=== PATIENT | female | born 1940 | race Caucasian/White ===

== ENCOUNTER → 2017-04-27 | Outpatient (CLI) | payer MEDICARE ==
[~2017-04-27] MED LIST: ASPI-983 PO; BIOT10TA PO; CETI10CA PO; FLEC100T PO; HYDR25TA4 PO; IPRA3AMP INH; LEVO75TA6 PO; LOSA50TA36 PO; METO-351 PO; METO-352 PO; METO-370 PO; MULT-1029 PO; NEBU-113 MC; POTA10TA10 PO; POTA10TA36 PO; RUTI1TAB PO; [UNRECOGNIZED DRUG - OTHER] PO
--- NOTE | 2017-04-28 19:23 | Diagnostic Imaging Report ---
Bilateral screening mammogram 2D views with tomosynthesis. The current study was also evaluated with a Computer Aided Detection (CAD) system. INDICATION: Screening. No current complaints stated on the questionnaire. COMPARISON: 01/17/16. FINDINGS: The breasts are composed of heterogeneously dense parenchyma which may decrease mammographic sensitivity. Scattered benign-appearing calcifications are seen. Allowing for technique and positional differences, no suspicious change is seen. IMPRESSION: Dense breasts with no definite change. ACR BI-RADS Category 2: Benign findings. Result letter will be mailed to the patient. Note: At least 10% of breast cancer is not imaged by mammography. Dictated on workstation # [id number]
== END ==
LOC: RAD 12:53
PROVIDERS: ATTEND Family Medicine
DX: Z12.31 Encounter for screening mammogram for malignant neoplasm of breast (principal)
CPT/HCPCS: 77067

== ENCOUNTER → 2017-08-19 | Outpatient (CLI) | payer MEDICARE ==
--- NOTE | 2017-08-19 09:52 | Diagnostic Imaging Report ---
Procedure: DEXA scan. Indication: Screening for osteoporosis. Comparison: This study does compare to the prior exam of 08/22/2015. The bone density of the hips and spine was measured. The T score for the spine is -2.3. On the prior exam the T score is -1.6. On the prior study, the T score for each hip was -1.1. On this exam, the T score for the left hip is -1.6 and for the right hip -1.7. Impression: There has been a decrease in the bone mineral density of the hips and spine. The T score values remain within the range of osteopenia but there is severe osteopenia of the spine. Dictated by: Dictated on workstation # [id number]
== END ==
LOC: RAD 08:48
PROVIDERS: ATTEND Family Medicine
DX: M85.89 Other specified disorders of bone density and structure, multiple sites (principal)
CPT/HCPCS: 77080

== ENCOUNTER → 2017-08-30 | Outpatient (CLI) | payer MEDICARE ==
--- NOTE | 2017-08-30 17:45 | Diagnostic Imaging Report ---
INDICATION: Bilateral shoulder pain and cervicalgia. AP, lateral, and odontoid views of the cervical spine are obtained. FINDINGS: There is mild diffuse narrowing of the cervical disc spaces with diffuse sclerosis about lumbar facet joints, most pronounced in the lower half of the cervical spine. No fracture is identified. Prevertebral soft tissues are unremarkable. IMPRESSION: Mild diffuse cervical degenerative disc disease and mid to lower degenerative facet arthropathy. No acute abnormality is identified. Dictated by: Dictated on workstation # [id number]
== END ==
LOC: RAD 15:24
PROVIDERS: ATTEND Family Medicine
DX: M50.30 Other cervical disc degeneration, unspecified cervical region (principal); M46.82 Other specified inflammatory spondylopathies, cervical region
CPT/HCPCS: 72040

== ENCOUNTER → 2018-09-22 | Outpatient (CLI) | payer MEDICARE ==
[~2018-09-22] MED LIST changes: -IPRA3AMP INH; +IPRA3AMP31 INH; -LOSA50TA36 PO; +LOSA50TA63 PO
--- NOTE | 2018-09-22 18:56 | Diagnostic Imaging Report ---
INDICATION: Cough. FINDINGS: Heart size is normal. There is some air trapping compatible with COPD. There is some interstitial scarring in both lung bases. There is no pleural effusion or pneumothorax. Mediastinum is unremarkable. IMPRESSION: COPD with some interstitial scarring in the lung bases. Dictated by: Dictated on workstation # [id number]
== END ==
LOC: RAD 12:23
PROVIDERS: ATTEND Family Medicine
DX: J44.9 Chronic obstructive pulmonary disease, unspecified (principal)
CPT/HCPCS: 71046

== ENCOUNTER → 2019-04-03 | Outpatient (CLI) | payer MEDICARE ==
--- NOTE | 2019-04-03 12:25 | Diagnostic Imaging Report ---
INDICATION: Routine screening. COMPARISON: Comparison is made with prior mammograms from 04/27/2017 and 01/17/2016. TECHNIQUE: 2-D and 3-D bilateral screening mammography was performed. The current study was also evaluated with a Computer Aided Detection (CAD) system. 3-D tomosynthesis was also performed and reviewed. FINDINGS: Both breasts remain heterogeneously dense, limiting the sensitivity of mammography. There is a density in the outer aspect of the left breast CC view, posterior depth, which appears more prominent than prior imaging. Additional views are recommended. This may be at the nipple line on the MLO view at posterior depth. Additional views are recommended. No other mass or suspicious microcalcifications are seen. Axillae are unremarkable. IMPRESSION: Left breast density. Additional views are recommended for further evaluation. ACR BI-RADS Category 0: Incomplete. (Needs additional imaging evaluation). Result letter will be mailed to the patient. Note: At least 10% of breast cancer is not imaged by mammography. Dictated by: Dictated on workstation # [id number]
== END ==
LOC: RAD 10:51
PROVIDERS: ATTEND Family Medicine
DX: Z12.31 Encounter for screening mammogram for malignant neoplasm of breast (principal); R92.8 Other abnormal and inconclusive findings on diagnostic imaging of breast
CPT/HCPCS: 77067

== ENCOUNTER → 2019-04-07 | Outpatient (CLI) | payer MEDICARE ==
[~2019-04-07] MED LIST changes: -METO-370 PO; +METO50TA7 PO
--- NOTE | 2019-04-07 16:20 | Diagnostic Imaging Report ---
INDICATION: Left breast density. Patient presented for additional views. COMPARISON: Correlation is made with recent screening study from 04/03/2019. EXAMINATION: 2D and 3D unilateral left diagnostic mammography was performed including spot compression CC and ML as well as conventional 90 degree lateral views. FINDINGS: There is a persistent circumscribed density in the posterior left breast at the nipple line on the ML view and slightly laterally located on the CC view. This is approximately 5 cm from the nipple. This may represent a small cyst. No suspicious calcifications are seen. IMPRESSION: Persistent 5 mm circumscribed density in the outer left breast, 5 cm from the nipple. Further evaluation with ultrasound is recommended and will be performed today. ACR BI-RADS Category 0: Incomplete. (Needs additional imaging evaluation). Result letter will be mailed to the patient. Note: At least 10% of breast cancer is not imaged by mammography. Dictated by: Dictated on workstation # [id number]
--- NOTE | 2019-04-07 16:56 | Diagnostic Imaging Report ---
INDICATION: Left breast density. COMPARISON: Correlation is made with the diagnostic mammogram earlier the same day and screening mammogram from 04/03/2019. EXAMINATION: Sonographic interrogation of the 3 o'clock location of the left breast was performed. FINDINGS: There is a simple cyst at the 3 o'clock location, 3 cm from the nipple. This measures 6 mm x 6 mm x 2 mm. This correlates in size and location of the density noted mammographically. No solid masses are seen. IMPRESSION: Simple cyst at the 3 o'clock location of the left breast, corresponding to the mammographic density. Patient may return to routine annual screening mammography. ACR BI-RADS Category 2: Benign findings. Result letter will be mailed to the patient. Note: At least 10% of breast cancer is not imaged by mammography. Dictated by: Dictated on workstation # [id number]
== END ==
LOC: RAD 14:02
PROVIDERS: ATTEND Family Medicine
DX: N60.02 Solitary cyst of left breast (principal); R92.2 Inconclusive mammogram
CPT/HCPCS: 76642

== ENCOUNTER 2019-05-03 10:50 | Outpatient (RCR) | payer MEDICARE ==
[~2019-05-03 10:50] MED LIST changes: +METO-370 PO; -METO50TA7 PO
== END 2019-05-31 | disposition home or self-care (01) ==
LOC: CR3 10:50
PROVIDERS: ATTEND Family Medicine
DX: Z29.8 Encounter for other specified prophylactic measures (principal)

== ENCOUNTER → 2019-07-13 | Outpatient (CLI) | payer MEDICARE ==
[~2019-07-13] MED LIST changes: -METO-370 PO; +METO50TA7 PO
--- NOTE | 2019-07-13 15:25 | Diagnostic Imaging Report ---
INDICATION: Lower back pain. Radiculopathy. COMPARISON: None FINDINGS: Frontal and lateral radiographic views of the chest were obtained and show exaggeration of lordotic curvature of the lumbar spine. There is no significant anterolisthesis or retrolisthesis. There is no evidence of jumped facets. Vertebral body heights are maintained. There is no evidence of acute fracture. There are mild multilevel degenerative changes consistent with intervertebral disc height loss as well as multilevel facet arthropathy and mild levoscoliotic deformity epicentered at L2. No unexpected radiopaque foreign bodies are seen. IMPRESSION: 1. Multilevel degenerative changes of the lumbar spine as above. 2. No acute fracture or dislocation. Dictated by: Dictated on workstation # [id number]
== END ==
LOC: RAD 14:48
PROVIDERS: ATTEND Family Medicine
DX: M47.26 Other spondylosis with radiculopathy, lumbar region (principal)
CPT/HCPCS: 72100

== ENCOUNTER 2019-08-17 13:00 | Outpatient (RCR) | payer MEDICARE | END 2019-10-17 | disposition home or self-care (01) | PROVIDERS: ATTEND Family Medicine | DX: M54.16 Radiculopathy, lumbar region (principal) ==

== ENCOUNTER → 2019-10-10 | Outpatient (CLI) | payer MEDICARE ==
--- NOTE | 2019-10-10 13:14 | Diagnostic Imaging Report ---
PROCEDURE: US left lower extremity venous. TECHNIQUE: Multiple real-time grayscale images were obtained over the left lower extremity in various projections. Additional duplex Doppler and color Doppler images were also obtained. INDICATION: Leg pain and swelling. There are no prior studies available for comparison. FINDINGS: There is generally good blood flow and compressibility at all levels. There is no sign of a deep venous thrombosis. During the course of the exam, an elongate 3.9 x 1.2 x 1.0 cm anechoic area was identified in the popliteal fossa. Most likely this is a Brown's cyst. IMPRESSION: 1. There is no evidence for deep venous thrombosis. 2. There is a roughly 4 cm Brown's cyst. Dictated by: Dictated on workstation # [id number]
== END ==
LOC: RAD 11:58
PROVIDERS: ATTEND Family Medicine
DX: R22.42 Localized swelling, mass and lump, left lower limb (principal); M79.605 Pain in left leg; M79.89 Other specified soft tissue disorders; M71.22 Synovial cyst of popliteal space [Baker], left knee

== ENCOUNTER → 2019-11-23 | Outpatient (CLI) | payer MEDICARE ==
[2019-11-23 14:08] LABS: BASOPHILS # (AUTO) 0.1 10^3/uL (0.0-0.1); BASOPHILS % (AUTO) 1 % (0-10); EOSINOPHILS # (AUTO) 0.3 10^3/uL (0.0-0.3); EOSINOPHILS % (AUTO) 4 % (0-10); HEMATOCRIT 38 % (35-52); HEMOGLOBIN 12.7 G/DL (11.5-16.0); LYMPHOCYTES % (AUTO) 28 % (12-44); MEAN CORPUSCULAR HEMOGLOBIN 31 PG (25-34); MEAN CORPUSCULAR HGB CONC 34 G/DL (32-36); MEAN CORPUSCULAR VOLUME 92 FL (80-99); MEAN PLATELET VOLUME 8.7 FL (7.4-10.4); MONOCYTES # (AUTO) 0.4 X 10^3 (0.0-1.0); MONOCYTES % (AUTO) 5 % (0-12); NEUTROPHILS # (AUTO) 4.4 X 10^3 (1.8-7.8); NEUTROPHILS % (AUTO) 62 % (42-75); PLATELET COUNT 286 10^3/uL (130-400); RED CELL DISTRIBUTION WIDTH 12.6 % (10.0-14.5); WHITE BLOOD COUNT 7.1 10^3/uL (4.3-11.0)
[2019-11-23 14:29] LABS: ALANINE AMINOTRANSFERASE 16 U/L (0-55); ALBUMIN 4.1 GM/DL (3.2-4.5); ALKALINE PHOSPHATASE 93 U/L (40-136); BILIRUBIN,TOTAL 0.6 MG/DL (0.1-1.0); BUN/CREATININE RATIO 20; CALCIUM 9.2 MG/DL (8.5-10.1); CARBON DIOXIDE 28 MMOL/L (21-32); CHLORIDE 103 MMOL/L (98-107); CREATININE SERUM 0.79 MG/DL (0.60-1.30); GFR ESTIMATED > 60; GLUCOSE 104 MG/DL (70-105); POTASSIUM 3.7 MMOL/L (3.6-5.0); SODIUM 139 MMOL/L (135-145); TOTAL PROTEIN 7.2 GM/DL (6.4-8.2)
--- NOTE | 2019-11-23 17:15 | Diagnostic Imaging Report ---
INDICATION: Shortness of breath. EXAMINATION: PA and lateral chest. FINDINGS: Heart size and pulmonary vascularity are normal. There is 1.3 cm nodular opacity in the right lower lung. There are no infiltrates, effusions or pneumothoraces. IMPRESSION: Pulmonary nodule in right lower lung was not apparent on previous study from 09/22/2018. Dictated by: Dictated on workstation # [id number]
== END ==
LOC: RAD 13:47
PROVIDERS: ATTEND Family Medicine
DX: R91.1 Solitary pulmonary nodule (principal); R06.02 Shortness of breath; R53.83 Other fatigue
CPT/HCPCS: 36415; 71046; 80053; 83880; 85025

== ENCOUNTER → 2019-11-27 | Outpatient (CLI) | payer MEDICARE | LOC: CARD 15:35 | PROVIDERS: ATTEND Nurse Practitioner Family | DX: I49.9 Cardiac arrhythmia, unspecified (principal); R00.0 Tachycardia, unspecified ==

== ENCOUNTER → 2019-11-30 | Outpatient (CLI) | payer MEDICARE ==
[~2019-11-30] MED LIST changes: +AMLO5TAB9 PO; +CARB10DR2 OU; +CARB15DR3 OU; +CETI10TA21 PO; +FURO40TA4 PO; +HOLD METFORMIN - RECEIVED CONTRAST 20 ML VIAL IV SCH; +IOHEXOL 350 MG/ML 100 ML (OMNIPAQUE 350) VIAL IV ONE; +LEVO75TA PO; +MAGN400T8 PO; +POTA-51 PO; +TEMA15CA PO
--- NOTE | 2019-11-30 09:22 | Diagnostic Imaging Report ---
CT CHEST W TECHNIQUE: Multiple contiguous axial images were obtained through the chest with the use of intravenous contrast. All CT scans use one or more of the following dose optimizing techniques: automated exposure control, MA and/or KvP adjustment based on a patient size and exam type, or iterative reconstruction. INDICATION: Abnormal chest x-ray with right lung nodule. Shortness of breath. COMPARISON: Two-view chest of 11/23/2019 FINDINGS: Lungs and airway: No endoluminal nodule within the trachea. Biapical subpleural scarring is present. Moderate centrilobular emphysema is seen. No pulmonary mass or consolidation. There is an irregular nodular linear focus in the right upper lobe along the lateral aspect of the trachea (image 21, series 4). No right middle or lower lobe pulmonary nodule to correspond to the radiographic abnormality indicating this was due to summation shadow of normal pulmonary vasculature. Pleura: Small bilateral pleural effusions. No pneumothorax. Heart and mediastinum: No supraclavicular or axillary lymphadenopathy. No mediastinal, hilar or juxtaphrenic lymphadenopathy. Esophagus is unremarkable. Normal caliber thoracic aorta. Upper abdomen: No acute abnormality in the upper abdomen. Atherosclerotic calcifications in the aorta. Musculoskeletal: No concerning lytic or blastic skeletal lesions. IMPRESSION: 1. There is no right basilar pulmonary nodule to correspond to the radiographic abnormality. This was due to summation shadow of normal pulmonary vasculature. 2. However, there is a mixed linear and nodular focus in the medial aspect of the right upper lobe that is highly likely due to an area of atelectasis and/or scarring. CT chest without contrast in 3 months to assess stability and exclude the possibility of neoplasm. 3. Trace bilateral pleural effusions. 4. Moderate emphysema. Dictated by: Dictated on workstation # [id number]
== END ==
LOC: RAD 08:14
PROVIDERS: ATTEND Nurse Practitioner Family
DX: J43.9 Emphysema, unspecified (principal); J90 Pleural effusion, not elsewhere classified; R91.1 Solitary pulmonary nodule
CPT/HCPCS: 71260

== ENCOUNTER 2019-12-03 20:49 | Inpatient (IN) | payer MEDICARE ==
[~2019-12-03] VITALS: Ht 160 cm; Wt 60.7 kg
[~2019-12-03 20:49] MED LIST changes: -AMLO5TAB9 PO; -CARB10DR2 OU; -CARB15DR3 OU; -CETI10TA21 PO; -FURO40TA4 PO; -HOLD METFORMIN - RECEIVED CONTRAST 20 ML VIAL IV SCH; -IOHEXOL 350 MG/ML 100 ML (OMNIPAQUE 350) VIAL IV ONE; -LEVO75TA PO; -MAGN400T8 PO; -POTA-51 PO; -TEMA15CA PO
[2019-12-03] MEDS ORDERED: dilTIAZem DRIP PRE-MIX 125 ML IV SCH (21:00)
[2019-12-03] MEDS ORDERED: ASPIRIN 81 MG CHEW (CHILDREN'S ASA) PO ONE (21:00)
[2019-12-03] MEDS ORDERED: ENOXAPARIN 80 MG/0.8 ML (LOVENOX) SYR SC ONE (21:00)
[2019-12-03] MEDS ORDERED: NS IV 1000 ML 1,000 ML IV SCH (21:08)
[2019-12-03 21:22] LABS: BASOPHILS # (AUTO) 0.1 10^3/uL (0.0-0.1); BASOPHILS % (AUTO) 1 % (0-10); EOSINOPHILS # (AUTO) 0.1 10^3/uL (0.0-0.3); EOSINOPHILS % (AUTO) 1 % (0-10); HEMATOCRIT 41 % (35-52); HEMOGLOBIN 13.7 G/DL (11.5-16.0); LYMPHOCYTES # (AUTO) 1.3 X 10^3 (1.0-4.0); LYMPHOCYTES % (AUTO) 14 % (12-44); MEAN CORPUSCULAR HEMOGLOBIN 30 PG (25-34); MEAN CORPUSCULAR HGB CONC 33 G/DL (32-36); MEAN CORPUSCULAR VOLUME 91 FL (80-99); MEAN PLATELET VOLUME 9.3 FL (7.4-10.4); MONOCYTES # (AUTO) 0.4 X 10^3 (0.0-1.0); MONOCYTES % (AUTO) 5 % (0-12); NEUTROPHILS # (AUTO) 7.5 X 10^3 (1.8-7.8); NEUTROPHILS % (AUTO) 81 % (42-75); PLATELET COUNT 262 10^3/uL (130-400); WHITE BLOOD COUNT 9.2 10^3/uL (4.3-11.0)
[2019-12-03 21:26] LABS: ALBUMIN 4.3 GM/DL (3.2-4.5); CHLORIDE 100 MMOL/L (98-107); POTASSIUM 3.8 MMOL/L (3.6-5.0); PROTHROMBIN TIME PATIENT 13.6 SEC (12.2-14.7); SODIUM 137 MMOL/L (135-145)
[2019-12-03 21:27] LABS: CALCIUM 9.4 MG/DL (8.5-10.1)
[2019-12-03 21:29] LABS: GLUCOSE 152 MG/DL (70-105); TOTAL PROTEIN 7.7 GM/DL (6.4-8.2)
[2019-12-03 21:30] LABS: CARBON DIOXIDE 20 MMOL/L (21-32)
[2019-12-03 21:31] LABS: BILIRUBIN,TOTAL 0.8 MG/DL (0.1-1.0)
[2019-12-03 21:32] LABS: ALKALINE PHOSPHATASE 116 U/L (40-136); CREATININE SERUM 0.95 MG/DL (0.60-1.30); GFR ESTIMATED 57
[2019-12-03 21:33] LABS: BUN/CREATININE RATIO 21
[2019-12-03 21:35] LABS: ALANINE AMINOTRANSFERASE 39 U/L (0-55)
[2019-12-03 21:36] LABS: CREATINE KINASE 99 U/L (29-168); MAGNESIUM 2.2 MG/DL (1.6-2.4)
--- NOTE | 2019-12-03 21:40 | Diagnostic Imaging Report ---
EXAMINATION: Chest 1 view. HISTORY: Chest pain. COMPARISON: 11/23/2019. FINDINGS: There are small bilateral pleural effusions with overlying atelectasis. There is increased septal line thickening, likely representing pulmonary edema. Heart is enlarged. No pneumothorax. IMPRESSION: Small bilateral pleural effusions with overlying atelectasis and increased septal line thickening likely representing mild pulmonary edema. Dictated by: Dictated on workstation # [id number]
[2019-12-03 21:43] LABS: CREATINE KINASE MB 3.7 NG/ML (<6.6)
--- NOTE | 2019-12-03 21:43 | ED Cardiac General ---
History of Present Illness General Chief Complaint: Cardiac/General Problems Stated Complaint: AFIB/SOB Source: patient History of Present Illness Date Seen by Provider: Dec 03, 2019 Time Seen by Provider: 20:51 Initial Comments PT ARRIVES VIA POV FROM HOME PT STATES "I'M IN A FIB" STATES HER HEART RATE AT HOME HAS BEEN UP TO 120 HAS BEEN HAVING SYMPTOMS FOR SEVERAL WEEKS--ELEVATED HEART RATE PT HAS HISTORY OF ATRIAL FIBRILLATION, AND WAS FOLLOWED BY DR. RICARDO AT [place] PT HAD BEEN PRESCRIBED AN UNKNOWN MEDICATION FOR IT IN THE PAST, BUT STATES SHE HAD BEEN IN RHYTHM FOR QUITE SOME TIME, AND A YEAR AGO SHE HAD A HOLTER MONITOR A YEAR AGO, AND WAS NORMAL, AND MEDICATIONS WERE STOPPED. HAS NOT BEEN ON A BLOOD THINNER, PER PT. HAS NOT SEEN A RECOVERY ADVOCATE IN OVER A YEAR PT HAS HAD OUTPATIENT TESTS RECENTLY FOR THIS HAD ULTRASOUND OF LEG 10/10/19 AND WAS FOUND TO HAVE NO DVT, BUT A PETERSEN'S CYST 11/27/19 HAD AN OUTPATIENT EKG, WHICH SHOWED ATRIAL FIBRILLATION WITH RATE OF 108 11/30/[address] OF CHEST FO RLL LUNG NODULE NOTED ON OUTPATIENT CXR ON 11/23/[address] GROSSMAN SPOKE WITH DR. RICARDO, AND WAS STARTED ON FLECANIDE ON Wednesday12/01/19 STATES THIS MORNING SHE HAD AN EPISODE OF ELEVATED HEART RATE THAT LASTED AN HOUR, THEN GOT BETTER SYMPTOMS RETURNED AROUND 1830 TONIGHT, SO CAME HERE WAS SITTING AT THE TIME WHEN SYMPTOMS BEGAN C/O SHORTNESS OF BREATH NO INCREASE IN CHRONIC LEG SWELLING--WEARS COMPRESSION STOCKINGS/KNEE HIGH NO DIZZINESS OR SYNCOPE NO CHEST PAIN NO FEVER OR COUGH OR RECENT ILLNESS NO KNOWN EXPOSURE TO COVID-19 OR SICK CONTACTS PCP: DR. GROSSMAN RECOVERY ADVOCATE: DR. RICARDO AT [place] Allergies and Home Medications Allergies Coded Allergies: adhesive tape (Unverified Allergy, Unknown, 11/27/15) amoxicillin (Unverified Allergy, Unknown, 11/27/15) codeine (Unverified Allergy, Unknown, 11/27/15) Home Medications Amlodipine Besylate 5 Mg Tablet, 5 MG PO HS, (Reported) Aspirin 81 Mg Tablet.dr, 81 MG PO HS, (Reported) Carboxymethylcellulos/Glycerin 10 Ml Drops.gel, 1-2 DROPS OU TID, (Reported) Carboxymethylcellulose Sodium 15 Ml Drp.lq.gel, 1-2 DROPS OU BID, (Reported) Cetirizine HCl 10 Mg Tablet, 10 MG PO DAILY, (Reported) Flecainide Acetate 100 Mg Tablet, 100 MG PO BID, (Reported) Furosemide 40 Mg Tablet, 40 MG PO Q48H, (Reported) Levothyroxine Sodium 75 Mcg Tablet, 75 MCG PO DAILY, (Reported) Magnesium Oxide 400 Mg Tablet, 400 MG PO Q48H, (Reported) Potassium Chloride 20 Meq Tablet.er, 20 MEQ PO TWICE DAILY Q 48H, (Reported) TAKES 1 TAB TWICE DAILY EVERY 48 HOURS Temazepam 15 Mg Capsule, 15 MG PO HS, (Reported) Patient Home Medication List Home Medication List Reviewed: Yes Review of Systems Review of Systems Constitutional: no symptoms reported; No chills, No diaphoresis, No dizziness, No fever EENTM: No Symptoms Reported Respiratory: See HPI, Shortness of Air Cardiovascular: See HPI; Denies Chest Pain; Irregular Heart Rate, Palpitations Gastrointestinal: No Symptoms Reported Genitourinary: No Symptoms Reported Musculoskeletal: no symptoms reported Skin: no symptoms reported Psychiatric/Neurological: No Symptoms Reported Endocrine: No Symptoms Reported Hematologic/Lymphatic: No Symptoms Reported Past Wtkrijp-Kxdxsd-Irfsci Hx Past Med/Social Hx: Reviewed and Corrections made Patient Social History Alcohol Use: Denies Use Recreational Drug Use: No Smoking Status: Former Smoker Former Smoker, Quit: Nov 26, 1984 Recent Foreign Travel: No Contact w/Someone Who Travel: No Past Medical History Respiratory: Yes Pneumonia Currently Using CPAP: No Currently Using BIPAP: No Cardiac: Yes Atrial Fibrillation Neurological: No Reproductive Disorders: No Genitourinary: Yes Kidney Infection, Bladder Infection Gastrointestinal: No Musculoskeletal: No Endocrine: Yes Hypothyroidsim HEENT: Yes Cataract Loss of Vision: Bilateral Hearing Impairment: Hard of Hearing Cancer: No Psychosocial: Yes Sleep Difficulties, Anxiety Integumentary: No Adverse Reaction/Blood Tranf: No Family Medical History Asthma Colon cancer Deafness or hearing loss Diabetes mellitus Hypertension Neoplasm Thyroid disease Physical Exam Vital Signs Vital Signs - First Documented 12/03/19 12/03/19 20:53 20:55 Temp 36.4 Pulse 174 Resp 22 B/P (MAP) 116/96 (103) O2 Delivery Room Air O2 Flow Rate 2.00 Capillary Refill : Height, Weight, BMI Height: 5'3.50" Weight: 157lbs. 0.9oz. [id number]; 27.9 BMI Method: General Appearance: No Apparent Distress, WD/WN, Anxious Neck: Normal Inspection; No Carotid Bruit, No JVD Respiratory: Normal Breath Sounds, No Accessory Muscle Use, No Respiratory Distress Cardiovascular: No JVD, No Murmur, Normal Peripheral Pulses, Irregularly Irregular, Tachycardia Gastrointestinal: Non Tender, Soft Extremity: Normal Capillary Refill, Normal Range of Motion, Non Tender, No Calf Tenderness, Pedal Edema (TRACE BILATERALLY) Neurologic/Psychiatric: Alert, Oriented x3, No Motor/Sensory Deficits, smeller II- XII Norm as Tested, Other (ANXIOUS, TALKS NON-STOP AT LENGTH IN FULL SENTENCES. ) Skin: Normal Color, Warm/Dry; No Diaphoresis Progress/Results/Core Measures Results/Orders Lab Results Laboratory Tests Test 12/03/19 21:05 Range/Units White Blood Count 9.2 4.3-11.0 10^3/uL Red Blood Count 4.50 4.35-5.85 10^6/uL Hemoglobin 13.7 11.5-16.0 G/DL Hematocrit 41 35-52 % Mean Corpuscular Volume 91 80-99 FL Mean Corpuscular Hemoglobin 30 25-34 PG Mean Corpuscular Hemoglobin Concent 33 32-36 G/DL Red Cell Distribution Width 13.0 10.0-14.5 % Platelet Count 262 130-400 10^3/uL Mean Platelet Volume 9.3 7.4-10.4 FL Neutrophils (%) (Auto) 81 H 42-75 % Lymphocytes (%) (Auto) 14 12-44 % Monocytes (%) (Auto) 5 0-12 % Eosinophils (%) (Auto) 1 0-10 % Basophils (%) (Auto) 1 0-10 % Neutrophils # (Auto) 7.5 1.8-7.8 X 10^3 Lymphocytes # (Auto) 1.3 1.0-4.0 X 10^3 Monocytes # (Auto) 0.4 0.0-1.0 X 10^3 Eosinophils # (Auto) 0.1 0.0-0.3 10^3/uL Basophils # (Auto) 0.1 0.0-0.1 10^3/uL Prothrombin Time 13.6 12.2-14.7 SEC INR Comment 1.0 0.8-1.4 Activated Partial Thromboplast Time 28 24-35 SEC Sodium Level 137 135-145 MMOL/L Potassium Level 3.8 3.6-5.0 MMOL/L Chloride Level 100 98-107 MMOL/L Carbon Dioxide Level 20 L 21-32 MMOL/L Anion Gap 17 H 5-14 MMOL/L Blood Urea Nitrogen 20 H 7-18 MG/DL Creatinine 0.95 0.60-1.30 MG/DL Estimat Glomerular Filtration Rate 57 BUN/Creatinine Ratio 21 Glucose Level 152 H 70-105 MG/DL Calcium Level 9.4 8.5-10.1 MG/DL Corrected Calcium 9.2 8.5-10.1 MG/DL Magnesium Level 2.2 1.6-2.4 MG/DL Total Bilirubin 0.8 0.1-1.0 MG/DL Aspartate Amino Transf (AST/SGOT) 43 H 5-34 U/L Alanine Aminotransferase (ALT/SGPT) 39 0-55 U/L Alkaline Phosphatase 116 40-136 U/L Total Creatine Kinase 99 29-168 U/L Creatine Kinase MB 3.7 <6.6 NG/ML Troponin I < 0.028 <0.028 NG/ML B-Type Natriuretic Peptide 465.6 H <100.0 PG/ML Total Protein 7.7 6.4-8.2 GM/DL Albumin 4.3 3.2-4.5 GM/DL TSH [place] Testing 3.05 0.35-4.94 UIU/ML My Orders Orders - HODA WAGNER DO Ed Iv/Invasive Line Start (12/03/19 20:52) Ekg Tracing (12/03/19 20:52) O2 (12/03/19 20:52) Monitor-Rhythm Ecg Trace Only (12/03/19 20:52) BNP (12/03/19 20:52) Cbc With Automated Diff (12/03/19 20:52) Comprehensive Metabolic Panel (12/03/19 20:52) Creatine Kinase (12/03/19 20:52) Creatine Kinase Mb (12/03/19 20:52) Magnesium (12/03/19 20:52) Protime With Inr (12/03/19 20:52) Partial Thromboplastin Time (12/03/19 20:52) Thyroid Analyzer (12/03/19 20:52) Troponin I (12/03/19 20:52) Chest 1 View, Ap/Pa Only (12/03/19 20:52) Aspirin Chewable Tablet (Baby Aspirin Ch (12/03/19 21:00) Enoxaparin Injection (Lovenox Injection) (12/03/19 21:00) Diltiazem Injection (Cardizem Injection) (12/03/19 21:00) Diltiazem Drip Pre-Mix (Cardizem Drip Pr (12/03/19 21:00) Ed Iv/Invasive Line Start (12/03/19 21:08) Ns Iv 1000 Ml (Sodium Chloride 0.9%) (12/03/19 21:08) Ekg Tracing (12/03/19 21:31) Furosemide Injection (Lasix Injection) (12/03/19 22:15) Catheter(Urinary) Insert & Ass 03,15 (12/03/19 22:01) Digoxin Injection (Lanoxin Injection) (12/03/19 22:15) Amiodarone Injection (Cordarone Injectio (12/03/19 22:15) Medications Given in ED Vital Signs/I&O 12/03/19 12/03/19 20:53 20:55 Temp 36.4 Pulse 174 Resp 22 B/P (MAP) 116/96 (103) O2 Delivery Room Air Nasal Cannula O2 Flow Rate 2.00 Progress Progress Note : Progress Note GIVEN ASPIRIN AND LOVENOX GAVE CARDIZEM BOLUS AND DRIP, FOLLOWED BY A DOSE OF DIGOXIN GAVE AMIODARONE BOLUS AND DRIP NO DETERIORATION IN PT'S CONDITION DURING ER STAY AT TIME OF ADMIT, HEART RATE IN 80'S, BUT STILL IN ATRIAL FIBRILLATION. BP 130'S/80'S, O2 SATS IN MID 90'S Initial ECG Impression Date: Dec 03, 2019 Initial ECG Impression Time: 21:04 Initial ECG Rate: 143 Initial ECG Rhythm: A Fib/Flutter (WIDE COMPLEX TACHYCARDIA) EKG : EKG Time: 21:17 Rate: 105 (105) Rhythm: A Fib/Flutter (LBBB) ECG Impression: Atrial Fibrillation w/RVR Comment EKG #3--AT 2304, RATE 79. ATRIAL FIB/FLUTTER, LBBB--UNCHANGED Diagnostic Imaging Comments CXR--PER RADIOLOGIST REPORT AT 2142 MPRESSION: Small bilateral pleural effusions with overlying atelectasis and increased septal line thickening likely representing mild pulmonary edema. Reviewed: Reviewed by Me Departure Communication (Admissions) 2206--SPOKE WITH DR. CARLSON, RECOVERY ADVOCATE AIRCRAFT DETAIL DRAFTSPERSON. ADVISES TO START AMIODARONE, WILL DO ECHO IN AM, AND WILL DO CARDIOVERSION IF STILL IN A FIB TOMORROW. 2209--SPOKE WITH DR. Eric CHANEL, COVERING FOR DR. GROSSMAN. ACCEPTS PT FOR ADMIT. Impression Primary Impression: Paroxysmal atrial fibrillation with RVR Additional Impression: CHF (congestive heart failure) Disposition: ADMITTED INPATIENT Condition: Improved Admissions Decision to Admit Reason: Admit from ER (General) Decision to Admit/Date: Dec 03, 2019 Time/Decision to Admit Time: 22:00 Departure-Patient Inst. Referrals: GENA GROSSMAN DO (PCP/Family) Primary Care Physician HODA WAGNER DO Dec 03, 2019 21:42
[2019-12-03 21:56] LABS: TSH (THYROID ANALYZER) 3.05 UIU/ML (0.35-4.94)
[2019-12-03] MEDS ORDERED: AMIODARONE FOR BOLUS 150 MG in D5W 100 ML IVPB 100 ML IV ONE (22:15)
[2019-12-03] MEDS ORDERED: AMIODARONE INJECTION 450 MG in D5W IV SOLUTION (EXCEL) 250 ML IV SCH (22:15)
[2019-12-03] MEDS ORDERED: DIGOXIN 0.25 MG/ML (LANOXIN) 2 ML AMP IV ONE (22:15)
[2019-12-03] MEDS ORDERED: FUROSEMIDE 40 MG/4 ML INJ (LASIX) IVP ONE (22:15)
[2019-12-04] VITALS (28 sets, daily range): BP systolic 113–145; BP diastolic 65–94
[2019-12-04] MEDS ORDERED: ALPRAZolam 0.25 MG (XANAX) TAB PO ONE (01:30)
[2019-12-04] MEDS: NS IV 1000 ML 1,000 ML IV SCH (02:04)
--- NOTE | 2019-12-04 02:04 | NUR ---
0.9% SODIUM CHLORIDE NOT ADMINISTERED DUE TO PT GETTING AMIODARONE AND CARDIZEM INFUSION AT THIS TIME. MEDICATIONS KEEPING LINE OPEN AND PT RECEIVED LASIX DUE TO EXCESS FLUID.
[2019-12-04 03:42] LABS: BASOPHILS % (AUTO) 0 % (0-10); EOSINOPHILS % (AUTO) 0 % (0-10); HEMATOCRIT 38 % (35-52); HEMOGLOBIN 12.7 G/DL (11.5-16.0); LYMPHOCYTES # (AUTO) 0.6 X 10^3 (1.0-4.0); LYMPHOCYTES % (AUTO) 5 % (12-44); MEAN CORPUSCULAR HEMOGLOBIN 31 PG (25-34); MEAN CORPUSCULAR HGB CONC 33 G/DL (32-36); MEAN CORPUSCULAR VOLUME 93 FL (80-99); MEAN PLATELET VOLUME 9.3 FL (7.4-10.4); MONOCYTES # (AUTO) 0.5 X 10^3 (0.0-1.0); MONOCYTES % (AUTO) 4 % (0-12); NEUTROPHILS # (AUTO) 10.4 X 10^3 (1.8-7.8); NEUTROPHILS % (AUTO) 90 % (42-75); PLATELET COUNT 245 10^3/uL (130-400); WHITE BLOOD COUNT 11.5 10^3/uL (4.3-11.0)
[2019-12-04 03:57] LABS: ALBUMIN 3.9 GM/DL (3.2-4.5); CHLORIDE 102 MMOL/L (98-107); POTASSIUM 3.9 MMOL/L (3.6-5.0)
[2019-12-04 03:58] LABS: SODIUM 136 MMOL/L (135-145)
[2019-12-04 03:59] LABS: CALCIUM 8.4 MG/DL (8.5-10.1)
[2019-12-04 04:00] LABS: GLUCOSE 193 MG/DL (70-105); TOTAL PROTEIN 7.1 GM/DL (6.4-8.2)
[2019-12-04 04:01] LABS: CARBON DIOXIDE 19 MMOL/L (21-32)
[2019-12-04 04:02] LABS: BILIRUBIN,TOTAL 0.9 MG/DL (0.1-1.0)
[2019-12-04 04:03] LABS: ALKALINE PHOSPHATASE 108 U/L (40-136); PHOSPHORUS 5.1 MG/DL (2.3-4.7)
[2019-12-04 04:04] LABS: CREATININE SERUM 0.98 MG/DL (0.60-1.30); GFR ESTIMATED 55
[2019-12-04 04:05] LABS: BUN/CREATININE RATIO 20
[2019-12-04 04:06] LABS: ALANINE AMINOTRANSFERASE 38 U/L (0-55)
[2019-12-04] MEDS: AMIODARONE 450 MG/250 ML D5W EXCEL IV SCH ×4 (06:39→20:10)
--- NOTE | 2019-12-04 07:29 | Diagnostic Imaging Report ---
EXAMINATION: Chest 1 view HISTORY: Atrial fibrillation. Heart failure. COMPARISON: Chest radiograph on 12/03/2019. FINDINGS: Stable cardiomegaly with continued central pulmonary vascular congestion and interstitial edema. Bilateral small pleural effusions are again seen, slightly increased on the left. No pneumothorax. No acute osseous abnormalities. IMPRESSION: 1. Continued cardiomegaly with central pulmonary vascular congestion and interstitial edema. 2. Small increase in the left pleural effusion with stable right pleural effusion. Dictated by: Dictated on workstation # [id number]
[2019-12-04] MEDS: ASPIRIN E.C. 81 MG (ECOTRIN) TAB PO SCH (07:52)
[2019-12-04] MEDS ORDERED: ENOXAPARIN 80 MG/0.8 ML (LOVENOX) SYR SC SCH (09:00)
[2019-12-04] MEDS ORDERED: FUROSEMIDE 40 MG/4 ML INJ (LASIX) IVP NR (13:00)
[2019-12-04 13:49] LABS: BILIRUBIN,URINE NEGATIVE (NEGATIVE); CLARITY,URINE SL CLOUDY; COLOR,URINE YELLOW; GLUCOSE, URINE (UA) NEGATIVE (NEGATIVE); KETONES,URINE NEGATIVE (NEGATIVE); LEUKOCYTE ESTERASE ,URINE TRACE (NEGATIVE); NITRITE,URINE NEGATIVE (NEGATIVE); PROTEIN,URINE NEGATIVE (NEGATIVE)
[2019-12-04] MEDS ORDERED: POTA-51 PO (13:51)
[2019-12-04] MEDS ORDERED: LEVO75TA PO (13:51)
[2019-12-04] MEDS ORDERED: CARB15DR3 OU (13:51)
[2019-12-04] MEDS ORDERED: ASPI-983 PO (13:51)
[2019-12-04] MEDS ORDERED: CETI10TA21 PO (13:51)
[2019-12-04] MEDS ORDERED: CARB10DR2 OU (13:51)
[2019-12-04] MEDS ORDERED: MAGN400T8 PO (13:51)
[2019-12-04] MEDS ORDERED: FURO40TA4 PO (13:51)
[2019-12-04] MEDS ORDERED: FLEC100T PO (13:51)
[2019-12-04] MEDS ORDERED: TEMA15CA PO (13:51)
[2019-12-04] MEDS ORDERED: AMLO5TAB9 PO (13:51)
--- NOTE | 2019-12-04 13:53 | NUR ---
SPOKE WITH THE PT (SHE HAD A MED LIST & I PUT A COPY IN HER CHART) AND WENT THRU THE EXT MED HISTORY TO COMPLETE THE MED REC AMLODIPINE 5MG: ON THE EXT MED HISTORY IT SHOWS 1 TAB BID HOWEVER THE PT SAID HE DR RECENTLY CHANGED THAT AND SHE IS ONLY TAKING 1 TAB HS FUROSEMIDE 40MG: THE EXT MED HISTORY SHOWS 1 TAB DAILY BUT SHE WAS TOLD BY HER DR TO DECREASE THE FREQUENCY AND JUST TAKE IT EVERY OTHER DAY. POTASSIUM 20MEQ: DIRECTIONS PER THE EXT MED HISTORY SHOW 1 TAB BID HOWEVER WHEN THE DIRECTIONS CHANGED ON THE FUROSEMIDE 40MG THE PT ALSO WENT DOWN TO TAKE 1 TAB BID EVERY OTHER DAY MAGNESIUM 400MG: DIRECTIONS ON THE EXT MED HISTORY SHOW TAB DAILY, THE PT SAID IT WAS VERY DIFFICULT TO SPLIT THE TAB IN HALF SO HER PCP TOLD HER TO JUST TAKE EVERY OTHER DAY OTC MEDS: ZYRTEC ASPIRIN 81 REFRESH LIQUIGEL REFRESH OPTIVE
[2019-12-04 14:07] LABS: BACTERIA,URINE FEW /HPF; RBC,URINE 25-50 /HPF
--- NOTE | 2019-12-04 17:39 | Consultation-Cardiology ---
HPI-Cardiology Cardiology Consultation: Date of Consultation 12/04/19 Date of Admission Attending Physician Devonte Packer MD Admitting Physician Cony Poole DO Consulting Physician Ban GARNICA MD HPI: Time Seen by a Provider: 16:00 Chief Complaint: Atrial fibrillation, shortness of breath This is a 79-year-old lady with history of paroxysmal atrial fibrillation. She follows Dr. Noble in [place]. She denies any other cardiac complaints. She smoked in the remote past but quit long time back. Family history is negative. She presented with shortness of breath and was found to be in atrial fibrillation with rapid ventricular rate. She was started on Cardizem infusion. She was also given Lovenox. She denies any chest pain, syncope, near-syncope. Review of Systems-Cardiology Review of Systems Constitutional: As described under HPI; No As described under HPI, No no symptoms reported, No chills, No fever, No lightheadedness Eyes: No As described under HPI, No no symptoms reported, No blindness, No blurred vision, No contact lenses, No drainage, No decreased acuity, No foreign body sensation, No pain, No vision change Ears/Nose/Throat: No As described under HPI, No no symptoms reported, No chronic hearing loss, No ear discharge, No ear pain, No nasal drainage, No ulcerations Respiratory: No no symptoms reported; As described under HPI; No As described under HPI, No cough, No orthopnea; shortness of breath; No SOB with excertion Cardiovascular: No no symptoms reported; As described under HPI; No As described under HPI, No chest pain, No edema, No irregular heart rate, No li ghtheadedness; palpitations Gastrointestinal: No no symptoms reported, No As described under HPI, No abdom en distended, No abdominal pain, No blood streaked bowels, No constipation, No diarrhea, No nausea, No vomiting, No stool coloration changes Genitourinary: No As described under HPI, No burning, No dysuria, No discharge, No frequency, No flank pain, No hematuria, No urgency : Yes : No Skin: No rash, No skin related problems, No ulcerations Psychiatric/Neurological: No anxiety, No depression, No seizure, No focal weakness, No syncope Hematologic: No bleeding abnormalities SKA-Nabkzx-Zbbnig Hx Patient Social History Alcohol Use: Past History Recreational Drug Use: No Smoking Status: Former Smoker Recent Foreign Travel: No Recent Infectious Disease Expo: No Hospitalization with Isolation: Denies Past Medical History PMH As described under Assessment. Family Medical History Family History: Asthma Colon cancer Deafness or hearing loss Diabetes mellitus Hypertension Neoplasm Thyroid disease Allergies and Home Medications Allergies Coded Allergies: adhesive tape (Unverified Allergy, Unknown, 11/27/15) amoxicillin (Unverified Allergy, Unknown, 11/27/15) codeine (Unverified Allergy, Unknown, 11/27/15) Home Medications Amlodipine Besylate 5 Mg Tablet, 5 MG PO HS, (Reported) Aspirin 81 Mg Tablet.dr, 81 MG PO HS, (Reported) Carboxymethylcellulos/Glycerin 10 Ml Drops.gel, 1-2 DROPS OU TID, (Reported) Carboxymethylcellulose Sodium 15 Ml Drp.lq.gel, 1-2 DROPS OU BID, (Reported) Cetirizine HCl 10 Mg Tablet, 10 MG PO DAILY, (Reported) Flecainide Acetate 100 Mg Tablet, 100 MG PO BID, (Reported) Furosemide 40 Mg Tablet, 40 MG PO Q48H, (Reported) Levothyroxine Sodium 75 Mcg Tablet, 75 MCG PO DAILY, (Reported) Magnesium Oxide 400 Mg Tablet, 400 MG PO Q48H, (Reported) Potassium Chloride 20 Meq Tablet.er, 20 MEQ PO TWICE DAILY Q 48H, (Reported) TAKES 1 TAB TWICE DAILY EVERY 48 HOURS Temazepam 15 Mg Capsule, 15 MG PO HS, (Reported) Patient Home Medication List Home Medication List Reviewed: Yes Physical Exam-Cardiology Physical Exam Vital Signs/I&O 12/04/19 12/04/19 12/04/19 12/04/19 06:00 06:39 07:00 07:48 Pulse 80 77 64 Resp 21 14 B/P (MAP) 136/75 (95) 118/72 (87) Pulse Ox 95 100 98 O2 Delivery Nasal Cannula Nasal Cannula Nasal Cannula O2 Flow Rate 5.00 5.00 4.00 12/04/19 12/04/19 12/04/19 12/04/19 07:51 08:00 08:00 08:29 Temp 36.8 Pulse 83 Resp 25 B/P (MAP) 133/77 (95) Pulse Ox 97 O2 Delivery Nasal Cannula Nasal Cannula Nasal Cannula O2 Flow Rate 4.00 4.00 3.00 12/04/19 12/04/19 12/04/19 6/29/20 09:00 09:42 10:00 11:00 Pulse 71 82 84 Resp 15 40 26 B/P (MAP) 120/67 (84) 124/71 (88) 141/75 (97) Pulse Ox 98 95 92 O2 Delivery Nasal Cannula Nasal Cannula Nasal Cannula Nasal Cannula O2 Flow Rate 3.00 2.00 2.00 2.00 12/04/19 12/04/19 12/04/19 12/04/19 11:01 12:00 12:00 12:00 Temp 36.8 Pulse 76 Resp 27 B/P (MAP) 137/69 (91) Pulse Ox 93 98 O2 Delivery Nasal Cannula Nasal Cannula Nasal Cannula O2 Flow Rate 3.00 2.00 3.00 12/04/19 12/04/19 12/04/19 12/04/19 12:38 13:00 14:00 15:00 Pulse 75 80 78 80 Resp 24 28 34 B/P (MAP) 145/70 (95) 136/91 (106) 140/79 (99) Pulse Ox 93 95 90 O2 Delivery Nasal Cannula Nasal Cannula Nasal Cannula O2 Flow Rate 2.00 2.00 2.00 12/04/19 12/04/19 15:51 16:00 Temp 36.4 Pulse Ox 98 O2 Delivery Nasal Cannula O2 Flow Rate 2.00 12/04/19 00:00 Intake Total 1103 ml Balance 1103 ml Capillary Refill : Less Than 3 Seconds Constitutional: appears stated age, AAO x 3; No apparent distress; well- developed, well-nourished HEENT: PERRL; No discharge; hearing is well preserved, oral hygience is good; No ulceration, No xanthelasmas are seen Neck: No carotid bruit; carotid pulses are 2 + bilaterally Respiratory: chest is bilaterally symmetric, lungs clear to auscultation Cardiovascular: irregularly irregular, S1 and S2; No diastolic murmur, No systolic murmur Gastrointestinal: soft, audible bowel sounds; No spleenomegaly Rectal: deferred Extremities: normal range of motion, non-tender, normal inspection; No clubbing, No cyanosis; no lower extremity edema bilateral; No significant edema Neurologic/Psychiatric: no motor/sensory deficits, alert, normal mood/affect, oriented x 3, power is 5/5 both on sides Skin: normal color, warm/dry; No rash, No ulcerations Data Review Labs Laboratory Tests 12/03/19 21:05: White Blood Count 9.2, Red Blood Count 4.50, Hemoglobin 13.7, Hematocrit 41, Mean Corpuscular Volume 91, Mean Corpuscular Hemoglobin 30, Mean Corpuscular He moglobin Concent 33, Red Cell Distribution Width 13.0, Platelet Count 262, Mean Platelet Volume 9.3, Neutrophils (%) (Auto) 81H, Lymphocytes (%) (Auto) 14, Monocytes (%) (Auto) 5, Eosinophils (%) (Auto) 1, Basophils (%) (Auto) 1, Neutr ophils # (Auto) 7.5, Lymphocytes # (Auto) 1.3, Monocytes # (Auto) 0.4, Eosinophils # (Auto) 0.1, Basophils # (Auto) 0.1, Prothrombin Time 13.6, INR Comment 1.0, Activated Partial Thromboplast Time 28, Sodium Level 137, Potassium Level 3.8, Chloride Level 100, Carbon Dioxide Level 20L, Anion Gap 17H, Blood Urea Nitrogen 20H, Creatinine 0.95, Estimat Glomerular Filtration Rate 57, BUN/Creatinine Ratio 21, Glucose Level 152H, Calcium Level 9.4, Corrected Calcium 9.2, Magnesium Level 2.2, Total Bilirubin 0.8, Aspartate Amino Transf (AST/SGOT) 43H, Alanine Aminotransferase (ALT/SGPT) 39, Alkaline Phosphatase 116, Total Creatine Kinase 99, Creatine Kinase MB 3.7, Troponin I < 0.028, B- Type Natriuretic Peptide 465.6H, Total Protein 7.7, Albumin 4.3, TSH [place] Testing 3.05 12/04/19 03:30: White Blood Count 11.5H, Red Blood Count 4.11L, Hemoglobin 12.7, Hematocrit 38, Mean Corpuscular Volume 93, Mean Corpuscular Hemoglobin 31, Mean Corpuscular Hemoglobin Concent 33, Red Cell Distribution Width 13.0, Platelet Count 245, Mean Platelet Volume 9.3, Neutrophils (%) (Auto) 90H, Lymphocytes (%) (Auto) 5L, Monocytes (%) (Auto) 4, Eosinophils (%) (Auto) 0, Basophils (%) (Auto) 0, Neut rophils # (Auto) 10.4H, Lymphocytes # (Auto) 0.6L, Monocytes # (Auto) 0.5, Eosinophils # (Auto) 0.0, Basophils # (Auto) 0.0, Sodium Level 136, Potassium Level 3.9, Chloride Level 102, Carbon Dioxide Level 19L, Anion Gap 15H, Blood Urea Nitrogen 20H, Creatinine 0.98, Estimat Glomerular Filtration Rate 55, BUN/Creatinine Ratio 20, Glucose Level 193H, Calcium Level 8.4L, Corrected Calcium 8.5, Magnesium Level 2.0, Total Bilirubin 0.9, Aspartate Amino Transf (AST/SGOT) 36H, Alanine Aminotransferase (ALT/SGPT) 38, Alkaline Phosphatase 108, Troponin I < 0.028, B-Type Natriuretic Peptide 547.5H, Total Protein 7.1, Albumin 3.9, Phosphorus Level 5.1H 12/04/19 13:00: Urine Color YELLOW, Urine Clarity SL CLOUDY, Urine pH 6.0, Urine Specific [place] 1.025H, Urine Protein NEGATIVE, Urine Glucose (UA) NEGATIVE, Urine Ketones NEGATIVE, Urine Nitrite NEGATIVE, Urine Bilirubin NEGATIVE, Urine Urobilinogen 0.2, Urine Leukocyte Esterase TRACEH, Urine RBC (Auto) 3+H, Urine RBC 25-50H, Urine WBC 5-10H, Urine Squamous Epithelial Cells NONE, Urine Crystals NONE, Urine Bacteria FEWH, Urine Casts NONE, Urine Mucus NEGATIVE, Urine Culture Indicated YES ECG Impression ECG Initial ECG Impression: Atrial Fibrillation A/P-Cardiology Assessment/Admission Diagnosis Atrial fibrillation with rapid ventricular rate, Hypertension Plan Continue IV Cardizem. Change Lovenox to Eliquis 5 mg twice a day. CHADSVASC score of 4 due to age over 75, female gender, hypertension. Therefore oral anticoagulation is superior to aspirin alone. I also discussed at length with the patient and recommended transesophageal echocardiogram assisted cardioversion tomorrow morning. I discussed the risk of esophageal damage of 1/500 and risk of stroke of 1 percent. Patient understands the risk and would like to proceed with transesophageal echocardiogram assisted cardioversion. Continue amlodipine for blood pressure control. We'll also recommend an echocardiogram. Thank you for your consultation. Please call me if you have any questions. Danilo Garnica MD, FACP, FACC, FSCAI, FHRS, CCDS Interventional Cardiology Cardiac Electrophysiology Vascular Medicine and Endovascular Interventions Clinical Quality Measures DVT/VTE Risk/Contraindication: RFS Level Per Nursing on Admit: 4+=Very High Ban GARNICA MD Dec 04, 2019 17:39
--- NOTE | 2019-12-04 18:59 | History & Physical ---
History of Present Illness History of Present Illness Reason for visit/HPI This is a 79 year old female with a history of paroxysmal atrial fibrillation about 4 years ago. She converted back to a normal sinus rhythm with antiarrhythmics but did not tolerate them so she was weaned off of them and has had no further atrial fibrillation episodes until the past week. She was started on fleicanide by her channel worker in [place] and was to follow up with him in 1 week. However, she presented to the emergency room with worsening shortness of air. She was found to be in atrial fibrillation with a rapid ventricular response. She was also in diastolic congestive heart failure with an elevated BNP. She was given IV lasix and started on lovenox and a cardizem drip and admitted to the ICU for cardiology consult. Date of Admission Dec 03, 2019 at 22:10 Date Seen by a Provider: Dec 04, 2019 Time Seen by a Provider: 12:45 I consulted on this patient on 12/04/19 18:53 Attending Physician Devonte Packer MD Admitting Physician Gena Grossman DO Consult Allergies and Home Medications Allergies Coded Allergies: adhesive tape (Unverified Allergy, Unknown, 11/27/15) amoxicillin (Unverified Allergy, Unknown, 11/27/15) codeine (Unverified Allergy, Unknown, 11/27/15) Home Medications Amlodipine Besylate 5 Mg Tablet, 5 MG PO HS, (Reported) Aspirin 81 Mg Tablet.dr, 81 MG PO HS, (Reported) Carboxymethylcellulos/Glycerin 10 Ml Drops.gel, 1-2 DROPS OU TID, (Reported) Carboxymethylcellulose Sodium 15 Ml Drp.lq.gel, 1-2 DROPS OU BID, (Reported) Cetirizine HCl 10 Mg Tablet, 10 MG PO DAILY, (Reported) Flecainide Acetate 100 Mg Tablet, 100 MG PO BID, (Reported) Furosemide 40 Mg Tablet, 40 MG PO Q48H, (Reported) Levothyroxine Sodium 75 Mcg Tablet, 75 MCG PO DAILY, (Reported) Magnesium Oxide 400 Mg Tablet, 400 MG PO Q48H, (Reported) Potassium Chloride 20 Meq Tablet.er, 20 MEQ PO TWICE DAILY Q 48H, (Reported) TAKES 1 TAB TWICE DAILY EVERY 48 HOURS Temazepam 15 Mg Capsule, 15 MG PO HS, (Reported) Patient Home Medication List Home Medication List Reviewed: Yes Past Zamicki-Iggpbd-Vmjfky Hx Past Med/Social Hx: Reviewed Nursing Past Med/Soc Hx Patient Social History Marrital Status: Alcohol Use: Past History Recreational Drug Use: No Smoking Status: Former Smoker Former Smoker, Quit: Nov 26, 1984 Recent Foreign Travel: No Contact w/other who traveled: No Recent Hopitalizations: No Recent Infectious Disease Expo: No Seasonal Allergies Seasonal Allergies: No Past Medical History Currently Using CPAP: No Currently Using BIPAP: No Cardiac: Chronic Edema/Swelling, Hypertension Reproductive: No Genitourinary: Kidney Infection Musculoskeletal: Scoliosis Endocrine: Hypothyroidsim HEENT: Cataract Loss of Vision: Bilateral Hearing Impairment: Hard of Hearing Psychosocial: Sleep Difficulties History of Blood Disorders: No Adverse Reaction to Blood Drake: No Family History Asthma Colon cancer Deafness or hearing loss Diabetes mellitus Hypertension Neoplasm Thyroid disease Review of Systems Constitutional: malaise, weakness EENTM: No see HPI, No no symptoms reported, No ear discharge, No hearing loss, No ear pain, No blurred vision, No double vision, No eye pain, No tearing, No vision loss, No dental problems, No hoarseness, No mouth pain, No mouth swelling, No epistaxis, No nose congestion, No nose pain, No throat pain, No throat swelling, No other Respiratory: dyspnea on exertion, short of breath Cardiovascular: edema, palpitations Gastrointestinal: loss of appetite Musculoskeletal: muscle weakness Skin: No no symptoms reported, No see HPI, No change in color, No change in hair/nails, No dryness, No hx of skin cancer, No lesions, No lumps, No pruritus, No rash, No other Psychiatric/Neurological: Anxiety, Tremors, Weakness Physical Exam Vital Signs Vital Signs - First Documented 12/03/19 12/03/19 12/04/19 20:53 20:55 00:52 Temp 36.4 Pulse 174 Resp 22 B/P (MAP) 116/96 (103) Pulse Ox 92 O2 Delivery Room Air O2 Flow Rate 2.00 Capillary Refill : Less Than 3 Seconds Height, Weight, BMI Height: 5'3.50" Weight: 157lbs. 0.9oz. [id number]; 24.80 BMI Method: General Appearance: Mild Distress HEENT: Normal ENT Inspection Neck: Supple Respiratory: Decreased Breath Sounds, Respiratory Distress Cardiovascular: Gallop/S4, Irregularly Irregular Gastrointestinal: Normal Bowel Sounds, Non Tender, Soft Rectal: Deferred Back: No CVA Tenderness Extremity: Non Tender, No Calf Tenderness, No Pedal Edema Neurologic/Psychiatric: Alert, Oriented x3 Skin: Warm/Dry Comments Laboratory Tests 12/03/19 21:05: White Blood Count 9.2, Red Blood Count 4.50, Hemoglobin 13.7, Hematocrit 41, Mean Corpuscular Volume 91, Mean Corpuscular Hemoglobin 30, Mean Corpuscular Hemoglobin Concent 33, Red Cell Distribution Width 13.0, Platelet Count 262, Mean Platelet Volume 9.3, Neutrophils (%) (Auto) 81H, Lymphocytes (%) (Auto) 14, Monocytes (%) (Auto) 5, Eosinophils (%) (Auto) 1, Basophils (%) (Auto) 1, Neutrophils # (Auto) 7.5, Lymphocytes # (Auto) 1.3, Monocytes # (Auto) 0.4, Eosinophils # (Auto) 0.1, Basophils # (Auto) 0.1, Prothrombin Time 13.6, INR Comment 1.0, Activated Partial Thromboplast Time 28, Sodium Level 137, Potassium Level 3.8, Chloride Level 100, Carbon Dioxide Level 20L, Anion Gap 17H, Blood Urea Nitrogen 20H, Creatinine 0.95, Estimat Glomerular Filtration Rate 57, BUN/Creatinine Ratio 21, Glucose Level 152H, Calcium Level 9.4, Corrected Calcium 9.2, Magnesium Level 2.2, Total Bilirubin 0.8, Aspartate Amino Transf (AST/SGOT) 43H, Alanine Aminotransferase (ALT/SGPT) 39, Alkaline Phosphatase 116, Total Creatine Kinase 99, Creatine Kinase MB 3.7, Troponin I < 0.028, B- Type Natriuretic Peptide 465.6H, Total Protein 7.7, Albumin 4.3, TSH [place] Testing 3.05 12/04/19 03:30: White Blood Count 11.5H, Red Blood Count 4.11L, Hemoglobin 12.7, Hematocrit 38, Mean Corpuscular Volume 93, Mean Corpuscular Hemoglobin 31, Mean Corpuscular Hemoglobin Concent 33, Red Cell Distribution Width 13.0, Platelet Count 245, Mean Platelet Volume 9.3, Neutrophils (%) (Auto) 90H, Lymphocytes (%) (Auto) 5L, Monocytes (%) (Auto) 4, Eosinophils (%) (Auto) 0, Basophils (%) (Auto) 0, Neutrophils # (Auto) 10.4H, Lymphocytes # (Auto) 0.6L, Monocytes # (Auto) 0.5, Eosinophils # (Auto) 0.0, Basophils # (Auto) 0.0, Sodium Level 136, Potassium Level 3.9, Chloride Level 102, Carbon Dioxide Level 19L, Anion Gap 15H, Blood Urea Nitrogen 20H, Creatinine 0.98, Estimat Glomerular Filtration Rate 55, BUN/Creatinine Ratio 20, Glucose Level 193H, Calcium Level 8.4L, Corrected Calcium 8.5, Magnesium Level 2.0, Total Bilirubin 0.9, Aspartate Amino Transf (AST/SGOT) 36H, Alanine Aminotransferase (ALT/SGPT) 38, Alkaline Phosphatase 108, Troponin I < 0.028, B-Type Natriuretic Peptide 547.5H, Total Protein 7.1, Albumin 3.9, Phosphorus Level 5.1H 12/04/19 13:00: Urine Color YELLOW, Urine Clarity SL CLOUDY, Urine pH 6.0, Urine Specific [place] 1.025H, Urine Protein NEGATIVE, Urine Glucose (UA) NEGATIVE, Urine Ketones NEGATIVE, Urine Nitrite NEGATIVE, Urine Bilirubin NEGATIVE, Urine Urobilinogen 0.2, Urine Leukocyte Esterase TRACEH, Urine RBC (Auto) 3+H, Urine RBC 25-50H, Urine WBC 5-10H, Urine Squamous Epithelial Cells NONE, Urine Crystals NONE, Urine Bacteria FEWH, Urine Casts NONE, Urine Mucus NEGATIVE, Urine Culture Indicated YES Assessment/Plan Assessment and Plan 1. Atrial Fibrillation with RVR--on Cardizem drip and loaded with amiodarone, starte on lovenox, cardiology consulted 2. Acute Diastolic CHF--given IV lasix in ER, repeat now x1 3. Hypertension--will resume oral meds once weaned from Cardizem drip 4. Hypothryoidism--update lab 5. Anxiety--xanax prn Admission Diagnosis Admission Status: Inpatient Order (span 2 midnights) Reason for Inpatient Admission: Will need IV cardizem and anticoagulation and monitoring in ICU for at least 48 hrs Clinical Quality Measures DVT/VTE Risk/Contraindication: RFS Level Per Nursing on Admit: 4+=Very High GENA GROSSMAN DO Dec 04, 2019 18:59
[2019-12-04] MEDS: APIXABAN 5 MG (ELIQUIS) TABLET PO SCH (20:09)
[2019-12-05] VITALS (24 sets, daily range): BP systolic 109–163; BP diastolic 63–104
[2019-12-05] MEDS: NS IV 1000 ML 1,000 ML IV SCH (02:31)
[2019-12-05 03:59] LABS: BASOPHILS % (AUTO) 0 % (0-10); EOSINOPHILS % (AUTO) 0 % (0-10); HEMATOCRIT 37 % (35-52); HEMOGLOBIN 12.3 G/DL (11.5-16.0); LYMPHOCYTES # (AUTO) 1.3 X 10^3 (1.0-4.0); LYMPHOCYTES % (AUTO) 12 % (12-44); MEAN CORPUSCULAR HEMOGLOBIN 30 PG (25-34); MEAN CORPUSCULAR HGB CONC 33 G/DL (32-36); MEAN CORPUSCULAR VOLUME 91 FL (80-99); MEAN PLATELET VOLUME 9.7 FL (7.4-10.4); MONOCYTES # (AUTO) 0.7 X 10^3 (0.0-1.0); MONOCYTES % (AUTO) 6 % (0-12); NEUTROPHILS # (AUTO) 8.3 X 10^3 (1.8-7.8); NEUTROPHILS % (AUTO) 81 % (42-75); PLATELET COUNT 222 10^3/uL (130-400); RED CELL DISTRIBUTION WIDTH 12.6 % (10.0-14.5); WHITE BLOOD COUNT 10.3 10^3/uL (4.3-11.0)
[2019-12-05 04:10] LABS: CHLORIDE 97 MMOL/L (98-107); SODIUM 135 MMOL/L (135-145)
[2019-12-05 04:12] LABS: CALCIUM 8.7 MG/DL (8.5-10.1); GLUCOSE 97 MG/DL (70-105)
[2019-12-05 04:14] LABS: CARBON DIOXIDE 25 MMOL/L (21-32)
[2019-12-05 04:16] LABS: CREATININE SERUM 0.72 MG/DL (0.60-1.30); GFR ESTIMATED > 60; PHOSPHORUS 2.6 MG/DL (2.3-4.7)
[2019-12-05 04:17] LABS: BUN/CREATININE RATIO 19
[2019-12-05 04:18] LABS: MAGNESIUM 1.9 MG/DL (1.6-2.4)
--- NOTE | 2019-12-05 05:17 | Diagnostic Imaging Report ---
Indication: Atrial fibrillation Portable chest 3:29 AM Heart size and pulmonary vascularity are within normal limits. There is slight increased density in the right lung base that could be some infiltrate or atelectasis. Left lung is clear. There is no effusion or pneumothorax. IMPRESSION: Questionable right basilar infiltrate. Follow-up recommended. Dictated by: Dictated on workstation # [id number]
[2019-12-05] MEDS ORDERED: proPOfol 200 MG/20 ML (DIPRIVAN) VIAL IV ONE (08:05)
[2019-12-05] MEDS ORDERED: LIDOCAINE 2% VISCOUS 15 ML UDC ONE (08:05)
[2019-12-05] MEDS ORDERED: MIDAZOLAM 2 MG/2 ML (VERSED) VIAL ONE (08:05)
[2019-12-05] MEDS ORDERED: NS IV 500 ML 500 ML ONE (08:05)
[2019-12-05] MEDS ORDERED: NS IV 1000 ML 1,000 ML IV ONE (08:27)
[2019-12-05] MEDS ORDERED: LIDOCAINE 2% VISCOUS 15 ML UDC PO ONE (08:30)
--- NOTE | 2019-12-05 09:15 | Cardioversion ---
Cardioversion PROCEDURE PHYSICIAN: Danilo Garnica MD DATE OF PROCEDURE: 12/05/19 DIRECT EXTERNAL ELECTRICAL CARDIOVERSION: Indications: Atrial Fibrillation Preoperative diagnoses: Atrial Fibrillation Postoperative diagnosis: Sinus rhythm, Successful Electrical Cardioversion History: 79-year-old lady with atrial fibrillation with rapid ventricular rate. Anesthesia: By Anesthesia services Complications: None Specimen: None Contrast: 0 Flouroscopy: none Procedure Details: The patient was brought the laborer tin can after informed consent was taken, all the risks and complications were explained including the risk of stroke. Electrical cardioversion was carried out with anesthesia support with propofol. 200 joules of synchronized shock was delivered through external patches which promptly restored sinus rhythm. The patient tolerated the procedure well. Conclusions: 1.Successful Cardioversion. 2.Continue oral anticoagulation and rate controlling agent. Danilo Garnica MD, [facility] Cardiac Electrophysiology Ban GARNICA MD Dec 05, 2019 09:15
--- NOTE | 2019-12-05 09:15 | Cardiology Progress Note ---
Cardiology SOAP Progress Note Subjective: Continues to be in atrial fibrillation. Objective: I&O/Vital Signs 12/05/19 12/05/19 12/05/19 12/05/19 05:00 06:00 06:38 07:00 Pulse 80 73 74 66 Resp 19 22 12 B/P (MAP) 135/69 (91) 139/72 (94) 135/65 (88) Pulse Ox 95 94 97 O2 Delivery Nasal Cannula Nasal Cannula Nasal Cannula O2 Flow Rate 2.00 2.00 2.00 12/05/19 12/05/19 12/05/19 12/05/19 07:50 08:00 08:00 09:00 Temp 37.1 Pulse 80 93 Resp 20 18 B/P (MAP) 155/67 (96) 109/63 (78) Pulse Ox 96 96 O2 Delivery Nasal Cannula Nasal Cannula Nasal Cannula O2 Flow Rate 2.00 2.00 2.00 12/05/19 12/05/19 12/05/19 12/05/19 10:00 11:00 11:47 12:00 Pulse 71 74 74 Resp 21 19 19 B/P (MAP) 148/72 (97) 156/97 (116) 156/97 (116) Pulse Ox 95 94 94 O2 Delivery Nasal Cannula Nasal Cannula Nasal Cannula Nasal Cannula O2 Flow Rate 2.00 2.00 2.00 2.00 12/05/19 12/05/19 12/05/19 12/05/19 12:00 12:00 13:00 13:00 Temp 36.7 Pulse 70 70 Resp 18 B/P (MAP) 136/64 (88) Pulse Ox 97 O2 Delivery Nasal Cannula Nasal Cannula O2 Flow Rate 2.00 2.00 12/05/19 12/05/19 12/05/19 12/05/19 14:00 15:00 16:00 16:00 Temp 36.4 Pulse 67 70 76 Resp 18 17 22 B/P (MAP) 141/77 (98) 152/76 (101) 162/89 (113) Pulse Ox 93 95 94 O2 Delivery Nasal Cannula Nasal Cannula Nasal Cannula O2 Flow Rate 2.00 2.00 2.00 12/05/19 16:15 Pulse Ox 93 O2 Delivery Nasal Cannula O2 Flow Rate 2.00 12/05/19 00:00 Intake Total 734 ml Output Total 2475 ml Balance -1741 ml Weight (Pounds): 157 Weight (Ounces): 0.9 Weight (Calculated Kilograms): [id number] Constitutional: appears stated age, AAO x 3; No apparent distress; well- developed, well-nourished Respiratory: chest is bilaterally symmetric, lungs clear to auscultation Cardiovascular: irregularly irregular, S1 and S2; No diastolic murmur, No systolic murmur Gastrointestional: soft, audible bowel sounds; No spleenomegaly Extremities: normal range of motion, non-tender, normal inspection; No cl ubbing, No cyanosis; no lower extremity edema bilateral; No significant edema Neurologic/Psychiatric: no motor/sensory deficits, alert, normal mood/affect, oriented x 3, power is 5/5 both on sides Skin: normal color, warm/dry; No rash, No ulcerations Results/Procedures: Labs Laboratory Tests 12/05/19 03:02: White Blood Count 10.3, Red Blood Count 4.04L, Hemoglobin 12.3, Hematocrit 37, Mean Corpuscular Volume 91, Mean Corpuscular Hemoglobin 30, Mean Corpuscular Hemoglobin Concent 33, Red Cell Distribution Width 12.6, Platelet Count 222, Mean Platelet Volume 9.7, Neutrophils (%) (Auto) 81H, Lymphocytes (%) (Auto) 12, Monocytes (%) (Auto) 6, Eosinophils (%) (Auto) 0, Basophils (%) (Auto) 0, Neutrophils # (Auto) 8.3H, Lymphocytes # (Auto) 1.3, Monocytes # (Auto) 0.7, Eosinophils # (Auto) 0.0, Basophils # (Auto) 0.0, Sodium Level 135, Potassium Level 3.0L, Chloride Level 97L, Carbon Dioxide Level 25, Anion Gap 13, Blood Urea Nitrogen 14, Creatinine 0.72, Estimat Glomerular Filtration Rate > 60, BUN/Creatinine Ratio 19, Glucose Level 97, Calcium Level 8.7, Phosphorus Level 2.6, Magnesium Level 1.9 Microbiology 12/04/19 Urine Culture - Final, Complete NO GROWTH 12/04/19 MRSA Screen - Final, Complete MRSA not isolated A/P: Assessment/Dx: Atrial fibrillation with rapid ventricular rate, Hypertension Plan: Continue IV Cardizem. Change Lovenox to Eliquis 5 mg twice a day. CHADSVASC score of 4 due to age over 75, female gender, hypertension. Therefore oral anticoagulation is superior to aspirin alone. I also discussed at length with the patient and recommended transesophageal echocardiogram assisted cardioversion tomorrow morning. I discussed the risk of esophageal damage of 1/500 and risk of stroke of 1 percent. Patient understands the risk and would like to proceed with transesophageal echocardiogram assisted cardioversion. Continue amlodipine for blood pressure control. We'll also recommend an echocardiogram. Thank you for your consultation. Please call me if you have any questions. Danilo Garnica MD, FACP, FACC, FSCAI, FHRS, CCDS Interventional Cardiology Cardiac Electrophysiology Vascular Medicine and Endovascular Interventions Ban GARNICA MD Dec 05, 2019 09:15
--- NOTE | 2019-12-05 09:22 | Anesthesia-General Post-Op ---
MAC Patient Condition Mental Status/LOC: Same as Preop Cardiovascular: Satisfactory Nausea/Vomiting: Absent Respiratory: Satisfactory Pain: Controlled Complications: Absent Post Op Complications Complications None Follow Up Care/Instructions Patient Instructions None needed. Anesthesiology Discharge Order Discharge Order Patient is doing well, no complaints, stable vital signs, no apparent adverse anesthesia problems. No complications reported per nursing. ANGÉLICA CAREY CRNA Dec 05, 2019 09:22
--- NOTE | 2019-12-05 09:30 | NUR ---
TIMELINE 08 - ANESTHESIA AT BEDSIDE. CONSENT SIGNED. 0834- SIGNAL REPAIRER AT BESIDE. LIDOCAINE GIVEN. 0858- DR CARLSON AT BEDSIDE. ANESTHESIA ADMINISTERED MEDICATION. TIANNA STARTED. 908- SHOCK DELIVERED. PT IN SR. 14- EKG OBTAINED TO CONFIRM NSR. EKG PLACED ON CHART. 919- DR CARLSON GAVE VERBAL ORDERS FOR ORAL AMIO AND CARDIZEM. DC IV DRIPS 2 HOURS AFTER ADMINISTERING MEDICATIONS. THIS NURSE AT BEDSIDE TO MONITOR PT. Addendum: 12/05/19 at 1829 by GET FOFANA RN TIMELINE 0820 - ANESTHESIA AT BEDSIDE. CONSENT SIGNED. 0834- SIGNAL REPAIRER AT BESIDE. LIDOCAINE GIVEN. 857- DR CARLSON AT BEDSIDE. ANESTHESIA ADMINISTERED MEDICATION. TIANNA STARTED. 908- SHOCK DELIVERED AT [address] CARLSON. PT IN SR. 0914- EKG OBTAINED TO CONFIRM NSR. EKG PLACED ON CHART. 919- DR CARLSON GAVE VERBAL ORDERS FOR ORAL AMIO AND CARDIZEM. DC IV DRIPS 2 HOURS AFTER ADMINISTERING MEDICATIONS. THIS NURSE AT BEDSIDE TO MONITOR PT. THIS NURSE WASTE 9ML OF PROPOFOL WITH DALE STAPLETON.
[2019-12-05] MEDS: AMIODARONE 200 MG (CORDARONE) TAB PO SCH (10:10)
[2019-12-05] MEDS: dilTIAZem120 MG (CARDIZEM CD) CAP PO SCH (10:10)
[2019-12-05] MEDS: ASPIRIN E.C. 81 MG (ECOTRIN) TAB PO SCH (10:10)
[2019-12-05] MEDS: APIXABAN 5 MG (ELIQUIS) TABLET PO SCH ×2 (10:10→21:21)
--- NOTE | 2019-12-05 10:55 | NUR ---
Pastoral care visit.
[2019-12-05] MEDS: KCL 20 MEQ TAB (K-DUR) PO SCH ×3 (12:21→16:59)
--- NOTE | 2019-12-05 16:58 | Progress Note ---
Subjective Date Seen by a Provider: Dec 05, 2019 Time Seen by a Provider: 12:30 Subjective/Events-last exam Fwup Atrial Fibrillation with RVR, Acute Diastolic Congestive Heart Failure, Hypetension. Had cardioversion this morning. Not as short of air. Objective Exam Vital Signs Date Time Temp Pulse Resp B/P (MAP) Pulse Ox O2 Delivery O2 Flow Rate FiO2 12/05/19 16:15 93 Nasal Cannula 2.00 12/05/19 16:00 36.4 12/05/19 16:00 76 22 162/89 (113) 94 Nasal Cannula 2.00 12/05/19 15:00 70 17 152/76 (101) 95 Nasal Cannula 2.00 12/05/19 14:00 67 18 141/77 (98) 93 Nasal Cannula 2.00 12/05/19 13:00 70 12/05/19 13:00 70 18 136/64 (88) 97 Nasal Cannula 2.00 12/05/19 12:00 Nasal Cannula 2.00 12/05/19 12:00 36.7 12/05/19 12:00 74 19 156/97 (116) 94 Nasal Cannula 2.00 12/05/19 11:47 Nasal Cannula 2.00 12/05/19 11:00 74 19 156/97 (116) 94 Nasal Cannula 2.00 12/05/19 10:00 71 21 148/72 (97) 95 Nasal Cannula 2.00 12/05/19 09:00 93 18 109/63 (78) 96 Nasal Cannula 2.00 12/05/19 08:00 37.1 12/05/19 08:00 80 20 155/67 (96) 96 Nasal Cannula 2.00 12/05/19 07:50 Nasal Cannula 2.00 12/05/19 07:00 66 12 135/65 (88) 97 Nasal Cannula 2.00 12/05/19 06:38 74 12/05/19 06:00 73 22 139/72 (94) 94 Nasal Cannula 2.00 12/05/19 05:00 80 19 135/69 (91) 95 Nasal Cannula 2.00 12/05/19 04:00 74 13 124/71 (88) 96 Nasal Cannula 2.00 12/05/19 04:00 Nasal Cannula 2.00 12/05/19 03:17 36.8 12/05/19 03:00 82 17 133/84 (100) 95 Nasal Cannula 2.00 12/05/19 02:00 74 12 148/104 (119) 97 Nasal Cannula 2.00 12/05/19 01:00 65 12/05/19 01:00 65 14 116/78 (91) 96 Nasal Cannula 2.00 12/05/19 00:00 81 21 146/102 (117) 96 Nasal Cannula 2.00 12/05/19 00:00 Nasal Cannula 2.00 12/04/19 23:39 36.5 12/04/19 23:00 73 14 113/81 (92) 97 Nasal Cannula 2.00 12/04/19 22:00 92 29 113/73 (86) 95 Nasal Cannula 2.00 12/04/19 21:00 78 15 126/67 (86) 98 Nasal Cannula 2.00 12/04/19 20:00 78 17 139/82 (101) 95 Nasal Cannula 2.00 12/04/19 20:00 Nasal Cannula 2.00 12/04/19 19:39 37.2 12/04/19 19:00 87 12/04/19 19:00 87 17 121/72 (88) 95 Nasal Cannula 2.00 12/04/19 18:00 85 27 122/67 (85) 89 Nasal Cannula 2.00 12/04/19 17:00 84 22 141/79 (99) 96 Nasal Cannula 2.00 I & O 12/05/19 07:00 Intake Total 759 ml Output Total 3025 ml Balance -2266 ml Capillary Refill : Less Than 3 Seconds General Appearance: Mild Distress Neck: Supple Respiratory: Lungs Clear Cardiovascular: Regular Rate, Rhythm, Systolic Murmur, Gallop/S4 Gastrointestinal: normal bowel sounds, non tender, soft Extremity: Non Tender, No Calf Tenderness, No Pedal Edema Neurologic/Psychiatric: Alert, Oriented x3 Skin: Warm/Dry Results Lab Laboratory Tests 12/05/19 03:02: White Blood Count 10.3, Red Blood Count 4.04L, Hemoglobin 12.3, Hematocrit 37, Mean Corpuscular Volume 91, Mean Corpuscular Hemoglobin 30, Mean Corpuscular Hemoglobin Concent 33, Red Cell Distribution Width 12.6, Platelet Count 222, Mean Platelet Volume 9.7, Neutrophils (%) (Auto) 81H, Lymphocytes (%) (Auto) 12, Monocytes (%) (Auto) 6, Eosinophils (%) (Auto) 0, Basophils (%) (Auto) 0, Neutrophils # (Auto) 8.3H, Lymphocytes # (Auto) 1.3, Monocytes # (Auto) 0.7, Eosinophils # (Auto) 0.0, Basophils # (Auto) 0.0, Sodium Level 135, Potassium Level 3.0L, Chloride Level 97L, Carbon Dioxide Level 25, Anion Gap 13, Blood Urea Nitrogen 14, Creatinine 0.72, Estimat Glomerular Filtration Rate > 60, BUN/Creatinine Ratio 19, Glucose Level 97, Calcium Level 8.7, Phosphorus Level 2.6, Magnesium Level 1.9 Microbiology 12/04/19 Urine Culture - Final, Complete NO GROWTH 12/04/19 MRSA Screen - Final, Complete MRSA not isolated Assessment/Plan Assessment/Plan Assess & Plan/Chief Complaint 1. Atrial Fibrillation with RVR--S/P Cardioversion this morning--back in NSR 2. Hypertension--stable 3. Acute Diastolic CHF--dyspnea much improved 4. Hypokalemia--on K replacement protocol 5. Weakness--may need to consider rehab if qualifies for strengthening--will start PT/OT tomorrow Clinical Quality Measures Admission Status Admission Dx 1. Atrial Fibrillation with RVR--on Cardizem drip and loaded with amiodarone, starte on lovenox, cardiology consulted 2. Acute Diastolic CHF--given IV lasix in ER, repeat now x1 3. Hypertension--will resume oral meds once weaned from Cardizem drip 4. Hypothryoidism--update lab 5. Anxiety--xanax prn DVT/VTE Risk/Contraindication: RFS Level Per Nursing on Admit: 4+=Very High GENA GROSSMAN DO Dec 05, 2019 16:58
[2019-12-05] MEDS ORDERED: ALPRAZolam 0.25 MG (XANAX) TAB PO ONE (22:45)
--- NOTE | 2019-12-05 23:00 | NUR ---
2300-SPOKE TO EICU DR. FUENTES AND INFORMED HER THAT PTS HAVING A HARD TIME BREATHING. PT USING ACCESSORY MUSCLES, LUNGS WHEEZY, RESPIRATIONS IN THE 30's AND PT VERY ANXIOUS. INFORMED DR THAT XANAX WAS ALREADY GIVEN BUT I VOICED MY CONCERN THAT I DIDNT THINK IT WAS ALL ANXIETY. 2313-ORDERS PLACED FOR BREATHING TX. RT AT BEDSIDE TO GIVE TREATMENT. 2345-PT RESTING COMFORTABLY AT THIS TIME. PT STATES "I FEEL MUCH BETTER". WILL CONTINUE TO MONITOR.
[2019-12-05] MEDS ORDERED: RT-ALBUTEROL/IPRATROPIUM 3 ML (DUONEB) VIAL INH ONE (23:15)
[2019-12-06] VITALS (19 sets, daily range): BP systolic 109–165; BP diastolic 61–91
[2019-12-06 03:57] LABS: BASOPHILS % (AUTO) 0 % (0-10); EOSINOPHILS % (AUTO) 0 % (0-10); HEMATOCRIT 42 % (35-52); HEMOGLOBIN 13.7 G/DL (11.5-16.0); LYMPHOCYTES # (AUTO) 0.8 X 10^3 (1.0-4.0); LYMPHOCYTES % (AUTO) 7 % (12-44); MEAN CORPUSCULAR HEMOGLOBIN 30 PG (25-34); MEAN CORPUSCULAR HGB CONC 33 G/DL (32-36); MEAN CORPUSCULAR VOLUME 91 FL (80-99); MEAN PLATELET VOLUME 9.6 FL (7.4-10.4); MONOCYTES # (AUTO) 0.5 X 10^3 (0.0-1.0); MONOCYTES % (AUTO) 5 % (0-12); NEUTROPHILS # (AUTO) 9.8 X 10^3 (1.8-7.8); NEUTROPHILS % (AUTO) 88 % (42-75); PLATELET COUNT 229 10^3/uL (130-400); RED CELL DISTRIBUTION WIDTH 13.1 % (10.0-14.5); WHITE BLOOD COUNT 11.2 10^3/uL (4.3-11.0)
[2019-12-06 04:08] LABS: CHLORIDE 100 MMOL/L (98-107); POTASSIUM 5.1 MMOL/L (3.6-5.0); SODIUM 134 MMOL/L (135-145)
[2019-12-06 04:09] LABS: CALCIUM 9.5 MG/DL (8.5-10.1)
[2019-12-06 04:10] LABS: GLUCOSE 98 MG/DL (70-105)
[2019-12-06 04:11] LABS: CARBON DIOXIDE 23 MMOL/L (21-32)
[2019-12-06 04:13] LABS: PHOSPHORUS 2.3 MG/DL (2.3-4.7)
[2019-12-06 04:14] LABS: CREATININE SERUM 0.77 MG/DL (0.60-1.30); GFR ESTIMATED > 60
[2019-12-06 04:15] LABS: BUN/CREATININE RATIO 22
[2019-12-06 04:17] LABS: MAGNESIUM 2.4 MG/DL (1.6-2.4)
[2019-12-06] MEDS: MAGNESIUM 1 GM/100 ML IVPB 100 ML IV SCH (06:59)
[2019-12-06] MEDS: KCL 20 MEQ TAB (K-DUR) PO SCH (06:59)
[2019-12-06] MEDS: POTASSIUM CL 10MEQ/50ML IVPB 50 ML IV SCH (06:59)
--- NOTE | 2019-12-06 08:06 | Diagnostic Imaging Report ---
INDICATION: Atrial fibrillation Upright portable chest shows heart size and vascularity to be within normal limits. There is mild prominence of the interstitium. There is appearance of developing infiltrate in the right lower lobe with slightly more opacification compared to the 12/05/2019 study. There are minimal effusions. IMPRESSION: Increasing right lower lobe infiltrate since the prior exam. Recommend continued follow-up. Dictated by: Dictated on workstation # [id number]
[2019-12-06] MEDS: dilTIAZem120 MG (CARDIZEM CD) CAP PO SCH (08:23)
[2019-12-06] MEDS: APIXABAN 5 MG (ELIQUIS) TABLET PO SCH ×2 (08:23→20:51)
[2019-12-06] MEDS: AMIODARONE 200 MG (CORDARONE) TAB PO SCH (08:23)
[2019-12-06] MEDS: ASPIRIN E.C. 81 MG (ECOTRIN) TAB PO SCH (08:23)
--- NOTE | 2019-12-06 12:49 | Cardiology Progress Note ---
Cardiology SOAP Progress Note Subjective: No cardiac complaints this morning. Some shortness of breath last night. Objective: I&O/Vital Signs 12/06/19 12/06/19 12/06/19 12/06/19 01:00 01:00 02:00 03:00 Pulse 60 60 70 71 Resp 12 14 25 B/P (MAP) 109/62 (78) 150/76 (100) 137/85 (102) Pulse Ox 99 98 100 O2 Delivery Nasal Cannula Nasal Cannula Nasal Cannula O2 Flow Rate 4.00 4.00 4.00 12/06/19 12/06/19 12/06/19 12/06/19 03:52 03:56 04:00 05:00 Temp 36.9 Pulse 82 74 Resp 22 16 B/P (MAP) 165/83 (110) 138/91 (107) Pulse Ox 96 100 O2 Delivery Nasal Cannula Nasal Cannula Nasal Cannula O2 Flow Rate 4.00 4.00 4.00 12/06/19 12/06/19 12/06/19 12/06/19 06:00 07:00 07:11 08:00 Temp 37.0 Pulse 69 80 75 Resp 11 15 26 B/P (MAP) 149/86 (107) 147/78 (101) 122/65 (84) Pulse Ox 98 99 89 O2 Delivery Nasal Cannula Nasal Cannula Nasal Cannula Nasal Cannula O2 Flow Rate 4.00 4.00 4.00 4.00 12/06/19 12/06/19 12/06/19 12/06/19 08:00 09:00 11:00 11:04 Pulse 66 Resp 17 B/P (MAP) 124/70 (88) Pulse Ox 100 99 O2 Delivery Nasal Cannula Nasal Cannula Nasal Cannula Nasal Cannula O2 Flow Rate 4.00 4.00 3.00 4.00 12/06/19 11:18 Temp 37.1 12/06/19 00:00 Intake Total 1100 ml Output Total 400 ml Balance 700 ml Weight (Pounds): 157 Weight (Ounces): 0.9 Weight (Calculated Kilograms): 71.881296 Constitutional: appears stated age, AAO x 3; No apparent distress; well- developed, well-nourished Respiratory: chest is bilaterally symmetric, lungs clear to auscultation Cardiovascular: regular rate-rhythm, S1 and S2; No diastolic murmur, No systolic murmur Gastrointestional: soft, audible bowel sounds; No spleenomegaly Extremities: normal range of motion, non-tender, normal inspection; No clubbing, No cyanosis; no lower extremity edema bilateral; No significant edema Neurologic/Psychiatric: no motor/sensory deficits, alert, normal mood/affect, oriented x 3, power is 5/5 both on sides Skin: normal color, warm/dry; No rash, No ulcerations Results/Procedures: Labs Laboratory Tests 12/05/19 21:35: Potassium Level 5.0 12/06/19 03:19: Potassium Level 5.1H, White Blood Count 11.2H, Red Blood Count 4.56, Hemoglobin 13.7, Hematocrit 42, Mean Corpuscular Volume 91, Mean Corpuscular Hemoglobin 30, Mean Corpuscular Hemoglobin Concent 33, Red Cell Distribution Width 13.1, Platelet Count 229, Mean Platelet Volume 9.6, Neutrophils (%) (Auto) 88H, Lymphocytes (%) (Auto) 7L, Monocytes (%) (Auto) 5, Eosinophils (%) (Auto) 0, Basophils (%) (Auto) 0, Neutrophils # (Auto) 9.8H, Lymphocytes # (Auto) 0.8L, Monocytes # (Auto) 0.5, Eosinophils # (Auto) 0.0, Basophils # (Auto) 0.0, Sodium Level 134L, Chloride Level 100, Carbon Dioxide Level 23, Anion Gap 11, Blood Urea Nitrogen 17, Creatinine 0.77, Estimat Glomerular Filtration Rate > 60, BUN/Creatinine Ratio 22, Glucose Level 98, Calcium Level 9.5, Phosphorus Level 2.3, Magnesium Level 2.4 Microbiology 12/04/19 Urine Culture - Final, Complete NO GROWTH 12/04/19 MRSA Screen - Final, Complete MRSA not isolated A/P: Assessment/Dx: Atrial fibrillation with rapid ventricular rate, Hypertension Plan: Persistent atrial fibrillation: Status post successful transesophageal echocardiogram assisted cardioversion. Cardizem and Eliquis 5 mg twice a day. CHADSVASC score of 4 due to age over 75, female gender, hypertension. Therefore oral anticoagulation is superior to aspirin alone. Continue amlodipine for blood pressure control. Patient will like to switch cardiologists. I'm happy to see her as an outpatient in 2-3 weeks. Thank you for your consultation. Please call me if you have any questions. Danilo Garnica MD, FACP, FACC, FSCAI, FHRS, CCDS Interventional Cardiology Cardiac Electrophysiology Vascular Medicine and Endovascular Interventions Ban GARNICA MD Dec 06, 2019 12:49
--- NOTE | 2019-12-06 13:57 | Physical Therapy Evaluation ---
PT Evaluation-General Medical Diagnosis Admission Date Dec 03, 2019 at 22:10 Medical Diagnosis: AFib RVR Onset Date: Dec 03, 2019 Therapy Diagnosis Therapy Diagnosis: weakness Height/Weight Height (Feet): 5 Height (Inches): 3.50 Weight (Pounds): 157 Weight (Ounces): 0.9 Precautions Precautions/Isolations: Fall Prevention, Standard Precautions Weight Bear Status Right Lower Extremity: Right Full Weight Bearing Left Lower Extremity: Left Full Weight Bearing Referral Reason for Referral: Evaluation/Treatment Medical History Pertinent Medical History: Atrial Fib, HTN Current History Pt admitted from ED, due to increasing SOA following weaning from antiarrhythmic medications. Reviewed History: Yes Social History Home: Single Level Current Living Status: Alone Entry Into Home: Stairs With Railing (a few stairs into house from garage ) Prior Prior Level of Function SCALE: Activities may be completed with or without assistive devices. 3-[place] completes the activity by him/herself with no assistance from a helper. 5-Set-up or Clean-up Assistance-helper sets up or cleans up; patient completes activity. Savage assists only prior to or following the activity. 4-Supervision or Touching Assistance-helper provides verbal cues and/or touching/steadying and/or contact guard assistance as patient completes activity. Assistance may be provided throughout the activity or intermittently. 3-Partial/Moderate Assistance-helper does LESS THAN HALF the effort. Savage lifts, holds or supports trunk or limbs, but provides less than half the effort. 2-Substantial/Maximal Assistance-helper does MORE THAN HALF the effort. Savage lifts or holds trunk or limbs and provides more than half the effort. 9-Hgvdjiksh-ipvtqj does ALL the effort. Patient does none of the effort to complete the activity. Or, the assistance of 2 or more helpers is required for the patient to complete the activity. If activity was not attempted, code reason: 7-Patient Refused. 9-Not Applicable-not attempted and the patient did not perform the activity before the current illness, exacerbation or injury. 10-Not Attempted due to Environmental Limitations-(lack of equipment, weather restraints, etc.). 88-Not Attempted due to Medical Conditions or Safety Concerns. Bed Mobility: 6 Transfers (B,C,W/C): 6 Gait: 6 Stairs: 6 Indoor Mobility (Ambulation): Independent Stairs: Independent Pt lives home alone and was previously independent with everything, Pt denies use of assistive device for ambulation PT Evaluation-Current Subjective Pt presents sitting EOB upon arrival to room, agreeable to work with therapy at this time. Pt has no complaints of pain Pt/Family Goals return home Objective Patient Orientation: Person, Place, Time, Situation ROM/Strength ROM Lower Extremities grossly WFL Strength Lower Extremities grossly 3/5 with functional mobility Integumentary/Posture Integumentary refer to nursing notes Neuromuscular (Tone, Coordination, Reflexes) grossly WFL Sensory Sensation Right Lower Extremit: Intact Sensation Left Lower Extremity: Intact Transfers Sit to Lying (QC): 5 Sit to Stand (QC): 4 Toilet Transfer (QC): 3 (Need assistance to stand from low toilet in ICU room) Pt with SBA for sit to stand from EOB. When standing from low ICU toilet, pt requires mod A to achieve standing position. Gait Does the Patient Walk?: Yes Mode of Locomotion: Walk Anticipated Mode of Locomotion: Walk Walk 10 feet (QC): 4 Distance: 5' x2 Gait Assistive Device: FWW Comments/Gait Description Pt able to initiate steps without LOB for short distances, but becomes anxious about being SOA when anticipating ambulating longer distances. Pt became teary and states that she is "just pooped" after not being able to sleep and would like to return to bed to rest. Balance Sitting Static: Normal Sitting Dynamic: Normal Standing Static: Normal Assessment/Needs Pt is a 79 year old female with limitations in strength, activity tolerance and anxiety which impact her functional mobility. Pt would benefit from skilled PT to address above mentioned limitations to ensure safety upon return to her home, where she lives alone. Rehab Potential: Good PT Usp Goals Limousine Rental Clerk Goals PT Limousine Rental Clerk Goals Time Frame: Dec 20, 2019 Sit to Stand (QC): 6 Chair/Xkj-sk-Rkepi Xfer(QC): 6 Does the Patient Walk: Yes Walk 10 feet (QC): 6 Walk 50ft with 2 Turns (QC): 6 Walk 150 ft (QC): 6 4 Steps (QC): 6 PT Plan Problem List Problem List: Activity Tolerance, Functional Strength, Safety, Balance, Gait, Transfer Treatment/Plan Treatment Plan: Continue Plan of Care Treatment Plan: Bed Mobility, Education, Functional Activity Samy, Functional Strength, Gait, Safety, Therapeutic Exercise, Transfers Treatment Duration: Dec 20, 2019 Frequency: 5 times per week Estimated Hrs Per Day: .25 hour per day Patient and/or Family Agrees t: Yes Safety Risks/Education Patient Education: Gait Training Teaching Recipient: Patient Teaching Methods: Discussion Response to Teaching: Reinforcement Needed Discharge Recommendations Target Placement Pt would benefit from ARU to return to PLOF in order to return home alone, safely. Time/GCodes Time In: 1340 Time Out: 1355 Total Billed Treatment 1 visit 1 EVmodC x 15 min SAMUEL POST PT Dec 06, 2019 13:57
--- NOTE | 2019-12-06 14:40 | NUR ---
"RD ASSESSMENT PMHx: HTN; scoliosis; hypothyroidism PT INTERACTION: Pt was awake and pleasant during nutrition assessment. Pt states current appetite is poor and has been this way since admission. Note avg PO intake of 58% of meals, per chart review. Pt states following a low-fat/low-Na diet at home, and has no issues with chewing/swallowing food. Pt states no recent issues with nausea or vomiting. Pt states some recent issues with constipation. Note last BM was 12/04, and pt not currently on bowel regimen per chart review. Pt states recent 4-5# wt gain, but unsure of timeframe. Note unable to determine recent wt hx, per chart review. ABNORMAL NUTRITION-RELATED LAB VALUES LOW: Na 134; HIGH: K 5.1 Est. kcal needs: 0208-4545 kcal | 25-30 kcal/kg Est. Pro needs: 50-63 g Pro | 0.8-1.0 g Pro/kg PES STATEMENT: Inadequate oral intake (NI-2.1) related to loss of appetite | constipation as evidenced by pt interview | avg PO intake 58% of meals INTERVENTION: Continue with current diet order of Heart Healthy diet. Pt may benefit from nutrition supplementation if PO intake declines. Will continue to follow and reassess as pt needs, intake, and status change. MONITOR/EVALUATE: PO Intake; Plan of Care; Hydration Status; Weight Status; Lab Values Jeanine Batista, MS, RD, LD"
--- NOTE | 2019-12-06 14:53 | NUR ---
PATIENT DID NOT QUALIFY FOR HOME O2 AT THIS TIME. PATIENT UNABLE TO PERFORM WALK TEST AT THIS TIME. O2 SATURATION WITHOUT O2 SITTING WAS 96% Addendum: 12/06/19 at 1455 by OPHELIA KIM RT Amended: Links added.
--- NOTE | 2019-12-06 15:26 | NUR ---
IRF Evaluation Determination: Accepted Chart review complete and findings discussed with Dr. Benjamin - patient accepted. Will meet with patient to discuss details related to rehabilitation program. CM/SS notified. Thank you for this referral.
--- NOTE | 2019-12-06 16:15 | NUR ---
REPORT CALLED TO REMY STAPLETON ON FOURTH FLOOR. PT TAKEN DOWN VIA WHEELCHAIR WITH ALL BELONGINGS.
--- NOTE | 2019-12-06 16:30 | NUR ---
this RN took over patient care at this. patient alert and orientated. sitting in recliner in room. verbalizes no addition needs at this time
[2019-12-07 00:45] VITALS: BP 147/74
[2019-12-07 04:02] VITALS: BP 132/70
[2019-12-07 05:53] LABS: BASOPHILS % (AUTO) 0 % (0-10); EOSINOPHILS # (AUTO) 0.2 10^3/uL (0.0-0.3); EOSINOPHILS % (AUTO) 2 % (0-10); HEMATOCRIT 40 % (35-52); HEMOGLOBIN 13.1 G/DL (11.5-16.0); LYMPHOCYTES # (AUTO) 1.1 X 10^3 (1.0-4.0); LYMPHOCYTES % (AUTO) 11 % (12-44); MEAN CORPUSCULAR HEMOGLOBIN 30 PG (25-34); MEAN CORPUSCULAR HGB CONC 33 G/DL (32-36); MEAN CORPUSCULAR VOLUME 91 FL (80-99); MEAN PLATELET VOLUME 9.4 FL (7.4-10.4); MONOCYTES # (AUTO) 0.7 X 10^3 (0.0-1.0); MONOCYTES % (AUTO) 7 % (0-12); NEUTROPHILS % (AUTO) 80 % (42-75); PLATELET COUNT 231 10^3/uL (130-400); RED CELL DISTRIBUTION WIDTH 13.3 % (10.0-14.5)
[2019-12-07 06:13] LABS: BUN/CREATININE RATIO 21; CALCIUM 8.7 MG/DL (8.5-10.1); CARBON DIOXIDE 22 MMOL/L (21-32); CHLORIDE 103 MMOL/L (98-107); CREATININE SERUM 0.75 MG/DL (0.60-1.30); GFR ESTIMATED > 60; GLUCOSE 92 MG/DL (70-105); PHOSPHORUS 2.4 MG/DL (2.3-4.7); POTASSIUM 4.1 MMOL/L (3.6-5.0); SODIUM 137 MMOL/L (135-145)
[2019-12-07] MEDS: MAGNESIUM 1 GM/100 ML IVPB 100 ML IV SCH (06:19)
[2019-12-07] MEDS: POTASSIUM CL 10MEQ/50ML IVPB 50 ML IV SCH (06:19)
[2019-12-07] MEDS: KCL 20 MEQ TAB (K-DUR) PO SCH (06:19)
[2019-12-07 08:00] VITALS: BP 118/71
[2019-12-07] MEDS: AMIODARONE 200 MG (CORDARONE) TAB PO SCH (09:13)
[2019-12-07] MEDS: APIXABAN 5 MG (ELIQUIS) TABLET PO SCH (09:13)
[2019-12-07] MEDS: ASPIRIN E.C. 81 MG (ECOTRIN) TAB PO SCH (09:13)
[2019-12-07] MEDS: dilTIAZem120 MG (CARDIZEM CD) CAP PO SCH (09:13)
--- NOTE | 2019-12-07 10:30 | Cardiology Progress Note ---
Cardiology SOAP Progress Note Subjective: No cardiac complaints. Denies shortness of breath, palpitations or chest pain. Objective: I&O/Vital Signs 12/07/19 12/07/19 12/07/19 12/07/19 00:45 01:00 04:02 07:00 Temp 37.2 36.6 Pulse 81 80 82 62 Resp 20 20 B/P (MAP) 147/74 (98) 132/70 (90) Pulse Ox 92 91 O2 Delivery Room Air Room Air 12/07/19 12/07/19 08:00 09:00 Temp 36.6 Pulse 77 Resp 20 B/P (MAP) 118/71 (87) Pulse Ox 93 93 O2 Delivery Room Air Room Air O2 Flow Rate 4.00 12/07/19 00:00 Intake Total 865 ml Output Total 200 ml Balance 665 ml Weight (Pounds): 157 Weight (Ounces): 0.9 Weight (Calculated Kilograms): 71.428854 Constitutional: appears stated age, AAO x 3; No apparent distress; well- developed, well-nourished Respiratory: chest is bilaterally symmetric, lungs clear to auscultation Cardiovascular: regular rate-rhythm, S1 and S2; No diastolic murmur, No systoli c murmur Gastrointestional: soft, audible bowel sounds; No spleenomegaly Extremities: normal range of motion, non-tender, normal inspection; No clubbing, No cyanosis; no lower extremity edema bilateral; No significant edema Neurologic/Psychiatric: no motor/sensory deficits, alert, normal mood/affect, oriented x 3, power is 5/5 both on sides Skin: normal color, warm/dry; No rash, No ulcerations Results/Procedures: Labs Laboratory Tests 12/07/19 05:35: White Blood Count 10.0, Red Blood Count 4.32L, Hemoglobin 13.1, Hematocrit 40, Mean Corpuscular Volume 91, Mean Corpuscular Hemoglobin 30, Mean Corpuscular Hemoglobin Concent 33, Red Cell Distribution Width 13.3, Platelet Count 231, Mean Platelet Volume 9.4, Neutrophils (%) (Auto) 80H, Lymphocytes (%) (Auto) 11L , Monocytes (%) (Auto) 7, Eosinophils (%) (Auto) 2, Basophils (%) (Auto) 0, Neutrophils # (Auto) 8.0H, Lymphocytes # (Auto) 1.1, Monocytes # (Auto) 0.7, Eosinophils # (Auto) 0.2, Basophils # (Auto) 0.0, Sodium Level 137, Potassium Level 4.1, Chloride Level 103, Carbon Dioxide Level 22, Anion Gap 12, Blood Urea Nitrogen 16, Creatinine 0.75, Estimat Glomerular Filtration Rate > 60, BUN/Creatinine Ratio 21, Glucose Level 92, Calcium Level 8.7, Phosphorus Level 2.4, Magnesium Level 2.0 Microbiology 12/04/19 Urine Culture - Final, Complete NO GROWTH 12/04/19 MRSA Screen - Final, Complete MRSA not isolated A/P: Assessment/Dx: Atrial fibrillation with rapid ventricular rate, Hypertension, Moderate to severe mitral regurgitation. Plan: Persistent atrial fibrillation: Status post successful transesophageal echocardiogram assisted cardioversion. Cardizem and Eliquis 5 mg twice a day. CHADSVASC score of 4 due to age over 75, female gender, hypertension. Therefore oral anticoagulation is superior to aspirin alone. Continue amlodipine for blood pressure control. Moderate to severe mitral regurgitation on transesophageal echocardiogram. Mild to moderate enlargement of the left atrium. However patient does not have significant shortness of breath. Therefore we will follow clinically. Patient will like to switch cardiologists. I'm happy to see her as an outpatient in 2-3 weeks. Thank you for your consultation. Please call me if you have any questions. Danilo Garnica MD, FACP, FACC, FSCAI, FHRS, CCDS Interventional Cardiology Cardiac Electrophysiology Vascular Medicine and Endovascular Interventions Ban GARNICA MD Dec 07, 2019 10:30
--- NOTE | 2019-12-07 10:50 | Progress Note ---
Subjective Date Seen by a Provider: Dec 06, 2019 Time Seen by a Provider: 12:30 Subjective/Events-last exam Fwup Atrial Fibrillation with RVR, Acute Diastolic Congestive Heart Failure, Hypetension. Still in NSR but very weak. Objective Exam Vital Signs Date Time Temp Pulse Resp B/P (MAP) Pulse Ox O2 Delivery O2 Flow Rate FiO2 12/07/19 09:00 93 Room Air 4.00 12/07/19 08:00 36.6 77 20 118/71 (87) 93 Room Air 12/07/19 07:00 62 12/07/19 04:02 36.6 82 20 132/70 (90) 91 Room Air 12/07/19 01:00 80 12/07/19 00:45 37.2 81 20 147/74 (98) 92 Room Air 12/06/19 20:01 37.4 78 18 122/65 (84) 95 Room Air 12/06/19 20:00 Nasal Cannula 4.00 12/06/19 19:00 88 12/06/19 16:40 37.0 83 18 150/68 (95) 91 Room Air 12/06/19 16:00 37.2 12/06/19 16:00 70 15 127/72 (90) 94 Room Air 12/06/19 16:00 96 Room Air 12/06/19 15:00 70 17 150/79 (102) 92 Room Air 12/06/19 14:52 96 0.00 12/06/19 14:00 70 20 130/65 (86) 95 Room Air 12/06/19 13:46 Room Air 12/06/19 13:13 75 12/06/19 13:00 74 19 125/61 (82) 91 Nasal Cannula 3.00 12/06/19 12:00 81 19 141/70 (93) 94 Nasal Cannula 3.00 12/06/19 12:00 95 Nasal Cannula 3.00 12/06/19 11:18 37.1 12/06/19 11:04 Nasal Cannula 4.00 12/06/19 11:00 68 10 148/76 (100) 99 Nasal Cannula 3.00 12/06/19 11:00 99 Nasal Cannula 3.00 I & O 12/07/19 07:00 Intake Total 1515 ml Output Total 450 ml Balance 1065 ml Capillary Refill : Less Than 3 Seconds General Appearance: Mild Distress Neck: Supple Respiratory: Lungs Clear Cardiovascular: Regular Rate, Rhythm, Systolic Murmur Gastrointestinal: normal bowel sounds, non tender, soft Extremity: Non Tender, No Calf Tenderness, No Pedal Edema Skin: Warm/Dry Results Lab Laboratory Tests 12/07/19 05:35: White Blood Count 10.0, Red Blood Count 4.32L, Hemoglobin 13.1, Hematocrit 40, Mean Corpuscular Volume 91, Mean Corpuscular Hemoglobin 30, Mean Corpuscular Hemoglobin Concent 33, Red Cell Distribution Width 13.3, Platelet Count 231, Mean Platelet Volume 9.4, Neutrophils (%) (Auto) 80H, Lymphocytes (%) (Auto) 11L , Monocytes (%) (Auto) 7, Eosinophils (%) (Auto) 2, Basophils (%) (Auto) 0, Neutrophils # (Auto) 8.0H, Lymphocytes # (Auto) 1.1, Monocytes # (Auto) 0.7, Eosinophils # (Auto) 0.2, Basophils # (Auto) 0.0, Sodium Level 137, Potassium Level 4.1, Chloride Level 103, Carbon Dioxide Level 22, Anion Gap 12, Blood Urea Nitrogen 16, Creatinine 0.75, Estimat Glomerular Filtration Rate > 60, BUN/Creatinine Ratio 21, Glucose Level 92, Calcium Level 8.7, Phosphorus Level 2.4, Magnesium Level 2.0 Microbiology 12/04/19 Urine Culture - Final, Complete NO GROWTH 12/04/19 MRSA Screen - Final, Complete MRSA not isolated Assessment/Plan Assessment/Plan Assess & Plan/Chief Complaint 1. Atrial Fibrillation with RVR--S/P Cardioversion--still in NSR 2. Hypertension--stable 3. Acute Diastolic CHF--dyspnea much improved 4. Hypokalemia--on K replacement protocol 5. Weakness--PT and see if needs/qualifies for rehab Clinical Quality Measures Admission Status Admission Dx 1. Atrial Fibrillation with RVR--on Cardizem drip and loaded with amiodarone, starte on lovenox, cardiology consulted 2. Acute Diastolic CHF--given IV lasix in ER, repeat now x1 3. Hypertension--will resume oral meds once weaned from Cardizem drip 4. Hypothryoidism--update lab 5. Anxiety--xanax prn DVT/VTE Risk/Contraindication: RFS Level Per Nursing on Admit: 4+=Very High GENA GROSSMAN DO Dec 07, 2019 10:50
[2019-12-07] MEDS ORDERED: AMIO200T4 PO (10:54)
[2019-12-07] MEDS ORDERED: POTA20TA8 PO (10:54)
[2019-12-07] MEDS ORDERED: APIX5TAB PO (10:54)
[2019-12-07] MEDS ORDERED: DILT-27 PO (10:54)
--- NOTE | 2019-12-07 11:07 | Discharge Summary ---
Discharge Summary Hospital Course Hospital Course Date of Admission: Dec 03, 2019 at 22:10 Admission Diagnosis : Family Physician/Provider: Cony Poole DO Date of Discharge: 12/07/19 Discharge Diagnosis: [ ] Hospital Course: This is a 79 year old female admitted to the ICU on a cardizem drip for atrial fibrillation with RVR. She was also given loaded with amiodarone as well as lovenox and cardiology was consulted. She underwent a TIANNA with cardioversion by Dr. Garnica on 12/05/19 and converted back to a NSR. She remained in a NSR the following day but was very weak so PT was ordered as well as a rehab evaluation. She was also treated for acute diastolic congestive heart failure with lasix and her shortness of air was much improved on discharge. She has been converted to eliquis as well as oral cardizem and amiodarone. Her blood pressure is stable. She will be transferred to the rehab unit for further strengthening as well as monitoring of response to new medications. Labs and Pending Lab Test: Laboratory Tests 12/07/19 05:35: White Blood Count 10.0, Red Blood Count 4.32L, Hemoglobin 13.1, Hematocrit 40, Mean Corpuscular Volume 91, Mean Corpuscular Hemoglobin 30, Mean Corpuscular Hemoglobin Concent 33, Red Cell Distribution Width 13.3, Platelet Count 231, Mean Platelet Volume 9.4, Neutrophils (%) (Auto) 80H, Lymphocytes (%) (Auto) 11L , Monocytes (%) (Auto) 7, Eosinophils (%) (Auto) 2, Basophils (%) (Auto) 0, Neutrophils # (Auto) 8.0H, Lymphocytes # (Auto) 1.1, Monocytes # (Auto) 0.7, Eosinophils # (Auto) 0.2, Basophils # (Auto) 0.0, Sodium Level 137, Potassium Level 4.1, Chloride Level 103, Carbon Dioxide Level 22, Anion Gap 12, Blood Urea Nitrogen 16, Creatinine 0.75, Estimat Glomerular Filtration Rate > 60, BUN/Creatinine Ratio 21, Glucose Level 92, Calcium Level 8.7, Phosphorus Level 2.4, Magnesium Level 2.0 Microbiology 12/04/19 Urine Culture - Final, Complete NO GROWTH 12/04/19 MRSA Screen - Final, Complete MRSA not isolated Home Meds Active Klor-Con M20 (Potassium Chloride) 20 Meq Tab.er.prt 40 Meq PO DAILY@0600 Diltiazem 24Hr ER (Diltiazem HCl) 120 Mg Cap.er.24h 120 Mg PO DAILY Amiodarone HCl 200 Mg Tablet 200 Mg PO DAILY Eliquis (Apixaban) 5 Mg Tablet 5 Mg PO BID Reported Refresh Optive Gel Eye Drops (Carboxymethylcellulos/Glycerin) 10 Ml Drops.gel 1- 2 Drops OU TID Refresh Liquigel (Carboxymethylcellulose Sodium) 15 Ml Drp.lq.gel 1-2 Drops OU BID Aspirin EC (Aspirin) 81 Mg Tablet.dr 81 Mg PO HS Zyrtec (Cetirizine HCl) 10 Mg Tablet 10 Mg PO DAILY Amlodipine Besylate 5 Mg Tablet 5 Mg PO HS Potassium Chloride 20 Meq Tablet.er 20 Meq PO TWICE DAILY Q 48H TAKES 1 TAB TWICE DAILY EVERY 48 HOURS Synthroid (Levothyroxine Sodium) 75 Mcg Tablet 75 Mcg PO DAILY Magnesium Oxide 400 Mg Tablet 400 Mg PO Q48H Temazepam 15 Mg Capsule 15 Mg PO HS Furosemide 40 Mg Tablet 40 Mg PO Q48H Flecainide Acetate 100 Mg Tablet 100 Mg PO BID Assessment/Pt Instructions 1. Atrial Fibrillation with RVR--S/P Cardioversion 2. Hypertension 3. Acute Diastolic Congestive Heart Failure 4. Hypokalemia 5. Hypothyroidism 6. Weakness Discharge Instructions Discharge Diet: Cardiac Diet Activity as Tolerated: Yes Consultations Dr. Garnica Discharge Physical Examination Vital Signs Vital Signs Date Time Temp Pulse Resp B/P (MAP) Pulse Ox O2 Delivery O2 Flow Rate FiO2 12/07/19 09:00 93 Room Air 4.00 12/07/19 08:00 36.6 77 20 118/71 (87) General Appearance: Mild Distress Respiratory: Lungs Clear Cardiovascular: Regular Rate, Rhythm, Systolic Murmur Gastrointestinal: Normal Bowel Sounds, Non Tender, Soft Extremity: Non Tender, No Calf Tenderness, No Pedal Edema Skin: Warm/Dry Neurologic/Psychiatric: Alert, Oriented x3 Allergies: Coded Allergies: adhesive tape (Unverified Allergy, Unknown, 11/27/15) amoxicillin (Unverified Allergy, Unknown, 11/27/15) codeine (Unverified Allergy, Unknown, 11/27/15) Discharge Summary Date of Admission Dec 03, 2019 at 22:10 Date of Discharge Discharge Date: Dec 07, 2019 Clinical Quality Measures DVT/VTE Risk/Contraindication: RFS Level Per Nursing on Admit: 4+=Very High CONY POOLE DO Dec 07, 2019 11:07
[2019-12-07 11:13] VITALS: BP 118/71
== END 2019-12-07 11:20 | DRG 308 ==
LOC: EDUNIT# 20:49 → ER 20:50 → ICU 22:10 → 4TH 12-06 16:31
PROVIDERS: ADMIT Family Medicine; ATTEND Family Medicine
PROC: 5A2204Z Restoration of Cardiac Rhythm, Single (ICD-10-PCS; principal; 2019-12-05)
DX: I48.0 Paroxysmal atrial fibrillation (principal); I50.31 Acute diastolic (congestive) heart failure; I11.0 Hypertensive heart disease with heart failure; E03.9 Hypothyroidism, unspecified; E87.6 Hypokalemia; F41.9 Anxiety disorder, unspecified; G47.9 Sleep disorder, unspecified; I34.0 Nonrheumatic mitral (valve) insufficiency; R63.0 Anorexia; M62.81 Muscle weakness (generalized); Z87.891 Personal history of nicotine dependence; Z88.1 Allergy status to other antibiotic agents; Z88.5 Allergy status to narcotic agent; Z79.2 Long term (current) use of antibiotics
CPT/HCPCS: 36415; 71045; 80048; 80053; 81000; 82550; 82553; 83036; 83735; 83880; 84100; 84132; 84443; 84484; 85025; 85610; 85730; 87081; 87088; 93005; 93041; 93306; 93312; 93320; 93325; 94640; 96365; 96366; 96367; 96368; 96372; 96375

== ENCOUNTER 2019-12-14 08:05 | Day surgery (SDC) | payer MEDICARE ==
[~2019-12-14 08:05] MED LIST changes: +AMIO200T4 PO; +AMLO5TAB9 PO; +APIX5TAB PO; +CARB10DR2 OU; +CARB15DR3 OU; +CETI10TA21 PO; +DILT-27 PO; +FURO40TA4 PO; +LEVO75TA PO; +MAGN400T8 PO; +POTA-51 PO; +POTA20TA8 PO; +TEMA15CA PO
[2019-12-14] MEDS ORDERED: NS IV 1000 ML 1,000 ML ONE (13:16)
[2019-12-14] MEDS ORDERED: MIDAZOLAM 5 MG/5 ML (VERSED) VIAL ONE (13:18)
[2019-12-14] MEDS ORDERED: proPOfol 200 MG/20 ML (DIPRIVAN) VIAL IV ONE (13:18)
[2019-12-14] MEDS ORDERED: fentaNYL INJECTION 100 MCG/2 ML AMP ONE (13:19)
[2019-12-14 13:27] VITALS: BP 142/84
[2019-12-14 13:34] VITALS: BP 122/64
[2019-12-14 13:37] VITALS: BP 128/63
--- NOTE | 2019-12-14 13:37 | Anesthesia-General Post-Op ---
MAC Patient Condition Mental Status/LOC: Same as Preop Cardiovascular: Satisfactory Nausea/Vomiting: Absent Respiratory: Satisfactory Pain: Controlled Complications: Absent Post Op Complications Complications None Follow Up Care/Instructions Patient Instructions None needed. Anesthesiology Discharge Order Discharge Order Patient is doing well, no complaints, stable vital signs, no apparent adverse anesthesia problems. GUS FRAGOSO DO Dec 14, 2019 13:37
[2019-12-14 13:54] VITALS: BP 148/90
[2019-12-14] MEDS ORDERED: NS IV 1000 ML 1,000 ML IV SCH (14:00)
[2019-12-18] MEDS ORDERED: AMIO200T4 PO (12:30)
[2019-12-18] MEDS ORDERED: DILT-27 PO (12:30)
[2019-12-18] MEDS ORDERED: FURO20TA4 PO (12:30)
[2019-12-18] MEDS ORDERED: APIX5TAB PO (12:30)
[2019-12-18] MEDS ORDERED: LEVO75TA PO (12:30)
== END 2019-12-14 14:10 ==
LOC: CATH 08:05
PROVIDERS: ATTEND Internal Medicine Interventional Cardiology
DX: I48.19 Other persistent atrial fibrillation (principal)
CPT/HCPCS: 92960; 93005

== ENCOUNTER 2020-01-15 11:41 | Outpatient (RCR) | payer MEDICARE ==
[~2020-01-15 11:41] MED LIST changes: -AMIO200T4 PO; +AMIO200T6 PO; +AMLO-250 PO; -AMLO5TAB9 PO; +ASPI-1238 PO; -ASPI-983 PO; -CETI10TA21 PO; +CETI10TA49 PO; +FURO20TA4 PO
== END 2020-04-14 | disposition home or self-care (01) ==
LOC: CARD 11:41
PROVIDERS: ATTEND Internal Medicine Interventional Cardiology
DX: I48.19 Other persistent atrial fibrillation (principal)

== ENCOUNTER 2020-03-01 11:30 | Day surgery (SDC) | payer MEDICARE ==
[~2020-03-01] VITALS: Ht 161 cm; Wt 58.0 kg
[2020-03-01 10:46] VITALS: BP 158/79
[~2020-03-01 11:30] MED LIST changes: +AMIO200T4 PO; -AMIO200T6 PO; -AMLO-250 PO; +AMLO5TAB9 PO; +LIDOCAINE 1% INJ 20 ML 20 ML VIAL INJ ONE; +LIDOCAINE 1% INJ 20 ML 20 ML VIAL ONE
[2020-03-01 12:03] VITALS: BP 158/79
--- NOTE | 2020-03-01 14:57 | Implantation of Loop Monitor ---
Implant of Loop Monitior PROCEDURE PHYSICIAN: Danilo Garnica MD IMPLANTATION OF LOOP MONITOR REPORT DATE OF PROCEDURE: 03/01/20 PERFORMING PHYSICIAN: Dr. Nolan Garnica. INDICATION: Long-term surveillance of atrial fibrillation PREOP DIAGNOSIS: Long-term surveillance of atrial fibrillation POSTOP DIAGNOSIS: Atrial fibrillation, s/p implantation of loop recorder. PROCEDURE DETAILS: The patient is a 80 female with history of persistent atrial fibrillation re quiring long-term surveillance. Therefore implantable loop recorder was discussed and agreed with the patient. Informed consent was taken. All risks and complications were discussed at length. The patient was draped and prepped in the usual sterile fashion. Local anesthesia was lidocaine, which was given in the substernal area close to the 4th intercostal space. Loop monitor was i mplanted according to the protocol. Steri-Strips were placed at the end of the procedure. There were no complications and the patient tolerated the procedure well. ANESTHESIA: Local anesthesia with lidocaine. COMPLICATIONS: None CONTRAST/FLUOROSCOPY: None CONCLUSION: 1. Successful implantation of loop monitor for long-term surveillance of atrial fibrillation. 2. No complication and the patient tolerated the procedure well. Danilo Garnica MD, [facility] Cardiac Electrophysiology Ban GARNICA MD Mar 01, 2020 14:57
== END 2020-03-01 12:05 ==
LOC: CATH 11:30
PROVIDERS: ATTEND Internal Medicine Interventional Cardiology
DX: I48.19 Other persistent atrial fibrillation (principal); I10 Essential (primary) hypertension; I34.0 Nonrheumatic mitral (valve) insufficiency; Z79.01 Long term (current) use of anticoagulants; Z79.899 Other long term (current) drug therapy; Z88.1 Allergy status to other antibiotic agents; Z88.5 Allergy status to narcotic agent; Z91.048 Other nonmedicinal substance allergy status; Z87.891 Personal history of nicotine dependence; Z83.3 Family history of diabetes mellitus; Z80.9 Family history of malignant neoplasm, unspecified
CPT/HCPCS: 33285; C1764

== ENCOUNTER → 2020-03-20 | Outpatient (CLI) | payer MEDICARE ==
[~2020-03-20] MED LIST changes: -LIDOCAINE 1% INJ 20 ML 20 ML VIAL INJ ONE; -LIDOCAINE 1% INJ 20 ML 20 ML VIAL ONE
--- NOTE | 2020-03-22 08:22 | NUR ---
Notified patient of positive COVID results. She was on the phone to the Dr office as well.
== END ==
LOC: LABNPT 07:14
PROVIDERS: ATTEND Family Medicine
DX: U07.1 COVID-19 (principal); J06.9 Acute upper respiratory infection, unspecified
CPT/HCPCS: 87635

== ENCOUNTER → 2020-04-08 | Outpatient (CLI) | payer MEDICARE ==
[~2020-04-08] MED LIST changes: -AMIO200T4 PO; +AMIO200T6 PO; +AMLO-250 PO; -AMLO5TAB9 PO
--- NOTE | 2020-04-09 12:14 | Diagnostic Imaging Report ---
INDICATION: Routine screening. COMPARISON: 04/03/2019 and 04/27/2017. TECHNIQUE: 2D and 3D bilateral screening mammography was performed with CAD. FINDINGS: Scattered fibroglandular densities are identified bilaterally. A circumscribed density in the retroareolar left breast is noted. This is best seen on the CC view. The previously noted cyst in the more posterior and outer left breast has resolved. No additional mass is identified. No suspicious microcalcifications are seen. A cardiac monitoring device overlies the medial left breast. The axillae are unremarkable. IMPRESSION: There is a circumscribed density in the retroareolar left breast slightly lateral to the nipple line. Further evaluation of this area with ultrasound is recommended. ACR BI-RADS Category 0: Incomplete. (Needs additional imaging evaluation). Result letter will be mailed to the patient. Note: At least 10% of breast cancer is not imaged by mammography. Dictated by: Dictated on workstation # [id number]
== END ==
LOC: RAD 14:59
PROVIDERS: ATTEND Family Medicine
DX: Z12.31 Encounter for screening mammogram for malignant neoplasm of breast (principal); U07.1 COVID-19; R91.1 Solitary pulmonary nodule
CPT/HCPCS: 71250; 77063; 77067

== ENCOUNTER → 2020-04-18 | Outpatient (CLI) | payer MEDICARE ==
--- NOTE | 2020-04-18 17:13 | Diagnostic Imaging Report ---
INDICATION: Left breast density. CORRELATION is made with screening mammogram from 04/08/2020. Interrogation of the retroareolar left breast was performed. There is a tiny cyst at the 3:30 location of the left breast 3 cm from the nipple measuring approximately 3 mm in diameter. It is uncertain if this represents the density noted mammographically. No other sonographic abnormalities are detected. IMPRESSION: BI-RADS 0 Tiny cyst retroareolar and slightly lateral left breast which may account for the mammographic density. Even so, a diagnostic mammography of the left breast including spot compression and rolled CC views is recommended for further evaluation. ACR BI-RADS Category 0: Incomplete. (Needs additional imaging evaluation). Result letter will be mailed to the patient. Note: At least 10% of breast cancer is not imaged by mammography. Dictated by: Dictated on workstation # [id number]
--- NOTE | 2020-04-19 10:08 | Diagnostic Imaging Report ---
INDICATION: Left breast density. Patient presents for additional views. CORRELATION is made with recent screening study from 04/08/2020. Unilateral left 2-D and 3-D diagnostic mammography was performed with CAD. This included spot compression CC and ML views as well as conventional 90 degree lateral views. Additional views show persistent slightly nodular density in the outer right breast retroareolar region. This likely accounts for the cysts noted on ultrasound. No other abnormalities are seen. IMPRESSION: BI-RADS Category 2 Probable cyst in the outer retroareolar left breast. Patient may return to routine annual screening mammography. ACR BI-RADS Category 2: Benign findings. Result letter will be mailed to the patient. Note: At least 10% of breast cancer is not imaged by mammography. Dictated by: Dictated on workstation # [id number]
== END ==
LOC: RAD 13:45
PROVIDERS: ATTEND Nurse Practitioner Family
DX: R92.2 Inconclusive mammogram (principal); U07.1 COVID-19
CPT/HCPCS: 76642; 77065; G0279

== ENCOUNTER 2020-06-22 13:19 | Emergency (ER) | payer MEDICARE ==
[~2020-06-22] VITALS: Ht 160 cm; Wt 65.0 kg
--- NOTE | 2020-06-22 14:09 | ED General ---
General Stated Complaint: HX CHF/ELEV BP/"FEELS CRAPPY" History of Present Illness Date Seen by Provider: Jun 22, 2020 Time Seen by Provider: 13:50 Initial Comments 80-year-old female presents for generalized discomforts. She has no specific complaint. Symptoms have been present for approximately 3 days. She did eat denies having a fever, shortness of air, chest pain, nausea or vomiting. She has no specific complaints of pain. She states her appetite has been less than normal. She was evaluated at urgent care yesterday. She did note her blood pressure to be slightly elevated this morning. She has a history of A. fib and is on Eliquis. She had COVID-19 in March and recovered with no chronic complaints. She had a COVID test 2 weeks ago, drive through, that was negative. Severity: Mild Associated Systoms: No Chest Pain, No Cough, No Diaphoresis, No Fever/Chills, No Headaches; Loss of Appetite, Malaise; No Nausea/Vomiting, No Shortness of Air, No Syncope, No Weakness Allergies and Home Medications Allergies Coded Allergies: adhesive tape (Unverified Allergy, Unknown, 11/27/15) amoxicillin (Unverified Allergy, Unknown, 11/27/15) codeine (Unverified Allergy, Unknown, 11/27/15) Home Medications Amiodarone HCl 200 Mg Tablet, 200 MG PO DAILY Prescribed by: GENA GROSSMAN on 12/07/19 1054 Amiodarone HCl 200 Mg Tablet, 200 MG PO DAILY Prescribed by: GENA GROSSMAN on 12/18/19 1230 Apixaban 5 Mg Tablet, 5 MG PO BID Prescribed by: GENA GROSSMAN on 12/07/19 1054 Apixaban 5 Mg Tablet, 5 MG PO BID Prescribed by: GENA GROSSMAN on 12/18/19 1230 Aspirin 81 Mg Tablet.dr, 81 MG PO HS, (Reported) Carboxymethylcellulos/Glycerin 10 Ml Drops.gel, 1-2 DROPS OU TID, (Reported) Carboxymethylcellulose Sodium 15 Ml Drp.lq.gel, 1-2 DROPS OU BID, (Reported) Cetirizine HCl 10 Mg Tablet, 10 MG PO DAILY, (Reported) Diltiazem HCl 120 Mg Cap.er.24h, 120 MG PO DAILY Prescribed by: GENA GROSSMAN on 12/07/19 1054 Diltiazem HCl 120 Mg Cap.er.24h, 120 MG PO DAILY Prescribed by: GENA GROSSMAN on 12/18/19 1230 Furosemide 20 Mg Tablet, 20 MG PO DAILY Can take 1/2 tablet of furosemide 40mg daily Prescribed by: GENA GROSSMAN on 12/18/19 1230 Levothyroxine Sodium 75 Mcg Tablet, 75 MCG PO DAILY, (Reported) Levothyroxine Sodium 75 Mcg Tablet, 75 MCG PO DAILY@0630 Prescribed by: GENA GROSSMAN on 12/18/19 1230 Potassium Chloride 20 Meq Tab.er.prt, 40 MEQ PO DAILY@0600 Prescribed by: GENA GROSSMAN on 12/07/19 1054 Patient Home Medication List Home Medication List Reviewed: Yes Review of Systems Review of Systems Constitutional: no symptoms reported, see HPI EENTM: see HPI, no symptoms reported Respiratory: no symptoms reported, see HPI; No cough, No dyspnea on exertion, No short of breath Cardiovascular: no symptoms reported, see HPI Gastrointestinal: see HPI; No abdominal pain, No constipation, No diarrhea; loss of appetite; No nausea, No vomiting Genitourinary: no symptoms reported, see HPI Musculoskeletal: no symptoms reported, see HPI; No back pain, No joint pain, No muscle pain, No muscle stiffness, No muscle cramps All Other Systems Reviewed Negative Unless Noted: Yes Past Exwwwzf-Lupqde-Scdisf Hx Past Med/Social Hx: Reviewed Nursing Past Med/Soc Hx Patient Social History Former Smoker, Quit: Nov 26, 1984 Recent Hopitalizations: No Immunizations Up To Date Tetanus Booster (TDap): Unknown Date of Pneumonia Vaccine: Jan 13, 2016 Seasonal Allergies Seasonal Allergies: No Past Medical History Surgeries: Yes (BASAL CELL CA REMOVED, SX FOR ENDOMETRIOSIS) Respiratory: Yes Pneumonia, COPD Currently Using CPAP: No Currently Using BIPAP: No Cardiac: Yes Atrial Fibrillation, Chronic Edema/Swelling, Hypertension Neurological: No Reproductive Disorders: No Genitourinary: Yes Kidney Infection, Bladder Infection Gastrointestinal: No Musculoskeletal: No Scoliosis Endocrine: Yes Hypothyroidsim HEENT: Yes (CATARACTS REMOVED) Cataract Loss of Vision: Bilateral Hearing Impairment: Hard of Hearing Cancer: No Psychosocial: Yes Sleep Difficulties, Anxiety Integumentary: No Blood Disorders: No Adverse Reaction/Blood Tranf: No Family Medical History Asthma Colon cancer Deafness or hearing loss Diabetes mellitus Hypertension Neoplasm Thyroid disease Physical Exam Vital Signs Vital Signs - First Documented 06/22/20 13:45 Temp 36.0 Pulse 82 Resp 16 B/P (MAP) 167/79 (108) Pulse Ox 97 Capillary Refill : Height, Weight, BMI Height: 5'3.50" Weight: 157lbs. 0.9oz. 71.085159cz; 22.37 BMI Method: General Appearance: No Apparent Distress, WD/WN Eyes: Bilateral Eye Normal Inspection, Bilateral Eye PERRL, Bilateral Eye Abnormal EOM HEENT: PERRL/EOMI, TMs Normal, Normal ENT Inspection, Pharynx Normal Neck: Full Range of Motion, Normal Inspection, Non Tender, Supple Respiratory: Chest Non Tender, Lungs Clear, Normal Breath Sounds, No Accessory Muscle Use Cardiovascular: Regular Rate, Rhythm, No Edema, No Murmur, Normal Peripheral Pulses Gastrointestinal: Normal Bowel Sounds, Non Tender, Soft Back: Normal Inspection, No CVA Tenderness, No Vertebral Tenderness Extremity: Normal Capillary Refill, Normal Inspection, Normal Range of Motion, No Pedal Edema Neurologic/Psychiatric: Alert, Oriented x3, No Motor/Sensory Deficits, Normal Mood/Affect Skin: Normal Color, Warm/Dry Progress/Results/Core Measures Suspected Sepsis SIRS Temperature: Pulse: Respiratory Rate: Laboratory Tests 06/22/20 14:07: White Blood Count 6.8 Blood Pressure / Mean: Laboratory Tests 06/22/20 14:07: Creatinine 0.89, Platelet Count 193, Total Bilirubin 0.9 Results/Orders Lab Results Laboratory Tests Test 06/22/20 14:07 06/22/20 15:40 Range/Units White Blood Count 6.8 4.3-11.0 10^3/uL Red Blood Count 4.15 3.80-5.11 10^6/uL Hemoglobin 12.8 11.5-16.0 g/dL Hematocrit 39 35-52 % Mean Corpuscular Volume 93 80-99 fL Mean Corpuscular Hemoglobin 31 25-34 pg Mean Corpuscular Hemoglobin Concent 33 32-36 g/dL Red Cell Distribution Width 12.1 10.0-14.5 % Platelet Count 193 130-400 10^3/uL Mean Platelet Volume 9.3 9.0-12.2 fL Immature Granulocyte % (Auto) 0 % Neutrophils (%) (Auto) 75 42-75 % Lymphocytes (%) (Auto) 19 12-44 % Monocytes (%) (Auto) 5 0-12 % Eosinophils (%) (Auto) 1 0-10 % Basophils (%) (Auto) 1 0-10 % Neutrophils # (Auto) 5.1 1.8-7.8 10^3/uL Lymphocytes # (Auto) 1.3 1.0-4.0 10^3/uL Monocytes # (Auto) 0.3 0.0-1.0 10^3/uL Eosinophils # (Auto) 0.1 0.0-0.3 10^3/uL Basophils # (Auto) 0.1 0.0-0.1 10^3/uL Immature Granulocyte # (Auto) 0.0 0.0-0.1 10^3/uL Sodium Level 140 135-145 MMOL/L Potassium Level 3.9 3.6-5.0 MMOL/L Chloride Level 106 98-107 MMOL/L Carbon Dioxide Level 24 21-32 MMOL/L Anion Gap 10 5-14 MMOL/L Blood Urea Nitrogen 19 H 7-18 MG/DL Creatinine 0.89 0.60-1.30 MG/DL Estimat Glomerular Filtration Rate > 60 BUN/Creatinine Ratio 21 Glucose Level 97 70-105 MG/DL Calcium Level 9.2 8.5-10.1 MG/DL Corrected Calcium 9.1 8.5-10.1 MG/DL Total Bilirubin 0.9 0.1-1.0 MG/DL Aspartate Amino Transf (AST/SGOT) 19 5-34 U/L Alanine Aminotransferase (ALT/SGPT) 13 0-55 U/L Alkaline Phosphatase 72 40-136 U/L Total Protein 7.3 6.4-8.2 GM/DL Albumin 4.1 3.2-4.5 GM/DL Urine Color YELLOW Urine Clarity CLEAR Urine pH 7.0 5-9 Urine Specific [place] <=1.005 1.016-1.022 Urine Protein NEGATIVE NEGATIVE Urine Glucose (UA) NEGATIVE NEGATIVE Urine Ketones NEGATIVE NEGATIVE Urine Nitrite NEGATIVE NEGATIVE Urine Bilirubin NEGATIVE NEGATIVE Urine Urobilinogen 0.2 < = 1.0 MG/DL Urine Leukocyte Esterase NEGATIVE NEGATIVE Urine RBC (Auto) NEGATIVE NEGATIVE Urine RBC NONE /HPF Urine WBC NONE /HPF Urine Squamous Epithelial Cells NONE /HPF Urine Crystals NONE /LPF Urine Bacteria NEGATIVE /HPF Urine Casts NONE /LPF Urine Mucus NEGATIVE /LPF Urine Culture Indicated NO Micro Results Microbiology 06/22/20 Influenza Types A,B Antigen (EVELIA) - Final, Complete My Orders Orders - JANNET TAVAREZ Cbc With Automated Diff (06/22/20 13:45) Comprehensive Metabolic Panel (06/22/20 13:45) Ua Culture If Indicated (06/22/20 13:45) Influenza A And B Antigens (06/22/20 13:45) Vital Signs/I&O 06/22/20 13:45 Temp 36.0 Pulse 82 Resp 16 B/P (MAP) 167/79 (108) Pulse Ox 97 Capillary Refill : Progress Note : Time: 13:50 Progress Note Patient seen and evaluated sinus rhythm per telemetry. Will obtain labs including influenza and reevaluate. 1445 patient went to bathroom to , urine did not get collected. Will obtain another urine sample when patient able to provide. 1530 urine obtained. Patient drinking water no complaints. Blood pressure 150/76. [address] Grossman about patient, recommended increasing her Cardizem to BID, until follow up. Discharge instructions and return precautions reviewed with the patient. Departure Impression Primary Impression: Hypertension Qualified Codes: I10 - Essential (primary) hypertension Disposition: 01 HOME, SELF-CARE Condition: Improved Departure-Patient Inst. Decision time for Depature: 16:00 Referrals: GENA GROSSMAN DO (PCP/Family) Primary Care Physician Patient Instructions: General (DC) Add. Discharge Instructions: Take 1 Cardizem in the morning and 1 in the evening, until you follow up with Dr. Grossman. Increase water intake, 16 oz every 2 hours while awake. Eat small, frequent meals. Call for follow-up appointment early next week with Dr. Grossman. Return to the emergency department for shortness of air, chest pain, fever greater than 101 degrees, or new concerns. Copy Copies To 1: GENA GROSSMAN AMY ARNP Jun 22, 2020 14:09
[2020-06-22 14:18] LABS: BASOPHILS # (AUTO) 0.1 10^3/uL (0.0-0.1); BASOPHILS % (AUTO) 1 % (0-10); EOSINOPHILS # (AUTO) 0.1 10^3/uL (0.0-0.3); EOSINOPHILS % (AUTO) 1 % (0-10); HEMATOCRIT 39 % (35-52); HEMOGLOBIN 12.8 g/dL (11.5-16.0); LYMPHOCYTES # (AUTO) 1.3 10^3/uL (1.0-4.0); LYMPHOCYTES % (AUTO) 19 % (12-44); MEAN CORPUSCULAR HEMOGLOBIN 31 pg (25-34); MEAN CORPUSCULAR HGB CONC 33 g/dL (32-36); MEAN CORPUSCULAR VOLUME 93 fL (80-99); MEAN PLATELET VOLUME 9.3 fL (9.0-12.2); MONOCYTES # (AUTO) 0.3 10^3/uL (0.0-1.0); MONOCYTES % (AUTO) 5 % (0-12); NEUTROPHILS # (AUTO) 5.1 10^3/uL (1.8-7.8); NEUTROPHILS % (AUTO) 75 % (42-75); PLATELET COUNT 193 10^3/uL (130-400); WHITE BLOOD COUNT 6.8 10^3/uL (4.3-11.0)
[2020-06-22 14:30] LABS: ALBUMIN 4.1 GM/DL (3.2-4.5); CHLORIDE 106 MMOL/L (98-107); POTASSIUM 3.9 MMOL/L (3.6-5.0); SODIUM 140 MMOL/L (135-145)
[2020-06-22 14:31] LABS: CALCIUM 9.2 MG/DL (8.5-10.1)
[2020-06-22 14:33] LABS: GLUCOSE 97 MG/DL (70-105); TOTAL PROTEIN 7.3 GM/DL (6.4-8.2)
[2020-06-22 14:34] LABS: BILIRUBIN,TOTAL 0.9 MG/DL (0.1-1.0); CARBON DIOXIDE 24 MMOL/L (21-32)
[2020-06-22 14:36] LABS: ALKALINE PHOSPHATASE 72 U/L (40-136); CREATININE SERUM 0.89 MG/DL (0.60-1.30); GFR ESTIMATED > 60
[2020-06-22 14:37] LABS: BUN/CREATININE RATIO 21
[2020-06-22 14:39] LABS: ALANINE AMINOTRANSFERASE 13 U/L (0-55)
[2020-06-22 15:46] LABS: BILIRUBIN,URINE NEGATIVE (NEGATIVE); CLARITY,URINE CLEAR; COLOR,URINE YELLOW; GLUCOSE, URINE (UA) NEGATIVE (NEGATIVE); KETONES,URINE NEGATIVE (NEGATIVE); LEUKOCYTE ESTERASE ,URINE NEGATIVE (NEGATIVE); NITRITE,URINE NEGATIVE (NEGATIVE); PROTEIN,URINE NEGATIVE (NEGATIVE)
[2020-06-22 15:56] LABS: BACTERIA,URINE NEGATIVE /HPF
[2020-06-22 16:25] VITALS: BP 158/75
== END 2020-06-22 16:25 | disposition home or self-care (01) ==
LOC: EDUNIT# 13:19 → ER 13:21
DX: I10 Essential (primary) hypertension (principal); E03.9 Hypothyroidism, unspecified; I48.91 Unspecified atrial fibrillation; Z87.891 Personal history of nicotine dependence; Z80.0 Family history of malignant neoplasm of digestive organs; Z83.3 Family history of diabetes mellitus; Z82.49 Family history of ischemic heart disease and other diseases of the circulatory system; Z88.5 Allergy status to narcotic agent; Z88.1 Allergy status to other antibiotic agents; Z79.890 Hormone replacement therapy; Z79.82 Long term (current) use of aspirin; Z79.01 Long term (current) use of anticoagulants
CPT/HCPCS: 36415; 80053; 81000; 85025; 87804

== ENCOUNTER → 2020-09-02 | Outpatient (CLI) | payer MEDICARE | LOC: CARD 13:30 | PROVIDERS: ATTEND Internal Medicine Cardiovascular Disease | DX: I08.0 Rheumatic disorders of both mitral and aortic valves (principal) | CPT/HCPCS: 93306 ==

== ENCOUNTER → 2020-09-24 | Outpatient (CLI) | payer MEDICARE ==
[~2020-09-24] VITALS: Ht 160 cm; Wt 59.0 kg
[~2020-09-24] MED LIST changes: +REGADENOSON 0.4 MG/5 ML SYR (LEXISCAN) IV ONE
[2020-09-24] MEDS: CATHETER FLUSH 10 ML SYR IV PRN ×2 (07:49→09:20)
[2020-09-24 09:19] VITALS: BP 167/76
--- NOTE | 2020-09-25 13:29 | STRESS TEST ---
DATE OF SERVICE: 09/24/2020 RESTING AND POST REGADENOSON TECHNETIUM-99M TETROFOSMIN SPECT CT IMAGING ORDERING PHYSICIAN: Dr. Lopez. PRIMARY PHYSICIAN: Dr. Poole. CLINICAL DIAGNOSIS: Fatigue. Baseline images were carried out after injection of 10.98 mCi of technetium-99m Tetrofosmin. This was followed by 0.4 mg regadenoson and 30.6 mCi of technetium-99m Tetrofosmin for stress imaging. The electrocardiogram showed sinus rhythm with left bundle-branch block at baseline. It did not change significantly with the regadenoson infusion. The patient tolerated the procedure well. Review of images at rest and following stress does not indicate any significant perfusion defects consistent with significant myocardial ischemia or infarction. Gated images show normal global left ventricular systolic function with normal regional wall motion. Left ventricular ejection fraction is calculated to be 57%. Left ventricular end diastolic volume is 69 mL. TID is absent (1). CONCLUSIONS: 1. No evidence of any significant myocardial ischemia or infarction on this study. 2. Normal regional wall motion. 3. Normal global left ventricular systolic function with a calculated ejection fraction of 57%. Job ID: [id number] DocumentID: [id number] Dictated Date: 09/25/2020 08:47:42 Customer Service Sales Associate Date: 09/25/2020 13:28:15 Dictated By: TINA LOPEZ MD, MA, FACP, FACC,
== END ==
LOC: CARD 08:30
PROVIDERS: ATTEND Internal Medicine Cardiovascular Disease
DX: R53.83 Other fatigue (principal)
CPT/HCPCS: 78452; 93017; A9502

== ENCOUNTER → 2020-12-13 | Outpatient (RCR) | payer MEDICARE ==
[~2020-12-13] MED LIST changes: -REGADENOSON 0.4 MG/5 ML SYR (LEXISCAN) IV ONE
== END | disposition home or self-care (01) ==
LOC: CR3 11-13 08:00
PROVIDERS: ATTEND Family Medicine
DX: Z29.8 Encounter for other specified prophylactic measures (principal)

== ENCOUNTER 2021-01-10 14:37 | Outpatient (RCR) | payer MEDICARE | END 2021-01-15 | disposition home or self-care (01) | LOC: CR3 14:37 | PROVIDERS: ATTEND Family Medicine | DX: Z29.8 Encounter for other specified prophylactic measures (principal) ==

== ENCOUNTER 2021-02-07 13:53 | Outpatient (RCR) | payer MEDICARE | END 2021-02-16 | disposition home or self-care (01) | LOC: CR3 13:53 | PROVIDERS: ATTEND Family Medicine | DX: Z02.89 Encounter for other administrative examinations (principal) ==

== ENCOUNTER → 2021-02-11 | Outpatient (CLI) | payer MEDICARE | LOC: LABNPT 06:54 | PROVIDERS: ATTEND Otolaryngology Otolaryngology/Facial Plastic Surgery | DX: G47.33 Obstructive sleep apnea (adult) (pediatric) (principal); Z20.822 Contact with and (suspected) exposure to COVID-19 | CPT/HCPCS: 87635 ==

== ENCOUNTER 2021-02-13 20:55 | Outpatient (CLI) | payer MEDICARE | END 2021-02-14 07:09 | disposition home or self-care (01) | LOC: SLEEP 20:55 | PROVIDERS: ATTEND Otolaryngology Otolaryngology/Facial Plastic Surgery | DX: G47.9 Sleep disorder, unspecified (principal); G47.33 Obstructive sleep apnea (adult) (pediatric) | CPT/HCPCS: 95810 ==

== ENCOUNTER → 2021-02-20 | Outpatient (CLI) | payer MEDICARE ==
--- NOTE | 2021-02-20 15:15 | Diagnostic Imaging Report ---
PROCEDURE: US Thyroid. TECHNIQUE: Multiple real-time grayscale images were obtained of the thyroid in various projections. INDICATION: Palpable lump right neck. FINDINGS: The right lobe of the thyroid measures 3.6 x 1.1 x 0.8 cm and the left lobe measures 3.8 x 1.0 x 0.5 cm. Both lobes of the thyroid gland are heterogeneous. No discrete thyroid mass is detected. The area of lump in the right neck does correspond to a right neck lymph node measuring approximately 1.8 x 0.7 x 1.0 cm. There is a significant carotid plaquing instantly noted as well at the carotid bifurcation. There appear to be elevated velocities present in the right carotid system. IMPRESSION: 1. Heterogeneous thyroid but no discrete thyroid mass is detected. 2. Slightly prominent lymph node in the right neck corresponding to patient's palpable abnormality. 3. Significant carotid plaquing on the right at the bifurcation with elevated velocities in the proximal right ICA. Dedicated carotid Doppler would be recommended for further evaluation. No other mass is seen. Dictated by: Dictated on workstation # [id number]
== END ==
LOC: RAD 13:52
PROVIDERS: ATTEND Family Medicine
DX: I65.21 Occlusion and stenosis of right carotid artery (principal); R22.1 Localized swelling, mass and lump, neck
CPT/HCPCS: 76536

== ENCOUNTER → 2021-03-04 | Outpatient (CLI) | payer MEDICARE ==
--- NOTE | 2021-03-04 14:58 | Diagnostic Imaging Report ---
PROCEDURE: US carotid duplex, bilateral. TECHNIQUE: Multiple Real-time grayscale images were obtained over the carotid arteries in various projections, bilaterally. Additional spectral analysis and color Doppler duplex images were also obtained. INDICATION: Coronary artery disease. FINDINGS: There is significant plaque in the right carotid system at the bifurcation extending into the proximal internal and external carotid arteries. The right ICA velocity reaches 247 cm/s. There is high-grade stenosis of the proximal right ECA reaching 492 cm/s. Velocities in the left carotid system are unremarkable. Both vertebral arteries show antegrade flow. IMPRESSION: Moderate bilateral carotid plaque, greatest on the right. Velocity measurements in the right internal carotid artery are consistent with greater than 69% diameter stenosis. Parameters based on the consensus panel Mendoza-Scale and Doppler ultrasound criteria published April 2003, Radiology, Volume 229. DOPPLER (peak systolic velocity M/S Right Left CCA .80 1.4 ICA Proximal 2.5 1.1 ICA Mid 2.5 .92 ICA Distal 1.4 1.4 RATIO 3.1 1.0 ECA 4.9 1.1 VERT .73 .48 Dictated by: Dictated on workstation # [id number]
--- NOTE | 2021-03-04 18:29 | Diagnostic Imaging Report ---
INDICATION: Postmenopausal state COMPARISON: 08/19/2017 FINDINGS: AP Spine L1-L4: [BMD (g/cm2): 0.897] [T-Score: -2.5] [Z-Score: -0.6] [BMD Previous: 0.920] [BMD % Change: -2.5] LT Hip Neck: [BMD (g/cm2): 0.730] [T-Score: -2.2] [Z-Score: 0.0] LT Hip Total: [BMD (g/cm2):0.779] [T-Score:-1.8] [Z-Score: 0.3] [BMD Previous: 0.803] [BMD % Change: -3.0] RT Hip Neck: [BMD (g/cm2):0.730] [T-Score:-2.2] [Z-Score:0.0] RT Hip Total: [BMD (g/cm2):0.756] [T-score:-2.0] [Z-Score:0.1] [BMD Previous:0.789] [BMD % Change:-4.2] *Indicates significant change from prior examination based on 95% confidence level. World Health Organization criteria for BMD interpretation classify patients as Normal (T-score at or above -1.0), Osteopenic (T-score between -1.0 and -2.5) or Osteoporotic (T-score at or below -2.5). LIMITATIONS AND MODIFICATION: None. FRACTURE RISK (FRAX SCORE): The ten year probability of (%): Major Osteoporotic Fracture: [24.3] Hip Fracture: [7.5] IMPRESSION: 1. Osteoporosis. 2. No significant change in bone mineral density since prior examination. 3. See below National Osteoporosis Foundation guidelines on when to potentially initiate pharmacologic therapy. Based on the National Osteoporosis Foundation Guidelines, pharmacologic treatment should be initiated in any of the following, unless clinical conditions suggest otherwise: * Any patient with prior fragility fracture of the hip or vertebrae. A spine fracture indicates 5X risk for subsequent spine fracture and 2X risk for subsequent hip fracture. * Osteoporosis (T-score <-2.5). * Postmenopausal women and men age 50 and older with low bone mass/osteopenia (T-score between -1.0 and -2.5) by DXA and 10-year major osteoporotic fracture greater than 20% or a 10-year probability of hip fracture greater than 3%. These fracture risks are supplied above in the FRAX score, if applicable. * Clinician judgement and/or patient preferences may indicate treatment for people with 10-year fracture probabilities above or below these levels. Dictated by: Dictated on workstation # [id number]
== END ==
LOC: RAD 13:15
PROVIDERS: ATTEND Family Medicine
DX: M81.0 Age-related osteoporosis without current pathological fracture (principal); I65.23 Occlusion and stenosis of bilateral carotid arteries; Z78.0 Asymptomatic menopausal state
CPT/HCPCS: 77080; 93880

== ENCOUNTER → 2021-03-13 | Outpatient (CLI) | payer MEDICARE ==
[~2021-03-13] MED LIST changes: +CATHETER FLUSH 10 ML SYR IV PRN; +HOLD METFORMIN - RECEIVED CONTRAST 20 ML VIAL IV SCH; +IOHEXOL 350 MG/ML 100 ML (OMNIPAQUE 350) VIAL IV ONE; +NS 100 ML (IVPB) BAG IV ONE
[2021-03-13 08:41] LABS: CALCIUM 9.3 MG/DL (8.5-10.1); CREATININE SERUM 0.84 MG/DL (0.60-1.30); POTASSIUM 4.1 MMOL/L (3.6-5.0)
--- NOTE | 2021-03-13 10:51 | Diagnostic Imaging Report ---
REASON FOR EXAM: Stenosis of the carotid arteries. COMPARISON: 03/04/2021. TECHNIQUE: Contrast-enhanced thin section helical images were obtained from the mediastinum to the sella with the bolus of contrast timed for the optimal opacification of the arterial structures of the neck per departmental CTA protocol. Postprocessing and retro-reconstruction with coronal and sagittal reformatted images of the angiographic views of the vessels were obtained and were reviewed. 3D reformatted images were generated on a separate workstation and were reviewed. FINDINGS: The aortic arch and origin of the great vessels was not included on this exam. Both common carotid arteries are normal in course and caliber. There is calcified atherosclerotic plaque in the carotid bulbs and proximal internal carotid arteries. There is stenosis of approximately 80% in the proximal right ICA. Less than 50% stenosis is seen in the left ICA. The vertebral bodies are visualized to the skull base. No evidence of dissection. The external carotid arteries are visualized and have an unremarkable appearance. The vertebral arteries are codominant. The origin of the right vertebral artery is seen and is unremarkable. The origin of the left vertebral artery is seen and is unremarkable. There is no focal stenosis seen within the neck. There is no dissection. The vertebral arteries are well visualized to up to the level of the basilar artery. The osseous structures of the cervical spine are unremarkable. Included views through the lung apices demonstrate no focal consolidation. Included views through the intracranial structures demonstrate no acute abnormalities. IMPRESSION: 1. Approximately 80% stenosis in the proximal right ICA secondary to atherosclerotic plaque. 2. No significant stenosis is seen in the left carotid system. 3. No stenosis or dissection in the bilateral vertebral arteries. Dictated by: Dictated on workstation # [id number]
== END ==
LOC: RAD 08:45
PROVIDERS: ATTEND Internal Medicine Cardiovascular Disease
DX: I65.23 Occlusion and stenosis of bilateral carotid arteries (principal); I10 Essential (primary) hypertension
CPT/HCPCS: 36415; 70498; 80048

== ENCOUNTER → 2021-03-19 | Outpatient (RCR) | payer MEDICARE ==
[~2021-03-19] MED LIST changes: -CATHETER FLUSH 10 ML SYR IV PRN; -HOLD METFORMIN - RECEIVED CONTRAST 20 ML VIAL IV SCH; -IOHEXOL 350 MG/ML 100 ML (OMNIPAQUE 350) VIAL IV ONE; -NS 100 ML (IVPB) BAG IV ONE
== END | disposition home or self-care (01) ==
LOC: CR3 02-17 13:29
PROVIDERS: ATTEND Family Medicine
DX: Z29.8 Encounter for other specified prophylactic measures (principal)

== ENCOUNTER 2021-04-18 13:04 | Outpatient (RCR) | payer MEDICARE ==
[~2021-04-18 13:04] MED LIST changes: -MAGN400T8 PO; +MGX400T PO
== END 2021-04-20 | disposition home or self-care (01) ==
LOC: CR3 13:04
PROVIDERS: ATTEND Family Medicine
DX: Z29.8 Encounter for other specified prophylactic measures (principal)

== ENCOUNTER 2021-05-16 13:12 | Outpatient (RCR) | payer MEDICARE ==
[~2021-05-16 13:12] MED LIST changes: -AMIO200T6 PO; +AMIO200T65 PO; +POTA-169 PO; -POTA10TA36 PO; +POTA10TA37 PO; -POTA20TA8 PO
== END 2021-05-21 | disposition home or self-care (01) ==
LOC: CR3 13:12
PROVIDERS: ATTEND Family Medicine
DX: Z29.8 Encounter for other specified prophylactic measures (principal)

== ENCOUNTER 2021-05-23 13:28 | Outpatient (RCR) | payer MEDICARE ==
[2021-05-28] MEDS ORDERED: CYAN500T8 PO (10:31)
[2021-05-28] MEDS ORDERED: MENT118G TP (10:31)
[2021-05-28] MEDS ORDERED: CETI10TA17 PO (10:31)
[2021-05-28] MEDS ORDERED: DOXA1TAB2 PO (10:31)
[2021-05-28] MEDS ORDERED: APIX5TAB PO (10:31)
[2021-05-28] MEDS ORDERED: SODI0.5GEL NS (10:31)
[2021-05-28] MEDS ORDERED: CHOL100048 PO ×2 (10:31)
[2021-05-28] MEDS ORDERED: CARB1DRO36 OU (10:31)
[2021-05-28] MEDS ORDERED: SIMV20TA26 PO (10:31)
[2021-05-28] MEDS ORDERED: ACET325T38 PO (10:31)
[2021-05-28] MEDS ORDERED: DILT240T10 PO (10:31)
[2021-05-28] MEDS ORDERED: ASPI-1238 PO (10:31)
[2021-05-28] MEDS ORDERED: FLUT9.9S NSEACH (10:31)
[2021-05-28] MEDS ORDERED: MAGIC MOUTHWASH (10:31)
[2021-05-28] MEDS ORDERED: LEVO88TA54 PO (10:31)
[2021-05-28] MEDS ORDERED: MAGN400T39 PO (10:31)
[2021-05-28] MEDS ORDERED: CARB15DR3 OU (10:31)
[2021-05-28] MEDS ORDERED: LACT1CAP39 PO (10:31)
[2021-05-28] MEDS ORDERED: DOCU100T2 PO (10:31)
== END 2021-06-06 | disposition home or self-care (01) ==
PROVIDERS: ATTEND Family Medicine
DX: M50.10 Cervical disc disorder with radiculopathy, unspecified cervical region (principal)

== ENCOUNTER 2021-05-28 10:02 | Inpatient (IN) | payer MEDICARE ==
[~2021-05-28] VITALS: Ht 160 cm; Wt 63.3 kg
[2021-05-28] MEDS ORDERED: MAGN400T39 PO (10:31)
[2021-05-28] MEDS ORDERED: SODI0.5GEL NS (10:31)
[2021-05-28] MEDS ORDERED: APIX5TAB PO (10:31)
[2021-05-28] MEDS ORDERED: DILT240T10 PO (10:31)
[2021-05-28] MEDS ORDERED: CYAN500T8 PO (10:31)
[2021-05-28] MEDS ORDERED: DOCU100T2 PO (10:31)
[2021-05-28] MEDS ORDERED: CARB1DRO36 OU (10:31)
[2021-05-28] MEDS ORDERED: SIMV20TA26 PO (10:31)
[2021-05-28] MEDS ORDERED: MENT118G TP (10:31)
[2021-05-28] MEDS ORDERED: CETI10TA17 PO (10:31)
[2021-05-28] MEDS ORDERED: FLUT9.9S NSEACH (10:31)
[2021-05-28] MEDS ORDERED: ASPI-1238 PO (10:31)
[2021-05-28] MEDS ORDERED: ACET325T38 PO (10:31)
[2021-05-28] MEDS ORDERED: LEVO88TA54 PO (10:31)
[2021-05-28] MEDS ORDERED: MAGIC MOUTHWASH (10:31)
[2021-05-28] MEDS ORDERED: CHOL100048 PO ×2 (10:31)
[2021-05-28] MEDS ORDERED: DOXA1TAB2 PO (10:31)
[2021-05-28] MEDS ORDERED: LACT1CAP39 PO (10:31)
[2021-05-28] MEDS ORDERED: CARB15DR3 OU (10:31)
[2021-05-28] MEDS ORDERED: BISACODYL 10 MG SUPP (DULCOLAX) PR PRN (12:45)
[2021-05-28] MEDS ORDERED: CALCIUM CARBONATE 500 MG (TUMS) TAB.CHEW PO PRN (12:45)
[2021-05-28] MEDS ORDERED: ONDANSETRON 4 MG (ZOFRAN) ORAL DISSOLVE TAB PO PRN (12:45)
[2021-05-28] MEDS ORDERED: LOPERAMIDE 2 MG (IMODIUM) TABLET PO PRN (12:45)
[2021-05-28] MEDS ORDERED: FLEET ENEMA ADULT 1 EA BTL PR PRN (12:45)
[2021-05-28] MEDS ORDERED: ALPRAZolam 0.25 MG (XANAX) TAB PO PRN (12:45)
[2021-05-28] MEDS ORDERED: diphenhydrAMINE 25 MG TAB (BENADRYL) PO PRN (12:45)
[2021-05-28] MEDS ORDERED: MELATONIN 3 MG TABLET PO PRN (12:45)
[2021-05-28] MEDS ORDERED: ACETAMINOPHEN 325 MG TABLET PO PRN (12:45)
[2021-05-28] MEDS ORDERED: LACTULOSE SYRUP 10GM/15ML (ENULOSE) 30ML UDC PO PRN (12:45)
--- NOTE | 2021-05-28 14:08 | Physical Therapy Evaluation ---
PT Evaluation-General Medical Diagnosis Admission Date May 28, 2021 at 13:24 Medical Diagnosis: s/p R carotid endarterectomy Onset Date: May 26, 2021 Therapy Diagnosis Therapy Diagnosis: impaired mobility, strength, endurance Height/Weight Height (Feet): 5 Height (Inches): 3.50 Weight (Pounds): 157 Weight (Ounces): 0.9 Weight Bear Status 10# lifting restriction and no squatting Referral Physician: Melina Benjamin DO Reason for Referral: Evaluation/Treatment Medical History Pertinent Medical History: Atrial Fib, HTN Additional Medical History chronic hip and back pain, hypothyroidism Reviewed History: Yes Social History Home: Single Level Current Living Status: Alone Entry Into Home: Stairs With Railing PT Steps Into Home: 3 Prior Prior Level of Function SCALE: Activities may be completed with or without assistive devices. 9-Zffqxwdvbr-qpjpxtf completes the activity by him/herself with no assistance from a helper. 5-Set-up or Clean-up Assistance-helper sets up or cleans up; patient completes activity. [place] assists only prior to or following the activity. 4-Supervision or Touching Assistance-helper provides verbal cues and/or touching/steadying and/or contact guard assistance as patient completes activity. Assistance may be provided throughout the activity or intermittently. 3-Partial/Moderate Assistance-helper does LESS THAN HALF the effort. [place] lifts, holds or supports trunk or limbs, but provides less than half the effort. 2-Substantial/Maximal Assistance-helper does MORE THAN HALF the effort. [place] lifts or holds trunk or limbs and provides more than half the effort. 7-Ykkwprfnj-wnibfv does ALL the effort. Patient does none of the effort to complete the activity. Or, the assistance of 2 or more helpers is required for the patient to complete the activity. If activity was not attempted, code reason: 7-Patient Refused. 9-Not Applicable-not attempted and the patient did not perform the activity before the current illness, exacerbation or injury. 10-Not Attempted due to Environmental Limitations-(lack of equipment, weather restraints, etc.). 88-Not Attempted due to Medical Conditions or Safety Concerns. Bed Mobility: 6 Transfers (B,C,W/C): 6 Gait: 6 Stairs: 6 Indoor Mobility (Ambulation): Independent Stairs: Independent PT Evaluation-Current Subjective Patient has 1-2/10 sciatica pain bilaterally, agrees to PT. Will be co-treating with OT for part of tx due to poor patient mobility, strength, endurance, severe pain with activity, coordinate UE and LE with activity, safety and reduce risk of falls. Pt/Family Goals to be independent at home Objective Patient Orientation: Person, Place, Situation ROM/Strength ROM Lower Extremities WNL Strength Lower Extremities LLE (hip flexion 3/5, knee flexion 4/5, knee extension 4/5, dorsiflexion 4+/5), RLE (hip flexion 3/5, knee flexion 4/5, knee extension 4/5, dorsiflexion 4+/5) Sensory Hearing: Functional Sensation Right Lower Extremit: Intact Sensation Left Lower Extremity: Intact Sensation Lower Extremities patient does complain of some tingling in her toes Transfers Roll Left & Right (QC): 6 Sit to Lying (QC): 4 Lying to Sitting/Side of Bed(Q: 4 Sit to Stand (QC): 4 Chair/Lkd-kf-Ucacr Xfer(QC): 4 Toilet Transfer (QC): 4 Car Transfer (QC): 4 Patient performs rolling with independence, supine <-> sit SBA, sit <-> stand and transfers CGA, car transfer CGA. Patient needs occasional cues for hand placement and positioning. Gait Does the Patient Walk?: Yes Mode of Locomotion: Walk Anticipated Mode of Locomotion: Walk Walk 10 feet (QC): 4 Walk 50 ft with 2 Turns(QC): 4 Walk 150 ft (QC): 4 Walking 10ft/uneven surface-QC: 4 Distance: 100', 150' Gait Assistive Device: FWW Comments/Gait Description Patient can ambulate 150' with a rolling walker with CGA (including 50' with at least 2 turns of 90 degrees and 10' over an uneven surface). Patient ambulates slowly, has a bit of a wandering path but no LOB. Wheelchair Training Wheel 50 ft with 2 turns (QC): 9 Wheel 150 ft (QC): 9 Stairs #of Steps: 4 1 Step (curb) (QC): 4 4 Steps (QC): 4 12 Steps (QC): 88 Patient can go up and down 4 steps using 1 handrail with CGA, cues for foot placement Balance Sitting Static: Normal Sitting Dynamic: Normal Standing Static: Good Standing Dynamic: Good Picking up an Object (QC): 4 Treatment PT performed bed mobility and transfers, ambulation, stair training, positioning and safety during bathing and dressing, OT performed bathing and dressing and UE positioning and safety during activity. Assessment/Needs Patient in room post tx, a MACHINE III COREMAKER will take over for PT at this time. Patient has impaired mobility, strength, endurance. Ambulates and transfers with CGA Rehab Potential: Fair PT Short Term Goals Short Term Goals Time Frame: Jun 04, 2021 Roll Left & Right: 6 Sit to lyin Lying to sitting on side of be: 6 Sit to stand: 4 (SBA) Chair/fpp-xn-lgcpr transfer: 4 (SBA) Walk 10 feet: 4 (SBA) Walk 50 feet with two turns: 4 (SBA) Walk 150 feet: 4 (SBA) 1 step (curb): 4 (SBA) 4 steps: 4 (SBA) PT Fdc Goals Fdc Goals PT Fdc Goals Time Frame: Jun 18, 2021 Roll Left & Right (QC): 6 Sit to Lying (QC): 6 Lying-Sitting on Side/Bed(QC): 6 Sit to Stand (QC): 6 Chair/Tgu-ck-Gegli Xfer(QC): 6 Toilet Transfer (QC): 6 Car Transfer (QC): 6 Does the Patient Walk: Yes Walk 10 feet (QC): 6 Walk 50ft with 2 Turns (QC): 6 Walk 150 ft (QC): 6 Walking 10ft on Uneven Surface: 6 1 Step (curb) (QC): 4 (SBA) 4 Steps (QC): 4 (SBA) 12 Steps (QC): 4 (SBA) Picking up an Object (QC): 6 Wheel 50 feet with 2 turns (QC: 9 Wheel 150 feet: 9 PT Plan Problem List Problem List: Activity Tolerance, Functional Strength, Safety, Balance, Gait, Transfer, Bed Mobility, ROM Treatment/Plan Treatment Plan: Continue Plan of Care Treatment Plan: Bed Mobility, Education, Functional Activity Samy, Functional Strength, Group Therapy, Gait, Safety, Therapeutic Exercise, Transfers Treatment Duration: Jun 18, 2021 Frequency: At least 5 of 7 days/Wk (IRF) Estimated Hrs Per Day: 1.5 hours per day Patient and/or Family Agrees t: Yes Safety Risks/Education Patient Education: Gait Training, Transfer Techniques, Steps, Correct P ositioning, Safety Issues Teaching Recipient: Patient Teaching Methods: Demonstration, Discussion Response to Teaching: Reinforcement Needed Discharge Recommendations Plan Patient will perform bed mobility and transfer training, balance and endurance training, functional strengthening, stair training, gait training, and education, to improve functional mobility and independence at home. Therapy Discharge Recommendati: Scheduled Assistance, Home & Family, Post Acute PT Time/GCodes Time In: 1325 Time Out: 1430 Total Billed Treatment Time: 55 Total Billed Treatment 1 visit EVM 10' FA 45' PT eval from [id number], OT eval from [id number], co-treat from [id number] BALA VINES PT May 28, 2021 14:08
--- NOTE | 2021-05-28 14:38 | Occupational Therapy Eval ---
OT Evaluation-General/PLF Medical Diagnosis Admission Date May 28, 2021 at 13:24 Medical Diagnosis: s/p R carotid endarterectomy Onset Date: May 26, 2021 Therapy Diagnosis Therapy Diagnosis: decreased ADL Status Height/Weight Height (Feet): 5 Height (Inches): 3.50 Weight (Pounds): 157 Weight (Ounces): 0.9 Precautions Comments No lifting >10lb and no squatting for 2 weeks. Referral Physician: Melina Benjamin DO Referral Reason: Evaluation/Treatment Medical History Pertinent Medical History: Atrial Fib, HTN Additional Medical History chronic hip and back pain, hypothyroidism Current History s/p R CEA 05/26/21. Social History Home: Single Level Current Living Status: Alone Entry Into Home: Stairs With Railing Steps Into Home: 3 ADL-Prior Level of Function SCALE: Activities may be completed with or without assistive devices. 5-Xbztrnvlgs-mrgrxet completes the activity by him/herself with no assistance from a helper. 5-Set-up or Clean-up Assistance-helper sets up or cleans up; patient completes activity. [place] assists only prior to or following the activity. 4-Supervision or Touching Assistance-helper provides verbal cues and/or touching/steadying and/or contact guard assistance as patient completes activity. Assistance may be provided throughout the activity or intermittently. 3-Partial/Moderate Assistance-helper does LESS THAN HALF the effort. [place] lifts, holds or supports trunk or limbs, but provides less than half the effort. 2-Substantial/Maximal Assistance-helper does MORE THAN HALF the effort. [place] lifts or holds trunk or limbs and provides more than half the effort. 6-Vdmxmejxn-iumhde does ALL the effort. Patient does none of the effort to complete the activity. Or, the assistance of 2 or more helpers is required for the patient to complete the activity. If activity was not attempted, code reason: 7-Patient Refused. 9-Not Applicable-not attempted and the patient did not perform the activity before the current illness, exacerbation or injury. 10-Not Attempted due to Environmental Limitations-(lack of equipment, weather restraints, etc.). 88-Not Attempted due to Medical Conditions or Safety Concerns. ADL PLOF Comments Pt reports IND with ADLs and functional mobility at PLOF. No AE/AD. Self Care: Independent Functional Cognition: Independent DME/Equipment: Bath Chair, Grab Bars, Shower DME/Equipment Comments owns walker. OT Current Status Subjective Pt reports 1-2/10 pain in hips and discomfort at incision site. Mental Status/Objective Patient Orientation: Person, Place, Situation Current Glasses/Contacts: Yes Hearing Aids: No Dentures/Partials: No Hand Dominance: Left Upper Extremity ROM WFL Upper Extremity Coordination WFL Upper Extremity Sensation WFL Upper Extremity Strength grossly 3/5, not formally tested due to lifting restrictions. ADL-Treatment Eating (QC): 6 (IND per pt report.) Oral Hygiene (QC): 4 (SBA standing at sink.) Shower/Bathe Self (QC): 4 (SBA, pt able to wash/dry all parts.) Upper Body Dressing (QC): 5 (set up assist.) Lower Body Dressing (QC): 3 (min A. Pt able to thread RLE, assist LLE. SBA in stand for pant hike.) On/Off Footwear (QC): 5 (set up assist. Pt able to doff socks/shoes and don slip on shoes.) Toileting Hygiene (QC): 4 (per clincial judgment, SBA with task.) Other Treatments OT evaluation complete. OT/PT cotreat due to skill of 2 clinicians required which a industrial rehabilitation consultant could not perform in order to coordinate UE/LEs, decrease fall risk and due to pt's limitations in strength, activity tolerance, mobility/transfers. OT focused on UE placement, ADLs, cues for sequencing and safety, PT focused on LE placement, gross overall movement, and transfers /mobility. Pt completed functional transfers in/out car simulation, uneven surface, steps, bed mobility, and functional mobility using FWW, please refer to PT evaluation for QC scores associated with mobility/transfers. Pt used FWW to transfer to her room. Pt stood at sink to complete oral care, then transferred to shower to complete showering and dressing. Pt transferred to recliner, education provided on how recliner in her room works in order to position to comfort. Post tx, pt in recliner, call light in reach and all needs met. With transfers/mobility, pt required cues to keep walker close by. Education OT Patient Education: Correct positioning, Energy conservation, Modified ADL techniques, Progress toward Goal/Update tx plan, Purpose of tx/functional activities, Rehab process, Safety issues, Transfer techniques Teaching Recipient: Patient Teaching Methods: Discussion Response to Teaching: Verbalize Understanding OT Short Term Goals Short Term Goals Time Frame: Jun 04, 2021 Shower/bathe self: 5 Lower body dressin Putting on/taking off footwear: 5 OT Perianesthesia Manager Goals Perianesthesia Manager Goals Time Frame: Jun 20, 2021 Eating (QC): 6 Oral Hygiene (QC): 6 Toileting Hygiene (QC): 6 Shower/Bathe Self (QC): 6 Upper Body Dressing (QC): 6 Lower Body Dressing (QC): 6 On/Off Footwear (QC): 6 Additional Goals: 1-Demonstrate ADL Tasks, 2-Verbalize Understanding, 3- ImproveStrength/Samy 1=Demonstrate adherence to instructed precautions during ADL tasks. 2=Patient will verbalize/demonstrate understanding of assistive devices/modifications for ADL. 3=Patient will improve strength/tolerance for activity to enable patient to perform ADL's. OT Education/Plan Problem List/Assessment Assessment: Decreased Activ Tolerance, Decreased UE Strength, Impaired Funct Balance, Impaired I ADL's, Impaired Self-Care Skills Discharge Recommendations Plan/Recommendations: Continue POC Treatment Plan/Plan of Care Patient would benefit from OT for education, treatment and training to promote independence in ADL's, mobility, safety and/or upper extremity function for ADL's. Plan of Care: ADL Retraining, Functional Mobility, Group Exercise/Act as Ind, UE Funct Exercise/Act Treatment Duration: Jun 20, 2021 Frequency: At least 5 of 7 days/Wk (IRF) Estimated Hrs Per Day: 1.5 hours per day Agreement: Yes Rehab Potential: Fair Time/GCodes Start Time: 13:35 Stop Time: 14:50 Total Time Billed (hr/min): 75 Billed Treatment Time [id number] OT eval (10'), [id number] OT/PT cotreat (65') 1, EVM (10'), FA 2 (30'), ADL 2 (35') BERTRAM SCHULTZ OT May 28, 2021 14:38
[2021-05-28 14:54] VITALS: BP 134/61
--- NOTE | 2021-05-28 15:06 | Physical Therapy Daily Note ---
PT Daily Note-Current Subjective This pt. well known to this HALFTONE OPERATOR from previous admits and community. Pt. somewhat confused about relationship of many community members etc. Pt. agrees to LE ther ex but c/o bilat "sciatica" Pain Numeric Pain Scale: 5-Moderate Pain Location: Left (bilat) Location Body Site: Hip Pain Description: Ache Mental Status Patient Orientation: Person, Place, Time, Situation Transfers SCALE: Activities may be completed with or without assistive devices. 1-Rekxmdevlv-zrmelzo completes the activity by him/herself with no assistance from a helper. 5-Set-up or Clean-up Assistance-helper sets up or cleans up; patient completes activity. [place] assists only prior to or following the activity. 4-Supervision or Touching Assistance-helper provides verbal cues and/or to uching/steadying and/or contact guard assistance as patient completes activity. Assistance may be provided throughout the activity or intermittently. 3-Partial/Moderate Assistance-helper does LESS THAN HALF the effort. [place] lifts, holds or supports trunk or limbs, but provides less than half the effort. 2-Substantial/Maximal Assistance-helper does MORE THAN HALF the effort. [place] lifts or holds trunk or limbs and provides more than half the effort. 7-Qoyvqfbgh-qtnnox does ALL the effort. Patient does none of the effort to complete the activity. Or, the assistance of 2 or more helpers is required for the patient to complete the activity. If activity was not attempted, code reason: 7-Patient Refused. 9-Not Applicable-not attempted and the patient did not perform the activity before the current illness, exacerbation or injury. 10-Not Attempted due to Environmental Limitations-(lack of equipment, weather restraints, etc.). 88-Not Attempted due to Medical Conditions or Safety Concerns. observed pts sit to stand and stand to sit at CGA to Mod I Exercises Supine Ex: Ankle pumps, Quad Set, Glut sets, Knee to chest, Short Arc Quads, Straight leg raise (assisted), Hip abd/add Supine Reps: 12 Seated Therapy Exercises: Ankle pumps, Long arc quads Seated Reps: 12 Treatments pt. was oriented to meal ordering , call zeng and other ammenities, PT OT co Rx for coordination of functional activity. Pt. was also oriented to use of recliner details. warm blanket given needs met Assessment Current Status: Good Progress PT Short Term Goals Short Term Goals Time Frame: Jun 04, 2021 Roll Left & Right: 6 Sit to lyin Lying to sitting on side of be: 6 Sit to stand: 4 (SBA) Chair/cqf-yb-liyjr transfer: 4 (SBA) Walk 10 feet: 4 (SBA) Walk 50 feet with two turns: 4 (SBA) Walk 150 feet: 4 (SBA) 1 step (curb): 4 (SBA) 4 steps: 4 (SBA) PT Correction Goals Correction Goals PT Insurance Account Specialist Goals Time Frame: Jun 18, 2021 Roll Left & Right (QC): 6 Sit to Lying (QC): 6 Lying-Sitting on Side/Bed(QC): 6 Sit to Stand (QC): 6 Chair/Ryu-mn-Leaqq Xfer(QC): 6 Toilet Transfer (QC): 6 Car Transfer (QC): 6 Does the Patient Walk: Yes Walk 10 feet (QC): 6 Walk 50ft with 2 Turns (QC): 6 Walk 150 ft (QC): 6 Walking 10ft on Uneven Surface: 6 1 Step (curb) (QC): 4 (SBA) 4 Steps (QC): 4 (SBA) 12 Steps (QC): 4 (SBA) Picking up an Object (QC): 6 Wheel 50 feet with 2 turns (QC: 9 Wheel 150 feet: 9 PT Plan Treatment/Plan Treatment Plan: Continue Plan of Care Treatment Plan: Bed Mobility, Education, Functional Activity Samy, Functional Strength, Group Therapy, Gait, Safety, Therapeutic Exercise, Transfers Treatment Duration: Jun 18, 2021 Frequency: At least 5 of 7 days/Wk (IRF) Estimated Hrs Per Day: 1.5 hours per day Patient and/or Family Agrees t: Yes Safety Risks/Education Patient Education: Correct Positioning, Safety Issues Teaching Recipient: Patient Teaching Methods: Demonstration, Discussion Response to Teaching: Verbalize Understanding, Return Demonstration, Reinforcement Needed Time/GCodes Time In: 1430 Time Out: 1450 Total Billed Treatment Time: 20 Total Billed Treatment 1,EX20m DARION SANTIAGO HALFTONE OPERATOR May 28, 2021 15:06
--- NOTE | 2021-05-28 15:32 | ST Cognitive Linguistic Eval ---
Speech Evaluation-General Medical Diagnosis s/p R carotid endarterectomy Onset Date: May 26, 2021 Therapy Diagnosis Therapy Diagnosis: Cognitive-communication Referral Referring Physician: Dr. Benjamin Medical History Pertinent Medical History: Atrial Fib, HTN Reviewed History: Yes Social History Current Living Status: Alone Speech PLF-Current Status Prior Level of Function Patient lives home alone where she was very active and independent. Subjective Patient was pleasant and cooperative with the cognitive assessment. Language Eval: Auditory Comprehends Simple Yes/No Ques: Functional Indent/Objects Multiple Nunez: Functional Ident/Pics in Multiple Nunez: Functional Follows 1-Step Commands: Functional Follows Complex Directions: Functional Follows General Conversations: Functional Language Eval: Verbal Language Completes Spontaneous Greeting: Functional Produces Auto, Serial Info: Functional Imitates Simple Words/Phrases: Functional Word Finding: Functional Requests Basic Needs: Functional States Basic Personal Info: Functional Expresses Complex Ideas: Functional Objective Cognitive Domain Attention: WNL Memory: WNL Problem Solving: Functional Executive Functions: WNL Visuospatial Skills: WNL Composite Severity Rating: WNL Clock Drawing Severity Rating: WNL Objective Formal/Standardized Tests [facility] Mental Status ([facility]) Results 28/30, within normal range of function Oral Motor/Speech Production Within Normal Limits Impression Patient is a pleasant 81 y/o female who was admitted to the ARU s/p carotid surgery. Patient was given the UMS with a score of 28/30 obtained. The score is within the normal range of function and does not indicate the need for further ST at this time. Speech Patient Assess Expression of Ideas/Wants: Expression (4) Understanding Verbal Content: Understands (4) Brief Interview-Mental Status: Yes Repetition of Three Words: Three (3) Temporal Orientation: Year: Correct (3) Temporal Orientation: Month: Accurate within 5 days(2) Temporal Orientation: Day: Correct (1) Recall : Wear to say "Sock": Yes, no cue required (2) Recall : Color: Yes, no cue required (2) Recall : Bed: Yes,after cueing (1) Memory/Recall Ability: Current season, Location of own room, Staff names and faces, That he or she is in a hsp/hsp unit Speech-Plan Patient/Family Goals Patient/Family Goals: Patient plans on returning to her home where she lives alone. She has many friends who will support her as needed. Treatment Plan Speech Therapy Treatment Plan: Discontinue ST Treatment Duration: May 28, 2021 Frequency: 1 time per week Estimated Hrs Per Day: .5 hour per day Rehab Potential: Fair Barriers to Learning: No cognitive deficits noted Pt/Family Agrees to Plan: Yes Safety Risks/Education Teaching Recipient: Patient, Significant Other Response to Teaching: Verbalize Understanding Education Topics Provided: Safety within her room, communication of wants/needs Time Speech Therapy Time In: 14:50 Speech Therapy Time Out: 15:20 Total Billed Time: 30 Billed Treatment Time 1, YURIY BARFIELD [address] ST May 28, 2021 15:32
--- NOTE | 2021-05-28 16:19 | PM&R Post Admission Assessment ---
PM&R HP Date of Visit: May 28, 2021 Time of Visit: 16:30 History of Present Illness CC: Recovery from AFIB with RVR and right carotid endarterectomy HPI: This is an 81[address] Gomez who was in inpatient rehab December of 2019 who has a past medical history of AFIB with RVR recently s/p cardioversion and underwent a right carotid endarterectomy, POD# [address] Estes. She has a history of HTN, AFIB, chronic hip and back pain, hypothyroidism and frail status but she previously was independent without assistive device and her goal is to return back home alone. Past Uighoyx-Qnlfbu-Gdggny Hx Past Med/Social Hx: Reviewed Nursing Past Med/Soc Hx, Reviewed and Corrections made Patient Social History Marrital Status: single Employed/Student: retired Alcohol Use: Denies Use Smoking Status: Never a Smoker Former Smoker, Quit: Nov 26, 1984 Recent Hopitalizations: No Immunizations Up To Date Tetanus Booster (TDap): Unknown Date of Pneumonia Vaccine: Jan 13, 2016 Date of Influenza Vaccine: May 28, 2021 Seasonal Allergies Seasonal Allergies: No Past Medical History Surgeries: Vascular Surgery (Right carotid endarterectomy) Currently Using CPAP: No Currently Using BIPAP: No Cardiac: Atrial Fibrillation, Chronic Edema/Swelling, Hypertension Reproductive: No Genitourinary: Kidney Infection, Bladder Infection Musculoskeletal: Scoliosis Endocrine: Hypothyroidsim HEENT: Cataract Loss of Vision: Bilateral Hearing Impairment: Hard of Hearing Psychosocial: Sleep Difficulties, Anxiety History of Blood Disorders: No Adverse Reaction to Blood Drake: No Family History Asthma Colon cancer Deafness or hearing loss Diabetes mellitus Hypertension Neoplasm Thyroid disease Prior Level of Function Bed Mobility: 6 Transfers: 6 Gait: 6 Stairs: 6 Indoor Mobility (Ambulation): Independent Stairs: Independent Self Care: Independent Functional Cognition: Independent Occupation: retired. Current Level of Fuctioning Roll Left to Right: 6 Sit to Lyin Lying to Sitting/Side of Bed: 4 Sit to Stand: 4 Chair/Hrr-ab-Kojik Xfer: 4 Car Transfer: 4 Does the Patient Walk: Yes Mode of Locomotion: Walk Anticipated Mode of Locomotion: Walk Walk 10 feet: 4 Walk 50 ft with 2 Turns: 4 Walk 150 ft: 4 Walking 10ft on uneven surface: 4 Gait Assistive Device: FWW Wheel 50 ft with 2 turns: 9 Wheel 150 ft: 9 #of Steps: 4 1 Step (curb): 4 4 Steps: 4 12 Steps: 88 Picking up an Object: 4 Eatin Oral Hygiene: 4 Shower/Bathe Self: 4 Upper Body Dressin Lower Body Dressin On/Off Footwear: 5 Toileting Hygiene: 4 PM&R Allergy/Meds/Data Review Allergies Coded Allergies: codeine (Unverified Allergy, Mild, Vomiting, 05/28/21) adhesive tape (Unverified Allergy, Unknown, 11/27/15) amoxicillin (Unverified Allergy, Unknown, 11/27/15) Home Medications Scheduled Apixaban (Eliquis), 5 MG PO BID, (Reported) Aspirin (Aspirin EC), 81 MG PO HS, (Reported) Carboxymethyl/Gly/Poly80/Pf (Refresh Optive Abdiaziz-3 Drops), 1 DROP OU TID, (Reported) Carboxymethylcellulose Sodium (Refresh Liquigel), 1 DROP OU BID, (Reported) Cetirizine HCl (Cetirizine HCl), 10 MG PO DAILY, (Reported) Cholecalciferol (Vitamin D3) (Vitamin D3), 25 MCG PO HS, (Reported) Cholecalciferol (Vitamin D3) (Vitamin D3), 50 MCG PO DAILY, (Reported) Cyanocobalamin (Vitamin B-12) (Vitamin B-12), 500 MCG PO DAILY, (Reported) Diltiazem HCl (Diltiazem ER), 240 MG PO DAILY, (Reported) Docusate Sodium (Docusate Sodium), 100 MG PO HS, (Reported) Doxazosin Mesylate (Doxazosin Mesylate), 1 MG PO BID, (Reported) Lactobacillus Rhamnosus GG (Culturelle), 1 EACH PO HS, (Reported) Levothyroxine Sodium (Levothyroxine Sodium), 88 MCG PO DAILY, (Reported) Magnesium Oxide (Magnesium), 400 MG PO Q48H, (Reported) Simvastatin (Simvastatin), 20 MG PO HS, (Reported) Scheduled PRN Acetaminophen (Tylenol), 325 MG PO Q6H PRN for PAIN-MILD (1-4), (Reported) Fluticasone Propionate (Flonase Allergy Relief), 2 SPRAY NSEACH HS PRN for ALLERGY SYMPTOMS, (Reported) Menthol (Biofreeze), 1 APPLIC TP TID PRN for ARTHRITIS, (Reported) Sodium Chloride/Aloe Vera ([place] Saline Nasal Gel), 1 APPLIC NS BID PRN for ALLERGY SYMPTOMS, (Reported) [Magic Mouthwash], 15 ML QID PRN for MOUTH PAIN, (Reported) Discontinued Medications Amiodarone HCl (Amiodarone HCl), 200 MG PO DAILY Discontinued Reason: No Longer Taking Amiodarone HCl (Amiodarone HCl), 200 MG PO DAILY Discontinued Reason: No Longer Taking Apixaban (Eliquis), 5 MG PO BID Discontinued Reason: No Longer Taking Apixaban (Eliquis), 5 MG PO BID Discontinued Reason: Duplicate Order Aspirin (Aspirin EC), 81 MG PO HS, (Reported) Discontinued Reason: No Longer Taking Carboxymethylcellulos/Glycerin (Refresh Optive Gel Eye Drops), 1-2 DROPS OU TID, (Reported) Discontinued Reason: No Longer Taking Carboxymethylcellulose Sodium (Refresh Liquigel), 1-2 DROPS OU BID, (Reported) Discontinued Reason: No Longer Taking Cetirizine HCl (Zyrtec), 10 MG PO DAILY, (Reported) Discontinued Reason: No Longer Taking Diltiazem HCl (Diltiazem 24Hr ER), 120 MG PO DAILY Discontinued Reason: Duplicate Order Diltiazem HCl (Diltiazem 24Hr ER), 120 MG PO DAILY Discontinued Reason: Duplicate Order Furosemide (Furosemide), 20 MG PO DAILY Discontinued Reason: No Longer Taking Levothyroxine Sodium (Synthroid), 75 MCG PO DAILY, (Reported) Discontinued Reason: No Longer Taking Levothyroxine Sodium (Synthroid), 75 MCG PO DAILY@0630 Discontinued Reason: No Longer Taking Potassium Chloride (Klor-Con M20), 40 MEQ PO DAILY@0600 Discontinued Reason: No Longer Taking Current Medications Current Medications Reviewed Review of Systems Constitutional: see HPI, weakness EENTM: no symptoms reported Respiratory: dyspnea on exertion Cardiovascular: no symptoms reported Gastrointestinal: no symptoms reported Genitourinary: no symptoms reported Musculoskeletal: back pain, joint pain Skin: no symptoms reported Psychiatric/Neurological: Anxiety All Other Systems Reviewed Negative Unless Noted: Yes Physical Exam Physical Exam Vital Signs Vital Signs - First Documented 05/28/21 14:54 Temp 37.8 Pulse 80 Resp 16 B/P (MAP) 134/61 (85) Pulse Ox 95 O2 Delivery Room Air Capillary Refill : Height, Weight, BMI Height: 5'3.50" Weight: 157lbs. 0.9oz. [id number]; 25.15 BMI Method: General Appearance: No Apparent Distress, WD/WN, Anxious, Chronically ill Eyes: Bilateral Eye Normal Inspection, Bilateral Eye PERRL HEENT: PERRL/EOMI, Normal ENT Inspection, Pharynx Normal Neck: Full Range of Motion, Normal Inspection, Non Tender, Supple, Carotid Bruit Respiratory: Chest Non Tender, Lungs Clear, Normal Breath Sounds, No Accessory Muscle Use, No Respiratory Distress Cardiovascular: Regular Rate, Rhythm, No Edema, No Gallop, No JVD, No Murmur, Normal Peripheral Pulses Gastrointestinal: Normal Bowel Sounds, No Organomegaly, No Pulsatile Mass, Non Tender, Soft Back: Normal Inspection, No CVA Tenderness, No Vertebral Tenderness Extremity: Normal Capillary Refill, Normal Inspection, Normal Range of Motion, Non Tender, No Calf Tenderness, No Pedal Edema Neurologic/Psychiatric: Alert, Oriented x3, No Motor/Sensory Deficits, Normal Mood/Affect Skin: Normal Color, Warm/Dry, Other (Right carotid endarterectomy incision line) Lymphatic: No Adenopathy PM&R Medical Assessment & Plan REHAB/MEDICAL ASSESSMENT AND PLAN: REHAB IMPAIRMENT GROUP: Debility ETIOLOGIC DIAGNOSIS: Debility The comorbidities that impact the patients function and/or functional outcome by: Impulsive, fall risk, advanced age, nocturnal hypoxia, atrial fibrillation REHAB PLAN: The patient is being admitted to our comprehensive inpatient rehabilitation facility and can tolerate the intensity of service consisting of at least: 180 minutes of therapy a day, 5 out of 7 days a week Rehab treatment will consist of: PT and OT will focus on regaining function with the use of assistive devices in order to return home to independent living The patient/family has a good understanding of our discharge process and will benefit from an interdisciplinary inpatient rehabilitation program. The patient has potential to make improvement and is in need of at least two of the f ollowing multidisciplinary therapies including but not limited to physical, occupational, speech, and prosthetics and orthotics. Additionally the patient will need services from respiratory, nutritional services, wound care, psychology, etc. (Customize this to each patient). Given the patients complex condition and risk of further medical complications, rehabilitation services ca nnot be safely or effectively provided at a lower level of care such as a assisted facility. BARRIERS TO DISCHARGE: Advanced age and lives alone ESTIMATED LOS: 7 days DISPOSITION: Home RELEVANT CHANGES SINCE PREADMISSION SCREENING: I have compared the patients medical and functional status at the time of the preadmission screening and there are: No changes PROGNOSIS: Good REHABILITATION GOALS: 1. PT and OT will focus on regaining function with the use of assistive devices in order to return home to independent living All the above goals were reviewed with the patient and he/she is in agreement. By signing this document, I acknowledge that I have personally performed a full physical examination on this patient within 24 hours of admission to this inpatient rehabilitation facility and have determined the patient to be able to tolerate the above course of treatment at an intensive level for a reasonable period of time. I will be completing a detailed individualized Plan of Care for this patient by day #4 of the patients stay based upon the Preadmission Screen, the Post-Admission Evaluation, and the therapy evaluations. Admission Dx/Comorbidities: (1) History of right-sided carotid endarterectomy ICD Codes: Z98.890 - Other specified postprocedural states (2) Debility ICD Codes: R53.81 - Other malaise (3) Atrial fibrillation status post cardioversion ICD Codes: I48.91 - Unspecified atrial fibrillation (4) Hypertension Status: Acute ICD Codes: I10 - Essential (primary) hypertension Assessment/Plan Assessment and Plan Assess & Plan/Chief Complaint Assessment: Debility with weakness Right carotid endarterectomy AF w/RVR s/p cardioversion CHF diastolic type BCC hx Hypoxia uses oxygen at night chronically Fall risk Impulsive and high risk for falls Plan: Home meds Cardiology consult Inpatient rehab protocol ELVA BEAUCHAMP DO May 28, 2021 16:19
[2021-05-28] MEDS ORDERED: SOD CHL GEL 0.5 OZ (AYR SALINE NASAL GEL) TUBE NS PRN (16:30)
[2021-05-28] MEDS ORDERED: NON-FORMULARY MEDICATION 1 EA EA (Magnesium Oxide (Magnesium) 400 MG) PO SCH (16:30)
[2021-05-28] MEDS ORDERED: MAGIC MOUTHWASH PRN (16:30)
[2021-05-28] MEDS ORDERED: NON-FORMULARY MEDICATION 1 EA EA (Menthol (Biofreeze) 1 APPLIC) TP PRN (16:30)
[2021-05-28] MEDS ORDERED: NON-FORMULARY MEDICATION 1 EA EA (Fluticasone Propionate (Flonase Allergy Relief) 2 SPRAY) NSEACH PRN (16:30)
[2021-05-28] MEDS ORDERED: [UNRECOGNIZED DRUG - OTHER] PO PRN ×3 (16:45)
[2021-05-28] MEDS ORDERED: NYSTATIN PO PRN ×3 (16:45)
[2021-05-28] MEDS ORDERED: FLUTICASONE NASAL SPRAY (FLONASE) 16 GM BTL NS PRN (16:45)
[2021-05-28] MEDS ORDERED: DIPHENHYDRAMINE PO PRN ×3 (16:45)
[2021-05-28 19:50] VITALS: BP 134/64
[2021-05-28] MEDS ORDERED: GLY OU SCH (21:00)
[2021-05-28] MEDS ORDERED: [UNRECOGNIZED DRUG - OTHER] OU SCH (21:00)
[2021-05-28] MEDS ORDERED: CARBOXYMETHYLCELLULOSE SODIUM OU SCH (21:00)
[2021-05-28] MEDS ORDERED: NON-FORMULARY MEDICATION 1 EA EA (Cholecalciferol (Vitamin D3) (Vitamin D3) 25 MCG) PO SCH (21:00)
[2021-05-28] MEDS ORDERED: POLY80 OU SCH (21:00)
[2021-05-28] MEDS ORDERED: NON-FORMULARY MEDICATION 1 EA EA (Docusate Sodium 100 MG) PO SCH (21:00)
[2021-05-28] MEDS ORDERED: SIMvastatin 20 MG (ZOCOR) TAB PO SCH (21:00)
[2021-05-28] MEDS ORDERED: DOCUSATE SODIUM 100 MG (COLACE) CAP PO SCH (21:00)
[2021-05-28] MEDS ORDERED: NON-FORMULARY MEDICATION 1 EA EA (Lactobacillus Rhamnosus GG (Culturelle) 1 EACH) PO SCH (21:00)
[2021-05-28] MEDS ORDERED: CARBOXYMETHYL OU SCH (21:00)
[2021-05-28] MEDS: ASPIRIN E.C. 81 MG (ECOTRIN) TAB PO SCH (21:10)
[2021-05-28] MEDS: AtorvaSTATin TABLET 10 MG TABLET PO SCH (21:10)
[2021-05-28] MEDS: DOCUSATE SODIUM 100 MG (COLACE) CAP PO SCH (21:11)
[2021-05-28] MEDS: doxAzosin 1 MG (CARDURA) TAB PO SCH (21:11)
[2021-05-28] MEDS: LACTOBACILLUS ACIDOPHILUS (PROBIOTIC) CAPSULE PO SCH (21:11)
[2021-05-28] MEDS: VITAMIN D3 25 MCG (1,000 UNITS) TABLET PO SCH (21:11)
[2021-05-28] MEDS: ARTIFICAL TEARS 0.4 ML UNIT DOSE (REFRESH PLUS) OU SCH (21:11)
[2021-05-28] MEDS: APIXABAN 5 MG (ELIQUIS) TABLET PO SCH (21:12)
[2021-05-28] MEDS: HYDROcodone/APAP 5 MG/325 MG (LORTAB) TAB PO PRN (21:12)
[2021-05-28] MEDS: polyethylene glycoL POWDER 17 GM (MIRALAX) PACK PO SCH (21:23)
[2021-05-28] MEDS: SENNA W/DOCUSATE (SENOKOT S) TABLET PO SCH (21:23)
[2021-05-29] MEDS: HYDROcodone/APAP 5 MG/325 MG (LORTAB) TAB PO PRN ×3 (01:06→22:33)
--- NOTE | 2021-05-29 06:31 | PM&R Progress Note ---
Subjective HPI/CC On Admission Date Seen by Provider: May 29, 2021 Time Seen by Provider: 11:30 Subjective/Events-last exam 05/29/2021: Pt doing okay Had some nausea, received Zofran Biofreeze will be from her home supply Cough is noted but lungs are clear Cardiology will be consulted Review of Systems General: Fatigue, Malaise Neurological: Weakness Objective Exam Vital Signs Vital Signs Date Time Temp Pulse Resp B/P (MAP) Pulse Ox O2 Delivery O2 Flow Rate FiO2 05/29/21 21:00 91 Room Air 05/29/21 20:38 37.6 64 18 141/64 (89) 05/29/21 08:11 2.00 Capillary Refill : General Appearance: No Apparent Distress, WD/WN, Anxious, Chronically ill HEENT: PERRL/EOMI, Normal ENT Inspection, Pharynx Normal Neck: Full Range of Motion, Normal Inspection, Non Tender, Supple, Carotid Bruit Respiratory: Chest Non Tender, Lungs Clear, Normal Breath Sounds, No Accessory Muscle Use, No Respiratory Distress Cardiovascular: Regular Rate, Rhythm, No Edema, No Gallop, No JVD, No Murmur, Normal Peripheral Pulses Gastrointestinal: Normal Bowel Sounds, No Organomegaly, No Pulsatile Mass, Non Tender, Soft Back: Normal Inspection, No CVA Tenderness, No Vertebral Tenderness Extremity: Normal Capillary Refill, Normal Inspection, Normal Range of Motion, Non Tender, No Calf Tenderness, No Pedal Edema Neurologic/Psychiatric: Alert, Oriented x3, No Motor/Sensory Deficits, Normal Mood/Affect Skin: Normal Color, Warm/Dry, Other (Right carotid endarterectomy incision line) Lymphatic: No Adenopathy Results/Procedures Lab Laboratory Tests 05/29/21 05:27 Patient resulted labs reviewed. FIM Transfers Therapy Code Descriptions/Definitions Functional [place] Measure: 0=Not Assessed/NA 4=Minimal Assistance 1=Total Assistance 5=Supervision or Setup 2=Maximal Assistance 6=Modified [place] 3=Moderate Assistance 7=Complete IndependenceSCALE: Activities may be completed with or without assistive devices. 4-Bwkcmiayyf-fmlbdcf completes the activity by him/herself with no assistance from a helper. 5-Set-up or Clean-up Assistance-helper sets up or cleans up; patient completes activity. Mobile assists only prior to or following the activity. 4-Supervision or Touching Assistance-helper provides verbal cues and/or touching/steadying and/or contact guard assistance as patient completes activity. Assistance may be provided throughout the activity or intermittently. 3-Partial/Moderate Assistance-helper does LESS THAN HALF the effort. Mobile lifts, holds or supports trunk or limbs, but provides less than half the effort. 2-Substantial/Maximal Assistance-helper does MORE THAN HALF the effort. Mobile lifts or holds trunk or limbs and provides more than half the effort. 1-Rfivfhjmq-fgoolp does ALL the effort. Patient does none of the effort to complete the activity. Or, the assistance of 2 or more helpers is required for the patient to complete the activity. If activity was not attempted, code reason: 7-Patient Refused. 9-Not Applicable-not attempted and the patient did not perform the activity before the current illness, exacerbation or injury. 10-Not Attempted due to Environmental Limitations-(lack of equipment, weather restraints, etc.). 88-Not Attempted due to Medical Conditions or Safety Concerns. Roll Left to Right (QC): 6 Sit to Lying (QC): 4 Sit to Stand (QC): 4 Chair/Diu-cj-Entjg Xfer(QC): 4 Car Transfer (QC): 4 Gait Training Does the Patient Walk?: Yes Walk 10 feet (QC): 4 Walk 50 ft with 2 Turns(QC): 4 Walk 150 ft (QC): 4 Walking 10ft/uneven surface-QC: 4 Gait Assistive Device: FWW Wheelchair Training Wheel 50 ft with 2 turns (QC): 9 Wheel 150 ft (QC): 9 Stair Training #of Steps: 4 1 Step (curb) (QC): 4 4 Steps (QC): 4 12 Steps (QC): 88 Balance Picking up an Object (QC): 4 ADL-Treatment Eating (QC): 6 Oral Hygiene (QC): 4 Shower/Bathe Self (QC): 4 Upper Body Dressing (QC): 5 Lower Body Dressing (QC): 3 On/Off Footwear (QC): 5 Toileting Hygiene (QC): 4 Assessment/Plan Assessment and Plan Assess & Plan/Chief Complaint Assessment: Debility with weakness Right carotid endarterectomy AF w/RVR s/p cardioversion CHF diastolic type BCC hx Hypoxia uses oxygen at night chronically Fall risk Impulsive and high risk for falls Plan: Home meds Cardiology consult Inpatient rehab protocol 05/29/2021: Nausea treatment Rehab protocol (1) History of right-sided carotid endarterectomy (2) Debility (3) Atrial fibrillation status post cardioversion (4) Hypertension Status: Acute ELVA BEAUCHAMP DO May 29, 2021 06:31
--- NOTE | 2021-05-29 06:32 | Individualized Plan of Care ---
Individualized Plan of Care Rehab Nursing IPOC Order Admission Date May 28, 2021 at 13:24 Current Orders Orders Admission Order(Inpt,Obs,Sdc) (05/28/21 12:32) Vital Signs: Per Unit Policy ( 08,16,00 (05/28/21 12:32) Vasyl Saavedra (05/28/21 12:32) Sequential Compression Device (05/28/21 12:32) Steward/Stewardess Smoke Room-Inpt Rehab Con (05/28/21 12:32) Rehab Nursing Orders-Ipoc (05/28/21 12:32) Physical Therapy Rehab Orders (05/28/21 12:32) Occupational Therapy Rehab Ord (05/28/21 12:32) Speech Therapy Rehab Orders (05/28/21 12:32) Cbc With Automated Diff (05/29/21 06:00) Comprehensive Metabolic Panel (05/29/21 06:00) Precautions (Aru) (05/28/21 12:32) Weekly Weight WEEK (05/28/21 12:32) Rehab-Intensity Of Therapy (05/28/21 12:32) Initiate Admission Nursing Pro .admission (05/28/21 12:32) Alprazolam Tablet (Xanax Tablet) (05/28/21 12:45) Calcium Carbonate Chew Tablet (Antacid C (05/28/21 12:45) Diphenhydramine Tablet (Benadryl Tablet) (05/28/21 12:45) Docusate Sodium Capsule (Colace Capsule) (05/28/21 21:00) Docusate Sodium Capsule (Colace Capsule) (05/28/21 12:45) Bisacodyl Suppository (Dulcolax Supposit (05/28/21 12:45) Lactulose Oral Solution (Enulose Oral So (05/28/21 12:45) Na Phos/Na Biphos Enema (Fleet Enema Harshal (05/28/21 12:45) Loperamide Tablet (Imodium Tablet) (05/28/21 12:45) Melatonin Tablet (Melatonin Tablet) (05/28/21 12:45) Polyethylene Glycol Powder Pkt (Miralax (05/28/21 21:00) Ondansetron Oral Dissolve Tab (Zofran (05/28/21 12:45) Senna S Tablet (Senokot S Tablet) (05/28/21 21:00) Acetaminophen Tablet/Caplet (Tylenol T (05/28/21 12:45) Initiate Admission Nursing Pro .admission (05/28/21 12:32) Patient Visit (05/28/21 ) Exercise Therap, Ea 15 Min (05/28/21 ) Patient Visit (05/28/21 ) Speech Sound Lang Comp (05/28/21 ) Treat. Speech/Lang/Voice (05/28/21 ) Apixaban Tablet (Eliquis Tablet) (05/28/21 21:00) Aspirin Enteric Coated Tablet (Ecotrin T (05/28/21 21:00) Doxazosin Tablet (Cardura Tablet) (05/28/21 21:00) Levothyroxine Tablet (Synthroid Tablet) (05/29/21 06:30) Simvastatin Tablet (Zocor Tablet) (05/28/21 21:00) Sodium Chloride Nasal Gel ([place] Nasal Gel (05/28/21 16:30) (Nf) Carboxymethyl/Gly/Poly80/Pf (Refres (05/28/21 21:00) (Nf) Carboxymethylcellulose Sodium (Refr (05/28/21 21:00) (Nf) Cetirizine Hcl (05/29/21 09:00) (Nf) Cholecalciferol (Vitamin D3) (Vitam (05/28/21 21:00) (Nf) Cholecalciferol (Vitamin D3) (Vitam (05/29/21 09:00) (Nf) Cyanocobalamin (Vitamin B-12) (Bela (05/29/21 09:00) (Nf) Diltiazem Hcl (Diltiazem Er) (05/29/21 09:00) (Nf) Docusate Sodium (05/28/21 21:00) (Nf) Fluticasone Propionate (Flonase All (05/28/21 16:30) (Nf) Lactobacillus Rhamnosus Gg (Culture (05/28/21 21:00) (Nf) Magnesium Oxide (Magnesium) (05/28/21 16:30) (Nf) [Magic Mouthwash] (05/28/21 16:30) Docusate Sodium Capsule (Colace Capsule) (05/28/21 21:00) Diltiazem Cd 24 Hr Capsule (Cardizem Cd (05/29/21 09:00) Atorvastatin Tablet (Lipitor Tablet) (05/28/21 21:00) Cholecalciferol Capsule/Tablet (Vitamin (05/28/21 21:00) Cholecalciferol Capsule/Tablet (Vitamin (05/29/21 09:00) Loratadine Tablet (Claritin Tablet) (05/29/21 09:00) Lactobacillus Acidophilus Cap (Acidophil (05/28/21 21:00) Cyanocobalamin Tablet (Vitamin B-12 Tabl (05/29/21 07:00) Carboxymethylcell Ophth Soln (Refresh Pl (05/28/21 21:00) Magnesium Oxide Tablet (Mag Ox Tablet) (05/29/21 08:00) Heart Healthy (05/28/21 Dinner) Nystatin Susp For Compounding (Mycostati (05/28/21 16:45) Fluticasone Nasal [place] (Flonase Nasal S (05/28/21 16:45) Tramadol Tablet (Ultram Tablet) (05/28/21 17:00) Hydrocodone/Apap 5/325 Tablet (Lortab 5 (05/28/21 17:00) Patient May Use Own Med,Single (Patient (05/29/21 09:00) Patient's Own Med(Rx Use Only) (Patient' (05/29/21 09:15) Patient Visit (05/29/21 ) Functional Activities, Ea 15 (05/29/21 ) Gait Training, Ea 15 Min (05/29/21 ) Exercise Therap, Ea 15 Min (05/29/21 ) Consult Cardiology (05/29/21 12:13) Gabapentin Capsule/Tablet (Neurontin Cap (05/29/21 21:00) Potassium Chloride (Tablet) (K Dur Table (05/30/21 07:00) Furosemide Tablet (Lasix Tablet) (05/30/21 07:00) Rehab Nursing Orders: Ongoing Assess. of Cognitive Status, Ongoing Assess. of Function Status, Bladder Management, Bladder Scan, Bladder Training, Bowel Management, Bowel Training, Disease Management & Educaiton, DVT Prophylaxis, Fall Prevention, Fluid/Electrolyte/Nutrition Mgmt, Infection Prevention, Medication Management & Education, Management of Risks & Complications, Management of Skin Intergrity, Nutrition Management, Pain Management, Patient/Family Support, Safety Management, Wound Management Intensity of Therapy to be met Patient to be seen: Min.3h per day/5 of 7d PT IPOC Problem List: Activity Tolerance, Functional Strength, Safety, Balance, Gait, Transfer, Bed Mobility, ROM Treatment Plan: Continue Plan of Care Bed Mobility, Education, Functional Activity Samy, Functional Strength, Group Therapy, Gait, Safety, Therapeutic Exercise, Transfers Treatment Duration: Jun 18, 2021 Frequency: At least 5 of 7 days/Wk (IRF) Estimated Hrs Per Day: 1.5 hours per day OT IPOC Problems: Decreased Activ Tolerance, Decreased UE Strength, Impaired Funct Balance, Impaired I ADL's, Impaired Self-Care Skills OT Treatment, Training and Edu: Yes Plan of Care: ADL Retraining, Functional Mobility, Group Exercise/Act as Ind, UE Funct Exercise/Act Treatment Duration: Jun 20, 2021 Frequency: At least 5 of 7 days/Wk (IRF) Estimated Hrs Per Day: 1.[address] IPOC Speech Therapy Treatment Plan: Discontinue ST Treatment Duration: May 28, 2021 Frequency: 1 time per week Estimated Hrs Per Day: .5 hour per day Steward/Stewardess Smoke Room/Case Mgmt Steward/Stewardess Smoke Room/Case Managemen: Discharge Planning Dietitian/Motor Vehicle Inspector Dietitian/Motor Vehicle Inspector to monitor nutritional status and make changes and/or recommendations as needed and work with speech pathology on dietary upgrades as the occur. Physician IPOC Medical Issues being managed closely and that require the 24 hour availability of a physician: Reason A. fib with RVR status post cardioversion and right-sided carotid endarterectomy will place patient at risk for increased falls and will work on impulsivity with the use of assistive devices in order to return back home to independent living. Medical Issues: Bowel/Bladder Function, DVT Prophylaxis, Falls Precautions, Fluid/Electrolyte/Nutrition Balance, Infection Protection, Pain Management, Wound Care Brief Synthesis of Preadmission Screen, Post-Admission Evaluation, and Therapy Evaluations: PT and OT will focus on regaining function with use of assistive device in order to decrease risk for falls and work on impulsivity Medical Prognosis: Good Anticipated Length of Stay: 6 days ELVA BEAUCHAMP DO May 29, 2021 06:32
[2021-05-29 06:36] LABS: BASOPHILS % (AUTO) 0 % (0-10); EOSINOPHILS # (AUTO) 0.2 10^3/uL (0.0-0.3); EOSINOPHILS % (AUTO) 2 % (0-10); HEMATOCRIT 35 % (35-52); HEMOGLOBIN 11.5 g/dL (11.5-16.0); LYMPHOCYTES # (AUTO) 0.9 10^3/uL (1.0-4.0); LYMPHOCYTES % (AUTO) 12 % (12-44); MEAN CORPUSCULAR HEMOGLOBIN 32 pg (25-34); MEAN CORPUSCULAR HGB CONC 33 g/dL (32-36); MEAN CORPUSCULAR VOLUME 95 fL (80-99); MEAN PLATELET VOLUME 9.8 fL (9.0-12.2); MONOCYTES # (AUTO) 0.6 10^3/uL (0.0-1.0); MONOCYTES % (AUTO) 8 % (0-12); NEUTROPHILS # (AUTO) 6.2 10^3/uL (1.8-7.8); NEUTROPHILS % (AUTO) 78 % (42-75); PLATELET COUNT 168 10^3/uL (130-400); WHITE BLOOD COUNT 7.9 10^3/uL (4.3-11.0)
[2021-05-29] MEDS: LEVOTHYROXINE 88 MCG (LEVOTHORID) TAB PO SCH (06:38)
[2021-05-29] MEDS: CYANOCOBALAMIN 1,000 MCG (VITAMIN B-12) TABLET PO SCH (06:39)
[2021-05-29 07:02] LABS: ALBUMIN 3.8 GM/DL (3.2-4.5); BILIRUBIN,TOTAL 0.8 MG/DL (0.1-1.0); CALCIUM 8.8 MG/DL (8.5-10.1); CREATININE SERUM 0.68 MG/DL (0.60-1.30); POTASSIUM 3.8 MMOL/L (3.6-5.0); TOTAL PROTEIN 6.8 GM/DL (6.4-8.2)
[2021-05-29 08:11] VITALS: BP 159/73
[2021-05-29] MEDS ORDERED: NON-FORMULARY MEDICATION 1 EA EA (Cholecalciferol (Vitamin D3) (Vitamin D3) 50 MCG) PO SCH (09:00)
[2021-05-29] MEDS ORDERED: NON-FORMULARY MEDICATION 1 EA EA (Diltiazem HCl (Diltiazem ER) 240 MG) PO SCH (09:00)
[2021-05-29] MEDS: SENNA W/DOCUSATE (SENOKOT S) TABLET PO SCH ×2 (09:00→20:44)
[2021-05-29] MEDS: ARTIFICAL TEARS 0.4 ML UNIT DOSE (REFRESH PLUS) OU SCH ×3 (09:00→20:43)
[2021-05-29] MEDS ORDERED: NON-FORMULARY MEDICATION 1 EA EA (Cetirizine HCl 10 MG) PO SCH (09:00)
[2021-05-29] MEDS ORDERED: NON-FORMULARY MEDICATION 1 EA EA (Cyanocobalamin (Vitamin B-12) (Vitamin B-12) 500 MCG) PO SCH (09:00)
--- NOTE | 2021-05-29 09:07 | Occupational Ther Daily Note ---
OT Current Status-Daily Note Subjective Pt supine in bed. Pt agreeable to OT tx. Pt states being nauseous pre OT treatment. Mental Status/Objective Patient Orientation: Person, Place, Situation ADL-Treatment Therapy Code Descriptions/Definitions Functional [place] Measure: 0=Not Assessed/NA 4=Minimal Assistance 1=Total Assistance 5=Supervision or Setup 2=Maximal Assistance 6=Modified [place] 3=Moderate Assistance 7=Complete IndependenceSCALE: Activities may be completed with or without assistive devices. 8-Wwfjbxwfco-bqdydnn completes the activity by him/herself with no assistance from a helper. 5-Set-up or Clean-up Assistance-helper sets up or cleans up; patient completes activity. [place] assists only prior to or following the activity. 4-Supervision or Touching Assistance-helper provides verbal cues and/or touching/steadying and/or contact guard assistance as patient completes activity. Assistance may be provided throughout the activity or intermittently. 3-Partial/Moderate Assistance-helper does LESS THAN HALF the effort. [place] lifts, holds or supports trunk or limbs, but provides less than half the effort. 2-Substantial/Maximal Assistance-helper does MORE THAN HALF the effort. [place] lifts or holds trunk or limbs and provides more than half the effort. 8-Ntihqjtfl-goelnh does ALL the effort. Patient does none of the effort to complete the activity. Or, the assistance of 2 or more helpers is required for the patient to complete the activity. If activity was not attempted, code reason: 7-Patient Refused. 9-Not Applicable-not attempted and the patient did not perform the activity before the current illness, exacerbation or injury. 10-Not Attempted due to Environmental Limitations-(lack of equipment, weather restraints, etc.). 88-Not Attempted due to Medical Conditions or Safety Concerns. On/Off Footwear: 5 Other Treatment Pt supine in bed, transitioned to sitting EOB, donned footwear. Pt walks with FWW to therapy gym, SBA. Pt completed arm bike exercises BUE, 10 watt (light resistance), 11 mins, no rest breaks. OT/PT cotreat due to skill of 2 clinicians required which a rehabilitation worker could not perform in order to coordinate UE/LEs, decrease fall risk and due to pt's limitations in strength, activity tolerance, mobility/transfers. OT focused on UE placement, ADLs, cues for sequencing and safety, PT focused on LE placement, gross overall movement, and transfers/mobility. Pt transitioned from therapy gym to kitchen area using FWW, CGA. Pt worked on functional kitchen task, locating different rush bags in upper/lower cabinets x 2, using BUE, retort firer for lower cabinets and FWW, SBA, mod rest breaks needed. Once patient located beanbags, pt turned around and tossed beanbags into target area using LUE. Pt transitioned from kitchen area to room using FWW, SBA. Pt left with PT, all needs met. Education OT Patient Education: Correct positioning, Energy conservation, Modified ADL techniques, Progress toward Goal/Update tx plan, Rehab process Teaching Recipient: Patient Teaching Methods: Demonstration, Discussion Response to Teaching: Verbalize Understanding, Return Demonstration OT Short Term Goals Short Term Goals Time Frame: Jun 04, 2021 Shower/bathe self: 5 Lower body dressin Putting on/taking off footwear: 5 OT Territory Sales Manager Goals Territory Sales Manager Goals Time Frame: Jun 20, 2021 Eating (QC): 6 Oral Hygiene (QC): 6 Toileting Hygiene (QC): 6 Shower/Bathe Self (QC): 6 Upper Body Dressing (QC): 6 Lower Body Dressing (QC): 6 On/Off Footwear (QC): 6 Additional Goals: 1-Demonstrate ADL Tasks, 2-Verbalize Understanding, 3- ImproveStrength/Samy 1=Demonstrate adherence to instructed precautions during ADL tasks. 2=Patient will verbalize/demonstrate understanding of assistive devices/modifications for ADL. 3=Patient will improve strength/tolerance for activity to enable patient to perform ADL's. OT Education/Plan Problem List/Assessment Assessment: Decreased Activ Tolerance, Decreased UE Strength, Impaired Funct Balance, Impaired I ADL's, Impaired Self-Care Skills Discharge Recommendations Plan/Recommendations: Continue POC Treatment Plan/Plan of Care Patient would benefit from OT for education, treatment and training to promote independence in ADL's, mobility, safety and/or upper extremity function for ADL's. Plan of Care: ADL Retraining, Functional Mobility, Group Exercise/Act as Ind, UE Funct Exercise/Act Treatment Duration: Jun 20, 2021 Frequency: At least 5 of 7 days/Wk (IRF) Estimated Hrs Per Day: 1.5 hours per day Agreement: Yes Rehab Potential: Fair Time/GCodes Start Time: 08:45 Stop Time: 10:15 Total Time Billed (hr/min): 90 Billed Treatment Time OT tx x30', Cotreat x60' 1, EX (15), FA 5 (75') BERTRAM SCHULTZ OT May 29, 2021 09:07
[2021-05-29] MEDS ORDERED: BIOFREEZE TP PRN (09:15)
[2021-05-29] MEDS: LORATADINE (CLARITIN) 10 MG TAB PO SCH (10:25)
[2021-05-29] MEDS: VITAMIN D3 25 MCG (1,000 UNITS) TABLET PO SCH ×2 (10:25→20:44)
[2021-05-29] MEDS: APIXABAN 5 MG (ELIQUIS) TABLET PO SCH ×2 (10:25→20:44)
[2021-05-29] MEDS: doxAzosin 1 MG (CARDURA) TAB PO SCH ×2 (10:25→20:44)
[2021-05-29] MEDS: MAGNESIUM OXIDE (MAG-OX)400 MG TAB PO SCH (10:57)
[2021-05-29] MEDS: polyethylene glycoL POWDER 17 GM (MIRALAX) PACK PO SCH ×2 (10:58→20:45)
--- NOTE | 2021-05-29 11:05 | Physical Therapy Daily Note ---
PT Daily Note-Current Subjective Pt agreeable. Pt c/o nausea this am. Pt able to participate after anti-nausea med administered per nursing. Pt c/o (B) sciatica acting up, current pain level 210. Mental Status Patient Orientation: Person, Place, Situation Transfers SCALE: Activities may be completed with or without assistive devices. 3-Njnzpizonn-njgeyyd completes the activity by him/herself with no assistance from a helper. 5-Set-up or Clean-up Assistance-helper sets up or cleans up; patient completes activity. [place] assists only prior to or following the activity. 4-Supervision or Touching Assistance-helper provides verbal cues and/or touching/steadying and/or contact guard assistance as patient completes activity. Assistance may be provided throughout the activity or intermittently. 3-Partial/Moderate Assistance-helper does LESS THAN HALF the effort. [place] lifts, holds or supports trunk or limbs, but provides less than half the effort. 2-Substantial/Maximal Assistance-helper does MORE THAN HALF the effort. [place] lifts or holds trunk or limbs and provides more than half the effort. 3-Rswklhzfe-fblfcj does ALL the effort. Patient does none of the effort to complete the activity. Or, the assistance of 2 or more helpers is required for the patient to complete the activity. If activity was not attempted, code reason: 7-Patient Refused. 9-Not Applicable-not attempted and the patient did not perform the activity before the current illness, exacerbation or injury. 10-Not Attempted due to Environmental Limitations-(lack of equipment, weather restraints, etc.). 88-Not Attempted due to Medical Conditions or Safety Concerns. All transfers mod (I),pt lifting her legs into bed with hands. Weight Bearing 10# lifting restriction and no squatting Gait Training Gait Assistive Device: FWW Pt amb with FWW 1 x 125ft, 1 x 50ft CGA Treatments OT/PT cotreat due to skill of 2 clinicians required which a rehabilitation therapy aide could not perform in order to coordinate UE/LEs, decrease fall risk and due to pt's limitations in strength, activity tolerance, mobility/transfers. OT focused on UE placement, ADLs, cues for sequencing and safety, PT focused on LE placement, gross overall movement, and transfers/mobility. Pt transitioned from therapy gym to kitchen area using FWW, CGA. Pt worked on functional kitchen task, locating different rush bags in upper/lower cabinets x 2, using BUE, component technician for lower cabinets and FWW, SBA, mod rest breaks needed. Once patient located beanbags, pt turned around and tossed beanbags into target area using LUE. Pt transitioned from kitchen area to room using FWW, SBA. Pt performed LE ther ex: AP, LAQ x 20-30 each in sitting. PROM to (B) LE all planes, neural glides (B) LE, long leg distraction with IR/ER. Pt performed LTR 2 x 20 reps in supine. Pt positioned in supine with LE elevated on pillows and call light in reach post therapy. Assessment Current Status: Good Progress Pt endurance limited and requires rest breaks. Pt [place] well. Pt steady balance throuhhout the treatment. Pt back to bed with call light and all needs met. PT Short Term Goals Short Term Goals Time Frame: Jun 04, 2021 Roll Left & Right: 6 Sit to lyin Lying to sitting on side of be: 6 Sit to stand: 4 (SBA) Chair/vad-yk-jcmnh transfer: 4 (SBA) Walk 10 feet: 4 (SBA) Walk 50 feet with two turns: 4 (SBA) Walk 150 feet: 4 (SBA) 1 step (curb): 4 (SBA) 4 steps: 4 (SBA) PT Behavioral Health Specialist Goals Shelter Goals PT Shelter Goals Time Frame: Jun 18, 2021 Roll Left & Right (QC): 6 Sit to Lying (QC): 6 Lying-Sitting on Side/Bed(QC): 6 Sit to Stand (QC): 6 Chair/Fay-um-Jofxt Xfer(QC): 6 Toilet Transfer (QC): 6 Car Transfer (QC): 6 Does the Patient Walk: Yes Walk 10 feet (QC): 6 Walk 50ft with 2 Turns (QC): 6 Walk 150 ft (QC): 6 Walking 10ft on Uneven Surface: 6 1 Step (curb) (QC): 4 (SBA) 4 Steps (QC): 4 (SBA) 12 Steps (QC): 4 (SBA) Picking up an Object (QC): 6 Wheel 50 feet with 2 turns (QC: 9 Wheel 150 feet: 9 PT Plan Treatment/Plan Treatment Plan: Continue Plan of Care Treatment Plan: Bed Mobility, Education, Functional Activity Samy, Functional Strength, Group Therapy, Gait, Safety, Therapeutic Exercise, Transfers Treatment Duration: Jun 18, 2021 Frequency: At least 5 of 7 days/Wk (IRF) Estimated Hrs Per Day: 1.5 hours per day Patient and/or Family Agrees t: Yes Time/GCodes Time In: 915 Time Out: 1050 Total Billed Treatment Time: 95 Total Billed Treatment 1, Gait x 15', FA x 45', EX x 35' REGINE CRISTOBAL CPTA May 29, 2021 11:05
[2021-05-29] MEDS: PATIENT MAY USE OWN MED,SINGLE MED PO SCH (15:09)
--- NOTE | 2021-05-29 18:11 | Consultation-Cardiology ---
HPI-Cardiology Cardiology Consultation: Date of Consultation 05/29/2021 Date of Admission 05/28/2021 Attending Physician Melina Benjamin DO Admitting Physician Gena Poole DO Consulting Physician JAIRON MORRISSEY JR, MD HPI: Time Seen by a Provider: 18:06 Chief Complaint: Reason for consultation: Chronic heart failure with preserved ejection fraction I had the pleasure of seeing Tanna on the inpatient rehabilitation unit at [facility] in [place], [place] this afternoon. She normally follows with one of my partners. She has a history of paroxysmal atrial fibrillation, chronic heart failure with preserved ejection fraction, mitral regurgitation, pulmonary hypertension, carotid atherosclerosis, and hypertension among other issues. Earlier this week she was admitted to [facility] for elective right carotid endarterectomy. The surgery was uneventful. She was then transferred to our inpatient rehabilitation unit. While she was at the outside hospital, she developed bilateral lower extremity edema. As such, a cardiology consultation was requested. When I saw the patient this afternoon, she had just put on her compression stockings. She tells me that she took Lasix in the past but would frequently develop dehydration so the diuretic was discontinued. She has had a slight, nonproductive cough ever since the carotid endarterectomy earlier in the week. She denies chest discomfort, dyspnea, paroxysmal nocturnal dyspnea, insomnia, palpitations, lightheadedness, or syncope. Certain portions of this document may have been dictated utilizing voice recognition technology. Inherent to this technology, typographical and grammatical errors may exist. As much as I am diligent to identify and correct these mistakes, some errors may remain in the document. Review of Systems-Cardiology Review of Systems Other comments Review of 10 organ systems is as per the history of present illness, otherwise negative. All Other Systems Reviewed Negative Unless Noted: Yes CSL-Tsfuxz-Maqsaw Hx Patient Social History Marrital Status: single Employed/Student: retired Smoking Status: Never a Smoker Have you traveled recently?: No Alcohol Use?: No Pt feels they are or have been: No Immunizations Up To Date Tetanus Booster (TDap): Unknown Date of Pneumonia Vaccine: Jan 13, 2016 Date of Influenza Vaccine: May 28, 2021 Past Medical History PMH As described under Assessment. Family Medical History Family History: Asthma Colon cancer Deafness or hearing loss Diabetes mellitus Hypertension Neoplasm Thyroid disease Allergies and Home Medications Allergies Coded Allergies: codeine (Unverified Allergy, Mild, Vomiting, 05/28/21) adhesive tape (Unverified Allergy, Unknown, 11/27/15) amoxicillin (Unverified Allergy, Unknown, 11/27/15) Patient Home Medication List Home Medication List Reviewed: Yes Acetaminophen (Tylenol) 325 Mg Tablet, 325 MG PO Q6H PRN for PAIN-MILD (1-4), (Reported) Entered as Reported by: BROOKLYNN MAURICE on 05/28/211030 Last Action: Held Apixaban (Eliquis) 5 Mg Tablet, 5 MG PO BID, (Reported) Entered as Reported by: BROOKLYNN MAURICE on 05/28/211030 Last Action: Continued Aspirin (Aspirin EC) 81 Mg Tablet.dr, 81 MG PO HS, (Reported) Entered as Reported by: BROOKLYNN MAURICE on 05/28/211030 Last Action: Continued Carboxymethyl/Gly/Poly80/Pf (Refresh Optive Abdiaziz-3 Drops) 1 Each Droperette, 1 DROP OU TID, (Reported) Entered as Reported by: BROOKLYNN MAURICE on 05/28/211030 Last Action: Converted Carboxymethylcellulose Sodium (Refresh Liquigel) 15 Ml Drp.lq.gel, 1 DROP OU BID, (Reported) Entered as Reported by: BROOKLYNN MAURICE on 05/28/211030 Last Action: Converted Cetirizine HCl (Cetirizine HCl) 10 Mg Tablet, 10 MG PO DAILY, (Reported) Entered as Reported by: BROOKLYNN MAURICE on 05/28/211030 Last Action: Converted Cholecalciferol (Vitamin D3) (Vitamin D3) 25 Mcg Capsule, 25 MCG PO HS, (Reported) Entered as Reported by: BROOKLYNN MAURICE on 05/28/211030 Last Action: Converted Cholecalciferol (Vitamin D3) (Vitamin D3) 25 Mcg Capsule, 50 MCG PO DAILY, (Reported) Entered as Reported by: BROOKLYNN MAURICE on 05/28/211030 Last Action: Converted Cyanocobalamin (Vitamin B-12) (Vitamin B-12) 500 Mcg Tablet, 500 MCG PO DAILY, (Reported) Entered as Reported by: BROOKLYNN MAURICE on 05/28/211030 Last Action: Converted Diltiazem HCl (Diltiazem ER) 240 Mg Tab.er.24h, 240 MG PO DAILY, (Reported) Entered as Reported by: BROOKLYNN MAURICE on 05/28/211030 Last Action: Converted Docusate Sodium (Docusate Sodium) 100 Mg Tablet, 100 MG PO HS, (Reported) Entered as Reported by: BROOKLYNN MAURICE on 05/28/211030 Last Action: Converted Doxazosin Mesylate (Doxazosin Mesylate) 1 Mg Tablet, 1 MG PO BID, (Reported) Entered as Reported by: BROOKLYNN MAURICE on 05/28/211030 Last Action: Continued Fluticasone Propionate (Flonase Allergy Relief) 9.9 Ml Garretson.susp, 2 SPRAY NSEACH HS PRN for ALLERGY SYMPTOMS, (Reported) Entered as Reported by: BROOKLYNN MAURICE on 05/28/211030 Last Action: Converted Lactobacillus Rhamnosus GG (Culturelle) 1 Each Capsule, 1 EACH PO HS, (Reported) Entered as Reported by: BROOKLYNN MAURICE on 05/28/211030 Last Action: Converted Levothyroxine Sodium (Levothyroxine Sodium) 88 Mcg Tablet, 88 MCG PO DAILY, (Reported) Entered as Reported by: BROOKLYNN MAURICE on 05/28/211030 Last Action: Continued Magnesium Oxide (Magnesium) 400 Mg Tablet, 400 MG PO Q48H, (Reported) Entered as Reported by: BROOKLYNN MAURICE on 05/28/211030 Last Action: Converted Menthol (Biofreeze) 118 Ml Gel..ml., 1 APPLIC TP TID PRN for ARTHRITIS, (Reported) Entered as Reported by: BROOKLYNN MAURICE on 05/28/211030 Last Action: Converted Simvastatin (Simvastatin) 20 Mg Tablet, 20 MG PO HS, (Reported) Entered as Reported by: BROOKLYNN MAURICE on 05/28/211030 Last Action: Continued Sodium Chloride/Aloe Vera ([place] Saline Nasal Gel) 14.1 Gm Gel..gram., 1 APPLIC NS BID PRN for ALLERGY SYMPTOMS, (Reported) Entered as Reported by: BROOKLYNN MAURICE on 05/28/211030 Last Action: Continued [Magic Mouthwash] LIQUID, 15 ML QID PRN for MOUTH PAIN, (Reported) Entered as Reported by: BROOKLYNN MAURICE on 12/22/21 1031 Last Action: Converted Discontinued Medications Amiodarone HCl (Amiodarone HCl) 200 Mg Tablet, 200 MG PO DAILY Discontinued Reason: No Longer Taking Prescribed by: GENA POOLE on 12/07/19 105 Last Action: Discontinued Amiodarone HCl (Amiodarone HCl) 200 Mg Tablet, 200 MG PO DAILY Discontinued Reason: No Longer Taking Prescribed by: GENA POOLE on 12/18/19 1230 Last Action: Discontinued Apixaban (Eliquis) 5 Mg Tablet, 5 MG PO BID Discontinued Reason: No Longer Taking Prescribed by: GENA POOLE on 12/07/19 105 Last Action: Discontinued Apixaban (Eliquis) 5 Mg Tablet, 5 MG PO BID Discontinued Reason: Duplicate Order Prescribed by: GNEA POOLE on 12/18/19 1230 Last Action: Discontinued Aspirin (Aspirin EC) 81 Mg Tablet.dr, 81 MG PO HS, (Reported) Discontinued Reason: No Longer Taking Entered as Reported by: BROOKLYNN MAURICE on 12/04/19 1351 Last Action: Discontinued Carboxymethylcellulos/Glycerin (Refresh Optive Gel Eye Drops) 10 Ml Drops.gel, 1-2 DROPS OU TID, (Reported) Discontinued Reason: No Longer Taking Entered as Reported by: BROOKLYNN MAURICE on 12/04/19 1351 Last Action: Discontinued Carboxymethylcellulose Sodium (Refresh Liquigel) 15 Ml Drp.lq.gel, 1-2 DROPS OU BID, (Reported) Discontinued Reason: No Longer Taking Entered as Reported by: BROOKLYNN MAURICE on 12/04/19 1351 Last Action: Discontinued Cetirizine HCl (Zyrtec) 10 Mg Tablet, 10 MG PO DAILY, (Reported) Discontinued Reason: No Longer Taking Entered as Reported by: BROOKLYNN MAURICE on 12/04/19 1351 Last Action: Discontinued Diltiazem HCl (Diltiazem 24Hr ER) 120 Mg Cap.er.24h, 120 MG PO DAILY Discontinued Reason: Duplicate Order Prescribed by: GENA POOLE on 12/07/19 105 Last Action: Discontinued Diltiazem HCl (Diltiazem 24Hr ER) 120 Mg Cap.er.24h, 120 MG PO DAILY Discontinued Reason: Duplicate Order Prescribed by: GENA POOLE on 12/18/19 1230 Last Action: Discontinued Furosemide (Furosemide) 20 Mg Tablet, 20 MG PO DAILY Discontinued Reason: No Longer Taking Prescribed by: GENA POOLE on 12/18/19 1230 Last Action: Discontinued Levothyroxine Sodium (Synthroid) 75 Mcg Tablet, 75 MCG PO DAILY, (Reported) Discontinued Reason: No Longer Taking Entered as Reported by: BROOKLYNN MAURICE on 12/04/19 1351 Last Action: Discontinued Levothyroxine Sodium (Synthroid) 75 Mcg Tablet, 75 MCG PO DAILY@0630 Discontinued Reason: No Longer Taking Prescribed by: GENA POOLE on 12/18/19 1230 Last Action: Discontinued Potassium Chloride (Klor-Con M20) 20 Meq Tab.er.prt, 40 MEQ PO DAILY@0600 Discontinued Reason: No Longer Taking Prescribed by: GENA POOLE on 12/07/19 1054 Last Action: Discontinued Exam Vital Signs Vital Signs Date Time Temp Pulse Resp B/P (MAP) Pulse Ox O2 Delivery O2 Flow Rate FiO2 05/29/21 11:48 Room Air 05/29/21 08:11 36.0 86 18 159/73 (101) 97 2.00 Physical Exam General: Alert. No acute distress. Well nourished and appears stated age. Eye: Extraocular movements are intact. Conjunctivae are clear. There are no xanthelasma. HENT: Normocephalic. Atraumatic. Carotid pulsations 2/2 without bruits. Neck: Jugular venous pressure does not appear elevated. No thyromegaly appreciated. Respiratory: Lungs are clear to auscultation. Respirations are non-labored. Breath sounds are equal. Symmetrical chest wall expansion. Cardiovascular: Normal rate. Regular rhythm. 2/6 systolic ejection murmur. No gallop. Point of maximal impulse is not appear displaced. Good pulses equal in all extremities. 1+ bilateral pretibial edema with compression stockings in place. Gastrointestinal: Soft. Normal bowel sounds. Skin: Skin turgor is normal. There is no pallor. Right carotid endarterectomy site appears to be healing well. Musculoskeletal: No kyphosis or scoliosis appreciated. Neurologic: Alert and oriented to person, place, time. Cranial nerves 3-12 appear grossly intact. The patient has good motor tone strength in the upper and lower extremities bilaterally. Psychiatric: Cooperative. Appropriate mood & affect. Labs Laboratory Tests Test 05/29/21 05:27 Range/Units White Blood Count 7.9 4.3-11.0 10^3/uL Red Blood Count 3.62 L 3.80-5.11 10^6/uL Hemoglobin 11.5 11.5-16.0 g/dL Hematocrit 35 35-52 % Mean Corpuscular Volume 95 80-99 fL Mean Corpuscular Hemoglobin 32 25-34 pg Mean Corpuscular Hemoglobin Concent 33 32-36 g/dL Red Cell Distribution Width 12.2 10.0-14.5 % Platelet Count 168 130-400 10^3/uL Mean Platelet Volume 9.8 9.0-12.2 fL Immature Granulocyte % (Auto) 0 % Neutrophils (%) (Auto) 78 H 42-75 % Lymphocytes (%) (Auto) 12 12-44 % Monocytes (%) (Auto) 8 0-12 % Eosinophils (%) (Auto) 2 0-10 % Basophils (%) (Auto) 0 0-10 % Neutrophils # (Auto) 6.2 1.8-7.8 10^3/uL Lymphocytes # (Auto) 0.9 L 1.0-4.0 10^3/uL Monocytes # (Auto) 0.6 0.0-1.0 10^3/uL Eosinophils # (Auto) 0.2 0.0-0.3 10^3/uL Basophils # (Auto) 0.0 0.0-0.1 10^3/uL Immature Granulocyte # (Auto) 0.0 0.0-0.1 10^3/uL Sodium Level 136 135-145 MMOL/L Potassium Level 3.8 3.6-5.0 MMOL/L Chloride Level 103 98-107 MMOL/L Carbon Dioxide Level 21 21-32 MMOL/L Anion Gap 12 5-14 MMOL/L Blood Urea Nitrogen 13 7-18 MG/DL Creatinine 0.68 0.60-1.30 MG/DL Estimat Glomerular Filtration Rate 83 BUN/Creatinine Ratio 19 Glucose Level 90 70-105 MG/DL Calcium Level 8.8 8.5-10.1 MG/DL Corrected Calcium 9.0 8.5-10.1 MG/DL Total Bilirubin 0.8 0.1-1.0 MG/DL Aspartate Amino Transf (AST/SGOT) 46 H 5-34 U/L Alanine Aminotransferase (ALT/SGPT) 26 0-55 U/L Alkaline Phosphatase 59 40-136 U/L Total Protein 6.8 6.4-8.2 GM/DL Albumin 3.8 3.2-4.5 GM/DL Diagnosis/Problems Diagnosis/Problems (1) Chronic heart failure with preserved ejection fraction (HFpEF) Assessment & Plan: I suspect she has some lower extremity edema related to intravenous fluids given perioperatively at the outside facility. Have asked her to wear her compression stockings for the evening and them off tomorrow. If she still has edema tomorrow morning, I will give her a dose of intravenous Lasix. It was late in the day when I saw her so I will decided to hold off on giving her intravenous Lasix in the evening or this might keep her up for several hours urinating. (2) Paroxysmal atrial fibrillation Assessment & Plan: She seems to have been remaining in sinus rhythm as an outpatient. She is on apixaban for stroke prophylaxis. (3) Atherosclerosis of both carotid arteries Assessment & Plan: She is now status post right carotid endarterectomy. The site is healing well. (4) Mitral regurgitation Assessment & Plan: Her most recent echocardiogram from August 2020 only shows m ild mitral regurgitation. (5) Pulmonary hypertension Assessment & Plan: This is been mild in the past and is probably related to her advanced age and chronic heart failure. (6) Primary hypertension Assessment & Plan: Blood pressure is reasonably well controlled on the present combination of medications. These should be continued. (7) Mixed hyperlipidemia Assessment & Plan: Continue statin medication. JAIRON MORRISSEY JR, MD May 29, 2021 18:11
--- NOTE | 2021-05-29 18:30 | Consultation ---
History of Present Illness History of Present Illness Patient Consulted On(neo/time) 05/29/21 18:24 Date Seen by Provider: May 29, 2021 Time Seen by Provider: 18:24 History of Present Illness This is an 81 year old female with a history of hypertension and atrial fibrillation with RVR and Hypertension. She is S/P right carotid endarterectomy by Dr. Adams. She has been transferred to [facility] for acute inpatient rehab. She is currently sitting up in bed eating. She reports a poor appetite. She states her main pain is neuropathy in her legs. She also reports edema postoperatively. Allergies and Home Medications Allergies Coded Allergies: codeine (Unverified Allergy, Mild, Vomiting, 05/28/21) adhesive tape (Unverified Allergy, Unknown, 11/27/15) amoxicillin (Unverified Allergy, Unknown, 11/27/15) Patient Home Medication List Home Medication List Reviewed: Yes Acetaminophen (Tylenol) 325 Mg Tablet, 325 MG PO Q6H PRN for PAIN-MILD (1-4), (Reported) Entered as Reported by: BROOKLYNN MAURICE on 05/28/211030 Last Action: Held Apixaban (Eliquis) 5 Mg Tablet, 5 MG PO BID, (Reported) Entered as Reported by: BROOKLYNN MAURICE on 05/28/211030 Last Action: Continued Aspirin (Aspirin EC) 81 Mg Tablet.dr, 81 MG PO HS, (Reported) Entered as Reported by: BROOKLYNN MAURICE on 05/28/211030 Last Action: Continued Carboxymethyl/Gly/Poly80/Pf (Refresh Optive Abdiaziz-3 Drops) 1 Each Droperette, 1 DROP OU TID, (Reported) Entered as Reported by: BROOKLYNN MAURICE on 05/28/211030 Last Action: Converted Carboxymethylcellulose Sodium (Refresh Liquigel) 15 Ml Drp.lq.gel, 1 DROP OU BID, (Reported) Entered as Reported by: BROOKLYNN MAURICE on 05/28/211030 Last Action: Converted Cetirizine HCl (Cetirizine HCl) 10 Mg Tablet, 10 MG PO DAILY, (Reported) Entered as Reported by: BROOKLYNN MAURICE on 05/28/211030 Last Action: Converted Cholecalciferol (Vitamin D3) (Vitamin D3) 25 Mcg Capsule, 25 MCG PO HS, (Reported) Entered as Reported by: BROOKLYNN MAURICE on 05/28/211030 Last Action: Converted Cholecalciferol (Vitamin D3) (Vitamin D3) 25 Mcg Capsule, 50 MCG PO DAILY, ( Reported) Entered as Reported by: BROOKLYNN MAURICE on 05/28/211030 Last Action: Converted Cyanocobalamin (Vitamin B-12) (Vitamin B-12) 500 Mcg Tablet, 500 MCG PO DAILY, (Reported) Entered as Reported by: BROOKLYNN MAURICE on 05/28/211030 Last Action: Converted Diltiazem HCl (Diltiazem ER) 240 Mg Tab.er.24h, 240 MG PO DAILY, (Reported) Entered as Reported by: BROOKLYNN MAURICE on 05/28/211030 Last Action: Converted Docusate Sodium (Docusate Sodium) 100 Mg Tablet, 100 MG PO HS, (Reported) Entered as Reported by: BROOKLYNN MAURICE on 05/28/211030 Last Action: Converted Doxazosin Mesylate (Doxazosin Mesylate) 1 Mg Tablet, 1 MG PO BID, (Reported) Entered as Reported by: BROOKLYNN MAURICE on 05/28/211030 Last Action: Continued Fluticasone Propionate (Flonase Allergy Relief) 9.9 Ml [place].susp, 2 SPRAY NSEACH HS PRN for ALLERGY SYMPTOMS, (Reported) Entered as Reported by: BROOKLYNN MAURICE on 05/28/211030 Last Action: Converted Lactobacillus Rhamnosus GG (Culturelle) 1 Each Capsule, 1 EACH PO HS, (Reported) Entered as Reported by: BROOKLYNN MAURICE on 05/28/211030 Last Action: Converted Levothyroxine Sodium (Levothyroxine Sodium) 88 Mcg Tablet, 88 MCG PO DAILY, (Reported) Entered as Reported by: BROOKLYNN MAURICE on 05/28/211030 Last Action: Continued Magnesium Oxide (Magnesium) 400 Mg Tablet, 400 MG PO Q48H, (Reported) Entered as Reported by: BROOKLYNN MAURICE on 05/28/211030 Last Action: Converted Menthol (Biofreeze) 118 Ml Gel..ml., 1 APPLIC TP TID PRN for ARTHRITIS, (Reported) Entered as Reported by: BROOKLYNN MAURICE on 05/28/211030 Last Action: Converted Simvastatin (Simvastatin) 20 Mg Tablet, 20 MG PO HS, (Reported) Entered as Reported by: BROOKLYNN MAURICE on 05/28/21 1031 Last Action: Continued Sodium Chloride/Aloe Vera ([place] Saline Nasal Gel) 14.1 Gm Gel..gram., 1 APPLIC NS BID PRN for ALLERGY SYMPTOMS, (Reported) Entered as Reported by: BROOKLYNN MAURICE on 05/28/21 1031 Last Action: Continued [Magic Mouthwash] LIQUID, 15 ML QID PRN for MOUTH PAIN, (Reported) Entered as Reported by: BROOKLYNN MAURICE on 05/28/21 103 Last Action: Converted Discontinued Medications Amiodarone HCl (Amiodarone HCl) 200 Mg Tablet, 200 MG PO DAILY Discontinued Reason: No Longer Taking Prescribed by: GENA GROSSMAN on 12/07/19 1054 Last Action: Discontinued Amiodarone HCl (Amiodarone HCl) 200 Mg Tablet, 200 MG PO DAILY Discontinued Reason: No Longer Taking Prescribed by: GENA GROSSMAN on 12/18/19 1230 Last Action: Discontinued Apixaban (Eliquis) 5 Mg Tablet, 5 MG PO BID Discontinued Reason: No Longer Taking Prescribed by: GENA GROSSMAN on 12/07/19 1054 Last Action: Discontinued Apixaban (Eliquis) 5 Mg Tablet, 5 MG PO BID Discontinued Reason: Duplicate Order Prescribed by: GENA GROSMSAN on 12/18/19 1230 Last Action: Discontinued Aspirin (Aspirin EC) 81 Mg Tablet.dr, 81 MG PO HS, (Reported) Discontinued Reason: No Longer Taking Entered as Reported by: BROOKLYNN MAURICE on 12/04/19 1351 Last Action: Discontinued Carboxymethylcellulos/Glycerin (Refresh Optive Gel Eye Drops) 10 Ml Drops.gel, 1-2 DROPS OU TID, (Reported) Discontinued Reason: No Longer Taking Entered as Reported by: BROOKLYNN MAURICE on 12/04/19 135 Last Action: Discontinued Carboxymethylcellulose Sodium (Refresh Liquigel) 15 Ml Drp.lq.gel, 1-2 DROPS OU BID, (Reported) Discontinued Reason: No Longer Taking Entered as Reported by: BROOKLYNN MAURICE on 12/04/19 1351 Last Action: Discontinued Cetirizine HCl (Zyrtec) 10 Mg Tablet, 10 MG PO DAILY, (Reported) Discontinued Reason: No Longer Taking Entered as Reported by: BROOKLYNN MAURICE on 12/04/19 1351 Last Action: Discontinued Diltiazem HCl (Diltiazem 24Hr ER) 120 Mg Cap.er.24h, 120 MG PO DAILY Discontinued Reason: Duplicate Order Prescribed by: GENA GROSSMAN on 12/07/19 1054 Last Action: Discontinued Diltiazem HCl (Diltiazem 24Hr ER) 120 Mg Cap.er.24h, 120 MG PO DAILY Discontinued Reason: Duplicate Order Prescribed by: GENA GROSSMAN on 12/18/19 1230 Last Action: Discontinued Furosemide (Furosemide) 20 Mg Tablet, 20 MG PO DAILY Discontinued Reason: No Longer Taking Prescribed by: GENA GROSSMAN on 12/18/19 1230 Last Action: Discontinued Levothyroxine Sodium (Synthroid) 75 Mcg Tablet, 75 MCG PO DAILY, (Reported) Discontinued Reason: No Longer Taking Entered as Reported by: BROOKLYNN MAURICE on 12/04/19 1351 Last Action: Discontinued Levothyroxine Sodium (Synthroid) 75 Mcg Tablet, 75 MCG PO DAILY@0630 Discontinued Reason: No Longer Taking Prescribed by: GENA GROSSMAN on 12/18/19 1230 Last Action: Discontinued Potassium Chloride (Klor-Con M20) 20 Meq Tab.er.prt, 40 MEQ PO DAILY@0600 Discontinued Reason: No Longer Taking Prescribed by: GENA GROSSMAN on 12/07/19 1054 Last Action: Discontinued Past Iieewbn-Hcdsri-Mifwqa Hx Patient Social History Marrital Status: single, Employed/Student: retired Tobacco Use?: No Smoking Status: Never a Smoker Substance use?: No Alcohol Use?: No Pt feels they are or have been: No Immunizations Up To Date Date of Influenza Vaccine: May 28, 2021 First/Initial COVID19 Vaccinat: 06/29/20 Second COVID19 Vaccination Neo: 08/01/20 Tetanus Booster (TDap): Unknown Hepatitis A: No Hepatitis B: No Date of Pneumonia Vaccine: Jan 13, 2016 Seasonal Allergies Seasonal Allergies: No Current Status status: No status: No Advance Directives: Yes Communicates: Verbally Primary Language: Portuguese Preferred Spoken Language: Portuguese Is interpretation needed?: No Past Medical History Surgeries: Vascular Surgery (Right carotid endarterectomy) Pneumonia, COPD Currently Using CPAP: No Currently Using BIPAP: No Atrial Fibrillation, Chronic Edema/Swelling, Hypertension Kidney Infection, Bladder Infection Scoliosis Hypothyroidsim Cataract Loss of Vision: Bilateral Hearing Impairment: Hard of Hearing Sleep Difficulties, Anxiety Blood Disorders: No Adverse Reaction/Blood Tranf: No Family Medical History Asthma Colon cancer Deafness or hearing loss Diabetes mellitus Hypertension Neoplasm Thyroid disease Review of Systems Review of Systems General: Appetite HEENT: No Head Aches, No Visual Changes, No Eye Pain, No Ear Pain, No Dysphasia, No Sinus Congestion, No Post Nasal Drip, No Sore Throat, No Other Pulmonary: Cough Gastrointestinal: Nausea Genitourinary: No Dysuria, No Frequency, No Incontinence, No Hematuria, No Retention, No Other Musculoskeletal: leg pain Neurological: Weakness All Other Systems Reviewed All Other Systems Reviewed: Yes Physical Exam Vital Signs Vital Signs - First Documented 05/28/21 05/29/21 14:54 07:28 Temp 37.8 Pulse 80 Resp 16 B/P (MAP) 134/61 (85) Pulse Ox 95 O2 Delivery Room Air O2 Flow Rate 2.00 Capillary Refill : Height, Weight, BMI Height: 5'3.50" Weight: 157lbs. 0.9oz. [id number]; 25.15 BMI Method: General Appearance: No Apparent Distress HEENT: Other (MM dry) Neck: Supple, Other (right lateral neck with swellinb but wound edges well approximated and healing well) Respiratory: Lungs Clear, Decreased Breath Sounds (bases) Cardiovascular: Regular Rate, Rhythm, Systolic Murmur, Gallop/S4 Gastrointestinal: Normal Bowel Sounds, Non Tender, Soft Rectal: Deferred Back: No CVA Tenderness Extremity: Non Tender, No Calf Tenderness, Pedal Edema Neurologic/Psychiatric: Alert, Oriented x3 Skin: Warm/Dry, Other (right neck wound as above--healing well with no oozing or surrounding erythema) Comments Laboratory Tests 05/29/21 05:27: White Blood Count 7.9, Red Blood Count 3.62L, Hemoglobin 11.5, Hematocrit 35, Mean Corpuscular Volume 95, Mean Corpuscular Hemoglobin 32, Mean Corpuscular Hemoglobin Concent 33, Red Cell Distribution Width 12.2, Platelet Count 168, Mean Platelet Volume 9.8, Immature Granulocyte % (Auto) 0, Neutrophils (%) (Auto) 78H, Lymphocytes (%) (Auto) 12, Monocytes (%) (Auto) 8, Eosinophils (%) (Auto) 2, Basophils (%) (Auto) 0, Neutrophils # (Auto) 6.2, Lymphocytes # (Auto) 0.9L, Monocytes # (Auto) 0.6, Eosinophils # (Auto) 0.2, Basophils # (Auto) 0.0, Immature Granulocyte # (Auto) 0.0, Sodium Level 136, Potassium Level 3.8, Chloride Level 103, Carbon Dioxide Level 21, Anion Gap 12, Blood Urea Nitrogen 13, Creatinine 0.68, Estimat Glomerular Filtration Rate 83, BUN/Creatinine Ratio 19, Glucose Level 90, Calcium Level 8.8, Corrected Calcium 9.0, Total Bilirubin 0.8, Aspartate Amino Transf (AST/SGOT) 46H, Alanine Aminotransferase (ALT/SGPT) 26, Alkaline Phosphatase 59, Total Protein 6.8, Albumin 3.8 Assessment/Plan Assessment/Plan Admission Dx 1. Right Carotid Artery Stenosis--S/P right carotid endarterectomy--wound healing well 2. History of Atrial Fibrillation with RVR--back on eliquis and cardizem, appears amiodarone has been discontinued on transfer, cardiology consulted 3. Hypertension--on cardizem and doxazosin 4. Post-op Edema--will given lasix and potassium in AM, continue compression hose 5. Bilateral Leg Neuropathy--add low dose gabapentin 6. Hypothyroidism--back on home thyroid dose I will follow along medically GENA GROSSMAN DO May 29, 2021 18:29
[2021-05-29 20:38] VITALS: BP 141/64
[2021-05-29] MEDS: GABAPENTIN 100 MG (NEURONTIN) CAP PO SCH (20:43)
[2021-05-29] MEDS: DOCUSATE SODIUM 100 MG (COLACE) CAP PO SCH (20:44)
[2021-05-29] MEDS: LACTOBACILLUS ACIDOPHILUS (PROBIOTIC) CAPSULE PO SCH (20:44)
[2021-05-29] MEDS: ASPIRIN E.C. 81 MG (ECOTRIN) TAB PO SCH (20:44)
[2021-05-29] MEDS: AtorvaSTATin TABLET 10 MG TABLET PO SCH (20:44)
[2021-05-30] MEDS: HYDROcodone/APAP 5 MG/325 MG (LORTAB) TAB PO PRN ×4 (03:18→20:46)
--- NOTE | 2021-05-30 06:10 | PM&R Progress Note ---
Subjective HPI/CC On Admission Date Seen by Provider: May 30, 2021 Time Seen by Provider: 12:15 Subjective/Events-last exam 05/30/2021: Patient short of breath Oxygen maintained Fully Covid vaccinated with booster including flu Checked labs completed septic work-up and chest x-ray all were negative 05/29/2021: Pt doing okay Had some nausea, received Zofran Biofreeze will be from her home supply Cough is noted but lungs are clear Cardiology will be consulted Review of Systems General: Fatigue, Malaise Pulmonary: Dyspnea, Cough Focused Exam Lactate Level 05/30/21 12:50: Lactic Acid Level 0.67 Lactic Acid Level Laboratory Tests Test 05/30/21 12:50 Lactic Acid Level 0.67 MMOL/L (0.50-2.00) Objective Exam Vital Signs Vital Signs Date Time Temp Pulse Resp B/P (MAP) Pulse Ox O2 Delivery O2 Flow Rate FiO2 05/30/21 10:26 37.4 05/30/21 08:22 Room Air 05/30/21 07:25 86 18 164/70 (101) 97 2.00 Capillary Refill : General Appearance: No Apparent Distress, WD/WN, Anxious, Chronically ill HEENT: PERRL/EOMI, Normal ENT Inspection, Pharynx Normal Neck: Full Range of Motion, Normal Inspection, Non Tender, Supple, Carotid Bruit Respiratory: Chest Non Tender, Lungs Clear, Normal Breath Sounds, No Accessory Muscle Use, No Respiratory Distress Cardiovascular: Regular Rate, Rhythm, No Edema, No Gallop, No JVD, No Murmur, Normal Peripheral Pulses Gastrointestinal: Normal Bowel Sounds, No Organomegaly, No Pulsatile Mass, Non Tender, Soft Rectal: Deferred Back: Normal Inspection, No CVA Tenderness, No Vertebral Tenderness Extremity: Normal Capillary Refill, Normal Inspection, Normal Range of Motion, Non Tender, No Calf Tenderness, No Pedal Edema Neurologic/Psychiatric: Alert, Oriented x3, No Motor/Sensory Deficits, Normal Mood/Affect Skin: Normal Color, Warm/Dry, Other (Right carotid endarterectomy incision line) Lymphatic: No Adenopathy Results/Procedures Lab Laboratory Tests 05/30/21 12:50 Patient resulted labs reviewed. FIM Transfers Therapy Code Descriptions/Definitions Functional [place] Measure: 0=Not Assessed/NA 4=Minimal Assistance 1=Total Assistance 5=Supervision or Setup 2=Maximal Assistance 6=Modified [place] 3=Moderate Assistance 7=Complete IndependenceSCALE: Activities may be completed with or without assistive devices. 6-Unzbpxfryc-wkqxkrf completes the activity by him/herself with no assistance from a helper. 5-Set-up or Clean-up Assistance-helper sets up or cleans up; patient completes activity. [place] assists only prior to or following the activity. 4-Supervision or Touching Assistance-helper provides verbal cues and/or touching/steadying and/or contact guard assistance as patient completes activity. Assistance may be provided throughout the activity or intermittently. 3-Partial/Moderate Assistance-helper does LESS THAN HALF the effort. [place] lifts, holds or supports trunk or limbs, but provides less than half the effort. 2-Substantial/Maximal Assistance-helper does MORE THAN HALF the effort. [place] lifts or holds trunk or limbs and provides more than half the effort. 5-Btzbqaalq-wziicx does ALL the effort. Patient does none of the effort to complete the activity. Or, the assistance of 2 or more helpers is required for the patient to complete the activity. If activity was not attempted, code reason: 7-Patient Refused. 9-Not Applicable-not attempted and the patient did not perform the activity before the current illness, exacerbation or injury. 10-Not Attempted due to Environmental Limitations-(lack of equipment, weather restraints, etc.). 88-Not Attempted due to Medical Conditions or Safety Concerns. Roll Left to Right (QC): 6 Sit to Lying (QC): 4 Sit to Stand (QC): 4 Chair/Ltl-yq-Gfgqp Xfer(QC): 4 Car Transfer (QC): 4 Gait Training Does the Patient Walk?: Yes Walk 10 feet (QC): 4 Walk 50 ft with 2 Turns(QC): 4 Walk 150 ft (QC): 4 Walking 10ft/uneven surface-QC: 4 Gait Assistive Device: FWW Wheelchair Training Wheel 50 ft with 2 turns (QC): 9 Wheel 150 ft (QC): 9 Stair Training #of Steps: 4 1 Step (curb) (QC): 4 4 Steps (QC): 4 12 Steps (QC): 88 Balance Picking up an Object (QC): 4 ADL-Treatment Eating (QC): 6 Oral Hygiene (QC): 4 Shower/Bathe Self (QC): 4 Upper Body Dressing (QC): 5 Lower Body Dressing (QC): 3 On/Off Footwear (QC): 5 Toileting Hygiene (QC): 4 Assessment/Plan Assessment and Plan Assess & Plan/Chief Complaint Assessment: Debility with weakness Right carotid endarterectomy AF w/RVR s/p cardioversion CHF diastolic type BCC hx Hypoxia uses oxygen at night chronically Fall risk Impulsive and high risk for falls Plan: Home meds Cardiology consult Inpatient rehab protocol 05/29/2021: Nausea treatment Rehab protocol 05/30/2021: Oxygen supplementation Septic work-up (1) Chronic heart failure with preserved ejection fraction (HFpEF) Assessment & Plan: I suspect she has some lower extremity edema related to intravenous fluids given perioperatively at the outside facility. Have asked her to wear her compression stockings for the evening and them off tomorrow. If she still has edema tomorrow morning, I will give her a dose of intravenous Lasix. It was late in the day when I saw her so I will decided to hold off on giving her intravenous Lasix in the evening or this might keep her up for several hours urinating. (2) Paroxysmal atrial fibrillation Assessment & Plan: She seems to have been remaining in sinus rhythm as an outpatient. She is on apixaban for stroke prophylaxis. (3) Atherosclerosis of both carotid arteries Assessment & Plan: She is now status post right carotid endarterectomy. The site is healing well. (4) Mitral regurgitation Assessment & Plan: Her most recent echocardiogram from August 2020 only shows mild mitral regurgitation. (5) Pulmonary hypertension Assessment & Plan: This is been mild in the past and is probably related to her advanced age and chronic heart failure. (6) Primary hypertension Assessment & Plan: Blood pressure is reasonably well controlled on the present combination of medications. These should be continued. (7) Mixed hyperlipidemia Assessment & Plan: Continue statin medication. ELVA BEAUCHAMP DO May 30, 2021 06:10
[2021-05-30] MEDS: LEVOTHYROXINE 88 MCG (LEVOTHORID) TAB PO SCH (06:56)
[2021-05-30] MEDS: CYANOCOBALAMIN 1,000 MCG (VITAMIN B-12) TABLET PO SCH (06:56)
[2021-05-30] MEDS ORDERED: FUROSEMIDE 40 MG (LASIX) TAB PO ONE (07:00)
[2021-05-30] MEDS ORDERED: FUROSEMIDE 40 MG/4 ML INJ (LASIX) IVP ONE (07:00)
[2021-05-30] MEDS ORDERED: KCL 20 MEQ TAB (K-DUR) PO ONE (07:00)
[2021-05-30] MEDS: LORATADINE (CLARITIN) 10 MG TAB PO SCH (07:18)
[2021-05-30] MEDS: APIXABAN 5 MG (ELIQUIS) TABLET PO SCH ×2 (07:18→20:45)
[2021-05-30] MEDS: doxAzosin 1 MG (CARDURA) TAB PO SCH ×2 (07:18→20:47)
[2021-05-30] MEDS: polyethylene glycoL POWDER 17 GM (MIRALAX) PACK PO SCH ×2 (07:18→20:49)
[2021-05-30] MEDS: SENNA W/DOCUSATE (SENOKOT S) TABLET PO SCH ×2 (07:19→20:45)
[2021-05-30] MEDS: ARTIFICAL TEARS 0.4 ML UNIT DOSE (REFRESH PLUS) OU SCH ×3 (07:19→20:45)
[2021-05-30] MEDS: VITAMIN D3 25 MCG (1,000 UNITS) TABLET PO SCH ×2 (07:19→20:47)
[2021-05-30 07:25] VITALS: BP 164/70
--- NOTE | 2021-05-30 08:36 | Cardiology Progress Note ---
Progress Note-Cardiology Events since last exam Date Seen by Provider: May 30, 2021 Time Seen by Provider: 08:31 Events since last exam I am seeing her due to heart failure. She remains on the inpatient rehabilitation unit. She was up early this morning working with physical therapy. This morning she feels somewhat short of breath. Her peripheral edema is about the same as yesterday. She did receive 1 dose of intravenous furosemide this morning. She denies chest discomfort, palpitations, or syncope. Certain portions of this document may have been dictated utilizing voice recognition technology. Inherent to this technology, typographical and grammatical errors may exist. As much as I am diligent to identify and correct these mistakes, some errors may remain in the document. Vitals Last set of Vitals Signs Vital Signs 05/30/21 05/30/21 07:25 08:22 Temp 37.2 Pulse 86 Resp 18 B/P (MAP) 164/70 (101) Pulse Ox 97 O2 Delivery Room Air O2 Flow Rate 2.00 Exam Vital Signs Vital Signs Date Time Temp Pulse Resp B/P (MAP) Pulse Ox O2 Delivery O2 Flow Rate FiO2 05/30/21 08:22 Room Air 05/30/21 07:25 37.2 86 18 164/70 (101) 97 2.00 Physical Exam General: Alert. No acute distress. Eye: No xanthelasma. HENT: Normocephalic. Neck: Jugular venous pressure does not appear elevated. Respiratory: Lungs are clear to auscultation. Respirations are non-labored. Breath sounds are equal. Symmetrical chest wall expansion. Cardiovascular: Normal rate. Regular rhythm. 2/6 systolic ejection murmur. No gallop. 1+ bilateral pretibial edema. Gastrointestinal: Soft. Normal bowel sounds. Skin: Warm. Dry. Neurologic: Alert and oriented to person, place, time. Cranial nerves 3-11 grossly intact. Psychiatric: Cooperative. Appropriate mood & affect. Diagnosis/Problems Diagnosis/Problems (1) Chronic heart failure with preserved ejection fraction (HFpEF) Assessment & Plan: I suspect she has some lower extremity edema related to intravenous fluids given perioperatively at the outside facility. She has now received 1 dose of intravenous Lasix. She is having some exertional dyspnea this morning during physical therapy. She is probably about class II-III at this point in time. We will reassess tomorrow to see if she needs any further diuretic. She was not taking diuretic at home because she has a tendency to develop dehydration. She should continue with compression stockings during the day. If she is still short of breath tomorrow, I may consider chest x-ray at that time. (2) Paroxysmal atrial fibrillation Assessment & Plan: She has been maintaining sinus rhythm as an outpatient on no antiarrhythmic drug. We will continue diltiazem for rate control in the event she has recurrent atrial fibrillation and apixaban for stroke prophylaxis. (3) Atherosclerosis of both carotid arteries Assessment & Plan: She is now status post right carotid endarterectomy. The site is healing well. She is on aspirin and statin medication. We may want to discontinue the aspirin in 1 month since she takes apixaban for the atrial fibrillation. This will help reduce the risk of hemorrhagic side effects in an octogenarian. (4) Primary hypertension Assessment & Plan: Blood pressure has been intermittently elevated in the past 24 hours. If this persists, we may need to make some adjustment to her antihypertensive medication. (5) Mitral regurgitation Assessment & Plan: Her most recent echocardiogram from August 2020 only shows mild mitral regurgitation. (6) Pulmonary hypertension Assessment & Plan: This is been mild in the past and is probably related to her advanced age and chronic heart failure. (7) Mixed hyperlipidemia Assessment & Plan: Continue statin medication. JAIRON MORRISSEY JR, MD May 30, 2021 08:36
--- NOTE | 2021-05-30 09:08 | Physical Therapy Daily Note ---
PT Daily Note-Current Subjective Pt. agrees to Rx. States she still doesnt feel well. Pt. has O2 on stating she usually wear it at night at home. Pt requests to have it off for PT and daytime. O2 sats checked at rest at EOB on rm air at 99%. Pain Numeric Pain Scale: 5-Moderate Pain Location: Left (and right ) Location Body Site: Hip Pain Description: Heavy Appearance edema noted bilat ankles and feet and proximal into hips and thighs, audible wheezy cough with activity Mental Status Attachments: Oxygen (2L) pt. confused with sequence of events and answers questions in scattered way, not reliable for accurate info Transfers SCALE: Activities may be completed with or without assistive devices. 7-Cbastcolgk-wqtecgn completes the activity by him/herself with no assistance from a helper. 5-Set-up or Clean-up Assistance-helper sets up or cleans up; patient completes activity. [place] assists only prior to or following the activity. 4-Supervision or Touching Assistance-helper provides verbal cues and/or touching/steadying and/or contact guard assistance as patient completes activity. Assistance may be provided throughout the activity or intermittently. 3-Partial/Moderate Assistance-helper does LESS THAN HALF the effort. [place] lifts, holds or supports trunk or limbs, but provides less than half the effort. 2-Substantial/Maximal Assistance-helper does MORE THAN HALF the effort. [place] lifts or holds trunk or limbs and provides more than half the effort. 7-Mvsaukuwa-gducbb does ALL the effort. Patient does none of the effort to complete the activity. Or, the assistance of 2 or more helpers is required for the patient to complete the activity. If activity was not attempted, code reason: 7-Patient Refused. 9-Not Applicable-not attempted and the patient did not perform the activity before the current illness, exacerbation or injury. 10-Not Attempted due to Environmental Limitations-(lack of equipment, weather restraints, etc.). 88-Not Attempted due to Medical Conditions or Safety Concerns. Roll Left & Right (QC): 6 Sit to Lying (QC): 6 Lying to Sitting/Side of Bed(Q: 6 Sit to Stand (QC): 5 Chair/Gdf-ht-Pgvxl Xfer(QC): 5 Weight Bearing 10# lifting restriction and no squatting Gait Training Does the Patient Walk?: Yes Walk 10 feet (QC): 4 Walk 50 ft with 2 Turns(QC): 4 Walk 150 ft (QC): 4 Gait Persons Needed: 1 Gait Assistive Device: FWW gait 160 ft to gym initially without O2 with min c/o from pat except for fatigue, but O2 sats check revealed 78% climbig back up slowly, O2 donned at 2L with quick increase to 98%, HR 78bpm. on walk back to room with O2 on sats stayed >90% Exercises Supine Ex: Ankle pumps, Quad Set, Rolling, Glut sets, Heel Slides, Straight leg raise, Hip abd/add Supine Reps: 12 NuStep Minutes: 8 NuStep Workload: 1 Treatments pt. c/o being very all over but aline in upper traps and bilat hips , while on Nustep pt was given massage to upper traps x 5 min. pt not tolerant of hamstring gentle stretches in supine, and poor tolerance of active SLR, pt. c/o fatigue throughout Rx Assessment Current Status: Fair Progress nursing consulted regarding all findings, as pt. c/o thirst, no sense of taste or smell , fatigue and apparently increasing edema PT Short Term Goals Short Term Goals Time Frame: Jun 04, 2021 Roll Left & Right: 6 Sit to lyin Lying to sitting on side of be: 6 Sit to stand: 4 (SBA) Chair/ezw-vh-dzvah transfer: 4 (SBA) Walk 10 feet: 4 (SBA) Walk 50 feet with two turns: 4 (SBA) Walk 150 feet: 4 (SBA) 1 step (curb): 4 (SBA) 4 steps: 4 (SBA) PT Handbell Choir Director Goals Handbell Choir Director Goals PT Handbell Choir Director Goals Time Frame: Jun 18, 2021 Roll Left & Right (QC): 6 Sit to Lying (QC): 6 Lying-Sitting on Side/Bed(QC): 6 Sit to Stand (QC): 6 Chair/Rcv-wh-Yecme Xfer(QC): 6 Toilet Transfer (QC): 6 Car Transfer (QC): 6 Does the Patient Walk: Yes Walk 10 feet (QC): 6 Walk 50ft with 2 Turns (QC): 6 Walk 150 ft (QC): 6 Walking 10ft on Uneven Surface: 6 1 Step (curb) (QC): 4 (SBA) 4 Steps (QC): 4 (SBA) 12 Steps (QC): 4 (SBA) Picking up an Object (QC): 6 Wheel 50 feet with 2 turns (QC: 9 Wheel 150 feet: 9 PT Plan Treatment/Plan Treatment Plan: Continue Plan of Care Treatment Plan: Bed Mobility, Education, Functional Activity Samy, Functional Strength, Group Therapy, Gait, Safety, Therapeutic Exercise, Transfers Treatment Duration: Jun 18, 2021 Frequency: At least 5 of 7 days/Wk (IRF) Estimated Hrs Per Day: 1.5 hours per day Patient and/or Family Agrees t: Yes Safety Risks/Education Patient Education: Gait Training, Transfer Techniques, Correct Positioning, Disease Process, Safety Issues Teaching Recipient: Patient Teaching Methods: Demonstration, Discussion Response to Teaching: Verbalize Understanding, Return Demonstration, Reinforcement Needed Time/GCodes Time In: 800 Time Out: 900 Total Billed Treatment Time: 60 Total Billed Treatment 1,GT15m,EX20m,FA25m DARION SANTIAGO ASSISTANT GROCERY May 30, 2021 09:08
--- NOTE | 2021-05-30 10:16 | Occupational Ther Daily Note ---
OT Current Status-Daily Note Subjective Pt up in recliner, agreeable to OT Tx but feels "Off" today. Mental Status/Objective Patient Orientation: Person, Place, Situation ADL-Treatment Therapy Code Descriptions/Definitions Functional [place] Measure: 0=Not Assessed/NA 4=Minimal Assistance 1=Total Assistance 5=Supervision or Setup 2=Maximal Assistance 6=Modified [place] 3=Moderate Assistance 7=Complete IndependenceSCALE: Activities may be completed with or without assistive devices. 1-Goirbzhsgf-oshtftr completes the activity by him/herself with no assistance from a helper. 5-Set-up or Clean-up Assistance-helper sets up or cleans up; patient completes activity. [place] assists only prior to or following the activity. 4-Supervision or Touching Assistance-helper provides verbal cues and/or touching/steadying and/or contact guard assistance as patient completes activity. Assistance may be provided throughout the activity or intermittently. 3-Partial/Moderate Assistance-helper does LESS THAN HALF the effort. [place] lifts, holds or supports trunk or limbs, but provides less than half the effort. 2-Substantial/Maximal Assistance-helper does MORE THAN HALF the effort. [place] lifts or holds trunk or limbs and provides more than half the effort. 9-Yxjrgtfgm-lkbmck does ALL the effort. Patient does none of the effort to comp lete the activity. Or, the assistance of 2 or more helpers is required for the patient to complete the activity. If activity was not attempted, code reason: 7-Patient Refused. 9-Not Applicable-not attempted and the patient did not perform the activity before the current illness, exacerbation or injury. 10-Not Attempted due to Environmental Limitations-(lack of equipment, weather restraints, etc.). 88-Not Attempted due to Medical Conditions or Safety Concerns. Eating (QC): 6 (IND with breakfast per pt report.) Shower/Bathe Self (QC): 4 (SBA in standing. Pt able to wash/dry all parts.) Upper Body Dressing (QC): 5 (set up assist.) Lower Body Dressing (QC): 4 (SBA with donning LE clothing.) On/Off Footwear: 3 (Min A. Pt able to doff socks and shoes. Assist to don compression socks, pt able to slip on shoes.) Toileting Hygiene (QC): 4 (SBA, pt able to manage clothing and perform hygiene. ) Toilet Transfer (QC): 4 (SBA on/off toilet.) Other Treatment Pt seated in recliner, agreeable to OT Tx. Pt used FWW to closet to gather clothes. Pt states she feels too tired to take a full shower, agreeable to sponge bath. Pt doffed clothes at recliner, states need to use toilet, transferred to toilet using FWW, SBA. Pt completed toileting, then transferred to [place] to complete sponge bath. Pt took frequent rest breaks during ADLs. Pt used FWW to transfer to recliner. In order to increase BUE Strength and activity tolerance, pt completed the following BUE exercises: 2x10 shoulder flexion, front punch, elbow flexion/extension, wrist flexion/extension and finger flexion/extension. Post tx, pt up in recliner, call light in reach and all needs met. Education OT Patient Education: Correct positioning, Energy conservation, Exercise program, Modified ADL techniques, Progress toward Goal/Update tx plan, Purpose of tx/functional activities, Rehab process, Safety issues, Transfer techniques Teaching Recipient: Patient Teaching Methods: Discussion Response to Teaching: Verbalize Understanding OT Short Term Goals Short Term Goals Time Frame: Jun 04, 2021 Shower/bathe self: 5 Lower body dressin Putting on/taking off footwear: 5 OT Copy Reader Goals Copy Reader Goals Time Frame: Jun 20, 2021 Eating (QC): 6 Oral Hygiene (QC): 6 Toileting Hygiene (QC): 6 Shower/Bathe Self (QC): 6 Upper Body Dressing (QC): 6 Lower Body Dressing (QC): 6 On/Off Footwear (QC): 6 Additional Goals: 1-Demonstrate ADL Tasks, 2-Verbalize Understanding, 3-ImproveStrength/Samy 1=Demonstrate adherence to instructed precautions during ADL tasks. 2=Patient will verbalize/demonstrate understanding of assistive devices/modifications for ADL. 3=Patient will improve strength/tolerance for activity to enable patient to perform ADL's. OT Education/Plan Problem List/Assessment Assessment: Decreased Activ Tolerance, Decreased UE Strength, Impaired Funct Balance, Impaired I ADL's, Impaired Self-Care Skills, Restricted Funct UE ROM Discharge Recommendations Plan/Recommendations: Continue POC Treatment Plan/Plan of Care Patient would benefit from OT for education, treatment and training to promote independence in ADL's, mobility, safety and/or upper extremity function for ADL's. Plan of Care: ADL Retraining, Functional Mobility, Group Exercise/Act as Ind, UE Funct Exercise/Act Treatment Duration: Jun 20, 2021 Frequency: At least 5 of 7 days/Wk (IRF) Estimated Hrs Per Day: 1.5 hours per day Agreement: Yes Rehab Potential: Fair Time/GCodes Start Time: 09:00 Stop Time: 10:30 Total Time Billed (hr/min): 90 Billed Treatment Time 1, ADL 5 (75'), EX (15') BERTRAM SCHULTZ OT May 30, 2021 10:16
--- NOTE | 2021-05-30 11:41 | Physical Therapy Daily Note ---
PT Daily Note-Current Subjective Pt. agrees to Rx but is very very fatigued , requests rest breaks Pain Numeric Pain Scale: 6 Location: Left (and right hip) Location Body Site: Hip Pain Description: Ache Mental Status Attachments: Oxygen Transfers SCALE: Activities may be completed with or without assistive devices. 1-Eyegewkcey-bkggyxj completes the activity by him/herself with no assistance from a helper. 5-Set-up or Clean-up Assistance-helper sets up or cleans up; patient completes activity. [place] assists only prior to or following the activity. 4-Supervision or Touching Assistance-helper provides verbal cues and/or touching/steadying and/or contact guard assistance as patient completes activity. Assistance may be provided throughout the activity or intermittently. 3-Partial/Moderate Assistance-helper does LESS THAN HALF the effort. [place] lifts, holds or supports trunk or limbs, but provides less than half the effort. 2-Substantial/Maximal Assistance-helper does MORE THAN HALF the effort. [place] lifts or holds trunk or limbs and provides more than half the effort. 1-Ohgnkpefs-qmqmal does ALL the effort. Patient does none of the effort to complete the activity. Or, the assistance of 2 or more helpers is required for the patient to complete the activity. If activity was not attempted, code reason: 7-Patient Refused. 9-Not Applicable-not attempted and the patient did not perform the activity befo re the current illness, exacerbation or injury. 10-Not Attempted due to Environmental Limitations-(lack of equipment, weather re straints, etc.). 88-Not Attempted due to Medical Conditions or Safety Concerns. sit to stand CGA x 1 Weight Bearing 10# lifting restriction and no squatting Exercises Supine Ex: Ankle pumps, Quad Set, Glut sets, Heel Slides, Short Arc Quads, Straight leg raise (assisted), Hip abd/add Supine Reps: 15 Treatments very slow with rest breaks Assessment Current Status: Fair Progress, Refused Treatment audible wheezing and coughing, O2 sats > 90% on 2 L at rest PT Short Term Goals Short Term Goals Time Frame: Jun 04, 2021 Roll Left & Right: 6 Sit to lyin Lying to sitting on side of be: 6 Sit to stand: 4 (SBA) Chair/tvj-qp-woatk transfer: 4 (SBA) Walk 10 feet: 4 (SBA) Walk 50 feet with two turns: 4 (SBA) Walk 150 feet: 4 (SBA) 1 step (curb): 4 (SBA) 4 steps: 4 (SBA) PT Registered Land Surveyor Goals Registered Land Surveyor Goals PT Registered Land Surveyor Goals Time Frame: Jun 18, 2021 Roll Left & Right (QC): 6 Sit to Lying (QC): 6 Lying-Sitting on Side/Bed(QC): 6 Sit to Stand (QC): 6 Chair/Nek-ji-Btzyl Xfer(QC): 6 Toilet Transfer (QC): 6 Car Transfer (QC): 6 Does the Patient Walk: Yes Walk 10 feet (QC): 6 Walk 50ft with 2 Turns (QC): 6 Walk 150 ft (QC): 6 Walking 10ft on Uneven Surface: 6 1 Step (curb) (QC): 4 (SBA) 4 Steps (QC): 4 (SBA) 12 Steps (QC): 4 (SBA) Picking up an Object (QC): 6 Wheel 50 feet with 2 turns (QC: 9 Wheel 150 feet: 9 PT Plan Treatment/Plan Treatment Plan: Continue Plan of Care Treatment Plan: Bed Mobility, Education, Functional Activity Samy, Functional Strength, Group Therapy, Gait, Safety, Therapeutic Exercise, Transfers Treatment Duration: Jun 18, 2021 Frequency: At least 5 of 7 days/Wk (IRF) Estimated Hrs Per Day: 1.5 hours per day Patient and/or Family Agrees t: Yes Safety Risks/Education Patient Education: Correct Positioning Response to Teaching: Reinforcement Needed Time/GCodes Time In: 1030 Time Out: 1100 Total Billed Treatment Time: 30 Total Billed Treatment 1,EX30m DARION SANTIAGO SPRUE CUTTING PRESS OPERATOR May 30, 2021 11:41
[2021-05-30 13:03] LABS: BASOPHILS % (AUTO) 1 % (0-10); EOSINOPHILS # (AUTO) 0.1 10^3/uL (0.0-0.3); EOSINOPHILS % (AUTO) 2 % (0-10); HEMATOCRIT 34 % (35-52); HEMOGLOBIN 11.3 g/dL (11.5-16.0); LYMPHOCYTES # (AUTO) 0.6 10^3/uL (1.0-4.0); LYMPHOCYTES % (AUTO) 8 % (12-44); MEAN CORPUSCULAR HEMOGLOBIN 32 pg (25-34); MEAN CORPUSCULAR HGB CONC 33 g/dL (32-36); MEAN CORPUSCULAR VOLUME 94 fL (80-99); MONOCYTES # (AUTO) 0.6 10^3/uL (0.0-1.0); MONOCYTES % (AUTO) 9 % (0-12); NEUTROPHILS # (AUTO) 5.3 10^3/uL (1.8-7.8); NEUTROPHILS % (AUTO) 80 % (42-75); PLATELET COUNT 170 10^3/uL (130-400); WHITE BLOOD COUNT 6.6 10^3/uL (4.3-11.0)
[2021-05-30 13:11] LABS: ALBUMIN 3.7 GM/DL (3.2-4.5); POTASSIUM 3.7 MMOL/L (3.6-5.0)
[2021-05-30 13:13] LABS: CALCIUM 8.7 MG/DL (8.5-10.1)
[2021-05-30 13:14] LABS: TOTAL PROTEIN 6.5 GM/DL (6.4-8.2)
[2021-05-30 13:16] LABS: BILIRUBIN,TOTAL 0.8 MG/DL (0.1-1.0)
[2021-05-30 13:17] LABS: CREATININE SERUM 0.68 MG/DL (0.60-1.30)
--- NOTE | 2021-05-30 14:24 | Diagnostic Imaging Report ---
INDICATION: Cough. COMPARISON: 12/06/2019. FINDINGS: Single view of the chest demonstrates cardiac enlargement with central vascular congestion. There is bibasilar atelectasis with small effusions. There is no pneumothorax or obvious focal infiltrate. Osseous structures are normal. IMPRESSION: Cardiac enlargement with central vascular congestion and small effusions. Dictated by: Dictated on workstation # [id number]
[2021-05-30 20:00] VITALS: BP 141/64
[2021-05-30] MEDS: GABAPENTIN 100 MG (NEURONTIN) CAP PO SCH (20:45)
[2021-05-30] MEDS: DOCUSATE SODIUM 100 MG (COLACE) CAP PO SCH (20:45)
[2021-05-30] MEDS: AtorvaSTATin TABLET 10 MG TABLET PO SCH (20:45)
[2021-05-30] MEDS: LACTOBACILLUS ACIDOPHILUS (PROBIOTIC) CAPSULE PO SCH (20:45)
[2021-05-30] MEDS: ASPIRIN E.C. 81 MG (ECOTRIN) TAB PO SCH (20:45)
[2021-05-30] MEDS: PATIENT MAY USE OWN MED,SINGLE MED PO SCH (22:24)
[2021-05-31] MEDS: HYDROcodone/APAP 5 MG/325 MG (LORTAB) TAB PO PRN ×4 (00:53→22:10)
--- NOTE | 2021-05-31 06:10 | PM&R Progress Note ---
Subjective HPI/CC On Admission Date Seen by Provider: May 31, 2021 Time Seen by Provider: 10:00 Subjective/Events-last exam 05/31/2021: Patient doing a lot better today Very frail status Cough is productive now Bacterial bronchitis will be initiating antibiotic 05/30/2021: Patient short of breath Oxygen maintained Fully Covid vaccinated with booster including flu Checked labs completed septic work-up and chest x-ray all were negative 05/29/2021: Pt doing okay Had some nausea, received Zofran Biofreeze will be from her home supply Cough is noted but lungs are clear Cardiology will be consulted Review of Systems General: Fatigue, Malaise Pulmonary: Dyspnea, Cough Focused Exam Lactate Level 05/30/21 12:50: Lactic Acid Level 0.67 Objective Exam Vital Signs Vital Signs Date Time Temp Pulse Resp B/P (MAP) Pulse Ox O2 Delivery O2 Flow Rate FiO2 05/31/21 09:04 Nasal Cannula 2.00 05/31/21 08:33 37.1 81 20 141/65 (90) 97 Capillary Refill : General Appearance: No Apparent Distress, WD/WN, Anxious, Chronically ill HEENT: PERRL/EOMI, Normal ENT Inspection, Pharynx Normal Neck: Full Range of Motion, Normal Inspection, Non Tender, Supple, Carotid Bruit Respiratory: Chest Non Tender, Lungs Clear, Normal Breath Sounds, No Accessory Muscle Use, No Respiratory Distress Cardiovascular: Regular Rate, Rhythm, No Edema, No Gallop, No JVD, No Murmur, Normal Peripheral Pulses Gastrointestinal: Normal Bowel Sounds, No Organomegaly, No Pulsatile Mass, Non Tender, Soft Rectal: Deferred Back: Normal Inspection, No CVA Tenderness, No Vertebral Tenderness Extremity: Normal Capillary Refill, Normal Inspection, Normal Range of Motion, Non Tender, No Calf Tenderness, No Pedal Edema Neurologic/Psychiatric: Alert, Oriented x3, No Motor/Sensory Deficits, Normal Mood/Affect Skin: Normal Color, Warm/Dry, Other (Right carotid endarterectomy incision line) Lymphatic: No Adenopathy Results/Procedures Lab Patient resulted labs reviewed. FIM Transfers Therapy Code Descriptions/Definitions Functional [place] Measure: 0=Not Assessed/NA 4=Minimal Assistance 1=Total Assistance 5=Supervision or Setup 2=Maximal Assistance 6=Modified [place] 3=Moderate Assistance 7=Complete IndependenceSCALE: Activities may be completed with or without assistive devices. 6-Qpzzmloidv-nurnwnh completes the activity by him/herself with no assistance from a helper. 5-Set-up or Clean-up Assistance-helper sets up or cleans up; patient completes activity. [place] assists only prior to or following the activity. 4-Supervision or Touching Assistance-helper provides verbal cues and/or touching/steadying and/or contact guard assistance as patient completes activity. Assistance may be provided throughout the activity or intermittently. 3-Partial/Moderate Assistance-helper does LESS THAN HALF the effort. [place] lifts, holds or supports trunk or limbs, but provides less than half the effort. 2-Substantial/Maximal Assistance-helper does MORE THAN HALF the effort. [place] lifts or holds trunk or limbs and provides more than half the effort. 6-Uwfdgsmsu-gtjpcy does ALL the effort. Patient does none of the effort to complete the activity. Or, the assistance of 2 or more helpers is required for the patient to complete the activity. If activity was not attempted, code reason: 7-Patient Refused. 9-Not Applicable-not attempted and the patient did not perform the activity before the current illness, exacerbation or injury. 10-Not Attempted due to Environmental Limitations-(lack of equipment, weather restraints, etc.). 88-Not Attempted due to Medical Conditions or Safety Concerns. Roll Left to Right (QC): 6 Sit to Lying (QC): 6 Sit to Stand (QC): 5 Chair/Gpc-gr-Scmab Xfer(QC): 5 Car Transfer (QC): 4 Gait Training Does the Patient Walk?: Yes Walk 10 feet (QC): 4 Walk 50 ft with 2 Turns(QC): 4 Walk 150 ft (QC): 4 Walking 10ft/uneven surface-QC: 4 Gait Persons Needed: 1 Gait Assistive Device: FWW Wheelchair Training Wheel 50 ft with 2 turns (QC): 9 Wheel 150 ft (QC): 9 Stair Training #of Steps: 4 1 Step (curb) (QC): 4 4 Steps (QC): 4 12 Steps (QC): 88 Balance Picking up an Object (QC): 4 ADL-Treatment Eating (QC): 6 (IND with breakfast per pt report.) Oral Hygiene (QC): 4 Shower/Bathe Self (QC): 4 (SBA in standing. Pt able to wash/dry all parts.) Upper Body Dressing (QC): 5 (set up assist.) Lower Body Dressing (QC): 4 (SBA with donning LE clothing.) On/Off Footwear (QC): 3 (Min A. Pt able to doff socks and shoes. Assist to don compression socks, pt able to slip on shoes.) Toileting Hygiene (QC): 4 (SBA, pt able to manage clothing and perform hygiene. ) Toilet Transfer (QC): 4 (SBA on/off toilet.) Assessment/Plan Assessment and Plan Assess & Plan/Chief Complaint Assessment: Debility with weakness Right carotid endarterectomy AF w/RVR s/p cardioversion CHF diastolic type BCC hx Hypoxia uses oxygen at night chronically Fall risk Impulsive and high risk for falls Acute bacterial bronchitis initiate antibiotic on 05/31/2021 Plan: Home meds Cardiology consult Inpatient rehab protocol 05/29/2021: Nausea treatment Rehab protocol 05/30/2021: Oxygen supplementation Septic work-up 05/31/2021: Antibiotic for bacterial bronchitis (1) Chronic heart failure with preserved ejection fraction (HFpEF) Assessment & Plan: I suspect she has some lower extremity edema related to intravenous fluids given perioperatively at the outside facility. She has now received 1 dose of intravenous Lasix. She is having some exertional dyspnea this morning during physical therapy. She is probably about class II-III at this point in time. We will reassess tomorrow to see if she needs any further diuretic. She was not taking diuretic at home because she has a tendency to develop dehydration. She should continue with compression stockings during the day. If she is still short of breath tomorrow, I may consider chest x-ray at that time. (2) Paroxysmal atrial fibrillation Assessment & Plan: She has been maintaining sinus rhythm as an outpatient on no antiarrhythmic drug. We will continue diltiazem for rate control in the event she has recurrent atrial fibrillation and apixaban for stroke prophylaxis. (3) Atherosclerosis of both carotid arteries Assessment & Plan: She is now status post right carotid endarterectomy. The site is healing well. She is on aspirin and statin medication. We may want to discontinue the aspirin in 1 month since she takes apixaban for the atrial fibrillation. This will help reduce the risk of hemorrhagic side effects in an octogenarian. (4) Primary hypertension Assessment & Plan: Blood pressure has been intermittently elevated in the past 24 hours. If this persists, we may need to make some adjustment to her antihypertensive medication. (5) Mitral regurgitation Assessment & Plan: Her most recent echocardiogram from August 2020 only shows mild mitral regurgitation. (6) Pulmonary hypertension Assessment & Plan: This is been mild in the past and is probably related to her advanced age and chronic heart failure. (7) Mixed hyperlipidemia Assessment & Plan: Continue statin medication. ELVA BEAUCHAMP DO May 31, 2021 06:10
[2021-05-31] MEDS: CYANOCOBALAMIN 1,000 MCG (VITAMIN B-12) TABLET PO SCH (06:27)
[2021-05-31] MEDS: LEVOTHYROXINE 88 MCG (LEVOTHORID) TAB PO SCH (06:27)
[2021-05-31 08:33] VITALS: BP 141/65
[2021-05-31] MEDS: APIXABAN 5 MG (ELIQUIS) TABLET PO SCH ×2 (08:34→21:01)
[2021-05-31] MEDS: LORATADINE (CLARITIN) 10 MG TAB PO SCH (08:34)
[2021-05-31] MEDS: doxAzosin 1 MG (CARDURA) TAB PO SCH ×2 (08:34→21:00)
[2021-05-31] MEDS: VITAMIN D3 25 MCG (1,000 UNITS) TABLET PO SCH ×2 (08:35→21:00)
[2021-05-31] MEDS: ARTIFICAL TEARS 0.4 ML UNIT DOSE (REFRESH PLUS) OU SCH ×3 (08:35→21:01)
[2021-05-31] MEDS: SENNA W/DOCUSATE (SENOKOT S) TABLET PO SCH ×2 (08:38→21:00)
[2021-05-31] MEDS: DOCUSATE SODIUM 100 MG (COLACE) CAP PO PRN (08:38)
[2021-05-31] MEDS: MAGNESIUM OXIDE (MAG-OX)400 MG TAB PO SCH (08:38)
[2021-05-31] MEDS: polyethylene glycoL POWDER 17 GM (MIRALAX) PACK PO SCH ×2 (08:38→21:09)
[2021-05-31] MEDS: CEFDINIR 300 MG (OMNICEF) CAP PO SCH ×2 (11:19→21:00)
--- NOTE | 2021-05-31 11:35 | Cardiology Progress Note ---
Progress Note-Cardiology Events since last exam Date Seen by Provider: May 31, 2021 Time Seen by Provider: 11:35 Events since last exam I am following her due to heart failure. Her breathing is better today. Her peripheral edema is about the same. She denies chest pain, palpitations, or syncope. Certain portions of this document may have been dictated utilizing voice recognition technology. Inherent to this technology, typographical and grammatical errors may exist. As much as I am diligent to identify and correct these mistakes, some errors may remain in the document. Vitals Last set of Vitals Signs Vital Signs 05/31/21 05/31/21 08:33 09:04 Temp 37.1 Pulse 81 Resp 20 B/P (MAP) 141/65 (90) Pulse Ox 97 O2 Delivery Nasal Cannula O2 Flow Rate 2.00 Labs Labs Laboratory Tests 05/30/21 12:50 Exam Vital Signs Vital Signs Date Time Temp Pulse Resp B/P (MAP) Pulse Ox O2 Delivery O2 Flow Rate FiO2 05/31/21 09:04 Nasal Cannula 2.00 05/31/21 08:33 37.1 81 20 141/65 (90) 97 Physical Exam General: Alert. No acute distress. Eye: No xanthelasma. HENT: Normocephalic. Neck: Jugular venous pressure does not appear elevated. Respiratory: Lungs are clear to auscultation. Respirations are non-labored. Breath sounds are equal. Symmetrical chest wall expansion. Cardiovascular: Normal rate. Regular rhythm. 2/6 systolic ejection murmur. No gallop. 1+ bilateral pretibial edema. Gastrointestinal: Soft. Normal bowel sounds. Skin: Warm. Dry. Neurologic: Alert and oriented to person, place, time. Cranial nerves 3-11 grossly intact. Psychiatric: Cooperative. Appropriate mood & affect. Labs Laboratory Tests Test 05/30/21 12:50 Range/Units White Blood Count 6.6 4.3-11.0 10^3/uL Red Blood Count 3.58 L 3.80-5.11 10^6/uL Hemoglobin 11.3 L 11.5-16.0 g/dL Hematocrit 34 L 35-52 % Mean Corpuscular Volume 94 80-99 fL Mean Corpuscular Hemoglobin 32 25-34 pg Mean Corpuscular Hemoglobin Concent 33 32-36 g/dL Red Cell Distribution Width 11.9 10.0-14.5 % Platelet Count 170 130-400 10^3/uL Mean Platelet Volume 9.0 9.0-12.2 fL Immature Granulocyte % (Auto) 1 % Neutrophils (%) (Auto) 80 H 42-75 % Lymphocytes (%) (Auto) 8 L 12-44 % Monocytes (%) (Auto) 9 0-12 % Eosinophils (%) (Auto) 2 0-10 % Basophils (%) (Auto) 1 0-10 % Neutrophils # (Auto) 5.3 1.8-7.8 10^3/uL Lymphocytes # (Auto) 0.6 L 1.0-4.0 10^3/uL Monocytes # (Auto) 0.6 0.0-1.0 10^3/uL Eosinophils # (Auto) 0.1 0.0-0.3 10^3/uL Basophils # (Auto) 0.0 0.0-0.1 10^3/uL Immature Granulocyte # (Auto) 0.0 0.0-0.1 10^3/uL Sodium Level 133 L 135-145 MMOL/L Potassium Level 3.7 3.6-5.0 MMOL/L Chloride Level 98 98-107 MMOL/L Carbon Dioxide Level 24 21-32 MMOL/L Anion Gap 11 5-14 MMOL/L Blood Urea Nitrogen 10 7-18 MG/DL Creatinine 0.68 0.60-1.30 MG/DL Estimat Glomerular Filtration Rate 83 BUN/Creatinine Ratio 15 Glucose Level 113 H 70-105 MG/DL Lactic Acid Level 0.67 0.50-2.00 MMOL/L Calcium Level 8.7 8.5-10.1 MG/DL Corrected Calcium 8.9 8.5-10.1 MG/DL Total Bilirubin 0.8 0.1-1.0 MG/DL Aspartate Amino Transf (AST/SGOT) 32 5-34 U/L Alanine Aminotransferase (ALT/SGPT) 22 0-55 U/L Alkaline Phosphatase 59 40-136 U/L B-Type Natriuretic Peptide 122.0 H <100.0 PG/ML Total Protein 6.5 6.4-8.2 GM/DL Albumin 3.7 3.2-4.5 GM/DL Procalcitonin 0.03 <0.10 NG/ML Diagnosis/Problems Diagnosis/Problems (1) Chronic heart failure with preserved ejection fraction (HFpEF) Assessment & Plan: I suspect she has some lower extremity edema related to intravenous fluids given perioperatively at the outside facility. She has received intravenous Lasix. Her shortness of breath is improved today. She is probably about class II-III at this point in time. She was not taking diuretic at home because she has a tendency to develop dehydration. She should continue with compression stockings during the day. Since her breathing is improved today, I will hold off on a follow-up chest x-ray. (2) Paroxysmal atrial fibrillation Assessment & Plan: She has been maintaining sinus rhythm as an outpatient on no antiarrhythmic drug. We will continue diltiazem for rate control in the event she has recurrent atrial fibrillation and apixaban for stroke prophylaxis. (3) Primary hypertension Assessment & Plan: Blood pressures have improved since admission. They are still mildly elevated at times. However, this is in the setting of recent surgery and perhaps some degree of volume overload. I will hold off on adjusting her antihypertensive medication for the time being. (4) Mixed hyperlipidemia Assessment & Plan: Continue statin medication. (5) Atherosclerosis of both carotid arteries Assessment & Plan: She is now status post right carotid endarterectomy. The site is healing well. She is on aspirin and statin medication. We may want to discontinue the aspirin in 1 month since she takes apixaban for the atrial fibrillation. This will help reduce the risk of hemorrhagic side effects in an octogenarian. (6) Mitral regurgitation Assessment & Plan: Her most recent echocardiogram from August 2020 only shows mild mitral regurgitation. (7) Pulmonary hypertension Assessment & Plan: This is been mild in the past and is probably related to her advanced age and chronic heart failure. JAIRON MORRISSEY JR, MD May 31, 2021 11:35
[2021-05-31] MEDS: RT-ALBUTEROL/IPRATROPIUM 3 ML (DUONEB) VIAL INH SCH ×3 (14:32→20:49)
[2021-05-31 20:00] VITALS: BP 161/70
[2021-05-31] MEDS: ASPIRIN E.C. 81 MG (ECOTRIN) TAB PO SCH (21:00)
[2021-05-31] MEDS: GABAPENTIN 100 MG (NEURONTIN) CAP PO SCH (21:00)
[2021-05-31] MEDS: LACTOBACILLUS ACIDOPHILUS (PROBIOTIC) CAPSULE PO SCH (21:00)
[2021-05-31] MEDS: DOCUSATE SODIUM 100 MG (COLACE) CAP PO SCH (21:00)
[2021-05-31] MEDS: AtorvaSTATin TABLET 10 MG TABLET PO SCH (21:01)
[2021-06-01] MEDS ORDERED: guaiFENesin/DM (ROBITUSSIN DM) 10 ML UDC PO PRN (00:15)
[2021-06-01] MEDS: BENZONATATE 100 MG (TESSALON) CAPSULE PO SCH ×4 (01:11→21:41)
--- NOTE | 2021-06-01 07:04 | PM&R Progress Note ---
Subjective HPI/CC On Admission Date Seen by Provider: Jun 01, 2021 Time Seen by Provider: 12:45 Subjective/Events-last exam 06/01/2021: Patient doing better today Bronchitis treatment tolerated We will give 1 dose of Solu-Medrol in 80mg IM since she does not have IV access Cough is improved 05/31/2021: Patient doing a lot better today Very frail status Cough is productive now Bacterial bronchitis will be initiating antibiotic 05/30/2021: Patient short of breath Oxygen maintained Fully Covid vaccinated with booster including flu Checked labs completed septic work-up and chest x-ray all were negative 05/29/2021: Pt doing okay Had some nausea, received Zofran Biofreeze will be from her home supply Cough is noted but lungs are clear Cardiology will be consulted Review of Systems General: Fatigue, Malaise Pulmonary: Dyspnea, Cough Focused Exam Lactate Level 05/30/21 12:50: Lactic Acid Level 0.67 Objective Exam Vital Signs Vital Signs Date Time Temp Pulse Resp B/P (MAP) Pulse Ox O2 Delivery O2 Flow Rate FiO2 06/01/21 21:22 93 Nasal Cannula 2.00 06/01/21 20:00 36.5 77 18 139/63 (88) Capillary Refill : General Appearance: No Apparent Distress, WD/WN, Anxious, Chronically ill HEENT: PERRL/EOMI, Normal ENT Inspection, Pharynx Normal Neck: Full Range of Motion, Normal Inspection, Non Tender, Supple, Carotid Bruit Respiratory: Chest Non Tender, Lungs Clear, Normal Breath Sounds, No Accessory Muscle Use, No Respiratory Distress Cardiovascular: Regular Rate, Rhythm, No Edema, No Gallop, No JVD, No Murmur, Normal Peripheral Pulses Gastrointestinal: Normal Bowel Sounds, No Organomegaly, No Pulsatile Mass, Non Tender, Soft Rectal: Deferred Back: Normal Inspection, No CVA Tenderness, No Vertebral Tenderness Extremity: Normal Capillary Refill, Normal Inspection, Normal Range of Motion, Non Tender, No Calf Tenderness, No Pedal Edema Neurologic/Psychiatric: Alert, Oriented x3, No Motor/Sensory Deficits, Normal Mood/Affect Skin: Normal Color, Warm/Dry, Other (Right carotid endarterectomy incision line) Lymphatic: No Adenopathy Results/Procedures Lab Patient resulted labs reviewed. FIM Transfers Therapy Code Descriptions/Definitions Functional [place] Measure: 0=Not Assessed/NA 4=Minimal Assistance 1=Total Assistance 5=Supervision or Setup 2=Maximal Assistance 6=Modified [place] 3=Moderate Assistance 7=Complete IndependenceSCALE: Activities may be completed with or without assistive devices. 9-Qwhwnjiilu-ehfcqqf completes the activity by him/herself with no assistance from a helper. 5-Set-up or Clean-up Assistance-helper sets up or cleans up; patient completes activity. [place] assists only prior to or following the activity. 4-Supervision or Touching Assistance-helper provides verbal cues and/or touching/steadying and/or contact guard assistance as patient completes activity. Assistance may be provided throughout the activity or intermittently. 3-Partial/Moderate Assistance-helper does LESS THAN HALF the effort. [place] lifts, holds or supports trunk or limbs, but provides less than half the effort. 2-Substantial/Maximal Assistance-helper does MORE THAN HALF the effort. [place] lifts or holds trunk or limbs and provides more than half the effort. 7-Gltcorami-mlxjcr does ALL the effort. Patient does none of the effort to co mplete the activity. Or, the assistance of 2 or more helpers is required for the patient to complete the activity. If activity was not attempted, code reason: 7-Patient Refused. 9-Not Applicable-not attempted and the patient did not perform the activity before the current illness, exacerbation or injury. 10-Not Attempted due to Environmental Limitations-(lack of equipment, weather restraints, etc.). 88-Not Attempted due to Medical Conditions or Safety Concerns. Roll Left to Right (QC): 6 Sit to Lying (QC): 6 Sit to Stand (QC): 5 Chair/Xbd-eg-Nwlqu Xfer(QC): 5 Car Transfer (QC): 4 Gait Training Does the Patient Walk?: Yes Walk 10 feet (QC): 4 Walk 50 ft with 2 Turns(QC): 4 Walk 150 ft (QC): 4 Walking 10ft/uneven surface-QC: 4 Gait Persons Needed: 1 Gait Assistive Device: FWW Wheelchair Training Wheel 50 ft with 2 turns (QC): 9 Wheel 150 ft (QC): 9 Stair Training #of Steps: 4 1 Step (curb) (QC): 4 4 Steps (QC): 4 12 Steps (QC): 88 Balance Picking up an Object (QC): 4 ADL-Treatment Eating (QC): 6 (IND with breakfast per pt report.) Oral Hygiene (QC): 4 Shower/Bathe Self (QC): 4 (SBA in standing. Pt able to wash/dry all parts.) Upper Body Dressing (QC): 5 (set up assist.) Lower Body Dressing (QC): 4 (SBA with donning LE clothing.) On/Off Footwear (QC): 3 (Min A. Pt able to doff socks and shoes. Assist to don compression socks, pt able to slip on shoes.) Toileting Hygiene (QC): 4 (SBA, pt able to manage clothing and perform hygiene. ) Toilet Transfer (QC): 4 (SBA on/off toilet.) Assessment/Plan Assessment and Plan Assess & Plan/Chief Complaint Assessment: Debility with weakness Right carotid endarterectomy AF w/RVR s/p cardioversion CHF diastolic type BCC hx Hypoxia uses oxygen at night chronically Fall risk Impulsive and high risk for falls Acute bacterial bronchitis initiate antibiotic on 05/31/2021 Plan: Home meds Cardiology consult Inpatient rehab protocol 05/29/2021: Nausea treatment Rehab protocol 05/30/2021: Oxygen supplementation Septic work-up 05/31/2021: Antibiotic for bacterial bronchitis 06/01/2021: Supportive care Diuresis Bronchitis treatment (1) Chronic heart failure with preserved ejection fraction (HFpEF) Assessment & Plan: I suspect she has some lower extremity edema related to intravenous fluids given perioperatively at the outside facility. She has received intravenous Lasix. Her shortness of breath is improved today. She is probably about class II-III at this point in time. She was not taking diuretic at home because she has a tendency to develop dehydration. She should continue with compression stockings during the day. Since her breathing is improved today, I will hold off on a follow-up chest x-ray. (2) Paroxysmal atrial fibrillation Assessment & Plan: She has been maintaining sinus rhythm as an outpatient on no antiarrhythmic drug. We will continue diltiazem for rate control in the event she has recurrent atrial fibrillation and apixaban for stroke prophylaxis. (3) Primary hypertension Assessment & Plan: Blood pressures have improved since admission. They are still mildly elevated at times. However, this is in the setting of recent surgery and perhaps some degree of volume overload. I will hold off on adjusting her antihypertensive medication for the time being. (4) Mixed hyperlipidemia Assessment & Plan: Continue statin medication. (5) Atherosclerosis of both carotid arteries Assessment & Plan: She is now status post right carotid endarterectomy. The site is healing well. She is on aspirin and statin medication. We may want to discontinue the aspirin in 1 month since she takes apixaban for the atrial fibrillation. This will help reduce the risk of hemorrhagic side effects in an octogenarian. (6) Mitral regurgitation Assessment & Plan: Her most recent echocardiogram from August 2020 only shows mild mitral regurgitation. (7) Pulmonary hypertension Assessment & Plan: This is been mild in the past and is probably related to her advanced age and chronic heart failure. ELVA BEAUCHAMP DO Jun 01, 2021 07:04
[2021-06-01 07:30] VITALS: BP 169/79
[2021-06-01] MEDS: RT-ALBUTEROL/IPRATROPIUM 3 ML (DUONEB) VIAL INH SCH ×3 (07:47→21:21)
[2021-06-01] MEDS: APIXABAN 5 MG (ELIQUIS) TABLET PO SCH ×2 (08:06→21:42)
[2021-06-01] MEDS: polyethylene glycoL POWDER 17 GM (MIRALAX) PACK PO SCH ×2 (08:06→21:47)
[2021-06-01] MEDS: HYDROcodone/APAP 5 MG/325 MG (LORTAB) TAB PO PRN ×3 (08:07→21:45)
[2021-06-01] MEDS: doxAzosin 1 MG (CARDURA) TAB PO SCH ×2 (08:07→21:41)
[2021-06-01] MEDS: CYANOCOBALAMIN 1,000 MCG (VITAMIN B-12) TABLET PO SCH (08:07)
[2021-06-01] MEDS: SENNA W/DOCUSATE (SENOKOT S) TABLET PO SCH ×2 (08:07→21:41)
[2021-06-01] MEDS: VITAMIN D3 25 MCG (1,000 UNITS) TABLET PO SCH ×2 (08:07→21:41)
[2021-06-01] MEDS: LORATADINE (CLARITIN) 10 MG TAB PO SCH (08:07)
[2021-06-01] MEDS: CEFDINIR 300 MG (OMNICEF) CAP PO SCH ×2 (08:07→21:41)
[2021-06-01] MEDS: LEVOTHYROXINE 88 MCG (LEVOTHORID) TAB PO SCH (08:07)
[2021-06-01] MEDS: ARTIFICAL TEARS 0.4 ML UNIT DOSE (REFRESH PLUS) OU SCH ×3 (08:08→21:42)
--- NOTE | 2021-06-01 08:41 | Cardiology Progress Note ---
Progress Note-Cardiology Events since last exam Date Seen by Provider: Jun 01, 2021 Time Seen by Provider: 08:37 Events since last exam I am following her due to heart failure and paroxysmal atrial fibrillation. Overnight she had a cough productive of whitish sputum. She denies shortness of breath. Her ankle edema is better than when she was admitted but not completely resolved. She denies chest discomfort, palpitations, or syncope. Certain portions of this document may have been dictated utilizing voice recognition technology. Inherent to this technology, typographical and grammatical errors may exist. As much as I am diligent to identify and correct these mistakes, some errors may remain in the document. Vitals Last set of Vitals Signs Vital Signs 06/01/21 06/01/21 07:30 07:47 Temp 37.4 Pulse 87 Resp 16 B/P (MAP) 169/79 (109) Pulse Ox 93 O2 Delivery Nasal Cannula O2 Flow Rate 2.00 Exam Vital Signs Vital Signs Date Time Temp Pulse Resp B/P (MAP) Pulse Ox O2 Delivery O2 Flow Rate FiO2 06/01/21 07:47 93 Nasal Cannula 2.00 06/01/21 07:30 37.4 87 16 169/79 (109) Physical Exam General: Alert. No acute distress. Eye: No xanthelasma. HENT: Normocephalic. Neck: Jugular venous pressure does not appear elevated. Respiratory: Lungs are clear to auscultation. Respirations are non-labored. Breath sounds are equal. Symmetrical chest wall expansion. Cardiovascular: Normal rate. Regular rhythm. 2/6 systolic ejection murmur. No gallop. 1+ bilateral pretibial edema with compression stockings in place. Gastrointestinal: Soft. Normal bowel sounds. Skin: Warm. Dry. Neurologic: Alert and oriented to person, place, time. Cranial nerves 3-11 grossly intact. Psychiatric: Cooperative. Appropriate mood & affect. Diagnosis/Problems Diagnosis/Problems (1) Chronic heart failure with preserved ejection fraction (HFpEF) Assessment & Plan: I suspect she has some lower extremity edema related to intravenous fluids given perioperatively at the outside facility. She has received a couple of doses of intravenous Lasix. Unclear whether or not her cough could be a sign of heart failure. She is probably about class II-III at this point in time. She was not taking diuretic at home because she has a tendency to develop dehydration. She should continue with compression stockings during the day. Given the cough, I will obtain a chest x-ray this morning. I have also ordered incentive spirometry. (2) Paroxysmal atrial fibrillation Assessment & Plan: She has been maintaining sinus rhythm as an outpatient on no antiarrhythmic drug. We will continue diltiazem for rate control in the event she has recurrent atrial fibrillation and apixaban for stroke prophylaxis. (3) Primary hypertension Assessment & Plan: Blood pressures had improved since admission but are again elevated over the past 24-48 hours. I will increase her dose of diltiazem from 240 mg daily to 300 mg daily. (4) Mixed hyperlipidemia Assessment & Plan: Continue statin medication. (5) Atherosclerosis of both carotid arteries Assessment & Plan: She is now status post right carotid endarterectomy. The site is healing well. She is on aspirin and statin medication. We may want to discontinue the aspirin in 1 month since she takes apixaban for the atrial fibrillation. This will help reduce the risk of hemorrhagic side effects in an octogenarian. (6) Mitral regurgitation Assessment & Plan: Her most recent echocardiogram from August 2020 only shows mild mitral regurgitation. (7) Pulmonary hypertension Assessment & Plan: This is been mild in the past and is probably related to her advanced age and chronic heart failure. JAIRON MORRISSEY JR, MD Jun 01, 2021 08:41
--- NOTE | 2021-06-01 09:48 | Diagnostic Imaging Report ---
Indication: Cough Compared with study of 05/30/2021 Findings: Air trapping and COPD as a chronic finding present. Heart size stable. Some prominence of interstitial lung markings as a chronic finding noted however interstitial opacities in the bases have progressed. Impression: Some progressive basilar interstitial disease, air trapping and COPD otherwise stable and chronic. Dictated by: Dictated on workstation # [id number]
[2021-06-01] MEDS ORDERED: FUROSEMIDE 40 MG/4 ML INJ (LASIX) IVP NR (10:30)
[2021-06-01] MEDS ORDERED: methylPREDNISolone 40 MG/ML (Solu-MEDROL) VIAL IM NR (13:30)
[2021-06-01] MEDS: FUROSEMIDE 40 MG (LASIX) TAB PO SCH (13:32)
[2021-06-01 20:00] VITALS: BP 139/63
[2021-06-01] MEDS: GABAPENTIN 100 MG (NEURONTIN) CAP PO SCH (21:41)
[2021-06-01] MEDS: LACTOBACILLUS ACIDOPHILUS (PROBIOTIC) CAPSULE PO SCH (21:41)
[2021-06-01] MEDS: AtorvaSTATin TABLET 10 MG TABLET PO SCH (21:41)
[2021-06-01] MEDS: ASPIRIN E.C. 81 MG (ECOTRIN) TAB PO SCH (21:41)
[2021-06-01] MEDS: DOCUSATE SODIUM 100 MG (COLACE) CAP PO SCH (21:41)
[2021-06-02 06:39] LABS: BASOPHILS % (AUTO) 0 % (0-10); EOSINOPHILS % (AUTO) 0 % (0-10); HEMATOCRIT 35 % (35-52); HEMOGLOBIN 12.1 g/dL (11.5-16.0); LYMPHOCYTES # (AUTO) 0.4 10^3/uL (1.0-4.0); LYMPHOCYTES % (AUTO) 11 % (12-44); MEAN CORPUSCULAR HEMOGLOBIN 32 pg (25-34); MEAN CORPUSCULAR HGB CONC 34 g/dL (32-36); MEAN CORPUSCULAR VOLUME 93 fL (80-99); MEAN PLATELET VOLUME 9.1 fL (9.0-12.2); MONOCYTES # (AUTO) 0.1 10^3/uL (0.0-1.0); MONOCYTES % (AUTO) 3 % (0-12); NEUTROPHILS # (AUTO) 2.7 10^3/uL (1.8-7.8); NEUTROPHILS % (AUTO) 86 % (42-75); PLATELET COUNT 199 10^3/uL (130-400); WHITE BLOOD COUNT 3.2 10^3/uL (4.3-11.0)
[2021-06-02 06:44] LABS: ALBUMIN 3.7 GM/DL (3.2-4.5); BILIRUBIN,TOTAL 0.5 MG/DL (0.1-1.0); CALCIUM 9.1 MG/DL (8.5-10.1); CREATININE SERUM 0.7 MG/DL (0.60-1.30); POTASSIUM 3.6 MMOL/L (3.6-5.0); TOTAL PROTEIN 6.6 GM/DL (6.4-8.2)
[2021-06-02] MEDS: RT-ALBUTEROL/IPRATROPIUM 3 ML (DUONEB) VIAL INH SCH ×3 (06:45→20:39)
[2021-06-02 07:08] VITALS: BP 152/70
[2021-06-02] MEDS: LEVOTHYROXINE 88 MCG (LEVOTHORID) TAB PO SCH (07:45)
[2021-06-02] MEDS: CYANOCOBALAMIN 1,000 MCG (VITAMIN B-12) TABLET PO SCH (07:45)
[2021-06-02] MEDS: APIXABAN 5 MG (ELIQUIS) TABLET PO SCH ×2 (08:28→21:30)
[2021-06-02] MEDS: polyethylene glycoL POWDER 17 GM (MIRALAX) PACK PO SCH ×2 (08:28→21:40)
[2021-06-02] MEDS: doxAzosin 1 MG (CARDURA) TAB PO SCH ×2 (08:28→21:29)
[2021-06-02] MEDS: CEFDINIR 300 MG (OMNICEF) CAP PO SCH ×2 (08:28→21:29)
[2021-06-02] MEDS: BENZONATATE 100 MG (TESSALON) CAPSULE PO SCH ×3 (08:28→21:30)
[2021-06-02] MEDS: VITAMIN D3 25 MCG (1,000 UNITS) TABLET PO SCH ×2 (08:28→21:30)
[2021-06-02] MEDS: ARTIFICAL TEARS 0.4 ML UNIT DOSE (REFRESH PLUS) OU SCH ×3 (08:28→21:29)
[2021-06-02] MEDS: FUROSEMIDE 40 MG (LASIX) TAB PO SCH (08:29)
[2021-06-02] MEDS: LORATADINE (CLARITIN) 10 MG TAB PO SCH (08:29)
[2021-06-02] MEDS: SENNA W/DOCUSATE (SENOKOT S) TABLET PO SCH ×2 (08:29→21:40)
[2021-06-02] MEDS ORDERED: FUROSEMIDE 40 MG/4 ML INJ (LASIX) IVP SCH (09:00)
--- NOTE | 2021-06-02 09:04 | Physical Therapy Daily Note ---
PT Daily Note-Current Subjective Pt. up in recliner states " Oh no , already"? Pt. agrees to Rx with encouragement . Wants to get several things done before she leaves the room and requests many rest breaks . requests toileting for BM, LE dressing, hands and face washing and electric toothbrushing, nurse here with meds, sputum sample, etc. Pt. agrees to LE exercises in sitting position during some of these activities. Pt. 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 No c/o pain but does c/o she is thirsty and tired of coughing and gets fatigued so easily Pain Location: No Pain Reported Mental Status Patient Orientation: Person Attachments: Oxygen (2L) Transfers SCALE: Activities may be completed with or without assistive devices. 7-Czuttrdazl-eiiocme completes the activity by him/herself with no assistance from a helper. 5-Set-up or Clean-up Assistance-helper sets up or cleans up; patient completes activity. [place] assists only prior to or following the activity. 4-Supervision or Touching Assistance-helper provides verbal cues and/or touching/steadying and/or contact guard assistance as patient completes activity. Assistance may be provided throughout the activity or intermittently. 3-Partial/Moderate Assistance-helper does LESS THAN HALF the effort. [place] lifts, holds or supports trunk or limbs, but provides less than half the effort. 2-Substantial/Maximal Assistance-helper does MORE THAN HALF the effort. [place] lifts or holds trunk or limbs and provides more than half the effort. 9-Qvfyytkgd-dfzccq does ALL the effort. Patient does none of the effort to complete the activity. Or, the assistance of 2 or more helpers is required for the patient to complete the activity. If activity was not attempted, code reason: 7-Patient Refused. 9-Not Applicable-not attempted and the patient did not perform the activity before the current illness, exacerbation or injury. 10-Not Attempted due to Environmental Limitations-(lack of equipment, weather restraints, etc.). 88-Not Attempted due to Medical Conditions or Safety Concerns. Sit to Stand (QC): 6 Chair/Krl-mg-Ntorr Xfer(QC): 6 Toilet Transfer (QC): 6 Weight Bearing 10# lifting restriction and no squatting Gait Training Does the Patient Walk?: Yes Walk 10 feet (QC): 5 Walk 50 ft with 2 Turns(QC): 5 Walk 150 ft (QC): 5 Gait Persons Needed: 1 Gait Assistive Device: FWW needs assist for portable o2 only Exercises Seated Therapy Exercises: Ankle pumps, Sit to stand, Chair press-ups, Hip flexion, Hip abd/add Seated Reps: 15 NuStep Minutes: 10 NuStep Workload: 1 Treatments leg presses on Nustep x 15 Assessment Current Status: Good Progress frequent rest breaks but improved endurance noted over last Wed. Frequent coughing PT Short Term Goals Short Term Goals Time Frame: Jun 04, 2021 Roll Left & Right: 6 Sit to lyin Lying to sitting on side of be: 6 Sit to stand: 4 (SBA) Chair/azt-xh-qkhpq transfer: 4 (SBA) Walk 10 feet: 4 (SBA) Walk 50 feet with two turns: 4 (SBA) Walk 150 feet: 4 (SBA) 1 step (curb): 4 (SBA) 4 steps: 4 (SBA) PT Waiter/Waitress [place] Goals Waiter/Waitress [place] Goals PT Waiter/Waitress [place] Goals Time Frame: Jun 18, 2021 Roll Left & Right (QC): 6 Sit to Lying (QC): 6 Lying-Sitting on Side/Bed(QC): 6 Sit to Stand (QC): 6 Chair/Tzi-qc-Tpcke Xfer(QC): 6 Toilet Transfer (QC): 6 Car Transfer (QC): 6 Does the Patient Walk: Yes Walk 10 feet (QC): 6 Walk 50ft with 2 Turns (QC): 6 Walk 150 ft (QC): 6 Walking 10ft on Uneven Surface: 6 1 Step (curb) (QC): 4 (SBA) 4 Steps (QC): 4 (SBA) 12 Steps (QC): 4 (SBA) Picking up an Object (QC): 6 Wheel 50 feet with 2 turns (QC: 9 Wheel 150 feet: 9 PT Plan Treatment/Plan Treatment Plan: Continue Plan of Care Treatment Plan: Bed Mobility, Education, Functional Activity Samy, Functional Strength, Group Therapy, Gait, Safety, Therapeutic Exercise, Transfers Treatment Duration: Jun 18, 2021 Frequency: At least 5 of 7 days/Wk (IRF) Estimated Hrs Per Day: 1.5 hours per day Patient and/or Family Agrees t: Yes Safety Risks/Education Patient Education: Gait Training, Transfer Techniques, Correct Positioning, Disease Process, Safety Issues Teaching Recipient: Patient, Primary Caregiver Teaching Methods: Discussion Response to Teaching: Verbalize Understanding, Return Demonstration discussed that 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
[2021-06-02] MEDS: MAGNESIUM OXIDE (MAG-OX)400 MG TAB PO SCH ×2 (09:53→14:01)
--- NOTE | 2021-06-02 10:29 | Occupational Ther Daily Note ---
OT Current Status-Daily Note Subjective Pt alert, sitting at recliner when OT entered. Pt reported feeling tired but no pain. Pt agreed to therapy. Mental Status/Objective Patient Orientation: Person, Place, Time, Situation ADL-Treatment Pt agreed to complete shower. Pt sit-stand from recliner to FWW with supervision. Pt ambulated to bathroom using FWW with SBA and transferred to toilet. Pt completed toilet hygine with CGA due to poor dynamic balance. Pt transferred to shower bench. Pt doffed UB and LB dressing and jayna hose at shower bench. Pt was able to cleanse/dry all body parts with supervision for safety.Pt required increased time to complete shower due to requiring frequent resting breaks. Pt required shower bench, grab bars, and hand held shower head to complete shower. After set up, pt donned UB and LB dressing. Pt required assist to done jayna hose. Pt requested to cleanse face with warm wash cloth. After supplies gathered, pt washed face while sitting in chair at bathroom. Pt sit- stand from chair to FWW and ambulated to room. Pt transferred recliner. After session, pt sitting in recliner. All needs met and call light in reach. Therapy Code Descriptions/Definitions Functional [place] Measure: 0=Not Assessed/NA 4=Minimal Assistance 1=Total Assistance 5=Supervision or Setup 2=Maximal Assistance 6=Modified [place] 3=Moderate Assistance 7=Complete IndependenceSCALE: Activities may be completed with or without assistive devices. 3-Tjkfkpbzux-fplmwio completes the activity by him/herself with no assistance from a helper. 5-Set-up or Clean-up Assistance-helper sets up or cleans up; patient completes activity. [place] assists only prior to or following the activity. 4-Supervision or Touching Assistance-helper provides verbal cues and/or touching/steadying and/or contact guard assistance as patient completes activi ty. Assistance may be provided throughout the activity or intermittently. 3-Partial/Moderate Assistance-helper does LESS THAN HALF the effort. [place] lifts, holds or supports trunk or limbs, but provides less than half the effort. 2-Substantial/Maximal Assistance-helper does MORE THAN HALF the effort. [place] lifts or holds trunk or limbs and provides more than half the effort. 8-Dhkhmbeob-ningse does ALL the effort. Patient does none of the effort to complete the activity. Or, the assistance of 2 or more helpers is required for the patient to complete the activity. If activity was not attempted, code reason: 7-Patient Refused. 9-Not Applicable-not attempted and the patient did not perform the activity before the current illness, exacerbation or injury. 10-Not Attempted due to Environmental Limitations-(lack of equipment, weather restraints, etc.). 88-Not Attempted due to Medical Conditions or Safety Concerns. Education OT Patient Education: Correct positioning, Progress toward Goal/Update tx plan, Safety issues, Transfer techniques Teaching Recipient: Patient, Family Teaching Methods: Demonstration, Discussion Response to Teaching: Verbalize Understanding, Return Demonstration OT Short Term Goals Short Term Goals Time Frame: Jun 04, 2021 Shower/bathe self: 5 Lower body dressin Putting on/taking off footwear: 5 OT [place] Member Goals Tribal Council Member Goals Time Frame: Jun 20, 2021 Eating (QC): 6 Oral Hygiene (QC): 6 Toileting Hygiene (QC): 6 Shower/Bathe Self (QC): 6 Upper Body Dressing (QC): 6 Lower Body Dressing (QC): 6 On/Off Footwear (QC): 6 Additional Goals: 1-Demonstrate ADL Tasks, 2-Verbalize Understanding, 3- ImproveStrength/Samy 1=Demonstrate adherence to instructed precautions during ADL tasks. 2=Patient will verbalize/demonstrate understanding of assistive devices/modifications for ADL. 3=Patient will improve strength/tolerance for activity to enable patient to perform ADL's. OT Education/Plan Problem List/Assessment Assessment: Decreased Activ Tolerance, Impaired I ADL's, Impaired Self-Care Skills Discharge Recommendations Plan/Recommendations: Continue POC Treatment Plan/Plan of Care Patient would benefit from OT for education, treatment and training to promote independence in ADL's, mobility, safety and/or upper extremity function for ADL's. Plan of Care: ADL Retraining, Functional Mobility, Group Exercise/Act as Ind, UE Funct Exercise/Act Treatment Duration: Jun 20, 2021 Frequency: At least 5 of 7 days/Wk (IRF) Estimated Hrs Per Day: 1.5 hours per day Agreement: Yes Rehab Potential: Fair Time/GCodes Start Time: 09:30 Stop Time: 10:30 Total Time Billed (hr/min): 60 Billed Treatment Time 1 visit- ADL 4 (60 mins) LEXUS HERNÁNDEZ Jun 02, 2021 10:29
--- NOTE | 2021-06-02 10:36 | PM&R Progress Note ---
Subjective HPI/CC On Admission Date Seen by Provider: Jun 02, 2021 Time Seen by Provider: 11:00 Subjective/Events-last exam 06/02/2021: Pt working with PT Covid and flu swabs negative Cefdinir mainanted Steroids will be initiated after midline placed We will add cough suppressant 06/01/2021: Patient doing better today Bronchitis treatment tolerated We will give 1 dose of Solu-Medrol in 80mg IM since she does not have IV access Cough is improved 05/31/2021: Patient doing a lot better today Very frail status Cough is productive now Bacterial bronchitis will be initiating antibiotic 05/30/2021: Patient short of breath Oxygen maintained Fully Covid vaccinated with booster including flu Checked labs completed septic work-up and chest x-ray all were negative 05/29/2021: Pt doing okay Had some nausea, received Zofran Biofreeze will be from her home supply Cough is noted but lungs are clear Cardiology will be consulted Review of Systems General: Fatigue, Malaise Pulmonary: Dyspnea, Cough Focused Exam Lactate Level 06/02/21 07:36: Lactic Acid Level 1.50 Lactic Acid Level Objective Exam Vital Signs Vital Signs Date Time Temp Pulse Resp B/P (MAP) Pulse Ox O2 Delivery O2 Flow Rate FiO2 06/03/21 00:29 37.0 06/02/21 21:42 Nasal Cannula 2.00 06/02/21 20:39 98 06/02/21 20:05 93 18 146/69 (94) Capillary Refill : General Appearance: No Apparent Distress, WD/WN, Anxious, Chronically ill HEENT: PERRL/EOMI, Normal ENT Inspection, Pharynx Normal Neck: Full Range of Motion, Normal Inspection, Non Tender, Supple, Carotid B ruit Respiratory: Chest Non Tender, Lungs Clear, Normal Breath Sounds, No Accessory Muscle Use, No Respiratory Distress Cardiovascular: Regular Rate, Rhythm, No Edema, No Gallop, No JVD, No Murmur, Normal Peripheral Pulses Gastrointestinal: Normal Bowel Sounds, No Organomegaly, No Pulsatile Mass, Non Tender, Soft Rectal: Deferred Back: Normal Inspection, No CVA Tenderness, No Vertebral Tenderness Extremity: Normal Capillary Refill, Normal Inspection, Normal Range of Motion, Non Tender, No Calf Tenderness, No Pedal Edema Neurologic/Psychiatric: Alert, Oriented x3, No Motor/Sensory Deficits, Normal Mood/Affect Skin: Normal Color, Warm/Dry, Other (Right carotid endarterectomy incision line) Lymphatic: No Adenopathy Results/Procedures Lab Laboratory Tests 06/02/21 06:00 06/02/21 06:08 Patient resulted labs reviewed. FIM Transfers Therapy Code Descriptions/Definitions Functional [place] Measure: 0=Not Assessed/NA 4=Minimal Assistance 1=Total Assistance 5=Supervision or Setup 2=Maximal Assistance 6=Modified [place] 3=Moderate Assistance 7=Complete IndependenceSCALE: Activities may be completed with or without assistive devices. 0-Trlhfsrbjf-aqglfub completes the activity by him/herself with no assistance from a helper. 5-Set-up or Clean-up Assistance-helper sets up or cleans up; patient completes activity. [place] assists only prior to or following the activity. 4-Supervision or Touching Assistance-helper provides verbal cues and/or touching/steadying and/or contact guard assistance as patient completes a ctivity. Assistance may be provided throughout the activity or intermittently. 3-Partial/Moderate Assistance-helper does LESS THAN HALF the effort. [place] lifts, holds or supports trunk or limbs, but provides less than half the effort. 2-Substantial/Maximal Assistance-helper does MORE THAN HALF the effort. [place] lifts or holds trunk or limbs and provides more than half the effort. 0-Hpitoewmt-gchrtt does ALL the effort. Patient does none of the effort to complete the activity. Or, the assistance of 2 or more helpers is required for the patient to complete the activity. If activity was not attempted, code reason: 7-Patient Refused. 9-Not Applicable-not attempted and the patient did not perform the activity before the current illness, exacerbation or injury. 10-Not Attempted due to Environmental Limitations-(lack of equipment, weather restraints, etc.). 88-Not Attempted due to Medical Conditions or Safety Concerns. Roll Left to Right (QC): 6 Sit to Lying (QC): 6 Sit to Stand (QC): 6 Chair/Nsi-sb-Gwjuf Xfer(QC): 6 Car Transfer (QC): 4 Gait Training Does the Patient Walk?: Yes Walk 10 feet (QC): 5 Walk 50 ft with 2 Turns(QC): 5 Walk 150 ft (QC): 5 Walking 10ft/uneven surface-QC: 4 Gait Persons Needed: 1 Gait Assistive Device: FWW Wheelchair Training Wheel 50 ft with 2 turns (QC): 9 Wheel 150 ft (QC): 9 Stair Training #of Steps: 4 1 Step (curb) (QC): 4 4 Steps (QC): 4 12 Steps (QC): 88 Balance Picking up an Object (QC): 4 ADL-Treatment Eating (QC): 6 (IND with breakfast per pt report.) Oral Hygiene (QC): 4 Shower/Bathe Self (QC): 4 (SBA in standing. Pt able to wash/dry all parts.) Upper Body Dressing (QC): 5 (set up assist.) Lower Body Dressing (QC): 4 (SBA with donning LE clothing.) On/Off Footwear (QC): 3 (Min A. Pt able to doff socks and shoes. Assist to don compression socks, pt able to slip on shoes.) Toileting Hygiene (QC): 4 (SBA, pt able to manage clothing and perform hygiene. ) Toilet Transfer (QC): 4 (SBA on/off toilet.) Assessment/Plan Assessment and Plan Assess & Plan/Chief Complaint Assessment: Debility with weakness Right carotid endarterectomy AF w/RVR s/p cardioversion CHF diastolic type BCC hx Hypoxia uses oxygen at night chronically Fall risk Impulsive and high risk for falls Acute bacterial bronchitis initiate antibiotic on 05/31/2021 Plan: Home meds Cardiology consult Inpatient rehab protocol 05/29/2021: Nausea treatment Rehab protocol 05/30/2021: Oxygen supplementation Septic work-up 05/31/2021: Antibiotic for bacterial bronchitis 06/01/2021: Supportive care Diuresis Bronchitis treatment 06/02/2021: Supportive care IV steroids (1) Chronic heart failure with preserved ejection fraction (HFpEF) Assessment & Plan: I suspect she has some lower extremity edema related to intr avenous fluids given perioperatively at the outside facility. She has received a couple of doses of intravenous Lasix. Unclear whether or not her cough could be a sign of heart failure. She is probably about class II-III at this point in time. She was not taking diuretic at home because she has a tendency to develop dehydration. She should continue with compression stockings during the day. Given the cough, I will obtain a chest x-ray this morning. I have also ordered incentive spirometry. (2) Paroxysmal atrial fibrillation Assessment & Plan: She has been maintaining sinus rhythm as an outpatient on no antiarrhythmic drug. We will continue diltiazem for rate control in the event she has recurrent atrial fibrillation and apixaban for stroke prophylaxis. (3) Primary hypertension Assessment & Plan: Blood pressures had improved since admission but are again elevated over the past 24-48 hours. I will increase her dose of diltiazem from 240 mg daily to 300 mg daily. (4) Mixed hyperlipidemia Assessment & Plan: Continue statin medication. (5) Atherosclerosis of both carotid arteries Assessment & Plan: She is now status post right carotid endarterectomy. The site is healing well. She is on aspirin and statin medication. We may want to discontinue the aspirin in 1 month since she takes apixaban for the atrial fibrillation. This will help reduce the risk of hemorrhagic side effects in an octogenarian. (6) Mitral regurgitation Assessment & Plan: Her most recent echocardiogram from August 2020 only shows mild mitral regurgitation. (7) Pulmonary hypertension Assessment & Plan: This is been mild in the past and is probably related to her advanced age and chronic heart failure. ELVA BEAUCHAMP DO Jun 02, 2021 10:36
--- NOTE | 2021-06-02 10:54 | Physical Therapy Daily Note ---
PT Daily Note-Current Subjective Pt. agrees to Rx, still coughing frequently. Pain Location: No Pain Reported Appearance edema B LEs conts Mental Status Attachments: Oxygen Transfers SCALE: Activities may be completed with or without assistive devices. 2-Qmxavmmtht-ssvwvgt completes the activity by him/herself with no assistance from a helper. 5-Set-up or Clean-up Assistance-helper sets up or cleans up; patient completes activity. [place] assists only prior to or following the activity. 4-Supervision or Touching Assistance-helper provides verbal cues and/or touching/steadying and/or contact guard assistance as patient completes activity. Assistance may be provided throughout the activity or intermittently. 3-Partial/Moderate Assistance-helper does LESS THAN HALF the effort. [place] lifts, holds or supports trunk or limbs, but provides less than half the effort. 2-Substantial/Maximal Assistance-helper does MORE THAN HALF the effort. [place] lifts or holds trunk or limbs and provides more than half the effort. 2-[place]-ptfqeb does ALL the effort. Patient does none of the effort to complete the activity. Or, the assistance of 2 or more helpers is required for the patient to complete the activity. If activity was not attempted, code reason: 7-Patient Refused. 9-Not Applicable-not attempted and the patient did not perform the activity before the current illness, exacerbation or injury. 10-Not Attempted due to Environmental Limitations-(lack of equipment, weather restraints, etc.). 88-Not Attempted due to Medical Conditions or Safety Concerns. sit to stand indep to SBA Weight Bearing 10# lifting restriction and no squatting Exercises Supine Ex: Bridging (x5), Ankle pumps, Quad Set, Glut sets, Heel Slides, Short Arc Quads, Scooting (up in chiar), Straight leg raise, Hip abd/add Supine Reps: 15 Seated Therapy Exercises: Sit to stand, Long arc quads Seated Reps: 10 Assessment Current Status: Good Progress conts coughing frequently PT Short Term Goals Short Term Goals Time Frame: Jun 04, 2021 Roll Left & Right: 6 Sit to lyin Lying to sitting on side of be: 6 Sit to stand: 4 (SBA) Chair/nli-xo-ctnze transfer: 4 (SBA) Walk 10 feet: 4 (SBA) Walk 50 feet with two turns: 4 (SBA) Walk 150 feet: 4 (SBA) 1 step (curb): 4 (SBA) 4 steps: 4 (SBA) PT Kick Press Setter Goals Alf Goals PT Alf Goals Time Frame: Jun 18, 2021 Roll Left & Right (QC): 6 Sit to Lying (QC): 6 Lying-Sitting on Side/Bed(QC): 6 Sit to Stand (QC): 6 Chair/Qas-jr-Wkrke Xfer(QC): 6 Toilet Transfer (QC): 6 Car Transfer (QC): 6 Does the Patient Walk: Yes Walk 10 feet (QC): 6 Walk 50ft with 2 Turns (QC): 6 Walk 150 ft (QC): 6 Walking 10ft on Uneven Surface: 6 1 Step (curb) (QC): 4 (SBA) 4 Steps (QC): 4 (SBA) 12 Steps (QC): 4 (SBA) Picking up an Object (QC): 6 Wheel 50 feet with 2 turns (QC: 9 Wheel 150 feet: 9 PT Plan Treatment/Plan Treatment Plan: Continue Plan of Care Treatment Plan: Bed Mobility, Education, Functional Activity Samy, Functional Strength, Group Therapy, Gait, Safety, Therapeutic Exercise, Transfers Treatment Duration: Jun 18, 2021 Frequency: At least 5 of 7 days/Wk (IRF) Estimated Hrs Per Day: 1.5 hours per day Patient and/or Family Agrees t: Yes Safety Risks/Education Patient Education: Transfer Techniques, Correct Positioning, Disease Process, Safety Issues Teaching Recipient: Patient Teaching Methods: Demonstration, Discussion Response to Teaching: Verbalize Understanding, Return Demonstration, Reinforcement Needed Time/GCodes Time In: 1030 Time Out: 1045 Total Billed Treatment Time: 15 Total Billed Treatment 1,EX15m DARION SANTIAGO CLOTH PICKER Jun 02, 2021 10:54
--- NOTE | 2021-06-02 11:31 | Occupational Ther Daily Note ---
OT Current Status-Daily Note Subjective Pt sitting in recliner when OT entered. Pt agreed to therapy. No c/o pain reported. Mental Status/Objective Patient Orientation: Person, Place, Time, Situation ADL-Treatment Therapy Code Descriptions/Definitions Functional [place] Measure: 0=Not Assessed/NA 4=Minimal Assistance 1=Total Assistance 5=Supervision or Setup 2=Maximal Assistance 6=Modified [place] 3=Moderate Assistance 7=Complete IndependenceSCALE: Activities may be completed with or without assistive devices. 2-Mywmvzmref-hbynqep completes the activity by him/herself with no assistance from a helper. 5-Set-up or Clean-up Assistance-helper sets up or cleans up; patient completes activity. [place] assists only prior to or following the activity. 4-Supervision or Touching Assistance-helper provides verbal cues and/or hallie jay/steadying and/or contact guard assistance as patient completes activity. Assistance may be provided throughout the activity or intermittently. 3-Partial/Moderate Assistance-helper does LESS THAN HALF the effort. [place] lifts, holds or supports trunk or limbs, but provides less than half the effort. 2-Substantial/Maximal Assistance-helper does MORE THAN HALF the effort. [place] lifts or holds trunk or limbs and provides more than half the effort. 8-Ihghrqgaj-rzbbnu does ALL the effort. Patient does none of the effort to complete the activity. Or, the assistance of 2 or more helpers is required for the patient to complete the activity. If activity was not attempted, code reason: 7-Patient Refused. 9-Not Applicable-not attempted and the patient did not perform the activity before the current illness, exacerbation or injury. 10-Not Attempted due to Environmental Limitations-(lack of equipment, weather restraints, etc.). 88-Not Attempted due to Medical Conditions or Safety Concerns. Other Treatment Skilled instruction required of green theraband exerices for correct completion. Pt completed x2 sets of 10 reps of BUE green theraband exercises in all planes to increase BUE strength for improved independence with ADLs. Pt tolerated exercises well. Verbal cues and physical demonstration provided for each exercises for proper technique. Pt required resting break in between set due to increase fatigue. Pt required verbal cues to stay on task due to pt talking about family. After session, pt sitting in recliner. All needs met and call light in reach. Education OT Patient Education: Correct positioning, Energy conservation, Exercise program, Home exercise program Teaching Recipient: Patient Teaching Methods: Demonstration, Handout, Discussion Response to Teaching: Verbalize Understanding, Return Demonstration OT Short Term Goals Short Term Goals Time Frame: Jun 04, 2021 Shower/bathe self: 5 Lower body dressin Putting on/taking off footwear: 5 OT Care Home Goals Care Home Goals Time Frame: Jun 20, 2021 Eating (QC): 6 Oral Hygiene (QC): 6 Toileting Hygiene (QC): 6 Shower/Bathe Self (QC): 6 Upper Body Dressing (QC): 6 Lower Body Dressing (QC): 6 On/Off Footwear (QC): 6 Additional Goals: 1-Demonstrate ADL Tasks, 2-Verbalize Understanding, 3- ImproveStrength/Samy 1=Demonstrate adherence to instructed precautions during ADL tasks. 2=Patient will verbalize/demonstrate understanding of assistive devices/modifications for ADL. 3=Patient will improve strength/tolerance for activity to enable patient to perform ADL's. OT Education/Plan Problem List/Assessment Assessment: Decreased Activ Tolerance, Decreased UE Strength, Impaired I ADL's, Impaired Self-Care Skills Discharge Recommendations Plan/Recommendations: Continue POC Treatment Plan/Plan of Care Patient would benefit from OT for education, treatment and training to promote independence in ADL's, mobility, safety and/or upper extremity function for ADL's. Plan of Care: ADL Retraining, Functional Mobility, Group Exercise/Act as Ind, UE Funct Exercise/Act Treatment Duration: Jun 20, 2021 Frequency: At least 5 of 7 days/Wk (IRF) Estimated Hrs Per Day: 1.5 hours per day Agreement: Yes Rehab Potential: Fair Time/GCodes Start Time: 11:00 Stop Time: 11:30 Total Time Billed (hr/min): 30 Billed Treatment Time 1 visit- EX 2 (30 mins) LEXUS HERNÁNDEZ Jun 02, 2021 11:31
--- NOTE | 2021-06-02 12:13 | Podiatry Progress Note ---
Standard Progress Note Progress Notes/Assess & Plan Date Seen by a Provider: Jun 02, 2021 Time Seen by a Provider: 12:12 Progress/Assessment & Plan Consultation dictated. Foot care given. Follow up as needed. Final Diagnosis Onychomycosis, Edema, Neuropathy MARLENY VALENTINE DPM Jun 02, 2021 12:13
--- NOTE | 2021-06-02 12:54 | Progress Note ---
Subjective Date Seen by a Provider: Jun 02, 2021 Time Seen by a Provider: 12:50 Subjective/Events-last exam Fwup right carotid endarterectomy, HTN, atrial fibrillation, edema, sci atica/neuropathy. C/O cough. Focused Exam Lactate Level 06/02/21 07:36: Lactic Acid Level 1.50 Objective Exam Vital Signs Date Time Temp Pulse Resp B/P (MAP) Pulse Ox O2 Delivery O2 Flow Rate FiO2 06/02/21 09:04 Nasal Cannula 2.00 06/02/21 07:08 37.0 100 20 152/70 (97) 94 Nasal Cannula 2.00 06/02/21 06:45 93 Nasal Cannula 2.00 06/01/21 21:22 93 Nasal Cannula 2.00 06/01/21 21:00 Nasal Cannula 2.00 06/01/21 20:00 36.5 77 18 139/63 (88) 95 Nasal Cannula 2.00 I & O 06/02/21 07:00 Intake Total 1775 ml Output Total 2000 ml Balance -225 ml Capillary Refill : General Appearance: No Apparent Distress Neck: Supple Respiratory: Decreased Breath Sounds Cardiovascular: Regular Rate, Rhythm, Systolic Murmur Gastrointestinal: normal bowel sounds, non tender, soft Extremity: Non Tender, No Calf Tenderness, Pedal Edema Neurologic/Psychiatric: Alert, Oriented x3 Skin: Warm/Dry Results Lab Laboratory Tests 06/02/21 06:00: Sodium Level 137, Potassium Level 3.6, Chloride Level 95L, Carbon Dioxide Level 31, Anion Gap 11, Blood Urea Nitrogen 9, Creatinine 0.70, Estimat Glomerular Filtration Rate 80, BUN/Creatinine Ratio 13, Glucose Level 140H, Calcium Level 9.1, Corrected Calcium 9.3, Total Bilirubin 0.5, Aspartate Amino Transf ( AST/SGOT) 20, Alanine Aminotransferase (ALT/SGPT) 18, Alkaline Phosphatase 66, Total Protein 6.6, Albumin 3.7 06/02/21 06:06: B-Type Natriuretic Peptide 153.6H 06/02/21 06:08: White Blood Count 3.2L, Red Blood Count 3.80, Hemoglobin 12.1, Hematocrit 35, Mean Corpuscular Volume 93, Mean Corpuscular Hemoglobin 32, Mean Corpuscular Hemoglobin Concent 34, Red Cell Distribution Width 11.9, Platelet Count 199, Mean Platelet Volume 9.1, Immature Granulocyte % (Auto) 0, Neutrophils (%) (Auto) 86H, Lymphocytes (%) (Auto) 11L, Monocytes (%) (Auto) 3, Eosinophils (%) (Auto) 0, Basophils (%) (Auto) 0, Neutrophils # (Auto) 2.7, Lymphocytes # (Auto) 0.4L, Monocytes # (Auto) 0.1, Eosinophils # (Auto) 0.0, Basophils # (Auto) 0.0, Immature Granulocyte # (Auto) 0.0, Procalcitonin 0.03 06/02/21 07:36: Lactic Acid Level 1.50 06/02/21 09:10: Influenza Type A (RT-PCR) Not Detected, Influenza Type B (RT-PCR) Not Detected, SARS-CoV-2 RNA (RT-PCR) Not Detected Assessment/Plan Assessment/Plan Assess & Plan/Chief Complaint 1. S/P right carotid endarterectomy--healing well 2. Hypertension--stable 3. Neuropathy/Sciatica--increase gabapentin to 200mg po q HS 4. Bibasilar Atelectesis--encouraged IS use hourly while awake 5. Edema--on lasix daily 6. Hx of Atrial Fibrillation--on eliquis and cardizem 7. Weakness--doing well with PT/OT Clinical Quality Measures Admission Status Admission Dx 1. Right Carotid Artery Stenosis--S/P right carotid endarterectomy--wound healing well 2. History of Atrial Fibrillation with RVR--back on eliquis and cardizem, appears amiodarone has been discontinued on transfer, cardiology consulted 3. Hypertension--on cardizem and doxazosin 4. Post-op Edema--will given lasix and potassium in AM, continue compression hose 5. Bilateral Leg Neuropathy--add low dose gabapentin 6. Hypothyroidism--back on home thyroid dose I will follow along medically GENA GROSSMAN DO Jun 02, 2021 12:54
[2021-06-02] MEDS: methylPREDNISolone 40 MG/ML (Solu-MEDROL) VIAL IV SCH ×2 (14:01→21:29)
--- NOTE | 2021-06-02 14:43 | CONSULTATION REPORT ---
DATE OF SERVICE: 06/02/2021 REASON FOR CONSULTATION: Foot care. HISTORY OF PRESENT ILLNESS: This 81-year-old female underwent an endarterectomy for carotid on the right side in [place] few days ago. She ended up with some pneumonia and then subsequently retained hospitalization and she is now currently going through rehabilitation here at [facility]. PAST MEDICAL HISTORY: The patient has a past medical history, which includes hypertension, AFib, chronic hip and back pain, hypothyroidism, frail status. Also includes kidney infection, bladder infection, scoliosis, sleep deficiency, anxiety. She has a family history of diabetes, thyroid disease, neoplasm, colon cancer. PHYSICAL EXAMINATION: LOWER EXTREMITY: The patient has 2/4 dorsalis pedis pulse, 1/4 posterior tibial pulse bilaterally. Cap refill time is less than 3 seconds. Pitting edema is noted bilateral foot. NEUROLOGIC: The patient has intact protective sensation with 10 gram monofilament wire examination bilaterally. Diminished vibratory sensation to the forefoot bilaterally. She also has diminished deep tendon reflexes to the Achilles tendon bilaterally. DERMATOLOGIC: The patient has thick yellow dystrophic toenail with subungual debris R 1, 3, 4, 5 and L 1, 2, 3, 5 digits. No open lesions are identified bilaterally. She does have some dry scaly skin to the inferior aspect of the foot. Hyperkeratotic lesions are identified to the plantar aspect of the first, second and fifth metatarsal heads bilaterally as well as the medial aspect of the left hallux. She has 4/5 muscle strength to the four major quadrants of the foot. ASSESSMENT: 1. Edema. 2. Onychomycosis. 3. Peripheral neuropathy. 4. Corns and calluses. 5. Hammer digit syndrome. PLAN: Very treatment options were discussed with the patient today. We discussed generalized foot care and appropriate shoe fit. I recommend extra depth shoes to avoid the toes hitting the end of the toe box. Her toenails were debrided today manually mechanically. Betadine applied, this included R 1, 3, 4, 5 and L 1 2, 3, 5 digits. Her hyperkeratotic lesions were debrided in the same location as described above. Betadine applied. The patient is welcome to follow up in my office upon discharge. Job ID: [id number] DocumentID: [id number] Dictated Date: 06/02/2021 12:18:28 Oyster Harvester Date: 06/02/2021 14:42:31 Dictated By: ZAYDA RAJAN
[2021-06-02 20:05] VITALS: BP 146/69
[2021-06-02] MEDS: AtorvaSTATin TABLET 10 MG TABLET PO SCH (21:29)
[2021-06-02] MEDS: ASPIRIN E.C. 81 MG (ECOTRIN) TAB PO SCH (21:29)
[2021-06-02] MEDS: GABAPENTIN 100 MG (NEURONTIN) CAP PO SCH (21:29)
[2021-06-02] MEDS: LACTOBACILLUS ACIDOPHILUS (PROBIOTIC) CAPSULE PO SCH (21:30)
[2021-06-02] MEDS: HYDROcodone/APAP 5 MG/325 MG (LORTAB) TAB PO PRN (21:30)
[2021-06-02] MEDS: DOCUSATE SODIUM 100 MG (COLACE) CAP PO SCH (21:40)
--- NOTE | 2021-06-03 05:59 | PM&R Progress Note ---
Subjective HPI/CC On Admission Date Seen by Provider: Jun 03, 2021 Time Seen by Provider: 09:00 Subjective/Events-last exam 06/03/2021: Pt doing a lot better Coughing a bit Not sleeping too well due to steroids Bowels moved after MiraLax Coarse breath sounds on the lung but much improved 06/02/2021: Pt working with PT Covid and flu swabs negative Cefdinir maintained Steroids will be initiated after midline placed We will add cough suppressant 06/01/2021: Patient doing better today Bronchitis treatment tolerated We will give 1 dose of Solu-Medrol in 80mg IM since she does not have IV access Cough is improved 05/31/2021: Patient doing a lot better today Very frail status Cough is productive now Bacterial bronchitis will be initiating antibiotic 05/30/2021: Patient short of breath Oxygen maintained Fully Covid vaccinated with booster including flu Checked labs completed septic work-up and chest x-ray all were negative 05/29/2021: Pt doing okay Had some nausea, received Zofran Biofreeze will be from her home supply Cough is noted but lungs are clear Cardiology will be consulted Review of Systems General: Fatigue, Malaise Pulmonary: Cough Focused Exam Lactate Level 06/02/21 07:36: Lactic Acid Level 1.50 Objective Exam Vital Signs Vital Signs Date Time Temp Pulse Resp B/P (MAP) Pulse Ox O2 Delivery O2 Flow Rate FiO2 06/03/21 21:26 95 Nasal Cannula 2.00 06/03/21 20:00 37.2 83 20 141/73 (95) Capillary Refill : General Appearance: No Apparent Distress, WD/WN, Anxious, Chronically ill HEENT: PERRL/EOMI, Normal ENT Inspection, Pharynx Normal Neck: Full Range of Motion, Normal Inspection, Non Tender, Supple, Carotid Bruit Respiratory: Chest Non Tender, Normal Breath Sounds, No Accessory Muscle Use, No Respiratory Distress, Crackles Cardiovascular: Regular Rate, Rhythm, No Edema, No Gallop, No JVD, No Murmur, Normal Peripheral Pulses Gastrointestinal: Normal Bowel Sounds, No Organomegaly, No Pulsatile Mass, Non Tender, Soft Rectal: Deferred Back: Normal Inspection, No CVA Tenderness, No Vertebral Tenderness Extremity: Normal Capillary Refill, Normal Inspection, Normal Range of Motion, Non Tender, No Calf Tenderness, No Pedal Edema Neurologic/Psychiatric: Alert, Oriented x3, No Motor/Sensory Deficits, Normal Mood/Affect Skin: Normal Color, Warm/Dry, Other (Right carotid endarterectomy incision line) Lymphatic: No Adenopathy Results/Procedures Lab Laboratory Tests 06/03/21 10:30 Patient resulted labs reviewed. FIM Transfers Therapy Code Descriptions/Definitions Functional [place] Measure: 0=Not Assessed/NA 4=Minimal Assistance 1=Total Assistance 5=Supervision or Setup 2=Maximal Assistance 6=Modified [place] 3=Moderate Assistance 7=Complete IndependenceSCALE: Activities may be completed with or without assistive devices. 4-Ctowonlxok-zzqhzds completes the activity by him/herself with no assistance from a helper. 5-Set-up or Clean-up Assistance-helper sets up or cleans up; patient completes activity. [place] assists only prior to or following the activity. 4-Supervision or Touching Assistance-helper provides verbal cues and/or touching/steadying and/or contact guard assistance as patient completes activity. Assistance may be provided throughout the activity or intermittently. 3-Partial/Moderate Assistance-helper does LESS THAN HALF the effort. [place] lifts, holds or supports trunk or limbs, but provides less than half the effort. 2-Substantial/Maximal Assistance-helper does MORE THAN HALF the effort. [place] lifts or holds trunk or limbs and provides more than half the effort. 9-Ihexbfirl-dnxukb does ALL the effort. Patient does none of the effort to complete the activity. Or, the assistance of 2 or more helpers is required for the patient to complete the activity. If activity was not attempted, code reason: 7-Patient Refused. 9-Not Applicable-not attempted and the patient did not perform the activity before the current illness, exacerbation or injury. 10-Not Attempted due to Environmental Limitations-(lack of equipment, weather restraints, etc.). 88-Not Attempted due to Medical Conditions or Safety Concerns. Roll Left to Right (QC): 6 Sit to Lying (QC): 6 Sit to Stand (QC): 6 Chair/Uri-gt-Skwnm Xfer(QC): 6 Car Transfer (QC): 4 Gait Training Does the Patient Walk?: Yes Walk 10 feet (QC): 5 Walk 50 ft with 2 Turns(QC): 5 Walk 150 ft (QC): 5 Walking 10ft/uneven surface-QC: 4 Gait Persons Needed: 1 Gait Assistive Device: FWW Wheelchair Training Wheel 50 ft with 2 turns (QC): 9 Wheel 150 ft (QC): 9 Stair Training #of Steps: 4 1 Step (curb) (QC): 4 4 Steps (QC): 4 12 Steps (QC): 88 Balance Picking up an Object (QC): 4 ADL-Treatment Eating (QC): 6 (IND with breakfast per pt report.) Oral Hygiene (QC): 4 Shower/Bathe Self (QC): 4 (SBA in standing. Pt able to wash/dry all parts.) Upper Body Dressing (QC): 5 (set up assist.) Lower Body Dressing (QC): 4 (SBA with donning LE clothing.) On/Off Footwear (QC): 3 (Min A. Pt able to doff socks and shoes. Assist to don compression socks, pt able to slip on shoes.) Toileting Hygiene (QC): 4 (SBA, pt able to manage clothing and perform hygiene. ) Toilet Transfer (QC): 4 (SBA on/off toilet.) Assessment/Plan Assessment and Plan Assess & Plan/Chief Complaint Assessment: Debility with weakness Right carotid endarterectomy AF w/RVR s/p cardioversion CHF diastolic type BCC hx Hypoxia uses oxygen at night chronically Fall risk Impulsive and high risk for falls Acute bacterial bronchitis initiate antibiotic on 05/31/2021 Acute exacerbation of COPD placed on steroids on 06/01/2021 Plan: Home meds Cardiology consult Inpatient rehab protocol 05/29/2021: Nausea treatment Rehab protocol 05/30/2021: Oxygen supplementation Septic work-up 05/31/2021: Antibiotic for bacterial bronchitis 06/01/2021: Supportive care Diuresis Bronchitis treatment 06/02/2021: Supportive care IV steroids 06/03/2021: IV steroids Antibiotic (1) Chronic heart failure with preserved ejection fraction (HFpEF) Assessment & Plan: I suspect she has some lower extremity edema related to intravenous fluids given perioperatively at the outside facility. She has received a couple of doses of intravenous Lasix. Unclear whether or not her cough could be a sign of heart failure. She is probably about class II-III at this point in time. She was not taking diuretic at home because she has a tendency to develop dehydration. She should continue with compression stockings during the day. Given the cough, I will obtain a chest x-ray this morning. I have also ordered incentive spirometry. (2) Paroxysmal atrial fibrillation Assessment & Plan: She has been maintaining sinus rhythm as an outpatient on no antiarrhythmic drug. We will continue diltiazem for rate control in the event she has recurrent atrial fibrillation and apixaban for stroke prophylaxis. (3) Primary hypertension Assessment & Plan: Blood pressures had improved since admission but are again elevated over the past 24-48 hours. I will increase her dose of diltiazem from 240 mg daily to 300 mg daily. (4) Mixed hyperlipidemia Assessment & Plan: Continue statin medication. (5) Atherosclerosis of both carotid arteries Assessment & Plan: She is now status post right carotid endarterectomy. The site is healing well. She is on aspirin and statin medication. We may want to discontinue the aspirin in 1 month since she takes apixaban for the atrial fibrillation. This will help reduce the risk of hemorrhagic side effects in an octogenarian. (6) Mitral regurgitation Assessment & Plan: Her most recent echocardiogram from August 2020 only shows mild mitral regurgitation. (7) Pulmonary hypertension Assessment & Plan: This is been mild in the past and is probably related to her advanced age and chronic heart failure. ELVA BEAUCHAMP DO Jun 03, 2021 05:59
[2021-06-03] MEDS: LEVOTHYROXINE 88 MCG (LEVOTHORID) TAB PO SCH (06:22)
[2021-06-03] MEDS: CYANOCOBALAMIN 1,000 MCG (VITAMIN B-12) TABLET PO SCH (06:22)
[2021-06-03] MEDS: HYDROcodone/APAP 5 MG/325 MG (LORTAB) TAB PO PRN ×2 (06:23→21:41)
[2021-06-03] MEDS: RT-ALBUTEROL/IPRATROPIUM 3 ML (DUONEB) VIAL INH SCH ×3 (07:30→21:26)
[2021-06-03 07:33] VITALS: BP 146/69
[2021-06-03] MEDS: doxAzosin 1 MG (CARDURA) TAB PO SCH ×2 (08:00→21:40)
[2021-06-03] MEDS: BENZONATATE 100 MG (TESSALON) CAPSULE PO SCH ×3 (08:00→21:41)
[2021-06-03] MEDS: VITAMIN D3 25 MCG (1,000 UNITS) TABLET PO SCH ×2 (08:00→21:40)
[2021-06-03] MEDS: SENNA W/DOCUSATE (SENOKOT S) TABLET PO SCH ×2 (08:00→21:40)
[2021-06-03] MEDS: ARTIFICAL TEARS 0.4 ML UNIT DOSE (REFRESH PLUS) OU SCH ×3 (08:00→21:42)
[2021-06-03] MEDS: FUROSEMIDE 40 MG (LASIX) TAB PO SCH (08:00)
[2021-06-03] MEDS: CEFDINIR 300 MG (OMNICEF) CAP PO SCH ×2 (08:00→21:40)
[2021-06-03] MEDS: APIXABAN 5 MG (ELIQUIS) TABLET PO SCH ×2 (08:01→21:41)
[2021-06-03] MEDS: LORATADINE (CLARITIN) 10 MG TAB PO SCH (08:01)
[2021-06-03] MEDS: methylPREDNISolone 40 MG/ML (Solu-MEDROL) VIAL IV SCH ×2 (08:03→21:42)
--- NOTE | 2021-06-03 09:00 | Physical Therapy Daily Note ---
PT Daily Note-Current Subjective Pt. sitting EOB eating breakfast, c/o she has not slept, likely b/c of steroids she thinks. Pt. loves to visit and share and this AGRICULTURAL TECHNICAL OFFICER has great difficulty interrupting her to begin therapies. Pt. needs "scooted along" Pain Location: Left Location Body Site: Thigh Pain Description: Burning Comment: pt. believes she has sciatica Mental Status Patient Orientation: Normal For Age Attachments: Oxygen (2L) Transfers SCALE: Activities may be completed with or without assistive devices. 0-Rojlvgfjas-mlmewnd completes the activity by him/herself with no assistance from a helper. 5-Set-up or Clean-up Assistance-helper sets up or cleans up; patient completes activity. [place] assists only prior to or following the activity. 4-Supervision or Touching Assistance-helper provides verbal cues and/or touching/steadying and/or contact guard assistance as patient completes activity. Assistance may be provided throughout the activity or intermittently. 3-Partial/Moderate Assistance-helper does LESS THAN HALF the effort. [place] lifts, holds or supports trunk or limbs, but provides less than half the effort. 2-Substantial/Maximal Assistance-helper does MORE THAN HALF the effort. [place] lifts or holds trunk or limbs and provides more than half the effort. 3-Qtdzeqjnv-fjilld does ALL the effort. Patient does none of the effort to complete the activity. Or, the assistance of 2 or more helpers is required for the patient to complete the activity. If activity was not attempted, code reason: 7-Patient Refused. 9-Not Applicable-not attempted and the patient did not perform the activity before the current illness, exacerbation or injury. 10-Not Attempted due to Environmental Limitations-(lack of equipment, weather restraints, etc.). 88-Not Attempted due to Medical Conditions or Safety Concerns. Roll Left & Right (QC): 6 Sit to Lying (QC): 6 Lying to Sitting/Side of Bed(Q: 6 Sit to Stand (QC): 6 Chair/Qyx-it-Nbuep Xfer(QC): 6 Toilet Transfer (QC): 6 Car Transfer (QC): 6 Weight Bearing 10# lifting restriction and no squatting Gait Training Does the Patient Walk?: Yes Walk 10 feet (QC): 5 Walk 50 ft with 2 Turns(QC): 5 Walk 150 ft (QC): 5 Gait Persons Needed: 1 Gait Assistive Device: FWW 350ft x 2 200ft x 2 FWW SBA, assist for O2 only. Pt. was trialed for gait without FWW at rail in cannon , has good balance but feels more fatigued and unsteady. Stair Training Stair Training: Handrails/: 1 handrail #of Steps: 4 4 Steps (QC): 4 Stairs: Pattern: Reciprocal pt. has 4 stairs at home and simulated her situation Balance Picking up an Object (QC): 5 Exercises Supine Ex: Ankle pumps, Rolling, Glut sets, Heel Slides, Knee to chest, Short Arc Quads, Scooting, Straight leg raise, Hip abd/add Supine Reps: 15 Seated Therapy Exercises: Ankle pumps, Sit to stand, Long arc quads Seated Reps: 15 NuStep Minutes: 10 NuStep Workload: 4 Treatments instructed pt. in bilat piriformis stretches 3 x 20 sec ea. No comment from pt. regarding whether this was relieving etc. Assessment Current Status: Good Progress O2 sats > 90% with all activity PT Short Term Goals Short Term Goals Time Frame: Jun 04, 2021 Roll Left & Right: 6 Sit to lyin Lying to sitting on side of be: 6 Sit to stand: 4 (SBA) Chair/ufn-mi-plwhn transfer: 4 (SBA) Walk 10 feet: 4 (SBA) Walk 50 feet with two turns: 4 (SBA) Walk 150 feet: 4 (SBA) 1 step (curb): 4 (SBA) 4 steps: 4 (SBA) PT Senior Living Goals Senior Living Goals PT White Mixing Operator Goals Time Frame: Jun 18, 2021 Roll Left & Right (QC): 6 Sit to Lying (QC): 6 Lying-Sitting on Side/Bed(QC): 6 Sit to Stand (QC): 6 Chair/Ljs-wz-Quczd Xfer(QC): 6 Toilet Transfer (QC): 6 Car Transfer (QC): 6 Does the Patient Walk: Yes Walk 10 feet (QC): 6 Walk 50ft with 2 Turns (QC): 6 Walk 150 ft (QC): 6 Walking 10ft on Uneven Surface: 6 1 Step (curb) (QC): 4 (SBA) 4 Steps (QC): 4 (SBA) 12 Steps (QC): 4 (SBA) Picking up an Object (QC): 6 Wheel 50 feet with 2 turns (QC: 9 Wheel 150 feet: 9 PT Plan Treatment/Plan Treatment Plan: Continue Plan of Care Treatment Plan: Bed Mobility, Education, Functional Activity Samy, Functional Strength, Group Therapy, Gait, Safety, Therapeutic Exercise, Transfers Treatment Duration: Jun 18, 2021 Frequency: At least 5 of 7 days/Wk (IRF) Estimated Hrs Per Day: 1.5 hours per day Patient and/or Family Agrees t: Yes Safety Risks/Education Patient Education: Gait Training, Transfer Techniques, Steps, Correct Positioning, Disease Process, Safety Issues Teaching Recipient: Patient Teaching Methods: Demonstration, Discussion Response to Teaching: Verbalize Understanding, Return Demonstration, Reinforcement Needed Time/GCodes Time In: 745 Time Out: 900 Total Billed Treatment Time: 75 Total Billed Treatment 1,FA35m,GT15m,EX25 DARION SANTIAGO AGRICULTURAL TECHNICAL OFFICER Jun 03, 2021 09:00
[2021-06-03] MEDS: polyethylene glycoL POWDER 17 GM (MIRALAX) PACK PO SCH ×2 (09:04→22:20)
--- NOTE | 2021-06-03 10:00 | Diagnostic Imaging Report ---
EXAMINATION: PA and lateral chest at 9:35 AM. INDICATION: Shortness of breath. FINDINGS: The heart size is stable when compared to the prior exam of 06/01/2021. The prominent interstitial densities in both lungs seen previously are not quite as striking on this study. There may still be an element of mild pulmonary congestion present. The atelectasis/infiltrate and fluid involving the lung bases seen previously has diminished slightly. The mediastinum is not widened. The osseous structures are intact. The loop recorder device is again noted. IMPRESSION: The appearance of the chest has improved somewhat since the prior exam as there does seem to be less pulmonary congestion and both lung bases are slightly better aerated. A followup study would be recommended for continued evaluation. Dictated by: Dictated on workstation # [id number]
[2021-06-03 11:02] LABS: CREATININE SERUM 0.85 MG/DL (0.60-1.30); POTASSIUM 3.3 MMOL/L (3.6-5.0)
--- NOTE | 2021-06-03 11:04 | Occupational Ther Daily Note ---
OT Current Status-Daily Note Subjective Pt alert, sitting in recliner when OT entered. Pt agreed to therapy. No c/o pain reported. Mental Status/Objective Patient Orientation: Person, Place, Time, Situation ADL-Treatment Pt declined shower or sponge bath at this time. Pt requested to complete g rooming task of washing face and brushing hair. Pt sit-stand from recliner to FWW with SBA. Pt ambulated to bathroom sink using FWW with SBA. Pt participated in washing of face and brushing hair while standing at sink with SBA. Therapy Code Descriptions/Definitions Functional Brick Measure: 0=Not Assessed/NA 4=Minimal Assistance 1=Total Assistance 5=Supervision or Setup 2=Maximal Assistance 6=Modified Brick 3=Moderate Assistance 7=Complete IndependenceSCALE: Activities may be completed with or without assistive devices. 6-Vngpniuoic-wbugmat completes the activity by him/herself with no assistance from a helper. 5-Set-up or Clean-up Assistance-helper sets up or cleans up; patient completes activity. [place] assists only prior to or following the activity. 4-Supervision or Touching Assistance-helper provides verbal cues and/or touching/steadying and/or contact guard assistance as patient completes activity. Assistance may be provided throughout the activity or intermittently. 3-Partial/Moderate Assistance-helper does LESS THAN HALF the effort. [place] lifts, holds or supports trunk or limbs, but provides less than half the effort. 2-Substantial/Maximal Assistance-helper does MORE THAN HALF the effort. [place] lifts or holds trunk or limbs and provides more than half the effort. 5-Ierndssce-hcsyfa does ALL the effort. Patient does none of the effort to complete the activity. Or, the assistance of 2 or more helpers is required for the patient to complete the activity. If activity was not attempted, code reason: 7-Patient Refused. 9-Not Applicable-not attempted and the patient did not perform the activity before the current illness, exacerbation or injury. 10-Not Attempted due to Environmental Limitations-(lack of equipment, weather restraints, etc.). 88-Not Attempted due to Medical Conditions or Safety Concerns. Other Treatment Pt participated in functional mobility task from room to therapy gym using FWW with SBA. Pt completed dynamic standing task of reaching outside MIRIAM to grasp pegs with 1lb weight around each wrist to increase independence and safety with ADLs and IADLs. Pt tolerated task well, required multiple resting break due to fatigue and decreased standing tolerance. Skilled instruction required of 2lb BUE exercises for proper technique. Pt completed x2 sets of 10 reps of BUE shoulder flexion, chest press, elbow flexion, shoulder abduction, and external rotation. Pt demonstrated good technique, required physical demonstration and verbal cues. Pt required resting break due to low activity tolerance. Pt ambulated to [facility] [employer] using FWW with SBA. Pt participated in functional IADL task of locating cones throughout kitchen drawers and [facility] [employer] to improve safety awareness once at home. Pt ambulated back to room using FWW with SBA. Pt transferred to recliner. After session, pt sitting in recliner. Call light in reach and all needs met. Education OT Patient Education: Energy conservation, Exercise program, Home exercise program, Progress toward Goal/Update tx plan, Purpose of tx/functional activities, Safety issues Teaching Recipient: Patient Teaching Methods: Demonstration, Discussion Response to Teaching: Verbalize Understanding, Return Demonstration OT Short Term Goals Short Term Goals Time Frame: Jun 04, 2021 Shower/bathe self: 5 Lower body dressin Putting on/taking off footwear: 5 OT [facility] Goals Gas Usage Meter Clerk Goals Time Frame: Jun 20, 2021 Eating (QC): 6 Oral Hygiene (QC): 6 Toileting Hygiene (QC): 6 Shower/Bathe Self (QC): 6 Upper Body Dressing (QC): 6 Lower Body Dressing (QC): 6 On/Off Footwear (QC): 6 Additional Goals: 1-Demonstrate ADL Tasks, 2-Verbalize Understanding, 3- ImproveStrength/Samy 1=Demonstrate adherence to instructed precautions during ADL tasks. 2=Patient will verbalize/demonstrate understanding of assistive devices/modifications for ADL. 3=Patient will improve strength/tolerance for activity to enable patient to perform ADL's. OT Education/Plan Problem List/Assessment Assessment: Decreased Activ Tolerance, Decreased UE Strength, Impaired I ADL's, Impaired Self-Care Skills Discharge Recommendations Plan/Recommendations: Continue POC Treatment Plan/Plan of Care Patient would benefit from OT for education, treatment and training to promote independence in ADL's, mobility, safety and/or upper extremity function for ADL's. Plan of Care: ADL Retraining, Functional Mobility, Group Exercise/Act as Ind, UE Funct Exercise/Act Treatment Duration: Jun 20, 2021 Frequency: At least 5 of 7 days/Wk (IRF) Estimated Hrs Per Day: 1.5 hours per day Agreement: Yes Rehab Potential: Fair Time/GCodes Start Time: 09:30 Stop Time: 11:00 Total Time Billed (hr/min): 90 Billed Treatment Time 1 visit - ADL 1 ( 8 mins) FA 3 (47 mins) EX 2 (35 mins) LEXUS HERNÁNDEZ Jun 03, 2021 11:04
--- NOTE | 2021-06-03 11:51 | Physical Therapy Daily Note ---
PT Daily Note-Current Subjective Pt. up in recliner. Agrees to Rx. States she feels she is finally making some progress. "If I could just get up and around here by myself" This BEAVER TRAPPER reminds pt. that she is still dependent on O2 and using extended O2 tubing adds a safety complication to her function. Pt. understood. Pt. also comments that she feels so much more freedom in her LEs during exercise Pain Location: No Pain Reported Mental Status Patient Orientation: Normal For Age Attachments: Oxygen (2L) Transfers SCALE: Activities may be completed with or without assistive devices. 0-Cqgkpsgapv-ldxtgpt completes the activity by him/herself with no assistance from a helper. 5-Set-up or Clean-up Assistance-helper sets up or cleans up; patient completes activity. [place] assists only prior to or following the activity. 4-Supervision or Touching Assistance-helper provides verbal cues and/or touching/steadying and/or contact guard assistance as patient completes activity. Assistance may be provided throughout the activity or intermittently. 3-Partial/Moderate Assistance-helper does LESS THAN HALF the effort. [place] lifts, holds or supports trunk or limbs, but provides less than half the effort. 2-Substantial/Maximal Assistance-helper does MORE THAN HALF the effort. [place] lifts or holds trunk or limbs and provides more than half the effort. 4-Bnmqwdznw-jgddnq does ALL the effort. Patient does none of the effort to complete the activity. Or, the assistance of 2 or more helpers is required for the patient to complete the activity. If activity was not attempted, code reason: 7-Patient Refused. 9-Not Applicable-not attempted and the patient did not perform the activity before the current illness, exacerbation or injury. 10-Not Attempted due to Environmental Limitations-(lack of equipment, weather restraints, etc.). 88-Not Attempted due to Medical Conditions or Safety Concerns. all TRFs Mod I Weight Bearing 10# lifting restriction and no squatting Gait Training Does the Patient Walk?: Yes Gait Assistive Device: FWW 200ft x 2 no LOB, SBA only as well as assist for O2 and no c/o SOB or fatigue. Exercises Seated Therapy Exercises: Ankle pumps, Sit to stand, Long arc quads, Hip flexion, Hip abd/add Seated Reps: 20 Assessment Current Status: Good Progress PT Short Term Goals Short Term Goals Time Frame: Jun 04, 2021 Roll Left & Right: 6 Sit to lyin Lying to sitting on side of be: 6 Sit to stand: 4 (SBA) Chair/irb-la-ncgxg transfer: 4 (SBA) Walk 10 feet: 4 (SBA) Walk 50 feet with two turns: 4 (SBA) Walk 150 feet: 4 (SBA) 1 step (curb): 4 (SBA) 4 steps: 4 (SBA) PT Intermediate Goals Intermediate Goals PT Multi Line Claims Adjuster Goals Time Frame: Jun 18, 2021 Roll Left & Right (QC): 6 Sit to Lying (QC): 6 Lying-Sitting on Side/Bed(QC): 6 Sit to Stand (QC): 6 Chair/Fgq-pm-Xkxrd Xfer(QC): 6 Toilet Transfer (QC): 6 Car Transfer (QC): 6 Does the Patient Walk: Yes Walk 10 feet (QC): 6 Walk 50ft with 2 Turns (QC): 6 Walk 150 ft (QC): 6 Walking 10ft on Uneven Surface: 6 1 Step (curb) (QC): 4 (SBA) 4 Steps (QC): 4 (SBA) 12 Steps (QC): 4 (SBA) Picking up an Object (QC): 6 Wheel 50 feet with 2 turns (QC: 9 Wheel 150 feet: 9 PT Plan Treatment/Plan Treatment Plan: Continue Plan of Care Treatment Plan: Bed Mobility, Education, Functional Activity Samy, Functional Strength, Group Therapy, Gait, Safety, Therapeutic Exercise, Transfers Treatment Duration: Jun 18, 2021 Frequency: At least 5 of 7 days/Wk (IRF) Estimated Hrs Per Day: 1.5 hours per day Patient and/or Family Agrees t: Yes Safety Risks/Education Patient Education: Gait Training, Transfer Techniques, Safety Issues Teaching Recipient: Patient Response to Teaching: Reinforcement Needed Time/GCodes Time In: 1135 Time Out: 1155 Total Billed Treatment Time: 20 Total Billed Treatment 1,GT20m DARION SANTIAGO BEAVER TRAPPER Jun 03, 2021 11:51
[2021-06-03] MEDS ORDERED: KCL 8 MEQ (MICRO K) TABLET PO ONE (12:30)
--- NOTE | 2021-06-03 12:30 | Progress Note ---
Subjective Date Seen by a Provider: Jun 03, 2021 Time Seen by a Provider: 12:28 Subjective/Events-last exam Fwup right carotid endarterectomy, HTN, atrial fibrillation, edema, sci atica/neuropathy, atelectesis/cough. More energy today. Cough not as bad. Pain in legs improving as well. Focused Exam Lactate Level 06/02/21 07:36: Lactic Acid Level 1.50 Objective Exam Vital Signs Date Time Temp Pulse Resp B/P (MAP) Pulse Ox O2 Delivery O2 Flow Rate FiO2 06/03/21 09:39 Nasal Cannula 2.00 06/03/21 07:33 36.8 79 16 146/69 (94) 97 Nasal Cannula 2.00 06/03/21 07:30 95 Nasal Cannula 2.00 06/03/21 00:29 37.0 06/02/21 21:42 Nasal Cannula 2.00 06/02/21 20:39 98 Nasal Cannula 2.00 06/02/21 20:05 37.4 93 18 146/69 (94) 94 Nasal Cannula 2.00 06/02/21 15:17 94 Nasal Cannula 2.00 I & O 06/03/21 07:00 Intake Total 2250 ml Output Total 2150 ml Balance 100 ml Capillary Refill : General Appearance: No Apparent Distress Neck: Supple Respiratory: Decreased Breath Sounds Cardiovascular: Regular Rate, Rhythm, Systolic Murmur Gastrointestinal: normal bowel sounds, non tender, soft Extremity: Non Tender, No Calf Tenderness, No Pedal Edema Neurologic/Psychiatric: Alert, Oriented x3 Skin: Warm/Dry Results Lab Laboratory Tests 06/03/21 10:30: Sodium Level 136, Potassium Level 3.3L, Chloride Level 94L, Carbon Dioxide Level 29, Anion Gap 13, Blood Urea Nitrogen 17, Creatinine 0.85, Estimat Glomerular Filtration Rate 64, BUN/Creatinine Ratio 20, Glucose Level 142H, Calcium Level 9.0 Assessment/Plan Assessment/Plan Assess & Plan/Chief Complaint 1. S/P right carotid endarterectomy--healing well 2. Hypertension--stable 3. Neuropathy/Sciatica--on gabapentin 4. Bibasilar Atelectesis/Cough--encouraged IS use hourly while awake, steroids started 5. Edema--on lasix daily 6. Hx of Atrial Fibrillation--on eliquis and cardizem 7. Weakness--doing well with PT/OT 8. Hypokalemia--start oral potassium replacement Clinical Quality Measures Admission Status Admission Dx 1. Right Carotid Artery Stenosis--S/P right carotid endarterectomy--wound healing well 2. History of Atrial Fibrillation with RVR--back on eliquis and cardizem, appears amiodarone has been discontinued on transfer, cardiology consulted 3. Hypertension--on cardizem and doxazosin 4. Post-op Edema--will given lasix and potassium in AM, continue compression hose 5. Bilateral Leg Neuropathy--add low dose gabapentin 6. Hypothyroidism--back on home thyroid dose I will follow along medically GENA GROSSMAN DO Jun 03, 2021 12:30
--- NOTE | 2021-06-03 19:46 | Cardiology Progress Note ---
Progress Note-Cardiology Events since last exam Date Seen by Provider: Jun 03, 2021 Time Seen by Provider: 19:42 Events since last exam I am following her due to heart failure and paroxysmal atrial fibrillation. She remains in the inpatient rehab unit. Her peripheral edema persists. She denies dyspnea. She denies chest discomfort, palpitations, or syncope. Certain portions of this document may have been dictated utilizing voice recognition technology. Inherent to this technology, typographical and gra mmatical errors may exist. As much as I am diligent to identify and correct these mistakes, some errors may remain in the document. Vitals Last set of Vitals Signs Vital Signs 06/03/21 06/03/21 07:33 09:39 Temp 36.8 Pulse 79 Resp 16 B/P (MAP) 146/69 (94) Pulse Ox 97 O2 Delivery Nasal Cannula O2 Flow Rate 2.00 Labs Labs Laboratory Tests 06/03/21 10:30 Exam Vital Signs Vital Signs Date Time Temp Pulse Resp B/P (MAP) Pulse Ox O2 Delivery O2 Flow Rate FiO2 06/03/21 09:39 Nasal Cannula 2.00 06/03/21 07:33 36.8 79 16 146/69 (94) 97 Physical Exam General: Alert. No acute distress. Eye: No xanthelasma. HENT: Normocephalic. Neck: Jugular venous pressure does not appear elevated. Respiratory: Lungs are clear to auscultation. Respirations are non-labored. Breath sounds are equal. Symmetrical chest wall expansion. Cardiovascular: Normal rate. Regular rhythm. No murmur. No gallop. 1+ bilateral pretibial edema with compression stockings in place. Gastrointestinal: Soft. Normal bowel sounds. Skin: Warm. Dry. Neurologic: Alert and oriented to person, place, time. Cranial nerves 3-11 grossly intact. Psychiatric: Cooperative. Appropriate mood & affect. Labs Laboratory Tests Test 06/03/21 10:30 Range/Units Sodium Level 136 135-145 MMOL/L Potassium Level 3.3 L 3.6-5.0 MMOL/L Chloride Level 94 L 98-107 MMOL/L Carbon Dioxide Level 29 21-32 MMOL/L Anion Gap 13 5-14 MMOL/L Blood Urea Nitrogen 17 7-18 MG/DL Creatinine 0.85 0.60-1.30 MG/DL Estimat Glomerular Filtration Rate 64 BUN/Creatinine Ratio 20 Glucose Level 142 H 70-105 MG/DL Calcium Level 9.0 8.5-10.1 MG/DL Diagnosis/Problems Diagnosis/Problems (1) Chronic heart failure with preserved ejection fraction (HFpEF) Assessment & Plan: Her peripheral edema is chronic and persists here in the hospital. I would just recommend that she continue to use compression stockings and take low-dose oral diuretic. (2) Paroxysmal atrial fibrillation Assessment & Plan: She has been maintaining sinus rhythm as an outpatient on no antiarrhythmic drug. We will continue diltiazem for rate control in the event she has recurrent atrial fibrillation and apixaban for stroke prophylaxis. (3) Primary hypertension Assessment & Plan: Blood pressures had improved since admission but then became elevated. I previously increase the dose of diltiazem from 240 mg to 300 mg daily. Her blood pressures are still intermittently elevated. If this persists, we may need to make additional adjustments to her antihypertensive medication. (4) Mixed hyperlipidemia Assessment & Plan: Continue statin medication. (5) Atherosclerosis of both carotid arteries Assessment & Plan: She is now status post right carotid endarterectomy. The site is healing well. She is on aspirin and statin medication. We may want to discontinue the aspirin in 1 month since she takes apixaban for the atrial fibrillation. This will help reduce the risk of hemorrhagic side effects in an octogenarian. (6) Mitral regurgitation Assessment & Plan: Her most recent echocardiogram from August 2020 only shows m ild mitral regurgitation. (7) Pulmonary hypertension Assessment & Plan: This is been mild in the past and is probably related to her advanced age and chronic heart failure. JAIRON MORRISSEY JR, MD Jun 03, 2021 19:45
[2021-06-03 20:00] VITALS: BP 141/73
[2021-06-03] MEDS: LACTOBACILLUS ACIDOPHILUS (PROBIOTIC) CAPSULE PO SCH (21:40)
[2021-06-03] MEDS: GABAPENTIN 100 MG (NEURONTIN) CAP PO SCH (21:40)
[2021-06-03] MEDS: ASPIRIN E.C. 81 MG (ECOTRIN) TAB PO SCH (21:40)
[2021-06-03] MEDS: AtorvaSTATin TABLET 10 MG TABLET PO SCH (21:41)
[2021-06-03] MEDS: DOCUSATE SODIUM 100 MG (COLACE) CAP PO SCH (21:41)
--- NOTE | 2021-06-04 06:46 | PM&R Progress Note ---
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 causes the Robitussin to burn Discharge planned for but she is very hesitant and does not feel like she is ready to go Home O2 evaluation will be initiated 06/03/2021: Pt doing a lot better Coughing a bit Not sleeping too well due to steroids Bowels moved after MiraLax Coarse breath sounds on the lung but much improved 06/02/2021: Pt working with PT Covid and flu swabs negative Cefdinir maintained Steroids will be initiated after midline placed We will add cough suppressant 06/01/2021: Patient doing better today Bronchitis treatment tolerated We will give 1 dose of Solu-Medrol in 80mg IM since she does not have IV access Cough is improved 05/31/2021: Patient doing a lot better today Very frail status Cough is productive now Bacterial bronchitis will be initiating antibiotic 05/30/2021: Patient short of breath Oxygen maintained Fully Covid vaccinated with booster including flu Checked labs completed septic work-up and chest x-ray all were negative 05/29/2021: Pt doing okay Had some nausea, received Zofran Biofreeze will be from her home supply Cough is noted but lungs are clear Cardiology will be consulted Review of Systems General: Fatigue, Malaise Pulmonary: Dyspnea, Cough Focused Exam Lactate Level 06/02/21 07:36: Lactic Acid Level 1.50 Objective Exam Vital Signs Vital Signs Date Time Temp Pulse Resp B/P (MAP) Pulse Ox O2 Delivery O2 Flow Rate FiO2 06/04/21 21:30 Nasal Cannula 2.00 06/04/21 21:12 94 06/04/21 20:48 36.8 86 18 162/72 (102) Capillary Refill : General Appearance: No Apparent Distress, WD/WN, Anxious, Chronically ill HEENT: PERRL/EOMI, Normal ENT Inspection, Pharynx Normal Neck: Full Range of Motion, Normal Inspection, Non Tender, Supple, Carotid Bruit Respiratory: Chest Non Tender, Lungs Clear, Normal Breath Sounds, No Accessory Muscle Use, No Respiratory Distress Cardiovascular: Regular Rate, Rhythm, No Edema, No Gallop, No JVD, No Murmur, Normal Peripheral Pulses Gastrointestinal: Normal Bowel Sounds, No Organomegaly, No Pulsatile Mass, Non Tender, Soft Rectal: Deferred Back: Normal Inspection, No CVA Tenderness, No Vertebral Tenderness Extremity: Normal Capillary Refill, Normal Inspection, Normal Range of Motion, Non Tender, No Calf Tenderness, No Pedal Edema Neurologic/Psychiatric: Alert, Oriented x3, No Motor/Sensory Deficits, Normal Mood/Affect Skin: Normal Color, Warm/Dry, Other (Right carotid endarterectomy incision line) Lymphatic: No Adenopathy Results/Procedures Lab Patient resulted labs reviewed. FIM Transfers Therapy Code Descriptions/Definitions Functional [place] Measure: 0=Not Assessed/NA 4=Minimal Assistance 1=Total Assistance 5=Supervision or Setup 2=Maximal Assistance 6=Modified [place] 3=Moderate Assistance 7=Complete IndependenceSCALE: Activities may be completed with or without assistive devices. 4-Koznfctxtj-kscmxxu completes the activity by him/herself with no assistance from a helper. 5-Set-up or Clean-up Assistance-helper sets up or cleans up; patient completes activity. [place] assists only prior to or following the activity. 4-Supervision or Touching Assistance-helper provides verbal cues and/or touching/steadying and/or contact guard assistance as patient completes activity. Assistance may be provided throughout the activity or intermittently. 3-Partial/Moderate Assistance-helper does LESS THAN HALF the effort. [place] lifts, holds or supports trunk or limbs, but provides less than half the effort. 2-Substantial/Maximal Assistance-helper does MORE THAN HALF the effort. [place] lifts or holds trunk or limbs and provides more than half the effort. 7-Foukhqtcr-jnkbuk does ALL the effort. Patient does none of the effort to comp lete the activity. Or, the assistance of 2 or more helpers is required for the patient to complete the activity. If activity was not attempted, code reason: 7-Patient Refused. 9-Not Applicable-not attempted and the patient did not perform the activity before the current illness, exacerbation or injury. 10-Not Attempted due to Environmental Limitations-(lack of equipment, weather restraints, etc.). 88-Not Attempted due to Medical Conditions or Safety Concerns. Roll Left to Right (QC): 6 Sit to Lying (QC): 6 Sit to Stand (QC): 6 Chair/Wof-tk-Sfiqa Xfer(QC): 6 Car Transfer (QC): 6 Gait Training Does the Patient Walk?: Yes Walk 10 feet (QC): 5 Walk 50 ft with 2 Turns(QC): 5 Walk 150 ft (QC): 5 Walking 10ft/uneven surface-QC: 4 Gait Persons Needed: 1 Gait Assistive Device: FWW Wheelchair Training Wheel 50 ft with 2 turns (QC): 9 Wheel 150 ft (QC): 9 Stair Training Stair Training: Handrails/: 1 handrail #of Steps: 4 1 Step (curb) (QC): 4 4 Steps (QC): 4 12 Steps (QC): 88 Stairs: Pattern: Reciprocal Balance Picking up an Object (QC): 5 ADL-Treatment Eating (QC): 6 (IND with breakfast per pt report.) Oral Hygiene (QC): 4 Shower/Bathe Self (QC): 4 (SBA in standing. Pt able to wash/dry all parts.) Upper Body Dressing (QC): 5 (set up assist.) Lower Body Dressing (QC): 4 (SBA with donning LE clothing.) On/Off Footwear (QC): 3 (Min A. Pt able to doff socks and shoes. Assist to don compression socks, pt able to slip on shoes.) Toileting Hygiene (QC): 4 (SBA, pt able to manage clothing and perform hygiene. ) Toilet Transfer (QC): 4 (SBA on/off toilet.) Assessment/Plan Assessment and Plan Assess & Plan/Chief Complaint Assessment: Debility with weakness Right carotid endarterectomy AF w/RVR s/p cardioversion CHF diastolic type BCC hx Hypoxia uses oxygen at night chronically Fall risk Impulsive and high risk for falls Acute bacterial bronchitis initiate antibiotic on 05/31/2021 Acute exacerbation of COPD placed on steroids on 06/01/2021 Plan: Home meds Cardiology consult Inpatient rehab protocol 05/29/2021: Nausea treatment Rehab protocol 05/30/2021: Oxygen supplementation Septic work-up 05/31/2021: Antibiotic for bacterial bronchitis 06/01/2021: Supportive care Diuresis Bronchitis treatment 06/02/2021: Supportive care IV steroids 06/03/2021: IV steroids Antibiotic 06/04/2021: Patient resistant of discharge tomorrow Wean O2 (1) Chronic heart failure with preserved ejection fraction (HFpEF) Assessment & Plan: Her peripheral edema is chronic and persists here in the hospital. I would just recommend that she continue to use compression stockings and take low-dose oral diuretic. (2) Paroxysmal atrial fibrillation Assessment & Plan: She has been maintaining sinus rhythm as an outpatient on no antiarrhythmic drug. We will continue diltiazem for rate control in the event she has recurrent atrial fibrillation and apixaban for stroke prophylaxis. (3) Primary hypertension Assessment & Plan: Blood pressures had improved since admission but then became elevated. I previously increase the dose of diltiazem from 240 mg to 300 mg daily. Her blood pressures are still intermittently elevated. If this persists, we may need to make additional adjustments to her antihypertensive medication. (4) Mixed hyperlipidemia Assessment & Plan: Continue statin medication. (5) Atherosclerosis of both carotid arteries Assessment & Plan: She is now status post right carotid endarterectomy. The site is healing well. She is on aspirin and statin medication. We may want to discontinue the aspirin in 1 month since she takes apixaban for the atrial fibrillation. This will help reduce the risk of hemorrhagic side effects in an octogenarian. (6) Mitral regurgitation Assessment & Plan: Her most recent echocardiogram from August 2020 only shows mild mitral regurgitation. (7) Pulmonary hypertension Assessment & Plan: This is been mild in the past and is probably related to her advanced age and chronic heart failure. ELVA BEAUCHAMP DO Jun 04, 2021 06:46
[2021-06-04] MEDS: KCL 8 MEQ (MICRO K) TABLET PO SCH (07:18)
[2021-06-04] MEDS: LEVOTHYROXINE 88 MCG (LEVOTHORID) TAB PO SCH (07:18)
[2021-06-04] MEDS: CYANOCOBALAMIN 1,000 MCG (VITAMIN B-12) TABLET PO SCH (07:18)
[2021-06-04] MEDS: BENZONATATE 100 MG (TESSALON) CAPSULE PO SCH ×3 (07:53→20:22)
[2021-06-04] MEDS: VITAMIN D3 25 MCG (1,000 UNITS) TABLET PO SCH ×2 (07:53→20:22)
[2021-06-04] MEDS: doxAzosin 1 MG (CARDURA) TAB PO SCH ×2 (07:53→20:21)
[2021-06-04] MEDS: CEFDINIR 300 MG (OMNICEF) CAP PO SCH ×2 (07:53→20:22)
[2021-06-04 07:54] VITALS: BP 157/70
[2021-06-04] MEDS: LORATADINE (CLARITIN) 10 MG TAB PO SCH (07:54)
[2021-06-04] MEDS: APIXABAN 5 MG (ELIQUIS) TABLET PO SCH ×2 (07:54→20:22)
[2021-06-04] MEDS: ARTIFICAL TEARS 0.4 ML UNIT DOSE (REFRESH PLUS) OU SCH ×3 (07:54→20:24)
[2021-06-04] MEDS: methylPREDNISolone 40 MG/ML (Solu-MEDROL) VIAL IV SCH ×2 (07:54→20:23)
[2021-06-04] MEDS: FUROSEMIDE 40 MG (LASIX) TAB PO SCH (07:54)
[2021-06-04] MEDS: HYDROcodone/APAP 5 MG/325 MG (LORTAB) TAB PO PRN (07:57)
[2021-06-04] MEDS: MAGNESIUM OXIDE (MAG-OX)400 MG TAB PO SCH (07:57)
[2021-06-04] MEDS: polyethylene glycoL POWDER 17 GM (MIRALAX) PACK PO SCH ×2 (08:08→19:24)
[2021-06-04] MEDS: SENNA W/DOCUSATE (SENOKOT S) TABLET PO SCH ×2 (08:09→19:24)
[2021-06-04] MEDS: RT-ALBUTEROL/IPRATROPIUM 3 ML (DUONEB) VIAL INH SCH ×3 (09:03→21:09)
--- NOTE | 2021-06-04 09:05 | Physical Therapy Daily Note ---
PT Daily Note-Current Subjective Pt. agrees to Rx. Slept a little better. Hopes to have a BM today. Pt is concerned about her incision and feels the O2 cannula may be causing some issues and irritation to it. Nursing was called to take a look at this . Pain Numeric Pain Scale: 3 Location: Right Location Body Site: Neck (incision) Pain Description: Acute Mental Status Patient Orientation: Normal For Age Attachments: Oxygen (2L) Transfers SCALE: Activities may be completed with or without assistive devices. 8-Xcxnhiheol-lisunck completes the activity by him/herself with no assistance from a helper. 5-Set-up or Clean-up Assistance-helper sets up or cleans up; patient completes activity. [place] assists only prior to or following the activity. 4-Supervision or Touching Assistance-helper provides verbal cues and/or touching/steadying and/or contact guard assistance as patient completes acti vity. Assistance may be provided throughout the activity or intermittently. 3-Partial/Moderate Assistance-helper does LESS THAN HALF the effort. [place] lifts, holds or supports trunk or limbs, but provides less than half the effort. 2-Substantial/Maximal Assistance-helper does MORE THAN HALF the effort. [place] lifts or holds trunk or limbs and provides more than half the effort. 8-Hqlihhequ-fpawug does ALL the effort. Patient does none of the effort to complete the activity. Or, the assistance of 2 or more helpers is required for the patient to complete the activity. If activity was not attempted, code reason: 7-Patient Refused. 9-Not Applicable-not attempted and the patient did not perform the activity before the current illness, exacerbation or injury. 10-Not Attempted due to Environmental Limitations-(lack of equipment, weather restraints, etc.). 88-Not Attempted due to Medical Conditions or Safety Concerns. Roll Left & Right (QC): 6 Sit to Lying (QC): 6 Lying to Sitting/Side of Bed(Q: 6 Sit to Stand (QC): 6 Chair/Lzv-rf-Yjcft Xfer(QC): 6 Toilet Transfer (QC): 6 Weight Bearing 10# lifting restriction and no squatting Gait Training Does the Patient Walk?: Yes Walk 10 feet (QC): 5 Walk 50 ft with 2 Turns(QC): 5 Walk 150 ft (QC): 5 Gait Persons Needed: 1 (for o2 only) Gait Assistive Device: FWW [id number], O2 sats 90% and HR101 after walking this dist Exercises Supine Ex: Ankle pumps, Quad Set, Glut sets, Heel Slides Supine Reps: 20 Seated Therapy Exercises: Ankle pumps, Sit to stand, Long arc quads, Hip fle xion, Hip abd/add Seated Reps: 15 NuStep Minutes: 8 NuStep Workload: 5 Treatments toileted for BM and managed ell indep, O2 cannula moved to back where it does not touch neck or incision, pt. able to ta compression knee highs indep in recliner with feet raised Assessment Current Status: Good Progress cough still conts , sats drop with activity but not below 90% this date PT Short Term Goals Short Term Goals Time Frame: Jun 04, 2021 Roll Left & Right: 6 Sit to lyin Lying to sitting on side of be: 6 Sit to stand: 4 (SBA) Chair/rzs-vo-nicwp transfer: 4 (SBA) Walk 10 feet: 4 (SBA) Walk 50 feet with two turns: 4 (SBA) Walk 150 feet: 4 (SBA) 1 step (curb): 4 (SBA) 4 steps: 4 (SBA) PT Nursing Home Goals [employer] Goals PT Nursing Home Goals Time Frame: Jun 18, 2021 Roll Left & Right (QC): 6 Sit to Lying (QC): 6 Lying-Sitting on Side/Bed(QC): 6 Sit to Stand (QC): 6 Chair/Mpe-nh-Ctjah Xfer(QC): 6 Toilet Transfer (QC): 6 Car Transfer (QC): 6 Does the Patient Walk: Yes Walk 10 feet (QC): 6 Walk 50ft with 2 Turns (QC): 6 Walk 150 ft (QC): 6 Walking 10ft on Uneven Surface: 6 1 Step (curb) (QC): 4 (SBA) 4 Steps (QC): 4 (SBA) 12 Steps (QC): 4 (SBA) Picking up an Object (QC): 6 Wheel 50 feet with 2 turns (QC: 9 Wheel 150 feet: 9 PT Plan Treatment/Plan Treatment Plan: Continue Plan of Care Treatment Plan: Bed Mobility, Education, Functional Activity Samy, Functional Strength, Group Therapy, Gait, Safety, Therapeutic Exercise, Transfers Treatment Duration: Jun 18, 2021 Frequency: At least 5 of 7 days/Wk (IRF) Estimated Hrs Per Day: 1.5 hours per day Patient and/or Family Agrees t: Yes Safety Risks/Education Patient Education: Gait Training, Transfer Techniques, Correct Positioning, Safety Issues Time/GCodes Time In: 800 Time Out: 900 Total Billed Treatment Time: 60 Total Billed Treatment 1,GT20m,FA15m,EX25m DARION SANTIAGO CNMT Jun 04, 2021 09:05
--- NOTE | 2021-06-04 10:11 | Occupational Ther Daily Note ---
OT Current Status-Daily Note Subjective Pt in recliner. Pt agreeable to OT tx. Mental Status/Objective Patient Orientation: Person, Place, Situation Attachments: IV ADL-Treatment Therapy Code Descriptions/Definitions Functional [place] Measure: 0=Not Assessed/NA 4=Minimal Assistance 1=Total Assistance 5=Supervision or Setup 2=Maximal Assistance 6=Modified [place] 3=Moderate Assistance 7=Complete IndependenceSCALE: Activities may be completed with or without assistive devices. 5-Lqhmjtqvvc-qomddzo completes the activity by him/herself with no assistance from a helper. 5-Set-up or Clean-up Assistance-helper sets up or cleans up; patient completes activity. [place] assists only prior to or following the activity. 4-Supervision or Touching Assistance-helper provides verbal cues and/or touching/steadying and/or contact guard assistance as patient completes activity. Assistance may be provided throughout the activity or intermittently. 3-Partial/Moderate Assistance-helper does LESS THAN HALF the effort. [place] lifts, holds or supports trunk or limbs, but provides less than half the effort. 2-Substantial/Maximal Assistance-helper does MORE THAN HALF the effort. [place] lifts or holds trunk or limbs and provides more than half the effort. 6-Wtnserobq-mqhzfc does ALL the effort. Patient does none of the effort to complete the activity. Or, the assistance of 2 or more helpers is required for the patient to complete the activity. If activity was not attempted, code reason: 7-Patient Refused. 9-Not Applicable-not attempted and the patient did not perform the activity before the current illness, exacerbation or injury. 10-Not Attempted due to Environmental Limitations-(lack of equipment, weather restraints, etc.). 88-Not Attempted due to Medical Conditions or Safety Concerns. Eating (QC): 6 Oral Hygiene (QC): 6 Bathing Location: L Arm, R Arm, L Upper Leg, R Upper Leg, L Lower Leg (including foot), R Lower Leg (including foot), Chest, Abdomen, Buttocks, Perineal Area Shower/Bathe Self (QC): 5 (Set up before. Clean up after.) Upper Body Dressing (QC): 6 Lower Body Dressing (QC): 6 On/Off Footwear: 6 Toileting Hygiene (QC): 6 (Per clincial judgment.) Other Treatment Pt in recliner. Pt transitioned to bathroom chair with FWW SBA. Pt doffed shirt, pants, socks and shoes independently. Pt completed showering independently. Pt transitioned back to bathroom chair, FWW, SBA, to don shirt, pants, socks and shoes independently. Pt transitioned to therapy gym with FWW, SBA. Pt completed arm bike with low resistance for 15 mins to work on BUE strengthening. Pt removed beads from moderate resistance theraputty in order to increase fine motor strength. Pt used FWW to return to her room, transferring to recliner. Post tx, pt up in recliner, call light in reach and all needs met. Education OT Patient Education: Correct positioning, Energy conservation, Exercise program, Progress toward Goal/Update tx plan, Purpose of tx/functional activities, Rehab process Teaching Recipient: Patient Teaching Methods: Discussion Response to Teaching: Verbalize Understanding OT Short Term Goals Short Term Goals Time Frame: Jun 04, 2021 Shower/bathe self: 5 Lower body dressin Putting on/taking off footwear: 5 OT Usp Goals Usp Goals Time Frame: Jun 20, 2021 Eating (QC): 6 Oral Hygiene (QC): 6 Toileting Hygiene (QC): 6 Shower/Bathe Self (QC): 6 Upper Body Dressing (QC): 6 Lower Body Dressing (QC): 6 On/Off Footwear (QC): 6 Additional Goals: 1-Demonstrate ADL Tasks, 2-Verbalize Understanding, 3- ImproveStrength/Samy 1=Demonstrate adherence to instructed precautions during ADL tasks. 2=Patient will verbalize/demonstrate understanding of assistive devices/modifications for ADL. 3=Patient will improve strength/tolerance for activity to enable patient to perform ADL's. OT Education/Plan Problem List/Assessment Assessment: Decreased Activ Tolerance, Decreased UE Strength, Impaired Funct Balance, Impaired Self-Care Skills Discharge Recommendations Plan/Recommendations: Continue POC Treatment Plan/Plan of Care Patient would benefit from OT for education, treatment and training to promote independence in ADL's, mobility, safety and/or upper extremity function for ADL's. Plan of Care: ADL Retraining, Functional Mobility, Group Exercise/Act as Ind, UE Funct Exercise/Act Treatment Duration: Jun 20, 2021 Frequency: At least 5 of 7 days/Wk (IRF) Estimated Hrs Per Day: 1.5 hours per day Agreement: Yes Rehab Potential: Fair Time/GCodes Start Time: 09:00 Stop Time: 10:30 Total Time Billed (hr/min): 90 Billed Treatment Time 1, ADL 4 (60), EX (15), FA (15) BERTRAM SCHULTZ OT Jun 04, 2021 10:10
[2021-06-04] MEDS: guaiFENesin (MUCINEX) 600 MG TAB PO SCH ×2 (10:22→20:22)
--- NOTE | 2021-06-04 15:08 | Physical Therapy Daily Note ---
PT Daily Note-Current Subjective Pt reports she is ready for a walk. Reports no leg pain at present. Transfers SCALE: Activities may be completed with or without assistive devices. 9-Zpxxxvoldu-jvdzkrj completes the activity by him/herself with no assistance from a helper. 5-Set-up or Clean-up Assistance-helper sets up or cleans up; patient completes activity. [place] assists only prior to or following the activity. 4-Supervision or Touching Assistance-helper provides verbal cues and/or touching/steadying and/or contact guard assistance as patient completes ac tivity. Assistance may be provided throughout the activity or intermittently. 3-Partial/Moderate Assistance-helper does LESS THAN HALF the effort. [place] lifts, holds or supports trunk or limbs, but provides less than half the effort. 2-Substantial/Maximal Assistance-helper does MORE THAN HALF the effort. [place] lifts or holds trunk or limbs and provides more than half the effort. 2-Iiggdbezi-nysjzr does ALL the effort. Patient does none of the effort to complete the activity. Or, the assistance of 2 or more helpers is required for the patient to complete the activity. If activity was not attempted, code reason: 7-Patient Refused. 9-Not Applicable-not attempted and the patient did not perform the activity before the current illness, exacerbation or injury. 10-Not Attempted due to Environmental Limitations-(lack of equipment, weather restraints, etc.). 88-Not Attempted due to Medical Conditions or Safety Concerns. Sit to Stand (QC): 6 Chair/Tpe-ea-Ntoel Xfer(QC): 6 Weight Bearing 10# lifting restriction and no squatting Gait Training Gait Assistive Device: FWW Ambulate 200ft with FWW and supervision, Ambulate 600ft FWW and supervision all with supplemental oxygen at 2 L/min Exercises Standin way Ex=Flex, Abd, Ext Standing Reps: 10 NuStep Minutes: 10 Assessment Progressing with gait stability and endurance. She will benefit from continued PT to address balance and mobility. PT Short Term Goals Short Term Goals Time Frame: Jun 04, 2021 Roll Left & Right: 6 Sit to lyin Lying to sitting on side of be: 6 Sit to stand: 4 (SBA) Chair/kts-op-ixdxy transfer: 4 (SBA) Walk 10 feet: 4 (SBA) Walk 50 feet with two turns: 4 (SBA) Walk 150 feet: 4 (SBA) 1 step (curb): 4 (SBA) 4 steps: 4 (SBA) PT Senior Care Goals Senior Care Goals PT Senior Care Goals Time Frame: Jun 18, 2021 Roll Left & Right (QC): 6 Sit to Lying (QC): 6 Lying-Sitting on Side/Bed(QC): 6 Sit to Stand (QC): 6 Chair/Aqa-mh-Yxlqr Xfer(QC): 6 Toilet Transfer (QC): 6 Car Transfer (QC): 6 Does the Patient Walk: Yes Walk 10 feet (QC): 6 Walk 50ft with 2 Turns (QC): 6 Walk 150 ft (QC): 6 Walking 10ft on Uneven Surface: 6 1 Step (curb) (QC): 4 (SBA) 4 Steps (QC): 4 (SBA) 12 Steps (QC): 4 (SBA) Picking up an Object (QC): 6 Wheel 50 feet with 2 turns (QC: 9 Wheel 150 feet: 9 PT Plan Treatment/Plan Treatment Plan: Continue Plan of Care Treatment Plan: Bed Mobility, Education, Functional Activity Samy, Functional Strength, Group Therapy, Gait, Safety, Therapeutic Exercise, Transfers Treatment Duration: Jun 18, 2021 Frequency: At least 5 of 7 days/Wk (IRF) Estimated Hrs Per Day: 1.5 hours per day Patient and/or Family Agrees t: Yes Time/GCodes Time In: 1230 Time Out: 1300 Total Billed Treatment Time: 30 Total Billed Treatment visit, gait 15 min, ex 15 min BASIA LIMA PT Jun 04, 2021 15:08
[2021-06-04] MEDS: DOCUSATE SODIUM 100 MG (COLACE) CAP PO SCH (19:24)
[2021-06-04] MEDS: LACTOBACILLUS ACIDOPHILUS (PROBIOTIC) CAPSULE PO SCH (20:21)
[2021-06-04] MEDS: AtorvaSTATin TABLET 10 MG TABLET PO SCH (20:22)
[2021-06-04] MEDS: GABAPENTIN 100 MG (NEURONTIN) CAP PO SCH (20:22)
[2021-06-04] MEDS: ASPIRIN E.C. 81 MG (ECOTRIN) TAB PO SCH (20:22)
[2021-06-04 20:48] VITALS: BP 162/72
[2021-06-05] MEDS: CYANOCOBALAMIN 1,000 MCG (VITAMIN B-12) TABLET PO SCH (06:40)
[2021-06-05] MEDS: CATHETER FLUSH 10 ML SYR IV SCH ×3 (06:40→20:22)
[2021-06-05] MEDS: LEVOTHYROXINE 88 MCG (LEVOTHORID) TAB PO SCH (06:40)
[2021-06-05] MEDS: KCL 8 MEQ (MICRO K) TABLET PO SCH (06:42)
[2021-06-05 07:41] VITALS: BP 175/74
[2021-06-05] MEDS: doxAzosin 1 MG (CARDURA) TAB PO SCH ×2 (08:42→20:19)
[2021-06-05] MEDS: guaiFENesin (MUCINEX) 600 MG TAB PO SCH ×2 (08:42→20:19)
[2021-06-05] MEDS: CEFDINIR 300 MG (OMNICEF) CAP PO SCH (08:42)
[2021-06-05] MEDS: LORATADINE (CLARITIN) 10 MG TAB PO SCH (08:43)
[2021-06-05] MEDS: FUROSEMIDE 40 MG (LASIX) TAB PO SCH (08:43)
[2021-06-05] MEDS: ARTIFICAL TEARS 0.4 ML UNIT DOSE (REFRESH PLUS) OU SCH ×3 (08:43→20:21)
[2021-06-05] MEDS: BENZONATATE 100 MG (TESSALON) CAPSULE PO SCH ×3 (08:43→20:21)
[2021-06-05] MEDS: VITAMIN D3 25 MCG (1,000 UNITS) TABLET PO SCH ×2 (08:43→20:21)
[2021-06-05] MEDS: APIXABAN 5 MG (ELIQUIS) TABLET PO SCH ×2 (08:43→20:21)
[2021-06-05] MEDS: methylPREDNISolone 40 MG/ML (Solu-MEDROL) VIAL IV SCH ×2 (08:43→20:21)
[2021-06-05] MEDS: polyethylene glycoL POWDER 17 GM (MIRALAX) PACK PO SCH ×2 (08:55→19:54)
[2021-06-05] MEDS: SENNA W/DOCUSATE (SENOKOT S) TABLET PO SCH ×2 (08:55→19:54)
--- NOTE | 2021-06-05 10:21 | PM&R Progress Note ---
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 causes the Robitussin to burn Discharge planned for but she is very hesitant and does not feel like she is ready to go Home O2 evaluation will be initiated 06/03/2021: Pt doing a lot better Coughing a bit Not sleeping too well due to steroids Bowels moved after MiraLax Coarse breath sounds on the lung but much improved 06/02/2021: Pt working with PT Covid and flu swabs negative Cefdinir maintained Steroids will be initiated after midline placed We will add cough suppressant 06/01/2021: Patient doing better today Bronchitis treatment tolerated We will give 1 dose of Solu-Medrol in 80mg IM since she does not have IV access Cough is improved 05/31/2021: Patient doing a lot better today Very frail status Cough is productive now Bacterial bronchitis will be initiating antibiotic 05/30/2021: Patient short of breath Oxygen maintained Fully Covid vaccinated with booster including flu Checked labs completed septic work-up and chest x-ray all were negative 05/29/2021: Pt doing okay Had some nausea, received Zofran Biofreeze will be from her home supply Cough is noted but lungs are clear Cardiology will be consulted Review of Systems General: Fatigue, Malaise Pulmonary: Dyspnea Objective Exam Vital Signs Vital Signs Date Time Temp Pulse Resp B/P (MAP) Pulse Ox O2 Delivery O2 Flow Rate FiO2 06/05/21 21:06 95 Nasal Cannula 2.00 06/05/21 19:52 37.0 85 16 142/63 (89) Capillary Refill : General Appearance: No Apparent Distress, WD/WN, Anxious, Chronically ill HEENT: PERRL/EOMI, Normal ENT Inspection, Pharynx Normal Neck: Full Range of Motion, Normal Inspection, Non Tender, Supple, Carotid Bruit Respiratory: Chest Non Tender, Lungs Clear, Normal Breath Sounds, No Accessory Muscle Use, No Respiratory Distress Cardiovascular: Regular Rate, Rhythm, No Edema, No Gallop, No JVD, No Murmur, Normal Peripheral Pulses Gastrointestinal: Normal Bowel Sounds, No Organomegaly, No Pulsatile Mass, Non Tender, Soft Rectal: Deferred Back: Normal Inspection, No CVA Tenderness, No Vertebral Tenderness Extremity: Normal Capillary Refill, Normal Inspection, Normal Range of Motion, Non Tender, No Calf Tenderness, No Pedal Edema Neurologic/Psychiatric: Alert, Oriented x3, No Motor/Sensory Deficits, Normal Mood/Affect Skin: Normal Color, Warm/Dry, Other (Right carotid endarterectomy incision line) Lymphatic: No Adenopathy Results/Procedures Lab Patient resulted labs reviewed. FIM Transfers Therapy Code Descriptions/Definitions Functional [place] Measure: 0=Not Assessed/NA 4=Minimal Assistance 1=Total Assistance 5=Supervision or Setup 2=Maximal Assistance 6=Modified [place] 3=Moderate Assistance 7=Complete IndependenceSCALE: Activities may be completed with or without assistive devices. 4-Kavpfepgdc-lzuzhop completes the activity by him/herself with no assistance from a helper. 5-Set-up or Clean-up Assistance-helper sets up or cleans up; patient completes activity. [place] assists only prior to or following the activity. 4-Supervision or Touching Assistance-helper provides verbal cues and/or touching/steadying and/or contact guard assistance as patient completes activity. Assistance may be provided throughout the activity or intermittently. 3-Partial/Moderate Assistance-helper does LESS THAN HALF the effort. [place] lifts, holds or supports trunk or limbs, but provides less than half the effort. 2-Substantial/Maximal Assistance-helper does MORE THAN HALF the effort. [place] lifts or holds trunk or limbs and provides more than half the effort. 2-Flczxwcfk-igmjly does ALL the effort. Patient does none of the effort to complete the activity. Or, the assistance of 2 or more helpers is required for the patient to complete the activity. If activity was not attempted, code reason: 7-Patient Refused. 9-Not Applicable-not attempted and the patient did not perform the activity before the current illness, exacerbation or injury. 10-Not Attempted due to Environmental Limitations-(lack of equipment, weather restraints, etc.). 88-Not Attempted due to Medical Conditions or Safety Concerns. Roll Left to Right (QC): 6 Sit to Lying (QC): 6 Sit to Stand (QC): 6 Chair/Oat-ak-Usyjz Xfer(QC): 6 Car Transfer (QC): 6 Gait Training Does the Patient Walk?: Yes Walk 10 feet (QC): 5 Walk 50 ft with 2 Turns(QC): 5 Walk 150 ft (QC): 5 Walking 10ft/uneven surface-QC: 4 Gait Persons Needed: 1 (for o2 only) Gait Assistive Device: FWW Wheelchair Training Wheel 50 ft with 2 turns (QC): 9 Wheel 150 ft (QC): 9 Stair Training Stair Training: Handrails/: 1 handrail #of Steps: 4 1 Step (curb) (QC): 4 4 Steps (QC): 4 12 Steps (QC): 88 Stairs: Pattern: Reciprocal Balance Picking up an Object (QC): 5 ADL-Treatment Eating (QC): 6 Oral Hygiene (QC): 6 Bathing Location: L Arm, R Arm, L Upper Leg, R Upper Leg, L Lower Leg (including foot), R Lower Leg (including foot), Chest, Abdomen, Buttocks, Perineal Area Shower/Bathe Self (QC): 5 (Set up before. Clean up after.) Upper Body Dressing (QC): 6 Lower Body Dressing (QC): 6 On/Off Footwear (QC): 6 Toileting Hygiene (QC): 6 (Per clincial judgment.) Toilet Transfer (QC): 4 (SBA on/off toilet.) Assessment/Plan Assessment and Plan Assess & Plan/Chief Complaint Assessment: Debility with weakness Right carotid endarterectomy AF w/RVR s/p cardioversion CHF diastolic type BCC hx Hypoxia uses oxygen at night chronically now she is on continuous Fall risk Impulsive and high risk for falls Acute bacterial bronchitis initiate antibiotic on 05/31/2021 Acute exacerbation of COPD placed on steroids on 06/01/2021 Plan: Home meds Cardiology consult Inpatient rehab protocol 05/29/2021: Nausea treatment Rehab protocol 05/30/2021: Oxygen supplementation Septic work-up 05/31/2021: Antibiotic for bacterial bronchitis 06/01/2021: Supportive care Diuresis Bronchitis treatment 06/02/2021: Supportive care IV steroids 06/03/2021: IV steroids Antibiotic 06/04/2021: Patient resistant of discharge tomorrow Wean O2 06/05/2021: Moved to independent room Try to build confidence Oxygen wean (1) Chronic heart failure with preserved ejection fraction (HFpEF) Assessment & Plan: Her peripheral edema is chronic and persists here in the hospital. I would just recommend that she continue to use compression stockings and take low-dose oral diuretic. (2) Paroxysmal atrial fibrillation Assessment & Plan: She has been maintaining sinus rhythm as an outpatient on no antiarrhythmic drug. We will continue diltiazem for rate control in the event she has recurrent atrial fibrillation and apixaban for stroke prophylaxis. (3) Primary hypertension Assessment & Plan: Blood pressures had improved since admission but then became elevated. I previously increase the dose of diltiazem from 240 mg to 300 mg daily. Her blood pressures are still intermittently elevated. If this persists, we may need to make additional adjustments to her antihypertensive medication. (4) Mixed hyperlipidemia Assessment & Plan: Continue statin medication. (5) Atherosclerosis of both carotid arteries Assessment & Plan: She is now status post right carotid endarterectomy. The site is healing well. She is on aspirin and statin medication. We may want to discontinue the aspirin in 1 month since she takes apixaban for the atrial fibrillation. This will help reduce the risk of hemorrhagic side effects in an octogenarian. (6) Mitral regurgitation Assessment & Plan: Her most recent echocardiogram from August 2020 only shows mild mitral regurgitation. (7) Pulmonary hypertension Assessment & Plan: This is been mild in the past and is probably related to her advanced age and chronic heart failure. ELVA BEAUCHAMP DO Jun 05, 2021 10:21
[2021-06-05] MEDS: RT-ALBUTEROL/IPRATROPIUM 3 ML (DUONEB) VIAL INH SCH ×3 (10:48→21:06)
--- NOTE | 2021-06-05 11:20 | Physical Therapy Daily Note ---
PT Daily Note-Current Subjective Patient in recliner pre tx, agrees to PT, has no complaints of pain. Appearance Patient in recliner post tx with nurse call, phone, tray, all needs met. Mental Status Patient Orientation: Person, Place, Situation Attachments: Oxygen Transfers SCALE: Activities may be completed with or without assistive devices. 2-Uirikhrtic-txumuga completes the activity by him/herself with no assistance from a helper. 5-Set-up or Clean-up Assistance-helper sets up or cleans up; patient completes activity. [place] assists only prior to or following the activity. 4-Supervision or Touching Assistance-helper provides verbal cues and/or touching/steadying and/or contact guard assistance as patient completes activity. Assistance may be provided throughout the activity or intermittently. 3-Partial/Moderate Assistance-helper does LESS THAN HALF the effort. [place] lifts, holds or supports trunk or limbs, but provides less than half the effort. 2-Substantial/Maximal Assistance-helper does MORE THAN HALF the effort. [place] lifts or holds trunk or limbs and provides more than half the effort. 4-Xmjkrlphe-uwmucs does ALL the effort. Patient does none of the effort to complete the activity. Or, the assistance of 2 or more helpers is required for the patient to complete the activity. If activity was not attempted, code reason: 7-Patient Refused. 9-Not Applicable-not attempted and the patient did not perform the activity before the current illness, exacerbation or injury. 10-Not Attempted due to Environmental Limitations-(lack of equipment, weather restraints, etc.). 88-Not Attempted due to Medical Conditions or Safety Concerns. Roll Left & Right (QC): 6 Sit to Lying (QC): 6 Lying to Sitting/Side of Bed(Q: 6 Sit to Stand (QC): 6 Chair/Umr-xa-Bdhxf Xfer(QC): 5 Toilet Transfer (QC): 5 Car Transfer (QC): 5 Weight Bearing 10# lifting restriction and no squatting Gait Training Distance: 400', 120' Walk 10 feet (QC): 5 Walk 50 ft with 2 Turns(QC): 5 Walk 150 ft (QC): 5 Walking 10ft/uneven surface-QC: 5 Gait Assistive Device: FWW Wheelchair Training Wheel 50 ft with 2 turns (QC): 9 Wheel 150 ft (QC): 9 Stair Training Stair Training: Handrails/: 1 handrail #of Steps: 12 1 Step (curb) (QC): 4 4 Steps (QC): 4 12 Steps (QC): 4 Stairs: Pattern: Reciprocal Balance Picking up an Object (QC): 5 Exercises NuStep Minutes: 15 NuStep Workload: 4 Assessment Current Status: Fair Progress Patient needs frequent rest breaks due to fatigue and SOB. She would be independent with all mobility but she often loses track of her O2 line. PT Short Term Goals Short Term Goals Time Frame: Jun 04, 2021 Roll Left & Right: 6 Sit to lyin Lying to sitting on side of be: 6 Sit to stand: 4 (SBA) Chair/vlf-nu-yrzgr transfer: 4 (SBA) Walk 10 feet: 4 (SBA) Walk 50 feet with two turns: 4 (SBA) Walk 150 feet: 4 (SBA) 1 step (curb): 4 (SBA) 4 steps: 4 (SBA) PT Prisoner Classification Interviewer Goals Prisoner Classification Interviewer Goals PT Prisoner Classification Interviewer Goals Time Frame: Jun 18, 2021 Roll Left & Right (QC): 6 Sit to Lying (QC): 6 Lying-Sitting on Side/Bed(QC): 6 Sit to Stand (QC): 6 Chair/Tsl-wl-Nvoyv Xfer(QC): 6 Toilet Transfer (QC): 6 Car Transfer (QC): 6 Does the Patient Walk: Yes Walk 10 feet (QC): 6 Walk 50ft with 2 Turns (QC): 6 Walk 150 ft (QC): 6 Walking 10ft on Uneven Surface: 6 1 Step (curb) (QC): 4 (SBA) 4 Steps (QC): 4 (SBA) 12 Steps (QC): 4 (SBA) Picking up an Object (QC): 6 Wheel 50 feet with 2 turns (QC: 9 Wheel 150 feet: 9 PT Plan Problem List Problem List: Activity Tolerance, Functional Strength, Safety, Balance, Gait, Transfer, Bed Mobility, ROM Treatment/Plan Treatment Plan: Continue Plan of Care Treatment Plan: Bed Mobility, Education, Functional Activity Samy, Functional Strength, Group Therapy, Gait, Safety, Therapeutic Exercise, Transfers Treatment Duration: Jun 18, 2021 Frequency: At least 5 of 7 days/Wk (IRF) Estimated Hrs Per Day: 1.5 hours per day Patient and/or Family Agrees t: Yes Safety Risks/Education Patient Education: Gait Training, Transfer Techniques, Steps, Correct Positioning, Safety Issues Teaching Recipient: Patient Teaching Methods: Demonstration, Discussion Response to Teaching: Reinforcement Needed Time/GCodes Time In: 1000 Time Out: 1100 Total Billed Treatment Time: 60 Total Billed Treatment 1 visit EX 15' FA 45' BALA VINES PT Jun 05, 2021 11:20
--- NOTE | 2021-06-05 12:01 | Occupational Ther Daily Note ---
OT Current Status-Daily Note Subjective Pt in recliner. Pt agreeable to OT tx. Pt states she still isn't comfortable going home yet because she doesn't think she can take care of herself independently. OT provided encouragement to pt and educated her on how well she was doing with OT. Mental Status/Objective Patient Orientation: Person, Place, Time, Situation Attachments: Oxygen ADL-Treatment Therapy Code Descriptions/Definitions Functional [place] Measure: 0=Not Assessed/NA 4=Minimal Assistance 1=Total Assistance 5=Supervision or Setup 2=Maximal Assistance 6=Modified [place] 3=Moderate Assistance 7=Complete IndependenceSCALE: Activities may be completed with or without assistive devices. 7-Asowpdbpoc-nsycddn completes the activity by him/herself with no assistance from a helper. 5-Set-up or Clean-up Assistance-helper sets up or cleans up; patient completes activity. [place] assists only prior to or following the activity. 4-Supervision or Touching Assistance-helper provides verbal cues and/or touching/steadying and/or contact guard assistance as patient completes activity. Assistance may be provided throughout the activity or intermittently. 3-Partial/Moderate Assistance-helper does LESS THAN HALF the effort. [place] lifts, holds or supports trunk or limbs, but provides less than half the effort. 2-Substantial/Maximal Assistance-helper does MORE THAN HALF the effort. [place] lifts or holds trunk or limbs and provides more than half the effort. 7-Djioojnzi-nxvaua does ALL the effort. Patient does none of the effort to complete the activity. Or, the assistance of 2 or more helpers is required for the patient to complete the activity. If activity was not attempted, code reason: 7-Patient Refused. 9-Not Applicable-not attempted and the patient did not perform the activity before the current illness, exacerbation or injury. 10-Not Attempted due to Environmental Limitations-(lack of equipment, weather restraints, etc.). 88-Not Attempted due to Medical Conditions or Safety Concerns. Other Treatment Pt in recliner. Pt transitioned to therapy gym with CHERRIE HOOPER. Pt completed arm bike, 10 flores, 20 mins, 2 rest breaks. Pt transitioned to new room, CHERRIE HOOPER. Pt organized some of her belongings in room, she needed mod rest breaks between task in room, CHERRIE HOOPER. Pt answered a phone call and needed assistance to hang up the phone. During room management task, pt able to manage O2 tubing without cues. Pt transitioned to recliner, oxygen on, call light in reach, all needs met. Education OT Patient Education: Correct positioning, Energy conservation, Modified ADL techniques, Progress toward Goal/Update tx plan, Purpose of tx/functional activities, Rehab process Teaching Recipient: Patient Teaching Methods: Discussion Response to Teaching: Verbalize Understanding, Reinforcement Needed OT Short Term Goals Short Term Goals Time Frame: Jun 04, 2021 Shower/bathe self: 5 Lower body dressin Putting on/taking off footwear: 5 OT Penitentiary Goals Penitentiary Goals Time Frame: Jun 20, 2021 Eating (QC): 6 Oral Hygiene (QC): 6 Toileting Hygiene (QC): 6 Shower/Bathe Self (QC): 6 Upper Body Dressing (QC): 6 Lower Body Dressing (QC): 6 On/Off Footwear (QC): 6 Additional Goals: 1-Demonstrate ADL Tasks, 2-Verbalize Understanding, 3- ImproveStrength/Samy 1=Demonstrate adherence to instructed precautions during ADL tasks. 2=Patient will verbalize/demonstrate understanding of assistive d evices/modifications for ADL. 3=Patient will improve strength/tolerance for activity to enable patient to perform ADL's. OT Education/Plan Problem List/Assessment Assessment: Decreased Activ Tolerance, Decreased UE Strength, Impaired Funct Balance Discharge Recommendations Plan/Recommendations: Continue POC Treatment Plan/Plan of Care Patient would benefit from OT for education, treatment and training to promote independence in ADL's, mobility, safety and/or upper extremity function for ADL's. Plan of Care: ADL Retraining, Functional Mobility, Group Exercise/Act as Ind, UE Funct Exercise/Act Treatment Duration: Jun 20, 2021 Frequency: At least 5 of 7 days/Wk (IRF) Estimated Hrs Per Day: 1.5 hours per day Agreement: Yes Rehab Potential: Fair Time/GCodes Start Time: 11:00 Stop Time: 12:00 Total Time Billed (hr/min): 60 Billed Treatment Time 1, Ex (20), FA 3 (40) BERTRAM SCHULTZ OT Jun 05, 2021 12:01
[2021-06-05] MEDS: HYDROcodone/APAP 5 MG/325 MG (LORTAB) TAB PO PRN (13:11)
--- NOTE | 2021-06-05 13:28 | Physical Therapy Daily Note ---
PT Daily Note-Current Subjective Patient in recliner pre tx, agrees to PT, has no complaints of pain. Appearance Patient in recliner post tx with nurse call, phone, tray, all needs met. Mental Status Patient Orientation: Person, Place, Situation Attachments: Oxygen Transfers SCALE: Activities may be completed with or without assistive devices. 1-Esoshbcflv-mhwfwxk completes the activity by him/herself with no assistance from a helper. 5-Set-up or Clean-up Assistance-helper sets up or cleans up; patient completes activity. [place] assists only prior to or following the activity. 4-Supervision or Touching Assistance-helper provides verbal cues and/or touching/steadying and/or contact guard assistance as patient completes activity. Assistance may be provided throughout the activity or intermittently. 3-Partial/Moderate Assistance-helper does LESS THAN HALF the effort. [place] lifts, holds or supports trunk or limbs, but provides less than half the effort. 2-Substantial/Maximal Assistance-helper does MORE THAN HALF the effort. [place] lifts or holds trunk or limbs and provides more than half the effort. 9-Lzbzswmlg-wbwenj does ALL the effort. Patient does none of the effort to complete the activity. Or, the assistance of 2 or more helpers is required for the patient to complete the activity. If activity was not attempted, code reason: 7-Patient Refused. 9-Not Applicable-not attempted and the patient did not perform the activity before the current illness, exacerbation or injury. 10-Not Attempted due to Environmental Limitations-(lack of equipment, weather restraints, etc.). 88-Not Attempted due to Medical Conditions or Safety Concerns. Sit to Stand (QC): 6 Chair/Yrz-mh-Ifbiy Xfer(QC): 5 Weight Bearing 10# lifting restriction and no squatting Gait Training Distance: 400'x2 Walk 10 feet (QC): 5 Walk 50 ft with 2 Turns(QC): 5 Walk 150 ft (QC): 5 Gait Assistive Device: FWW slow but steady ambulation Treatments transfers, ambulation Assessment Current Status: Fair Progress improving endurance but needs a significant rest break after ambulation, needs help keeping track of her O2 line PT Short Term Goals Short Term Goals Time Frame: Jun 04, 2021 Roll Left & Right: 6 Sit to lyin Lying to sitting on side of be: 6 Sit to stand: 4 (SBA) Chair/kmn-ha-ooukx transfer: 4 (SBA) Walk 10 feet: 4 (SBA) Walk 50 feet with two turns: 4 (SBA) Walk 150 feet: 4 (SBA) 1 step (curb): 4 (SBA) 4 steps: 4 (SBA) PT Installation Engineer Goals Halfway Goals PT Installation Engineer Goals Time Frame: Jun 18, 2021 Roll Left & Right (QC): 6 Sit to Lying (QC): 6 Lying-Sitting on Side/Bed(QC): 6 Sit to Stand (QC): 6 Chair/Xqj-wc-Wuiqq Xfer(QC): 6 Toilet Transfer (QC): 6 Car Transfer (QC): 6 Does the Patient Walk: Yes Walk 10 feet (QC): 6 Walk 50ft with 2 Turns (QC): 6 Walk 150 ft (QC): 6 Walking 10ft on Uneven Surface: 6 1 Step (curb) (QC): 4 (SBA) 4 Steps (QC): 4 (SBA) 12 Steps (QC): 4 (SBA) Picking up an Object (QC): 6 Wheel 50 feet with 2 turns (QC: 9 Wheel 150 feet: 9 PT Plan Problem List Problem List: Activity Tolerance, Functional Strength, Safety, Balance, Gait, Transfer Treatment/Plan Treatment Plan: Continue Plan of Care Treatment Plan: Bed Mobility, Education, Functional Activity Samy, Functional Strength, Group Therapy, Gait, Safety, Therapeutic Exercise, Transfers Treatment Duration: Jun 18, 2021 Frequency: At least 5 of 7 days/Wk (IRF) Estimated Hrs Per Day: 1.5 hours per day Patient and/or Family Agrees t: Yes Safety Risks/Education Patient Education: Gait Training, Transfer Techniques, Correct Positioning, Safety Issues Teaching Recipient: Patient Teaching Methods: Demonstration, Discussion Response to Teaching: Reinforcement Needed Time/GCodes Time In: 1300 Time Out: 1330 Total Billed Treatment Time: 30 Total Billed Treatment 1 visit GT 30' BALA VINES PT Jun 05, 2021 13:28
--- NOTE | 2021-06-05 14:15 | Occupational Ther Daily Note ---
OT Current Status-Daily Note Subjective Pt in recliner. Pt agreeable to OT tx. Mental Status/Objective Patient Orientation: Person, Place, Time, Situation Attachments: Oxygen ADL-Treatment Therapy Code Descriptions/Definitions Functional [place] Measure: 0=Not Assessed/NA 4=Minimal Assistance 1=Total Assistance 5=Supervision or Setup 2=Maximal Assistance 6=Modified [place] 3=Moderate Assistance 7=Complete IndependenceSCALE: Activities may be completed with or without assistive devices. 8-Tqdgnyunml-utleoan completes the activity by him/herself with no assistance from a helper. 5-Set-up or Clean-up Assistance-helper sets up or cleans up; patient completes activity. [place] assists only prior to or following the activity. 4-Supervision or Touching Assistance-helper provides verbal cues and/or touchi ng/steadying and/or contact guard assistance as patient completes activity. Assistance may be provided throughout the activity or intermittently. 3-Partial/Moderate Assistance-helper does LESS THAN HALF the effort. [place] lifts, holds or supports trunk or limbs, but provides less than half the effort. 2-Substantial/Maximal Assistance-helper does MORE THAN HALF the effort. [place] lifts or holds trunk or limbs and provides more than half the effort. 9-Xfplzfcix-szspim does ALL the effort. Patient does none of the effort to complete the activity. Or, the assistance of 2 or more helpers is required for the patient to complete the activity. If activity was not attempted, code reason: 7-Patient Refused. 9-Not Applicable-not attempted and the patient did not perform the activity before the current illness, exacerbation or injury. 10-Not Attempted due to Environmental Limitations-(lack of equipment, weather restraints, etc.). 88-Not Attempted due to Medical Conditions or Safety Concerns. Toileting Hygiene (QC): 6 Other Treatment Pt in recliner. Pt completed 10 reps BUE with the heavy theraband of the following: shoulder external rotation, shoulder abduction, shoulder horizontal abduction, elbow flexion, elbow extension. Pt completed 10 reps AROM BUE of the following: front punches, wrist flexion/extension and finger flexion/extension. Pt transitioned with FWW, SBA to put a few personal items away in her cabinet. Pt transitioned to bathroom, FWW, SBA, completed toileting and transitioned back to recliner. Pt needed min verbal cues for what direction to turn while holding onto her oxygen tubing. Education provided on gathering the oxygen tubing while heading back towards her chair, and releasing the tubing as she goes on her way away from recliner, she verbalized understanding. Pt in recliner, call light in reach, all needs met. Education OT Patient Education: Correct positioning, Energy conservation, Exercise program, Home exercise program, Progress toward Goal/Update tx plan, Purpose of tx/functional activities, Rehab process Teaching Recipient: Patient Teaching Methods: Demonstration, Discussion Response to Teaching: Verbalize Understanding, Return Demonstration OT Short Term Goals Short Term Goals Time Frame: Jun 04, 2021 Shower/bathe self: 5 Lower body dressin Putting on/taking off footwear: 5 OT [employer] L[employer] Goals [employer] L[employer]arian Goals Time Frame: Jun 20, 2021 Eating (QC): 6 Oral Hygiene (QC): 6 Toileting Hygiene (QC): 6 Shower/Bathe Self (QC): 6 Upper Body Dressing (QC): 6 Lower Body Dressing (QC): 6 On/Off Footwear (QC): 6 Additional Goals: 1-Demonstrate ADL Tasks, 2-Verbalize Understanding, 3- ImproveStrength/Samy 1=Demonstrate adherence to instructed precautions during ADL tasks. 2=Patient will verbalize/demonstrate understanding of assistive devices/modifications for ADL. 3=Patient will improve strength/tolerance for activity to enable patient to perform ADL's. OT Education/Plan Problem List/Assessment Assessment: Decreased Activ Tolerance, Decreased UE Strength Discharge Recommendations Plan/Recommendations: Continue POC Treatment Plan/Plan of Care Patient would benefit from OT for education, treatment and training to promote independence in ADL's, mobility, safety and/or upper extremity function for ADL's. Plan of Care: ADL Retraining, Functional Mobility, Group Exercise/Act as Ind, UE Funct Exercise/Act Treatment Duration: Jun 20, 2021 Frequency: At least 5 of 7 days/Wk (IRF) Estimated Hrs Per Day: 1.5 hours per day Agreement: Yes Rehab Potential: Fair Time/GCodes Start Time: 13:30 Stop Time: 14:05 Total Time Billed (hr/min): 35 Billed Treatment Time 1, EX (20), ADL (15) BERTRAM SCHULTZ OT Jun 05, 2021 14:15
[2021-06-05] MEDS ORDERED: LOSARTAN 25 MG (COZAAR) TAB PO ONE (17:00)
--- NOTE | 2021-06-05 17:08 | Cardiology Progress Note ---
Progress Note-Cardiology Events since last exam Date Seen by Provider: Jun 05, 2021 Time Seen by Provider: 17:04 Events since last exam I am following her due to paroxysmal atrial fibrillation and heart failure. She was moved to a transitional room in the inpatient rehabilitation facility today. Her peripheral edema is about the same. She still has a dry cough but denies dyspnea. She denies chest pain, palpitations, or syncope. Certain portions of this document may have been dictated utilizing voice recognition technology. Inherent to this technology, typographical and grammatical errors may exist. As much as I am diligent to identify and correct these mistakes, some errors may remain in the document. Vitals Last set of Vitals Signs Vital Signs 06/05/21 06/05/21 07:41 09:00 Temp 36.8 Pulse 90 Resp 20 B/P (MAP) 175/74 (107) Pulse Ox 92 O2 Delivery Nasal Cannula O2 Flow Rate 2.00 Exam Vital Signs Vital Signs Date Time Temp Pulse Resp B/P (MAP) Pulse Ox O2 Delivery O2 Flow Rate FiO2 06/05/21 09:00 Nasal Cannula 2.00 06/05/21 07:41 36.8 90 20 175/74 (107) 92 Physical Exam General: Alert. No acute distress. Eye: No xanthelasma. HENT: Normocephalic. Neck: Jugular venous pressure does not appear elevated. Respiratory: Lungs are clear to auscultation. Respirations are non-labored. Breath sounds are equal. Symmetrical chest wall expansion. Cardiovascular: Normal rate. Regular rhythm. No murmur. No gallop. 1+ bilateral pretibial edema. Gastrointestinal: Soft. Normal bowel sounds. Skin: Warm. Dry. Neurologic: Alert and oriented to person, place, time. Cranial nerves 3-11 grossly intact. Psychiatric: Cooperative. Appropriate mood & affect. Diagnosis/Problems Diagnosis/Problems (1) Primary hypertension Assessment & Plan: Blood pressures continue to be intermittently elevated. I previously increased the dose of diltiazem from 240 mg to 300 mg daily. I will start her on losartan and obtain a follow-up metabolic panel in the morning. (2) Chronic heart failure with preserved ejection fraction (HFpEF) Assessment & Plan: Her peripheral edema is chronic and persists here in the hospital. I would just recommend that she continue to use compression stockings and take low-dose oral diuretic. She may also be having some pulmonary congestion related to heart failure. I have ordered a follow-up chest x-ray for tomorrow. (3) Paroxysmal atrial fibrillation Assessment & Plan: She has been maintaining sinus rhythm as an outpatient on no antiarrhythmic drug. We will continue diltiazem for rate control in the event she has recurrent atrial fibrillation and apixaban for stroke prophylaxis. (4) Mixed hyperlipidemia Assessment & Plan: Continue statin medication. (5) Atherosclerosis of both carotid arteries Assessment & Plan: She is now status post right carotid endarterectomy. The site is healing well. She is on aspirin and statin medication. We may want to discontinue the aspirin in 1 month since she takes apixaban for the atrial fibrillation. This will help reduce the risk of hemorrhagic side effects in an octogenarian. (6) Mitral regurgitation Assessment & Plan: Her most recent echocardiogram from August 2020 only shows mild mitral regurgitation. (7) Pulmonary hypertension Assessment & Plan: This is been mild in the past and is probably related to her advanced age and chronic heart failure. JAIRON MORRISSEY JR, MD Jun 05, 2021 17:08
--- NOTE | 2021-06-05 18:33 | Progress Note ---
Subjective Date Seen by a Provider: Jun 05, 2021 Time Seen by a Provider: 12:30 Subjective/Events-last exam Fwup right carotid endarterectomy, HTN, atrial fibrillation, edema, sci atica/neuropathy, atelectesis/cough. Still with cough. Objective Exam Vital Signs Date Time Temp Pulse Resp B/P (MAP) Pulse Ox O2 Delivery O2 Flow Rate FiO2 06/05/21 09:00 Nasal Cannula 2.00 06/05/21 07:41 36.8 90 20 175/74 (107) 92 Nasal Cannula 2.00 06/04/21 21:30 Nasal Cannula 2.00 06/04/21 21:12 94 Nasal Cannula 2.00 06/04/21 20:48 36.8 86 18 162/72 (102) 92 Nasal Cannula 2.00 Capillary Refill : General Appearance: No Apparent Distress Neck: Supple Respiratory: Lungs Clear, Decreased Breath Sounds (bases) Cardiovascular: Regular Rate, Rhythm, Systolic Murmur Gastrointestinal: normal bowel sounds, non tender, soft Extremity: Non Tender, No Calf Tenderness, No Pedal Edema Neurologic/Psychiatric: Alert, Oriented x3 Results Lab Microbiology 06/02/21 Gram Stain - Final, Complete 06/02/21 Sputum Culture - Final, Complete Usual upper respiratory arti 06/02/21 Blood Culture - Preliminary, Resulted No growth Assessment/Plan Assessment/Plan Assess & Plan/Chief Complaint 1. S/P right carotid endarterectomy--healing well 2. Hypertension--stable 3. Neuropathy/Sciatica--on gabapentin 4. Bibasilar Atelectesis/Cough--encouraged IS use hourly while awake, steroids started 5. Edema--on lasix daily 6. Hx of Atrial Fibrillation--on eliquis and cardizem 7. Weakness--doing well with PT/OT 8. Hypokalemia--start oral potassium replacement Clinical Quality Measures Admission Status Admission Dx 1. Right Carotid Artery Stenosis--S/P right carotid endarterectomy--wound he aling well 2. History of Atrial Fibrillation with RVR--back on eliquis and cardizem, appears amiodarone has been discontinued on transfer, cardiology consulted 3. Hypertension--on cardizem and doxazosin 4. Post-op Edema--will given lasix and potassium in AM, continue compression hose 5. Bilateral Leg Neuropathy--add low dose gabapentin 6. Hypothyroidism--back on home thyroid dose I will follow along medically GENA GROSSMAN DO Jun 05, 2021 18:33
[2021-06-05 19:52] VITALS: BP 142/63
[2021-06-05] MEDS: DOCUSATE SODIUM 100 MG (COLACE) CAP PO SCH (19:54)
[2021-06-05] MEDS: AtorvaSTATin TABLET 10 MG TABLET PO SCH (20:19)
[2021-06-05] MEDS: LACTOBACILLUS ACIDOPHILUS (PROBIOTIC) CAPSULE PO SCH (20:21)
[2021-06-05] MEDS: GABAPENTIN 100 MG (NEURONTIN) CAP PO SCH (20:21)
[2021-06-05] MEDS: ASPIRIN E.C. 81 MG (ECOTRIN) TAB PO SCH (20:21)
[2021-06-06] MEDS: HYDROcodone/APAP 5 MG/325 MG (LORTAB) TAB PO PRN (04:00)
[2021-06-06 06:07] LABS: POTASSIUM 3.5 MMOL/L (3.6-5.0)
[2021-06-06 06:08] LABS: CALCIUM 8.1 MG/DL (8.5-10.1)
[2021-06-06 06:12] LABS: CREATININE SERUM 0.75 MG/DL (0.60-1.30)
[2021-06-06] MEDS: LEVOTHYROXINE 88 MCG (LEVOTHORID) TAB PO SCH (06:18)
[2021-06-06] MEDS: CYANOCOBALAMIN 1,000 MCG (VITAMIN B-12) TABLET PO SCH (06:18)
[2021-06-06] MEDS: KCL 8 MEQ (MICRO K) TABLET PO SCH ×2 (06:18→17:25)
[2021-06-06] MEDS: CATHETER FLUSH 10 ML SYR IV SCH ×3 (06:19→20:30)
[2021-06-06 07:15] VITALS: BP 143/65
[2021-06-06] MEDS: LOSARTAN 25 MG (COZAAR) TAB PO SCH (09:04)
[2021-06-06] MEDS: doxAzosin 1 MG (CARDURA) TAB PO SCH ×2 (09:04→20:31)
[2021-06-06] MEDS: APIXABAN 5 MG (ELIQUIS) TABLET PO SCH ×2 (09:04→20:29)
[2021-06-06] MEDS: methylPREDNISolone 40 MG/ML (Solu-MEDROL) VIAL IV SCH (09:04)
[2021-06-06] MEDS: SENNA W/DOCUSATE (SENOKOT S) TABLET PO SCH ×2 (09:04→19:33)
[2021-06-06] MEDS: guaiFENesin (MUCINEX) 600 MG TAB PO SCH ×2 (09:04→20:31)
[2021-06-06] MEDS: BENZONATATE 100 MG (TESSALON) CAPSULE PO SCH ×3 (09:04→20:29)
[2021-06-06] MEDS: VITAMIN D3 25 MCG (1,000 UNITS) TABLET PO SCH ×2 (09:04→20:30)
[2021-06-06] MEDS: FUROSEMIDE 40 MG (LASIX) TAB PO SCH (09:05)
[2021-06-06] MEDS: LORATADINE (CLARITIN) 10 MG TAB PO SCH (09:08)
[2021-06-06] MEDS: polyethylene glycoL POWDER 17 GM (MIRALAX) PACK PO SCH ×2 (09:17→19:33)
[2021-06-06] MEDS: ARTIFICAL TEARS 0.4 ML UNIT DOSE (REFRESH PLUS) OU SCH ×3 (09:17→20:30)
[2021-06-06] MEDS: MAGNESIUM OXIDE (MAG-OX)400 MG TAB PO SCH (09:20)
--- NOTE | 2021-06-06 09:30 | Diagnostic Imaging Report ---
INDICATION: Shortness of breath EXAM: PA and lateral chest FINDINGS: There is a loop recorder projecting over the left lower chest. Heart size and pulmonary vascularity are normal. The lungs are clear. There are no effusions or pneumothoraces. IMPRESSION: No acute abnormalities are seen in the chest. Dictated by: Dictated on workstation # [id number]
[2021-06-06] MEDS: RT-ALBUTEROL/IPRATROPIUM 3 ML (DUONEB) VIAL INH SCH ×2 (09:59→21:09)
--- NOTE | 2021-06-06 10:05 | Physical Therapy Daily Note ---
PT Daily Note-Current Subjective Pt agrees to Rx. Expresses that she has been very upset b/c she feels she will asked to DC to home before she is ready. Pt. states she does not feel she can afford home care assistance for cleaning, laundry, shopping etc. This CHARGING MANIPULATOR explained that her gait is stable and her need for O2 is steady and lessening which is good news and that we need to practice use of O2 tubing in her room to promote indep to manage this at home in case this would be needed. Pt hopes she will be off O2 before DC Pain Location: No Pain Reported Mental Status Patient Orientation: Normal For Age Attachments: Oxygen (1L) Transfers SCALE: Activities may be completed with or without assistive devices. 4-Cdlzhhqlig-gmjbeuh completes the activity by him/herself with no assistance from a helper. 5-Set-up or Clean-up Assistance-helper sets up or cleans up; patient completes activity. [place] assists only prior to or following the activity. 4-Supervision or Touching Assistance-helper provides verbal cues and/or touching/steadying and/or contact guard assistance as patient completes activ ity. Assistance may be provided throughout the activity or intermittently. 3-Partial/Moderate Assistance-helper does LESS THAN HALF the effort. [place] lifts, holds or supports trunk or limbs, but provides less than half the effort. 2-Substantial/Maximal Assistance-helper does MORE THAN HALF the effort. [place] lifts or holds trunk or limbs and provides more than half the effort. 3-Iwsoyqmao-ulxmkv does ALL the effort. Patient does none of the effort to complete the activity. Or, the assistance of 2 or more helpers is required for the patient to complete the activity. If activity was not attempted, code reason: 7-Patient Refused. 9-Not Applicable-not attempted and the patient did not perform the activity before the current illness, exacerbation or injury. 10-Not Attempted due to Environmental Limitations-(lack of equipment, weather restraints, etc.). 88-Not Attempted due to Medical Conditions or Safety Concerns. Roll Left & Right (QC): 6 Sit to Lying (QC): 6 Lying to Sitting/Side of Bed(Q: 6 Sit to Stand (QC): 6 Chair/Ukd-de-Ueffq Xfer(QC): 6 Toilet Transfer (QC): 6 Weight Bearing 10# lifting restriction and no squatting Gait Training Does the Patient Walk?: Yes Walk 10 feet (QC): 6 Walk 50 ft with 2 Turns(QC): 6 Walk 150 ft (QC): 6 Gait Persons Needed: 0 Gait Assistive Device: FWW much emphasis on gait with many turns while safely managing O2 tubing . Exercises Seated Therapy Exercises: Ankle pumps, Sit to stand, Long arc quads, Hip flexion Seated Reps: 15 Treatments gait about room and just outside room with pt. managing her O2 with instruction for safety. O2 sats steady > 95% each check on 1L, HR 110 Assessment Current Status: Good Progress pt. has anxiety about returning home. PT Short Term Goals Short Term Goals Time Frame: Jun 04, 2021 Roll Left & Right: 6 Sit to lyin Lying to sitting on side of be: 6 Sit to stand: 4 (SBA) Chair/rsm-yn-viuhz transfer: 4 (SBA) Walk 10 feet: 4 (SBA) Walk 50 feet with two turns: 4 (SBA) Walk 150 feet: 4 (SBA) 1 step (curb): 4 (SBA) 4 steps: 4 (SBA) PT Telemetry Registered Nurse Goals Detention Goals PT Telemetry Registered Nurse Goals Time Frame: Jun 18, 2021 Roll Left & Right (QC): 6 Sit to Lying (QC): 6 Lying-Sitting on Side/Bed(QC): 6 Sit to Stand (QC): 6 Chair/Vrn-df-Xfwoq Xfer(QC): 6 Toilet Transfer (QC): 6 Car Transfer (QC): 6 Does the Patient Walk: Yes Walk 10 feet (QC): 6 Walk 50ft with 2 Turns (QC): 6 Walk 150 ft (QC): 6 Walking 10ft on Uneven Surface: 6 1 Step (curb) (QC): 4 (SBA) 4 Steps (QC): 4 (SBA) 12 Steps (QC): 4 (SBA) Picking up an Object (QC): 6 Wheel 50 feet with 2 turns (QC: 9 Wheel 150 feet: 9 PT Plan Treatment/Plan Treatment Plan: Continue Plan of Care Treatment Plan: Bed Mobility, Education, Functional Activity Samy, Functional Strength, Group Therapy, Gait, Safety, Therapeutic Exercise, Transfers Treatment Duration: Jun 18, 2021 Frequency: At least 5 of 7 days/Wk (IRF) Estimated Hrs Per Day: 1.5 hours per day Patient and/or Family Agrees t: Yes Safety Risks/Education Patient Education: Gait Training, Transfer Techniques, Correct Positioning, Disease Process, Safety Issues Teaching Recipient: Patient Teaching Methods: Demonstration, Discussion Response to Teaching: Verbalize Understanding, Return Demonstration, Reinforcement Needed Time/GCodes Time In: 900 Time Out: 1000 Total Billed Treatment Time: 60 Total Billed Treatment 1,GT35m,FA25m DARION SANTIAGO CHARGING MANIPULATOR Jun 06, 2021 10:05
--- NOTE | 2021-06-06 10:27 | PM&R Progress Note ---
Subjective HPI/CC On Admission Date Seen by Provider: Jun 06, 2021 Time Seen by Provider: 12:30 Subjective/Events-last exam 06/06/2021: Patient feels better Weaning down from continuous oxygen No major issues Lungs are still wheezy but improved Conferred with her PCP Dr. 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 causes the Robitussin to burn Discharge planned for but she is very hesitant and does not feel like she is ready to go Home O2 evaluation will be initiated 06/03/2021: Pt doing a lot better Coughing a bit Not sleeping too well due to steroids Bowels moved after MiraLax Coarse breath sounds on the lung but much improved 06/02/2021: Pt working with PT Covid and flu swabs negative Cefdinir maintained Steroids will be initiated after midline placed We will add cough suppressant 06/01/2021: Patient doing better today Bronchitis treatment tolerated We will give 1 dose of Solu-Medrol in 80mg IM since she does not have IV access Cough is improved 05/31/2021: Patient doing a lot better today Very frail status Cough is productive now Bacterial bronchitis will be initiating antibiotic 05/30/2021: Patient short of breath Oxygen maintained Fully Covid vaccinated with booster including flu Checked labs completed septic work-up and chest x-ray all were negative 05/29/2021: Pt doing okay Had some nausea, received Zofran Biofreeze will be from her home supply Cough is noted but lungs are clear Cardiology will be consulted Review of Systems General: Fatigue, Malaise Pulmonary: Dyspnea, Cough Objective Exam Vital Signs Vital Signs Date Time Temp Pulse Resp B/P (MAP) Pulse Ox O2 Delivery O2 Flow Rate FiO2 06/06/21 09:59 95 Nasal Cannula 2.00 06/06/21 07:15 36.6 81 18 143/65 (91) Capillary Refill : General Appearance: No Apparent Distress, WD/WN, Anxious, Chronically ill HEENT: PERRL/EOMI, Normal ENT Inspection, Pharynx Normal Neck: Full Range of Motion, Normal Inspection, Non Tender, Supple, Carotid Bruit Respiratory: Chest Non Tender, Lungs Clear, Normal Breath Sounds, No Accessory Muscle Use, No Respiratory Distress Cardiovascular: Regular Rate, Rhythm, No Edema, No Gallop, No JVD, No Murmur, Normal Peripheral Pulses Gastrointestinal: Normal Bowel Sounds, No Organomegaly, No Pulsatile Mass, Non Tender, Soft Rectal: Deferred Back: Normal Inspection, No CVA Tenderness, No Vertebral Tenderness Extremity: Normal Capillary Refill, Normal Inspection, Normal Range of Motion, Non Tender, No Calf Tenderness, No Pedal Edema Neurologic/Psychiatric: Alert, Oriented x3, No Motor/Sensory Deficits, Normal Mood/Affect Skin: Normal Color, Warm/Dry, Other (Right carotid endarterectomy incision line) Lymphatic: No Adenopathy Results/Procedures Lab Laboratory Tests 06/06/21 05:45 Patient resulted labs reviewed. FIM Transfers Therapy Code Descriptions/Definitions Functional [place] Measure: 0=Not Assessed/NA 4=Minimal Assistance 1=Total Assistance 5=Supervision or Setup 2=Maximal Assistance 6=Modified [place] 3=Moderate Assistance 7=Complete IndependenceSCALE: Activities may be completed with or without assistive devices. 2-Ylezkwchqn-bbmqxxe completes the activity by him/herself with no assistance from a helper. 5-Set-up or Clean-up Assistance-helper sets up or cleans up; patient completes activity. [place] assists only prior to or following the activity. 4-Supervision or Touching Assistance-helper provides verbal cues and/or touching/steadying and/or contact guard assistance as patient completes activity. Assistance may be provided throughout the activity or intermittently. 3-Partial/Moderate Assistance-helper does LESS THAN HALF the effort. [place] lifts, holds or supports trunk or limbs, but provides less than half the effort. 2-Substantial/Maximal Assistance-helper does MORE THAN HALF the effort. [place] lifts or holds trunk or limbs and provides more than half the effort. 7-Cuwdnwpgk-ptvpre does ALL the effort. Patient does none of the effort to co mplete the activity. Or, the assistance of 2 or more helpers is required for the patient to complete the activity. If activity was not attempted, code reason: 7-Patient Refused. 9-Not Applicable-not attempted and the patient did not perform the activity before the current illness, exacerbation or injury. 10-Not Attempted due to Environmental Limitations-(lack of equipment, weather restraints, etc.). 88-Not Attempted due to Medical Conditions or Safety Concerns. Roll Left to Right (QC): 6 Sit to Lying (QC): 6 Sit to Stand (QC): 6 Chair/Amc-yb-Ezfyj Xfer(QC): 6 Car Transfer (QC): 5 Gait Training Does the Patient Walk?: Yes Distance: 400'x2 Walk 10 feet (QC): 6 Walk 50 ft with 2 Turns(QC): 6 Walk 150 ft (QC): 6 Walking 10ft/uneven surface-QC: 5 Gait Persons Needed: 0 Gait Assistive Device: FWW Wheelchair Training Wheel 50 ft with 2 turns (QC): 9 Wheel 150 ft (QC): 9 Stair Training Stair Training: Handrails/: 1 handrail #of Steps: 12 1 Step (curb) (QC): 4 4 Steps (QC): 4 12 Steps (QC): 4 Stairs: Pattern: Reciprocal Balance Picking up an Object (QC): 5 ADL-Treatment Eating (QC): 6 Oral Hygiene (QC): 6 Bathing Location: L Arm, R Arm, L Upper Leg, R Upper Leg, L Lower Leg (including foot), R Lower Leg (including foot), Chest, Abdomen, Buttocks, Perineal Area Shower/Bathe Self (QC): 5 (Set up before. Clean up after.) Upper Body Dressing (QC): 6 Lower Body Dressing (QC): 6 On/Off Footwear (QC): 6 Toileting Hygiene (QC): 6 Toilet Transfer (QC): 4 (SBA on/off toilet.) Assessment/Plan Assessment and Plan Assess & Plan/Chief Complaint Assessment: Debility with weakness Right carotid endarterectomy AF w/RVR s/p cardioversion CHF diastolic type BCC hx Hypoxia uses oxygen at night chronically now she is on continuous Fall risk Impulsive and high risk for falls Acute bacterial bronchitis initiate antibiotic on 05/31/2021 Acute exacerbation of COPD placed on steroids on 06/01/2021 Plan: Home meds Cardiology consult Inpatient rehab protocol 05/29/2021: Nausea treatment Rehab protocol 05/30/2021: Oxygen supplementation Septic work-up 05/31/2021: Antibiotic for bacterial bronchitis 06/01/2021: Supportive care Diuresis Bronchitis treatment 06/02/2021: Supportive care IV steroids 06/03/2021: IV steroids Antibiotic 06/04/2021: Patient resistant of discharge tomorrow Wean O2 06/05/2021: Moved to independent room Try to build confidence Oxygen wean 06/06/2021: Supportive care Wean oxygen Degree steroids (1) Primary hypertension Assessment & Plan: Blood pressures continue to be intermittently elevated. I previously increased the dose of diltiazem from 240 mg to 300 mg daily. I will start her on losartan and obtain a follow-up metabolic panel in the morning. (2) Chronic heart failure with preserved ejection fraction (HFpEF) Assessment & Plan: Her peripheral edema is chronic and persists here in the hospital. I would just recommend that she continue to use compression stockings and take low-dose oral diuretic. She may also be having some pulmonary congestion related to heart failure. I have ordered a follow-up chest x-ray for tomorrow. (3) Paroxysmal atrial fibrillation Assessment & Plan: She has been maintaining sinus rhythm as an outpatient on no antiarrhythmic drug. We will continue diltiazem for rate control in the event she has recurrent atrial fibrillation and apixaban for stroke prophylaxis. (4) Mixed hyperlipidemia Assessment & Plan: Continue statin medication. (5) Atherosclerosis of both carotid arteries Assessment & Plan: She is now status post right carotid endarterectomy. The site is healing well. She is on aspirin and statin medication. We may want to discontinue the aspirin in 1 month since she takes apixaban for the atrial fibrillation. This will help reduce the risk of hemorrhagic side effects in an octogenarian. (6) Mitral regurgitation Assessment & Plan: Her most recent echocardiogram from August 2020 only shows mild mitral regurgitation. (7) Pulmonary hypertension Assessment & Plan: This is been mild in the past and is probably related to her advanced age and chronic heart failure. ELVA BEAUCHAMP DO Jun 06, 2021 10:27
--- NOTE | 2021-06-06 11:31 | Occupational Ther Daily Note ---
OT Current Status-Daily Note Subjective Pt in recliner. Pt agreeable to OT tx. Mental Status/Objective Patient Orientation: Person, Place, Time, Situation Attachments: Oxygen ADL-Treatment Therapy Code Descriptions/Definitions Functional [place] Measure: 0=Not Assessed/NA 4=Minimal Assistance 1=Total Assistance 5=Supervision or Setup 2=Maximal Assistance 6=Modified [place] 3=Moderate Assistance 7=Complete IndependenceSCALE: Activities may be completed with or without assistive devices. 7-Szudyhsvdu-jklvwkb completes the activity by him/herself with no assistance from a helper. 5-Set-up or Clean-up Assistance-helper sets up or cleans up; patient completes activity. [place] assists only prior to or following the activity. 4-Supervision or Touching Assistance-helper provides verbal cues and/or touchi ng/steadying and/or contact guard assistance as patient completes activity. Assistance may be provided throughout the activity or intermittently. 3-Partial/Moderate Assistance-helper does LESS THAN HALF the effort. [place] lifts, holds or supports trunk or limbs, but provides less than half the effort. 2-Substantial/Maximal Assistance-helper does MORE THAN HALF the effort. [place] lifts or holds trunk or limbs and provides more than half the effort. 8-Yvafwmmhu-pubthr does ALL the effort. Patient does none of the effort to complete the activity. Or, the assistance of 2 or more helpers is required for the patient to complete the activity. If activity was not attempted, code reason: 7-Patient Refused. 9-Not Applicable-not attempted and the patient did not perform the activity before the current illness, exacerbation or injury. 10-Not Attempted due to Environmental Limitations-(lack of equipment, weather restraints, etc.). 88-Not Attempted due to Medical Conditions or Safety Concerns. Bathing Location: L Arm, R Arm, L Upper Leg, R Upper Leg, L Lower Leg (including foot), R Lower Leg (including foot), Chest, Abdomen, Buttocks, Perineal Area Shower/Bathe Self (QC): 5 Upper Body Dressing (QC): 6 Lower Body Dressing (QC): 6 On/Off Footwear: 6 Toileting Hygiene (QC): 6 Toilet Transfer (QC): 6 Other Treatment Pt in recliner. Pt needed assistance to dial the cafeteria phone number. Pt transitioned from recliner to closet, FWW, SBA, grabbed clothing, transitioned to bathroom. Pt completed toileting independently, transitioned to SC, FWW, SBA. Pt doffed shirt, pants and shoes independently, completed showering and donned shirt, pants, socks and shoes independently. Pt transitioned to sink, FWW, SBA to comb hair, transitioned back to recliner to don socks independently. Pt transitioned to the kitchen cabinets, FWW, SBA, found rush bags hidden in the cabinets x2, tossed them in a basket to work on carrying her oxygen tubing while completing a functional activity, min verbal cues for safety with FWW and tubing. Pt transitioned back to recliner in room, call light in reach, all needs met. Education OT Patient Education: Correct positioning, Energy conservation, Modified ADL techniques, Progress toward Goal/Update tx plan, Purpose of tx/functional activities, Rehab process Teaching Recipient: Patient Teaching Methods: Discussion Response to Teaching: Verbalize Understanding, Reinforcement Needed (Pt needed verbal cues to turn walker as she was turning her body to complete a task. ) OT Short Term Goals Short Term Goals Time Frame: Jun 04, 2021 Shower/bathe self: 5 Lower body dressin Putting on/taking off footwear: 5 OT Fdc Goals Fdc Goals Time Frame: Jun 20, 2021 Eating (QC): 6 Oral Hygiene (QC): 6 Toileting Hygiene (QC): 6 Shower/Bathe Self (QC): 6 Upper Body Dressing (QC): 6 Lower Body Dressing (QC): 6 On/Off Footwear (QC): 6 Additional Goals: 1-Demonstrate ADL Tasks, 2-Verbalize Understanding, 3-ImproveStrength/Samy 1=Demonstrate adherence to instructed precautions during ADL tasks. 2=Patient will verbalize/demonstrate understanding of assistive devices/modifications for ADL. 3=Patient will improve strength/tolerance for activity to enable patient to perform ADL's. OT Education/Plan Problem List/Assessment Assessment: Decreased Activ Tolerance, Decreased UE Strength, Impaired Coordination Discharge Recommendations Plan/Recommendations: Continue POC Treatment Plan/Plan of Care Patient would benefit from OT for education, treatment and training to promote independence in ADL's, mobility, safety and/or upper extremity function for ADL's. Plan of Care: ADL Retraining, Functional Mobility, Group Exercise/Act as Ind, UE Funct Exercise/Act Treatment Duration: Jun 20, 2021 Frequency: At least 5 of 7 days/Wk (IRF) Estimated Hrs Per Day: 1.5 hours per day Agreement: Yes Rehab Potential: Fair Time/GCodes Start Time: 10:00 Stop Time: 11:30 Total Time Billed (hr/min): 90 Billed Treatment Time 1, ADL 4 (60). FA 2 (30) BERTRAM SCHULTZ OT Jun 06, 2021 11:31
--- NOTE | 2021-06-06 12:08 | Physical Therapy Daily Note ---
PT Daily Note-Current Subjective Pt. agrees to Rx. Feels she is getting better at being up a nd around with extended O2 tubing . No c/o pain or SOB Pain Location: No Pain Reported Mental Status Patient Orientation: Normal For Age Attachments: Oxygen (1L) Transfers SCALE: Activities may be completed with or without assistive devices. 6-Dnxillnbjs-faylidq completes the activity by him/herself with no assistance from a helper. 5-Set-up or Clean-up Assistance-helper sets up or cleans up; patient completes activity. [place] assists only prior to or following the activity. 4-Supervision or Touching Assistance-helper provides verbal cues and/or touching/steadying and/or contact guard assistance as patient completes a ctivity. Assistance may be provided throughout the activity or intermittently. 3-Partial/Moderate Assistance-helper does LESS THAN HALF the effort. [place] lifts, holds or supports trunk or limbs, but provides less than half the effort. 2-Substantial/Maximal Assistance-helper does MORE THAN HALF the effort. [place] lifts or holds trunk or limbs and provides more than half the effort. 5-Vxlrjdaga-sjweby does ALL the effort. Patient does none of the effort to complete the activity. Or, the assistance of 2 or more helpers is required for the patient to complete the activity. If activity was not attempted, code reason: 7-Patient Refused. 9-Not Applicable-not attempted and the patient did not perform the activity before the current illness, exacerbation or injury. 10-Not Attempted due to Environmental Limitations-(lack of equipment, weather restraints, etc.). 88-Not Attempted due to Medical Conditions or Safety Concerns. all TRFs mod I Weight Bearing 10# lifting restriction and no squatting Gait Training Gait Assistive Device: FWW 175ft x 2 Mod I , assist only for port O2 Exercises NuStep Minutes: 11 NuStep Workload: 3 Treatments pt. talking during all 11 mins of Nustep exercise, no c/o SOA Assessment Current Status: Good Progress hoping pt. feels more confident about gait with extended O2 tubing. O2 sats steady > 95% , no noted issues while observing pts gait with extended O2 tubing PT Short Term Goals Short Term Goals Time Frame: Jun 04, 2021 Roll Left & Right: 6 Sit to lyin Lying to sitting on side of be: 6 Sit to stand: 4 (SBA) Chair/bva-xp-lpyiv transfer: 4 (SBA) Walk 10 feet: 4 (SBA) Walk 50 feet with two turns: 4 (SBA) Walk 150 feet: 4 (SBA) 1 step (curb): 4 (SBA) 4 steps: 4 (SBA) PT Sales Expert Goals Sales Expert Goals PT Sales Expert Goals Time Frame: Jun 18, 2021 Roll Left & Right (QC): 6 Sit to Lying (QC): 6 Lying-Sitting on Side/Bed(QC): 6 Sit to Stand (QC): 6 Chair/Tjq-pl-Gfkfu Xfer(QC): 6 Toilet Transfer (QC): 6 Car Transfer (QC): 6 Does the Patient Walk: Yes Walk 10 feet (QC): 6 Walk 50ft with 2 Turns (QC): 6 Walk 150 ft (QC): 6 Walking 10ft on Uneven Surface: 6 1 Step (curb) (QC): 4 (SBA) 4 Steps (QC): 4 (SBA) 12 Steps (QC): 4 (SBA) Picking up an Object (QC): 6 Wheel 50 feet with 2 turns (QC: 9 Wheel 150 feet: 9 PT Plan Treatment/Plan Treatment Plan: Continue Plan of Care Treatment Plan: Bed Mobility, Education, Functional Activity Samy, Functional Strength, Group Therapy, Gait, Safety, Therapeutic Exercise, Transfers Treatment Duration: Jun 18, 2021 Frequency: At least 5 of 7 days/Wk (IRF) Estimated Hrs Per Day: 1.5 hours per day Patient and/or Family Agrees t: Yes Safety Risks/Education Patient Education: Gait Training, Transfer Techniques, Correct Positioning, Safety Issues Teaching Recipient: Patient Teaching Methods: Demonstration, Discussion Response to Teaching: Verbalize Understanding, Return Demonstration, Reinforcement Needed Time/GCodes Time In: 1130 Time Out: 1200 Total Billed Treatment Time: 30 Total Billed Treatment 1,GT15m,EX15m DARION SANTIAGO ASSISTANT HEALTH EDUCATOR Jun 06, 2021 12:08
--- NOTE | 2021-06-06 12:30 | Progress Note ---
Subjective Date Seen by a Provider: Jun 06, 2021 Time Seen by a Provider: 12:26 Subjective/Events-last exam Fwup right carotid endarterectomy, HTN, atrial fibrillation, edema, sci atica/neuropathy, atelectesis/cough. Down to 1L on oxygen. Still not sleeping well but is from cough. Legs still swelling. Objective Exam Vital Signs Date Time Temp Pulse Resp B/P (MAP) Pulse Ox O2 Delivery O2 Flow Rate FiO2 06/06/21 09:59 95 Nasal Cannula 2.00 06/06/21 09:00 Nasal Cannula 1.00 06/06/21 07:15 36.6 81 18 143/65 (91) 93 Nasal Cannula 2.00 06/05/21 21:06 95 Nasal Cannula 2.00 06/05/21 20:51 Nasal Cannula 1.00 06/05/21 19:52 37.0 85 16 142/63 (89) 92 Capillary Refill : General Appearance: No Apparent Distress Neck: Supple Respiratory: Rhonci (bases but better aeration in bases today) Cardiovascular: Regular Rate, Rhythm, Systolic Murmur Gastrointestinal: normal bowel sounds, non tender, soft Extremity: No Calf Tenderness, Pedal Edema Neurologic/Psychiatric: Alert, Oriented x3 Results Lab Laboratory Tests 06/06/21 05:45: Sodium Level 135, Potassium Level 3.5L, Chloride Level 95L, Carbon Dioxide Level 32, Anion Gap 8, Blood Urea Nitrogen 21H, Creatinine 0.75, Estimat Glomerular Filtration Rate 74, BUN/Creatinine Ratio 28, Glucose Level 142H, Calcium Level 8.1L Microbiology 06/02/21 Gram Stain - Final, Complete 06/02/21 Sputum Culture - Final, Complete Usual upper respiratory arti 06/02/21 Blood Culture - Preliminary, Resulted No growth Assessment/Plan Assessment/Plan Assess & Plan/Chief Complaint 1. S/P right carotid endarterectomy--healing well 2. Hypertension--stable 3. Neuropathy/Sciatica--on gabapentin 4. Bibasilar Atelectesis/Cough--down to 1L NC, CXR negative 5. Edema--on lasix daily 6. Hx of Atrial Fibrillation--on eliquis and cardizem 7. Weakness--doing well with PT/OT 8. Hypokalemia--increase oral potassium replacement Clinical Quality Measures Admission Status Admission Dx 1. Right Carotid Artery Stenosis--S/P right carotid endarterectomy--wound healing well 2. History of Atrial Fibrillation with RVR--back on eliquis and cardizem, appears amiodarone has been discontinued on transfer, cardiology consulted 3. Hypertension--on cardizem and doxazosin 4. Post-op Edema--will given lasix and potassium in AM, continue compression hose 5. Bilateral Leg Neuropathy--add low dose gabapentin 6. Hypothyroidism--back on home thyroid dose I will follow along medically GENA GROSSMAN DO Jun 06, 2021 12:30
--- NOTE | 2021-06-06 15:31 | Cardiology Progress Note ---
Progress Note-Cardiology Events since last exam Date Seen by Provider: Jun 06, 2021 Time Seen by Provider: 15:30 Events since last exam I am following her for heart failure. Her peripheral edema persists. She tries to keep her legs up as much as possible during the day and is wearing compression stockings. She does not recall ever having this amount of edema in the past prior to her recent right carotid endarterectomy. She denies chest pain, dyspnea, palpitations, or syncope. Vitals Last set of Vitals Signs Vital Signs 06/06/21 06/06/21 07:15 09:59 Temp 36.6 Pulse 81 Resp 18 B/P (MAP) 143/65 (91) Pulse Ox 95 O2 Delivery Nasal Cannula O2 Flow Rate 2.00 Labs Labs Laboratory Tests 06/06/21 05:45 Exam Vital Signs Vital Signs Date Time Temp Pulse Resp B/P (MAP) Pulse Ox O2 Delivery O2 Flow Rate FiO2 06/06/21 09:59 95 Nasal Cannula 2.00 06/06/21 07:15 36.6 81 18 143/65 (91) Physical Exam General: Alert. No acute distress. Eye: No xanthelasma. HENT: Normocephalic. Neck: Jugular venous pressure does not appear elevated. Respiratory: Lungs are clear to auscultation. Respirations are non-labored. Breath sounds are equal. Symmetrical chest wall expansion. Cardiovascular: Normal rate. Regular rhythm. No murmur. No gallop. 1+ bilateral pretibial edema. Gastrointestinal: Soft. Normal bowel sounds. Skin: Warm. Dry. Neurologic: Alert and oriented to person, place, time. Cranial nerves 3-11 grossly intact. Psychiatric: Cooperative. Appropriate mood & affect. Labs Laboratory Tests Test 06/06/21 05:45 Range/Units Sodium Level 135 135-145 MMOL/L Potassium Level 3.5 L 3.6-5.0 MMOL/L Chloride Level 95 L 98-107 MMOL/L Carbon Dioxide Level 32 21-32 MMOL/L Anion Gap 8 5-14 MMOL/L Blood Urea Nitrogen 21 H 7-18 MG/DL Creatinine 0.75 0.60-1.30 MG/DL Estimat Glomerular Filtration Rate 74 BUN/Creatinine Ratio 28 Glucose Level 142 H 70-105 MG/DL Calcium Level 8.1 L 8.5-10.1 MG/DL Diagnosis/Problems Diagnosis/Problems (1) Chronic heart failure with preserved ejection fraction (HFpEF) Assessment & Plan: Her peripheral edema is chronic and persists here in the hospital. I would just recommend that she continue to use compression stockings and take low-dose oral diuretic. Her chest x-ray from today was clear. I offered to give her a dose of intravenous Lasix tomorrow but she would like to hold off. (2) Paroxysmal atrial fibrillation Assessment & Plan: She has been maintaining sinus rhythm as an outpatient on no antiarrhythmic drug. We will continue diltiazem for rate control in the event she has recurrent atrial fibrillation and apixaban for stroke prophylaxis. (3) Primary hypertension Assessment & Plan: Blood pressures continue to be intermittently elevated but better. I previously increased the dose of diltiazem from 240 mg to 300 mg daily. I then started her on losartan. (4) Mixed hyperlipidemia Assessment & Plan: Continue statin medication. (5) Atherosclerosis of both carotid arteries Assessment & Plan: She is now status post right carotid endarterectomy. The site is healing well. She is on aspirin and statin medication. We may want to discontinue the aspirin in 1 month since she takes apixaban for the atrial fibrillation. This will help reduce the risk of hemorrhagic side effects in an octogenarian. (6) Mitral regurgitation Assessment & Plan: Her most recent echocardiogram from August 2020 only shows mild mitral regurgitation. (7) Pulmonary hypertension Assessment & Plan: This is been mild in the past and is probably related to her advanced age and chronic heart failure. JAIRON MORRISSEY JR, MD Jun 06, 2021 15:31
[2021-06-06] MEDS: DOCUSATE SODIUM 100 MG (COLACE) CAP PO SCH (19:32)
[2021-06-06 19:48] VITALS: BP 121/56
[2021-06-06] MEDS: LACTOBACILLUS ACIDOPHILUS (PROBIOTIC) CAPSULE PO SCH (20:29)
[2021-06-06] MEDS: GABAPENTIN 100 MG (NEURONTIN) CAP PO SCH (20:29)
[2021-06-06] MEDS: AtorvaSTATin TABLET 10 MG TABLET PO SCH (20:29)
[2021-06-06] MEDS: ASPIRIN E.C. 81 MG (ECOTRIN) TAB PO SCH (20:30)
--- NOTE | 2021-06-07 05:50 | PM&R Progress Note ---
Subjective HPI/CC On Admission Date Seen by Provider: Jun 07, 2021 Time Seen by Provider: 12:15 Subjective/Events-last exam 06/07/2021: Patient feels pretty good Lungs improved Lasix will be given for Dr. Knutson Abdominal hernia after cough was noted we will consult Dr. Carroll 06/06/2021: Patient feels better Weaning down from continuous oxygen No major issues Lungs are still wheezy but improved Conferred with her PCP Dr. 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 causes the Robitussin to burn Discharge planned for but she is very hesitant and does not feel like she is ready to go Home O2 evaluation will be initiated 06/03/2021: Pt doing a lot better Coughing a bit Not sleeping too well due to steroids Bowels moved after MiraLax Coarse breath sounds on the lung but much improved 06/02/2021: Pt working with PT Covid and flu swabs negative Cefdinir maintained Steroids will be initiated after midline placed We will add cough suppressant 06/01/2021: Patient doing better today Bronchitis treatment tolerated We will give 1 dose of Solu-Medrol in 80mg IM since she does not have IV access Cough is improved 05/31/2021: Patient doing a lot better today Very frail status Cough is productive now Bacterial bronchitis will be initiating antibiotic 05/30/2021: Patient short of breath Oxygen maintained Fully Covid vaccinated with booster including flu Checked labs completed septic work-up and chest x-ray all were negative 05/29/2021: Pt doing okay Had some nausea, received Zofran Biofreeze will be from her home supply Cough is noted but lungs are clear Cardiology will be consulted Review of Systems Pulmonary: Dyspnea, Cough Gastrointestinal: Abdominal Pain Objective Exam Vital Signs Vital Signs Date Time Temp Pulse Resp B/P (MAP) Pulse Ox O2 Delivery O2 Flow Rate FiO2 06/07/21 15:46 95 Nasal Cannula 1.00 06/07/21 07:57 36.1 80 20 134/63 (86) Capillary Refill : General Appearance: No Apparent Distress, WD/WN, Anxious, Chronically ill HEENT: PERRL/EOMI, Normal ENT Inspection, Pharynx Normal Neck: Full Range of Motion, Normal Inspection, Non Tender, Supple, Carotid Bruit Respiratory: Chest Non Tender, Lungs Clear, Normal Breath Sounds, No Accessory Muscle Use, No Respiratory Distress Cardiovascular: Regular Rate, Rhythm, No Edema, No Gallop, No JVD, No Murmur, Normal Peripheral Pulses Gastrointestinal: Normal Bowel Sounds, No Organomegaly, No Pulsatile Mass, Sof t, Other (hernia) Rectal: Deferred Back: Normal Inspection, No CVA Tenderness, No Vertebral Tenderness Extremity: Normal Capillary Refill, Normal Inspection, Normal Range of Motion, Non Tender, No Calf Tenderness, No Pedal Edema Neurologic/Psychiatric: Alert, Oriented x3, No Motor/Sensory Deficits, Normal Mood/Affect Skin: Normal Color, Warm/Dry, Other (Right carotid endarterectomy incision line) Lymphatic: No Adenopathy Results/Procedures Lab Patient resulted labs reviewed. FIM Transfers Therapy Code Descriptions/Definitions Functional [place] Measure: 0=Not Assessed/NA 4=Minimal Assistance 1=Total Assistance 5=Supervision or Setup 2=Maximal Assistance 6=Modified [place] 3=Moderate Assistance 7=Complete IndependenceSCALE: Activities may be completed with or without assistive devices. 4-Fgvpjrwejc-gxfalht completes the activity by him/herself with no assistance from a helper. 5-Set-up or Clean-up Assistance-helper sets up or cleans up; patient completes activity. [place] assists only prior to or following the activity. 4-Supervision or Touching Assistance-helper provides verbal cues and/or touching/steadying and/or contact guard assistance as patient completes activity. Assistance may be provided throughout the activity or intermittently. 3-Partial/Moderate Assistance-helper does LESS THAN HALF the effort. [place] lifts, holds or supports trunk or limbs, but provides less than half the effort. 2-Substantial/Maximal Assistance-helper does MORE THAN HALF the effort. [place] lifts or holds trunk or limbs and provides more than half the effort. 8-Nwnrmdxaz-flgypt does ALL the effort. Patient does none of the effort to complete the activity. Or, the assistance of 2 or more helpers is required for the patient to complete the activity. If activity was not attempted, code reason: 7-Patient Refused. 9-Not Applicable-not attempted and the patient did not perform the activity before the current illness, exacerbation or injury. 10-Not Attempted due to Environmental Limitations-(lack of equipment, weather restraints, etc.). 88-Not Attempted due to Medical Conditions or Safety Concerns. Roll Left to Right (QC): 6 Sit to Lying (QC): 6 Sit to Stand (QC): 6 Chair/Ybg-yt-Xeokd Xfer(QC): 6 Car Transfer (QC): 5 Gait Training Does the Patient Walk?: Yes Distance: 400'x2 Walk 10 feet (QC): 6 Walk 50 ft with 2 Turns(QC): 6 Walk 150 ft (QC): 6 Walking 10ft/uneven surface-QC: 5 Gait Persons Needed: 0 Gait Assistive Device: FWW Wheelchair Training Wheel 50 ft with 2 turns (QC): 9 Wheel 150 ft (QC): 9 Stair Training Stair Training: Handrails/: 1 handrail #of Steps: 12 1 Step (curb) (QC): 4 4 Steps (QC): 4 12 Steps (QC): 4 Stairs: Pattern: Reciprocal Balance Picking up an Object (QC): 5 ADL-Treatment Eating (QC): 6 Oral Hygiene (QC): 6 Bathing Location: L Arm, R Arm, L Upper Leg, R Upper Leg, L Lower Leg (including foot), R Lower Leg (including foot), Chest, Abdomen, Buttocks, Perineal Area Shower/Bathe Self (QC): 5 Upper Body Dressing (QC): 6 Lower Body Dressing (QC): 6 On/Off Footwear (QC): 6 Toileting Hygiene (QC): 6 Toilet Transfer (QC): 6 Assessment/Plan Assessment and Plan Assess & Plan/Chief Complaint Assessment: Debility with weakness Right carotid endarterectomy AF w/RVR s/p cardioversion CHF diastolic type BCC hx Hypoxia uses oxygen at night chronically now she is on continuous Fall risk Impulsive and high risk for falls Acute bacterial bronchitis initiate antibiotic on 05/31/2021 Acute exacerbation of COPD placed on steroids on 06/01/2021 Plan: Home meds Cardiology consult Inpatient rehab protocol 05/29/2021: Nausea treatment Rehab protocol 05/30/2021: Oxygen supplementation Septic work-up 05/31/2021: Antibiotic for bacterial bronchitis 06/01/2021: Supportive care Diuresis Bronchitis treatment 06/02/2021: Supportive care IV steroids 06/03/2021: IV steroids Antibiotic 06/04/2021: Patient resistant of discharge tomorrow Wean O2 06/05/2021: Moved to independent room Try to build confidence Oxygen wean 06/06/2021: Supportive care Wean oxygen Degree steroids 06/07/2021: Dr. Carroll consult for abdominal hernia cough Lasix per Dr. Knutson (1) Chronic heart failure with preserved ejection fraction (HFpEF) Assessment & Plan: Her peripheral edema is chronic and persists here in the hospital. I would just recommend that she continue to use compression stockings and take low-dose oral diuretic. Her chest x-ray from today was clear. I offered to give her a dose of intravenous Lasix tomorrow but she would like to hold off. (2) Paroxysmal atrial fibrillation Assessment & Plan: She has been maintaining sinus rhythm as an outpatient on no antiarrhythmic drug. We will continue diltiazem for rate control in the event she has recurrent atrial fibrillation and apixaban for stroke prophylaxis. (3) Primary hypertension Assessment & Plan: Blood pressures continue to be intermittently elevated but better. I previously increased the dose of diltiazem from 240 mg to 300 mg daily. I then started her on losartan. (4) Mixed hyperlipidemia Assessment & Plan: Continue statin medication. (5) Atherosclerosis of both carotid arteries Assessment & Plan: She is now status post right carotid endarterectomy. The site is healing well. She is on aspirin and statin medication. We may want to discontinue the aspirin in 1 month since she takes apixaban for the atrial fib rillation. This will help reduce the risk of hemorrhagic side effects in an octogenarian. (6) Mitral regurgitation Assessment & Plan: Her most recent echocardiogram from August 2020 only shows mild mitral regurgitation. (7) Pulmonary hypertension Assessment & Plan: This is been mild in the past and is probably related to her advanced age and chronic heart failure. ELVA BEAUCHAMP DO Jun 07, 2021 05:50
[2021-06-07] MEDS: CATHETER FLUSH 10 ML SYR IV SCH ×3 (05:53→21:04)
[2021-06-07] MEDS: CYANOCOBALAMIN 1,000 MCG (VITAMIN B-12) TABLET PO SCH (05:53)
[2021-06-07] MEDS: methylPREDNISolone 40 MG/ML (Solu-MEDROL) VIAL IV SCH (05:53)
[2021-06-07] MEDS: LEVOTHYROXINE 88 MCG (LEVOTHORID) TAB PO SCH (05:53)
[2021-06-07 07:57] VITALS: BP 134/63
[2021-06-07] MEDS: BENZONATATE 100 MG (TESSALON) CAPSULE PO SCH ×3 (08:18→21:02)
[2021-06-07] MEDS: LORATADINE (CLARITIN) 10 MG TAB PO SCH (08:18)
[2021-06-07] MEDS: APIXABAN 5 MG (ELIQUIS) TABLET PO SCH ×2 (08:18→21:01)
[2021-06-07] MEDS: FUROSEMIDE 40 MG (LASIX) TAB PO SCH (08:18)
[2021-06-07] MEDS: guaiFENesin (MUCINEX) 600 MG TAB PO SCH ×2 (08:18→21:02)
[2021-06-07] MEDS: LOSARTAN 25 MG (COZAAR) TAB PO SCH (08:18)
[2021-06-07] MEDS: KCL 8 MEQ (MICRO K) TABLET PO SCH ×2 (08:18→17:14)
[2021-06-07] MEDS: doxAzosin 1 MG (CARDURA) TAB PO SCH ×2 (08:18→21:02)
[2021-06-07] MEDS: VITAMIN D3 25 MCG (1,000 UNITS) TABLET PO SCH ×2 (08:18→21:01)
[2021-06-07] MEDS: SENNA W/DOCUSATE (SENOKOT S) TABLET PO SCH ×2 (08:21→19:36)
[2021-06-07] MEDS: polyethylene glycoL POWDER 17 GM (MIRALAX) PACK PO SCH ×2 (08:21→19:36)
[2021-06-07] MEDS: ARTIFICAL TEARS 0.4 ML UNIT DOSE (REFRESH PLUS) OU SCH ×3 (08:21→21:00)
[2021-06-07] MEDS: RT-ALBUTEROL/IPRATROPIUM 3 ML (DUONEB) VIAL INH SCH ×3 (09:44→20:31)
--- NOTE | 2021-06-07 10:23 | Physical Therapy Daily Note ---
PT Daily Note-Current Subjective Pts first words " well you know I have a hernia now" "from all the coughing". Pt. c/o pain and some edema and hard area in left lower quadrant pointing there. "and Im not leaving until this is addressed". Agrees to gait and exercise. Reviewed use of extended O2 tubing for gait etc. Pain Numeric Pain Scale: 5-Moderate Pain Location: Left Location Body Site: Abdomen Pain Description: Pressure Mental Status Patient Orientation: Normal For Age Attachments: Oxygen (1L) Transfers SCALE: Activities may be completed with or without assistive devices. 1-Apflljouzv-nmyebyr completes the activity by him/herself with no assistance from a helper. 5-Set-up or Clean-up Assistance-helper sets up or cleans up; patient completes activity. [place] assists only prior to or following the activity. 4-Supervision or Touching Assistance-helper provides verbal cues and/or touching /steadying and/or contact guard assistance as patient completes activity. Assistance may be provided throughout the activity or intermittently. 3-Partial/Moderate Assistance-helper does LESS THAN HALF the effort. [place] lifts, holds or supports trunk or limbs, but provides less than half the effort. 2-Substantial/Maximal Assistance-helper does MORE THAN HALF the effort. [place] lifts or holds trunk or limbs and provides more than half the effort. 9-Bbjyyyulu-kylvjd does ALL the effort. Patient does none of the effort to complete the activity. Or, the assistance of 2 or more helpers is required for the patient to complete the activity. If activity was not attempted, code reason: 7-Patient Refused. 9-Not Applicable-not attempted and the patient did not perform the activity before the current illness, exacerbation or injury. 10-Not Attempted due to Environmental Limitations-(lack of equipment, weather restraints, etc.). 88-Not Attempted due to Medical Conditions or Safety Concerns. all TRFs mod I Weight Bearing 10# lifting restriction and no squatting Gait Training Does the Patient Walk?: Yes Gait Assistive Device: FWW up ad angeline in room with extended O2 tubing with no issues, gait for Rx 200 ft plus no LOB Exercises NuStep Minutes: 10 NuStep Workload: 2 Assessment Current Status: Good Progress PT Short Term Goals Short Term Goals Time Frame: Jun 04, 2021 Roll Left & Right: 6 Sit to lyin Lying to sitting on side of be: 6 Sit to stand: 4 (SBA) Chair/jyx-qa-ohkqd transfer: 4 (SBA) Walk 10 feet: 4 (SBA) Walk 50 feet with two turns: 4 (SBA) Walk 150 feet: 4 (SBA) 1 step (curb): 4 (SBA) 4 steps: 4 (SBA) PT Shelter Goals Reimbursement Analyst Goals PT Reimbursement Analyst Goals Time Frame: Jun 18, 2021 Roll Left & Right (QC): 6 Sit to Lying (QC): 6 Lying-Sitting on Side/Bed(QC): 6 Sit to Stand (QC): 6 Chair/Pes-ky-Pwuxv Xfer(QC): 6 Toilet Transfer (QC): 6 Car Transfer (QC): 6 Does the Patient Walk: Yes Walk 10 feet (QC): 6 Walk 50ft with 2 Turns (QC): 6 Walk 150 ft (QC): 6 Walking 10ft on Uneven Surface: 6 1 Step (curb) (QC): 4 (SBA) 4 Steps (QC): 4 (SBA) 12 Steps (QC): 4 (SBA) Picking up an Object (QC): 6 Wheel 50 feet with 2 turns (QC: 9 Wheel 150 feet: 9 PT Plan Treatment/Plan Treatment Plan: Continue Plan of Care Treatment Plan: Bed Mobility, Education, Functional Activity Samy, Functional Strength, Group Therapy, Gait, Safety, Therapeutic Exercise, Transfers Treatment Duration: Jun 18, 2021 Frequency: At least 5 of 7 days/Wk (IRF) Estimated Hrs Per Day: 1.5 hours per day Patient and/or Family Agrees t: Yes Safety Risks/Education Patient Education: Gait Training, Correct Positioning, Safety Issues Time/GCodes Time In: 900 Time Out: 935 Total Billed Treatment Time: 35 Total Billed Treatment 1,GT15,EX20 DARION SANTIAGO [employer]BILE PARAMEDICAL EXAMINER Jun 07, 2021 10:23
[2021-06-07] MEDS ORDERED: FUROSEMIDE 40 MG/4 ML INJ (LASIX) IVP ONE (10:45)
--- NOTE | 2021-06-07 10:48 | Cardiology Progress Note ---
Progress Note-Cardiology Events since last exam Date Seen by Provider: Jun 07, 2021 Time Seen by Provider: 10:44 Events since last exam I am following her due to heart failure and history of atrial fibrillation. She has a persistent dry cough. At times, this makes her feel short of breath. Yes terday she raised a very small amount of sputum. She has persistent bilateral lower extremity edema. She denies chest discomfort, palpitations, or syncope. Certain portions of this document may have been dictated utilizing voice recognition technology. Inherent to this technology, typographical and grammatical errors may exist. As much as I am diligent to identify and correct these mistakes, some errors may remain in the document. Vitals Last set of Vitals Signs Vital Signs 06/07/21 06/07/21 07:57 09:44 Temp 36.1 Pulse 80 Resp 20 B/P (MAP) 134/63 (86) Pulse Ox 98 O2 Delivery Nasal Cannula O2 Flow Rate 1.00 Exam Vital Signs Vital Signs Date Time Temp Pulse Resp B/P (MAP) Pulse Ox O2 Delivery O2 Flow Rate FiO2 06/07/21 09:44 98 Nasal Cannula 1.00 06/07/21 07:57 36.1 80 20 134/63 (86) Physical Exam General: Alert. No acute distress. Eye: No xanthelasma. HENT: Normocephalic. Neck: Jugular venous pressure does not appear elevated. Respiratory: Lungs are clear to auscultation. Respirations are non-labored. Breath sounds are equal. Symmetrical chest wall expansion. Cardiovascular: Normal rate. Regular rhythm. No murmur. No gallop. 1-2+ bilateral pretibial edema. Gastrointestinal: Soft. Normal bowel sounds. Skin: Warm. Dry. Neurologic: Alert and oriented to person, place, time. Cranial nerves 3-11 grossly intact. Psychiatric: Cooperative. Appropriate mood & affect. Diagnosis/Problems Diagnosis/Problems (1) Chronic heart failure with preserved ejection fraction (HFpEF) Assessment & Plan: Her peripheral edema is chronic and persists here in the hospital. I would just recommend that she continue to use compression stockings and take low-dose oral diuretic. Her chest x-ray from 06/06 was clear. Given her persistent cough and peripheral edema, I will give her another dose of IV Lasix today. Follow-up BMP in the morning. (2) Paroxysmal atrial fibrillation Assessment & Plan: She has been maintaining sinus rhythm as an outpatient on no antiarrhythmic drug. We will continue diltiazem for rate control in the event she has recurrent atrial fibrillation and apixaban for stroke prophylaxis. (3) Primary hypertension Assessment & Plan: Blood pressures have been intermittently elevated but continue to improve since increasing diltiazem and starting losartan. (4) Mixed hyperlipidemia Assessment & Plan: Continue statin medication. (5) Atherosclerosis of both carotid arteries Assessment & Plan: She is now status post right carotid endarterectomy. The site is healing well. She is on aspirin and statin medication. We may want to discontinue the aspirin in 1 month since she takes apixaban for the atrial fibrillation. This will help reduce the risk of hemorrhagic side effects in an octogenarian. (6) Mitral regurgitation Assessment & Plan: Her most recent echocardiogram from August 2020 only shows mild mitral regurgitation. (7) Pulmonary hypertension Assessment & Plan: This is been mild in the past and is probably related to her advanced age and chronic heart failure. JAIRON MORRISSEY JR, MD Jun 07, 2021 10:48
[2021-06-07] MEDS: DOCUSATE SODIUM 100 MG (COLACE) CAP PO SCH (19:36)
[2021-06-07 19:54] VITALS: BP 98/63
[2021-06-07] MEDS: LACTOBACILLUS ACIDOPHILUS (PROBIOTIC) CAPSULE PO SCH (21:01)
[2021-06-07] MEDS: ASPIRIN E.C. 81 MG (ECOTRIN) TAB PO SCH (21:02)
[2021-06-07] MEDS: GABAPENTIN 100 MG (NEURONTIN) CAP PO SCH (21:02)
[2021-06-07] MEDS: AtorvaSTATin TABLET 10 MG TABLET PO SCH (21:04)
[2021-06-08] MEDS: methylPREDNISolone 40 MG/ML (Solu-MEDROL) VIAL IV SCH (06:31)
[2021-06-08] MEDS: CATHETER FLUSH 10 ML SYR IV SCH ×3 (06:31→21:08)
[2021-06-08] MEDS: LEVOTHYROXINE 88 MCG (LEVOTHORID) TAB PO SCH (06:32)
[2021-06-08] MEDS: CYANOCOBALAMIN 1,000 MCG (VITAMIN B-12) TABLET PO SCH ×2 (06:32→09:49)
[2021-06-08 07:09] LABS: POTASSIUM 3.3 MMOL/L (3.6-5.0)
[2021-06-08 07:10] LABS: CALCIUM 8.2 MG/DL (8.5-10.1)
[2021-06-08 07:14] LABS: CREATININE SERUM 0.78 MG/DL (0.60-1.30)
[2021-06-08 07:16] VITALS: BP 120/57
--- NOTE | 2021-06-08 07:25 | PM&R Progress Note ---
Subjective HPI/CC On Admission Date Seen by Provider: Jun 08, 2021 Time Seen by Provider: 12:30 Subjective/Events-last exam 06/08/21: Patient doing well Ad angeline now Weaning O2 Abdominal hernia discussed Cough is better 06/07/2021: Patient feels pretty good Lungs improved Lasix will be given for Dr. Knutson Abdominal hernia after cough was noted we will consult Dr. Carroll 06/06/2021: Patient feels better Weaning down from continuous oxygen No major issues Lungs are still wheezy but improved Conferred with her PCP Dr. 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 causes the Robitussin to burn Discharge planned for but she is very hesitant and does not feel like she is ready to go Home O2 evaluation will be initiated 06/03/2021: Pt doing a lot better Coughing a bit Not sleeping too well due to steroids Bowels moved after MiraLax Coarse breath sounds on the lung but much improved 06/02/2021: Pt working with PT Covid and flu swabs negative Cefdinir maintained Steroids will be initiated after midline placed We will add cough suppressant 06/01/2021: Patient doing better today Bronchitis treatment tolerated We will give 1 dose of Solu-Medrol in 80mg IM since she does not have IV access Cough is improved 05/31/2021: Patient doing a lot better today Very frail status Cough is productive now Bacterial bronchitis will be initiating antibiotic 05/30/2021: Patient short of breath Oxygen maintained Fully Covid vaccinated with booster including flu Checked labs completed septic work-up and chest x-ray all were negative 05/29/2021: Pt doing okay Had some nausea, received Zofran Biofreeze will be from her home supply Cough is noted but lungs are clear Cardiology will be consulted Review of Systems General: Fatigue, Malaise Pulmonary: Dyspnea, Cough Objective Exam Vital Signs Vital Signs Date Time Temp Pulse Resp B/P (MAP) Pulse Ox O2 Delivery O2 Flow Rate FiO2 06/08/21 20:22 37.2 87 20 117/60 (79 92 Room Air 06/08/21 19:39 1.00 Capillary Refill : General Appearance: No Apparent Distress, WD/WN, Anxious, Chronically ill HEENT: PERRL/EOMI, Normal ENT Inspection, Pharynx Normal Neck: Full Range of Motion, Normal Inspection, Non Tender, Supple, Carotid Bruit Respiratory: Chest Non Tender, Normal Breath Sounds, No Accessory Muscle Use, No Respiratory Distress, Crackles Cardiovascular: Regular Rate, Rhythm, No Edema, No Gallop, No JVD, No Murmur, Normal Peripheral Pulses Gastrointestinal: Normal Bowel Sounds, No Organomegaly, No Pulsatile Mass, Soft, Other (hernia) Rectal: Deferred Back: Normal Inspection, No CVA Tenderness, No Vertebral Tenderness Extremity: Normal Capillary Refill, Normal Inspection, Normal Range of Motion, Non Tender, No Calf Tenderness, No Pedal Edema Neurologic/Psychiatric: Alert, Oriented x3, No Motor/Sensory Deficits, Normal Mood/Affect Skin: Normal Color, Warm/Dry, Other (Right carotid endarterectomy incision line) Lymphatic: No Adenopathy Results/Procedures Lab Laboratory Tests 06/08/21 06:45 Patient resulted labs reviewed. FIM Transfers Therapy Code Descriptions/Definitions Functional [place] Measure: 0=Not Assessed/NA 4=Minimal Assistance 1=Total Assistance 5=Supervision or Setup 2=Maximal Assistance 6=Modified [place] 3=Moderate Assistance 7=Complete IndependenceSCALE: Activities may be completed with or without assistive devices. 2-Ualaifkhfy-nzbyznu completes the activity by him/herself with no assistance from a helper. 5-Set-up or Clean-up Assistance-helper sets up or cleans up; patient completes activity. [place] assists only prior to or following the activity. 4-Supervision or Touching Assistance-helper provides verbal cues and/or touc rebecca/steadying and/or contact guard assistance as patient completes activity. Assistance may be provided throughout the activity or intermittently. 3-Partial/Moderate Assistance-helper does LESS THAN HALF the effort. [place] lifts, holds or supports trunk or limbs, but provides less than half the effort. 2-Substantial/Maximal Assistance-helper does MORE THAN HALF the effort. [place] lifts or holds trunk or limbs and provides more than half the effort. 9-Jrrxoddfd-mcrblo does ALL the effort. Patient does none of the effort to complete the activity. Or, the assistance of 2 or more helpers is required for the patient to complete the activity. If activity was not attempted, code reason: 7-Patient Refused. 9-Not Applicable-not attempted and the patient did not perform the activity be fore the current illness, exacerbation or injury. 10-Not Attempted due to Environmental Limitations-(lack of equipment, weather restraints, etc.). 88-Not Attempted due to Medical Conditions or Safety Concerns. Roll Left to Right (QC): 6 Sit to Lying (QC): 6 Sit to Stand (QC): 6 Chair/Gpx-ty-Psbcz Xfer(QC): 6 Car Transfer (QC): 5 Gait Training Does the Patient Walk?: Yes Distance: 400'x2 Walk 10 feet (QC): 6 Walk 50 ft with 2 Turns(QC): 6 Walk 150 ft (QC): 6 Walking 10ft/uneven surface-QC: 5 Gait Persons Needed: 0 Gait Assistive Device: FWW Wheelchair Training Wheel 50 ft with 2 turns (QC): 9 Wheel 150 ft (QC): 9 Stair Training Stair Training: Handrails/: 1 handrail #of Steps: 12 1 Step (curb) (QC): 4 4 Steps (QC): 4 12 Steps (QC): 4 Stairs: Pattern: Reciprocal Balance Picking up an Object (QC): 5 ADL-Treatment Eating (QC): 6 Oral Hygiene (QC): 6 Bathing Location: L Arm, R Arm, L Upper Leg, R Upper Leg, L Lower Leg (including foot), R Lower Leg (including foot), Chest, Abdomen, Buttocks, Perineal Area Shower/Bathe Self (QC): 5 Upper Body Dressing (QC): 6 Lower Body Dressing (QC): 6 On/Off Footwear (QC): 6 Toileting Hygiene (QC): 6 Toilet Transfer (QC): 6 Assessment/Plan Assessment and Plan Assess & Plan/Chief Complaint Assessment: Debility with weakness Right carotid endarterectomy AF w/RVR s/p cardioversion CHF diastolic type BCC hx Hypoxia uses oxygen at night chronically now she is on continuous Fall risk Impulsive and high risk for falls Acute bacterial bronchitis initiate antibiotic on 05/31/2021 Acute exacerbation of COPD placed on steroids on 06/01/2021 Plan: Home meds Cardiology consult Inpatient rehab protocol 05/29/2021: Nausea treatment Rehab protocol 05/30/2021: Oxygen supplementation Septic work-up 05/31/2021: Antibiotic for bacterial bronchitis 06/01/2021: Supportive care Diuresis Bronchitis treatment 06/02/2021: Supportive care IV steroids 06/03/2021: IV steroids Antibiotic 06/04/2021: Patient resistant of discharge tomorrow Wean O2 06/05/2021: Moved to independent room Try to build confidence Oxygen wean 06/06/2021: Supportive care Wean oxygen Degree steroids 06/07/2021: Dr. Carroll consult for abdominal hernia cough Lasix per Dr. Knutson 06/08/21: Monitor cough O2 wean (1) Chronic heart failure with preserved ejection fraction (HFpEF) Assessment & Plan: Her peripheral edema is chronic and persists here in the hospital. I would just recommend that she continue to use compression stockings and take low-dose oral diuretic. Her chest x-ray from 06/06 was clear. Given her persistent cough and peripheral edema, I will give her another dose of IV Lasix today. Follow-up BMP in the morning. (2) Paroxysmal atrial fibrillation Assessment & Plan: She has been maintaining sinus rhythm as an outpatient on no antiarrhythmic drug. We will continue diltiazem for rate control in the event she has recurrent atrial fibrillation and apixaban for stroke prophylaxis. (3) Primary hypertension Assessment & Plan: Blood pressures have been intermittently elevated but continue to improve since increasing diltiazem and starting losartan. (4) Mixed hyperlipidemia Assessment & Plan: Continue statin medication. (5) Atherosclerosis of both carotid arteries Assessment & Plan: She is now status post right carotid endarterectomy. The s ite is healing well. She is on aspirin and statin medication. We may want to discontinue the aspirin in 1 month since she takes apixaban for the atrial fibrillation. This will help reduce the risk of hemorrhagic side effects in an octogenarian. (6) Mitral regurgitation Assessment & Plan: Her most recent echocardiogram from August 2020 only shows mild mitral regurgitation. (7) Pulmonary hypertension Assessment & Plan: This is been mild in the past and is probably related to her advanced age and chronic heart failure. ELVA BEAUCHAMP DO Jun 08, 2021 07:25
[2021-06-08] MEDS: RT-ALBUTEROL/IPRATROPIUM 3 ML (DUONEB) VIAL INH SCH ×3 (07:56→19:39)
[2021-06-08] MEDS: LORATADINE (CLARITIN) 10 MG TAB PO SCH (09:49)
[2021-06-08] MEDS: BENZONATATE 100 MG (TESSALON) CAPSULE PO SCH ×3 (09:49→21:06)
[2021-06-08] MEDS: VITAMIN D3 25 MCG (1,000 UNITS) TABLET PO SCH ×2 (09:49→21:06)
[2021-06-08] MEDS: LOSARTAN 25 MG (COZAAR) TAB PO SCH (09:49)
[2021-06-08] MEDS: APIXABAN 5 MG (ELIQUIS) TABLET PO SCH ×2 (09:49→21:05)
[2021-06-08] MEDS: FUROSEMIDE 40 MG (LASIX) TAB PO SCH (09:49)
[2021-06-08] MEDS: guaiFENesin (MUCINEX) 600 MG TAB PO SCH ×2 (09:49→21:06)
[2021-06-08] MEDS: KCL 8 MEQ (MICRO K) TABLET PO SCH ×2 (09:50→17:49)
[2021-06-08] MEDS: ARTIFICAL TEARS 0.4 ML UNIT DOSE (REFRESH PLUS) OU SCH ×3 (09:52→21:07)
[2021-06-08] MEDS: polyethylene glycoL POWDER 17 GM (MIRALAX) PACK PO SCH ×2 (09:53→19:15)
[2021-06-08] MEDS: SENNA W/DOCUSATE (SENOKOT S) TABLET PO SCH ×4 (09:53→19:15)
[2021-06-08] MEDS: doxAzosin 1 MG (CARDURA) TAB PO SCH ×2 (09:54→21:06)
[2021-06-08] MEDS: MAGNESIUM OXIDE (MAG-OX)400 MG TAB PO SCH (09:57)
[2021-06-08] MEDS: DOCUSATE SODIUM 100 MG (COLACE) CAP PO PRN (10:15)
--- NOTE | 2021-06-08 10:46 | Consultation - Surgery ---
YARA CALLAWAY MED STUDENT 06/08/21 1046: History of Present Illness History of Present Illness Patient Consulted On(shavonne/time) 06/08/21 10:40 Date Seen by Provider: Jun 08, 2021 Time Seen by Provider: 10:00 History of Present Illness Mrs. Mendoza is a 81yo female in inpatient rehab that has been consulted due to abdominal hernia. She has a recent surgery to clean out her R carotid. She was in rehab coughing pretty hard sometime this week when she felt a sudden shooting and intense pain in her abdomen. She states that it is gotten worse sense. Now there is quite a big bulge in the middle of her lower abdomen that is pretty tender. The mass is firm and non reducible. Coughing makes the pain a lot worse. There is also some pain on the underside of the hernia but she is unsure if that was there before. She is eating and drinking without nausea or vomiting. LBM was a couple of days ago. She is on stool softeners. LBM was a couple of days ago. States she is unsure if she is passing gas or not. She has not had a hernia before. She has a bit of an extensive surgical history including D/C, Endometriosis, Complete hysterectomy (took appendix with this surgery), bladder lift, and her carotid surgery. Allergies and Home Medications Allergies Coded Allergies: codeine (Unverified Allergy, Mild, Vomiting, 05/28/21) adhesive tape (Unverified Allergy, Unknown, 11/27/15) amoxicillin (Unverified Allergy, Unknown, 11/27/15) Patient Home Medication List ALPRAZolam (Xanax Tablet) 0.25 Mg Tab, 0.25 MG PO Q8H PRN for ANXIETY Prescribed by: ELVA BEAUCHAMP on 06/10/21 1002 Acetaminophen (Tylenol) 325 Mg Tablet, 325 MG PO Q6H PRN for PAIN-MILD (1-4), (Reported) Entered as Reported by: BROOKLYNN MAURICE on 05/28/21 1031 Last Action: Held Apixaban (Eliquis) 5 Mg Tablet, 5 MG PO BID, (Reported) Entered as Reported by: BROOKLYNN MAURICE on 05/28/21 1031 Last Action: Continued Aspirin (Aspirin EC) 81 Mg Tablet.dr, 81 MG PO HS, (Reported) Entered as Reported by: BROOKLYNN MAURICE on 05/28/211030 Last Action: Continued Benzonatate (Tessalon Perles) 100 Mg Capsule, 200 MG PO TID Prescribed by: ELVA BEAUCHAMP on 06/10/211000 Carboxymethyl/Gly/Poly80/Pf (Refresh Optive Abdiaziz-3 Drops) 1 Each Droperette, 1 DROP OU TID, (Reported) Entered as Reported by: BROOKLYNN MAURICE on 05/28/211030 Last Action: Converted Carboxymethylcellulose Sodium (Refresh Liquigel) 15 Ml Drp.lq.gel, 1 DROP OU BID, (Reported) Entered as Reported by: BROOKLYNN MAURICE on 05/28/211030 Last Action: Converted Cetirizine HCl (Cetirizine HCl) 10 Mg Tablet, 10 MG PO DAILY, (Reported) Entered as Reported by: BROOKLYNN MAURICE on 05/28/211030 Last Action: Converted Cholecalciferol (Vitamin D3) (Vitamin D3) 25 Mcg Capsule, 25 MCG PO HS, (Reported) Entered as Reported by: BROOKLYNN MAURICE on 05/28/211030 Last Action: Converted Cholecalciferol (Vitamin D3) (Vitamin D3) 25 Mcg Capsule, 50 MCG PO DAILY, (Reported) Entered as Reported by: BROOKLYNN MAURICE on 05/28/211030 Last Action: Converted Cyanocobalamin (Vitamin B-12) (Vitamin B-12) 500 Mcg Tablet, 500 MCG PO DAILY, (Reported) Entered as Reported by: BROOKLYNN MAURICE on 05/28/211030 Last Action: Converted Diltiazem HCl (Diltiazem ER) 240 Mg Tab.er.24h, 240 MG PO DAILY, (Reported) Entered as Reported by: BROOKLYNN MAURICE on 05/28/211030 Last Action: Converted Diltiazem HCl (Diltiazem 24Hr ER) 300 Mg Cap.er.24h, 300 MG PO DAILY@0900 Prescribed by: ELVA BEAUCHAMP on 06/10/211000 Docusate Sodium (Docusate Sodium) 100 Mg Tablet, 100 MG PO HS, (Reported) Entered as Reported by: BROOKLYNN MAURICE on 05/28/211030 Last Action: Converted Doxazosin Mesylate (Doxazosin Mesylate) 1 Mg Tablet, 1 MG PO BID, (Reported) Entered as Reported by: BROOKLYNN MAURICE on 05/28/211030 Last Action: Continued Fluticasone Propionate (Flonase Allergy Relief) 9.9 Ml Toutle.susp, 2 SPRAY NSEACH HS PRN for ALLERGY SYMPTOMS, (Reported) Entered as Reported by: BROOKLYNN MAURICE on 05/28/211030 Last Action: Converted Fluticasone/Salmeterol (Fluticasone-Salmeterol 113-14) 1 Each Aer.pow.ba, 0 EACH IH DAILY@0800 Prescribed by: ELVA BEAUCHAMP on 06/10/21 1001 Furosemide (Furosemide) 40 Mg Tablet, 40 MG PO DAILY Prescribed by: ELVA BEAUCHAMP on 06/10/21 100 Gabapentin (Gabapentin) 100 Mg Capsule, 200 MG PO HS Prescribed by: ELVA BEAUCHAMP on 06/10/21 100 Guaifenesin (Mucinex) 600 Mg Tab.er.12h, 600 MG PO BID Prescribed by: ELVA BEAUCHAMP on 06/10/21 100 Lactobacillus Rhamnosus GG (Culturelle) 1 Each Capsule, 1 EACH PO HS, (Reported) Entered as Reported by: BROOKLYNN MAURICE on 05/28/211030 Last Action: Converted Levothyroxine Sodium (Levothyroxine Sodium) 88 Mcg Tablet, 88 MCG PO DAILY, (Reported) Entered as Reported by: BROOKLYNN MAURICE on 05/28/211030 Last Action: Continued Losartan Potassium (Losartan Potassium) 25 Mg Tablet, 25 MG PO DAILY Prescribed by: ELVA BEAUCHAMP on 06/10/21 100 Magnesium Oxide (Magnesium) 400 Mg Tablet, 400 MG PO Q48H, (Reported) Entered as Reported by: BROOKLYNN MAURICE on 05/28/211030 Last Action: Converted Menthol (Biofreeze) 118 Ml Gel..ml., 1 APPLIC TP TID PRN for ARTHRITIS, (Reported) Entered as Reported by: BROOKLYNN MAURICE on 05/28/211030 Last Action: Converted Potassium Chloride (Potassium Chloride) 8 Meq Capsule.er, 16 MEQ PO BID WITH MEALS Prescribed by: ELVA BEAUCHAMP on 06/10/21 1001 Prednisone (Prednisone) 20 Mg Tab, 20 MG PO DAILY@0700 Prescribed by: ELVA BEAUCHAMP on 06/10/21 1001 Simvastatin (Simvastatin) 20 Mg Tablet, 20 MG PO HS, (Reported) Entered as Reported by: BROOKLYNN MAURICE on 05/28/21 1031 Last Action: Continued Sodium Chloride/Aloe Vera ([place] Saline Nasal Gel) 14.1 Gm Gel..gram., 1 APPLIC NS BID PRN for ALLERGY SYMPTOMS, (Reported) Entered as Reported by: BROOKLYNN MAURICE on 05/28/21 1031 Last Action: Continued Tramadol HCl (Tramadol HCl) 50 Mg Tablet, 50 MG PO TID PRN for PAIN-MODERATE (5- 7) Prescribed by: ELVA BEAUCHAMP on 06/10/21 1002 [Magic Mouthwash] LIQUID, 15 ML QID PRN for MOUTH PAIN, (Reported) Entered as Reported by: BROOKLYNN MAURICE on 05/28/21 1031 Last Action: Converted Past [id number]-[id number] Hx Patient Social History Smoking Status: Never a Smoker Former Smoker, Quit: Nov 26, 1984 Recent Hopitalizations: No Alcohol Use?: No Have you traveled recently?: No Immunizations Up To Date Tetanus Booster (TDap): Unknown Date of Pneumonia Vaccine: Jan 13, 2016 Date of Influenza Vaccine: May 28, 2021 Seasonal Allergies Seasonal Allergies: No Surgeries History of Surgeries: Yes (BASAL CELL CA REMOVED, SX FOR ENDOMETRIOSIS) Surgeries: Appendectomy, Bladder Surgery, Hysterectomy, Vascular Surgery (Right carotid endarterectomy) Respiratory History of Respiratory Disorde: Yes Respiratory Disorders: Pneumonia, COPD Cardiovascular History of Cardiac Disorders: Yes Cardiac Disorders: Atrial Fibrillation, Chronic Edema/Swelling, Hypertension Neurological History of Neurological Disord: No Reproductive System Hx Reproductive Disorders: No Genitourinary History of Genitourinary Disor: Yes Genitourinary Disorders: Kidney Infection, Bladder Infection Gastrointestinal History of Gastrointestinal Di: No Musculoskeletal History of Musculoskeletal Dis: No Musculoskeletal Disorders: Scoliosis Endocrine History of Endocrine Disorders: Yes Endocrine Disorders: Hypothyroidsim HEENT History of HEENT Disorders: Yes (CATARACTS REMOVED) HEENT Disorders: Cataract Loss of Vision: Bilateral Hearing Impairment: Hard of Hearing Cancer History of Cancer: No Psychosocial History of Psychiatric Problem: Yes Behavioral Health Disorders: Sleep Difficulties, Anxiety Integumentary History of Skin or Integumenta: No Blood Transfusions History of Blood Disorders: No Adverse Reaction to a Blood Tr: No Family Medical History Significant Family History: Cancer (Breast cancer ) Family Medial History: Asthma Colon cancer Deafness or hearing loss Diabetes mellitus Hypertension Neoplasm Thyroid disease Review of Systems-General Constitutional: No chills, No dizziness, No fever EENTM: No vision loss, No throat pain Respiratory: cough; No hemoptysis, No phlegm, No short of breath Cardiovascular: No chest pain; edema; No palpitations Gastrointestinal: abdominal pain (Lower and in midline, especially with coughinge), constipation; No diarrhea, No dysphagia, No hematemesis, No melena, No nausea, No vomiting; other (Bulging hernia in middle lower abdomen) Genitourinary: No dysuria, No frequency, No hematuria Musculoskeletal: other (Denies Leg and foot pain) Skin: No lesions, No rash; other (bruising on lower abdomen) Psychiatric/Neurological: Denies Headache Physical Exam-General Problems Physical Exam Vital Signs Vital Signs - First Documented 06/02/21 06/02/21 06:45 07:08 Temp 37.0 Pulse 100 Resp 20 B/P (MAP) 152/70 (97) Pulse Ox 93 O2 Delivery Nasal Cannula O2 Flow Rate 2.00 Capillary Refill : General Appearance: WD/WN, no apparent distress Eyes: Bilateral Eye PERRL, Bilateral Eye EOMI HEENT: pharynx normal Respiratory: lungs clear, normal breath sounds, no respiratory distress, no accessory muscle use Cardiovascular: regular rate, rhythm; No no edema; no murmur Peripheral Pulses: 2+ Radial Pulses (R), 2+ Radial Pulses (L) Gastrointestinal: normal bowel sounds, tenderness, hernia, other (Bulging hernia located in the middle lower abdomen. It is not reducable and is a bit tender to palpation. Hurts a lot when coughing. There is some bruising noted at the underside of the hernia. ) Rectal: deferred Extremities: normal range of motion, non-tender, no calf tenderness, swelling Neurologic/Psychiatric: alert, normal mood/affect, oriented x 3 Skin: normal color, warm/dry Data Review Labs Laboratory Tests 06/08/21 06:45: Sodium Level 140, Potassium Level 3.3L, Chloride Level 98, Carbon Dioxide Level 32, Anion Gap 10, Blood Urea Nitrogen 26H, Creatinine 0.78, Estimat Glomerular Filtration Rate 71, BUN/Creatinine Ratio 33, Glucose Level 102, Calcium Level 8.2L Microbiology 12/27/21 Gram Stain - Final, Complete 06/02/21 Sputum Culture - Final, Complete Usual upper respiratory arti 06/02/21 Blood Culture - Final, Complete Staph, 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 Could have been a defect from one of these or a slow progressing problem. Probably will need to get abdominal Ct to see exactly what has moved into the hernia. She states she is still eating and drinking okay. Has not had a bowel movement and unsure if passing gas. Should give some stool softeners and make sure her bowels are still able to function. Monitor for signs of extreme pain or ceasing of bowel function, will be a surgical emergency if bowel becomes strangulated. At this time might want to hold off surgery if she can tolerate due to actively recovering from a vascular surgery. I think the hernia is too big to be repaired laproscopically and would likely need a more extensive procedure. K replacement for hypokalemia. She is on Lasix for her LE edema GRETA SPANGLER DO 06/10/21 1115: History of Present Illness History of Present Illness Date Seen by Provider: Jun 10, 2021 Time Seen by Provider: 09:42 History of Present Illness Surgery asked to see pt regarding abdominal distention/mass, r/o hernia. When I spoke to pt she denied that the area was bigger or firmer. Pain was minimal now. This all started after a long episode of coughing. Durring the coughing she felt a sudden shooting pain. Today there is a large hematoma covering the entire lower abdomen. She is tolerating diet with normal BMs. Pt was seen by my student on Wednesday, unfortunately I forgot to see her until today (06/10/21). Allergies and Home Medications Allergies Coded Allergies: codeine (Unverified Allergy, Mild, Vomiting, 05/28/21) adhesive tape (Unverified Allergy, Unknown, 11/27/15) amoxicillin (Unverified Allergy, Unknown, 11/27/15) Patient Home Medication List Home Medication List Reviewed: Yes ALPRAZolam (Xanax Tablet) 0.25 Mg Tab, 0.25 MG PO Q8H PRN for ANXIETY Prescribed by: ELVA BEAUCHAMP on 06/10/21 1002 Acetaminophen (Tylenol) 325 Mg Tablet, 325 MG PO Q6H PRN for PAIN-MILD (1-4), (Reported) Entered as Reported by: BROOKLYNN MAURICE on 05/28/211030 Last Action: Held Apixaban (Eliquis) 5 Mg Tablet, 5 MG PO BID, (Reported) Entered as Reported by: BROOKLYNN MAURICE on 05/28/211030 Last Action: Continued Aspirin (Aspirin EC) 81 Mg Tablet.dr, 81 MG PO HS, (Reported) Entered as Reported by: BROOKLYNN MAURICE on 05/28/211030 Last Action: Continued Benzonatate (Tessalon Perles) 100 Mg Capsule, 200 MG PO TID Prescribed by: ELVA BEAUCHAMP on 06/10/21 1001 Carboxymethyl/Gly/Poly80/Pf (Refresh Optive Abdiaziz-3 Drops) 1 Each Droperette, 1 DROP OU TID, (Reported) Entered as Reported by: BROOKLYNN MAURICE on 05/28/211030 Last Action: Converted Carboxymethylcellulose Sodium (Refresh Liquigel) 15 Ml Drp.lq.gel, 1 DROP OU BID, (Reported) Entered as Reported by: BROOKLYNN MAURICE on 05/28/211030 Last Action: Converted Cetirizine HCl (Cetirizine HCl) 10 Mg Tablet, 10 MG PO DAILY, (Reported) Entered as Reported by: BROOKLYNN MAURICE on 05/28/211030 Last Action: Converted Cholecalciferol (Vitamin D3) (Vitamin D3) 25 Mcg Capsule, 25 MCG PO HS, (Reported) Entered as Reported by: BROOKLYNN MAURICE on 05/28/211030 Last Action: Converted Cholecalciferol (Vitamin D3) (Vitamin D3) 25 Mcg Capsule, 50 MCG PO DAILY, (Reported) Entered as Reported by: BROOKLYNN MAURICE on 05/28/211030 Last Action: Converted Cyanocobalamin (Vitamin B-12) (Vitamin B-12) 500 Mcg Tablet, 500 MCG PO DAILY, (Reported) Entered as Reported by: BROOKLYNN MAURICE on 05/28/211030 Last Action: Converted Diltiazem HCl (Diltiazem ER) 240 Mg Tab.er.24h, 240 MG PO DAILY, (Reported) Entered as Reported by: BROOKLYNN MAURICE on 05/28/21 103 Last Action: Converted Diltiazem HCl (Diltiazem 24Hr ER) 300 Mg Cap.er.24h, 300 MG PO DAILY@0900 Prescribed by: ELVA BEAUCHAMP on 06/10/21 1001 Docusate Sodium (Docusate Sodium) 100 Mg Tablet, 100 MG PO HS, (Reported) Entered as Reported by: BROOKLYNN MAURICE on 05/28/21 103 Last Action: Converted Doxazosin Mesylate (Doxazosin Mesylate) 1 Mg Tablet, 1 MG PO BID, (Reported) Entered as Reported by: BROOKLYNN MAURICE on 05/28/211030 Last Action: Continued Fluticasone Propionate (Flonase Allergy Relief) 9.9 Ml Toutle.susp, 2 SPRAY NSEACH HS PRN for ALLERGY SYMPTOMS, (Reported) Entered as Reported by: BROOKLYNN MAURICE on 05/28/211030 Last Action: Converted Fluticasone/Salmeterol (Fluticasone-Salmeterol 113-14) 1 Each Aer.pow.ba, 0 EACH IH DAILY@0800 Prescribed by: ELVA BEAUCHAMP on 06/10/21 1001 Furosemide (Furosemide) 40 Mg Tablet, 40 MG PO DAILY Prescribed by: ELVA BEAUCHAMP on 06/10/21 1001 Gabapentin (Gabapentin) 100 Mg Capsule, 200 MG PO HS Prescribed by: ELVA BEAUCHAMP on 06/10/21 1001 Guaifenesin (Mucinex) 600 Mg Tab.er.12h, 600 MG PO BID Prescribed by: ELVA BEAUCHAMP on 06/10/21 1001 Lactobacillus Rhamnosus GG (Culturelle) 1 Each Capsule, 1 EACH PO HS, (Reported) Entered as Reported by: BROOKLYNN MAURICE on 05/28/21 103 Last Action: Converted Levothyroxine Sodium (Levothyroxine Sodium) 88 Mcg Tablet, 88 MCG PO DAILY, (Reported) Entered as Reported by: BROOKLYNN MAURICE on 05/28/211030 Last Action: Continued Losartan Potassium (Losartan Potassium) 25 Mg Tablet, 25 MG PO DAILY Prescribed by: ELVA BEAUCHAMP on 06/10/21 1001 Magnesium Oxide (Magnesium) 400 Mg Tablet, 400 MG PO Q48H, (Reported) Entered as Reported by: BROOKLYNN MAURICE on 05/28/21 1031 Last Action: Converted Menthol (Biofreeze) 118 Ml Gel..ml., 1 APPLIC TP TID PRN for ARTHRITIS, (Reported) Entered as Reported by: BROOKLYNN MAURICE on 05/28/21 1031 Last Action: Converted Potassium Chloride (Potassium Chloride) 8 Meq Capsule.er, 16 MEQ PO BID WITH MEALS Prescribed by: ELVA BEAUCHAMP on 06/10/21 1001 Prednisone (Prednisone) 20 Mg Tab, 20 MG PO DAILY@0700 Prescribed by: ELVA BEAUCHAMP on 06/10/21 1001 Simvastatin (Simvastatin) 20 Mg Tablet, 20 MG PO HS, (Reported) Entered as Reported by: BROOKLYNN MAURICE on 05/28/21 103 Last Action: Continued Sodium Chloride/Aloe Vera ([place] Saline Nasal Gel) 14.1 Gm Gel..gram., 1 APPLIC NS BID PRN for ALLERGY SYMPTOMS, (Reported) Entered as Reported by: BROOKLYNN MAURICE on 05/28/21 103 Last Action: Continued Tramadol HCl (Tramadol HCl) 50 Mg Tablet, 50 MG PO TID PRN for PAIN-MODERATE (5- 7) Prescribed by: ELVA BEAUCHAMP on 06/10/21 1002 [Magic Mouthwash] LIQUID, 15 ML QID PRN for MOUTH PAIN, (Reported) Entered as Reported by: BROOKLYNN MAURICE on 05/28/21 103 Last Action: Converted Past Rjokmeu-Mqelcb-Xkkxox Hx Patient Social History Smoking Status: Former Smoker Alcohol Use?: No Surgeries History of Surgeries: Yes Surgeries: Appendectomy, Bladder Surgery, Hysterectomy, Vascular Surgery (Right carotid endarterectomy) Respiratory History of Respiratory Disorde: Yes Respiratory Disorders: Pneumonia, COPD Cardiovascular History of Cardiac Disorders: Yes Cardiac Disorders: Atrial Fibrillation, Hypertension, Peripheral Vascular Neurological History of Neurological Disord: No Genitourinary History of Genitourinary Disor: Yes Genitourinary Disorders: Bladder Infection Gastrointestinal History of Gastrointestinal Di: No Musculoskeletal History of Musculoskeletal Dis: Yes Musculoskeletal Disorders: Arthritis, Scoliosis Endocrine History of Endocrine Disorders: Yes Endocrine Disorders: Hypothyroidsim HEENT History of HEENT Disorders: No Cancer History of Cancer: No Psychosocial History of Psychiatric Problem: No Family Medical History Significant Family History: Cancer (Breast cancer ) Family Medial History: Asthma Colon cancer Deafness or hearing loss Diabetes mellitus Hypertension Neoplasm Thyroid disease Review of Systems-General Constitutional: No chills, No dizziness, No fever EENTM: No vision loss, No throat pain Respiratory: cough; No hemoptysis, No phlegm, No short of breath Cardiovascular: No chest pain; edema, Hx of Intervention, palpitations Gastrointestinal: abdominal pain (Lower and in midline, especially with coughinge), constipation; No diarrhea, No dysphagia, No hematemesis Genitourinary: No dysuria, No frequency, No hematuria Musculoskeletal: joint pain, joint swelling, other (Denies Leg and foot pain) Skin: No lesions, No rash; other (bruising on lower abdomen) Psychiatric/Neurological: Denies Anxiety, Denies Depressed, Denies Headache Physical Exam-General Problems Physical Exam General Appearance: WD/WN, no apparent distress Eyes: Bilateral Eye PERRL, Bilateral Eye EOMI HEENT: pharynx normal; No scleral icterus (R), No scleral icterus (L) Neck: non-tender, supple Respiratory: lungs clear, normal breath sounds, no respiratory distress, no accessory muscle use Cardiovascular: regular rate, rhythm, no murmur Gastrointestinal: normal bowel sounds, tenderness, other (Bulging located in the middle lower abdomen, with very large hematoma. I don't think this is a hernia; it is not reducable and is a bit tender to palpation. Hurts a lot when coughing. ) Rectal: deferred Extremities: normal range of motion, non-tender, no calf tenderness, swelling Neurologic/Psychiatric: alert, normal mood/affect, oriented x 3 Skin: normal color, warm/dry Assessment/Plan Assessment/Plan Assessment/Plan Abdominal wall hematoma hx of abdomal surgeries S/P right carotid endarterectomy--healing well Hypokalemia LE edema Pt most likely just burst a blood vessel while coughing and developed a large hematoma. It is not spreading and appears to have stopped on its own. Pt has minimal abdominal pain (basically gettting better) if it worsens or does not go down she may benefit from an abdominal CT to see exactly what is going on with abdominal wall. She states she is still eating and drinking okay. Pt is being sent home today and can f/u in my office if anything changes. Supervisory-Addendum Brief Verification & Attestation Participated in pt care: history, MDM, physical Personally performed: exam, history, MDM, supervision of care Care discussed with: Medical Student Procedures: n/a Verification and Attestation of Medical Student E/M Service A medical student performed and documented this service. I then reviewed and ve rified all information documented by the medical student and made modifications to such information, when appropriate. I personally performed a physical exam, medical decision making and then discussed any differences between the notes and made revisions as necessary to create one note. Greta Spangler , 06/10/21 , 11:20 YARA CALLAWAY MED STUDENT Jun 08, 2021 10:46 GRETA SPANGLER DO Jun 10, 2021 11:15
--- NOTE | 2021-06-08 12:52 | Cardiology Progress Note ---
Progress Note-Cardiology Events since last exam Date Seen by Provider: Jun 08, 2021 Time Seen by Provider: 12:51 Events since last exam I am following her due to heart failure. She was sitting up in a chair eating lunch. Yesterday I gave her a dose of intravenous Lasix and her peripheral edema is unchanged. She still has a fair amount of dyspnea on exertion. She denies chest discomfort, palpitations, or syncope. Certain portions of this document may have been dictated utilizing voice recognition technology. Inherent to this technology, typographical and grammatical errors may exist. As much as I am diligent to identify and correct these mistakes, some errors may remain in the document. Vitals Last set of Vitals Signs Vital Signs 06/08/21 06/08/21 06/08/21 07:16 08:00 09:00 Temp 36.8 Pulse 83 Resp 18 B/P (MAP) 120/57 (78) Pulse Ox 88 O2 Delivery Nasal Cannula O2 Flow Rate 1.00 Labs Labs Laboratory Tests 06/08/21 06:45 Exam Vital Signs Vital Signs Date Time Temp Pulse Resp B/P (MAP) Pulse Ox O2 Delivery O2 Flow Rate FiO2 06/08/21 09:00 Nasal Cannula 1.00 06/08/21 08:00 88 06/08/21 07:16 36.8 83 18 120/57 (78) Physical Exam General: Alert. No acute distress. Eye: No xanthelasma. HENT: Normocephalic. Neck: Jugular venous pressure does not appear elevated. Respiratory: Lungs are clear to auscultation. Respirations are non-labored. Breath sounds are equal. Symmetrical chest wall expansion. Cardiovascular: Normal rate. Regular rhythm. 2/6 systolic ejection murmur. No gallop. 1-2+ bilateral pretibial edema. Gastrointestinal: Soft. Normal bowel sounds. Skin: Warm. Dry. Neurologic: Alert and oriented to person, place, time. Cranial nerves 3-11 grossly intact. Psychiatric: Cooperative. Appropriate mood & affect. Labs Laboratory Tests Test 06/08/21 06:45 Range/Units Sodium Level 140 135-145 MMOL/L Potassium Level 3.3 L 3.6-5.0 MMOL/L Chloride Level 98 98-107 MMOL/L Carbon Dioxide Level 32 21-32 MMOL/L Anion Gap 10 5-14 MMOL/L Blood Urea Nitrogen 26 H 7-18 MG/DL Creatinine 0.78 0.60-1.30 MG/DL Estimat Glomerular Filtration Rate 71 BUN/Creatinine Ratio 33 Glucose Level 102 70-105 MG/DL Calcium Level 8.2 L 8.5-10.1 MG/DL Diagnosis/Problems Diagnosis/Problems (1) Chronic heart failure with preserved ejection fraction (HFpEF) Assessment & Plan: Her peripheral edema is chronic and persists here in the hospital. I would just recommend that she continue to use compression stockings and take low-dose oral diuretic. She had no change with another dose of IV Lasix on 06/07. Continue oral Lasix. (2) Paroxysmal atrial fibrillation Assessment & Plan: She has been maintaining sinus rhythm as an outpatient on no antiarrhythmic drug. We will continue diltiazem for rate control in the event she has recurrent atrial fibrillation and apixaban for stroke prophylaxis. (3) Primary hypertension Assessment & Plan: Blood pressures have been intermittently elevated but continue to improve since increasing diltiazem and starting losartan. (4) Mixed hyperlipidemia Assessment & Plan: Continue statin medication. (5) Atherosclerosis of both carotid arteries Assessment & Plan: She is now status post right carotid endarterectomy. The site is healing well. She is on aspirin and statin medication. We may want to discontinue the aspirin in 1 month since she takes apixaban for the atrial fibrillation. This will help reduce the risk of hemorrhagic side effects in an octogenarian. (6) Mitral regurgitation Assessment & Plan: Her most recent echocardiogram from August 2020 only shows mild mitral regurgitation. (7) Pulmonary hypertension Assessment & Plan: This is been mild in the past and is probably related to her advanced age and chronic heart failure. JAIRON MORRISSEY JR, MD Jun 08, 2021 12:52
[2021-06-08] MEDS: DOCUSATE SODIUM 100 MG (COLACE) CAP PO SCH (19:15)
[2021-06-08 20:22] VITALS: BP 117/60
[2021-06-08] MEDS: LACTOBACILLUS ACIDOPHILUS (PROBIOTIC) CAPSULE PO SCH (21:05)
[2021-06-08] MEDS: GABAPENTIN 100 MG (NEURONTIN) CAP PO SCH (21:06)
[2021-06-08] MEDS: ASPIRIN E.C. 81 MG (ECOTRIN) TAB PO SCH (21:06)
[2021-06-08] MEDS: AtorvaSTATin TABLET 10 MG TABLET PO SCH (21:06)
[2021-06-09 04:56] LABS: BASOPHILS % (AUTO) 0 % (0-10); EOSINOPHILS % (AUTO) 0 % (0-10); HEMATOCRIT 29 % (35-52); HEMOGLOBIN 9.6 g/dL (11.5-16.0); LYMPHOCYTES # (AUTO) 0.9 10^3/uL (1.0-4.0); LYMPHOCYTES % (AUTO) 5 % (12-44); MEAN CORPUSCULAR HEMOGLOBIN 31 pg (25-34); MEAN CORPUSCULAR HGB CONC 33 g/dL (32-36); MEAN CORPUSCULAR VOLUME 94 fL (80-99); MEAN PLATELET VOLUME 8.8 fL (9.0-12.2); MONOCYTES # (AUTO) 1.1 10^3/uL (0.0-1.0); MONOCYTES % (AUTO) 6 % (0-12); NEUTROPHILS # (AUTO) 16.3 10^3/uL (1.8-7.8); NEUTROPHILS % (AUTO) 88 % (42-75); PLATELET COUNT 305 10^3/uL (130-400); WHITE BLOOD COUNT 18.5 10^3/uL (4.3-11.0)
[2021-06-09 05:10] LABS: ALBUMIN 3.1 GM/DL (3.2-4.5); POTASSIUM 3.8 MMOL/L (3.6-5.0)
[2021-06-09 05:12] LABS: CALCIUM 8.3 MG/DL (8.5-10.1)
[2021-06-09 05:13] LABS: TOTAL PROTEIN 5.6 GM/DL (6.4-8.2)
[2021-06-09 05:14] LABS: BILIRUBIN,TOTAL 0.8 MG/DL (0.1-1.0)
[2021-06-09 05:16] LABS: CREATININE SERUM 0.83 MG/DL (0.60-1.30)
[2021-06-09 05:58] LABS: BURR CELLS SLIGHT; ELLIPT/OVALOCYTES SLIGHT; LYMPHOCYTES % (MANUAL) 3 %; MONOCYTES % (MANUAL) 3 %; NEUTROPHILS % (MANUAL) 94 %
[2021-06-09] MEDS: methylPREDNISolone 40 MG/ML (Solu-MEDROL) VIAL IV SCH (06:08)
[2021-06-09] MEDS: LEVOTHYROXINE 88 MCG (LEVOTHORID) TAB PO SCH (06:08)
[2021-06-09] MEDS: CYANOCOBALAMIN 1,000 MCG (VITAMIN B-12) TABLET PO SCH (06:08)
[2021-06-09] MEDS: CATHETER FLUSH 10 ML SYR IV SCH ×3 (06:08→21:38)
[2021-06-09 08:00] VITALS: BP 128/61
[2021-06-09] MEDS: guaiFENesin (MUCINEX) 600 MG TAB PO SCH ×2 (08:13→21:34)
[2021-06-09] MEDS: KCL 8 MEQ (MICRO K) TABLET PO SCH ×2 (08:13→17:50)
[2021-06-09] MEDS: FUROSEMIDE 40 MG (LASIX) TAB PO SCH (08:13)
[2021-06-09] MEDS: SENNA W/DOCUSATE (SENOKOT S) TABLET PO SCH ×2 (08:14→21:34)
[2021-06-09] MEDS: polyethylene glycoL POWDER 17 GM (MIRALAX) PACK PO SCH ×2 (08:14→21:37)
[2021-06-09] MEDS: BENZONATATE 100 MG (TESSALON) CAPSULE PO SCH ×3 (08:14→21:33)
[2021-06-09] MEDS: LORATADINE (CLARITIN) 10 MG TAB PO SCH (08:14)
[2021-06-09] MEDS: VITAMIN D3 25 MCG (1,000 UNITS) TABLET PO SCH ×2 (08:14→21:34)
[2021-06-09] MEDS: APIXABAN 5 MG (ELIQUIS) TABLET PO SCH ×2 (08:14→21:34)
[2021-06-09] MEDS: doxAzosin 1 MG (CARDURA) TAB PO SCH ×2 (08:14→21:33)
[2021-06-09] MEDS: ARTIFICAL TEARS 0.4 ML UNIT DOSE (REFRESH PLUS) OU SCH ×3 (08:14→21:35)
[2021-06-09] MEDS: LOSARTAN 25 MG (COZAAR) TAB PO SCH (08:14)
[2021-06-09] MEDS: RT-ALBUTEROL/IPRATROPIUM 3 ML (DUONEB) VIAL INH SCH ×3 (08:32→21:12)
--- NOTE | 2021-06-09 09:26 | Progress Note ---
Subjective Date Seen by a Provider: Jun 09, 2021 Time Seen by a Provider: 09:24 Subjective/Events-last exam Fwup right carotid endarterectomy, HTN, atrial fibrillation, edema, scia cipriano/neuropathy, atelectesis/cough. Still on oxygen. Still with cough. Objective Exam Vital Signs Date Time Temp Pulse Resp B/P (MAP) Pulse Ox O2 Delivery O2 Flow Rate FiO2 06/09/21 08:34 95 Nasal Cannula 1.00 06/09/21 08:00 36.2 72 16 128/61 (83) 93 Nasal Cannula 1.00 06/08/21 21:38 92 Room Air 1.00 06/08/21 20:22 37.2 87 20 117/60 (79) 92 Room Air 06/08/21 19:39 94 Nasal Cannula 1.00 Capillary Refill : General Appearance: No Apparent Distress Respiratory: Crackles, Decreased Breath Sounds Cardiovascular: Regular Rate, Rhythm, Systolic Murmur Gastrointestinal: normal bowel sounds, non tender, soft Extremity: Non Tender, No Calf Tenderness, Pedal Edema Neurologic/Psychiatric: Alert, Oriented x3 Results Lab Laboratory Tests 06/09/21 04:45: White Blood Count 18.5H, Red Blood Count 3.09L, Hemoglobin 9.6#L, Hematocrit 29L , Mean Corpuscular Volume 94, Mean Corpuscular Hemoglobin 31, Mean Corpuscular Hemoglobin Concent 33, Red Cell Distribution Width 12.9, Platelet Count 305, Mean Platelet Volume 8.8L, Immature Granulocyte % (Auto) 1, Neutrophils (%) (Auto) 88H, Lymphocytes (%) (Auto) 5L, Monocytes (%) (Auto) 6, Eosinophils (%) (Auto) 0, Basophils (%) (Auto) 0, Neutrophils # (Auto) 16.3H, Lymphocytes # (Auto) 0.9L, Monocytes # (Auto) 1.1H, Eosinophils # (Auto) 0.0, Basophils # (Auto) 0.0, Immature Granulocyte # (Auto) 0.2H, Neutrophils % (Manual) 94, Lymphocytes % (Manual) 3, Monocytes % (Manual) 3, [place] Cells SLIGHT, Elliptocytes SLIGHT, Sodium Level 136, Potassium Level 3.8, Chloride Level 96L, Carbon Dioxide Level 31, Anion Gap 9, Blood Urea Nitrogen 31H, Creatinine 0.83, Estimat Glomerular Filtration Rate 66, BUN/Creatinine Ratio 37, Glucose Level 112H, Calcium Level 8.3L, Corrected Calcium 9.0, Total Bilirubin 0.8, Aspartate Amino Transf (AST/SGOT) 22, Alanine Aminotransferase (ALT/SGPT) 27, Alkaline Phosphatase 52, Total Protein 5.6L, Albumin 3.1L Microbiology 06/02/21 Gram Stain - Final, Complete 06/02/21 Sputum Culture - Final, Complete Usual upper respiratory arti 06/02/21 Blood Culture - Final, Complete Staph, Coag Neg ([employer]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 S/P right carotid endarterectomy--healing well 2. Hypertension--stable 3. Neuropathy/Sciatica--on gabapentin 4. Bibasilar Atelectesis/Cough--down to 1L NC--will attempt weaning during day today 5. Edema--on lasix daily 6. Hx of Atrial Fibrillation--on eliquis and cardizem 7. Weakness--doing well with PT/OT 8. Hypokalemia--oral K dose increased 9. Leukocytosis--may be from solumedrol but will recheck UA and repeat CXR Clinical Quality Measures Admission Status Admission Dx 1. Right Carotid Artery Stenosis--S/P right carotid endarterectomy--wound healing well 2. History of Atrial Fibrillation with RVR--back on eliquis and cardizem, appears amiodarone has been discontinued on transfer, cardiology consulted 3. Hypertension--on cardizem and doxazosin 4. Post-op Edema--will given lasix and potassium in AM, continue compression hose 5. Bilateral Leg Neuropathy--add low dose gabapentin 6. Hypothyroidism--back on home thyroid dose I will follow along medically GENA GROSSMAN DO Jun 09, 2021 09:26
--- NOTE | 2021-06-09 09:51 | PM&R Progress Note ---
Subjective HPI/CC On Admission Date Seen by Provider: Jun 09, 2021 Time Seen by Provider: 10:00 Subjective/Events-last exam 06/09/21: Pt really anxious about going home. Pt really needs assisted living, but pt says she can't afford it. Weaning O2 Elevated WBC due to steroids of 18,000 Checked meds and labs 06/08/21: Patient doing well Ad angeline now Weaning O2 Abdominal hernia discussed Cough is better 06/07/2021: Patient feels pretty good Lungs improved Lasix will be given for Dr. Knutson Abdominal hernia after cough was noted we will consult Dr. Carroll 06/06/2021: Patient feels better Weaning down from continuous oxygen No major issues Lungs are still wheezy but improved Conferred with her PCP Dr. 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 causes the Robitussin to burn Discharge planned for but she is very hesitant and does not feel like she is ready to go Home O2 evaluation will be initiated 06/03/2021: Pt doing a lot better Coughing a bit Not sleeping too well due to steroids Bowels moved after MiraLax Coarse breath sounds on the lung but much improved 06/02/2021: Pt working with PT Covid and flu swabs negative Cefdinir maintained Steroids will be initiated after midline placed We will add cough suppressant 06/01/2021: Patient doing better today Bronchitis treatment tolerated We will give 1 dose of Solu-Medrol in 80mg IM since she does not have IV access Cough is improved 05/31/2021: Patient doing a lot better today Very frail status Cough is productive now Bacterial bronchitis will be initiating antibiotic 05/30/2021: Patient short of breath Oxygen maintained Fully Covid vaccinated with booster including flu Checked labs completed septic work-up and chest x-ray all were negative 05/29/2021: Pt doing okay Had some nausea, received Zofran Biofreeze will be from her home supply Cough is noted but lungs are clear Cardiology will be consulted Review of Systems General: Fatigue, Malaise Pulmonary: Dyspnea Objective Exam Vital Signs Vital Signs Date Time Temp Pulse Resp B/P (MAP) Pulse Ox O2 Delivery O2 Flow Rate FiO2 06/09/21 21:37 96 Room Air 06/09/21 20:00 36.8 74 18 116/58 (77) 06/09/21 14:10 0.00 Capillary Refill : General Appearance: No Apparent Distress, Anxious, Chronically ill HEENT: PERRL/EOMI, Normal ENT Inspection, Pharynx Normal Neck: Full Range of Motion, Normal Inspection, Non Tender, Supple, Carotid Bruit Respiratory: No Accessory Muscle Use, No Respiratory Distress, Crackles, Decreased Breath Sounds Cardiovascular: Regular Rate, Rhythm, Normal Peripheral Pulses, Systolic Murmur Gastrointestinal: Normal Bowel Sounds, No Organomegaly, No Pulsatile Mass, Soft, Other (hernia) Rectal: Deferred Back: Normal Inspection, No CVA Tenderness, No Vertebral Tenderness Extremity: Non Tender, No Calf Tenderness, Pedal Edema Neurologic/Psychiatric: Alert, Oriented x3, No Motor/Sensory Deficits, Normal Mood/Affect, fiberglasser II-XII Norm as Tested Skin: Normal Color, Warm/Dry, Other (Right carotid endarterectomy incision line) Lymphatic: No Adenopathy Results/Procedures Lab Patient resulted labs reviewed. FIM Transfers Therapy Code Descriptions/Definitions Functional [place] Measure: 0=Not Assessed/NA 4=Minimal Assistance 1=Total Assistance 5=Supervision or Setup 2=Maximal Assistance 6=Modified [place] 3=Moderate Assistance 7=Complete IndependenceSCALE: Activities may be completed with or without assistive devices. 3-Qalmgwatoo-zkwuorf completes the activity by him/herself with no assistance from a helper. 5-Set-up or Clean-up Assistance-helper sets up or cleans up; patient completes activity. [place] assists only prior to or following the activity. 4-Supervision or Touching Assistance-helper provides verbal cues and/or touching/steadying and/or contact guard assistance as patient completes activity. Assistance may be provided throughout the activity or intermittently. 3-Partial/Moderate Assistance-helper does LESS THAN HALF the effort. [place] lifts, holds or supports trunk or limbs, but provides less than half the effort. 2-Substantial/Maximal Assistance-helper does MORE THAN HALF the effort. [place] lifts or holds trunk or limbs and provides more than half the effort. 1-Cmyxfrldr-mtfkeq does ALL the effort. Patient does none of the effort to complete the activity. Or, the assistance of 2 or more helpers is required for the patient to complete the activity. If activity was not attempted, code reason: 7-Patient Refused. 9-Not Applicable-not attempted and the patient did not perform the activity before the current illness, exacerbation or injury. 10-Not Attempted due to Environmental Limitations-(lack of equipment, weather restraints, etc.). 88-Not Attempted due to Medical Conditions or Safety Concerns. Roll Left to Right (QC): 6 Sit to Lying (QC): 6 Sit to Stand (QC): 6 Chair/Pvv-pn-Izlzr Xfer(QC): 6 Car Transfer (QC): 5 Gait Training Does the Patient Walk?: Yes Distance: 400'x2 Walk 10 feet (QC): 6 Walk 50 ft with 2 Turns(QC): 6 Walk 150 ft (QC): 6 Walking 10ft/uneven surface-QC: 5 Gait Persons Needed: 0 Gait Assistive Device: FWW Wheelchair Training Wheel 50 ft with 2 turns (QC): 9 Wheel 150 ft (QC): 9 Stair Training Stair Training: Handrails/: 1 handrail #of Steps: 12 1 Step (curb) (QC): 4 4 Steps (QC): 4 12 Steps (QC): 4 Stairs: Pattern: Reciprocal Balance Picking up an Object (QC): 5 ADL-Treatment Eating (QC): 6 Oral Hygiene (QC): 6 Bathing Location: L Arm, R Arm, L Upper Leg, R Upper Leg, L Lower Leg (including foot), R Lower Leg (including foot), Chest, Abdomen, Buttocks, Perineal Area Shower/Bathe Self (QC): 5 Upper Body Dressing (QC): 6 Lower Body Dressing (QC): 6 On/Off Footwear (QC): 6 Toileting Hygiene (QC): 6 Toilet Transfer (QC): 6 Assessment/Plan Assessment and Plan Assess & Plan/Chief Complaint Assessment: Debility with weakness Right carotid endarterectomy AF w/RVR s/p cardioversion CHF diastolic type BCC hx Hypoxia uses oxygen at night chronically now she is on continuous Fall risk Impulsive and high risk for falls Acute bacterial bronchitis initiate antibiotic on 05/31/2021 Acute exacerbation of COPD placed on steroids on 06/01/2021 Plan: Home meds Cardiology consult Inpatient rehab protocol 05/29/2021: Nausea treatment Rehab protocol 05/30/2021: Oxygen supplementation Septic work-up 05/31/2021: Antibiotic for bacterial bronchitis 06/01/2021: Supportive care Diuresis Bronchitis treatment 06/02/2021: Supportive care IV steroids 06/03/2021: IV steroids Antibiotic 06/04/2021: Patient resistant of discharge tomorrow Wean O2 06/05/2021: Moved to independent room Try to build confidence Oxygen wean 06/06/2021: Supportive care Wean oxygen Degree steroids 06/07/2021: Dr. Carroll consult for abdominal hernia cough Lasix per Dr. Knutson 06/08/21: Monitor cough O2 wean 06/09/21: Wean O2 DC home (1) Chronic heart failure with preserved ejection fraction (HFpEF) Assessment & Plan: Her peripheral edema is chronic and persists here in the hospital. I would just recommend that she continue to use compression stockings and take low-dose oral diuretic. She had no change with another dose of IV Lasix on 06/07. Continue oral Lasix. (2) Paroxysmal atrial fibrillation Assessment & Plan: She has been maintaining sinus rhythm as an outpatient on no antiarrhythmic drug. We will continue diltiazem for rate control in the event she has recurrent atrial fibrillation and apixaban for stroke prophylaxis. (3) Primary hypertension Assessment & Plan: Blood pressures have been intermittently elevated but continue to improve since increasing diltiazem and starting losartan. (4) Mixed hyperlipidemia Assessment & Plan: Continue statin medication. (5) Atherosclerosis of both carotid arteries Assessment & Plan: She is now status post right carotid endarterectomy. The site is healing well. She is on aspirin and statin medication. We may want to discontinue the aspirin in 1 month since she takes apixaban for the atrial fibrillation. This will help reduce the risk of hemorrhagic side effects in an octogenarian. (6) Mitral regurgitation Assessment & Plan: Her most recent echocardiogram from August 2020 only shows mild mitral regurgitation. (7) Pulmonary hypertension Assessment & Plan: This is been mild in the past and is probably related to her advanced age and chronic heart failure. ELVA BEAUCHAMP DO Jun 09, 2021 09:51
--- NOTE | 2021-06-09 10:03 | Physical Therapy Daily Note ---
PT Daily Note-Current Subjective Pt. up in recliner. Dr Poole enters for visit. Pt. on 1 L O2 with sats 98%. requests trial of activity monitoring O2 to titrate off O2. Pt. continues with much anxiety expressing that no one will be there to help her get groceries etc. SW notified of pts concerns Pain Location: No Pain Reported Mental Status Patient Orientation: Person, Place, Situation Attachments: Oxygen (titrated off during Rx) Transfers SCALE: Activities may be completed with or without assistive devices. 6-Wjmixscxzs-oglrffx completes the activity by him/herself with no assistance from a helper. 5-Set-up or Clean-up Assistance-helper sets up or cleans up; patient completes activity. [place] assists only prior to or following the activity. 4-Supervision or Touching Assistance-helper provides verbal cues and/or touching/steadying and/or contact guard assistance as patient completes activity. Assistance may be provided throughout the activity or intermittently. 3-Partial/Moderate Assistance-helper does LESS THAN HALF the effort. [place] lifts, holds or supports trunk or limbs, but provides less than half the effort. 2-Substantial/Maximal Assistance-helper does MORE THAN HALF the effort. [place] lifts or holds trunk or limbs and provides more than half the effort. 0-Rkofoneue-sbaucu does ALL the effort. Patient does none of the effort to complete the activity. Or, the assistance of 2 or more helpers is required for the patient to complete the activity. If activity was not attempted, code reason: 7-Patient Refused. 9-Not Applicable-not attempted and the patient did not perform the activity before the current illness, exacerbation or injury. 10-Not Attempted due to Environmental Limitations-(lack of equipment, weather restraints, etc.). 88-Not Attempted due to Medical Conditions or Safety Concerns. Roll Left & Right (QC): 6 Sit to Lying (QC): 6 Lying to Sitting/Side of Bed(Q: 6 Sit to Stand (QC): 6 Chair/Vda-br-Zpvjb Xfer(QC): 6 Toilet Transfer (QC): 6 Car Transfer (QC): 6 Weight Bearing 10# lifting restriction and no squatting Gait Training Does the Patient Walk?: Yes Walk 10 feet (QC): 6 Walk 50 ft with 2 Turns(QC): 6 Walk 150 ft (QC): 6 Walking 10ft/uneven surface-QC: 6 Gait Persons Needed: 0 Gait Assistive Device: FWW pt. ambulates longer dist using FWW, short dist in room to bthr and back without AD. all with good balance etc Stair Training Stair Training: Handrails/: 1 handrail #of Steps: 12 1 Step (curb) (QC): 6 4 Steps (QC): 6 12 Steps (QC): 6 Stairs: Pattern: Reciprocal Balance Picking up an Object (QC): 6 Special Test Comments pts O2 was monitored at 1L with activity titrating down to 0L O2 with activity with sats steady >90%. pt. in chair no O2 sats 97% after rx. Exercises Seated Therapy Exercises: Ankle pumps, Sit to stand, Long arc quads, Hip flexion, Hip abd/add Seated Reps: 12 NuStep Minutes: 8 NuStep Workload: 3 Treatments QCs completed, gait, TRFs, etc, successfully titrated off o2 at this time Assessment Current Status: Good Progress meets goals, pt. very anxious and concerned about DC PT Short Term Goals Short Term Goals Time Frame: Jun 04, 2021 Roll Left & Right: 6 Sit to lyin Lying to sitting on side of be: 6 Sit to stand: 4 (SBA) Chair/wwz-tn-dwitl transfer: 4 (SBA) Walk 10 feet: 4 (SBA) Walk 50 feet with two turns: 4 (SBA) Walk 150 feet: 4 (SBA) 1 step (curb): 4 (SBA) 4 steps: 4 (SBA) PT Editor Publications Goals Editor Publications Goals PT Editor Publications Goals Time Frame: Jun 18, 2021 Roll Left & Right (QC): 6 Sit to Lying (QC): 6 Lying-Sitting on Side/Bed(QC): 6 Sit to Stand (QC): 6 Chair/Dpe-ya-Rwdlm Xfer(QC): 6 Toilet Transfer (QC): 6 Car Transfer (QC): 6 Does the Patient Walk: Yes Walk 10 feet (QC): 6 Walk 50ft with 2 Turns (QC): 6 Walk 150 ft (QC): 6 Walking 10ft on Uneven Surface: 6 1 Step (curb) (QC): 4 (SBA) 4 Steps (QC): 4 (SBA) 12 Steps (QC): 4 (SBA) Picking up an Object (QC): 6 Wheel 50 feet with 2 turns (QC: 9 Wheel 150 feet: 9 PT Plan Treatment/Plan Treatment Plan: Continue Plan of Care Treatment Plan: Bed Mobility, Education, Functional Activity Samy, Functional Strength, Group Therapy, Gait, Safety, Therapeutic Exercise, Transfers Treatment Duration: Jun 18, 2021 Frequency: At least 5 of 7 days/Wk (IRF) Estimated Hrs Per Day: 1.5 hours per day Patient and/or Family Agrees t: Yes Safety Risks/Education Patient Education: Gait Training, Transfer Techniques, Steps, Correct Positioning, Disease Process, Safety Issues Teaching Recipient: Patient Teaching Methods: Demonstration, Discussion Response to Teaching: Verbalize Understanding, Return Demonstration, Reinforcement Needed Time/GCodes Time In: 900 Time Out: 1000 Total Billed Treatment Time: 60 Total Billed Treatment 1,FA35m,GT15m,EX10m DARION SANTIAGO [employer] OPERATOR Jun 09, 2021 10:03
--- NOTE | 2021-06-09 11:25 | Occupational Ther Daily Note ---
OT Current Status-Daily Note Subjective Pt in recliner. Pt agreeable to OT tx. Mental Status/Objective Patient Orientation: Person, Place, Time, Situation Attachments: IV ADL-Treatment Therapy Code Descriptions/Definitions Functional [place] Measure: 0=Not Assessed/NA 4=Minimal Assistance 1=Total Assistance 5=Supervision or Setup 2=Maximal Assistance 6=Modified [place] 3=Moderate Assistance 7=Complete IndependenceSCALE: Activities may be completed with or without assistive devices. 9-Dpnearjeqy-ivfqcsz completes the activity by him/herself with no assistance from a helper. 5-Set-up or Clean-up Assistance-helper sets up or cleans up; patient completes activity. [place] assists only prior to or following the activity. 4-Supervision or Touching Assistance-helper provides verbal cues and/or touching/steadying and/or contact guard assistance as patient completes activity. Assistance may be provided throughout the activity or intermittently. 3-Partial/Moderate Assistance-helper does LESS THAN HALF the effort. [place] lifts, holds or supports trunk or limbs, but provides less than half the effort. 2-Substantial/Maximal Assistance-helper does MORE THAN HALF the effort. [place] lifts or holds trunk or limbs and provides more than half the effort. 3-Drjzxndme-kcgkag does ALL the effort. Patient does none of the effort to complete the activity. Or, the assistance of 2 or more helpers is required for the patient to complete the activity. If activity was not attempted, code reason: 7-Patient Refused. 9-Not Applicable-not attempted and the patient did not perform the activity before the current illness, exacerbation or injury. 10-Not Attempted due to Environmental Limitations-(lack of equipment, weather restraints, etc.). 88-Not Attempted due to Medical Conditions or Safety Concerns. Eating (QC): 6 Oral Hygiene (QC): 6 Bathing Location: L Arm, R Arm, L Upper Leg, R Upper Leg, L Lower Leg (including foot), R Lower Leg (including foot), Chest, Abdomen, Buttocks, Perineal Area Shower/Bathe Self (QC): 6 Upper Body Dressing (QC): 6 Lower Body Dressing (QC): 6 On/Off Footwear: 6 Toileting Hygiene (QC): 6 Toilet Transfer (QC): 6 Other Treatment Pt in recliner. Pt transitioned to table in room to grab clothing, FWW. Pt mcleod sitioned to bathroom, FWW, completed toileting, transitioned to SC, doffed shirt, pants, underwear and shoes independently. Pt completed showering, donned shirt, underwear and pants, transitioned to sink to brush her hair, transitioned back to recliner to don socks, FWW. Pts O2 saturation after taking a shower was 91-92% and after donning socks was 95%. Pt in recliner, call light in reach and all needs met. Education OT Patient Education: Correct positioning, Energy conservation, Modified ADL techniques, Progress toward Goal/Update tx plan, Purpose of tx/functional activities, Rehab process Teaching Recipient: Patient Teaching Methods: Discussion Response to Teaching: Verbalize Understanding OT Short Term Goals Short Term Goals Time Frame: Jun 04, 2021 Shower/bathe self: 5 Lower body dressin Putting on/taking off footwear: 5 OT Fpc Goals Pony Ride Attendant Goals Time Frame: Jun 20, 2021 Eating (QC): 6 (met) Oral Hygiene (QC): 6 (met) Toileting Hygiene (QC): 6 (met) Shower/Bathe Self (QC): 6 (met) Upper Body Dressing (QC): 6 (met) Lower Body Dressing (QC): 6 (met) On/Off Footwear (QC): 6 (met) Additional Goals: 1-Demonstrate ADL Tasks, 2-Verbalize Understanding, 3- ImproveStrength/Samy 1=Demonstrate adherence to instructed precautions during ADL tasks. 2=Patient will verbalize/demonstrate understanding of assistive devices/modifications for ADL. 3=Patient will improve strength/tolerance for activity to enable patient to perform ADL's. OT Education/Plan Problem List/Assessment Assessment: Decreased Activ Tolerance, Decreased UE Strength, Impaired Funct Balance Discharge Recommendations Plan/Recommendations: Continue POC Treatment Plan/Plan of Care Patient would benefit from OT for education, treatment and training to promote independence in ADL's, mobility, safety and/or upper extremity function for ADL's. Plan of Care: ADL Retraining, Functional Mobility, Group Exercise/Act as Ind, UE Funct Exercise/Act Treatment Duration: Jun 20, 2021 Frequency: At least 5 of 7 days/Wk (IRF) Estimated Hrs Per Day: 1.5 hours per day Agreement: Yes Rehab Potential: Fair Time/GCodes Start Time: 10:15 Stop Time: 11:15 Total Time Billed (hr/min): 60 Billed Treatment Time 1, ADL 4 (60) BERTRAM SCHULTZ OT Jun 09, 2021 11:25
--- NOTE | 2021-06-09 11:41 | Diagnostic Imaging Report ---
INDICATION: Lower respiratory infection PA and lateral chest There is mild kyphosis of the thoracic spine. There is a loop recorder projecting over left lower chest. Heart size and pulmonary vascularity are normal. Lungs are clear. There are no effusions or pneumothoraces. IMPRESSION: No acute abnormalities in the chest. Dictated by: Dictated on workstation # [id number]
--- NOTE | 2021-06-09 13:34 | Physical Therapy Daily Note ---
PT Daily Note-Current Subjective Pt. agrees to Rx, still feeling well, comments again on what she believes is a hernia acquired from coughing so much Pain Location: No Pain Reported Mental Status Patient Orientation: Normal For Age Transfers SCALE: Activities may be completed with or without assistive devices. 5-Uttyxzsklb-fcygefr completes the activity by him/herself with no assistance from a helper. 5-Set-up or Clean-up Assistance-helper sets up or cleans up; patient completes activity. [place] assists only prior to or following the activity. 4-Supervision or Touching Assistance-helper provides verbal cues and/or touching/steadying and/or contact guard assistance as patient completes activity. Assistance may be provided throughout the activity or intermittently. 3-Partial/Moderate Assistance-helper does LESS THAN HALF the effort. [place] lifts, holds or supports trunk or limbs, but provides less than half the effort. 2-Substantial/Maximal Assistance-helper does MORE THAN HALF the effort. [place] lifts or holds trunk or limbs and provides more than half the effort. 9-Qrttvassy-ylvabx does ALL the effort. Patient does none of the effort to complete the activity. Or, the assistance of 2 or more helpers is required for the patient to complete the activity. If activity was not attempted, code reason: 7-Patient Refused. 9-Not Applicable-not attempted and the patient did not perform the activity before the current illness, exacerbation or injury. 10-Not Attempted due to Environmental Limitations-(lack of equipment, weather restraints, etc.). 88-Not Attempted due to Medical Conditions or Safety Concerns. all Mod I Weight Bearing 10# lifting restriction and no squatting Gait Training Does the Patient Walk?: Yes Gait Assistive Device: FWW 200ft, 100x2, FWW rests to check O2 sats... steady > 90% each trial Exercises Seated Therapy Exercises: Ankle pumps, Sit to stand, Long arc quads, Hip flexion, Hip abd/add Seated Reps: 15 Assessment Current Status: Good Progress O2 sats on room air for all activity >90% consistently today PT Short Term Goals Short Term Goals Time Frame: Jun 04, 2021 Roll Left & Right: 6 Sit to lyin Lying to sitting on side of be: 6 Sit to stand: 4 (SBA) Chair/xqf-af-wbbmx transfer: 4 (SBA) Walk 10 feet: 4 (SBA) Walk 50 feet with two turns: 4 (SBA) Walk 150 feet: 4 (SBA) 1 step (curb): 4 (SBA) 4 steps: 4 (SBA) PT Nursing Home Goals Nursing Home Goals PT Nursing Home Goals Time Frame: Jun 18, 2021 Roll Left & Right (QC): 6 Sit to Lying (QC): 6 Lying-Sitting on Side/Bed(QC): 6 Sit to Stand (QC): 6 Chair/Pur-xg-Cjinv Xfer(QC): 6 Toilet Transfer (QC): 6 Car Transfer (QC): 6 Does the Patient Walk: Yes Walk 10 feet (QC): 6 Walk 50ft with 2 Turns (QC): 6 Walk 150 ft (QC): 6 Walking 10ft on Uneven Surface: 6 1 Step (curb) (QC): 4 (SBA) 4 Steps (QC): 4 (SBA) 12 Steps (QC): 4 (SBA) Picking up an Object (QC): 6 Wheel 50 feet with 2 turns (QC: 9 Wheel 150 feet: 9 PT Plan Treatment/Plan Treatment Plan: Continue Plan of Care Treatment Plan: Bed Mobility, Education, Functional Activity Samy, Functional Strength, Group Therapy, Gait, Safety, Therapeutic Exercise, Transfers Treatment Duration: Jun 18, 2021 Frequency: At least 5 of 7 days/Wk (IRF) Estimated Hrs Per Day: 1.5 hours per day Patient and/or Family Agrees t: Yes Safety Risks/Education Patient Education: Gait Training, Reviewed Precautions, Correct Positioning, Disease Process, Safety Issues Time/GCodes Time In: 1300 Time Out: 1330 Total Billed Treatment Time: 30 Total Billed Treatment 1,GT30m DARION SANTIAGO THEATER SET PRODUCTION DESIGNER Jun 09, 2021 13:34
--- NOTE | 2021-06-09 14:06 | Occupational Ther Daily Note ---
OT Current Status-Daily Note Subjective Pt in recliner. Pt agreeable to OT tx. Mental Status/Objective Patient Orientation: Person, Place, Time, Situation Attachments: IV ADL-Treatment Therapy Code Descriptions/Definitions Functional [place] Measure: 0=Not Assessed/NA 4=Minimal Assistance 1=Total Assistance 5=Supervision or Setup 2=Maximal Assistance 6=Modified [place] 3=Moderate Assistance 7=Complete IndependenceSCALE: Activities may be completed with or without assistive devices. 1-Tsrojehpuo-zmatyfn completes the activity by him/herself with no assistance from a helper. 5-Set-up or Clean-up Assistance-helper sets up or cleans up; patient completes activity. [place] assists only prior to or following the activity. 4-Supervision or Touching Assistance-helper provides verbal cues and/or touching/steadying and/or contact guard assistance as patient completes activity. Assistance may be provided throughout the activity or intermittently. 3-Partial/Moderate Assistance-helper does LESS THAN HALF the effort. [place] lifts, holds or supports trunk or limbs, but provides less than half the effort. 2-Substantial/Maximal Assistance-helper does MORE THAN HALF the effort. [place] lifts or holds trunk or limbs and provides more than half the effort. 0-Wmroxzmrp-gjymdt does ALL the effort. Patient does none of the effort to complete the activity. Or, the assistance of 2 or more helpers is required for the patient to complete the activity. If activity was not attempted, code reason: 7-Patient Refused. 9-Not Applicable-not attempted and the patient did not perform the activity before the current illness, exacerbation or injury. 10-Not Attempted due to Environmental Limitations-(lack of equipment, weather restraints, etc.). 88-Not Attempted due to Medical Conditions or Safety Concerns. Other Treatment Pt in recliner. Pt transitioned to therapy gym, FWW. Pt completed arm bike,15 watt, 10 minutes, no rest breaks, to work on BUE strengthening. Pt tossed rings onto targets while standing x3 rounds, using BUE. On last round of ring toss, Pt completed task without UE support in order to increase dynamic standing balance, no LOB noted. Pt transitioned back to [facility], FWW. Pt in recliner, call light in reach and all needs met. Education OT Patient Education: Energy conservation, Exercise program, Progress toward Goal/Update tx plan, Purpose of tx/functional activities, Rehab process Teaching Recipient: Patient Teaching Methods: Demonstration, Discussion Response to Teaching: Verbalize Understanding, Return Demonstration OT Short Term Goals Short Term Goals Time Frame: Jun 04, 2021 Shower/bathe self: 5 Lower body dressin Putting on/taking off footwear: 5 OT Law Professor Goals Fpc Goals Time Frame: Jun 20, 2021 Eating (QC): 6 (met) Oral Hygiene (QC): 6 (met) Toileting Hygiene (QC): 6 (met) Shower/Bathe Self (QC): 6 (met) Upper Body Dressing (QC): 6 (met) Lower Body Dressing (QC): 6 (met) On/Off Footwear (QC): 6 (met) Additional Goals: 1-Demonstrate ADL Tasks, 2-Verbalize Understanding, 3-Improve Strength/Samy 1=Demonstrate adherence to instructed precautions during ADL tasks. 2=Patient will verbalize/demonstrate understanding of assistive devices/modifications for ADL. 3=Patient will improve strength/tolerance for activity to enable patient to pe rform ADL's. OT Education/Plan Problem List/Assessment Assessment: Decreased Activ Tolerance, Decreased UE Strength Discharge Recommendations Plan/Recommendations: Continue POC Treatment Plan/Plan of Care Patient would benefit from OT for education, treatment and training to promote independence in ADL's, mobility, safety and/or upper extremity function for ADL's. Plan of Care: ADL Retraining, Functional Mobility, Group Exercise/Act as Ind, UE Funct Exercise/Act Treatment Duration: Jun 20, 2021 Frequency: At least 5 of 7 days/Wk (IRF) Estimated Hrs Per Day: 1.5 hours per day Agreement: Yes Rehab Potential: Fair Time/GCodes Start Time: 13:30 Stop Time: 14:00 Total Time Billed (hr/min): 30 Billed Treatment Time 1, EX (10), FA (20) BERTRAM SCHULTZ OT Jun 09, 2021 14:06
[2021-06-09] MEDS: RT--FLUTICASONE/SALMETEROL 113-14 (AIRDUO RespiCLICK) IH SCH (14:13)
[2021-06-09 17:42] LABS: BILIRUBIN,URINE NEGATIVE (NEGATIVE); CLARITY,URINE CLEAR; COLOR,URINE YELLOW; GLUCOSE, URINE (UA) NEGATIVE (NEGATIVE); KETONES,URINE NEGATIVE (NEGATIVE); LEUKOCYTE ESTERASE ,URINE NEGATIVE (NEGATIVE); NITRITE,URINE NEGATIVE (NEGATIVE); PH,URINE 6.5 (5-9); PROTEIN,URINE NEGATIVE (NEGATIVE)
[2021-06-09 17:49] LABS: BACTERIA,URINE NEGATIVE /HPF; SQUAMOUS EPITHELIAL CELL,UR RARE /HPF; WBC,URINE RARE /HPF
[2021-06-09 20:00] VITALS: BP 116/58
[2021-06-09] MEDS: LACTOBACILLUS ACIDOPHILUS (PROBIOTIC) CAPSULE PO SCH (21:33)
[2021-06-09] MEDS: ASPIRIN E.C. 81 MG (ECOTRIN) TAB PO SCH (21:33)
[2021-06-09] MEDS: GABAPENTIN 100 MG (NEURONTIN) CAP PO SCH (21:34)
[2021-06-09] MEDS: DOCUSATE SODIUM 100 MG (COLACE) CAP PO SCH (21:34)
[2021-06-09] MEDS: AtorvaSTATin TABLET 10 MG TABLET PO SCH (21:34)
--- NOTE | 2021-06-10 06:14 | PM&R Progress Note ---
Subjective HPI/CC On Admission Date Seen by Provider: Jun 10, 2021 Subjective/Events-last exam 06/09/21: Pt really anxious about going home. Pt really needs assisted living, but pt says she can't afford it. Weaning O2 Elevated WBC due to steroids of 18,000 Checked meds and labs 06/08/21: Patient doing well Ad angeline now Weaning O2 Abdominal hernia discussed Cough is better 06/07/2021: Patient feels pretty good Lungs improved Lasix will be given for Dr. Knutson Abdominal hernia after cough was noted we will consult Dr. Carroll 06/06/2021: Patient feels better Weaning down from continuous oxygen No major issues Lungs are still wheezy but improved Conferred with her PCP Dr. 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 causes the Robitussin to burn Discharge planned for but she is very hesitant and does not feel like she is ready to go Home O2 evaluation will be initiated 06/03/2021: Pt doing a lot better Coughing a bit Not sleeping too well due to steroids Bowels moved after MiraLax Coarse breath sounds on the lung but much improved 06/02/2021: Pt working with PT Covid and flu swabs negative Cefdinir maintained Steroids will be initiated after midline placed We will add cough suppressant 06/01/2021: Patient doing better today Bronchitis treatment tolerated We will give 1 dose of Solu-Medrol in 80mg IM since she does not have IV access Cough is improved 05/31/2021: Patient doing a lot better today Very frail status Cough is productive now Bacterial bronchitis will be initiating antibiotic 05/30/2021: Patient short of breath Oxygen maintained Fully Covid vaccinated with booster including flu Checked labs completed septic work-up and chest x-ray all were negative 05/29/2021: Pt doing okay Had some nausea, received Zofran Biofreeze will be from her home supply Cough is noted but lungs are clear Cardiology will be consulted Objective Exam Vital Signs Vital Signs Date Time Temp Pulse Resp B/P (MAP) Pulse Ox O2 Delivery O2 Flow Rate FiO2 06/10/21 07:42 36.6 77 20 124/60 (81) 93 Room Air 06/10/21 07:02 0.00 Capillary Refill : General Appearance: No Apparent Distress, Anxious, Chronically ill HEENT: PERRL/EOMI, Normal ENT Inspection, Pharynx Normal Neck: Full Range of Motion, Normal Inspection, Non Tender, Supple, Carotid Bruit Respiratory: No Accessory Muscle Use, No Respiratory Distress, Crackles, Decreased Breath Sounds Cardiovascular: Regular Rate, Rhythm, Normal Peripheral Pulses, Systolic Murmur Gastrointestinal: Normal Bowel Sounds, No Organomegaly, No Pulsatile Mass, Soft, Other (hernia) Rectal: Deferred Back: Normal Inspection, No CVA Tenderness, No Vertebral Tenderness Extremity: Non Tender, No Calf Tenderness, Pedal Edema Neurologic/Psychiatric: Alert, Oriented x3, No Motor/Sensory Deficits, Normal Mood/Affect, supervisor shearing II-XII Norm as Tested Skin: Normal Color, Warm/Dry, Other (Right carotid endarterectomy incision line) Lymphatic: No Adenopathy Results/Procedures Lab Patient resulted labs reviewed. FIM Transfers Therapy Code Descriptions/Definitions Functional [place] Measure: 0=Not Assessed/NA 4=Minimal Assistance 1=Total Assistance 5=Supervision or Setup 2=Maximal Assistance 6=Modified [place] 3=Moderate Assistance 7=Complete IndependenceSCALE: Activities may be completed with or without assistive devices. 5-Zzlwefzzja-hpsjxbz completes the activity by him/herself with no assistance from a helper. 5-Set-up or Clean-up Assistance-helper sets up or cleans up; patient completes activity. [place] assists only prior to or following the activity. 4-Supervision or Touching Assistance-helper provides verbal cues and/or touching/steadying and/or contact guard assistance as patient completes activity. Assistance may be provided throughout the activity or intermittently. 3-Partial/Moderate Assistance-helper does LESS THAN HALF the effort. [place] lifts, holds or supports trunk or limbs, but provides less than half the effort. 2-Substantial/Maximal Assistance-helper does MORE THAN HALF the effort. [place] lifts or holds trunk or limbs and provides more than half the effort. 5-Cigdazuet-ysgsqg does ALL the effort. Patient does none of the effort to complete the activity. Or, the assistance of 2 or more helpers is required for the patient to complete the activity. If activity was not attempted, code reason: 7-Patient Refused. 9-Not Applicable-not attempted and the patient did not perform the activity before the current illness, exacerbation or injury. 10-Not Attempted due to Environmental Limitations-(lack of equipment, weather restraints, etc.). 88-Not Attempted due to Medical Conditions or Safety Concerns. Roll Left to Right (QC): 6 Sit to Lying (QC): 6 Sit to Stand (QC): 6 Chair/Xwb-qq-Pphdg Xfer(QC): 6 Car Transfer (QC): 6 Gait Training Does the Patient Walk?: Yes Distance: 400'x2 Walk 10 feet (QC): 6 Walk 50 ft with 2 Turns(QC): 6 Walk 150 ft (QC): 6 Walking 10ft/uneven surface-QC: 6 Gait Persons Needed: 0 Gait Assistive Device: FWW Wheelchair Training Wheel 50 ft with 2 turns (QC): 9 Wheel 150 ft (QC): 9 Stair Training Stair Training: Handrails/: 1 handrail #of Steps: 12 1 Step (curb) (QC): 6 4 Steps (QC): 6 12 Steps (QC): 6 Stairs: Pattern: Reciprocal Balance Picking up an Object (QC): 6 ADL-Treatment Eating (QC): 6 Oral Hygiene (QC): 6 Bathing Location: L Arm, R Arm, L Upper Leg, R Upper Leg, L Lower Leg (including foot), R Lower Leg (including foot), Chest, Abdomen, Buttocks, Perineal Area Shower/Bathe Self (QC): 6 Upper Body Dressing (QC): 6 Lower Body Dressing (QC): 6 On/Off Footwear (QC): 6 Toileting Hygiene (QC): 6 Toilet Transfer (QC): 6 Assessment/Plan Assessment and Plan Assess & Plan/Chief Complaint Assessment: Debility with weakness Right carotid endarterectomy AF w/RVR s/p cardioversion CHF diastolic type BCC hx Hypoxia uses oxygen at night chronically now she is on continuous Fall risk Impulsive and high risk for falls Acute bacterial bronchitis initiate antibiotic on 05/31/2021 Acute exacerbation of COPD placed on steroids on 06/01/2021 Plan: Home meds Cardiology consult Inpatient rehab protocol 05/29/2021: Nausea treatment Rehab protocol 05/30/2021: Oxygen supplementation Septic work-up 05/31/2021: Antibiotic for bacterial bronchitis 06/01/2021: Supportive care Diuresis Bronchitis treatment 06/02/2021: Supportive care IV steroids 06/03/2021: IV steroids Antibiotic 06/04/2021: Patient resistant of discharge tomorrow Wean O2 06/05/2021: Moved to independent room Try to build confidence Oxygen wean 06/06/2021: Supportive care Wean oxygen Degree steroids 06/07/2021: Dr. Carroll consult for abdominal hernia cough Lasix per Dr. Knutson 06/08/21: Monitor cough O2 wean 06/09/21: Wean O2 DC home (1) Chronic heart failure with preserved ejection fraction (HFpEF) Assessment & Plan: Her peripheral edema is chronic and persists here in the hospital. I would just recommend that she continue to use compression stockings and take low-dose oral diuretic. She had no change with another dose of IV Lasix on 06/07. Continue oral Lasix. (2) Paroxysmal atrial fibrillation Assessment & Plan: She has been maintaining sinus rhythm as an outpatient on no antiarrhythmic drug. We will continue diltiazem for rate control in the event she has recurrent atrial fibrillation and apixaban for stroke prophylaxis. (3) Primary hypertension Assessment & Plan: Blood pressures have been intermittently elevated but continue to improve since increasing diltiazem and starting losartan. (4) Mixed hyperlipidemia Assessment & Plan: Continue statin medication. (5) Atherosclerosis of both carotid arteries Assessment & Plan: She is now status post right carotid endarterectomy. The site is healing well. She is on aspirin and statin medication. We may want to discontinue the aspirin in 1 month since she takes apixaban for the atrial fibrillation. This will help reduce the risk of hemorrhagic side effects in an octogenarian. (6) Mitral regurgitation Assessment & Plan: Her most recent echocardiogram from August 2020 only shows mild mitral regurgitation. (7) Pulmonary hypertension Assessment & Plan: This is been mild in the past and is probably related to her advanced age and chronic heart failure. ELVA BEAUCHAMP DO Jun 10, 2021 06:14
[2021-06-10] MEDS: CYANOCOBALAMIN 1,000 MCG (VITAMIN B-12) TABLET PO SCH (06:33)
[2021-06-10] MEDS: LEVOTHYROXINE 88 MCG (LEVOTHORID) TAB PO SCH (06:33)
[2021-06-10] MEDS: CATHETER FLUSH 10 ML SYR IV SCH (06:36)
[2021-06-10] MEDS ORDERED: predniSONE 20 MG TAB PO SCH (07:00)
[2021-06-10] MEDS: RT-ALBUTEROL/IPRATROPIUM 3 ML (DUONEB) VIAL INH SCH (07:02)
[2021-06-10] MEDS: RT--FLUTICASONE/SALMETEROL 113-14 (AIRDUO RespiCLICK) IH SCH (07:04)
[2021-06-10 07:42] VITALS: BP 124/60
--- NOTE | 2021-06-10 09:04 | Physical Therapy Daily Note ---
PT Daily Note-Current Subjective Pt sitting in recliner upon arrival. Pt agrees to PT and reports feeling as though she has turned a corner for the better yesterday. Pain Location: No Pain Reported Mental Status Patient Orientation: Person, Place, Time, Situation Transfers SCALE: Activities may be completed with or without assistive devices. 1-Ruqffnrxhm-mkvuwus completes the activity by him/herself with no assistance from a helper. 5-Set-up or Clean-up Assistance-helper sets up or cleans up; patient completes activity. Marianna assists only prior to or following the activity. 4-Supervision or Touching Assistance-helper provides verbal cues and/or touching/steadying and/or contact guard assistance as patient completes activity. Assistance may be provided throughout the activity or intermittently. 3-Partial/Moderate Assistance-helper does LESS THAN HALF the effort. Marianna lifts, holds or supports trunk or limbs, but provides less than half the effort. 2-Substantial/Maximal Assistance-helper does MORE THAN HALF the effort. Marianna lifts or holds trunk or limbs and provides more than half the effort. 3-Zdhimyxoy-bwhiln does ALL the effort. Patient does none of the effort to complete the activity. Or, the assistance of 2 or more helpers is required for the patient to complete the activity. If activity was not attempted, code reason: 7-Patient Refused. 9-Not Applicable-not attempted and the patient did not perform the activity before the current illness, exacerbation or injury. 10-Not Attempted due to Environmental Limitations-(lack of equipment, weather restraints, etc.). 88-Not Attempted due to Medical Conditions or Safety Concerns. Sit to Stand (QC): 6 Toilet Transfer (QC): 6 Weight Bearing Full Weight Bearing Full Weight Bearing 10# lifting restriction and no squatting Gait Training Does the Patient Walk?: Yes Distance: 500', 250' Walk 10 feet (QC): 6 Walk 50 ft with 2 Turns(QC): 6 Walk 150 ft (QC): 6 Gait Assistive Device: FWW Attempted w/ & w/o FWW, PT encouraged pt to slow shai down for improved control Treatments Pt transfers from sit to stand and amb. to BR. After finishing, pt is able to complete pericare. Pt amb. in hallway, taking RB as needed. Pt again amb. before returning to room to rest in recliner. ESTHETIC DERMATOLOGIST issues and reviews written H EP for Supine & Seated Ex. Pt has all needs met at end of tx, call light in hand. Assessment Current Status: Good Progress Pt is nervous about medical concerns but pt is able to perform transfers as well as amb. well. PT suggests FWW for extended amb. & at night but working toward weaning off FWW. PT advises slowing down shai for better control. PT Short Term Goals Short Term Goals Time Frame: Jun 04, 2021 Roll Left & Right: 6 Sit to lyin Lying to sitting on side of be: 6 Sit to stand: 4 (SBA) Chair/rgy-sn-yqvzt transfer: 4 (SBA) Walk 10 feet: 4 (SBA) Walk 50 feet with two turns: 4 (SBA) Walk 150 feet: 4 (SBA) 1 step (curb): 4 (SBA) 4 steps: 4 (SBA) PT Prison Goals Prison Goals PT Prison Goals Time Frame: Jun 18, 2021 Roll Left & Right (QC): 6 Sit to Lying (QC): 6 Lying-Sitting on Side/Bed(QC): 6 Sit to Stand (QC): 6 Chair/Yqe-iu-Nhwra Xfer(QC): 6 Toilet Transfer (QC): 6 Car Transfer (QC): 6 Does the Patient Walk: Yes Walk 10 feet (QC): 6 Walk 50ft with 2 Turns (QC): 6 Walk 150 ft (QC): 6 Walking 10ft on Uneven Surface: 6 1 Step (curb) (QC): 4 (SBA) 4 Steps (QC): 4 (SBA) 12 Steps (QC): 4 (SBA) Picking up an Object (QC): 6 Wheel 50 feet with 2 turns (QC: 9 Wheel 150 feet: 9 PT Plan Treatment/Plan Treatment Plan: Continue Plan of Care Treatment Plan: Bed Mobility, Education, Functional Activity Samy, Functional Strength, Group Therapy, Gait, Safety, Therapeutic Exercise, Transfers Treatment Duration: Jun 18, 2021 Frequency: At least 5 of 7 days/Wk (IRF) Estimated Hrs Per Day: 1.5 hours per day Patient and/or Family Agrees t: Yes Safety Risks/Education Patient Education: Gait Training, Issued Written HEP, Correct Positioning, Safety Issues Teaching Recipient: Patient Teaching Methods: Discussion Response to Teaching: Verbalize Understanding Time/GCodes Time In: 800 Time Out: 900 Total Billed Treatment Time: 60 Total Billed Treatment 1, FA (15m), EX (15m) & GT x2 (30m) GET GAN ESTHETIC DERMATOLOGIST Jun 10, 2021 09:04
[2021-06-10] MEDS: FUROSEMIDE 40 MG (LASIX) TAB PO SCH (09:11)
[2021-06-10] MEDS: LOSARTAN 25 MG (COZAAR) TAB PO SCH (09:11)
[2021-06-10] MEDS: VITAMIN D3 25 MCG (1,000 UNITS) TABLET PO SCH (09:11)
[2021-06-10] MEDS: BENZONATATE 100 MG (TESSALON) CAPSULE PO SCH ×2 (09:11→13:07)
[2021-06-10] MEDS: LORATADINE (CLARITIN) 10 MG TAB PO SCH (09:12)
[2021-06-10] MEDS: APIXABAN 5 MG (ELIQUIS) TABLET PO SCH (09:12)
[2021-06-10] MEDS: KCL 8 MEQ (MICRO K) TABLET PO SCH (09:12)
[2021-06-10] MEDS: doxAzosin 1 MG (CARDURA) TAB PO SCH (09:12)
[2021-06-10] MEDS: guaiFENesin (MUCINEX) 600 MG TAB PO SCH (09:12)
[2021-06-10] MEDS: polyethylene glycoL POWDER 17 GM (MIRALAX) PACK PO SCH (09:15)
[2021-06-10] MEDS: ARTIFICAL TEARS 0.4 ML UNIT DOSE (REFRESH PLUS) OU SCH (09:16)
[2021-06-10] MEDS: MAGNESIUM OXIDE (MAG-OX)400 MG TAB PO SCH (09:24)
[2021-06-10] MEDS ORDERED: DILT300C52 PO (10:01)
[2021-06-10] MEDS ORDERED: LOSA25TA41 PO (10:01)
[2021-06-10] MEDS ORDERED: FURO40TA4 PO (10:01)
[2021-06-10] MEDS ORDERED: ALPR.25T PO (10:01)
[2021-06-10] MEDS ORDERED: PRD20T PO (10:01)
[2021-06-10] MEDS ORDERED: POTA8CAP20 PO (10:01)
[2021-06-10] MEDS ORDERED: BENZ100C18 PO (10:01)
[2021-06-10] MEDS ORDERED: TRM50T PO (10:01)
[2021-06-10] MEDS ORDERED: FLUT1AER4 IH (10:01)
[2021-06-10] MEDS ORDERED: GABA-486 PO (10:01)
[2021-06-10] MEDS ORDERED: GUAI600T43 PO (10:01)
--- NOTE | 2021-06-10 10:02 | D/C HH Face to Face Order ---
D/C Face to Face Orders Reconcile Patient Problems Problems Reviewed?: Yes Instructions for Patient Via [facility], Patient Instructions/FollowUp: PCP 1 week Physician to follow Patient: Cassidy Discharge Diet for Home: No Restrictions Patient Problems: Debility COPD Patient Data-Allergies,Ht & Wt Patient Allergies: Coded Allergies: codeine (Unverified Allergy, Mild, Vomiting, 05/28/21) adhesive tape (Unverified Allergy, Unknown, 11/27/15) amoxicillin (Unverified Allergy, Unknown, 11/27/15) Height (Feet): 5 Height (Inches): 3.50 Weight (Pounds): 157 Weight (Ounces): 0.9 Home Health Need/Face to Face Date of Face to Face: Jun 10, 2021 Clinical Findings: Generalized weakness and fatigue, Instability, Muscle weakness, Shortness of breath, Unsteady gait I have seen Pt stys-we-zfnr: Yes Discharged To: Home Diagnosis/Conditions: Debility Patient is Homebound due to: Fred fall risk due to instabilty, Muscle weakness, Shortness of breath/distress Homebound Status Due to the above stated illness, injury or surgical procedure (medical condition or diagnosis) and associated clinical findings, the patient is homebound because of his/her inability to leave home except with aid of a supportive device and/or person AND leaving the home requires a considerable and taxing effort or is medically contraindicated. Pt req the following assistanc: Walker Home Health Nursing Orders Home Health Services Order: Nursing Services, Area Supervisor-Evaluate & Treat, Physical Therapy-Evaluate & Treat Home Health Infusion Therapy Line Start Date: Jun 02, 2021 Certify Stmt I certify that this patient is under my care and that I, a nurse practitioner or a physician; a assistant center manager working with me, had a face to face encounter that - meets the physician face to face encounter requirements with this patient as ELVA Thomas DO Jun 10, 2021 10:02
--- NOTE | 2021-06-10 10:03 | Discharge Summary ---
Diagnosis/Chief Complaint Date of Admission May 28, 2021 at 13:24 Date of Discharge Discharge Date: Jun 10, 2021 Discharge Diagnosis Assessment: Debility with weakness Right carotid endarterectomy AF w/RVR s/p cardioversion CHF diastolic type BCC hx Hypoxia uses oxygen at night chronically now she is on continuous Fall risk Impulsive and high risk for falls Acute bacterial bronchitis initiate antibiotic on 05/31/2021 Acute exacerbation of COPD placed on steroids on 06/01/2021 Plan: Home meds Cardiology consult Inpatient rehab protocol 05/29/2021: Nausea treatment Rehab protocol 05/30/2021: Oxygen supplementation Septic work-up 05/31/2021: Antibiotic for bacterial bronchitis 06/01/2021: Supportive care Diuresis Bronchitis treatment 06/02/2021: Supportive care IV steroids 06/03/2021: IV steroids Antibiotic 06/04/2021: Patient resistant of discharge tomorrow Wean O2 06/05/2021: Moved to independent room Try to build confidence Oxygen wean 06/06/2021: Supportive care Wean oxygen Degree steroids 06/07/2021: Dr. Carroll consult for abdominal hernia cough Lasix per Dr. Knutson 06/08/21: Monitor cough O2 wean 06/09/21: Wean O2 DC home (1) Chronic heart failure with preserved ejection fraction (HFpEF) Assessment & Plan: Her peripheral edema is chronic and persists here in the hospital. I would just recommend that she continue to use compression stockings and take low-dose oral diuretic. She had no change with another dose of IV Lasix on 06/07. Continue oral Lasix. (2) Paroxysmal atrial fibrillation Assessment & Plan: She has been maintaining sinus rhythm as an outpatient on no antiarrhythmic drug. We will continue diltiazem for rate control in the event she has recurrent atrial fibrillation and apixaban for stroke prophylaxis. (3) Primary hypertension Assessment & Plan: Blood pressures have been intermittently elevated but continue to improve since increasing diltiazem and starting losartan. (4) Mixed hyperlipidemia Assessment & Plan: Continue statin medication. (5) Atherosclerosis of both carotid arteries Assessment & Plan: She is now status post right carotid endarterectomy. The site is healing well. She is on aspirin and statin medication. We may want to discontinue the aspirin in 1 month since she takes apixaban for the atrial fibrillation. This will help reduce the risk of hemorrhagic side effects in an octogenarian. (6) Mitral regurgitation Assessment & Plan: Her most recent echocardiogram from August 2020 only shows mild mitral regurgitation. (7) Pulmonary hypertension Assessment & Plan: This is been mild in the past and is probably related to her advanced age and chronic heart failure. ELVA BEAUCHAMP DO Discharge Summary Discharge Physical Examination Allergies: Coded Allergies: codeine (Unverified Allergy, Mild, Vomiting, 05/28/21) adhesive tape (Unverified Allergy, Unknown, 11/27/15) amoxicillin (Unverified Allergy, Unknown, 11/27/15) Vitals & I&Os Vital Signs Date Time Temp Pulse Resp B/P (MAP) Pulse Ox O2 Delivery O2 Flow Rate FiO2 06/10/21 14:00 36.7 72 20 128/68 96 Room Air 06/10/21 07:02 0.00 General Appearance: Alert, Oriented X3, Cooperative Respiratory: Clear to Auscultation Cardiovascular: Regular Rate Psych/Mental Status: Mental Status NL Hospital Course Was the Problem List Reviewed?: Yes Lengthy hospital course for 14 days after admitted from [place] Status: post right carotid endarterectomy Pt did have an episode of early pneumonia, bacterial bronchitis with exacerbation of COPD requiring a lot of oxygen more than home dose at night. She did require additional IV Lasix per cardiology and an adjustment of her medications per Dr. Knutson. Overall pt was ready for discharge PCP was supportive. Pt did wean off oxygen during the day and will have close follow-up with PCP and patient liaison. Labs (last 24 hrs) Laboratory Tests 05/28/21 13:24: Lab Scanned Report Referred Lab Report 05/29/21 05:27: White Blood Count 7.9, Red Blood Count 3.62L, Hemoglobin 11.5, Hematocrit 35, Mean Corpuscular Volume 95, Mean Corpuscular Hemoglobin 32, Mean Corpuscular Hemoglobin Concent 33, Red Cell Distribution Width 12.2, Platelet Count 168, Mean Platelet Volume 9.8, Immature Granulocyte % (Auto) 0, Neutrophils (%) (Auto) 78H, Lymphocytes (%) (Auto) 12, Monocytes (%) (Auto) 8, Eosinophils (%) (Auto) 2, Basophils (%) (Auto) 0, Neutrophils # (Auto) 6.2, Lymphocytes # (Auto) 0.9L, Monocytes # (Auto) 0.6, Eosinophils # (Auto) 0.2, Basophils # (Auto) 0.0, Immature Granulocyte # (Auto) 0.0, Sodium Level 136, Potassium Level 3.8, Chloride Level 103, Carbon Dioxide Level 21, Anion Gap 12, Blood Urea Nitrogen 13, Creatinine 0.68, Estimat Glomerular Filtration Rate 83, BUN/Creatinine Ratio 19, Glucose Level 90, Calcium Level 8.8, Corrected Calcium 9.0, Total Bilirubin 0.8, Aspartate Amino Transf (AST/SGOT) 46H, Alanine Aminotransferase (ALT/SGPT) 26, Alkaline Phosphatase 59, Total Protein 6.8, Albumin 3.8 05/30/21 12:50: White Blood Count 6.6, Red Blood Count 3.58L, Hemoglobin 11.3L, Hematocrit 34L, Mean Corpuscular Volume 94, Mean Corpuscular Hemoglobin 32, Mean Corpuscular Hemoglobin Concent 33, Red Cell Distribution Width 11.9, Platelet Count 170, Me an Platelet Volume 9.0, Immature Granulocyte % (Auto) 1, Neutrophils (%) (Auto) 80H, Lymphocytes (%) (Auto) 8L, Monocytes (%) (Auto) 9, Eosinophils (%) (Auto) 2, Basophils (%) (Auto) 1, Neutrophils # (Auto) 5.3, Lymphocytes # (Auto) 0.6L, Monocytes # (Auto) 0.6, Eosinophils # (Auto) 0.1, Basophils # (Auto) 0.0, Immature Granulocyte # (Auto) 0.0, Sodium Level 133L, Potassium Level 3.7, Chloride Level 98, Carbon Dioxide Level 24, Anion Gap 11, Blood Urea Nitrogen 10, Creatinine 0.68, Estimat Glomerular Filtration Rate 83, BUN/Creatinine Ratio 15, Glucose Level 113H, Calcium Level 8.7, Corrected Calcium 8.9, Total Bilirubin 0.8, Aspartate Amino Transf (AST/SGOT) 32, Alanine Aminotransferase (ALT/SGPT) 22, Alkaline Phosphatase 59, Total Protein 6.5, Albumin 3.7, Lactic Acid Level 0.67, B-Type Natriuretic Peptide 122.0H, Procalcitonin 0.03 06/02/21 06:00: Sodium Level 137, Potassium Level 3.6, Chloride Level 95L, Carbon Dioxide Level 31, Anion Gap 11, Blood Urea Nitrogen 9, Creatinine 0.70, Estimat Glomerular Filtration Rate 80, BUN/Creatinine Ratio 13, Glucose Level 140H, Calcium Level 9.1, Corrected Calcium 9.3, Total Bilirubin 0.5, Aspartate Amino Transf (AST/SGOT) 20, Alanine Aminotransferase (ALT/SGPT) 18, Alkaline Phosphatase 66, Total Protein 6.6, Albumin 3.7 06/02/21 06:06: B-Type Natriuretic Peptide 153.6H 06/02/21 06:08: White Blood Count 3.2L, Red Blood Count 3.80, Hemoglobin 12.1, Hematocrit 35, Mean Corpuscular Volume 93, Mean Corpuscular Hemoglobin 32, Mean Corpuscular Hemoglobin Concent 34, Red Cell Distribution Width 11.9, Platelet Count 199, Mean Platelet Volume 9.1, Immature Granulocyte % (Auto) 0, Neutrophils (%) (Auto) 86H, Lymphocytes (%) (Auto) 11L, Monocytes (%) (Auto) 3, Eosinophils (%) (Auto) 0, Basophils (%) (Auto) 0, Neutrophils # (Auto) 2.7, Lymphocytes # (Auto) 0.4L, Monocytes # (Auto) 0.1, Eosinophils # (Auto) 0.0, Basophils # (Auto) 0.0, Immature Granulocyte # (Auto) 0.0, Procalcitonin 0.03 06/02/21 07:36: Lactic Acid Level 1.50 06/02/21 09:10: Influenza Type A (RT-PCR) Not Detected, Influenza Type B (RT-PCR) Not Detected, SARS-CoV-2 RNA (RT-PCR) Not Detected 06/03/21 10:30: Sodium Level 136, Potassium Level 3.3L, Chloride Level 94L, Carbon Dioxide Level 29, Anion Gap 13, Blood Urea Nitrogen 17, Creatinine 0.85, Estimat Glomerular Filtration Rate 64, BUN/Creatinine Ratio 20, Glucose Level 142H, Calcium Level 9.0 06/06/21 05:45: Sodium Level 135, Potassium Level 3.5L, Chloride Level 95L, Carbon Dioxide Level 32, Anion Gap 8, Blood Urea Nitrogen 21H, Creatinine 0.75, Estimat Glomerular Filtration Rate 74, BUN/Creatinine Ratio 28, Glucose Level 142H, Calcium Level 8.1L 06/08/21 06:45: Sodium Level 140, Potassium Level 3.3L, Chloride Level 98, Carbon Dioxide Level 32, Anion Gap 10, Blood Urea Nitrogen 26H, Creatinine 0.78, Estimat Glomerular Filtration Rate 71, BUN/Creatinine Ratio 33, Glucose Level 102, Calcium Level 8.2L 06/09/21 04:45: Sodium Level 136, Potassium Level 3.8, Chloride Level 96L, Carbon Dioxide Level 31, Anion Gap 9, Blood Urea Nitrogen 31H, Creatinine 0.83, Estimat Glomerular Filtration Rate 66, BUN/Creatinine Ratio 37, Glucose Level 112H, Calcium Level 8.3L, White Blood Count 18.5H, Red Blood Count 3.09L, Hemoglobin 9.6#L, Hematocrit 29L, Mean Corpuscular Volume 94, Mean Corpuscular Hemoglobin 31, Mean Corpuscular Hemoglobin Concent 33, Red Cell Distribution Width 12.9, Platelet Count 305, Mean Platelet Volume 8.8L, Immature Granulocyte % (Auto) 1, Neutrophils (%) (Auto) 88H, Lymphocytes (%) (Auto) 5L, Monocytes (%) (Auto) 6, Eosinophils (%) (Auto) 0, Basophils (%) (Auto) 0, Neutrophils # (Auto) 16.3H, Lymphocytes # (Auto) 0.9L, Monocytes # (Auto) 1.1H, Eosinophils # (Auto) 0.0, Basophils # (Auto) 0.0, Immature Granulocyte # (Auto) 0.2H, Neutrophils % (Manual) 94, Lymphocytes % (Manual) 3, Monocytes % (Manual) 3, [place] Cells SLIGHT, Elliptocytes SLIGHT, Corrected Calcium 9.0, Total Bilirubin 0.8, Aspartate Amino Transf (AST/SGOT) 22, Alanine Aminotransferase (ALT/SGPT) 27, Alkaline Phosphatase 52, Total Protein 5.6L, Albumin 3.1L 06/09/21 17:30: Urine Color YELLOW, Urine Clarity CLEAR, Urine pH 6.5, Urine Specific [place] 1.010L, Urine Protein NEGATIVE, Urine Glucose (UA) NEGATIVE, Urine Ketones NEGATIVE, Urine Nitrite NEGATIVE, Urine Bilirubin NEGATIVE, Urine Urobilinogen 0.2, Urine Leukocyte Esterase NEGATIVE, Urine RBC (Auto) NEGATIVE, Urine RBC NONE, Urine WBC RARE, Urine Squamous Epithelial Cells RARE, Urine Crystals NONE, Urine Bacteria NEGATIVE, Urine Casts NONE, Urine Mucus NEGATIVE, Urine Culture Indicated NO Microbiology 06/02/21 Gram Stain - Final, Complete 06/02/21 Sputum Culture - Final, Complete Usual upper respiratory arti 06/02/21 Blood Culture - Final, Complete Staph, Coag Neg (SIDE SEAM ENVELOPE MACHINE OPERATOR) Pending Labs Microbiology Date/Time Source Procedure Growth Status 06/02/21 17:45 Sputum Expectorated Gram Stain - Final Complete 06/02/21 17:45 Sputum Culture - Final Usual upper respiratory arti Complete 06/02/21 07:40 Peripheral Rt Forearm Blood Culture - Final Staph, Coag Neg (SIDE SEAM ENVELOPE MACHINE OPERATOR) Complete 06/02/21 07:36 Peripheral Left Wrist Blood Culture - Final No growth Complete Laboratory Tests 05/28/21 13:24: Lab Scanned Report Referred Lab Report 05/29/21 05:27: White Blood Count 7.9, Red Blood Count 3.62, Hemoglobin 11.5, Hematocrit 35, Mean Corpuscular Volume 95, Mean Corpuscular Hemoglobin 32, Mean Corpuscular Hemoglobin Concent 33, Red Cell Distribution Width 12.2, Platelet Count 168, Mean Platelet Volume 9.8, Immature Granulocyte % (Auto) 0, Neutrophils (%) (Auto) 78, Lymphocytes (%) (Auto) 12, Monocytes (%) (Auto) 8, Eosinophils (%) (Auto) 2, Basophils (%) (Auto) 0, Neutrophils # (Auto) 6.2, Lymphocytes # (Auto) 0.9, Monocytes # (Auto) 0.6, Eosinophils # (Auto) 0.2, Basophils # (Auto) 0.0, Immature Granulocyte # (Auto) 0.0, Sodium Level 136, Potassium Level 3.8, Chloride Level 103, Carbon Dioxide Level 21, Anion Gap 12, Blood Urea Nitrogen 13, Creatinine 0.68, Estimat Glomerular Filtration Rate 83, BUN/Creatinine Ratio 19, Glucose Level 90, Calcium Level 8.8, Corrected Calcium 9.0, Total Bilirubin 0.8, Aspartate Amino Transf (AST/SGOT) 46, Alanine Aminotransferase (ALT/SGPT) 26, Alkaline Phosphatase 59, Total Protein 6.8, Albumin 3.8 05/30/21 12:50: White Blood Count 6.6, Red Blood Count 3.58, Hemoglobin 11.3, Hematocrit 34, Mean Corpuscular Volume 94, Mean Corpuscular Hemoglobin 32, Mean Corpuscular Hemoglobin Concent 33, Red Cell Distribution Width 11.9, Platelet Count 170, Mean Platelet Volume 9.0, Immature Granulocyte % (Auto) 1, Neutrophils (%) (Auto) 80, Lymphocytes (%) (Auto) 8, Monocytes (%) (Auto) 9, Eosinophils (%) (Auto) 2, Basophils (%) (Auto) 1, Neutrophils # (Auto) 5.3, Lymphocytes # (Auto) 0.6, Monocytes # (Auto) 0.6, Eosinophils # (Auto) 0.1, Basophils # (Auto) 0.0, Immature Granulocyte # (Auto) 0.0, Sodium Level 133, Potassium Level 3.7, Chloride Level 98, Carbon Dioxide Level 24, Anion Gap 11, Blood Urea Nitrogen 10, Creatinine 0.68, Estimat Glomerular Filtration Rate 83, BUN/Creatinine Ratio 15, Glucose Level 113, Calcium Level 8.7, Corrected Calcium 8.9, Total Bilirubin 0.8, Aspartate Amino Transf (AST/SGOT) 32, Alanine Aminotransferase (ALT/SGPT) 22, Alkaline Phosphatase 59, Total Protein 6.5, Albumin 3.7, Lactic Acid Level 0.67, B-Type Natriuretic Peptide 122.0, Procalcitonin 0.03 06/02/21 06:00: Sodium Level 137, Potassium Level 3.6, Chloride Level 95, Carbon Dioxide Level 31, Anion Gap 11, Blood Urea Nitrogen 9, Creatinine 0.70, Estimat Glomerular Filtration Rate 80, BUN/Creatinine Ratio 13, Glucose Level 140, Calcium Level 9.1, Corrected Calcium 9.3, Total Bilirubin 0.5, Aspartate Amino Transf (AST/SGOT) 20, Alanine Aminotransferase (ALT/SGPT) 18, Alkaline Phosphatase 66, Total Protein 6.6, Albumin 3.7 06/02/21 06:06: B-Type Natriuretic Peptide 153.6 06/02/21 06:08: White Blood Count 3.2, Red Blood Count 3.80, Hemoglobin 12.1, Hematocrit 35, Mean Corpuscular Volume 93, Mean Corpuscular Hemoglobin 32, Mean Corpuscular Hemoglobin Concent 34, Red Cell Distribution Width 11.9, Platelet Count 199, Mean Platelet Volume 9.1, Immature Granulocyte % (Auto) 0, Neutrophils (%) (Auto) 86, Lymphocytes (%) (Auto) 11, Monocytes (%) (Auto) 3, Eosinophils (%) (Auto) 0, Basophils (%) (Auto) 0, Neutrophils # (Auto) 2.7, Lymphocytes # (Auto) 0.4, Monocytes # (Auto) 0.1, Eosinophils # (Auto) 0.0, Basophils # (Auto) 0.0, Immature Granulocyte # (Auto) 0.0, Procalcitonin 0.03 06/02/21 07:36: Lactic Acid Level 1.50 06/02/21 09:10: Influenza Type A (RT-PCR) Not Detected, Influenza Type B (RT-PCR) Not Detected, SARS-CoV-2 RNA (RT-PCR) Not Detected 06/03/21 10:30: Sodium Level 136, Potassium Level 3.3, Chloride Level 94, Carbon Dioxide Level 29, Anion Gap 13, Blood Urea Nitrogen 17, Creatinine 0.85, Estimat Glomerular Filtration Rate 64, BUN/Creatinine Ratio 20, Glucose Level 142, Calcium Level 9.0 06/06/21 05:45: Sodium Level 135, Potassium Level 3.5, Chloride Level 95, Carbon Dioxide Level 32, Anion Gap 8, Blood Urea Nitrogen 21, Creatinine 0.75, Estimat Glomerular Filtration Rate 74, BUN/Creatinine Ratio 28, Glucose Level 142, Calcium Level 8.1 06/08/21 06:45: Sodium Level 140, Potassium Level 3.3, Chloride Level 98, Carbon Dioxide Level 32, Anion Gap 10, Blood Urea Nitrogen 26, Creatinine 0.78, Estimat Glomerular Filtration Rate 71, BUN/Creatinine Ratio 33, Glucose Level 102, Calcium Level 8.2 06/09/21 04:45: Sodium Level 136, Potassium Level 3.8, Chloride Level 96, Carbon Dioxide Level 31, Anion Gap 9, Blood Urea Nitrogen 31, Creatinine 0.83, Estimat Glomerular Filtration Rate 66, BUN/Creatinine Ratio 37, Glucose Level 112, Calcium Level 8.3, White Blood Count 18.5, Red Blood Count 3.09, Hemoglobin 9.6, Hematocrit 29, Mean Corpuscular Volume 94, Mean Corpuscular Hemoglobin 31, Mean Corpuscular Hemoglobin Concent 33, Red Cell Distribution Width 12.9, Platelet Count 305, Mean Platelet Volume 8.8, Immature Granulocyte % (Auto) 1, Neutrophils (%) (Auto) 88, Lymphocytes (%) (Auto) 5, Monocytes (%) (Auto) 6, Eosinophils (%) (Auto) 0, Basophils (%) (Auto) 0, Neutrophils # (Auto) 16.3, Lymphocytes # (Auto) 0.9, Monocytes # (Auto) 1.1, Eosinophils # (Auto) 0.0, Basophils # (Auto) 0.0, Immature Granulocyte # (Auto) 0.2, Neutrophils % (Manual) 94, Lymphocytes % (Manual) 3, Monocytes % (Manual) 3, [place] Cells SLIGHT, Elliptocytes SLIGHT, Corrected Calcium 9.0, Total Bilirubin 0.8, Aspartate Amino Transf (AST/SGOT) 22, Alanine Aminotransferase (ALT/SGPT) 27, Alkaline Phosphatase 52, Total Protein 5.6, Albumin 3.1 06/09/21 17:30: Urine Color YELLOW, Urine Clarity CLEAR, Urine pH 6.5, Urine Specific [place] 1.010, Urine Protein NEGATIVE, Urine Glucose (UA) NEGATIVE, Urine Ketones NEGATIVE, Urine Nitrite NEGATIVE, Urine Bilirubin NEGATIVE, Urine Urobilinogen 0.2, Urine Leukocyte Esterase NEGATIVE, Urine RBC (Auto) NEGATIVE, Urine RBC NONE, Urine WBC RARE, Urine Squamous Epithelial Cells RARE, Urine Crystals NONE, Urine Bacteria NEGATIVE, Urine Casts NONE, Urine Mucus NEGATIVE, Urine Culture Indicated NO Discharge Home Medications: Active Scripts Active Prednisone 20 Mg Tab 20 Mg PO DAILY@0700 Mucinex (Guaifenesin) 600 Mg Tab.er.12h 600 Mg PO BID Fluticasone-Salmeterol 113-14 (Fluticasone/Salmeterol) 1 Each Aer.pow.ba 0 Each IH DAILY@0800 Tessalon Perles (Benzonatate) 100 Mg Capsule 200 Mg PO TID Furosemide 40 Mg Tablet 40 Mg PO DAILY Potassium Chloride 8 Meq Capsule.er 16 Meq PO BID WITH MEALS Xanax Tablet (Alprazolam) 0.25 Mg Tab 0.25 Mg PO Q8H PRN Gabapentin 100 Mg Capsule 200 Mg PO HS Tramadol HCl 50 Mg Tablet 50 Mg PO TID PRN Losartan Potassium 25 Mg Tablet 25 Mg PO DAILY Diltiazem 24Hr ER (Diltiazem HCl) 300 Mg Cap.er.24h 300 Mg PO DAILY@0900 Reported Flonase Allergy Relief (Fluticasone Propionate) 9.9 Ml [place].susp 2 [place] NSEACH HS PRN Refresh Optive Abdiaziz-3 Drops (Carboxymethyl/Gly/Poly80/Pf) 1 Each [place]pe[place] 1 Drop OU TID Culturelle (Lactobacillus Rhamnosus GG) 1 Each Capsule 1 Each PO HS Aspirin EC (Aspirin) 81 Mg Tablet.dr 81 Mg PO HS Refresh Liquigel (Carboxymethylcellulose Sodium) 15 Ml Drp.lq.gel 1 Drop OU BID Simvastatin 20 Mg Tablet 20 Mg PO HS Doxazosin Mesylate 1 Mg Tablet 1 Mg PO BID [Magic Mouthwash] Liquid 15 Ml QID PRN LIDOCAINE,NYSTATIN AND DIPHENHYDRAMINE Vitamin B-12 (Cyanocobalamin (Vitamin B-12)) 500 Mcg Tablet 500 Mcg PO DAILY Biofreeze (Menthol) 118 Ml Gel..ml. 1 Applic TP TID PRN Tylenol (Acetaminophen) 325 Mg Tablet 325 Mg PO Q6H PRN Vitamin D3 (Cholecalciferol (Vitamin D3)) 25 Mcg Capsule 50 Mcg PO DAILY TAKES 2 (25MCG) CAPS Vitamin D3 (Cholecalciferol (Vitamin D3)) 25 Mcg Capsule 25 Mcg PO HS Cetirizine HCl 10 Mg Tablet 10 Mg PO DAILY Docusate Sodium 100 Mg Tablet 100 Mg PO HS Levothyroxine Sodium 88 Mcg Tablet 88 Mcg PO DAILY [place] Saline Nasal Gel (Sodium Chloride/Aloe Vera) 14.1 Gm Gel..gram. 1 Applic NS BID PRN Eliquis (Apixaban) 5 Mg Tablet 5 Mg PO BID Magnesium (Magnesium Oxide) 400 Mg Tablet 400 Mg PO Q48H Instructions to patient/family Please see electronic discharge instructions given to patient. Diagnosis/Problems Diagnosis/Problems (1) History of right-sided carotid endarterectomy (2) Debility (3) Atrial fibrillation status post cardioversion (4) Hypertension Status: Acute ELVA BEAUCHAMP DO Jun 10, 2021 10:03
[2021-06-10] MEDS: SENNA W/DOCUSATE (SENOKOT S) TABLET PO SCH (10:05)
--- NOTE | 2021-06-10 13:09 | Therapy Team Discharge Summary ---
Therapy Discharge Summary Discharge Recommendations Date of Discharge Occupational Therapy Pt admitted to ARU s/p R carotid endartectomy. At PLOF, pt was independent with all ADLs and functional mobility, no AD. Upon initial evaluation, pt was independent with eating, SBA oral care and showering, set up upper body dressing and footwear, min A LE dressing and SBA toileting. OT Tx focused on increasing safety and independence with ADLs and functional mobility, and increasing BUE strength and activity tolerance. At discharge, pt was independent with all ADLs, meeting all LTGs. No AE/DME recommendations at this time. Pt to discharge from facility, d/c from OT. Decreased Activ Tolerance, Decreased UE Strength PT Mattress Specialist Goals Group Home Goals PT Group Home Goals Time Frame: Jun 18, 2021 Roll Left to Right (QC): 6 Sit to Lying (QC): 6 Lying-Sitting on Side/Bed(QC): 6 Sit to Stand (QC): 6 Chair/Vyv-vw-Vgdpz Xfer(QC): 6 Car Transfer (QC): 6 Does the Patient Walk: Yes Walk 10 feet (QC): 6 Walk 10ft-Uneven Surface(QC): 6 Walk 50ft with 2 Turns (QC): 6 Walk 150 ft (QC): 6 Wheel 50 feet with 2 turns (QC: 9 1 Step (curb) (QC): 4 (SBA) 4 Steps (QC): 4 (SBA) 12 Steps (QC): 4 (SBA) Picking up an Object (QC): 6 OT Mattress Specialist Goals Group Home Goals Time Frame: Jun 20, 2021 Eating (QC): 6 (met) Oral Hygiene (QC): 6 (met) Shower/Bathe Self (QC): 6 (met) Upper Body Dressing (QC): 6 (met) Lower Body Dressing (QC): 6 (met) On/Off Footwear (QC): 6 (met) Toileting Hygiene (QC): 6 (met) Toilet/Commode Transfer (QC): 6 Additional Goals: 1-Demonstrate ADL Tasks, 2-Verbalize Understanding, 3-Improve Strength/Samy 1=Demonstrate adherence to instructed precautions during ADL tasks. 2=Patient will verbalize/demonstrate understanding of assistive devices/modifications for ADL. 3=Patient will improve strength/tolerance for activity to enable patient to pe rform ADL's. BERTRAM SCHULTZ OT Jun 10, 2021 13:09
--- NOTE | 2021-06-10 13:58 | Therapy Team Discharge Summary ---
Therapy Discharge Summary Discharge Recommendations Date of Discharge Physical Therapy Patient came to rehab s/p R carotid endarterectomy. Upon evaluation patient performed rolling with independence, supine <-> sit SBA, sit <-> stand and transfers CGA, car transfer CGA, ambulated 150' with a rolling walker with CGA (including 50' with at least 2 turns of 90 degrees and 10' over an uneven surface), went up and down 4 steps using 1 handrail with CGA, can picked up an object from the floor with CGA. Patient has been performing bed mobility and transfer training, balance and endurance training, functional strengthening, stair training, gait training, and education. Patient has made good progress and has met all of her mineral economist goals. Now, patient performs bed mobility and transfers with independence, car transfer independent, ambulates at least 150' with a rolling walker with independence (including 50' with at least 2 turns of 90 degrees and 10' over an uneven surface), can go up and down 12 steps using 1 handrail with independence, and can crop picker an object from the floor with independence. Patient is being discharged from this facility today and will be discharged from PT at this time. Occupational Therapy Decreased Activ Tolerance, Decreased UE Strength PT Shelter Goals Standpipe Tender Goals PT Standpipe Tender Goals Time Frame: Jun 18, 2021 Roll Left to Right (QC): 6 Sit to Lying (QC): 6 Lying-Sitting on Side/Bed(QC): 6 Sit to Stand (QC): 6 Chair/Efs-ql-Otawt Xfer(QC): 6 Car Transfer (QC): 6 Does the Patient Walk: Yes Walk 10 feet (QC): 6 Walk 10ft-Uneven Surface(QC): 6 Walk 50ft with 2 Turns (QC): 6 Walk 150 ft (QC): 6 Wheel 50 feet with 2 turns (QC: 9 1 Step (curb) (QC): 4 (SBA) 4 Steps (QC): 4 (SBA) 12 Steps (QC): 4 (SBA) Picking up an Object (QC): 6 OT Standpipe Tender Goals Shelter Goals Time Frame: Jun 20, 2021 Eating (QC): 6 (met) Oral Hygiene (QC): 6 (met) Shower/Bathe Self (QC): 6 (met) Upper Body Dressing (QC): 6 (met) Lower Body Dressing (QC): 6 (met) On/Off Footwear (QC): 6 (met) Toileting Hygiene (QC): 6 (met) Toilet/Commode Transfer (QC): 6 Additional Goals: 1-Demonstrate ADL Tasks, 2-Verbalize Understanding, 3- ImproveStrength/Samy 1=Demonstrate adherence to instructed precautions during ADL tasks. 2=Patient will verbalize/demonstrate understanding of assistive devices/modifications for ADL. 3=Patient will improve strength/tolerance for activity to enable patient to perform ADL's. BALA VINES PT Jun 10, 2021 13:58
[2021-06-10 14:00] VITALS: BP 128/68
--- NOTE | 2021-06-10 17:17 | Progress Note ---
Subjective Date Seen by a Provider: Jun 10, 2021 Time Seen by a Provider: 12:55 Subjective/Events-last exam Fwup right carotid endarterectomy, HTN, atrial fibrillation, edema, scia cipriano/neuropathy, atelectesis/cough. Off oxygen during day since yesterday. Getting ready to be discharged to home. Objective Exam Vital Signs Date Time Temp Pulse Resp B/P (MAP) Pulse Ox O2 Delivery O2 Flow Rate FiO2 06/10/21 08:48 Room Air 06/10/21 07:42 36.6 77 20 124/60 (81) 93 Room Air 06/10/21 07:02 90 Room Air 0.00 06/09/21 21:37 96 Room Air 06/09/21 21:12 95 Room Air 06/09/21 20:00 36.8 74 18 116/58 (77) 96 Room Air Capillary Refill : General Appearance: No Apparent Distress Neck: Supple Respiratory: Lungs Clear Cardiovascular: Regular Rate, Rhythm Gastrointestinal: normal bowel sounds, non tender, soft Extremity: Non Tender, No Calf Tenderness Neurologic/Psychiatric: Alert, Oriented x3 Skin: Other (right neck wound healing well) Results Lab Laboratory Tests 06/09/21 17:30: Urine Color YELLOW, Urine Clarity CLEAR, Urine pH 6.5, Urine Specific [place] 1.010L, Urine Protein NEGATIVE, Urine Glucose (UA) NEGATIVE, Urine Ketones NE GATIVE, Urine Nitrite NEGATIVE, Urine Bilirubin NEGATIVE, Urine Urobilinogen 0.2, Urine Leukocyte Esterase NEGATIVE, Urine RBC (Auto) NEGATIVE, Urine RBC NONE, Urine WBC RARE, Urine Squamous Epithelial Cells RARE, Urine Crystals NONE, Urine Bacteria NEGATIVE, Urine Casts NONE, Urine Mucus NEGATIVE, Urine Culture Indicated NO Microbiology 06/02/21 Gram Stain - Final, Complete 06/02/21 Sputum Culture - Final, Complete Usual upper respiratory arti 06/02/21 Blood Culture - Final, Complete Staph, Coag Neg (CLIENT CONSULTANT) Assessment/Plan Assessment/Plan Assess & Plan/Chief Complaint 1. S/P right carotid endarterectomy--healing well 2. Hypertension--stable 3. Neuropathy/Sciatica--on gabapentin 4. Bibasilar Atelectesis/Cough--home with IS and acapella and oxygen q HS per her routine oxygen use 5. Edema--on lasix daily 6. Hx of Atrial Fibrillation--on eliquis and cardizem 7. Weakness--doing well with PT/OT, DC to home with HH 8. Hypokalemia--replaced 9. Leukocytosis--likely from solumedrol due to normal UA and repeat CXR Fwup with me in 1 week Clinical Quality Measures Admission Status Admission Dx 1. Right Carotid Artery Stenosis--S/P right carotid endarterectomy--wound healing well 2. History of Atrial Fibrillation with RVR--back on eliquis and cardizem, appears amiodarone has been discontinued on transfer, cardiology consulted 3. Hypertension--on cardizem and doxazosin 4. Post-op Edema--will given lasix and potassium in AM, continue compression hose 5. Bilateral Leg Neuropathy--add low dose gabapentin 6. Hypothyroidism--back on home thyroid dose I will follow along medically GENA GROSSMAN DO Jun 10, 2021 17:17
== END 2021-06-10 14:00 | disposition home health service (06) | DRG 948 ==
PROVIDERS: ADMIT Internal Medicine; ATTEND Internal Medicine
DX: R53.81 Other malaise (principal); I50.32 Chronic diastolic (congestive) heart failure; J98.11 Atelectasis; J44.1 Chronic obstructive pulmonary disease with (acute) exacerbation; J44.0 Chronic obstructive pulmonary disease with (acute) lower respiratory infection; I11.0 Hypertensive heart disease with heart failure; I48.0 Paroxysmal atrial fibrillation; E03.9 Hypothyroidism, unspecified; R09.02 Hypoxemia; R53.1 Weakness; I34.0 Nonrheumatic mitral (valve) insufficiency; I27.20 Pulmonary hypertension, unspecified; E78.2 Mixed hyperlipidemia; G62.9 Polyneuropathy, unspecified; J20.9 Acute bronchitis, unspecified; B35.1 Tinea unguium; H25.9 Unspecified age-related cataract; H54.7 Unspecified visual loss; M54.30 Sciatica, unspecified side; M41.9 Scoliosis, unspecified; M54.9 Dorsalgia, unspecified; M25.559 Pain in unspecified hip; L84 Corns and callosities; M20.40 Other hammer toe(s) (acquired), unspecified foot; E87.6 Hypokalemia; L43.3 Subacute (active) lichen planus; I65.22 Occlusion and stenosis of left carotid artery; R60.0 Localized edema; H91.90 Unspecified hearing loss, unspecified ear; S30.1XXA Contusion of abdominal wall, initial encounter; X50.0XXA Overexertion from strenuous movement or load, initial encounter; Z99.81 Dependence on supplemental oxygen; Z98.890 Other specified postprocedural states; Z79.01 Long term (current) use of anticoagulants; Z79.82 Long term (current) use of aspirin; Z79.899 Other long term (current) drug therapy; Z85.828 Personal history of other malignant neoplasm of skin; Z20.822 Contact with and (suspected) exposure to COVID-19; Z79.890 Hormone replacement therapy; Z87.891 Personal history of nicotine dependence; Z80.3 Family history of malignant neoplasm of breast
CPT/HCPCS: 36410; 36415; 71045; 71046; 76937; 80048; 80053; 81000; 83605; 83880; 84145; 85007; 85025; 85027; 87040; 87070; 87205; 87636; 94640; 94760; 94761

== ENCOUNTER → 2021-09-02 | Outpatient (CLI) | payer MEDICARE ==
[~2021-09-02] MED LIST changes: +ACET325T38 PO; +ALPR.25T PO; +BENZ100C18 PO; +CARB1DRO36 OU; +CETI10TA17 PO; +CHOL100048 PO; +CYAN500T8 PO; +DILT240T10 PO; +DILT300C52 PO; +DOCU100T2 PO; +DOXA1TAB2 PO; +FLUT1AER4 IH; +FLUT9.9S NSEACH; +GABA-486 PO; +GUAI600T43 PO; +LACT1CAP39 PO; +LEVO88TA54 PO; +LOSA25TA41 PO; +MAGIC MOUTHWASH; +MAGN400T39 PO; +MENT118G TP; +POTA8CAP20 PO; +PRD20T PO; +SIMV20TA26 PO; +SODI0.5GEL NS; +TRM50T PO
--- NOTE | 2021-09-02 13:20 | Diagnostic Imaging Report ---
INDICATION: Routine screening. COMPARISON: 04/08/2020 and 04/03/2019. TECHNIQUE: 2D and 3D bilateral screening mammography was performed with CAD. FINDINGS: Both breasts are heterogeneously dense, limiting the sensitivity of mammography. A cardiac loop recorder overlies the lower inner soft tissues of the left breast. Benign parenchymal and vascular calcifications are noted bilaterally. No dominant mass or malignant-appearing microcalcifications are seen. The axillae are unremarkable. IMPRESSION: No mammographic features suspicious for malignancy are identified. ACR BI-RADS Category 2: Benign findings. Result letter will be mailed to the patient. Note: At least 10% of breast cancer is not imaged by mammography. Dictated by: Dictated on workstation # [id number]
== END ==
LOC: RAD 13:45
PROVIDERS: ATTEND Family Medicine
DX: Z12.31 Encounter for screening mammogram for malignant neoplasm of breast (principal)
CPT/HCPCS: 77063; 77067

== ENCOUNTER → 2021-12-03 | Outpatient (CLI) | payer MEDICARE ==
[~2021-12-03] MED LIST changes: +RT-ALBUTEROL SULF 2.5 MG/3 ML PRE-MIX VIAL INH ONE
== END ==
LOC: RT 13:00
PROVIDERS: ATTEND Family Medicine
DX: J44.9 Chronic obstructive pulmonary disease, unspecified (principal)
CPT/HCPCS: 94060; 94726; 94729

== ENCOUNTER → 2022-01-27 | Outpatient (CLI) | payer MEDICARE ==
[~2022-01-27] MED LIST changes: -RT-ALBUTEROL SULF 2.5 MG/3 ML PRE-MIX VIAL INH ONE
--- NOTE | 2022-01-27 18:57 | Diagnostic Imaging Report ---
INDICATION: Productive cough EXAM: PA and lateral chest. FINDINGS: There is a loop recorder projecting over the left lower chest. Heart size and pulmonary vascularity are normal. There are no infiltrates, effusions or pneumothoraces. IMPRESSION: No acute abnormalities in the chest. Dictated by: Dictated on workstation # [id number]
== END ==
LOC: RAD 16:05
PROVIDERS: ATTEND Family Medicine
DX: R05.9 Cough, unspecified (principal)
CPT/HCPCS: 71046

== ENCOUNTER 2022-02-18 14:58 | Emergency (ER) | payer MEDICARE ==
[~2022-02-18] VITALS: Ht 160 cm; Wt 63.3 kg
[~2022-02-18 14:58] MED LIST changes: +POTA-177 PO; -POTA10TA37 PO
--- NOTE | 2022-02-18 15:16 | ED Fall/Injury ---
General Stated Complaint: FALL - LEFT SHOULDER PAIN Source: patient Exam Limitations: no limitations History of Present Illness Date Seen by Provider: Feb 18, 2022 Time Seen by Provider: 14:53 Initial Comments Patient to the ER by private conveyance from home with chief complaint she had a fall yesterday off of her steps up on her left side and is having pain in her left foot on plantar flexion as well as in her left shoulder anteriorly and her left ribs started hurting last night. She took a couple tablets of Tylenol 325 mg which helped her pain. She is on Eliquis switching over to Xarelto. She denies striking her head nor loss of consciousness. Allergies and Home Medications Allergies Coded Allergies: codeine (Unverified Allergy, Mild, Vomiting, 02/18/22) adhesive tape (Unverified Allergy, Unknown, 02/18/22) amoxicillin (Unverified Allergy, Unknown, 02/18/22) Patient Home Medication List Home Medication List Reviewed: Yes ALPRAZolam (Xanax Tablet) 0.25 Mg Tab, 0.25 MG PO Q8H PRN for ANXIETY Prescribed by: ELVA BEAUCHAMP on 06/10/21 1002 Acetaminophen (Tylenol) 325 Mg Tablet, 325 MG PO Q6H PRN for PAIN-MILD (1-4), (Reported) Entered as Reported by: BROOKLYNN MAURICE on 05/28/21 1031 Apixaban (Eliquis) 5 Mg Tablet, 5 MG PO BID, (Reported) Entered as Reported by: BROOKLYNN MAURICE on 05/28/21 1031 Aspirin (Aspirin EC) 81 Mg Tablet.dr, 81 MG PO HS, (Reported) Entered as Reported by: BROOKLYNN MAURICE on 05/28/21 1031 Benzonatate (Tessalon Perles) 100 Mg Capsule, 200 MG PO TID Prescribed by: ELVA BEAUCHAMP on 06/10/21 1001 Carboxymethyl/Gly/Poly80/Pf (Refresh Optive Abdiaziz-3 Drops) 1 Each Droperette, 1 DROP OU TID, (Reported) Entered as Reported by: BROOKLYNN MAURICE on 05/28/21 1031 Carboxymethylcellulose Sodium (Refresh Liquigel) 15 Ml Drp.lq.gel, 1 DROP OU BID, (Reported) Entered as Reported by: BROOKLYNN MAURICE on 05/28/21 1031 Cetirizine HCl (Cetirizine HCl) 10 Mg Tablet, 10 MG PO DAILY, (Reported) Entered as Reported by: BROOKLYNN MAURICE on 05/28/21 1031 Cholecalciferol (Vitamin D3) (Vitamin D3) 25 Mcg Capsule, 25 MCG PO HS, (Reported) Entered as Reported by: BROOKLYNN MAURICE on 05/28/21 1031 Cholecalciferol (Vitamin D3) (Vitamin D3) 25 Mcg Capsule, 50 MCG PO DAILY, (Reported) Entered as Reported by: BROOKLYNN MAURICE on 05/28/21 1031 Cyanocobalamin (Vitamin B-12) (Vitamin B-12) 500 Mcg Tablet, 500 MCG PO DAILY, (Reported) Entered as Reported by: BROOKLYNN MAURICE on 05/28/21 1031 Diltiazem HCl (Diltiazem 24Hr ER) 300 Mg Cap.er.24h, 300 MG PO DAILY@0900 Prescribed by: ELVA BEAUCHAMP on 06/10/21 100 Docusate Sodium (Docusate Sodium) 100 Mg Tablet, 100 MG PO HS, (Reported) Entered as Reported by: BROOKLYNN MAURICE on 05/28/21 1031 Doxazosin Mesylate (Doxazosin Mesylate) 1 Mg Tablet, 1 MG PO BID, (Reported) Entered as Reported by: BROOKLYNN MAURICE on 05/28/21 1031 Fluticasone Propionate (Flonase Allergy Relief) 9.9 Ml [place].susp, 2 SPRAY NSEACH HS PRN for ALLERGY SYMPTOMS, (Reported) Entered as Reported by: BROOKLYNN MAURICE on 05/28/21 1031 Fluticasone/Salmeterol (Fluticasone-Salmeterol 113-14) 1 Each Aer.pow.ba, 0 EACH IH DAILY@0800 Prescribed by: ELVA BEAUCHAMP on 06/10/21 1001 Furosemide (Furosemide) 40 Mg Tablet, 40 MG PO DAILY Prescribed by: ELVA BEAUCHAMP on 06/10/21 1001 Gabapentin (Gabapentin) 100 Mg Capsule, 200 MG PO HS Prescribed by: ELVA BEAUCHAMP on 06/10/21 1001 Guaifenesin (Mucinex) 600 Mg Tab.er.12h, 600 MG PO BID Prescribed by: ELVA BEAUCHAMP on 06/10/21 1001 Lactobacillus Rhamnosus GG (Culturelle) 1 Each Capsule, 1 EACH PO HS, (Reported) Entered as Reported by: BROOKLYNN MAURICE on 05/28/21 1031 Levothyroxine Sodium (Levothyroxine Sodium) 88 Mcg Tablet, 88 MCG PO DAILY, (Reported) Entered as Reported by: BROOKLYNN MAURICE on 05/28/21 1031 Losartan Potassium (Losartan Potassium) 25 Mg Tablet, 25 MG PO DAILY Prescribed by: ELVA BEAUCHAMP on 06/10/21 1001 Magnesium Oxide (Magnesium) 400 Mg Tablet, 400 MG PO Q48H, (Reported) Entered as Reported by: BROOKLYNN MAURICE on 05/28/21 1031 Menthol (Biofreeze) 118 Ml Gel..ml., 1 APPLIC TP TID PRN for ARTHRITIS, (Reported) Entered as Reported by: BROOKLYNN MAURICE on 05/28/21 1031 Potassium Chloride (Potassium Chloride) 8 Meq Capsule.er, 16 MEQ PO BID WITH MEALS Prescribed by: ELVA BEAUCHAMP on 06/10/21 1001 Prednisone (Prednisone) 20 Mg Tab, 20 MG PO DAILY@0700 Prescribed by: ELVA BEAUCHAMP on 06/10/21 1001 Simvastatin (Simvastatin) 20 Mg Tablet, 20 MG PO HS, (Reported) Entered as Reported by: BROOKLYNN MAURICE on 05/28/21 1031 Sodium Chloride/Aloe Vera ([place] Saline Nasal Gel) 14.1 Gm Gel..gram., 1 APPLIC NS BID PRN for ALLERGY SYMPTOMS, (Reported) Entered as Reported by: BROOKLYNN MAURICE on 05/28/21 1031 Tramadol HCl (Tramadol HCl) 50 Mg Tablet, 50 MG PO TID PRN for PAIN-MODERATE (5- 7) Prescribed by: ELVA BEAUCHAMP on 06/10/21 1002 [Magic Mouthwash] LIQUID, 15 ML QID PRN for MOUTH PAIN, (Reported) Entered as Reported by: BROOKLYNN MAURICE on 05/28/21 1031 Review of Systems Review of Systems Constitutional: No chills, No fever Eyes: Denies Drainage, Denies Pain Ears, Nose, Mouth, Throat: denies nose pain Respiratory: No cough, No short of breath Cardiovascular: No edema, No syncope Gastrointestinal: No abdominal pain, No constipation, No nausea Genitourinary: No discharge, No dysuria Musculoskeletal: see HPI; No back pain; joint pain All Other Systems Reviewed Negative Unless Noted: Yes Past Jyvhbjb-Mhjino-Yahlhz Hx Patient Social History Tobacco Use?: No Use of E-Cig and/or Vaping dev: No Immunizations Up To Date Tetanus Booster (TDap): Unknown First/Initial COVID19 Vaccinat: 06/29/20 Second COVID19 Vaccination Neo: 08/01/20 Seasonal Allergies Seasonal Allergies: No Past Medical History Surgeries: Yes (BASAL CELL CA REMOVED, SX FOR ENDOMETRIOSIS) Vascular Surgery Respiratory: Yes Pneumonia, COPD Currently Using CPAP: No Currently Using BIPAP: No Cardiac: Yes Atrial Fibrillation, Chronic Edema/Swelling, Hypertension Neurological: No Reproductive Disorders: No Genitourinary: Yes Kidney Infection, Bladder Infection Gastrointestinal: No Musculoskeletal: No Scoliosis Endocrine: Yes Hypothyroidsim HEENT: Yes (CATARACTS REMOVED) Cataract Loss of Vision: Bilateral Hearing Impairment: Hard of Hearing Cancer: No Psychosocial: Yes Sleep Difficulties, Anxiety Integumentary: No Blood Disorders: No Adverse Reaction/Blood Tranf: No Family Medical History Asthma Colon cancer Deafness or hearing loss Diabetes mellitus Hypertension Neoplasm Thyroid disease Physical Exam Vital Signs Vital Signs - First Documented 02/18/22 15:00 Temp 36.7 Pulse 66 Resp 18 B/P (MAP) 176/67 (103) Pulse Ox 98 O2 Delivery Room Air Capillary Refill : Height, Weight, BMI Height: 5'3.50" Weight: 157lbs. 0.9oz. 71.504278gc; 25.15 BMI Method: General Appearance: WD/WN, no apparent distress HEENT: PERRL/EOMI, TMs normal (No hemotympanum or scott sign), pharynx normal, other (Atraumatic head) Neck: non-tender, full range of motion, supple, normal inspection Cardiovascular: normal peripheral pulses, regular rate, rhythm Respiratory: no respiratory distress, no accessory muscle use Back: normal inspection, no vertebral tenderness Extremities: other (Lacks some degree of extension and abduction of the left shoulder. Tenderness to palpation over the insertion point of the middle of the deltoid on the humerus. No hematoma on the left upper extremity. There is a hematoma on the right forearm. The left foot metatarsals are mildly tender to palpation and reproducible pain on dorsiflexion of the left foot) Neurologic/Psychiatric: alert, normal mood/affect, oriented x 3 Skin: normal color, warm/dry Little Coma Score Best Eye Response: (4) Open Spontaneously Best Verbal Response: (5) Oriented Best Motor Response: (6) Obeys Commands Little Total: 15 Progress/Results/Core Measures Results/Orders My Orders Orders - LUANN HARDY Ct Head/Cervical Spine Wo (02/18/22 15:10) Ribs, Left 2-3 Views (02/18/22 15:10) Shoulder, Left, 3 Views (02/18/22 15:10) Foot, Left, 3 Views (02/18/22 15:10) Vital Signs/I&O 02/18/22 02/18/22 15:00 15:00 Temp 36.7 36.7 Pulse 66 66 Resp 18 18 B/P (MAP) 176/67 (103) 176/67 (103) Pulse Ox 98 98 O2 Delivery Room Air Progress Progress Note : Time: 15:14 Progress Note Plain films of the left foot, left shoulder and left ribs where she is tender. We will get a CT of her head and neck since she is on blood thinners. Diagnostic Imaging Diagonstic Imaging: Xray Plain Films/CT/US/NM/MRI: chest (left ribs) Comments [facility] [place] NAME: LATRICE LOZANO [facility] REC#: [id number] PT STATUS: REG ER : 1940 PHYSICIAN: LUANN HARDY MD ADMIT DATE: 02/18/22/ER Draft Date of Exam:02/18/22 RIBS, LEFT 2-3 VIEWS RIBS, LEFT 2-3 VIEWS INDICATION: Left-sided rib pain COMPARISON: Two-view chest from 01/27/2022 TECHNIQUE: 2 views of left ribs FINDINGS: No left-sided pneumothorax or pleural effusion. Left lung is clear. Calcifications of the costicartilage are noted. No acute fracture in the left ribs. IMPRESSION: No left-sided rib fracture. Dictated on workstation # [id number] Dict: 02/18/22 1537 Trans: 02/18/22 1539 [facility] [id number] Interpreted by: DEON LUTHER MD Electronically signed by: Reviewed: Reviewed by Mi Diagonstic Imaging: Xray Plain Films/CT/US/NM/MRI: other (Left shoulder) Comments [facility] [place] NAME: LATRICE LOZANO [facility] REC#: [id number] PT STATUS: REG ER : 1940 PHYSICIAN: LUANN HARDY MD ADMIT DATE: 02/18/22/ER Signed Date of Exam:02/18/22 SHOULDER, LEFT, 3 VIEWS CLINICAL HISTORY: Fall. Left shoulder pain. COMPARISON: None. TECHNIQUE: 3 views of the left shoulder. FINDINGS: There is no acute fracture or dislocation of the left shoulder. Alignment is anatomic. Degenerative changes are seen in the left shoulder with marginal osteophytes and joint space narrowing. No focal osseous lesions. The included left chest is clear. IMPRESSION: 1. No acute fracture or dislocation in the left shoulder. Dictated by: Dictated on workstation # [id number] Dict: 02/18/22 1538 Trans: 02/18/22 1540 [facility] [id number] Interpreted by: LUCERO DORADO DO Electronically signed by: LUCERO DORADO DO 02/18/22 1540 Reviewed: Reviewed by Mi Diagonstic Imaging: Xray Plain Films/CT/US/NM/MRI: other (Left foot) Comments [facility] [place] NAME: LATRICE LOZANO [facility] REC#: [id number] PT STATUS: REG ER : 1940 PHYSICIAN: LUANN HARDY MD ADMIT DATE: 02/18/22/ER Signed Date of Exam:02/18/22 FOOT, LEFT, 3 VIEWS CLINICAL HISTORY: Fall. Left foot pain. COMPARISON: None. TECHNIQUE: 3 views of the left foot. FINDINGS: There is no acute fracture or dislocation of the left foot. Alignment is anatomic. The imaged joint spaces are preserved. No focal osseous lesion. Soft tissue edema seen along the dorsum of the left foot. IMPRESSION: 1. No acute fracture or dislocation of the left foot. Dictated by: Dictated on workstation # [id number] Dict: 02/18/22 1539 Trans: 02/18/22 1543 [facility] [id number] Interpreted by: LUCERO DORADO DO Electronically signed by: LUCERO DORADO DO 02/18/22 1543 Reviewed: Reviewed by Me Diagonstic Imaging: CT Plain Films/CT/US/NM/MRI: c-spine, head Comments [facility] [place] NAME: LATRICE LOZANO [facility] REC#: [id number] PT STATUS: REG ER : 1940 PHYSICIAN: LUANN HARDY MD ADMIT DATE: 02/18/22/ER Draft Date of Exam:02/18/22 CT HEAD/CERVICAL SPINE WO PROCEDURE: CT head and CT cervical spine without contrast. TECHNIQUE: Multiple contiguous axial images were obtained through the brain and cervical spine without the use of intravenous contrast. Sagittal and coronal reformations through the cervical spine were then performed. Auto Exposure Controls were utilized during the CT exam to meet ALARA standards for radiation dose reduction. INDICATION: Fall, injury CT HEAD: There is no intracranial hemorrhage. There is no abnormal extra-axial fluid collection. There is cerebral cortical atrophy and chronic-appearing periventricular white matter disease as well as intracranial atherosclerotic vascular calcifications. There is no skull fracture. There is no pneumocephalus. There is no hemo-sinus. No evidence for elevated intracerebral pressures. The orbital contents appeared unremarkable. CERVICAL SPINE: Compared with the prior CT angiogram neck 03/13/2021. Cervical alignment and vertebral statures stable and unremarkable. No fracture or paraspinal hemorrhage. No facet joint dislocation, degenerative changes to the discs, endplates and facets throughout the cervical spine are chronic without high-grade canal stenosis. Central skull base intact. There are carotid atherosclerotic vascular calcifications. Thoracic inlet shows some mild biapical pleural-parenchymal scarring and there may be some retained secretions within the mildly distended visualized esophagus. IMPRESSION: Head shows chronic senescent changes with atrophy and white matter disease but no fracture or hemorrhage. The cervical spine shows chronic degenerative changes without fracture or traumatic malalignment or substantial stenosis. Dictated on workstation # [id number] Dict: 02/18/22 1528 Trans: 02/18/22 1535 [facility] [id number] Interpreted by: DELANO RICARDO Electronically signed by: Reviewed: Reviewed by Me Departure Impression Primary Impression: Fall Qualified Codes: W19.XXXA - Unspecified fall, initial encounter Additional Impressions: Contusion of rib on left side Qualified Codes: S20.212A - Contusion of left front wall of thorax, initial encounter Left foot pain Left shoulder pain Qualified Codes: M25.512 - Pain in left shoulder Disposition: 01 HOME, SELF-CARE Condition: Stable Departure-Patient Inst. Decision time for Depature: 16:04 Referrals: GENA GROSSMAN DO (PCP/Family) Primary Care Physician Patient Instructions: Foot Sprain ED, Bruised Rib (DC) Add. Discharge Instructions: Tylenol 1000 mg every 8 hours as needed for pain. Topical creams such as icy hot, Biofreeze, Aspercreme etc. as necessary for pain. Heating pads applied to your ribs, shoulder and foot as necessary for pain. If you have swelling in your foot and elevated above the level of your heart. Call physical therapy at [phone] to set up an evaluation if you not seeing some improvement by next week. You may also follow-up with your primary care doctor to help manage your symptoms. LUANN HARDY Feb 18, 2022 15:16
--- NOTE | 2022-02-18 15:35 | Diagnostic Imaging Report ---
PROCEDURE: CT head and CT cervical spine without contrast. TECHNIQUE: Multiple contiguous axial images were obtained through the brain and cervical spine without the use of intravenous contrast. Sagittal and coronal reformations through the cervical spine were then performed. Auto Exposure Controls were utilized during the CT exam to meet ALARA standards for radiation dose reduction. INDICATION: Fall, injury CT HEAD: There is no intracranial hemorrhage. There is no abnormal extra-axial fluid collection. There is cerebral cortical atrophy and chronic-appearing periventricular white matter disease as well as intracranial atherosclerotic vascular calcifications. There is no skull fracture. There is no pneumocephalus. There is no hemo-sinus. No evidence for elevated intracerebral pressures. The orbital contents appeared unremarkable. CERVICAL SPINE: Compared with the prior CT angiogram neck 03/13/2021. Cervical alignment and vertebral statures stable and unremarkable. No fracture or paraspinal hemorrhage. No facet joint dislocation, degenerative changes to the discs, endplates and facets throughout the cervical spine are chronic without high-grade canal stenosis. Central skull base intact. There are carotid atherosclerotic vascular calcifications. Thoracic inlet shows some mild biapical pleural-parenchymal scarring and there may be some retained secretions within the mildly distended visualized esophagus. IMPRESSION: Head shows chronic senescent changes with atrophy and white matter disease but no fracture or hemorrhage. The cervical spine shows chronic degenerative changes without fracture or traumatic malalignment or substantial stenosis. Dictated by: Dictated on workstation # [id number]
--- NOTE | 2022-02-18 15:40 | Diagnostic Imaging Report ---
RIBS, LEFT 2-3 VIEWS INDICATION: Left-sided rib pain COMPARISON: Two-view chest from 01/27/2022 TECHNIQUE: 2 views of left ribs FINDINGS: No left-sided pneumothorax or pleural effusion. Left lung is clear. Calcifications of the costicartilage are noted. No acute fracture in the left ribs. IMPRESSION: No left-sided rib fracture. Dictated by: Dictated on workstation # [id number]
--- NOTE | 2022-02-18 15:40 | Diagnostic Imaging Report ---
CLINICAL HISTORY: Fall. Left shoulder pain. COMPARISON: None. TECHNIQUE: 3 views of the left shoulder. FINDINGS: There is no acute fracture or dislocation of the left shoulder. Alignment is anatomic. Degenerative changes are seen in the left shoulder with marginal osteophytes and joint space narrowing. No focal osseous lesions. The included left chest is clear. IMPRESSION: 1. No acute fracture or dislocation in the left shoulder. Dictated by: Dictated on workstation # [id number]
--- NOTE | 2022-02-18 15:41 | Diagnostic Imaging Report ---
CLINICAL HISTORY: Fall. Left foot pain. COMPARISON: None. TECHNIQUE: 3 views of the left foot. FINDINGS: There is no acute fracture or dislocation of the left foot. Alignment is anatomic. The imaged joint spaces are preserved. No focal osseous lesion. Soft tissue edema seen along the dorsum of the left foot. IMPRESSION: 1. No acute fracture or dislocation of the left foot. Dictated by: Dictated on workstation # [id number]
[2022-02-18 16:34] VITALS: BP 161/74
== END 2022-02-18 16:45 | disposition home or self-care (01) ==
LOC: EDUNIT# 14:58 → ER 14:58
DX: S20.20XA Contusion of thorax, unspecified, initial encounter (principal); S50.11XA Contusion of right forearm, initial encounter; M25.512 Pain in left shoulder; M79.672 Pain in left foot; I48.91 Unspecified atrial fibrillation; W10.9XXA Fall (on) (from) unspecified stairs and steps, initial encounter; Z79.01 Long term (current) use of anticoagulants
CPT/HCPCS: 70450; 71100; 72125; 73030; 73630

== ENCOUNTER → 2022-05-06 | Outpatient (RCR) | payer MEDICARE | END | disposition still patient (30) | PROVIDERS: ATTEND Family Medicine | DX: R26.81 Unsteadiness on feet (principal) ==

== ENCOUNTER 2022-05-26 13:22 | Outpatient (RCR) | payer MEDICARE | END 2022-05-29 10:25 | disposition home or self-care (01) | PROVIDERS: ATTEND Family Medicine | DX: R26.81 Unsteadiness on feet (principal) ==

== ENCOUNTER → 2022-08-25 | Outpatient (CLI) | payer MEDICARE ==
--- NOTE | 2022-08-25 16:37 | Diagnostic Imaging Report ---
INDICATION: Neck pain. COMPARISON: None FINDINGS: Frontal, lateral, and open-mouth radiographic views of the cervical spine were obtained. AP static alignment shows exaggeration of lordotic curvature. There is no significant anteroretrolisthesis. There is no evidence of jumped facets. Cervical spine seen on the C7-T1 level on the lateral view. Open-mouth view shows normal C1-C2 alignment. The dens is suboptimally visualized. Vertebral body heights are maintained. There is no acute fracture. Mild to moderate multilevel degenerative changes are noted. IMPRESSION: 1. No acute fracture or dislocation of the cervical spine. Dictated by: Dictated on workstation # [id number]
== END ==
LOC: RAD 14:09
PROVIDERS: ATTEND Family Medicine
DX: M54.2 Cervicalgia (principal)
CPT/HCPCS: 72040

== ENCOUNTER → 2022-09-22 | Outpatient (CLI) | payer MEDICARE ==
[~2022-09-22] VITALS: Ht 160 cm; Wt 61.0 kg
[~2022-09-22] MED LIST changes: +REGADENOSON 0.4 MG/5 ML SYR (LEXISCAN) IV ONE
[2022-09-22] MEDS: CATHETER FLUSH 10 ML SYR IVP PRN ×2 (08:13→09:16)
[2022-09-22 09:15] VITALS: BP 169/100
--- NOTE | 2022-09-24 12:10 | STRESS TEST ---
DATE OF SERVICE: 09/22/2022 RESTING AND POST REGADENOSON TECHNETIUM-99M TETROFOSMIN SPECT CT IMAGING ORDERING PHYSICIAN: Tonya Menendez APRN PRIMARY PHYSICIAN: Dr. Poole. CLINICAL DIAGNOSIS: Chest discomfort. Baseline images were carried out after injection of 10.79 mCi of technetium-99m tetrofosmin. This was followed by 0.4 mg regadenoson and 31.5 mCi of technetium-99m tetrofosmin for stress imaging. The electrocardiogram showed sinus rhythm with left bundle branch block. The electrocardiogram did not change significantly with the regadenoson infusion. The patient tolerated the procedure well. Review of images at rest and following stress does not indicate any significant perfusion defects consistent with myocardial ischemia or infarction. Gated images show normal global left ventricular systolic function with normal regional wall motion. Left ventricular ejection fraction is calculated to be 56%. CONCLUSIONS: 1. No evidence of any significant myocardial ischemia or infarction on this study. 2. Normal regional wall motion. 3. Normal global systolic function with a calculated ejection fraction of 56%. Job ID: [id number] DocumentID: [id number] Dictated Date: 09/24/2022 08:23:24 Manager Culinary Date: 09/24/2022 11:45:00 Dictated By: TINA BERG MD; MIRANDA; FACP; FACC;
== END ==
LOC: CARD 07:51
PROVIDERS: ATTEND Nurse Practitioner Family
DX: R07.89 Other chest pain (principal)
CPT/HCPCS: 78452; 93017; A9502

== ENCOUNTER 2022-10-27 14:49 | Outpatient (RCR) | payer MEDICARE ==
[~2022-10-27 14:49] MED LIST changes: +POTA-330 PO; -POTA-51 PO; -REGADENOSON 0.4 MG/5 ML SYR (LEXISCAN) IV ONE
[2022-11-09] MEDS ORDERED: DILT-27 PO (14:07)
== END 2022-11-04 | disposition home or self-care (01) ==
PROVIDERS: ATTEND Nurse Practitioner Family
DX: M54.2 Cervicalgia (principal); M54.50 Low back pain, unspecified; R53.1 Weakness; M25.511 Pain in right shoulder; M25.512 Pain in left shoulder

== ENCOUNTER 2022-11-08 17:32 | Observation (INO) | payer MEDICARE ==
[~2022-11-08] VITALS: Ht 60.1 cm; Wt 160.0 kg
[2022-11-08] VITALS (9 sets, daily range): BP systolic 115–160; BP diastolic 79–117
[2022-11-08 18:28] LABS: BASOPHILS # (AUTO) 0.1 10^3/uL (0.0-0.1); BASOPHILS % (AUTO) 2 % (0-10); EOSINOPHILS # (AUTO) 0.1 10^3/uL (0.0-0.3); EOSINOPHILS % (AUTO) 2 % (0-10); HEMATOCRIT 44 % (35-52); HEMOGLOBIN 14.8 g/dL (11.5-16.0); LYMPHOCYTES # (AUTO) 1.2 10^3/uL (1.0-4.0); LYMPHOCYTES % (AUTO) 17 % (12-44); MEAN CORPUSCULAR HEMOGLOBIN 32 pg (25-34); MEAN CORPUSCULAR HGB CONC 34 g/dL (32-36); MEAN CORPUSCULAR VOLUME 93 fL (80-99); MONOCYTES # (AUTO) 0.4 10^3/uL (0.0-1.0); MONOCYTES % (AUTO) 6 % (0-12); NEUTROPHILS # (AUTO) 5.1 10^3/uL (1.8-7.8); NEUTROPHILS % (AUTO) 74 % (42-75); PLATELET COUNT 379 10^3/uL (130-400)
[2022-11-08 18:30] LABS: ALBUMIN 4.3 GM/DL (3.2-4.5); CHLORIDE 97 MMOL/L (98-107); POTASSIUM 3.9 MMOL/L (3.6-5.0); SODIUM 134 MMOL/L (135-145)
[2022-11-08 18:32] LABS: CALCIUM 10.2 MG/DL (8.5-10.1)
[2022-11-08 18:33] LABS: GLUCOSE 156 MG/DL (70-105)
[2022-11-08 18:34] LABS: CARBON DIOXIDE 25 MMOL/L (21-32)
[2022-11-08 18:35] LABS: BILIRUBIN,TOTAL 0.9 MG/DL (0.1-1.0)
[2022-11-08 18:36] LABS: ALKALINE PHOSPHATASE 91 U/L (40-136); CREATININE SERUM 0.99 MG/DL (0.60-1.30); GFR ESTIMATED 57
[2022-11-08 18:37] LABS: BUN/CREATININE RATIO 15
[2022-11-08 18:39] LABS: ALANINE AMINOTRANSFERASE 19 U/L (0-55)
--- NOTE | 2022-11-08 18:52 | ED General ---
General Chief Complaint: Cardiac/General Problems Stated Complaint: WEAKNESS Nursing Triage Note: PT ARRIVED PER EMS, PT CO OF FEELING OF NARROWING VISION. STATES WAS IN A-FIB. FEELING A LITTLE BETTER. PT STATES HAD RECENT FALL. Source of Information: Patient Exam Limitations: No Limitations History of Present Illness Date Seen by Provider: Nov 08, 2022 Time Seen by Provider: 18:15 Initial Comments 82 yo F with h/o intermittent afib, on eliquis presents for near syncope. She was sitting at her table and had a tunneling of vision and felt as though she would pass out. 1 week ago she had a similar episode in her shower and had a fall, causing bruising to her left leg and chest wall. She was evaluated by her PCP and it was though that she may have gone into and out of afib causing her symptoms. She has not missed any doses of medication. Denies other recent illness or changes in meds. She feels normal now. Does state she doesnt usually know when she goes into afib. No CP or SOB and symptoms were very brief. Other systems reviewed and negative except per HPI. Allergies and Home Medications Allergies Coded Allergies: codeine (Unverified Allergy, Mild, Vomiting, 02/18/22) adhesive tape (Unverified Allergy, Unknown, 02/18/22) amoxicillin (Unverified Allergy, Unknown, 02/18/22) Patient Home Medication List Home Medication List Reviewed: Yes ALPRAZolam (Xanax Tablet) 0.25 Mg Tab, 0.25 MG PO Q8H PRN for ANXIETY Prescribed by: ELVA BEAUCHAMP on 06/10/21 1002 Acetaminophen (Tylenol) 325 Mg Tablet, 325 MG PO Q6H PRN for PAIN-MILD (1-4), (Reported) Entered as Reported by: BROOKLYNN MAURICE on 05/28/21 1031 Apixaban (Eliquis) 5 Mg Tablet, 5 MG PO BID, (Reported) Entered as Reported by: BROOKLYNN MAURICE on 05/28/21 1031 Aspirin (Aspirin EC) 81 Mg Tablet.dr, 81 MG PO HS, (Reported) Entered as Reported by: BROOKLYNN MAURICE on 05/28/21 1031 Benzonatate (Tessalon Perles) 100 Mg Capsule, 200 MG PO TID Prescribed by: ELVA BEAUCHAMP on 1/4/22 1001 Carboxymethyl/Gly/Poly80/Pf (Refresh Optive Abdiaziz-3 Drops) 1 Each Droperette, 1 DROP OU TID, (Reported) Entered as Reported by: BROOKLYNN MAURICE on 05/28/21 103 Carboxymethylcellulose Sodium (Refresh Liquigel) 15 Ml Drp.lq.gel, 1 DROP OU BID, (Reported) Entered as Reported by: BROOKLYNN MAURICE on 05/28/21 103 Cetirizine HCl (Cetirizine HCl) 10 Mg Tablet, 10 MG PO DAILY, (Reported) Entered as Reported by: BROOKLYNN MAURICE on 05/28/21 103 Cholecalciferol (Vitamin D3) (Vitamin D3) 25 Mcg Capsule, 25 MCG PO HS, (Reported) Entered as Reported by: BROOKLYNN MAURICE on 05/28/21 103 Cholecalciferol (Vitamin D3) (Vitamin D3) 25 Mcg Capsule, 50 MCG PO DAILY, (Reported) Entered as Reported by: BROOKLYNN MAURICE on 05/28/21 103 Cyanocobalamin (Vitamin B-12) (Vitamin B-12) 500 Mcg Tablet, 500 MCG PO DAILY, (Reported) Entered as Reported by: BROOKLYNN MAURICE on 05/28/21 103 Diltiazem HCl (Diltiazem 24Hr ER) 300 Mg Cap.er.24h, 300 MG PO DAILY@0900 Prescribed by: ELVA BEAUCHAMP on 06/10/21 100 Docusate Sodium (Docusate Sodium) 100 Mg Tablet, 100 MG PO HS, (Reported) Entered as Reported by: BROOKLYNN MAURICE on 05/28/21 103 Fluticasone Propionate (Flonase Allergy Relief) 9.9 Ml [place].susp, 2 SPRAY NSEACH HS PRN for ALLERGY SYMPTOMS, (Reported) Entered as Reported by: BROOKLYNN MAURICE on 05/28/21 1031 Fluticasone/Salmeterol (Fluticasone-Salmeterol 113-14) 1 Each Aer.pow.ba, 0 EACH IH DAILY@0800 Prescribed by: ELVA BEAUCHAMP on 06/10/21 1001 Gabapentin (Gabapentin) 100 Mg Capsule, 200 MG PO HS Prescribed by: ELVA BEAUCHAMP on 06/10/21 1001 Guaifenesin (Mucinex) 600 Mg Tab.er.12h, 600 MG PO BID Prescribed by: ELVA BEAUCHAMP on 06/10/21 1001 Levothyroxine Sodium (Levothyroxine Sodium) 88 Mcg Tablet, 88 MCG PO DAILY, (Reported) Entered as Reported by: BROOKLYNN MAURICE on 05/28/21 1031 Losartan Potassium (Losartan Potassium) 25 Mg Tablet, 25 MG PO DAILY Prescribed by: ELVA BEAUCHAMP on 06/10/21 1001 Menthol (Biofreeze) 118 Ml Gel..ml., 1 APPLIC TP TID PRN for ARTHRITIS, (Reported) Entered as Reported by: BROOKLYNN MAURICE on 05/28/21 1031 Sodium Chloride/Aloe Vera ([place] Saline Nasal Gel) 14.1 Gm Gel..gram., 1 APPLIC NS BID PRN for ALLERGY SYMPTOMS, (Reported) Entered as Reported by: BROOKLYNN MAURICE on 05/28/21 1031 Discontinued Medications Doxazosin Mesylate (Doxazosin Mesylate) 1 Mg Tablet, 1 MG PO BID, (Reported) Discontinued Reason: No Longer Taking Entered as Reported by: BROOKLYNN MAURICE on 05/28/21 1031 Last Action: Discontinued Furosemide (Furosemide) 40 Mg Tablet, 40 MG PO DAILY Discontinued Reason: No Longer Taking Prescribed by: ELVA BEAUCHAMP on 06/10/21 100 Last Action: Discontinued Lactobacillus Rhamnosus GG (Culturelle) 1 Each Capsule, 1 EACH PO HS, (Reported) Discontinued Reason: No Longer Taking Entered as Reported by: BROOKLYNN MAURICE on 05/28/21 1031 Last Action: Discontinued Magnesium Oxide (Magnesium) 400 Mg Tablet, 400 MG PO Q48H, (Reported) Discontinued Reason: No Longer Taking Entered as Reported by: BROOKLYNN MAURICE on 05/28/21 1031 Last Action: Discontinued Potassium Chloride (Potassium Chloride) 8 Meq Capsule.er, 16 MEQ PO BID WITH MEALS Discontinued Reason: No Longer Taking Prescribed by: ELVA BEAUCHAMP on 06/10/21 1001 Last Action: Discontinued Prednisone (Prednisone) 20 Mg Tab, 20 MG PO DAILY@0700 Discontinued Reason: No Longer Taking Prescribed by: ELVA BEAUCHAMP on 06/10/21 1001 Last Action: Discontinued Tramadol HCl (Tramadol HCl) 50 Mg Tablet, 50 MG PO TID PRN for PAIN-MODERATE (5- 7) Discontinued Reason: No Longer Taking Prescribed by: ELVA BEAUCHAMP on 06/10/21 1002 Last Action: Discontinued [Magic Mouthwash] LIQUID, 15 ML QID PRN for MOUTH PAIN, (Reported) Discontinued Reason: No Longer Taking Entered as Reported by: BROOKLYNN MAURICE on 05/28/21 1031 Last Action: Discontinued Review of Systems Review of Systems Constitutional: see HPI Past Oamgnvv-Chgaoh-Igzwax Hx Patient Social History Tobacco Use?: No Substance use?: No Alcohol Use?: No Pt feels they are or have been: No Immunizations Up To Date Tetanus Booster (TDap): Unknown First/Initial COVID19 Vaccinat: 07/04/20 Second COVID19 Vaccination Neo: 07/25/20 Third COVID19 Vaccination Date: 04/04/21 Seasonal Allergies Seasonal Allergies: No Past Medical History Surgery/Hospitalization HX: AFIB, CHF, HYPOTHYROID, SCOLIOSIS, LYMPHENGITIS, COPD, DEGENERITIVE DISK DISEASE, OSTEOPEROSIS, MITRAL VALVE LEAK. SLEEPS WITH 1 LITER OF O2 AT NIGHT, BEGAN NEBULIZER AT HOME ON 02/04/22. Surgeries: Yes (BASAL CELL CA REMOVED, SX FOR ENDOMETRIOSIS) Vascular Surgery Respiratory: Yes Pneumonia, COPD Currently Using CPAP: No Currently Using BIPAP: No Cardiac: Yes Atrial Fibrillation, Chronic Edema/Swelling, Hypertension Neurological: No Reproductive Disorders: No Genitourinary: Yes Kidney Infection, Bladder Infection Gastrointestinal: No Musculoskeletal: No Scoliosis Endocrine: Yes Hypothyroidsim HEENT: Yes (CATARACTS REMOVED) Cataract Loss of Vision: Bilateral Hearing Impairment: Hard of Hearing Cancer: No Psychosocial: Yes Sleep Difficulties, Anxiety Integumentary: No Blood Disorders: No Adverse Reaction/Blood Tranf: No Family Medical History Asthma Colon cancer Deafness or hearing loss Diabetes mellitus Hypertension Neoplasm Thyroid disease Physical Exam Vital Signs Vital Signs - First Documented 11/08/22 17:35 Temp 36.3 Pulse 94 Resp 18 B/P (MAP) 138/75 (96) Pulse Ox 98 Capillary Refill : Less Than 3 Seconds Height, Weight, BMI Height: 5'3.50" Weight: 157lbs. 0.9oz. 71.549090cc; 23.00 BMI Method: General Appearance: No Apparent Distress, WD/WN HEENT: Normal ENT Inspection, Pharynx Normal Neck: Full Range of Motion, Normal Inspection, Non Tender, Supple Respiratory: Chest Non Tender, Lungs Clear, Normal Breath Sounds, No Accessory Muscle Use, No Respiratory Distress Cardiovascular: No Murmur, Normal Peripheral Pulses, Irregularly Irregular Gastrointestinal: Normal Bowel Sounds, No Organomegaly, No Pulsatile Mass, Non Tender, Soft Extremity: Normal Capillary Refill, Normal Inspection, Normal Range of Motion, Non Tender, No Calf Tenderness, No Pedal Edema Neurologic/Psychiatric: Alert, Oriented x3, No Motor/Sensory Deficits, 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 II- 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 Norm as Tested Skin: Normal Color, Warm/Dry Progress/Results/Core Measures Suspected Sepsis SIRS Temperature: Pulse: 94 Respiratory Rate: 18 Laboratory Tests 11/08/22 17:55: White Blood Count 7.0 Blood Pressure 138 /75 Mean: 96 Laboratory Tests 11/08/22 17:55: Creatinine 0.99, Platelet Count 379, Total Bilirubin 0.9 Results/Orders Lab Results Laboratory Tests Test 11/08/22 17:55 Range/Units White Blood Count 7.0 4.3-11.0 10^3/uL Red Blood Count 4.67 3.80-5.11 10^6/uL Hemoglobin 14.8 11.5-16.0 g/dL Hematocrit 44 35-52 % Mean Corpuscular Volume 93 80-99 fL Mean Corpuscular Hemoglobin 32 25-34 pg Mean Corpuscular Hemoglobin Concent 34 32-36 g/dL Red Cell Distribution Width 12.3 10.0-14.5 % Platelet Count 379 130-400 10^3/uL Mean Platelet Volume 9.0 9.0-12.2 fL Immature Granulocyte % (Auto) 0 % Neutrophils (%) (Auto) 74 42-75 % Lymphocytes (%) (Auto) 17 12-44 % Monocytes (%) (Auto) 6 0-12 % Eosinophils (%) (Auto) 2 0-10 % Basophils (%) (Auto) 2 0-10 % Neutrophils # (Auto) 5.1 1.8-7.8 10^3/uL Lymphocytes # (Auto) 1.2 1.0-4.0 10^3/uL Monocytes # (Auto) 0.4 0.0-1.0 10^3/uL Eosinophils # (Auto) 0.1 0.0-0.3 10^3/uL Basophils # (Auto) 0.1 0.0-0.1 10^3/uL Immature Granulocyte # (Auto) 0.0 0.0-0.1 10^3/uL Sodium Level 134 L 135-145 MMOL/L Potassium Level 3.9 3.6-5.0 MMOL/L Chloride Level 97 L 98-107 MMOL/L Carbon Dioxide Level 25 21-32 MMOL/L Anion Gap 12 5-14 MMOL/L Blood Urea Nitrogen 15 7-18 MG/DL Creatinine 0.99 0.60-1.30 MG/DL Estimat Glomerular Filtration Rate 57 BUN/Creatinine Ratio 15 Glucose Level 156 H 70-105 MG/DL Calcium Level 10.2 H 8.5-10.1 MG/DL Corrected Calcium 10.0 8.5-10.1 MG/DL Magnesium Level 2.0 1.6-2.4 MG/DL Total Bilirubin 0.9 0.1-1.0 MG/DL Aspartate Amino Transf (AST/SGOT) 20 5-34 U/L Alanine Aminotransferase (ALT/SGPT) 19 0-55 U/L Alkaline Phosphatase 91 40-136 U/L Troponin I < 0.028 <0.028 NG/ML Total Protein 8.0 6.4-8.2 GM/DL Albumin 4.3 3.2-4.5 GM/DL My Orders Orders - TONAREGINA DO Troponin I [place] (11/08/22 18:22) Magnesium (11/08/22 18:22) Cbc With Automated Diff (11/08/22 18:22) Comprehensive Metabolic Panel (11/08/22 18:22) Chest 1 View, Ap/Pa Only (11/08/22 18:23) Ekg Tracing (11/08/22 18:23) Diltiazem Injection (Cardizem Injection) (11/08/22 18:30) Ed Admission (Communication) (11/08/22 19:27) Medications Given in ED Current Medications Medications Dose Ordered Sig/Elida Route Start Time Stop Time Status Last Admin Dose Admin Diltiazem HCl 10 mg ONCE ONCE IVP 11/08/22 18:30 11/08/22 18:31 DC 11/08/22 18:47 10 MG Vital Signs/I&O 11/08/22 11/08/22 11/08/22 17:35 18:47 19:58 Temp 36.3 36.3 Pulse 94 94 96 Resp 18 16 B/P (MAP) 138/75 (96) 138/75 154/99 Pulse Ox 98 95 Capillary Refill : Less Than 3 Seconds Blood Pressure Mean: 96 Departure Communication (Admissions) Patient is hemodynamically stable. She had near syncopal episode today. She does have a loop recorder and this was interrogated. She did have some pauses and is in atrial fibrillation. Seems to be relatively well rate controlled. I spoke with Dr. Pierce given her pauses a week ago when she had symptoms and again today we will go ahead and admit her for further evaluation and treatment recommendations. The patient is comfortable agreeable current plan of care. She is been normotensive since arrival. No indication of sepsis, cardiogenic shock. Impression Primary Impression: Near syncope Additional Impression: Atrial fibrillation Disposition: ADMITTED INPATIENT Condition: Stable Departure-Patient Inst. Referrals: GENA GROSSMAN DO (PCP) Primary Care Physician REGINA CARBONE DO Nov 08, 2022 18:52
--- NOTE | 2022-11-08 19:08 | Diagnostic Imaging Report ---
EXAMINATION: Chest radiograph, portable AP view. DATE: 11/08/2022 7:04 PM INDICATION: 82-year-old female, syncope, weakness. COMPARISON: May 30, 2021. FINDINGS: Heart size and mediastinal contours are unchanged. There is no identified pneumothorax. There is no identified large pleural effusion. There is no identified interval focal airspace consolidation. There are somewhat coarse interstitial opacities likely reflecting chronic lung changes. IMPRESSION: 1. Chronic lung changes without evidence of an interval acute cardiopulmonary abnormality. Dictated by: Dictated on workstation # [id number]
[2022-11-08] MEDS ORDERED: MILK OF MAGNESIA 400 MG/5 ML 30 ML UDC PO PRN (20:45)
[2022-11-08] MEDS ORDERED: LACTULOSE SYRUP 10GM/15ML (ENULOSE) 30ML UDC PO PRN (20:45)
[2022-11-08] MEDS ORDERED: MELATONIN 3 MG TABLET PO PRN (20:45)
[2022-11-08] MEDS ORDERED: HYDROmorphone 2 MG/ML VIAL (DILAUDID) IV PRN (20:45)
[2022-11-08] MEDS ORDERED: ACETAMINOPHEN 325 MG TABLET PO PRN (20:45)
[2022-11-08] MEDS ORDERED: ONDANSETRON 4 MG/2 ML (SDV) Z0FRAN IV PRN (20:45)
[2022-11-08] MEDS ORDERED: BISACODYL 10 MG SUPP (DULCOLAX) PR PRN (20:45)
[2022-11-08] MEDS ORDERED: polyethylene glycoL POWDER 17 GM (MIRALAX) PACK PO PRN (20:45)
[2022-11-08] MEDS ORDERED: ALPRAZolam 0.25 MG (XANAX) TAB PO PRN (20:45)
[2022-11-08] MEDS ORDERED: CALCIUM CARBONATE 500 MG (TUMS) TAB.CHEW PO PRN (20:45)
[2022-11-08] MEDS ORDERED: ANTACID SUSP 30 ML UDC (MYLANTA) PO PRN (20:45)
[2022-11-08] MEDS ORDERED: diphenhydrAMINE 50 MG/ML INJ (BENADRYL) IVP PRN (20:45)
[2022-11-08] MEDS ORDERED: NS IV 1000 ML 1,000 ML IV SCH (20:45)
[2022-11-08] MEDS ORDERED: diphenhydrAMINE 25 MG TAB (BENADRYL) PO PRN (20:45)
[2022-11-08] MEDS ORDERED: ONDANSETRON 4 MG (ZOFRAN) ORAL DISSOLVE TAB PO PRN (20:45)
[2022-11-08] MEDS ORDERED: NS IV 1000 ML 1,000 ML ONE (20:53)
[2022-11-08] MEDS: DOCUSATE SODIUM 100 MG (COLACE) CAP PO SCH (20:57)
[2022-11-08] MEDS: SENNOSIDES 8.6 MG (SENOKOT) TAB PO SCH (20:57)
[2022-11-08] MEDS: APIXABAN 5 MG (ELIQUIS) TABLET PO SCH (20:58)
[2022-11-08] MEDS ORDERED: RT-ALBUTEROL/IPRATROPIUM 3 ML (DUONEB) VIAL INH PRN (21:15)
[2022-11-08] MEDS: inSUlin ASPART (NovoLOG) 1 UNIT/0.01 ML (CHARGE PER UNIT) SC SCH (21:21)
[2022-11-09] VITALS: BP 172/99
[2022-11-09 04:30] LABS: BASOPHILS # (AUTO) 0.1 10^3/uL (0.0-0.1); BASOPHILS % (AUTO) 1 % (0-10); EOSINOPHILS # (AUTO) 0.2 10^3/uL (0.0-0.3); EOSINOPHILS % (AUTO) 2 % (0-10); HEMATOCRIT 36 % (35-52); HEMOGLOBIN 12.4 g/dL (11.5-16.0); LYMPHOCYTES # (AUTO) 1.8 10^3/uL (1.0-4.0); LYMPHOCYTES % (AUTO) 22 % (12-44); MEAN CORPUSCULAR HEMOGLOBIN 32 pg (25-34); MEAN CORPUSCULAR HGB CONC 34 g/dL (32-36); MEAN CORPUSCULAR VOLUME 92 fL (80-99); MEAN PLATELET VOLUME 8.7 fL (9.0-12.2); MONOCYTES # (AUTO) 0.7 10^3/uL (0.0-1.0); MONOCYTES % (AUTO) 8 % (0-12); NEUTROPHILS # (AUTO) 5.6 10^3/uL (1.8-7.8); NEUTROPHILS % (AUTO) 67 % (42-75); PLATELET COUNT 306 10^3/uL (130-400); WHITE BLOOD COUNT 8.4 10^3/uL (4.3-11.0)
[2022-11-09 04:45] LABS: ALBUMIN 3.5 GM/DL (3.2-4.5); POTASSIUM 3.7 MMOL/L (3.6-5.0)
[2022-11-09 04:46] LABS: CALCIUM 8.8 MG/DL (8.5-10.1)
[2022-11-09 04:47] LABS: TOTAL PROTEIN 6.2 GM/DL (6.4-8.2)
[2022-11-09 04:49] LABS: BILIRUBIN,TOTAL 0.8 MG/DL (0.1-1.0)
[2022-11-09 04:51] LABS: CREATININE SERUM 0.72 MG/DL (0.60-1.30)
[2022-11-09] MEDS: inSUlin ASPART (NovoLOG) 1 UNIT/0.01 ML (CHARGE PER UNIT) SC SCH (05:27)
[2022-11-09 05:35] VITALS: BP 150/93
[2022-11-09 07:42] VITALS: BP 154/82
--- NOTE | 2022-11-09 07:58 | Consultation-Cardiology ---
HPI-Cardiology Cardiology Consultation: Date of Consultation 11/09/22 Date of Admission 11-08-22 Attending Physician Cony Poole DO Admitting Physician Admitting Physician: Melina Beauchamp DO Attending Physician: Melina Beauchamp DO Consulting Physician Roxy Lopez MD [id number] Hx Patient Social History Alcohol Use?: No Pt feels they are or have been: No Immunizations Up To Date Tetanus Booster (TDap): Unknown Date of Pneumonia Vaccine: Jan 13, 2016 Date of Influenza Vaccine: May 28, 2021 Past Medical History PMH As described under Assessment. Family Medical History Family History: Asthma Colon cancer Deafness or hearing loss Diabetes mellitus Hypertension Neoplasm Thyroid disease Allergies and Home Medications Allergies Coded Allergies: codeine (Unverified Allergy, Mild, Vomiting, 02/18/22) adhesive tape (Unverified Allergy, Unknown, 02/18/22) amoxicillin (Unverified Allergy, Unknown, 02/18/22) Patient Home Medication List Acetaminophen (Tylenol) 325 Mg Tablet, 325 MG PO Q6H PRN for PAIN-MILD (1-4), (Reported) Entered as Reported by: BROOKLYNN MAURICE on 05/28/211030 Last Action: Reviewed Aspirin (Aspirin EC) 81 Mg Tablet.dr, 81 MG PO HS, (Reported) Entered as Reported by: BROOKLYNN MAURICE on 05/28/211030 Last Action: Reviewed Atorvastatin Calcium (Atorvastatin Calcium) 20 Mg Tablet, 20 MG PO HS, (Reported) Entered as Reported by: BROOKLYNN MAURICE on 11/09/221038 Last Action: Reviewed Bifidobacterium Infantis (Align) 10.5 Mg (10 Million Cell) Tab.chew, 10.5 MG PO HS, (Reported) Entered as Reported by: BROOKLYNN MAURICE on 11/09/221038 Last Action: Reviewed Cholecalciferol (Vitamin D3) (Vitamin D3) 25 Mcg (1000 Unit) Capsule, 25 MCG PO 1800, (Reported) Entered as Reported by: BROOKLYNN MAURICE on 05/28/211030 Last Action: Reviewed Cholecalciferol (Vitamin D3) (Vitamin D3) 50 Mcg (2000 Unit) Capsule, 50 MCG PO DAILY, (Reported) Entered as Reported by: BROOKLYNN MAURICE on 11/09/221038 Last Action: Reviewed Cyanocobalamin (Vitamin B-12) (Vitamin B-12) 500 Mcg Tablet, 500 MCG PO DAILY, (Reported) Entered as Reported by: BROOKLYNN MAURICE on 05/28/21 103 Last Action: Reviewed Diltiazem HCl (Diltiazem 24Hr ER) 120 Mg Cap.er.24h, 120 MG PO DAILY Prescribed by: MELINA BEAUCHAMP on 11/09/22 1407 Fexofenadine HCl (Janette Allergy) 180 Mg Tablet, 180 MG PO DAILY, (Reported) Entered as Reported by: BROOKLYNN MAURICE on 11/09/221038 Last Action: Reviewed Hydralazine HCl (Hydralazine HCl) 10 Mg Tablet, 10 MG PO BID Prescribed by: BRITTANEY PERRIN on 11/09/22 1535 Levothyroxine Sodium (Synthroid) 75 Mcg Tablet, 75 MCG PO MO,WE,FR, (Reported) Entered as Reported by: BROOKLYNN MAURICE on 11/09/221038 Last Action: Reviewed Levothyroxine Sodium (Synthroid) 88 Mcg Tablet, 88 MCG PO CHAVEZ,TU,TH,SA, (Reported) Entered as Reported by: BROOKLYNN MAURICE on 11/09/221038 Last Action: Reviewed Losartan Potassium (Losartan Potassium) 50 Mg Tablet, 50 MG PO BID, (Reported) Entered as Reported by: BROOKLYNN MAURICE on 11/09/221038 Last Action: Reviewed Rivaroxaban (Xarelto Tablet) 15 Mg Tablet, 15 MG PO 1800 W/MEAL, (Reported) Entered as Reported by: BROOKLYNN MAURICE on 11/09/221038 Last Action: Reviewed Sertraline HCl (Sertraline HCl) 25 Mg Tablet, 12.5 MG PO HS, (Reported) Entered as Reported by: BROOKLYNN MAURICE on 11/09/221038 Last Action: Reviewed Discontinued Medications Carboxymethyl/Gly/Poly80/Pf (Refresh Optive Abdiaziz-3 Drops) 1 Each [place], 1 DROP OU TID, (Reported) Discontinued Reason: No Longer Taking Entered as Reported by: BROOKLYNN MAURICE on 05/28/21 103 Last Action: Discontinued Carboxymethylcellulose Sodium (Refresh Liquigel) 15 Ml Drp.lq.gel, 1 DROP OU BID, (Reported) Discontinued Reason: No Longer Taking Entered as Reported by: BROOKLYNN MAURICE on 05/28/21 1031 Last Action: Discontinued Cetirizine HCl (Cetirizine HCl) 10 Mg Tablet, 10 MG PO DAILY, (Reported) Discontinued Reason: No Longer Taking Entered as Reported by: BROOKLYNN MAURICE on 05/28/21 103 Last Action: Discontinued Cholecalciferol (Vitamin D3) (Vitamin D3) 25 Mcg Capsule, 25 MCG PO HS, (Reported) Discontinued Reason: Prescription changed Entered as Reported by: BROOKLYNN MAURICE on 05/28/21 1031 Diltiazem HCl (Diltiazem 24Hr ER) 300 Mg Cap.er.24h, 300 MG PO DAILY@0900 Discontinued Reason: No Longer Taking Prescribed by: MELINA BEAUCHAMP on 06/10/211000 Last Action: Discontinued Docusate Sodium (Docusate Sodium) 100 Mg Tablet, 100 MG PO HS, (Reported) Discontinued Reason: No Longer Taking Entered as Reported by: BROOKLYNN MAURICE on 05/28/21 103 Last Action: Discontinued Doxazosin Mesylate (Doxazosin Mesylate) 1 Mg Tablet, 1 MG PO BID, (Reported) Discontinued Reason: No Longer Taking Entered as Reported by: BROOKLYNN MAURICE on 05/28/21 103 Last Action: Discontinued Fluticasone Propionate (Flonase Allergy Relief) 9.9 Ml [place].susp, 2 SPRAY NSEACH HS PRN for ALLERGY SYMPTOMS, (Reported) Discontinued Reason: No Longer Taking Entered as Reported by: BROOKLYNN MAURICE on 05/28/21 1031 Last Action: Discontinued Fluticasone/Salmeterol (Fluticasone-Salmeterol 113-14) 1 Each Aer.pow.ba, 0 EACH IH DAILY@0800 Discontinued Reason: No Longer Taking Prescribed by: MELINA BEAUCHAMP on 06/10/211000 Last Action: Discontinued Furosemide (Furosemide) 40 Mg Tablet, 40 MG PO DAILY Discontinued Reason: No Longer Taking Prescribed by: MELINA BEAUCHAMP on 06/10/211000 Last Action: Discontinued Gabapentin (Gabapentin) 100 Mg Capsule, 200 MG PO HS Discontinued Reason: No Longer Taking Prescribed by: MELINA BEAUCHAMP on 06/10/211000 Last Action: Discontinued Guaifenesin (Mucinex) 600 Mg Tab.er.12h, 600 MG PO BID Discontinued Reason: No Longer Taking Prescribed by: MELINA BEAUCHAMP on 06/10/211000 Last Action: Discontinued Lactobacillus Rhamnosus GG (Culturelle) 1 Each Capsule, 1 EACH PO HS, (Reported) Discontinued Reason: No Longer Taking Entered as Reported by: BROOKLYNN MAURICE on 05/28/21 103 Last Action: Discontinued Levothyroxine Sodium (Levothyroxine Sodium) 88 Mcg Tablet, 88 MCG PO DAILY, (Reported) Discontinued Reason: No Longer Taking Entered as Reported by: BROOKLYNN MAURICE on 05/28/21 103 Last Action: Discontinued Losartan Potassium (Losartan Potassium) 25 Mg Tablet, 25 MG PO DAILY Discontinued Reason: No Longer Taking Prescribed by: MELINA BEAUCHAMP on 06/10/211000 Last Action: Discontinued Magnesium Oxide (Magnesium) 400 Mg Tablet, 400 MG PO Q48H, (Reported) Discontinued Reason: No Longer Taking Entered as Reported by: BROOKLYNN MAURICE on 05/28/21 103 Last Action: Discontinued Menthol (Biofreeze) 118 Ml Gel..ml., 1 APPLIC TP TID PRN for ARTHRITIS, (Reported) Discontinued Reason: No Longer Taking Entered as Reported by: BROOKLYNN MAURICE on 05/28/21 103 Last Action: Discontinued Potassium Chloride (Potassium Chloride) 8 Meq Capsule.er, 16 MEQ PO BID WITH MEALS Discontinued Reason: No Longer Taking Prescribed by: MELINA BEAUCHAMP on 06/10/211000 Last Action: Discontinued Prednisone (Prednisone) 20 Mg Tab, 20 MG PO DAILY@0700 Discontinued Reason: No Longer Taking Prescribed by: MELINA BEAUCHAMP on 06/10/211000 Last Action: Discontinued Sodium Chloride/Aloe Vera ([place] Saline Nasal Gel) 14.1 Gm Gel..gram., 1 APPLIC NS BID PRN for ALLERGY SYMPTOMS, (Reported) Discontinued Reason: No Longer Taking Entered as Reported by: BROOKLYNN MAURICE on 05/28/21 103 Last Action: Discontinued Tramadol HCl (Tramadol HCl) 50 Mg Tablet, 50 MG PO TID PRN for PAIN-MODERATE (5- 7) Discontinued Reason: No Longer Taking Prescribed by: MELINA BEAUCHAMP on 06/10/21 1002 Last Action: Discontinued [Magic Mouthwash] LIQUID, 15 ML QID PRN for MOUTH PAIN, (Reported) Discontinued Reason: No Longer Taking Entered as Reported by: BROOKLYNN MAURICE on 05/28/21 1031 Last Action: Discontinued Physical Exam-Cardiology Physical Exam Vital Signs/I&O 11/10/22 00:00 Intake Total 240 ml Balance 240 ml Capillary Refill : Less Than 3 Seconds Data Review Labs Laboratory Tests 11/09/22 10:36: Glucometer 153H Radiology NAME: LATRICE LOZANO [facility] REC#: [id number] PT STATUS: REG ER : 1940 PHYSICIAN: REGINA CARBONE DO ADMIT DATE: 11/08/22/ER Signed Date of Exam:11/08/22 CHEST 1 VIEW, AP/PA ONLY EXAMINATION: Chest radiograph, portable AP view. DATE: 11/08/2022 7:04 PM INDICATION: 82-year-old female, syncope, weakness. COMPARISON: May 30, 2021. FINDINGS: Heart size and mediastinal contours are unchanged. There is no identified pneumothorax. There is no identified large pleural effusion. There is no identified interval focal airspace consolidation. There are somewhat coarse interstitial opacities likely reflecting chronic lung changes. IMPRESSION: 1. Chronic lung changes without evidence of an interval acute cardiopulmonary abnormality. Dictated by: Dictated on workstation # [id number] Dict: 11/08/221904 Trans: 11/08/221943 CVB [id number] Interpreted by: MICHAELLE FISHER MD Electronically signed by: MICHAELLE FISHER MD 11/08/221943 A/P-Cardiology Assessment/Admission Diagnosis Non-specific, bilateral shoulder discomfort - MPI of 09-22-2022 showed no evidence of ischemia or infarction. No regional wall motion abnormality. MPI 56% Gen malaise - undetermined etiology MPI of 09-24-20 showed no evidence of ischemia or infarction. LVEF 57% SSS and PAF: - s/p unsuccessful cardioversion on 12-04-[address] Garnica - s/p successful cardioversion on 12-14-[address] Garnica - Event monitor for a month which was completed on 02/13/[address] Garnica which did not show any Afib - S/P ILR implant 03-01-[address] Garnica - continuing intermittent PAF with RVR on ILR - OAC with Xarelto - this is being followed by Dr. 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 Garnica showed LVEF 55-65%. LA mildly dilated. Mod to severe MR. PASP 40-45 mmHg - Echocardiogram of 09-02-20 showed LVEF 55-60%. Grade 1 diastolic dysfunction. Mild MR. AoV sclerosis with mild regurg. PASP 40-45 mmHg COPD with nocturnal hypoxemia : - managed by her PCP Tobacco use: - quit smoking when she was in her 40's Mild pulmonary hypertension: - PASP 40-45 mmHg per echo of 09-02-20 - sleep studies by Dr. Brown on 02-14-21 did not indicate sleep apnea - a-fib see n during the test Chronic, bilateral leg swelling, likely related to venous insuff Chronic scoliosis and degenerative cervical spinal disease (chronically stiff neck and shoulders) - managed by her pcp BRITTANEY PERRIN Nov 09, 2022 07:58
[2022-11-09] MEDS: DOCUSATE SODIUM 100 MG (COLACE) CAP PO SCH (08:30)
[2022-11-09] MEDS: APIXABAN 5 MG (ELIQUIS) TABLET PO SCH (08:30)
[2022-11-09] MEDS: SENNOSIDES 8.6 MG (SENOKOT) TAB PO SCH (08:31)
[2022-11-09] MEDS ORDERED: dilTIAZem120 MG (CARDIZEM CD) CAP PO SCH (09:00)
--- NOTE | 2022-11-09 09:28 | History & Physical ---
History of Present Illness HPI/Chief Complaint Chief complaint: Cardiac pauses on loop recorder with syncopal episodes and severe left leg pain from fall and hematoma on anticoagulation This is an 82-year-old female who presented to the ER with weakness and syncopal episode the second in almost 2 weeks with loop recorder interrogated revealing cardiac pauses who was admitted to the ICU and closely monitored with cardiology evaluation. Apparently she had fallen on her left leg and being on anticoagulation she sustained a major hematoma and really cannot walk on the leg. The decision was made for telemetry monitoring and send down to inpatient rehab for further evaluation due to cardiac arrhythmia may very well need a pacemaker and defined as a congestive heart failure episode. Source: patient, RN/MD, old records Exam Limitations: no limitations Date Seen 11/09/22 Time Seen by a Provider: 09:00 Attending Physician Cony Poole DO PCP Admitting Physician: Melina Benjamin DO Attending Physician: Melina Benjamin DO Referring Physician Date of Admission Nov 08, 2022 at 20:07 Home Medications & Allergies Home Medications Reviewed patient Home Medication Reconciliation performed by pharmacy medication reconciliations automated equipment engineer technician and/or nursing. Patients Allergies have been reviewed. Allergies Allergies Coded Allergies codeine (Unverified Allergy, Mild, Vomiting, 02/18/22) adhesive tape (Unverified Allergy, Unknown, 02/18/22) amoxicillin (Unverified Allergy, Unknown, 02/18/22) Past Dbshbdr-Nqjwww-Camgld Hx Past Med/Social Hx: Reviewed Nursing Past Med/Soc Hx, Reviewed and Corrections made Patient Social History Marrital Status: single Employed/Student: retired Alcohol Use: Denies Use Smoking Status: Never a Smoker Former Smoker, Quit: Nov 26, 1984 Recent Hopitalizations: No Immunizations Up To Date Tetanus Booster (TDap): Unknown Date of Pneumonia Vaccine: Jan 13, 2016 Date of Influenza Vaccine: May 28, 2021 Seasonal Allergies Seasonal Allergies: No Past Medical History Surgeries: Vascular Surgery Currently Using CPAP: No Currently Using BIPAP: No Cardiac: Atrial Fibrillation, Chronic Edema/Swelling, Hypertension Reproductive: No Genitourinary: Kidney Infection, Bladder Infection Musculoskeletal: Scoliosis Endocrine: Hypothyroidsim HEENT: Cataract Loss of Vision: Bilateral Hearing Impairment: Hard of Hearing Psychosocial: Sleep Difficulties, Anxiety History of Blood Disorders: No Adverse Reaction to Blood Drake: No Family History Asthma Colon cancer Deafness or hearing loss Diabetes mellitus Hypertension Neoplasm Thyroid disease Review of Systems Constitutional: see HPI, dizziness, malaise, weakness EENTM: no symptoms reported Respiratory: no symptoms reported Cardiovascular: no symptoms reported Gastrointestinal: no symptoms reported Genitourinary: no symptoms reported Musculoskeletal: back pain, joint pain, neck pain Skin: no symptoms reported Psychiatric/Neurological: Anxiety, Depressed All Other Systems Reviewed Negative Unless Noted: Yes Physical Exam Physical Exam Vital Signs Vital Signs - First Documented 11/08/22 11/08/22 11/09/22 17:35 20:27 07:54 Temp 36.3 Pulse 94 Resp 18 B/P (MAP) 138/75 (96) Pulse Ox 98 O2 Delivery Room Air O2 Flow Rate 0.00 Capillary Refill : Less Than 3 Seconds Height, Weight, BMI Height: 5'3.50" Weight: 157lbs. 0.9oz. 71.854411kg; 442.96 BMI Method: General Appearance: No Apparent Distress, WD/WN, Chronically ill HEENT: Normal ENT Inspection, Pharynx Normal Neck: Full Range of Motion, Normal Inspection, Non Tender, Supple Respiratory: Chest Non Tender, Lungs Clear, Normal Breath Sounds, No Accessory Muscle Use, No Respiratory Distress Cardiovascular: No Murmur, Normal Peripheral Pulses, Irregularly Irregular Gastrointestinal: Normal Bowel Sounds, No Organomegaly, No Pulsatile Mass, Non Tender, Soft Extremity: Normal Capillary Refill, Normal Inspection, Normal Range of Motion, Non Tender, No Calf Tenderness, No Pedal Edema Neurologic/Psychiatric: Alert, Oriented x3, No Motor/Sensory Deficits, strategy analyst II- XII Norm as Tested Skin: Normal Color, Warm/Dry Results Results/Procedures Labs Laboratory Tests 11/08/22 17:55 11/09/22 04:02 Patient resulted labs reviewed. Assessment/Plan Admission Diagnosis Assessment: Syncopal episode with cardiac pauses on loop recorder Nonvolume overload congestive heart failure defined by cardiac arrhythmia Falls Left leg pain from hematoma from fall on anticoagulation Hypertension History of UTIs Plan: Moved to inpatient rehab Aggressive rehab with PT and OT indicated Appreciate cardiology Telemetry Admission Status: Observation MELINA BENJAMIN DO Nov 09, 2022 09:28
[2022-11-09] MEDS ORDERED: MTP100TCR PO (10:39)
[2022-11-09] MEDS ORDERED: LEVO75TA PO (10:39)
[2022-11-09] MEDS ORDERED: CHOL20002 PO (10:39)
[2022-11-09] MEDS ORDERED: FEXO180T84 PO (10:39)
[2022-11-09] MEDS ORDERED: BIFI10.5 PO (10:39)
[2022-11-09] MEDS ORDERED: LEVO88TA2 PO (10:39)
[2022-11-09] MEDS ORDERED: LOSA50TA63 PO (10:39)
[2022-11-09] MEDS ORDERED: RIVA15TA2 PO (10:39)
[2022-11-09] MEDS ORDERED: ATOR20TA66 PO (10:39)
[2022-11-09] MEDS ORDERED: SERT-412 PO (10:39)
[2022-11-09] MEDS ORDERED: HYDR-3922 PO ×2 (10:39→15:35)
--- NOTE | 2022-11-09 11:41 | Diagnostic Imaging Report ---
PROCEDURE: CT head without contrast. TECHNIQUE: Multiple contiguous axial images were obtained through the brain without the use of intravenous contrast. Auto Exposure Controls were utilized during the CT exam to meet ALARA standards for radiation dose reduction. INDICATION: Anticoagulated patient sustained fall. Compared with exam 02/18/2022. FINDINGS: Chronic atrophy and periventricular white matter disease stable from prior. Intracranial atherosclerotic vascular calcifications stable and chronic. There is no hemorrhage and no abnormal extra-axial fluid collection. No calvarial fracture deformity. No pneumocephalus. No hemo-sinus. IMPRESSION: Stable chronic senescent findings with no hemorrhage, fracture or other acute abnormalities. Dictated by: Dictated on workstation # [id number]
[2022-11-09 12:00] VITALS: BP 134/64
--- NOTE | 2022-11-09 12:00 | Physical Therapy Evaluation ---
PT Evaluation-General Medical Diagnosis Admission Date Nov 08, 2022 at 20:07 Medical Diagnosis: near syncope/paroxymal A-fib Onset Date: Nov 08, 2022 Therapy Diagnosis Therapy Diagnosis: debility/weakness Height/Weight Height (Feet): 5 Height (Inches): 3.50 Weight (Pounds): 157 Weight (Ounces): 0.9 Precautions Precautions/Isolations: Fall Prevention, Standard Precautions Referral Physician: Cassidy Reason for Referral: Evaluation/Treatment Medical History Pertinent Medical History: Atrial Fib, COPD, Heart Failure, HTN, Hypothroidism Additional Medical History scoliosis Current History EMS to home secondary to "tunnel" vision Reviewed History: Yes Social History Home: Single Level Current Living Status: Alone Entry Into Home: Stairs With Railing PT Steps Into Home: 3 Prior Prior Level of Function SCALE: Activities may be completed with or without assistive devices. 4-Rdkffgviie-eakdbke completes the activity by him/herself with no assistance from a helper. 5-Set-up or Clean-up Assistance-helper sets up or cleans up; patient completes activity. [place] assists only prior to or following the activity. 4-Supervision or Touching Assistance-helper provides verbal cues and/or touching/steadying and/or contact guard assistance as patient completes activity. Assistance may be provided throughout the activity or intermittently. 3-Partial/Moderate Assistance-helper does LESS THAN HALF the effort. [place] lifts, holds or supports trunk or limbs, but provides less than half the effort. 2-Substantial/Maximal Assistance-helper does MORE THAN HALF the effort. [place] lifts or holds trunk or limbs and provides more than half the effort. 7-Mnwzodurv-iikhsl does ALL the effort. Patient does none of the effort to complete the activity. Or, the assistance of 2 or more helpers is required for the patient to complete the activity. If activity was not attempted, code reason: 7-Patient Refused. 9-Not Applicable-not attempted and the patient did not perform the activity before the current illness, exacerbation or injury. 10-Not Attempted due to Environmental Limitations-(lack of equipment, weather restraints, etc.). 88-Not Attempted due to Medical Conditions or Safety Concerns. Bed Mobility: 6 Transfers (B,C,W/C): 6 Gait: 6 Stairs: 6 Indoor Mobility (Ambulation): Independent Stairs: Independent Prior Devices Use: None PT Evaluation-Current Subjective Patient agrees to PT. She report she is feeling "shaky". Pain Numeric Pain Scale: 5-Moderate Pain Location: Left Location Body Site: Knee Pain Description: Acute Comment: from a recent fall ~ 1 week ago Objective Patient Orientation: Normal For Age ROM/Strength ROM Lower Extremities bilateral LE WFL Strength Lower Extremities 3+/5 grossly bilateral LE all planes Integumentary/Posture Integumentary refer to nursing notes Bowel Incontinence: No Bladder Incontinence: No Posture scoliosis/kyphotic Neuromuscular (Tone, Coordination, Reflexes) noted "shaky" with all mobility Sensory Vision: Wears Glasses Hearing: Functional Sensation Right Lower Extremit: Impaired Sensation Left Lower Extremity: Impaired Transfers Lying to Sitting/Side of Bed(Q: 4 Sit to Stand (QC): 4 Chair/Ivr-zj-Qjxcj Xfer(QC): 4 CGA for safety Gait Mode of Locomotion: Walk Anticipated Mode of Locomotion: Walk Walk 10 feet (QC): 3 Walk 50 ft with 2 Turns(QC): 3 Walk 150 ft (QC): 3 Distance: 150' x 2 Gait Assistive Device: FWW Comments/Gait Description slow, slightly unsteady/multiple standing recovery periods due to diminished functional endurance Stairs #of Steps: 4 1 Step (curb) (QC): 3 4 Steps (QC): 3 12 Steps (QC): 88 Balance Sitting Static: Normal Sitting Dynamic: Normal Standing Static: Fair Standing Dynamic: Fair Assessment/Needs Patient will benefit from skilled PT to address functional strength and mobility to improve current LOF. Patient displays diminished functional endurance with all mobility and is requiring to utilize AD for safety. Rehab Potential: Fair PT Longterm Goals High Raw Sugar Boiler Goals PT Longterm Goals Time Frame: Nov 28, 2022 Roll Left & Right (QC): 6 Sit to Lying (QC): 6 Lying-Sitting on Side/Bed(QC): 6 Sit to Stand (QC): 6 Chair/Hqx-ky-Ghrcf Xfer(QC): 6 Toilet Transfer (QC): 6 Walk 10 feet (QC): 6 Walk 50ft with 2 Turns (QC): 6 Walk 150 ft (QC): 6 1 Step (curb) (QC): 6 4 Steps (QC): 6 PT Plan Problem List Problem List: Activity Tolerance, Functional Strength, Safety, Balance, Gait, Transfer, Bed Mobility Treatment/Plan Treatment Plan: Continue Plan of Care Treatment Plan: Bed Mobility, Education, Functional Activity Samy, Functional Strength, Gait, Safety, Therapeutic Exercise, Transfers Treatment Duration: Nov 28, 2022 Frequency: 6 times per week Estimated Hrs Per Day: .25 hour per day Patient and/or Family Agrees t: Yes Time Time In: 1130 Time Out: 1145 DATE: Nov 09, 2022 Total Billed Treatment Time: 15 [facility] JEWELL PT Nov 09, 2022 12:00
--- NOTE | 2022-11-09 13:35 | Discharge Summary ---
Diagnosis/Chief Complaint Date of Admission Nov 08, 2022 at 20:07 Date of Discharge Discharge Date: Nov 09, 2022 Discharge Diagnosis Cardiac syncope Atrial fibrillation May need pacemaker Hypertension Fall Discharge Summary Discharge Physical Examination Allergies: Coded Allergies: codeine (Unverified Allergy, Mild, Vomiting, 02/18/22) adhesive tape (Unverified Allergy, Unknown, 02/18/22) amoxicillin (Unverified Allergy, Unknown, 02/18/22) Vitals & I&Os Vital Signs Date Time Temp Pulse Resp B/P (MAP) Pulse Ox O2 Delivery O2 Flow Rate FiO2 11/09/22 16:12 36.6 61 18 134/64 96 Room Air 0.00 Hospital Course Was the Problem List Reviewed?: Yes See HPI of H&P Labs (last 24 hrs) Laboratory Tests 11/08/22 17:55: White Blood Count 7.0, Red Blood Count 4.67, Hemoglobin 14.8, Hematocrit 44, Mean Corpuscular Volume 93, Mean Corpuscular Hemoglobin 32, Mean Corpuscular Hemoglobin Concent 34, Red Cell Distribution Width 12.3, Platelet Count 379, Mean Platelet Volume 9.0, Immature Granulocyte % (Auto) 0, Neutrophils (%) (Auto) 74, Lymphocytes (%) (Auto) 17, Monocytes (%) (Auto) 6, Eosinophils (%) (Auto) 2, Basophils (%) (Auto) 2, Neutrophils # (Auto) 5.1, Lymphocytes # (Auto) 1.2, Monocytes # (Auto) 0.4, Eosinophils # (Auto) 0.1, Basophils # (Auto) 0.1, Immature Granulocyte # (Auto) 0.0, Sodium Level 134L, Potassium Level 3.9, Chloride Level 97L, Carbon Dioxide Level 25, Anion Gap 12, Blood Urea Nitrogen 15, Creatinine 0.99, Estimat Glomerular Filtration Rate 57, BUN/Creatinine Ratio 15, Glucose Level 156H, Calcium Level 10.2H, Corrected Calcium 10.0, Magnesium Level 2.0, Total Bilirubin 0.9, Aspartate Amino Transf (AST/SGOT) 20, Alanine Aminotransferase (ALT/SGPT) 19, Alkaline Phosphatase 91, Troponin I < 0.028, Total Protein 8.0, Albumin 4.3 11/08/22 21:06: Glucometer 103 11/09/22 04:02: White Blood Count 8.4, Red Blood Count 3.93, Hemoglobin 12.4, Hematocrit 36, Mean Corpuscular Volume 92, Mean Corpuscular Hemoglobin 32, Mean Corpuscular Hemoglobin Concent 34, Red Cell Distribution Width 12.2, Platelet Count 306, Mean Platelet Volume 8.7L, Immature Granulocyte % (Auto) 0, Neutrophils (%) (Auto) 67, Lymphocytes (%) (Auto) 22, Monocytes (%) (Auto) 8, Eosinophils (%) (Auto) 2, Basophils (%) (Auto) 1, Neutrophils # (Auto) 5.6, Lymphocytes # (Auto) 1.8, Monocytes # (Auto) 0.7, Eosinophils # (Auto) 0.2, Basophils # (Auto) 0.1, Immature Granulocyte # (Auto) 0.0, Sodium Level 133L, Potassium Level 3.7, Chloride Level 101, Carbon Dioxide Level 22, Anion Gap 10, Blood Urea Nitrogen 12, Creatinine 0.72, Estimat Glomerular Filtration Rate 83, BUN/Creatinine Ratio 17, Glucose Level 93, Calcium Level 8.8, Corrected Calcium 9.2, Total Bilirubin 0.8, Aspartate Amino Transf (AST/SGOT) 16, Alanine Aminotransferase (ALT/SGPT) 15, Alkaline Phosphatase 72, Total Protein 6.2L, Albumin 3.5 11/09/22 10:36: Glucometer 153H Pending Labs Laboratory Tests 11/08/22 17:55: White Blood Count 7.0, Red Blood Count 4.67, Hemoglobin 14.8, Hematocrit 44, Mean Corpuscular Volume 93, Mean Corpuscular Hemoglobin 32, Mean Corpuscular Hemoglobin Concent 34, Red Cell Distribution Width 12.3, Platelet Count 379, Mean Platelet Volume 9.0, Immature Granulocyte % (Auto) 0, Neutrophils (%) (Auto) 74, Lymphocytes (%) (Auto) 17, Monocytes (%) (Auto) 6, Eosinophils (%) (Auto) 2, Basophils (%) (Auto) 2, Neutrophils # (Auto) 5.1, Lymphocytes # (Auto) 1.2, Monocytes # (Auto) 0.4, Eosinophils # (Auto) 0.1, Basophils # (Auto) 0.1, Immature Granulocyte # (Auto) 0.0, Sodium Level 134, Potassium Level 3.9, Chloride Level 97, Carbon Dioxide Level 25, Anion Gap 12, Blood Urea Nitrogen 15, Creatinine 0.99, Estimat Glomerular Filtration Rate 57, BUN/Creatinine Ratio 15, Glucose Level 156, Calcium Level 10.2, Corrected Calcium 10.0, Magnesium Level 2.0, Total Bilirubin 0.9, Aspartate Amino Transf (AST/SGOT) 20, Alanine Aminotransferase (ALT/SGPT) 19, Alkaline Phosphatase 91, Troponin I < 0.028, Total Protein 8.0, Albumin 4.3 11/08/22 21:06: Glucometer 103 11/09/22 04:02: White Blood Count 8.4, Red Blood Count 3.93, Hemoglobin 12.4, Hematocrit 36, Mean Corpuscular Volume 92, Mean Corpuscular Hemoglobin 32, Mean Corpuscular Hemoglobin Concent 34, Red Cell Distribution Width 12.2, Platelet Count 306, Mean Platelet Volume 8.7, Immature Granulocyte % (Auto) 0, Neutrophils (%) (Auto) 67, Lymphocytes (%) (Auto) 22, Monocytes (%) (Auto) 8, Eosinophils (%) (Auto) 2, Basophils (%) (Auto) 1, Neutrophils # (Auto) 5.6, Lymphocytes # (Auto) 1.8, Monocytes # (Auto) 0.7, Eosinophils # (Auto) 0.2, Basophils # (Auto) 0.1, Immature Granulocyte # (Auto) 0.0, Sodium Level 133, Potassium Level 3.7, Chloride Level 101, Carbon Dioxide Level 22, Anion Gap 10, Blood Urea Nitrogen 12, Creatinine 0.72, Estimat Glomerular Filtration Rate 83, BUN/Creatinine Ratio 17, Glucose Level 93, Calcium Level 8.8, Corrected Calcium 9.2, Total Bilirubin 0.8, Aspartate Amino Transf (AST/SGOT) 16, Alanine Aminotransferase (ALT/SGPT) 15, Alkaline Phosphatase 72, Total Protein 6.2, Albumin 3.5 11/09/22 10:36: Glucometer 153 Discharge Home Medications: Active Scripts Active Hydralazine HCl 10 Mg Tablet 10 Mg PO BID Only take twice a day for systolic blood pressure greater than 190 mmHg Diltiazem 24Hr ER (Diltiazem HCl) 120 Mg Cap.er.24h 120 Mg PO DAILY 30 Days Reported Janette Allergy (Fexofenadine HCl) 180 Mg Tablet 180 Mg PO DAILY Align (Bifidobacterium Infantis) 10.5 Mg (10 Million Cell) Tab.chew 10.5 Mg PO HS Xarelto Tablet (Rivaroxaban) 15 Mg Tablet 15 Mg PO 1800 W/MEAL Synthroid (Levothyroxine Sodium) 88 Mcg Tablet 88 Mcg PO CHAVEZ,,, Losartan Potassium 50 Mg Tablet 50 Mg PO BID Sertraline HCl 25 Mg Tablet 12.5 Mg PO HS TAKES OF A 25MG TAB Synthroid (Levothyroxine Sodium) 75 Mcg Tablet 75 Mcg PO MO,,FR Atorvastatin Calcium 20 Mg Tablet 20 Mg PO HS Vitamin D3 (Cholecalciferol (Vitamin D3)) 50 Mcg (2000 Unit) Capsule 50 Mcg PO DAILY Aspirin EC (Aspirin) 81 Mg Tablet.dr 81 Mg PO HS Vitamin B-12 (Cyanocobalamin (Vitamin B-12)) 500 Mcg Tablet 500 Mcg PO DAILY Tylenol (Acetaminophen) 325 Mg Tablet 325 Mg PO Q6H PRN Vitamin D3 (Cholecalciferol (Vitamin D3)) 25 Mcg (1000 Unit) Capsule 25 Mcg PO 1800 Instructions to patient/family Please see electronic discharge instructions given to patient. ELVA BEAUCHAMP DO Nov 09, 2022 13:35
[2022-11-09] MEDS ORDERED: DILT-27 PO (14:07)
--- NOTE | 2022-11-09 15:13 | Occ Therapy Progress Note ---
Therapy Progress Note ACUTE OT order received, Patient discharged from acute care hospital stay and admitting to ARU . Acute OT evaluation not performed FELICIANO JOHNSON OT Nov 09, 2022 15:13
--- NOTE | 2022-11-09 15:55 | Diagnostic Imaging Report ---
PROCEDURE: US carotid duplex bilateral. TECHNIQUE: Multiple Real-time grayscale images were obtained over the carotid arteries in various projections, bilaterally. Additional spectral analysis and color Doppler duplex images were also obtained. INDICATION: Coronary artery disease, history of right-sided endarterectomy. COMPARISON: 03/04/2021. FINDINGS: Color images demonstrate scattered mild to moderate atherosclerotic plaque throughout the bilateral common carotid arteries, carotid bulbs, and internal and external carotid arteries. On the right, there is elevated velocity at 104 cm/s with an ICA/CCA ratio of 1.92. This suggests an approximately 50% narrowing. On the left, the maximum velocity is 123 cm/s with an ICA/CCA ratio of 1.15. This does suggest a less than 50% narrowing. Bilateral external carotid arteries are patent. The vertebral arteries demonstrate antegrade directional flow. There is noted arrhythmia throughout this examination. IMPRESSION: 1. Moderate atherosclerotic plaque in the bilateral carotid arteries, right greater than left. On the right, there is suggestion of an approximately 50% narrowing of the right internal carotid artery. On the left, there is slightly less than 50% narrowing. 2. There is note made of cardiac arrhythmia throughout the examination. Parameters based on the consensus panel Mendoza-Scale and Doppler ultrasound criteria published April 2003, Radiology, Volume 229. DOPPLER (peak systolic velocity M/S Right Left CCA 0.54 1.07 ICA Proximal 1.04 1.23 ICA Mid 0.93 0.93 ICA Distal 0.83 0.74 RATIO 1.92 1.15 ECA 1.16 0.67 VERT 0.41 0.46 Dictated by: Dictated on workstation # [id number]
[2022-11-09 16:12] VITALS: BP 134/64
--- NOTE | 2022-11-09 18:50 | Consultation-Cardiology ---
HPI-Cardiology Cardiology Consultation: Date of Consultation 11/09/22 Time Seen by a Provider: 09:00 Date of Admission Attending Physician Cony Poole DO Admitting Physician Admitting Physician: Elva Beauchamp DO Attending Physician: Elva Beauchamp DO Consulting Physician TINA BERG MD, MA, FACP, FACC, [facility] [place], CCDS Physician requesting consult: Dr Beauchamp HPI: Chief Complaint: Near-syncope 82 yo woman who reports two near-syncopal episodes in the last 1-2 weeks. One occurred in the shower while upright that led to a fall after which she saw her pcp Dr Poole and was not found to have any grievous injury. The other occurred while seated in a chair on 11/09/22. Each was associated with a feeling dizziness and narrowing of vision. The episode yesterday lasted about an hour or so. States a nurse friend of hers took her bp during yesterday's episode and found it to be around 80 systolic. Does not report cp or palp or vitaliy syncope. Denies n/v/d. Notes marked variations in bp at home. Monitors bp closely at home and frequently finds it to be high but has some low readings, too (as noted above). Review of Systems-Cardiology Review of Systems Constitutional: malaise; No weight loss, No weight gain Eyes: vision change (during near-syncope episode (some tunneling of the vision)) Ears/Nose/Throat: chronic hearing loss; No ear discharge, No nasal drainage, No recent hearing loss Respiratory: As described under HPI Cardiovascular: As described under HPI Gastrointestinal: No diarrhea, No vomiting Genitourinary: No dysuria, No hematuria, No urine frequency changes Musculoskeletal: back pain (chronic) Skin: No rash, No ulcerations Psychiatric/Neurological: No seizure, No focal weakness, No syncope Hematologic: No bleeding abnormalities UEZ-Yiwocf-Puiini Hx Patient Social History Alcohol Use?: No Pt feels they are or have been: No Immunizations Up To Date Tetanus Booster (TDap): Unknown Date of Pneumonia Vaccine: Jan 13, 2016 Date of Influenza Vaccine: May 28, 2021 Past Medical History PMH As described under Assessment. Family Medical History Family History: Asthma Colon cancer Deafness or hearing loss Diabetes mellitus Hypertension Neoplasm Thyroid disease Allergies and Home Medications Allergies Coded Allergies: codeine (Unverified Allergy, Mild, Vomiting, 02/18/22) adhesive tape (Unverified Allergy, Unknown, 02/18/22) amoxicillin (Unverified Allergy, Unknown, 02/18/22) Patient Home Medication List Home Medication List Reviewed: Yes Acetaminophen (Tylenol) 325 Mg Tablet, 325 MG PO Q6H PRN for PAIN-MILD (1-4), (Reported) Entered as Reported by: BROOKLYNN MAURICE on 05/28/21 1031 Last Action: Reviewed Aspirin (Aspirin EC) 81 Mg Tablet.dr, 81 MG PO HS, (Reported) Entered as Reported by: BROOKLYNN MAURICE on 05/28/21 103 Last Action: Reviewed Atorvastatin Calcium (Atorvastatin Calcium) 20 Mg Tablet, 20 MG PO HS, (Reported) Entered as Reported by: BROOKLYNN MAURICE on 11/09/22 103 Last Action: Reviewed Bifidobacterium Infantis (Align) 10.5 Mg (10 Million Cell) Tab.chew, 10.5 MG PO HS, (Reported) Entered as Reported by: BROOKLYNN MAURICE on 11/09/22 103 Last Action: Reviewed Cholecalciferol (Vitamin D3) (Vitamin D3) 25 Mcg (1000 Unit) Capsule, 25 MCG PO 1800, (Reported) Entered as Reported by: BROOKLYNN MAURICE on 05/28/21 103 Last Action: Reviewed Cholecalciferol (Vitamin D3) (Vitamin D3) 50 Mcg (2000 Unit) Capsule, 50 MCG PO DAILY, (Reported) Entered as Reported by: BROOKLYNN MAURICE on 11/09/22 103 Last Action: Reviewed Cyanocobalamin (Vitamin B-12) (Vitamin B-12) 500 Mcg Tablet, 500 MCG PO DAILY, (Reported) Entered as Reported by: BROOKLYNN MAURICE on 05/28/21 103 Last Action: Reviewed Diltiazem HCl (Diltiazem 24Hr ER) 120 Mg Cap.er.24h, 120 MG PO DAILY Prescribed by: DEAN BROUSSARD on 11/09/22 1407 Fexofenadine HCl (Janette Allergy) 180 Mg Tablet, 180 MG PO DAILY, (Reported) Entered as Reported by: BROOKLYNN MAURICE on 11/09/22 1039 Last Action: Reviewed Hydralazine HCl (Hydralazine HCl) 10 Mg Tablet, 10 MG PO BID Prescribed by: BRITTANEY PERRIN on 11/09/22 1535 Levothyroxine Sodium (Synthroid) 75 Mcg Tablet, 75 MCG PO MO,WE,FR, (Reported) Entered as Reported by: BROOKLYNN MAURICE on 11/09/221038 Last Action: Reviewed Levothyroxine Sodium (Synthroid) 88 Mcg Tablet, 88 MCG PO CHAVEZ,TU,TH,SA, (Reported) Entered as Reported by: BROOKLYNN MAURICE on 11/09/221038 Last Action: Reviewed Losartan Potassium (Losartan Potassium) 50 Mg Tablet, 50 MG PO BID, (Reported) Entered as Reported by: BROOKLYNN MAURICE on 11/09/221038 Last Action: Reviewed Rivaroxaban (Xarelto Tablet) 15 Mg Tablet, 15 MG PO 1800 W/MEAL, (Reported) Entered as Reported by: BROOKLYNN MAURICE on 11/09/221038 Last Action: Reviewed Sertraline HCl (Sertraline HCl) 25 Mg Tablet, 12.5 MG PO HS, (Reported) Entered as Reported by: BROOKLYNN MAURICE on 11/09/221038 Last Action: Reviewed Discontinued Medications Carboxymethyl/Gly/Poly80/Pf (Refresh Optive Abdiaziz-3 Drops) 1 Each Droperette, 1 DROP OU TID, (Reported) Discontinued Reason: No Longer Taking Entered as Reported by: BROOKLYNN MAURICE on 05/28/211030 Last Action: Discontinued Carboxymethylcellulose Sodium (Refresh Liquigel) 15 Ml Drp.lq.gel, 1 DROP OU BID, (Reported) Discontinued Reason: No Longer Taking Entered as Reported by: BROOKLYNN MAURICE on 05/28/21 103 Last Action: Discontinued Cetirizine HCl (Cetirizine HCl) 10 Mg Tablet, 10 MG PO DAILY, (Reported) Discontinued Reason: No Longer Taking Entered as Reported by: BROOKLYNN MAURICE on 05/28/21 103 Last Action: Discontinued Cholecalciferol (Vitamin D3) (Vitamin D3) 25 Mcg Capsule, 25 MCG PO HS, (Reported) Discontinued Reason: Prescription changed Entered as Reported by: BROOKLYNN MAURICE on 05/28/21 103 Diltiazem HCl (Diltiazem 24Hr ER) 300 Mg Cap.er.24h, 300 MG PO DAILY@0900 Discontinued Reason: No Longer Taking Prescribed by: ELVA BEAUCHAMP on 1/4/22 1001 Last Action: Discontinued Docusate Sodium (Docusate Sodium) 100 Mg Tablet, 100 MG PO HS, (Reported) Discontinued Reason: No Longer Taking Entered as Reported by: BROOKLYNN MAURICE on 05/28/211030 Last Action: Discontinued Doxazosin Mesylate (Doxazosin Mesylate) 1 Mg Tablet, 1 MG PO BID, (Reported) Discontinued Reason: No Longer Taking Entered as Reported by: BROOKLYNN MAURICE on 05/28/211030 Last Action: Discontinued Fluticasone Propionate (Flonase Allergy Relief) 9.9 Ml [place].susp, 2 SPRAY NSEACH HS PRN for ALLERGY SYMPTOMS, (Reported) Discontinued Reason: No Longer Taking Entered as Reported by: BROOKLYNN MAURICE on 05/28/211030 Last Action: Discontinued Fluticasone/Salmeterol (Fluticasone-Salmeterol 113-14) 1 Each Aer.pow.ba, 0 EACH IH DAILY@0800 Discontinued Reason: No Longer Taking Prescribed by: ELVA BEAUCHAMP on 06/10/211000 Last Action: Discontinued Furosemide (Furosemide) 40 Mg Tablet, 40 MG PO DAILY Discontinued Reason: No Longer Taking Prescribed by: ELVA BEAUCHAMP on 06/10/211000 Last Action: Discontinued Gabapentin (Gabapentin) 100 Mg Capsule, 200 MG PO HS Discontinued Reason: No Longer Taking Prescribed by: ELVA BEAUCHAMP on 06/10/211000 Last Action: Discontinued Guaifenesin (Mucinex) 600 Mg Tab.er.12h, 600 MG PO BID Discontinued Reason: No Longer Taking Prescribed by: ELVA BEAUCHAMP on 06/10/211000 Last Action: Discontinued Lactobacillus Rhamnosus GG (Culturelle) 1 Each Capsule, 1 EACH PO HS, (Reported) Discontinued Reason: No Longer Taking Entered as Reported by: BROOKLYNN MAURICE on 05/28/211030 Last Action: Discontinued Levothyroxine Sodium (Levothyroxine Sodium) 88 Mcg Tablet, 88 MCG PO DAILY, (Reported) Discontinued Reason: No Longer Taking Entered as Reported by: BROOKLYNN MAURICE on 05/28/211030 Last Action: Discontinued Losartan Potassium (Losartan Potassium) 25 Mg Tablet, 25 MG PO DAILY Discontinued Reason: No Longer Taking Prescribed by: ELVA BEAUCHAMP on 06/10/211000 Last Action: Discontinued Magnesium Oxide (Magnesium) 400 Mg Tablet, 400 MG PO Q48H, (Reported) Discontinued Reason: No Longer Taking Entered as Reported by: BROOKLYNN MAURICE on 05/28/21 1031 Last Action: Discontinued Menthol (Biofreeze) 118 Ml Gel..ml., 1 APPLIC TP TID PRN for ARTHRITIS, (Reported) Discontinued Reason: No Longer Taking Entered as Reported by: BROOKLYNN MAURICE on 05/28/21 1031 Last Action: Discontinued Potassium Chloride (Potassium Chloride) 8 Meq Capsule.er, 16 MEQ PO BID WITH MEALS Discontinued Reason: No Longer Taking Prescribed by: ELVA BEAUCHAMP on 06/10/21 1001 Last Action: Discontinued Prednisone (Prednisone) 20 Mg Tab, 20 MG PO DAILY@0700 Discontinued Reason: No Longer Taking Prescribed by: ELVA BEAUCHAMP on 06/10/21 1001 Last Action: Discontinued Sodium Chloride/Aloe Vera ([place] Saline Nasal Gel) 14.1 Gm Gel..gram., 1 APPLIC NS BID PRN for ALLERGY SYMPTOMS, (Reported) Discontinued Reason: No Longer Taking Entered as Reported by: BROOKLYNN MAURICE on 05/28/21 1031 Last Action: Discontinued Tramadol HCl (Tramadol HCl) 50 Mg Tablet, 50 MG PO TID PRN for PAIN-MODERATE (5- 7) Discontinued Reason: No Longer Taking Prescribed by: ELVA BEAUCHAMP on 06/10/21 1002 Last Action: Discontinued [Magic Mouthwash] LIQUID, 15 ML QID PRN for MOUTH PAIN, (Reported) Discontinued Reason: No Longer Taking Entered as Reported by: BROOKLYNN MAURICE on 05/28/21 1031 Last Action: Discontinued Physical Exam-Cardiology Physical Exam Vital Signs/I&O 11/09/22 11/09/22 11/09/22 11/09/22 07:00 07:42 07:54 08:00 Temp 36.5 Pulse 81 75 Resp 16 B/P (MAP) 154/82 (106) Pulse Ox 96 94 96 O2 Delivery Room Air Room Air Room Air O2 Flow Rate 0.00 11/09/22 11/09/22 11/09/22 11/09/22 12:00 12:52 13:44 16:12 Temp 36.6 36.6 Pulse 82 61 61 Resp 18 18 B/P (MAP) 134/64 (87) 134/64 Pulse Ox 98 96 96 O2 Delivery Room Air Room Air Room Air O2 Flow Rate 0.00 11/09/22 00:00 Intake Total 50 ml Output Total 0 ml Balance 50 ml Capillary Refill : Less Than 3 Seconds Constitutional: AAO x 3, well-developed, well-nourished HEENT: EOMI, hearing is well preserved; No xanthelasmas are seen Neck: non-tender, carotid pulses are 2 + bilaterally, with good upstrokes Respiratory: No accessory muscle use; chest expansion is symmetric, chest is bilaterally symmetric, other (fair to good bilateral air entry) Cardiovascular: irregularly irregular, S1 and S2, systolic murmur (soft MARK at card base) Gastrointestinal: No tender; soft; No guarding, No rebound; audible bowel sounds Extremities: No clubbing, No cyanosis, No significant edema Neurologic/Psychiatric: oriented x 3, other (moves all limbs equally) Skin: No rash on exposed areas, No ulcerations on exposed areas Data Review Labs Laboratory Tests 11/08/22 21:06: Glucometer 103 11/09/22 04:02: White Blood Count 8.4, Red Blood Count 3.93, Hemoglobin 12.4, Hematocrit 36, Mean Corpuscular Volume 92, Mean Corpuscular Hemoglobin 32, Mean Corpuscular Hemoglobin Concent 34, Red Cell Distribution Width 12.2, Platelet Count 306, Mean Platelet Volume 8.7L, Immature Granulocyte % (Auto) 0, Neutrophils (%) (Auto) 67, Lymphocytes (%) (Auto) 22, Monocytes (%) (Auto) 8, Eosinophils (%) ( Auto) 2, Basophils (%) (Auto) 1, Neutrophils # (Auto) 5.6, Lymphocytes # (Auto) 1.8, Monocytes # (Auto) 0.7, Eosinophils # (Auto) 0.2, Basophils # (Auto) 0.1, Immature Granulocyte # (Auto) 0.0, Sodium Level 133L, Potassium Level 3.7, Chloride Level 101, Carbon Dioxide Level 22, Anion Gap 10, Blood Urea Nitrogen 12, Creatinine 0.72, Estimat Glomerular Filtration Rate 83, BUN/Creatinine Ratio 17, Glucose Level 93, Calcium Level 8.8, Corrected Calcium 9.2, Total Bilirubin 0.8, Aspartate Amino Transf (AST/SGOT) 16, Alanine Aminotransferase (ALT/SGPT) 15, Alkaline Phosphatase 72, Total Protein 6.2L, Albumin 3.5 11/09/22 10:36: Glucometer 153H Laboratory Tests 11/08/22 17:55 11/09/22 04:02 A/P-Cardiology Assessment/Admission Diagnosis Near-syncope - likely due to low bp. SBP 80 mmHg documented during episode of 11/08/22 Markedly labile hypertension Non-specific, bilateral shoulder discomfort - MPI of 09-22-2022 showed no evidence of ischemia or infarction. No regional wall motion abnormality. MPI 56% Chronic gen malaise and weakness of undetermined etiology SSS and PAF: - s/p unsuccessful cardioversion on 12-04-[address] Garnica - s/p successful cardioversion on 12-14-[address] Garnica - Event monitor for a month which was completed on 02/13/[address] Garnica which did not show any Afib - S/P ILR implant 03-01-[address] Garnica - continuing intermittent PAF with RVR on ILR - OAC with Xarelto - this is being followed by Dr. 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 Garnica showed LVEF 55-65%. LA mildly dilated. Mod to severe MR. PASP 40-45 mmHg - Echocardiogram of 09-02-20 showed LVEF 55-60%. Grade 1 diastolic dysfunction. Mild MR. AoV sclerosis with mild regurg. PASP 40-45 mmHg COPD with nocturnal hypoxemia : - managed by her PCP Tobacco use: - quit smoking when she was in her 40's Mild pulmonary hypertension: - PASP 40-45 mmHg per echo of 09-02-20 - sleep studies by Dr. Brown on 02-14-21 did not indicate sleep apnea - a-fib seen during the test Chronic, bilateral leg swelling, likely related to venous insuff Chronic scoliosis and degenerative cervical spinal disease (chronically stiff neck and shoulders) - managed by her pcp Discussion and Recomendations * Complex management due to episodic occurrence of high and low blood pressure. In such situation, our recommendation is to try and avoid hypotension even if it means leaving bp elevated on the average * We recommend reduction in dose of hydralazine and to use prn only if SBP > 190 * We reviewed her ILR records. She is seen to have a 4 second pause on 10-27-22, but she did not have any symptoms then. During her symptomatic episodes she has not demonstrated bradycardia. Continue to monitor TINA BERG MD FACP FAC CCDS Nov 09, 2022 18:50
[2022-11-10] MEDS ORDERED: MTP100TCR PO (08:35)
== END 2022-11-09 14:49 ==
LOC: EDUNIT# 17:32 → ER 17:33 → UNDOADMOB 20:07 → ICU 20:07 → 4TH 11-09 11:15 → ICU 11-09 11:15 → UNDODISOB 11-09 14:49
PROVIDERS: ADMIT Internal Medicine; ATTEND Internal Medicine
DX: R55 Syncope and collapse (principal); S80.12XA Contusion of left lower leg, initial encounter; I48.91 Unspecified atrial fibrillation; I10 Essential (primary) hypertension; I49.5 Sick sinus syndrome; I48.0 Paroxysmal atrial fibrillation; I65.23 Occlusion and stenosis of bilateral carotid arteries; I34.0 Nonrheumatic mitral (valve) insufficiency; I50.9 Heart failure, unspecified; I49.9 Cardiac arrhythmia, unspecified; R53.81 Other malaise; R53.1 Weakness; E03.9 Hypothyroidism, unspecified; J44.9 Chronic obstructive pulmonary disease, unspecified; R09.02 Hypoxemia; R22.43 Localized swelling, mass and lump, lower limb, bilateral; M41.52 Other secondary scoliosis, cervical region; W18.2XXA Fall in (into) shower or empty bathtub, initial encounter; Z79.01 Long term (current) use of anticoagulants; Z79.890 Hormone replacement therapy; Z87.891 Personal history of nicotine dependence; Z87.440 Personal history of urinary (tract) infections
CPT/HCPCS: 70450; 71045; 80053 ×2; 82947 ×2; 83735; 84484; 85025 ×2; 93005; 93041; 93880; 97162; 99284; G0378 ×2; 36415

== ENCOUNTER 2022-11-09 13:19 | Inpatient (IN) | payer MEDICARE ==
[~2022-11-09] VITALS: Ht 161.3 cm; Wt 62.0 kg
[~2022-11-09 13:19] MED LIST changes: +ATOR20TA66 PO; +BIFI10.5 PO; +CHOL20002 PO; +FEXO180T84 PO; +HYDR-3922 PO; +LEVO88TA2 PO; +MTP100TCR PO; +RIVA15TA2 PO; +SERT-412 PO
[2022-11-09] MEDS ORDERED: DILT-27 PO (14:07)
--- NOTE | 2022-11-09 15:21 | Occupational Therapy Eval ---
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 Transfer to MOU 11/09/22 Social History Home: Single Level Current Living Status: Alone Entry Into Home: Stairs With Railing Steps Into Home: 4 ADL-Prior Level of Function SCALE: Activities may be completed with or without assistive devices. 9-Tewfjezfvc-zrlksrk completes the activity by him/herself with no assistance from a helper. 5-Set-up or Clean-up Assistance-helper sets up or cleans up; patient completes activity. [place] assists only prior to or following the activity. 4-Supervision or Touching Assistance-helper provides verbal cues and/or touching/steadying and/or contact guard assistance as patient completes activity. Assistance may be provided throughout the activity or intermittently. 3-Partial/Moderate Assistance-helper does LESS THAN HALF the effort. [place] lifts, holds or supports trunk or limbs, but provides less than half the effort. 2-Substantial/Maximal Assistance-helper does MORE THAN HALF the effort. [place] lifts or holds trunk or limbs and provides more than half the effort. 7-Wsouvqaxf-ogtjev does ALL the effort. Patient does none of the effort to complete the activity. Or, the assistance of 2 or more helpers is required for the patient to complete the activity. If activity was not attempted, code reason: 7-Patient Refused. 9-Not Applicable-not attempted and the patient did not perform the activity bef ore the current illness, exacerbation or injury. 10-Not Attempted due to Environmental Limitations-(lack of equipment, weather r estraints, etc.). 88-Not Attempted due to Medical Conditions or Safety Concerns. ADL PLOF Comments Pt reports IND with ADLs and functional mobility at [facility], using SPC for the last ~1 week. Pt has a walk in shower, GBs, and built in shower chair. Self Care: Independent Functional Cognition: Independent DME/Equipment: Bath Chair, Grab Bars, Shower DME/Equipment Comments Pt owns SPC, FWW, and BSC OT Current Status Subjective Pt agreeable to OT evaluation. No pain reported. Mental Status/Objective Patient Orientation: Person, Place, Time, Situation Current Glasses/Contacts: Yes Hearing Aids: Yes (does not have with her.) Dentures/Partials: No Hand Dominance: Left Upper Extremity ROM WFL, BUE shoulder flexion to approx 150 degrees Upper Extremity Coordination WFL Upper Extremity Sensation WFL Upper Extremity Strength grossly 3+/5 ADL-Treatment Eating (QC): 6 Oral Hygiene (QC): 4 (CGA) Shower/Bathe Self (QC): 4 (CGA) Upper Body Dressing (QC): 4 (CGA in stand) Lower Body Dressing (QC): 4 (CGA in stand) On/Off Footwear (QC): 4 (SBA) Toileting Hygiene (QC): 4 (CGA) Other Treatments OT evaluation complete. OT/PT cotreat due to skill of 2 clinicians required which a vocational rehabilitation counselor could not perform in order to coordinate UE/LEs, decrease f all risk, and due to pt's limitations in strength, activity tolerance, and mobility. Pt completed functional mobility/transfers including bed mobility, toilet transfer, functional mobility using FWW, stairs, car transfer. Pt returned to her room, completed toileting, showering, dressing, and grooming tasks as outlined above. CGA using FWW to transfer to bed, SBA sit to supine. Post tx, pt in bed, call light in reach and all needs met. SBA rolling, SBA sit to/from supine, CGA sit to/from stand, CGA bed to/from chair, CGA toilet transfer, CGA car transfer, CGA mobility using FWW (150') Education OT Patient Education: Correct positioning, Energy conservation, Modified ADL techniques, Progress toward Goal/Update tx plan, Purpose of tx/functional activities, Rehab process Teaching Recipient: Patient Teaching Methods: Discussion Response to Teaching: Verbalize Understanding BIMS CAM BIMS Expression of Ideas and Wants: Without Difficulty Understanding Verbal Content: Usually Understands (Slight SLEETMUTE, no hearing aides present) Brief Interview/Mental Status: Yes IRF DEMETRIS BIMS: IRF DEMETRIS BIMS Response (Comments) Value Repitition of Three Words Three 3 Recalls Socks Yes, No Cue Required 2 Recalls Blue Yes, No Cue Required 2 Recalls Bed No, Could Not Recall 0 Year Correct 3 Month Accurate Within 5 Days 2 Day Correct 1 Total 13 Should Staff Asses. Mental [address] No CAM Mental Status Change/Baseline: 0 Inattention: 0 Disorganized thinkin Altered level of consciousness: 0 OT Short Term Goals Short Term Goals Time Frame: Nov 18, 2022 Shower/bathe self: 5 Upper body dressin Lower body dressin Putting on/taking off footwear: 5 OT Mcc Goals Mcc Goals Time Frame: Nov 27, 2022 Eating (QC): 6 Oral Hygiene (QC): 6 Toileting Hygiene (QC): 6 Shower/Bathe Self (QC): 6 Upper Body Dressing (QC): 6 Lower Body Dressing (QC): 6 On/Off Footwear (QC): 6 Additional Goals: 1-Demonstrate ADL Tasks, 2-Verbalize Understanding, 3-ImproveStrength/Samy 1=Demonstrate adherence to instructed precautions during ADL tasks. 2=Patient will verbalize/demonstrate understanding of assistive devices/modifications for ADL. 3=Patient will improve strength/tolerance for activity to enable patient to perform ADL's. OT Education/Plan Problem List/Assessment Assessment: Decreased Activ Tolerance, Decreased UE Strength, Impaired Funct Balance, Impaired I ADL's, Impaired Self-Care Skills Discharge Recommendations Plan/Recommendations: Continue POC Treatment Plan/Plan of Care Patient would benefit from OT for education, treatment and training to promote independence in ADL's, mobility, safety and/or upper extremity function for ADL's. Plan of Care: ADL Retraining, Functional Mobility, Group Exercise/Act as Ind, UE Funct Exercise/Act Treatment Duration: Nov 27, 2022 Frequency: At least 5 of 7 days/Wk (IRF) Estimated Hrs Per Day: 1.5 hours per day Agreement: Yes Rehab Potential: Good Time Start Time: 14:45 (2425-5910 OT evaluation) Stop Time: 16:30 ([id number] [place]) DATE: Nov 09, 2022 Total Time Billed (hr/min): 90 Billed Treatment Time 6824-3763 OT evaluation, 6787-7258 PT evaluation (not billed), 9220-3172 [place] 1, EVL (15'), FA 2 (30'), ADL 3 (45') BERTRAM SCHULTZ OT Nov 09, 2022 15:21
--- OUTSIDE RECORDS SUMMARY | 2022-11-09 15:25 | XMS REPORT | Encounter Summary ---
Author Author [facility] Organization [facility] Address Unknown Phone Unavailable Care Team Providers Care Information Technology Teacher Name Role Phone Cony Poole MD PCP Encounter Details Care Team Description Date Type Department Discharge Disposition: Home or Self Care 09/18/2022 Hospital Cardiovascular [facility] cine 7:59 AM Encounter Remote Device Check CDT - [phone] 09/18/2022 11:59 PM CDT Social History Date Tobacco Use Types Packs/Day Years Used Quit: 1982 Smoking Tobacco: Former Cigarettes Smokeless Tobacco: Never Comments Alcohol Use Standard Drinks/Week Never 0 (1 standard drink = 0.6 o z pure alcohol) Date Recorded Alcohol Use Answer Alcohol Use No Male: 9+ ounces (15+ Standard Drinks) per week Not o n file Threshold Female: 4.8+ ounces (8+ Standard Drinks) per week 0 Threshold Date Recorded Sex and Gender Information Value 06/19/2022 10:19 AM PHYSICAL SECURITY SPECIALIST Sex Assigned at Female 06/19/2022 10:19 AM PHYSICAL SECURITY SPECIALIST Gender Identity Female 06/19/2022 10:19 AM PHYSICAL SECURITY SPECIALIST Sexual Orientation Straight documented as of this encounter Medications at Time of Discharge Start Date End Date Medication Sig Dispensed Refills albuterol sulfate (PROAIR Inhale 2 0 HFA) 90 mcg/actuation HFA puffs by aerosol inhaler mouth into the lungs every 4 hours as needed for Wheezing or Shortness of Breath. Shake well before use. aspirin EC 81 mg tablet Take 81 mg by 0 mouth daily. Take with food. atorvastatin (LIPITOR) 20 Take 20 mg by 0 mg tablet mouth daily. budesonide (PULMICORT) Inhale 0.25 0 0.25 mg/2 mL nebulizer mg solution solution by nebulizer as directed twice daily. carboxymethylcellulos/gly Place into 0 cerin (REFRESH OPTIVE OP) or around eye(s) twice daily. cetirizine (ZYRTEC) 10 mg Take 10 mg by 0 tablet mouth every morning. CHOLEcalciferoL (vitamin Take by 0 D3) (VITAMIN D3) 1,000 mouth. 2000 units tablet units qam and 1000 units in the evening. cyanocobalamin (vitamin Take 500 mcg 0 B-12) 500 mcg tablet by mouth daily. formoterol fumarate Inhale 20 mcg 0 (PERFOROMIST) 20 mcg/2 mL solution by nebulizer vial nebulizer as directed twice daily. 07/30/2022 hydrALAZINE (APRESOLINE) Take one 180 tablet 1 10 mg tablet tablet by mouth twice daily. levothyroxine (SYNTHROID) Take 88 mcg 0 88 mcg tablet by mouth daily 30 minutes before breakfast. losartan (COZAAR) 50 mg Take 50 mg by 0 tablet mouth twice daily. metoprolol succinate XL Take 100 mg 0 (TOPROL XL) 100 mg by mouth extended release tablet daily. rivaroxaban (XARELTO) 15 Take 15 mg by 0 mg tablet mouth daily. Take with food. documented as of this encounter Discharge Disposition Code Departure Means Destination Disposition Home Home or Self Care documented in this encounter Plan of Treatment Not on filedocumented as of this encounter Procedures Comments Procedure Name Priority Date/Time Associated Diag nosis DEVICE EVALUATION - Routine 09/18/2022 Status pos t placement of REMOTE ILR CHARGES 7:59 AM CDT implantable loop r ecorder documented in this encounter Results * DEVICE EVALUATION - REMOTE ILR CHARGES (09/18/2022 7:59 AM CDT) Pathologist Signature Component Value Ref Test Method Analysis Performed A t Range Time Generator [employer] MURJ System Safety Manager Generator Model # LNQ11 MURJ Generator Serial # [id number] MURJ Generator Implnat [id number] MURJ Date On Anticoagulation yes MURJ Device Type ILR MURJ Modality Anatomical Region Laterality MAC CV Heart Rhythm Anatomical Location / Laterality Collection Method / Volume Rolando ection Time Received Time Specimen (Source) 09/17/2022 6:43 PM CDT Narrative 10/19/2022 10:28 AM CDT Title: Remote Check * Diagnostic device interrogation reviewed by technical staff * Alerts or Events: 0 * Battery: , * Programmed parameters reviewed * Presenting rhythm reviewed * Heart Rate Histograms reviewed Additional Notes: reviewing location remote Reji Miller MD HEART RHYTHM MANAGEMENT ORD ERABLES documented in this encounter Visit Diagnoses Not on filedocumented in this encounter Care Teams Start Date End Date Information Technology Teacher Relationship Specialty 05/15/22 Cony Poloe MD PCP - General Family Medicine [address] [place] [id number] documented as of this encounter
--- OUTSIDE RECORDS SUMMARY | 2022-11-09 15:25 | XMS REPORT | Encounter Summary ---
Author Author [facility] Organization [facility] Address Unknown Phone Unavailable Care Team Providers Care Microsoft Developer Name Role Phone Cony Poole MD PCP Reason for Visit * Reason Onset Date Comments Follow-up Phone Call 11/09/2022 Encounter Details Care Team Description Date Type Department Mckenna Kulkarni RN Follow-up Phone Call 11/09/2022 Telephone Cardiology: [facility] [address] [place] [address] Social History Date Tobacco Use Types Packs/Day [...] and Gender Information Value 06/19/2022 10:19 AM CLOTH MERCERIZER OPERATOR Sex Assigned at Female 06/19/2022 10:19 AM CLOTH MERCERIZER OPERATOR Gender Identity Female 06/19/2022 10:19 AM CLOTH MERCERIZER OPERATOR Sexual Orientation Straight documented as of this encounter Miscellaneous Notes * Telephone Encounter - Adriana Fajardo BSN - 11/09/2022 3:07 PM CDT ILR reports faxed at this time. * Telephone Encounter - Mckenna Kulkarni RN - 11/09/2022 9:05 AM CDT Called Richard at Dr. Smith office, pt is hospitalized for syncopal episode in [place], [place] and they would like a copy of the device transmission reports faxed to them at [phone].The reports have not yet uploaded to chart, I have reach ed out to the device team for assistance. * Telephone Encounter - Mckenna Kulkarni RN - 11/09/2022 9:05 AM CDT Richard from Dr. Smith office called wanting to speak to MPE Nurse about [place] P atient. Please call her @ [phone] * Telephone Encounter - Mckenna Kulkarni RN - 11/09/2022 9:04 AM CDT ----- Message from Mckenna Kulkarni RN sent at 11/06/2022 12:46 PM CDT ----- Regarding: FW: MPE LINQ ----- Message ----- From: Adriana Fajardo BSN Sent: 11/06/2022 9:00 AM CDT To: [facility] Nurse Ep Team C Subject: FW: MPE LINQ PDF? ----- Message ----- From: Kaila Stock Sent: 11/05/2022 8:20 AM CDT To: [facility] Nurse Ep Team C Subject: MPE LINQ 3.5 second pause- see PDF documented in this encounter Plan of Treatment Not on filedocumented as of this encounter Visit Diagnoses Not on filedocumented in this encounter Care Teams Start Date End Date Microsoft Developer Relationship Specialty 05/15/22 Cony Poole MD PCP - General Family [facility] [address] [place] [id number] documented as of this encounter
--- OUTSIDE RECORDS SUMMARY | 2022-11-09 15:25 | XMS REPORT | Clinical Summary ---
Author Author [facility] Organization [facility] Address Unknown Phone Unavailable Care Team Providers Care Composition Instructor Name Role Phone Cony Poole MD PCP Source Comments Some departments are not documenting in the electronic medical record. If you d o not see the information that you expected, contact Release of Information in [facility] [employer] Information Management department at [phone] for further assistan ce in locating additional records.[facility] Allergies Comments Active Allergy Reactions Criticality Noted Date burning Amlodipine REDNESS, Medium 07/30/2022 EDEMA Cephalexin DIARRHEA Low 06/08/2022 Clindamycin DIARRHEA Low 06/08/2022 Codeine VOMITING Low 06/08/2022 Medications End Date Status Medication Sig Dispensed Refills Start Date Active albuterol sulfate (PROAIR Inhale 2 0 HFA) 90 mcg/actuation HFA puffs by aerosol inhaler mouth into the lungs every 4 hours as needed for Wheezing or Shortness of Breath. Shake well before use. Active aspirin EC 81 mg tablet Take 81 mg by 0 mouth daily. Take with food. Active atorvastatin (LIPITOR) 20 Take 20 mg by 0 mg tablet mouth daily. Active budesonide (PULMICORT) Inhale 0.25 0 0.25 mg/2 mL nebulizer mg solution solution by nebulizer as directed twice daily. Active losartan (COZAAR) 50 mg Take 50 mg by 0 tablet mouth twice daily. Active metoprolol succinate XL Take 100 mg 0 (TOPROL XL) 100 mg by mouth extended release tablet daily. Active formoterol fumarate Inhale 20 mcg 0 (PERFOROMIST) 20 mcg/2 mL solution by nebulizer vial nebulizer as directed twice daily. Active carboxymethylcellulos/gly Place into 0 cerin (REFRESH OPTIVE OP) or around eye(s) twice daily. Active levothyroxine (SYNTHROID) Take 88 mcg 0 88 mcg tablet by mouth daily 30 minutes before breakfast. Active cyanocobalamin (vitamin Take 500 mcg 0 B-12) 500 mcg tablet by mouth daily. Active CHOLEcalciferoL (vitamin Take by 0 D3) (VITAMIN D3) 1,000 mouth. 2000 units tablet units qam and 1000 units in the evening. Active rivaroxaban (XARELTO) 15 Take 15 mg by 0 mg tablet mouth daily. Take with food. Active cetirizine (ZYRTEC) 10 mg Take 10 mg by 0 tablet mouth every morning. Active hydrALAZINE (APRESOLINE) Take one 180 tablet 1 0 10 mg tablet tablet by 3 mouth twice daily. Active Problems Problem Noted Date Diagnosed Date Malaise 06/08/2022 Overview: Per OV note on 04/27/[address] Roxy Lopez ([facility]) Postural dizziness 06/08/2022 Overview: Per OV note on 04/27/[address] Roxy Lopez ([facility]) SSS (sick sinus syndrome) 06/08/2022 Overview: Per OV note on 04/27/[address] Roxy Lopez ([facility]) PAF (paroxysmal atrial fibrillation) 06/08/2022 Overview: Per OV note on 04/27/[address] Roxy Lopez ([facility]) 01/15/2020 - EVM: ([facility]) SR, ST. Low burden of ecto py. No arrhythmias. 09/02/2020 - ECHO: ([facility]) LV cavity is normal. LV wa ll thickness is normal. LV systolic function is normal . EF ~ 55-60%. There were no regional wall motion abno rmalities identified. Doppler parameters are consistent with abnormal LV relaxation (grade 1 diastolic dysfuncti on). LA is mildly dilated. Mild MVR. AV thickening, con sistent with sclerosis. Mild AVR. PASP is in the r bry of 40-45 mmHg. 09/24/2020 - Regadenoson MPI: ([facility] [facility]) No evidence of any significa nt myocardial ischemia or infarction on this study. Normal regional wall motion. Normal global LV systolic func tion with EF of 57%. 02/14/2021 - Sleep Study: ( A diagnost ic sleep study was performed. The patient did not exhibit CONSTANZA during this study. She had mild primary snoring. She had periodic leg movements which caused 9 cortical arous als/hour. Status post placement of implantable loop recorder 0 06/08/2022 Overview: Per OV note on 04/27/[address] Roxy Lopez ([facility]) Hypothyroid 06/08/2022 Overview: Per OV note on 04/27/[address] Roxy Lopez ([facility]) Primary hypertension 06/08/2022 Overview: Per OV note on 04/27/[address] Roxy Lopez ([facility]) Carotid artery disease 06/08/2022 Overview: Per OV note on 04/27/[address] Roxy Lopez ([facility]) 03/04/2021 - Carotid Artery Duplex: ([facility]) Moderate bilateral carotid plaque, greatest on the right. Velocity measur ements in the right internal carotid artery are consistent with greater than 69% diameter stenosis. 03/13/2021 - CTA of Neck: ([facility]) Approximately 80% stenosis in the proximal right ICA secondary to atherosclerotic plaque . No significant stenosis is seen in the left carotid sy stem. No stenosis or dissection in the bilateral vertebral a rteries. 09/10/2021 - Carotid Artery Duplex: ([facility]) Mild bilateral car otid arterial plaque without evidence of hemodynamic signifi cance. COPD (chronic obstructive pulmonary disease) 023 Overview: Per OV note on 04/27/[address] Roxy Lopez ([facility]) Localized swelling of both lower legs 06/08/2022 Overview: Per OV note on 04/27/[address] Roxy Lopez ([facility]) Encounters Care Team Description Date Type Department Mckenna Kulkarni, PIETER Follow-up Phone Call 11/09/2022 Telephone Cardiology: [facility] [address] [place] [address] Discharge Disposition: Home or Self Care 10/20/2022 [facility] cine 3:37 PM Encounter Remote Device Check CDT - [phone] 10/20/2022 11:59 PM CDT Discharge Disposition: Home or Self Care 09/18/2022 [facility] 7:59 AM Encounter Remote Device Check CDT - [phone] 09/18/2022 11:59 PM CDT Discharge Disposition: Home or Self Care 08/21/2022 [facility] cine 12:05 PM Encounter Remote Device Check CDT - [phone] 08/21/2022 11:59 PM CDT Paola Bartlett Records Request ( Dr. Lopez ) 08/13/2022 Documentation Cardiology: [facility] [address] [place] [address] Tamia Paul, PIETER 08/13/2022 Telephone Cardiology: [facility] [address] [place] [phone] from Last 3 Months Surgical History Surgery Date Site/Laterality Comments ELECTROCARDIOGRAM CARDIOVERSION RHYTHM DEVICE PLACEMENT DOPPLER ECHOCARDIOGRAPHY EVENT MONITOR CARDIOVASCULAR STRESS TEST Medical History Medical History Date Comments Malaise 06/08/2022 Postural dizziness 06/08/2022 SSS (sick sinus syndrome) (HCC) 06/08/2022 PAF (paroxysmal atrial fibrillation) 06/08/2022 (HCC) Status post placement of implantable 06/08/2022 loop recorder Hypothyroid 06/08/2022 Primary hypertension 06/08/2022 Carotid artery disease (HCC) 06/08/2022 COPD (chronic obstructive pulmonary 06/08/2022 disease) (HCC) Localized swelling of both lower legs 06/08/2022 Social History Date Tobacco Use Types Packs/Day Years Used Quit: 1982 Smoking Tobacco: Former Cigarettes Smokeless Tobacco: Never Tobacco Cessation: Counseling Given: No Comments Alcohol Use Standard Drinks/Week Never 0 (1 standard drink = 0.6 o z pure alcohol) Date Recorded Alcohol Use Answer Alcohol Use No Male: 9+ ounces (15+ Standard Drinks) per week Not o n file Threshold Female: 4.8+ ounces (8+ Standard Drinks) per week 0 Threshold Date Recorded Sex and Gender Information Value 06/19/2022 10:19 AM DISASSEMBLER PRODUCT Sex Assigned at Female 06/19/2022 10:19 AM DISASSEMBLER PRODUCT Gender Identity Female 06/19/2022 10:19 AM DISASSEMBLER PRODUCT Sexual Orientation Straight Obstetrics History Last Filed Vital Signs Reading Time Taken Comments Vital Sign 181/86 06/19/2022 1:39 PM DISASSEMBLER PRODUCT Blood Pressure 68 06/19/2022 1:39 PM DISASSEMBLER PRODUCT Pulse 36.3 C (97.3 F) 06/19/2022 1:39 PM DISASSEMBLER PRODUCT Temperature 18 06/19/2022 1:39 PM DISASSEMBLER PRODUCT Respiratory Rate 96% 06/19/2022 1:39 PM DISASSEMBLER PRODUCT Oxygen Saturation - - Inhaled Oxygen Concentration 60.2 kg (132 lb 12.8 oz) 06/19/2022 1:39 PM DISASSEMBLER PRODUCT Weight 160 cm (5' 3") 06/19/2022 1:39 PM DISASSEMBLER PRODUCT Height 23.52 06/19/2022 1:39 PM DISASSEMBLER PRODUCT Body Mass Index Plan of Treatment Health Maintenance Due Date Last Done Comments MEDICARE ANNUAL WELLNESS 1940 VISIT PNEUMOCOCCAL VACCINE 65+ 01/28/1946 YRS (1 - PCV) DTAP/TDAP VACCINES (1 - 01/28/1958 Tdap) PHYSICAL (COMPREHENSIVE) 01/28/1958 EXAM SHINGLES RECOMBINANT 01/28/1990 VACCINE (1 of 2) OSTEOPOROSIS 01/28/2005 SCREENING/MONITORING ADVANCED CARE PLANNING 06/07/2022 DISCUSSION AND DOCUMENTATION DEPRESSION SCREENING 06/07/2022 INFLUENZA VACCINE Completed 03/04/2022, 02/27/2021, 02/24/2020, Additional history exists COVID-19 VACCINE Completed 03/20/2022, 09/26/2021, 04/04/2021, Additional history exists Procedures Comments Procedure Name Priority Date/Time Associated Diag nosis DEVICE EVALUATION - Routine 09/18/2022 Status pos t placement of REMOTE ILR CHARGES 7:59 AM CDT implantable loop r ecorder DEVICE EVALUATION - Routine 08/18/2022 Status pos t placement of REMOTE ILR CHARGES 12:08 PM CDT implantable loop r ecorder from Last 3 Months Results * DEVICE EVALUATION - REMOTE ILR CHARGES (09/18/2022 7:59 AM CDT) Pathologist Signature Component Value Ref Test Method Analysis Performed A t Range Time Generator [employer] MURJ Transplant Nurse Practitioner Generator Model # LNQ11 MURJ Generator Serial # [id number] MURJ Generator Implnat [id number] MURJ Date On Anticoagulation yes MURJ Device [...] Miller MD HEART RHYTHM MANAGEMENT ORD ERABLES * DEVICE EVALUATION - REMOTE ILR CHARGES (08/18/2022 12:08 PM CDT) Pathologist Signature Component Value Ref Test Method Analysis Performed A t Range Time Generator [employer] MURJ Transplant Nurse Practitioner Generator Model # LNQ11 MURJ Generator Serial # [id number] MURJ Generator Implnat [id number] MURJ Date On Anticoagulation yes MURJ Device Type ILR MURJ Modality Anatomical Region Laterality MAC CV Heart Rhythm Anatomical Location / Laterality Collection Method / Volume Rolando ection Time Received Time Specimen (Source) 08/17/2022 6:37 PM CDT Narrative 10/19/2022 10:01 AM CDT Title: Remote Check * Diagnostic device interrogation reviewed by technical staff * Alerts or Events: 0 * Battery: , * Programmed parameters reviewed * Presenting rhythm reviewed * Heart Rate Histograms reviewed Additional Notes: reviewing location remote Reji Miller MD HEART RHYTHM MANAGEMENT ORD ERABLES from Last 3 Months Insurance Type Payer Benefit Subscriber ID Effective Phone Address Plan / Dates Group Medicare MEDICARE MEDICARE [id number] 2005-P [phone] [address] [place] [address] Medicare BCBS [place] BCBS [id number] 2021-P [phone] [id number] [place] [phone] Care Teams Start Date End Date Composition Instructor Relationship Specialty 05/15/22 Cony Poole MD PCP - General Family Medicine [address] [place] [id number]
--- OUTSIDE RECORDS SUMMARY | 2022-11-09 15:25 | XMS REPORT | Encounter Summary ---
Author Author [facility] Organization [facility] Address Unknown Phone Unavailable Care Team Providers Care Hair Baler Name Role Phone Cony Poole MD PCP Encounter Details Care Team Description Date Type Department Discharge Disposition: Home or Self Care 10/20/2022 Hospital Cardi[facility] cine 3:37 PM Encounter Remote Device Check CDT - [phone] 10/20/2022 11:59 PM CDT Social History Date Tobacco [...] and Gender Information Value 06/19/2022 10:19 AM HANDER IN Sex Assigned at Female 06/19/2022 10:19 AM HANDER IN Gender Identity Female 06/19/2022 10:19 AM HANDER IN Sexual Orientation Straight documented as of this [...] documented in this encounter Plan of Treatment Date/Time Name Type Priority Associated Diag noses 10/19/2022 3:37 PM CDT DEVICE EVALUATION - Device Check Routine Status pos t placement of REMOTE ILR Remote implantable loop re keith documented as of this encounter Visit Diagnoses Not on filedocumented in this encounter Care Teams Start Date End Date Hair Baler Relationship Specialty 05/15/22 Cony Poole MD PCP - General Family [address] [id number] documented as of this encounter
--- OUTSIDE RECORDS SUMMARY | 2022-11-09 15:26 | XMS REPORT | CCD ---
Author Author Tanna Poole D.O. Organization [facility] Address [address] [place] [phone] Phone Care Team Providers Care Data Collection Interviewer Name Role Phone Cony Poole D.O., PP Unavailable CCM Unavailable Summary Purpose Interface Exchange Insurance Providers Payer name Policy type / Coverage type Covered constitution party ID Effective Begin Date Effective End Date WPS MEDICARE PART B [place] Medicare Part B [id number] Unknown [facility] Medicare Part B [id number] Un known Family history Sister Diagnosis Age At Onset Breast cancer Unknown Mother Diagnosis Age At Onset Breast cancer Unknown Lumbar (intervertebral) disk disorders Unknown Sister Diagnosis Age At Onset Breast cancer Unknown Father Diagnosis Age At Onset Cerebrovascular disease Unknown Diabetes mellitus Type 2 Unknown Lung Cancer Unknown Social History Social History Element Codes Description Effective Dates Marital status Unknown 06/27/2015 Number of children Unknown 1 06/27/2015 Employment Unknown Retired 06/27/[address]: 0840228 Former smoker quit 1986 06/27/[address]: 824297844 Never drinks alcohol 2015 Has the patient ever used illegal drugs? Unknown Has nev er used illegal drugs 06/27/2015 Allergies, Adverse Reactions, Alerts Substance Reaction Codes Entered Date Inactivated Date Status * NO KNOWN FOOD ALLERGIES Unknown 06/27/2015 No Inactiv e Date Active CODEINE Unknown 06/27/2015 No Inactive Date Active PENICILLINS Unknown 06/27/2015 No Inactive Date Active Tape reaction Unknown 06/27/2015 No Inactive Date Active Problems Condition Codes Effective Dates Condition Status Insomnia ICD-10: G47.00 ICD-9: 780.52 10/01/2022 Active Other malaise and fatigue ICD-10: R53.81 ICD-9: 780.79 10/01/2022 Active 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 ICD-9: 309.89 04/28/2021 Active Cervicalgia ICD-10: M54.2 ICD-9: 723.1 2020 Active Hypothyroidism, unspecified ICD-10: E03.9 ICD-9: 244.9 05/19/2016 Active Labile hypertension ICD-10: R09.89 ICD-9: 401.9 08/25/2022 Active Paroxysmal atrial fibrillation ICD-10: I48.0 ICD-9: 427.31 05/19/2016 Active Chronic atrial fibrillation ICD-10: I48.20 ICD-9: 427.31 05/25/2022 Active COPD (chronic obstructive pulmonary disease) ICD-10: J 44.9 ICD-9: 496 10/28/2021 Active Dyspnea on exertion ICD-10: R06.09 ICD-9: 786.09 08/11/2022 Active Essential hypertension ICD-10: I10 ICD-9: 401.9 06/02/2016 Active Atrial fibrillation ICD-10: I48.91 ICD-9: 427.31 11/27/2019 Active Bradycardia ICD-10: R00.1 ICD-9: 427.89 07/28/2022 Active Edema ICD-10: R60.9 ICD-9: 782.3 12/04/2015 Active URI (upper respiratory infection) ICD-10: J06.9 ICD-9: 465.9 05/25/2016 Active Allergic rhinitis ICD-10: J30.9 ICD-9: 477.9 09/23/2021 Active Unsteady gait ICD-10: R26.81 ICD-9: 781.2 03/19/2022 Active COPD exacerbation ICD-10: J44.1 ICD-9: 491.21 2022 Active Contact with and (suspected) exposure to other viral c ommunicable diseases ICD- 10: Z20.828 ICD-9: V01.79 01/27/2022 Active COPD with acute lower respiratory infection ICD-10: J4 4.0 ICD-9: 496 01/27/2022 Active Dyspnea ICD-10: R06.00 ICD-9: 786.09 08/21/2021 Active Mixed hyperlipidemia ICD-10: E78.2 ICD-9: 272.2 09/23/2021 Active Stasis dermatitis ICD-10: I87.2 ICD-9: 454.1 02/22/2020 Active History of right-sided carotid endarterectomy ICD-10: Z98.890 ICD-9: V45.89 06/19/2021 Active Reactive airway disease ICD-10: J45.909 ICD-9: 493.90 06/19/2021 Active Sciatica ICD-10: M54.30 ICD-9: 724.3 06/19/2021 Active Urinary tract infection ICD-10: N39.0 ICD-9: 599.0 09/14/2018 Active Edema leg ICD-10: R60.0 ICD-9: 782.3 01/12/2016 Active 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 ICD-9: 433.10 05/08/2021 Active Cervical radiculopathy ICD-10: M54.12 ICD-9: 723.4 04/28/2021 Active Other fatigue ICD-10: R53.83 ICD-9: 780.79 08/25/2016 Active Vitamin B12 deficiency anemia, unspecified ICD-10: D51 .9 ICD-9: 281.1 09/30/2016 Active Encounter for immunization ICD-10: Z23 ICD-9: V03.89 02/27/2021 Active Lymphadenopathy of right cervical region ICD-10: R59.0 ICD-9: 785.6 02/06/2021 Active Osteopenia ICD-10: M85.80 ICD-9: 733.90 02/06/2021 Active Skin lesion of right leg ICD-10: L98.9 ICD-9: 709.9 12/20/2020 Active Nontraumatic blister of skin ICD-10: R23.8 ICD-9: 709.8 12/11/2020 Active Nocturia ICD-10: R35.1 ICD-9: 788.43 02/16/2019 Active Actinic keratoses ICD-10: L57.0 ICD-9: 702.0 09/05/2020 Active Inflamed seborrheic keratosis ICD-10: L82.0 ICD-9: 702.11 09/05/2020 Active Weakness ICD-10: R53.1 ICD-9: 780.79 11/24/2015 Active Right upper lobe pulmonary nodule ICD-10: R91.1 ICD-9: 793.11 11/27/2019 Active Muscle spasm ICD-10: M62.838 ICD-9: 728.85 08/25/2019 Active Right wrist pain ICD-10: M25.531 ICD-9: 719.43 01/22/2020 Active CHF (congestive heart failure) ICD-10: I50.9 ICD-9: 428.0 11/27/2019 Active Hypotension ICD-10: I95.9 ICD-9: 458.9 12/16/2016 Active Left leg swelling ICD-10: M79.89 ICD-9: 729.81 10/10/2019 Active Low back pain ICD-10: M54.5 ICD-9: 724.2 07/13/2019 Active Sciatica of left side ICD-10: M54.32 ICD-9: 724.3 07/13/2019 Active Pneumonia due to infectious organism ICD-10: J18.9 ICD-9: 486 05/17/2019 Active Acute pharyngitis ICD-10: J02.9 ICD-9: 462 05/08/2019 Active Altered taste ICD-10: R43.2 ICD-9: 781.1 05/08/2019 Active Stomatitis and mucositis with change of taste ICD-10: K12.1 ICD-9: 528.00 04/10/2019 Active Hematuria ICD-10: R31.9 ICD-9: 599.70 11/26/2015 Active Oral mucositis (ulcerative), unspecified ICD-10: K12.30 019 Active FLU VACCINE ICD-10: Z23 ICD-9: V04.81 03/18/2016 Active Impacted cerumen, right ear ICD-10: H61.21 ICD-9: 380.4 03/18/2018 Active Other specified hearing loss, right ear ICD-10: H91.8X 1 ICD-9: 389.8 12/14/2018 Active Allergic rhinitis due to pollen ICD-10: J30.1 ICD-9: 477.9 09/26/2018 Active Cough ICD-10: R05 ICD-9: 786.2 06/02/2016 Active Dermatitis, unspecified ICD-10: L30.9 ICD-9: 692.9 09/26/2018 Active Slow transit constipation ICD-10: K59.01 ICD-9: 564.01 09/26/2018 Active Acute bronchitis, unspecified ICD-10: J20.9 ICD-9: 466.0 09/22/2018 Active Other specified respiratory disorders ICD-10: J98.8 ICD-9: 519.8 09/23/2018 Active Fever, unspecified ICD-10: R50.9 ICD-9: 780.60 05/25/2016 Active Dysuria ICD-10: R30.0 ICD-9: 788.1 09/05/2018 Active Personal history of urinary (tract) infections ICD-10: Z87.440 ICD-9: V13.02 09/05/2018 Active Tachycardia, unspecified ICD-10: R00.0 ICD-9: 785.0 10/06/2015 Active Chronic fatigue, unspecified ICD-10: R53.82 ICD-9: 780.79 09/08/2018 Active Hypokalemia ICD-10: E87.6 ICD-9: 276.8 08/23/2018 Active Pain in unspecified joint ICD-10: M25.50 ICD-9: 719.40 11/24/2015 Active Vitamin D deficiency, unspecified ICD-10: E55.9 ICD-9: 268.9 10/01/2016 Active Atopic dermatitis, unspecified ICD-10: L20.9 ICD-9: 691.8 02/16/2018 Active Pressure ulcer of right heel, stage 1 ICD-10: L89.611 ICD-9: 707.07 01/26/2018 Active Other seborrheic keratosis ICD-10: L82.1 ICD-9: 702.19 11/04/2017 Active Achilles tendinitis, right leg ICD-10: M76.61 ICD-9: 726.71 10/20/2017 Active Other specified disorders of bone density and structur e, multiple sites ICD-10: M85.89 ICD-9: 733.99 08/13/2017 Active Encounter for screening mammogram for malignant neopla sm of breast ICD-10: Z12.31 ICD-9: V76.12 03/30/2017 Active Hypo-osmolality and hyponatremia ICD-10: E87.1 ICD-9: 276.1 12/11/2015 Active Hypotension due to drugs ICD-10: I95.2 ICD-9: 458.8 10/27/2016 Active Lymphangitis ICD-10: I89.1 ICD-9: 457.2 10/08/2016 Active Other symptoms and signs involving the genitourinary s ystem ICD-10: R39.89 ICD-9: 791.9 10/26/2016 Active Cellulitis of left lower limb ICD-10: L03.116 ICD-9: 682.6 10/05/2016 Active Venous insufficiency (chronic) (peripheral) ICD-10: I8 7.2 ICD-9: 459.81 05/19/2016 Active Hypertension Unknown 09/30/2016 Active Muscle weakness (generalized) ICD-10: M62.81 ICD-9: 728.87 08/19/2016 Active Primary insomnia ICD-10: F51.01 ICD-9: 780.52 05/19/2016 Active Pain in right ankle and joints of right foot ICD-10: M 25.571 ICD-9: 719.47 03/18/2016 Active PNEUMOCOCCAL VACCINE ICD-10: Z23 ICD-9: V03.82 01/12/2016 Active Dizziness and giddiness ICD-10: R42 ICD-9: 780.4 10/20/2015 Active Palpitations ICD-10: R00.2 ICD-9: 785.1 10/06/2015 Active Family history of malignant neoplasm of breast ICD-10: Z80.3 ICD-9: V16.3 06/26/2015 Active Medications Medication Codes Instructions Start Date Stop Date Status Fill Instructions Synthroid 88 mcg tablet RxNorm: 011386 TAKE 1 TABLET BY MOUTH ONCE DAILY WEDNESDAY-Wednesday10/23/2022 01/20/2023 Active atorvastatin 20 mg tablet RxNorm: 002631 Take 1 Tablet(s) Oral QD 0 10/16/2022 04/13/2023 Active Patient requests 90 days s upply hydralazine 10 mg tablet RxNorm: 649423 Take 1 Tablet(s) Oral t wo times a day 10/15/2022 04/12/2023 Active sertraline 25 mg tablet RxNorm: 534742 1/2 Tablet(s) Oral QPM r eplaces effexor 10/05/2022 01/02/2023 Active Synthroid 75 mcg tablet RxNorm: 656884 TAKE 1 TABLET BY MOUTH WEDNESDAY, WEDNESDAY, Wednesday10/05/2022 03/21/2023 Active sertraline 25 mg tablet RxNorm: 845132 1/2 Tablet(s) Oral QPM r eplaces effexor 10/05/2022 10/05/2022 Inactive Effexor XR 37.5 mg capsule,extended release RxNorm: 059939 Take 1 Capsule(s) Oral QPM for mood 10/01/2022 10/04/2022 Inactive losartan 50 mg tablet RxNorm: 393103 Take 1 Tablet(s) Oral two times a day 09/16/2022 03/14/2023 Active Synthroid 75 mcg tablet RxNorm: 684891 Take 1 Tablet(s) Oral MWF 11/25/2022 Active Synthroid 88 mcg tablet RxNorm: 861362 Take 1 Tablet(s) Oral QD Tu, Th, Sa, [place] 08/28/2022 11/25/2022 Active Synthroid 88 mcg tablet RxNorm: 190078 Take 1 Tablet(s) Oral QD Tu, Th, Sa, [place] 08/25/2022 08/25/2022 Inactive Synthroid 75 mcg tablet RxNorm: 331881 Take 1 Tablet(s) Oral MWF 08/25/2022 Inactive Synthroid 75 mcg tablet RxNorm: 650376 Take 1 Tablet(s) Oral MWF 08/24/2022 Inactive hydralazine 10 mg tablet RxNorm: 584978 Take 1 Tablet(s) Oral t wo times a day 07/28/2022 07/28/2022 Inactive metoprolol succinate ER 100 mg tablet,extended release 24 hr RxNorm: 692109 Take 1 Tablet(s) Oral QPM 07/28/2022 07/28/2022 Inactive Synthroid 88 mcg tablet RxNorm: 476341 Take 1 Tablet(s) Oral QD Wednesday-Wednesday07/28/2022 08/24/2022 Inactive Synthroid 75 mcg tablet RxNorm: 595036 Take 1 Tablet(s) Oral QA M Sat/Sun 07/28/2022 08/24/2022 Inactive losartan 50 mg tablet RxNorm: 132931 1 Tablet(s) Oral two times a day 07/28/2022 07/28/2022 Inactive Zithromax Z-Topher 250 mg tablet RxNorm: 267860 Take 2 Tab let(s) Oral QD x1 dose then 1 daily 07/14/2022 07/18/2022 Inactive losartan 50 mg tablet RxNorm: 383539 TAKE ONE TABLET BY MOUTH DAILY 07/14/2022 07/27/2022 Inactive Synthroid 88 mcg tablet RxNorm: 036972 Take 1 Tablet(s) Oral QD Wednesday-Wednesday06/23/2022 07/27/2022 Inactive Synthroid 75 mcg tablet RxNorm: 005119 Take 1 Tablet(s) Oral QA M Sat/Sun 06/23/2022 07/27/2022 Inactive Xarelto 15 mg tablet RxNorm: 8548617 Take 1 Tablet(s) Oral QD 06/0906/09/2022 Inactive metoprolol succinate ER 100 mg tablet,extended release 24 hr RxNorm: 036133 Take 1 Tablet(s) Oral QD 06/09/2022 06/09/2022 Inactive atorvastatin 20 mg tablet RxNorm: 588660 Take 1 Tablet(s) Oral QD 0 06/09/2022 06/09/2022 Inactive budesonide 0.5 mg/2 mL suspension for nebulization RxNorm: 3 75585 USE 1 VIAL IN NEBULIZER TWICE DAILY (RINSE MOUTH AFTER EACH TREATMENT) 05/29/2022 No Stop Date Active Perforomist 20 mcg/2 mL solution for nebulization RxNorm: 12 72864 USE 1 VIAL IN NEBULIZER TWICE DAILY (MORNING AND EVENING) 05/29/2022 No Stop Date Acti ve Perforomist 20 mcg/2 mL solution for nebulization RxNorm: 12 59775 USE 1 VIAL IN NEBULIZER TWICE DAILY - morning and evening 05/26/2022 05/26/2022 Inac tive Perforomist 20 mcg/2 mL solution for nebulization RxNorm: 12 84449 USE 1 VIAL IN NEBULIZER TWICE DAILY - morning and evening 05/26/2022 05/26/2022 Inac tive budesonide 0.5 mg/2 mL suspension for nebulization RxNorm: 3 84530 USE 1 VIAL IN NEBULIZER TWICE DAILY - rinse mouth after treatment 05/26/2022 05/26/20 Inactive albuterol sulfate 2.5 mg/3 mL (0.083 %) solution for n ebulization RxNorm: 110277 USE 1 VIAL IN NEBULIZER DAILY - for rescue 05/26/2022 05/26/2022 Inactive budesonide 0.5 mg/2 mL suspension for nebulization RxNorm: 3 73320 USE 1 VIAL IN NEBULIZER TWICE DAILY - rinse mouth after treatment 05/26/2022 05/26/20 Inactive budesonide 0.5 mg/2 mL suspension for nebulization RxNorm: 3 33776 USE 1 VIAL IN NEBULIZER TWICE DAILY - rinse mouth after treatment 05/26/2022 05/26/20 Inactive losartan 50 mg tablet RxNorm: 294839 Take 1 Tablet(s) Oral two times a day 05/25/2022 05/25/2022 Inactive Synthroid 88 mcg tablet RxNorm: 970939 Take 1 Tablet(s) Oral QD 03/202206/22/2022 Inactive Astepro Allergy 205.5 mcg (0.15 %) nasal spray RxNorm: 02300 84 Take 1 [place] Nasal two times a day in each nostril 03/19/2022 No Stop Date Active Perforomist 20 mcg/2 mL solution for nebulization RxNorm: 12 01742 USE 1 VIAL IN NEBULIZER TWICE DAILY - morning and evening 02/17/2022 02/17/2022 Inac tive Xarelto 15 mg tablet RxNorm: 5225418 Take 1 Tablet(s) Oral QD 02/1706/09/2022 Inactive budesonide 0.5 mg/2 mL suspension for nebulization RxNorm: 3 28453 USE 1 VIAL IN NEBULIZER TWICE DAILY - rinse mouth after treatment 02/05/2022 02/06/20 Inactive Perforomist 20 mcg/2 mL solution for nebulization RxNorm: 12 77337 USE 1 VIAL IN NEBULIZER TWICE DAILY - morning and evening 02/05/2022 02/05/2022 Inac tive albuterol sulfate 2.5 mg/3 mL (0.083 %) solution for n ebulization RxNorm: 003744 USE 1 VIAL IN NEBULIZER DAILY - for rescue 02/05/2022 02/05/2022 Inactive ipratropium bromide 0.02 % solution for inhalation RxNorm: 8 37247 USE 1 VIAL IN NEBULIZER EVERY 4 HOURS - and as needed 02/05/2022 02/16/2022 Inactive albuterol sulfate HFA 90 mcg/actuation aerosol inhaler RxNor m: 4793022 Take 2 Puff(s) Inhalation Q4H as needed as needed 01/27/2022 No Stop Date Activ e Synthroid 88 mcg tablet RxNorm: 495429 Take 1 Tablet(s) Oral QD 01/26/2022 Inactive BRAND NAME ONLY losartan 50 mg tablet RxNorm: 253716 TAKE ONE TABLET BY MOUTH DAILY , REPLACES 25MG DOSE 01/15/2022 07/13/2022 Inactive Symbicort 160 mcg-4.5 mcg/actuation HFA aerosol inhaler RxNo rm: 6926806 2 Puff(s) Inhalation two times a day 10/30/2021 11/28/2021 Inactive Symbicort 160 mcg-4.5 mcg/actuation HFA aerosol inhaler RxNo rm: 7779745 2 Puff(s) Inhalation two times a day 10/30/2021 10/30/2021 Inactive Synthroid 88 mcg tablet RxNorm: 479663 Take 1 Tablet(s) Oral QD 10/29/2021 Inactive Breo Ellipta 200 mcg-25 mcg/dose powder for inhalation RxNor m: 0106514 Inhale 1 Puff(s) Inhalation QD 10/29/2021 10/29/2021 Inactive Breo Ellipta 200 mcg-25 mcg/dose powder for inhalation RxNor m: 8892487 Inhale 1 Puff(s) Inhalation QD 10/29/2021 10/29/2021 Inactive replaces a dvair Synthroid 88 mcg tablet RxNorm: 301972 Take 1 Tablet(s) Oral QD 10/28/2021 Inactive BRAND NAME ONLY fluticasone 113 mcg-salmeterol 14 mcg/actuation breath activated powdr RxNorm: 5973953 Inhale 1 Puff(s) Inhalation QAM 10/28/2021 10/28/2021 Inactive Flonase Allergy Relief 50 mcg/actuation nasal spray,suspensi on RxNorm: 5432201 2 [place] Nasal every night at bedtime 10/28/2021 10/12/2022 Inactive losartan 50 mg tablet RxNorm: 258546 1 Tablet(s) Oral QD replac es 25mg dose 10/20/2021 10/20/2021 Inactive metoprolol succinate ER 100 mg tablet,extended release 24 hr RxNorm: 234122 1 Tablet(s) Oral QD 09/23/2021 06/09/2022 Inactive potassium chloride ER 8 mEq capsule,extended release RxNorm: 150769 Take 1 Capsule(s) Oral QOD with lasix 09/15/2021 03/18/2022 Inactive Synthroid 88 mcg tablet RxNorm: 551970 Take 1 Tablet(s) Oral QD 12/202110/27/2021 Inactive BRAND NAME ONLY potassium chloride ER 8 mEq capsule,extended release RxNorm: 814505 1 Capsule(s) Oral QOD with lasix 09/11/2021 09/11/2021 Inactive metoprolol succinate ER 100 mg tablet,extended release 24 hr RxNorm: 787293 Take 1/2 Tablet(s) Oral QD 08/21/2021 09/22/2021 Inactive Synthroid 88 mcg tablet RxNorm: 273930 Take 1 Tablet(s) Oral QD 07/23/2021 Inactive BRAND NAME ONLY clindamycin HCl 300 mg capsule RxNorm: 502925 Take 1 Ca psule(s) Oral three times a day 07/03/2021 07/09/2021 Inactive clindamycin HCl 300 mg capsule RxNorm: 062526 Take 1 Ca psule(s) Oral three times a day 07/03/2021 07/03/2021 Inactive Synthroid 88 mcg tablet RxNorm: 787171 Take 1 Tablet(s) Oral QD 07/03/2021 Inactive BRAND NAME ONLY0 potassium chloride ER 8 mEq capsule,extended release RxNorm: 711554 1 Capsule(s) Oral QOD with lasix 06/26/2021 09/11/2021 Inactive potassium chloride ER 8 mEq tablet,extended release RxNorm: 872707 Take 2 Tablet(s) Oral two times a day 06/23/2021 06/25/2021 Inactive atorvastatin 20 mg tablet RxNorm: 695581 Take 1 Tablet(s) Oral QD 0 06/19/2021 06/09/2022 Inactive diltiazem CD 300 mg capsule,extended release 24 hr RxNorm: 8 49578 Take 1 Capsule(s) Oral QAM 06/19/2021 08/20/2021 Inactive potassium chloride ER 8 mEq tablet,extended release RxNorm: 362593 Take 2 Tablet(s) Oral two times a day 06/19/2021 06/23/2021 Inactive fluticasone 113 mcg-salmeterol 14 mcg/actuation breath activated powdr RxNorm: 9387461 Inhale 1 Puff(s) Inhalation QAM 06/19/2021 10/27/2021 Inactive furosemide 40 mg tablet RxNorm: 319613 Take 1 Tablet(s) Oral QAM 03/18/2022 Inactive alprazolam 0.25 mg tablet RxNorm: 881516 Take 1 Tablet(s) Oral Q8H as needed 06/19/2021 07/29/2021 Inactive gabapentin 100 mg capsule RxNorm: 730617 Take 2 Capsule (s) Oral every night at bedtime 06/19/2021 07/29/2021 Inactive losartan 25 mg tablet RxNorm: 046407 Take 1 Tablet(s) Oral QD 06/1910/20/2021 Inactive tramadol 50 mg tablet RxNorm: 275622 Take 1 Tablet(s) O ral three times a day as needed 06/19/2021 10/27/2021 Inactive Tylenol Arthritis Pain 650 mg tablet,extended release RxNorm : 9854739 Take 1 Tablet(s) Oral four times a day 05/05/2021 03/18/2022 Inactive Synthroid 88 mcg tablet RxNorm: 544128 Take 1 Tablet(s) Oral QD 04/30/2021 Inactive BRAND NAME ONLY0 Synthroid 88 mcg tablet RxNorm: 288967 1 Tablet(s) Oral QD 04/29/20 21 04/29/2021 Inactive Synthroid 88 mcg tablet RxNorm: 226722 1 Tablet(s) Oral QD 04/29/20 21 04/29/2021 Inactive magnesium oxide 400 mg (241.3 mg magnesium) tablet RxNorm: 1 13792 1 Tablet(s) Oral every night at bedtime 04/03/2021 No Stop Date Active Vitamin B12 1000mcg Tablet RxNorm: Take 1/2 Tablet(s) Oral QD 04/03/2021 No Stop Date Active aspirin 81 mg capsule RxNorm: 040579 1 Capsule(s) Oral QD No Stop Date Active doxazosin 1 mg tablet RxNorm: 595588 1 Tablet(s) Oral QPM 03/19/2021 04/02/2021 Inactive Cartia XT 240 mg capsule,extended release RxNorm: 516719 Take 1 Capsule(s) Oral QD 02/06/2021 06/18/2021 Inactive fluticasone propionate 50 mcg/actuation nasal spray,suspensi on RxNorm: 4244667 SHAKE LIQUID AND USE 2 SPRAYS IN EACH NOSTRIL EVERY NIGHT AT BEDTIME 12/19/2020 01/17/2021 Inactive diltiazem 120 mg tablet RxNorm: 560202 1 Tablet(s) Oral QD 12/12/1902/05/2021 Inactive Flonase Allergy Relief 50 mcg/actuation nasal spray,suspensi on RxNorm: 8773354 2 [place] Nasal every night at bedtime 11/21/2020 11/21/2020 Inactive diltiazem 120 mg tablet RxNorm: 277782 Take 1 Tablet(s) Oral tw o times a day 11/11/2020 12/10/2020 Inactive oxybutynin chloride 5 mg tablet RxNorm: 315760 Take 1 T ablet(s) Oral every night at bedtime for overactive bladder 11/11/2020 11/11/2020 Inactive oxybutynin chloride 5 mg tablet RxNorm: 557680 Take 1 T ablet(s) Oral every night at bedtime for overactive bladder 11/11/2020 11/11/2020 Inactive oxybutynin chloride 5 mg tablet RxNorm: 171388 TAKE 1 T ABLET BY MOUTH EVERY NIGHT AT BEDTIME FOR OVERACTIVE BLADDER 11/11/2020 02/05/2021 Inactive Patient requests 90 days supply MagOx 400 mg (241.3 mg magnesium) tablet RxNorm: 146867 TAKE 1 TABLET BY MOUTH EVERY OTHER DAY 10/28/2020 02/05/2021 Inactive Synthroid 75 mcg tablet RxNorm: 924008 TAKE 1 TABLET BY MOUTH EVERY DAY DIRECTED 09/06/2020 04/29/2021 Inactive diltiazem CD 120 mg capsule,extended release 24 hr RxNorm: 8 68894 1 Tablet(s) Oral QD 09/05/2020 11/10/2020 Inactive Synthroid 75 mcg tablet RxNorm: 417507 TAKE 1 TABLET BY MOUTH EVERY DAY DIRECTED 09/03/2020 09/05/2020 Inactive Synthroid 75 mcg tablet RxNorm: 672141 TAKE 1 TABLET BY MOUTH EVERY DAY DIRECTED 09/03/2020 09/02/2020 Inactive MagOx 400 mg (241.3 mg magnesium) tablet RxNorm: 375586 1 Table t(s) Oral QOD 07/30/2020 11/10/2020 Inactive MagOx 400 mg (241.3 mg magnesium) tablet RxNorm: 512104 1 Table t(s) Oral QOD 07/29/2020 07/29/2020 Inactive diltiazem CD 120 mg capsule,extended release 24 hr RxNorm: 8 66833 1 Tablet(s) Oral two times a day 07/29/2020 09/04/2020 Inactive diltiazem CD 120 mg capsule,extended release 24 hr RxNorm: 8 49359 1 Tablet(s) Oral two times a day 07/04/2020 07/03/2020 Inactive diltiazem CD 120 mg capsule,extended release 24 hr RxNorm: 8 15890 1 Tablet(s) Oral two times a day 07/04/2020 07/28/2020 Inactive Eliquis 5 mg tablet RxNorm: 7866789 TAKE 1 TABLET BY MOUTH TWICE DAILY 06/10/2020 02/16/2022 Inactive diltiazem CD 120 mg capsule,extended release 24 hr RxNorm: 8 06442 TAKE 1 CAPSULE BY MOUTH DAILY 06/10/2020 06/09/2020 Inactive Eliquis 5 mg tablet RxNorm: 3569935 TAKE 1 TABLET BY MOUTH TWICE DAILY 06/10/2020 06/09/2020 Inactive diltiazem CD 120 mg capsule,extended release 24 hr RxNorm: 8 55731 TAKE 1 CAPSULE BY MOUTH DAILY 06/10/2020 07/03/2020 Inactive Synthroid 75 mcg tablet RxNorm: 997798 TAKE 1 TABLET BY MOUTH EVERY DAY DIRECTED 06/10/2020 09/02/2020 Inactive Flonase Allergy Relief 50 mcg/actuation nasal spray,suspensi on RxNorm: 0844526 2 [place] Nasal every night at bedtime 04/26/2020 04/26/2020 Inactive Vitamin D3 25 mcg (1,000 unit) capsule RxNorm: 341870 3 Capsule (s) Oral QD 04/22/2020 No Stop Date Active MagOx 400 mg (241.3 mg magnesium) tablet RxNorm: 033789 1 Table t(s) Oral QOD 04/22/2020 04/21/2020 Inactive MagOx 400 mg (241.3 mg magnesium) tablet RxNorm: 831202 1 Table t(s) Oral QOD 04/22/2020 07/21/2020 Inactive prednisone 10 mg tablet RxNorm: 841753 1 Tablet(s) Oral two norma es a day 03/22/2020 03/27/2020 Inactive Eliquis 5 mg tablet RxNorm: 7255504 TAKE 1 TABLET BY MOUTH TWICE DAILY 03/15/2020 06/09/2020 Inactive Synthroid 75 mcg tablet RxNorm: 899519 TAKE 1 TABLET BY MOUTH EVERY DAY DIRECTED 03/15/2020 06/09/2020 Inactive furosemide 20 mg tablet RxNorm: 222963 1 Tablet(s) Oral QAM as needed 03/14/2020 06/20/2020 Inactive diltiazem CD 120 mg capsule,extended release 24 hr RxNorm: 8 24945 TAKE 1 CAPSULE BY MOUTH DAILY 03/14/2020 06/09/2020 Inactive amiodarone 200 mg tablet RxNorm: 333565 TAKE 1 TABLET BY MOUTH SIMON Y 03/14/2020 06/23/2020 Inactive potassium chloride ER 20 mEq tablet,extended release RxNorm: 920567 1 Tablet(s) Oral two times a day as needed 02/29/2020 06/20/2020 Inactive furosemide 20 mg tablet RxNorm: 587753 1 Tablet(s) Oral QAM as needed 02/29/2020 03/13/2020 Inactive Macrobid 100 mg capsule RxNorm: 237456 1 Capsule(s) Oral two ti mes a day 02/15/2020 02/18/2020 Inactive Macrobid 100 mg capsule RxNorm: 761114 1 Capsule(s) Oral two ti mes a day 02/15/2020 02/14/2020 Inactive magnesium oxide 400 mg (241.3 mg magnesium) tablet RxNorm: 1 90680 TAKE 1/2 TABLET BY MOUTH EVERY DAY 01/30/2020 02/21/2020 Inactive Flonase Allergy Relief 50 mcg/actuation nasal spray,suspensi on RxNorm: 9873376 2 [place] Nasal every night at bedtime 01/22/2020 04/25/2020 Inactive furosemide 20 mg tablet RxNorm: 675270 1 Tablet(s) Oral QOD 020 02/12/2020 Inactive potassium chloride ER 20 mEq tablet,extended release RxNorm: 017509 1 Tablet(s) Oral two times a day 01/04/2020 02/12/2020 Inactive potassium chloride ER 20 mEq tablet,extended release RxNorm: 786907 TAKE 1 TABLET BY MOUTH TWICE DAILY 01/03/2020 01/03/2020 Inactive diltiazem CD 120 mg capsule,extended release 24 hr RxNorm: 8 10995 1 Capsule(s) Oral QD 12/26/2019 03/13/2020 Inactive Colace 100 mg capsule RxNorm: 8804828 2 Capsule(s) Oral QD 12/26/19 20 03/18/2022 Inactive Flonase Allergy Relief 50 mcg/actuation nasal spray,suspensi on RxNorm: 5700849 2 SPRAY NASAL QHS 12/26/2019 12/28/2019 Inactive amiodarone 200 mg tablet RxNorm: 856612 1 Tablet(s) Oral QD 020 01/21/2020 Inactive Eliquis 5 mg tablet RxNorm: 3866931 1 Tablet(s) Oral two times a da y 12/26/2019 03/14/2020 Inactive potassium chloride ER 20 mEq tablet,extended release RxNorm: 194687 2 Tablet(s) Oral QD with furosemide 12/20/2019 01/21/2020 Inactive furosemide 20 mg tablet RxNorm: 381302 1 Tablet(s) Oral QAM 020 01/18/2020 Inactive Synthroid 75 mcg tablet RxNorm: 759975 1 Tablet(s) Oral QD 12/18/19 20 02/16/2020 Inactive potassium chloride ER 20 mEq tablet,extended release RxNorm: 182779 2 Tablet(s) Oral QOD with furosemide 11/29/2019 12/19/2019 Inactive furosemide 40 mg tablet RxNorm: 088320 1 Tablet(s) Oral QOD 020 12/19/2019 Inactive amlodipine 5 mg tablet RxNorm: 676911 1 Tablet(s) Oral every ni ght at bedtime 11/27/2019 12/18/2019 Inactive Lasix 40 mg tablet RxNorm: 491474 1 Tablet(s) Oral QAM 11/23/2019 Inactive potassium chloride ER 20 mEq tablet,extended release RxNorm: 19800612 TAKE 1 TABLET BY MOUTH TWICE DAILY 1 Tablet(s) Oral QD 11/23/2019 02/12/2020 Inactive Lasix 40 mg tablet RxNorm: 919143 1 Tablet(s) Oral QAM 11/23/2019 Inactive potassium chloride ER 20 mEq tablet,extended release RxNorm: 967010 TAKE 1 TABLET BY MOUTH TWICE DAILY 1 Tablet(s) Oral QD 11/23/2019 11/22/2019 Inactive cefdinir 300 mg capsule RxNorm: 417686 1 Capsule(s) Oral two ti mes a day 11/09/2019 11/16/2019 Inactive temazepam 15 mg capsule RxNorm: 835729 TAKE 1 CAPSULE B Y MOUTH EVERY NIGHT AT BEDTIME 11/06/2019 12/18/2019 Inactive magnesium oxide 400 mg (241.3 mg magnesium) tablet RxNorm: 1 35784 TAKE 1/2 TABLET BY MOUTH EVERY DAY 11/03/2019 2020 Inactive Synthroid 75 mcg tablet RxNorm: 040053 TAKE 1 TABLET BY MOUTH E 10/16/2019 12/17/2019 Inactive potassium chloride ER 20 mEq tablet,extended release RxNorm: 500463 TAKE 1 TABLET BY MOUTH TWICE DAILY 10/02/2019 11/28/2019 Inactive baclofen 10 mg tablet RxNorm: 733199 1/2-1 Tablet(s) Or al QPM as needed for muscle spasm 09/21/2019 01/21/2020 Inactive hydrochlorothiazide 25 mg tablet RxNorm: 402336 TAKE 1 TABLET BY MOUTH EVERY MORNING 09/21/2019 11/26/2019 Inactive amlodipine 5 mg tablet RxNorm: 130480 TAKE 1 TABLET BY MOUTH TW ICE DAILY 09/06/2019 11/27/2019 Inactive magnesium oxide 400 mg (241.3 mg magnesium) tablet RxNorm: 1 96239 TAKE 1/2 TABLET BY MOUTH EVERY DAY 09/06/2019 11/02/2019 Inactive temazepam 15 mg capsule RxNorm: 165337 TAKE 1 CAPSULE B Y MOUTH EVERY DAY AT BEDTIME 09/04/2019 11/05/2019 Inactive baclofen 10 mg tablet RxNorm: 073237 1/2-1 Tablet(s) Or al QPM as needed for muscle spasm 08/25/2019 09/20/2019 Inactive Synthroid 75 mcg tablet RxNorm: 939680 TAKE 1 TABLET BY MOUTH E 08/17/2019 10/15/2019 Inactive Cytomel 5 mcg tablet RxNorm: 139142 TAKE 1 TABLET BY MOUTH EVERY DA Y 08/13/2019 01/21/2020 Inactive potassium chloride ER 20 mEq tablet,extended release RxNorm: 980614 TAKE 1 TABLET BY MOUTH TWICE DAILY 07/06/2019 10/01/2019 Inactive Synthroid 75 mcg tablet RxNorm: 677633 1 Tablet(s) Oral QD Recheck labs in 2 months 06/21/2019 08/16/2019 Inactive Recheck labs in 2 months Synthroid 75 mcg tablet RxNorm: 764493 1 Tablet(s) Oral QD Recheck labs in 2 months 06/21/2019 06/20/2019 Inactive Recheck labs in 2 months amlodipine 5 mg tablet RxNorm: 940234 TAKE 1 TABLET BY MOUTH TW ICE DAILY 06/11/2019 09/05/2019 Inactive Diflucan 100 mg tablet RxNorm: 756920 1 Tablet(s) Oral QD 05/29/2019 06/04/2019 Inactive Zithromax Z-Topher 250 mg tablet RxNorm: 502770 Tablet(s) Oral as directed 05/29/2019 05/28/2019 Inactive Zithromax Z-Topher 250 mg tablet RxNorm: 582635 Tablet(s) Oral as directed 05/29/2019 05/29/2019 Inactive Diflucan 100 mg tablet RxNorm: 949418 1 Tablet(s) Oral QD 05/29/2019 05/28/2019 Inactive cefdinir 300 mg capsule RxNorm: 506251 1 Capsule(s) Oral two ti mes a day 05/19/2019 05/22/2019 Inactive Synthroid 50 mcg tablet RxNorm: 936881 1 TABLET(S) PO QD 05/18/2019 0 06/20/2019 Inactive lab draw in 2 months to recheck thyroid temazepam 15 mg capsule RxNorm: 029151 TAKE 1 CAPSULE B Y MOUTH EVERY DAY AT BEDTIME 05/18/2019 07/16/2019 Inactive Cytomel 5 mcg tablet RxNorm: 251286 1 Tablet(s) Oral QD 05/18/2019 Inactive cefdinir 300 mg capsule RxNorm: 058449 1 Capsule(s) Oral two ti mes a day 05/18/2019 05/18/2019 Inactive magnesium oxide 400 mg (241.3 mg magnesium) tablet RxNorm: 1 51751 1/2 TABLET(S) PO QD 05/10/2019 05/10/2019 Inactive temazepam 15 mg capsule RxNorm: 456184 TAKE 1 CAPSULE B Y MOUTH EVERY DAY AT BEDTIME 05/09/2019 05/16/2019 Inactive magnesium oxide 400 mg (241.3 mg magnesium) tablet RxNorm: 1 38319 1/2 TABLET(S) PO QD 05/02/2019 05/09/2019 Inactive nystatin 100,000 unit/mL oral suspension RxNorm: 637376 5 Milliliter(s) Oral four times a day 04/24/2019 05/07/2019 Inactive cephalexin 500 mg capsule RxNorm: 283680 1 Capsule(s) Oral thre e times a day 04/21/2019 04/27/2019 Inactive cephalexin 500 mg capsule RxNorm: 567818 1 Capsule(s) Oral thre e times a day 04/21/2019 04/20/2019 Inactive potassium chloride ER 20 mEq tablet,extended release RxNorm: 998343 1 Tablet(s) Oral two times a day 04/10/2019 07/05/2019 Inactive Patient r equests 90 days supplyPatient requests 90 days supply nystatin 100,000 unit/mL oral suspension RxNorm: 661740 5 Milliliter(s) Oral four times a day 04/10/2019 04/23/2019 Inactive Diflucan 100 mg tablet RxNorm: 191648 1 Tablet(s) Oral QD 04/10/2019 04/17/2019 Inactive temazepam 15 mg capsule RxNorm: 752945 TAKE 1 CAPSULE B Y MOUTH EVERY DAY AT BEDTIME 04/04/2019 05/03/2019 Inactive Synthroid 50 mcg tablet RxNorm: 674387 1 TABLET(S) PO QD 04/04/2019 1 07/18/2018 Inactive lab draw in 2 months to recheck thyroid magnesium oxide 400 mg (241.3 mg magnesium) tablet RxNorm: 1 85632 1 Tablet(s) Oral QOD 04/04/2019 02/21/2020 Inactive hydrochlorothiazide 25 mg tablet RxNorm: 066350 1 Tablet(s) Oral QA M 03/28/2019 09/20/2019 Inactive amlodipine 5 mg tablet RxNorm: 849836 1 TABLET(S) PO BID 03/15/2019 0 06/12/2019 Inactive magnesium oxide 400 mg (241.3 mg magnesium) tablet RxNorm: 1 75722 1/2 TABLET(S) PO QD 03/06/2019 04/03/2019 Inactive Cytomel 5 mcg tablet RxNorm: 125056 1 Tablet(s) PO QD 02/20/201902/05 Inactive Cytomel 5 mcg tablet RxNorm: 295623 1 Tablet(s) PO QD 02/20/201905/07 Inactive amlodipine 5 mg tablet RxNorm: 200307 1 Tablet(s) PO BID 02/16/2019 0 02/15/2019 Inactive amlodipine 5 mg tablet RxNorm: 373772 1 Tablet(s) PO BID 02/16/2019 1 07/17/2018 Inactive amlodipine 5 mg tablet RxNorm: 870472 1 Tablet(s) PO BID 02/16/2019 0 02/16/2019 Inactive Synthroid 50 mcg tablet RxNorm: 837291 1 TABLET(S) PO QD 02/13/2019 1 Inactive Synthroid 50 mcg tablet RxNorm: 665851 1 TABLET(S) PO QD 01/16/2019 0 02/12/2019 Inactive magnesium oxide 400 mg (241.3 mg magnesium) tablet RxNorm: 1 10823 1/2 Tablet(s) PO QD 01/11/2019 03/05/2019 Inactive temazepam 15 mg capsule RxNorm: 911511 1 Capsule(s) PO QHS 01/04/20 19 04/03/2019 Inactive cefdinir 300 mg capsule RxNorm: 080071 1 Capsule(s) PO BID 12/22/19 19 12/20/2018 Inactive cefdinir 300 mg capsule RxNorm: 888411 1 Capsule(s) PO BID 12/22/19 19 12/24/2018 Inactive hydrochlorothiazide 25 mg tablet RxNorm: 289225 1 Tablet(s) PO QAM 12/19/2018 03/27/2019 Inactive magnesium oxide 400 mg (241.3 mg magnesium) tablet RxNorm: 1 68663 1/2 Tablet(s) PO QD 12/15/2018 01/11/2019 Inactive magnesium oxide 400 mg (241.3 mg magnesium) tablet RxNorm: 1 28120 1/2 Tablet(s) PO QD 12/15/2018 12/14/2018 Inactive Flonase Allergy Relief 50 mcg/actuation nasal spray,suspensi on RxNorm: 1337135 2 [place] NASAL QHS 11/09/2018 12/11/2018 Inactive temazepam 15 mg capsule RxNorm: 078137 1 Capsule(s) PO QHS 11/08/19 19 01/02/2019 Inactive Synthroid 50 mcg tablet RxNorm: 188781 1 Tablet(s) PO QD 10/21/2018 0 01/15/2019 Inactive potassium chloride ER 20 mEq tablet,extended release RxNorm: 662256 Tablet(s) 1 TABLET(S) PO BID 10/19/2018 04/09/2019 Inactive Patient reque sts 90 days supplyPatient requests 90 days supply Flonase Allergy Relief 50 mcg/actuation nasal spray,suspensi on RxNorm: 7894834 2 [place] NASAL QHS 10/14/2018 12/11/2018 Inactive Patient reques ts 90 days supply Flonase Allergy Relief 50 mcg/actuation nasal spray,suspensi on RxNorm: 1698779 2 [place] NASAL QHS 10/13/2018 10/13/2018 Inactive temazepam 15 mg capsule RxNorm: 928142 1 Capsule(s) PO QHS 10/06/19 19 11/06/2018 Inactive Synthroid 50 mcg tablet RxNorm: 977373 1 Tablet(s) PO QD 10/05/2018 0 10/20/2018 Inactive promethazine 6.25 mg/5 mL oral syrup RxNorm: 919263 5 M illiliter(s) PO Q6H as needed for cough 09/30/2018 12/11/2018 Inactive promethazine-DM 6.25 mg-15 mg/5 mL oral syrup RxNorm: 154843 5 PO Q6H as needed for cough 09/30/2018 12/11/2018 Inactive prednisone 10 mg tablet RxNorm: 920211 1 Tablet(s) PO QD 09/27/2018 0 09/26/2018 Inactive prednisone 10 mg tablet RxNorm: 714661 1 Tablet(s) PO QD 09/27/2018 0 10/03/2018 Inactive cefdinir 300 mg capsule RxNorm: 579053 1 Capsule(s) PO BID 09/24/1909/29/2018 Inactive Macrobid 100 mg capsule RxNorm: 820563 1 Capsule(s) PO BID 09/21/1909/25/2018 Inactive potassium chloride ER 20 mEq tablet,extended release RxNorm: 833701 1 TABLET(S) PO BID 09/14/2018 10/13/2018 Inactive Patient reques ts 90 days supplyPatient requests 90 days supply potassium chloride ER 20 mEq tablet,extended release RxNorm: 104518 1 Tablet(s) PO BID 09/12/2018 09/13/2018 Inactive Patient reques ts 90 days supply Macrobid 100 mg capsule RxNorm: 507789 1 Capsule(s) PO BID 09/06/1909/11/2018 Inactive potassium chloride ER 20 mEq tablet,extended release RxNorm: 194085 1 TABLET(S) PO QD 1 TABLET(S) PO QD 08/26/2018 09/11/2018 Inactive Patien t requests 90 days supply potassium chloride ER 20 mEq tablet,extended release RxNorm: 529335 1 Tablet(s) PO QD 1 TABLET(S) PO QD 08/26/2018 08/25/2018 Inactive potassium chloride ER 20 mEq tablet,extended release RxNorm: 168256 1 TABLET(S) PO QD 08/25/2018 08/25/2018 Inactive Synthroid 50 mcg tablet RxNorm: 167464 1 TABLET(S) PO QD DAW1 08/2309/04/2018 Inactive potassium chloride ER 20 mEq tablet,extended release RxNorm: 014600 1 Tablet(s) PO QD 07/28/2018 08/24/2018 Inactive potassium chloride ER 20 mEq tablet,extended release RxNorm: 966916 1 Tablet(s) PO QD 07/28/2018 07/27/2018 Inactive hydrochlorothiazide 25 mg tablet RxNorm: 746365 1 Tablet(s) PO QAM 06/27/2018 12/18/2018 Inactive Synthroid 50 mcg tablet RxNorm: 742864 1 Tablet(s) PO QD 06/2708/22/2018 Inactive Synthroid 50 mcg tablet RxNorm: 421666 1 TABLET(S) PO QD 06/1306/26/2018 Inactive Synthroid 75 mcg tablet RxNorm: 472218 1 TABLET(S) PO QD 06/13/2018 0 09/04/2018 Inactive BRAND ONLY mupirocin 2 % topical ointment RxNorm: 943362 1 Applica tion TOP BID to affected area as needed 05/03/2018 09/14/2018 Inactive hydrochlorothiazide 25 mg tablet RxNorm: 005320 1 TABLET(S) PO QD 1 07/02/2017 06/26/2018 Inactive Synthroid 50 mcg tablet RxNorm: 526814 1 Tablet(s) PO QD 04/1506/12/2018 Inactive Synthroid 50 mcg tablet RxNorm: 920622 1 Tablet(s) PO QD 04/1504/14/2018 Inactive Synthroid 75 mcg tablet RxNorm: 537407 1 Tablet(s) PO QD 03/15/2018 1 06/14/2017 Inactive BRAND ONLY temazepam 15 mg capsule RxNorm: 689800 1 Capsule(s) PO QHS 03/15/20 18 06/12/2018 Inactive Synthroid 75 mcg tablet RxNorm: 241560 1 Tablet(s) PO QD 01/27/2018 1 Inactive BRAND ONLY Synthroid 75 mcg tablet RxNorm: 590721 1 Tablet(s) PO QD (6 day s per week) 01/17/2018 01/26/2018 Inactive BRAND ONLY Duexis 800 mg-26.6 mg tablet RxNorm: 5272565 1/2 Tablet(s) PO BID 0 10/20/2017 10/22/2017 Inactive Synthroid 75 mcg tablet RxNorm: 981608 1 Tablet(s) PO QD 09/17/2017 1 Inactive BRAND ONLY hydrochlorothiazide 25 mg tablet RxNorm: 724930 1 TABLET(S) PO QD 0 08/30/2017 05/01/2018 Inactive hydrochlorothiazide 25 mg tablet RxNorm: 925151 1 Tablet(s) PO QAM 06/03/2017 09/14/2018 Inactive hydrochlorothiazide 12.5 mg tablet RxNorm: 638975 1 Tablet(s) PO QA M 05/25/2017 06/02/2017 Inactive Synthroid 75 mcg tablet RxNorm: 059056 1 Tablet(s) PO QD 05/14/2017 0 09/17/2017 Inactive BRAND ONLY Restoril 15 mg capsule RxNorm: 811541 TAKE 1 CAPSULE BY MOUTH EVERY NIGHT AT BEDTIME NEEDED 03/05/2017 04/02/2017 Inactive Synthroid 75 mcg tablet RxNorm: 056661 1 Tablet(s) PO QD 01/18/2017 1 07/15/2016 Inactive BRAND ONLY Synthroid 50 mcg tablet RxNorm: 083083 1 Tablet(s) PO QD 01/13/2017 0 01/17/2017 Inactive tizanidine 2 mg tablet RxNorm: 629315 1 Tablet(s) PO QHS for spasm 01/04/2017 03/21/2017 Inactive tizanidine 2 mg tablet RxNorm: 469268 1 Tablet(s) PO QHS for spasm 12/17/2016 01/04/2017 Inactive hydrochlorothiazide 25 mg tablet RxNorm: 469069 1 Tablet(s) PO QD 0 12/04/2016 01/03/2017 Inactive Synthroid 50 mcg tablet RxNorm: 737741 1 Tablet(s) PO QD as directe d 11/18/2016 01/13/2017 Inactive Synthroid 75 mcg tablet RxNorm: 918007 1 Tablet(s) PO QD as directe d 11/18/2016 01/10/2017 Inactive Restoril 15 mg capsule RxNorm: 331677 1 Capsule(s) PO QHS as ne eded for sleep 11/16/2016 03/05/2017 Inactive losartan 50 mg tablet RxNorm: 595701 1 Tablet(s) PO BID 10/19/2016 Inactive prednisone 20 mg tablet RxNorm: 144868 1 Tablet(s) PO QD 10/08/2016 0 10/07/2016 Inactive clindamycin 300 mg capsule RxNorm: 463615 1 Capsule(s) PO TID 10/0810/17/2016 Inactive prednisone 20 mg tablet RxNorm: 206849 1 Tablet(s) PO QD 10/08/2016 0 10/12/2016 Inactive clindamycin 300 mg capsule RxNorm: 667133 1 Capsule(s) PO TID 10/0810/07/2016 Inactive cephalexin 500 mg capsule RxNorm: 119709 1 Capsule(s) PO TID 201610/07/2016 Inactive levothyroxine 75 mcg tablet RxNorm: 820469 TAKE 1 TABLET BY TONE EVERY DAY 10/02/2016 10/04/2016 Inactive levothyroxine 75 mcg tablet RxNorm: 685623 1 Tablet(s) PO QD 201610/04/2016 Inactive Restoril 15 mg capsule RxNorm: 495909 1 Capsule(s) PO QHS 08/23/2016 11/15/2016 Inactive levothyroxine 75 mcg tablet RxNorm: 775773 1 Tablet(s) PO QD 201608/19/2016 Inactive levothyroxine 75 mcg tablet RxNorm: 016887 1 Tablet(s) PO QD 201609/09/2016 Inactive levothyroxine 50 mcg capsule RxNorm: 431171 1 Capsule(s) PO QD 06/201608/19/2016 Inactive hydrochlorothiazide 25 mg tablet RxNorm: 685174 1 Tablet(s) PO QD 0 06/23/2016 12/03/2016 Inactive amoxicillin 500 mg tablet RxNorm: 960320 1 Tablet(s) PO TID 016 06/03/2016 Inactive doxycycline hyclate 100 mg capsule RxNorm: 5649476 1 Capsule(s) PO BID 06/03/2016 06/12/2016 Inactive doxycycline hyclate 100 mg capsule RxNorm: 6017170 1 Capsule(s) PO BID 06/03/2016 06/02/2016 Inactive levothyroxine 75 mcg tablet RxNorm: 712358 1 Tablet(s) PO QD 201505/19/2016 Inactive losartan 50 mg tablet RxNorm: 645793 1 TABLET(S) PO BID 04/07/2016 Inactive metoprolol succinate ER 50 mg tablet,extended release 24 hr RxNorm: 001285 1 TABLET(S) PO QHS AND 1/2 TAB IN THE AM--REPLACES 25MG DOSE 04/03/2016 07/27/2016 Inactive Restoril 15 mg capsule RxNorm: 698351 1 Capsule(s) PO QHS as ne eded for sleep 02/24/2016 05/23/2016 Inactive hydrochlorothiazide 12.5 mg tablet RxNorm: 273037 1 Tab let(s) PO QD replaces 25mg dose 01/13/2016 06/22/2016 Inactive metoprolol succinate ER 50 mg tablet,extended release 24 hr RxNorm: 831196 1 Tablet(s) PO QHS and 1/2 tab in the AM--replaces 25mg dose 10/17/2015 04/02/2016 Inactive amlodipine 2.5 mg tablet RxNorm: 803533 1 Tablet(s) PO QHS 10/08/19 16 10/07/2015 Inactive amlodipine 2.5 mg tablet RxNorm: 265681 1 Tablet(s) PO QHS 10/08/19 16 10/16/2015 Inactive losartan 50 mg tablet RxNorm: 510941 1 TABLET(S) PO BID 09/23/2015 Inactive Medrol (Topher) 4 mg tablets in a dose pack RxNorm: 932624 Take as directed 09/03/2015 10/07/2015 Inactive Lasix 40 mg tablet RxNorm: 862499 1 TABLET(S) PO QD PRN FOR SWELLIN G 08/27/2015 12/04/2015 Inactive Lasix 40 mg tablet RxNorm: 504612 1 Tablet(s) PO QD prn for swellin g 08/01/2015 08/26/2015 Inactive losartan 50 mg tablet RxNorm: 622673 1 Tablet(s) PO BID 06/27/2015 Inactive Zyrtec 10 mg tablet RxNorm: 6547473 1 Tablet(s) PO QD 12/05/2015 Active magnesium oxide 400 mg (241.3 mg magnesium) tablet RxNorm: 21947 1 oral 05/25/2022 Active levothyroxine 50 mcg capsule RxNorm: 518644 1 Capsule(s) PO QD 0206/201607/07/2016 Inactive sotalol 80 mg tablet RxNorm: 5555432 1/2 Tablet(s) PO BID 09/05/2018 09/04/2018 Inactive melatonin 1 mg tablet RxNorm: 897410 1 Tablet(s) PO QHS as need ed for sleep 12/05/2015 12/04/2015 Inactive levothyroxine 75 mcg tablet RxNorm: 857988 1 Tablet(s) PO 6 day s a week 07/08/2016 07/07/2016 Inactive Vitamin D3 1,000 unit tablet RxNorm: 736754 1 Tablet(s) PO QD 12/0412/04/2015 Inactive sotalol 80 mg tablet RxNorm: 3178234 1 Tablet(s) PO BID 08/30/2017 Inactive Synthroid 75 mcg tablet RxNorm: 293360 2 Tablet(s) PO M, W, F 09/1509/14/2018 Inactive tizanidine 2 mg tablet RxNorm: 290931 1 Tablet(s) PO QHS for spasm 12/17/2016 12/16/2016 Inactive Nasacort AQ 55 mcg nasal spray aerosol RxNorm: 1031192 [place] ANNELIESE AL as needed 12/12/2018 12/11/2018 Inactive fluocinonide 0.05 % topical gel RxNorm: 505774 TOP as needed on gum s 07/28/2016 07/27/2016 Inactive Flonase Allergy Relief 50 mcg/actuation nasal spray,suspensi on RxNorm: 8545512 2 [place] NASAL QHS 10/13/2018 10/12/2018 Inactive Synthroid 50 mcg tablet RxNorm: 270716 1 Tablet(s) PO Tu, Thur, Sat, Sun 09/20/2018 09/19/2018 Inactive Osteo Bi-Flex (5-Loxin) 1,500 mg-400 unit-100 mg tablet RxNo rm: 1 Tablet(s) PO QD 12/05/2015 12/04/2015 Inactive hydrochlorothiazide 25 mg tablet RxNorm: 541159 1/2 Tablet(s) PO QA M 01/13/2016 01/12/2016 Inactive metoprolol succinate ER 25 mg tablet,extended release 24 hr RxNorm: 748743 1 Tablet(s) PO QD 10/17/2015 10/16/2015 Inactive promethazine-DM 6.25 mg-15 mg/5 mL oral syrup RxNorm: 582465 5 PO Q6H as needed for cough 09/30/2018 09/29/2018 Inactive Synthroid 50 mcg tablet RxNorm: 102149 1 Tablet(s) PO QD 10/05/2018 0 10/04/2018 Inactive mupirocin 2 % topical ointment RxNorm: 288513 1 Applica tion TOP BID to affected area as needed 05/03/2018 05/02/2018 Inactive hydrochlorothiazide 25 mg tablet RxNorm: 493913 1 Tablet(s) PO QOD 01/13/2016 01/12/2016 Inactive Vitamin D3 1000 units Capsule RxNorm: 1 Capsule(s) PO QD 9 12/11/2018 Inactive levothyroxine 75 mcg tablet RxNorm: 016977 1 Tablet(s) PO QD 201505/07/2016 Inactive potassium chloride ER 10 mEq capsule,extended release RxNorm : 755283 1 Capsule(s) PO QD 12/05/2015 12/04/2015 Inactive aspirin 81 mg tablet RxNorm: 366661 1 Tablet(s) PO QHS 01/22/2020 Inactive Claritin 10 mg tablet RxNorm: 018976 1 Tablet(s) PO QD 12/05/2015 Inactive Vitamin B12 1000mcg Tablet RxNorm: 1/2 Tablet(s) PO QD 12/12/2018 12/11/2018 Inactive temazepam 15 mg capsule RxNorm: 362608 1 Capsule(s) PO QHS 03/15/20 18 03/14/2018 Inactive hydrochlorothiazide 25 mg tablet RxNorm: 674882 1 Tablet(s) PO QAM 12/05/2015 12/04/2015 Inactive sotalol 80 mg tablet RxNorm: 6872700 1/2 Tablet(s) PO QD 09/22/2018 0 09/21/2018 Inactive mupirocin 2 % topical ointment RxNorm: 559785 TOP as needed 017 08/24/2016 Inactive hydrochlorothiazide 25 mg tablet RxNorm: 863070 1/2 Tablet(s) PO QA M 05/25/2017 05/24/2017 Inactive amlodipine 10 mg tablet RxNorm: 095052 1 Tablet(s) PO QD 02/16/2019 0 02/15/2019 Inactive Citracal + D Slow Release 600 mg calcium-500 unit tablet,ext .release RxNorm: 2 Tablet(s) PO QD 02/16/2019 02/15/2019 Inactive triamcinolone acetonide 0.1 % topical cream RxNorm: 8513220 TOP as needed 12/12/2018 12/11/2018 Inactive Restoril 15 mg capsule RxNorm: 991250 1 Capsule(s) PO QHS 02/24/2016 02/23/2016 Inactive hydrochlorothiazide 25 mg tablet RxNorm: 946926 1/2 Tablet(s) PO QO D 01/13/2016 01/12/2016 Inactive promethazine 6.25 mg/5 mL oral syrup RxNorm: 006536 5 M illiliter(s) PO Q6H as needed for cough 09/30/2018 09/29/2018 Inactive Centrum Silver Women 8 mg iron-400 mcg-300 mcg tablet RxNorm : 1 Tablet(s) PO QD 08/30/2017 08/29/2017 Inactive losartan 50 mg tablet RxNorm: 760948 1 Tablet(s) PO QHS 01/04/2017 Inactive levothyroxine 75 mcg tablet RxNorm: 075932 1 Tablet(s) PO 6 day s a week 10/05/2016 10/04/2016 Inactive losartan 50 mg tablet RxNorm: 106230 2 Tablet(s) PO QD 06/27/2015 Inactive Culturelle 10 billion cell capsule RxNorm: 045562 1-2 Capsule(s ) PO QD 05/10/2019 05/09/2019 Inactive Culturelle 10 billion cell capsule RxNorm: 278188 1 Capsule(s) PO Q D 08/30/2017 08/29/2017 Inactive Synthroid 75 mcg tablet RxNorm: 029785 1 Tablet(s) PO MWF 01/18/2017 01/17/2017 Inactive Medication Administered No Medication Administered data Immunizations Vaccine Codes Dose Date Status Influenza CVX: 135 0.5 02/27/2021 Complete Influenza CVX: 135 0.5 03/02/2019 Complete Influenza CVX: 135 0.5 03/02/2019 Complete Influenza CVX: 135 0.5 03/03/2018 Complete Influenza CVX: 135 0.5 03/08/2017 Complete Influenza CVX: 135 0.5 03/19/2016 Complete Pneumococcal CVX: 133 0.5 ml 01/13/2016 Complete Results Observation Observation Code Item Item Code Result Date [facility] Location COMPLETE BLOOD COUNT [id number] WBC 6.5 10e9/L 09/27/19 19 Unknown COMPLETE BLOOD COUNT [id number] RBC 4.22 10e12/L 2018 Unknown COMPLETE BLOOD COUNT [id number] HEMOGLOBIN 13.3 g/dL 09/27/19 19 Unknown COMPLETE BLOOD COUNT [id number] HEMATOCRIT 38.7 % 09/27/19 19 Unknown COMPLETE BLOOD COUNT [id number] MCV 91.7 fL 9 Unknown COMPLETE BLOOD COUNT [id number] MCH 31.5 pg 9 Unknown COMPLETE BLOOD COUNT [id number] MCHC 34.4 g/dL 9 Unknown COMPLETE BLOOD COUNT [id number] PLATELET COUNT 326 10e9/L Unknown COMPLETE BLOOD COUNT [id number] Mean Plt Volume 8.9 fL Unknown COMPLETE BLOOD COUNT [id number] Neut Auto 69.0 % 9 Unknown COMPLETE BLOOD COUNT [id number] Lymph Auto 16.5 % 09/27/19 19 Unknown COMPLETE BLOOD COUNT [id number] [place] Auto 8.3 % 9 Unknown COMPLETE BLOOD COUNT [id number] Eos Auto 5.9 % 9 Unknown COMPLETE BLOOD COUNT [id number] RDW 12.2 % 9 Unknown COMPLETE BLOOD COUNT [id number] Baso Auto 0.3 % 9 Unknown COMPLETE BLOOD COUNT [id number] Neutrophil Abs 4.48 10e9/L Unknown COMPLETE BLOOD COUNT [id number] Lymphocyte Abs 1.07 10e9/L Unknown COMPLETE BLOOD COUNT [id number] Monocyte Abs 0.54 10e9/L 09/06 Unknown COMPLETE BLOOD COUNT [id number] Eosinophil Abs 0.38 10e9/L Unknown COMPLETE BLOOD COUNT [id number] RDW-SD 39.8 fL 9 Unknown COMPLETE BLOOD COUNT [id number] Basophil Abs 0.02 10e9/L 09/06 Unknown GFR CALC [id number] GFR Afr Amr >60 mL/min 12/12/2015 Unknow n GFR CALC [id number] GFR Non Afr Amr >60 mL/min 12/12/2015 [place] [address] Glucose 100 mg/dL 12/11 [place] [address] CREATININE 0.78 mg/dL 12/2015 [place] [address] BUN 14 mg/dL 12/11 [place] [address] SODIUM 132 mmol/L 12/2015 [place] [address] POTASSIUM 3.6 mmol/L 12/2015 [place] [address] CHLORIDE 97 mmol/L 12/11 [place] [address] Bicarbonate 28 mmol/L 12/2015 [place] [address] AGAP 7 mmol/L 12/11 [place] [address] CALCIUM 9.3 mg/dL 12/11 [place] [address] Glucose 92 mg/dL 12/04 [place] [address] CREATININE 0.76 mg/dL [place] [address] BUN 8 mg/dL 12/04 [place] [address] SODIUM 133 mmol/L 11/07 [place] [address] POTASSIUM 4.1 mmol/L 11/07 [place] [address] CHLORIDE 97 mmol/L 12/04 [place] [address] Bicarbonate 27 mmol/L [place] [address] AGAP 9 mmol/L 12/04 [place] [address] CALCIUM 9.8 mg/dL 12/04 Unknown GFR CALC [id number] GFR Afr Amr >60 mL/min 12/05/2015 Unknow n COMPREHENSIVE METABOLIC 87456 AST 36 U/L 2015 Unknown COMPREHENSIVE METABOLIC 74875 ALT 41 U/L 2015 Unknown COMPREHENSIVE METABOLIC 95101 BUN 11 mg/dL 2015 Unknown COMPREHENSIVE METABOLIC 04476 ALBUMIN 4.2 g/dL 2015 Unknown COMPREHENSIVE METABOLIC 58260 CHLORIDE 93 mmol/L 2015 Unknown COMPREHENSIVE METABOLIC 44576 Bili Total 1.0 mg/dL 11/24 Unknown COMPREHENSIVE METABOLIC 55293 ALK PHOS 79 U/L 2015 Unknown COMPREHENSIVE METABOLIC 58453 SODIUM 128 mmol/L 11/24 Unknown COMPREHENSIVE METABOLIC 94486 CREATININE 0.65 mg/dL 11/06 Unknown COMPREHENSIVE METABOLIC 35053 CALCIUM 9.4 mg/dL 2015 Unknown COMPREHENSIVE METABOLIC 88862 POTASSIUM 3.7 mmol/L 11/24 Unknown COMPREHENSIVE METABOLIC 93531 Total Protein 6.9 g/dL Unknown COMPREHENSIVE METABOLIC 77861 Glucose 101 mg/dL 2015 Unknown COMPREHENSIVE METABOLIC 49012 Bicarbonate 27 mmol/L 11/06 Unknown COMPREHENSIVE METABOLIC 35539 AGAP 8 mmol/L 2015 Unknown THYROID STIMULATING HORMONE 22383 TSH 2.983 uIU/mL 11/25/2015 Unknown COMPLETE BLOOD COUNT [id number] WBC 9.0 10e9/L 11/25/19 16 Unknown COMPLETE BLOOD COUNT [id number] RBC 3.98 10e12/L 2015 Unknown COMPLETE BLOOD COUNT [id number] HEMOGLOBIN 12.8 g/dL 11/25/19 16 Unknown COMPLETE BLOOD COUNT [id number] HEMATOCRIT 36.1 % 11/25/19 16 Unknown COMPLETE BLOOD COUNT [id number] MCV 90.7 fL 6 Unknown COMPLETE BLOOD COUNT [id number] MCH 32.2 pg 6 Unknown COMPLETE BLOOD COUNT [id number] MCHC 35.5 g/dL 6 Unknown COMPLETE BLOOD COUNT [id number] PLATELET COUNT 291 10e9/L Unknown COMPLETE BLOOD COUNT [id number] Mean Plt Volume 8.8 fL Unknown COMPLETE BLOOD COUNT [id number] Neut Auto 72.2 % 6 Unknown COMPLETE BLOOD COUNT [id number] Lymph Auto 19.4 % 11/25/19 16 Unknown COMPLETE BLOOD COUNT [id number] Kendall Auto 7.4 % 6 Unknown COMPLETE BLOOD COUNT [id number] RDW 11.8 % 6 Unknown COMPLETE BLOOD COUNT [id number] Eos Auto 0.7 % 6 Unknown COMPLETE BLOOD COUNT [id number] Baso Auto 0.3 % 6 Unknown COMPLETE BLOOD COUNT [id number] Neutrophil Abs 6.50 10e9/L Unknown COMPLETE BLOOD COUNT [id number] Lymphoctye Abs 1.75 10e9/L Unknown COMPLETE BLOOD COUNT [id number] Monocyte Abs 0.67 10e9/L 11/06 Unknown COMPLETE BLOOD COUNT [id number] Eosinophil Abs 0.06 10e9/L Unknown COMPLETE BLOOD COUNT [id number] RDW-SD 38.1 fL 6 Unknown COMPLETE BLOOD COUNT [id number] Basophil Abs 0.03 10e9/L 11/06 Unknown GFR CALC [id number] GFR Afr Amr >60 mL/min 11/25/2015 Unknow n GFR CALC [id number] GFR Non Afr Amr >60 mL/min 11/25/2015 Un known Procedures Procedure Codes Date SARSCOV CORONAVIRUS AG IA CPT-4: 13630 01/27/2022 CEFTRIAXONE SODIUM INJECTION CPT-4: J0696 01/27/2022 THER/PROPH/DIAG INJ SC/IM CPT-4: 66457 01/27/2022 URINALYSIS NONAUTO W/O SCOPE CPT-4: 21303 05/12/2021 RML URINE CULTURE/ COLONY COUNT CPT-4: 61848 05/12/20 21 FLU VACC PRSV FREE INC ANTIG 65 AND OLDER CPT-4: 49307 02/27/2021 ADMIN INFLUENZA VIRUS VAC CPT-4: G0008 02/27/2021 FLU VACC PRSV FREE INC ANTIG 65 AND OLDER CPT-4: 16195 02/27/2021 RML URINE CULTURE/ COLONY COUNT CPT-4: 22344 11/12/19 21 URINALYSIS NONAUTO W/O SCOPE CPT-4: 54737 11/11/2020 DESTRUCT PREMALG LESION (Cryosurgery) CPT-4: 92456 RML URINE CULTURE/ COLONY COUNT CPT-4: 52418 02/20/20 20 URINALYSIS NONAUTO W/O SCOPE CPT-4: 26289 02/13/2020 RML URINE CULTURE/ COLONY COUNT CPT-4: 51383 02/13/20 20 CEFTRIAXONE SODIUM INJECTION CPT-4: J0696 02/13/2020 THER/PROPH/DIAG INJ SC/IM CPT-4: 78631 02/13/2020 URINALYSIS NONAUTO W/O SCOPE CPT-4: 54930 11/09/2019 RML URINE CULTURE/ COLONY COUNT CPT-4: 89773 11/09/19 20 CEFTRIAXONE SODIUM INJECTION CPT-4: J0696 05/18/2019 THER/PROPH/DIAG INJ SC/IM CPT-4: 00789 05/18/2019 CEFTRIAXONE SODIUM INJECTION CPT-4: J0696 05/17/2019 THER/PROPH/DIAG INJ SC/IM CPT-4: 08853 05/17/2019 RML URINE CULTURE/ COLONY COUNT CPT-4: 00866 05/08/20 19 THROAT CULTURE CPT-4: 33233 05/08/2019 URINALYSIS NONAUTO W/O SCOPE CPT-4: 72130 04/21/2019 RML URINE CULTURE/ COLONY COUNT CPT-4: 41734 04/21/20 19 CEFTRIAXONE SODIUM INJECTION CPT-4: J0696 04/21/2019 THER/PROPH/DIAG INJ SC/IM CPT-4: 35318 04/21/2019 FLU VACC PRSV FREE INC ANTIG 65 AND OLDER CPT-4: 22086 03/02/2019 FLU VACC PRSV FREE INC ANTIG 65 AND OLDER CPT-4: 25700 03/02/2019 ADMIN INFLUENZA VIRUS VAC CPT-4: G0008 03/02/2019 URINALYSIS NONAUTO W/O SCOPE CPT-4: 84552 02/16/2019 Removal impacted cerumen using irrigation/lavage, unilateral CPT-4: 51403 12/14/2018 UA W/MICR CPT-4: 98715 10/05/2018 ROUTINE VENIPUNCTURE CPT-4: 32854 09/26/2018 RML COMPLETE CBC W/AUTO DIFF WBC CPT-4: 90459 019 CEFTRIAXONE SODIUM INJECTION CPT-4: J0696 09/22/2018 THER/PROPH/DIAG INJ SC/IM CPT-4: 94828 09/22/2018 INFLUENZA ASSAY W/OPTIC CPT-4: 01573 09/22/2018 URINALYSIS NONAUTO W/O SCOPE CPT-4: 51254 09/20/2018 CEFTRIAXONE SODIUM INJECTION CPT-4: J0696 09/20/2018 THER/PROPH/DIAG INJ SC/IM CPT-4: 84828 09/20/2018 RML URINE CULTURE/ COLONY COUNT CPT-4: 88795 09/21/19 19 RML URINE CULTURE/ COLONY COUNT CPT-4: 78749 09/15/19 19 URINALYSIS NONAUTO W/O SCOPE CPT-4: 17229 09/05/2018 RML URINE CULTURE/ COLONY COUNT CPT-4: 51794 09/06/19 19 URINALYSIS NONAUTO W/O SCOPE CPT-4: 91347 04/20/2018 RML URINE CULTURE/ COLONY COUNT CPT-4: 59526 04/20/20 18 CERUM REMOVAL CPT-4: 16972 03/18/2018 FLU VACC PRSV FREE INC ANTIG 65 AND OLDER CPT-4: 12867 03/03/2018 ADMIN INFLUENZA VIRUS VAC CPT-4: G0008 03/03/2018 PRESCRIP TRANSMIT VIA ERX SY CPT-4: G8553 05/25/2017 FLU VACC PRSV FREE INC ANTIG 65 AND OLDER CPT-4: 49540 03/08/2017 ADMIN INFLUENZA VIRUS VAC CPT-4: G0008 03/08/2017 PRESCRIP TRANSMIT VIA ERX SY CPT-4: G8553 01/18/2017 PRESCRIP TRANSMIT VIA ERX SY CPT-4: G8553 11/18/2016 RML URINE CULTURE/ COLONY COUNT CPT-4: 16401 10/27/19 17 URINALYSIS NONAUTO W/O SCOPE CPT-4: 10096 10/26/2016 PRESCRIP TRANSMIT VIA ERX SY CPT-4: G8553 10/08/2016 PRESCRIP TRANSMIT VIA ERX SY CPT-4: G8553 10/05/2016 PRESCRIP TRANSMIT VIA ERX SY CPT-4: G8553 06/23/2016 PRESCRIP TRANSMIT VIA ERX SY CPT-4: G8553 06/03/2016 INFLUENZA ASSAY W/OPTIC CPT-4: 46854 05/26/2016 FLU VACC PRSV FREE INC ANTIG 65 AND OLDER CPT-4: 32269 03/19/2016 ADMIN INFLUENZA VIRUS VAC CPT-4: G0008 03/19/2016 PNEUMOCOCCAL VACC 13 CARLIE IM CPT-4: 03362 01/13/2016 ADMIN PNEUMOCOCCAL VACCINE CPT-4: G0009 01/13/2016 PRESCRIP TRANSMIT VIA ERX SY CPT-4: G8553 01/13/2016 URINALYSIS NONAUTO W/O SCOPE CPT-4: 10991 11/27/2015 RML URINE CULTURE/ COLONY COUNT CPT-4: 59094 11/27/19 16 PRESCRIP TRANSMIT VIA ERX SY CPT-4: G8553 10/17/2015 PRESCRIP TRANSMIT VIA ERX SY CPT-4: G8553 09/03/2015 PRESCRIP TRANSMIT VIA ERX SY CPT-4: G8553 08/01/2015 CUR TOBACCO NON-USER CPT-4: G8457 06/27/2015 PRESCRIP TRANSMIT VIA ERX SY CPT-4: G8553 06/27/2015 Vital Signs Date Vital 10/01/2022 Blood Pressure 1: 128/78 Code: 8480-6 Heart Rate 1: 71 bpm Respiratory Rate: 20 bpm SpO2: 98% Temperature: 36.6 (C) / 97.9 (F) We ight: 141 lbs Code: 62393-1 08/25/2022 Blood Pressure 1: 124/78 Code: 8480-6 Heart Rate 1: 75 bpm Respiratory Rate: 20 bpm SpO2: 98% Temperature: 36.4 (C) / 97.5 (F) We ight: 134 lbs Code: 87183-5 08/11/2022 Blood Pressure 1: 136/74 Code: 8480-6 Heart Rate 1: 69 bpm Respiratory Rate: 18 bpm SpO2: 97% Temperature: 36.7 (C) / 98.0 (F) We ight: 134 lbs Code: 35473-6 07/28/2022 Blood Pressure 1: 126/74 Code: 8480-6 Heart Rate 1: 74 bpm Respiratory Rate: 20 bpm SpO2: 97% Temperature: 36.4 (C) / 97.5 (F) We ight: 135 lbs Code: 59671-1 07/14/2022 Blood Pressure 1: 130/76 Code: 8480-6 Heart Rate 1: 51 bpm SpO2: 100% Temperature: 36.3 (C) / 97.3 (F) Weight: 130 lbs Code : 78654-2 06/23/2022 Blood Pressure 1: 140/80 Code: 8480-6 Heart Rate 1: 58 bpm Respiratory Rate: 20 bpm SpO2: 98% Temperature: 36.3 (C) / 97.3 (F) We ight: 135 lbs Code: 38374-9 05/25/2022 Blood Pressure 1: 161/82 Code: 8480-6 BMI: 24.3 Code: 42196-9 Heart Rate 1: 72 bpm Height: 5'3" Code: 8302-2 SpO2: 97% Temperature: 3 6.3 (C) / 97.3 (F) Weight: 137 lbs Code: 68006-6 03/19/2022 Blood Pressure 1: 140/82 Code: 8480-6 BMI: 23.2 Code: 89242-7 Heart Rate 1: 56 bpm Height: 5'3" Code: 8302-2 SpO2: 92% Temperature: 3 6.8 (C) / 98.2 (F) Weight: 131 lbs Code: 55931-7 02/16/2022 Blood Pressure 1: 154/82 Code: 8480-6 BMI: 23.6 Code: 33882-9 Heart Rate 1: 64 bpm Height: 5'3" Code: 8302-2 Respiratory Rate: 20 bpm SpO2: 96% Temperature: 36.8 (C) / 98.3 (F) Weight: 133 lbs Code: 83531-6 2022 Blood Pressure 1: 140/74 Code: 8480-6 BMI: 22.5 Code: 29084-4 Heart Rate 1: 54 bpm Height: 5'3" Code: 8302-2 Respiratory Rate: 18 bpm SpO2: 96% Temperature: 36.8 (C) / 98.2 (F) Weight: 127 lbs Code: 63449-4 01/27/2022 Blood Pressure 1: 144/80 Code: 8480-6 Heart Rate 1: 84 bpm Respiratory Rate: 22 bpm SpO2: 96% Temperature: 36.7 (C) / 98.0 (F) We ight: 134 lbs Code: 59125-8 10/28/2021 Blood Pressure 1: 152/82 Code: 8480-6 BMI: 22.8 Code: 16512-7 Heart Rate 1: 68 bpm Height: 5'4" Code: 8302-2 Respiratory Rate: 20 bpm SpO2: 98% Temperature: 36.8 (C) / 98.2 (F) Weight: 133 lbs Code: 10363-4 09/23/2021 Blood Pressure 1: 154/78 Code: 8480-6 Heart Rate 1: 66 bpm Respiratory Rate: 18 bpm SpO2: 97% Temperature: 36.2 (C) / 97.1 (F) We ight: 130 lbs Code: 23646-7 08/21/2021 Blood Pressure 1: 166/78 Code: 8480-6 Heart Rate 1: 76 bpm Respiratory Rate: 20 bpm SpO2: 98% Temperature: 36.5 (C) / 97.7 (F) We ight: 134 lbs Code: 70225-3 07/30/2021 Blood Pressure 1: 146/68 Code: 8480-6 Heart Rate 1: 76 bpm Respiratory Rate: 20 bpm SpO2: 98% Temperature: 36.7 (C) / 98.1 (F) We ight: 135 lbs Code: 97945-6 06/19/2021 Blood Pressure 1: 96/50 Code: 8480-6 Heart Rate 1: 72 bpm Respiratory Rate: 20 bpm SpO2: 97% Temperature: 36.8 (C) / 98.3 (F) Weight: 132 lbs Code: 39995-8 05/08/2021 Blood Pressure 1: 132/74 Code: 8480-6 Heart Rate 1: 72 bpm Respiratory Rate: 20 bpm SpO2: 99% Temperature: 36.8 (C) / 98.2 (F) We ight: 132 lbs Code: 01102-5 04/28/2021 Blood Pressure 1: 132/62 Code: 8480-6 Heart Rate 1: 88 bpm Respiratory Rate: 20 bpm SpO2: 98% Temperature: 36.6 (C) / 97.9 (F) We ight: 141 lbs Code: 04274-4 03/19/2021 Blood Pressure 1: 140/67 Code: 8480-6 Heart Rate 1: 71 bpm Respiratory Rate: 15 bpm SpO2: 99% Temperature: 36.3 (C) / 97.3 (F) We ight: 142 lbs Code: 27707-5 02/06/2021 Blood Pressure 1: 152/74 Code: 8480-6 Heart Rate 1: 80 bpm Respiratory Rate: 20 bpm SpO2: 96% Temperature: 36.7 (C) / 98.0 (F) We ight: 138 lbs Code: 01441-9 12/20/2020 Blood Pressure 1: 112/63 Code: 8480-6 Heart Rate 1: 80 bpm Respiratory Rate: 16 bpm SpO2: 99% Temperature: 36.4 (C) / 97.6 (F) We ight: 136 lbs Code: 61574-8 12/11/2020 Blood Pressure 1: 123/64 Code: 8480-6 BMI: 23.5 Code: 39102-6 Heart Rate 1: 68 bpm Height: 5'4" Code: 8302-2 Respiratory Rate: 15 bpm SpO2: 98% Temperature: 36.2 (C) / 97.2 (F) Weight: 137 lbs Code: 97266-7 11/11/2020 Blood Pressure 1: 154/82 Code: 8480-6 Heart Rate 1: 76 bpm SpO2: 99% Temperature: 36.9 (C) / 98.5 (F) Weight: 136 lbs Code: 76657-4 09/05/2020 Blood Pressure 1: 150/66 Code: 8480-6 Heart Rate 1: 80 bpm Respiratory Rate: 20 bpm SpO2: 99% Temperature: 37.0 (C) / 98.6 (F) We ight: 132 lbs Code: 48945-4 07/29/2020 Blood Pressure 1: 152/72 Code: 8480-6 Heart Rate 1: 84 bpm Respiratory Rate: 20 bpm SpO2: 97% Temperature: 36.8 (C) / 98.2 (F) We ight: 133 lbs Code: 86576-5 06/24/2020 Blood Pressure 1: 112/68 Code: 8480-6 Heart Rate 1: 72 bpm Respiratory Rate: 20 bpm SpO2: 98% Temperature: 36.8 (C) / 98.2 (F) We ight: 130 lbs Code: 44156-7 06/21/2020 Blood Pressure 1: 129/78 Code: 8480-6 He art Rate 1: 81 bpm 02/29/2020 Blood Pressure 1: 136/70 Code: 8480-6 Heart Rate 1: 76 bpm Respiratory Rate: 20 bpm SpO2: 98% Temperature: 36.4 (C) / 97.5 (F) We ight: 130 lbs Code: 23663-3 02/22/2020 Blood Pressure 1: 142/67 Code: 8480-6 Heart Rate 1: 64 bpm Respiratory Rate: 16 bpm SpO2: 98% Temperature: 36.5 (C) / 97.7 (F) We ight: 128 lbs Code: 67311-0 02/13/2020 Blood Pressure 1: 124/80 Code: 8480-6 Heart Rate 1: 61 bpm Respiratory Rate: 15 bpm SpO2: 97% Temperature: 36.2 (C) / 97.1 (F) We ight: Code: 37110-5 2020 Blood Pressure 1: 124/60 Code: 8480-6 Heart Rate 1: 92 bpm Respiratory Rate: 20 bpm SpO2: 97% Temperature: 36.4 (C) / 97.5 (F) We ight: 129 lbs Code: 39768-7 01/22/2020 Blood Pressure 1: 134/54 Code: 8480-6 Heart Rate 1: 72 bpm Respiratory Rate: 20 bpm SpO2: 97% Temperature: 37.1 (C) / 98.7 (F) We ight: 128 lbs Code: 22285-5 12/26/2019 Blood Pressure 1: 124/74 Code: 8480-6 Heart Rate 1: 64 bpm Respiratory Rate: 20 bpm SpO2: 98% Temperature: 37.0 (C) / 98.6 (F) We ight: 126 lbs Code: 17954-7 11/27/2019 Blood Pressure 1: 134/73 Code: 8480-6 Heart Rate 1: 116 bpm Respiratory Rate: 17 bpm SpO2: 97% Temperature: 36.7 (C) / 98.0 (F) We ight: 134 lbs Code: 28539-0 11/09/2019 Blood Pressure 1: 126/68 Code: 8480-6 Heart Rate 1: 92 bpm Respiratory Rate: 20 bpm SpO2: 97% Temperature: 37.2 (C) / 98.9 (F) We ight: 135 lbs Code: 33812-4 10/10/2019 Blood Pressure 1: 117/65 Code: 8480-6 Heart Rate 1: 66 bpm Respiratory Rate: 16 bpm SpO2: 99% Temperature: 36.7 (C) / 98.0 (F) We ight: 130 lbs Code: 73839-4 07/13/2019 Blood Pressure 1: 144/70 Code: 8480-6 BMI: 23.0 Code: 58659-5 Heart Rate 1: 92 bpm Height: 5'4" Code: 8302-2 Respiratory Rate: 20 bpm SpO2: 98% Temperature: 36.8 (C) / 98.2 (F) Weight: 133 lbs Code: 53454-4 05/18/2019 Blood Pressure 1: 122/60 Code: 8480-6 Heart Rate 1: 92 bpm Respiratory Rate: 20 bpm SpO2: 97% Temperature: 37.0 (C) / 98.6 (F) 05/17/2019 Blood Pressure 1: 122/74 Code: 8480-6 Heart Rate 1: 84 bpm Respiratory Rate: 20 bpm SpO2: 98% Temperature: 37.2 (C) / 99.0 (F) We ight: 130 lbs Code: 54731-1 04/24/2019 Blood Pressure 1: 124/64 Code: 8480-6 Heart Rate 1: 93 bpm SpO2: 99% Temperature: 36.8 (C) / 98.3 (F) Weight: 134 lbs Code: 68614-9 04/10/2019 Blood Pressure 1: 128/68 Code: 8480-6 Heart Rate 1: 73 bpm SpO2: 99% Temperature: 37.2 (C) / 98.9 (F) Weight: 134 lbs Code: 82361-9 02/16/2019 Blood Pressure 1: 128/64 Code: 8480-6 Heart Rate 1: 72 bpm Respiratory Rate: 20 bpm SpO2: 97% Temperature: 36.8 (C) / 98.2 (F) We ight: 129 lbs Code: 31226-0 12/20/2018 Blood Pressure 1: 152/70 Code: 8480-6 Heart Rate 1: 87 bpm Respiratory Rate: 20 bpm SpO2: 98% Temperature: 36.9 (C) / 98.5 (F) We ight: 127 lbs Code: 09034-8 12/14/2018 Blood Pressure 1: 122/68 Code: 8480-6 Heart Rate 1: 80 bpm Respiratory Rate: 18 bpm SpO2: 96% Temperature: 36.8 (C) / 98.2 (F) 12/12/2018 Blood Pressure 1: 140/68 Code: 8480-6 Heart Rate 1: 75 bpm Respiratory Rate: 18 bpm SpO2: 97% Temperature: 36.2 (C) / 97.1 (F) We ight: 127 lbs Code: 87976-2 10/19/2018 Blood Pressure 1: 126/64 Code: 8480-6 Heart Rate 1: 88 bpm Respiratory Rate: 20 bpm SpO2: 96% Temperature: 37.1 (C) / 98.8 (F) We ight: 123 lbs Code: 18540-8 10/13/2018 Blood Pressure 1: 132/62 Code: 8480-6 He art Rate 1: 86 bpm 10/05/2018 Blood Pressure 1: 114/58 Code: 8480-6 Heart Rate 1: 72 bpm SpO2: 98% Temperature: 36.9 (C) / 98.5 (F) Weight: 120 lbs Code: 81676-7 09/28/2018 Blood Pressure 1: 126/64 Code: 8480-6 Heart Rate 1: 76 bpm Respiratory Rate: 20 bpm SpO2: 97% Temperature: 37.2 (C) / 98.9 (F) 09/26/2018 Blood Pressure 1: 132/66 Code: 8480-6 Heart Rate 1: 79 bpm Respiratory Rate: 20 bpm SpO2: 97% Temperature: 37.1 (C) / 98.7 (F) We ight: 119 lbs Code: 04723-9 09/23/2018 Blood Pressure 1: 112/64 Code: 8480-6 Heart Rate 1: 85 bpm Respiratory Rate: 20 bpm SpO2: 95% Temperature: 36.9 (C) / 98.5 (F) We ight: 119 lbs 8 oz Code: 29465-1 09/22/2018 Blood Pressure 1: 116/58 Code: 8480-6 Heart Rate 1: 88 bpm Respiratory Rate: 20 bpm SpO2: 96% Temperature: 37.9 (C) / 100. 2 (F) 09/20/2018 Blood Pressure 1: 136/70 Code: 8480-6 Heart Rate 1: 109 bpm Respiratory Rate: 20 bpm SpO2: 98% Temperature: 37.0 (C) / 98.6 (F) We ight: 122 lbs Code: 17003-9 09/15/2018 Blood Pressure 1: 134/62 Code: 8480-6 Heart Rate 1: 68 bpm Respiratory Rate: 20 bpm SpO2: 97% Temperature: 36.8 (C) / 98.2 (F) We ight: 124 lbs Code: 28347-1 09/08/2018 Blood Pressure 1: 132/62 Code: 8480-6 Heart Rate 1: 83 bpm Respiratory Rate: 18 bpm SpO2: 94% Temperature: 36.9 (C) / 98.4 (F) We ight: 123 lbs Code: 05809-7 09/05/2018 Blood Pressure 1: 142/68 Code: 8480-6 Heart Rate 1: 70 bpm Respiratory Rate: 18 bpm SpO2: 98% Temperature: 37.0 (C) / 98.6 (F) We ight: 123 lbs Code: 15818-5 03/18/2018 Blood Pressure 1: 132/62 Code: 8480-6 Heart Rate 1: 71 bpm Respiratory Rate: 18 bpm SpO2: 95% Temperature: 36.7 (C) / 98.1 (F) We ight: 126 lbs Code: 58189-2 03/03/2018 Blood Pressure 1: 148/60 Code: 8480-6 BMI: 22.5 Code: 47787-7 Heart Rate 1: 72 bpm Height: 5'4" Code: 8302-2 Respiratory Rate: 20 bpm SpO2: 96% Temperature: 36.9 (C) / 98.4 (F) Weight: 130 lbs Code: 68930-2 02/16/2018 Blood Pressure 1: 154/70 Code: 8480-6 BMI: 21.8 Code: 65828-8 Heart Rate 1: 72 bpm Height: 5'4" Code: 8302-2 Respiratory Rate: 20 bpm SpO2: 97% Temperature: 36.9 (C) / 98.5 (F) Weight: 126 lbs Code: 35462-7 01/26/2018 Blood Pressure 1: 126/78 Code: 8480-6 BMI: 21.8 Code: 67362-3 Heart Rate 1: 80 bpm Height: 5'4" Code: 8302-2 Respiratory Rate: 20 bpm SpO2: 97% Temperature: 36.6 (C) / 97.8 (F) Weight: 126 lbs Code: 50377-4 11/30/2017 Blood Pressure 1: 168/78 Code: 8480-6 BMI: 22.1 Code: 52180-4 Heart Rate 1: 64 bpm Height: 5'4" Code: 8302-2 Respiratory Rate: 20 bpm SpO2: 96% Temperature: 37.0 (C) / 98.6 (F) Weight: 128 lbs Code: 11382-5 10/20/2017 Blood Pressure 1: 146/70 Code: 8480-6 BMI: 22.1 Code: 73890-2 Heart Rate 1: 72 bpm Height: 5'4" Code: 8302-2 Respiratory Rate: 20 bpm SpO2: 97% Temperature: 36.7 (C) / 98.1 (F) Weight: 128 lbs Code: 97548-5 08/30/2017 Blood Pressure 1: 134/68 Code: 8480-6 BMI: 22.5 Code: 84584-7 Heart Rate 1: 72 bpm Height: 5'4" Code: 8302-2 Respiratory Rate: 20 bpm Temperatu re: 36.9 (C) / 98.4 (F) Weight: 130 lbs Code: 93088-9 05/25/2017 Blood Pressure 1: 144/60 Code: 8480-6 BMI: 22.3 Code: 54840-7 Heart Rate 1: 64 bpm Height: 5'4" Code: 8302-2 Respiratory Rate: 20 bpm SpO2: 95% Temperature: 36.8 (C) / 98.2 (F) Weight: 129 lbs Code: 81798-5 03/22/2017 Blood Pressure 1: 124/70 Code: 8480-6 BMI: 21.4 Code: 16022-6 Heart Rate 1: 64 bpm Height: 5'4" Code: 8302-2 Respiratory Rate: 20 bpm Temperatu re: 36.9 (C) / 98.4 (F) Weight: 124 lbs Code: 96916-0 03/08/2017 Blood Pressure 1: 142/78 Code: 8480-6 He art Rate 1: 64 bpm 01/18/2017 Blood Pressure 1: 136/64 Code: 8480-6 BMI: 21.9 Code: 46992-1 Heart Rate 1: 68 bpm Height: 5'4" Code: 8302-2 Respiratory Rate: 20 bpm SpO2: 96% Temperature: 36.8 (C) / 98.2 (F) Weight: 127 lbs Code: 22997-0 01/11/2017 Blood Pressure 1: 142/60 Code: 8480-6 Heart Rate 1: 60 bpm SpO2: 96% 01/04/2017 Blood Pressure 1: 148/70 Code: 8480-6 He art Rate 1: 68 bpm 12/28/2016 Blood Pressure 1: 132/64 Code: 8480-6 BMI: 21.4 Code: 20359-5 Heart Rate 1: 68 bpm Height: 5'4" Code: 8302-2 SpO2: 98% Weight: 124 lb s Code: 05060-8 12/24/2016 Blood Pressure 1: 138/62 Code: 8480-6 He art Rate 1: 74 bpm 12/16/2016 Blood Pressure 1: 124/64 Code: 8480-6 BMI: 21.4 Code: 31746-9 Heart Rate 1: 66 bpm Height: 5'4" Code: 8302-2 Respiratory Rate: 20 bpm SpO2: 97% Temperature: 36.8 (C) / 98.2 (F) Weight: 124 lbs Code: 37918-7 11/18/2016 Blood Pressure 1: 156/64 Code: 8480-6 BMI: 22.3 Code: 46232-1 Heart Rate 1: 64 bpm Height: 5'4" Code: 8302-2 Respiratory Rate: 20 bpm SpO2: 98% Temperature: 36.6 (C) / 97.8 (F) Weight: 129 lbs Code: 77937-2 11/04/2016 Blood Pressure 1: 112/48 Code: 8480-6 BMI: 21.6 Code: 42429-0 Heart Rate 1: 70 bpm Height: 5'4" Code: 8302-2 Respiratory Rate: 22 bpm SpO2: 98% Temperature: 36.4 (C) / 97.6 (F) Weight: 125 lbs Code: 48270-0 10/27/2016 Blood Pressure 1: 118/54 Code: 8480-6 BMI: 21.8 Code: 27805-5 Heart Rate 1: 64 bpm Height: 5'4" Code: 8302-2 Respiratory Rate: 20 bpm SpO2: 97% Temperature: 36.9 (C) / 98.4 (F) Weight: 126 lbs Code: 93015-5 10/13/2016 Blood Pressure 1: 138/82 Code: 8480-6 Heart Rate 1: 66 bpm Height: Code: 8302-2 Respiratory Rate: 20 bpm SpO2: 97% Temperature: 36 .6 (C) / 97.9 (F) Weight: Code: 22101-7 10/08/2016 Blood Pressure 1: 124/56 Code: 8480-6 BMI: 22.8 Code: 33797-8 Heart Rate 1: 76 bpm Height: 5'4" Code: 8302-2 Respiratory Rate: 20 bpm SpO2: 96% Temperature: 36.8 (C) / 98.3 (F) Weight: 132 lbs Code: 12642-8 10/05/2016 Blood Pressure 1: 126/58 Code: 8480-6 BMI: 22.6 Code: 76517-4 Heart Rate 1: 60 bpm Height: 5'4" Code: 8302-2 Respiratory Rate: 20 bpm Temperatu re: 36.7 (C) / 98.1 (F) Weight: 131 lbs Code: 46535-2 08/25/2016 Blood Pressure 1: 130/64 Code: 8480-6 Heart Rate 1: 60 bpm Respiratory Rate: 20 bpm SpO2: 96% Temperature: 37.0 (C) / 98.6 (F) We ight: 136 lbs Code: 03244-5 07/28/2016 Blood Pressure 1: 104/78 Code: 8480-6 BMI: 23.5 Code: 28412-1 Heart Rate 1: 82 bpm Height: 5'4" Code: 8302-2 Respiratory Rate: 24 bpm SpO2: 98% Temperature: 36.8 (C) / 98.2 (F) Weight: 136 lbs Code: 88367-6 06/25/2016 Blood Pressure 1: 152/66 Code: 8480-6 He art Rate 1: 60 bpm 06/23/2016 Blood Pressure 1: 198/102 Code: 8480-6 Heart Rat e 1: 62 bpm Respiratory Rate: 20 bpm SpO2: 95% Temperature: 36.6 (C) / 97.9 (F) We ight: 137 lbs Code: 94619-6 06/03/2016 Blood Pressure 1: 154/86 Code: 8480-6 BMI: 23.4 Code: 17673-8 Heart Rate 1: 56 bpm Height: 5'6" Code: 8302-2 Respiratory Rate: 20 bpm SpO2: 96% Temperature: 36.7 (C) / 98.1 (F) Weight: 143 lbs Code: 27781-0 05/26/2016 Blood Pressure 1: 124/68 Code: 8480-6 BMI: 23.6 Code: 39061-1 Heart Rate 1: 76 bpm Height: 5'6" Code: 8302-2 Respiratory Rate: 20 bpm SpO2: 96% Temperature: 36.2 (C) / 97.2 (F) Weight: 144 lbs Code: 12370-1 05/20/2016 Blood Pressure 1: 156/58 Code: 8480-6 BMI: 24.5 Code: 76220-1 Heart Rate 1: 64 bpm Height: 5'4" Code: 8302-2 Respiratory Rate: 20 bpm Temperatu re: 36.9 (C) / 98.4 (F) Weight: 142 lbs Code: 68606-6 03/19/2016 Blood Pressure 1: 144/74 Code: 8480-6 BMI: 25.9 Code: 84492-1 Heart Rate 1: 76 bpm Height: 5'4" Code: 8302-2 Respiratory Rate: 20 bpm Temperatu re: 36.8 (C) / 98.2 (F) Weight: 150 lbs Code: 59724-2 01/13/2016 Blood Pressure 1: 152/72 Code: 8480-6 BMI: 26.8 Code: 17779-4 Heart Rate 1: 64 bpm Height: 5'4" Code: 8302-2 Respiratory Rate: 20 bpm Temperatu re: 36.7 (C) / 98.1 (F) Weight: 155 lbs Code: 05095-9 12/12/2015 Blood Pressure 1: 128/68 Code: 8480-6 BMI: 26.3 Code: 05476-4 Heart Rate 1: 64 bpm Height: 5'4" Code: 8302-2 Respiratory Rate: 20 bpm Temperatu re: 36.8 (C) / 98.3 (F) Weight: 152 lbs Code: 79752-0 12/05/2015 Blood Pressure 1: 174/88 Code: 8480-6 BMI: 26.8 Code: 01029-9 Heart Rate 1: 68 bpm Height: 5'4" Code: 8302-2 Respiratory Rate: 20 bpm Temperatu re: 36.8 (C) / 98.2 (F) Weight: 155 lbs Code: 97357-3 11/27/2015 Blood Pressure 1: 188/82 Code: 8480-6 He art Rate 1: 70 bpm 10/21/2015 Blood Pressure 1: 148/80 Code: 8480-6 BMI: 27.5 Code: 68598-2 Heart Rate 1: 64 bpm Height: 5'4" Code: 8302-2 Respiratory Rate: 20 bpm Temperatu re: 36.7 (C) / 98.1 (F) Weight: 159 lbs Code: 61387-7 10/17/2015 Blood Pressure 1: 140/74 Code: 8480-6 BMI: 27.5 Code: 36980-4 Heart Rate 1: 80 bpm Height: 5'4" Code: 8302-2 Respiratory Rate: 20 bpm Temperatu re: 36.8 (C) / 98.2 (F) Weight: 159 lbs Code: 66240-1 10/07/2015 Blood Pressure 1: 174/80 Code: 8480-6 BMI: 27.5 Code: 70094-5 Heart Rate 1: 82 bpm Height: 5'4" Code: 8302-2 Respiratory Rate: 20 bpm SpO2: 97% Temperature: 36.7 (C) / 98.0 (F) Weight: 159 lbs Code: 31461-2 09/03/2015 Blood Pressure 1: 146/68 Code: 8480-6 BMI: 27.3 Code: 57790-0 Heart Rate 1: 82 bpm Height: 5'4" Code: 8302-2 Respiratory Rate: 20 bpm SpO2: 97% Temperature: 36.6 (C) / 97.9 (F) Weight: 158 lbs Code: 17453-7 08/01/2015 Blood Pressure 1: 144/78 Code: 8480-6 BMI: 26.9 Code: 89003-3 Heart Rate 1: 64 bpm Height: 5'3" Code: 8302-2 Respiratory Rate: 20 bpm Temperatu re: 36.6 (C) / 97.9 (F) Weight: 154 lbs Code: 13011-6 06/27/2015 Blood Pressure 1: 152/76 Code: 8480-6 BMI: 26.7 Code: 81308-4 Heart Rate 1: 80 bpm Height: 5'3" Code: 8302-2 Respiratory Rate: 20 bpm Temperatu re: 36.7 (C) / 98.1 (F) Weight: 153 lbs Code: 21208-2 Functional Status No Functional Status data Reason For Visit Reason For Visit Effective Dates Notes muscle weakness 10/01/2022 since surgery last y ear has not gotten her strenght - stress 10/01/2022 skin lesion 10/01/2022 right side to back o f head -doesnt know how long its been there shoulder pain 10/01/2022 both shoulders and s h[place] blades and neck - has order for PT but has no strength and has other appts insomnia 10/01/2022 high blood pressure 08/25/2022 states she didnt get the results she wanted from dr lopez - list of bp and current list of medications are on counter and verified by patient - dr lopez did not change any from list neck pain 08/25/2022 follow up 08/11/2022 2 week , patient has papers and notes to discuss with doctor. hypothyroid 08/11/2022 high blood pressure 08/11/2022 arrhythmia 08/11/2022 hypothyroid 07/28/2022 high blood pressure 07/28/2022 stopped the amlodipi ne due to leg swelling - stopped this morning- cough 07/14/2022 started wednesday with congestion some sinus pressure runny nose- no fevers or headaches or sore throat- was exposed to a friend who had the flu last covid and flu test negative high blood pressure 06/23/2022 pt states she is hav ing to watch her heart rate and keeps a log of her BPs/ dr emert added amlodipine 2.5 mg tabes on 06/23/22 arrhythmia 06/23/2022 high blood pressure 05/25/2022 arrhythmia 05/25/2022 follow up 03/19/2022 BP, COPD high blood pressure 03/19/2022 shortness of breath 03/19/2022 follow up 02/16/2022 COPD 02/16/2022 dyspnea 02/16/2022 high blood pressure 02/16/2022 shortness of breath 2022 COPD w/exac 2022 nasal discharge 01/27/2022 cough 01/27/2022Wednesday, productive postnasal drip 01/27/2022 follow up 10/28/2021 high blood pressure 10/28/2021 skin cancer 10/28/2021 follow up 09/23/2021 high blood pressure 09/23/2021 Medication Monitoring 09/23/2021 follow up 08/21/2021 arrhythmia 08/21/2021 high blood pressure 08/21/2021 edema 08/21/2021 follow up 07/30/2021 high blood pressure 07/30/2021 arrhythmia 07/30/2021 follow up 06/19/2021 high blood pressure 06/19/2021 Medication Monitoring 06/19/2021 hyperlipidemia 06/19/2021 arrhythmia 06/19/2021 follow up 05/12/2021 repeat UA with C&S edema 05/08/2021 back pain 04/28/2021 shoulder pain 04/28/2021 high blood pressure 04/28/2021 fatigue 03/19/2021 shortness of breath 03/19/2021 edema 02/06/2021 high blood pressure 02/06/2021 skin lesion 12/20/2020 skin lesion 12/11/2020 frequent urination 11/11/2020 skin lesion 09/05/2020 high blood pressure 07/29/2020 follow up 06/24/2020 high blood pressure 06/24/2020 dizziness 06/24/2020 ~generic 06/21/2020 sinus congestion 03/19/2020 sinus pain 03/19/2020 fatigue 03/19/2020 follow up 02/29/2020 high blood pressure 02/29/2020 edema 02/29/2020 arrhythmia 02/29/2020 color change 02/22/2020 cellulitis 02/22/2020 painful urination 02/13/2020 neck pain 02/13/2020 patient has c/o of r ecurrent neck discomfort and stiffness. neck pain 2020 follow up 01/22/2020 high blood pressure 01/22/2020 arrhythmia 01/22/2020 edema 01/22/2020 follow up 12/26/2019 arrhythmia 12/26/2019 edema 12/26/2019 otalgia 12/26/2019 shortness of breath 11/27/2019 painful urination 11/09/2019 pain, limb 11/09/2019 knee pain 10/10/2019 left knee swelling 10/10/2019 spasms/spasticity 08/25/2019 back pain 07/13/2019 spasms/spasticity 07/13/2019 follow up 05/18/2019 pneumonia 05/18/2019 cough 05/18/2019 cough 05/17/2019 chest congestion 05/17/2019 follow up 05/08/2019 repeat urine C&S fro m UTI sore throat 05/08/2019 taste change 05/08/2019 follow up 04/24/2019 taste change 04/24/2019 oral lesion 04/24/2019 blood in urine 04/24/2019 lab draw 04/21/2019 taste change 04/10/2019 injection(s) 03/02/2019 flu shot fatigue 02/16/2019 hypothyroid 02/16/2019 high blood pressure 02/16/2019 blood pressure check 01/24/2019 chills 12/20/2018 hot then cold cough 12/20/2018 otalgia 12/14/2018 follow up 12/12/2018 A-Fib fatigue 12/12/2018 arrhythmia 12/12/2018 follow up 10/19/2018 high blood pressure 10/19/2018 cough 10/19/2018 sinus congestion 10/19/2018 blood pressure check 10/13/2018 follow up 10/05/2018 cough 10/05/2018 sinus congestion 10/05/2018 high blood pressure 10/05/2018 taste change 10/05/2018 nasal discharge 10/05/2018 follow up 09/28/2018 cough 09/28/2018 sinus congestion 09/28/2018 Patient has had two doses of prednisone follow up 09/26/2018 constipation 09/26/2018 took one stool softn er yesterday cough 09/26/2018 nasal discharge 09/26/2018 follow up 09/23/2018 cough 09/23/2018 chest congestion 09/23/2018 dyspnea 09/23/2018 follow up 09/22/2018 arrhythmia 09/22/2018 Patients resting hea rt rate at home has been in 70's fever 09/22/2018 painful urination 09/22/2018 cough 09/22/2018 blood in urine 09/20/2018 painful urination 09/20/2018 sore throat 09/20/2018 ~generic 09/20/2018 increased heart rate . frequent urination 09/20/2018 follow up 09/15/2018 arrhythmia 09/15/2018 fatigue 09/15/2018 hypothyroid 09/15/2018 follow up 09/14/2018 Repeat urine C&S fatigue 09/08/2018 muscle weakness 09/08/2018 painful urination 09/05/2018 frequent urination 09/05/2018 lab draw 04/20/2018 here to give a UA pe r Dr. Poole's request blood pressure check 04/13/2018 tinnitus 03/18/2018 ear keeps popping follow up 03/03/2018 high blood pressure 03/03/2018 hypothyroid 03/03/2018 edema 03/03/2018 skin lesion 02/16/2018 erythema 01/26/2018 fatigue 01/26/2018 follow up 11/30/2017 high blood pressure 11/30/2017 edema 11/30/2017 Medication Monitoring 11/30/2017 Patient having dif ficult time cutting sotalol in 1/2 due to size and shape. fatigue 11/30/2017 skin lesion 11/04/2017 edema 10/20/2017 achilles tendinitis 10/20/2017 follow up 08/30/2017 high blood pressure 08/30/2017 edema 08/30/2017 joint complaint 08/30/2017 follow up 05/25/2017 high blood pressure 05/25/2017 edema 05/25/2017 fatigue 05/25/2017 follow up 03/22/2017 high blood pressure 03/22/2017 hypothyroid 03/22/2017 edema 03/22/2017 injection(s) 03/08/2017 Flu Vaccine blood pressure check 03/08/2017 follow up 01/18/2017 high blood pressure 01/18/2017 edema 01/18/2017 blood pressure check 01/11/2017 blood pressure check 01/04/2017 blood pressure check 12/28/2016 blood pressure check 12/24/2016 back pain 12/16/2016 Patient states "pull ed a muscle" while in the kitchen approximately 1 week ago and spasms started soon after. Patient applying heat and performing low back exercises. fatigue 12/16/2016 low blood pressure 12/16/2016 follow up 11/18/2016 edema 11/18/2016 high blood pressure 11/18/2016 follow up 11/04/2016 1 week low blood pressure 11/04/2016 Medication induced erythema 11/04/2016 Venous Insufficiency hair loss 11/04/2016 follow up 10/27/2016 cellulitis 10/27/2016 low blood pressure 10/27/2016 muscle weakness 10/27/2016 color change 10/26/2016 blood pressure check 10/26/2016 c/o low blood press ure at home follow up 10/13/2016 cellulitis 10/13/2016 Patient currently on Clindamycin and Prednisone follow up 10/08/2016 cellulitis 10/08/2016 high blood pressure 10/05/2016 edema 10/05/2016 hypothyroid 10/05/2016 follow up 08/25/2016 high blood pressure 08/25/2016 edema 08/25/2016 follow up 07/28/2016 fatigue 07/28/2016 cough 07/28/2016 low blood pressure 07/28/2016 shoulder pain 07/28/2016 ~generic 07/28/2016 patient states has h ad very cold extremities sometimes causing paresthesia. Fingers often white in color blood pressure check 06/25/2016 fatigue 06/23/2016 high blood pressure 06/23/2016 near-syncope/dizziness 06/23/2016 cough 06/03/2016 muscle weakness 06/03/2016 high blood pressure 06/03/2016 nasal discharge 05/26/2016 sinus congestion 05/26/2016 fever 05/26/2016 otalgia 05/26/2016 sore throat 05/26/2016 postnasal drip 05/26/2016 cough 05/26/2016 high blood pressure 05/20/2016 Patient wants to dis cuss BP parameters for exercise arrhythmia 05/20/2016 erythema 05/20/2016 edema 05/20/2016 Discuss lifting flui d restriction and upcoming traveling in car insomnia 05/20/2016 dizziness 05/20/2016 lymph node enlargement/mass 05/20/2016 foot pain 03/19/2016 edema 03/19/2016 follow up 01/13/2016 1mo fwup high blood pressure 01/13/2016 arrhythmia 01/13/2016 edema 01/13/2016 follow up 12/12/2015 edema 12/12/2015 high blood pressure 12/12/2015 follow up 12/05/2015 [facility] fwup high blood pressure 12/05/2015 arrhythmia 12/05/2015 dyspnea 12/05/2015 muscle weakness 12/05/2015 dyskinesia or tremor 11/27/2015 blood pressure check 11/27/2015 hyponatremia 11/27/2015 fatigue 11/27/2015 muscle weakness 11/27/2015 high blood pressure 10/21/2015 edema 10/21/2015 dizziness 10/21/2015 follow up 10/17/2015 high blood pressure 10/17/2015 arrhythmia 10/17/2015 dizziness 10/07/2015 hypertension 10/07/2015 cough 09/03/2015 nasal discharge 09/03/2015 nasal allergies 09/03/2015 postnasal drip 09/03/2015 sinus congestion 09/03/2015 follow up 08/01/2015 high blood pressure 08/01/2015 ~generic 06/27/2015 New Patient---establ ishing visit hypertension 06/27/2015 hypothyroid 06/27/2015 diarrhea 06/27/2015 chills 06/27/2015 diaphoresis 06/27/2015 Encounters Encounter Performer Location Location Address Codes Date ([id number]) OFFICE/OUTPATIENT VISIT EST Diagnosis: Insomnia[ICD10: G47.00] Diagnosis: Other malaise and fatigue[ICD10: R53.81] Diagnosis: 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] Cony POOLE DO [facility] [address] [place] [address] CPT- 4: 27106 10/01/2022 ([id number]) OFFICE/OUTPATIENT VISIT EST Diagnosis: Cervicalgia[ICD10: M54.2] Diagnosis: Labile hypertension[ICD10: R09.89] Diagnosis: Paroxysmal atrial fibrillation[ICD10: I48.0] Diagnosis: Hypothyroidism, unspecified[ICD10: E03.9] Cony POOLE [address] [address] CPT- 4: 02182 08/25/2022 ([id number]) OFFICE/OUTPATIENT VISIT EST Diagnosis: Dyspnea on exertion[ICD10: R06.09] Diagnosis: Chronic atrial fibrillation[ICD10: I48.20] Diagnosis: Essential hypertension[ICD10: I10] Diagnosis: COPD (chronic obstructive pulmonary disease)[ICD10: J44.9] Cony POOLE [address] [address] CPT-4: 56571 08/11/2022 ([id number]) OFFICE/OUTPATIENT VISIT EST Diagnosis: Essential (primary) hypertension[ICD10: I10] Diagnosis: Edema[ICD10: R60.9] Diagnosis: Bradycardia[ICD10: R00.1] Diagnosis: Atrial fibrillation[ICD10: I48.91] Cony OCONNELL DEVIN Jeanine POOEL [address] [address] CPT-4: 61133 07/28/2022 ([id number]) OFFICE/OUTPATIENT VISIT EST Diagnosis: URI (upper respiratory infection)[ICD10: J06.9] Diagnosis: Chronic airway obstruction, not elsewhere classified[ICD10: J44.9] Cony POOLE [address] [address] CPT-4: 42627 07/14/2022 ([id number]) OFFICE/OUTPATIENT VISIT EST Diagnosis: Atrial fibrillation[ICD10: I48.91] Diagnosis: Essential (primary) hypertension[ICD10: I10] Diagnosis: Hypothyroidism[ICD10: E03.9] Conydella POOLE DO [employer] [address] [place] [address] CPT-4: 26225 06/23/2022 ([id number]) OFFICE/OUTPATIENT VISIT EST Diagnosis: Essential (primary) hypertension[ICD10: I10] Diagnosis: Chronic atrial fibrillation[ICD10: I48.20] Diagnosis: Chronic airway obstruction, not elsewhere classified[ICD10: J44.9] Diagnosis: Hypothyroidism[ICD10: E03.9] Cony POOLE DO [address] [address] CPT-4: 27646 05/25/2022 ([id number]) OFFICE/OUTPATIENT VISIT EST Diagnosis: COPD (chronic obstructive pulmonary disease)[ICD10: J44.9] Diagnosis: Essential hypertension[ICD10: I10] Diagnosis: Hypothyroidism[ICD10: E03.9] Diagnosis: Allergic rhinitis[ICD10: J30.9] Diagnosis: Unsteady gait[ICD10: R26.81] Cony POOLE DO [address] [address] CPT-4: 79807 03/19/2022 ([id number]) OFFICE/OUTPATIENT VISIT EST Diagnosis: COPD exacerbation[ICD10: J44.1] Diagnosis: COPD (chronic obstructive pulmonary disease)[ICD10: J44.9] Cony POOLE DO [address] [address] CPT-4: 74413 02/16/2022 ([id number]) OFFICE/OUTPATIENT VISIT EST Diagnosis: COPD exacerbation[ICD10: J44.1] Cony POOLE DO [address] [address] CPT-4: 51739 2022 ([id number]) OFFICE/OUTPATIENT VISIT EST Diagnosis: Contact with and (suspected) exposure to other viral communicable diseases[ICD10: Z20.828] Diagnosis: COPD with acute lower respiratory infection[ICD10: J44.0] Keeley Johnson CONY S. ORENDER [address] [address] CPT-4: 97480 01/27/2022 ([id number]) OFFICE/OUTPATIENT VISIT EST Diagnosis: Essential (primary) hypertension[ICD10: I10] Diagnosis: Hypothyroidism, unspecified[ICD10: E03.9] Diagnosis: Chronic obstructive pulmonary disease, unspecified[ICD10: J44.9] Cony STEVENSLINE Jeanine POOLE [address] [address] CPT-4: 08408 10/28/2021 ([id number]) OFFICE/OUTPATIENT VISIT EST Diagnosis: Essential (primary) hypertension[ICD10: I10] Diagnosis: Atrial fibrillation[ICD10: I48.91] Diagnosis: Edema[ICD10: R60.9] Diagnosis: Mixed hyperlipidemia[ICD10: E78.2] Diagnosis: Hypothyroidism[ICD10: E03.9] Diagnosis: Dyspnea[ICD10: R06.00] Diagnosis: Allergic rhinitis, unspecified[ICD10: J30.9] Cony POOLE [address] [address] CPT- 4: 09275 09/23/2021 ([id number]) OFFICE/OUTPATIENT VISIT EST Diagnosis: Essential (primary) hypertension[ICD10: I10] Diagnosis: Edema[ICD10: R60.9] Diagnosis: Stasis dermatitis[ICD10: I87.2] Diagnosis: Dyspnea[ICD10: R06.00] Cony Colbylea CONY AbigailMelina LISA Albarran [address] [address] CPT-4: 90142 08/21/2021 ([id number]) OFFICE/OUTPATIENT VISIT EST Diagnosis: Essential (primary) hypertension[ICD10: I10] Diagnosis: Atrial fibrillation[ICD10: I48.91] Diagnosis: Edema[ICD10: R60.9] Conyjeannette Bowmanbonygloria STEVENSCONY AbigailMelina VIRGILIO [address] [address] CPT-4: 27560 07/30/19 ([id number]) OFFICE/OUTPATIENT VISIT EST Diagnosis: Essential hypertension[ICD10: I10] Diagnosis: 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] Diagnosis: Reactive airway disease[ICD10: J45.909] Diagnosis: Sciatica[ICD10: M54.30] Cony Virgilio CASTRO [address] [address] CPT-4: 18917 06/19/2021 ([id number]) NURSE/OUTPATIENT VISIT EST Diagnosis: Urinary tract infection[ICD10: N39.0] Cony HOWELLMARY MILA POOLE DO [address] [address] CPT-4: 72945 05/12/2021 ([id number]) OFFICE/OUTPATIENT VISIT EST Diagnosis: Edema leg[ICD10: R60.0] Diagnosis: Recurrent UTI[ICD10: N39.0] 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] Cony Bowmanbonygloria HayesMelina VIRGILIO [address] [address] CPT-4: 77620 05/08/2021 ([id number]) OFFICE/OUTPATIENT VISIT EST Diagnosis: Cervical radiculopathy[ICD10: M54.12] Diagnosis: 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] Cony Colbylea CONY HayesMelina VIRGILIO [address] [address] CPT- 4: 89706 04/28/2021 ([id number]) OFFICE/OUTPATIENT VISIT EST Diagnosis: Other fatigue[ICD10: R53.83] Diagnosis: Hypothyroidism[ICD10: E03.9] Diagnosis: Vitamin B12 deficiency anemia, unspecified[ICD10: D51.9] Keeley Johnson CONY HayesMelina VIRGILIO [address] [address] CPT-4: 14884 03/19/2021 ([id number]) NURSE/OUTPATIENT VISIT EST Diagnosis: Encounter for immunization[ICD10: Z23] Cony MOLINA AbigailMelina GRADYER DO [employer] [address] [place] [address] CPT-4: 64341 02/27/2021 ([id number]) OFFICE/OUTPATIENT VISIT EST Diagnosis: Atrial fibrillation[ICD10: I48.91] Diagnosis: Essential (primary) hypertension[ICD10: I10] Diagnosis: Hypothyroidism[ICD10: E03.9] Diagnosis: Lymphadenopathy of right cervical region[ICD10: R59.0] Diagnosis: Osteopenia[ICD10: M85.80] Cony AVERY Jeanine BOWMAN NDEDeion [address] [address] CPT-4: 49236 02/06/2021 ([id number]) OFFICE/OUTPATIENT VISIT EST Diagnosis: Skin lesion of right leg[ICD10: L98.9] Keeley HOWELLQ JESSE GRADYER [employer] [address] [place] [address] CPT-4: 46169 12/20/2020 ([id number]) OFFICE/OUTPATIENT VISIT EST Diagnosis: Nontraumatic blister of skin[ICD10: R23.8] Keeley Florezkingmaria c GRADYER [employer] [address] [place] [address] CPT- 4: 13847 12/11/2020 ([id number]) OFFICE/OUTPATIENT VISIT EST Diagnosis: Nocturia[ICD10: R35.1] Diagnosis: Essential hypertension[ICD10: I10] Cony BELTRAN Jeanine BOWMANNDER DO [address] [address] CPT-4: 35582 11/11/2020 ([id number]) OFFICE/OUTPATIENT VISIT EST Diagnosis: Essential hypertension[ICD10: I10] Diagnosis: Paroxysmal atrial fibrillation[ICD10: I48.0] Diagnosis: Hypothyroidism[ICD10: E03.9] Cony AVERY AbigailMelina COLBYNDER DO [employer] [address] [place] [address] CPT-4: 23984 07/29/2020 ([id number]) OFFICE/OUTPATIENT VISIT EST Diagnosis: Dizziness and giddiness[ICD10: R42] Diagnosis: Essential hypertension[ICD10: I10] Conydella BELTRAN Jeanine POOLE DO [facility] [address] [place] [address] CPT-4: 58109 06/24/2020 ([id number]) OFFICE/OUTPATIENT VISIT EST Diagnosis: Weakness[ICD10: R53.1] Apoorva POOLE DO [address] [address] CPT-4: 65825 06/21/19 ([id number]) OFFICE/OUTPATIENT VISIT EST Diagnosis: URI (upper respiratory infection)[ICD10: J06.9] Apoorva Rueda [facility] [address] [place] [address] CPT-4: 06347 03/19/2020 ([id number]) OFFICE/OUTPATIENT VISIT EST Diagnosis: Essential (primary) hypertension[ICD10: I10] Diagnosis: Atrial fibrillation status post cardioversion[ICD10: I48.91] Diagnosis: Right upper lobe pulmonary nodule[ICD10: R91.1] Cony Bowmanbonygloria STEVENSCONY AbigailMelina COLBYNDER DO [address] [address] CPT- 4: 49588 02/29/2020 ([id number]) OFFICE/OUTPATIENT VISIT EST Diagnosis: Stasis dermatitis[ICD10: I87.2] Apoorva STEVENSLINE AbigailMelina VIRGILIO DO [address] [address] CPT-4: 72638 02/22/2020 ([id number]) NURSE/OUTPATIENT VISIT EST Diagnosis: Urinary tract infection, site not specified[ICD10: N39.0] Cony Bowmanbonygloria STEVENSCONY AbigailMelina COLBYNDGLORIA DO [address] [address] CPT-4: 34503 02/20/2020 ([id number]) OFFICE/OUTPATIENT VISIT EST Diagnosis: Urinary tract infection[ICD10: N39.0] Apoorva HOWELLMARY MILA AbigailMelina MIGUEL AER DO [address] [address] CPT-4: 31900 02/13/2020 ([id number]) OFFICE/OUTPATIENT VISIT EST Diagnosis: Neck pain[ICD10: M54.2] Diagnosis: Muscle spasm[ICD10: M62.838] Cony AVERY AbigailMelina ORENDER DO [address] [address] CPT-4: 03617 2020 ([id number]) OFFICE/OUTPATIENT VISIT EST Diagnosis: Atrial fibrillation[ICD10: I48.91] Diagnosis: Essential hypertension[ICD10: I10] Diagnosis: Right wrist pain[ICD10: M25.531] Cony AVERY AbigailMelina COLBYNDER [address] [address] CPT-4: 95593 01/22/2020 ([id number]) OFFICE/OUTPATIENT VISIT EST Diagnosis: Paroxysmal atrial fibrillation[ICD10: I48.0] Diagnosis: Essential hypertension[ICD10: I10] Cony BELTRAN SMelina ORENDER DO [address] [address] CPT-4: 65104 12/26/2019 ([id number]) OFFICE/OUTPATIENT VISIT EST Diagnosis: Lung nodule[ICD10: R91.1] Diagnosis: CHF (congestive heart failure)[ICD10: I50.9] Diagnosis: Atrial fibrillation[ICD10: I48.91] Apoorva Rueda ANISH BELTRAN S. ORENDER DO [address] [address] CPT-4: 62800 11/27/2019 ([id number]) OFFICE/OUTPATIENT VISIT EST Diagnosis: Urinary tract infection[ICD10: N39.0] Diagnosis: Hypotension[ICD10: I95.9] Cony Solorzano ORE NDER DO [address] [address] CPT-4: 13094 11/09/2019 ([id number]) OFFICE/OUTPATIENT VISIT EST Diagnosis: Left leg swelling[ICD10: M79.89] Cony Solorzano ORENDER DO [address] [address] CPT-4: 16043 10/10/2019 ([id number]) OFFICE/OUTPATIENT VISIT EST Diagnosis: Muscle spasm[ICD10: M62.838] Cony POOLE DO [address] [address] CPT-4: 92167 08/25/2019 ([id number]) OFFICE/OUTPATIENT VISIT EST Diagnosis: Low back pain[ICD10: M54.5] Diagnosis: Sciatica of left side[ICD10: M54.32] Cony GRADYER DO [address] [address] CPT-4: 91930 07/13/2019 ([id number]) OFFICE/OUTPATIENT VISIT EST Diagnosis: Pneumonia due to infectious organism[ICD10: J18.9] Cony POOLE DO [address] [address] CPT- 4: 00808 05/18/2019 ([id number]) OFFICE/OUTPATIENT VISIT EST Diagnosis: Pneumonia due to infectious organism[ICD10: J18.9] Cony POOLE DO [address] [address] CPT- 4: 22034 05/17/2019 ([id number]) NURSE/OUTPATIENT VISIT EST Diagnosis: Urinary tract infection[ICD10: N39.0] Cony POOLE DO [address] [address] CPT-4: 34783 05/08/2019 ([id number]) NURSE/OUTPATIENT VISIT EST Diagnosis: Acute pharyngitis[ICD10: J02.9] Diagnosis: Altered taste[ICD10: R43.2] Cony Solorzano O RENDER DO [address] [address] CPT-4: 39461 05/08/2019 ([id number]) OFFICE/OUTPATIENT VISIT EST Diagnosis: Urinary tract infection, site not specified[ICD10: N39.0] Diagnosis: Stomatitis and mucositis with change of taste[ICD10: K12.1] Cony POOLE DO [address] [address] CPT-4: 70848 04/24/2019 ([id number]) NURSE/OUTPATIENT VISIT EST Diagnosis: Hematuria[ICD10: R31.9] Cony CASTRO DO [address] [address] CPT-4: 50735 04/21/2019 ([id number]) OFFICE/OUTPATIENT VISIT EST Diagnosis: Oral mucositis (ulcerative), unspecified[ICD10: K12.30] Diagnosis: Stomatitis and mucositis with change of taste[ICD10: K12.1] Cony POOLE DO [address] [address] CPT-4: 44212 04/10/2019 ([id number]) NURSE/OUTPATIENT VISIT EST Diagnosis: FLU VACCINE[ICD10: Z23] Cony CASTRO DO [address] [address] CPT-4: 77793 03/02/2019 ([id number]) OFFICE/OUTPATIENT VISIT EST Diagnosis: Essential (primary) hypertension[ICD10: I10] Diagnosis: Other fatigue[ICD10: R53.83] Diagnosis: Hypothyroidism, unspecified[ICD10: E03.9] Diagnosis: Nocturia[ICD10: R35.1] Cony GONZALEZ R DO [address] [address] CPT-4: 70999 02/16/2019 ([id number]) NURSE/OUTPATIENT VISIT EST Diagnosis: Essential (primary) hypertension[ICD10: I10] Cony POOLE DO [address] [address] CPT- 4: 68422 01/24/2019 ([id number]) OFFICE/OUTPATIENT VISIT EST Diagnosis: Acute upper respiratory infection, unspecified[ICD10: J06.9] Apoorva Mohit CONY S. ORENDER DO [address] [address] CPT-4: 75305 12/20/2018 ([id number]) OFFICE/OUTPATIENT VISIT EST Diagnosis: Paroxysmal atrial fibrillation[ICD10: I48.0] Diagnosis: Other fatigue[ICD10: R53.83] Diagnosis: Essential (primary) hypertension[ICD10: I10] Diagnosis: Hypothyroidism, unspecified[ICD10: E03.9] Cony POOLE DO [address] [address] CPT- 4: 93294 12/12/2018 ([id number]) OFFICE/OUTPATIENT VISIT EST Diagnosis: Essential (primary) hypertension[ICD10: I10] Diagnosis: Allergic rhinitis due to pollen[ICD10: J30.1] Cony POOLE DO [address] [address] CPT- 4: 11485 10/19/2018 ([id number]) OFFICE/OUTPATIENT VISIT EST Diagnosis: Allergic rhinitis due to pollen[ICD10: J30.1] Diagnosis: Essential (primary) hypertension[ICD10: I10] Cony POOLE DO [address] [address] CPT- 4: 65469 10/05/2018 ([id number]) OFFICE/OUTPATIENT VISIT EST Diagnosis: Allergic rhinitis due to pollen[ICD10: J30.1] Diagnosis: Other fatigue[ICD10: R53.83] Diagnosis: Hematuria, unspecified[ICD10: R31.9] Cony POOLE DO [address] [address] CPT-4: 10059 09/28/2018 ([id number]) OFFICE/OUTPATIENT VISIT EST Diagnosis: Allergic rhinitis due to pollen[ICD10: J30.1] Diagnosis: Cough[ICD10: R05] Diagnosis: Dermatitis, unspecified[ICD10: L30.9] Diagnosis: Slow transit constipation[ICD10: K59.01] Cony POOLE DO [address] [address] CPT- 4: 54241 09/26/2018 ([id number]) OFFICE/OUTPATIENT VISIT EST Diagnosis: Acute bronchitis, unspecified[ICD10: J20.9] Diagnosis: Other specified respiratory disorders[ICD10: J98.8] Merry POOLE DO [address] [address] CPT- 4: 10023 09/23/2018 ([id number]) OFFICE/OUTPATIENT VISIT EST Diagnosis: Acute bronchitis, unspecified[ICD10: J20.9] Diagnosis: Fever, unspecified[ICD10: R50.9] Cony POOLE DO [address] [address] CPT-4: 51183 09/22/2018 ([id number]) OFFICE/OUTPATIENT VISIT EST Diagnosis: Tachycardia, unspecified[ICD10: R00.0] Diagnosis: Dysuria[ICD10: R30.0] Diagnosis: Personal history of urinary (tract) infections[ICD10: Z87.440] Merry POOLE DO [address] [address] CPT-4: 34707 09/20/2018 ([id number]) OFFICE/OUTPATIENT VISIT EST Diagnosis: Other fatigue[ICD10: R53.83] Diagnosis: Hypothyroidism, unspecified[ICD10: E03.9] Cony POOLE DO [address] [address] CPT- 4: 37628 09/15/2018 ([id number]) NURSE/OUTPATIENT VISIT EST Diagnosis: Urinary tract infection, site not specified[ICD10: N39.0] Cony POOLE DO [address] [address] CPT-4: 49041 09/14/2018 ([id number]) OFFICE/OUTPATIENT VISIT EST Diagnosis: Chronic fatigue, unspecified[ICD10: R53.82] Diagnosis: Essential (primary) hypertension[ICD10: I10] Diagnosis: Hypothyroidism, unspecified[ICD10: E03.9] Diagnosis: Paroxysmal atrial fibrillation[ICD10: I48.0] Cony POOLE DO [address] [address] CPT- 4: 76625 09/08/2018 ([id number]) OFFICE/OUTPATIENT VISIT EST Diagnosis: Dysuria[ICD10: R30.0] Diagnosis: Personal history of urinary (tract) infections[ICD10: Z87.440] Merry POOLE DO [address] [address] CPT-4: 21969 09/05/2018 ([id number]) NURSE/OUTPATIENT VISIT EST Diagnosis: Essential (primary) hypertension[ICD10: I10] Diagnosis: Edema, unspecified[ICD10: R60.9] Cony POOLE DO [address] [address] CPT-4: 51295 04/20/2018 ([id number]) OFFICE/OUTPATIENT VISIT EST Diagnosis: FLU VACCINE[ICD10: Z23] Diagnosis: Hypothyroidism, unspecified[ICD10: E03.9] Diagnosis: Essential (primary) hypertension[ICD10: I10] Diagnosis: Localized edema[ICD10: R60.0] Cony POOLE DO [address] [address] CPT-4: 49800 03/03/2018 ([id number]) OFFICE/OUTPATIENT VISIT EST Diagnosis: Atopic dermatitis, unspecified[ICD10: L20.9] Apoorva POOLE DO [address] [address] CPT- 4: 65994 02/16/2018 ([id number]) OFFICE/OUTPATIENT VISIT EST Diagnosis: Pressure ulcer of right heel, stage 1[ICD10: L89.611] Diagnosis: Other fatigue[ICD10: R53.83] Apoorva POOLE DO [address] [place] [address] CPT-4: 05809 01/26/2018 OFFICE/OUTPATIENT VISIT EST Diagnosis: Hypothyroidism, unspecified[ICD10: E03.9] Diagnosis: Essential (primary) hypertension[ICD10: I10] Diagnosis: Localized edema[ICD10: R60.0] Diagnosis: Other fatigue[ICD10: R53.83] Cony POOLE [address] [address] CPT-4: 04207 11/30/2017 ([id number]) OFFICE/OUTPATIENT VISIT EST Diagnosis: Other seborrheic keratosis[ICD10: L82.1] Cony POOLE [address] [address] CPT- 4: 65439 11/04/2017 ([id number]) OFFICE/OUTPATIENT VISIT EST Diagnosis: Achilles tendinitis, right leg[ICD10: M76.61] Apoorva POOLE [address] [address] CPT- 4: 40952 10/20/2017 ([id number]) OFFICE/OUTPATIENT VISIT EST Diagnosis: Essential (primary) hypertension[ICD10: I10] Diagnosis: Hypothyroidism, unspecified[ICD10: E03.9] Diagnosis: Weakness[ICD10: R53.1] Cony Albarran [address] [address] CPT-4: 60683 08/30/2017 ([id number]) OFFICE/OUTPATIENT VISIT EST Diagnosis: Hypothyroidism, unspecified[ICD10: E03.9] Diagnosis: Essential (primary) hypertension[ICD10: I10] Diagnosis: Paroxysmal atrial fibrillation[ICD10: I48.0] Cony POOLE [address] [address] CPT- 4: 69871 05/25/2017 ([id number]) OFFICE/OUTPATIENT VISIT EST Diagnosis: Essential (primary) hypertension[ICD10: I10] Diagnosis: Hypothyroidism, unspecified[ICD10: E03.9] Cony POOLE DO [employer] [address] [place] [address] CPT- 4: 00524 03/22/2017 ([id number]) OFFICE/OUTPATIENT VISIT EST Diagnosis: FLU VACCINE[ICD10: Z23] Cony CASTRO DO [address] [address] CPT-4: 74010 03/08/2017 ([id number]) OFFICE/OUTPATIENT VISIT EST Diagnosis: Essential (primary) hypertension[ICD10: I10] Diagnosis: Hypothyroidism, unspecified[ICD10: E03.9] Cony POOLE DO [address] [address] CPT- 4: 87300 01/18/2017 ([id number]) OFFICE/OUTPATIENT VISIT EST Diagnosis: Essential (primary) hypertension[ICD10: I10] Diagnosis: Localized edema[ICD10: R60.0] Diagnosis: Hypotension, unspecified[ICD10: I95.9] Cony POOLE DO [address] [address] CPT-4: 62783 12/16/2016 ([id number]) OFFICE/OUTPATIENT VISIT EST Diagnosis: Hypothyroidism, unspecified[ICD10: E03.9] Diagnosis: Essential (primary) hypertension[ICD10: I10] Cony POOLE DO [address] [address] CPT- 4: 08071 11/18/2016 ([id number]) OFFICE/OUTPATIENT VISIT EST Diagnosis: Hypotension due to drugs[ICD10: I95.2] Diagnosis: Lymphangitis[ICD10: I89.1] Diagnosis: Hypothyroidism, unspecified[ICD10: E03.9] Cony POOLE DO [employer] [address] [place] [address] CPT- 4: 55111 11/04/2016 ([id number]) OFFICE/OUTPATIENT VISIT EST Diagnosis: Hypotension due to drugs[ICD10: I95.2] Diagnosis: Other fatigue[ICD10: R53.83] Cony POOLE DO [address] [address] CPT-4: 25826 10/27/2016 ([id number]) OFFICE/OUTPATIENT VISIT EST Diagnosis: Other symptoms and signs involving the genitourinary system[ICD10: R39.89] Cony POOLE DO [address] [address] CPT-4: 17403 10/26/2016 OFFICE/OUTPATIENT VISIT EST Diagnosis: Venous insufficiency (chronic) (peripheral)[ICD10: I87.2] Diagnosis: Lymphangitis[ICD10: I89.1] Diagnosis: Cellulitis of left lower limb[ICD10: L03.116] Cony POOLE DO [address] [address] CPT- 4: 64524 10/13/2016 OFFICE/OUTPATIENT VISIT EST Diagnosis: Cellulitis of left lower limb[ICD10: L03.116] Diagnosis: Lymphangitis[ICD10: I89.1] Cony MOCTEZUMA [address] [address] CPT-4: 57999 10/08/2016 ([id number]) OFFICE/OUTPATIENT VISIT EST Diagnosis: Hypothyroidism, unspecified[ICD10: E03.9] Diagnosis: Essential (primary) hypertension[ICD10: I10] Diagnosis: Other fatigue[ICD10: R53.83] Diagnosis: Cellulitis of left lower limb[ICD10: L03.116] Cony POOLE DO [address] [address] CPT- 4: 26349 10/05/2016 ([id number]) OFFICE/OUTPATIENT VISIT EST Diagnosis: Essential (primary) hypertension[ICD10: I10] Diagnosis: Localized edema[ICD10: R60.0] Diagnosis: Other fatigue[ICD10: R53.83] Cony POOLE [address] [address] CPT-4: 19045 08/25/2016 ([id number]) OFFICE/OUTPATIENT VISIT EST Diagnosis: Essential (primary) hypertension[ICD10: I10] Diagnosis: Hypothyroidism, unspecified[ICD10: E03.9] Diagnosis: Weakness[ICD10: R53.1] Cony Miguel Agloria CONY Jeanine Albarran [address] [address] CPT-4: 94970 07/28/2016 ([id number]) OFFICE/OUTPATIENT VISIT EST Diagnosis: Essential (primary) hypertension[ICD10: I10] Merle POOLE [address] [address] CPT- 4: 83984 06/23/2016 ([id number]) OFFICE/OUTPATIENT VISIT EST Diagnosis: Cough[ICD10: R05] Diagnosis: Essential (primary) hypertension[ICD10: I10] Merle POOLE [address] [address] CPT- 4: 90219 06/03/2016 ([id number]) OFFICE/OUTPATIENT VISIT EST Diagnosis: Acute upper respiratory infection, unspecified[ICD10: J06.9] Diagnosis: Fever, unspecified[ICD10: R50.9] Merle POOLE [address] [address] CPT-4: 71615 05/26/2016 ([id number]) OFFICE/OUTPATIENT VISIT EST Diagnosis: Essential (primary) hypertension[ICD10: I10] Diagnosis: Paroxysmal atrial fibrillation[ICD10: I48.0] Diagnosis: Venous insufficiency (chronic) (peripheral)[ICD10: I87.2] Diagnosis: Primary insomnia[ICD10: F51.01] Diagnosis: Hypothyroidism, unspecified[ICD10: E03.9] Cony Gradygloria CONY Jeanine POOLE [address] [address] CPT- 4: 17943 05/20/2016 ([id number]) OFFICE/OUTPATIENT VISIT EST Diagnosis: Pain in right ankle and joints of right foot[ICD10: M25.571] Diagnosis: Venous insufficiency (chronic) (peripheral)[ICD10: I87.2] Diagnosis: FLU VACCINE[ICD10: Z23] Cony CASTRO [address] [address] CPT-4: 05090 03/19/2016 ([id number]) OFFICE/OUTPATIENT VISIT EST Diagnosis: Essential (primary) hypertension[ICD10: I10] Diagnosis: Localized edema[ICD10: R60.0] Diagnosis: Paroxysmal atrial fibrillation[ICD10: I48.0] Diagnosis: PNEUMOCOCCAL VACCINE[ICD10: Z23] Cony POOLE DO [address] [address] CPT-4: 18760 01/13/2016 ([id number]) OFFICE/OUTPATIENT VISIT EST Diagnosis: Hypo-osmolality and hyponatremia[ICD10: E87.1] Diagnosis: Essential (primary) hypertension[ICD10: I10] Diagnosis: Paroxysmal atrial fibrillation[ICD10: I48.0] Cony POOLE DO [address] [address] CPT- 4: 82156 12/12/2015 ([id number]) OFFICE/OUTPATIENT VISIT EST Diagnosis: Essential (primary) hypertension[ICD10: I10] Diagnosis: Edema, unspecified[ICD10: R60.9] Diagnosis: Hypo-osmolality and hyponatremia[ICD10: E87.1] Cony POOLE DO [address] [address] CPT- 4: 57491 12/05/2015 ([id number]) OFFICE/OUTPATIENT VISIT EST Diagnosis: Hypo-osmolality and hyponatremia[ICD10: E87.1] Diagnosis: Hematuria, unspecified[ICD10: R31.9] Cony POOLE [address] [address] CPT-4: 68047 11/27/2015 ([id number]) OFFICE/OUTPATIENT VISIT EST Diagnosis: Essential (primary) hypertension[ICD10: I10] Diagnosis: Edema, unspecified[ICD10: R60.9] Diagnosis: Dizziness and giddiness[ICD10: R42] Merle HOWELLANNE Solorzano VIRGILIO [employer] [address] [place] [address] CPT-4: 14766 10/21/2015 ([id number]) OFFICE/OUTPATIENT VISIT EST Diagnosis: Essential (primary) hypertension[ICD10: I10] Diagnosis: Localized edema[ICD10: R60.0] Diagnosis: Paroxysmal atrial fibrillation[ICD10: I48.0] Cony Solorzano COLBYBONYER [employer] [address] [place] [address] CPT- 4: 70719 10/17/2015 ([id number]) OFFICE/OUTPATIENT VISIT EST Diagnosis: Essential (primary) hypertension[ICD10: I10] Diagnosis: Tachycardia, unspecified[ICD10: R00.0] Diagnosis: Hypothyroidism, unspecified[ICD10: E03.9] Diagnosis: Palpitations[ICD10: R00.2] Merle Hernandez CONY Solorzano ERIC RHIANNA [employer] [address] [place] [address] CPT-4: 21080 10/07/2015 ([id number]) OFFICE/OUTPATIENT VISIT EST Diagnosis: Acute upper respiratory infection, unspecified[ICD10: J06.9] Merle Hernandez CONY Solorzano COLBYNDER [employer] [address] [place] [address] CPT-4: 25877 09/03/2015 ([id number]) OFFICE/OUTPATIENT VISIT EST Diagnosis: Essential (primary) hypertension[ICD10: I10] Cony Solorzano COLBYNDER [employer] [address] [place] [address] CPT- 4: 79944 08/01/2015 OFFICE/OUTPATIENT VISIT NEW Diagnosis: Essential (primary) hypertension[ICD10: I10] Diagnosis: Hypothyroidism, unspecified[ICD10: E03.9] Diagnosis: Family history of malignant neoplasm of breast[ICD10: Z80.3] Cony Solorzano COLBYNDER [employer] [address] [place] [address] CPT-4: 44100 06/27/2015 Plan of Care Planned Activity Notes Codes Status Date Visit Diagnosis Plan: Stress and adjustment reaction D iscussion: Trial of effexor XR 37.5mg po q HS Fwup 1month ICD-9 : 309.89 ICD-10 : F43.29 10/01/2022 Appointment: Cony Poole WPtel: [address] [place], [place] [phone] ACUTE ILLNESS 10/01/2022 Visit Diagnosis Plan: Hypothyroidism, unspecified Disc ussion: Increase Synthroid to 88mcg M, W, F and continue 75mcg all other days and repeat TSH and Free T4 in 2mos ICD-9 : 244.9 ICD-10 : E03.9 08/25/2022 Visit Diagnosis Plan: Paroxysmal atrial fibrillation D iscussion: Rate controlled ICD-9 : 427.31 ICD-10 : I48.0 08/25/2022 Visit Diagnosis Plan: Cervicalgia Discussion: Proceed with cervical spine x-ray and then will look at PT Fwup after PT complete ICD-9 : 723.1 ICD-10 : M54.2 08/25/2022 Visit Diagnosis Plan: Labile hypertension Discussion: Keep meds same ICD-9 : 401.9 ICD-10 : R09.89 08/25/2022 Appointment: Cony Poole WPtel: [address] [place], [place] [phone] FOLLOW UP 08/25/2022 Care Plan: X-RAY EXAM NECK SPINE 4/5VWS LOINC : 84975-5 Pending 08/25/2022 Visit Diagnosis Plan: Chronic atrial fibrillation Disc ussion: Sees Dr. Lopez at end of month ICD-9 : 427.31 ICD-10 : I48.20 08/11/2022 Visit Diagnosis Plan: Dyspnea on exertion Discussion: Discussed could be a fib episodes ICD-9 : 786.09 ICD-10 : R06.09 08/11/2022 Visit Diagnosis Plan: Essential hypertension Discussio n: Continue hydralazine at current dose and monitor home BP readings ICD-9 : 401.9 ICD-10 : I10 08/11/2022 Visit Diagnosis Plan: COPD (chronic obstructive pulmon frank disease) Discussion: Decrease budesonide to once daily ICD-9 : 496 ICD-10 : J44.9 08/11/2022 Appointment: Cony Poole WPtel: [phone] [phone] FOLLOW UP 08/11/2022 Appointment: Cony Poole WPtel: [phone] [phone] US RESCHEDULED 08/11/2022 Visit Diagnosis Plan: Edema Discussion: Patient stoppe d amlodopine this morning ICD-9 : 782.3 ICD-10 : R60.9 07/28/2022 Visit Diagnosis Plan: Atrial fibrillation Discussion: Following with Dr. Miller Sees Dr. Lopez next month ICD-9 : 427.31 ICD-10 : I48.91 07/28/2022 Visit Diagnosis Plan: Essential (primary) hypertension Discussion: Stop amlodopine Add Hydralazine 10mg po BID Fwup 2 weeks Continue metoprolol and losartan ICD-9 : 401.9 ICD-10 : I10 07/28/2022 Visit Diagnosis Plan: Bradycardia Discussion: Will mon itor pulse with DC of amlodopine ICD-9 : 427.89 ICD-10 : R00.1 07/28/2022 Appointment: Cony Poole WPtel: [phone] [phone] US FOLLOW UP 07/28/2022 Patient Education: hydralazine- [employer] C[employer]on [id number] Completed 07/28/2022 Patient Education: losartan- [employer] Coupon [id number] Completed 07/28/2022 Visit Diagnosis Plan: URI (upper respiratory infection ) Discussion: Influenza A and B and Covid negative Z-pack Continue budesonide and perforomist and add albuterol at least TID Notify if worsening ICD-9 : 465.9 ICD-10 : J06.9 07/14/2022 Appointment: Cony Poole WPtel: [address] [place], [place] [phone] ACUTE ILLNESS 07/14/2022 Visit Diagnosis Plan: Hypothyroidism Discussion: Ferrer reji syntrhoid to 88mcg M-F and 75mcg on Wed and Wednesday and recheck thyroid in 3mos ICD-9 : 244.9 ICD-10 : E03.9 06/23/2022 Visit Diagnosis Plan: Atrial fibrillation Discussion: Has seen Dr. Miller and added low dose amlodopine No ablation indicated at this pointe ICD-9 : 427.31 ICD-10 : I48.91 06/23/2022 Visit Diagnosis Plan: Essential (primary) hypertension Discussion: Add amlodopine should help BP Follow Up: 1 months ICD-9 : 401.9 ICD-10 : I10 06/23/2022 Appointment: Cony Poole WPtel: [address] [place], [place] [address] FOLLOW UP 06/23/2022 Visit Diagnosis Plan: Hypothyroidism Discussion: Updat e labs and fwup in 1month ICD-9 : 244.9 ICD-10 : E03.9 05/25/2022 Visit Diagnosis Plan: Chronic airway obstruction, not elsewhere classified Discussion: Stable on SVNs ICD-9 : 496 ICD-10 : J44.9 05/25/2022 Visit Diagnosis Plan: Chronic atrial fibrillation Disc ussion: Going to see Dr. Miller ICD-9 : 427.31 ICD-10 : I48.20 05/25/2022 Visit Diagnosis Plan: Essential (primary) hypertension Discussion: Increase losartan to 50mg po BID Fwup in June as scheduled ICD-9 : 401.9 ICD-10 : I10 05/25/2022 Appointment: Cony Pooletel: [address] [place], [place] [phone] ACUTE ILLNESS 05/25/2022 Patient Education: losartan- [employer] Coupon [id number] [email or web address] Completed 05/25/2022 Visit Diagnosis Plan: Essential hypertension Discussio n: Stable ICD-9 : 401.9 ICD-10 : I10 03/19/2022 Visit Diagnosis Plan: Unsteady gait Discussion: Start PT ICD-9 : 781.2 ICD-10 : R26.81 03/19/2022 Visit Diagnosis Plan: Allergic rhinitis Discussion: Ad d astepro in place of flonase ICD-9 : 477.9 ICD-10 : J30.9 03/19/2022 Visit Diagnosis Plan: COPD (chronic obstructive pulmon frank disease) Discussion: Stable on budesonide/performomist ICD-9 : 496 ICD-10 : J44.9 03/19/2022 Visit Diagnosis Plan: Hypothyroidism Discussion: Stabl reji ICD-9 : 244.9 ICD-10 : E03.9 03/19/2022 Appointment: Cony Poole WPtel: [phone] US FOLLOW UP 03/19/2022 Visit Diagnosis Plan: COPD exacerbation Discussion: Co ntinue budesonide/performomist and use albuterol prn as rescue Go for COVID booster Flu shot in March Fwup 1month ICD-9 : 491.21 ICD-10 : J44.1 02/16/2022 Appointment: Cony Poole WPtel: [phone] US FOLLOW UP 02/16/2022 Visit Diagnosis Plan: COPD exacerbation Discussion: Co ntinue breztri 2p BID and albuterol prn Will switch to Nebulizer with Budesonide 0.5mg BID and Perforomist 20mcg BID with duoneb q4hrs prn Fwup 2 weeks unless worsening ICD-9 : 491.21 ICD-10 : J44.1 2022 Appointment: Cony Poole WPtel: [phone] US FOLLOW UP 2022 Visit Diagnosis Plan: COPD with acute lower respirator y infection Discussion: Rapid covid negative CXR today Rocephin 1 gm IM Sample of richard given Albuterol inhaler q4 hrs prn Already has fwup appt and states tomorrow is her birthday, so she does not want to come in tomorrow if at all possible- will call and let us know how she is doing tomorrow morning and will review CXR tomorrow and fwup if needed ICD-9 : 496 ICD-10 : J44.0 01/27/2022 Appointment: Keeley Johnson WPtel: [phone] [phone] ACUTE ILLNESS 01/27/2022 Patient Education: Patient Medication Summary Completed 01/27/2022 Referral: Soy Rodriguez WPtel: [facility] [address] [place], [place] [address] 09/30 - for office Completed 10/29/2021 Visit Diagnosis Plan: Essential (primary) hypertension Discussion: Stable ICD-9 : 401.9 ICD-10 : I10 10/28/2021 Visit Diagnosis Plan: Chronic obstructive pulmonary di sease, unspecified Discussion: Stable on Advair ICD-9 : 496 ICD-10 : J44.9 10/28/2021 Visit Diagnosis Plan: Hypothyroidism, unspecified Disc ussion: Labs discussed Continue current dose and repeat labs in 3mos and fwup ICD-9 : 244.9 ICD-10 : E03.9 10/28/2021 Appointment: Cony Poole WPtel: [phone] [phone] FOLLOW UP 10/28/2021 Visit Diagnosis Plan: Edema Discussion: Only using las ix with potassium if weight increases ICD-9 : 782.3 ICD-10 : R60.9 09/23/2021 Visit Diagnosis Plan: Atrial fibrillation Discussion: Going to change eliquis due to insurance coverage per cardiology--likely to xarelto ICD-9 : 427.31 ICD-10 : I48.91 09/23/2021 Visit Diagnosis Plan: Essential (primary) hypertension Discussion: Increase losartan to 50mg po q AM Keep metoprolol ER at 100mg po q HS Monitor home BP and pulse Follow Up: 1 months ICD-9 : 401.9 ICD-10 : I10 09/23/2021 Visit Diagnosis Plan: Hypothyroidism Discussion: Updat e thyroid labs in 1 month ICD-9 : 244.9 ICD-10 : E03.9 09/23/2021 Visit Diagnosis Plan: Mixed hyperlipidemia Discussion: LIpids due in January ICD-9 : 272.2 ICD-10 : E78.2 09/23/2021 Visit Diagnosis Plan: Dyspnea Discussion: Referral to speech therapy for shallow breathing ICD-9 : 786.09 ICD-10 : R06.00 09/23/2021 Appointment: Cony Poole WPtel: [address] [place], [place] [phone] US FOLLOW UP 09/23/2021 Appointment: Cony Poole WPtel: [address] [place], [place] [phone] US CANCELED 09/08/2021 Visit Diagnosis Plan: Essential (primary) hypertension Discussion: Increase metoprolol back to 100mg daily Follow Up: 1 months ICD-9 : 401.9 ICD-10 : I10 08/21/2021 Visit Diagnosis Plan: Dyspnea Discussion: Restart Adva ir ICD-9 : 786.09 ICD-10 : R06.00 08/21/2021 Visit Diagnosis Plan: Edema Discussion: Go back to las ix every other day ICD-9 : 782.3 ICD-10 : R60.9 08/21/2021 Visit Diagnosis Plan: Stasis dermatitis Discussion: Sh ould improve with decreased swelling Can continue to use Gold Gilliam ICD-9 : 454.1 ICD-10 : I87.2 08/21/2021 Appointment: Cony Poole WPtel: [address] [place], [place] [phone] US FOLLOW UP 08/21/2021 Appointment: Keeley Johnson WPtel: [phone] [phone] US CANCELED 08/12/2021 Visit Diagnosis Plan: Essential (primary) hypertension Discussion: Stable ICD-9 : 401.9 ICD-10 : I10 07/30/2021 Visit Diagnosis Plan: Atrial fibrillation Discussion: On cardizem and eliquis and rate controlled and asympotomatic Sees Dr Lopez in 2 weeks ICD-9 : 427.31 ICD-10 : I48.91 07/30/2021 Appointment: Cony Poole WPtel: [address] [place], [place] [phone] US FOLLOW UP 07/30/2021 Appointment: Cony Poole WPtel: [address] [place], [place] [phone] due to weather CANCELED 07/24/2021 Visit Diagnosis Plan: History of right-sided carotid e ndarterectomy Discussion: Healing well ICD-9 : V45.89 ICD-10 : Z98.890 06/19/2021 Visit Diagnosis Plan: Essential hypertension Discussio n: Monitor BP until fwup with cardiology Follow Up: 1 months ICD-9 : 401.9 ICD-10 : I10 06/19/2021 Visit Diagnosis Plan: Sciatica Discussion: Decrease ga bapentin to 100mg po q HS for 1 week then stop ICD-9 : 724.3 ICD-10 : M54.30 06/19/2021 Visit Diagnosis Plan: Reactive airway disease Discussi on: Continue advair ICD-9 : 493.90 ICD-10 : J45.909 06/19/2021 Appointment: Cony Poloe WPtel: [address] [place], [place] [phone] US FOLLOW UP 06/19/2021 Appointment: Cony Poole WPtel: [address] [place], [place] [phone] US seen 05/08/21 at 1 pm by doctor as appt opened up CANCELED 05/14/2021 Appointment: Cony Poole WPtel: [address] [place], [place] [phone] US UA 05/12/2021 Visit Diagnosis Plan: Recurrent UTI Discussion: Will c luisk UA ICD-9 : 599.0 ICD-10 : N39.0 05/08/2021 Visit Diagnosis Plan: Right-sided carotid artery obstr uction Discussion: Surgery is tentatively scheduled on May 26 ICD-9 : 433.10 ICD-10 : I65.21 05/08/2021 Visit Diagnosis Plan: Edema leg Discussion: Wearing co mpression stockings Discussed likely from increased dose of cardizem ICD-9 : 782.3 ICD-10 : R60.0 05/08/2021 Appointment: Cony Poole WPtel: [address] [place] [address] ACUTE ILLNESS 05/08/2021 Visit Diagnosis Plan: Cervical radiculopathy Discussio n: Start PT ICD-9 : 723.4 ICD-10 : M54.12 04/28/2021 Visit Diagnosis Plan: Stress and adjustment reaction D iscussion: Stress Reducers Discussed Discussion: Stress Reducers Discussed meds ICD-9 : 309.89 ICD-10 : F43.29 04/28/2021 Appointment: Cony Poole WPtel: [address] [place], [place] [address] ACUTE ILLNESS 04/28/2021 Appointment: Cony Poole WPtel: [address] [place], [place] [address] RESCHEDULED 03/25/2021 Visit Diagnosis Plan: Other fatigue Discussion: Will r echeck thyroid labs as previously scheduled, B12, and ferritin level per Dr. Brown- discussed could be causing fatigue. Will f/u after labs or sooner for worsening/concerns. ICD-9 : 780.79 ICD-10 : R53.83 03/19/2021 Appointment: Keeley Johnson WPtel: [phone] [phone] ACUTE ILLNESS 03/19/2021 Patient Education: Patient Medication Summary Completed 03/19/2021 Appointment: Cony Poole WPtel: [phone] [phone] US INJECTION 02/27/2021 Visit Diagnosis Plan: Essential (primary) hypertension Discussion: BP up and down ICD-9 : 401.9 ICD-10 : I10 02/06/2021 Visit Diagnosis Plan: Hypothyroidism Discussion: Lab d iscussed Decrease levothyroxine to 75mcg 6 days a week and repeat thyroid lab in 2mos ICD-9 : 244.9 ICD-10 : E03.9 02/06/2021 Visit Diagnosis Plan: Osteopenia Discussion: Check bon e density ICD-9 : 733.90 ICD-10 : M85.80 02/06/2021 Visit Diagnosis Plan: Lymphadenopathy of right cervica l region Discussion: Check US of thyroid and neck ICD-9 : 785.6 ICD-10 : R59.0 02/06/2021 Visit Diagnosis Plan: Atrial fibrillation Discussion: Saw Cardiology last month--no med changes--repeat ICD-9 : 427.31 ICD-10 : I48.91 02/06/2021 Appointment: Cony Poole WPtel: [phone] [phone] ACUTE ILLNESS 02/06/2021 Care Plan: US EXAM OF HEAD AND NECK LOIN C : 55126-2 Pending 02/06/2021 Care Plan: DXA BONE DENSITY AXIAL LOINC : 70162-4 Pending 02/06/2021 Appointment: Keeley Johnson WPtel: [phone] [phone] US CANCELED 12/24/2020 Visit Diagnosis Plan: Skin lesion of right leg Discuss ion: Appears to be healing- is smaller, no s/s of infection. Will f/u if does not improve or worsens. ICD-9 : 709.9 ICD-10 : L98.9 12/20/2020 Appointment: Keeley Johnson [facility]Ptel[facility] [phone] [id number] [facility] 12/20/2020 Patient Education: Patient Medication Summary Completed 12/20/2020 Visit Diagnosis Plan: Nontraumatic blister of skin Dis cussion: Small isolated lesion, no s/s of infection. Bandaid and neosporin applied. 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 F/U for worsening/concerns or if more lesions appear. ICD-9 : 709.8 ICD-10 : R23.8 12/11/2020 Appointment: Keeley Johnson WPtel: [address] ACUTE ILLNESS 12/11/2020 Patient Education: Patient Medication Summary Completed 12/11/2020 Visit Diagnosis Plan: Essential hypertension Discussio n: Dr. Lopez increased Cardizem dose ICD-9 : 401.9 ICD-10 : I10 11/11/2020 Visit Diagnosis Plan: Nocturia Discussion: Will check urine first and if normal will do trial of overactive bladder medication--did discuss worsening dry mouth/constipation as side effect ICD-9 : 788.43 ICD-10 : R35.1 11/11/2020 Appointment: Cony Poole WPtel: [address] [place] [address] ACUTE ILLNESS 11/11/2020 Appointment: Cony Poole WPtel: [address] [place], [place] [address] US CANCELED 11/11/2020 Visit Diagnosis Plan: Inflamed seborrheic keratosis Di scussion: Cryotherapy as above ICD-9 : 702.11 ICD-10 : L82.0 09/05/2020 Appointment: Cony Poole WPtel: [address] [place] [address] ACUTE ILLNESS 09/05/2020 Visit Diagnosis Plan: Essential hypertension Discussio n: Stable ICD-9 : 401.9 ICD-10 : I10 07/29/2020 Visit Diagnosis Plan: Paroxysmal atrial fibrillation D iscussion: On eliquis ICD-9 : 427.31 ICD-10 : I48.0 07/29/2020 Visit Diagnosis Plan: Hypothyroidism Discussion: Lab d iscussed Will recheck lab in 2mos ICD-9 : 244.9 ICD-10 : E03.9 07/29/2020 Appointment: Cony Poole WPtel: [phone] [phone] FOLLOW UP 07/29/2020 Visit Diagnosis Plan: Dizziness and giddiness Discussi on: Continue increased dose of Cardizem ER 120mg po BID and monitor BP/pulse Has LINQ device in place Discussed Dee EKG Follow Up: 1 months ICD-9 : 780.4 ICD-10 : R42 06/24/2020 Appointment: Cony Poole WPtel: [phone] [phone] [facility] Follow Up 06/24/2020 Visit Diagnosis Plan: Weakness Discussion: telephone v isit completed. patient unable to pinpoint her symptoms. discussed with patient that she needs labs and urine. i informed patient that i can send order to [facility] but results will be unknown until wednesday due to the weekend. patient would rather know today what's going on. i informed patient that due to the timing of her appointment, i am unsure of what is going on since her vitals are stable and no definitive symptoms. patient reports heart rate is regular and not in afib. instructed patient to go to urgent care then so they can draw labs and do urine sample. to ED with new or worsening symptoms. ICD-9 : 780.79 ICD-10 : R53.1 06/21/2020 Appointment: Apoorva Rueda [address] [employer] [id number] TELEMEDICINE 06/21/2020 Visit Diagnosis Plan: URI (upper respiratory infection ) Discussion: phone visit was completed today. covid order to be sent to for patient to have done tomorrow am. instructed to push fluids and call office with any new or worsening symptoms. to ED with worsening issues. remain quarantine until results are completed. ICD-9 : 465.9 ICD-10 : J06.9 03/19/2020 Appointment: Apoorva Rueda [address] [employer] [address] TELEMEDICINE 03/19/2020 Visit Diagnosis Plan: Atrial fibrillation status post cardioversion Discussion: Going to get LINQ device ICD-9 : 427.31 ICD-10 : I48.91 02/29/2020 Visit Diagnosis Plan: Right upper lobe pulmonary nodul e Discussion: CT of chest ICD-9 : 793.11 ICD-10 : R91.1 02/29/2020 Visit Diagnosis Plan: Essential (primary) hypertension Discussion: Stable Had flu shot ICD-9 : 401.9 ICD-10 : I10 02/29/2020 Appointment: Cony Poole WPtel: [address] [place], [place] [phone] FOLLOW UP 02/29/2020 Care Plan: CT THORAX W/O DYE LOINC : 473 66-0 Pending 02/29/2020 Care Plan: MAMMOGRAM SCREENING LOINC : 2 6347-5 Pending 02/29/2020 Visit Diagnosis Plan: Stasis dermatitis Discussion: in structed to start using triamcinolone bid for a week and keep legs elevated when seated and compression hose. has routine follow up next week so will re-assess at that time. call office prior with new or worsening symptoms. ICD-9 : 454.1 ICD-10 : I87.2 02/22/2020 Appointment: Apoorva Rueda [address] [place] [address] ACUTE ILLNESS 02/22/2020 Appointment: Cony Poole WPtel: [address] [place], [place] [phone] 02/20/2020 Visit Diagnosis Plan: Urinary tract infection Discussi on: based on patient's age and length of illness, clinical s/s, will give 1 gm rocephin in office. urine sent for culture. push fluids and call office with new or worsening symptoms. ICD-9 : 599.0 ICD-10 : N39.0 02/13/2020 Appointment: Apoorva Rueda [address] [place] [address] ACUTE ILLNESS 02/13/2020 Visit Diagnosis Plan: Neck pain Discussion: Daily stre tches Moist heat Topical muscle rub Can use baclofen 1/2 tab during day and full tab at night ICD-9 : 723.1 ICD-10 : M54.2 2020 Appointment: Cony Poole WPtel: [address] [place], [place] [phone] ACUTE ILLNESS 2020 Visit Diagnosis Plan: Atrial fibrillation Discussion: Wearing holter monitor for 30 days ICD-9 : 427.31 ICD-10 : I48.91 01/22/2020 Visit Diagnosis Plan: Essential hypertension Discussio n: Stable ICD-9 : 401.9 ICD-10 : I10 01/22/2020 Visit Diagnosis Plan: Right wrist pain Discussion: JEREMY E and will need x-ray if ongoing or worsening ICD-9 : 719.43 ICD-10 : M25.531 01/22/2020 Appointment: Cony Poole WPtel: [address] [place], [place] [phone] US FOLLOW UP 01/22/2020 Visit Diagnosis Plan: Paroxysmal atrial fibrillation D iscussion: Stable with new meds Follow Up: 1 months ICD-9 : 427.31 ICD-10 : I48.0 12/26/2019 Visit Diagnosis Plan: Essential hypertension Discussio n: Stable ICD-9 : 401.9 ICD-10 : I10 12/26/2019 Appointment: Cony Poole WPtel: [address] [place], [place] [phone] Hospital Follow Up 12/26/2019 Appointment: Cony Poole WPtel: [address] [place], [place] [phone] US CANCELED 12/25/2019 Visit Diagnosis Plan: Lung nodule Discussion: incident al finding seen on xray. since this is a new finding, will order ct of chest. notified patient. ICD-9 : 793.11 ICD-10 : R91.1 11/27/2019 Visit Diagnosis Plan: Atrial fibrillation Discussion: ekg ordered due to arrythmia heard on exam. instructed patient to go to ED with any chest pain or worsening dyspnea. ICD-9 : 427.31 ICD-10 : I48.91 11/27/2019 Visit Diagnosis Plan: CHF (congestive heart failure) D iscussion: patient feels slight improvement today and feels the lasix just kicked in because she has urinated a lot today and didn't much over the weekend. continue with lasix and potassium daily. instructed patient to call dr. chow for follow up with him. will send recent labs to dr. chow. instructed to call us with new or worsening symptoms. ICD-9 : 428.0 ICD-10 : I50.9 11/27/2019 Appointment: Apoorva Rueda [address] [place], [place] [address] FOLLOW UP 11/27/2019 Visit Diagnosis Plan: Hypotension Discussion: Decrease amlodopine to once daily Monitor home BP/pulse and report readings in 2 weeks ICD-9 : 458.9 ICD-10 : I95.9 11/09/2019 Visit Diagnosis Plan: Urinary tract infection Discussi on: Cefdinir Culture urine ICD-9 : 599.0 ICD-10 : N39.0 11/09/2019 Appointment: Apoorva Rueda [address] [phone] CANCELED 11/09/2019 Appointment: Cony Poole WPtel: [address] [address] ACUTE ILLNESS 11/09/2019 Patient Education: cefdinir- [employer] Coupon [id number] https://www.WoraPay.Bookioo/samplemd/resources/getResource/61/eq1wee41-542v-7995-g6 Completed 11/09/2019 Visit Diagnosis Plan: Left leg swelling Discussion: St at LLE doppler now ICD-9 : 729.81 ICD-10 : M79.89 10/10/2019 Appointment: Cony Poole WPtel: [address] [phone] ACUTE ILLNESS 10/10/2019 Visit Diagnosis Plan: Muscle spasm Discussion: Can use tylenol 325mg po TID Topical muscle rub Baclofen 10mg 1/2-1 po q HS for spasm but hold temazepam while taking Notify if worsening or persists Stretches/Moist Heat ICD-9 : 728.85 ICD-10 : M62.838 08/25/2019 Appointment: Cony Poole WPtel: [address] [place], [place] [phone] TELEMEDICINE 08/25/2019 Patient Education: baclofen- [employer] Coupon [id number] https://www.Cerephex/sampleVoddler/resources/getResource/61/muqk6824-58yi-2wn1-7k Completed 08/25/2019 Visit Diagnosis Plan: Low back pain Discussion: Check L/S spine x-rays ICD-9 : 724.2 ICD-10 : M54.5 07/13/2019 Visit Diagnosis Plan: Sciatica of left side Discussion : Will likely start with PT pending x-ray results ICD-9 : 724.3 ICD-10 : M54.32 07/13/2019 Appointment: Cony Poole WPtel: [address] [place], [place] [address] ACUTE ILLNESS 07/13/2019 Care Plan: X-RAY EXAM L-S SPINE 2/3 VWS LOINC : 83265-5 Pending 07/13/2019 Visit Diagnosis Plan: Pneumonia due to infectious orga nism Discussion: Repeat rocephin 1gm IM today Start cefdinir tomorrow To ER this weekend if worsens ICD-9 : 486 ICD-10 : J18.9 05/18/2019 Appointment: Cony Poole WPtel: [address] [place], [place] [address] FOLLOW UP 05/18/2019 Patient Education: cefdinir- [employer] Coupon [id number] https://www.Cerephex/WoraPay/resources/getResource/61/2i32j85t-77s3-81q2-u4 Completed 05/18/2019 Patient Education: temazepam- [employer] Coupon [id number] https://www.Cerephex/WoraPay/resources/getResource/61/ki9s92io-7541-8ly1-8w Completed 05/18/2019 Patient Education: Synthroid- [employer] Coupon [id number] https://www.Cerephex/samplemd/resources/getResource/61/79443him-fr58-5z52-45 Completed 05/18/2019 Patient Education: Cytomel- [employer] Coupon [id number] https://www.Cerephex/WoraPay/resources/getResource/61/ba17nb08-168q-048p-z1 Completed 05/18/2019 Visit Diagnosis Plan: Pneumonia due to infectious orga nism Discussion: Rocnidia 1gm IM now Recheck tomorrow ICD-9 : 486 ICD-10 : J18.9 05/17/2019 Appointment: Cony Poole WPtel: [address] [place], [place] [address] FOLLOW UP 05/17/2019 Appointment: Cony Poole WPtel: [address] [place] [address] 05/10/19 1630---see note in chart related to throat culture (km) CANCELED 05/10/2019 Appointment: Cony Poole WPtel: [address] [place], [place] [address] [facility] 05/08/2019 Appointment: Cony Poole WPtel: [address] [place] [address] NURSE SERVICES 05/08/2019 Visit Diagnosis Plan: Stomatitis and mucositis with ch bry of taste Discussion: 2 more weeks of nystatin then sees Dr. Brown on May 22 for biopsy lesion ICD-9 : 528.00 ICD-10 : K12.1 04/24/2019 Visit Diagnosis Plan: Urinary tract infection, site no t specified Discussion: Finish abx then reculture urine ICD-9 : 599.0 ICD-10 : N39.0 04/24/2019 Appointment: Cony Poole WPtel: [address] [place], [place] [phone] FOLLOW UP 04/24/2019 Patient Education: nystatin- [employer] Coupon [id number] https://www.Cerephex/sampleVoddler/resources/getResource/61/z252743f-p994-4w0e-p0 Completed 04/24/2019 Appointment: Cony Poole WPtel: [address] [place] [address] US UA 04/21/2019 Visit Diagnosis Plan: Stomatitis and mucositis with ch bry of taste Discussion: Diflucan and nystatin susp Discussed oral biopsy ICD-9 : 528.00 ICD-10 : K12.1 04/10/2019 Appointment: Cony Poole WPtel: [address] [place], [place] [phone] ACUTE ILLNESS 04/10/2019 Patient Education: nystatin- [employer] Coupon [id number] https://www.Cerephex/WoraPay/resources/getResource/61/5ltlnn80-11v5-0958-cj Completed 04/10/2019 Appointment: Cony Poole WPtel: [address] [place] [address] US INJECTION 03/02/2019 Patient Education: INFLUENZA VACCINE CDC Completed 03/02/2019 Visit Diagnosis Plan: Other fatigue Discussion: Check TSH, Free T4, CBC, CMP ICD-9 : 780.79 ICD-10 : R53.83 02/16/2019 Visit Diagnosis Plan: Essential (primary) hypertension Discussion: Split amlodopine to 5mg po BID Continue HCTZ in AM Just finished and turned in 30 day holter monitor ICD-9 : 401.9 ICD-10 : I10 02/16/2019 Visit Diagnosis Plan: Hypothyroidism, unspecified Disc ussion: Update TSH, Free T4 ICD-9 : 244.9 ICD-10 : E03.9 02/16/2019 Visit Diagnosis Plan: Nocturia Discussion: Check UA ICD-9 : 788.43 ICD-10 : R35.1 02/16/2019 Appointment: Cony Poole WPtel: [address] [phone] ACUTE ILLNESS 02/16/2019 Appointment: Cony Poole WPtel: [address] [place], [place] [phone] NO SHOW - FORGIVEN 02/15/2019 Appointment: Cony Poole WPtel: [address] [place], [place] [phone] [place] BP CHECK 01/24/2019 Visit Diagnosis Plan: Acute upper respiratory infectio n, unspecified Discussion: cefdinir bid for 7 days. instructed to continue with allergy medications daily. call or rtc with new or worsening symptoms. ICD-9 : 465.9 ICD-10 : J06.9 12/20/2018 Appointment: Apoorva Rueda [address] [place] [address] ACUTE ILLNESS 12/20/2018 Visit Diagnosis Plan: Impacted cerumen, right ear Disc ussion: ear canal cleaned out with lavage. patient tolerated well and had immediate relief of hearing loss. no issues voiced. ICD-9 : 380.4 ICD-10 : H61.21 12/14/2018 Appointment: Apoorva Rueda [address] [place] [address] ACUTE ILLNESS 12/14/2018 Visit Diagnosis Plan: Essential (primary) hypertension Discussion: Stable ICD-9 : 401.9 ICD-10 : I10 12/12/2018 Visit Diagnosis Plan: Hypothyroidism, unspecified Disc ussion: Check TSH, Free T4 ICD-9 : 244.9 ICD-10 : E03.9 12/12/2018 Visit Diagnosis Plan: Paroxysmal atrial fibrillation D iscussion: Once again discussed 30 day event monitor/ILP or low dose blood thinner Has not been able to tolerate antiarrhythmics ICD-9 : 427.31 ICD-10 : I48.0 12/12/2018 Appointment: Cony Poole WPtel: [facility]0 [phone] FOLLOW UP 12/12/2018 Visit Diagnosis Plan: Essential (primary) hypertension Discussion: Stable Patient sees cardiology next week--has been off sotalol since 09/15/18 and BP and pulse have been stable ICD-9 : 401.9 ICD-10 : I10 10/19/2018 Appointment: Cony Pooletel: [address] [place], [place] [phone] FOLLOW UP 10/19/2018 Appointment: Cony Poole WPtel: [address] [place] [address] BP CHECK 10/13/2018 Visit Diagnosis Plan: Allergic rhinitis due to pollen Discussion: Continue zyrtec ICD-9 : 477.9 ICD-10 : J30.1 10/05/2018 Visit Diagnosis Plan: Essential (primary) hypertension Discussion: Stable Recheck 2 weeks ICD-9 : 401.9 ICD-10 : I10 10/05/2018 Appointment: Cony Poole WPtel: [address] [place] [address] FOLLOW UP 10/05/2018 Patient Education: Synthroid- [employer]imize[employer] Coupon [id number] https://www.Cerephex/WoraPay/resources/getResource/61/lfk59146-x726-3822-04 Completed 10/05/2018 Visit Diagnosis Plan: Allergic rhinitis due to pollen Discussion: Continue zyrtec Finish prednisone ICD-9 : 477.9 ICD-10 : J30.1 09/28/2018 Visit Diagnosis Plan: Hematuria, unspecified Discussio n: Recheck UA with microscopy in 1 week then fwup ICD-9 : 599.70 ICD-10 : R31.9 09/28/2018 Appointment: Cony Pooletel: [address] [place], [place] [phone] [place] FOLLOW UP 09/28/2018 Visit Diagnosis Plan: Allergic rhinitis due to pollen Discussion: Check CBC now May do low dose prednisone pending lab Recheck 2 days ICD-9 : 477.9 ICD-10 : J30.1 09/26/2018 Visit Diagnosis Plan: Slow transit constipation Discus jaelyn: Glycerin Suppository prn Miralax samples given today to use one daily ICD-9 : 564.01 ICD-10 : K59.01 09/26/2018 Appointment: Cony Poole WPtel: [facility]4 [phone] FOLLOW UP 09/26/2018 Visit Diagnosis Plan: Other specified respiratory diso rders Discussion: CXR shows hyperinflation consistent with COPD. ICD-9 : 519.8 ICD-10 : J98.8 09/23/2018 Visit Diagnosis Plan: Acute bronchitis, unspecified Di scussion: Cefdinir 300 mg BID x 7 days. Start today. FU early next week. Go to ED or Urgent care with worsening symptoms over the weekend. Patient states understanding. ICD-9 : 466.0 ICD-10 : J20.9 09/23/2018 Appointment: Merry Diaz [facility] [address] FOLLOW UP 09/23/2018 Patient Education: cefdinir- [employer]imizeRX Coupon [id number] https://www.Cerephex/samplemd/resources/getResource/61/4ag8t0br-5965-6p56-j3 Completed 09/23/2018 Visit Diagnosis Plan: Acute bronchitis, unspecified Di scussion: Rocephin today Go for CXR Flu negative Recheck tomorrow ICD-9 : 466.0 ICD-10 : J20.9 09/22/2018 Appointment: Cony Poole WPtel: [facility]8 [phone] US FOLLOW UP 09/22/2018 Visit Diagnosis Plan: Tachycardia, unspecified Discuss ion: Patient in regular rhythm. Advise to keep follow-up with doctor this . Tachycardia may be exacerbated due to UTI. ICD-9 : 785.0 ICD-10 : R00.0 09/20/2018 Visit Diagnosis Plan: Dysuria Discussion: Reocephin 1 gram administered in clinic based off UA. Tolerated injection well. Will culture urine. Patient to start Macrobid tmrw. Push fluids and rest. ICD-9 : 788.1 ICD-10 : R30.0 09/20/2018 Appointment: Merry Diaz [address] [place], [place] [phone] ACUTE ILLNESS 09/20/2018 Visit Diagnosis Plan: Other fatigue Discussion: Hold s otalol Add B12 500mcg daily as B12 in low normal range Fwup 1 week ICD-9 : 780.79 ICD-10 : R53.83 09/15/2018 Visit Diagnosis Plan: Hypothyroidism, unspecified Disc ussion: Decrease Synthroid to 50mcg daily ICD-9 : 244.9 ICD-10 : E03.9 09/15/2018 Appointment: Cony Poole WPtel: [address] [place], [place] [address] FOLLOW UP 09/15/2018 Appointment: Cony Poole WPtel: [address] [place] [address] UA 09/14/2018 Visit Diagnosis Plan: Chronic fatigue, unspecified Dis cussion: I think her sotalol may be a big factor so will start with updated lab and if it is normal then will hold sotalol and fwup in 1 week ICD-9 : 780.79 ICD-10 : R53.82 09/08/2018 Appointment: Cony Poole WPtel: [address] [place] [address] ACUTE ILLNESS 09/08/2018 Visit Diagnosis Plan: Dysuria Discussion: UA- positive for leuks, hematuria, nitrates. Will start patient on Macrobid and culture urine. Will call patient with results of culture. RTC with worsening symptoms, including fever, increased pain, abdominal pain. Patient states understanding. ICD-9 : 788.1 ICD-10 : R30.0 09/05/2018 Appointment: Merry Diaz [address] [place], [place] [phone] ACUTE ILLNESS 09/05/2018 Care Plan: RML ASSAY THYROID STIM HORMONE Pending 05/26/2018 Care Plan: RML ASSAY OF FREE THYROXINE Pe nding 05/26/2018 Appointment: Cony Poole WPtel: [address] [place], [place] [phone] UA 04/20/2018 Appointment: Cony Poole WPtel: [address] [phone] BP CHECK 04/13/2018 Visit Diagnosis Plan: Impacted cerumen, right ear Disc ussion: cerumen removed with irrigation and lavage. patient tolerated well and had immediate relief. ICD-9 : 380.4 ICD-10 : H61.21 03/18/2018 Appointment: Apoorva Rueda [address] [place] [address] ACUTE ILLNESS 03/18/2018 Patient Education: Patient Medication Summary Completed 03/18/2018 Visit Diagnosis Plan: Localized edema Discussion: Cont inue Compression Stockings and watch Na intake Follow Up: 3 months ICD-9 : 782.3 ICD-10 : R60.0 03/03/2018 Visit Diagnosis Plan: Hypothyroidism, unspecified Disc ussion: Lab discussed Stable ICD-9 : 244.9 ICD-10 : E03.9 03/03/2018 Visit Diagnosis Plan: Essential (primary) hypertension Discussion: Stable ICD-9 : 401.9 ICD-10 : I10 03/03/2018 Appointment: Cony Poole WPtel: [facility]8 [phone] FOLLOW UP 03/03/2018 Patient Education: Patient Medication Summary Completed 03/03/2018 Visit Diagnosis Plan: Atopic dermatitis, unspecified D iscussion: instructed to apply triamcinolone bid for 2 weeks, until follow up. follow with your normal lotion and cover with compression hose. if worsening or no improvement, call clinic. ICD-9 : 691.8 ICD-10 : L20.9 02/16/2018 Appointment: Apoorva Rueda [address] [place] [address] ACUTE ILLNESS 02/16/2018 Patient Education: Patient Medication Summary Completed 02/16/2018 Visit Diagnosis Plan: Other fatigue Discussion: order for mag lab for updated thryoid labs. instructed patient to go today. ICD-9 : 780.79 ICD-10 : R53.83 01/26/2018 Visit Diagnosis Plan: Pressure ulcer of right heel, st age 1 Discussion: instructed patient to purchase heel covers to prevent worsening sore to ankle. educated patient to remove shoes when at home or not outside to prevent worsening issues as well. call or rtc with concerns. ICD-9 : 707.07 ICD-10 : L89.611 01/26/2018 Appointment: Apoorva Rueda [address] [place] [address] ACUTE ILLNESS 01/26/2018 Patient Education: Patient Medication Summary Completed 01/26/2018 Visit Diagnosis Plan: Other fatigue Discussion: Trial of Whole Root Ginseng 1000mg daily ICD-9 : 780.79 ICD-10 : R53.83 11/30/2017 Visit Diagnosis Plan: Localized edema Discussion: Disc ussed low dose lasix and potassium trial but patient has not tolerated diuretics in the past ICD-9 : 782.3 ICD-10 : R60.0 11/30/2017 Visit Diagnosis Plan: Hypothyroidism, unspecified Disc ussion: Lab discussed Decrease Synthroid to 75mcg 6 days a week and recheck lab in 3mos ICD-9 : 244.9 ICD-10 : E03.9 11/30/2017 Visit Diagnosis Plan: Essential (primary) hypertension Discussion: Stable ICD-9 : 401.9 ICD-10 : I10 11/30/2017 Appointment: Cony Poole WPtel: [address] [place] [phone] FOLLOW UP 11/30/2017 Patient Education: Patient Medication Summary Completed 11/30/2017 Visit Diagnosis Plan: Other seborrheic keratosis Discu ssion: Monitor ICD-9 : 702.19 ICD-10 : L82.1 11/04/2017 Appointment: Cony Poole WPtel: [facility]8 [phone] US Consult 11/04/2017 Patient Education: Patient Medication Summary Completed 11/04/2017 Visit Diagnosis Plan: Achilles tendinitis, right leg D iscussion: educated patient on RICE and the importance of performing all these activities. 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 instructed patient ok to wear over jayna hose and to wear during day and take off at night. duexis samples given to patient with instructions to cut in half and take bid for 3 days. elevate leg as much as poss ible and if no improvement by wednesday, call office and may require xray. otherwise, discussed with patient that tendon became inflamed from trauma and time will heal it. ICD-9 : 726.71 ICD-10 : M76.61 10/20/2017 Appointment: Apoorva Rueda [address] [facility] ACUTE ILLNESS 10/20/2017 Patient Education: Patient Medication Summary Completed 10/20/2017 Visit Diagnosis Plan: Essential (primary) hypertension Discussion: Stable ICD-9 : 401.9 ICD-10 : I10 08/30/2017 Visit Diagnosis Plan: Weakness Discussion: Check Cervi gerri spine x-ray due to primarily being in upper arms ICD-9 : 780.79 ICD-10 : R53.1 08/30/2017 Appointment: Cony Poole WPtel: [address] [phone] FOLLOW UP 08/30/2017 Patient Education: Patient Medication Summary Completed 08/30/2017 Care Plan: X-RAY EXAM NECK SPINE 4/5VWS LOINC : 03194-9 Pending 08/30/2017 Patient Education: Patient Medication Summary Completed 08/13/2017 Care Plan: DXA BONE DENSITY AXIAL LOINC : 38532-4 Pending 08/13/2017 Patient Education: Patient Medication Summary Completed 07/01/2017 Care Plan: RML COMPREHEN METABOLIC PANEL LOINC : 28612-9 Pending 07/01/2017 Care Plan: RML ASSAY THYROID STIM HORMONE Pending 07/01/2017 Care Plan: RML ASSAY OF FREE THYROXINE Pe nding 07/01/2017 Care Plan: RML LIPID PANEL LOINC : 63314 -1 Pending 07/01/2017 Care Plan: CBC Pending 07/01/2017 Care Plan: RML RBC SED RATE AUTOMATED Pen ding 07/01/2017 Visit Diagnosis Plan: Essential (primary) hypertension Discussion: Stable with current meds Sees Cardiology in June ICD-9 : 401.9 ICD-10 : I10 05/25/2017 Visit Diagnosis Plan: Hypothyroidism, unspecified Disc ussion: Continue current dose and recheck in 3mos Follow Up: 3 months ICD-9 : 244.9 ICD-10 : E03.9 05/25/2017 Appointment: Cony Poole WPtel: [address] [place], [place] [phone] US FOLLOW UP 05/25/2017 Patient Education: Patient Medication Summary Completed 05/25/2017 Patient Education: Patient Medication Summary Completed 03/30/2017 Care Plan: MAMMOGRAM SCREENING LOINC : 2 6347-5 Pending 03/30/2017 Visit Diagnosis Plan: Hypothyroidism, unspecified Disc ussion: Continue current thyroid dose and hold MV as has biotin in it and will check levels in 2mos ICD-9 : 244.9 ICD-10 : E03.9 03/22/2017 Visit Diagnosis Plan: Essential (primary) hypertension Discussion: Continue current meds Monitor BP ICD-9 : 401.9 ICD-10 : I10 03/22/2017 Appointment: Cony Poole WPtel: [address] [place], [place] [phone] [place] FOLLOW UP 03/22/2017 Patient Education: Patient Medication Summary Completed 03/22/2017 Patient Education: Patient Medication Summary Completed 03/17/2017 Care Plan: RML ASSAY THYROID STIM HORMONE Pending 03/17/2017 Care Plan: RML ASSAY OF FREE THYROXINE Pe nding 03/17/2017 Care Plan: METABOLIC PANEL TOTAL CA LOIN C : 06308-7 Pending 03/17/2017 Appointment: Cony Poole WPtel: [address] [place], [place] [phone] [place] INJECTION 03/08/2017 Patient Education: Patient Medication Summary Completed 03/08/2017 Visit Diagnosis Plan: Hypothyroidism, unspecified Disc ussion: Increase synthroid to 75mcg daily and recheck 2mos Follow Up: 2 months ICD-9 : 244.9 ICD-10 : E03.9 01/18/2017 Visit Diagnosis Plan: Essential (primary) hypertension Discussion: Stable with current meds ICD-9 : 401.9 ICD-10 : I10 01/18/2017 Appointment: Cony Poole WPtel: [address] [place], [place] [phone] 8/10lm~sl FOLLOW UP 01/18/2017 Patient Education: Patient Medication Summary Completed 01/18/2017 Appointment: Cony Poole WPtel: [address] [place], [place] [phone] BP CHECK 01/11/2017 Patient Education: Patient Medication Summary Completed 01/11/2017 Patient Education: Patient Medication Summary Completed 01/11/2017 Care Plan: RML ASSAY THYROID STIM HORMONE Pending 01/11/2017 Care Plan: RML ASSAY OF FREE THYROXINE Pe nding 01/11/2017 Appointment: Cony Poole WPtel: [address] [place], [place] [address] BP CHECK 01/04/2017 Patient Education: Patient Medication Summary Completed 01/04/2017 Appointment: Cony Poole WPtel: [address] [place], [place] [address] BP CHECK 12/28/2016 Patient Education: Patient Medication Summary Completed 12/28/2016 Appointment: Cony Poole WPtel: [address] [place] [address] BP CHECK 12/24/2016 Patient Education: Patient Medication Summary Completed 12/24/2016 Visit Diagnosis Plan: Hypotension, unspecified Discuss ion: Tashi fuentes Decrease HCTZ to 12.5mg q AM BP check in 1 week ICD-9 : 458.9 ICD-10 : I95.9 12/16/2016 Visit Diagnosis Plan: Localized edema Discussion: Decr ease HCTZ to 12.5mg q AM ICD-9 : 782.3 ICD-10 : R60.0 12/16/2016 Appointment: Cony Poole WPtel: [address] [place], [place] [phone] ACUTE ILLNESS 12/16/2016 Patient Education: Patient Medication Summary Completed 12/16/2016 Visit Diagnosis Plan: Essential (primary) hypertension Discussion: Continue current meds and monitor BP Follow Up: 2 months ICD-9 : 401.9 ICD-10 : I10 11/18/2016 Visit Diagnosis Plan: Hypothyroidism, unspecified Disc ussion: Increased synthroid to 75mct M, W, F and continue synthroid to 50mcg all other days Check TSH and free T4 in 2mos ICD-9 : 244.9 ICD-10 : E03.9 11/18/2016 Appointment: Cony Pooletel: [address] [place], [place] [phone] [place] 11/17 lm ~sl 11/18 confirmed~sl FOLLOW UP Patient Education: Patient Medication Summary Completed 11/18/2016 Visit Diagnosis Plan: Lymphangitis Discussion: No evid ence of cellulitis at this time so will continue JAYNA hose and monitor ICD-9 : 457.2 ICD-10 : I89.1 11/04/2016 Visit Diagnosis Plan: Hypotension due to drugs Discuss ion: Will keep BP meds at current dose and monitor BP ICD-9 : 458.8 ICD-10 : I95.2 11/04/2016 Visit Diagnosis Plan: Hypothyroidism, unspecified Disc ussion: Continue brand Synthroid at 50mcg daily and check TSH, Free T4 in 2 weeks then fwup ICD-9 : 244.9 ICD-10 : E03.9 11/04/2016 Appointment: Cony Poole WPtel: [address] [place], [place] [phone] [place] 11/03 confirmed `sl FOLLOW UP 11/04/2016 Patient Education: Patient Medication Summary Completed 11/04/2016 Visit Diagnosis Plan: Hypotension due to drugs Discuss ion: Hydrate Hold Losartan tonight then decrease to 50mg q HS BP check in 1 week ICD-9 : 458.8 ICD-10 : I95.2 10/27/2016 Appointment: Cony Poole WPtel: [phone] 10/26 Confirmed~sl FOLLOW UP 10/27/2016 Patient Education: Patient Medication Summary Completed 10/27/2016 Appointment: Cony Poole WPtel: [phone] [phone] [facility] 10/26/2016 Patient Education: Patient Medication Summary Completed 10/26/2016 Visit Diagnosis Plan: Cellulitis of left lower limb Di scussion: Finish Clindamycin Follow Up: 2 weeks ICD-9 : 682.6 ICD-10 : L03.116 10/13/2016 Appointment: Cony Poole WPtel: [facility]5 [phone] 10/12 lm-sp WORK IN 10/13/2016 Patient Education: Patient Medication Summary Completed 10/13/2016 Visit Diagnosis Plan: Cellulitis of left lower limb Di scussion: Change keflex to clindamycin Add prednisone Continue compression socks and elevate ICD-9 : 682.6 ICD-10 : L03.116 10/08/2016 Appointment: Cony Poole WPtel: [facility]5 [phone] 10/07 lm~sl 10/08 confirmed`sl FOLLOW UP 10/08 Patient Education: Patient Medication Summary Completed 10/08/2016 Visit Diagnosis Plan: Hypothyroidism, unspecified Disc ussion: Change to brand synthroid 50mcg daily with no other meds or food for 4hrs Check TSH and free T4 in 6weeks ICD-9 : 244.9 ICD-10 : E03.9 10/05/2016 Visit Diagnosis Plan: Cellulitis of left lower limb Di scussion: Cephalexin for 10 days Recheck leg in 3 days unless worsening ICD-9 : 682.6 ICD-10 : L03.116 10/05/2016 Appointment: Cony Poole WPtel: [facility]5 [phone] 10/01 confirmed `sl FOLLOW UP 10/05/2016 Patient Education: Patient Medication Summary Completed 10/05/2016 Patient Education: Patient Medication Summary Completed 10/01/2016 Care Plan: VITAMIN D TOTAL (25 HYDROXY) P ending 10/01/2016 Patient Education: Patient Medication Summary Completed 09/30/2016 Care Plan: RML ASSAY THYROID STIM HORMONE Pending 09/30/2016 Care Plan: RML ASSAY OF FREE THYROXINE Pe nding 09/30/2016 Care Plan: RML VITAMIN B-12 Pending 09/30/2016 Care Plan: METABOLIC PANEL TOTAL CA LOIN C : 85108-1 Pending 09/30/2016 Visit Diagnosis Plan: Other fatigue Discussion: Contin ue increased dose synthroid Recheck TSH and T4 in 6 wks from dose change May return to exercise but go slow Follow Up: 6 weeks ICD-9 : 780.79 ICD-10 : R53.83 08/25/2016 Visit Diagnosis Plan: Localized edema Discussion: Wear compression stockings ICD-9 : 782.3 ICD-10 : R60.0 08/25/2016 Visit Diagnosis Plan: Essential (primary) hypertension Discussion: Continue amlodipine as prescribed by cardiology, continue taking in AM Continue Losartan and HCTZ ICD-9 : 401.9 ICD-10 : I10 08/25/2016 Appointment: Cony Poole WPtel: [phone] [place] 08/24 confirmed~sl FOLLOW UP 08/25/2016 Patient Education: Patient Medication Summary Completed 08/25/2016 Appointment: Cony Poole WPtel: [phone] [place] 07/30 rescheduled~sl RESCHEDULED 08/19/2016 Patient Education: Patient Medication Summary Completed 08/19/2016 Care Plan: RML COMPREHEN METABOLIC PANEL LOINC : 92727-0 Pending 08/19/2016 Care Plan: CBC Pending 08/19/2016 Patient Education: Patient Medication Summary Completed 08/03/2016 Care Plan: RML ASSAY OF FREE THYROXINE Pe nding 08/03/2016 Care Plan: RML ASSAY THYROID STIM HORMONE Pending 08/03/2016 Care Plan: RML VITAMIN B-12 Pending 08/03/2016 Care Plan: VITAMIN D TOTAL (25 HYDROXY) P ending 08/03/2016 Visit Diagnosis Plan: Hypothyroidism, unspecified Disc ussion: Continue levothyroxine at current lower dose and recheck TSH/Free T4 in 1month ICD-9 : 244.9 ICD-10 : E03.9 07/28/2016 Visit Diagnosis Plan: Weakness Discussion: Increase ac tivity Follow Up: 1 months ICD-9 : 780.79 ICD-10 : R53.1 07/28/2016 Visit Diagnosis Plan: Essential (primary) hypertension Discussion: Continue current meds and monitor BP--if BP continues low then will consider lowerning amlodopine ICD-9 : 401.9 ICD-10 : I10 07/28/2016 Appointment: Cony Poole WPtel: [phone] [phone] 07/27 confirmed~sl ACUTE ILLNESS 07/28/2016 Patient Education: Patient Medication Summary Completed 07/28/2016 Patient Education: Patient Medication Summary Completed 07/06/2016 Care Plan: RML ASSAY THYROID STIM HORMONE Pending 07/06/2016 Care Plan: RML ASSAY OF FREE THYROXINE Pe nding 07/06/2016 Appointment: Cony Poole WPtel: [phone] [phone] BP CHECK 06/25/2016 Patient Education: Patient Medication Summary Completed 06/25/2016 Patient Education: Patient Medication Summary Completed 06/25/2016 Care Plan: CBC Pending 06/25/2016 Care Plan: URINALYSIS AUTO W/O [place] : 78694-2 Pending 06/25/2016 Visit Diagnosis Plan: Essential (primary) hypertension Discussion: Discussed with Dr Poole Increase HCTZ as above Check CMP in 1-2 weeks Patient to call Dr Noble for follow up with him, 1-2 weeks and management of her HTN ICD-9 : 401.9 ICD-10 : I10 06/23/2016 Appointment: [facility] [facility] [facility] 06/23/2016 Patient Education: Patient Medication Summary Completed 06/23/2016 Visit Plan: Exam is unremarkable Will tr eat for her lingering respiratory infection symptoms since this could be the cause of her newly uncontrolled HTN (PCN listed as an allergy - patient assures me amoxicillin is all she ever really takes when an antibiotic is needed and she tolerates it without issue) Close monitoring of BP at home If BP not improving, needs to notify Dr Noble for further instructions If cough and fatigue not improving, notify our clinic for further orders Dr Poole aware of plan and agrees 06/03/2016 Appointment: Merle Hernandez [address] [facility] [facility] 06/03/2016 Patient Education: Patient Medication Summary Completed 06/03/2016 Visit Plan: Exam is fairly benign Flu ra n since her symptoms had such a sudden onset - results negative Likely viral URI Supportive care reviewed Monitor closely Follow up PRN 05/26/2016 Appointment: Merle Hernandez [phone] [id number] ACUTE ILLNESS 05/26/2016 Patient Education: Patient Medication Summary Completed 05/26/2016 Visit Plan: Continue current meds and mo nitor BP Continue temazepam at current dose--discussed risks but patient feels much better since getting good rest Check CBC, CMP, TSH, Free T4 05/20/2016 Appointment: Cony Poole WPtel: [address] [place], [place] [phone] 05/19 confirmed~sl FOLLOW UP 05/20/2016 Patient Education: Patient Medication Summary Completed 05/20/2016 Appointment: Cony Poole WPtel: [facility]5 [phone] CANCELED 04/07/2016 Visit Plan: Check right ankle x-ray Disc ussed may need veins in right ankle worked on if swelling/pain persist 03/19/2016 Appointment: Cony Poole WPtel: [address] [place], [place] [phone] ACUTE ILLNESS 03/19/2016 Patient Education: Patient Medication Summary Completed 03/19/2016 Visit Plan: Increase HCTZ to 12.5mg po e very day Recheck Chem [address] Noble next week to discuss antiarrhythmic meds Prevnar 13 today 01/13/2016 Appointment: Cony Poole WPtel: [phone] [phone] 01/08 confirmed-sp FOLLOW UP 01/13/2016 Patient Education: Patient Medication Summary Completed 01/13/2016 Visit Plan: Continue current meds and mo nitor BP Check Chem 7 12/12/2015 Appointment: Cony Poole WPtel: [phone] [phone] 7/6confirmed sl FOLLOW UP 12/12/2015 Patient Education: Patient Medication Summary Completed 12/12/2015 Appointment: Cony Poole WPtel: [address] [place], [place] [phone] RESCHEDULED 12/10/2015 Visit Plan: Add Restoril 15mg q HS--stuart ent used in hospital with no complications Add back low dose HCTZ at 12.5mg every other day Monitor BP Can hold on nebulizer treatments Check Chem 7 now and recheck 1week 12/05/2015 Appointment: Cony Poole WPtel: [facility]9 [phone] 12/02 confirmed~sl ER Follow UP 12/05/2015 Patient Education: Patient Medication Summary Completed 12/05/2015 Appointment: Cony Poole WPtel: [address] [place], [place] [phone] WORK IN 11/28/2015 Visit Plan: Due to patient's symptoms an d high blood pressure I consulted Outpatient orders written for 1L IV fluids with 1G Rocephin and Zofran for nausea. Patient sent to hospital and followup in am. 11/27/2015 Appointment: Cony Poole WPtel: [facility]4 [phone] UA 11/27/2015 Patient Education: Patient Medication Summary Completed 11/27/2015 Appointment: Cony Pooletel: [facility]6 [phone] LAB 11/25/2015 Patient Education: Patient Medication Summary Completed 11/25/2015 Care Plan: RML COMPREHEN METABOLIC PANEL LOINC : 30836-3 Pending 11/25/2015 Care Plan: RML ASSAY THYROID STIM HORMONE Pending 11/25/2015 Care Plan: CBC RML Pending 11/25/2015 Visit Plan: Review of BP log the last se veral days, is good. BP has been at goal. Would like her to try compression stockings, OTC strength. 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 Keep BP log and follow up PRN 10/21/2015 Appointment: Merle Hernandez [address] [place], [place] [phone] ACUTE ILLNESS 10/21/2015 Patient Education: Patient Medication Summary Completed 10/21/2015 Visit Plan: Stop amlodopine Increase met oprolol to to 50mg q HS and 25mg in AM Switch cozaar to 100mg daily as the insurance does not want to pay for 50mg BID dosing Low Na diet and elevate legs See Cardiology 10/17/2015 Appointment: Cony Poole WPtel: [address] [place], [place] [phone] onfirm~sl FOLLOW UP 10/17/2015 Patient Education: Patient Medication Summary Completed 10/17/2015 Visit Plan: Pt to bring in home BP/HR lo g for review Orders given for CBC, CMP, TSH, MG and 48 holter for further evaluation 10/07/2015 Appointment: Merle Hernandez [address] [place], [place] [id number] ACUTE ILLNESS 10/07/2015 Patient Education: Patient Medication Summary Completed 10/07/2015 Visit Plan: Cold vs Allergies Continue z yrtec and nasacort Add steroid pack as above Add plain mucinex, nasal rinses, vicks, humidifier, etc Call if not improving or if worsening - will likely add zpak 09/03/2015 Appointment: Merle Hernandez [address] [place], [place] [id number] ACUTE ILLNESS 09/03/2015 Patient Education: Patient Medication Summary Completed 09/03/2015 Visit Plan: BP values reviewed Change me toprolol to 12.5mg po BID BP values in 1month 08/01/2015 Appointment: Cony Poole WPtel: [phone] [phone] 07/31 confirmed-SP FOLLOW UP 08/01/2015 Patient Education: Patient Medication Summary Completed 08/01/2015 Visit Plan: Had lab in the fall--shanelle smith copy and plan on repeat lab 6mos from last lab then fwup after that Continue current meds Mammogram up-to-date 06/27/2015 Appointment: Cony Poole WPtel: [phone] [phone] 06/26/15 appt confirmed cn NEW PATIENT 06/27 Patient Education: Patient Medication Summary Completed 06/27/2015 Referral: Donald Noble WPtel: [facility] [address] [id number] [place] Referral Initiated Instructions Comment Date . Exam is unremarkable Will treat for her lingering respiratory infection symptoms since this could be the cause of her newly uncontrolled HTN (PCN listed as an allergy - patient assures me amoxicillin is all she ever really takes when an antibiotic is needed and she tolerates it without issue) Close monitoring of BP at home If BP not improving, needs to notify Dr Noble for further instructions If cough and fatigue not improving, notify our clinic for further orders Dr Poole aware of plan and agrees 06/03/2016 . Exam is fairly benign Flu ran since her symptoms had such a sudden onset - results negative Likely viral URI Supportive care reviewed Monitor closely Follow up PRN 05/26/2016 . Continue current meds and monitor BP Continue temazepam at current dose--discussed risks but patient feels much better since getting good rest Check CBC, CMP, TSH, Free T4 05/20/2016 . Check right ankle x-ray Discussed may need veins in right ankle worked on if swelling/pain persist 03/19/2016 . Increase HCTZ to 12.5mg po every day Recheck Chem [address] Noble next week to discuss antiarrhythmic meds Prevnar 13 today 01/13/2016 . Continue current meds and monitor BP Check Chem 7 12/12/2015 . Add Restoril 15mg q HS--patient used i n hospital with no complications Add back low dose HCTZ at 12.5mg every other day Monitor BP Can hold on nebulizer treatments Check Chem 7 now and recheck 1week 12/05/2015 . Due to patient's symptoms and high blo od pressure I consulted Outpatient orders written for 1L IV fluids with 1G Rocephin and Zofran for nausea. Patient sent to hospital and followup in am. 11/27/2015 . Review of BP log the last several days , is good. BP has been at goal. Would like her to try compression stockings, OTC strength. 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 Keep BP log and follow up PRN 10/21/2015 . Stop amlodopine Increase metoprolol to to 50mg q HS and 25mg in AM Switch cozaar to 100mg daily as the insurance does not want to pay for 50mg BID dosing Low Na diet and elevate legs See Cardiology 10/17/2015 . Pt to bring in home BP/HR log for revi ew Orders given for CBC, CMP, TSH, MG and 48 holter for further evaluation 10/07/2015 . Cold vs Allergies Continue zyrtec and nasacort Add steroid pack as above Add plain mucinex, nasal rinses, vicks, humidifier, etc Call if not improving or if worsening - will likely add zpak 09/03/2015 . BP values reviewed Change metoprolol to 12.5mg po BID BP values in 1month 08/01/2015 . Had lab in the fall--shanelle obtain copy a nd plan on repeat lab 6mos from last lab then fwup after that Continue current meds Mammogram up-to-date 06/27/2015 Medical Equipment No Medical Equipment data Health Concerns Section Health Concerns data not found Goals Section Goals data not found Interventions Section Interventions data not found Health Status Evaluations/Outcomes Section Health Status Evaluations/Outcomes data not found Advance Directives No Advance Directive data
--- OUTSIDE RECORDS SUMMARY | 2022-11-09 15:26 | XMS REPORT | CCD ---
Author Author Tanna Poole D.O. Organization [facility] Address [address] [place] [id number] Phone Care Team Providers Care Enrollment Counselor Name Role Phone Cony Poole D.O., PP Unavailable CCM Unavailable Summary Purpose Interface Exchange Insurance Providers Payer name Policy type / Coverage type Covered republican ID Effective Begin Date Effective End Date WPS MEDICARE PART B [place] Medicare Part B [id number] Unknown [facility] Medicare Part B [id number] Un known Family history Sister Diagnosis Age [...] Unknown Retired 06/27/[address]: 7795491 Former smoker quit 1986 06/27/[address]: 069748950 Never drinks alcohol 2015 Has the patient [...] Start Date Stop Date Status Fill Instructions atorvastatin 20 mg tablet RxNorm: 512721 Take 1 Tablet(s) Oral QD 0 10/16/2022 04/13/2023 Active Patient requests 90 days s upply hydralazine 10 mg tablet RxNorm: 287380 Take 1 Tablet(s) Oral t wo times a day 10/15/2022 04/12/2023 Active sertraline 25 mg tablet RxNorm: 441585 1/2 Tablet(s) Oral QPM r eplaces effexor 10/05/2022 01/02/2023 Active Synthroid 75 mcg tablet RxNorm: 035432 TAKE 1 TABLET BY MOUTH WEDNESDAY, WEDNESDAY, Wednesday10/05/2022 03/21/2023 Active sertraline 25 mg tablet RxNorm: 979553 1/2 Tablet(s) Oral QPM r eplaces effexor 10/05/2022 10/05/2022 Inactive Effexor XR 37.5 mg capsule,extended release RxNorm: 042940 Take 1 Capsule(s) Oral QPM for mood 10/01/2022 10/04/2022 Inactive losartan 50 mg tablet RxNorm: 063699 Take 1 Tablet(s) Oral two times a day 09/16/2022 03/14/2023 Active Synthroid 75 mcg tablet RxNorm: 056119 Take 1 Tablet(s) Oral MWF 11/25/2022 Active Synthroid 88 mcg tablet RxNorm: 466320 Take 1 Tablet(s) Oral QD Tu, Th, Sa, [place] 08/28/2022 11/25/2022 Active Synthroid 88 mcg tablet RxNorm: 009693 Take 1 Tablet(s) Oral QD Tu, Th, Sa, [place] 08/25/2022 08/25/2022 Inactive Synthroid 75 mcg tablet RxNorm: 799862 Take 1 Tablet(s) Oral MWF 08/25/2022 Inactive Synthroid 75 mcg tablet RxNorm: 180630 Take 1 Tablet(s) Oral MWF 08/24/2022 Inactive hydralazine 10 mg tablet RxNorm: 790055 Take 1 Tablet(s) Oral t wo times a day 07/28/2022 07/28/2022 Inactive metoprolol succinate ER 100 mg tablet,extended release 24 hr RxNorm: 292750 Take 1 Tablet(s) Oral QPM 07/28/2022 07/28/2022 Inactive Synthroid 88 mcg tablet RxNorm: 230678 Take 1 Tablet(s) Oral QD Wednesday-Wednesday07/28/2022 08/24/2022 Inactive Synthroid 75 mcg tablet RxNorm: 671318 Take 1 Tablet(s) Oral QA M Sat/Sun 07/28/2022 08/24/2022 Inactive losartan 50 mg tablet RxNorm: 742097 1 Tablet(s) Oral two times a day 07/28/2022 07/28/2022 Inactive Zithromax Z-Topher 250 mg tablet RxNorm: 080432 Take 2 Tab let(s) Oral QD x1 dose then 1 daily 07/14/2022 07/18/2022 Inactive losartan 50 mg tablet RxNorm: 460349 TAKE ONE TABLET BY MOUTH DAILY 07/14/2022 07/27/2022 Inactive Synthroid 88 mcg tablet RxNorm: 263226 Take 1 Tablet(s) Oral QD Wednesday-Wednesday06/23/2022 07/27/2022 Inactive Synthroid 75 mcg tablet RxNorm: 986367 Take 1 Tablet(s) Oral QA M Sat/Sun 06/23/2022 07/27/2022 Inactive Xarelto 15 mg tablet RxNorm: 1890352 Take 1 Tablet(s) Oral QD 06/0906/09/2022 Inactive metoprolol succinate ER 100 mg tablet,extended release 24 hr RxNorm: 213789 Take 1 Tablet(s) Oral QD 06/09/2022 06/09/2022 Inactive atorvastatin 20 mg tablet RxNorm: 367791 Take 1 Tablet(s) Oral QD 0 06/09/2022 06/09/2022 Inactive budesonide 0.5 mg/2 mL suspension for nebulization RxNorm: 3 20379 USE 1 VIAL IN NEBULIZER TWICE DAILY (RINSE MOUTH AFTER EACH TREATMENT) 05/29/2022 No Stop Date Active Perforomist 20 mcg/2 mL solution for nebulization RxNorm: 12 95394 USE 1 VIAL IN NEBULIZER TWICE DAILY (MORNING AND EVENING) 05/29/2022 No Stop Date Acti ve Perforomist 20 mcg/2 mL solution for nebulization RxNorm: 12 68628 USE 1 VIAL IN NEBULIZER TWICE DAILY - morning and evening 05/26/2022 05/26/2022 Inac tive Perforomist 20 mcg/2 mL solution for nebulization RxNorm: 12 86580 USE 1 VIAL IN NEBULIZER TWICE DAILY - morning and evening 05/26/2022 05/26/2022 Inac tive budesonide 0.5 mg/2 mL suspension for nebulization RxNorm: 3 91313 USE 1 VIAL IN NEBULIZER TWICE DAILY - rinse mouth after treatment 05/26/2022 12/20/20 22 Inactive albuterol sulfate 2.5 mg/3 mL (0.083 %) solution for n ebulization RxNorm: 096440 USE 1 VIAL IN NEBULIZER DAILY - for rescue 05/26/2022 05/26/2022 Inactive budesonide 0.5 mg/2 mL suspension for nebulization RxNorm: 3 68229 USE 1 VIAL IN NEBULIZER TWICE DAILY - rinse mouth after treatment 05/26/2022 05/26/20 22 Inactive budesonide 0.5 mg/2 mL suspension for nebulization RxNorm: 3 11458 USE 1 VIAL IN NEBULIZER TWICE DAILY - rinse mouth after treatment 05/26/2022 05/26/20 Inactive losartan 50 mg tablet RxNorm: 811251 Take 1 Tablet(s) Oral two times a day 05/25/2022 05/25/2022 Inactive Synthroid 88 mcg tablet RxNorm: 337426 Take 1 Tablet(s) Oral QD 03/202206/22/2022 Inactive Astepro Allergy 205.5 mcg (0.15 %) nasal spray RxNorm: 19956 84 Take 1 [place] Nasal two times a day in each nostril 03/19/2022 No Stop Date Active Perforomist 20 mcg/2 mL solution for nebulization RxNorm: 12 43240 USE 1 VIAL IN NEBULIZER TWICE DAILY - morning and evening 02/17/2022 02/17/2022 Inac tive Xarelto 15 mg tablet RxNorm: 2462578 Take 1 Tablet(s) Oral QD 02/1706/09/2022 Inactive budesonide 0.5 mg/2 mL suspension for nebulization RxNorm: 3 20960 USE 1 VIAL IN NEBULIZER TWICE DAILY - rinse mouth after treatment 02/05/2022 02/06/20 22 Inactive Perforomist 20 mcg/2 mL solution for nebulization RxNorm: 12 74289 USE 1 VIAL IN NEBULIZER TWICE DAILY - morning and evening 02/05/2022 02/05/2022 Inac tive albuterol sulfate 2.5 mg/3 mL (0.083 %) solution for n ebulization RxNorm: 438982 USE 1 VIAL IN NEBULIZER DAILY - for rescue 02/05/2022 02/05/2022 Inactive ipratropium bromide 0.02 % solution for inhalation RxNorm: 8 62314 USE 1 VIAL IN NEBULIZER EVERY 4 HOURS - and as needed 02/05/2022 02/16/2022 Inactive albuterol sulfate HFA 90 mcg/actuation aerosol inhaler RxNor m: 0269708 Take 2 Puff(s) Inhalation Q4H as needed as needed 01/27/2022 No Stop Date Activ e Synthroid 88 mcg tablet RxNorm: 099414 Take 1 Tablet(s) Oral QD 01/26/2022 Inactive BRAND NAME ONLY losartan 50 mg tablet RxNorm: 524940 TAKE ONE TABLET BY MOUTH DAILY , REPLACES 25MG DOSE 01/15/2022 07/13/2022 Inactive Symbicort 160 mcg-4.5 mcg/actuation HFA aerosol inhaler RxNo rm: 0854443 2 Puff(s) Inhalation two times a day 10/30/2021 11/28/2021 Inactive Symbicort 160 mcg-4.5 mcg/actuation HFA aerosol inhaler RxNo rm: 0080982 2 Puff(s) Inhalation two times a day 10/30/2021 10/30/2021 Inactive Synthroid 88 mcg tablet RxNorm: 438860 Take 1 Tablet(s) Oral QD 10/29/2021 Inactive Breo Ellipta 200 mcg-25 mcg/dose powder for inhalation RxNor m: 6028789 Inhale 1 Puff(s) Inhalation QD 10/29/2021 10/29/2021 Inactive Breo Ellipta 200 mcg-25 mcg/dose powder for inhalation RxNor m: 6039099 Inhale 1 Puff(s) Inhalation QD 10/29/2021 10/29/2021 Inactive replaces a dvair Synthroid 88 mcg tablet RxNorm: 560739 Take 1 Tablet(s) Oral QD 10/28/2021 Inactive BRAND NAME ONLY fluticasone 113 mcg-salmeterol 14 mcg/actuation breath activated powdr RxNorm: 1284049 Inhale 1 Puff(s) Inhalation QAM 10/28/2021 10/28/2021 Inactive Flonase Allergy Relief 50 mcg/actuation nasal spray,suspensi on RxNorm: 8954453 2 [place] Nasal every night at bedtime 10/28/2021 10/12/2022 Inactive losartan 50 mg tablet RxNorm: 878519 1 Tablet(s) Oral QD replac es 25mg dose 10/20/2021 10/20/2021 Inactive metoprolol succinate ER 100 mg tablet,extended release 24 hr RxNorm: 736055 1 Tablet(s) Oral QD 09/23/2021 06/09/2022 Inactive potassium chloride ER 8 mEq capsule,extended release RxNorm: 872307 Take 1 Capsule(s) Oral QOD with lasix 09/15/2021 03/18/2022 Inactive Synthroid 88 mcg tablet RxNorm: 270937 Take 1 Tablet(s) Oral QD 12/202110/27/2021 Inactive BRAND NAME ONLY potassium chloride ER 8 mEq capsule,extended release RxNorm: 620995 1 Capsule(s) Oral QOD with lasix 09/11/2021 09/11/2021 Inactive metoprolol succinate ER 100 mg tablet,extended release 24 hr RxNorm: 850143 Take 1/2 Tablet(s) Oral QD 08/21/2021 09/22/2021 Inactive Synthroid 88 mcg tablet RxNorm: 481535 Take 1 Tablet(s) Oral QD 07/23/2021 Inactive BRAND NAME ONLY clindamycin HCl 300 mg capsule RxNorm: 860369 Take 1 Ca psule(s) Oral three times a day 07/03/2021 07/09/2021 Inactive clindamycin HCl 300 mg capsule RxNorm: 469259 Take 1 Ca psule(s) Oral three times a day 07/03/2021 07/03/2021 Inactive Synthroid 88 mcg tablet RxNorm: 617226 Take 1 Tablet(s) Oral QD 07/03/2021 Inactive BRAND NAME ONLY0 potassium chloride ER 8 mEq capsule,extended release RxNorm: 902495 1 Capsule(s) Oral QOD with lasix 06/26/2021 09/11/2021 Inactive potassium chloride ER 8 mEq tablet,extended release RxNorm: 319770 Take 2 Tablet(s) Oral two times a day 06/23/2021 06/25/2021 Inactive atorvastatin 20 mg tablet RxNorm: 674820 Take 1 Tablet(s) Oral QD 0 06/19/2021 06/09/2022 Inactive diltiazem CD 300 mg capsule,extended release 24 hr RxNorm: 8 55682 Take 1 Capsule(s) Oral QAM 06/19/2021 08/20/2021 Inactive potassium chloride ER 8 mEq tablet,extended release RxNorm: 427261 Take 2 Tablet(s) Oral two times a day 06/19/2021 06/23/2021 Inactive fluticasone 113 mcg-salmeterol 14 mcg/actuation breath activated powdr RxNorm: 1405521 Inhale 1 Puff(s) Inhalation QAM 06/19/2021 10/27/2021 Inactive furosemide 40 mg tablet RxNorm: 442280 Take 1 Tablet(s) Oral QAM 03/18/2022 Inactive alprazolam 0.25 mg tablet RxNorm: 684112 Take 1 Tablet(s) Oral Q8H as needed 06/19/2021 07/29/2021 Inactive gabapentin 100 mg capsule RxNorm: 584081 Take 2 Capsule (s) Oral every night at bedtime 06/19/2021 07/29/2021 Inactive losartan 25 mg tablet RxNorm: 101774 Take 1 Tablet(s) Oral QD 06/1910/20/2021 Inactive tramadol 50 mg tablet RxNorm: 860283 Take 1 Tablet(s) O ral three times a day as needed 06/19/2021 10/27/2021 Inactive Tylenol Arthritis Pain 650 mg tablet,extended release RxNorm : 5906489 Take 1 Tablet(s) Oral four times a day 05/05/2021 03/18/2022 Inactive Synthroid 88 mcg tablet RxNorm: 915404 Take 1 Tablet(s) Oral QD 04/30/2021 Inactive BRAND NAME ONLY0 Synthroid 88 mcg tablet RxNorm: 382643 1 Tablet(s) Oral QD 04/29/20 21 04/29/2021 Inactive Synthroid 88 mcg tablet RxNorm: 302120 1 Tablet(s) Oral QD 04/29/20 21 04/29/2021 Inactive magnesium oxide 400 mg (241.3 mg magnesium) tablet RxNorm: 1 87001 1 Tablet(s) Oral every night at bedtime 04/03/2021 No Stop Date Active Vitamin B12 1000mcg Tablet RxNorm: Take 1/2 Tablet(s) Oral QD 04/03/2021 No Stop Date Active aspirin 81 mg capsule RxNorm: 227323 1 Capsule(s) Oral QD No Stop Date Active doxazosin 1 mg tablet RxNorm: 821440 1 Tablet(s) Oral QPM 03/19/2021 04/02/2021 Inactive Cartia XT 240 mg capsule,extended release RxNorm: 262020 Take 1 Capsule(s) Oral QD 02/06/2021 06/18/2021 Inactive fluticasone propionate 50 mcg/actuation nasal spray,suspensi on RxNorm: 9309823 SHAKE LIQUID AND USE 2 SPRAYS IN EACH NOSTRIL EVERY NIGHT AT BEDTIME 12/19/2020 01/17/2021 Inactive diltiazem 120 mg tablet RxNorm: 406446 1 Tablet(s) Oral QD 12/12/1902/05/2021 Inactive Flonase Allergy Relief 50 mcg/actuation nasal spray,suspensi on RxNorm: 0679487 2 [place] Nasal every night at bedtime 11/21/2020 11/21/2020 Inactive diltiazem 120 mg tablet RxNorm: 523295 Take 1 Tablet(s) Oral tw o times a day 11/11/2020 12/10/2020 Inactive oxybutynin chloride 5 mg tablet RxNorm: 395566 Take 1 T ablet(s) Oral every night at bedtime for overactive bladder 11/11/2020 11/11/2020 Inactive oxybutynin chloride 5 mg tablet RxNorm: 283063 Take 1 T ablet(s) Oral every night at bedtime for overactive bladder 11/11/2020 11/11/2020 Inactive oxybutynin chloride 5 mg tablet RxNorm: 058416 TAKE 1 T ABLET BY MOUTH EVERY NIGHT AT BEDTIME FOR OVERACTIVE BLADDER 11/11/2020 02/05/2021 Inactive Patient requests 90 days supply MagOx 400 mg (241.3 mg magnesium) tablet RxNorm: 660971 TAKE 1 TABLET BY MOUTH EVERY OTHER DAY 10/28/2020 02/05/2021 Inactive Synthroid 75 mcg tablet RxNorm: 670407 TAKE 1 TABLET BY MOUTH EVERY DAY DIRECTED 09/06/2020 04/29/2021 Inactive diltiazem CD 120 mg capsule,extended release 24 hr RxNorm: 8 59349 1 Tablet(s) Oral QD 09/05/2020 11/10/2020 Inactive Synthroid 75 mcg tablet RxNorm: 791374 TAKE 1 TABLET BY MOUTH EVERY DAY DIRECTED 09/03/2020 09/05/2020 Inactive Synthroid 75 mcg tablet RxNorm: 843095 TAKE 1 TABLET BY MOUTH EVERY DAY DIRECTED 09/03/2020 09/02/2020 Inactive MagOx 400 mg (241.3 mg magnesium) tablet RxNorm: 976898 1 Table t(s) Oral QOD 07/30/2020 11/10/2020 Inactive MagOx 400 mg (241.3 mg magnesium) tablet RxNorm: 841691 1 Table t(s) Oral QOD 07/29/2020 07/29/2020 Inactive diltiazem CD 120 mg capsule,extended release 24 hr RxNorm: 8 24490 1 Tablet(s) Oral two times a day 07/29/2020 09/04/2020 Inactive diltiazem CD 120 mg capsule,extended release 24 hr RxNorm: 8 53481 1 Tablet(s) Oral two times a day 07/04/2020 07/03/2020 Inactive diltiazem CD 120 mg capsule,extended release 24 hr RxNorm: 8 43336 1 Tablet(s) Oral two times a day 07/04/2020 07/28/2020 Inactive Eliquis 5 mg tablet RxNorm: 7240371 TAKE 1 TABLET BY MOUTH TWICE DAILY 06/10/2020 02/16/2022 Inactive diltiazem CD 120 mg capsule,extended release 24 hr RxNorm: 8 49090 TAKE 1 CAPSULE BY MOUTH DAILY 06/10/2020 06/09/2020 Inactive Eliquis 5 mg tablet RxNorm: 5364108 TAKE 1 TABLET BY MOUTH TWICE DAILY 06/10/2020 06/09/2020 Inactive diltiazem CD 120 mg capsule,extended release 24 hr RxNorm: 8 16926 TAKE 1 CAPSULE BY MOUTH DAILY 06/10/2020 07/03/2020 Inactive Synthroid 75 mcg tablet RxNorm: 477128 TAKE 1 TABLET BY MOUTH EVERY DAY DIRECTED 06/10/2020 09/02/2020 Inactive Flonase Allergy Relief 50 mcg/actuation nasal spray,suspensi on RxNorm: 5764911 2 [place] Nasal every night at bedtime 04/26/2020 04/26/2020 Inactive Vitamin D3 25 mcg (1,000 unit) capsule RxNorm: 567389 3 Capsule (s) Oral QD 04/22/2020 No Stop Date Active MagOx 400 mg (241.3 mg magnesium) tablet RxNorm: 000304 1 Table t(s) Oral QOD 04/22/2020 04/21/2020 Inactive MagOx 400 mg (241.3 mg magnesium) tablet RxNorm: 715690 1 Table t(s) Oral QOD 04/22/2020 07/21/2020 Inactive prednisone 10 mg tablet RxNorm: 926706 1 Tablet(s) Oral two norma es a day 03/22/2020 03/27/2020 Inactive Eliquis 5 mg tablet RxNorm: 7003390 TAKE 1 TABLET BY MOUTH TWICE DAILY 03/15/2020 06/09/2020 Inactive Synthroid 75 mcg tablet RxNorm: 942495 TAKE 1 TABLET BY MOUTH EVERY DAY DIRECTED 03/15/2020 06/09/2020 Inactive furosemide 20 mg tablet RxNorm: 178018 1 Tablet(s) Oral QAM as needed 03/14/2020 06/20/2020 Inactive diltiazem CD 120 mg capsule,extended release 24 hr RxNorm: 8 61933 TAKE 1 CAPSULE BY MOUTH DAILY 03/14/2020 06/09/2020 Inactive amiodarone 200 mg tablet RxNorm: 678755 TAKE 1 TABLET BY MOUTH SIMON Y 03/14/2020 06/23/2020 Inactive potassium chloride ER 20 mEq tablet,extended release RxNorm: 443089 1 Tablet(s) Oral two times a day as needed 02/29/2020 06/20/2020 Inactive furosemide 20 mg tablet RxNorm: 016540 1 Tablet(s) Oral QAM as needed 02/29/2020 03/13/2020 Inactive Macrobid 100 mg capsule RxNorm: 063010 1 Capsule(s) Oral two ti mes a day 02/15/2020 02/18/2020 Inactive Macrobid 100 mg capsule RxNorm: 984481 1 Capsule(s) Oral two ti mes a day 02/15/2020 02/14/2020 Inactive magnesium oxide 400 mg (241.3 mg magnesium) tablet RxNorm: 1 73381 TAKE 1/2 TABLET BY MOUTH EVERY DAY 01/30/2020 02/21/2020 Inactive Flonase Allergy Relief 50 mcg/actuation nasal spray,suspensi on RxNorm: 5453778 2 [place] Nasal every night at bedtime 01/22/2020 04/25/2020 Inactive furosemide 20 mg tablet RxNorm: 376231 1 Tablet(s) Oral QOD 020 02/12/2020 Inactive potassium chloride ER 20 mEq tablet,extended release RxNorm: 479576 1 Tablet(s) Oral two times a day 01/04/2020 02/12/2020 Inactive potassium chloride ER 20 mEq tablet,extended release RxNorm: 530794 TAKE 1 TABLET BY MOUTH TWICE DAILY 01/03/2020 01/03/2020 Inactive diltiazem CD 120 mg capsule,extended release 24 hr RxNorm: 8 71209 1 Capsule(s) Oral QD 12/26/2019 03/13/2020 Inactive Colace 100 mg capsule RxNorm: 2600619 2 Capsule(s) Oral QD 12/26/19 20 03/18/2022 Inactive Flonase Allergy Relief 50 mcg/actuation nasal spray,suspensi on RxNorm: 1469165 2 SPRAY NASAL QHS 12/26/2019 12/28/2019 Inactive amiodarone 200 mg tablet RxNorm: 396725 1 Tablet(s) Oral QD 020 01/21/2020 Inactive Eliquis 5 mg tablet RxNorm: 0484051 1 Tablet(s) Oral two times a da y 12/26/2019 03/14/2020 Inactive potassium chloride ER 20 mEq tablet,extended release RxNorm: 047170 2 Tablet(s) Oral QD with furosemide 12/20/2019 01/21/2020 Inactive furosemide 20 mg tablet RxNorm: 702174 1 Tablet(s) Oral QAM 020 01/18/2020 Inactive Synthroid 75 mcg tablet RxNorm: 628454 1 Tablet(s) Oral QD 12/18/19 20 02/16/2020 Inactive potassium chloride ER 20 mEq tablet,extended release RxNorm: 817399 2 Tablet(s) Oral QOD with furosemide 11/29/2019 12/19/2019 Inactive furosemide 40 mg tablet RxNorm: 164395 1 Tablet(s) Oral QOD 020 12/19/2019 Inactive amlodipine 5 mg tablet RxNorm: 441400 1 Tablet(s) Oral every ni ght at bedtime 11/27/2019 12/18/2019 Inactive Lasix 40 mg tablet RxNorm: 446314 1 Tablet(s) Oral QAM 11/23/2019 Inactive potassium chloride ER 20 mEq tablet,extended release RxNorm: 19800612 TAKE 1 TABLET BY MOUTH TWICE DAILY 1 Tablet(s) Oral QD 11/23/2019 02/12/2020 Inactive Lasix 40 mg tablet RxNorm: 1 Tablet(s) Oral QAM 11/23/2019 Inactive potassium chloride ER 20 mEq tablet,extended release RxNorm: 19800612 TAKE 1 TABLET BY MOUTH TWICE DAILY 1 Tablet(s) Oral QD 11/23/2019 11/22/2019 Inactive cefdinir 300 mg capsule RxNorm: 263977 1 Capsule(s) Oral two ti mes a day 11/09/2019 11/16/2019 Inactive temazepam 15 mg capsule RxNorm: 932644 TAKE 1 CAPSULE B Y MOUTH EVERY NIGHT AT BEDTIME 11/06/2019 12/18/2019 Inactive magnesium oxide 400 mg (241.3 mg magnesium) tablet RxNorm: 1 58643 TAKE 1/2 TABLET BY MOUTH EVERY DAY 11/03/2019 2020 Inactive Synthroid 75 mcg tablet RxNorm: 912594 TAKE 1 TABLET BY MOUTH E 10/16/2019 12/17/2019 Inactive potassium chloride ER 20 mEq tablet,extended release RxNorm: 067158 TAKE 1 TABLET BY MOUTH TWICE DAILY 10/02/2019 11/28/2019 Inactive baclofen 10 mg tablet RxNorm: 930507 1/2-1 Tablet(s) Or al QPM as needed for muscle spasm 09/21/2019 01/21/2020 Inactive hydrochlorothiazide 25 mg tablet RxNorm: 556009 TAKE 1 TABLET BY MOUTH EVERY MORNING 09/21/2019 11/26/2019 Inactive amlodipine 5 mg tablet RxNorm: 410471 TAKE 1 TABLET BY MOUTH TW ICE DAILY 09/06/2019 11/27/2019 Inactive magnesium oxide 400 mg (241.3 mg magnesium) tablet RxNorm: 1 69441 TAKE 1/2 TABLET BY MOUTH EVERY DAY 09/06/2019 11/02/2019 Inactive temazepam 15 mg capsule RxNorm: 662267 TAKE 1 CAPSULE B Y MOUTH EVERY DAY AT BEDTIME 09/04/2019 11/05/2019 Inactive baclofen 10 mg tablet RxNorm: 184224 1/2-1 Tablet(s) Or al QPM as needed for muscle spasm 08/25/2019 09/20/2019 Inactive Synthroid 75 mcg tablet RxNorm: 059546 TAKE 1 TABLET BY MOUTH E 08/17/2019 10/15/2019 Inactive Cytomel 5 mcg tablet RxNorm: 859615 TAKE 1 TABLET BY MOUTH EVERY DA Y 08/13/2019 01/21/2020 Inactive potassium chloride ER 20 mEq tablet,extended release RxNorm: 776018 TAKE 1 TABLET BY MOUTH TWICE DAILY 07/06/2019 10/01/2019 Inactive Synthroid 75 mcg tablet RxNorm: 039308 1 Tablet(s) Oral QD Recheck labs in 2 months 06/21/2019 08/16/2019 Inactive Recheck labs in 2 months Synthroid 75 mcg tablet RxNorm: 553687 1 Tablet(s) Oral QD Recheck labs in 2 months 06/21/2019 06/20/2019 Inactive Recheck labs in 2 months amlodipine 5 mg tablet RxNorm: 905430 TAKE 1 TABLET BY MOUTH TW ICE DAILY 06/11/2019 09/05/2019 Inactive Diflucan 100 mg tablet RxNorm: 046598 1 Tablet(s) Oral QD 05/29/2019 06/04/2019 Inactive Zithromax Z-Topher 250 mg tablet RxNorm: 956037 Tablet(s) Oral as directed 05/29/2019 05/28/2019 Inactive Zithromax Z-Topher 250 mg tablet RxNorm: 874140 Tablet(s) Oral as directed 05/29/2019 05/29/2019 Inactive Diflucan 100 mg tablet RxNorm: 953049 1 Tablet(s) Oral QD 05/29/2019 05/28/2019 Inactive cefdinir 300 mg capsule RxNorm: 385902 1 Capsule(s) Oral two ti mes a day 05/19/2019 05/22/2019 Inactive Synthroid 50 mcg tablet RxNorm: 333279 1 TABLET(S) PO QD 05/18/2019 0 06/20/2019 Inactive lab draw in 2 months to recheck thyroid temazepam 15 mg capsule RxNorm: 449901 TAKE 1 CAPSULE B Y MOUTH EVERY DAY AT BEDTIME 05/18/2019 07/16/2019 Inactive Cytomel 5 mcg tablet RxNorm: 791696 1 Tablet(s) Oral QD 05/18/2019 Inactive cefdinir 300 mg capsule RxNorm: 079430 1 Capsule(s) Oral two ti mes a day 05/18/2019 05/18/2019 Inactive magnesium oxide 400 mg (241.3 mg magnesium) tablet RxNorm: 1 31897 1/2 TABLET(S) PO QD 05/10/2019 05/10/2019 Inactive temazepam 15 mg capsule RxNorm: 690748 TAKE 1 CAPSULE B Y MOUTH EVERY DAY AT BEDTIME 05/09/2019 05/16/2019 Inactive magnesium oxide 400 mg (241.3 mg magnesium) tablet RxNorm: 1 25344 1/2 TABLET(S) PO QD 05/02/2019 05/09/2019 Inactive nystatin 100,000 unit/mL oral suspension RxNorm: 500322 5 Milliliter(s) Oral four times a day 04/24/2019 05/07/2019 Inactive cephalexin 500 mg capsule RxNorm: 558295 1 Capsule(s) Oral thre e times a day 04/21/2019 04/27/2019 Inactive cephalexin 500 mg capsule RxNorm: 262591 1 Capsule(s) Oral thre e times a day 04/21/2019 04/20/2019 Inactive potassium chloride ER 20 mEq tablet,extended release RxNorm: 504090 1 Tablet(s) Oral two times a day 04/10/2019 07/05/2019 Inactive Patient r equests 90 days supplyPatient requests 90 days supply nystatin 100,000 unit/mL oral suspension RxNorm: 605664 5 Milliliter(s) Oral four times a day 04/10/2019 04/23/2019 Inactive Diflucan 100 mg tablet RxNorm: 864050 1 Tablet(s) Oral QD 04/10/2019 04/17/2019 Inactive temazepam 15 mg capsule RxNorm: 611201 TAKE 1 CAPSULE B Y MOUTH EVERY DAY AT BEDTIME 04/04/2019 05/03/2019 Inactive Synthroid 50 mcg tablet RxNorm: 916779 1 TABLET(S) PO QD 04/04/2019 1 07/18/2018 Inactive lab draw in 2 months to recheck thyroid magnesium oxide 400 mg (241.3 mg magnesium) tablet RxNorm: 1 37397 1 Tablet(s) Oral QOD 04/04/2019 02/21/2020 Inactive hydrochlorothiazide 25 mg tablet RxNorm: 230550 1 Tablet(s) Oral QA M 03/28/2019 09/20/2019 Inactive amlodipine 5 mg tablet RxNorm: 723569 1 TABLET(S) PO BID 03/15/2019 0 06/12/2019 Inactive magnesium oxide 400 mg (241.3 mg magnesium) tablet RxNorm: 1 65086 1/2 TABLET(S) PO QD 03/06/2019 04/03/2019 Inactive Cytomel 5 mcg tablet RxNorm: 377272 1 Tablet(s) PO QD 02/20/201902/05 Inactive Cytomel 5 mcg tablet RxNorm: 662980 1 Tablet(s) PO QD 02/20/201905/07 Inactive amlodipine 5 mg tablet RxNorm: 004005 1 Tablet(s) PO BID 02/16/2019 0 02/15/2019 Inactive amlodipine 5 mg tablet RxNorm: 876487 1 Tablet(s) PO BID 02/16/2019 1 07/17/2018 Inactive amlodipine 5 mg tablet RxNorm: 753110 1 Tablet(s) PO BID 02/16/2019 0 02/16/2019 Inactive Synthroid 50 mcg tablet RxNorm: 925832 1 TABLET(S) PO QD 02/13/2019 1 Inactive Synthroid 50 mcg tablet RxNorm: 750889 1 TABLET(S) PO QD 01/16/2019 0 02/12/2019 Inactive magnesium oxide 400 mg (241.3 mg magnesium) tablet RxNorm: 1 14093 1/2 Tablet(s) PO QD 01/11/2019 03/05/2019 Inactive temazepam 15 mg capsule RxNorm: 543840 1 Capsule(s) PO QHS 01/04/20 19 04/03/2019 Inactive cefdinir 300 mg capsule RxNorm: 452343 1 Capsule(s) PO BID 12/22/19 19 12/20/2018 Inactive cefdinir 300 mg capsule RxNorm: 151496 1 Capsule(s) PO BID 12/22/19 19 12/24/2018 Inactive hydrochlorothiazide 25 mg tablet RxNorm: 078057 1 Tablet(s) PO QAM 12/19/2018 03/27/2019 Inactive magnesium oxide 400 mg (241.3 mg magnesium) tablet RxNorm: 1 57923 1/2 Tablet(s) PO QD 12/15/2018 01/11/2019 Inactive magnesium oxide 400 mg (241.3 mg magnesium) tablet RxNorm: 1 26643 1/2 Tablet(s) PO QD 12/15/2018 12/14/2018 Inactive Flonase Allergy Relief 50 mcg/actuation nasal spray,suspensi on RxNorm: 6327849 2 SPRAY NASAL QHS 11/09/2018 12/11/2018 Inactive temazepam 15 mg capsule RxNorm: 332012 1 Capsule(s) PO QHS 11/08/1901/02/2019 Inactive Synthroid 50 mcg tablet RxNorm: 520495 1 Tablet(s) PO QD 10/21/2018 0 01/15/2019 Inactive potassium chloride ER 20 mEq tablet,extended release RxNorm: 750672 Tablet(s) 1 TABLET(S) PO BID 10/19/2018 04/09/2019 Inactive Patient reque sts 90 days supplyPatient requests 90 days supply Flonase Allergy Relief 50 mcg/actuation nasal spray,suspensi on RxNorm: 8688509 2 SPRAY NASAL QHS 10/14/2018 12/11/2018 Inactive Patient reques ts 90 days supply Flonase Allergy Relief 50 mcg/actuation nasal spray,suspensi on RxNorm: 0986254 2 [place] NASAL QHS 10/13/2018 10/13/2018 Inactive temazepam 15 mg capsule RxNorm: 325823 1 Capsule(s) PO QHS 10/06/19 19 11/06/2018 Inactive Synthroid 50 mcg tablet RxNorm: 428016 1 Tablet(s) PO QD 10/05/2018 0 10/20/2018 Inactive promethazine 6.25 mg/5 mL oral syrup RxNorm: 092514 5 M illiliter(s) PO Q6H as needed for cough 09/30/2018 12/11/2018 Inactive promethazine-DM 6.25 mg-15 mg/5 mL oral syrup RxNorm: 705953 5 PO Q6H as needed for cough 09/30/2018 12/11/2018 Inactive prednisone 10 mg tablet RxNorm: 696805 1 Tablet(s) PO QD 09/27/2018 0 09/26/2018 Inactive prednisone 10 mg tablet RxNorm: 777767 1 Tablet(s) PO QD 09/27/2018 0 10/03/2018 Inactive cefdinir 300 mg capsule RxNorm: 630524 1 Capsule(s) PO BID 09/24/19 19 09/29/2018 Inactive Macrobid 100 mg capsule RxNorm: 528516 1 Capsule(s) PO BID 09/21/1909/25/2018 Inactive potassium chloride ER 20 mEq tablet,extended release RxNorm: 292188 1 TABLET(S) PO BID 09/14/2018 10/13/2018 Inactive Patient reques ts 90 days supplyPatient requests 90 days supply potassium chloride ER 20 mEq tablet,extended release RxNorm: 282016 1 Tablet(s) PO BID 09/12/2018 09/13/2018 Inactive Patient reques ts 90 days supply Macrobid 100 mg capsule RxNorm: 002816 1 Capsule(s) PO BID 09/06/1909/11/2018 Inactive potassium chloride ER 20 mEq tablet,extended release RxNorm: 261953 1 TABLET(S) PO QD 1 TABLET(S) PO QD 08/26/2018 09/11/2018 Inactive Patien t requests 90 days supply potassium chloride ER 20 mEq tablet,extended release RxNorm: 518056 1 Tablet(s) PO QD 1 TABLET(S) PO QD 08/26/2018 08/25/2018 Inactive potassium chloride ER 20 mEq tablet,extended release RxNorm: 382637 1 TABLET(S) PO QD 08/25/2018 08/25/2018 Inactive Synthroid 50 mcg tablet RxNorm: 845680 1 TABLET(S) PO QD DAW1 08/2309/04/2018 Inactive potassium chloride ER 20 mEq tablet,extended release RxNorm: 272156 1 Tablet(s) PO QD 07/28/2018 08/24/2018 Inactive potassium chloride ER 20 mEq tablet,extended release RxNorm: 511766 1 Tablet(s) PO QD 07/28/2018 07/27/2018 Inactive hydrochlorothiazide 25 mg tablet RxNorm: 182889 1 Tablet(s) PO QAM 06/27/2018 12/18/2018 Inactive Synthroid 50 mcg tablet RxNorm: 150580 1 Tablet(s) PO QD DAW1 06/2708/22/2018 Inactive Synthroid 50 mcg tablet RxNorm: 571473 1 TABLET(S) PO QD DAW06/1306/26/2018 Inactive Synthroid 75 mcg tablet RxNorm: 984457 1 TABLET(S) PO QD 06/13/2018 0 09/04/2018 Inactive BRAND ONLY mupirocin 2 % topical ointment RxNorm: 404283 1 Applica tion TOP BID to affected area as needed 05/03/2018 09/14/2018 Inactive hydrochlorothiazide 25 mg tablet RxNorm: 969068 1 TABLET(S) PO QD 1 07/02/2017 06/26/2018 Inactive Synthroid 50 mcg tablet RxNorm: 835550 1 Tablet(s) PO QD DAW04/1506/12/2018 Inactive Synthroid 50 mcg tablet RxNorm: 592487 1 Tablet(s) PO QD DAW04/1504/14/2018 Inactive Synthroid 75 mcg tablet RxNorm: 414169 1 Tablet(s) PO QD 03/15/2018 1 06/14/2017 Inactive BRAND ONLY temazepam 15 mg capsule RxNorm: 227684 1 Capsule(s) PO QHS 03/15/20 18 06/12/2018 Inactive Synthroid 75 mcg tablet RxNorm: 773049 1 Tablet(s) PO QD 01/27/2018 1 Inactive BRAND ONLY Synthroid 75 mcg tablet RxNorm: 684565 1 Tablet(s) PO QD (6 day s per week) 01/17/2018 01/26/2018 Inactive BRAND ONLY Duexis 800 mg-26.6 mg tablet RxNorm: 0434786 1/2 Tablet(s) PO BID 0 10/20/2017 10/22/2017 Inactive Synthroid 75 mcg tablet RxNorm: 399062 1 Tablet(s) PO QD 09/17/2017 1 Inactive BRAND ONLY hydrochlorothiazide 25 mg tablet RxNorm: 978023 1 TABLET(S) PO QD 0 08/30/2017 05/01/2018 Inactive hydrochlorothiazide 25 mg tablet RxNorm: 505570 1 Tablet(s) PO QAM 06/03/2017 09/14/2018 Inactive hydrochlorothiazide 12.5 mg tablet RxNorm: 046466 1 Tablet(s) PO QA M 05/25/2017 06/02/2017 Inactive Synthroid 75 mcg tablet RxNorm: 507155 1 Tablet(s) PO QD 05/14/2017 0 09/17/2017 Inactive BRAND ONLY Restoril 15 mg capsule RxNorm: 806089 TAKE 1 CAPSULE BY MOUTH EVERY NIGHT AT BEDTIME NEEDED 03/05/2017 04/02/2017 Inactive Synthroid 75 mcg tablet RxNorm: 808550 1 Tablet(s) PO QD 01/18/2017 1 07/15/2016 Inactive BRAND ONLY Synthroid 50 mcg tablet RxNorm: 977485 1 Tablet(s) PO QD 01/13/2017 0 01/17/2017 Inactive tizanidine 2 mg tablet RxNorm: 386200 1 Tablet(s) PO QHS for spasm 01/04/2017 03/21/2017 Inactive tizanidine 2 mg tablet RxNorm: 116199 1 Tablet(s) PO QHS for spasm 12/17/2016 01/04/2017 Inactive hydrochlorothiazide 25 mg tablet RxNorm: 383259 1 Tablet(s) PO QD 0 12/04/2016 01/03/2017 Inactive Synthroid 50 mcg tablet RxNorm: 798502 1 Tablet(s) PO QD as directe d 11/18/2016 01/13/2017 Inactive Synthroid 75 mcg tablet RxNorm: 567995 1 Tablet(s) PO QD as directe d 11/18/2016 01/10/2017 Inactive Restoril 15 mg capsule RxNorm: 383375 1 Capsule(s) PO QHS as ne eded for sleep 11/16/2016 03/05/2017 Inactive losartan 50 mg tablet RxNorm: 890345 1 Tablet(s) PO BID 10/19/2016 Inactive prednisone 20 mg tablet RxNorm: 626339 1 Tablet(s) PO QD 10/08/2016 0 10/07/2016 Inactive clindamycin 300 mg capsule RxNorm: 613239 1 Capsule(s) PO TID 10/0810/17/2016 Inactive prednisone 20 mg tablet RxNorm: 094555 1 Tablet(s) PO QD 10/08/2016 0 10/12/2016 Inactive clindamycin 300 mg capsule RxNorm: 261493 1 Capsule(s) PO TID 10/0810/07/2016 Inactive cephalexin 500 mg capsule RxNorm: 192545 1 Capsule(s) PO TID 201610/07/2016 Inactive levothyroxine 75 mcg tablet RxNorm: 771766 TAKE 1 TABLET BY TONE EVERY DAY 10/02/2016 10/04/2016 Inactive levothyroxine 75 mcg tablet RxNorm: 542628 1 Tablet(s) PO QD 201610/04/2016 Inactive Restoril 15 mg capsule RxNorm: 125582 1 Capsule(s) PO QHS 08/23/2016 11/15/2016 Inactive levothyroxine 75 mcg tablet RxNorm: 074551 1 Tablet(s) PO QD 201608/19/2016 Inactive levothyroxine 75 mcg tablet RxNorm: 638797 1 Tablet(s) PO QD 201609/09/2016 Inactive levothyroxine 50 mcg capsule RxNorm: 399127 1 Capsule(s) PO QD 06/201608/19/2016 Inactive hydrochlorothiazide 25 mg tablet RxNorm: 722501 1 Tablet(s) PO QD 0 06/23/2016 12/03/2016 Inactive amoxicillin 500 mg tablet RxNorm: 886078 1 Tablet(s) PO TID 016 06/03/2016 Inactive doxycycline hyclate 100 mg capsule RxNorm: 1317254 1 Capsule(s) PO BID 06/03/2016 06/12/2016 Inactive doxycycline hyclate 100 mg capsule RxNorm: 0068510 1 Capsule(s) PO BID 06/03/2016 06/02/2016 Inactive levothyroxine 75 mcg tablet RxNorm: 563021 1 Tablet(s) PO QD 201505/19/2016 Inactive losartan 50 mg tablet RxNorm: 048306 1 TABLET(S) PO BID 04/07/2016 Inactive metoprolol succinate ER 50 mg tablet,extended release 24 hr RxNorm: 375096 1 TABLET(S) PO QHS AND 1/2 TAB IN THE AM--REPLACES 25MG DOSE 04/03/2016 07/27/2016 Inactive Restoril 15 mg capsule RxNorm: 846507 1 Capsule(s) PO QHS as ne eded for sleep 02/24/2016 05/23/2016 Inactive hydrochlorothiazide 12.5 mg tablet RxNorm: 253894 1 Tab let(s) PO QD replaces 25mg dose 01/13/2016 06/22/2016 Inactive metoprolol succinate ER 50 mg tablet,extended release 24 hr RxNorm: 271175 1 Tablet(s) PO QHS and 1/2 tab in the AM--replaces 25mg dose 10/17/2015 04/02/2016 Inactive amlodipine 2.5 mg tablet RxNorm: 644319 1 Tablet(s) PO QHS 10/08/19 16 10/07/2015 Inactive amlodipine 2.5 mg tablet RxNorm: 415194 1 Tablet(s) PO QHS 10/08/19 16 10/16/2015 Inactive losartan 50 mg tablet RxNorm: 815940 1 TABLET(S) PO BID 09/23/2015 Inactive Medrol (Topher) 4 mg tablets in a dose pack RxNorm: 419109 Take as directed 09/03/2015 10/07/2015 Inactive Lasix 40 mg tablet RxNorm: 630386 1 TABLET(S) PO QD PRN FOR SWELLIN G 08/27/2015 12/04/2015 Inactive Lasix 40 mg tablet RxNorm: 604598 1 Tablet(s) PO QD prn for swellin g 08/01/2015 08/26/2015 Inactive losartan 50 mg tablet RxNorm: 180893 1 Tablet(s) PO BID 06/27/2015 Inactive Zyrtec 10 mg tablet RxNorm: 0053513 1 Tablet(s) PO QD 12/05/2015 Active magnesium oxide 400 mg (241.3 mg magnesium) tablet RxNorm: 60226 1 oral 05/25/2022 Active levothyroxine 50 mcg capsule RxNorm: 343439 1 Capsule(s) PO QD 06/201607/07/2016 Inactive sotalol 80 mg tablet RxNorm: 6221921 1/2 Tablet(s) PO BID 09/05/2018 09/04/2018 Inactive melatonin 1 mg tablet RxNorm: 594218 1 Tablet(s) PO QHS as need ed for sleep 12/05/2015 12/04/2015 Inactive levothyroxine 75 mcg tablet RxNorm: 970377 1 Tablet(s) PO 6 day s a week 07/08/2016 07/07/2016 Inactive Vitamin D3 1,000 unit tablet RxNorm: 524557 1 Tablet(s) PO QD 12/0412/04/2015 Inactive sotalol 80 mg tablet RxNorm: 7093113 1 Tablet(s) PO BID 08/30/2017 Inactive Synthroid 75 mcg tablet RxNorm: 811676 2 Tablet(s) PO M, W, F 09/1509/14/2018 Inactive tizanidine 2 mg tablet RxNorm: 765330 1 Tablet(s) PO QHS for spasm 12/17/2016 12/16/2016 Inactive Nasacort AQ 55 mcg nasal spray aerosol RxNorm: 1610025 [place] ANNELIESE AL as needed 12/12/2018 12/11/2018 Inactive fluocinonide 0.05 % topical gel RxNorm: 560842 TOP as needed on gum s 07/28/2016 07/27/2016 Inactive Flonase Allergy Relief 50 mcg/actuation nasal spray,suspensi on RxNorm: 2462600 2 [place] NASAL QHS 10/13/2018 10/12/2018 Inactive Synthroid 50 mcg tablet RxNorm: 901753 1 Tablet(s) PO Tu, Thur, Sat, Sun 09/20/2018 09/19/2018 Inactive Osteo Bi-Flex (5-Loxin) 1,500 mg-400 unit-100 mg tablet RxNo rm: 1 Tablet(s) PO QD 12/05/2015 12/04/2015 Inactive hydrochlorothiazide 25 mg tablet RxNorm: 141404 1/2 Tablet(s) PO QA M 01/13/2016 01/12/2016 Inactive metoprolol succinate ER 25 mg tablet,extended release 24 hr RxNorm: 026013 1 Tablet(s) PO QD 10/17/2015 10/16/2015 Inactive promethazine-DM 6.25 mg-15 mg/5 mL oral syrup RxNorm: 044143 5 PO Q6H as needed for cough 09/30/2018 09/29/2018 Inactive Synthroid 50 mcg tablet RxNorm: 334575 1 Tablet(s) PO QD 10/05/2018 0 10/04/2018 Inactive mupirocin 2 % topical ointment RxNorm: 975205 1 Applica tion TOP BID to affected area as needed 05/03/2018 05/02/2018 Inactive hydrochlorothiazide 25 mg tablet RxNorm: 404772 1 Tablet(s) PO QOD 01/13/2016 01/12/2016 Inactive Vitamin D3 1000 units Capsule RxNorm: 1 Capsule(s) PO QD 9 12/11/2018 Inactive levothyroxine 75 mcg tablet RxNorm: 405517 1 Tablet(s) PO QD 201505/07/2016 Inactive potassium chloride ER 10 mEq capsule,extended release RxNorm : 638783 1 Capsule(s) PO QD 12/05/2015 12/04/2015 Inactive aspirin 81 mg tablet RxNorm: 079146 1 Tablet(s) PO QHS 01/22/2020 Inactive Claritin 10 mg tablet RxNorm: 094283 1 Tablet(s) PO QD 12/05/2015 Inactive Vitamin B12 1000mcg Tablet RxNorm: 1/2 Tablet(s) PO QD 12/12/2018 12/11/2018 Inactive temazepam 15 mg capsule RxNorm: 661701 1 Capsule(s) PO QHS 03/15/20 18 03/14/2018 Inactive hydrochlorothiazide 25 mg tablet RxNorm: 033536 1 Tablet(s) PO QAM 12/05/2015 12/04/2015 Inactive sotalol 80 mg tablet RxNorm: 2369339 1/2 Tablet(s) PO QD 09/22/2018 0 09/21/2018 Inactive mupirocin 2 % topical ointment RxNorm: 458027 TOP as needed 017 08/24/2016 Inactive hydrochlorothiazide 25 mg tablet RxNorm: 198106 1/2 Tablet(s) PO QA M 05/25/2017 05/24/2017 Inactive amlodipine 10 mg tablet RxNorm: 089251 1 Tablet(s) PO QD 02/16/2019 0 02/15/2019 Inactive Citracal + D Slow Release 600 mg calcium-500 unit tablet,ext .release RxNorm: 2 Tablet(s) PO QD 02/16/2019 02/15/2019 Inactive triamcinolone acetonide 0.1 % topical cream RxNorm: 0405751 TOP as needed 12/12/2018 12/11/2018 Inactive Restoril 15 mg capsule RxNorm: 169289 1 Capsule(s) PO QHS 02/24/2016 02/23/2016 Inactive hydrochlorothiazide 25 mg tablet RxNorm: 233580 1/2 Tablet(s) PO QO D 01/13/2016 01/12/2016 Inactive promethazine 6.25 mg/5 mL oral syrup RxNorm: 062980 5 M illiliter(s) PO Q6H as needed for cough 09/30/2018 09/29/2018 Inactive Centrum Silver Women 8 mg iron-400 mcg-300 mcg tablet RxNorm : 1 Tablet(s) PO QD 08/30/2017 08/29/2017 Inactive losartan 50 mg tablet RxNorm: 951685 1 Tablet(s) PO QHS 01/04/2017 Inactive levothyroxine 75 mcg tablet RxNorm: 965713 1 Tablet(s) PO 6 day s a week 10/05/2016 10/04/2016 Inactive losartan 50 mg tablet RxNorm: 488019 2 Tablet(s) PO QD 06/27/2015 Inactive Culturelle 10 billion cell capsule RxNorm: 215631 1-2 Capsule(s ) PO QD 05/10/2019 05/09/2019 Inactive Culturelle 10 billion cell capsule RxNorm: 030245 1 Capsule(s) PO Q D 08/30/2017 08/29/2017 Inactive Synthroid 75 mcg tablet RxNorm: 929933 1 Tablet(s) PO MWF 01/18/2017 01/17/2017 Inactive [...] Code Item Item Code Result Date S vice Location COMPLETE BLOOD COUNT [id number] WBC 6.5 10e9/L 09/27/19 19 Unknown COMPLETE BLOOD COUNT [id number] RBC 4.22 10e12/L 2018 Unknown COMPLETE BLOOD COUNT [id number] HEMOGLOBIN 13.3 g/dL 09/27/19 19 Unknown COMPLETE BLOOD COUNT [id number] HEMATOCRIT 38.7 % 09/27/19 19 Unknown COMPLETE BLOOD COUNT [id number] MCV 91.7 fL 9 Unknown COMPLETE BLOOD COUNT [id number] MCH 31.5 pg 9 Unknown COMPLETE BLOOD COUNT [id number] MCHC 34.4 g/dL 9 Unknown COMPLETE BLOOD COUNT [id number] PLATELET COUNT 326 10e9/L Unknown COMPLETE BLOOD COUNT [id number] Mean Plt Volume 8.9 fL Unknown COMPLETE BLOOD COUNT 2530505 Neut Auto 69.0 % 9 Unknown COMPLETE BLOOD COUNT 0304563 Lymph Auto 16.5 % 09/27/19 19 Unknown COMPLETE BLOOD COUNT 3556049 [place] Auto 8.3 % 9 Unknown COMPLETE BLOOD COUNT 7106751 RDW 12.2 % 9 Unknown COMPLETE BLOOD COUNT 2154602 Eos Auto 5.9 % 9 Unknown COMPLETE BLOOD COUNT 7344367 Baso Auto 0.3 % 9 Unknown COMPLETE BLOOD COUNT [id number] Neutrophil Abs 4.48 10e9/L Unknown COMPLETE BLOOD COUNT 4102409 Lymphocyte Abs 1.07 10e9/L Unknown COMPLETE BLOOD COUNT [id number] Monocyte Abs 0.54 10e9/L 09/06 Unknown COMPLETE BLOOD COUNT [id number] Eosinophil Abs 0.38 10e9/L Unknown COMPLETE BLOOD COUNT [id number] RDW-SD 39.8 fL 9 Unknown COMPLETE BLOOD COUNT [id number] Basophil Abs 0.02 10e9/L 09/06 Unknown GFR CALC 6623344 GFR Non Afr Amr >60 mL/min 12/12/2015 Un known GFR CALC [id number] GFR Afr Amr >60 mL/min 12/12/2015 [place] [address] Glucose 100 mg/dL 12/11 [place] [address] CREATININE 0.78 mg/dL 12/2015 [place] [address] BUN 14 mg/dL 12/11 [place] [address] SODIUM 132 mmol/L 12/2015 [place] [address] POTASSIUM 3.6 mmol/L 12/2015 [place] [address] CHLORIDE 97 mmol/L 12/11 [place] [address] Bicarbonate 28 mmol/L 12/2015 [place] [address] AGAP 7 mmol/L 12/11 [place] [address] CALCIUM 9.3 mg/dL 12/11 [place] [address] Glucose 92 mg/dL 12/04 [place] [address] CREATININE 0.76 mg/dL [place] [address] BUN 8 mg/dL 12/04 [place] [address] SODIUM 133 mmol/L 11/07 [place] [address] POTASSIUM 4.1 mmol/L 11/07 [place] [address] CHLORIDE 97 mmol/L 12/04 [place] [address] Bicarbonate 27 mmol/L [place] [address] AGAP 9 mmol/L 12/04 [place] [address] CALCIUM 9.8 mg/dL 12/04 Unknown GFR CALC [id number] GFR Afr Amr >60 mL/min 12/05/2015 Unknow n COMPREHENSIVE METABOLIC 11950 AST 36 U/L 2015 Unknown COMPREHENSIVE METABOLIC 04985 ALT 41 U/L 2015 Unknown COMPREHENSIVE METABOLIC 78382 BUN 11 mg/dL 2015 Unknown COMPREHENSIVE METABOLIC 02354 ALBUMIN 4.2 g/dL 2015 Unknown COMPREHENSIVE METABOLIC 07342 CHLORIDE 93 mmol/L 2015 Unknown COMPREHENSIVE METABOLIC 11834 Bili Total 1.0 mg/dL 11/24 Unknown COMPREHENSIVE METABOLIC 00863 ALK PHOS 79 U/L 2015 Unknown COMPREHENSIVE METABOLIC 61118 SODIUM 128 mmol/L 11/24 Unknown COMPREHENSIVE METABOLIC 18441 CREATININE 0.65 mg/dL 11/06 Unknown COMPREHENSIVE METABOLIC 93196 CALCIUM 9.4 mg/dL 2015 Unknown COMPREHENSIVE METABOLIC 47448 POTASSIUM 3.7 mmol/L 11/24 Unknown COMPREHENSIVE METABOLIC 75655 Total Protein 6.9 g/dL Unknown COMPREHENSIVE METABOLIC 10993 Glucose 101 mg/dL 2015 Unknown COMPREHENSIVE METABOLIC 77412 Bicarbonate 27 mmol/L 11/06 Unknown COMPREHENSIVE METABOLIC 12862 AGAP 8 mmol/L 2015 Unknown THYROID STIMULATING HORMONE 39254 TSH 2.983 uIU/mL 11/25/2015 Unknown COMPLETE BLOOD COUNT [id number] WBC 9.0 10e9/L 11/25/19 16 Unknown COMPLETE BLOOD COUNT [id number] RBC 3.98 10e12/L 2015 Unknown COMPLETE BLOOD COUNT [id number] HEMOGLOBIN 12.8 g/dL 11/25/19 16 Unknown COMPLETE BLOOD COUNT [id number] HEMATOCRIT 36.1 % 11/25/19 16 Unknown COMPLETE BLOOD COUNT 3086466 MCV 90.7 fL 6 Unknown COMPLETE BLOOD COUNT 7497639 MCH 32.2 pg 6 Unknown COMPLETE BLOOD COUNT 8006478 MCHC 35.5 g/dL 6 Unknown COMPLETE BLOOD COUNT 1843066 PLATELET COUNT 291 10e9/L Unknown COMPLETE BLOOD COUNT 0511505 Mean Plt Volume 8.8 fL Unknown COMPLETE BLOOD COUNT 3968867 Neut Auto 72.2 % 6 Unknown COMPLETE BLOOD COUNT 8643842 Lymph Auto 19.4 % 11/25/19 16 Unknown COMPLETE BLOOD COUNT 4839356 [place] Auto 7.4 % 6 Unknown COMPLETE BLOOD COUNT 6597474 Eos Auto 0.7 % 6 Unknown COMPLETE BLOOD COUNT 8402157 RDW 11.8 % 6 Unknown COMPLETE BLOOD COUNT 3557393 Baso Auto 0.3 % 6 Unknown COMPLETE BLOOD COUNT [id number] Neutrophil Abs 6.50 10e9/L Unknown COMPLETE BLOOD COUNT 3901579 Lymphoctye Abs 1.75 10e9/L Unknown COMPLETE BLOOD COUNT [id number] Monocyte Abs 0.67 10e9/L 11/06 Unknown COMPLETE BLOOD COUNT 2805014 Eosinophil Abs 0.06 10e9/L Unknown COMPLETE BLOOD COUNT 1695456 RDW-SD 38.1 fL 6 Unknown COMPLETE BLOOD COUNT [id number] Basophil Abs 0.03 10e9/L 11/06 Unknown GFR CALC [id number] GFR Non Afr Amr >60 mL/min 11/25/2015 Un known GFR CALC 9698520 GFR Afr Amr >60 mL/min 11/25/2015 Unknow n Procedures Procedure Codes Date SARSCOV CORONAVIRUS AG [place] CPT-4: 51686 01/27/2022 CEFTRIAXONE SODIUM INJECTION CPT-4: J0696 01/27/2022 THER/PROPH/DIAG INJ SC/IM CPT-4: 90153 01/27/2022 URINALYSIS NONAUTO W/O SCOPE CPT-4: 10754 05/12/2021 RML URINE CULTURE/ COLONY COUNT CPT-4: 40313 05/12/20 21 FLU VACC PRSV FREE INC ANTIG 65 AND OLDER CPT-4: 37886 02/27/2021 ADMIN INFLUENZA VIRUS VAC CPT-4: G0008 02/27/2021 FLU VACC PRSV FREE INC ANTIG 65 AND OLDER CPT-4: 71883 02/27/2021 RML URINE CULTURE/ COLONY COUNT CPT-4: 45978 11/12/19 21 URINALYSIS NONAUTO W/O SCOPE CPT-4: 41737 11/11/2020 DESTRUCT PREMALG LESION (Cryosurgery) CPT-4: 42489 RML URINE CULTURE/ COLONY COUNT CPT-4: 91826 02/20/20 20 URINALYSIS NONAUTO W/O SCOPE CPT-4: 79172 02/13/2020 RML URINE CULTURE/ COLONY COUNT CPT-4: 89497 02/13/20 20 CEFTRIAXONE SODIUM INJECTION CPT-4: J0696 02/13/2020 THER/PROPH/DIAG INJ SC/IM CPT-4: 32351 02/13/2020 URINALYSIS NONAUTO W/O SCOPE CPT-4: 14047 11/09/2019 RML URINE CULTURE/ COLONY COUNT CPT-4: 80227 11/09/19 20 CEFTRIAXONE SODIUM INJECTION CPT-4: J0696 05/18/2019 THER/PROPH/DIAG INJ SC/IM CPT-4: 72022 05/18/2019 CEFTRIAXONE SODIUM INJECTION CPT-4: J0696 05/17/2019 THER/PROPH/DIAG INJ SC/IM CPT-4: 42150 05/17/2019 RML URINE CULTURE/ COLONY COUNT CPT-4: 41280 05/08/20 19 THROAT CULTURE CPT-4: 47063 05/08/2019 URINALYSIS NONAUTO W/O SCOPE CPT-4: 73446 04/21/2019 RML URINE CULTURE/ COLONY COUNT CPT-4: 83955 04/21/20 19 CEFTRIAXONE SODIUM INJECTION CPT-4: J0696 04/21/2019 THER/PROPH/DIAG INJ SC/IM CPT-4: 66428 04/21/2019 FLU VACC PRSV FREE INC ANTIG 65 AND OLDER CPT-4: 92795 03/02/2019 FLU VACC PRSV FREE INC ANTIG 65 AND OLDER CPT-4: 65405 03/02/2019 ADMIN INFLUENZA VIRUS VAC CPT-4: G0008 03/02/2019 URINALYSIS NONAUTO W/O SCOPE CPT-4: 51311 02/16/2019 Removal impacted cerumen using irrigation/lavage, unilateral CPT-4: 87560 12/14/2018 UA W/MICR CPT-4: 04078 10/05/2018 ROUTINE VENIPUNCTURE CPT-4: 70899 09/26/2018 RML COMPLETE CBC W/AUTO DIFF WBC CPT-4: 32161 019 CEFTRIAXONE SODIUM INJECTION CPT-4: J0696 09/22/2018 THER/PROPH/DIAG INJ SC/IM CPT-4: 13832 09/22/2018 INFLUENZA ASSAY W/OPTIC CPT-4: 97272 09/22/2018 URINALYSIS NONAUTO W/O SCOPE CPT-4: 52635 09/20/2018 CEFTRIAXONE SODIUM INJECTION CPT-4: J0696 09/20/2018 THER/PROPH/DIAG INJ SC/IM CPT-4: 84113 09/20/2018 RML URINE CULTURE/ COLONY COUNT CPT-4: 68791 09/21/19 19 RML URINE CULTURE/ COLONY COUNT CPT-4: 24972 09/15/19 19 URINALYSIS NONAUTO W/O SCOPE CPT-4: 04806 09/05/2018 RML URINE CULTURE/ COLONY COUNT CPT-4: 46656 09/06/19 19 URINALYSIS NONAUTO W/O SCOPE CPT-4: 20718 04/20/2018 RML URINE CULTURE/ COLONY COUNT CPT-4: 55454 04/20/20 18 CERUM REMOVAL CPT-4: 71150 03/18/2018 FLU VACC PRSV FREE INC ANTIG 65 AND OLDER CPT-4: 87092 03/03/2018 ADMIN INFLUENZA VIRUS VAC CPT-4: G0008 03/03/2018 PRESCRIP TRANSMIT VIA ERX SY CPT-4: G8553 05/25/2017 FLU VACC PRSV FREE INC ANTIG 65 AND OLDER CPT-4: 56009 03/08/2017 ADMIN INFLUENZA VIRUS VAC CPT-4: G0008 03/08/2017 PRESCRIP TRANSMIT VIA ERX SY CPT-4: G8553 01/18/2017 PRESCRIP TRANSMIT VIA ERX SY CPT-4: G8553 11/18/2016 RML URINE CULTURE/ COLONY COUNT CPT-4: 17002 10/27/19 17 URINALYSIS NONAUTO W/O SCOPE CPT-4: 05218 10/26/2016 PRESCRIP TRANSMIT VIA ERX SY CPT-4: G8553 10/08/2016 PRESCRIP TRANSMIT VIA ERX SY CPT-4: G8553 10/05/2016 PRESCRIP TRANSMIT VIA ERX SY CPT-4: G8553 06/23/2016 PRESCRIP TRANSMIT VIA ERX SY CPT-4: G8553 06/03/2016 INFLUENZA ASSAY W/OPTIC CPT-4: 40733 05/26/2016 FLU VACC PRSV FREE INC ANTIG 65 AND OLDER CPT-4: 35721 03/19/2016 ADMIN INFLUENZA VIRUS VAC CPT-4: G0008 03/19/2016 PNEUMOCOCCAL VACC 13 CARLIE IM CPT-4: 55803 01/13/2016 ADMIN PNEUMOCOCCAL VACCINE CPT-4: G0009 01/13/2016 PRESCRIP TRANSMIT VIA ERX SY CPT-4: G8553 01/13/2016 URINALYSIS NONAUTO W/O SCOPE CPT-4: 49504 11/27/2015 RML URINE CULTURE/ COLONY COUNT CPT-4: 24644 11/27/19 16 PRESCRIP TRANSMIT VIA ERX SY [...] 97.9 (F) We ight: 141 lbs Code: 24014-8 08/25/2022 Blood Pressure 1: 124/78 Code: 8480-6 Heart Rate 1: 75 bpm Respiratory Rate: 20 bpm SpO2: 98% Temperature: 36.4 (C) / 97.5 (F) We ight: 134 lbs Code: 58836-6 08/11/2022 Blood Pressure 1: 136/74 Code: 8480-6 Heart Rate 1: 69 bpm Respiratory Rate: 18 bpm SpO2: 97% Temperature: 36.7 (C) / 98.0 (F) We ight: 134 lbs Code: 28049-7 07/28/2022 Blood Pressure 1: 126/74 Code: 8480-6 Heart Rate 1: 74 bpm Respiratory Rate: 20 bpm SpO2: 97% Temperature: 36.4 (C) / 97.5 (F) We ight: 135 lbs Code: 64663-0 07/14/2022 Blood Pressure 1: 130/76 Code: 8480-6 Heart Rate 1: 51 bpm SpO2: 100% Temperature: 36.3 (C) / 97.3 (F) Weight: 130 lbs Code : 22943-0 06/23/2022 Blood Pressure 1: 140/80 Code: 8480-6 Heart Rate 1: 58 bpm Respiratory Rate: 20 bpm SpO2: 98% Temperature: 36.3 (C) / 97.3 (F) We ight: 135 lbs Code: 99941-4 05/25/2022 Blood Pressure 1: 161/82 Code: 8480-6 BMI: 24.3 Code: 58190-5 Heart Rate 1: 72 bpm Height: 5'3" Code: 8302-2 SpO2: 97% Temperature: 3 6.3 (C) / 97.3 (F) Weight: 137 lbs Code: 46474-1 03/19/2022 Blood Pressure 1: 140/82 Code: 8480-6 BMI: 23.2 Code: 71402-1 Heart Rate 1: 56 bpm Height: 5'3" Code: 8302-2 SpO2: 92% Temperature: 3 6.8 (C) / 98.2 (F) Weight: 131 lbs Code: 76024-6 02/16/2022 Blood Pressure 1: 154/82 Code: 8480-6 BMI: 23.6 Code: 19765-5 Heart Rate 1: 64 bpm Height: 5'3" Code: 8302-2 Respiratory Rate: 20 bpm SpO2: 96% Temperature: 36.8 (C) / 98.3 (F) Weight: 133 lbs Code: 53983-5 2022 Blood Pressure 1: 140/74 Code: 8480-6 BMI: 22.5 Code: 74217-0 Heart Rate 1: 54 bpm Height: 5'3" Code: 8302-2 Respiratory Rate: 18 bpm SpO2: 96% Temperature: 36.8 (C) / 98.2 (F) Weight: 127 lbs Code: 30824-8 01/27/2022 Blood Pressure 1: 144/80 Code: 8480-6 Heart Rate 1: 84 bpm Respiratory Rate: 22 bpm SpO2: 96% Temperature: 36.7 (C) / 98.0 (F) We ight: 134 lbs Code: 75160-6 10/28/2021 Blood Pressure 1: 152/82 Code: 8480-6 BMI: 22.8 Code: 49483-6 Heart Rate 1: 68 bpm Height: 5'4" Code: 8302-2 Respiratory Rate: 20 bpm SpO2: 98% Temperature: 36.8 (C) / 98.2 (F) Weight: 133 lbs Code: 04546-4 09/23/2021 Blood Pressure 1: 154/78 Code: 8480-6 Heart Rate 1: 66 bpm Respiratory Rate: 18 bpm SpO2: 97% Temperature: 36.2 (C) / 97.1 (F) We ight: 130 lbs Code: 01466-0 08/21/2021 Blood Pressure 1: 166/78 Code: 8480-6 Heart Rate 1: 76 bpm Respiratory Rate: 20 bpm SpO2: 98% Temperature: 36.5 (C) / 97.7 (F) We ight: 134 lbs Code: 88481-3 07/30/2021 Blood Pressure 1: 146/68 Code: 8480-6 Heart Rate 1: 76 bpm Respiratory Rate: 20 bpm SpO2: 98% Temperature: 36.7 (C) / 98.1 (F) We ight: 135 lbs Code: 53312-0 06/19/2021 Blood Pressure 1: 96/50 Code: 8480-6 Heart Rate 1: 72 bpm Respiratory Rate: 20 bpm SpO2: 97% Temperature: 36.8 (C) / 98.3 (F) Weight: 132 lbs Code: 36816-3 05/08/2021 Blood Pressure 1: 132/74 Code: 8480-6 Heart Rate 1: 72 bpm Respiratory Rate: 20 bpm SpO2: 99% Temperature: 36.8 (C) / 98.2 (F) We ight: 132 lbs Code: 44331-8 04/28/2021 Blood Pressure 1: 132/62 Code: 8480-6 Heart Rate 1: 88 bpm Respiratory Rate: 20 bpm SpO2: 98% Temperature: 36.6 (C) / 97.9 (F) We ight: 141 lbs Code: 75057-5 03/19/2021 Blood Pressure 1: 140/67 Code: 8480-6 Heart Rate 1: 71 bpm Respiratory Rate: 15 bpm SpO2: 99% Temperature: 36.3 (C) / 97.3 (F) We ight: 142 lbs Code: 78588-3 02/06/2021 Blood Pressure 1: 152/74 Code: 8480-6 Heart Rate 1: 80 bpm Respiratory Rate: 20 bpm SpO2: 96% Temperature: 36.7 (C) / 98.0 (F) We ight: 138 lbs Code: 51578-9 12/20/2020 Blood Pressure 1: 112/63 Code: 8480-6 Heart Rate 1: 80 bpm Respiratory Rate: 16 bpm SpO2: 99% Temperature: 36.4 (C) / 97.6 (F) We ight: 136 lbs Code: 65120-3 12/11/2020 Blood Pressure 1: 123/64 Code: 8480-6 BMI: 23.5 Code: 90306-4 Heart Rate 1: 68 bpm Height: 5'4" Code: 8302-2 Respiratory Rate: 15 bpm SpO2: 98% Temperature: 36.2 (C) / 97.2 (F) Weight: 137 lbs Code: 24773-7 11/11/2020 Blood Pressure 1: 154/82 Code: 8480-6 Heart Rate 1: 76 bpm SpO2: 99% Temperature: 36.9 (C) / 98.5 (F) Weight: 136 lbs Code: 18825-1 09/05/2020 Blood Pressure 1: 150/66 Code: 8480-6 Heart Rate 1: 80 bpm Respiratory Rate: 20 bpm SpO2: 99% Temperature: 37.0 (C) / 98.6 (F) We ight: 132 lbs Code: 18591-5 07/29/2020 Blood Pressure 1: 152/72 Code: 8480-6 Heart Rate 1: 84 bpm Respiratory Rate: 20 bpm SpO2: 97% Temperature: 36.8 (C) / 98.2 (F) We ight: 133 lbs Code: 47473-4 06/24/2020 Blood Pressure 1: 112/68 Code: 8480-6 Heart Rate 1: 72 bpm Respiratory Rate: 20 bpm SpO2: 98% Temperature: 36.8 (C) / 98.2 (F) We ight: 130 lbs Code: 26570-4 06/21/2020 Blood Pressure 1: 129/78 Code: 8480-6 He art Rate 1: 81 bpm 02/29/2020 Blood Pressure 1: 136/70 Code: 8480-6 Heart Rate 1: 76 bpm Respiratory Rate: 20 bpm SpO2: 98% Temperature: 36.4 (C) / 97.5 (F) We ight: 130 lbs Code: 69278-8 02/22/2020 Blood Pressure 1: 142/67 Code: 8480-6 Heart Rate 1: 64 bpm Respiratory Rate: 16 bpm SpO2: 98% Temperature: 36.5 (C) / 97.7 (F) We ight: 128 lbs Code: 77278-6 02/13/2020 Blood Pressure 1: 124/80 Code: 8480-6 Heart Rate 1: 61 bpm Respiratory Rate: 15 bpm SpO2: 97% Temperature: 36.2 (C) / 97.1 (F) We ight: Code: 46041-1 2020 Blood Pressure 1: 124/60 Code: 8480-6 Heart Rate 1: 92 bpm Respiratory Rate: 20 bpm SpO2: 97% Temperature: 36.4 (C) / 97.5 (F) We ight: 129 lbs Code: 50489-0 01/22/2020 Blood Pressure 1: 134/54 Code: 8480-6 Heart Rate 1: 72 bpm Respiratory Rate: 20 bpm SpO2: 97% Temperature: 37.1 (C) / 98.7 (F) We ight: 128 lbs Code: 04353-5 12/26/2019 Blood Pressure 1: 124/74 Code: 8480-6 Heart Rate 1: 64 bpm Respiratory Rate: 20 bpm SpO2: 98% Temperature: 37.0 (C) / 98.6 (F) We ight: 126 lbs Code: 63033-7 11/27/2019 Blood Pressure 1: 134/73 Code: 8480-6 Heart Rate 1: 116 bpm Respiratory Rate: 17 bpm SpO2: 97% Temperature: 36.7 (C) / 98.0 (F) We ight: 134 lbs Code: 60551-1 11/09/2019 Blood Pressure 1: 126/68 Code: 8480-6 Heart Rate 1: 92 bpm Respiratory Rate: 20 bpm SpO2: 97% Temperature: 37.2 (C) / 98.9 (F) We ight: 135 lbs Code: 25751-0 10/10/2019 Blood Pressure 1: 117/65 Code: 8480-6 Heart Rate 1: 66 bpm Respiratory Rate: 16 bpm SpO2: 99% Temperature: 36.7 (C) / 98.0 (F) We ight: 130 lbs Code: 77868-1 07/13/2019 Blood Pressure 1: 144/70 Code: 8480-6 BMI: 23.0 Code: 60466-2 Heart Rate 1: 92 bpm Height: 5'4" Code: 8302-2 Respiratory Rate: 20 bpm SpO2: 98% Temperature: 36.8 (C) / 98.2 (F) Weight: 133 lbs Code: 38825-1 05/18/2019 Blood Pressure 1: 122/60 Code: 8480-6 Heart Rate 1: 92 bpm Respiratory Rate: 20 bpm SpO2: 97% Temperature: 37.0 (C) / 98.6 (F) 05/17/2019 Blood Pressure 1: 122/74 Code: 8480-6 Heart Rate 1: 84 bpm Respiratory Rate: 20 bpm SpO2: 98% Temperature: 37.2 (C) / 99.0 (F) We ight: 130 lbs Code: 85944-3 04/24/2019 Blood Pressure 1: 124/64 Code: 8480-6 Heart Rate 1: 93 bpm SpO2: 99% Temperature: 36.8 (C) / 98.3 (F) Weight: 134 lbs Code: 61062-1 04/10/2019 Blood Pressure 1: 128/68 Code: 8480-6 Heart Rate 1: 73 bpm SpO2: 99% Temperature: 37.2 (C) / 98.9 (F) Weight: 134 lbs Code: 32778-4 02/16/2019 Blood Pressure 1: 128/64 Code: 8480-6 Heart Rate 1: 72 bpm Respiratory Rate: 20 bpm SpO2: 97% Temperature: 36.8 (C) / 98.2 (F) We ight: 129 lbs Code: 78921-8 12/20/2018 Blood Pressure 1: 152/70 Code: 8480-6 Heart Rate 1: 87 bpm Respiratory Rate: 20 bpm SpO2: 98% Temperature: 36.9 (C) / 98.5 (F) We ight: 127 lbs Code: 86187-6 12/14/2018 Blood Pressure 1: 122/68 Code: 8480-6 Heart Rate 1: 80 bpm Respiratory Rate: 18 bpm SpO2: 96% Temperature: 36.8 (C) / 98.2 (F) 12/12/2018 Blood Pressure 1: 140/68 Code: 8480-6 Heart Rate 1: 75 bpm Respiratory Rate: 18 bpm SpO2: 97% Temperature: 36.2 (C) / 97.1 (F) We ight: 127 lbs Code: 88564-9 10/19/2018 Blood Pressure 1: 126/64 Code: 8480-6 Heart Rate 1: 88 bpm Respiratory Rate: 20 bpm SpO2: 96% Temperature: 37.1 (C) / 98.8 (F) We ight: 123 lbs Code: 73348-8 10/13/2018 Blood Pressure 1: 132/62 Code: 8480-6 He art Rate 1: 86 bpm 10/05/2018 Blood Pressure 1: 114/58 Code: 8480-6 Heart Rate 1: 72 bpm SpO2: 98% Temperature: 36.9 (C) / 98.5 (F) Weight: 120 lbs Code: 98091-2 09/28/2018 Blood Pressure 1: 126/64 Code: 8480-6 Heart Rate 1: 76 bpm Respiratory Rate: 20 bpm SpO2: 97% Temperature: 37.2 (C) / 98.9 (F) 09/26/2018 Blood Pressure 1: 132/66 Code: 8480-6 Heart Rate 1: 79 bpm Respiratory Rate: 20 bpm SpO2: 97% Temperature: 37.1 (C) / 98.7 (F) We ight: 119 lbs Code: 89639-9 09/23/2018 Blood Pressure 1: 112/64 Code: 8480-6 Heart Rate 1: 85 bpm Respiratory Rate: 20 bpm SpO2: 95% Temperature: 36.9 (C) / 98.5 (F) We ight: 119 lbs 8 oz Code: 40027-1 09/22/2018 Blood Pressure 1: 116/58 Code: 8480-6 Heart Rate 1: 88 bpm Respiratory Rate: 20 bpm SpO2: 96% Temperature: 37.9 (C) / 100. 2 (F) 09/20/2018 Blood Pressure 1: 136/70 Code: 8480-6 Heart Rate 1: 109 bpm Respiratory Rate: 20 bpm SpO2: 98% Temperature: 37.0 (C) / 98.6 (F) We ight: 122 lbs Code: 62279-4 09/15/2018 Blood Pressure 1: 134/62 Code: 8480-6 Heart Rate 1: 68 bpm Respiratory Rate: 20 bpm SpO2: 97% Temperature: 36.8 (C) / 98.2 (F) We ight: 124 lbs Code: 26116-6 09/08/2018 Blood Pressure 1: 132/62 Code: 8480-6 Heart Rate 1: 83 bpm Respiratory Rate: 18 bpm SpO2: 94% Temperature: 36.9 (C) / 98.4 (F) We ight: 123 lbs Code: 61418-0 09/05/2018 Blood Pressure 1: 142/68 Code: 8480-6 Heart Rate 1: 70 bpm Respiratory Rate: 18 bpm SpO2: 98% Temperature: 37.0 (C) / 98.6 (F) We ight: 123 lbs Code: 37425-5 03/18/2018 Blood Pressure 1: 132/62 Code: 8480-6 Heart Rate 1: 71 bpm Respiratory Rate: 18 bpm SpO2: 95% Temperature: 36.7 (C) / 98.1 (F) We ight: 126 lbs Code: 34742-6 03/03/2018 Blood Pressure 1: 148/60 Code: 8480-6 BMI: 22.5 Code: 85726-5 Heart Rate 1: 72 bpm Height: 5'4" Code: 8302-2 Respiratory Rate: 20 bpm SpO2: 96% Temperature: 36.9 (C) / 98.4 (F) Weight: 130 lbs Code: 30743-5 02/16/2018 Blood Pressure 1: 154/70 Code: 8480-6 BMI: 21.8 Code: 60504-3 Heart Rate 1: 72 bpm Height: 5'4" Code: 8302-2 Respiratory Rate: 20 bpm SpO2: 97% Temperature: 36.9 (C) / 98.5 (F) Weight: 126 lbs Code: 20482-6 01/26/2018 Blood Pressure 1: 126/78 Code: 8480-6 BMI: 21.8 Code: 45830-5 Heart Rate 1: 80 bpm Height: 5'4" Code: 8302-2 Respiratory Rate: 20 bpm SpO2: 97% Temperature: 36.6 (C) / 97.8 (F) Weight: 126 lbs Code: 19964-6 11/30/2017 Blood Pressure 1: 168/78 Code: 8480-6 BMI: 22.1 Code: 20223-0 Heart Rate 1: 64 bpm Height: 5'4" Code: 8302-2 Respiratory Rate: 20 bpm SpO2: 96% Temperature: 37.0 (C) / 98.6 (F) Weight: 128 lbs Code: 26989-0 10/20/2017 Blood Pressure 1: 146/70 Code: 8480-6 BMI: 22.1 Code: 69951-9 Heart Rate 1: 72 bpm Height: 5'4" Code: 8302-2 Respiratory Rate: 20 bpm SpO2: 97% Temperature: 36.7 (C) / 98.1 (F) Weight: 128 lbs Code: 54669-4 08/30/2017 Blood Pressure 1: 134/68 Code: 8480-6 BMI: 22.5 Code: 17039-5 Heart Rate 1: 72 bpm Height: 5'4" Code: 8302-2 Respiratory Rate: 20 bpm Temperatu re: 36.9 (C) / 98.4 (F) Weight: 130 lbs Code: 94751-8 05/25/2017 Blood Pressure 1: 144/60 Code: 8480-6 BMI: 22.3 Code: 35546-3 Heart Rate 1: 64 bpm Height: 5'4" Code: 8302-2 Respiratory Rate: 20 bpm SpO2: 95% Temperature: 36.8 (C) / 98.2 (F) Weight: 129 lbs Code: 38028-2 03/22/2017 Blood Pressure 1: 124/70 Code: 8480-6 BMI: 21.4 Code: 13933-3 Heart Rate 1: 64 bpm Height: 5'4" Code: 8302-2 Respiratory Rate: 20 bpm Temperatu re: 36.9 (C) / 98.4 (F) Weight: 124 lbs Code: 83162-8 03/08/2017 Blood Pressure 1: 142/78 Code: 8480-6 He art Rate 1: 64 bpm 01/18/2017 Blood Pressure 1: 136/64 Code: 8480-6 BMI: 21.9 Code: 80498-1 Heart Rate 1: 68 bpm Height: 5'4" Code: 8302-2 Respiratory Rate: 20 bpm SpO2: 96% Temperature: 36.8 (C) / 98.2 (F) Weight: 127 lbs Code: 31591-7 01/11/2017 Blood Pressure 1: 142/60 Code: 8480-6 Heart Rate 1: 60 bpm SpO2: 96% 01/04/2017 Blood Pressure 1: 148/70 Code: 8480-6 He art Rate 1: 68 bpm 12/28/2016 Blood Pressure 1: 132/64 Code: 8480-6 BMI: 21.4 Code: 32727-5 Heart Rate 1: 68 bpm Height: 5'4" Code: 8302-2 SpO2: 98% Weight: 124 lb s Code: 15765-2 12/24/2016 Blood Pressure 1: 138/62 Code: 8480-6 He art Rate 1: 74 bpm 12/16/2016 Blood Pressure 1: 124/64 Code: 8480-6 BMI: 21.4 Code: 88414-9 Heart Rate 1: 66 bpm Height: 5'4" Code: 8302-2 Respiratory Rate: 20 bpm SpO2: 97% Temperature: 36.8 (C) / 98.2 (F) Weight: 124 lbs Code: 09734-6 11/18/2016 Blood Pressure 1: 156/64 Code: 8480-6 BMI: 22.3 Code: 33000-9 Heart Rate 1: 64 bpm Height: 5'4" Code: 8302-2 Respiratory Rate: 20 bpm SpO2: 98% Temperature: 36.6 (C) / 97.8 (F) Weight: 129 lbs Code: 40355-3 11/04/2016 Blood Pressure 1: 112/48 Code: 8480-6 BMI: 21.6 Code: 18577-8 Heart Rate 1: 70 bpm Height: 5'4" Code: 8302-2 Respiratory Rate: 22 bpm SpO2: 98% Temperature: 36.4 (C) / 97.6 (F) Weight: 125 lbs Code: 69329-0 10/27/2016 Blood Pressure 1: 118/54 Code: 8480-6 BMI: 21.8 Code: 78633-7 Heart Rate 1: 64 bpm Height: 5'4" Code: 8302-2 Respiratory Rate: 20 bpm SpO2: 97% Temperature: 36.9 (C) / 98.4 (F) Weight: 126 lbs Code: 67637-6 10/13/2016 Blood Pressure 1: 138/82 Code: 8480-6 Heart Rate 1: 66 bpm Height: Code: 8302-2 Respiratory Rate: 20 bpm SpO2: 97% Temperature: 36 .6 (C) / 97.9 (F) Weight: Code: 59013-2 10/08/2016 Blood Pressure 1: 124/56 Code: 8480-6 BMI: 22.8 Code: 33239-5 Heart Rate 1: 76 bpm Height: 5'4" Code: 8302-2 Respiratory Rate: 20 bpm SpO2: 96% Temperature: 36.8 (C) / 98.3 (F) Weight: 132 lbs Code: 96508-2 10/05/2016 Blood Pressure 1: 126/58 Code: 8480-6 BMI: 22.6 Code: 05342-3 Heart Rate 1: 60 bpm Height: 5'4" Code: 8302-2 Respiratory Rate: 20 bpm Temperatu re: 36.7 (C) / 98.1 (F) Weight: 131 lbs Code: 93237-5 08/25/2016 Blood Pressure 1: 130/64 Code: 8480-6 Heart Rate 1: 60 bpm Respiratory Rate: 20 bpm SpO2: 96% Temperature: 37.0 (C) / 98.6 (F) We ight: 136 lbs Code: 14732-3 07/28/2016 Blood Pressure 1: 104/78 Code: 8480-6 BMI: 23.5 Code: 80361-1 Heart Rate 1: 82 bpm Height: 5'4" Code: 8302-2 Respiratory Rate: 24 bpm SpO2: 98% Temperature: 36.8 (C) / 98.2 (F) Weight: 136 lbs Code: 35482-7 06/25/2016 Blood Pressure 1: 152/66 Code: 8480-6 He art Rate 1: 60 bpm 06/23/2016 Blood Pressure 1: 198/102 Code: 8480-6 Heart Rat e 1: 62 bpm Respiratory Rate: 20 bpm SpO2: 95% Temperature: 36.6 (C) / 97.9 (F) We ight: 137 lbs Code: 72618-2 06/03/2016 Blood Pressure 1: 154/86 Code: 8480-6 BMI: 23.4 Code: 29239-7 Heart Rate 1: 56 bpm Height: 5'6" Code: 8302-2 Respiratory Rate: 20 bpm SpO2: 96% Temperature: 36.7 (C) / 98.1 (F) Weight: 143 lbs Code: 38230-3 05/26/2016 Blood Pressure 1: 124/68 Code: 8480-6 BMI: 23.6 Code: 70261-1 Heart Rate 1: 76 bpm Height: 5'6" Code: 8302-2 Respiratory Rate: 20 bpm SpO2: 96% Temperature: 36.2 (C) / 97.2 (F) Weight: 144 lbs Code: 92065-9 05/20/2016 Blood Pressure 1: 156/58 Code: 8480-6 BMI: 24.5 Code: 90982-0 Heart Rate 1: 64 bpm Height: 5'4" Code: 8302-2 Respiratory Rate: 20 bpm Temperatu re: 36.9 (C) / 98.4 (F) Weight: 142 lbs Code: 92218-4 03/19/2016 Blood Pressure 1: 144/74 Code: 8480-6 BMI: 25.9 Code: 10236-9 Heart Rate 1: 76 bpm Height: 5'4" Code: 8302-2 Respiratory Rate: 20 bpm Temperatu re: 36.8 (C) / 98.2 (F) Weight: 150 lbs Code: 10146-2 01/13/2016 Blood Pressure 1: 152/72 Code: 8480-6 BMI: 26.8 Code: 58625-1 Heart Rate 1: 64 bpm Height: 5'4" Code: 8302-2 Respiratory Rate: 20 bpm Temperatu re: 36.7 (C) / 98.1 (F) Weight: 155 lbs Code: 78953-7 12/12/2015 Blood Pressure 1: 128/68 Code: 8480-6 BMI: 26.3 Code: 92568-0 Heart Rate 1: 64 bpm Height: 5'4" Code: 8302-2 Respiratory Rate: 20 bpm Temperatu re: 36.8 (C) / 98.3 (F) Weight: 152 lbs Code: 97829-5 12/05/2015 Blood Pressure 1: 174/88 Code: 8480-6 BMI: 26.8 Code: 19648-2 Heart Rate 1: 68 bpm Height: 5'4" Code: 8302-2 Respiratory Rate: 20 bpm Temperatu re: 36.8 (C) / 98.2 (F) Weight: 155 lbs Code: 31438-3 11/27/2015 Blood Pressure 1: 188/82 Code: 8480-6 He art Rate 1: 70 bpm 10/21/2015 Blood Pressure 1: 148/80 Code: 8480-6 BMI: 27.5 Code: 32576-1 Heart Rate 1: 64 bpm Height: 5'4" Code: 8302-2 Respiratory Rate: 20 bpm Temperatu re: 36.7 (C) / 98.1 (F) Weight: 159 lbs Code: 53767-3 10/17/2015 Blood Pressure 1: 140/74 Code: 8480-6 BMI: 27.5 Code: 34594-9 Heart Rate 1: 80 bpm Height: 5'4" Code: 8302-2 Respiratory Rate: 20 bpm Temperatu re: 36.8 (C) / 98.2 (F) Weight: 159 lbs Code: 19064-9 10/07/2015 Blood Pressure 1: 174/80 Code: 8480-6 BMI: 27.5 Code: 02879-0 Heart Rate 1: 82 bpm Height: 5'4" Code: 8302-2 Respiratory Rate: 20 bpm SpO2: 97% Temperature: 36.7 (C) / 98.0 (F) Weight: 159 lbs Code: 04755-8 09/03/2015 Blood Pressure 1: 146/68 Code: 8480-6 BMI: 27.3 Code: 57126-9 Heart Rate 1: 82 bpm Height: 5'4" Code: 8302-2 Respiratory Rate: 20 bpm SpO2: 97% Temperature: 36.6 (C) / 97.9 (F) Weight: 158 lbs Code: 53188-6 08/01/2015 Blood Pressure 1: 144/78 Code: 8480-6 BMI: 26.9 Code: 23736-1 Heart Rate 1: 64 bpm Height: 5'3" Code: 8302-2 Respiratory Rate: 20 bpm Temperatu re: 36.6 (C) / 97.9 (F) Weight: 154 lbs Code: 43329-3 06/27/2015 Blood Pressure 1: 152/76 Code: 8480-6 BMI: 26.7 Code: 54164-9 Heart Rate 1: 80 bpm Height: 5'3" Code: 8302-2 Respiratory Rate: 20 bpm Temperatu re: 36.7 (C) / 98.1 (F) Weight: 153 lbs Code: 94691-1 Functional Status No Functional Status data Reason [...] high blood pressure 12/12/2015 follow up 12/05/2015 Hospital fwup high blood pressure 12/05/2015 arrhythmia 12/05/2015 [...] Encounter Performer Location Location Address Codes Date ([id number]) OFFICE/OUTPATIENT VISIT EST Diagnosis: Insomnia[ICD10: G47.00] Diagnosis: Other malaise and fatigue[ICD10: R53.81] Diagnosis: 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] Cony POOLE [facility] [address] [place] [address] CPT- 4: 57519 10/01/2022 ([id number]) OFFICE/OUTPATIENT VISIT EST Diagnosis: Cervicalgia[ICD10: M54.2] Diagnosis: Labile hypertension[ICD10: R09.89] Diagnosis: Paroxysmal atrial fibrillation[ICD10: I48.0] Diagnosis: Hypothyroidism, unspecified[ICD10: E03.9] Cony POOLE [address] [address] CPT- 4: 72724 08/25/2022 ([id number]) OFFICE/OUTPATIENT VISIT EST Diagnosis: Dyspnea on exertion[ICD10: R06.09] Diagnosis: Chronic atrial fibrillation[ICD10: I48.20] Diagnosis: Essential hypertension[ICD10: I10] Diagnosis: COPD (chronic obstructive pulmonary disease)[ICD10: J44.9] Cony POOLE [address] [address] CPT-4: 10568 08/11/2022 ([id number]) OFFICE/OUTPATIENT VISIT EST Diagnosis: Essential (primary) hypertension[ICD10: I10] Diagnosis: Edema[ICD10: R60.9] Diagnosis: Bradycardia[ICD10: R00.1] Diagnosis: Atrial fibrillation[ICD10: I48.91] Cony POOLE [address] [address] CPT-4: 61160 07/28/2022 ([id number]) OFFICE/OUTPATIENT VISIT EST Diagnosis: URI (upper respiratory infection)[ICD10: J06.9] Diagnosis: Chronic airway obstruction, not elsewhere classified[ICD10: J44.9] Cony POOLE DO [address] [address] CPT-4: 23565 07/14/2022 ([id number]) OFFICE/OUTPATIENT VISIT EST Diagnosis: Atrial fibrillation[ICD10: I48.91] Diagnosis: Essential (primary) hypertension[ICD10: I10] Diagnosis: Hypothyroidism[ICD10: E03.9] Cony POOLE [address] [address] CPT-4: 40394 06/23/2022 ([id number]) OFFICE/OUTPATIENT VISIT EST Diagnosis: Essential (primary) hypertension[ICD10: I10] Diagnosis: Chronic atrial fibrillation[ICD10: I48.20] Diagnosis: Chronic airway obstruction, not elsewhere classified[ICD10: J44.9] Diagnosis: Hypothyroidism[ICD10: E03.9] Cony POOLE DO [address] [address] CPT-4: 97720 05/25/2022 ([id number]) OFFICE/OUTPATIENT VISIT EST Diagnosis: COPD (chronic obstructive pulmonary disease)[ICD10: J44.9] Diagnosis: Essential hypertension[ICD10: I10] Diagnosis: Hypothyroidism[ICD10: E03.9] Diagnosis: Allergic rhinitis[ICD10: J30.9] Diagnosis: Unsteady gait[ICD10: R26.81] Cony POOLE [address] [address] CPT-4: 29415 03/19/2022 ([id number]) OFFICE/OUTPATIENT VISIT EST Diagnosis: COPD exacerbation[ICD10: J44.1] Diagnosis: COPD (chronic obstructive pulmonary disease)[ICD10: J44.9] Cony POOLE DO [address] [address] CPT-4: 40094 02/16/2022 ([id number]) OFFICE/OUTPATIENT VISIT EST Diagnosis: COPD exacerbation[ICD10: J44.1] Cony POOLE DO [address] [address] CPT-4: 68619 2022 ([id number]) OFFICE/OUTPATIENT VISIT EST Diagnosis: Contact with and (suspected) exposure to other viral communicable diseases[ICD10: Z20.828] Diagnosis: COPD with acute lower respiratory infection[ICD10: J44.0] Keeley Johnson CONY POOLE [address] [address] CPT-4: 62021 01/27/2022 ([id number]) OFFICE/OUTPATIENT VISIT EST Diagnosis: Essential (primary) hypertension[ICD10: I10] Diagnosis: Hypothyroidism, unspecified[ICD10: E03.9] Diagnosis: Chronic obstructive pulmonary disease, unspecified[ICD10: J44.9] Cony POOLE [address] [address] CPT-4: 33068 10/28/2021 ([id number]) OFFICE/OUTPATIENT VISIT EST Diagnosis: Essential (primary) hypertension[ICD10: I10] Diagnosis: Atrial fibrillation[ICD10: I48.91] Diagnosis: Edema[ICD10: R60.9] Diagnosis: Mixed hyperlipidemia[ICD10: E78.2] Diagnosis: Hypothyroidism[ICD10: E03.9] Diagnosis: Dyspnea[ICD10: R06.00] Diagnosis: Allergic rhinitis, unspecified[ICD10: J30.9] Cony POOLE [address] [address] CPT- 4: 60297 09/23/2021 ([id number]) OFFICE/OUTPATIENT VISIT EST Diagnosis: Essential (primary) hypertension[ICD10: I10] Diagnosis: Edema[ICD10: R60.9] Diagnosis: Stasis dermatitis[ICD10: I87.2] Diagnosis: Dyspnea[ICD10: R06.00] Cony Albarran [address] [address] CPT-4: 43191 08/21/2021 ([id number]) OFFICE/OUTPATIENT VISIT EST Diagnosis: Essential (primary) hypertension[ICD10: I10] Diagnosis: Atrial fibrillation[ICD10: I48.91] Diagnosis: Edema[ICD10: R60.9] Cony POOLE [address] [address] CPT-4: 98374 07/30/19 ([id number]) OFFICE/OUTPATIENT VISIT EST Diagnosis: Essential hypertension[ICD10: I10] Diagnosis: 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] Diagnosis: Reactive airway disease[ICD10: J45.909] Diagnosis: Sciatica[ICD10: M54.30] Cony CASTRO DO [address] [address] CPT-4: 88090 06/19/2021 ([id number]) NURSE/OUTPATIENT VISIT EST Diagnosis: Urinary tract infection[ICD10: N39.0] Cony POOLE DO [address] [address] CPT-4: 01987 05/12/2021 ([id number]) OFFICE/OUTPATIENT VISIT EST Diagnosis: Edema leg[ICD10: R60.0] Diagnosis: Recurrent UTI[ICD10: N39.0] 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] Cony POOLE DO [address] [address] CPT-4: 20811 05/08/2021 ([id number]) OFFICE/OUTPATIENT VISIT EST Diagnosis: Cervical radiculopathy[ICD10: M54.12] Diagnosis: 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] Cony POOLE DO [address] [address] CPT- 4: 21955 04/28/2021 ([id number]) OFFICE/OUTPATIENT VISIT EST Diagnosis: Other fatigue[ICD10: R53.83] Diagnosis: Hypothyroidism[ICD10: E03.9] Diagnosis: Vitamin B12 deficiency anemia, unspecified[ICD10: D51.9] Keeley Johnson CONY POOLE DO [address] [address] CPT-4: 75016 03/19/2021 ([id number]) NURSE/OUTPATIENT VISIT EST Diagnosis: Encounter for immunization[ICD10: Z23] Cony Virgilio POOLE [address] [address] CPT-4: 65416 02/27/2021 ([id number]) OFFICE/OUTPATIENT VISIT EST Diagnosis: Atrial fibrillation[ICD10: I48.91] Diagnosis: Essential (primary) hypertension[ICD10: I10] Diagnosis: Hypothyroidism[ICD10: E03.9] Diagnosis: Lymphadenopathy of right cervical region[ICD10: R59.0] Diagnosis: Osteopenia[ICD10: M85.80] Cony AVERY Abigail. ORE NDER DO [address] [address] CPT-4: 41928 02/06/2021 ([id number]) OFFICE/OUTPATIENT VISIT EST Diagnosis: Skin lesion of right leg[ICD10: L98.9] Keeley Florezkingmaria c SherwoodMILA SMelina ORENDER DO [address] [address] CPT-4: 65151 12/20/2020 ([id number]) OFFICE/OUTPATIENT VISIT EST Diagnosis: Nontraumatic blister of skin[ICD10: R23.8] Keeley Florezgail HOWELLQUELINE SMelina ORENDER DO [address] [address] CPT- 4: 04993 12/11/2020 ([id number]) OFFICE/OUTPATIENT VISIT EST Diagnosis: Nocturia[ICD10: R35.1] Diagnosis: Essential hypertension[ICD10: I10] Cony BELTRAN S. ORENDER DO [address] [address] CPT-4: 80540 11/11/2020 ([id number]) OFFICE/OUTPATIENT VISIT EST Diagnosis: Essential hypertension[ICD10: I10] Diagnosis: Paroxysmal atrial fibrillation[ICD10: I48.0] Diagnosis: Hypothyroidism[ICD10: E03.9] Cony AVERY SMelina ORENDER DO [address] [address] CPT-4: 54028 07/29/2020 ([id number]) OFFICE/OUTPATIENT VISIT EST Diagnosis: Dizziness and giddiness[ICD10: R42] Diagnosis: Essential hypertension[ICD10: I10] Cony [facility] [address] [place] [address] CPT-4: 72414 06/24/2020 ([id number]) OFFICE/OUTPATIENT VISIT EST Diagnosis: Weakness[ICD10: R53.1] Apoorva POOLE DO [facility] [address] [place] [address] CPT-4: 70198 06/21/19 ([id number]) OFFICE/OUTPATIENT VISIT EST Diagnosis: URI (upper respiratory infection)[ICD10: J06.9] Apoorva Rueda [facility] [address] [place] [address] CPT-4: 75002 03/19/2020 ([id number]) OFFICE/OUTPATIENT VISIT EST Diagnosis: Essential (primary) hypertension[ICD10: I10] Diagnosis: Atrial fibrillation status post cardioversion[ICD10: I48.91] Diagnosis: Right upper lobe pulmonary nodule[ICD10: R91.1] Cony POOLE DO [address] [address] CPT- 4: 71206 02/29/2020 ([id number]) OFFICE/OUTPATIENT VISIT EST Diagnosis: Stasis dermatitis[ICD10: I87.2] Apoorva POOLE DO [address] [address] CPT-4: 82995 02/22/2020 ([id number]) NURSE/OUTPATIENT VISIT EST Diagnosis: Urinary tract infection, site not specified[ICD10: N39.0] Cony POOLE DO [facility] [address] [place] [phone] CPT-4: 01316 02/20/2020 ([id number]) OFFICE/OUTPATIENT VISIT EST Diagnosis: Urinary tract infection[ICD10: N39.0] Apoorva POOLE DO [address] [address] CPT-4: 25262 02/13/2020 ([id number]) OFFICE/OUTPATIENT VISIT EST Diagnosis: Neck pain[ICD10: M54.2] Diagnosis: Muscle spasm[ICD10: M62.838] Cony STEVENSLINE Jeanine ORENDER DO [facility] [address] [place] [phone] CPT-4: 61850 2020 ([id number]) OFFICE/OUTPATIENT VISIT EST Diagnosis: Atrial fibrillation[ICD10: I48.91] Diagnosis: Essential hypertension[ICD10: I10] Diagnosis: Right wrist pain[ICD10: M25.531] Cony STEVENSLINE SMelina ORENDER DO [facility] [address] [place] [phone] CPT-4: 09044 01/22/2020 ([id number]) OFFICE/OUTPATIENT VISIT EST Diagnosis: Paroxysmal atrial fibrillation[ICD10: I48.0] Diagnosis: Essential hypertension[ICD10: I10] Cony Colbylea OCONNELL DEVIN SMelina ORENDER DO [address] [address] CPT-4: 43115 12/26/2019 ([id number]) OFFICE/OUTPATIENT VISIT EST Diagnosis: Lung nodule[ICD10: R91.1] Diagnosis: CHF (congestive heart failure)[ICD10: I50.9] Diagnosis: Atrial fibrillation[ICD10: I48.91] Apoorva BELTRAN S. ORENDER DO [address] [address] CPT-4: 02438 11/27/2019 ([id number]) OFFICE/OUTPATIENT VISIT EST Diagnosis: Urinary tract infection[ICD10: N39.0] Diagnosis: Hypotension[ICD10: I95.9] Conydella HOWELLQUELINE Jeanine ORE NDER DO [address] [address] CPT-4: 66237 11/09/2019 ([id number]) OFFICE/OUTPATIENT VISIT EST Diagnosis: Left leg swelling[ICD10: M79.89] Cony Colbylea HOWELLCONY Jeanine ORENDER DO [facility] [address] [place] [phone] CPT-4: 57875 10/10/2019 ([id number]) OFFICE/OUTPATIENT VISIT EST Diagnosis: Muscle spasm[ICD10: M62.838] Cony BOWMANNDER DO [address] [address] CPT-4: 99099 08/25/2019 ([id number]) OFFICE/OUTPATIENT VISIT EST Diagnosis: Low back pain[ICD10: M54.5] Diagnosis: Sciatica of left side[ICD10: M54.32] Cony Solorzano ORENDER DO [address] [address] CPT-4: 25962 07/13/2019 ([id number]) OFFICE/OUTPATIENT VISIT EST Diagnosis: Pneumonia due to infectious organism[ICD10: J18.9] Cony BOWMANNDER DO [address] [address] CPT- 4: 03313 05/18/2019 ([id number]) OFFICE/OUTPATIENT VISIT EST Diagnosis: Pneumonia due to infectious organism[ICD10: J18.9] Cony AVERY SMelina ORENDER DO [address] [address] CPT- 4: [address] 05/17/2019 ([id number]) NURSE/OUTPATIENT VISIT EST Diagnosis: Urinary tract infection[ICD10: N39.0] Cony BOWMANNDER DO [address] [address] CPT-4: 42549 05/08/2019 ([id number]) NURSE/OUTPATIENT VISIT EST Diagnosis: Acute pharyngitis[ICD10: J02.9] Diagnosis: Altered taste[ICD10: R43.2] Cony AVERY S. O RENDER DO [address] [address] CPT-4: 72037 05/08/2019 ([id number]) OFFICE/OUTPATIENT VISIT EST Diagnosis: Urinary tract infection, site not specified[ICD10: N39.0] Diagnosis: Stomatitis and mucositis with change of taste[ICD10: K12.1] Cony AVERY S. ORENDER [address] [address] CPT-4: 18054 04/24/2019 ([id number]) NURSE/OUTPATIENT VISIT EST Diagnosis: Hematuria[ICD10: R31.9] Cony CASTRO [address] [address] CPT-4: 48826 04/21/2019 ([id number]) OFFICE/OUTPATIENT VISIT EST Diagnosis: Oral mucositis (ulcerative), unspecified[ICD10: K12.30] Diagnosis: Stomatitis and mucositis with change of taste[ICD10: K12.1] Cony POOLE [address] [address] CPT-4: 70503 04/10/2019 ([id number]) NURSE/OUTPATIENT VISIT EST Diagnosis: FLU VACCINE[ICD10: Z23] Cony GRADY [address] [address] CPT-4: 84369 03/02/2019 ([id number]) OFFICE/OUTPATIENT VISIT EST Diagnosis: Essential (primary) hypertension[ICD10: I10] Diagnosis: Other fatigue[ICD10: R53.83] Diagnosis: Hypothyroidism, unspecified[ICD10: E03.9] Diagnosis: Nocturia[ICD10: R35.1] Cony Albarran DO [address] [address] CPT-4: 26705 02/16/2019 ([id number]) NURSE/OUTPATIENT VISIT EST Diagnosis: Essential (primary) hypertension[ICD10: I10] Cony POOLE [address] [address] CPT- 4: 77564 01/24/2019 ([id number]) OFFICE/OUTPATIENT VISIT EST Diagnosis: Acute upper respiratory infection, unspecified[ICD10: J06.9] Apoorva POOLE [address] [address] CPT-4: 55252 12/20/2018 ([id number]) OFFICE/OUTPATIENT VISIT EST Diagnosis: Paroxysmal atrial fibrillation[ICD10: I48.0] Diagnosis: Other fatigue[ICD10: R53.83] Diagnosis: Essential (primary) hypertension[ICD10: I10] Diagnosis: Hypothyroidism, unspecified[ICD10: E03.9] Cony POOLE DO [address] [address] CPT- 4: 39102 12/12/2018 ([id number]) OFFICE/OUTPATIENT VISIT EST Diagnosis: Essential (primary) hypertension[ICD10: I10] Diagnosis: Allergic rhinitis due to pollen[ICD10: J30.1] Cony POOLE DO [address] [address] CPT- 4: 33754 10/19/2018 ([id number]) OFFICE/OUTPATIENT VISIT EST Diagnosis: Allergic rhinitis due to pollen[ICD10: J30.1] Diagnosis: Essential (primary) hypertension[ICD10: I10] Cony POOLE DO [address] [address] CPT- 4: 17832 10/05/2018 ([id number]) OFFICE/OUTPATIENT VISIT EST Diagnosis: Allergic rhinitis due to pollen[ICD10: J30.1] Diagnosis: Other fatigue[ICD10: R53.83] Diagnosis: Hematuria, unspecified[ICD10: R31.9] Cony POOLE DO [address] [address] CPT-4: 89686 09/28/2018 ([id number]) OFFICE/OUTPATIENT VISIT EST Diagnosis: Allergic rhinitis due to pollen[ICD10: J30.1] Diagnosis: Cough[ICD10: R05] Diagnosis: Dermatitis, unspecified[ICD10: L30.9] Diagnosis: Slow transit constipation[ICD10: K59.01] Cony POOLE DO [address] [address] CPT- 4: 42610 09/26/2018 ([id number]) OFFICE/OUTPATIENT VISIT EST Diagnosis: Acute bronchitis, unspecified[ICD10: J20.9] Diagnosis: Other specified respiratory disorders[ICD10: J98.8] Merry POOLE DO [address] [address] CPT- 4: 84676 09/23/2018 ([id number]) OFFICE/OUTPATIENT VISIT EST Diagnosis: Acute bronchitis, unspecified[ICD10: J20.9] Diagnosis: Fever, unspecified[ICD10: R50.9] Cony POOLE DO [address] [address] CPT-4: 49812 09/22/2018 ([id number]) OFFICE/OUTPATIENT VISIT EST Diagnosis: Tachycardia, unspecified[ICD10: R00.0] Diagnosis: Dysuria[ICD10: R30.0] Diagnosis: Personal history of urinary (tract) infections[ICD10: Z87.440] Merry POOLE DO [address] [address] CPT-4: 21945 09/20/2018 ([id number]) OFFICE/OUTPATIENT VISIT EST Diagnosis: Other fatigue[ICD10: R53.83] Diagnosis: Hypothyroidism, unspecified[ICD10: E03.9] Cony POOLE DO [address] [address] CPT- 4: 56868 09/15/2018 ([id number]) NURSE/OUTPATIENT VISIT EST Diagnosis: Urinary tract infection, site not specified[ICD10: N39.0] Cony POOLE DO [address] [address] CPT-4: 98264 09/14/2018 ([id number]) OFFICE/OUTPATIENT VISIT EST Diagnosis: Chronic fatigue, unspecified[ICD10: R53.82] Diagnosis: Essential (primary) hypertension[ICD10: I10] Diagnosis: Hypothyroidism, unspecified[ICD10: E03.9] Diagnosis: Paroxysmal atrial fibrillation[ICD10: I48.0] Cony POOLE DO [address] [address] CPT- 4: 94096 09/08/2018 ([id number]) OFFICE/OUTPATIENT VISIT EST Diagnosis: Dysuria[ICD10: R30.0] Diagnosis: Personal history of urinary (tract) infections[ICD10: Z87.440] Merry POOLE DO [address] [address] CPT-4: 84033 09/05/2018 ([id number]) NURSE/OUTPATIENT VISIT EST Diagnosis: Essential (primary) hypertension[ICD10: I10] Diagnosis: Edema, unspecified[ICD10: R60.9] Cony POOLE DO [address] [address] CPT-4: 25362 04/20/2018 ([id number]) OFFICE/OUTPATIENT VISIT EST Diagnosis: FLU VACCINE[ICD10: Z23] Diagnosis: Hypothyroidism, unspecified[ICD10: E03.9] Diagnosis: Essential (primary) hypertension[ICD10: I10] Diagnosis: Localized edema[ICD10: R60.0] Cony POOLE DO [address] [address] CPT-4: 88324 03/03/2018 ([id number]) OFFICE/OUTPATIENT VISIT EST Diagnosis: Atopic dermatitis, unspecified[ICD10: L20.9] Apoorva POOLE DO [address] [address] CPT- 4: 77042 02/16/2018 ([id number]) OFFICE/OUTPATIENT VISIT EST Diagnosis: Pressure ulcer of right heel, stage 1[ICD10: L89.611] Diagnosis: Other fatigue[ICD10: R53.83] Apoorva POOLE DO [address] [address] CPT-4: 57730 01/26/2018 OFFICE/OUTPATIENT VISIT EST Diagnosis: Hypothyroidism, unspecified[ICD10: E03.9] Diagnosis: Essential (primary) hypertension[ICD10: I10] Diagnosis: Localized edema[ICD10: R60.0] Diagnosis: Other fatigue[ICD10: R53.83] Cony POOLE DO [address] [address] CPT-4: 54539 11/30/2017 ([id number]) OFFICE/OUTPATIENT VISIT EST Diagnosis: Other seborrheic keratosis[ICD10: L82.1] Cony POOLE DO [address] [address] CPT- 4: 99857 11/04/2017 ([id number]) OFFICE/OUTPATIENT VISIT EST Diagnosis: Achilles tendinitis, right leg[ICD10: M76.61] Apoorva POOLE [address] [address] CPT- 4: 96406 10/20/2017 ([id number]) OFFICE/OUTPATIENT VISIT EST Diagnosis: Essential (primary) hypertension[ICD10: I10] Diagnosis: Hypothyroidism, unspecified[ICD10: E03.9] Diagnosis: Weakness[ICD10: R53.1] Cony Albarran [address] [address] CPT-4: 75021 08/30/2017 ([id number]) OFFICE/OUTPATIENT VISIT EST Diagnosis: Hypothyroidism, unspecified[ICD10: E03.9] Diagnosis: Essential (primary) hypertension[ICD10: I10] Diagnosis: Paroxysmal atrial fibrillation[ICD10: I48.0] Cony POOLE [address] [address] CPT- 4: 45649 05/25/2017 ([id number]) OFFICE/OUTPATIENT VISIT EST Diagnosis: Essential (primary) hypertension[ICD10: I10] Diagnosis: Hypothyroidism, unspecified[ICD10: E03.9] Cony POOLE [address] [address] CPT- 4: 57832 03/22/2017 ([id number]) OFFICE/OUTPATIENT VISIT EST Diagnosis: FLU VACCINE[ICD10: Z23] Cony CASTRO DO [address] [address] CPT-4: 76862 03/08/2017 ([id number]) OFFICE/OUTPATIENT VISIT EST Diagnosis: Essential (primary) hypertension[ICD10: I10] Diagnosis: Hypothyroidism, unspecified[ICD10: E03.9] Cony POOLE DO [address] [address] CPT- 4: 27343 01/18/2017 ([id number]) OFFICE/OUTPATIENT VISIT EST Diagnosis: Essential (primary) hypertension[ICD10: I10] Diagnosis: Localized edema[ICD10: R60.0] Diagnosis: Hypotension, unspecified[ICD10: I95.9] Cony POOLE DO [address] [address] CPT-4: 62004 12/16/2016 ([id number]) OFFICE/OUTPATIENT VISIT EST Diagnosis: Hypothyroidism, unspecified[ICD10: E03.9] Diagnosis: Essential (primary) hypertension[ICD10: I10] Cony POOLE DO [employer] [address] [place] [address] CPT- 4: 83329 11/18/2016 ([id number]) OFFICE/OUTPATIENT VISIT EST Diagnosis: Hypotension due to drugs[ICD10: I95.2] Diagnosis: Lymphangitis[ICD10: I89.1] Diagnosis: Hypothyroidism, unspecified[ICD10: E03.9] Cony POOLE DO [employer] [address] [place] [address] CPT- 4: 97957 11/04/2016 ([id number]) OFFICE/OUTPATIENT VISIT EST Diagnosis: Hypotension due to drugs[ICD10: I95.2] Diagnosis: Other fatigue[ICD10: R53.83] Cony POOLE DO [address] [address] CPT-4: 60045 10/27/2016 ([id number]) OFFICE/OUTPATIENT VISIT EST Diagnosis: Other symptoms and signs involving the genitourinary system[ICD10: R39.89] Cony POOLE DO [address] [address] CPT-4: 57261 10/26/2016 OFFICE/OUTPATIENT VISIT EST Diagnosis: Venous insufficiency (chronic) (peripheral)[ICD10: I87.2] Diagnosis: Lymphangitis[ICD10: I89.1] Diagnosis: Cellulitis of left lower limb[ICD10: L03.116] Cony POOLE DO [address] [address] CPT- 4: 79433 10/13/2016 OFFICE/OUTPATIENT VISIT EST Diagnosis: Cellulitis of left lower limb[ICD10: L03.116] Diagnosis: Lymphangitis[ICD10: I89.1] Cony MOCTEZUMA [address] [address] CPT-4: 04247 10/08/2016 ([id number]) OFFICE/OUTPATIENT VISIT EST Diagnosis: Hypothyroidism, unspecified[ICD10: E03.9] Diagnosis: Essential (primary) hypertension[ICD10: I10] Diagnosis: Other fatigue[ICD10: R53.83] Diagnosis: Cellulitis of left lower limb[ICD10: L03.116] Cony POOLE DO [address] [address] CPT- 4: 21882 10/05/2016 ([id number]) OFFICE/OUTPATIENT VISIT EST Diagnosis: Essential (primary) hypertension[ICD10: I10] Diagnosis: Localized edema[ICD10: R60.0] Diagnosis: Other fatigue[ICD10: R53.83] Cony POOLE DO [address] [address] CPT-4: 64385 08/25/2016 ([id number]) OFFICE/OUTPATIENT VISIT EST Diagnosis: Essential (primary) hypertension[ICD10: I10] Diagnosis: Hypothyroidism, unspecified[ICD10: E03.9] Diagnosis: Weakness[ICD10: R53.1] Cony Albarran [address] [address] CPT-4: 74109 07/28/2016 ([id number]) OFFICE/OUTPATIENT VISIT EST Diagnosis: Essential (primary) hypertension[ICD10: I10] Merle POOLE [address] [address] CPT- 4: 36001 06/23/2016 ([id number]) OFFICE/OUTPATIENT VISIT EST Diagnosis: Cough[ICD10: R05] Diagnosis: Essential (primary) hypertension[ICD10: I10] Merle POOLE [address] [address] CPT- 4: 37707 06/03/2016 ([id number]) OFFICE/OUTPATIENT VISIT EST Diagnosis: Acute upper respiratory infection, unspecified[ICD10: J06.9] Diagnosis: Fever, unspecified[ICD10: R50.9] Merle POOLE [address] [address] CPT-4: 54519 05/26/2016 ([id number]) OFFICE/OUTPATIENT VISIT EST Diagnosis: Essential (primary) hypertension[ICD10: I10] Diagnosis: Paroxysmal atrial fibrillation[ICD10: I48.0] Diagnosis: Venous insufficiency (chronic) (peripheral)[ICD10: I87.2] Diagnosis: Primary insomnia[ICD10: F51.01] Diagnosis: Hypothyroidism, unspecified[ICD10: E03.9] Cony Bowmanlea CONY Jeanine OPOLE [address] [address] CPT- 4: 99337 05/20/2016 ([id number]) OFFICE/OUTPATIENT VISIT EST Diagnosis: Pain in right ankle and joints of right foot[ICD10: M25.571] Diagnosis: Venous insufficiency (chronic) (peripheral)[ICD10: I87.2] Diagnosis: FLU VACCINE[ICD10: Z23] Cony CASTRO [address] [address] CPT-4: 29218 03/19/2016 ([id number]) OFFICE/OUTPATIENT VISIT EST Diagnosis: Essential (primary) hypertension[ICD10: I10] Diagnosis: Localized edema[ICD10: R60.0] Diagnosis: Paroxysmal atrial fibrillation[ICD10: I48.0] Diagnosis: PNEUMOCOCCAL VACCINE[ICD10: Z23] Cony POOLE DO [address] [address] CPT-4: 22871 01/13/2016 ([id number]) OFFICE/OUTPATIENT VISIT EST Diagnosis: Hypo-osmolality and hyponatremia[ICD10: E87.1] Diagnosis: Essential (primary) hypertension[ICD10: I10] Diagnosis: Paroxysmal atrial fibrillation[ICD10: I48.0] Cony POOLE [address] [address] CPT- 4: 04853 12/12/2015 ([id number]) OFFICE/OUTPATIENT VISIT EST Diagnosis: Essential (primary) hypertension[ICD10: I10] Diagnosis: Edema, unspecified[ICD10: R60.9] Diagnosis: Hypo-osmolality and hyponatremia[ICD10: E87.1] Cony POOLE DO [address] [address] CPT- 4: 84489 12/05/2015 ([id number]) OFFICE/OUTPATIENT VISIT EST Diagnosis: Hypo-osmolality and hyponatremia[ICD10: E87.1] Diagnosis: Hematuria, unspecified[ICD10: R31.9] Cony POOLE [address] [address] CPT-4: 17956 11/27/2015 ([id number]) OFFICE/OUTPATIENT VISIT EST Diagnosis: Essential (primary) hypertension[ICD10: I10] Diagnosis: Edema, unspecified[ICD10: R60.9] Diagnosis: Dizziness and giddiness[ICD10: R42] Merle STEVENSDelano PETROS POOLE [address] [address] CPT-4: 55587 10/21/2015 ([id number]) OFFICE/OUTPATIENT VISIT EST Diagnosis: Essential (primary) hypertension[ICD10: I10] Diagnosis: Localized edema[ICD10: R60.0] Diagnosis: Paroxysmal atrial fibrillation[ICD10: I48.0] Cony AVERY AbigailMelina VIRGILIO [address] [address] CPT- 4: 86440 10/17/2015 ([id number]) OFFICE/OUTPATIENT VISIT EST Diagnosis: Essential (primary) hypertension[ICD10: I10] Diagnosis: Tachycardia, unspecified[ICD10: R00.0] Diagnosis: Hypothyroidism, unspecified[ICD10: E03.9] Diagnosis: Palpitations[ICD10: R00.2] Merle Hernandez CONY Jeanine WINSTON[address] [address] CPT-4: 66469 10/07/2015 ([id number]) OFFICE/OUTPATIENT VISIT EST Diagnosis: Acute upper respiratory infection, unspecified[ICD10: J06.9] Merle Hernandez CONY AbigailMelina VIRGILIO [address] [address] CPT-4: 02663 09/03/2015 ([id number]) OFFICE/OUTPATIENT VISIT EST Diagnosis: Essential (primary) hypertension[ICD10: I10] Cony AVERY AbigailMelina VIRGILIO [address] [address] CPT- 4: 34567 08/01/2015 OFFICE/OUTPATIENT VISIT NEW Diagnosis: Essential (primary) hypertension[ICD10: I10] Diagnosis: Hypothyroidism, unspecified[ICD10: E03.9] Diagnosis: Family history of malignant neoplasm of breast[ICD10: Z80.3] Cony AVERY AbigailMelina VIRGILIO DO [address] [address] CPT-4: 59885 06/27/2015 Plan of Care Planned Activity Notes Codes Status Date Visit Diagnosis Plan: Stress and adjustment reaction D iscussion: Trial of effexor XR 37.5mg po q HS Fwup 1month ICD-9 : 309.89 ICD-10 : F43.29 10/01/2022 Appointment: Cony Poole WPtel: [phone] [phone] ACUTE ILLNESS 10/01/2022 Visit Diagnosis Plan: Hypothyroidism, [...] : R09.89 08/25/2022 Appointment: Cony Poole WPtel: [address] [place], [place] [phone] FOLLOW UP 08/25/2022 Care Plan: X-RAY EXAM NECK SPINE 4/5VWS LOINC : 74697-0 Pending 08/25/2022 Visit Diagnosis Plan: Chronic atrial [...] : J44.9 08/11/2022 Appointment: Cony Poole WPtel: [address] [place], [place] [phone] FOLLOW UP 08/11/2022 Appointment: Cony Poole WPtel: [address] [place], [place] [phone] US RESCHEDULED 08/11/2022 Visit Diagnosis Plan: Edema [...] : R00.1 07/28/2022 Appointment: Cony Poole WPtel: [address] [place], [place] [phone] FOLLOW UP 07/28/2022 Patient Education: hydralazine- [employer] Coupon [id number] Completed 07/28/2022 Patient Education: losartan- [employer] Coupon [id number] Completed 07/28/2022 Visit Diagnosis Plan: URI (upper respiratory infection ) Discussion: Influenza A and B and Covid negative Z-pack Continue budesonide and perforomist and add albuterol at least TID Notify if worsening ICD-9 : 465.9 ICD-10 : J06.9 07/14/2022 Appointment: Cony Poole WPtel: [address] [place], [place] [phone] [place] [address] ACUTE ILLNESS 07/14/2022 Visit Diagnosis Plan: Hypothyroidism Discussion: Ferrer e syntrhoid to 88mcg M-F and 75mcg on [...] : I10 06/23/2022 Appointment: Cony Poole WPtel: [phone] [phone] FOLLOW UP 06/23/2022 Visit Diagnosis Plan: Hypothyroidism [...] 401.9 ICD-10 : I10 05/25/2022 Appointment: Cony Poole WPtel: [phone] [phone] ACUTE ILLNESS 05/25/2022 Patient Education: losartan- [employer] Coupon [id number] [email or web address] Completed 05/25/2022 Visit Diagnosis Plan: Essential hypertension [...] 03/19/2022 Visit Diagnosis Plan: Hypothyroidism Discussion: Stabl e ICD-9 : 244.9 ICD-10 : E03.9 03/19/2022 Appointment: Cony Poole WPtel: [phone] [phone] US FOLLOW UP 03/19/2022 Visit Diagnosis Plan: COPD exacerbation Discussion: Co ntinue budesonide/performomist and use albuterol prn as rescue Go for COVID booster Flu shot in March Fwup 1month ICD-9 : 491.21 ICD-10 : J44.1 02/16/2022 Appointment: Cony Poole WPtel: [phone] [phone] US FOLLOW UP 02/16/2022 Visit Diagnosis Plan: COPD exacerbation Discussion: Co ntinue breztri 2p BID and albuterol prn Will switch to Nebulizer with Budesonide 0.5mg BID and Perforomist 20mcg BID with duoneb q4hrs prn Fwup 2 weeks unless worsening ICD-9 : 491.21 ICD-10 : J44.1 2022 Appointment: Cony Poole WPtel: [phone] [phone] US FOLLOW UP 2022 Visit Diagnosis Plan: COPD with acute lower respirator y infection Discussion: Rapid covid negative CXR today Rocephin 1 gm IM Sample of breztri given Albuterol inhaler q4 hrs prn Already has fwup appt and states tomorrow is her birthday, so she does not want to come in tomorrow if at all possible- will call and let us know how she is doing tomorrow morning and will review CXR tomorrow and fwup if needed ICD-9 : 496 ICD-10 : J44.0 01/27/2022 Appointment: NicoradhaKeeley lombardi WPtel: [phone] [phone] ACUTE ILLNESS 01/27/2022 Patient Education: Patient Medication Summary Completed 01/27/2022 Referral: Soy Rodriguez WPtel: [facility] [address] [place] [address] [address] [id number] 09/30 - for office Completed 10/29/2021 Visit [...] E03.9 10/28/2021 Appointment: Cony Poole WPtel: [phone] [phone] FOLLOW UP 10/28/2021 Visit Diagnosis Plan: [...] : R06.00 09/23/2021 Appointment: Cony Poole WPtel: [phone] [phone] US FOLLOW UP 09/23/2021 Appointment: Cony Poole WPtel: [phone] [phone] US CANCELED 09/08/2021 Visit Diagnosis Plan: Essential [...] : I87.2 08/21/2021 Appointment: Cony Poole WPtel: [phone] [phone] US FOLLOW UP 08/21/2021 Appointment: Keeley Johnson WPtel: [phone] [id number] US CANCELED 08/12/2021 Visit Diagnosis Plan: Essential (primary) hypertension Discussion: Stable ICD-9 : 401.9 ICD-10 : I10 07/30/2021 Visit Diagnosis Plan: Atrial fibrillation Discussion: On cardizem and eliquis and rate controlled and asympotomatic Sees Dr Lopez in 2 weeks ICD-9 : 427.31 ICD-10 : I48.91 07/30/2021 Appointment: Cony Poole WPtel: [address] [place], [place] [phone] FOLLOW UP 07/30/2021 Appointment: Cony Poole WPtel: [address] [place], [place] [phone] due to weather CANCELED 07/24/2021 Visit Diagnosis [...] 493.90 ICD-10 : J45.909 06/19/2021 Appointment: Cony Poole WPtel: [address] [place], [place] [phone] FOLLOW UP 06/19/2021 Appointment: Cony Poole WPtel: [address] [place], [place] [phone] US seen 05/08/21 at 1 pm by doctor as appt opened up CANCELED 05/14/2021 Appointment: Cony Poole WPtel: [address] [place], [place] [phone] UA 05/12/2021 Visit Diagnosis Plan: Recurrent UTI Discussion: Corey chavez UA ICD-9 : 599.0 ICD-10 : N39.0 05/08/2021 Visit Diagnosis Plan: Right-sided carotid artery obstr uction Discussion: Surgery is tentatively scheduled on May 26 ICD-9 : 433.10 ICD-10 : I65.21 05/08/2021 Visit Diagnosis Plan: Edema leg Discussion: Wearing co mpression stockings Discussed likely from increased dose of cardizem ICD-9 : 782.3 ICD-10 : R60.0 05/08/2021 Appointment: Cony Poole WPtel: [address] [place], [place] [phone] ACUTE ILLNESS 05/08/2021 Visit Diagnosis Plan: Cervical radiculopathy Discussio n: Start PT ICD-9 : 723.4 ICD-10 : M54.12 04/28/2021 Visit Diagnosis Plan: Stress and adjustment reaction D iscussion: Stress Reducers Discussed Discussion: Stress Reducers Discussed meds ICD-9 : 309.89 ICD-10 : F43.29 04/28/2021 Appointment: Cony Poole WPtel: [address] [place], [place] [phone] ACUTE ILLNESS 04/28/2021 Appointment: Cony Poole WPtel: [address] [place], [place] [phone] US RESCHEDULED 03/25/2021 Visit Diagnosis Plan: Other fatigue Discussion: Will r echeck thyroid labs as previously scheduled, B12, and ferritin level per Dr. Brown- discussed could be causing fatigue. Will f/u after labs or sooner for worsening/concerns. ICD-9 : 780.79 ICD-10 : R53.83 03/19/2021 Appointment: Keeley Johnson WPtel: [phone] [phone] ACUTE ILLNESS 03/19/2021 Patient Education: Patient Medication Summary Completed 03/19/2021 Appointment: Cony Poole WPtel: [address] [place], [place] [phone] US INJECTION 02/27/2021 Visit Diagnosis Plan: Essential [...] I48.91 02/06/2021 Appointment: Cony Poole WPtel: [phone] [phone] ACUTE ILLNESS 02/06/2021 Care Plan: US EXAM OF HEAD AND NECK LOIN C : 29744-6 Pending 02/06/2021 Care Plan: DXA BONE DENSITY AXIAL LOINC : 63803-3 Pending 02/06/2021 Appointment: Keeley Johnson WPtel: [phone] [phone] US CANCELED 12/24/2020 Visit Diagnosis Plan: Skin lesion of right leg Discuss ion: Appears to be healing- is smaller, no s/s of infection. Will f/u if does not improve or worsens. ICD-9 : 709.9 ICD-10 : L98.9 12/20/2020 Appointment: Keeley Johnson WPtel: [phone] [id number] OFFICE SURGERY 12/20/2020 Patient Education: Patient Medication Summary Completed 12/20/2020 Visit Diagnosis Plan: Nontraumatic blister of skin Dis cussion: Small isolated lesion, no s/s of infection. Bandaid and neosporin applied. 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 F/U for worsening/concerns or if more lesions appear. ICD-9 : 709.8 ICD-10 : R23.8 12/11/2020 Appointment: Keeley Johnson WPtel: [phone] ACUTE ILLNESS 12/11/2020 Patient Education: Patient [...] : R35.1 11/11/2020 Appointment: Cony Poole WPtel: [address] [place], [place] [address] ACUTE ILLNESS 11/11/2020 Appointment: Cony Poole WPtel: [address] [place], [place] [address] CANCELED 11/11/2020 Visit Diagnosis Plan: Inflamed seborrheic keratosis Di scussion: Cryotherapy as above ICD-9 : 702.11 ICD-10 : L82.0 09/05/2020 Appointment: Cony Poole WPtel: [address] [place], [place] [address] ACUTE ILLNESS 09/05/2020 Visit Diagnosis Plan: Essential hypertension Discussio n: Stable ICD-9 : 401.9 ICD-10 : I10 07/29/2020 Visit Diagnosis Plan: Paroxysmal atrial fibrillation D iscussion: On eliquis ICD-9 : 427.31 ICD-10 : I48.0 07/29/2020 Visit Diagnosis Plan: Hypothyroidism Discussion: Lab d iscussed Will recheck lab in 2mos ICD-9 : 244.9 ICD-10 : E03.9 07/29/2020 Appointment: Cony Poole WPtel: [phone] [phone] FOLLOW UP 07/29/2020 Visit Diagnosis Plan: Dizziness and giddiness Discussi on: Continue increased dose of Cardizem ER 120mg po BID and monitor BP/pulse Has LINQ device in place Discussed Kardia EKG Follow Up: 1 months ICD-9 : 780.4 ICD-10 : R42 06/24/2020 Appointment: Cony Poole WPtel: [phone] [phone] [facility] Follow Up 06/24/2020 Visit Diagnosis Plan: Weakness Discussion: telephone v isit completed. patient unable to pinpoint her symptoms. discussed with patient that she needs labs and urine. i informed patient that i can send order to [facility] but results will be unknown until [...] : R53.1 06/21/2020 Appointment: Apoorva Rueda [address] [employer] [place] [id number] TELEMEDICINE 06/21/2020 Visit Diagnosis Plan: URI (upper [...] : J06.9 03/19/2020 Appointment: Apoorva Rueda [address] [employer] [id number] TELEMEDICINE 03/19/2020 Visit Diagnosis Plan: Atrial fibrillation [...] : I10 02/29/2020 Appointment: Cony Poole WPtel: [address] [place] [address] FOLLOW UP 02/29/2020 Care Plan: CT THORAX [...] ICD-10 : I87.2 02/22/2020 Appointment: Apoorva Rueda [address] [place] [address] ACUTE ILLNESS 02/22/2020 Appointment: Cony Poole WPtel: [address] [place], [place] [address] 02/20/2020 Visit Diagnosis Plan: Urinary tract infection Discussi on: based on patient's age and length of illness, clinical s/s, will give 1 gm rocephin in office. urine sent for culture. push fluids and call office with new or worsening symptoms. ICD-9 : 599.0 ICD-10 : N39.0 02/13/2020 Appointment: Apoorva Rueda [address] [place] [address] ACUTE ILLNESS 02/13/2020 Visit Diagnosis Plan: Neck pain Discussion: Daily stre tches Moist heat Topical muscle rub Can use baclofen 1/2 tab during day and full tab at night ICD-9 : 723.1 ICD-10 : M54.2 2020 Appointment: Cony Poole WPtel: [address] [place] [phone] ACUTE ILLNESS 2020 Visit Diagnosis Plan: Atrial [...] : M25.531 01/22/2020 Appointment: Cony Poole WPtel: [address] [place], [place] [phone] FOLLOW UP 01/22/2020 Visit Diagnosis Plan: Paroxysmal atrial fibrillation D iscussion: Stable with new meds Follow Up: 1 months ICD-9 : 427.31 ICD-10 : I48.0 12/26/2019 Visit Diagnosis Plan: Essential hypertension Discussio n: Stable ICD-9 : 401.9 ICD-10 : I10 12/26/2019 Appointment: Cony Poole WPtel: [address] [place], [place] [phone] Hospital Follow Up 12/26/2019 Appointment: Cony Poole WPtel: [address] [place], [place] [phone] US CANCELED 12/25/2019 Visit Diagnosis Plan: Lung [...] ICD-10 : I50.9 11/27/2019 Appointment: Apoorva Rueda [address] [place], [place] [phone] US FOLLOW UP 11/27/2019 Visit Diagnosis Plan: Hypotension Discussion: Decrease amlodopine to once daily Monitor home BP/pulse and report readings in 2 weeks ICD-9 : 458.9 ICD-10 : I95.9 11/09/2019 Visit Diagnosis Plan: Urinary tract infection Discussi on: Cefdinir Culture urine ICD-9 : 599.0 ICD-10 : N39.0 11/09/2019 Appointment: Apoorva Rueda [address] [place], [place] [phone] CANCELED 11/09/2019 Appointment: Cony Poole WPtel: [address] [place], [place] [phone] ACUTE ILLNESS 11/09/2019 Patient Education: cefdinir- OptimizeRX Coupon [id number] https://www.[facility].[employer]/samplemd/resources/getResource/61/tn1vox80-349p-4366-m4 Completed 11/09/2019 Visit Diagnosis Plan: Left leg swelling Discussion: St at LLE doppler now ICD-9 : 729.81 ICD-10 : M79.89 10/10/2019 Appointment: Cony Poole WPtel: [address] [place], [place] [phone] ACUTE ILLNESS 10/10/2019 Visit Diagnosis Plan: Muscle spasm Discussion: Can use tylenol 325mg po TID Topical muscle rub Baclofen 10mg 1/2-1 po q HS for spasm but hold temazepam while taking Notify if worsening or persists Stretches/Moist Heat ICD-9 : 728.85 ICD-10 : M62.838 08/25/2019 Appointment: Cony Poole WPtel: [address] [place], [place] [phone] TELEMEDICINE 08/25/2019 Patient Education: baclofen- [employer]imize[employer] Coupon [id number] https://www.[employer]ocality/[facility]/resources/getResource/61/scqb1835-19iz-3xe0-7t Completed 08/25/2019 Visit Diagnosis Plan: Low back pain Discussion: Check L/S spine x-rays ICD-9 : 724.2 ICD-10 : M54.5 07/13/2019 Visit Diagnosis Plan: Sciatica of left side Discussion : Will likely start with PT pending x-ray results ICD-9 : 724.3 ICD-10 : M54.32 07/13/2019 Appointment: Cony Poole WPtel: [address] [place], [place] [phone] ACUTE ILLNESS 07/13/2019 Care Plan: X-RAY EXAM L-S SPINE 2/3 VWS LOINC : 77317-1 Pending 07/13/2019 Visit Diagnosis Plan: Pneumonia due to infectious orga nism Discussion: Repeat rocephin 1gm IM today Start cefdinir tomorrow To ER this weekend if worsens ICD-9 : 486 ICD-10 : J18.9 05/18/2019 Appointment: Cony Poole WPtel: [facility]9 [phone] FOLLOW UP 05/18/2019 Patient Education: cefdinir- [employer] Coupon [id number] https://www.relocality/[facility]/resources/getResource/61/3c11b89s-92j5-02m9-b8 Completed 05/18/2019 Patient Education: temazepam- [employer]imize[employer] Coupon [id number] 05 https://www.relocality/[facility]/resources/getResource/61/ip4d98ay-4714-2zz2-0y Completed 05/18/2019 Patient Education: Synthroid- Optimize[employer] Coupon [id number] 60 https://www.relocality/[facility]/resources/getResource/61/07952aon-qr08-0n79-02 Completed 05/18/2019 Patient Education: Cytomel- OptimizeRX Coupon [id number] https://www.relocality/sampleCollegeMapper/resources/getResource/61/kq77mz77-686g-697v-v5 Completed 05/18/2019 Visit Diagnosis Plan: Pneumonia due to infectious orga nism Discussion: Rocephin 1gm IM now Recheck tomorrow ICD-9 : 486 ICD-10 : J18.9 05/17/2019 Appointment: Cony Poole WPtel: [address] [place], [place] [phone] FOLLOW UP 05/17/2019 Appointment: Cony Poole WPtel: [address] [place], [place] [phone] 05/10/19 1630---see note in chart related to throat culture (km) CANCELED 05/10/2019 Appointment: Cony Poole WPtel: [address] [place], [place] [phone] [facility] 05/08/2019 Appointment: Cony Poole WPtel: [address] [place], [place] [phone] NURSE SERVICES 05/08/2019 Visit Diagnosis Plan: Stomatitis [...] : N39.0 04/24/2019 Appointment: Cony Poole WPtel: [address] [place], [place] [phone] FOLLOW UP 04/24/2019 Patient Education: nystatin- Opt[employer] Coupon [id number] https://www.relocality/samplemd/resources/getResource/61/n238505u-a145-1n7s-o7 Completed 04/24/2019 Appointment: Cony Poole WPtel: [address] [place], [place] [phone] UA 04/21/2019 Visit Diagnosis Plan: Stomatitis and mucositis with ch bry of taste Discussion: Diflucan and nystatin susp Discussed oral biopsy ICD-9 : 528.00 ICD-10 : K12.1 04/10/2019 Appointment: Cony Poole WPtel: [address] [place], [place] [phone] ACUTE ILLNESS 04/10/2019 Patient Education: nystatin- OptimizeRX Coupon [id number] 9 https://www.relocality/[facility]/resources/getResource/61/8kcwlk90-25r2-2710-wn Completed 04/10/2019 Appointment: Cony Poole WPtel: [address] [place], [place] [phone] US INJECTION 03/02/2019 Patient Education: INFLUENZA VACCINE [...] : R35.1 02/16/2019 Appointment: Cony Poole WPtel: [address] [place], [place] [phone] ACUTE ILLNESS 02/16/2019 Appointment: Cony Poole WPtel: [phone] [phone] NO SHOW - FORGIVEN 02/15/2019 Appointment: Cony Poole WPtel: [phone] [phone] US BP CHECK 01/24/2019 Visit Diagnosis Plan: Acute upper respiratory infectio n, unspecified Discussion: cefdinir bid for 7 days. instructed to continue with allergy medications daily. call or rtc with new or worsening symptoms. ICD-9 : 465.9 ICD-10 : J06.9 12/20/2018 Appointment: Apoorva Rueda [address] [place] [address] ACUTE ILLNESS 12/20/2018 Visit Diagnosis Plan: Impacted cerumen, right ear Disc ussion: ear canal cleaned out with lavage. patient tolerated well and had immediate relief of hearing loss. no issues voiced. ICD-9 : 380.4 ICD-10 : H61.21 12/14/2018 Appointment: Apoorva Rueda [address] [place] [address] ACUTE ILLNESS 12/14/2018 Visit Diagnosis Plan: Essential [...] : I48.0 12/12/2018 Appointment: Cony Poole WPtel: [phone] [phone] FOLLOW UP 12/12/2018 Visit Diagnosis Plan: Essential (primary) hypertension Discussion: Stable Patient sees cardiology next week--has been off sotalol since 09/15/18 and BP and pulse have been stable ICD-9 : 401.9 ICD-10 : I10 10/19/2018 Appointment: Cony Poole WPtel: [address] [place], [place] [phone] FOLLOW UP 10/19/2018 Appointment: Cony Poole WPtel: [phone] [phone] US BP CHECK 10/13/2018 Visit Diagnosis Plan: Allergic rhinitis due to pollen Discussion: Continue zyrtec ICD-9 : 477.9 ICD-10 : J30.1 10/05/2018 Visit Diagnosis Plan: Essential (primary) hypertension Discussion: Stable Recheck 2 weeks ICD-9 : 401.9 ICD-10 : I10 10/05/2018 Appointment: Cony Poole WPtel: [facility]6 [phone] FOLLOW UP 10/05/2018 Patient Education: Synthroid- OptimizeRX Coupon [id number] https://www.relocality/[facility]/resources/getResource/61/mao01754-j952-3787-71 Completed 10/05/2018 Visit Diagnosis Plan: Allergic rhinitis due to pollen Discussion: Continue zyrtec Finish prednisone ICD-9 : 477.9 ICD-10 : J30.1 09/28/2018 Visit Diagnosis Plan: Hematuria, unspecified Discussio n: Recheck UA with microscopy in 1 week then fwup ICD-9 : 599.70 ICD-10 : R31.9 09/28/2018 Appointment: Cony Poole WPtel: [facility]7 [phone] US FOLLOW UP 09/28/2018 Visit Diagnosis Plan: Allergic rhinitis due to pollen Discussion: Check CBC now May do low dose prednisone pending lab Recheck 2 days ICD-9 : 477.9 ICD-10 : J30.1 09/26/2018 Visit Diagnosis Plan: Slow transit constipation Discus jaelyn: Glycerin Suppository prn Miralax samples given today to use one daily ICD-9 : 564.01 ICD-10 : K59.01 09/26/2018 Appointment: Cony Poole WPtel: [phone] [phone] FOLLOW UP 09/26/2018 Visit Diagnosis Plan: [...] ICD-10 : J20.9 09/23/2018 Appointment: Merry Diaz [facility] [employer] [address] FOLLOW UP 09/23/2018 Patient Education: cefdinir- OptimizeRX Coupon [id number] https://www.relocality/[facility]/resources/getResource/61/2wb0x6vp-6132-3g13-f8 Completed 09/23/2018 Visit Diagnosis Plan: Acute bronchitis, unspecified Di scussion: Rocephin today Go for CXR Flu negative Recheck tomorrow ICD-9 : 466.0 ICD-10 : J20.9 09/22/2018 Appointment: Cony Poole WPtel: [facility]0 [phone] FOLLOW UP 09/22/2018 Visit Diagnosis Plan: Tachycardia, [...] ICD-10 : R30.0 09/20/2018 Appointment: Merry Diaz [facility] [employer] [address] ACUTE ILLNESS 09/20/2018 Visit Diagnosis Plan: Other fatigue Discussion: Hold s otalol Add B12 500mcg daily as B12 in low normal range Fwup 1 week ICD-9 : 780.79 ICD-10 : R53.83 09/15/2018 Visit Diagnosis Plan: Hypothyroidism, unspecified Disc ussion: Decrease Synthroid to 50mcg daily ICD-9 : 244.9 ICD-10 : E03.9 09/15/2018 Appointment: Cony Poole WPtel: [address] [place], [place] [phone] FOLLOW UP 09/15/2018 Appointment: Cony Poole WPtel: [address] [place], [place] [address] UA 09/14/2018 Visit Diagnosis Plan: Chronic fatigue, unspecified Dis cussion: I think her sotalol may be a big factor so will start with updated lab and if it is normal then will hold sotalol and fwup in 1 week ICD-9 : 780.79 ICD-10 : R53.82 09/08/2018 Appointment: Cony Poole WPtel: [address] [place], [place] [address] ACUTE ILLNESS 09/08/2018 Visit Diagnosis Plan: Dysuria Discussion: UA- positive for leuks, hematuria, nitrates. Will start patient on Macrobid and culture urine. Will call patient with results of culture. RTC with worsening symptoms, including fever, increased pain, abdominal pain. Patient states understanding. ICD-9 : 788.1 ICD-10 : R30.0 09/05/2018 Appointment: Merry Diaz [facility] [facility]66[facility] ACUTE ILLNESS 09/05/2018 Care Plan: RML ASSAY THYROID STIM HORMONE Pending 05/26/2018 Care Plan: RML ASSAY OF FREE THYROXINE Pe nding 05/26/2018 Appointment: Cony Poole WPtel: [address] [place], [place] [phone] UA 04/20/2018 Appointment: Con[facility] Poole WPtel: [phone] [phone] BP CHECK 04/13/2018 Visit Diagnosis Plan: Impacted cerumen, right ear Disc ussion: cerumen removed with irrigation and lavage. patient tolerated well and had immediate relief. ICD-9 : 380.4 ICD-10 : H61.21 03/18/2018 Appointment: Apoorva Rueda [address] ACUTE ILLNESS 03/18/2018 Patient Education: Patient Medication [...] : I10 03/03/2018 Appointment: Cony Poole WPtel: [phone] [phone] FOLLOW UP 03/03/2018 Patient Education: Patient Medication Summary Completed 03/03/2018 Visit Diagnosis Plan: Atopic dermatitis, unspecified D iscussion: instructed to apply triamcinolone bid for 2 weeks, until follow up. follow with your normal lotion and cover with compression hose. if worsening or no improvement, call clinic. ICD-9 : 691.8 ICD-10 : L20.9 02/16/2018 Appointment: Apoorva Rueda 504 [facility] ACUTE ILLNESS 02/16/2018 Patient Education: Patient Medication [...] ICD-10 : L89.611 01/26/2018 Appointment: Apoorva Rueda [address] [place] [address] ACUTE ILLNESS 01/26/2018 Patient Education: Patient Medication [...] : I10 11/30/2017 Appointment: Cony Poole WPtel: [facility]4 [address] FOLLOW UP 11/30/2017 Patient Education: Patient Medication Summary Completed 11/30/2017 Visit Diagnosis Plan: Other seborrheic keratosis Discu ssion: Monitor ICD-9 : 702.19 ICD-10 : L82.1 11/04/2017 Appointment: Cony Poole WPtel: [facility]1 [place] [phone] [place] Consult 11/04/2017 Patient Education: Patient Medication Summary Completed 11/04/2017 Visit Diagnosis Plan: Achilles tendinitis, right leg D iscussion: educated patient on RICE and the importance of performing all these activities. 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 instructed patient ok to wear over jennifer hose and to wear during day and [...] : M76.61 10/20/2017 Appointment: Apoorva Rueda 504 [facility] ACUTE ILLNESS 10/20/2017 Patient Education: Patient Medication Summary Completed 10/20/2017 Visit Diagnosis Plan: Essential (primary) hypertension Discussion: Stable ICD-9 : 401.9 ICD-10 : I10 08/30/2017 Visit Diagnosis Plan: Weakness Discussion: Check Cervi gerri spine x-ray due to primarily being in upper arms ICD-9 : 780.79 ICD-10 : R53.1 08/30/2017 Appointment: Cony Poole WPtel: [phone] [phone] FOLLOW UP 08/30/2017 Patient Education: Patient Medication Summary Completed 08/30/2017 Care Plan: X-RAY EXAM NECK SPINE 4/5VWS LOINC : 04662-4 Pending 08/30/2017 Patient Education: Patient Medication Summary Completed 08/13/2017 Care Plan: DXA BONE DENSITY AXIAL LOINC : 59413-9 Pending 08/13/2017 Patient Education: Patient Medication Summary Completed 07/01/2017 Care Plan: RML COMPREHEN METABOLIC PANEL LOINC : 11371-4 Pending 07/01/2017 Care Plan: RML ASSAY THYROID STIM HORMONE Pending 07/01/2017 Care Plan: RML ASSAY OF FREE THYROXINE Pe nding 07/01/2017 Care Plan: RML LIPID PANEL LOINC : 98917 -1 Pending 07/01/2017 Care Plan: CBC Pending [...] : E03.9 05/25/2017 Appointment: Cony Poole WPtel: [phone] [phone] [place] FOLLOW UP 05/25/2017 Patient Education: Patient [...] : I10 03/22/2017 Appointment: Cony Poole WPtel: [phone] [phone] US FOLLOW UP 03/22/2017 Patient Education: Patient Medication Summary Completed 03/22/2017 Patient Education: Patient Medication Summary Completed 03/17/2017 Care Plan: RML ASSAY THYROID STIM HORMONE Pending 03/17/2017 Care Plan: RML ASSAY OF FREE THYROXINE Pe nding 03/17/2017 Care Plan: METABOLIC PANEL TOTAL CA LOIN C : 01579-9 Pending 03/17/2017 Appointment: Cony Poole WPtel: [phone] [phone] US INJECTION 03/08/2017 Patient Education: Patient Medication Summary Completed 03/08/2017 Visit Diagnosis Plan: Hypothyroidism, unspecified Disc ussion: Increase synthroid to 75mcg daily and recheck 2mos Follow Up: 2 months ICD-9 : 244.9 ICD-10 : E03.9 01/18/2017 Visit Diagnosis Plan: Essential (primary) hypertension Discussion: Stable with current meds ICD-9 : 401.9 ICD-10 : I10 01/18/2017 Appointment: Cony Poole WPtel: [phone] [phone] US 8/10lm~sl FOLLOW UP 01/18/2017 Patient Education: Patient Medication Summary Completed 01/18/2017 Appointment: Cony Poole WPtel: [address] [place], [place] [phone] BP CHECK 01/11/2017 Patient Education: Patient Medication Summary Completed 01/11/2017 Patient Education: Patient Medication Summary Completed 01/11/2017 Care Plan: RML ASSAY THYROID STIM HORMONE Pending 01/11/2017 Care Plan: RML ASSAY OF FREE THYROXINE Pe nding 01/11/2017 Appointment: Cony Poole WPtel: [address] [place], [place] [phone] BP CHECK 01/04/2017 Patient Education: Patient Medication Summary Completed 01/04/2017 Appointment: Cony Poole WPtel: [address] [place], [place] [phone] BP CHECK 12/28/2016 Patient Education: Patient Medication Summary Completed 12/28/2016 Appointment: Cony Poole WPtel: [address] [place], [place] [phone] BP CHECK 12/24/2016 Patient Education: Patient Medication Summary Completed 12/24/2016 Visit Diagnosis Plan: Hypotension, unspecified Discuss ion: Hold carter fuentes Decrease HCTZ to 12.5mg q AM BP check in 1 week ICD-9 : 458.9 ICD-10 : I95.9 12/16/2016 Visit Diagnosis Plan: Localized edema Discussion: Decr ease HCTZ to 12.5mg q AM ICD-9 : 782.3 ICD-10 : R60.0 12/16/2016 Appointment: Cony Poole WPtel: [address] [place], [place] [phone] ACUTE ILLNESS 12/16/2016 Patient Education: Patient Medication [...] 244.9 ICD-10 : E03.9 11/18/2016 Appointment: Cony Poole WPtel: [phone] [phone] 11/17 lm ~sl 11/18 confirmed~sl FOLLOW UP Patient Education: Patient Medication Summary Completed 11/18/2016 Visit Diagnosis Plan: Lymphangitis Discussion: No evid ence of cellulitis at this time so will continue JENNIFER hose and monitor ICD-9 : 457.2 ICD-10 [...] : E03.9 11/04/2016 Appointment: Cony Poole WPtel: [address] [place], [place] [phone] 11/03 confirmed `sl FOLLOW UP 11/04/2016 Patient Education: Patient Medication Summary Completed 11/04/2016 Visit Diagnosis Plan: Hypotension due to drugs Discuss ion: Hydrate Hold Losartan tonight then decrease to 50mg q HS BP check in 1 week ICD-9 : 458.8 ICD-10 : I95.2 10/27/2016 Appointment: Cony Poole WPtel: [facility]9 [phone] 10/26 Confirmed~sl FOLLOW UP 10/27/2016 Patient Education: Patient Medication Summary Completed 10/27/2016 Appointment: Cony Poole WPtel: [phone] [facility] 10/26/2016 Patient Education: Patient Medication Summary Completed 10/26/2016 Visit Diagnosis Plan: Cellulitis of left lower limb Di scussion: Finish Clindamycin Follow Up: 2 weeks ICD-9 : 682.6 ICD-10 : L03.116 10/13/2016 Appointment: Cony Poole WPtel: [phone] [phone] 08 lm-sp WORK IN 10/13/2016 Patient Education: Patient Medication Summary Completed 10/13/2016 Visit Diagnosis Plan: Cellulitis of left lower limb Di scussion: Change keflex to clindamycin Add prednisone Continue compression socks and elevate ICD-9 : 682.6 ICD-10 : L03.116 10/08/2016 Appointment: Cony Poole WPtel: [phone] [phone] US 10/07 lm~sl 10/08 confirmed`sl FOLLOW UP 10/08 [...] : L03.116 10/05/2016 Appointment: Cony Poole WPtel: [phone] [phone] US 10/01 confirmed `sl FOLLOW UP 10/05/2016 Patient [...] METABOLIC PANEL TOTAL CA LOIN C : 43098-5 Pending 09/30/2016 Visit Diagnosis Plan: Other fatigue [...] : I10 08/25/2016 Appointment: Cony Poole WPtel: [phone] [phone] [place] 08/24 confirmed~sl FOLLOW UP 08/25/2016 Patient Education: Patient Medication Summary Completed 08/25/2016 Appointment: Cony Poole WPtel: [phone] [phone] US 07/30 rescheduled~sl RESCHEDULED 08/19/2016 Patient Education: Patient Medication Summary Completed 08/19/2016 Care Plan: RML COMPREHEN METABOLIC PANEL LOINC : 19748-1 Pending 08/19/2016 Care Plan: CBC Pending 08/19/2016 [...] : I10 07/28/2016 Appointment: Cony Poole WPtel: [phone] [phone] 07/27 confirmed~ ACUTE ILLNESS 07/28/2016 Patient Education: Patient Medication Summary Completed 07/28/2016 Patient Education: Patient Medication Summary Completed 07/06/2016 Care Plan: RML ASSAY THYROID STIM HORMONE Pending 07/06/2016 Care Plan: RML ASSAY OF FREE THYROXINE Pe nding 07/06/2016 Appointment: Cony Poole WPtel: [phone] [phone] BP CHECK 06/25/2016 Patient Education: Patient Medication Summary Completed 06/25/2016 Patient Education: Patient Medication Summary Completed 06/25/2016 Care Plan: CBC Pending 06/25/2016 Care Plan: URINALYSIS [place] : [address]-1 Pending 06/25/2016 Visit Diagnosis Plan: Essential (primary) hypertension Discussion: Discussed with Dr Poole Increase HCTZ as above Check CMP in 1-2 weeks Patient to call Dr Noble for follow up with him, 1-2 weeks and management of her HTN ICD-9 : 401.9 ICD-10 : I10 06/23/2016 Appointment: Merle Hernandez [address] [place], [place] [phone] ACUTE ILLNESS 06/23/2016 Patient Education: Patient Medication [...] plan and agrees 06/03/2016 Appointment: Merle Hernandez [address] [place], [place] [phone] ACUTE ILLNESS 06/03/2016 Patient Education: Patient Medication Summary Completed 06/03/2016 Visit Plan: Exam is fairly benign Flu ra n since her symptoms had such a sudden onset - results negative Likely viral URI Supportive care reviewed Monitor closely Follow up PRN 05/26/2016 Appointment: Merle Hernandez [phone] [facility] ACUTE ILLNESS 05/26/2016 Patient Education: Patient Medication Summary Completed 05/26/2016 Visit Plan: Continue current meds and mo nitor BP Continue temazepam at current dose--discussed risks but patient feels much better since getting good rest Check CBC, CMP, TSH, Free T4 05/20/2016 Appointment: Cony Poole WPtel: [address] [place], [place] [phone] 05/19 confirmed~sl FOLLOW UP 05/20/2016 Patient Education: Patient Medication Summary Completed 05/20/2016 Appointment: Cony Poole WPtel: [address] [place], [place] [phone] CANCELED 04/07/2016 Visit Plan: Check right ankle x-ray Disc ussed may need veins in right ankle worked on if swelling/pain persist 03/19/2016 Appointment: Cony Poole WPtel: [address] [place], [place] [phone] ACUTE ILLNESS 03/19/2016 Patient Education: Patient Medication Summary Completed 03/19/2016 Visit Plan: Increase HCTZ to 12.5mg po e very day Recheck Chem [address] Noble next week to discuss antiarrhythmic meds Prevnar 13 today 01/13/2016 Appointment: Cony Poole WPtel: [address] [place], [place] [phone] 01/08 confirmed-sp FOLLOW UP 01/13/2016 Patient Education: Patient Medication Summary Completed 01/13/2016 Visit Plan: Continue current meds and mo nitor BP Check Chem 7 12/12/2015 Appointment: Cony Poole WPtel: [phone] [phone] US 7/6confirmed sl FOLLOW UP 12/12/2015 Patient Education: Patient Medication Summary Completed 12/12/2015 Appointment: Cony Poole WPtel: [phone] US RESCHEDULED 12/10/2015 Visit Plan: Add Restoril 15mg q HS--stuart ent used in hospital with no complications Add back low dose HCTZ at 12.5mg every other day Monitor BP Can hold on nebulizer treatments Check Chem 7 now and recheck 1week 12/05/2015 Appointment: Cony Poole WPtel: [phone] 12/02 confirmed~sl ER Follow UP 12/05/2015 Patient Education: Patient Medication Summary Completed 12/05/2015 Appointment: Cony Poole WPtel: [address] [place], [place] [phone] WORK IN 11/28/2015 Visit Plan: Due to patient's symptoms an d high blood pressure I consulted Outpatient orders written for 1L IV fluids with 1G Rocephin and Zofran for nausea. Patient sent to hospital and followup in am. 11/27/2015 Appointment: Cony Poole WPtel: [address] [place], [place] [phone] UA 11/27/2015 Patient Education: Patient Medication Summary Completed 11/27/2015 Appointment: Cony Poole WPtel: [phone] LAB 11/25/2015 Patient Education: Patient Medication Summary Completed 11/25/2015 Care Plan: RML COMPREHEN METABOLIC PANEL LOINC : 99523-3 Pending 11/25/2015 Care Plan: RML ASSAY THYROID [...] potassium depletion Get with us rita on scan coordinator she would like to see Keep BP log and follow up PRN 10/21/2015 Appointment: Merle Hernandez [address] [place], [place] [phone] ACUTE ILLNESS 10/21/2015 Patient Education: Patient Medication Summary Completed 10/21/2015 Visit Plan: Stop amlodopine Increase met oprolol to to 50mg q HS and 25mg in AM Switch cozaar to 100mg daily as the insurance does not want to pay for 50mg BID dosing Low Na diet and elevate legs See Cardiology 10/17/2015 Appointment: Cony Poole WPtel: [phone] [phone] onfirm~sl FOLLOW UP 10/17/2015 Patient Education: Patient Medication Summary Completed 10/17/2015 Visit Plan: Pt to bring in home BP/HR lo g for review Orders given for CBC, CMP, TSH, MG and 48 holter for further evaluation 10/07/2015 Appointment: Merle Hernandez [address] [place], [place] [id number] ACUTE ILLNESS 10/07/2015 Patient Education: Patient Medication Summary Completed 10/07/2015 Visit Plan: Cold vs Allergies Continue z yrtec and nasacort Add steroid pack as above Add plain mucinex, nasal rinses, vicks, humidifier, etc Call if not improving or if worsening - will likely add zpak 09/03/2015 Appointment: Merle Hernandez [address] [place], [place] [id number] ACUTE ILLNESS 09/03/2015 Patient Education: Patient Medication Summary Completed 09/03/2015 Visit Plan: BP values reviewed Change me toprolol to 12.5mg po BID BP values in 1month 08/01/2015 Appointment: Cony Poole WPtel: [phone] [id number] 07/31 confirmed-SP FOLLOW UP 08/01/2015 Patient Education: Patient Medication Summary Completed 08/01/2015 Visit Plan: Had lab in the fall--shanelle smith copy and plan on repeat lab 6mos from last lab then fwup after that Continue current meds Mammogram up-to-date 06/27/2015 Appointment: Cony Poole WPtel: [phone] [id number] 06/26/15 appt confirmed cn NEW PATIENT 06/27 Patient Education: Patient Medication Summary Completed 06/27/2015 Referral: Donald Noble WPtel: [facility] [address] [id number] US Referral Initiated Instructions Comment Date . [...] Add Restoril 15mg q HS--patient used i [facility] with no complications Add back low dose [...] potassium depletion Get with us rita on scan coordinator she would like to see Keep BP [...]
--- OUTSIDE RECORDS SUMMARY | 2022-11-09 15:27 | XMS REPORT | CCD ---
Author Author Tanna Poole D.O. Organization [facility] Address [address] [place] [phone] Phone Care Team Providers Care [employer]ator Name Role Phone Cony Poole D.O. PP Unavailable CCM Unavailable Summary Purpose Interface Exchange Insurance Providers Payer name Policy type / Coverage type Covered democrat ID Effective Begin Date Effective End Date WPS MEDICARE PART B [place] Medicare Part B [id number] 2017 Unknown [facility] Medicare Part B [id number] Un known Family history Sister Diagnosis Age [...] Unknown Retired 06/27/[address]: 1037404 Former smoker quit 1986 06/27/[address]: 185499355 Never drinks alcohol 2015 Has the patient [...] Start Date Stop Date Status Fill Instructions sertraline 25 mg tablet RxNorm: 416545 1/2 Tablet(s) Oral QPM r eplaces effexor 10/05/2022 01/02/2023 Active sertraline 25 mg tablet RxNorm: 304038 1/2 Tablet(s) Oral QPM r eplaces effexor 10/05/2022 10/05/2022 Inactive Synthroid 75 mcg tablet RxNorm: 854557 TAKE 1 TABLET BY MOUTH WEDNESDAY, WEDNESDAY, Wednesday10/05/2022 03/21/2023 Active Effexor XR 37.5 mg capsule,extended release RxNorm: 520078 Take 1 Capsule(s) Oral QPM for mood 10/01/2022 10/04/2022 Inactive losartan 50 mg tablet RxNorm: 374453 Take 1 Tablet(s) Oral two times a day 09/16/2022 03/14/2023 Active Synthroid 75 mcg tablet RxNorm: 340412 Take 1 Tablet(s) Oral MWF 11/25/2022 Active Synthroid 88 mcg tablet RxNorm: 365464 Take 1 Tablet(s) Oral QD Tu, Th, Sa, [place] 08/28/2022 11/25/2022 Active Synthroid 88 mcg tablet RxNorm: 770996 Take 1 Tablet(s) Oral QD Tu, Th, Sa, [place] 08/25/2022 08/25/2022 Inactive Synthroid 75 mcg tablet RxNorm: 260251 Take 1 Tablet(s) Oral MWF 08/25/2022 Inactive Synthroid 75 mcg tablet RxNorm: 884805 Take 1 Tablet(s) Oral [facility] 08/24/2022 Inactive hydralazine 10 mg tablet RxNorm: 680550 Take 1 Tablet(s) Oral t wo times a day 07/28/2022 10/25/2022 Active metoprolol succinate ER 100 mg tablet,extended release 24 hr RxNorm: 332467 Take 1 Tablet(s) Oral QPM 07/28/2022 07/28/2022 Inactive Synthroid 88 mcg tablet RxNorm: 053685 Take 1 Tablet(s) Oral QD Wednesday-Wednesday07/28/2022 08/24/2022 Inactive Synthroid 75 mcg tablet RxNorm: 205775 Take 1 Tablet(s) Oral QA M Sat/Sun 07/28/2022 08/24/2022 Inactive losartan 50 mg tablet RxNorm: 445854 1 Tablet(s) Oral two times a day 07/28/2022 07/28/2022 Inactive Zithromax Z-Topher 250 mg tablet RxNorm: 284938 Take 2 Tab let(s) Oral QD x1 dose then 1 daily 07/14/2022 07/18/2022 Inactive losartan 50 mg tablet RxNorm: 116104 TAKE ONE TABLET BY MOUTH DAILY 07/14/2022 07/27/2022 Inactive Synthroid 88 mcg tablet RxNorm: 986830 Take 1 Tablet(s) Oral QD Wednesday-Wednesday06/23/2022 07/27/2022 Inactive Synthroid 75 mcg tablet RxNorm: 925851 Take 1 Tablet(s) Oral QA M Sat/Sun 06/23/2022 07/27/2022 Inactive Xarelto 15 mg tablet RxNorm: 8827421 Take 1 Tablet(s) Oral QD 06/0906/09/2022 Inactive atorvastatin 20 mg tablet RxNorm: 443015 Take 1 Tablet(s) Oral QD 0 06/09/2022 06/09/2022 Inactive metoprolol succinate ER 100 mg tablet,extended release 24 hr RxNorm: 786409 Take 1 Tablet(s) Oral QD 06/09/2022 06/09/2022 Inactive budesonide 0.5 mg/2 mL suspension for nebulization RxNorm: 3 00658 USE 1 VIAL IN NEBULIZER TWICE DAILY (RINSE MOUTH AFTER EACH TREATMENT) 05/29/2022 No Stop Date Active Perforomist 20 mcg/2 mL solution for nebulization RxNorm: 12 13355 USE 1 VIAL IN NEBULIZER TWICE DAILY (MORNING AND EVENING) 05/29/2022 No Stop Date Acti ve Perforomist 20 mcg/2 mL solution for nebulization RxNorm: 12 43721 USE 1 VIAL IN NEBULIZER TWICE DAILY - morning and evening 05/26/2022 05/26/2022 Inac tive Perforomist 20 mcg/2 mL solution for nebulization RxNorm: 12 58646 USE 1 VIAL IN NEBULIZER TWICE DAILY - morning and evening 05/26/2022 05/26/2022 Inac tive budesonide 0.5 mg/2 mL suspension for nebulization RxNorm: 3 57191 USE 1 VIAL IN NEBULIZER TWICE DAILY - rinse mouth after treatment 05/26/2022 05/26/20 Inactive albuterol sulfate 2.5 mg/3 mL (0.083 %) solution for n ebulization RxNorm: 459239 USE 1 VIAL IN NEBULIZER DAILY - for rescue 05/26/2022 05/26/2022 Inactive budesonide 0.5 mg/2 mL suspension for nebulization RxNorm: 3 42081 USE 1 VIAL IN NEBULIZER TWICE DAILY - rinse mouth after treatment 05/26/2022 05/26/20 22 Inactive budesonide 0.5 mg/2 mL suspension for nebulization RxNorm: 3 22178 USE 1 VIAL IN NEBULIZER TWICE DAILY - rinse mouth after treatment 05/26/2022 05/26/20 22 Inactive losartan 50 mg tablet RxNorm: 751734 Take 1 Tablet(s) Oral two times a day 05/25/2022 05/25/2022 Inactive Synthroid 88 mcg tablet RxNorm: 972177 Take 1 Tablet(s) Oral QD 03/202206/22/2022 Inactive Astepro Allergy 205.5 mcg (0.15 %) nasal spray RxNorm: 14870 84 Take 1 Drasco Nasal two times a day in each nostril 03/19/2022 No Stop Date Active Perforomist 20 mcg/2 mL solution for nebulization RxNorm: 12 45246 USE 1 VIAL IN NEBULIZER TWICE DAILY - morning and evening 02/17/2022 02/17/2022 Inac tive Xarelto 15 mg tablet RxNorm: 3444225 Take 1 Tablet(s) Oral QD 02/1706/09/2022 Inactive budesonide 0.5 mg/2 mL suspension for nebulization RxNorm: 3 27506 USE 1 VIAL IN NEBULIZER TWICE DAILY - rinse mouth after treatment 02/05/2022 02/06/20 22 Inactive Perforomist 20 mcg/2 mL solution for nebulization RxNorm: 12 99994 USE 1 VIAL IN NEBULIZER TWICE DAILY - morning and evening 02/05/2022 02/05/2022 Inac tive albuterol sulfate 2.5 mg/3 mL (0.083 %) solution for n ebulization RxNorm: 732602 USE 1 VIAL IN NEBULIZER DAILY - for rescue 02/05/2022 02/05/2022 Inactive ipratropium bromide 0.02 % solution for inhalation RxNorm: 8 81413 USE 1 VIAL IN NEBULIZER EVERY 4 HOURS - and as needed 02/05/2022 02/16/2022 Inactive albuterol sulfate HFA 90 mcg/actuation aerosol inhaler RxNor m: 1016230 Take 2 Puff(s) Inhalation Q4H as needed as needed 01/27/2022 No Stop Date Activ e Synthroid 88 mcg tablet RxNorm: 672826 Take 1 Tablet(s) Oral QD 01/26/2022 Inactive BRAND NAME ONLY losartan 50 mg tablet RxNorm: 960785 TAKE ONE TABLET BY MOUTH DAILY , REPLACES 25MG DOSE 01/15/2022 07/13/2022 Inactive Symbicort 160 mcg-4.5 mcg/actuation HFA aerosol inhaler RxNo rm: 1914788 2 Puff(s) Inhalation two times a day 10/30/2021 11/28/2021 Inactive Symbicort 160 mcg-4.5 mcg/actuation HFA aerosol inhaler RxNo rm: 0733769 2 Puff(s) Inhalation two times a day 10/30/2021 10/30/2021 Inactive Synthroid 88 mcg tablet RxNorm: 688223 Take 1 Tablet(s) Oral QD 10/29/2021 Inactive Breo Ellipta 200 mcg-25 mcg/dose powder for inhalation RxNor m: 1572109 Inhale 1 Puff(s) Inhalation QD 10/29/2021 10/29/2021 Inactive Breo Ellipta 200 mcg-25 mcg/dose powder for inhalation RxNor m: 5064859 Inhale 1 Puff(s) Inhalation QD 10/29/2021 10/29/2021 Inactive replaces a dvair Flonase Allergy Relief 50 mcg/actuation nasal spray,suspensi on RxNorm: 8381716 2 Drasco Nasal every night at bedtime 10/28/2021 10/28/2021 Inactive Synthroid 88 mcg tablet RxNorm: 133215 Take 1 Tablet(s) Oral QD 10/28/2021 Inactive BRAND NAME ONLY fluticasone 113 mcg-salmeterol 14 mcg/actuation breath activated powdr RxNorm: 7899824 Inhale 1 Puff(s) Inhalation QAM 10/28/2021 10/28/2021 Inactive losartan 50 mg tablet RxNorm: 010866 1 Tablet(s) Oral QD replac es 25mg dose 10/20/2021 10/20/2021 Inactive metoprolol succinate ER 100 mg tablet,extended release 24 hr RxNorm: 168370 1 Tablet(s) Oral QD 09/23/2021 06/09/2022 Inactive potassium chloride ER 8 mEq capsule,extended release RxNorm: 430660 Take 1 Capsule(s) Oral QOD with lasix 09/15/2021 03/18/2022 Inactive Synthroid 88 mcg tablet RxNorm: 946989 Take 1 Tablet(s) Oral QD 12/202110/27/2021 Inactive BRAND NAME ONLY potassium chloride ER 8 mEq capsule,extended release RxNorm: 475952 1 Capsule(s) Oral QOD with lasix 09/11/2021 09/11/2021 Inactive metoprolol succinate ER 100 mg tablet,extended release 24 hr RxNorm: 538179 Take 1/2 Tablet(s) Oral QD 08/21/2021 09/22/2021 Inactive Synthroid 88 mcg tablet RxNorm: 472198 Take 1 Tablet(s) Oral QD 07/23/2021 Inactive BRAND NAME ONLY clindamycin HCl 300 mg capsule RxNorm: 060878 Take 1 Ca psule(s) Oral three times a day 07/03/2021 07/09/2021 Inactive clindamycin HCl 300 mg capsule RxNorm: 332841 Take 1 Ca psule(s) Oral three times a day 07/03/2021 07/03/2021 Inactive Synthroid 88 mcg tablet RxNorm: 441008 Take 1 Tablet(s) Oral QD 07/03/2021 Inactive BRAND NAME ONLY0 potassium chloride ER 8 mEq capsule,extended release RxNorm: 937876 1 Capsule(s) Oral QOD with lasix 06/26/2021 09/11/2021 Inactive potassium chloride ER 8 mEq tablet,extended release RxNorm: 427836 Take 2 Tablet(s) Oral two times a day 06/23/2021 06/25/2021 Inactive atorvastatin 20 mg tablet RxNorm: 836096 Take 1 Tablet(s) Oral QD 0 06/19/2021 06/09/2022 Inactive diltiazem CD 300 mg capsule,extended release 24 hr RxNorm: 8 38171 Take 1 Capsule(s) Oral QAM 06/19/2021 08/20/2021 Inactive potassium chloride ER 8 mEq tablet,extended release RxNorm: 053582 Take 2 Tablet(s) Oral two times a day 06/19/2021 06/23/2021 Inactive fluticasone 113 mcg-salmeterol 14 mcg/actuation breath activated powdr RxNorm: 7109632 Inhale 1 Puff(s) Inhalation QAM 06/19/2021 10/27/2021 Inactive furosemide 40 mg tablet RxNorm: 772731 Take 1 Tablet(s) Oral QAM 03/18/2022 Inactive alprazolam 0.25 mg tablet RxNorm: 538206 Take 1 Tablet(s) Oral Q8H as needed 06/19/2021 07/29/2021 Inactive gabapentin 100 mg capsule RxNorm: 445898 Take 2 Capsule (s) Oral every night at bedtime 06/19/2021 07/29/2021 Inactive losartan 25 mg tablet RxNorm: 284584 Take 1 Tablet(s) Oral QD 06/1910/20/2021 Inactive tramadol 50 mg tablet RxNorm: 346285 Take 1 Tablet(s) O ral three times a day as needed 06/19/2021 10/27/2021 Inactive Tylenol Arthritis Pain 650 mg tablet,extended release RxNorm : 7165002 Take 1 Tablet(s) Oral four times a day 05/05/2021 03/18/2022 Inactive Synthroid 88 mcg tablet RxNorm: 928284 Take 1 Tablet(s) Oral QD 04/30/2021 Inactive BRAND NAME ONLY0 Synthroid 88 mcg tablet RxNorm: 531661 1 Tablet(s) Oral QD 04/29/20 21 04/29/2021 Inactive Synthroid 88 mcg tablet RxNorm: 574767 1 Tablet(s) Oral QD 04/29/20 21 04/29/2021 Inactive magnesium oxide 400 mg (241.3 mg magnesium) tablet RxNorm: 1 24165 1 Tablet(s) Oral every night at bedtime 04/03/2021 No Stop Date Active Vitamin B12 1000mcg Tablet RxNorm: Take 1/2 Tablet(s) Oral QD 04/03/2021 No Stop Date Active aspirin 81 mg capsule RxNorm: 332870 1 Capsule(s) Oral QD No Stop Date Active doxazosin 1 mg tablet RxNorm: 229088 1 Tablet(s) Oral QPM 03/19/2021 04/02/2021 Inactive Cartia XT 240 mg capsule,extended release RxNorm: 056248 Take 1 Capsule(s) Oral QD 02/06/2021 06/18/2021 Inactive fluticasone propionate 50 mcg/actuation nasal spray,suspensi on RxNorm: 4273331 SHAKE LIQUID AND USE 2 SPRAYS IN EACH NOSTRIL EVERY NIGHT AT BEDTIME 12/19/2020 01/17/2021 Inactive diltiazem 120 mg tablet RxNorm: 708682 1 Tablet(s) Oral QD 12/12/1902/05/2021 Inactive Flonase Allergy Relief 50 mcg/actuation nasal spray,suspensi on RxNorm: 4065358 2 Drasco Nasal every night at bedtime 11/21/2020 11/21/2020 Inactive diltiazem 120 mg tablet RxNorm: 925969 Take 1 Tablet(s) Oral tw o times a day 11/11/2020 12/10/2020 Inactive oxybutynin chloride 5 mg tablet RxNorm: 755804 Take 1 T ablet(s) Oral every night at bedtime for overactive bladder 11/11/2020 11/11/2020 Inactive oxybutynin chloride 5 mg tablet RxNorm: 548576 Take 1 T ablet(s) Oral every night at bedtime for overactive bladder 11/11/2020 11/11/2020 Inactive oxybutynin chloride 5 mg tablet RxNorm: 519726 TAKE 1 T ABLET BY MOUTH EVERY NIGHT AT BEDTIME FOR OVERACTIVE BLADDER 11/11/2020 02/05/2021 Inactive Patient requests 90 days supply MagOx 400 mg (241.3 mg magnesium) tablet RxNorm: 066806 TAKE 1 TABLET BY MOUTH EVERY OTHER DAY 10/28/2020 02/05/2021 Inactive Synthroid 75 mcg tablet RxNorm: 611930 TAKE 1 TABLET BY MOUTH EVERY DAY DIRECTED 09/06/2020 04/29/2021 Inactive diltiazem CD 120 mg capsule,extended release 24 hr RxNorm: 8 38951 1 Tablet(s) Oral QD 09/05/2020 11/10/2020 Inactive Synthroid 75 mcg tablet RxNorm: 571893 TAKE 1 TABLET BY MOUTH EVERY DAY DIRECTED 09/03/2020 09/05/2020 Inactive Synthroid 75 mcg tablet RxNorm: 489844 TAKE 1 TABLET BY MOUTH EVERY DAY DIRECTED 09/03/2020 09/02/2020 Inactive MagOx 400 mg (241.3 mg magnesium) tablet RxNorm: 094581 1 Table t(s) Oral QOD 07/30/2020 11/10/2020 Inactive MagOx 400 mg (241.3 mg magnesium) tablet RxNorm: 428737 1 Table t(s) Oral QOD 07/29/2020 07/29/2020 Inactive diltiazem CD 120 mg capsule,extended release 24 hr RxNorm: 8 84815 1 Tablet(s) Oral two times a day 07/29/2020 09/04/2020 Inactive diltiazem CD 120 mg capsule,extended release 24 hr RxNorm: 8 67496 1 Tablet(s) Oral two times a day 07/04/2020 07/03/2020 Inactive diltiazem CD 120 mg capsule,extended release 24 hr RxNorm: 8 97043 1 Tablet(s) Oral two times a day 07/04/2020 07/28/2020 Inactive Eliquis 5 mg tablet RxNorm: 0131149 TAKE 1 TABLET BY MOUTH TWICE DAILY 06/10/2020 02/16/2022 Inactive diltiazem CD 120 mg capsule,extended release 24 hr RxNorm: 8 17503 TAKE 1 CAPSULE BY MOUTH DAILY 06/10/2020 06/09/2020 Inactive Eliquis 5 mg tablet RxNorm: 9779947 TAKE 1 TABLET BY MOUTH TWICE DAILY 06/10/2020 06/09/2020 Inactive diltiazem CD 120 mg capsule,extended release 24 hr RxNorm: 8 82237 TAKE 1 CAPSULE BY MOUTH DAILY 06/10/2020 07/03/2020 Inactive Synthroid 75 mcg tablet RxNorm: 588564 TAKE 1 TABLET BY MOUTH EVERY DAY DIRECTED 06/10/2020 09/02/2020 Inactive Flonase Allergy Relief 50 mcg/actuation nasal spray,suspensi on RxNorm: 7471965 2 Drasco Nasal every night at bedtime 04/26/2020 04/26/2020 Inactive Vitamin D3 25 mcg (1,000 unit) capsule RxNorm: 262705 3 Capsule (s) Oral QD 04/22/2020 No Stop Date Active MagOx 400 mg (241.3 mg magnesium) tablet RxNorm: 170289 1 Table t(s) Oral QOD 04/22/2020 04/21/2020 Inactive MagOx 400 mg (241.3 mg magnesium) tablet RxNorm: 906835 1 Table t(s) Oral QOD 04/22/2020 07/21/2020 Inactive prednisone 10 mg tablet RxNorm: 644439 1 Tablet(s) Oral two norma es a day 03/22/2020 03/27/2020 Inactive Eliquis 5 mg tablet RxNorm: 8778052 TAKE 1 TABLET BY MOUTH TWICE DAILY 03/15/2020 06/09/2020 Inactive Synthroid 75 mcg tablet RxNorm: 977560 TAKE 1 TABLET BY MOUTH EVERY DAY DIRECTED 03/15/2020 06/09/2020 Inactive furosemide 20 mg tablet RxNorm: 634003 1 Tablet(s) Oral QAM as needed 03/14/2020 06/20/2020 Inactive diltiazem CD 120 mg capsule,extended release 24 hr RxNorm: 8 10752 TAKE 1 CAPSULE BY MOUTH DAILY 03/14/2020 06/09/2020 Inactive amiodarone 200 mg tablet RxNorm: 624783 TAKE 1 TABLET BY MOUTH SIMON Y 03/14/2020 06/23/2020 Inactive potassium chloride ER 20 mEq tablet,extended release RxNorm: 306398 1 Tablet(s) Oral two times a day as needed 02/29/2020 06/20/2020 Inactive furosemide 20 mg tablet RxNorm: 890210 1 Tablet(s) Oral QAM as needed 02/29/2020 03/13/2020 Inactive Macrobid 100 mg capsule RxNorm: 552366 1 Capsule(s) Oral two ti mes a day 02/15/2020 02/18/2020 Inactive Macrobid 100 mg capsule RxNorm: 251364 1 Capsule(s) Oral two ti mes a day 02/15/2020 02/14/2020 Inactive magnesium oxide 400 mg (241.3 mg magnesium) tablet RxNorm: 1 49486 TAKE 1/2 TABLET BY MOUTH EVERY DAY 01/30/2020 02/21/2020 Inactive Flonase Allergy Relief 50 mcg/actuation nasal spray,suspensi on RxNorm: 2780654 2 Drasco Nasal every night at bedtime 01/22/2020 04/25/2020 Inactive furosemide 20 mg tablet RxNorm: 014162 1 Tablet(s) Oral QOD 020 02/12/2020 Inactive potassium chloride ER 20 mEq tablet,extended release RxNorm: 836794 1 Tablet(s) Oral two times a day 01/04/2020 02/12/2020 Inactive potassium chloride ER 20 mEq tablet,extended release RxNorm: 311693 TAKE 1 TABLET BY MOUTH TWICE DAILY 01/03/2020 01/03/2020 Inactive diltiazem CD 120 mg capsule,extended release 24 hr RxNorm: 8 87666 1 Capsule(s) Oral QD 12/26/2019 03/13/2020 Inactive Colace 100 mg capsule RxNorm: 2189222 2 Capsule(s) Oral QD 12/26/1903/18/2022 Inactive Flonase Allergy Relief 50 mcg/actuation nasal spray,suspensi on RxNorm: 8338592 2 SPRAY NASAL QHS 12/26/2019 12/28/2019 Inactive amiodarone 200 mg tablet RxNorm: 145188 1 Tablet(s) Oral QD 020 01/21/2020 Inactive Eliquis 5 mg tablet RxNorm: 6606138 1 Tablet(s) Oral two times a da y 12/26/2019 03/14/2020 Inactive potassium chloride ER 20 mEq tablet,extended release RxNorm: 251965 2 Tablet(s) Oral QD with furosemide 12/20/2019 01/21/2020 Inactive furosemide 20 mg tablet RxNorm: 365325 1 Tablet(s) Oral QAM 020 01/18/2020 Inactive Synthroid 75 mcg tablet RxNorm: 920765 1 Tablet(s) Oral QD 12/18/19 20 02/16/2020 Inactive potassium chloride ER 20 mEq tablet,extended release RxNorm: 365683 2 Tablet(s) Oral QOD with furosemide 11/29/2019 12/19/2019 Inactive furosemide 40 mg tablet RxNorm: 986852 1 Tablet(s) Oral QOD 020 12/19/2019 Inactive amlodipine 5 mg tablet RxNorm: 216528 1 Tablet(s) Oral every ni ght at bedtime 11/27/2019 12/18/2019 Inactive Lasix 40 mg tablet RxNorm: 866892 1 Tablet(s) Oral QAM 11/23/2019 Inactive potassium chloride ER 20 mEq tablet,extended release RxNorm: 19800612 TAKE 1 TABLET BY MOUTH TWICE DAILY 1 Tablet(s) Oral QD 11/23/2019 02/12/2020 Inactive Lasix 40 mg tablet RxNorm: 887914 1 Tablet(s) Oral QAM 11/23/2019 Inactive potassium chloride ER 20 mEq tablet,extended release RxNorm: 19800612 TAKE 1 TABLET BY MOUTH TWICE DAILY 1 Tablet(s) Oral QD 11/23/2019 11/22/2019 Inactive cefdinir 300 mg capsule RxNorm: 647279 1 Capsule(s) Oral two ti mes a day 11/09/2019 11/16/2019 Inactive temazepam 15 mg capsule RxNorm: 205444 TAKE 1 CAPSULE B Y MOUTH EVERY NIGHT AT BEDTIME 11/06/2019 12/18/2019 Inactive magnesium oxide 400 mg (241.3 mg magnesium) tablet RxNorm: 1 74196 TAKE 1/2 TABLET BY MOUTH EVERY DAY 11/03/2019 2020 Inactive Synthroid 75 mcg tablet RxNorm: 520931 TAKE 1 TABLET BY MOUTH E 10/16/2019 12/17/2019 Inactive potassium chloride ER 20 mEq tablet,extended release RxNorm: 356125 TAKE 1 TABLET BY MOUTH TWICE DAILY 10/02/2019 11/28/2019 Inactive baclofen 10 mg tablet RxNorm: 088452 1/2-1 Tablet(s) Or al QPM as needed for muscle spasm 09/21/2019 01/21/2020 Inactive hydrochlorothiazide 25 mg tablet RxNorm: 380560 TAKE 1 TABLET BY MOUTH EVERY MORNING 09/21/2019 11/26/2019 Inactive amlodipine 5 mg tablet RxNorm: 969184 TAKE 1 TABLET BY MOUTH TW ICE DAILY 09/06/2019 11/27/2019 Inactive magnesium oxide 400 mg (241.3 mg magnesium) tablet RxNorm: 1 71698 TAKE 1/2 TABLET BY MOUTH EVERY DAY 09/06/2019 11/02/2019 Inactive temazepam 15 mg capsule RxNorm: 886989 TAKE 1 CAPSULE B Y MOUTH EVERY DAY AT BEDTIME 09/04/2019 11/05/2019 Inactive baclofen 10 mg tablet RxNorm: 301222 1/2-1 Tablet(s) Or al QPM as needed for muscle spasm 08/25/2019 09/20/2019 Inactive Synthroid 75 mcg tablet RxNorm: 766032 TAKE 1 TABLET BY MOUTH E 08/17/2019 10/15/2019 Inactive Cytomel 5 mcg tablet RxNorm: 527443 TAKE 1 TABLET BY MOUTH EVERY DA Y 08/13/2019 01/21/2020 Inactive potassium chloride ER 20 mEq tablet,extended release RxNorm: 838555 TAKE 1 TABLET BY MOUTH TWICE DAILY 07/06/2019 10/01/2019 Inactive Synthroid 75 mcg tablet RxNorm: 463606 1 Tablet(s) Oral QD Recheck labs in 2 months 06/21/2019 08/16/2019 Inactive Recheck labs in 2 months Synthroid 75 mcg tablet RxNorm: 500455 1 Tablet(s) Oral QD Recheck labs in 2 months 06/21/2019 06/20/2019 Inactive Recheck labs in 2 months amlodipine 5 mg tablet RxNorm: 899256 TAKE 1 TABLET BY MOUTH TW ICE DAILY 06/11/2019 09/05/2019 Inactive Diflucan 100 mg tablet RxNorm: 990372 1 Tablet(s) Oral QD 05/29/2019 06/04/2019 Inactive Zithromax Z-Topher 250 mg tablet RxNorm: 267174 Tablet(s) Oral as directed 05/29/2019 05/28/2019 Inactive Zithromax Z-Topher 250 mg tablet RxNorm: 417944 Tablet(s) Oral as directed 05/29/2019 05/29/2019 Inactive Diflucan 100 mg tablet RxNorm: 674375 1 Tablet(s) Oral QD 05/29/2019 05/28/2019 Inactive cefdinir 300 mg capsule RxNorm: 601361 1 Capsule(s) Oral two ti mes a day 05/19/2019 05/22/2019 Inactive Synthroid 50 mcg tablet RxNorm: 826621 1 TABLET(S) PO QD 05/18/2019 0 06/20/2019 Inactive lab draw in 2 months to recheck thyroid temazepam 15 mg capsule RxNorm: 003146 TAKE 1 CAPSULE B Y MOUTH EVERY DAY AT BEDTIME 05/18/2019 07/16/2019 Inactive Cytomel 5 mcg tablet RxNorm: 284138 1 Tablet(s) Oral QD 05/18/2019 Inactive cefdinir 300 mg capsule RxNorm: 266206 1 Capsule(s) Oral two ti mes a day 05/18/2019 05/18/2019 Inactive magnesium oxide 400 mg (241.3 mg magnesium) tablet RxNorm: 1 80249 1/2 TABLET(S) PO QD 05/10/2019 05/10/2019 Inactive temazepam 15 mg capsule RxNorm: 355897 TAKE 1 CAPSULE B Y MOUTH EVERY DAY AT BEDTIME 05/09/2019 05/16/2019 Inactive magnesium oxide 400 mg (241.3 mg magnesium) tablet RxNorm: 1 79772 1/2 TABLET(S) PO QD 05/02/2019 05/09/2019 Inactive nystatin 100,000 unit/mL oral suspension RxNorm: 507174 5 Milliliter(s) Oral four times a day 04/24/2019 05/07/2019 Inactive cephalexin 500 mg capsule RxNorm: 180770 1 Capsule(s) Oral thre e times a day 04/21/2019 04/27/2019 Inactive cephalexin 500 mg capsule RxNorm: 157128 1 Capsule(s) Oral thre e times a day 04/21/2019 04/20/2019 Inactive potassium chloride ER 20 mEq tablet,extended release RxNorm: 069330 1 Tablet(s) Oral two times a day 04/10/2019 07/05/2019 Inactive Patient r equests 90 days supplyPatient requests 90 days supply nystatin 100,000 unit/mL oral suspension RxNorm: 394288 5 Milliliter(s) Oral four times a day 04/10/2019 04/23/2019 Inactive Diflucan 100 mg tablet RxNorm: 328284 1 Tablet(s) Oral QD 04/10/2019 04/17/2019 Inactive temazepam 15 mg capsule RxNorm: 394360 TAKE 1 CAPSULE B Y MOUTH EVERY DAY AT BEDTIME 04/04/2019 05/03/2019 Inactive Synthroid 50 mcg tablet RxNorm: 166871 1 TABLET(S) PO QD 04/04/2019 1 07/18/2018 Inactive lab draw in 2 months to recheck thyroid magnesium oxide 400 mg (241.3 mg magnesium) tablet RxNorm: 1 29213 1 Tablet(s) Oral QOD 04/04/2019 02/21/2020 Inactive hydrochlorothiazide 25 mg tablet RxNorm: 287474 1 Tablet(s) Oral QA M 03/28/2019 09/20/2019 Inactive amlodipine 5 mg tablet RxNorm: 157770 1 TABLET(S) PO BID 03/15/2019 0 06/12/2019 Inactive magnesium oxide 400 mg (241.3 mg magnesium) tablet RxNorm: 1 91755 1/2 TABLET(S) PO QD 03/06/2019 04/03/2019 Inactive Cytomel 5 mcg tablet RxNorm: 474079 1 Tablet(s) PO QD 02/20/201902/05 Inactive Cytomel 5 mcg tablet RxNorm: 900105 1 Tablet(s) PO QD 02/20/201905/07 Inactive amlodipine 5 mg tablet RxNorm: 355873 1 Tablet(s) PO BID 02/16/2019 0 02/15/2019 Inactive amlodipine 5 mg tablet RxNorm: 185333 1 Tablet(s) PO BID 02/16/2019 1 07/17/2018 Inactive amlodipine 5 mg tablet RxNorm: 059896 1 Tablet(s) PO BID 02/16/2019 0 02/16/2019 Inactive Synthroid 50 mcg tablet RxNorm: 155476 1 TABLET(S) PO QD 02/13/2019 1 Inactive Synthroid 50 mcg tablet RxNorm: 740803 1 TABLET(S) PO QD 01/16/2019 0 02/12/2019 Inactive magnesium oxide 400 mg (241.3 mg magnesium) tablet RxNorm: 1 61339 1/2 Tablet(s) PO QD 01/11/2019 03/05/2019 Inactive temazepam 15 mg capsule RxNorm: 119747 1 Capsule(s) PO QHS 01/04/20 19 04/03/2019 Inactive cefdinir 300 mg capsule RxNorm: 356942 1 Capsule(s) PO BID 12/22/19 19 12/20/2018 Inactive cefdinir 300 mg capsule RxNorm: 872417 1 Capsule(s) PO BID 12/22/19 19 12/24/2018 Inactive hydrochlorothiazide 25 mg tablet RxNorm: 759636 1 Tablet(s) PO QAM 12/19/2018 03/27/2019 Inactive magnesium oxide 400 mg (241.3 mg magnesium) tablet RxNorm: 1 58438 1/2 Tablet(s) PO QD 12/15/2018 01/11/2019 Inactive magnesium oxide 400 mg (241.3 mg magnesium) tablet RxNorm: 1 64848 1/2 Tablet(s) PO QD 12/15/2018 12/14/2018 Inactive Flonase Allergy Relief 50 mcg/actuation nasal spray,suspensi on RxNorm: 4663912 2 SPRAY NASAL QHS 11/09/2018 12/11/2018 Inactive temazepam 15 mg capsule RxNorm: 653952 1 Capsule(s) PO QHS 11/08/19 19 01/02/2019 Inactive Synthroid 50 mcg tablet RxNorm: 713454 1 Tablet(s) PO QD 10/21/2018 0 01/15/2019 Inactive potassium chloride ER 20 mEq tablet,extended release RxNorm: 732467 Tablet(s) 1 TABLET(S) PO BID 10/19/2018 04/09/2019 Inactive Patient reque sts 90 days supplyPatient requests 90 days supply Flonase Allergy Relief 50 mcg/actuation nasal spray,suspensi on RxNorm: 6120174 2 SPRAY NASAL QHS 10/14/2018 12/11/2018 Inactive Patient reques ts 90 days supply Flonase Allergy Relief 50 mcg/actuation nasal spray,suspensi on RxNorm: 7492988 2 Drasco NASAL QHS 10/13/2018 10/13/2018 Inactive temazepam 15 mg capsule RxNorm: 510041 1 Capsule(s) PO QHS 10/06/19 19 11/06/2018 Inactive Synthroid 50 mcg tablet RxNorm: 756082 1 Tablet(s) PO QD 10/05/2018 0 10/20/2018 Inactive promethazine 6.25 mg/5 mL oral syrup RxNorm: 013354 5 M illiliter(s) PO Q6H as needed for cough 09/30/2018 12/11/2018 Inactive promethazine-DM 6.25 mg-15 mg/5 mL oral syrup RxNorm: 445821 5 PO Q6H as needed for cough 09/30/2018 12/11/2018 Inactive prednisone 10 mg tablet RxNorm: 784919 1 Tablet(s) PO QD 09/27/2018 0 09/26/2018 Inactive prednisone 10 mg tablet RxNorm: 489504 1 Tablet(s) PO QD 09/27/2018 0 10/03/2018 Inactive cefdinir 300 mg capsule RxNorm: 495436 1 Capsule(s) PO BID 09/24/1909/29/2018 Inactive Macrobid 100 mg capsule RxNorm: 295524 1 Capsule(s) PO BID 09/21/1909/25/2018 Inactive potassium chloride ER 20 mEq tablet,extended release RxNorm: 902296 1 TABLET(S) PO BID 09/14/2018 10/13/2018 Inactive Patient reques ts 90 days supplyPatient requests 90 days supply potassium chloride ER 20 mEq tablet,extended release RxNorm: 881684 1 Tablet(s) PO BID 09/12/2018 09/13/2018 Inactive Patient reques ts 90 days supply Macrobid 100 mg capsule RxNorm: 699435 1 Capsule(s) PO BID 09/06/1909/11/2018 Inactive potassium chloride ER 20 mEq tablet,extended release RxNorm: 577962 1 TABLET(S) PO QD 1 TABLET(S) PO QD 08/26/2018 09/11/2018 Inactive Patien t requests 90 days supply potassium chloride ER 20 mEq tablet,extended release RxNorm: 151771 1 Tablet(s) PO QD 1 TABLET(S) PO QD 08/26/2018 08/25/2018 Inactive potassium chloride ER 20 mEq tablet,extended release RxNorm: 616163 1 TABLET(S) PO QD 08/25/2018 08/25/2018 Inactive Synthroid 50 mcg tablet RxNorm: 869340 1 TABLET(S) PO QD DAW08/2309/04/2018 Inactive potassium chloride ER 20 mEq tablet,extended release RxNorm: 286909 1 Tablet(s) PO QD 07/28/2018 08/24/2018 Inactive potassium chloride ER 20 mEq tablet,extended release RxNorm: 829176 1 Tablet(s) PO QD 07/28/2018 07/27/2018 Inactive hydrochlorothiazide 25 mg tablet RxNorm: 689785 1 Tablet(s) PO QAM 06/27/2018 12/18/2018 Inactive Synthroid 50 mcg tablet RxNorm: 255501 1 Tablet(s) PO QD DAW1 06/2708/22/2018 Inactive Synthroid 50 mcg tablet RxNorm: 204939 1 TABLET(S) PO QD DAW1 06/1306/26/2018 Inactive Synthroid 75 mcg tablet RxNorm: 123136 1 TABLET(S) PO QD 06/13/2018 0 09/04/2018 Inactive BRAND ONLY mupirocin 2 % topical ointment RxNorm: 898977 1 Applica tion TOP BID to affected area as needed 05/03/2018 09/14/2018 Inactive hydrochlorothiazide 25 mg tablet RxNorm: 813592 1 TABLET(S) PO QD 1 07/02/2017 06/26/2018 Inactive Synthroid 50 mcg tablet RxNorm: 564315 1 Tablet(s) PO QD DAW1 04/1506/12/2018 Inactive Synthroid 50 mcg tablet RxNorm: 607667 1 Tablet(s) PO QD DAW04/1504/14/2018 Inactive Synthroid 75 mcg tablet RxNorm: 967594 1 Tablet(s) PO QD 03/15/2018 1 06/14/2017 Inactive BRAND ONLY temazepam 15 mg capsule RxNorm: 598525 1 Capsule(s) PO QHS 03/15/20 18 06/12/2018 Inactive Synthroid 75 mcg tablet RxNorm: 035193 1 Tablet(s) PO QD 01/27/2018 1 Inactive BRAND ONLY Synthroid 75 mcg tablet RxNorm: 810378 1 Tablet(s) PO QD (6 day s per week) 01/17/2018 01/26/2018 Inactive BRAND ONLY Duexis 800 mg-26.6 mg tablet RxNorm: 2923771 1/2 Tablet(s) PO BID 0 10/20/2017 10/22/2017 Inactive Synthroid 75 mcg tablet RxNorm: 450616 1 Tablet(s) PO QD 09/17/2017 1 Inactive BRAND ONLY hydrochlorothiazide 25 mg tablet RxNorm: 291625 1 TABLET(S) PO QD 0 08/30/2017 05/01/2018 Inactive hydrochlorothiazide 25 mg tablet RxNorm: 469552 1 Tablet(s) PO QAM 06/03/2017 09/14/2018 Inactive hydrochlorothiazide 12.5 mg tablet RxNorm: 195346 1 Tablet(s) PO QA M 05/25/2017 06/02/2017 Inactive Synthroid 75 mcg tablet RxNorm: 942579 1 Tablet(s) PO QD 05/14/2017 0 09/17/2017 Inactive BRAND ONLY Restoril 15 mg capsule RxNorm: 835053 TAKE 1 CAPSULE BY MOUTH EVERY NIGHT AT BEDTIME NEEDED 03/05/2017 04/02/2017 Inactive Synthroid 75 mcg tablet RxNorm: 594847 1 Tablet(s) PO QD 01/18/2017 1 07/15/2016 Inactive BRAND ONLY Synthroid 50 mcg tablet RxNorm: 786214 1 Tablet(s) PO QD 01/13/2017 0 01/17/2017 Inactive tizanidine 2 mg tablet RxNorm: 275673 1 Tablet(s) PO QHS for spasm 01/04/2017 03/21/2017 Inactive tizanidine 2 mg tablet RxNorm: 732495 1 Tablet(s) PO QHS for spasm 12/17/2016 01/04/2017 Inactive hydrochlorothiazide 25 mg tablet RxNorm: 162992 1 Tablet(s) PO QD 0 12/04/2016 01/03/2017 Inactive Synthroid 50 mcg tablet RxNorm: 978406 1 Tablet(s) PO QD as directe d 11/18/2016 01/13/2017 Inactive Synthroid 75 mcg tablet RxNorm: 619936 1 Tablet(s) PO QD as directe d 11/18/2016 01/10/2017 Inactive Restoril 15 mg capsule RxNorm: 415581 1 Capsule(s) PO QHS as ne eded for sleep 11/16/2016 03/05/2017 Inactive losartan 50 mg tablet RxNorm: 645522 1 Tablet(s) PO BID 10/19/2016 Inactive prednisone 20 mg tablet RxNorm: 913335 1 Tablet(s) PO QD 10/08/2016 0 10/07/2016 Inactive clindamycin 300 mg capsule RxNorm: 443494 1 Capsule(s) PO TID 10/0810/17/2016 Inactive prednisone 20 mg tablet RxNorm: 179576 1 Tablet(s) PO QD 10/08/2016 0 10/12/2016 Inactive clindamycin 300 mg capsule RxNorm: 975575 1 Capsule(s) PO TID 10/0810/07/2016 Inactive cephalexin 500 mg capsule RxNorm: 485294 1 Capsule(s) PO TID 201610/07/2016 Inactive levothyroxine 75 mcg tablet RxNorm: 662821 TAKE 1 TABLET BY TONE TH EVERY DAY 10/02/2016 10/04/2016 Inactive levothyroxine 75 mcg tablet RxNorm: 485844 1 Tablet(s) PO QD 201610/04/2016 Inactive Restoril 15 mg capsule RxNorm: 248556 1 Capsule(s) PO QHS 08/23/2016 11/15/2016 Inactive levothyroxine 75 mcg tablet RxNorm: 232181 1 Tablet(s) PO QD 201608/19/2016 Inactive levothyroxine 75 mcg tablet RxNorm: 018678 1 Tablet(s) PO QD 201609/09/2016 Inactive levothyroxine 50 mcg capsule RxNorm: 089116 1 Capsule(s) PO QD 06/201608/19/2016 Inactive hydrochlorothiazide 25 mg tablet RxNorm: 631825 1 Tablet(s) PO QD 0 06/23/2016 12/03/2016 Inactive amoxicillin 500 mg tablet RxNorm: 929289 1 Tablet(s) PO TID 016 06/03/2016 Inactive doxycycline hyclate 100 mg capsule RxNorm: 6189068 1 Capsule(s) PO BID 06/03/2016 06/12/2016 Inactive doxycycline hyclate 100 mg capsule RxNorm: 6781005 1 Capsule(s) PO BID 06/03/2016 06/02/2016 Inactive levothyroxine 75 mcg tablet RxNorm: 213441 1 Tablet(s) PO QD 201505/19/2016 Inactive losartan 50 mg tablet RxNorm: 803813 1 TABLET(S) PO BID 04/07/2016 Inactive metoprolol succinate ER 50 mg tablet,extended release 24 hr RxNorm: 473720 1 TABLET(S) PO QHS AND 1/2 TAB IN THE AM--REPLACES 25MG DOSE 04/03/2016 07/27/2016 Inactive Restoril 15 mg capsule RxNorm: 159247 1 Capsule(s) PO QHS as ne eded for sleep 02/24/2016 05/23/2016 Inactive hydrochlorothiazide 12.5 mg tablet RxNorm: 113320 1 Tab let(s) PO QD replaces 25mg dose 01/13/2016 06/22/2016 Inactive metoprolol succinate ER 50 mg tablet,extended release 24 hr RxNorm: 984140 1 Tablet(s) PO QHS and 1/2 tab in the AM--replaces 25mg dose 10/17/2015 04/02/2016 Inactive amlodipine 2.5 mg tablet RxNorm: 476888 1 Tablet(s) PO QHS 10/08/19 16 10/07/2015 Inactive amlodipine 2.5 mg tablet RxNorm: 420769 1 Tablet(s) PO QHS 10/08/19 16 10/16/2015 Inactive losartan 50 mg tablet RxNorm: 687190 1 TABLET(S) PO BID 09/23/2015 Inactive Medrol (Topher) 4 mg tablets in a dose pack RxNorm: 882021 Take as directed 09/03/2015 10/07/2015 Inactive Lasix 40 mg tablet RxNorm: 456504 1 TABLET(S) PO QD PRN FOR SWELLIN G 08/27/2015 12/04/2015 Inactive Lasix 40 mg tablet RxNorm: 921191 1 Tablet(s) PO QD prn for swellin g 08/01/2015 08/26/2015 Inactive losartan 50 mg tablet RxNorm: 596863 1 Tablet(s) PO BID 06/27/2015 Inactive Zyrtec 10 mg tablet RxNorm: 9665848 1 Tablet(s) PO QD 12/05/2015 Active magnesium oxide 400 mg (241.3 mg magnesium) tablet RxNorm: 60725 1 oral 05/25/2022 Active levothyroxine 50 mcg capsule RxNorm: 220887 1 Capsule(s) PO QD 06/201607/07/2016 Inactive sotalol 80 mg tablet RxNorm: 8237303 1/2 Tablet(s) PO BID 09/05/2018 09/04/2018 Inactive melatonin 1 mg tablet RxNorm: 991722 1 Tablet(s) PO QHS as need ed for sleep 12/05/2015 12/04/2015 Inactive levothyroxine 75 mcg tablet RxNorm: 956867 1 Tablet(s) PO 6 day s a week 07/08/2016 07/07/2016 Inactive Vitamin D3 1,000 unit tablet RxNorm: 182680 1 Tablet(s) PO QD 12/0412/04/2015 Inactive sotalol 80 mg tablet RxNorm: 5475564 1 Tablet(s) PO BID 08/30/2017 Inactive Synthroid 75 mcg tablet RxNorm: 592367 2 Tablet(s) PO M, W, F 09/1509/14/2018 Inactive tizanidine 2 mg tablet RxNorm: 373115 1 Tablet(s) PO QHS for spasm 12/17/2016 12/16/2016 Inactive Nasacort AQ 55 mcg nasal spray aerosol RxNorm: 4885883 [place] ANNELIESE AL as needed 12/12/2018 12/11/2018 Inactive fluocinonide 0.05 % topical gel RxNorm: 584195 TOP as needed on gum s 07/28/2016 07/27/2016 Inactive Flonase Allergy Relief 50 mcg/actuation nasal spray,suspensi on RxNorm: 8056982 2 [place] NASAL QHS 10/13/2018 10/12/2018 Inactive Synthroid 50 mcg tablet RxNorm: 956272 1 Tablet(s) PO Tu, Thur, Sat, Sun 09/20/2018 09/19/2018 Inactive Osteo Bi-Flex (5-Loxin) 1,500 mg-400 unit-100 mg tablet RxNo rm: 1 Tablet(s) PO QD 12/05/2015 12/04/2015 Inactive hydrochlorothiazide 25 mg tablet RxNorm: 627362 1/2 Tablet(s) PO QA M 01/13/2016 01/12/2016 Inactive metoprolol succinate ER 25 mg tablet,extended release 24 hr RxNorm: 689907 1 Tablet(s) PO QD 10/17/2015 10/16/2015 Inactive promethazine-DM 6.25 mg-15 mg/5 mL oral syrup RxNorm: 961476 5 PO Q6H as needed for cough 09/30/2018 09/29/2018 Inactive Synthroid 50 mcg tablet RxNorm: 729254 1 Tablet(s) PO QD 10/05/2018 0 10/04/2018 Inactive mupirocin 2 % topical ointment RxNorm: 462561 1 Applica tion TOP BID to affected area as needed 05/03/2018 05/02/2018 Inactive hydrochlorothiazide 25 mg tablet RxNorm: 227468 1 Tablet(s) PO QOD 01/13/2016 01/12/2016 Inactive Vitamin D3 1000 units Capsule RxNorm: 1 Capsule(s) PO QD 9 12/11/2018 Inactive levothyroxine 75 mcg tablet RxNorm: 600237 1 Tablet(s) PO QD 201505/07/2016 Inactive potassium chloride ER 10 mEq capsule,extended release RxNorm : 636778 1 Capsule(s) PO QD 12/05/2015 12/04/2015 Inactive aspirin 81 mg tablet RxNorm: 537775 1 Tablet(s) PO QHS 01/22/2020 Inactive Claritin 10 mg tablet RxNorm: 147679 1 Tablet(s) PO QD 12/05/2015 Inactive Vitamin B12 1000mcg Tablet RxNorm: 1/2 Tablet(s) PO QD 12/12/2018 12/11/2018 Inactive temazepam 15 mg capsule RxNorm: 283914 1 Capsule(s) PO QHS 03/15/20 18 03/14/2018 Inactive hydrochlorothiazide 25 mg tablet RxNorm: 294817 1 Tablet(s) PO QAM 12/05/2015 12/04/2015 Inactive sotalol 80 mg tablet RxNorm: 7926831 1/2 Tablet(s) PO QD 09/22/2018 0 09/21/2018 Inactive mupirocin 2 % topical ointment RxNorm: 570185 TOP as needed 017 08/24/2016 Inactive hydrochlorothiazide 25 mg tablet RxNorm: 013376 1/2 Tablet(s) PO QA M 05/25/2017 05/24/2017 Inactive amlodipine 10 mg tablet RxNorm: 636976 1 Tablet(s) PO QD 02/16/2019 0 02/15/2019 Inactive Citracal + D Slow Release 600 mg calcium-500 unit tablet,ext .release RxNorm: 2 Tablet(s) PO QD 02/16/2019 02/15/2019 Inactive triamcinolone acetonide 0.1 % topical cream RxNorm: 5230708 TOP as needed 12/12/2018 12/11/2018 Inactive Restoril 15 mg capsule RxNorm: 042607 1 Capsule(s) PO QHS 02/24/2016 02/23/2016 Inactive hydrochlorothiazide 25 mg tablet RxNorm: 848787 1/2 Tablet(s) PO QO D 01/13/2016 01/12/2016 Inactive promethazine 6.25 mg/5 mL oral syrup RxNorm: 323806 5 M illiliter(s) PO Q6H as needed for cough 09/30/2018 09/29/2018 Inactive Centrum Silver Women 8 mg iron-400 mcg-300 mcg tablet RxNorm : 1 Tablet(s) PO QD 08/30/2017 08/29/2017 Inactive losartan 50 mg tablet RxNorm: 737336 1 Tablet(s) PO QHS 01/04/2017 Inactive levothyroxine 75 mcg tablet RxNorm: 206795 1 Tablet(s) PO 6 day s a week 10/05/2016 10/04/2016 Inactive losartan 50 mg tablet RxNorm: 898050 2 Tablet(s) PO QD 06/27/2015 Inactive Culturelle 10 billion cell capsule RxNorm: 227431 1-2 Capsule(s ) PO QD 05/10/2019 05/09/2019 Inactive Culturelle 10 billion cell capsule RxNorm: 149300 1 Capsule(s) PO Q D 08/30/2017 08/29/2017 Inactive Synthroid 75 mcg tablet RxNorm: 592356 1 Tablet(s) PO MWF 01/18/2017 01/17/2017 Inactive [...] Code Item Item Code Result Date S ervice Location COMPLETE BLOOD COUNT [id number] WBC 6.5 10e9/L 09/27/19 Unknown COMPLETE BLOOD COUNT [id number] RBC 4.22 10e12/L 2018 Unknown COMPLETE BLOOD COUNT [id number] HEMOGLOBIN 13.3 g/dL 09/27/19 19 Unknown COMPLETE BLOOD COUNT [id number] HEMATOCRIT 38.7 % 09/27/19 19 Unknown COMPLETE BLOOD COUNT [id number] MCV 91.7 fL 9 Unknown COMPLETE BLOOD COUNT [id number] MCH 31.5 pg 9 Unknown COMPLETE BLOOD COUNT [id number] MCHC 34.4 g/dL 9 Unknown COMPLETE BLOOD COUNT [id number] PLATELET COUNT 326 10e9/L Unknown COMPLETE BLOOD COUNT [id number] Mean Plt Volume 8.9 fL Unknown COMPLETE BLOOD COUNT 5414017 Neut Auto 69.0 % 9 Unknown COMPLETE BLOOD COUNT [id number] Lymph Auto 16.5 % 09/27/19 19 Unknown COMPLETE BLOOD COUNT [id number] [place] Auto 8.3 % 9 Unknown COMPLETE BLOOD COUNT [id number] RDW 12.2 % 9 Unknown COMPLETE BLOOD COUNT 6560794 Eos Auto 5.9 % 9 Unknown COMPLETE BLOOD COUNT 3299859 Baso Auto 0.3 % 9 Unknown COMPLETE BLOOD COUNT 7868601 Neutrophil Abs 4.48 10e9/L Unknown COMPLETE BLOOD COUNT [id number] Lymphocyte Abs 1.07 10e9/L Unknown COMPLETE BLOOD COUNT [id number] Monocyte Abs 0.54 10e9/L 09/06 Unknown COMPLETE BLOOD COUNT [id number] Eosinophil Abs 0.38 10e9/L Unknown COMPLETE BLOOD COUNT [id number] RDW-SD 39.8 fL 9 Unknown COMPLETE BLOOD COUNT [id number] Basophil Abs 0.02 10e9/L 09/06 Unknown GFR CALC 5616511 GFR Non Afr Amr >60 mL/min 12/12/2015 Un known GFR CALC [id number] GFR Afr Amr >60 mL/min 12/12/2015 [place] [address] Glucose 100 mg/dL 12/11 [place] [address] CREATININE 0.78 mg/dL 12/2015 [place] [address] BUN 14 mg/dL 12/11 [place] [address] SODIUM 132 mmol/L 12/2015 [place] [address] POTASSIUM 3.6 mmol/L 12/2015 [place] [address] CHLORIDE 97 mmol/L 12/11 [place] [address] Bicarbonate 28 mmol/L 12/2015 [place] [address] AGAP 7 mmol/L 12/11 [place] [address] CALCIUM 9.3 mg/dL 12/11 [place] [address] Glucose 92 mg/dL 12/04 [place] [address] CREATININE 0.76 mg/dL [place] [address] BUN 8 mg/dL 12/04 [place] [address] SODIUM 133 mmol/L 11/07 [place] [address] POTASSIUM 4.1 mmol/L 11/07 [place] [address] CHLORIDE 97 mmol/L 12/04 [place] [address] Bicarbonate 27 mmol/L [place] [address] AGAP 9 mmol/L 12/04 [place] [address] CALCIUM 9.8 mg/dL 12/04 Unknown GFR CALC [id number] GFR Afr Amr >60 mL/min 12/05/2015 Unknow n COMPREHENSIVE METABOLIC 09968 AST 36 U/L 2015 Unknown COMPREHENSIVE METABOLIC 90390 ALT 41 U/L 2015 Unknown COMPREHENSIVE METABOLIC 14534 BUN 11 mg/dL 2015 Unknown COMPREHENSIVE METABOLIC 24331 ALBUMIN 4.2 g/dL 2015 Unknown COMPREHENSIVE METABOLIC 03140 CHLORIDE 93 mmol/L 2015 Unknown COMPREHENSIVE METABOLIC 05180 Bili Total 1.0 mg/dL 11/24 Unknown COMPREHENSIVE METABOLIC 68560 ALK PHOS 79 U/L 2015 Unknown COMPREHENSIVE METABOLIC 79708 SODIUM 128 mmol/L 11/24 Unknown COMPREHENSIVE METABOLIC 42556 CREATININE 0.65 mg/dL 11/06 Unknown COMPREHENSIVE METABOLIC 63004 CALCIUM 9.4 mg/dL 2015 Unknown COMPREHENSIVE METABOLIC 89375 POTASSIUM 3.7 mmol/L 11/24 Unknown COMPREHENSIVE METABOLIC 82424 Total Protein 6.9 g/dL Unknown COMPREHENSIVE METABOLIC 85344 Glucose 101 mg/dL 2015 Unknown COMPREHENSIVE METABOLIC 58028 Bicarbonate 27 mmol/L 11/06 Unknown COMPREHENSIVE METABOLIC 66343 AGAP 8 mmol/L 2015 Unknown THYROID STIMULATING HORMONE 47451 TSH 2.983 uIU/mL 11/25/2015 Unknown COMPLETE BLOOD COUNT [id number] WBC 9.0 10e9/L 11/25/19 16 Unknown COMPLETE BLOOD COUNT [id number] RBC 3.98 10e12/L 2015 Unknown COMPLETE BLOOD COUNT 1739196 HEMOGLOBIN 12.8 g/dL 11/25/19 16 Unknown COMPLETE BLOOD COUNT 6113369 HEMATOCRIT 36.1 % 11/25/19 16 Unknown COMPLETE BLOOD COUNT 7505815 MCV 90.7 fL 6 Unknown COMPLETE BLOOD COUNT 0531115 MCH 32.2 pg 6 Unknown COMPLETE BLOOD COUNT 6733067 MCHC 35.5 g/dL 6 Unknown COMPLETE BLOOD COUNT 5198201 PLATELET COUNT 291 10e9/L Unknown COMPLETE BLOOD COUNT 3502489 Mean Plt Volume 8.8 fL Unknown COMPLETE BLOOD COUNT 5792028 Neut Auto 72.2 % 6 Unknown COMPLETE BLOOD COUNT 3978077 Lymph Auto 19.4 % 11/25/19 16 Unknown COMPLETE BLOOD COUNT 3511804 [place] Auto 7.4 % 6 Unknown COMPLETE BLOOD COUNT 8777673 RDW 11.8 % 6 Unknown COMPLETE BLOOD COUNT 5105847 Eos Auto 0.7 % 6 Unknown COMPLETE BLOOD COUNT 2169243 Baso Auto 0.3 % 6 Unknown COMPLETE BLOOD COUNT 6067307 Neutrophil Abs 6.50 10e9/L Unknown COMPLETE BLOOD COUNT 5610144 Lymphoctye Abs 1.75 10e9/L Unknown COMPLETE BLOOD COUNT 3672546 Monocyte Abs 0.67 10e9/L 11/06 Unknown COMPLETE BLOOD COUNT 8267913 Eosinophil Abs 0.06 10e9/L Unknown COMPLETE BLOOD COUNT 8061900 RDW-SD 38.1 fL 6 Unknown COMPLETE BLOOD COUNT [id number] Basophil Abs 0.03 10e9/L 11/06 Unknown GFR CALC 2066702 GFR Non Afr Amr >60 mL/min 11/25/2015 Un known GFR CALC 5697786 GFR Afr Amr >60 mL/min 11/25/2015 Unknow n Procedures Procedure Codes Date SARSCOV CORONAVIRUS AG IA CPT-4: 95643 01/27/2022 CEFTRIAXONE SODIUM INJECTION CPT-4: J0696 01/27/2022 THER/PROPH/DIAG INJ SC/IM CPT-4: 58838 01/27/2022 URINALYSIS NONAUTO W/O SCOPE CPT-4: 46703 05/12/2021 RML URINE CULTURE/ COLONY COUNT CPT-4: 93832 05/12/20 21 FLU VACC PRSV FREE INC ANTIG 65 AND OLDER CPT-4: 62798 02/27/2021 ADMIN INFLUENZA VIRUS VAC CPT-4: G0008 02/27/2021 FLU VACC PRSV FREE INC ANTIG 65 AND OLDER CPT-4: 88422 02/27/2021 RML URINE CULTURE/ COLONY COUNT CPT-4: 87075 11/12/19 21 URINALYSIS NONAUTO W/O SCOPE CPT-4: 87335 11/11/2020 DESTRUCT PREMALG LESION (Cryosurgery) CPT-4: 17631 RML URINE CULTURE/ COLONY COUNT CPT-4: 15152 02/20/20 20 URINALYSIS NONAUTO W/O SCOPE CPT-4: 89202 02/13/2020 RML URINE CULTURE/ COLONY COUNT CPT-4: 82647 02/13/20 20 CEFTRIAXONE SODIUM INJECTION CPT-4: J0696 02/13/2020 THER/PROPH/DIAG INJ SC/IM CPT-4: 41332 02/13/2020 URINALYSIS NONAUTO W/O SCOPE CPT-4: 91974 11/09/2019 RML URINE CULTURE/ COLONY COUNT CPT-4: 47180 11/09/19 20 CEFTRIAXONE SODIUM INJECTION CPT-4: J0696 05/18/2019 THER/PROPH/DIAG INJ SC/IM CPT-4: 79336 05/18/2019 CEFTRIAXONE SODIUM INJECTION CPT-4: J0696 05/17/2019 THER/PROPH/DIAG INJ SC/IM CPT-4: 61068 05/17/2019 RML URINE CULTURE/ COLONY COUNT CPT-4: 50559 05/08/20 19 THROAT CULTURE CPT-4: 02202 05/08/2019 URINALYSIS NONAUTO W/O SCOPE CPT-4: 02242 04/21/2019 RML URINE CULTURE/ COLONY COUNT CPT-4: 58653 04/21/20 19 CEFTRIAXONE SODIUM INJECTION CPT-4: J0696 04/21/2019 THER/PROPH/DIAG INJ SC/IM CPT-4: 11832 04/21/2019 FLU VACC PRSV FREE INC ANTIG 65 AND OLDER CPT-4: 36866 03/02/2019 FLU VACC PRSV FREE INC ANTIG 65 AND OLDER CPT-4: 73403 03/02/2019 ADMIN INFLUENZA VIRUS VAC CPT-4: G0008 03/02/2019 URINALYSIS NONAUTO W/O SCOPE CPT-4: 94682 02/16/2019 Removal impacted cerumen using irrigation/lavage, unilateral CPT-4: 79530 12/14/2018 UA W/MICR CPT-4: 87043 10/05/2018 ROUTINE VENIPUNCTURE CPT-4: 55393 09/26/2018 RML COMPLETE CBC W/AUTO DIFF WBC CPT-4: 55955 019 CEFTRIAXONE SODIUM INJECTION CPT-4: J0696 09/22/2018 THER/PROPH/DIAG INJ SC/IM CPT-4: 01854 09/22/2018 INFLUENZA ASSAY W/OPTIC CPT-4: 43186 09/22/2018 URINALYSIS NONAUTO W/O SCOPE CPT-4: 66925 09/20/2018 CEFTRIAXONE SODIUM INJECTION CPT-4: J0696 09/20/2018 THER/PROPH/DIAG INJ SC/IM CPT-4: 86192 09/20/2018 RML URINE CULTURE/ COLONY COUNT CPT-4: 77485 09/21/19 19 RML URINE CULTURE/ COLONY COUNT CPT-4: 17321 09/15/19 19 URINALYSIS NONAUTO W/O SCOPE CPT-4: 81168 09/05/2018 RML URINE CULTURE/ COLONY COUNT CPT-4: 84753 09/06/19 19 URINALYSIS NONAUTO W/O SCOPE CPT-4: 88717 04/20/2018 RML URINE CULTURE/ COLONY COUNT CPT-4: 19194 04/20/20 18 CERUM REMOVAL CPT-4: 70849 03/18/2018 FLU VACC PRSV FREE INC ANTIG 65 AND OLDER CPT-4: 52937 03/03/2018 ADMIN INFLUENZA VIRUS VAC CPT-4: G0008 03/03/2018 PRESCRIP TRANSMIT VIA ERX SY CPT-4: G8553 05/25/2017 FLU VACC PRSV FREE INC ANTIG 65 AND OLDER CPT-4: 69832 03/08/2017 ADMIN INFLUENZA VIRUS VAC CPT-4: G0008 03/08/2017 PRESCRIP TRANSMIT VIA ERX SY CPT-4: G8553 01/18/2017 PRESCRIP TRANSMIT VIA ERX SY CPT-4: G8553 11/18/2016 RML URINE CULTURE/ COLONY COUNT CPT-4: 79882 10/27/19 17 URINALYSIS NONAUTO W/O SCOPE CPT-4: 72513 10/26/2016 PRESCRIP TRANSMIT VIA ERX SY CPT-4: G8553 10/08/2016 PRESCRIP TRANSMIT VIA ERX SY CPT-4: G8553 10/05/2016 PRESCRIP TRANSMIT VIA ERX SY CPT-4: G8553 06/23/2016 PRESCRIP TRANSMIT VIA ERX SY CPT-4: G8553 06/03/2016 INFLUENZA ASSAY W/OPTIC CPT-4: 98769 05/26/2016 FLU VACC PRSV FREE INC ANTIG 65 AND OLDER CPT-4: 46173 03/19/2016 ADMIN INFLUENZA VIRUS VAC CPT-4: G0008 03/19/2016 PNEUMOCOCCAL VACC 13 CARLIE IM CPT-4: 15640 01/13/2016 ADMIN PNEUMOCOCCAL VACCINE CPT-4: G0009 01/13/2016 PRESCRIP TRANSMIT VIA ERX SY CPT-4: G8553 01/13/2016 URINALYSIS NONAUTO W/O SCOPE CPT-4: 97057 11/27/2015 RML URINE CULTURE/ COLONY COUNT CPT-4: 69790 11/27/19 16 PRESCRIP TRANSMIT VIA ERX SY [...] 97.9 (F) We ight: 141 lbs Code: 65201-3 08/25/2022 Blood Pressure 1: 124/78 Code: 8480-6 Heart Rate 1: 75 bpm Respiratory Rate: 20 bpm SpO2: 98% Temperature: 36.4 (C) / 97.5 (F) We ight: 134 lbs Code: 11144-4 08/11/2022 Blood Pressure 1: 136/74 Code: 8480-6 Heart Rate 1: 69 bpm Respiratory Rate: 18 bpm SpO2: 97% Temperature: 36.7 (C) / 98.0 (F) We ight: 134 lbs Code: 85056-5 07/28/2022 Blood Pressure 1: 126/74 Code: 8480-6 Heart Rate 1: 74 bpm Respiratory Rate: 20 bpm SpO2: 97% Temperature: 36.4 (C) / 97.5 (F) We ight: 135 lbs Code: 36095-8 07/14/2022 Blood Pressure 1: 130/76 Code: 8480-6 Heart Rate 1: 51 bpm SpO2: 100% Temperature: 36.3 (C) / 97.3 (F) Weight: 130 lbs Code : 58053-6 06/23/2022 Blood Pressure 1: 140/80 Code: 8480-6 Heart Rate 1: 58 bpm Respiratory Rate: 20 bpm SpO2: 98% Temperature: 36.3 (C) / 97.3 (F) We ight: 135 lbs Code: 39651-2 05/25/2022 Blood Pressure 1: 161/82 Code: 8480-6 BMI: 24.3 Code: 02755-7 Heart Rate 1: 72 bpm Height: 5'3" Code: 8302-2 SpO2: 97% Temperature: 3 6.3 (C) / 97.3 (F) Weight: 137 lbs Code: 66428-3 03/19/2022 Blood Pressure 1: 140/82 Code: 8480-6 BMI: 23.2 Code: 20268-3 Heart Rate 1: 56 bpm Height: 5'3" Code: 8302-2 SpO2: 92% Temperature: 3 6.8 (C) / 98.2 (F) Weight: 131 lbs Code: 17006-8 02/16/2022 Blood Pressure 1: 154/82 Code: 8480-6 BMI: 23.6 Code: 11022-1 Heart Rate 1: 64 bpm Height: 5'3" Code: 8302-2 Respiratory Rate: 20 bpm SpO2: 96% Temperature: 36.8 (C) / 98.3 (F) Weight: 133 lbs Code: 53023-9 2022 Blood Pressure 1: 140/74 Code: 8480-6 BMI: 22.5 Code: 37755-4 Heart Rate 1: 54 bpm Height: 5'3" Code: 8302-2 Respiratory Rate: 18 bpm SpO2: 96% Temperature: 36.8 (C) / 98.2 (F) Weight: 127 lbs Code: 33473-3 01/27/2022 Blood Pressure 1: 144/80 Code: 8480-6 Heart Rate 1: 84 bpm Respiratory Rate: 22 bpm SpO2: 96% Temperature: 36.7 (C) / 98.0 (F) We ight: 134 lbs Code: 75388-7 10/28/2021 Blood Pressure 1: 152/82 Code: 8480-6 BMI: 22.8 Code: 23926-4 Heart Rate 1: 68 bpm Height: 5'4" Code: 8302-2 Respiratory Rate: 20 bpm SpO2: 98% Temperature: 36.8 (C) / 98.2 (F) Weight: 133 lbs Code: 94792-9 09/23/2021 Blood Pressure 1: 154/78 Code: 8480-6 Heart Rate 1: 66 bpm Respiratory Rate: 18 bpm SpO2: 97% Temperature: 36.2 (C) / 97.1 (F) We ight: 130 lbs Code: 20175-3 08/21/2021 Blood Pressure 1: 166/78 Code: 8480-6 Heart Rate 1: 76 bpm Respiratory Rate: 20 bpm SpO2: 98% Temperature: 36.5 (C) / 97.7 (F) We ight: 134 lbs Code: 79464-2 07/30/2021 Blood Pressure 1: 146/68 Code: 8480-6 Heart Rate 1: 76 bpm Respiratory Rate: 20 bpm SpO2: 98% Temperature: 36.7 (C) / 98.1 (F) We ight: 135 lbs Code: 97149-8 06/19/2021 Blood Pressure 1: 96/50 Code: 8480-6 Heart Rate 1: 72 bpm Respiratory Rate: 20 bpm SpO2: 97% Temperature: 36.8 (C) / 98.3 (F) Weight: 132 lbs Code: 48847-2 05/08/2021 Blood Pressure 1: 132/74 Code: 8480-6 Heart Rate 1: 72 bpm Respiratory Rate: 20 bpm SpO2: 99% Temperature: 36.8 (C) / 98.2 (F) We ight: 132 lbs Code: 14397-1 04/28/2021 Blood Pressure 1: 132/62 Code: 8480-6 Heart Rate 1: 88 bpm Respiratory Rate: 20 bpm SpO2: 98% Temperature: 36.6 (C) / 97.9 (F) We ight: 141 lbs Code: 13194-5 03/19/2021 Blood Pressure 1: 140/67 Code: 8480-6 Heart Rate 1: 71 bpm Respiratory Rate: 15 bpm SpO2: 99% Temperature: 36.3 (C) / 97.3 (F) We ight: 142 lbs Code: 50739-8 02/06/2021 Blood Pressure 1: 152/74 Code: 8480-6 Heart Rate 1: 80 bpm Respiratory Rate: 20 bpm SpO2: 96% Temperature: 36.7 (C) / 98.0 (F) We ight: 138 lbs Code: 52406-1 12/20/2020 Blood Pressure 1: 112/63 Code: 8480-6 Heart Rate 1: 80 bpm Respiratory Rate: 16 bpm SpO2: 99% Temperature: 36.4 (C) / 97.6 (F) We ight: 136 lbs Code: 50442-9 12/11/2020 Blood Pressure 1: 123/64 Code: 8480-6 BMI: 23.5 Code: 33816-0 Heart Rate 1: 68 bpm Height: 5'4" Code: 8302-2 Respiratory Rate: 15 bpm SpO2: 98% Temperature: 36.2 (C) / 97.2 (F) Weight: 137 lbs Code: 73925-8 11/11/2020 Blood Pressure 1: 154/82 Code: 8480-6 Heart Rate 1: 76 bpm SpO2: 99% Temperature: 36.9 (C) / 98.5 (F) Weight: 136 lbs Code: 88345-9 09/05/2020 Blood Pressure 1: 150/66 Code: 8480-6 Heart Rate 1: 80 bpm Respiratory Rate: 20 bpm SpO2: 99% Temperature: 37.0 (C) / 98.6 (F) We ight: 132 lbs Code: 81157-7 07/29/2020 Blood Pressure 1: 152/72 Code: 8480-6 Heart Rate 1: 84 bpm Respiratory Rate: 20 bpm SpO2: 97% Temperature: 36.8 (C) / 98.2 (F) We ight: 133 lbs Code: 12126-2 06/24/2020 Blood Pressure 1: 112/68 Code: 8480-6 Heart Rate 1: 72 bpm Respiratory Rate: 20 bpm SpO2: 98% Temperature: 36.8 (C) / 98.2 (F) We ight: 130 lbs Code: 37813-7 06/21/2020 Blood Pressure 1: 129/78 Code: 8480-6 He art Rate 1: 81 bpm 02/29/2020 Blood Pressure 1: 136/70 Code: 8480-6 Heart Rate 1: 76 bpm Respiratory Rate: 20 bpm SpO2: 98% Temperature: 36.4 (C) / 97.5 (F) We ight: 130 lbs Code: 27184-7 02/22/2020 Blood Pressure 1: 142/67 Code: 8480-6 Heart Rate 1: 64 bpm Respiratory Rate: 16 bpm SpO2: 98% Temperature: 36.5 (C) / 97.7 (F) We ight: 128 lbs Code: 47818-6 02/13/2020 Blood Pressure 1: 124/80 Code: 8480-6 Heart Rate 1: 61 bpm Respiratory Rate: 15 bpm SpO2: 97% Temperature: 36.2 (C) / 97.1 (F) We ight: Code: 04124-9 2020 Blood Pressure 1: 124/60 Code: 8480-6 Heart Rate 1: 92 bpm Respiratory Rate: 20 bpm SpO2: 97% Temperature: 36.4 (C) / 97.5 (F) We ight: 129 lbs Code: 62725-5 01/22/2020 Blood Pressure 1: 134/54 Code: 8480-6 Heart Rate 1: 72 bpm Respiratory Rate: 20 bpm SpO2: 97% Temperature: 37.1 (C) / 98.7 (F) We ight: 128 lbs Code: 21637-0 12/26/2019 Blood Pressure 1: 124/74 Code: 8480-6 Heart Rate 1: 64 bpm Respiratory Rate: 20 bpm SpO2: 98% Temperature: 37.0 (C) / 98.6 (F) We ight: 126 lbs Code: 57701-0 11/27/2019 Blood Pressure 1: 134/73 Code: 8480-6 Heart Rate 1: 116 bpm Respiratory Rate: 17 bpm SpO2: 97% Temperature: 36.7 (C) / 98.0 (F) We ight: 134 lbs Code: 05689-5 11/09/2019 Blood Pressure 1: 126/68 Code: 8480-6 Heart Rate 1: 92 bpm Respiratory Rate: 20 bpm SpO2: 97% Temperature: 37.2 (C) / 98.9 (F) We ight: 135 lbs Code: 25822-1 10/10/2019 Blood Pressure 1: 117/65 Code: 8480-6 Heart Rate 1: 66 bpm Respiratory Rate: 16 bpm SpO2: 99% Temperature: 36.7 (C) / 98.0 (F) We ight: 130 lbs Code: 53639-6 07/13/2019 Blood Pressure 1: 144/70 Code: 8480-6 BMI: 23.0 Code: 32578-1 Heart Rate 1: 92 bpm Height: 5'4" Code: 8302-2 Respiratory Rate: 20 bpm SpO2: 98% Temperature: 36.8 (C) / 98.2 (F) Weight: 133 lbs Code: 52501-0 05/18/2019 Blood Pressure 1: 122/60 Code: 8480-6 Heart Rate 1: 92 bpm Respiratory Rate: 20 bpm SpO2: 97% Temperature: 37.0 (C) / 98.6 (F) 05/17/2019 Blood Pressure 1: 122/74 Code: 8480-6 Heart Rate 1: 84 bpm Respiratory Rate: 20 bpm SpO2: 98% Temperature: 37.2 (C) / 99.0 (F) We ight: 130 lbs Code: 36342-4 04/24/2019 Blood Pressure 1: 124/64 Code: 8480-6 Heart Rate 1: 93 bpm SpO2: 99% Temperature: 36.8 (C) / 98.3 (F) Weight: 134 lbs Code: 46944-3 04/10/2019 Blood Pressure 1: 128/68 Code: 8480-6 Heart Rate 1: 73 bpm SpO2: 99% Temperature: 37.2 (C) / 98.9 (F) Weight: 134 lbs Code: 33257-7 02/16/2019 Blood Pressure 1: 128/64 Code: 8480-6 Heart Rate 1: 72 bpm Respiratory Rate: 20 bpm SpO2: 97% Temperature: 36.8 (C) / 98.2 (F) We ight: 129 lbs Code: 47842-2 12/20/2018 Blood Pressure 1: 152/70 Code: 8480-6 Heart Rate 1: 87 bpm Respiratory Rate: 20 bpm SpO2: 98% Temperature: 36.9 (C) / 98.5 (F) We ight: 127 lbs Code: 76126-0 12/14/2018 Blood Pressure 1: 122/68 Code: 8480-6 Heart Rate 1: 80 bpm Respiratory Rate: 18 bpm SpO2: 96% Temperature: 36.8 (C) / 98.2 (F) 12/12/2018 Blood Pressure 1: 140/68 Code: 8480-6 Heart Rate 1: 75 bpm Respiratory Rate: 18 bpm SpO2: 97% Temperature: 36.2 (C) / 97.1 (F) We ight: 127 lbs Code: 92398-6 10/19/2018 Blood Pressure 1: 126/64 Code: 8480-6 Heart Rate 1: 88 bpm Respiratory Rate: 20 bpm SpO2: 96% Temperature: 37.1 (C) / 98.8 (F) We ight: 123 lbs Code: 77325-9 10/13/2018 Blood Pressure 1: 132/62 Code: 8480-6 He art Rate 1: 86 bpm 10/05/2018 Blood Pressure 1: 114/58 Code: 8480-6 Heart Rate 1: 72 bpm SpO2: 98% Temperature: 36.9 (C) / 98.5 (F) Weight: 120 lbs Code: 32119-3 09/28/2018 Blood Pressure 1: 126/64 Code: 8480-6 Heart Rate 1: 76 bpm Respiratory Rate: 20 bpm SpO2: 97% Temperature: 37.2 (C) / 98.9 (F) 09/26/2018 Blood Pressure 1: 132/66 Code: 8480-6 Heart Rate 1: 79 bpm Respiratory Rate: 20 bpm SpO2: 97% Temperature: 37.1 (C) / 98.7 (F) We ight: 119 lbs Code: 41200-8 09/23/2018 Blood Pressure 1: 112/64 Code: 8480-6 Heart Rate 1: 85 bpm Respiratory Rate: 20 bpm SpO2: 95% Temperature: 36.9 (C) / 98.5 (F) We ight: 119 lbs 8 oz Code: 09474-4 09/22/2018 Blood Pressure 1: 116/58 Code: 8480-6 Heart Rate 1: 88 bpm Respiratory Rate: 20 bpm SpO2: 96% Temperature: 37.9 (C) / 100. 2 (F) 09/20/2018 Blood Pressure 1: 136/70 Code: 8480-6 Heart Rate 1: 109 bpm Respiratory Rate: 20 bpm SpO2: 98% Temperature: 37.0 (C) / 98.6 (F) We ight: 122 lbs Code: 46270-6 09/15/2018 Blood Pressure 1: 134/62 Code: 8480-6 Heart Rate 1: 68 bpm Respiratory Rate: 20 bpm SpO2: 97% Temperature: 36.8 (C) / 98.2 (F) We ight: 124 lbs Code: 37755-7 09/08/2018 Blood Pressure 1: 132/62 Code: 8480-6 Heart Rate 1: 83 bpm Respiratory Rate: 18 bpm SpO2: 94% Temperature: 36.9 (C) / 98.4 (F) We ight: 123 lbs Code: 85566-9 09/05/2018 Blood Pressure 1: 142/68 Code: 8480-6 Heart Rate 1: 70 bpm Respiratory Rate: 18 bpm SpO2: 98% Temperature: 37.0 (C) / 98.6 (F) We ight: 123 lbs Code: 76762-3 03/18/2018 Blood Pressure 1: 132/62 Code: 8480-6 Heart Rate 1: 71 bpm Respiratory Rate: 18 bpm SpO2: 95% Temperature: 36.7 (C) / 98.1 (F) We ight: 126 lbs Code: 25897-5 03/03/2018 Blood Pressure 1: 148/60 Code: 8480-6 BMI: 22.5 Code: 29080-5 Heart Rate 1: 72 bpm Height: 5'4" Code: 8302-2 Respiratory Rate: 20 bpm SpO2: 96% Temperature: 36.9 (C) / 98.4 (F) Weight: 130 lbs Code: 61431-2 02/16/2018 Blood Pressure 1: 154/70 Code: 8480-6 BMI: 21.8 Code: 25267-5 Heart Rate 1: 72 bpm Height: 5'4" Code: 8302-2 Respiratory Rate: 20 bpm SpO2: 97% Temperature: 36.9 (C) / 98.5 (F) Weight: 126 lbs Code: 90735-3 01/26/2018 Blood Pressure 1: 126/78 Code: 8480-6 BMI: 21.8 Code: 34038-7 Heart Rate 1: 80 bpm Height: 5'4" Code: 8302-2 Respiratory Rate: 20 bpm SpO2: 97% Temperature: 36.6 (C) / 97.8 (F) Weight: 126 lbs Code: 95113-0 11/30/2017 Blood Pressure 1: 168/78 Code: 8480-6 BMI: 22.1 Code: 17129-2 Heart Rate 1: 64 bpm Height: 5'4" Code: 8302-2 Respiratory Rate: 20 bpm SpO2: 96% Temperature: 37.0 (C) / 98.6 (F) Weight: 128 lbs Code: 77754-2 10/20/2017 Blood Pressure 1: 146/70 Code: 8480-6 BMI: 22.1 Code: 06707-8 Heart Rate 1: 72 bpm Height: 5'4" Code: 8302-2 Respiratory Rate: 20 bpm SpO2: 97% Temperature: 36.7 (C) / 98.1 (F) Weight: 128 lbs Code: 74783-7 08/30/2017 Blood Pressure 1: 134/68 Code: 8480-6 BMI: 22.5 Code: 81228-7 Heart Rate 1: 72 bpm Height: 5'4" Code: 8302-2 Respiratory Rate: 20 bpm Temperatu re: 36.9 (C) / 98.4 (F) Weight: 130 lbs Code: 90952-8 05/25/2017 Blood Pressure 1: 144/60 Code: 8480-6 BMI: 22.3 Code: 80002-8 Heart Rate 1: 64 bpm Height: 5'4" Code: 8302-2 Respiratory Rate: 20 bpm SpO2: 95% Temperature: 36.8 (C) / 98.2 (F) Weight: 129 lbs Code: 06486-1 03/22/2017 Blood Pressure 1: 124/70 Code: 8480-6 BMI: 21.4 Code: 69744-1 Heart Rate 1: 64 bpm Height: 5'4" Code: 8302-2 Respiratory Rate: 20 bpm Temperatu re: 36.9 (C) / 98.4 (F) Weight: 124 lbs Code: 98593-2 03/08/2017 Blood Pressure 1: 142/78 Code: 8480-6 He art Rate 1: 64 bpm 01/18/2017 Blood Pressure 1: 136/64 Code: 8480-6 BMI: 21.9 Code: 50072-9 Heart Rate 1: 68 bpm Height: 5'4" Code: 8302-2 Respiratory Rate: 20 bpm SpO2: 96% Temperature: 36.8 (C) / 98.2 (F) Weight: 127 lbs Code: 25159-4 01/11/2017 Blood Pressure 1: 142/60 Code: 8480-6 Heart Rate 1: 60 bpm SpO2: 96% 01/04/2017 Blood Pressure 1: 148/70 Code: 8480-6 He art Rate 1: 68 bpm 12/28/2016 Blood Pressure 1: 132/64 Code: 8480-6 BMI: 21.4 Code: 23110-3 Heart Rate 1: 68 bpm Height: 5'4" Code: 8302-2 SpO2: 98% Weight: 124 lb s Code: 40186-6 12/24/2016 Blood Pressure 1: 138/62 Code: 8480-6 He art Rate 1: 74 bpm 12/16/2016 Blood Pressure 1: 124/64 Code: 8480-6 BMI: 21.4 Code: 35902-7 Heart Rate 1: 66 bpm Height: 5'4" Code: 8302-2 Respiratory Rate: 20 bpm SpO2: 97% Temperature: 36.8 (C) / 98.2 (F) Weight: 124 lbs Code: 74713-7 11/18/2016 Blood Pressure 1: 156/64 Code: 8480-6 BMI: 22.3 Code: 21654-2 Heart Rate 1: 64 bpm Height: 5'4" Code: 8302-2 Respiratory Rate: 20 bpm SpO2: 98% Temperature: 36.6 (C) / 97.8 (F) Weight: 129 lbs Code: 29050-9 11/04/2016 Blood Pressure 1: 112/48 Code: 8480-6 BMI: 21.6 Code: 56530-3 Heart Rate 1: 70 bpm Height: 5'4" Code: 8302-2 Respiratory Rate: 22 bpm SpO2: 98% Temperature: 36.4 (C) / 97.6 (F) Weight: 125 lbs Code: 27731-0 10/27/2016 Blood Pressure 1: 118/54 Code: 8480-6 BMI: 21.8 Code: 05064-8 Heart Rate 1: 64 bpm Height: 5'4" Code: 8302-2 Respiratory Rate: 20 bpm SpO2: 97% Temperature: 36.9 (C) / 98.4 (F) Weight: 126 lbs Code: 99894-9 10/13/2016 Blood Pressure 1: 138/82 Code: 8480-6 Heart Rate 1: 66 bpm Height: Code: 8302-2 Respiratory Rate: 20 bpm SpO2: 97% Temperature: 36 .6 (C) / 97.9 (F) Weight: Code: 34052-7 10/08/2016 Blood Pressure 1: 124/56 Code: 8480-6 BMI: 22.8 Code: 35352-7 Heart Rate 1: 76 bpm Height: 5'4" Code: 8302-2 Respiratory Rate: 20 bpm SpO2: 96% Temperature: 36.8 (C) / 98.3 (F) Weight: 132 lbs Code: 95488-0 10/05/2016 Blood Pressure 1: 126/58 Code: 8480-6 BMI: 22.6 Code: 09481-5 Heart Rate 1: 60 bpm Height: 5'4" Code: 8302-2 Respiratory Rate: 20 bpm Temperatu re: 36.7 (C) / 98.1 (F) Weight: 131 lbs Code: 69000-3 08/25/2016 Blood Pressure 1: 130/64 Code: 8480-6 Heart Rate 1: 60 bpm Respiratory Rate: 20 bpm SpO2: 96% Temperature: 37.0 (C) / 98.6 (F) We ight: 136 lbs Code: 78768-5 07/28/2016 Blood Pressure 1: 104/78 Code: 8480-6 BMI: 23.5 Code: 19322-0 Heart Rate 1: 82 bpm Height: 5'4" Code: 8302-2 Respiratory Rate: 24 bpm SpO2: 98% Temperature: 36.8 (C) / 98.2 (F) Weight: 136 lbs Code: 32109-7 06/25/2016 Blood Pressure 1: 152/66 Code: 8480-6 He art Rate 1: 60 bpm 06/23/2016 Blood Pressure 1: 198/102 Code: 8480-6 Heart Rat e 1: 62 bpm Respiratory Rate: 20 bpm SpO2: 95% Temperature: 36.6 (C) / 97.9 (F) We ight: 137 lbs Code: 80047-3 06/03/2016 Blood Pressure 1: 154/86 Code: 8480-6 BMI: 23.4 Code: 07396-1 Heart Rate 1: 56 bpm Height: 5'6" Code: 8302-2 Respiratory Rate: 20 bpm SpO2: 96% Temperature: 36.7 (C) / 98.1 (F) Weight: 143 lbs Code: 98934-3 05/26/2016 Blood Pressure 1: 124/68 Code: 8480-6 BMI: 23.6 Code: 62899-2 Heart Rate 1: 76 bpm Height: 5'6" Code: 8302-2 Respiratory Rate: 20 bpm SpO2: 96% Temperature: 36.2 (C) / 97.2 (F) Weight: 144 lbs Code: 24246-9 05/20/2016 Blood Pressure 1: 156/58 Code: 8480-6 BMI: 24.5 Code: 44075-1 Heart Rate 1: 64 bpm Height: 5'4" Code: 8302-2 Respiratory Rate: 20 bpm Temperatu re: 36.9 (C) / 98.4 (F) Weight: 142 lbs Code: 27166-5 03/19/2016 Blood Pressure 1: 144/74 Code: 8480-6 BMI: 25.9 Code: 23814-6 Heart Rate 1: 76 bpm Height: 5'4" Code: 8302-2 Respiratory Rate: 20 bpm Temperatu re: 36.8 (C) / 98.2 (F) Weight: 150 lbs Code: 44417-7 01/13/2016 Blood Pressure 1: 152/72 Code: 8480-6 BMI: 26.8 Code: 36852-5 Heart Rate 1: 64 bpm Height: 5'4" Code: 8302-2 Respiratory Rate: 20 bpm Temperatu re: 36.7 (C) / 98.1 (F) Weight: 155 lbs Code: 33517-4 12/12/2015 Blood Pressure 1: 128/68 Code: 8480-6 BMI: 26.3 Code: 77443-0 Heart Rate 1: 64 bpm Height: 5'4" Code: 8302-2 Respiratory Rate: 20 bpm Temperatu re: 36.8 (C) / 98.3 (F) Weight: 152 lbs Code: 44987-3 12/05/2015 Blood Pressure 1: 174/88 Code: 8480-6 BMI: 26.8 Code: 99458-9 Heart Rate 1: 68 bpm Height: 5'4" Code: 8302-2 Respiratory Rate: 20 bpm Temperatu re: 36.8 (C) / 98.2 (F) Weight: 155 lbs Code: 56951-9 11/27/2015 Blood Pressure 1: 188/82 Code: 8480-6 He art Rate 1: 70 bpm 10/21/2015 Blood Pressure 1: 148/80 Code: 8480-6 BMI: 27.5 Code: 18167-5 Heart Rate 1: 64 bpm Height: 5'4" Code: 8302-2 Respiratory Rate: 20 bpm Temperatu re: 36.7 (C) / 98.1 (F) Weight: 159 lbs Code: 45774-5 10/17/2015 Blood Pressure 1: 140/74 Code: 8480-6 BMI: 27.5 Code: 26624-0 Heart Rate 1: 80 bpm Height: 5'4" Code: 8302-2 Respiratory Rate: 20 bpm Temperatu re: 36.8 (C) / 98.2 (F) Weight: 159 lbs Code: 54171-8 10/07/2015 Blood Pressure 1: 174/80 Code: 8480-6 BMI: 27.5 Code: 45544-0 Heart Rate 1: 82 bpm Height: 5'4" Code: 8302-2 Respiratory Rate: 20 bpm SpO2: 97% Temperature: 36.7 (C) / 98.0 (F) Weight: 159 lbs Code: 92204-1 09/03/2015 Blood Pressure 1: 146/68 Code: 8480-6 BMI: 27.3 Code: 47822-7 Heart Rate 1: 82 bpm Height: 5'4" Code: 8302-2 Respiratory Rate: 20 bpm SpO2: 97% Temperature: 36.6 (C) / 97.9 (F) Weight: 158 lbs Code: 62587-6 08/01/2015 Blood Pressure 1: 144/78 Code: 8480-6 BMI: 26.9 Code: 93474-7 Heart Rate 1: 64 bpm Height: 5'3" Code: 8302-2 Respiratory Rate: 20 bpm Temperatu re: 36.6 (C) / 97.9 (F) Weight: 154 lbs Code: 12512-1 06/27/2015 Blood Pressure 1: 152/76 Code: 8480-6 BMI: 26.7 Code: 54179-2 Heart Rate 1: 80 bpm Height: 5'3" Code: 8302-2 Respiratory Rate: 20 bpm Temperatu re: 36.7 (C) / 98.1 (F) Weight: 153 lbs Code: 40598-7 Functional Status No Functional Status data Reason [...] pain 03/19/2016 edema 03/19/2016 follow up 01/13/[address] [place] [address] high blood pressure 01/13/2016 arrhythmia 01/13/2016 edema 01/13/2016 follow up 12/12/2015 edema 12/12/2015 high blood pressure 12/12/2015 follow up 12/05/2015 [facility] high blood pressure 12/05/2015 arrhythmia 12/05/2015 dyspnea [...] Encounter Performer Location Location Address Codes Date ([id number]) OFFICE/OUTPATIENT VISIT EST Diagnosis: Insomnia[ICD10: G47.00] Diagnosis: Other malaise and fatigue[ICD10: R53.81] Diagnosis: 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] Cony POOLE [employer] [facility] [employer] [address] [place] [phone] CPT- 4: 38896 10/01/2022 ([id number]) OFFICE/OUTPATIENT VISIT EST Diagnosis: Cervicalgia[ICD10: M54.2] Diagnosis: Labile hypertension[ICD10: R09.89] Diagnosis: Paroxysmal atrial fibrillation[ICD10: I48.0] Diagnosis: Hypothyroidism, unspecified[ICD10: E03.9] Cony POOLE DO [facility] [address] [place] [phone] CPT- 4: 39560 08/25/2022 ([id number]) OFFICE/OUTPATIENT VISIT EST Diagnosis: Dyspnea on exertion[ICD10: R06.09] Diagnosis: Chronic atrial fibrillation[ICD10: I48.20] Diagnosis: Essential hypertension[ICD10: I10] Diagnosis: COPD (chronic obstructive pulmonary disease)[ICD10: J44.9] Cony POOLE DO [address] [address] CPT-4: 51015 08/11/2022 ([id number]) OFFICE/OUTPATIENT VISIT EST Diagnosis: Essential (primary) hypertension[ICD10: I10] Diagnosis: Edema[ICD10: R60.9] Diagnosis: Bradycardia[ICD10: R00.1] Diagnosis: Atrial fibrillation[ICD10: I48.91] Cony Colbybonyrhianna OCONNELL DEVIN Jeanine POOLE DO [address] [address] CPT-4: 30607 07/28/2022 ([id number]) OFFICE/OUTPATIENT VISIT EST Diagnosis: URI (upper respiratory infection)[ICD10: J06.9] Diagnosis: Chronic airway obstruction, not elsewhere classified[ICD10: J44.9] Cony POOLE DO [address] [address] CPT-4: 24595 07/14/2022 ([id number]) OFFICE/OUTPATIENT VISIT EST Diagnosis: Atrial fibrillation[ICD10: I48.91] Diagnosis: Essential (primary) hypertension[ICD10: I10] Diagnosis: Hypothyroidism[ICD10: E03.9] Cony POOLE DO [address] [address] CPT-4: 59337 06/23/2022 ([id number]) OFFICE/OUTPATIENT VISIT EST Diagnosis: Essential (primary) hypertension[ICD10: I10] Diagnosis: Chronic atrial fibrillation[ICD10: I48.20] Diagnosis: Chronic airway obstruction, not elsewhere classified[ICD10: J44.9] Diagnosis: Hypothyroidism[ICD10: E03.9] Cony Bowmanrayna CONY POOLE DO [address] [address] CPT-4: 75030 05/25/2022 ([id number]) OFFICE/OUTPATIENT VISIT EST Diagnosis: COPD (chronic obstructive pulmonary disease)[ICD10: J44.9] Diagnosis: Essential hypertension[ICD10: I10] Diagnosis: Hypothyroidism[ICD10: E03.9] Diagnosis: Allergic rhinitis[ICD10: J30.9] Diagnosis: Unsteady gait[ICD10: R26.81] Cony POOLE [address] [address] CPT-4: 05429 03/19/2022 ([id number]) OFFICE/OUTPATIENT VISIT EST Diagnosis: COPD exacerbation[ICD10: J44.1] Diagnosis: COPD (chronic obstructive pulmonary disease)[ICD10: J44.9] Cony POOLE [address] [address] CPT-4: 50866 02/16/2022 ([id number]) OFFICE/OUTPATIENT VISIT EST Diagnosis: COPD exacerbation[ICD10: J44.1] Cony POOLE DO [address] [address] CPT-4: 24936 2022 ([id number]) OFFICE/OUTPATIENT VISIT EST Diagnosis: Contact with and (suspected) exposure to other viral communicable diseases[ICD10: Z20.828] Diagnosis: COPD with acute lower respiratory infection[ICD10: J44.0] Keeley Alex CONY POOLE [address] [address] CPT-4: 22203 01/27/2022 ([id number]) OFFICE/OUTPATIENT VISIT EST Diagnosis: Essential (primary) hypertension[ICD10: I10] Diagnosis: Hypothyroidism, unspecified[ICD10: E03.9] Diagnosis: Chronic obstructive pulmonary disease, unspecified[ICD10: J44.9] Cony POOLE [address] [address] CPT-4: 00357 10/28/2021 ([id number]) OFFICE/OUTPATIENT VISIT EST Diagnosis: Essential (primary) hypertension[ICD10: I10] Diagnosis: Atrial fibrillation[ICD10: I48.91] Diagnosis: Edema[ICD10: R60.9] Diagnosis: Mixed hyperlipidemia[ICD10: E78.2] Diagnosis: Hypothyroidism[ICD10: E03.9] Diagnosis: Dyspnea[ICD10: R06.00] Diagnosis: Allergic rhinitis, unspecified[ICD10: J30.9] Cony POOLE [facility] [address] [place] [address] CPT- 4: 00495 09/23/2021 ([id number]) OFFICE/OUTPATIENT VISIT EST Diagnosis: Essential (primary) hypertension[ICD10: I10] Diagnosis: Edema[ICD10: R60.9] Diagnosis: Stasis dermatitis[ICD10: I87.2] Diagnosis: Dyspnea[ICD10: R06.00] Cony Albarran DO [facility] [address] [place] [address] CPT-4: 69134 08/21/2021 ([id number]) OFFICE/OUTPATIENT VISIT EST Diagnosis: Essential (primary) hypertension[ICD10: I10] Diagnosis: Atrial fibrillation[ICD10: I48.91] Diagnosis: Edema[ICD10: R60.9] Cony POOLE DO [facility] [address] [place] [address] CPT-4: 88817 07/30/19 ([id number]) OFFICE/OUTPATIENT VISIT EST Diagnosis: Essential hypertension[ICD10: I10] Diagnosis: 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] Diagnosis: Reactive airway disease[ICD10: J45.909] Diagnosis: Sciatica[ICD10: M54.30] Cony CASTRO DO [facility] [address] [place] [address] CPT-4: 78496 06/19/2021 ([id number]) NURSE/OUTPATIENT VISIT EST Diagnosis: Urinary tract infection[ICD10: N39.0] Cony POOLE [address] [address] CPT-4: 83553 05/12/2021 ([id number]) OFFICE/OUTPATIENT VISIT EST Diagnosis: Edema leg[ICD10: R60.0] Diagnosis: Recurrent UTI[ICD10: N39.0] 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] Cony POOLE DO [address] [address] CPT-4: 15726 05/08/2021 ([id number]) OFFICE/OUTPATIENT VISIT EST Diagnosis: Cervical radiculopathy[ICD10: M54.12] Diagnosis: 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] Cony Gradyrhianna CONY POOLE DO [address] [address] CPT- 4: 06706 04/28/2021 ([id number]) OFFICE/OUTPATIENT VISIT EST Diagnosis: Other fatigue[ICD10: R53.83] Diagnosis: Hypothyroidism[ICD10: E03.9] Diagnosis: Vitamin B12 deficiency anemia, unspecified[ICD10: D51.9] Keeley POOLE DO [address] [address] CPT-4: 63310 03/19/2021 ([id number]) NURSE/OUTPATIENT VISIT EST Diagnosis: Encounter for immunization[ICD10: Z23] Cony Colbyrayna QUINCY JESSE POOLE DO [address] [address] CPT-4: 08053 02/27/2021 ([id number]) OFFICE/OUTPATIENT VISIT EST Diagnosis: Atrial fibrillation[ICD10: I48.91] Diagnosis: Essential (primary) hypertension[ICD10: I10] Diagnosis: Hypothyroidism[ICD10: E03.9] Diagnosis: Lymphadenopathy of right cervical region[ICD10: R59.0] Diagnosis: Osteopenia[ICD10: M85.80] Cony AVERY Jeanine ORE NDER DO [address] [address] CPT-4: 61880 02/06/2021 ([id number]) OFFICE/OUTPATIENT VISIT EST Diagnosis: Skin lesion of right leg[ICD10: L98.9] Keeley Solorzano ORENDER DO [address] [address] CPT-4: 87187 12/20/2020 ([id number]) OFFICE/OUTPATIENT VISIT EST Diagnosis: Nontraumatic blister of skin[ICD10: R23.8] Keeley Solorzano ORENDER DO [address] [address] CPT- 4: 05842 12/11/2020 ([id number]) OFFICE/OUTPATIENT VISIT EST Diagnosis: Nocturia[ICD10: R35.1] Diagnosis: Essential hypertension[ICD10: I10] Cony BELTRAN S. ORENDER DO [address] [address] CPT-4: 79501 11/11/2020 ([id number]) OFFICE/OUTPATIENT VISIT EST Diagnosis: Essential hypertension[ICD10: I10] Diagnosis: Paroxysmal atrial fibrillation[ICD10: I48.0] Diagnosis: Hypothyroidism[ICD10: E03.9] Cony AVERY AbigailMelina COLBYNDER DO [address] [address] CPT-4: 59509 07/29/2020 ([id number]) OFFICE/OUTPATIENT VISIT EST Diagnosis: Dizziness and giddiness[ICD10: R42] Diagnosis: Essential hypertension[ICD10: I10] Cony BELTRAN S. ORENDER DO [address] [address] CPT-4: 36516 06/24/2020 ([id number]) OFFICE/OUTPATIENT VISIT EST Diagnosis: Weakness[ICD10: R53.1] Apoorva Mohit AVERY AbigailMelina COLBYNDER DO [address] [address] CPT-4: 15647 06/21/19 21 ([id number]) OFFICE/OUTPATIENT VISIT EST Diagnosis: URI (upper respiratory infection)[ICD10: J06.9] Apoorva Rueda [facility] [address] [place] [address] CPT-4: 24698 03/19/2020 ([id number]) OFFICE/OUTPATIENT VISIT EST Diagnosis: Essential (primary) hypertension[ICD10: I10] Diagnosis: Atrial fibrillation status post cardioversion[ICD10: I48.91] Diagnosis: Right upper lobe pulmonary nodule[ICD10: R91.1] Cony POOLE [address] [address] CPT- 4: 20471 02/29/2020 ([id number]) OFFICE/OUTPATIENT VISIT EST Diagnosis: Stasis dermatitis[ICD10: I87.2] Apoorva POOLE [address] [address] CPT-4: 43457 02/22/2020 ([id number]) NURSE/OUTPATIENT VISIT EST Diagnosis: Urinary tract infection, site not specified[ICD10: N39.0] Cony POOLE [address] [address] CPT-4: 24646 02/20/2020 ([id number]) OFFICE/OUTPATIENT VISIT EST Diagnosis: Urinary tract infection[ICD10: N39.0] Apoorva POOLE [address] [address] CPT-4: 83280 02/13/2020 ([id number]) OFFICE/OUTPATIENT VISIT EST Diagnosis: Neck pain[ICD10: M54.2] Diagnosis: Muscle spasm[ICD10: M62.838] Cony POOLE DO [address] [address] CPT-4: 29544 2020 ([id number]) OFFICE/OUTPATIENT VISIT EST Diagnosis: Atrial fibrillation[ICD10: I48.91] Diagnosis: Essential hypertension[ICD10: I10] Diagnosis: Right wrist pain[ICD10: M25.531] Conyjeannette Poole CONY Jeanine POOLE DO [address] [address] CPT-4: 82081 01/22/2020 ([id number]) OFFICE/OUTPATIENT VISIT EST Diagnosis: Paroxysmal atrial fibrillation[ICD10: I48.0] Diagnosis: Essential hypertension[ICD10: I10] Conyjeanntete Poole ANISH POOLE DO [address] [address] CPT-4: 85135 12/26/2019 ([id number]) OFFICE/OUTPATIENT VISIT EST Diagnosis: Lung nodule[ICD10: R91.1] Diagnosis: CHF (congestive heart failure)[ICD10: I50.9] Diagnosis: Atrial fibrillation[ICD10: I48.91] Apoorva Rueda DANTESHA POOLE DO [address] [address] CPT-4: 17326 11/27/2019 ([id number]) OFFICE/OUTPATIENT VISIT EST Diagnosis: Urinary tract infection[ICD10: N39.0] Diagnosis: Hypotension[ICD10: I95.9] Cony Colbyrayna CONY Jeanine WAY DO [address] [address] CPT-4: 07810 11/09/2019 ([id number]) OFFICE/OUTPATIENT VISIT EST Diagnosis: Left leg swelling[ICD10: M79.89] Cony Colbyrayna HOWELLCONY Jeanine POOLE DO [address] [address] CPT-4: 97625 10/10/2019 ([id number]) OFFICE/OUTPATIENT VISIT EST Diagnosis: Muscle spasm[ICD10: M62.838] Cony AVERY AbigailMelina NGOC PORTER [address] [address] CPT-4: 11104 08/25/2019 ([id number]) OFFICE/OUTPATIENT VISIT EST Diagnosis: Low back pain[ICD10: M54.5] Diagnosis: Sciatica of left side[ICD10: M54.32] [facility] [address] [place] [address] CPT-4: 11847 07/13/2019 ([id number]) OFFICE/OUTPATIENT VISIT EST Diagnosis: Pneumonia due to infectious organism[ICD10: J18.9] Cony POOLE DO [address] [address] CPT- 4: 13504 05/18/2019 ([id number]) OFFICE/OUTPATIENT VISIT EST Diagnosis: Pneumonia due to infectious organism[ICD10: J18.9] Cony POOLE DO [address] [address] CPT- 4: 85282 05/17/2019 ([id number]) NURSE/OUTPATIENT VISIT EST Diagnosis: Urinary tract infection[ICD10: N39.0] Cony BOWMANNDER DO [address] [address] CPT-4: 82017 05/08/2019 ([id number]) NURSE/OUTPATIENT VISIT EST Diagnosis: Acute pharyngitis[ICD10: J02.9] Diagnosis: Altered taste[ICD10: R43.2] Cony CONDON DO [address] [address] CPT-4: 99852 05/08/2019 ([id number]) OFFICE/OUTPATIENT VISIT EST Diagnosis: Urinary tract infection, site not specified[ICD10: N39.0] Diagnosis: Stomatitis and mucositis with change of taste[ICD10: K12.1] [facility] [address] [place] [address] CPT-4: 54224 04/24/2019 ([id number]) NURSE/OUTPATIENT VISIT EST Diagnosis: Hematuria[ICD10: R31.9] Cony BOWMANND ER DO [address] [address] CPT-4: 90285 04/21/2019 ([id number]) OFFICE/OUTPATIENT VISIT EST Diagnosis: Oral mucositis (ulcerative), unspecified[ICD10: K12.30] Diagnosis: Stomatitis and mucositis with change of taste[ICD10: K12.1] Cony POOLE DO [address] [address] CPT-4: 33063 04/10/2019 ([id number]) NURSE/OUTPATIENT VISIT EST Diagnosis: FLU VACCINE[ICD10: Z23] Cony CASTRO DO [address] [address] CPT-4: 93015 03/02/2019 ([id number]) OFFICE/OUTPATIENT VISIT EST Diagnosis: Essential (primary) hypertension[ICD10: I10] Diagnosis: Other fatigue[ICD10: R53.83] Diagnosis: Hypothyroidism, unspecified[ICD10: E03.9] Diagnosis: Nocturia[ICD10: R35.1] Cony Albarran DO [address] [address] CPT-4: 51797 02/16/2019 ([id number]) NURSE/OUTPATIENT VISIT EST Diagnosis: Essential (primary) hypertension[ICD10: I10] Cony POOLE DO [address] [address] CPT- 4: 48236 01/24/2019 ([id number]) OFFICE/OUTPATIENT VISIT EST Diagnosis: Acute upper respiratory infection, unspecified[ICD10: J06.9] Apoorva POOLE DO [address] [address] CPT-4: 46389 12/20/2018 ([id number]) OFFICE/OUTPATIENT VISIT EST Diagnosis: Paroxysmal atrial fibrillation[ICD10: I48.0] Diagnosis: Other fatigue[ICD10: R53.83] Diagnosis: Essential (primary) hypertension[ICD10: I10] Diagnosis: Hypothyroidism, unspecified[ICD10: E03.9] Cony POOLE DO [address] [address] CPT- 4: 61987 12/12/2018 ([id number]) OFFICE/OUTPATIENT VISIT EST Diagnosis: Essential (primary) hypertension[ICD10: I10] Diagnosis: Allergic rhinitis due to pollen[ICD10: J30.1] Cony POOLE DO [address] [address] CPT- 4: 66868 10/19/2018 ([id number]) OFFICE/OUTPATIENT VISIT EST Diagnosis: Allergic rhinitis due to pollen[ICD10: J30.1] Diagnosis: Essential (primary) hypertension[ICD10: I10] Cony POOLE DO [address] [address] CPT- 4: 10074 10/05/2018 ([id number]) OFFICE/OUTPATIENT VISIT EST Diagnosis: Allergic rhinitis due to pollen[ICD10: J30.1] Diagnosis: Other fatigue[ICD10: R53.83] Diagnosis: Hematuria, unspecified[ICD10: R31.9] Cony POOLE DO [address] [address] CPT-4: 74244 09/28/2018 ([id number]) OFFICE/OUTPATIENT VISIT EST Diagnosis: Allergic rhinitis due to pollen[ICD10: J30.1] Diagnosis: Cough[ICD10: R05] Diagnosis: Dermatitis, unspecified[ICD10: L30.9] Diagnosis: Slow transit constipation[ICD10: K59.01] Cony POOLE DO [address] [address] CPT- 4: 86195 09/26/2018 ([id number]) OFFICE/OUTPATIENT VISIT EST Diagnosis: Acute bronchitis, unspecified[ICD10: J20.9] Diagnosis: Other specified respiratory disorders[ICD10: J98.8] Merry Diaz CONY POOLE DO [address] [address] CPT- 4: 01259 09/23/2018 ([id number]) OFFICE/OUTPATIENT VISIT EST Diagnosis: Acute bronchitis, unspecified[ICD10: J20.9] Diagnosis: Fever, unspecified[ICD10: R50.9] Cony POOLE DO [address] [address] CPT-4: 32583 09/22/2018 ([id number]) OFFICE/OUTPATIENT VISIT EST Diagnosis: Tachycardia, unspecified[ICD10: R00.0] Diagnosis: Dysuria[ICD10: R30.0] Diagnosis: Personal history of urinary (tract) infections[ICD10: Z87.440] Merry Emily POOLE DO [address] [address] CPT-4: 56819 09/20/2018 ([id number]) OFFICE/OUTPATIENT VISIT EST Diagnosis: Other fatigue[ICD10: R53.83] Diagnosis: Hypothyroidism, unspecified[ICD10: E03.9] Cony POOLE DO [address] [address] CPT- 4: 98229 09/15/2018 ([id number]) NURSE/OUTPATIENT VISIT EST Diagnosis: Urinary tract infection, site not specified[ICD10: N39.0] Cony POOLE DO [address] [address] CPT-4: 11950 09/14/2018 ([id number]) OFFICE/OUTPATIENT VISIT EST Diagnosis: Chronic fatigue, unspecified[ICD10: R53.82] Diagnosis: Essential (primary) hypertension[ICD10: I10] Diagnosis: Hypothyroidism, unspecified[ICD10: E03.9] Diagnosis: Paroxysmal atrial fibrillation[ICD10: I48.0] Cony POOLE DO [address] [address] CPT- 4: 62064 09/08/2018 ([id number]) OFFICE/OUTPATIENT VISIT EST Diagnosis: Dysuria[ICD10: R30.0] Diagnosis: Personal history of urinary (tract) infections[ICD10: Z87.440] Merry POOLE DO [address] [address] CPT-4: 93913 09/05/2018 ([id number]) NURSE/OUTPATIENT VISIT EST Diagnosis: Essential (primary) hypertension[ICD10: I10] Diagnosis: Edema, unspecified[ICD10: R60.9] Cony POOLE DO [address] [address] CPT-4: 18336 04/20/2018 ([id number]) OFFICE/OUTPATIENT VISIT EST Diagnosis: FLU VACCINE[ICD10: Z23] Diagnosis: Hypothyroidism, unspecified[ICD10: E03.9] Diagnosis: Essential (primary) hypertension[ICD10: I10] Diagnosis: Localized edema[ICD10: R60.0] Cony POOLE DO [address] [address] CPT-4: 07525 03/03/2018 ([id number]) OFFICE/OUTPATIENT VISIT EST Diagnosis: Atopic dermatitis, unspecified[ICD10: L20.9] Apoorva POOLE DO [address] [address] CPT- 4: 22406 02/16/2018 ([id number]) OFFICE/OUTPATIENT VISIT EST Diagnosis: Pressure ulcer of right heel, stage 1[ICD10: L89.611] Diagnosis: Other fatigue[ICD10: R53.83] Apoorva POOLE DO [address] [address] CPT-4: 02728 01/26/2018 OFFICE/OUTPATIENT VISIT EST Diagnosis: Hypothyroidism, unspecified[ICD10: E03.9] Diagnosis: Essential (primary) hypertension[ICD10: I10] Diagnosis: Localized edema[ICD10: R60.0] Diagnosis: Other fatigue[ICD10: R53.83] Cony POOLE DO [address] [address] CPT-4: 04117 11/30/2017 ([id number]) OFFICE/OUTPATIENT VISIT EST Diagnosis: Other seborrheic keratosis[ICD10: L82.1] Cony POOLE DO [address] [address] CPT- 4: 35153 11/04/2017 ([id number]) OFFICE/OUTPATIENT VISIT EST Diagnosis: Achilles tendinitis, right leg[ICD10: M76.61] Apoorva POOLE DO [address] [address] CPT- 4: 73886 10/20/2017 ([id number]) OFFICE/OUTPATIENT VISIT EST Diagnosis: Essential (primary) hypertension[ICD10: I10] Diagnosis: Hypothyroidism, unspecified[ICD10: E03.9] Diagnosis: Weakness[ICD10: R53.1] Cony Albarran [address] [address] CPT-4: 81737 08/30/2017 ([id number]) OFFICE/OUTPATIENT VISIT EST Diagnosis: Hypothyroidism, unspecified[ICD10: E03.9] Diagnosis: Essential (primary) hypertension[ICD10: I10] Diagnosis: Paroxysmal atrial fibrillation[ICD10: I48.0] Cony POOLE [address] [address] CPT- 4: 15090 05/25/2017 ([id number]) OFFICE/OUTPATIENT VISIT EST Diagnosis: Essential (primary) hypertension[ICD10: I10] Diagnosis: Hypothyroidism, unspecified[ICD10: E03.9] Cony POOLE [address] [address] CPT- 4: 07285 03/22/2017 ([id number]) OFFICE/OUTPATIENT VISIT EST Diagnosis: FLU VACCINE[ICD10: Z23] Cony CASTRO [address] [address] CPT-4: 00538 03/08/2017 ([id number]) OFFICE/OUTPATIENT VISIT EST Diagnosis: Essential (primary) hypertension[ICD10: I10] Diagnosis: Hypothyroidism, unspecified[ICD10: E03.9] Cony POOLE DO [address] [address] CPT- 4: 81369 01/18/2017 ([id number]) OFFICE/OUTPATIENT VISIT EST Diagnosis: Essential (primary) hypertension[ICD10: I10] Diagnosis: Localized edema[ICD10: R60.0] Diagnosis: Hypotension, unspecified[ICD10: I95.9] Cony POOLE DO [address] [address] CPT-4: 16970 12/16/2016 ([id number]) OFFICE/OUTPATIENT VISIT EST Diagnosis: Hypothyroidism, unspecified[ICD10: E03.9] Diagnosis: Essential (primary) hypertension[ICD10: I10] Cony POOLE DO [address] [address] CPT- 4: 28284 11/18/2016 ([id number]) OFFICE/OUTPATIENT VISIT EST Diagnosis: Hypotension due to drugs[ICD10: I95.2] Diagnosis: Lymphangitis[ICD10: I89.1] Diagnosis: Hypothyroidism, unspecified[ICD10: E03.9] Cony POOLE DO [address] [address] CPT- 4: 65648 11/04/2016 ([id number]) OFFICE/OUTPATIENT VISIT EST Diagnosis: Hypotension due to drugs[ICD10: I95.2] Diagnosis: Other fatigue[ICD10: R53.83] Cony POOLE DO [employer] [address] [place] [address] CPT-4: 71545 10/27/2016 ([id number]) OFFICE/OUTPATIENT VISIT EST Diagnosis: Other symptoms and signs involving the genitourinary system[ICD10: R39.89] Cony POOLE DO [address] [address] CPT-4: 53696 10/26/2016 OFFICE/OUTPATIENT VISIT EST Diagnosis: Venous insufficiency (chronic) (peripheral)[ICD10: I87.2] Diagnosis: Lymphangitis[ICD10: I89.1] Diagnosis: Cellulitis of left lower limb[ICD10: L03.116] Cony Bowmanrayna AVERY AbigailMelina NGOC DO [address] [address] CPT- 4: 99621 10/13/2016 OFFICE/OUTPATIENT VISIT EST Diagnosis: Cellulitis of left lower limb[ICD10: L03.116] Diagnosis: Lymphangitis[ICD10: I89.1] Cony Solorzano ERIC RHIANNA [address] [address] CPT-4: 73906 10/08/2016 ([id number]) OFFICE/OUTPATIENT VISIT EST Diagnosis: Hypothyroidism, unspecified[ICD10: E03.9] Diagnosis: Essential (primary) hypertension[ICD10: I10] Diagnosis: Other fatigue[ICD10: R53.83] Diagnosis: Cellulitis of left lower limb[ICD10: L03.116] Cony Solorzano COLBYRAYNA [address] [address] CPT- 4: 72212 10/05/2016 ([id number]) OFFICE/OUTPATIENT VISIT EST Diagnosis: Essential (primary) hypertension[ICD10: I10] Diagnosis: Localized edema[ICD10: R60.0] Diagnosis: Other fatigue[ICD10: R53.83] Cony Colbyrayna Solorzano NGOC DO [address] [address] CPT-4: 73247 08/25/2016 ([id number]) OFFICE/OUTPATIENT VISIT EST Diagnosis: Essential (primary) hypertension[ICD10: I10] Diagnosis: Hypothyroidism, unspecified[ICD10: E03.9] Diagnosis: Weakness[ICD10: R53.1] Cony Albarran DO [address] [address] CPT-4: 09345 07/28/2016 ([id number]) OFFICE/OUTPATIENT VISIT EST Diagnosis: Essential (primary) hypertension[ICD10: I10] Merle POOLE [address] [address] CPT- 4: 32692 06/23/2016 ([id number]) OFFICE/OUTPATIENT VISIT EST Diagnosis: Cough[ICD10: R05] Diagnosis: Essential (primary) hypertension[ICD10: I10] Merle POOLE [address] [address] CPT- 4: 73631 06/03/2016 ([id number]) OFFICE/OUTPATIENT VISIT EST Diagnosis: Acute upper respiratory infection, unspecified[ICD10: J06.9] Diagnosis: Fever, unspecified[ICD10: R50.9] Merle GRADY[address] [address] CPT-4: 51822 05/26/2016 ([id number]) OFFICE/OUTPATIENT VISIT EST Diagnosis: Essential (primary) hypertension[ICD10: I10] Diagnosis: Paroxysmal atrial fibrillation[ICD10: I48.0] Diagnosis: Venous insufficiency (chronic) (peripheral)[ICD10: I87.2] Diagnosis: Primary insomnia[ICD10: F51.01] Diagnosis: Hypothyroidism, unspecified[ICD10: E03.9] Cony GRADY[address] [address] CPT- 4: 90975 05/20/2016 ([id number]) OFFICE/OUTPATIENT VISIT EST Diagnosis: Pain in right ankle and joints of right foot[ICD10: M25.571] Diagnosis: Venous insufficiency (chronic) (peripheral)[ICD10: I87.2] Diagnosis: FLU VACCINE[ICD10: Z23] Cony GRADY [address] [address] CPT-4: 82353 03/19/2016 ([id number]) OFFICE/OUTPATIENT VISIT EST Diagnosis: Essential (primary) hypertension[ICD10: I10] Diagnosis: Localized edema[ICD10: R60.0] Diagnosis: Paroxysmal atrial fibrillation[ICD10: I48.0] Diagnosis: PNEUMOCOCCAL VACCINE[ICD10: Z23] Cony POOLE [address] [address] CPT-4: 57339 01/13/2016 ([id number]) OFFICE/OUTPATIENT VISIT EST Diagnosis: Hypo-osmolality and hyponatremia[ICD10: E87.1] Diagnosis: Essential (primary) hypertension[ICD10: I10] Diagnosis: Paroxysmal atrial fibrillation[ICD10: I48.0] Cony POOLE [address] [address] CPT- 4: 53106 12/12/2015 ([id number]) OFFICE/OUTPATIENT VISIT EST Diagnosis: Essential (primary) hypertension[ICD10: I10] Diagnosis: Edema, unspecified[ICD10: R60.9] Diagnosis: Hypo-osmolality and hyponatremia[ICD10: E87.1] Cony POOLE [address] [address] CPT- 4: 81136 12/05/2015 ([id number]) OFFICE/OUTPATIENT VISIT EST Diagnosis: Hypo-osmolality and hyponatremia[ICD10: E87.1] Diagnosis: Hematuria, unspecified[ICD10: R31.9] Cony POOLE [address] [address] CPT-4: 19958 11/27/2015 ([id number]) OFFICE/OUTPATIENT VISIT EST Diagnosis: Essential (primary) hypertension[ICD10: I10] Diagnosis: Edema, unspecified[ICD10: R60.9] Diagnosis: Dizziness and giddiness[ICD10: R42] Merle RAMON PETROS POOLE [address] [address] CPT-4: 99427 10/21/2015 ([id number]) OFFICE/OUTPATIENT VISIT EST Diagnosis: Essential (primary) hypertension[ICD10: I10] Diagnosis: Localized edema[ICD10: R60.0] Diagnosis: Paroxysmal atrial fibrillation[ICD10: I48.0] Cony AVERY AbigailMelina NGOC [address] [address] CPT- 4: 82724 10/17/2015 ([id number]) OFFICE/OUTPATIENT VISIT EST Diagnosis: Essential (primary) hypertension[ICD10: I10] Diagnosis: Tachycardia, unspecified[ICD10: R00.0] Diagnosis: Hypothyroidism, unspecified[ICD10: E03.9] Diagnosis: Palpitations[ICD10: R00.2] Merle Hernandez CONY Solorzano ERIC RHIANNA [address] [address] CPT-4: 16513 10/07/2015 ([id number]) OFFICE/OUTPATIENT VISIT EST Diagnosis: Acute upper respiratory infection, unspecified[ICD10: J06.9] Merle Hernandez CONY Solorzano NGOC [address] [address] CPT-4: 79198 09/03/2015 ([id number]) OFFICE/OUTPATIENT VISIT EST Diagnosis: Essential (primary) hypertension[ICD10: I10] Cony Solorzano NGOC [address] [address] CPT- 4: 72121 08/01/2015 OFFICE/OUTPATIENT VISIT NEW Diagnosis: Essential (primary) hypertension[ICD10: I10] Diagnosis: Hypothyroidism, unspecified[ICD10: E03.9] Diagnosis: Family history of malignant neoplasm of breast[ICD10: Z80.3] Cony AVERY AbigailMelina NGOC [address] [address] CPT-4: 17972 06/27/2015 Plan of Care Planned Activity Notes Codes Status Date Visit Diagnosis Plan: Stress and adjustment reaction D iscussion: Trial of effexor XR 37.5mg po q HS Fwup 1month ICD-9 : 309.89 ICD-10 : F43.29 10/01/2022 Appointment: Cony Poole WPtel: [phone] [facility] [place] [facility] [place] 10/01/2022 Visit Diagnosis Plan: Hypothyroidism, [...] : R09.89 08/25/2022 Appointment: Cony Poole WPtel: [facility] [place] FOLLOW UP 08/25/2022 Care Plan: X-RAY EXAM NECK SPINE 4/5VWS LOINC : 37510-4 Pending 08/25/2022 Visit Diagnosis Plan: Chronic atrial [...] : J44.9 08/11/2022 Appointment: Cony Poole WPtel: [facility] [place] [place] FOLLOW UP 08/11/2022 Appointment: Cony Poole WPtel: [facility] [place] [facility] [place] RESCHEDULED 08/11/2022 Visit Diagnosis Plan: Edema [...] : R00.1 07/28/2022 Appointment: Cony Poole WPtel: [facility]8 [phone] FOLLOW UP 07/28/2022 Patient Education: hydralazine- [employer] Coupon [id number] Completed 07/28/2022 Patient Education: losartan- [employer] Coupon [id number] Completed 07/28/2022 Visit Diagnosis Plan: URI (upper respiratory infection ) Discussion: Influenza A and B and Covid negative Z-pack Continue budesonide and perforomist and add albuterol at least TID Notify if worsening ICD-9 : 465.9 ICD-10 : J06.9 07/14/2022 Appointment: Cony Poole WPtel: [facility] [place] [facility] AC[place] ILLNESS 07/14/2022 Visit Diagnosis Plan: Hypothyroidism Discussion: Nabil mendoza syntrhoid to 88mcg M-F and 75mcg on [...] : I10 06/23/2022 Appointment: Cony Poole WPtel: [facility]0 [place] [phone] FOLLOW UP 06/23/2022 Visit Diagnosis Plan: Hypothyroidism [...] : I10 05/25/2022 Appointment: Cony Poole WPtel: [facility]3 [place] [phone] ACUTE ILLNESS 05/25/2022 Patient Education: losartan- [employer] Coupon [id number] [email or web address]/[email or web address] Completed 05/25/2022 Visit Diagnosis Plan: Essential hypertension [...] E03.9 03/19/2022 Appointment: Cony Poole WPtel: [phone] [phone] US FOLLOW UP 03/19/2022 Visit Diagnosis Plan: COPD exacerbation Discussion: Co ntinue budesonide/performomist and use albuterol prn as rescue Go for COVID booster Flu shot in March Fwup 1month ICD-9 : 491.21 ICD-10 : J44.1 02/16/2022 Appointment: Cony Poole WPtel: [phone] [facility] [place] [facility] [place] FOLLOW UP 02/16/2022 Visit Diagnosis Plan: COPD exacerbation Discussion: Co ntinue breztri 2p BID and albuterol prn Will switch to Nebulizer with Budesonide 0.5mg BID and Perforomist 20mcg BID with duoneb q4hrs prn Fwup 2 weeks unless worsening ICD-9 : 491.21 ICD-10 : J44.1 2022 Appointment: Cony Poole WPtel: [phone] [facility] [place] [facility] [place] FOLLOW UP 2022 Visit Diagnosis Plan: [...] 01/27/2022 Appointment: Keeley Johnson WPtel: [phone] [phone] ACUTE ILLNESS 01/27/2022 Patient Education: Patient Medication Summary Completed 01/27/2022 Referral: Soy Rodriguez WPtel: [facility] [address] [place] [address] [address] [id number] 09/30 - for office Completed 10/29/2021 Visit [...] E03.9 10/28/2021 Appointment: Cony Poole WPtel: [phone] [id number] FOLLOW UP 10/28/2021 Visit Diagnosis Plan: Edema [...] : R06.00 09/23/2021 Appointment: Cony Poole WPtel: [address] [place] [address] US FOLLOW UP 09/23/2021 Appointment: Cony Poole WPtel: [address] [place], [place] [phone] US CANCELED 09/08/2021 Visit Diagnosis Plan: Essential [...] : I87.2 08/21/2021 Appointment: Cony Poole WPtel: [address] [place], [place] [phone] US FOLLOW UP 08/21/2021 Appointment: Keeley Johnson WPtel: [phone] [phone] US CANCELED 08/12/2021 Visit Diagnosis Plan: Essential (primary) hypertension Discussion: Stable ICD-9 : 401.9 ICD-10 : I10 07/30/2021 Visit Diagnosis Plan: Atrial fibrillation Discussion: On cardizem and eliquis and rate controlled and asympotomatic Sees Dr Lopez in 2 weeks ICD-9 : 427.31 ICD-10 : I48.91 07/30/2021 Appointment: Cony Poole WPtel: [address] [place], [place] [phone] US FOLLOW UP 07/30/2021 Appointment: Cony Poole WPtel: [address] [place], [place] [phone] due to weather CANCELED 07/24/2021 Visit Diagnosis [...] : J45.909 06/19/2021 Appointment: Cony Poole WPtel: [address] [place], [place] [phone] FOLLOW UP 06/19/2021 Appointment: Cony Poole WPtel: [address] [place], [place] [phone] US seen 05/08/21 at 1 pm by doctor as appt opened up CANCELED 05/14/2021 Appointment: Cony Poole WPtel: [address] [place], [place] [phone] UA 05/12/2021 Visit Diagnosis Plan: Recurrent UTI Discussion: Will c heck UA ICD-9 : 599.0 ICD-10 : N39.0 05/08/2021 Visit Diagnosis Plan: Right-sided carotid artery obstr uction Discussion: Surgery is tentatively scheduled on May 26 ICD-9 : 433.10 ICD-10 : I65.21 05/08/2021 Visit Diagnosis Plan: Edema leg Discussion: Wearing co mpression stockings Discussed likely from increased dose of cardizem ICD-9 : 782.3 ICD-10 : R60.0 05/08/2021 Appointment: Cony Poole WPtel: [address] [place], [place] [phone] ACUTE ILLNESS 05/08/2021 Visit Diagnosis Plan: Cervical radiculopathy Discussio n: Start PT ICD-9 : 723.4 ICD-10 : M54.12 04/28/2021 Visit Diagnosis Plan: Stress and adjustment reaction D iscussion: Stress Reducers Discussed Discussion: Stress Reducers Discussed meds ICD-9 : 309.89 ICD-10 : F43.29 04/28/2021 Appointment: Cony Poole WPtel: [address] [place], [place] [phone] ACUTE ILLNESS 04/28/2021 Appointment: Cony Poole WPtel: [address] [place], [place] [phone] RESCHEDULED 03/25/2021 Visit Diagnosis Plan: Other fatigue Discussion: Will r echeck thyroid labs as previously scheduled, B12, and ferritin level per Dr. Brown- discussed could be causing fatigue. Will f/u after labs or sooner for worsening/concerns. ICD-9 : 780.79 ICD-10 : R53.83 03/19/2021 Appointment: Keeley Johnson WPtel: [facility]5 [phone] ACUTE ILLNESS 03/19/2021 Patient Education: Patient Medication Summary Completed 03/19/2021 Appointment: Cony Poole WPtel: [address] [place], [place] [phone] US INJECTION 02/27/2021 Visit Diagnosis Plan: Essential [...] I48.91 02/06/2021 Appointment: Cony Poole WPtel: [phone] [facility] AC[place] ILLNESS 02/06/2021 Care Plan: US EXAM OF HEAD AND NECK LOIN C : 85167-7 Pending 02/06/2021 Care Plan: DXA BONE DENSITY AXIAL LOINC : 42896-4 Pending 02/06/2021 Appointment: Keeley Johnson WPtel: [phone] [id number] US CANCELED 12/24/2020 Visit Diagnosis Plan: Skin lesion of right leg Discuss ion: Appears to be healing- is smaller, no s/s of infection. Will f/u if does not improve or worsens. ICD-9 : 709.9 ICD-10 : L98.9 12/20/2020 Appointment: Keeley Johnson WPtel: [phone] [id number] OFFICE SURGERY 12/20/2020 Patient Education: Patient Medication Summary Completed 12/20/2020 Visit Diagnosis Plan: Nontraumatic blister of skin Dis cussion: Small isolated lesion, no s/s of infection. Bandaid and neosporin applied. 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 F/U for worsening/concerns or if more lesions appear. ICD-9 : 709.8 ICD-10 : R23.8 12/11/2020 Appointment: Keeley Johnson WPtel: [phone] [phone] ACUTE ILLNESS 12/11/2020 Patient Education: Patient Medication [...] : R35.1 11/11/2020 Appointment: Cony Poole WPtel: [address] [place] [address] ACUTE ILLNESS 11/11/2020 Appointment: Cony Poole WPtel: [address] [place], [place] [phone] CANCELED 11/11/2020 Visit Diagnosis Plan: Inflamed seborrheic keratosis Di scussion: Cryotherapy as above ICD-9 : 702.11 ICD-10 : L82.0 09/05/2020 Appointment: Cony Poole WPtel: [address] [place], [place] [phone] ACUTE ILLNESS 09/05/2020 Visit Diagnosis Plan: Essential hypertension Discussio n: Stable ICD-9 : 401.9 ICD-10 : I10 07/29/2020 Visit Diagnosis Plan: Paroxysmal atrial fibrillation D iscussion: On eliquis ICD-9 : 427.31 ICD-10 : I48.0 07/29/2020 Visit Diagnosis Plan: Hypothyroidism Discussion: Lab d iscussed Will recheck lab in 2mos ICD-9 : 244.9 ICD-10 : E03.9 07/29/2020 Appointment: Cony Poole WPtel: [address] [place], [place] [phone] US FOLLOW UP 07/29/2020 Visit Diagnosis Plan: Dizziness and giddiness Discussi on: Continue increased dose of Cardizem ER 120mg po BID and monitor BP/pulse Has LINQ device in place Discussed Dee EKG Follow Up: 1 months ICD-9 : 780.4 ICD-10 : R42 06/24/2020 Appointment: Cony Poole WPtel: [phone] [id number] Hospital Follow Up 06/24/2020 Visit Diagnosis Plan: Weakness [...] : R53.1 06/21/2020 Appointment: Apoorva Rueda [address] [facility] 06/21/2020 Visit Diagnosis Plan: URI (upper [...] : J06.9 03/19/2020 Appointment: Apoorva Rueda 504 [facility] TELEMEDICINE 03/19/2020 Visit Diagnosis Plan: Atrial fibrillation [...] : I10 02/29/2020 Appointment: Cony Poole WPtel: [address] [place], [place] [phone] FOLLOW UP 02/29/2020 Care Plan: CT THORAX [...] ICD-10 : I87.2 02/22/2020 Appointment: Apoorva Rueda [address] [place] [address] ACUTE ILLNESS 02/22/2020 Appointment: Cony Poole WPtel: [address] [place], [place] [phone] 02/20/2020 Visit Diagnosis Plan: Urinary tract infection Discussi on: based on patient's age and length of illness, clinical s/s, will give 1 gm rocephin in office. urine sent for culture. push fluids and call office with new or worsening symptoms. ICD-9 : 599.0 ICD-10 : N39.0 02/13/2020 Appointment: Apoorva Rueda [address] [place] [address] ACUTE ILLNESS 02/13/2020 Visit Diagnosis Plan: Neck pain Discussion: Daily stre tches Moist heat Topical muscle rub Can use baclofen 1/2 tab during day and full tab at night ICD-9 : 723.1 ICD-10 : M54.2 2020 Appointment: Cony Poole WPtel: [address] [address] [place], [place] [address] ACUTE ILLNESS 2020 Visit Diagnosis Plan: Atrial [...] : M25.531 01/22/2020 Appointment: Cony Poole WPtel: [address] [phone] US FOLLOW UP 01/22/2020 Visit Diagnosis Plan: Paroxysmal atrial fibrillation D iscussion: Stable with new meds Follow Up: 1 months ICD-9 : 427.31 ICD-10 : I48.0 12/26/2019 Visit Diagnosis Plan: Essential hypertension Discussio n: Stable ICD-9 : 401.9 ICD-10 : I10 12/26/2019 Appointment: Cony Poole WPtel: [address] [phone] Hospital Follow Up 12/26/2019 Appointment: Cony Poole WPtel: [address] [phone] US CANCELED 12/25/2019 Visit Diagnosis Plan: Lung [...] ICD-10 : I50.9 11/27/2019 Appointment: Apoorva Rueda [address] [place], [place] [phone] US FOLLOW UP 11/27/2019 Visit Diagnosis Plan: Hypotension Discussion: Decrease amlodopine to once daily Monitor home BP/pulse and report readings in 2 weeks ICD-9 : 458.9 ICD-10 : I95.9 11/09/2019 Visit Diagnosis Plan: Urinary tract infection Discussi on: Cefdinir Culture urine ICD-9 : 599.0 ICD-10 : N39.0 11/09/2019 Appointment: Apoorva Rueda Damaris [address] [place], [place] [phone] [place] CANCELED 11/09/2019 Appointment: Cony Poole WPtel: [address] [place] [address] ACUTE ILLNESS 11/09/2019 Patient Education: cefdinir- [employer] C[employer]on [id number] https://www.[employer].com/[employer]/resources/getResource/61/[email or web address]-j0 Completed 11/09/2019 Visit Diagnosis Plan: Left leg swelling Discussion: St at LLE doppler now ICD-9 : 729.81 ICD-10 : M79.89 10/10/2019 Appointment: Cony Poole WPtel: [address] [place] [address] ACUTE ILLNESS 10/10/2019 Visit Diagnosis Plan: Muscle spasm Discussion: Can use tylenol 325mg po TID Topical muscle rub Baclofen 10mg 1/2-1 po q HS for spasm but hold temazepam while taking Notify if worsening or persists Stretches/Moist Heat ICD-9 : 728.85 ICD-10 : M62.838 08/25/2019 Appointment: Cony Poole WPtel: [address] [place], [place] [phone] TELEMEDICINE 08/25/2019 Patient Education: baclofen- [employer] C[employer]on [id number] https://www.[employer].com/[employer]/resources/getResource/61/ftmh3931-02rs-6bo5-4r Completed 08/25/2019 Visit Diagnosis Plan: Low back pain Discussion: Check L/S spine x-rays ICD-9 : 724.2 ICD-10 : M54.5 07/13/2019 Visit Diagnosis Plan: Sciatica of left side Discussion : Will likely start with PT pending x-ray results ICD-9 : 724.3 ICD-10 : M54.32 07/13/2019 Appointment: Cony Poole WPtel: [facility] ACUTE ILLNESS 07/13/2019 Care Plan: X-RAY EXAM L-S SPINE 2/3 VWS LOINC : 55408-4 Pending 07/13/2019 Visit Diagnosis Plan: Pneumonia due to infectious orga nism Discussion: Repeat rocephin 1gm IM today Start cefdinir tomorrow To ER this weekend if worsens ICD-9 : 486 ICD-10 : J18.9 05/18/2019 Appointment: Cony Poole WPtel: [address] [facility] FOLLOW UP 05/18/2019 Patient Education: cefdinir- [employer] Coupon [id number] https://www.[employer].com/[employer]/resources/getResource/61/4y08w29s-66h2-90w9-s4 Completed 05/18/2019 Patient Education: temazepam- [employer] Coupon [id number] https://www.[employer].com/[employer]/resources/getResource/61/tu3x31xv-7993-6ai9-9b Completed 05/18/2019 Patient Education: Synthroid- [employer] Coupon [id number] https://www.[employer].com/[employer]/resources/getResource/61/50891xlb-dk39-3u45-46 Completed 05/18/2019 Patient Education: Cytomel- [employer] Coupon [id number] https://www.[employer].com/[employer]/resources/getResource/61/vs31is73-682f-185w-x5 Completed 05/18/2019 Visit Diagnosis Plan: Pneumonia due to infectious orga nism Discussion: Rocephin 1gm IM now Recheck tomorrow ICD-9 : 486 ICD-10 : J18.9 05/17/2019 Appointment: Coyn Poole WPtel: [address] [place], [place] [phone] FOLLOW UP 05/17/2019 Appointment: Cony Poole WPtel: [address] [place] [phone] 05/10/19 1630---see note in chart related to throat culture (km) CANCELED 05/10/2019 Appointment: Cony Poole WPtel: [address] [place], [place] [phone] UA 05/08/2019 Appointment: Cony Poole WPtel: [address] [place] [phone] NURSE SERVICES 05/08/2019 Visit Diagnosis Plan: Stomatitis [...] : N39.0 04/24/2019 Appointment: Cony Poole WPtel: [address] [place], [place] [phone] FOLLOW UP 04/24/2019 Patient Education: nystatin- [employer] Coupon [id number] https://www.[employer]/resources/getResource/61/x737927p-u707-5x2p-d7 Completed 04/24/2019 Appointment: Cony Poole WPtel: [address] [place], [place] [phone] UA 04/21/2019 Visit Diagnosis Plan: Stomatitis and mucositis with ch bry of taste Discussion: Diflucan and nystatin susp Discussed oral biopsy ICD-9 : 528.00 ICD-10 : K12.1 04/10/2019 Appointment: Cony Poole WPtel: [address] [place], [place] [phone] ACUTE ILLNESS 04/10/2019 Patient Education: nystatin- [employer] Coupon [id number] https://www.[employer].com/[employer]/resources/getResource/61/4svoso45-45v6-8421-za Completed 04/10/2019 Appointment: Cony Poole WPtel: [address] [place], [place] [phone] US INJECTION 03/02/2019 Patient Education: INFLUENZA VACCINE [...] : R35.1 02/16/2019 Appointment: Cony Poole WPtel: [address] [place], [place] [phone] ACUTE ILLNESS 02/16/2019 Appointment: Cony Poole WPtel: [address] [place], [place] [phone] NO SHOW - FORGIVEN 02/15/2019 Appointment: Cony Poole WPtel: [address] [place], [place] [phone] BP CHECK 01/24/2019 Visit Diagnosis Plan: Acute upper respiratory infectio n, unspecified Discussion: cefdinir bid for 7 days. instructed to continue with allergy medications daily. call or rtc with new or worsening symptoms. ICD-9 : 465.9 ICD-10 : J06.9 12/20/2018 Appointment: Apoorva Rueda [address] [place] [address] ACUTE ILLNESS 12/20/2018 Visit Diagnosis Plan: Impacted cerumen, right ear Disc ussion: ear canal cleaned out with lavage. patient tolerated well and had immediate relief of hearing loss. no issues voiced. ICD-9 : 380.4 ICD-10 : H61.21 12/14/2018 Appointment: Apoorva Rueda [address] [place] [address] ACUTE ILLNESS 12/14/2018 Visit Diagnosis Plan: Essential [...] : I48.0 12/12/2018 Appointment: Cony Poole WPtel: [address] [place], [place] [phone] FOLLOW UP 12/12/2018 Visit Diagnosis Plan: Essential (primary) hypertension Discussion: Stable Patient sees cardiology next week--has been off sotalol since 09/15/18 and BP and pulse have been stable ICD-9 : 401.9 ICD-10 : I10 10/19/2018 Appointment: Cony Poole WPtel: [address] [place], [place] [phone] FOLLOW UP 10/19/2018 Appointment: Cony Poole WPtel: [address] [place] [phone] US BP CHECK 10/13/2018 Visit Diagnosis Plan: Allergic rhinitis due to pollen Discussion: Continue zyrtec ICD-9 : 477.9 ICD-10 : J30.1 10/05/2018 Visit Diagnosis Plan: Essential (primary) hypertension Discussion: Stable Recheck 2 weeks ICD-9 : 401.9 ICD-10 : I10 10/05/2018 Appointment: Cony Poole WPtel: [address] [place], [place] [address] FOLLOW UP 10/05/2018 Patient Education: Synthroid- [employer] Coupon [id number] https://www.[employer].com/[employer]/resources/getResource/61/czo07977-q403-1123-54 Completed 10/05/2018 Visit Diagnosis Plan: Allergic rhinitis due to pollen Discussion: Continue zyrtec Finish prednisone ICD-9 : 477.9 ICD-10 : J30.1 09/28/2018 Visit Diagnosis Plan: Hematuria, unspecified Discussio n: Recheck UA with microscopy in 1 week then fwup ICD-9 : 599.70 ICD-10 : R31.9 09/28/2018 Appointment: Cony Poole WPtel: [address] [place], [place] [address] FOLLOW UP 09/28/2018 Visit Diagnosis Plan: Allergic rhinitis due to pollen Discussion: Check CBC now May do low dose prednisone pending lab Recheck 2 days ICD-9 : 477.9 ICD-10 : J30.1 09/26/2018 Visit Diagnosis Plan: Slow transit constipation Discus jaelyn: Glycerin Suppository prn Miralax samples given today to use one daily ICD-9 : 564.01 ICD-10 : K59.01 09/26/2018 Appointment: Cony Poole WPtel: [address] [place], [place] [phone] FOLLOW UP 09/26/2018 Visit Diagnosis Plan: Other [...] ICD-10 : J20.9 09/23/2018 Appointment: Merry Diaz [facility] [employer] [id number] FOLLOW UP 09/23/2018 Patient Education: cefdinir- [employer] Coupon [id number] https://www.[employer].com/[employer]/resources/getResource/61/6vy1w0mx-[email or web address]-e7 Completed 09/23/2018 Visit Diagnosis Plan: Acute bronchitis, unspecified Di scussion: Rocephin today Go for CXR Flu negative Recheck tomorrow ICD-9 : 466.0 ICD-10 : J20.9 09/22/2018 Appointment: Cony Poole WPtel: [address] [phone] FOLLOW UP 09/22/2018 Visit Diagnosis Plan: [...] ICD-10 : R30.0 09/20/2018 Appointment: Merry Diaz [facility] [employer] [id number] ACUTE ILLNESS 09/20/2018 Visit Diagnosis Plan: Other fatigue Discussion: Hold s otalol Add B12 500mcg daily as B12 in low normal range Fwup 1 week ICD-9 : 780.79 ICD-10 : R53.83 09/15/2018 Visit Diagnosis Plan: Hypothyroidism, unspecified Disc ussion: Decrease Synthroid to 50mcg daily ICD-9 : 244.9 ICD-10 : E03.9 09/15/2018 Appointment: Cony Poole WPtel: [address] [place], [place] [phone] FOLLOW UP 09/15/2018 Appointment: Cony Poole WPtel: [address] [place], [place] [phone] [place] UA 09/14/2018 Visit Diagnosis Plan: Chronic fatigue, unspecified Dis cussion: I think her sotalol may be a big factor so will start with updated lab and if it is normal then will hold sotalol and fwup in 1 week ICD-9 : 780.79 ICD-10 : R53.82 09/08/2018 Appointment: Cony Poole WPtel: [address] [place], [place] [phone] ACUTE ILLNESS 09/08/2018 Visit Diagnosis Plan: Dysuria Discussion: UA- positive for leuks, hematuria, nitrates. Will start patient on Macrobid and culture urine. Will call patient with results of culture. RTC with worsening symptoms, including fever, increased pain, abdominal pain. Patient states understanding. ICD-9 : 788.1 ICD-10 : R30.0 09/05/2018 Appointment: Merry Diaz [address] [place] [address] ACUTE ILLNESS 09/05/2018 Care Plan: RML ASSAY THYROID STIM HORMONE Pending 05/26/2018 Care Plan: RML ASSAY OF FREE THYROXINE Pe nding 05/26/2018 Appointment: Cony Poole WPtel: [address] [place], [place] [phone] UA 04/20/2018 Appointment: Cony Poole WPtel: [address] [place], [place] [phone] BP CHECK 04/13/2018 Visit Diagnosis Plan: Impacted cerumen, right ear Disc ussion: cerumen removed with irrigation and lavage. patient tolerated well and had immediate relief. ICD-9 : 380.4 ICD-10 : H61.21 03/18/2018 Appointment: Apoorva Rueda 504 [facility] ACUTE ILLNESS 03/18/2018 Patient Education: Patient Medication [...] I10 03/03/2018 Appointment: Cony Poole WPtel: [phone] [facility] [id number] FOLLOW UP 03/03/2018 Patient Education: Patient Medication Summary Completed 03/03/2018 Visit Diagnosis Plan: Atopic dermatitis, unspecified D iscussion: instructed to apply triamcinolone bid for 2 weeks, until follow up. follow with your normal lotion and cover with compression hose. if worsening or no improvement, call clinic. ICD-9 : 691.8 ICD-10 : L20.9 02/16/2018 Appointment: Apoorva Rueda [address] [place], [place] [phone] ACUTE ILLNESS 02/16/2018 Patient Education: Patient Medication [...] ICD-10 : L89.611 01/26/2018 Appointment: Apoorva Rueda 504 [facility] ACUTE ILLNESS 01/26/2018 Patient Education: Patient Medication [...] : I10 11/30/2017 Appointment: Cony Poole WPtel: [address] [place], [place] [phone] FOLLOW UP 11/30/2017 Patient Education: Patient Medication Summary Completed 11/30/2017 Visit Diagnosis Plan: Other seborrheic keratosis Discu ssion: Monitor ICD-9 : 702.19 ICD-10 : L82.1 11/04/2017 Appointment: Cony Poole WPtel: [facility]2 [address] [place] Consult 11/04/2017 Patient Education: Patient Medication Summary Completed 11/04/2017 Visit Diagnosis Plan: Achilles tendinitis, right leg D iscussion: educated patient on RICE and the importance of performing all these activities. 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 to assist [...] ICD-10 : M76.61 10/20/2017 Appointment: Apoorva Rueda [address] [place] [address] ACUTE ILLNESS 10/20/2017 Patient Education: Patient Medication Summary Completed 10/20/2017 Visit Diagnosis Plan: Essential (primary) hypertension Discussion: Stable ICD-9 : 401.9 ICD-10 : I10 08/30/2017 Visit Diagnosis Plan: Weakness Discussion: Check Cervi gerri spine x-ray due to primarily being in upper arms ICD-9 : 780.79 ICD-10 : R53.1 08/30/2017 Appointment: Cony Poole WPtel: [address] [phone] FOLLOW UP 08/30/2017 Patient Education: Patient Medication Summary Completed 08/30/2017 Care Plan: X-RAY EXAM NECK SPINE 4/5VWS LOINC : 16412-4 Pending 08/30/2017 Patient Education: Patient Medication Summary Completed 08/13/2017 Care Plan: DXA BONE DENSITY AXIAL LOINC : 14747-1 Pending 08/13/2017 Patient Education: Patient Medication Summary Completed 07/01/2017 Care Plan: RML COMPREHEN METABOLIC PANEL LOINC : 37415-6 Pending 07/01/2017 Care Plan: RML ASSAY THYROID STIM HORMONE Pending 07/01/2017 Care Plan: RML ASSAY OF FREE THYROXINE Pe nding 07/01/2017 Care Plan: RML LIPID PANEL LOINC : 74322 -1 Pending 07/01/2017 Care Plan: CBC Pending [...] E03.9 05/25/2017 Appointment: Cony Poole WPtel: [phone] [phone] FOLLOW UP 05/25/2017 Patient Education: Patient Medication [...] : I10 03/22/2017 Appointment: Cony Poole WPtel: [address] [place], [place] [phone] FOLLOW UP 03/22/2017 Patient Education: Patient Medication Summary Completed 03/22/2017 Patient Education: Patient Medication Summary Completed 03/17/2017 Care Plan: RML ASSAY THYROID STIM HORMONE Pending 03/17/2017 Care Plan: RML ASSAY OF FREE THYROXINE Pe nding 03/17/2017 Care Plan: METABOLIC PANEL TOTAL CA LOIN C : 23710-1 Pending 03/17/2017 Appointment: Cony Poole WPtel: [address] [place], [place] [phone] US INJECTION 03/08/2017 Patient Education: Patient Medication Summary Completed 03/08/2017 Visit Diagnosis Plan: Hypothyroidism, unspecified Disc ussion: Increase synthroid to 75mcg daily and recheck 2mos Follow Up: 2 months ICD-9 : 244.9 ICD-10 : E03.9 01/18/2017 Visit Diagnosis Plan: Essential (primary) hypertension Discussion: Stable with current meds ICD-9 : 401.9 ICD-10 : I10 01/18/2017 Appointment: Cony Poole WPtel: [facility]6 [phone] [place] 01/14lm~sl FOLLOW UP 01/18/2017 Patient Education: Patient Medication Summary Completed 01/18/2017 Appointment: Cony Poole WPtel: [facility]4 [phone] BP CHECK 01/11/2017 Patient Education: Patient Medication Summary Completed 01/11/2017 Patient Education: Patient Medication Summary Completed 01/11/2017 Care Plan: RML ASSAY THYROID STIM HORMONE Pending 01/11/2017 Care Plan: RML ASSAY OF FREE THYROXINE Pe nding 01/11/2017 Appointment: Cony Poole WPtel: [address] [place], [place] [phone] BP CHECK 01/04/2017 Patient Education: Patient Medication Summary Completed 01/04/2017 Appointment: Cony Poole WPtel: [address] [place], [place] [address] BP CHECK 12/28/2016 Patient Education: Patient Medication Summary Completed 12/28/2016 Appointment: Cony Poole WPtel: [address] [place], [place] [address] BP CHECK 12/24/2016 Patient Education: Patient Medication Summary Completed 12/24/2016 Visit Diagnosis Plan: Hypotension, unspecified Discuss ion: Hold carter fuentes Decrease HCTZ to 12.5mg q AM BP check in 1 week ICD-9 : 458.9 ICD-10 : I95.9 12/16/2016 Visit Diagnosis Plan: Localized edema Discussion: Decr ease HCTZ to 12.5mg q AM ICD-9 : 782.3 ICD-10 : R60.0 12/16/2016 Appointment: Cony Poole WPtel: [address] [place], [place] [address] ACUTE ILLNESS 12/16/2016 Patient Education: Patient Medication [...] : E03.9 11/18/2016 Appointment: Cony Poole WPtel: [address] [place], [place] [phone] 11/17 lm ~sl 11/18 confirmed~sl FOLLOW UP [...] : E03.9 11/04/2016 Appointment: Cony Poole WPtel: [address] [place], [place] [phone] 11/03 confirmed `sl FOLLOW UP 11/04/2016 Patient Education: Patient Medication Summary Completed 11/04/2016 Visit Diagnosis Plan: Hypotension due to drugs Discuss ion: Hydrate Hold Losartan tonight then decrease to 50mg q HS BP check in 1 week ICD-9 : 458.8 ICD-10 : I95.2 10/27/2016 Appointment: Cony Poole WPtel: [address] [place] [phone] 10/26 Confirmed~sl FOLLOW UP 10/27/2016 Patient Education: Patient Medication Summary Completed 10/27/2016 Appointment: Cony Poole WPtel: [address] [place] [phone] [facility] 10/26/2016 Patient Education: Patient Medication Summary Completed 10/26/2016 Visit Diagnosis Plan: Cellulitis of left lower limb Di scussion: Finish Clindamycin Follow Up: 2 weeks ICD-9 : 682.6 ICD-10 : L03.116 10/13/2016 Appointment: Cony Poole WPtel: [address] [place] [phone] 10/12 lm-sp WORK IN 10/13/2016 Patient Education: Patient Medication Summary Completed 10/13/2016 Visit Diagnosis Plan: Cellulitis of left lower limb Di scussion: Change keflex to clindamycin Add prednisone Continue compression socks and elevate ICD-9 : 682.6 ICD-10 : L03.116 10/08/2016 Appointment: Cony Poole WPtel: [address] [phone] 10/07 lm~sl 10/08 confirmed`sl FOLLOW UP 10/08 [...] : L03.116 10/05/2016 Appointment: Cony Poole WPtel: [facility]8 [phone] 10/01 confirmed `sl FOLLOW UP 10/05/2016 Patient [...] METABOLIC PANEL TOTAL CA LOIN C : 35067-5 Pending 09/30/2016 Visit Diagnosis Plan: Other fatigue [...] I10 08/25/2016 Appointment: Cony Poole WPtel: [phone] [phone] 08/24 confirmed~sl FOLLOW UP 08/25/2016 Patient Education: Patient Medication Summary Completed 08/25/2016 Appointment: Cony Poole WPtel: [address] [phone] 07/30 rescheduled~sl RESCHEDULED 08/19/2016 Patient Education: Patient Medication Summary Completed 08/19/2016 Care Plan: RML COMPREHEN METABOLIC PANEL LOINC : 68456-6 Pending 08/19/2016 Care Plan: CBC Pending 08/19/2016 [...] I10 07/28/2016 Appointment: Cony Poole WPtel: [phone] [phone] 07/27 confirmed~sl ACUTE ILLNESS 07/28/2016 Patient Education: Patient Medication Summary Completed 07/28/2016 Patient Education: Patient Medication Summary Completed 07/06/2016 Care Plan: RML ASSAY THYROID STIM HORMONE Pending 07/06/2016 Care Plan: RML ASSAY OF FREE THYROXINE Pe nding 07/06/2016 Appointment: Cony Poole WPtel: [phone] [phone] BP CHECK 06/25/2016 Patient Education: Patient Medication Summary Completed 06/25/2016 Patient Education: Patient Medication Summary Completed 06/25/2016 Care Plan: CBC Pending 06/25/2016 Care Plan: URINALYSIS [place] W/[place] : [address]63[address]-2 Pending 06/25/2016 Visit Diagnosis Plan: Essential (primary) hypertension Discussion: Discussed with Dr Poole Increase HCTZ as above Check CMP in 1-2 weeks Patient to call Dr Noble for follow up with him, 1-2 weeks and management of her HTN ICD-9 : 401.9 ICD-10 : I10 06/23/2016 Appointment: Merle Hernandez 2305 [facility] ACUTE ILLNESS 06/23/2016 Patient Education: Patient Medication [...] notify our clinic for further orders Dr Pooel aware of plan and agrees 06/03/2016 Appointment: Merle Hernandez [facility] [place]LL[place] 06/03/2016 Patient Education: Patient Medication Summary Completed 06/03/2016 Visit Plan: Exam is fairly benign Flu ra n since her symptoms had such a sudden onset - results negative Likely viral URI Supportive care reviewed Monitor closely Follow up PRN 05/26/2016 Appointment: Merle Hernandez Chad5 [facility] ACUTE ILLNESS 05/26/2016 Patient Education: Patient Medication Summary Completed 05/26/2016 Visit Plan: Continue current meds and mo nitor BP Continue temazepam at current dose--discussed risks but patient feels much better since getting good rest Check CBC, CMP, TSH, Free T4 05/20/2016 Appointment: Cony Poole WPtel: [address] [place], [place] [phone] 05/19 confirmed~sl FOLLOW UP 05/20/2016 Patient Education: Patient Medication Summary Completed 05/20/2016 Appointment: Cony Poole WPtel: [address] [place], [place] [phone] CANCELED 04/07/2016 Visit Plan: Check right ankle x-ray Disc ussed may need veins in right ankle worked on if swelling/pain persist 03/19/2016 Appointment: Cony Poole WPtel: [address] [place], [place] [phone] ACUTE ILLNESS 03/19/2016 Patient Education: Patient Medication Summary Completed 03/19/2016 Visit Plan: Increase HCTZ to 12.5mg po e very day Recheck Chem [address] Noble next week to discuss antiarrhythmic meds Prevnar 13 today 01/13/2016 Appointment: Cony Poole WPtel: [address] [place], [place] [phone] 01/08 confirmed-sp FOLLOW UP 01/13/2016 Patient Education: Patient Medication Summary Completed 01/13/2016 Visit Plan: Continue current meds and mo nitor BP Check Chem 7 12/12/2015 Appointment: Cony Poole WPtel: [address] [place], [place] [phone] /onfirmed sl FOLLOW UP 12/12/2015 Patient Education: Patient Medication Summary Completed 12/12/2015 Appointment: Cony Poole WPtel: [address] [place], [place] [phone] RESCHEDULED 12/10/2015 Visit Plan: Add Restoril 15mg q HS--stuart ent used in hospital with no complications Add back low dose HCTZ at 12.5mg every other day Monitor BP Can hold on nebulizer treatments Check Chem 7 now and recheck 1week 12/05/2015 Appointment: Cony Poole WPtel: [phone] [facility] 12/02 confirmed~sl ER Follow UP 12/05/2015 Patient Education: Patient Medication Summary Completed 12/05/2015 Appointment: Cony Poole WPtel: [phone] [phone] WORK IN 11/28/2015 Visit Plan: Due to patient's symptoms an d high blood pressure I consulted . Outpatient orders written for 1L IV fluids with 1G Rocephin and Zofran for nausea. Patient sent to hospital and followup in am. 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 Keep BP log and follow up PRN 10/21/2015 Appointment: Merle Hernandez [address] [place], [place] [id number] ACUTE ILLNESS 10/21/2015 Patient Education: Patient Medication Summary Completed 10/21/2015 Visit Plan: Stop amlodopine Increase met oprolol to to 50mg q HS and 25mg in AM Switch cozaar to 100mg daily as the insurance does not want to pay for 50mg BID dosing Low Na diet and elevate legs See Cardiology 10/17/2015 Appointment: Cony Poole WPtel: [address] [place], [place] [phone] onfirm~sl FOLLOW UP 10/17/2015 Patient Education: Patient Medication Summary Completed 10/17/2015 Visit Plan: Pt to bring in home BP/HR lo g for review Orders given for CBC, CMP, TSH, MG and 48 holter for further evaluation 10/07/2015 Appointment: Merle Hernandez [address] [place] [address] ACUTE ILLNESS 10/07/2015 Patient Education: Patient Medication Summary Completed 10/07/2015 Visit Plan: Cold vs Allergies Continue z yrtec and nasacort Add steroid pack as above Add plain mucinex, nasal rinses, vicks, humidifier, etc Call if not improving or if worsening - will likely add zpak 09/03/2015 Appointment: Merle Hernandez [address] [place] [address] ACUTE ILLNESS 09/03/2015 Patient Education: Patient Medication Summary Completed 09/03/2015 Visit Plan: BP values reviewed Change me toprolol to 12.5mg po BID BP values in 1month 08/01/2015 Appointment: Cony Poole WPtel: [phone] [phone] 07/31 confirmed-SP FOLLOW UP 08/01/2015 Patient Education: Patient Medication Summary Completed 08/01/2015 Visit Plan: Had lab in the fall--shanelle jennifer ain copy and plan on repeat lab 6mos from last lab then fwup after that Continue current meds Mammogram up-to-date 06/27/2015 Appointment: Cony Poole WPtel: [phone] [phone] 06/26/15 appt confirmed cn NEW PATIENT 06/27 Patient Education: Patient Medication Summary Completed 06/27/2015 Referral: Donald Noble WPtel: [facility] [address] [id number] US Referral Initiated Instructions Comment Date . 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
--- OUTSIDE RECORDS SUMMARY | 2022-11-09 15:27 | XMS REPORT | CCD ---
Author Author Tanna Poole D.O. Organization [facility] Address [address] [place] [phone] Phone Care Team Providers Care Civil Manager Name Role Phone Cony Poole D.O., PP Unavailable CCM Unavailable Summary Purpose Interface Exchange Insurance Providers Payer name Policy type / Coverage type Covered alliance party ID Effective Begin Date Effective End Date WPS MEDICARE PART B [place] Medicare Part B [id number] Unknown [facility] Medicare Part B [id number] Un known Family history Sister Diagnosis Age [...] Unknown Retired 06/27/[address]: 6894833 Former smoker quit 1986 06/27/[address]: 184548600 Never drinks alcohol 2015 Has the patient [...] Start Date Stop Date Status Fill Instructions hydralazine 10 mg tablet RxNorm: 524037 Take 1 Tablet(s) Oral t wo times a day 10/15/2022 04/12/2023 Active sertraline 25 mg tablet RxNorm: 262515 1/2 Tablet(s) Oral QPM r eplaces effexor 10/05/2022 01/02/2023 Active Synthroid 75 mcg tablet RxNorm: 233183 TAKE 1 TABLET BY MOUTH WEDNESDAY, WEDNESDAY, Wednesday10/05/2022 03/21/2023 Active sertraline 25 mg tablet RxNorm: 627336 1/2 Tablet(s) Oral QPM r eplaces effexor 10/05/2022 10/05/2022 Inactive Effexor XR 37.5 mg capsule,extended release RxNorm: 469520 Take 1 Capsule(s) Oral QPM for mood 10/01/2022 10/04/2022 Inactive losartan 50 mg tablet RxNorm: 544352 Take 1 Tablet(s) Oral two times a day 09/16/2022 03/14/2023 Active Synthroid 75 mcg tablet RxNorm: 264671 Take 1 Tablet(s) Oral MWF 11/25/2022 Active Synthroid 88 mcg tablet RxNorm: 837119 Take 1 Tablet(s) Oral QD Tu, Th, Sa, [place] 08/28/2022 11/25/2022 Active Synthroid 88 mcg tablet RxNorm: 799761 Take 1 Tablet(s) Oral QD Tu, Th, Sa, [place] 08/25/2022 08/25/2022 Inactive Synthroid 75 mcg tablet RxNorm: 232715 Take 1 Tablet(s) Oral MWF 08/25/2022 Inactive Synthroid 75 mcg tablet RxNorm: 577725 Take 1 Tablet(s) Oral MWF 08/24/2022 Inactive hydralazine 10 mg tablet RxNorm: 954476 Take 1 Tablet(s) Oral t wo times a day 07/28/2022 07/28/2022 Inactive metoprolol succinate ER 100 mg tablet,extended release 24 hr RxNorm: 061064 Take 1 Tablet(s) Oral QPM 07/28/2022 07/28/2022 Inactive Synthroid 88 mcg tablet RxNorm: 462716 Take 1 Tablet(s) Oral QD Wednesday-Wednesday07/28/2022 08/24/2022 Inactive Synthroid 75 mcg tablet RxNorm: 809926 Take 1 Tablet(s) Oral QA M Sat/Sun 07/28/2022 08/24/2022 Inactive losartan 50 mg tablet RxNorm: 234840 1 Tablet(s) Oral two times a day 07/28/2022 07/28/2022 Inactive Zithromax Z-Topher 250 mg tablet RxNorm: 271882 Take 2 Tab let(s) Oral QD x1 dose then 1 daily 07/14/2022 07/18/2022 Inactive losartan 50 mg tablet RxNorm: 988371 TAKE ONE TABLET BY MOUTH DAILY 07/14/2022 07/27/2022 Inactive Synthroid 88 mcg tablet RxNorm: 896706 Take 1 Tablet(s) Oral QD Wednesday-Wednesday06/23/2022 07/27/2022 Inactive Synthroid 75 mcg tablet RxNorm: 477889 Take 1 Tablet(s) Oral QA M Sat/Sun 06/23/2022 07/27/2022 Inactive Xarelto 15 mg tablet RxNorm: 0920121 Take 1 Tablet(s) Oral QD 06/0906/09/2022 Inactive atorvastatin 20 mg tablet RxNorm: 780979 Take 1 Tablet(s) Oral QD 0 06/09/2022 06/09/2022 Inactive metoprolol succinate ER 100 mg tablet,extended release 24 hr RxNorm: 591324 Take 1 Tablet(s) Oral QD 06/09/2022 06/09/2022 Inactive budesonide 0.5 mg/2 mL suspension for nebulization RxNorm: 3 36418 USE 1 VIAL IN NEBULIZER TWICE DAILY (RINSE MOUTH AFTER EACH TREATMENT) 05/29/2022 No Stop Date Active Perforomist 20 mcg/2 mL solution for nebulization RxNorm: 12 40100 USE 1 VIAL IN NEBULIZER TWICE DAILY (MORNING AND EVENING) 05/29/2022 No Stop Date Acti ve Perforomist 20 mcg/2 mL solution for nebulization RxNorm: 12 77581 USE 1 VIAL IN NEBULIZER TWICE DAILY - morning and evening 05/26/2022 05/26/2022 Inac tive Perforomist 20 mcg/2 mL solution for nebulization RxNorm: 12 48277 USE 1 VIAL IN NEBULIZER TWICE DAILY - morning and evening 05/26/2022 05/26/2022 Inac tive budesonide 0.5 mg/2 mL suspension for nebulization RxNorm: 3 74933 USE 1 VIAL IN NEBULIZER TWICE DAILY - rinse mouth after treatment 05/26/2022 05/26/20 Inactive albuterol sulfate 2.5 mg/3 mL (0.083 %) solution for n ebulization RxNorm: 775783 USE 1 VIAL IN NEBULIZER DAILY - for rescue 05/26/2022 05/26/2022 Inactive budesonide 0.5 mg/2 mL suspension for nebulization RxNorm: 3 72589 USE 1 VIAL IN NEBULIZER TWICE DAILY - rinse mouth after treatment 05/26/2022 05/26/20 22 Inactive budesonide 0.5 mg/2 mL suspension for nebulization RxNorm: 3 00748 USE 1 VIAL IN NEBULIZER TWICE DAILY - rinse mouth after treatment 05/26/2022 05/26/20 Inactive losartan 50 mg tablet RxNorm: 441526 Take 1 Tablet(s) Oral two times a day 05/25/2022 05/25/2022 Inactive Synthroid 88 mcg tablet RxNorm: 987669 Take 1 Tablet(s) Oral QD 03/202206/22/2022 Inactive Astepro Allergy 205.5 mcg (0.15 %) nasal spray RxNorm: 57685 84 Take 1 [place] Nasal two times a day in each nostril 03/19/2022 No Stop Date Active Perforomist 20 mcg/2 mL solution for nebulization RxNorm: 12 45273 USE 1 VIAL IN NEBULIZER TWICE DAILY - morning and evening 02/17/2022 02/17/2022 Inac tive Xarelto 15 mg tablet RxNorm: 3780660 Take 1 Tablet(s) Oral QD 02/1706/09/2022 Inactive budesonide 0.5 mg/2 mL suspension for nebulization RxNorm: 3 58460 USE 1 VIAL IN NEBULIZER TWICE DAILY - rinse mouth after treatment 02/05/2022 02/06/20 22 Inactive Perforomist 20 mcg/2 mL solution for nebulization RxNorm: 12 45310 USE 1 VIAL IN NEBULIZER TWICE DAILY - morning and evening 02/05/2022 02/05/2022 Inac tive albuterol sulfate 2.5 mg/3 mL (0.083 %) solution for n ebulization RxNorm: 267427 USE 1 VIAL IN NEBULIZER DAILY - for rescue 02/05/2022 02/05/2022 Inactive ipratropium bromide 0.02 % solution for inhalation RxNorm: 8 66570 USE 1 VIAL IN NEBULIZER EVERY 4 HOURS - and as needed 02/05/2022 02/16/2022 Inactive albuterol sulfate HFA 90 mcg/actuation aerosol inhaler RxNor m: 8826372 Take 2 Puff(s) Inhalation Q4H as needed as needed 01/27/2022 No Stop Date Activ e Synthroid 88 mcg tablet RxNorm: 415299 Take 1 Tablet(s) Oral QD 01/26/2022 Inactive BRAND NAME ONLY losartan 50 mg tablet RxNorm: 806606 TAKE ONE TABLET BY MOUTH DAILY , REPLACES 25MG DOSE 01/15/2022 07/13/2022 Inactive Symbicort 160 mcg-4.5 mcg/actuation HFA aerosol inhaler RxNo rm: 2094801 2 Puff(s) Inhalation two times a day 10/30/2021 11/28/2021 Inactive Symbicort 160 mcg-4.5 mcg/actuation HFA aerosol inhaler RxNo rm: 8720548 2 Puff(s) Inhalation two times a day 10/30/2021 10/30/2021 Inactive Synthroid 88 mcg tablet RxNorm: 512058 Take 1 Tablet(s) Oral QD 10/29/2021 Inactive Breo Ellipta 200 mcg-25 mcg/dose powder for inhalation RxNor m: 7713378 Inhale 1 Puff(s) Inhalation QD 10/29/2021 10/29/2021 Inactive Breo Ellipta 200 mcg-25 mcg/dose powder for inhalation RxNor m: 2370119 Inhale 1 Puff(s) Inhalation QD 10/29/2021 10/29/2021 Inactive replaces a dvair Synthroid 88 mcg tablet RxNorm: 587020 Take 1 Tablet(s) Oral QD 10/28/2021 Inactive BRAND NAME ONLY fluticasone 113 mcg-salmeterol 14 mcg/actuation breath activated powdr RxNorm: 6022652 Inhale 1 Puff(s) Inhalation QAM 10/28/2021 10/28/2021 Inactive Flonase Allergy Relief 50 mcg/actuation nasal spray,suspensi on RxNorm: 1077893 2 [place] Nasal every night at bedtime 10/28/2021 10/12/2022 Inactive losartan 50 mg tablet RxNorm: 822467 1 Tablet(s) Oral QD replac es 25mg dose 10/20/2021 10/20/2021 Inactive metoprolol succinate ER 100 mg tablet,extended release 24 hr RxNorm: 842069 1 Tablet(s) Oral QD 09/23/2021 06/09/2022 Inactive potassium chloride ER 8 mEq capsule,extended release RxNorm: 248114 Take 1 Capsule(s) Oral QOD with lasix 09/15/2021 03/18/2022 Inactive Synthroid 88 mcg tablet RxNorm: 929669 Take 1 Tablet(s) Oral QD 12/202110/27/2021 Inactive BRAND NAME ONLY potassium chloride ER 8 mEq capsule,extended release RxNorm: 388633 1 Capsule(s) Oral QOD with lasix 09/11/2021 09/11/2021 Inactive metoprolol succinate ER 100 mg tablet,extended release 24 hr RxNorm: 373932 Take 1/2 Tablet(s) Oral QD 08/21/2021 09/22/2021 Inactive Synthroid 88 mcg tablet RxNorm: 195698 Take 1 Tablet(s) Oral QD 07/23/2021 Inactive BRAND NAME ONLY clindamycin HCl 300 mg capsule RxNorm: 477160 Take 1 Ca psule(s) Oral three times a day 07/03/2021 07/09/2021 Inactive clindamycin HCl 300 mg capsule RxNorm: 523519 Take 1 Ca psule(s) Oral three times a day 07/03/2021 07/03/2021 Inactive Synthroid 88 mcg tablet RxNorm: 259208 Take 1 Tablet(s) Oral QD 07/03/2021 Inactive BRAND NAME ONLY0 potassium chloride ER 8 mEq capsule,extended release RxNorm: 135780 1 Capsule(s) Oral QOD with lasix 06/26/2021 09/11/2021 Inactive potassium chloride ER 8 mEq tablet,extended release RxNorm: 123187 Take 2 Tablet(s) Oral two times a day 06/23/2021 06/25/2021 Inactive atorvastatin 20 mg tablet RxNorm: 447108 Take 1 Tablet(s) Oral QD 0 06/19/2021 06/09/2022 Inactive diltiazem CD 300 mg capsule,extended release 24 hr RxNorm: 8 23598 Take 1 Capsule(s) Oral QAM 06/19/2021 08/20/2021 Inactive potassium chloride ER 8 mEq tablet,extended release RxNorm: 551924 Take 2 Tablet(s) Oral two times a day 06/19/2021 06/23/2021 Inactive fluticasone 113 mcg-salmeterol 14 mcg/actuation breath activated powdr RxNorm: 3264765 Inhale 1 Puff(s) Inhalation QAM 06/19/2021 10/27/2021 Inactive furosemide 40 mg tablet RxNorm: 021340 Take 1 Tablet(s) Oral QAM 03/18/2022 Inactive alprazolam 0.25 mg tablet RxNorm: 723657 Take 1 Tablet(s) Oral Q8H as needed 06/19/2021 07/29/2021 Inactive gabapentin 100 mg capsule RxNorm: 014312 Take 2 Capsule (s) Oral every night at bedtime 06/19/2021 07/29/2021 Inactive losartan 25 mg tablet RxNorm: 345690 Take 1 Tablet(s) Oral QD 06/1910/20/2021 Inactive tramadol 50 mg tablet RxNorm: 691381 Take 1 Tablet(s) O ral three times a day as needed 06/19/2021 10/27/2021 Inactive Tylenol Arthritis Pain 650 mg tablet,extended release RxNorm : 0278123 Take 1 Tablet(s) Oral four times a day 05/05/2021 03/18/2022 Inactive Synthroid 88 mcg tablet RxNorm: 614486 Take 1 Tablet(s) Oral QD 04/30/2021 Inactive BRAND NAME ONLY0 Synthroid 88 mcg tablet RxNorm: 283543 1 Tablet(s) Oral QD 04/29/20 21 04/29/2021 Inactive Synthroid 88 mcg tablet RxNorm: 209407 1 Tablet(s) Oral QD 04/29/20 21 04/29/2021 Inactive magnesium oxide 400 mg (241.3 mg magnesium) tablet RxNorm: 1 96943 1 Tablet(s) Oral every night at bedtime 04/03/2021 No Stop Date Active Vitamin B12 1000mcg Tablet RxNorm: Take 1/2 Tablet(s) Oral QD 04/03/2021 No Stop Date Active aspirin 81 mg capsule RxNorm: 172535 1 Capsule(s) Oral QD No Stop Date Active doxazosin 1 mg tablet RxNorm: 708548 1 Tablet(s) Oral QPM 03/19/2021 04/02/2021 Inactive Cartia XT 240 mg capsule,extended release RxNorm: 975593 Take 1 Capsule(s) Oral QD 02/06/2021 06/18/2021 Inactive fluticasone propionate 50 mcg/actuation nasal spray,suspensi on RxNorm: 0684068 SHAKE LIQUID AND USE 2 SPRAYS IN EACH NOSTRIL EVERY NIGHT AT BEDTIME 12/19/2020 01/17/2021 Inactive diltiazem 120 mg tablet RxNorm: 067080 1 Tablet(s) Oral QD 12/12/1902/05/2021 Inactive Flonase Allergy Relief 50 mcg/actuation nasal spray,suspensi on RxNorm: 7854150 2 [place] Nasal every night at bedtime 11/21/2020 11/21/2020 Inactive diltiazem 120 mg tablet RxNorm: 016040 Take 1 Tablet(s) Oral tw o times a day 11/11/2020 12/10/2020 Inactive oxybutynin chloride 5 mg tablet RxNorm: 732287 Take 1 T ablet(s) Oral every night at bedtime for overactive bladder 11/11/2020 11/11/2020 Inactive oxybutynin chloride 5 mg tablet RxNorm: 200028 Take 1 T ablet(s) Oral every night at bedtime for overactive bladder 11/11/2020 11/11/2020 Inactive oxybutynin chloride 5 mg tablet RxNorm: 703067 TAKE 1 T ABLET BY MOUTH EVERY NIGHT AT BEDTIME FOR OVERACTIVE BLADDER 11/11/2020 02/05/2021 Inactive Patient requests 90 days supply MagOx 400 mg (241.3 mg magnesium) tablet RxNorm: 251869 TAKE 1 TABLET BY MOUTH EVERY OTHER DAY 10/28/2020 02/05/2021 Inactive Synthroid 75 mcg tablet RxNorm: 820014 TAKE 1 TABLET BY MOUTH EVERY DAY DIRECTED 09/06/2020 04/29/2021 Inactive diltiazem CD 120 mg capsule,extended release 24 hr RxNorm: 8 19331 1 Tablet(s) Oral QD 09/05/2020 11/10/2020 Inactive Synthroid 75 mcg tablet RxNorm: 314575 TAKE 1 TABLET BY MOUTH EVERY DAY DIRECTED 09/03/2020 09/05/2020 Inactive Synthroid 75 mcg tablet RxNorm: 736008 TAKE 1 TABLET BY MOUTH EVERY DAY DIRECTED 09/03/2020 09/02/2020 Inactive MagOx 400 mg (241.3 mg magnesium) tablet RxNorm: 993817 1 Table t(s) Oral QOD 07/30/2020 11/10/2020 Inactive MagOx 400 mg (241.3 mg magnesium) tablet RxNorm: 237090 1 Table t(s) Oral QOD 07/29/2020 07/29/2020 Inactive diltiazem CD 120 mg capsule,extended release 24 hr RxNorm: 8 13296 1 Tablet(s) Oral two times a day 07/29/2020 09/04/2020 Inactive diltiazem CD 120 mg capsule,extended release 24 hr RxNorm: 8 37798 1 Tablet(s) Oral two times a day 07/04/2020 07/03/2020 Inactive diltiazem CD 120 mg capsule,extended release 24 hr RxNorm: 8 82890 1 Tablet(s) Oral two times a day 07/04/2020 07/28/2020 Inactive Eliquis 5 mg tablet RxNorm: 3665189 TAKE 1 TABLET BY MOUTH TWICE DAILY 06/10/2020 02/16/2022 Inactive diltiazem CD 120 mg capsule,extended release 24 hr RxNorm: 8 61012 TAKE 1 CAPSULE BY MOUTH DAILY 06/10/2020 06/09/2020 Inactive Eliquis 5 mg tablet RxNorm: 5918255 TAKE 1 TABLET BY MOUTH TWICE DAILY 06/10/2020 06/09/2020 Inactive diltiazem CD 120 mg capsule,extended release 24 hr RxNorm: 8 77349 TAKE 1 CAPSULE BY MOUTH DAILY 06/10/2020 07/03/2020 Inactive Synthroid 75 mcg tablet RxNorm: 556580 TAKE 1 TABLET BY MOUTH EVERY DAY DIRECTED 06/10/2020 09/02/2020 Inactive Flonase Allergy Relief 50 mcg/actuation nasal spray,suspensi on RxNorm: 7078974 2 [place] Nasal every night at bedtime 04/26/2020 04/26/2020 Inactive Vitamin D3 25 mcg (1,000 unit) capsule RxNorm: 835304 3 Capsule (s) Oral QD 04/22/2020 No Stop Date Active MagOx 400 mg (241.3 mg magnesium) tablet RxNorm: 023712 1 Table t(s) Oral QOD 04/22/2020 04/21/2020 Inactive MagOx 400 mg (241.3 mg magnesium) tablet RxNorm: 567457 1 Table t(s) Oral QOD 04/22/2020 07/21/2020 Inactive prednisone 10 mg tablet RxNorm: 537599 1 Tablet(s) Oral two norma es a day 03/22/2020 03/27/2020 Inactive Eliquis 5 mg tablet RxNorm: 8192335 TAKE 1 TABLET BY MOUTH TWICE DAILY 03/15/2020 06/09/2020 Inactive Synthroid 75 mcg tablet RxNorm: 608302 TAKE 1 TABLET BY MOUTH EVERY DAY DIRECTED 03/15/2020 06/09/2020 Inactive furosemide 20 mg tablet RxNorm: 448605 1 Tablet(s) Oral QAM as needed 03/14/2020 06/20/2020 Inactive diltiazem CD 120 mg capsule,extended release 24 hr RxNorm: 8 03378 TAKE 1 CAPSULE BY MOUTH DAILY 03/14/2020 06/09/2020 Inactive amiodarone 200 mg tablet RxNorm: 502797 TAKE 1 TABLET BY MOUTH SIMON Y 03/14/2020 06/23/2020 Inactive potassium chloride ER 20 mEq tablet,extended release RxNorm: 520202 1 Tablet(s) Oral two times a day as needed 02/29/2020 06/20/2020 Inactive furosemide 20 mg tablet RxNorm: 851002 1 Tablet(s) Oral QAM as needed 02/29/2020 03/13/2020 Inactive Macrobid 100 mg capsule RxNorm: 492399 1 Capsule(s) Oral two ti mes a day 02/15/2020 02/18/2020 Inactive Macrobid 100 mg capsule RxNorm: 067540 1 Capsule(s) Oral two ti mes a day 02/15/2020 02/14/2020 Inactive magnesium oxide 400 mg (241.3 mg magnesium) tablet RxNorm: 1 29451 TAKE 1/2 TABLET BY MOUTH EVERY DAY 01/30/2020 02/21/2020 Inactive Flonase Allergy Relief 50 mcg/actuation nasal spray,suspensi on RxNorm: 5442972 2 [place] Nasal every night at bedtime 01/22/2020 04/25/2020 Inactive furosemide 20 mg tablet RxNorm: 737880 1 Tablet(s) Oral QOD 020 02/12/2020 Inactive potassium chloride ER 20 mEq tablet,extended release RxNorm: 247290 1 Tablet(s) Oral two times a day 01/04/2020 02/12/2020 Inactive potassium chloride ER 20 mEq tablet,extended release RxNorm: 454327 TAKE 1 TABLET BY MOUTH TWICE DAILY 01/03/2020 01/03/2020 Inactive diltiazem CD 120 mg capsule,extended release 24 hr RxNorm: 8 23740 1 Capsule(s) Oral QD 12/26/2019 03/13/2020 Inactive Colace 100 mg capsule RxNorm: 2587398 2 Capsule(s) Oral QD 12/26/1903/18/2022 Inactive Flonase Allergy Relief 50 mcg/actuation nasal spray,suspensi on RxNorm: 2013100 2 [place] NASAL QHS 12/26/2019 12/28/2019 Inactive amiodarone 200 mg tablet RxNorm: 963714 1 Tablet(s) Oral QD 020 01/21/2020 Inactive Eliquis 5 mg tablet RxNorm: 5844571 1 Tablet(s) Oral two times a da y 12/26/2019 03/14/2020 Inactive potassium chloride ER 20 mEq tablet,extended release RxNorm: 558949 2 Tablet(s) Oral QD with furosemide 12/20/2019 01/21/2020 Inactive furosemide 20 mg tablet RxNorm: 277698 1 Tablet(s) Oral QAM 020 01/18/2020 Inactive Synthroid 75 mcg tablet RxNorm: 456580 1 Tablet(s) Oral QD 12/18/19 20 02/16/2020 Inactive potassium chloride ER 20 mEq tablet,extended release RxNorm: 737532 2 Tablet(s) Oral QOD with furosemide 11/29/2019 12/19/2019 Inactive furosemide 40 mg tablet RxNorm: 259606 1 Tablet(s) Oral QOD 020 12/19/2019 Inactive amlodipine 5 mg tablet RxNorm: 086023 1 Tablet(s) Oral every ni ght at bedtime 11/27/2019 12/18/2019 Inactive Lasix 40 mg tablet RxNorm: 842535 1 Tablet(s) Oral QAM 11/23/2019 Inactive potassium [...] 11/22/2019 Inactive cefdinir 300 mg capsule RxNorm: 259350 1 Capsule(s) Oral two ti mes a day 11/09/2019 11/16/2019 Inactive temazepam 15 mg capsule RxNorm: 176684 TAKE 1 CAPSULE B Y MOUTH EVERY NIGHT AT BEDTIME 11/06/2019 12/18/2019 Inactive magnesium oxide 400 mg (241.3 mg magnesium) tablet RxNorm: 1 01362 TAKE 1/2 TABLET BY MOUTH EVERY DAY 11/03/2019 2020 Inactive Synthroid 75 mcg tablet RxNorm: 441303 TAKE 1 TABLET BY MOUTH E 10/16/2019 12/17/2019 Inactive potassium chloride ER 20 mEq tablet,extended release RxNorm: 814767 TAKE 1 TABLET BY MOUTH TWICE DAILY 10/02/2019 11/28/2019 Inactive baclofen 10 mg tablet RxNorm: 589166 1/2-1 Tablet(s) Or al QPM as needed for muscle spasm 09/21/2019 01/21/2020 Inactive hydrochlorothiazide 25 mg tablet RxNorm: 099449 TAKE 1 TABLET BY MOUTH EVERY MORNING 09/21/2019 11/26/2019 Inactive amlodipine 5 mg tablet RxNorm: 540005 TAKE 1 TABLET BY MOUTH TW ICE DAILY 09/06/2019 11/27/2019 Inactive magnesium oxide 400 mg (241.3 mg magnesium) tablet RxNorm: 1 34448 TAKE 1/2 TABLET BY MOUTH EVERY DAY 09/06/2019 11/02/2019 Inactive temazepam 15 mg capsule RxNorm: 591225 TAKE 1 CAPSULE B Y MOUTH EVERY DAY AT BEDTIME 09/04/2019 11/05/2019 Inactive baclofen 10 mg tablet RxNorm: 424031 1/2-1 Tablet(s) Or al QPM as needed for muscle spasm 08/25/2019 09/20/2019 Inactive Synthroid 75 mcg tablet RxNorm: 199845 TAKE 1 TABLET BY MOUTH E 08/17/2019 10/15/2019 Inactive Cytomel 5 mcg tablet RxNorm: 855015 TAKE 1 TABLET BY MOUTH EVERY DA Y 08/13/2019 01/21/2020 Inactive potassium chloride ER 20 mEq tablet,extended release RxNorm: 857270 TAKE 1 TABLET BY MOUTH TWICE DAILY 07/06/2019 10/01/2019 Inactive Synthroid 75 mcg tablet RxNorm: 755487 1 Tablet(s) Oral QD Recheck labs in 2 months 06/21/2019 08/16/2019 Inactive Recheck labs in 2 months Synthroid 75 mcg tablet RxNorm: 264289 1 Tablet(s) Oral QD Recheck labs in 2 months 06/21/2019 06/20/2019 Inactive Recheck labs in 2 months amlodipine 5 mg tablet RxNorm: 806265 TAKE 1 TABLET BY MOUTH TW ICE DAILY 06/11/2019 09/05/2019 Inactive Diflucan 100 mg tablet RxNorm: 014224 1 Tablet(s) Oral QD 05/29/2019 06/04/2019 Inactive Zithromax Z-Topher 250 mg tablet RxNorm: 545637 Tablet(s) Oral as directed 05/29/2019 05/28/2019 Inactive Zithromax Z-Topher 250 mg tablet RxNorm: 204203 Tablet(s) Oral as directed 05/29/2019 05/29/2019 Inactive Diflucan 100 mg tablet RxNorm: 840556 1 Tablet(s) Oral QD 05/29/2019 05/28/2019 Inactive cefdinir 300 mg capsule RxNorm: 527393 1 Capsule(s) Oral two ti mes a day 05/19/2019 05/22/2019 Inactive Synthroid 50 mcg tablet RxNorm: 376692 1 TABLET(S) PO QD 05/18/2019 0 06/20/2019 Inactive lab draw in 2 months to recheck thyroid temazepam 15 mg capsule RxNorm: 717055 TAKE 1 CAPSULE B Y MOUTH EVERY DAY AT BEDTIME 05/18/2019 07/16/2019 Inactive Cytomel 5 mcg tablet RxNorm: 416534 1 Tablet(s) Oral QD 05/18/2019 Inactive cefdinir 300 mg capsule RxNorm: 536141 1 Capsule(s) Oral two ti mes a day 05/18/2019 05/18/2019 Inactive magnesium oxide 400 mg (241.3 mg magnesium) tablet RxNorm: 1 56839 1/2 TABLET(S) PO QD 05/10/2019 05/10/2019 Inactive temazepam 15 mg capsule RxNorm: 839283 TAKE 1 CAPSULE B Y MOUTH EVERY DAY AT BEDTIME 05/09/2019 05/16/2019 Inactive magnesium oxide 400 mg (241.3 mg magnesium) tablet RxNorm: 1 85532 1/2 TABLET(S) PO QD 05/02/2019 05/09/2019 Inactive nystatin 100,000 unit/mL oral suspension RxNorm: 557850 5 Milliliter(s) Oral four times a day 04/24/2019 05/07/2019 Inactive cephalexin 500 mg capsule RxNorm: 981793 1 Capsule(s) Oral thre e times a day 04/21/2019 04/27/2019 Inactive cephalexin 500 mg capsule RxNorm: 238412 1 Capsule(s) Oral thre e times a day 04/21/2019 04/20/2019 Inactive potassium chloride ER 20 mEq tablet,extended release RxNorm: 880271 1 Tablet(s) Oral two times a day 04/10/2019 07/05/2019 Inactive Patient r equests 90 days supplyPatient requests 90 days supply nystatin 100,000 unit/mL oral suspension RxNorm: 829668 5 Milliliter(s) Oral four times a day 04/10/2019 04/23/2019 Inactive Diflucan 100 mg tablet RxNorm: 253556 1 Tablet(s) Oral QD 04/10/2019 04/17/2019 Inactive temazepam 15 mg capsule RxNorm: 173844 TAKE 1 CAPSULE B Y MOUTH EVERY DAY AT BEDTIME 04/04/2019 05/03/2019 Inactive Synthroid 50 mcg tablet RxNorm: 357453 1 TABLET(S) PO QD 04/04/2019 1 07/18/2018 Inactive lab draw in 2 months to recheck thyroid magnesium oxide 400 mg (241.3 mg magnesium) tablet RxNorm: 1 86423 1 Tablet(s) Oral QOD 04/04/2019 02/21/2020 Inactive hydrochlorothiazide 25 mg tablet RxNorm: 398977 1 Tablet(s) Oral QA M 03/28/2019 09/20/2019 Inactive amlodipine 5 mg tablet RxNorm: 235131 1 TABLET(S) PO BID 03/15/2019 0 06/12/2019 Inactive magnesium oxide 400 mg (241.3 mg magnesium) tablet RxNorm: 1 41010 1/2 TABLET(S) PO QD 03/06/2019 04/03/2019 Inactive Cytomel 5 mcg tablet RxNorm: 675596 1 Tablet(s) PO QD 02/20/201902/05 Inactive Cytomel 5 mcg tablet RxNorm: 038743 1 Tablet(s) PO QD 02/20/201905/07 Inactive amlodipine 5 mg tablet RxNorm: 536457 1 Tablet(s) PO BID 02/16/2019 0 02/15/2019 Inactive amlodipine 5 mg tablet RxNorm: 965485 1 Tablet(s) PO BID 02/16/2019 1 07/17/2018 Inactive amlodipine 5 mg tablet RxNorm: 114246 1 Tablet(s) PO BID 02/16/2019 0 02/16/2019 Inactive Synthroid 50 mcg tablet RxNorm: 026079 1 TABLET(S) PO QD 02/13/2019 1 Inactive Synthroid 50 mcg tablet RxNorm: 863721 1 TABLET(S) PO QD 01/16/2019 0 02/12/2019 Inactive magnesium oxide 400 mg (241.3 mg magnesium) tablet RxNorm: 1 85762 1/2 Tablet(s) PO QD 01/11/2019 03/05/2019 Inactive temazepam 15 mg capsule RxNorm: 401709 1 Capsule(s) PO QHS 01/04/20 19 04/03/2019 Inactive cefdinir 300 mg capsule RxNorm: 873155 1 Capsule(s) PO BID 12/22/19 19 12/20/2018 Inactive cefdinir 300 mg capsule RxNorm: 722415 1 Capsule(s) PO BID 12/22/19 19 12/24/2018 Inactive hydrochlorothiazide 25 mg tablet RxNorm: 294290 1 Tablet(s) PO QAM 12/19/2018 03/27/2019 Inactive magnesium oxide 400 mg (241.3 mg magnesium) tablet RxNorm: 1 69763 1/2 Tablet(s) PO QD 12/15/2018 01/11/2019 Inactive magnesium oxide 400 mg (241.3 mg magnesium) tablet RxNorm: 1 55110 1/2 Tablet(s) PO QD 12/15/2018 12/14/2018 Inactive Flonase Allergy Relief 50 mcg/actuation nasal spray,suspensi on RxNorm: 0113265 2 SPRAY NASAL QHS 11/09/2018 12/11/2018 Inactive temazepam 15 mg capsule RxNorm: 117303 1 Capsule(s) PO QHS 11/08/19 19 01/02/2019 Inactive Synthroid 50 mcg tablet RxNorm: 831251 1 Tablet(s) PO QD 10/21/2018 0 01/15/2019 Inactive potassium chloride ER 20 mEq tablet,extended release RxNorm: 145738 Tablet(s) 1 TABLET(S) PO BID 10/19/2018 04/09/2019 Inactive Patient reque sts 90 days supplyPatient requests 90 days supply Flonase Allergy Relief 50 mcg/actuation nasal spray,suspensi on RxNorm: 4192760 2 SPRAY NASAL QHS 10/14/2018 12/11/2018 Inactive Patient reques ts 90 days supply Flonase Allergy Relief 50 mcg/actuation nasal spray,suspensi on RxNorm: 8129508 2 [place] NASAL QHS 10/13/2018 10/13/2018 Inactive temazepam 15 mg capsule RxNorm: 475187 1 Capsule(s) PO QHS 10/06/19 19 11/06/2018 Inactive Synthroid 50 mcg tablet RxNorm: 348941 1 Tablet(s) PO QD 10/05/2018 0 10/20/2018 Inactive promethazine 6.25 mg/5 mL oral syrup RxNorm: 279863 5 M illiliter(s) PO Q6H as needed for cough 09/30/2018 12/11/2018 Inactive promethazine-DM 6.25 mg-15 mg/5 mL oral syrup RxNorm: 617093 5 PO Q6H as needed for cough 09/30/2018 12/11/2018 Inactive prednisone 10 mg tablet RxNorm: 772645 1 Tablet(s) PO QD 09/27/2018 0 09/26/2018 Inactive prednisone 10 mg tablet RxNorm: 742532 1 Tablet(s) PO QD 09/27/2018 0 10/03/2018 Inactive cefdinir 300 mg capsule RxNorm: 624744 1 Capsule(s) PO BID 09/24/19 19 09/29/2018 Inactive Macrobid 100 mg capsule RxNorm: 554760 1 Capsule(s) PO BID 09/21/1909/25/2018 Inactive potassium chloride ER 20 mEq tablet,extended release RxNorm: 482526 1 TABLET(S) PO BID 09/14/2018 10/13/2018 Inactive Patient reques ts 90 days supplyPatient requests 90 days supply potassium chloride ER 20 mEq tablet,extended release RxNorm: 737783 1 Tablet(s) PO BID 09/12/2018 09/13/2018 Inactive Patient reques ts 90 days supply Macrobid 100 mg capsule RxNorm: 168534 1 Capsule(s) PO BID 09/06/1909/11/2018 Inactive potassium chloride ER 20 mEq tablet,extended release RxNorm: 452559 1 TABLET(S) PO QD 1 TABLET(S) PO QD 08/26/2018 09/11/2018 Inactive Patien t requests 90 days supply potassium chloride ER 20 mEq tablet,extended release RxNorm: 222955 1 Tablet(s) PO QD 1 TABLET(S) PO QD 08/26/2018 08/25/2018 Inactive potassium chloride ER 20 mEq tablet,extended release RxNorm: 539988 1 TABLET(S) PO QD 08/25/2018 08/25/2018 Inactive Synthroid 50 mcg tablet RxNorm: 839624 1 TABLET(S) PO QD DAW1 08/2309/04/2018 Inactive potassium chloride ER 20 mEq tablet,extended release RxNorm: 866461 1 Tablet(s) PO QD 07/28/2018 08/24/2018 Inactive potassium chloride ER 20 mEq tablet,extended release RxNorm: 532301 1 Tablet(s) PO QD 07/28/2018 07/27/2018 Inactive hydrochlorothiazide 25 mg tablet RxNorm: 989800 1 Tablet(s) PO QAM 06/27/2018 12/18/2018 Inactive Synthroid 50 mcg tablet RxNorm: 977231 1 Tablet(s) PO QD 06/2708/22/2018 Inactive Synthroid 50 mcg tablet RxNorm: 396396 1 TABLET(S) PO QD 06/1306/26/2018 Inactive Synthroid 75 mcg tablet RxNorm: 237663 1 TABLET(S) PO QD 06/13/2018 0 09/04/2018 Inactive BRAND ONLY mupirocin 2 % topical ointment RxNorm: 637606 1 Applica tion TOP BID to affected area as needed 05/03/2018 09/14/2018 Inactive hydrochlorothiazide 25 mg tablet RxNorm: 527787 1 TABLET(S) PO QD 1 07/02/2017 06/26/2018 Inactive Synthroid 50 mcg tablet RxNorm: 469861 1 Tablet(s) PO QD 04/1506/12/2018 Inactive Synthroid 50 mcg tablet RxNorm: 636210 1 Tablet(s) PO QD 04/1504/14/2018 Inactive Synthroid 75 mcg tablet RxNorm: 445814 1 Tablet(s) PO QD 03/15/2018 1 06/14/2017 Inactive BRAND ONLY temazepam 15 mg capsule RxNorm: 137758 1 Capsule(s) PO QHS 03/15/20 18 06/12/2018 Inactive Synthroid 75 mcg tablet RxNorm: 851257 1 Tablet(s) PO QD 01/27/2018 1 Inactive BRAND ONLY Synthroid 75 mcg tablet RxNorm: 644919 1 Tablet(s) PO QD (6 day s per week) 01/17/2018 01/26/2018 Inactive BRAND ONLY Duexis 800 mg-26.6 mg tablet RxNorm: 7828730 1/2 Tablet(s) PO BID 0 10/20/2017 10/22/2017 Inactive Synthroid 75 mcg tablet RxNorm: 407987 1 Tablet(s) PO QD 09/17/2017 1 Inactive BRAND ONLY hydrochlorothiazide 25 mg tablet RxNorm: 637369 1 TABLET(S) PO QD 0 08/30/2017 05/01/2018 Inactive hydrochlorothiazide 25 mg tablet RxNorm: 066504 1 Tablet(s) PO QAM 06/03/2017 09/14/2018 Inactive hydrochlorothiazide 12.5 mg tablet RxNorm: 791747 1 Tablet(s) PO QA M 05/25/2017 06/02/2017 Inactive Synthroid 75 mcg tablet RxNorm: 210388 1 Tablet(s) PO QD 05/14/2017 0 09/17/2017 Inactive BRAND ONLY Restoril 15 mg capsule RxNorm: 466831 TAKE 1 CAPSULE BY MOUTH EVERY NIGHT AT BEDTIME NEEDED 03/05/2017 04/02/2017 Inactive Synthroid 75 mcg tablet RxNorm: 318855 1 Tablet(s) PO QD 01/18/2017 1 07/15/2016 Inactive BRAND ONLY Synthroid 50 mcg tablet RxNorm: 573326 1 Tablet(s) PO QD 01/13/2017 0 01/17/2017 Inactive tizanidine 2 mg tablet RxNorm: 093268 1 Tablet(s) PO QHS for spasm 01/04/2017 03/21/2017 Inactive tizanidine 2 mg tablet RxNorm: 676830 1 Tablet(s) PO QHS for spasm 12/17/2016 01/04/2017 Inactive hydrochlorothiazide 25 mg tablet RxNorm: 396646 1 Tablet(s) PO QD 0 12/04/2016 01/03/2017 Inactive Synthroid 50 mcg tablet RxNorm: 950061 1 Tablet(s) PO QD as directe d 11/18/2016 01/13/2017 Inactive Synthroid 75 mcg tablet RxNorm: 434184 1 Tablet(s) PO QD as directe d 11/18/2016 01/10/2017 Inactive Restoril 15 mg capsule RxNorm: 618787 1 Capsule(s) PO QHS as ne eded for sleep 11/16/2016 03/05/2017 Inactive losartan 50 mg tablet RxNorm: 475959 1 Tablet(s) PO BID 10/19/2016 Inactive prednisone 20 mg tablet RxNorm: 538667 1 Tablet(s) PO QD 10/08/2016 0 10/07/2016 Inactive clindamycin 300 mg capsule RxNorm: 775538 1 Capsule(s) PO TID 10/0810/17/2016 Inactive prednisone 20 mg tablet RxNorm: 400474 1 Tablet(s) PO QD 10/08/2016 0 10/12/2016 Inactive clindamycin 300 mg capsule RxNorm: 284821 1 Capsule(s) PO TID 10/0810/07/2016 Inactive cephalexin 500 mg capsule RxNorm: 972026 1 Capsule(s) PO TID 201610/07/2016 Inactive levothyroxine 75 mcg tablet RxNorm: 737039 TAKE 1 TABLET BY TONE TH EVERY DAY 10/02/2016 10/04/2016 Inactive levothyroxine 75 mcg tablet RxNorm: 692766 1 Tablet(s) PO QD 201610/04/2016 Inactive Restoril 15 mg capsule RxNorm: 836682 1 Capsule(s) PO QHS 08/23/2016 11/15/2016 Inactive levothyroxine 75 mcg tablet RxNorm: 848793 1 Tablet(s) PO QD 201608/19/2016 Inactive levothyroxine 75 mcg tablet RxNorm: 002753 1 Tablet(s) PO QD 201609/09/2016 Inactive levothyroxine 50 mcg capsule RxNorm: 733496 1 Capsule(s) PO QD 06/201608/19/2016 Inactive hydrochlorothiazide 25 mg tablet RxNorm: 120506 1 Tablet(s) PO QD 0 06/23/2016 12/03/2016 Inactive amoxicillin 500 mg tablet RxNorm: 342646 1 Tablet(s) PO TID 016 06/03/2016 Inactive doxycycline hyclate 100 mg capsule RxNorm: 7987296 1 Capsule(s) PO BID 06/03/2016 06/12/2016 Inactive doxycycline hyclate 100 mg capsule RxNorm: 4483018 1 Capsule(s) PO BID 06/03/2016 06/02/2016 Inactive levothyroxine 75 mcg tablet RxNorm: 288236 1 Tablet(s) PO QD 201505/19/2016 Inactive losartan 50 mg tablet RxNorm: 637844 1 TABLET(S) PO BID 04/07/2016 Inactive metoprolol succinate ER 50 mg tablet,extended release 24 hr RxNorm: 524145 1 TABLET(S) PO QHS AND 1/2 TAB IN THE AM--REPLACES 25MG DOSE 04/03/2016 07/27/2016 Inactive Restoril 15 mg capsule RxNorm: 687430 1 Capsule(s) PO QHS as ne eded for sleep 02/24/2016 05/23/2016 Inactive hydrochlorothiazide 12.5 mg tablet RxNorm: 082468 1 Tab let(s) PO QD replaces 25mg dose 01/13/2016 06/22/2016 Inactive metoprolol succinate ER 50 mg tablet,extended release 24 hr RxNorm: 428123 1 Tablet(s) PO QHS and 1/2 tab in the AM--replaces 25mg dose 10/17/2015 04/02/2016 Inactive amlodipine 2.5 mg tablet RxNorm: 876466 1 Tablet(s) PO QHS 10/08/19 16 10/07/2015 Inactive amlodipine 2.5 mg tablet RxNorm: 838481 1 Tablet(s) PO QHS 10/08/19 16 10/16/2015 Inactive losartan 50 mg tablet RxNorm: 133491 1 TABLET(S) PO BID 09/23/2015 Inactive Medrol (Topher) 4 mg tablets in a dose pack RxNorm: 823427 Take as directed 09/03/2015 10/07/2015 Inactive Lasix 40 mg tablet RxNorm: 292522 1 TABLET(S) PO QD PRN FOR SWELLIN G 08/27/2015 12/04/2015 Inactive Lasix 40 mg tablet RxNorm: 082755 1 Tablet(s) PO QD prn for swellin g 08/01/2015 08/26/2015 Inactive losartan 50 mg tablet RxNorm: 069724 1 Tablet(s) PO BID 06/27/2015 Inactive Zyrtec 10 mg tablet RxNorm: 0325176 1 Tablet(s) PO QD 12/05/2015 Active magnesium oxide 400 mg (241.3 mg magnesium) tablet RxNorm: 64694 1 oral 05/25/2022 Active levothyroxine 50 mcg capsule RxNorm: 987534 1 Capsule(s) PO QD 06/201607/07/2016 Inactive sotalol 80 mg tablet RxNorm: 9522415 1/2 Tablet(s) PO BID 09/05/2018 09/04/2018 Inactive melatonin 1 mg tablet RxNorm: 334728 1 Tablet(s) PO QHS as need ed for sleep 12/05/2015 12/04/2015 Inactive levothyroxine 75 mcg tablet RxNorm: 592380 1 Tablet(s) PO 6 day s a week 07/08/2016 07/07/2016 Inactive Vitamin D3 1,000 unit tablet RxNorm: 850187 1 Tablet(s) PO QD 12/0412/04/2015 Inactive sotalol 80 mg tablet RxNorm: 5215139 1 Tablet(s) PO BID 08/30/2017 Inactive Synthroid 75 mcg tablet RxNorm: 032500 2 Tablet(s) PO M, W, F 09/1509/14/2018 Inactive tizanidine 2 mg tablet RxNorm: 417439 1 Tablet(s) PO QHS for spasm 12/17/2016 12/16/2016 Inactive Nasacort AQ 55 mcg nasal spray aerosol RxNorm: 2193759 [place] as needed 12/12/2018 12/11/2018 Inactive fluocinonide 0.05 % topical gel RxNorm: 514767 TOP as needed on gum s 07/28/2016 07/27/2016 Inactive Flonase Allergy Relief 50 mcg/actuation nasal spray,suspensi on RxNorm: 4743629 2 [place] NASAL QHS 10/13/2018 10/12/2018 Inactive Synthroid 50 mcg tablet RxNorm: 390903 1 Tablet(s) PO Tu, Thur, Sat, Sun 09/20/2018 09/19/2018 Inactive Osteo Bi-Flex (5-Loxin) 1,500 mg-400 unit-100 mg tablet RxNo rm: 1 Tablet(s) PO QD 12/05/2015 12/04/2015 Inactive hydrochlorothiazide 25 mg tablet RxNorm: 220723 1/2 Tablet(s) PO QA M 01/13/2016 01/12/2016 Inactive metoprolol succinate ER 25 mg tablet,extended release 24 hr RxNorm: 780544 1 Tablet(s) PO QD 10/17/2015 10/16/2015 Inactive promethazine-DM 6.25 mg-15 mg/5 mL oral syrup RxNorm: 700097 5 PO Q6H as needed for cough 09/30/2018 09/29/2018 Inactive Synthroid 50 mcg tablet RxNorm: 048129 1 Tablet(s) PO QD 10/05/2018 0 10/04/2018 Inactive mupirocin 2 % topical ointment RxNorm: 383746 1 Applica tion TOP BID to affected area as needed 05/03/2018 05/02/2018 Inactive hydrochlorothiazide 25 mg tablet RxNorm: 944639 1 Tablet(s) PO QOD 01/13/2016 01/12/2016 Inactive Vitamin D3 1000 units Capsule RxNorm: 1 Capsule(s) PO QD 9 12/11/2018 Inactive levothyroxine 75 mcg tablet RxNorm: 002848 1 Tablet(s) PO QD 201505/07/2016 Inactive potassium chloride ER 10 mEq capsule,extended release RxNorm : 713171 1 Capsule(s) PO QD 12/05/2015 12/04/2015 Inactive aspirin 81 mg tablet RxNorm: 439934 1 Tablet(s) PO QHS 01/22/2020 Inactive Claritin 10 mg tablet RxNorm: 443220 1 Tablet(s) PO QD 12/05/2015 Inactive Vitamin B12 1000mcg Tablet RxNorm: 1/2 Tablet(s) PO QD 12/12/2018 12/11/2018 Inactive temazepam 15 mg capsule RxNorm: 703778 1 Capsule(s) PO QHS 03/15/20 18 03/14/2018 Inactive hydrochlorothiazide 25 mg tablet RxNorm: 860929 1 Tablet(s) PO QAM 12/05/2015 12/04/2015 Inactive sotalol 80 mg tablet RxNorm: 0606444 1/2 Tablet(s) PO QD 09/22/2018 0 09/21/2018 Inactive mupirocin 2 % topical ointment RxNorm: 887734 TOP as needed 017 08/24/2016 Inactive hydrochlorothiazide 25 mg tablet RxNorm: 752941 1/2 Tablet(s) PO QA M 05/25/2017 05/24/2017 Inactive amlodipine 10 mg tablet RxNorm: 340541 1 Tablet(s) PO QD 02/16/2019 0 02/15/2019 Inactive Citracal + D Slow Release 600 mg calcium-500 unit tablet,ext .release RxNorm: 2 Tablet(s) PO QD 02/16/2019 02/15/2019 Inactive triamcinolone acetonide 0.1 % topical cream RxNorm: 7454187 TOP as needed 12/12/2018 12/11/2018 Inactive Restoril 15 mg capsule RxNorm: 060067 1 Capsule(s) PO QHS 02/24/2016 02/23/2016 Inactive hydrochlorothiazide 25 mg tablet RxNorm: 142379 1/2 Tablet(s) PO QO D 01/13/2016 01/12/2016 Inactive promethazine 6.25 mg/5 mL oral syrup RxNorm: 397783 5 M illiliter(s) PO Q6H as needed for cough 09/30/2018 09/29/2018 Inactive Centrum Silver Women 8 mg iron-400 mcg-300 mcg tablet RxNorm : 1 Tablet(s) PO QD 08/30/2017 08/29/2017 Inactive losartan 50 mg tablet RxNorm: 597627 1 Tablet(s) PO QHS 01/04/2017 Inactive levothyroxine 75 mcg tablet RxNorm: 359327 1 Tablet(s) PO 6 day s a week 10/05/2016 10/04/2016 Inactive losartan 50 mg tablet RxNorm: 104058 2 Tablet(s) PO QD 06/27/2015 Inactive Culturelle 10 billion cell capsule RxNorm: 353957 1-2 Capsule(s ) PO QD 05/10/2019 05/09/2019 Inactive Culturelle 10 billion cell capsule RxNorm: 766500 1 Capsule(s) PO Q D 08/30/2017 08/29/2017 Inactive Synthroid 75 mcg tablet RxNorm: 079261 1 Tablet(s) PO MWF 01/18/2017 01/17/2017 Inactive [...] Date S ervice Location COMPLETE BLOOD COUNT [id number] WBC 6.5 10e9/L 09/27/19 19 Unknown COMPLETE BLOOD COUNT [id number] RBC 4.22 10e12/L 2018 Unknown COMPLETE BLOOD COUNT [id number] HEMOGLOBIN 13.3 g/dL 09/27/19 19 Unknown COMPLETE BLOOD COUNT 1079395 HEMATOCRIT 38.7 % 09/27/19 19 Unknown COMPLETE BLOOD COUNT 1678220 MCV 91.7 fL 9 Unknown COMPLETE BLOOD COUNT [id number] MCH 31.5 pg 9 Unknown COMPLETE BLOOD COUNT 1760529 MCHC 34.4 g/dL 9 Unknown COMPLETE BLOOD COUNT [id number] PLATELET COUNT 326 10e9/L Unknown COMPLETE BLOOD COUNT 8764475 Mean Plt Volume 8.9 fL Unknown COMPLETE BLOOD COUNT 8363447 Neut Auto 69.0 % 9 Unknown COMPLETE BLOOD COUNT 6794615 Lymph Auto 16.5 % 09/27/19 19 Unknown COMPLETE BLOOD COUNT 9657597 Dupage Auto 8.3 % 9 Unknown COMPLETE BLOOD COUNT 8836768 RDW 12.2 % 9 Unknown COMPLETE BLOOD COUNT [id number] Eos Auto 5.9 % 9 Unknown COMPLETE BLOOD COUNT 9516069 Baso Auto 0.3 % 9 Unknown COMPLETE BLOOD COUNT [id number] Neutrophil Abs 4.48 10e9/L Unknown COMPLETE BLOOD COUNT 8484061 Lymphocyte Abs 1.07 10e9/L Unknown COMPLETE BLOOD COUNT [id number] Monocyte Abs 0.54 10e9/L 09/06 Unknown COMPLETE BLOOD COUNT [id number] Eosinophil Abs 0.38 10e9/L Unknown COMPLETE BLOOD COUNT 6245392 RDW-SD 39.8 fL 9 Unknown COMPLETE BLOOD COUNT [id number] Basophil Abs 0.02 10e9/L 09/06 Unknown GFR CALC [id number] GFR Afr Amr >60 mL/min 12/12/2015 Unknow n GFR CALC [id number] GFR Non Afr Amr >60 mL/min 12/12/2015 [place] [address] Glucose 100 mg/dL 12/11 [place] [address] CREATININE 0.78 mg/dL 12/2015 [place] [address] BUN 14 mg/dL 12/11 [place] [address] SODIUM 132 mmol/L 12/2015 [place] [address] POTASSIUM 3.6 mmol/L 12/2015 [place] [address] CHLORIDE 97 mmol/L 12/11 [place] [address] Bicarbonate 28 mmol/L 12/2015 [place] [address] AGAP 7 mmol/L 12/11 [place] [address] CALCIUM 9.3 mg/dL 12/11 [place] [address] Glucose 92 mg/dL 12/04 [place] [address] CREATININE 0.76 mg/dL [place] [address] BUN 8 mg/dL 12/04 [place] [address] SODIUM 133 mmol/L 11/07 [place] [address] POTASSIUM 4.1 mmol/L 11/07 [place] [address] CHLORIDE 97 mmol/L 12/04 [place] [address] Bicarbonate 27 mmol/L [place] [address] AGAP 9 mmol/L 12/04 [place] [address] CALCIUM 9.8 mg/dL 12/04 Unknown GFR CALC [id number] GFR Afr Amr >60 mL/min 12/05/2015 Unknow n COMPREHENSIVE METABOLIC 33554 AST 36 U/L 2015 Unknown COMPREHENSIVE METABOLIC 88170 ALT 41 U/L 2015 Unknown COMPREHENSIVE METABOLIC 45839 BUN 11 mg/dL 2015 Unknown COMPREHENSIVE METABOLIC 58820 ALBUMIN 4.2 g/dL 2015 Unknown COMPREHENSIVE METABOLIC 55330 CHLORIDE 93 mmol/L 2015 Unknown COMPREHENSIVE METABOLIC 05320 Bili Total 1.0 mg/dL 11/24 Unknown COMPREHENSIVE METABOLIC 22660 ALK PHOS 79 U/L 2015 Unknown COMPREHENSIVE METABOLIC 77951 SODIUM 128 mmol/L 11/24 Unknown COMPREHENSIVE METABOLIC 89198 CREATININE 0.65 mg/dL 11/06 Unknown COMPREHENSIVE METABOLIC 62779 CALCIUM 9.4 mg/dL 2015 Unknown COMPREHENSIVE METABOLIC 93105 POTASSIUM 3.7 mmol/L 11/24 Unknown COMPREHENSIVE METABOLIC 19593 Total Protein 6.9 g/dL Unknown COMPREHENSIVE METABOLIC 38135 Glucose 101 mg/dL 2015 Unknown COMPREHENSIVE METABOLIC 72121 Bicarbonate 27 mmol/L 11/06 Unknown COMPREHENSIVE METABOLIC 13898 AGAP 8 mmol/L 2015 Unknown THYROID STIMULATING HORMONE 21588 TSH 2.983 uIU/mL 11/25/2015 Unknown COMPLETE BLOOD COUNT [id number] WBC 9.0 10e9/L 11/25/19 16 Unknown COMPLETE BLOOD COUNT [id number] RBC 3.98 10e12/L 2015 Unknown COMPLETE BLOOD COUNT 9101708 HEMOGLOBIN 12.8 g/dL 11/25/19 16 Unknown COMPLETE BLOOD COUNT 4334797 HEMATOCRIT 36.1 % 11/25/19 16 Unknown COMPLETE BLOOD COUNT 1036117 MCV 90.7 fL 6 Unknown COMPLETE BLOOD COUNT 7497849 MCH 32.2 pg 6 Unknown COMPLETE BLOOD COUNT 7482975 MCHC 35.5 g/dL 6 Unknown COMPLETE BLOOD COUNT 3779596 PLATELET COUNT 291 10e9/L Unknown COMPLETE BLOOD COUNT 5182237 Mean Plt Volume 8.8 fL Unknown COMPLETE BLOOD COUNT 5050279 Neut Auto 72.2 % 6 Unknown COMPLETE BLOOD COUNT 6657412 Lymph Auto 19.4 % 11/25/19 16 Unknown COMPLETE BLOOD COUNT 9911372 Dupage Auto 7.4 % 6 Unknown COMPLETE BLOOD COUNT 6962405 RDW 11.8 % 6 Unknown COMPLETE BLOOD COUNT 1121156 Eos Auto 0.7 % 6 Unknown COMPLETE BLOOD COUNT 3100057 Baso Auto 0.3 % 6 Unknown COMPLETE BLOOD COUNT 4509207 Neutrophil Abs 6.50 10e9/L Unknown COMPLETE BLOOD COUNT 2856017 Lymphoctye Abs 1.75 10e9/L Unknown COMPLETE BLOOD COUNT 8335496 Monocyte Abs 0.67 10e9/L 11/06 Unknown COMPLETE BLOOD COUNT 8521435 Eosinophil Abs 0.06 10e9/L Unknown COMPLETE BLOOD COUNT 5410353 RDW-SD 38.1 fL 6 Unknown COMPLETE BLOOD COUNT 2455741 Basophil Abs 0.03 10e9/L 11/06 Unknown GFR CALC 8020696 GFR Non Afr Amr >60 mL/min 11/25/2015 Un known GFR CALC 2125653 GFR Afr Amr >60 mL/min 11/25/2015 Unknow n Procedures Procedure Codes Date SARSCOV CORONAVIRUS AG IA CPT-4: 15480 01/27/2022 CEFTRIAXONE SODIUM INJECTION CPT-4: J0696 01/27/2022 THER/PROPH/DIAG INJ SC/IM CPT-4: 73549 01/27/2022 URINALYSIS NONAUTO W/O SCOPE CPT-4: 15095 05/12/2021 RML URINE CULTURE/ COLONY COUNT CPT-4: 69414 05/12/20 21 FLU VACC PRSV FREE INC ANTIG 65 AND OLDER CPT-4: 11208 02/27/2021 ADMIN INFLUENZA VIRUS VAC CPT-4: G0008 02/27/2021 FLU VACC PRSV FREE INC ANTIG 65 AND OLDER CPT-4: 23241 02/27/2021 RML URINE CULTURE/ COLONY COUNT CPT-4: 82243 11/12/19 21 URINALYSIS NONAUTO W/O SCOPE CPT-4: 80151 11/11/2020 DESTRUCT PREMALG LESION (Cryosurgery) CPT-4: 68945 RML URINE CULTURE/ COLONY COUNT CPT-4: 09729 02/20/20 20 URINALYSIS NONAUTO W/O SCOPE CPT-4: 27802 02/13/2020 RML URINE CULTURE/ COLONY COUNT CPT-4: 37352 02/13/20 20 CEFTRIAXONE SODIUM INJECTION CPT-4: J0696 02/13/2020 THER/PROPH/DIAG INJ SC/IM CPT-4: 61701 02/13/2020 URINALYSIS NONAUTO W/O SCOPE CPT-4: 66687 11/09/2019 RML URINE CULTURE/ COLONY COUNT CPT-4: 30121 11/09/19 20 CEFTRIAXONE SODIUM INJECTION CPT-4: J0696 05/18/2019 THER/PROPH/DIAG INJ SC/IM CPT-4: 20952 05/18/2019 CEFTRIAXONE SODIUM INJECTION CPT-4: J0696 05/17/2019 THER/PROPH/DIAG INJ SC/IM CPT-4: 94747 05/17/2019 RML URINE CULTURE/ COLONY COUNT CPT-4: 12091 05/08/20 19 THROAT CULTURE CPT-4: 17650 05/08/2019 URINALYSIS NONAUTO W/O SCOPE CPT-4: 59818 04/21/2019 RML URINE CULTURE/ COLONY COUNT CPT-4: 16880 04/21/20 19 CEFTRIAXONE SODIUM INJECTION CPT-4: J0696 04/21/2019 THER/PROPH/DIAG INJ SC/IM CPT-4: 36875 04/21/2019 FLU VACC PRSV FREE INC ANTIG 65 AND OLDER CPT-4: 58901 03/02/2019 FLU VACC PRSV FREE INC ANTIG 65 AND OLDER CPT-4: 65583 03/02/2019 ADMIN INFLUENZA VIRUS VAC CPT-4: G0008 03/02/2019 URINALYSIS NONAUTO W/O SCOPE CPT-4: 11738 02/16/2019 Removal impacted cerumen using irrigation/lavage, unilateral CPT-4: 86343 12/14/2018 UA W/MICR CPT-4: 58948 10/05/2018 ROUTINE VENIPUNCTURE CPT-4: 59618 09/26/2018 RML COMPLETE CBC W/AUTO DIFF WBC CPT-4: 30071 019 CEFTRIAXONE SODIUM INJECTION CPT-4: J0696 09/22/2018 THER/PROPH/DIAG INJ SC/IM CPT-4: 34203 09/22/2018 INFLUENZA ASSAY W/OPTIC CPT-4: 47110 09/22/2018 URINALYSIS NONAUTO W/O SCOPE CPT-4: 29647 09/20/2018 CEFTRIAXONE SODIUM INJECTION CPT-4: J0696 09/20/2018 THER/PROPH/DIAG INJ SC/IM CPT-4: 14708 09/20/2018 RML URINE CULTURE/ COLONY COUNT CPT-4: 45393 09/21/19 19 RML URINE CULTURE/ COLONY COUNT CPT-4: 58134 09/15/19 19 URINALYSIS NONAUTO W/O SCOPE CPT-4: 38527 09/05/2018 RML URINE CULTURE/ COLONY COUNT CPT-4: 98356 09/06/19 19 URINALYSIS NONAUTO W/O SCOPE CPT-4: 32615 04/20/2018 RML URINE CULTURE/ COLONY COUNT CPT-4: 56497 04/20/20 18 CERUM REMOVAL CPT-4: 60108 03/18/2018 FLU VACC PRSV FREE INC ANTIG 65 AND OLDER CPT-4: 98475 03/03/2018 ADMIN INFLUENZA VIRUS VAC CPT-4: G0008 03/03/2018 PRESCRIP TRANSMIT VIA ERX SY CPT-4: G8553 05/25/2017 FLU VACC PRSV FREE INC ANTIG 65 AND OLDER CPT-4: 70270 03/08/2017 ADMIN INFLUENZA VIRUS VAC CPT-4: G0008 03/08/2017 PRESCRIP TRANSMIT VIA ERX SY CPT-4: G8553 01/18/2017 PRESCRIP TRANSMIT VIA ERX SY CPT-4: G8553 11/18/2016 RML URINE CULTURE/ COLONY COUNT CPT-4: 20500 10/27/19 17 URINALYSIS NONAUTO W/O SCOPE CPT-4: 36271 10/26/2016 PRESCRIP TRANSMIT VIA ERX SY CPT-4: G8553 10/08/2016 PRESCRIP TRANSMIT VIA ERX SY CPT-4: G8553 10/05/2016 PRESCRIP TRANSMIT VIA ERX SY CPT-4: G8553 06/23/2016 PRESCRIP TRANSMIT VIA ERX SY CPT-4: G8553 06/03/2016 INFLUENZA ASSAY W/OPTIC CPT-4: 70318 05/26/2016 FLU VACC PRSV FREE INC ANTIG 65 AND OLDER CPT-4: 00644 03/19/2016 ADMIN INFLUENZA VIRUS VAC CPT-4: G0008 03/19/2016 PNEUMOCOCCAL VACC 13 CARLIE IM CPT-4: 85423 01/13/2016 ADMIN PNEUMOCOCCAL VACCINE CPT-4: G0009 01/13/2016 PRESCRIP TRANSMIT VIA ERX SY CPT-4: G8553 01/13/2016 URINALYSIS NONAUTO W/O SCOPE CPT-4: 35745 11/27/2015 RML URINE CULTURE/ COLONY COUNT CPT-4: 81858 11/27/19 16 PRESCRIP TRANSMIT VIA ERX SY [...] 97.9 (F) We ight: 141 lbs Code: 18065-2 08/25/2022 Blood Pressure 1: 124/78 Code: 8480-6 Heart Rate 1: 75 bpm Respiratory Rate: 20 bpm SpO2: 98% Temperature: 36.4 (C) / 97.5 (F) We ight: 134 lbs Code: 75978-7 08/11/2022 Blood Pressure 1: 136/74 Code: 8480-6 Heart Rate 1: 69 bpm Respiratory Rate: 18 bpm SpO2: 97% Temperature: 36.7 (C) / 98.0 (F) We ight: 134 lbs Code: 34924-2 07/28/2022 Blood Pressure 1: 126/74 Code: 8480-6 Heart Rate 1: 74 bpm Respiratory Rate: 20 bpm SpO2: 97% Temperature: 36.4 (C) / 97.5 (F) We ight: 135 lbs Code: 09389-2 07/14/2022 Blood Pressure 1: 130/76 Code: 8480-6 Heart Rate 1: 51 bpm SpO2: 100% Temperature: 36.3 (C) / 97.3 (F) Weight: 130 lbs Code : 32884-7 06/23/2022 Blood Pressure 1: 140/80 Code: 8480-6 Heart Rate 1: 58 bpm Respiratory Rate: 20 bpm SpO2: 98% Temperature: 36.3 (C) / 97.3 (F) We ight: 135 lbs Code: 33806-4 05/25/2022 Blood Pressure 1: 161/82 Code: 8480-6 BMI: 24.3 Code: 23367-4 Heart Rate 1: 72 bpm Height: 5'3" Code: 8302-2 SpO2: 97% Temperature: 3 6.3 (C) / 97.3 (F) Weight: 137 lbs Code: 48670-7 03/19/2022 Blood Pressure 1: 140/82 Code: 8480-6 BMI: 23.2 Code: 23276-1 Heart Rate 1: 56 bpm Height: 5'3" Code: 8302-2 SpO2: 92% Temperature: 3 6.8 (C) / 98.2 (F) Weight: 131 lbs Code: 62606-8 02/16/2022 Blood Pressure 1: 154/82 Code: 8480-6 BMI: 23.6 Code: 40463-3 Heart Rate 1: 64 bpm Height: 5'3" Code: 8302-2 Respiratory Rate: 20 bpm SpO2: 96% Temperature: 36.8 (C) / 98.3 (F) Weight: 133 lbs Code: 64929-4 2022 Blood Pressure 1: 140/74 Code: 8480-6 BMI: 22.5 Code: 47197-7 Heart Rate 1: 54 bpm Height: 5'3" Code: 8302-2 Respiratory Rate: 18 bpm SpO2: 96% Temperature: 36.8 (C) / 98.2 (F) Weight: 127 lbs Code: 29248-0 01/27/2022 Blood Pressure 1: 144/80 Code: 8480-6 Heart Rate 1: 84 bpm Respiratory Rate: 22 bpm SpO2: 96% Temperature: 36.7 (C) / 98.0 (F) We ight: 134 lbs Code: 40961-3 10/28/2021 Blood Pressure 1: 152/82 Code: 8480-6 BMI: 22.8 Code: 03924-2 Heart Rate 1: 68 bpm Height: 5'4" Code: 8302-2 Respiratory Rate: 20 bpm SpO2: 98% Temperature: 36.8 (C) / 98.2 (F) Weight: 133 lbs Code: 37198-4 09/23/2021 Blood Pressure 1: 154/78 Code: 8480-6 Heart Rate 1: 66 bpm Respiratory Rate: 18 bpm SpO2: 97% Temperature: 36.2 (C) / 97.1 (F) We ight: 130 lbs Code: 03117-0 08/21/2021 Blood Pressure 1: 166/78 Code: 8480-6 Heart Rate 1: 76 bpm Respiratory Rate: 20 bpm SpO2: 98% Temperature: 36.5 (C) / 97.7 (F) We ight: 134 lbs Code: 56352-3 07/30/2021 Blood Pressure 1: 146/68 Code: 8480-6 Heart Rate 1: 76 bpm Respiratory Rate: 20 bpm SpO2: 98% Temperature: 36.7 (C) / 98.1 (F) We ight: 135 lbs Code: 86489-6 06/19/2021 Blood Pressure 1: 96/50 Code: 8480-6 Heart Rate 1: 72 bpm Respiratory Rate: 20 bpm SpO2: 97% Temperature: 36.8 (C) / 98.3 (F) Weight: 132 lbs Code: 43190-2 05/08/2021 Blood Pressure 1: 132/74 Code: 8480-6 Heart Rate 1: 72 bpm Respiratory Rate: 20 bpm SpO2: 99% Temperature: 36.8 (C) / 98.2 (F) We ight: 132 lbs Code: 26637-5 04/28/2021 Blood Pressure 1: 132/62 Code: 8480-6 Heart Rate 1: 88 bpm Respiratory Rate: 20 bpm SpO2: 98% Temperature: 36.6 (C) / 97.9 (F) We ight: 141 lbs Code: 79120-5 03/19/2021 Blood Pressure 1: 140/67 Code: 8480-6 Heart Rate 1: 71 bpm Respiratory Rate: 15 bpm SpO2: 99% Temperature: 36.3 (C) / 97.3 (F) We ight: 142 lbs Code: 24613-4 02/06/2021 Blood Pressure 1: 152/74 Code: 8480-6 Heart Rate 1: 80 bpm Respiratory Rate: 20 bpm SpO2: 96% Temperature: 36.7 (C) / 98.0 (F) We ight: 138 lbs Code: 82243-7 12/20/2020 Blood Pressure 1: 112/63 Code: 8480-6 Heart Rate 1: 80 bpm Respiratory Rate: 16 bpm SpO2: 99% Temperature: 36.4 (C) / 97.6 (F) We ight: 136 lbs Code: 77110-1 12/11/2020 Blood Pressure 1: 123/64 Code: 8480-6 BMI: 23.5 Code: 06247-9 Heart Rate 1: 68 bpm Height: 5'4" Code: 8302-2 Respiratory Rate: 15 bpm SpO2: 98% Temperature: 36.2 (C) / 97.2 (F) Weight: 137 lbs Code: 49436-6 11/11/2020 Blood Pressure 1: 154/82 Code: 8480-6 Heart Rate 1: 76 bpm SpO2: 99% Temperature: 36.9 (C) / 98.5 (F) Weight: 136 lbs Code: 22155-7 09/05/2020 Blood Pressure 1: 150/66 Code: 8480-6 Heart Rate 1: 80 bpm Respiratory Rate: 20 bpm SpO2: 99% Temperature: 37.0 (C) / 98.6 (F) We ight: 132 lbs Code: 12211-3 07/29/2020 Blood Pressure 1: 152/72 Code: 8480-6 Heart Rate 1: 84 bpm Respiratory Rate: 20 bpm SpO2: 97% Temperature: 36.8 (C) / 98.2 (F) We ight: 133 lbs Code: 58960-8 06/24/2020 Blood Pressure 1: 112/68 Code: 8480-6 Heart Rate 1: 72 bpm Respiratory Rate: 20 bpm SpO2: 98% Temperature: 36.8 (C) / 98.2 (F) We ight: 130 lbs Code: 74205-6 06/21/2020 Blood Pressure 1: 129/78 Code: 8480-6 He art Rate 1: 81 bpm 02/29/2020 Blood Pressure 1: 136/70 Code: 8480-6 Heart Rate 1: 76 bpm Respiratory Rate: 20 bpm SpO2: 98% Temperature: 36.4 (C) / 97.5 (F) We ight: 130 lbs Code: 21901-3 02/22/2020 Blood Pressure 1: 142/67 Code: 8480-6 Heart Rate 1: 64 bpm Respiratory Rate: 16 bpm SpO2: 98% Temperature: 36.5 (C) / 97.7 (F) We ight: 128 lbs Code: 65096-2 02/13/2020 Blood Pressure 1: 124/80 Code: 8480-6 Heart Rate 1: 61 bpm Respiratory Rate: 15 bpm SpO2: 97% Temperature: 36.2 (C) / 97.1 (F) We ight: Code: 54153-1 2020 Blood Pressure 1: 124/60 Code: 8480-6 Heart Rate 1: 92 bpm Respiratory Rate: 20 bpm SpO2: 97% Temperature: 36.4 (C) / 97.5 (F) We ight: 129 lbs Code: 57052-3 01/22/2020 Blood Pressure 1: 134/54 Code: 8480-6 Heart Rate 1: 72 bpm Respiratory Rate: 20 bpm SpO2: 97% Temperature: 37.1 (C) / 98.7 (F) We ight: 128 lbs Code: 95573-3 12/26/2019 Blood Pressure 1: 124/74 Code: 8480-6 Heart Rate 1: 64 bpm Respiratory Rate: 20 bpm SpO2: 98% Temperature: 37.0 (C) / 98.6 (F) We ight: 126 lbs Code: 10424-2 11/27/2019 Blood Pressure 1: 134/73 Code: 8480-6 Heart Rate 1: 116 bpm Respiratory Rate: 17 bpm SpO2: 97% Temperature: 36.7 (C) / 98.0 (F) We ight: 134 lbs Code: 62662-9 11/09/2019 Blood Pressure 1: 126/68 Code: 8480-6 Heart Rate 1: 92 bpm Respiratory Rate: 20 bpm SpO2: 97% Temperature: 37.2 (C) / 98.9 (F) We ight: 135 lbs Code: 98218-1 10/10/2019 Blood Pressure 1: 117/65 Code: 8480-6 Heart Rate 1: 66 bpm Respiratory Rate: 16 bpm SpO2: 99% Temperature: 36.7 (C) / 98.0 (F) We ight: 130 lbs Code: 02096-1 07/13/2019 Blood Pressure 1: 144/70 Code: 8480-6 BMI: 23.0 Code: 71639-8 Heart Rate 1: 92 bpm Height: 5'4" Code: 8302-2 Respiratory Rate: 20 bpm SpO2: 98% Temperature: 36.8 (C) / 98.2 (F) Weight: 133 lbs Code: 96463-7 05/18/2019 Blood Pressure 1: 122/60 Code: 8480-6 Heart Rate 1: 92 bpm Respiratory Rate: 20 bpm SpO2: 97% Temperature: 37.0 (C) / 98.6 (F) 05/17/2019 Blood Pressure 1: 122/74 Code: 8480-6 Heart Rate 1: 84 bpm Respiratory Rate: 20 bpm SpO2: 98% Temperature: 37.2 (C) / 99.0 (F) We ight: 130 lbs Code: 73309-3 04/24/2019 Blood Pressure 1: 124/64 Code: 8480-6 Heart Rate 1: 93 bpm SpO2: 99% Temperature: 36.8 (C) / 98.3 (F) Weight: 134 lbs Code: 52770-1 04/10/2019 Blood Pressure 1: 128/68 Code: 8480-6 Heart Rate 1: 73 bpm SpO2: 99% Temperature: 37.2 (C) / 98.9 (F) Weight: 134 lbs Code: 37899-1 02/16/2019 Blood Pressure 1: 128/64 Code: 8480-6 Heart Rate 1: 72 bpm Respiratory Rate: 20 bpm SpO2: 97% Temperature: 36.8 (C) / 98.2 (F) We ight: 129 lbs Code: 03127-1 12/20/2018 Blood Pressure 1: 152/70 Code: 8480-6 Heart Rate 1: 87 bpm Respiratory Rate: 20 bpm SpO2: 98% Temperature: 36.9 (C) / 98.5 (F) We ight: 127 lbs Code: 98177-0 12/14/2018 Blood Pressure 1: 122/68 Code: 8480-6 Heart Rate 1: 80 bpm Respiratory Rate: 18 bpm SpO2: 96% Temperature: 36.8 (C) / 98.2 (F) 12/12/2018 Blood Pressure 1: 140/68 Code: 8480-6 Heart Rate 1: 75 bpm Respiratory Rate: 18 bpm SpO2: 97% Temperature: 36.2 (C) / 97.1 (F) We ight: 127 lbs Code: 41306-4 10/19/2018 Blood Pressure 1: 126/64 Code: 8480-6 Heart Rate 1: 88 bpm Respiratory Rate: 20 bpm SpO2: 96% Temperature: 37.1 (C) / 98.8 (F) We ight: 123 lbs Code: 41365-0 10/13/2018 Blood Pressure 1: 132/62 Code: 8480-6 He art Rate 1: 86 bpm 10/05/2018 Blood Pressure 1: 114/58 Code: 8480-6 Heart Rate 1: 72 bpm SpO2: 98% Temperature: 36.9 (C) / 98.5 (F) Weight: 120 lbs Code: 43251-5 09/28/2018 Blood Pressure 1: 126/64 Code: 8480-6 Heart Rate 1: 76 bpm Respiratory Rate: 20 bpm SpO2: 97% Temperature: 37.2 (C) / 98.9 (F) 09/26/2018 Blood Pressure 1: 132/66 Code: 8480-6 Heart Rate 1: 79 bpm Respiratory Rate: 20 bpm SpO2: 97% Temperature: 37.1 (C) / 98.7 (F) We ight: 119 lbs Code: 45591-3 09/23/2018 Blood Pressure 1: 112/64 Code: 8480-6 Heart Rate 1: 85 bpm Respiratory Rate: 20 bpm SpO2: 95% Temperature: 36.9 (C) / 98.5 (F) We ight: 119 lbs 8 oz Code: 18058-8 09/22/2018 Blood Pressure 1: 116/58 Code: 8480-6 Heart Rate 1: 88 bpm Respiratory Rate: 20 bpm SpO2: 96% Temperature: 37.9 (C) / 100. 2 (F) 09/20/2018 Blood Pressure 1: 136/70 Code: 8480-6 Heart Rate 1: 109 bpm Respiratory Rate: 20 bpm SpO2: 98% Temperature: 37.0 (C) / 98.6 (F) We ight: 122 lbs Code: 52964-2 09/15/2018 Blood Pressure 1: 134/62 Code: 8480-6 Heart Rate 1: 68 bpm Respiratory Rate: 20 bpm SpO2: 97% Temperature: 36.8 (C) / 98.2 (F) We ight: 124 lbs Code: 45230-5 09/08/2018 Blood Pressure 1: 132/62 Code: 8480-6 Heart Rate 1: 83 bpm Respiratory Rate: 18 bpm SpO2: 94% Temperature: 36.9 (C) / 98.4 (F) We ight: 123 lbs Code: 53419-5 09/05/2018 Blood Pressure 1: 142/68 Code: 8480-6 Heart Rate 1: 70 bpm Respiratory Rate: 18 bpm SpO2: 98% Temperature: 37.0 (C) / 98.6 (F) We ight: 123 lbs Code: 01692-7 03/18/2018 Blood Pressure 1: 132/62 Code: 8480-6 Heart Rate 1: 71 bpm Respiratory Rate: 18 bpm SpO2: 95% Temperature: 36.7 (C) / 98.1 (F) We ight: 126 lbs Code: 74493-2 03/03/2018 Blood Pressure 1: 148/60 Code: 8480-6 BMI: 22.5 Code: 70612-9 Heart Rate 1: 72 bpm Height: 5'4" Code: 8302-2 Respiratory Rate: 20 bpm SpO2: 96% Temperature: 36.9 (C) / 98.4 (F) Weight: 130 lbs Code: 52154-8 02/16/2018 Blood Pressure 1: 154/70 Code: 8480-6 BMI: 21.8 Code: 49321-1 Heart Rate 1: 72 bpm Height: 5'4" Code: 8302-2 Respiratory Rate: 20 bpm SpO2: 97% Temperature: 36.9 (C) / 98.5 (F) Weight: 126 lbs Code: 83110-0 01/26/2018 Blood Pressure 1: 126/78 Code: 8480-6 BMI: 21.8 Code: 75166-1 Heart Rate 1: 80 bpm Height: 5'4" Code: 8302-2 Respiratory Rate: 20 bpm SpO2: 97% Temperature: 36.6 (C) / 97.8 (F) Weight: 126 lbs Code: 81385-0 11/30/2017 Blood Pressure 1: 168/78 Code: 8480-6 BMI: 22.1 Code: 57036-3 Heart Rate 1: 64 bpm Height: 5'4" Code: 8302-2 Respiratory Rate: 20 bpm SpO2: 96% Temperature: 37.0 (C) / 98.6 (F) Weight: 128 lbs Code: 84846-4 10/20/2017 Blood Pressure 1: 146/70 Code: 8480-6 BMI: 22.1 Code: 28220-7 Heart Rate 1: 72 bpm Height: 5'4" Code: 8302-2 Respiratory Rate: 20 bpm SpO2: 97% Temperature: 36.7 (C) / 98.1 (F) Weight: 128 lbs Code: 75223-6 08/30/2017 Blood Pressure 1: 134/68 Code: 8480-6 BMI: 22.5 Code: 88788-5 Heart Rate 1: 72 bpm Height: 5'4" Code: 8302-2 Respiratory Rate: 20 bpm Temperatu re: 36.9 (C) / 98.4 (F) Weight: 130 lbs Code: 83599-5 05/25/2017 Blood Pressure 1: 144/60 Code: 8480-6 BMI: 22.3 Code: 57232-9 Heart Rate 1: 64 bpm Height: 5'4" Code: 8302-2 Respiratory Rate: 20 bpm SpO2: 95% Temperature: 36.8 (C) / 98.2 (F) Weight: 129 lbs Code: 45802-3 03/22/2017 Blood Pressure 1: 124/70 Code: 8480-6 BMI: 21.4 Code: 72117-9 Heart Rate 1: 64 bpm Height: 5'4" Code: 8302-2 Respiratory Rate: 20 bpm Temperatu re: 36.9 (C) / 98.4 (F) Weight: 124 lbs Code: 32109-0 03/08/2017 Blood Pressure 1: 142/78 Code: 8480-6 He art Rate 1: 64 bpm 01/18/2017 Blood Pressure 1: 136/64 Code: 8480-6 BMI: 21.9 Code: 36166-9 Heart Rate 1: 68 bpm Height: 5'4" Code: 8302-2 Respiratory Rate: 20 bpm SpO2: 96% Temperature: 36.8 (C) / 98.2 (F) Weight: 127 lbs Code: 43234-2 01/11/2017 Blood Pressure 1: 142/60 Code: 8480-6 Heart Rate 1: 60 bpm SpO2: 96% 01/04/2017 Blood Pressure 1: 148/70 Code: 8480-6 He art Rate 1: 68 bpm 12/28/2016 Blood Pressure 1: 132/64 Code: 8480-6 BMI: 21.4 Code: 18586-3 Heart Rate 1: 68 bpm Height: 5'4" Code: 8302-2 SpO2: 98% Weight: 124 lb s Code: 01696-6 12/24/2016 Blood Pressure 1: 138/62 Code: 8480-6 He art Rate 1: 74 bpm 12/16/2016 Blood Pressure 1: 124/64 Code: 8480-6 BMI: 21.4 Code: 64535-7 Heart Rate 1: 66 bpm Height: 5'4" Code: 8302-2 Respiratory Rate: 20 bpm SpO2: 97% Temperature: 36.8 (C) / 98.2 (F) Weight: 124 lbs Code: 99446-0 11/18/2016 Blood Pressure 1: 156/64 Code: 8480-6 BMI: 22.3 Code: 61153-3 Heart Rate 1: 64 bpm Height: 5'4" Code: 8302-2 Respiratory Rate: 20 bpm SpO2: 98% Temperature: 36.6 (C) / 97.8 (F) Weight: 129 lbs Code: 40325-4 11/04/2016 Blood Pressure 1: 112/48 Code: 8480-6 BMI: 21.6 Code: 57223-4 Heart Rate 1: 70 bpm Height: 5'4" Code: 8302-2 Respiratory Rate: 22 bpm SpO2: 98% Temperature: 36.4 (C) / 97.6 (F) Weight: 125 lbs Code: 07047-3 10/27/2016 Blood Pressure 1: 118/54 Code: 8480-6 BMI: 21.8 Code: 91145-9 Heart Rate 1: 64 bpm Height: 5'4" Code: 8302-2 Respiratory Rate: 20 bpm SpO2: 97% Temperature: 36.9 (C) / 98.4 (F) Weight: 126 lbs Code: 97323-2 10/13/2016 Blood Pressure 1: 138/82 Code: 8480-6 Heart Rate 1: 66 bpm Height: Code: 8302-2 Respiratory Rate: 20 bpm SpO2: 97% Temperature: 36 .6 (C) / 97.9 (F) Weight: Code: 09922-9 10/08/2016 Blood Pressure 1: 124/56 Code: 8480-6 BMI: 22.8 Code: 91329-4 Heart Rate 1: 76 bpm Height: 5'4" Code: 8302-2 Respiratory Rate: 20 bpm SpO2: 96% Temperature: 36.8 (C) / 98.3 (F) Weight: 132 lbs Code: 01737-7 10/05/2016 Blood Pressure 1: 126/58 Code: 8480-6 BMI: 22.6 Code: 38006-0 Heart Rate 1: 60 bpm Height: 5'4" Code: 8302-2 Respiratory Rate: 20 bpm Temperatu re: 36.7 (C) / 98.1 (F) Weight: 131 lbs Code: 05589-5 08/25/2016 Blood Pressure 1: 130/64 Code: 8480-6 Heart Rate 1: 60 bpm Respiratory Rate: 20 bpm SpO2: 96% Temperature: 37.0 (C) / 98.6 (F) We ight: 136 lbs Code: 88126-2 07/28/2016 Blood Pressure 1: 104/78 Code: 8480-6 BMI: 23.5 Code: 53642-9 Heart Rate 1: 82 bpm Height: 5'4" Code: 8302-2 Respiratory Rate: 24 bpm SpO2: 98% Temperature: 36.8 (C) / 98.2 (F) Weight: 136 lbs Code: 91263-7 06/25/2016 Blood Pressure 1: 152/66 Code: 8480-6 He art Rate 1: 60 bpm 06/23/2016 Blood Pressure 1: 198/102 Code: 8480-6 Heart Rat e 1: 62 bpm Respiratory Rate: 20 bpm SpO2: 95% Temperature: 36.6 (C) / 97.9 (F) We ight: 137 lbs Code: 54760-7 06/03/2016 Blood Pressure 1: 154/86 Code: 8480-6 BMI: 23.4 Code: 53003-5 Heart Rate 1: 56 bpm Height: 5'6" Code: 8302-2 Respiratory Rate: 20 bpm SpO2: 96% Temperature: 36.7 (C) / 98.1 (F) Weight: 143 lbs Code: 00957-5 05/26/2016 Blood Pressure 1: 124/68 Code: 8480-6 BMI: 23.6 Code: 57219-4 Heart Rate 1: 76 bpm Height: 5'6" Code: 8302-2 Respiratory Rate: 20 bpm SpO2: 96% Temperature: 36.2 (C) / 97.2 (F) Weight: 144 lbs Code: 60865-5 05/20/2016 Blood Pressure 1: 156/58 Code: 8480-6 BMI: 24.5 Code: 35748-2 Heart Rate 1: 64 bpm Height: 5'4" Code: 8302-2 Respiratory Rate: 20 bpm Temperatu re: 36.9 (C) / 98.4 (F) Weight: 142 lbs Code: 32150-4 03/19/2016 Blood Pressure 1: 144/74 Code: 8480-6 BMI: 25.9 Code: 07616-6 Heart Rate 1: 76 bpm Height: 5'4" Code: 8302-2 Respiratory Rate: 20 bpm Temperatu re: 36.8 (C) / 98.2 (F) Weight: 150 lbs Code: 66571-6 01/13/2016 Blood Pressure 1: 152/72 Code: 8480-6 BMI: 26.8 Code: 33245-2 Heart Rate 1: 64 bpm Height: 5'4" Code: 8302-2 Respiratory Rate: 20 bpm Temperatu re: 36.7 (C) / 98.1 (F) Weight: 155 lbs Code: 64452-9 12/12/2015 Blood Pressure 1: 128/68 Code: 8480-6 BMI: 26.3 Code: 18476-6 Heart Rate 1: 64 bpm Height: 5'4" Code: 8302-2 Respiratory Rate: 20 bpm Temperatu re: 36.8 (C) / 98.3 (F) Weight: 152 lbs Code: 53138-8 12/05/2015 Blood Pressure 1: 174/88 Code: 8480-6 BMI: 26.8 Code: 67299-2 Heart Rate 1: 68 bpm Height: 5'4" Code: 8302-2 Respiratory Rate: 20 bpm Temperatu re: 36.8 (C) / 98.2 (F) Weight: 155 lbs Code: 70201-5 11/27/2015 Blood Pressure 1: 188/82 Code: 8480-6 art Rate 1: 70 bpm 10/21/2015 Blood Pressure 1: 148/80 Code: 8480-6 BMI: 27.5 Code: 66194-7 Heart Rate 1: 64 bpm Height: 5'4" Code: 8302-2 Respiratory Rate: 20 bpm Temperatu re: 36.7 (C) / 98.1 (F) Weight: 159 lbs Code: 43137-0 10/17/2015 Blood Pressure 1: 140/74 Code: 8480-6 BMI: 27.5 Code: 25160-5 Heart Rate 1: 80 bpm Height: 5'4" Code: 8302-2 Respiratory Rate: 20 bpm Temperatu re: 36.8 (C) / 98.2 (F) Weight: 159 lbs Code: 66035-2 10/07/2015 Blood Pressure 1: 174/80 Code: 8480-6 BMI: 27.5 Code: 83894-3 Heart Rate 1: 82 bpm Height: 5'4" Code: 8302-2 Respiratory Rate: 20 bpm SpO2: 97% Temperature: 36.7 (C) / 98.0 (F) Weight: 159 lbs Code: 94894-6 09/03/2015 Blood Pressure 1: 146/68 Code: 8480-6 BMI: 27.3 Code: 99899-4 Heart Rate 1: 82 bpm Height: 5'4" Code: 8302-2 Respiratory Rate: 20 bpm SpO2: 97% Temperature: 36.6 (C) / 97.9 (F) Weight: 158 lbs Code: 20429-1 08/01/2015 Blood Pressure 1: 144/78 Code: 8480-6 BMI: 26.9 Code: 28901-0 Heart Rate 1: 64 bpm Height: 5'3" Code: 8302-2 Respiratory Rate: 20 bpm Temperatu re: 36.6 (C) / 97.9 (F) Weight: 154 lbs Code: 51667-5 06/27/2015 Blood Pressure 1: 152/76 Code: 8480-6 BMI: 26.7 Code: 71112-9 Heart Rate 1: 80 bpm Height: 5'3" Code: 8302-2 Respiratory Rate: 20 bpm Temperatu re: 36.7 (C) / 98.1 (F) Weight: 153 lbs Code: 68349-7 Functional Status No Functional Status data Reason [...] having dif ficult time cutting sotalol in 12 due to size and shape. 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] Cony POOLE [facility] [address] [place] [address] CPT- 4: 67428 10/01/2022 ([id number]) OFFICE/OUTPATIENT VISIT EST Diagnosis: Cervicalgia[ICD10: M54.2] Diagnosis: Labile hypertension[ICD10: R09.89] Diagnosis: Paroxysmal atrial fibrillation[ICD10: I48.0] Diagnosis: Hypothyroidism, unspecified[ICD10: E03.9] Cony POOLE DO [address] [address] CPT- 4: 86489 08/25/2022 ([id number]) OFFICE/OUTPATIENT VISIT EST Diagnosis: Dyspnea on exertion[ICD10: R06.09] Diagnosis: Chronic atrial fibrillation[ICD10: I48.20] Diagnosis: Essential hypertension[ICD10: I10] Diagnosis: COPD (chronic obstructive pulmonary disease)[ICD10: J44.9] Cony POOLE DO [address] [address] CPT-4: 55519 08/11/2022 ([id number]) OFFICE/OUTPATIENT VISIT EST Diagnosis: Essential (primary) hypertension[ICD10: I10] Diagnosis: Edema[ICD10: R60.9] Diagnosis: Bradycardia[ICD10: R00.1] Diagnosis: Atrial fibrillation[ICD10: I48.91] Cony POOLE [address] [address] CPT-4: 97957 07/28/2022 ([id number]) OFFICE/OUTPATIENT VISIT EST Diagnosis: URI (upper respiratory infection)[ICD10: J06.9] Diagnosis: Chronic airway obstruction, not elsewhere classified[ICD10: J44.9] Cony POOLE DO [address] [address] CPT-4: 46303 07/14/2022 ([id number]) OFFICE/OUTPATIENT VISIT EST Diagnosis: Atrial fibrillation[ICD10: I48.91] Diagnosis: Essential (primary) hypertension[ICD10: I10] Diagnosis: Hypothyroidism[ICD10: E03.9] Cony POOLE [address] [address] CPT-4: 58058 06/23/2022 ([id number]) OFFICE/OUTPATIENT VISIT EST Diagnosis: Essential (primary) hypertension[ICD10: I10] Diagnosis: Chronic atrial fibrillation[ICD10: I48.20] Diagnosis: Chronic airway obstruction, not elsewhere classified[ICD10: J44.9] Diagnosis: Hypothyroidism[ICD10: E03.9] Cony POOLE DO [address] [address] CPT-4: 47795 05/25/2022 ([id number]) OFFICE/OUTPATIENT VISIT EST Diagnosis: COPD (chronic obstructive pulmonary disease)[ICD10: J44.9] Diagnosis: Essential hypertension[ICD10: I10] Diagnosis: Hypothyroidism[ICD10: E03.9] Diagnosis: Allergic rhinitis[ICD10: J30.9] Diagnosis: Unsteady gait[ICD10: R26.81] Cony POOLE DO [address] [address] CPT-4: 37874 03/19/2022 ([id number]) OFFICE/OUTPATIENT VISIT EST Diagnosis: COPD exacerbation[ICD10: J44.1] Diagnosis: COPD (chronic obstructive pulmonary disease)[ICD10: J44.9] Cony POOLE DO [address] [address] CPT-4: 29609 02/16/2022 ([id number]) OFFICE/OUTPATIENT VISIT EST Diagnosis: COPD exacerbation[ICD10: J44.1] Cony POOLE DO [address] [address] CPT-4: 53721 2022 ([id number]) OFFICE/OUTPATIENT VISIT EST Diagnosis: Contact with and (suspected) exposure to other viral communicable diseases[ICD10: Z20.828] Diagnosis: COPD with acute lower respiratory infection[ICD10: J44.0] Keeley Johnson CONY POOLE DO [address] [address] CPT-4: 00223 01/27/2022 ([id number]) OFFICE/OUTPATIENT VISIT EST Diagnosis: Essential (primary) hypertension[ICD10: I10] Diagnosis: Hypothyroidism, unspecified[ICD10: E03.9] Diagnosis: Chronic obstructive pulmonary disease, unspecified[ICD10: J44.9] Cony STEVENSLINE Jeanine POOLE [facility] [address] [place] [phone] CPT-4: 10921 10/28/2021 ([id number]) OFFICE/OUTPATIENT VISIT EST Diagnosis: Essential (primary) hypertension[ICD10: I10] Diagnosis: Atrial fibrillation[ICD10: I48.91] Diagnosis: Edema[ICD10: R60.9] Diagnosis: Mixed hyperlipidemia[ICD10: E78.2] Diagnosis: Hypothyroidism[ICD10: E03.9] Diagnosis: Dyspnea[ICD10: R06.00] Diagnosis: Allergic rhinitis, unspecified[ICD10: J30.9] Cony Bowmanlea CONY AbigailMelina NGOC [facility] [address] [place] [address] CPT- 4: 90610 09/23/2021 ([id number]) OFFICE/OUTPATIENT VISIT EST Diagnosis: Essential (primary) hypertension[ICD10: I10] Diagnosis: Edema[ICD10: R60.9] Diagnosis: Stasis dermatitis[ICD10: I87.2] Diagnosis: Dyspnea[ICD10: R06.00] Cony AVERY AbigailMelina LISA Deion DO [address] [address] CPT-4: 71370 08/21/2021 ([id number]) OFFICE/OUTPATIENT VISIT EST Diagnosis: Essential (primary) hypertension[ICD10: I10] Diagnosis: Atrial fibrillation[ICD10: I48.91] Diagnosis: Edema[ICD10: R60.9] Conyjeannette Bowmanlea HOWELLCONY AbigailMelina NGOC [facility] [address] [place] [phone] CPT-4: 36021 07/30/19 ([id number]) OFFICE/OUTPATIENT VISIT EST Diagnosis: Essential hypertension[ICD10: I10] Diagnosis: 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] Diagnosis: Reactive airway disease[ICD10: J45.909] Diagnosis: Sciatica[ICD10: M54.30] Cony AVERY AbigailMelina MIGUEL A GLORIA [address] [address] CPT-4: 69355 06/19/2021 ([id number]) NURSE/OUTPATIENT VISIT EST Diagnosis: Urinary tract infection[ICD10: N39.0] Cony POOLE DO [address] [address] CPT-4: 22729 05/12/2021 ([id number]) OFFICE/OUTPATIENT VISIT EST Diagnosis: Edema leg[ICD10: R60.0] Diagnosis: Recurrent UTI[ICD10: N39.0] 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] Cony POOLE DO [address] [address] CPT-4: 58772 05/08/2021 ([id number]) OFFICE/OUTPATIENT VISIT EST Diagnosis: Cervical radiculopathy[ICD10: M54.12] Diagnosis: 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] Cony POOLE DO [address] [address] CPT- 4: 15873 04/28/2021 ([id number]) OFFICE/OUTPATIENT VISIT EST Diagnosis: Other fatigue[ICD10: R53.83] Diagnosis: Hypothyroidism[ICD10: E03.9] Diagnosis: Vitamin B12 deficiency anemia, unspecified[ICD10: D51.9] Keeley Johnson CONY POOLE [address] [address] CPT-4: 27355 03/19/2021 ([id number]) NURSE/OUTPATIENT VISIT EST Diagnosis: Encounter for immunization[ICD10: Z23] Cony Colbylea QUINCY POOLE [address] [address] CPT-4: 29488 02/27/2021 ([id number]) OFFICE/OUTPATIENT VISIT EST Diagnosis: Atrial fibrillation[ICD10: I48.91] Diagnosis: Essential (primary) hypertension[ICD10: I10] Diagnosis: Hypothyroidism[ICD10: E03.9] Diagnosis: Lymphadenopathy of right cervical region[ICD10: R59.0] Diagnosis: Osteopenia[ICD10: M85.80] Cony WAY [address] [address] CPT-4: 78533 02/06/2021 ([id number]) OFFICE/OUTPATIENT VISIT EST Diagnosis: Skin lesion of right leg[ICD10: L98.9] Keeley BOWMANNDER DO [address] [address] CPT-4: 32027 12/20/2020 ([id number]) OFFICE/OUTPATIENT VISIT EST Diagnosis: Nontraumatic blister of skin[ICD10: R23.8] Keeley GRADYER [address] [address] CPT- 4: 06686 12/11/2020 ([id number]) OFFICE/OUTPATIENT VISIT EST Diagnosis: Nocturia[ICD10: R35.1] Diagnosis: Essential hypertension[ICD10: I10] Cony BOWMANNDER DO [address] [address] CPT-4: 52721 11/11/2020 ([id number]) OFFICE/OUTPATIENT VISIT EST Diagnosis: Essential hypertension[ICD10: I10] Diagnosis: Paroxysmal atrial fibrillation[ICD10: I48.0] Diagnosis: Hypothyroidism[ICD10: E03.9] Cony POOLE DO [address] [address] CPT-4: 40283 07/29/2020 ([id number]) OFFICE/OUTPATIENT VISIT EST Diagnosis: Dizziness and giddiness[ICD10: R42] Diagnosis: Essential hypertension[ICD10: I10] Cony Poole ANISH DEVIN BOWMANNDER DO [address] [address] CPT-4: 31498 06/24/2020 ([id number]) OFFICE/OUTPATIENT VISIT EST Diagnosis: Weakness[ICD10: R53.1] Apoorva BOWMANNDGLORIA DO [address] [place] [address] CPT-4: 22936 06/21/19 ([id number]) OFFICE/OUTPATIENT VISIT EST Diagnosis: URI (upper respiratory infection)[ICD10: J06.9] [facility] [address] [place] [address] CPT-4: 19477 03/19/2020 ([id number]) OFFICE/OUTPATIENT VISIT EST Diagnosis: Essential (primary) hypertension[ICD10: I10] Diagnosis: Atrial fibrillation status post cardioversion[ICD10: I48.91] Diagnosis: Right upper lobe pulmonary nodule[ICD10: R91.1] Cony Solorzano ORENDER DO [facility] [address] [place] [address] CPT- 4: 62109 02/29/2020 ([id number]) OFFICE/OUTPATIENT VISIT EST Diagnosis: Stasis dermatitis[ICD10: I87.2] Apoorva BOWMANNDER DO [facility] [address] [place] [address] CPT-4: 69845 02/22/2020 ([id number]) NURSE/OUTPATIENT VISIT EST Diagnosis: Urinary tract infection, site not specified[ICD10: N39.0] Cony Solorzano ORENDER DO [facility] [address] [place] [address] CPT-4: 48845 02/20/2020 ([id number]) OFFICE/OUTPATIENT VISIT EST Diagnosis: Urinary tract infection[ICD10: N39.0] Apoorva BOWMANNDER DO [facility] [address] [place] [phone] CPT-4: 99616 02/13/2020 ([id number]) OFFICE/OUTPATIENT VISIT EST Diagnosis: Neck pain[ICD10: M54.2] Diagnosis: Muscle spasm[ICD10: M62.838] Cony Solorzano ORENDER DO [facility] [address] [place] [phone] CPT-4: 69273 2020 ([id number]) OFFICE/OUTPATIENT VISIT EST Diagnosis: Atrial fibrillation[ICD10: I48.91] Diagnosis: Essential hypertension[ICD10: I10] Diagnosis: Right wrist pain[ICD10: M25.531] Cony Solorzano ORENDER DO [facility] [address] [place] [phone] CPT-4: 30951 01/22/2020 ([id number]) OFFICE/OUTPATIENT VISIT EST Diagnosis: Paroxysmal atrial fibrillation[ICD10: I48.0] Diagnosis: Essential hypertension[ICD10: I10] Cony BELTRAN SMelina ORENDER DO [facility] [address] [place] [phone] CPT-4: 89776 12/26/2019 ([id number]) OFFICE/OUTPATIENT VISIT EST Diagnosis: Lung nodule[ICD10: R91.1] Diagnosis: CHF (congestive heart failure)[ICD10: I50.9] Diagnosis: Atrial fibrillation[ICD10: I48.91] Apoorva Rueda ANISH BELTRAN S. ORENDER DO [facility] [address] [place] [phone] CPT-4: 91204 11/27/2019 ([id number]) OFFICE/OUTPATIENT VISIT EST Diagnosis: Urinary tract infection[ICD10: N39.0] Diagnosis: Hypotension[ICD10: I95.9] Cony Solorzano ORE NDER DO [facility] [address] [place] [phone] CPT-4: 70312 11/09/2019 ([id number]) OFFICE/OUTPATIENT VISIT EST Diagnosis: Left leg swelling[ICD10: M79.89] Cony Solorzano ORENDER DO [facility] [address] [place] [phone] CPT-4: 50792 10/10/2019 ([id number]) OFFICE/OUTPATIENT VISIT EST Diagnosis: Muscle spasm[ICD10: M62.838] Cony AVERY SMelina ORENDER DO [facility] [address] [place] [phone] CPT-4: 58165 08/25/2019 ([id number]) OFFICE/OUTPATIENT VISIT EST Diagnosis: Low back pain[ICD10: M54.5] Diagnosis: Sciatica of left side[ICD10: M54.32] Cony BOWMANNDGLORIA DO [address] [phone] CPT-4: 55316 07/13/2019 ([id number]) OFFICE/OUTPATIENT VISIT EST Diagnosis: Pneumonia due to infectious organism[ICD10: J18.9] Cony GRADYER DO [address] [phone] CPT- 4: 32265 05/18/2019 ([id number]) OFFICE/OUTPATIENT VISIT EST Diagnosis: Pneumonia due to infectious organism[ICD10: J18.9] Cony BOWMANNDGLORIA DO [address] [address] CPT- 4: 60884 05/17/2019 ([id number]) NURSE/OUTPATIENT VISIT EST Diagnosis: Urinary tract infection[ICD10: N39.0] Cony GRADYER DO [address] [address] CPT-4: 69966 05/08/2019 ([id number]) NURSE/OUTPATIENT VISIT EST Diagnosis: Acute pharyngitis[ICD10: J02.9] Diagnosis: Altered taste[ICD10: R43.2] Cony Hayes. O RENDER DO [address] [address] CPT-4: 67878 05/08/2019 ([id number]) OFFICE/OUTPATIENT VISIT EST Diagnosis: Urinary tract infection, site not specified[ICD10: N39.0] Diagnosis: Stomatitis and mucositis with change of taste[ICD10: K12.1] Cony BOWMANNDER DO [address] [address] CPT-4: 44899 04/24/2019 ([id number]) NURSE/OUTPATIENT VISIT EST Diagnosis: Hematuria[ICD10: R31.9] Cony CASTRO DO [address] [address] CPT-4: 37595 04/21/2019 ([id number]) OFFICE/OUTPATIENT VISIT EST Diagnosis: Oral mucositis (ulcerative), unspecified[ICD10: K12.30] Diagnosis: Stomatitis and mucositis with change of taste[ICD10: K12.1] Cony POOLE DO [address] [address] CPT-4: 01657 04/10/2019 ([id number]) NURSE/OUTPATIENT VISIT EST Diagnosis: FLU VACCINE[ICD10: Z23] Cony CASTRO DO [address] [address] CPT-4: 14446 03/02/2019 ([id number]) OFFICE/OUTPATIENT VISIT EST Diagnosis: Essential (primary) hypertension[ICD10: I10] Diagnosis: Other fatigue[ICD10: R53.83] Diagnosis: Hypothyroidism, unspecified[ICD10: E03.9] Diagnosis: Nocturia[ICD10: R35.1] Cony Albarran DO [address] [address] CPT-4: 21470 02/16/2019 ([id number]) NURSE/OUTPATIENT VISIT EST Diagnosis: Essential (primary) hypertension[ICD10: I10] Cony POOLE DO [address] [address] CPT- 4: 63233 01/24/2019 ([id number]) OFFICE/OUTPATIENT VISIT EST Diagnosis: Acute upper respiratory infection, unspecified[ICD10: J06.9] Apoorva POOLE DO [address] [address] CPT-4: 30233 12/20/2018 ([id number]) OFFICE/OUTPATIENT VISIT EST Diagnosis: Paroxysmal atrial fibrillation[ICD10: I48.0] Diagnosis: Other fatigue[ICD10: R53.83] Diagnosis: Essential (primary) hypertension[ICD10: I10] Diagnosis: Hypothyroidism, unspecified[ICD10: E03.9] Cony POOLE [address] [address] CPT- 4: 10946 12/12/2018 ([id number]) OFFICE/OUTPATIENT VISIT EST Diagnosis: Essential (primary) hypertension[ICD10: I10] Diagnosis: Allergic rhinitis due to pollen[ICD10: J30.1] Cony POOLE DO [address] [address] CPT- 4: 56271 10/19/2018 ([id number]) OFFICE/OUTPATIENT VISIT EST Diagnosis: Allergic rhinitis due to pollen[ICD10: J30.1] Diagnosis: Essential (primary) hypertension[ICD10: I10] Cony POOLE [address] [address] CPT- 4: 68749 10/05/2018 ([id number]) OFFICE/OUTPATIENT VISIT EST Diagnosis: Allergic rhinitis due to pollen[ICD10: J30.1] Diagnosis: Other fatigue[ICD10: R53.83] Diagnosis: Hematuria, unspecified[ICD10: R31.9] Cony POOLE [address] [address] CPT-4: 45608 09/28/2018 ([id number]) OFFICE/OUTPATIENT VISIT EST Diagnosis: Allergic rhinitis due to pollen[ICD10: J30.1] Diagnosis: Cough[ICD10: R05] Diagnosis: Dermatitis, unspecified[ICD10: L30.9] Diagnosis: Slow transit constipation[ICD10: K59.01] Cony POOLE [address] [address] CPT- 4: 28561 09/26/2018 ([id number]) OFFICE/OUTPATIENT VISIT EST Diagnosis: Acute bronchitis, unspecified[ICD10: J20.9] Diagnosis: Other specified respiratory disorders[ICD10: J98.8] Merry POOLE DO [address] [address] CPT- 4: 72664 09/23/2018 ([id number]) OFFICE/OUTPATIENT VISIT EST Diagnosis: Acute bronchitis, unspecified[ICD10: J20.9] Diagnosis: Fever, unspecified[ICD10: R50.9] Coyn POOLE DO [address] [address] CPT-4: 46956 09/22/2018 ([id number]) OFFICE/OUTPATIENT VISIT EST Diagnosis: Tachycardia, unspecified[ICD10: R00.0] Diagnosis: Dysuria[ICD10: R30.0] Diagnosis: Personal history of urinary (tract) infections[ICD10: Z87.440] Merry POOLE DO [address] [address] CPT-4: 82177 09/20/2018 ([id number]) OFFICE/OUTPATIENT VISIT EST Diagnosis: Other fatigue[ICD10: R53.83] Diagnosis: Hypothyroidism, unspecified[ICD10: E03.9] Cony POOLE DO [address] [address] CPT- 4: 60071 09/15/2018 ([id number]) NURSE/OUTPATIENT VISIT EST Diagnosis: Urinary tract infection, site not specified[ICD10: N39.0] Cony POOLE DO [address] [address] CPT-4: 82185 09/14/2018 ([id number]) OFFICE/OUTPATIENT VISIT EST Diagnosis: Chronic fatigue, unspecified[ICD10: R53.82] Diagnosis: Essential (primary) hypertension[ICD10: I10] Diagnosis: Hypothyroidism, unspecified[ICD10: E03.9] Diagnosis: Paroxysmal atrial fibrillation[ICD10: I48.0] Cony POOLE DO [address] [address] CPT- 4: 51623 09/08/2018 ([id number]) OFFICE/OUTPATIENT VISIT EST Diagnosis: Dysuria[ICD10: R30.0] Diagnosis: Personal history of urinary (tract) infections[ICD10: Z87.440] Merry POOLE DO [address] [address] CPT-4: 22594 09/05/2018 ([id number]) NURSE/OUTPATIENT VISIT EST Diagnosis: Essential (primary) hypertension[ICD10: I10] Diagnosis: Edema, unspecified[ICD10: R60.9] Cony POOLE DO [address] [address] CPT-4: 71618 04/20/2018 ([id number]) OFFICE/OUTPATIENT VISIT EST Diagnosis: FLU VACCINE[ICD10: Z23] Diagnosis: Hypothyroidism, unspecified[ICD10: E03.9] Diagnosis: Essential (primary) hypertension[ICD10: I10] Diagnosis: Localized edema[ICD10: R60.0] Cony POOLE DO [address] [address] CPT-4: 94109 03/03/2018 ([id number]) OFFICE/OUTPATIENT VISIT EST Diagnosis: Atopic dermatitis, unspecified[ICD10: L20.9] Apoorva POOLE DO [address] [address] CPT- 4: 26149 02/16/2018 ([id number]) OFFICE/OUTPATIENT VISIT EST Diagnosis: Pressure ulcer of right heel, stage 1[ICD10: L89.611] Diagnosis: Other fatigue[ICD10: R53.83] Apoorva POOLE DO [address] [address] CPT-4: 91613 01/26/2018 OFFICE/OUTPATIENT VISIT EST Diagnosis: Hypothyroidism, unspecified[ICD10: E03.9] Diagnosis: Essential (primary) hypertension[ICD10: I10] Diagnosis: Localized edema[ICD10: R60.0] Diagnosis: Other fatigue[ICD10: R53.83] Cony POOLE DO [address] [address] CPT-4: 00973 11/30/2017 ([id number]) OFFICE/OUTPATIENT VISIT EST Diagnosis: Other seborrheic keratosis[ICD10: L82.1] Cony POOLE DO [address] [address] CPT- 4: 42401 11/04/2017 ([id number]) OFFICE/OUTPATIENT VISIT EST Diagnosis: Achilles tendinitis, right leg[ICD10: M76.61] Apoorva POOLE DO [address] [address] CPT- 4: 60381 10/20/2017 ([id number]) OFFICE/OUTPATIENT VISIT EST Diagnosis: Essential (primary) hypertension[ICD10: I10] Diagnosis: Hypothyroidism, unspecified[ICD10: E03.9] Diagnosis: Weakness[ICD10: R53.1] Cony Albarran DO [address] [address] CPT-4: 06444 08/30/2017 ([id number]) OFFICE/OUTPATIENT VISIT EST Diagnosis: Hypothyroidism, unspecified[ICD10: E03.9] Diagnosis: Essential (primary) hypertension[ICD10: I10] Diagnosis: Paroxysmal atrial fibrillation[ICD10: I48.0] Cony POOLE [address] [address] CPT- 4: 45526 05/25/2017 ([id number]) OFFICE/OUTPATIENT VISIT EST Diagnosis: Essential (primary) hypertension[ICD10: I10] Diagnosis: Hypothyroidism, unspecified[ICD10: E03.9] Cony POOLE DO [address] [address] CPT- 4: 92872 03/22/2017 ([id number]) OFFICE/OUTPATIENT VISIT EST Diagnosis: FLU VACCINE[ICD10: Z23] Cony CASTRO DO [address] [address] CPT-4: 91475 03/08/2017 ([id number]) OFFICE/OUTPATIENT VISIT EST Diagnosis: Essential (primary) hypertension[ICD10: I10] Diagnosis: Hypothyroidism, unspecified[ICD10: E03.9] Cony POOLE DO [address] [address] CPT- 4: 12534 01/18/2017 ([id number]) OFFICE/OUTPATIENT VISIT EST Diagnosis: Essential (primary) hypertension[ICD10: I10] Diagnosis: Localized edema[ICD10: R60.0] Diagnosis: Hypotension, unspecified[ICD10: I95.9] Cony POOLE DO [address] [address] CPT-4: 62323 12/16/2016 ([id number]) OFFICE/OUTPATIENT VISIT EST Diagnosis: Hypothyroidism, unspecified[ICD10: E03.9] Diagnosis: Essential (primary) hypertension[ICD10: I10] Cony POOLE DO [address] [address] CPT- 4: 93981 11/18/2016 ([id number]) OFFICE/OUTPATIENT VISIT EST Diagnosis: Hypotension due to drugs[ICD10: I95.2] Diagnosis: Lymphangitis[ICD10: I89.1] Diagnosis: Hypothyroidism, unspecified[ICD10: E03.9] Cony POOLE DO [address] [address] CPT- 4: 74775 11/04/2016 ([id number]) OFFICE/OUTPATIENT VISIT EST Diagnosis: Hypotension due to drugs[ICD10: I95.2] Diagnosis: Other fatigue[ICD10: R53.83] Cony POOLE DO [address] [address] CPT-4: 53269 10/27/2016 ([id number]) OFFICE/OUTPATIENT VISIT EST Diagnosis: Other symptoms and signs involving the genitourinary system[ICD10: R39.89] Cony POOLE [address] [address] CPT-4: 46244 10/26/2016 OFFICE/OUTPATIENT VISIT EST Diagnosis: Venous insufficiency (chronic) (peripheral)[ICD10: I87.2] Diagnosis: Lymphangitis[ICD10: I89.1] Diagnosis: Cellulitis of left lower limb[ICD10: L03.116] Cony POOLE [address] [address] CPT- 4: 88208 10/13/2016 OFFICE/OUTPATIENT VISIT EST Diagnosis: Cellulitis of left lower limb[ICD10: L03.116] Diagnosis: Lymphangitis[ICD10: I89.1] Cony MOCTEZUMA [address] [address] CPT-4: 41443 10/08/2016 ([id number]) OFFICE/OUTPATIENT VISIT EST Diagnosis: Hypothyroidism, unspecified[ICD10: E03.9] Diagnosis: Essential (primary) hypertension[ICD10: I10] Diagnosis: Other fatigue[ICD10: R53.83] Diagnosis: Cellulitis of left lower limb[ICD10: L03.116] Cony POOLE [address] [address] CPT- 4: 54361 10/05/2016 ([id number]) OFFICE/OUTPATIENT VISIT EST Diagnosis: Essential (primary) hypertension[ICD10: I10] Diagnosis: Localized edema[ICD10: R60.0] Diagnosis: Other fatigue[ICD10: R53.83] Cony POOLE [address] [address] CPT-4: 85256 08/25/2016 ([id number]) OFFICE/OUTPATIENT VISIT EST Diagnosis: Essential (primary) hypertension[ICD10: I10] Diagnosis: Hypothyroidism, unspecified[ICD10: E03.9] Diagnosis: Weakness[ICD10: R53.1] Cony Albarran [address] [address] CPT-4: 21654 07/28/2016 ([id number]) OFFICE/OUTPATIENT VISIT EST Diagnosis: Essential (primary) hypertension[ICD10: I10] Merle POOLE [address] [address] CPT- 4: 93901 06/23/2016 ([id number]) OFFICE/OUTPATIENT VISIT EST Diagnosis: Cough[ICD10: R05] Diagnosis: Essential (primary) hypertension[ICD10: I10] Merle POOLE [address] [address] CPT- 4: 83107 06/03/2016 ([id number]) OFFICE/OUTPATIENT VISIT EST Diagnosis: Acute upper respiratory infection, unspecified[ICD10: J06.9] Diagnosis: Fever, unspecified[ICD10: R50.9] Merle POOLE [address] [address] CPT-4: 77551 05/26/2016 ([id number]) OFFICE/OUTPATIENT VISIT EST Diagnosis: Essential (primary) hypertension[ICD10: I10] Diagnosis: Paroxysmal atrial fibrillation[ICD10: I48.0] Diagnosis: Venous insufficiency (chronic) (peripheral)[ICD10: I87.2] Diagnosis: Primary insomnia[ICD10: F51.01] Diagnosis: Hypothyroidism, unspecified[ICD10: E03.9] Cony STEVENSLINE Jeanine POOLE [address] [address] CPT- 4: 25002 05/20/2016 ([id number]) OFFICE/OUTPATIENT VISIT EST Diagnosis: Pain in right ankle and joints of right foot[ICD10: M25.571] Diagnosis: Venous insufficiency (chronic) (peripheral)[ICD10: I87.2] Diagnosis: FLU VACCINE[ICD10: Z23] Cony STEVENSLINE Jeanine CASTRO [address] [address] CPT-4: 90919 03/19/2016 ([id number]) OFFICE/OUTPATIENT VISIT EST Diagnosis: Essential (primary) hypertension[ICD10: I10] Diagnosis: Localized edema[ICD10: R60.0] Diagnosis: Paroxysmal atrial fibrillation[ICD10: I48.0] Diagnosis: PNEUMOCOCCAL VACCINE[ICD10: Z23] Cony POOLE [address] [address] CPT-4: 80974 01/13/2016 ([id number]) OFFICE/OUTPATIENT VISIT EST Diagnosis: Hypo-osmolality and hyponatremia[ICD10: E87.1] Diagnosis: Essential (primary) hypertension[ICD10: I10] Diagnosis: Paroxysmal atrial fibrillation[ICD10: I48.0] Cony POOLE [address] [address] CPT- 4: 71789 12/12/2015 ([id number]) OFFICE/OUTPATIENT VISIT EST Diagnosis: Essential (primary) hypertension[ICD10: I10] Diagnosis: Edema, unspecified[ICD10: R60.9] Diagnosis: Hypo-osmolality and hyponatremia[ICD10: E87.1] Cony POOLE [address] [address] CPT- 4: 77027 12/05/2015 ([id number]) OFFICE/OUTPATIENT VISIT EST Diagnosis: Hypo-osmolality and hyponatremia[ICD10: E87.1] Diagnosis: Hematuria, unspecified[ICD10: R31.9] Cony POOLE [address] [address] CPT-4: 74042 11/27/2015 ([id number]) OFFICE/OUTPATIENT VISIT EST Diagnosis: Essential (primary) hypertension[ICD10: I10] Diagnosis: Edema, unspecified[ICD10: R60.9] Diagnosis: Dizziness and giddiness[ICD10: R42] Merle RAMON PETROS POOLE [address] [address] CPT-4: 99620 10/21/2015 ([id number]) OFFICE/OUTPATIENT VISIT EST Diagnosis: Essential (primary) hypertension[ICD10: I10] Diagnosis: Localized edema[ICD10: R60.0] Diagnosis: Paroxysmal atrial fibrillation[ICD10: I48.0] Cony POOLE [address] [address] CPT- 4: 76830 10/17/2015 ([id number]) OFFICE/OUTPATIENT VISIT EST Diagnosis: Essential (primary) hypertension[ICD10: I10] Diagnosis: Tachycardia, unspecified[ICD10: R00.0] Diagnosis: Hypothyroidism, unspecified[ICD10: E03.9] Diagnosis: Palpitations[ICD10: R00.2] Merle MOCTEZUMA [address] [address] CPT-4: 46585 10/07/2015 ([id number]) OFFICE/OUTPATIENT VISIT EST Diagnosis: Acute upper respiratory infection, unspecified[ICD10: J06.9] Merle POOLE [address] [address] CPT-4: 03742 09/03/2015 ([id number]) OFFICE/OUTPATIENT VISIT EST Diagnosis: Essential (primary) hypertension[ICD10: I10] Cony POOLE [address] [address] CPT- 4: 35091 08/01/2015 OFFICE/OUTPATIENT VISIT NEW Diagnosis: Essential (primary) hypertension[ICD10: I10] Diagnosis: Hypothyroidism, unspecified[ICD10: E03.9] Diagnosis: Family history of malignant neoplasm of breast[ICD10: Z80.3] Cony POOLE [address] [address] CPT-4: 90552 06/27/2015 Plan of Care Planned Activity Notes Codes Status Date Visit Diagnosis Plan: Stress and adjustment reaction D iscussion: Trial of effexor XR 37.5mg po q HS Fwup 1month ICD-9 : 309.89 ICD-10 : F43.29 10/01/2022 Appointment: Cony Poole WPtel: [phone] [phone] ACUTE ILLNESS 10/01/2022 Visit Diagnosis Plan: Hypothyroidism, [...] : R09.89 08/25/2022 Appointment: Cony Poole WPtel: [phone] [phone] FOLLOW UP 08/25/2022 Care Plan: X-RAY EXAM NECK SPINE 4/5VWS LOINC : 15849-9 Pending 08/25/2022 Visit Diagnosis Plan: Chronic atrial [...] : J44.9 08/11/2022 Appointment: Cony Poole WPtel: [facility] [place] [facility] [place] [phone] FOLLOW UP 08/11/2022 Appointment: Cony Poole WPtel: [address] [place], [place] [phone] RESCHEDULED 08/11/2022 Visit Diagnosis Plan: Edema Discussion: [...] : R00.1 07/28/2022 Appointment: Cony Poole WPtel: [address] [place], [place] [phone] FOLLOW UP 07/28/2022 Patient Education: hydralazine- [employer] Coupon [id number] Completed 07/28/2022 Patient Education: losartan- [employer] Coupon [id number] Completed 07/28/2022 Visit Diagnosis Plan: URI (upper respiratory infection ) Discussion: Influenza A and B and Covid negative Z-pack Continue budesonide and perforomist and add albuterol at least TID Notify if worsening ICD-9 : 465.9 ICD-10 : J06.9 07/14/2022 Appointment: Cony Poole WPtel: [facility] [place] [facility] [place] [phone] ACUTE ILLNESS 07/14/2022 Visit Diagnosis Plan: Hypothyroidism [...] I10 06/23/2022 Appointment: Cony Poole WPtel: [phone] [phone] [place] FOLLOW UP 06/23/2022 Visit Diagnosis Plan: Hypothyroidism [...] : I10 05/25/2022 Appointment: Cony Poole WPtel: [facility] [place] [facility] [place] [phone] [facility] 05/25/2022 Patient Education: losartan- [employer] Coupon [id number] [email or web address] Completed 05/25/2022 Visit Diagnosis Plan: Essential hypertension [...] E03.9 03/19/2022 Appointment: Cony Poole WPtel: [phone] [phone] [place] FOLLOW UP 03/19/2022 Visit Diagnosis Plan: COPD exacerbation Discussion: Co ntinue budesonide/performomist and use albuterol prn as rescue Go for COVID booster Flu shot in March Fwup 1month ICD-9 : 491.21 ICD-10 : J44.1 02/16/2022 Appointment: Con[facility] Poole [facility]Ptel[facility] [phone] [phone] [place] FOLLOW UP 02/16/2022 Visit Diagnosis Plan: COPD exacerbation Discussion: Co ntinue breztri 2p BID and albuterol prn Will switch to Nebulizer with Budesonide 0.5mg BID and Perforomist 20mcg BID with duoneb q4hrs prn Fwup 2 weeks unless worsening ICD-9 : 491.21 ICD-10 : J44.1 2022 Appointment: Con[facility] Poole WPtel: [phone] [phone] [place] FOLLOW UP 2022 Visit Diagnosis Plan: [...] 01/27/2022 Appointment: Keeley Johnson WPtel: [phone] [phone] ACUTE ILLNESS 01/27/2022 Patient Education: Patient Medication Summary Completed 01/27/2022 Referral: Soy Rodriguez W[place]el: [facility] [address] [id number] [place] 09/30 - lm for office Completed 10/29/2021 Visit Diagnosis Plan: [...] : E03.9 10/28/2021 Appointment: Cony Poole WPtel: [phone] [phone] FOLLOW UP 10/28/2021 Visit Diagnosis Plan: Edema [...] R06.00 09/23/2021 Appointment: Cony Poole WPtel: [phone] [phone] [place] FOLLOW UP 09/23/2021 Appointment: Cony Poole WPtel: [phone] [phone] [place] CANCELED 09/08/2021 Visit Diagnosis Plan: Essential [...] I87.2 08/21/2021 Appointment: Cony Poole WPtel: [phone] [phone] [place] FOLLOW UP 08/21/2021 Appointment: Keeley Johnson WPtel: [phone] [phone] [place] CANCELED 08/12/2021 Visit Diagnosis Plan: Essential (primary) hypertension Discussion: Stable ICD-9 : 401.9 ICD-10 : I10 07/30/2021 Visit Diagnosis Plan: Atrial fibrillation Discussion: On cardizem and eliquis and rate controlled and asympotomatic Sees Dr Lopez in 2 weeks ICD-9 : 427.31 ICD-10 : I48.91 07/30/2021 Appointment: Cony Poole WPtel: [address] [place], [place] [phone] FOLLOW UP 07/30/2021 Appointment: Cony Poole WPtel: [address] [place], [place] [phone] [place] due to weather CANCELED 07/24/2021 Visit Diagnosis [...] : J45.909 06/19/2021 Appointment: Cony Poole WPtel: [address] [place], [place] [phone] FOLLOW UP 06/19/2021 Appointment: Cony Poole WPtel: [address] [place], [place] [phone] [place] seen 05/08/21 at 1 pm by doctor as appt opened up CANCELED 05/14/2021 Appointment: Cony Poole WPtel: [address] [place], [place] [phone] UA 05/12/2021 Visit Diagnosis Plan: Recurrent UTI [...] : R60.0 05/08/2021 Appointment: Cony Poole WPtel: [phone] [phone] ACUTE ILLNESS 05/08/2021 Visit Diagnosis Plan: Cervical radiculopathy Discussio n: Start PT ICD-9 : 723.4 ICD-10 : M54.12 04/28/2021 Visit Diagnosis Plan: Stress and adjustment reaction D iscussion: Stress Reducers Discussed Discussion: Stress Reducers Discussed meds ICD-9 : 309.89 ICD-10 : F43.29 04/28/2021 Appointment: Cony Poole WPtel: [address] [place], [place] [phone] ACUTE ILLNESS 04/28/2021 Appointment: Cony Poole WPtel: [phone] [place], [place] [phone] [place] RESCHEDULED 03/25/2021 Visit Diagnosis Plan: Other fatigue Discussion: Will r echeck thyroid labs as previously scheduled, B12, and ferritin level per Dr. Brown- discussed could be causing fatigue. Will f/u after labs or sooner for worsening/concerns. ICD-9 : 780.79 ICD-10 : R53.83 03/19/2021 Appointment: Keeley Johnson WPtel: [phone] [phone] ACUTE ILLNESS 03/19/2021 Patient Education: Patient Medication Summary Completed 03/19/2021 Appointment: Cony Poole WPtel: [phone] [place], [place] [phone] [place] INJECTION 02/27/2021 Visit Diagnosis Plan: Essential [...] I48.91 02/06/2021 Appointment: Cony Poole WPtel: [phone] [phone] ACUTE ILLNESS 02/06/2021 Care Plan: US EXAM OF HEAD AND NECK LOIN C : 68183-7 Pending 02/06/2021 Care Plan: DXA BONE DENSITY AXIAL LOINC : 73737-3 Pending 02/06/2021 Appointment: Keeley Johnson WPtel: [phone] [phone] CANCELED 12/24/2020 Visit Diagnosis Plan: Skin lesion of right leg Discuss ion: Appears to be healing- is smaller, no s/s of infection. Will f/u if does not improve or worsens. ICD-9 : 709.9 ICD-10 : L98.9 12/20/2020 Appointment: Keeley Johnosn WPtel: [phone] [phone] OFFICE SURGERY 12/20/2020 Patient Education: Patient Medication Summary Completed 12/20/2020 Visit Diagnosis Plan: Nontraumatic blister of skin Dis cussion: Small isolated lesion, no s/s of infection. Bandaid and neosporin applied. 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 F/U for worsening/concerns or if more lesions appear. ICD-9 : 709.8 ICD-10 : R23.8 12/11/2020 Appointment: Keeley Johnson WPtel: [phone] [phone] ACUTE ILLNESS 12/11/2020 Patient Education: Patient Medication [...] : R35.1 11/11/2020 Appointment: Cony Poole WPtel: [address] [place], [place] [phone] ACUTE ILLNESS 11/11/2020 Appointment: Cony Poole WPtel: [address] [place], [place] [phone] [place] CANCELED 11/11/2020 Visit Diagnosis Plan: Inflamed seborrheic keratosis Di scussion: Cryotherapy as above ICD-9 : 702.11 ICD-10 : L82.0 09/05/2020 Appointment: Cony Poole WPtel: [address] [place], [place] [phone] ACUTE ILLNESS 09/05/2020 Visit Diagnosis Plan: Essential hypertension Discussio n: Stable ICD-9 : 401.9 ICD-10 : I10 07/29/2020 Visit Diagnosis Plan: Paroxysmal atrial fibrillation D iscussion: On eliquis ICD-9 : 427.31 ICD-10 : I48.0 07/29/2020 Visit Diagnosis Plan: Hypothyroidism Discussion: Lab d iscussed Will recheck lab in 2mos ICD-9 : 244.9 ICD-10 : E03.9 07/29/2020 Appointment: Cony Poole WPtel: [address] [place], [place] [phone] [place] FOLLOW UP 07/29/2020 Visit Diagnosis Plan: Dizziness and giddiness Discussi on: Continue increased dose of Cardizem ER 120mg po BID and monitor BP/pulse Has LINQ device in place Discussed Dee EKG Follow Up: 1 months ICD-9 : 780.4 ICD-10 : R42 06/24/2020 Appointment: Cony Poole WPtel: [phone] [id number] [facility] Follow Up 06/24/2020 Visit Diagnosis Plan: [...] ICD-10 : R53.1 06/21/2020 Appointment: Apoorva Rueda [address] [place] [address] TELEMEDICINE 06/21/2020 Visit Diagnosis Plan: URI (upper [...] : J06.9 03/19/2020 Appointment: Apoorva Rueda [phone] [id number] TELEMEDICINE 03/19/2020 Visit Diagnosis Plan: Atrial fibrillation [...] : I10 02/29/2020 Appointment: Cony Poole WPtel: [phone] [place] [phone] FOLLOW UP 02/29/2020 Care Plan: CT THORAX [...] ICD-10 : I87.2 02/22/2020 Appointment: Apoorva Rueda [address] [place] [address] ACUTE ILLNESS 02/22/2020 Appointment: Cony Poole WPtel: [facility] [place] [facility] [place] [phone] 02/20/2020 Visit Diagnosis Plan: Urinary tract infection Discussi on: based on patient's age and length of illness, clinical s/s, will give 1 gm rocephin in office. urine sent for culture. push fluids and call office with new or worsening symptoms. ICD-9 : 599.0 ICD-10 : N39.0 02/13/2020 Appointment: Apoorva Rueda [address] [place], [place] [phone] ACUTE ILLNESS 02/13/2020 Visit Diagnosis Plan: Neck pain Discussion: Daily stre tches Moist heat Topical muscle rub Can use baclofen 1/2 tab during day and full tab at night ICD-9 : 723.1 ICD-10 : M54.2 2020 Appointment: Cony Poole WPtel: [phone] [phone] ACUTE ILLNESS 2020 Visit Diagnosis Plan: Atrial [...] : M25.531 01/22/2020 Appointment: Cony Poole WPtel: [address] [place], [place] [phone] [place] FOLLOW UP 01/22/2020 Visit Diagnosis Plan: Paroxysmal atrial fibrillation D iscussion: Stable with new meds Follow Up: 1 months ICD-9 : 427.31 ICD-10 : I48.0 12/26/2019 Visit Diagnosis Plan: Essential hypertension Discussio n: Stable ICD-9 : 401.9 ICD-10 : I10 12/26/2019 Appointment: Cony Poole WPtel: [address] [place], [place] [phone] Hospital Follow Up 12/26/2019 Appointment: Cony Poole WPtel: [address] [place], [place] [phone] CANCELED 12/25/2019 Visit Diagnosis Plan: Lung nodule [...] ICD-10 : I50.9 11/27/2019 Appointment: Apoorva Rueda [address] [facility] US FOLLOW UP 11/27/2019 Visit Diagnosis Plan: Hypotension Discussion: Decrease amlodopine to once daily Monitor home BP/pulse and report readings in 2 weeks ICD-9 : 458.9 ICD-10 : I95.9 11/09/2019 Visit Diagnosis Plan: Urinary tract infection Discussi on: Cefdinir Culture urine ICD-9 : 599.0 ICD-10 : N39.0 11/09/2019 Appointment: Apoorva Rueda [address] [facility] US CANCELED 11/09/2019 Appointment: Cony Poole WPtel: [address] [place], [place] [phone] ACUTE ILLNESS 11/09/2019 Patient Education: cefdinir- Opt[employer] Coupon [id number] https://www.[employer]/sampleDivvyCloud/resources/getResource/61/jl5deo28-885x-6303-v1 Completed 11/09/2019 Visit Diagnosis Plan: Left leg swelling Discussion: St at LLE doppler now ICD-9 : 729.81 ICD-10 : M79.89 10/10/2019 Appointment: Cony Poole WPtel: [address] [place], [place] [phone] ACUTE ILLNESS 10/10/2019 Visit Diagnosis Plan: Muscle spasm Discussion: Can use tylenol 325mg po TID Topical muscle rub Baclofen 10mg 1/2-1 po q HS for spasm but hold temazepam while taking Notify if worsening or persists Stretches/Moist Heat ICD-9 : 728.85 ICD-10 : M62.838 08/25/2019 Appointment: Cony Poole WPtel: [address] [phone] US TELEMEDICINE 08/25/2019 Patient Education: baclofen- [employer] Coupon [id number] https://www.[employer]/resources/getResource/61/hguw4271-99ij-3oa9-1d Completed 08/25/2019 Visit Diagnosis Plan: Low back pain Discussion: Check L/S spine x-rays ICD-9 : 724.2 ICD-10 : M54.5 07/13/2019 Visit Diagnosis Plan: Sciatica of left side Discussion : Will likely start with PT pending x-ray results ICD-9 : 724.3 ICD-10 : M54.32 07/13/2019 Appointment: [facility]el[phone] [facility] 07/13/2019 Care Plan: X-RAY EXAM L-S SPINE 2/ VWS LOINC : 15551-0 Pending 07/13/2019 Visit Diagnosis Plan: Pneumonia due to infectious orga nism Discussion: Repeat rocephin 1gm IM today Start cefdinir tomorrow To ER this weekend if worsens ICD-9 : 486 ICD-10 : J18.9 05/18/2019 Appointment: Cony Poole WPtel: [phone] [phone] FOLLOW UP 05/18/2019 Patient Education: cefdinir- [employer] Coupon [id number] https://www.[employer]/resources/getResource/61/2j61z66p-65a7-49u3-g9 Completed 05/18/2019 Patient Education: temazepam- [employer] Coupon [id number] https://www.[employer]/resources/getResource/61/hl1a91ad-0387-7nx5-7f Completed 05/18/2019 Patient Education: Synthroid- Opt[employer] Coupon [id number] https://www.[employer]/resources/getResource/61/78982qwq-ss72-4g31-63 Completed 05/18/2019 Patient Education: Cytomel- OptimizeRX Coupon [id number] https://www.[employer]/resources/getResource/61/xw78vs51-409r-869x-x9 Completed 05/18/2019 Visit Diagnosis Plan: Pneumonia due to infectious orga nism Discussion: Madai 1gm IM now Recheck tomorrow ICD-9 : 486 ICD-10 : J18.9 05/17/2019 Appointment: Cony Poole WPtel: [address] [place], [place] [phone] FOLLOW UP 05/17/2019 Appointment: Cony Poole WPtel: [address] [place], [place] [phone] 05/10/19 1630---see note in chart related to throat culture (km) CANCELED 05/10/2019 Appointment: Cony Poole WPtel: [address] [place], [place] [phone] [facility] 05/08/2019 Appointment: Cony Poole WPtel: [address] [place], [place] [phone] NURSE SERVICES 05/08/2019 Visit Diagnosis Plan: Stomatitis [...] : N39.0 04/24/2019 Appointment: Cony Poole WPtel: [address] [place], [place] [phone] FOLLOW UP 04/24/2019 Patient Education: nystatin- Opt[employer] Coupon [id number] https://www.[employer]/samplemd/resources/getResource/61/f187521g-i494-4w5q-x0 Completed 04/24/2019 Appointment: Cony Poole WPtel: [address] [place], [place] [phone] UA 04/21/2019 Visit Diagnosis Plan: Stomatitis and mucositis with ch bry of taste Discussion: Diflucan and nystatin susp Discussed oral biopsy ICD-9 : 528.00 ICD-10 : K12.1 04/10/2019 Appointment: Cony Poole WPtel: [address] [place], [place] [phone] ACUTE ILLNESS 04/10/2019 Patient Education: nystatin- OptimizeRX Coupon [id number] https://www.[employer]/sampleDivvyCloud/resources/getResource/61/9vinzl45-99a4-7998-fo Completed 04/10/2019 Appointment: Cony Poole WPtel: [address] [place], [place] [phone] US INJECTION 03/02/2019 Patient Education: INFLUENZA VACCINE [...] : R35.1 02/16/2019 Appointment: Cony Poole WPtel: [address] [place], [place] [phone] ACUTE ILLNESS 02/16/2019 Appointment: Cony Poole WPtel: [address] [place], [place] [phone] NO SHOW - FORGIVEN 02/15/2019 Appointment: Cony Poole WPtel: [phone] [phone] US BP CHECK 01/24/2019 Visit Diagnosis Plan: Acute upper respiratory infectio n, unspecified Discussion: cefdinir bid for 7 days. instructed to continue with allergy medications daily. call or rtc with new or worsening symptoms. ICD-9 : 465.9 ICD-10 : J06.9 12/20/2018 Appointment: Apoorva Rueda [address] [place] [address] ACUTE ILLNESS 12/20/2018 Visit Diagnosis Plan: Impacted cerumen, right ear Disc ussion: ear canal cleaned out with lavage. patient tolerated well and had immediate relief of hearing loss. no issues voiced. ICD-9 : 380.4 ICD-10 : H61.21 12/14/2018 Appointment: Apoorva Rueda [address] [place] [address] ACUTE ILLNESS 12/14/2018 Visit Diagnosis Plan: Essential [...] I48.0 12/12/2018 Appointment: Cony Poole WPtel: [phone] [phone] US FOLLOW UP 12/12/2018 Visit Diagnosis Plan: Essential (primary) hypertension Discussion: Stable Patient sees cardiology next week--has been off sotalol since 09/15/18 and BP and pulse have been stable ICD-9 : 401.9 ICD-10 : I10 10/19/2018 Appointment: Cony Poole WPtel: [phone] [phone] US FOLLOW UP 10/19/2018 Appointment: Cony Poole WPtel: [address] [place], [place] [phone] US BP CHECK 10/13/2018 Visit Diagnosis Plan: Allergic rhinitis due to pollen Discussion: Continue zyrtec ICD-9 : 477.9 ICD-10 : J30.1 10/05/2018 Visit Diagnosis Plan: Essential (primary) hypertension Discussion: Stable Recheck 2 weeks ICD-9 : 401.9 ICD-10 : I10 10/05/2018 Appointment: Cony Poole WPtel: [address] [place], [place] [phone] FOLLOW UP 10/05/2018 Patient Education: Synthroid- OptimizeRX Coupon [id number] https://www.[employer]/resources/getResource/61/ook27360-z697-3339-88 Completed 10/05/2018 Visit Diagnosis Plan: Allergic rhinitis due to pollen Discussion: Continue zyrtec Finish prednisone ICD-9 : 477.9 ICD-10 : J30.1 09/28/2018 Visit Diagnosis Plan: Hematuria, unspecified Discussio n: Recheck UA with microscopy in 1 week then fwup ICD-9 : 599.70 ICD-10 : R31.9 09/28/2018 Appointment: Cony Poole WPtel: [address] [place], [place] [phone] FOLLOW UP 09/28/2018 Visit Diagnosis Plan: Allergic rhinitis due to pollen Discussion: Check CBC now May do low dose prednisone pending lab Recheck 2 days ICD-9 : 477.9 ICD-10 : J30.1 09/26/2018 Visit Diagnosis Plan: Slow transit constipation Discus jaelyn: Glycerin Suppository prn Miralax samples given today to use one daily ICD-9 : 564.01 ICD-10 : K59.01 09/26/2018 Appointment: Cony Poole WPtel: [address] [place], [place] [phone] FOLLOW UP 09/26/2018 Visit Diagnosis Plan: Other [...] ICD-10 : J20.9 09/23/2018 Appointment: Merry Diaz [facility] [place] [facility] [employer] [facility] FOLLOW UP 09/23/2018 Patient Education: cefdinir- Opt[employer]RX Coupon [id number] https://www.[employer]/sampleDivvyCloud/resources/getResource/61/7km8y4vu-[email or web address]-e2 Completed 09/23/2018 Visit Diagnosis Plan: Acute bronchitis, unspecified Di scussion: Rocephin today Go for CXR Flu negative Recheck tomorrow ICD-9 : 466.0 ICD-10 : J20.9 09/22/2018 Appointment: Cony Poole WPtel: [phone] [phone] FOLLOW UP 09/22/2018 Visit Diagnosis Plan: Tachycardia, [...] ICD-10 : R30.0 09/20/2018 Appointment: Merry Diaz [facility] [place] [employer] [id number] ACUTE ILLNESS 09/20/2018 Visit Diagnosis Plan: Other fatigue Discussion: Hold s otalol Add B12 500mcg daily as B12 in low normal range Fwup 1 week ICD-9 : 780.79 ICD-10 : R53.83 09/15/2018 Visit Diagnosis Plan: Hypothyroidism, unspecified Disc ussion: Decrease Synthroid to 50mcg daily ICD-9 : 244.9 ICD-10 : E03.9 09/15/2018 Appointment: Cony Poole WPtel: [address] [place], [place] [address] FOLLOW UP 09/15/2018 Appointment: Cony Poole WPtel: [address] [place], [place] [address] UA 09/14/2018 Visit Diagnosis Plan: Chronic fatigue, unspecified Dis cussion: I think her sotalol may be a big factor so will start with updated lab and if it is normal then will hold sotalol and fwup in 1 week ICD-9 : 780.79 ICD-10 : R53.82 09/08/2018 Appointment: Cony Poole WPtel: [address] [place], [place] [address] ACUTE ILLNESS 09/08/2018 Visit Diagnosis Plan: Dysuria Discussion: UA- positive for leuks, hematuria, nitrates. Will start patient on Macrobid and culture urine. Will call patient with results of culture. RTC with worsening symptoms, including fever, increased pain, abdominal pain. Patient states understanding. ICD-9 : 788.1 ICD-10 : R30.0 09/05/2018 Appointment: Merry Diaz [facility][note 3][address] ACUTE ILLNESS 09/05/2018 Care Plan: RML ASSAY THYROID STIM HORMONE Pending 05/26/2018 Care Plan: RML ASSAY OF FREE THYROXINE Pe nding 05/26/2018 Appointment: Cony Poole WPtel: [address] [place], [place] [phone] UA 04/20/2018 Appointment: Cony Poole WPtel: [address] [place], [place] [phone] BP CHECK 04/13/2018 Visit Diagnosis Plan: Impacted cerumen, right ear Disc ussion: cerumen removed with irrigation and lavage. patient tolerated well and had immediate relief. ICD-9 : 380.4 ICD-10 : H61.21 03/18/2018 Appointment: Apoorva Rueda [address] [place], [place] [phone] ACUTE ILLNESS 03/18/2018 Patient Education: Patient Medication [...] I10 03/03/2018 Appointment: Cony Poole WPtel: [phone] [phone] FOLLOW UP 03/03/2018 Patient Education: Patient Medication Summary Completed 03/03/2018 Visit Diagnosis Plan: Atopic dermatitis, unspecified D iscussion: instructed to apply triamcinolone bid for 2 weeks, until follow up. follow with your normal lotion and cover with compression hose. if worsening or no improvement, call clinic. ICD-9 : 691.8 ICD-10 : L20.9 02/16/2018 Appointment: Apoorva Rueda [address] [place], [place] [id number] ACUTE ILLNESS 02/16/2018 Patient Education: Patient Medication [...] ICD-10 : L89.611 01/26/2018 Appointment: Apoorva Rueda [address] [place] [address] ACUTE ILLNESS 01/26/2018 Patient Education: Patient Medication [...] : I10 11/30/2017 Appointment: Cony Poole WPtel: [facility] [place] [facility] [place] [address] [place] FOLLOW UP 11/30/2017 Patient Education: Patient Medication Summary Completed 11/30/2017 Visit Diagnosis Plan: Other seborrheic keratosis Discu ssion: Monitor ICD-9 : 702.19 ICD-10 : L82.1 11/04/2017 Appointment: Cony Poole WPtel: [facility] [place] [place] [phone] [place] Consult 11/04/2017 Patient Education: Patient Medication Summary Completed 11/04/2017 Visit Diagnosis Plan: Achilles tendinitis, right leg D iscussion: educated patient on RICE and the importance of performing all these activities. 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 to assist [...] ICD-10 : M76.61 10/20/2017 Appointment: Apoorva Rueda [address] [place], [place] [phone] ACUTE ILLNESS 10/20/2017 Patient Education: Patient Medication Summary Completed 10/20/2017 Visit Diagnosis Plan: Essential (primary) hypertension Discussion: Stable ICD-9 : 401.9 ICD-10 : I10 08/30/2017 Visit Diagnosis Plan: Weakness Discussion: Check Cervi gerri spine x-ray due to primarily being in upper arms ICD-9 : 780.79 ICD-10 : R53.1 08/30/2017 Appointment: Cony Poole WPtel: [phone] [phone] FOLLOW UP 08/30/2017 Patient Education: Patient Medication Summary Completed 08/30/2017 Care Plan: X-RAY EXAM NECK SPINE 4/5VWS LOINC : 18266-1 Pending 08/30/2017 Patient Education: Patient Medication Summary Completed 08/13/2017 Care Plan: DXA BONE DENSITY AXIAL LOINC : 47103-1 Pending 08/13/2017 Patient Education: Patient Medication Summary Completed 07/01/2017 Care Plan: RML COMPREHEN METABOLIC PANEL LOINC : 10270-4 Pending 07/01/2017 Care Plan: RML ASSAY THYROID STIM HORMONE Pending 07/01/2017 Care Plan: RML ASSAY OF FREE THYROXINE Pe nding 07/01/2017 Care Plan: RML LIPID PANEL LOINC : 72870 -1 Pending 07/01/2017 Care Plan: CBC Pending [...] E03.9 05/25/2017 Appointment: Cony Poole WPtel: [phone] [facility] FOLLOW UP 05/25/2017 Patient Education: Patient Medication [...] : I10 03/22/2017 Appointment: Cony Poole WPtel: [address] [place], [place] [phone] FOLLOW UP 03/22/2017 Patient Education: Patient Medication Summary Completed 03/22/2017 Patient Education: Patient Medication Summary Completed 03/17/2017 Care Plan: RML ASSAY THYROID STIM HORMONE Pending 03/17/2017 Care Plan: RML ASSAY OF FREE THYROXINE Pe nding 03/17/2017 Care Plan: METABOLIC PANEL TOTAL CA LOIN C : 46493-4 Pending 03/17/2017 Appointment: Cony Poole WPtel: [address] [place], [place] [phone] US INJECTION 03/08/2017 Patient Education: Patient Medication Summary Completed 03/08/2017 Visit Diagnosis Plan: Hypothyroidism, unspecified Disc ussion: Increase synthroid to 75mcg daily and recheck 2mos Follow Up: 2 months ICD-9 : 244.9 ICD-10 : E03.9 01/18/2017 Visit Diagnosis Plan: Essential (primary) hypertension Discussion: Stable with current meds ICD-9 : 401.9 ICD-10 : I10 01/18/2017 Appointment: Cony Poole WPtel: [address] [place], [place] [phone] US 01/14lm~sl FOLLOW UP 01/18/2017 Patient Education: Patient Medication Summary Completed 01/18/2017 Appointment: Cony Poole WPtel: [facility] [place] [facility] [place] [facility] [facility] BP CHECK 01/11/2017 Patient Education: Patient Medication Summary Completed 01/11/2017 Patient Education: Patient Medication Summary Completed 01/11/2017 Care Plan: RML ASSAY THYROID STIM HORMONE Pending 01/11/2017 Care Plan: RML ASSAY OF FREE THYROXINE Pe nding 01/11/2017 Appointment: Cony Poole WPtel: [facility] [place] [place] [phone] BP CHECK 01/04/2017 Patient Education: Patient Medication Summary Completed 01/04/2017 Appointment: Cony Poole WPtel: [facility] [place] [place] [phone] BP CHECK 12/28/2016 Patient Education: Patient Medication Summary Completed 12/28/2016 Appointment: Cony Poole WPtel: [facility] [place] [place] [phone] BP CHECK 12/24/2016 Patient Education: Patient Medication Summary Completed 12/24/2016 Visit Diagnosis Plan: Hypotension, unspecified Discuss ion: Hold cozaar tonight Decrease HCTZ to 12.5mg q AM BP check in 1 week ICD-9 : 458.9 ICD-10 : I95.9 12/16/2016 Visit Diagnosis Plan: Localized edema Discussion: Decr ease HCTZ to 12.5mg q AM ICD-9 : 782.3 ICD-10 : R60.0 12/16/2016 Appointment: Cony Poole WPtel: [address] [place], [place] [phone] ACUTE ILLNESS 12/16/2016 Patient Education: Patient Medication [...] : E03.9 11/18/2016 Appointment: Cony Poole WPtel: [address] [place], [place] [phone] 11/17 lm ~sl 11/18 confirmed~sl FOLLOW UP [...] : E03.9 11/04/2016 Appointment: Cony Poole WPtel: [address] [place], [place] [phone] 11/03 confirmed `sl FOLLOW UP 11/04/2016 Patient Education: Patient Medication Summary Completed 11/04/2016 Visit Diagnosis Plan: Hypotension due to drugs Discuss ion: Hydrate Hold Losartan tonight then decrease to 50mg q HS BP check in 1 week ICD-9 : 458.8 ICD-10 : I95.2 10/27/2016 Appointment: Cony Poole WPtel: [address] [place], [place] [phone] 10/26 Confirmed~sl FOLLOW UP 10/27/2016 Patient Education: Patient Medication Summary Completed 10/27/2016 Appointment: Cony Poole WPtel: [address] [place], [place] [phone] [facility] 10/26/2016 Patient Education: Patient Medication Summary Completed 10/26/2016 Visit Diagnosis Plan: Cellulitis of left lower limb Di scussion: Finish Clindamycin Follow Up: 2 weeks ICD-9 : 682.6 ICD-10 : L03.116 10/13/2016 Appointment: Cony Poole WPtel: [phone] [phone] 10/12 lm-sp WORK IN 10/13/2016 Patient Education: Patient Medication Summary Completed 10/13/2016 Visit Diagnosis Plan: Cellulitis of left lower limb Di scussion: Change keflex to clindamycin Add prednisone Continue compression socks and elevate ICD-9 : 682.6 ICD-10 : L03.116 10/08/2016 Appointment: Cony Poole WPtel: [phone] [facility] [place] 10/07 lm~sl 10/08 confirmed`sl FOLLOW UP [...] : L03.116 10/05/2016 Appointment: Cony Poole WPtel: [phone] [phone] 10/01 confirmed `sl FOLLOW UP 10/05/2016 Patient [...] METABOLIC PANEL TOTAL CA LOIN C : 14233-8 Pending 09/30/2016 Visit Diagnosis Plan: Other fatigue [...] I10 08/25/2016 Appointment: Cony Poole WPtel: [phone] [facility] 08/24 confirmed~sl FOLLOW UP 08/25/2016 Patient Education: Patient Medication Summary Completed 08/25/2016 Appointment: Cony Poole WPtel: [phone] [facility] 07/30 rescheduled~sl RESCHEDULED 08/19/2016 Patient Education: Patient Medication Summary Completed 08/19/2016 Care Plan: RML COMPREHEN METABOLIC PANEL LOINC : 81897-9 Pending 08/19/2016 Care Plan: CBC Pending 08/19/2016 [...] : I10 07/28/2016 Appointment: Cony Poole WPtel: [phone] [phone] 07/27 confirmed~sl ACUTE ILLNESS 07/28/2016 Patient Education: Patient Medication Summary Completed 07/28/2016 Patient Education: Patient Medication Summary Completed 07/06/2016 Care Plan: RML ASSAY THYROID STIM HORMONE Pending 07/06/2016 Care Plan: RML ASSAY OF FREE THYROXINE Pe nding 07/06/2016 Appointment: Cony Poole WPtel: [phone] [phone] BP CHECK 06/25/2016 Patient Education: Patient Medication Summary Completed 06/25/2016 Patient Education: Patient Medication Summary Completed 06/25/2016 Care Plan: CBC Pending 06/25/2016 Care Plan: URINALYSIS AUTO W/[place] : 67910-5 Pending 06/25/2016 Visit Diagnosis Plan: Essential (primary) hypertension Discussion: Discussed with Dr Poole Increase HCTZ as above Check CMP in 1-2 weeks Patient to call Dr Noble for follow up with him, 1-2 weeks and management of her HTN ICD-9 : 401.9 ICD-10 : I10 06/23/2016 Appointment: Merle Hernandez [address] [facility] ACUTE ILLNESS 06/23/2016 Patient Education: Patient Medication [...] and agrees 06/03/2016 Appointment: Merle Hernandez [address] [facility] ACUTE ILLNESS 06/03/2016 Patient Education: Patient Medication Summary Completed 06/03/2016 Visit Plan: Exam is fairly benign Flu ra n since her symptoms had such a sudden onset - results negative Likely viral URI Supportive care reviewed Monitor closely Follow up PRN 05/26/2016 Appointment: [facility] [facility] 05/26/2016 Patient Education: Patient Medication Summary Completed 05/26/2016 Visit Plan: Continue current meds and mo nitor BP Continue temazepam at current dose--discussed risks but patient feels much better since getting good rest Check CBC, CMP, TSH, Free T4 05/20/2016 Appointment: Cony Poole WPtel: [address] [place] [address] 05/19 confirmed~sl FOLLOW UP 05/20/2016 Patient Education: Patient Medication Summary Completed 05/20/2016 Appointment: Cony Poole WPtel: [address] [place], [place] [phone] US CANCELED 04/07/2016 Visit Plan: Check right ankle x-ray Disc ussed may need veins in right ankle worked on if swelling/pain persist 03/19/2016 Appointment: Cony Poole WPtel: [address] [place], [place] [phone] ACUTE ILLNESS 03/19/2016 Patient Education: Patient Medication Summary Completed 03/19/2016 Visit Plan: Increase HCTZ to 12.5mg po e very day Recheck Chem [address] Noble next week to discuss antiarrhythmic meds Prevnar 13 today 01/13/2016 Appointment: Cony Poole WPtel: [address] [place] [phone] 01/08 confirmed-sp FOLLOW UP 01/13/2016 Patient Education: Patient Medication Summary Completed 01/13/2016 Visit Plan: Continue current meds and mo nitor BP Check Chem 7 12/12/2015 Appointment: Cony Poole WPtel: [phone] [facility] [place] /onfirmed sl FOLLOW UP 12/12/2015 Patient Education: Patient Medication Summary Completed 12/12/2015 Appointment: Cony Poole WPtel: [phone] [phone] RESCHEDULED 12/10/2015 Visit Plan: Add Restoril 15mg q HS--stuart ent used in hospital with no complications Add back low dose HCTZ at 12.5mg every other day Monitor BP Can hold on nebulizer treatments Check Chem 7 now and recheck 1week 12/05/2015 Appointment: Cony Poole WPtel: [phone] [phone] 12/02 confirmed~sl ER Follow UP 12/05/2015 Patient Education: Patient Medication Summary Completed 12/05/2015 Appointment: Cony Poole WPtel: [phone] [phone] WORK IN 11/28/2015 Visit Plan: Due to patient's symptoms an d high blood pressure I consulted Outpatient orders written for 1L IV fluids with 1G Rocephin and Zofran for nausea. Patient sent to hospital and followup in am. 11/27/2015 Appointment: Cony Poole WPtel: [phone] [phone] UA 11/27/2015 Patient Education: Patient Medication Summary Completed 11/27/2015 Appointment: Cony Poole WPtel: [phone] [phone] LAB 11/25/2015 Patient Education: Patient Medication Summary Completed 11/25/2015 Care Plan: RML COMPREHEN METABOLIC PANEL LOINC : 44049-5 Pending 11/25/2015 Care Plan: RML ASSAY THYROID [...] potassium depletion Get with us rita on [facility] specialist she would like to see Keep BP log and follow up PRN 10/21/2015 Appointment: Merle Hernandez [address] [place] [address] ACUTE ILLNESS 10/21/2015 Patient Education: Patient Medication Summary Completed 10/21/2015 Visit Plan: Stop amlodopine Increase met oprolol to to 50mg q HS and 25mg in AM Switch cozaar to 100mg daily as the insurance does not want to pay for 50mg BID dosing Low Na diet and elevate legs See Cardiology 10/17/2015 Appointment: Cony Poole WPtel: [address] [place], [place] [phone] onfirm~sl FOLLOW UP 10/17/2015 Patient Education: Patient Medication Summary Completed 10/17/2015 Visit Plan: Pt to bring in home BP/HR lo g for review Orders given for CBC, CMP, TSH, MG and 48 holter for further evaluation 10/07/2015 Appointment: Merle Hernandez [address] [place] [address] ACUTE ILLNESS 10/07/2015 Patient Education: Patient Medication Summary Completed 10/07/2015 Visit Plan: Cold vs Allergies Continue z yrtec and nasacort Add steroid pack as above Add plain mucinex, nasal rinses, vicks, humidifier, etc Call if not improving or if worsening - will likely add zpak 09/03/2015 Appointment: Merle Hernandez [address] [place] [address] ACUTE ILLNESS 09/03/2015 Patient Education: Patient Medication Summary Completed 09/03/2015 Visit Plan: BP values reviewed Change me toprolol to 12.5mg po BID BP values in 1month 08/01/2015 Appointment: Cony Poole WPtel: [phone] [phone] 07/31 confirmed-SP FOLLOW UP 08/01/2015 Patient Education: Patient Medication Summary Completed 08/01/2015 Visit Plan: Had lab in the fall--shanelle jennifer aijoanie copy and plan on repeat lab 6mos from last lab then fwup after that Continue current meds Mammogram up-to-date 06/27/2015 Appointment: Cony Poole WPtel: [id number] [id number] 06/26/15 appt confirmed cn NEW PATIENT 06/27 Patient Education: Patient Medication Summary Completed 06/27/2015 Referral: Donald Noble WPtel: [facility] [address] [id number] [place] Referral Initiated Instructions Comment Date . [...] Add Restoril 15mg q HS--patient used i hospital with no complications Add back low [...] potassium depletion Get with us rita on pcmh specialist she would like to see Keep BP [...]
--- OUTSIDE RECORDS SUMMARY | 2022-11-09 15:28 | XMS REPORT | CCD ---
Author Author Tanna Poole D.O. Organization [facility] Address [address] [place] [phone] Phone Care Team Providers Care Assistant Import Manager Name Role Phone Cony Poole D.O. PP Unavailable CCM Unavailable Summary Purpose Interface Exchange Insurance Providers Payer name Policy type / Coverage type Covered green party ID Effective Begin Date Effective End Date WPS MEDICARE PART B [place] Medicare Part B [id number] 2017 Unknown [facility] Medicare Part B [id number] Un known Family history Sister Diagnosis Age [...] Unknown Retired 06/27/[address]: 5982971 Former smoker quit 1986 06/27/[address]: 764447637 Never drinks alcohol 2015 Has the patient [...] Date Stop Date Status Fill Instructions Synthroid 75 mcg tablet RxNorm: 099989 TAKE 1 TABLET BY MOUTH WEDNESDAY, WEDNESDAY, Wednesday10/05/2022 03/21/2023 Active Effexor XR 37.5 mg capsule,extended release RxNorm: 882683 Take 1 Capsule(s) Oral QPM for mood 10/01/2022 12/29/2022 Active losartan 50 mg tablet RxNorm: 988558 Take 1 Tablet(s) Oral two times a day 09/16/2022 03/14/2023 Active Synthroid 75 mcg tablet RxNorm: 945453 Take 1 Tablet(s) Oral MWF 11/25/2022 Active Synthroid 88 mcg tablet RxNorm: 059812 Take 1 Tablet(s) Oral QD Tu, Th, Sa, [place] 08/28/2022 11/25/2022 Active Synthroid 88 mcg tablet RxNorm: 205400 Take 1 Tablet(s) Oral QD Tu, Th, Sa, [place] 08/25/2022 08/25/2022 Inactive Synthroid 75 mcg tablet RxNorm: 213541 Take 1 Tablet(s) Oral MWF 08/25/2022 Inactive Synthroid 75 mcg tablet RxNorm: 809799 Take 1 Tablet(s) Oral MWF 08/24/2022 Inactive hydralazine 10 mg tablet RxNorm: 671829 Take 1 Tablet(s) Oral t wo times a day 07/28/2022 10/25/2022 Active metoprolol succinate ER 100 mg tablet,extended release 24 hr RxNorm: 163926 Take 1 Tablet(s) Oral QPM 07/28/2022 07/28/2022 Inactive Synthroid 88 mcg tablet RxNorm: 468505 Take 1 Tablet(s) Oral QD Wednesday-Wednesday07/28/2022 08/24/2022 Inactive Synthroid 75 mcg tablet RxNorm: 960159 Take 1 Tablet(s) Oral QA M Sat/Sun 07/28/2022 08/24/2022 Inactive losartan 50 mg tablet RxNorm: 870923 1 Tablet(s) Oral two times a day 07/28/2022 07/28/2022 Inactive Zithromax Z-Topher 250 mg tablet RxNorm: 016979 Take 2 Tab let(s) Oral QD x1 dose then 1 daily 07/14/2022 07/18/2022 Inactive losartan 50 mg tablet RxNorm: 037077 TAKE ONE TABLET BY MOUTH DAILY 07/14/2022 07/27/2022 Inactive Synthroid 88 mcg tablet RxNorm: 725571 Take 1 Tablet(s) Oral QD Wednesday-Wednesday06/23/2022 07/27/2022 Inactive Synthroid 75 mcg tablet RxNorm: 809335 Take 1 Tablet(s) Oral QA M Sat/Sun 06/23/2022 07/27/2022 Inactive Xarelto 15 mg tablet RxNorm: 8476223 Take 1 Tablet(s) Oral QD 06/0906/09/2022 Inactive atorvastatin 20 mg tablet RxNorm: 827173 Take 1 Tablet(s) Oral QD 0 06/09/2022 06/09/2022 Inactive metoprolol succinate ER 100 mg tablet,extended release 24 hr RxNorm: 922061 Take 1 Tablet(s) Oral QD 06/09/2022 06/09/2022 Inactive budesonide 0.5 mg/2 mL suspension for nebulization RxNorm: 3 18380 USE 1 VIAL IN NEBULIZER TWICE DAILY (RINSE MOUTH AFTER EACH TREATMENT) 05/29/2022 No Stop Date Active Perforomist 20 mcg/2 mL solution for nebulization RxNorm: 12 02266 USE 1 VIAL IN NEBULIZER TWICE DAILY (MORNING AND EVENING) 05/29/2022 No Stop Date Acti ve Perforomist 20 mcg/2 mL solution for nebulization RxNorm: 12 73426 USE 1 VIAL IN NEBULIZER TWICE DAILY - morning and evening 05/26/2022 05/26/2022 Inac tive Perforomist 20 mcg/2 mL solution for nebulization RxNorm: 12 80559 USE 1 VIAL IN NEBULIZER TWICE DAILY - morning and evening 05/26/2022 05/26/2022 Inac tive budesonide 0.5 mg/2 mL suspension for nebulization RxNorm: 3 91141 USE 1 VIAL IN NEBULIZER TWICE DAILY - rinse mouth after treatment 05/26/2022 05/26/20 Inactive albuterol sulfate 2.5 mg/3 mL (0.083 %) solution for n ebulization RxNorm: 734549 USE 1 VIAL IN NEBULIZER DAILY - for rescue 05/26/2022 05/26/2022 Inactive budesonide 0.5 mg/2 mL suspension for nebulization RxNorm: 3 05880 USE 1 VIAL IN NEBULIZER TWICE DAILY - rinse mouth after treatment 05/26/2022 05/26/20 22 Inactive budesonide 0.5 mg/2 mL suspension for nebulization RxNorm: 3 68296 USE 1 VIAL IN NEBULIZER TWICE DAILY - rinse mouth after treatment 05/26/2022 05/26/20 Inactive losartan 50 mg tablet RxNorm: 321455 Take 1 Tablet(s) Oral two times a day 05/25/2022 05/25/2022 Inactive Synthroid 88 mcg tablet RxNorm: 624779 Take 1 Tablet(s) Oral QD 03/202206/22/2022 Inactive Astepro Allergy 205.5 mcg (0.15 %) nasal spray RxNorm: 81560 84 Take 1 [place] Nasal two times a day in each nostril 03/19/2022 No Stop Date Active Perforomist 20 mcg/2 mL solution for nebulization RxNorm: 12 04671 USE 1 VIAL IN NEBULIZER TWICE DAILY - morning and evening 02/17/2022 02/17/2022 Inac tive Xarelto 15 mg tablet RxNorm: 8207943 Take 1 Tablet(s) Oral QD 02/1706/09/2022 Inactive budesonide 0.5 mg/2 mL suspension for nebulization RxNorm: 3 36960 USE 1 VIAL IN NEBULIZER TWICE DAILY - rinse mouth after treatment 02/05/2022 02/06/20 Inactive Perforomist 20 mcg/2 mL solution for nebulization RxNorm: 12 82948 USE 1 VIAL IN NEBULIZER TWICE DAILY - morning and evening 02/05/2022 02/05/2022 Inac tive albuterol sulfate 2.5 mg/3 mL (0.083 %) solution for n ebulization RxNorm: 080349 USE 1 VIAL IN NEBULIZER DAILY - for rescue 02/05/2022 02/05/2022 Inactive ipratropium bromide 0.02 % solution for inhalation RxNorm: 8 93196 USE 1 VIAL IN NEBULIZER EVERY 4 HOURS - and as needed 02/05/2022 02/16/2022 Inactive albuterol sulfate HFA 90 mcg/actuation aerosol inhaler RxNor m: 5957321 Take 2 Puff(s) Inhalation Q4H as needed as needed 01/27/2022 No Stop Date Activ e Synthroid 88 mcg tablet RxNorm: 926496 Take 1 Tablet(s) Oral QD 01/26/2022 Inactive BRAND NAME ONLY losartan 50 mg tablet RxNorm: 977832 TAKE ONE TABLET BY MOUTH DAILY , REPLACES 25MG DOSE 01/15/2022 07/13/2022 Inactive Symbicort 160 mcg-4.5 mcg/actuation HFA aerosol inhaler RxNo rm: 2870056 2 Puff(s) Inhalation two times a day 10/30/2021 11/28/2021 Inactive Symbicort 160 mcg-4.5 mcg/actuation HFA aerosol inhaler RxNo rm: 2195821 2 Puff(s) Inhalation two times a day 10/30/2021 10/30/2021 Inactive Synthroid 88 mcg tablet RxNorm: 924604 Take 1 Tablet(s) Oral QD 10/29/2021 Inactive Breo Ellipta 200 mcg-25 mcg/dose powder for inhalation RxNor m: 3660140 Inhale 1 Puff(s) Inhalation QD 10/29/2021 10/29/2021 Inactive Breo Ellipta 200 mcg-25 mcg/dose powder for inhalation RxNor m: 9446540 Inhale 1 Puff(s) Inhalation QD 10/29/2021 10/29/2021 Inactive replaces a dvair Flonase Allergy Relief 50 mcg/actuation nasal spray,suspensi on RxNorm: 2417390 2 [place] Nasal every night at bedtime 10/28/2021 10/28/2021 Inactive Synthroid 88 mcg tablet RxNorm: 676624 Take 1 Tablet(s) Oral QD 10/28/2021 Inactive BRAND NAME ONLY fluticasone 113 mcg-salmeterol 14 mcg/actuation breath activated powdr RxNorm: 7583482 Inhale 1 Puff(s) Inhalation QAM 10/28/2021 10/28/2021 Inactive losartan 50 mg tablet RxNorm: 889014 1 Tablet(s) Oral QD replac es 25mg dose 10/20/2021 10/20/2021 Inactive metoprolol succinate ER 100 mg tablet,extended release 24 hr RxNorm: 800899 1 Tablet(s) Oral QD 09/23/2021 06/09/2022 Inactive potassium chloride ER 8 mEq capsule,extended release RxNorm: 900585 Take 1 Capsule(s) Oral QOD with lasix 09/15/2021 03/18/2022 Inactive Synthroid 88 mcg tablet RxNorm: 717902 Take 1 Tablet(s) Oral QD 12/202110/27/2021 Inactive BRAND NAME ONLY potassium chloride ER 8 mEq capsule,extended release RxNorm: 859961 1 Capsule(s) Oral QOD with lasix 09/11/2021 09/11/2021 Inactive metoprolol succinate ER 100 mg tablet,extended release 24 hr RxNorm: 979222 Take 1/2 Tablet(s) Oral QD 08/21/2021 09/22/2021 Inactive Synthroid 88 mcg tablet RxNorm: 378423 Take 1 Tablet(s) Oral QD 07/23/2021 Inactive BRAND NAME ONLY clindamycin HCl 300 mg capsule RxNorm: 407790 Take 1 Ca psule(s) Oral three times a day 07/03/2021 07/09/2021 Inactive clindamycin HCl 300 mg capsule RxNorm: 555497 Take 1 Ca psule(s) Oral three times a day 07/03/2021 07/03/2021 Inactive Synthroid 88 mcg tablet RxNorm: 968387 Take 1 Tablet(s) Oral QD 07/03/2021 Inactive BRAND NAME ONLY0 potassium chloride ER 8 mEq capsule,extended release RxNorm: 822135 1 Capsule(s) Oral QOD with lasix 06/26/2021 09/11/2021 Inactive potassium chloride ER 8 mEq tablet,extended release RxNorm: 899532 Take 2 Tablet(s) Oral two times a day 06/23/2021 06/25/2021 Inactive atorvastatin 20 mg tablet RxNorm: 800033 Take 1 Tablet(s) Oral QD 0 06/19/2021 06/09/2022 Inactive diltiazem CD 300 mg capsule,extended release 24 hr RxNorm: 8 36185 Take 1 Capsule(s) Oral QAM 06/19/2021 08/20/2021 Inactive potassium chloride ER 8 mEq tablet,extended release RxNorm: 922842 Take 2 Tablet(s) Oral two times a day 06/19/2021 06/23/2021 Inactive fluticasone 113 mcg-salmeterol 14 mcg/actuation [facility]: 5906894 Inhale 1 Puff(s) Inhalation QAM 06/19/2021 10/27/2021 Inactive furosemide 40 mg tablet RxNorm: 160609 Take 1 Tablet(s) Oral QAM 03/18/2022 Inactive alprazolam 0.25 mg tablet RxNorm: 596967 Take 1 Tablet(s) Oral Q8H as needed 06/19/2021 07/29/2021 Inactive gabapentin 100 mg capsule RxNorm: 660058 Take 2 Capsule (s) Oral every night at bedtime 06/19/2021 07/29/2021 Inactive losartan 25 mg tablet RxNorm: 589886 Take 1 Tablet(s) Oral QD 06/1910/20/2021 Inactive tramadol 50 mg tablet RxNorm: 271600 Take 1 Tablet(s) O ral three times a day as needed 06/19/2021 10/27/2021 Inactive Tylenol Arthritis Pain 650 mg tablet,extended release RxNorm : 4039867 Take 1 Tablet(s) Oral four times a day 05/05/2021 03/18/2022 Inactive Synthroid 88 mcg tablet RxNorm: 707713 Take 1 Tablet(s) Oral QD 04/30/2021 Inactive BRAND NAME ONLY0 Synthroid 88 mcg tablet RxNorm: 426109 1 Tablet(s) Oral QD 04/29/20 21 04/29/2021 Inactive Synthroid 88 mcg tablet RxNorm: 330504 1 Tablet(s) Oral QD 04/29/20 21 04/29/2021 Inactive magnesium oxide 400 mg (241.3 mg magnesium) tablet RxNorm: 1 78755 1 Tablet(s) Oral every night at bedtime 04/03/2021 No Stop Date Active Vitamin B12 1000mcg Tablet RxNorm: Take 1/2 Tablet(s) Oral QD 04/03/2021 No Stop Date Active aspirin 81 mg capsule RxNorm: 379198 1 Capsule(s) Oral QD No Stop Date Active doxazosin 1 mg tablet RxNorm: 212623 1 Tablet(s) Oral QPM 03/19/2021 04/02/2021 Inactive Cartia XT 240 mg capsule,extended release RxNorm: 926241 Take 1 Capsule(s) Oral QD 02/06/2021 06/18/2021 Inactive fluticasone propionate 50 mcg/actuation nasal spray,suspensi on RxNorm: 3407895 SHAKE LIQUID AND USE 2 SPRAYS IN EACH NOSTRIL EVERY NIGHT AT BEDTIME 12/19/2020 01/17/2021 Inactive diltiazem 120 mg tablet RxNorm: 972270 1 Tablet(s) Oral QD 12/12/1902/05/2021 Inactive Flonase Allergy Relief 50 mcg/actuation nasal spray,suspensi on RxNorm: 9524362 2 [place] Nasal every night at bedtime 11/21/2020 11/21/2020 Inactive diltiazem 120 mg tablet RxNorm: 031161 Take 1 Tablet(s) Oral tw o times a day 11/11/2020 12/10/2020 Inactive oxybutynin chloride 5 mg tablet RxNorm: 594871 Take 1 T ablet(s) Oral every night at bedtime for overactive bladder 11/11/2020 11/11/2020 Inactive oxybutynin chloride 5 mg tablet RxNorm: 150550 Take 1 T ablet(s) Oral every night at bedtime for overactive bladder 11/11/2020 11/11/2020 Inactive oxybutynin chloride 5 mg tablet RxNorm: 606036 TAKE 1 T ABLET BY MOUTH EVERY NIGHT AT BEDTIME FOR OVERACTIVE BLADDER 11/11/2020 02/05/2021 Inactive Patient requests 90 days supply MagOx 400 mg (241.3 mg magnesium) tablet RxNorm: 241702 TAKE 1 TABLET BY MOUTH EVERY OTHER DAY 10/28/2020 02/05/2021 Inactive Synthroid 75 mcg tablet RxNorm: 606308 TAKE 1 TABLET BY MOUTH EVERY DAY DIRECTED 09/06/2020 04/29/2021 Inactive diltiazem CD 120 mg capsule,extended release 24 hr RxNorm: 8 39854 1 Tablet(s) Oral QD 09/05/2020 11/10/2020 Inactive Synthroid 75 mcg tablet RxNorm: 278542 TAKE 1 TABLET BY MOUTH EVERY DAY DIRECTED 09/03/2020 09/05/2020 Inactive Synthroid 75 mcg tablet RxNorm: 193051 TAKE 1 TABLET BY MOUTH EVERY DAY DIRECTED 09/03/2020 09/02/2020 Inactive MagOx 400 mg (241.3 mg magnesium) tablet RxNorm: 836573 1 Table t(s) Oral QOD 07/30/2020 11/10/2020 Inactive MagOx 400 mg (241.3 mg magnesium) tablet RxNorm: 358741 1 Table t(s) Oral QOD 07/29/2020 07/29/2020 Inactive diltiazem CD 120 mg capsule,extended release 24 hr RxNorm: 8 66354 1 Tablet(s) Oral two times a day 07/29/2020 09/04/2020 Inactive diltiazem CD 120 mg capsule,extended release 24 hr RxNorm: 8 23129 1 Tablet(s) Oral two times a day 07/04/2020 07/03/2020 Inactive diltiazem CD 120 mg capsule,extended release 24 hr RxNorm: 8 32485 1 Tablet(s) Oral two times a day 07/04/2020 07/28/2020 Inactive Eliquis 5 mg tablet RxNorm: 3444191 TAKE 1 TABLET BY MOUTH TWICE DAILY 06/10/2020 02/16/2022 Inactive diltiazem CD 120 mg capsule,extended release 24 hr RxNorm: 8 06529 TAKE 1 CAPSULE BY MOUTH DAILY 06/10/2020 06/09/2020 Inactive Eliquis 5 mg tablet RxNorm: 5590692 TAKE 1 TABLET BY MOUTH TWICE DAILY 06/10/2020 06/09/2020 Inactive diltiazem CD 120 mg capsule,extended release 24 hr RxNorm: 8 20813 TAKE 1 CAPSULE BY MOUTH DAILY 06/10/2020 07/03/2020 Inactive Synthroid 75 mcg tablet RxNorm: 058323 TAKE 1 TABLET BY MOUTH EVERY DAY DIRECTED 06/10/2020 09/02/2020 Inactive Flonase Allergy Relief 50 mcg/actuation nasal spray,suspensi on RxNorm: 7021205 2 [place] Nasal every night at bedtime 04/26/2020 04/26/2020 Inactive Vitamin D3 25 mcg (1,000 unit) capsule RxNorm: 899052 3 Capsule (s) Oral QD 04/22/2020 No Stop Date Active MagOx 400 mg (241.3 mg magnesium) tablet RxNorm: 605036 1 Table t(s) Oral QOD 04/22/2020 04/21/2020 Inactive MagOx 400 mg (241.3 mg magnesium) tablet RxNorm: 704473 1 Table t(s) Oral QOD 04/22/2020 07/21/2020 Inactive prednisone 10 mg tablet RxNorm: 457471 1 Tablet(s) Oral two norma es a day 03/22/2020 03/27/2020 Inactive Eliquis 5 mg tablet RxNorm: 6599193 TAKE 1 TABLET BY MOUTH TWICE DAILY 03/15/2020 06/09/2020 Inactive Synthroid 75 mcg tablet RxNorm: 352156 TAKE 1 TABLET BY MOUTH EVERY DAY DIRECTED 03/15/2020 06/09/2020 Inactive furosemide 20 mg tablet RxNorm: 379953 1 Tablet(s) Oral QAM as needed 03/14/2020 06/20/2020 Inactive diltiazem CD 120 mg capsule,extended release 24 hr RxNorm: 8 94226 TAKE 1 CAPSULE BY MOUTH DAILY 03/14/2020 06/09/2020 Inactive amiodarone 200 mg tablet RxNorm: 948013 TAKE 1 TABLET BY MOUTH SIMON Y 03/14/2020 06/23/2020 Inactive potassium chloride ER 20 mEq tablet,extended release RxNorm: 293546 1 Tablet(s) Oral two times a day as needed 02/29/2020 06/20/2020 Inactive furosemide 20 mg tablet RxNorm: 215240 1 Tablet(s) Oral QAM as needed 02/29/2020 03/13/2020 Inactive Macrobid 100 mg capsule RxNorm: 269414 1 Capsule(s) Oral two ti mes a day 02/15/2020 02/18/2020 Inactive Macrobid 100 mg capsule RxNorm: 324853 1 Capsule(s) Oral two ti mes a day 02/15/2020 02/14/2020 Inactive magnesium oxide 400 mg (241.3 mg magnesium) tablet RxNorm: 1 27523 TAKE 1/2 TABLET BY MOUTH EVERY DAY 01/30/2020 02/21/2020 Inactive Flonase Allergy Relief 50 mcg/actuation nasal spray,suspensi on RxNorm: 2297483 2 [place] Nasal every night at bedtime 01/22/2020 04/25/2020 Inactive furosemide 20 mg tablet RxNorm: 121683 1 Tablet(s) Oral QOD 020 02/12/2020 Inactive potassium chloride ER 20 mEq tablet,extended release RxNorm: 871437 1 Tablet(s) Oral two times a day 01/04/202002/12/2020 Inactive potassium chloride ER 20 mEq tablet,extended release RxNorm: 663111 TAKE 1 TABLET BY MOUTH TWICE DAILY 01/03/2020 01/03/2020 Inactive diltiazem CD 120 mg capsule,extended release 24 hr RxNorm: 8 07183 1 Capsule(s) Oral QD 12/26/2019 03/13/2020 Inactive Colace 100 mg capsule RxNorm: 0236740 2 Capsule(s) Oral QD 12/26/1903/18/2022 Inactive Flonase Allergy Relief 50 mcg/actuation nasal spray,suspensi on RxNorm: 4816522 2 SPRAY NASAL QHS 12/26/2019 12/28/2019 Inactive amiodarone 200 mg tablet RxNorm: 656418 1 Tablet(s) Oral QD 01/21/2020 Inactive Eliquis 5 mg tablet RxNorm: 1253267 1 Tablet(s) Oral two times a da y 12/26/2019 03/14/2020 Inactive potassium chloride ER 20 mEq tablet,extended release RxNorm: 841514 2 Tablet(s) Oral QD with furosemide 12/20/2019 01/21/2020 Inactive furosemide 20 mg tablet RxNorm: 668358 1 Tablet(s) Oral QAM 020 01/18/2020 Inactive Synthroid 75 mcg tablet RxNorm: 517797 1 Tablet(s) Oral QD 12/18/1902/16/2020 Inactive potassium chloride ER 20 mEq tablet,extended release RxNorm: 202498 2 Tablet(s) Oral QOD with furosemide 11/29/2019 12/19/2019 Inactive furosemide 40 mg tablet RxNorm: 566279 1 Tablet(s) Oral QOD 020 12/19/2019 Inactive amlodipine 5 mg tablet RxNorm: 974155 1 Tablet(s) Oral every ni ght at bedtime 11/27/2019 12/18/2019 Inactive Lasix 40 mg tablet RxNorm: 242070 1 Tablet(s) Oral QAM 11/23/2019 Inactive potassium chloride ER 20 mEq tablet,extended release RxNorm: 637374 TAKE 1 TABLET BY MOUTH TWICE DAILY 1 Tablet(s) Oral QD 11/23/2019 02/12/2020 Inactive Lasix 40 mg tablet RxNorm: 752345 1 Tablet(s) Oral QAM 11/23/2019 Inactive potassium chloride ER 20 mEq tablet,extended release RxNorm: 025145 TAKE 1 TABLET BY MOUTH TWICE DAILY 1 Tablet(s) Oral QD 11/23/2019 11/22/2019 Inactive cefdinir 300 mg capsule RxNorm: 102955 1 Capsule(s) Oral two ti mes a day 11/09/2019 11/16/2019 Inactive temazepam 15 mg capsule RxNorm: 976478 TAKE 1 CAPSULE B Y MOUTH EVERY NIGHT AT BEDTIME 11/06/2019 12/18/2019 Inactive magnesium oxide 400 mg (241.3 mg magnesium) tablet RxNorm: 1 54619 TAKE 1/2 TABLET BY MOUTH EVERY DAY 11/03/2019 2020 Inactive Synthroid 75 mcg tablet RxNorm: 344418 TAKE 1 TABLET BY MOUTH E VERY DAY 10/16/2019 12/17/2019 Inactive potassium chloride ER 20 mEq tablet,extended release RxNorm: 514353 TAKE 1 TABLET BY MOUTH TWICE DAILY 10/02/2019 11/28/2019 Inactive baclofen 10 mg tablet RxNorm: 489499 1/2-1 Tablet(s) Or al QPM as needed for muscle spasm 09/21/2019 01/21/2020 Inactive hydrochlorothiazide 25 mg tablet RxNorm: 849986 TAKE 1 TABLET BY MOUTH EVERY MORNING 09/21/2019 11/26/2019 Inactive amlodipine 5 mg tablet RxNorm: 627695 TAKE 1 TABLET BY MOUTH TW ICE DAILY 09/06/2019 11/27/2019 Inactive magnesium oxide 400 mg (241.3 mg magnesium) tablet RxNorm: 1 49611 TAKE 1/2 TABLET BY MOUTH EVERY DAY 09/06/2019 11/02/2019 Inactive temazepam 15 mg capsule RxNorm: 134493 TAKE 1 CAPSULE B Y MOUTH EVERY DAY AT BEDTIME 09/04/2019 11/05/2019 Inactive baclofen 10 mg tablet RxNorm: 528206 1/2-1 Tablet(s) Or al QPM as needed for muscle spasm 08/25/2019 09/20/2019 Inactive Synthroid 75 mcg tablet RxNorm: 330296 TAKE 1 TABLET BY MOUTH E VERY DAY 08/17/2019 10/15/2019 Inactive Cytomel 5 mcg tablet RxNorm: 047753 TAKE 1 TABLET BY MOUTH EVERY DA Y 08/13/2019 01/21/2020 Inactive potassium chloride ER 20 mEq tablet,extended release RxNorm: 090279 TAKE 1 TABLET BY MOUTH TWICE DAILY 07/06/2019 10/01/2019 Inactive Synthroid 75 mcg tablet RxNorm: 151646 1 Tablet(s) Oral QD Recheck labs in 2 months 06/21/2019 08/16/2019 Inactive Recheck labs in 2 months Synthroid 75 mcg tablet RxNorm: 327167 1 Tablet(s) Oral QD Recheck labs in 2 months 06/21/2019 06/20/2019 Inactive Recheck labs in 2 months amlodipine 5 mg tablet RxNorm: 509648 TAKE 1 TABLET BY MOUTH TW ICE DAILY 06/11/2019 09/05/2019 Inactive Diflucan 100 mg tablet RxNorm: 440644 1 Tablet(s) Oral QD 05/29/2019 06/04/2019 Inactive Zithromax Z-Topher 250 mg tablet RxNorm: 909090 Tablet(s) Oral as directed 05/29/2019 05/28/2019 Inactive Zithromax Z-Topher 250 mg tablet RxNorm: 445578 Tablet(s) Oral as directed 05/29/2019 05/29/2019 Inactive Diflucan 100 mg tablet RxNorm: 474720 1 Tablet(s) Oral QD 05/29/2019 05/28/2019 Inactive cefdinir 300 mg capsule RxNorm: 028852 1 Capsule(s) Oral two ti mes a day 05/19/2019 05/22/2019 Inactive Synthroid 50 mcg tablet RxNorm: 021243 1 TABLET(S) PO QD 05/18/2019 0 06/20/2019 Inactive lab draw in 2 months to recheck thyroid temazepam 15 mg capsule RxNorm: 969897 TAKE 1 CAPSULE B Y MOUTH EVERY DAY AT BEDTIME 05/18/2019 07/16/2019 Inactive Cytomel 5 mcg tablet RxNorm: 201321 1 Tablet(s) Oral QD 05/18/2019 Inactive cefdinir 300 mg capsule RxNorm: 658414 1 Capsule(s) Oral two ti mes a day 05/18/2019 05/18/2019 Inactive magnesium oxide 400 mg (241.3 mg magnesium) tablet RxNorm: 1 67203 1/2 TABLET(S) PO QD 05/10/2019 05/10/2019 Inactive temazepam 15 mg capsule RxNorm: 159787 TAKE 1 CAPSULE B Y MOUTH EVERY DAY AT BEDTIME 05/09/2019 05/16/2019 Inactive magnesium oxide 400 mg (241.3 mg magnesium) tablet RxNorm: 1 22474 1/2 TABLET(S) PO QD 05/02/2019 05/09/2019 Inactive nystatin 100,000 unit/mL oral suspension RxNorm: 856706 5 Milliliter(s) Oral four times a day 04/24/2019 05/07/2019 Inactive cephalexin 500 mg capsule RxNorm: 790392 1 Capsule(s) Oral thre e times a day 04/21/2019 04/27/2019 Inactive cephalexin 500 mg capsule RxNorm: 622101 1 Capsule(s) Oral thre e times a day 04/21/2019 04/20/2019 Inactive potassium chloride ER 20 mEq tablet,extended release RxNorm: 019248 1 Tablet(s) Oral two times a day 04/10/2019 07/05/2019 Inactive Patient r equests 90 days supplyPatient requests 90 days supply nystatin 100,000 unit/mL oral suspension RxNorm: 781364 5 Milliliter(s) Oral four times a day 04/10/2019 04/23/2019 Inactive Diflucan 100 mg tablet RxNorm: 113315 1 Tablet(s) Oral QD 04/10/2019 04/17/2019 Inactive temazepam 15 mg capsule RxNorm: 037501 TAKE 1 CAPSULE B Y MOUTH EVERY DAY AT BEDTIME 04/04/2019 05/03/2019 Inactive Synthroid 50 mcg tablet RxNorm: 107046 1 TABLET(S) PO QD 04/04/2019 1 07/18/2018 Inactive lab draw in 2 months to recheck thyroid magnesium oxide 400 mg (241.3 mg magnesium) tablet RxNorm: 1 23816 1 Tablet(s) Oral QOD 04/04/2019 02/21/2020 Inactive hydrochlorothiazide 25 mg tablet RxNorm: 001827 1 Tablet(s) Oral QA M 03/28/2019 09/20/2019 Inactive amlodipine 5 mg tablet RxNorm: 271631 1 TABLET(S) PO BID 03/15/2019 0 06/12/2019 Inactive magnesium oxide 400 mg (241.3 mg magnesium) tablet RxNorm: 1 28498 1/2 TABLET(S) PO QD 03/06/2019 04/03/2019 Inactive Cytomel 5 mcg tablet RxNorm: 269678 1 Tablet(s) PO QD 02/20/201902/05 Inactive Cytomel 5 mcg tablet RxNorm: 499046 1 Tablet(s) PO QD 02/20/201905/07 Inactive amlodipine 5 mg tablet RxNorm: 648308 1 Tablet(s) PO BID 02/16/2019 0 02/15/2019 Inactive amlodipine 5 mg tablet RxNorm: 263203 1 Tablet(s) PO BID 02/16/2019 1 07/17/2018 Inactive amlodipine 5 mg tablet RxNorm: 770870 1 Tablet(s) PO BID 02/16/2019 0 02/16/2019 Inactive Synthroid 50 mcg tablet RxNorm: 452168 1 TABLET(S) PO QD 02/13/2019 1 Inactive Synthroid 50 mcg tablet RxNorm: 032044 1 TABLET(S) PO QD 01/16/2019 0 02/12/2019 Inactive magnesium oxide 400 mg (241.3 mg magnesium) tablet RxNorm: 1 02499 1/2 Tablet(s) PO QD 01/11/2019 03/05/2019 Inactive temazepam 15 mg capsule RxNorm: 705845 1 Capsule(s) PO QHS 01/04/2004/03/2019 Inactive cefdinir 300 mg capsule RxNorm: 120115 1 Capsule(s) PO BID 12/22/19 19 12/20/2018 Inactive cefdinir 300 mg capsule RxNorm: 684273 1 Capsule(s) PO BID 12/22/19 19 12/24/2018 Inactive hydrochlorothiazide 25 mg tablet RxNorm: 144217 1 Tablet(s) PO QAM 12/19/2018 03/27/2019 Inactive magnesium oxide 400 mg (241.3 mg magnesium) tablet RxNorm: 1 72311 1/2 Tablet(s) PO QD 12/15/2018 01/11/2019 Inactive magnesium oxide 400 mg (241.3 mg magnesium) tablet RxNorm: 1 40603 1/2 Tablet(s) PO QD 12/15/2018 12/14/2018 Inactive Flonase Allergy Relief 50 mcg/actuation nasal spray,suspensi on RxNorm: 4492284 2 SPRAY NASAL QHS 11/09/2018 12/11/2018 Inactive temazepam 15 mg capsule RxNorm: 173775 1 Capsule(s) PO QHS 11/08/19 19 01/02/2019 Inactive Synthroid 50 mcg tablet RxNorm: 065921 1 Tablet(s) PO QD 10/21/2018 0 01/15/2019 Inactive potassium chloride ER 20 mEq tablet,extended release RxNorm: 972567 Tablet(s) 1 TABLET(S) PO BID 10/19/2018 04/09/2019 Inactive Patient reque sts 90 days supplyPatient requests 90 days supply Flonase Allergy Relief 50 mcg/actuation nasal spray,suspensi on RxNorm: 7384201 2 SPRAY NASAL QHS 10/14/2018 12/11/2018 Inactive Patient reques ts 90 days supply Flonase Allergy Relief 50 mcg/actuation nasal spray,suspensi on RxNorm: 2731131 2 [place] NASAL QHS 10/13/2018 10/13/2018 Inactive temazepam 15 mg capsule RxNorm: 049073 1 Capsule(s) PO QHS 10/06/19 19 11/06/2018 Inactive Synthroid 50 mcg tablet RxNorm: 902623 1 Tablet(s) PO QD 10/05/2018 0 10/20/2018 Inactive promethazine 6.25 mg/5 mL oral syrup RxNorm: 811965 5 M illiliter(s) PO Q6H as needed for cough 09/30/2018 12/11/2018 Inactive promethazine-DM 6.25 mg-15 mg/5 mL oral syrup RxNorm: 876248 5 PO Q6H as needed for cough 09/30/2018 12/11/2018 Inactive prednisone 10 mg tablet RxNorm: 515409 1 Tablet(s) PO QD 09/27/2018 0 09/26/2018 Inactive prednisone 10 mg tablet RxNorm: 004893 1 Tablet(s) PO QD 09/27/2018 0 10/03/2018 Inactive cefdinir 300 mg capsule RxNorm: 577286 1 Capsule(s) PO BID 09/24/19 19 09/29/2018 Inactive Macrobid 100 mg capsule RxNorm: 764916 1 Capsule(s) PO BID 09/21/19 19 09/25/2018 Inactive potassium chloride ER 20 mEq tablet,extended release RxNorm: 761580 1 TABLET(S) PO BID 09/14/2018 10/13/2018 Inactive Patient reques ts 90 days supplyPatient requests 90 days supply potassium chloride ER 20 mEq tablet,extended release RxNorm: 617366 1 Tablet(s) PO BID 09/12/2018 09/13/2018 Inactive Patient reques ts 90 days supply Macrobid 100 mg capsule RxNorm: 754368 1 Capsule(s) PO BID 09/06/1909/11/2018 Inactive potassium chloride ER 20 mEq tablet,extended release RxNorm: 728974 1 TABLET(S) PO QD 1 TABLET(S) PO QD 08/26/2018 09/11/2018 Inactive Patien t requests 90 days supply potassium chloride ER 20 mEq tablet,extended release RxNorm: 686873 1 Tablet(s) PO QD 1 TABLET(S) PO QD 08/26/2018 08/25/2018 Inactive potassium chloride ER 20 mEq tablet,extended release RxNorm: 448744 1 TABLET(S) PO QD 08/25/2018 08/25/2018 Inactive Synthroid 50 mcg tablet RxNorm: 795566 1 TABLET(S) PO QD DAW1 08/2309/04/2018 Inactive potassium chloride ER 20 mEq tablet,extended release RxNorm: 208730 1 Tablet(s) PO QD 07/28/2018 08/24/2018 Inactive potassium chloride ER 20 mEq tablet,extended release RxNorm: 427188 1 Tablet(s) PO QD 07/28/2018 07/27/2018 Inactive hydrochlorothiazide 25 mg tablet RxNorm: 874928 1 Tablet(s) PO QAM 06/27/2018 12/18/2018 Inactive Synthroid 50 mcg tablet RxNorm: 262251 1 Tablet(s) PO QD DAW1 06/2708/22/2018 Inactive Synthroid 50 mcg tablet RxNorm: 341147 1 TABLET(S) PO QD DAW1 06/1306/26/2018 Inactive Synthroid 75 mcg tablet RxNorm: 750329 1 TABLET(S) PO QD 06/13/2018 0 09/04/2018 Inactive BRAND ONLY mupirocin 2 % topical ointment RxNorm: 991442 1 Applica tion TOP BID to affected area as needed 05/03/2018 09/14/2018 Inactive hydrochlorothiazide 25 mg tablet RxNorm: 510338 1 TABLET(S) PO QD 1 07/02/2017 06/26/2018 Inactive Synthroid 50 mcg tablet RxNorm: 071855 1 Tablet(s) PO QD DAW1 04/1506/12/2018 Inactive Synthroid 50 mcg tablet RxNorm: 203402 1 Tablet(s) PO QD DAW1 04/1504/14/2018 Inactive Synthroid 75 mcg tablet RxNorm: 477751 1 Tablet(s) PO QD 03/15/2018 1 06/14/2017 Inactive BRAND ONLY temazepam 15 mg capsule RxNorm: 705130 1 Capsule(s) PO QHS 03/15/20 18 06/12/2018 Inactive Synthroid 75 mcg tablet RxNorm: 007529 1 Tablet(s) PO QD 01/27/2018 1 Inactive BRAND ONLY Synthroid 75 mcg tablet RxNorm: 985268 1 Tablet(s) PO QD (6 day s per week) 01/17/2018 01/26/2018 Inactive BRAND ONLY Duexis 800 mg-26.6 mg tablet RxNorm: 4789347 1/2 Tablet(s) PO BID 0 10/20/2017 10/22/2017 Inactive Synthroid 75 mcg tablet RxNorm: 895735 1 Tablet(s) PO QD 09/17/2017 1 Inactive BRAND ONLY hydrochlorothiazide 25 mg tablet RxNorm: 910894 1 TABLET(S) PO QD 0 08/30/2017 05/01/2018 Inactive hydrochlorothiazide 25 mg tablet RxNorm: 165269 1 Tablet(s) PO QAM 06/03/2017 09/14/2018 Inactive hydrochlorothiazide 12.5 mg tablet RxNorm: 287609 1 Tablet(s) PO QA M 05/25/2017 06/02/2017 Inactive Synthroid 75 mcg tablet RxNorm: 068307 1 Tablet(s) PO QD 05/14/2017 0 09/17/2017 Inactive BRAND ONLY Restoril 15 mg capsule RxNorm: 023683 TAKE 1 CAPSULE BY MOUTH EVERY NIGHT AT BEDTIME NEEDED 03/05/2017 04/02/2017 Inactive Synthroid 75 mcg tablet RxNorm: 578564 1 Tablet(s) PO QD 01/18/2017 1 07/15/2016 Inactive BRAND ONLY Synthroid 50 mcg tablet RxNorm: 370583 1 Tablet(s) PO QD 01/13/2017 0 01/17/2017 Inactive tizanidine 2 mg tablet RxNorm: 764853 1 Tablet(s) PO QHS for spasm 01/04/2017 03/21/2017 Inactive tizanidine 2 mg tablet RxNorm: 869726 1 Tablet(s) PO QHS for spasm 12/17/2016 01/04/2017 Inactive hydrochlorothiazide 25 mg tablet RxNorm: 429470 1 Tablet(s) PO QD 0 12/04/2016 01/03/2017 Inactive Synthroid 50 mcg tablet RxNorm: 990220 1 Tablet(s) PO QD as directe d 11/18/2016 01/13/2017 Inactive Synthroid 75 mcg tablet RxNorm: 355067 1 Tablet(s) PO QD as directe d 11/18/2016 01/10/2017 Inactive Restoril 15 mg capsule RxNorm: 828807 1 Capsule(s) PO QHS as ne eded for sleep 11/16/2016 03/05/2017 Inactive losartan 50 mg tablet RxNorm: 943815 1 Tablet(s) PO BID 10/19/2016 Inactive prednisone 20 mg tablet RxNorm: 775190 1 Tablet(s) PO QD 10/08/2016 0 10/07/2016 Inactive clindamycin 300 mg capsule RxNorm: 925051 1 Capsule(s) PO TID 10/0810/17/2016 Inactive prednisone 20 mg tablet RxNorm: 336098 1 Tablet(s) PO QD 10/08/2016 0 10/12/2016 Inactive clindamycin 300 mg capsule RxNorm: 949112 1 Capsule(s) PO TID 10/0810/07/2016 Inactive cephalexin 500 mg capsule RxNorm: 352619 1 Capsule(s) PO TID 201610/07/2016 Inactive levothyroxine 75 mcg tablet RxNorm: 004396 TAKE 1 TABLET BY TONE TH EVERY DAY 10/02/2016 10/04/2016 Inactive levothyroxine 75 mcg tablet RxNorm: 303617 1 Tablet(s) PO QD 201610/04/2016 Inactive Restoril 15 mg capsule RxNorm: 076557 1 Capsule(s) PO QHS 08/23/2016 11/15/2016 Inactive levothyroxine 75 mcg tablet RxNorm: 543487 1 Tablet(s) PO QD 201608/19/2016 Inactive levothyroxine 75 mcg tablet RxNorm: 792331 1 Tablet(s) PO QD 201609/09/2016 Inactive levothyroxine 50 mcg capsule RxNorm: 199596 1 Capsule(s) PO QD 06/201608/19/2016 Inactive hydrochlorothiazide 25 mg tablet RxNorm: 948252 1 Tablet(s) PO QD 0 06/23/2016 12/03/2016 Inactive amoxicillin 500 mg tablet RxNorm: 374304 1 Tablet(s) PO TID 016 06/03/2016 Inactive doxycycline hyclate 100 mg capsule RxNorm: 3676895 1 Capsule(s) PO BID 06/03/2016 06/12/2016 Inactive doxycycline hyclate 100 mg capsule RxNorm: 4981681 1 Capsule(s) PO BID 06/03/2016 06/02/2016 Inactive levothyroxine 75 mcg tablet RxNorm: 297526 1 Tablet(s) PO QD 201505/19/2016 Inactive losartan 50 mg tablet RxNorm: 653979 1 TABLET(S) PO BID 04/07/2016 Inactive metoprolol succinate ER 50 mg tablet,extended release 24 hr RxNorm: 767034 1 TABLET(S) PO QHS AND 1/2 TAB IN THE AM--REPLACES 25MG DOSE 04/03/2016 07/27/2016 Inactive Restoril 15 mg capsule RxNorm: 991986 1 Capsule(s) PO QHS as ne eded for sleep 02/24/2016 05/23/2016 Inactive hydrochlorothiazide 12.5 mg tablet RxNorm: 083337 1 Tab let(s) PO QD replaces 25mg dose 01/13/2016 06/22/2016 Inactive metoprolol succinate ER 50 mg tablet,extended release 24 hr RxNorm: 081542 1 Tablet(s) PO QHS and 1/2 tab in the AM--replaces 25mg dose 10/17/2015 04/02/2016 Inactive amlodipine 2.5 mg tablet RxNorm: 245075 1 Tablet(s) PO QHS 10/08/19 16 10/07/2015 Inactive amlodipine 2.5 mg tablet RxNorm: 144073 1 Tablet(s) PO QHS 10/08/19 16 10/16/2015 Inactive losartan 50 mg tablet RxNorm: 127716 1 TABLET(S) PO BID 09/23/2015 Inactive Medrol (Topher) 4 mg tablets in a dose pack RxNorm: 659266 Take as directed 09/03/2015 10/07/2015 Inactive Lasix 40 mg tablet RxNorm: 544306 1 TABLET(S) PO QD PRN FOR SWELLIN G 08/27/2015 12/04/2015 Inactive Lasix 40 mg tablet RxNorm: 589350 1 Tablet(s) PO QD prn for swellin g 08/01/2015 08/26/2015 Inactive losartan 50 mg tablet RxNorm: 754806 1 Tablet(s) PO BID 06/27/2015 Inactive Zyrtec 10 mg tablet RxNorm: 2900935 1 Tablet(s) PO QD 12/05/2015 Active magnesium oxide 400 mg (241.3 mg magnesium) tablet RxNorm: 80882 1 oral 05/25/2022 Active levothyroxine 50 mcg capsule RxNorm: 340443 1 Capsule(s) PO QD 06/201607/07/2016 Inactive sotalol 80 mg tablet RxNorm: 5754339 1/2 Tablet(s) PO BID 09/05/2018 09/04/2018 Inactive melatonin 1 mg tablet RxNorm: 621914 1 Tablet(s) PO QHS as need ed for sleep 12/05/2015 12/04/2015 Inactive levothyroxine 75 mcg tablet RxNorm: 547582 1 Tablet(s) PO 6 day s a week 07/08/2016 07/07/2016 Inactive Vitamin D3 1,000 unit tablet RxNorm: 445865 1 Tablet(s) PO QD 12/0412/04/2015 Inactive sotalol 80 mg tablet RxNorm: 2390838 1 Tablet(s) PO BID 08/30/2017 Inactive Synthroid 75 mcg tablet RxNorm: 788792 2 Tablet(s) PO M, W, F 09/1509/14/2018 Inactive tizanidine 2 mg tablet RxNorm: 683598 1 Tablet(s) PO QHS for spasm 12/17/2016 12/16/2016 Inactive Nasacort AQ 55 mcg nasal spray aerosol RxNorm: 0222964 [place] ANNELIESE AL as needed 12/12/2018 12/11/2018 Inactive fluocinonide 0.05 % topical gel RxNorm: 754448 TOP as needed on gum s 07/28/2016 07/27/2016 Inactive Flonase Allergy Relief 50 mcg/actuation nasal spray,suspensi on RxNorm: 1848888 2 [place] NASAL QHS 10/13/2018 10/12/2018 Inactive Synthroid 50 mcg tablet RxNorm: 417980 1 Tablet(s) PO Tu, Hernandez, Sat, Sun 09/20/2018 09/19/2018 Inactive Osteo Bi-Flex (5-Loxin) 1,500 mg-400 unit-100 mg tablet RxNo rm: 1 Tablet(s) PO QD 12/05/2015 12/04/2015 Inactive hydrochlorothiazide 25 mg tablet RxNorm: 897619 1/2 Tablet(s) PO QA M 01/13/2016 01/12/2016 Inactive metoprolol succinate ER 25 mg tablet,extended release 24 hr RxNorm: 282456 1 Tablet(s) PO QD 10/17/2015 10/16/2015 Inactive promethazine-DM 6.25 mg-15 mg/5 mL oral syrup RxNorm: 932055 5 PO Q6H as needed for cough 09/30/2018 09/29/2018 Inactive Synthroid 50 mcg tablet RxNorm: 770422 1 Tablet(s) PO QD 10/05/2018 0 10/04/2018 Inactive mupirocin 2 % topical ointment RxNorm: 969496 1 Applica tion TOP BID to affected area as needed 05/03/2018 05/02/2018 Inactive hydrochlorothiazide 25 mg tablet RxNorm: 293439 1 Tablet(s) PO QOD 01/13/2016 01/12/2016 Inactive Vitamin D3 1000 units Capsule RxNorm: 1 Capsule(s) PO QD 9 12/11/2018 Inactive levothyroxine 75 mcg tablet RxNorm: 545239 1 Tablet(s) PO QD 201505/07/2016 Inactive potassium chloride ER 10 mEq capsule,extended release RxNorm : 479581 1 Capsule(s) PO QD 12/05/2015 12/04/2015 Inactive aspirin 81 mg tablet RxNorm: 831240 1 Tablet(s) PO QHS 01/22/2020 Inactive Claritin 10 mg tablet RxNorm: 665461 1 Tablet(s) PO QD 12/05/2015 Inactive Vitamin B12 1000mcg Tablet RxNorm: 1/2 Tablet(s) PO QD 12/12/2018 12/11/2018 Inactive temazepam 15 mg capsule RxNorm: 554275 1 Capsule(s) PO QHS 03/15/20 18 03/14/2018 Inactive hydrochlorothiazide 25 mg tablet RxNorm: 306594 1 Tablet(s) PO QAM 12/05/2015 12/04/2015 Inactive sotalol 80 mg tablet RxNorm: 7702615 1/2 Tablet(s) PO QD 09/22/2018 0 09/21/2018 Inactive mupirocin 2 % topical ointment RxNorm: 469823 TOP as needed 017 08/24/2016 Inactive hydrochlorothiazide 25 mg tablet RxNorm: 158656 1/2 Tablet(s) PO QA M 05/25/2017 05/24/2017 Inactive amlodipine 10 mg tablet RxNorm: 883118 1 Tablet(s) PO QD 02/16/2019 0 02/15/2019 Inactive Citracal + D Slow Release 600 mg calcium-500 unit tablet,ext .release RxNorm: 2 Tablet(s) PO QD 02/16/2019 02/15/2019 Inactive triamcinolone acetonide 0.1 % topical cream RxNorm: 5570617 TOP as needed 12/12/2018 12/11/2018 Inactive Restoril 15 mg capsule RxNorm: 860612 1 Capsule(s) PO QHS 02/24/2016 02/23/2016 Inactive hydrochlorothiazide 25 mg tablet RxNorm: 668382 1/2 Tablet(s) PO QO D 01/13/2016 01/12/2016 Inactive promethazine 6.25 mg/5 mL oral syrup RxNorm: 719594 5 M illiliter(s) PO Q6H as needed for cough 09/30/2018 09/29/2018 Inactive Centrum Silver Women 8 mg iron-400 mcg-300 mcg tablet RxNorm : 1 Tablet(s) PO QD 08/30/2017 08/29/2017 Inactive losartan 50 mg tablet RxNorm: 187467 1 Tablet(s) PO QHS 01/04/2017 Inactive levothyroxine 75 mcg tablet RxNorm: 611651 1 Tablet(s) PO 6 day s a week 10/05/2016 10/04/2016 Inactive losartan 50 mg tablet RxNorm: 034426 2 Tablet(s) PO QD 06/27/2015 Inactive Culturelle 10 billion cell capsule RxNorm: 744750 1-2 Capsule(s ) PO QD 05/10/2019 05/09/2019 Inactive Culturelle 10 billion cell capsule RxNorm: 347162 1 Capsule(s) PO Q D 08/30/2017 08/29/2017 Inactive Synthroid 75 mcg tablet RxNorm: 982016 1 Tablet(s) PO MWF 01/18/2017 01/17/2017 Inactive [...] Code Item Item Code Result Date S [facility] Location COMPLETE BLOOD COUNT [id number] WBC 6.5 10e9/L 09/27/19 19 Unknown COMPLETE BLOOD COUNT [id number] RBC 4.22 10e12/L 2018 Unknown COMPLETE BLOOD COUNT [id number] HEMOGLOBIN 13.3 g/dL 09/27/19 19 Unknown COMPLETE BLOOD COUNT [id number] HEMATOCRIT 38.7 % 09/27/19 19 Unknown COMPLETE BLOOD COUNT [id number] MCV 91.7 fL 9 Unknown COMPLETE BLOOD COUNT [id number] MCH 31.5 pg 9 Unknown COMPLETE BLOOD COUNT [id number] MCHC 34.4 g/dL 9 Unknown COMPLETE BLOOD COUNT [id number] PLATELET COUNT 326 10e9/L Unknown COMPLETE BLOOD COUNT 0764491 Mean Plt Volume 8.9 fL Unknown COMPLETE BLOOD COUNT [id number] Neut Auto 69.0 % 9 Unknown COMPLETE BLOOD COUNT 2241894 Lymph Auto 16.5 % 09/27/19 19 Unknown COMPLETE BLOOD COUNT [id number] [place] Auto 8.3 % 9 Unknown COMPLETE BLOOD COUNT [id number] Eos Auto 5.9 % 9 Unknown COMPLETE BLOOD COUNT [id number] RDW 12.2 % 9 Unknown COMPLETE BLOOD COUNT 5422990 Baso Auto 0.3 % 9 Unknown COMPLETE BLOOD COUNT [id number] Neutrophil Abs 4.48 10e9/L Unknown COMPLETE BLOOD COUNT [id number] Lymphocyte Abs 1.07 10e9/L Unknown COMPLETE BLOOD COUNT [id number] Monocyte Abs 0.54 10e9/L 09/06 Unknown COMPLETE BLOOD COUNT [id number] Eosinophil Abs 0.38 10e9/L Unknown COMPLETE BLOOD COUNT [id number] RDW-SD 39.8 fL 9 Unknown COMPLETE BLOOD COUNT [id number] Basophil Abs 0.02 10e9/L 09/06 Unknown GFR CALC 6046426 GFR Non Afr Amr >60 mL/min 12/12/2015 Un known GFR CALC [id number] GFR Afr Amr >60 mL/min 12/12/2015 [place] [address] Glucose 100 mg/dL 12/11 [place] [address] CREATININE 0.78 mg/dL 12/2015 [place] [address] BUN 14 mg/dL 12/11 [place] [address] SODIUM 132 mmol/L 12/2015 [place] [address] POTASSIUM 3.6 mmol/L 12/2015 [place] [address] CHLORIDE 97 mmol/L 12/11 [place] [address] Bicarbonate 28 mmol/L 12/2015 [place] [address] AGAP 7 mmol/L 12/11 [place] [address] CALCIUM 9.3 mg/dL 12/11 [place] [address] Glucose 92 mg/dL 12/04 [place] [address] CREATININE 0.76 mg/dL [place] [address] BUN 8 mg/dL 12/04 [place] [address] SODIUM 133 mmol/L 11/07 [place] [address] POTASSIUM 4.1 mmol/L 11/07 [place] [address] CHLORIDE 97 mmol/L 12/04 [place] [address] Bicarbonate 27 mmol/L [place] [address] AGAP 9 mmol/L 12/04 [place] [address] CALCIUM 9.8 mg/dL 12/04 Unknown GFR CALC [id number] GFR Afr Amr >60 mL/min 12/05/2015 Unknow n COMPREHENSIVE METABOLIC 65622 AST 36 U/L 2015 Unknown COMPREHENSIVE METABOLIC 26543 ALT 41 U/L 2015 Unknown COMPREHENSIVE METABOLIC 22065 BUN 11 mg/dL 2015 Unknown COMPREHENSIVE METABOLIC 74078 ALBUMIN 4.2 g/dL 2015 Unknown COMPREHENSIVE METABOLIC 11141 CHLORIDE 93 mmol/L 2015 Unknown COMPREHENSIVE METABOLIC 03715 Bili Total 1.0 mg/dL 11/24 Unknown COMPREHENSIVE METABOLIC 67441 ALK PHOS 79 U/L 2015 Unknown COMPREHENSIVE METABOLIC 63695 SODIUM 128 mmol/L 11/24 Unknown COMPREHENSIVE METABOLIC 81837 CREATININE 0.65 mg/dL 11/06 Unknown COMPREHENSIVE METABOLIC 08853 CALCIUM 9.4 mg/dL 2015 Unknown COMPREHENSIVE METABOLIC 18575 POTASSIUM 3.7 mmol/L 11/24 Unknown COMPREHENSIVE METABOLIC 98279 Total Protein 6.9 g/dL Unknown COMPREHENSIVE METABOLIC 68762 Glucose 101 mg/dL 2015 Unknown COMPREHENSIVE METABOLIC 52285 Bicarbonate 27 mmol/L 11/06 Unknown COMPREHENSIVE METABOLIC 86245 AGAP 8 mmol/L 2015 Unknown THYROID STIMULATING HORMONE 37301 TSH 2.983 uIU/mL 11/25/2015 Unknown COMPLETE BLOOD COUNT [id number] WBC 9.0 10e9/L 11/25/19 16 Unknown COMPLETE BLOOD COUNT [id number] RBC 3.98 10e12/L 2015 Unknown COMPLETE BLOOD COUNT 2732909 HEMOGLOBIN 12.8 g/dL 11/25/19 16 Unknown COMPLETE BLOOD COUNT [id number] HEMATOCRIT 36.1 % 11/25/19 16 Unknown COMPLETE BLOOD COUNT 0975240 MCV 90.7 fL 6 Unknown COMPLETE BLOOD COUNT 7806916 MCH 32.2 pg 6 Unknown COMPLETE BLOOD COUNT 5597607 MCHC 35.5 g/dL 6 Unknown COMPLETE BLOOD COUNT 8622185 PLATELET COUNT 291 10e9/L Unknown COMPLETE BLOOD COUNT 9450276 Mean Plt Volume 8.8 fL Unknown COMPLETE BLOOD COUNT 8736741 Neut Auto 72.2 % 6 Unknown COMPLETE BLOOD COUNT 9424919 Lymph Auto 19.4 % 11/25/19 16 Unknown COMPLETE BLOOD COUNT 0212212 [place] Auto 7.4 % 6 Unknown COMPLETE BLOOD COUNT 5761756 RDW 11.8 % 6 Unknown COMPLETE BLOOD COUNT 4353374 Eos Auto 0.7 % 6 Unknown COMPLETE BLOOD COUNT 7771108 Baso Auto 0.3 % 6 Unknown COMPLETE BLOOD COUNT 0904261 Neutrophil Abs 6.50 10e9/L Unknown COMPLETE BLOOD COUNT 3837014 Lymphoctye Abs 1.75 10e9/L Unknown COMPLETE BLOOD COUNT 1733897 Monocyte Abs 0.67 10e9/L 11/06 Unknown COMPLETE BLOOD COUNT 1002974 Eosinophil Abs 0.06 10e9/L Unknown COMPLETE BLOOD COUNT [id number] Basophil Abs 0.03 10e9/L 11/06 Unknown COMPLETE BLOOD COUNT 3594629 RDW-SD 38.1 fL 6 Unknown GFR CALC 8036283 GFR Afr Amr >60 mL/min 11/25/2015 Unknow n GFR CALC 2382602 GFR Non Afr Amr >60 mL/min 11/25/2015 Un known Procedures Procedure Codes Date SARSCOV CORONAVIRUS AG IA CPT-4: 34915 01/27/2022 CEFTRIAXONE SODIUM INJECTION CPT-4: J0696 01/27/2022 THER/PROPH/DIAG INJ SC/IM CPT-4: 50062 01/27/2022 URINALYSIS NONAUTO W/O SCOPE CPT-4: 93965 05/12/2021 RML URINE CULTURE/ COLONY COUNT CPT-4: 59133 05/12/20 21 FLU VACC PRSV FREE INC ANTIG 65 AND OLDER CPT-4: 54293 02/27/2021 ADMIN INFLUENZA VIRUS VAC CPT-4: G0008 02/27/2021 FLU VACC PRSV FREE INC ANTIG 65 AND OLDER CPT-4: 45654 02/27/2021 RML URINE CULTURE/ COLONY COUNT CPT-4: 27383 11/12/19 21 URINALYSIS NONAUTO W/O SCOPE CPT-4: 32029 11/11/2020 DESTRUCT PREMALG LESION (Cryosurgery) CPT-4: 72125 RML URINE CULTURE/ COLONY COUNT CPT-4: 37576 02/20/20 20 URINALYSIS NONAUTO W/O SCOPE CPT-4: 17891 02/13/2020 RML URINE CULTURE/ COLONY COUNT CPT-4: 97093 02/13/20 20 CEFTRIAXONE SODIUM INJECTION CPT-4: J0696 02/13/2020 THER/PROPH/DIAG INJ SC/IM CPT-4: 53934 02/13/2020 URINALYSIS NONAUTO W/O SCOPE CPT-4: 79654 11/09/2019 RML URINE CULTURE/ COLONY COUNT CPT-4: 59636 11/09/19 20 CEFTRIAXONE SODIUM INJECTION CPT-4: J0696 05/18/2019 THER/PROPH/DIAG INJ SC/IM CPT-4: 97035 05/18/2019 CEFTRIAXONE SODIUM INJECTION CPT-4: J0696 05/17/2019 THER/PROPH/DIAG INJ SC/IM CPT-4: 81448 05/17/2019 RML URINE CULTURE/ COLONY COUNT CPT-4: 17083 05/08/20 19 THROAT CULTURE CPT-4: 02062 05/08/2019 URINALYSIS NONAUTO W/O SCOPE CPT-4: 10798 04/21/2019 RML URINE CULTURE/ COLONY COUNT CPT-4: 53482 04/21/20 19 CEFTRIAXONE SODIUM INJECTION CPT-4: J0696 04/21/2019 THER/PROPH/DIAG INJ SC/IM CPT-4: 76804 04/21/2019 FLU VACC PRSV FREE INC ANTIG 65 AND OLDER CPT-4: 31020 03/02/2019 FLU VACC PRSV FREE INC ANTIG 65 AND OLDER CPT-4: 40083 03/02/2019 ADMIN INFLUENZA VIRUS VAC CPT-4: G0008 03/02/2019 URINALYSIS NONAUTO W/O SCOPE CPT-4: 87233 02/16/2019 Removal impacted cerumen using irrigation/lavage, unilateral CPT-4: 82617 12/14/2018 UA W/MICR CPT-4: 71262 10/05/2018 ROUTINE VENIPUNCTURE CPT-4: 46519 09/26/2018 RML COMPLETE CBC W/AUTO DIFF WBC CPT-4: 08675 019 CEFTRIAXONE SODIUM INJECTION CPT-4: J0696 09/22/2018 THER/PROPH/DIAG INJ SC/IM CPT-4: 11967 09/22/2018 INFLUENZA ASSAY W/OPTIC CPT-4: 58406 09/22/2018 URINALYSIS NONAUTO W/O SCOPE CPT-4: 25319 09/20/2018 CEFTRIAXONE SODIUM INJECTION CPT-4: J0696 09/20/2018 THER/PROPH/DIAG INJ SC/IM CPT-4: 89206 09/20/2018 RML URINE CULTURE/ COLONY COUNT CPT-4: 17938 09/21/19 19 RML URINE CULTURE/ COLONY COUNT CPT-4: 66068 09/15/19 19 URINALYSIS NONAUTO W/O SCOPE CPT-4: 04127 09/05/2018 RML URINE CULTURE/ COLONY COUNT CPT-4: 80125 09/06/19 19 URINALYSIS NONAUTO W/O SCOPE CPT-4: 73998 04/20/2018 RML URINE CULTURE/ COLONY COUNT CPT-4: 46000 04/20/20 18 CERUM REMOVAL CPT-4: 76115 03/18/2018 FLU VACC PRSV FREE INC ANTIG 65 AND OLDER CPT-4: 50076 03/03/2018 ADMIN INFLUENZA VIRUS VAC CPT-4: G0008 03/03/2018 PRESCRIP TRANSMIT VIA ERX SY CPT-4: G8553 05/25/2017 FLU VACC PRSV FREE INC ANTIG 65 AND OLDER CPT-4: 17671 03/08/2017 ADMIN INFLUENZA VIRUS VAC CPT-4: G0008 03/08/2017 PRESCRIP TRANSMIT VIA ERX SY CPT-4: G8553 01/18/2017 PRESCRIP TRANSMIT VIA ERX SY CPT-4: G8553 11/18/2016 RML URINE CULTURE/ COLONY COUNT CPT-4: 52923 10/27/19 17 URINALYSIS NONAUTO W/O SCOPE CPT-4: 41678 10/26/2016 PRESCRIP TRANSMIT VIA ERX SY CPT-4: G8553 10/08/2016 PRESCRIP TRANSMIT VIA ERX SY CPT-4: G8553 10/05/2016 PRESCRIP TRANSMIT VIA ERX SY CPT-4: G8553 06/23/2016 PRESCRIP TRANSMIT VIA ERX SY CPT-4: G8553 06/03/2016 INFLUENZA ASSAY W/OPTIC CPT-4: 67363 05/26/2016 FLU VACC PRSV FREE INC ANTIG 65 AND OLDER CPT-4: 50764 03/19/2016 ADMIN INFLUENZA VIRUS VAC CPT-4: G0008 03/19/2016 PNEUMOCOCCAL VACC 13 CARLIE IM CPT-4: 08115 01/13/2016 ADMIN PNEUMOCOCCAL VACCINE CPT-4: G0009 01/13/2016 PRESCRIP TRANSMIT VIA ERX SY CPT-4: G8553 01/13/2016 URINALYSIS NONAUTO W/O SCOPE CPT-4: 13291 11/27/2015 RML URINE CULTURE/ COLONY COUNT CPT-4: 15343 11/27/19 16 PRESCRIP TRANSMIT VIA ERX SY [...] 97.9 (F) We ight: 141 lbs Code: 08726-4 08/25/2022 Blood Pressure 1: 124/78 Code: 8480-6 Heart Rate 1: 75 bpm Respiratory Rate: 20 bpm SpO2: 98% Temperature: 36.4 (C) / 97.5 (F) We ight: 134 lbs Code: 49129-4 08/11/2022 Blood Pressure 1: 136/74 Code: 8480-6 Heart Rate 1: 69 bpm Respiratory Rate: 18 bpm SpO2: 97% Temperature: 36.7 (C) / 98.0 (F) We ight: 134 lbs Code: 21374-2 07/28/2022 Blood Pressure 1: 126/74 Code: 8480-6 Heart Rate 1: 74 bpm Respiratory Rate: 20 bpm SpO2: 97% Temperature: 36.4 (C) / 97.5 (F) We ight: 135 lbs Code: 32041-4 07/14/2022 Blood Pressure 1: 130/76 Code: 8480-6 Heart Rate 1: 51 bpm SpO2: 100% Temperature: 36.3 (C) / 97.3 (F) Weight: 130 lbs Code : 88892-1 06/23/2022 Blood Pressure 1: 140/80 Code: 8480-6 Heart Rate 1: 58 bpm Respiratory Rate: 20 bpm SpO2: 98% Temperature: 36.3 (C) / 97.3 (F) We ight: 135 lbs Code: 78049-3 05/25/2022 Blood Pressure 1: 161/82 Code: 8480-6 BMI: 24.3 Code: 81709-8 Heart Rate 1: 72 bpm Height: 5'3" Code: 8302-2 SpO2: 97% Temperature: 3 6.3 (C) / 97.3 (F) Weight: 137 lbs Code: 90701-4 03/19/2022 Blood Pressure 1: 140/82 Code: 8480-6 BMI: 23.2 Code: 78729-8 Heart Rate 1: 56 bpm Height: 5'3" Code: 8302-2 SpO2: 92% Temperature: 3 6.8 (C) / 98.2 (F) Weight: 131 lbs Code: 61473-9 02/16/2022 Blood Pressure 1: 154/82 Code: 8480-6 BMI: 23.6 Code: 48351-2 Heart Rate 1: 64 bpm Height: 5'3" Code: 8302-2 Respiratory Rate: 20 bpm SpO2: 96% Temperature: 36.8 (C) / 98.3 (F) Weight: 133 lbs Code: 98288-0 2022 Blood Pressure 1: 140/74 Code: 8480-6 BMI: 22.5 Code: 24088-8 Heart Rate 1: 54 bpm Height: 5'3" Code: 8302-2 Respiratory Rate: 18 bpm SpO2: 96% Temperature: 36.8 (C) / 98.2 (F) Weight: 127 lbs Code: 43079-6 01/27/2022 Blood Pressure 1: 144/80 Code: 8480-6 Heart Rate 1: 84 bpm Respiratory Rate: 22 bpm SpO2: 96% Temperature: 36.7 (C) / 98.0 (F) We ight: 134 lbs Code: 09287-0 10/28/2021 Blood Pressure 1: 152/82 Code: 8480-6 BMI: 22.8 Code: 96589-1 Heart Rate 1: 68 bpm Height: 5'4" Code: 8302-2 Respiratory Rate: 20 bpm SpO2: 98% Temperature: 36.8 (C) / 98.2 (F) Weight: 133 lbs Code: 61170-6 09/23/2021 Blood Pressure 1: 154/78 Code: 8480-6 Heart Rate 1: 66 bpm Respiratory Rate: 18 bpm SpO2: 97% Temperature: 36.2 (C) / 97.1 (F) We ight: 130 lbs Code: 11757-3 08/21/2021 Blood Pressure 1: 166/78 Code: 8480-6 Heart Rate 1: 76 bpm Respiratory Rate: 20 bpm SpO2: 98% Temperature: 36.5 (C) / 97.7 (F) We ight: 134 lbs Code: 64668-3 07/30/2021 Blood Pressure 1: 146/68 Code: 8480-6 Heart Rate 1: 76 bpm Respiratory Rate: 20 bpm SpO2: 98% Temperature: 36.7 (C) / 98.1 (F) We ight: 135 lbs Code: 36022-3 06/19/2021 Blood Pressure 1: 96/50 Code: 8480-6 Heart Rate 1: 72 bpm Respiratory Rate: 20 bpm SpO2: 97% Temperature: 36.8 (C) / 98.3 (F) Weight: 132 lbs Code: 17167-8 05/08/2021 Blood Pressure 1: 132/74 Code: 8480-6 Heart Rate 1: 72 bpm Respiratory Rate: 20 bpm SpO2: 99% Temperature: 36.8 (C) / 98.2 (F) We ight: 132 lbs Code: 74732-0 04/28/2021 Blood Pressure 1: 132/62 Code: 8480-6 Heart Rate 1: 88 bpm Respiratory Rate: 20 bpm SpO2: 98% Temperature: 36.6 (C) / 97.9 (F) We ight: 141 lbs Code: 23733-9 03/19/2021 Blood Pressure 1: 140/67 Code: 8480-6 Heart Rate 1: 71 bpm Respiratory Rate: 15 bpm SpO2: 99% Temperature: 36.3 (C) / 97.3 (F) We ight: 142 lbs Code: 63790-2 02/06/2021 Blood Pressure 1: 152/74 Code: 8480-6 Heart Rate 1: 80 bpm Respiratory Rate: 20 bpm SpO2: 96% Temperature: 36.7 (C) / 98.0 (F) We ight: 138 lbs Code: 96408-6 12/20/2020 Blood Pressure 1: 112/63 Code: 8480-6 Heart Rate 1: 80 bpm Respiratory Rate: 16 bpm SpO2: 99% Temperature: 36.4 (C) / 97.6 (F) We ight: 136 lbs Code: 80507-6 12/11/2020 Blood Pressure 1: 123/64 Code: 8480-6 BMI: 23.5 Code: 35433-9 Heart Rate 1: 68 bpm Height: 5'4" Code: 8302-2 Respiratory Rate: 15 bpm SpO2: 98% Temperature: 36.2 (C) / 97.2 (F) Weight: 137 lbs Code: 11173-7 11/11/2020 Blood Pressure 1: 154/82 Code: 8480-6 Heart Rate 1: 76 bpm SpO2: 99% Temperature: 36.9 (C) / 98.5 (F) Weight: 136 lbs Code: 19850-4 09/05/2020 Blood Pressure 1: 150/66 Code: 8480-6 Heart Rate 1: 80 bpm Respiratory Rate: 20 bpm SpO2: 99% Temperature: 37.0 (C) / 98.6 (F) We ight: 132 lbs Code: 45370-9 07/29/2020 Blood Pressure 1: 152/72 Code: 8480-6 Heart Rate 1: 84 bpm Respiratory Rate: 20 bpm SpO2: 97% Temperature: 36.8 (C) / 98.2 (F) We ight: 133 lbs Code: 35757-1 06/24/2020 Blood Pressure 1: 112/68 Code: 8480-6 Heart Rate 1: 72 bpm Respiratory Rate: 20 bpm SpO2: 98% Temperature: 36.8 (C) / 98.2 (F) We ight: 130 lbs Code: 08864-7 06/21/2020 Blood Pressure 1: 129/78 Code: 8480-6 He art Rate 1: 81 bpm 02/29/2020 Blood Pressure 1: 136/70 Code: 8480-6 Heart Rate 1: 76 bpm Respiratory Rate: 20 bpm SpO2: 98% Temperature: 36.4 (C) / 97.5 (F) We ight: 130 lbs Code: 26529-9 02/22/2020 Blood Pressure 1: 142/67 Code: 8480-6 Heart Rate 1: 64 bpm Respiratory Rate: 16 bpm SpO2: 98% Temperature: 36.5 (C) / 97.7 (F) We ight: 128 lbs Code: 54659-2 02/13/2020 Blood Pressure 1: 124/80 Code: 8480-6 Heart Rate 1: 61 bpm Respiratory Rate: 15 bpm SpO2: 97% Temperature: 36.2 (C) / 97.1 (F) We ight: Code: 59313-9 2020 Blood Pressure 1: 124/60 Code: 8480-6 Heart Rate 1: 92 bpm Respiratory Rate: 20 bpm SpO2: 97% Temperature: 36.4 (C) / 97.5 (F) We ight: 129 lbs Code: 32170-6 01/22/2020 Blood Pressure 1: 134/54 Code: 8480-6 Heart Rate 1: 72 bpm Respiratory Rate: 20 bpm SpO2: 97% Temperature: 37.1 (C) / 98.7 (F) We ight: 128 lbs Code: 82553-3 12/26/2019 Blood Pressure 1: 124/74 Code: 8480-6 Heart Rate 1: 64 bpm Respiratory Rate: 20 bpm SpO2: 98% Temperature: 37.0 (C) / 98.6 (F) We ight: 126 lbs Code: 29455-4 11/27/2019 Blood Pressure 1: 134/73 Code: 8480-6 Heart Rate 1: 116 bpm Respiratory Rate: 17 bpm SpO2: 97% Temperature: 36.7 (C) / 98.0 (F) We ight: 134 lbs Code: 88738-1 11/09/2019 Blood Pressure 1: 126/68 Code: 8480-6 Heart Rate 1: 92 bpm Respiratory Rate: 20 bpm SpO2: 97% Temperature: 37.2 (C) / 98.9 (F) We ight: 135 lbs Code: 46449-2 10/10/2019 Blood Pressure 1: 117/65 Code: 8480-6 Heart Rate 1: 66 bpm Respiratory Rate: 16 bpm SpO2: 99% Temperature: 36.7 (C) / 98.0 (F) We ight: 130 lbs Code: 41730-8 07/13/2019 Blood Pressure 1: 144/70 Code: 8480-6 BMI: 23.0 Code: 89264-2 Heart Rate 1: 92 bpm Height: 5'4" Code: 8302-2 Respiratory Rate: 20 bpm SpO2: 98% Temperature: 36.8 (C) / 98.2 (F) Weight: 133 lbs Code: 06886-2 05/18/2019 Blood Pressure 1: 122/60 Code: 8480-6 Heart Rate 1: 92 bpm Respiratory Rate: 20 bpm SpO2: 97% Temperature: 37.0 (C) / 98.6 (F) 05/17/2019 Blood Pressure 1: 122/74 Code: 8480-6 Heart Rate 1: 84 bpm Respiratory Rate: 20 bpm SpO2: 98% Temperature: 37.2 (C) / 99.0 (F) We ight: 130 lbs Code: 13319-2 04/24/2019 Blood Pressure 1: 124/64 Code: 8480-6 Heart Rate 1: 93 bpm SpO2: 99% Temperature: 36.8 (C) / 98.3 (F) Weight: 134 lbs Code: 20334-4 04/10/2019 Blood Pressure 1: 128/68 Code: 8480-6 Heart Rate 1: 73 bpm SpO2: 99% Temperature: 37.2 (C) / 98.9 (F) Weight: 134 lbs Code: 21647-7 02/16/2019 Blood Pressure 1: 128/64 Code: 8480-6 Heart Rate 1: 72 bpm Respiratory Rate: 20 bpm SpO2: 97% Temperature: 36.8 (C) / 98.2 (F) We ight: 129 lbs Code: 33493-1 12/20/2018 Blood Pressure 1: 152/70 Code: 8480-6 Heart Rate 1: 87 bpm Respiratory Rate: 20 bpm SpO2: 98% Temperature: 36.9 (C) / 98.5 (F) We ight: 127 lbs Code: 80258-8 12/14/2018 Blood Pressure 1: 122/68 Code: 8480-6 Heart Rate 1: 80 bpm Respiratory Rate: 18 bpm SpO2: 96% Temperature: 36.8 (C) / 98.2 (F) 12/12/2018 Blood Pressure 1: 140/68 Code: 8480-6 Heart Rate 1: 75 bpm Respiratory Rate: 18 bpm SpO2: 97% Temperature: 36.2 (C) / 97.1 (F) We ight: 127 lbs Code: 12709-6 10/19/2018 Blood Pressure 1: 126/64 Code: 8480-6 Heart Rate 1: 88 bpm Respiratory Rate: 20 bpm SpO2: 96% Temperature: 37.1 (C) / 98.8 (F) We ight: 123 lbs Code: 69346-7 10/13/2018 Blood Pressure 1: 132/62 Code: 8480-6 He art Rate 1: 86 bpm 10/05/2018 Blood Pressure 1: 114/58 Code: 8480-6 Heart Rate 1: 72 bpm SpO2: 98% Temperature: 36.9 (C) / 98.5 (F) Weight: 120 lbs Code: 57083-3 09/28/2018 Blood Pressure 1: 126/64 Code: 8480-6 Heart Rate 1: 76 bpm Respiratory Rate: 20 bpm SpO2: 97% Temperature: 37.2 (C) / 98.9 (F) 09/26/2018 Blood Pressure 1: 132/66 Code: 8480-6 Heart Rate 1: 79 bpm Respiratory Rate: 20 bpm SpO2: 97% Temperature: 37.1 (C) / 98.7 (F) We ight: 119 lbs Code: 40945-2 09/23/2018 Blood Pressure 1: 112/64 Code: 8480-6 Heart Rate 1: 85 bpm Respiratory Rate: 20 bpm SpO2: 95% Temperature: 36.9 (C) / 98.5 (F) We ight: 119 lbs 8 oz Code: 92726-3 09/22/2018 Blood Pressure 1: 116/58 Code: 8480-6 Heart Rate 1: 88 bpm Respiratory Rate: 20 bpm SpO2: 96% Temperature: 37.9 (C) / 100. 2 (F) 09/20/2018 Blood Pressure 1: 136/70 Code: 8480-6 Heart Rate 1: 109 bpm Respiratory Rate: 20 bpm SpO2: 98% Temperature: 37.0 (C) / 98.6 (F) We ight: 122 lbs Code: 50019-1 09/15/2018 Blood Pressure 1: 134/62 Code: 8480-6 Heart Rate 1: 68 bpm Respiratory Rate: 20 bpm SpO2: 97% Temperature: 36.8 (C) / 98.2 (F) We ight: 124 lbs Code: 12428-6 09/08/2018 Blood Pressure 1: 132/62 Code: 8480-6 Heart Rate 1: 83 bpm Respiratory Rate: 18 bpm SpO2: 94% Temperature: 36.9 (C) / 98.4 (F) We ight: 123 lbs Code: 68937-1 09/05/2018 Blood Pressure 1: 142/68 Code: 8480-6 Heart Rate 1: 70 bpm Respiratory Rate: 18 bpm SpO2: 98% Temperature: 37.0 (C) / 98.6 (F) We ight: 123 lbs Code: 79901-5 03/18/2018 Blood Pressure 1: 132/62 Code: 8480-6 Heart Rate 1: 71 bpm Respiratory Rate: 18 bpm SpO2: 95% Temperature: 36.7 (C) / 98.1 (F) We ight: 126 lbs Code: 49910-1 03/03/2018 Blood Pressure 1: 148/60 Code: 8480-6 BMI: 22.5 Code: 13223-7 Heart Rate 1: 72 bpm Height: 5'4" Code: 8302-2 Respiratory Rate: 20 bpm SpO2: 96% Temperature: 36.9 (C) / 98.4 (F) Weight: 130 lbs Code: 64186-2 02/16/2018 Blood Pressure 1: 154/70 Code: 8480-6 BMI: 21.8 Code: 04129-6 Heart Rate 1: 72 bpm Height: 5'4" Code: 8302-2 Respiratory Rate: 20 bpm SpO2: 97% Temperature: 36.9 (C) / 98.5 (F) Weight: 126 lbs Code: 13607-7 01/26/2018 Blood Pressure 1: 126/78 Code: 8480-6 BMI: 21.8 Code: 01830-2 Heart Rate 1: 80 bpm Height: 5'4" Code: 8302-2 Respiratory Rate: 20 bpm SpO2: 97% Temperature: 36.6 (C) / 97.8 (F) Weight: 126 lbs Code: 08337-6 11/30/2017 Blood Pressure 1: 168/78 Code: 8480-6 BMI: 22.1 Code: 45369-9 Heart Rate 1: 64 bpm Height: 5'4" Code: 8302-2 Respiratory Rate: 20 bpm SpO2: 96% Temperature: 37.0 (C) / 98.6 (F) Weight: 128 lbs Code: 98660-2 10/20/2017 Blood Pressure 1: 146/70 Code: 8480-6 BMI: 22.1 Code: 97487-2 Heart Rate 1: 72 bpm Height: 5'4" Code: 8302-2 Respiratory Rate: 20 bpm SpO2: 97% Temperature: 36.7 (C) / 98.1 (F) Weight: 128 lbs Code: 35574-2 08/30/2017 Blood Pressure 1: 134/68 Code: 8480-6 BMI: 22.5 Code: 14326-7 Heart Rate 1: 72 bpm Height: 5'4" Code: 8302-2 Respiratory Rate: 20 bpm Temperatu re: 36.9 (C) / 98.4 (F) Weight: 130 lbs Code: 24523-4 05/25/2017 Blood Pressure 1: 144/60 Code: 8480-6 BMI: 22.3 Code: 79020-1 Heart Rate 1: 64 bpm Height: 5'4" Code: 8302-2 Respiratory Rate: 20 bpm SpO2: 95% Temperature: 36.8 (C) / 98.2 (F) Weight: 129 lbs Code: 17673-0 03/22/2017 Blood Pressure 1: 124/70 Code: 8480-6 BMI: 21.4 Code: 80486-1 Heart Rate 1: 64 bpm Height: 5'4" Code: 8302-2 Respiratory Rate: 20 bpm Temperatu re: 36.9 (C) / 98.4 (F) Weight: 124 lbs Code: 93621-3 03/08/2017 Blood Pressure 1: 142/78 Code: 8480-6 He art Rate 1: 64 bpm 01/18/2017 Blood Pressure 1: 136/64 Code: 8480-6 BMI: 21.9 Code: 09911-4 Heart Rate 1: 68 bpm Height: 5'4" Code: 8302-2 Respiratory Rate: 20 bpm SpO2: 96% Temperature: 36.8 (C) / 98.2 (F) Weight: 127 lbs Code: 89129-1 01/11/2017 Blood Pressure 1: 142/60 Code: 8480-6 Heart Rate 1: 60 bpm SpO2: 96% 01/04/2017 Blood Pressure 1: 148/70 Code: 8480-6 He art Rate 1: 68 bpm 12/28/2016 Blood Pressure 1: 132/64 Code: 8480-6 BMI: 21.4 Code: 12089-3 Heart Rate 1: 68 bpm Height: 5'4" Code: 8302-2 SpO2: 98% Weight: 124 lb s Code: 80670-0 12/24/2016 Blood Pressure 1: 138/62 Code: 8480-6 He art Rate 1: 74 bpm 12/16/2016 Blood Pressure 1: 124/64 Code: 8480-6 BMI: 21.4 Code: 79125-9 Heart Rate 1: 66 bpm Height: 5'4" Code: 8302-2 Respiratory Rate: 20 bpm SpO2: 97% Temperature: 36.8 (C) / 98.2 (F) Weight: 124 lbs Code: 34600-1 11/18/2016 Blood Pressure 1: 156/64 Code: 8480-6 BMI: 22.3 Code: 18173-2 Heart Rate 1: 64 bpm Height: 5'4" Code: 8302-2 Respiratory Rate: 20 bpm SpO2: 98% Temperature: 36.6 (C) / 97.8 (F) Weight: 129 lbs Code: 61042-9 11/04/2016 Blood Pressure 1: 112/48 Code: 8480-6 BMI: 21.6 Code: 36381-7 Heart Rate 1: 70 bpm Height: 5'4" Code: 8302-2 Respiratory Rate: 22 bpm SpO2: 98% Temperature: 36.4 (C) / 97.6 (F) Weight: 125 lbs Code: 94798-7 10/27/2016 Blood Pressure 1: 118/54 Code: 8480-6 BMI: 21.8 Code: 40011-6 Heart Rate 1: 64 bpm Height: 5'4" Code: 8302-2 Respiratory Rate: 20 bpm SpO2: 97% Temperature: 36.9 (C) / 98.4 (F) Weight: 126 lbs Code: 89627-7 10/13/2016 Blood Pressure 1: 138/82 Code: 8480-6 Heart Rate 1: 66 bpm Height: Code: 8302-2 Respiratory Rate: 20 bpm SpO2: 97% Temperature: 36 .6 (C) / 97.9 (F) Weight: Code: 43456-3 10/08/2016 Blood Pressure 1: 124/56 Code: 8480-6 BMI: 22.8 Code: 30079-2 Heart Rate 1: 76 bpm Height: 5'4" Code: 8302-2 Respiratory Rate: 20 bpm SpO2: 96% Temperature: 36.8 (C) / 98.3 (F) Weight: 132 lbs Code: 80470-2 10/05/2016 Blood Pressure 1: 126/58 Code: 8480-6 BMI: 22.6 Code: 29787-9 Heart Rate 1: 60 bpm Height: 5'4" Code: 8302-2 Respiratory Rate: 20 bpm Temperatu re: 36.7 (C) / 98.1 (F) Weight: 131 lbs Code: 59344-2 08/25/2016 Blood Pressure 1: 130/64 Code: 8480-6 Heart Rate 1: 60 bpm Respiratory Rate: 20 bpm SpO2: 96% Temperature: 37.0 (C) / 98.6 (F) We ight: 136 lbs Code: 41818-6 07/28/2016 Blood Pressure 1: 104/78 Code: 8480-6 BMI: 23.5 Code: 27863-2 Heart Rate 1: 82 bpm Height: 5'4" Code: 8302-2 Respiratory Rate: 24 bpm SpO2: 98% Temperature: 36.8 (C) / 98.2 (F) Weight: 136 lbs Code: 22866-0 06/25/2016 Blood Pressure 1: 152/66 Code: 8480-6 He art Rate 1: 60 bpm 06/23/2016 Blood Pressure 1: 198/102 Code: 8480-6 Heart Rat e 1: 62 bpm Respiratory Rate: 20 bpm SpO2: 95% Temperature: 36.6 (C) / 97.9 (F) We ight: 137 lbs Code: 23529-1 06/03/2016 Blood Pressure 1: 154/86 Code: 8480-6 BMI: 23.4 Code: 13834-7 Heart Rate 1: 56 bpm Height: 5'6" Code: 8302-2 Respiratory Rate: 20 bpm SpO2: 96% Temperature: 36.7 (C) / 98.1 (F) Weight: 143 lbs Code: 62330-4 05/26/2016 Blood Pressure 1: 124/68 Code: 8480-6 BMI: 23.6 Code: 55741-4 Heart Rate 1: 76 bpm Height: 5'6" Code: 8302-2 Respiratory Rate: 20 bpm SpO2: 96% Temperature: 36.2 (C) / 97.2 (F) Weight: 144 lbs Code: 22309-4 05/20/2016 Blood Pressure 1: 156/58 Code: 8480-6 BMI: 24.5 Code: 41928-5 Heart Rate 1: 64 bpm Height: 5'4" Code: 8302-2 Respiratory Rate: 20 bpm Temperatu re: 36.9 (C) / 98.4 (F) Weight: 142 lbs Code: 42697-6 03/19/2016 Blood Pressure 1: 144/74 Code: 8480-6 BMI: 25.9 Code: 68533-1 Heart Rate 1: 76 bpm Height: 5'4" Code: 8302-2 Respiratory Rate: 20 bpm Temperatu re: 36.8 (C) / 98.2 (F) Weight: 150 lbs Code: 57164-2 01/13/2016 Blood Pressure 1: 152/72 Code: 8480-6 BMI: 26.8 Code: 20966-8 Heart Rate 1: 64 bpm Height: 5'4" Code: 8302-2 Respiratory Rate: 20 bpm Temperatu re: 36.7 (C) / 98.1 (F) Weight: 155 lbs Code: 87705-5 12/12/2015 Blood Pressure 1: 128/68 Code: 8480-6 BMI: 26.3 Code: 37129-8 Heart Rate 1: 64 bpm Height: 5'4" Code: 8302-2 Respiratory Rate: 20 bpm Temperatu re: 36.8 (C) / 98.3 (F) Weight: 152 lbs Code: 43654-4 12/05/2015 Blood Pressure 1: 174/88 Code: 8480-6 BMI: 26.8 Code: 14044-8 Heart Rate 1: 68 bpm Height: 5'4" Code: 8302-2 Respiratory Rate: 20 bpm Temperatu re: 36.8 (C) / 98.2 (F) Weight: 155 lbs Code: 75385-1 11/27/2015 Blood Pressure 1: 188/82 Code: 8480-6 He art Rate 1: 70 bpm 10/21/2015 Blood Pressure 1: 148/80 Code: 8480-6 BMI: 27.5 Code: 76706-5 Heart Rate 1: 64 bpm Height: 5'4" Code: 8302-2 Respiratory Rate: 20 bpm Temperatu re: 36.7 (C) / 98.1 (F) Weight: 159 lbs Code: 31615-6 10/17/2015 Blood Pressure 1: 140/74 Code: 8480-6 BMI: 27.5 Code: 80832-8 Heart Rate 1: 80 bpm Height: 5'4" Code: 8302-2 Respiratory Rate: 20 bpm Temperatu re: 36.8 (C) / 98.2 (F) Weight: 159 lbs Code: 32460-8 10/07/2015 Blood Pressure 1: 174/80 Code: 8480-6 BMI: 27.5 Code: 87343-0 Heart Rate 1: 82 bpm Height: 5'4" Code: 8302-2 Respiratory Rate: 20 bpm SpO2: 97% Temperature: 36.7 (C) / 98.0 (F) Weight: 159 lbs Code: 34682-1 09/03/2015 Blood Pressure 1: 146/68 Code: 8480-6 BMI: 27.3 Code: 92764-1 Heart Rate 1: 82 bpm Height: 5'4" Code: 8302-2 Respiratory Rate: 20 bpm SpO2: 97% Temperature: 36.6 (C) / 97.9 (F) Weight: 158 lbs Code: 83181-9 08/01/2015 Blood Pressure 1: 144/78 Code: 8480-6 BMI: 26.9 Code: 85389-1 Heart Rate 1: 64 bpm Height: 5'3" Code: 8302-2 Respiratory Rate: 20 bpm Temperatu re: 36.6 (C) / 97.9 (F) Weight: 154 lbs Code: 44555-6 06/27/2015 Blood Pressure 1: 152/76 Code: 8480-6 BMI: 26.7 Code: 08790-8 Heart Rate 1: 80 bpm Height: 5'3" Code: 8302-2 Respiratory Rate: 20 bpm Temperatu re: 36.7 (C) / 98.1 (F) Weight: 153 lbs Code: 03002-9 Functional Status No Functional Status data Reason [...] keeps a log of her BPs/ dr silva added amlodipine 2.5 mg tabes on 06/23/22 [...] 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] Cony POOLE [facility] [address] [place] [address] CPT- 4: 67613 10/01/2022 ([id number]) OFFICE/OUTPATIENT VISIT EST Diagnosis: Cervicalgia[ICD10: M54.2] Diagnosis: Labile hypertension[ICD10: R09.89] Diagnosis: Paroxysmal atrial fibrillation[ICD10: I48.0] Diagnosis: Hypothyroidism, unspecified[ICD10: E03.9] Cony POOLE [facility] [address] [place] [address] CPT- 4: 42928 08/25/2022 ([id number]) OFFICE/OUTPATIENT VISIT EST Diagnosis: Dyspnea on exertion[ICD10: R06.09] Diagnosis: Chronic atrial fibrillation[ICD10: I48.20] Diagnosis: Essential hypertension[ICD10: I10] Diagnosis: COPD (chronic obstructive pulmonary disease)[ICD10: J44.9] Cony POOLE [address] [address] CPT-4: 02889 08/11/2022 ([id number]) OFFICE/OUTPATIENT VISIT EST Diagnosis: Essential (primary) hypertension[ICD10: I10] Diagnosis: Edema[ICD10: R60.9] Diagnosis: Bradycardia[ICD10: R00.1] Diagnosis: Atrial fibrillation[ICD10: I48.91] Cony POOLE [address] [address] CPT-4: 63882 07/28/2022 ([id number]) OFFICE/OUTPATIENT VISIT EST Diagnosis: URI (upper respiratory infection)[ICD10: J06.9] Diagnosis: Chronic airway obstruction, not elsewhere classified[ICD10: J44.9] Cony POOLE [address] [address] CPT-4: 86122 07/14/2022 ([id number]) OFFICE/OUTPATIENT VISIT EST Diagnosis: Atrial fibrillation[ICD10: I48.91] Diagnosis: Essential (primary) hypertension[ICD10: I10] Diagnosis: Hypothyroidism[ICD10: E03.9] Cony POOLE [address] [address] CPT-4: 09769 06/23/2022 ([id number]) OFFICE/OUTPATIENT VISIT EST Diagnosis: Essential (primary) hypertension[ICD10: I10] Diagnosis: Chronic atrial fibrillation[ICD10: I48.20] Diagnosis: Chronic airway obstruction, not elsewhere classified[ICD10: J44.9] Diagnosis: Hypothyroidism[ICD10: E03.9] Cony POOLE [address] [address] CPT-4: 38486 05/25/2022 ([id number]) OFFICE/OUTPATIENT VISIT EST Diagnosis: COPD (chronic obstructive pulmonary disease)[ICD10: J44.9] Diagnosis: Essential hypertension[ICD10: I10] Diagnosis: Hypothyroidism[ICD10: E03.9] Diagnosis: Allergic rhinitis[ICD10: J30.9] Diagnosis: Unsteady gait[ICD10: R26.81] Cony POOLE DO [address] [address] CPT-4: 49509 03/19/2022 ([id number]) OFFICE/OUTPATIENT VISIT EST Diagnosis: COPD exacerbation[ICD10: J44.1] Diagnosis: COPD (chronic obstructive pulmonary disease)[ICD10: J44.9] Cony POOLE DO [address] [address] CPT-4: 50826 02/16/2022 ([id number]) OFFICE/OUTPATIENT VISIT EST Diagnosis: COPD exacerbation[ICD10: J44.1] Cony POOLE DO [address] [address] CPT-4: 00490 2022 ([id number]) OFFICE/OUTPATIENT VISIT EST Diagnosis: Contact with and (suspected) exposure to other viral communicable diseases[ICD10: Z20.828] Diagnosis: COPD with acute lower respiratory infection[ICD10: J44.0] Keeley POOLE [address] [address] CPT-4: 17351 01/27/2022 ([id number]) OFFICE/OUTPATIENT VISIT EST Diagnosis: Essential (primary) hypertension[ICD10: I10] Diagnosis: Hypothyroidism, unspecified[ICD10: E03.9] Diagnosis: Chronic obstructive pulmonary disease, unspecified[ICD10: J44.9] Cony POOLE DO [address] [address] CPT-4: 89745 10/28/2021 ([id number]) OFFICE/OUTPATIENT VISIT EST Diagnosis: Essential (primary) hypertension[ICD10: I10] Diagnosis: Atrial fibrillation[ICD10: I48.91] Diagnosis: Edema[ICD10: R60.9] Diagnosis: Mixed hyperlipidemia[ICD10: E78.2] Diagnosis: Hypothyroidism[ICD10: E03.9] Diagnosis: Dyspnea[ICD10: R06.00] Diagnosis: Allergic rhinitis, unspecified[ICD10: J30.9] Cony POOLE [employer] [address] [place] [address] CPT- 4: 52407 09/23/2021 ([id number]) OFFICE/OUTPATIENT VISIT EST Diagnosis: Essential (primary) hypertension[ICD10: I10] Diagnosis: Edema[ICD10: R60.9] Diagnosis: Stasis dermatitis[ICD10: I87.2] Diagnosis: Dyspnea[ICD10: R06.00] Cony Albarran DO [employer] [address] [place] [address] CPT-4: 27411 08/21/2021 ([id number]) OFFICE/OUTPATIENT VISIT EST Diagnosis: Essential (primary) hypertension[ICD10: I10] Diagnosis: Atrial fibrillation[ICD10: I48.91] Diagnosis: Edema[ICD10: R60.9] Cony POOLE [address] [address] CPT-4: 88166 07/30/19 ([id number]) OFFICE/OUTPATIENT VISIT EST Diagnosis: Essential hypertension[ICD10: I10] Diagnosis: 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] Diagnosis: Reactive airway disease[ICD10: J45.909] Diagnosis: Sciatica[ICD10: M54.30] Cony CASTRO [address] [address] CPT-4: 30917 06/19/2021 ([id number]) NURSE/OUTPATIENT VISIT EST Diagnosis: Urinary tract infection[ICD10: N39.0] Cony Colbylea ZARAGOZA [facility] [address] [address] CPT-4: 34856 05/12/2021 ([id number]) OFFICE/OUTPATIENT VISIT EST Diagnosis: Edema leg[ICD10: R60.0] Diagnosis: Recurrent UTI[ICD10: N39.0] 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] Cony POOLE DO [address] [address] CPT-4: 10982 05/08/2021 ([id number]) OFFICE/OUTPATIENT VISIT EST Diagnosis: Cervical radiculopathy[ICD10: M54.12] Diagnosis: 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] Cony POOLE DO [address] [address] CPT- 4: 56180 04/28/2021 ([id number]) OFFICE/OUTPATIENT VISIT EST Diagnosis: Other fatigue[ICD10: R53.83] Diagnosis: Hypothyroidism[ICD10: E03.9] Diagnosis: Vitamin B12 deficiency anemia, unspecified[ICD10: D51.9] Keeley Alex CONY POOLE [address] [address] CPT-4: 32049 03/19/2021 ([id number]) NURSE/OUTPATIENT VISIT EST Diagnosis: Encounter for immunization[ICD10: Z23] Cony POOLE [address] [address] CPT-4: 87243 02/27/2021 ([id number]) OFFICE/OUTPATIENT VISIT EST Diagnosis: Atrial fibrillation[ICD10: I48.91] Diagnosis: Essential (primary) hypertension[ICD10: I10] Diagnosis: Hypothyroidism[ICD10: E03.9] Diagnosis: Lymphadenopathy of right cervical region[ICD10: R59.0] Diagnosis: Osteopenia[ICD10: M85.80] Cony WAY [address] [address] CPT-4: 84033 02/06/2021 ([id number]) OFFICE/OUTPATIENT VISIT EST Diagnosis: Skin lesion of right leg[ICD10: L98.9] Keeley Alex [facility] [address] [place] [address] CPT-4: 91294 12/20/2020 ([id number]) OFFICE/OUTPATIENT VISIT EST Diagnosis: Nontraumatic blister of skin[ICD10: R23.8] Keeley POOLE DO [address] [address] CPT- 4: 58038 12/11/2020 ([id number]) OFFICE/OUTPATIENT VISIT EST Diagnosis: Nocturia[ICD10: R35.1] Diagnosis: Essential hypertension[ICD10: I10] Cony POOLE DO [address] [address] CPT-4: 56531 11/11/2020 ([id number]) OFFICE/OUTPATIENT VISIT EST Diagnosis: Essential hypertension[ICD10: I10] Diagnosis: Paroxysmal atrial fibrillation[ICD10: I48.0] Diagnosis: Hypothyroidism[ICD10: E03.9] Cony POOLE DO [address] [address] CPT-4: 14042 07/29/2020 ([id number]) OFFICE/OUTPATIENT VISIT EST Diagnosis: Dizziness and giddiness[ICD10: R42] Diagnosis: Essential hypertension[ICD10: I10] Conyjeannette OCONNELL DEVIN BOWMANNDER [address] [address] CPT-4: 68682 06/24/2020 ([id number]) OFFICE/OUTPATIENT VISIT EST Diagnosis: Weakness[ICD10: R53.1] Apoorva POOLE DO [facility] [address] [place] [address] CPT-4: 66560 06/21/19 ([id number]) OFFICE/OUTPATIENT VISIT EST Diagnosis: URI (upper respiratory infection)[ICD10: J06.9] Apoorva Lindaimaldi [facility] [address] [place] [address] CPT-4: 28840 03/19/2020 ([id number]) OFFICE/OUTPATIENT VISIT EST Diagnosis: Essential (primary) hypertension[ICD10: I10] Diagnosis: Atrial fibrillation status post cardioversion[ICD10: I48.91] Diagnosis: Right upper lobe pulmonary nodule[ICD10: R91.1] Cony POOLE DO [address] [address] CPT- 4: 04975 02/29/2020 ([id number]) OFFICE/OUTPATIENT VISIT EST Diagnosis: Stasis dermatitis[ICD10: I87.2] Apoorva POOLE DO [address] [address] CPT-4: 67521 02/22/2020 ([id number]) NURSE/OUTPATIENT VISIT EST Diagnosis: Urinary tract infection, site not specified[ICD10: N39.0] Cony POOLE DO [address] [address] CPT-4: 92500 02/20/2020 ([id number]) OFFICE/OUTPATIENT VISIT EST Diagnosis: Urinary tract infection[ICD10: N39.0] Apoorva POOLE DO [address] [address] CPT-4: 39237 02/13/2020 ([id number]) OFFICE/OUTPATIENT VISIT EST Diagnosis: Neck pain[ICD10: M54.2] Diagnosis: Muscle spasm[ICD10: M62.838] Cony POOLE DO [address] [address] CPT-4: 90661 2020 ([id number]) OFFICE/OUTPATIENT VISIT EST Diagnosis: Atrial fibrillation[ICD10: I48.91] Diagnosis: Essential hypertension[ICD10: I10] Diagnosis: Right wrist pain[ICD10: M25.531] Cony POOLE DO [address] [address] CPT-4: 59786 01/22/2020 ([id number]) OFFICE/OUTPATIENT VISIT EST Diagnosis: Paroxysmal atrial fibrillation[ICD10: I48.0] Diagnosis: Essential hypertension[ICD10: I10] Cony OCONNELL DEVIN S. ORENDER DO [address] [address] CPT-4: 42216 12/26/2019 ([id number]) OFFICE/OUTPATIENT VISIT EST Diagnosis: Lung nodule[ICD10: R91.1] Diagnosis: CHF (congestive heart failure)[ICD10: I50.9] Diagnosis: Atrial fibrillation[ICD10: I48.91] Apoorva Rueda DANTEGRETELYAHAIRA BELTRAN S. ORENDER DO [address] [address] CPT-4: 08670 11/27/2019 ([id number]) OFFICE/OUTPATIENT VISIT EST Diagnosis: Urinary tract infection[ICD10: N39.0] Diagnosis: Hypotension[ICD10: I95.9] Cony AVERY AbigailMelina COLBY NDER DO [address] [address] CPT-4: 17603 11/09/2019 ([id number]) OFFICE/OUTPATIENT VISIT EST Diagnosis: Left leg swelling[ICD10: M79.89] Cony AVERY AbigailMelina COLBYNDER DO [address] [address] CPT-4: 67107 10/10/2019 ([id number]) OFFICE/OUTPATIENT VISIT EST Diagnosis: Muscle spasm[ICD10: M62.838] Cony AVERY AbigailMelina ORENDER DO [address] [address] CPT-4: 11059 08/25/2019 ([id number]) OFFICE/OUTPATIENT VISIT EST Diagnosis: Low back pain[ICD10: M54.5] Diagnosis: Sciatica of left side[ICD10: M54.32] Cony CARTER AbigailMelina ORENDER DO [address] [address] CPT-4: 47827 07/13/2019 ([id number]) OFFICE/OUTPATIENT VISIT EST Diagnosis: Pneumonia due to infectious organism[ICD10: J18.9] [facility] [address] [place] [address] CPT- 4: 46932 05/18/2019 ([id number]) OFFICE/OUTPATIENT VISIT EST Diagnosis: Pneumonia due to infectious organism[ICD10: J18.9] Cony POOLE DO [address] [address] CPT- 4: 40816 05/17/2019 ([id number]) NURSE/OUTPATIENT VISIT EST Diagnosis: Urinary tract infection[ICD10: N39.0] Cony POOLE DO [address] [address] CPT-4: 17478 05/08/2019 ([id number]) NURSE/OUTPATIENT VISIT EST Diagnosis: Acute pharyngitis[ICD10: J02.9] Diagnosis: Altered taste[ICD10: R43.2] Cony CONDON DO [address] [address] CPT-4: 18987 05/08/2019 ([id number]) OFFICE/OUTPATIENT VISIT EST Diagnosis: Urinary tract infection, site not specified[ICD10: N39.0] Diagnosis: Stomatitis and mucositis with change of taste[ICD10: K12.1] Cony POOLE DO [address] [address] CPT-4: 43694 04/24/2019 ([id number]) NURSE/OUTPATIENT VISIT EST Diagnosis: Hematuria[ICD10: R31.9] Cony BOWMANND ER DO [address] [address] CPT-4: 53952 04/21/2019 ([id number]) OFFICE/OUTPATIENT VISIT EST Diagnosis: Oral mucositis (ulcerative), unspecified[ICD10: K12.30] Diagnosis: Stomatitis and mucositis with change of taste[ICD10: K12.1] Cony BOWMANNDER DO [address] [address] CPT-4: 86959 04/10/2019 ([id number]) NURSE/OUTPATIENT VISIT EST Diagnosis: FLU VACCINE[ICD10: Z23] Cony Orebonygloria CONY AbigailMelina MIGUEL A CASTRO DO [address] [address] CPT-4: 16228 03/02/2019 ([id number]) OFFICE/OUTPATIENT VISIT EST Diagnosis: Essential (primary) hypertension[ICD10: I10] Diagnosis: Other fatigue[ICD10: R53.83] Diagnosis: Hypothyroidism, unspecified[ICD10: E03.9] Diagnosis: Nocturia[ICD10: R35.1] Cony Solorzano LISA Albarran DO [address] [address] CPT-4: 17516 02/16/2019 ([id number]) NURSE/OUTPATIENT VISIT EST Diagnosis: Essential (primary) hypertension[ICD10: I10] Cony Colbylea AVERY AbigailMelina NGOC DO [address] [address] CPT- 4: 01933 01/24/2019 ([id number]) OFFICE/OUTPATIENT VISIT EST Diagnosis: Acute upper respiratory infection, unspecified[ICD10: J06.9] Apoorva Rueda CONY AbigailMelina NGOC [address] [address] CPT-4: 63118 12/20/2018 ([id number]) OFFICE/OUTPATIENT VISIT EST Diagnosis: Paroxysmal atrial fibrillation[ICD10: I48.0] Diagnosis: Other fatigue[ICD10: R53.83] Diagnosis: Essential (primary) hypertension[ICD10: I10] Diagnosis: Hypothyroidism, unspecified[ICD10: E03.9] Cony Colbylea AVERY AbigailMelina NGOC DO [address] [address] CPT- 4: 70297 12/12/2018 ([id number]) OFFICE/OUTPATIENT VISIT EST Diagnosis: Essential (primary) hypertension[ICD10: I10] Diagnosis: Allergic rhinitis due to pollen[ICD10: J30.1] Cony POOLE DO [address] [address] CPT- 4: 11597 10/19/2018 ([id number]) OFFICE/OUTPATIENT VISIT EST Diagnosis: Allergic rhinitis due to pollen[ICD10: J30.1] Diagnosis: Essential (primary) hypertension[ICD10: I10] Cony POOLE DO [address] [address] CPT- 4: 99199 10/05/2018 ([id number]) OFFICE/OUTPATIENT VISIT EST Diagnosis: Allergic rhinitis due to pollen[ICD10: J30.1] Diagnosis: Other fatigue[ICD10: R53.83] Diagnosis: Hematuria, unspecified[ICD10: R31.9] Cony POOLE DO [address] [address] CPT-4: 04860 09/28/2018 ([id number]) OFFICE/OUTPATIENT VISIT EST Diagnosis: Allergic rhinitis due to pollen[ICD10: J30.1] Diagnosis: Cough[ICD10: R05] Diagnosis: Dermatitis, unspecified[ICD10: L30.9] Diagnosis: Slow transit constipation[ICD10: K59.01] Cony POOLE DO [address] [address] CPT- 4: 02348 09/26/2018 ([id number]) OFFICE/OUTPATIENT VISIT EST Diagnosis: Acute bronchitis, unspecified[ICD10: J20.9] Diagnosis: Other specified respiratory disorders[ICD10: J98.8] Merry Beachjarek POOLE DO [address] [address] CPT- 4: 79451 09/23/2018 ([id number]) OFFICE/OUTPATIENT VISIT EST Diagnosis: Acute bronchitis, unspecified[ICD10: J20.9] Diagnosis: Fever, unspecified[ICD10: R50.9] Cony POOLE DO [address] [address] CPT-4: 75353 09/22/2018 ([id number]) OFFICE/OUTPATIENT VISIT EST Diagnosis: Tachycardia, unspecified[ICD10: R00.0] Diagnosis: Dysuria[ICD10: R30.0] Diagnosis: Personal history of urinary (tract) infections[ICD10: Z87.440] Merry POOLE DO [address] [address] CPT-4: 62520 09/20/2018 ([id number]) OFFICE/OUTPATIENT VISIT EST Diagnosis: Other fatigue[ICD10: R53.83] Diagnosis: Hypothyroidism, unspecified[ICD10: E03.9] Cony POOLE DO [address] [address] CPT- 4: 86856 09/15/2018 ([id number]) NURSE/OUTPATIENT VISIT EST Diagnosis: Urinary tract infection, site not specified[ICD10: N39.0] Cony POOLE [address] [address] CPT-4: 46207 09/14/2018 ([id number]) OFFICE/OUTPATIENT VISIT EST Diagnosis: Chronic fatigue, unspecified[ICD10: R53.82] Diagnosis: Essential (primary) hypertension[ICD10: I10] Diagnosis: Hypothyroidism, unspecified[ICD10: E03.9] Diagnosis: Paroxysmal atrial fibrillation[ICD10: I48.0] Cony POOLE DO [address] [address] CPT- 4: 93517 09/08/2018 ([id number]) OFFICE/OUTPATIENT VISIT EST Diagnosis: Dysuria[ICD10: R30.0] Diagnosis: Personal history of urinary (tract) infections[ICD10: Z87.440] Merry POOLE [address] [address] CPT-4: 99387 09/05/2018 ([id number]) NURSE/OUTPATIENT VISIT EST Diagnosis: Essential (primary) hypertension[ICD10: I10] Diagnosis: Edema, unspecified[ICD10: R60.9] Cony POOLE DO [address] [address] CPT-4: 62437 04/20/2018 ([id number]) OFFICE/OUTPATIENT VISIT EST Diagnosis: FLU VACCINE[ICD10: Z23] Diagnosis: Hypothyroidism, unspecified[ICD10: E03.9] Diagnosis: Essential (primary) hypertension[ICD10: I10] Diagnosis: Localized edema[ICD10: R60.0] Cony POOLE DO [address] [address] CPT-4: 69854 03/03/2018 ([id number]) OFFICE/OUTPATIENT VISIT EST Diagnosis: Atopic dermatitis, unspecified[ICD10: L20.9] Apoorva POOLE DO [address] [address] CPT- 4: 85132 02/16/2018 ([id number]) OFFICE/OUTPATIENT VISIT EST Diagnosis: Pressure ulcer of right heel, stage 1[ICD10: L89.611] Diagnosis: Other fatigue[ICD10: R53.83] Apoorva POOLE DO [address] [address] CPT-4: 66121 01/26/2018 OFFICE/OUTPATIENT VISIT EST Diagnosis: Hypothyroidism, unspecified[ICD10: E03.9] Diagnosis: Essential (primary) hypertension[ICD10: I10] Diagnosis: Localized edema[ICD10: R60.0] Diagnosis: Other fatigue[ICD10: R53.83] Cony POOLE DO [address] [address] CPT-4: 15312 11/30/2017 ([id number]) OFFICE/OUTPATIENT VISIT EST Diagnosis: Other seborrheic keratosis[ICD10: L82.1] Cony POOLE DO [address] [address] CPT- 4: 43943 11/04/2017 ([id number]) OFFICE/OUTPATIENT VISIT EST Diagnosis: Achilles tendinitis, right leg[ICD10: M76.61] Apoorva POOLE DO [address] [address] CPT- 4: 21015 10/20/2017 ([id number]) OFFICE/OUTPATIENT VISIT EST Diagnosis: Essential (primary) hypertension[ICD10: I10] Diagnosis: Hypothyroidism, unspecified[ICD10: E03.9] Diagnosis: Weakness[ICD10: R53.1] Cony Albarran DO [address] [address] CPT-4: 03447 08/30/2017 ([id number]) OFFICE/OUTPATIENT VISIT EST Diagnosis: Hypothyroidism, unspecified[ICD10: E03.9] Diagnosis: Essential (primary) hypertension[ICD10: I10] Diagnosis: Paroxysmal atrial fibrillation[ICD10: I48.0] Cony POOLE DO [address] [address] CPT- 4: 54968 05/25/2017 ([id number]) OFFICE/OUTPATIENT VISIT EST Diagnosis: Essential (primary) hypertension[ICD10: I10] Diagnosis: Hypothyroidism, unspecified[ICD10: E03.9] Cony POOLE DO [address] [address] CPT- 4: 91982 03/22/2017 ([id number]) OFFICE/OUTPATIENT VISIT EST Diagnosis: FLU VACCINE[ICD10: Z23] Cony CASTRO DO [address] [address] CPT-4: 72352 03/08/2017 ([id number]) OFFICE/OUTPATIENT VISIT EST Diagnosis: Essential (primary) hypertension[ICD10: I10] Diagnosis: Hypothyroidism, unspecified[ICD10: E03.9] Cony POOLE DO [employer] [address] [place] [address] CPT- 4: 30481 01/18/2017 ([id number]) OFFICE/OUTPATIENT VISIT EST Diagnosis: Essential (primary) hypertension[ICD10: I10] Diagnosis: Localized edema[ICD10: R60.0] Diagnosis: Hypotension, unspecified[ICD10: I95.9] Cony POOLE DO [employer] [address] [place] [address] CPT-4: 77633 12/16/2016 ([id number]) OFFICE/OUTPATIENT VISIT EST Diagnosis: Hypothyroidism, unspecified[ICD10: E03.9] Diagnosis: Essential (primary) hypertension[ICD10: I10] Cony POOLE DO [employer] [address] [place] [address] CPT- 4: 45831 11/18/2016 ([id number]) OFFICE/OUTPATIENT VISIT EST Diagnosis: Hypotension due to drugs[ICD10: I95.2] Diagnosis: Lymphangitis[ICD10: I89.1] Diagnosis: Hypothyroidism, unspecified[ICD10: E03.9] Cony POOLE DO [employer] [address] [place] [address] CPT- 4: 45661 11/04/2016 ([id number]) OFFICE/OUTPATIENT VISIT EST Diagnosis: Hypotension due to drugs[ICD10: I95.2] Diagnosis: Other fatigue[ICD10: R53.83] Cony POOLE DO [employer] [address] [place] [address] CPT-4: 22098 10/27/2016 ([id number]) OFFICE/OUTPATIENT VISIT EST Diagnosis: Other symptoms and signs involving the genitourinary system[ICD10: R39.89] Cony POOLE DO [employer] [address] [place] [address] CPT-4: 12835 10/26/2016 OFFICE/OUTPATIENT VISIT EST Diagnosis: Venous insufficiency (chronic) (peripheral)[ICD10: I87.2] Diagnosis: Lymphangitis[ICD10: I89.1] Diagnosis: Cellulitis of left lower limb[ICD10: L03.116] Cony BOWMANNDER DO [address] [address] CPT- 4: 19664 10/13/2016 OFFICE/OUTPATIENT VISIT EST Diagnosis: Cellulitis of left lower limb[ICD10: L03.116] Diagnosis: Lymphangitis[ICD10: I89.1] Cony MOCTEZUMA [address] [address] CPT-4: 39541 10/08/2016 ([id number]) OFFICE/OUTPATIENT VISIT EST Diagnosis: Hypothyroidism, unspecified[ICD10: E03.9] Diagnosis: Essential (primary) hypertension[ICD10: I10] Diagnosis: Other fatigue[ICD10: R53.83] Diagnosis: Cellulitis of left lower limb[ICD10: L03.116] Cony STEVENSLINE Jeanine POOLE DO [address] [address] CPT- 4: 21832 10/05/2016 ([id number]) OFFICE/OUTPATIENT VISIT EST Diagnosis: Essential (primary) hypertension[ICD10: I10] Diagnosis: Localized edema[ICD10: R60.0] Diagnosis: Other fatigue[ICD10: R53.83] Cony STEVENSLINE Jeanine POOLE DO [address] [address] CPT-4: 19474 08/25/2016 ([id number]) OFFICE/OUTPATIENT VISIT EST Diagnosis: Essential (primary) hypertension[ICD10: I10] Diagnosis: Hypothyroidism, unspecified[ICD10: E03.9] Diagnosis: Weakness[ICD10: R53.1] Cony Bowmanbonygloria STEVENSCONY Jeanine Albarran DO [address] [address] CPT-4: 49959 07/28/2016 ([id number]) OFFICE/OUTPATIENT VISIT EST Diagnosis: Essential (primary) hypertension[ICD10: I10] Merle Hernandez CONY AbigailMelina NGOC PORTER [address] [address] CPT- 4: 66338 06/23/2016 ([id number]) OFFICE/OUTPATIENT VISIT EST Diagnosis: Cough[ICD10: R05] Diagnosis: Essential (primary) hypertension[ICD10: I10] Merle POOLE [address] [address] CPT- 4: 62451 06/03/2016 ([id number]) OFFICE/OUTPATIENT VISIT EST Diagnosis: Acute upper respiratory infection, unspecified[ICD10: J06.9] Diagnosis: Fever, unspecified[ICD10: R50.9] Merle POOLE [address] [address] CPT-4: 14479 05/26/2016 ([id number]) OFFICE/OUTPATIENT VISIT EST Diagnosis: Essential (primary) hypertension[ICD10: I10] Diagnosis: Paroxysmal atrial fibrillation[ICD10: I48.0] Diagnosis: Venous insufficiency (chronic) (peripheral)[ICD10: I87.2] Diagnosis: Primary insomnia[ICD10: F51.01] Diagnosis: Hypothyroidism, unspecified[ICD10: E03.9] Cony POOLE [address] [address] CPT- 4: 45594 05/20/2016 ([id number]) OFFICE/OUTPATIENT VISIT EST Diagnosis: Pain in right ankle and joints of right foot[ICD10: M25.571] Diagnosis: Venous insufficiency (chronic) (peripheral)[ICD10: I87.2] Diagnosis: FLU VACCINE[ICD10: Z23] Cony CASTRO [address] [address] CPT-4: 99852 03/19/2016 ([id number]) OFFICE/OUTPATIENT VISIT EST Diagnosis: Essential (primary) hypertension[ICD10: I10] Diagnosis: Localized edema[ICD10: R60.0] Diagnosis: Paroxysmal atrial fibrillation[ICD10: I48.0] Diagnosis: PNEUMOCOCCAL VACCINE[ICD10: Z23] Cony POOLE [address] [address] CPT-4: 40999 01/13/2016 ([id number]) OFFICE/OUTPATIENT VISIT EST Diagnosis: Hypo-osmolality and hyponatremia[ICD10: E87.1] Diagnosis: Essential (primary) hypertension[ICD10: I10] Diagnosis: Paroxysmal atrial fibrillation[ICD10: I48.0] Cony POOLE [address] [address] CPT- 4: 57294 12/12/2015 ([id number]) OFFICE/OUTPATIENT VISIT EST Diagnosis: Essential (primary) hypertension[ICD10: I10] Diagnosis: Edema, unspecified[ICD10: R60.9] Diagnosis: Hypo-osmolality and hyponatremia[ICD10: E87.1] Cony POOLE [address] [address] CPT- 4: 14312 12/05/2015 ([id number]) OFFICE/OUTPATIENT VISIT EST Diagnosis: Hypo-osmolality and hyponatremia[ICD10: E87.1] Diagnosis: Hematuria, unspecified[ICD10: R31.9] Cony GRADY[address] [address] CPT-4: 88025 11/27/2015 ([id number]) OFFICE/OUTPATIENT VISIT EST Diagnosis: Essential (primary) hypertension[ICD10: I10] Diagnosis: Edema, unspecified[ICD10: R60.9] Diagnosis: Dizziness and giddiness[ICD10: R42] Merle Hernandez RODNEYDelano PETROS GRADY[address] [address] CPT-4: 07439 10/21/2015 ([id number]) OFFICE/OUTPATIENT VISIT EST Diagnosis: Essential (primary) hypertension[ICD10: I10] Diagnosis: Localized edema[ICD10: R60.0] Diagnosis: Paroxysmal atrial fibrillation[ICD10: I48.0] Cony GRADY[address] [address] CPT- 4: 58836 10/17/2015 ([id number]) OFFICE/OUTPATIENT VISIT EST Diagnosis: Essential (primary) hypertension[ICD10: I10] Diagnosis: Tachycardia, unspecified[ICD10: R00.0] Diagnosis: Hypothyroidism, unspecified[ICD10: E03.9] Diagnosis: Palpitations[ICD10: R00.2] Merle Hernandez CONY Solorzano ERIC RHIANNA [address] [address] CPT-4: 00877 10/07/2015 ([id number]) OFFICE/OUTPATIENT VISIT EST Diagnosis: Acute upper respiratory infection, unspecified[ICD10: J06.9] Merle Hernandez CONY Solorzano COLBYBONYGLORIA [address] [address] CPT-4: 63362 09/03/2015 ([id number]) OFFICE/OUTPATIENT VISIT EST Diagnosis: Essential (primary) hypertension[ICD10: I10] Cony Solorzano COLBYBONYGLORIA [address] [address] CPT- 4: 81702 08/01/2015 OFFICE/OUTPATIENT VISIT NEW Diagnosis: Essential (primary) hypertension[ICD10: I10] Diagnosis: Hypothyroidism, unspecified[ICD10: E03.9] Diagnosis: Family history of malignant neoplasm of breast[ICD10: Z80.3] Cony Solorzano NGOC [address] [address] CPT-4: 91178 06/27/2015 Plan of Care Planned Activity Notes Codes Status Date Visit Diagnosis Plan: Stress and adjustment reaction D iscussion: Trial of effexor XR 37.5mg po q HS Fwup 1month ICD-9 : 309.89 ICD-10 : F43.29 10/01/2022 Appointment: Cony Poole WPtel: [address] [place], [place] [phone] ACUTE ILLNESS 10/01/2022 Visit Diagnosis Plan: Hypothyroidism, [...] : R09.89 08/25/2022 Appointment: Cony Poole WPtel: [phone] US FOLLOW UP 08/25/2022 Care Plan: X-RAY EXAM NECK SPINE 4/5VWS LOINC : 60486-5 Pending 08/25/2022 Visit Diagnosis Plan: Chronic atrial [...] 496 ICD-10 : J44.9 08/11/2022 Appointment[facility]letel[facility] [phone] [phone] [facility] FOLLOW UP 08/11/2022 Appointment: Cony Poole WPtel: [phone] US RESCHEDULED 08/11/2022 Visit Diagnosis Plan: Edema Discussion: Patient stoppe d amlodopine this morning ICD-9 : 782.3 ICD-10 : R60.9 07/28/2022 Visit Diagnosis Plan: Atrial fibrillation Discussion: Following with Dr. Silva Sees Dr. Lopez next month ICD-9 : [...] R00.1 07/28/2022 Appointment: Cony Poole WPtel: [phone] [phone] FOLLOW UP 07/28/2022 Patient Education: hydralazine- [employer] Coupon [id number] Completed 07/28/2022 Patient Education: losartan- [employer] Coupon [id number] Completed 07/28/2022 Visit Diagnosis Plan: URI (upper respiratory infection ) Discussion: Influenza A and B and Covid negative Z-pack Continue budesonide and perforomist and add albuterol at least TID Notify if worsening ICD-9 : 465.9 ICD-10 : J06.9 07/14/2022 Appointment: Con[facility]ooletel[facility] [phone] [phone] [facility] 07/14/2022 Visit Diagnosis Plan: Hypothyroidism Discussion: Ferrer e syntrhoid to 88mcg M-F and 75mcg on Wed and Wednesday and recheck thyroid in 3mos ICD-9 : 244.9 ICD-10 : E03.9 06/23/2022 Visit Diagnosis Plan: Atrial fibrillation Discussion: Has seen Dr. Silva and added low dose amlodopine No ablation indicated at this pointe ICD-9 : 427.31 ICD-10 : I48.91 06/23/2022 Visit Diagnosis Plan: Essential (primary) hypertension Discussion: Add amlodopine should help BP Follow Up: 1 months ICD-9 : 401.9 ICD-10 : I10 06/23/2022 Appointment: Cony Poolel: [phone] [phone] FOLLOW UP 06/23/2022 Visit Diagnosis Plan: Hypothyroidism Discussion: Updat e labs and fwup in 1month ICD-9 : 244.9 ICD-10 : E03.9 05/25/2022 Visit Diagnosis Plan: Chronic airway obstruction, not elsewhere classified Discussion: Stable on SVNs ICD-9 : 496 ICD-10 : J44.9 05/25/2022 Visit Diagnosis Plan: Chronic atrial fibrillation Disc ussion: Going to see Dr. Silva ICD-9 : 427.31 ICD-10 : I48.20 05/25/2022 Visit Diagnosis Plan: Essential (primary) hypertension Discussion: Increase losartan to 50mg po BID Fwup in June as scheduled ICD-9 : 401.9 ICD-10 : I10 05/25/2022 Appointment: Cony Poole WPtel: [phone] ACUTE ILLNESS 05/25/2022 Patient Education: losartan- [employer] Coupon [id number] [email or web address]/samplemd/resources/[email or web address]/[email or web address]-[email or web address]-[email or web address] Completed 05/25/2022 Visit Diagnosis Plan: Essential hypertension [...] E03.9 03/19/2022 Appointment: Cony Poole WPtel: [phone] [phone] US FOLLOW UP 03/19/2022 Visit Diagnosis Plan: COPD exacerbation Discussion: Co ntinue budesonide/performomist and use albuterol prn as rescue Go for COVID booster Flu shot in March Fwup 1month ICD-9 : 491.21 ICD-10 : J44.1 02/16/2022 Appointment: Cony Poole WPtel: [phone] [phone] FOLLOW UP 02/16/2022 Visit Diagnosis Plan: COPD exacerbation Discussion: Co ntinue breztri 2p BID and albuterol prn Will switch to Nebulizer with Budesonide 0.5mg BID and Perforomist 20mcg BID with duoneb q4hrs prn Fwup 2 weeks unless worsening ICD-9 : 491.21 ICD-10 : J44.1 2022 Appointment: Cony Poole WPtel: [phone] [phone] FOLLOW UP 2022 Visit Diagnosis Plan: COPD [...] J44.0 01/27/2022 Appointment: Keeley Johnson WPtel: [phone] [phone] ACUTE ILLNESS 01/27/2022 Patient Education: Patient Medication Summary Completed 01/27/2022 Referral: Soy Rodriguez WPtel: [facility] [address] [id number] 09/30 - lm for office Completed 10/29/2021 [...] E03.9 10/28/2021 Appointment: Cony Poole WPtel: [phone] [phone] US FOLLOW UP 10/28/2021 Visit Diagnosis Plan: Edema [...] : 786.09 ICD-10 : R06.00 09/23/2021 Appointment: oCny Pooletel: [phone] [phone] US FOLLOW UP 09/23/2021 Appointment: Cony Poole WPtel: [phone] [phone] US CANCELED 09/08/2021 Visit Diagnosis Plan: [...] : I87.2 08/21/2021 Appointment: Cony Poole WPtel: [address] [place], [place] [phone] US FOLLOW UP 08/21/2021 Appointment: Keeley Johnson WPtel: [phone] [phone] US CANCELED 08/12/2021 Visit Diagnosis Plan: Essential (primary) hypertension Discussion: Stable ICD-9 : 401.9 ICD-10 : I10 07/30/2021 Visit Diagnosis Plan: Atrial fibrillation Discussion: On cardizem and eliquis and rate controlled and asympotomatic Sees Dr Lopez in 2 weeks ICD-9 : 427.31 ICD-10 : I48.91 07/30/2021 Appointment: Cony Poole WPtel: [address] [place], [place] [phone] US FOLLOW UP 07/30/2021 Appointment: Cony Poole WPtel: [address] [place], [place] [phone] US due to weather CANCELED 07/24/2021 Visit [...] : J45.909 06/19/2021 Appointment: Cony Poole WPtel: [address] [place], [place] [phone] FOLLOW UP 06/19/2021 Appointment: Cony Poole WPtel: [address] [place], [place] [phone] US seen 05/08/21 at 1 pm by doctor as appt opened up CANCELED 05/14/2021 Appointment: Cony Poole WPtel: [address] [place], [place] [phone] UA 05/12/2021 Visit Diagnosis Plan: Recurrent UTI [...] : R60.0 05/08/2021 Appointment: Cony Poole WPtel: [address] [place], [place] [phone] ACUTE ILLNESS 05/08/2021 Visit Diagnosis Plan: Cervical radiculopathy Discussio n: Start PT ICD-9 : 723.4 ICD-10 : M54.12 04/28/2021 Visit Diagnosis Plan: Stress and adjustment reaction D iscussion: Stress Reducers Discussed Discussion: Stress Reducers Discussed meds ICD-9 : 309.89 ICD-10 : F43.29 04/28/2021 Appointment: Cony Poole WPtel: [address] [place], [place] [phone] ACUTE ILLNESS 04/28/2021 Appointment: Cony Poole WPtel: [phone] [phone] US RESCHEDULED 03/25/2021 Visit Diagnosis Plan: Other fatigue Discussion: Will r echeck thyroid labs as previously scheduled, B12, and ferritin level per Dr. Brown- discussed could be causing fatigue. Will f/u after labs or sooner for worsening/concerns. ICD-9 : 780.79 ICD-10 : R53.83 03/19/2021 Appointment: Keeley Johnson WPtel: [phone] [phone] ACUTE ILLNESS 03/19/2021 Patient Education: Patient Medication Summary Completed 03/19/2021 Appointment: Cony Poole WPtel: [address] [place], [place] [phone] US INJECTION 02/27/2021 Visit Diagnosis Plan: Essential [...] I48.91 02/06/2021 Appointment: Cony Poole WPtel: [phone] [phone] ACUTE ILLNESS 02/06/2021 Care Plan: US EXAM OF HEAD AND NECK LOIN C : 90510-3 Pending 02/06/2021 Care Plan: DXA BONE DENSITY AXIAL LOINC : 46264-1 Pending 02/06/2021 Appointment: Keeley Johnson WPtel: [phone] [phone] CANCELED 12/24/2020 Visit Diagnosis Plan: Skin lesion of right leg Discuss ion: Appears to be healing- is smaller, no s/s of infection. Will f/u if does not improve or worsens. ICD-9 : 709.9 ICD-10 : L98.9 12/20/2020 Appointment: Keeley Johnson WPtel: [phone] [phone] OFFICE SURGERY 12/20/2020 Patient Education: Patient Medication [...] : 788.43 ICD-10 : R35.1 11/11/2020 Appointment: oCny Pooletel: [address] [place], [place] [phone] ACUTE ILLNESS 11/11/2020 Appointment: Cony Poole WPtel: [address] [place] [phone] CANCELED 11/11/2020 Visit Diagnosis Plan: Inflamed seborrheic keratosis Di scussion: Cryotherapy as above ICD-9 : 702.11 ICD-10 : L82.0 09/05/2020 Appointment: Cony Poole WPtel: [address] [place], [place] [phone] ACUTE ILLNESS 09/05/2020 Visit Diagnosis Plan: Essential hypertension Discussio n: Stable ICD-9 : 401.9 ICD-10 : I10 07/29/2020 Visit Diagnosis Plan: Paroxysmal atrial fibrillation D iscussion: On eliquis ICD-9 : 427.31 ICD-10 : I48.0 07/29/2020 Visit Diagnosis Plan: Hypothyroidism Discussion: Lab d iscussed Will recheck lab in 2mos ICD-9 : 244.9 ICD-10 : E03.9 07/29/2020 Appointment: Cony Poole WPtel: [address] [place], [place] [phone] US FOLLOW UP 07/29/2020 Visit Diagnosis Plan: Dizziness and giddiness Discussi on: Continue increased dose of Cardizem ER 120mg po BID and monitor BP/pulse Has LINQ device in place Discussed Kardia EKG Follow Up: 1 months ICD-9 : 780.4 ICD-10 : R42 06/24/2020 Appointment: Cony Poole WPtel: [address] [place], [place] [phone] Hospital Follow Up 06/24/2020 Visit Diagnosis Plan: [...] ICD-10 : R53.1 06/21/2020 Appointment: Apoorva Rueda [address] [place] [address] TELEMEDICINE 06/21/2020 Visit Diagnosis Plan: URI (upper respiratory infection ) Discussion: phone visit was completed today. covid order to be sent to for patient to have done tomorrow am. instructed to push fluids and call office with any new or worsening symptoms. to ED with worsening issues. remain quarantine until results are completed. ICD-9 : 465.9 ICD-10 : J06.9 03/19/2020 Appointment: Apoorva Rueda [address] [place], [place] [phone] TELEMEDICINE 03/19/2020 Visit Diagnosis Plan: Atrial fibrillation [...] I10 02/29/2020 Appointment: Con[facility] Poole [facility]Ptel[facility] [phone] [phone] FOLLOW UP 02/29/2020 Care Plan: CT THORAX [...] ICD-10 : I87.2 02/22/2020 Appointment: Apoorva Rueda [address] [place] [address] ACUTE ILLNESS 02/22/2020 Appointment: Cony Poole WPtel: [address] [place], [place] [phone] 02/20/2020 Visit Diagnosis Plan: Urinary tract infection Discussi on: based on patient's age and length of illness, clinical s/s, will give 1 gm rocephin in office. urine sent for culture. push fluids and call office with new or worsening symptoms. ICD-9 : 599.0 ICD-10 : N39.0 02/13/2020 Appointment: Apoorva Rueda [address] [place] [address] ACUTE ILLNESS 02/13/2020 Visit Diagnosis Plan: Neck pain Discussion: Daily stre tches Moist heat Topical muscle rub Can use baclofen 1/2 tab during day and full tab at night ICD-9 : 723.1 ICD-10 : M54.2 2020 Appointment: Cony Poole WPtel: [address] [place], [place] [phone] ACUTE ILLNESS 2020 Visit Diagnosis Plan: Atrial [...] : M25.531 01/22/2020 Appointment: Cony Poole WPtel: [phone] FOLLOW UP 01/22/2020 Visit Diagnosis Plan: Paroxysmal atrial fibrillation D iscussion: Stable with new meds Follow Up: 1 months ICD-9 : 427.31 ICD-10 : I48.0 12/26/2019 Visit Diagnosis Plan: Essential hypertension Discussio n: Stable ICD-9 : 401.9 ICD-10 : I10 12/26/2019 Appointment: Cony Poole WPtel: [address] [phone] [facility] Follow Up 12/26/2019 Appointment: Cony Poole WPtel: [address] [phone] CANCELED 12/25/2019 Visit Diagnosis Plan: Lung nodule [...] ICD-10 : I50.9 11/27/2019 Appointment: Apoorva Rueda [address] [place] [address] FOLLOW UP 11/27/2019 Visit Diagnosis Plan: Hypotension Discussion: Decrease amlodopine to once daily Monitor home BP/pulse and report readings in 2 weeks ICD-9 : 458.9 ICD-10 : I95.9 11/09/2019 Visit Diagnosis Plan: Urinary tract infection Discussi on: Cefdinir Culture urine ICD-9 : 599.0 ICD-10 : N39.0 11/09/2019 Appointment: Mohit Apoorva Damaris [address] [place], [place] [id number] CANCELED 11/09/2019 Appointment: Cony Poole WPtel: [address] [place], [place] [phone] ACUTE ILLNESS 11/09/2019 Patient Education: cefdinir- Optimize[employer] Coupon [id number] https://www.[employer]/samplemd/resources/getResource/61/om4bvf06-390q-4995-p4 Completed 11/09/2019 Visit Diagnosis Plan: Left leg swelling Discussion: St at LLE doppler now ICD-9 : 729.81 ICD-10 : M79.89 10/10/2019 Appointment: Cony Poole WPtel: [facility] [place] [phone] ACUTE ILLNESS 10/10/2019 Visit Diagnosis Plan: Muscle spasm Discussion: Can use tylenol 325mg po TID Topical muscle rub Baclofen 10mg 1/2-1 po q HS for spasm but hold temazepam while taking Notify if worsening or persists Stretches/Moist Heat ICD-9 : 728.85 ICD-10 : M62.838 08/25/2019 Appointment: Cony Poole WPtel: [facility] [place] [phone] TELEMEDICINE 08/25/2019 Patient Education: baclofen- Optimize[employer] Coupon [id number] https://www.[employer]/samplemd/resources/getResource/61/bkjc6607-91xb-4wy2-1t Completed 08/25/2019 Visit Diagnosis Plan: Low back pain Discussion: Check L/S spine x-rays ICD-9 : 724.2 ICD-10 : M54.5 07/13/2019 Visit Diagnosis Plan: Sciatica of left side Discussion : Will likely start with PT pending x-ray results ICD-9 : 724.3 ICD-10 : M54.32 07/13/2019 Appointment: Con[facility] Poole [facility]Ptel[facility] [phone] [phone] [facility] I[facility] 07/13/2019 Care Plan: X-RAY EXAM L-S SPINE 2/3 VWS LOINC : 16835-7 Pending 07/13/2019 Visit Diagnosis Plan: Pneumonia due to infectious orga nism Discussion: Repeat rocephin 1gm IM today Start cefdinir tomorrow To ER this weekend if worsens ICD-9 : 486 ICD-10 : J18.9 05/18/2019 Appointment: Cony Poole WPtel: [phone] [phone] [place] FOLLOW UP 05/18/2019 Patient Education: cefdinir- [employer] Coupon [id number] https://www.[employer]/resources/getResource/61/2r91u76y-38y3-37i5-v2 Completed 05/18/2019 Patient Education: temazepam- [employer] Coupon [id number] https://www.[employer]/resources/getResource/61/kd9y94un-5774-0vo5-8h Completed 05/18/2019 Patient Education: Synthroid- Optimize[employer] Coupon [id number] https://www.[employer]/resources/getResource/61/47811sbe-jd85-9o37-94 Completed 05/18/2019 Patient Education: Cytomel- Optimize[employer] Coupon [id number] https://www.[employer]/resources/getResource/61/ep24zx52-011w-885y-m2 Completed 05/18/2019 Visit Diagnosis Plan: Pneumonia due to infectious orga nism Discussion: Rocephin 1gm IM now Recheck tomorrow ICD-9 : 486 ICD-10 : J18.9 05/17/2019 Appointment: Cony Poole WPtel: [phone] [phone] [place] FOLLOW UP 05/17/2019 Appointment: Cony Poolel: [address] [place], [place] [phone] 05/10/19 1630---see note in chart related to throat culture (km) CANCELED 05/10/2019 Appointment: Cony Poole WPtel: [address] [place], [place] [phone] [facility] 05/08/2019 Appointment: Cony Poole WPtel: [address] [place], [place] [phone] NURSE SERVICES 05/08/2019 Visit Diagnosis Plan: Stomatitis [...] : N39.0 04/24/2019 Appointment: Cony Poole WPtel: [address] [place], [place] [phone] FOLLOW UP 04/24/2019 Patient Education: nystatin- Opt[employer] Coupon [id number] https://www.[employer]/samplemd/resources/getResource/61/r409905s-[email or web address]-r4 Completed 04/24/2019 Appointment: Cony Poole WPtel: [address] [place], [place] [phone] [facility] 04/21/2019 Visit Diagnosis Plan: Stomatitis and mucositis with ch bry of taste Discussion: Diflucan and nystatin susp Discussed oral biopsy ICD-9 : 528.00 ICD-10 : K12.1 04/10/2019 Appointment: Cony Poole WPtel: [address] [place], [place] [phone] ACUTE ILLNESS 04/10/2019 Patient Education: nystatin- Opt[employer] Coupon [id number] https://www.[employer]/samplemd/resources/getResource/61/8qljvz57-25a9-0160-oh Completed 04/10/2019 Appointment: Cony Poole WPtel: [address] [place], [place] [phone] [place] INJECTION 03/02/2019 Patient Education: INFLUENZA VACCINE [facility] Completed 03/02/2019 Visit Diagnosis Plan: Other fatigue [...] : R35.1 02/16/2019 Appointment: Cony Poole WPtel: [address] [place], [place] [phone] ACUTE ILLNESS 02/16/2019 Appointment: Cony Poole WPtel: [address] [place], [place] [phone] NO SHOW - FORGIVEN 02/15/2019 Appointment: Cony Poole WPtel: [address] [place] [phone] BP CHECK 01/24/2019 Visit Diagnosis Plan: Acute upper respiratory infectio n, unspecified Discussion: cefdinir bid for 7 days. instructed to continue with allergy medications daily. call or rtc with new or worsening symptoms. ICD-9 : 465.9 ICD-10 : J06.9 12/20/2018 Appointment: Mohit, Apoorva [address] ACUTE ILLNESS 12/20/2018 Visit Diagnosis Plan: Impacted cerumen, right ear Disc ussion: ear canal cleaned out with lavage. patient tolerated well and had immediate relief of hearing loss. no issues voiced. ICD-9 : 380.4 ICD-10 : H61.21 12/14/2018 Appointment: Apoorva Rueda Damaris [address] [place] [address] ACUTE ILLNESS 12/14/2018 Visit Diagnosis Plan: Essential [...] : I48.0 12/12/2018 Appointment: Cony Poole WPtel: [address] [place], [place] [phone] [place] FOLLOW UP 12/12/2018 Visit Diagnosis Plan: Essential (primary) hypertension Discussion: Stable Patient sees cardiology next week--has been off sotalol since 09/15/18 and BP and pulse have been stable ICD-9 : 401.9 ICD-10 : I10 10/19/2018 Appointment: Cony Poole WPtel: [address] [place], [place] [phone] FOLLOW UP 10/19/2018 Appointment: Cony Poole WPtel: [address] [place], [place] [phone] US BP CHECK 10/13/2018 Visit Diagnosis Plan: Allergic rhinitis due to pollen Discussion: Continue zyrtec ICD-9 : 477.9 ICD-10 : J30.1 10/05/2018 Visit Diagnosis Plan: Essential (primary) hypertension Discussion: Stable Recheck 2 weeks ICD-9 : 401.9 ICD-10 : I10 10/05/2018 Appointment: Cony Poole WPtel: [phone] [phone] FOLLOW UP 10/05/2018 Patient Education: Synthroid- OptimizeRX Coupon [id number] https://www.[employer]/resources/getResource/61/xrr06665-i945-9523-79 Completed 10/05/2018 Visit Diagnosis Plan: Allergic rhinitis due to pollen Discussion: Continue zyrtec Finish prednisone ICD-9 : 477.9 ICD-10 : J30.1 09/28/2018 Visit Diagnosis Plan: Hematuria, unspecified Discussio n: Recheck UA with microscopy in 1 week then fwup ICD-9 : 599.70 ICD-10 : R31.9 09/28/2018 Appointment: Cony Poole WPtel: [facility] [phone] US FOLLOW UP 09/28/2018 Visit Diagnosis [...] : K59.01 09/26/2018 Appointment: Cony Poole WPtel: [phone] [place] FOLLOW UP 09/26/2018 Visit Diagnosis Plan: Other [...] ICD-10 : J20.9 09/23/2018 Appointment: Merry Diaz [facility] FOLLOW UP 09/23/2018 Patient Education: cefdinir- OptimizeRX Coupon [id number] https://www.[employer]/samplemd/resources/getResource/61/7at0v7uk-2951-3u70-p9 Completed 09/23/2018 Visit Diagnosis Plan: Acute bronchitis, unspecified Di scussion: Rocephin today Go for CXR Flu negative Recheck tomorrow ICD-9 : 466.0 ICD-10 : J20.9 09/22/2018 Appointment: Cony Poole WPtel: [address] [place] [phone] US FOLLOW UP 09/22/2018 Visit Diagnosis Plan: [...] ICD-10 : R30.0 09/20/2018 Appointment: Merry Diaz [facility] Jennifer [address] ACUTE ILLNESS 09/20/2018 Visit Diagnosis Plan: Other fatigue Discussion: Tashi magaña Add B12 500mcg daily as B12 in low normal range Fwup 1 week ICD-9 : 780.79 ICD-10 : R53.83 09/15/2018 Visit Diagnosis Plan: Hypothyroidism, unspecified Disc ussion: Decrease Synthroid to 50mcg daily ICD-9 : 244.9 ICD-10 : E03.9 09/15/2018 Appointment: Cony Poole WPtel: [address] [place], [place] [phone] FOLLOW UP 09/15/2018 Appointment: Cony Poole WPtel: [address] [place], [place] [phone] UA 09/14/2018 Visit Diagnosis Plan: Chronic fatigue, unspecified Dis cussion: I think her sotalol may be a big factor so will start with updated lab and if it is normal then will hold sotalol and fwup in 1 week ICD-9 : 780.79 ICD-10 : R53.82 09/08/2018 Appointment: Cony Poole WPtel: [address] [place], [place] [phone] [place] [address] ACUTE ILLNESS 09/08/2018 Visit Diagnosis Plan: Dysuria Discussion: UA- positive for leuks, hematuria, nitrates. Will start patient on Macrobid and culture urine. Will call patient with results of culture. RTC with worsening symptoms, including fever, increased pain, abdominal pain. Patient states understanding. ICD-9 : 788.1 ICD-10 : R30.0 09/05/2018 Appointment: Merry Diaz [address] ACUTE ILLNESS 09/05/2018 Care Plan: RML ASSAY THYROID STIM HORMONE Pending 05/26/2018 Care Plan: RML ASSAY OF FREE THYROXINE Pe nding 05/26/2018 Appointment: Cony Poole WPtel: [address] [place], [place] [phone] 04/20/2018 Appointment: Cony Poole WPtel: [address] [place] [address] BP CHECK 04/13/2018 Visit Diagnosis Plan: Impacted cerumen, right ear Disc ussion: cerumen removed with irrigation and lavage. patient tolerated well and had immediate relief. ICD-9 : 380.4 ICD-10 : H61.21 03/18/2018 Appointment: Apoorva Rueda [address] ACUTE ILLNESS 03/18/2018 Patient Education: Patient [...] I10 03/03/2018 Appointment: Cony Poole WPtel: [phone] [id number] FOLLOW UP 03/03/2018 Patient Education: Patient Medication Summary Completed 03/03/2018 Visit Diagnosis Plan: Atopic dermatitis, unspecified D iscussion: instructed to apply triamcinolone bid for 2 weeks, until follow up. follow with your normal lotion and cover with compression hose. if worsening or no improvement, call clinic. ICD-9 : 691.8 ICD-10 : L20.9 02/16/2018 Appointment: Apoorva Rueda [address] [place] [address] ACUTE ILLNESS 02/16/2018 Patient Education: Patient Medication [...] ICD-10 : L89.611 01/26/2018 Appointment: Apoorva Rueda [address] [place], [place] [phone] ACUTE ILLNESS 01/26/2018 Patient Education: Patient Medication [...] 401.9 ICD-10 : I10 11/30/2017 Appointment: Cony Pooletel: [phone] [place] [phone] FOLLOW UP 11/30/2017 Patient Education: Patient Medication Summary Completed 11/30/2017 Visit Diagnosis Plan: Other seborrheic keratosis Discu ssion: Monitor ICD-9 : 702.19 ICD-10 : L82.1 11/04/2017 Appointment: Cony Pooletel: [phone] [phone] US Consult 11/04/2017 Patient Education: Patient Medication Summary Completed 11/04/2017 Visit Diagnosis Plan: Achilles tendinitis, right leg D iscussion: educated patient on RICE and the importance of performing all these activities. 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 with [...] ICD-10 : M76.61 10/20/2017 Appointment: Apoorva Rueda [address] [place], [place] [id number] ACUTE ILLNESS 10/20/2017 Patient Education: Patient Medication Summary Completed 10/20/2017 Visit Diagnosis Plan: Essential (primary) hypertension Discussion: Stable ICD-9 : 401.9 ICD-10 : I10 08/30/2017 Visit Diagnosis Plan: Weakness Discussion: Check Cervi gerri spine x-ray due to primarily being in upper arms ICD-9 : 780.79 ICD-10 : R53.1 08/30/2017 Appointment: Cony Pooletel: [phone] [phone] US FOLLOW UP 08/30/2017 Patient Education: Patient Medication Summary Completed 08/30/2017 Care Plan: X-RAY EXAM NECK SPINE 4/5VWS LOINC : 36394-4 Pending 08/30/2017 Patient Education: Patient Medication Summary Completed 08/13/2017 Care Plan: DXA BONE DENSITY AXIAL LOINC : 11735-9 Pending 08/13/2017 Patient Education: Patient Medication Summary Completed 07/01/2017 Care Plan: RML COMPREHEN METABOLIC PANEL LOINC : 15230-4 Pending 07/01/2017 Care Plan: RML ASSAY THYROID STIM HORMONE Pending 07/01/2017 Care Plan: RML ASSAY OF FREE THYROXINE Pe nding 07/01/2017 Care Plan: RML LIPID PANEL LOINC : 31558 -1 Pending 07/01/2017 Care Plan: CBC Pending [...] : E03.9 05/25/2017 Appointment: Cony Poole WPtel: [facility]6 [phone] US FOLLOW UP 05/25/2017 Patient Education: Patient [...] : I10 03/22/2017 Appointment: Cony Poole WPtel: [facility]3 [phone] FOLLOW UP 03/22/2017 Patient Education: Patient Medication Summary Completed 03/22/2017 Patient Education: Patient Medication Summary Completed 03/17/2017 Care Plan: RML ASSAY THYROID STIM HORMONE Pending 03/17/2017 Care Plan: RML ASSAY OF FREE THYROXINE Pe nding 03/17/2017 Care Plan: METABOLIC PANEL TOTAL CA LOIN C : 06591-3 Pending 03/17/2017 Appointment: Cony Poole WPtel: [address] [place], [place] [phone] US INJECTION 03/08/2017 Patient Education: Patient Medication Summary Completed 03/08/2017 Visit Diagnosis Plan: Hypothyroidism, unspecified Disc ussion: Increase synthroid to 75mcg daily and recheck 2mos Follow Up: 2 months ICD-9 : 244.9 ICD-10 : E03.9 01/18/2017 Visit Diagnosis Plan: Essential (primary) hypertension Discussion: Stable with current meds ICD-9 : 401.9 ICD-10 : I10 01/18/2017 Appointment: Cony Poole WPtel: [address] [place], [place] [phone] 8/10lm~sl FOLLOW UP 01/18/2017 Patient Education: Patient Medication Summary Completed 01/18/2017 Appointment: Cony Poole WPtel: [address] [place], [place] [phone] BP CHECK 01/11/2017 Patient Education: Patient Medication Summary Completed 01/11/2017 Patient Education: Patient Medication Summary Completed 01/11/2017 Care Plan: RML ASSAY THYROID STIM HORMONE Pending 01/11/2017 Care Plan: RML ASSAY OF FREE THYROXINE Pe nding 01/11/2017 Appointment: Cony Poole WPtel: [address] [place], [place] [phone] BP CHECK 01/04/2017 Patient Education: Patient Medication Summary Completed 01/04/2017 Appointment: Cony Poole WPtel: [phone] BP CHECK 12/28/2016 Patient Education: Patient Medication Summary Completed 12/28/2016 Appointment: Cony Poole WPtel: [phone] [phone] US BP CHECK 12/24/2016 Patient Education: Patient Medication Summary Completed 12/24/2016 Visit Diagnosis Plan: Hypotension, unspecified Discuss ion: Hold cozaar tonight Decrease HCTZ to 12.5mg q AM BP check in 1 week ICD-9 : 458.9 ICD-10 : I95.9 12/16/2016 Visit Diagnosis Plan: Localized edema Discussion: Decr ease HCTZ to 12.5mg q AM ICD-9 : 782.3 ICD-10 : R60.0 12/16/2016 Appointment: Cony Poole WPtel: [phone] ACUTE ILLNESS 12/16/2016 Patient Education: Patient Medication [...] : E03.9 11/18/2016 Appointment: Cony Poole WPtel: [facility]4 [phone] US 11/17 lm ~sl 11/18 confirmed~sl FOLLOW [...] 244.9 ICD-10 : E03.9 11/04/2016 Appointment: Cony Pooletel: [address] [place], [place] [phone] 11/03 confirmed `sl FOLLOW UP 11/04/2016 Patient Education: Patient Medication Summary Completed 11/04/2016 Visit Diagnosis Plan: Hypotension due to drugs Discuss ion: Hydrate Hold Losartan tonight then decrease to 50mg q HS BP check in 1 week ICD-9 : 458.8 ICD-10 : I95.2 10/27/2016 Appointment: Cony Pooletel: [address] [place], [place] [phone] 10/26 Confirmed~sl FOLLOW UP 10/27/2016 Patient Education: Patient Medication Summary Completed 10/27/2016 Appointment: Cony Pooletel: [address] [place], [place] [phone] [facility] 10/26/2016 Patient Education: Patient Medication Summary Completed 10/26/2016 Visit Diagnosis Plan: Cellulitis of left lower limb Di scussion: Finish Clindamycin Follow Up: 2 weeks ICD-9 : 682.6 ICD-10 : L03.116 10/13/2016 Appointment: Cony Pooletel: [address] [place], [place] [phone] 10/12 lm-sp WORK IN 10/13/2016 Patient Education: Patient Medication Summary Completed 10/13/2016 Visit Diagnosis Plan: Cellulitis of left lower limb Di scussion: Change keflex to clindamycin Add prednisone Continue compression socks and elevate ICD-9 : 682.6 ICD-10 : L03.116 10/08/2016 Appointment: Cony Poole: [phone] [phone] [place] 10/07 lm~sl 10/08 confirmed`sl FOLLOW [...] L03.116 10/05/2016 Appointment: Cony Poole WPtel: [phone] [phone] 10/01 confirmed `sl FOLLOW UP 10/05/2016 [...] METABOLIC PANEL TOTAL CA LOIN C : 54395-1 Pending 09/30/2016 Visit Diagnosis Plan: Other fatigue [...] I10 08/25/2016 Appointment: Cony Poole WPtel: [phone] [phone] 08/24 confirmed~sl FOLLOW UP 08/25/2016 Patient Education: Patient Medication Summary Completed 08/25/2016 Appointment: Cony Poole WPtel: [phone] [phone] 07/30 rescheduled~sl RESCHEDULED 08/19/2016 Patient Education: Patient Medication Summary Completed 08/19/2016 Care Plan: RML COMPREHEN METABOLIC PANEL LOINC : 06904-5 Pending 08/19/2016 Care Plan: CBC Pending 08/19/2016 [...] I10 07/28/2016 Appointment: Cony Poole WPtel: [phone] [phone] [place] 07/27 confirmed~sl ACUTE ILLNESS 07/28/2016 Patient Education: Patient Medication Summary Completed 07/28/2016 Patient Education: Patient Medication Summary Completed 07/06/2016 Care Plan: RML ASSAY THYROID STIM HORMONE Pending 07/06/2016 Care Plan: RML ASSAY OF FREE THYROXINE Pe nding 07/06/2016 Appointment: Cony Poole WPtel: [phone] [phone] BP CHECK 06/25/2016 Patient Education: Patient Medication Summary Completed 06/25/2016 Patient Education: Patient Medication Summary Completed 06/25/2016 Care Plan: CBC Pending 06/25/2016 Care Plan: URINALYSIS [place]O W/[place] : 70[address]-5 Pending 06/25/2016 Visit Diagnosis Plan: Essential (primary) hypertension Discussion: Discussed with Dr Poole Increase HCTZ as above Check CMP in 1-2 weeks Patient to call Dr Noble for follow up with him, 1-2 weeks and management of her HTN ICD-9 : 401.9 ICD-10 : I10 06/23/2016 Appointment: Merle Hernandez [address] [place] [address] ACUTE ILLNESS 06/23/2016 Patient Education: Patient Medication [...] plan and agrees 06/03/2016 Appointment: Merle Hernandez Chad5 [facility] ACUTE ILLNESS 06/03/2016 Patient Education: Patient Medication Summary Completed 06/03/2016 Visit Plan: Exam is fairly benign Flu ra n since her symptoms had such a sudden onset - results negative Likely viral URI Supportive care reviewed Monitor closely Follow up PRN 05/26/2016 Appointment: Merle Hernandez [address] [place], [place] [address] ACUTE ILLNESS 05/26/2016 Patient Education: Patient Medication Summary Completed 05/26/2016 Visit Plan: Continue current meds and mo nitor BP Continue temazepam at current dose--discussed risks but patient feels much better since getting good rest Check CBC, CMP, TSH, Free T4 05/20/2016 Appointment: Cony Poole WPtel: [address] [place], [place] [phone] 05/19 confirmed~sl FOLLOW UP 05/20/2016 Patient Education: Patient Medication Summary Completed 05/20/2016 Appointment: Cony Poole WPtel: [address] [place], [place] [phone] US CANCELED 04/07/2016 Visit Plan: Check right ankle x-ray Disc ussed may need veins in right ankle worked on if swelling/pain persist 03/19/2016 Appointment: Cony Poole WPtel: [address] [place], [place] [phone] ACUTE ILLNESS 03/19/2016 Patient Education: Patient Medication Summary Completed 03/19/2016 Visit Plan: Increase HCTZ to 12.5mg po e very day Recheck Chem [address] Noble next week to discuss antiarrhythmic meds Prevnar 13 today 01/13/2016 Appointment: Cony Poole WPtel: [address] [place], [place] [phone] 01/08 confirmed-sp FOLLOW UP 01/13/2016 Patient Education: Patient Medication Summary Completed 01/13/2016 Visit Plan: Continue current meds and mo nitor BP Check Chem 7 12/12/2015 Appointment: Cony Poole WPtel: [address] [place], [place] [phone] 7/6confirmed sl FOLLOW UP 12/12/2015 Patient Education: Patient Medication Summary Completed 12/12/2015 Appointment: Cony Poole WPtel: [address] [place], [place] [phone] US RESCHEDULED 12/10/2015 Visit Plan: Add Restoril 15mg q HS--stuart ent used in hospital with no complications Add back low dose HCTZ at 12.5mg every other day Monitor BP Can hold on nebulizer treatments Check Chem 7 now and recheck 1week 12/05/2015 Appointment: Cony Poole WPtel: [phone] [phone] 12/02 confirmed~sl ER Follow UP 12/05/2015 Patient Education: Patient Medication Summary Completed 12/05/2015 Appointment: Cony Poole WPtel: [phone] [phone] WORK IN 11/28/2015 Visit Plan: Due to patient's symptoms an d high blood pressure I consulted Outpatient orders written for 1L IV fluids with 1G Rocephin and Zofran for nausea. Patient sent to hospital and followup in am. 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 Keep BP log and follow up PRN 10/21/2015 Appointment: [facility] Hernandez [facility] [facility] [facility] 10/21/2015 Patient Education: Patient Medication Summary Completed 10/21/2015 Visit Plan: Stop amlodopine Increase met oprolol to to 50mg q HS and 25mg in AM Switch cozaar to 100mg daily as the insurance does not want to pay for 50mg BID dosing Low Na diet and elevate legs See Cardiology 10/17/2015 Appointment: Cony Poole WPtel: [address] [place], [place] [phone] onfirm~sl FOLLOW UP 10/17/2015 Patient Education: Patient Medication Summary Completed 10/17/2015 Visit Plan: Pt to bring in home BP/HR lo g for review Orders given for CBC, CMP, TSH, MG and 48 holter for further evaluation 10/07/2015 Appointment: Merle Hernandez [address] [place] [address] ACUTE ILLNESS 10/07/2015 Patient Education: Patient Medication Summary Completed 10/07/2015 Visit Plan: Cold vs Allergies Continue z yrtec and nasacort Add steroid pack as above Add plain mucinex, nasal rinses, vicks, humidifier, etc Call if not improving or if worsening - will likely add zpak 09/03/2015 Appointment: Merle Hernandez [address] [place] [address] ACUTE ILLNESS 09/03/2015 Patient Education: Patient Medication Summary Completed 09/03/2015 Visit Plan: BP values reviewed Change me toprolol to 12.5mg po BID BP values in 1month 08/01/2015 Appointment: Cony Poole WPtel: [address] [place], [place] [phone] 07/31 confirmed-SP FOLLOW UP 08/01/2015 Patient Education: Patient Medication Summary Completed 08/01/2015 Visit Plan: Had lab in the fall--shanelle obt ain copy and plan on repeat lab 6mos from last lab then fwup after that Continue current meds Mammogram up-to-date 06/27/2015 Appointment: Cony Poole WPtel: [address] [place], [place] [phone] 06/26/15 appt confirmed cn NEW PATIENT 06/27 Patient Education: Patient Medication Summary Completed 06/27/2015 Referral: Donald Noble WPtel: [facility] [address] [id number] [place] Referral Initiated Instructions Comment Date . [...] . 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
--- OUTSIDE RECORDS SUMMARY | 2022-11-09 15:28 | XMS REPORT | CCD ---
Author Author Tanna Poole D.O. 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 PP Unavailable CCM Unavailable Summary Purpose Interface Exchange Insurance Providers Payer name Policy type / Coverage type Covered alliance party ID Effective Begin Date Effective End Date WPS MEDIC[place] PART B [place] Medicare Part B [id number] 2017 Unknown Inscription [facility] Medicare Part B [id number] Un known Family history Sister Diagnosis Age [...] Unknown Retired 06/27/[address]: 0159139 Former smoker quit 1986 06/27/[address]: 676469341 Never drinks alcohol 2015 Has the patient [...] Start Date Stop Date Status Fill Instructions Effexor XR 37.5 mg capsule,extended release RxNorm: 062741 Take 1 Capsule(s) Oral QPM for mood 10/01/2022 12/29/2022 Active losartan 50 mg tablet RxNorm: 602890 Take 1 Tablet(s) Oral two times a day 09/16/2022 03/14/2023 Active Synthroid 75 mcg tablet RxNorm: 030785 Take 1 Tablet(s) Oral MWF 11/25/2022 Active Synthroid 88 mcg tablet RxNorm: 365051 Take 1 Tablet(s) Oral QD Tu, Th, Sa, [place] 08/28/2022 11/25/2022 Active Synthroid 88 mcg tablet RxNorm: 439238 Take 1 Tablet(s) Oral QD Tu, Th, Sa, [place] 08/25/2022 08/25/2022 Inactive Synthroid 75 mcg tablet RxNorm: 938733 Take 1 Tablet(s) Oral MWF 08/25/2022 Inactive Synthroid 75 mcg tablet RxNorm: 961814 Take 1 Tablet(s) Oral MWF 08/24/2022 Inactive hydralazine 10 mg tablet RxNorm: 342192 Take 1 Tablet(s) Oral t wo times a day 07/28/2022 10/25/2022 Active metoprolol succinate ER 100 mg tablet,extended release 24 hr RxNorm: 206877 Take 1 Tablet(s) Oral QPM 07/28/2022 07/28/2022 Inactive Synthroid 88 mcg tablet RxNorm: 752439 Take 1 Tablet(s) Oral QD Wednesday-Wednesday07/28/2022 08/24/2022 Inactive Synthroid 75 mcg tablet RxNorm: 029355 Take 1 Tablet(s) Oral QA M Sat/Sun 07/28/2022 08/24/2022 Inactive losartan 50 mg tablet RxNorm: 984509 1 Tablet(s) Oral two times a day 07/28/2022 07/28/2022 Inactive Zithromax Z-Topher 250 mg tablet RxNorm: 460672 Take 2 Tab let(s) Oral QD x1 dose then 1 daily 07/14/2022 07/18/2022 Inactive losartan 50 mg tablet RxNorm: 636233 TAKE ONE TABLET BY MOUTH DAILY 07/14/2022 07/27/2022 Inactive Synthroid 88 mcg tablet RxNorm: 320937 Take 1 Tablet(s) Oral QD Wednesday-Wednesday06/23/2022 07/27/2022 Inactive Synthroid 75 mcg tablet RxNorm: 400423 Take 1 Tablet(s) Oral QA M Sat/Sun 06/23/2022 07/27/2022 Inactive Xarelto 15 mg tablet RxNorm: 6152581 Take 1 Tablet(s) Oral QD 06/0906/09/2022 Inactive atorvastatin 20 mg tablet RxNorm: 139843 Take 1 Tablet(s) Oral QD 0 06/09/2022 06/09/2022 Inactive metoprolol succinate ER 100 mg tablet,extended release 24 hr RxNorm: 978247 Take 1 Tablet(s) Oral QD 06/09/2022 06/09/2022 Inactive budesonide 0.5 mg/2 mL suspension for nebulization RxNorm: 3 18000 USE 1 VIAL IN NEBULIZER TWICE DAILY (RINSE MOUTH AFTER EACH TREATMENT) 05/29/2022 No Stop Date Active Perforomist 20 mcg/2 mL solution for nebulization RxNorm: 12 78649 USE 1 VIAL IN NEBULIZER TWICE DAILY (MORNING AND EVENING) 05/29/2022 No Stop Date Acti ve Perforomist 20 mcg/2 mL solution for nebulization RxNorm: 12 96973 USE 1 VIAL IN NEBULIZER TWICE DAILY - morning and evening 05/26/2022 05/26/2022 Inac tive Perforomist 20 mcg/2 mL solution for nebulization RxNorm: 12 58097 USE 1 VIAL IN NEBULIZER TWICE DAILY - morning and evening 05/26/2022 05/26/2022 Inac tive budesonide 0.5 mg/2 mL suspension for nebulization RxNorm: 3 03918 USE 1 VIAL IN NEBULIZER TWICE DAILY - rinse mouth after treatment 05/26/2022 05/26/20 Inactive albuterol sulfate 2.5 mg/3 mL (0.083 %) solution for n ebulization RxNorm: 795090 USE 1 VIAL IN NEBULIZER DAILY - for rescue 05/26/2022 05/26/2022 Inactive budesonide 0.5 mg/2 mL suspension for nebulization RxNorm: 3 88508 USE 1 VIAL IN NEBULIZER TWICE DAILY - rinse mouth after treatment 05/26/2022 05/26/20 22 Inactive budesonide 0.5 mg/2 mL suspension for nebulization RxNorm: 3 85228 USE 1 VIAL IN NEBULIZER TWICE DAILY - rinse mouth after treatment 05/26/2022 05/26/20 22 Inactive losartan 50 mg tablet RxNorm: 965986 Take 1 Tablet(s) Oral two times a day 05/25/2022 05/25/2022 Inactive Synthroid 88 mcg tablet RxNorm: 943029 Take 1 Tablet(s) Oral QD 03/202206/22/2022 Inactive Astepro Allergy 205.5 mcg (0.15 %) nasal spray RxNorm: 00249 84 Take 1 [place] Nasal two times a day in each nostril 03/19/2022 No Stop Date Active Perforomist 20 mcg/2 mL solution for nebulization RxNorm: 12 80109 USE 1 VIAL IN NEBULIZER TWICE DAILY - morning and evening 02/17/2022 02/17/2022 Inac tive Xarelto 15 mg tablet RxNorm: 8422287 Take 1 Tablet(s) Oral QD 02/1706/09/2022 Inactive budesonide 0.5 mg/2 mL suspension for nebulization RxNorm: 3 25225 USE 1 VIAL IN NEBULIZER TWICE DAILY - rinse mouth after treatment 02/05/2022 02/06/20 Inactive Perforomist 20 mcg/2 mL solution for nebulization RxNorm: 12 72716 USE 1 VIAL IN NEBULIZER TWICE DAILY - morning and evening 02/05/2022 02/05/2022 Inac tive albuterol sulfate 2.5 mg/3 mL (0.083 %) solution for n ebulization RxNorm: 312495 USE 1 VIAL IN NEBULIZER DAILY - for rescue 02/05/2022 02/05/2022 Inactive ipratropium bromide 0.02 % solution for inhalation RxNorm: 8 96438 USE 1 VIAL IN NEBULIZER EVERY 4 HOURS - and as needed 02/05/2022 02/16/2022 Inactive albuterol sulfate HFA 90 mcg/actuation aerosol inhaler RxNor m: 9682419 Take 2 Puff(s) Inhalation Q4H as needed as needed 01/27/2022 No Stop Date Activ e Synthroid 88 mcg tablet RxNorm: 400717 Take 1 Tablet(s) Oral QD 01/26/2022 Inactive BRAND NAME ONLY losartan 50 mg tablet RxNorm: 611686 TAKE ONE TABLET BY MOUTH DAILY , REPLACES 25MG DOSE 01/15/2022 07/13/2022 Inactive Symbicort 160 mcg-4.5 mcg/actuation HFA aerosol inhaler RxNo rm: 9113345 2 Puff(s) Inhalation two times a day 10/30/2021 11/28/2021 Inactive Symbicort 160 mcg-4.5 mcg/actuation HFA aerosol inhaler RxNo rm: 7111217 2 Puff(s) Inhalation two times a day 10/30/2021 10/30/2021 Inactive Synthroid 88 mcg tablet RxNorm: 221568 Take 1 Tablet(s) Oral QD 10/29/2021 Inactive Breo Ellipta 200 mcg-25 mcg/dose powder for inhalation RxNor m: 6830724 Inhale 1 Puff(s) Inhalation QD 10/29/2021 10/29/2021 Inactive Breo Ellipta 200 mcg-25 mcg/dose powder for inhalation RxNor m: 9073304 Inhale 1 Puff(s) Inhalation QD 10/29/2021 10/29/2021 Inactive replaces a dvair Flonase Allergy Relief 50 mcg/actuation nasal spray,suspensi on RxNorm: 6360397 2 [place] Nasal every night at bedtime 10/28/2021 10/28/2021 Inactive Synthroid 88 mcg tablet RxNorm: 802909 Take 1 Tablet(s) Oral QD 10/28/2021 Inactive BRAND NAME ONLY fluticasone 113 mcg-salmeterol 14 mcg/actuation breath activated powdr RxNorm: 6989028 Inhale 1 Puff(s) Inhalation QAM 10/28/2021 10/28/2021 Inactive losartan 50 mg tablet RxNorm: 815277 1 Tablet(s) Oral QD replac es 25mg dose 10/20/2021 10/20/2021 Inactive metoprolol succinate ER 100 mg tablet,extended release 24 hr RxNorm: 051523 1 Tablet(s) Oral QD 09/23/2021 06/09/2022 Inactive potassium chloride ER 8 mEq capsule,extended release RxNorm: 878702 Take 1 Capsule(s) Oral QOD with lasix 09/15/2021 03/18/2022 Inactive Synthroid 88 mcg tablet RxNorm: 574609 Take 1 Tablet(s) Oral QD 12/202110/27/2021 Inactive BRAND NAME ONLY potassium chloride ER 8 mEq capsule,extended release RxNorm: 482078 1 Capsule(s) Oral QOD with lasix 09/11/2021 09/11/2021 Inactive metoprolol succinate ER 100 mg tablet,extended release 24 hr RxNorm: 032614 Take 1/2 Tablet(s) Oral QD 08/21/2021 09/22/2021 Inactive Synthroid 88 mcg tablet RxNorm: 342509 Take 1 Tablet(s) Oral QD 07/23/2021 Inactive BRAND NAME ONLY clindamycin HCl 300 mg capsule RxNorm: 991646 Take 1 Ca psule(s) Oral three times a day 07/03/2021 07/09/2021 Inactive clindamycin HCl 300 mg capsule RxNorm: 211548 Take 1 Ca psule(s) Oral three times a day 07/03/2021 07/03/2021 Inactive Synthroid 88 mcg tablet RxNorm: 200038 Take 1 Tablet(s) Oral QD 07/03/2021 Inactive BRAND NAME ONLY0 potassium chloride ER 8 mEq capsule,extended release RxNorm: 161708 1 Capsule(s) Oral QOD with lasix 06/26/2021 09/11/2021 Inactive potassium chloride ER 8 mEq tablet,extended release RxNorm: 695546 Take 2 Tablet(s) Oral two times a day 06/23/2021 06/25/2021 Inactive atorvastatin 20 mg tablet RxNorm: 709954 Take 1 Tablet(s) Oral QD 0 06/19/2021 06/09/2022 Inactive diltiazem CD 300 mg capsule,extended release 24 hr RxNorm: 8 97226 Take 1 Capsule(s) Oral QAM 06/19/2021 08/20/2021 Inactive potassium chloride ER 8 mEq tablet,extended release RxNorm: 286132 Take 2 Tablet(s) Oral two times a day 06/19/2021 06/23/2021 Inactive fluticasone 113 mcg-salmeterol 14 mcg/actuation breath activated powdr RxNorm: 7609968 Inhale 1 Puff(s) Inhalation QAM 06/19/2021 10/27/2021 Inactive furosemide 40 mg tablet RxNorm: 291037 Take 1 Tablet(s) Oral QAM 03/18/2022 Inactive alprazolam 0.25 mg tablet RxNorm: 775494 Take 1 Tablet(s) Oral Q8H as needed 06/19/2021 07/29/2021 Inactive gabapentin 100 mg capsule RxNorm: 480909 Take 2 Capsule (s) Oral every night at bedtime 06/19/2021 07/29/2021 Inactive losartan 25 mg tablet RxNorm: 117460 Take 1 Tablet(s) Oral QD 06/1910/20/2021 Inactive tramadol 50 mg tablet RxNorm: 935185 Take 1 Tablet(s) O ral three times a day as needed 06/19/2021 10/27/2021 Inactive Tylenol Arthritis Pain 650 mg tablet,extended release RxNorm : 7657679 Take 1 Tablet(s) Oral four times a day 05/05/2021 03/18/2022 Inactive Synthroid 88 mcg tablet RxNorm: 802614 Take 1 Tablet(s) Oral QD 04/30/2021 Inactive BRAND NAME ONLY0 Synthroid 88 mcg tablet RxNorm: 285703 1 Tablet(s) Oral QD 04/29/20 21 04/29/2021 Inactive Synthroid 88 mcg tablet RxNorm: 120240 1 Tablet(s) Oral QD 04/29/20 21 04/29/2021 Inactive magnesium oxide 400 mg (241.3 mg magnesium) tablet RxNorm: 1 59194 1 Tablet(s) Oral every night at bedtime 04/03/2021 No Stop Date Active Vitamin B12 1000mcg Tablet RxNorm: Take 1/2 Tablet(s) Oral QD 04/03/2021 No Stop Date Active aspirin 81 mg capsule RxNorm: 358900 1 Capsule(s) Oral QD No Stop Date Active doxazosin 1 mg tablet RxNorm: 165390 1 Tablet(s) Oral QPM 03/19/2021 04/02/2021 Inactive Cartia XT 240 mg capsule,extended release RxNorm: 463706 Take 1 Capsule(s) Oral QD 02/06/2021 06/18/2021 Inactive fluticasone propionate 50 mcg/actuation nasal spray,suspensi on RxNorm: 4753876 SHAKE LIQUID AND USE 2 SPRAYS IN EACH NOSTRIL EVERY NIGHT AT BEDTIME 12/19/2020 01/17/2021 Inactive diltiazem 120 mg tablet RxNorm: 185820 1 Tablet(s) Oral QD 12/12/1902/05/2021 Inactive Flonase Allergy Relief 50 mcg/actuation nasal spray,suspensi on RxNorm: 1691978 2 [place] Nasal every night at bedtime 11/21/2020 11/21/2020 Inactive diltiazem 120 mg tablet RxNorm: 249994 Take 1 Tablet(s) Oral tw o times a day 11/11/2020 12/10/2020 Inactive oxybutynin chloride 5 mg tablet RxNorm: 919369 Take 1 T ablet(s) Oral every night at bedtime for overactive bladder 11/11/2020 11/11/2020 Inactive oxybutynin chloride 5 mg tablet RxNorm: 869692 Take 1 T ablet(s) Oral every night at bedtime for overactive bladder 11/11/2020 11/11/2020 Inactive oxybutynin chloride 5 mg tablet RxNorm: 171037 TAKE 1 T ABLET BY MOUTH EVERY NIGHT AT BEDTIME FOR OVERACTIVE BLADDER 11/11/2020 02/05/2021 Inactive Patient requests 90 days supply MagOx 400 mg (241.3 mg magnesium) tablet RxNorm: 310037 TAKE 1 TABLET BY MOUTH EVERY OTHER DAY 10/28/2020 02/05/2021 Inactive Synthroid 75 mcg tablet RxNorm: 484451 TAKE 1 TABLET BY MOUTH EVERY DAY DIRECTED 09/06/2020 04/29/2021 Inactive diltiazem CD 120 mg capsule,extended release 24 hr RxNorm: 8 14106 1 Tablet(s) Oral QD 09/05/2020 11/10/2020 Inactive Synthroid 75 mcg tablet RxNorm: 821979 TAKE 1 TABLET BY MOUTH EVERY DAY DIRECTED 09/03/2020 09/05/2020 Inactive Synthroid 75 mcg tablet RxNorm: 163084 TAKE 1 TABLET BY MOUTH EVERY DAY DIRECTED 09/03/2020 09/02/2020 Inactive MagOx 400 mg (241.3 mg magnesium) tablet RxNorm: 002063 1 Table t(s) Oral QOD 07/30/2020 11/10/2020 Inactive MagOx 400 mg (241.3 mg magnesium) tablet RxNorm: 431059 1 Table t(s) Oral QOD 07/29/2020 07/29/2020 Inactive diltiazem CD 120 mg capsule,extended release 24 hr RxNorm: 8 17086 1 Tablet(s) Oral two times a day 07/29/2020 09/04/2020 Inactive diltiazem CD 120 mg capsule,extended release 24 hr RxNorm: 8 69625 1 Tablet(s) Oral two times a day 07/04/2020 07/03/2020 Inactive diltiazem CD 120 mg capsule,extended release 24 hr RxNorm: 8 58316 1 Tablet(s) Oral two times a day 07/04/2020 07/28/2020 Inactive Eliquis 5 mg tablet RxNorm: 1973129 TAKE 1 TABLET BY MOUTH TWICE DAILY 06/10/2020 02/16/2022 Inactive diltiazem CD 120 mg capsule,extended release 24 hr RxNorm: 8 82899 TAKE 1 CAPSULE BY MOUTH DAILY 06/10/2020 06/09/2020 Inactive Eliquis 5 mg tablet RxNorm: 2056561 TAKE 1 TABLET BY MOUTH TWICE DAILY 06/10/2020 06/09/2020 Inactive diltiazem CD 120 mg capsule,extended release 24 hr RxNorm: 8 12088 TAKE 1 CAPSULE BY MOUTH DAILY 06/10/2020 07/03/2020 Inactive Synthroid 75 mcg tablet RxNorm: 628679 TAKE 1 TABLET BY MOUTH EVERY DAY DIRECTED 06/10/2020 09/02/2020 Inactive Flonase Allergy Relief 50 mcg/actuation nasal spray,suspensi on RxNorm: 6332363 2 [place] Nasal every night at bedtime 04/26/2020 04/26/2020 Inactive Vitamin D3 25 mcg (1,000 unit) capsule RxNorm: 903436 3 Capsule (s) Oral QD 04/22/2020 No Stop Date Active MagOx 400 mg (241.3 mg magnesium) tablet RxNorm: 356725 1 Table t(s) Oral QOD 04/22/2020 04/21/2020 Inactive MagOx 400 mg (241.3 mg magnesium) tablet RxNorm: 091240 1 Table t(s) Oral QOD 04/22/2020 07/21/2020 Inactive prednisone 10 mg tablet RxNorm: 751073 1 Tablet(s) Oral two norma es a day 03/22/2020 03/27/2020 Inactive Eliquis 5 mg tablet RxNorm: 0404779 TAKE 1 TABLET BY MOUTH TWICE DAILY 03/15/2020 06/09/2020 Inactive Synthroid 75 mcg tablet RxNorm: 961442 TAKE 1 TABLET BY MOUTH EVERY DAY DIRECTED 03/15/2020 06/09/2020 Inactive furosemide 20 mg tablet RxNorm: 111679 1 Tablet(s) Oral QAM as needed 03/14/2020 06/20/2020 Inactive diltiazem CD 120 mg capsule,extended release 24 hr RxNorm: 8 88158 TAKE 1 CAPSULE BY MOUTH DAILY 03/14/2020 06/09/2020 Inactive amiodarone 200 mg tablet RxNorm: 102227 TAKE 1 TABLET BY MOUTH SIMON Y 03/14/2020 06/23/2020 Inactive potassium chloride ER 20 mEq tablet,extended release RxNorm: 271841 1 Tablet(s) Oral two times a day as needed 02/29/2020 06/20/2020 Inactive furosemide 20 mg tablet RxNorm: 726645 1 Tablet(s) Oral QAM as needed 02/29/2020 03/13/2020 Inactive Macrobid 100 mg capsule RxNorm: 736910 1 Capsule(s) Oral two ti mes a day 02/15/2020 02/18/2020 Inactive Macrobid 100 mg capsule RxNorm: 928633 1 Capsule(s) Oral two ti mes a day 02/15/2020 02/14/2020 Inactive magnesium oxide 400 mg (241.3 mg magnesium) tablet RxNorm: 1 49739 TAKE 1/2 TABLET BY MOUTH EVERY DAY 01/30/2020 02/21/2020 Inactive Flonase Allergy Relief 50 mcg/actuation nasal spray,suspensi on RxNorm: 0592741 2 [place] Nasal every night at bedtime 01/22/2020 04/25/2020 Inactive furosemide 20 mg tablet RxNorm: 284468 1 Tablet(s) Oral QOD 020 02/12/2020 Inactive potassium chloride ER 20 mEq tablet,extended release RxNorm: 341923 1 Tablet(s) Oral two times a day 01/04/2020 02/12/2020 Inactive potassium chloride ER 20 mEq tablet,extended release RxNorm: 085010 TAKE 1 TABLET BY MOUTH TWICE DAILY 01/03/2020 01/03/2020 Inactive diltiazem CD 120 mg capsule,extended release 24 hr RxNorm: 8 03271 1 Capsule(s) Oral QD 12/26/2019 03/13/2020 Inactive Colace 100 mg capsule RxNorm: 8477152 2 Capsule(s) Oral QD 12/26/19 20 03/18/2022 Inactive Flonase Allergy Relief 50 mcg/actuation nasal spray,suspensi on RxNorm: 0281268 2 SPRAY NASAL QHS 12/26/2019 12/28/2019 Inactive amiodarone 200 mg tablet RxNorm: 965944 1 Tablet(s) Oral QD 020 01/21/2020 Inactive Eliquis 5 mg tablet RxNorm: 9615772 1 Tablet(s) Oral two times a da y 12/26/2019 03/14/2020 Inactive potassium chloride ER 20 mEq tablet,extended release RxNorm: 291681 2 Tablet(s) Oral QD with furosemide 12/20/2019 01/21/2020 Inactive furosemide 20 mg tablet RxNorm: 567272 1 Tablet(s) Oral QAM 020 01/18/2020 Inactive Synthroid 75 mcg tablet RxNorm: 400007 1 Tablet(s) Oral QD 12/18/19 20 02/16/2020 Inactive potassium chloride ER 20 mEq tablet,extended release RxNorm: 694136 2 Tablet(s) Oral QOD with furosemide 11/29/2019 12/19/2019 Inactive furosemide 40 mg tablet RxNorm: 043091 1 Tablet(s) Oral QOD 020 12/19/2019 Inactive amlodipine 5 mg tablet RxNorm: 929494 1 Tablet(s) Oral every ni ght at bedtime 11/27/2019 12/18/2019 Inactive Lasix 40 mg tablet RxNorm: 1 [...] 11/22/2019 Inactive cefdinir 300 mg capsule RxNorm: 518593 1 Capsule(s) Oral two ti mes a day 11/09/2019 11/16/2019 Inactive temazepam 15 mg capsule RxNorm: 588491 TAKE 1 CAPSULE B Y MOUTH EVERY NIGHT AT BEDTIME 11/06/2019 12/18/2019 Inactive magnesium oxide 400 mg (241.3 mg magnesium) tablet RxNorm: 1 65638 TAKE 1/2 TABLET BY MOUTH EVERY DAY 11/03/2019 2020 Inactive Synthroid 75 mcg tablet RxNorm: 229340 TAKE 1 TABLET BY MOUTH E VERY DAY 10/16/2019 12/17/2019 Inactive potassium chloride ER 20 mEq tablet,extended release RxNorm: 839756 TAKE 1 TABLET BY MOUTH TWICE DAILY 10/02/2019 11/28/2019 Inactive baclofen 10 mg tablet RxNorm: 846642 1/2-1 Tablet(s) Or al QPM as needed for muscle spasm 09/21/2019 01/21/2020 Inactive hydrochlorothiazide 25 mg tablet RxNorm: 312566 TAKE 1 TABLET BY MOUTH EVERY MORNING 09/21/2019 11/26/2019 Inactive amlodipine 5 mg tablet RxNorm: 054360 TAKE 1 TABLET BY MOUTH TW ICE DAILY 09/06/2019 11/27/2019 Inactive magnesium oxide 400 mg (241.3 mg magnesium) tablet RxNorm: 1 09909 TAKE 1/2 TABLET BY MOUTH EVERY DAY 09/06/2019 11/02/2019 Inactive temazepam 15 mg capsule RxNorm: 081162 TAKE 1 CAPSULE B Y MOUTH EVERY DAY AT BEDTIME 09/04/2019 11/05/2019 Inactive baclofen 10 mg tablet RxNorm: 514837 1/2-1 Tablet(s) Or al QPM as needed for muscle spasm 08/25/2019 09/20/2019 Inactive Synthroid 75 mcg tablet RxNorm: 706839 TAKE 1 TABLET BY MOUTH E VERY DAY 08/17/2019 10/15/2019 Inactive Cytomel 5 mcg tablet RxNorm: 407080 TAKE 1 TABLET BY MOUTH EVERY DA Y 08/13/2019 01/21/2020 Inactive potassium chloride ER 20 mEq tablet,extended release RxNorm: 294229 TAKE 1 TABLET BY MOUTH TWICE DAILY 07/06/2019 10/01/2019 Inactive Synthroid 75 mcg tablet RxNorm: 338991 1 Tablet(s) Oral QD Recheck labs in 2 months 06/21/2019 08/16/2019 Inactive Recheck labs in 2 months Synthroid 75 mcg tablet RxNorm: 620955 1 Tablet(s) Oral QD Recheck labs in 2 months 06/21/2019 06/20/2019 Inactive Recheck labs in 2 months amlodipine 5 mg tablet RxNorm: 648647 TAKE 1 TABLET BY MOUTH TW ICE DAILY 06/11/2019 09/05/2019 Inactive Diflucan 100 mg tablet RxNorm: 825712 1 Tablet(s) Oral QD 05/29/2019 06/04/2019 Inactive Zithromax Z-Topher 250 mg tablet RxNorm: 236204 Tablet(s) Oral as directed 05/29/2019 05/28/2019 Inactive Zithromax Z-Topher 250 mg tablet RxNorm: 761383 Tablet(s) Oral as directed 05/29/2019 05/29/2019 Inactive Diflucan 100 mg tablet RxNorm: 746431 1 Tablet(s) Oral QD 05/29/2019 05/28/2019 Inactive cefdinir 300 mg capsule RxNorm: 502862 1 Capsule(s) Oral two ti mes a day 05/19/2019 05/22/2019 Inactive Synthroid 50 mcg tablet RxNorm: 429899 1 TABLET(S) PO QD 05/18/2019 0 06/20/2019 Inactive lab draw in 2 months to recheck thyroid temazepam 15 mg capsule RxNorm: 961788 TAKE 1 CAPSULE B Y MOUTH EVERY DAY AT BEDTIME 05/18/2019 07/16/2019 Inactive Cytomel 5 mcg tablet RxNorm: 141791 1 Tablet(s) Oral QD 05/18/2019 Inactive cefdinir 300 mg capsule RxNorm: 255387 1 Capsule(s) Oral two ti mes a day 05/18/2019 05/18/2019 Inactive magnesium oxide 400 mg (241.3 mg magnesium) tablet RxNorm: 1 68954 1/2 TABLET(S) PO QD 05/10/2019 05/10/2019 Inactive temazepam 15 mg capsule RxNorm: 113868 TAKE 1 CAPSULE B Y MOUTH EVERY DAY AT BEDTIME 05/09/2019 05/16/2019 Inactive magnesium oxide 400 mg (241.3 mg magnesium) tablet RxNorm: 1 17060 1/2 TABLET(S) PO QD 05/02/2019 05/09/2019 Inactive nystatin 100,000 unit/mL oral suspension RxNorm: 184812 5 Milliliter(s) Oral four times a day 04/24/2019 05/07/2019 Inactive cephalexin 500 mg capsule RxNorm: 828051 1 Capsule(s) Oral thre e times a day 04/21/2019 04/27/2019 Inactive cephalexin 500 mg capsule RxNorm: 067489 1 Capsule(s) Oral thre e times a day 04/21/2019 04/20/2019 Inactive potassium chloride ER 20 mEq tablet,extended release RxNorm: 180501 1 Tablet(s) Oral two times a day 04/10/2019 07/05/2019 Inactive Patient r equests 90 days supplyPatient requests 90 days supply nystatin 100,000 unit/mL oral suspension RxNorm: 666307 5 Milliliter(s) Oral four times a day 04/10/2019 04/23/2019 Inactive Diflucan 100 mg tablet RxNorm: 591452 1 Tablet(s) Oral QD 04/10/2019 04/17/2019 Inactive temazepam 15 mg capsule RxNorm: 789945 TAKE 1 CAPSULE B Y MOUTH EVERY DAY AT BEDTIME 04/04/2019 05/03/2019 Inactive Synthroid 50 mcg tablet RxNorm: 907628 1 TABLET(S) PO QD 04/04/2019 1 07/18/2018 Inactive lab draw in 2 months to recheck thyroid magnesium oxide 400 mg (241.3 mg magnesium) tablet RxNorm: 1 64208 1 Tablet(s) Oral QOD 04/04/2019 02/21/2020 Inactive hydrochlorothiazide 25 mg tablet RxNorm: 581890 1 Tablet(s) Oral QA M 03/28/2019 09/20/2019 Inactive amlodipine 5 mg tablet RxNorm: 213785 1 TABLET(S) PO BID 03/15/2019 0 06/12/2019 Inactive magnesium oxide 400 mg (241.3 mg magnesium) tablet RxNorm: 1 56042 1/2 TABLET(S) PO QD 03/06/2019 04/03/2019 Inactive Cytomel 5 mcg tablet RxNorm: 130790 1 Tablet(s) PO QD 02/20/201902/05 Inactive Cytomel 5 mcg tablet RxNorm: 145101 1 Tablet(s) PO QD 02/20/201905/07 Inactive amlodipine 5 mg tablet RxNorm: 276479 1 Tablet(s) PO BID 02/16/2019 0 02/15/2019 Inactive amlodipine 5 mg tablet RxNorm: 415874 1 Tablet(s) PO BID 02/16/2019 1 07/17/2018 Inactive amlodipine 5 mg tablet RxNorm: 526331 1 Tablet(s) PO BID 02/16/2019 0 02/16/2019 Inactive Synthroid 50 mcg tablet RxNorm: 072269 1 TABLET(S) PO QD 02/13/2019 1 Inactive Synthroid 50 mcg tablet RxNorm: 488130 1 TABLET(S) PO QD 01/16/2019 0 02/12/2019 Inactive magnesium oxide 400 mg (241.3 mg magnesium) tablet RxNorm: 1 58661 1/2 Tablet(s) PO QD 01/11/2019 03/05/2019 Inactive temazepam 15 mg capsule RxNorm: 173300 1 Capsule(s) PO QHS 01/04/20 19 04/03/2019 Inactive cefdinir 300 mg capsule RxNorm: 885282 1 Capsule(s) PO BID 12/22/19 19 12/20/2018 Inactive cefdinir 300 mg capsule RxNorm: 948074 1 Capsule(s) PO BID 12/22/19 19 12/24/2018 Inactive hydrochlorothiazide 25 mg tablet RxNorm: 605567 1 Tablet(s) PO QAM 12/19/2018 03/27/2019 Inactive magnesium oxide 400 mg (241.3 mg magnesium) tablet RxNorm: 1 66972 1/2 Tablet(s) PO QD 12/15/2018 01/11/2019 Inactive magnesium oxide 400 mg (241.3 mg magnesium) tablet RxNorm: 1 44875 1/2 Tablet(s) PO QD 12/15/2018 12/14/2018 Inactive Flonase Allergy Relief 50 mcg/actuation nasal spray,suspensi on RxNorm: 7549402 2 SPRAY NASAL QHS 11/09/2018 12/11/2018 Inactive temazepam 15 mg capsule RxNorm: 272104 1 Capsule(s) PO QHS 11/08/1901/02/2019 Inactive Synthroid 50 mcg tablet RxNorm: 645081 1 Tablet(s) PO QD 10/21/2018 0 01/15/2019 Inactive potassium chloride ER 20 mEq tablet,extended release RxNorm: 838793 Tablet(s) 1 TABLET(S) PO BID 10/19/2018 04/09/2019 Inactive Patient reque sts 90 days supplyPatient requests 90 days supply Flonase Allergy Relief 50 mcg/actuation nasal spray,suspensi on RxNorm: 4985356 2 SPRAY NASAL QHS 10/14/2018 12/11/2018 Inactive Patient reques ts 90 days supply Flonase Allergy Relief 50 mcg/actuation nasal spray,suspensi on RxNorm: 0343037 2 [place] NASAL QHS 10/13/2018 10/13/2018 Inactive temazepam 15 mg capsule RxNorm: 170041 1 Capsule(s) PO QHS 10/06/19 19 11/06/2018 Inactive Synthroid 50 mcg tablet RxNorm: 684498 1 Tablet(s) PO QD 10/05/2018 0 10/20/2018 Inactive promethazine 6.25 mg/5 mL oral syrup RxNorm: 969094 5 M illiliter(s) PO Q6H as needed for cough 09/30/2018 12/11/2018 Inactive promethazine-DM 6.25 mg-15 mg/5 mL oral syrup RxNorm: 293658 5 PO Q6H as needed for cough 09/30/2018 12/11/2018 Inactive prednisone 10 mg tablet RxNorm: 116797 1 Tablet(s) PO QD 09/27/2018 0 09/26/2018 Inactive prednisone 10 mg tablet RxNorm: 712782 1 Tablet(s) PO QD 09/27/2018 0 10/03/2018 Inactive cefdinir 300 mg capsule RxNorm: 673405 1 Capsule(s) PO BID 09/24/1909/29/2018 Inactive Macrobid 100 mg capsule RxNorm: 690829 1 Capsule(s) PO BID 09/21/19 19 09/25/2018 Inactive potassium chloride ER 20 mEq tablet,extended release RxNorm: 338359 1 TABLET(S) PO BID 09/14/2018 10/13/2018 Inactive Patient reques ts 90 days supplyPatient requests 90 days supply potassium chloride ER 20 mEq tablet,extended release RxNorm: 057217 1 Tablet(s) PO BID 09/12/2018 09/13/2018 Inactive Patient reques ts 90 days supply Macrobid 100 mg capsule RxNorm: 145077 1 Capsule(s) PO BID 09/06/1909/11/2018 Inactive potassium chloride ER 20 mEq tablet,extended release RxNorm: 284622 1 TABLET(S) PO QD 1 TABLET(S) PO QD 08/26/2018 09/11/2018 Inactive Patien t requests 90 days supply potassium chloride ER 20 mEq tablet,extended release RxNorm: 789013 1 Tablet(s) PO QD 1 TABLET(S) PO QD 08/26/2018 08/25/2018 Inactive potassium chloride ER 20 mEq tablet,extended release RxNorm: 559435 1 TABLET(S) PO QD 08/25/2018 08/25/2018 Inactive Synthroid 50 mcg tablet RxNorm: 168298 1 TABLET(S) PO QD 08/2309/04/2018 Inactive potassium chloride ER 20 mEq tablet,extended release RxNorm: 991222 1 Tablet(s) PO QD 07/28/2018 08/24/2018 Inactive potassium chloride ER 20 mEq tablet,extended release RxNorm: 079392 1 Tablet(s) PO QD 07/28/2018 07/27/2018 Inactive hydrochlorothiazide 25 mg tablet RxNorm: 426810 1 Tablet(s) PO QAM 06/27/2018 12/18/2018 Inactive Synthroid 50 mcg tablet RxNorm: 876772 1 Tablet(s) PO QD DAW1 06/2708/22/2018 Inactive Synthroid 50 mcg tablet RxNorm: 597497 1 TABLET(S) PO QD DAW1 06/1306/26/2018 Inactive Synthroid 75 mcg tablet RxNorm: 072211 1 TABLET(S) PO QD 06/13/2018 0 09/04/2018 Inactive BRAND ONLY mupirocin 2 % topical ointment RxNorm: 614925 1 Applica tion TOP BID to affected area as needed 05/03/2018 09/14/2018 Inactive hydrochlorothiazide 25 mg tablet RxNorm: 540016 1 TABLET(S) PO QD 1 07/02/2017 06/26/2018 Inactive Synthroid 50 mcg tablet RxNorm: 037120 1 Tablet(s) PO QD DAW1 04/1506/12/2018 Inactive Synthroid 50 mcg tablet RxNorm: 401026 1 Tablet(s) PO QD DAW1 04/1504/14/2018 Inactive Synthroid 75 mcg tablet RxNorm: 635174 1 Tablet(s) PO QD 03/15/2018 1 06/14/2017 Inactive BRAND ONLY temazepam 15 mg capsule RxNorm: 204594 1 Capsule(s) PO QHS 03/15/20 18 06/12/2018 Inactive Synthroid 75 mcg tablet RxNorm: 788455 1 Tablet(s) PO QD 01/27/2018 1 Inactive BRAND ONLY Synthroid 75 mcg tablet RxNorm: 898546 1 Tablet(s) PO QD (6 day s per week) 01/17/2018 01/26/2018 Inactive BRAND ONLY Duexis 800 mg-26.6 mg tablet RxNorm: 5775851 1/2 Tablet(s) PO BID 0 10/20/2017 10/22/2017 Inactive Synthroid 75 mcg tablet RxNorm: 156222 1 Tablet(s) PO QD 09/17/2017 1 Inactive BRAND ONLY hydrochlorothiazide 25 mg tablet RxNorm: 858585 1 TABLET(S) PO QD 0 08/30/2017 05/01/2018 Inactive hydrochlorothiazide 25 mg tablet RxNorm: 494620 1 Tablet(s) PO QAM 06/03/2017 09/14/2018 Inactive hydrochlorothiazide 12.5 mg tablet RxNorm: 100096 1 Tablet(s) PO QA M 05/25/2017 06/02/2017 Inactive Synthroid 75 mcg tablet RxNorm: 952343 1 Tablet(s) PO QD 05/14/2017 0 09/17/2017 Inactive BRAND ONLY Restoril 15 mg capsule RxNorm: 370151 TAKE 1 CAPSULE BY MOUTH EVERY NIGHT AT BEDTIME NEEDED 03/05/2017 04/02/2017 Inactive Synthroid 75 mcg tablet RxNorm: 318838 1 Tablet(s) PO QD 01/18/2017 1 07/15/2016 Inactive BRAND ONLY Synthroid 50 mcg tablet RxNorm: 662985 1 Tablet(s) PO QD 01/13/2017 0 01/17/2017 Inactive tizanidine 2 mg tablet RxNorm: 736277 1 Tablet(s) PO QHS for spasm 01/04/2017 03/21/2017 Inactive tizanidine 2 mg tablet RxNorm: 258982 1 Tablet(s) PO QHS for spasm 12/17/2016 01/04/2017 Inactive hydrochlorothiazide 25 mg tablet RxNorm: 364628 1 Tablet(s) PO QD 0 12/04/2016 01/03/2017 Inactive Synthroid 50 mcg tablet RxNorm: 760500 1 Tablet(s) PO QD as directe d 11/18/2016 01/13/2017 Inactive Synthroid 75 mcg tablet RxNorm: 362325 1 Tablet(s) PO QD as directe d 11/18/2016 01/10/2017 Inactive Restoril 15 mg capsule RxNorm: 657451 1 Capsule(s) PO QHS as ne eded for sleep 11/16/2016 03/05/2017 Inactive losartan 50 mg tablet RxNorm: 517427 1 Tablet(s) PO BID 10/19/2016 Inactive prednisone 20 mg tablet RxNorm: 690339 1 Tablet(s) PO QD 10/08/2016 0 10/07/2016 Inactive clindamycin 300 mg capsule RxNorm: 312287 1 Capsule(s) PO TID 10/0810/17/2016 Inactive prednisone 20 mg tablet RxNorm: 731828 1 Tablet(s) PO QD 10/08/2016 0 10/12/2016 Inactive clindamycin 300 mg capsule RxNorm: 098381 1 Capsule(s) PO TID 10/0810/07/2016 Inactive cephalexin 500 mg capsule RxNorm: 203095 1 Capsule(s) PO TID 201610/07/2016 Inactive levothyroxine 75 mcg tablet RxNorm: 480509 TAKE 1 TABLET BY TONE TH EVERY DAY 10/02/2016 10/04/2016 Inactive levothyroxine 75 mcg tablet RxNorm: 504850 1 Tablet(s) PO QD 201610/04/2016 Inactive Restoril 15 mg capsule RxNorm: 368655 1 Capsule(s) PO QHS 08/23/2016 11/15/2016 Inactive levothyroxine 75 mcg tablet RxNorm: 238523 1 Tablet(s) PO QD 201608/19/2016 Inactive levothyroxine 75 mcg tablet RxNorm: 718907 1 Tablet(s) PO QD 201609/09/2016 Inactive levothyroxine 50 mcg capsule RxNorm: 199350 1 Capsule(s) PO QD 0206/201608/19/2016 Inactive hydrochlorothiazide 25 mg tablet RxNorm: 658139 1 Tablet(s) PO QD 0 06/23/2016 12/03/2016 Inactive amoxicillin 500 mg tablet RxNorm: 813833 1 Tablet(s) PO TID 016 06/03/2016 Inactive doxycycline hyclate 100 mg capsule RxNorm: 1693284 1 Capsule(s) PO BID 06/03/2016 06/12/2016 Inactive doxycycline hyclate 100 mg capsule RxNorm: 7130436 1 Capsule(s) PO BID 06/03/2016 06/02/2016 Inactive levothyroxine 75 mcg tablet RxNorm: 121308 1 Tablet(s) PO QD 201505/19/2016 Inactive losartan 50 mg tablet RxNorm: 933731 1 TABLET(S) PO BID 04/07/2016 Inactive metoprolol succinate ER 50 mg tablet,extended release 24 hr RxNorm: 916004 1 TABLET(S) PO QHS AND 1/2 TAB IN THE AM--REPLACES 25MG DOSE 04/03/2016 07/27/2016 Inactive Restoril 15 mg capsule RxNorm: 149238 1 Capsule(s) PO QHS as ne eded for sleep 02/24/2016 05/23/2016 Inactive hydrochlorothiazide 12.5 mg tablet RxNorm: 097749 1 Tab let(s) PO QD replaces 25mg dose 01/13/2016 06/22/2016 Inactive metoprolol succinate ER 50 mg tablet,extended release 24 hr RxNorm: 867155 1 Tablet(s) PO QHS and 1/2 tab in the AM--replaces 25mg dose 10/17/2015 04/02/2016 Inactive amlodipine 2.5 mg tablet RxNorm: 072502 1 Tablet(s) PO QHS 10/08/19 16 10/07/2015 Inactive amlodipine 2.5 mg tablet RxNorm: 713385 1 Tablet(s) PO QHS 10/08/19 16 10/16/2015 Inactive losartan 50 mg tablet RxNorm: 903794 1 TABLET(S) PO BID 09/23/2015 Inactive Medrol (Topher) 4 mg tablets in a dose pack RxNorm: 883619 Take as directed 09/03/2015 10/07/2015 Inactive Lasix 40 mg tablet RxNorm: 099375 1 TABLET(S) PO QD PRN FOR SWELLIN G 08/27/2015 12/04/2015 Inactive Lasix 40 mg tablet RxNorm: 502166 1 Tablet(s) PO QD prn for swellin g 08/01/2015 08/26/2015 Inactive losartan 50 mg tablet RxNorm: 748391 1 Tablet(s) PO BID 06/27/2015 Inactive Zyrtec 10 mg tablet RxNorm: 2775767 1 Tablet(s) PO QD 12/05/2015 Active magnesium oxide 400 mg (241.3 mg magnesium) tablet RxNorm: 47517 1 oral 05/25/2022 Active levothyroxine 50 mcg capsule RxNorm: 786283 1 Capsule(s) PO QD 06/201607/07/2016 Inactive sotalol 80 mg tablet RxNorm: 9731909 1/2 Tablet(s) PO BID 09/05/2018 09/04/2018 Inactive melatonin 1 mg tablet RxNorm: 947803 1 Tablet(s) PO QHS as need ed for sleep 12/05/2015 12/04/2015 Inactive levothyroxine 75 mcg tablet RxNorm: 442036 1 Tablet(s) PO 6 day s a week 07/08/2016 07/07/2016 Inactive Vitamin D3 1,000 unit tablet RxNorm: 404828 1 Tablet(s) PO QD 12/0412/04/2015 Inactive sotalol 80 mg tablet RxNorm: 1532573 1 Tablet(s) PO BID 08/30/2017 Inactive Synthroid 75 mcg tablet RxNorm: 376985 2 Tablet(s) PO M, W, F 09/1509/14/2018 Inactive tizanidine 2 mg tablet RxNorm: 255667 1 Tablet(s) PO QHS for spasm 12/17/2016 12/16/2016 Inactive Nasacort AQ 55 mcg nasal spray aerosol RxNorm: 5518699 [place] ANNELIESE [place] as needed 12/12/2018 12/11/2018 Inactive fluocinonide 0.05 % topical gel RxNorm: 777829 TOP as needed on gum s 07/28/2016 07/27/2016 Inactive Flonase Allergy Relief 50 mcg/actuation nasal spray,suspensi on RxNorm: 1127443 2 [place] NASAL QHS 10/13/2018 10/12/2018 Inactive Synthroid 50 mcg tablet RxNorm: 433644 1 Tablet(s) PO Tu, Thur, Sat, Sun 09/20/2018 09/19/2018 Inactive Osteo Bi-Flex (5-Loxin) 1,500 mg-400 unit-100 mg tablet RxNo rm: 1 Tablet(s) PO QD 12/05/2015 12/04/2015 Inactive hydrochlorothiazide 25 mg tablet RxNorm: 332146 1/2 Tablet(s) PO QA M 01/13/2016 01/12/2016 Inactive metoprolol succinate ER 25 mg tablet,extended release 24 hr RxNorm: 837714 1 Tablet(s) PO QD 10/17/2015 10/16/2015 Inactive promethazine-DM 6.25 mg-15 mg/5 mL oral syrup RxNorm: 625527 5 PO Q6H as needed for cough 09/30/2018 09/29/2018 Inactive Synthroid 50 mcg tablet RxNorm: 603677 1 Tablet(s) PO QD 10/05/2018 0 10/04/2018 Inactive mupirocin 2 % topical ointment RxNorm: 003112 1 Applica tion TOP BID to affected area as needed 05/03/2018 05/02/2018 Inactive hydrochlorothiazide 25 mg tablet RxNorm: 553781 1 Tablet(s) PO QOD 01/13/2016 01/12/2016 Inactive Vitamin D3 1000 units Capsule RxNorm: 1 Capsule(s) PO QD 9 12/11/2018 Inactive levothyroxine 75 mcg tablet RxNorm: 837608 1 Tablet(s) PO QD 201505/07/2016 Inactive potassium chloride ER 10 mEq capsule,extended release RxNorm : 339461 1 Capsule(s) PO QD 12/05/2015 12/04/2015 Inactive aspirin 81 mg tablet RxNorm: 747691 1 Tablet(s) PO QHS 01/22/2020 Inactive Claritin 10 mg tablet RxNorm: 230849 1 Tablet(s) PO QD 12/05/2015 Inactive Vitamin B12 1000mcg Tablet RxNorm: 1/2 Tablet(s) PO QD 12/12/2018 12/11/2018 Inactive temazepam 15 mg capsule RxNorm: 582997 1 Capsule(s) PO QHS 03/15/20 18 03/14/2018 Inactive hydrochlorothiazide 25 mg tablet RxNorm: 979997 1 Tablet(s) PO QAM 12/05/2015 12/04/2015 Inactive sotalol 80 mg tablet RxNorm: 0099433 1/2 Tablet(s) PO QD 09/22/2018 0 09/21/2018 Inactive mupirocin 2 % topical ointment RxNorm: 385023 TOP as needed 017 08/24/2016 Inactive hydrochlorothiazide 25 mg tablet RxNorm: 243192 1/2 Tablet(s) PO QA M 05/25/2017 05/24/2017 Inactive amlodipine 10 mg tablet RxNorm: 458379 1 Tablet(s) PO QD 02/16/2019 0 02/15/2019 Inactive Citracal + D Slow Release 600 mg calcium-500 unit tablet,ext .release RxNorm: 2 Tablet(s) PO QD 02/16/2019 02/15/2019 Inactive triamcinolone acetonide 0.1 % topical cream RxNorm: 8150619 TOP as needed 12/12/2018 12/11/2018 Inactive Restoril 15 mg capsule RxNorm: 069012 1 Capsule(s) PO QHS 02/24/2016 02/23/2016 Inactive hydrochlorothiazide 25 mg tablet RxNorm: 888246 1/2 Tablet(s) PO QO D 01/13/2016 01/12/2016 Inactive promethazine 6.25 mg/5 mL oral syrup RxNorm: 282475 5 M illiliter(s) PO Q6H as needed for cough 09/30/2018 09/29/2018 Inactive Centrum Silver Women 8 mg iron-400 mcg-300 mcg tablet RxNorm : 1 Tablet(s) PO QD 08/30/2017 08/29/2017 Inactive losartan 50 mg tablet RxNorm: 518408 1 Tablet(s) PO QHS 01/04/2017 Inactive levothyroxine 75 mcg tablet RxNorm: 994605 1 Tablet(s) PO 6 day s a week 10/05/2016 10/04/2016 Inactive losartan 50 mg tablet RxNorm: 001283 2 Tablet(s) PO QD 06/27/2015 Inactive Culturelle 10 billion cell capsule RxNorm: 527758 1-2 Capsule(s ) PO QD 05/10/2019 05/09/2019 Inactive Culturelle 10 billion cell capsule RxNorm: 503733 1 Capsule(s) PO Q D 08/30/2017 08/29/2017 Inactive Synthroid 75 mcg tablet RxNorm: 891856 1 Tablet(s) PO MW 01/18/2017 01/17/2017 Inactive Medication Administered No Medication [...] Code Item Item Code Result Date S [facility] Location COMPLETE BLOOD COUNT [id number] WBC 6.5 10e9/L 09/27/19 19 Unknown COMPLETE BLOOD COUNT [id number] RBC 4.22 10e12/L 2018 Unknown COMPLETE BLOOD COUNT [id number] HEMOGLOBIN 13.3 g/dL 09/27/19 19 Unknown COMPLETE BLOOD COUNT [id number] HEMATOCRIT 38.7 % 09/27/19 19 Unknown COMPLETE BLOOD COUNT [id number] MCV 91.7 fL 9 Unknown COMPLETE BLOOD COUNT [id number] MCH 31.5 pg 9 Unknown COMPLETE BLOOD COUNT 6657756 MCHC 34.4 g/dL 9 Unknown COMPLETE BLOOD COUNT [id number] PLATELET COUNT 326 10e9/L Unknown COMPLETE BLOOD COUNT [id number] Mean Plt Volume 8.9 fL Unknown COMPLETE BLOOD COUNT 6319854 Neut Auto 69.0 % 9 Unknown COMPLETE BLOOD COUNT [id number] Lymph Auto 16.5 % 09/27/19 19 Unknown COMPLETE BLOOD COUNT 0471613 [place] Auto 8.3 % 9 Unknown COMPLETE BLOOD COUNT 5013908 RDW 12.2 % 9 Unknown COMPLETE BLOOD COUNT 8471461 Eos Auto 5.9 % 9 Unknown COMPLETE BLOOD COUNT 0358678 Baso Auto 0.3 % 9 Unknown COMPLETE BLOOD COUNT 8543178 Neutrophil Abs 4.48 10e9/L Unknown COMPLETE BLOOD COUNT 6794000 Lymphocyte Abs 1.07 10e9/L Unknown COMPLETE BLOOD COUNT [id number] Monocyte Abs 0.54 10e9/L 09/06 Unknown COMPLETE BLOOD COUNT 6619858 Eosinophil Abs 0.38 10e9/L Unknown COMPLETE BLOOD COUNT [id number] RDW-SD 39.8 fL 9 Unknown COMPLETE BLOOD COUNT [id number] Basophil Abs 0.02 10e9/L 09/06 Unknown GFR CALC 3859748 GFR Non Afr Amr >60 mL/min 12/12/2015 Un known GFR CALC 3399256 GFR Afr Amr >60 mL/min 12/12/2015 [place] [address] Glucose 100 mg/dL 12/11 [place] [address] CREATININE 0.78 mg/dL 12/2015 [place] [address] BUN 14 mg/dL 12/11 [place] [address] SODIUM 132 mmol/L 12/2015 [place] [address] POTASSIUM 3.6 mmol/L 12/2015 [place] [address] CHLORIDE 97 mmol/L 12/11 [place] [address] Bicarbonate 28 mmol/L 12/2015 [place] [address] AGAP 7 mmol/L 12/11 [place] [address] CALCIUM 9.3 mg/dL 12/11 [place] [address] Glucose 92 mg/dL 12/04 [place] [address] CREATININE 0.76 mg/dL [place] [address] BUN 8 mg/dL 12/04 [place] [address] SODIUM 133 mmol/L 11/07 [place] [address] POTASSIUM 4.1 mmol/L 11/07 [place] [address] CHLORIDE 97 mmol/L 12/04 [place] [address] Bicarbonate 27 mmol/L [place] [address] AGAP 9 mmol/L 12/04 [place] [address] CALCIUM 9.8 mg/dL 12/04 Unknown GFR CALC 6417140 GFR Afr Amr >60 mL/min 12/05/2015 Unknow n COMPREHENSIVE METABOLIC 18120 AST 36 U/L 2015 Unknown COMPREHENSIVE METABOLIC 82068 ALT 41 U/L 2015 Unknown COMPREHENSIVE METABOLIC 10797 BUN 11 mg/dL 2015 Unknown COMPREHENSIVE METABOLIC 96116 ALBUMIN 4.2 g/dL 2015 Unknown COMPREHENSIVE METABOLIC 63722 CHLORIDE 93 mmol/L 2015 Unknown COMPREHENSIVE METABOLIC 76118 Bili Total 1.0 mg/dL 11/24 Unknown COMPREHENSIVE METABOLIC 57330 ALK PHOS 79 U/L 2015 Unknown COMPREHENSIVE METABOLIC 68853 SODIUM 128 mmol/L 11/24 Unknown COMPREHENSIVE METABOLIC 29126 CREATININE 0.65 mg/dL 11/06 Unknown COMPREHENSIVE METABOLIC 95340 CALCIUM 9.4 mg/dL 2015 Unknown COMPREHENSIVE METABOLIC 25997 POTASSIUM 3.7 mmol/L 11/24 Unknown COMPREHENSIVE METABOLIC 05059 Total Protein 6.9 g/dL Unknown COMPREHENSIVE METABOLIC 81228 Glucose 101 mg/dL 2015 Unknown COMPREHENSIVE METABOLIC 39748 Bicarbonate 27 mmol/L 11/06 Unknown COMPREHENSIVE METABOLIC 28505 AGAP 8 mmol/L 2015 Unknown THYROID STIMULATING HORMONE 47307 TSH 2.983 uIU/mL 11/25/2015 Unknown COMPLETE BLOOD COUNT 3067413 WBC 9.0 10e9/L 11/25/19 16 Unknown COMPLETE BLOOD COUNT 3811614 RBC 3.98 10e12/L 2015 Unknown COMPLETE BLOOD COUNT 7674060 HEMOGLOBIN 12.8 g/dL 11/25/19 16 Unknown COMPLETE BLOOD COUNT 6217008 HEMATOCRIT 36.1 % 11/25/19 16 Unknown COMPLETE BLOOD COUNT 9795875 MCV 90.7 fL 6 Unknown COMPLETE BLOOD COUNT 4571355 MCH 32.2 pg 6 Unknown COMPLETE BLOOD COUNT 1875824 MCHC 35.5 g/dL 6 Unknown COMPLETE BLOOD COUNT 0671129 PLATELET COUNT 291 10e9/L Unknown COMPLETE BLOOD COUNT 2662570 Mean Plt Volume 8.8 fL Unknown COMPLETE BLOOD COUNT 3404389 Neut Auto 72.2 % 6 Unknown COMPLETE BLOOD COUNT 0171769 Lymph Auto 19.4 % 11/25/19 16 Unknown COMPLETE BLOOD COUNT 9043964 [place] Auto 7.4 % 6 Unknown COMPLETE BLOOD COUNT 4602966 RDW 11.8 % 6 Unknown COMPLETE BLOOD COUNT 4778477 Eos Auto 0.7 % 6 Unknown COMPLETE BLOOD COUNT 3273090 Baso Auto 0.3 % 6 Unknown COMPLETE BLOOD COUNT 5889538 Neutrophil Abs 6.50 10e9/L Unknown COMPLETE BLOOD COUNT 6526310 Lymphoctye Abs 1.75 10e9/L Unknown COMPLETE BLOOD COUNT 9035325 Monocyte Abs 0.67 10e9/L 11/06 Unknown COMPLETE BLOOD COUNT 3031523 Eosinophil Abs 0.06 10e9/L Unknown COMPLETE BLOOD COUNT 6270941 RDW-SD 38.1 fL 6 Unknown COMPLETE BLOOD COUNT 3315621 Basophil Abs 0.03 10e9/L 11/06 Unknown GFR CALC 9114408 GFR Non Afr Amr >60 mL/min 11/25/2015 Un known GFR CALC 0485878 GFR Afr Amr >60 mL/min 11/25/2015 Unknow n Procedures Procedure Codes Date SARSCOV CORONAVIRUS AG IA CPT-4: 85873 01/27/2022 CEFTRIAXONE SODIUM INJECTION CPT-4: J0696 01/27/2022 THER/PROPH/DIAG INJ SC/IM CPT-4: 55261 01/27/2022 URINALYSIS NONAUTO W/O SCOPE CPT-4: 54830 05/12/2021 RML URINE CULTURE/ COLONY COUNT CPT-4: 54098 05/12/20 FLU VACC PRSV FREE INC ANTIG 65 AND OLDER CPT-4: 13199 02/27/2021 ADMIN INFLUENZA VIRUS VAC CPT-4: G0008 02/27/2021 FLU VACC PRSV FREE INC ANTIG 65 AND OLDER CPT-4: 16853 02/27/2021 RML URINE CULTURE/ COLONY COUNT CPT-4: 31203 11/12/19 21 URINALYSIS NONAUTO W/O SCOPE CPT-4: 92453 11/11/2020 DESTRUCT PREMALG LESION (Cryosurgery) CPT-4: 61675 RML URINE CULTURE/ COLONY COUNT CPT-4: 47660 02/20/20 20 URINALYSIS NONAUTO W/O SCOPE CPT-4: 84240 02/13/2020 RML URINE CULTURE/ COLONY COUNT CPT-4: 65293 02/13/20 20 CEFTRIAXONE SODIUM INJECTION CPT-4: J0696 02/13/2020 THER/PROPH/DIAG INJ SC/IM CPT-4: 66983 02/13/2020 URINALYSIS NONAUTO W/O SCOPE CPT-4: 72406 11/09/2019 RML URINE CULTURE/ COLONY COUNT CPT-4: 88252 11/09/19 20 CEFTRIAXONE SODIUM INJECTION CPT-4: J0696 05/18/2019 THER/PROPH/DIAG INJ SC/IM CPT-4: 57786 05/18/2019 CEFTRIAXONE SODIUM INJECTION CPT-4: J0696 05/17/2019 THER/PROPH/DIAG INJ SC/IM CPT-4: 66591 05/17/2019 RML URINE CULTURE/ COLONY COUNT CPT-4: 24131 05/08/20 19 THROAT CULTURE CPT-4: 40115 05/08/2019 URINALYSIS NONAUTO W/O SCOPE CPT-4: 82178 04/21/2019 RML URINE CULTURE/ COLONY COUNT CPT-4: 03566 04/21/20 19 CEFTRIAXONE SODIUM INJECTION CPT-4: J0696 04/21/2019 THER/PROPH/DIAG INJ SC/IM CPT-4: 37417 04/21/2019 FLU VACC PRSV FREE INC ANTIG 65 AND OLDER CPT-4: 10643 03/02/2019 FLU VACC PRSV FREE INC ANTIG 65 AND OLDER CPT-4: 25232 03/02/2019 ADMIN INFLUENZA VIRUS VAC CPT-4: G0008 03/02/2019 URINALYSIS NONAUTO W/O SCOPE CPT-4: 82991 02/16/2019 Removal impacted cerumen using irrigation/lavage, unilateral CPT-4: 53394 12/14/2018 UA W/MICR CPT-4: 47977 10/05/2018 ROUTINE VENIPUNCTURE CPT-4: 23739 09/26/2018 RML COMPLETE CBC W/AUTO DIFF WBC CPT-4: 86346 019 CEFTRIAXONE SODIUM INJECTION CPT-4: J0696 09/22/2018 THER/PROPH/DIAG INJ SC/IM CPT-4: 10742 09/22/2018 INFLUENZA ASSAY W/OPTIC CPT-4: 90383 09/22/2018 URINALYSIS NONAUTO W/O SCOPE CPT-4: 54817 09/20/2018 CEFTRIAXONE SODIUM INJECTION CPT-4: J0696 09/20/2018 THER/PROPH/DIAG INJ SC/IM CPT-4: 30542 09/20/2018 RML URINE CULTURE/ COLONY COUNT CPT-4: 27696 09/21/19 19 RML URINE CULTURE/ COLONY COUNT CPT-4: 81311 09/15/19 19 URINALYSIS NONAUTO W/O SCOPE CPT-4: 34244 09/05/2018 RML URINE CULTURE/ COLONY COUNT CPT-4: 53009 09/06/19 19 URINALYSIS NONAUTO W/O SCOPE CPT-4: 49205 04/20/2018 RML URINE CULTURE/ COLONY COUNT CPT-4: 23322 04/20/20 18 CERUM REMOVAL CPT-4: 50040 03/18/2018 FLU VACC PRSV FREE INC ANTIG 65 AND OLDER CPT-4: 66571 03/03/2018 ADMIN INFLUENZA VIRUS VAC CPT-4: G0008 03/03/2018 PRESCRIP TRANSMIT VIA ERX SY CPT-4: G8553 05/25/2017 FLU VACC PRSV FREE INC ANTIG 65 AND OLDER CPT-4: 62538 03/08/2017 ADMIN INFLUENZA VIRUS VAC CPT-4: G0008 03/08/2017 PRESCRIP TRANSMIT VIA ERX SY CPT-4: G8553 01/18/2017 PRESCRIP TRANSMIT VIA ERX SY CPT-4: G8553 11/18/2016 RML URINE CULTURE/ COLONY COUNT CPT-4: 73968 10/27/19 17 URINALYSIS NONAUTO W/O SCOPE CPT-4: 28728 10/26/2016 PRESCRIP TRANSMIT VIA ERX SY CPT-4: G8553 10/08/2016 PRESCRIP TRANSMIT VIA ERX SY CPT-4: G8553 10/05/2016 PRESCRIP TRANSMIT VIA ERX SY CPT-4: G8553 06/23/2016 PRESCRIP TRANSMIT VIA ERX SY CPT-4: G8553 06/03/2016 INFLUENZA ASSAY W/OPTIC CPT-4: 26728 05/26/2016 FLU VACC PRSV FREE INC ANTIG 65 AND OLDER CPT-4: 12058 03/19/2016 ADMIN INFLUENZA VIRUS VAC CPT-4: G0008 03/19/2016 PNEUMOCOCCAL VACC 13 CARLIE IM CPT-4: 08436 01/13/2016 ADMIN PNEUMOCOCCAL VACCINE CPT-4: G0009 01/13/2016 PRESCRIP TRANSMIT VIA ERX SY CPT-4: G8553 01/13/2016 URINALYSIS NONAUTO W/O SCOPE CPT-4: 55375 11/27/2015 RML URINE CULTURE/ COLONY COUNT CPT-4: 62896 11/27/19 16 PRESCRIP TRANSMIT VIA ERX SY [...] 97.9 (F) We ight: 141 lbs Code: 37734-8 08/25/2022 Blood Pressure 1: 124/78 Code: 8480-6 Heart Rate 1: 75 bpm Respiratory Rate: 20 bpm SpO2: 98% Temperature: 36.4 (C) / 97.5 (F) We ight: 134 lbs Code: 35803-4 08/11/2022 Blood Pressure 1: 136/74 Code: 8480-6 Heart Rate 1: 69 bpm Respiratory Rate: 18 bpm SpO2: 97% Temperature: 36.7 (C) / 98.0 (F) We ight: 134 lbs Code: 43992-4 07/28/2022 Blood Pressure 1: 126/74 Code: 8480-6 Heart Rate 1: 74 bpm Respiratory Rate: 20 bpm SpO2: 97% Temperature: 36.4 (C) / 97.5 (F) We ight: 135 lbs Code: 29608-2 07/14/2022 Blood Pressure 1: 130/76 Code: 8480-6 Heart Rate 1: 51 bpm SpO2: 100% Temperature: 36.3 (C) / 97.3 (F) Weight: 130 lbs Code : 45489-2 06/23/2022 Blood Pressure 1: 140/80 Code: 8480-6 Heart Rate 1: 58 bpm Respiratory Rate: 20 bpm SpO2: 98% Temperature: 36.3 (C) / 97.3 (F) We ight: 135 lbs Code: 92359-5 05/25/2022 Blood Pressure 1: 161/82 Code: 8480-6 BMI: 24.3 Code: 45314-1 Heart Rate 1: 72 bpm Height: 5'3" Code: 8302-2 SpO2: 97% Temperature: 3 6.3 (C) / 97.3 (F) Weight: 137 lbs Code: 65526-3 03/19/2022 Blood Pressure 1: 140/82 Code: 8480-6 BMI: 23.2 Code: 44276-6 Heart Rate 1: 56 bpm Height: 5'3" Code: 8302-2 SpO2: 92% Temperature: 3 6.8 (C) / 98.2 (F) Weight: 131 lbs Code: 19138-8 02/16/2022 Blood Pressure 1: 154/82 Code: 8480-6 BMI: 23.6 Code: 28919-0 Heart Rate 1: 64 bpm Height: 5'3" Code: 8302-2 Respiratory Rate: 20 bpm SpO2: 96% Temperature: 36.8 (C) / 98.3 (F) Weight: 133 lbs Code: 65593-1 2022 Blood Pressure 1: 140/74 Code: 8480-6 BMI: 22.5 Code: 51000-7 Heart Rate 1: 54 bpm Height: 5'3" Code: 8302-2 Respiratory Rate: 18 bpm SpO2: 96% Temperature: 36.8 (C) / 98.2 (F) Weight: 127 lbs Code: 03315-0 01/27/2022 Blood Pressure 1: 144/80 Code: 8480-6 Heart Rate 1: 84 bpm Respiratory Rate: 22 bpm SpO2: 96% Temperature: 36.7 (C) / 98.0 (F) We ight: 134 lbs Code: 93153-0 10/28/2021 Blood Pressure 1: 152/82 Code: 8480-6 BMI: 22.8 Code: 68846-8 Heart Rate 1: 68 bpm Height: 5'4" Code: 8302-2 Respiratory Rate: 20 bpm SpO2: 98% Temperature: 36.8 (C) / 98.2 (F) Weight: 133 lbs Code: 03661-9 09/23/2021 Blood Pressure 1: 154/78 Code: 8480-6 Heart Rate 1: 66 bpm Respiratory Rate: 18 bpm SpO2: 97% Temperature: 36.2 (C) / 97.1 (F) We ight: 130 lbs Code: 57565-6 08/21/2021 Blood Pressure 1: 166/78 Code: 8480-6 Heart Rate 1: 76 bpm Respiratory Rate: 20 bpm SpO2: 98% Temperature: 36.5 (C) / 97.7 (F) We ight: 134 lbs Code: 45534-5 07/30/2021 Blood Pressure 1: 146/68 Code: 8480-6 Heart Rate 1: 76 bpm Respiratory Rate: 20 bpm SpO2: 98% Temperature: 36.7 (C) / 98.1 (F) We ight: 135 lbs Code: 37725-0 06/19/2021 Blood Pressure 1: 96/50 Code: 8480-6 Heart Rate 1: 72 bpm Respiratory Rate: 20 bpm SpO2: 97% Temperature: 36.8 (C) / 98.3 (F) Weight: 132 lbs Code: 14544-0 05/08/2021 Blood Pressure 1: 132/74 Code: 8480-6 Heart Rate 1: 72 bpm Respiratory Rate: 20 bpm SpO2: 99% Temperature: 36.8 (C) / 98.2 (F) We ight: 132 lbs Code: 43573-9 04/28/2021 Blood Pressure 1: 132/62 Code: 8480-6 Heart Rate 1: 88 bpm Respiratory Rate: 20 bpm SpO2: 98% Temperature: 36.6 (C) / 97.9 (F) We ight: 141 lbs Code: 36111-3 03/19/2021 Blood Pressure 1: 140/67 Code: 8480-6 Heart Rate 1: 71 bpm Respiratory Rate: 15 bpm SpO2: 99% Temperature: 36.3 (C) / 97.3 (F) We ight: 142 lbs Code: 81085-5 02/06/2021 Blood Pressure 1: 152/74 Code: 8480-6 Heart Rate 1: 80 bpm Respiratory Rate: 20 bpm SpO2: 96% Temperature: 36.7 (C) / 98.0 (F) We ight: 138 lbs Code: 71977-1 12/20/2020 Blood Pressure 1: 112/63 Code: 8480-6 Heart Rate 1: 80 bpm Respiratory Rate: 16 bpm SpO2: 99% Temperature: 36.4 (C) / 97.6 (F) We ight: 136 lbs Code: 15336-9 12/11/2020 Blood Pressure 1: 123/64 Code: 8480-6 BMI: 23.5 Code: 93618-2 Heart Rate 1: 68 bpm Height: 5'4" Code: 8302-2 Respiratory Rate: 15 bpm SpO2: 98% Temperature: 36.2 (C) / 97.2 (F) Weight: 137 lbs Code: 66220-8 11/11/2020 Blood Pressure 1: 154/82 Code: 8480-6 Heart Rate 1: 76 bpm SpO2: 99% Temperature: 36.9 (C) / 98.5 (F) Weight: 136 lbs Code: 87996-3 09/05/2020 Blood Pressure 1: 150/66 Code: 8480-6 Heart Rate 1: 80 bpm Respiratory Rate: 20 bpm SpO2: 99% Temperature: 37.0 (C) / 98.6 (F) We ight: 132 lbs Code: 69987-9 07/29/2020 Blood Pressure 1: 152/72 Code: 8480-6 Heart Rate 1: 84 bpm Respiratory Rate: 20 bpm SpO2: 97% Temperature: 36.8 (C) / 98.2 (F) We ight: 133 lbs Code: 37906-1 06/24/2020 Blood Pressure 1: 112/68 Code: 8480-6 Heart Rate 1: 72 bpm Respiratory Rate: 20 bpm SpO2: 98% Temperature: 36.8 (C) / 98.2 (F) We ight: 130 lbs Code: 39585-7 06/21/2020 Blood Pressure 1: 129/78 Code: 8480-6 He art Rate 1: 81 bpm 02/29/2020 Blood Pressure 1: 136/70 Code: 8480-6 Heart Rate 1: 76 bpm Respiratory Rate: 20 bpm SpO2: 98% Temperature: 36.4 (C) / 97.5 (F) We ight: 130 lbs Code: 91919-9 02/22/2020 Blood Pressure 1: 142/67 Code: 8480-6 Heart Rate 1: 64 bpm Respiratory Rate: 16 bpm SpO2: 98% Temperature: 36.5 (C) / 97.7 (F) We ight: 128 lbs Code: 07306-8 02/13/2020 Blood Pressure 1: 124/80 Code: 8480-6 Heart Rate 1: 61 bpm Respiratory Rate: 15 bpm SpO2: 97% Temperature: 36.2 (C) / 97.1 (F) We ight: Code: 15198-6 2020 Blood Pressure 1: 124/60 Code: 8480-6 Heart Rate 1: 92 bpm Respiratory Rate: 20 bpm SpO2: 97% Temperature: 36.4 (C) / 97.5 (F) We ight: 129 lbs Code: 29458-2 01/22/2020 Blood Pressure 1: 134/54 Code: 8480-6 Heart Rate 1: 72 bpm Respiratory Rate: 20 bpm SpO2: 97% Temperature: 37.1 (C) / 98.7 (F) We ight: 128 lbs Code: 77956-3 12/26/2019 Blood Pressure 1: 124/74 Code: 8480-6 Heart Rate 1: 64 bpm Respiratory Rate: 20 bpm SpO2: 98% Temperature: 37.0 (C) / 98.6 (F) We ight: 126 lbs Code: 25517-4 11/27/2019 Blood Pressure 1: 134/73 Code: 8480-6 Heart Rate 1: 116 bpm Respiratory Rate: 17 bpm SpO2: 97% Temperature: 36.7 (C) / 98.0 (F) We ight: 134 lbs Code: 70445-5 11/09/2019 Blood Pressure 1: 126/68 Code: 8480-6 Heart Rate 1: 92 bpm Respiratory Rate: 20 bpm SpO2: 97% Temperature: 37.2 (C) / 98.9 (F) We ight: 135 lbs Code: 15984-3 10/10/2019 Blood Pressure 1: 117/65 Code: 8480-6 Heart Rate 1: 66 bpm Respiratory Rate: 16 bpm SpO2: 99% Temperature: 36.7 (C) / 98.0 (F) We ight: 130 lbs Code: 63225-7 07/13/2019 Blood Pressure 1: 144/70 Code: 8480-6 BMI: 23.0 Code: 81633-4 Heart Rate 1: 92 bpm Height: 5'4" Code: 8302-2 Respiratory Rate: 20 bpm SpO2: 98% Temperature: 36.8 (C) / 98.2 (F) Weight: 133 lbs Code: 31047-9 05/18/2019 Blood Pressure 1: 122/60 Code: 8480-6 Heart Rate 1: 92 bpm Respiratory Rate: 20 bpm SpO2: 97% Temperature: 37.0 (C) / 98.6 (F) 05/17/2019 Blood Pressure 1: 122/74 Code: 8480-6 Heart Rate 1: 84 bpm Respiratory Rate: 20 bpm SpO2: 98% Temperature: 37.2 (C) / 99.0 (F) We ight: 130 lbs Code: 93418-2 04/24/2019 Blood Pressure 1: 124/64 Code: 8480-6 Heart Rate 1: 93 bpm SpO2: 99% Temperature: 36.8 (C) / 98.3 (F) Weight: 134 lbs Code: 63700-5 04/10/2019 Blood Pressure 1: 128/68 Code: 8480-6 Heart Rate 1: 73 bpm SpO2: 99% Temperature: 37.2 (C) / 98.9 (F) Weight: 134 lbs Code: 20798-4 02/16/2019 Blood Pressure 1: 128/64 Code: 8480-6 Heart Rate 1: 72 bpm Respiratory Rate: 20 bpm SpO2: 97% Temperature: 36.8 (C) / 98.2 (F) We ight: 129 lbs Code: 50263-2 12/20/2018 Blood Pressure 1: 152/70 Code: 8480-6 Heart Rate 1: 87 bpm Respiratory Rate: 20 bpm SpO2: 98% Temperature: 36.9 (C) / 98.5 (F) We ight: 127 lbs Code: 60110-5 12/14/2018 Blood Pressure 1: 122/68 Code: 8480-6 Heart Rate 1: 80 bpm Respiratory Rate: 18 bpm SpO2: 96% Temperature: 36.8 (C) / 98.2 (F) 12/12/2018 Blood Pressure 1: 140/68 Code: 8480-6 Heart Rate 1: 75 bpm Respiratory Rate: 18 bpm SpO2: 97% Temperature: 36.2 (C) / 97.1 (F) We ight: 127 lbs Code: 14960-2 10/19/2018 Blood Pressure 1: 126/64 Code: 8480-6 Heart Rate 1: 88 bpm Respiratory Rate: 20 bpm SpO2: 96% Temperature: 37.1 (C) / 98.8 (F) We ight: 123 lbs Code: 22189-7 10/13/2018 Blood Pressure 1: 132/62 Code: 8480-6 He art Rate 1: 86 bpm 10/05/2018 Blood Pressure 1: 114/58 Code: 8480-6 Heart Rate 1: 72 bpm SpO2: 98% Temperature: 36.9 (C) / 98.5 (F) Weight: 120 lbs Code: 89318-2 09/28/2018 Blood Pressure 1: 126/64 Code: 8480-6 Heart Rate 1: 76 bpm Respiratory Rate: 20 bpm SpO2: 97% Temperature: 37.2 (C) / 98.9 (F) 09/26/2018 Blood Pressure 1: 132/66 Code: 8480-6 Heart Rate 1: 79 bpm Respiratory Rate: 20 bpm SpO2: 97% Temperature: 37.1 (C) / 98.7 (F) We ight: 119 lbs Code: 31960-7 09/23/2018 Blood Pressure 1: 112/64 Code: 8480-6 Heart Rate 1: 85 bpm Respiratory Rate: 20 bpm SpO2: 95% Temperature: 36.9 (C) / 98.5 (F) We ight: 119 lbs 8 oz Code: 41991-7 09/22/2018 Blood Pressure 1: 116/58 Code: 8480-6 Heart Rate 1: 88 bpm Respiratory Rate: 20 bpm SpO2: 96% Temperature: 37.9 (C) / 100. 2 (F) 09/20/2018 Blood Pressure 1: 136/70 Code: 8480-6 Heart Rate 1: 109 bpm Respiratory Rate: 20 bpm SpO2: 98% Temperature: 37.0 (C) / 98.6 (F) We ight: 122 lbs Code: 14058-9 09/15/2018 Blood Pressure 1: 134/62 Code: 8480-6 Heart Rate 1: 68 bpm Respiratory Rate: 20 bpm SpO2: 97% Temperature: 36.8 (C) / 98.2 (F) We ight: 124 lbs Code: 91930-8 09/08/2018 Blood Pressure 1: 132/62 Code: 8480-6 Heart Rate 1: 83 bpm Respiratory Rate: 18 bpm SpO2: 94% Temperature: 36.9 (C) / 98.4 (F) We ight: 123 lbs Code: 59540-7 09/05/2018 Blood Pressure 1: 142/68 Code: 8480-6 Heart Rate 1: 70 bpm Respiratory Rate: 18 bpm SpO2: 98% Temperature: 37.0 (C) / 98.6 (F) We ight: 123 lbs Code: 36578-7 03/18/2018 Blood Pressure 1: 132/62 Code: 8480-6 Heart Rate 1: 71 bpm Respiratory Rate: 18 bpm SpO2: 95% Temperature: 36.7 (C) / 98.1 (F) We ight: 126 lbs Code: 48559-3 03/03/2018 Blood Pressure 1: 148/60 Code: 8480-6 BMI: 22.5 Code: 86664-4 Heart Rate 1: 72 bpm Height: 5'4" Code: 8302-2 Respiratory Rate: 20 bpm SpO2: 96% Temperature: 36.9 (C) / 98.4 (F) Weight: 130 lbs Code: 08844-9 02/16/2018 Blood Pressure 1: 154/70 Code: 8480-6 BMI: 21.8 Code: 21663-2 Heart Rate 1: 72 bpm Height: 5'4" Code: 8302-2 Respiratory Rate: 20 bpm SpO2: 97% Temperature: 36.9 (C) / 98.5 (F) Weight: 126 lbs Code: 27761-8 01/26/2018 Blood Pressure 1: 126/78 Code: 8480-6 BMI: 21.8 Code: 08235-6 Heart Rate 1: 80 bpm Height: 5'4" Code: 8302-2 Respiratory Rate: 20 bpm SpO2: 97% Temperature: 36.6 (C) / 97.8 (F) Weight: 126 lbs Code: 63797-6 11/30/2017 Blood Pressure 1: 168/78 Code: 8480-6 BMI: 22.1 Code: 14590-6 Heart Rate 1: 64 bpm Height: 5'4" Code: 8302-2 Respiratory Rate: 20 bpm SpO2: 96% Temperature: 37.0 (C) / 98.6 (F) Weight: 128 lbs Code: 77467-8 10/20/2017 Blood Pressure 1: 146/70 Code: 8480-6 BMI: 22.1 Code: 46116-4 Heart Rate 1: 72 bpm Height: 5'4" Code: 8302-2 Respiratory Rate: 20 bpm SpO2: 97% Temperature: 36.7 (C) / 98.1 (F) Weight: 128 lbs Code: 21604-8 08/30/2017 Blood Pressure 1: 134/68 Code: 8480-6 BMI: 22.5 Code: 82532-3 Heart Rate 1: 72 bpm Height: 5'4" Code: 8302-2 Respiratory Rate: 20 bpm Temperatu re: 36.9 (C) / 98.4 (F) Weight: 130 lbs Code: 60804-0 05/25/2017 Blood Pressure 1: 144/60 Code: 8480-6 BMI: 22.3 Code: 86806-0 Heart Rate 1: 64 bpm Height: 5'4" Code: 8302-2 Respiratory Rate: 20 bpm SpO2: 95% Temperature: 36.8 (C) / 98.2 (F) Weight: 129 lbs Code: 35253-8 03/22/2017 Blood Pressure 1: 124/70 Code: 8480-6 BMI: 21.4 Code: 15599-2 Heart Rate 1: 64 bpm Height: 5'4" Code: 8302-2 Respiratory Rate: 20 bpm Temperatu re: 36.9 (C) / 98.4 (F) Weight: 124 lbs Code: 77586-3 03/08/2017 Blood Pressure 1: 142/78 Code: 8480-6 He art Rate 1: 64 bpm 01/18/2017 Blood Pressure 1: 136/64 Code: 8480-6 BMI: 21.9 Code: 54050-0 Heart Rate 1: 68 bpm Height: 5'4" Code: 8302-2 Respiratory Rate: 20 bpm SpO2: 96% Temperature: 36.8 (C) / 98.2 (F) Weight: 127 lbs Code: 36076-6 01/11/2017 Blood Pressure 1: 142/60 Code: 8480-6 Heart Rate 1: 60 bpm SpO2: 96% 01/04/2017 Blood Pressure 1: 148/70 Code: 8480-6 He art Rate 1: 68 bpm 12/28/2016 Blood Pressure 1: 132/64 Code: 8480-6 BMI: 21.4 Code: 50337-5 Heart Rate 1: 68 bpm Height: 5'4" Code: 8302-2 SpO2: 98% Weight: 124 lb s Code: 16855-4 12/24/2016 Blood Pressure 1: 138/62 Code: 8480-6 He art Rate 1: 74 bpm 12/16/2016 Blood Pressure 1: 124/64 Code: 8480-6 BMI: 21.4 Code: 48673-6 Heart Rate 1: 66 bpm Height: 5'4" Code: 8302-2 Respiratory Rate: 20 bpm SpO2: 97% Temperature: 36.8 (C) / 98.2 (F) Weight: 124 lbs Code: 31555-5 11/18/2016 Blood Pressure 1: 156/64 Code: 8480-6 BMI: 22.3 Code: 27310-4 Heart Rate 1: 64 bpm Height: 5'4" Code: 8302-2 Respiratory Rate: 20 bpm SpO2: 98% Temperature: 36.6 (C) / 97.8 (F) Weight: 129 lbs Code: 11505-6 11/04/2016 Blood Pressure 1: 112/48 Code: 8480-6 BMI: 21.6 Code: 24232-8 Heart Rate 1: 70 bpm Height: 5'4" Code: 8302-2 Respiratory Rate: 22 bpm SpO2: 98% Temperature: 36.4 (C) / 97.6 (F) Weight: 125 lbs Code: 70301-4 10/27/2016 Blood Pressure 1: 118/54 Code: 8480-6 BMI: 21.8 Code: 31058-6 Heart Rate 1: 64 bpm Height: 5'4" Code: 8302-2 Respiratory Rate: 20 bpm SpO2: 97% Temperature: 36.9 (C) / 98.4 (F) Weight: 126 lbs Code: 12418-8 10/13/2016 Blood Pressure 1: 138/82 Code: 8480-6 Heart Rate 1: 66 bpm Height: Code: 8302-2 Respiratory Rate: 20 bpm SpO2: 97% Temperature: 36 .6 (C) / 97.9 (F) Weight: Code: 70160-2 10/08/2016 Blood Pressure 1: 124/56 Code: 8480-6 BMI: 22.8 Code: 34034-4 Heart Rate 1: 76 bpm Height: 5'4" Code: 8302-2 Respiratory Rate: 20 bpm SpO2: 96% Temperature: 36.8 (C) / 98.3 (F) Weight: 132 lbs Code: 70223-9 10/05/2016 Blood Pressure 1: 126/58 Code: 8480-6 BMI: 22.6 Code: 42616-1 Heart Rate 1: 60 bpm Height: 5'4" Code: 8302-2 Respiratory Rate: 20 bpm Temperatu re: 36.7 (C) / 98.1 (F) Weight: 131 lbs Code: 80663-7 08/25/2016 Blood Pressure 1: 130/64 Code: 8480-6 Heart Rate 1: 60 bpm Respiratory Rate: 20 bpm SpO2: 96% Temperature: 37.0 (C) / 98.6 (F) We ight: 136 lbs Code: 59462-4 07/28/2016 Blood Pressure 1: 104/78 Code: 8480-6 BMI: 23.5 Code: 94035-9 Heart Rate 1: 82 bpm Height: 5'4" Code: 8302-2 Respiratory Rate: 24 bpm SpO2: 98% Temperature: 36.8 (C) / 98.2 (F) Weight: 136 lbs Code: 84829-6 06/25/2016 Blood Pressure 1: 152/66 Code: 8480-6 He art Rate 1: 60 bpm 06/23/2016 Blood Pressure 1: 198/102 Code: 8480-6 Heart Rat e 1: 62 bpm Respiratory Rate: 20 bpm SpO2: 95% Temperature: 36.6 (C) / 97.9 (F) We ight: 137 lbs Code: 31081-3 06/03/2016 Blood Pressure 1: 154/86 Code: 8480-6 BMI: 23.4 Code: 57121-3 Heart Rate 1: 56 bpm Height: 5'6" Code: 8302-2 Respiratory Rate: 20 bpm SpO2: 96% Temperature: 36.7 (C) / 98.1 (F) Weight: 143 lbs Code: 56716-2 05/26/2016 Blood Pressure 1: 124/68 Code: 8480-6 BMI: 23.6 Code: 78592-7 Heart Rate 1: 76 bpm Height: 5'6" Code: 8302-2 Respiratory Rate: 20 bpm SpO2: 96% Temperature: 36.2 (C) / 97.2 (F) Weight: 144 lbs Code: 33987-0 05/20/2016 Blood Pressure 1: 156/58 Code: 8480-6 BMI: 24.5 Code: 81838-6 Heart Rate 1: 64 bpm Height: 5'4" Code: 8302-2 Respiratory Rate: 20 bpm Temperatu re: 36.9 (C) / 98.4 (F) Weight: 142 lbs Code: 01564-9 03/19/2016 Blood Pressure 1: 144/74 Code: 8480-6 BMI: 25.9 Code: 55470-0 Heart Rate 1: 76 bpm Height: 5'4" Code: 8302-2 Respiratory Rate: 20 bpm Temperatu re: 36.8 (C) / 98.2 (F) Weight: 150 lbs Code: 11010-7 01/13/2016 Blood Pressure 1: 152/72 Code: 8480-6 BMI: 26.8 Code: 97296-2 Heart Rate 1: 64 bpm Height: 5'4" Code: 8302-2 Respiratory Rate: 20 bpm Temperatu re: 36.7 (C) / 98.1 (F) Weight: 155 lbs Code: 02050-8 12/12/2015 Blood Pressure 1: 128/68 Code: 8480-6 BMI: 26.3 Code: 79934-8 Heart Rate 1: 64 bpm Height: 5'4" Code: 8302-2 Respiratory Rate: 20 bpm Temperatu re: 36.8 (C) / 98.3 (F) Weight: 152 lbs Code: 86572-4 12/05/2015 Blood Pressure 1: 174/88 Code: 8480-6 BMI: 26.8 Code: 77431-2 Heart Rate 1: 68 bpm Height: 5'4" Code: 8302-2 Respiratory Rate: 20 bpm Temperatu re: 36.8 (C) / 98.2 (F) Weight: 155 lbs Code: 18534-9 11/27/2015 Blood Pressure 1: 188/82 Code: 8480-6 He art Rate 1: 70 bpm 10/21/2015 Blood Pressure 1: 148/80 Code: 8480-6 BMI: 27.5 Code: 65255-0 Heart Rate 1: 64 bpm Height: 5'4" Code: 8302-2 Respiratory Rate: 20 bpm Temperatu re: 36.7 (C) / 98.1 (F) Weight: 159 lbs Code: 38675-7 10/17/2015 Blood Pressure 1: 140/74 Code: 8480-6 BMI: 27.5 Code: 98502-1 Heart Rate 1: 80 bpm Height: 5'4" Code: 8302-2 Respiratory Rate: 20 bpm Temperatu re: 36.8 (C) / 98.2 (F) Weight: 159 lbs Code: 54620-6 10/07/2015 Blood Pressure 1: 174/80 Code: 8480-6 BMI: 27.5 Code: 66368-0 Heart Rate 1: 82 bpm Height: 5'4" Code: 8302-2 Respiratory Rate: 20 bpm SpO2: 97% Temperature: 36.7 (C) / 98.0 (F) Weight: 159 lbs Code: 35794-2 09/03/2015 Blood Pressure 1: 146/68 Code: 8480-6 BMI: 27.3 Code: 39168-9 Heart Rate 1: 82 bpm Height: 5'4" Code: 8302-2 Respiratory Rate: 20 bpm SpO2: 97% Temperature: 36.6 (C) / 97.9 (F) Weight: 158 lbs Code: 22182-0 08/01/2015 Blood Pressure 1: 144/78 Code: 8480-6 BMI: 26.9 Code: 88959-3 Heart Rate 1: 64 bpm Height: 5'3" Code: 8302-2 Respiratory Rate: 20 bpm Temperatu re: 36.6 (C) / 97.9 (F) Weight: 154 lbs Code: 52868-6 06/27/2015 Blood Pressure 1: 152/76 Code: 8480-6 BMI: 26.7 Code: 84310-5 Heart Rate 1: 80 bpm Height: 5'3" Code: 8302-2 Respiratory Rate: 20 bpm Temperatu re: 36.7 (C) / 98.1 (F) Weight: 153 lbs Code: 58488-1 Functional Status No Functional Status data Reason [...] COPD w/exac 2022 nasal discharge 01/27/2022 cough 01/27/2022 [place], productive postnasal drip 01/27/2022 follow up 10/28/2021 [...] having dif ficult time cutting sotalol in 1 due to size and shape. 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] Cony POOLE [address] [address] CPT- 4: 31127 10/01/2022 ([id number]) OFFICE/OUTPATIENT VISIT EST Diagnosis: Cervicalgia[ICD10: M54.2] Diagnosis: Labile hypertension[ICD10: R09.89] Diagnosis: Paroxysmal atrial fibrillation[ICD10: I48.0] Diagnosis: Hypothyroidism, unspecified[ICD10: E03.9] Cony POOLE [address] [address] CPT- 4: 02374 08/25/2022 ([id number]) OFFICE/OUTPATIENT VISIT EST Diagnosis: Dyspnea on exertion[ICD10: R06.09] Diagnosis: Chronic atrial fibrillation[ICD10: I48.20] Diagnosis: Essential hypertension[ICD10: I10] Diagnosis: COPD (chronic obstructive pulmonary disease)[ICD10: J44.9] Cony POOLE [address] [address] CPT-4: 44904 08/11/2022 ([id number]) OFFICE/OUTPATIENT VISIT EST Diagnosis: Essential (primary) hypertension[ICD10: I10] Diagnosis: Edema[ICD10: R60.9] Diagnosis: Bradycardia[ICD10: R00.1] Diagnosis: Atrial fibrillation[ICD10: I48.91] Cony POOLE DO [address] [address] CPT-4: 25263 07/28/2022 ([id number]) OFFICE/OUTPATIENT VISIT EST Diagnosis: URI (upper respiratory infection)[ICD10: J06.9] Diagnosis: Chronic airway obstruction, not elsewhere classified[ICD10: J44.9] Cony POOLE DO [address] [address] CPT-4: 38398 07/14/2022 ([id number]) OFFICE/OUTPATIENT VISIT EST Diagnosis: Atrial fibrillation[ICD10: I48.91] Diagnosis: Essential (primary) hypertension[ICD10: I10] Diagnosis: Hypothyroidism[ICD10: E03.9] Cony POOLE DO [address] [address] CPT-4: 30129 06/23/2022 ([id number]) OFFICE/OUTPATIENT VISIT EST Diagnosis: Essential (primary) hypertension[ICD10: I10] Diagnosis: Chronic atrial fibrillation[ICD10: I48.20] Diagnosis: Chronic airway obstruction, not elsewhere classified[ICD10: J44.9] Diagnosis: Hypothyroidism[ICD10: E03.9] Cony POOLE DO [address] [address] CPT-4: 85663 05/25/2022 ([id number]) OFFICE/OUTPATIENT VISIT EST Diagnosis: COPD (chronic obstructive pulmonary disease)[ICD10: J44.9] Diagnosis: Essential hypertension[ICD10: I10] Diagnosis: Hypothyroidism[ICD10: E03.9] Diagnosis: Allergic rhinitis[ICD10: J30.9] Diagnosis: Unsteady gait[ICD10: R26.81] Cony POOLE DO [address] [address] CPT-4: 72345 03/19/2022 ([id number]) OFFICE/OUTPATIENT VISIT EST Diagnosis: COPD exacerbation[ICD10: J44.1] Diagnosis: COPD (chronic obstructive pulmonary disease)[ICD10: J44.9] Cony POOLE DO [address] [address] CPT-4: 35598 02/16/2022 ([id number]) OFFICE/OUTPATIENT VISIT EST Diagnosis: COPD exacerbation[ICD10: J44.1] Cony POOLE DO [address] [address] CPT-4: 57178 2022 ([id number]) OFFICE/OUTPATIENT VISIT EST Diagnosis: Contact with and (suspected) exposure to other viral communicable diseases[ICD10: Z20.828] Diagnosis: COPD with acute lower respiratory infection[ICD10: J44.0] Keeley POOLE [address] [address] CPT-4: 13557 01/27/2022 ([id number]) OFFICE/OUTPATIENT VISIT EST Diagnosis: Essential (primary) hypertension[ICD10: I10] Diagnosis: Hypothyroidism, unspecified[ICD10: E03.9] Diagnosis: Chronic obstructive pulmonary disease, unspecified[ICD10: J44.9] Cony POOLE [address] [address] CPT-4: 19267 10/28/2021 ([id number]) OFFICE/OUTPATIENT VISIT EST Diagnosis: Essential (primary) hypertension[ICD10: I10] Diagnosis: Atrial fibrillation[ICD10: I48.91] Diagnosis: Edema[ICD10: R60.9] Diagnosis: Mixed hyperlipidemia[ICD10: E78.2] Diagnosis: Hypothyroidism[ICD10: E03.9] Diagnosis: Dyspnea[ICD10: R06.00] Diagnosis: Allergic rhinitis, unspecified[ICD10: J30.9] Cony HayesMelina NGOC DO [address] [address] CPT- 4: 51459 09/23/2021 ([id number]) OFFICE/OUTPATIENT VISIT EST Diagnosis: Essential (primary) hypertension[ICD10: I10] Diagnosis: Edema[ICD10: R60.9] Diagnosis: Stasis dermatitis[ICD10: I87.2] Diagnosis: Dyspnea[ICD10: R06.00] Cony Bowmanbonygloria HayesMelina LISA Albarran DO [address] [address] CPT-4: 35689 08/21/2021 ([id number]) OFFICE/OUTPATIENT VISIT EST Diagnosis: Essential (primary) hypertension[ICD10: I10] Diagnosis: Atrial fibrillation[ICD10: I48.91] Diagnosis: Edema[ICD10: R60.9] Cony Bowmanlea CONY AbigailMelina NGOC [address] [address] CPT-4: 13999 07/30/19 ([id number]) OFFICE/OUTPATIENT VISIT EST Diagnosis: Essential hypertension[ICD10: I10] Diagnosis: 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] Diagnosis: Reactive airway disease[ICD10: J45.909] Diagnosis: Sciatica[ICD10: M54.30] Cony Colbylea CONY AbigailMelina MIGUEL A GLORIA [address] [address] CPT-4: 15362 06/19/2021 ([id number]) NURSE/OUTPATIENT VISIT EST Diagnosis: Urinary tract infection[ICD10: N39.0] Cony Bowmanlea DANTEMARY ZARAGOZA AbigailMelnia NGOC [address] [address] CPT-4: 20799 05/12/2021 ([id number]) OFFICE/OUTPATIENT VISIT EST Diagnosis: Edema leg[ICD10: R60.0] Diagnosis: Recurrent UTI[ICD10: N39.0] 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] Conyjeannette Bowmanlea CONY [facility] [address] [place] [address] CPT-4: 96358 05/08/2021 ([id number]) OFFICE/OUTPATIENT VISIT EST Diagnosis: Cervical radiculopathy[ICD10: M54.12] Diagnosis: 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] Cony POOLE DO [facility] [employer] [address] [place] [address] CPT- 4: 70731 04/28/2021 ([id number]) OFFICE/OUTPATIENT VISIT EST Diagnosis: Other fatigue[ICD10: R53.83] Diagnosis: Hypothyroidism[ICD10: E03.9] Diagnosis: Vitamin B12 deficiency anemia, unspecified[ICD10: D51.9] Keeley POOLE DO [address] [address] CPT-4: 43961 03/19/2021 ([id number]) NURSE/OUTPATIENT VISIT EST Diagnosis: Encounter for immunization[ICD10: Z23] Cony GRADYER [address] [address] CPT-4: 23786 02/27/2021 ([id number]) OFFICE/OUTPATIENT VISIT EST Diagnosis: Atrial fibrillation[ICD10: I48.91] Diagnosis: Essential (primary) hypertension[ICD10: I10] Diagnosis: Hypothyroidism[ICD10: E03.9] Diagnosis: Lymphadenopathy of right cervical region[ICD10: R59.0] Diagnosis: Osteopenia[ICD10: M85.80] Cony WAY [address] [address] CPT-4: 94805 02/06/2021 ([id number]) OFFICE/OUTPATIENT VISIT EST Diagnosis: Skin lesion of right leg[ICD10: L98.9] Keeley BOWMANNDER [facility] [employer] [address] [place] [address] CPT-4: 02793 12/20/2020 ([id number]) OFFICE/OUTPATIENT VISIT EST Diagnosis: Nontraumatic blister of skin[ICD10: R23.8] Keeley POOLE DO [address] [address] CPT- 4: 14908 12/11/2020 ([id number]) OFFICE/OUTPATIENT VISIT EST Diagnosis: Nocturia[ICD10: R35.1] Diagnosis: Essential hypertension[ICD10: I10] Conydella OCONNELL DEVIN POOLE DO [address] [address] CPT-4: 51956 11/11/2020 ([id number]) OFFICE/OUTPATIENT VISIT EST Diagnosis: Essential hypertension[ICD10: I10] Diagnosis: Paroxysmal atrial fibrillation[ICD10: I48.0] Diagnosis: Hypothyroidism[ICD10: E03.9] Cony Colbylea CONY Jeanine POOLE DO [address] [address] CPT-4: 84524 07/29/2020 ([id number]) OFFICE/OUTPATIENT VISIT EST Diagnosis: Dizziness and giddiness[ICD10: R42] Diagnosis: Essential hypertension[ICD10: I10] Conydella OCONNELL DEVIN POOLE DO [address] [address] CPT-4: 00651 06/24/2020 ([id number]) OFFICE/OUTPATIENT VISIT EST Diagnosis: Weakness[ICD10: R53.1] Apoorva POOLE [address] [address] CPT-4: 57099 06/21/19 21 ([id number]) OFFICE/OUTPATIENT VISIT EST Diagnosis: URI (upper respiratory infection)[ICD10: J06.9] Apoorva Lindaimaldi [facility] [address] [place] [address] CPT-4: 84690 03/19/2020 ([id number]) OFFICE/OUTPATIENT VISIT EST Diagnosis: Essential (primary) hypertension[ICD10: I10] Diagnosis: Atrial fibrillation status post cardioversion[ICD10: I48.91] Diagnosis: Right upper lobe pulmonary nodule[ICD10: R91.1] Cony AVERY SMelina ORENDER DO [address] [address] CPT- 4: 86751 02/29/2020 ([id number]) OFFICE/OUTPATIENT VISIT EST Diagnosis: Stasis dermatitis[ICD10: I87.2] Apoorva BOWMANNDER DO [address] [address] CPT-4: 15681 02/22/2020 ([id number]) NURSE/OUTPATIENT VISIT EST Diagnosis: Urinary tract infection, site not specified[ICD10: N39.0] Cony Solorzano ORENDER DO [address] [address] CPT-4: 80472 02/20/2020 ([id number]) OFFICE/OUTPATIENT VISIT EST Diagnosis: Urinary tract infection[ICD10: N39.0] Apoorva ZARAGOZA SMelina BOWMANNDER DO [address] [address] CPT-4: 29857 02/13/2020 ([id number]) OFFICE/OUTPATIENT VISIT EST Diagnosis: Neck pain[ICD10: M54.2] Diagnosis: Muscle spasm[ICD10: M62.838] Cony AVERY SMelina BOWMANNDER DO [address] [address] CPT-4: 23782 2020 ([id number]) OFFICE/OUTPATIENT VISIT EST Diagnosis: Atrial fibrillation[ICD10: I48.91] Diagnosis: Essential hypertension[ICD10: I10] Diagnosis: Right wrist pain[ICD10: M25.531] Cony AVERY SMelina BOWMANNDER DO [address] [address] CPT-4: 27564 01/22/2020 ([id number]) OFFICE/OUTPATIENT VISIT EST Diagnosis: Paroxysmal atrial fibrillation[ICD10: I48.0] Diagnosis: Essential hypertension[ICD10: I10] Cony Bowmanbonygloria [facility] [address] [place] [id number] CPT-4: 63376 12/26/2019 ([id number]) OFFICE/OUTPATIENT VISIT EST Diagnosis: Lung nodule[ICD10: R91.1] Diagnosis: CHF (congestive heart failure)[ICD10: I50.9] Diagnosis: Atrial fibrillation[ICD10: I48.91] Apoorva BOWMANNDER DO [address] [address] CPT-4: 93090 11/27/2019 ([id number]) OFFICE/OUTPATIENT VISIT EST Diagnosis: Urinary tract infection[ICD10: N39.0] Diagnosis: Hypotension[ICD10: I95.9] Cony BOWMAN NDER DO [address] [address] CPT-4: 95877 11/09/2019 ([id number]) OFFICE/OUTPATIENT VISIT EST Diagnosis: Left leg swelling[ICD10: M79.89] Cony Solorzano ORENDER DO [address] [address] CPT-4: 60370 10/10/2019 ([id number]) OFFICE/OUTPATIENT VISIT EST Diagnosis: Muscle spasm[ICD10: M62.838] Cony Solorzano ORENDER DO [address] [address] CPT-4: 88578 08/25/2019 ([id number]) OFFICE/OUTPATIENT VISIT EST Diagnosis: Low back pain[ICD10: M54.5] Diagnosis: Sciatica of left side[ICD10: M54.32] Cony Solorzano ORENDER DO [address] [address] CPT-4: 77785 07/13/2019 ([id number]) OFFICE/OUTPATIENT VISIT EST Diagnosis: Pneumonia due to infectious organism[ICD10: J18.9] Cony HayesMelina ORENDER DO [facility] [employer] [address] [place] [phone] CPT- 4: 01002 05/18/2019 ([id number]) OFFICE/OUTPATIENT VISIT EST Diagnosis: Pneumonia due to infectious organism[ICD10: J18.9] Cony POOLE DO [address] [address] CPT- 4: 50656 05/17/2019 ([id number]) NURSE/OUTPATIENT VISIT EST Diagnosis: Urinary tract infection[ICD10: N39.0] Cony POOLE DO [address] [address] CPT-4: 41571 05/08/2019 ([id number]) NURSE/OUTPATIENT VISIT EST Diagnosis: Acute pharyngitis[ICD10: J02.9] Diagnosis: Altered taste[ICD10: R43.2] Cony CONDON DO [address] [address] CPT-4: 62680 05/08/2019 ([id number]) OFFICE/OUTPATIENT VISIT EST Diagnosis: Urinary tract infection, site not specified[ICD10: N39.0] Diagnosis: Stomatitis and mucositis with change of taste[ICD10: K12.1] Cony POOLE DO [address] [address] CPT-4: 15797 04/24/2019 ([id number]) NURSE/OUTPATIENT VISIT EST Diagnosis: Hematuria[ICD10: R31.9] Cony CASTRO DO [address] [address] CPT-4: 59158 04/21/2019 ([id number]) OFFICE/OUTPATIENT VISIT EST Diagnosis: Oral mucositis (ulcerative), unspecified[ICD10: K12.30] Diagnosis: Stomatitis and mucositis with change of taste[ICD10: K12.1] Cony POOLE DO [address] [address] CPT-4: 67922 04/10/2019 ([id number]) NURSE/OUTPATIENT VISIT EST Diagnosis: FLU VACCINE[ICD10: Z23] [facility] [address] [place] [address] CPT-4: 72449 03/02/2019 ([id number]) OFFICE/OUTPATIENT VISIT EST Diagnosis: Essential (primary) hypertension[ICD10: I10] Diagnosis: Other fatigue[ICD10: R53.83] Diagnosis: Hypothyroidism, unspecified[ICD10: E03.9] Diagnosis: Nocturia[ICD10: R35.1] [facility]y Albarran [facility] [address] [place] [address] CPT-4: 34183 02/16/2019 ([id number]) NURSE/OUTPATIENT VISIT EST Diagnosis: Essential (primary) hypertension[ICD10: I10] Cony POOLE DO [address] [address] CPT- 4: 60256 01/24/2019 ([id number]) OFFICE/OUTPATIENT VISIT EST Diagnosis: Acute upper respiratory infection, unspecified[ICD10: J06.9] Apoorva [facility] [address] [place] [address] CPT-4: 98692 12/20/2018 ([id number]) OFFICE/OUTPATIENT VISIT EST Diagnosis: Paroxysmal atrial fibrillation[ICD10: I48.0] Diagnosis: Other fatigue[ICD10: R53.83] Diagnosis: Essential (primary) hypertension[ICD10: I10] Diagnosis: Hypothyroidism, unspecified[ICD10: E03.9] [facility] [address] [place] [address] CPT- 4: 38890 12/12/2018 ([id number]) OFFICE/OUTPATIENT VISIT EST Diagnosis: Essential (primary) hypertension[ICD10: I10] Diagnosis: Allergic rhinitis due to pollen[ICD10: J30.1] Cony P[facility] [address] [place] [address] CPT- 4: 65454 10/19/2018 ([id number]) OFFICE/OUTPATIENT VISIT EST Diagnosis: Allergic rhinitis due to pollen[ICD10: J30.1] Diagnosis: Essential (primary) hypertension[ICD10: I10] Cony POOLE [address] [address] CPT- 4: 39740 10/05/2018 ([id number]) OFFICE/OUTPATIENT VISIT EST Diagnosis: Allergic rhinitis due to pollen[ICD10: J30.1] Diagnosis: Other fatigue[ICD10: R53.83] Diagnosis: Hematuria, unspecified[ICD10: R31.9] Cony POOLE [address] [address] CPT-4: 43893 09/28/2018 ([id number]) OFFICE/OUTPATIENT VISIT EST Diagnosis: Allergic rhinitis due to pollen[ICD10: J30.1] Diagnosis: Cough[ICD10: R05] Diagnosis: Dermatitis, unspecified[ICD10: L30.9] Diagnosis: Slow transit constipation[ICD10: K59.01] Cony POOLE [address] [address] CPT- 4: 78155 09/26/2018 ([id number]) OFFICE/OUTPATIENT VISIT EST Diagnosis: Acute bronchitis, unspecified[ICD10: J20.9] Diagnosis: Other specified respiratory disorders[ICD10: J98.8] Merry Justiceyaw POOLE DO [address] [address] CPT- 4: 35360 09/23/2018 ([id number]) OFFICE/OUTPATIENT VISIT EST Diagnosis: Acute bronchitis, unspecified[ICD10: J20.9] Diagnosis: Fever, unspecified[ICD10: R50.9] Cony POOLE [address] [address] CPT-4: 93829 09/22/2018 ([id number]) OFFICE/OUTPATIENT VISIT EST Diagnosis: Tachycardia, unspecified[ICD10: R00.0] Diagnosis: Dysuria[ICD10: R30.0] Diagnosis: Personal history of urinary (tract) infections[ICD10: Z87.440] Merry POOLE DO [address] [address] CPT-4: 26773 09/20/2018 ([id number]) OFFICE/OUTPATIENT VISIT EST Diagnosis: Other fatigue[ICD10: R53.83] Diagnosis: Hypothyroidism, unspecified[ICD10: E03.9] Cony POOLE DO [address] [address] CPT- 4: 77860 09/15/2018 ([id number]) NURSE/OUTPATIENT VISIT EST Diagnosis: Urinary tract infection, site not specified[ICD10: N39.0] Cony POOLE DO [address] [address] CPT-4: 95020 09/14/2018 ([id number]) OFFICE/OUTPATIENT VISIT EST Diagnosis: Chronic fatigue, unspecified[ICD10: R53.82] Diagnosis: Essential (primary) hypertension[ICD10: I10] Diagnosis: Hypothyroidism, unspecified[ICD10: E03.9] Diagnosis: Paroxysmal atrial fibrillation[ICD10: I48.0] Cony POOLE DO [address] [address] CPT- 4: 47070 09/08/2018 ([id number]) OFFICE/OUTPATIENT VISIT EST Diagnosis: Dysuria[ICD10: R30.0] Diagnosis: Personal history of urinary (tract) infections[ICD10: Z87.440] Merry POOLE DO [address] [address] CPT-4: 71309 09/05/2018 ([id number]) NURSE/OUTPATIENT VISIT EST Diagnosis: Essential (primary) hypertension[ICD10: I10] Diagnosis: Edema, unspecified[ICD10: R60.9] Cony POOLE [address] [address] CPT-4: 74657 04/20/2018 ([id number]) OFFICE/OUTPATIENT VISIT EST Diagnosis: FLU VACCINE[ICD10: Z23] Diagnosis: Hypothyroidism, unspecified[ICD10: E03.9] Diagnosis: Essential (primary) hypertension[ICD10: I10] Diagnosis: Localized edema[ICD10: R60.0] Cony POOLE DO [address] [address] CPT-4: 92783 03/03/2018 ([id number]) OFFICE/OUTPATIENT VISIT EST Diagnosis: Atopic dermatitis, unspecified[ICD10: L20.9] Apoorva POOLE DO [address] [address] CPT- 4: 54183 02/16/2018 ([id number]) OFFICE/OUTPATIENT VISIT EST Diagnosis: Pressure ulcer of right heel, stage 1[ICD10: L89.611] Diagnosis: Other fatigue[ICD10: R53.83] Apoorva POOLE DO [address] [address] CPT-4: 86748 01/26/2018 OFFICE/OUTPATIENT VISIT EST Diagnosis: Hypothyroidism, unspecified[ICD10: E03.9] Diagnosis: Essential (primary) hypertension[ICD10: I10] Diagnosis: Localized edema[ICD10: R60.0] Diagnosis: Other fatigue[ICD10: R53.83] Cony POOLE DO [address] [address] CPT-4: 21756 11/30/2017 ([id number]) OFFICE/OUTPATIENT VISIT EST Diagnosis: Other seborrheic keratosis[ICD10: L82.1] Cony POOLE DO [address] [address] CPT- 4: 75282 11/04/2017 ([id number]) OFFICE/OUTPATIENT VISIT EST Diagnosis: Achilles tendinitis, right leg[ICD10: M76.61] Apoorva POOLE DO [address] [place] [address] CPT- 4: 76173 10/20/2017 ([id number]) OFFICE/OUTPATIENT VISIT EST Diagnosis: Essential (primary) hypertension[ICD10: I10] Diagnosis: Hypothyroidism, unspecified[ICD10: E03.9] Diagnosis: Weakness[ICD10: R53.1] Cony Albarran [address] [address] CPT-4: 99846 08/30/2017 ([id number]) OFFICE/OUTPATIENT VISIT EST Diagnosis: Hypothyroidism, unspecified[ICD10: E03.9] Diagnosis: Essential (primary) hypertension[ICD10: I10] Diagnosis: Paroxysmal atrial fibrillation[ICD10: I48.0] Cony POOLE [address] [address] CPT- 4: 86262 05/25/2017 ([id number]) OFFICE/OUTPATIENT VISIT EST Diagnosis: Essential (primary) hypertension[ICD10: I10] Diagnosis: Hypothyroidism, unspecified[ICD10: E03.9] Cony POOLE [address] [address] CPT- 4: 42681 03/22/2017 ([id number]) OFFICE/OUTPATIENT VISIT EST Diagnosis: FLU VACCINE[ICD10: Z23] Cony CASTRO [address] [address] CPT-4: 73751 03/08/2017 ([id number]) OFFICE/OUTPATIENT VISIT EST Diagnosis: Essential (primary) hypertension[ICD10: I10] Diagnosis: Hypothyroidism, unspecified[ICD10: E03.9] Cony POOLE [address] [address] CPT- 4: 33907 01/18/2017 ([id number]) OFFICE/OUTPATIENT VISIT EST Diagnosis: Essential (primary) hypertension[ICD10: I10] Diagnosis: Localized edema[ICD10: R60.0] Diagnosis: Hypotension, unspecified[ICD10: I95.9] Cony POOLE DO [address] [address] CPT-4: 28731 12/16/2016 ([id number]) OFFICE/OUTPATIENT VISIT EST Diagnosis: Hypothyroidism, unspecified[ICD10: E03.9] Diagnosis: Essential (primary) hypertension[ICD10: I10] Cony POOLE DO [address] [address] CPT- 4: 80369 11/18/2016 ([id number]) OFFICE/OUTPATIENT VISIT EST Diagnosis: Hypotension due to drugs[ICD10: I95.2] Diagnosis: Lymphangitis[ICD10: I89.1] Diagnosis: Hypothyroidism, unspecified[ICD10: E03.9] Cony POOLE DO [address] [address] CPT- 4: 92638 11/04/2016 ([id number]) OFFICE/OUTPATIENT VISIT EST Diagnosis: Hypotension due to drugs[ICD10: I95.2] Diagnosis: Other fatigue[ICD10: R53.83] Cony POOLE DO [address] [address] CPT-4: 82670 10/27/2016 ([id number]) OFFICE/OUTPATIENT VISIT EST Diagnosis: Other symptoms and signs involving the genitourinary system[ICD10: R39.89] Cony POOLE DO [address] [address] CPT-4: 00041 10/26/2016 OFFICE/OUTPATIENT VISIT EST Diagnosis: Venous insufficiency (chronic) (peripheral)[ICD10: I87.2] Diagnosis: Lymphangitis[ICD10: I89.1] Diagnosis: Cellulitis of left lower limb[ICD10: L03.116] Cony POOLE DO [address] [address] CPT- 4: 81239 10/13/2016 OFFICE/OUTPATIENT VISIT EST Diagnosis: Cellulitis of left lower limb[ICD10: L03.116] Diagnosis: Lymphangitis[ICD10: I89.1] Cony STEVENSLINE Jeanine MOCTEZUMA [address] [address] CPT-4: 58876 10/08/2016 ([id number]) OFFICE/OUTPATIENT VISIT EST Diagnosis: Hypothyroidism, unspecified[ICD10: E03.9] Diagnosis: Essential (primary) hypertension[ICD10: I10] Diagnosis: Other fatigue[ICD10: R53.83] Diagnosis: Cellulitis of left lower limb[ICD10: L03.116] Cony HOWELLQUELINE AbigailMelina NGOC [address] [address] CPT- 4: 59359 10/05/2016 ([id number]) OFFICE/OUTPATIENT VISIT EST Diagnosis: Essential (primary) hypertension[ICD10: I10] Diagnosis: Localized edema[ICD10: R60.0] Diagnosis: Other fatigue[ICD10: R53.83] Cony Poole CONY AbigailMelina NGOC [address] [address] CPT-4: 40561 08/25/2016 ([id number]) OFFICE/OUTPATIENT VISIT EST Diagnosis: Essential (primary) hypertension[ICD10: I10] Diagnosis: Hypothyroidism, unspecified[ICD10: E03.9] Diagnosis: Weakness[ICD10: R53.1] Cony Colbylea Solorzano COLBYRY Deion [address] [address] CPT-4: 66389 07/28/2016 ([id number]) OFFICE/OUTPATIENT VISIT EST Diagnosis: Essential (primary) hypertension[ICD10: I10] Merlesiria Solorzano COLBYBONYGLORIA [address] [address] CPT- 4: 73469 06/23/2016 ([id number]) OFFICE/OUTPATIENT VISIT EST Diagnosis: Cough[ICD10: R05] Diagnosis: Essential (primary) hypertension[ICD10: I10] Merle Solorzano [address] [address] CPT- 4: 81706 06/03/2016 ([id number]) OFFICE/OUTPATIENT VISIT EST Diagnosis: Acute upper respiratory infection, unspecified[ICD10: J06.9] Diagnosis: Fever, unspecified[ICD10: R50.9] Merle GRADY[address] [address] CPT-4: 29853 05/26/2016 ([id number]) OFFICE/OUTPATIENT VISIT EST Diagnosis: Essential (primary) hypertension[ICD10: I10] Diagnosis: Paroxysmal atrial fibrillation[ICD10: I48.0] Diagnosis: Venous insufficiency (chronic) (peripheral)[ICD10: I87.2] Diagnosis: Primary insomnia[ICD10: F51.01] Diagnosis: Hypothyroidism, unspecified[ICD10: E03.9] Cony GRADY[address] [address] CPT- 4: 18295 05/20/2016 ([id number]) OFFICE/OUTPATIENT VISIT EST Diagnosis: Pain in right ankle and joints of right foot[ICD10: M25.571] Diagnosis: Venous insufficiency (chronic) (peripheral)[ICD10: I87.2] Diagnosis: FLU VACCINE[ICD10: Z23] Cony GRADY [address] [address] CPT-4: 33129 03/19/2016 ([id number]) OFFICE/OUTPATIENT VISIT EST Diagnosis: Essential (primary) hypertension[ICD10: I10] Diagnosis: Localized edema[ICD10: R60.0] Diagnosis: Paroxysmal atrial fibrillation[ICD10: I48.0] Diagnosis: PNEUMOCOCCAL VACCINE[ICD10: Z23] Cony GRADY[address] [address] CPT-4: 21461 01/13/2016 ([id number]) OFFICE/OUTPATIENT VISIT EST Diagnosis: Hypo-osmolality and hyponatremia[ICD10: E87.1] Diagnosis: Essential (primary) hypertension[ICD10: I10] Diagnosis: Paroxysmal atrial fibrillation[ICD10: I48.0] Cony POOLE [address] [address] CPT- 4: 44930 12/12/2015 ([id number]) OFFICE/OUTPATIENT VISIT EST Diagnosis: Essential (primary) hypertension[ICD10: I10] Diagnosis: Edema, unspecified[ICD10: R60.9] Diagnosis: Hypo-osmolality and hyponatremia[ICD10: E87.1] Cony POOLE [address] [address] CPT- 4: 58691 12/05/2015 ([id number]) OFFICE/OUTPATIENT VISIT EST Diagnosis: Hypo-osmolality and hyponatremia[ICD10: E87.1] Diagnosis: Hematuria, unspecified[ICD10: R31.9] Cony POOLE [address] [address] CPT-4: 12599 11/27/2015 ([id number]) OFFICE/OUTPATIENT VISIT EST Diagnosis: Essential (primary) hypertension[ICD10: I10] Diagnosis: Edema, unspecified[ICD10: R60.9] Diagnosis: Dizziness and giddiness[ICD10: R42] Merle David POOLE [address] [address] CPT-4: 28457 10/21/2015 ([id number]) OFFICE/OUTPATIENT VISIT EST Diagnosis: Essential (primary) hypertension[ICD10: I10] Diagnosis: Localized edema[ICD10: R60.0] Diagnosis: Paroxysmal atrial fibrillation[ICD10: I48.0] Cony POOLE [address] [address] CPT- 4: 51433 10/17/2015 ([id number]) OFFICE/OUTPATIENT VISIT EST Diagnosis: Essential (primary) hypertension[ICD10: I10] Diagnosis: Tachycardia, unspecified[ICD10: R00.0] Diagnosis: Hypothyroidism, unspecified[ICD10: E03.9] Diagnosis: Palpitations[ICD10: R00.2] Merle MOCTEZUMA DO [address] [address] CPT-4: 16240 10/07/2015 ([id number]) OFFICE/OUTPATIENT VISIT EST Diagnosis: Acute upper respiratory infection, unspecified[ICD10: J06.9] Merle POOLE DO [address] [address] CPT-4: 98375 09/03/2015 ([id number]) OFFICE/OUTPATIENT VISIT EST Diagnosis: Essential (primary) hypertension[ICD10: I10] Cony POOLE DO [address] [address] CPT- 4: 80054 08/01/2015 OFFICE/OUTPATIENT VISIT NEW Diagnosis: Essential (primary) hypertension[ICD10: I10] Diagnosis: Hypothyroidism, unspecified[ICD10: E03.9] Diagnosis: Family history of malignant neoplasm of breast[ICD10: Z80.3] Cony POOLE DO [address] [address] CPT-4: 93567 06/27/2015 Plan of Care Planned Activity Notes Codes Status Date Visit Diagnosis Plan: Stress and adjustment reaction D iscussion: Trial of effexor XR 37.5mg po q HS Fwup 1month ICD-9 : 309.89 ICD-10 : F43.29 10/01/2022 Visit Diagnosis Plan: Hypothyroidism, unspecified Disc [...] 401.9 ICD-10 : R09.89 08/25/2022 Appointment: Cony Pooletel: [address] [place], [place] [phone] US FOLLOW UP 08/25/2022 Care Plan: X-RAY EXAM NECK SPINE 4/5VWS LOINC : 44124-1 Pending 08/25/2022 Visit Diagnosis Plan: Chronic atrial [...] ICD-10 : J44.9 08/11/2022 Appointment: Cony Pooletel: [address] [place], [place] [phone] FOLLOW UP 08/11/2022 Appointment: Cony Poole WPtel: [address] [place], [place] [phone] US RESCHEDULED 08/11/2022 Visit Diagnosis Plan: Edema [...] : R00.1 07/28/2022 Appointment: Cony Poole WPtel: [phone] FOLLOW UP 07/28/2022 Patient Education: hydralazine- [employer] Coupon [id number] Completed 07/28/2022 Patient Education: losartan- [employer] Coupon [id number] Completed 07/28/2022 Visit Diagnosis Plan: URI (upper respiratory infection ) Discussion: Influenza A and B and Covid negative Z-pack Continue budesonide and perforomist and add albuterol at least TID Notify if worsening ICD-9 : 465.9 ICD-10 : J06.9 07/14/2022 Appointment: Cony Poole WPtel: [address] [place], [place] [phone] ACUTE ILLNESS 07/14/2022 Visit Diagnosis Plan: Hypothyroidism [...] : I10 06/23/2022 Appointment: Cony Poole WPtel: [address] [place], [place] [phone] FOLLOW UP 06/23/2022 Visit Diagnosis Plan: Hypothyroidism [...] I10 05/25/2022 [facility]ointment: [facility] [phone] [phone] [facility] 05/25/2022 Patient Education: losartan- [employer] Coupon [id number] [email or web address]/resources/getResource/61/[email or web address] Completed 05/25/2022 Visit Diagnosis Plan: Essential hypertension [...] E03.9 03/19/2022 Appointment: Con[facility]el[facility] [phone] [phone] FO[facility] UP 03/19/2022 Visit Diagnosis Plan: COPD exacerbation Discussion: Co ntinue budesonide/performomist and use albuterol prn as rescue Go for COVID booster Flu shot in March Fwup 1month ICD-9 : 491.21 ICD-10 : J44.1 02/16/2022 Appointment: Cony Poole WPtel: [phone] [phone] FOLLOW UP 02/16/2022 Visit Diagnosis Plan: COPD exacerbation Discussion: Co ntinue breztri 2p BID and albuterol prn Will switch to Nebulizer with Budesonide 0.5mg BID and Perforomist 20mcg BID with duoneb q4hrs prn Fwup 2 weeks unless worsening ICD-9 : 491.21 ICD-10 : J44.1 2022 Appointment: Cony Poole WPtel: [phone] [phone] FOLLOW UP 2022 Visit Diagnosis Plan: [...] J44.0 01/27/2022 Appointment: Keeley Johnson WPtel: [phone] [phone] ACUTE ILLNESS 01/27/2022 Patient Education: Patient Medication Summary Completed 01/27/2022 Referral: Soy Rodriguez WPtel: [facility] [address] [place] [address] [address] [id number] [place] 09/30 - for office Completed 10/29/2021 Visit [...] : E03.9 10/28/2021 Appointment: Cony Poole WPtel: [address] [place], [place] [phone] US FOLLOW UP 10/28/2021 Visit Diagnosis Plan: [...] : R06.00 09/23/2021 Appointment: Cony Poole WPtel: [address] [place], [place] [phone] US FOLLOW UP 09/23/2021 Appointment: Cony Poole WPtel: [address] [place], [place] [phone] US CANCELED 09/08/2021 Visit Diagnosis Plan: Essential [...] : I87.2 08/21/2021 Appointment: Cony Poole WPtel: [address] [place], [place] [phone] US FOLLOW UP 08/21/2021 Appointment: Keeley Johnson WPtel: [phone] [phone] US CANCELED 08/12/2021 Visit Diagnosis Plan: Essential (primary) hypertension Discussion: Stable ICD-9 : 401.9 ICD-10 : I10 07/30/2021 Visit Diagnosis Plan: Atrial fibrillation Discussion: On cardizem and eliquis and rate controlled and asympotomatic Sees Dr Lopez in 2 weeks ICD-9 : 427.31 ICD-10 : I48.91 07/30/2021 Appointment: Cony Poole WPtel: [address] [place], [place] [phone] US FOLLOW UP 07/30/2021 Appointment: Cony Poole WPtel: [address] [place], [place] [phone] [place] due to weather CANCELED 07/24/2021 Visit [...] : J45.909 06/19/2021 Appointment: Cony Poole WPtel: [address] [place], [place] [phone] FOLLOW UP 06/19/2021 Appointment: Cony Poole WPtel: [address] [place], [place] [phone] US seen 05/08/21 at 1 pm by doctor as appt opened up CANCELED 05/14/2021 Appointment: Cony Poole WPtel: [address] [place], [place] [phone] UA 05/12/2021 Visit Diagnosis Plan: Recurrent UTI [...] : R60.0 05/08/2021 Appointment: Cony Poole WPtel: [address] [place], [place] [phone] ACUTE ILLNESS 05/08/2021 Visit Diagnosis Plan: Cervical radiculopathy Discussio n: Start PT ICD-9 : 723.4 ICD-10 : M54.12 04/28/2021 Visit Diagnosis Plan: Stress and adjustment reaction D iscussion: Stress Reducers Discussed Discussion: Stress Reducers Discussed meds ICD-9 : 309.89 ICD-10 : F43.29 04/28/2021 Appointment: Cony Poole WPtel: [address] [place], [place] [phone] ACUTE ILLNESS 04/28/2021 Appointment: Cony Poole WPtel: [address] [place], [place] [phone] US RESCHEDULED 03/25/2021 Visit Diagnosis Plan: Other fatigue Discussion: Will r echeck thyroid labs as previously scheduled, B12, and ferritin level per Dr. Brown- discussed could be causing fatigue. Will f/u after labs or sooner for worsening/concerns. ICD-9 : 780.79 ICD-10 : R53.83 03/19/2021 Appointment: Keeley Johnson WPtel: [phone] [phone] ACUTE ILLNESS 03/19/2021 Patient Education: Patient Medication Summary Completed 03/19/2021 Appointment: Cony Poole WPtel: [address] [place], [place] [phone] US INJECTION 02/27/2021 Visit Diagnosis Plan: Essential [...] : I48.91 02/06/2021 Appointment: Cony Poole WPtel: [address] [place], [place] [phone] ACUTE ILLNESS 02/06/2021 Care Plan: US EXAM OF HEAD AND NECK LOIN C : 54731-8 Pending 02/06/2021 Care Plan: DXA BONE DENSITY AXIAL LOINC : 12405-9 Pending 02/06/2021 Appointment: Keeley Jhonson WPtel: [phone] [phone] US CANCELED 12/24/2020 Visit Diagnosis Plan: Skin lesion of right leg Discuss ion: Appears to be healing- is smaller, no s/s of infection. Will f/u if does not improve or worsens. ICD-9 : 709.9 ICD-10 : L98.9 12/20/2020 Appointment: Keeley Johnson WPtel: [phone] [phone] OFFICE SURGERY 12/20/2020 Patient Education: Patient Medication Summary Completed 12/20/2020 Visit Diagnosis Plan: Nontraumatic blister of skin Dis cussion: Small isolated lesion, no s/s of infection. Bandaid and neosporin applied. 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 F/U for worsening/concerns or if more lesions appear. ICD-9 : 709.8 ICD-10 : R23.8 12/11/2020 Appointment: Keeley Johnson WPtel: [phone] [phone] ACUTE ILLNESS 12/11/2020 Patient Education: Patient [...] : R35.1 11/11/2020 Appointment: Cony Poole WPtel: [phone] [phone] ACUTE ILLNESS 11/11/2020 Appointment: Cony Poole WPtel: [phone] [phone] CANCELED 11/11/2020 Visit Diagnosis Plan: Inflamed seborrheic keratosis Di scussion: Cryotherapy as above ICD-9 : 702.11 ICD-10 : L82.0 09/05/2020 Appointment: Cony Poole WPtel: [phone] ACUTE ILLNESS 09/05/2020 Visit Diagnosis Plan: Essential hypertension Discussio n: Stable ICD-9 : 401.9 ICD-10 : I10 07/29/2020 Visit Diagnosis Plan: Paroxysmal atrial fibrillation D iscussion: On eliquis ICD-9 : 427.31 ICD-10 : I48.0 07/29/2020 Visit Diagnosis Plan: Hypothyroidism Discussion: Lab d iscussed Will recheck lab in 2mos ICD-9 : 244.9 ICD-10 : E03.9 07/29/2020 Appointment: Cony Poole WPtel: [address] [place], [place] [phone] FOLLOW UP 07/29/2020 Visit Diagnosis Plan: Dizziness and giddiness Discussi on: Continue increased dose of Cardizem ER 120mg po BID and monitor BP/pulse Has LINQ device in place Discussed Kardia EKG Follow Up: 1 months ICD-9 : 780.4 ICD-10 : R42 06/24/2020 Appointment: Cony Poole WPtel: [phone] Hospital Follow Up 06/24/2020 Visit Diagnosis Plan: [...] : R53.1 06/21/2020 Appointment: Apoorva Rueda [address] [facility] TELEMEDICINE 06/21/2020 Visit Diagnosis Plan: URI (upper [...] : J06.9 03/19/2020 Appointment: Apoorva Rueda [address] [facility] TELEMEDICINE 03/19/2020 Visit Diagnosis Plan: Atrial [...] I10 02/29/2020 Appointment: Cony Poole WPtel: [phone] [phone] FOLLOW UP 02/29/2020 Care Plan: CT THORAX [...] : 454.1 ICD-10 : I87.2 02/22/2020 Appointment: Mohit, Apoorva R. [address] [place], [place] [phone] ACUTE ILLNESS 02/22/2020 Appointment: Cony Poole WPtel: [address] [place], [place] [phone] 02/20/2020 Visit Diagnosis Plan: Urinary tract infection Discussi on: based on patient's age and length of illness, clinical s/s, will give 1 gm rocephin in office. urine sent for culture. push fluids and call office with new or worsening symptoms. ICD-9 : 599.0 ICD-10 : N39.0 02/13/2020 Appointment: Apoorva Rueda [address] [place], [place] [phone] ACUTE ILLNESS 02/13/2020 Visit Diagnosis Plan: Neck pain Discussion: Daily stre tches Moist heat Topical muscle rub Can use baclofen 1/2 tab during day and full tab at night ICD-9 : 723.1 ICD-10 : M54.2 2020 Appointment: Cony Poole WPtel: [address] [place], [place] [phone] ACUTE ILLNESS 2020 Visit Diagnosis Plan: Atrial [...] : M25.531 01/22/2020 Appointment: Cony Poole WPtel: [address] [place], [place] [phone] FOLLOW UP 01/22/2020 Visit Diagnosis Plan: Paroxysmal atrial fibrillation D iscussion: Stable with new meds Follow Up: 1 months ICD-9 : 427.31 ICD-10 : I48.0 12/26/2019 Visit Diagnosis Plan: Essential hypertension Discussio n: Stable ICD-9 : 401.9 ICD-10 : I10 12/26/2019 Appointment: Cony Poole WPtel: [address] [place], [place] [phone] Hospital Follow Up 12/26/2019 Appointment: Cony Poole WPtel: [address] [phone] US CANCELED 12/25/2019 Visit Diagnosis Plan: [...] ICD-10 : I50.9 11/27/2019 Appointment: Apoorva Rueda [address] [place], [place] [phone] FOLLOW UP 11/27/2019 Visit Diagnosis Plan: Hypotension Discussion: Decrease amlodopine to once daily Monitor home BP/pulse and report readings in 2 weeks ICD-9 : 458.9 ICD-10 : I95.9 11/09/2019 Visit Diagnosis Plan: Urinary tract infection Discussi on: Cefdinir Culture urine ICD-9 : 599.0 ICD-10 : N39.0 11/09/2019 Appointment: Apoorva Rueda [address] [facility] CANCELED 11/09/2019 Appointment: Cony Poole WPtel: [address] [phone] ACUTE ILLNESS 11/09/2019 Patient Education: cefdinir- [employer] Coupon [id number] [email or web address]/samplemd/resources/getResource/61/[email or web address] Completed 11/09/2019 Visit Diagnosis Plan: Left leg swelling Discussion: St at LLE doppler now ICD-9 : 729.81 ICD-10 : M79.89 10/10/2019 Appointment: Cony Poole WPtel: [address] [place] [address] ACUTE ILLNESS 10/10/2019 Visit Diagnosis Plan: Muscle spasm Discussion: Can use tylenol 325mg po TID Topical muscle rub Baclofen 10mg 1/2-1 po q HS for spasm but hold temazepam while taking Notify if worsening or persists Stretches/Moist Heat ICD-9 : 728.85 ICD-10 : M62.838 08/25/2019 Appointment: Cony Poole WPtel: [address] [place] [address] TELEMEDICINE 08/25/2019 Patient Education: baclofen- [employer] Coupon [id number] https://www.[employer]/samplemd/resources/getResource/61/[email or web address]-2pu0-1w Completed 08/25/2019 Visit Diagnosis Plan: Low back pain Discussion: Check L/S spine x-rays ICD-9 : 724.2 ICD-10 : M54.5 07/13/2019 Visit Diagnosis Plan: Sciatica of left side Discussion : Will likely start with PT pending x-ray results ICD-9 : 724.3 ICD-10 : M54.32 07/13/2019 Appointment: Cony Poole WPtel: [address] [place], [place] [address] ACUTE ILLNESS 07/13/2019 Care Plan: X-RAY EXAM L-S SPINE 2/3 VWS LOINC : 66786-8 Pending 07/13/2019 Visit Diagnosis Plan: Pneumonia due to infectious orga nism Discussion: Repeat rocephin 1gm IM today Start cefdinir tomorrow To ER this weekend if worsens ICD-9 : 486 ICD-10 : J18.9 05/18/2019 Appointment: Cony Poole WPtel: [address] [place], [place] [phone] US FOLLOW UP 05/18/2019 Patient Education: cefdinir- [employer] Coupon [id number] https://www.[employer]/resources/getResource/61/5x58f01d-18b3-99f9-q3 Completed 05/18/2019 Patient Education: temazepam- [employer] Coupon [id number] https://www.[employer]/resources/getResource/61/tu6x36vy-0634-9sc6-9g Completed 05/18/2019 Patient Education: Synthroid- [employer] Coupon [id number] https://www.[employer]/resources/getResource/61/40558bxk-po78-3r20-21 Completed 05/18/2019 Patient Education: Cytomel- [employer] Coupon [id number] https://www.[employer]/resources/getResource/61/mm18vg76-123m-292w-j9 Completed 05/18/2019 Visit Diagnosis Plan: Pneumonia due to infectious orga nism Discussion: Rocephin 1gm IM now Recheck tomorrow ICD-9 : 486 ICD-10 : J18.9 05/17/2019 Appointment: Cony Poole WPtel: [address] [place], [place] [phone] US FOLLOW UP 05/17/2019 Appointment: Cony Poole WPtel: [address] [place], [place] [phone] 05/10/19 1630---see note in chart related to throat culture (km) CANCELED 05/10/2019 Appointment: Cony Poole WPtel: [address] [place] [address] 05/08/2019 Appointment: Cony Poole WPtel: [address] [place], [place] [address] NURSE SERVICES 05/08/2019 Visit Diagnosis Plan: Stomatitis [...] : N39.0 04/24/2019 Appointment: Cony Poole WPtel: [address] [place] [address] FOLLOW UP 04/24/2019 Patient Education: nystatin- [employer] Coupon [id number] https://www.[employer]/resources/getResource/61/i075870w-[email or web address]-t1 Completed 04/24/2019 Appointment: Cony Poole WPtel: [address] [place], [place] [address] [facility] 04/21/2019 Visit Diagnosis Plan: Stomatitis and mucositis with ch bry of taste Discussion: Diflucan and nystatin susp Discussed oral biopsy ICD-9 : 528.00 ICD-10 : K12.1 04/10/2019 Appointment: Cony Poole WPtel: [address] [place], [place] [address] ACUTE ILLNESS 04/10/2019 Patient Education: nystatin- [employer] Coupon [id number] https://www.[employer]/resources/getResource/61/8kbyey25-15q2-5370-sn Completed 04/10/2019 Appointment: Cony Poole WPtel: [address] [place], [place] [phone] US INJECTION 03/02/2019 Patient Education: INFLUENZA VACCINE [...] : R35.1 02/16/2019 Appointment: Cony Poole WPtel: [address] [place] [address] ACUTE ILLNESS 02/16/2019 Appointment: Cony Poole WPtel: [address] [place], [place] [phone] NO SHOW - FORGIVEN 02/15/2019 Appointment: Cony Poole WPtel: [address] [place], [place] [address] BP CHECK 01/24/2019 Visit Diagnosis Plan: Acute upper respiratory infectio n, unspecified Discussion: cefdinir bid for 7 days. instructed to continue with allergy medications daily. call or rtc with new or worsening symptoms. ICD-9 : 465.9 ICD-10 : J06.9 12/20/2018 Appointment: Apoorva Rueda [address] [place], [place] [address]a [address] ACUTE ILLNESS 12/20/2018 Visit Diagnosis Plan: Impacted cerumen, right ear Disc ussion: ear canal cleaned out with lavage. patient tolerated well and had immediate relief of hearing loss. no issues voiced. ICD-9 : 380.4 ICD-10 : H61.21 12/14/2018 Appointment: Apoorva Rueda [address] [place], [place] [address] ACUTE ILLNESS 12/14/2018 Visit Diagnosis Plan: Essential [...] : I48.0 12/12/2018 Appointment: Cony Poole WPtel: [address] [place], [place] [address] US FOLLOW UP 12/12/2018 Visit Diagnosis Plan: Essential (primary) hypertension Discussion: Stable Patient sees cardiology next week--has been off sotalol since 09/15/18 and BP and pulse have been stable ICD-9 : 401.9 ICD-10 : I10 10/19/2018 Appointment: Cony Poole WPtel: [address] [place], [place] [phone] FOLLOW UP 10/19/2018 Appointment: Cony Poole WPtel: [address] [place] [address] US BP CHECK 10/13/2018 Visit Diagnosis Plan: Allergic rhinitis due to pollen Discussion: Continue zyrtec ICD-9 : 477.9 ICD-10 : J30.1 10/05/2018 Visit Diagnosis Plan: Essential (primary) hypertension Discussion: Stable Recheck 2 weeks ICD-9 : 401.9 ICD-10 : I10 10/05/2018 Appointment: Cony Poole WPtel: [address] [place] [address] US FOLLOW UP 10/05/2018 Patient Education: Synthroid- [employer] Coupon [id number] https://www.[employer]thinktank.net/resources/getResource/61/ish28911-l277-8843-91 Completed 10/05/2018 Visit Diagnosis Plan: Allergic rhinitis due to pollen Discussion: Continue zyrtec Finish prednisone ICD-9 : 477.9 ICD-10 : J30.1 09/28/2018 Visit Diagnosis Plan: Hematuria, unspecified Discussio n: Recheck UA with microscopy in 1 week then fwup ICD-9 : 599.70 ICD-10 : R31.9 09/28/2018 Appointment: Cony Poole WPtel: [phone] US FOLLOW UP 09/28/2018 Visit Diagnosis [...] : K59.01 09/26/2018 Appointment: Cony Poole WPtel: [facility]3 [phone] US FOLLOW UP 09/26/2018 Visit Diagnosis Plan: [...] ICD-10 : J20.9 09/23/2018 Appointment: Merry Diaz [facility] [address] FOLLOW UP 09/23/2018 Patient Education: cefdinir- [employer] Coupon [id number] https://www.[employer]/samplemd/resources/getResource/61/0qv8l9tz-[email or web address]-j5 Completed 09/23/2018 Visit Diagnosis Plan: Acute bronchitis, unspecified Di scussion: Rocephin today Go for CXR Flu negative Recheck tomorrow ICD-9 : 466.0 ICD-10 : J20.9 09/22/2018 Appointment: Cony Poole WPtel: [address] [place], [place] [phone] FOLLOW UP 09/22/2018 Visit Diagnosis Plan: Tachycardia, [...] : R30.0 09/20/2018 Appointment: Merry Diaz [facility] [employer] [address] ACUTE ILLNESS 09/20/2018 Visit Diagnosis Plan: Other fatigue Discussion: Hold s otalol Add B12 500mcg daily as B12 in low normal range Fwup 1 week ICD-9 : 780.79 ICD-10 : R53.83 09/15/2018 Visit Diagnosis Plan: Hypothyroidism, unspecified Disc ussion: Decrease Synthroid to 50mcg daily ICD-9 : 244.9 ICD-10 : E03.9 09/15/2018 Appointment: Cony Poole WPtel: [address] [place], [place] [phone] FOLLOW UP 09/15/2018 Appointment: Cony Poole WPtel: [address] [place] [phone] UA 09/14/2018 Visit Diagnosis Plan: Chronic fatigue, unspecified Dis cussion: I think her sotalol may be a big factor so will start with updated lab and if it is normal then will hold sotalol and fwup in 1 week ICD-9 : 780.79 ICD-10 : R53.82 09/08/2018 Appointment: Cony Poole WPtel: [facility] ACUTE ILLNESS 09/08/2018 Visit Diagnosis Plan: Dysuria Discussion: UA- positive for leuks, hematuria, nitrates. Will start patient on Macrobid and culture urine. Will call patient with results of culture. RTC with worsening symptoms, including fever, increased pain, abdominal pain. Patient states understanding. ICD-9 : 788.1 ICD-10 : R30.0 09/05/2018 Appointment: Merry Diaz [address] ACUTE ILLNESS 09/05/2018 Care Plan: RML ASSAY THYROID STIM HORMONE Pending 05/26/2018 Care Plan: RML ASSAY OF FREE THYROXINE Pe nding 05/26/2018 Appointment: Cony Poole WPtel: [address] [place], [place] [phone] UA 04/20/2018 Appointment: Cony Poole WPtel: [address] [place], [place] [address] BP CHECK 04/13/2018 Visit Diagnosis Plan: Impacted cerumen, right ear Disc ussion: cerumen removed with irrigation and lavage. patient tolerated well and had immediate relief. ICD-9 : 380.4 ICD-10 : H61.21 03/18/2018 Appointment: Apoorva Rueda [address] ACUTE ILLNESS 03/18/2018 Patient Education: Patient [...] Appointment: Cony Poole WPtel: [phone] [id number] FOLLOW UP 03/03/2018 Patient Education: Patient Medication Summary Completed 03/03/2018 Visit Diagnosis Plan: Atopic dermatitis, unspecified D iscussion: instructed to apply triamcinolone bid for 2 weeks, until follow up. follow with your normal lotion and cover with compression hose. if worsening or no improvement, call clinic. ICD-9 : 691.8 ICD-10 : L20.9 02/16/2018 Appointment: Apoorva Rueda [address] [place] [address] ACUTE ILLNESS 02/16/2018 Patient Education: Patient Medication [...] ICD-10 : L89.611 01/26/2018 Appointment: Apoorva Rueda [address] [place] [address] ACUTE ILLNESS 01/26/2018 Patient Education: Patient Medication [...] : I10 11/30/2017 Appointment: Cony Poole WPtel: [phone] [phone] FOLLOW UP 11/30/2017 Patient Education: Patient Medication Summary Completed 11/30/2017 Visit Diagnosis Plan: Other seborrheic keratosis Discu ssion: Monitor ICD-9 : 702.19 ICD-10 : L82.1 11/04/2017 Appointment: Cony Poole WPtel: [facility]9 [phone] US Consult 11/04/2017 Patient Education: Patient Medication Summary Completed 11/04/2017 Visit Diagnosis Plan: Achilles tendinitis, right leg D iscussion: educated patient on RICE and the importance of performing all these activities. 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 to assist [...] ICD-10 : M76.61 10/20/2017 Appointment: Apoorva Rueda [address] [place] [address] ACUTE ILLNESS 10/20/2017 Patient Education: Patient Medication Summary Completed 10/20/2017 Visit Diagnosis Plan: Essential (primary) hypertension Discussion: Stable ICD-9 : 401.9 ICD-10 : I10 08/30/2017 Visit Diagnosis Plan: Weakness Discussion: Check Cervi gerri spine x-ray due to primarily being in upper arms ICD-9 : 780.79 ICD-10 : R53.1 08/30/2017 Appointment: Cony Poole WPtel: [facility]7 [phone] FOLLOW UP 08/30/2017 Patient Education: Patient Medication Summary Completed 08/30/2017 Care Plan: X-RAY EXAM NECK SPINE 4/5VWS LOINC : 78673-1 Pending 08/30/2017 Patient Education: Patient Medication Summary Completed 08/13/2017 Care Plan: DXA BONE DENSITY AXIAL LOINC : 79176-6 Pending 08/13/2017 Patient Education: Patient Medication Summary Completed 07/01/2017 Care Plan: RML COMPREHEN METABOLIC PANEL LOINC : 37419-1 Pending 07/01/2017 Care Plan: RML ASSAY THYROID STIM HORMONE Pending 07/01/2017 Care Plan: RML ASSAY OF FREE THYROXINE Pe nding 07/01/2017 Care Plan: RML LIPID PANEL LOINC : 06957 -1 Pending 07/01/2017 Care Plan: CBC Pending [...] E03.9 05/25/2017 [facility]ment[phone] [phone] [facility] 05/25/2017 Patient Education: Patient [...] I10 03/22/2017 Appointment: [facility]Ptel[facility] [phone] [phone] [facility] FOLLOW UP 03/22/2017 Patient Education: Patient Medication Summary Completed 03/22/2017 Patient Education: Patient Medication Summary Completed 03/17/2017 Care Plan: RML ASSAY THYROID STIM HORMONE Pending 03/17/2017 Care Plan: RML ASSAY OF FREE THYROXINE Pe nding 03/17/2017 Care Plan: METABOLIC PANEL TOTAL CA LOIN C : 38339-9 Pending 03/17/2017 Appointment: Cony Poole WPtel: [address] [place], [place] [phone] US INJECTION 03/08/2017 Patient Education: Patient Medication Summary Completed 03/08/2017 Visit Diagnosis Plan: Hypothyroidism, unspecified Disc ussion: Increase synthroid to 75mcg daily and recheck 2mos Follow Up: 2 months ICD-9 : 244.9 ICD-10 : E03.9 01/18/2017 Visit Diagnosis Plan: Essential (primary) hypertension Discussion: Stable with current meds ICD-9 : 401.9 ICD-10 : I10 01/18/2017 Appointment: Cony Poole WPtel: [address] [place], [place] [phone] US 01/14lm~sl FOLLOW UP 01/18/2017 Patient Education: Patient Medication Summary Completed 01/18/2017 Appointment: Cony Poole WPtel: [address] [place], [place] [phone] BP CHECK 01/11/2017 Patient Education: Patient Medication Summary Completed 01/11/2017 Patient Education: Patient Medication Summary Completed 01/11/2017 Care Plan: RML ASSAY THYROID STIM HORMONE Pending 01/11/2017 Care Plan: RML ASSAY OF FREE THYROXINE Pe nding 01/11/2017 Appointment: Cony Poole WPtel: [address] [place], [place] [phone] US BP CHECK 01/04/2017 Patient Education: Patient Medication Summary Completed 01/04/2017 Appointment: Cony Poole WPtel: [address] [place], [place] [phone] US BP CHECK 12/28/2016 Patient Education: Patient Medication Summary Completed 12/28/2016 Appointment: Cony Poole WPtel: [address] [place], [place] [phone] BP CHECK 12/24/2016 Patient Education: Patient Medication Summary Completed 12/24/2016 Visit Diagnosis Plan: Hypotension, unspecified Discuss ion: Tashi fuentes Decrease HCTZ to 12.5mg q AM BP check in 1 week ICD-9 : 458.9 ICD-10 : I95.9 12/16/2016 Visit Diagnosis Plan: Localized edema Discussion: Decr ease HCTZ to 12.5mg q AM ICD-9 : 782.3 ICD-10 : R60.0 12/16/2016 Appointment: Cony Poole WPtel: [facility]9 [phone] ACUTE ILLNESS 12/16/2016 Patient Education: Patient [...] : E03.9 11/18/2016 Appointment: Cony Poole WPtel: [facility]9 [phone] 11/17 lm ~sl 11/18 confirmed~sl FOLLOW [...] : E03.9 11/04/2016 Appointment: Cony Poole WPtel: [address] [place], [place] [phone] 11/03 confirmed `sl FOLLOW UP 11/04/2016 Patient Education: Patient Medication Summary Completed 11/04/2016 Visit Diagnosis Plan: Hypotension due to drugs Discuss ion: Hydrate Hold Losartan tonight then decrease to 50mg q HS BP check in 1 week ICD-9 : 458.8 ICD-10 : I95.2 10/27/2016 Appointment: Cony Poole WPtel: [address] [place], [place] [phone] 10/26 Confirmed~sl FOLLOW UP 10/27/2016 Patient Education: Patient Medication Summary Completed 10/27/2016 Appointment: Cony Poole WPtel: [address] [place], [place] [phone] UA 10/26/2016 Patient Education: Patient Medication Summary Completed 10/26/2016 Visit Diagnosis Plan: Cellulitis of left lower limb Di scussion: Finish Clindamycin Follow Up: 2 weeks ICD-9 : 682.6 ICD-10 : L03.116 10/13/2016 Appointment: Cony Poole WPtel: [address] [place], [place] [phone] 10/12 lm-sp WORK IN 10/13/2016 Patient Education: Patient Medication Summary Completed 10/13/2016 Visit Diagnosis Plan: Cellulitis of left lower limb Di scussion: Change keflex to clindamycin Add prednisone Continue compression socks and elevate ICD-9 : 682.6 ICD-10 : L03.116 10/08/2016 Appointment: Cony Poole WPtel: [facility]9 [phone] 10/07 lm~sl 10/08 confirmed`sl FOLLOW UP [...] L03.116 10/05/2016 Appointment: Con[facility] Poole [facility]Ptel[phone] [phone] 10/01 confirmed `sl FOLLOW UP 10/05/2016 [...] METABOLIC PANEL TOTAL CA LOIN C : 05713-9 Pending 09/30/2016 Visit Diagnosis Plan: Other fatigue [...] I10 08/25/2016 Appointment: Con[facility] Poole [facility]Ptel[phone] [phone] 08/24 confirmed~sl FOLLOW UP 08/25/2016 Patient Education: Patient Medication Summary Completed 08/25/2016 Appointment: Cony Poole WPtel[facility] [phone] [phone] 07/30 rescheduled~sl RESCHEDULED 08/19/2016 Patient Education: Patient Medication Summary Completed 08/19/2016 Care Plan: RML COMPREHEN METABOLIC PANEL LOINC : 76278-7 Pending 08/19/2016 Care Plan: CBC Pending 08/19/2016 [...] : I10 07/28/2016 Appointment: Cony Poole WPtel: [address] [place], [place] [phone] [place] [address] 07/27 confirmed~sl ACUTE ILLNESS 07/28/2016 Patient Education: Patient Medication Summary Completed 07/28/2016 Patient Education: Patient Medication Summary Completed 07/06/2016 Care Plan: RML ASSAY THYROID STIM HORMONE Pending 07/06/2016 Care Plan: RML ASSAY OF FREE THYROXINE Pe nding 07/06/2016 Appointment: Cony Poole WPtel: [address] [place], [place] [phone] BP CHECK 06/25/2016 Patient Education: Patient Medication Summary Completed 06/25/2016 Patient Education: Patient Medication Summary Completed 06/25/2016 Care Plan: CBC Pending 06/25/2016 Care Plan: URINALYSIS [place] : 82551-1 Pending 06/25/2016 Visit Diagnosis Plan: Essential (primary) hypertension Discussion: Discussed with Dr Poole Increase HCTZ as above Check CMP in 1-2 weeks Patient to call Dr Noble for follow up with him, 1-2 weeks and management of her HTN ICD-9 : 401.9 ICD-10 : I10 06/23/2016 Appointment: Merle Hernandez [address] [place] [address] ACUTE ILLNESS 06/23/2016 Patient Education: Patient Medication [...] plan and agrees 06/03/2016 Appointment: Merle Hernandez [address] [place] [address] ACUTE ILLNESS 06/03/2016 Patient Education: Patient Medication Summary Completed 06/03/2016 Visit Plan: Exam is fairly benign Flu ra n since her symptoms had such a sudden onset - results negative Likely viral URI Supportive care reviewed Monitor closely Follow up PRN 05/26/2016 Appointment: Merle Hernandez [address] [place], [place] [phone] ACUTE ILLNESS 05/26/2016 Patient Education: Patient Medication Summary Completed 05/26/2016 Visit Plan: Continue current meds and mo nitor BP Continue temazepam at current dose--discussed risks but patient feels much better since getting good rest Check CBC, CMP, TSH, Free T4 05/20/2016 Appointment: Cony Poole WPtel: [address] [place], [place] [phone] 05/19 confirmed~sl FOLLOW UP 05/20/2016 Patient Education: Patient Medication Summary Completed 05/20/2016 Appointment: Cony Poole WPtel: [phone] US CANCELED 04/07/2016 Visit Plan: Check right ankle x-ray Disc ussed may need veins in right ankle worked on if swelling/pain persist 03/19/2016 Appointment: Cony Pooletel: [address] [place], [place] [phone] ACUTE ILLNESS 03/19/2016 Patient Education: Patient Medication Summary Completed 03/19/2016 Visit Plan: Increase HCTZ to 12.5mg po e very day Recheck Chem [address] Noble next week to discuss antiarrhythmic meds Prevnar 13 today 01/13/2016 Appointment: Cony Pooletel: [address] [place], [place] [phone] 01/08 confirmed-sp FOLLOW UP 01/13/2016 Patient Education: Patient Medication Summary Completed 01/13/2016 Visit Plan: Continue current meds and mo nitor BP Check Chem 7 12/12/2015 Appointment: Cony Poole WPtel: [address] [place], [place] [phone] /6confirmed sl FOLLOW UP 12/12/2015 Patient Education: Patient Medication Summary Completed 12/12/2015 Appointment: Cony Poole WPtel: [address] [place], [place] [phone] RESCHEDULED 12/10/2015 Visit Plan: Add Restoril 15mg q HS--stuart ent used in hospital with no complications Add back low dose HCTZ at 12.5mg every other day Monitor BP Can hold on nebulizer treatments Check Chem 7 now and recheck 1week 12/05/2015 Appointment: Cony Poole WPtel: [address] [place], [place] [phone] 12/02 confirmed~sl ER Follow UP 12/05/2015 Patient Education: Patient Medication Summary Completed 12/05/2015 Appointment: Cony Poole WPtel: [address] [place], [place] [phone] WORK IN 11/28/2015 Visit Plan: Due to patient's symptoms an d high blood pressure I consulted . Outpatient orders written for 1L IV fluids with 1G Rocephin and Zofran for nausea. Patient sent to hospital and followup in am. 11/27/2015 Appointment: Cony Poole WPtel: [phone] [phone] UA 11/27/2015 Patient Education: Patient Medication Summary Completed 11/27/2015 Appointment: Cony Poole WPtel: [phone] [phone] LAB 11/25/2015 Patient Education: Patient Medication Summary Completed 11/25/2015 Care Plan: RML COMPREHEN METABOLIC PANEL LOINC : 57150-4 Pending 11/25/2015 Care Plan: RML ASSAY THYROID [...] potassium depletion Get with us rita on rn x ray she would like to see Keep BP log and follow up PRN 10/21/2015 Appointment: [facility] [facility] 10/21/2015 Patient Education: Patient Medication Summary Completed 10/21/2015 Visit Plan: Stop amlodopine Increase met oprolol to to 50mg q HS and 25mg in AM Switch cozaar to 100mg daily as the insurance does not want to pay for 50mg BID dosing Low Na diet and elevate legs See Cardiology 10/17/2015 Appointment: Cony Poole WPtel: [phone] [phone] 5/11confirm~sl FOLLOW UP 10/17/2015 Patient Education: Patient Medication Summary Completed 10/17/2015 Visit Plan: Pt to bring in home BP/HR lo g for review Orders given for CBC, CMP, TSH, MG and 48 holter for further evaluation 10/07/2015 Appointment: Merle Hernandez [address] [place] [address] ACUTE ILLNESS 10/07/2015 Patient Education: Patient Medication Summary Completed 10/07/2015 Visit Plan: Cold vs Allergies Continue z yrtec and nasacort Add steroid pack as above Add plain mucinex, nasal rinses, vicks, humidifier, etc Call if not improving or if worsening - will likely add zpak 09/03/2015 Appointment: Merle Hernandez [address] [place], [place] [phone] ACUTE ILLNESS 09/03/2015 Patient Education: Patient Medication Summary Completed 09/03/2015 Visit Plan: BP values reviewed Change me toprolol to 12.5mg po BID BP values in 1month 08/01/2015 Appointment: Cony Poole WPtel: [address] [place], [place] [phone] 07/31 confirmed-SP FOLLOW UP 08/01/2015 Patient Education: Patient Medication Summary Completed 08/01/2015 Visit Plan: Had lab in the fall--shanelle jennifer ain copy and plan on repeat lab 6mos from last lab then fwup after that Continue current meds Mammogram up-to-date 06/27/2015 Appointment: Cony Poole WPtel: [address] [place], [place] [phone] 06/26/15 appt confirmed cn NEW PATIENT 06/27 Patient Education: Patient Medication Summary Completed 06/27/2015 Referral: Donald Noble WPtel: [facility] [address] [id number] US Referral Initiated Instructions Comment Date . [...] . Add Restoril 15mg q HS--[facility] Add back low [...] potassium depletion Get with us rita on rn x ray she would like to see Keep BP [...]
--- OUTSIDE RECORDS SUMMARY | 2022-11-09 15:29 | XMS REPORT | CCD ---
Author Author Tanna Poole D.O. Organization [facility] Address [address] [place] [phone] Phone Care Team Providers Care Second Hand Paper Machine Name Role Phone Cony Poole D.O. PP Unavailable CCM Unavailable Summary Purpose Interface Exchange Insurance Providers Payer name Policy type / Coverage type Covered constitution party ID Effective Begin Date Effective End Date WPS MEDICARE PART B [place] Part B [id number] 2017 Unknown [facility] Medicare Part B [id number] Un known Family history Sister Diagnosis Age [...] Unknown Retired 06/27/[address]: 2014865 Former smoker quit 1986 06/27/[address]: 848601238 Never drinks alcohol 2015 Has the patient [...] Effexor XR 37.5 mg capsule,extended release RxNorm: 568344 Take 1 Capsule(s) Oral QPM for mood 10/01/2022 12/29/2022 Active losartan 50 mg tablet RxNorm: 904217 Take 1 Tablet(s) Oral two times a day 09/16/2022 03/14/2023 Active Synthroid 75 mcg tablet RxNorm: 178616 Take 1 Tablet(s) Oral MWF 11/25/2022 Active Synthroid 88 mcg tablet RxNorm: 047370 Take 1 Tablet(s) Oral QD Tu, Th, Sa, [place] 08/28/2022 11/25/2022 Active Synthroid 88 mcg tablet RxNorm: 594950 Take 1 Tablet(s) Oral QD Tu, Th, Sa, [place] 08/25/2022 08/25/2022 Inactive Synthroid 75 mcg tablet RxNorm: 430681 Take 1 Tablet(s) Oral MWF 08/25/2022 Inactive Synthroid 75 mcg tablet RxNorm: 852676 Take 1 Tablet(s) Oral MWF 08/24/2022 Inactive hydralazine 10 mg tablet RxNorm: 325647 Take 1 Tablet(s) Oral t wo times a day 07/28/2022 10/25/2022 Active metoprolol succinate ER 100 mg tablet,extended release 24 hr RxNorm: 265661 Take 1 Tablet(s) Oral QPM 07/28/2022 07/28/2022 Inactive Synthroid 88 mcg tablet RxNorm: 885526 Take 1 Tablet(s) Oral QD Wednesday-Wednesday07/28/2022 08/24/2022 Inactive Synthroid 75 mcg tablet RxNorm: 150698 Take 1 Tablet(s) Oral QA M Sat/Sun 07/28/2022 08/24/2022 Inactive losartan 50 mg tablet RxNorm: 816552 1 Tablet(s) Oral two times a day 07/28/2022 07/28/2022 Inactive Zithromax Z-Topher 250 mg tablet RxNorm: 898238 Take 2 Tab let(s) Oral QD x1 dose then 1 daily 07/14/2022 07/18/2022 Inactive losartan 50 mg tablet RxNorm: 291655 TAKE ONE TABLET BY MOUTH DAILY 07/14/2022 07/27/2022 Inactive Synthroid 88 mcg tablet RxNorm: 280421 Take 1 Tablet(s) Oral QD Wednesday-Wednesday06/23/2022 07/27/2022 Inactive Synthroid 75 mcg tablet RxNorm: 949738 Take 1 Tablet(s) Oral QA M Sat/Sun 06/23/2022 07/27/2022 Inactive Xarelto 15 mg tablet RxNorm: 2645848 Take 1 Tablet(s) Oral QD 06/0906/09/2022 Inactive atorvastatin 20 mg tablet RxNorm: 771836 Take 1 Tablet(s) Oral QD 0 06/09/2022 06/09/2022 Inactive metoprolol succinate ER 100 mg tablet,extended release 24 hr RxNorm: 510376 Take 1 Tablet(s) Oral QD 06/09/2022 06/09/2022 Inactive budesonide 0.5 mg/2 mL suspension for nebulization RxNorm: 3 67883 USE 1 VIAL IN NEBULIZER TWICE DAILY (RINSE MOUTH AFTER EACH TREATMENT) 05/29/2022 No Stop Date Active Perforomist 20 mcg/2 mL solution for nebulization RxNorm: 12 27926 USE 1 VIAL IN NEBULIZER TWICE DAILY (MORNING AND EVENING) 05/29/2022 No Stop Date Acti ve Perforomist 20 mcg/2 mL solution for nebulization RxNorm: 12 59483 USE 1 VIAL IN NEBULIZER TWICE DAILY - morning and evening 05/26/2022 05/26/2022 Inac tive Perforomist 20 mcg/2 mL solution for nebulization RxNorm: 12 44458 USE 1 VIAL IN NEBULIZER TWICE DAILY - morning and evening 05/26/2022 05/26/2022 Inac tive budesonide 0.5 mg/2 mL suspension for nebulization RxNorm: 3 10454 USE 1 VIAL IN NEBULIZER TWICE DAILY - rinse mouth after treatment 05/26/2022 05/26/20 Inactive albuterol sulfate 2.5 mg/3 mL (0.083 %) solution for n ebulization RxNorm: 888539 USE 1 VIAL IN NEBULIZER DAILY - for rescue 05/26/2022 05/26/2022 Inactive budesonide 0.5 mg/2 mL suspension for nebulization RxNorm: 3 60394 USE 1 VIAL IN NEBULIZER TWICE DAILY - rinse mouth after treatment 05/26/2022 05/26/20 22 Inactive budesonide 0.5 mg/2 mL suspension for nebulization RxNorm: 3 60546 USE 1 VIAL IN NEBULIZER TWICE DAILY - rinse mouth after treatment 05/26/2022 05/26/20 22 Inactive losartan 50 mg tablet RxNorm: 057259 Take 1 Tablet(s) Oral two times a day 05/25/2022 05/25/2022 Inactive Synthroid 88 mcg tablet RxNorm: 418334 Take 1 Tablet(s) Oral QD 03/202206/22/2022 Inactive Astepro Allergy 205.5 mcg (0.15 %) nasal spray RxNorm: 36278 84 Take 1 [place] Nasal two times a day in each nostril 03/19/2022 No Stop Date Active Perforomist 20 mcg/2 mL solution for nebulization RxNorm: 12 77621 USE 1 VIAL IN NEBULIZER TWICE DAILY - morning and evening 02/17/2022 02/17/2022 Inac tive Xarelto 15 mg tablet RxNorm: 0380688 Take 1 Tablet(s) Oral QD 02/1706/09/2022 Inactive budesonide 0.5 mg/2 mL suspension for nebulization RxNorm: 3 32128 USE 1 VIAL IN NEBULIZER TWICE DAILY - rinse mouth after treatment 02/05/2022 02/06/20 Inactive Perforomist 20 mcg/2 mL solution for nebulization RxNorm: 12 63216 USE 1 VIAL IN NEBULIZER TWICE DAILY - morning and evening 02/05/2022 02/05/2022 Inac tive albuterol sulfate 2.5 mg/3 mL (0.083 %) solution for n ebulization RxNorm: 277108 USE 1 VIAL IN NEBULIZER DAILY - for rescue 02/05/2022 02/05/2022 Inactive ipratropium bromide 0.02 % solution for inhalation RxNorm: 8 87573 USE 1 VIAL IN NEBULIZER EVERY 4 HOURS - and as needed 02/05/2022 02/16/2022 Inactive albuterol sulfate HFA 90 mcg/actuation aerosol inhaler RxNor m: 3635180 Take 2 Puff(s) Inhalation Q4H as needed as needed 01/27/2022 No Stop Date Activ e Synthroid 88 mcg tablet RxNorm: 351514 Take 1 Tablet(s) Oral QD 01/26/2022 Inactive BRAND NAME ONLY losartan 50 mg tablet RxNorm: 787922 TAKE ONE TABLET BY MOUTH DAILY , REPLACES 25MG DOSE 01/15/2022 07/13/2022 Inactive Symbicort 160 mcg-4.5 mcg/actuation HFA aerosol inhaler RxNo rm: 4998043 2 Puff(s) Inhalation two times a day 10/30/2021 11/28/2021 Inactive Symbicort 160 mcg-4.5 mcg/actuation HFA aerosol inhaler RxNo rm: 2873715 2 Puff(s) Inhalation two times a day 10/30/2021 10/30/2021 Inactive Synthroid 88 mcg tablet RxNorm: 041035 Take 1 Tablet(s) Oral QD 10/29/2021 Inactive Breo Ellipta 200 mcg-25 mcg/dose powder for inhalation RxNor m: 0698698 Inhale 1 Puff(s) Inhalation QD 10/29/2021 10/29/2021 Inactive Breo Ellipta 200 mcg-25 mcg/dose powder for inhalation RxNor m: 4800215 Inhale 1 Puff(s) Inhalation QD 10/29/2021 10/29/2021 Inactive replaces a dvair Flonase Allergy Relief 50 mcg/actuation nasal spray,suspensi on RxNorm: 3592013 2 [place] Nasal every night at bedtime 10/28/2021 10/28/2021 Inactive Synthroid 88 mcg tablet RxNorm: 201477 Take 1 Tablet(s) Oral QD 10/28/2021 Inactive BRAND NAME ONLY fluticasone 113 mcg-salmeterol 14 mcg/actuation breath activated powdr RxNorm: 6982358 Inhale 1 Puff(s) Inhalation QAM 10/28/2021 10/28/2021 Inactive losartan 50 mg tablet RxNorm: 136042 1 Tablet(s) Oral QD replac es 25mg dose 10/20/2021 10/20/2021 Inactive metoprolol succinate ER 100 mg tablet,extended release 24 hr RxNorm: 169396 1 Tablet(s) Oral QD 09/23/2021 06/09/2022 Inactive potassium chloride ER 8 mEq capsule,extended release RxNorm: 064721 Take 1 Capsule(s) Oral QOD with lasix 09/15/2021 03/18/2022 Inactive Synthroid 88 mcg tablet RxNorm: 117901 Take 1 Tablet(s) Oral QD 12/202110/27/2021 Inactive BRAND NAME ONLY potassium chloride ER 8 mEq capsule,extended release RxNorm: 356416 1 Capsule(s) Oral QOD with lasix 09/11/2021 09/11/2021 Inactive metoprolol succinate ER 100 mg tablet,extended release 24 hr RxNorm: 730302 Take 1/2 Tablet(s) Oral QD 08/21/2021 09/22/2021 Inactive Synthroid 88 mcg tablet RxNorm: 005918 Take 1 Tablet(s) Oral QD 07/23/2021 Inactive BRAND NAME ONLY clindamycin HCl 300 mg capsule RxNorm: 727694 Take 1 Ca psule(s) Oral three times a day 07/03/2021 07/09/2021 Inactive clindamycin HCl 300 mg capsule RxNorm: 261173 Take 1 Ca psule(s) Oral three times a day 07/03/2021 07/03/2021 Inactive Synthroid 88 mcg tablet RxNorm: 892875 Take 1 Tablet(s) Oral QD 07/03/2021 Inactive BRAND NAME ONLY0 potassium chloride ER 8 mEq capsule,extended release RxNorm: 782814 1 Capsule(s) Oral QOD with lasix 06/26/2021 09/11/2021 Inactive potassium chloride ER 8 mEq tablet,extended release RxNorm: 529605 Take 2 Tablet(s) Oral two times a day 06/23/2021 06/25/2021 Inactive atorvastatin 20 mg tablet RxNorm: 967336 Take 1 Tablet(s) Oral QD 0 06/19/2021 06/09/2022 Inactive diltiazem CD 300 mg capsule,extended release 24 hr RxNorm: 8 80994 Take 1 Capsule(s) Oral QAM 06/19/2021 08/20/2021 Inactive potassium chloride ER 8 mEq tablet,extended release RxNorm: 460203 Take 2 Tablet(s) Oral two times a day 06/19/2021 06/23/2021 Inactive fluticasone 113 mcg-salmeterol 14 mcg/actuation breath activated powdr RxNorm: 4032387 Inhale 1 Puff(s) Inhalation QAM 06/19/2021 10/27/2021 Inactive furosemide 40 mg tablet RxNorm: 829725 Take 1 Tablet(s) Oral QAM 03/18/2022 Inactive alprazolam 0.25 mg tablet RxNorm: 795711 Take 1 Tablet(s) Oral Q8H as needed 06/19/2021 07/29/2021 Inactive gabapentin 100 mg capsule RxNorm: 597871 Take 2 Capsule (s) Oral every night at bedtime 06/19/2021 07/29/2021 Inactive losartan 25 mg tablet RxNorm: 159975 Take 1 Tablet(s) Oral QD 06/1910/20/2021 Inactive tramadol 50 mg tablet RxNorm: 883097 Take 1 Tablet(s) O ral three times a day as needed 06/19/2021 10/27/2021 Inactive Tylenol Arthritis Pain 650 mg tablet,extended release RxNorm : 1659507 Take 1 Tablet(s) Oral four times a day 05/05/2021 03/18/2022 Inactive Synthroid 88 mcg tablet RxNorm: 025714 Take 1 Tablet(s) Oral QD 04/30/2021 Inactive BRAND NAME ONLY0 Synthroid 88 mcg tablet RxNorm: 052013 1 Tablet(s) Oral QD 04/29/20 21 04/29/2021 Inactive Synthroid 88 mcg tablet RxNorm: 731338 1 Tablet(s) Oral QD 04/29/20 21 04/29/2021 Inactive magnesium oxide 400 mg (241.3 mg magnesium) tablet RxNorm: 1 13683 1 Tablet(s) Oral every night at bedtime 04/03/2021 No Stop Date Active Vitamin B12 1000mcg Tablet RxNorm: Take 1/2 Tablet(s) Oral QD 04/03/2021 No Stop Date Active aspirin 81 mg capsule RxNorm: 280185 1 Capsule(s) Oral QD No Stop Date Active doxazosin 1 mg tablet RxNorm: 796221 1 Tablet(s) Oral QPM 03/19/2021 04/02/2021 Inactive Cartia XT 240 mg capsule,extended release RxNorm: 054507 Take 1 Capsule(s) Oral QD 02/06/2021 06/18/2021 Inactive fluticasone propionate 50 mcg/actuation nasal spray,suspensi on RxNorm: 5092828 SHAKE LIQUID AND USE 2 SPRAYS IN EACH NOSTRIL EVERY NIGHT AT BEDTIME 12/19/2020 01/17/2021 Inactive diltiazem 120 mg tablet RxNorm: 825271 1 Tablet(s) Oral QD 12/12/1902/05/2021 Inactive Flonase Allergy Relief 50 mcg/actuation nasal spray,suspensi on RxNorm: 2094006 2 [place] Nasal every night at bedtime 11/21/2020 11/21/2020 Inactive diltiazem 120 mg tablet RxNorm: 028429 Take 1 Tablet(s) Oral tw o times a day 11/11/2020 12/10/2020 Inactive oxybutynin chloride 5 mg tablet RxNorm: 689811 Take 1 T ablet(s) Oral every night at bedtime for overactive bladder 11/11/2020 11/11/2020 Inactive oxybutynin chloride 5 mg tablet RxNorm: 994108 Take 1 T ablet(s) Oral every night at bedtime for overactive bladder 11/11/2020 11/11/2020 Inactive oxybutynin chloride 5 mg tablet RxNorm: 340217 TAKE 1 T ABLET BY MOUTH EVERY NIGHT AT BEDTIME FOR OVERACTIVE BLADDER 11/11/2020 02/05/2021 Inactive Patient requests 90 days supply MagOx 400 mg (241.3 mg magnesium) tablet RxNorm: 102186 TAKE 1 TABLET BY MOUTH EVERY OTHER DAY 10/28/2020 02/05/2021 Inactive Synthroid 75 mcg tablet RxNorm: 580103 TAKE 1 TABLET BY MOUTH EVERY DAY DIRECTED 09/06/2020 04/29/2021 Inactive diltiazem CD 120 mg capsule,extended release 24 hr RxNorm: 8 96166 1 Tablet(s) Oral QD 09/05/2020 11/10/2020 Inactive Synthroid 75 mcg tablet RxNorm: 589235 TAKE 1 TABLET BY MOUTH EVERY DAY DIRECTED 09/03/2020 09/05/2020 Inactive Synthroid 75 mcg tablet RxNorm: 641167 TAKE 1 TABLET BY MOUTH EVERY DAY DIRECTED 09/03/2020 09/02/2020 Inactive MagOx 400 mg (241.3 mg magnesium) tablet RxNorm: 477477 1 Table t(s) Oral QOD 07/30/2020 11/10/2020 Inactive MagOx 400 mg (241.3 mg magnesium) tablet RxNorm: 166604 1 Table t(s) Oral QOD 07/29/2020 07/29/2020 Inactive diltiazem CD 120 mg capsule,extended release 24 hr RxNorm: 8 76603 1 Tablet(s) Oral two times a day 07/29/2020 09/04/2020 Inactive diltiazem CD 120 mg capsule,extended release 24 hr RxNorm: 8 47474 1 Tablet(s) Oral two times a day 07/04/2020 07/03/2020 Inactive diltiazem CD 120 mg capsule,extended release 24 hr RxNorm: 8 97340 1 Tablet(s) Oral two times a day 07/04/2020 07/28/2020 Inactive Eliquis 5 mg tablet RxNorm: 8081077 TAKE 1 TABLET BY MOUTH TWICE DAILY 06/10/2020 02/16/2022 Inactive diltiazem CD 120 mg capsule,extended release 24 hr RxNorm: 8 72345 TAKE 1 CAPSULE BY MOUTH DAILY 06/10/2020 06/09/2020 Inactive Eliquis 5 mg tablet RxNorm: 0347571 TAKE 1 TABLET BY MOUTH TWICE DAILY 06/10/2020 06/09/2020 Inactive diltiazem CD 120 mg capsule,extended release 24 hr RxNorm: 8 19756 TAKE 1 CAPSULE BY MOUTH DAILY 06/10/2020 07/03/2020 Inactive Synthroid 75 mcg tablet RxNorm: 081590 TAKE 1 TABLET BY MOUTH EVERY DAY DIRECTED 06/10/2020 09/02/2020 Inactive Flonase Allergy Relief 50 mcg/actuation nasal spray,suspensi on RxNorm: 4356752 2 [place] Nasal every night at bedtime 04/26/2020 04/26/2020 Inactive Vitamin D3 25 mcg (1,000 unit) capsule RxNorm: 683302 3 Capsule (s) Oral QD 04/22/2020 No Stop Date Active MagOx 400 mg (241.3 mg magnesium) tablet RxNorm: 425359 1 Table t(s) Oral QOD 04/22/2020 04/21/2020 Inactive MagOx 400 mg (241.3 mg magnesium) tablet RxNorm: 389390 1 Table t(s) Oral QOD 04/22/2020 07/21/2020 Inactive prednisone 10 mg tablet RxNorm: 471978 1 Tablet(s) Oral two norma es a day 03/22/2020 03/27/2020 Inactive Eliquis 5 mg tablet RxNorm: 4083335 TAKE 1 TABLET BY MOUTH TWICE DAILY 03/15/2020 06/09/2020 Inactive Synthroid 75 mcg tablet RxNorm: 182278 TAKE 1 TABLET BY MOUTH EVERY DAY DIRECTED 03/15/2020 06/09/2020 Inactive furosemide 20 mg tablet RxNorm: 839108 1 Tablet(s) Oral QAM as needed 03/14/2020 06/20/2020 Inactive diltiazem CD 120 mg capsule,extended release 24 hr RxNorm: 8 93221 TAKE 1 CAPSULE BY MOUTH DAILY 03/14/2020 06/09/2020 Inactive amiodarone 200 mg tablet RxNorm: 206434 TAKE 1 TABLET BY MOUTH SIMON Y 03/14/2020 06/23/2020 Inactive potassium chloride ER 20 mEq tablet,extended release RxNorm: 873204 1 Tablet(s) Oral two times a day as needed 02/29/2020 06/20/2020 Inactive furosemide 20 mg tablet RxNorm: 839863 1 Tablet(s) Oral QAM as needed 02/29/2020 03/13/2020 Inactive Macrobid 100 mg capsule RxNorm: 014579 1 Capsule(s) Oral two ti mes a day 02/15/2020 02/18/2020 Inactive Macrobid 100 mg capsule RxNorm: 567222 1 Capsule(s) Oral two ti mes a day 02/15/2020 02/14/2020 Inactive magnesium oxide 400 mg (241.3 mg magnesium) tablet RxNorm: 1 42102 TAKE 1/2 TABLET BY MOUTH EVERY DAY 01/30/2020 02/21/2020 Inactive Flonase Allergy Relief 50 mcg/actuation nasal spray,suspensi on RxNorm: 7702110 2 [place] Nasal every night at bedtime 01/22/2020 04/25/2020 Inactive furosemide 20 mg tablet RxNorm: 049479 1 Tablet(s) Oral QOD 020 02/12/2020 Inactive potassium chloride ER 20 mEq tablet,extended release RxNorm: 666049 1 Tablet(s) Oral two times a day 01/04/2020 02/12/2020 Inactive potassium chloride ER 20 mEq tablet,extended release RxNorm: 831216 TAKE 1 TABLET BY MOUTH TWICE DAILY 01/03/2020 01/03/2020 Inactive diltiazem CD 120 mg capsule,extended release 24 hr RxNorm: 8 15086 1 Capsule(s) Oral QD 12/26/2019 03/13/2020 Inactive Colace 100 mg capsule RxNorm: 0408440 2 Capsule(s) Oral QD 12/26/19 20 03/18/2022 Inactive Flonase Allergy Relief 50 mcg/actuation nasal spray,suspensi on RxNorm: 8360720 2 SPRAY NASAL QHS 12/26/2019 12/28/2019 Inactive amiodarone 200 mg tablet RxNorm: 794068 1 Tablet(s) Oral QD 020 01/21/2020 Inactive Eliquis 5 mg tablet RxNorm: 6702673 1 Tablet(s) Oral two times a da y 12/26/2019 03/14/2020 Inactive potassium chloride ER 20 mEq tablet,extended release RxNorm: 381852 2 Tablet(s) Oral QD with furosemide 12/20/2019 01/21/2020 Inactive furosemide 20 mg tablet RxNorm: 260426 1 Tablet(s) Oral QAM 020 01/18/2020 Inactive Synthroid 75 mcg tablet RxNorm: 989171 1 Tablet(s) Oral QD 12/18/19 20 02/16/2020 Inactive potassium chloride ER 20 mEq tablet,extended release RxNorm: 747001 2 Tablet(s) Oral QOD with furosemide 11/29/2019 12/19/2019 Inactive furosemide 40 mg tablet RxNorm: 172445 1 Tablet(s) Oral QOD 020 12/19/2019 Inactive amlodipine 5 mg tablet RxNorm: 504867 1 Tablet(s) Oral every ni ght at [...] 11/22/2019 Inactive cefdinir 300 mg capsule RxNorm: 058106 1 Capsule(s) Oral two ti mes a day 11/09/2019 11/16/2019 Inactive temazepam 15 mg capsule RxNorm: 611891 TAKE 1 CAPSULE B Y MOUTH EVERY NIGHT AT BEDTIME 11/06/2019 12/18/2019 Inactive magnesium oxide 400 mg (241.3 mg magnesium) tablet RxNorm: 1 47893 TAKE 1/2 TABLET BY MOUTH EVERY DAY 11/03/2019 2020 Inactive Synthroid 75 mcg tablet RxNorm: 233728 TAKE 1 TABLET BY MOUTH E VERY DAY 10/16/2019 12/17/2019 Inactive potassium chloride ER 20 mEq tablet,extended release RxNorm: 011223 TAKE 1 TABLET BY MOUTH TWICE DAILY 10/02/2019 11/28/2019 Inactive baclofen 10 mg tablet RxNorm: 130941 1/2-1 Tablet(s) Or al QPM as needed for muscle spasm 09/21/2019 01/21/2020 Inactive hydrochlorothiazide 25 mg tablet RxNorm: 448579 TAKE 1 TABLET BY MOUTH EVERY MORNING 09/21/2019 11/26/2019 Inactive amlodipine 5 mg tablet RxNorm: 911353 TAKE 1 TABLET BY MOUTH TW ICE DAILY 09/06/2019 11/27/2019 Inactive magnesium oxide 400 mg (241.3 mg magnesium) tablet RxNorm: 1 86504 TAKE 1/2 TABLET BY MOUTH EVERY DAY 09/06/2019 11/02/2019 Inactive temazepam 15 mg capsule RxNorm: 108220 TAKE 1 CAPSULE B Y MOUTH EVERY DAY AT BEDTIME 09/04/2019 11/05/2019 Inactive baclofen 10 mg tablet RxNorm: 719233 1/2-1 Tablet(s) Or al QPM as needed for muscle spasm 08/25/2019 09/20/2019 Inactive Synthroid 75 mcg tablet RxNorm: 170856 TAKE 1 TABLET BY MOUTH E VERY DAY 08/17/2019 10/15/2019 Inactive Cytomel 5 mcg tablet RxNorm: 038564 TAKE 1 TABLET BY MOUTH EVERY DA Y 08/13/2019 01/21/2020 Inactive potassium chloride ER 20 mEq tablet,extended release RxNorm: 245457 TAKE 1 TABLET BY MOUTH TWICE DAILY 07/06/2019 10/01/2019 Inactive Synthroid 75 mcg tablet RxNorm: 073827 1 Tablet(s) Oral QD Recheck labs in 2 months 06/21/2019 08/16/2019 Inactive Recheck labs in 2 months Synthroid 75 mcg tablet RxNorm: 414558 1 Tablet(s) Oral QD Recheck labs in 2 months 06/21/2019 06/20/2019 Inactive Recheck labs in 2 months amlodipine 5 mg tablet RxNorm: 220776 TAKE 1 TABLET BY MOUTH TW ICE DAILY 06/11/2019 09/05/2019 Inactive Diflucan 100 mg tablet RxNorm: 581854 1 Tablet(s) Oral QD 05/29/2019 06/04/2019 Inactive Zithromax Z-Topher 250 mg tablet RxNorm: 392687 Tablet(s) Oral as directed 05/29/2019 05/28/2019 Inactive Zithromax Z-Topher 250 mg tablet RxNorm: 352602 Tablet(s) Oral as directed 05/29/2019 05/29/2019 Inactive Diflucan 100 mg tablet RxNorm: 676284 1 Tablet(s) Oral QD 05/29/2019 05/28/2019 Inactive cefdinir 300 mg capsule RxNorm: 460508 1 Capsule(s) Oral two ti mes a day 05/19/2019 05/22/2019 Inactive Synthroid 50 mcg tablet RxNorm: 120414 1 TABLET(S) PO QD 05/18/2019 0 06/20/2019 Inactive lab draw in 2 months to recheck thyroid temazepam 15 mg capsule RxNorm: 614553 TAKE 1 CAPSULE B Y MOUTH EVERY DAY AT BEDTIME 05/18/2019 07/16/2019 Inactive Cytomel 5 mcg tablet RxNorm: 070395 1 Tablet(s) Oral QD 05/18/2019 Inactive cefdinir 300 mg capsule RxNorm: 071321 1 Capsule(s) Oral two ti mes a day 05/18/2019 05/18/2019 Inactive magnesium oxide 400 mg (241.3 mg magnesium) tablet RxNorm: 1 66396 1/2 TABLET(S) PO QD 05/10/2019 05/10/2019 Inactive temazepam 15 mg capsule RxNorm: 404749 TAKE 1 CAPSULE B Y MOUTH EVERY DAY AT BEDTIME 05/09/2019 05/16/2019 Inactive magnesium oxide 400 mg (241.3 mg magnesium) tablet RxNorm: 1 82852 1/2 TABLET(S) PO QD 05/02/2019 05/09/2019 Inactive nystatin 100,000 unit/mL oral suspension RxNorm: 436267 5 Milliliter(s) Oral four times a day 04/24/2019 05/07/2019 Inactive cephalexin 500 mg capsule RxNorm: 591941 1 Capsule(s) Oral thre e times a day 04/21/2019 04/27/2019 Inactive cephalexin 500 mg capsule RxNorm: 814433 1 Capsule(s) Oral thre e times a day 04/21/2019 04/20/2019 Inactive potassium chloride ER 20 mEq tablet,extended release RxNorm: 064626 1 Tablet(s) Oral two times a day 04/10/2019 07/05/2019 Inactive Patient r equests 90 days supplyPatient requests 90 days supply nystatin 100,000 unit/mL oral suspension RxNorm: 970208 5 Milliliter(s) Oral four times a day 04/10/2019 04/23/2019 Inactive Diflucan 100 mg tablet RxNorm: 282752 1 Tablet(s) Oral QD 04/10/2019 04/17/2019 Inactive temazepam 15 mg capsule RxNorm: 348367 TAKE 1 CAPSULE B Y MOUTH EVERY DAY AT BEDTIME 04/04/2019 05/03/2019 Inactive Synthroid 50 mcg tablet RxNorm: 710176 1 TABLET(S) PO QD 04/04/2019 1 07/18/2018 Inactive lab draw in 2 months to recheck thyroid magnesium oxide 400 mg (241.3 mg magnesium) tablet RxNorm: 1 58120 1 Tablet(s) Oral QOD 04/04/2019 02/21/2020 Inactive hydrochlorothiazide 25 mg tablet RxNorm: 445921 1 Tablet(s) Oral QA M 03/28/2019 09/20/2019 Inactive amlodipine 5 mg tablet RxNorm: 141140 1 TABLET(S) PO BID 03/15/2019 0 06/12/2019 Inactive magnesium oxide 400 mg (241.3 mg magnesium) tablet RxNorm: 1 02474 1/2 TABLET(S) PO QD 03/06/2019 04/03/2019 Inactive Cytomel 5 mcg tablet RxNorm: 734969 1 Tablet(s) PO QD 02/20/201902/05 Inactive Cytomel 5 mcg tablet RxNorm: 285179 1 Tablet(s) PO QD 02/20/201905/07 Inactive amlodipine 5 mg tablet RxNorm: 721510 1 Tablet(s) PO BID 02/16/2019 0 02/15/2019 Inactive amlodipine 5 mg tablet RxNorm: 665034 1 Tablet(s) PO BID 02/16/2019 1 07/17/2018 Inactive amlodipine 5 mg tablet RxNorm: 062071 1 Tablet(s) PO BID 02/16/2019 0 02/16/2019 Inactive Synthroid 50 mcg tablet RxNorm: 439956 1 TABLET(S) PO QD 02/13/2019 1 Inactive Synthroid 50 mcg tablet RxNorm: 740608 1 TABLET(S) PO QD 01/16/2019 0 02/12/2019 Inactive magnesium oxide 400 mg (241.3 mg magnesium) tablet RxNorm: 1 84545 1/2 Tablet(s) PO QD 01/11/2019 03/05/2019 Inactive temazepam 15 mg capsule RxNorm: 363522 1 Capsule(s) PO QHS 01/04/20 19 04/03/2019 Inactive cefdinir 300 mg capsule RxNorm: 832785 1 Capsule(s) PO BID 12/22/19 19 12/20/2018 Inactive cefdinir 300 mg capsule RxNorm: 613735 1 Capsule(s) PO BID 12/22/19 19 12/24/2018 Inactive hydrochlorothiazide 25 mg tablet RxNorm: 328174 1 Tablet(s) PO QAM 12/19/2018 03/27/2019 Inactive magnesium oxide 400 mg (241.3 mg magnesium) tablet RxNorm: 1 71071 1/2 Tablet(s) PO QD 12/15/2018 01/11/2019 Inactive magnesium oxide 400 mg (241.3 mg magnesium) tablet RxNorm: 1 71755 1/2 Tablet(s) PO QD 12/15/2018 12/14/2018 Inactive Flonase Allergy Relief 50 mcg/actuation nasal spray,suspensi on RxNorm: 0529995 2 SPRAY NASAL QHS 11/09/2018 12/11/2018 Inactive temazepam 15 mg capsule RxNorm: 985491 1 Capsule(s) PO QHS 11/08/1901/02/2019 Inactive Synthroid 50 mcg tablet RxNorm: 427008 1 Tablet(s) PO QD 10/21/2018 0 01/15/2019 Inactive potassium chloride ER 20 mEq tablet,extended release RxNorm: 921513 Tablet(s) 1 TABLET(S) PO BID 10/19/2018 04/09/2019 Inactive Patient reque sts 90 days supplyPatient requests 90 days supply Flonase Allergy Relief 50 mcg/actuation nasal spray,suspensi on RxNorm: 8510619 2 SPRAY NASAL QHS 10/14/2018 12/11/2018 Inactive Patient reques ts 90 days supply Flonase Allergy Relief 50 mcg/actuation nasal spray,suspensi on RxNorm: 0326361 2 [place] NASAL QHS 10/13/2018 10/13/2018 Inactive temazepam 15 mg capsule RxNorm: 321596 1 Capsule(s) PO QHS 10/06/19 19 11/06/2018 Inactive Synthroid 50 mcg tablet RxNorm: 042874 1 Tablet(s) PO QD 10/05/2018 0 10/20/2018 Inactive promethazine 6.25 mg/5 mL oral syrup RxNorm: 723159 5 M illiliter(s) PO Q6H as needed for cough 09/30/2018 12/11/2018 Inactive promethazine-DM 6.25 mg-15 mg/5 mL oral syrup RxNorm: 611381 5 PO Q6H as needed for cough 09/30/2018 12/11/2018 Inactive prednisone 10 mg tablet RxNorm: 694100 1 Tablet(s) PO QD 09/27/2018 0 09/26/2018 Inactive prednisone 10 mg tablet RxNorm: 929326 1 Tablet(s) PO QD 09/27/2018 0 10/03/2018 Inactive cefdinir 300 mg capsule RxNorm: 138770 1 Capsule(s) PO BID 09/24/1909/29/2018 Inactive Macrobid 100 mg capsule RxNorm: 933993 1 Capsule(s) PO BID 09/21/19 19 09/25/2018 Inactive potassium chloride ER 20 mEq tablet,extended release RxNorm: 286972 1 TABLET(S) PO BID 09/14/2018 10/13/2018 Inactive Patient reques ts 90 days supplyPatient requests 90 days supply potassium chloride ER 20 mEq tablet,extended release RxNorm: 891632 1 Tablet(s) PO BID 09/12/2018 09/13/2018 Inactive Patient reques ts 90 days supply Macrobid 100 mg capsule RxNorm: 201314 1 Capsule(s) PO BID 09/06/1909/11/2018 Inactive potassium chloride ER 20 mEq tablet,extended release RxNorm: 851624 1 TABLET(S) PO QD 1 TABLET(S) PO QD 08/26/2018 09/11/2018 Inactive Patien t requests 90 days supply potassium chloride ER 20 mEq tablet,extended release RxNorm: 062190 1 Tablet(s) PO QD 1 TABLET(S) PO QD 08/26/2018 08/25/2018 Inactive potassium chloride ER 20 mEq tablet,extended release RxNorm: 370539 1 TABLET(S) PO QD 08/25/2018 08/25/2018 Inactive Synthroid 50 mcg tablet RxNorm: 524711 1 TABLET(S) PO QD 08/2309/04/2018 Inactive potassium chloride ER 20 mEq tablet,extended release RxNorm: 555867 1 Tablet(s) PO QD 07/28/2018 08/24/2018 Inactive potassium chloride ER 20 mEq tablet,extended release RxNorm: 092395 1 Tablet(s) PO QD 07/28/2018 07/27/2018 Inactive hydrochlorothiazide 25 mg tablet RxNorm: 722980 1 Tablet(s) PO QAM 06/27/2018 12/18/2018 Inactive Synthroid 50 mcg tablet RxNorm: 023769 1 Tablet(s) PO QD DAW1 06/2708/22/2018 Inactive Synthroid 50 mcg tablet RxNorm: 449113 1 TABLET(S) PO QD DAW1 06/1306/26/2018 Inactive Synthroid 75 mcg tablet RxNorm: 790878 1 TABLET(S) PO QD 06/13/2018 0 09/04/2018 Inactive BRAND ONLY mupirocin 2 % topical ointment RxNorm: 331186 1 Applica tion TOP BID to affected area as needed 05/03/2018 09/14/2018 Inactive hydrochlorothiazide 25 mg tablet RxNorm: 661939 1 TABLET(S) PO QD 1 07/02/2017 06/26/2018 Inactive Synthroid 50 mcg tablet RxNorm: 593194 1 Tablet(s) PO QD DAW1 04/1506/12/2018 Inactive Synthroid 50 mcg tablet RxNorm: 251050 1 Tablet(s) PO QD DAW1 04/1504/14/2018 Inactive Synthroid 75 mcg tablet RxNorm: 878521 1 Tablet(s) PO QD 03/15/2018 1 06/14/2017 Inactive BRAND ONLY temazepam 15 mg capsule RxNorm: 957270 1 Capsule(s) PO QHS 03/15/20 18 06/12/2018 Inactive Synthroid 75 mcg tablet RxNorm: 966982 1 Tablet(s) PO QD 01/27/2018 1 Inactive BRAND ONLY Synthroid 75 mcg tablet RxNorm: 219800 1 Tablet(s) PO QD (6 day s per week) 01/17/2018 01/26/2018 Inactive BRAND ONLY Duexis 800 mg-26.6 mg tablet RxNorm: 4275129 1/2 Tablet(s) PO BID 0 10/20/2017 10/22/2017 Inactive Synthroid 75 mcg tablet RxNorm: 131409 1 Tablet(s) PO QD 09/17/2017 1 Inactive BRAND ONLY hydrochlorothiazide 25 mg tablet RxNorm: 496831 1 TABLET(S) PO QD 0 08/30/2017 05/01/2018 Inactive hydrochlorothiazide 25 mg tablet RxNorm: 011754 1 Tablet(s) PO QAM 06/03/2017 09/14/2018 Inactive hydrochlorothiazide 12.5 mg tablet RxNorm: 912341 1 Tablet(s) PO QA M 05/25/2017 06/02/2017 Inactive Synthroid 75 mcg tablet RxNorm: 387512 1 Tablet(s) PO QD 05/14/2017 0 09/17/2017 Inactive BRAND ONLY Restoril 15 mg capsule RxNorm: 471612 TAKE 1 CAPSULE BY MOUTH EVERY NIGHT AT BEDTIME NEEDED 03/05/2017 04/02/2017 Inactive Synthroid 75 mcg tablet RxNorm: 463653 1 Tablet(s) PO QD 01/18/2017 1 07/15/2016 Inactive BRAND ONLY Synthroid 50 mcg tablet RxNorm: 786870 1 Tablet(s) PO QD 01/13/2017 0 01/17/2017 Inactive tizanidine 2 mg tablet RxNorm: 468833 1 Tablet(s) PO QHS for spasm 01/04/2017 03/21/2017 Inactive tizanidine 2 mg tablet RxNorm: 827727 1 Tablet(s) PO QHS for spasm 12/17/2016 01/04/2017 Inactive hydrochlorothiazide 25 mg tablet RxNorm: 276402 1 Tablet(s) PO QD 0 12/04/2016 01/03/2017 Inactive Synthroid 50 mcg tablet RxNorm: 072439 1 Tablet(s) PO QD as directe d 11/18/2016 01/13/2017 Inactive Synthroid 75 mcg tablet RxNorm: 987737 1 Tablet(s) PO QD as directe d 11/18/2016 01/10/2017 Inactive Restoril 15 mg capsule RxNorm: 297873 1 Capsule(s) PO QHS as ne eded for sleep 11/16/2016 03/05/2017 Inactive losartan 50 mg tablet RxNorm: 587792 1 Tablet(s) PO BID 10/19/2016 Inactive prednisone 20 mg tablet RxNorm: 276987 1 Tablet(s) PO QD 10/08/2016 0 10/07/2016 Inactive clindamycin 300 mg capsule RxNorm: 218303 1 Capsule(s) PO TID 10/0810/17/2016 Inactive prednisone 20 mg tablet RxNorm: 185989 1 Tablet(s) PO QD 10/08/2016 0 10/12/2016 Inactive clindamycin 300 mg capsule RxNorm: 434851 1 Capsule(s) PO TID 10/0810/07/2016 Inactive cephalexin 500 mg capsule RxNorm: 542279 1 Capsule(s) PO TID 201610/07/2016 Inactive levothyroxine 75 mcg tablet RxNorm: 097994 TAKE 1 TABLET BY TONE TH EVERY DAY 10/02/2016 10/04/2016 Inactive levothyroxine 75 mcg tablet RxNorm: 507192 1 Tablet(s) PO QD 201610/04/2016 Inactive Restoril 15 mg capsule RxNorm: 602825 1 Capsule(s) PO QHS 08/23/2016 11/15/2016 Inactive levothyroxine 75 mcg tablet RxNorm: 425541 1 Tablet(s) PO QD 201608/19/2016 Inactive levothyroxine 75 mcg tablet RxNorm: 776346 1 Tablet(s) PO QD 201609/09/2016 Inactive levothyroxine 50 mcg capsule RxNorm: 492625 1 Capsule(s) PO QD 0206/201608/19/2016 Inactive hydrochlorothiazide 25 mg tablet RxNorm: 021069 1 Tablet(s) PO QD 0 06/23/2016 12/03/2016 Inactive amoxicillin 500 mg tablet RxNorm: 166275 1 Tablet(s) PO TID 016 06/03/2016 Inactive doxycycline hyclate 100 mg capsule RxNorm: 2709380 1 Capsule(s) PO BID 06/03/2016 06/12/2016 Inactive doxycycline hyclate 100 mg capsule RxNorm: 2121877 1 Capsule(s) PO BID 06/03/2016 06/02/2016 Inactive levothyroxine 75 mcg tablet RxNorm: 795366 1 Tablet(s) PO QD 201505/19/2016 Inactive losartan 50 mg tablet RxNorm: 544254 1 TABLET(S) PO BID 04/07/2016 Inactive metoprolol succinate ER 50 mg tablet,extended release 24 hr RxNorm: 050836 1 TABLET(S) PO QHS AND 1/2 TAB IN THE AM--REPLACES 25MG DOSE 04/03/2016 07/27/2016 Inactive Restoril 15 mg capsule RxNorm: 822359 1 Capsule(s) PO QHS as ne eded for sleep 02/24/2016 05/23/2016 Inactive hydrochlorothiazide 12.5 mg tablet RxNorm: 299843 1 Tab let(s) PO QD replaces 25mg dose 01/13/2016 06/22/2016 Inactive metoprolol succinate ER 50 mg tablet,extended release 24 hr RxNorm: 084856 1 Tablet(s) PO QHS and 1/2 tab in the AM--replaces 25mg dose 10/17/2015 04/02/2016 Inactive amlodipine 2.5 mg tablet RxNorm: 504467 1 Tablet(s) PO QHS 10/08/19 16 10/07/2015 Inactive amlodipine 2.5 mg tablet RxNorm: 062281 1 Tablet(s) PO QHS 10/08/19 16 10/16/2015 Inactive losartan 50 mg tablet RxNorm: 734297 1 TABLET(S) PO BID 09/23/2015 Inactive Medrol (Tophre) 4 mg tablets in a dose pack RxNorm: 570626 Take as directed 09/03/2015 10/07/2015 Inactive Lasix 40 mg tablet RxNorm: 447757 1 TABLET(S) PO QD PRN FOR SWELLIN G 08/27/2015 12/04/2015 Inactive Lasix 40 mg tablet RxNorm: 849843 1 Tablet(s) PO QD prn for swellin g 08/01/2015 08/26/2015 Inactive losartan 50 mg tablet RxNorm: 744850 1 Tablet(s) PO BID 06/27/2015 Inactive Zyrtec 10 mg tablet RxNorm: 0277979 1 Tablet(s) PO QD 12/05/2015 Active magnesium oxide 400 mg (241.3 mg magnesium) tablet RxNorm: 54895 1 oral 05/25/2022 Active levothyroxine 50 mcg capsule RxNorm: 905618 1 Capsule(s) PO QD 06/201607/07/2016 Inactive sotalol 80 mg tablet RxNorm: 1306168 1/2 Tablet(s) PO BID 09/05/2018 09/04/2018 Inactive melatonin 1 mg tablet RxNorm: 916569 1 Tablet(s) PO QHS as need ed for sleep 12/05/2015 12/04/2015 Inactive levothyroxine 75 mcg tablet RxNorm: 751936 1 Tablet(s) PO 6 day s a week 07/08/2016 07/07/2016 Inactive Vitamin D3 1,000 unit tablet RxNorm: 692436 1 Tablet(s) PO QD 12/0412/04/2015 Inactive sotalol 80 mg tablet RxNorm: 5768341 1 Tablet(s) PO BID 08/30/2017 Inactive Synthroid 75 mcg tablet RxNorm: 929515 2 Tablet(s) PO M, W, F 09/1509/14/2018 Inactive tizanidine 2 mg tablet RxNorm: 614324 1 Tablet(s) PO QHS for spasm 12/17/2016 12/16/2016 Inactive Nasacort AQ 55 mcg nasal spray aerosol RxNorm: 9364520 [place] ANNELIESE AL as needed 12/12/2018 12/11/2018 Inactive fluocinonide 0.05 % topical gel RxNorm: 670490 TOP as needed on gum s 07/28/2016 07/27/2016 Inactive Flonase Allergy Relief 50 mcg/actuation nasal spray,suspensi on RxNorm: 1917664 2 [place] NASAL QHS 10/13/2018 10/12/2018 Inactive Synthroid 50 mcg tablet RxNorm: 812577 1 Tablet(s) PO Tu, Thur, Sat, Sun 09/20/2018 09/19/2018 Inactive Osteo Bi-Flex (5-Loxin) 1,500 mg-400 unit-100 mg tablet RxNo rm: 1 Tablet(s) PO QD 12/05/2015 12/04/2015 Inactive hydrochlorothiazide 25 mg tablet RxNorm: 371560 1/2 Tablet(s) PO QA M 01/13/2016 01/12/2016 Inactive metoprolol succinate ER 25 mg tablet,extended release 24 hr RxNorm: 696353 1 Tablet(s) PO QD 10/17/2015 10/16/2015 Inactive promethazine-DM 6.25 mg-15 mg/5 mL oral syrup RxNorm: 757776 5 PO Q6H as needed for cough 09/30/2018 09/29/2018 Inactive Synthroid 50 mcg tablet RxNorm: 303420 1 Tablet(s) PO QD 10/05/2018 0 10/04/2018 Inactive mupirocin 2 % topical ointment RxNorm: 155343 1 Applica tion TOP BID to affected area as needed 05/03/2018 05/02/2018 Inactive hydrochlorothiazide 25 mg tablet RxNorm: 723127 1 Tablet(s) PO QOD 01/13/2016 01/12/2016 Inactive Vitamin D3 1000 units Capsule RxNorm: 1 Capsule(s) PO QD 9 12/11/2018 Inactive levothyroxine 75 mcg tablet RxNorm: 613178 1 Tablet(s) PO QD 201505/07/2016 Inactive potassium chloride ER 10 mEq capsule,extended release RxNorm : 695590 1 Capsule(s) PO QD 12/05/2015 12/04/2015 Inactive aspirin 81 mg tablet RxNorm: 014213 1 Tablet(s) PO QHS 01/22/2020 Inactive Claritin 10 mg tablet RxNorm: 728054 1 Tablet(s) PO QD 12/05/2015 Inactive Vitamin B12 1000mcg Tablet RxNorm: 1/2 Tablet(s) PO QD 12/12/2018 12/11/2018 Inactive temazepam 15 mg capsule RxNorm: 138933 1 Capsule(s) PO QHS 03/15/20 18 03/14/2018 Inactive hydrochlorothiazide 25 mg tablet RxNorm: 578352 1 Tablet(s) PO QAM 12/05/2015 12/04/2015 Inactive sotalol 80 mg tablet RxNorm: 2751605 1/2 Tablet(s) PO QD 09/22/2018 0 09/21/2018 Inactive mupirocin 2 % topical ointment RxNorm: 325214 TOP as needed 017 08/24/2016 Inactive hydrochlorothiazide 25 mg tablet RxNorm: 681891 1/2 Tablet(s) PO QA M 05/25/2017 05/24/2017 Inactive amlodipine 10 mg tablet RxNorm: 956686 1 Tablet(s) PO QD 02/16/2019 0 02/15/2019 Inactive Citracal + D Slow Release 600 mg calcium-500 unit tablet,ext .release RxNorm: 2 Tablet(s) PO QD 02/16/2019 02/15/2019 Inactive triamcinolone acetonide 0.1 % topical cream RxNorm: 8959848 TOP as needed 12/12/2018 12/11/2018 Inactive Restoril 15 mg capsule RxNorm: 409166 1 Capsule(s) PO QHS 02/24/2016 02/23/2016 Inactive hydrochlorothiazide 25 mg tablet RxNorm: 326695 1/2 Tablet(s) PO QO D 01/13/2016 01/12/2016 Inactive promethazine 6.25 mg/5 mL oral syrup RxNorm: 155180 5 M illiliter(s) PO Q6H as needed for cough 09/30/2018 09/29/2018 Inactive Centrum Silver Women 8 mg iron-400 mcg-300 mcg tablet RxNorm : 1 Tablet(s) PO QD 08/30/2017 08/29/2017 Inactive losartan 50 mg tablet RxNorm: 616235 1 Tablet(s) PO QHS 01/04/2017 Inactive levothyroxine 75 mcg tablet RxNorm: 749864 1 Tablet(s) PO 6 day s a week 10/05/2016 10/04/2016 Inactive losartan 50 mg tablet RxNorm: 326523 2 Tablet(s) PO QD 06/27/2015 Inactive Culturelle 10 billion cell capsule RxNorm: 705950 1-2 Capsule(s ) PO QD 05/10/2019 05/09/2019 Inactive Culturelle 10 billion cell capsule RxNorm: 881846 1 Capsule(s) PO Q D 08/30/2017 08/29/2017 Inactive Synthroid 75 mcg tablet RxNorm: 438687 1 Tablet(s) PO MW 01/18/2017 01/17/2017 Inactive [...] Code Item Item Code Result Date S [facility] Location COMPLETE BLOOD COUNT [id number] WBC 6.5 10e9/L 09/27/19 19 Unknown COMPLETE BLOOD COUNT [id number] RBC 4.22 10e12/L 2018 Unknown COMPLETE BLOOD COUNT [id number] HEMOGLOBIN 13.3 g/dL 09/27/19 19 Unknown COMPLETE BLOOD COUNT [id number] HEMATOCRIT 38.7 % 09/27/19 19 Unknown COMPLETE BLOOD COUNT 1337404 MCV 91.7 fL 9 Unknown COMPLETE BLOOD COUNT [id number] MCH 31.5 pg 9 Unknown COMPLETE BLOOD COUNT [id number] MCHC 34.4 g/dL 9 Unknown COMPLETE BLOOD COUNT [id number] PLATELET COUNT 326 10e9/L Unknown COMPLETE BLOOD COUNT 6663620 Mean Plt Volume 8.9 fL Unknown COMPLETE BLOOD COUNT 3246874 Neut Auto 69.0 % 9 Unknown COMPLETE BLOOD COUNT [id number] Lymph Auto 16.5 % 09/27/19 19 Unknown COMPLETE BLOOD COUNT [id number] Labette Auto 8.3 % 9 Unknown COMPLETE BLOOD COUNT [id number] RDW 12.2 % 9 Unknown COMPLETE BLOOD COUNT 0528896 Eos Auto 5.9 % 9 Unknown COMPLETE BLOOD COUNT 4829815 Baso Auto 0.3 % 9 Unknown COMPLETE BLOOD COUNT [id number] Neutrophil Abs 4.48 10e9/L Unknown COMPLETE BLOOD COUNT [id number] Lymphocyte Abs 1.07 10e9/L Unknown COMPLETE BLOOD COUNT [id number] Monocyte Abs 0.54 10e9/L 09/06 Unknown COMPLETE BLOOD COUNT [id number] Eosinophil Abs 0.38 10e9/L Unknown COMPLETE BLOOD COUNT [id number] RDW-SD 39.8 fL 9 Unknown COMPLETE BLOOD COUNT [id number] Basophil Abs 0.02 10e9/L 09/06 Unknown GFR CALC 9441702 GFR Non Afr Amr >60 mL/min 12/12/2015 Un known GFR CALC 8999457 GFR Afr Amr >60 mL/min 12/12/2015 [place] [address] Glucose 100 mg/dL 12/11 [place] [address] CREATININE 0.78 mg/dL 12/2015 [place] [address] BUN 14 mg/dL 12/11 [place] [address] SODIUM 132 mmol/L 12/2015 [place] [address] POTASSIUM 3.6 mmol/L 12/2015 [place] [address] CHLORIDE 97 mmol/L 12/11 [place] [address] Bicarbonate 28 mmol/L 12/2015 [place] [address] AGAP 7 mmol/L 12/11 [place] [address] CALCIUM 9.3 mg/dL 12/11 [place] [address] Glucose 92 mg/dL 12/04 [place] [address] CREATININE 0.76 mg/dL [place] [address] BUN 8 mg/dL 12/04 [place] [address] SODIUM 133 mmol/L 11/07 [place] [address] POTASSIUM 4.1 mmol/L 11/07 [place] [address] CHLORIDE 97 mmol/L 12/04 [place] [address] Bicarbonate 27 mmol/L [place] [address] AGAP 9 mmol/L 12/04 [place] [address] CALCIUM 9.8 mg/dL 12/04 Unknown GFR CALC [id number] GFR Afr Amr >60 mL/min 12/05/2015 Unknow n COMPREHENSIVE METABOLIC 31325 AST 36 U/L 2015 Unknown COMPREHENSIVE METABOLIC 87709 ALT 41 U/L 2015 Unknown COMPREHENSIVE METABOLIC 01103 BUN 11 mg/dL 2015 Unknown COMPREHENSIVE METABOLIC 70021 ALBUMIN 4.2 g/dL 2015 Unknown COMPREHENSIVE METABOLIC 00797 CHLORIDE 93 mmol/L 2015 Unknown COMPREHENSIVE METABOLIC 65626 Bili Total 1.0 mg/dL 11/24 Unknown COMPREHENSIVE METABOLIC 97596 ALK PHOS 79 U/L 2015 Unknown COMPREHENSIVE METABOLIC 75141 SODIUM 128 mmol/L 11/24 Unknown COMPREHENSIVE METABOLIC 71439 CREATININE 0.65 mg/dL 11/06 Unknown COMPREHENSIVE METABOLIC 19814 CALCIUM 9.4 mg/dL 2015 Unknown COMPREHENSIVE METABOLIC 07247 POTASSIUM 3.7 mmol/L 11/24 Unknown COMPREHENSIVE METABOLIC 95553 Total Protein 6.9 g/dL Unknown COMPREHENSIVE METABOLIC 19523 Glucose 101 mg/dL 2015 Unknown COMPREHENSIVE METABOLIC 74353 Bicarbonate 27 mmol/L 11/06 Unknown COMPREHENSIVE METABOLIC 77332 AGAP 8 mmol/L 2015 Unknown THYROID STIMULATING HORMONE 84011 TSH 2.983 uIU/mL 11/25/2015 Unknown COMPLETE BLOOD COUNT [id number] WBC 9.0 10e9/L 11/25/19 16 Unknown COMPLETE BLOOD COUNT [id number] RBC 3.98 10e12/L 2015 Unknown COMPLETE BLOOD COUNT 0100528 HEMOGLOBIN 12.8 g/dL 11/25/19 16 Unknown COMPLETE BLOOD COUNT 3230703 HEMATOCRIT 36.1 % 11/25/19 16 Unknown COMPLETE BLOOD COUNT [id number] MCV 90.7 fL 6 Unknown COMPLETE BLOOD COUNT [id number] MCH 32.2 pg 6 Unknown COMPLETE BLOOD COUNT 7809228 MCHC 35.5 g/dL 6 Unknown COMPLETE BLOOD COUNT 5368210 PLATELET COUNT 291 10e9/L Unknown COMPLETE BLOOD COUNT 5414718 Mean Plt Volume 8.8 fL Unknown COMPLETE BLOOD COUNT 8795062 Neut Auto 72.2 % 6 Unknown COMPLETE BLOOD COUNT 3417097 Lymph Auto 19.4 % 11/25/19 16 Unknown COMPLETE BLOOD COUNT 0677558 Labette Auto 7.4 % 6 Unknown COMPLETE BLOOD COUNT 5872106 RDW 11.8 % 6 Unknown COMPLETE BLOOD COUNT 6430691 Eos Auto 0.7 % 6 Unknown COMPLETE BLOOD COUNT 7921045 Baso Auto 0.3 % 6 Unknown COMPLETE BLOOD COUNT 0114083 Neutrophil Abs 6.50 10e9/L Unknown COMPLETE BLOOD COUNT 5925837 Lymphoctye Abs 1.75 10e9/L Unknown COMPLETE BLOOD COUNT 5205486 Monocyte Abs 0.67 10e9/L 11/06 Unknown COMPLETE BLOOD COUNT [id number] Eosinophil Abs 0.06 10e9/L Unknown COMPLETE BLOOD COUNT [id number] RDW-SD 38.1 fL 6 Unknown COMPLETE BLOOD COUNT [id number] Basophil Abs 0.03 10e9/L 11/06 Unknown GFR CALC 2229667 GFR Non Afr Amr >60 mL/min 11/25/2015 Un known GFR CALC 0635563 GFR Afr Amr >60 mL/min 11/25/2015 Unknow n Procedures Procedure Codes Date SARSCOV CORONAVIRUS AG IA CPT-4: 74506 01/27/2022 CEFTRIAXONE SODIUM INJECTION CPT-4: J0696 01/27/2022 THER/PROPH/DIAG INJ SC/IM CPT-4: 22220 01/27/2022 URINALYSIS NONAUTO W/O SCOPE CPT-4: 27886 05/12/2021 RML URINE CULTURE/ COLONY COUNT CPT-4: 95608 05/12/20 FLU VACC PRSV FREE INC ANTIG 65 AND OLDER CPT-4: 56710 02/27/2021 ADMIN INFLUENZA VIRUS VAC CPT-4: G0008 02/27/2021 FLU VACC PRSV FREE INC ANTIG 65 AND OLDER CPT-4: 63577 02/27/2021 RML URINE CULTURE/ COLONY COUNT CPT-4: 26319 11/12/19 21 URINALYSIS NONAUTO W/O SCOPE CPT-4: 28591 11/11/2020 DESTRUCT PREMALG LESION (Cryosurgery) CPT-4: 08336 RML URINE CULTURE/ COLONY COUNT CPT-4: 23515 02/20/20 20 URINALYSIS NONAUTO W/O SCOPE CPT-4: 60102 02/13/2020 RML URINE CULTURE/ COLONY COUNT CPT-4: 50478 02/13/20 20 CEFTRIAXONE SODIUM INJECTION CPT-4: J0696 02/13/2020 THER/PROPH/DIAG INJ SC/IM CPT-4: 65174 02/13/2020 URINALYSIS NONAUTO W/O SCOPE CPT-4: 76329 11/09/2019 RML URINE CULTURE/ COLONY COUNT CPT-4: 18550 11/09/19 20 CEFTRIAXONE SODIUM INJECTION CPT-4: J0696 05/18/2019 THER/PROPH/DIAG INJ SC/IM CPT-4: 43106 05/18/2019 CEFTRIAXONE SODIUM INJECTION CPT-4: J0696 05/17/2019 THER/PROPH/DIAG INJ SC/IM CPT-4: 30773 05/17/2019 RML URINE CULTURE/ COLONY COUNT CPT-4: 34444 05/08/20 19 THROAT CULTURE CPT-4: 94246 05/08/2019 URINALYSIS NONAUTO W/O SCOPE CPT-4: 70710 04/21/2019 RML URINE CULTURE/ COLONY COUNT CPT-4: 92077 04/21/20 19 CEFTRIAXONE SODIUM INJECTION CPT-4: J0696 04/21/2019 THER/PROPH/DIAG INJ SC/IM CPT-4: 22900 04/21/2019 FLU VACC PRSV FREE INC ANTIG 65 AND OLDER CPT-4: 89414 03/02/2019 FLU VACC PRSV FREE INC ANTIG 65 AND OLDER CPT-4: 30720 03/02/2019 ADMIN INFLUENZA VIRUS VAC CPT-4: G0008 03/02/2019 URINALYSIS NONAUTO W/O SCOPE CPT-4: 88099 02/16/2019 Removal impacted cerumen using irrigation/lavage, unilateral CPT-4: 86790 12/14/2018 UA W/MICR CPT-4: 62738 10/05/2018 ROUTINE VENIPUNCTURE CPT-4: 21750 09/26/2018 RML COMPLETE CBC W/AUTO DIFF WBC CPT-4: 43239 019 CEFTRIAXONE SODIUM INJECTION CPT-4: J0696 09/22/2018 THER/PROPH/DIAG INJ SC/IM CPT-4: 86506 09/22/2018 INFLUENZA ASSAY W/OPTIC CPT-4: 00294 09/22/2018 URINALYSIS NONAUTO W/O SCOPE CPT-4: 38928 09/20/2018 CEFTRIAXONE SODIUM INJECTION CPT-4: J0696 09/20/2018 THER/PROPH/DIAG INJ SC/IM CPT-4: 38042 09/20/2018 RML URINE CULTURE/ COLONY COUNT CPT-4: 72926 09/21/19 19 RML URINE CULTURE/ COLONY COUNT CPT-4: 72040 09/15/19 19 URINALYSIS NONAUTO W/O SCOPE CPT-4: 99478 09/05/2018 RML URINE CULTURE/ COLONY COUNT CPT-4: 10582 09/06/19 19 URINALYSIS NONAUTO W/O SCOPE CPT-4: 03931 04/20/2018 RML URINE CULTURE/ COLONY COUNT CPT-4: 39451 04/20/20 18 CERUM REMOVAL CPT-4: 04186 03/18/2018 FLU VACC PRSV FREE INC ANTIG 65 AND OLDER CPT-4: 75689 03/03/2018 ADMIN INFLUENZA VIRUS VAC CPT-4: G0008 03/03/2018 PRESCRIP TRANSMIT VIA ERX SY CPT-4: G8553 05/25/2017 FLU VACC PRSV FREE INC ANTIG 65 AND OLDER CPT-4: 82998 03/08/2017 ADMIN INFLUENZA VIRUS VAC CPT-4: G0008 03/08/2017 PRESCRIP TRANSMIT VIA ERX SY CPT-4: G8553 01/18/2017 PRESCRIP TRANSMIT VIA ERX SY CPT-4: G8553 11/18/2016 RML URINE CULTURE/ COLONY COUNT CPT-4: 34799 10/27/19 17 URINALYSIS NONAUTO W/O SCOPE CPT-4: 87546 10/26/2016 PRESCRIP TRANSMIT VIA ERX SY CPT-4: G8553 10/08/2016 PRESCRIP TRANSMIT VIA ERX SY CPT-4: G8553 10/05/2016 PRESCRIP TRANSMIT VIA ERX SY CPT-4: G8553 06/23/2016 PRESCRIP TRANSMIT VIA ERX SY CPT-4: G8553 06/03/2016 INFLUENZA ASSAY W/OPTIC CPT-4: 63752 05/26/2016 FLU VACC PRSV FREE INC ANTIG 65 AND OLDER CPT-4: 95019 03/19/2016 ADMIN INFLUENZA VIRUS VAC CPT-4: G0008 03/19/2016 PNEUMOCOCCAL VACC 13 CARLIE IM CPT-4: 84270 01/13/2016 ADMIN PNEUMOCOCCAL VACCINE CPT-4: G0009 01/13/2016 PRESCRIP TRANSMIT VIA ERX SY CPT-4: G8553 01/13/2016 URINALYSIS NONAUTO W/O SCOPE CPT-4: 94275 11/27/2015 RML URINE CULTURE/ COLONY COUNT CPT-4: 68271 11/27/19 16 PRESCRIP TRANSMIT VIA ERX SY [...] 97.9 (F) We ight: 141 lbs Code: 27697-9 08/25/2022 Blood Pressure 1: 124/78 Code: 8480-6 Heart Rate 1: 75 bpm Respiratory Rate: 20 bpm SpO2: 98% Temperature: 36.4 (C) / 97.5 (F) We ight: 134 lbs Code: 98341-9 08/11/2022 Blood Pressure 1: 136/74 Code: 8480-6 Heart Rate 1: 69 bpm Respiratory Rate: 18 bpm SpO2: 97% Temperature: 36.7 (C) / 98.0 (F) We ight: 134 lbs Code: 24127-0 07/28/2022 Blood Pressure 1: 126/74 Code: 8480-6 Heart Rate 1: 74 bpm Respiratory Rate: 20 bpm SpO2: 97% Temperature: 36.4 (C) / 97.5 (F) We ight: 135 lbs Code: 82516-0 07/14/2022 Blood Pressure 1: 130/76 Code: 8480-6 Heart Rate 1: 51 bpm SpO2: 100% Temperature: 36.3 (C) / 97.3 (F) Weight: 130 lbs Code : 93357-5 06/23/2022 Blood Pressure 1: 140/80 Code: 8480-6 Heart Rate 1: 58 bpm Respiratory Rate: 20 bpm SpO2: 98% Temperature: 36.3 (C) / 97.3 (F) We ight: 135 lbs Code: 40229-6 05/25/2022 Blood Pressure 1: 161/82 Code: 8480-6 BMI: 24.3 Code: 80443-3 Heart Rate 1: 72 bpm Height: 5'3" Code: 8302-2 SpO2: 97% Temperature: 3 6.3 (C) / 97.3 (F) Weight: 137 lbs Code: 19199-1 03/19/2022 Blood Pressure 1: 140/82 Code: 8480-6 BMI: 23.2 Code: 48489-3 Heart Rate 1: 56 bpm Height: 5'3" Code: 8302-2 SpO2: 92% Temperature: 3 6.8 (C) / 98.2 (F) Weight: 131 lbs Code: 66569-7 02/16/2022 Blood Pressure 1: 154/82 Code: 8480-6 BMI: 23.6 Code: 72402-5 Heart Rate 1: 64 bpm Height: 5'3" Code: 8302-2 Respiratory Rate: 20 bpm SpO2: 96% Temperature: 36.8 (C) / 98.3 (F) Weight: 133 lbs Code: 40476-2 2022 Blood Pressure 1: 140/74 Code: 8480-6 BMI: 22.5 Code: 48573-9 Heart Rate 1: 54 bpm Height: 5'3" Code: 8302-2 Respiratory Rate: 18 bpm SpO2: 96% Temperature: 36.8 (C) / 98.2 (F) Weight: 127 lbs Code: 50982-7 01/27/2022 Blood Pressure 1: 144/80 Code: 8480-6 Heart Rate 1: 84 bpm Respiratory Rate: 22 bpm SpO2: 96% Temperature: 36.7 (C) / 98.0 (F) We ight: 134 lbs Code: 23016-2 10/28/2021 Blood Pressure 1: 152/82 Code: 8480-6 BMI: 22.8 Code: 44448-7 Heart Rate 1: 68 bpm Height: 5'4" Code: 8302-2 Respiratory Rate: 20 bpm SpO2: 98% Temperature: 36.8 (C) / 98.2 (F) Weight: 133 lbs Code: 47274-4 09/23/2021 Blood Pressure 1: 154/78 Code: 8480-6 Heart Rate 1: 66 bpm Respiratory Rate: 18 bpm SpO2: 97% Temperature: 36.2 (C) / 97.1 (F) We ight: 130 lbs Code: 09448-7 08/21/2021 Blood Pressure 1: 166/78 Code: 8480-6 Heart Rate 1: 76 bpm Respiratory Rate: 20 bpm SpO2: 98% Temperature: 36.5 (C) / 97.7 (F) We ight: 134 lbs Code: 62146-5 07/30/2021 Blood Pressure 1: 146/68 Code: 8480-6 Heart Rate 1: 76 bpm Respiratory Rate: 20 bpm SpO2: 98% Temperature: 36.7 (C) / 98.1 (F) We ight: 135 lbs Code: 11272-7 06/19/2021 Blood Pressure 1: 96/50 Code: 8480-6 Heart Rate 1: 72 bpm Respiratory Rate: 20 bpm SpO2: 97% Temperature: 36.8 (C) / 98.3 (F) Weight: 132 lbs Code: 91386-8 05/08/2021 Blood Pressure 1: 132/74 Code: 8480-6 Heart Rate 1: 72 bpm Respiratory Rate: 20 bpm SpO2: 99% Temperature: 36.8 (C) / 98.2 (F) We ight: 132 lbs Code: 78242-0 04/28/2021 Blood Pressure 1: 132/62 Code: 8480-6 Heart Rate 1: 88 bpm Respiratory Rate: 20 bpm SpO2: 98% Temperature: 36.6 (C) / 97.9 (F) We ight: 141 lbs Code: 17081-5 03/19/2021 Blood Pressure 1: 140/67 Code: 8480-6 Heart Rate 1: 71 bpm Respiratory Rate: 15 bpm SpO2: 99% Temperature: 36.3 (C) / 97.3 (F) We ight: 142 lbs Code: 81044-7 02/06/2021 Blood Pressure 1: 152/74 Code: 8480-6 Heart Rate 1: 80 bpm Respiratory Rate: 20 bpm SpO2: 96% Temperature: 36.7 (C) / 98.0 (F) We ight: 138 lbs Code: 91806-0 12/20/2020 Blood Pressure 1: 112/63 Code: 8480-6 Heart Rate 1: 80 bpm Respiratory Rate: 16 bpm SpO2: 99% Temperature: 36.4 (C) / 97.6 (F) We ight: 136 lbs Code: 51474-1 12/11/2020 Blood Pressure 1: 123/64 Code: 8480-6 BMI: 23.5 Code: 83116-3 Heart Rate 1: 68 bpm Height: 5'4" Code: 8302-2 Respiratory Rate: 15 bpm SpO2: 98% Temperature: 36.2 (C) / 97.2 (F) Weight: 137 lbs Code: 80722-1 11/11/2020 Blood Pressure 1: 154/82 Code: 8480-6 Heart Rate 1: 76 bpm SpO2: 99% Temperature: 36.9 (C) / 98.5 (F) Weight: 136 lbs Code: 49896-6 09/05/2020 Blood Pressure 1: 150/66 Code: 8480-6 Heart Rate 1: 80 bpm Respiratory Rate: 20 bpm SpO2: 99% Temperature: 37.0 (C) / 98.6 (F) We ight: 132 lbs Code: 51589-0 07/29/2020 Blood Pressure 1: 152/72 Code: 8480-6 Heart Rate 1: 84 bpm Respiratory Rate: 20 bpm SpO2: 97% Temperature: 36.8 (C) / 98.2 (F) We ight: 133 lbs Code: 47560-3 06/24/2020 Blood Pressure 1: 112/68 Code: 8480-6 Heart Rate 1: 72 bpm Respiratory Rate: 20 bpm SpO2: 98% Temperature: 36.8 (C) / 98.2 (F) We ight: 130 lbs Code: 38806-0 06/21/2020 Blood Pressure 1: 129/78 Code: 8480-6 He art Rate 1: 81 bpm 02/29/2020 Blood Pressure 1: 136/70 Code: 8480-6 Heart Rate 1: 76 bpm Respiratory Rate: 20 bpm SpO2: 98% Temperature: 36.4 (C) / 97.5 (F) We ight: 130 lbs Code: 40606-6 02/22/2020 Blood Pressure 1: 142/67 Code: 8480-6 Heart Rate 1: 64 bpm Respiratory Rate: 16 bpm SpO2: 98% Temperature: 36.5 (C) / 97.7 (F) We ight: 128 lbs Code: 07912-5 02/13/2020 Blood Pressure 1: 124/80 Code: 8480-6 Heart Rate 1: 61 bpm Respiratory Rate: 15 bpm SpO2: 97% Temperature: 36.2 (C) / 97.1 (F) We ight: Code: 88939-4 2020 Blood Pressure 1: 124/60 Code: 8480-6 Heart Rate 1: 92 bpm Respiratory Rate: 20 bpm SpO2: 97% Temperature: 36.4 (C) / 97.5 (F) We ight: 129 lbs Code: 08595-8 01/22/2020 Blood Pressure 1: 134/54 Code: 8480-6 Heart Rate 1: 72 bpm Respiratory Rate: 20 bpm SpO2: 97% Temperature: 37.1 (C) / 98.7 (F) We ight: 128 lbs Code: 08928-9 12/26/2019 Blood Pressure 1: 124/74 Code: 8480-6 Heart Rate 1: 64 bpm Respiratory Rate: 20 bpm SpO2: 98% Temperature: 37.0 (C) / 98.6 (F) We ight: 126 lbs Code: 48943-0 11/27/2019 Blood Pressure 1: 134/73 Code: 8480-6 Heart Rate 1: 116 bpm Respiratory Rate: 17 bpm SpO2: 97% Temperature: 36.7 (C) / 98.0 (F) We ight: 134 lbs Code: 76350-4 11/09/2019 Blood Pressure 1: 126/68 Code: 8480-6 Heart Rate 1: 92 bpm Respiratory Rate: 20 bpm SpO2: 97% Temperature: 37.2 (C) / 98.9 (F) We ight: 135 lbs Code: 19911-6 10/10/2019 Blood Pressure 1: 117/65 Code: 8480-6 Heart Rate 1: 66 bpm Respiratory Rate: 16 bpm SpO2: 99% Temperature: 36.7 (C) / 98.0 (F) We ight: 130 lbs Code: 80607-5 07/13/2019 Blood Pressure 1: 144/70 Code: 8480-6 BMI: 23.0 Code: 21778-2 Heart Rate 1: 92 bpm Height: 5'4" Code: 8302-2 Respiratory Rate: 20 bpm SpO2: 98% Temperature: 36.8 (C) / 98.2 (F) Weight: 133 lbs Code: 84502-3 05/18/2019 Blood Pressure 1: 122/60 Code: 8480-6 Heart Rate 1: 92 bpm Respiratory Rate: 20 bpm SpO2: 97% Temperature: 37.0 (C) / 98.6 (F) 05/17/2019 Blood Pressure 1: 122/74 Code: 8480-6 Heart Rate 1: 84 bpm Respiratory Rate: 20 bpm SpO2: 98% Temperature: 37.2 (C) / 99.0 (F) We ight: 130 lbs Code: 32827-3 04/24/2019 Blood Pressure 1: 124/64 Code: 8480-6 Heart Rate 1: 93 bpm SpO2: 99% Temperature: 36.8 (C) / 98.3 (F) Weight: 134 lbs Code: 02259-7 04/10/2019 Blood Pressure 1: 128/68 Code: 8480-6 Heart Rate 1: 73 bpm SpO2: 99% Temperature: 37.2 (C) / 98.9 (F) Weight: 134 lbs Code: 91741-0 02/16/2019 Blood Pressure 1: 128/64 Code: 8480-6 Heart Rate 1: 72 bpm Respiratory Rate: 20 bpm SpO2: 97% Temperature: 36.8 (C) / 98.2 (F) We ight: 129 lbs Code: 07310-3 12/20/2018 Blood Pressure 1: 152/70 Code: 8480-6 Heart Rate 1: 87 bpm Respiratory Rate: 20 bpm SpO2: 98% Temperature: 36.9 (C) / 98.5 (F) We ight: 127 lbs Code: 70238-0 12/14/2018 Blood Pressure 1: 122/68 Code: 8480-6 Heart Rate 1: 80 bpm Respiratory Rate: 18 bpm SpO2: 96% Temperature: 36.8 (C) / 98.2 (F) 12/12/2018 Blood Pressure 1: 140/68 Code: 8480-6 Heart Rate 1: 75 bpm Respiratory Rate: 18 bpm SpO2: 97% Temperature: 36.2 (C) / 97.1 (F) We ight: 127 lbs Code: 03608-0 10/19/2018 Blood Pressure 1: 126/64 Code: 8480-6 Heart Rate 1: 88 bpm Respiratory Rate: 20 bpm SpO2: 96% Temperature: 37.1 (C) / 98.8 (F) We ight: 123 lbs Code: 99189-7 10/13/2018 Blood Pressure 1: 132/62 Code: 8480-6 He art Rate 1: 86 bpm 10/05/2018 Blood Pressure 1: 114/58 Code: 8480-6 Heart Rate 1: 72 bpm SpO2: 98% Temperature: 36.9 (C) / 98.5 (F) Weight: 120 lbs Code: 41629-2 09/28/2018 Blood Pressure 1: 126/64 Code: 8480-6 Heart Rate 1: 76 bpm Respiratory Rate: 20 bpm SpO2: 97% Temperature: 37.2 (C) / 98.9 (F) 09/26/2018 Blood Pressure 1: 132/66 Code: 8480-6 Heart Rate 1: 79 bpm Respiratory Rate: 20 bpm SpO2: 97% Temperature: 37.1 (C) / 98.7 (F) We ight: 119 lbs Code: 18194-5 09/23/2018 Blood Pressure 1: 112/64 Code: 8480-6 Heart Rate 1: 85 bpm Respiratory Rate: 20 bpm SpO2: 95% Temperature: 36.9 (C) / 98.5 (F) We ight: 119 lbs 8 oz Code: 25040-1 09/22/2018 Blood Pressure 1: 116/58 Code: 8480-6 Heart Rate 1: 88 bpm Respiratory Rate: 20 bpm SpO2: 96% Temperature: 37.9 (C) / 100. 2 (F) 09/20/2018 Blood Pressure 1: 136/70 Code: 8480-6 Heart Rate 1: 109 bpm Respiratory Rate: 20 bpm SpO2: 98% Temperature: 37.0 (C) / 98.6 (F) We ight: 122 lbs Code: 66925-5 09/15/2018 Blood Pressure 1: 134/62 Code: 8480-6 Heart Rate 1: 68 bpm Respiratory Rate: 20 bpm SpO2: 97% Temperature: 36.8 (C) / 98.2 (F) We ight: 124 lbs Code: 83338-5 09/08/2018 Blood Pressure 1: 132/62 Code: 8480-6 Heart Rate 1: 83 bpm Respiratory Rate: 18 bpm SpO2: 94% Temperature: 36.9 (C) / 98.4 (F) We ight: 123 lbs Code: 94209-3 09/05/2018 Blood Pressure 1: 142/68 Code: 8480-6 Heart Rate 1: 70 bpm Respiratory Rate: 18 bpm SpO2: 98% Temperature: 37.0 (C) / 98.6 (F) We ight: 123 lbs Code: 15220-6 03/18/2018 Blood Pressure 1: 132/62 Code: 8480-6 Heart Rate 1: 71 bpm Respiratory Rate: 18 bpm SpO2: 95% Temperature: 36.7 (C) / 98.1 (F) We ight: 126 lbs Code: 57168-7 03/03/2018 Blood Pressure 1: 148/60 Code: 8480-6 BMI: 22.5 Code: 37697-8 Heart Rate 1: 72 bpm Height: 5'4" Code: 8302-2 Respiratory Rate: 20 bpm SpO2: 96% Temperature: 36.9 (C) / 98.4 (F) Weight: 130 lbs Code: 74343-4 02/16/2018 Blood Pressure 1: 154/70 Code: 8480-6 BMI: 21.8 Code: 40470-7 Heart Rate 1: 72 bpm Height: 5'4" Code: 8302-2 Respiratory Rate: 20 bpm SpO2: 97% Temperature: 36.9 (C) / 98.5 (F) Weight: 126 lbs Code: 86155-1 01/26/2018 Blood Pressure 1: 126/78 Code: 8480-6 BMI: 21.8 Code: 65744-3 Heart Rate 1: 80 bpm Height: 5'4" Code: 8302-2 Respiratory Rate: 20 bpm SpO2: 97% Temperature: 36.6 (C) / 97.8 (F) Weight: 126 lbs Code: 65692-2 11/30/2017 Blood Pressure 1: 168/78 Code: 8480-6 BMI: 22.1 Code: 14979-9 Heart Rate 1: 64 bpm Height: 5'4" Code: 8302-2 Respiratory Rate: 20 bpm SpO2: 96% Temperature: 37.0 (C) / 98.6 (F) Weight: 128 lbs Code: 17896-2 10/20/2017 Blood Pressure 1: 146/70 Code: 8480-6 BMI: 22.1 Code: 86927-5 Heart Rate 1: 72 bpm Height: 5'4" Code: 8302-2 Respiratory Rate: 20 bpm SpO2: 97% Temperature: 36.7 (C) / 98.1 (F) Weight: 128 lbs Code: 21306-0 08/30/2017 Blood Pressure 1: 134/68 Code: 8480-6 BMI: 22.5 Code: 65088-8 Heart Rate 1: 72 bpm Height: 5'4" Code: 8302-2 Respiratory Rate: 20 bpm Temperatu re: 36.9 (C) / 98.4 (F) Weight: 130 lbs Code: 14764-9 05/25/2017 Blood Pressure 1: 144/60 Code: 8480-6 BMI: 22.3 Code: 71490-3 Heart Rate 1: 64 bpm Height: 5'4" Code: 8302-2 Respiratory Rate: 20 bpm SpO2: 95% Temperature: 36.8 (C) / 98.2 (F) Weight: 129 lbs Code: 12248-8 03/22/2017 Blood Pressure 1: 124/70 Code: 8480-6 BMI: 21.4 Code: 51640-0 Heart Rate 1: 64 bpm Height: 5'4" Code: 8302-2 Respiratory Rate: 20 bpm Temperatu re: 36.9 (C) / 98.4 (F) Weight: 124 lbs Code: 89344-7 03/08/2017 Blood Pressure 1: 142/78 Code: 8480-6 He art Rate 1: 64 bpm 01/18/2017 Blood Pressure 1: 136/64 Code: 8480-6 BMI: 21.9 Code: 13862-9 Heart Rate 1: 68 bpm Height: 5'4" Code: 8302-2 Respiratory Rate: 20 bpm SpO2: 96% Temperature: 36.8 (C) / 98.2 (F) Weight: 127 lbs Code: 38816-8 01/11/2017 Blood Pressure 1: 142/60 Code: 8480-6 Heart Rate 1: 60 bpm SpO2: 96% 01/04/2017 Blood Pressure 1: 148/70 Code: 8480-6 He art Rate 1: 68 bpm 12/28/2016 Blood Pressure 1: 132/64 Code: 8480-6 BMI: 21.4 Code: 73017-7 Heart Rate 1: 68 bpm Height: 5'4" Code: 8302-2 SpO2: 98% Weight: 124 lb s Code: 07826-9 12/24/2016 Blood Pressure 1: 138/62 Code: 8480-6 He art Rate 1: 74 bpm 12/16/2016 Blood Pressure 1: 124/64 Code: 8480-6 BMI: 21.4 Code: 92391-6 Heart Rate 1: 66 bpm Height: 5'4" Code: 8302-2 Respiratory Rate: 20 bpm SpO2: 97% Temperature: 36.8 (C) / 98.2 (F) Weight: 124 lbs Code: 22573-6 11/18/2016 Blood Pressure 1: 156/64 Code: 8480-6 BMI: 22.3 Code: 57399-0 Heart Rate 1: 64 bpm Height: 5'4" Code: 8302-2 Respiratory Rate: 20 bpm SpO2: 98% Temperature: 36.6 (C) / 97.8 (F) Weight: 129 lbs Code: 63454-1 11/04/2016 Blood Pressure 1: 112/48 Code: 8480-6 BMI: 21.6 Code: 13336-0 Heart Rate 1: 70 bpm Height: 5'4" Code: 8302-2 Respiratory Rate: 22 bpm SpO2: 98% Temperature: 36.4 (C) / 97.6 (F) Weight: 125 lbs Code: 95648-4 10/27/2016 Blood Pressure 1: 118/54 Code: 8480-6 BMI: 21.8 Code: 95820-8 Heart Rate 1: 64 bpm Height: 5'4" Code: 8302-2 Respiratory Rate: 20 bpm SpO2: 97% Temperature: 36.9 (C) / 98.4 (F) Weight: 126 lbs Code: 22376-8 10/13/2016 Blood Pressure 1: 138/82 Code: 8480-6 Heart Rate 1: 66 bpm Height: Code: 8302-2 Respiratory Rate: 20 bpm SpO2: 97% Temperature: 36 .6 (C) / 97.9 (F) Weight: Code: 58626-3 10/08/2016 Blood Pressure 1: 124/56 Code: 8480-6 BMI: 22.8 Code: 02680-1 Heart Rate 1: 76 bpm Height: 5'4" Code: 8302-2 Respiratory Rate: 20 bpm SpO2: 96% Temperature: 36.8 (C) / 98.3 (F) Weight: 132 lbs Code: 15552-6 10/05/2016 Blood Pressure 1: 126/58 Code: 8480-6 BMI: 22.6 Code: 79803-2 Heart Rate 1: 60 bpm Height: 5'4" Code: 8302-2 Respiratory Rate: 20 bpm Temperatu re: 36.7 (C) / 98.1 (F) Weight: 131 lbs Code: 72091-3 08/25/2016 Blood Pressure 1: 130/64 Code: 8480-6 Heart Rate 1: 60 bpm Respiratory Rate: 20 bpm SpO2: 96% Temperature: 37.0 (C) / 98.6 (F) We ight: 136 lbs Code: 76362-2 07/28/2016 Blood Pressure 1: 104/78 Code: 8480-6 BMI: 23.5 Code: 51609-2 Heart Rate 1: 82 bpm Height: 5'4" Code: 8302-2 Respiratory Rate: 24 bpm SpO2: 98% Temperature: 36.8 (C) / 98.2 (F) Weight: 136 lbs Code: 81274-9 06/25/2016 Blood Pressure 1: 152/66 Code: 8480-6 He art Rate 1: 60 bpm 06/23/2016 Blood Pressure 1: 198/102 Code: 8480-6 Heart Rat e 1: 62 bpm Respiratory Rate: 20 bpm SpO2: 95% Temperature: 36.6 (C) / 97.9 (F) We ight: 137 lbs Code: 91065-9 06/03/2016 Blood Pressure 1: 154/86 Code: 8480-6 BMI: 23.4 Code: 81236-6 Heart Rate 1: 56 bpm Height: 5'6" Code: 8302-2 Respiratory Rate: 20 bpm SpO2: 96% Temperature: 36.7 (C) / 98.1 (F) Weight: 143 lbs Code: 89460-3 05/26/2016 Blood Pressure 1: 124/68 Code: 8480-6 BMI: 23.6 Code: 67858-0 Heart Rate 1: 76 bpm Height: 5'6" Code: 8302-2 Respiratory Rate: 20 bpm SpO2: 96% Temperature: 36.2 (C) / 97.2 (F) Weight: 144 lbs Code: 44634-8 05/20/2016 Blood Pressure 1: 156/58 Code: 8480-6 BMI: 24.5 Code: 19293-3 Heart Rate 1: 64 bpm Height: 5'4" Code: 8302-2 Respiratory Rate: 20 bpm Temperatu re: 36.9 (C) / 98.4 (F) Weight: 142 lbs Code: 01499-8 03/19/2016 Blood Pressure 1: 144/74 Code: 8480-6 BMI: 25.9 Code: 01963-7 Heart Rate 1: 76 bpm Height: 5'4" Code: 8302-2 Respiratory Rate: 20 bpm Temperatu re: 36.8 (C) / 98.2 (F) Weight: 150 lbs Code: 85851-9 01/13/2016 Blood Pressure 1: 152/72 Code: 8480-6 BMI: 26.8 Code: 46092-3 Heart Rate 1: 64 bpm Height: 5'4" Code: 8302-2 Respiratory Rate: 20 bpm Temperatu re: 36.7 (C) / 98.1 (F) Weight: 155 lbs Code: 15460-0 12/12/2015 Blood Pressure 1: 128/68 Code: 8480-6 BMI: 26.3 Code: 66186-6 Heart Rate 1: 64 bpm Height: 5'4" Code: 8302-2 Respiratory Rate: 20 bpm Temperatu re: 36.8 (C) / 98.3 (F) Weight: 152 lbs Code: 71454-0 12/05/2015 Blood Pressure 1: 174/88 Code: 8480-6 BMI: 26.8 Code: 91611-1 Heart Rate 1: 68 bpm Height: 5'4" Code: 8302-2 Respiratory Rate: 20 bpm Temperatu re: 36.8 (C) / 98.2 (F) Weight: 155 lbs Code: 85460-3 11/27/2015 Blood Pressure 1: 188/82 Code: 8480-6 He art Rate 1: 70 bpm 10/21/2015 Blood Pressure 1: 148/80 Code: 8480-6 BMI: 27.5 Code: 00942-7 Heart Rate 1: 64 bpm Height: 5'4" Code: 8302-2 Respiratory Rate: 20 bpm Temperatu re: 36.7 (C) / 98.1 (F) Weight: 159 lbs Code: 04801-2 10/17/2015 Blood Pressure 1: 140/74 Code: 8480-6 BMI: 27.5 Code: 75936-8 Heart Rate 1: 80 bpm Height: 5'4" Code: 8302-2 Respiratory Rate: 20 bpm Temperatu re: 36.8 (C) / 98.2 (F) Weight: 159 lbs Code: 48241-9 10/07/2015 Blood Pressure 1: 174/80 Code: 8480-6 BMI: 27.5 Code: 31248-5 Heart Rate 1: 82 bpm Height: 5'4" Code: 8302-2 Respiratory Rate: 20 bpm SpO2: 97% Temperature: 36.7 (C) / 98.0 (F) Weight: 159 lbs Code: 15010-4 09/03/2015 Blood Pressure 1: 146/68 Code: 8480-6 BMI: 27.3 Code: 04266-6 Heart Rate 1: 82 bpm Height: 5'4" Code: 8302-2 Respiratory Rate: 20 bpm SpO2: 97% Temperature: 36.6 (C) / 97.9 (F) Weight: 158 lbs Code: 38421-6 08/01/2015 Blood Pressure 1: 144/78 Code: 8480-6 BMI: 26.9 Code: 94782-6 Heart Rate 1: 64 bpm Height: 5'3" Code: 8302-2 Respiratory Rate: 20 bpm Temperatu re: 36.6 (C) / 97.9 (F) Weight: 154 lbs Code: 88073-6 06/27/2015 Blood Pressure 1: 152/76 Code: 8480-6 BMI: 26.7 Code: 62227-3 Heart Rate 1: 80 bpm Height: 5'3" Code: 8302-2 Respiratory Rate: 20 bpm Temperatu re: 36.7 (C) / 98.1 (F) Weight: 153 lbs Code: 00345-9 Functional Status No Functional Status data Reason [...] Encounter Performer Location Location Address Codes Date ([id number]) OFFICE/OUTPATIENT VISIT EST Diagnosis: Insomnia[ICD10: G47.00] Diagnosis: Other malaise and fatigue[ICD10: R53.81] Diagnosis: 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] Cony POOLE [address] [address] CPT- 4: 66105 10/01/2022 ([id number]) OFFICE/OUTPATIENT VISIT EST Diagnosis: Cervicalgia[ICD10: M54.2] Diagnosis: Labile hypertension[ICD10: R09.89] Diagnosis: Paroxysmal atrial fibrillation[ICD10: I48.0] Diagnosis: Hypothyroidism, unspecified[ICD10: E03.9] Cony POOLE [address] [address] CPT- 4: 76891 08/25/2022 ([id number]) OFFICE/OUTPATIENT VISIT EST Diagnosis: Dyspnea on exertion[ICD10: R06.09] Diagnosis: Chronic atrial fibrillation[ICD10: I48.20] Diagnosis: Essential hypertension[ICD10: I10] Diagnosis: COPD (chronic obstructive pulmonary disease)[ICD10: J44.9] Cony POOLE [address] [address] CPT-4: 29293 08/11/2022 ([id number]) OFFICE/OUTPATIENT VISIT EST Diagnosis: Essential (primary) hypertension[ICD10: I10] Diagnosis: Edema[ICD10: R60.9] Diagnosis: Bradycardia[ICD10: R00.1] Diagnosis: Atrial fibrillation[ICD10: I48.91] Cony POOLE DO [address] [address] CPT-4: 01598 07/28/2022 ([id number]) OFFICE/OUTPATIENT VISIT EST Diagnosis: URI (upper respiratory infection)[ICD10: J06.9] Diagnosis: Chronic airway obstruction, not elsewhere classified[ICD10: J44.9] Cony POOLE DO [address] [address] CPT-4: 78533 07/14/2022 ([id number]) OFFICE/OUTPATIENT VISIT EST Diagnosis: Atrial fibrillation[ICD10: I48.91] Diagnosis: Essential (primary) hypertension[ICD10: I10] Diagnosis: Hypothyroidism[ICD10: E03.9] Cony POOLE DO [address] [address] CPT-4: 16883 06/23/2022 ([id number]) OFFICE/OUTPATIENT VISIT EST Diagnosis: Essential (primary) hypertension[ICD10: I10] Diagnosis: Chronic atrial fibrillation[ICD10: I48.20] Diagnosis: Chronic airway obstruction, not elsewhere classified[ICD10: J44.9] Diagnosis: Hypothyroidism[ICD10: E03.9] Cony POOLE DO [address] [address] CPT-4: 97165 05/25/2022 ([id number]) OFFICE/OUTPATIENT VISIT EST Diagnosis: COPD (chronic obstructive pulmonary disease)[ICD10: J44.9] Diagnosis: Essential hypertension[ICD10: I10] Diagnosis: Hypothyroidism[ICD10: E03.9] Diagnosis: Allergic rhinitis[ICD10: J30.9] Diagnosis: Unsteady gait[ICD10: R26.81] Cony POOLE DO [address] [address] CPT-4: 23434 03/19/2022 ([id number]) OFFICE/OUTPATIENT VISIT EST Diagnosis: COPD exacerbation[ICD10: J44.1] Diagnosis: COPD (chronic obstructive pulmonary disease)[ICD10: J44.9] Cony POOLE DO [address] [address] CPT-4: 02445 02/16/2022 ([id number]) OFFICE/OUTPATIENT VISIT EST Diagnosis: COPD exacerbation[ICD10: J44.1] Cony POOLE DO [address] [address] CPT-4: 64514 2022 ([id number]) OFFICE/OUTPATIENT VISIT EST Diagnosis: Contact with and (suspected) exposure to other viral communicable diseases[ICD10: Z20.828] Diagnosis: COPD with acute lower respiratory infection[ICD10: J44.0] Keeley POOLE [address] [address] CPT-4: 37564 01/27/2022 ([id number]) OFFICE/OUTPATIENT VISIT EST Diagnosis: Essential (primary) hypertension[ICD10: I10] Diagnosis: Hypothyroidism, unspecified[ICD10: E03.9] Diagnosis: Chronic obstructive pulmonary disease, unspecified[ICD10: J44.9] Cony POOLE [address] [address] CPT-4: 80150 10/28/2021 ([id number]) OFFICE/OUTPATIENT VISIT EST Diagnosis: Essential (primary) hypertension[ICD10: I10] Diagnosis: Atrial fibrillation[ICD10: I48.91] Diagnosis: Edema[ICD10: R60.9] Diagnosis: Mixed hyperlipidemia[ICD10: E78.2] Diagnosis: Hypothyroidism[ICD10: E03.9] Diagnosis: Dyspnea[ICD10: R06.00] Diagnosis: Allergic rhinitis, unspecified[ICD10: J30.9] Cony HayesMelina NGOC DO [address] [address] CPT- 4: 04943 09/23/2021 ([id number]) OFFICE/OUTPATIENT VISIT EST Diagnosis: Essential (primary) hypertension[ICD10: I10] Diagnosis: Edema[ICD10: R60.9] Diagnosis: Stasis dermatitis[ICD10: I87.2] Diagnosis: Dyspnea[ICD10: R06.00] Cony Bowmanbonygloria HayesMelina LISA Albarran DO [address] [address] CPT-4: 67164 08/21/2021 ([id number]) OFFICE/OUTPATIENT VISIT EST Diagnosis: Essential (primary) hypertension[ICD10: I10] Diagnosis: Atrial fibrillation[ICD10: I48.91] Diagnosis: Edema[ICD10: R60.9] Cony Bowmanlea CONY AbigailMelina NGOC [address] [address] CPT-4: 19437 07/30/19 ([id number]) OFFICE/OUTPATIENT VISIT EST Diagnosis: Essential hypertension[ICD10: I10] Diagnosis: 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] Diagnosis: Reactive airway disease[ICD10: J45.909] Diagnosis: Sciatica[ICD10: M54.30] Cony Colbylea CONY AbigailMelina MIGUEL A GLORIA [address] [address] CPT-4: 13393 06/19/2021 ([id number]) NURSE/OUTPATIENT VISIT EST Diagnosis: Urinary tract infection[ICD10: N39.0] Cony Bowmanlea DANTEMARY ZARAGOZA AbigailMelina NGOC [address] [address] CPT-4: 60668 05/12/2021 ([id number]) OFFICE/OUTPATIENT VISIT EST Diagnosis: Edema leg[ICD10: R60.0] Diagnosis: Recurrent UTI[ICD10: N39.0] 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] Conyjeannette Bowmanlea CONY [facility] [address] [place] [address] CPT-4: 43176 05/08/2021 ([id number]) OFFICE/OUTPATIENT VISIT EST Diagnosis: Cervical radiculopathy[ICD10: M54.12] Diagnosis: 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] Cony POOLE DO [employer] [address] [place] [address] CPT- 4: 73420 04/28/2021 ([id number]) OFFICE/OUTPATIENT VISIT EST Diagnosis: Other fatigue[ICD10: R53.83] Diagnosis: Hypothyroidism[ICD10: E03.9] Diagnosis: Vitamin B12 deficiency anemia, unspecified[ICD10: D51.9] Keeley POOLE DO [address] [address] CPT-4: 81973 03/19/2021 ([id number]) NURSE/OUTPATIENT VISIT EST Diagnosis: Encounter for immunization[ICD10: Z23] Cony GRADYER [address] [address] CPT-4: 11202 02/27/2021 ([id number]) OFFICE/OUTPATIENT VISIT EST Diagnosis: Atrial fibrillation[ICD10: I48.91] Diagnosis: Essential (primary) hypertension[ICD10: I10] Diagnosis: Hypothyroidism[ICD10: E03.9] Diagnosis: Lymphadenopathy of right cervical region[ICD10: R59.0] Diagnosis: Osteopenia[ICD10: M85.80] Cony WAY [address] [address] CPT-4: 81708 02/06/2021 ([id number]) OFFICE/OUTPATIENT VISIT EST Diagnosis: Skin lesion of right leg[ICD10: L98.9] Keeley BOWMANNDER [employer] [address] [place] [address] CPT-4: 93476 12/20/2020 ([id number]) OFFICE/OUTPATIENT VISIT EST Diagnosis: Nontraumatic blister of skin[ICD10: R23.8] Keeley POOLE DO [address] [address] CPT- 4: 59056 12/11/2020 ([id number]) OFFICE/OUTPATIENT VISIT EST Diagnosis: Nocturia[ICD10: R35.1] Diagnosis: Essential hypertension[ICD10: I10] Conydella OCONNELL DEVIN POOLE DO [address] [address] CPT-4: 97170 11/11/2020 ([id number]) OFFICE/OUTPATIENT VISIT EST Diagnosis: Essential hypertension[ICD10: I10] Diagnosis: Paroxysmal atrial fibrillation[ICD10: I48.0] Diagnosis: Hypothyroidism[ICD10: E03.9] Cony Colbylea CONY Jeanine POOLE DO [address] [address] CPT-4: 38309 07/29/2020 ([id number]) OFFICE/OUTPATIENT VISIT EST Diagnosis: Dizziness and giddiness[ICD10: R42] Diagnosis: Essential hypertension[ICD10: I10] Conydella OCONNELL DEVIN POOLE DO [address] [address] CPT-4: 92368 06/24/2020 ([id number]) OFFICE/OUTPATIENT VISIT EST Diagnosis: Weakness[ICD10: R53.1] Apoorva POOLE [address] [address] CPT-4: 49444 06/21/19 21 ([id number]) OFFICE/OUTPATIENT VISIT EST Diagnosis: URI (upper respiratory infection)[ICD10: J06.9] Apoorva Lindaimaldi [facility] [address] [place] [address] CPT-4: 56893 03/19/2020 ([id number]) OFFICE/OUTPATIENT VISIT EST Diagnosis: Essential (primary) hypertension[ICD10: I10] Diagnosis: Atrial fibrillation status post cardioversion[ICD10: I48.91] Diagnosis: Right upper lobe pulmonary nodule[ICD10: R91.1] Cony AVERY SMelina ORENDER DO [address] [address] CPT- 4: 94191 02/29/2020 ([id number]) OFFICE/OUTPATIENT VISIT EST Diagnosis: Stasis dermatitis[ICD10: I87.2] Apoorva BOWMANNDER DO [address] [address] CPT-4: 40943 02/22/2020 ([id number]) NURSE/OUTPATIENT VISIT EST Diagnosis: Urinary tract infection, site not specified[ICD10: N39.0] Cony Solorzano ORENDER DO [address] [address] CPT-4: 52163 02/20/2020 ([id number]) OFFICE/OUTPATIENT VISIT EST Diagnosis: Urinary tract infection[ICD10: N39.0] Apoorva ZARAGOZA SMelina BOWMANNDER DO [address] [address] CPT-4: 39154 02/13/2020 ([id number]) OFFICE/OUTPATIENT VISIT EST Diagnosis: Neck pain[ICD10: M54.2] Diagnosis: Muscle spasm[ICD10: M62.838] Cony AVERY SMelina BOWMANNDER DO [address] [address] CPT-4: 15774 2020 ([id number]) OFFICE/OUTPATIENT VISIT EST Diagnosis: Atrial fibrillation[ICD10: I48.91] Diagnosis: Essential hypertension[ICD10: I10] Diagnosis: Right wrist pain[ICD10: M25.531] Cony AVERY SMelina BOWMANNDER DO [address] [address] CPT-4: 73755 01/22/2020 ([id number]) OFFICE/OUTPATIENT VISIT EST Diagnosis: Paroxysmal atrial fibrillation[ICD10: I48.0] Diagnosis: Essential hypertension[ICD10: I10] Cony Bowmanbonygloria [facility] [address] [place] [address] CPT-4: 03332 12/26/2019 ([id number]) OFFICE/OUTPATIENT VISIT EST Diagnosis: Lung nodule[ICD10: R91.1] Diagnosis: CHF (congestive heart failure)[ICD10: I50.9] Diagnosis: Atrial fibrillation[ICD10: I48.91] Apoorva BOWMANNDER DO [address] [address] CPT-4: 15110 11/27/2019 ([id number]) OFFICE/OUTPATIENT VISIT EST Diagnosis: Urinary tract infection[ICD10: N39.0] Diagnosis: Hypotension[ICD10: I95.9] Cony BOWMAN NDER DO [address] [address] CPT-4: 77329 11/09/2019 ([id number]) OFFICE/OUTPATIENT VISIT EST Diagnosis: Left leg swelling[ICD10: M79.89] Cony Solorzano ORENDER DO [address] [address] CPT-4: 32711 10/10/2019 ([id number]) OFFICE/OUTPATIENT VISIT EST Diagnosis: Muscle spasm[ICD10: M62.838] Cony Solorzano ORENDER DO [address] [address] CPT-4: 14576 08/25/2019 ([id number]) OFFICE/OUTPATIENT VISIT EST Diagnosis: Low back pain[ICD10: M54.5] Diagnosis: Sciatica of left side[ICD10: M54.32] Cony Solorzano ORENDER DO [address] [address] CPT-4: 58733 07/13/2019 ([id number]) OFFICE/OUTPATIENT VISIT EST Diagnosis: Pneumonia due to infectious organism[ICD10: J18.9] Cony HayesMelina ORENDER DO [employer] [address] [place] [phone] CPT- 4: 04915 05/18/2019 ([id number]) OFFICE/OUTPATIENT VISIT EST Diagnosis: Pneumonia due to infectious organism[ICD10: J18.9] Cony POOLE DO [address] [address] CPT- 4: 37317 05/17/2019 ([id number]) NURSE/OUTPATIENT VISIT EST Diagnosis: Urinary tract infection[ICD10: N39.0] Cony POOLE DO [address] [address] CPT-4: 19826 05/08/2019 ([id number]) NURSE/OUTPATIENT VISIT EST Diagnosis: Acute pharyngitis[ICD10: J02.9] Diagnosis: Altered taste[ICD10: R43.2] Cony CONDON DO [address] [address] CPT-4: 38643 05/08/2019 ([id number]) OFFICE/OUTPATIENT VISIT EST Diagnosis: Urinary tract infection, site not specified[ICD10: N39.0] Diagnosis: Stomatitis and mucositis with change of taste[ICD10: K12.1] Cony POOLE DO [address] [address] CPT-4: 68283 04/24/2019 ([id number]) NURSE/OUTPATIENT VISIT EST Diagnosis: Hematuria[ICD10: R31.9] Cony CASTRO DO [address] [address] CPT-4: 61939 04/21/2019 ([id number]) OFFICE/OUTPATIENT VISIT EST Diagnosis: Oral mucositis (ulcerative), unspecified[ICD10: K12.30] Diagnosis: Stomatitis and mucositis with change of taste[ICD10: K12.1] Cony POOLE DO [address] [address] CPT-4: 81681 04/10/2019 ([id number]) NURSE/OUTPATIENT VISIT EST Diagnosis: FLU VACCINE[ICD10: Z23] [facility] [address] [place] [phone] CPT-4: 73972 03/02/2019 ([id number]) OFFICE/OUTPATIENT VISIT EST Diagnosis: Essential (primary) hypertension[ICD10: I10] Diagnosis: Other fatigue[ICD10: R53.83] Diagnosis: Hypothyroidism, unspecified[ICD10: E03.9] Diagnosis: Nocturia[ICD10: R35.1] [facility] [address] [place] [address] CPT-4: 08353 02/16/2019 ([id number]) NURSE/OUTPATIENT VISIT EST Diagnosis: Essential (primary) hypertension[ICD10: I10] Cony POOLE DO [address] [address] CPT- 4: 44060 01/24/2019 ([id number]) OFFICE/OUTPATIENT VISIT EST Diagnosis: Acute upper respiratory infection, unspecified[ICD10: J06.9] [facility]oorva [facility] [address] [place] [address] CPT-4: 70476 12/20/2018 ([id number]) OFFICE/OUTPATIENT VISIT EST Diagnosis: Paroxysmal atrial fibrillation[ICD10: I48.0] Diagnosis: Other fatigue[ICD10: R53.83] Diagnosis: Essential (primary) hypertension[ICD10: I10] Diagnosis: Hypothyroidism, unspecified[ICD10: E03.9] [facility] [address] [place] [address] CPT- 4: 65578 12/12/2018 ([id number]) OFFICE/OUTPATIENT VISIT EST Diagnosis: Essential (primary) hypertension[ICD10: I10] Diagnosis: Allergic rhinitis due to pollen[ICD10: J30.1] Cony [facility] [address] [place] [address] CPT- 4: 49885 10/19/2018 ([id number]) OFFICE/OUTPATIENT VISIT EST Diagnosis: Allergic rhinitis due to pollen[ICD10: J30.1] Diagnosis: Essential (primary) hypertension[ICD10: I10] Cony POOLE [address] [address] CPT- 4: 00008 10/05/2018 ([id number]) OFFICE/OUTPATIENT VISIT EST Diagnosis: Allergic rhinitis due to pollen[ICD10: J30.1] Diagnosis: Other fatigue[ICD10: R53.83] Diagnosis: Hematuria, unspecified[ICD10: R31.9] Cony POOLE [address] [address] CPT-4: 81745 09/28/2018 ([id number]) OFFICE/OUTPATIENT VISIT EST Diagnosis: Allergic rhinitis due to pollen[ICD10: J30.1] Diagnosis: Cough[ICD10: R05] Diagnosis: Dermatitis, unspecified[ICD10: L30.9] Diagnosis: Slow transit constipation[ICD10: K59.01] Cony POOLE [address] [address] CPT- 4: 80863 09/26/2018 ([id number]) OFFICE/OUTPATIENT VISIT EST Diagnosis: Acute bronchitis, unspecified[ICD10: J20.9] Diagnosis: Other specified respiratory disorders[ICD10: J98.8] Merry Justiceyaw POOLE DO [address] [address] CPT- 4: 66834 09/23/2018 ([id number]) OFFICE/OUTPATIENT VISIT EST Diagnosis: Acute bronchitis, unspecified[ICD10: J20.9] Diagnosis: Fever, unspecified[ICD10: R50.9] Cony POOLE [address] [address] CPT-4: 52469 09/22/2018 ([id number]) OFFICE/OUTPATIENT VISIT EST Diagnosis: Tachycardia, unspecified[ICD10: R00.0] Diagnosis: Dysuria[ICD10: R30.0] Diagnosis: Personal history of urinary (tract) infections[ICD10: Z87.440] Merry POOEL DO [address] [address] CPT-4: 22781 09/20/2018 ([id number]) OFFICE/OUTPATIENT VISIT EST Diagnosis: Other fatigue[ICD10: R53.83] Diagnosis: Hypothyroidism, unspecified[ICD10: E03.9] Cony POOLE DO [address] [address] CPT- 4: 15924 09/15/2018 ([id number]) NURSE/OUTPATIENT VISIT EST Diagnosis: Urinary tract infection, site not specified[ICD10: N39.0] Cony POOLE DO [address] [address] CPT-4: 25782 09/14/2018 ([id number]) OFFICE/OUTPATIENT VISIT EST Diagnosis: Chronic fatigue, unspecified[ICD10: R53.82] Diagnosis: Essential (primary) hypertension[ICD10: I10] Diagnosis: Hypothyroidism, unspecified[ICD10: E03.9] Diagnosis: Paroxysmal atrial fibrillation[ICD10: I48.0] Cony POOLE DO [address] [address] CPT- 4: 68115 09/08/2018 ([id number]) OFFICE/OUTPATIENT VISIT EST Diagnosis: Dysuria[ICD10: R30.0] Diagnosis: Personal history of urinary (tract) infections[ICD10: Z87.440] Merry POOLE DO [address] [address] CPT-4: 90836 09/05/2018 ([id number]) NURSE/OUTPATIENT VISIT EST Diagnosis: Essential (primary) hypertension[ICD10: I10] Diagnosis: Edema, unspecified[ICD10: R60.9] Cony POOLE [address] [address] CPT-4: 95746 04/20/2018 ([id number]) OFFICE/OUTPATIENT VISIT EST Diagnosis: FLU VACCINE[ICD10: Z23] Diagnosis: Hypothyroidism, unspecified[ICD10: E03.9] Diagnosis: Essential (primary) hypertension[ICD10: I10] Diagnosis: Localized edema[ICD10: R60.0] Cony POOLE DO [address] [address] CPT-4: 81613 03/03/2018 ([id number]) OFFICE/OUTPATIENT VISIT EST Diagnosis: Atopic dermatitis, unspecified[ICD10: L20.9] Apoorva POOLE DO [address] [address] CPT- 4: 19568 02/16/2018 ([id number]) OFFICE/OUTPATIENT VISIT EST Diagnosis: Pressure ulcer of right heel, stage 1[ICD10: L89.611] Diagnosis: Other fatigue[ICD10: R53.83] Apoorva POOLE DO [address] [address] CPT-4: 20683 01/26/2018 OFFICE/OUTPATIENT VISIT EST Diagnosis: Hypothyroidism, unspecified[ICD10: E03.9] Diagnosis: Essential (primary) hypertension[ICD10: I10] Diagnosis: Localized edema[ICD10: R60.0] Diagnosis: Other fatigue[ICD10: R53.83] Cony POOLE DO [address] [address] CPT-4: 27963 11/30/2017 ([id number]) OFFICE/OUTPATIENT VISIT EST Diagnosis: Other seborrheic keratosis[ICD10: L82.1] Cony POOLE DO [address] [address] CPT- 4: 07508 11/04/2017 ([id number]) OFFICE/OUTPATIENT VISIT EST Diagnosis: Achilles tendinitis, right leg[ICD10: M76.61] Apoorva POOLE DO [address] [place] [address] CPT- 4: 52179 10/20/2017 ([id number]) OFFICE/OUTPATIENT VISIT EST Diagnosis: Essential (primary) hypertension[ICD10: I10] Diagnosis: Hypothyroidism, unspecified[ICD10: E03.9] Diagnosis: Weakness[ICD10: R53.1] Cony Albarran [address] [address] CPT-4: 72909 08/30/2017 ([id number]) OFFICE/OUTPATIENT VISIT EST Diagnosis: Hypothyroidism, unspecified[ICD10: E03.9] Diagnosis: Essential (primary) hypertension[ICD10: I10] Diagnosis: Paroxysmal atrial fibrillation[ICD10: I48.0] Cony POOLE [address] [address] CPT- 4: 35299 05/25/2017 ([id number]) OFFICE/OUTPATIENT VISIT EST Diagnosis: Essential (primary) hypertension[ICD10: I10] Diagnosis: Hypothyroidism, unspecified[ICD10: E03.9] Cony POOLE [address] [address] CPT- 4: 01275 03/22/2017 ([id number]) OFFICE/OUTPATIENT VISIT EST Diagnosis: FLU VACCINE[ICD10: Z23] Cony CASTRO [address] [address] CPT-4: 95092 03/08/2017 ([id number]) OFFICE/OUTPATIENT VISIT EST Diagnosis: Essential (primary) hypertension[ICD10: I10] Diagnosis: Hypothyroidism, unspecified[ICD10: E03.9] Cony POOLE [address] [address] CPT- 4: 12311 01/18/2017 ([id number]) OFFICE/OUTPATIENT VISIT EST Diagnosis: Essential (primary) hypertension[ICD10: I10] Diagnosis: Localized edema[ICD10: R60.0] Diagnosis: Hypotension, unspecified[ICD10: I95.9] Cony POOLE DO [address] [address] CPT-4: 87523 12/16/2016 ([id number]) OFFICE/OUTPATIENT VISIT EST Diagnosis: Hypothyroidism, unspecified[ICD10: E03.9] Diagnosis: Essential (primary) hypertension[ICD10: I10] Cony POOLE DO [address] [address] CPT- 4: 64658 11/18/2016 ([id number]) OFFICE/OUTPATIENT VISIT EST Diagnosis: Hypotension due to drugs[ICD10: I95.2] Diagnosis: Lymphangitis[ICD10: I89.1] Diagnosis: Hypothyroidism, unspecified[ICD10: E03.9] Cony POOLE DO [address] [address] CPT- 4: 12581 11/04/2016 ([id number]) OFFICE/OUTPATIENT VISIT EST Diagnosis: Hypotension due to drugs[ICD10: I95.2] Diagnosis: Other fatigue[ICD10: R53.83] Cony POOLE DO [address] [address] CPT-4: 06604 10/27/2016 ([id number]) OFFICE/OUTPATIENT VISIT EST Diagnosis: Other symptoms and signs involving the genitourinary system[ICD10: R39.89] Cony POOLE DO [address] [address] CPT-4: 66651 10/26/2016 OFFICE/OUTPATIENT VISIT EST Diagnosis: Venous insufficiency (chronic) (peripheral)[ICD10: I87.2] Diagnosis: Lymphangitis[ICD10: I89.1] Diagnosis: Cellulitis of left lower limb[ICD10: L03.116] Cony POOLE DO [address] [address] CPT- 4: 65750 10/13/2016 OFFICE/OUTPATIENT VISIT EST Diagnosis: Cellulitis of left lower limb[ICD10: L03.116] Diagnosis: Lymphangitis[ICD10: I89.1] Cony STEVENSLINE Jeanine MOCTEZUMA [address] [address] CPT-4: 60001 10/08/2016 ([id number]) OFFICE/OUTPATIENT VISIT EST Diagnosis: Hypothyroidism, unspecified[ICD10: E03.9] Diagnosis: Essential (primary) hypertension[ICD10: I10] Diagnosis: Other fatigue[ICD10: R53.83] Diagnosis: Cellulitis of left lower limb[ICD10: L03.116] Cony HOWELLQUELINE AbigailMelina NGCO [address] [address] CPT- 4: 23545 10/05/2016 ([id number]) OFFICE/OUTPATIENT VISIT EST Diagnosis: Essential (primary) hypertension[ICD10: I10] Diagnosis: Localized edema[ICD10: R60.0] Diagnosis: Other fatigue[ICD10: R53.83] Cony Poole CONY AbigailMelina NGOC [address] [address] CPT-4: 19035 08/25/2016 ([id number]) OFFICE/OUTPATIENT VISIT EST Diagnosis: Essential (primary) hypertension[ICD10: I10] Diagnosis: Hypothyroidism, unspecified[ICD10: E03.9] Diagnosis: Weakness[ICD10: R53.1] Cony Colbylea Solorzano COLBYRY Deion [address] [address] CPT-4: 78029 07/28/2016 ([id number]) OFFICE/OUTPATIENT VISIT EST Diagnosis: Essential (primary) hypertension[ICD10: I10] Merlesiria Solorzano COLBYBONYGLORIA [address] [address] CPT- 4: 25613 06/23/2016 ([id number]) OFFICE/OUTPATIENT VISIT EST Diagnosis: Cough[ICD10: R05] Diagnosis: Essential (primary) hypertension[ICD10: I10] Merle Solorzano [address] [address] CPT- 4: 36667 06/03/2016 ([id number]) OFFICE/OUTPATIENT VISIT EST Diagnosis: Acute upper respiratory infection, unspecified[ICD10: J06.9] Diagnosis: Fever, unspecified[ICD10: R50.9] Merle GRADY[address] [address] CPT-4: 25044 05/26/2016 ([id number]) OFFICE/OUTPATIENT VISIT EST Diagnosis: Essential (primary) hypertension[ICD10: I10] Diagnosis: Paroxysmal atrial fibrillation[ICD10: I48.0] Diagnosis: Venous insufficiency (chronic) (peripheral)[ICD10: I87.2] Diagnosis: Primary insomnia[ICD10: F51.01] Diagnosis: Hypothyroidism, unspecified[ICD10: E03.9] Cony GRADY[address] [address] CPT- 4: 31068 05/20/2016 ([id number]) OFFICE/OUTPATIENT VISIT EST Diagnosis: Pain in right ankle and joints of right foot[ICD10: M25.571] Diagnosis: Venous insufficiency (chronic) (peripheral)[ICD10: I87.2] Diagnosis: FLU VACCINE[ICD10: Z23] Cony GRADY [address] [address] CPT-4: 72338 03/19/2016 ([id number]) OFFICE/OUTPATIENT VISIT EST Diagnosis: Essential (primary) hypertension[ICD10: I10] Diagnosis: Localized edema[ICD10: R60.0] Diagnosis: Paroxysmal atrial fibrillation[ICD10: I48.0] Diagnosis: PNEUMOCOCCAL VACCINE[ICD10: Z23] Cony GRAD[address] [address] CPT-4: 98370 01/13/2016 ([id number]) OFFICE/OUTPATIENT VISIT EST Diagnosis: Hypo-osmolality and hyponatremia[ICD10: E87.1] Diagnosis: Essential (primary) hypertension[ICD10: I10] Diagnosis: Paroxysmal atrial fibrillation[ICD10: I48.0] Cony POOLE [address] [address] CPT- 4: 32053 12/12/2015 ([id number]) OFFICE/OUTPATIENT VISIT EST Diagnosis: Essential (primary) hypertension[ICD10: I10] Diagnosis: Edema, unspecified[ICD10: R60.9] Diagnosis: Hypo-osmolality and hyponatremia[ICD10: E87.1] Cony POOLE [address] [address] CPT- 4: 20852 12/05/2015 ([id number]) OFFICE/OUTPATIENT VISIT EST Diagnosis: Hypo-osmolality and hyponatremia[ICD10: E87.1] Diagnosis: Hematuria, unspecified[ICD10: R31.9] Cony POOLE [address] [address] CPT-4: 90424 11/27/2015 ([id number]) OFFICE/OUTPATIENT VISIT EST Diagnosis: Essential (primary) hypertension[ICD10: I10] Diagnosis: Edema, unspecified[ICD10: R60.9] Diagnosis: Dizziness and giddiness[ICD10: R42] Merle David POOLE [address] [address] CPT-4: 01575 10/21/2015 ([id number]) OFFICE/OUTPATIENT VISIT EST Diagnosis: Essential (primary) hypertension[ICD10: I10] Diagnosis: Localized edema[ICD10: R60.0] Diagnosis: Paroxysmal atrial fibrillation[ICD10: I48.0] Cony POOLE [address] [address] CPT- 4: 39812 10/17/2015 ([id number]) OFFICE/OUTPATIENT VISIT EST Diagnosis: Essential (primary) hypertension[ICD10: I10] Diagnosis: Tachycardia, unspecified[ICD10: R00.0] Diagnosis: Hypothyroidism, unspecified[ICD10: E03.9] Diagnosis: Palpitations[ICD10: R00.2] Merle MOCTEZUMA DO [address] [address] CPT-4: 16050 10/07/2015 ([id number]) OFFICE/OUTPATIENT VISIT EST Diagnosis: Acute upper respiratory infection, unspecified[ICD10: J06.9] Merle POOLE DO [address] [address] CPT-4: 72931 09/03/2015 ([id number]) OFFICE/OUTPATIENT VISIT EST Diagnosis: Essential (primary) hypertension[ICD10: I10] Cony POOLE DO [address] [address] CPT- 4: 38297 08/01/2015 OFFICE/OUTPATIENT VISIT NEW Diagnosis: Essential (primary) hypertension[ICD10: I10] Diagnosis: Hypothyroidism, unspecified[ICD10: E03.9] Diagnosis: Family history of malignant neoplasm of breast[ICD10: Z80.3] Cony POOLE DO [address] [address] CPT-4: 24073 06/27/2015 Plan of Care Planned Activity Notes [...] ICD-10 : R09.89 08/25/2022 Appointment: Cony Pooletel: [address] [place], [place] [phone] US FOLLOW UP 08/25/2022 Care Plan: X-RAY EXAM NECK SPINE 4/5VWS LOINC : 71360-9 Pending 08/25/2022 Visit Diagnosis Plan: Chronic atrial [...] ICD-10 : J44.9 08/11/2022 Appointment: Cony Pooletel: [address] [place], [place] [phone] FOLLOW UP 08/11/2022 Appointment: Cony Poole WPtel: [address] [place], [place] [phone] US RESCHEDULED 08/11/2022 Visit Diagnosis Plan: Edema [...] : R00.1 07/28/2022 Appointment: Cony Poole WPtel: [phone] FOLLOW UP 07/28/2022 Patient Education: hydralazine- [employer] Coupon [id number] Completed 07/28/2022 Patient Education: losartan- [employer] Coupon [id number] Completed 07/28/2022 Visit Diagnosis Plan: URI (upper respiratory infection ) Discussion: Influenza A and B and Covid negative Z-pack Continue budesonide and perforomist and add albuterol at least TID Notify if worsening ICD-9 : 465.9 ICD-10 : J06.9 07/14/2022 Appointment: Cony Poole WPtel: [address] [place], [place] [phone] ACUTE ILLNESS 07/14/2022 Visit Diagnosis Plan: Hypothyroidism [...] : I10 06/23/2022 Appointment: Cony Poole WPtel: [address] [place], [place] [phone] FOLLOW UP 06/23/2022 Visit Diagnosis Plan: Hypothyroidism [...] I10 05/25/2022 Appointment[facility] [phone] [phone] [facility] 05/25/2022 Patient Education: losartan- [employer] Coupon [id number] [email or web address]/resources/getResource/61/[email or web address] Completed 05/25/2022 Visit Diagnosis Plan: Essential hypertension [...] E03.9 03/19/2022 Appointment: Con[facility] Poole [facility]el[facility] [phone] [phone] FO[facility] UP 03/19/2022 Visit Diagnosis Plan: COPD exacerbation Discussion: Co ntinue budesonide/performomist and use albuterol prn as rescue Go for COVID booster Flu shot in March Fwup 1month ICD-9 : 491.21 ICD-10 : J44.1 02/16/2022 Appointment: Cony Poole WPtel: [phone] [phone] FOLLOW UP 02/16/2022 Visit Diagnosis Plan: COPD exacerbation Discussion: Co ntinue breztri 2p BID and albuterol prn Will switch to Nebulizer with Budesonide 0.5mg BID and Perforomist 20mcg BID with duoneb q4hrs prn Fwup 2 weeks unless worsening ICD-9 : 491.21 ICD-10 : J44.1 2022 Appointment: Cony Poole WPtel: [phone] [phone] FOLLOW UP 2022 Visit Diagnosis Plan: [...] J44.0 01/27/2022 Appointment: Keeley Johnson WPtel: [phone] [phone] ACUTE ILLNESS 01/27/2022 Patient Education: Patient Medication Summary Completed 01/27/2022 Referral: Soy Rodriguez WPtel: [facility] [address] [place] [address] [address] [id number] [place] 09/30 - for office Completed 10/29/2021 [...] 244.9 ICD-10 : E03.9 10/28/2021 Appointment: Cony Poloe WPtel: [address] [place], [place] [phone] US FOLLOW UP 10/28/2021 Visit Diagnosis Plan: [...] : R06.00 09/23/2021 Appointment: Cony Poole WPtel: [address] [place], [place] [phone] US FOLLOW UP 09/23/2021 Appointment: Cony Poole WPtel: [address] [place], [place] [phone] US CANCELED 09/08/2021 Visit Diagnosis Plan: Essential [...] : I87.2 08/21/2021 Appointment: Cony Poole WPtel: [address] [place], [place] [phone] US FOLLOW UP 08/21/2021 Appointment: Keeley Johnson WPtel: [phone] [phone] US CANCELED 08/12/2021 Visit Diagnosis Plan: Essential (primary) hypertension Discussion: Stable ICD-9 : 401.9 ICD-10 : I10 07/30/2021 Visit Diagnosis Plan: Atrial fibrillation Discussion: On cardizem and eliquis and rate controlled and asympotomatic Sees Dr Lopez in 2 weeks ICD-9 : 427.31 ICD-10 : I48.91 07/30/2021 Appointment: Cony Poole WPtel: [address] [place], [place] [phone] US FOLLOW UP 07/30/2021 Appointment: Cony Poole WPtel: [address] [place], [place] [phone] [place] due to weather CANCELED 07/24/2021 Visit [...] : J45.909 06/19/2021 Appointment: Cony Poole WPtel: [address] [place], [place] [phone] FOLLOW UP 06/19/2021 Appointment: Cony Poole WPtel: [address] [place], [place] [phone] US seen 05/08/21 at 1 pm by doctor as appt opened up CANCELED 05/14/2021 Appointment: Cony Poole WPtel: [address] [place], [place] [phone] UA 05/12/2021 Visit Diagnosis Plan: Recurrent UTI [...] : R60.0 05/08/2021 Appointment: Cony Poole WPtel: [address] [place], [place] [phone] ACUTE ILLNESS 05/08/2021 Visit Diagnosis Plan: Cervical radiculopathy Discussio n: Start PT ICD-9 : 723.4 ICD-10 : M54.12 04/28/2021 Visit Diagnosis Plan: Stress and adjustment reaction D iscussion: Stress Reducers Discussed Discussion: Stress Reducers Discussed meds ICD-9 : 309.89 ICD-10 : F43.29 04/28/2021 Appointment: Cony Poole WPtel: [address] [place] [phone] ACUTE ILLNESS 04/28/2021 Appointment: Cony Poole WPtel: [address] [place], [place] [phone] US RESCHEDULED 03/25/2021 Visit Diagnosis Plan: Other fatigue Discussion: Will r echeck thyroid labs as previously scheduled, B12, and ferritin level per Dr. Brown- discussed could be causing fatigue. Will f/u after labs or sooner for worsening/concerns. ICD-9 : 780.79 ICD-10 : R53.83 03/19/2021 Appointment: Keeley Johnson WPtel: [phone] [phone] ACUTE ILLNESS 03/19/2021 Patient Education: Patient Medication Summary Completed 03/19/2021 Appointment: Cony Poole WPtel: [address] [place], [place] [phone] US INJECTION 02/27/2021 Visit Diagnosis Plan: Essential [...] : I48.91 02/06/2021 Appointment: Cony Poole WPtel: [address] [place], [place] [phone] ACUTE ILLNESS 02/06/2021 Care Plan: US EXAM OF HEAD AND NECK LOIN C : 37854-5 Pending 02/06/2021 Care Plan: DXA BONE DENSITY AXIAL LOINC : 66736-2 Pending 02/06/2021 Appointment: Keeley Johnson WPtel: [phone] [phone] US CANCELED 12/24/2020 Visit Diagnosis Plan: Skin lesion of right leg Discuss ion: Appears to be healing- is smaller, no s/s of infection. Will f/u if does not improve or worsens. ICD-9 : 709.9 ICD-10 : L98.9 12/20/2020 Appointment: Keeley Johnson WPtel: [phone] [phone] OFFICE SURGERY 12/20/2020 Patient Education: Patient Medication Summary Completed 12/20/2020 Visit Diagnosis Plan: Nontraumatic blister of skin Dis cussion: Small isolated lesion, no s/s of infection. Bandaid and neosporin applied. 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 F/U for worsening/concerns or if more lesions appear. ICD-9 : 709.8 ICD-10 : R23.8 12/11/2020 Appointment: Keeley Johnson WPtel: [phone] [phone] ACUTE ILLNESS 12/11/2020 Patient Education: Patient Medication [...] R35.1 11/11/2020 Appointment: Cony Poole WPtel: [phone] [phone] ACUTE ILLNESS 11/11/2020 Appointment: Cony Poole WPtel: [phone] [phone] CANCELED 11/11/2020 Visit Diagnosis Plan: Inflamed seborrheic keratosis Di scussion: Cryotherapy as above ICD-9 : 702.11 ICD-10 : L82.0 09/05/2020 Appointment: Cony Poole WPtel: [facility]6 [phone] ACUTE ILLNESS 09/05/2020 Visit Diagnosis Plan: Essential hypertension Discussio n: Stable ICD-9 : 401.9 ICD-10 : I10 07/29/2020 Visit Diagnosis Plan: Paroxysmal atrial fibrillation D iscussion: On eliquis ICD-9 : 427.31 ICD-10 : I48.0 07/29/2020 Visit Diagnosis Plan: Hypothyroidism Discussion: Lab d iscussed Will recheck lab in 2mos ICD-9 : 244.9 ICD-10 : E03.9 07/29/2020 Appointment: Cony Poole WPtel: [address] [place], [place] [phone] FOLLOW UP 07/29/2020 Visit Diagnosis Plan: Dizziness and giddiness Discussi on: Continue increased dose of Cardizem ER 120mg po BID and monitor BP/pulse Has LINQ device in place Discussed Kardia EKG Follow Up: 1 months ICD-9 : 780.4 ICD-10 : R42 06/24/2020 Appointment: Cony Poole WPtel: [facility]9 [phone] Hospital Follow Up 06/24/2020 Visit Diagnosis [...] : R53.1 06/21/2020 Appointment: Apoorva Rueda [address] [employer] [facility] TELEMEDICINE 06/21/2020 Visit Diagnosis Plan: URI (upper [...] : J06.9 03/19/2020 Appointment: Apoorva Rueda [address] [employer] [facility] TELEMEDICINE 03/19/2020 Visit Diagnosis Plan: Atrial fibrillation [...] I10 02/29/2020 Appointment: Cony Poole WPtel: [phone] [phone] FOLLOW UP 02/29/2020 Care Plan: CT [...] : I87.2 02/22/2020 Appointment: Mohit, Apoorva R. [address] [place], [place] [phone] ACUTE ILLNESS 02/22/2020 Appointment: Cony Poole WPtel: [address] [place], [place] [address] 02/20/2020 Visit Diagnosis Plan: Urinary tract infection Discussi on: based on patient's age and length of illness, clinical s/s, will give 1 gm rocephin in office. urine sent for culture. push fluids and call office with new or worsening symptoms. ICD-9 : 599.0 ICD-10 : N39.0 02/13/2020 Appointment: Apoorva Rueda [address] [place], [place] [phone] AC[facility] 02/13/2020 Visit Diagnosis Plan: Neck pain Discussion: Daily stre tches Moist heat Topical muscle rub Can use baclofen 1/2 tab during day and full tab at night ICD-9 : 723.1 ICD-10 : M54.2 2020 Appointment: Cony Poole WPtel: [address] [place], [place] [address] ACUTE ILLNESS 2020 Visit Diagnosis Plan: Atrial [...] : M25.531 01/22/2020 Appointment: Cony Poole WPtel: [address] [place], [place] [phone] FOLLOW UP 01/22/2020 Visit Diagnosis Plan: Paroxysmal atrial fibrillation D iscussion: Stable with new meds Follow Up: 1 months ICD-9 : 427.31 ICD-10 : I48.0 12/26/2019 Visit Diagnosis Plan: Essential hypertension Discussio n: Stable ICD-9 : 401.9 ICD-10 : I10 12/26/2019 Appointment: Cony Poole WPtel: [phone] [place], [place] [phone] Hospital Follow Up 12/26/2019 Appointment: Cony Poole WPtel: [phone] [phone] US CANCELED 12/25/2019 Visit Diagnosis Plan: [...] : I50.9 11/27/2019 Appointment: Apoorva Rueda [address] [place], [place] [phone] FOLLOW UP 11/27/2019 Visit Diagnosis Plan: Hypotension Discussion: Decrease amlodopine to once daily Monitor home BP/pulse and report readings in 2 weeks ICD-9 : 458.9 ICD-10 : I95.9 11/09/2019 Visit Diagnosis Plan: Urinary tract infection Discussi on: Cefdinir Culture urine ICD-9 : 599.0 ICD-10 : N39.0 11/09/2019 Appointment: Apoorva Rueda 504 [facility] CANCELED 11/09/2019 Appointment: Cony Poole WPtel: [phone] [phone] ACUTE ILLNESS 11/09/2019 Patient Education: cefdinir- [employer] Coupon [id number] [email or web address]/[email or web address] Completed 11/09/2019 Visit Diagnosis Plan: Left leg swelling Discussion: St at LLE doppler now ICD-9 : 729.81 ICD-10 : M79.89 10/10/2019 Appointment: Cony Poole WPtel: [address] [place] [address] ACUTE ILLNESS 10/10/2019 Visit Diagnosis Plan: Muscle spasm Discussion: Can use tylenol 325mg po TID Topical muscle rub Baclofen 10mg 1/2-1 po q HS for spasm but hold temazepam while taking Notify if worsening or persists Stretches/Moist Heat ICD-9 : 728.85 ICD-10 : M62.838 08/25/2019 Appointment: Cony Poole WPtel: [address] [place] [address] TELEMEDICINE 08/25/2019 Patient Education: baclofen- [employer] Coupon [id number] [email or web address] [employer].com/samplemd/resources/getResource/61/[email or web address] Completed 08/25/2019 Visit Diagnosis Plan: Low back pain Discussion: Check L/S spine x-rays ICD-9 : 724.2 ICD-10 : M54.5 07/13/2019 Visit Diagnosis Plan: Sciatica of left side Discussion : Will likely start with PT pending x-ray results ICD-9 : 724.3 ICD-10 : M54.32 07/13/2019 Appointment: Cony Poole WPtel: [address] [place], [place] [address] ACUTE ILLNESS 07/13/2019 Care Plan: X-RAY EXAM L-S SPINE 2/3 VWS LOINC : 91125-3 Pending 07/13/2019 Visit Diagnosis Plan: Pneumonia due to infectious orga nism Discussion: Repeat rocephin 1gm IM today Start cefdinir tomorrow To ER this weekend if worsens ICD-9 : 486 ICD-10 : J18.9 05/18/2019 Appointment: Cony Poole WPtel: [address] [place], [place] [phone] US FOLLOW UP 05/18/2019 Patient Education: cefdinir- [employer] Coupon [id number] https://www.iCrederity/Whole Optics/resources/getResource/61/1x14h68t-72t6-03c1-x5 Completed 05/18/2019 Patient Education: temazepam- [employer] Coupon [id number] https://www.iCrederity/Whole [employer]/resources/getResource/61/gm9f16zm-3622-1tw4-6p Completed 05/18/2019 Patient Education: Synthroid- [employer] Coupon [id number] https://www.iCrederity/Whole [employer]/resources/getResource/61/29192erv-qn73-8f02-16 Completed 05/18/2019 Patient Education: Cytomel- [employer] Coupon [id number] https://www.iCrederity/Whole [employer]/resources/getResource/61/na30gy16-333x-537s-y7 Completed 05/18/2019 Visit Diagnosis Plan: Pneumonia due to infectious orga nism Discussion: Rocephin 1gm IM now Recheck tomorrow ICD-9 : 486 ICD-10 : J18.9 05/17/2019 Appointment: Cony Poole WPtel: [address] [place], [place] [phone] US FOLLOW UP 05/17/2019 Appointment: Cony Poole WPtel: [address] [place], [place] [phone] 05/10/19 1630---see note in chart related to throat culture (km) CANCELED 05/10/2019 Appointment: Cony Poole WPtel: [address] [place] [address] 05/08/2019 Appointment: Cony Poole WPtel: [address] [place], [place] [address] NURSE SERVICES 05/08/2019 Visit Diagnosis Plan: Stomatitis [...] : N39.0 04/24/2019 Appointment: Cony Poole WPtel: [address] [place] [address] FOLLOW UP 04/24/2019 Patient Education: nystatin- [employer] Coupon [id number] https://www.iCrederity/Whole [employer]/resources/getResource/61/x129140j-x935-8t8w-y4 Completed 04/24/2019 Appointment: Cony Poole WPtel: [address] [place], [place] [address] [facility] 04/21/2019 Visit Diagnosis Plan: Stomatitis and mucositis with ch bry of taste Discussion: Diflucan and nystatin susp Discussed oral biopsy ICD-9 : 528.00 ICD-10 : K12.1 04/10/2019 Appointment: Cony Poole WPtel: [address] [place], [place] [address] ACUTE ILLNESS 04/10/2019 Patient Education: nystatin- [employer] Coupon [id number] https://www.iCrederity/Whole [employer]/resources/getResource/61/9jhunw59-25j2-5098-ea Completed 04/10/2019 Appointment: Cony Poole WPtel: [address] [place], [place] [phone] US INJECTION 03/02/2019 Patient Education: INFLUENZA VACCINE [...] : R35.1 02/16/2019 Appointment: Cony Poole WPtel: [address] [place] [address] ACUTE ILLNESS 02/16/2019 Appointment: Cony Poole WPtel: [address] [place], [place] [phone] NO SHOW - FORGIVEN 02/15/2019 Appointment: Cony Poole WPtel: [address] [place], [place] [address] BP CHECK 01/24/2019 Visit Diagnosis Plan: Acute upper respiratory infectio n, unspecified Discussion: cefdinir bid for 7 days. instructed to continue with allergy medications daily. call or rtc with new or worsening symptoms. ICD-9 : 465.9 ICD-10 : J06.9 12/20/2018 Appointment: Apoorva Rueda [address] [place], [place] [address]a [address] ACUTE ILLNESS 12/20/2018 Visit Diagnosis Plan: Impacted cerumen, right ear Disc ussion: ear canal cleaned out with lavage. patient tolerated well and had immediate relief of hearing loss. no issues voiced. ICD-9 : 380.4 ICD-10 : H61.21 12/14/2018 Appointment: Apoorva Rueda [address] [place], [place] [id number] ACUTE ILLNESS 12/14/2018 Visit Diagnosis Plan: Essential [...] : I48.0 12/12/2018 Appointment: Cony Poole WPtel: [address] [place], [place] [address] US FOLLOW UP 12/12/2018 Visit Diagnosis Plan: Essential (primary) hypertension Discussion: Stable Patient sees cardiology next week--has been off sotalol since 09/15/18 and BP and pulse have been stable ICD-9 : 401.9 ICD-10 : I10 10/19/2018 Appointment: Cony Poole WPtel: [address] [place], [place] [phone] FOLLOW UP 10/19/2018 Appointment: Cony Poole WPtel: [address] [place] [phone] US BP CHECK 10/13/2018 Visit Diagnosis Plan: Allergic rhinitis due to pollen Discussion: Continue zyrtec ICD-9 : 477.9 ICD-10 : J30.1 10/05/2018 Visit Diagnosis Plan: Essential (primary) hypertension Discussion: Stable Recheck 2 weeks ICD-9 : 401.9 ICD-10 : I10 10/05/2018 Appointment: Cony Poole WPtel: [address] [place] [phone] US FOLLOW UP 10/05/2018 Patient Education: Synthroid- [employer] Coupon [id number] https://www.iCrederity/sampleFloorball Gear/resources/getResource/61/sdk17223-c387-1307-79 Completed 10/05/2018 Visit Diagnosis Plan: Allergic rhinitis due to pollen Discussion: Continue zyrtec Finish prednisone ICD-9 : 477.9 ICD-10 : J30.1 09/28/2018 Visit Diagnosis Plan: Hematuria, unspecified Discussio n: Recheck UA with microscopy in 1 week then fwup ICD-9 : 599.70 ICD-10 : R31.9 09/28/2018 Appointment: Cony Poole WPtel: [phone] US FOLLOW UP 09/28/2018 Visit Diagnosis [...] : K59.01 09/26/2018 Appointment: Cony Poole WPtel: [phone] US FOLLOW UP 09/26/2018 Visit Diagnosis [...] ICD-10 : J20.9 09/23/2018 Appointment: Merry Diaz [facility] [address] FOLLOW UP 09/23/2018 Patient Education: cefdinir- [employer] Coupon [id number] https://www.Whole Optics.Cont3nt.com/samplemd/resources/getResource/61/[email or web address]-[email or web address]-o3 Completed 09/23/2018 Visit Diagnosis Plan: Acute bronchitis, unspecified Di scussion: Rocephin today Go for CXR Flu negative Recheck tomorrow ICD-9 : 466.0 ICD-10 : J20.9 09/22/2018 Appointment: Cony Poole WPtel: [address] [place], [place] [phone] FOLLOW UP 09/22/2018 Visit Diagnosis Plan: Tachycardia, [...] ICD-10 : R30.0 09/20/2018 Appointment: Merry Diaz [facility] [employer] [address] ACUTE ILLNESS 09/20/2018 Visit Diagnosis Plan: Other fatigue Discussion: Hold s otalol Add B12 500mcg daily as B12 in low normal range Fwup 1 week ICD-9 : 780.79 ICD-10 : R53.83 09/15/2018 Visit Diagnosis Plan: Hypothyroidism, unspecified Disc ussion: Decrease Synthroid to 50mcg daily ICD-9 : 244.9 ICD-10 : E03.9 09/15/2018 Appointment: Cony Poole WPtel: [address] [place], [place] [phone] FOLLOW UP 09/15/2018 Appointment: Cony Poole WPtel: [address] [place] [phone] UA 09/14/2018 Visit Diagnosis Plan: Chronic fatigue, unspecified Dis cussion: I think her sotalol may be a big factor so will start with updated lab and if it is normal then will hold sotalol and fwup in 1 week ICD-9 : 780.79 ICD-10 : R53.82 09/08/2018 Appointment: Cony Poole WPtel: [facility] [address] ACUTE ILLNESS 09/08/2018 Visit Diagnosis Plan: Dysuria Discussion: UA- positive for leuks, hematuria, nitrates. Will start patient on Macrobid and culture urine. Will call patient with results of culture. RTC with worsening symptoms, including fever, increased pain, abdominal pain. Patient states understanding. ICD-9 : 788.1 ICD-10 : R30.0 09/05/2018 Appointment: Merry Diaz [address] ACUTE ILLNESS 09/05/2018 Care Plan: RML ASSAY THYROID STIM HORMONE Pending 05/26/2018 Care Plan: RML ASSAY OF FREE THYROXINE Pe nding 05/26/2018 Appointment: Cony Poole WPtel: [address] [place], [place] [phone] UA 04/20/2018 Appointment: Cony Poole WPtel: [address] [place], [place] [address] BP CHECK 04/13/2018 Visit Diagnosis Plan: Impacted cerumen, right ear Disc ussion: cerumen removed with irrigation and lavage. patient tolerated well and had immediate relief. ICD-9 : 380.4 ICD-10 : H61.21 03/18/2018 Appointment: Apoorva Rueda [address] ACUTE ILLNESS 03/18/2018 Patient Education: Patient [...] Appointment: Cony Poole WPtel: [phone] [id number] FOLLOW UP 03/03/2018 Patient Education: Patient Medication Summary Completed 03/03/2018 Visit Diagnosis Plan: Atopic dermatitis, unspecified D iscussion: instructed to apply triamcinolone bid for 2 weeks, until follow up. follow with your normal lotion and cover with compression hose. if worsening or no improvement, call clinic. ICD-9 : 691.8 ICD-10 : L20.9 02/16/2018 Appointment: Apoorva Rueda [address] [place] [address] ACUTE ILLNESS 02/16/2018 Patient Education: Patient Medication [...] ICD-10 : L89.611 01/26/2018 Appointment: Apoorva Rueda [address] [place] [address] ACUTE ILLNESS 01/26/2018 Patient Education: Patient Medication [...] I10 11/30/2017 Appointment: Cony Poole WPtel: [address] [phone] FOLLOW UP 11/30/2017 Patient Education: Patient Medication Summary Completed 11/30/2017 Visit Diagnosis Plan: Other seborrheic keratosis Discu ssion: Monitor ICD-9 : 702.19 ICD-10 : L82.1 11/04/2017 Appointment: Cony Poole WPtel: [phone] US Consult 11/04/2017 Patient Education: Patient Medication Summary Completed 11/04/2017 Visit Diagnosis Plan: Achilles tendinitis, right leg D iscussion: educated patient on RICE and the importance of performing all these activities. 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 to assist [...] ICD-10 : M76.61 10/20/2017 Appointment: Apoorva Rueda [address] [place] [address] ACUTE ILLNESS 10/20/2017 Patient Education: Patient Medication Summary Completed 10/20/2017 Visit Diagnosis Plan: Essential (primary) hypertension Discussion: Stable ICD-9 : 401.9 ICD-10 : I10 08/30/2017 Visit Diagnosis Plan: Weakness Discussion: Check Cervi gerri spine x-ray due to primarily being in upper arms ICD-9 : 780.79 ICD-10 : R53.1 08/30/2017 Appointment: Cony Poole WPtel: [facility]0 [phone] FOLLOW UP 08/30/2017 Patient Education: Patient Medication Summary Completed 08/30/2017 Care Plan: X-RAY EXAM NECK SPINE 4/5VWS LOINC : 09258-8 Pending 08/30/2017 Patient Education: Patient Medication Summary Completed 08/13/2017 Care Plan: DXA BONE DENSITY AXIAL LOINC : 18307-9 Pending 08/13/2017 Patient Education: Patient Medication Summary Completed 07/01/2017 Care Plan: RML COMPREHEN METABOLIC PANEL LOINC : 25506-3 Pending 07/01/2017 Care Plan: RML ASSAY THYROID STIM HORMONE Pending 07/01/2017 Care Plan: RML ASSAY OF FREE THYROXINE Pe nding 07/01/2017 Care Plan: RML LIPID PANEL LOINC : 87476 -1 Pending 07/01/2017 Care Plan: CBC Pending [...] E03.9 05/25/2017 [facility]ment[phone] [facility] 05/25/2017 Patient Education: [...] I10 03/22/2017 Appointment: [facility]Ptel[phone] [phone] [facility] FOLLOW UP 03/22/2017 Patient Education: Patient Medication Summary Completed 03/22/2017 Patient Education: Patient Medication Summary Completed 03/17/2017 Care Plan: RML ASSAY THYROID STIM HORMONE Pending 03/17/2017 Care Plan: RML ASSAY OF FREE THYROXINE Pe nding 03/17/2017 Care Plan: METABOLIC PANEL TOTAL CA LOIN C : 63266-8 Pending 03/17/2017 Appointment: Cony Poole WPtel: [address] [place], [place] [phone] US INJECTION 03/08/2017 Patient Education: Patient Medication Summary Completed 03/08/2017 Visit Diagnosis Plan: Hypothyroidism, unspecified Disc ussion: Increase synthroid to 75mcg daily and recheck 2mos Follow Up: 2 months ICD-9 : 244.9 ICD-10 : E03.9 01/18/2017 Visit Diagnosis Plan: Essential (primary) hypertension Discussion: Stable with current meds ICD-9 : 401.9 ICD-10 : I10 01/18/2017 Appointment: Cony Poole WPtel: [address] [place], [place] [phone] US 01/14lm~sl FOLLOW UP 01/18/2017 Patient Education: Patient Medication Summary Completed 01/18/2017 Appointment: Cony Poole WPtel: [address] [place], [place] [phone] BP CHECK 01/11/2017 Patient Education: Patient Medication Summary Completed 01/11/2017 Patient Education: Patient Medication Summary Completed 01/11/2017 Care Plan: RML ASSAY THYROID STIM HORMONE Pending 01/11/2017 Care Plan: RML ASSAY OF FREE THYROXINE Pe nding 01/11/2017 Appointment: Cony Poole WPtel: [address] [place], [place] [phone] US BP CHECK 01/04/2017 Patient Education: Patient Medication Summary Completed 01/04/2017 Appointment: Cony Poole WPtel: [address] [place], [place] [phone] US BP CHECK 12/28/2016 Patient Education: Patient Medication Summary Completed 12/28/2016 Appointment: Cony Poole WPtel: [address] [place], [place] [phone] BP CHECK 12/24/2016 Patient Education: Patient Medication Summary Completed 12/24/2016 Visit Diagnosis Plan: Hypotension, unspecified Discuss ion: Tashi fuentes Decrease HCTZ to 12.5mg q AM BP check in 1 week ICD-9 : 458.9 ICD-10 : I95.9 12/16/2016 Visit Diagnosis Plan: Localized edema Discussion: Decr ease HCTZ to 12.5mg q AM ICD-9 : 782.3 ICD-10 : R60.0 12/16/2016 Appointment: Cony Poole WPtel: [facility]8 [phone] ACUTE ILLNESS 12/16/2016 Patient Education: Patient [...] : E03.9 11/18/2016 Appointment: Cony Poole WPtel: [phone] 11/17 lm ~sl 11/18 confirmed~sl FOLLOW [...] : E03.9 11/04/2016 Appointment: Cony Poole WPtel: [address] [place], [place] [phone] 11/03 confirmed `sl FOLLOW UP 11/04/2016 Patient Education: Patient Medication Summary Completed 11/04/2016 Visit Diagnosis Plan: Hypotension due to drugs Discuss ion: Hydrate Hold Losartan tonight then decrease to 50mg q HS BP check in 1 week ICD-9 : 458.8 ICD-10 : I95.2 10/27/2016 Appointment: Cony Poole WPtel: [address] [place], [place] [phone] 10/26 Confirmed~sl FOLLOW UP 10/27/2016 Patient Education: Patient Medication Summary Completed 10/27/2016 Appointment: Cony Poole WPtel: [address] [place], [place] [phone] UA 10/26/2016 Patient Education: Patient Medication Summary Completed 10/26/2016 Visit Diagnosis Plan: Cellulitis of left lower limb Di scussion: Finish Clindamycin Follow Up: 2 weeks ICD-9 : 682.6 ICD-10 : L03.116 10/13/2016 Appointment: Cony Poole WPtel: [address] [place], [place] [phone] 10/12 lm-sp WORK IN 10/13/2016 Patient Education: Patient Medication Summary Completed 10/13/2016 Visit Diagnosis Plan: Cellulitis of left lower limb Di scussion: Change keflex to clindamycin Add prednisone Continue compression socks and elevate ICD-9 : 682.6 ICD-10 : L03.116 10/08/2016 Appointment: Cony Poole WPtel: [phone] 10/07 lm~sl 10/08 confirmed`sl FOLLOW [...] L03.116 10/05/2016 Appointment: [facility]Ptel[phone] [phone] 10/01 confirmed `sl FOLLOW UP 10/05/2016 [...] METABOLIC PANEL TOTAL CA LOIN C : 06650-3 Pending 09/30/2016 Visit Diagnosis Plan: Other fatigue [...] I10 08/25/2016 Appointment: Con[facility] Poole [facility]Ptel[phone] [phone] 08/24 confirmed~sl FOLLOW UP 08/25/2016 Patient Education: Patient Medication Summary Completed 08/25/2016 Appointment: Cony Poole [facility]Ptel[facility] [phone] [id number] 07/30 rescheduled~sl RESCHEDULED 08/19/2016 Patient Education: Patient Medication Summary Completed 08/19/2016 Care Plan: RML COMPREHEN METABOLIC PANEL LOINC : 80941-2 Pending 08/19/2016 Care Plan: CBC Pending 08/19/2016 [...] : I10 07/28/2016 Appointment: Cony Poole WPtel: [address] [place], [place] [phone] [place] [address] 07/27 confirmed~sl ACUTE ILLNESS 07/28/2016 Patient Education: Patient Medication Summary Completed 07/28/2016 Patient Education: Patient Medication Summary Completed 07/06/2016 Care Plan: RML ASSAY THYROID STIM HORMONE Pending 07/06/2016 Care Plan: RML ASSAY OF FREE THYROXINE Pe nding 07/06/2016 Appointment: Cony Poole WPtel: [address] [place], [place] [phone] BP CHECK 06/25/2016 Patient Education: Patient Medication Summary Completed 06/25/2016 Patient Education: Patient Medication Summary Completed 06/25/2016 Care Plan: CBC Pending 06/25/2016 Care Plan: URINALYSIS AUTO W/[place] : 75099-2 Pending 06/25/2016 Visit Diagnosis Plan: Essential (primary) hypertension Discussion: Discussed with Dr Poole Increase HCTZ as above Check CMP in 1-2 weeks Patient to call Dr Noble for follow up with him, 1-2 weeks and management of her HTN ICD-9 : 401.9 ICD-10 : I10 06/23/2016 Appointment: Merle Hernandez [address] [place] [address] ACUTE ILLNESS 06/23/2016 Patient Education: Patient Medication [...] plan and agrees 06/03/2016 Appointment: Merle Hernandez [address] [place] [address] ACUTE ILLNESS 06/03/2016 Patient Education: Patient Medication Summary Completed 06/03/2016 Visit Plan: Exam is fairly benign Flu ra n since her symptoms had such a sudden onset - results negative Likely viral URI Supportive care reviewed Monitor closely Follow up PRN 05/26/2016 Appointment: Merle Hernandez [address] [place], [place] [phone] ACUTE ILLNESS 05/26/2016 Patient Education: Patient Medication Summary Completed 05/26/2016 Visit Plan: Continue current meds and mo nitor BP Continue temazepam at current dose--discussed risks but patient feels much better since getting good rest Check CBC, CMP, TSH, Free T4 05/20/2016 Appointment: Cony Poole WPtel: [address] [place], [place] [phone] 05/19 confirmed~sl FOLLOW UP 05/20/2016 Patient Education: Patient Medication Summary Completed 05/20/2016 Appointment: Cony Poole WPtel: [facility]6 [phone] US CANCELED 04/07/2016 Visit Plan: Check right ankle x-ray Disc ussed may need veins in right ankle worked on if swelling/pain persist 03/19/2016 Appointment: Cony Pooletel: [address] [place], [place] [phone] ACUTE ILLNESS 03/19/2016 Patient Education: Patient Medication Summary Completed 03/19/2016 Visit Plan: Increase HCTZ to 12.5mg po e very day Recheck Chem [address] Noble next week to discuss antiarrhythmic meds Prevnar 13 today 01/13/2016 Appointment: Cony Pooletel: [address] [place], [place] [phone] 01/08 confirmed-sp FOLLOW UP 01/13/2016 Patient Education: Patient Medication Summary Completed 01/13/2016 Visit Plan: Continue current meds and mo nitor BP Check Chem 7 12/12/2015 Appointment: Cony Poole WPtel: [address] [place], [place] [phone] /6confirmed sl FOLLOW UP 12/12/2015 Patient Education: Patient Medication Summary Completed 12/12/2015 Appointment: Cony Poole WPtel: [address] [place], [place] [phone] RESCHEDULED 12/10/2015 Visit Plan: Add Restoril 15mg q HS--stuart ent used in hospital with no complications Add back low dose HCTZ at 12.5mg every other day Monitor BP Can hold on nebulizer treatments Check Chem 7 now and recheck 1week 12/05/2015 Appointment: Cony Poole WPtel: [address] [place], [place] [phone] 12/02 confirmed~sl ER Follow UP 12/05/2015 Patient Education: Patient Medication Summary Completed 12/05/2015 Appointment: Cony Poole WPtel: [address] [place], [place] [phone] WORK IN 11/28/2015 Visit Plan: Due to patient's symptoms an d high blood pressure I consulted . Outpatient orders written for 1L IV fluids with 1G Rocephin and Zofran for nausea. Patient sent to hospital and followup in am. 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 Keep BP log and follow up PRN 10/21/2015 Appointment: [facility] [facility] 10/21/2015 Patient Education: Patient Medication Summary Completed 10/21/2015 Visit Plan: Stop amlodopine Increase met oprolol to to 50mg q HS and 25mg in AM Switch cozaar to 100mg daily as the insurance does not want to pay for 50mg BID dosing Low Na diet and elevate legs See Cardiology 10/17/2015 Appointment: Cony Poole WPtel: [phone] [phone] 5/11confirm~sl FOLLOW UP 10/17/2015 Patient Education: Patient Medication Summary Completed 10/17/2015 Visit Plan: Pt to bring in home BP/HR lo g for review Orders given for CBC, CMP, TSH, MG and 48 holter for further evaluation 10/07/2015 Appointment: Merle Hernandez [address] [place] [address] ACUTE ILLNESS 10/07/2015 Patient Education: Patient Medication Summary Completed 10/07/2015 Visit Plan: Cold vs Allergies Continue z yrtec and nasacort Add steroid pack as above Add plain mucinex, nasal rinses, vicks, humidifier, etc Call if not improving or if worsening - will likely add zpak 09/03/2015 Appointment: Merle Hernandez [address] [place], [place] [phone] ACUTE ILLNESS 09/03/2015 Patient Education: Patient Medication Summary Completed 09/03/2015 Visit Plan: BP values reviewed Change me toprolol to 12.5mg po BID BP values in 1month 08/01/2015 Appointment: Cony Poole WPtel: [address] [place], [place] [phone] 07/31 confirmed-SP FOLLOW UP 08/01/2015 Patient Education: Patient Medication Summary Completed 08/01/2015 Visit Plan: Had lab in the fall--shanelle jennifer ain copy and plan on repeat lab 6mos from last lab then fwup after that Continue current meds Mammogram up-to-date 06/27/2015 Appointment: Cony Poole WPtel: [address] [place], [place] [phone] 06/26/15 appt confirmed cn NEW PATIENT 06/27 Patient Education: Patient Medication Summary Completed 06/27/2015 Referral: Donald Noble WPtel: [facility] [address] [id number] US Referral Initiated Instructions Comment Date . [...] . 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
--- OUTSIDE RECORDS SUMMARY | 2022-11-09 15:29 | XMS REPORT | CCD ---
Author Author Tanna Poole D.O. Organization [facility] Address [address] [place] [phone] Phone Care Team Providers Care Geriatric Nurse Practitioner Name Role Phone Cony Poole D.O. PP Unavailable CCM Unavailable Summary Purpose Interface Exchange Insurance Providers Payer name Policy type / Coverage type Covered green party ID Effective Begin Date Effective End Date WPS MEDICARE PART B [place] Medicare Part B [id number] 2017 Unknown [facility] Medicare Part B [id number] Un known Family history Sister Diagnosis Age [...] Unknown Retired 06/27/[address]: 8598296 Former smoker quit 1986 06/27/[address]: 474377565 Never drinks alcohol 2015 Has the patient [...] Effexor XR 37.5 mg capsule,extended release RxNorm: 210984 Take 1 Capsule(s) Oral QPM for mood 10/01/2022 12/29/2022 Active losartan 50 mg tablet RxNorm: 738671 Take 1 Tablet(s) Oral two times a day 09/16/2022 03/14/2023 Active Synthroid 75 mcg tablet RxNorm: 380676 Take 1 Tablet(s) Oral MWF 11/25/2022 Active Synthroid 88 mcg tablet RxNorm: 492771 Take 1 Tablet(s) Oral QD Tu, Th, Sa, [place] 08/28/2022 11/25/2022 Active Synthroid 88 mcg tablet RxNorm: 644851 Take 1 Tablet(s) Oral QD Tu, Th, Sa, [place] 08/25/2022 08/25/2022 Inactive Synthroid 75 mcg tablet RxNorm: 445856 Take 1 Tablet(s) Oral MWF 08/25/2022 Inactive Synthroid 75 mcg tablet RxNorm: 768133 Take 1 Tablet(s) Oral MWF 08/24/2022 Inactive hydralazine 10 mg tablet RxNorm: 215326 Take 1 Tablet(s) Oral t wo times a day 07/28/2022 10/25/2022 Active metoprolol succinate ER 100 mg tablet,extended release 24 hr RxNorm: 240554 Take 1 Tablet(s) Oral QPM 07/28/2022 07/28/2022 Inactive Synthroid 88 mcg tablet RxNorm: 350554 Take 1 Tablet(s) Oral QD Wednesday-Wednesday07/28/2022 08/24/2022 Inactive Synthroid 75 mcg tablet RxNorm: 683034 Take 1 Tablet(s) Oral QA M Sat/Sun 07/28/2022 08/24/2022 Inactive losartan 50 mg tablet RxNorm: 395820 1 Tablet(s) Oral two times a day 07/28/2022 07/28/2022 Inactive Zithromax Z-Topher 250 mg tablet RxNorm: 759051 Take 2 Tab let(s) Oral QD x1 dose then 1 daily 07/14/2022 07/18/2022 Inactive losartan 50 mg tablet RxNorm: 021014 TAKE ONE TABLET BY MOUTH DAILY 07/14/2022 07/27/2022 Inactive Synthroid 88 mcg tablet RxNorm: 592291 Take 1 Tablet(s) Oral QD Wednesday-Wednesday06/23/2022 07/27/2022 Inactive Synthroid 75 mcg tablet RxNorm: 877470 Take 1 Tablet(s) Oral QA M Sat/Sun 06/23/2022 07/27/2022 Inactive Xarelto 15 mg tablet RxNorm: 1841398 Take 1 Tablet(s) Oral QD 06/0906/09/2022 Inactive atorvastatin 20 mg tablet RxNorm: 384914 Take 1 Tablet(s) Oral QD 0 06/09/2022 06/09/2022 Inactive metoprolol succinate ER 100 mg tablet,extended release 24 hr RxNorm: 628328 Take 1 Tablet(s) Oral QD 06/09/2022 06/09/2022 Inactive budesonide 0.5 mg/2 mL suspension for nebulization RxNorm: 3 94847 USE 1 VIAL IN NEBULIZER TWICE DAILY (RINSE MOUTH AFTER EACH TREATMENT) 05/29/2022 No Stop Date Active Perforomist 20 mcg/2 mL solution for nebulization RxNorm: 12 59799 USE 1 VIAL IN NEBULIZER TWICE DAILY (MORNING AND EVENING) 05/29/2022 No Stop Date Acti ve Perforomist 20 mcg/2 mL solution for nebulization RxNorm: 12 59534 USE 1 VIAL IN NEBULIZER TWICE DAILY - morning and evening 05/26/2022 05/26/2022 Inac tive Perforomist 20 mcg/2 mL solution for nebulization RxNorm: 12 60069 USE 1 VIAL IN NEBULIZER TWICE DAILY - morning and evening 05/26/2022 05/26/2022 Inac tive budesonide 0.5 mg/2 mL suspension for nebulization RxNorm: 3 60588 USE 1 VIAL IN NEBULIZER TWICE DAILY - rinse mouth after treatment 05/26/2022 05/26/20 Inactive albuterol sulfate 2.5 mg/3 mL (0.083 %) solution for n ebulization RxNorm: 065975 USE 1 VIAL IN NEBULIZER DAILY - for rescue 05/26/2022 05/26/2022 Inactive budesonide 0.5 mg/2 mL suspension for nebulization RxNorm: 3 95372 USE 1 VIAL IN NEBULIZER TWICE DAILY - rinse mouth after treatment 05/26/2022 05/26/20 22 Inactive budesonide 0.5 mg/2 mL suspension for nebulization RxNorm: 3 94918 USE 1 VIAL IN NEBULIZER TWICE DAILY - rinse mouth after treatment 05/26/2022 05/26/20 22 Inactive losartan 50 mg tablet RxNorm: 651723 Take 1 Tablet(s) Oral two times a day 05/25/2022 05/25/2022 Inactive Synthroid 88 mcg tablet RxNorm: 059293 Take 1 Tablet(s) Oral QD 03/202206/22/2022 Inactive Astepro Allergy 205.5 mcg (0.15 %) nasal spray RxNorm: 23467 84 Take 1 Ora Nasal two times a day in each nostril 03/19/2022 No Stop Date Active Perforomist 20 mcg/2 mL solution for nebulization RxNorm: 12 59859 USE 1 VIAL IN NEBULIZER TWICE DAILY - morning and evening 02/17/2022 02/17/2022 Inac tive Xarelto 15 mg tablet RxNorm: 5551556 Take 1 Tablet(s) Oral QD 02/1706/09/2022 Inactive budesonide 0.5 mg/2 mL suspension for nebulization RxNorm: 3 99465 USE 1 VIAL IN NEBULIZER TWICE DAILY - rinse mouth after treatment 02/05/2022 02/06/20 Inactive Perforomist 20 mcg/2 mL solution for nebulization RxNorm: 12 04503 USE 1 VIAL IN NEBULIZER TWICE DAILY - morning and evening 02/05/2022 02/05/2022 Inac tive albuterol sulfate 2.5 mg/3 mL (0.083 %) solution for n ebulization RxNorm: 271045 USE 1 VIAL IN NEBULIZER DAILY - for rescue 02/05/2022 02/05/2022 Inactive ipratropium bromide 0.02 % solution for inhalation RxNorm: 8 31375 USE 1 VIAL IN NEBULIZER EVERY 4 HOURS - and as needed 02/05/2022 02/16/2022 Inactive albuterol sulfate HFA 90 mcg/actuation aerosol inhaler RxNor m: 3498214 Take 2 Puff(s) Inhalation Q4H as needed as needed 01/27/2022 No Stop Date Activ e Synthroid 88 mcg tablet RxNorm: 033797 Take 1 Tablet(s) Oral QD 01/26/2022 Inactive BRAND NAME ONLY losartan 50 mg tablet RxNorm: 001110 TAKE ONE TABLET BY MOUTH DAILY , REPLACES 25MG DOSE 01/15/2022 07/13/2022 Inactive Symbicort 160 mcg-4.5 mcg/actuation HFA aerosol inhaler RxNo rm: 3223766 2 Puff(s) Inhalation two times a day 10/30/2021 11/28/2021 Inactive Symbicort 160 mcg-4.5 mcg/actuation HFA aerosol inhaler RxNo rm: 4556524 2 Puff(s) Inhalation two times a day 10/30/2021 10/30/2021 Inactive Synthroid 88 mcg tablet RxNorm: 447398 Take 1 Tablet(s) Oral QD 10/29/2021 Inactive Breo Ellipta 200 mcg-25 mcg/dose powder for inhalation RxNor m: 2002678 Inhale 1 Puff(s) Inhalation QD 10/29/2021 10/29/2021 Inactive Breo Ellipta 200 mcg-25 mcg/dose powder for inhalation RxNor m: 5531254 Inhale 1 Puff(s) Inhalation QD 10/29/2021 10/29/2021 Inactive replaces a dvair Flonase Allergy Relief 50 mcg/actuation nasal spray,suspensi on RxNorm: 3080128 2 Ora Nasal every night at bedtime 10/28/2021 10/28/2021 Inactive Synthroid 88 mcg tablet RxNorm: 715776 Take 1 Tablet(s) Oral QD 10/28/2021 Inactive BRAND NAME ONLY fluticasone 113 mcg-salmeterol 14 mcg/actuation breath activated powdr RxNorm: 5300221 Inhale 1 Puff(s) Inhalation QAM 10/28/2021 10/28/2021 Inactive losartan 50 mg tablet RxNorm: 655249 1 Tablet(s) Oral QD replac es 25mg dose 10/20/2021 10/20/2021 Inactive metoprolol succinate ER 100 mg tablet,extended release 24 hr RxNorm: 160699 1 Tablet(s) Oral QD 09/23/2021 06/09/2022 Inactive potassium chloride ER 8 mEq capsule,extended release RxNorm: 110266 Take 1 Capsule(s) Oral QOD with lasix 09/15/2021 03/18/2022 Inactive Synthroid 88 mcg tablet RxNorm: 705295 Take 1 Tablet(s) Oral QD 12/202110/27/2021 Inactive BRAND NAME ONLY potassium chloride ER 8 mEq capsule,extended release RxNorm: 548245 1 Capsule(s) Oral QOD with lasix 09/11/2021 09/11/2021 Inactive metoprolol succinate ER 100 mg tablet,extended release 24 hr RxNorm: 616153 Take 1/2 Tablet(s) Oral QD 08/21/2021 09/22/2021 Inactive Synthroid 88 mcg tablet RxNorm: 800416 Take 1 Tablet(s) Oral QD 07/23/2021 Inactive BRAND NAME ONLY clindamycin HCl 300 mg capsule RxNorm: 365158 Take 1 Ca psule(s) Oral three times a day 07/03/2021 07/09/2021 Inactive clindamycin HCl 300 mg capsule RxNorm: 006329 Take 1 Ca psule(s) Oral three times a day 07/03/2021 07/03/2021 Inactive Synthroid 88 mcg tablet RxNorm: 538536 Take 1 Tablet(s) Oral QD 07/03/2021 Inactive BRAND NAME ONLY0 potassium chloride ER 8 mEq capsule,extended release RxNorm: 949524 1 Capsule(s) Oral QOD with lasix 06/26/2021 09/11/2021 Inactive potassium chloride ER 8 mEq tablet,extended release RxNorm: 560323 Take 2 Tablet(s) Oral two times a day 06/23/2021 06/25/2021 Inactive atorvastatin 20 mg tablet RxNorm: 498037 Take 1 Tablet(s) Oral QD 0 06/19/2021 06/09/2022 Inactive diltiazem CD 300 mg capsule,extended release 24 hr RxNorm: 8 79596 Take 1 Capsule(s) Oral QAM 06/19/2021 08/20/2021 Inactive potassium chloride ER 8 mEq tablet,extended release RxNorm: 013834 Take 2 Tablet(s) Oral two times a day 06/19/2021 06/23/2021 Inactive fluticasone 113 mcg-salmeterol 14 mcg/actuation breath activated powdr RxNorm: 7430105 Inhale 1 Puff(s) Inhalation QAM 06/19/2021 10/27/2021 Inactive furosemide 40 mg tablet RxNorm: 123621 Take 1 Tablet(s) Oral QAM 03/18/2022 Inactive alprazolam 0.25 mg tablet RxNorm: 994067 Take 1 Tablet(s) Oral Q8H as needed 06/19/2021 07/29/2021 Inactive gabapentin 100 mg capsule RxNorm: 588706 Take 2 Capsule (s) Oral every night at bedtime 06/19/2021 07/29/2021 Inactive losartan 25 mg tablet RxNorm: 759969 Take 1 Tablet(s) Oral QD 06/1910/20/2021 Inactive tramadol 50 mg tablet RxNorm: 745462 Take 1 Tablet(s) O ral three times a day as needed 06/19/2021 10/27/2021 Inactive Tylenol Arthritis Pain 650 mg tablet,extended release RxNorm : 6191720 Take 1 Tablet(s) Oral four times a day 05/05/2021 03/18/2022 Inactive Synthroid 88 mcg tablet RxNorm: 169411 Take 1 Tablet(s) Oral QD 04/30/2021 Inactive BRAND NAME ONLY0 Synthroid 88 mcg tablet RxNorm: 160247 1 Tablet(s) Oral QD 04/29/20 21 04/29/2021 Inactive Synthroid 88 mcg tablet RxNorm: 294564 1 Tablet(s) Oral QD 04/29/20 21 04/29/2021 Inactive magnesium oxide 400 mg (241.3 mg magnesium) tablet RxNorm: 1 23482 1 Tablet(s) Oral every night at bedtime 04/03/2021 No Stop Date Active Vitamin B12 1000mcg Tablet RxNorm: Take 1/2 Tablet(s) Oral QD 04/03/2021 No Stop Date Active aspirin 81 mg capsule RxNorm: 615766 1 Capsule(s) Oral QD No Stop Date Active doxazosin 1 mg tablet RxNorm: 486700 1 Tablet(s) Oral QPM 03/19/2021 04/02/2021 Inactive Cartia XT 240 mg capsule,extended release RxNorm: 477649 Take 1 Capsule(s) Oral QD 02/06/2021 06/18/2021 Inactive fluticasone propionate 50 mcg/actuation nasal spray,suspensi on RxNorm: 5733804 SHAKE LIQUID AND USE 2 SPRAYS IN EACH NOSTRIL EVERY NIGHT AT BEDTIME 12/19/2020 01/17/2021 Inactive diltiazem 120 mg tablet RxNorm: 289096 1 Tablet(s) Oral QD 12/12/1902/05/2021 Inactive Flonase Allergy Relief 50 mcg/actuation nasal spray,suspensi on RxNorm: 3377086 2 Ora Nasal every night at bedtime 11/21/2020 11/21/2020 Inactive diltiazem 120 mg tablet RxNorm: 418597 Take 1 Tablet(s) Oral tw o times a day 11/11/2020 12/10/2020 Inactive oxybutynin chloride 5 mg tablet RxNorm: 248069 Take 1 T ablet(s) Oral every night at bedtime for overactive bladder 11/11/2020 11/11/2020 Inactive oxybutynin chloride 5 mg tablet RxNorm: 621244 Take 1 T ablet(s) Oral every night at bedtime for overactive bladder 11/11/2020 11/11/2020 Inactive oxybutynin chloride 5 mg tablet RxNorm: 082877 TAKE 1 T ABLET BY MOUTH EVERY NIGHT AT BEDTIME FOR OVERACTIVE BLADDER 11/11/2020 02/05/2021 Inactive Patient requests 90 days supply MagOx 400 mg (241.3 mg magnesium) tablet RxNorm: 887165 TAKE 1 TABLET BY MOUTH EVERY OTHER DAY 10/28/2020 02/05/2021 Inactive Synthroid 75 mcg tablet RxNorm: 498427 TAKE 1 TABLET BY MOUTH EVERY DAY DIRECTED 09/06/2020 04/29/2021 Inactive diltiazem CD 120 mg capsule,extended release 24 hr RxNorm: 8 75073 1 Tablet(s) Oral QD 09/05/2020 11/10/2020 Inactive Synthroid 75 mcg tablet RxNorm: 994580 TAKE 1 TABLET BY MOUTH EVERY DAY DIRECTED 09/03/2020 09/05/2020 Inactive Synthroid 75 mcg tablet RxNorm: 466686 TAKE 1 TABLET BY MOUTH EVERY DAY DIRECTED 09/03/2020 09/02/2020 Inactive MagOx 400 mg (241.3 mg magnesium) tablet RxNorm: 472967 1 Table t(s) Oral QOD 07/30/2020 11/10/2020 Inactive MagOx 400 mg (241.3 mg magnesium) tablet RxNorm: 444190 1 Table t(s) Oral QOD 07/29/2020 07/29/2020 Inactive diltiazem CD 120 mg capsule,extended release 24 hr RxNorm: 8 55825 1 Tablet(s) Oral two times a day 07/29/2020 09/04/2020 Inactive diltiazem CD 120 mg capsule,extended release 24 hr RxNorm: 8 13978 1 Tablet(s) Oral two times a day 07/04/2020 07/03/2020 Inactive diltiazem CD 120 mg capsule,extended release 24 hr RxNorm: 8 46442 1 Tablet(s) Oral two times a day 07/04/2020 07/28/2020 Inactive Eliquis 5 mg tablet RxNorm: 1966873 TAKE 1 TABLET BY MOUTH TWICE DAILY 06/10/2020 02/16/2022 Inactive diltiazem CD 120 mg capsule,extended release 24 hr RxNorm: 8 42271 TAKE 1 CAPSULE BY MOUTH DAILY 06/10/2020 06/09/2020 Inactive Eliquis 5 mg tablet RxNorm: 5638763 TAKE 1 TABLET BY MOUTH TWICE DAILY 06/10/2020 06/09/2020 Inactive diltiazem CD 120 mg capsule,extended release 24 hr RxNorm: 8 27721 TAKE 1 CAPSULE BY MOUTH DAILY 06/10/2020 07/03/2020 Inactive Synthroid 75 mcg tablet RxNorm: 630601 TAKE 1 TABLET BY MOUTH EVERY DAY DIRECTED 06/10/2020 09/02/2020 Inactive Flonase Allergy Relief 50 mcg/actuation nasal spray,suspensi on RxNorm: 7071872 2 Ora Nasal every night at bedtime 04/26/2020 04/26/2020 Inactive Vitamin D3 25 mcg (1,000 unit) capsule RxNorm: 756387 3 Capsule (s) Oral QD 04/22/2020 No Stop Date Active MagOx 400 mg (241.3 mg magnesium) tablet RxNorm: 534839 1 Table t(s) Oral QOD 04/22/2020 04/21/2020 Inactive MagOx 400 mg (241.3 mg magnesium) tablet RxNorm: 064007 1 Table t(s) Oral QOD 04/22/2020 07/21/2020 Inactive prednisone 10 mg tablet RxNorm: 781558 1 Tablet(s) Oral two norma es a day 03/22/2020 03/27/2020 Inactive Eliquis 5 mg tablet RxNorm: 5086639 TAKE 1 TABLET BY MOUTH TWICE DAILY 03/15/2020 06/09/2020 Inactive Synthroid 75 mcg tablet RxNorm: 689745 TAKE 1 TABLET BY MOUTH EVERY DAY DIRECTED 03/15/2020 06/09/2020 Inactive furosemide 20 mg tablet RxNorm: 240496 1 Tablet(s) Oral QAM as needed 03/14/2020 06/20/2020 Inactive diltiazem CD 120 mg capsule,extended release 24 hr RxNorm: 8 22552 TAKE 1 CAPSULE BY MOUTH DAILY 03/14/2020 06/09/2020 Inactive amiodarone 200 mg tablet RxNorm: 086489 TAKE 1 TABLET BY MOUTH SIMON Y 03/14/2020 06/23/2020 Inactive potassium chloride ER 20 mEq tablet,extended release RxNorm: 138239 1 Tablet(s) Oral two times a day as needed 02/29/2020 06/20/2020 Inactive furosemide 20 mg tablet RxNorm: 654595 1 Tablet(s) Oral QAM as needed 02/29/2020 03/13/2020 Inactive Macrobid 100 mg capsule RxNorm: 367224 1 Capsule(s) Oral two ti mes a day 02/15/2020 02/18/2020 Inactive Macrobid 100 mg capsule RxNorm: 081905 1 Capsule(s) Oral two ti mes a day 02/15/2020 02/14/2020 Inactive magnesium oxide 400 mg (241.3 mg magnesium) tablet RxNorm: 1 95036 TAKE 1/2 TABLET BY MOUTH EVERY DAY 01/30/2020 02/21/2020 Inactive Flonase Allergy Relief 50 mcg/actuation nasal spray,suspensi on RxNorm: 6967539 2 Ora Nasal every night at bedtime 01/22/2020 04/25/2020 Inactive furosemide 20 mg tablet RxNorm: 234311 1 Tablet(s) Oral QOD 020 02/12/2020 Inactive potassium chloride ER 20 mEq tablet,extended release RxNorm: 576271 1 Tablet(s) Oral two times a day 01/04/2020 02/12/2020 Inactive potassium chloride ER 20 mEq tablet,extended release RxNorm: 337506 TAKE 1 TABLET BY MOUTH TWICE DAILY 01/03/2020 01/03/2020 Inactive diltiazem CD 120 mg capsule,extended release 24 hr RxNorm: 8 43953 1 Capsule(s) Oral QD 12/26/2019 03/13/2020 Inactive Colace 100 mg capsule RxNorm: 2530493 2 Capsule(s) Oral QD 12/26/19 20 03/18/2022 Inactive Flonase Allergy Relief 50 mcg/actuation nasal spray,suspensi on RxNorm: 5355228 2 SPRAY NASAL QHS 12/26/2019 12/28/2019 Inactive amiodarone 200 mg tablet RxNorm: 354081 1 Tablet(s) Oral QD 020 01/21/2020 Inactive Eliquis 5 mg tablet RxNorm: 7164629 1 Tablet(s) Oral two times a da y 12/26/2019 03/14/2020 Inactive potassium chloride ER 20 mEq tablet,extended release RxNorm: 094090 2 Tablet(s) Oral QD with furosemide 12/20/2019 01/21/2020 Inactive furosemide 20 mg tablet RxNorm: 987620 1 Tablet(s) Oral QAM 020 01/18/2020 Inactive Synthroid 75 mcg tablet RxNorm: 567981 1 Tablet(s) Oral QD 12/18/19 20 02/16/2020 Inactive potassium chloride ER 20 mEq tablet,extended release RxNorm: 718355 2 Tablet(s) Oral QOD with furosemide 11/29/2019 12/19/2019 Inactive furosemide 40 mg tablet RxNorm: 167472 1 Tablet(s) Oral QOD 020 12/19/2019 Inactive amlodipine 5 mg tablet RxNorm: 740287 1 Tablet(s) Oral every ni ght at [...] 11/22/2019 Inactive cefdinir 300 mg capsule RxNorm: 046831 1 Capsule(s) Oral two ti mes a day 11/09/2019 11/16/2019 Inactive temazepam 15 mg capsule RxNorm: 374750 TAKE 1 CAPSULE B Y MOUTH EVERY NIGHT AT BEDTIME 11/06/2019 12/18/2019 Inactive magnesium oxide 400 mg (241.3 mg magnesium) tablet RxNorm: 1 42506 TAKE 1/2 TABLET BY MOUTH EVERY DAY 11/03/2019 2020 Inactive Synthroid 75 mcg tablet RxNorm: 986020 TAKE 1 TABLET BY MOUTH E VERY DAY 10/16/2019 12/17/2019 Inactive potassium chloride ER 20 mEq tablet,extended release RxNorm: 391143 TAKE 1 TABLET BY MOUTH TWICE DAILY 10/02/2019 11/28/2019 Inactive baclofen 10 mg tablet RxNorm: 250336 1/2-1 Tablet(s) Or al QPM as needed for muscle spasm 09/21/2019 01/21/2020 Inactive hydrochlorothiazide 25 mg tablet RxNorm: 643484 TAKE 1 TABLET BY MOUTH EVERY MORNING 09/21/2019 11/26/2019 Inactive amlodipine 5 mg tablet RxNorm: 260975 TAKE 1 TABLET BY MOUTH TW ICE DAILY 09/06/2019 11/27/2019 Inactive magnesium oxide 400 mg (241.3 mg magnesium) tablet RxNorm: 1 44228 TAKE 1/2 TABLET BY MOUTH EVERY DAY 09/06/2019 11/02/2019 Inactive temazepam 15 mg capsule RxNorm: 213537 TAKE 1 CAPSULE B Y MOUTH EVERY DAY AT BEDTIME 09/04/2019 11/05/2019 Inactive baclofen 10 mg tablet RxNorm: 270631 1/2-1 Tablet(s) Or al QPM as needed for muscle spasm 08/25/2019 09/20/2019 Inactive Synthroid 75 mcg tablet RxNorm: 040836 TAKE 1 TABLET BY MOUTH E VERY DAY 08/17/2019 10/15/2019 Inactive Cytomel 5 mcg tablet RxNorm: 529364 TAKE 1 TABLET BY MOUTH EVERY DA Y 08/13/2019 01/21/2020 Inactive potassium chloride ER 20 mEq tablet,extended release RxNorm: 208761 TAKE 1 TABLET BY MOUTH TWICE DAILY 07/06/2019 10/01/2019 Inactive Synthroid 75 mcg tablet RxNorm: 199451 1 Tablet(s) Oral QD Recheck labs in 2 months 06/21/2019 08/16/2019 Inactive Recheck labs in 2 months Synthroid 75 mcg tablet RxNorm: 474068 1 Tablet(s) Oral QD Recheck labs in 2 months 06/21/2019 06/20/2019 Inactive Recheck labs in 2 months amlodipine 5 mg tablet RxNorm: 728027 TAKE 1 TABLET BY MOUTH TW ICE DAILY 06/11/2019 09/05/2019 Inactive Diflucan 100 mg tablet RxNorm: 239524 1 Tablet(s) Oral QD 05/29/2019 06/04/2019 Inactive Zithromax Z-Topher 250 mg tablet RxNorm: 929338 Tablet(s) Oral as directed 05/29/2019 05/28/2019 Inactive Zithromax Z-Topher 250 mg tablet RxNorm: 853584 Tablet(s) Oral as directed 05/29/2019 05/29/2019 Inactive Diflucan 100 mg tablet RxNorm: 071556 1 Tablet(s) Oral QD 05/29/2019 05/28/2019 Inactive cefdinir 300 mg capsule RxNorm: 758817 1 Capsule(s) Oral two ti mes a day 05/19/2019 05/22/2019 Inactive Synthroid 50 mcg tablet RxNorm: 581447 1 TABLET(S) PO QD 05/18/2019 0 06/20/2019 Inactive lab draw in 2 months to recheck thyroid temazepam 15 mg capsule RxNorm: 004268 TAKE 1 CAPSULE B Y MOUTH EVERY DAY AT BEDTIME 05/18/2019 07/16/2019 Inactive Cytomel 5 mcg tablet RxNorm: 062895 1 Tablet(s) Oral QD 05/18/2019 Inactive cefdinir 300 mg capsule RxNorm: 107746 1 Capsule(s) Oral two ti mes a day 05/18/2019 05/18/2019 Inactive magnesium oxide 400 mg (241.3 mg magnesium) tablet RxNorm: 1 73518 1/2 TABLET(S) PO QD 05/10/2019 05/10/2019 Inactive temazepam 15 mg capsule RxNorm: 174733 TAKE 1 CAPSULE B Y MOUTH EVERY DAY AT BEDTIME 05/09/2019 05/16/2019 Inactive magnesium oxide 400 mg (241.3 mg magnesium) tablet RxNorm: 1 33141 1/2 TABLET(S) PO QD 05/02/2019 05/09/2019 Inactive nystatin 100,000 unit/mL oral suspension RxNorm: 900292 5 Milliliter(s) Oral four times a day 04/24/2019 05/07/2019 Inactive cephalexin 500 mg capsule RxNorm: 254317 1 Capsule(s) Oral thre e times a day 04/21/2019 04/27/2019 Inactive cephalexin 500 mg capsule RxNorm: 092640 1 Capsule(s) Oral thre e times a day 04/21/2019 04/20/2019 Inactive potassium chloride ER 20 mEq tablet,extended release RxNorm: 392070 1 Tablet(s) Oral two times a day 04/10/2019 07/05/2019 Inactive Patient r equests 90 days supplyPatient requests 90 days supply nystatin 100,000 unit/mL oral suspension RxNorm: 008681 5 Milliliter(s) Oral four times a day 04/10/2019 04/23/2019 Inactive Diflucan 100 mg tablet RxNorm: 571240 1 Tablet(s) Oral QD 04/10/2019 04/17/2019 Inactive temazepam 15 mg capsule RxNorm: 719272 TAKE 1 CAPSULE B Y MOUTH EVERY DAY AT BEDTIME 04/04/2019 05/03/2019 Inactive Synthroid 50 mcg tablet RxNorm: 572355 1 TABLET(S) PO QD 04/04/2019 1 07/18/2018 Inactive lab draw in 2 months to recheck thyroid magnesium oxide 400 mg (241.3 mg magnesium) tablet RxNorm: 1 72185 1 Tablet(s) Oral QOD 04/04/2019 02/21/2020 Inactive hydrochlorothiazide 25 mg tablet RxNorm: 612894 1 Tablet(s) Oral QA M 03/28/2019 09/20/2019 Inactive amlodipine 5 mg tablet RxNorm: 791607 1 TABLET(S) PO BID 03/15/2019 0 06/12/2019 Inactive magnesium oxide 400 mg (241.3 mg magnesium) tablet RxNorm: 1 23063 1/2 TABLET(S) PO QD 03/06/2019 04/03/2019 Inactive Cytomel 5 mcg tablet RxNorm: 932705 1 Tablet(s) PO QD 02/20/201902/05 Inactive Cytomel 5 mcg tablet RxNorm: 403460 1 Tablet(s) PO QD 02/20/201905/07 Inactive amlodipine 5 mg tablet RxNorm: 192901 1 Tablet(s) PO BID 02/16/2019 0 02/15/2019 Inactive amlodipine 5 mg tablet RxNorm: 556660 1 Tablet(s) PO BID 02/16/2019 1 07/17/2018 Inactive amlodipine 5 mg tablet RxNorm: 802411 1 Tablet(s) PO BID 02/16/2019 0 02/16/2019 Inactive Synthroid 50 mcg tablet RxNorm: 468057 1 TABLET(S) PO QD 02/13/2019 1 Inactive Synthroid 50 mcg tablet RxNorm: 578168 1 TABLET(S) PO QD 01/16/2019 0 02/12/2019 Inactive magnesium oxide 400 mg (241.3 mg magnesium) tablet RxNorm: 1 75710 1/2 Tablet(s) PO QD 01/11/2019 03/05/2019 Inactive temazepam 15 mg capsule RxNorm: 379542 1 Capsule(s) PO QHS 01/04/20 19 04/03/2019 Inactive cefdinir 300 mg capsule RxNorm: 734829 1 Capsule(s) PO BID 12/22/19 19 12/20/2018 Inactive cefdinir 300 mg capsule RxNorm: 709872 1 Capsule(s) PO BID 12/22/19 19 12/24/2018 Inactive hydrochlorothiazide 25 mg tablet RxNorm: 697028 1 Tablet(s) PO QAM 12/19/2018 03/27/2019 Inactive magnesium oxide 400 mg (241.3 mg magnesium) tablet RxNorm: 1 98323 1/2 Tablet(s) PO QD 12/15/2018 01/11/2019 Inactive magnesium oxide 400 mg (241.3 mg magnesium) tablet RxNorm: 1 81723 1/2 Tablet(s) PO QD 12/15/2018 12/14/2018 Inactive Flonase Allergy Relief 50 mcg/actuation nasal spray,suspensi on RxNorm: 5619962 2 SPRAY NASAL QHS 11/09/2018 12/11/2018 Inactive temazepam 15 mg capsule RxNorm: 501258 1 Capsule(s) PO QHS 11/08/1901/02/2019 Inactive Synthroid 50 mcg tablet RxNorm: 987510 1 Tablet(s) PO QD 10/21/2018 0 01/15/2019 Inactive potassium chloride ER 20 mEq tablet,extended release RxNorm: 222346 Tablet(s) 1 TABLET(S) PO BID 10/19/2018 04/09/2019 Inactive Patient reque sts 90 days supplyPatient requests 90 days supply Flonase Allergy Relief 50 mcg/actuation nasal spray,suspensi on RxNorm: 0348316 2 SPRAY NASAL QHS 10/14/2018 12/11/2018 Inactive Patient reques ts 90 days supply Flonase Allergy Relief 50 mcg/actuation nasal spray,suspensi on RxNorm: 0431617 2 Ora NASAL QHS 10/13/2018 10/13/2018 Inactive temazepam 15 mg capsule RxNorm: 369660 1 Capsule(s) PO QHS 10/06/19 19 11/06/2018 Inactive Synthroid 50 mcg tablet RxNorm: 933877 1 Tablet(s) PO QD 10/05/2018 0 10/20/2018 Inactive promethazine 6.25 mg/5 mL oral syrup RxNorm: 337139 5 M illiliter(s) PO Q6H as needed for cough 09/30/2018 12/11/2018 Inactive promethazine-DM 6.25 mg-15 mg/5 mL oral syrup RxNorm: 747218 5 PO Q6H as needed for cough 09/30/2018 12/11/2018 Inactive prednisone 10 mg tablet RxNorm: 429013 1 Tablet(s) PO QD 09/27/2018 0 09/26/2018 Inactive prednisone 10 mg tablet RxNorm: 824545 1 Tablet(s) PO QD 09/27/2018 0 10/03/2018 Inactive cefdinir 300 mg capsule RxNorm: 529079 1 Capsule(s) PO BID 09/24/1909/29/2018 Inactive Macrobid 100 mg capsule RxNorm: 690894 1 Capsule(s) PO BID 09/21/19 19 09/25/2018 Inactive potassium chloride ER 20 mEq tablet,extended release RxNorm: 975153 1 TABLET(S) PO BID 09/14/2018 10/13/2018 Inactive Patient reques ts 90 days supplyPatient requests 90 days supply potassium chloride ER 20 mEq tablet,extended release RxNorm: 893924 1 Tablet(s) PO BID 09/12/2018 09/13/2018 Inactive Patient reques ts 90 days supply Macrobid 100 mg capsule RxNorm: 393614 1 Capsule(s) PO BID 09/06/1909/11/2018 Inactive potassium chloride ER 20 mEq tablet,extended release RxNorm: 702419 1 TABLET(S) PO QD 1 TABLET(S) PO QD 08/26/2018 09/11/2018 Inactive Patien t requests 90 days supply potassium chloride ER 20 mEq tablet,extended release RxNorm: 811385 1 Tablet(s) PO QD 1 TABLET(S) PO QD 08/26/2018 08/25/2018 Inactive potassium chloride ER 20 mEq tablet,extended release RxNorm: 775641 1 TABLET(S) PO QD 08/25/2018 08/25/2018 Inactive Synthroid 50 mcg tablet RxNorm: 550205 1 TABLET(S) PO QD 08/2309/04/2018 Inactive potassium chloride ER 20 mEq tablet,extended release RxNorm: 060784 1 Tablet(s) PO QD 07/28/2018 08/24/2018 Inactive potassium chloride ER 20 mEq tablet,extended release RxNorm: 721973 1 Tablet(s) PO QD 07/28/2018 07/27/2018 Inactive hydrochlorothiazide 25 mg tablet RxNorm: 412990 1 Tablet(s) PO QAM 06/27/2018 12/18/2018 Inactive Synthroid 50 mcg tablet RxNorm: 673817 1 Tablet(s) PO QD DAW1 06/2708/22/2018 Inactive Synthroid 50 mcg tablet RxNorm: 804947 1 TABLET(S) PO QD DAW1 06/1306/26/2018 Inactive Synthroid 75 mcg tablet RxNorm: 152467 1 TABLET(S) PO QD 06/13/2018 0 09/04/2018 Inactive BRAND ONLY mupirocin 2 % topical ointment RxNorm: 963465 1 Applica tion TOP BID to affected area as needed 05/03/2018 09/14/2018 Inactive hydrochlorothiazide 25 mg tablet RxNorm: 261433 1 TABLET(S) PO QD 1 07/02/2017 06/26/2018 Inactive Synthroid 50 mcg tablet RxNorm: 204630 1 Tablet(s) PO QD DAW1 04/1506/12/2018 Inactive Synthroid 50 mcg tablet RxNorm: 211055 1 Tablet(s) PO QD DAW1 04/1504/14/2018 Inactive Synthroid 75 mcg tablet RxNorm: 407981 1 Tablet(s) PO QD 03/15/2018 1 06/14/2017 Inactive BRAND ONLY temazepam 15 mg capsule RxNorm: 946166 1 Capsule(s) PO QHS 03/15/20 18 06/12/2018 Inactive Synthroid 75 mcg tablet RxNorm: 220156 1 Tablet(s) PO QD 01/27/2018 1 Inactive BRAND ONLY Synthroid 75 mcg tablet RxNorm: 035899 1 Tablet(s) PO QD (6 day s per week) 01/17/2018 01/26/2018 Inactive BRAND ONLY Duexis 800 mg-26.6 mg tablet RxNorm: 9452109 1/2 Tablet(s) PO BID 0 10/20/2017 10/22/2017 Inactive Synthroid 75 mcg tablet RxNorm: 658729 1 Tablet(s) PO QD 09/17/2017 1 Inactive BRAND ONLY hydrochlorothiazide 25 mg tablet RxNorm: 523151 1 TABLET(S) PO QD 0 08/30/2017 05/01/2018 Inactive hydrochlorothiazide 25 mg tablet RxNorm: 740294 1 Tablet(s) PO QAM 06/03/2017 09/14/2018 Inactive hydrochlorothiazide 12.5 mg tablet RxNorm: 044974 1 Tablet(s) PO QA M 05/25/2017 06/02/2017 Inactive Synthroid 75 mcg tablet RxNorm: 156030 1 Tablet(s) PO QD 05/14/2017 0 09/17/2017 Inactive BRAND ONLY Restoril 15 mg capsule RxNorm: 945684 TAKE 1 CAPSULE BY MOUTH EVERY NIGHT AT BEDTIME NEEDED 03/05/2017 04/02/2017 Inactive Synthroid 75 mcg tablet RxNorm: 210777 1 Tablet(s) PO QD 01/18/2017 1 07/15/2016 Inactive BRAND ONLY Synthroid 50 mcg tablet RxNorm: 320272 1 Tablet(s) PO QD 01/13/2017 0 01/17/2017 Inactive tizanidine 2 mg tablet RxNorm: 509961 1 Tablet(s) PO QHS for spasm 01/04/2017 03/21/2017 Inactive tizanidine 2 mg tablet RxNorm: 566277 1 Tablet(s) PO QHS for spasm 12/17/2016 01/04/2017 Inactive hydrochlorothiazide 25 mg tablet RxNorm: 381094 1 Tablet(s) PO QD 0 12/04/2016 01/03/2017 Inactive Synthroid 50 mcg tablet RxNorm: 309764 1 Tablet(s) PO QD as directe d 11/18/2016 01/13/2017 Inactive Synthroid 75 mcg tablet RxNorm: 088686 1 Tablet(s) PO QD as directe d 11/18/2016 01/10/2017 Inactive Restoril 15 mg capsule RxNorm: 921599 1 Capsule(s) PO QHS as ne eded for sleep 11/16/2016 03/05/2017 Inactive losartan 50 mg tablet RxNorm: 919591 1 Tablet(s) PO BID 10/19/2016 Inactive prednisone 20 mg tablet RxNorm: 070209 1 Tablet(s) PO QD 10/08/2016 0 10/07/2016 Inactive clindamycin 300 mg capsule RxNorm: 320814 1 Capsule(s) PO TID 10/0810/17/2016 Inactive prednisone 20 mg tablet RxNorm: 473623 1 Tablet(s) PO QD 10/08/2016 0 10/12/2016 Inactive clindamycin 300 mg capsule RxNorm: 281178 1 Capsule(s) PO TID 10/0810/07/2016 Inactive cephalexin 500 mg capsule RxNorm: 453449 1 Capsule(s) PO TID 201610/07/2016 Inactive levothyroxine 75 mcg tablet RxNorm: 620798 TAKE 1 TABLET BY TONE TH EVERY DAY 10/02/2016 10/04/2016 Inactive levothyroxine 75 mcg tablet RxNorm: 799937 1 Tablet(s) PO QD 201610/04/2016 Inactive Restoril 15 mg capsule RxNorm: 315973 1 Capsule(s) PO QHS 08/23/2016 11/15/2016 Inactive levothyroxine 75 mcg tablet RxNorm: 951561 1 Tablet(s) PO QD 201608/19/2016 Inactive levothyroxine 75 mcg tablet RxNorm: 841572 1 Tablet(s) PO QD 201609/09/2016 Inactive levothyroxine 50 mcg capsule RxNorm: 040909 1 Capsule(s) PO QD 0206/201608/19/2016 Inactive hydrochlorothiazide 25 mg tablet RxNorm: 534895 1 Tablet(s) PO QD 0 06/23/2016 12/03/2016 Inactive amoxicillin 500 mg tablet RxNorm: 844857 1 Tablet(s) PO TID 016 06/03/2016 Inactive doxycycline hyclate 100 mg capsule RxNorm: 5032856 1 Capsule(s) PO BID 06/03/2016 06/12/2016 Inactive doxycycline hyclate 100 mg capsule RxNorm: 8522045 1 Capsule(s) PO BID 06/03/2016 06/02/2016 Inactive levothyroxine 75 mcg tablet RxNorm: 727025 1 Tablet(s) PO QD 201505/19/2016 Inactive losartan 50 mg tablet RxNorm: 051158 1 TABLET(S) PO BID 04/07/2016 Inactive metoprolol succinate ER 50 mg tablet,extended release 24 hr RxNorm: 469981 1 TABLET(S) PO QHS AND 1/2 TAB IN THE AM--REPLACES 25MG DOSE 04/03/2016 07/27/2016 Inactive Restoril 15 mg capsule RxNorm: 834408 1 Capsule(s) PO QHS as ne eded for sleep 02/24/2016 05/23/2016 Inactive hydrochlorothiazide 12.5 mg tablet RxNorm: 857841 1 Tab let(s) PO QD replaces 25mg dose 01/13/2016 06/22/2016 Inactive metoprolol succinate ER 50 mg tablet,extended release 24 hr RxNorm: 445231 1 Tablet(s) PO QHS and 1/2 tab in the AM--replaces 25mg dose 10/17/2015 04/02/2016 Inactive amlodipine 2.5 mg tablet RxNorm: 267532 1 Tablet(s) PO QHS 10/08/19 16 10/07/2015 Inactive amlodipine 2.5 mg tablet RxNorm: 746717 1 Tablet(s) PO QHS 10/08/19 16 10/16/2015 Inactive losartan 50 mg tablet RxNorm: 561564 1 TABLET(S) PO BID 09/23/2015 Inactive Medrol (Topher) 4 mg tablets in a dose pack RxNorm: 649801 Take as directed 09/03/2015 10/07/2015 Inactive Lasix 40 mg tablet RxNorm: 493052 1 TABLET(S) PO QD PRN FOR SWELLIN G 08/27/2015 12/04/2015 Inactive Lasix 40 mg tablet RxNorm: 666540 1 Tablet(s) PO QD prn for swellin g 08/01/2015 08/26/2015 Inactive losartan 50 mg tablet RxNorm: 267491 1 Tablet(s) PO BID 06/27/2015 Inactive Zyrtec 10 mg tablet RxNorm: 1208343 1 Tablet(s) PO QD 12/05/2015 Active magnesium oxide 400 mg (241.3 mg magnesium) tablet RxNorm: 89332 1 oral 05/25/2022 Active levothyroxine 50 mcg capsule RxNorm: 445854 1 Capsule(s) PO QD 06/201607/07/2016 Inactive sotalol 80 mg tablet RxNorm: 0984638 1/2 Tablet(s) PO BID 09/05/2018 09/04/2018 Inactive melatonin 1 mg tablet RxNorm: 470049 1 Tablet(s) PO QHS as need ed for sleep 12/05/2015 12/04/2015 Inactive levothyroxine 75 mcg tablet RxNorm: 654664 1 Tablet(s) PO 6 day s a week 07/08/2016 07/07/2016 Inactive Vitamin D3 1,000 unit tablet RxNorm: 328986 1 Tablet(s) PO QD 12/0412/04/2015 Inactive sotalol 80 mg tablet RxNorm: 8604659 1 Tablet(s) PO BID 08/30/2017 Inactive Synthroid 75 mcg tablet RxNorm: 517621 2 Tablet(s) PO M, W, F 09/1509/14/2018 Inactive tizanidine 2 mg tablet RxNorm: 986853 1 Tablet(s) PO QHS for spasm 12/17/2016 12/16/2016 Inactive Nasacort AQ 55 mcg nasal spray aerosol RxNorm: 8486284 Ora ANNELIESE AL as needed 12/12/2018 12/11/2018 Inactive fluocinonide 0.05 % topical gel RxNorm: 478005 TOP as needed on gum s 07/28/2016 07/27/2016 Inactive Flonase Allergy Relief 50 mcg/actuation nasal spray,suspensi on RxNorm: 3426974 2 Ora NASAL QHS 10/13/2018 10/12/2018 Inactive Synthroid 50 mcg tablet RxNorm: 405983 1 Tablet(s) PO Tu, Thur, Sat, Sun 09/20/2018 09/19/2018 Inactive Osteo Bi-Flex (5-Loxin) 1,500 mg-400 unit-100 mg tablet RxNo rm: 1 Tablet(s) PO QD 12/05/2015 12/04/2015 Inactive hydrochlorothiazide 25 mg tablet RxNorm: 580895 1/2 Tablet(s) PO QA M 01/13/2016 01/12/2016 Inactive metoprolol succinate ER 25 mg tablet,extended release 24 hr RxNorm: 812716 1 Tablet(s) PO QD 10/17/2015 10/16/2015 Inactive promethazine-DM 6.25 mg-15 mg/5 mL oral syrup RxNorm: 006379 5 PO Q6H as needed for cough 09/30/2018 09/29/2018 Inactive Synthroid 50 mcg tablet RxNorm: 441402 1 Tablet(s) PO QD 10/05/2018 0 10/04/2018 Inactive mupirocin 2 % topical ointment RxNorm: 787946 1 Applica tion TOP BID to affected area as needed 05/03/2018 05/02/2018 Inactive hydrochlorothiazide 25 mg tablet RxNorm: 923989 1 Tablet(s) PO QOD 01/13/2016 01/12/2016 Inactive Vitamin D3 1000 units Capsule RxNorm: 1 Capsule(s) PO QD 9 12/11/2018 Inactive levothyroxine 75 mcg tablet RxNorm: 370531 1 Tablet(s) PO QD 201505/07/2016 Inactive potassium chloride ER 10 mEq capsule,extended release RxNorm : 260379 1 Capsule(s) PO QD 12/05/2015 12/04/2015 Inactive aspirin 81 mg tablet RxNorm: 809271 1 Tablet(s) PO QHS 01/22/2020 Inactive Claritin 10 mg tablet RxNorm: 249782 1 Tablet(s) PO QD 12/05/2015 Inactive Vitamin B12 1000mcg Tablet RxNorm: 1/2 Tablet(s) PO QD 12/12/2018 12/11/2018 Inactive temazepam 15 mg capsule RxNorm: 872121 1 Capsule(s) PO QHS 03/15/20 18 03/14/2018 Inactive hydrochlorothiazide 25 mg tablet RxNorm: 673244 1 Tablet(s) PO QAM 12/05/2015 12/04/2015 Inactive sotalol 80 mg tablet RxNorm: 5191690 1/2 Tablet(s) PO QD 09/22/2018 0 09/21/2018 Inactive mupirocin 2 % topical ointment RxNorm: 581073 TOP as needed 017 08/24/2016 Inactive hydrochlorothiazide 25 mg tablet RxNorm: 426918 1/2 Tablet(s) PO QA M 05/25/2017 05/24/2017 Inactive amlodipine 10 mg tablet RxNorm: 728240 1 Tablet(s) PO QD 02/16/2019 0 02/15/2019 Inactive Citracal + D Slow Release 600 mg calcium-500 unit tablet,ext .release RxNorm: 2 Tablet(s) PO QD 02/16/2019 02/15/2019 Inactive triamcinolone acetonide 0.1 % topical cream RxNorm: 4269576 TOP as needed 12/12/2018 12/11/2018 Inactive Restoril 15 mg capsule RxNorm: 416889 1 Capsule(s) PO QHS 02/24/2016 02/23/2016 Inactive hydrochlorothiazide 25 mg tablet RxNorm: 327752 1/2 Tablet(s) PO QO D 01/13/2016 01/12/2016 Inactive promethazine 6.25 mg/5 mL oral syrup RxNorm: 403055 5 M illiliter(s) PO Q6H as needed for cough 09/30/2018 09/29/2018 Inactive Centrum Silver Women 8 mg iron-400 mcg-300 mcg tablet RxNorm : 1 Tablet(s) PO QD 08/30/2017 08/29/2017 Inactive losartan 50 mg tablet RxNorm: 116625 1 Tablet(s) PO QHS 01/04/2017 Inactive levothyroxine 75 mcg tablet RxNorm: 093598 1 Tablet(s) PO 6 day s a week 10/05/2016 10/04/2016 Inactive losartan 50 mg tablet RxNorm: 762676 2 Tablet(s) PO QD 06/27/2015 Inactive Culturelle 10 billion cell capsule RxNorm: 028974 1-2 Capsule(s ) PO QD 05/10/2019 05/09/2019 Inactive Culturelle 10 billion cell capsule RxNorm: 408491 1 Capsule(s) PO Q D 08/30/2017 08/29/2017 Inactive Synthroid 75 mcg tablet RxNorm: 632692 1 Tablet(s) PO MW 01/18/2017 01/17/2017 Inactive [...] Code Item Item Code Result Date S [facility] Location COMPLETE BLOOD COUNT [id number] WBC 6.5 10e9/L 09/27/19 19 Unknown COMPLETE BLOOD COUNT [id number] RBC 4.22 10e12/L 2018 Unknown COMPLETE BLOOD COUNT [id number] HEMOGLOBIN 13.3 g/dL 09/27/19 19 Unknown COMPLETE BLOOD COUNT [id number] HEMATOCRIT 38.7 % 09/27/19 19 Unknown COMPLETE BLOOD COUNT [id number] MCV 91.7 fL 9 Unknown COMPLETE BLOOD COUNT [id number] MCH 31.5 pg 9 Unknown COMPLETE BLOOD COUNT [id number] MCHC 34.4 g/dL 9 Unknown COMPLETE BLOOD COUNT [id number] PLATELET COUNT 326 10e9/L Unknown COMPLETE BLOOD COUNT [id number] Mean Plt Volume 8.9 fL Unknown COMPLETE BLOOD COUNT 2136429 Neut Auto 69.0 % 9 Unknown COMPLETE BLOOD COUNT [id number] Lymph Auto 16.5 % 09/27/19 19 Unknown COMPLETE BLOOD COUNT [id number] [place] Auto 8.3 % 9 Unknown COMPLETE BLOOD COUNT [id number] RDW 12.2 % 9 Unknown COMPLETE BLOOD COUNT [id number] Eos Auto 5.9 % 9 Unknown COMPLETE BLOOD COUNT 3729780 Baso Auto 0.3 % 9 Unknown COMPLETE BLOOD COUNT [id number] Neutrophil Abs 4.48 10e9/L Unknown COMPLETE BLOOD COUNT [id number] Lymphocyte Abs 1.07 10e9/L Unknown COMPLETE BLOOD COUNT [id number] Monocyte Abs 0.54 10e9/L 09/06 Unknown COMPLETE BLOOD COUNT [id number] Eosinophil Abs 0.38 10e9/L Unknown COMPLETE BLOOD COUNT 8351069 RDW-SD 39.8 fL 9 Unknown COMPLETE BLOOD COUNT [id number] Basophil Abs 0.02 10e9/L 09/06 Unknown GFR CALC 1177113 GFR Non Afr Amr >60 mL/min 12/12/2015 Un known GFR CALC 0221269 GFR Afr Amr >60 mL/min 12/12/2015 [place] [address] Glucose 100 mg/dL 12/11 [place] [address] CREATININE 0.78 mg/dL 12/2015 [place] [address] BUN 14 mg/dL 12/11 [place] [address] SODIUM 132 mmol/L 12/2015 [place] [address] POTASSIUM 3.6 mmol/L 12/2015 [place] [address] CHLORIDE 97 mmol/L 12/11 [place] [address] Bicarbonate 28 mmol/L 12/2015 [place] [address] AGAP 7 mmol/L 12/11 [place] [address] CALCIUM 9.3 mg/dL 12/11 [place] [address] Glucose 92 mg/dL 12/04 [place] [address] CREATININE 0.76 mg/dL [place] [address] BUN 8 mg/dL 12/04 [place] [address] SODIUM 133 mmol/L 11/07 [place] [address] POTASSIUM 4.1 mmol/L 11/07 [place] [address] CHLORIDE 97 mmol/L 12/04 [place] [address] Bicarbonate 27 mmol/L [place] [address] AGAP 9 mmol/L 12/04 [place] [address] CALCIUM 9.8 mg/dL 12/04 Unknown GFR CALC [id number] GFR Afr Amr >60 mL/min 12/05/2015 Unknow n COMPREHENSIVE METABOLIC 20669 AST 36 U/L 2015 Unknown COMPREHENSIVE METABOLIC 21661 ALT 41 U/L 2015 Unknown COMPREHENSIVE METABOLIC 56936 BUN 11 mg/dL 2015 Unknown COMPREHENSIVE METABOLIC 93605 ALBUMIN 4.2 g/dL 2015 Unknown COMPREHENSIVE METABOLIC 70838 CHLORIDE 93 mmol/L 2015 Unknown COMPREHENSIVE METABOLIC 59563 Bili Total 1.0 mg/dL 11/24 Unknown COMPREHENSIVE METABOLIC 71405 ALK PHOS 79 U/L 2015 Unknown COMPREHENSIVE METABOLIC 48584 SODIUM 128 mmol/L 11/24 Unknown COMPREHENSIVE METABOLIC 53107 CREATININE 0.65 mg/dL 11/06 Unknown COMPREHENSIVE METABOLIC 46416 CALCIUM 9.4 mg/dL 2015 Unknown COMPREHENSIVE METABOLIC 98129 POTASSIUM 3.7 mmol/L 11/24 Unknown COMPREHENSIVE METABOLIC 03850 Total Protein 6.9 g/dL Unknown COMPREHENSIVE METABOLIC 79577 Glucose 101 mg/dL 2015 Unknown COMPREHENSIVE METABOLIC 14038 Bicarbonate 27 mmol/L 11/06 Unknown COMPREHENSIVE METABOLIC 86323 AGAP 8 mmol/L 2015 Unknown THYROID STIMULATING HORMONE 36227 TSH 2.983 uIU/mL 11/25/2015 Unknown COMPLETE BLOOD COUNT [id number] WBC 9.0 10e9/L 11/25/19 16 Unknown COMPLETE BLOOD COUNT [id number] RBC 3.98 10e12/L 2015 Unknown COMPLETE BLOOD COUNT 9207508 HEMOGLOBIN 12.8 g/dL 11/25/19 16 Unknown COMPLETE BLOOD COUNT 3787113 HEMATOCRIT 36.1 % 11/25/19 16 Unknown COMPLETE BLOOD COUNT 7303797 MCV 90.7 fL 6 Unknown COMPLETE BLOOD COUNT [id number] MCH 32.2 pg 6 Unknown COMPLETE BLOOD COUNT 0391996 MCHC 35.5 g/dL 6 Unknown COMPLETE BLOOD COUNT 0181457 PLATELET COUNT 291 10e9/L Unknown COMPLETE BLOOD COUNT 2652176 Mean Plt Volume 8.8 fL Unknown COMPLETE BLOOD COUNT 1252711 Neut Auto 72.2 % 6 Unknown COMPLETE BLOOD COUNT 6584548 Lymph Auto 19.4 % 11/25/19 16 Unknown COMPLETE BLOOD COUNT 4839774 [place] Auto 7.4 % 6 Unknown COMPLETE BLOOD COUNT 1166929 RDW 11.8 % 6 Unknown COMPLETE BLOOD COUNT 5479291 Eos Auto 0.7 % 6 Unknown COMPLETE BLOOD COUNT 0892695 Baso Auto 0.3 % 6 Unknown COMPLETE BLOOD COUNT 8274349 Neutrophil Abs 6.50 10e9/L Unknown COMPLETE BLOOD COUNT 0705910 Lymphoctye Abs 1.75 10e9/L Unknown COMPLETE BLOOD COUNT [id number] Monocyte Abs 0.67 10e9/L 11/06 Unknown COMPLETE BLOOD COUNT 2824400 Eosinophil Abs 0.06 10e9/L Unknown COMPLETE BLOOD COUNT 7484055 RDW-SD 38.1 fL 6 Unknown COMPLETE BLOOD COUNT 0136389 Basophil Abs 0.03 10e9/L 11/06 Unknown GFR CALC 3753055 GFR Non Afr Amr >60 mL/min 11/25/2015 Un known GFR CALC 5872993 GFR Afr Amr >60 mL/min 11/25/2015 Unknow n Procedures Procedure Codes Date SARSCOV CORONAVIRUS AG IA CPT-4: 64867 01/27/2022 CEFTRIAXONE SODIUM INJECTION CPT-4: J0696 01/27/2022 THER/PROPH/DIAG INJ SC/IM CPT-4: 30624 01/27/2022 URINALYSIS NONAUTO W/O SCOPE CPT-4: 43614 05/12/2021 RML URINE CULTURE/ COLONY COUNT CPT-4: 77047 05/12/20 FLU VACC PRSV FREE INC ANTIG 65 AND OLDER CPT-4: 51233 02/27/2021 ADMIN INFLUENZA VIRUS VAC CPT-4: G0008 02/27/2021 FLU VACC PRSV FREE INC ANTIG 65 AND OLDER CPT-4: 95267 02/27/2021 RML URINE CULTURE/ COLONY COUNT CPT-4: 96244 11/12/19 21 URINALYSIS NONAUTO W/O SCOPE CPT-4: 07262 11/11/2020 DESTRUCT PREMALG LESION (Cryosurgery) CPT-4: 32300 RML URINE CULTURE/ COLONY COUNT CPT-4: 82533 02/20/20 20 URINALYSIS NONAUTO W/O SCOPE CPT-4: 74751 02/13/2020 RML URINE CULTURE/ COLONY COUNT CPT-4: 30152 02/13/20 20 CEFTRIAXONE SODIUM INJECTION CPT-4: J0696 02/13/2020 THER/PROPH/DIAG INJ SC/IM CPT-4: 04680 02/13/2020 URINALYSIS NONAUTO W/O SCOPE CPT-4: 75301 11/09/2019 RML URINE CULTURE/ COLONY COUNT CPT-4: 37529 11/09/19 20 CEFTRIAXONE SODIUM INJECTION CPT-4: J0696 05/18/2019 THER/PROPH/DIAG INJ SC/IM CPT-4: 50951 05/18/2019 CEFTRIAXONE SODIUM INJECTION CPT-4: J0696 05/17/2019 THER/PROPH/DIAG INJ SC/IM CPT-4: 55262 05/17/2019 RML URINE CULTURE/ COLONY COUNT CPT-4: 87722 05/08/20 19 THROAT CULTURE CPT-4: 35449 05/08/2019 URINALYSIS NONAUTO W/O SCOPE CPT-4: 86438 04/21/2019 RML URINE CULTURE/ COLONY COUNT CPT-4: 53015 04/21/20 19 CEFTRIAXONE SODIUM INJECTION CPT-4: J0696 04/21/2019 THER/PROPH/DIAG INJ SC/IM CPT-4: 35800 04/21/2019 FLU VACC PRSV FREE INC ANTIG 65 AND OLDER CPT-4: 56128 03/02/2019 FLU VACC PRSV FREE INC ANTIG 65 AND OLDER CPT-4: 11957 03/02/2019 ADMIN INFLUENZA VIRUS VAC CPT-4: G0008 03/02/2019 URINALYSIS NONAUTO W/O SCOPE CPT-4: 93304 02/16/2019 Removal impacted cerumen using irrigation/lavage, unilateral CPT-4: 79611 12/14/2018 UA W/MICR CPT-4: 27980 10/05/2018 ROUTINE VENIPUNCTURE CPT-4: 34291 09/26/2018 RML COMPLETE CBC W/AUTO DIFF WBC CPT-4: 18201 019 CEFTRIAXONE SODIUM INJECTION CPT-4: J0696 09/22/2018 THER/PROPH/DIAG INJ SC/IM CPT-4: 70385 09/22/2018 INFLUENZA ASSAY W/OPTIC CPT-4: 51866 09/22/2018 URINALYSIS NONAUTO W/O SCOPE CPT-4: 76625 09/20/2018 CEFTRIAXONE SODIUM INJECTION CPT-4: J0696 09/20/2018 THER/PROPH/DIAG INJ SC/IM CPT-4: 36093 09/20/2018 RML URINE CULTURE/ COLONY COUNT CPT-4: 16729 09/21/19 19 RML URINE CULTURE/ COLONY COUNT CPT-4: 42899 09/15/19 19 URINALYSIS NONAUTO W/O SCOPE CPT-4: 59420 09/05/2018 RML URINE CULTURE/ COLONY COUNT CPT-4: 42776 09/06/19 19 URINALYSIS NONAUTO W/O SCOPE CPT-4: 26954 04/20/2018 RML URINE CULTURE/ COLONY COUNT CPT-4: 87406 04/20/20 18 CERUM REMOVAL CPT-4: 81455 03/18/2018 FLU VACC PRSV FREE INC ANTIG 65 AND OLDER CPT-4: 25926 03/03/2018 ADMIN INFLUENZA VIRUS VAC CPT-4: G0008 03/03/2018 PRESCRIP TRANSMIT VIA ERX SY CPT-4: G8553 05/25/2017 FLU VACC PRSV FREE INC ANTIG 65 AND OLDER CPT-4: 39529 03/08/2017 ADMIN INFLUENZA VIRUS VAC CPT-4: G0008 03/08/2017 PRESCRIP TRANSMIT VIA ERX SY CPT-4: G8553 01/18/2017 PRESCRIP TRANSMIT VIA ERX SY CPT-4: G8553 11/18/2016 RML URINE CULTURE/ COLONY COUNT CPT-4: 38657 10/27/19 17 URINALYSIS NONAUTO W/O SCOPE CPT-4: 03660 10/26/2016 PRESCRIP TRANSMIT VIA ERX SY CPT-4: G8553 10/08/2016 PRESCRIP TRANSMIT VIA ERX SY CPT-4: G8553 10/05/2016 PRESCRIP TRANSMIT VIA ERX SY CPT-4: G8553 06/23/2016 PRESCRIP TRANSMIT VIA ERX SY CPT-4: G8553 06/03/2016 INFLUENZA ASSAY W/OPTIC CPT-4: 39505 05/26/2016 FLU VACC PRSV FREE INC ANTIG 65 AND OLDER CPT-4: 73438 03/19/2016 ADMIN INFLUENZA VIRUS VAC CPT-4: G0008 03/19/2016 PNEUMOCOCCAL VACC 13 CARLIE IM CPT-4: 08723 01/13/2016 ADMIN PNEUMOCOCCAL VACCINE CPT-4: G0009 01/13/2016 PRESCRIP TRANSMIT VIA ERX SY CPT-4: G8553 01/13/2016 URINALYSIS NONAUTO W/O SCOPE CPT-4: 58375 11/27/2015 RML URINE CULTURE/ COLONY COUNT CPT-4: 79611 11/27/19 16 PRESCRIP TRANSMIT VIA ERX SY [...] 97.9 (F) We ight: 141 lbs Code: 22269-8 08/25/2022 Blood Pressure 1: 124/78 Code: 8480-6 Heart Rate 1: 75 bpm Respiratory Rate: 20 bpm SpO2: 98% Temperature: 36.4 (C) / 97.5 (F) We ight: 134 lbs Code: 57495-3 08/11/2022 Blood Pressure 1: 136/74 Code: 8480-6 Heart Rate 1: 69 bpm Respiratory Rate: 18 bpm SpO2: 97% Temperature: 36.7 (C) / 98.0 (F) We ight: 134 lbs Code: 24694-2 07/28/2022 Blood Pressure 1: 126/74 Code: 8480-6 Heart Rate 1: 74 bpm Respiratory Rate: 20 bpm SpO2: 97% Temperature: 36.4 (C) / 97.5 (F) We ight: 135 lbs Code: 52753-5 07/14/2022 Blood Pressure 1: 130/76 Code: 8480-6 Heart Rate 1: 51 bpm SpO2: 100% Temperature: 36.3 (C) / 97.3 (F) Weight: 130 lbs Code : 45449-8 06/23/2022 Blood Pressure 1: 140/80 Code: 8480-6 Heart Rate 1: 58 bpm Respiratory Rate: 20 bpm SpO2: 98% Temperature: 36.3 (C) / 97.3 (F) We ight: 135 lbs Code: 17940-4 05/25/2022 Blood Pressure 1: 161/82 Code: 8480-6 BMI: 24.3 Code: 46408-8 Heart Rate 1: 72 bpm Height: 5'3" Code: 8302-2 SpO2: 97% Temperature: 3 6.3 (C) / 97.3 (F) Weight: 137 lbs Code: 49438-0 03/19/2022 Blood Pressure 1: 140/82 Code: 8480-6 BMI: 23.2 Code: 12630-4 Heart Rate 1: 56 bpm Height: 5'3" Code: 8302-2 SpO2: 92% Temperature: 3 6.8 (C) / 98.2 (F) Weight: 131 lbs Code: 36855-4 02/16/2022 Blood Pressure 1: 154/82 Code: 8480-6 BMI: 23.6 Code: 18854-8 Heart Rate 1: 64 bpm Height: 5'3" Code: 8302-2 Respiratory Rate: 20 bpm SpO2: 96% Temperature: 36.8 (C) / 98.3 (F) Weight: 133 lbs Code: 59821-0 2022 Blood Pressure 1: 140/74 Code: 8480-6 BMI: 22.5 Code: 27736-6 Heart Rate 1: 54 bpm Height: 5'3" Code: 8302-2 Respiratory Rate: 18 bpm SpO2: 96% Temperature: 36.8 (C) / 98.2 (F) Weight: 127 lbs Code: 92304-1 01/27/2022 Blood Pressure 1: 144/80 Code: 8480-6 Heart Rate 1: 84 bpm Respiratory Rate: 22 bpm SpO2: 96% Temperature: 36.7 (C) / 98.0 (F) We ight: 134 lbs Code: 89353-6 10/28/2021 Blood Pressure 1: 152/82 Code: 8480-6 BMI: 22.8 Code: 57358-7 Heart Rate 1: 68 bpm Height: 5'4" Code: 8302-2 Respiratory Rate: 20 bpm SpO2: 98% Temperature: 36.8 (C) / 98.2 (F) Weight: 133 lbs Code: 63166-7 09/23/2021 Blood Pressure 1: 154/78 Code: 8480-6 Heart Rate 1: 66 bpm Respiratory Rate: 18 bpm SpO2: 97% Temperature: 36.2 (C) / 97.1 (F) We ight: 130 lbs Code: 32542-6 08/21/2021 Blood Pressure 1: 166/78 Code: 8480-6 Heart Rate 1: 76 bpm Respiratory Rate: 20 bpm SpO2: 98% Temperature: 36.5 (C) / 97.7 (F) We ight: 134 lbs Code: 56669-5 07/30/2021 Blood Pressure 1: 146/68 Code: 8480-6 Heart Rate 1: 76 bpm Respiratory Rate: 20 bpm SpO2: 98% Temperature: 36.7 (C) / 98.1 (F) We ight: 135 lbs Code: 43501-4 06/19/2021 Blood Pressure 1: 96/50 Code: 8480-6 Heart Rate 1: 72 bpm Respiratory Rate: 20 bpm SpO2: 97% Temperature: 36.8 (C) / 98.3 (F) Weight: 132 lbs Code: 92353-4 05/08/2021 Blood Pressure 1: 132/74 Code: 8480-6 Heart Rate 1: 72 bpm Respiratory Rate: 20 bpm SpO2: 99% Temperature: 36.8 (C) / 98.2 (F) We ight: 132 lbs Code: 53558-7 04/28/2021 Blood Pressure 1: 132/62 Code: 8480-6 Heart Rate 1: 88 bpm Respiratory Rate: 20 bpm SpO2: 98% Temperature: 36.6 (C) / 97.9 (F) We ight: 141 lbs Code: 82881-9 03/19/2021 Blood Pressure 1: 140/67 Code: 8480-6 Heart Rate 1: 71 bpm Respiratory Rate: 15 bpm SpO2: 99% Temperature: 36.3 (C) / 97.3 (F) We ight: 142 lbs Code: 19744-0 02/06/2021 Blood Pressure 1: 152/74 Code: 8480-6 Heart Rate 1: 80 bpm Respiratory Rate: 20 bpm SpO2: 96% Temperature: 36.7 (C) / 98.0 (F) We ight: 138 lbs Code: 83304-5 12/20/2020 Blood Pressure 1: 112/63 Code: 8480-6 Heart Rate 1: 80 bpm Respiratory Rate: 16 bpm SpO2: 99% Temperature: 36.4 (C) / 97.6 (F) We ight: 136 lbs Code: 67897-4 12/11/2020 Blood Pressure 1: 123/64 Code: 8480-6 BMI: 23.5 Code: 77065-8 Heart Rate 1: 68 bpm Height: 5'4" Code: 8302-2 Respiratory Rate: 15 bpm SpO2: 98% Temperature: 36.2 (C) / 97.2 (F) Weight: 137 lbs Code: 17204-0 11/11/2020 Blood Pressure 1: 154/82 Code: 8480-6 Heart Rate 1: 76 bpm SpO2: 99% Temperature: 36.9 (C) / 98.5 (F) Weight: 136 lbs Code: 28956-4 09/05/2020 Blood Pressure 1: 150/66 Code: 8480-6 Heart Rate 1: 80 bpm Respiratory Rate: 20 bpm SpO2: 99% Temperature: 37.0 (C) / 98.6 (F) We ight: 132 lbs Code: 92453-5 07/29/2020 Blood Pressure 1: 152/72 Code: 8480-6 Heart Rate 1: 84 bpm Respiratory Rate: 20 bpm SpO2: 97% Temperature: 36.8 (C) / 98.2 (F) We ight: 133 lbs Code: 58806-6 06/24/2020 Blood Pressure 1: 112/68 Code: 8480-6 Heart Rate 1: 72 bpm Respiratory Rate: 20 bpm SpO2: 98% Temperature: 36.8 (C) / 98.2 (F) We ight: 130 lbs Code: 27988-8 06/21/2020 Blood Pressure 1: 129/78 Code: 8480-6 He art Rate 1: 81 bpm 02/29/2020 Blood Pressure 1: 136/70 Code: 8480-6 Heart Rate 1: 76 bpm Respiratory Rate: 20 bpm SpO2: 98% Temperature: 36.4 (C) / 97.5 (F) We ight: 130 lbs Code: 11622-6 02/22/2020 Blood Pressure 1: 142/67 Code: 8480-6 Heart Rate 1: 64 bpm Respiratory Rate: 16 bpm SpO2: 98% Temperature: 36.5 (C) / 97.7 (F) We ight: 128 lbs Code: 41991-8 02/13/2020 Blood Pressure 1: 124/80 Code: 8480-6 Heart Rate 1: 61 bpm Respiratory Rate: 15 bpm SpO2: 97% Temperature: 36.2 (C) / 97.1 (F) We ight: Code: 92586-0 2020 Blood Pressure 1: 124/60 Code: 8480-6 Heart Rate 1: 92 bpm Respiratory Rate: 20 bpm SpO2: 97% Temperature: 36.4 (C) / 97.5 (F) We ight: 129 lbs Code: 37312-1 01/22/2020 Blood Pressure 1: 134/54 Code: 8480-6 Heart Rate 1: 72 bpm Respiratory Rate: 20 bpm SpO2: 97% Temperature: 37.1 (C) / 98.7 (F) We ight: 128 lbs Code: 77054-8 12/26/2019 Blood Pressure 1: 124/74 Code: 8480-6 Heart Rate 1: 64 bpm Respiratory Rate: 20 bpm SpO2: 98% Temperature: 37.0 (C) / 98.6 (F) We ight: 126 lbs Code: 45789-4 11/27/2019 Blood Pressure 1: 134/73 Code: 8480-6 Heart Rate 1: 116 bpm Respiratory Rate: 17 bpm SpO2: 97% Temperature: 36.7 (C) / 98.0 (F) We ight: 134 lbs Code: 96459-5 11/09/2019 Blood Pressure 1: 126/68 Code: 8480-6 Heart Rate 1: 92 bpm Respiratory Rate: 20 bpm SpO2: 97% Temperature: 37.2 (C) / 98.9 (F) We ight: 135 lbs Code: 09497-8 10/10/2019 Blood Pressure 1: 117/65 Code: 8480-6 Heart Rate 1: 66 bpm Respiratory Rate: 16 bpm SpO2: 99% Temperature: 36.7 (C) / 98.0 (F) We ight: 130 lbs Code: 88906-2 07/13/2019 Blood Pressure 1: 144/70 Code: 8480-6 BMI: 23.0 Code: 66889-8 Heart Rate 1: 92 bpm Height: 5'4" Code: 8302-2 Respiratory Rate: 20 bpm SpO2: 98% Temperature: 36.8 (C) / 98.2 (F) Weight: 133 lbs Code: 99662-6 05/18/2019 Blood Pressure 1: 122/60 Code: 8480-6 Heart Rate 1: 92 bpm Respiratory Rate: 20 bpm SpO2: 97% Temperature: 37.0 (C) / 98.6 (F) 05/17/2019 Blood Pressure 1: 122/74 Code: 8480-6 Heart Rate 1: 84 bpm Respiratory Rate: 20 bpm SpO2: 98% Temperature: 37.2 (C) / 99.0 (F) We ight: 130 lbs Code: 81454-3 04/24/2019 Blood Pressure 1: 124/64 Code: 8480-6 Heart Rate 1: 93 bpm SpO2: 99% Temperature: 36.8 (C) / 98.3 (F) Weight: 134 lbs Code: 65832-2 04/10/2019 Blood Pressure 1: 128/68 Code: 8480-6 Heart Rate 1: 73 bpm SpO2: 99% Temperature: 37.2 (C) / 98.9 (F) Weight: 134 lbs Code: 97499-4 02/16/2019 Blood Pressure 1: 128/64 Code: 8480-6 Heart Rate 1: 72 bpm Respiratory Rate: 20 bpm SpO2: 97% Temperature: 36.8 (C) / 98.2 (F) We ight: 129 lbs Code: 96646-6 12/20/2018 Blood Pressure 1: 152/70 Code: 8480-6 Heart Rate 1: 87 bpm Respiratory Rate: 20 bpm SpO2: 98% Temperature: 36.9 (C) / 98.5 (F) We ight: 127 lbs Code: 72918-4 12/14/2018 Blood Pressure 1: 122/68 Code: 8480-6 Heart Rate 1: 80 bpm Respiratory Rate: 18 bpm SpO2: 96% Temperature: 36.8 (C) / 98.2 (F) 12/12/2018 Blood Pressure 1: 140/68 Code: 8480-6 Heart Rate 1: 75 bpm Respiratory Rate: 18 bpm SpO2: 97% Temperature: 36.2 (C) / 97.1 (F) We ight: 127 lbs Code: 57797-6 10/19/2018 Blood Pressure 1: 126/64 Code: 8480-6 Heart Rate 1: 88 bpm Respiratory Rate: 20 bpm SpO2: 96% Temperature: 37.1 (C) / 98.8 (F) We ight: 123 lbs Code: 96157-9 10/13/2018 Blood Pressure 1: 132/62 Code: 8480-6 He art Rate 1: 86 bpm 10/05/2018 Blood Pressure 1: 114/58 Code: 8480-6 Heart Rate 1: 72 bpm SpO2: 98% Temperature: 36.9 (C) / 98.5 (F) Weight: 120 lbs Code: 60638-1 09/28/2018 Blood Pressure 1: 126/64 Code: 8480-6 Heart Rate 1: 76 bpm Respiratory Rate: 20 bpm SpO2: 97% Temperature: 37.2 (C) / 98.9 (F) 09/26/2018 Blood Pressure 1: 132/66 Code: 8480-6 Heart Rate 1: 79 bpm Respiratory Rate: 20 bpm SpO2: 97% Temperature: 37.1 (C) / 98.7 (F) We ight: 119 lbs Code: 88118-1 09/23/2018 Blood Pressure 1: 112/64 Code: 8480-6 Heart Rate 1: 85 bpm Respiratory Rate: 20 bpm SpO2: 95% Temperature: 36.9 (C) / 98.5 (F) We ight: 119 lbs 8 oz Code: 36623-9 09/22/2018 Blood Pressure 1: 116/58 Code: 8480-6 Heart Rate 1: 88 bpm Respiratory Rate: 20 bpm SpO2: 96% Temperature: 37.9 (C) / 100. 2 (F) 09/20/2018 Blood Pressure 1: 136/70 Code: 8480-6 Heart Rate 1: 109 bpm Respiratory Rate: 20 bpm SpO2: 98% Temperature: 37.0 (C) / 98.6 (F) We ight: 122 lbs Code: 70080-4 09/15/2018 Blood Pressure 1: 134/62 Code: 8480-6 Heart Rate 1: 68 bpm Respiratory Rate: 20 bpm SpO2: 97% Temperature: 36.8 (C) / 98.2 (F) We ight: 124 lbs Code: 98588-0 09/08/2018 Blood Pressure 1: 132/62 Code: 8480-6 Heart Rate 1: 83 bpm Respiratory Rate: 18 bpm SpO2: 94% Temperature: 36.9 (C) / 98.4 (F) We ight: 123 lbs Code: 67919-2 09/05/2018 Blood Pressure 1: 142/68 Code: 8480-6 Heart Rate 1: 70 bpm Respiratory Rate: 18 bpm SpO2: 98% Temperature: 37.0 (C) / 98.6 (F) We ight: 123 lbs Code: 57294-7 03/18/2018 Blood Pressure 1: 132/62 Code: 8480-6 Heart Rate 1: 71 bpm Respiratory Rate: 18 bpm SpO2: 95% Temperature: 36.7 (C) / 98.1 (F) We ight: 126 lbs Code: 35877-7 03/03/2018 Blood Pressure 1: 148/60 Code: 8480-6 BMI: 22.5 Code: 44980-2 Heart Rate 1: 72 bpm Height: 5'4" Code: 8302-2 Respiratory Rate: 20 bpm SpO2: 96% Temperature: 36.9 (C) / 98.4 (F) Weight: 130 lbs Code: 70239-8 02/16/2018 Blood Pressure 1: 154/70 Code: 8480-6 BMI: 21.8 Code: 14125-8 Heart Rate 1: 72 bpm Height: 5'4" Code: 8302-2 Respiratory Rate: 20 bpm SpO2: 97% Temperature: 36.9 (C) / 98.5 (F) Weight: 126 lbs Code: 89412-5 01/26/2018 Blood Pressure 1: 126/78 Code: 8480-6 BMI: 21.8 Code: 99265-3 Heart Rate 1: 80 bpm Height: 5'4" Code: 8302-2 Respiratory Rate: 20 bpm SpO2: 97% Temperature: 36.6 (C) / 97.8 (F) Weight: 126 lbs Code: 54140-4 11/30/2017 Blood Pressure 1: 168/78 Code: 8480-6 BMI: 22.1 Code: 24363-2 Heart Rate 1: 64 bpm Height: 5'4" Code: 8302-2 Respiratory Rate: 20 bpm SpO2: 96% Temperature: 37.0 (C) / 98.6 (F) Weight: 128 lbs Code: 18629-8 10/20/2017 Blood Pressure 1: 146/70 Code: 8480-6 BMI: 22.1 Code: 99301-1 Heart Rate 1: 72 bpm Height: 5'4" Code: 8302-2 Respiratory Rate: 20 bpm SpO2: 97% Temperature: 36.7 (C) / 98.1 (F) Weight: 128 lbs Code: 43866-2 08/30/2017 Blood Pressure 1: 134/68 Code: 8480-6 BMI: 22.5 Code: 08950-3 Heart Rate 1: 72 bpm Height: 5'4" Code: 8302-2 Respiratory Rate: 20 bpm Temperatu re: 36.9 (C) / 98.4 (F) Weight: 130 lbs Code: 55417-3 05/25/2017 Blood Pressure 1: 144/60 Code: 8480-6 BMI: 22.3 Code: 56970-8 Heart Rate 1: 64 bpm Height: 5'4" Code: 8302-2 Respiratory Rate: 20 bpm SpO2: 95% Temperature: 36.8 (C) / 98.2 (F) Weight: 129 lbs Code: 51418-3 03/22/2017 Blood Pressure 1: 124/70 Code: 8480-6 BMI: 21.4 Code: 99232-4 Heart Rate 1: 64 bpm Height: 5'4" Code: 8302-2 Respiratory Rate: 20 bpm Temperatu re: 36.9 (C) / 98.4 (F) Weight: 124 lbs Code: 47314-0 03/08/2017 Blood Pressure 1: 142/78 Code: 8480-6 He art Rate 1: 64 bpm 01/18/2017 Blood Pressure 1: 136/64 Code: 8480-6 BMI: 21.9 Code: 27286-7 Heart Rate 1: 68 bpm Height: 5'4" Code: 8302-2 Respiratory Rate: 20 bpm SpO2: 96% Temperature: 36.8 (C) / 98.2 (F) Weight: 127 lbs Code: 41873-6 01/11/2017 Blood Pressure 1: 142/60 Code: 8480-6 Heart Rate 1: 60 bpm SpO2: 96% 01/04/2017 Blood Pressure 1: 148/70 Code: 8480-6 He art Rate 1: 68 bpm 12/28/2016 Blood Pressure 1: 132/64 Code: 8480-6 BMI: 21.4 Code: 83229-8 Heart Rate 1: 68 bpm Height: 5'4" Code: 8302-2 SpO2: 98% Weight: 124 lb s Code: 12594-7 12/24/2016 Blood Pressure 1: 138/62 Code: 8480-6 He art Rate 1: 74 bpm 12/16/2016 Blood Pressure 1: 124/64 Code: 8480-6 BMI: 21.4 Code: 10994-8 Heart Rate 1: 66 bpm Height: 5'4" Code: 8302-2 Respiratory Rate: 20 bpm SpO2: 97% Temperature: 36.8 (C) / 98.2 (F) Weight: 124 lbs Code: 10472-7 11/18/2016 Blood Pressure 1: 156/64 Code: 8480-6 BMI: 22.3 Code: 14654-7 Heart Rate 1: 64 bpm Height: 5'4" Code: 8302-2 Respiratory Rate: 20 bpm SpO2: 98% Temperature: 36.6 (C) / 97.8 (F) Weight: 129 lbs Code: 14183-8 11/04/2016 Blood Pressure 1: 112/48 Code: 8480-6 BMI: 21.6 Code: 69052-3 Heart Rate 1: 70 bpm Height: 5'4" Code: 8302-2 Respiratory Rate: 22 bpm SpO2: 98% Temperature: 36.4 (C) / 97.6 (F) Weight: 125 lbs Code: 47437-3 10/27/2016 Blood Pressure 1: 118/54 Code: 8480-6 BMI: 21.8 Code: 31610-9 Heart Rate 1: 64 bpm Height: 5'4" Code: 8302-2 Respiratory Rate: 20 bpm SpO2: 97% Temperature: 36.9 (C) / 98.4 (F) Weight: 126 lbs Code: 94811-1 10/13/2016 Blood Pressure 1: 138/82 Code: 8480-6 Heart Rate 1: 66 bpm Height: Code: 8302-2 Respiratory Rate: 20 bpm SpO2: 97% Temperature: 36 .6 (C) / 97.9 (F) Weight: Code: 22299-5 10/08/2016 Blood Pressure 1: 124/56 Code: 8480-6 BMI: 22.8 Code: 33653-0 Heart Rate 1: 76 bpm Height: 5'4" Code: 8302-2 Respiratory Rate: 20 bpm SpO2: 96% Temperature: 36.8 (C) / 98.3 (F) Weight: 132 lbs Code: 91696-0 10/05/2016 Blood Pressure 1: 126/58 Code: 8480-6 BMI: 22.6 Code: 19680-5 Heart Rate 1: 60 bpm Height: 5'4" Code: 8302-2 Respiratory Rate: 20 bpm Temperatu re: 36.7 (C) / 98.1 (F) Weight: 131 lbs Code: 06548-5 08/25/2016 Blood Pressure 1: 130/64 Code: 8480-6 Heart Rate 1: 60 bpm Respiratory Rate: 20 bpm SpO2: 96% Temperature: 37.0 (C) / 98.6 (F) We ight: 136 lbs Code: 80541-7 07/28/2016 Blood Pressure 1: 104/78 Code: 8480-6 BMI: 23.5 Code: 75088-9 Heart Rate 1: 82 bpm Height: 5'4" Code: 8302-2 Respiratory Rate: 24 bpm SpO2: 98% Temperature: 36.8 (C) / 98.2 (F) Weight: 136 lbs Code: 35599-2 06/25/2016 Blood Pressure 1: 152/66 Code: 8480-6 He art Rate 1: 60 bpm 06/23/2016 Blood Pressure 1: 198/102 Code: 8480-6 Heart Rat e 1: 62 bpm Respiratory Rate: 20 bpm SpO2: 95% Temperature: 36.6 (C) / 97.9 (F) We ight: 137 lbs Code: 96834-3 06/03/2016 Blood Pressure 1: 154/86 Code: 8480-6 BMI: 23.4 Code: 69947-7 Heart Rate 1: 56 bpm Height: 5'6" Code: 8302-2 Respiratory Rate: 20 bpm SpO2: 96% Temperature: 36.7 (C) / 98.1 (F) Weight: 143 lbs Code: 95462-1 05/26/2016 Blood Pressure 1: 124/68 Code: 8480-6 BMI: 23.6 Code: 16257-3 Heart Rate 1: 76 bpm Height: 5'6" Code: 8302-2 Respiratory Rate: 20 bpm SpO2: 96% Temperature: 36.2 (C) / 97.2 (F) Weight: 144 lbs Code: 44398-7 05/20/2016 Blood Pressure 1: 156/58 Code: 8480-6 BMI: 24.5 Code: 21960-1 Heart Rate 1: 64 bpm Height: 5'4" Code: 8302-2 Respiratory Rate: 20 bpm Temperatu re: 36.9 (C) / 98.4 (F) Weight: 142 lbs Code: 08627-9 03/19/2016 Blood Pressure 1: 144/74 Code: 8480-6 BMI: 25.9 Code: 04649-9 Heart Rate 1: 76 bpm Height: 5'4" Code: 8302-2 Respiratory Rate: 20 bpm Temperatu re: 36.8 (C) / 98.2 (F) Weight: 150 lbs Code: 39669-0 01/13/2016 Blood Pressure 1: 152/72 Code: 8480-6 BMI: 26.8 Code: 92641-7 Heart Rate 1: 64 bpm Height: 5'4" Code: 8302-2 Respiratory Rate: 20 bpm Temperatu re: 36.7 (C) / 98.1 (F) Weight: 155 lbs Code: 16049-1 12/12/2015 Blood Pressure 1: 128/68 Code: 8480-6 BMI: 26.3 Code: 88463-8 Heart Rate 1: 64 bpm Height: 5'4" Code: 8302-2 Respiratory Rate: 20 bpm Temperatu re: 36.8 (C) / 98.3 (F) Weight: 152 lbs Code: 46830-8 12/05/2015 Blood Pressure 1: 174/88 Code: 8480-6 BMI: 26.8 Code: 99623-9 Heart Rate 1: 68 bpm Height: 5'4" Code: 8302-2 Respiratory Rate: 20 bpm Temperatu re: 36.8 (C) / 98.2 (F) Weight: 155 lbs Code: 06696-7 11/27/2015 Blood Pressure 1: 188/82 Code: 8480-6 He art Rate 1: 70 bpm 10/21/2015 Blood Pressure 1: 148/80 Code: 8480-6 BMI: 27.5 Code: 18998-6 Heart Rate 1: 64 bpm Height: 5'4" Code: 8302-2 Respiratory Rate: 20 bpm Temperatu re: 36.7 (C) / 98.1 (F) Weight: 159 lbs Code: 36563-4 10/17/2015 Blood Pressure 1: 140/74 Code: 8480-6 BMI: 27.5 Code: 72134-7 Heart Rate 1: 80 bpm Height: 5'4" Code: 8302-2 Respiratory Rate: 20 bpm Temperatu re: 36.8 (C) / 98.2 (F) Weight: 159 lbs Code: 27184-5 10/07/2015 Blood Pressure 1: 174/80 Code: 8480-6 BMI: 27.5 Code: 59654-0 Heart Rate 1: 82 bpm Height: 5'4" Code: 8302-2 Respiratory Rate: 20 bpm SpO2: 97% Temperature: 36.7 (C) / 98.0 (F) Weight: 159 lbs Code: 90857-8 09/03/2015 Blood Pressure 1: 146/68 Code: 8480-6 BMI: 27.3 Code: 48836-0 Heart Rate 1: 82 bpm Height: 5'4" Code: 8302-2 Respiratory Rate: 20 bpm SpO2: 97% Temperature: 36.6 (C) / 97.9 (F) Weight: 158 lbs Code: 49473-6 08/01/2015 Blood Pressure 1: 144/78 Code: 8480-6 BMI: 26.9 Code: 95582-6 Heart Rate 1: 64 bpm Height: 5'3" Code: 8302-2 Respiratory Rate: 20 bpm Temperatu re: 36.6 (C) / 97.9 (F) Weight: 154 lbs Code: 09051-9 06/27/2015 Blood Pressure 1: 152/76 Code: 8480-6 BMI: 26.7 Code: 64572-0 Heart Rate 1: 80 bpm Height: 5'3" Code: 8302-2 Respiratory Rate: 20 bpm Temperatu re: 36.7 (C) / 98.1 (F) Weight: 153 lbs Code: 59463-1 Functional Status No Functional Status data Reason [...] Encounter Performer Location Location Address Codes Date ([id number]) OFFICE/OUTPATIENT VISIT EST Diagnosis: Insomnia[ICD10: G47.00] Diagnosis: Other malaise and fatigue[ICD10: R53.81] Diagnosis: 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] Cony POOLE [address] [address] CPT- 4: 97087 10/01/2022 ([id number]) OFFICE/OUTPATIENT VISIT EST Diagnosis: Cervicalgia[ICD10: M54.2] Diagnosis: Labile hypertension[ICD10: R09.89] Diagnosis: Paroxysmal atrial fibrillation[ICD10: I48.0] Diagnosis: Hypothyroidism, unspecified[ICD10: E03.9] Cony POOLE [address] [address] CPT- 4: 40060 08/25/2022 ([id number]) OFFICE/OUTPATIENT VISIT EST Diagnosis: Dyspnea on exertion[ICD10: R06.09] Diagnosis: Chronic atrial fibrillation[ICD10: I48.20] Diagnosis: Essential hypertension[ICD10: I10] Diagnosis: COPD (chronic obstructive pulmonary disease)[ICD10: J44.9] Cony POOLE [address] [address] CPT-4: 52985 08/11/2022 ([id number]) OFFICE/OUTPATIENT VISIT EST Diagnosis: Essential (primary) hypertension[ICD10: I10] Diagnosis: Edema[ICD10: R60.9] Diagnosis: Bradycardia[ICD10: R00.1] Diagnosis: Atrial fibrillation[ICD10: I48.91] Cony POOLE DO [address] [address] CPT-4: 21297 07/28/2022 ([id number]) OFFICE/OUTPATIENT VISIT EST Diagnosis: URI (upper respiratory infection)[ICD10: J06.9] Diagnosis: Chronic airway obstruction, not elsewhere classified[ICD10: J44.9] Cony POOLE DO [address] [address] CPT-4: 75660 07/14/2022 ([id number]) OFFICE/OUTPATIENT VISIT EST Diagnosis: Atrial fibrillation[ICD10: I48.91] Diagnosis: Essential (primary) hypertension[ICD10: I10] Diagnosis: Hypothyroidism[ICD10: E03.9] Cony POOLE DO [address] [address] CPT-4: 42771 06/23/2022 ([id number]) OFFICE/OUTPATIENT VISIT EST Diagnosis: Essential (primary) hypertension[ICD10: I10] Diagnosis: Chronic atrial fibrillation[ICD10: I48.20] Diagnosis: Chronic airway obstruction, not elsewhere classified[ICD10: J44.9] Diagnosis: Hypothyroidism[ICD10: E03.9] Cony POOLE DO [address] [address] CPT-4: 95896 05/25/2022 ([id number]) OFFICE/OUTPATIENT VISIT EST Diagnosis: COPD (chronic obstructive pulmonary disease)[ICD10: J44.9] Diagnosis: Essential hypertension[ICD10: I10] Diagnosis: Hypothyroidism[ICD10: E03.9] Diagnosis: Allergic rhinitis[ICD10: J30.9] Diagnosis: Unsteady gait[ICD10: R26.81] Cony POOLE DO [address] [address] CPT-4: 34302 03/19/2022 ([id number]) OFFICE/OUTPATIENT VISIT EST Diagnosis: COPD exacerbation[ICD10: J44.1] Diagnosis: COPD (chronic obstructive pulmonary disease)[ICD10: J44.9] Cony POOLE DO [address] [address] CPT-4: 38993 02/16/2022 ([id number]) OFFICE/OUTPATIENT VISIT EST Diagnosis: COPD exacerbation[ICD10: J44.1] Cony POOLE DO [address] [address] CPT-4: 06208 2022 ([id number]) OFFICE/OUTPATIENT VISIT EST Diagnosis: Contact with and (suspected) exposure to other viral communicable diseases[ICD10: Z20.828] Diagnosis: COPD with acute lower respiratory infection[ICD10: J44.0] Keeley POOLE [address] [address] CPT-4: 47323 01/27/2022 ([id number]) OFFICE/OUTPATIENT VISIT EST Diagnosis: Essential (primary) hypertension[ICD10: I10] Diagnosis: Hypothyroidism, unspecified[ICD10: E03.9] Diagnosis: Chronic obstructive pulmonary disease, unspecified[ICD10: J44.9] Cony POOLE [address] [address] CPT-4: 83370 10/28/2021 ([id number]) OFFICE/OUTPATIENT VISIT EST Diagnosis: Essential (primary) hypertension[ICD10: I10] Diagnosis: Atrial fibrillation[ICD10: I48.91] Diagnosis: Edema[ICD10: R60.9] Diagnosis: Mixed hyperlipidemia[ICD10: E78.2] Diagnosis: Hypothyroidism[ICD10: E03.9] Diagnosis: Dyspnea[ICD10: R06.00] Diagnosis: Allergic rhinitis, unspecified[ICD10: J30.9] Cnoy HayesMelina NGOC DO [address] [address] CPT- 4: 67662 09/23/2021 ([id number]) OFFICE/OUTPATIENT VISIT EST Diagnosis: Essential (primary) hypertension[ICD10: I10] Diagnosis: Edema[ICD10: R60.9] Diagnosis: Stasis dermatitis[ICD10: I87.2] Diagnosis: Dyspnea[ICD10: R06.00] Cony Bowmanbonygloria HayesMelina LISA Albarran DO [address] [address] CPT-4: 91491 08/21/2021 ([id number]) OFFICE/OUTPATIENT VISIT EST Diagnosis: Essential (primary) hypertension[ICD10: I10] Diagnosis: Atrial fibrillation[ICD10: I48.91] Diagnosis: Edema[ICD10: R60.9] Cony Bowmanlea CONY AbigailMelina NGOC [address] [address] CPT-4: 23783 07/30/19 ([id number]) OFFICE/OUTPATIENT VISIT EST Diagnosis: Essential hypertension[ICD10: I10] Diagnosis: 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] Diagnosis: Reactive airway disease[ICD10: J45.909] Diagnosis: Sciatica[ICD10: M54.30] Cony Colbylea CONY AbigailMelina MIGUEL A GLORIA [address] [address] CPT-4: 11321 06/19/2021 ([id number]) NURSE/OUTPATIENT VISIT EST Diagnosis: Urinary tract infection[ICD10: N39.0] Cony Bowmanlea DANTEMARY ZARAGOZA AbigailMelina NGOC [address] [address] CPT-4: 40913 05/12/2021 ([id number]) OFFICE/OUTPATIENT VISIT EST Diagnosis: Edema leg[ICD10: R60.0] Diagnosis: Recurrent UTI[ICD10: N39.0] 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] Conyjeannette Bowmanlea CONY [facility] [address] [place] [address] CPT-4: 71646 05/08/2021 ([id number]) OFFICE/OUTPATIENT VISIT EST Diagnosis: Cervical radiculopathy[ICD10: M54.12] Diagnosis: 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] Cony POOLE DO [facility] [address] [place] [address] CPT- 4: 02941 04/28/2021 ([id number]) OFFICE/OUTPATIENT VISIT EST Diagnosis: Other fatigue[ICD10: R53.83] Diagnosis: Hypothyroidism[ICD10: E03.9] Diagnosis: Vitamin B12 deficiency anemia, unspecified[ICD10: D51.9] Keeley POOLE DO [address] [address] CPT-4: 90086 03/19/2021 ([id number]) NURSE/OUTPATIENT VISIT EST Diagnosis: Encounter for immunization[ICD10: Z23] Cony GRADYER [address] [address] CPT-4: 31799 02/27/2021 ([id number]) OFFICE/OUTPATIENT VISIT EST Diagnosis: Atrial fibrillation[ICD10: I48.91] Diagnosis: Essential (primary) hypertension[ICD10: I10] Diagnosis: Hypothyroidism[ICD10: E03.9] Diagnosis: Lymphadenopathy of right cervical region[ICD10: R59.0] Diagnosis: Osteopenia[ICD10: M85.80] Cony WAY [address] [address] CPT-4: 58104 02/06/2021 ([id number]) OFFICE/OUTPATIENT VISIT EST Diagnosis: Skin lesion of right leg[ICD10: L98.9] Keleey BOWMANNDER [facility] [address] [place] [address] CPT-4: 26641 12/20/2020 ([id number]) OFFICE/OUTPATIENT VISIT EST Diagnosis: Nontraumatic blister of skin[ICD10: R23.8] Keeley POOLE DO [address] [address] CPT- 4: 33376 12/11/2020 ([id number]) OFFICE/OUTPATIENT VISIT EST Diagnosis: Nocturia[ICD10: R35.1] Diagnosis: Essential hypertension[ICD10: I10] Conydella OCONNELL DEVIN POOLE DO [address] [address] CPT-4: 68297 11/11/2020 ([id number]) OFFICE/OUTPATIENT VISIT EST Diagnosis: Essential hypertension[ICD10: I10] Diagnosis: Paroxysmal atrial fibrillation[ICD10: I48.0] Diagnosis: Hypothyroidism[ICD10: E03.9] Cony Colbylea CONY Jeanine POOLE DO [address] [address] CPT-4: 93345 07/29/2020 ([id number]) OFFICE/OUTPATIENT VISIT EST Diagnosis: Dizziness and giddiness[ICD10: R42] Diagnosis: Essential hypertension[ICD10: I10] Conydella OCONNELL DEVIN POOLE DO [address] [address] CPT-4: 57392 06/24/2020 ([id number]) OFFICE/OUTPATIENT VISIT EST Diagnosis: Weakness[ICD10: R53.1] Apoorva POOLE [address] [address] CPT-4: 52774 06/21/19 21 ([id number]) OFFICE/OUTPATIENT VISIT EST Diagnosis: URI (upper respiratory infection)[ICD10: J06.9] Apoorva Lindaimaldi [facility] [address] [place] [address] CPT-4: 57988 03/19/2020 ([id number]) OFFICE/OUTPATIENT VISIT EST Diagnosis: Essential (primary) hypertension[ICD10: I10] Diagnosis: Atrial fibrillation status post cardioversion[ICD10: I48.91] Diagnosis: Right upper lobe pulmonary nodule[ICD10: R91.1] Cony AVERY SMelina ORENDER DO [address] [address] CPT- 4: 30740 02/29/2020 ([id number]) OFFICE/OUTPATIENT VISIT EST Diagnosis: Stasis dermatitis[ICD10: I87.2] Apoorva BOWMANNDER DO [address] [address] CPT-4: 08818 02/22/2020 ([id number]) NURSE/OUTPATIENT VISIT EST Diagnosis: Urinary tract infection, site not specified[ICD10: N39.0] Cony Solorzano ORENDER DO [address] [address] CPT-4: 43016 02/20/2020 ([id number]) OFFICE/OUTPATIENT VISIT EST Diagnosis: Urinary tract infection[ICD10: N39.0] Apoorva ZARAGOZA SMelina BOWMANNDER DO [address] [address] CPT-4: 96580 02/13/2020 ([id number]) OFFICE/OUTPATIENT VISIT EST Diagnosis: Neck pain[ICD10: M54.2] Diagnosis: Muscle spasm[ICD10: M62.838] Cony AVERY SMelina BOWMANNDER DO [address] [address] CPT-4: 15764 2020 ([id number]) OFFICE/OUTPATIENT VISIT EST Diagnosis: Atrial fibrillation[ICD10: I48.91] Diagnosis: Essential hypertension[ICD10: I10] Diagnosis: Right wrist pain[ICD10: M25.531] Cony AVERY SMelina BOWMANNDER DO [address] [address] CPT-4: 00085 01/22/2020 ([id number]) OFFICE/OUTPATIENT VISIT EST Diagnosis: Paroxysmal atrial fibrillation[ICD10: I48.0] Diagnosis: Essential hypertension[ICD10: I10] Cony Bowmanbonygloria [facility] [address] [place] [address] CPT-4: 77023 12/26/2019 ([id number]) OFFICE/OUTPATIENT VISIT EST Diagnosis: Lung nodule[ICD10: R91.1] Diagnosis: CHF (congestive heart failure)[ICD10: I50.9] Diagnosis: Atrial fibrillation[ICD10: I48.91] Apoorva BOWMANNDER DO [address] [address] CPT-4: 24344 11/27/2019 ([id number]) OFFICE/OUTPATIENT VISIT EST Diagnosis: Urinary tract infection[ICD10: N39.0] Diagnosis: Hypotension[ICD10: I95.9] Cony BOWMAN NDER DO [address] [address] CPT-4: 06810 11/09/2019 ([id number]) OFFICE/OUTPATIENT VISIT EST Diagnosis: Left leg swelling[ICD10: M79.89] Cony Solorzano ORENDER DO [address] [address] CPT-4: 22251 10/10/2019 ([id number]) OFFICE/OUTPATIENT VISIT EST Diagnosis: Muscle spasm[ICD10: M62.838] Cony Solorzano ORENDER DO [address] [address] CPT-4: 86040 08/25/2019 ([id number]) OFFICE/OUTPATIENT VISIT EST Diagnosis: Low back pain[ICD10: M54.5] Diagnosis: Sciatica of left side[ICD10: M54.32] Cony Solorzano ORENDER DO [address] [address] CPT-4: 58600 07/13/2019 ([id number]) OFFICE/OUTPATIENT VISIT EST Diagnosis: Pneumonia due to infectious organism[ICD10: J18.9] Cony HayesMelina OREND[facility] DO [facility] [address] [place] [phone] CPT- 4: 00340 05/18/2019 ([id number]) OFFICE/OUTPATIENT VISIT EST Diagnosis: Pneumonia due to infectious organism[ICD10: J18.9] Cony POOLE DO [address] [address] CPT- 4: 43483 05/17/2019 ([id number]) NURSE/OUTPATIENT VISIT EST Diagnosis: Urinary tract infection[ICD10: N39.0] Cony POOLE DO [address] [address] CPT-4: 29890 05/08/2019 ([id number]) NURSE/OUTPATIENT VISIT EST Diagnosis: Acute pharyngitis[ICD10: J02.9] Diagnosis: Altered taste[ICD10: R43.2] Cony CONDON DO [address] [address] CPT-4: 58012 05/08/2019 ([id number]) OFFICE/OUTPATIENT VISIT EST Diagnosis: Urinary tract infection, site not specified[ICD10: N39.0] Diagnosis: Stomatitis and mucositis with change of taste[ICD10: K12.1] Cony POOLE DO [address] [address] CPT-4: 36890 04/24/2019 ([id number]) NURSE/OUTPATIENT VISIT EST Diagnosis: Hematuria[ICD10: R31.9] Cony CASTRO DO [address] [address] CPT-4: 58099 04/21/2019 ([id number]) OFFICE/OUTPATIENT VISIT EST Diagnosis: Oral mucositis (ulcerative), unspecified[ICD10: K12.30] Diagnosis: Stomatitis and mucositis with change of taste[ICD10: K12.1] Cony POOLE DO [address] [address] CPT-4: 09298 04/10/2019 ([id number]) NURSE/OUTPATIENT VISIT EST Diagnosis: FLU VACCINE[ICD10: Z23] [facility] [address] [place] [phone] CPT-4: 10459 03/02/2019 ([id number]) OFFICE/OUTPATIENT VISIT EST Diagnosis: Essential (primary) hypertension[ICD10: I10] Diagnosis: Other fatigue[ICD10: R53.83] Diagnosis: Hypothyroidism, unspecified[ICD10: E03.9] Diagnosis: Nocturia[ICD10: R35.1] [facility] [address] [place] [address] CPT-4: 61367 02/16/2019 ([id number]) NURSE/OUTPATIENT VISIT EST Diagnosis: Essential (primary) hypertension[ICD10: I10] Cony POOLE DO [address] [address] CPT- 4: 69126 01/24/2019 ([id number]) OFFICE/OUTPATIENT VISIT EST Diagnosis: Acute upper respiratory infection, unspecified[ICD10: J06.9] Apoorva [facility] [address] [place] [address] CPT-4: 24926 12/20/2018 ([id number]) OFFICE/OUTPATIENT VISIT EST Diagnosis: Paroxysmal atrial fibrillation[ICD10: I48.0] Diagnosis: Other fatigue[ICD10: R53.83] Diagnosis: Essential (primary) hypertension[ICD10: I10] Diagnosis: Hypothyroidism, unspecified[ICD10: E03.9] [facility]y [facility] [address] [place] [address] CPT- 4: 76271 12/12/2018 ([id number]) OFFICE/OUTPATIENT VISIT EST Diagnosis: Essential (primary) hypertension[ICD10: I10] Diagnosis: Allergic rhinitis due to pollen[ICD10: J30.1] Cony P[facility] [address] [place] [address] CPT- 4: 39212 10/19/2018 ([id number]) OFFICE/OUTPATIENT VISIT EST Diagnosis: Allergic rhinitis due to pollen[ICD10: J30.1] Diagnosis: Essential (primary) hypertension[ICD10: I10] Cony POOLE [address] [address] CPT- 4: 69953 10/05/2018 ([id number]) OFFICE/OUTPATIENT VISIT EST Diagnosis: Allergic rhinitis due to pollen[ICD10: J30.1] Diagnosis: Other fatigue[ICD10: R53.83] Diagnosis: Hematuria, unspecified[ICD10: R31.9] Cony POOLE [address] [address] CPT-4: 33775 09/28/2018 ([id number]) OFFICE/OUTPATIENT VISIT EST Diagnosis: Allergic rhinitis due to pollen[ICD10: J30.1] Diagnosis: Cough[ICD10: R05] Diagnosis: Dermatitis, unspecified[ICD10: L30.9] Diagnosis: Slow transit constipation[ICD10: K59.01] Cony POOLE [address] [address] CPT- 4: 52602 09/26/2018 ([id number]) OFFICE/OUTPATIENT VISIT EST Diagnosis: Acute bronchitis, unspecified[ICD10: J20.9] Diagnosis: Other specified respiratory disorders[ICD10: J98.8] Merry Justiceyaw POOLE DO [address] [address] CPT- 4: 12650 09/23/2018 ([id number]) OFFICE/OUTPATIENT VISIT EST Diagnosis: Acute bronchitis, unspecified[ICD10: J20.9] Diagnosis: Fever, unspecified[ICD10: R50.9] Cony POOLE [address] [address] CPT-4: 77904 09/22/2018 ([id number]) OFFICE/OUTPATIENT VISIT EST Diagnosis: Tachycardia, unspecified[ICD10: R00.0] Diagnosis: Dysuria[ICD10: R30.0] Diagnosis: Personal history of urinary (tract) infections[ICD10: Z87.440] Merry POOLE DO [address] [address] CPT-4: 91690 09/20/2018 ([id number]) OFFICE/OUTPATIENT VISIT EST Diagnosis: Other fatigue[ICD10: R53.83] Diagnosis: Hypothyroidism, unspecified[ICD10: E03.9] Cony POOLE DO [address] [address] CPT- 4: 80848 09/15/2018 ([id number]) NURSE/OUTPATIENT VISIT EST Diagnosis: Urinary tract infection, site not specified[ICD10: N39.0] Cony POOLE DO [address] [address] CPT-4: 57607 09/14/2018 ([id number]) OFFICE/OUTPATIENT VISIT EST Diagnosis: Chronic fatigue, unspecified[ICD10: R53.82] Diagnosis: Essential (primary) hypertension[ICD10: I10] Diagnosis: Hypothyroidism, unspecified[ICD10: E03.9] Diagnosis: Paroxysmal atrial fibrillation[ICD10: I48.0] Cony POOLE DO [address] [address] CPT- 4: 22288 09/08/2018 ([id number]) OFFICE/OUTPATIENT VISIT EST Diagnosis: Dysuria[ICD10: R30.0] Diagnosis: Personal history of urinary (tract) infections[ICD10: Z87.440] Merry POOLE DO [address] [address] CPT-4: 38275 09/05/2018 ([id number]) NURSE/OUTPATIENT VISIT EST Diagnosis: Essential (primary) hypertension[ICD10: I10] Diagnosis: Edema, unspecified[ICD10: R60.9] Cony POOLE [address] [address] CPT-4: 36698 04/20/2018 ([id number]) OFFICE/OUTPATIENT VISIT EST Diagnosis: FLU VACCINE[ICD10: Z23] Diagnosis: Hypothyroidism, unspecified[ICD10: E03.9] Diagnosis: Essential (primary) hypertension[ICD10: I10] Diagnosis: Localized edema[ICD10: R60.0] Cony POOLE DO [address] [address] CPT-4: 02548 03/03/2018 ([id number]) OFFICE/OUTPATIENT VISIT EST Diagnosis: Atopic dermatitis, unspecified[ICD10: L20.9] Apoorva POOLE DO [address] [address] CPT- 4: 74813 02/16/2018 ([id number]) OFFICE/OUTPATIENT VISIT EST Diagnosis: Pressure ulcer of right heel, stage 1[ICD10: L89.611] Diagnosis: Other fatigue[ICD10: R53.83] Apoorva POOLE DO [address] [address] CPT-4: 94237 01/26/2018 OFFICE/OUTPATIENT VISIT EST Diagnosis: Hypothyroidism, unspecified[ICD10: E03.9] Diagnosis: Essential (primary) hypertension[ICD10: I10] Diagnosis: Localized edema[ICD10: R60.0] Diagnosis: Other fatigue[ICD10: R53.83] Cony POOLE DO [address] [address] CPT-4: 84320 11/30/2017 ([id number]) OFFICE/OUTPATIENT VISIT EST Diagnosis: Other seborrheic keratosis[ICD10: L82.1] Cony POOLE DO [address] [address] CPT- 4: 05699 11/04/2017 ([id number]) OFFICE/OUTPATIENT VISIT EST Diagnosis: Achilles tendinitis, right leg[ICD10: M76.61] Apoorva POOLE DO [address] [place] [address] CPT- 4: 86096 10/20/2017 ([id number]) OFFICE/OUTPATIENT VISIT EST Diagnosis: Essential (primary) hypertension[ICD10: I10] Diagnosis: Hypothyroidism, unspecified[ICD10: E03.9] Diagnosis: Weakness[ICD10: R53.1] Cony Albarran [address] [address] CPT-4: 06226 08/30/2017 ([id number]) OFFICE/OUTPATIENT VISIT EST Diagnosis: Hypothyroidism, unspecified[ICD10: E03.9] Diagnosis: Essential (primary) hypertension[ICD10: I10] Diagnosis: Paroxysmal atrial fibrillation[ICD10: I48.0] Cony POOLE [address] [address] CPT- 4: 38256 05/25/2017 ([id number]) OFFICE/OUTPATIENT VISIT EST Diagnosis: Essential (primary) hypertension[ICD10: I10] Diagnosis: Hypothyroidism, unspecified[ICD10: E03.9] Cony POOLE [address] [address] CPT- 4: 23573 03/22/2017 ([id number]) OFFICE/OUTPATIENT VISIT EST Diagnosis: FLU VACCINE[ICD10: Z23] Cony CASTRO [address] [address] CPT-4: 36332 03/08/2017 ([id number]) OFFICE/OUTPATIENT VISIT EST Diagnosis: Essential (primary) hypertension[ICD10: I10] Diagnosis: Hypothyroidism, unspecified[ICD10: E03.9] Cony POOLE [address] [address] CPT- 4: 44308 01/18/2017 ([id number]) OFFICE/OUTPATIENT VISIT EST Diagnosis: Essential (primary) hypertension[ICD10: I10] Diagnosis: Localized edema[ICD10: R60.0] Diagnosis: Hypotension, unspecified[ICD10: I95.9] Cony POOLE DO [address] [address] CPT-4: 61379 12/16/2016 ([id number]) OFFICE/OUTPATIENT VISIT EST Diagnosis: Hypothyroidism, unspecified[ICD10: E03.9] Diagnosis: Essential (primary) hypertension[ICD10: I10] Cony POOLE DO [address] [address] CPT- 4: 51867 11/18/2016 ([id number]) OFFICE/OUTPATIENT VISIT EST Diagnosis: Hypotension due to drugs[ICD10: I95.2] Diagnosis: Lymphangitis[ICD10: I89.1] Diagnosis: Hypothyroidism, unspecified[ICD10: E03.9] Cony POOLE DO [address] [address] CPT- 4: 73688 11/04/2016 ([id number]) OFFICE/OUTPATIENT VISIT EST Diagnosis: Hypotension due to drugs[ICD10: I95.2] Diagnosis: Other fatigue[ICD10: R53.83] Cony POOLE DO [address] [address] CPT-4: 42127 10/27/2016 ([id number]) OFFICE/OUTPATIENT VISIT EST Diagnosis: Other symptoms and signs involving the genitourinary system[ICD10: R39.89] Cony POOLE DO [address] [address] CPT-4: 32964 10/26/2016 OFFICE/OUTPATIENT VISIT EST Diagnosis: Venous insufficiency (chronic) (peripheral)[ICD10: I87.2] Diagnosis: Lymphangitis[ICD10: I89.1] Diagnosis: Cellulitis of left lower limb[ICD10: L03.116] Cony POOLE DO [address] [address] CPT- 4: 98190 10/13/2016 OFFICE/OUTPATIENT VISIT EST Diagnosis: Cellulitis of left lower limb[ICD10: L03.116] Diagnosis: Lymphangitis[ICD10: I89.1] Cony STEVENSLINE Jeanine MOCTEZUMA [address] [address] CPT-4: 88189 10/08/2016 ([id number]) OFFICE/OUTPATIENT VISIT EST Diagnosis: Hypothyroidism, unspecified[ICD10: E03.9] Diagnosis: Essential (primary) hypertension[ICD10: I10] Diagnosis: Other fatigue[ICD10: R53.83] Diagnosis: Cellulitis of left lower limb[ICD10: L03.116] Cony HOWELLQUELINE AbigailMelina NGOC [address] [address] CPT- 4: 03960 10/05/2016 ([id number]) OFFICE/OUTPATIENT VISIT EST Diagnosis: Essential (primary) hypertension[ICD10: I10] Diagnosis: Localized edema[ICD10: R60.0] Diagnosis: Other fatigue[ICD10: R53.83] Cony Poole CONY AbigailMelina NGOC [address] [address] CPT-4: 67769 08/25/2016 ([id number]) OFFICE/OUTPATIENT VISIT EST Diagnosis: Essential (primary) hypertension[ICD10: I10] Diagnosis: Hypothyroidism, unspecified[ICD10: E03.9] Diagnosis: Weakness[ICD10: R53.1] Cony Colbylea Solorzano COLBYRY Deion [address] [address] CPT-4: 39531 07/28/2016 ([id number]) OFFICE/OUTPATIENT VISIT EST Diagnosis: Essential (primary) hypertension[ICD10: I10] Merlesiria oSlorzano COLBYBONYGLORIA [address] [address] CPT- 4: 06087 06/23/2016 ([id number]) OFFICE/OUTPATIENT VISIT EST Diagnosis: Cough[ICD10: R05] Diagnosis: Essential (primary) hypertension[ICD10: I10] Merle Solorzano [address] [address] CPT- 4: 07363 06/03/2016 ([id number]) OFFICE/OUTPATIENT VISIT EST Diagnosis: Acute upper respiratory infection, unspecified[ICD10: J06.9] Diagnosis: Fever, unspecified[ICD10: R50.9] Merle GRADY[address] [address] CPT-4: 12526 05/26/2016 ([id number]) OFFICE/OUTPATIENT VISIT EST Diagnosis: Essential (primary) hypertension[ICD10: I10] Diagnosis: Paroxysmal atrial fibrillation[ICD10: I48.0] Diagnosis: Venous insufficiency (chronic) (peripheral)[ICD10: I87.2] Diagnosis: Primary insomnia[ICD10: F51.01] Diagnosis: Hypothyroidism, unspecified[ICD10: E03.9] Cony GRADY[address] [address] CPT- 4: 81025 05/20/2016 ([id number]) OFFICE/OUTPATIENT VISIT EST Diagnosis: Pain in right ankle and joints of right foot[ICD10: M25.571] Diagnosis: Venous insufficiency (chronic) (peripheral)[ICD10: I87.2] Diagnosis: FLU VACCINE[ICD10: Z23] Cony GRADY [address] [address] CPT-4: 47856 03/19/2016 ([id number]) OFFICE/OUTPATIENT VISIT EST Diagnosis: Essential (primary) hypertension[ICD10: I10] Diagnosis: Localized edema[ICD10: R60.0] Diagnosis: Paroxysmal atrial fibrillation[ICD10: I48.0] Diagnosis: PNEUMOCOCCAL VACCINE[ICD10: Z23] Cony GRADY[address] [address] CPT-4: 00292 01/13/2016 ([id number]) OFFICE/OUTPATIENT VISIT EST Diagnosis: Hypo-osmolality and hyponatremia[ICD10: E87.1] Diagnosis: Essential (primary) hypertension[ICD10: I10] Diagnosis: Paroxysmal atrial fibrillation[ICD10: I48.0] Cony POOLE [address] [address] CPT- 4: 15124 12/12/2015 ([id number]) OFFICE/OUTPATIENT VISIT EST Diagnosis: Essential (primary) hypertension[ICD10: I10] Diagnosis: Edema, unspecified[ICD10: R60.9] Diagnosis: Hypo-osmolality and hyponatremia[ICD10: E87.1] Cony POOLE [address] [address] CPT- 4: 63497 12/05/2015 ([id number]) OFFICE/OUTPATIENT VISIT EST Diagnosis: Hypo-osmolality and hyponatremia[ICD10: E87.1] Diagnosis: Hematuria, unspecified[ICD10: R31.9] Cony POOLE [address] [address] CPT-4: 81481 11/27/2015 ([id number]) OFFICE/OUTPATIENT VISIT EST Diagnosis: Essential (primary) hypertension[ICD10: I10] Diagnosis: Edema, unspecified[ICD10: R60.9] Diagnosis: Dizziness and giddiness[ICD10: R42] Merle David POOLE [address] [address] CPT-4: 63228 10/21/2015 ([id number]) OFFICE/OUTPATIENT VISIT EST Diagnosis: Essential (primary) hypertension[ICD10: I10] Diagnosis: Localized edema[ICD10: R60.0] Diagnosis: Paroxysmal atrial fibrillation[ICD10: I48.0] Cony POOLE [address] [address] CPT- 4: 08825 10/17/2015 ([id number]) OFFICE/OUTPATIENT VISIT EST Diagnosis: Essential (primary) hypertension[ICD10: I10] Diagnosis: Tachycardia, unspecified[ICD10: R00.0] Diagnosis: Hypothyroidism, unspecified[ICD10: E03.9] Diagnosis: Palpitations[ICD10: R00.2] Merle MOCTEZUMA DO [address] [address] CPT-4: 57886 10/07/2015 ([id number]) OFFICE/OUTPATIENT VISIT EST Diagnosis: Acute upper respiratory infection, unspecified[ICD10: J06.9] Merle POOLE DO [address] [address] CPT-4: 81226 09/03/2015 ([id number]) OFFICE/OUTPATIENT VISIT EST Diagnosis: Essential (primary) hypertension[ICD10: I10] Cony POOLE DO [address] [address] CPT- 4: 10686 08/01/2015 OFFICE/OUTPATIENT VISIT NEW Diagnosis: Essential (primary) hypertension[ICD10: I10] Diagnosis: Hypothyroidism, unspecified[ICD10: E03.9] Diagnosis: Family history of malignant neoplasm of breast[ICD10: Z80.3] Cony POOLE DO [address] [address] CPT-4: 40877 06/27/2015 Plan of Care Planned Activity Notes [...] ICD-10 : R09.89 08/25/2022 Appointment: Cony Pooletel: [address] [place], [place] [phone] US FOLLOW UP 08/25/2022 Care Plan: X-RAY EXAM NECK SPINE 4/5VWS LOINC : 13561-5 Pending 08/25/2022 Visit Diagnosis Plan: Chronic atrial [...] ICD-10 : J44.9 08/11/2022 Appointment: Cony Pooletel: [address] [place], [place] [phone] FOLLOW UP 08/11/2022 Appointment: Cony Poole WPtel: [address] [place], [place] [phone] US RESCHEDULED 08/11/2022 Visit Diagnosis Plan: Edema [...] Appointment: Cony Poole WPtel: [phone] FOLLOW UP 07/28/2022 Patient Education: hydralazine- OptimizeRX Coupon [id number] Completed 07/28/2022 Patient Education: losartan- Optimize[employer] Coupon [id number] Completed 07/28/2022 Visit Diagnosis Plan: URI (upper respiratory infection ) Discussion: Influenza A and B and Covid negative Z-pack Continue budesonide and perforomist and add albuterol at least TID Notify if worsening ICD-9 : 465.9 ICD-10 : J06.9 07/14/2022 Appointment: Cony Poole WPtel: [address] [place], [place] [address] ACUTE ILLNESS 07/14/2022 Visit Diagnosis Plan: Hypothyroidism [...] : I10 06/23/2022 Appointment: Cony Poole WPtel: [address] [place], [place] [phone] FOLLOW UP 06/23/2022 Visit Diagnosis Plan: Hypothyroidism [...] I10 05/25/2022 [phone] [phone] [facility] 05/25/2022 Patient Education: losartan- OptimizeRX Coupon [id number] [email or web address]://www.BoxCat/Adlyfe/resources/getResource/61/[email or web address]-b5 Completed 05/25/2022 Visit Diagnosis Plan: Essential hypertension [...] App[facility]ment: [facility]el[phone] [phone] FO[facility] UP 03/19/2022 Visit Diagnosis Plan: COPD exacerbation Discussion: Co ntinue budesonide/performomist and use albuterol prn as rescue Go for COVID booster Flu shot in March Fwup 1month ICD-9 : 491.21 ICD-10 : J44.1 02/16/2022 Appointment: Cony Poole WPtel: [phone] [phone] FOLLOW UP 02/16/2022 Visit Diagnosis Plan: COPD exacerbation Discussion: Co ntinue breztri 2p BID and albuterol prn Will switch to Nebulizer with Budesonide 0.5mg BID and Perforomist 20mcg BID with duoneb q4hrs prn Fwup 2 weeks unless worsening ICD-9 : 491.21 ICD-10 : J44.1 2022 Appointment: Cony Poole WPtel: [phone] [phone] FOLLOW UP 2022 Visit Diagnosis Plan: [...] J44.0 01/27/2022 Appointment: Keeley Johnson WPtel: [phone] [phone] ACUTE ILLNESS 01/27/2022 Patient Education: Patient Medication Summary Completed 01/27/2022 Referral: Soy Rodriguez WPtel: [facility] [address] [place] [address] [address] [id number] [place] 09/30 - for office Completed 10/29/2021 [...] : E03.9 10/28/2021 Appointment: Cony Poole WPtel: [address] [place], [place] [phone] US FOLLOW UP 10/28/2021 Visit Diagnosis Plan: [...] : R06.00 09/23/2021 Appointment: Cony Poole WPtel: [address] [place], [place] [phone] US FOLLOW UP 09/23/2021 Appointment: Cony Poole WPtel: [address] [place], [place] [phone] US CANCELED 09/08/2021 Visit Diagnosis Plan: Essential [...] : I87.2 08/21/2021 Appointment: Cony Poole WPtel: [address] [place], [place] [phone] US FOLLOW UP 08/21/2021 Appointment: Keeley Johnson WPtel: [phone] [phone] US CANCELED 08/12/2021 Visit Diagnosis Plan: Essential (primary) hypertension Discussion: Stable ICD-9 : 401.9 ICD-10 : I10 07/30/2021 Visit Diagnosis Plan: Atrial fibrillation Discussion: On cardizem and eliquis and rate controlled and asympotomatic Sees Dr Lopez in 2 weeks ICD-9 : 427.31 ICD-10 : I48.91 07/30/2021 Appointment: Cony Poole WPtel: [address] [place], [place] [phone] US FOLLOW UP 07/30/2021 Appointment: Cony Poole WPtel: [address] [place], [place] [phone] [place] due to weather CANCELED 07/24/2021 Visit [...] : J45.909 06/19/2021 Appointment: Cony Poole WPtel: [address] [place], [place] [phone] FOLLOW UP 06/19/2021 Appointment: Cony Poole WPtel: [address] [place], [place] [phone] US seen 05/08/21 at 1 pm by doctor as appt opened up CANCELED 05/14/2021 Appointment: Cony Poole WPtel: [address] [place], [place] [phone] UA 05/12/2021 Visit Diagnosis Plan: Recurrent UTI [...] : R60.0 05/08/2021 Appointment: Cony Poole WPtel: [address] [place], [place] [phone] ACUTE ILLNESS 05/08/2021 Visit Diagnosis Plan: Cervical radiculopathy Discussio n: Start PT ICD-9 : 723.4 ICD-10 : M54.12 04/28/2021 Visit Diagnosis Plan: Stress and adjustment reaction D iscussion: Stress Reducers Discussed Discussion: Stress Reducers Discussed meds ICD-9 : 309.89 ICD-10 : F43.29 04/28/2021 Appointment: Cony Poole WPtel: [address] [place] [phone] ACUTE ILLNESS 04/28/2021 Appointment: Cony Poole WPtel: [address] [place], [place] [phone] US RESCHEDULED 03/25/2021 Visit Diagnosis Plan: Other [...] Summary Completed 03/19/2021 Appointment: Cony Poole WPtel: [address] [place], [place] [phone] US INJECTION 02/27/2021 Visit Diagnosis Plan: Essential [...] : I48.91 02/06/2021 Appointment: Cony Poole WPtel: [address] [place], [place] [phone] ACUTE ILLNESS 02/06/2021 Care Plan: US EXAM OF HEAD AND NECK LOIN C : 98929-5 Pending 02/06/2021 Care Plan: DXA BONE DENSITY AXIAL LOINC : 31802-4 Pending 02/06/2021 Appointment: Keeley Johnson WPtel: [phone] [phone] US CANCELED 12/24/2020 Visit Diagnosis Plan: Skin lesion of right leg Discuss ion: Appears to be healing- is smaller, no s/s of infection. Will f/u if does not improve or worsens. ICD-9 : 709.9 ICD-10 : L98.9 12/20/2020 Appointment: Keeley Johnson WPtel: [phone] [phone] OFFICE SURGERY 12/20/2020 Patient Education: Patient Medication Summary Completed 12/20/2020 Visit Diagnosis Plan: Nontraumatic blister of skin Dis cussion: Small isolated lesion, no s/s of infection. Bandaid and neosporin applied. 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 F/U for worsening/concerns or if more lesions appear. ICD-9 : 709.8 ICD-10 : R23.8 12/11/2020 Appointment: Keeley Johnson WPtel: [phone] [phone] ACUTE ILLNESS 12/11/2020 Patient Education: Patient Medication [...] R35.1 11/11/2020 Appointment: Cony Poole WPtel: [phone] [phone] ACUTE ILLNESS 11/11/2020 Appointment: Cony Poole WPtel: [phone] [phone] CANCELED 11/11/2020 Visit Diagnosis Plan: Inflamed seborrheic keratosis Di scussion: Cryotherapy as above ICD-9 : 702.11 ICD-10 : L82.0 09/05/2020 Appointment: Cony Poole WPtel: [phone] ACUTE ILLNESS 09/05/2020 Visit Diagnosis Plan: Essential hypertension Discussio n: Stable ICD-9 : 401.9 ICD-10 : I10 07/29/2020 Visit Diagnosis Plan: Paroxysmal atrial fibrillation D iscussion: On eliquis ICD-9 : 427.31 ICD-10 : I48.0 07/29/2020 Visit Diagnosis Plan: Hypothyroidism Discussion: Lab d iscussed Will recheck lab in 2mos ICD-9 : 244.9 ICD-10 : E03.9 07/29/2020 Appointment: Cony Poole WPtel: [address] [place], [place] [phone] FOLLOW UP 07/29/2020 Visit Diagnosis Plan: Dizziness and giddiness Discussi on: Continue increased dose of Cardizem ER 120mg po BID and monitor BP/pulse Has LINQ device in place Discussed Kardia EKG Follow Up: 1 months ICD-9 : 780.4 ICD-10 : R42 06/24/2020 Appointment: Cony Poole WPtel: [phone] Hospital Follow Up 06/24/2020 Visit Diagnosis [...] : R53.1 06/21/2020 Appointment: Apoorva Rueda [address] [employer] [facility] TELEMEDICINE 06/21/2020 Visit Diagnosis Plan: URI (upper [...] : J06.9 03/19/2020 Appointment: Apoorva Rueda [address] [employer] [facility] TELEMEDICINE 03/19/2020 Visit Diagnosis Plan: Atrial fibrillation [...] I10 02/29/2020 Appointment: Cony Poole WPtel: [phone] [phone] FOLLOW UP 02/29/2020 Care Plan: CT [...] : I87.2 02/22/2020 Appointment: Mohit, Apoorva R. [address] [place], [place] [phone] ACUTE ILLNESS 02/22/2020 Appointment: Cony Poole WPtel: [address] [place], [place] [address] 02/20/2020 Visit Diagnosis Plan: Urinary tract infection Discussi on: based on patient's age and length of illness, clinical s/s, will give 1 gm rocephin in office. urine sent for culture. push fluids and call office with new or worsening symptoms. ICD-9 : 599.0 ICD-10 : N39.0 02/13/2020 Appointment: Apoorva Rueda [address] [place], [place] [phone] ACUTE ILLNESS 02/13/2020 Visit Diagnosis Plan: Neck pain Discussion: Daily stre tches Moist heat Topical muscle rub Can use baclofen 1/2 tab during day and full tab at night ICD-9 : 723.1 ICD-10 : M54.2 2020 Appointment: Cony Poole WPtel: [address] [place], [place] [address] ACUTE ILLNESS 2020 Visit Diagnosis Plan: Atrial [...] : M25.531 01/22/2020 Appointment: Cony Poole WPtel: [address] [place], [place] [phone] FOLLOW UP 01/22/2020 Visit Diagnosis Plan: Paroxysmal atrial fibrillation D iscussion: Stable with new meds Follow Up: 1 months ICD-9 : 427.31 ICD-10 : I48.0 12/26/2019 Visit Diagnosis Plan: Essential hypertension Discussio n: Stable ICD-9 : 401.9 ICD-10 : I10 12/26/2019 Appointment: Cony Poole WPtel: [address] [place], [place] [phone] Hospital Follow Up 12/26/2019 Appointment: Cony Poole WPtel: [phone] [phone] US CANCELED 12/25/2019 Visit Diagnosis Plan: [...] ICD-10 : I50.9 11/27/2019 Appointment: Apoorva Rueda [address] [place], [place] [phone] FOLLOW UP 11/27/2019 Visit Diagnosis Plan: Hypotension Discussion: Decrease amlodopine to once daily Monitor home BP/pulse and report readings in 2 weeks ICD-9 : 458.9 ICD-10 : I95.9 11/09/2019 Visit Diagnosis Plan: Urinary tract infection Discussi on: Cefdinir Culture urine ICD-9 : 599.0 ICD-10 : N39.0 11/09/2019 Appointment: Apoorva Rueda [address] [facility] CANCELED 11/09/2019 Appointment: Cony Poole WPtel: [phone] [phone] ACUTE ILLNESS 11/09/2019 Patient Education: cefdinir- Optimize[employer] Coupon [id number] [email or web address] INNOVA/samplemd/resources/getResource/61/[email or web address] Completed 11/09/2019 Visit Diagnosis Plan: Left leg swelling Discussion: St at LLE doppler now ICD-9 : 729.81 ICD-10 : M79.89 10/10/2019 Appointment: Cony Poole WPtel: [address] [place] [address] ACUTE ILLNESS 10/10/2019 Visit Diagnosis Plan: Muscle spasm Discussion: Can use tylenol 325mg po TID Topical muscle rub Baclofen 10mg 1/2-1 po q HS for spasm but hold temazepam while taking Notify if worsening or persists Stretches/Moist Heat ICD-9 : 728.85 ICD-10 : M62.838 08/25/2019 Appointment: Cony Poole WPtel: [address] [place] [address] TELEMEDICINE 08/25/2019 Patient Education: baclofen- [employer]imize[employer] Coupon [id number] [email or web address] INNOVA/samplemd/resources/getResource/61/[email or web address] Completed 08/25/2019 Visit Diagnosis Plan: Low back pain Discussion: Check L/S spine x-rays ICD-9 : 724.2 ICD-10 : M54.5 07/13/2019 Visit Diagnosis Plan: Sciatica of left side Discussion : Will likely start with PT pending x-ray results ICD-9 : 724.3 ICD-10 : M54.32 07/13/2019 Appointment: Cony Poole WPtel: [address] [place], [place] [address] ACUTE ILLNESS 07/13/2019 Care Plan: X-RAY EXAM L-S SPINE 2/3 VWS LOINC : 01202-3 Pending 07/13/2019 Visit Diagnosis Plan: Pneumonia due to infectious orga nism Discussion: Repeat rocephin 1gm IM today Start cefdinir tomorrow To ER this weekend if worsens ICD-9 : 486 ICD-10 : J18.9 05/18/2019 Appointment: Cony Poole WPtel: [address] [place], [place] [phone] US FOLLOW UP 05/18/2019 Patient Education: cefdinir- [employer]imize[employer] Coupon [id number] https://www.BoxCat/Adlyfe/resources/getResource/61/9l22h46y-87z1-29l9-d6 Completed 05/18/2019 Patient Education: temazepam- [employer] Coupon [id number] https://www.BoxCat/Adlyfe/resources/getResource/61/jb2p25wy-8848-9hv7-8s Completed 05/18/2019 Patient Education: Synthroid- [employer] Coupon [id number] https://www.BoxCat/Adlyfe/resources/getResource/61/52915ppv-nd27-9w30-22 Completed 05/18/2019 Patient Education: Cytomel- [employer] Coupon [id number] https://www.BoxCat/Adlyfe/resources/getResource/61/rs30xj70-449w-180d-x1 Completed 05/18/2019 Visit Diagnosis Plan: Pneumonia due to infectious orga nism Discussion: Rocephin 1gm IM now Recheck tomorrow ICD-9 : 486 ICD-10 : J18.9 05/17/2019 Appointment: Cony Poole WPtel: [address] [place], [place] [phone] US FOLLOW UP 05/17/2019 Appointment: Cony Poole WPtel: [address] [place], [place] [phone] 05/10/19 1630---see note in chart related to throat culture (km) CANCELED 05/10/2019 Appointment: Cony Poole WPtel: [address] [place] [address] 05/08/2019 Appointment: Cony Poole WPtel: [address] [place], [place] [address] NURSE SERVICES 05/08/2019 Visit Diagnosis Plan: Stomatitis [...] : N39.0 04/24/2019 Appointment: Cony Poole WPtel: [address] [place] [address] FOLLOW UP 04/24/2019 Patient Education: nystatin- [employer] Coupon [id number] https://www.BoxCat/Adlyfe/resources/getResource/61/o997890f-n917-6v8r-l3 Completed 04/24/2019 Appointment: Cony Poole WPtel: [address] [place], [place] [address] [facility] 04/21/2019 Visit Diagnosis Plan: Stomatitis and mucositis with ch bry of taste Discussion: Diflucan and nystatin susp Discussed oral biopsy ICD-9 : 528.00 ICD-10 : K12.1 04/10/2019 Appointment: Cony Poole WPtel: [address] [place], [place] [address] ACUTE ILLNESS 04/10/2019 Patient Education: nystatin- [employer] Coupon [id number] https://www.BoxCat/Adlyfe/resources/getResource/61/5kcnwb73-36j8-7191-wb Completed 04/10/2019 Appointment: Cony Poole WPtel: [address] [place], [place] [phone] US INJECTION 03/02/2019 Patient Education: INFLUENZA VACCINE [...] : R35.1 02/16/2019 Appointment: Cony Poole WPtel: [address] [place] [address] ACUTE ILLNESS 02/16/2019 Appointment: Cony Poole WPtel: [address] [place], [place] [phone] NO SHOW - FORGIVEN 02/15/2019 Appointment: Cony Poole WPtel: [address] [place], [place] [address] BP CHECK 01/24/2019 Visit Diagnosis Plan: Acute upper respiratory infectio n, unspecified Discussion: cefdinir bid for 7 days. instructed to continue with allergy medications daily. call or rtc with new or worsening symptoms. ICD-9 : 465.9 ICD-10 : J06.9 12/20/2018 Appointment: Apoorva Rueda [address] [place], [place] [address]a [address] ACUTE ILLNESS 12/20/2018 Visit Diagnosis Plan: Impacted cerumen, right ear Disc ussion: ear canal cleaned out with lavage. patient tolerated well and had immediate relief of hearing loss. no issues voiced. ICD-9 : 380.4 ICD-10 : H61.21 12/14/2018 Appointment: Apoorva Rueda [address] [place], [place] [address] ACUTE ILLNESS 12/14/2018 Visit Diagnosis Plan: Essential [...] : I48.0 12/12/2018 Appointment: Cony Poole WPtel: [address] [place], [place] [address] US FOLLOW UP 12/12/2018 Visit Diagnosis Plan: Essential (primary) hypertension Discussion: Stable Patient sees cardiology next week--has been off sotalol since 09/15/18 and BP and pulse have been stable ICD-9 : 401.9 ICD-10 : I10 10/19/2018 Appointment: Cony Poole WPtel: [address] [place], [place] [phone] FOLLOW UP 10/19/2018 Appointment: Cony Poole WPtel: [address] [place] [address] US BP CHECK 10/13/2018 Visit Diagnosis Plan: Allergic rhinitis due to pollen Discussion: Continue zyrtec ICD-9 : 477.9 ICD-10 : J30.1 10/05/2018 Visit Diagnosis Plan: Essential (primary) hypertension Discussion: Stable Recheck 2 weeks ICD-9 : 401.9 ICD-10 : I10 10/05/2018 Appointment: Cony Poole WPtel: [address] [place] [phone] US FOLLOW UP 10/05/2018 Patient Education: Synthroid- [employer] Coupon [id number] https://www.BoxCat/sampleViFlux/resources/getResource/61/sft52429-t850-5020-89 Completed 10/05/2018 Visit Diagnosis Plan: Allergic rhinitis due to pollen Discussion: Continue zyrtec Finish prednisone ICD-9 : 477.9 ICD-10 : J30.1 09/28/2018 Visit Diagnosis Plan: Hematuria, unspecified Discussio n: Recheck UA with microscopy in 1 week then fwup ICD-9 : 599.70 ICD-10 : R31.9 09/28/2018 Appointment: Cony Poole WPtel: [phone] US FOLLOW UP 09/28/2018 Visit Diagnosis [...] Cony Poole WPtel: [phone] US FOLLOW UP 09/26/2018 Visit Diagnosis [...] ICD-10 : J20.9 09/23/2018 Appointment: Merry Diaz [facility] [address] FOLLOW UP 09/23/2018 Patient Education: cefdinir- Optimize[employer] Coupon [id number] https://www.Adlyfe.RED INNOVA/samplemd/resources/getResource/61/1kb6b0km-1342-3t27-l2 Completed 09/23/2018 Visit Diagnosis Plan: Acute bronchitis, unspecified Di scussion: Rocephin today Go for CXR Flu negative Recheck tomorrow ICD-9 : 466.0 ICD-10 : J20.9 09/22/2018 Appointment: Cony Poole WPtel: [address] [place], [place] [phone] FOLLOW UP 09/22/2018 Visit Diagnosis Plan: Tachycardia, [...] Appointment: Merry Diaz [facility] [employer] [address] ACUTE ILLNESS 09/20/2018 Visit Diagnosis Plan: Other fatigue Discussion: Hold s otalol Add B12 500mcg daily as B12 in low normal range Fwup 1 week ICD-9 : 780.79 ICD-10 : R53.83 09/15/2018 Visit Diagnosis Plan: Hypothyroidism, unspecified Disc ussion: Decrease Synthroid to 50mcg daily ICD-9 : 244.9 ICD-10 : E03.9 09/15/2018 Appointment: Cony Poole WPtel: [address] [place], [place] [phone] FOLLOW UP 09/15/2018 Appointment: Cony Poole WPtel: [address] [place] [address] UA 09/14/2018 Visit Diagnosis Plan: Chronic fatigue, unspecified Dis cussion: I think her sotalol may be a big factor so will start with updated lab and if it is normal then will hold sotalol and fwup in 1 week ICD-9 : 780.79 ICD-10 : R53.82 09/08/2018 Appointment: Cony Poole WPtel: [facility] ACUTE ILLNESS 09/08/2018 Visit Diagnosis Plan: Dysuria Discussion: UA- positive for leuks, hematuria, nitrates. Will start patient on Macrobid and culture urine. Will call patient with results of culture. RTC with worsening symptoms, including fever, increased pain, abdominal pain. Patient states understanding. ICD-9 : 788.1 ICD-10 : R30.0 09/05/2018 Appointment: Merry Diaz [address] ACUTE ILLNESS 09/05/2018 Care Plan: RML ASSAY THYROID STIM HORMONE Pending 05/26/2018 Care Plan: RML ASSAY OF FREE THYROXINE Pe nding 05/26/2018 Appointment: Cony Poole WPtel: [address] [place], [place] [phone] UA 04/20/2018 Appointment: Cony Poole WPtel: [address] [place], [place] [address] BP CHECK 04/13/2018 Visit Diagnosis Plan: Impacted cerumen, right ear Disc ussion: cerumen removed with irrigation and lavage. patient tolerated well and had immediate relief. ICD-9 : 380.4 ICD-10 : H61.21 03/18/2018 Appointment: Apoorva Rueda [address] ACUTE ILLNESS 03/18/2018 Patient Education: Patient [...] Appointment: Cony Poole WPtel: [phone] [id number] FOLLOW UP 03/03/2018 Patient Education: Patient Medication Summary Completed 03/03/2018 Visit Diagnosis Plan: Atopic dermatitis, unspecified D iscussion: instructed to apply triamcinolone bid for 2 weeks, until follow up. follow with your normal lotion and cover with compression hose. if worsening or no improvement, call clinic. ICD-9 : 691.8 ICD-10 : L20.9 02/16/2018 Appointment: Apoorva Rueda [address] [place] [address] ACUTE ILLNESS 02/16/2018 Patient Education: Patient Medication [...] ICD-10 : L89.611 01/26/2018 Appointment: Apoorva Rueda [address] [place] [address] ACUTE ILLNESS 01/26/2018 Patient Education: Patient Medication [...] I10 11/30/2017 Appointment: Cony Poole WPtel: [address] [phone] FOLLOW UP 11/30/2017 Patient Education: Patient Medication Summary Completed 11/30/2017 Visit Diagnosis Plan: Other seborrheic keratosis Discu ssion: Monitor ICD-9 : 702.19 ICD-10 : L82.1 11/04/2017 Appointment: Cony Poole WPtel: [phone] US Consult 11/04/2017 Patient Education: Patient Medication Summary Completed 11/04/2017 Visit Diagnosis Plan: Achilles tendinitis, right leg D iscussion: educated patient on RICE and the importance of performing all these activities. 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 to miner pick at medical supply store to assist with [...] ICD-10 : M76.61 10/20/2017 Appointment: Apoorva Rueda [address] [place] [address] ACUTE ILLNESS 10/20/2017 Patient Education: Patient Medication Summary Completed 10/20/2017 Visit Diagnosis Plan: Essential (primary) hypertension Discussion: Stable ICD-9 : 401.9 ICD-10 : I10 08/30/2017 Visit Diagnosis Plan: Weakness Discussion: Check Cervi gerri spine x-ray due to primarily being in upper arms ICD-9 : 780.79 ICD-10 : R53.1 08/30/2017 Appointment: Cony Poole WPtel: [phone] FOLLOW UP 08/30/2017 Patient Education: Patient Medication Summary Completed 08/30/2017 Care Plan: X-RAY EXAM NECK SPINE 4/5VWS LOINC : 49588-7 Pending 08/30/2017 Patient Education: Patient Medication Summary Completed 08/13/2017 Care Plan: DXA BONE DENSITY AXIAL LOINC : 03717-6 Pending 08/13/2017 Patient Education: Patient Medication Summary Completed 07/01/2017 Care Plan: RML COMPREHEN METABOLIC PANEL LOINC : 29026-7 Pending 07/01/2017 Care Plan: RML ASSAY THYROID STIM HORMONE Pending 07/01/2017 Care Plan: RML ASSAY OF FREE THYROXINE Pe nding 07/01/2017 Care Plan: RML LIPID PANEL LOINC : 84346 -1 Pending 07/01/2017 Care Plan: CBC Pending [...] [facility] [facility] 05/25/2017 Patient Education: [...] I10 03/22/2017 App[facility]ment[facility]el[facility] [facility] [facility] FOLLOW UP 03/22/2017 Patient Education: Patient Medication Summary Completed 03/22/2017 Patient Education: Patient Medication Summary Completed 03/17/2017 Care Plan: RML ASSAY THYROID STIM HORMONE Pending 03/17/2017 Care Plan: RML ASSAY OF FREE THYROXINE Pe nding 03/17/2017 Care Plan: METABOLIC PANEL TOTAL CA LOIN C : 26659-3 Pending 03/17/2017 Appointment: Cony Poole WPtel: [address] [place], [place] [phone] US INJECTION 03/08/2017 Patient Education: Patient Medication Summary Completed 03/08/2017 Visit Diagnosis Plan: Hypothyroidism, unspecified Disc ussion: Increase synthroid to 75mcg daily and recheck 2mos Follow Up: 2 months ICD-9 : 244.9 ICD-10 : E03.9 01/18/2017 Visit Diagnosis Plan: Essential (primary) hypertension Discussion: Stable with current meds ICD-9 : 401.9 ICD-10 : I10 01/18/2017 Appointment: Cony Poole WPtel: [address] [place], [place] [phone] US 01/14lm~sl FOLLOW UP 01/18/2017 Patient Education: Patient Medication Summary Completed 01/18/2017 Appointment: Cony Poole WPtel: [address] [place], [place] [phone] BP CHECK 01/11/2017 Patient Education: Patient Medication Summary Completed 01/11/2017 Patient Education: Patient Medication Summary Completed 01/11/2017 Care Plan: RML ASSAY THYROID STIM HORMONE Pending 01/11/2017 Care Plan: RML ASSAY OF FREE THYROXINE Pe nding 01/11/2017 Appointment: Cony Poole WPtel: [address] [place], [place] [phone] US BP CHECK 01/04/2017 Patient Education: Patient Medication Summary Completed 01/04/2017 Appointment: Cony Poole WPtel: [address] [place], [place] [phone] US BP CHECK 12/28/2016 Patient Education: Patient Medication Summary Completed 12/28/2016 Appointment: Cony Poole WPtel: [address] [place], [place] [phone] BP CHECK 12/24/2016 Patient Education: Patient Medication [...] Cony Poole WPtel: [phone] ACUTE ILLNESS 12/16/2016 Patient Education: Patient [...] Cony Poole WPtel: [phone] 11/17 lm ~sl 11/18 confirmed~sl FOLLOW [...] : E03.9 11/04/2016 Appointment: Cony Poole WPtel: [address] [place], [place] [phone] 11/03 confirmed `sl FOLLOW UP 11/04/2016 Patient Education: Patient Medication Summary Completed 11/04/2016 Visit Diagnosis Plan: Hypotension due to drugs Discuss ion: Hydrate Hold Losartan tonight then decrease to 50mg q HS BP check in 1 week ICD-9 : 458.8 ICD-10 : I95.2 10/27/2016 Appointment: Cony Poole WPtel: [address] [place], [place] [phone] 10/26 Confirmed~sl FOLLOW UP 10/27/2016 Patient Education: Patient Medication Summary Completed 10/27/2016 Appointment: Cony Poole WPtel: [address] [place], [place] [phone] UA 10/26/2016 Patient Education: Patient Medication Summary Completed 10/26/2016 Visit Diagnosis Plan: Cellulitis of left lower limb Di scussion: Finish Clindamycin Follow Up: 2 weeks ICD-9 : 682.6 ICD-10 : L03.116 10/13/2016 Appointment: Cony Poole WPtel: [address] [place], [place] [phone] 10/12 lm-sp WORK IN 10/13/2016 Patient Education: Patient Medication Summary Completed 10/13/2016 Visit Diagnosis Plan: Cellulitis of left lower limb Di scussion: Change keflex to clindamycin Add prednisone Continue compression socks and elevate ICD-9 : 682.6 ICD-10 : L03.116 10/08/2016 Appointment: Cony Poole WPtel: [phone] 10/07 lm~sl 10/08 confirmed`sl FOLLOW UP [...] L03.116 10/05/2016 Appointment: [facility]Ptel[phone] 10/01 confirmed `sl FOLLOW UP 10/05/2016 [...] METABOLIC PANEL TOTAL CA LOIN C : 32788-8 Pending 09/30/2016 Visit Diagnosis Plan: Other fatigue [...] Appointment: Con[facility] Poole [facility]Ptel[phone] [phone] 08/24 confirmed~sl FOLLOW UP 08/25/2016 Patient Education: Patient Medication Summary Completed 08/25/2016 Appointment: Cony Poole [facility]Ptel[facility] [phone] [facility] 07/30 rescheduled~sl RESCHEDULED 08/19/2016 Patient Education: Patient Medication Summary Completed 08/19/2016 Care Plan: RML COMPREHEN METABOLIC PANEL LOINC : 38782-0 Pending 08/19/2016 Care Plan: CBC Pending 08/19/2016 [...] : I10 07/28/2016 Appointment: Cony Poole WPtel: [address] [place], [place] [phone] [place] [address] 07/27 confirmed~sl ACUTE ILLNESS 07/28/2016 Patient Education: Patient Medication Summary Completed 07/28/2016 Patient Education: Patient Medication Summary Completed 07/06/2016 Care Plan: RML ASSAY THYROID STIM HORMONE Pending 07/06/2016 Care Plan: RML ASSAY OF FREE THYROXINE Pe nding 07/06/2016 Appointment: Cony Poole WPtel: [address] [place], [place] [phone] BP CHECK 06/25/2016 Patient Education: Patient Medication Summary Completed 06/25/2016 Patient Education: Patient Medication Summary Completed 06/25/2016 Care Plan: CBC Pending 06/25/2016 Care Plan: URINALYSIS AUTO W/[place] : 67[address]-1 Pending 06/25/2016 Visit Diagnosis Plan: Essential (primary) hypertension Discussion: Discussed with Dr Poole Increase HCTZ as above Check CMP in 1-2 weeks Patient to call Dr Noble for follow up with him, 1-2 weeks and management of her HTN ICD-9 : 401.9 ICD-10 : I10 06/23/2016 Appointment: Merle Hernandez [address] [place] [address] ACUTE ILLNESS 06/23/2016 Patient Education: Patient Medication [...] plan and agrees 06/03/2016 Appointment: Merle Hernandez [address] [place] [address] ACUTE ILLNESS 06/03/2016 Patient Education: Patient Medication Summary Completed 06/03/2016 Visit Plan: Exam is fairly benign Flu ra n since her symptoms had such a sudden onset - results negative Likely viral URI Supportive care reviewed Monitor closely Follow up PRN 05/26/2016 Appointment: Merle Hernandez [address] [place], [place] [address] ACUTE ILLNESS 05/26/2016 Patient Education: Patient Medication Summary Completed 05/26/2016 Visit Plan: Continue current meds and mo nitor BP Continue temazepam at current dose--discussed risks but patient feels much better since getting good rest Check CBC, CMP, TSH, Free T4 05/20/2016 Appointment: Cony Poole WPtel: [address] [place], [place] [phone] 05/19 confirmed~sl FOLLOW UP 05/20/2016 Patient Education: Patient Medication Summary Completed 05/20/2016 Appointment: Cony Poole WPtel: [phone] US CANCELED 04/07/2016 Visit Plan: Check right ankle x-ray Disc ussed may need veins in right ankle worked on if swelling/pain persist 03/19/2016 Appointment: Cony Pooletel: [address] [place], [place] [phone] ACUTE ILLNESS 03/19/2016 Patient Education: Patient Medication Summary Completed 03/19/2016 Visit Plan: Increase HCTZ to 12.5mg po e very day Recheck Chem [address] Noble next week to discuss antiarrhythmic meds Prevnar 13 today 01/13/2016 Appointment: Cony Pooletel: [address] [place], [place] [phone] 01/08 confirmed-sp FOLLOW UP 01/13/2016 Patient Education: Patient Medication Summary Completed 01/13/2016 Visit Plan: Continue current meds and mo nitor BP Check Chem 7 12/12/2015 Appointment: Cony Poole WPtel: [address] [place], [place] [phone] /6confirmed sl FOLLOW UP 12/12/2015 Patient Education: Patient Medication Summary Completed 12/12/2015 Appointment: Cony Poole WPtel: [address] [place], [place] [phone] RESCHEDULED 12/10/2015 Visit Plan: Add Restoril 15mg q HS--stuart ent used in hospital with no complications Add back low dose HCTZ at 12.5mg every other day Monitor BP Can hold on nebulizer treatments Check Chem 7 now and recheck 1week 12/05/2015 Appointment: Cony Poole WPtel: [address] [place], [place] [phone] 12/02 confirmed~sl ER Follow UP 12/05/2015 Patient Education: Patient Medication Summary Completed 12/05/2015 Appointment: Cony Poole WPtel: [address] [place], [place] [phone] WORK IN 11/28/2015 Visit Plan: Due to patient's symptoms an d high blood pressure I consulted . Outpatient orders written for 1L IV fluids with 1G Rocephin and Zofran for nausea. Patient sent to hospital and followup in am. 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 Keep BP log and follow up PRN 10/21/2015 Appointment: [facility] [facility] 10/21/2015 Patient Education: Patient Medication Summary Completed 10/21/2015 Visit Plan: Stop amlodopine Increase met oprolol to to 50mg q HS and 25mg in AM Switch cozaar to 100mg daily as the insurance does not want to pay for 50mg BID dosing Low Na diet and elevate legs See Cardiology 10/17/2015 Appointment: Cony Poole WPtel: [phone] [phone] 5/11confirm~sl FOLLOW UP 10/17/2015 Patient Education: Patient Medication Summary Completed 10/17/2015 Visit Plan: Pt to bring in home BP/HR lo g for review Orders given for CBC, CMP, TSH, MG and 48 holter for further evaluation 10/07/2015 Appointment: Merle Hernandez [address] [place] [address] ACUTE ILLNESS 10/07/2015 Patient Education: Patient Medication Summary Completed 10/07/2015 Visit Plan: Cold vs Allergies Continue z yrtec and nasacort Add steroid pack as above Add plain mucinex, nasal rinses, vicks, humidifier, etc Call if not improving or if worsening - will likely add zpak 09/03/2015 Appointment: Merle Hernandez [address] [place], [place] [address] ACUTE ILLNESS 09/03/2015 Patient Education: Patient Medication Summary Completed 09/03/2015 Visit Plan: BP values reviewed Change me toprolol to 12.5mg po BID BP values in 1month 08/01/2015 Appointment: Coyn Poole WPtel: [address] [place], [place] [phone] 07/31 confirmed-SP FOLLOW UP 08/01/2015 Patient Education: Patient Medication Summary Completed 08/01/2015 Visit Plan: Had lab in the fall--shanelle jennifer ain copy and plan on repeat lab 6mos from last lab then fwup after that Continue current meds Mammogram up-to-date 06/27/2015 Appointment: Cony Poole WPtel: [address] [place], [place] [phone] 06/26/15 appt confirmed cn NEW PATIENT 06/27 Patient Education: Patient Medication Summary Completed 06/27/2015 Referral: Donald Noble WPtel: [facility] [address] [id number] [place] Referral Initiated Instructions Comment Date . [...] . 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
--- OUTSIDE RECORDS SUMMARY | 2022-11-09 15:30 | XMS REPORT | CCD ---
Author Author Tanna Poole D.O. Organization [facility] Address [address] [place] [phone] Phone Care Team Providers Care Radio Equipment Installer Name Role Phone Cony Poole D.O., PP Unavailable CCM Unavailable Summary Purpose Interface Exchange Insurance Providers Payer name Policy type / Coverage type Covered alliance party ID Effective Begin Date Effective End Date W[place] MEDIC[place] Medicare Part B [id number] 2017 Unknown [facility] Medicare Part B [id number] Un known Family history Sister Diagnosis Age [...] Unknown Retired 06/27/[address]: 7093601 Former smoker quit 1986 06/27/[address]: 287659912 Never drinks alcohol 2015 Has the patient [...] Problems Condition Codes Effective Dates Condition Status Cervicalgia ICD-10: M54.2 ICD-9: 723.1 2020 Active [...] radiculopathy ICD-10: M54.12 ICD-9: 723.4 04/28/2021 Active 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 ICD-9: 309.89 04/28/2021 Active Other fatigue ICD-10: R53.83 ICD-9: [...] Start Date Stop Date Status Fill Instructions losartan 50 mg tablet RxNorm: 831976 Take 1 Tablet(s) Oral two times a day 09/16/2022 03/14/2023 Active Synthroid 75 mcg tablet RxNorm: 405209 Take 1 Tablet(s) Oral MWF 11/25/2022 Active Synthroid 88 mcg tablet RxNorm: 593108 Take 1 Tablet(s) Oral QD Tu, Th, Sa, [place] 08/28/2022 11/25/2022 Active Synthroid 88 mcg tablet RxNorm: 354612 Take 1 Tablet(s) Oral QD Tu, Th, Sa, [place] 08/25/2022 08/25/2022 Inactive Synthroid 75 mcg tablet RxNorm: 970892 Take 1 Tablet(s) Oral MWF 08/25/2022 Inactive Synthroid 75 mcg tablet RxNorm: 037605 Take 1 Tablet(s) Oral MWF 08/24/2022 Inactive hydralazine 10 mg tablet RxNorm: 919524 Take 1 Tablet(s) Oral t wo times a day 07/28/2022 10/25/2022 Active metoprolol succinate ER 100 mg tablet,extended release 24 hr RxNorm: 425168 Take 1 Tablet(s) Oral QPM 07/28/2022 07/28/2022 Inactive Synthroid 88 mcg tablet RxNorm: 808491 Take 1 Tablet(s) Oral QD Wednesday-Wednesday07/28/2022 08/24/2022 Inactive Synthroid 75 mcg tablet RxNorm: 476017 Take 1 Tablet(s) Oral QA M Sat/Sun 07/28/2022 08/24/2022 Inactive losartan 50 mg tablet RxNorm: 419069 1 Tablet(s) Oral two times a day 07/28/2022 07/28/2022 Inactive Zithromax Z-Topher 250 mg tablet RxNorm: 592325 Take 2 Tab let(s) Oral QD x1 dose then 1 daily 07/14/2022 07/18/2022 Inactive losartan 50 mg tablet RxNorm: 324224 TAKE ONE TABLET BY MOUTH DAILY 07/14/2022 07/27/2022 Inactive Synthroid 88 mcg tablet RxNorm: 050867 Take 1 Tablet(s) Oral QD Wednesday-Wednesday06/23/2022 07/27/2022 Inactive Synthroid 75 mcg tablet RxNorm: 148446 Take 1 Tablet(s) Oral QA M Sat/Sun 06/23/2022 07/27/2022 Inactive Xarelto 15 mg tablet RxNorm: 3073904 Take 1 Tablet(s) Oral QD 06/0906/09/2022 Inactive atorvastatin 20 mg tablet RxNorm: 370840 Take 1 Tablet(s) Oral QD 0 06/09/2022 06/09/2022 Inactive metoprolol succinate ER 100 mg tablet,extended release 24 hr RxNorm: 250623 Take 1 Tablet(s) Oral QD 06/09/2022 06/09/2022 Inactive budesonide 0.5 mg/2 mL suspension for nebulization RxNorm: 3 68539 USE 1 VIAL IN NEBULIZER TWICE DAILY (RINSE MOUTH AFTER EACH TREATMENT) 05/29/2022 No Stop Date Active Perforomist 20 mcg/2 mL solution for nebulization RxNorm: 12 71121 USE 1 VIAL IN NEBULIZER TWICE DAILY (MORNING AND EVENING) 05/29/2022 No Stop Date Acti ve Perforomist 20 mcg/2 mL solution for nebulization RxNorm: 12 36107 USE 1 VIAL IN NEBULIZER TWICE DAILY - morning and evening 05/26/2022 05/26/2022 Inac tive Perforomist 20 mcg/2 mL solution for nebulization RxNorm: 12 88749 USE 1 VIAL IN NEBULIZER TWICE DAILY - morning and evening 05/26/2022 05/26/2022 Inac tive budesonide 0.5 mg/2 mL suspension for nebulization RxNorm: 3 45972 USE 1 VIAL IN NEBULIZER TWICE DAILY - rinse mouth after treatment 05/26/2022 05/26/20 Inactive albuterol sulfate 2.5 mg/3 mL (0.083 %) solution for n ebulization RxNorm: 330173 USE 1 VIAL IN NEBULIZER DAILY - for rescue 05/26/2022 05/26/2022 Inactive budesonide 0.5 mg/2 mL suspension for nebulization RxNorm: 3 59500 USE 1 VIAL IN NEBULIZER TWICE DAILY - rinse mouth after treatment 05/26/2022 05/26/20 22 Inactive budesonide 0.5 mg/2 mL suspension for nebulization RxNorm: 3 93365 USE 1 VIAL IN NEBULIZER TWICE DAILY - rinse mouth after treatment 05/26/2022 05/26/20 Inactive losartan 50 mg tablet RxNorm: 009991 Take 1 Tablet(s) Oral two times a day 05/25/2022 05/25/2022 Inactive Synthroid 88 mcg tablet RxNorm: 800661 Take 1 Tablet(s) Oral QD 03/202206/22/2022 Inactive Astepro Allergy 205.5 mcg (0.15 %) nasal spray RxNorm: 85234 84 Take 1 [place] Nasal two times a day in each nostril 03/19/2022 No Stop Date Active Perforomist 20 mcg/2 mL solution for nebulization RxNorm: 12 00332 USE 1 VIAL IN NEBULIZER TWICE DAILY - morning and evening 02/17/2022 02/17/2022 [facility] tive Xarelto 15 mg tablet RxNorm: 6086054 Take 1 Tablet(s) Oral QD 02/1706/09/2022 Inactive budesonide 0.5 mg/2 mL suspension for nebulization RxNorm: 3 03806 USE 1 VIAL IN NEBULIZER TWICE DAILY - rinse mouth after treatment 02/05/2022 02/06/20 Inactive Perforomist 20 mcg/2 mL solution for nebulization RxNorm: 12 17685 USE 1 VIAL IN NEBULIZER TWICE DAILY - morning and evening 02/05/2022 02/05/2022 [facility] [place] tive albuterol sulfate 2.5 mg/3 mL (0.083 %) solution for n ebulization RxNorm: 289673 USE 1 VIAL IN NEBULIZER DAILY - for rescue 02/05/2022 02/05/2022 Inactive ipratropium bromide 0.02 % solution for inhalation RxNorm: 8 04897 USE 1 VIAL IN NEBULIZER EVERY 4 HOURS - and as needed 02/05/2022 02/16/2022 Inactive albuterol sulfate HFA 90 mcg/actuation aerosol inhaler RxNor m: 7582185 Take 2 Puff(s) Inhalation Q4H as needed as needed 01/27/2022 No Stop Date Activ e Synthroid 88 mcg tablet RxNorm: 365506 Take 1 Tablet(s) Oral QD 01/26/2022 Inactive BRAND NAME ONLY losartan 50 mg tablet RxNorm: 421554 TAKE ONE TABLET BY MOUTH DAILY , REPLACES 25MG DOSE 01/15/2022 07/13/2022 Inactive Symbicort 160 mcg-4.5 mcg/actuation HFA aerosol inhaler RxNo rm: 6401379 2 Puff(s) Inhalation two times a day 10/30/2021 11/28/2021 Inactive Symbicort 160 mcg-4.5 mcg/actuation HFA aerosol inhaler RxNo rm: 0702307 2 Puff(s) Inhalation two times a day 10/30/2021 10/30/2021 Inactive Synthroid 88 mcg tablet RxNorm: 237307 Take 1 Tablet(s) Oral QD 10/29/2021 Inactive Breo Ellipta 200 mcg-25 mcg/dose powder for inhalation RxNor m: 5635217 Inhale 1 Puff(s) Inhalation QD 10/29/2021 10/29/2021 Inactive Breo Ellipta 200 mcg-25 mcg/dose powder for inhalation RxNor m: 2699600 Inhale 1 Puff(s) Inhalation QD 10/29/2021 10/29/2021 Inactive replaces a dvair Flonase Allergy Relief 50 mcg/actuation nasal spray,suspensi on RxNorm: 6873423 2 [place] Nasal every night at bedtime 10/28/2021 10/28/2021 Inactive Synthroid 88 mcg tablet RxNorm: 926683 Take 1 Tablet(s) Oral QD 10/28/2021 Inactive BRAND NAME ONLY fluticasone 113 mcg-salmeterol 14 mcg/actuation breath activated powdr RxNorm: 8085996 Inhale 1 Puff(s) Inhalation QAM 10/28/2021 10/28/2021 Inactive losartan 50 mg tablet RxNorm: 221558 1 Tablet(s) Oral QD replac es 25mg dose 10/20/2021 10/20/2021 Inactive metoprolol succinate ER 100 mg tablet,extended release 24 hr RxNorm: 288900 1 Tablet(s) Oral QD 09/23/2021 06/09/2022 Inactive potassium chloride ER 8 mEq capsule,extended release RxNorm: 325597 Take 1 Capsule(s) Oral QOD with lasix 09/15/2021 03/18/2022 Inactive Synthroid 88 mcg tablet RxNorm: 549209 Take 1 Tablet(s) Oral QD 12/202110/27/2021 Inactive BRAND NAME ONLY potassium chloride ER 8 mEq capsule,extended release RxNorm: 429432 1 Capsule(s) Oral QOD with lasix 09/11/2021 09/11/2021 Inactive metoprolol succinate ER 100 mg tablet,extended release 24 hr RxNorm: 739139 Take 1/2 Tablet(s) Oral QD 08/21/2021 09/22/2021 Inactive Synthroid 88 mcg tablet RxNorm: 389762 Take 1 Tablet(s) Oral QD 07/23/2021 Inactive BRAND NAME ONLY clindamycin HCl 300 mg capsule RxNorm: 194168 Take 1 Ca psule(s) Oral three times a day 07/03/2021 07/09/2021 Inactive clindamycin HCl 300 mg capsule RxNorm: 596074 Take 1 Ca psule(s) Oral three times a day 07/03/2021 07/03/2021 Inactive Synthroid 88 mcg tablet RxNorm: 710478 Take 1 Tablet(s) Oral QD 07/03/2021 Inactive BRAND NAME ONLY0 potassium chloride ER 8 mEq capsule,extended release RxNorm: 549850 1 Capsule(s) Oral QOD with lasix 06/26/2021 09/11/2021 Inactive potassium chloride ER 8 mEq tablet,extended release RxNorm: 951631 Take 2 Tablet(s) Oral two times a day 06/23/2021 06/25/2021 Inactive atorvastatin 20 mg tablet RxNorm: 327374 Take 1 Tablet(s) Oral QD 0 06/19/2021 06/09/2022 Inactive diltiazem CD 300 mg capsule,extended release 24 hr RxNorm: 8 10104 Take 1 Capsule(s) Oral QAM 06/19/2021 08/20/2021 Inactive potassium chloride ER 8 mEq tablet,extended release RxNorm: 843464 Take 2 Tablet(s) Oral two times a day 06/19/2021 06/23/2021 Inactive fluticasone 113 mcg-salmeterol 14 mcg/actuation [facility]: 3011281 Inhale 1 Puff(s) Inhalation QAM 06/19/2021 10/27/2021 Inactive furosemide 40 mg tablet RxNorm: 528894 Take 1 Tablet(s) Oral QAM 03/18/2022 Inactive alprazolam 0.25 mg tablet RxNorm: 321991 Take 1 Tablet(s) Oral Q8H as needed 06/19/2021 07/29/2021 Inactive gabapentin 100 mg capsule RxNorm: 362635 Take 2 Capsule (s) Oral every night at bedtime 06/19/2021 07/29/2021 Inactive losartan 25 mg tablet RxNorm: 800171 Take 1 Tablet(s) Oral QD 06/1910/20/2021 Inactive tramadol 50 mg tablet RxNorm: 465773 Take 1 Tablet(s) O ral three times a day as needed 06/19/2021 10/27/2021 Inactive Tylenol Arthritis Pain 650 mg tablet,extended release RxNorm : 6941760 Take 1 Tablet(s) Oral four times a day 05/05/2021 03/18/2022 Inactive Synthroid 88 mcg tablet RxNorm: 609744 Take 1 Tablet(s) Oral QD 04/30/2021 Inactive BRAND NAME ONLY0 Synthroid 88 mcg tablet RxNorm: 999504 1 Tablet(s) Oral QD 04/29/20 21 04/29/2021 Inactive Synthroid 88 mcg tablet RxNorm: 958375 1 Tablet(s) Oral QD 04/29/2004/29/2021 Inactive magnesium oxide 400 mg (241.3 mg magnesium) tablet RxNorm: 1 86181 1 Tablet(s) Oral every night at bedtime 04/03/2021 No Stop Date Active Vitamin B12 1000mcg Tablet RxNorm: Take 1/2 Tablet(s) Oral QD 04/03/2021 No Stop Date Active aspirin 81 mg capsule RxNorm: 346710 1 Capsule(s) Oral QD No Stop Date Active doxazosin 1 mg tablet RxNorm: 758190 1 Tablet(s) Oral QPM 03/19/2021 04/02/2021 Inactive Cartia XT 240 mg capsule,extended release RxNorm: 021920 Take 1 Capsule(s) Oral QD 02/06/2021 06/18/2021 Inactive fluticasone propionate 50 mcg/actuation nasal spray,suspensi on RxNorm: 9030119 SHAKE LIQUID AND USE 2 SPRAYS IN EACH NOSTRIL EVERY NIGHT AT BEDTIME 12/19/2020 01/17/2021 Inactive diltiazem 120 mg tablet RxNorm: 816332 1 Tablet(s) Oral QD 12/12/1902/05/2021 Inactive Flonase Allergy Relief 50 mcg/actuation nasal spray,suspensi on RxNorm: 0909827 2 [place] Nasal every night at bedtime 11/21/2020 11/21/2020 Inactive diltiazem 120 mg tablet RxNorm: 498146 Take 1 Tablet(s) Oral tw o times a day 11/11/2020 12/10/2020 Inactive oxybutynin chloride 5 mg tablet RxNorm: 785458 Take 1 T ablet(s) Oral every night at bedtime for overactive bladder 11/11/2020 11/11/2020 Inactive oxybutynin chloride 5 mg tablet RxNorm: 000868 Take 1 T ablet(s) Oral every night at bedtime for overactive bladder 11/11/2020 11/11/2020 Inactive oxybutynin chloride 5 mg tablet RxNorm: 573193 TAKE 1 T ABLET BY MOUTH EVERY NIGHT AT BEDTIME FOR OVERACTIVE BLADDER 11/11/2020 02/05/2021 Inactive Patient requests 90 days supply MagOx 400 mg (241.3 mg magnesium) tablet RxNorm: 582506 TAKE 1 TABLET BY MOUTH EVERY OTHER DAY 10/28/2020 02/05/2021 Inactive Synthroid 75 mcg tablet RxNorm: 165220 TAKE 1 TABLET BY MOUTH EVERY DAY DIRECTED 09/06/2020 04/29/2021 Inactive diltiazem CD 120 mg capsule,extended release 24 hr RxNorm: 8 57519 1 Tablet(s) Oral QD 09/05/2020 11/10/2020 Inactive Synthroid 75 mcg tablet RxNorm: 615345 TAKE 1 TABLET BY MOUTH EVERY DAY DIRECTED 09/03/2020 09/05/2020 Inactive Synthroid 75 mcg tablet RxNorm: 039562 TAKE 1 TABLET BY MOUTH EVERY DAY DIRECTED 09/03/2020 09/02/2020 Inactive MagOx 400 mg (241.3 mg magnesium) tablet RxNorm: 880540 1 Table t(s) Oral QOD 07/30/2020 11/10/2020 Inactive MagOx 400 mg (241.3 mg magnesium) tablet RxNorm: 054618 1 Table t(s) Oral QOD 07/29/2020 07/29/2020 Inactive diltiazem CD 120 mg capsule,extended release 24 hr RxNorm: 8 38807 1 Tablet(s) Oral two times a day 07/29/2020 09/04/2020 Inactive diltiazem CD 120 mg capsule,extended release 24 hr RxNorm: 8 99285 1 Tablet(s) Oral two times a day 07/04/2020 07/03/2020 Inactive diltiazem CD 120 mg capsule,extended release 24 hr RxNorm: 8 00480 1 Tablet(s) Oral two times a day 07/04/2020 07/28/2020 Inactive Eliquis 5 mg tablet RxNorm: 3577286 TAKE 1 TABLET BY MOUTH TWICE DAILY 06/10/2020 02/16/2022 Inactive diltiazem CD 120 mg capsule,extended release 24 hr RxNorm: 8 64678 TAKE 1 CAPSULE BY MOUTH DAILY 06/10/2020 06/09/2020 Inactive Eliquis 5 mg tablet RxNorm: 9958515 TAKE 1 TABLET BY MOUTH TWICE DAILY 06/10/2020 06/09/2020 Inactive diltiazem CD 120 mg capsule,extended release 24 hr RxNorm: 8 93097 TAKE 1 CAPSULE BY MOUTH DAILY 06/10/2020 07/03/2020 Inactive Synthroid 75 mcg tablet RxNorm: 118728 TAKE 1 TABLET BY MOUTH EVERY DAY DIRECTED 06/10/2020 09/02/2020 Inactive Flonase Allergy Relief 50 mcg/actuation nasal spray,suspensi on RxNorm: 3438900 2 [place] Nasal every night at bedtime 04/26/2020 04/26/2020 Inactive Vitamin D3 25 mcg (1,000 unit) capsule RxNorm: 453432 3 Capsule (s) Oral QD 04/22/2020 No Stop Date Active MagOx 400 mg (241.3 mg magnesium) tablet RxNorm: 487985 1 Table t(s) Oral QOD 04/22/2020 04/21/2020 Inactive MagOx 400 mg (241.3 mg magnesium) tablet RxNorm: 347319 1 Table t(s) Oral QOD 04/22/2020 07/21/2020 Inactive prednisone 10 mg tablet RxNorm: 286803 1 Tablet(s) Oral two norma es a day 03/22/2020 03/27/2020 Inactive Eliquis 5 mg tablet RxNorm: 0557195 TAKE 1 TABLET BY MOUTH TWICE DAILY 03/15/2020 06/09/2020 Inactive Synthroid 75 mcg tablet RxNorm: 999573 TAKE 1 TABLET BY MOUTH EVERY DAY DIRECTED 03/15/2020 06/09/2020 Inactive furosemide 20 mg tablet RxNorm: 273188 1 Tablet(s) Oral QAM as needed 03/14/2020 06/20/2020 Inactive diltiazem CD 120 mg capsule,extended release 24 hr RxNorm: 8 13187 TAKE 1 CAPSULE BY MOUTH DAILY 03/14/2020 06/09/2020 Inactive amiodarone 200 mg tablet RxNorm: 306884 TAKE 1 TABLET BY MOUTH SIMON Y 03/14/2020 06/23/2020 Inactive potassium chloride ER 20 mEq tablet,extended release RxNorm: 854528 1 Tablet(s) Oral two times a day as needed 02/29/2020 06/20/2020 Inactive furosemide 20 mg tablet RxNorm: 064671 1 Tablet(s) Oral QAM as needed 02/29/2020 03/13/2020 Inactive Macrobid 100 mg capsule RxNorm: 497825 1 Capsule(s) Oral two ti mes a day 02/15/2020 02/18/2020 Inactive Macrobid 100 mg capsule RxNorm: 355308 1 Capsule(s) Oral two ti mes a day 02/15/2020 02/14/2020 Inactive magnesium oxide 400 mg (241.3 mg magnesium) tablet RxNorm: 1 02027 TAKE 1/2 TABLET BY MOUTH EVERY DAY 01/30/2020 02/21/2020 Inactive Flonase Allergy Relief 50 mcg/actuation nasal spray,suspensi on RxNorm: 6005245 2 [place] Nasal every night at bedtime 01/22/2020 04/25/2020 Inactive furosemide 20 mg tablet RxNorm: 402861 1 Tablet(s) Oral QOD 020 02/12/2020 Inactive potassium chloride ER 20 mEq tablet,extended release RxNorm: 957852 1 Tablet(s) Oral two times a day 01/04/2020 02/12/2020 Inactive potassium chloride ER 20 mEq tablet,extended release RxNorm: 042515 TAKE 1 TABLET BY MOUTH TWICE DAILY 01/03/2020 01/03/2020 Inactive diltiazem CD 120 mg capsule,extended release 24 hr RxNorm: 8 54429 1 Capsule(s) Oral QD 12/26/2019 03/13/2020 Inactive Colace 100 mg capsule RxNorm: 0211538 2 Capsule(s) Oral QD 12/26/19 20 03/18/2022 Inactive Flonase Allergy Relief 50 mcg/actuation nasal spray,suspensi on RxNorm: 0930266 2 SPRAY NASAL QHS 12/26/2019 12/28/2019 Inactive amiodarone 200 mg tablet RxNorm: 370409 1 Tablet(s) Oral QD 020 01/21/2020 Inactive Eliquis 5 mg tablet RxNorm: 1534605 1 Tablet(s) Oral two times a da y 12/26/2019 03/14/2020 Inactive potassium chloride ER 20 mEq tablet,extended release RxNorm: 359109 2 Tablet(s) Oral QD with furosemide 12/20/2019 01/21/2020 Inactive furosemide 20 mg tablet RxNorm: 390922 1 Tablet(s) Oral QAM 020 01/18/2020 Inactive Synthroid 75 mcg tablet RxNorm: 504693 1 Tablet(s) Oral QD 12/18/19 20 02/16/2020 Inactive potassium chloride ER 20 mEq tablet,extended release RxNorm: 708848 2 Tablet(s) Oral QOD with furosemide 11/29/2019 12/19/2019 Inactive furosemide 40 mg tablet RxNorm: 746556 1 Tablet(s) Oral QOD 020 12/19/2019 Inactive amlodipine 5 mg tablet RxNorm: 571545 1 Tablet(s) Oral every ni ght at bedtime 11/27/2019 12/18/2019 Inactive Lasix 40 mg tablet RxNorm: 342860 1 Tablet(s) Oral QAM 11/23/2019 Inactive potassium chloride ER 20 mEq tablet,extended release RxNorm: 826089 TAKE 1 TABLET BY MOUTH TWICE DAILY 1 Tablet(s) Oral QD 11/23/2019 02/12/2020 Inactive Lasix 40 mg tablet RxNorm: 1 Tablet(s) Oral QAM 11/23/2019 Inactive potassium chloride ER 20 mEq tablet,extended release RxNorm: 19800612 TAKE 1 TABLET BY MOUTH TWICE DAILY 1 Tablet(s) Oral QD 11/23/2019 11/22/2019 Inactive cefdinir 300 mg capsule RxNorm: 322110 1 Capsule(s) Oral two ti mes a day 11/09/2019 11/16/2019 Inactive temazepam 15 mg capsule RxNorm: 097192 TAKE 1 CAPSULE B Y MOUTH EVERY NIGHT AT BEDTIME 11/06/2019 12/18/2019 Inactive magnesium oxide 400 mg (241.3 mg magnesium) tablet RxNorm: 1 33086 TAKE 1/2 TABLET BY MOUTH EVERY DAY 11/03/2019 2020 Inactive Synthroid 75 mcg tablet RxNorm: 512254 TAKE 1 TABLET BY MOUTH E VERY DAY 10/16/2019 12/17/2019 Inactive potassium chloride ER 20 mEq tablet,extended release RxNorm: 723531 TAKE 1 TABLET BY MOUTH TWICE DAILY 10/02/2019 11/28/2019 Inactive baclofen 10 mg tablet RxNorm: 527981 1/2-1 Tablet(s) Or al QPM as needed for muscle spasm 09/21/2019 01/21/2020 Inactive hydrochlorothiazide 25 mg tablet RxNorm: 385856 TAKE 1 TABLET BY MOUTH EVERY MORNING 09/21/2019 11/26/2019 Inactive amlodipine 5 mg tablet RxNorm: 917269 TAKE 1 TABLET BY MOUTH TW ICE DAILY 09/06/2019 11/27/2019 Inactive magnesium oxide 400 mg (241.3 mg magnesium) tablet RxNorm: 1 95595 TAKE 1/2 TABLET BY MOUTH EVERY DAY 09/06/2019 11/02/2019 Inactive temazepam 15 mg capsule RxNorm: 874117 TAKE 1 CAPSULE B Y MOUTH EVERY DAY AT BEDTIME 09/04/2019 11/05/2019 Inactive baclofen 10 mg tablet RxNorm: 257131 1/2-1 Tablet(s) Or al QPM as needed for muscle spasm 08/25/2019 09/20/2019 Inactive Synthroid 75 mcg tablet RxNorm: 295244 TAKE 1 TABLET BY MOUTH E VERY DAY 08/17/2019 10/15/2019 Inactive Cytomel 5 mcg tablet RxNorm: 291843 TAKE 1 TABLET BY MOUTH EVERY DA Y 08/13/2019 01/21/2020 Inactive potassium chloride ER 20 mEq tablet,extended release RxNorm: 826796 TAKE 1 TABLET BY MOUTH TWICE DAILY 07/06/2019 10/01/2019 Inactive Synthroid 75 mcg tablet RxNorm: 739157 1 Tablet(s) Oral QD Recheck labs in 2 months 06/21/2019 08/16/2019 Inactive Recheck labs in 2 months Synthroid 75 mcg tablet RxNorm: 385977 1 Tablet(s) Oral QD Recheck labs in 2 months 06/21/2019 06/20/2019 Inactive Recheck labs in 2 months amlodipine 5 mg tablet RxNorm: 204056 TAKE 1 TABLET BY MOUTH TW ICE DAILY 06/11/2019 09/05/2019 Inactive Diflucan 100 mg tablet RxNorm: 153031 1 Tablet(s) Oral QD 05/29/2019 06/04/2019 Inactive Zithromax Z-Topher 250 mg tablet RxNorm: 370295 Tablet(s) Oral as directed 05/29/2019 05/28/2019 Inactive Zithromax Z-Topher 250 mg tablet RxNorm: 993650 Tablet(s) Oral as directed 05/29/2019 05/29/2019 Inactive Diflucan 100 mg tablet RxNorm: 022711 1 Tablet(s) Oral QD 05/29/2019 05/28/2019 Inactive cefdinir 300 mg capsule RxNorm: 835611 1 Capsule(s) Oral two ti mes a day 05/19/2019 05/22/2019 Inactive Synthroid 50 mcg tablet RxNorm: 505987 1 TABLET(S) PO QD 05/18/2019 0 06/20/2019 Inactive lab draw in 2 months to recheck thyroid temazepam 15 mg capsule RxNorm: 194437 TAKE 1 CAPSULE B Y MOUTH EVERY DAY AT BEDTIME 05/18/2019 07/16/2019 Inactive Cytomel 5 mcg tablet RxNorm: 391134 1 Tablet(s) Oral QD 05/18/2019 Inactive cefdinir 300 mg capsule RxNorm: 573770 1 Capsule(s) Oral two ti mes a day 05/18/2019 05/18/2019 Inactive magnesium oxide 400 mg (241.3 mg magnesium) tablet RxNorm: 1 32254 1/2 TABLET(S) PO QD 05/10/2019 05/10/2019 Inactive temazepam 15 mg capsule RxNorm: 214998 TAKE 1 CAPSULE B Y MOUTH EVERY DAY AT BEDTIME 05/09/2019 05/16/2019 Inactive magnesium oxide 400 mg (241.3 mg magnesium) tablet RxNorm: 1 36683 1/2 TABLET(S) PO QD 05/02/2019 05/09/2019 Inactive nystatin 100,000 unit/mL oral suspension RxNorm: 809519 5 Milliliter(s) Oral four times a day 04/24/2019 05/07/2019 Inactive cephalexin 500 mg capsule RxNorm: 937188 1 Capsule(s) Oral thre e times a day 04/21/2019 04/27/2019 Inactive cephalexin 500 mg capsule RxNorm: 123157 1 Capsule(s) Oral thre e times a day 04/21/2019 04/20/2019 Inactive potassium chloride ER 20 mEq tablet,extended release RxNorm: 129711 1 Tablet(s) Oral two times a day 04/10/2019 07/05/2019 Inactive Patient r equests 90 days supplyPatient requests 90 days supply nystatin 100,000 unit/mL oral suspension RxNorm: 189583 5 Milliliter(s) Oral four times a day 04/10/2019 04/23/2019 Inactive Diflucan 100 mg tablet RxNorm: 000073 1 Tablet(s) Oral QD 04/10/2019 04/17/2019 Inactive temazepam 15 mg capsule RxNorm: 227182 TAKE 1 CAPSULE B Y MOUTH EVERY DAY AT BEDTIME 04/04/2019 05/03/2019 Inactive Synthroid 50 mcg tablet RxNorm: 561832 1 TABLET(S) PO QD 04/04/2019 1 07/18/2018 Inactive lab draw in 2 months to recheck thyroid magnesium oxide 400 mg (241.3 mg magnesium) tablet RxNorm: 1 84741 1 Tablet(s) Oral QOD 04/04/2019 02/21/2020 Inactive hydrochlorothiazide 25 mg tablet RxNorm: 323349 1 Tablet(s) Oral QA M 03/28/2019 09/20/2019 Inactive amlodipine 5 mg tablet RxNorm: 287796 1 TABLET(S) PO BID 03/15/2019 0 06/12/2019 Inactive magnesium oxide 400 mg (241.3 mg magnesium) tablet RxNorm: 1 49746 1/2 TABLET(S) PO QD 03/06/2019 04/03/2019 Inactive Cytomel 5 mcg tablet RxNorm: 880189 1 Tablet(s) PO QD 02/20/201902/05 Inactive Cytomel 5 mcg tablet RxNorm: 783080 1 Tablet(s) PO QD 02/20/201905/07 Inactive amlodipine 5 mg tablet RxNorm: 070970 1 Tablet(s) PO BID 02/16/2019 0 02/15/2019 Inactive amlodipine 5 mg tablet RxNorm: 313990 1 Tablet(s) PO BID 02/16/2019 1 07/17/2018 Inactive amlodipine 5 mg tablet RxNorm: 337959 1 Tablet(s) PO BID 02/16/2019 0 02/16/2019 Inactive Synthroid 50 mcg tablet RxNorm: 607315 1 TABLET(S) PO QD 02/13/2019 1 Inactive Synthroid 50 mcg tablet RxNorm: 551352 1 TABLET(S) PO QD 01/16/2019 0 02/12/2019 Inactive magnesium oxide 400 mg (241.3 mg magnesium) tablet RxNorm: 1 12957 1/2 Tablet(s) PO QD 01/11/2019 03/05/2019 Inactive temazepam 15 mg capsule RxNorm: 420851 1 Capsule(s) PO QHS 01/04/20 19 04/03/2019 Inactive cefdinir 300 mg capsule RxNorm: 648912 1 Capsule(s) PO BID 12/22/19 19 12/20/2018 Inactive cefdinir 300 mg capsule RxNorm: 301000 1 Capsule(s) PO BID 12/22/19 19 12/24/2018 Inactive hydrochlorothiazide 25 mg tablet RxNorm: 876818 1 Tablet(s) PO QAM 12/19/2018 03/27/2019 Inactive magnesium oxide 400 mg (241.3 mg magnesium) tablet RxNorm: 1 18278 1/2 Tablet(s) PO QD 12/15/2018 01/11/2019 Inactive magnesium oxide 400 mg (241.3 mg magnesium) tablet RxNorm: 1 46499 1/2 Tablet(s) PO QD 12/15/2018 12/14/2018 Inactive Flonase Allergy Relief 50 mcg/actuation nasal spray,suspensi on RxNorm: 9384616 2 SPRAY NASAL QHS 11/09/2018 12/11/2018 Inactive temazepam 15 mg capsule RxNorm: 465909 1 Capsule(s) PO QHS 11/08/19 19 01/02/2019 Inactive Synthroid 50 mcg tablet RxNorm: 485445 1 Tablet(s) PO QD 10/21/2018 0 01/15/2019 Inactive potassium chloride ER 20 mEq tablet,extended release RxNorm: 167173 Tablet(s) 1 TABLET(S) PO BID 10/19/2018 04/09/2019 Inactive Patient reque sts 90 days supplyPatient requests 90 days supply Flonase Allergy Relief 50 mcg/actuation nasal spray,suspensi on RxNorm: 7130084 2 SPRAY NASAL QHS 10/14/2018 12/11/2018 Inactive Patient reques ts 90 days supply Flonase Allergy Relief 50 mcg/actuation nasal spray,suspensi on RxNorm: 6124944 2 [place] NASAL QHS 10/13/2018 10/13/2018 Inactive temazepam 15 mg capsule RxNorm: 656639 1 Capsule(s) PO QHS 10/06/19 19 11/06/2018 Inactive Synthroid 50 mcg tablet RxNorm: 077440 1 Tablet(s) PO QD 10/05/2018 0 10/20/2018 Inactive promethazine 6.25 mg/5 mL oral syrup RxNorm: 527750 5 M illiliter(s) PO Q6H as needed for cough 09/30/2018 12/11/2018 Inactive promethazine-DM 6.25 mg-15 mg/5 mL oral syrup RxNorm: 852334 5 PO Q6H as needed for cough 09/30/2018 12/11/2018 Inactive prednisone 10 mg tablet RxNorm: 846037 1 Tablet(s) PO QD 09/27/2018 0 09/26/2018 Inactive prednisone 10 mg tablet RxNorm: 198953 1 Tablet(s) PO QD 09/27/2018 0 10/03/2018 Inactive cefdinir 300 mg capsule RxNorm: 467157 1 Capsule(s) PO BID 09/24/19 19 09/29/2018 Inactive Macrobid 100 mg capsule RxNorm: 164140 1 Capsule(s) PO BID 09/21/19 19 09/25/2018 Inactive potassium chloride ER 20 mEq tablet,extended release RxNorm: 693303 1 TABLET(S) PO BID 09/14/2018 10/13/2018 Inactive Patient reques ts 90 days supplyPatient requests 90 days supply potassium chloride ER 20 mEq tablet,extended release RxNorm: 903093 1 Tablet(s) PO BID 09/12/2018 09/13/2018 Inactive Patient reques ts 90 days supply Macrobid 100 mg capsule RxNorm: 506622 1 Capsule(s) PO BID 09/06/19 19 09/11/2018 Inactive potassium chloride ER 20 mEq tablet,extended release RxNorm: 411064 1 TABLET(S) PO QD 1 TABLET(S) PO QD 08/26/2018 09/11/2018 Inactive Patien t requests 90 days supply potassium chloride ER 20 mEq tablet,extended release RxNorm: 108570 1 Tablet(s) PO QD 1 TABLET(S) PO QD 08/26/2018 08/25/2018 Inactive potassium chloride ER 20 mEq tablet,extended release RxNorm: 842498 1 TABLET(S) PO QD 08/25/2018 08/25/2018 Inactive Synthroid 50 mcg tablet RxNorm: 642040 1 TABLET(S) PO QD DAW1 08/2309/04/2018 Inactive potassium chloride ER 20 mEq tablet,extended release RxNorm: 321064 1 Tablet(s) PO QD 07/28/2018 08/24/2018 Inactive potassium chloride ER 20 mEq tablet,extended release RxNorm: 016375 1 Tablet(s) PO QD 07/28/2018 07/27/2018 Inactive hydrochlorothiazide 25 mg tablet RxNorm: 260001 1 Tablet(s) PO QAM 06/27/2018 12/18/2018 Inactive Synthroid 50 mcg tablet RxNorm: 656060 1 Tablet(s) PO QD DAW06/2708/22/2018 Inactive Synthroid 50 mcg tablet RxNorm: 290490 1 TABLET(S) PO QD 06/1306/26/2018 Inactive Synthroid 75 mcg tablet RxNorm: 855664 1 TABLET(S) PO QD 06/13/2018 0 09/04/2018 Inactive BRAND ONLY mupirocin 2 % topical ointment RxNorm: 913096 1 Applica tion TOP BID to affected area as needed 05/03/2018 09/14/2018 Inactive hydrochlorothiazide 25 mg tablet RxNorm: 471172 1 TABLET(S) PO QD 1 07/02/2017 06/26/2018 Inactive Synthroid 50 mcg tablet RxNorm: 859130 1 Tablet(s) PO QD DAW04/1506/12/2018 Inactive Synthroid 50 mcg tablet RxNorm: 466553 1 Tablet(s) PO QD DAW1 04/1504/14/2018 Inactive Synthroid 75 mcg tablet RxNorm: 329129 1 Tablet(s) PO QD 03/15/2018 1 06/14/2017 Inactive BRAND ONLY temazepam 15 mg capsule RxNorm: 606848 1 Capsule(s) PO QHS 03/15/20 18 06/12/2018 Inactive Synthroid 75 mcg tablet RxNorm: 540504 1 Tablet(s) PO QD 01/27/2018 1 Inactive BRAND ONLY Synthroid 75 mcg tablet RxNorm: 527408 1 Tablet(s) PO QD (6 day s per week) 01/17/2018 01/26/2018 Inactive BRAND ONLY Duexis 800 mg-26.6 mg tablet RxNorm: 4240350 1/2 Tablet(s) PO BID 0 10/20/2017 10/22/2017 Inactive Synthroid 75 mcg tablet RxNorm: 996795 1 Tablet(s) PO QD 09/17/2017 1 Inactive BRAND ONLY hydrochlorothiazide 25 mg tablet RxNorm: 531553 1 TABLET(S) PO QD 0 08/30/2017 05/01/2018 Inactive hydrochlorothiazide 25 mg tablet RxNorm: 965609 1 Tablet(s) PO QAM 06/03/2017 09/14/2018 Inactive hydrochlorothiazide 12.5 mg tablet RxNorm: 411548 1 Tablet(s) PO QA M 05/25/2017 06/02/2017 Inactive Synthroid 75 mcg tablet RxNorm: 052458 1 Tablet(s) PO QD 05/14/2017 0 09/17/2017 Inactive BRAND ONLY Restoril 15 mg capsule RxNorm: 821252 TAKE 1 CAPSULE BY MOUTH EVERY NIGHT AT BEDTIME NEEDED 03/05/2017 04/02/2017 Inactive Synthroid 75 mcg tablet RxNorm: 313287 1 Tablet(s) PO QD 01/18/2017 1 07/15/2016 Inactive BRAND ONLY Synthroid 50 mcg tablet RxNorm: 091343 1 Tablet(s) PO QD 01/13/2017 0 01/17/2017 Inactive tizanidine 2 mg tablet RxNorm: 612745 1 Tablet(s) PO QHS for spasm 01/04/2017 03/21/2017 Inactive tizanidine 2 mg tablet RxNorm: 130339 1 Tablet(s) PO QHS for spasm 12/17/2016 01/04/2017 Inactive hydrochlorothiazide 25 mg tablet RxNorm: 885745 1 Tablet(s) PO QD 0 12/04/2016 01/03/2017 Inactive Synthroid 50 mcg tablet RxNorm: 358677 1 Tablet(s) PO QD as directe d 11/18/2016 01/13/2017 Inactive Synthroid 75 mcg tablet RxNorm: 580195 1 Tablet(s) PO QD as directe d 11/18/2016 01/10/2017 Inactive Restoril 15 mg capsule RxNorm: 116284 1 Capsule(s) PO QHS as ne eded for sleep 11/16/2016 03/05/2017 Inactive losartan 50 mg tablet RxNorm: 860497 1 Tablet(s) PO BID 10/19/2016 Inactive prednisone 20 mg tablet RxNorm: 505754 1 Tablet(s) PO QD 10/08/2016 0 10/07/2016 Inactive clindamycin 300 mg capsule RxNorm: 950709 1 Capsule(s) PO TID 10/0810/17/2016 Inactive prednisone 20 mg tablet RxNorm: 443878 1 Tablet(s) PO QD 10/08/2016 0 10/12/2016 Inactive clindamycin 300 mg capsule RxNorm: 618649 1 Capsule(s) PO TID 10/0810/07/2016 Inactive cephalexin 500 mg capsule RxNorm: 859727 1 Capsule(s) PO TID 201610/07/2016 Inactive levothyroxine 75 mcg tablet RxNorm: 486305 TAKE 1 TABLET BY TONE TH EVERY DAY 10/02/2016 10/04/2016 Inactive levothyroxine 75 mcg tablet RxNorm: 520616 1 Tablet(s) PO QD 201610/04/2016 Inactive Restoril 15 mg capsule RxNorm: 811929 1 Capsule(s) PO QHS 08/23/2016 11/15/2016 Inactive levothyroxine 75 mcg tablet RxNorm: 782380 1 Tablet(s) PO QD 201608/19/2016 Inactive levothyroxine 75 mcg tablet RxNorm: 107452 1 Tablet(s) PO QD 201609/09/2016 Inactive levothyroxine 50 mcg capsule RxNorm: 387283 1 Capsule(s) PO QD 06/201608/19/2016 Inactive hydrochlorothiazide 25 mg tablet RxNorm: 102341 1 Tablet(s) PO QD 0 06/23/2016 12/03/2016 Inactive amoxicillin 500 mg tablet RxNorm: 373515 1 Tablet(s) PO TID 016 06/03/2016 Inactive doxycycline hyclate 100 mg capsule RxNorm: 5761442 1 Capsule(s) PO BID 06/03/2016 06/12/2016 Inactive doxycycline hyclate 100 mg capsule RxNorm: 6850140 1 Capsule(s) PO BID 06/03/2016 06/02/2016 Inactive levothyroxine 75 mcg tablet RxNorm: 477112 1 Tablet(s) PO QD 201505/19/2016 Inactive losartan 50 mg tablet RxNorm: 980671 1 TABLET(S) PO BID 04/07/2016 Inactive metoprolol succinate ER 50 mg tablet,extended release 24 hr RxNorm: 476849 1 TABLET(S) PO QHS AND 1/2 TAB IN THE AM--REPLACES 25MG DOSE 04/03/2016 07/27/2016 Inactive Restoril 15 mg capsule RxNorm: 828184 1 Capsule(s) PO QHS as ne eded for sleep 02/24/2016 05/23/2016 Inactive hydrochlorothiazide 12.5 mg tablet RxNorm: 940163 1 Tab let(s) PO QD replaces 25mg dose 01/13/2016 06/22/2016 Inactive metoprolol succinate ER 50 mg tablet,extended release 24 hr RxNorm: 030437 1 Tablet(s) PO QHS and 1/2 tab in the AM--replaces 25mg dose 10/17/2015 04/02/2016 Inactive amlodipine 2.5 mg tablet RxNorm: 404315 1 Tablet(s) PO QHS 10/08/19 16 10/07/2015 Inactive amlodipine 2.5 mg tablet RxNorm: 109821 1 Tablet(s) PO QHS 10/08/19 16 10/16/2015 Inactive losartan 50 mg tablet RxNorm: 225851 1 TABLET(S) PO BID 09/23/2015 Inactive Medrol (Topher) 4 mg tablets in a dose pack RxNorm: 730840 Take as directed 09/03/2015 10/07/2015 Inactive Lasix 40 mg tablet RxNorm: 828546 1 TABLET(S) PO QD PRN FOR SWELLIN G 08/27/2015 12/04/2015 Inactive Lasix 40 mg tablet RxNorm: 824429 1 Tablet(s) PO QD prn for swellin g 08/01/2015 08/26/2015 Inactive losartan 50 mg tablet RxNorm: 619611 1 Tablet(s) PO BID 06/27/2015 Inactive Zyrtec 10 mg tablet RxNorm: 7279919 1 Tablet(s) PO QD 12/05/2015 Active magnesium oxide 400 mg (241.3 mg magnesium) tablet RxNorm: 35202 1 oral 05/25/2022 Active levothyroxine 50 mcg capsule RxNorm: 233651 1 Capsule(s) PO QD 06/201607/07/2016 Inactive sotalol 80 mg tablet RxNorm: 5379309 1/2 Tablet(s) PO BID 09/05/2018 09/04/2018 Inactive melatonin 1 mg tablet RxNorm: 485900 1 Tablet(s) PO QHS as need ed for sleep 12/05/2015 12/04/2015 Inactive levothyroxine 75 mcg tablet RxNorm: 978666 1 Tablet(s) PO 6 day s a week 07/08/2016 07/07/2016 Inactive Vitamin D3 1,000 unit tablet RxNorm: 279242 1 Tablet(s) PO QD 12/0412/04/2015 Inactive sotalol 80 mg tablet RxNorm: 6343832 1 Tablet(s) PO BID 08/30/2017 Inactive Synthroid 75 mcg tablet RxNorm: 400251 2 Tablet(s) PO M, W, F 09/1509/14/2018 Inactive tizanidine 2 mg tablet RxNorm: 960263 1 Tablet(s) PO QHS for spasm 12/17/2016 12/16/2016 Inactive Nasacort AQ 55 mcg nasal spray aerosol RxNorm: 4035767 [place] ANNELIESE [place] as needed 12/12/2018 12/11/2018 Inactive fluocinonide 0.05 % topical gel RxNorm: 831029 TOP as needed on gum s 07/28/2016 07/27/2016 Inactive Flonase Allergy Relief 50 mcg/actuation nasal spray,suspensi on RxNorm: 2017992 2 [place] NASAL QHS 10/13/2018 10/12/2018 Inactive Synthroid 50 mcg tablet RxNorm: 335086 1 Tablet(s) PO Naseem, Hernandez, Todd, 09/20/2018 09/19/2018 Inactive Osteo Bi-Flex (5-Loxin) 1,500 mg-400 unit-100 mg tablet RxNo rm: 1 Tablet(s) PO QD 12/05/2015 12/04/2015 Inactive hydrochlorothiazide 25 mg tablet RxNorm: 357070 1/2 Tablet(s) PO QA M 01/13/2016 01/12/2016 Inactive metoprolol succinate ER 25 mg tablet,extended release 24 hr RxNorm: 446913 1 Tablet(s) PO QD 10/17/2015 10/16/2015 Inactive promethazine-DM 6.25 mg-15 mg/5 mL oral syrup RxNorm: 758673 5 PO Q6H as needed for cough 09/30/2018 09/29/2018 Inactive Synthroid 50 mcg tablet RxNorm: 128450 1 Tablet(s) PO QD 10/05/2018 0 10/04/2018 Inactive mupirocin 2 % topical ointment RxNorm: 603752 1 Applica tion TOP BID to affected area as needed 05/03/2018 05/02/2018 Inactive hydrochlorothiazide 25 mg tablet RxNorm: 902197 1 Tablet(s) PO QOD 01/13/2016 01/12/2016 Inactive Vitamin D3 1000 units Capsule RxNorm: 1 Capsule(s) PO QD 9 12/11/2018 Inactive levothyroxine 75 mcg tablet RxNorm: 946865 1 Tablet(s) PO QD 201505/07/2016 Inactive potassium chloride ER 10 mEq capsule,extended release RxNorm : 228337 1 Capsule(s) PO QD 12/05/2015 12/04/2015 Inactive aspirin 81 mg tablet RxNorm: 811018 1 Tablet(s) PO QHS 01/22/2020 Inactive Claritin 10 mg tablet RxNorm: 819850 1 Tablet(s) PO QD 12/05/2015 Inactive Vitamin B12 1000mcg Tablet RxNorm: 1/2 Tablet(s) PO QD 12/12/2018 12/11/2018 Inactive temazepam 15 mg capsule RxNorm: 433823 1 Capsule(s) PO QHS 03/15/20 18 03/14/2018 Inactive hydrochlorothiazide 25 mg tablet RxNorm: 793452 1 Tablet(s) PO QAM 12/05/2015 12/04/2015 Inactive sotalol 80 mg tablet RxNorm: 0463505 1/2 Tablet(s) PO QD 09/22/2018 0 09/21/2018 Inactive mupirocin 2 % topical ointment RxNorm: 873601 TOP as needed 017 08/24/2016 Inactive hydrochlorothiazide 25 mg tablet RxNorm: 935787 1/2 Tablet(s) PO QA M 05/25/2017 05/24/2017 Inactive amlodipine 10 mg tablet RxNorm: 552256 1 Tablet(s) PO QD 02/16/2019 0 02/15/2019 Inactive Citracal + D Slow Release 600 mg calcium-500 unit tablet,ext .release RxNorm: 2 Tablet(s) PO QD 02/16/2019 02/15/2019 Inactive triamcinolone acetonide 0.1 % topical cream RxNorm: 5102889 TOP as needed 12/12/2018 12/11/2018 Inactive Restoril 15 mg capsule RxNorm: 566084 1 Capsule(s) PO QHS 02/24/2016 02/23/2016 Inactive hydrochlorothiazide 25 mg tablet RxNorm: 343934 1/2 Tablet(s) PO QO D 01/13/2016 01/12/2016 Inactive promethazine 6.25 mg/5 mL oral syrup RxNorm: 335431 5 M illiliter(s) PO Q6H as needed for cough 09/30/2018 09/29/2018 Inactive Centrum Silver Women 8 mg iron-400 mcg-300 mcg tablet RxNorm : 1 Tablet(s) PO QD 08/30/2017 08/29/2017 Inactive losartan 50 mg tablet RxNorm: 106581 1 Tablet(s) PO QHS 01/04/2017 Inactive levothyroxine 75 mcg tablet RxNorm: 435203 1 Tablet(s) PO 6 day s a week 10/05/2016 10/04/2016 Inactive losartan 50 mg tablet RxNorm: 321297 2 Tablet(s) PO QD 06/27/2015 Inactive Culturelle 10 billion cell capsule RxNorm: 776091 1-2 Capsule(s ) PO QD 05/10/2019 05/09/2019 Inactive Culturelle 10 billion cell capsule RxNorm: 931213 1 Capsule(s) PO Q D 08/30/2017 08/29/2017 Inactive Synthroid 75 mcg tablet RxNorm: 379283 1 Tablet(s) PO [facility] [place] 01/18/2017 01/17/2017 Inactive Medication Administered No Medication [...] Code Item Item Code Result Date S [facility] Location COMPLETE BLOOD COUNT [id number] WBC 6.5 10e9/L 09/27/19 19 Unknown COMPLETE BLOOD COUNT [id number] RBC 4.22 10e12/L 2018 Unknown COMPLETE BLOOD COUNT [id number] HEMOGLOBIN 13.3 g/dL 09/27/19 19 Unknown COMPLETE BLOOD COUNT [id number] HEMATOCRIT 38.7 % 09/27/19 19 Unknown COMPLETE BLOOD COUNT [id number] MCV 91.7 fL 9 Unknown COMPLETE BLOOD COUNT 4083758 MCH 31.5 pg 9 Unknown COMPLETE BLOOD COUNT 5360650 MCHC 34.4 g/dL 9 Unknown COMPLETE BLOOD COUNT [id number] PLATELET COUNT 326 10e9/L Unknown COMPLETE BLOOD COUNT 1262174 Mean Plt Volume 8.9 fL Unknown COMPLETE BLOOD COUNT 9515295 Neut Auto 69.0 % 9 Unknown COMPLETE BLOOD COUNT [id number] Lymph Auto 16.5 % 09/27/19 19 Unknown COMPLETE BLOOD COUNT [id number] Wirt Auto 8.3 % 9 Unknown COMPLETE BLOOD COUNT 2982846 Eos Auto 5.9 % 9 Unknown COMPLETE BLOOD COUNT [id number] RDW 12.2 % 9 Unknown COMPLETE BLOOD COUNT 4271361 Baso Auto 0.3 % 9 Unknown COMPLETE BLOOD COUNT 9029005 Neutrophil Abs 4.48 10e9/L Unknown COMPLETE BLOOD COUNT [id number] Lymphocyte Abs 1.07 10e9/L Unknown COMPLETE BLOOD COUNT [id number] Monocyte Abs 0.54 10e9/L 09/06 Unknown COMPLETE BLOOD COUNT [id number] Eosinophil Abs 0.38 10e9/L Unknown COMPLETE BLOOD COUNT [id number] Basophil Abs 0.02 10e9/L 09/06 Unknown COMPLETE BLOOD COUNT [id number] RDW-SD 39.8 fL 9 Unknown GFR CALC 1509431 GFR Non Afr Amr >60 mL/min 12/12/2015 Un known GFR CALC [id number] GFR Afr Amr >60 mL/min 12/12/2015 [place] [address] Glucose 100 mg/dL 12/11 [place] [address] CREATININE 0.78 mg/dL 12/2015 [place] [address] BUN 14 mg/dL 12/11 [place] [address] SODIUM 132 mmol/L 12/2015 [place] [address] POTASSIUM 3.6 mmol/L 12/2015 [place] [address] CHLORIDE 97 mmol/L 12/11 [place] [address] Bicarbonate 28 mmol/L 12/2015 [place] [address] AGAP 7 mmol/L 12/11 [place] [address] CALCIUM 9.3 mg/dL 12/11 [place] [address] Glucose 92 mg/dL 12/04 [place] [address] CREATININE 0.76 mg/dL [place] [address] BUN 8 mg/dL 12/04 [place] [address] SODIUM 133 mmol/L 11/07 [place] [address] POTASSIUM 4.1 mmol/L 11/07 [place] [address] CHLORIDE 97 mmol/L 12/04 [place] [address] Bicarbonate 27 mmol/L [place] [address] AGAP 9 mmol/L 12/04 [place] [address] CALCIUM 9.8 mg/dL 12/04 Unknown GFR CALC [id number] GFR Afr Amr >60 mL/min 12/05/2015 Unknow n COMPREHENSIVE METABOLIC 90650 AST 36 U/L 2015 Unknown COMPREHENSIVE METABOLIC 23990 ALT 41 U/L 2015 Unknown COMPREHENSIVE METABOLIC 15154 BUN 11 mg/dL 2015 Unknown COMPREHENSIVE METABOLIC 75667 ALBUMIN 4.2 g/dL 2015 Unknown COMPREHENSIVE METABOLIC 50804 CHLORIDE 93 mmol/L 2015 Unknown COMPREHENSIVE METABOLIC 66193 Bili Total 1.0 mg/dL 11/24 Unknown COMPREHENSIVE METABOLIC 58901 ALK PHOS 79 U/L 2015 Unknown COMPREHENSIVE METABOLIC 43093 SODIUM 128 mmol/L 11/24 Unknown COMPREHENSIVE METABOLIC 40046 CREATININE 0.65 mg/dL 11/06 Unknown COMPREHENSIVE METABOLIC 25605 CALCIUM 9.4 mg/dL 2015 Unknown COMPREHENSIVE METABOLIC 99251 POTASSIUM 3.7 mmol/L 11/24 Unknown COMPREHENSIVE METABOLIC 42483 Total Protein 6.9 g/dL Unknown COMPREHENSIVE METABOLIC 28014 Glucose 101 mg/dL 2015 Unknown COMPREHENSIVE METABOLIC 19227 Bicarbonate 27 mmol/L 11/06 Unknown COMPREHENSIVE METABOLIC 10388 AGAP 8 mmol/L 2015 Unknown THYROID STIMULATING HORMONE 74594 TSH 2.983 uIU/mL 11/25/2015 Unknown COMPLETE BLOOD COUNT 6045164 WBC 9.0 10e9/L 11/25/19 16 Unknown COMPLETE BLOOD COUNT [id number] RBC 3.98 10e12/L 2015 Unknown COMPLETE BLOOD COUNT 1019817 HEMOGLOBIN 12.8 g/dL 11/25/19 16 Unknown COMPLETE BLOOD COUNT 2730027 HEMATOCRIT 36.1 % 11/25/19 16 Unknown COMPLETE BLOOD COUNT 0292516 MCV 90.7 fL 6 Unknown COMPLETE BLOOD COUNT 8269053 MCH 32.2 pg 6 Unknown COMPLETE BLOOD COUNT 7347951 MCHC 35.5 g/dL 6 Unknown COMPLETE BLOOD COUNT 9176293 PLATELET COUNT 291 10e9/L Unknown COMPLETE BLOOD COUNT 1334130 Mean Plt Volume 8.8 fL Unknown COMPLETE BLOOD COUNT 9256200 Neut Auto 72.2 % 6 Unknown COMPLETE BLOOD COUNT 1776154 Lymph Auto 19.4 % 11/25/19 16 Unknown COMPLETE BLOOD COUNT 6735239 Wirt Auto 7.4 % 6 Unknown COMPLETE BLOOD COUNT 9972495 RDW 11.8 % 6 Unknown COMPLETE BLOOD COUNT 4667356 Eos Auto 0.7 % 6 Unknown COMPLETE BLOOD COUNT 3371264 Baso Auto 0.3 % 6 Unknown COMPLETE BLOOD COUNT 5100393 Neutrophil Abs 6.50 10e9/L Unknown COMPLETE BLOOD COUNT 0451774 Lymphoctye Abs 1.75 10e9/L Unknown COMPLETE BLOOD COUNT [id number] Monocyte Abs 0.67 10e9/L 11/06 Unknown COMPLETE BLOOD COUNT 7604533 Eosinophil Abs 0.06 10e9/L Unknown COMPLETE BLOOD COUNT 6124673 RDW-SD 38.1 fL 6 Unknown COMPLETE BLOOD COUNT 1535393 Basophil Abs 0.03 10e9/L 11/06 Unknown GFR CALC 8495135 GFR Non Afr Amr >60 mL/min 11/25/2015 Un known GFR CALC 8748618 GFR Afr Amr >60 mL/min 11/25/2015 Unknow n Procedures Procedure Codes Date SARSCOV CORONAVIRUS AG IA CPT-4: 52108 01/27/2022 CEFTRIAXONE SODIUM INJECTION CPT-4: J0696 01/27/2022 THER/PROPH/DIAG INJ SC/IM CPT-4: 56236 01/27/2022 URINALYSIS NONAUTO W/O SCOPE CPT-4: 74458 05/12/2021 RML URINE CULTURE/ COLONY COUNT CPT-4: 02755 05/12/20 21 FLU VACC PRSV FREE INC ANTIG 65 AND OLDER CPT-4: 03975 02/27/2021 ADMIN INFLUENZA VIRUS VAC CPT-4: G0008 02/27/2021 FLU VACC PRSV FREE INC ANTIG 65 AND OLDER CPT-4: 21837 02/27/2021 RML URINE CULTURE/ COLONY COUNT CPT-4: 76029 11/12/19 21 URINALYSIS NONAUTO W/O SCOPE CPT-4: 22161 11/11/2020 DESTRUCT PREMALG LESION (Cryosurgery) CPT-4: 62519 RML URINE CULTURE/ COLONY COUNT CPT-4: 75637 02/20/20 20 URINALYSIS NONAUTO W/O SCOPE CPT-4: 94419 02/13/2020 RML URINE CULTURE/ COLONY COUNT CPT-4: 84839 02/13/20 20 CEFTRIAXONE SODIUM INJECTION CPT-4: J0696 02/13/2020 THER/PROPH/DIAG INJ SC/IM CPT-4: 60140 02/13/2020 URINALYSIS NONAUTO W/O SCOPE CPT-4: 97419 11/09/2019 RML URINE CULTURE/ COLONY COUNT CPT-4: 04647 11/09/19 20 CEFTRIAXONE SODIUM INJECTION CPT-4: J0696 05/18/2019 THER/PROPH/DIAG INJ SC/IM CPT-4: 72756 05/18/2019 CEFTRIAXONE SODIUM INJECTION CPT-4: J0696 05/17/2019 THER/PROPH/DIAG INJ SC/IM CPT-4: 24681 05/17/2019 RML URINE CULTURE/ COLONY COUNT CPT-4: 94322 05/08/20 19 THROAT CULTURE CPT-4: 73758 05/08/2019 URINALYSIS NONAUTO W/O SCOPE CPT-4: 83707 04/21/2019 RML URINE CULTURE/ COLONY COUNT CPT-4: 07227 04/21/20 19 CEFTRIAXONE SODIUM INJECTION CPT-4: J0696 04/21/2019 THER/PROPH/DIAG INJ SC/IM CPT-4: 26569 04/21/2019 FLU VACC PRSV FREE INC ANTIG 65 AND OLDER CPT-4: 73628 03/02/2019 FLU VACC PRSV FREE INC ANTIG 65 AND OLDER CPT-4: 39154 03/02/2019 ADMIN INFLUENZA VIRUS VAC CPT-4: G0008 03/02/2019 URINALYSIS NONAUTO W/O SCOPE CPT-4: 12520 02/16/2019 Removal impacted cerumen using irrigation/lavage, unilateral CPT-4: 06828 12/14/2018 UA W/MICR CPT-4: 84407 10/05/2018 ROUTINE VENIPUNCTURE CPT-4: 86169 09/26/2018 RML COMPLETE CBC W/AUTO DIFF WBC CPT-4: 79699 019 CEFTRIAXONE SODIUM INJECTION CPT-4: J0696 09/22/2018 THER/PROPH/DIAG INJ SC/IM CPT-4: 38471 09/22/2018 INFLUENZA ASSAY W/OPTIC CPT-4: 28564 09/22/2018 URINALYSIS NONAUTO W/O SCOPE CPT-4: 93624 09/20/2018 CEFTRIAXONE SODIUM INJECTION CPT-4: J0696 09/20/2018 THER/PROPH/DIAG INJ SC/IM CPT-4: 62279 09/20/2018 RML URINE CULTURE/ COLONY COUNT CPT-4: 58865 09/21/19 19 RML URINE CULTURE/ COLONY COUNT CPT-4: 82959 09/15/19 19 URINALYSIS NONAUTO W/O SCOPE CPT-4: 87964 09/05/2018 RML URINE CULTURE/ COLONY COUNT CPT-4: 32659 09/06/19 19 URINALYSIS NONAUTO W/O SCOPE CPT-4: 70734 04/20/2018 RML URINE CULTURE/ COLONY COUNT CPT-4: 65634 04/20/20 18 CERUM REMOVAL CPT-4: 15242 03/18/2018 FLU VACC PRSV FREE INC ANTIG 65 AND OLDER CPT-4: 12668 03/03/2018 ADMIN INFLUENZA VIRUS VAC CPT-4: G0008 03/03/2018 PRESCRIP TRANSMIT VIA ERX SY CPT-4: G8553 05/25/2017 FLU VACC PRSV FREE INC ANTIG 65 AND OLDER CPT-4: 19876 03/08/2017 ADMIN INFLUENZA VIRUS VAC CPT-4: G0008 03/08/2017 PRESCRIP TRANSMIT VIA ERX SY CPT-4: G8553 01/18/2017 PRESCRIP TRANSMIT VIA ERX SY CPT-4: G8553 11/18/2016 RML URINE CULTURE/ COLONY COUNT CPT-4: 03709 10/27/19 17 URINALYSIS NONAUTO W/O SCOPE CPT-4: 46534 10/26/2016 PRESCRIP TRANSMIT VIA ERX SY CPT-4: G8553 10/08/2016 PRESCRIP TRANSMIT VIA ERX SY CPT-4: G8553 10/05/2016 PRESCRIP TRANSMIT VIA ERX SY CPT-4: G8553 06/23/2016 PRESCRIP TRANSMIT VIA ERX SY CPT-4: G8553 06/03/2016 INFLUENZA ASSAY W/OPTIC CPT-4: 70745 05/26/2016 FLU VACC PRSV FREE INC ANTIG 65 AND OLDER CPT-4: 44209 03/19/2016 ADMIN INFLUENZA VIRUS VAC CPT-4: G0008 03/19/2016 PNEUMOCOCCAL VACC 13 CARLIE IM CPT-4: 92290 01/13/2016 ADMIN PNEUMOCOCCAL VACCINE CPT-4: G0009 01/13/2016 PRESCRIP TRANSMIT VIA ERX SY CPT-4: G8553 01/13/2016 URINALYSIS NONAUTO W/O SCOPE CPT-4: 00464 11/27/2015 RML URINE CULTURE/ COLONY COUNT CPT-4: 05323 11/27/19 16 PRESCRIP TRANSMIT VIA ERX SY CPT-4: G8553 10/17/2015 PRESCRIP TRANSMIT VIA ERX SY CPT-4: G8553 09/03/2015 PRESCRIP TRANSMIT VIA ERX SY CPT-4: G8553 08/01/2015 CUR TOBACCO NON-USER CPT-4: G8457 06/27/2015 PRESCRIP TRANSMIT VIA ERX SY CPT-4: G8553 06/27/2015 Vital Signs Date Vital 08/25/2022 Blood Pressure 1: 124/78 Code: 8480-6 Heart Rate 1: 75 bpm Respiratory Rate: 20 bpm SpO2: 98% Temperature: 36.4 (C) / 97.5 (F) We ight: 134 lbs Code: 40421-6 08/11/2022 Blood Pressure 1: 136/74 Code: 8480-6 Heart Rate 1: 69 bpm Respiratory Rate: 18 bpm SpO2: 97% Temperature: 36.7 (C) / 98.0 (F) We ight: 134 lbs Code: 97588-2 07/28/2022 Blood Pressure 1: 126/74 Code: 8480-6 Heart Rate 1: 74 bpm Respiratory Rate: 20 bpm SpO2: 97% Temperature: 36.4 (C) / 97.5 (F) We ight: 135 lbs Code: 01231-7 07/14/2022 Blood Pressure 1: 130/76 Code: 8480-6 Heart Rate 1: 51 bpm SpO2: 100% Temperature: 36.3 (C) / 97.3 (F) Weight: 130 lbs Code : 69908-1 06/23/2022 Blood Pressure 1: 140/80 Code: 8480-6 Heart Rate 1: 58 bpm Respiratory Rate: 20 bpm SpO2: 98% Temperature: 36.3 (C) / 97.3 (F) We ight: 135 lbs Code: 01907-4 05/25/2022 Blood Pressure 1: 161/82 Code: 8480-6 BMI: 24.3 Code: 56350-7 Heart Rate 1: 72 bpm Height: 5'3" Code: 8302-2 SpO2: 97% Temperature: 3 6.3 (C) / 97.3 (F) Weight: 137 lbs Code: 57212-5 03/19/2022 Blood Pressure 1: 140/82 Code: 8480-6 BMI: 23.2 Code: 16503-3 Heart Rate 1: 56 bpm Height: 5'3" Code: 8302-2 SpO2: 92% Temperature: 3 6.8 (C) / 98.2 (F) Weight: 131 lbs Code: 75887-3 02/16/2022 Blood Pressure 1: 154/82 Code: 8480-6 BMI: 23.6 Code: 64397-5 Heart Rate 1: 64 bpm Height: 5'3" Code: 8302-2 Respiratory Rate: 20 bpm SpO2: 96% Temperature: 36.8 (C) / 98.3 (F) Weight: 133 lbs Code: 31613-6 2022 Blood Pressure 1: 140/74 Code: 8480-6 BMI: 22.5 Code: 73669-6 Heart Rate 1: 54 bpm Height: 5'3" Code: 8302-2 Respiratory Rate: 18 bpm SpO2: 96% Temperature: 36.8 (C) / 98.2 (F) Weight: 127 lbs Code: 19928-6 01/27/2022 Blood Pressure 1: 144/80 Code: 8480-6 Heart Rate 1: 84 bpm Respiratory Rate: 22 bpm SpO2: 96% Temperature: 36.7 (C) / 98.0 (F) We ight: 134 lbs Code: 20358-3 10/28/2021 Blood Pressure 1: 152/82 Code: 8480-6 BMI: 22.8 Code: 49485-9 Heart Rate 1: 68 bpm Height: 5'4" Code: 8302-2 Respiratory Rate: 20 bpm SpO2: 98% Temperature: 36.8 (C) / 98.2 (F) Weight: 133 lbs Code: 17787-3 09/23/2021 Blood Pressure 1: 154/78 Code: 8480-6 Heart Rate 1: 66 bpm Respiratory Rate: 18 bpm SpO2: 97% Temperature: 36.2 (C) / 97.1 (F) We ight: 130 lbs Code: 67770-5 08/21/2021 Blood Pressure 1: 166/78 Code: 8480-6 Heart Rate 1: 76 bpm Respiratory Rate: 20 bpm SpO2: 98% Temperature: 36.5 (C) / 97.7 (F) We ight: 134 lbs Code: 06303-9 07/30/2021 Blood Pressure 1: 146/68 Code: 8480-6 Heart Rate 1: 76 bpm Respiratory Rate: 20 bpm SpO2: 98% Temperature: 36.7 (C) / 98.1 (F) We ight: 135 lbs Code: 87852-4 06/19/2021 Blood Pressure 1: 96/50 Code: 8480-6 Heart Rate 1: 72 bpm Respiratory Rate: 20 bpm SpO2: 97% Temperature: 36.8 (C) / 98.3 (F) Weight: 132 lbs Code: 19674-7 05/08/2021 Blood Pressure 1: 132/74 Code: 8480-6 Heart Rate 1: 72 bpm Respiratory Rate: 20 bpm SpO2: 99% Temperature: 36.8 (C) / 98.2 (F) We ight: 132 lbs Code: 35245-8 04/28/2021 Blood Pressure 1: 132/62 Code: 8480-6 Heart Rate 1: 88 bpm Respiratory Rate: 20 bpm SpO2: 98% Temperature: 36.6 (C) / 97.9 (F) We ight: 141 lbs Code: 95099-2 03/19/2021 Blood Pressure 1: 140/67 Code: 8480-6 Heart Rate 1: 71 bpm Respiratory Rate: 15 bpm SpO2: 99% Temperature: 36.3 (C) / 97.3 (F) We ight: 142 lbs Code: 70923-1 02/06/2021 Blood Pressure 1: 152/74 Code: 8480-6 Heart Rate 1: 80 bpm Respiratory Rate: 20 bpm SpO2: 96% Temperature: 36.7 (C) / 98.0 (F) We ight: 138 lbs Code: 19164-6 12/20/2020 Blood Pressure 1: 112/63 Code: 8480-6 Heart Rate 1: 80 bpm Respiratory Rate: 16 bpm SpO2: 99% Temperature: 36.4 (C) / 97.6 (F) We ight: 136 lbs Code: 03251-4 12/11/2020 Blood Pressure 1: 123/64 Code: 8480-6 BMI: 23.5 Code: 90616-8 Heart Rate 1: 68 bpm Height: 5'4" Code: 8302-2 Respiratory Rate: 15 bpm SpO2: 98% Temperature: 36.2 (C) / 97.2 (F) Weight: 137 lbs Code: 54938-9 11/11/2020 Blood Pressure 1: 154/82 Code: 8480-6 Heart Rate 1: 76 bpm SpO2: 99% Temperature: 36.9 (C) / 98.5 (F) Weight: 136 lbs Code: 65710-5 09/05/2020 Blood Pressure 1: 150/66 Code: 8480-6 Heart Rate 1: 80 bpm Respiratory Rate: 20 bpm SpO2: 99% Temperature: 37.0 (C) / 98.6 (F) We ight: 132 lbs Code: 89303-2 07/29/2020 Blood Pressure 1: 152/72 Code: 8480-6 Heart Rate 1: 84 bpm Respiratory Rate: 20 bpm SpO2: 97% Temperature: 36.8 (C) / 98.2 (F) We ight: 133 lbs Code: 89300-9 06/24/2020 Blood Pressure 1: 112/68 Code: 8480-6 Heart Rate 1: 72 bpm Respiratory Rate: 20 bpm SpO2: 98% Temperature: 36.8 (C) / 98.2 (F) We ight: 130 lbs Code: 54928-8 06/21/2020 Blood Pressure 1: 129/78 Code: 8480-6 He art Rate 1: 81 bpm 02/29/2020 Blood Pressure 1: 136/70 Code: 8480-6 Heart Rate 1: 76 bpm Respiratory Rate: 20 bpm SpO2: 98% Temperature: 36.4 (C) / 97.5 (F) We ight: 130 lbs Code: 38971-1 02/22/2020 Blood Pressure 1: 142/67 Code: 8480-6 Heart Rate 1: 64 bpm Respiratory Rate: 16 bpm SpO2: 98% Temperature: 36.5 (C) / 97.7 (F) We ight: 128 lbs Code: 80595-7 02/13/2020 Blood Pressure 1: 124/80 Code: 8480-6 Heart Rate 1: 61 bpm Respiratory Rate: 15 bpm SpO2: 97% Temperature: 36.2 (C) / 97.1 (F) We ight: Code: 29020-5 2020 Blood Pressure 1: 124/60 Code: 8480-6 Heart Rate 1: 92 bpm Respiratory Rate: 20 bpm SpO2: 97% Temperature: 36.4 (C) / 97.5 (F) We ight: 129 lbs Code: 78515-4 01/22/2020 Blood Pressure 1: 134/54 Code: 8480-6 Heart Rate 1: 72 bpm Respiratory Rate: 20 bpm SpO2: 97% Temperature: 37.1 (C) / 98.7 (F) We ight: 128 lbs Code: 78008-2 12/26/2019 Blood Pressure 1: 124/74 Code: 8480-6 Heart Rate 1: 64 bpm Respiratory Rate: 20 bpm SpO2: 98% Temperature: 37.0 (C) / 98.6 (F) We ight: 126 lbs Code: 61517-1 11/27/2019 Blood Pressure 1: 134/73 Code: 8480-6 Heart Rate 1: 116 bpm Respiratory Rate: 17 bpm SpO2: 97% Temperature: 36.7 (C) / 98.0 (F) We ight: 134 lbs Code: 13115-6 11/09/2019 Blood Pressure 1: 126/68 Code: 8480-6 Heart Rate 1: 92 bpm Respiratory Rate: 20 bpm SpO2: 97% Temperature: 37.2 (C) / 98.9 (F) We ight: 135 lbs Code: 13042-5 10/10/2019 Blood Pressure 1: 117/65 Code: 8480-6 Heart Rate 1: 66 bpm Respiratory Rate: 16 bpm SpO2: 99% Temperature: 36.7 (C) / 98.0 (F) We ight: 130 lbs Code: 17361-8 07/13/2019 Blood Pressure 1: 144/70 Code: 8480-6 BMI: 23.0 Code: 59206-3 Heart Rate 1: 92 bpm Height: 5'4" Code: 8302-2 Respiratory Rate: 20 bpm SpO2: 98% Temperature: 36.8 (C) / 98.2 (F) Weight: 133 lbs Code: 31202-5 05/18/2019 Blood Pressure 1: 122/60 Code: 8480-6 Heart Rate 1: 92 bpm Respiratory Rate: 20 bpm SpO2: 97% Temperature: 37.0 (C) / 98.6 (F) 05/17/2019 Blood Pressure 1: 122/74 Code: 8480-6 Heart Rate 1: 84 bpm Respiratory Rate: 20 bpm SpO2: 98% Temperature: 37.2 (C) / 99.0 (F) We ight: 130 lbs Code: 06453-7 04/24/2019 Blood Pressure 1: 124/64 Code: 8480-6 Heart Rate 1: 93 bpm SpO2: 99% Temperature: 36.8 (C) / 98.3 (F) Weight: 134 lbs Code: 09152-3 04/10/2019 Blood Pressure 1: 128/68 Code: 8480-6 Heart Rate 1: 73 bpm SpO2: 99% Temperature: 37.2 (C) / 98.9 (F) Weight: 134 lbs Code: 68950-6 02/16/2019 Blood Pressure 1: 128/64 Code: 8480-6 Heart Rate 1: 72 bpm Respiratory Rate: 20 bpm SpO2: 97% Temperature: 36.8 (C) / 98.2 (F) We ight: 129 lbs Code: 03047-5 12/20/2018 Blood Pressure 1: 152/70 Code: 8480-6 Heart Rate 1: 87 bpm Respiratory Rate: 20 bpm SpO2: 98% Temperature: 36.9 (C) / 98.5 (F) We ight: 127 lbs Code: 88976-7 12/14/2018 Blood Pressure 1: 122/68 Code: 8480-6 Heart Rate 1: 80 bpm Respiratory Rate: 18 bpm SpO2: 96% Temperature: 36.8 (C) / 98.2 (F) 12/12/2018 Blood Pressure 1: 140/68 Code: 8480-6 Heart Rate 1: 75 bpm Respiratory Rate: 18 bpm SpO2: 97% Temperature: 36.2 (C) / 97.1 (F) We ight: 127 lbs Code: 53142-3 10/19/2018 Blood Pressure 1: 126/64 Code: 8480-6 Heart Rate 1: 88 bpm Respiratory Rate: 20 bpm SpO2: 96% Temperature: 37.1 (C) / 98.8 (F) We ight: 123 lbs Code: 45963-7 10/13/2018 Blood Pressure 1: 132/62 Code: 8480-6 He art Rate 1: 86 bpm 10/05/2018 Blood Pressure 1: 114/58 Code: 8480-6 Heart Rate 1: 72 bpm SpO2: 98% Temperature: 36.9 (C) / 98.5 (F) Weight: 120 lbs Code: 00663-0 09/28/2018 Blood Pressure 1: 126/64 Code: 8480-6 Heart Rate 1: 76 bpm Respiratory Rate: 20 bpm SpO2: 97% Temperature: 37.2 (C) / 98.9 (F) 09/26/2018 Blood Pressure 1: 132/66 Code: 8480-6 Heart Rate 1: 79 bpm Respiratory Rate: 20 bpm SpO2: 97% Temperature: 37.1 (C) / 98.7 (F) We ight: 119 lbs Code: 46201-5 09/23/2018 Blood Pressure 1: 112/64 Code: 8480-6 Heart Rate 1: 85 bpm Respiratory Rate: 20 bpm SpO2: 95% Temperature: 36.9 (C) / 98.5 (F) We ight: 119 lbs 8 oz Code: 81693-3 09/22/2018 Blood Pressure 1: 116/58 Code: 8480-6 Heart Rate 1: 88 bpm Respiratory Rate: 20 bpm SpO2: 96% Temperature: 37.9 (C) / 100. 2 (F) 09/20/2018 Blood Pressure 1: 136/70 Code: 8480-6 Heart Rate 1: 109 bpm Respiratory Rate: 20 bpm SpO2: 98% Temperature: 37.0 (C) / 98.6 (F) We ight: 122 lbs Code: 13879-7 09/15/2018 Blood Pressure 1: 134/62 Code: 8480-6 Heart Rate 1: 68 bpm Respiratory Rate: 20 bpm SpO2: 97% Temperature: 36.8 (C) / 98.2 (F) We ight: 124 lbs Code: 96456-7 09/08/2018 Blood Pressure 1: 132/62 Code: 8480-6 Heart Rate 1: 83 bpm Respiratory Rate: 18 bpm SpO2: 94% Temperature: 36.9 (C) / 98.4 (F) We ight: 123 lbs Code: 44699-9 09/05/2018 Blood Pressure 1: 142/68 Code: 8480-6 Heart Rate 1: 70 bpm Respiratory Rate: 18 bpm SpO2: 98% Temperature: 37.0 (C) / 98.6 (F) We ight: 123 lbs Code: 69324-9 03/18/2018 Blood Pressure 1: 132/62 Code: 8480-6 Heart Rate 1: 71 bpm Respiratory Rate: 18 bpm SpO2: 95% Temperature: 36.7 (C) / 98.1 (F) We ight: 126 lbs Code: 76555-3 03/03/2018 Blood Pressure 1: 148/60 Code: 8480-6 BMI: 22.5 Code: 38378-0 Heart Rate 1: 72 bpm Height: 5'4" Code: 8302-2 Respiratory Rate: 20 bpm SpO2: 96% Temperature: 36.9 (C) / 98.4 (F) Weight: 130 lbs Code: 62515-8 02/16/2018 Blood Pressure 1: 154/70 Code: 8480-6 BMI: 21.8 Code: 10258-4 Heart Rate 1: 72 bpm Height: 5'4" Code: 8302-2 Respiratory Rate: 20 bpm SpO2: 97% Temperature: 36.9 (C) / 98.5 (F) Weight: 126 lbs Code: 29165-8 01/26/2018 Blood Pressure 1: 126/78 Code: 8480-6 BMI: 21.8 Code: 82942-3 Heart Rate 1: 80 bpm Height: 5'4" Code: 8302-2 Respiratory Rate: 20 bpm SpO2: 97% Temperature: 36.6 (C) / 97.8 (F) Weight: 126 lbs Code: 66565-7 11/30/2017 Blood Pressure 1: 168/78 Code: 8480-6 BMI: 22.1 Code: 17821-3 Heart Rate 1: 64 bpm Height: 5'4" Code: 8302-2 Respiratory Rate: 20 bpm SpO2: 96% Temperature: 37.0 (C) / 98.6 (F) Weight: 128 lbs Code: 93603-4 10/20/2017 Blood Pressure 1: 146/70 Code: 8480-6 BMI: 22.1 Code: 55259-9 Heart Rate 1: 72 bpm Height: 5'4" Code: 8302-2 Respiratory Rate: 20 bpm SpO2: 97% Temperature: 36.7 (C) / 98.1 (F) Weight: 128 lbs Code: 48698-6 08/30/2017 Blood Pressure 1: 134/68 Code: 8480-6 BMI: 22.5 Code: 39915-7 Heart Rate 1: 72 bpm Height: 5'4" Code: 8302-2 Respiratory Rate: 20 bpm Temperatu re: 36.9 (C) / 98.4 (F) Weight: 130 lbs Code: 35966-3 05/25/2017 Blood Pressure 1: 144/60 Code: 8480-6 BMI: 22.3 Code: 37415-6 Heart Rate 1: 64 bpm Height: 5'4" Code: 8302-2 Respiratory Rate: 20 bpm SpO2: 95% Temperature: 36.8 (C) / 98.2 (F) Weight: 129 lbs Code: 84191-6 03/22/2017 Blood Pressure 1: 124/70 Code: 8480-6 BMI: 21.4 Code: 94952-3 Heart Rate 1: 64 bpm Height: 5'4" Code: 8302-2 Respiratory Rate: 20 bpm Temperatu re: 36.9 (C) / 98.4 (F) Weight: 124 lbs Code: 78401-8 03/08/2017 Blood Pressure 1: 142/78 Code: 8480-6 He art Rate 1: 64 bpm 01/18/2017 Blood Pressure 1: 136/64 Code: 8480-6 BMI: 21.9 Code: 68810-2 Heart Rate 1: 68 bpm Height: 5'4" Code: 8302-2 Respiratory Rate: 20 bpm SpO2: 96% Temperature: 36.8 (C) / 98.2 (F) Weight: 127 lbs Code: 26160-7 01/11/2017 Blood Pressure 1: 142/60 Code: 8480-6 Heart Rate 1: 60 bpm SpO2: 96% 01/04/2017 Blood Pressure 1: 148/70 Code: 8480-6 He art Rate 1: 68 bpm 12/28/2016 Blood Pressure 1: 132/64 Code: 8480-6 BMI: 21.4 Code: 68605-8 Heart Rate 1: 68 bpm Height: 5'4" Code: 8302-2 SpO2: 98% Weight: 124 lb s Code: 19494-3 12/24/2016 Blood Pressure 1: 138/62 Code: 8480-6 He art Rate 1: 74 bpm 12/16/2016 Blood Pressure 1: 124/64 Code: 8480-6 BMI: 21.4 Code: 02940-4 Heart Rate 1: 66 bpm Height: 5'4" Code: 8302-2 Respiratory Rate: 20 bpm SpO2: 97% Temperature: 36.8 (C) / 98.2 (F) Weight: 124 lbs Code: 56226-3 11/18/2016 Blood Pressure 1: 156/64 Code: 8480-6 BMI: 22.3 Code: 94076-7 Heart Rate 1: 64 bpm Height: 5'4" Code: 8302-2 Respiratory Rate: 20 bpm SpO2: 98% Temperature: 36.6 (C) / 97.8 (F) Weight: 129 lbs Code: 00942-9 11/04/2016 Blood Pressure 1: 112/48 Code: 8480-6 BMI: 21.6 Code: 30467-5 Heart Rate 1: 70 bpm Height: 5'4" Code: 8302-2 Respiratory Rate: 22 bpm SpO2: 98% Temperature: 36.4 (C) / 97.6 (F) Weight: 125 lbs Code: 32066-6 10/27/2016 Blood Pressure 1: 118/54 Code: 8480-6 BMI: 21.8 Code: 94782-8 Heart Rate 1: 64 bpm Height: 5'4" Code: 8302-2 Respiratory Rate: 20 bpm SpO2: 97% Temperature: 36.9 (C) / 98.4 (F) Weight: 126 lbs Code: 72661-1 10/13/2016 Blood Pressure 1: 138/82 Code: 8480-6 Heart Rate 1: 66 bpm Height: Code: 8302-2 Respiratory Rate: 20 bpm SpO2: 97% Temperature: 36 .6 (C) / 97.9 (F) Weight: Code: 61477-7 10/08/2016 Blood Pressure 1: 124/56 Code: 8480-6 BMI: 22.8 Code: 03051-6 Heart Rate 1: 76 bpm Height: 5'4" Code: 8302-2 Respiratory Rate: 20 bpm SpO2: 96% Temperature: 36.8 (C) / 98.3 (F) Weight: 132 lbs Code: 53007-0 10/05/2016 Blood Pressure 1: 126/58 Code: 8480-6 BMI: 22.6 Code: 43443-5 Heart Rate 1: 60 bpm Height: 5'4" Code: 8302-2 Respiratory Rate: 20 bpm Temperatu re: 36.7 (C) / 98.1 (F) Weight: 131 lbs Code: 32895-1 08/25/2016 Blood Pressure 1: 130/64 Code: 8480-6 Heart Rate 1: 60 bpm Respiratory Rate: 20 bpm SpO2: 96% Temperature: 37.0 (C) / 98.6 (F) We ight: 136 lbs Code: 99791-4 07/28/2016 Blood Pressure 1: 104/78 Code: 8480-6 BMI: 23.5 Code: 30152-9 Heart Rate 1: 82 bpm Height: 5'4" Code: 8302-2 Respiratory Rate: 24 bpm SpO2: 98% Temperature: 36.8 (C) / 98.2 (F) Weight: 136 lbs Code: 57465-6 06/25/2016 Blood Pressure 1: 152/66 Code: 8480-6 He art Rate 1: 60 bpm 06/23/2016 Blood Pressure 1: 198/102 Code: 8480-6 Heart Rat e 1: 62 bpm Respiratory Rate: 20 bpm SpO2: 95% Temperature: 36.6 (C) / 97.9 (F) We ight: 137 lbs Code: 88720-2 06/03/2016 Blood Pressure 1: 154/86 Code: 8480-6 BMI: 23.4 Code: 07925-2 Heart Rate 1: 56 bpm Height: 5'6" Code: 8302-2 Respiratory Rate: 20 bpm SpO2: 96% Temperature: 36.7 (C) / 98.1 (F) Weight: 143 lbs Code: 35511-7 05/26/2016 Blood Pressure 1: 124/68 Code: 8480-6 BMI: 23.6 Code: 37986-7 Heart Rate 1: 76 bpm Height: 5'6" Code: 8302-2 Respiratory Rate: 20 bpm SpO2: 96% Temperature: 36.2 (C) / 97.2 (F) Weight: 144 lbs Code: 32908-0 05/20/2016 Blood Pressure 1: 156/58 Code: 8480-6 BMI: 24.5 Code: 51084-1 Heart Rate 1: 64 bpm Height: 5'4" Code: 8302-2 Respiratory Rate: 20 bpm Temperatu re: 36.9 (C) / 98.4 (F) Weight: 142 lbs Code: 83992-9 03/19/2016 Blood Pressure 1: 144/74 Code: 8480-6 BMI: 25.9 Code: 18706-6 Heart Rate 1: 76 bpm Height: 5'4" Code: 8302-2 Respiratory Rate: 20 bpm Temperatu re: 36.8 (C) / 98.2 (F) Weight: 150 lbs Code: 12231-0 01/13/2016 Blood Pressure 1: 152/72 Code: 8480-6 BMI: 26.8 Code: 17937-3 Heart Rate 1: 64 bpm Height: 5'4" Code: 8302-2 Respiratory Rate: 20 bpm Temperatu re: 36.7 (C) / 98.1 (F) Weight: 155 lbs Code: 29591-8 12/12/2015 Blood Pressure 1: 128/68 Code: 8480-6 BMI: 26.3 Code: 61223-9 Heart Rate 1: 64 bpm Height: 5'4" Code: 8302-2 Respiratory Rate: 20 bpm Temperatu re: 36.8 (C) / 98.3 (F) Weight: 152 lbs Code: 83982-0 12/05/2015 Blood Pressure 1: 174/88 Code: 8480-6 BMI: 26.8 Code: 31396-4 Heart Rate 1: 68 bpm Height: 5'4" Code: 8302-2 Respiratory Rate: 20 bpm Temperatu re: 36.8 (C) / 98.2 (F) Weight: 155 lbs Code: 24430-3 11/27/2015 Blood Pressure 1: 188/82 Code: 8480-6 He art Rate 1: 70 bpm 10/21/2015 Blood Pressure 1: 148/80 Code: 8480-6 BMI: 27.5 Code: 89736-4 Heart Rate 1: 64 bpm Height: 5'4" Code: 8302-2 Respiratory Rate: 20 bpm Temperatu re: 36.7 (C) / 98.1 (F) Weight: 159 lbs Code: 26723-9 10/17/2015 Blood Pressure 1: 140/74 Code: 8480-6 BMI: 27.5 Code: 17735-7 Heart Rate 1: 80 bpm Height: 5'4" Code: 8302-2 Respiratory Rate: 20 bpm Temperatu re: 36.8 (C) / 98.2 (F) Weight: 159 lbs Code: 26886-2 10/07/2015 Blood Pressure 1: 174/80 Code: 8480-6 BMI: 27.5 Code: 21545-0 Heart Rate 1: 82 bpm Height: 5'4" Code: 8302-2 Respiratory Rate: 20 bpm SpO2: 97% Temperature: 36.7 (C) / 98.0 (F) Weight: 159 lbs Code: 26323-6 09/03/2015 Blood Pressure 1: 146/68 Code: 8480-6 BMI: 27.3 Code: 79139-2 Heart Rate 1: 82 bpm Height: 5'4" Code: 8302-2 Respiratory Rate: 20 bpm SpO2: 97% Temperature: 36.6 (C) / 97.9 (F) Weight: 158 lbs Code: 66201-9 08/01/2015 Blood Pressure 1: 144/78 Code: 8480-6 BMI: 26.9 Code: 00121-0 Heart Rate 1: 64 bpm Height: 5'3" Code: 8302-2 Respiratory Rate: 20 bpm Temperatu re: 36.6 (C) / 97.9 (F) Weight: 154 lbs Code: 91151-2 06/27/2015 Blood Pressure 1: 152/76 Code: 8480-6 BMI: 26.7 Code: 91499-3 Heart Rate 1: 80 bpm Height: 5'3" Code: 8302-2 Respiratory Rate: 20 bpm Temperatu re: 36.7 (C) / 98.1 (F) Weight: 153 lbs Code: 74090-8 Functional Status No Functional Status data Reason For Visit Reason For Visit Effective Dates Notes high blood pressure 08/25/2022 states she didnt [...] high blood pressure 12/12/2015 follow up 12/05/2015 [facility] fw high blood pressure 12/05/2015 arrhythmia [...] Codes Date () OFFICE/OUTPATIENT VISIT EST Diagnosis: Cervicalgia[ICD10: M54.2] Diagnosis: Labile hypertension[ICD10: R09.89] Diagnosis: Paroxysmal atrial fibrillation[ICD10: I48.0] Diagnosis: Hypothyroidism, unspecified[ICD10: E03.9] Cony POOLE DO [address] [address] CPT- 4: 85678 08/25/2022 ([id number]) OFFICE/OUTPATIENT VISIT EST Diagnosis: Dyspnea on exertion[ICD10: R06.09] Diagnosis: Chronic atrial fibrillation[ICD10: I48.20] Diagnosis: Essential hypertension[ICD10: I10] Diagnosis: COPD (chronic obstructive pulmonary disease)[ICD10: J44.9] Cony POOLE [address] [address] CPT-4: 15125 08/11/2022 ([id number]) OFFICE/OUTPATIENT VISIT EST Diagnosis: Essential (primary) hypertension[ICD10: I10] Diagnosis: Edema[ICD10: R60.9] Diagnosis: Bradycardia[ICD10: R00.1] Diagnosis: Atrial fibrillation[ICD10: I48.91] Cony POOLE [address] [address] CPT-4: 58333 07/28/2022 ([id number]) OFFICE/OUTPATIENT VISIT EST Diagnosis: URI (upper respiratory infection)[ICD10: J06.9] Diagnosis: Chronic airway obstruction, not elsewhere classified[ICD10: J44.9] Cony POOLE [address] [address] CPT-4: 85748 07/14/2022 ([id number]) OFFICE/OUTPATIENT VISIT EST Diagnosis: Atrial fibrillation[ICD10: I48.91] Diagnosis: Essential (primary) hypertension[ICD10: I10] Diagnosis: Hypothyroidism[ICD10: E03.9] Cony POOLE [address] [address] CPT-4: 94776 06/23/2022 ([id number]) OFFICE/OUTPATIENT VISIT EST Diagnosis: Essential (primary) hypertension[ICD10: I10] Diagnosis: Chronic atrial fibrillation[ICD10: I48.20] Diagnosis: Chronic airway obstruction, not elsewhere classified[ICD10: J44.9] Diagnosis: Hypothyroidism[ICD10: E03.9] Cony POOLE DO [email or web address] [address] [place] [phone] CPT-4: 76232 05/25/2022 ([id number]) OFFICE/OUTPATIENT VISIT EST Diagnosis: COPD (chronic obstructive pulmonary disease)[ICD10: J44.9] Diagnosis: Essential hypertension[ICD10: I10] Diagnosis: Hypothyroidism[ICD10: E03.9] Diagnosis: Allergic rhinitis[ICD10: J30.9] Diagnosis: Unsteady gait[ICD10: R26.81] Cony POOLE DO [email or web address] [address] [place] [phone] CPT-4: 64348 03/19/2022 ([id number]) OFFICE/OUTPATIENT VISIT EST Diagnosis: COPD exacerbation[ICD10: J44.1] Diagnosis: COPD (chronic obstructive pulmonary disease)[ICD10: J44.9] Cony POOLE DO [email or web address] [address] [place] [phone] CPT-4: 32263 02/16/2022 ([id number]) OFFICE/OUTPATIENT VISIT EST Diagnosis: COPD exacerbation[ICD10: J44.1] Cony POOLE DO [email or web address] [address] [place] [phone] CPT-4: 67967 2022 ([id number]) OFFICE/OUTPATIENT VISIT EST Diagnosis: Contact with and (suspected) exposure to other viral communicable diseases[ICD10: Z20.828] Diagnosis: COPD with acute lower respiratory infection[ICD10: J44.0] Keeley Alex CONY POOLE DO [email or web address] [address] [place] [phone] CPT-4: 64948 01/27/2022 ([id number]) OFFICE/OUTPATIENT VISIT EST Diagnosis: Essential (primary) hypertension[ICD10: I10] Diagnosis: Hypothyroidism, unspecified[ICD10: E03.9] Diagnosis: Chronic obstructive pulmonary disease, unspecified[ICD10: J44.9] Cony Bowmanlea STEVENSLINE AbigailMelina NGOC DO [address] [address] CPT-4: 62262 10/28/2021 ([id number]) OFFICE/OUTPATIENT VISIT EST Diagnosis: Essential (primary) hypertension[ICD10: I10] Diagnosis: Atrial fibrillation[ICD10: I48.91] Diagnosis: Edema[ICD10: R60.9] Diagnosis: Mixed hyperlipidemia[ICD10: E78.2] Diagnosis: Hypothyroidism[ICD10: E03.9] Diagnosis: Dyspnea[ICD10: R06.00] Diagnosis: Allergic rhinitis, unspecified[ICD10: J30.9] Cony Colbylea AVERY AbigailMelina NGOC DO [address] [address] CPT- 4: 76842 09/23/2021 ([id number]) OFFICE/OUTPATIENT VISIT EST Diagnosis: Essential (primary) hypertension[ICD10: I10] Diagnosis: Edema[ICD10: R60.9] Diagnosis: Stasis dermatitis[ICD10: I87.2] Diagnosis: Dyspnea[ICD10: R06.00] Conydella AVERY AbigailMelina LISA Albarran DO [address] [address] CPT-4: 00957 08/21/2021 ([id number]) OFFICE/OUTPATIENT VISIT EST Diagnosis: Essential (primary) hypertension[ICD10: I10] Diagnosis: Atrial fibrillation[ICD10: I48.91] Diagnosis: Edema[ICD10: R60.9] Cony Colbylea AVERY AbigailMelina NGOC [address] [address] CPT-4: 05918 07/30/19 ([id number]) OFFICE/OUTPATIENT VISIT EST Diagnosis: Essential hypertension[ICD10: I10] Diagnosis: 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] Diagnosis: Reactive airway disease[ICD10: J45.909] Diagnosis: Sciatica[ICD10: M54.30] Cony AVERY AbigailMelina MIGUEL A GLORIA DO [address] [address] CPT-4: 16492 06/19/2021 ([id number]) NURSE/OUTPATIENT VISIT EST Diagnosis: Urinary tract infection[ICD10: N39.0] Cony POOLE DO [address] [address] CPT-4: 75844 05/12/2021 ([id number]) OFFICE/OUTPATIENT VISIT EST Diagnosis: Edema leg[ICD10: R60.0] Diagnosis: Recurrent UTI[ICD10: N39.0] 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] Cony POOLE DO [address] [address] CPT-4: 73811 05/08/2021 ([id number]) OFFICE/OUTPATIENT VISIT EST Diagnosis: Cervical radiculopathy[ICD10: M54.12] Diagnosis: 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] Cony POOLE DO [address] [address] CPT- 4: 03574 04/28/2021 ([id number]) OFFICE/OUTPATIENT VISIT EST Diagnosis: Other fatigue[ICD10: R53.83] Diagnosis: Hypothyroidism[ICD10: E03.9] Diagnosis: Vitamin B12 deficiency anemia, unspecified[ICD10: D51.9] Keeley Alex CONY POOLE DO [address] [address] CPT-4: 90205 03/19/2021 ([id number]) NURSE/OUTPATIENT VISIT EST Diagnosis: Encounter for immunization[ICD10: Z23] Cony POOLE DO [address] [address] CPT-4: 78284 02/27/2021 ([id number]) OFFICE/OUTPATIENT VISIT EST Diagnosis: Atrial fibrillation[ICD10: I48.91] Diagnosis: Essential (primary) hypertension[ICD10: I10] Diagnosis: Hypothyroidism[ICD10: E03.9] Diagnosis: Lymphadenopathy of right cervical region[ICD10: R59.0] Diagnosis: Osteopenia[ICD10: M85.80] Cony Miguel Agloria HOWELLCONY Jeanine WAY DO [address] [address] CPT-4: 37780 02/06/2021 ([id number]) OFFICE/OUTPATIENT VISIT EST Diagnosis: Skin lesion of right leg[ICD10: L98.9] Keeley BOWMANNDER DO [address] [address] CPT-4: 90454 12/20/2020 ([id number]) OFFICE/OUTPATIENT VISIT EST Diagnosis: Nontraumatic blister of skin[ICD10: R23.8] Keeley HayesMelina NGOC PORTER [address] [address] CPT- 4: 89122 12/11/2020 ([id number]) OFFICE/OUTPATIENT VISIT EST Diagnosis: Nocturia[ICD10: R35.1] Diagnosis: Essential hypertension[ICD10: I10] Cony BELTRAN S. COLBYNDER DO [address] [address] CPT-4: 19412 11/11/2020 ([id number]) OFFICE/OUTPATIENT VISIT EST Diagnosis: Essential hypertension[ICD10: I10] Diagnosis: Paroxysmal atrial fibrillation[ICD10: I48.0] Diagnosis: Hypothyroidism[ICD10: E03.9] Cony AVERY AbigailMelina NGOC [address] [address] CPT-4: 98457 07/29/2020 ([id number]) OFFICE/OUTPATIENT VISIT EST Diagnosis: Dizziness and giddiness[ICD10: R42] Diagnosis: Essential hypertension[ICD10: I10] Cony BELTRAN S. COLBYNDER DO [address] [address] CPT-4: 31564 06/24/2020 ([id number]) OFFICE/OUTPATIENT VISIT EST Diagnosis: Weakness[ICD10: R53.1] Apoorvademetrio POOLE DO [facility] [address] [place] [address] CPT-4: 01431 06/21/19 ([id number]) OFFICE/OUTPATIENT VISIT EST Diagnosis: URI (upper respiratory infection)[ICD10: J06.9] [facility] [address] [place] [address] CPT-4: 55078 03/19/2020 ([id number]) OFFICE/OUTPATIENT VISIT EST Diagnosis: Essential (primary) hypertension[ICD10: I10] Diagnosis: Atrial fibrillation status post cardioversion[ICD10: I48.91] Diagnosis: Right upper lobe pulmonary nodule[ICD10: R91.1] Cony POOLE DO [facility] [address] [place] [address] CPT- 4: 96040 02/29/2020 ([id number]) OFFICE/OUTPATIENT VISIT EST Diagnosis: Stasis dermatitis[ICD10: I87.2] Apoorva POOLE DO [facility] [address] [place] [phone] CPT-4: 39794 02/22/2020 ([id number]) NURSE/OUTPATIENT VISIT EST Diagnosis: Urinary tract infection, site not specified[ICD10: N39.0] Cony BOWMANNDER DO [facility] [address] [place] [phone] CPT-4: 09206 02/20/2020 ([id number]) OFFICE/OUTPATIENT VISIT EST Diagnosis: Urinary tract infection[ICD10: N39.0] Apoorva GRADYER DO [facility] [address] [place] [phone] CPT-4: 19210 02/13/2020 ([id number]) OFFICE/OUTPATIENT VISIT EST Diagnosis: Neck pain[ICD10: M54.2] Diagnosis: Muscle spasm[ICD10: M62.838] Cony BOWMANNDER DO [facility] [address] [place] [phone] CPT-4: 01774 2020 ([id number]) OFFICE/OUTPATIENT VISIT EST Diagnosis: Atrial fibrillation[ICD10: I48.91] Diagnosis: Essential hypertension[ICD10: I10] Diagnosis: Right wrist pain[ICD10: M25.531] Conyjeannette AVERY AbigailMelina ORENDER DO [email or web address] [address] [place] [phone] CPT-4: 18513 01/22/2020 ([id number]) OFFICE/OUTPATIENT VISIT EST Diagnosis: Paroxysmal atrial fibrillation[ICD10: I48.0] Diagnosis: Essential hypertension[ICD10: I10] Conyjeannette OCONNELL DEVIN S. ORENDER DO [email or web address] [address] [place] [phone] CPT-4: 59959 12/26/2019 ([id number]) OFFICE/OUTPATIENT VISIT EST Diagnosis: Lung nodule[ICD10: R91.1] Diagnosis: CHF (congestive heart failure)[ICD10: I50.9] Diagnosis: Atrial fibrillation[ICD10: I48.91] Apoorva Rueda DANTESHA BELTRAN S. ORENDER DO [email or web address] [address] [place] [phone] CPT-4: 75625 11/27/2019 ([id number]) OFFICE/OUTPATIENT VISIT EST Diagnosis: Urinary tract infection[ICD10: N39.0] Diagnosis: Hypotension[ICD10: I95.9] Cony AVERY AbigailMelina ORE NDER DO [email or web address] [address] [place] [phone] CPT-4: 60029 11/09/2019 ([id number]) OFFICE/OUTPATIENT VISIT EST Diagnosis: Left leg swelling[ICD10: M79.89] Cony AVERY SMelina ORENDER DO [email or web address] [address] [place] [phone] CPT-4: 66750 10/10/2019 ([id number]) OFFICE/OUTPATIENT VISIT EST Diagnosis: Muscle spasm[ICD10: M62.838] Cony AVERY AbigailMelina ORENDER DO [email or web address] [address] [place] [phone] CPT-4: 97911 08/25/2019 ([id number]) OFFICE/OUTPATIENT VISIT EST Diagnosis: Low back pain[ICD10: M54.5] Diagnosis: Sciatica of left side[ICD10: M54.32] Cony POOLE DO [address] [phone] CPT-4: 33320 07/13/2019 ([id number]) OFFICE/OUTPATIENT VISIT EST Diagnosis: Pneumonia due to infectious organism[ICD10: J18.9] Cony POOLE DO [address] [address] CPT- 4: 06073 05/18/2019 ([id number]) OFFICE/OUTPATIENT VISIT EST Diagnosis: Pneumonia due to infectious organism[ICD10: J18.9] Cony POOLE DO [address] [address] CPT- 4: 70555 05/17/2019 ([id number]) NURSE/OUTPATIENT VISIT EST Diagnosis: Urinary tract infection[ICD10: N39.0] Cony POOLE DO [address] [address] CPT-4: 17682 05/08/2019 ([id number]) NURSE/OUTPATIENT VISIT EST Diagnosis: Acute pharyngitis[ICD10: J02.9] Diagnosis: Altered taste[ICD10: R43.2] Cony CONDON DO [address] [address] CPT-4: 48283 05/08/2019 ([id number]) OFFICE/OUTPATIENT VISIT EST Diagnosis: Urinary tract infection, site not specified[ICD10: N39.0] Diagnosis: Stomatitis and mucositis with change of taste[ICD10: K12.1] Cony POOLE DO [address] [address] CPT-4: 67182 04/24/2019 ([id number]) NURSE/OUTPATIENT VISIT EST Diagnosis: Hematuria[ICD10: R31.9] Cony CASTRO DO [address] [address] CPT-4: 77667 04/21/2019 ([id number]) OFFICE/OUTPATIENT VISIT EST Diagnosis: Oral mucositis (ulcerative), unspecified[ICD10: K12.30] Diagnosis: Stomatitis and mucositis with change of taste[ICD10: K12.1] Cony POOLE DO [address] [address] CPT-4: 64922 04/10/2019 ([id number]) NURSE/OUTPATIENT VISIT EST Diagnosis: FLU VACCINE[ICD10: Z23] Cony CASTRO DO [address] [address] CPT-4: 39947 03/02/2019 ([id number]) OFFICE/OUTPATIENT VISIT EST Diagnosis: Essential (primary) hypertension[ICD10: I10] Diagnosis: Other fatigue[ICD10: R53.83] Diagnosis: Hypothyroidism, unspecified[ICD10: E03.9] Diagnosis: Nocturia[ICD10: R35.1] Cony Albarran DO [address] [address] CPT-4: 12862 02/16/2019 ([id number]) NURSE/OUTPATIENT VISIT EST Diagnosis: Essential (primary) hypertension[ICD10: I10] Cony POOLE [address] [address] CPT- 4: 70924 01/24/2019 ([id number]) OFFICE/OUTPATIENT VISIT EST Diagnosis: Acute upper respiratory infection, unspecified[ICD10: J06.9] Apoorva POOLE [address] [address] CPT-4: 56750 12/20/2018 ([id number]) OFFICE/OUTPATIENT VISIT EST Diagnosis: Paroxysmal atrial fibrillation[ICD10: I48.0] Diagnosis: Other fatigue[ICD10: R53.83] Diagnosis: Essential (primary) hypertension[ICD10: I10] Diagnosis: Hypothyroidism, unspecified[ICD10: E03.9] Cony POOLE [address] [address] CPT- 4: 30908 12/12/2018 ([id number]) OFFICE/OUTPATIENT VISIT EST Diagnosis: Essential (primary) hypertension[ICD10: I10] Diagnosis: Allergic rhinitis due to pollen[ICD10: J30.1] Cony POOLE DO [address] [address] CPT- 4: 52863 10/19/2018 ([id number]) OFFICE/OUTPATIENT VISIT EST Diagnosis: Allergic rhinitis due to pollen[ICD10: J30.1] Diagnosis: Essential (primary) hypertension[ICD10: I10] Cony POOLE [address] [address] CPT- 4: 23216 10/05/2018 ([id number]) OFFICE/OUTPATIENT VISIT EST Diagnosis: Allergic rhinitis due to pollen[ICD10: J30.1] Diagnosis: Other fatigue[ICD10: R53.83] Diagnosis: Hematuria, unspecified[ICD10: R31.9] Cony POOLE [address] [address] CPT-4: 75571 09/28/2018 ([id number]) OFFICE/OUTPATIENT VISIT EST Diagnosis: Allergic rhinitis due to pollen[ICD10: J30.1] Diagnosis: Cough[ICD10: R05] Diagnosis: Dermatitis, unspecified[ICD10: L30.9] Diagnosis: Slow transit constipation[ICD10: K59.01] Cony POOLE [address] [address] CPT- 4: 05819 09/26/2018 ([id number]) OFFICE/OUTPATIENT VISIT EST Diagnosis: Acute bronchitis, unspecified[ICD10: J20.9] Diagnosis: Other specified respiratory disorders[ICD10: J98.8] Merry Diaz CONY POOLE DO [address] [address] CPT- 4: 18150 09/23/2018 ([id number]) OFFICE/OUTPATIENT VISIT EST Diagnosis: Acute bronchitis, unspecified[ICD10: J20.9] Diagnosis: Fever, unspecified[ICD10: R50.9] Cony POOLE DO [address] [address] CPT-4: 25371 09/22/2018 ([id number]) OFFICE/OUTPATIENT VISIT EST Diagnosis: Tachycardia, unspecified[ICD10: R00.0] Diagnosis: Dysuria[ICD10: R30.0] Diagnosis: Personal history of urinary (tract) infections[ICD10: Z87.440] Merry Emily POOLE DO [address] [address] CPT-4: 04402 09/20/2018 ([id number]) OFFICE/OUTPATIENT VISIT EST Diagnosis: Other fatigue[ICD10: R53.83] Diagnosis: Hypothyroidism, unspecified[ICD10: E03.9] Cony POOLE [address] [address] CPT- 4: 69461 09/15/2018 ([id number]) NURSE/OUTPATIENT VISIT EST Diagnosis: Urinary tract infection, site not specified[ICD10: N39.0] Cony POOLE DO [address] [address] CPT-4: 57225 09/14/2018 ([id number]) OFFICE/OUTPATIENT VISIT EST Diagnosis: Chronic fatigue, unspecified[ICD10: R53.82] Diagnosis: Essential (primary) hypertension[ICD10: I10] Diagnosis: Hypothyroidism, unspecified[ICD10: E03.9] Diagnosis: Paroxysmal atrial fibrillation[ICD10: I48.0] Cony POOLE DO [address] [address] CPT- 4: 54210 09/08/2018 ([id number]) OFFICE/OUTPATIENT VISIT EST Diagnosis: Dysuria[ICD10: R30.0] Diagnosis: Personal history of urinary (tract) infections[ICD10: Z87.440] Merry POOLE DO [address] [address] CPT-4: 16120 09/05/2018 ([id number]) NURSE/OUTPATIENT VISIT EST Diagnosis: Essential (primary) hypertension[ICD10: I10] Diagnosis: Edema, unspecified[ICD10: R60.9] Cony POOLE DO [address] [address] CPT-4: 14057 04/20/2018 ([id number]) OFFICE/OUTPATIENT VISIT EST Diagnosis: FLU VACCINE[ICD10: Z23] Diagnosis: Hypothyroidism, unspecified[ICD10: E03.9] Diagnosis: Essential (primary) hypertension[ICD10: I10] Diagnosis: Localized edema[ICD10: R60.0] Cony POOLE DO [address] [address] CPT-4: 53563 03/03/2018 ([id number]) OFFICE/OUTPATIENT VISIT EST Diagnosis: Atopic dermatitis, unspecified[ICD10: L20.9] Apoorva POOLE DO [address] [address] CPT- 4: 44308 02/16/2018 ([id number]) OFFICE/OUTPATIENT VISIT EST Diagnosis: Pressure ulcer of right heel, stage 1[ICD10: L89.611] Diagnosis: Other fatigue[ICD10: R53.83] Apoorva POOLE DO [address] [address] CPT-4: 97232 01/26/2018 OFFICE/OUTPATIENT VISIT EST Diagnosis: Hypothyroidism, unspecified[ICD10: E03.9] Diagnosis: Essential (primary) hypertension[ICD10: I10] Diagnosis: Localized edema[ICD10: R60.0] Diagnosis: Other fatigue[ICD10: R53.83] Cony POOLE [address] [address] CPT-4: 86935 11/30/2017 ([id number]) OFFICE/OUTPATIENT VISIT EST Diagnosis: Other seborrheic keratosis[ICD10: L82.1] Cony POOLE DO [address] [address] CPT- 4: 75901 11/04/2017 ([id number]) OFFICE/OUTPATIENT VISIT EST Diagnosis: Achilles tendinitis, right leg[ICD10: M76.61] Apoorva POOLE DO [address] [address] CPT- 4: 91565 10/20/2017 ([id number]) OFFICE/OUTPATIENT VISIT EST Diagnosis: Essential (primary) hypertension[ICD10: I10] Diagnosis: Hypothyroidism, unspecified[ICD10: E03.9] Diagnosis: Weakness[ICD10: R53.1] Cony Albarran [address] [address] CPT-4: 53916 08/30/2017 ([id number]) OFFICE/OUTPATIENT VISIT EST Diagnosis: Hypothyroidism, unspecified[ICD10: E03.9] Diagnosis: Essential (primary) hypertension[ICD10: I10] Diagnosis: Paroxysmal atrial fibrillation[ICD10: I48.0] Cony POOLE DO [address] [address] CPT- 4: 77668 05/25/2017 ([id number]) OFFICE/OUTPATIENT VISIT EST Diagnosis: Essential (primary) hypertension[ICD10: I10] Diagnosis: Hypothyroidism, unspecified[ICD10: E03.9] Cony POOLE DO [address] [address] CPT- 4: 27614 03/22/2017 ([id number]) OFFICE/OUTPATIENT VISIT EST Diagnosis: FLU VACCINE[ICD10: Z23] Cony CASTRO [address] [address] CPT-4: 03836 03/08/2017 ([id number]) OFFICE/OUTPATIENT VISIT EST Diagnosis: Essential (primary) hypertension[ICD10: I10] Diagnosis: Hypothyroidism, unspecified[ICD10: E03.9] Cony POOLE DO [address] [address] CPT- 4: 46939 01/18/2017 ([id number]) OFFICE/OUTPATIENT VISIT EST Diagnosis: Essential (primary) hypertension[ICD10: I10] Diagnosis: Localized edema[ICD10: R60.0] Diagnosis: Hypotension, unspecified[ICD10: I95.9] Cony POOLE DO [address] [address] CPT-4: 74938 12/16/2016 ([id number]) OFFICE/OUTPATIENT VISIT EST Diagnosis: Hypothyroidism, unspecified[ICD10: E03.9] Diagnosis: Essential (primary) hypertension[ICD10: I10] Cony POOLE DO [address] [address] CPT- 4: 25454 11/18/2016 ([id number]) OFFICE/OUTPATIENT VISIT EST Diagnosis: Hypotension due to drugs[ICD10: I95.2] Diagnosis: Lymphangitis[ICD10: I89.1] Diagnosis: Hypothyroidism, unspecified[ICD10: E03.9] Cony POOLE DO [address] [address] CPT- 4: 38127 11/04/2016 ([id number]) OFFICE/OUTPATIENT VISIT EST Diagnosis: Hypotension due to drugs[ICD10: I95.2] Diagnosis: Other fatigue[ICD10: R53.83] Cony POOLE DO [address] [address] CPT-4: 11187 10/27/2016 ([id number]) OFFICE/OUTPATIENT VISIT EST Diagnosis: Other symptoms and signs involving the genitourinary system[ICD10: R39.89] Cony POOLE DO [address] [address] CPT-4: 56488 10/26/2016 OFFICE/OUTPATIENT VISIT EST Diagnosis: Venous insufficiency (chronic) (peripheral)[ICD10: I87.2] Diagnosis: Lymphangitis[ICD10: I89.1] Diagnosis: Cellulitis of left lower limb[ICD10: L03.116] Cony POOLE DO [address] [address] CPT- 4: 97285 10/13/2016 OFFICE/OUTPATIENT VISIT EST Diagnosis: Cellulitis of left lower limb[ICD10: L03.116] Diagnosis: Lymphangitis[ICD10: I89.1] Cony HOWELLQUELINE Jeanine MOCTEZUMA [address] [address] CPT-4: 42960 10/08/2016 ([id number]) OFFICE/OUTPATIENT VISIT EST Diagnosis: Hypothyroidism, unspecified[ICD10: E03.9] Diagnosis: Essential (primary) hypertension[ICD10: I10] Diagnosis: Other fatigue[ICD10: R53.83] Diagnosis: Cellulitis of left lower limb[ICD10: L03.116] Cony STEVENSLINE Jeanine POOLE [address] [address] CPT- 4: 54193 10/05/2016 ([id number]) OFFICE/OUTPATIENT VISIT EST Diagnosis: Essential (primary) hypertension[ICD10: I10] Diagnosis: Localized edema[ICD10: R60.0] Diagnosis: Other fatigue[ICD10: R53.83] Cony STEVENSLINE Jeanine POOLE DO [address] [address] CPT-4: 73202 08/25/2016 ([id number]) OFFICE/OUTPATIENT VISIT EST Diagnosis: Essential (primary) hypertension[ICD10: I10] Diagnosis: Hypothyroidism, unspecified[ICD10: E03.9] Diagnosis: Weakness[ICD10: R53.1] Cony Albarran [address] [address] CPT-4: 85604 07/28/2016 ([id number]) OFFICE/OUTPATIENT VISIT EST Diagnosis: Essential (primary) hypertension[ICD10: I10] Merle POOLE DO [address] [address] CPT- 4: 09823 06/23/2016 ([id number]) OFFICE/OUTPATIENT VISIT EST Diagnosis: Cough[ICD10: R05] Diagnosis: Essential (primary) hypertension[ICD10: I10] Merle POOLE DO [address] [address] CPT- 4: 93321 06/03/2016 ([id number]) OFFICE/OUTPATIENT VISIT EST Diagnosis: Acute upper respiratory infection, unspecified[ICD10: J06.9] Diagnosis: Fever, unspecified[ICD10: R50.9] Merle POOLE [address] [address] CPT-4: 03309 05/26/2016 ([id number]) OFFICE/OUTPATIENT VISIT EST Diagnosis: Essential (primary) hypertension[ICD10: I10] Diagnosis: Paroxysmal atrial fibrillation[ICD10: I48.0] Diagnosis: Venous insufficiency (chronic) (peripheral)[ICD10: I87.2] Diagnosis: Primary insomnia[ICD10: F51.01] Diagnosis: Hypothyroidism, unspecified[ICD10: E03.9] Cony STEVENSLINE Jeanine POOLE [address] [address] CPT- 4: 03651 05/20/2016 ([id number]) OFFICE/OUTPATIENT VISIT EST Diagnosis: Pain in right ankle and joints of right foot[ICD10: M25.571] Diagnosis: Venous insufficiency (chronic) (peripheral)[ICD10: I87.2] Diagnosis: FLU VACCINE[ICD10: Z23] Cony STEVENSLINE Jeanine CASTRO [address] [address] CPT-4: 44580 03/19/2016 ([id number]) OFFICE/OUTPATIENT VISIT EST Diagnosis: Essential (primary) hypertension[ICD10: I10] Diagnosis: Localized edema[ICD10: R60.0] Diagnosis: Paroxysmal atrial fibrillation[ICD10: I48.0] Diagnosis: PNEUMOCOCCAL VACCINE[ICD10: Z23] Cony POOLE [address] [address] CPT-4: 70525 01/13/2016 ([id number]) OFFICE/OUTPATIENT VISIT EST Diagnosis: Hypo-osmolality and hyponatremia[ICD10: E87.1] Diagnosis: Essential (primary) hypertension[ICD10: I10] Diagnosis: Paroxysmal atrial fibrillation[ICD10: I48.0] Cony POOLE [address] [address] CPT- 4: 60407 12/12/2015 ([id number]) OFFICE/OUTPATIENT VISIT EST Diagnosis: Essential (primary) hypertension[ICD10: I10] Diagnosis: Edema, unspecified[ICD10: R60.9] Diagnosis: Hypo-osmolality and hyponatremia[ICD10: E87.1] Cony POOLE [address] [address] CPT- 4: 38225 12/05/2015 ([id number]) OFFICE/OUTPATIENT VISIT EST Diagnosis: Hypo-osmolality and hyponatremia[ICD10: E87.1] Diagnosis: Hematuria, unspecified[ICD10: R31.9] Cony POOLE [address] [address] CPT-4: 57292 11/27/2015 ([id number]) OFFICE/OUTPATIENT VISIT EST Diagnosis: Essential (primary) hypertension[ICD10: I10] Diagnosis: Edema, unspecified[ICD10: R60.9] Diagnosis: Dizziness and giddiness[ICD10: R42] Merle MORRELL Jeanine POOLE [address] [address] CPT-4: 34187 10/21/2015 ([id number]) OFFICE/OUTPATIENT VISIT EST Diagnosis: Essential (primary) hypertension[ICD10: I10] Diagnosis: Localized edema[ICD10: R60.0] Diagnosis: Paroxysmal atrial fibrillation[ICD10: I48.0] Cony POOLE [address] [address] CPT- 4: 11200 10/17/2015 ([id number]) OFFICE/OUTPATIENT VISIT EST Diagnosis: Essential (primary) hypertension[ICD10: I10] Diagnosis: Tachycardia, unspecified[ICD10: R00.0] Diagnosis: Hypothyroidism, unspecified[ICD10: E03.9] Diagnosis: Palpitations[ICD10: R00.2] Merle MOCTEZUMA [address] [address] CPT-4: 80578 10/07/2015 ([id number]) OFFICE/OUTPATIENT VISIT EST Diagnosis: Acute upper respiratory infection, unspecified[ICD10: J06.9] Merle POOLE [address] [address] CPT-4: 43012 09/03/2015 ([id number]) OFFICE/OUTPATIENT VISIT EST Diagnosis: Essential (primary) hypertension[ICD10: I10] Cony POOLE [address] [address] CPT- 4: 36523 08/01/2015 OFFICE/OUTPATIENT VISIT NEW Diagnosis: Essential (primary) hypertension[ICD10: I10] Diagnosis: Hypothyroidism, unspecified[ICD10: E03.9] Diagnosis: Family history of malignant neoplasm of breast[ICD10: Z80.3] Cony POOLE [address] [address] CPT-4: 73363 06/27/2015 Plan of Care Planned Activity Notes Codes Status Date Visit Diagnosis Plan: Hypothyroidism, unspecified Disc ussion: [...] R09.89 08/25/2022 Appointment: Cony Poole WPtel: [phone] [phone] US FOLLOW UP 08/25/2022 Care Plan: X-RAY EXAM NECK SPINE 4/5VWS LOINC : 95538-9 Pending 08/25/2022 Visit Diagnosis Plan: Chronic atrial [...] : J44.9 08/11/2022 [facility]ment[phone] [facility] FOLLOW UP 08/11/2022 Appointment: Cony Poole WPtel: [phone] [phone] US RESCHEDULED 08/11/2022 Visit Diagnosis Plan: Edema [...] : R00.1 07/28/2022 Appointment: Cony Poole WPtel: [phone] FOLLOW UP 07/28/2022 Patient Education: hydralazine- [employer] Coupon [id number] Completed 07/28/2022 Patient Education: losartan- [employer] Coupon [id number] Completed 07/28/2022 Visit Diagnosis Plan: URI (upper respiratory infection ) Discussion: Influenza A and B and Covid negative Z-pack Continue budesonide and perforomist and add albuterol at least TID Notify if worsening ICD-9 : 465.9 ICD-10 : J06.9 07/14/2022 Appointment: Cony Poole WPtel: [facility]8 [phone] ACUTE ILLNESS 07/14/2022 Visit Diagnosis Plan: Hypothyroidism [...] I10 06/23/2022 Appointment: Cony Poole WPtel: [phone] [phone] FOLLOW UP 06/23/2022 Visit Diagnosis Plan: [...] I10 05/25/2022 Appointment: Con[facility] Poole [facility]Ptel[facility] [phone] [phone] [facility] 05/25/2022 Patient Education: losartan- [employer] Coupon [id number] [email or web address] Completed 05/25/2022 Visit Diagnosis Plan: Essential hypertension [...] E03.9 03/19/2022 Appointment: Cony Poole WPtel: [phone] [phone] US FOLLOW UP 03/19/2022 Visit Diagnosis Plan: COPD exacerbation Discussion: Co ntinue budesonide/performomist and use albuterol prn as rescue Go for COVID booster Flu shot in March Fwup 1month ICD-9 : 491.21 ICD-10 : J44.1 02/16/2022 Appointment: Cony Poole WPtel: [phone] [phone] US FOLLOW UP 02/16/2022 Visit Diagnosis Plan: COPD exacerbation Discussion: Co ntinue breztri 2p BID and albuterol prn Will switch to Nebulizer with Budesonide 0.5mg BID and Perforomist 20mcg BID with duoneb q4hrs prn Fwup 2 weeks unless worsening ICD-9 : 491.21 ICD-10 : J44.1 2022 Appointment: Cony Poole WPtel: [phone] [phone] US FOLLOW UP 2022 Visit Diagnosis [...] 01/27/2022 Appointment: Keeley Johnson WPtel: [phone] [phone] ACUTE ILLNESS 01/27/2022 Patient Education: Patient Medication Summary Completed 01/27/2022 Referral: Soy Rodriguez WPtel: [facility] [address] [id number] 09/30 - lm for office Completed 10/29/2021 [...] E03.9 10/28/2021 Appointment: Cony Poole WPtel: [phone] [phone] US FOLLOW UP 10/28/2021 Visit Diagnosis [...] R06.00 09/23/2021 Appointment: Cony Poole WPtel: [phone] [phone] US FOLLOW UP 09/23/2021 Appointment: Cony Poole WPtel: [address] [place] [phone] US CANCELED 09/08/2021 Visit Diagnosis Plan: Essential [...] : I87.2 08/21/2021 Appointment: Cony Poole WPtel: [address] [place], [place] [phone] US FOLLOW UP 08/21/2021 Appointment: Keeley Johnson WPtel: [phone] US CANCELED 08/12/2021 Visit Diagnosis Plan: Essential (primary) hypertension Discussion: Stable ICD-9 : 401.9 ICD-10 : I10 07/30/2021 Visit Diagnosis Plan: Atrial fibrillation Discussion: On cardizem and eliquis and rate controlled and asympotomatic Sees Dr Lopez in 2 weeks ICD-9 : 427.31 ICD-10 : I48.91 07/30/2021 Appointment: Cony Poole WPtel: [address] [place], [place] [phone] US FOLLOW UP 07/30/2021 Appointment: Cony Poole WPtel: [address] [place] [phone] US due to weather CANCELED 07/24/2021 Visit [...] : J45.909 06/19/2021 Appointment: Cony Poole WPtel: [address] [place] [address] FOLLOW UP 06/19/2021 Appointment: Cony Poole WPtel: [address] [place], [place] [phone] seen 05/08/21 at 1 pm by doctor as appt opened up CANCELED 05/14/2021 Appointment: Cony Poole WPtel: [address] [place], [place] [phone] UA 05/12/2021 Visit Diagnosis Plan: Recurrent UTI [...] : R60.0 05/08/2021 Appointment: Cony Poole WPtel: [address] [place], [place] [phone] ACUTE ILLNESS 05/08/2021 Visit Diagnosis Plan: Cervical radiculopathy Discussio n: Start PT ICD-9 : 723.4 ICD-10 : M54.12 04/28/2021 Visit Diagnosis Plan: Stress and adjustment reaction D iscussion: Stress Reducers Discussed Discussion: Stress Reducers Discussed meds ICD-9 : 309.89 ICD-10 : F43.29 04/28/2021 Appointment: Cony Poole WPtel: [phone] [place], [place] [phone] ACUTE ILLNESS 04/28/2021 Appointment: Cony Poole WPtel: [phone] [phone] US RESCHEDULED 03/25/2021 Visit Diagnosis Plan: Other fatigue Discussion: Will r echeck thyroid labs as previously scheduled, B12, and ferritin level per Dr. Brown- discussed could be causing fatigue. Will f/u after labs or sooner for worsening/concerns. ICD-9 : 780.79 ICD-10 : R53.83 03/19/2021 Appointment: Keeley Johnson WPtel: [phone] [phone] ACUTE ILLNESS 03/19/2021 Patient Education: Patient Medication Summary Completed 03/19/2021 Appointment: Cony Poole WPtel: [phone] [phone] US INJECTION 02/27/2021 Visit Diagnosis Plan: [...] I48.91 02/06/2021 Appointment: Cony Poole WPtel: [phone] [phone] ACUTE ILLNESS 02/06/2021 Care Plan: US EXAM OF HEAD AND NECK LOIN C : 30943-7 Pending 02/06/2021 Care Plan: DXA BONE DENSITY AXIAL LOINC : 16943-3 Pending 02/06/2021 Appointment: Keeley Johnson WPtel: [phone] [phone] CANCELED 12/24/2020 Visit Diagnosis Plan: Skin lesion of right leg Discuss ion: Appears to be healing- is smaller, no s/s of infection. Will f/u if does not improve or worsens. ICD-9 : 709.9 ICD-10 : L98.9 12/20/2020 Appointment: Keeley Johnson WPtel: [phone] [phone] OFFICE SURGERY 12/20/2020 Patient Education: Patient Medication Summary Completed 12/20/2020 Visit Diagnosis Plan: Nontraumatic blister of skin Dis cussion: Small isolated lesion, no s/s of infection. Bandaid and neosporin applied. 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 F/U for worsening/concerns or if more lesions appear. ICD-9 : 709.8 ICD-10 : R23.8 12/11/2020 Appointment: Keeley Johnson WPtel: [phone] [phone] ACUTE ILLNESS 12/11/2020 Patient Education: Patient [...] : R35.1 11/11/2020 Appointment: Cony Poole WPtel: [address] [place], [place] [phone] ACUTE ILLNESS 11/11/2020 Appointment: Cony Poole WPtel: [address] [place], [place] [phone] US CANCELED 11/11/2020 Visit Diagnosis Plan: Inflamed seborrheic keratosis Di scussion: Cryotherapy as above ICD-9 : 702.11 ICD-10 : L82.0 09/05/2020 Appointment: Cony Poole WPtel: [address] [place] [phone] ACUTE ILLNESS 09/05/2020 Visit Diagnosis Plan: Essential hypertension Discussio n: Stable ICD-9 : 401.9 ICD-10 : I10 07/29/2020 Visit Diagnosis Plan: Paroxysmal atrial fibrillation D iscussion: On eliquis ICD-9 : 427.31 ICD-10 : I48.0 07/29/2020 Visit Diagnosis Plan: Hypothyroidism Discussion: Lab d iscussed Will recheck lab in 2mos ICD-9 : 244.9 ICD-10 : E03.9 07/29/2020 Appointment: Cony Poole WPtel: [address] [place], [place] [phone] FOLLOW UP 07/29/2020 Visit Diagnosis Plan: Dizziness and giddiness Discussi on: Continue increased dose of Cardizem ER 120mg po BID and monitor BP/pulse Has LINQ device in place Discussed Kardia EKG Follow Up: 1 months ICD-9 : 780.4 ICD-10 : R42 06/24/2020 Appointment: Cony Poole WPtel: [address] [place], [place] [phone] [facility] Follow Up 06/24/2020 Visit Diagnosis [...] ICD-10 : R53.1 06/21/2020 Appointment: Apoorva Rueda [address] [place] [address] TELEMEDICINE 06/21/2020 Visit Diagnosis Plan: URI (upper respiratory infection ) Discussion: phone visit was completed today. covid order to be sent to for patient to have done tomorrow am. instructed to push fluids and call office with any new or worsening symptoms. to ED with worsening issues. remain quarantine until results are completed. ICD-9 : 465.9 ICD-10 : J06.9 03/19/2020 Appointment: Apoorva Rueda [address] [place] [address] TELEMEDICINE 03/19/2020 Visit Diagnosis Plan: Atrial fibrillation [...] I10 02/29/2020 Appointment: Con[facility] Poole WPtel: [phone] [phone] FOLLOW UP 02/29/2020 Care Plan: CT THORAX W/O DYE LOINC : 473 66-0 Pending 02/29/2020 Care Plan: MAMMOGRAM SCREENING LOINC : 2 4747-5 Pending 02/29/2020 Visit Diagnosis Plan: Stasis dermatitis Discussion: in structed to start using triamcinolone bid for a week and keep legs elevated when seated and compression hose. has routine follow up next week so will re-assess at that time. call office prior with new or worsening symptoms. ICD-9 : 454.1 ICD-10 : I87.2 02/22/2020 Appointment: Apoorva Rueda [address] [place] [address] ACUTE ILLNESS 02/22/2020 Appointment: Cony Poole WPtel: [phone] 02/20/2020 Visit Diagnosis Plan: Urinary tract infection Discussi on: based on patient's age and length of illness, clinical s/s, will give 1 gm rocephin in office. urine sent for culture. push fluids and call office with new or worsening symptoms. ICD-9 : 599.0 ICD-10 : N39.0 02/13/2020 Appointment: Apoorva Rueda [address] [place] [address] ACUTE ILLNESS 02/13/2020 Visit Diagnosis Plan: Neck pain Discussion: Daily stre tches Moist heat Topical muscle rub Can use baclofen 1/2 tab during day and full tab at night ICD-9 : 723.1 ICD-10 : M54.2 2020 Appointment: Cony Poole WPtel: [phone] ACUTE ILLNESS 2020 Visit Diagnosis Plan: Atrial [...] M25.531 01/22/2020 Appointment: Cony Poole WPtel: [phone] [phone] FOLLOW UP 01/22/2020 Visit Diagnosis Plan: Paroxysmal atrial fibrillation D iscussion: Stable with new meds Follow Up: 1 months ICD-9 : 427.31 ICD-10 : I48.0 12/26/2019 Visit Diagnosis Plan: Essential hypertension Discussio n: Stable ICD-9 : 401.9 ICD-10 : I10 12/26/2019 Appointment: Cony Poole WPtel: [phone] [phone] [place] [facility] Follow Up 12/26/2019 Appointment: Cony Poole WPtel: [phone] [phone] CANCELED 12/25/2019 Visit Diagnosis Plan: Lung [...] 428.0 ICD-10 : I50.9 11/27/2019 Appointment: Apoorva uReda [address] [place] [address] FOLLOW UP 11/27/2019 Visit Diagnosis Plan: Hypotension Discussion: Decrease amlodopine to once daily Monitor home BP/pulse and report readings in 2 weeks ICD-9 : 458.9 ICD-10 : I95.9 11/09/2019 Visit Diagnosis Plan: Urinary tract infection Discussi on: Cefdinir Culture urine ICD-9 : 599.0 ICD-10 : N39.0 11/09/2019 Appointment: Apoorva Rueda [address] [place] [address] CANCELED 11/09/2019 Appointment: Cony Poole WPtel: [address] [place] [address] ACUTE ILLNESS 11/09/2019 Patient Education: cefdinir- [employer] Coupon [id number] https://www.Curtume Erê/samplemd/resources/getResource/61/[email or web address]-[email or web address] Completed 11/09/2019 Visit Diagnosis Plan: Left leg swelling Discussion: St at LLE doppler now ICD-9 : 729.81 ICD-10 : M79.89 10/10/2019 Appointment: Cony Poole WPtel: [address] [place] [address] ACUTE ILLNESS 10/10/2019 Visit Diagnosis Plan: Muscle spasm Discussion: Can use tylenol 325mg po TID Topical muscle rub Baclofen 10mg 1/2-1 po q HS for spasm but hold temazepam while taking Notify if worsening or persists Stretches/Moist Heat ICD-9 : 728.85 ICD-10 : M62.838 08/25/2019 Appointment: Cony Poole WPtel: [address] [place], [place] [address] TELEMEDICINE 08/25/2019 Patient Education: baclofen- [employer] Coupon [id number] https://www.Curt[employer] Erê/samplemd/resources/getResource/61/[email or web address] Completed 08/25/2019 Visit Diagnosis Plan: Low back pain Discussion: Check L/S spine x-rays ICD-9 : 724.2 ICD-10 : M54.5 07/13/2019 Visit Diagnosis Plan: Sciatica of left side Discussion : Will likely start with PT pending x-ray results ICD-9 : 724.3 ICD-10 : M54.32 07/13/2019 App[facility]ment: [facility]ole [facility]Ptel[phone] [phone] [facility] 07/13/2019 Care Plan: X-RAY EXAM L-S SPINE 2/3 VWS LOINC : 51617-1 Pending 07/13/2019 Visit Diagnosis Plan: Pneumonia due to infectious orga nism Discussion: Repeat rocephin 1gm IM today Start cefdinir tomorrow To ER this weekend if worsens ICD-9 : 486 ICD-10 : J18.9 05/18/2019 Appointment: Cony Poole WPtel: [facility] [facility] US FOLLOW UP 05/18/2019 Patient Education: cefdinir- [employer] Coupon [id number] https://www.Curt[employer] Erê/AMKAI/resources/getResource/61/[email or web address]-[email or web address] Completed 05/18/2019 Patient Education: temazepam- [employer] Coupon [id number] https://www.[employer]/AMKAI/resources/getResource/61/[email or web address] Completed 05/18/2019 Patient Education: Synthroid- [employer] Coupon [id number] https://www.C[employer] Er[employer]/AMKAI/resources/getResource/61/04853jon-ro04-1r75-84 Completed 05/18/2019 Patient Education: Cytomel- [employer] Coupon [id number] https://www.C[employer]/AMKAI/resources/getResource/61/[email or web address]-w4 Completed 05/18/2019 Visit Diagnosis Plan: Pneumonia due to infectious orga nism Discussion: Rocephin 1gm IM now Recheck tomorrow ICD-9 : 486 ICD-10 : J18.9 05/17/2019 Appointment: Cony Poole WPtel[facility] [phone] [phone] [place] FOLLOW UP 05/17/2019 Appointment: Cony Poole WPtel: [address] [place], [place] [phone] 05/10/19 1630---see note in chart related to throat culture (km) CANCELED 05/10/2019 Appointment: Cony Poole WPtel: [address] [place], [place] [phone] [facility] 05/08/2019 Appointment: Cony Poole WPtel: [address] [place], [place] [phone] NURSE SERVICES 05/08/2019 Visit Diagnosis Plan: Stomatitis [...] : N39.0 04/24/2019 Appointment: Cony Poole WPtel: [address] [place], [place] [phone] FOLLOW UP 04/24/2019 Patient Education: nystatin- [employer] Coupon [id number] https://www.AMKAI.Cloudcam/samplemd/resources/getResource/61/[email or web address]-[email or web address] Completed 04/24/2019 Appointment: Cony Poole WPtel: [address] [place], [place] [phone] [facility] 04/21/2019 Visit Diagnosis Plan: Stomatitis and mucositis with ch bry of taste Discussion: Diflucan and nystatin susp Discussed oral biopsy ICD-9 : 528.00 ICD-10 : K12.1 04/10/2019 Appointment: Cony Poole WPtel: [address] [place], [place] [phone] ACUTE ILLNESS 04/10/2019 Patient Education: nystatin- [employer] Coupon [id number] https://www.AMKAI.Cloudcam/samplemd/resources/getResource/61/[email or web address]-ji Completed 04/10/2019 Appointment: Cony Poole WPtel: [address] [place], [place] [address] INJECTION 03/02/2019 Patient Education: INFLUENZA VACCINE CDC [...] : R35.1 02/16/2019 Appointment: Cony Poole WPtel: [address] [place], [place] [address] ACUTE ILLNESS 02/16/2019 Appointment: Cony Poole WPtel: [address] [place], [place] [phone] NO SHOW - FORGIVEN 02/15/2019 Appointment: Cony Poole WPtel: [address] [place], [place] [phone] BP CHECK 01/24/2019 Visit Diagnosis Plan: Acute upper respiratory infectio n, unspecified Discussion: cefdinir bid for 7 days. instructed to continue with allergy medications daily. call or rtc with new or worsening symptoms. ICD-9 : 465.9 ICD-10 : J06.9 12/20/2018 Appointment: Apoorva Rueda [address] [facility] ACUTE ILLNESS 12/20/2018 Visit Diagnosis Plan: Impacted cerumen, right ear Disc ussion: ear canal cleaned out with lavage. patient tolerated well and had immediate relief of hearing loss. no issues voiced. ICD-9 : 380.4 ICD-10 : H61.21 12/14/2018 Appointment: Apoorva Rueda [address] [facility] ACUTE ILLNESS 12/14/2018 Visit Diagnosis Plan: Essential [...] : I48.0 12/12/2018 Appointment: Cony Poole WPtel: [address] [place], [place] [address] US FOLLOW UP 12/12/2018 Visit Diagnosis Plan: Essential (primary) hypertension Discussion: Stable Patient sees cardiology next week--has been off sotalol since 09/15/18 and BP and pulse have been stable ICD-9 : 401.9 ICD-10 : I10 10/19/2018 Appointment: Cony Poole WPtel: [address] [place], [place] [phone] FOLLOW UP 10/19/2018 Appointment: Cony Poole WPtel: [address] [place], [place] [phone] US BP CHECK 10/13/2018 Visit Diagnosis Plan: Allergic rhinitis due to pollen Discussion: Continue zyrtec ICD-9 : 477.9 ICD-10 : J30.1 10/05/2018 Visit Diagnosis Plan: Essential (primary) hypertension Discussion: Stable Recheck 2 weeks ICD-9 : 401.9 ICD-10 : I10 10/05/2018 Appointment: Cony Poole WPtel: [phone] FOLLOW UP 10/05/2018 Patient Education: Synthroid- OptimizeRX Coupon [id number] https://www.Curtume Erê/AMKAI/resources/getResource/61/[email or web address] Completed 10/05/2018 Visit Diagnosis Plan: Allergic rhinitis due to pollen Discussion: Continue zyrtec Finish prednisone ICD-9 : 477.9 ICD-10 : J30.1 09/28/2018 Visit Diagnosis Plan: Hematuria, unspecified Discussio n: Recheck UA with microscopy in 1 week then fwup ICD-9 : 599.70 ICD-10 : R31.9 09/28/2018 Appointment: Cony Poole WPtel: [address] [place], [place] [phone] US FOLLOW UP 09/28/2018 Visit Diagnosis Plan: Allergic rhinitis due to pollen Discussion: Check CBC now May do low dose prednisone pending lab Recheck 2 days ICD-9 : 477.9 ICD-10 : J30.1 09/26/2018 Visit Diagnosis Plan: Slow transit constipation Discus jaelyn: Glycerin Suppository prn Miralax samples given today to use one daily ICD-9 : 564.01 ICD-10 : K59.01 09/26/2018 Appointment: Cony Poole WPtel: [phone] US FOLLOW UP 09/26/2018 Visit Diagnosis [...] ICD-10 : J20.9 09/23/2018 Appointment: Merry Diaz [facility] [facility] 09/23/2018 Patient Education: cefdinir- [employer] Coupon [id number] https://www.C[employer] Erê/samplemd/resources/getResource/61/[email or web address] Completed 09/23/2018 Visit Diagnosis Plan: Acute bronchitis, unspecified Di scussion: Rocephin today Go for CXR Flu negative Recheck tomorrow ICD-9 : 466.0 ICD-10 : J20.9 09/22/2018 Appointment: Cony Poole WPtel: [address] [place], [place] [phone] FOLLOW UP 09/22/2018 Visit Diagnosis Plan: Tachycardia, [...] ICD-10 : R30.0 09/20/2018 Appointment: Merry Diaz [facility] [facility] 09/20/2018 Visit Diagnosis Plan: Other fatigue Discussion: Tashi magaña Add B12 500mcg daily as B12 in low normal range Fwup 1 week ICD-9 : 780.79 ICD-10 : R53.83 09/15/2018 Visit Diagnosis Plan: Hypothyroidism, unspecified Disc ussion: Decrease Synthroid to 50mcg daily ICD-9 : 244.9 ICD-10 : E03.9 09/15/2018 Appointment: Cony Poole WPtel: 1 [phone] FOLLOW UP 09/15/2018 Appointment: Cony Poole WPtel: [address] [place], [place] [phone] UA 09/14/2018 Visit Diagnosis Plan: Chronic fatigue, unspecified Dis cussion: I think her sotalol may be a big factor so will start with updated lab and if it is normal then will hold sotalol and fwup in 1 week ICD-9 : 780.79 ICD-10 : R53.82 09/08/2018 Appointment: Cony Poole WPtel: [address] [place], [place] [phone] ACUTE ILLNESS 09/08/2018 Visit Diagnosis Plan: Dysuria Discussion: UA- positive for leuks, hematuria, nitrates. Will start patient on Macrobid and culture urine. Will call patient with results of culture. RTC with worsening symptoms, including fever, increased pain, abdominal pain. Patient states understanding. ICD-9 : 788.1 ICD-10 : R30.0 09/05/2018 Appointment: Merry Diaz [address] ACUTE ILLNESS 09/05/2018 Care Plan: RML ASSAY THYROID STIM HORMONE Pending 05/26/2018 Care Plan: RML ASSAY OF FREE THYROXINE Pe nding 05/26/2018 Appointment: Cony Poole WPtel: [address] [place] [phone] UA 04/20/2018 Appointment: Cony Poole WPtel: [address] [place], [place] [address] BP CHECK 04/13/2018 Visit Diagnosis Plan: Impacted cerumen, right ear Disc ussion: cerumen removed with irrigation and lavage. patient tolerated well and had immediate relief. ICD-9 : 380.4 ICD-10 : H61.21 03/18/2018 Appointment: Apoorva Rueda [address] ACUTE ILLNESS 03/18/2018 Patient Education: Patient [...] I10 03/03/2018 Appointment: Cony Poole WPtel: [phone] [phone] FOLLOW UP 03/03/2018 Patient Education: Patient Medication Summary Completed 03/03/2018 Visit Diagnosis Plan: Atopic dermatitis, unspecified D iscussion: instructed to apply triamcinolone bid for 2 weeks, until follow up. follow with your normal lotion and cover with compression hose. if worsening or no improvement, call clinic. ICD-9 : 691.8 ICD-10 : L20.9 02/16/2018 Appointment: Apoorva Rueda [address] ACUTE ILLNESS 02/16/2018 Patient Education: Patient Medication [...] : L89.611 01/26/2018 Appointment: Apoorva Rueda 504 [facility] ACUTE ILLNESS 01/26/2018 Patient Education: Patient Medication [...] : I10 11/30/2017 Appointment: Cony Poole WPtel: [phone] FOLLOW UP 11/30/2017 Patient Education: Patient Medication Summary Completed 11/30/2017 Visit Diagnosis Plan: Other seborrheic keratosis Discu ssion: Monitor ICD-9 : 702.19 ICD-10 : L82.1 11/04/2017 Appointment: Cony Poole WPtel: [phone] [phone] US Consult 11/04/2017 Patient Education: Patient Medication Summary Completed 11/04/2017 Visit Diagnosis Plan: Achilles tendinitis, right leg D iscussion: educated patient on RICE and the importance of performing all these activities. 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 to assist with [...] ICD-10 : M76.61 10/20/2017 Appointment: Apoorva Rueda [address] [place] [address] ACUTE ILLNESS 10/20/2017 Patient Education: Patient Medication Summary Completed 10/20/2017 Visit Diagnosis Plan: Essential (primary) hypertension Discussion: Stable ICD-9 : 401.9 ICD-10 : I10 08/30/2017 Visit Diagnosis Plan: Weakness Discussion: Check Cervi gerri spine x-ray due to primarily being in upper arms ICD-9 : 780.79 ICD-10 : R53.1 08/30/2017 Appointment: Cony Poole WPtel: [phone] [phone] FOLLOW UP 08/30/2017 Patient Education: Patient Medication Summary Completed 08/30/2017 Care Plan: X-RAY EXAM NECK SPINE 4/5VWS LOINC : 67349-1 Pending 08/30/2017 Patient Education: Patient Medication Summary Completed 08/13/2017 Care Plan: DXA BONE DENSITY AXIAL LOINC : 54310-6 Pending 08/13/2017 Patient Education: Patient Medication Summary Completed 07/01/2017 Care Plan: RML COMPREHEN METABOLIC PANEL LOINC : 93762-1 Pending 07/01/2017 Care Plan: RML ASSAY THYROID STIM HORMONE Pending 07/01/2017 Care Plan: RML ASSAY OF FREE THYROXINE Pe nding 07/01/2017 Care Plan: RML LIPID PANEL LOINC : 71364 -1 Pending 07/01/2017 Care Plan: CBC Pending [...] : E03.9 05/25/2017 Appointment: Cony Poole WPtel: [phone] FOLLOW UP 05/25/2017 Patient Education: Patient [...] : I10 03/22/2017 Appointment: Cony Poole WPtel: [address] [place], [place] [phone] FOLLOW UP 03/22/2017 Patient Education: Patient Medication Summary Completed 03/22/2017 Patient Education: Patient Medication Summary Completed 03/17/2017 Care Plan: RML ASSAY THYROID STIM HORMONE Pending 03/17/2017 Care Plan: RML ASSAY OF FREE THYROXINE Pe nding 03/17/2017 Care Plan: METABOLIC PANEL TOTAL CA LOIN C : 81030-8 Pending 03/17/2017 Appointment: Cony Poole WPtel: [address] [place], [place] [phone] US INJECTION 03/08/2017 Patient Education: Patient Medication Summary Completed 03/08/2017 Visit Diagnosis Plan: Hypothyroidism, unspecified Disc ussion: Increase synthroid to 75mcg daily and recheck 2mos Follow Up: 2 months ICD-9 : 244.9 ICD-10 : E03.9 01/18/2017 Visit Diagnosis Plan: Essential (primary) hypertension Discussion: Stable with current meds ICD-9 : 401.9 ICD-10 : I10 01/18/2017 Appointment: Cony Poole WPtel: [address] [place], [place] [phone] 8/10lm~sl FOLLOW UP 01/18/2017 Patient Education: Patient Medication Summary Completed 01/18/2017 Appointment: Cony Poole WPtel: [address] [place], [place] [phone] BP CHECK 01/11/2017 Patient Education: Patient Medication Summary Completed 01/11/2017 Patient Education: Patient Medication Summary Completed 01/11/2017 Care Plan: RML ASSAY THYROID STIM HORMONE Pending 01/11/2017 Care Plan: RML ASSAY OF FREE THYROXINE Pe nding 01/11/2017 Appointment: Cony Poole WPtel: [address] [place], [place] [phone] BP CHECK 01/04/2017 Patient Education: Patient Medication Summary Completed 01/04/2017 Appointment: Cony Poole WPtel: [address] [place], [place] [phone] BP CHECK 12/28/2016 Patient Education: Patient Medication Summary Completed 12/28/2016 Appointment: Cony Poole WPtel: [phone] [phone] US BP CHECK 12/24/2016 Patient Education: [...] : R60.0 12/16/2016 Appointment: Cony Poole WPtel: [address] [place], [place] [phone] ACUTE ILLNESS 12/16/2016 Patient Education: Patient Medication [...] : E03.9 11/18/2016 Appointment: Cony Poole WPtel: [address] [place], [place] [phone] US 11/17 lm ~sl 11/18 confirmed~sl FOLLOW [...] : E03.9 11/04/2016 Appointment: Cony Poole WPtel: [address] [place], [place] [phone] 11/03 confirmed `sl FOLLOW UP 11/04/2016 Patient Education: Patient Medication Summary Completed 11/04/2016 Visit Diagnosis Plan: Hypotension due to drugs Discuss ion: Hydrate Hold Losartan tonight then decrease to 50mg q HS BP check in 1 week ICD-9 : 458.8 ICD-10 : I95.2 10/27/2016 Appointment: Cony Poole WPtel: [address] [place], [place] [phone] 10/26 Confirmed~sl FOLLOW UP 10/27/2016 Patient Education: Patient Medication Summary Completed 10/27/2016 Appointment: Cony Poole WPtel: [address] [place], [place] [phone] UA 10/26/2016 Patient Education: Patient Medication Summary Completed 10/26/2016 Visit Diagnosis Plan: Cellulitis of left lower limb Di scussion: Finish Clindamycin Follow Up: 2 weeks ICD-9 : 682.6 ICD-10 : L03.116 10/13/2016 Appointment: Cony Poole WPtel: [address] [place], [place] [phone] 10/12 lm-sp WORK IN 10/13/2016 Patient Education: Patient Medication Summary Completed 10/13/2016 Visit Diagnosis Plan: Cellulitis of left lower limb Di scussion: Change keflex to clindamycin Add prednisone Continue compression socks and elevate ICD-9 : 682.6 ICD-10 : L03.116 10/08/2016 Appointment: Cony Poole WPtel: [phone] [phone] US 10/07 lm~sl 10/08 confirmed`sl FOLLOW [...] L03.116 10/05/2016 Appointment: Cony Poole WPtel: [phone] [phone] 10/01 confirmed `sl FOLLOW UP 10/05/2016 [...] METABOLIC PANEL TOTAL CA LOIN C : 38076-2 Pending 09/30/2016 Visit Diagnosis Plan: Other fatigue [...] I10 08/25/2016 Appointment: Cony Poole WPtel: [phone] [phone] 08/24 confirmed~sl FOLLOW UP 08/25/2016 Patient Education: Patient Medication Summary Completed 08/25/2016 Appointment: Cony Poole WPtel: [phone] [phone] 07/30 rescheduled~sl RESCHEDULED 08/19/2016 Patient Education: Patient Medication Summary Completed 08/19/2016 Care Plan: RML COMPREHEN METABOLIC PANEL LOINC : 43407-3 Pending 08/19/2016 Care Plan: CBC Pending 08/19/2016 [...] I10 07/28/2016 Appointment: Cony Poole WPtel: [phone] [phone] 07/27 confirmed~sl ACUTE ILLNESS 07/28/2016 Patient Education: Patient Medication Summary Completed 07/28/2016 Patient Education: Patient Medication Summary Completed 07/06/2016 Care Plan: RML ASSAY THYROID STIM HORMONE Pending 07/06/2016 Care Plan: RML ASSAY OF FREE THYROXINE Pe nding 07/06/2016 Appointment: Cony Poole WPtel: [phone] [phone] BP CHECK 06/25/2016 Patient Education: Patient Medication Summary Completed 06/25/2016 Patient Education: Patient Medication Summary Completed 06/25/2016 Care Plan: CBC Pending 06/25/2016 Care Plan: URINALYSIS [place] : 58[address]-3 Pending 06/25/2016 Visit Diagnosis Plan: Essential (primary) hypertension Discussion: Discussed with Dr Poole Increase HCTZ as above Check CMP in 1-2 weeks Patient to call Dr Noble for follow up with him, 1-2 weeks and management of her HTN ICD-9 : 401.9 ICD-10 : I10 06/23/2016 Appointment: Merle Hernandez [address] [place] [address] ACUTE ILLNESS 06/23/2016 Patient Education: Patient Medication [...] plan and agrees 06/03/2016 Appointment: Merle Hernandez [address] [place] [address] ACUTE ILLNESS 06/03/2016 Patient Education: Patient Medication Summary Completed 06/03/2016 Visit Plan: Exam is fairly benign Flu ra n since her symptoms had such a sudden onset - results negative Likely viral URI Supportive care reviewed Monitor closely Follow up PRN 05/26/2016 Appointment: Merle Hernandez [address] [place] [address] ACUTE ILLNESS 05/26/2016 Patient Education: Patient Medication Summary Completed 05/26/2016 Visit Plan: Continue current meds and mo nitor BP Continue temazepam at current dose--discussed risks but patient feels much better since getting good rest Check CBC, CMP, TSH, Free T4 05/20/2016 Appointment: Cony Poole WPtel: [phone] [phone] 05/19 confirmed~sl FOLLOW UP 05/20/2016 Patient Education: Patient Medication Summary Completed 05/20/2016 Appointment: Cony Poole WPtel: [address] [place], [place] [phone] US CANCELED 04/07/2016 Visit Plan: Check right ankle x-ray Disc ussed may need veins in right ankle worked on if swelling/pain persist 03/19/2016 Appointment: Cony Poole WPtel: [address] [place], [place] [phone] ACUTE ILLNESS 03/19/2016 Patient Education: Patient Medication Summary Completed 03/19/2016 Visit Plan: Increase HCTZ to 12.5mg po e very day Recheck Chem [address] Noble next week to discuss antiarrhythmic meds Prevnar 13 today 01/13/2016 Appointment: Cony Poole WPtel: [address] [place], [place] [phone] 01/08 confirmed-sp FOLLOW UP 01/13/2016 Patient Education: Patient Medication Summary Completed 01/13/2016 Visit Plan: Continue current meds and mo nitor BP Check Chem 7 12/12/2015 Appointment: Cony Poole WPtel: [address] [place], [place] [phone] 7/6confirmed sl FOLLOW UP 12/12/2015 Patient Education: Patient Medication Summary Completed 12/12/2015 Appointment: Cony Poole WPtel: [address] [place], [place] [phone] US RESCHEDULED 12/10/2015 Visit Plan: Add Restoril 15mg q HS--stuart ent used in hospital with no complications Add back low dose HCTZ at 12.5mg every other day Monitor BP Can hold on nebulizer treatments Check Chem 7 now and recheck 1week 12/05/2015 Appointment: Cony Poole WPtel: [phone] [phone] 12/02 confirmed~sl ER Follow UP 12/05/2015 Patient Education: Patient Medication Summary Completed 12/05/2015 Appointment: Cony Poole WPtel: [phone] [phone] WORK IN 11/28/2015 Visit Plan: Due to patient's symptoms an d high blood pressure I consulted Outpatient orders written for 1L IV fluids with 1G Rocephin and Zofran for nausea. Patient sent to hospital and followup in am. 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 Keep BP log and follow up PRN 10/21/2015 Appointment: [facility] [facility] 10/21/2015 Patient Education: Patient Medication Summary Completed 10/21/2015 Visit Plan: Stop amlodopine Increase met oprolol to to 50mg q HS and 25mg in AM Switch cozaar to 100mg daily as the insurance does not want to pay for 50mg BID dosing Low Na diet and elevate legs See Cardiology 10/17/2015 Appointment: Cony Poole WPtel: [address] [place], [place] [phone] onfirm~sl FOLLOW UP 10/17/2015 Patient Education: Patient Medication Summary Completed 10/17/2015 Visit Plan: Pt to bring in home BP/HR lo g for review Orders given for CBC, CMP, TSH, MG and 48 holter for further evaluation 10/07/2015 Appointment: Merle Hernandez [address] [place] [address] ACUTE ILLNESS 10/07/2015 Patient Education: Patient Medication Summary Completed 10/07/2015 Visit Plan: Cold vs Allergies Continue z yrtec and nasacort Add steroid pack as above Add plain mucinex, nasal rinses, vicks, humidifier, etc Call if not improving or if worsening - will likely add zpak 09/03/2015 Appointment: Merle Hernandez [address] [place] [address] ACUTE ILLNESS 09/03/2015 Patient Education: Patient Medication Summary Completed 09/03/2015 Visit Plan: BP values reviewed Change me toprolol to 12.5mg po BID BP values in 1month 08/01/2015 Appointment: Cony Poole WPtel: [address] [place], [place] [phone] 07/31 confirmed-SP FOLLOW UP 08/01/2015 Patient Education: Patient Medication Summary Completed 08/01/2015 Visit Plan: Had lab in the fall--shanelle obt ain copy and plan on repeat lab 6mos from last lab then fwup after that Continue current meds Mammogram up-to-date 06/27/2015 Appointment: Cony Poole WPtel: [address] [place], [place] [phone] 06/26/15 appt confirmed cn NEW PATIENT 06/27 Patient Education: Patient Medication Summary Completed 06/27/2015 Referral: Donald Noble WPtel: [facility] [address] [id number] [place] Referral Initiated Instructions Comment Date . [...] . 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
--- OUTSIDE RECORDS SUMMARY | 2022-11-09 15:30 | XMS REPORT | CCD ---
Author Author Tanna Poole D.O. 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 PP Unavailable CCM Unavailable Summary Purpose Interface Exchange Insurance Providers Payer name Policy type / Coverage type Covered constitution party ID Effective Begin Date Effective End Date WPS MEDIC[place] Medicare Part B [id number] 2017 Unknown [facility] B [id number] Un known Family history Sister Diagnosis Age [...] Unknown Retired 06/27/[address]: 6363141 Former smoker quit 1986 06/27/[address]: 351241516 Never drinks alcohol 2015 Has the patient [...] Effexor XR 37.5 mg capsule,extended release RxNorm: 441037 Take 1 Capsule(s) Oral QPM for mood 10/01/2022 12/29/2022 Active losartan 50 mg tablet RxNorm: 165051 Take 1 Tablet(s) Oral two times a day 09/16/2022 03/14/2023 Active Synthroid 75 mcg tablet RxNorm: 332300 Take 1 Tablet(s) Oral MWF 11/25/2022 Active Synthroid 88 mcg tablet RxNorm: 111205 Take 1 Tablet(s) Oral QD Tu, Th, Sa, [place] 08/28/2022 11/25/2022 Active Synthroid 88 mcg tablet RxNorm: 301902 Take 1 Tablet(s) Oral QD Tu, Th, Sa, [place] 08/25/2022 08/25/2022 Inactive Synthroid 75 mcg tablet RxNorm: 154023 Take 1 Tablet(s) Oral MWF 08/25/2022 Inactive Synthroid 75 mcg tablet RxNorm: 543928 Take 1 Tablet(s) Oral MWF 08/24/2022 Inactive hydralazine 10 mg tablet RxNorm: 073729 Take 1 Tablet(s) Oral t wo times a day 07/28/2022 10/25/2022 Active metoprolol succinate ER 100 mg tablet,extended release 24 hr RxNorm: 641200 Take 1 Tablet(s) Oral QPM 07/28/2022 07/28/2022 Inactive Synthroid 88 mcg tablet RxNorm: 289880 Take 1 Tablet(s) Oral QD Wednesday-Wednesday07/28/2022 08/24/2022 Inactive Synthroid 75 mcg tablet RxNorm: 128967 Take 1 Tablet(s) Oral QA M Sat/Sun 07/28/2022 08/24/2022 Inactive losartan 50 mg tablet RxNorm: 673106 1 Tablet(s) Oral two times a day 07/28/2022 07/28/2022 Inactive Zithromax Z-Topher 250 mg tablet RxNorm: 434360 Take 2 Tab let(s) Oral QD x1 dose then 1 daily 07/14/2022 07/18/2022 Inactive losartan 50 mg tablet RxNorm: 461115 TAKE ONE TABLET BY MOUTH DAILY 07/14/2022 07/27/2022 Inactive Synthroid 88 mcg tablet RxNorm: 239751 Take 1 Tablet(s) Oral QD Wednesday-Wednesday06/23/2022 07/27/2022 Inactive Synthroid 75 mcg tablet RxNorm: 853808 Take 1 Tablet(s) Oral QA M Sat/Sun 06/23/2022 07/27/2022 Inactive Xarelto 15 mg tablet RxNorm: 8305577 Take 1 Tablet(s) Oral QD 06/0906/09/2022 Inactive atorvastatin 20 mg tablet RxNorm: 501594 Take 1 Tablet(s) Oral QD 0 06/09/2022 06/09/2022 Inactive metoprolol succinate ER 100 mg tablet,extended release 24 hr RxNorm: 236471 Take 1 Tablet(s) Oral QD 06/09/2022 06/09/2022 Inactive budesonide 0.5 mg/2 mL suspension for nebulization RxNorm: 3 60451 USE 1 VIAL IN NEBULIZER TWICE DAILY (RINSE MOUTH AFTER EACH TREATMENT) 05/29/2022 No Stop Date Active Perforomist 20 mcg/2 mL solution for nebulization RxNorm: 12 39704 USE 1 VIAL IN NEBULIZER TWICE DAILY (MORNING AND EVENING) 05/29/2022 No Stop Date Acti ve Perforomist 20 mcg/2 mL solution for nebulization RxNorm: 12 91549 USE 1 VIAL IN NEBULIZER TWICE DAILY - morning and evening 05/26/2022 05/26/2022 Inac tive Perforomist 20 mcg/2 mL solution for nebulization RxNorm: 12 65489 USE 1 VIAL IN NEBULIZER TWICE DAILY - morning and evening 05/26/2022 05/26/2022 Inac tive budesonide 0.5 mg/2 mL suspension for nebulization RxNorm: 3 46782 USE 1 VIAL IN NEBULIZER TWICE DAILY - rinse mouth after treatment 05/26/2022 05/26/20 Inactive albuterol sulfate 2.5 mg/3 mL (0.083 %) solution for n ebulization RxNorm: 137015 USE 1 VIAL IN NEBULIZER DAILY - for rescue 05/26/2022 05/26/2022 Inactive budesonide 0.5 mg/2 mL suspension for nebulization RxNorm: 3 26587 USE 1 VIAL IN NEBULIZER TWICE DAILY - rinse mouth after treatment 05/26/2022 05/26/20 22 Inactive budesonide 0.5 mg/2 mL suspension for nebulization RxNorm: 3 74054 USE 1 VIAL IN NEBULIZER TWICE DAILY - rinse mouth after treatment 05/26/2022 05/26/20 22 Inactive losartan 50 mg tablet RxNorm: 014975 Take 1 Tablet(s) Oral two times a day 05/25/2022 05/25/2022 Inactive Synthroid 88 mcg tablet RxNorm: 682040 Take 1 Tablet(s) Oral QD 03/202206/22/2022 Inactive Astepro Allergy 205.5 mcg (0.15 %) nasal spray RxNorm: 66513 84 Take 1 [place] Nasal two times a day in each nostril 03/19/2022 No Stop Date Active Perforomist 20 mcg/2 mL solution for nebulization RxNorm: 12 65612 USE 1 VIAL IN NEBULIZER TWICE DAILY - morning and evening 02/17/2022 02/17/2022 Inac tive Xarelto 15 mg tablet RxNorm: 0312090 Take 1 Tablet(s) Oral QD 02/1706/09/2022 Inactive budesonide 0.5 mg/2 mL suspension for nebulization RxNorm: 3 11555 USE 1 VIAL IN NEBULIZER TWICE DAILY - rinse mouth after treatment 02/05/2022 02/06/20 Inactive Perforomist 20 mcg/2 mL solution for nebulization RxNorm: 12 92512 USE 1 VIAL IN NEBULIZER TWICE DAILY - morning and evening 02/05/2022 02/05/2022 Inac tive albuterol sulfate 2.5 mg/3 mL (0.083 %) solution for n ebulization RxNorm: 027410 USE 1 VIAL IN NEBULIZER DAILY - for rescue 02/05/2022 02/05/2022 Inactive ipratropium bromide 0.02 % solution for inhalation RxNorm: 8 79089 USE 1 VIAL IN NEBULIZER EVERY 4 HOURS - and as needed 02/05/2022 02/16/2022 Inactive albuterol sulfate HFA 90 mcg/actuation aerosol inhaler RxNor m: 1890633 Take 2 Puff(s) Inhalation Q4H as needed as needed 01/27/2022 No Stop Date Activ e Synthroid 88 mcg tablet RxNorm: 709041 Take 1 Tablet(s) Oral QD 01/26/2022 Inactive BRAND NAME ONLY losartan 50 mg tablet RxNorm: 679271 TAKE ONE TABLET BY MOUTH DAILY , REPLACES 25MG DOSE 01/15/2022 07/13/2022 Inactive Symbicort 160 mcg-4.5 mcg/actuation HFA aerosol inhaler RxNo rm: 3353334 2 Puff(s) Inhalation two times a day 10/30/2021 11/28/2021 Inactive Symbicort 160 mcg-4.5 mcg/actuation HFA aerosol inhaler RxNo rm: 2059858 2 Puff(s) Inhalation two times a day 10/30/2021 10/30/2021 Inactive Synthroid 88 mcg tablet RxNorm: 814286 Take 1 Tablet(s) Oral QD 10/29/2021 Inactive Breo Ellipta 200 mcg-25 mcg/dose powder for inhalation RxNor m: 4157089 Inhale 1 Puff(s) Inhalation QD 10/29/2021 10/29/2021 Inactive Breo Ellipta 200 mcg-25 mcg/dose powder for inhalation RxNor m: 5592279 Inhale 1 Puff(s) Inhalation QD 10/29/2021 10/29/2021 Inactive replaces a dvair Flonase Allergy Relief 50 mcg/actuation nasal spray,suspensi on RxNorm: 5718647 2 [place] Nasal every night at bedtime 10/28/2021 10/28/2021 Inactive Synthroid 88 mcg tablet RxNorm: 807069 Take 1 Tablet(s) Oral QD 10/28/2021 Inactive BRAND NAME ONLY fluticasone 113 mcg-salmeterol 14 mcg/actuation breath activated powdr RxNorm: 0698270 Inhale 1 Puff(s) Inhalation QAM 10/28/2021 10/28/2021 Inactive losartan 50 mg tablet RxNorm: 919600 1 Tablet(s) Oral QD replac es 25mg dose 10/20/2021 10/20/2021 Inactive metoprolol succinate ER 100 mg tablet,extended release 24 hr RxNorm: 530303 1 Tablet(s) Oral QD 09/23/2021 06/09/2022 Inactive potassium chloride ER 8 mEq capsule,extended release RxNorm: 783957 Take 1 Capsule(s) Oral QOD with lasix 09/15/2021 03/18/2022 Inactive Synthroid 88 mcg tablet RxNorm: 688683 Take 1 Tablet(s) Oral QD 12/202110/27/2021 Inactive BRAND NAME ONLY potassium chloride ER 8 mEq capsule,extended release RxNorm: 346335 1 Capsule(s) Oral QOD with lasix 09/11/2021 09/11/2021 Inactive metoprolol succinate ER 100 mg tablet,extended release 24 hr RxNorm: 187854 Take 1/2 Tablet(s) Oral QD 08/21/2021 09/22/2021 Inactive Synthroid 88 mcg tablet RxNorm: 016298 Take 1 Tablet(s) Oral QD 07/23/2021 Inactive BRAND NAME ONLY clindamycin HCl 300 mg capsule RxNorm: 457375 Take 1 Ca psule(s) Oral three times a day 07/03/2021 07/09/2021 Inactive clindamycin HCl 300 mg capsule RxNorm: 404123 Take 1 Ca psule(s) Oral three times a day 07/03/2021 07/03/2021 Inactive Synthroid 88 mcg tablet RxNorm: 090075 Take 1 Tablet(s) Oral QD 07/03/2021 Inactive BRAND NAME ONLY0 potassium chloride ER 8 mEq capsule,extended release RxNorm: 301949 1 Capsule(s) Oral QOD with lasix 06/26/2021 09/11/2021 Inactive potassium chloride ER 8 mEq tablet,extended release RxNorm: 644613 Take 2 Tablet(s) Oral two times a day 06/23/2021 06/25/2021 Inactive atorvastatin 20 mg tablet RxNorm: 285691 Take 1 Tablet(s) Oral QD 0 06/19/2021 06/09/2022 Inactive diltiazem CD 300 mg capsule,extended release 24 hr RxNorm: 8 52945 Take 1 Capsule(s) Oral QAM 06/19/2021 08/20/2021 Inactive potassium chloride ER 8 mEq tablet,extended release RxNorm: 183421 Take 2 Tablet(s) Oral two times a day 06/19/2021 06/23/2021 Inactive fluticasone 113 mcg-salmeterol 14 mcg/actuation breath activated powdr RxNorm: 2402000 Inhale 1 Puff(s) Inhalation QAM 06/19/2021 10/27/2021 Inactive furosemide 40 mg tablet RxNorm: 589875 Take 1 Tablet(s) Oral QAM 03/18/2022 Inactive alprazolam 0.25 mg tablet RxNorm: 163919 Take 1 Tablet(s) Oral Q8H as needed 06/19/2021 07/29/2021 Inactive gabapentin 100 mg capsule RxNorm: 359605 Take 2 Capsule (s) Oral every night at bedtime 06/19/2021 07/29/2021 Inactive losartan 25 mg tablet RxNorm: 423764 Take 1 Tablet(s) Oral QD 06/1910/20/2021 Inactive tramadol 50 mg tablet RxNorm: 719244 Take 1 Tablet(s) O ral three times a day as needed 06/19/2021 10/27/2021 Inactive Tylenol Arthritis Pain 650 mg tablet,extended release RxNorm : 9825994 Take 1 Tablet(s) Oral four times a day 05/05/2021 03/18/2022 Inactive Synthroid 88 mcg tablet RxNorm: 858762 Take 1 Tablet(s) Oral QD 04/30/2021 Inactive BRAND NAME ONLY0 Synthroid 88 mcg tablet RxNorm: 459254 1 Tablet(s) Oral QD 04/29/20 21 04/29/2021 Inactive Synthroid 88 mcg tablet RxNorm: 144482 1 Tablet(s) Oral QD 04/29/20 21 04/29/2021 Inactive magnesium oxide 400 mg (241.3 mg magnesium) tablet RxNorm: 1 34605 1 Tablet(s) Oral every night at bedtime 04/03/2021 No Stop Date Active Vitamin B12 1000mcg Tablet RxNorm: Take 1/2 Tablet(s) Oral QD 04/03/2021 No Stop Date Active aspirin 81 mg capsule RxNorm: 106434 1 Capsule(s) Oral QD No Stop Date Active doxazosin 1 mg tablet RxNorm: 349254 1 Tablet(s) Oral QPM 03/19/2021 04/02/2021 Inactive Cartia XT 240 mg capsule,extended release RxNorm: 128203 Take 1 Capsule(s) Oral QD 02/06/2021 06/18/2021 Inactive fluticasone propionate 50 mcg/actuation nasal spray,suspensi on RxNorm: 9140898 SHAKE LIQUID AND USE 2 SPRAYS IN EACH NOSTRIL EVERY NIGHT AT BEDTIME 12/19/2020 01/17/2021 Inactive diltiazem 120 mg tablet RxNorm: 205358 1 Tablet(s) Oral QD 12/12/1902/05/2021 Inactive Flonase Allergy Relief 50 mcg/actuation nasal spray,suspensi on RxNorm: 8380585 2 [place] Nasal every night at bedtime 11/21/2020 11/21/2020 Inactive diltiazem 120 mg tablet RxNorm: 436572 Take 1 Tablet(s) Oral tw o times a day 11/11/2020 12/10/2020 Inactive oxybutynin chloride 5 mg tablet RxNorm: 036258 Take 1 T ablet(s) Oral every night at bedtime for overactive bladder 11/11/2020 11/11/2020 Inactive oxybutynin chloride 5 mg tablet RxNorm: 182673 Take 1 T ablet(s) Oral every night at bedtime for overactive bladder 11/11/2020 11/11/2020 Inactive oxybutynin chloride 5 mg tablet RxNorm: 957571 TAKE 1 T ABLET BY MOUTH EVERY NIGHT AT BEDTIME FOR OVERACTIVE BLADDER 11/11/2020 02/05/2021 Inactive Patient requests 90 days supply MagOx 400 mg (241.3 mg magnesium) tablet RxNorm: 154769 TAKE 1 TABLET BY MOUTH EVERY OTHER DAY 10/28/2020 02/05/2021 Inactive Synthroid 75 mcg tablet RxNorm: 922746 TAKE 1 TABLET BY MOUTH EVERY DAY DIRECTED 09/06/2020 04/29/2021 Inactive diltiazem CD 120 mg capsule,extended release 24 hr RxNorm: 8 64713 1 Tablet(s) Oral QD 09/05/2020 11/10/2020 Inactive Synthroid 75 mcg tablet RxNorm: 211586 TAKE 1 TABLET BY MOUTH EVERY DAY DIRECTED 09/03/2020 09/05/2020 Inactive Synthroid 75 mcg tablet RxNorm: 304943 TAKE 1 TABLET BY MOUTH EVERY DAY DIRECTED 09/03/2020 09/02/2020 Inactive MagOx 400 mg (241.3 mg magnesium) tablet RxNorm: 948556 1 Table t(s) Oral QOD 07/30/2020 11/10/2020 Inactive MagOx 400 mg (241.3 mg magnesium) tablet RxNorm: 252030 1 Table t(s) Oral QOD 07/29/2020 07/29/2020 Inactive diltiazem CD 120 mg capsule,extended release 24 hr RxNorm: 8 13094 1 Tablet(s) Oral two times a day 07/29/2020 09/04/2020 Inactive diltiazem CD 120 mg capsule,extended release 24 hr RxNorm: 8 33349 1 Tablet(s) Oral two times a day 07/04/2020 07/03/2020 Inactive diltiazem CD 120 mg capsule,extended release 24 hr RxNorm: 8 41034 1 Tablet(s) Oral two times a day 07/04/2020 07/28/2020 Inactive Eliquis 5 mg tablet RxNorm: 2247316 TAKE 1 TABLET BY MOUTH TWICE DAILY 06/10/2020 02/16/2022 Inactive diltiazem CD 120 mg capsule,extended release 24 hr RxNorm: 8 82904 TAKE 1 CAPSULE BY MOUTH DAILY 06/10/2020 06/09/2020 Inactive Eliquis 5 mg tablet RxNorm: 7681837 TAKE 1 TABLET BY MOUTH TWICE DAILY 06/10/2020 06/09/2020 Inactive diltiazem CD 120 mg capsule,extended release 24 hr RxNorm: 8 41617 TAKE 1 CAPSULE BY MOUTH DAILY 06/10/2020 07/03/2020 Inactive Synthroid 75 mcg tablet RxNorm: 179918 TAKE 1 TABLET BY MOUTH EVERY DAY DIRECTED 06/10/2020 09/02/2020 Inactive Flonase Allergy Relief 50 mcg/actuation nasal spray,suspensi on RxNorm: 6350521 2 [place] Nasal every night at bedtime 04/26/2020 04/26/2020 Inactive Vitamin D3 25 mcg (1,000 unit) capsule RxNorm: 448750 3 Capsule (s) Oral QD 04/22/2020 No Stop Date Active MagOx 400 mg (241.3 mg magnesium) tablet RxNorm: 607715 1 Table t(s) Oral QOD 04/22/2020 04/21/2020 Inactive MagOx 400 mg (241.3 mg magnesium) tablet RxNorm: 351632 1 Table t(s) Oral QOD 04/22/2020 07/21/2020 Inactive prednisone 10 mg tablet RxNorm: 359009 1 Tablet(s) Oral two norma es a day 03/22/2020 03/27/2020 Inactive Eliquis 5 mg tablet RxNorm: 6690179 TAKE 1 TABLET BY MOUTH TWICE DAILY 03/15/2020 06/09/2020 Inactive Synthroid 75 mcg tablet RxNorm: 492389 TAKE 1 TABLET BY MOUTH EVERY DAY DIRECTED 03/15/2020 06/09/2020 Inactive furosemide 20 mg tablet RxNorm: 035748 1 Tablet(s) Oral QAM as needed 03/14/2020 06/20/2020 Inactive diltiazem CD 120 mg capsule,extended release 24 hr RxNorm: 8 01765 TAKE 1 CAPSULE BY MOUTH DAILY 03/14/2020 06/09/2020 Inactive amiodarone 200 mg tablet RxNorm: 004873 TAKE 1 TABLET BY MOUTH SIMON Y 03/14/2020 06/23/2020 Inactive potassium chloride ER 20 mEq tablet,extended release RxNorm: 399583 1 Tablet(s) Oral two times a day as needed 02/29/2020 06/20/2020 Inactive furosemide 20 mg tablet RxNorm: 535394 1 Tablet(s) Oral QAM as needed 02/29/2020 03/13/2020 Inactive Macrobid 100 mg capsule RxNorm: 554985 1 Capsule(s) Oral two ti mes a day 02/15/2020 02/18/2020 Inactive Macrobid 100 mg capsule RxNorm: 710352 1 Capsule(s) Oral two ti mes a day 02/15/2020 02/14/2020 Inactive magnesium oxide 400 mg (241.3 mg magnesium) tablet RxNorm: 1 76867 TAKE 1/2 TABLET BY MOUTH EVERY DAY 01/30/2020 02/21/2020 Inactive Flonase Allergy Relief 50 mcg/actuation nasal spray,suspensi on RxNorm: 4249093 2 [place] Nasal every night at bedtime 01/22/2020 04/25/2020 Inactive furosemide 20 mg tablet RxNorm: 106230 1 Tablet(s) Oral QOD 020 02/12/2020 Inactive potassium chloride ER 20 mEq tablet,extended release RxNorm: 493320 1 Tablet(s) Oral two times a day 01/04/2020 02/12/2020 Inactive potassium chloride ER 20 mEq tablet,extended release RxNorm: 800992 TAKE 1 TABLET BY MOUTH TWICE DAILY 01/03/2020 01/03/2020 Inactive diltiazem CD 120 mg capsule,extended release 24 hr RxNorm: 8 91149 1 Capsule(s) Oral QD 12/26/2019 03/13/2020 Inactive Colace 100 mg capsule RxNorm: 3944037 2 Capsule(s) Oral QD 12/26/19 20 03/18/2022 Inactive Flonase Allergy Relief 50 mcg/actuation nasal spray,suspensi on RxNorm: 8058701 2 [place] NASAL QHS 12/26/2019 12/28/2019 Inactive amiodarone 200 mg tablet RxNorm: 383765 1 Tablet(s) Oral QD 020 01/21/2020 Inactive Eliquis 5 mg tablet RxNorm: 7988604 1 Tablet(s) Oral two times a da y 12/26/2019 03/14/2020 Inactive potassium chloride ER 20 mEq tablet,extended release RxNorm: 590008 2 Tablet(s) Oral QD with furosemide 12/20/2019 01/21/2020 Inactive furosemide 20 mg tablet RxNorm: 029601 1 Tablet(s) Oral QAM 020 01/18/2020 Inactive Synthroid 75 mcg tablet RxNorm: 002313 1 Tablet(s) Oral QD 12/18/19 20 02/16/2020 Inactive potassium chloride ER 20 mEq tablet,extended release RxNorm: 405121 2 Tablet(s) Oral QOD with furosemide 11/29/2019 12/19/2019 Inactive furosemide 40 mg tablet RxNorm: 236080 1 Tablet(s) Oral QOD 020 12/19/2019 Inactive amlodipine 5 mg tablet RxNorm: 608589 1 Tablet(s) Oral every ni ght at [...] 11/22/2019 Inactive cefdinir 300 mg capsule RxNorm: 721222 1 Capsule(s) Oral two ti mes a day 11/09/2019 11/16/2019 Inactive temazepam 15 mg capsule RxNorm: 086795 TAKE 1 CAPSULE B Y MOUTH EVERY NIGHT AT BEDTIME 11/06/2019 12/18/2019 Inactive magnesium oxide 400 mg (241.3 mg magnesium) tablet RxNorm: 1 52880 TAKE 1/2 TABLET BY MOUTH EVERY DAY 11/03/2019 2020 Inactive Synthroid 75 mcg tablet RxNorm: 936546 TAKE 1 TABLET BY MOUTH E VERY DAY 10/16/2019 12/17/2019 Inactive potassium chloride ER 20 mEq tablet,extended release RxNorm: 113743 TAKE 1 TABLET BY MOUTH TWICE DAILY 10/02/2019 11/28/2019 Inactive baclofen 10 mg tablet RxNorm: 851260 1/2-1 Tablet(s) Or al QPM as needed for muscle spasm 09/21/2019 01/21/2020 Inactive hydrochlorothiazide 25 mg tablet RxNorm: 851068 TAKE 1 TABLET BY MOUTH EVERY MORNING 09/21/2019 11/26/2019 Inactive amlodipine 5 mg tablet RxNorm: 591184 TAKE 1 TABLET BY MOUTH TW ICE DAILY 09/06/2019 11/27/2019 Inactive magnesium oxide 400 mg (241.3 mg magnesium) tablet RxNorm: 1 25189 TAKE 1/2 TABLET BY MOUTH EVERY DAY 09/06/2019 11/02/2019 Inactive temazepam 15 mg capsule RxNorm: 339008 TAKE 1 CAPSULE B Y MOUTH EVERY DAY AT BEDTIME 09/04/2019 11/05/2019 Inactive baclofen 10 mg tablet RxNorm: 703338 1/2-1 Tablet(s) Or al QPM as needed for muscle spasm 08/25/2019 09/20/2019 Inactive Synthroid 75 mcg tablet RxNorm: 655757 TAKE 1 TABLET BY MOUTH E VERY DAY 08/17/2019 10/15/2019 Inactive Cytomel 5 mcg tablet RxNorm: 771632 TAKE 1 TABLET BY MOUTH EVERY DA Y 08/13/2019 01/21/2020 Inactive potassium chloride ER 20 mEq tablet,extended release RxNorm: 702840 TAKE 1 TABLET BY MOUTH TWICE DAILY 07/06/2019 10/01/2019 Inactive Synthroid 75 mcg tablet RxNorm: 761476 1 Tablet(s) Oral QD Recheck labs in 2 months 06/21/2019 08/16/2019 Inactive Recheck labs in 2 months Synthroid 75 mcg tablet RxNorm: 069082 1 Tablet(s) Oral QD Recheck labs in 2 months 06/21/2019 06/20/2019 Inactive Recheck labs in 2 months amlodipine 5 mg tablet RxNorm: 801537 TAKE 1 TABLET BY MOUTH TW ICE DAILY 06/11/2019 09/05/2019 Inactive Diflucan 100 mg tablet RxNorm: 621254 1 Tablet(s) Oral QD 05/29/2019 06/04/2019 Inactive Zithromax Z-Topher 250 mg tablet RxNorm: 581497 Tablet(s) Oral as directed 05/29/2019 05/28/2019 Inactive Zithromax Z-Topher 250 mg tablet RxNorm: 199814 Tablet(s) Oral as directed 05/29/2019 05/29/2019 Inactive Diflucan 100 mg tablet RxNorm: 819195 1 Tablet(s) Oral QD 05/29/2019 05/28/2019 Inactive cefdinir 300 mg capsule RxNorm: 377801 1 Capsule(s) Oral two ti mes a day 05/19/2019 05/22/2019 Inactive Synthroid 50 mcg tablet RxNorm: 749094 1 TABLET(S) PO QD 05/18/2019 0 06/20/2019 Inactive lab draw in 2 months to recheck thyroid temazepam 15 mg capsule RxNorm: 486088 TAKE 1 CAPSULE B Y MOUTH EVERY DAY AT BEDTIME 05/18/2019 07/16/2019 Inactive Cytomel 5 mcg tablet RxNorm: 875690 1 Tablet(s) Oral QD 05/18/2019 Inactive cefdinir 300 mg capsule RxNorm: 383332 1 Capsule(s) Oral two ti mes a day 05/18/2019 05/18/2019 Inactive magnesium oxide 400 mg (241.3 mg magnesium) tablet RxNorm: 1 72943 1/2 TABLET(S) PO QD 05/10/2019 05/10/2019 Inactive temazepam 15 mg capsule RxNorm: 917650 TAKE 1 CAPSULE B Y MOUTH EVERY DAY AT BEDTIME 05/09/2019 05/16/2019 Inactive magnesium oxide 400 mg (241.3 mg magnesium) tablet RxNorm: 1 17307 1/2 TABLET(S) PO QD 05/02/2019 05/09/2019 Inactive nystatin 100,000 unit/mL oral suspension RxNorm: 893222 5 Milliliter(s) Oral four times a day 04/24/2019 05/07/2019 Inactive cephalexin 500 mg capsule RxNorm: 181243 1 Capsule(s) Oral thre e times a day 04/21/2019 04/27/2019 Inactive cephalexin 500 mg capsule RxNorm: 543581 1 Capsule(s) Oral thre e times a day 04/21/2019 04/20/2019 Inactive potassium chloride ER 20 mEq tablet,extended release RxNorm: 702414 1 Tablet(s) Oral two times a day 04/10/2019 07/05/2019 Inactive Patient r equests 90 days supplyPatient requests 90 days supply nystatin 100,000 unit/mL oral suspension RxNorm: 748392 5 Milliliter(s) Oral four times a day 04/10/2019 04/23/2019 Inactive Diflucan 100 mg tablet RxNorm: 112158 1 Tablet(s) Oral QD 04/10/2019 04/17/2019 Inactive temazepam 15 mg capsule RxNorm: 094109 TAKE 1 CAPSULE B Y MOUTH EVERY DAY AT BEDTIME 04/04/2019 05/03/2019 Inactive Synthroid 50 mcg tablet RxNorm: 732142 1 TABLET(S) PO QD 04/04/2019 1 07/18/2018 Inactive lab draw in 2 months to recheck thyroid magnesium oxide 400 mg (241.3 mg magnesium) tablet RxNorm: 1 98085 1 Tablet(s) Oral QOD 04/04/2019 02/21/2020 Inactive hydrochlorothiazide 25 mg tablet RxNorm: 450462 1 Tablet(s) Oral QA M 03/28/2019 09/20/2019 Inactive amlodipine 5 mg tablet RxNorm: 285719 1 TABLET(S) PO BID 03/15/2019 0 06/12/2019 Inactive magnesium oxide 400 mg (241.3 mg magnesium) tablet RxNorm: 1 32045 1/2 TABLET(S) PO QD 03/06/2019 04/03/2019 Inactive Cytomel 5 mcg tablet RxNorm: 936863 1 Tablet(s) PO QD 02/20/201902/05 Inactive Cytomel 5 mcg tablet RxNorm: 521807 1 Tablet(s) PO QD 02/20/201905/07 Inactive amlodipine 5 mg tablet RxNorm: 245101 1 Tablet(s) PO BID 02/16/2019 0 02/15/2019 Inactive amlodipine 5 mg tablet RxNorm: 529607 1 Tablet(s) PO BID 02/16/2019 1 07/17/2018 Inactive amlodipine 5 mg tablet RxNorm: 888386 1 Tablet(s) PO BID 02/16/2019 0 02/16/2019 Inactive Synthroid 50 mcg tablet RxNorm: 671563 1 TABLET(S) PO QD 02/13/2019 1 Inactive Synthroid 50 mcg tablet RxNorm: 754541 1 TABLET(S) PO QD 01/16/2019 0 02/12/2019 Inactive magnesium oxide 400 mg (241.3 mg magnesium) tablet RxNorm: 1 17387 1/2 Tablet(s) PO QD 01/11/2019 03/05/2019 Inactive temazepam 15 mg capsule RxNorm: 805216 1 Capsule(s) PO QHS 01/04/20 19 04/03/2019 Inactive cefdinir 300 mg capsule RxNorm: 940015 1 Capsule(s) PO BID 12/22/19 19 12/20/2018 Inactive cefdinir 300 mg capsule RxNorm: 270188 1 Capsule(s) PO BID 12/22/19 19 12/24/2018 Inactive hydrochlorothiazide 25 mg tablet RxNorm: 989427 1 Tablet(s) PO QAM 12/19/2018 03/27/2019 Inactive magnesium oxide 400 mg (241.3 mg magnesium) tablet RxNorm: 1 79675 1/2 Tablet(s) PO QD 12/15/2018 01/11/2019 Inactive magnesium oxide 400 mg (241.3 mg magnesium) tablet RxNorm: 1 92130 1/2 Tablet(s) PO QD 12/15/2018 12/14/2018 Inactive Flonase Allergy Relief 50 mcg/actuation nasal spray,suspensi on RxNorm: 0263249 2 SPRAY NASAL QHS 11/09/2018 12/11/2018 Inactive temazepam 15 mg capsule RxNorm: 523617 1 Capsule(s) PO QHS 11/08/1901/02/2019 Inactive Synthroid 50 mcg tablet RxNorm: 163326 1 Tablet(s) PO QD 10/21/2018 0 01/15/2019 Inactive potassium chloride ER 20 mEq tablet,extended release RxNorm: 498948 Tablet(s) 1 TABLET(S) PO BID 10/19/2018 04/09/2019 Inactive Patient reque sts 90 days supplyPatient requests 90 days supply Flonase Allergy Relief 50 mcg/actuation nasal spray,suspensi on RxNorm: 1439200 2 SPRAY NASAL QHS 10/14/2018 12/11/2018 Inactive Patient reques ts 90 days supply Flonase Allergy Relief 50 mcg/actuation nasal spray,suspensi on RxNorm: 8397849 2 [place] NASAL QHS 10/13/2018 10/13/2018 Inactive temazepam 15 mg capsule RxNorm: 055987 1 Capsule(s) PO QHS 10/06/19 19 11/06/2018 Inactive Synthroid 50 mcg tablet RxNorm: 133531 1 Tablet(s) PO QD 10/05/2018 0 10/20/2018 Inactive promethazine 6.25 mg/5 mL oral syrup RxNorm: 346641 5 M illiliter(s) PO Q6H as needed for cough 09/30/2018 12/11/2018 Inactive promethazine-DM 6.25 mg-15 mg/5 mL oral syrup RxNorm: 078422 5 PO Q6H as needed for cough 09/30/2018 12/11/2018 Inactive prednisone 10 mg tablet RxNorm: 697900 1 Tablet(s) PO QD 09/27/2018 0 09/26/2018 Inactive prednisone 10 mg tablet RxNorm: 301739 1 Tablet(s) PO QD 09/27/2018 0 10/03/2018 Inactive cefdinir 300 mg capsule RxNorm: 122229 1 Capsule(s) PO BID 09/24/1909/29/2018 Inactive Macrobid 100 mg capsule RxNorm: 747860 1 Capsule(s) PO BID 09/21/19 19 09/25/2018 Inactive potassium chloride ER 20 mEq tablet,extended release RxNorm: 651200 1 TABLET(S) PO BID 09/14/2018 10/13/2018 Inactive Patient reques ts 90 days supplyPatient requests 90 days supply potassium chloride ER 20 mEq tablet,extended release RxNorm: 463842 1 Tablet(s) PO BID 09/12/2018 09/13/2018 Inactive Patient reques ts 90 days supply Macrobid 100 mg capsule RxNorm: 827078 1 Capsule(s) PO BID 09/06/1909/11/2018 Inactive potassium chloride ER 20 mEq tablet,extended release RxNorm: 964076 1 TABLET(S) PO QD 1 TABLET(S) PO QD 08/26/2018 09/11/2018 Inactive Patien t requests 90 days supply potassium chloride ER 20 mEq tablet,extended release RxNorm: 453146 1 Tablet(s) PO QD 1 TABLET(S) PO QD 08/26/2018 08/25/2018 Inactive potassium chloride ER 20 mEq tablet,extended release RxNorm: 346625 1 TABLET(S) PO QD 08/25/2018 08/25/2018 Inactive Synthroid 50 mcg tablet RxNorm: 646795 1 TABLET(S) PO QD 08/2309/04/2018 Inactive potassium chloride ER 20 mEq tablet,extended release RxNorm: 829290 1 Tablet(s) PO QD 07/28/2018 08/24/2018 Inactive potassium chloride ER 20 mEq tablet,extended release RxNorm: 005567 1 Tablet(s) PO QD 07/28/2018 07/27/2018 Inactive hydrochlorothiazide 25 mg tablet RxNorm: 162631 1 Tablet(s) PO QAM 06/27/2018 12/18/2018 Inactive Synthroid 50 mcg tablet RxNorm: 177892 1 Tablet(s) PO QD DAW1 06/2708/22/2018 Inactive Synthroid 50 mcg tablet RxNorm: 677462 1 TABLET(S) PO QD DAW1 06/1306/26/2018 Inactive Synthroid 75 mcg tablet RxNorm: 595048 1 TABLET(S) PO QD 06/13/2018 0 09/04/2018 Inactive BRAND ONLY mupirocin 2 % topical ointment RxNorm: 053596 1 Applica tion TOP BID to affected area as needed 05/03/2018 09/14/2018 Inactive hydrochlorothiazide 25 mg tablet RxNorm: 281126 1 TABLET(S) PO QD 1 07/02/2017 06/26/2018 Inactive Synthroid 50 mcg tablet RxNorm: 949910 1 Tablet(s) PO QD DAW1 04/1506/12/2018 Inactive Synthroid 50 mcg tablet RxNorm: 369939 1 Tablet(s) PO QD DAW1 04/1504/14/2018 Inactive Synthroid 75 mcg tablet RxNorm: 703174 1 Tablet(s) PO QD 03/15/2018 1 06/14/2017 Inactive BRAND ONLY temazepam 15 mg capsule RxNorm: 098041 1 Capsule(s) PO QHS 03/15/20 18 06/12/2018 Inactive Synthroid 75 mcg tablet RxNorm: 092861 1 Tablet(s) PO QD 01/27/2018 1 Inactive BRAND ONLY Synthroid 75 mcg tablet RxNorm: 647557 1 Tablet(s) PO QD (6 day s per week) 01/17/2018 01/26/2018 Inactive BRAND ONLY Duexis 800 mg-26.6 mg tablet RxNorm: 8391397 1/2 Tablet(s) PO BID 0 10/20/2017 10/22/2017 Inactive Synthroid 75 mcg tablet RxNorm: 152879 1 Tablet(s) PO QD 09/17/2017 1 Inactive BRAND ONLY hydrochlorothiazide 25 mg tablet RxNorm: 370331 1 TABLET(S) PO QD 0 08/30/2017 05/01/2018 Inactive hydrochlorothiazide 25 mg tablet RxNorm: 946716 1 Tablet(s) PO QAM 06/03/2017 09/14/2018 Inactive hydrochlorothiazide 12.5 mg tablet RxNorm: 564124 1 Tablet(s) PO QA M 05/25/2017 06/02/2017 Inactive Synthroid 75 mcg tablet RxNorm: 525846 1 Tablet(s) PO QD 05/14/2017 0 09/17/2017 Inactive BRAND ONLY Restoril 15 mg capsule RxNorm: 805377 TAKE 1 CAPSULE BY MOUTH EVERY NIGHT AT BEDTIME NEEDED 03/05/2017 04/02/2017 Inactive Synthroid 75 mcg tablet RxNorm: 265203 1 Tablet(s) PO QD 01/18/2017 1 07/15/2016 Inactive BRAND ONLY Synthroid 50 mcg tablet RxNorm: 197260 1 Tablet(s) PO QD 01/13/2017 0 01/17/2017 Inactive tizanidine 2 mg tablet RxNorm: 297231 1 Tablet(s) PO QHS for spasm 01/04/2017 03/21/2017 Inactive tizanidine 2 mg tablet RxNorm: 253476 1 Tablet(s) PO QHS for spasm 12/17/2016 01/04/2017 Inactive hydrochlorothiazide 25 mg tablet RxNorm: 501265 1 Tablet(s) PO QD 0 12/04/2016 01/03/2017 Inactive Synthroid 50 mcg tablet RxNorm: 766963 1 Tablet(s) PO QD as directe d 11/18/2016 01/13/2017 Inactive Synthroid 75 mcg tablet RxNorm: 531274 1 Tablet(s) PO QD as directe d 11/18/2016 01/10/2017 Inactive Restoril 15 mg capsule RxNorm: 947093 1 Capsule(s) PO QHS as ne eded for sleep 11/16/2016 03/05/2017 Inactive losartan 50 mg tablet RxNorm: 239923 1 Tablet(s) PO BID 10/19/2016 Inactive prednisone 20 mg tablet RxNorm: 856327 1 Tablet(s) PO QD 10/08/2016 0 10/07/2016 Inactive clindamycin 300 mg capsule RxNorm: 982916 1 Capsule(s) PO TID 10/0810/17/2016 Inactive prednisone 20 mg tablet RxNorm: 398262 1 Tablet(s) PO QD 10/08/2016 0 10/12/2016 Inactive clindamycin 300 mg capsule RxNorm: 019610 1 Capsule(s) PO TID 10/0810/07/2016 Inactive cephalexin 500 mg capsule RxNorm: 811599 1 Capsule(s) PO TID 201610/07/2016 Inactive levothyroxine 75 mcg tablet RxNorm: 374224 TAKE 1 TABLET BY TONE TH EVERY DAY 10/02/2016 10/04/2016 Inactive levothyroxine 75 mcg tablet RxNorm: 874908 1 Tablet(s) PO QD 201610/04/2016 Inactive Restoril 15 mg capsule RxNorm: 463705 1 Capsule(s) PO QHS 08/23/2016 11/15/2016 Inactive levothyroxine 75 mcg tablet RxNorm: 340430 1 Tablet(s) PO QD 201608/19/2016 Inactive levothyroxine 75 mcg tablet RxNorm: 321354 1 Tablet(s) PO QD 201609/09/2016 Inactive levothyroxine 50 mcg capsule RxNorm: 043073 1 Capsule(s) PO QD 0206/201608/19/2016 Inactive hydrochlorothiazide 25 mg tablet RxNorm: 959027 1 Tablet(s) PO QD 0 06/23/2016 12/03/2016 Inactive amoxicillin 500 mg tablet RxNorm: 837936 1 Tablet(s) PO TID 016 06/03/2016 Inactive doxycycline hyclate 100 mg capsule RxNorm: 6444540 1 Capsule(s) PO BID 06/03/2016 06/12/2016 Inactive doxycycline hyclate 100 mg capsule RxNorm: 3174147 1 Capsule(s) PO BID 06/03/2016 06/02/2016 Inactive levothyroxine 75 mcg tablet RxNorm: 118169 1 Tablet(s) PO QD 201505/19/2016 Inactive losartan 50 mg tablet RxNorm: 406873 1 TABLET(S) PO BID 04/07/2016 Inactive metoprolol succinate ER 50 mg tablet,extended release 24 hr RxNorm: 599850 1 TABLET(S) PO QHS AND 1/2 TAB IN THE AM--REPLACES 25MG DOSE 04/03/2016 07/27/2016 Inactive Restoril 15 mg capsule RxNorm: 693963 1 Capsule(s) PO QHS as ne eded for sleep 02/24/2016 05/23/2016 Inactive hydrochlorothiazide 12.5 mg tablet RxNorm: 116337 1 Tab let(s) PO QD replaces 25mg dose 01/13/2016 06/22/2016 Inactive metoprolol succinate ER 50 mg tablet,extended release 24 hr RxNorm: 248584 1 Tablet(s) PO QHS and 1/2 tab in the AM--replaces 25mg dose 10/17/2015 04/02/2016 Inactive amlodipine 2.5 mg tablet RxNorm: 379318 1 Tablet(s) PO QHS 10/08/19 16 10/07/2015 Inactive amlodipine 2.5 mg tablet RxNorm: 395341 1 Tablet(s) PO QHS 10/08/19 16 10/16/2015 Inactive losartan 50 mg tablet RxNorm: 880774 1 TABLET(S) PO BID 09/23/2015 Inactive Medrol (Topher) 4 mg tablets in a dose pack RxNorm: 128541 Take as directed 09/03/2015 10/07/2015 Inactive Lasix 40 mg tablet RxNorm: 007218 1 TABLET(S) PO QD PRN FOR SWELLIN G 08/27/2015 12/04/2015 Inactive Lasix 40 mg tablet RxNorm: 589635 1 Tablet(s) PO QD prn for swellin g 08/01/2015 08/26/2015 Inactive losartan 50 mg tablet RxNorm: 791681 1 Tablet(s) PO BID 06/27/2015 Inactive Zyrtec 10 mg tablet RxNorm: 9778315 1 Tablet(s) PO QD 12/05/2015 Active magnesium oxide 400 mg (241.3 mg magnesium) tablet RxNorm: 31360 1 oral 05/25/2022 Active levothyroxine 50 mcg capsule RxNorm: 490201 1 Capsule(s) PO QD 06/201607/07/2016 Inactive sotalol 80 mg tablet RxNorm: 1744083 1/2 Tablet(s) PO BID 09/05/2018 09/04/2018 Inactive melatonin 1 mg tablet RxNorm: 047562 1 Tablet(s) PO QHS as need ed for sleep 12/05/2015 12/04/2015 Inactive levothyroxine 75 mcg tablet RxNorm: 172350 1 Tablet(s) PO 6 day s a week 07/08/2016 07/07/2016 Inactive Vitamin D3 1,000 unit tablet RxNorm: 872888 1 Tablet(s) PO QD 12/0412/04/2015 Inactive sotalol 80 mg tablet RxNorm: 6442546 1 Tablet(s) PO BID 08/30/2017 Inactive Synthroid 75 mcg tablet RxNorm: 356103 2 Tablet(s) PO M, W, F 09/1509/14/2018 Inactive tizanidine 2 mg tablet RxNorm: 768606 1 Tablet(s) PO QHS for spasm 12/17/2016 12/16/2016 Inactive Nasacort AQ 55 mcg nasal spray aerosol RxNorm: 9122976 [place] ANNELIESE AL as needed 12/12/2018 12/11/2018 Inactive fluocinonide 0.05 % topical gel RxNorm: 264724 TOP as needed on gum s 07/28/2016 07/27/2016 Inactive Flonase Allergy Relief 50 mcg/actuation nasal spray,suspensi on RxNorm: 0422180 2 [place] NASAL QHS 10/13/2018 10/12/2018 Inactive Synthroid 50 mcg tablet RxNorm: 395223 1 Tablet(s) PO Tu, Thur, Sat, Sun 09/20/2018 09/19/2018 Inactive Osteo Bi-Flex (5-Loxin) 1,500 mg-400 unit-100 mg tablet RxNo rm: 1 Tablet(s) PO QD 12/05/2015 12/04/2015 Inactive hydrochlorothiazide 25 mg tablet RxNorm: 712523 1/2 Tablet(s) PO QA M 01/13/2016 01/12/2016 Inactive metoprolol succinate ER 25 mg tablet,extended release 24 hr RxNorm: 165617 1 Tablet(s) PO QD 10/17/2015 10/16/2015 Inactive promethazine-DM 6.25 mg-15 mg/5 mL oral syrup RxNorm: 917393 5 PO Q6H as needed for cough 09/30/2018 09/29/2018 Inactive Synthroid 50 mcg tablet RxNorm: 787489 1 Tablet(s) PO QD 10/05/2018 0 10/04/2018 Inactive mupirocin 2 % topical ointment RxNorm: 251731 1 Applica tion TOP BID to affected area as needed 05/03/2018 05/02/2018 Inactive hydrochlorothiazide 25 mg tablet RxNorm: 240509 1 Tablet(s) PO QOD 01/13/2016 01/12/2016 Inactive Vitamin D3 1000 units Capsule RxNorm: 1 Capsule(s) PO QD 9 12/11/2018 Inactive levothyroxine 75 mcg tablet RxNorm: 193076 1 Tablet(s) PO QD 201505/07/2016 Inactive potassium chloride ER 10 mEq capsule,extended release RxNorm : 721357 1 Capsule(s) PO QD 12/05/2015 12/04/2015 Inactive aspirin 81 mg tablet RxNorm: 962552 1 Tablet(s) PO QHS 01/22/2020 Inactive Claritin 10 mg tablet RxNorm: 560959 1 Tablet(s) PO QD 12/05/2015 Inactive Vitamin B12 1000mcg Tablet RxNorm: 1/2 Tablet(s) PO QD 12/12/2018 12/11/2018 Inactive temazepam 15 mg capsule RxNorm: 717807 1 Capsule(s) PO QHS 03/15/20 18 03/14/2018 Inactive hydrochlorothiazide 25 mg tablet RxNorm: 549908 1 Tablet(s) PO QAM 12/05/2015 12/04/2015 Inactive sotalol 80 mg tablet RxNorm: 9116760 1/2 Tablet(s) PO QD 09/22/2018 0 09/21/2018 Inactive mupirocin 2 % topical ointment RxNorm: 862395 TOP as needed 017 08/24/2016 Inactive hydrochlorothiazide 25 mg tablet RxNorm: 512379 1/2 Tablet(s) PO QA M 05/25/2017 05/24/2017 Inactive amlodipine 10 mg tablet RxNorm: 288718 1 Tablet(s) PO QD 02/16/2019 0 02/15/2019 Inactive Citracal + D Slow Release 600 mg calcium-500 unit tablet,ext .release RxNorm: 2 Tablet(s) PO QD 02/16/2019 02/15/2019 Inactive triamcinolone acetonide 0.1 % topical cream RxNorm: 9179451 TOP as needed 12/12/2018 12/11/2018 Inactive Restoril 15 mg capsule RxNorm: 944741 1 Capsule(s) PO QHS 02/24/2016 02/23/2016 Inactive hydrochlorothiazide 25 mg tablet RxNorm: 151989 1/2 Tablet(s) PO QO D 01/13/2016 01/12/2016 Inactive promethazine 6.25 mg/5 mL oral syrup RxNorm: 719141 5 M illiliter(s) PO Q6H as needed for cough 09/30/2018 09/29/2018 Inactive Centrum Silver Women 8 mg iron-400 mcg-300 mcg tablet RxNorm : 1 Tablet(s) PO QD 08/30/2017 08/29/2017 Inactive losartan 50 mg tablet RxNorm: 189897 1 Tablet(s) PO QHS 01/04/2017 Inactive levothyroxine 75 mcg tablet RxNorm: 055258 1 Tablet(s) PO 6 day s a week 10/05/2016 10/04/2016 Inactive losartan 50 mg tablet RxNorm: 735541 2 Tablet(s) PO QD 06/27/2015 Inactive Culturelle 10 billion cell capsule RxNorm: 875986 1-2 Capsule(s ) PO QD 05/10/2019 05/09/2019 Inactive Culturelle 10 billion cell capsule RxNorm: 873736 1 Capsule(s) PO Q D 08/30/2017 08/29/2017 Inactive Synthroid 75 mcg tablet RxNorm: 715787 1 Tablet(s) PO MW 01/18/2017 01/17/2017 Inactive [...] Code Item Item Code Result Date S [facility] Location COMPLETE BLOOD COUNT [id number] WBC 6.5 10e9/L 09/27/19 19 Unknown COMPLETE BLOOD COUNT [id number] RBC 4.22 10e12/L 2018 Unknown COMPLETE BLOOD COUNT [id number] HEMOGLOBIN 13.3 g/dL 09/27/19 19 Unknown COMPLETE BLOOD COUNT [id number] HEMATOCRIT 38.7 % 09/27/19 19 Unknown COMPLETE BLOOD COUNT [id number] MCV 91.7 fL 9 Unknown COMPLETE BLOOD COUNT [id number] MCH 31.5 pg 9 Unknown COMPLETE BLOOD COUNT [id number] MCHC 34.4 g/dL 9 Unknown COMPLETE BLOOD COUNT [id number] PLATELET COUNT 326 10e9/L Unknown COMPLETE BLOOD COUNT [id number] Mean Plt Volume 8.9 fL Unknown COMPLETE BLOOD COUNT 4137000 Neut Auto 69.0 % 9 Unknown COMPLETE BLOOD COUNT [id number] Lymph Auto 16.5 % 09/27/19 19 Unknown COMPLETE BLOOD COUNT [id number] [place] Auto 8.3 % 9 Unknown COMPLETE BLOOD COUNT [id number] RDW 12.2 % 9 Unknown COMPLETE BLOOD COUNT [id number] Eos Auto 5.9 % 9 Unknown COMPLETE BLOOD COUNT [id number] Baso Auto 0.3 % 9 Unknown COMPLETE BLOOD COUNT [id number] Neutrophil Abs 4.48 10e9/L Unknown COMPLETE BLOOD COUNT [id number] Lymphocyte Abs 1.07 10e9/L Unknown COMPLETE BLOOD COUNT [id number] Monocyte Abs 0.54 10e9/L 09/06 Unknown COMPLETE BLOOD COUNT [id number] Eosinophil Abs 0.38 10e9/L Unknown COMPLETE BLOOD COUNT [id number] RDW-SD 39.8 fL 9 Unknown COMPLETE BLOOD COUNT [id number] Basophil Abs 0.02 10e9/L 09/06 Unknown GFR CALC [id number] GFR Non Afr Amr >60 mL/min 12/12/2015 Un known GFR CALC [id number] GFR Afr Amr >60 mL/min 12/12/2015 [place] [address] Glucose 100 mg/dL 12/11 [place] [address] CREATININE 0.78 mg/dL 12/2015 [place] [address] BUN 14 mg/dL 12/11 [place] [address] SODIUM 132 mmol/L 12/2015 [place] [address] POTASSIUM 3.6 mmol/L 12/2015 [place] [address] CHLORIDE 97 mmol/L 12/11 [place] [address] Bicarbonate 28 mmol/L 12/2015 [place] [address] AGAP 7 mmol/L 12/11 [place] [address] CALCIUM 9.3 mg/dL 12/11 [place] [address] Glucose 92 mg/dL 12/04 [place] [address] CREATININE 0.76 mg/dL [place] [address] BUN 8 mg/dL 12/04 [place] [address] SODIUM 133 mmol/L 11/07 [place] [address] POTASSIUM 4.1 mmol/L 11/07 [place] [address] CHLORIDE 97 mmol/L 12/04 [place] [address] Bicarbonate 27 mmol/L [place] [address] AGAP 9 mmol/L 12/04 [place] [address] CALCIUM 9.8 mg/dL 12/04 Unknown GFR CALC [id number] GFR Afr Amr >60 mL/min 12/05/2015 Unknow n COMPREHENSIVE METABOLIC 23608 AST 36 U/L 2015 Unknown COMPREHENSIVE METABOLIC 16902 ALT 41 U/L 2015 Unknown COMPREHENSIVE METABOLIC 10197 BUN 11 mg/dL 2015 Unknown COMPREHENSIVE METABOLIC 59749 ALBUMIN 4.2 g/dL 2015 Unknown COMPREHENSIVE METABOLIC 24400 CHLORIDE 93 mmol/L 2015 Unknown COMPREHENSIVE METABOLIC 40425 Bili Total 1.0 mg/dL 11/24 Unknown COMPREHENSIVE METABOLIC 73485 ALK PHOS 79 U/L 2015 Unknown COMPREHENSIVE METABOLIC 14222 SODIUM 128 mmol/L 11/24 Unknown COMPREHENSIVE METABOLIC 24850 CREATININE 0.65 mg/dL 11/06 Unknown COMPREHENSIVE METABOLIC 11414 CALCIUM 9.4 mg/dL 2015 Unknown COMPREHENSIVE METABOLIC 12099 POTASSIUM 3.7 mmol/L 11/24 Unknown COMPREHENSIVE METABOLIC 44150 Total Protein 6.9 g/dL Unknown COMPREHENSIVE METABOLIC 20740 Glucose 101 mg/dL 2015 Unknown COMPREHENSIVE METABOLIC 11574 Bicarbonate 27 mmol/L 11/06 Unknown COMPREHENSIVE METABOLIC 98864 AGAP 8 mmol/L 2015 Unknown THYROID STIMULATING HORMONE 98959 TSH 2.983 uIU/mL 11/25/2015 Unknown COMPLETE BLOOD COUNT [id number] WBC 9.0 10e9/L 11/25/19 16 Unknown COMPLETE BLOOD COUNT [id number] RBC 3.98 10e12/L 2015 Unknown COMPLETE BLOOD COUNT [id number] HEMOGLOBIN 12.8 g/dL 11/25/19 16 Unknown COMPLETE BLOOD COUNT [id number] HEMATOCRIT 36.1 % 11/25/19 16 Unknown COMPLETE BLOOD COUNT 7478097 MCV 90.7 fL 6 Unknown COMPLETE BLOOD COUNT [id number] MCH 32.2 pg 6 Unknown COMPLETE BLOOD COUNT 4600898 MCHC 35.5 g/dL 6 Unknown COMPLETE BLOOD COUNT 4241538 PLATELET COUNT 291 10e9/L Unknown COMPLETE BLOOD COUNT 7381022 Mean Plt Volume 8.8 fL Unknown COMPLETE BLOOD COUNT 0396240 Neut Auto 72.2 % 6 Unknown COMPLETE BLOOD COUNT 8775708 Lymph Auto 19.4 % 11/25/19 16 Unknown COMPLETE BLOOD COUNT 5326764 [place] Auto 7.4 % 6 Unknown COMPLETE BLOOD COUNT 7695756 RDW 11.8 % 6 Unknown COMPLETE BLOOD COUNT 4376714 Eos Auto 0.7 % 6 Unknown COMPLETE BLOOD COUNT 6639338 Baso Auto 0.3 % 6 Unknown COMPLETE BLOOD COUNT 8551762 Neutrophil Abs 6.50 10e9/L Unknown COMPLETE BLOOD COUNT [id number] Lymphoctye Abs 1.75 10e9/L Unknown COMPLETE BLOOD COUNT [id number] Monocyte Abs 0.67 10e9/L 11/06 Unknown COMPLETE BLOOD COUNT 7060129 Eosinophil Abs 0.06 10e9/L Unknown COMPLETE BLOOD COUNT 0168475 RDW-SD 38.1 fL 6 Unknown COMPLETE BLOOD COUNT 3306187 Basophil Abs 0.03 10e9/L 11/06 Unknown GFR CALC 5142978 GFR Non Afr Amr >60 mL/min 11/25/2015 Un known GFR CALC 0353077 GFR Afr Amr >60 mL/min 11/25/2015 Unknow n Procedures Procedure Codes Date SARSCOV CORONAVIRUS AG IA CPT-4: 29371 01/27/2022 CEFTRIAXONE SODIUM INJECTION CPT-4: J0696 01/27/2022 THER/PROPH/DIAG INJ SC/IM CPT-4: 91828 01/27/2022 URINALYSIS NONAUTO W/O SCOPE CPT-4: 32663 05/12/2021 RML URINE CULTURE/ COLONY COUNT CPT-4: 18745 05/12/20 FLU VACC PRSV FREE INC ANTIG 65 AND OLDER CPT-4: 85290 02/27/2021 ADMIN INFLUENZA VIRUS VAC CPT-4: G0008 02/27/2021 FLU VACC PRSV FREE INC ANTIG 65 AND OLDER CPT-4: 39741 02/27/2021 RML URINE CULTURE/ COLONY COUNT CPT-4: 00930 11/12/19 21 URINALYSIS NONAUTO W/O SCOPE CPT-4: 54408 11/11/2020 DESTRUCT PREMALG LESION (Cryosurgery) CPT-4: 26781 RML URINE CULTURE/ COLONY COUNT CPT-4: 24716 02/20/20 20 URINALYSIS NONAUTO W/O SCOPE CPT-4: 24800 02/13/2020 RML URINE CULTURE/ COLONY COUNT CPT-4: 87443 02/13/20 20 CEFTRIAXONE SODIUM INJECTION CPT-4: J0696 02/13/2020 THER/PROPH/DIAG INJ SC/IM CPT-4: 10819 02/13/2020 URINALYSIS NONAUTO W/O SCOPE CPT-4: 37505 11/09/2019 RML URINE CULTURE/ COLONY COUNT CPT-4: 02372 11/09/19 20 CEFTRIAXONE SODIUM INJECTION CPT-4: J0696 05/18/2019 THER/PROPH/DIAG INJ SC/IM CPT-4: 17348 05/18/2019 CEFTRIAXONE SODIUM INJECTION CPT-4: J0696 05/17/2019 THER/PROPH/DIAG INJ SC/IM CPT-4: 62889 05/17/2019 RML URINE CULTURE/ COLONY COUNT CPT-4: 57059 05/08/20 19 THROAT CULTURE CPT-4: 03881 05/08/2019 URINALYSIS NONAUTO W/O SCOPE CPT-4: 63711 04/21/2019 RML URINE CULTURE/ COLONY COUNT CPT-4: 94262 04/21/20 19 CEFTRIAXONE SODIUM INJECTION CPT-4: J0696 04/21/2019 THER/PROPH/DIAG INJ SC/IM CPT-4: 47293 04/21/2019 FLU VACC PRSV FREE INC ANTIG 65 AND OLDER CPT-4: 94872 03/02/2019 FLU VACC PRSV FREE INC ANTIG 65 AND OLDER CPT-4: 82982 03/02/2019 ADMIN INFLUENZA VIRUS VAC CPT-4: G0008 03/02/2019 URINALYSIS NONAUTO W/O SCOPE CPT-4: 70635 02/16/2019 Removal impacted cerumen using irrigation/lavage, unilateral CPT-4: 25807 12/14/2018 UA W/MICR CPT-4: 25039 10/05/2018 ROUTINE VENIPUNCTURE CPT-4: 01756 09/26/2018 RML COMPLETE CBC W/AUTO DIFF WBC CPT-4: 74137 019 CEFTRIAXONE SODIUM INJECTION CPT-4: J0696 09/22/2018 THER/PROPH/DIAG INJ SC/IM CPT-4: 61207 09/22/2018 INFLUENZA ASSAY W/OPTIC CPT-4: 51591 09/22/2018 URINALYSIS NONAUTO W/O SCOPE CPT-4: 27233 09/20/2018 CEFTRIAXONE SODIUM INJECTION CPT-4: J0696 09/20/2018 THER/PROPH/DIAG INJ SC/IM CPT-4: 63288 09/20/2018 RML URINE CULTURE/ COLONY COUNT CPT-4: 78588 09/21/19 19 RML URINE CULTURE/ COLONY COUNT CPT-4: 06315 09/15/19 19 URINALYSIS NONAUTO W/O SCOPE CPT-4: 88459 09/05/2018 RML URINE CULTURE/ COLONY COUNT CPT-4: 52485 09/06/19 19 URINALYSIS NONAUTO W/O SCOPE CPT-4: 95799 04/20/2018 RML URINE CULTURE/ COLONY COUNT CPT-4: 54888 04/20/20 18 CERUM REMOVAL CPT-4: 71266 03/18/2018 FLU VACC PRSV FREE INC ANTIG 65 AND OLDER CPT-4: 47036 03/03/2018 ADMIN INFLUENZA VIRUS VAC CPT-4: G0008 03/03/2018 PRESCRIP TRANSMIT VIA ERX SY CPT-4: G8553 05/25/2017 FLU VACC PRSV FREE INC ANTIG 65 AND OLDER CPT-4: 85325 03/08/2017 ADMIN INFLUENZA VIRUS VAC CPT-4: G0008 03/08/2017 PRESCRIP TRANSMIT VIA ERX SY CPT-4: G8553 01/18/2017 PRESCRIP TRANSMIT VIA ERX SY CPT-4: G8553 11/18/2016 RML URINE CULTURE/ COLONY COUNT CPT-4: 04735 10/27/19 17 URINALYSIS NONAUTO W/O SCOPE CPT-4: 21808 10/26/2016 PRESCRIP TRANSMIT VIA ERX SY CPT-4: G8553 10/08/2016 PRESCRIP TRANSMIT VIA ERX SY CPT-4: G8553 10/05/2016 PRESCRIP TRANSMIT VIA ERX SY CPT-4: G8553 06/23/2016 PRESCRIP TRANSMIT VIA ERX SY CPT-4: G8553 06/03/2016 INFLUENZA ASSAY W/OPTIC CPT-4: 96979 05/26/2016 FLU VACC PRSV FREE INC ANTIG 65 AND OLDER CPT-4: 77542 03/19/2016 ADMIN INFLUENZA VIRUS VAC CPT-4: G0008 03/19/2016 PNEUMOCOCCAL VACC 13 CARLIE IM CPT-4: 19960 01/13/2016 ADMIN PNEUMOCOCCAL VACCINE CPT-4: G0009 01/13/2016 PRESCRIP TRANSMIT VIA ERX SY CPT-4: G8553 01/13/2016 URINALYSIS NONAUTO W/O SCOPE CPT-4: 38130 11/27/2015 RML URINE CULTURE/ COLONY COUNT CPT-4: 68576 11/27/19 16 PRESCRIP TRANSMIT VIA ERX SY [...] 97.9 (F) We ight: 141 lbs Code: 79640-6 08/25/2022 Blood Pressure 1: 124/78 Code: 8480-6 Heart Rate 1: 75 bpm Respiratory Rate: 20 bpm SpO2: 98% Temperature: 36.4 (C) / 97.5 (F) We ight: 134 lbs Code: 39044-9 08/11/2022 Blood Pressure 1: 136/74 Code: 8480-6 Heart Rate 1: 69 bpm Respiratory Rate: 18 bpm SpO2: 97% Temperature: 36.7 (C) / 98.0 (F) We ight: 134 lbs Code: 17504-9 07/28/2022 Blood Pressure 1: 126/74 Code: 8480-6 Heart Rate 1: 74 bpm Respiratory Rate: 20 bpm SpO2: 97% Temperature: 36.4 (C) / 97.5 (F) We ight: 135 lbs Code: 00908-1 07/14/2022 Blood Pressure 1: 130/76 Code: 8480-6 Heart Rate 1: 51 bpm SpO2: 100% Temperature: 36.3 (C) / 97.3 (F) Weight: 130 lbs Code : 26806-8 06/23/2022 Blood Pressure 1: 140/80 Code: 8480-6 Heart Rate 1: 58 bpm Respiratory Rate: 20 bpm SpO2: 98% Temperature: 36.3 (C) / 97.3 (F) We ight: 135 lbs Code: 30887-7 05/25/2022 Blood Pressure 1: 161/82 Code: 8480-6 BMI: 24.3 Code: 36144-0 Heart Rate 1: 72 bpm Height: 5'3" Code: 8302-2 SpO2: 97% Temperature: 3 6.3 (C) / 97.3 (F) Weight: 137 lbs Code: 75534-6 03/19/2022 Blood Pressure 1: 140/82 Code: 8480-6 BMI: 23.2 Code: 48083-7 Heart Rate 1: 56 bpm Height: 5'3" Code: 8302-2 SpO2: 92% Temperature: 3 6.8 (C) / 98.2 (F) Weight: 131 lbs Code: 67506-3 02/16/2022 Blood Pressure 1: 154/82 Code: 8480-6 BMI: 23.6 Code: 95984-9 Heart Rate 1: 64 bpm Height: 5'3" Code: 8302-2 Respiratory Rate: 20 bpm SpO2: 96% Temperature: 36.8 (C) / 98.3 (F) Weight: 133 lbs Code: 95206-1 2022 Blood Pressure 1: 140/74 Code: 8480-6 BMI: 22.5 Code: 20751-3 Heart Rate 1: 54 bpm Height: 5'3" Code: 8302-2 Respiratory Rate: 18 bpm SpO2: 96% Temperature: 36.8 (C) / 98.2 (F) Weight: 127 lbs Code: 83183-1 01/27/2022 Blood Pressure 1: 144/80 Code: 8480-6 Heart Rate 1: 84 bpm Respiratory Rate: 22 bpm SpO2: 96% Temperature: 36.7 (C) / 98.0 (F) We ight: 134 lbs Code: 62985-9 10/28/2021 Blood Pressure 1: 152/82 Code: 8480-6 BMI: 22.8 Code: 99599-6 Heart Rate 1: 68 bpm Height: 5'4" Code: 8302-2 Respiratory Rate: 20 bpm SpO2: 98% Temperature: 36.8 (C) / 98.2 (F) Weight: 133 lbs Code: 69289-9 09/23/2021 Blood Pressure 1: 154/78 Code: 8480-6 Heart Rate 1: 66 bpm Respiratory Rate: 18 bpm SpO2: 97% Temperature: 36.2 (C) / 97.1 (F) We ight: 130 lbs Code: 88839-8 08/21/2021 Blood Pressure 1: 166/78 Code: 8480-6 Heart Rate 1: 76 bpm Respiratory Rate: 20 bpm SpO2: 98% Temperature: 36.5 (C) / 97.7 (F) We ight: 134 lbs Code: 06537-3 07/30/2021 Blood Pressure 1: 146/68 Code: 8480-6 Heart Rate 1: 76 bpm Respiratory Rate: 20 bpm SpO2: 98% Temperature: 36.7 (C) / 98.1 (F) We ight: 135 lbs Code: 73073-4 06/19/2021 Blood Pressure 1: 96/50 Code: 8480-6 Heart Rate 1: 72 bpm Respiratory Rate: 20 bpm SpO2: 97% Temperature: 36.8 (C) / 98.3 (F) Weight: 132 lbs Code: 38927-8 05/08/2021 Blood Pressure 1: 132/74 Code: 8480-6 Heart Rate 1: 72 bpm Respiratory Rate: 20 bpm SpO2: 99% Temperature: 36.8 (C) / 98.2 (F) We ight: 132 lbs Code: 71242-3 04/28/2021 Blood Pressure 1: 132/62 Code: 8480-6 Heart Rate 1: 88 bpm Respiratory Rate: 20 bpm SpO2: 98% Temperature: 36.6 (C) / 97.9 (F) We ight: 141 lbs Code: 30358-9 03/19/2021 Blood Pressure 1: 140/67 Code: 8480-6 Heart Rate 1: 71 bpm Respiratory Rate: 15 bpm SpO2: 99% Temperature: 36.3 (C) / 97.3 (F) We ight: 142 lbs Code: 10563-1 02/06/2021 Blood Pressure 1: 152/74 Code: 8480-6 Heart Rate 1: 80 bpm Respiratory Rate: 20 bpm SpO2: 96% Temperature: 36.7 (C) / 98.0 (F) We ight: 138 lbs Code: 87919-3 12/20/2020 Blood Pressure 1: 112/63 Code: 8480-6 Heart Rate 1: 80 bpm Respiratory Rate: 16 bpm SpO2: 99% Temperature: 36.4 (C) / 97.6 (F) We ight: 136 lbs Code: 57694-6 12/11/2020 Blood Pressure 1: 123/64 Code: 8480-6 BMI: 23.5 Code: 18128-3 Heart Rate 1: 68 bpm Height: 5'4" Code: 8302-2 Respiratory Rate: 15 bpm SpO2: 98% Temperature: 36.2 (C) / 97.2 (F) Weight: 137 lbs Code: 34428-6 11/11/2020 Blood Pressure 1: 154/82 Code: 8480-6 Heart Rate 1: 76 bpm SpO2: 99% Temperature: 36.9 (C) / 98.5 (F) Weight: 136 lbs Code: 81026-4 09/05/2020 Blood Pressure 1: 150/66 Code: 8480-6 Heart Rate 1: 80 bpm Respiratory Rate: 20 bpm SpO2: 99% Temperature: 37.0 (C) / 98.6 (F) We ight: 132 lbs Code: 01764-7 07/29/2020 Blood Pressure 1: 152/72 Code: 8480-6 Heart Rate 1: 84 bpm Respiratory Rate: 20 bpm SpO2: 97% Temperature: 36.8 (C) / 98.2 (F) We ight: 133 lbs Code: 65710-3 06/24/2020 Blood Pressure 1: 112/68 Code: 8480-6 Heart Rate 1: 72 bpm Respiratory Rate: 20 bpm SpO2: 98% Temperature: 36.8 (C) / 98.2 (F) We ight: 130 lbs Code: 40441-3 06/21/2020 Blood Pressure 1: 129/78 Code: 8480-6 He art Rate 1: 81 bpm 02/29/2020 Blood Pressure 1: 136/70 Code: 8480-6 Heart Rate 1: 76 bpm Respiratory Rate: 20 bpm SpO2: 98% Temperature: 36.4 (C) / 97.5 (F) We ight: 130 lbs Code: 81634-7 02/22/2020 Blood Pressure 1: 142/67 Code: 8480-6 Heart Rate 1: 64 bpm Respiratory Rate: 16 bpm SpO2: 98% Temperature: 36.5 (C) / 97.7 (F) We ight: 128 lbs Code: 30084-7 02/13/2020 Blood Pressure 1: 124/80 Code: 8480-6 Heart Rate 1: 61 bpm Respiratory Rate: 15 bpm SpO2: 97% Temperature: 36.2 (C) / 97.1 (F) We ight: Code: 67581-5 2020 Blood Pressure 1: 124/60 Code: 8480-6 Heart Rate 1: 92 bpm Respiratory Rate: 20 bpm SpO2: 97% Temperature: 36.4 (C) / 97.5 (F) We ight: 129 lbs Code: 74892-9 01/22/2020 Blood Pressure 1: 134/54 Code: 8480-6 Heart Rate 1: 72 bpm Respiratory Rate: 20 bpm SpO2: 97% Temperature: 37.1 (C) / 98.7 (F) We ight: 128 lbs Code: 20352-0 12/26/2019 Blood Pressure 1: 124/74 Code: 8480-6 Heart Rate 1: 64 bpm Respiratory Rate: 20 bpm SpO2: 98% Temperature: 37.0 (C) / 98.6 (F) We ight: 126 lbs Code: 75182-2 11/27/2019 Blood Pressure 1: 134/73 Code: 8480-6 Heart Rate 1: 116 bpm Respiratory Rate: 17 bpm SpO2: 97% Temperature: 36.7 (C) / 98.0 (F) We ight: 134 lbs Code: 55787-7 11/09/2019 Blood Pressure 1: 126/68 Code: 8480-6 Heart Rate 1: 92 bpm Respiratory Rate: 20 bpm SpO2: 97% Temperature: 37.2 (C) / 98.9 (F) We ight: 135 lbs Code: 56818-8 10/10/2019 Blood Pressure 1: 117/65 Code: 8480-6 Heart Rate 1: 66 bpm Respiratory Rate: 16 bpm SpO2: 99% Temperature: 36.7 (C) / 98.0 (F) We ight: 130 lbs Code: 30751-7 07/13/2019 Blood Pressure 1: 144/70 Code: 8480-6 BMI: 23.0 Code: 69635-4 Heart Rate 1: 92 bpm Height: 5'4" Code: 8302-2 Respiratory Rate: 20 bpm SpO2: 98% Temperature: 36.8 (C) / 98.2 (F) Weight: 133 lbs Code: 27326-2 05/18/2019 Blood Pressure 1: 122/60 Code: 8480-6 Heart Rate 1: 92 bpm Respiratory Rate: 20 bpm SpO2: 97% Temperature: 37.0 (C) / 98.6 (F) 05/17/2019 Blood Pressure 1: 122/74 Code: 8480-6 Heart Rate 1: 84 bpm Respiratory Rate: 20 bpm SpO2: 98% Temperature: 37.2 (C) / 99.0 (F) We ight: 130 lbs Code: 30203-6 04/24/2019 Blood Pressure 1: 124/64 Code: 8480-6 Heart Rate 1: 93 bpm SpO2: 99% Temperature: 36.8 (C) / 98.3 (F) Weight: 134 lbs Code: 12220-6 04/10/2019 Blood Pressure 1: 128/68 Code: 8480-6 Heart Rate 1: 73 bpm SpO2: 99% Temperature: 37.2 (C) / 98.9 (F) Weight: 134 lbs Code: 22522-5 02/16/2019 Blood Pressure 1: 128/64 Code: 8480-6 Heart Rate 1: 72 bpm Respiratory Rate: 20 bpm SpO2: 97% Temperature: 36.8 (C) / 98.2 (F) We ight: 129 lbs Code: 55256-9 12/20/2018 Blood Pressure 1: 152/70 Code: 8480-6 Heart Rate 1: 87 bpm Respiratory Rate: 20 bpm SpO2: 98% Temperature: 36.9 (C) / 98.5 (F) We ight: 127 lbs Code: 53198-1 12/14/2018 Blood Pressure 1: 122/68 Code: 8480-6 Heart Rate 1: 80 bpm Respiratory Rate: 18 bpm SpO2: 96% Temperature: 36.8 (C) / 98.2 (F) 12/12/2018 Blood Pressure 1: 140/68 Code: 8480-6 Heart Rate 1: 75 bpm Respiratory Rate: 18 bpm SpO2: 97% Temperature: 36.2 (C) / 97.1 (F) We ight: 127 lbs Code: 89666-2 10/19/2018 Blood Pressure 1: 126/64 Code: 8480-6 Heart Rate 1: 88 bpm Respiratory Rate: 20 bpm SpO2: 96% Temperature: 37.1 (C) / 98.8 (F) We ight: 123 lbs Code: 55400-1 10/13/2018 Blood Pressure 1: 132/62 Code: 8480-6 He art Rate 1: 86 bpm 10/05/2018 Blood Pressure 1: 114/58 Code: 8480-6 Heart Rate 1: 72 bpm SpO2: 98% Temperature: 36.9 (C) / 98.5 (F) Weight: 120 lbs Code: 13877-2 09/28/2018 Blood Pressure 1: 126/64 Code: 8480-6 Heart Rate 1: 76 bpm Respiratory Rate: 20 bpm SpO2: 97% Temperature: 37.2 (C) / 98.9 (F) 09/26/2018 Blood Pressure 1: 132/66 Code: 8480-6 Heart Rate 1: 79 bpm Respiratory Rate: 20 bpm SpO2: 97% Temperature: 37.1 (C) / 98.7 (F) We ight: 119 lbs Code: 57106-9 09/23/2018 Blood Pressure 1: 112/64 Code: 8480-6 Heart Rate 1: 85 bpm Respiratory Rate: 20 bpm SpO2: 95% Temperature: 36.9 (C) / 98.5 (F) We ight: 119 lbs 8 oz Code: 01981-8 09/22/2018 Blood Pressure 1: 116/58 Code: 8480-6 Heart Rate 1: 88 bpm Respiratory Rate: 20 bpm SpO2: 96% Temperature: 37.9 (C) / 100. 2 (F) 09/20/2018 Blood Pressure 1: 136/70 Code: 8480-6 Heart Rate 1: 109 bpm Respiratory Rate: 20 bpm SpO2: 98% Temperature: 37.0 (C) / 98.6 (F) We ight: 122 lbs Code: 52008-2 09/15/2018 Blood Pressure 1: 134/62 Code: 8480-6 Heart Rate 1: 68 bpm Respiratory Rate: 20 bpm SpO2: 97% Temperature: 36.8 (C) / 98.2 (F) We ight: 124 lbs Code: 19996-2 09/08/2018 Blood Pressure 1: 132/62 Code: 8480-6 Heart Rate 1: 83 bpm Respiratory Rate: 18 bpm SpO2: 94% Temperature: 36.9 (C) / 98.4 (F) We ight: 123 lbs Code: 67852-7 09/05/2018 Blood Pressure 1: 142/68 Code: 8480-6 Heart Rate 1: 70 bpm Respiratory Rate: 18 bpm SpO2: 98% Temperature: 37.0 (C) / 98.6 (F) We ight: 123 lbs Code: 22465-4 03/18/2018 Blood Pressure 1: 132/62 Code: 8480-6 Heart Rate 1: 71 bpm Respiratory Rate: 18 bpm SpO2: 95% Temperature: 36.7 (C) / 98.1 (F) We ight: 126 lbs Code: 98295-8 03/03/2018 Blood Pressure 1: 148/60 Code: 8480-6 BMI: 22.5 Code: 37500-2 Heart Rate 1: 72 bpm Height: 5'4" Code: 8302-2 Respiratory Rate: 20 bpm SpO2: 96% Temperature: 36.9 (C) / 98.4 (F) Weight: 130 lbs Code: 71818-6 02/16/2018 Blood Pressure 1: 154/70 Code: 8480-6 BMI: 21.8 Code: 95404-4 Heart Rate 1: 72 bpm Height: 5'4" Code: 8302-2 Respiratory Rate: 20 bpm SpO2: 97% Temperature: 36.9 (C) / 98.5 (F) Weight: 126 lbs Code: 40551-1 01/26/2018 Blood Pressure 1: 126/78 Code: 8480-6 BMI: 21.8 Code: 83112-8 Heart Rate 1: 80 bpm Height: 5'4" Code: 8302-2 Respiratory Rate: 20 bpm SpO2: 97% Temperature: 36.6 (C) / 97.8 (F) Weight: 126 lbs Code: 97559-2 11/30/2017 Blood Pressure 1: 168/78 Code: 8480-6 BMI: 22.1 Code: 37284-0 Heart Rate 1: 64 bpm Height: 5'4" Code: 8302-2 Respiratory Rate: 20 bpm SpO2: 96% Temperature: 37.0 (C) / 98.6 (F) Weight: 128 lbs Code: 63758-4 10/20/2017 Blood Pressure 1: 146/70 Code: 8480-6 BMI: 22.1 Code: 31105-5 Heart Rate 1: 72 bpm Height: 5'4" Code: 8302-2 Respiratory Rate: 20 bpm SpO2: 97% Temperature: 36.7 (C) / 98.1 (F) Weight: 128 lbs Code: 47232-1 08/30/2017 Blood Pressure 1: 134/68 Code: 8480-6 BMI: 22.5 Code: 09421-3 Heart Rate 1: 72 bpm Height: 5'4" Code: 8302-2 Respiratory Rate: 20 bpm Temperatu re: 36.9 (C) / 98.4 (F) Weight: 130 lbs Code: 15152-1 05/25/2017 Blood Pressure 1: 144/60 Code: 8480-6 BMI: 22.3 Code: 73393-5 Heart Rate 1: 64 bpm Height: 5'4" Code: 8302-2 Respiratory Rate: 20 bpm SpO2: 95% Temperature: 36.8 (C) / 98.2 (F) Weight: 129 lbs Code: 46038-8 03/22/2017 Blood Pressure 1: 124/70 Code: 8480-6 BMI: 21.4 Code: 25988-3 Heart Rate 1: 64 bpm Height: 5'4" Code: 8302-2 Respiratory Rate: 20 bpm Temperatu re: 36.9 (C) / 98.4 (F) Weight: 124 lbs Code: 02980-3 03/08/2017 Blood Pressure 1: 142/78 Code: 8480-6 He art Rate 1: 64 bpm 01/18/2017 Blood Pressure 1: 136/64 Code: 8480-6 BMI: 21.9 Code: 00242-1 Heart Rate 1: 68 bpm Height: 5'4" Code: 8302-2 Respiratory Rate: 20 bpm SpO2: 96% Temperature: 36.8 (C) / 98.2 (F) Weight: 127 lbs Code: 38695-6 01/11/2017 Blood Pressure 1: 142/60 Code: 8480-6 Heart Rate 1: 60 bpm SpO2: 96% 01/04/2017 Blood Pressure 1: 148/70 Code: 8480-6 He art Rate 1: 68 bpm 12/28/2016 Blood Pressure 1: 132/64 Code: 8480-6 BMI: 21.4 Code: 14249-1 Heart Rate 1: 68 bpm Height: 5'4" Code: 8302-2 SpO2: 98% Weight: 124 lb s Code: 71388-2 12/24/2016 Blood Pressure 1: 138/62 Code: 8480-6 He art Rate 1: 74 bpm 12/16/2016 Blood Pressure 1: 124/64 Code: 8480-6 BMI: 21.4 Code: 88457-8 Heart Rate 1: 66 bpm Height: 5'4" Code: 8302-2 Respiratory Rate: 20 bpm SpO2: 97% Temperature: 36.8 (C) / 98.2 (F) Weight: 124 lbs Code: 57810-8 11/18/2016 Blood Pressure 1: 156/64 Code: 8480-6 BMI: 22.3 Code: 16386-6 Heart Rate 1: 64 bpm Height: 5'4" Code: 8302-2 Respiratory Rate: 20 bpm SpO2: 98% Temperature: 36.6 (C) / 97.8 (F) Weight: 129 lbs Code: 75689-8 11/04/2016 Blood Pressure 1: 112/48 Code: 8480-6 BMI: 21.6 Code: 97545-2 Heart Rate 1: 70 bpm Height: 5'4" Code: 8302-2 Respiratory Rate: 22 bpm SpO2: 98% Temperature: 36.4 (C) / 97.6 (F) Weight: 125 lbs Code: 68036-1 10/27/2016 Blood Pressure 1: 118/54 Code: 8480-6 BMI: 21.8 Code: 02935-4 Heart Rate 1: 64 bpm Height: 5'4" Code: 8302-2 Respiratory Rate: 20 bpm SpO2: 97% Temperature: 36.9 (C) / 98.4 (F) Weight: 126 lbs Code: 21302-8 10/13/2016 Blood Pressure 1: 138/82 Code: 8480-6 Heart Rate 1: 66 bpm Height: Code: 8302-2 Respiratory Rate: 20 bpm SpO2: 97% Temperature: 36 .6 (C) / 97.9 (F) Weight: Code: 96608-9 10/08/2016 Blood Pressure 1: 124/56 Code: 8480-6 BMI: 22.8 Code: 66516-0 Heart Rate 1: 76 bpm Height: 5'4" Code: 8302-2 Respiratory Rate: 20 bpm SpO2: 96% Temperature: 36.8 (C) / 98.3 (F) Weight: 132 lbs Code: 26425-0 10/05/2016 Blood Pressure 1: 126/58 Code: 8480-6 BMI: 22.6 Code: 73755-8 Heart Rate 1: 60 bpm Height: 5'4" Code: 8302-2 Respiratory Rate: 20 bpm Temperatu re: 36.7 (C) / 98.1 (F) Weight: 131 lbs Code: 72677-6 08/25/2016 Blood Pressure 1: 130/64 Code: 8480-6 Heart Rate 1: 60 bpm Respiratory Rate: 20 bpm SpO2: 96% Temperature: 37.0 (C) / 98.6 (F) We ight: 136 lbs Code: 22251-6 07/28/2016 Blood Pressure 1: 104/78 Code: 8480-6 BMI: 23.5 Code: 85062-3 Heart Rate 1: 82 bpm Height: 5'4" Code: 8302-2 Respiratory Rate: 24 bpm SpO2: 98% Temperature: 36.8 (C) / 98.2 (F) Weight: 136 lbs Code: 48290-6 06/25/2016 Blood Pressure 1: 152/66 Code: 8480-6 He art Rate 1: 60 bpm 06/23/2016 Blood Pressure 1: 198/102 Code: 8480-6 Heart Rat e 1: 62 bpm Respiratory Rate: 20 bpm SpO2: 95% Temperature: 36.6 (C) / 97.9 (F) We ight: 137 lbs Code: 33253-6 06/03/2016 Blood Pressure 1: 154/86 Code: 8480-6 BMI: 23.4 Code: 98942-6 Heart Rate 1: 56 bpm Height: 5'6" Code: 8302-2 Respiratory Rate: 20 bpm SpO2: 96% Temperature: 36.7 (C) / 98.1 (F) Weight: 143 lbs Code: 67577-8 05/26/2016 Blood Pressure 1: 124/68 Code: 8480-6 BMI: 23.6 Code: 56170-4 Heart Rate 1: 76 bpm Height: 5'6" Code: 8302-2 Respiratory Rate: 20 bpm SpO2: 96% Temperature: 36.2 (C) / 97.2 (F) Weight: 144 lbs Code: 27954-4 05/20/2016 Blood Pressure 1: 156/58 Code: 8480-6 BMI: 24.5 Code: 10062-5 Heart Rate 1: 64 bpm Height: 5'4" Code: 8302-2 Respiratory Rate: 20 bpm Temperatu re: 36.9 (C) / 98.4 (F) Weight: 142 lbs Code: 13144-5 03/19/2016 Blood Pressure 1: 144/74 Code: 8480-6 BMI: 25.9 Code: 55216-2 Heart Rate 1: 76 bpm Height: 5'4" Code: 8302-2 Respiratory Rate: 20 bpm Temperatu re: 36.8 (C) / 98.2 (F) Weight: 150 lbs Code: 46415-5 01/13/2016 Blood Pressure 1: 152/72 Code: 8480-6 BMI: 26.8 Code: 29574-5 Heart Rate 1: 64 bpm Height: 5'4" Code: 8302-2 Respiratory Rate: 20 bpm Temperatu re: 36.7 (C) / 98.1 (F) Weight: 155 lbs Code: 72367-4 12/12/2015 Blood Pressure 1: 128/68 Code: 8480-6 BMI: 26.3 Code: 94206-9 Heart Rate 1: 64 bpm Height: 5'4" Code: 8302-2 Respiratory Rate: 20 bpm Temperatu re: 36.8 (C) / 98.3 (F) Weight: 152 lbs Code: 56376-3 12/05/2015 Blood Pressure 1: 174/88 Code: 8480-6 BMI: 26.8 Code: 40098-8 Heart Rate 1: 68 bpm Height: 5'4" Code: 8302-2 Respiratory Rate: 20 bpm Temperatu re: 36.8 (C) / 98.2 (F) Weight: 155 lbs Code: 95109-2 11/27/2015 Blood Pressure 1: 188/82 Code: 8480-6 He art Rate 1: 70 bpm 10/21/2015 Blood Pressure 1: 148/80 Code: 8480-6 BMI: 27.5 Code: 33073-7 Heart Rate 1: 64 bpm Height: 5'4" Code: 8302-2 Respiratory Rate: 20 bpm Temperatu re: 36.7 (C) / 98.1 (F) Weight: 159 lbs Code: 97982-9 10/17/2015 Blood Pressure 1: 140/74 Code: 8480-6 BMI: 27.5 Code: 78983-4 Heart Rate 1: 80 bpm Height: 5'4" Code: 8302-2 Respiratory Rate: 20 bpm Temperatu re: 36.8 (C) / 98.2 (F) Weight: 159 lbs Code: 41197-3 10/07/2015 Blood Pressure 1: 174/80 Code: 8480-6 BMI: 27.5 Code: 08509-2 Heart Rate 1: 82 bpm Height: 5'4" Code: 8302-2 Respiratory Rate: 20 bpm SpO2: 97% Temperature: 36.7 (C) / 98.0 (F) Weight: 159 lbs Code: 90928-3 09/03/2015 Blood Pressure 1: 146/68 Code: 8480-6 BMI: 27.3 Code: 18028-9 Heart Rate 1: 82 bpm Height: 5'4" Code: 8302-2 Respiratory Rate: 20 bpm SpO2: 97% Temperature: 36.6 (C) / 97.9 (F) Weight: 158 lbs Code: 80179-6 08/01/2015 Blood Pressure 1: 144/78 Code: 8480-6 BMI: 26.9 Code: 89335-6 Heart Rate 1: 64 bpm Height: 5'3" Code: 8302-2 Respiratory Rate: 20 bpm Temperatu re: 36.6 (C) / 97.9 (F) Weight: 154 lbs Code: 64452-4 06/27/2015 Blood Pressure 1: 152/76 Code: 8480-6 BMI: 26.7 Code: 14398-3 Heart Rate 1: 80 bpm Height: 5'3" Code: 8302-2 Respiratory Rate: 20 bpm Temperatu re: 36.7 (C) / 98.1 (F) Weight: 153 lbs Code: 17681-1 Functional Status No Functional Status data Reason [...] Encounter Performer Location Location Address Codes Date ([id number]) OFFICE/OUTPATIENT VISIT EST Diagnosis: Insomnia[ICD10: G47.00] Diagnosis: Other malaise and fatigue[ICD10: R53.81] Diagnosis: 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] Cony POOLE [address] [address] CPT- 4: 43300 10/01/2022 ([id number]) OFFICE/OUTPATIENT VISIT EST Diagnosis: Cervicalgia[ICD10: M54.2] Diagnosis: Labile hypertension[ICD10: R09.89] Diagnosis: Paroxysmal atrial fibrillation[ICD10: I48.0] Diagnosis: Hypothyroidism, unspecified[ICD10: E03.9] Cony POOLE [address] [address] CPT- 4: 08563 08/25/2022 ([id number]) OFFICE/OUTPATIENT VISIT EST Diagnosis: Dyspnea on exertion[ICD10: R06.09] Diagnosis: Chronic atrial fibrillation[ICD10: I48.20] Diagnosis: Essential hypertension[ICD10: I10] Diagnosis: COPD (chronic obstructive pulmonary disease)[ICD10: J44.9] Cony POOLE [address] [address] CPT-4: 40650 08/11/2022 ([id number]) OFFICE/OUTPATIENT VISIT EST Diagnosis: Essential (primary) hypertension[ICD10: I10] Diagnosis: Edema[ICD10: R60.9] Diagnosis: Bradycardia[ICD10: R00.1] Diagnosis: Atrial fibrillation[ICD10: I48.91] Cony POOLE DO [address] [address] CPT-4: 34429 07/28/2022 ([id number]) OFFICE/OUTPATIENT VISIT EST Diagnosis: URI (upper respiratory infection)[ICD10: J06.9] Diagnosis: Chronic airway obstruction, not elsewhere classified[ICD10: J44.9] Cony POOLE DO [address] [address] CPT-4: 33739 07/14/2022 ([id number]) OFFICE/OUTPATIENT VISIT EST Diagnosis: Atrial fibrillation[ICD10: I48.91] Diagnosis: Essential (primary) hypertension[ICD10: I10] Diagnosis: Hypothyroidism[ICD10: E03.9] Cony POOLE DO [address] [address] CPT-4: 16938 06/23/2022 ([id number]) OFFICE/OUTPATIENT VISIT EST Diagnosis: Essential (primary) hypertension[ICD10: I10] Diagnosis: Chronic atrial fibrillation[ICD10: I48.20] Diagnosis: Chronic airway obstruction, not elsewhere classified[ICD10: J44.9] Diagnosis: Hypothyroidism[ICD10: E03.9] Cony POOLE DO [address] [address] CPT-4: 41417 05/25/2022 ([id number]) OFFICE/OUTPATIENT VISIT EST Diagnosis: COPD (chronic obstructive pulmonary disease)[ICD10: J44.9] Diagnosis: Essential hypertension[ICD10: I10] Diagnosis: Hypothyroidism[ICD10: E03.9] Diagnosis: Allergic rhinitis[ICD10: J30.9] Diagnosis: Unsteady gait[ICD10: R26.81] Cony POOLE DO [address] [address] CPT-4: 35637 03/19/2022 ([id number]) OFFICE/OUTPATIENT VISIT EST Diagnosis: COPD exacerbation[ICD10: J44.1] Diagnosis: COPD (chronic obstructive pulmonary disease)[ICD10: J44.9] Cony POOLE DO [address] [address] CPT-4: 79487 02/16/2022 ([id number]) OFFICE/OUTPATIENT VISIT EST Diagnosis: COPD exacerbation[ICD10: J44.1] Cony POOLE DO [address] [address] CPT-4: 46299 2022 ([id number]) OFFICE/OUTPATIENT VISIT EST Diagnosis: Contact with and (suspected) exposure to other viral communicable diseases[ICD10: Z20.828] Diagnosis: COPD with acute lower respiratory infection[ICD10: J44.0] Keeley POOLE [address] [address] CPT-4: 34409 01/27/2022 ([id number]) OFFICE/OUTPATIENT VISIT EST Diagnosis: Essential (primary) hypertension[ICD10: I10] Diagnosis: Hypothyroidism, unspecified[ICD10: E03.9] Diagnosis: Chronic obstructive pulmonary disease, unspecified[ICD10: J44.9] Cony POOLE [address] [address] CPT-4: 93380 10/28/2021 ([id number]) OFFICE/OUTPATIENT VISIT EST Diagnosis: Essential (primary) hypertension[ICD10: I10] Diagnosis: Atrial fibrillation[ICD10: I48.91] Diagnosis: Edema[ICD10: R60.9] Diagnosis: Mixed hyperlipidemia[ICD10: E78.2] Diagnosis: Hypothyroidism[ICD10: E03.9] Diagnosis: Dyspnea[ICD10: R06.00] Diagnosis: Allergic rhinitis, unspecified[ICD10: J30.9] Cony HayesMelina NGOC DO [address] [address] CPT- 4: 02189 09/23/2021 ([id number]) OFFICE/OUTPATIENT VISIT EST Diagnosis: Essential (primary) hypertension[ICD10: I10] Diagnosis: Edema[ICD10: R60.9] Diagnosis: Stasis dermatitis[ICD10: I87.2] Diagnosis: Dyspnea[ICD10: R06.00] Cony Bowmanbonygloria HayesMelina LISA Albarran DO [address] [address] CPT-4: 60086 08/21/2021 ([id number]) OFFICE/OUTPATIENT VISIT EST Diagnosis: Essential (primary) hypertension[ICD10: I10] Diagnosis: Atrial fibrillation[ICD10: I48.91] Diagnosis: Edema[ICD10: R60.9] Cony Bowmanlea CONY AbigailMelina NGCO [address] [address] CPT-4: 34049 07/30/19 ([id number]) OFFICE/OUTPATIENT VISIT EST Diagnosis: Essential hypertension[ICD10: I10] Diagnosis: 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] Diagnosis: Reactive airway disease[ICD10: J45.909] Diagnosis: Sciatica[ICD10: M54.30] Cony Colbylea CONY AbigailMelina MIGUEL A GLORIA [address] [address] CPT-4: 20050 06/19/2021 ([id number]) NURSE/OUTPATIENT VISIT EST Diagnosis: Urinary tract infection[ICD10: N39.0] Cony Bowmanlea DANTEMARY ZARAGOZA AbigailMelina NGOC [address] [address] CPT-4: 49255 05/12/2021 ([id number]) OFFICE/OUTPATIENT VISIT EST Diagnosis: Edema leg[ICD10: R60.0] Diagnosis: Recurrent UTI[ICD10: N39.0] 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] Conyjeannette Bowmanlea CONY Jeanine [facility] [address] [place] [address] CPT-4: 27191 05/08/2021 ([id number]) OFFICE/OUTPATIENT VISIT EST Diagnosis: Cervical radiculopathy[ICD10: M54.12] Diagnosis: 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] Cony POOLE DO [email or web address] [address] [place] [address] CPT- 4: 34207 04/28/2021 ([id number]) OFFICE/OUTPATIENT VISIT EST Diagnosis: Other fatigue[ICD10: R53.83] Diagnosis: Hypothyroidism[ICD10: E03.9] Diagnosis: Vitamin B12 deficiency anemia, unspecified[ICD10: D51.9] Keeley POOLE DO [address] [address] CPT-4: 50932 03/19/2021 ([id number]) NURSE/OUTPATIENT VISIT EST Diagnosis: Encounter for immunization[ICD10: Z23] Cony GRADYER [address] [address] CPT-4: 31957 02/27/2021 ([id number]) OFFICE/OUTPATIENT VISIT EST Diagnosis: Atrial fibrillation[ICD10: I48.91] Diagnosis: Essential (primary) hypertension[ICD10: I10] Diagnosis: Hypothyroidism[ICD10: E03.9] Diagnosis: Lymphadenopathy of right cervical region[ICD10: R59.0] Diagnosis: Osteopenia[ICD10: M85.80] Cony WAY [address] [address] CPT-4: 10427 02/06/2021 ([id number]) OFFICE/OUTPATIENT VISIT EST Diagnosis: Skin lesion of right leg[ICD10: L98.9] Keeley BOWMANNDER [email or web address] [address] [place] [address] CPT-4: 17891 12/20/2020 ([id number]) OFFICE/OUTPATIENT VISIT EST Diagnosis: Nontraumatic blister of skin[ICD10: R23.8] Keeley POOLE DO [address] [address] CPT- 4: 21363 12/11/2020 ([id number]) OFFICE/OUTPATIENT VISIT EST Diagnosis: Nocturia[ICD10: R35.1] Diagnosis: Essential hypertension[ICD10: I10] Conydella OCONNELL DEVIN POOLE DO [address] [address] CPT-4: 41866 11/11/2020 ([id number]) OFFICE/OUTPATIENT VISIT EST Diagnosis: Essential hypertension[ICD10: I10] Diagnosis: Paroxysmal atrial fibrillation[ICD10: I48.0] Diagnosis: Hypothyroidism[ICD10: E03.9] Cony Colbylea CONY Jeanine POOLE DO [address] [address] CPT-4: 99560 07/29/2020 ([id number]) OFFICE/OUTPATIENT VISIT EST Diagnosis: Dizziness and giddiness[ICD10: R42] Diagnosis: Essential hypertension[ICD10: I10] Conydella OCONNELL DEVIN POOLE DO [address] [address] CPT-4: 84717 06/24/2020 ([id number]) OFFICE/OUTPATIENT VISIT EST Diagnosis: Weakness[ICD10: R53.1] Apoorva POOLE [address] [address] CPT-4: 85107 06/21/19 21 ([id number]) OFFICE/OUTPATIENT VISIT EST Diagnosis: URI (upper respiratory infection)[ICD10: J06.9] Apoorva Lindaimaldi [facility] [address] [place] [address] CPT-4: 53914 03/19/2020 ([id number]) OFFICE/OUTPATIENT VISIT EST Diagnosis: Essential (primary) hypertension[ICD10: I10] Diagnosis: Atrial fibrillation status post cardioversion[ICD10: I48.91] Diagnosis: Right upper lobe pulmonary nodule[ICD10: R91.1] Cony AVERY SMelina ORENDER DO [address] [address] CPT- 4: 06892 02/29/2020 ([id number]) OFFICE/OUTPATIENT VISIT EST Diagnosis: Stasis dermatitis[ICD10: I87.2] Apoorva BOWMANNDER DO [address] [address] CPT-4: 73461 02/22/2020 ([id number]) NURSE/OUTPATIENT VISIT EST Diagnosis: Urinary tract infection, site not specified[ICD10: N39.0] Cony Solorzano ORENDER DO [address] [address] CPT-4: 51637 02/20/2020 ([id number]) OFFICE/OUTPATIENT VISIT EST Diagnosis: Urinary tract infection[ICD10: N39.0] Apoorva AZRAGOZA SMelina BOWMANNDER DO [address] [address] CPT-4: 19697 02/13/2020 ([id number]) OFFICE/OUTPATIENT VISIT EST Diagnosis: Neck pain[ICD10: M54.2] Diagnosis: Muscle spasm[ICD10: M62.838] Cony AVERY SMelina BOWMANNDER DO [address] [address] CPT-4: 97535 2020 ([id number]) OFFICE/OUTPATIENT VISIT EST Diagnosis: Atrial fibrillation[ICD10: I48.91] Diagnosis: Essential hypertension[ICD10: I10] Diagnosis: Right wrist pain[ICD10: M25.531] Cony AVERY SMelina BOWMANNDER DO [address] [address] CPT-4: 29023 01/22/2020 ([id number]) OFFICE/OUTPATIENT VISIT EST Diagnosis: Paroxysmal atrial fibrillation[ICD10: I48.0] Diagnosis: Essential hypertension[ICD10: I10] Cony Bowmanbonygloria [facility] [address] [place] [address] CPT-4: 55444 12/26/2019 ([id number]) OFFICE/OUTPATIENT VISIT EST Diagnosis: Lung nodule[ICD10: R91.1] Diagnosis: CHF (congestive heart failure)[ICD10: I50.9] Diagnosis: Atrial fibrillation[ICD10: I48.91] Apoorva BOWMANNDER DO [address] [address] CPT-4: 93651 11/27/2019 ([id number]) OFFICE/OUTPATIENT VISIT EST Diagnosis: Urinary tract infection[ICD10: N39.0] Diagnosis: Hypotension[ICD10: I95.9] Cony BOWMAN NDER DO [address] [address] CPT-4: 60236 11/09/2019 ([id number]) OFFICE/OUTPATIENT VISIT EST Diagnosis: Left leg swelling[ICD10: M79.89] Cony Solorzano ORENDER DO [address] [address] CPT-4: 58063 10/10/2019 ([id number]) OFFICE/OUTPATIENT VISIT EST Diagnosis: Muscle spasm[ICD10: M62.838] Cony Solorzano ORENDER DO [address] [address] CPT-4: 42031 08/25/2019 ([id number]) OFFICE/OUTPATIENT VISIT EST Diagnosis: Low back pain[ICD10: M54.5] Diagnosis: Sciatica of left side[ICD10: M54.32] Cony Solorzano ORENDER DO [address] [address] CPT-4: 99642 07/13/2019 ([id number]) OFFICE/OUTPATIENT VISIT EST Diagnosis: Pneumonia due to infectious organism[ICD10: J18.9] Cony HayesMelina ORENDER DO [email or web address] [address] [place] [phone] CPT- 4: 48396 05/18/2019 ([id number]) OFFICE/OUTPATIENT VISIT EST Diagnosis: Pneumonia due to infectious organism[ICD10: J18.9] Cony POOLE DO [address] [address] CPT- 4: 04999 05/17/2019 ([id number]) NURSE/OUTPATIENT VISIT EST Diagnosis: Urinary tract infection[ICD10: N39.0] Cony POOLE DO [address] [address] CPT-4: 47798 05/08/2019 ([id number]) NURSE/OUTPATIENT VISIT EST Diagnosis: Acute pharyngitis[ICD10: J02.9] Diagnosis: Altered taste[ICD10: R43.2] Cony CONDON DO [address] [address] CPT-4: 15408 05/08/2019 ([id number]) OFFICE/OUTPATIENT VISIT EST Diagnosis: Urinary tract infection, site not specified[ICD10: N39.0] Diagnosis: Stomatitis and mucositis with change of taste[ICD10: K12.1] Cony POOLE DO [address] [address] CPT-4: 98037 04/24/2019 ([id number]) NURSE/OUTPATIENT VISIT EST Diagnosis: Hematuria[ICD10: R31.9] Cony CASTRO DO [address] [address] CPT-4: 80444 04/21/2019 ([id number]) OFFICE/OUTPATIENT VISIT EST Diagnosis: Oral mucositis (ulcerative), unspecified[ICD10: K12.30] Diagnosis: Stomatitis and mucositis with change of taste[ICD10: K12.1] Cony POOLE DO [address] [address] CPT-4: 92082 04/10/2019 ([id number]) NURSE/OUTPATIENT VISIT EST Diagnosis: FLU VACCINE[ICD10: Z23] [facility] [address] [place] [address] CPT-4: 45385 03/02/2019 ([id number]) OFFICE/OUTPATIENT VISIT EST Diagnosis: Essential (primary) hypertension[ICD10: I10] Diagnosis: Other fatigue[ICD10: R53.83] Diagnosis: Hypothyroidism, unspecified[ICD10: E03.9] Diagnosis: Nocturia[ICD10: R35.1] [facility] [address] [place] [address] CPT-4: 25150 02/16/2019 ([id number]) NURSE/OUTPATIENT VISIT EST Diagnosis: Essential (primary) hypertension[ICD10: I10] Cony POOLE DO [address] [address] CPT- 4: 13876 01/24/2019 ([id number]) OFFICE/OUTPATIENT VISIT EST Diagnosis: Acute upper respiratory infection, unspecified[ICD10: J06.9] [facility] [address] [place] [address] CPT-4: 66319 12/20/2018 ([id number]) OFFICE/OUTPATIENT VISIT EST Diagnosis: Paroxysmal atrial fibrillation[ICD10: I48.0] Diagnosis: Other fatigue[ICD10: R53.83] Diagnosis: Essential (primary) hypertension[ICD10: I10] Diagnosis: Hypothyroidism, unspecified[ICD10: E03.9] [facility] [address] [place] [address] CPT- 4: 95154 12/12/2018 ([id number]) OFFICE/OUTPATIENT VISIT EST Diagnosis: Essential (primary) hypertension[ICD10: I10] Diagnosis: Allergic rhinitis due to pollen[ICD10: J30.1] [facility] [address] [place] [address] CPT- 4: 05245 10/19/2018 ([id number]) OFFICE/OUTPATIENT VISIT EST Diagnosis: Allergic rhinitis due to pollen[ICD10: J30.1] Diagnosis: Essential (primary) hypertension[ICD10: I10] Cony POOLE [address] [address] CPT- 4: 56570 10/05/2018 ([id number]) OFFICE/OUTPATIENT VISIT EST Diagnosis: Allergic rhinitis due to pollen[ICD10: J30.1] Diagnosis: Other fatigue[ICD10: R53.83] Diagnosis: Hematuria, unspecified[ICD10: R31.9] Cony POOLE [address] [address] CPT-4: 99639 09/28/2018 ([id number]) OFFICE/OUTPATIENT VISIT EST Diagnosis: Allergic rhinitis due to pollen[ICD10: J30.1] Diagnosis: Cough[ICD10: R05] Diagnosis: Dermatitis, unspecified[ICD10: L30.9] Diagnosis: Slow transit constipation[ICD10: K59.01] Cony POOLE [address] [address] CPT- 4: 55717 09/26/2018 ([id number]) OFFICE/OUTPATIENT VISIT EST Diagnosis: Acute bronchitis, unspecified[ICD10: J20.9] Diagnosis: Other specified respiratory disorders[ICD10: J98.8] Merry Justiceyaw POOLE DO [address] [address] CPT- 4: 95893 09/23/2018 ([id number]) OFFICE/OUTPATIENT VISIT EST Diagnosis: Acute bronchitis, unspecified[ICD10: J20.9] Diagnosis: Fever, unspecified[ICD10: R50.9] Cony POOLE [address] [address] CPT-4: 17250 09/22/2018 ([id number]) OFFICE/OUTPATIENT VISIT EST Diagnosis: Tachycardia, unspecified[ICD10: R00.0] Diagnosis: Dysuria[ICD10: R30.0] Diagnosis: Personal history of urinary (tract) infections[ICD10: Z87.440] Merry POOLE DO [address] [address] CPT-4: 42861 09/20/2018 ([id number]) OFFICE/OUTPATIENT VISIT EST Diagnosis: Other fatigue[ICD10: R53.83] Diagnosis: Hypothyroidism, unspecified[ICD10: E03.9] Cony POOLE DO [address] [address] CPT- 4: 05057 09/15/2018 ([id number]) NURSE/OUTPATIENT VISIT EST Diagnosis: Urinary tract infection, site not specified[ICD10: N39.0] Cony POOLE DO [address] [address] CPT-4: 62079 09/14/2018 ([id number]) OFFICE/OUTPATIENT VISIT EST Diagnosis: Chronic fatigue, unspecified[ICD10: R53.82] Diagnosis: Essential (primary) hypertension[ICD10: I10] Diagnosis: Hypothyroidism, unspecified[ICD10: E03.9] Diagnosis: Paroxysmal atrial fibrillation[ICD10: I48.0] Cony POOLE DO [address] [address] CPT- 4: 98822 09/08/2018 ([id number]) OFFICE/OUTPATIENT VISIT EST Diagnosis: Dysuria[ICD10: R30.0] Diagnosis: Personal history of urinary (tract) infections[ICD10: Z87.440] Merry POOLE DO [address] [address] CPT-4: 66724 09/05/2018 ([id number]) NURSE/OUTPATIENT VISIT EST Diagnosis: Essential (primary) hypertension[ICD10: I10] Diagnosis: Edema, unspecified[ICD10: R60.9] Cony POOLE [address] [address] CPT-4: 12588 04/20/2018 ([id number]) OFFICE/OUTPATIENT VISIT EST Diagnosis: FLU VACCINE[ICD10: Z23] Diagnosis: Hypothyroidism, unspecified[ICD10: E03.9] Diagnosis: Essential (primary) hypertension[ICD10: I10] Diagnosis: Localized edema[ICD10: R60.0] Cony POOLE DO [address] [address] CPT-4: 13844 03/03/2018 ([id number]) OFFICE/OUTPATIENT VISIT EST Diagnosis: Atopic dermatitis, unspecified[ICD10: L20.9] Apoorva POOLE DO [address] [address] CPT- 4: 95407 02/16/2018 ([id number]) OFFICE/OUTPATIENT VISIT EST Diagnosis: Pressure ulcer of right heel, stage 1[ICD10: L89.611] Diagnosis: Other fatigue[ICD10: R53.83] Apoorva POOLE DO [address] [address] CPT-4: 10819 01/26/2018 OFFICE/OUTPATIENT VISIT EST Diagnosis: Hypothyroidism, unspecified[ICD10: E03.9] Diagnosis: Essential (primary) hypertension[ICD10: I10] Diagnosis: Localized edema[ICD10: R60.0] Diagnosis: Other fatigue[ICD10: R53.83] Cony POOLE DO [address] [address] CPT-4: 58636 11/30/2017 ([id number]) OFFICE/OUTPATIENT VISIT EST Diagnosis: Other seborrheic keratosis[ICD10: L82.1] Cony POOLE DO [address] [address] CPT- 4: 19649 11/04/2017 ([id number]) OFFICE/OUTPATIENT VISIT EST Diagnosis: Achilles tendinitis, right leg[ICD10: M76.61] Apoorva POOLE DO [address] [place] [place] [address] CPT- 4: 21184 10/20/2017 ([id number]) OFFICE/OUTPATIENT VISIT EST Diagnosis: Essential (primary) hypertension[ICD10: I10] Diagnosis: Hypothyroidism, unspecified[ICD10: E03.9] Diagnosis: Weakness[ICD10: R53.1] Cony Albarran [address] [address] CPT-4: 97353 08/30/2017 ([id number]) OFFICE/OUTPATIENT VISIT EST Diagnosis: Hypothyroidism, unspecified[ICD10: E03.9] Diagnosis: Essential (primary) hypertension[ICD10: I10] Diagnosis: Paroxysmal atrial fibrillation[ICD10: I48.0] Cony POOLE [address] [address] CPT- 4: 00400 05/25/2017 ([id number]) OFFICE/OUTPATIENT VISIT EST Diagnosis: Essential (primary) hypertension[ICD10: I10] Diagnosis: Hypothyroidism, unspecified[ICD10: E03.9] Cony POOLE [address] [address] CPT- 4: 78027 03/22/2017 ([id number]) OFFICE/OUTPATIENT VISIT EST Diagnosis: FLU VACCINE[ICD10: Z23] Cony CASTRO [address] [address] CPT-4: 90215 03/08/2017 ([id number]) OFFICE/OUTPATIENT VISIT EST Diagnosis: Essential (primary) hypertension[ICD10: I10] Diagnosis: Hypothyroidism, unspecified[ICD10: E03.9] Cony POOLE [address] [address] CPT- 4: 56280 01/18/2017 ([id number]) OFFICE/OUTPATIENT VISIT EST Diagnosis: Essential (primary) hypertension[ICD10: I10] Diagnosis: Localized edema[ICD10: R60.0] Diagnosis: Hypotension, unspecified[ICD10: I95.9] Cony POOLE DO [address] [address] CPT-4: 74515 12/16/2016 ([id number]) OFFICE/OUTPATIENT VISIT EST Diagnosis: Hypothyroidism, unspecified[ICD10: E03.9] Diagnosis: Essential (primary) hypertension[ICD10: I10] Cony POOLE DO [address] [address] CPT- 4: 72744 11/18/2016 ([id number]) OFFICE/OUTPATIENT VISIT EST Diagnosis: Hypotension due to drugs[ICD10: I95.2] Diagnosis: Lymphangitis[ICD10: I89.1] Diagnosis: Hypothyroidism, unspecified[ICD10: E03.9] Cony POOLE DO [address] [address] CPT- 4: 52459 11/04/2016 ([id number]) OFFICE/OUTPATIENT VISIT EST Diagnosis: Hypotension due to drugs[ICD10: I95.2] Diagnosis: Other fatigue[ICD10: R53.83] Cony POOLE DO [address] [address] CPT-4: 91495 10/27/2016 ([id number]) OFFICE/OUTPATIENT VISIT EST Diagnosis: Other symptoms and signs involving the genitourinary system[ICD10: R39.89] Cony POOLE DO [address] [address] CPT-4: 26835 10/26/2016 OFFICE/OUTPATIENT VISIT EST Diagnosis: Venous insufficiency (chronic) (peripheral)[ICD10: I87.2] Diagnosis: Lymphangitis[ICD10: I89.1] Diagnosis: Cellulitis of left lower limb[ICD10: L03.116] Cony POOLE DO [address] [address] CPT- 4: 92849 10/13/2016 OFFICE/OUTPATIENT VISIT EST Diagnosis: Cellulitis of left lower limb[ICD10: L03.116] Diagnosis: Lymphangitis[ICD10: I89.1] Cony STEVENSLINE Jeanine MOCTEZUMA [address] [address] CPT-4: 89627 10/08/2016 ([id number]) OFFICE/OUTPATIENT VISIT EST Diagnosis: Hypothyroidism, unspecified[ICD10: E03.9] Diagnosis: Essential (primary) hypertension[ICD10: I10] Diagnosis: Other fatigue[ICD10: R53.83] Diagnosis: Cellulitis of left lower limb[ICD10: L03.116] Cony HOWELLQUELINE AbigailMelina NGOC [address] [address] CPT- 4: 95773 10/05/2016 ([id number]) OFFICE/OUTPATIENT VISIT EST Diagnosis: Essential (primary) hypertension[ICD10: I10] Diagnosis: Localized edema[ICD10: R60.0] Diagnosis: Other fatigue[ICD10: R53.83] Cony Poole CONY AbigailMelina NGOC [address] [address] CPT-4: 53783 08/25/2016 ([id number]) OFFICE/OUTPATIENT VISIT EST Diagnosis: Essential (primary) hypertension[ICD10: I10] Diagnosis: Hypothyroidism, unspecified[ICD10: E03.9] Diagnosis: Weakness[ICD10: R53.1] Cony Colbylea Solorzano COLBYRY Deion [address] [address] CPT-4: 38877 07/28/2016 ([id number]) OFFICE/OUTPATIENT VISIT EST Diagnosis: Essential (primary) hypertension[ICD10: I10] Merlesiria Solorzano COLBYBONYGLORIA [address] [address] CPT- 4: 09982 06/23/2016 ([id number]) OFFICE/OUTPATIENT VISIT EST Diagnosis: Cough[ICD10: R05] Diagnosis: Essential (primary) hypertension[ICD10: I10] Merle Solorzano [address] [address] CPT- 4: 94823 06/03/2016 ([id number]) OFFICE/OUTPATIENT VISIT EST Diagnosis: Acute upper respiratory infection, unspecified[ICD10: J06.9] Diagnosis: Fever, unspecified[ICD10: R50.9] Merle GRADY[address] [address] CPT-4: 46187 05/26/2016 ([id number]) OFFICE/OUTPATIENT VISIT EST Diagnosis: Essential (primary) hypertension[ICD10: I10] Diagnosis: Paroxysmal atrial fibrillation[ICD10: I48.0] Diagnosis: Venous insufficiency (chronic) (peripheral)[ICD10: I87.2] Diagnosis: Primary insomnia[ICD10: F51.01] Diagnosis: Hypothyroidism, unspecified[ICD10: E03.9] Cony GRADY[address] [address] CPT- 4: 47629 05/20/2016 ([id number]) OFFICE/OUTPATIENT VISIT EST Diagnosis: Pain in right ankle and joints of right foot[ICD10: M25.571] Diagnosis: Venous insufficiency (chronic) (peripheral)[ICD10: I87.2] Diagnosis: FLU VACCINE[ICD10: Z23] Cony GRADY [address] [address] CPT-4: 14822 03/19/2016 ([id number]) OFFICE/OUTPATIENT VISIT EST Diagnosis: Essential (primary) hypertension[ICD10: I10] Diagnosis: Localized edema[ICD10: R60.0] Diagnosis: Paroxysmal atrial fibrillation[ICD10: I48.0] Diagnosis: PNEUMOCOCCAL VACCINE[ICD10: Z23] Cony GRADY[address] [address] CPT-4: 63106 01/13/2016 ([id number]) OFFICE/OUTPATIENT VISIT EST Diagnosis: Hypo-osmolality and hyponatremia[ICD10: E87.1] Diagnosis: Essential (primary) hypertension[ICD10: I10] Diagnosis: Paroxysmal atrial fibrillation[ICD10: I48.0] Cony POOLE [address] [address] CPT- 4: 16411 12/12/2015 ([id number]) OFFICE/OUTPATIENT VISIT EST Diagnosis: Essential (primary) hypertension[ICD10: I10] Diagnosis: Edema, unspecified[ICD10: R60.9] Diagnosis: Hypo-osmolality and hyponatremia[ICD10: E87.1] Cony POOLE [address] [address] CPT- 4: 02926 12/05/2015 ([id number]) OFFICE/OUTPATIENT VISIT EST Diagnosis: Hypo-osmolality and hyponatremia[ICD10: E87.1] Diagnosis: Hematuria, unspecified[ICD10: R31.9] Cony POOLE [address] [address] CPT-4: 73063 11/27/2015 ([id number]) OFFICE/OUTPATIENT VISIT EST Diagnosis: Essential (primary) hypertension[ICD10: I10] Diagnosis: Edema, unspecified[ICD10: R60.9] Diagnosis: Dizziness and giddiness[ICD10: R42] Merel David POOLE [address] [address] CPT-4: 93209 10/21/2015 ([id number]) OFFICE/OUTPATIENT VISIT EST Diagnosis: Essential (primary) hypertension[ICD10: I10] Diagnosis: Localized edema[ICD10: R60.0] Diagnosis: Paroxysmal atrial fibrillation[ICD10: I48.0] Cony POOLE [address] [address] CPT- 4: 44507 10/17/2015 ([id number]) OFFICE/OUTPATIENT VISIT EST Diagnosis: Essential (primary) hypertension[ICD10: I10] Diagnosis: Tachycardia, unspecified[ICD10: R00.0] Diagnosis: Hypothyroidism, unspecified[ICD10: E03.9] Diagnosis: Palpitations[ICD10: R00.2] Merle MOCTEZUMA DO [address] [address] CPT-4: 34971 10/07/2015 ([id number]) OFFICE/OUTPATIENT VISIT EST Diagnosis: Acute upper respiratory infection, unspecified[ICD10: J06.9] Merle POOLE DO [address] [address] CPT-4: 37809 09/03/2015 ([id number]) OFFICE/OUTPATIENT VISIT EST Diagnosis: Essential (primary) hypertension[ICD10: I10] Cony POOLE DO [address] [address] CPT- 4: 85627 08/01/2015 OFFICE/OUTPATIENT VISIT NEW Diagnosis: Essential (primary) hypertension[ICD10: I10] Diagnosis: Hypothyroidism, unspecified[ICD10: E03.9] Diagnosis: Family history of malignant neoplasm of breast[ICD10: Z80.3] Cony POOLE DO [address] [address] CPT-4: 30990 06/27/2015 Plan of Care Planned Activity Notes [...] ICD-10 : R09.89 08/25/2022 Appointment: Cony Pooletel: [address] [place], [place] [phone] US FOLLOW UP 08/25/2022 Care Plan: X-RAY EXAM NECK SPINE 4/5VWS LOINC : 36399-3 Pending 08/25/2022 Visit Diagnosis Plan: Chronic atrial [...] ICD-10 : J44.9 08/11/2022 Appointment: Cony Pooletel: [address] [place], [place] [phone] FOLLOW UP 08/11/2022 Appointment: Cony Poole WPtel: [address] [place], [place] [phone] US RESCHEDULED 08/11/2022 Visit Diagnosis Plan: Edema [...] : R00.1 07/28/2022 Appointment: Cony Poole WPtel: [phone] FOLLOW UP 07/28/2022 Patient Education: hydralazine- [employer] Coupon [id number] Completed 07/28/2022 Patient Education: losartan- [employer] Coupon [id number] Completed 07/28/2022 Visit Diagnosis Plan: URI (upper respiratory infection ) Discussion: Influenza A and B and Covid negative Z-pack Continue budesonide and perforomist and add albuterol at least TID Notify if worsening ICD-9 : 465.9 ICD-10 : J06.9 07/14/2022 Appointment: Cony Poole WPtel: [address] [place], [place] [address] ACUTE ILLNESS 07/14/2022 Visit Diagnosis Plan: Hypothyroidism [...] : I10 06/23/2022 Appointment: Cony Poole WPtel: [address] [place], [place] [phone] FOLLOW UP 06/23/2022 Visit Diagnosis Plan: Hypothyroidism [...] I10 05/25/2022 [facility]ment[phone] [facility] 05/25/2022 Patient Education: losartan- [employer] Coupon [id number] [email or web address]/[email or web address] Completed 05/25/2022 Visit Diagnosis Plan: Essential hypertension [...] E03.9 03/19/2022 Appointment: Con[facility] Po[facility]el[facility] [phone] FO[facility] 03/19/2022 Visit Diagnosis Plan: COPD exacerbation Discussion: Co ntinue budesonide/performomist and use albuterol prn as rescue Go for COVID booster Flu shot in March Fwup 1month ICD-9 : 491.21 ICD-10 : J44.1 02/16/2022 Appointment: Cony Poole WPtel: [address] [phone] FOLLOW UP 02/16/2022 Visit Diagnosis Plan: COPD exacerbation Discussion: Co ntinue breztri 2p BID and albuterol prn Will switch to Nebulizer with Budesonide 0.5mg BID and Perforomist 20mcg BID with duoneb q4hrs prn Fwup 2 weeks unless worsening ICD-9 : 491.21 ICD-10 : J44.1 2022 Appointment: Cony Poole WPtel: [address] [phone] FOLLOW UP 2022 Visit Diagnosis Plan: [...] J44.0 01/27/2022 Appointment: Keeley Johnson WPtel: [address] [phone] ACUTE ILLNESS 01/27/2022 Patient Education: Patient Medication Summary Completed 01/27/2022 Referral: Soy Rodriguez WPtel: [facility] [address] [place] [address] [id number] [place] 09/30 - for office Completed 10/29/2021 [...] : E03.9 10/28/2021 Appointment: Cony Poole WPtel: [address] [place], [place] [phone] US FOLLOW UP 10/28/2021 Visit Diagnosis Plan: [...] : R06.00 09/23/2021 Appointment: Cony Poole WPtel: [address] [place], [place] [phone] US FOLLOW UP 09/23/2021 Appointment: Cony Poole WPtel: [address] [place], [place] [phone] US CANCELED 09/08/2021 Visit Diagnosis Plan: Essential [...] : I87.2 08/21/2021 Appointment: Cony Poole WPtel: [address] [place], [place] [phone] [place] FOLLOW UP 08/21/2021 Appointment: Keeley Johnson WPtel: [address] [place] [phone] US CANCELED 08/12/2021 Visit Diagnosis Plan: Essential (primary) hypertension Discussion: Stable ICD-9 : 401.9 ICD-10 : I10 07/30/2021 Visit Diagnosis Plan: Atrial fibrillation Discussion: On cardizem and eliquis and rate controlled and asympotomatic Sees Dr Lopez in 2 weeks ICD-9 : 427.31 ICD-10 : I48.91 07/30/2021 Appointment: Cony Poole WPtel: [address] [place], [place] [phone] US FOLLOW UP 07/30/2021 Appointment: Cony Poole WPtel: [address] [place], [place] [phone] [place] due to weather CANCELED 07/24/2021 Visit [...] : J45.909 06/19/2021 Appointment: Cony Poole WPtel: [address] [place], [place] [phone] FOLLOW UP 06/19/2021 Appointment: Cony Poole WPtel: [address] [place], [place] [phone] US seen 05/08/21 at 1 pm by doctor as appt opened up CANCELED 05/14/2021 Appointment: Cony Poole WPtel: [address] [place], [place] [phone] UA 05/12/2021 Visit Diagnosis Plan: Recurrent UTI [...] : R60.0 05/08/2021 Appointment: Cony Poole WPtel: [address] [place], [place] [phone] ACUTE ILLNESS 05/08/2021 Visit Diagnosis Plan: Cervical radiculopathy Discussio n: Start PT ICD-9 : 723.4 ICD-10 : M54.12 04/28/2021 Visit Diagnosis Plan: Stress and adjustment reaction D iscussion: Stress Reducers Discussed Discussion: Stress Reducers Discussed meds ICD-9 : 309.89 ICD-10 : F43.29 04/28/2021 Appointment: Cony Poole WPtel: [address] [place] [phone] ACUTE ILLNESS 04/28/2021 Appointment: Cony Poole WPtel: [address] [place], [place] [phone] US RESCHEDULED 03/25/2021 Visit Diagnosis Plan: Other fatigue Discussion: Will r echeck thyroid labs as previously scheduled, B12, and ferritin level per Dr. Brown- discussed could be causing fatigue. Will f/u after labs or sooner for worsening/concerns. ICD-9 : 780.79 ICD-10 : R53.83 03/19/2021 Appointment: Keeley Johnson WPtel: [phone] [phone] ACUTE ILLNESS 03/19/2021 Patient Education: Patient Medication Summary Completed 03/19/2021 Appointment: Cony Poole WPtel: [address] [place], [place] [phone] US INJECTION 02/27/2021 Visit Diagnosis Plan: Essential [...] : I48.91 02/06/2021 Appointment: Cony Poole WPtel: [address] [place], [place] [phone] ACUTE ILLNESS 02/06/2021 Care Plan: US EXAM OF HEAD AND NECK LOIN C : 89298-2 Pending 02/06/2021 Care Plan: DXA BONE DENSITY AXIAL LOINC : 52085-4 Pending 02/06/2021 Appointment: Keeley Johnson WPtel: [phone] [phone] US CANCELED 12/24/2020 Visit Diagnosis Plan: Skin lesion of right leg Discuss ion: Appears to be healing- is smaller, no s/s of infection. Will f/u if does not improve or worsens. ICD-9 : 709.9 ICD-10 : L98.9 12/20/2020 Appointment: Keeley Johnson WPtel: [phone] [phone] OFFICE SURGERY 12/20/2020 Patient Education: Patient Medication Summary Completed 12/20/2020 Visit Diagnosis Plan: Nontraumatic blister of skin Dis cussion: Small isolated lesion, no s/s of infection. Bandaid and neosporin applied. 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 F/U for worsening/concerns or if more lesions appear. ICD-9 : 709.8 ICD-10 : R23.8 12/11/2020 Appointment: Keeley Johnson WPtel: [phone] [phone] ACUTE ILLNESS 12/11/2020 Patient Education: Patient Medication [...] R35.1 11/11/2020 Appointment: Cony Poole WPtel: [phone] [phone] ACUTE ILLNESS 11/11/2020 Appointment: Cony Poole WPtel: [address] [phone] CANCELED 11/11/2020 Visit Diagnosis Plan: Inflamed seborrheic keratosis Di scussion: Cryotherapy as above ICD-9 : 702.11 ICD-10 : L82.0 09/05/2020 Appointment: Cony Poole WPtel: [phone] ACUTE ILLNESS 09/05/2020 Visit Diagnosis Plan: Essential hypertension Discussio n: Stable ICD-9 : 401.9 ICD-10 : I10 07/29/2020 Visit Diagnosis Plan: Paroxysmal atrial fibrillation D iscussion: On eliquis ICD-9 : 427.31 ICD-10 : I48.0 07/29/2020 Visit Diagnosis Plan: Hypothyroidism Discussion: Lab d iscussed Will recheck lab in 2mos ICD-9 : 244.9 ICD-10 : E03.9 07/29/2020 Appointment: Cony Poole WPtel: [address] [place], [place] [phone] FOLLOW UP 07/29/2020 Visit Diagnosis Plan: Dizziness and giddiness Discussi on: Continue increased dose of Cardizem ER 120mg po BID and monitor BP/pulse Has LINQ device in place Discussed Kardia EKG Follow Up: 1 months ICD-9 : 780.4 ICD-10 : R42 06/24/2020 Appointment: Cony Poole WPtel: [phone] Hospital Follow Up 06/24/2020 Visit Diagnosis [...] : R53.1 06/21/2020 Appointment: Apoorva Rueda [email or web address] [facility] TELEMEDICINE 06/21/2020 Visit Diagnosis Plan: URI [...] : J06.9 03/19/2020 Appointment: Apoorva Rueda [email or web address] [facility] TELEMEDICINE 03/19/2020 Visit Diagnosis Plan: Atrial [...] I10 02/29/2020 Appointment: Cony Poole WPtel: [phone] [phone] FOLLOW UP 02/29/2020 Care Plan: CT [...] I87.2 02/22/2020 Appointment: Mohit, Apoorva R. [address] [place], [place] [phone] ACUTE ILLNESS 02/22/2020 Appointment: Cony Poole WPtel: [address] [place], [place] [address] 02/20/2020 Visit Diagnosis Plan: Urinary tract infection Discussi on: based on patient's age and length of illness, clinical s/s, will give 1 gm rocephin in office. urine sent for culture. push fluids and call office with new or worsening symptoms. ICD-9 : 599.0 ICD-10 : N39.0 02/13/2020 Appointment: Apoorva Rueda [address] [place] [place] [id number] 02/13/2020 Visit Diagnosis Plan: Neck pain Discussion: Daily stre tches Moist heat Topical muscle rub Can use baclofen 1/2 tab during day and full tab at night ICD-9 : 723.1 ICD-10 : M54.2 2020 Appointment: Cony Poole WPtel: [address] [place], [place] [address] ACUTE ILLNESS 2020 Visit Diagnosis Plan: Atrial [...] : M25.531 01/22/2020 Appointment: Cony Poole WPtel: [address] [place], [place] [phone] FOLLOW UP 01/22/2020 Visit Diagnosis Plan: Paroxysmal atrial fibrillation D iscussion: Stable with new meds Follow Up: 1 months ICD-9 : 427.31 ICD-10 : I48.0 12/26/2019 Visit Diagnosis Plan: Essential hypertension Discussio n: Stable ICD-9 : 401.9 ICD-10 : I10 12/26/2019 Appointment: Cony Poole WPtel: [address] [place], [place] [phone] Hospital Follow Up 12/26/2019 Appointment: Cony Poole WPtel: [address] [phone] US CANCELED 12/25/2019 Visit [...] : I50.9 11/27/2019 Appointment: Apoorva Rueda [address] [place], [place] [phone] FOLLOW UP 11/27/2019 Visit Diagnosis Plan: Hypotension Discussion: Decrease amlodopine to once daily Monitor home BP/pulse and report readings in 2 weeks ICD-9 : 458.9 ICD-10 : I95.9 11/09/2019 Visit Diagnosis Plan: Urinary tract infection Discussi on: Cefdinir Culture urine ICD-9 : 599.0 ICD-10 : N39.0 11/09/2019 Appointment: Apoorva Rueda [address] [facility] CANCELED 11/09/2019 Appointment: Cony Poole WPtel: [address] [phone] ACUTE ILLNESS 11/09/2019 Patient Education: cefdinir- [employer] Coupon [id number] [email or web address] Completed 11/09/2019 Visit Diagnosis Plan: Left leg swelling Discussion: St at LLE doppler now ICD-9 : 729.81 ICD-10 : M79.89 10/10/2019 Appointment: Cony Poole WPtel: [address] [place] [address] ACUTE ILLNESS 10/10/2019 Visit Diagnosis Plan: Muscle spasm Discussion: Can use tylenol 325mg po TID Topical muscle rub Baclofen 10mg 1/2-1 po q HS for spasm but hold temazepam while taking Notify if worsening or persists Stretches/Moist Heat ICD-9 : 728.85 ICD-10 : M62.838 08/25/2019 Appointment: Cony Poole WPtel: [address] [place] [address] TELEMEDICINE 08/25/2019 Patient Education: baclofen- [employer] Coupon [id number] [email or web address] Completed 08/25/2019 Visit Diagnosis Plan: Low back pain Discussion: Check L/S spine x-rays ICD-9 : 724.2 ICD-10 : M54.5 07/13/2019 Visit Diagnosis Plan: Sciatica of left side Discussion : Will likely start with PT pending x-ray results ICD-9 : 724.3 ICD-10 : M54.32 07/13/2019 Appointment: Cony Poole WPtel: [address] [place], [place] [address] ACUTE ILLNESS 07/13/2019 Care Plan: X-RAY EXAM L-S SPINE 2/3 VWS LOINC : 85487-6 Pending 07/13/2019 Visit Diagnosis Plan: Pneumonia due to infectious orga nism Discussion: Repeat rocephin 1gm IM today Start cefdinir tomorrow To ER this weekend if worsens ICD-9 : 486 ICD-10 : J18.9 05/18/2019 Appointment: Cony Poole WPtel: [address] [place], [place] [phone] US FOLLOW UP 05/18/2019 Patient Education: cefdinir- [employer] Coupon [id number] https://www.[employer]/Homeforswap/resources/getResource/61/0k00v47o-67k4-78x5-o6 Completed 05/18/2019 Patient Education: temazepam- [employer] Coupon [id number] https://www.[employer]/Homeforswap/resources/getResource/61/fo0z39bb-5329-6fp2-5b Completed 05/18/2019 Patient Education: Synthroid- [employer] Coupon [id number] https://www.[employer]/Homeforswap/resources/getResource/61/58874yyn-ts03-3i04-79 Completed 05/18/2019 Patient Education: Cytomel- [employer] Coupon [id number] https://www.[employer]/Homeforswap/resources/getResource/61/ti75da03-828n-742f-w2 Completed 05/18/2019 Visit Diagnosis Plan: Pneumonia due to infectious orga nism Discussion: Rocephin 1gm IM now Recheck tomorrow ICD-9 : 486 ICD-10 : J18.9 05/17/2019 Appointment: Cony Poole WPtel: [address] [place], [place] [phone] US FOLLOW UP 05/17/2019 Appointment: Cony Poole WPtel: [address] [place], [place] [phone] 05/10/19 1630---see note in chart related to throat culture (km) CANCELED 05/10/2019 Appointment: Cony Poole WPtel: [address] [place] [address] 05/08/2019 Appointment: Cony Poole WPtel: [address] [place], [place] [address] NURSE SERVICES 05/08/2019 Visit Diagnosis Plan: Stomatitis [...] : N39.0 04/24/2019 Appointment: Cony Poole WPtel: [address] [place] [address] FOLLOW UP 04/24/2019 Patient Education: nystatin- [employer] Coupon [id number] https://www.[employer]/Homeforswap/resources/getResource/61/r442785k-x097-4z3n-v1 Completed 04/24/2019 Appointment: Cony Poole WPtel: [address] [place], [place] [address] [facility] 04/21/2019 Visit Diagnosis Plan: Stomatitis and mucositis with ch bry of taste Discussion: Diflucan and nystatin susp Discussed oral biopsy ICD-9 : 528.00 ICD-10 : K12.1 04/10/2019 Appointment: Cony Poole WPtel: [address] [place] [address] ACUTE ILLNESS 04/10/2019 Patient Education: nystatin- [employer] Coupon [id number] https://www.[employer]/Homeforswap/resources/getResource/61/2uqzad32-95d6-9649-go Completed 04/10/2019 Appointment: Cony Poole WPtel: [address] [place], [place] [phone] US INJECTION 03/02/2019 Patient Education: INFLUENZA VACCINE [...] : R35.1 02/16/2019 Appointment: Cony Poole WPtel: [address] [place] [address] ACUTE ILLNESS 02/16/2019 Appointment: Cony Poole WPtel: [address] [place], [place] [phone] NO SHOW - FORGIVEN 02/15/2019 Appointment: Cony Poole WPtel: [address] [place] [address] BP CHECK 01/24/2019 Visit Diagnosis Plan: Acute upper respiratory infectio n, unspecified Discussion: cefdinir bid for 7 days. instructed to continue with allergy medications daily. call or rtc with new or worsening symptoms. ICD-9 : 465.9 ICD-10 : J06.9 12/20/2018 Appointment: Apoorva Rueda [address] [place], [place] [address]a [address] ACUTE ILLNESS 12/20/2018 Visit Diagnosis Plan: Impacted cerumen, right ear Disc ussion: ear canal cleaned out with lavage. patient tolerated well and had immediate relief of hearing loss. no issues voiced. ICD-9 : 380.4 ICD-10 : H61.21 12/14/2018 Appointment: Apoorva Rueda [address] [place], [place] [address] ACUTE ILLNESS 12/14/2018 Visit Diagnosis Plan: Essential [...] : I48.0 12/12/2018 Appointment: Cony Poole WPtel: [address] [place] [address] [place] FOLLOW UP 12/12/2018 Visit Diagnosis Plan: Essential (primary) hypertension Discussion: Stable Patient sees cardiology next week--has been off sotalol since 09/15/18 and BP and pulse have been stable ICD-9 : 401.9 ICD-10 : I10 10/19/2018 Appointment: Cony Poole WPtel: [address] [place], [place] [phone] FOLLOW UP 10/19/2018 Appointment: Cony Poole WPtel: [address] [place] [phone] US BP CHECK 10/13/2018 Visit Diagnosis Plan: Allergic rhinitis due to pollen Discussion: Continue zyrtec ICD-9 : 477.9 ICD-10 : J30.1 10/05/2018 Visit Diagnosis Plan: Essential (primary) hypertension Discussion: Stable Recheck 2 weeks ICD-9 : 401.9 ICD-10 : I10 10/05/2018 Appointment: Cony Poole WPtel: [address] [place] [phone] US FOLLOW UP 10/05/2018 Patient Education: Synthroid- OptimizeRX Coupon [id number] https://www.[employer]/sampleCarDomain Network/resources/getResource/61/fyc79236-t526-3438-19 Completed 10/05/2018 Visit Diagnosis Plan: Allergic rhinitis due to pollen Discussion: Continue zyrtec Finish prednisone ICD-9 : 477.9 ICD-10 : J30.1 09/28/2018 Visit Diagnosis Plan: Hematuria, unspecified Discussio n: Recheck UA with microscopy in 1 week then fwup ICD-9 : 599.70 ICD-10 : R31.9 09/28/2018 Appointment: Cony Poole WPtel: [phone] US FOLLOW UP 09/28/2018 Visit Diagnosis [...] : K59.01 09/26/2018 Appointment: Cony Poole WPtel: [phone] US FOLLOW UP 09/26/2018 Visit Diagnosis [...] ICD-10 : J20.9 09/23/2018 Appointment: Merry Diaz [facility] [place] [facility] [address] FOLLOW UP 09/23/2018 Patient Education: cefdinir- [employer] Coupon [id number] https://www.[employer]/samplemd/resources/getResource/61/8ld1g2ij-7740-9i30-z1 Completed 09/23/2018 Visit Diagnosis Plan: Acute bronchitis, unspecified Di scussion: Rocephin today Go for CXR Flu negative Recheck tomorrow ICD-9 : 466.0 ICD-10 : J20.9 09/22/2018 Appointment: Cony Poole WPtel: [address] [place], [place] [phone] FOLLOW UP 09/22/2018 Visit Diagnosis Plan: Tachycardia, [...] ICD-10 : R30.0 09/20/2018 Appointment: Merry Diaz [facility] [employer] [address] ACUTE ILLNESS 09/20/2018 Visit Diagnosis Plan: Other fatigue Discussion: Hold s otalol Add B12 500mcg daily as B12 in low normal range Fwup 1 week ICD-9 : 780.79 ICD-10 : R53.83 09/15/2018 Visit Diagnosis Plan: Hypothyroidism, unspecified Disc ussion: Decrease Synthroid to 50mcg daily ICD-9 : 244.9 ICD-10 : E03.9 09/15/2018 Appointment: Cony Poole WPtel: [address] [place], [place] [phone] FOLLOW UP 09/15/2018 Appointment: Cony Poole WPtel: [address] [place] [phone] UA 09/14/2018 Visit Diagnosis Plan: Chronic fatigue, unspecified Dis cussion: I think her sotalol may be a big factor so will start with updated lab and if it is normal then will hold sotalol and fwup in 1 week ICD-9 : 780.79 ICD-10 : R53.82 09/08/2018 Appointment: Cony Poole WPtel: [facility] [address] ACUTE ILLNESS 09/08/2018 Visit Diagnosis Plan: Dysuria Discussion: UA- positive for leuks, hematuria, nitrates. Will start patient on Macrobid and culture urine. Will call patient with results of culture. RTC with worsening symptoms, including fever, increased pain, abdominal pain. Patient states understanding. ICD-9 : 788.1 ICD-10 : R30.0 09/05/2018 Appointment: Merry Diaz [address] ACUTE ILLNESS 09/05/2018 Care Plan: RML ASSAY THYROID STIM HORMONE Pending 05/26/2018 Care Plan: RML ASSAY OF FREE THYROXINE Pe nding 05/26/2018 Appointment: Cony Poole WPtel: [address] [place], [place] [phone] UA 04/20/2018 Appointment: Cony Poole WPtel: [address] [place], [place] [address] BP CHECK 04/13/2018 Visit Diagnosis Plan: Impacted cerumen, right ear Disc ussion: cerumen removed with irrigation and lavage. patient tolerated well and had immediate relief. ICD-9 : 380.4 ICD-10 : H61.21 03/18/2018 Appointment: Apoorva Rueda [address] ACUTE ILLNESS 03/18/2018 Patient Education: Patient [...] Appointment: Cony Poole WPtel: [address] [id number] FOLLOW UP 03/03/2018 Patient Education: Patient Medication Summary Completed 03/03/2018 Visit Diagnosis Plan: Atopic dermatitis, unspecified D iscussion: instructed to apply triamcinolone bid for 2 weeks, until follow up. follow with your normal lotion and cover with compression hose. if worsening or no improvement, call clinic. ICD-9 : 691.8 ICD-10 : L20.9 02/16/2018 Appointment: Apoorva Rueda [address] [place] [address] ACUTE ILLNESS 02/16/2018 Patient Education: Patient Medication [...] ICD-10 : L89.611 01/26/2018 Appointment: Apoorva Rueda [address] [place] [address] ACUTE ILLNESS 01/26/2018 Patient Education: Patient Medication [...] I10 11/30/2017 Appointment: Cony Poole WPtel: [address] [phone] FOLLOW UP 11/30/2017 Patient Education: Patient Medication Summary Completed 11/30/2017 Visit Diagnosis Plan: Other seborrheic keratosis Discu ssion: Monitor ICD-9 : 702.19 ICD-10 : L82.1 11/04/2017 Appointment: Cony Poole WPtel: [phone] [place] Consult 11/04/2017 Patient Education: Patient Medication Summary Completed 11/04/2017 Visit Diagnosis Plan: Achilles tendinitis, right leg D iscussion: educated patient on RICE and the importance of performing all these activities. 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 to assist [...] ICD-10 : M76.61 10/20/2017 Appointment: Apoorva Rueda [address] [place] [address] ACUTE ILLNESS 10/20/2017 Patient Education: Patient Medication Summary Completed 10/20/2017 Visit Diagnosis Plan: Essential (primary) hypertension Discussion: Stable ICD-9 : 401.9 ICD-10 : I10 08/30/2017 Visit Diagnosis Plan: Weakness Discussion: Check Cervi gerri spine x-ray due to primarily being in upper arms ICD-9 : 780.79 ICD-10 : R53.1 08/30/2017 Appointment: Cony Poole WPtel: [phone] FOLLOW UP 08/30/2017 Patient Education: Patient Medication Summary Completed 08/30/2017 Care Plan: X-RAY EXAM NECK SPINE 4/5VWS LOINC : 94759-6 Pending 08/30/2017 Patient Education: Patient Medication Summary Completed 08/13/2017 Care Plan: DXA BONE DENSITY AXIAL LOINC : 87891-8 Pending 08/13/2017 Patient Education: Patient Medication Summary Completed 07/01/2017 Care Plan: RML COMPREHEN METABOLIC PANEL LOINC : 42530-6 Pending 07/01/2017 Care Plan: RML ASSAY THYROID STIM HORMONE Pending 07/01/2017 Care Plan: RML ASSAY OF FREE THYROXINE Pe nding 07/01/2017 Care Plan: RML LIPID PANEL LOINC : 42777 -1 Pending 07/01/2017 Care Plan: CBC Pending [...] E03.9 05/25/2017 [facility]ment[facility]el[phone] [facility] FO[facility] 05/25/2017 Patient Education: Patient [...] I10 03/22/2017 Appointment: [facility]Ptel[phone] [place] FOLLOW UP 03/22/2017 Patient Education: Patient Medication Summary Completed 03/22/2017 Patient Education: Patient Medication Summary Completed 03/17/2017 Care Plan: RML ASSAY THYROID STIM HORMONE Pending 03/17/2017 Care Plan: RML ASSAY OF FREE THYROXINE Pe nding 03/17/2017 Care Plan: METABOLIC PANEL TOTAL CA LOIN C : 48150-6 Pending 03/17/2017 Appointment: Cony Poole WPtel: [address] [place], [place] [phone] US INJECTION 03/08/2017 Patient Education: Patient Medication Summary Completed 03/08/2017 Visit Diagnosis Plan: Hypothyroidism, unspecified Disc ussion: Increase synthroid to 75mcg daily and recheck 2mos Follow Up: 2 months ICD-9 : 244.9 ICD-10 : E03.9 01/18/2017 Visit Diagnosis Plan: Essential (primary) hypertension Discussion: Stable with current meds ICD-9 : 401.9 ICD-10 : I10 01/18/2017 Appointment: Cony Poole WPtel: [address] [place], [place] [phone] [place] 01/14lm~sl FOLLOW UP 01/18/2017 Patient Education: Patient Medication Summary Completed 01/18/2017 Appointment: Cony Poole WPtel: [address] [place], [place] [phone] BP CHECK 01/11/2017 Patient Education: Patient Medication Summary Completed 01/11/2017 Patient Education: Patient Medication Summary Completed 01/11/2017 Care Plan: RML ASSAY THYROID STIM HORMONE Pending 01/11/2017 Care Plan: RML ASSAY OF FREE THYROXINE Pe nding 01/11/2017 Appointment: Cony Poole WPtel: [address] [place], [place] [phone] US BP CHECK 01/04/2017 Patient Education: Patient Medication Summary Completed 01/04/2017 Appointment: Cony Poole WPtel: [address] [place], [place] [phone] US BP CHECK 12/28/2016 Patient Education: Patient Medication Summary Completed 12/28/2016 Appointment: Cony Poole WPtel: [address] [place], [place] [phone] BP CHECK 12/24/2016 Patient Education: Patient Medication Summary Completed 12/24/2016 Visit Diagnosis Plan: Hypotension, unspecified Discuss ion: Tashi fuentes Decrease HCTZ to 12.5mg q AM BP check in 1 week ICD-9 : 458.9 ICD-10 : I95.9 12/16/2016 Visit Diagnosis Plan: Localized edema Discussion: Decr ease HCTZ to 12.5mg q AM ICD-9 : 782.3 ICD-10 : R60.0 12/16/2016 Appointment: Cony Poole WPtel: [phone] ACUTE ILLNESS 12/16/2016 Patient Education: Patient [...] : E03.9 11/18/2016 Appointment: Cony Poole WPtel: [phone] 11/17 lm ~sl 11/18 confirmed~sl FOLLOW [...] : E03.9 11/04/2016 Appointment: Cony Poole WPtel: [address] [place], [place] [phone] 11/03 confirmed `sl FOLLOW UP 11/04/2016 Patient Education: Patient Medication Summary Completed 11/04/2016 Visit Diagnosis Plan: Hypotension due to drugs Discuss ion: Hydrate Hold Losartan tonight then decrease to 50mg q HS BP check in 1 week ICD-9 : 458.8 ICD-10 : I95.2 10/27/2016 Appointment: Cony Poole WPtel: [address] [place], [place] [phone] 10/26 Confirmed~sl FOLLOW UP 10/27/2016 Patient Education: Patient Medication Summary Completed 10/27/2016 Appointment: Cony Poole WPtel: [address] [place], [place] [phone] UA 10/26/2016 Patient Education: Patient Medication Summary Completed 10/26/2016 Visit Diagnosis Plan: Cellulitis of left lower limb Di scussion: Finish Clindamycin Follow Up: 2 weeks ICD-9 : 682.6 ICD-10 : L03.116 10/13/2016 Appointment: Cony Poole WPtel: [address] [place], [place] [phone] 10/12 lm-sp WORK IN 10/13/2016 Patient Education: Patient Medication Summary Completed 10/13/2016 Visit Diagnosis Plan: Cellulitis of left lower limb Di scussion: Change keflex to clindamycin Add prednisone Continue compression socks and elevate ICD-9 : 682.6 ICD-10 : L03.116 10/08/2016 Appointment: Cony Poole WPtel: [phone] 10/07 lm~sl 10/08 confirmed`sl FOLLOW UP [...] L03.116 10/05/2016 Appointment: Con[facility] Poole [facility]Ptel[phone] 10/01 confirmed `sl FOLLOW UP 10/05/2016 Patient [...] METABOLIC PANEL TOTAL CA LOIN C : 96430-7 Pending 09/30/2016 Visit Diagnosis Plan: Other fatigue [...] I10 08/25/2016 Appointment: Cony Poole [facility]Ptel[phone] 08/24 confirmed~sl FOLLOW UP 08/25/2016 Patient Education: Patient Medication Summary Completed 08/25/2016 Appointment: Cony Poole [facility]Ptel[facility] [facility] 07/30 rescheduled~sl RESCHEDULED 08/19/2016 Patient Education: Patient Medication Summary Completed 08/19/2016 Care Plan: RML COMPREHEN METABOLIC PANEL LOINC : 97302-4 Pending 08/19/2016 Care Plan: CBC Pending 08/19/2016 [...] : I10 07/28/2016 Appointment: Cony Poole WPtel: [address] [place], [place] [phone] [place] [address] 07/27 confirmed~sl ACUTE ILLNESS 07/28/2016 Patient Education: Patient Medication Summary Completed 07/28/2016 Patient Education: Patient Medication Summary Completed 07/06/2016 Care Plan: RML ASSAY THYROID STIM HORMONE Pending 07/06/2016 Care Plan: RML ASSAY OF FREE THYROXINE Pe nding 07/06/2016 Appointment: Cony Poole WPtel: [address] [place], [place] [phone] BP CHECK 06/25/2016 Patient Education: Patient Medication Summary Completed 06/25/2016 Patient Education: Patient Medication Summary Completed 06/25/2016 Care Plan: CBC Pending 06/25/2016 Care Plan: URINALYSIS AUTO W/[place] : 00647-1 Pending 06/25/2016 Visit Diagnosis Plan: Essential (primary) hypertension Discussion: Discussed with Dr Poole Increase HCTZ as above Check CMP in 1-2 weeks Patient to call Dr Noble for follow up with him, 1-2 weeks and management of her HTN ICD-9 : 401.9 ICD-10 : I10 06/23/2016 Appointment: Merle Hernandez [address] [place] [address] ACUTE ILLNESS 06/23/2016 Patient Education: Patient Medication [...] plan and agrees 06/03/2016 Appointment: Merle Hernandez [address] [place] [address] ACUTE ILLNESS 06/03/2016 Patient Education: Patient Medication Summary Completed 06/03/2016 Visit Plan: Exam is fairly benign Flu ra n since her symptoms had such a sudden onset - results negative Likely viral URI Supportive care reviewed Monitor closely Follow up PRN 05/26/2016 Appointment: Merle Hernandez [address] [place], [place] [phone] ACUTE ILLNESS 05/26/2016 Patient Education: Patient Medication Summary Completed 05/26/2016 Visit Plan: Continue current meds and mo nitor BP Continue temazepam at current dose--discussed risks but patient feels much better since getting good rest Check CBC, CMP, TSH, Free T4 05/20/2016 Appointment: Cony Poole WPtel: [address] [place], [place] [phone] 05/19 confirmed~sl FOLLOW UP 05/20/2016 Patient Education: Patient Medication Summary Completed 05/20/2016 Appointment: Cony Poole WPtel: [phone] US CANCELED 04/07/2016 Visit Plan: Check right ankle x-ray Disc ussed may need veins in right ankle worked on if swelling/pain persist 03/19/2016 Appointment: Cony Pooletel: [address] [place], [place] [phone] ACUTE ILLNESS 03/19/2016 Patient Education: Patient Medication Summary Completed 03/19/2016 Visit Plan: Increase HCTZ to 12.5mg po e very day Recheck Chem [address] Noble next week to discuss antiarrhythmic meds Prevnar 13 today 01/13/2016 Appointment: Cony Pooletel: [address] [place], [place] [phone] 01/08 confirmed-sp FOLLOW UP 01/13/2016 Patient Education: Patient Medication Summary Completed 01/13/2016 Visit Plan: Continue current meds and mo nitor BP Check Chem 7 12/12/2015 Appointment: Cony Poole WPtel: [address] [place], [place] [phone] /6confirmed sl FOLLOW UP 12/12/2015 Patient Education: Patient Medication Summary Completed 12/12/2015 Appointment: Cony Poole WPtel: [address] [place], [place] [phone] RESCHEDULED 12/10/2015 Visit Plan: Add Restoril 15mg q HS--stuart ent used in hospital with no complications Add back low dose HCTZ at 12.5mg every other day Monitor BP Can hold on nebulizer treatments Check Chem 7 now and recheck 1week 12/05/2015 Appointment: Cony Poole WPtel: [address] [place], [place] [phone] 12/02 confirmed~sl ER Follow UP 12/05/2015 Patient Education: Patient Medication Summary Completed 12/05/2015 Appointment: Cony Poole WPtel: [address] [place], [place] [phone] WORK IN 11/28/2015 Visit Plan: Due to patient's symptoms an d high blood pressure I consulted . Outpatient orders written for 1L IV fluids with 1G Rocephin and Zofran for nausea. Patient sent to hospital and followup in am. 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 Keep BP log and follow up PRN 10/21/2015 Appointment: [facility] [facility] 10/21/2015 Patient Education: Patient Medication Summary Completed 10/21/2015 Visit Plan: Stop amlodopine Increase met oprolol to to 50mg q HS and 25mg in AM Switch cozaar to 100mg daily as the insurance does not want to pay for 50mg BID dosing Low Na diet and elevate legs See Cardiology 10/17/2015 Appointment: Cony Poole WPtel: [phone] [phone] 5/11confirm~sl FOLLOW UP 10/17/2015 Patient Education: Patient Medication Summary Completed 10/17/2015 Visit Plan: Pt to bring in home BP/HR lo g for review Orders given for CBC, CMP, TSH, MG and 48 holter for further evaluation 10/07/2015 Appointment: Merle Hernandez [address] [place] [address] ACUTE ILLNESS 10/07/2015 Patient Education: Patient Medication Summary Completed 10/07/2015 Visit Plan: Cold vs Allergies Continue z yrtec and nasacort Add steroid pack as above Add plain mucinex, nasal rinses, vicks, humidifier, etc Call if not improving or if worsening - will likely add zpak 09/03/2015 Appointment: Merle Hernandez [address] [place], [place] [address] 09/03/2015 Patient Education: Patient Medication Summary Completed 09/03/2015 Visit Plan: BP values reviewed Change me toprolol to 12.5mg po BID BP values in 1month 08/01/2015 Appointment: Cony Poole WPtel: [address] [place], [place] [phone] 07/31 confirmed-SP FOLLOW UP 08/01/2015 Patient Education: Patient Medication Summary Completed 08/01/2015 Visit Plan: Had lab in the fall--shanelle jennifer ain copy and plan on repeat lab 6mos from last lab then fwup after that Continue current meds Mammogram up-to-date 06/27/2015 Appointment: Cony Poole WPtel: [address] [place], [place] [phone] 06/26/15 appt confirmed cn NEW PATIENT 06/27 Patient Education: Patient Medication Summary Completed 06/27/2015 Referral: Donald Noble WPtel: [facility] [address] [id number] [place] Referral Initiated Instructions Comment Date . [...] . 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
[2022-11-09] MEDS ORDERED: HYDR-3922 PO (15:35)
--- OUTSIDE RECORDS SUMMARY | 2022-11-09 15:37 | XMS REPORT | Encounter Summary ---
Author Author [facility] Organization [facility] Address Unknown Phone Unavailable Care Team Providers Care Wastewater Treatment Operator Name Role Phone Cony Poole MD PCP Encounter Details Care Team Description Date Type Department Discharge Disposition: Home or Self Care 10/20/2022 Hospital Cardiovascular [facility] cine 3:37 PM Encounter Remote Device Check CDT - [phone] 10/20/2022 11:59 PM CDT Social History Date [...] and Gender Information Value 06/19/2022 10:19 AM DISPUTE SPECIALIST Sex Assigned at Female 06/19/2022 10:19 AM DISPUTE SPECIALIST Gender Identity Female 06/19/2022 10:19 AM DISPUTE SPECIALIST Sexual Orientation Straight documented as of [...] encounter Care Teams Start Date End Date Wastewater Treatment Operator Relationship Specialty 05/15/22 Cony Poole MD PCP - General Family [address] [address] documented as of this encounter
--- OUTSIDE RECORDS SUMMARY | 2022-11-09 15:37 | XMS REPORT | Encounter Summary ---
Author Author [facility] Organization [facility] Address Unknown Phone Unavailable Care Team Providers Care Dean Name Role Phone Cony Poole MD PCP Reason for Visit * Reason Onset Date Comments Follow-up Phone Call 11/09/2022 Encounter Details Care Team Description Date Type Department Mckenna Kulkarni RN Follow-up Phone Call 11/09/2022 Telephone Cardiology: [facility] [address] [place] [address] Social History Date Tobacco Use [...] and Gender Information Value 06/19/2022 10:19 AM MATERIAL ASSISTANT Sex Assigned at Female 06/19/2022 10:19 AM MATERIAL ASSISTANT Gender Identity Female 06/19/2022 10:19 AM MATERIAL ASSISTANT Sexual Orientation Straight documented as of this encounter Miscellaneous Notes * Telephone Encounter - Adriana Fajardo BSN - 11/09/2022 3:07 PM CDT ILR reports faxed at this time. * Telephone Encounter - Mckenna Kulkarni RN - 11/09/2022 9:05 AM CDT Called Richard at Dr. Smith office, pt is hospitalized for syncopal episode in [place], [place] and they would like a copy of the device transmission reports faxed to them at [phone].The reports have not yet uploaded to chart, I have reach ed out to the device team for assistance. * Telephone Encounter - Mckenna Kulkarni RN - 11/09/2022 9:05 AM CDT Richard from Dr. Smith office called wanting to speak to MPE Nurse about [place] at[facility]. Please call her @ [phone] * Telephone Encounter - Mckenna Kulkarni RN [...] encounter Care Teams Start Date End Date Dean Relationship Specialty 05/15/22 Cony Poole MD PCP - General Family [facility] [address] [place] [place] [id number] documented as of this encounter
--- NOTE | 2022-11-09 15:55 | Physical Therapy Evaluation ---
PT Evaluation-General Medical Diagnosis Admission Date Nov 09, 2022 at 14:51 Medical Diagnosis: myopathy; cardiac Onset Date: Nov 08, 2022 Therapy Diagnosis Therapy Diagnosis: Decreased strength; Decreased functional mobility Height/Weight Height (Feet): 5 Height (Inches): 3.50 Weight (Pounds): 157 Weight (Ounces): 0.9 Precautions Precautions/Isolations: Fall Prevention, Standard Precautions Weight Bear Status Right Lower Extremity: Right Full Weight Bearing Full Weight Bearing Referral Physician: Cassidy Reason for Referral: Evaluation/Treatment Medical History Pertinent Medical History: Atrial Fib, COPD, Heart Failure, HTN, Hypothroidism Additional Medical History A-fib, HTN, hypothyroidism, scoliosis, anxiety Current History ED on 11/08/22 due to tunnel vision, near syncope. Transfer to CTU 11/09/22 Reviewed History: No Social History Home: Single Level Current Living Status: Alone Entry Into Home: Stairs With Railing PT Steps Into Home: 4 Pt reports that she lives at home, alone, in a 1 story home wiht 3-4 steps to enter with 1 HR. Pt reports she has a walk-in shower with built in seat, and grab bars. Prior Prior Level of Function SCALE: Activities may be completed with or without assistive devices. 3-Vghkawmwpn-vfpmlpz completes the activity by him/herself with no assistance from a helper. 5-Set-up or Clean-up Assistance-helper sets up or cleans up; patient completes activity. [place] assists only prior to or following the activity. 4-Supervision or Touching Assistance-helper provides verbal cues and/or touching/steadying and/or contact guard assistance as patient completes activity. Assistance may be provided throughout the activity or intermittently. 3-Partial/Moderate Assistance-helper does LESS THAN HALF the effort. [place] lifts, holds or supports trunk or limbs, but provides less than half the effort. 2-Substantial/Maximal Assistance-helper does MORE THAN HALF the effort. [place] lifts or holds trunk or limbs and provides more than half the effort. 5-Gvmxxxszu-qpheth does ALL the effort. Patient does none of the effort to complete the activity. Or, the assistance of 2 or more helpers is required for the patient to complete the activity. If activity was not attempted, code reason: 7-Patient Refused. 9-Not Applicable-not attempted and the patient did not perform the activity before the current illness, exacerbation or injury. 10-Not Attempted due to Environmental Limitations-(lack of equipment, weather restraints, etc.). 88-Not Attempted due to Medical Conditions or Safety Concerns. Bed Mobility: 6 Transfers (B,C,W/C): 6 Gait: 6 Stairs: 6 Wheelchair Mobility: 9 Indoor Mobility (Ambulation): Independent Stairs: Independent Prior Devices Use: Other-see list below Prior Device Use: SPC At [facility], pt was Ind with no AD and driving. Pt does report that she just got, and started using a SPC, on 10/29/2022. Pt reports she has a SPC, FWW, and BSC. PT Evaluation-Current Subjective Pt is agreeable to PT eval and treatment. Pt denies any pain at this time. Pain Numeric Pain Scale: 0-No Pain Location: No Pain Reported Section J - Health Conditions 1. Rarely or not at all 2. Occasionally 3. Frequently 4. Almost constantly 8. Unable to answer Pain Effect on Sleep: 1 Pain Interference with Therapy: 1 Pain Interference w/Day-to-Day: 1 Pt/Family Goals Safely return home at [facility] Objective Patient Orientation: Person, Place, Time, Situation ROM/Strength ROM Upper Extremities WFL ROM Lower Extremities WLF Strength Upper Extremities WFL Strength Lower Extremities B LE MMT = 4-/5 grossly Integumentary/Posture Integumentary bruising on L side Bowel Incontinence: No Bladder Incontinence: No Sensory Vision: Wears Glasses Hearing: Hearing Aid/Aides (did not bring to hospital; pt afraid to lose them) Hand Dominance: Left Sensation Right Upper Extremit: Intact Sensation Left Upper Extremity: Intact Sensation Right Lower Extremit: Intact Sensation Left Lower Extremity: Intact Transfers Roll Left & Right (QC): 4 (SBA) Sit to Lying (QC): 4 (SBA) Lying to Sitting/Side of Bed(Q: 4 (SBA) Sit to Stand (QC): 4 (CGA) Chair/Pcl-dl-Obval Xfer(QC): 4 (CGA) Toilet Transfer (QC): 4 (CGA) Car Transfer (QC): 4 (CGA) Gait Does the Patient Walk?: Yes Mode of Locomotion: Walk Anticipated Mode of Locomotion: Walk Walk 10 feet (QC): 4 (CGA) Walk 50 ft with 2 Turns(QC): 4 (CGA) Walk 150 ft (QC): 4 (CGA) Walking 10ft/uneven surface-QC: 4 (CGA) Distance: 150ft Gait Assistive Device: FWW Wheelchair Training Does the Pt Use a Wheelchair?: No Wheel 50 ft with 2 turns (QC): 9 Wheel 150 ft (QC): 9 Type of Wheelchair: N/A Stairs #of Steps: 12 1 Step (curb) (QC): 4 (CGA) 4 Steps (QC): 4 (CGA) 12 Steps (QC): 4 (CGA) Balance Sitting Static: Normal Sitting Dynamic: Normal Standing Static: Good Standing Dynamic: Good Picking up an Object (QC): 4 (CGA) Special Test Comments [facility]U standing balance scale = 4/5 (goal = 5/5) Treatment PT eval completed. PT/OT co-tx due to skill of 2 clinicians required which a breeding technician could not perform in order to coordinate UE/LEs, decrease fall risk, and due to pt's limitations in strength, activity tolerance, and mobility. Pt completed functional mobility/transfers including bed mobility, toilet transfer, functional mobility using FWW, stairs, car transfer. Shower completed. Pt edu completed Assessment/Needs Pt tolerated PT eval and PT/OT co-tx well Rehab Potential: Good Post Rehab Potential-Barriers: Weakness PT Contracts Representative Goals Contracts Representative Goals PT Contracts Representative Goals Time Frame: Nov 19, 2022 Roll Left to Right (QC): 6 (Pt will be Mod I with functional mobility, with least restrictive AD, in order to be at PLOF. ) Sit to Lying (QC): 6 (Pt will be Mod I with functional mobility, with least r estrictive AD, in order to be at PLOF. ) Lying-Sitting on Side/Bed(QC): 6 (Pt will be Mod I with functional mobility, with least restrictive AD, in order to be at PLOF. ) Sit to Stand (QC): 6 (Pt will be Mod I with functional mobility, with least restrictive AD, in order to be at PLOF. ) Chair/Flk-wz-Trsur Xfer(QC): 6 (Pt will be Mod I with functional mobility, with least restrictive AD, in order to be at PLOF. ) Toilet/Commode Transfer (QC): 6 (Pt will be Mod I with functional mobility, with least restrictive AD, in order to be at PLOF. ) Car Transfer (QC): 6 (Pt will be Mod I with functional mobility, with least restrictive AD, in order to be at PLOF. ) Does the Patient Walk: Yes Walk 10 feet (QC): 6 (Pt will be Mod I with functional mobility, with least restrictive AD, in order to be at PLOF. ) Walk 10ft-Uneven Surface(QC): 6 (Pt will be Mod I with functional mobility, with least restrictive AD, in order to be at PLOF. ) Walk 50ft with 2 Turns (QC): 6 (Pt will be Mod I with functional mobility, with least restrictive AD, in order to be at PLOF. ) Walk 150 ft (QC): 6 (Pt will be Mod I with functional mobility, with least restrictive AD, in order to be at PLOF. ) Does the Pt use WC or Scooter?: No Wheel 50 feet with 2 turns (QC: 9 Type: N/A Wheel 150 feet: 9 Type: N/A 1 Step (curb) (QC): 6 (Pt will be Mod I with functional mobility, with least restrictive AD, in order to be at PLOF. ) 4 Steps (QC): 6 (Pt will be Mod I with functional mobility, with least restrictive AD, in order to be at PLOF. ) 12 Steps (QC): 6 (Pt will be Mod I with functional mobility, with least restrictive AD, in order to be at PLOF. ) Picking up an Object (QC): 6 (Pt will be Mod I with functional mobility, with least restrictive AD, in order to be at PLOF. ) KU standing balance scale goal: 5/5 PT Plan Problem List Problem List: Activity Tolerance, Functional Strength, Safety, Balance, Gait, Transfer, Bed Mobility Treatment/Plan Treatment Plan: Continue Plan of Care Treatment Plan: Bed Mobility, Concurrent Therapy, Education, Functional Activity Samy, Functional Strength, Group Therapy, Gait, Safety, Therapeutic Exercise, Transfers Treatment Duration: Nov 19, 2022 Frequency: At least 5 of 7 days/Wk (IRF) Estimated Hrs Per Day: 1.5 hours per day Patient and/or Family Agrees t: Yes Safety Risks/Education Patient Education: Gait Training, Transfer Techniques, Steps, Safety Issues Teaching Recipient: Patient Teaching Methods: Demonstration, Discussion Response to Teaching: Verbalize Understanding, Return Demonstration, Reinforcement Needed Discharge Recommendations Plan Pt would benefit from skilled PT to improve overall strength and mobility, progress back to PLOF, and safely return home Therapy Discharge Recommendati: Home & Family (home alone) Discharge Status/Home Program Cont per POC Barriers to Progress support Target Placement home alone Time Time In: 1500 Time Out: 1630 DATE: Nov 09, 2022 Total Billed Treatment Time: 90 Total Billed Treatment 90 min [id number] (PT eval) [id number] (co-tx with OT) 1 visit EVL GT x 2 FA x 3 ADALBERTO ROCHA PT Nov 09, 2022 15:55
[2022-11-09] MEDS ORDERED: diphenhydrAMINE 25 MG TAB (BENADRYL) PO PRN (19:00)
[2022-11-09] MEDS ORDERED: LACTULOSE SYRUP 10GM/15ML (ENULOSE) 30ML UDC PO PRN (19:00)
[2022-11-09] MEDS ORDERED: LOPERAMIDE 2 MG (IMODIUM) TABLET PO PRN (19:00)
[2022-11-09] MEDS ORDERED: CALCIUM CARBONATE 500 MG (TUMS) TAB.CHEW PO PRN (19:00)
[2022-11-09] MEDS ORDERED: ONDANSETRON 4 MG (ZOFRAN) ORAL DISSOLVE TAB PO PRN (19:00)
[2022-11-09] MEDS ORDERED: FLEET ENEMA ADULT 1 EA BTL PR PRN (19:00)
[2022-11-09] MEDS ORDERED: ACETAMINOPHEN 325 MG TABLET PO PRN (19:00)
[2022-11-09] MEDS ORDERED: DOCUSATE SODIUM 100 MG (COLACE) CAP PO PRN (19:00)
[2022-11-09] MEDS ORDERED: MELATONIN 3 MG TABLET PO PRN (19:00)
[2022-11-09] MEDS ORDERED: BISACODYL 10 MG SUPP (DULCOLAX) PR PRN (19:00)
[2022-11-09] MEDS ORDERED: ALPRAZolam 0.25 MG (XANAX) TAB PO PRN (19:00)
--- NOTE | 2022-11-09 19:05 | PM&R Post Admission Assessment ---
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 Apparently she had fallen on her left leg and being on anticoagulation she sustained a major hematoma and really cannot walk on the leg. The decision was made for telemetry monitoring and send down to inpatient rehab for further evaluation due to cardiac arrhythmia may very well need a pacemaker and defined as a congestive heart failure episode. Prior level of functioning was independent with all ADLs and without use of assistive devices. Past Syxdqzr-Suymxd-Tqjljr Hx Past Med/Social Hx: Reviewed Nursing Past Med/Soc Hx, Reviewed and Corrections made Patient Social History Marrital Status: single Employed/Student: retired Alcohol Use: Denies Use Smoking Status: Former Smoker Former Smoker, Quit: Nov 26, 1984 Recent Hopitalizations: No Immunizations Up To Date Tetanus Booster (TDap): Unknown Date of Pneumonia Vaccine: Jan 13, 2016 Date of Influenza Vaccine: May 28, 2021 Seasonal Allergies Seasonal Allergies: No Past Medical History Surgeries: Vascular Surgery Currently Using CPAP: No Currently Using BIPAP: No Cardiac: Atrial Fibrillation, Chronic Edema/Swelling, Hypertension Reproductive: No Genitourinary: Kidney Infection, Bladder Infection Musculoskeletal: Scoliosis Endocrine: Hypothyroidsim HEENT: Cataract Loss of Vision: Bilateral Hearing Impairment: Hard of Hearing Psychosocial: Sleep Difficulties, Anxiety History of Blood Disorders: No Adverse Reaction to Blood Drake: No Family History Asthma Colon cancer Deafness or hearing loss Diabetes mellitus Hypertension Neoplasm Thyroid disease Prior Level of Function Bed Mobility: 6 Transfers: 6 Gait: 6 Stairs: 6 Wheelchair Mobility: 9 Indoor Mobility (Ambulation): Independent Stairs: Independent Prior Devices Use: Other-see list below SPC Self Care: Independent Functional Cognition: Independent Occupation: retired. Current Level of Fuctioning Roll Left to Right: 4 (SBA) Sit to Lyin (SBA) Lying to Sitting/Side of Bed: 4 (SBA) Sit to Stand: 4 (CGA) Chair/Krf-fz-Hqunl Xfer: 4 (CGA) Car Transfer: 4 (CGA) Does the Patient Walk: Yes Mode of Locomotion: Walk Anticipated Mode of Locomotion: Walk Walk 10 feet: 4 (CGA) Walk 50 ft with 2 Turns: 4 (CGA) Walk 150 ft: 4 (CGA) Walking 10ft on uneven surface: 4 (CGA) Gait Assistive Device: FWW Does the Pt Use a Wheelchair: No Wheel 50 ft with 2 turns: 9 Wheel 150 ft: 9 Type of Wheelchair: N/A #of Steps: 12 1 Step (curb): 4 (CGA) 4 Steps: 4 (CGA) 12 Steps: 4 (CGA) Picking up an Object: 4 (CGA) Eatin Oral Hygiene: 4 (CGA) Shower/Bathe Self: 4 (CGA) Upper Body Dressin (CGA in stand) Lower Body Dressin (CGA in stand) On/Off Footwear: 4 (SBA) Toileting Hygiene: 4 (CGA) PM&R Allergy/Meds/Data Review Allergies Coded Allergies: codeine (Unverified Allergy, Mild, Vomiting, 02/18/22) adhesive tape (Unverified Allergy, Unknown, 02/18/22) amoxicillin (Unverified Allergy, Unknown, 02/18/22) Home Medications Scheduled Aspirin (Aspirin EC), 81 MG PO HS, (Reported) Atorvastatin Calcium (Atorvastatin Calcium), 20 MG PO HS, (Reported) Bifidobacterium Infantis (Align), 10.5 MG PO HS, (Reported) Cholecalciferol (Vitamin D3) (Vitamin D3), 25 MCG PO 1800, (Reported) Cholecalciferol (Vitamin D3) (Vitamin D3), 50 MCG PO DAILY, (Reported) Cyanocobalamin (Vitamin B-12) (Vitamin B-12), 500 MCG PO DAILY, (Reported) Fexofenadine HCl (Janette Allergy), 180 MG PO DAILY, (Reported) Hydralazine HCl (Hydralazine HCl), 10 MG PO BID Levothyroxine Sodium (Synthroid), 75 MCG PO MO,WE,FR, (Reported) Levothyroxine Sodium (Synthroid), 88 MCG PO CHAVEZ,,TH,SA, (Reported) Losartan Potassium (Losartan Potassium), 50 MG PO BID, (Reported) Metoprolol Succinate (Metoprolol Succinate), 100 MG PO HS, (Reported) Rivaroxaban (Xarelto Tablet), 15 MG PO 1800 W/MEAL, (Reported) Sertraline HCl (Sertraline HCl), 12.5 MG PO HS, (Reported) Scheduled PRN Acetaminophen (Tylenol), 325 MG PO Q6H PRN for PAIN-MILD (1-4), (Reported) Discontinued Medications Carboxymethyl/Gly/Poly80/Pf (Refresh Optive Abdiaziz-3 Drops), 1 DROP OU TID, (Reported) Discontinued Reason: No Longer Taking Carboxymethylcellulose Sodium (Refresh Liquigel), 1 DROP OU BID, (Reported) Discontinued Reason: No Longer Taking Cetirizine HCl (Cetirizine HCl), 10 MG PO DAILY, (Reported) Discontinued Reason: No Longer Taking Cholecalciferol (Vitamin D3) (Vitamin D3), 25 MCG PO HS, (Reported) Discontinued Reason: Prescription changed Diltiazem HCl (Diltiazem 24Hr ER), 300 MG PO DAILY@0900 Discontinued Reason: No Longer Taking Docusate Sodium (Docusate Sodium), 100 MG PO HS, (Reported) Discontinued Reason: No Longer Taking Doxazosin Mesylate (Doxazosin Mesylate), 1 MG PO BID, (Reported) Discontinued Reason: No Longer Taking Fluticasone Propionate (Flonase Allergy Relief), 2 SPRAY NSEACH HS PRN for ALLERGY SYMPTOMS, (Reported) Discontinued Reason: No Longer Taking Fluticasone/Salmeterol (Fluticasone-Salmeterol 113-14), 0 EACH IH DAILY@0800 Discontinued Reason: No Longer Taking Furosemide (Furosemide), 40 MG PO DAILY Discontinued Reason: No Longer Taking Gabapentin (Gabapentin), 200 MG PO HS Discontinued Reason: No Longer Taking Guaifenesin (Mucinex), 600 MG PO BID Discontinued Reason: No Longer Taking Lactobacillus Rhamnosus GG (Culturelle), 1 EACH PO HS, (Reported) Discontinued Reason: No Longer Taking Levothyroxine Sodium (Levothyroxine Sodium), 88 MCG PO DAILY, (Reported) Discontinued Reason: No Longer Taking Losartan Potassium (Losartan Potassium), 25 MG PO DAILY Discontinued Reason: No Longer Taking Magnesium Oxide (Magnesium), 400 MG PO Q48H, (Reported) Discontinued Reason: No Longer Taking Menthol (Biofreeze), 1 APPLIC TP TID PRN for ARTHRITIS, (Reported) Discontinued Reason: No Longer Taking Potassium Chloride (Potassium Chloride), 16 MEQ PO BID WITH MEALS Discontinued Reason: No Longer Taking Prednisone (Prednisone), 20 MG PO DAILY@0700 Discontinued Reason: No Longer Taking Sodium Chloride/Aloe Vera (Cobb Saline Nasal Gel), 1 APPLIC NS BID PRN for ALLERGY SYMPTOMS, (Reported) Discontinued Reason: No Longer Taking Tramadol HCl (Tramadol HCl), 50 MG PO TID PRN for PAIN-MODERATE (5-7) Discontinued Reason: No Longer Taking [Magic Mouthwash], 15 ML QID PRN for MOUTH PAIN, (Reported) Discontinued Reason: No Longer Taking Current Medications Current Medications Reviewed Review of Systems Constitutional: see HPI, dizziness, malaise, weakness EENTM: no symptoms reported Respiratory: no symptoms reported Cardiovascular: no symptoms reported Gastrointestinal: no symptoms reported Genitourinary: no symptoms reported Musculoskeletal: back pain, joint pain, muscle pain, muscle stiffness, muscle cramps Skin: no symptoms reported Psychiatric/Neurological: No Symptoms Reported All Other Systems Reviewed Negative Unless Noted: Yes Physical Exam Physical Exam Vital Signs Vital Signs - First Documented 11/09/22 16:42 Pulse Ox 92 Capillary Refill : Height, Weight, BMI Height: 5'3.50" Weight: 157lbs. 0.9oz. [id number]; 23.56 BMI Method: General Appearance: No Apparent Distress, WD/WN, Chronically ill, Thin Eyes: Bilateral Eye Normal Inspection, Bilateral Eye PERRL HEENT: PERRL/EOMI, Normal ENT Inspection, Pharynx Normal Neck: Full Range of Motion, Normal Inspection, Non Tender, Supple, Carotid Bruit Respiratory: Chest Non Tender, Lungs Clear, Normal Breath Sounds, No Accessory Muscle Use, No Respiratory Distress Cardiovascular: Regular Rate, Rhythm, No Edema, No Gallop, No JVD, No Murmur, Normal Peripheral Pulses Gastrointestinal: Normal Bowel Sounds, No Organomegaly, No Pulsatile Mass, Non Tender, Soft Back: Normal Inspection, No CVA Tenderness, No Vertebral Tenderness, Decreased Range of Motion (left leg) Extremity: Normal Capillary Refill, Normal Inspection, Normal Range of Motion (Except left leg), Non Tender, No Calf Tenderness, No Pedal Edema Neurologic/Psychiatric: Alert, Oriented x3, No Motor/Sensory Deficits, Normal Mood/Affect, Abnormal Gait, Motor Weakness (Left leg) Skin: Normal Color, Warm/Dry Lymphatic: No Adenopathy PM&R Medical Assessment & Plan REHAB/MEDICAL ASSESSMENT AND PLAN: REHAB IMPAIRMENT GROUP: Cardiac failure due to cardiac pauses with history of atrial fibrillation may need pacemaker ETIOLOGIC DIAGNOSIS: Cardiac failure due to cardiac pauses with history of atrial fibrillation may need pacemaker The comorbidities that impact the patients function and/or functional outcome by: Hypothyroidism, left leg pain from fall, fall risk, may need pacemaker REHAB PLAN: The patient is being admitted to our comprehensive inpatient rehabilitation facility and can tolerate the intensity of service consisting of at least: 180 minutes of therapy a day, 5 out of 7 days a week Rehab treatment will consist of: PT and OT will focus on regaining function with use of assistive devices in order to improve independence in ADLs in order to return back home to live alone The patient/family has a good understanding of our discharge process and will benefit from an interdisciplinary inpatient rehabilitation program. The patient has potential to make improvement and is in need of at least two of the following multidisciplinary therapies including but not limited to physical, occupational, speech, and prosthetics and orthotics. Additionally the patient will need services from respiratory, nutritional services, wound care, psychology, etc. (Customize this to each patient). Given the patients complex condition and risk of further medical complications, rehabilitation services cannot be safely or effectively provided at a lower level of care such as a care home facility. BARRIERS TO DISCHARGE: Lives alone ESTIMATED LOS: 7 days DISPOSITION: Home alone RELEVANT CHANGES SINCE PREADMISSION SCREENING: I have compared the patients medical and functional status at the time of the preadmission screening and there are: No changes PROGNOSIS: Good REHABILITATION GOALS: 1. PT and OT will focus on regaining function with use of assistive devices in order to improve independence in ADLs in order to return back home to live alone All the above goals were reviewed with the patient and he/she is in agreement. By signing this document, I acknowledge that I have personally performed a full physical examination on this patient within 24 hours of admission to this inpatient rehabilitation facility and have determined the patient to be able to tolerate the above course of treatment at an intensive level for a reasonable period of time. I will be completing a detailed individualized Plan of Care for this patient by day #4 of the patients stay based upon the Preadmission Screen, the Post-Admission Evaluation, and the therapy evaluations. Admission Dx/Comorbidities: (1) Chronic heart failure with preserved ejection fraction (HFpEF) ICD Codes: I50.32 - Chronic diastolic (congestive) heart failure (2) Near syncope ICD Codes: R55 - Syncope and collapse (3) Atrial fibrillation Status: Acute ICD Codes: I48.91 - Unspecified atrial fibrillation (4) Left foot pain Status: Acute ICD Codes: M79.672 - Pain in left foot (5) Mixed hyperlipidemia ICD Codes: E78.2 - Mixed hyperlipidemia (6) Debility ICD Codes: R53.81 - Other malaise (7) Hypertension Status: Acute ICD Codes: I10 - Essential (primary) hypertension Assessment/Plan Assessment and Plan Assess & Plan/Chief Complaint Assessment: Congestive heart failure induced myopathy Volume overload type due to cardiac arrhythmia with cardiac pauses Possible pacemaker required Atrial fibrillation Oral anticoagulation Hypothyroidism Hypertension Falls Left leg pain due to fall with hematoma from oral anticoagulation Plan: PT and OT Supportive care Fall risk technical difficulties required resigning the H&P which was completed within 24 hours of admit 11/09/22 ELVA BEAUCHAMP DO Nov 09, 2022 19:05
[2022-11-09] MEDS: RIVAROXABAN 15 MG TABLET (XARELTO) PO SCH (19:34)
[2022-11-09 19:36] VITALS: BP 137/74
[2022-11-09] MEDS ORDERED: SERTRALINE HCL 12.5 MG PO SCH (21:00)
[2022-11-09] MEDS ORDERED: BIFIDOBACTERIUM INFANTIS 10.5 MG PO SCH (21:00)
[2022-11-09] MEDS: DOCUSATE SODIUM 100 MG (COLACE) CAP PO SCH (21:59)
[2022-11-09] MEDS: polyethylene glycoL POWDER 17 GM (MIRALAX) PACK PO SCH (22:00)
[2022-11-09] MEDS: SENNA W/DOCUSATE (SENOKOT S) TABLET PO SCH (22:00)
[2022-11-09] MEDS: LACTOBACILLUS ACIDOPHILUS (PROBIOTIC) CAPSULE PO SCH (22:08)
[2022-11-09] MEDS: ACETAMINOPHEN 325 MG TABLET PO PRN (22:09)
[2022-11-09] MEDS: LOSARTAN 50 MG (COZAAR) TAB PO SCH (22:10)
[2022-11-09] MEDS: SERTRALINE 50 MG (ZOLOFT) TABLET PO SCH (22:11)
[2022-11-09] MEDS: ASPIRIN E.C. 81 MG (ECOTRIN) TAB PO SCH (22:11)
[2022-11-10 05:27] LABS: BASOPHILS # (AUTO) 0.1 10^3/uL (0.0-0.1); BASOPHILS % (AUTO) 1 % (0-10); EOSINOPHILS # (AUTO) 0.3 10^3/uL (0.0-0.3); EOSINOPHILS % (AUTO) 4 % (0-10); HEMATOCRIT 35 % (35-52); HEMOGLOBIN 11.7 g/dL (11.5-16.0); LYMPHOCYTES # (AUTO) 1.8 10^3/uL (1.0-4.0); LYMPHOCYTES % (AUTO) 22 % (12-44); MEAN CORPUSCULAR HEMOGLOBIN 31 pg (25-34); MEAN CORPUSCULAR HGB CONC 34 g/dL (32-36); MEAN CORPUSCULAR VOLUME 93 fL (80-99); MEAN PLATELET VOLUME 8.5 fL (9.0-12.2); MONOCYTES # (AUTO) 0.7 10^3/uL (0.0-1.0); MONOCYTES % (AUTO) 9 % (0-12); NEUTROPHILS # (AUTO) 5.3 10^3/uL (1.8-7.8); NEUTROPHILS % (AUTO) 64 % (42-75); PLATELET COUNT 318 10^3/uL (130-400); WHITE BLOOD COUNT 8.3 10^3/uL (4.3-11.0)
--- NOTE | 2022-11-10 05:46 | Individualized Plan of Care ---
Individualized Plan of Care Rehab Nursing IPOC Order Admission Date Nov 09, 2022 at 14:51 Current Orders Orders Admission Arrival Bed Request (11/09/22 14:51) General/Regular (11/09/22 Dinner) Telemetry (11/09/22 18:53) Telemetry Nursing Assessment ( (11/09/22 18:53) Admission Order(Inpt,Obs,Sdc) (11/09/22 18:58) Vital Signs: Per Unit Policy ( ,16,00 (11/09/22 18:58) Vasyl Quentin (11/09/22 18:58) Sequential Compression Device (11/09/22 18:58) Student Success Advisor-Inpt Rehab Con (11/09/22 18:58) Rehab Nursing Orders-Ipoc (11/09/22 18:58) Physical Therapy Rehab Orders (11/09/22 18:58) Occupational Therapy Rehab Ord (11/09/22 18:58) Speech Therapy Rehab Orders (11/09/22 18:58) Cbc With Automated Diff (11/10/22 06:00) Comprehensive Metabolic Panel (11/10/22 06:00) Precautions (Aru) (11/09/22 18:58) Weekly Weight WEEK (11/09/22 18:58) Rehab-Intensity Of Therapy (11/09/22 18:58) Initiate Admission Nursing Pro .admission (11/09/22 18:58) Alprazolam Tablet (Xanax Tablet) (11/09/22 19:00) Calcium Carbonate Chew Tablet (Antacid C (11/09/22 19:00) Diphenhydramine Tablet (Benadryl Tablet) (11/09/22 19:00) Docusate Sodium Capsule (Colace Capsule) (11/09/22 21:00) Docusate Sodium Capsule (Colace Capsule) (11/09/22 19:00) Bisacodyl Suppository (Dulcolax Supposit (11/09/22 19:00) Lactulose Oral Solution (Enulose Oral So (11/09/22 19:00) Na Phos/Na Biphos Enema (Fleet Enema Harshal (11/09/22 19:00) Loperamide Tablet (Imodium Tablet) (11/09/22 19:00) Melatonin Tablet (Melatonin Tablet) (11/09/22 19:00) Polyethylene Glycol Powder Pkt (Miralax (11/09/22 21:00) Ondansetron Oral Dissolve Tab (Zofran (11/09/22 19:00) Senna S Tablet (Senokot S Tablet) (11/09/22 21:00) Acetaminophen Tablet/Caplet (Tylenol T (11/09/22 19:00) Initiate Admission Nursing Pro .admission (11/09/22 18:58) Acetaminophen Tablet/Caplet (Tylenol T (11/09/22 19:15) Aspirin Enteric Coated Tablet (Ecotrin T (11/09/22 21:00) Atorvastatin Tablet (Lipitor Tablet) (11/09/22 21:00) Diltiazem Cd 24 Hr Capsule (Cardizem Cd (11/10/22 09:00) Losartan Tablet (Cozaar Tablet) (11/09/22 21:00) Rivaroxaban Tablet (Xarelto Tablet) (11/09/22 19:15) (Nf) Bifidobacterium Infantis (Align) (11/09/22 21:00) (Nf) Cholecalciferol (Vitamin D3) (Vitam (11/10/22 18:00) (Nf) Cholecalciferol (Vitamin D3) (Vitam (11/10/22 09:00) (Nf) Cyanocobalamin (Vitamin B-12) (Bela (11/10/22 09:00) (Nf) Fexofenadine Hcl (Janette Allergy) (11/10/22 09:00) (Nf) Sertraline Hcl (11/09/22 21:00) Levothyroxine Tablet (Synthroid Tablet) (11/11/22 06:30) Levothyroxine Tablet (Synthroid Tablet) (11/10/22 06:30) Sertraline Tablet (Zoloft Tablet) (11/09/22 21:00) Loratadine Tablet (Claritin Tablet) (11/10/22 09:00) Cyanocobalamin Tablet (Vitamin B-12 Tabl (11/10/22 09:00) Cholecalciferol Capsule/Tablet (Vitamin (11/10/22 09:00) Cholecalciferol Capsule/Tablet (Vitamin (11/10/22 18:00) Lactobacillus Acidophilus Cap (Acidophil (11/09/22 21:00) Consult Cardiology (11/10/22 05:49) Flecainide Tablet (Tambocor Tablet) (11/10/22 09:00) Ekg Tracing (11/11/22 06:00) Patient Visit (11/09/22 ) Pt Eval Low Complexity (11/09/22 ) Gait Training, Ea 15 Min (11/09/22 ) Functional Activities, Ea 15 (11/09/22 ) Code/Resuscitation (11/10/22 11:51) Patient Visit (11/10/22 ) Gait Training, Ea 15 Min (11/10/22 ) Functional Activities, Ea 15 (11/10/22 ) Exercise Therap, Ea 15 Min (11/10/22 ) Rehab Nursing Orders: Ongoing Assess. of Cognitive Status, Ongoing Assess. of Function Status, Bladder Management, Bladder Scan, Bladder Training, Bowel Management, Bowel Training, Disease Management & Educaiton, DVT Prophylaxis, Fall Prevention, Fluid/Electrolyte/Nutrition Mgmt, Infection Prevention, Med ication Management & Education, Management of Risks & Complications, Management of Skin Intergrity, Nutrition Management, Pain Management, Patient/Family Support, Safety Management, Weight Bearing Precaution Intensity of Therapy to be met Patient to be seen: Min.3h per day/5 of 7d PT IPOC Problem List: Activity Tolerance, Functional Strength, Safety, Balance, Gait, Transfer, Bed Mobility Treatment Plan: Continue Plan of Care Bed Mobility, Concurrent Therapy, Education, Functional Activity Samy, Functional Strength, Group Therapy, Gait, Safety, Therapeutic Exercise, Transfers Treatment Duration: Nov 19, 2022 Frequency: At least 5 of 7 days/Wk (IRF) Estimated Hrs Per Day: 1.5 hours per day OT IPOC Problems: Decreased Activ Tolerance, Decreased UE Strength, Impaired Funct Balance, Impaired I ADL's, Impaired Self-Care Skills OT Treatment, Training and Edu: Yes Plan of Care: ADL Retraining, Functional Mobility, Group Exercise/Act as Ind, UE Funct Exercise/Act Treatment Duration: Nov 27, 2022 Frequency: At least 5 of 7 days/Wk (IRF) Estimated Hrs Per Day: 1.[address] IPOC Speech Therapy Treatment Plan: Discontinue ST Treatment Duration: Nov 10, 2022 Frequency: Modified Program (IRF) Estimated Hrs Per Day: Other Student Success Advisor/Case Mgmt Student Success Advisor/Case Managemen: Discharge Planning Dietitian/Monitoring Specialist Dietitian/Monitoring Specialist to monitor nutritional status and make changes and/or recommendations as needed and work with speech pathology on dietary upgrades as the occur. Physician IPOC Medical Issues being managed closely and that require the 24 hour availability of a physician: Recent fall with severe leg hematoma and syncopal episodes with questionable cardiac pauses on loop recorder interrogated will require close monitoring along with cardiology evaluation on telemetry in order to prevent decompensation Medical Issues: Bowel/Bladder Function, DVT Prophylaxis, Falls Precautions, Fluid/Electrolyte/Nutrition Balance, Infection Protection, Pain Management, Weight Bearing Precautions Brief Synthesis of Preadmission Screen, Post-Admission Evaluation, and Therapy Evaluations: PT and OT will focus on regaining function with use of assistive devices in order to prevent falls and increased independence in ADLs. Medical Prognosis: Good Anticipated Length of Stay: 7 days ELVA BEAUCHAMP DO Nov 10, 2022 05:46
--- NOTE | 2022-11-10 05:46 | PM&R Progress Note ---
Subjective HPI/CC On Admission Date Seen by Provider: Nov 10, 2022 Time Seen by Provider: 10:00 Subjective/Events-last exam 11/10/2022: Patient doing dramatically better No pain is reported except for left leg Able to ambulate a little bit Still very slow to recover Major fall risk Review of Systems General: Fatigue, Malaise Musculoskeletal: leg pain Objective Exam Vital Signs Vital Signs Date Time Temp Pulse Resp B/P (MAP) Pulse Ox O2 Delivery O2 Flow Rate FiO2 11/11/22 09:10 74 140/66 (90) 11/11/22 08:56 Room Air 11/11/22 07:41 36.6 18 96 11/10/22 14:35 0.00 Capillary Refill : General Appearance: No Apparent Distress, WD/WN, Chronically ill, Thin HEENT: PERRL/EOMI, Normal ENT Inspection, Pharynx Normal Neck: Full Range of Motion, Normal Inspection, Non Tender, Supple, Carotid Bruit Respiratory: Chest Non Tender, Lungs Clear, Normal Breath Sounds, No Accessory Muscle Use, No Respiratory Distress Cardiovascular: Regular Rate, Rhythm, No Edema, No Gallop, No JVD, No Murmur, Normal Peripheral Pulses Gastrointestinal: Normal Bowel Sounds, No Organomegaly, No Pulsatile Mass, Non Tender, Soft Back: Normal Inspection, No CVA Tenderness, No Vertebral Tenderness, Decreased Range of Motion (left leg) Extremity: Normal Capillary Refill, Normal Inspection, Normal Range of Motion (Except left leg), Non Tender, No Calf Tenderness, No Pedal Edema Neurologic/Psychiatric: Alert, Oriented x3, No Motor/Sensory Deficits, Normal Mood/Affect, Abnormal Gait, Motor Weakness (Left leg) Skin: Normal Color, Warm/Dry, Ecchymosis (left leg) Lymphatic: No Adenopathy Results/Procedures Lab Patient resulted labs reviewed. FIM Transfers Therapy Code Descriptions/Definitions Functional [place] Measure: 0=Not Assessed/NA 4=Minimal Assistance 1=Total Assistance 5=Supervision or Setup 2=Maximal Assistance 6=Modified [place] 3=Moderate Assistance 7=Complete IndependenceSCALE: Activities may be completed with or without assistive devices. 4-Jbqkpirsay-amlverc completes the activity by him/herself with no assistance from a helper. 5-Set-up or Clean-up Assistance-helper sets up or cleans up; patient completes activity. Richards assists only prior to or following the activity. 4-Supervision or Touching Assistance-helper provides verbal cues and/or touching/steadying and/or contact guard assistance as patient completes activity. Assistance may be provided throughout the activity or intermittently. 3-Partial/Moderate Assistance-helper does LESS THAN HALF the effort. Richards lifts, holds or supports trunk or limbs, but provides less than half the effort. 2-Substantial/Maximal Assistance-helper does MORE THAN HALF the effort. Richards lifts or holds trunk or limbs and provides more than half the effort. 1-Sqvcsupdv-uwcpbm does ALL the effort. Patient does none of the effort to complete the activity. Or, the assistance of 2 or more helpers is required for the patient to complete the activity. If activity was not attempted, code reason: 7-Patient Refused. 9-Not Applicable-not attempted and the patient did not perform the activity before the current illness, exacerbation or injury. 10-Not Attempted due to Environmental Limitations-(lack of equipment, weather restraints, etc.). 88-Not Attempted due to Medical Conditions or Safety Concerns. Roll Left to Right (QC): 4 (SBA) Sit to Lying (QC): 4 (SBA) Sit to Stand (QC): 4 (CGA) Chair/Dwk-fq-Atcni Xfer(QC): 4 (CGA) Car Transfer (QC): 4 (CGA) Gait Training Does the Patient Walk?: Yes Walk 10 feet (QC): 4 (CGA) Walk 50 ft with 2 Turns(QC): 4 (CGA) Walk 150 ft (QC): 4 (CGA) Walking 10ft/uneven surface-QC: 4 (CGA) Gait Assistive Device: FWW Wheelchair Training Does the Pt Use a Wheelchair?: No Wheel 50 ft with 2 turns (QC): 9 Wheel 150 ft (QC): 9 Type of Wheelchair: N/A Stair Training #of Steps: 12 1 Step (curb) (QC): 4 (CGA) 4 Steps (QC): 4 (CGA) 12 Steps (QC): 4 (CGA) Balance Picking up an Object (QC): 4 (CGA) ADL-Treatment Eating (QC): 6 Oral Hygiene (QC): 4 (CGA) Shower/Bathe Self (QC): 4 (CGA) Upper Body Dressing (QC): 4 (CGA in stand) Lower Body Dressing (QC): 4 (CGA in stand) On/Off Footwear (QC): 4 (SBA) Toileting Hygiene (QC): 4 (CGA) Assessment/Plan Assessment and Plan Assess & Plan/Chief Complaint Assessment: Congestive heart failure induced myopathy Volume overload type due to cardiac arrhythmia with cardiac pauses Possible pacemaker required Atrial fibrillation Oral anticoagulation Hypothyroidism Hypertension Falls Left leg pain due to fall with hematoma from oral anticoagulation Plan: PT and OT Supportive care Fall risk 11/10/2022: Continue aggressive therapy Fall risk (1) Chronic heart failure with preserved ejection fraction (HFpEF) (2) Near syncope (3) Atrial fibrillation Status: Acute (4) Left foot pain Status: Acute (5) Mixed hyperlipidemia (6) Debility (7) Hypertension Status: Acute ELVA BEAUCHAMP DO Nov 10, 2022 05:46
[2022-11-10 05:52] LABS: ALBUMIN 3.4 GM/DL (3.2-4.5); BILIRUBIN,TOTAL 0.8 MG/DL (0.1-1.0); CALCIUM 8.7 MG/DL (8.5-10.1); CREATININE SERUM 0.74 MG/DL (0.60-1.30); POTASSIUM 3.9 MMOL/L (3.6-5.0); TOTAL PROTEIN 5.9 GM/DL (6.4-8.2)
[2022-11-10] MEDS: LEVOTHYROXINE 88 MCG (LEVOTHORID) TAB PO SCH (06:09)
--- NOTE | 2022-11-10 07:51 | Cardiology Progress Note ---
Subjective Date Seen by Provider: Nov 10, 2022 Time Seen by Provider: 08:10 Subjective/Events-last exam Patient is sitting up in bed, denies any chest pain or dyspnea. Objective-Cardiology Exam Last Set of Vital Signs Vital Signs 11/09/22 11/09/22 11/10/22 19:36 20:05 01:00 Temp 36.6 Pulse 75 Resp 18 B/P (MAP) 137/74 (95) Pulse Ox 96 O2 Delivery Room Air I&O Intake and Output 11/10/22 00:00 Intake Total 350 ml Balance 350 ml Intake Oral 350 ml # Voids 2 Daily Weight Change No General: Alert, Oriented X3 HEENT: Atraumatic, PERRLA Lungs: Clear to Auscultation, Normal Air Movement Heart: Regular Rate Abdomen: Normal Bowel Sounds, Soft Skin: No Rashes Neuro: Normal Gait, Normal Speech Psych/Mental Status: Mental Status NL, Mood NL Results Lab Laboratory Tests 11/10/22 05:20 A/P-Cardiology Admission Diagnosis PAF HTN HLP Generalized debility/weakness Assessment/Plan Non-specific, bilateral shoulder discomfort MPI of 09-22-2022 showed no evidence of ischemia or infarction. No regional wall motion abnormality. MPI 56% Gen malaise, undetermined etiology SSS and PAF: - S/P ILR implant 03-01-[address] Garnica - continuing intermittent PAF with RVR on ILR - OAC with Xarelto - this is being followed by Dr. Miller who has advised continued medical management, recommended starting Flecainide or Amiodarone per last note in Jul 2022. - ECG on 10-14-22: NSR with LBBB and PACs -I will start patient on Flecainide 50mg BID. EKG in the morning. Hypothyroidism,treated with thyroid replacement therapy. Managed by PCP HTN, labile HTN, continue to monitor Carotid art disease, history of s/p R CEA by Dr Adams on 05/26/21 at [facility], [place], [place] Mild bilat dz per u/s of 09-10-2021 Mitral Regurg: Echocardiogram of 12-04-[address] Garnica showed LVEF 55-65%. LA mildly dilated. Mod to severe MR. PASP 40-45 mmHg Echocardiogram of 09-02-20 showed LVEF 55-60%. Grade 1 diastolic dysfunction. Mild MR. AoV sclerosis with mild regurg. PASP 40-45 mmHg COPD with nocturnal hypoxemia, managed by her PCP Extobaccoism, quit smoking when she was in her 40's Mild pulmonary hypertension, PASP 40-45 mmHg per echo of 09-02-[address] Brown on 02-14-21 did not indicate sleep apnea - a-fib seen during the test Chronic, bilateral leg swelling, likely related to venous insuff Chronic scoliosis and degenerative cervical spinal disease (chronically stiff neck and shoulders) managed by her pcp Supervisory-Addendum Brief Supervisory Addendum Participated in pt care: history, MDM, physical Personally performed: exam, history, MDM Care discussed with: THEO Results interpretation: Verified all documentation Notes: Patient was seen and evaluated with Luis, examination performed, management plan was discussed, agree with the current scribed note, I made few changes to the note using Italic font Patient was seen at bedside, sitting comfortably, reporting episodes of near syncope. No full syncope reported Questionable relation to atrial fibrillation We will continue monitoring her loop Starting flecainide 50 mg twice daily and monitor tolerance and response. Monitor heart rate and blood pressure LUIS MONTENEGRO Nov 10, 2022 07:51 RITO EVANS MD Nov 10, 2022 08:36
[2022-11-10 08:00] VITALS: BP 128/68
[2022-11-10] MEDS: LORATADINE (CLARITIN) 10 MG TAB PO SCH (08:24)
[2022-11-10] MEDS: FLECAINIDE 100 MG (TAMBOCOR) TAB PO SCH ×2 (08:24→21:56)
[2022-11-10] MEDS: LOSARTAN 50 MG (COZAAR) TAB PO SCH ×2 (08:24→21:56)
[2022-11-10] MEDS: CYANOCOBALAMIN 1,000 MCG (VITAMIN B-12) TABLET PO SCH (08:24)
[2022-11-10] MEDS: dilTIAZem120 MG (CARDIZEM CD) CAP PO SCH (08:24)
[2022-11-10] MEDS: VITAMIN D3 25 MCG (1,000 UNITS) TABLET PO SCH ×2 (08:25→17:30)
[2022-11-10] MEDS: SENNA W/DOCUSATE (SENOKOT S) TABLET PO SCH ×2 (08:25→21:59)
[2022-11-10] MEDS: polyethylene glycoL POWDER 17 GM (MIRALAX) PACK PO SCH ×2 (08:25→21:59)
[2022-11-10] MEDS: DOCUSATE SODIUM 100 MG (COLACE) CAP PO SCH ×2 (08:25→21:56)
[2022-11-10] MEDS ORDERED: MTP100TCR PO (08:35)
--- NOTE | 2022-11-10 08:43 | Occupational Ther Daily Note ---
OT Current Status-Daily Note Subjective Pt up EOB, agreeable to OT Tx. Pt requires frequent redirection to task, as she often got off topic. Mental Status/Objective Patient Orientation: Normal For Age ADL-Treatment Therapy Code Descriptions/Definitions Functional [place] Measure: 0=Not Assessed/NA 4=Minimal Assistance 1=Total Assistance 5=Supervision or Setup 2=Maximal Assistance 6=Modified [place] 3=Moderate Assistance 7=Complete IndependenceSCALE: Activities may be completed with or without assistive devices. 1-Vxiauonikb-giaicuz completes the activity by him/herself with no assistance from a helper. 5-Set-up or Clean-up Assistance-helper sets up or cleans up; patient completes activity. [place] assists only prior to or following the activity. 4-Supervision or Touching Assistance-helper provides verbal cues and/or t ouching/steadying and/or contact guard assistance as patient completes activity. Assistance may be provided throughout the activity or intermittently. 3-Partial/Moderate Assistance-helper does LESS THAN HALF the effort. [place] lifts, holds or supports trunk or limbs, but provides less than half the effort. 2-Substantial/Maximal Assistance-helper does MORE THAN HALF the effort. [place] lifts or holds trunk or limbs and provides more than half the effort. 4-Yztcyewkw-lihjak does ALL the effort. Patient does none of the effort to complete the activity. Or, the assistance of 2 or more helpers is required for the patient to complete the activity. If activity was not attempted, code reason: 7-Patient Refused. 9-Not Applicable-not attempted and the patient did not perform the activity before the current illness, exacerbation or injury. 10-Not Attempted due to Environmental Limitations-(lack of equipment, weather restraints, etc.). 88-Not Attempted due to Medical Conditions or Safety Concerns. Eating (QC): 6 Oral Hygiene (QC): 6 Upper Body Dressing (QC): 5 Lower Body Dressing (QC): 5 On/Off Footwear: 6 Other Treatment Pt at EOB, agreeable to OT Tx. Pt completed oral care seated EOB independently. Donned UE/LE dressing with set up, footwear IND. Pt used FWW to perform functional mobility around her room, picking up various bags and putting them away, SBA with task. Pt transferred to table in [facility] Common area using FWW, SBA. OT tx focused on increasing BUE strength and activity tolerance. Pt participated in fine motor task, putting puzzle pieces together, 1lb wrist weight BUES throughout task. Pt returned to her room using FWW, SBA, transferring to recliner. Post tx, pt in recliner, call light in reach and all needs met. Education OT Patient Education: Correct positioning, Energy conservation, Modified ADL techniques, Progress toward Goal/Update tx plan, Purpose of tx/functional activities, Rehab process Teaching Recipient: Patient Teaching Methods: Discussion Response to Teaching: Verbalize Understanding OT Short Term Goals Short Term Goals Time Frame: Nov 18, 2022 Shower/bathe self: 5 Upper body dressin Lower body dressin Putting on/taking off footwear: 5 OT Detention Goals Planishing Press Operator Goals Time Frame: Nov 27, 2022 Acute change in mental status: 0 Inattention: 0 Disorganized thinkin Altered level of consciousness: 0 Eating (QC): 6 Oral Hygiene (QC): 6 Toileting Hygiene (QC): 6 Shower/Bathe Self (QC): 6 Upper Body Dressing (QC): 6 Lower Body Dressing (QC): 6 On/Off Footwear (QC): 6 Additional Goals: 1-Demonstrate ADL Tasks, 2-Verbalize Understanding, 3- ImproveStrength/Samy 1=Demonstrate adherence to instructed precautions during ADL tasks. 2=Patient will verbalize/demonstrate understanding of assistive devices/modifi cations for ADL. 3=Patient will improve strength/tolerance for activity to enable patient to perform ADL's. OT Education/Plan Problem List/Assessment Assessment: Decreased Activ Tolerance, Decreased UE Strength, Impaired Funct Balance, Impaired I ADL's, Impaired Self-Care Skills Discharge Recommendations Plan/Recommendations: Continue POC Treatment Plan/Plan of Care Patient would benefit from OT for education, treatment and training to promote independence in ADL's, mobility, safety and/or upper extremity function for ADL's. Plan of Care: ADL Retraining, Functional Mobility, Group Exercise/Act as Ind, UE Funct Exercise/Act Treatment Duration: Nov 27, 2022 Frequency: At least 5 of 7 days/Wk (IRF) Estimated Hrs Per Day: 1.5 hours per day Agreement: Yes Rehab Potential: Good Time Start Time: 07:30 Stop Time: 09:00 DATE: Nov 10, 2022 Total Time Billed (hr/min): 90 Billed Treatment Time 1, ADL 4 (60'), FA 2 (30') BERTRAM SCHULTZ OT Nov 10, 2022 08:43
[2022-11-10] MEDS ORDERED: NON-FORMULARY MEDICATION 1 EA EA (Cyanocobalamin (Vitamin B-12) (Vitamin B-12) 500 MCG) PO SCH (09:00)
[2022-11-10] MEDS ORDERED: NON-FORMULARY MEDICATION 1 EA EA (Cholecalciferol (Vitamin D3) (Vitamin D3) 50 MCG) PO SCH (09:00)
[2022-11-10] MEDS ORDERED: NON-FORMULARY MEDICATION 1 EA EA (Fexofenadine HCl (Allegra Allergy) 180 MG) PO SCH (09:00)
--- NOTE | 2022-11-10 11:57 | Physical Therapy Daily Note ---
PT Daily Note-Current Subjective pt is in recliner and willing for therapy this day. pt reports 4/10 pain in the left knee. " a sharp stabbing pain" dr owen is aware. pt was left in room in recliner with call light and all need met at the end of session. Pain Section J - Health Conditions 1. Rarely or not at all 2. Occasionally 3. Frequently 4. Almost constantly 8. Unable to answer Pain Effect on Sleep: 1 Pain Interference with Therapy: 1 Pain Interference w/Day-to-Day: 1 Mental Status Patient Orientation: Person, Place, Time, Situation Transfers SCALE: Activities may be completed with or without assistive devices. 0-Sfafgbcvzo-ivuqeuq completes the activity by him/herself with no assistance from a helper. 5-Set-up or Clean-up Assistance-helper sets up or cleans up; patient completes activity. [place] assists only prior to or following the activity. 4-Supervision or Touching Assistance-helper provides verbal cues and/or touching/steadying and/or contact guard assistance as patient completes activity. Assistance may be provided throughout the activity or intermittently. 3-Partial/Moderate Assistance-helper does LESS THAN HALF the effort. [place] lifts, holds or supports trunk or limbs, but provides less than half the effort. 2-Substantial/Maximal Assistance-helper does MORE THAN HALF the effort. [place] lifts or holds trunk or limbs and provides more than half the effort. 0-Tykzwjgdg-rpdvvm does ALL the effort. Patient does none of the effort to complete the activity. Or, the assistance of 2 or more helpers is required for the patient to complete the activity. If activity was not attempted, code reason: 7-Patient Refused. 9-Not Applicable-not attempted and the patient did not perform the activity before the current illness, exacerbation or injury. 10-Not Attempted due to Environmental Limitations-(lack of equipment, weather restraints, etc.). 88-Not Attempted due to Medical Conditions or Safety Concerns. Weight Bearing Right Lower Extremity: Right Full Weight Bearing Full Weight Bearing Treatments pt preformed ambulation and dynamic sitting and standing balance this day with reaching out side of COG with NO LOB or SOB this day. pt ambulated 150ft with RW and no VC for safety no SOB or fatigue noted. PT Field Care Advocate Goals Field Care Advocate Goals PT Long-Term Goals Time Frame: Nov 19, 2022 Roll Left & Right (QC): 6 (Pt will be Mod I with functional mobility, with least restrictive AD, in order to be at PLOF. ) Sit to Lying (QC): 6 (Pt will be Mod I with functional mobility, with least restrictive AD, in order to be at PLOF. ) Lying-Sitting on Side/Bed(QC): 6 (Pt will be Mod I with functional mobility, with least restrictive AD, in order to be at PLOF. ) Sit to Stand (QC): 6 (Pt will be Mod I with functional mobility, with least restrictive AD, in order to be at PLOF. ) Chair/Tka-fs-Iwfny Xfer(QC): 6 (Pt will be Mod I with functional mobility, with least restrictive AD, in order to be at PLOF. ) Toilet Transfer (QC): 6 (Pt will be Mod I with functional mobility, with least restrictive AD, in order to be at PLOF. ) Car Transfer (QC): 6 (Pt will be Mod I with functional mobility, with least restrictive AD, in order to be at PLOF. ) Does the Patient Walk: Yes Walk 10 feet (QC): 6 (Pt will be Mod I with functional mobility, with least restrictive AD, in order to be at PLOF. ) Walk 50ft with 2 Turns (QC): 6 (Pt will be Mod I with functional mobility, with least restrictive AD, in order to be at PLOF. ) Walk 150 ft (QC): 6 (Pt will be Mod I with functional mobility, with least restrictive AD, in order to be at PLOF. ) Walking 10ft on Uneven Surface: 6 (Pt will be Mod I with functional mobility, with least restrictive AD, in order to be at PLOF. ) 1 Step (curb) (QC): 6 (Pt will be Mod I with functional mobility, with least restrictive AD, in order to be at PLOF. ) 4 Steps (QC): 6 (Pt will be Mod I with functional mobility, with least restrictive AD, in order to be at PLOF. ) 12 Steps (QC): 6 (Pt will be Mod I with functional mobility, with least restrictive AD, in order to be at PLOF. ) Picking up an Object (QC): 6 (Pt will be Mod I with functional mobility, with least restrictive AD, in order to be at PLOF. ) Does the Pt use WC or Scooter?: No Wheel 50 feet with 2 turns (QC: 9 Type: N/A Wheel 150 feet: 9 Type: N/A PT Plan Treatment/Plan Treatment Plan: Continue Plan of Care Treatment Plan: Bed Mobility, Concurrent Therapy, Education, Functional Ac tivity Samy, Functional Strength, Group Therapy, Gait, Safety, Therapeutic Exercise, Transfers Treatment Duration: Nov 19, 2022 Frequency: At least 5 of 7 days/Wk (IRF) Estimated Hrs Per Day: 1.5 hours per day Patient and/or Family Agrees t: Yes Time Time In: 0930 Time Out: 1100 DATE: Nov 10, 2022 Total Billed Treatment Time: 90 Total Billed Treatment 1 Gt x 2 FA x 3 ex Meka Isaacs PHOTONICS TECHNICIAN Nov 10, 2022 11:57
[2022-11-10] MEDS: RIVAROXABAN 15 MG TABLET (XARELTO) PO SCH (17:30)
[2022-11-10] MEDS ORDERED: NON-FORMULARY MEDICATION 1 EA EA (Cholecalciferol (Vitamin D3) (Vitamin D3) 25 MCG) PO SCH (18:00)
[2022-11-10 20:35] VITALS: BP 145/66
[2022-11-10] MEDS: ASPIRIN E.C. 81 MG (ECOTRIN) TAB PO SCH (21:55)
[2022-11-10] MEDS: ACETAMINOPHEN 325 MG TABLET PO PRN (21:55)
[2022-11-10] MEDS: LACTOBACILLUS ACIDOPHILUS (PROBIOTIC) CAPSULE PO SCH (21:55)
[2022-11-10] MEDS: SERTRALINE 50 MG (ZOLOFT) TABLET PO SCH (21:56)
--- NOTE | 2022-11-11 05:34 | PM&R Progress Note ---
Subjective HPI/CC On Admission Date Seen by Provider: Nov 11, 2022 Time Seen by Provider: 12:00 Subjective/Events-last exam 11/11/2022: Doing a lot better No pain except left leg No falls Improved Orthostasis did occur with similar symptoms as she has had with syncopal episodes Dr Green will adjust meds 11/10/2022: Patient doing dramatically better No pain is reported except for left leg Able to ambulate a little bit Still very slow to recover Major fall risk Review of Systems General: Fatigue, Malaise Objective Exam Vital Signs Vital Signs Date Time Temp Pulse Resp B/P (MAP) Pulse Ox O2 Delivery O2 Flow Rate FiO2 11/12/22 01:00 90 11/11/22 20:50 Room Air 11/11/22 19:07 36.4 20 133/79 (97) 99 11/10/22 14:35 0.00 Capillary Refill : General Appearance: No Apparent Distress, WD/WN, Chronically ill, Thin HEENT: PERRL/EOMI, Normal ENT Inspection, Pharynx Normal Neck: Full Range of Motion, Normal Inspection, Non Tender, Supple, Carotid Bruit Respiratory: Chest Non Tender, Lungs Clear, Normal Breath Sounds, No Accessory Muscle Use, No Respiratory Distress Cardiovascular: Regular Rate, Rhythm, No Edema, No Gallop, No JVD, No Murmur, Normal Peripheral Pulses Gastrointestinal: Normal Bowel Sounds, No Organomegaly, No Pulsatile Mass, Non Tender, Soft Back: Normal Inspection, No CVA Tenderness, No Vertebral Tenderness, Decreased Range of Motion (left leg) Extremity: Normal Capillary Refill, Normal Inspection, Normal Range of Motion (Except left leg), Non Tender, No Calf Tenderness, No Pedal Edema Neurologic/Psychiatric: Alert, Oriented x3, No Motor/Sensory Deficits, Normal Mood/Affect, Abnormal Gait, Motor Weakness (Left leg) Skin: Normal Color, Warm/Dry, Ecchymosis (left leg) Lymphatic: No Adenopathy Results/Procedures Lab Patient resulted labs reviewed. FIM Transfers Therapy Code Descriptions/Definitions Functional [place] Measure: 0=Not Assessed/NA 4=Minimal Assistance 1=Total Assistance 5=Supervision or Setup 2=Maximal Assistance 6=Modified [place] 3=Moderate Assistance 7=Complete IndependenceSCALE: Activities may be completed with or without assistive devices. 1-Fkbbbejsev-vlzlggo completes the activity by him/herself with no assistance from a helper. 5-Set-up or Clean-up Assistance-helper sets up or cleans up; patient completes activity. [place] assists only prior to or following the activity. 4-Supervision or Touching Assistance-helper provides verbal cues and/or touching/steadying and/or contact guard assistance as patient completes activity. Assistance may be provided throughout the activity or intermittently. 3-Partial/Moderate Assistance-helper does LESS THAN HALF the effort. [place] lifts, holds or supports trunk or limbs, but provides less than half the effort. 2-Substantial/Maximal Assistance-helper does MORE THAN HALF the effort. [place] lifts or holds trunk or limbs and provides more than half the effort. 3-Qkqdwvlvl-bbzqzb does ALL the effort. Patient does none of the effort to complete the activity. Or, the assistance of 2 or more helpers is required for the patient to complete the activity. If activity was not attempted, code reason: 7-Patient Refused. 9-Not Applicable-not attempted and the patient did not perform the activity before the current illness, exacerbation or injury. 10-Not Attempted due to Environmental Limitations-(lack of equipment, weather restraints, etc.). 88-Not Attempted due to Medical Conditions or Safety Concerns. Roll Left to Right (QC): 4 (SBA) Sit to Lying (QC): 4 (SBA) Sit to Stand (QC): 4 (CGA) Chair/Mue-mj-Unscd Xfer(QC): 4 (CGA) Car Transfer (QC): 4 (CGA) Gait Training Does the Patient Walk?: Yes Walk 10 feet (QC): 4 (CGA) Walk 50 ft with 2 Turns(QC): 4 (CGA) Walk 150 ft (QC): 4 (CGA) Walking 10ft/uneven surface-QC: 4 (CGA) Gait Assistive Device: FWW Wheelchair Training Does the Pt Use a Wheelchair?: No Wheel 50 ft with 2 turns (QC): 9 Wheel 150 ft (QC): 9 Type of Wheelchair: N/A Stair Training #of Steps: 12 1 Step (curb) (QC): 4 (CGA) 4 Steps (QC): 4 (CGA) 12 Steps (QC): 4 (CGA) Balance Picking up an Object (QC): 4 (CGA) ADL-Treatment Eating (QC): 6 Oral Hygiene (QC): 6 Shower/Bathe Self (QC): 4 (CGA) Upper Body Dressing (QC): 5 Lower Body Dressing (QC): 5 On/Off Footwear (QC): 6 Toileting Hygiene (QC): 4 (CGA) Assessment/Plan Assessment and Plan Assess & Plan/Chief Complaint Assessment: Congestive heart failure non-volume overload type due to cardiac arrhythmia with cardiac pauses Possible pacemaker required Atrial fibrillation Oral anticoagulation Hypothyroidism Hypertension Falls Left leg pain due to fall with hematoma from oral anticoagulation Orthostasis with near syncope on 11/11/22 Plan: PT and OT Supportive care Fall risk 11/10/2022: Continue aggressive therapy Fall risk 11/11/2022: Dr Green to manage meds due to orthostasis (1) Chronic heart failure with preserved ejection fraction (HFpEF) (2) Near syncope (3) Atrial fibrillation Status: Acute (4) Left foot pain Status: Acute (5) Mixed hyperlipidemia (6) Debility (7) Hypertension Status: Acute ELVA BEAUCHAMP DO Nov 11, 2022 05:34
[2022-11-11] MEDS: LEVOTHYROXINE 75 MCG (LEVOTHROID) TABLET PO SCH (06:50)
[2022-11-11 07:41] VITALS: BP 140/78
--- NOTE | 2022-11-11 07:54 | Occupational Ther Daily Note ---
OT Current Status-Daily Note Subjective Pt in bed, agreeable to OT tx, states she didn't sleep well last night. ADL-Treatment Therapy Code Descriptions/Definitions Functional [place] Measure: 0=Not Assessed/NA 4=Minimal Assistance 1=Total Assistance 5=Supervision or Setup 2=Maximal Assistance 6=Modified [place] 3=Moderate Assistance 7=Complete IndependenceSCALE: Activities may be completed with or without assistive devices. 7-Eynkbbdbbu-qseduqt completes the activity by him/herself with no assistance from a helper. 5-Set-up or Clean-up Assistance-helper sets up or cleans up; patient completes activity. [place] assists only prior to or following the activity. 4-Supervision or Touching Assistance-helper provides verbal cues and/or touching/steadying and/or contact guard assistance as patient completes activity. Assistance may be provided throughout the activity or intermittently. 3-Partial/Moderate Assistance-helper does LESS THAN HALF the effort. [place] lifts, holds or supports trunk or limbs, but provides less than half the effort. 2-Substantial/Maximal Assistance-helper does MORE THAN HALF the effort. [place] lifts or holds trunk or limbs and provides more than half the effort. 3-Figqplmai-cspoua does ALL the effort. Patient does none of the effort to complete the activity. Or, the assistance of 2 or more helpers is required for the patient to complete the activity. If activity was not attempted, code reason: 7-Patient Refused. 9-Not Applicable-not attempted and the patient did not perform the activity before the current illness, exacerbation or injury. 10-Not Attempted due to Environmental Limitations-(lack of equipment, weather restraints, etc.). 88-Not Attempted due to Medical Conditions or Safety Concerns. Eating (QC): 6 Oral Hygiene (QC): 6 Shower/Bathe Self (QC): 6 Upper Body Dressing (QC): 6 Lower Body Dressing (QC): 6 On/Off Footwear: 6 Toileting Hygiene (QC): 6 Toilet Transfer (QC): 6 Other Treatment Pt in bed, transferred supine to sit EOB, IND. Pt used FWW to transfer to toilet, completing toileting IND. Pt gathered clothes from closet using FWW, IND, no LOB noted. Pt transferred to VT, doffed clothes, completed shower, then donned clothes, IND. Pt completed grooming tasks at sink, alternating between standing and sitting, IND. Pt returned to recliner using FWW, IND. Post tx, pt in recliner, call light in reach and all needs met. RN present. Education OT Patient Education: Correct positioning, Energy conservation, Modified ADL techniques, Progress toward Goal/Update tx plan, Purpose of tx/functional activities, Rehab process Teaching Recipient: Patient Teaching Methods: Discussion Response to Teaching: Verbalize Understanding OT Short Term Goals Short Term Goals Time Frame: Nov 18, 2022 Shower/bathe self: 5 Upper body dressin Lower body dressin Putting on/taking off footwear: 5 OT Grader [employer] Goals Residential Goals Time Frame: Nov 27, 2022 Acute change in mental status: 0 Inattention: 0 Disorganized thinkin Altered level of consciousness: 0 Eating (QC): 6 Oral Hygiene (QC): 6 Toileting Hygiene (QC): 6 Shower/Bathe Self (QC): 6 Upper Body Dressing (QC): 6 Lower Body Dressing (QC): 6 On/Off Footwear (QC): 6 Additional Goals: 1-Demonstrate ADL Tasks, 2-Verbalize Understanding, 3- ImproveStrength/Samy 1=Demonstrate adherence to instructed precautions during ADL tasks. 2=Patient will verbalize/demonstrate understanding of assistive devices/modifications for ADL. 3=Patient will improve strength/tolerance for activity to enable patient to perform ADL's. OT Education/Plan Problem List/Assessment Assessment: Decreased Activ Tolerance, Decreased UE Strength, Impaired I ADL's Discharge Recommendations Plan/Recommendations: Continue POC Treatment Plan/Plan of Care Patient would benefit from OT for education, treatment and training to promote independence in ADL's, mobility, safety and/or upper extremity function for ADL's. Plan of Care: ADL Retraining, Functional Mobility, Group Exercise/Act as Ind, UE Funct Exercise/Act Treatment Duration: Nov 27, 2022 Frequency: At least 5 of 7 days/Wk (IRF) Estimated Hrs Per Day: 1.5 hours per day Agreement: Yes Rehab Potential: Good Time Start Time: 07:25 Stop Time: 08:55 DATE: Nov 11, 2022 Total Time Billed (hr/min): 90 Billed Treatment Time 1, ADL 6 BERTRAM SCHULTZ OT Nov 11, 2022 07:54
[2022-11-11] MEDS: SENNA W/DOCUSATE (SENOKOT S) TABLET PO SCH ×2 (08:31→21:33)
[2022-11-11] MEDS: DOCUSATE SODIUM 100 MG (COLACE) CAP PO SCH ×2 (08:31→21:33)
[2022-11-11] MEDS: LORATADINE (CLARITIN) 10 MG TAB PO SCH (08:31)
[2022-11-11] MEDS: dilTIAZem120 MG (CARDIZEM CD) CAP PO SCH (08:32)
[2022-11-11] MEDS: LOSARTAN 50 MG (COZAAR) TAB PO SCH (08:32)
[2022-11-11] MEDS: CYANOCOBALAMIN 1,000 MCG (VITAMIN B-12) TABLET PO SCH (08:32)
[2022-11-11] MEDS: FLECAINIDE 100 MG (TAMBOCOR) TAB PO SCH ×2 (08:33→21:31)
[2022-11-11] MEDS: VITAMIN D3 25 MCG (1,000 UNITS) TABLET PO SCH ×2 (08:34→17:43)
[2022-11-11] MEDS: polyethylene glycoL POWDER 17 GM (MIRALAX) PACK PO SCH ×2 (08:34→19:55)
[2022-11-11 08:50] VITALS: BP 66/48
[2022-11-11 08:52] VITALS: BP 122/57
[2022-11-11 08:56] VITALS: BP 125/61
[2022-11-11 09:10] VITALS: BP 140/66
--- NOTE | 2022-11-11 11:57 | Physical Therapy Daily Note ---
PT Daily Note-Current Subjective pt was in bed upon arrival and willing for therapy. nursing reported tunnel vision and a BP drop to 66/48 proir in the morning. pt BP was check at supine, 169/80, Sitting EOB 161/93 and standing 141/76. pt was left in recliner with call light and all needs met after therapy session, Pain Section J - Health Conditions 1. Rarely or not at all 2. Occasionally 3. Frequently 4. Almost constantly 8. Unable to answer Pain Effect on Sleep: 1 Pain Interference with Therapy: 1 Pain Interference w/Day-to-Day: 1 Mental Status Patient Orientation: Person, Place, Time, Situation Transfers SCALE: Activities may be completed with or without assistive devices. 7-Mxmtrenfzs-quzacmd completes the activity by him/herself with no assistance from a helper. 5-Set-up or Clean-up Assistance-helper sets up or cleans up; patient completes activity. [place] assists only prior to or following the activity. 4-Supervision or Touching Assistance-helper provides verbal cues and/or touching/steadying and/or contact guard assistance as patient completes activity. Assistance may be provided throughout the activity or intermittently. 3-Partial/Moderate Assistance-helper does LESS THAN HALF the effort. [place] lifts, holds or supports trunk or limbs, but provides less than half the effort. 2-Substantial/Maximal Assistance-helper does MORE THAN HALF the effort. [place] lifts or holds trunk or limbs and provides more than half the effort. 5-Pkrfrortf-slooye does ALL the effort. Patient does none of the effort to complete the activity. Or, the assistance of 2 or more helpers is required for the patient to complete the activity. If activity was not attempted, code reason: 7-Patient Refused. 9-Not Applicable-not attempted and the patient did not perform the activity before the current illness, exacerbation or injury. 10-Not Attempted due to Environmental Limitations-(lack of equipment, weather restraints, etc.). 88-Not Attempted due to Medical Conditions or Safety Concerns. Weight Bearing Right Lower Extremity: Right Full Weight Bearing Full Weight Bearing Treatments Pt was assessed for BP changes from supine to sitting EOB to standing and res ults are noted above. pt preformed ambulation of 200ft with RW and WC follow behind incase tunnel vision did return. pt did require 1 sitting rest break secondary to left knee pain that disputed when resting. Assessment Current Status: Good Progress PT Critical Care Physician Goals Correction Goals PT Correction Goals Time Frame: Nov 19, 2022 Roll Left & Right (QC): 6 (Pt will be Mod I with functional mobility, with least restrictive AD, in order to be at PLOF. ) Sit to Lying (QC): 6 (Pt will be Mod I with functional mobility, with least restrictive AD, in order to be at PLOF. ) Lying-Sitting on Side/Bed(QC): 6 (Pt will be Mod I with functional mobility, with least restrictive AD, in order to be at PLOF. ) Sit to Stand (QC): 6 (Pt will be Mod I with functional mobility, with least restrictive AD, in order to be at PLOF. ) Chair/Rla-zf-Ofjez Xfer(QC): 6 (Pt will be Mod I with functional mobility, with least restrictive AD, in order to be at PLOF. ) Toilet Transfer (QC): 6 (Pt will be Mod I with functional mobility, with least restrictive AD, in order to be at PLOF. ) Car Transfer (QC): 6 (Pt will be Mod I with functional mobility, with least restrictive AD, in order to be at PLOF. ) Does the Patient Walk: Yes Walk 10 feet (QC): 6 (Pt will be Mod I with functional mobility, with least restrictive AD, in order to be at PLOF. ) Walk 50ft with 2 Turns (QC): 6 (Pt will be Mod I with functional mobility, with least restrictive AD, in order to be at PLOF. ) Walk 150 ft (QC): 6 (Pt will be Mod I with functional mobility, with least restrictive AD, in order to be at PLOF. ) Walking 10ft on Uneven Surface: 6 (Pt will be Mod I with functional mobility, with least restrictive AD, in order to be at PLOF. ) 1 Step (curb) (QC): 6 (Pt will be Mod I with functional mobility, with least restrictive AD, in order to be at PLOF. ) 4 Steps (QC): 6 (Pt will be Mod I with functional mobility, with least restrictive AD, in order to be at PLOF. ) 12 Steps (QC): 6 (Pt will be Mod I with functional mobility, with least restrictive AD, in order to be at PLOF. ) Picking up an Object (QC): 6 (Pt will be Mod I with functional mobility, with least restrictive AD, in order to be at PLOF. ) Does the Pt use WC or Scooter?: No Wheel 50 feet with 2 turns (QC: 9 Type: N/A Wheel 150 feet: 9 Type: N/A PT Plan Treatment/Plan Treatment Plan: Continue Plan of Care Treatment Plan: Bed Mobility, Concurrent Therapy, Education, Functional Activity Samy, Functional Strength, Group Therapy, Gait, Safety, Therapeutic Exercise, Transfers Treatment Duration: Nov 19, 2022 Frequency: At least 5 of 7 days/Wk (IRF) Estimated Hrs Per Day: 1.5 hours per day Patient and/or Family Agrees t: Yes Time Time In: 1030 Time Out: 1200 DATE: Nov 11, 2022 Total Billed Treatment Time: 90 Total Billed Treatment 1 GT x 3 FA x 3 Meka Isaacs [employer] LOGIST[employer] SPECIALIST Nov 11, 2022 11:57
--- NOTE | 2022-11-11 13:05 | Cardiology Progress Note ---
Subjective Date Seen by Provider: Nov 11, 2022 Time Seen by Provider: 13:03 Subjective/Events-last exam Patient was seen at bedside, had an episode of orthostatic hypotension this morning. Currently feeling better Review of Systems General: No Chills, No Night Sweats, No Fatigue, No Malaise, No Appetite, No Other HEENT: No Head Aches, No Visual Changes, No Eye Pain, No Ear Pain, No Dysphasia, No Sinus Congestion, No Post Nasal Drip, No Sore Throat, No Other Pulmonary: No Dyspnea, No Cough, No Pleuritic Chest Pain, No Other Cardiovascular: No: Chest Pain, Palpitations, Orthopnea, Paroxysmal Noc. Dyspnea, Edema, Lt Headedness, Other Objective-Cardiology Exam Last Set of Vital Signs Vital Signs 11/10/22 11/11/22 11/11/22 14:35 07:41 09:10 Temp 36.6 Pulse 74 Resp 18 B/P (MAP) 140/66 (90) Pulse Ox 96 O2 Flow Rate 0.00 I&O Intake and Output0 11/11/22 00:00 Intake Total 1200 ml Balance 1200 ml Intake Oral 1200 ml # Voids 7 # Bowel Movements 1 General: Alert, Oriented X3 HEENT: Atraumatic, PERRLA Lungs: Clear to Auscultation, Normal Air Movement Heart: Regular Rate, Normal S1, Normal S2 Abdomen: Normal Bowel Sounds, Soft Skin: No Rashes Neuro: Normal Gait, Normal Speech Psych/Mental Status: Mental Status NL, Mood NL A/P-Cardiology Admission Diagnosis PAF HTN HLP Generalized debility/weakness Assessment/Plan Atypical chest pain, non-specific, bilateral shoulder discomfort MPI of 09-22-2022 showed no evidence of ischemia or infarction. No regional wall motion abnormality. MPI 56% Gen malaise, undetermined etiology SSS and PAF: - S/P ILR implant 03-01-[address] Garnica - continuing intermittent PAF with RVR on ILR - OAC with Xarelto - this is being followed by Dr. Miller who has advised continued medical management, recommended starting Flecainide or Amiodarone per last note in Jul 2022. - ECG on 10-14-22: NSR with LBBB and PACs Patient was started on flecainide 50 mg twice daily. Continue to monitor Hypothyroidism,treated with thyroid replacement therapy. Managed by PCP Hypertension, labile blood pressure Episode of hypotension orthostatic this morning. Patient is maintained on Cardizem CD 120 mg daily. I will decrease losartan to 50 mg once daily in the morning Monitor her tolerance and response. Encourage increasing fluid intake Carotid art disease, history of s/p R CEA by Dr Adams on 05/26/21 at [facility], [place] Mild bilat dz per u/s of 09-10-2021 Mitral Regurg: Echocardiogram of 12-04-[address] Garnica showed LVEF 55-65%. LA mildly dilated. Mod to severe MR. PASP 40-45 mmHg Echocardiogram of 09-02-20 showed LVEF 55-60%. Grade 1 diastolic dysfunction. Mild MR. AoV sclerosis with mild regurg. PASP 40-45 mmHg COPD with nocturnal hypoxemia, managed by her PCP Extobaccoism, quit smoking when she was in her 40's Mild pulmonary hypertension, PASP 40-45 mmHg per echo of 09-02-[address] Brown on 02-14-21 did not indicate sleep apnea - a-fib seen during the test Chronic, bilateral leg swelling, likely related to venous insuff Chronic scoliosis and degenerative cervical spinal disease (chronically stiff neck and shoulders) managed by her pcp RITO EVANS MD Nov 11, 2022 13:05
[2022-11-11] MEDS: RIVAROXABAN 15 MG TABLET (XARELTO) PO SCH (17:43)
[2022-11-11 19:07] VITALS: BP 133/79
[2022-11-11] MEDS: LACTOBACILLUS ACIDOPHILUS (PROBIOTIC) CAPSULE PO SCH (21:31)
[2022-11-11] MEDS: SERTRALINE 50 MG (ZOLOFT) TABLET PO SCH (21:31)
[2022-11-11] MEDS: ASPIRIN E.C. 81 MG (ECOTRIN) TAB PO SCH (21:31)
[2022-11-12] MEDS: LEVOTHYROXINE 88 MCG (LEVOTHORID) TAB PO SCH (03:27)
--- NOTE | 2022-11-12 05:32 | PM&R Progress Note ---
Subjective HPI/CC On Admission Date Seen by Provider: Nov 12, 2022 Time Seen by Provider: 12:00 Subjective/Events-last exam 11/12/2022: Patient doing a lot better Had another orthostatic syncopal episode and her blood pressure was back in the 60s No other concerns 11/11/2022: Doing a lot better No pain except left leg No falls Improved Orthostasis did occur with similar symptoms as she has had with syncopal episodes Dr Green will adjust meds 11/10/2022: Patient doing dramatically better No pain is reported except for left leg Able to ambulate a little bit Still very slow to recover Major fall risk Review of Systems General: Fatigue, Malaise Objective Exam Vital Signs Vital Signs Date Time Temp Pulse Resp B/P (MAP) Pulse Ox O2 Delivery O2 Flow Rate FiO2 11/13/22 01:00 95 11/12/22 21:00 97 Room Air 11/12/22 20:50 154/80 (104) 11/12/22 19:46 37.0 16 11/10/22 14:35 0.00 Capillary Refill : General Appearance: No Apparent Distress, WD/WN, Chronically ill, Thin HEENT: PERRL/EOMI, Normal ENT Inspection, Pharynx Normal Neck: Full Range of Motion, Normal Inspection, Non Tender, Supple, Carotid Bruit Respiratory: Chest Non Tender, Lungs Clear, Normal Breath Sounds, No Accessory Muscle Use, No Respiratory Distress Cardiovascular: Regular Rate, Rhythm, No Edema, No Gallop, No JVD, No Murmur, Normal Peripheral Pulses Gastrointestinal: Normal Bowel Sounds, No Organomegaly, No Pulsatile Mass, Non Tender, Soft Back: Normal Inspection, No CVA Tenderness, No Vertebral Tenderness, Decreased Range of Motion (left leg) Extremity: Normal Capillary Refill, Normal Inspection, Normal Range of Motion (Except left leg), Non Tender, No Calf Tenderness, No Pedal Edema Neurologic/Psychiatric: Alert, Oriented x3, No Motor/Sensory Deficits, Normal Mood/Affect, Abnormal Gait, Motor Weakness (Left leg) Skin: Normal Color, Warm/Dry, Ecchymosis (left leg) Lymphatic: No Adenopathy Results/Procedures Lab Patient resulted labs reviewed. FIM Transfers Therapy Code Descriptions/Definitions Functional [place] Measure: 0=Not Assessed/NA 4=Minimal Assistance 1=Total Assistance 5=Supervision or Setup 2=Maximal Assistance 6=Modified [place] 3=Moderate Assistance 7=Complete IndependenceSCALE: Activities may be completed with or without assistive devices. 2-Fganqnjcmq-ulsmiyo completes the activity by him/herself with no assistance from a helper. 5-Set-up or Clean-up Assistance-helper sets up or cleans up; patient completes activity. [place] assists only prior to or following the activity. 4-Supervision or Touching Assistance-helper provides verbal cues and/or touching/steadying and/or contact guard assistance as patient completes activity. Assistance may be provided throughout the activity or intermittently. 3-Partial/Moderate Assistance-helper does LESS THAN HALF the effort. [place] lifts, holds or supports trunk or limbs, but provides less than half the effort. 2-Substantial/Maximal Assistance-helper does MORE THAN HALF the effort. [place] lifts or holds trunk or limbs and provides more than half the effort. 7-Peylndcrr-xtbcwu does ALL the effort. Patient does none of the effort to complete the activity. Or, the assistance of 2 or more helpers is required for the patient to complete the activity. If activity was not attempted, code reason: 7-Patient Refused. 9-Not Applicable-not attempted and the patient did not perform the activity before the current illness, exacerbation or injury. 10-Not Attempted due to Environmental Limitations-(lack of equipment, weather restraints, etc.). 88-Not Attempted due to Medical Conditions or Safety Concerns. Roll Left to Right (QC): 4 (SBA) Sit to Lying (QC): 4 (SBA) Sit to Stand (QC): 4 (CGA) Chair/Mzd-yc-Iccvk Xfer(QC): 4 (CGA) Car Transfer (QC): 4 (CGA) Gait Training Does the Patient Walk?: Yes Walk 10 feet (QC): 4 (CGA) Walk 50 ft with 2 Turns(QC): 4 (CGA) Walk 150 ft (QC): 4 (CGA) Walking 10ft/uneven surface-QC: 4 (CGA) Gait Assistive Device: FWW Wheelchair Training Does the Pt Use a Wheelchair?: No Wheel 50 ft with 2 turns (QC): 9 Wheel 150 ft (QC): 9 Type of Wheelchair: N/A Stair Training #of Steps: 12 1 Step (curb) (QC): 4 (CGA) 4 Steps (QC): 4 (CGA) 12 Steps (QC): 4 (CGA) Balance Picking up an Object (QC): 4 (CGA) ADL-Treatment Eating (QC): 6 Oral Hygiene (QC): 6 Shower/Bathe Self (QC): 6 Upper Body Dressing (QC): 6 Lower Body Dressing (QC): 6 On/Off Footwear (QC): 6 Toileting Hygiene (QC): 6 Toilet Transfer (QC): 6 Assessment/Plan Assessment and Plan Assess & Plan/Chief Complaint Assessment: Congestive heart failure non-volume overload type due to cardiac arrhythmia with cardiac pauses Possible pacemaker required Atrial fibrillation Oral anticoagulation Hypothyroidism Hypertension Falls Left leg pain due to fall with hematoma from oral anticoagulation Orthostasis with near syncope on 11/11/22 Plan: PT and OT Supportive care Fall risk 11/10/2022: Continue aggressive therapy Fall risk 11/11/2022: Dr Green to manage meds due to orthostasis 11/12/2022: Monitor syncope (1) Chronic heart failure with preserved ejection fraction (HFpEF) (2) Near syncope (3) Atrial fibrillation Status: Acute (4) Left foot pain Status: Acute (5) Mixed hyperlipidemia (6) Debility (7) Hypertension Status: Acute ELVA BEAUCHAMP DO Nov 12, 2022 05:32
[2022-11-12 07:32] VITALS: BP 66/38
[2022-11-12 07:33] VITALS: BP 120/54
[2022-11-12] MEDS ORDERED: LOSARTAN 50 MG (COZAAR) TAB PO SCH (09:00)
[2022-11-12] MEDS: CYANOCOBALAMIN 1,000 MCG (VITAMIN B-12) TABLET PO SCH (09:01)
[2022-11-12] MEDS: VITAMIN D3 25 MCG (1,000 UNITS) TABLET PO SCH ×2 (09:01→17:35)
[2022-11-12] MEDS: LORATADINE (CLARITIN) 10 MG TAB PO SCH (09:01)
[2022-11-12] MEDS: polyethylene glycoL POWDER 17 GM (MIRALAX) PACK PO SCH ×2 (09:04→21:18)
[2022-11-12] MEDS: SENNA W/DOCUSATE (SENOKOT S) TABLET PO SCH ×2 (09:04→21:18)
[2022-11-12] MEDS: DOCUSATE SODIUM 100 MG (COLACE) CAP PO SCH ×2 (09:04→21:18)
[2022-11-12] MEDS: FLECAINIDE 100 MG (TAMBOCOR) TAB PO SCH ×2 (09:11→21:18)
[2022-11-12] MEDS: dilTIAZem120 MG (CARDIZEM CD) CAP PO SCH (09:11)
--- NOTE | 2022-11-12 09:13 | Cardiology Progress Note ---
Subjective Date Seen by Provider: Nov 12, 2022 Time Seen by Provider: 08:00 Subjective/Events-last exam Patient is sitting up in bed, noted to have episode of hypotension again this morning. Objective-Cardiology Exam Last Set of Vital Signs Vital Signs 11/10/22 11/12/22 11/12/22 11/12/22 14:35 07:32 07:33 09:07 Temp 35.9 Pulse 80 Resp 18 B/P (MAP) 120/54 (76) Pulse Ox 98 O2 Delivery Room Air O2 Flow Rate 0.00 I&O Intake and Output 11/12/22 00:00 Intake Total 1030 ml Balance 1030 ml Intake Oral 1030 ml # Voids 6 # Bowel Movements 1 General: Alert, Oriented X3 HEENT: Atraumatic, PERRLA Lungs: Clear to Auscultation, Normal Air Movement Heart: Regular Rate, Normal S1, Normal S2 Abdomen: Normal Bowel Sounds, Soft Skin: No Rashes Neuro: Normal Gait, Normal Speech Psych/Mental Status: Mental Status NL, Mood NL A/P-Cardiology Admission Diagnosis PAF HTN HLP Generalized debility/weakness Assessment/Plan Atypical chest pain, non-specific, bilateral shoulder discomfort MPI of 09-22-2022 showed no evidence of ischemia or infarction. No regional wall motion abnormality. MPI 56% Gen malaise, undetermined etiology SSS and PAF: - S/P ILR implant 03-01-[address] Garnica - continuing intermittent PAF with RVR on ILR - OAC with Xarelto - this is being followed by Dr. Miller who has advised continued medical manag ement, recommended starting Flecainide or Amiodarone per last note in Jul 2022. - ECG on 10-14-22: NSR with LBBB and PACs Patient was started on flecainide 50 mg twice daily. Continue to monitor Hypothyroidism,treated with thyroid replacement therapy. Managed by PCP Hypertension, labile blood pressure Episode of hypotension orthostatic again this morning. Patient is maintained on Cardizem CD 120 mg daily. I will hold losartan. Monitor her tolerance and response. Encourage increasing fluid intake Carotid art disease, history of s/p R CEA by Dr Adams on 05/26/21 at [facility], [place], [place] Mild bilat dz per u/s of 09-10-2021 Mitral Regurg: Echocardiogram of 12-04-[address] Garnica showed LVEF 55-65%. LA mildly dilated. Mod to severe MR. PASP 40-45 mmHg Echocardiogram of 09-02-20 showed LVEF 55-60%. Grade 1 diastolic dysfunction. Mild MR. AoV sclerosis with mild regurg. PASP 40-45 mmHg COPD with nocturnal hypoxemia, managed by her PCP Extobaccoism, quit smoking when she was in her 40's Mild pulmonary hypertension, PASP 40-45 mmHg per echo of 09-02-[address] Brown on 02-14-21 did not indicate sleep apnea - a-fib seen during the test Chronic, bilateral leg swelling, likely related to venous insuff Chronic scoliosis and degenerative cervical spinal disease (chronically stiff neck and shoulders) managed by her pcp Supervisory-Addendum Brief Supervisory Addendum Participated in pt care: history, MDM, physical Personally performed: exam, history, MDM Care discussed with: THEO Results interpretation: Verified all documentation Notes: Patient was seen and evaluated with Shanika, examination performed, management plan was discussed, agree with the current scribed note, I made few changes to the note using Italic font Patient was seen at bedside, still having orthostatic dizziness and hypotension I discontinued losartan Monitor blood pressure Recommend using compression socks. SHANIKA MONTENEGRO Nov 12, 2022 09:13 RITO EVANS MD Nov 12, 2022 10:00
--- NOTE | 2022-11-12 10:40 | Occupational Ther Daily Note ---
OT Current Status-Daily Note Subjective Pt alert and agrees to therapy. No c/o pain. During session, pt had low BP and was placed into supine position, see nrsg notes for initial BP. Normal BP after a few minutes rest. Nrsg okayed pt to continue to participate in OT session. Mental Status/Objective Patient Orientation: Person, Place, Time, Situation Attachments: Telemetry ADL-Treatment Increased time to complete all tasks due to low BP and pt being hyperverbal. SBA for toilet transfer/toileting using FWW and grabbars. Pt required encouragement to complete toilet hygiene by self due to minimal anxiety over being able to tolerate standing long enough to cleanse self. Due to low BP pt complete eating and oral care in bed. Nrsg then okayed for pt to get up to participate in OT session. After set up, pt able to complete UBD and footwear by self. SBA for safety with LBD. After session, pt lying in bed with nrsg present for procedure. Call light/phone in reach. All needs met. Therapy Code Descriptions/Definitions Functional [place] Measure: 0=Not Assessed/NA 4=Minimal Assistance 1=Total Assistance 5=Supervision or Setup 2=Maximal Assistance 6=Modified [place] 3=Moderate Assistance 7=Complete IndependenceSCALE: Activities may be completed with or without assistive devices. 4-Oextffwqrn-uqyjdhi completes the activity by him/herself with no assistance from a helper. 5-Set-up or Clean-up Assistance-helper sets up or cleans up; patient completes activity. [place] assists only prior to or following the activity. 4-Supervision or Touching Assistance-helper provides verbal cues and/or touching/steadying and/or contact guard assistance as patient completes activity. Assistance may be provided throughout the activity or intermittently. 3-Partial/Moderate Assistance-helper does LESS THAN HALF the effort. [place] lifts, holds or supports trunk or limbs, but provides less than half the effort. 2-Substantial/Maximal Assistance-helper does MORE THAN HALF the effort. [place] lifts or holds trunk or limbs and provides more than half the effort. 6-Kpqfwwzld-fdjpqe does ALL the effort. Patient does none of the effort to complete the activity. Or, the assistance of 2 or more helpers is required for the patient to complete the activity. If activity was not attempted, code reason: 7-Patient Refused. 9-Not Applicable-not attempted and the patient did not perform the activity before the current illness, exacerbation or injury. 10-Not Attempted due to Environmental Limitations-(lack of equipment, weather restraints, etc.). 88-Not Attempted due to Medical Conditions or Safety Concerns. Eating (QC): 6 Upper Body Dressing (QC): 5 Lower Body Dressing (QC): 4 On/Off Footwear: 5 Toileting Hygiene (QC): 4 Toilet Transfer (QC): 4 OT Short Term Goals Short Term Goals Time Frame: Nov 18, 2022 Shower/bathe self: 5 Upper body dressin Lower body dressin Putting on/taking off footwear: 5 OT Senior Care Goals Cafeteria Clerk Goals Time Frame: Nov 27, 2022 Acute change in mental status: 0 Inattention: 0 Disorganized thinkin Altered level of consciousness: 0 Eating (QC): 6 Oral Hygiene (QC): 6 Toileting Hygiene (QC): 6 Shower/Bathe Self (QC): 6 Upper Body Dressing (QC): 6 Lower Body Dressing (QC): 6 On/Off Footwear (QC): 6 Additional Goals: 1-Demonstrate ADL Tasks, 2-Verbalize Understanding, 3- ImproveStrength/Samy 1=Demonstrate adherence to instructed precautions during ADL tasks. 2=Patient will verbalize/demonstrate understanding of assistive devices/modifications for ADL. 3=Patient will improve strength/tolerance for activity to enable patient to perform ADL's. OT Education/Plan Problem List/Assessment Assessment: Decreased Activ Tolerance, Impaired Self-Care Skills Discharge Recommendations Plan/Recommendations: Continue POC Treatment Plan/Plan of Care Patient would benefit from OT for education, treatment and training to promote independence in ADL's, mobility, safety and/or upper extremity function for ADL's. Plan of Care: ADL Retraining, Functional Mobility, Group Exercise/Act as Ind, UE Funct Exercise/Act Treatment Duration: Nov 27, 2022 Frequency: At least 5 of 7 days/Wk (IRF) Estimated Hrs Per Day: 1.5 hours per day Agreement: Yes Rehab Potential: Good Time Start Time: 07:30 Stop Time: 09:00 DATE: Nov 12, 2022 Total Time Billed (hr/min): 90 Billed Treatment Time 1 vsiit-ADL 6 (90 min) MARIA C WEBER Nov 12, 2022 10:39
--- NOTE | 2022-11-12 13:50 | Physical Therapy Daily Note ---
PT Daily Note-Current Subjective Pt lying in bed upon arrival. Pt denies any pain at this time, or throughout treatment session, but reports pain in the L knee, with certain movements. Pt agreeable to PT. Pain Numeric Pain Scale: 0-No Pain Location: No Pain Reported Section J - Health Conditions 1. Rarely or not at all 2. Occasionally 3. Frequently 4. Almost constantly 8. Unable to answer Pain Effect on Sleep: 1 Pain Interference with Therapy: 1 Pain Interference w/Day-to-Day: 1 Transfers SCALE: Activities may be completed with or without assistive devices. 5-Yxfqebylpv-vbvavij completes the activity by him/herself with no assistance from a helper. 5-Set-up or Clean-up Assistance-helper sets up or cleans up; patient completes activity. [place] assists only prior to or following the activity. 4-Supervision or Touching Assistance-helper provides verbal cues and/or touching/steadying and/or contact guard assistance as patient completes activity. Assistance may be provided throughout the activity or intermittently. 3-Partial/Moderate Assistance-helper does LESS THAN HALF the effort. [place] lifts, holds or supports trunk or limbs, but provides less than half the effort. 2-Substantial/Maximal Assistance-helper does MORE THAN HALF the effort. [place] lifts or holds trunk or limbs and provides more than half the effort. 1-Bnpawqqvl-xkbcac does ALL the effort. Patient does none of the effort to complete the activity. Or, the assistance of 2 or more helpers is required for the patient to complete the activity. If activity was not attempted, code reason: 7-Patient Refused. 9-Not Applicable-not attempted and the patient did not perform the activity before the current illness, exacerbation or injury. 10-Not Attempted due to Environmental Limitations-(lack of equipment, weather restraints, etc.). 88-Not Attempted due to Medical Conditions or Safety Concerns. Roll Left & Right (QC): 4 Sit to Lying (QC): 4 Lying to Sitting/Side of Bed(Q: 4 Sit to Stand (QC): 4 Chair/Kvt-iu-Ahzml Xfer(QC): 4 Weight Bearing Right Lower Extremity: Right Full Weight Bearing Full Weight Bearing Gait Training Does the Patient Walk?: Yes Walk 10 feet (QC): 4 Walk 50 ft with 2 Turns(QC): 4 Walk 150 ft (QC): 4 Gait Persons Needed: 1 Gait Assistive Device: FWW Wheelchair Training Does the Pt Use a Wheelchair?: No Treatments Pt completed bed mobility tasks with SBA. Pt completed functional transfers with SBA. Pt ambulated 150ft x 2 and 350ft with the FWW and CGA/SBA. Pt completed seated B LE Ther Ex x 20 reps each with the red Tband: PF/DF, LAQ, Marching, Hip add/abd/ext, and HS curls. Pt completed sit to stand x 10 reps with SBA and good technique, hand placement, and safety awareness. Pt completed standing B LE Ther Ex x 10-15 reps each with B UE support and SBA: PF/DF, Marching, Hip abd/ext, HS curls, and Mini-squats. Pt does get distracted easily and requires cues often to stay on task. Pt left in bed, with call light in reach and all needs met, after completion of PT. Pt denies any questions or concerns. Assessment Current Status: Good Progress Pt tolerated well with good effort. Pt does become distracted often PT Product Specialist Goals Product Specialist Goals PT Product Specialist Goals Time Frame: Nov 19, 2022 Roll Left & Right (QC): 6 (Pt will be Mod I with functional mobility, with least restrictive AD, in order to be at PLOF. ) Sit to Lying (QC): 6 (Pt will be Mod I with functional mobility, with least restrictive AD, in order to be at PLOF. ) Lying-Sitting on Side/Bed(QC): 6 (Pt will be Mod I with functional mobility, with least restrictive AD, in order to be at PLOF. ) Sit to Stand (QC): 6 (Pt will be Mod I with functional mobility, with least restrictive AD, in order to be at PLOF. ) Chair/Api-pg-Xlgsu Xfer(QC): 6 (Pt will be Mod I with functional mobility, with least restrictive AD, in order to be at PLOF. ) Toilet Transfer (QC): 6 (Pt will be Mod I with functional mobility, with least restrictive AD, in order to be at PLOF. ) Car Transfer (QC): 6 (Pt will be Mod I with functional mobility, with least restrictive AD, in order to be at PLOF. ) Does the Patient Walk: Yes Walk 10 feet (QC): 6 (Pt will be Mod I with functional mobility, with least restrictive AD, in order to be at PLOF. ) Walk 50ft with 2 Turns (QC): 6 (Pt will be Mod I with functional mobility, with least restrictive AD, in order to be at PLOF. ) Walk 150 ft (QC): 6 (Pt will be Mod I with functional mobility, with least restrictive AD, in order to be at PLOF. ) Walking 10ft on Uneven Surface: 6 (Pt will be Mod I with functional mobility, with least restrictive AD, in order to be at PLOF. ) 1 Step (curb) (QC): 6 (Pt will be Mod I with functional mobility, with least restrictive AD, in order to be at PLOF. ) 4 Steps (QC): 6 (Pt will be Mod I with functional mobility, with least restrictive AD, in order to be at PLOF. ) 12 Steps (QC): 6 (Pt will be Mod I with functional mobility, with least restrictive AD, in order to be at PLOF. ) Picking up an Object (QC): 6 (Pt will be Mod I with functional mobility, with least restrictive AD, in order to be at PLOF. ) Does the Pt use WC or Scooter?: No Wheel 50 feet with 2 turns (QC: 9 Type: N/A Wheel 150 feet: 9 Type: N/A PT Plan Problem List Problem List: Activity Tolerance, Functional Strength, Safety, Balance, Gait, Transfer, Bed Mobility Treatment/Plan Treatment Plan: Continue Plan of Care Treatment Plan: Bed Mobility, Concurrent Therapy, Education, Functional Activity Samy, Functional Strength, Group Therapy, Gait, Safety, Therapeutic Exercise, Transfers Treatment Duration: Nov 19, 2022 Frequency: At least 5 of 7 days/Wk (IRF) Estimated Hrs Per Day: 1.5 hours per day Patient and/or Family Agrees t: Yes Safety Risks/Education Patient Education: Gait Training, Transfer Techniques, Safety Issues Teaching Recipient: Patient Teaching Methods: Demonstration, Discussion Response to Teaching: Verbalize Understanding, Return Demonstration Discharge Recommendations Therapy Discharge Recommendati: Home & Family Discharge Status/Home Program Cont per POC Barriers to Progress weakness, endurance Target Placement home with support Time Time In: 1000 Time Out: 1130 DATE: Nov 12, 2022 Total Billed Treatment Time: 90 Total Billed Treatment 90 min 1 visit EX x 2 GT x 2 FA x 2 ADALBERTO ROCHA PT Nov 12, 2022 13:50
[2022-11-12] MEDS: RIVAROXABAN 15 MG TABLET (XARELTO) PO SCH (17:36)
[2022-11-12 19:46] VITALS: BP 179/81
[2022-11-12 20:30] VITALS: BP 173/84
[2022-11-12 20:50] VITALS: BP 154/80
[2022-11-12] MEDS: LACTOBACILLUS ACIDOPHILUS (PROBIOTIC) CAPSULE PO SCH (21:17)
[2022-11-12] MEDS: ASPIRIN E.C. 81 MG (ECOTRIN) TAB PO SCH (21:18)
[2022-11-12] MEDS: SERTRALINE 50 MG (ZOLOFT) TABLET PO SCH (21:18)
[2022-11-13] MEDS: LEVOTHYROXINE 75 MCG (LEVOTHROID) TABLET PO SCH (02:44)
[2022-11-13] MEDS: ACETAMINOPHEN 325 MG TABLET PO PRN (04:23)
--- NOTE | 2022-11-13 05:37 | PM&R Progress Note ---
Subjective HPI/CC On Admission Date Seen by Provider: Nov 13, 2022 Time Seen by Provider: 12:00 Subjective/Events-last exam 11/13/2022: Patient doing a lot better No more orthostasis today Working with therapy Monitor closely 11/12/2022: Patient doing a lot better Had another orthostatic syncopal episode and her blood pressure was back in the 60s No other concerns 11/11/2022: Doing a lot better No pain except left leg No falls Improved Orthostasis did occur with similar symptoms as she has had with syncopal episodes Dr Green will adjust meds 11/10/2022: Patient doing dramatically better No pain is reported except for left leg Able to ambulate a little bit Still very slow to recover Major fall risk Review of Systems General: Fatigue, Malaise Objective Exam Vital Signs Vital Signs Date Time Temp Pulse Resp B/P (MAP) Pulse Ox O2 Delivery O2 Flow Rate FiO2 11/14/22 01:00 101 11/13/22 20:39 Room Air 11/13/22 20:18 36.6 16 157/74 (101) 98 11/10/22 14:35 0.00 Capillary Refill : General Appearance: No Apparent Distress, WD/WN, Chronically ill, Thin HEENT: PERRL/EOMI, Normal ENT Inspection, Pharynx Normal Neck: Full Range of Motion, Normal Inspection, Non Tender, Supple, Carotid Bruit Respiratory: Chest Non Tender, Lungs Clear, Normal Breath Sounds, No Accessory Muscle Use, No Respiratory Distress Cardiovascular: Regular Rate, Rhythm, No Edema, No Gallop, No JVD, No Murmur, Normal Peripheral Pulses Gastrointestinal: Normal Bowel Sounds, No Organomegaly, No Pulsatile Mass, Non Tender, Soft Back: Normal Inspection, No CVA Tenderness, No Vertebral Tenderness, Decreased Range of Motion (left leg) Extremity: Normal Capillary Refill, Normal Inspection, Normal Range of Motion (Except left leg), Non Tender, No Calf Tenderness, No Pedal Edema Neurologic/Psychiatric: Alert, Oriented x3, No Motor/Sensory Deficits, Normal Mood/Affect, Abnormal Gait, Motor Weakness (Left leg) Skin: Normal Color, Warm/Dry, Ecchymosis (left leg) Lymphatic: No Adenopathy Results/Procedures Lab Patient resulted labs reviewed. FIM Transfers Therapy Code Descriptions/Definitions Functional [place] Measure: 0=Not Assessed/NA 4=Minimal Assistance 1=Total Assistance 5=Supervision or Setup 2=Maximal Assistance 6=Modified [place] 3=Moderate Assistance 7=Complete IndependenceSCALE: Activities may be completed with or without assistive devices. 9-Isgcmeyfsi-znemnwo completes the activity by him/herself with no assistance from a helper. 5-Set-up or Clean-up Assistance-helper sets up or cleans up; patient completes activity. [place] assists only prior to or following the activity. 4-Supervision or Touching Assistance-helper provides verbal cues and/or touching/steadying and/or contact guard assistance as patient completes activity. Assistance may be provided throughout the activity or intermittently. 3-Partial/Moderate Assistance-helper does LESS THAN HALF the effort. [place] lifts, holds or supports trunk or limbs, but provides less than half the effort. 2-Substantial/Maximal Assistance-helper does MORE THAN HALF the effort. [place] lifts or holds trunk or limbs and provides more than half the effort. 5-Emxsjhmkv-wtguns does ALL the effort. Patient does none of the effort to complete the activity. Or, the assistance of 2 or more helpers is required for the patient to complete the activity. If activity was not attempted, code reason: 7-Patient Refused. 9-Not Applicable-not attempted and the patient did not perform the activity before the current illness, exacerbation or injury. 10-Not Attempted due to Environmental Limitations-(lack of equipment, weather restraints, etc.). 88-Not Attempted due to Medical Conditions or Safety Concerns. Roll Left to Right (QC): 4 Sit to Lying (QC): 4 Sit to Stand (QC): 4 Chair/Gjv-mm-Dcscq Xfer(QC): 4 Car Transfer (QC): 4 (CGA) Gait Training Does the Patient Walk?: Yes Walk 10 feet (QC): 4 Walk 50 ft with 2 Turns(QC): 4 Walk 150 ft (QC): 4 Walking 10ft/uneven surface-QC: 4 (CGA) Gait Persons Needed: 1 Gait Assistive Device: FWW Wheelchair Training Does the Pt Use a Wheelchair?: No Wheel 50 ft with 2 turns (QC): 9 Wheel 150 ft (QC): 9 Type of Wheelchair: N/A Stair Training #of Steps: 12 1 Step (curb) (QC): 4 (CGA) 4 Steps (QC): 4 (CGA) 12 Steps (QC): 4 (CGA) Balance Picking up an Object (QC): 4 (CGA) ADL-Treatment Eating (QC): 6 Oral Hygiene (QC): 6 Shower/Bathe Self (QC): 6 Upper Body Dressing (QC): 5 Lower Body Dressing (QC): 4 On/Off Footwear (QC): 5 Toileting Hygiene (QC): 4 Toilet Transfer (QC): 4 Assessment/Plan Assessment and Plan Assess & Plan/Chief Complaint Assessment: Congestive heart failure non-volume overload type due to cardiac arrhythmia with cardiac pauses Possible pacemaker required Atrial fibrillation Oral anticoagulation Hypothyroidism Hypertension Falls Left leg pain due to fall with hematoma from oral anticoagulation Orthostasis with near syncope on 11/11/22 Plan: PT and OT Supportive care Fall risk 11/10/2022: Continue aggressive therapy Fall risk 11/11/2022: Dr Green to manage meds due to orthostasis 11/12/2022: Monitor syncope 11/13/2022: Monitor for orthostasis (1) Chronic heart failure with preserved ejection fraction (HFpEF) (2) Near syncope (3) Atrial fibrillation Status: Acute (4) Left foot pain Status: Acute (5) Mixed hyperlipidemia (6) Debility (7) Hypertension Status: Acute ELVA BEAUCHAMP DO Nov 13, 2022 05:37
[2022-11-13] MEDS: FLECAINIDE 100 MG (TAMBOCOR) TAB PO SCH ×2 (07:28→20:31)
[2022-11-13] MEDS: SENNA W/DOCUSATE (SENOKOT S) TABLET PO SCH ×2 (07:29→20:33)
[2022-11-13] MEDS: CYANOCOBALAMIN 1,000 MCG (VITAMIN B-12) TABLET PO SCH (07:29)
[2022-11-13] MEDS: VITAMIN D3 25 MCG (1,000 UNITS) TABLET PO SCH ×2 (07:30→18:07)
[2022-11-13] MEDS: dilTIAZem120 MG (CARDIZEM CD) CAP PO SCH (07:30)
[2022-11-13] MEDS: LORATADINE (CLARITIN) 10 MG TAB PO SCH (07:31)
[2022-11-13 07:34] VITALS: BP 142/75
--- NOTE | 2022-11-13 07:40 | Occupational Ther Daily Note ---
OT Current Status-Daily Note Subjective Pt agreeable to OT Tx, 0/10 pain. Pt hyperverbal throughout tx, requiring redirection to task. BP 142/75 at start of tx Mental Status/Objective Patient Orientation: Normal For Age ADL-Treatment Therapy Code Descriptions/Definitions Functional [place] Measure: 0=Not Assessed/NA 4=Minimal Assistance 1=Total Assistance 5=Supervision or Setup 2=Maximal Assistance 6=Modified [place] 3=Moderate Assistance 7=Complete IndependenceSCALE: Activities may be completed with or without assistive devices. 2-Aklocxltzg-axbsvqz completes the activity by him/herself with no assistance from a helper. 5-Set-up or Clean-up Assistance-helper sets up or cleans up; patient completes activity. [place] assists only prior to or following the activity. 4-Supervision or Touching Assistance-helper provides verbal cues and/or touching/steadying and/or contact guard assistance as patient completes activity. Assistance may be provided throughout the activity or intermittently. 3-Partial/Moderate Assistance-helper does LESS THAN HALF the effort. [place] lif ts, holds or supports trunk or limbs, but provides less than half the effort. 2-Substantial/Maximal Assistance-helper does MORE THAN HALF the effort. [place] lifts or holds trunk or limbs and provides more than half the effort. 9-Sgkjdxhwz-uxgmne does ALL the effort. Patient does none of the effort to complete the activity. Or, the assistance of 2 or more helpers is required for the patient to complete the activity. If activity was not attempted, code reason: 7-Patient Refused. 9-Not Applicable-not attempted and the patient did not perform the activity before the current illness, exacerbation or injury. 10-Not Attempted due to Environmental Limitations-(lack of equipment, weather restraints, etc.). 88-Not Attempted due to Medical Conditions or Safety Concerns. Eating (QC): 6 Oral Hygiene (QC): 6 Shower/Bathe Self (QC): 6 Upper Body Dressing (QC): 6 Lower Body Dressing (QC): 6 On/Off Footwear: 6 Toileting Hygiene (QC): 6 Other Treatment Pt at EOB, finished breakfast IND. Pt used FWW to gather clothes from closet, IND, no LOB. Pt transferred into bathroom. Pt completed ADLs (showering, dressing, toileting, grooming tasks), IND using FWW. Pt did not have any signs/symptoms of low blood pressure throughout tx. Pt transferred to [facility] using FWW. Pt provided with and educated on theraband UE exercises with moderate resistance theraband, she verbalized understanding of exercises. Copy of HEP left with pt, copy placed in pt's chart, and 1 copy attached to pt's dry erase board in her room. Post tx, pt in recliner, call light in reach and all needs met. Education OT Patient Education: Correct positioning, Energy conservation, Modified ADL techniques, Progress toward Goal/Update tx plan, Purpose of tx/functional activities, Rehab process Teaching Recipient: Patient Teaching Methods: Discussion Response to Teaching: Verbalize Understanding OT Short Term Goals Short Term Goals Time Frame: Nov 18, 2022 Shower/bathe self: 5 Upper body dressin Lower body dressin Putting on/taking off footwear: 5 OT Jail Goals Jail Goals Time Frame: Nov 27, 2022 Acute change in mental status: 0 Inattention: 0 Disorganized thinkin Altered level of consciousness: 0 Eating (QC): 6 Oral Hygiene (QC): 6 Toileting Hygiene (QC): 6 Shower/Bathe Self (QC): 6 Upper Body Dressing (QC): 6 Lower Body Dressing (QC): 6 On/Off Footwear (QC): 6 Additional Goals: 1-Demonstrate ADL Tasks, 2-Verbalize Understanding, 3- ImproveStrength/Samy 1=Demonstrate adherence to instructed precautions during ADL tasks. 2=Patient will verbalize/demonstrate understanding of assistive devices/mod ifications for ADL. 3=Patient will improve strength/tolerance for activity to enable patient to perform ADL's. OT Education/Plan Problem List/Assessment Assessment: Decreased Activ Tolerance, Decreased UE Strength, Impaired I ADL's Discharge Recommendations Plan/Recommendations: Continue POC Treatment Plan/Plan of Care Patient would benefit from OT for education, treatment and training to promote independence in ADL's, mobility, safety and/or upper extremity function for ADL's. Plan of Care: ADL Retraining, Functional Mobility, Group Exercise/Act as Ind, UE Funct Exercise/Act Treatment Duration: Nov 27, 2022 Frequency: At least 5 of 7 days/Wk (IRF) Estimated Hrs Per Day: 1.5 hours per day Agreement: Yes Rehab Potential: Good Time Start Time: 07:20 Stop Time: 08:50 DATE: Nov 13, 2022 Total Time Billed (hr/min): 90 Billed Treatment Time 1, ADL 6 BERTRAM SCHULTZ OT Nov 13, 2022 07:40
[2022-11-13] MEDS: polyethylene glycoL POWDER 17 GM (MIRALAX) PACK PO SCH ×2 (08:39→20:33)
[2022-11-13] MEDS: DOCUSATE SODIUM 100 MG (COLACE) CAP PO SCH ×2 (09:16→20:31)
--- NOTE | 2022-11-13 14:41 | Physical Therapy Daily Note ---
PT Daily Note-Current Subjective Pt reports she is doing well today and is agreeable to PT. Pt denies pain, besides in the L knee, with certain movements. Pain Numeric Pain Scale: 0-No Pain Location: No Pain Reported Section J - Health Conditions 1. Rarely or not at all 2. Occasionally 3. Frequently 4. Almost constantly 8. Unable to answer Pain Effect on Sleep: 1 Pain Interference with Therapy: 1 Pain Interference w/Day-to-Day: 1 Transfers SCALE: Activities may be completed with or without assistive devices. 2-Lukewkfafv-pkqihsi completes the activity by him/herself with no assistance from a helper. 5-Set-up or Clean-up Assistance-helper sets up or cleans up; patient completes activity. [place] assists only prior to or following the activity. 4-Supervision or Touching Assistance-helper provides verbal cues and/or touching/steadying and/or contact guard assistance as patient completes activity. Assistance may be provided throughout the activity or intermittently. 3-Partial/Moderate Assistance-helper does LESS THAN HALF the effort. [place] lifts, holds or supports trunk or limbs, but provides less than half the effort. 2-Substantial/Maximal Assistance-helper does MORE THAN HALF the effort. [place] lifts or holds trunk or limbs and provides more than half the effort. 0-Uvlzxoiqy-tyfdac does ALL the effort. Patient does none of the effort to complete the activity. Or, the assistance of 2 or more helpers is required for the patient to complete the activity. If activity was not attempted, code reason: 7-Patient Refused. 9-Not Applicable-not attempted and the patient did not perform the activity before the current illness, exacerbation or injury. 10-Not Attempted due to Environmental Limitations-(lack of equipment, weather restraints, etc.). 88-Not Attempted due to Medical Conditions or Safety Concerns. Sit to Stand (QC): 5 Chair/Pap-vq-Ltjod Xfer(QC): 5 Weight Bearing Right Lower Extremity: Right Full Weight Bearing Left Lower Extremity: Left Full Weight Bearing Gait Training Does the Patient Walk?: Yes Walk 10 feet (QC): 4 Walk 50 ft with 2 Turns(QC): 4 Walk 150 ft (QC): 4 Gait Persons Needed: 1 Gait Assistive Device: FWW Wheelchair Training Does the Pt Use a Wheelchair?: No Wheel 50 ft with 2 turns (QC): 9 Wheel 150 ft (QC): 9 Type of Wheelchair: N/A Treatments Pt completed functional transfers with SBA/Mod I. Pt ambulated 900ft x 2 with the FWW and SBA. Pt completed seated B LE Ther Ex x 20 reps each with the red Tband: PF/DF, LAQ, Marching, Hip add/abd/ext, and HS curls. Pt completed standing B LE Ther Ex x 15 reps each: PF/DF, Marching, Hip abd/ext, HS curls, and Mini-squats. Pt completed sit to stand x 15 reps with Mod I. Pt cont to require several v/c to stay on task. Pt is easily distracted. Pt in room, sitting up in chair, call light in reach, and all needs met, after treatment session. Assessment Current Status: Good Progress Pt tolerated PT well with good effort; pt becomes distracted easily PT [place] Goals [place] Goals PT Retirement Goals Time Frame: Nov 19, 2022 Roll Left & Right (QC): 6 (Pt will be Mod I with functional mobility, with least restrictive AD, in order to be at PLOF. ) Sit to Lying (QC): 6 (Pt will be Mod I with functional mobility, with least restrictive AD, in order to be at PLOF. ) Lying-Sitting on Side/Bed(QC): 6 (Pt will be Mod I with functional mobility, with least restrictive AD, in order to be at PLOF. ) Sit to Stand (QC): 6 (Pt will be Mod I with functional mobility, with least restrictive AD, in order to be at PLOF. ) Chair/Zqh-ob-Varyj Xfer(QC): 6 (Pt will be Mod I with functional mobility, with least restrictive AD, in order to be at PLOF. ) Toilet Transfer (QC): 6 (Pt will be Mod I with functional mobility, with least restrictive AD, in order to be at PLOF. ) Car Transfer (QC): 6 (Pt will be Mod I with functional mobility, with least restrictive AD, in order to be at PLOF. ) Does the Patient Walk: Yes Walk 10 feet (QC): 6 (Pt will be Mod I with functional mobility, with least restrictive AD, in order to be at PLOF. ) Walk 50ft with 2 Turns (QC): 6 (Pt will be Mod I with functional mobility, with least restrictive AD, in order to be at PLOF. ) Walk 150 ft (QC): 6 (Pt will be Mod I with functional mobility, with least restrictive AD, in order to be at PLOF. ) Walking 10ft on Uneven Surface: 6 (Pt will be Mod I with functional mobility, with least restrictive AD, in order to be at PLOF. ) 1 Step (curb) (QC): 6 (Pt will be Mod I with functional mobility, with least restrictive AD, in order to be at PLOF. ) 4 Steps (QC): 6 (Pt will be Mod I with functional mobility, with least restrictive AD, in order to be at PLOF. ) 12 Steps (QC): 6 (Pt will be Mod I with functional mobility, with least restrictive AD, in order to be at PLOF. ) Picking up an Object (QC): 6 (Pt will be Mod I with functional mobility, with least restrictive AD, in order to be at PLOF. ) Does the Pt use WC or Scooter?: No Wheel 50 feet with 2 turns (QC: 9 Type: N/A Wheel 150 feet: 9 Type: N/A PT Plan Problem List Problem List: Activity Tolerance, Functional Strength, Safety, Balance, Gait, Transfer, Bed Mobility Treatment/Plan Treatment Plan: Continue Plan of Care Treatment Plan: Bed Mobility, Concurrent Therapy, Education, Functional Activity Samy, Functional Strength, Group Therapy, Gait, Safety, Therapeutic Exercise, Transfers Treatment Duration: Nov 19, 2022 Frequency: At least 5 of 7 days/Wk (IRF) Estimated Hrs Per Day: 1.5 hours per day Patient and/or Family Agrees t: Yes Safety Risks/Education Patient Education: Gait Training, Transfer Techniques, Safety Issues Teaching Recipient: Patient Teaching Methods: Demonstration, Discussion Response to Teaching: Verbalize Understanding, Return Demonstration, Reinforcement Needed Discharge Recommendations Therapy Discharge Recommendati: Home & Family Discharge Status/Home Program Cont per POC Barriers to Progress BP issues? Target Placement Home with CG A Time Time In: 1000 Time Out: 1135 DATE: Nov 13, 2022 Total Billed Treatment Time: 95 Total Billed Treatment 95 min 1 visit GT x 3 EX x 2 FA x 1 ADALBERTO ROCHA PT Nov 13, 2022 14:41
[2022-11-13] MEDS: RIVAROXABAN 15 MG TABLET (XARELTO) PO SCH (18:07)
[2022-11-13 20:18] VITALS: BP 157/74
[2022-11-13] MEDS: LACTOBACILLUS ACIDOPHILUS (PROBIOTIC) CAPSULE PO SCH (20:31)
[2022-11-13] MEDS: ASPIRIN E.C. 81 MG (ECOTRIN) TAB PO SCH (20:31)
[2022-11-13] MEDS: SERTRALINE 50 MG (ZOLOFT) TABLET PO SCH (20:31)
[2022-11-14] MEDS: LEVOTHYROXINE 88 MCG (LEVOTHORID) TAB PO SCH (02:08)
[2022-11-14 07:19] VITALS: BP 157/79
--- NOTE | 2022-11-14 07:20 | PM&R Progress Note ---
Subjective HPI/CC On Admission Date Seen by Provider: Nov 14, 2022 Time Seen by Provider: 12:30 Subjective/Events-last exam 11/14/2022: Patient doing much better No more syncopal episodes Dr. Green appreciated 11/13/2022: Patient doing a lot better No more orthostasis today Working with therapy Monitor closely 11/12/2022: Patient doing a lot better Had another orthostatic syncopal episode and her blood pressure was back in the 60s No other concerns 11/11/2022: Doing a lot better No pain except left leg No falls Improved Orthostasis did occur with similar symptoms as she has had with syncopal episodes Dr Green will adjust meds 11/10/2022: Patient doing dramatically better No pain is reported except for left leg Able to ambulate a little bit Still very slow to recover Major fall risk Review of Systems General: Fatigue, Malaise Objective Exam Vital Signs Vital Signs Date Time Temp Pulse Resp B/P (MAP) Pulse Ox O2 Delivery O2 Flow Rate FiO2 11/14/22 13:00 106 11/14/22 09:04 Room Air 11/14/22 07:19 36.4 18 157/79 (105) 97 11/10/22 14:35 0.00 Capillary Refill : General Appearance: No Apparent Distress, WD/WN, Chronically ill, Thin HEENT: PERRL/EOMI, Normal ENT Inspection, Pharynx Normal Neck: Full Range of Motion, Normal Inspection, Non Tender, Supple, Carotid Bruit Respiratory: Chest Non Tender, Lungs Clear, Normal Breath Sounds, No Accessory Muscle Use, No Respiratory Distress Cardiovascular: Regular Rate, Rhythm, No Edema, No Gallop, No JVD, No Murmur, Normal Peripheral Pulses Gastrointestinal: Normal Bowel Sounds, No Organomegaly, No Pulsatile Mass, Non Tender, Soft Back: Normal Inspection, No CVA Tenderness, No Vertebral Tenderness, Decreased Range of Motion (left leg) Extremity: Normal Capillary Refill, Normal Inspection, Normal Range of Motion (Except left leg), Non Tender, No Calf Tenderness, No Pedal Edema Neurologic/Psychiatric: Alert, Oriented x3, No Motor/Sensory Deficits, Normal Mood/Affect, Abnormal Gait, Motor Weakness (Left leg) Skin: Normal Color, Warm/Dry, Ecchymosis (left leg) Lymphatic: No Adenopathy Results/Procedures Lab Patient resulted labs reviewed. FIM Transfers Therapy Code Descriptions/Definitions Functional [place] Measure: 0=Not Assessed/NA 4=Minimal Assistance 1=Total Assistance 5=Supervision or Setup 2=Maximal Assistance 6=Modified [place] 3=Moderate Assistance 7=Complete IndependenceSCALE: Activities may be completed with or without assistive devices. 8-Kncyvkwrbt-ansogrj completes the activity by him/herself with no assistance from a helper. 5-Set-up or Clean-up Assistance-helper sets up or cleans up; patient completes activity. [place] assists only prior to or following the activity. 4-Supervision or Touching Assistance-helper provides verbal cues and/or touching/steadying and/or contact guard assistance as patient completes activity. Assistance may be provided throughout the activity or intermittently. 3-Partial/Moderate Assistance-helper does LESS THAN HALF the effort. [place] lifts, holds or supports trunk or limbs, but provides less than half the effort. 2-Substantial/Maximal Assistance-helper does MORE THAN HALF the effort. [place] lifts or holds trunk or limbs and provides more than half the effort. 9-Tktbwtyig-fcuasi does ALL the effort. Patient does none of the effort to complete the activity. Or, the assistance of 2 or more helpers is required for the patient to complete the activity. If activity was not attempted, code reason: 7-Patient Refused. 9-Not Applicable-not attempted and the patient did not perform the activity before the current illness, exacerbation or injury. 10-Not Attempted due to Environmental Limitations-(lack of equipment, weather restraints, etc.). 88-Not Attempted due to Medical Conditions or Safety Concerns. Roll Left to Right (QC): 4 Sit to Lying (QC): 4 Sit to Stand (QC): 5 Chair/Tpn-di-Jsjub Xfer(QC): 5 Car Transfer (QC): 4 (CGA) Gait Training Does the Patient Walk?: Yes Walk 10 feet (QC): 4 Walk 50 ft with 2 Turns(QC): 4 Walk 150 ft (QC): 4 Walking 10ft/uneven surface-QC: 4 (CGA) Gait Persons Needed: 1 Gait Assistive Device: FWW Wheelchair Training Does the Pt Use a Wheelchair?: No Wheel 50 ft with 2 turns (QC): 9 Wheel 150 ft (QC): 9 Type of Wheelchair: N/A Stair Training #of Steps: 12 1 Step (curb) (QC): 4 (CGA) 4 Steps (QC): 4 (CGA) 12 Steps (QC): 4 (CGA) Balance Picking up an Object (QC): 4 (CGA) ADL-Treatment Eating (QC): 6 Oral Hygiene (QC): 6 Shower/Bathe Self (QC): 6 Upper Body Dressing (QC): 6 Lower Body Dressing (QC): 6 On/Off Footwear (QC): 6 Toileting Hygiene (QC): 6 Toilet Transfer (QC): 4 Assessment/Plan Assessment and Plan Assess & Plan/Chief Complaint Assessment: Congestive heart failure non-volume overload type due to cardiac arrhythmia with cardiac pauses Possible pacemaker required Atrial fibrillation Oral anticoagulation Hypothyroidism Hypertension Falls Left leg pain due to fall with hematoma from oral anticoagulation Orthostasis with near syncope on 11/11/22 Plan: PT and OT Supportive care Fall risk 11/10/2022: Continue aggressive therapy Fall risk 11/11/2022: Dr Green to manage meds due to orthostasis 11/12/2022: Monitor syncope 11/13/2022: Monitor for orthostasis 11/14/2022: Much improved (1) Chronic heart failure with preserved ejection fraction (HFpEF) (2) Near syncope (3) Atrial fibrillation Status: Acute (4) Left foot pain Status: Acute (5) Mixed hyperlipidemia (6) Debility (7) Hypertension Status: Acute ELVA BEAUCHAMP 10, 2023 07:20
[2022-11-14] MEDS: polyethylene glycoL POWDER 17 GM (MIRALAX) PACK PO SCH ×2 (08:43→21:22)
[2022-11-14] MEDS: VITAMIN D3 25 MCG (1,000 UNITS) TABLET PO SCH ×2 (08:53→17:21)
[2022-11-14] MEDS: CYANOCOBALAMIN 1,000 MCG (VITAMIN B-12) TABLET PO SCH (08:53)
[2022-11-14] MEDS: DOCUSATE SODIUM 100 MG (COLACE) CAP PO SCH ×2 (08:53→21:37)
[2022-11-14] MEDS: dilTIAZem120 MG (CARDIZEM CD) CAP PO SCH (08:53)
[2022-11-14] MEDS: LORATADINE (CLARITIN) 10 MG TAB PO SCH (08:53)
[2022-11-14] MEDS: FLECAINIDE 100 MG (TAMBOCOR) TAB PO SCH ×2 (08:53→21:38)
[2022-11-14] MEDS: SENNA W/DOCUSATE (SENOKOT S) TABLET PO SCH ×2 (08:53→21:37)
--- NOTE | 2022-11-14 09:54 | Cardiology Progress Note ---
Subjective Date Seen by Provider: Nov 14, 2022 Time Seen by Provider: 09:52 Subjective/Events-last exam Patient was seen at bedside, laying down comfortably. Objective-Cardiology Exam Last Set of Vital Signs Vital Signs 11/10/22 11/14/22 11/14/22 14:35 07:19 09:04 Temp 36.4 Pulse 102 Resp 18 B/P (MAP) 157/79 (105) Pulse Ox 97 O2 Delivery Room Air O2 Flow Rate 0.00 I&O Intake and Output 11/14/22 00:00 Intake Total 1350 ml Balance 1350 ml Intake Oral 1350 ml # Voids 7 # Bowel Movements 1 General: Alert, Oriented X3 HEENT: Atraumatic, PERRLA Lungs: Clear to Auscultation, Normal Air Movement Heart: Regular Rate, Normal S1, Normal S2 Abdomen: Normal Bowel Sounds, Soft Skin: No Rashes Neuro: Normal Gait, Normal Speech Psych/Mental Status: Mental Status NL, Mood NL A/P-Cardiology Admission Diagnosis PAF HTN HLP Generalized debility/weakness Assessment/Plan Atypical chest pain, non-specific, bilateral shoulder discomfort MPI of 09-22-2022 showed no evidence of ischemia or infarction. No regional wall motion abnormality. MPI 56% Gen malaise, undetermined etiology Receiving physical therapy. Improving Orthostatic hypotension, improving. Better today. SSS and PAF: - S/P ILR implant 03-01-[address] Garnica - continuing intermittent PAF with RVR on ILR - OAC with Xarelto - this is being followed by Dr. Miller who has advised continued medical management, recommended starting Flecainide or Amiodarone per last note in Jul 2022. - ECG on 10-14-22: NSR with LBBB and PACs Patient was started on flecainide 50 mg twice daily. Continue to monitor Hypothyroidism,treated with thyroid replacement therapy. Managed by PCP Hypertension, labile blood pressure Excepting higher blood pressure reading to avoid hypotensive episodes. Continue to monitor Carotid art disease, history of s/p R CEA by Dr Adams on 05/26/21 at [place], [place] Mild bilat dz per u/s of 09-10-2021 Mitral Regurg: Echocardiogram of 12-04-[address] Garnica showed LVEF 55-65%. LA mildly dilated. Mod to severe MR. PASP 40-45 mmHg Echocardiogram of 09-02-20 showed LVEF 55-60%. Grade 1 diastolic dysfunction. Mild MR. AoV sclerosis with mild regurg. PASP 40-45 mmHg COPD with nocturnal hypoxemia, managed by her PCP Extobaccoism, quit smoking when she was in her 40's Mild pulmonary hypertension, PASP 40-45 mmHg per echo of 09-02-[address] Brown on 02-14-21 did not indicate sleep apnea - a-fib seen during the test Chronic, bilateral leg swelling, likely related to venous insuff Chronic scoliosis and degenerative cervical spinal disease (chronically stiff neck and shoulders) managed by her pcp RITO EVANS MD Nov 14, 2022 09:53
[2022-11-14] MEDS: ACETAMINOPHEN 325 MG TABLET PO PRN (15:24)
[2022-11-14] MEDS: RIVAROXABAN 15 MG TABLET (XARELTO) PO SCH (17:21)
[2022-11-14 19:13] VITALS: BP 161/90
[2022-11-14] MEDS: LACTOBACILLUS ACIDOPHILUS (PROBIOTIC) CAPSULE PO SCH (21:37)
[2022-11-14] MEDS: ASPIRIN E.C. 81 MG (ECOTRIN) TAB PO SCH (21:37)
[2022-11-14] MEDS: SERTRALINE 50 MG (ZOLOFT) TABLET PO SCH (21:38)
[2022-11-15] MEDS: LEVOTHYROXINE 88 MCG (LEVOTHORID) TAB PO SCH (05:03)
--- NOTE | 2022-11-15 06:19 | PM&R Progress Note ---
Subjective HPI/CC On Admission Date Seen by Provider: Nov 15, 2022 Time Seen by Provider: 09:00 Subjective/Events-last exam 11/15/2022: Patient doing a lot better No pain is reported Taking a nap currently RN has no concerns Bowels are moving 11/14/2022: Patient doing much better No more syncopal episodes Dr. Green appreciated 11/13/2022: Patient doing a lot better No more orthostasis today Working with therapy Monitor closely 11/12/2022: Patient doing a lot better Had another orthostatic syncopal episode and her blood pressure was back in the 60s No other concerns 11/11/2022: Doing a lot better No pain except left leg No falls Improved Orthostasis did occur with similar symptoms as she has had with syncopal episodes Dr Green will adjust meds 11/10/2022: Patient doing dramatically better No pain is reported except for left leg Able to ambulate a little bit Still very slow to recover Major fall risk Review of Systems General: Fatigue, Malaise Objective Exam Vital Signs Vital Signs Date Time Temp Pulse Resp B/P (MAP) Pulse Ox O2 Delivery O2 Flow Rate FiO2 11/15/22 12:36 107 11/15/22 09:00 Room Air 11/15/22 08:00 36.4 18 133/63 (86) 97 11/10/22 14:35 0.00 Capillary Refill : General Appearance: No Apparent Distress, WD/WN, Chronically ill, Thin HEENT: PERRL/EOMI, Normal ENT Inspection, Pharynx Normal Neck: Full Range of Motion, Normal Inspection, Non Tender, Supple, Carotid Bruit Respiratory: Chest Non Tender, Lungs Clear, Normal Breath Sounds, No Accessory Muscle Use, No Respiratory Distress Cardiovascular: Regular Rate, Rhythm, No Edema, No Gallop, No JVD, No Murmur, Normal Peripheral Pulses Gastrointestinal: Normal Bowel Sounds, No Organomegaly, No Pulsatile Mass, Non Tender, Soft Back: Normal Inspection, No CVA Tenderness, No Vertebral Tenderness, Decreased Range of Motion (left leg) Extremity: Normal Capillary Refill, Normal Inspection, Normal Range of Motion (Except left leg), Non Tender, No Calf Tenderness, No Pedal Edema Neurologic/Psychiatric: Alert, Oriented x3, No Motor/Sensory Deficits, Normal Mood/Affect, Abnormal Gait, Motor Weakness (Left leg) Skin: Normal Color, Warm/Dry, Ecchymosis (left leg) Lymphatic: No Adenopathy Results/Procedures Lab Laboratory Tests 11/15/22 06:05 Patient resulted labs reviewed. FIM Transfers Therapy Code Descriptions/Definitions Functional [place] Measure: 0=Not Assessed/NA 4=Minimal Assistance 1=Total Assistance 5=Supervision or Setup 2=Maximal Assistance 6=Modified [place] 3=Moderate Assistance 7=Complete IndependenceSCALE: Activities may be completed with or without assistive devices. 1-Ujsadtvzlx-arkojqu completes the activity by him/herself with no assistance from a helper. 5-Set-up or Clean-up Assistance-helper sets up or cleans up; patient completes activity. [place] assists only prior to or following the activity. 4-Supervision or Touching Assistance-helper provides verbal cues and/or touching/steadying and/or contact guard assistance as patient completes acti vity. Assistance may be provided throughout the activity or intermittently. 3-Partial/Moderate Assistance-helper does LESS THAN HALF the effort. [place] lifts, holds or supports trunk or limbs, but provides less than half the effort. 2-Substantial/Maximal Assistance-helper does MORE THAN HALF the effort. [place] lifts or holds trunk or limbs and provides more than half the effort. 7-Eulkrimwu-lcuooi does ALL the effort. Patient does none of the effort to complete the activity. Or, the assistance of 2 or more helpers is required for the patient to complete the activity. If activity was not attempted, code reason: 7-Patient Refused. 9-Not Applicable-not attempted and the patient did not perform the activity before the current illness, exacerbation or injury. 10-Not Attempted due to Environmental Limitations-(lack of equipment, weather restraints, etc.). 88-Not Attempted due to Medical Conditions or Safety Concerns. Roll Left to Right (QC): 4 Sit to Lying (QC): 4 Sit to Stand (QC): 5 Chair/Upk-bl-Azbpr Xfer(QC): 5 Car Transfer (QC): 4 (CGA) Gait Training Does the Patient Walk?: Yes Walk 10 feet (QC): 4 Walk 50 ft with 2 Turns(QC): 4 Walk 150 ft (QC): 4 Walking 10ft/uneven surface-QC: 4 (CGA) Gait Persons Needed: 1 Gait Assistive Device: FWW Wheelchair Training Does the Pt Use a Wheelchair?: No Wheel 50 ft with 2 turns (QC): 9 Wheel 150 ft (QC): 9 Type of Wheelchair: N/A Stair Training #of Steps: 12 1 Step (curb) (QC): 4 (CGA) 4 Steps (QC): 4 (CGA) 12 Steps (QC): 4 (CGA) Balance Picking up an Object (QC): 4 (CGA) ADL-Treatment Eating (QC): 6 Oral Hygiene (QC): 6 Shower/Bathe Self (QC): 6 Upper Body Dressing (QC): 6 Lower Body Dressing (QC): 6 On/Off Footwear (QC): 6 Toileting Hygiene (QC): 6 Toilet Transfer (QC): 4 Assessment/Plan Assessment and Plan Assess & Plan/Chief Complaint Assessment: 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 Possible pacemaker required Atrial fibrillation Oral anticoagulation Hypothyroidism Hypertension Falls Left leg pain due to fall with hematoma from oral anticoagulation Orthostasis with near syncope on 11/11/22 Plan: PT and OT Supportive care Fall risk 11/10/2022: Continue aggressive therapy Fall risk 11/11/2022: Dr Green to manage meds due to orthostasis 11/12/2022: Monitor syncope 11/13/2022: Monitor for orthostasis 11/14/2022: Much improved 11/15/2022: Supportive care (1) Chronic heart failure with preserved ejection fraction (HFpEF) (2) Near syncope (3) Atrial fibrillation Status: Acute (4) Left foot pain Status: Acute (5) Mixed hyperlipidemia (6) Debility (7) Hypertension Status: Acute ELVA BEAUCHAMP DO Nov 15, 2022 06:19
[2022-11-15 06:28] LABS: HEMATOCRIT 34 % (35-52); HEMOGLOBIN 11.5 g/dL (11.5-16.0); MEAN CORPUSCULAR HEMOGLOBIN 32 pg (25-34); MEAN CORPUSCULAR HGB CONC 34 g/dL (32-36); MEAN CORPUSCULAR VOLUME 93 fL (80-99); MEAN PLATELET VOLUME 8.6 fL (9.0-12.2); PLATELET COUNT 303 10^3/uL (130-400); WHITE BLOOD COUNT 6.9 10^3/uL (4.3-11.0)
[2022-11-15 06:57] LABS: CALCIUM 8.7 MG/DL (8.5-10.1); CREATININE SERUM 0.71 MG/DL (0.60-1.30); MAGNESIUM 1.9 MG/DL (1.6-2.4); POTASSIUM 3.9 MMOL/L (3.6-5.0)
[2022-11-15 08:00] VITALS: BP 133/63
[2022-11-15] MEDS: DOCUSATE SODIUM 100 MG (COLACE) CAP PO SCH ×2 (08:16→21:55)
[2022-11-15] MEDS: CYANOCOBALAMIN 1,000 MCG (VITAMIN B-12) TABLET PO SCH (08:16)
[2022-11-15] MEDS: FLECAINIDE 100 MG (TAMBOCOR) TAB PO SCH ×2 (08:16→21:56)
[2022-11-15] MEDS: dilTIAZem120 MG (CARDIZEM CD) CAP PO SCH (08:16)
[2022-11-15] MEDS: LORATADINE (CLARITIN) 10 MG TAB PO SCH (08:16)
[2022-11-15] MEDS: SENNA W/DOCUSATE (SENOKOT S) TABLET PO SCH ×2 (08:16→21:55)
[2022-11-15] MEDS: VITAMIN D3 25 MCG (1,000 UNITS) TABLET PO SCH ×2 (08:17→17:35)
[2022-11-15] MEDS: ACETAMINOPHEN 325 MG TABLET PO PRN ×2 (08:17→22:00)
[2022-11-15] MEDS: polyethylene glycoL POWDER 17 GM (MIRALAX) PACK PO SCH ×2 (08:17→21:19)
--- NOTE | 2022-11-15 10:40 | Cardiology Progress Note ---
Subjective Date Seen by Provider: Nov 15, 2022 Time Seen by Provider: 10:39 Subjective/Events-last exam Patient is laying down in bed, complains of palpitation Became tachycardic last night. Objective-Cardiology Exam Last Set of Vital Signs Vital Signs 11/10/22 11/15/22 11/15/22 14:35 08:00 09:00 Temp 36.4 Pulse 107 Resp 18 B/P (MAP) 133/63 (86) Pulse Ox 97 O2 Delivery Room Air O2 Flow Rate 0.00 I&O Intake and Output 11/15/22 00:00 Intake Total 1050 ml Balance 1050 ml Intake Oral 1050 ml # Voids 6 # Bowel Movements 1 General: Alert, Oriented X3 HEENT: Atraumatic, PERRLA Lungs: Clear to Auscultation, Normal Air Movement Heart: Normal S1, Normal S2, Other Abdomen: Normal Bowel Sounds, Soft Skin: No Rashes Neuro: Normal Gait, Normal Speech Psych/Mental Status: Mental Status NL, Mood NL Results Lab Laboratory Tests 11/15/22 06:05 A/P-Cardiology Admission Diagnosis PAF HTN HLP Generalized debility/weakness Assessment/Plan Atypical chest pain, non-specific, bilateral shoulder discomfort MPI of 09-22-2022 showed no evidence of ischemia or infarction. No regional wall motion abnormality. MPI 56% Gen malaise, undetermined etiology Receiving physical therapy. Improving Orthostatic hypotension, improving. Better today. SSS and PAF: - S/P ILR implant 03-01-[address] Garnica - continuing intermittent PAF with RVR on ILR - OAC with Xarelto - this is being followed by Dr. Miller who has advised continued medical management, recommended starting Flecainide or Amiodarone per last note in Jul 2022. - ECG on 10-14-22: NSR with LBBB and PACs Patient was started on flecainide 50 mg twice daily. I will increase the dose to 100 mg twice daily, planning for electrical cardioversion in the morning. Hypothyroidism,treated with thyroid replacement therapy. Managed by PCP Hypertension, labile blood pressure Excepting higher blood pressure reading to avoid hypotensive episodes. Continue to monitor Carotid art disease, history of s/p R CEA by Dr Adams on 05/26/21 at [place], [place] Mild bilat dz per u/s of 09-10-2021 Mitral Regurg: Echocardiogram of 12-04-[address] Garnica showed LVEF 55-65%. LA mildly dilated. Mod to severe MR. PASP 40-45 mmHg Echocardiogram of 09-02-20 showed LVEF 55-60%. Grade 1 diastolic dysfunction. Mild MR. AoV sclerosis with mild regurg. PASP 40-45 mmHg COPD with nocturnal hypoxemia, managed by her PCP Extobaccoism, quit smoking when she was in her 40's Mild pulmonary hypertension, PASP 40-45 mmHg per echo of 09-02-[address] Brown on 02-14-21 did not indicate sleep apnea - a-fib seen during the test Chronic, bilateral leg swelling, likely related to venous insuff Chronic scoliosis and degenerative cervical spinal disease (chronically stiff neck and shoulders) managed by her pcp RITO EVANS MD Nov 15, 2022 10:40
[2022-11-15] MEDS ORDERED: dilTIAZem120 MG (CARDIZEM CD) CAP PO ONE (10:45)
[2022-11-15] MEDS: RIVAROXABAN 15 MG TABLET (XARELTO) PO SCH (17:35)
[2022-11-15 19:56] VITALS: BP 154/71
[2022-11-15] MEDS: ASPIRIN E.C. 81 MG (ECOTRIN) TAB PO SCH (21:56)
[2022-11-15] MEDS: SERTRALINE 50 MG (ZOLOFT) TABLET PO SCH (21:56)
[2022-11-15] MEDS: LACTOBACILLUS ACIDOPHILUS (PROBIOTIC) CAPSULE PO SCH (21:56)
[2022-11-16] VITALS (8 sets, daily range): BP systolic 131–171; BP diastolic 69–77
--- NOTE | 2022-11-16 05:57 | PM&R Progress Note ---
Subjective HPI/CC On Admission Date Seen by Provider: Nov 16, 2022 Time Seen by Provider: 10:00 Subjective/Events-last exam 11/16/2022: Doing well after successful cardioversion No pain reported Labs reviewed 11/15/2022: Patient doing a lot better No pain is reported Taking a nap currently RN has no concerns Bowels are moving 11/14/2022: Patient doing much better No more syncopal episodes Dr. Green appreciated 11/13/2022: Patient doing a lot better No more orthostasis today Working with therapy Monitor closely 11/12/2022: Patient doing a lot better Had another orthostatic syncopal episode and her blood pressure was back in the 60s No other concerns 11/11/2022: Doing a lot better No pain except left leg No falls Improved Orthostasis did occur with similar symptoms as she has had with syncopal episode s Dr Green will adjust meds 11/10/2022: Patient doing dramatically better No pain is reported except for left leg Able to ambulate a little bit Still very slow to recover Major fall risk Review of Systems General: Fatigue, Malaise Objective Exam Vital Signs Vital Signs Date Time Temp Pulse Resp B/P (MAP) Pulse Ox O2 Delivery O2 Flow Rate FiO2 11/16/22 10:55 71 18 161/74 (103) 94 Room Air 11/16/22 07:14 35.6 11/10/22 14:35 0.00 Capillary Refill : General Appearance: No Apparent Distress, WD/WN, Chronically ill, Thin HEENT: PERRL/EOMI, Normal ENT Inspection, Pharynx Normal Neck: Full Range of Motion, Normal Inspection, Non Tender, Supple, Carotid Bruit Respiratory: Chest Non Tender, Lungs Clear, Normal Breath Sounds, No Accessory Muscle Use, No Respiratory Distress Cardiovascular: Regular Rate, Rhythm, No Edema, No Gallop, No JVD, No Murmur, Normal Peripheral Pulses Gastrointestinal: Normal Bowel Sounds, No Organomegaly, No Pulsatile Mass, Non Tender, Soft Back: Normal Inspection, No CVA Tenderness, No Vertebral Tenderness, Decreased Range of Motion (left leg) Extremity: Normal Capillary Refill, Normal Inspection, Normal Range of Motion (Except left leg), Non Tender, No Calf Tenderness, No Pedal Edema Neurologic/Psychiatric: Alert, Oriented x3, No Motor/Sensory Deficits, Normal Mood/Affect, Abnormal Gait, Motor Weakness (Left leg) Skin: Normal Color, Warm/Dry, Ecchymosis (left leg) Lymphatic: No Adenopathy Results/Procedures Lab Laboratory Tests 11/16/22 06:13 Patient resulted labs reviewed. FIM Transfers Therapy Code Descriptions/Definitions Functional [place] Measure: 0=Not Assessed/NA 4=Minimal Assistance 1=Total Assistance 5=Supervision or Setup 2=Maximal Assistance 6=Modified [place] 3=Moderate Assistance 7=Complete IndependenceSCALE: Activities may be completed with or without assistive devices. 4-Qddtwhsnrv-jbhflns completes the activity by him/herself with no assistance from a helper. 5-Set-up or Clean-up Assistance-helper sets up or cleans up; patient completes activity. [place] assists only prior to or following the activity. 4-Supervision or Touching Assistance-helper provides verbal cues and/or touching/steadying and/or contact guard assistance as patient completes activity. Assistance may be provided throughout the activity or intermittently. 3-Partial/Moderate Assistance-helper does LESS THAN HALF the effort. [place] lifts, holds or supports trunk or limbs, but provides less than half the effort. 2-Substantial/Maximal Assistance-helper does MORE THAN HALF the effort. [place] lifts or holds trunk or limbs and provides more than half the effort. 9-Dtzljyfvi-mjjgfi does ALL the effort. Patient does none of the effort to complete the activity. Or, the assistance of 2 or more helpers is required for the patient to complete the activity. If activity was not attempted, code reason: 7-Patient Refused. 9-Not Applicable-not attempted and the patient did not perform the activity before the current illness, exacerbation or injury. 10-Not Attempted due to Environmental Limitations-(lack of equipment, weather restraints, etc.). 88-Not Attempted due to Medical Conditions or Safety Concerns. Roll Left to Right (QC): 4 Sit to Lying (QC): 4 Sit to Stand (QC): 5 Chair/Ckg-es-Etwdv Xfer(QC): 5 Car Transfer (QC): 4 (CGA) Gait Training Does the Patient Walk?: Yes Walk 10 feet (QC): 4 Walk 50 ft with 2 Turns(QC): 4 Walk 150 ft (QC): 4 Walking 10ft/uneven surface-QC: 4 (CGA) Gait Persons Needed: 1 Gait Assistive Device: FWW Wheelchair Training Does the Pt Use a Wheelchair?: No Wheel 50 ft with 2 turns (QC): 9 Wheel 150 ft (QC): 9 Type of Wheelchair: N/A Stair Training #of Steps: 12 1 Step (curb) (QC): 4 (CGA) 4 Steps (QC): 4 (CGA) 12 Steps (QC): 4 (CGA) Balance Picking up an Object (QC): 4 (CGA) ADL-Treatment Eating (QC): 6 Oral Hygiene (QC): 6 Shower/Bathe Self (QC): 6 Upper Body Dressing (QC): 6 Lower Body Dressing (QC): 6 On/Off Footwear (QC): 6 Toileting Hygiene (QC): 6 Toilet Transfer (QC): 4 Assessment/Plan Assessment and Plan Assess & Plan/Chief Complaint Assessment: 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 Possible pacemaker required Atrial fibrillation s/p cardioversion 11/16/22 Oral anticoagulation Hypothyroidism Hypertension Falls Left leg pain due to fall with hematoma from oral anticoagulation Orthostasis with near syncope on 11/11/22 Plan: PT and OT Supportive care Fall risk 11/10/2022: Continue aggressive therapy Fall risk 11/11/2022: Dr Green to manage meds due to orthostasis 11/12/2022: Monitor syncope 11/13/2022: Monitor for orthostasis 11/14/2022: Much improved 11/15/2022: Supportive care 11/16/2022: Cardioversion (1) Chronic heart failure with preserved ejection fraction (HFpEF) (2) Near syncope (3) Atrial fibrillation Status: Acute (4) Left foot pain Status: Acute (5) Mixed hyperlipidemia (6) Debility (7) Hypertension Status: Acute ELVA BEAUCHAMP DO Nov 16, 2022 05:57
[2022-11-16] MEDS: LEVOTHYROXINE 75 MCG (LEVOTHROID) TABLET PO SCH (06:01)
[2022-11-16 06:23] LABS: BASOPHILS # (AUTO) 0.1 10^3/uL (0.0-0.1); BASOPHILS % (AUTO) 2 % (0-10); EOSINOPHILS # (AUTO) 0.3 10^3/uL (0.0-0.3); EOSINOPHILS % (AUTO) 5 % (0-10); HEMATOCRIT 33 % (35-52); HEMOGLOBIN 11.1 g/dL (11.5-16.0); LYMPHOCYTES # (AUTO) 1.5 10^3/uL (1.0-4.0); LYMPHOCYTES % (AUTO) 20 % (12-44); MEAN CORPUSCULAR HEMOGLOBIN 31 pg (25-34); MEAN CORPUSCULAR HGB CONC 33 g/dL (32-36); MEAN CORPUSCULAR VOLUME 93 fL (80-99); MEAN PLATELET VOLUME 8.3 fL (9.0-12.2); MONOCYTES # (AUTO) 0.5 10^3/uL (0.0-1.0); MONOCYTES % (AUTO) 7 % (0-12); NEUTROPHILS # (AUTO) 4.8 10^3/uL (1.8-7.8); NEUTROPHILS % (AUTO) 67 % (42-75); PLATELET COUNT 305 10^3/uL (130-400); WHITE BLOOD COUNT 7.2 10^3/uL (4.3-11.0)
[2022-11-16 06:47] LABS: ALBUMIN 3.4 GM/DL (3.2-4.5); BILIRUBIN,TOTAL 0.5 MG/DL (0.1-1.0); CALCIUM 8.7 MG/DL (8.5-10.1); CREATININE SERUM 0.75 MG/DL (0.60-1.30); POTASSIUM 3.8 MMOL/L (3.6-5.0); TOTAL PROTEIN 5.9 GM/DL (6.4-8.2)
[2022-11-16] MEDS: VITAMIN D3 25 MCG (1,000 UNITS) TABLET PO SCH ×2 (08:10→17:11)
[2022-11-16] MEDS: DOCUSATE SODIUM 100 MG (COLACE) CAP PO SCH ×2 (08:10→21:52)
[2022-11-16] MEDS: SENNA W/DOCUSATE (SENOKOT S) TABLET PO SCH ×2 (08:10→21:52)
[2022-11-16] MEDS: CYANOCOBALAMIN 1,000 MCG (VITAMIN B-12) TABLET PO SCH (08:10)
[2022-11-16] MEDS: FLECAINIDE 100 MG (TAMBOCOR) TAB PO SCH ×2 (08:10→21:53)
[2022-11-16] MEDS: LORATADINE (CLARITIN) 10 MG TAB PO SCH (08:11)
--- NOTE | 2022-11-16 08:52 | Cardiology Progress Note ---
Subjective Date Seen by Provider: Nov 16, 2022 Time Seen by Provider: 08:05 Subjective/Events-last exam Patient in bathroom doing ADLs, denies any chest pain Objective-Cardiology Exam Last Set of Vital Signs Vital Signs 11/10/22 11/16/22 14:35 07:14 Temp 35.6 Pulse 96 Resp 16 B/P (MAP) 131/76 (94) Pulse Ox 98 O2 Delivery Room Air O2 Flow Rate 0.00 I&O Intake and Output 11/16/22 00:00 Intake Total 1150 ml Balance 1150 ml Intake Oral 1150 ml # Voids 7 # Bowel Movements 1 General: Alert, Oriented X3 HEENT: Atraumatic, PERRLA Lungs: Clear to Auscultation, Normal Air Movement Heart: Normal S1, Normal S2, Other Abdomen: Normal Bowel Sounds, Soft Skin: No Rashes Neuro: Normal Gait, Normal Speech Psych/Mental Status: Mental Status NL, Mood NL Results Lab Laboratory Tests 11/16/22 06:13 A/P-Cardiology Admission Diagnosis PAF HTN HLP Generalized debility/weakness Assessment/Plan Atypical chest pain, non-specific, bilateral shoulder discomfort MPI of 09-22-2022 showed no evidence of ischemia or infarction. No regional wall motion abnormality. MPI 56% Gen malaise, undetermined etiology Receiving physical therapy. Improving Orthostatic hypotension, improving. Better today. SSS and PAF: - S/P ILR implant 03-01-[address] Garnica - continuing intermittent PAF with RVR on ILR - OAC with Xarelto - this is being followed by Dr. Miller who has advised continued medical management, recommended starting Flecainide or Amiodarone per last note in Jul 2022. - ECG on 10-14-22: NSR with LBBB and PACs Patient is back in atrial fibrillation Patient was started on flecainide 50 mg twice daily, dose increased to 100 mg twice daily, planning for electrical cardioversion later this morning. Hypothyroidism,treated with thyroid replacement therapy. Managed by PCP Hypertension, labile blood pressure Excepting higher blood pressure reading to avoid hypotensive episodes. Continue to monitor Carotid art disease, history of s/p R CEA by Dr Adams on 05/26/21 at [facility], [place] Mild bilat dz per u/s of 09-10-2021 Mitral Regurg: Echocardiogram of 12-04-[address] Garnica showed LVEF 55-65%. LA mildly dilated. Mod to severe MR. PASP 40-45 mmHg Echocardiogram of 09-02-20 showed LVEF 55-60%. Grade 1 diastolic dysfunction. Mild MR. AoV sclerosis with mild regurg. PASP 40-45 mmHg COPD with nocturnal hypoxemia, managed by her PCP Extobaccoism, quit smoking when she was in her 40's Mild pulmonary hypertension, PASP 40-45 mmHg per echo of 09-02-[address] Brown on 02-14-21 did not indicate sleep apnea - a-fib seen during the test Chronic, bilateral leg swelling, likely related to venous insuff Chronic scoliosis and degenerative cervical spinal disease (chronically stiff neck and shoulders) managed by her pcp Supervisory-Addendum Brief Supervisory Addendum Participated in pt care: history, MDM, physical Personally performed: exam, history, MDM Care discussed with: THEO Results interpretation: Verified all documentation Notes: Patient was seen and evaluated with Luis, examination performed, management plan was discussed, agree with the current scribed note, I made few changes to the note using Italic font Patient was seen at bedside, laying down comfortably, feeling well, still having episodes of tachycardia She will be unable to tolerate higher dose of calcium channel blockers I am planning to proceed with cardioversion and maintain her on flecainide. LUIS MONTENEGRO Nov 16, 2022 08:52 RITO EVANS MD Nov 16, 2022 09:34
[2022-11-16] MEDS: polyethylene glycoL POWDER 17 GM (MIRALAX) PACK PO SCH ×2 (09:07→21:36)
--- NOTE | 2022-11-16 09:14 | Occupational Ther Daily Note ---
OT Current Status-Daily Note Subjective Pt up EOB, agreeable to OT tx. Pt states she believes she is having a cardioversion sometime today. Mental Status/Objective Patient Orientation: Normal For Age ADL-Treatment Therapy Code Descriptions/Definitions Functional [place] Measure: 0=Not Assessed/NA 4=Minimal Assistance 1=Total Assistance 5=Supervision or Setup 2=Maximal Assistance 6=Modified [place] 3=Moderate Assistance 7=Complete IndependenceSCALE: Activities may be completed with or without assistive devices. 0-Mpyyoioztm-gpllycd completes the activity by him/herself with no assistance from a helper. 5-Set-up or Clean-up Assistance-helper sets up or cleans up; patient completes activity. [place] assists only prior to or following the activity. 4-Supervision or Touching Assistance-helper provides verbal cues and/or hallie jay/steadying and/or contact guard assistance as patient completes activity. Assistance may be provided throughout the activity or intermittently. 3-Partial/Moderate Assistance-helper does LESS THAN HALF the effort. [place] lifts, holds or supports trunk or limbs, but provides less than half the effort. 2-Substantial/Maximal Assistance-helper does MORE THAN HALF the effort. [place] lifts or holds trunk or limbs and provides more than half the effort. 9-Mykjvahek-tetwym does ALL the effort. Patient does none of the effort to complete the activity. Or, the assistance of 2 or more helpers is required for the patient to complete the activity. If activity was not attempted, code reason: 7-Patient Refused. 9-Not Applicable-not attempted and the patient did not perform the activity before the current illness, exacerbation or injury. 10-Not Attempted due to Environmental Limitations-(lack of equipment, weather restraints, etc.). 88-Not Attempted due to Medical Conditions or Safety Concerns. Eating (QC): 6 Oral Hygiene (QC): 6 Shower/Bathe Self (QC): 6 Upper Body Dressing (QC): 6 Lower Body Dressing (QC): 6 On/Off Footwear: 6 Toileting Hygiene (QC): 6 Toilet Transfer (QC): 6 Other Treatment Pt EOB, used FWW to gather clothes from closet and transfer into bathroom. Pt declined full shower at this time, as she didn't want to get in the middle of a shower without knowing what time the cardioversion is scheduled. Pt agreeable to sponge bath. Pt sat at sink, completing sponge bath, dressing, toileting and grooming tasks independently. Pt then used FWW to transfer to table in ARU common area. In order to increase activity tolerance and complete UE reaching task, pt began fine motor task of placing 100 piece puzzle together. Pt completed task x25 mins total, no rest breaks. Staff present to take pt for cardioversion, pt used FWW to return to her room, transfer to EOB and supine, IND. Post tx, pt in bed, staff present to take her for procedure, all needs met. Education OT Patient Education: Correct positioning, Energy conservation, Modified ADL techniques, Progress toward Goal/Update tx plan, Purpose of tx/functional activities, Rehab process Teaching Recipient: Patient Teaching Methods: Discussion Response to Teaching: Verbalize Understanding BIMS CAM BIMS Expression of Ideas and Wants: Without Difficulty Understanding Verbal Content: Understands Brief Interview/Mental Status: Yes IRF DEMETRIS BIMS: IRF DEMETRIS BIMS Response (Comments) Value Repitition of Three Words Three 3 Recalls Socks Yes, No Cue Required 2 Recalls Blue Yes, No Cue Required 2 Recalls Bed Yes, No Cue Required 2 Year Correct 3 Month Accurate Within 5 Days 2 Day Correct 1 Total 15 Should Staff Asses. Mental St.: No CAM Mental Status Change/Baseline: 0 Inattention: 0 Disorganized thinkin Altered level of consciousness: 0 OT Short Term Goals Short Term Goals Time Frame: Nov 18, 2022 Shower/bathe self: 5 Upper body dressin Lower body dressin Putting on/taking off footwear: 5 OT Penitentiary Goals Emergency Medical Service Manager Goals Time Frame: Nov 27, 2022 Acute change in mental status: 0 Inattention: 0 Disorganized thinkin Altered level of consciousness: 0 Eating (QC): 6 (met) Oral Hygiene (QC): 6 (met) Toileting Hygiene (QC): 6 (met) Shower/Bathe Self (QC): 6 (met) Upper Body Dressing (QC): 6 (met) Lower Body Dressing (QC): 6 (met) On/Off Footwear (QC): 6 (met) Additional Goals: 1-Demonstrate ADL Tasks, 2-Verbalize Understanding, 3-ImproveStrength/Samy 1=Demonstrate adherence to instructed precautions during ADL tasks. 2=Patient will verbalize/demonstrate understanding of assistive devices/modifications for ADL. 3=Patient will improve strength/tolerance for activity to enable patient to perform ADL's. OT Education/Plan Problem List/Assessment Assessment: Decreased Activ Tolerance, Decreased UE Strength, Impaired I ADL's Discharge Recommendations Plan/Recommendations: Continue POC Treatment Plan/Plan of Care Patient would benefit from OT for education, treatment and training to promote independence in ADL's, mobility, safety and/or upper extremity function for ADL's. Plan of Care: ADL Retraining, Functional Mobility, Group Exercise/Act as Ind, UE Funct Exercise/Act Treatment Duration: Nov 27, 2022 Frequency: At least 5 of 7 days/Wk (IRF) Estimated Hrs Per Day: 1.5 hours per day Agreement: Yes Rehab Potential: Good Time Start Time: 07:25 Stop Time: 09:05 DATE: Nov 16, 2022 Total Time Billed (hr/min): 100 Billed Treatment Time 1, ADL 5 (75'), FA 2 (25') BERTRAM SCHULTZ OT Nov 16, 2022 09:14
--- NOTE | 2022-11-16 09:31 | Cardiac Procedure Note-CS/ASA ---
Pre-Procedure Note Pre-Op Procedure Note Date of Available H&P: Nov 16, 2022 Date H&P Reviewed: Nov 16, 2022 Time H&P Reviewed: 09:30 History & Physical: H&P Reviewed, Patient Examed, No changes noted Pre-Operative Diagnosis: Atrial fibrillation Moderate Sedation PreProcedure Time 09:30 ASA Score 3 Airway Lungs Heart ASA score ASA 1: a normal healthy patient ASA 2: a patient with a mild systemic disease (mid diabetes, controlled hypertension, obesity ASA 3: a patient with a severe systemic disease that limits activity (angina, COPD, prior Myocardial infarction) ASA 4: a patient with an incapacitating disease that is a constant threat to life (CHF, renal failure) ASA 5: a moribund patient not expected to survive 24 hrs. (ruptured aneurysm) ASA 6: a declared brain- patient whose organs are being harvested. For emergent operations, add the letter E after the classification Mallampati Classification Grade 3 Sedation Plan Analgesia, Amnesia, Plan communicated to team members, Discussed options with patient/fam, Discussed risks with patient/fam The patient is an appropriate candidate to undergo the planned procedure, sedation, and anesthesia. The patient immediately re-assessed prior to indication. RITO EVANS MD Nov 16, 2022 09:31
--- NOTE | 2022-11-16 09:35 | Cardioversion ---
Cardioversion PROCEDURE PHYSICIAN: Rito Green DATE OF PROCEDURE: 11/16/22 DIRECT EXTERNAL ELECTRICAL CARDIOVERSION: Indications: Atrial Fibrillation with rapid ventricular rate Preoperative diagnoses: Atrial Fibrillation with rapid ventricular rate Postoperative diagnosis: Sinus rhythm, Successful Electrical Cardioversion Anesthesia: By Anesthesia services Complications: None Specimen: None Contrast: 0 Flouroscopy: none Procedure Details: The patient was brought the dock or pier laborer after informed consent was taken, all the risks and complications were explained including the risk of stroke. Electrical cardioversion was carried out with anesthesia support with propofol. 120 joules of synchronized shock was delivered through external patches which promptly restored sinus rhythm. The patient tolerated the procedure well. Conclusions: Successful cardioversion and terminating atrial fibrillation RITO GREEN MD Nov 16, 2022 09:35
--- NOTE | 2022-11-16 12:54 | Physical Therapy Daily Note ---
PT Daily Note-Current Subjective Pt just returned from cardiac procedure & per Nurse, okay to proceed w/tx. Pt reports "a little tired this morning". Pt agrees to PT for QC scoring for anticipated d/c date. Pain Numeric Pain Scale: 0-No Pain Section J - Health Conditions 1. Rarely or not at all 2. Occasionally 3. Frequently 4. Almost constantly 8. Unable to answer Pain Effect on Sleep: 1 Pain Interference with Therapy: 1 Pain Interference w/Day-to-Day: 1 Mental Status Patient Orientation: Person, Place, Time, Situation Attachments: Other-See Comments (Telemetry) Transfers SCALE: Activities may be completed with or without assistive devices. 0-Wlkhdlvzpy-irjhtqz completes the activity by him/herself with no assistance from a helper. 5-Set-up or Clean-up Assistance-helper sets up or cleans up; patient completes activity. [place] assists only prior to or following the activity. 4-Supervision or Touching Assistance-helper provides verbal cues and/or touching/steadying and/or contact guard assistance as patient completes acti vity. Assistance may be provided throughout the activity or intermittently. 3-Partial/Moderate Assistance-helper does LESS THAN HALF the effort. [place] lifts, holds or supports trunk or limbs, but provides less than half the effort. 2-Substantial/Maximal Assistance-helper does MORE THAN HALF the effort. [place] lifts or holds trunk or limbs and provides more than half the effort. 9-Sheytslsc-rhvasd does ALL the effort. Patient does none of the effort to complete the activity. Or, the assistance of 2 or more helpers is required for the patient to complete the activity. If activity was not attempted, code reason: 7-Patient Refused. 9-Not Applicable-not attempted and the patient did not perform the activity before the current illness, exacerbation or injury. 10-Not Attempted due to Environmental Limitations-(lack of equipment, weather restraints, etc.). 88-Not Attempted due to Medical Conditions or Safety Concerns. Roll Left & Right (QC): 6 Sit to Lying (QC): 6 Lying to Sitting/Side of Bed(Q: 6 Sit to Stand (QC): 6 Chair/Wfe-ks-Rnuqs Xfer(QC): 6 Toilet Transfer (QC): 6 Car Transfer (QC): 6 Weight Bearing Right Lower Extremity: Right Full Weight Bearing Left Lower Extremity: Left Full Weight Bearing Gait Training Does the Patient Walk?: Yes Distance: 156' Walk 10 feet (QC): 6 Walk 50 ft with 2 Turns(QC): 6 Walk 150 ft (QC): 6 Walking 10ft/uneven surface-QC: 6 Gait Persons Needed: 0 Gait Assistive Device: FWW Wheelchair Training Does the Pt Use a Wheelchair?: No Stair Training Stair Training: Handrails/: 2 handrails #of Steps: 4 1 Step (curb) (QC): 6 4 Steps (QC): 6 12 Steps (QC): 5 Stairs: Pattern: Step to Balance Picking up an Object (QC): 6 Exercises Seated Therapy Exercises: Sit to stand Treatments Pt completes QC scoring items listed above and reviews HEP for upcoming d/c. Pt uses BR before returning to recliner at end of tx for lunch. Pt has all needs met, call light in hand. Assessment Current Status: Good Progress Pt [place]. tx well despite tiredness this morning. PT Ash Kier Boiler Goals Care Home Goals PT Ash Kier Boiler Goals Time Frame: Nov 19, 2022 Roll Left & Right (QC): 6 (Pt will be Mod I with functional mobility, with least restrictive AD, in order to be at PLOF. ) Sit to Lying (QC): 6 (Pt will be Mod I with functional mobility, with least restrictive AD, in order to be at PLOF. ) Lying-Sitting on Side/Bed(QC): 6 (Pt will be Mod I with functional mobility, with least restrictive AD, in order to be at PLOF. ) Sit to Stand (QC): 6 (Pt will be Mod I with functional mobility, with least restrictive AD, in order to be at PLOF. ) Chair/Uhu-ne-Ufowd Xfer(QC): 6 (Pt will be Mod I with functional mobility, with least restrictive AD, in order to be at PLOF. ) Toilet Transfer (QC): 6 (Pt will be Mod I with functional mobility, with least restrictive AD, in order to be at PLOF. ) Car Transfer (QC): 6 (Pt will be Mod I with functional mobility, with least restrictive AD, in order to be at PLOF. ) Does the Patient Walk: Yes Walk 10 feet (QC): 6 (Pt will be Mod I with functional mobility, with least restrictive AD, in order to be at PLOF. ) Walk 50ft with 2 Turns (QC): 6 (Pt will be Mod I with functional mobility, with least restrictive AD, in order to be at PLOF. ) Walk 150 ft (QC): 6 (Pt will be Mod I with functional mobility, with least restrictive AD, in order to be at PLOF. ) Walking 10ft on Uneven Surface: 6 (Pt will be Mod I with functional mobility, with least restrictive AD, in order to be at PLOF. ) 1 Step (curb) (QC): 6 (Pt will be Mod I with functional mobility, with least restrictive AD, in order to be at PLOF. ) 4 Steps (QC): 6 (Pt will be Mod I with functional mobility, with least restrictive AD, in order to be at PLOF. ) 12 Steps (QC): 6 (Pt will be Mod I with functional mobility, with least restrictive AD, in order to be at PLOF. ) Picking up an Object (QC): 6 (Pt will be Mod I with functional mobility, with least restrictive AD, in order to be at PLOF. ) Does the Pt use WC or Scooter?: No Wheel 50 feet with 2 turns (QC: 9 Type: N/A Wheel 150 feet: 9 Type: N/A PT Plan Treatment/Plan Treatment Plan: Continue Plan of Care Treatment Plan: Bed Mobility, Concurrent Therapy, Education, Functional Activity Samy, Functional Strength, Group Therapy, Gait, Safety, Therapeutic Exercise, Transfers Treatment Duration: Nov 19, 2022 Frequency: At least 5 of 7 days/Wk (IRF) Estimated Hrs Per Day: 1.5 hours per day Patient and/or Family Agrees t: Yes Time Time In: 1040 Time Out: 1210 DATE: Nov 16, 2022 Total Billed Treatment Time: 90 Total Billed Treatment 1, FA x3 (45m), GT x2 (30m) & EX (15m) GET GAN SENIOR CLINICAL STUDY MANAGER Nov 16, 2022 12:54
--- NOTE | 2022-11-16 13:33 | Anesthesia-General Post-Op ---
MAC Patient Condition Mental Status/LOC: Same as Preop Cardiovascular: Satisfactory Nausea/Vomiting: Absent Respiratory: Satisfactory Pain: Controlled Complications: Absent Post Op Complications Complications None Follow Up Care/Instructions Patient Instructions None needed. Anesthesiology Discharge Order Discharge Order Patient is doing well, no complaints, stable vital signs, no apparent adverse anesthesia problems. No complications reported per nursing. ANGÉLICA CAREY BEAMING INSPECTOR Nov 16, 2022 13:33
[2022-11-16] MEDS: RIVAROXABAN 15 MG TABLET (XARELTO) PO SCH (17:11)
[2022-11-16] MEDS: ACETAMINOPHEN 325 MG TABLET PO PRN (19:16)
[2022-11-16] MEDS: LACTOBACILLUS ACIDOPHILUS (PROBIOTIC) CAPSULE PO SCH (21:51)
[2022-11-16] MEDS: ASPIRIN E.C. 81 MG (ECOTRIN) TAB PO SCH (21:53)
[2022-11-16] MEDS: SERTRALINE 50 MG (ZOLOFT) TABLET PO SCH (21:54)
[2022-11-17] MEDS: LEVOTHYROXINE 88 MCG (LEVOTHORID) TAB PO SCH (02:09)
[2022-11-17] MEDS ORDERED: FLEC100T PO (05:54)
[2022-11-17] MEDS ORDERED: DILT180C85 PO (05:54)
--- NOTE | 2022-11-17 05:57 | D/C HH Face to Face Order ---
D/C Face to Face Orders Reconcile Patient Problems Problems Reviewed?: Yes Instructions for Patient Via [facility], Patient Instructions/FollowUp: PCP as scheduled Physician to follow Patient: Virgilio Discharge Diet for Home: No Restrictions Patient Problems: AF Syncope Orthostasis Patient Data-Allergies,Ht & Wt Patient Allergies: Coded Allergies: codeine (Unverified Allergy, Mild, Vomiting, 02/18/22) adhesive tape (Unverified Allergy, Unknown, 02/18/22) amoxicillin (Unverified Allergy, Unknown, 02/18/22) Height (Feet): 5 Height (Inches): 3.50 Weight (Pounds): 157 Weight (Ounces): 0.9 Home Health Need/Face to Face Date of Face to Face: Nov 17, 2022 Clinical Findings: Generalized weakness and fatigue, Muscle weakness I have seen Pt lmcu-tp-myfn: Yes Discharged To: Home Diagnosis/Conditions: Debility Patient is Homebound due to: Fred fall risk due to instabilty, Muscle weakness Homebound Status Due to the above stated illness, injury or surgical procedure (medical condition or diagnosis) and associated clinical findings, the patient is homebound because of his/her inability to leave home except with aid of a supportive device and/or person AND leaving the home requires a considerable and taxing effort or is medically contraindicated. Pt req the following assistanc: Walker Home Health Nursing Orders Home Health Services Order: Nursing Services, Manager Domestic-Evaluate & Treat, Physical Therapy-Evaluate & Treat Certify Stmt I certify that this patient is under my care and that I, a nurse practitioner or a physician; a workforce development assistant working with me, had a face to face encounter that - meets the physician face to face encounter requirements with this patient as dated. ELVA BEAUCHAMP DO Nov 17, 2022 05:57
--- NOTE | 2022-11-17 05:58 | Discharge Summary ---
Diagnosis/Chief Complaint Date of Admission Nov 09, 2022 at 14:51 Date of Discharge Discharge Date: Nov 17, 2022 Discharge Summary Discharge Physical Examination Allergies: Coded Allergies: codeine (Unverified Allergy, Mild, Vomiting, 02/18/22) adhesive tape (Unverified Allergy, Unknown, 02/18/22) amoxicillin (Unverified Allergy, Unknown, 02/18/22) Vitals & I&Os Vital Signs Date Time Temp Pulse Resp B/P (MAP) Pulse Ox O2 Delivery O2 Flow Rate FiO2 11/17/22 20:15 36.7 82 18 181/81 (114) 95 Room Air Hospital Course Labs (last 24 hrs) Laboratory Tests 11/10/22 05:20: White Blood Count 8.3, Red Blood Count 3.75L, Hemoglobin 11.7, Hematocrit 35, Mean Corpuscular Volume 93, Mean Corpuscular Hemoglobin 31, Mean Corpuscular Hemoglobin Concent 34, Red Cell Distribution Width 12.1, Platelet Count 318, Mean Platelet Volume 8.5L, Immature Granulocyte % (Auto) 0, Neutrophils (%) (Auto) 64, Lymphocytes (%) (Auto) 22, Monocytes (%) (Auto) 9, Eosinophils (%) (Auto) 4, Basophils (%) (Auto) 1, Neutrophils # (Auto) 5.3, Lymphocytes # (Auto) 1.8, Monocytes # (Auto) 0.7, Eosinophils # (Auto) 0.3, Basophils # (Auto) 0.1, Immature Granulocyte # (Auto) 0.0, Sodium Level 134L, Potassium Level 3.9, Chloride Level 102, Carbon Dioxide Level 24, Anion Gap 8, Blood Urea Nitrogen 11, Creatinine 0.74, Estimat Glomerular Filtration Rate 81, BUN/Creatinine Ratio 15, Glucose Level 94, Calcium Level 8.7, Corrected Calcium 9.2, Total Bilirubin 0.8, Aspartate Amino Transf (AST/SGOT) 18, Alanine Aminotransferase (ALT/SGPT) 12, Alkaline Phosphatase 68, Total Protein 5.9L, Albumin 3.4 11/15/22 06:05: White Blood Count 6.9, Red Blood Count 3.64L, Hemoglobin 11.5, Hematocrit 34L, Mean Corpuscular Volume 93, Mean Corpuscular Hemoglobin 32, Mean Corpuscular Hemoglobin Concent 34, Red Cell Distribution Width 12.4, Platelet Count 303, Mean Platelet Volume 8.6L, Sodium Level 134L, Potassium Level 3.9, Chloride Level 101, Carbon Dioxide Level 25, Anion Gap 8, Blood Urea Nitrogen 12, Creatinine 0.71, Estimat Glomerular Filtration Rate 85, BUN/Creatinine Ratio 17, Glucose Level 92, Calcium Level 8.7, Magnesium Level 1.9 11/16/22 06:13: White Blood Count 7.2, Red Blood Count 3.57L, Hemoglobin 11.1L, Hematocrit 33L, Mean Corpuscular Volume 93, Mean Corpuscular Hemoglobin 31, Mean Corpuscular Hemoglobin Concent 33, Red Cell Distribution Width 12.5, Platelet Count 305, Mean Platelet Volume 8.3L, Immature Granulocyte % (Auto) 0, Neutrophils (%) (Auto) 67, Lymphocytes (%) (Auto) 20, Monocytes (%) (Auto) 7, Eosinophils (%) (Auto) 5, Basophils (%) (Auto) 2, Neutrophils # (Auto) 4.8, Lymphocytes # (Auto) 1.5, Monocytes # (Auto) 0.5, Eosinophils # (Auto) 0.3, Basophils # (Auto) 0.1, Immature Granulocyte # (Auto) 0.0, Sodium Level 134L, Potassium Level 3.8, Chloride Level 100, Carbon Dioxide Level 26, Anion Gap 8, Blood Urea Nitrogen 10, Creatinine 0.75, Estimat Glomerular Filtration Rate 79, BUN/Creatinine Ratio 13, Glucose Level 91, Calcium Level 8.7, Corrected Calcium 9.2, Total Bilirubin 0.5, Aspartate Amino Transf (AST/SGOT) 18, Alanine Aminotransferase (ALT/SGPT) 1 1, Alkaline Phosphatase 71, Total Protein 5.9L, Albumin 3.4 Pending Labs Laboratory Tests 11/10/22 05:20: White Blood Count 8.3, Red Blood Count 3.75, Hemoglobin 11.7, Hematocrit 35, Mean Corpuscular Volume 93, Mean Corpuscular Hemoglobin 31, Mean Corpuscular Hemoglobin Concent 34, Red Cell Distribution Width 12.1, Platelet Count 318, Mean Platelet Volume 8.5, Immature Granulocyte % (Auto) 0, Neutrophils (%) (Auto) 64, Lymphocytes (%) (Auto) 22, Monocytes (%) (Auto) 9, Eosinophils (%) (Auto) 4, Basophils (%) (Auto) 1, Neutrophils # (Auto) 5.3, Lymphocytes # (Auto) 1.8, Monocytes # (Auto) 0.7, Eosinophils # (Auto) 0.3, Basophils # (Auto) 0.1, Immature Granulocyte # (Auto) 0.0, Sodium Level 134, Potassium Level 3.9, Chloride Level 102, Carbon Dioxide Level 24, Anion Gap 8, Blood Urea Nitrogen 11, Creatinine 0.74, Estimat Glomerular Filtration Rate 81, BUN/Creatinine Ratio 15, Glucose Level 94, Calcium Level 8.7, Corrected Calcium 9.2, Total Bilirubin 0.8, Aspartate Amino Transf (AST/SGOT) 18, Alanine Aminotransferase (ALT/SGPT) 12, Alkaline Phosphatase 68, Total Protein 5.9, Albumin 3.4 11/15/22 06:05: White Blood Count 6.9, Red Blood Count 3.64, Hemoglobin 11.5, Hematocrit 34, M valdemar Corpuscular Volume 93, Mean Corpuscular Hemoglobin 32, Mean Corpuscular Hemoglobin Concent 34, Red Cell Distribution Width 12.4, Platelet Count 303, Mean Platelet Volume 8.6, Sodium Level 134, Potassium Level 3.9, Chloride Level 101, Carbon Dioxide Level 25, Anion Gap 8, Blood Urea Nitrogen 12, Creatinine 0.71, Estimat Glomerular Filtration Rate 85, BUN/Creatinine Ratio 17, Glucose Level 92, Calcium Level 8.7, Magnesium Level 1.9 11/16/22 06:13: White Blood Count 7.2, Red Blood Count 3.57, Hemoglobin 11.1, Hematocrit 33, Mean Corpuscular Volume 93, Mean Corpuscular Hemoglobin 31, Mean Corpuscular Hemoglobin Concent 33, Red Cell Distribution Width 12.5, Platelet Count 305, Mean Platelet Volume 8.3, Immature Granulocyte % (Auto) 0, Neutrophils (%) (Auto) 67, Lymphocytes (%) (Auto) 20, Monocytes (%) (Auto) 7, Eosinophils (%) (Auto) 5, Basophils (%) (Auto) 2, Neutrophils # (Auto) 4.8, Lymphocytes # (Auto) 1.5, Monocytes # (Auto) 0.5, Eosinophils # (Auto) 0.3, Basophils # (Auto) 0.1, Immature Granulocyte # (Auto) 0.0, Sodium Level 134, Potassium Level 3.8, Chloride Level 100, Carbon Dioxide Level 26, Anion Gap 8, Blood Urea Nitrogen 10, Creatinine 0.75, Estimat Glomerular Filtration Rate 79, BUN/Creatinine Ratio 13, Glucose Level 91, Calcium Level 8.7, Corrected Calcium 9.2, Total Bilirubin 0.5, Aspartate Amino Transf (AST/SGOT) 18, Alanine Aminotransferase (ALT/SGPT) 11, Alkaline Phosphatase 71, Total Protein 5.9, Albumin 3.4 Discharge Home Medications: Active Scripts Active Diltiazem 24Hr ER (Diltiazem HCl) 180 Mg Cap.er.24h 180 Mg PO DAILY Flecainide Acetate 100 Mg Tablet 100 Mg PO BID Hydralazine HCl 10 Mg Tablet 10 Mg PO BID Only take twice a day for systolic blood pressure greater than 190 mmHg Reported Metoprolol Succinate 100 Mg Tab.er.24h 100 Mg PO HS Janette Allergy (Fexofenadine HCl) 180 Mg Tablet 180 Mg PO DAILY Align (Bifidobacterium Infantis) 10.5 Mg (10 Million Cell) Tab.chew 10.5 Mg PO HS Xarelto Tablet (Rivaroxaban) 15 Mg Tablet 15 Mg PO 1800 W/MEAL Synthroid (Levothyroxine Sodium) 88 Mcg Tablet 88 Mcg PO CHAVEZ,,,SA Losartan Potassium 50 Mg Tablet 50 Mg PO BID Sertraline HCl 25 Mg Tablet 12.5 Mg PO HS TAKES OF A 25MG TAB Synthroid (Levothyroxine Sodium) 75 Mcg Tablet 75 Mcg PO ,, Atorvastatin Calcium 20 Mg Tablet 20 Mg PO HS Vitamin D3 (Cholecalciferol (Vitamin D3)) 50 Mcg (2000 Unit) Capsule 50 Mcg PO DAILY Aspirin EC (Aspirin) 81 Mg Tablet.dr 81 Mg PO HS Vitamin B-12 (Cyanocobalamin (Vitamin B-12)) 500 Mcg Tablet 500 Mcg PO DAILY Tylenol (Acetaminophen) 325 Mg Tablet 325 Mg PO Q6H PRN Vitamin D3 (Cholecalciferol (Vitamin D3)) 25 Mcg (1000 Unit) Capsule 25 Mcg PO 1800 Instructions to patient/family Please see electronic discharge instructions given to patient. Diagnosis/Problems Diagnosis/Problems (1) Chronic heart failure with preserved ejection fraction (HFpEF) (2) Near syncope (3) Atrial fibrillation Status: Acute (4) Left foot pain Status: Acute (5) Mixed hyperlipidemia (6) Debility (7) Hypertension Status: Acute ELVA BEAUCHAMP DO Nov 17, 2022 05:58
[2022-11-17 07:08] VITALS: BP 178/79
[2022-11-17] MEDS: CYANOCOBALAMIN 1,000 MCG (VITAMIN B-12) TABLET PO SCH (07:59)
[2022-11-17] MEDS: FLECAINIDE 100 MG (TAMBOCOR) TAB PO SCH ×2 (08:00→21:11)
[2022-11-17] MEDS: ACETAMINOPHEN 325 MG TABLET PO PRN ×2 (08:00→17:52)
[2022-11-17] MEDS: VITAMIN D3 25 MCG (1,000 UNITS) TABLET PO SCH ×2 (08:01→17:39)
[2022-11-17] MEDS: LORATADINE (CLARITIN) 10 MG TAB PO SCH (08:02)
[2022-11-17] MEDS ORDERED: FUROSEMIDE 40 MG/4 ML INJ (LASIX) IVP NR (09:00)
--- NOTE | 2022-11-17 09:05 | Cardiology Progress Note ---
Subjective Date Seen by Provider: Nov 17, 2022 Time Seen by Provider: 08:05 Subjective/Events-last exam Patient is sitting up in bed, reports dyspnea with activity since last night. Denies any cough or chest pain Objective-Cardiology Exam Last Set of Vital Signs Vital Signs 11/17/22 11/17/22 07:08 09:01 Temp 36.5 Pulse 84 Resp 16 B/P (MAP) 178/79 (112) Pulse Ox 92 O2 Delivery Room Air I&O Intake and Output 11/17/22 00:00 Intake Total 2050 ml Balance 2050 ml Intake Oral 2050 ml # Voids 11 # Bowel Movements 2 General: Alert, Oriented X3 HEENT: Atraumatic, PERRLA Lungs: Clear to Auscultation, Normal Air Movement Heart: Normal S1, Normal S2, Other Abdomen: Normal Bowel Sounds, Soft Skin: No Rashes Neuro: Normal Gait, Normal Speech Psych/Mental Status: Mental Status NL, Mood NL A/P-Cardiology Admission Diagnosis PAF HTN HLP Generalized debility/weakness Assessment/Plan Atypical chest pain, non-specific, bilateral shoulder discomfort MPI of 09-22-2022 showed no evidence of ischemia or infarction. No regional wall motion abnormality. MPI 56% Gen malaise, undetermined etiology Receiving physical therapy. Improving Dyspnea, I will give Lasix 20mg IV, evaluate CXR. Orthostatic hypotension, improving. Better today. SSS and PAF: - S/P ILR implant 03-01-[address] Garnica - continuing intermittent PAF with RVR on ILR - OAC with Xarelto - this is being followed by Dr. Miller who has advised continued medical management, recommended starting Flecainide or Amiodarone per last note in Jul 2022. - ECG on 10-14-22: NSR with LBBB and PACs Patient is back in atrial fibrillation Patient was started on flecainide 50 mg twice daily, dose increased to 100 mg twice daily, planning for electrical cardioversion later this morning. Hypothyroidism,treated with thyroid replacement therapy. Managed by PCP Hypertension, labile blood pressure Excepting higher blood pressure reading to avoid hypotensive episodes. Continue to monitor Carotid art disease, history of s/p R CEA by Dr Adams on 05/26/21 at [facility], [place], [place] Mild bilat dz per u/s of 09-10-2021 Mitral Regurg: Echocardiogram of 12-04-[address] Garnica showed LVEF 55-65%. LA mildly dilated. Mod to severe MR. PASP 40-45 mmHg Echocardiogram of 09-02-20 showed LVEF 55-60%. Grade 1 diastolic dysfunction. Mild MR. AoV sclerosis with mild regurg. PASP 40-45 mmHg COPD with nocturnal hypoxemia, managed by her PCP Extobaccoism, quit smoking when she was in her 40's Mild pulmonary hypertension, PASP 40-45 mmHg per echo of 09-02-[address] Brown on 02-14-21 did not indicate sleep apnea - a-fib seen during the test Chronic, bilateral leg swelling, likely related to venous insuff Chronic scoliosis and degenerative cervical spinal disease (chronically stiff neck and shoulders) managed by her pcp Supervisory-Addendum Brief Supervisory Addendum Participated in pt care: history, MDM, physical Personally performed: exam, history, MDM Care discussed with: THEO Results interpretation: Verified all documentation Notes: Patient was seen and evaluated with Luis, examination performed, management plan was discussed, agree with the current scribed note, I made few changes to the note using Italic font Patient was seen at bedside, sitting comfortably, having worsening dyspnea on exertion I will evaluate chest x-ray, give her a single dose of Lasix Okay for discharge from cardiology standpoint Maintaining sinus rhythm at this point. LUIS MONTENEGRO Nov 17, 2022 09:05 RITO EVANS MD Nov 17, 2022 12:39
[2022-11-17] MEDS: SENNA W/DOCUSATE (SENOKOT S) TABLET PO SCH ×2 (09:23→21:11)
[2022-11-17] MEDS: polyethylene glycoL POWDER 17 GM (MIRALAX) PACK PO SCH ×2 (09:23→21:11)
[2022-11-17] MEDS: DOCUSATE SODIUM 100 MG (COLACE) CAP PO SCH ×2 (09:23→21:10)
--- NOTE | 2022-11-17 11:12 | Occupational Ther Daily Note ---
OT Current Status-Daily Note Subjective Pt alert, sitting in recliner. Pt agrees to therapy. No c/o pain. Monitor O2 sats during session, after shower initially 88% then quickly pablo to 91% and above. Mental Status/Objective Patient Orientation: Person, Place, Time, Situation Attachments: IV ADL-Treatment Pt agrees to shower. Utilizing FWW, pt has demonstrated ability to gather items for dressing and bathing. Using shower bench, pt able to complete shower independently with grabbars and hand held shower. Pt able to complete all dressing independently. Pt stated that she had already complete oral care prior to therapy. Pt able to stand at sink to complete grooming independently. After session, pt lying in bed with call light/phone in reach. All needs met in room. Therapy Code Descriptions/Definitions Functional [place] Measure: 0=Not Assessed/NA 4=Minimal Assistance 1=Total Assistance 5=Supervision or Setup 2=Maximal Assistance 6=Modified [place] 3=Moderate Assistance 7=Complete IndependenceSCALE: Activities may be completed with or without assistive devices. 7-Pcpgjsdasw-fftxnxf completes the activity by him/herself with no assistance from a helper. 5-Set-up or Clean-up Assistance-helper sets up or cleans up; patient completes activity. [place] assists only prior to or following the activity. 4-Supervision or Touching Assistance-helper provides verbal cues and/or touching/steadying and/or contact guard assistance as patient completes activity. Assistance may be provided throughout the activity or intermittently. 3-Partial/Moderate Assistance-helper does LESS THAN HALF the effort. [place] lifts, holds or supports trunk or limbs, but provides less than half the effort. 2-Substantial/Maximal Assistance-helper does MORE THAN HALF the effort. [place] lifts or holds trunk or limbs and provides more than half the effort. 7-Tcqwiykky-vfglbc does ALL the effort. Patient does none of the effort to complete the activity. Or, the assistance of 2 or more helpers is required for the patient to complete the activity. If activity was not attempted, code reason: 7-Patient Refused. 9-Not Applicable-not attempted and the patient did not perform the activity before the current illness, exacerbation or injury. 10-Not Attempted due to Environmental Limitations-(lack of equipment, weather restraints, etc.). 88-Not Attempted due to Medical Conditions or Safety Concerns. Shower/Bathe Self (QC): 6 Upper Body Dressing (QC): 6 Lower Body Dressing (QC): 6 On/Off Footwear: 6 Toileting Hygiene (QC): 6 Toilet Transfer (QC): 6 OT Short Term Goals Short Term Goals Time Frame: Nov 18, 2022 Shower/bathe self: 5 Upper body dressin Lower body dressin Putting on/taking off footwear: 5 OT Fdc Goals Resident In Diagnostic Radiology Goals Time Frame: Nov 27, 2022 Acute change in mental status: 0 Inattention: 0 Disorganized thinkin Altered level of consciousness: 0 Eating (QC): 6 (met) Oral Hygiene (QC): 6 (met) Toileting Hygiene (QC): 6 (met) Shower/Bathe Self (QC): 6 (met) Upper Body Dressing (QC): 6 (met) Lower Body Dressing (QC): 6 (met) On/Off Footwear (QC): 6 (met) Additional Goals: 1-Demonstrate ADL Tasks, 2-Verbalize Understanding, 3- ImproveStrength/Samy 1=Demonstrate adherence to instructed precautions during ADL tasks. 2=Patient will verbalize/demonstrate understanding of assistive devices/modifications for ADL. 3=Patient will improve strength/tolerance for activity to enable patient to perform ADL's. OT Education/Plan Problem List/Assessment Assessment: Decreased Activ Tolerance Discharge Recommendations Plan/Recommendations: Continue POC Treatment Plan/Plan of Care Patient would benefit from OT for education, treatment and training to promote independence in ADL's, mobility, safety and/or upper extremity function for ADL's. Plan of Care: ADL Retraining, Functional Mobility, Group Exercise/Act as Ind, UE Funct Exercise/Act Treatment Duration: Nov 27, 2022 Frequency: At least 5 of 7 days/Wk (IRF) Estimated Hrs Per Day: 1.5 hours per day Agreement: Yes Rehab Potential: Good Time Start Time: 10:00 Stop Time: 11:00 DATE: Nov 17, 2022 Total Time Billed (hr/min): 60 Billed Treatment Time 1 visit-ADL 4 (60 min) MARIA C WEBER Nov 17, 2022 11:12
--- NOTE | 2022-11-17 13:05 | Diagnostic Imaging Report ---
INDICATION: Dyspnea. COMPARISON: 11/08/2022. TECHNIQUE: Two radiographs of the chest dated 11/17/2022. FINDINGS: Loop recorder is again noted overlying the midline chest. Cardiac silhouette is stable. No significant pulmonary vascular congestion. The lungs are again noted to be significantly hyperinflated with flattening of the diaphragm and prominence of the anterior clear space. Background chronic interstitial lung changes are noted. Small bibasilar pleural effusions are present. No pneumothorax. Scattered osseous degenerative changes without acute osseous abnormality. IMPRESSION: Small bibasilar pleural effusions. Significant background chronic obstructive pulmonary disease with associated mild chronic interstitial lung disease. Dictated by: Dictated on workstation # [id number]
--- NOTE | 2022-11-17 13:23 | PM&R Progress Note ---
Subjective HPI/CC On Admission Date Seen by Provider: Nov 17, 2022 Time Seen by Provider: 13:00 Subjective/Events-last exam 11/17/2022: Patient with left-sided sciatica Hypoxia noted Home oxygen evaluation showed no need for oxygen We will delay discharge by 1 day 11/16/2022: Doing well after successful cardioversion No pain reported Labs reviewed 11/15/2022: Patient doing a lot better No pain is reported Taking a nap currently RN has no concerns Bowels are moving 11/14/2022: Patient doing much better No more syncopal episodes Dr. Green appreciated 11/13/2022: Patient doing a lot better No more orthostasis today Working with therapy Monitor closely 11/12/2022: Patient doing a lot better Had another orthostatic syncopal episode and her blood pressure was back in the 60s No other concerns 11/11/2022: Doing a lot better No pain except left leg No falls Improved Orthostasis did occur with similar symptoms as she has had with syncopal episodes Dr Green will adjust meds 11/10/2022: Patient doing dramatically better No pain is reported except for left leg Able to ambulate a little bit Still very slow to recover Major fall risk Review of Systems General: Fatigue, Malaise Objective Exam Vital Signs Vital Signs Date Time Temp Pulse Resp B/P (MAP) Pulse Ox O2 Delivery O2 Flow Rate FiO2 11/17/22 20:15 36.7 82 18 181/81 (114) 95 Room Air Capillary Refill : General Appearance: No Apparent Distress, WD/WN, Chronically ill, Thin HEENT: PERRL/EOMI, Normal ENT Inspection, Pharynx Normal Neck: Full Range of Motion, Normal Inspection, Non Tender, Supple, Carotid Bruit Respiratory: Chest Non Tender, Lungs Clear, Normal Breath Sounds, No Accessory Muscle Use, No Respiratory Distress Cardiovascular: Regular Rate, Rhythm, No Edema, No Gallop, No JVD, No Murmur, Normal Peripheral Pulses Gastrointestinal: Normal Bowel Sounds, No Organomegaly, No Pulsatile Mass, Non Tender, Soft Back: Normal Inspection, No CVA Tenderness, No Vertebral Tenderness, Decreased Range of Motion (left leg) Extremity: Normal Capillary Refill, Normal Inspection, Normal Range of Motion (Except left leg), Non Tender, No Calf Tenderness, No Pedal Edema Neurologic/Psychiatric: Alert, Oriented x3, No Motor/Sensory Deficits, Normal Mood/Affect, Abnormal Gait, Motor Weakness (Left leg) Skin: Normal Color, Warm/Dry, Ecchymosis (left leg) Lymphatic: No Adenopathy Results/Procedures Lab Patient resulted labs reviewed. FIM Transfers Therapy Code Descriptions/Definitions Functional [place] Measure: 0=Not Assessed/NA 4=Minimal Assistance 1=Total Assistance 5=Supervision or Setup 2=Maximal Assistance 6=Modified [place] 3=Moderate Assistance 7=Complete IndependenceSCALE: Activities may be completed with or without assistive devices. 5-Buibfhjlvo-lutnmwk completes the activity by him/herself with no assistance from a helper. 5-Set-up or Clean-up Assistance-helper sets up or cleans up; patient completes activity. [place] assists only prior to or following the activity. 4-Supervision or Touching Assistance-helper provides verbal cues and/or touching/steadying and/or contact guard assistance as patient completes activi ty. Assistance may be provided throughout the activity or intermittently. 3-Partial/Moderate Assistance-helper does LESS THAN HALF the effort. [place] lifts, holds or supports trunk or limbs, but provides less than half the effort. 2-Substantial/Maximal Assistance-helper does MORE THAN HALF the effort. [place] lifts or holds trunk or limbs and provides more than half the effort. 1-Hoiecedsh-pkjdgf does ALL the effort. Patient does none of the effort to complete the activity. Or, the assistance of 2 or more helpers is required for the patient to complete the activity. If activity was not attempted, code reason: 7-Patient Refused. 9-Not Applicable-not attempted and the patient did not perform the activity before the current illness, exacerbation or injury. 10-Not Attempted due to Environmental Limitations-(lack of equipment, weather restraints, etc.). 88-Not Attempted due to Medical Conditions or Safety Concerns. Roll Left to Right (QC): 6 Sit to Lying (QC): 6 Sit to Stand (QC): 6 Chair/Bsc-br-Izdup Xfer(QC): 6 Car Transfer (QC): 6 Gait Training Does the Patient Walk?: Yes Distance: 156' Walk 10 feet (QC): 6 Walk 50 ft with 2 Turns(QC): 6 Walk 150 ft (QC): 6 Walking 10ft/uneven surface-QC: 6 Gait Persons Needed: 0 Gait Assistive Device: FWW Wheelchair Training Does the Pt Use a Wheelchair?: No Wheel 50 ft with 2 turns (QC): 9 Wheel 150 ft (QC): 9 Type of Wheelchair: N/A Stair Training Stair Training: Handrails/: 2 handrails #of Steps: 4 1 Step (curb) (QC): 6 4 Steps (QC): 6 12 Steps (QC): 5 Stairs: Pattern: Step to Balance Picking up an Object (QC): 6 ADL-Treatment Eating (QC): 6 Oral Hygiene (QC): 6 Shower/Bathe Self (QC): 6 Upper Body Dressing (QC): 6 Lower Body Dressing (QC): 6 On/Off Footwear (QC): 6 Toileting Hygiene (QC): 6 Toilet Transfer (QC): 6 Assessment/Plan Assessment and Plan Assess & Plan/Chief Complaint Assessment: 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 Possible pacemaker required Atrial fibrillation s/p cardioversion 11/16/22 Oral anticoagulation Hypothyroidism Hypertension Falls Left leg pain due to fall with hematoma from oral anticoagulation Orthostasis with near syncope on 11/11/22 Left-sided sciatica Plan: PT and OT Supportive care Fall risk 11/10/2022: Continue aggressive therapy Fall risk 11/11/2022: Dr Green to manage meds due to orthostasis 11/12/2022: Monitor syncope 11/13/2022: Monitor for orthostasis 11/14/2022: Much improved 11/15/2022: Supportive care 11/16/2022: Cardioversion 11/17/2022: Supportive care (1) Chronic heart failure with preserved ejection fraction (HFpEF) (2) Near syncope (3) Atrial fibrillation Status: Acute (4) Left foot pain Status: Acute (5) Mixed hyperlipidemia (6) Debility (7) Hypertension Status: Acute ELVA BEAUCHAMP DO Nov 17, 2022 13:23
--- NOTE | 2022-11-17 14:46 | Occupational Ther Daily Note ---
OT Current Status-Daily Note Subjective Pt alert, sitting in recliner. Pt agrees to therapy. No c/o pain. Co-treat with PT ([id number]), skills of 2 clinicians required to decrease fall risk while completing higher level dynamic balancing tasks, increasing activity tolerance while monitoring O2% and education of B LE/UE strengthening HEP. PT focusing on ambulation, dynamic balance and B LE exercise HEP while OT focusing on functional mobility, dynamic balance and B UE exercise HEP. Mental Status/Objective Patient Orientation: Person, Place, Time, Situation Attachments: IV, Telemetry ADL-Treatment Independent with oral care. Independent with footwear. Therapy Code Descriptions/Definitions Functional [place] Measure: 0=Not Assessed/NA 4=Minimal Assistance 1=Total Assistance 5=Supervision or Setup 2=Maximal Assistance 6=Modified [place] 3=Moderate Assistance 7=Complete IndependenceSCALE: Activities may be completed with or without assistive devices. 5-Bdgmiyugqr-kzmhqxn completes the activity by him/herself with no assistance from a helper. 5-Set-up or Clean-up Assistance-helper sets up or cleans up; patient completes activity. [place] assists only prior to or following the activity. 4-Supervision or Touching Assistance-helper provides verbal cues and/or touching/steadying and/or contact guard assistance as patient completes activity. Assistance may be provided throughout the activity or intermittently. 3-Partial/Moderate Assistance-helper does LESS THAN HALF the effort. [place] lifts, holds or supports trunk or limbs, but provides less than half the effort. 2-Substantial/Maximal Assistance-helper does MORE THAN HALF the effort. [place] lifts or holds trunk or limbs and provides more than half the effort. 4-Zjnimsinx-hyvfmr does ALL the effort. Patient does none of the effort to complete the activity. Or, the assistance of 2 or more helpers is required for the patient to complete the activity. If activity was not attempted, code reason: 7-Patient Refused. 9-Not Applicable-not attempted and the patient did not perform the activity before the current illness, exacerbation or injury. 10-Not Attempted due to Environmental Limitations-(lack of equipment, weather restraints, etc.). 88-Not Attempted due to Medical Conditions or Safety Concerns. Oral Hygiene (QC): 6 On/Off Footwear: 6 Other Treatment Pt demonstrated good activity tolerance with ambulation using FWW while monitoring O2%. Pt then completed higher level dynamic balancing tasks without LOB, frequent breaks. Skilled instruction for correct technique and modifications when needed for theraband HEP. After therapy, pt left in care of PT. All needs met. Education OT Patient Education: Home exercise program Teaching Recipient: Patient Teaching Methods: Demonstration, Handout, Discussion Response to Teaching: Verbalize Understanding, Return Demonstration, Reinforcement Needed OT Short Term Goals Short Term Goals Time Frame: Nov 18, 2022 Shower/bathe self: 5 Upper body dressin Lower body dressin Putting on/taking off footwear: 5 OT Diesel Lube Tech Goals Halfway Goals Time Frame: Nov 27, 2022 Acute change in mental status: 0 Inattention: 0 Disorganized thinkin Altered level of consciousness: 0 Eating (QC): 6 (met) Oral Hygiene (QC): 6 (met) Toileting Hygiene (QC): 6 (met) Shower/Bathe Self (QC): 6 (met) Upper Body Dressing (QC): 6 (met) Lower Body Dressing (QC): 6 (met) On/Off Footwear (QC): 6 (met) Additional Goals: 1-Demonstrate ADL Tasks, 2-Verbalize Understanding, 3-ImproveStrength/Samy 1=Demonstrate adherence to instructed precautions during ADL tasks. 2=Patient will verbalize/demonstrate understanding of assistive devices/modifications for ADL. 3=Patient will improve strength/tolerance for activity to enable patient to perform ADL's. OT Education/Plan Problem List/Assessment Assessment: Decreased Activ Tolerance, Decreased UE Strength, Impaired Funct Balance, Impaired Self-Care Skills Discharge Recommendations Plan/Recommendations: Continue POC Treatment Plan/Plan of Care Patient would benefit from OT for education, treatment and training to promote independence in ADL's, mobility, safety and/or upper extremity function for ADL' s. Plan of Care: ADL Retraining, Functional Mobility, Group Exercise/Act as Ind, UE Funct Exercise/Act Treatment Duration: Nov 27, 2022 Frequency: At least 5 of 7 days/Wk (IRF) Estimated Hrs Per Day: 1.5 hours per day Agreement: Yes Rehab Potential: Good Time Start Time: 13:30 Stop Time: 14:30 DATE: Nov 17, 2022 Total Time Billed (hr/min): 60 Billed Treatment Time 1 visit-ADL 1 (15 min) FA 1 (15 min) EX 2 (30 min) co-treat with PT [id number] MARIA C WEBER Nov 17, 2022 14:46
--- NOTE | 2022-11-17 15:19 | Physical Therapy Daily Note ---
PT Daily Note-Current Subjective Pt alert, sitting in recliner. Pt agrees to therapy. No c/o pain. Co-treat with PT ([id number]), skills of 2 clinicians required to decrease fall risk while completing higher level dynamic balancing tasks, increasing activity tolerance while monitoring O2% and education of B LE/UE strengthening HEP. PT focusing on ambulation, dynamic balance and B LE exercise HEP while OT focusing on functional mobility, dynamic balance and B UE exercise HEP. Pain Location: Left, Lower Location Body Site: Back Pain Description: Ache Comment: Reported but not rated Section J - Health Conditions 1. Rarely or not at all 2. Occasionally 3. Frequently 4. Almost constantly 8. Unable to answer Pain Effect on Sleep: 1 Pain Interference with Therapy: 1 Pain Interference w/Day-to-Day: 1 Mental Status Patient Orientation: Person, Place, Time, Situation Attachments: Other-See Comments (Telemetry), IV Transfers SCALE: Activities may be completed with or without assistive devices. 9-Dqujlkovgj-kzzvswp completes the activity by him/herself with no assistance from a helper. 5-Set-up or Clean-up Assistance-helper sets up or cleans up; patient completes activity. [place] assists only prior to or following the activity. 4-Supervision or Touching Assistance-helper provides verbal cues and/or touching/steadying and/or contact guard assistance as patient completes activity. Assistance may be provided throughout the activity or intermittently. 3-Partial/Moderate Assistance-helper does LESS THAN HALF the effort. [place] lifts, holds or supports trunk or limbs, but provides less than half the effort. 2-Substantial/Maximal Assistance-helper does MORE THAN HALF the effort. [place] lifts or holds trunk or limbs and provides more than half the effort. 4-Ssmirxjyd-uovdid does ALL the effort. Patient does none of the effort to complete the activity. Or, the assistance of 2 or more helpers is required for the patient to complete the activity. If activity was not attempted, code reason: 7-Patient Refused. 9-Not Applicable-not attempted and the patient did not perform the activity b efore the current illness, exacerbation or injury. 10-Not Attempted due to Environmental Limitations-(lack of equipment, weather restraints, etc.). 88-Not Attempted due to Medical Conditions or Safety Concerns. Sit to Stand (QC): 6 Weight Bearing Right Lower Extremity: Right Full Weight Bearing Left Lower Extremity: Left Full Weight Bearing Gait Training Does the Patient Walk?: Yes Distance: 600' Walk 10 feet (QC): 6 Walk 50 ft with 2 Turns(QC): 6 Walk 150 ft (QC): 6 Gait Assistive Device: FWW Wheelchair Training Does the Pt Use a Wheelchair?: No Exercises Seated Therapy Exercises: Ankle pumps, Long arc quads, Hip flexion, Glut set Seated Reps: 15 Treatments Pt demonstrated good activity tolerance with ambulation using FWW while monitoring O2%. Pt then completed higher level dynamic balancing tasks without LOB, frequent breaks. Skilled instruction for correct technique for both PT & OT Ex and modifications when needed for theraband HEP on OT Ex . OT departs at this time as PT continues to finish Ex and explain stretching before returning to [facility] to rest after amb. All needs met. Assessment Current Status: Good Progress Pt took a couple standing rest breaks as needed for slight fatigue but O2 was monitored by RT & never dropped below 91%. PT Fpc Goals Pharmaceutical Plant Operator Goals PT Pharmaceutical Plant Operator Goals Time Frame: Nov 19, 2022 Roll Left & Right (QC): 6 (Pt will be Mod I with functional mobility, with least restrictive AD, in order to be at PLOF. ) Sit to Lying (QC): 6 (Pt will be Mod I with functional mobility, with least restrictive AD, in order to be at PLOF. ) Lying-Sitting on Side/Bed(QC): 6 (Pt will be Mod I with functional mobility, with least restrictive AD, in order to be at PLOF. ) Sit to Stand (QC): 6 (Pt will be Mod I with functional mobility, with least res trictive AD, in order to be at PLOF. ) Chair/Dpi-um-Qozoh Xfer(QC): 6 (Pt will be Mod I with functional mobility, with least restrictive AD, in order to be at PLOF. ) Toilet Transfer (QC): 6 (Pt will be Mod I with functional mobility, with least restrictive AD, in order to be at PLOF. ) Car Transfer (QC): 6 (Pt will be Mod I with functional mobility, with least restrictive AD, in order to be at PLOF. ) Does the Patient Walk: Yes Walk 10 feet (QC): 6 (Pt will be Mod I with functional mobility, with least restrictive AD, in order to be at PLOF. ) Walk 50ft with 2 Turns (QC): 6 (Pt will be Mod I with functional mobility, with least restrictive AD, in order to be at PLOF. ) Walk 150 ft (QC): 6 (Pt will be Mod I with functional mobility, with least restrictive AD, in order to be at PLOF. ) Walking 10ft on Uneven Surface: 6 (Pt will be Mod I with functional mobility, with least restrictive AD, in order to be at PLOF. ) 1 Step (curb) (QC): 6 (Pt will be Mod I with functional mobility, with least restrictive AD, in order to be at PLOF. ) 4 Steps (QC): 6 (Pt will be Mod I with functional mobility, with least restrictive AD, in order to be at PLOF. ) 12 Steps (QC): 6 (Pt will be Mod I with functional mobility, with least restrictive AD, in order to be at PLOF. ) Picking up an Object (QC): 6 (Pt will be Mod I with functional mobility, with least restrictive AD, in order to be at PLOF. ) Does the Pt use WC or Scooter?: No Wheel 50 feet with 2 turns (QC: 9 Type: N/A Wheel 150 feet: 9 Type: N/A PT Plan Treatment/Plan Treatment Plan: Continue Plan of Care Treatment Plan: Bed Mobility, Concurrent Therapy, Education, Functional Activity Samy, Functional Strength, Group Therapy, Gait, Safety, Therapeutic Exercise, Transfers Treatment Duration: Nov 19, 2022 Frequency: At least 5 of 7 days/Wk (IRF) Estimated Hrs Per Day: 1.5 hours per day Patient and/or Family Agrees t: Yes Safety Risks/Education Patient Education: Issued Written HEP Teaching Recipient: Patient Teaching Methods: Demonstration, Discussion Response to Teaching: Verbalize Understanding, Return Demonstration Time Time In: 1330 Time Out: 1445 DATE: Nov 17, 2022 Total Billed Treatment Time: 75 Total Billed Treatment Co-treat w/OT for 60m ([id number]), Ind. 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
[2022-11-17] MEDS: RIVAROXABAN 15 MG TABLET (XARELTO) PO SCH (17:39)
[2022-11-17 20:15] VITALS: BP 181/81
[2022-11-17] MEDS: SERTRALINE 50 MG (ZOLOFT) TABLET PO SCH (21:11)
[2022-11-17] MEDS: LACTOBACILLUS ACIDOPHILUS (PROBIOTIC) CAPSULE PO SCH (21:11)
[2022-11-17] MEDS: ASPIRIN E.C. 81 MG (ECOTRIN) TAB PO SCH (21:11)
[2022-11-18] MEDS: ACETAMINOPHEN 325 MG TABLET PO PRN ×2 (00:03→08:52)
[2022-11-18] MEDS: LEVOTHYROXINE 75 MCG (LEVOTHROID) TABLET PO SCH (03:14)
--- NOTE | 2022-11-18 05:54 | PM&R Progress Note ---
Subjective HPI/CC On Admission Date Seen by Provider: Nov 18, 2022 Subjective/Events-last exam 11/18/2022: 11/17/2022: Patient with left-sided sciatica Hypoxia noted Home oxygen evaluation showed no need for oxygen We will delay discharge by 1 day 11/16/2022: Doing well after successful cardioversion No pain reported Labs reviewed 11/15/2022: Patient doing a lot better No pain is reported Taking a nap currently RN has no concerns Bowels are moving 11/14/2022: Patient doing much better No more syncopal episodes Dr. Green appreciated 11/13/2022: Patient doing a lot better No more orthostasis today Working with therapy Monitor closely 11/12/2022: Patient doing a lot better Had another orthostatic syncopal episode and her blood pressure was back in the 60s No other concerns 11/11/2022: Doing a lot better No pain except left leg No falls Improved Orthostasis did occur with similar symptoms as she has had with syncopal episodes Dr Green will adjust meds 11/10/2022: Patient doing dramatically better No pain is reported except for left leg Able to ambulate a little bit Still very slow to recover Major fall risk Review of Systems General: Fatigue, Malaise Objective Exam Vital Signs Vital Signs Date Time Temp Pulse Resp B/P (MAP) Pulse Ox O2 Delivery O2 Flow Rate FiO2 11/18/22 09:00 97 Room Air 11/18/22 08:33 36.7 73 18 156/70 (98) 0.00 0.00 Capillary Refill : General Appearance: No Apparent Distress, WD/WN, Chronically ill, Thin HEENT: PERRL/EOMI, Normal ENT Inspection, Pharynx Normal Neck: Full Range of Motion, Normal Inspection, Non Tender, Supple, Carotid Bruit Respiratory: Chest Non Tender, Lungs Clear, Normal Breath Sounds, No Accessory Muscle Use, No Respiratory Distress Cardiovascular: Regular Rate, Rhythm, No Edema, No Gallop, No JVD, No Murmur, Normal Peripheral Pulses Gastrointestinal: Normal Bowel Sounds, No Organomegaly, No Pulsatile Mass, Non Tender, Soft Back: Normal Inspection, No CVA Tenderness, No Vertebral Tenderness, Decreased Range of Motion (left leg) Extremity: Normal Capillary Refill, Normal Inspection, Normal Range of Motion (Except left leg), Non Tender, No Calf Tenderness, No Pedal Edema Neurologic/Psychiatric: Alert, Oriented x3, No Motor/Sensory Deficits, Normal Mood/Affect, Abnormal Gait, Motor Weakness (Left leg) Skin: Normal Color, Warm/Dry, Ecchymosis (left leg) Lymphatic: No Adenopathy Results/Procedures Lab Patient resulted labs reviewed. FIM Transfers Therapy Code Descriptions/Definitions Functional [place] Measure: 0=Not Assessed/NA 4=Minimal Assistance 1=Total Assistance 5=Supervision or Setup 2=Maximal Assistance 6=Modified [place] 3=Moderate Assistance 7=Complete IndependenceSCALE: Activities may be completed with or without assistive devices. 8-Hlfhqokdvy-trgirdd completes the activity by him/herself with no assistance from a helper. 5-Set-up or Clean-up Assistance-helper sets up or cleans up; patient completes activity. [place] assists only prior to or following the activity. 4-Supervision or Touching Assistance-helper provides verbal cues and/or touching/steadying and/or contact guard assistance as patient completes act ivity. Assistance may be provided throughout the activity or intermittently. 3-Partial/Moderate Assistance-helper does LESS THAN HALF the effort. [place] lifts, holds or supports trunk or limbs, but provides less than half the effort. 2-Substantial/Maximal Assistance-helper does MORE THAN HALF the effort. [place] lifts or holds trunk or limbs and provides more than half the effort. 6-Lsctgdkzg-dwriac does ALL the effort. Patient does none of the effort to complete the activity. Or, the assistance of 2 or more helpers is required for the patient to complete the activity. If activity was not attempted, code reason: 7-Patient Refused. 9-Not Applicable-not attempted and the patient did not perform the activity before the current illness, exacerbation or injury. 10-Not Attempted due to Environmental Limitations-(lack of equipment, weather restraints, etc.). 88-Not Attempted due to Medical Conditions or Safety Concerns. Roll Left to Right (QC): 6 Sit to Lying (QC): 6 Sit to Stand (QC): 6 Chair/Zwd-xi-Voavx Xfer(QC): 6 Car Transfer (QC): 6 Gait Training Does the Patient Walk?: Yes Distance: 600' Walk 10 feet (QC): 6 Walk 50 ft with 2 Turns(QC): 6 Walk 150 ft (QC): 6 Walking 10ft/uneven surface-QC: 6 Gait Persons Needed: 0 Gait Assistive Device: FWW Wheelchair Training Does the Pt Use a Wheelchair?: No Wheel 50 ft with 2 turns (QC): 9 Wheel 150 ft (QC): 9 Type of Wheelchair: N/A Stair Training Stair Training: Handrails/: 2 handrails #of Steps: 4 1 Step (curb) (QC): 6 4 Steps (QC): 6 12 Steps (QC): 5 Stairs: Pattern: Step to Balance Picking up an Object (QC): 6 ADL-Treatment Eating (QC): 6 Oral Hygiene (QC): 6 Shower/Bathe Self (QC): 6 Upper Body Dressing (QC): 6 Lower Body Dressing (QC): 6 On/Off Footwear (QC): 6 Toileting Hygiene (QC): 6 Toilet Transfer (QC): 6 Assessment/Plan Assessment and Plan Assess & Plan/Chief Complaint Assessment: 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 Possible pacemaker required Atrial fibrillation s/p cardioversion 11/16/22 Oral anticoagulation Hypothyroidism Hypertension Falls Left leg pain due to fall with hematoma from oral anticoagulation Orthostasis with near syncope on 11/11/22 Left-sided sciatica Plan: PT and OT Supportive care Fall risk 11/10/2022: Continue aggressive therapy Fall risk 11/11/2022: Dr Green to manage meds due to orthostasis 11/12/2022: Monitor syncope 11/13/2022: Monitor for orthostasis 11/14/2022: Much improved 11/15/2022: Supportive care 11/16/2022: Cardioversion 11/17/2022: Supportive care 11/18/2022: (1) Chronic heart failure with preserved ejection fraction (HFpEF) (2) Near syncope (3) Atrial fibrillation Status: Acute (4) Left foot pain Status: Acute (5) Mixed hyperlipidemia (6) Debility (7) Hypertension Status: Acute ELVA BEAUCHAMP DO Nov 18, 2022 05:54
[2022-11-18 08:33] VITALS: BP 156/70
[2022-11-18] MEDS: polyethylene glycoL POWDER 17 GM (MIRALAX) PACK PO SCH (08:45)
[2022-11-18] MEDS: LORATADINE (CLARITIN) 10 MG TAB PO SCH (08:52)
[2022-11-18] MEDS: SENNA W/DOCUSATE (SENOKOT S) TABLET PO SCH (08:52)
[2022-11-18] MEDS: VITAMIN D3 25 MCG (1,000 UNITS) TABLET PO SCH (08:52)
[2022-11-18] MEDS: CYANOCOBALAMIN 1,000 MCG (VITAMIN B-12) TABLET PO SCH (08:52)
[2022-11-18] MEDS: DOCUSATE SODIUM 100 MG (COLACE) CAP PO SCH (08:53)
[2022-11-18] MEDS: FLECAINIDE 100 MG (TAMBOCOR) TAB PO SCH (08:53)
--- NOTE | 2022-11-18 09:02 | Cardiology Progress Note ---
Subjective Date Seen by Provider: Nov 18, 2022 Time Seen by Provider: 08:10 Subjective/Events-last exam Patient sitting up in bed, reports dyspnea is improved. Denies any chest pain Objective-Cardiology Exam Last Set of Vital Signs Vital Signs 11/18/22 11/18/22 08:33 09:00 Temp 36.7 Pulse 73 Resp 18 B/P (MAP) 156/70 (98) Pulse Ox 97 O2 Delivery Room Air O2 Flow Rate 0.00 0.00 I&O Intake and Output 11/18/22 00:00 Intake Total 1850 ml Output Total 1000 ml Balance 850 ml Intake Oral 1850 ml Output Urine Total 1000 ml # Voids 5 # Bowel Movements 2 General: Alert, Oriented X3 HEENT: Atraumatic, PERRLA Lungs: Clear to Auscultation, Normal Air Movement Heart: Normal S1, Normal S2, Other Abdomen: Normal Bowel Sounds, Soft Skin: No Rashes Neuro: Normal Gait, Normal Speech Psych/Mental Status: Mental Status NL, Mood NL A/P-Cardiology Admission Diagnosis PAF HTN HLP Generalized debility/weakness Assessment/Plan Atypical chest pain, non-specific, bilateral shoulder discomfort MPI of 09-22-2022 showed no evidence of ischemia or infarction. No regional wall motion abnormality. MPI 56% Gen malaise, undetermined etiology Receiving physical therapy. Improving Dyspnea, responded well to dirueses, reporting improvement. Orthostatic hypotension, improved SSS and PAF: - S/P ILR implant 03-01-[address] Garnica - continuing intermittent PAF with RVR on ILR - OAC with Xarelto - this is being followed by Dr. Miller who has advised continued medical management, recommended starting Flecainide or Amiodarone per last note in Jul 2022. - ECG on 10-14-22: NSR with LBBB and PACs Underwent cardioversion on 11/16/22, currently in SR. Maintained on Flecainide 100mg BID Hypothyroidism,treated with thyroid replacement therapy. Managed by PCP Hypertension, labile blood pressure Excepting higher blood pressure reading to avoid hypotensive episodes. Continue to monitor Carotid art disease, history of s/p R CEA by Dr Adams on 05/26/21 at [facility], [place] In Mild bilat dz per u/s of 09-10-2021 Mitral Regurg: Echocardiogram of 12-04-[address] Garnica showed LVEF 55-65%. LA mildly dilated. Mod to severe MR. PASP 40-45 mmHg Echocardiogram of 09-02-20 showed LVEF 55-60%. Grade 1 diastolic dysfunction. Mild MR. AoV sclerosis with mild regurg. PASP 40-45 mmHg COPD with nocturnal hypoxemia, managed by her PCP Extobaccoism, quit smoking when she was in her 40's Mild pulmonary hypertension, PASP 40-45 mmHg per echo of 09-02-[address] Brown on 02-14-21 did not indicate sleep apnea - a-fib seen during the test Chronic, bilateral leg swelling, likely related to venous insuff Chronic scoliosis and degenerative cervical spinal disease (chronically stiff neck and shoulders) managed by her pcp Supervisory-Addendum Brief Supervisory Addendum Participated in pt care: history, MDM, physical Personally performed: exam, history, MDM Care discussed with: THEO Results interpretation: Verified all documentation Notes: Patient was seen and evaluated with Luis, examination performed, management plan was discussed, agree with the current scribed note, I made few changes to the note using Italic font Patient was seen at bedside, she was sitting comfortably, feeling better Breathing is better, responded well to the single dose of Lasix Blood pressure has been stable Okay for discharge and follow-up with Dr. Crystal as an outpatient LUIS MONTENEGRO Nov 18, 2022 09:02 RITO EVANS MD Nov 18, 2022 12:01
--- NOTE | 2022-11-18 12:00 | Discharge Summary ---
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 Possible pacemaker required Atrial fibrillation s/p cardioversion 11/16/22 Oral anticoagulation Hypothyroidism Hypertension Falls Left leg pain due to fall with hematoma from oral anticoagulation Orthostasis with near syncope on 11/11/22 Left-sided sciatica Plan: PT and OT Supportive care Fall risk 11/10/2022: Continue aggressive therapy Fall risk 11/11/2022: Dr Green to manage meds due to orthostasis 11/12/2022: Monitor syncope 11/13/2022: Monitor for orthostasis 11/14/2022: Much improved 11/15/2022: Supportive care 11/16/2022: Cardioversion 11/17/2022: Supportive care (1) Chronic heart failure with preserved ejection fraction (HFpEF) (2) Near syncope (3) Atrial fibrillation Status: Acute (4) Left foot pain Status: Acute (5) Mixed hyperlipidemia (6) Debility (7) Hypertension Status: Acute Discharge Summary Discharge Physical Examination Allergies: Coded Allergies: codeine (Unverified Allergy, Mild, Vomiting, 02/18/22) adhesive tape (Unverified Allergy, Unknown, 02/18/22) amoxicillin (Unverified Allergy, Unknown, 02/18/22) Vitals & I&Os Vital Signs Date Time Temp Pulse Resp B/P (MAP) Pulse Ox O2 Delivery O2 Flow Rate FiO2 11/18/22 14:34 36.7 74 18 156/70 97 Room Air 0.00 General Appearance: Alert, Oriented X3, Cooperative Respiratory: Clear to Auscultation Cardiovascular: Regular Rate Psych/Mental Status: Mental Status NL Hospital Course Was the Problem List Reviewed?: Yes Hospital course: Patient had an uneventful hospital course for 9 days in inpatient rehab after suspicion for cardiac pauses causing syncopal episodes at home with a fall with left leg pain in the admission at initial evaluation was congestive heart failure myopathy but she suffered more syncopal episodes when she was admitted to rehab and she was found to have orthostasis so Cozaar was discontinued with complete resolution of syncopal episodes. She was cardioverted by Dr. Green day before discharge with good results and resumption of normal sinus rhythm. All medications were reviewed and sent 10 to pharmacy and she was discharged in improved condition. Labs (last 24 hrs) Laboratory Tests 11/10/22 05:20: White Blood Count 8.3, Red Blood Count 3.75L, Hemoglobin 11.7, Hematocrit 35, Mean Corpuscular Volume 93, Mean Corpuscular Hemoglobin 31, Mean Corpuscular Hemoglobin Concent 34, Red Cell Distribution Width 12.1, Platelet Count 318, Mean Platelet Volume 8.5L, Immature Granulocyte % (Auto) 0, Neutrophils (%) (Auto) 64, Lymphocytes (%) (Auto) 22, Monocytes (%) (Auto) 9, Eosinophils (%) (Auto) 4, Basophils (%) (Auto) 1, Neutrophils # (Auto) 5.3, Lymphocytes # (Auto) 1.8, Monocytes # (Auto) 0.7, Eosinophils # (Auto) 0.3, Basophils # (Auto) 0.1, Immature Granulocyte # (Auto) 0.0, Sodium Level 134L, Potassium Level 3.9, Chloride Level 102, Carbon Dioxide Level 24, Anion Gap 8, Blood Urea Nitrogen 11, Creatinine 0.74, Estimat Glomerular Filtration Rate 81, BUN/Creatinine Ratio 15, Glucose Level 94, Calcium Level 8.7, Corrected Calcium 9.2, Total Bilirubin 0.8, Aspartate Amino Transf (AST/SGOT) 18, Alanine Aminotransferase (ALT/SGPT) 12, Alkaline Phosphatase 68, Total Protein 5.9L, Albumin 3.4 11/15/22 06:05: White Blood Count 6.9, Red Blood Count 3.64L, Hemoglobin 11.5, Hematocrit 34L, Mean Corpuscular Volume 93, Mean Corpuscular Hemoglobin 32, Mean Corpuscular Hemoglobin Concent 34, Red Cell Distribution Width 12.4, Platelet Count 303, Mean Platelet Volume 8.6L, Sodium Level 134L, Potassium Level 3.9, Chloride Level 101, Carbon Dioxide Level 25, Anion Gap 8, Blood Urea Nitrogen 12, Creatinine 0.71, Estimat Glomerular Filtration Rate 85, BUN/Creatinine Ratio 17, Glucose Level 92, Calcium Level 8.7, Magnesium Level 1.9 11/16/22 06:13: White Blood Count 7.2, Red Blood Count 3.57L, Hemoglobin 11.1L, Hematocrit 33L, Mean Corpuscular Volume 93, Mean Corpuscular Hemoglobin 31, Mean Corpuscular Hemoglobin Concent 33, Red Cell Distribution Width 12.5, Platelet Count 305, Mean Platelet Volume 8.3L, Immature Granulocyte % (Auto) 0, Neutrophils (%) (Auto) 67, Lymphocytes (%) (Auto) 20, Monocytes (%) (Auto) 7, Eosinophils (%) (Auto) 5, Basophils (%) (Auto) 2, Neutrophils # (Auto) 4.8, Lymphocytes # (Auto) 1.5, Monocytes # (Auto) 0.5, Eosinophils # (Auto) 0.3, Basophils # (Auto) 0.1, Immature Granulocyte # (Auto) 0.0, Sodium Level 134L, Potassium Level 3.8, Chloride Level 100, Carbon Dioxide Level 26, Anion Gap 8, Blood Urea Nitrogen 10, Creatinine 0.75, Estimat Glomerular Filtration Rate 79, BUN/Creatinine Ratio 13, Glucose Level 91, Calcium Level 8.7, Corrected Calcium 9.2, Total Bilirubin 0.5, Aspartate Amino Transf (AST/SGOT) 18, Alanine Aminotransferase (ALT/SGPT) 11, Alkaline Phosphatase 71, Total Protein 5.9L, Albumin 3.4 Pending Labs Laboratory Tests 11/10/22 05:20: White Blood Count 8.3, Red Blood Count 3.75, Hemoglobin 11.7, Hematocrit 35, Mean Corpuscular Volume 93, Mean Corpuscular Hemoglobin 31, Mean Corpuscular Hemoglobin Concent 34, Red Cell Distribution Width 12.1, Platelet Count 318, Mean Platelet Volume 8.5, Immature Granulocyte % (Auto) 0, Neutrophils (%) (Auto) 64, Lymphocytes (%) (Auto) 22, Monocytes (%) (Auto) 9, Eosinophils (%) (Auto) 4, Basophils (%) (Auto) 1, Neutrophils # (Auto) 5.3, Lymphocytes # (Auto) 1.8, Monocytes # (Auto) 0.7, Eosinophils # (Auto) 0.3, Basophils # (Auto) 0.1, Immature Granulocyte # (Auto) 0.0, Sodium Level 134, Potassium Level 3.9, Chloride Level 102, Carbon Dioxide Level 24, Anion Gap 8, Blood Urea Nitrogen 11, Creatinine 0.74, Estimat Glomerular Filtration Rate 81, BUN/Creatinine Ratio 15, Glucose Level 94, Calcium Level 8.7, Corrected Calcium 9.2, Total Bilirubin 0.8, Aspartate Amino Transf (AST/SGOT) 18, Alanine Aminotransferase (ALT/SGPT) 12, Alkaline Phosphatase 68, Total Protein 5.9, Albumin 3.4 11/15/22 06:05: White Blood Count 6.9, Red Blood Count 3.64, Hemoglobin 11.5, Hematocrit 34, Mean Corpuscular Volume 93, Mean Corpuscular Hemoglobin 32, Mean Corpuscular Hemoglobin Concent 34, Red Cell Distribution Width 12.4, Platelet Count 303, Mean Platelet Volume 8.6, Sodium Level 134, Potassium Level 3.9, Chloride Level 101, Carbon Dioxide Level 25, Anion Gap 8, Blood Urea Nitrogen 12, Creatinine 0.71, Estimat Glomerular Filtration Rate 85, BUN/Creatinine Ratio 17, Glucose Level 92, Calcium Level 8.7, Magnesium Level 1.9 11/16/22 06:13: White Blood Count 7.2, Red Blood Count 3.57, Hemoglobin 11.1, Hematocrit 33, Mean Corpuscular Volume 93, Mean Corpuscular Hemoglobin 31, Mean Corpuscular Hemoglobin Concent 33, Red Cell Distribution Width 12.5, Platelet Count 305, Mean Platelet Volume 8.3, Immature Granulocyte % (Auto) 0, Neutrophils (%) (Auto) 67, Lymphocytes (%) (Auto) 20, Monocytes (%) (Auto) 7, Eosinophils (%) (Auto) 5, Basophils (%) (Auto) 2, Neutrophils # (Auto) 4.8, Lymphocytes # (Auto) 1.5, Monocytes # (Auto) 0.5, Eosinophils # (Auto) 0.3, Basophils # (Auto) 0.1, Immature Granulocyte # (Auto) 0.0, Sodium Level 134, Potassium Level 3.8, Chloride Level 100, Carbon Dioxide Level 26, Anion Gap 8, Blood Urea Nitrogen 10, Creatinine 0.75, Estimat Glomerular Filtration Rate 79, BUN/Creatinine Ratio 13, Glucose Level 91, Calcium Level 8.7, Corrected Calcium 9.2, Total Bilirubin 0.5, Aspartate Amino Transf (AST/SGOT) 18, Alanine Aminotransferase (ALT/SGPT) 11, Alkaline Phosphatase 71, Total Protein 5.9, Albumin 3.4 Discharge Home Medications: Active Scripts Active Diltiazem 24Hr ER (Diltiazem HCl) 180 Mg Cap.er.24h 180 Mg PO DAILY Flecainide Acetate 100 Mg Tablet 100 Mg PO BID Reported Janette Allergy (Fexofenadine HCl) 180 Mg Tablet 180 Mg PO DAILY Align (Bifidobacterium Infantis) 10.5 Mg (10 Million Cell) Tab.chew 10.5 Mg PO HS Xarelto Tablet (Rivaroxaban) 15 Mg Tablet 15 Mg PO 1800 W/MEAL Synthroid (Levothyroxine Sodium) 88 Mcg Tablet 88 Mcg PO CHAVEZ,,,SA Sertraline HCl 25 Mg Tablet 12.5 Mg PO HS TAKES OF A 25MG TAB Synthroid (Levothyroxine Sodium) 75 Mcg Tablet 75 Mcg PO MO,,FR Atorvastatin Calcium 20 Mg Tablet 20 Mg PO HS Vitamin D3 (Cholecalciferol (Vitamin D3)) 50 Mcg (2000 Unit) Capsule 50 Mcg PO DAILY Aspirin EC (Aspirin) 81 Mg Tablet.dr 81 Mg PO HS Vitamin B-12 (Cyanocobalamin (Vitamin B-12)) 500 Mcg Tablet 500 Mcg PO DAILY Tylenol (Acetaminophen) 325 Mg Tablet 325 Mg PO Q6H PRN Vitamin D3 (Cholecalciferol (Vitamin D3)) 25 Mcg (1000 Unit) Capsule 25 Mcg PO 1800 Instructions to patient/family Please see electronic discharge instructions given to patient. Diagnosis/Problems Diagnosis/Problems (1) Chronic heart failure with preserved ejection fraction (HFpEF) (2) Near syncope (3) Atrial fibrillation Status: Acute (4) Left foot pain Status: Acute (5) Mixed hyperlipidemia (6) Debility (7) Hypertension Status: Acute ELVA BEAUCHAMP DO Nov 18, 2022 11:59
--- NOTE | 2022-11-18 12:58 | Therapy Team Discharge Summary ---
Therapy Discharge Summary Discharge Recommendations Date of Discharge Physical Therapy Roll Left to Right (QC): 6 Sit to Lying (QC): 6 Lying to Sitting/Side of Bed(Q: 6 Sit to Stand (QC): 6 Chair/Oxs-eo-Myyco Xfer(QC): 6 Toilet Transfer (QC): 5 Car Transfer (QC): 6 Does the Patient Walk: Yes Mode of Locomotion: Walk Anticipated Mode of Locomotion: Walk Walk 10 feet (QC): 6 Walk 50 ft with 2 Turns(QC): 6 Walk 150 ft (QC): 6 Walking 10ft on uneven surface: 6 Distance: 150ft Gait Assistive Device: FWW Does the Pt Use a Wheelchair: No Wheel 50 ft with 2 turns (QC): 9 Wheel 150 ft (QC): 9 Type of Wheelchair: N/A #of Steps: 4 1 Step (curb) (QC): 6 4 Steps (QC): 6 12 Steps (QC): 5 Balance Sitting Static: Normal Balance Sitting Dynamic: Normal Balance-Standing Static: Good Picking up an Object (QC): 6 Occupational Therapy Pt admitted to ARU with myopathy; cardiac. At OF, pt was independent with ADLS and functional mobility using SPC for ~1 week. Upon initial evaluation, pt was independent with eating, required SBA with footwear and CGA with oral care, showering, UE/LE dressing and footwear. OT tx focused on increasing BUE strength and activity tolerance and increasing safety and independence with ADLS and functional mobility. Pt made good progress towards goals, attaining IND level with all ADLS. Pt discharging home, d/c from OT. Decreased Activ Tolerance, Decreased UE Strength, Impaired Funct Balance, Impaired Self-Care Skills Eating (QC): 6 Oral Hygiene (QC): 6 Shower/Bathe Self (QC): 6 Upper Body Dressing (QC): 6 Lower Body Dressing (QC): 6 On/Off Footwear (QC): 6 Toileting Hygiene (QC): 6 PT Group Home Goals Director Of Partner Marketing Goals PT Group Home Goals Time Frame: Nov 19, 2022 Roll Left to Right (QC): 6 (Pt will be Mod I with functional mobility, with le ast restrictive AD, in order to be at OF. ) Sit to Lying (QC): 6 (Pt will be Mod I with functional mobility, with least restrictive AD, in order to be at PLOF. ) Lying-Sitting on Side/Bed(QC): 6 (Pt will be Mod I with functional mobility, with least restrictive AD, in order to be at PLOF. ) Sit to Stand (QC): 6 (Pt will be Mod I with functional mobility, with least restrictive AD, in order to be at PLOF. ) Chair/Etn-dq-Ccrgs Xfer(QC): 6 (Pt will be Mod I with functional mobility, with least restrictive AD, in order to be at PLOF. ) Toilet/Commode Transfer (QC): 6 (Pt will be Mod I with functional mobility, with least restrictive AD, in order to be at PLOF. ) Car Transfer (QC): 6 (Pt will be Mod I with functional mobility, with least restrictive AD, in order to be at PLOF. ) Does the Patient Walk: Yes Walk 10 feet (QC): 6 (Pt will be Mod I with functional mobility, with least restrictive AD, in order to be at PLOF. ) Walk 10ft-Uneven Surface(QC): 6 (Pt will be Mod I with functional mobility, with least restrictive AD, in order to be at PLOF. ) Walk 50ft with 2 Turns (QC): 6 (Pt will be Mod I with functional mobility, with least restrictive AD, in order to be at PLOF. ) Walk 150 ft (QC): 6 (Pt will be Mod I with functional mobility, with least restrictive AD, in order to be at PLOF. ) Does the Pt use WC or Scooter?: No Wheel 50 feet with 2 turns (QC: 9 Type: N/A Wheel 150 feet: 9 Type: N/A 1 Step (curb) (QC): 6 (Pt will be Mod I with functional mobility, with least restrictive AD, in order to be at PLOF. ) 4 Steps (QC): 6 (Pt will be Mod I with functional mobility, with least restrictive AD, in order to be at PLOF. ) 12 Steps (QC): 6 (Pt will be Mod I with functional mobility, with least restrictive AD, in order to be at PLOF. ) Picking up an Object (QC): 6 (Pt will be Mod I with functional mobility, with least restrictive AD, in order to be at PLOF. ) OT Group Home Goals Director Of Partner Marketing Goals Time Frame: Nov 27, 2022 Acute change in mental status: 0 Inattention: 0 Disorganized thinkin Altered level of consciousness: 0 Eating (QC): 6 (met) Oral Hygiene (QC): 6 (met) Toileting Hygiene (QC): 6 (met) Shower/Bathe Self (QC): 6 (met) Upper Body Dressing (QC): 6 (met) Lower Body Dressing (QC): 6 (met) On/Off Footwear (QC): 6 (met) Additional Goals: 1-Demonstrate ADL Tasks, 2-Verbalize Understanding, 3- ImproveStrength/Samy 1=Demonstrate adherence to instructed precautions during ADL tasks. 2=Patient will verbalize/demonstrate understanding of assistive devices/modifications for ADL. 3=Patient will improve strength/tolerance for activity to enable patient to perform ADL's. BERTRAM SCHULTZ OT Nov 18, 2022 12:58
--- NOTE | 2022-11-18 13:05 | Therapy Team Discharge Summary ---
Therapy Discharge Summary Discharge Recommendations Date of Discharge 11/18/2022 Therapy D/C Recommendations: Physical Therapy Home Care Physical Therapy Pt admitted to ARU on 11/09/2022 after going to the ED on 11/08/2022 for tunnel vision and near syncope. At PLOF, pt was Ind with the SPC and driving. At PT eval, pt was CGA for all aspects of functional mobility with the FWW. PT worked on B LE strengthening, balance, walking, endurance, safety, and Ind. Pt progressed well with PT and has met all set goals. Pt is Mod I with the FWW, with all aspects of functional mobility. D/C home with HH and CG A on 11/18/2022; D/C from PT Roll Left to Right (QC): 6 Sit to Lying (QC): 6 Lying to Sitting/Side of Bed(Q: 6 Sit to Stand (QC): 6 Chair/Utp-eb-Jgxbj Xfer(QC): 6 Toilet Transfer (QC): 6 Car Transfer (QC): 6 Does the Patient Walk: Yes Mode of Locomotion: Walk Anticipated Mode of Locomotion: Walk Walk 10 feet (QC): 6 Walk 50 ft with 2 Turns(QC): 6 Walk 150 ft (QC): 6 Walking 10ft on uneven surface: 6 Distance: 900ft Gait Assistive Device: FWW Does the Pt Use a Wheelchair: No Wheel 50 ft with 2 turns (QC): 9 Wheel 150 ft (QC): 9 Type of Wheelchair: N/A #of Steps: 12 1 Step (curb) (QC): 6 4 Steps (QC): 6 12 Steps (QC): 6 Walking Assistive Device: Walker Balance Sitting Static: Normal Balance Sitting Dynamic: Normal Balance-Standing Static: Good Picking up an Object (QC): 6 Occupational Therapy Decreased Activ Tolerance, Decreased UE Strength, Impaired Funct Balance, Impaired Self-Care Skills Eating (QC): 6 Oral Hygiene (QC): 6 Shower/Bathe Self (QC): 6 Upper Body Dressing (QC): 6 Lower Body Dressing (QC): 6 On/Off Footwear (QC): 6 Toileting Hygiene (QC): 6 PT Fpc Goals Nap[employer] Machine Operator Goals PT Fpc Goals Time Frame: Nov 19, 2022 Roll Left to Right (QC): 6 (Pt will be Mod I with functional mobility, with least restrictive AD, in order to be at PLOF. ) Sit to Lying (QC): 6 (Pt will be Mod I with functional mobility, with least re strictive AD, in order to be at PLOF. ) Lying-Sitting on Side/Bed(QC): 6 (Pt will be Mod I with functional mobility, with least restrictive AD, in order to be at PLOF. ) Sit to Stand (QC): 6 (Pt will be Mod I with functional mobility, with least restrictive AD, in order to be at PLOF. ) Chair/Xsb-dw-Tefar Xfer(QC): 6 (Pt will be Mod I with functional mobility, with least restrictive AD, in order to be at PLOF. ) Toilet/Commode Transfer (QC): 6 (Pt will be Mod I with functional mobility, with least restrictive AD, in order to be at PLOF. ) Car Transfer (QC): 6 (Pt will be Mod I with functional mobility, with least restrictive AD, in order to be at PLOF. ) Does the Patient Walk: Yes Walk 10 feet (QC): 6 (Pt will be Mod I with functional mobility, with least restrictive AD, in order to be at PLOF. ) Walk 10ft-Uneven Surface(QC): 6 (Pt will be Mod I with functional mobility, with least restrictive AD, in order to be at PLOF. ) Walk 50ft with 2 Turns (QC): 6 (Pt will be Mod I with functional mobility, with least restrictive AD, in order to be at PLOF. ) Walk 150 ft (QC): 6 (Pt will be Mod I with functional mobility, with least restrictive AD, in order to be at PLOF. ) Does the Pt use WC or Scooter?: No Wheel 50 feet with 2 turns (QC: 9 Type: N/A Wheel 150 feet: 9 Type: N/A 1 Step (curb) (QC): 6 (Pt will be Mod I with functional mobility, with least restrictive AD, in order to be at PLOF. ) 4 Steps (QC): 6 (Pt will be Mod I with functional mobility, with least restrictive AD, in order to be at PLOF. ) 12 Steps (QC): 6 (Pt will be Mod I with functional mobility, with least restrictive AD, in order to be at PLOF. ) Picking up an Object (QC): 6 (Pt will be Mod I with functional mobility, with least restrictive AD, in order to be at PLOF. ) OT Napkin Machine Operator Goals Napkin Machine Operator Goals Time Frame: Nov 27, 2022 Acute change in mental status: 0 Inattention: 0 Disorganized thinkin Altered level of consciousness: 0 Eating (QC): 6 (met) Oral Hygiene (QC): 6 (met) Toileting Hygiene (QC): 6 (met) Shower/Bathe Self (QC): 6 (met) Upper Body Dressing (QC): 6 (met) Lower Body Dressing (QC): 6 (met) On/Off Footwear (QC): 6 (met) Additional Goals: 1-Demonstrate ADL Tasks, 2-Verbalize Understanding, 3-Improv eStrength/Samy 1=Demonstrate adherence to instructed precautions during ADL tasks. 2=Patient will verbalize/demonstrate understanding of assistive devices/modifications for ADL. 3=Patient will improve strength/tolerance for activity to enable patient to p erform ADL's. ADALBERTO ROCHA PT Nov 18, 2022 13:05
[2022-11-18 14:34] VITALS: BP 156/70
== END 2022-11-18 14:30 | disposition home health service (06) | DRG 92 ==
PROVIDERS: ADMIT Internal Medicine; ATTEND Internal Medicine
DX: G72.89 Other specified myopathies (principal); I50.32 Chronic diastolic (congestive) heart failure; I11.0 Hypertensive heart disease with heart failure; I48.0 Paroxysmal atrial fibrillation; I49.5 Sick sinus syndrome; I95.2 Hypotension due to drugs; I27.20 Pulmonary hypertension, unspecified; S80.12XD Contusion of left lower leg, subsequent encounter; R53.81 Other malaise; E78.2 Mixed hyperlipidemia; M41.9 Scoliosis, unspecified; E03.9 Hypothyroidism, unspecified; H26.9 Unspecified cataract; H91.90 Unspecified hearing loss, unspecified ear; F41.9 Anxiety disorder, unspecified; I08.0 Rheumatic disorders of both mitral and aortic valves; J44.9 Chronic obstructive pulmonary disease, unspecified; I87.2 Venous insufficiency (chronic) (peripheral); M50.30 Other cervical disc degeneration, unspecified cervical region; T46.5X5A Adverse effect of other antihypertensive drugs, initial encounter; R07.89 Other chest pain; M54.30 Sciatica, unspecified side; Z91.81 History of falling; Z79.01 Long term (current) use of anticoagulants; Z87.891 Personal history of nicotine dependence; Z79.82 Long term (current) use of aspirin; Z79.899 Other long term (current) drug therapy; Z88.1 Allergy status to other antibiotic agents; Z88.5 Allergy status to narcotic agent; W19.XXXD Unspecified fall, subsequent encounter
CPT/HCPCS: 36415; 71046; 80048; 80053; 83735; 85025; 85027; 93005; 94760; 94761

== ENCOUNTER → 2022-11-16 | Day surgery (SDC) | payer MEDICARE ==
[~2022-11-16] MED LIST changes: +DILT180C85 PO; +NS IV 1000 ML 1,000 ML IV SCH; +NS IV 1000 ML 1,000 ML ONE; +proPOfol 200 MG/20 ML (DIPRIVAN) VIAL IV ONE
== END ==
LOC: CATH 08:58
PROVIDERS: ATTEND Internal Medicine Cardiovascular Disease
DX: I48.91 Unspecified atrial fibrillation (principal); I50.32 Chronic diastolic (congestive) heart failure; M79.672 Pain in left foot; E78.2 Mixed hyperlipidemia; I11.0 Hypertensive heart disease with heart failure; S80.12XA Contusion of left lower leg, initial encounter; R53.81 Other malaise; E03.9 Hypothyroidism, unspecified; Z79.01 Long term (current) use of anticoagulants; Z87.891 Personal history of nicotine dependence; W19.XXXA Unspecified fall, initial encounter
CPT/HCPCS: 92960; 93005

== ENCOUNTER 2022-12-10 15:26 | Inpatient (IN) | payer MEDICARE ==
[~2022-12-10] VITALS: Ht 162.6 cm; Wt 59.6 kg
[~2022-12-10 15:26] MED LIST changes: -NS IV 1000 ML 1,000 ML IV SCH; -NS IV 1000 ML 1,000 ML ONE; -proPOfol 200 MG/20 ML (DIPRIVAN) VIAL IV ONE
--- NOTE | 2022-12-10 15:41 | ED Respiratory ---
General Chief Complaint: Respiratory Problems Stated Complaint: SOB Nursing Triage Note: PT ARRIVED PER W/C FROM DR JACKSON OFFICE. PT HAS SOA, PT STATES USUALLY WEARS 1L @HS. [facility] Source: patient Exam Limitations: no limitations History of Present Illness Date Seen by Provider: Dec 10, 2022 Time Seen by Provider: 15:29 Initial Comments 82-year-old female presents to the emergency department from her doctor's office for respiratory distress. She states she was previously on oxygen via nasal cannula at night only. For the last week she has been on it [id number]. She has worsening shortness of breath. Denies any fevers, chills, chest pain. No changes in her chronic cough. She does have a history of COPD as well as congestive heart failure. She states that the last couple of days her legs have been swelling significantly. She is a very poor historian and difficult to get any history out of. She is unsure what pushed her over the edge to need oxygen all of the time. She does have a history of A-fib and currently has a loop recorder All other systems reviewed and negative except documented per HPI. Voice recognition software was used to help create this chart Allergies and Home Medications Allergies Coded Allergies: codeine (Unverified Allergy, Mild, Vomiting, 02/18/22) adhesive tape (Unverified Allergy, Unknown, 02/18/22) amoxicillin (Unverified Allergy, Unknown, 02/18/22) Patient Home Medication List Home Medication List Reviewed: Yes Acetaminophen (Tylenol) 325 Mg Tablet, 325 MG PO Q4H PRN for PAIN-MILD (1-4), (Reported) Entered as Reported by: BROOKLYNN MAURICE on 05/28/21 1031 Last Action: Held Albuterol Sulfate (Ventolin Hfa) 1 Puff Puff, 2 PUFF INH Q4H PRN for SHORTNESS OF BREATH, (Reported) Entered as Reported by: BROOKLYNN MAURICE on 12/11/22 1125 Last Action: Held Aspirin (Aspirin EC) 81 Mg Tablet.dr, 81 MG PO HS, (Reported) Entered as Reported by: BROOKLYNN MAURICE on 05/28/21 1031 Last Action: Continued Atorvastatin Calcium (Atorvastatin Calcium) 20 Mg Tablet, 20 MG PO HS, (Reported) Entered as Reported by: BROOKLYNN MAURICE on 11/09/221038 Last Action: Continued Bifidobacterium Infantis (Align) 10.5 Mg (10 Million Cell) Tab.chew, 10.5 MG PO HS, (Reported) Entered as Reported by: BROOKLYNN MAURICE on 11/09/221038 Last Action: Held Budesonide (Budesonide) 0.5 Mg/2 Ml Ampul.neb, 0.5 MG IH Q12H, (Reported) Entered as Reported by: BROOKLYNN MAURICE on 12/11/221124 Last Action: Continued Cholecalciferol (Vitamin D3) (Vitamin D3) 25 Mcg (1000 Unit) Capsule, 25 MCG PO HS, (Reported) Entered as Reported by: BROOKLYNN MAURICE on 05/28/211030 Last Action: Held Cholecalciferol (Vitamin D3) (Vitamin D3) 50 Mcg (2000 Unit) Capsule, 50 MCG PO DAILY, (Reported) Entered as Reported by: BROOKLYNN MAURICE on 11/09/221038 Last Action: Held Cyanocobalamin (Vitamin B-12) (Vitamin B-12) 500 Mcg Tablet, 500 MCG PO HS, (Reported) Entered as Reported by: BROOKLYNN MAURICE on 05/28/211030 Last Action: Converted Diltiazem HCl (Diltiazem 24Hr ER) 180 Mg Cap.er.24h, 180 MG PO 2100, (Reported) Entered as Reported by: BROOKLYNN MAURICE on 12/11/221124 Last Action: Held Flecainide Acetate (Flecainide Acetate) 100 Mg Tablet, 100 MG PO 0800,1600, (Reported) Entered as Reported by: BROOKLYNN MAURICE on 12/11/221124 Last Action: Held Fluocinonide (Fluocinonide) 0.05 % Gel..gram., 1 APPLIC TOP DAILY PRN for RASH, (Reported) Entered as Reported by: BROOKLYNN MAURICE on 12/11/221124 Last Action: Held Formoterol Fumarate (Formoterol Fumarate) 20 Mcg/2 Ml Vial.neb, 20 MCG IH Q12H, (Reported) Entered as Reported by: BROOKLYNN MAURICE on 12/11/221124 Last Action: Held Levothyroxine Sodium (Synthroid) 75 Mcg Tablet, 75 MCG PO MO,WE,FR, (Reported) Entered as Reported by: BROOKLYNN MAURICE on 11/09/221038 Last Action: Continued Levothyroxine Sodium (Synthroid) 88 Mcg Tablet, 88 MCG PO CHAVEZ,,TH,SA, (Reported) Entered as Reported by: BROOKLYNN MAURICE on 11/09/221038 Last Action: Continued Polyethylene Glycol 3350 (Miralax) 17 Gram Powd.pack, 17 GM PO DAILY, (Reported) Entered as Reported by: BROOKLYNN MAURICE on 12/11/22 112 Last Action: Continued Rivaroxaban (Xarelto Tablet) 15 Mg Tablet, 15 MG PO 1800, (Reported) Entered as Reported by: BROOKLYNN MAURICE on 11/09/221038 Last Action: Held Sertraline HCl (Sertraline HCl) 25 Mg Tablet, 12.5 MG PO HS, (Reported) Entered as Reported by: BROOKLYNN MAURICE on 11/09/221038 Last Action: Converted Discontinued Medications Diltiazem HCl (Diltiazem 24Hr ER) 180 Mg Cap.er.24h, 180 MG PO DAILY Discontinued Reason: Duplicate Order Prescribed by: ELVA BEAUCHAMP on 11/17/22553 Last Action: Discontinued Fexofenadine HCl (Janette Allergy) 180 Mg Tablet, 180 MG PO DAILY, (Reported) Discontinued Reason: No Longer Taking Entered as Reported by: BROOKLYNN MAURICE on 11/09/221038 Last Action: Discontinued Flecainide Acetate (Flecainide Acetate) 100 Mg Tablet, 100 MG PO BID Discontinued Reason: Duplicate Order Prescribed by: ELVA BEAUCHAMP on 11/17/22553 Last Action: Discontinued Review of Systems Review of Systems Constitutional: see HPI Past [id number]-Hxphrt Hx Patient Social History Tobacco Use?: No Substance use?: No Alcohol Use?: No Pt feels they are or have been: No Immunizations Up To Date Tetanus Booster (TDap): Unknown First/Initial COVID19 Vaccinat: 07/04/20 Second COVID19 Vaccination Neo: 07/25/20 Third COVID19 Vaccination Date: 04/04/21 Seasonal Allergies Seasonal Allergies: No Past Medical History Surgery/Hospitalization HX: Rt Corotid, placement LOOPE RECORDER, A FIB Conversion x2 Surgeries: Yes (BASAL CELL CA REMOVED, SX FOR ENDOMETRIOSIS) Vascular Surgery Respiratory: Yes Pneumonia, COPD Currently Using CPAP: No Currently Using BIPAP: No Cardiac: Yes Atrial Fibrillation, Chronic Edema/Swelling, Hypertension Neurological: No Reproductive Disorders: No Genitourinary: Yes Kidney Infection, Bladder Infection Gastrointestinal: No Musculoskeletal: No Scoliosis Endocrine: Yes Hypothyroidsim HEENT: Yes (CATARACTS REMOVED) Cataract Loss of Vision: Bilateral Hearing Impairment: Hard of Hearing Cancer: No Psychosocial: Yes Sleep Difficulties, Anxiety Integumentary: No Blood Disorders: No Adverse Reaction/Blood Tranf: No Family Medical History Asthma Colon cancer Deafness or hearing loss Diabetes mellitus Hypertension Neoplasm Thyroid disease Physical Exam Vital Signs - First Documented 12/10/22 15:30 Temp 36.0 Pulse 127 Resp 24 B/P (MAP) 160/96 (117) Pulse Ox 94 O2 Delivery Simple Mask O2 Flow Rate 15.00 Capillary Refill : Less Than 3 Seconds Height: 5'3.50" Weight: 157lbs. 0.9oz. 71.298809lq; 24.00 BMI Method: General Appearance: WD/WN, severe distress (Respiratory distress) HEENT: normal ENT inspection, pharynx normal Neck: non-tender, supple Respiratory: chest non-tender, other (Patient initially with severe respiratory distress, use of accessory muscles. She has significant inspiratory and expiratory wheezing though her lungs are severely tight.) Cardiovascular: tachycardia, irregularly irregular, other (3+ pitting edema bilateral lower extremities) Gastrointestinal: normal bowel sounds, non tender, soft Extremities: normal range of motion, non-tender, normal capillary refill Neurologic/Psychiatric: alert, normal mood/affect, oriented x 3 Skin: normal color, warm/dry Focused Exam Lactate Level 12/10/22 15:35: Lactic Acid Level 1.05 Lactic Acid Level Laboratory Tests Test 12/10/22 15:35 Lactic Acid Level 1.05 MMOL/L (0.50-2.00) Progress/Results/Core Measures Suspected Sepsis SIRS Temperature: Pulse: 127 Respiratory Rate: 24 Blood Pressure 160 /96 Mean: 117 12/10/22 15:35: Lactic Acid Level 1.05 Results/Orders Lab Results Laboratory Tests Test 12/10/22 15:35 12/10/22 15:53 12/10/22 16:59 Range/Units White Blood Count 10.1 4.3-11.0 10^3/uL Red Blood Count 4.00 3.80-5.11 10^6/uL Hemoglobin 11.7 11.5-16.0 g/dL Hematocrit 36 35-52 % Mean Corpuscular Volume 91 80-99 fL Mean Corpuscular Hemoglobin 29 25-34 pg Mean Corpuscular Hemoglobin Concent 32 32-36 g/dL Red Cell Distribution Width 13.2 10.0-14.5 % Platelet Count 352 130-400 10^3/uL Mean Platelet Volume 8.6 L 9.0-12.2 fL Immature Granulocyte % (Auto) 0 % Neutrophils (%) (Auto) 83 H 42-75 % Lymphocytes (%) (Auto) 8 L 12-44 % Monocytes (%) (Auto) 8 0-12 % Eosinophils (%) (Auto) 1 0-10 % Basophils (%) (Auto) 0 0-10 % Neutrophils # (Auto) 8.4 H 1.8-7.8 X 10^3 Lymphocytes # (Auto) 0.9 L 1.0-4.0 X 10^3 Monocytes # (Auto) 0.8 0.0-1.0 X 10^3 Eosinophils # (Auto) 0.1 0.0-0.3 10^3/uL Basophils # (Auto) 0.0 0.0-0.1 10^3/uL Immature Granulocyte # (Auto) 0.0 0.0-0.1 10^3/uL Neutrophils % (Manual) 88 % Lymphocytes % (Manual) 4 % Monocytes % (Manual) 3 % Eosinophils % (Manual) 1 % Band Neutrophils 4 % Acanthocytes SLIGHT Sodium Level 133 L 135-145 MMOL/L Potassium Level 3.8 3.6-5.0 MMOL/L Chloride Level 94 L 98-107 MMOL/L Carbon Dioxide Level 26 21-32 MMOL/L Anion Gap 13 5-14 MMOL/L Blood Urea Nitrogen 11 7-18 MG/DL Creatinine 0.74 0.60-1.30 MG/DL Estimat Glomerular Filtration Rate 81 BUN/Creatinine Ratio 15 Glucose Level 111 H 70-105 MG/DL Lactic Acid Level 1.05 0.50-2.00 MMOL/L Calcium Level 9.8 8.5-10.1 MG/DL Corrected Calcium 9.6 8.5-10.1 MG/DL Total Bilirubin 1.1 H 0.1-1.0 MG/DL Aspartate Amino Transf (AST/SGOT) 28 5-34 U/L Alanine Aminotransferase (ALT/SGPT) 21 0-55 U/L Alkaline Phosphatase 100 40-136 U/L Troponin I < 0.028 <0.028 NG/ML B-Type Natriuretic Peptide 652.2 H <100.0 PG/ML Total Protein 7.6 6.4-8.2 GM/DL Albumin 4.2 3.2-4.5 GM/DL Blood Gas Puncture Site RIGHT RADIAL Blood Gas Patient Temperature 37.0 Arterial Blood pH 7.38 7.37-7.43 Arterial Blood Partial Pressure CO2 51 H 35-45 MMHG Arterial Blood Partial Pressure O2 77 L 79-93 MMHG Arterial Blood HCO3 29 H 23-27 MMOL/L Arterial Blood Total CO2 30.6 21.0-31.0 MMOL/L Arterial Blood Oxygen Saturation 95 94-100 % Arterial Blood Base Excess 4.2 H -2.5-2.5 MMOL/L Steven Test N/A Blood Gas Ventilator Setting NO Blood Gas Inspired Oxygen 30% SARS-CoV-2 RNA (RT-PCR) Not Detected Not Detecte Micro Results Microbiology 12/10/22 Blood Culture - Preliminary, Resulted No growth 12/10/22 Blood Culture - Preliminary, Resulted No growth My Orders Orders - TONAREGINA DO Ekg Tracing (12/10/22 15:36) Cbc With Automated Diff (12/10/22 15:37) Comprehensive Metabolic Panel (12/10/22 15:37) Blood Culture (12/10/22 15:37) Chest 1 View, Ap/Pa Only (12/10/22 15:37) Ed Iv/Invasive Line Start (12/10/22 15:37) Ed Iv/Invasive Line Start (12/10/22 15:37) Vital Signs Adult Sepsis Patie Q15M (12/10/22 15:37) O2 (12/10/22 15:37) Lactic Acid Analyzer (12/10/22 15:37) Troponin I Ellis (12/10/22 15:37) Covid 19 Inhouse Test (12/10/22 15:37) Albuterol/Ipra Inhalation Soln (Duoneb I (12/10/22 15:45) Methylprednisolone Sod Succ (Solu-Medrol (12/10/22 15:45) Svn Small Volume Nebulizer (12/10/22 15:37) Bnp [place] (12/10/22 15:37) Arterial Blood Gas (12/10/22 15:41) Diltiazem Injection (Cardizem Injection) (12/10/22 16:00) Manual Differential (12/10/22 15:35) Arterial Blood Draw - Obtain (12/10/22 ) Piperacillin Sodium/Tazobactam (Zosyn Vi (12/10/22 16:30) Vancomycin Injection (Vancomycin Injecti (12/10/22 16:30) Furosemide Injection (Lasix Injection) (12/10/22 16:30) Ed Admission (Communication) (12/10/22 16:31) Medications Given in ED Vital Signs/I&O 12/10/22 12/10/22 12/10/22 12/10/22 15:30 15:30 15:36 15:56 Temp 36.0 Pulse 127 216 Resp 24 23 B/P (MAP) 160/96 (117) Pulse Ox 94 83 97 O2 Delivery Simple Mask Nasal Cannula Room Air O2 Flow Rate 15.00 2.00 1.00 30.00 12/10/22 16:07 Pulse 116 B/P (MAP) 161/85 Capillary Refill : Less Than 3 Seconds Blood Pressure Mean: 117 Critical Care Note Critical Care Total Time (minutes) 60 Departure Communication (Admissions) Patient is hypoxic with significant respiratory distress upon initial evaluation. Started on BiPAP with significant improvement. Chest x-ray appears to show significant pneumonia. Started on broad-spectrum antibiotics. Blood cultures were obtained prior to administration. He is not hypotensive, lactate less than 4, does not require 30 cc/kg fluid bolus. Spoke with hospitalist accepts patient in admission. I have independently reviewed all imaging and lab values. Impression Primary Impression: Atrial fibrillation with rapid ventricular response Additional Impressions: Hypoxia Respiratory failure Qualified Codes: J96.01 - Acute respiratory failure with hypoxia; J96.02 - Acute respiratory failure with hypercapnia Disposition: ADMITTED INPATIENT Condition: Stable Departure-Patient Inst. Referrals: GENA GROSSMAN DO (PCP/Family) Primary Care Physician REGINA CARBONE DO Dec 10, 2022 15:41
[2022-12-10] MEDS ORDERED: methylPREDNISolone 125 MG (Solu-MEDROL) VIAL IVP ONE (15:45)
[2022-12-10] MEDS ORDERED: RT-ALBUTEROL/IPRATROPIUM 3 ML (DUONEB) VIAL INH ONE (15:45)
[2022-12-10 15:52] LABS: BASOPHILS % (AUTO) 0 % (0-10); EOSINOPHILS # (AUTO) 0.1 10^3/uL (0.0-0.3); EOSINOPHILS % (AUTO) 1 % (0-10); HEMATOCRIT 36 % (35-52); HEMOGLOBIN 11.7 g/dL (11.5-16.0); LYMPHOCYTES # (AUTO) 0.9 X 10^3 (1.0-4.0); LYMPHOCYTES % (AUTO) 8 % (12-44); MEAN CORPUSCULAR HEMOGLOBIN 29 pg (25-34); MEAN CORPUSCULAR HGB CONC 32 g/dL (32-36); MEAN CORPUSCULAR VOLUME 91 fL (80-99); MEAN PLATELET VOLUME 8.6 fL (9.0-12.2); MONOCYTES # (AUTO) 0.8 X 10^3 (0.0-1.0); MONOCYTES % (AUTO) 8 % (0-12); NEUTROPHILS # (AUTO) 8.4 X 10^3 (1.8-7.8); NEUTROPHILS % (AUTO) 83 % (42-75); PLATELET COUNT 352 10^3/uL (130-400); WHITE BLOOD COUNT 10.1 10^3/uL (4.3-11.0)
[2022-12-10 15:56] VITALS: BP 161/92
[2022-12-10 15:59] LABS: ALBUMIN 4.2 GM/DL (3.2-4.5)
[2022-12-10 15:59] LABS: ABG BASE EXCESS 4.2 MMOL/L (-2.5-2.5); ABG OXYGEN SATURATION 95 % (94-100); ABG PCO2 51 MMHG (35-45); ABG PH 7.38 (7.37-7.43); ABG PO2 77 MMHG (79-93); ABG TCO2 30.6 MMOL/L (21.0-31.0)
[2022-12-10 16:00] LABS: INSPIRED O2 30%; VENTILATOR NO
[2022-12-10 16:00] LABS: CHLORIDE 94 MMOL/L (98-107); POTASSIUM 3.8 MMOL/L (3.6-5.0); SODIUM 133 MMOL/L (135-145)
[2022-12-10 16:01] LABS: CALCIUM 9.8 MG/DL (8.5-10.1)
[2022-12-10 16:02] LABS: GLUCOSE 111 MG/DL (70-105); TOTAL PROTEIN 7.6 GM/DL (6.4-8.2)
[2022-12-10 16:03] LABS: CARBON DIOXIDE 26 MMOL/L (21-32)
[2022-12-10 16:04] LABS: BILIRUBIN,TOTAL 1.1 MG/DL (0.1-1.0)
[2022-12-10 16:05] LABS: ALKALINE PHOSPHATASE 100 U/L (40-136)
[2022-12-10 16:06] LABS: CREATININE SERUM 0.74 MG/DL (0.60-1.30); GFR ESTIMATED 81
[2022-12-10 16:07] LABS: BUN/CREATININE RATIO 15
[2022-12-10 16:09] LABS: ALANINE AMINOTRANSFERASE 21 U/L (0-55)
--- NOTE | 2022-12-10 16:21 | Diagnostic Imaging Report ---
INDICATION: Shortness of breath. Comparison is made with prior examination of 11/08/2022. FINDINGS: There are patchy bibasilar pulmonary infiltrates. There is cardiomegaly and some venous congestion. There is no pneumothorax. Mediastinum is unremarkable. IMPRESSION: Patchy bibasilar pulmonary infiltrates. Cardiomegaly and some central pulmonary venous congestion. Dictated by: Dictated on workstation # [id number]
[2022-12-10] MEDS ORDERED: PIPERACILLIN SODIUM/TAZOBACTAM 4.5 GM in NS (IVPB) 100 ML IV ONE (16:30)
[2022-12-10] MEDS ORDERED: VANCOMYCIN INJECTION 1,000 MG in NS (IVPB) 250 ML IV ONE (16:30)
[2022-12-10] MEDS ORDERED: FUROSEMIDE 40 MG/4 ML INJ (LASIX) IVP ONE (16:30)
[2022-12-10 16:55] LABS: BAND NEUTROPHILS 4 %; EOSINOPHILS % (MANUAL) 1 %; LYMPHOCYTES % (MANUAL) 4 %; MONOCYTES % (MANUAL) 3 %; NEUTROPHILS % (MANUAL) 88 %
[2022-12-10 16:57] LABS: ACANTHOCYTES SLIGHT
[2022-12-10] MEDS ORDERED: CALCIUM CARBONATE 500 MG (TUMS) TAB.CHEW PO PRN (17:45)
[2022-12-10] MEDS ORDERED: LACTULOSE SYRUP 10GM/15ML (ENULOSE) 30ML UDC PO PRN (17:45)
[2022-12-10] MEDS ORDERED: MELATONIN 3 MG TABLET PO PRN (17:45)
[2022-12-10] MEDS ORDERED: dilTIAZem DRIP PRE-MIX 125 ML IV SCH (17:45)
[2022-12-10] MEDS ORDERED: HYDROmorphone 2 MG/ML VIAL (DILAUDID) IV PRN (17:45)
[2022-12-10] MEDS ORDERED: BISACODYL 10 MG SUPP (DULCOLAX) PR PRN (17:45)
[2022-12-10] MEDS ORDERED: diphenhydrAMINE 50 MG/ML INJ (BENADRYL) IVP PRN (17:45)
[2022-12-10] MEDS ORDERED: PHARMACY TO DOSE IV SCH (17:45)
[2022-12-10] MEDS ORDERED: polyethylene glycoL POWDER 17 GM (MIRALAX) PACK PO PRN (17:45)
[2022-12-10] MEDS ORDERED: MILK OF MAGNESIA 400 MG/5 ML 30 ML UDC PO PRN (17:45)
[2022-12-10] MEDS ORDERED: DexMEDEtomidine 250 ML DRIP 250 ML IV SCH (17:45)
[2022-12-10] MEDS ORDERED: NS IV 500 ML 500 ML IV PRN (17:45)
[2022-12-10] MEDS ORDERED: ONDANSETRON 4 MG (ZOFRAN) ORAL DISSOLVE TAB PO PRN (17:45)
[2022-12-10] MEDS ORDERED: diphenhydrAMINE 25 MG TAB (BENADRYL) PO PRN (17:45)
[2022-12-10] MEDS ORDERED: ANTACID SUSP 30 ML UDC (MYLANTA) PO PRN (17:45)
[2022-12-10] MEDS ORDERED: ONDANSETRON 4 MG/2 ML (SDV) Z0FRAN IV PRN (17:45)
[2022-12-10] MEDS ORDERED: VANCOMYCIN 1250 MG/NS 250 ML PREMIX IV NR (18:00)
[2022-12-10] MEDS: RIVAROXABAN 15 MG TABLET (XARELTO) PO SCH (18:19)
[2022-12-10 18:48] VITALS: BP 132/75
[2022-12-10 19:00] VITALS: BP 132/75
[2022-12-10] MEDS ORDERED: RT-ALBUTEROL/IPRATROPIUM 3 ML (DUONEB) VIAL INH PRN (19:15)
[2022-12-10] MEDS: CEFEPIME INJECTION 1,000 MG in NS (IVPB) 50 ML IV SCH (19:16)
[2022-12-10] MEDS: SENNOSIDES 8.6 MG (SENOKOT) TAB PO SCH (21:46)
[2022-12-10] MEDS: DOCUSATE SODIUM 100 MG (COLACE) CAP PO SCH ×2 (21:46→21:48)
[2022-12-10 21:59] VITALS: BP 101/69
[2022-12-10] MEDS: RT-ALBUTEROL/IPRATROPIUM 3 ML (DUONEB) VIAL INH SCH (21:59)
[2022-12-11] MEDS: CEFEPIME INJECTION 1,000 MG in NS (IVPB) 50 ML IV SCH ×3 (02:02→18:14)
[2022-12-11] MEDS: RT-ALBUTEROL/IPRATROPIUM 3 ML (DUONEB) VIAL INH SCH ×6 (03:27→22:20)
[2022-12-11 03:28] VITALS: BP 111/64
[2022-12-11 04:30] LABS: ABG BASE EXCESS 7.4 MMOL/L (-2.5-2.5); ABG OXYGEN SATURATION 94 % (94-100); ABG PCO2 46 MMHG (35-45); ABG PH 7.45 (7.37-7.43); ABG PO2 59 MMHG (79-93); ABG TCO2 33.2 MMOL/L (21.0-31.0)
[2022-12-11 04:31] LABS: ALLENS TEST YES-POS; INSPIRED O2 30%; PATIENT TEMP 36.4; VENTILATOR NO
[2022-12-11 04:52] LABS: BASOPHILS % (AUTO) 0 % (0-10); EOSINOPHILS % (AUTO) 0 % (0-10); HEMATOCRIT 30 % (35-52); LYMPHOCYTES # (AUTO) 0.3 10^3/uL (1.0-4.0); LYMPHOCYTES % (AUTO) 6 % (12-44); MEAN CORPUSCULAR HEMOGLOBIN 30 pg (25-34); MEAN CORPUSCULAR HGB CONC 33 g/dL (32-36); MEAN CORPUSCULAR VOLUME 89 fL (80-99); MEAN PLATELET VOLUME 8.8 fL (9.0-12.2); MONOCYTES # (AUTO) 0.1 10^3/uL (0.0-1.0); MONOCYTES % (AUTO) 2 % (0-12); NEUTROPHILS # (AUTO) 4.6 10^3/uL (1.8-7.8); NEUTROPHILS % (AUTO) 92 % (42-75); PLATELET COUNT 273 10^3/uL (130-400)
[2022-12-11 05:20] LABS: ALBUMIN 3.3 GM/DL (3.2-4.5); BILIRUBIN,TOTAL 0.9 MG/DL (0.1-1.0); CALCIUM 8.6 MG/DL (8.5-10.1); CREATININE SERUM 0.73 MG/DL (0.60-1.30); MAGNESIUM 1.9 MG/DL (1.6-2.4); POTASSIUM 3.5 MMOL/L (3.6-5.0); TOTAL PROTEIN 5.8 GM/DL (6.4-8.2)
[2022-12-11 06:36] VITALS: BP 120/64
[2022-12-11] MEDS: MAGNESIUM 1 GM/100 ML IVPB 100 ML IV SCH ×2 (06:43→06:54)
[2022-12-11] MEDS: KCL 20 MEQ TAB (K-DUR) PO SCH (06:43)
[2022-12-11] MEDS: POTASSIUM CL 10MEQ/50ML IVPB 50 ML IV SCH (06:43)
[2022-12-11] MEDS ORDERED: KCL 20 MEQ TAB (K-DUR) PO ONE (06:45)
--- NOTE | 2022-12-11 07:59 | Consultation-Cardiology ---
HPI-Cardiology Cardiology Consultation: Date of Consultation 12/11/22 Time Seen by a Provider: 08:10 Date of Admission 12-10-22 Attending Physician Cony Poole DO Admitting Physician Admitting Physician: Melina Beauchmap DO Attending Physician: Melina Beauchamp DO Consulting Physician Roxy Lopez MD HPI: Chief Complaint: Acute on chronic CHF A-fib with RVR Ms. Lozano is an 82 yr old female admitted to ICU 5 from the ED. She reports she has had progressive dyspnea and LE swelling over the course of the last 2 weeks. She states she saw Dr. Poole yesterday and was sent to the ED. She reports her room mate at the facility she resides at has been admitted recently with bronchitis. She denies any c/o CP, palpitations, syncope or near syncope. She reports gen weakness in her legs. She denies any n/v/d. She denies any fev er or chills. Review of Systems-Cardiology Review of Systems Constitutional: No chills, No fever; malaise Ears/Nose/Throat: No epistaxis Respiratory: As described under HPI Cardiovascular: As described under HPI Gastrointestinal: As described under HPI Genitourinary: No dysuria, No hematuria Skin: No rash on exposed areas, No ulcerations on exposed areas Psychiatric/Neurological: anxiety; No depression, No seizure, No focal weakness, No syncope Hematologic: No bleeding abnormalities DRU-Ljhhil-Fkzosk Hx Patient Social History Smoking Status: Former Smoker Alcohol Use?: No Pt feels they are or have been: No Tobacco type used: Cigarettes Immunizations Up To Date Tetanus Booster (TDap): Unknown Date of Pneumonia Vaccine: Jan 13, 2016 Date of Influenza Vaccine: May 28, 2021 Past Medical History PMH As described under Assessment. Family Medical History Family Medical History: She denies any family h/o CAD. Family History: Relation not specified for: Asthma Colon cancer Deafness or hearing loss Diabetes mellitus Hypertension Neoplasm Thyroid disease Allergies and Home Medications Allergies Coded Allergies: codeine (Unverified Allergy, Mild, Vomiting, 02/18/22) adhesive tape (Unverified Allergy, Unknown, 02/18/22) amoxicillin (Unverified Allergy, Unknown, 02/18/22) Patient Home Medication List Acetaminophen (Tylenol) 325 Mg Tablet, 325 MG PO Q4H PRN for PAIN-MILD (1-4), (Reported) Entered as Reported by: BROOKLYNN MAURICE on 05/28/211030 Last Action: Held Albuterol Sulfate (Ventolin Hfa) 1 Puff Puff, 2 PUFF INH Q4H PRN for SHORTNESS OF BREATH, (Reported) Entered as Reported by: BROOKLYNN MAURICE on 12/11/221124 Last Action: Held Aspirin (Aspirin EC) 81 Mg Tablet.dr, 81 MG PO HS, (Reported) Entered as Reported by: BROOKLYNN MAURICE on 05/28/211030 Last Action: Continued Atorvastatin Calcium (Atorvastatin Calcium) 20 Mg Tablet, 20 MG PO HS, (Reported) Entered as Reported by: BROOKLYNN MAURICE on 11/09/221038 Last Action: Continued Bifidobacterium Infantis (Align) 10.5 Mg (10 Million Cell) Tab.chew, 10.5 MG PO HS, (Reported) Entered as Reported by: BROOKLYNN MAURICE on 11/09/221038 Last Action: Held Budesonide (Budesonide) 0.5 Mg/2 Ml Ampul.neb, 0.5 MG IH Q12H, (Reported) Entered as Reported by: BROOKLYNN MAURICE on 12/11/221124 Last Action: Continued Cholecalciferol (Vitamin D3) (Vitamin D3) 25 Mcg (1000 Unit) Capsule, 25 MCG PO HS, (Reported) Entered as Reported by: BROOKLYNN MAURICE on 05/28/211030 Last Action: Held Cholecalciferol (Vitamin D3) (Vitamin D3) 50 Mcg (2000 Unit) Capsule, 50 MCG PO DAILY, (Reported) Entered as Reported by: BROOKLYNN MAURICE on 11/09/221038 Last Action: Held Cyanocobalamin (Vitamin B-12) (Vitamin B-12) 500 Mcg Tablet, 500 MCG PO HS, (Reported) Entered as Reported by: BROOKLYNN MAURICE on 05/28/211030 Last Action: Converted Diltiazem HCl (Diltiazem 24Hr ER) 180 Mg Cap.er.24h, 180 MG PO 2100, (Reported) Entered as Reported by: BROOKLYNN MAURICE on 12/11/221124 Last Action: Held Flecainide Acetate (Flecainide Acetate) 100 Mg Tablet, 100 MG PO 0800,1600, (Reported) Entered as Reported by: BROOKLYNN MAURICE on 12/11/221124 Last Action: Held Fluocinonide (Fluocinonide) 0.05 % Gel..gram., 1 APPLIC TOP DAILY PRN for RASH, (Reported) Entered as Reported by: BROOKLYNN MAURICE on 12/11/221124 Last Action: Held Formoterol Fumarate (Formoterol Fumarate) 20 Mcg/2 Ml Vial.neb, 20 MCG IH Q12H, (Reported) Entered as Reported by: BROOKLYNN MAURICE on 12/11/221124 Last Action: Held Levothyroxine Sodium (Synthroid) 75 Mcg Tablet, 75 MCG PO MO,WE,FR, (Reported) Entered as Reported by: BROOKLYNN MAURICE on 11/09/221038 Last Action: Continued Levothyroxine Sodium (Synthroid) 88 Mcg Tablet, 88 MCG PO CHAVEZ,,,SA, (Reported) Entered as Reported by: BROOKLYNN MAURICE on 11/09/221038 Last Action: Continued Polyethylene Glycol 3350 (Miralax) 17 Gram Powd.pack, 17 GM PO DAILY, (Reported) Entered as Reported by: BROOKLYNN MAURICE on 12/11/221124 Last Action: Continued Rivaroxaban (Xarelto Tablet) 15 Mg Tablet, 15 MG PO 1800, (Reported) Entered as Reported by: BROOKLYNN MAURICE on 11/09/221038 Last Action: Held Sertraline HCl (Sertraline HCl) 25 Mg Tablet, 12.5 MG PO HS, (Reported) Entered as Reported by: BROOKLYNN MAURICE on 11/09/221038 Last Action: Converted Discontinued Medications Diltiazem HCl (Diltiazem 24Hr ER) 180 Mg Cap.er.24h, 180 MG PO DAILY Discontinued Reason: Duplicate Order Prescribed by: MELINA BEAUCHAMP on 11/17/22553 Last Action: Discontinued Fexofenadine HCl (Janette Allergy) 180 Mg Tablet, 180 MG PO DAILY, (Reported) Discontinued Reason: No Longer Taking Entered as Reported by: BROOKLYNN MAURICE on 11/09/221038 Last Action: Discontinued Flecainide Acetate (Flecainide Acetate) 100 Mg Tablet, 100 MG PO BID Discontinued Reason: Duplicate Order Prescribed by: MELINA BEAUCHAMP on 6/13/23 0554 Last Action: Discontinued Physical Exam-Cardiology Physical Exam Vital Signs/I&O 12/14/22 12/14/22 12/15/22 12/15/22 23:00 23:21 00:00 00:00 Temp 36.7 Pulse 73 80 Resp 10 40 B/P (MAP) 159/74 (105) 159/74 (102) Pulse Ox 94 95 95 O2 Delivery High Flow N/C High Flow N/C High Flow N/C O2 Flow Rate 4.00 4.00 4.00 12/15/22 12/15/22 12/15/22 12/15/22 01:00 01:00 01:09 02:00 Temp 36.4 Pulse 77 81 82 Resp 23 14 B/P (MAP) 138/64 (103) 148/64 (92) Pulse Ox 94 97 O2 Delivery High Flow N/C High Flow N/C O2 Flow Rate 4.00 4.00 12/15/22 12/15/22 12/15/22 12/15/22 02:29 03:00 04:00 04:00 Pulse 79 73 Resp 15 B/P (MAP) 167/88 (120) 153/78 (96) Pulse Ox 91 93 94 O2 Delivery High Flow N/C High Flow N/C High Flow N/C High Flow N/C O2 Flow Rate 2.00 2.00 2.00 2.00 12/15/22 12/15/22 12/15/22 12/15/22 04:03 05:08 05:29 06:00 Temp 36.5 Pulse 82 84 Resp 21 17 B/P (MAP) 162/86 (111) 166/89 (114) Pulse Ox 93 93 O2 Delivery High Flow N/C High Flow N/C High Flow N/C O2 Flow Rate 2.00 4.00 2.00 12/15/22 12/15/22 12/15/22 12/15/22 06:19 07:00 07:00 07:53 Pulse 67 67 64 Resp 12 14 B/P (MAP) 148/80 (102) Pulse Ox 100 100 O2 Delivery NIV Bilevel NIV Bilevel O2 Flow Rate 60.00 60.00 60.00 12/15/22 12/15/22 12/15/22 12/15/22 07:56 08:00 09:00 10:00 Temp 36.0 Pulse 65 79 76 Resp 14 17 21 B/P (MAP) 155/86 (109) 154/85 (108) 125/76 (92) Pulse Ox 100 93 92 O2 Delivery NIV Bilevel NIV Bilevel NIV Bilevel O2 Flow Rate 60.00 60.00 60.00 12/15/22 10:16 Pulse Ox 95 O2 Delivery High Flow N/C O2 Flow Rate 4.00 12/15/22 00:00 Intake Total 800 ml Output Total 1550 ml Balance -750 ml Capillary Refill : Less Than 3 Seconds Constitutional: AAO x 3, well-developed, well-nourished HEENT: PERRL, hearing is well preserved, oral hygience is good Neck: No carotid bruit; carotid pulses are 2 + bilaterally Respiratory: No accessory muscle use, No respiratory distress; other (diminish ed lower lobes bilat) Cardiovascular: irregularly irregular; No JVD; S1 and S2 Gastrointestinal: No tender; soft; No guarding; audible bowel sounds Neurologic/Psychiatric: other (moves all extremities) Skin: No rash on exposed areas, No ulcerations on exposed areas Data Review Labs Laboratory Tests 12/15/22 03:39: White Blood Count 11.2H, Red Blood Count 4.00, Hemoglobin 11.6, Hematocrit 36, Mean Corpuscular Volume 90, Mean Corpuscular Hemoglobin 29, Mean Corpuscular Hemoglobin Concent 32, Red Cell Distribution Width 13.7, Platelet Count 323, Mean Platelet Volume 9.3, Immature Granulocyte % (Auto) 1, Neutrophils (%) (Auto) 91H, Lymphocytes (%) (Auto) 4L, Monocytes (%) (Auto) 4, Eosinophils (%) (Auto) 0, Basophils (%) (Auto) 0, Neutrophils # (Auto) 10.1H, Lymphocytes # (Auto) 0.5L, Monocytes # (Auto) 0.5, Eosinophils # (Auto) 0.0, Basophils # (Auto) 0.0, Immature Granulocyte # (Auto) 0.1, Sodium Level 136, Potassium Level 3.8, Chloride Level 96L, Carbon Dioxide Level 29, Anion Gap 11, Blood Urea Nitrogen 27H, Creatinine 0.89, Estimat Glomerular Filtration Rate 65, BUN/Creatinine Ratio 30, Glucose Level 117H, Calcium Level 8.9, Corrected Calcium 9.2, Phosphorus Level 3.5, Magnesium Level 2.1, Total Bilirubin 0.9, Aspartate Amino Transf (AST/SGOT) 22, Alanine Aminotransferase (ALT/SGPT) 26, Alkaline Phosphatase 72, Total Protein 6.3L, Albumin 3.6 Microbiology 12/10/22 MRSA Screen - Final, Complete MRSA not isolated 12/10/22 Blood Culture - Preliminary, Resulted No growth Radiology NAME: LATRICE LOZANO [facility] REC#: [id number] PT STATUS: REG ER : 1940 PHYSICIAN: REGINA CARBONE DO ADMIT DATE: 12/10/22/ER Signed Date of Exam:12/10/22 CHEST 1 VIEW, AP/PA ONLY INDICATION: Shortness of breath. Comparison is made with prior examination of 11/08/2022. FINDINGS: There are patchy bibasilar pulmonary infiltrates. There is cardiomegaly and some venous congestion. There is no pneumothorax. Mediastinum is unremarkable. IMPRESSION: Patchy bibasilar pulmonary infiltrates. Cardiomegaly and some central pulmonary venous congestion. Dictated by: Dictated on workstation # [id number] Dict: 12/10/22 1618 Trans: 12/10/22 1622 [id number] Interpreted by: MICHELLE MOORE MD Electronically signed by: MICHELLE MOORE MD 12/10/22 1622 ECG Impression ECG Initial ECG Impression: Atrial Fibrillation w/RVR A/P-Cardiology Assessment/Admission Diagnosis Acute on chronic diastolic CHF - treat with diuretics ?Pneumonia - management per medical services SSS and PAF - a-fib with RVR on EKG of 12-10-22 - S/P ILR implant 03-01-[address] Garnica - continuing intermittent PAF with RVR on ILR - OAC with Xarelto - this is being followed by Dr. Miller who has advised continued medical management, recommended starting Flecainide or Amiodarone per last note in Jul 2022. - MPI of 09-22-2022 showed no evidence of ischemia or infarction. No regional wall motion abnormality. MPI 56% - ECG on 10-14-22: NSR with LBBB and PACs - Underwent cardioversion on 11/16/[address] Green - was started on Flecainide 100mg BID Hypothyroidism,treated with thyroid replacement therapy. Managed by PCP Hypertension, labile blood pressure Excepting higher blood pressure reading to avoid hypotensive episodes. Carotid art disease, history of s/p R CEA by Dr Adams on 05/26/21 at [place], [place] Mild bilat dz per u/s of 09-10-2021 Mitral Regurg: Echocardiogram of 12-04-[address] Garnica showed LVEF 55-65%. LA mildly dilated. Mod to severe MR. PASP 40-45 mmHg Echocardiogram of 09-02-20 showed LVEF 55-60%. Grade 1 diastolic dysfunction. Mild MR. AoV sclerosis with mild regurg. PASP 40-45 mmHg COPD with nocturnal hypoxemia Extobaccoism, quit smoking when she was in her 40's Mild pulmonary hypertension, PASP 40-45 mmHg per echo of 09-02-[address] Brown on 02-14-21 did not indicate sleep apnea - a-fib seen during the test Chronic, bilateral leg swelling, likely related to venous insuff Chronic scoliosis and degenerative cervical spinal disease (chronically stiff neck and shoulders) Discussion and Recomendations Acute on chronic diastolic CHF - treat with diuretics - Echocardiogram today A-fib with RVR - d/t failed Flecainide tx we will stop it and change to Amiodarone for rate control - we will load with IV - continue OAC with Xarelto ?Pneumonia - management per medical services Monitor lab closely Replace electrolytes as indicated Further recs will be based on her hospital course We would like to thank medical services for this consult BRITTANEY PERRIN Dec 11, 2022 07:59
[2022-12-11] MEDS: DOCUSATE SODIUM 100 MG (COLACE) CAP PO SCH ×2 (08:00→20:56)
[2022-12-11] MEDS: FUROSEMIDE 40 MG/4 ML INJ (LASIX) IVP SCH (08:00)
[2022-12-11] MEDS: SENNOSIDES 8.6 MG (SENOKOT) TAB PO SCH ×2 (08:00→20:56)
--- NOTE | 2022-12-11 09:04 | Tele-ICU Consult ---
History of Present Illness History of Present Illness Date Seen by Provider: Dec 11, 2022 Time Seen by Provider: 08:59 History of Present Illness (Tele-ICU Physician , eICU critical care consult ) Service provided via interactive audio and video telecommunications E-CARE system to a patient admitted to ICU bed in [facility]. Patient is seen today due to persistent need of ICU care Available chart/ vitals / labs / Images reviewed Video assessment done using teleICU camera, rest of exam as per RN Discussed with RN 82 yo F with COPD, on home oxygen, also CHF, with cc of increased leg swelling Has Hx of A fib and has an implantable loop recorder, CXR shows mild hyperinflation, congestion Started on IV Vancomycin, Cefepime Was on IV Precedex, now off On 3 lpm NC with SpO2 in mid 90's, Not working hard to breathe Also in IV Cardizem for a fib, V rate now in 80's IV @ 10 ABG 7.45/46/59 WBC 5, Hb 10, BMP ok Allergies and Home Medications Allergies Coded Allergies: codeine (Unverified Allergy, Mild, Vomiting, 02/18/22) adhesive tape (Unverified Allergy, Unknown, 02/18/22) amoxicillin (Unverified Allergy, Unknown, 02/18/22) Home Medications Acetaminophen 325 Mg Tablet, 325 MG PO Q6H PRN for PAIN-MILD (1-4), (Reported) Aspirin 81 Mg Tablet.dr, 81 MG PO HS, (Reported) Atorvastatin Calcium 20 Mg Tablet, 20 MG PO HS, (Reported) Bifidobacterium Infantis 10.5 Mg (10 Million Cell) Tab.chew, 10.5 MG PO HS, (Reported) Cholecalciferol (Vitamin D3) 25 Mcg (1000 Unit) Capsule, 25 MCG PO 1800, (Reported) Cholecalciferol (Vitamin D3) 50 Mcg (2000 Unit) Capsule, 50 MCG PO DAILY, (Reported) Cyanocobalamin (Vitamin B-12) 500 Mcg Tablet, 500 MCG PO DAILY, (Reported) Diltiazem HCl 180 Mg Cap.er.24h, 180 MG PO DAILY Prescribed by: ELVA BEAUCHAMP on 11/17/22 0554 Fexofenadine HCl 180 Mg Tablet, 180 MG PO DAILY, (Reported) Flecainide Acetate 100 Mg Tablet, 100 MG PO BID Prescribed by: ELVA BEAUCHAMP on 11/17/22 0554 Levothyroxine Sodium 75 Mcg Tablet, 75 MCG PO MO,,FR, (Reported) Levothyroxine Sodium 88 Mcg Tablet, 88 MCG PO CHAVEZ,,,SA, (Reported) Rivaroxaban 15 Mg Tablet, 15 MG PO 1800 W/MEAL, (Reported) Sertraline HCl 25 Mg Tablet, 12.5 MG PO HS, (Reported) TAKES OF A 25MG TAB Past Medical/Social/Family Hx Patient Social History Tobacco Use?: Yes Tobacco type used: Cigarettes Smoking Status: Former Smoker Substance use?: No Alcohol Use?: No Pt stated abuse/neglect: No Immunizations Up To Date Influenza Vaccine Up-to-Date: Yes; Up-to-Date First/Initial COVID19 Vaccinat: 07/04/20 Second COVID19 Vaccination Neo: 07/25/20 Tetanus Booster (TDap): More Than 5 Years Hepatitis A: No Hepatitis B: No TB Skin Test: Negative Date of Pneumonia Vaccine: Jan 13, 2016 Current Status status: No status: No Advance Directives: Yes Advance Directive Location: Family to bring in copy Communicates: Verbally Primary Language: Turkish Preferred Spoken Language: Turkish Is interpretation needed?: No Sensory deficits: Vision impairment, Hearing impairment Implanted or Applied Medical D: None Review of Systems Constitutional: see HPI EENTM: see HPI Respiratory: see HPI Cardiovascular: see HPI Gastrointestinal: see HPI Genitourinary: see HPI Musculoskeletal: see HPI Skin: see HPI Psychiatric/Neurological: See HPI Focused Exam Lactate Level 12/10/22 15:35: Lactic Acid Level 1.05 Height, Weight, BMI Height: 5'3.50" Weight: 157lbs. 0.9oz. 71.269750zl; 24.19 BMI Method: Exam Exam Patient acknowledged, consented, and participated in this virtual visit which was conducted using real time audio/video Vital Signs Date Time Temp Pulse Resp B/P (MAP) Pulse Ox O2 Delivery O2 Flow Rate FiO2 12/11/22 08:17 95 Nasal Cannula 3.00 12/11/22 08:00 85 14 117/51 (80) 95 NIV Bilevel 30.00 12/11/22 07:48 36.8 12/11/22 07:00 79 12/11/22 07:00 83 130/69 (92) 95 NIV Bilevel 30.00 12/11/22 06:36 78 12 95 30.00 12/11/22 06:00 90 28 142/85 (104) 94 NIV Bilevel 30.00 12/11/22 05:00 80 18 145/70 (95) 94 NIV Bilevel 30.00 12/11/22 04:00 93 16 144/76 (98) 92 NIV Bilevel 30.00 12/11/22 04:00 37.0 12/11/22 04:00 94 NIV Bilevel 30 12/11/22 03:28 87 13 93 30.00 12/11/22 03:00 82 12 139/83 (101) 97 NIV Bilevel 30.00 12/11/22 02:00 85 12 136/70 (92) 97 NIV Bilevel 30.00 12/11/22 01:00 92 14 112/61 (78) 97 NIV Bilevel 30.00 12/11/22 01:00 96 12/11/22 00:00 98 24 106/66 (79) 96 NIV Bilevel 30.00 12/11/22 00:00 94 NIV Bilevel 30 12/10/22 23:00 80 97/50 (66) NIV Bilevel 30.00 12/10/22 22:00 90 94/53 (67) NIV Bilevel 30.00 12/10/22 21:59 93 17 96 30.00 12/10/22 21:00 89 127/69 (88) NIV Bilevel 30.00 12/10/22 20:13 104 124/71 12/10/22 20:00 105 124/71 (88) NIV Bilevel 30.00 12/10/22 20:00 96 NIV Bilevel 30 12/10/22 19:16 100 12/10/22 19:00 36.8 49 30 12/10/22 18:48 57 21 96 30.00 12/10/22 18:16 36.8 12/10/22 18:00 100 137/94 (108) NIV Bilevel 30.00 12/10/22 17:59 NIV Bilevel 30.00 12/10/22 17:29 NIV Bilevel 30 12/10/22 17:25 109 19 140/90 97 NIV CPAP 12/10/22 16:07 116 161/85 12/10/22 15:56 216 23 97 30.00 12/10/22 15:36 Room Air 1.00 12/10/22 15:30 36.0 127 24 160/96 (117) 83 Nasal Cannula 2.00 12/10/22 15:30 94 Simple Mask 15.00 I & O 12/11/22 07:00 Intake Total 620 ml Output Total 2425 ml Balance -1805 ml Height & Weight Height: 5'3.50" Weight: 157lbs. 0.9oz. 71.658342kl; 24.19 BMI Method: General Appearance: Chronically ill Respiratory: Crackles (mostly upper lobes) Cardiovascular: Irregularly Irregular Capillary Refill: Less Than 3 Seconds Gastrointestinal: normal bowel sounds, non tender, soft Extremity: No Pedal Edema, Pedal Edema (+2 ankle edema) Neurologic/Psychiatric: Oriented x3 Results Lab Laboratory Tests 12/10/22 15:35 12/11/22 04:20 Assessment/Plan Assessment/Plan CHF, COPD exacerbations a fib with RVR WIll continue on IV Cardizem, once off can change to oral, IV Lasix, IV Cefepime Critical Care: Critically Ill Patient Time spent with patient (mins): 25 REINALDO BOO MD Dec 11, 2022 09:04
--- NOTE | 2022-12-11 10:20 | Diagnostic Imaging Report ---
INDICATION: Hospitalized patient, pneumonia TECHNIQUE: Single view chest 1:54 AM CORRELATION STUDY: 12/10/2022 FINDINGS: Heart size and mediastinum are stable. Vasculature remains congested but perhaps slightly improved. Continued perihilar and basilar opacities along with interstitial markings. Small pleural effusions. Loop recorder projects over the cardiac apex. IMPRESSION: 1. Findings favor pulmonary edema, perhaps minimally improved from prior. Dictated by: Dictated on workstation # [id number]
[2022-12-11] MEDS ORDERED: AMIODARONE FOR BOLUS 150 MG in NS (IVPB) 100 ML IV ONE (10:30)
[2022-12-11] MEDS: AMIODARONE INJECTION 450 MG in NORMAL SALINE 250 ML IV SCH ×2 (10:57→23:44)
[2022-12-11] MEDS: VANCOMYCIN 1 GM/NS 250 ML IVPB IV SCH ×2 (11:00)
[2022-12-11] MEDS ORDERED: POLY17PO6 PO (11:25)
[2022-12-11] MEDS ORDERED: BUDE0.5A IH (11:25)
[2022-12-11] MEDS ORDERED: FLUO60GE TOP (11:25)
[2022-12-11] MEDS ORDERED: RT-ALBUINH INH (11:25)
[2022-12-11] MEDS ORDERED: FLEC100T PO (11:25)
[2022-12-11] MEDS ORDERED: FORM20VI3 IH (11:25)
[2022-12-11] MEDS ORDERED: DILT180C85 PO (11:25)
--- NOTE | 2022-12-11 13:44 | History & Physical ---
SANDEEP PEREZ 12/11/22 1344: History of Present Illness History of Present Illness Reason for visit/HPI Tanna Mendoza is a 82yo F with past medical hx of COPD, CHF, HLD, hypothyroidism, afib, and carotid stenosis who presented to the ED on 12/10 after presenting to her primary care provider with a 1 week history of worsening shortness of breath. She was found to be in afib w RVR and showed bibasilar infiltrates on CXR. Her BNP was elevated to 652. She was placed on bipap overnight with improvement in her oxygenation. She was admitted to the ICU for management of her afib w RVR and volume overload. This morning she is off bipap now on nasal cannula and reports breathing better and feeling less short of breath. Her symptoms began about 1 week ago with shortness of breath requiring her to wear oxygen at all times when she usually wears it at night only. She also noticed some LE swelling that began a few days ago. She recalls being around a sick contact at her facility about 1 week ago. She never felt any fever or upper respiratory infection symptoms. She does not any palpitations or chest pain. She has gone into RVR in the past and does not notice when she does. No N/V/D or fever/chills. Date of Admission Dec 10, 2022 at 17:24 Date Seen by a Provider: Dec 11, 2022 Time Seen by a Provider: 11:00 I consulted on this patient on 12/11/22 13:39 Attending Physician Cony Poole DO Admitting Physician Admitting Physician: Melina Beauchamp DO Attending Physician: Melina Beauchamp DO Consult Allergies and Home Medications Allergies Coded Allergies: codeine (Unverified Allergy, Mild, Vomiting, 02/18/22) adhesive tape (Unverified Allergy, Unknown, 02/18/22) amoxicillin (Unverified Allergy, Unknown, 02/18/22) Patient Home Medication List Home Medication List Reviewed: Yes Acetaminophen (Tylenol) 325 Mg Tablet, 325 MG PO Q4H PRN for PAIN-MILD (1-4), (Reported) Entered as Reported by: BROOKLYNN MAURICE on 05/28/21 1031 Last Action: Reviewed Albuterol Sulfate (Ventolin Hfa) 1 Puff Puff, 2 PUFF INH Q4H PRN for SHORTNESS OF BREATH, (Reported) Entered as Reported by: BROOKLYNN MAURICE on 12/11/221124 Last Action: Reviewed Aspirin (Aspirin EC) 81 Mg Tablet.dr, 81 MG PO HS, (Reported) Entered as Reported by: BROOKLYNN MAURICE on 05/28/21 103 Last Action: Reviewed Atorvastatin Calcium (Atorvastatin Calcium) 20 Mg Tablet, 20 MG PO HS, (Reported) Entered as Reported by: BROOKLYNN MAURICE on 11/09/221038 Last Action: Reviewed Bifidobacterium Infantis (Align) 10.5 Mg (10 Million Cell) Tab.chew, 10.5 MG PO HS, (Reported) Entered as Reported by: BROOKLYNN MAURICE on 11/09/221038 Last Action: Reviewed Budesonide (Budesonide) 0.5 Mg/2 Ml Ampul.neb, 0.5 MG IH Q12H, (Reported) Entered as Reported by: BROOKLYNN MAURICE on 12/11/221124 Last Action: Reviewed Cholecalciferol (Vitamin D3) (Vitamin D3) 25 Mcg (1000 Unit) Capsule, 25 MCG PO HS, (Reported) Entered as Reported by: BROOKLYNN MAURICE on 05/28/211030 Last Action: Reviewed Cholecalciferol (Vitamin D3) (Vitamin D3) 50 Mcg (2000 Unit) Capsule, 50 MCG PO DAILY, (Reported) Entered as Reported by: BROOKLYNN MAURICE on 11/09/221038 Last Action: Reviewed Cyanocobalamin (Vitamin B-12) (Vitamin B-12) 500 Mcg Tablet, 500 MCG PO HS, (Reported) Entered as Reported by: BROOKLYNN MAURICE on 05/28/21 103 Last Action: Reviewed Diltiazem HCl (Diltiazem 24Hr ER) 180 Mg Cap.er.24h, 180 MG PO 2100, (Reported) Entered as Reported by: BROOKLYNN MAURICE on 12/11/221124 Last Action: Reviewed Flecainide Acetate (Flecainide Acetate) 100 Mg Tablet, 100 MG PO 0800,1600, (Reported) Entered as Reported by: BROOKLYNN MAURICE on 12/11/221124 Last Action: Reviewed Fluocinonide (Fluocinonide) 0.05 % Gel..gram., 1 APPLIC TOP DAILY PRN for RASH, (Reported) Entered as Reported by: BROOKLYNN MAURICE on 12/11/221124 Last Action: Reviewed Formoterol Fumarate (Formoterol Fumarate) 20 Mcg/2 Ml Vial.neb, 20 MCG IH Q12H, (Reported) Entered as Reported by: BROOKLYNN MAURICE on 12/11/221124 Last Action: Reviewed Levothyroxine Sodium (Synthroid) 75 Mcg Tablet, 75 MCG PO MO,WE,FR, (Reported) Entered as Reported by: BROOKLYNN MAURICE on 11/09/221038 Last Action: Reviewed Levothyroxine Sodium (Synthroid) 88 Mcg Tablet, 88 MCG PO CHAVEZ,TU,TH,SA, (Reported) Entered as Reported by: BROOKLYNN MAURICE on 11/09/221038 Last Action: Reviewed Polyethylene Glycol 3350 (Miralax) 17 Gram Powd.pack, 17 GM PO DAILY, (Reported) Entered as Reported by: BROOKLYNN MAURICE on 12/11/221124 Last Action: Reviewed Rivaroxaban (Xarelto Tablet) 15 Mg Tablet, 15 MG PO 1800, (Reported) Entered as Reported by: BROOKLYNN MAURICE on 11/09/221038 Last Action: Reviewed Sertraline HCl (Sertraline HCl) 25 Mg Tablet, 12.5 MG PO HS, (Reported) Entered as Reported by: BROOKLYNN MAURICE on 11/09/221038 Last Action: Reviewed Discontinued Medications Diltiazem HCl (Diltiazem 24Hr ER) 180 Mg Cap.er.24h, 180 MG PO DAILY Discontinued Reason: Duplicate Order Prescribed by: MELINA BEAUCHAMP on 11/17/22553 Last Action: Discontinued Fexofenadine HCl (Janette Allergy) 180 Mg Tablet, 180 MG PO DAILY, (Reported) Discontinued Reason: No Longer Taking Entered as Reported by: BROOKLYNN MAURICE on 11/09/221038 Last Action: Discontinued Flecainide Acetate (Flecainide Acetate) 100 Mg Tablet, 100 MG PO BID Discontinued Reason: Duplicate Order Prescribed by: MELINA BEAUCHAMP on 11/17/22553 Last Action: Discontinued Past Mmidztl-Uxfzlw-Dphjot Hx Patient Social History Tobacco Use?: Yes Tobacco type used: Cigarettes Smoking Status: Former Smoker Substance use?: No Alcohol Use?: No Pt feels they are or have been: No Immunizations Up To Date Date of Influenza Vaccine: May 28, 2021 First/Initial COVID19 Vaccinat: 07/04/20 Second COVID19 Vaccination Neo: 07/25/20 Tetanus Booster (TDap): More Than 5 Years Hepatitis A: No Hepatitis B: No Date of Pneumonia Vaccine: Jan 13, 2016 Seasonal Allergies Seasonal Allergies: No Current Status status: No status: No Advance Directives: Yes Advance Directive Location: Family to bring in copy Communicates: Verbally Primary Language: Arabic Preferred Spoken Language: Arabic Is interpretation needed?: No Sensory deficits: Vision impairment, Hearing impairment Implanted or Applied Medical D: None Past Medical History Surgeries: Vascular Surgery (carotid) Pneumonia, COPD Currently Using CPAP: No Currently Using BIPAP: No Atrial Fibrillation, Chronic Edema/Swelling, High Cholesterol, Hypertension Kidney Infection, Bladder Infection Hypothyroidsim Cataract Hearing Impairment: Hard of Hearing Sleep Difficulties, Anxiety Blood Disorders: No Adverse Reaction/Blood Tranf: No Family Medical History Asthma Colon cancer Deafness or hearing loss Diabetes mellitus Hypertension Neoplasm Thyroid disease Asthma, Cancer, Diabetes, Hypertension Review of Systems Constitutional: No chills, No diaphoresis, No fever Respiratory: No cough; short of breath; No wheezing Cardiovascular: No chest pain, No palpitations, No syncope Gastrointestinal: No abdominal pain, No nausea, No vomiting Genitourinary: No dysuria, No hematuria Skin: No change in color Psychiatric/Neurological: Denies Headache, Denies Seizure Physical Exam Vital Signs Vital Signs - First Documented 12/10/22 12/10/22 15:30 17:29 Temp 36.0 Pulse 127 Resp 24 B/P (MAP) 160/96 (117) Pulse Ox 94 O2 Delivery Simple Mask O2 Flow Rate 15.00 FiO2 30 Capillary Refill : Less Than 3 Seconds Height, Weight, BMI Height: 5'3.50" Weight: 157lbs. 0.9oz. [id number]; 24.19 BMI Method: General Appearance: No Apparent Distress, WD/WN HEENT: PERRL/EOMI, Moist Mucous Membranes Neck: Supple Respiratory: Chest Non Tender, No Accessory Muscle Use, Decreased Breath Sounds (bases bilaterally) Cardiovascular: Normal Peripheral Pulses, Irregularly Irregular, Tachycardia Gastrointestinal: Non Tender, Soft Rectal: Deferred Extremity: Pedal Edema, Swelling Neurologic/Psychiatric: Alert, Oriented x3, Normal Mood/Affect Skin: Normal Color, Warm/Dry Assessment/Plan Assessment and Plan Acute exacerbation of CHF Acute respiratory distress requiring bipap Lower extremity edema COPD exacerbation Weaned off bipap now on nasal cannula, continue oxygen supplementation 40mg IV lasix daily, monitor urine output fluid restriction monitor kidney function and urine output, normal BUN and creatinine as of now Continue duonebs and decadron Afib with RVR Cardiology consulted appreciate recs Tele ICU consulted and appreciate recs Was on cardizem drip switched to amiodarone has been on flecanaide in the past, failed continue telemetry monitoring Rate improved Echo today Oral anticoagulation wth xarelto 15mg daily Possible CAP bibasilar infiltrates present on CXR Cefepime 1gm and Vanc 1gm Normal WBC count Lactic acid normal at 1.05 Hypothyroidism HTN blood pressure at acceptable range now, continue to monitor Diet- regular DVT ppx- anticoagulated w xarelto Code status- full MELINA BEAUCHAMP 12/11/22 2230: Allergies and Home Medications Allergies Coded Allergies: codeine (Unverified Allergy, Mild, Vomiting, 02/18/22) adhesive tape (Unverified Allergy, Unknown, 02/18/22) amoxicillin (Unverified Allergy, Unknown, 02/18/22) Patient Home Medication List Acetaminophen (Tylenol) 325 Mg Tablet, 325 MG PO Q4H PRN for PAIN-MILD (1-4), (Reported) Entered as Reported by: BROOKLYNN MAURICE on 05/28/21 1031 Last Action: Reviewed Albuterol Sulfate (Ventolin Hfa) 1 Puff Puff, 2 PUFF INH Q4H PRN for SHORTNESS OF BREATH, (Reported) Entered as Reported by: BROOKLYNN MAURICE on 12/11/22 1125 Last Action: Reviewed Aspirin (Aspirin EC) 81 Mg Tablet.dr, 81 MG PO HS, (Reported) Entered as Reported by: BROOKLYNN MAURICE on 05/28/21 1031 Last Action: Reviewed Atorvastatin Calcium (Atorvastatin Calcium) 20 Mg Tablet, 20 MG PO HS, (Reported) Entered as Reported by: BROOKLYNN MAURICE on 11/09/22 1039 Last Action: Reviewed Bifidobacterium Infantis (Align) 10.5 Mg (10 Million Cell) Tab.chew, 10.5 MG PO HS, (Reported) Entered as Reported by: BROOKLYNN MAURICE on 11/09/22 1039 Last Action: Reviewed Budesonide (Budesonide) 0.5 Mg/2 Ml Ampul.neb, 0.5 MG IH Q12H, (Reported) Entered as Reported by: BROOKLYNN MAURICE on 12/11/221124 Last Action: Reviewed Cholecalciferol (Vitamin D3) (Vitamin D3) 25 Mcg (1000 Unit) Capsule, 25 MCG PO HS, (Reported) Entered as Reported by: BROOKLYNN MAURICE on 05/28/211030 Last Action: Reviewed Cholecalciferol (Vitamin D3) (Vitamin D3) 50 Mcg (2000 Unit) Capsule, 50 MCG PO DAILY, (Reported) Entered as Reported by: BROOKLYNN MAURICE on 11/09/221038 Last Action: Reviewed Cyanocobalamin (Vitamin B-12) (Vitamin B-12) 500 Mcg Tablet, 500 MCG PO HS, (Reported) Entered as Reported by: BROOKLYNN MAURICE on 05/28/211030 Last Action: Reviewed Diltiazem HCl (Diltiazem 24Hr ER) 180 Mg Cap.er.24h, 180 MG PO 2100, (Reported) Entered as Reported by: BROOKLYNN MAURICE on 12/11/221124 Last Action: Reviewed Flecainide Acetate (Flecainide Acetate) 100 Mg Tablet, 100 MG PO 0800,1600, (Reported) Entered as Reported by: BROOKLYNN MAURICE on 12/11/221124 Last Action: Reviewed Fluocinonide (Fluocinonide) 0.05 % Gel..gram., 1 APPLIC TOP DAILY PRN for RASH, (Reported) Entered as Reported by: BROOKLYNN MAURICE on 12/11/221124 Last Action: Reviewed Formoterol Fumarate (Formoterol Fumarate) 20 Mcg/2 Ml Vial.neb, 20 MCG IH Q12H, (Reported) Entered as Reported by: BROOKLYNN MAURICE on 12/11/221124 Last Action: Reviewed Levothyroxine Sodium (Synthroid) 75 Mcg Tablet, 75 MCG PO MO,WE,FR, (Reported) Entered as Reported by: BROOKLYNN MAURICE on 11/09/221038 Last Action: Reviewed Levothyroxine Sodium (Synthroid) 88 Mcg Tablet, 88 MCG PO CHAVEZ,TU,TH,SA, (Reported) Entered as Reported by: BROOKLYNN MAURICE on 11/09/221038 Last Action: Reviewed Polyethylene Glycol 3350 (Miralax) 17 Gram Powd.pack, 17 GM PO DAILY, (Reported) Entered as Reported by: BROOKLYNN MAURICE on 12/11/22 1125 Last Action: Reviewed Rivaroxaban (Xarelto Tablet) 15 Mg Tablet, 15 MG PO 1800, (Reported) Entered as Reported by: BROOKLYNN MAURICE on 11/09/22 103 Last Action: Reviewed Sertraline HCl (Sertraline HCl) 25 Mg Tablet, 12.5 MG PO HS, (Reported) Entered as Reported by: BROOKLYNN MAURICE on 11/09/22 103 Last Action: Reviewed Discontinued Medications Diltiazem HCl (Diltiazem 24Hr ER) 180 Mg Cap.er.24h, 180 MG PO DAILY Discontinued Reason: Duplicate Order Prescribed by: MELINA BEAUCHAMP on 11/17/22 0554 Last Action: Discontinued Fexofenadine HCl (Janette Allergy) 180 Mg Tablet, 180 MG PO DAILY, (Reported) Discontinued Reason: No Longer Taking Entered as Reported by: BROOKLYNN MAURICE on 11/09/221038 Last Action: Discontinued Flecainide Acetate (Flecainide Acetate) 100 Mg Tablet, 100 MG PO BID Discontinued Reason: Duplicate Order Prescribed by: MELINA BEAUCHAMP on 11/17/22553 Last Action: Discontinued Past Sqcjjmg-Vcxrzc-Wilhwz Hx Family Medical History Asthma Colon cancer Deafness or hearing loss Diabetes mellitus Hypertension Neoplasm Thyroid disease Assessment/Plan Assessment and Plan Assessment: Acute hypoxic hypercapneic resp failure requiring biPAP Congestive heart failure myopathy HAP Atrial fibrillation s/p cardioversion 11/16/22 Oral anticoagulation Hypothyroidism Hypertension Falls Recent left leg pain due to fall with hematoma from oral anticoagulation Orthostasis with near syncope on 11/11/22 Left-sided sciatica Problems: (1) Chronic heart failure with preserved ejection fraction (HFpEF) (2) Respiratory distress Status: Acute (3) Pulmonary hypertension (4) Mitral regurgitation (5) Primary hypertension (6) Atrial fibrillation status post cardioversion (7) Paroxysmal atrial fibrillation Admission Diagnosis Admission Status: Inpatient Order (span 2 midnights) Reason for Inpatient Admission: resp failure Supervisory-Addendum Brief Verification & Attestation Participated in pt care: history, MDM, physical Personally performed: exam, history, MDM, supervision of care Care discussed with: Medical Student Procedures: n/a Results interpretation: Verified all documentation Verification and Attestation of Medical Student E/M Service A medical student performed and documented this service in my presence. I reviewed and verified all information documented by the medical student and made modifications to such information, when appropriate. I personally performed the physical exam and medical decision making. Melina Beauchamp, Dec 11, 2022,22:28 SANDEEP PEREZ Dec 11, 2022 13:44 MELINA BEAUCHAMP DO Dec 11, 2022 22:30
--- NOTE | 2022-12-11 15:51 | Consultation-Cardiology ---
HPI-Cardiology Cardiology Consultation: Date of Consultation 12/11/22 Time Seen by a Provider: 09:30 Date of Admission Attending Physician Cony Poole DO Admitting Physician Admitting Physician: Melina Beauchamp DO Attending Physician: Melina Beauchamp DO Consulting Physician TINA BERG MD, MA, FACP, FACC, [facility] Physician requesting consult: Dr Beauchamp HPI: Chief Complaint: Acute on chronic CHF A-fib with RVR Ms. Mendoza is an 82 yr old female admitted to ICU 5 from the ED. She reports she has had progressive dyspnea and LE swelling over the course of the last 2 weeks. She states she saw Dr. Poole yesterday and was sent to the ED. She reports her room mate at the facility she resides at has been admitted recently with bronchitis. She denies any c/o CP, palpitations, syncope or near syncope. She reports gen weakness in her legs. She denies any n/v/d. She denies any fever or chills. Review of Systems-Cardiology Review of Systems Constitutional: No chills, No fever; malaise Ears/Nose/Throat: No epistaxis Respiratory: As described under HPI Cardiovascular: As described under HPI Gastrointestinal: As described under HPI Genitourinary: No dysuria, No hematuria Skin: No rash on exposed areas, No ulcerations on exposed areas Psychiatric/Neurological: anxiety; No depression, No seizure, No focal weakness, No syncope Hematologic: No bleeding abnormalities ECS-Gkmbev-Safnfg Hx Patient Social History Smoking Status: Former Smoker Alcohol Use?: No Pt feels they are or have been: No Tobacco type used: Cigarettes Immunizations Up To Date Tetanus Booster (TDap): Unknown Date of Pneumonia Vaccine: Jan 13, 2016 Date of Influenza Vaccine: May 28, 2021 Past Medical History PMH As described under Assessment. Family Medical History Family Medical History: She denies any family h/o CAD. Family History: Asthma Colon cancer Deafness or hearing loss Diabetes mellitus Hypertension Neoplasm Thyroid disease Allergies and Home Medications Allergies Coded Allergies: codeine (Unverified Allergy, Mild, Vomiting, 02/18/22) adhesive tape (Unverified Allergy, Unknown, 02/18/22) amoxicillin (Unverified Allergy, Unknown, 02/18/22) Patient Home Medication List Home Medication List Reviewed: Yes Acetaminophen (Tylenol) 325 Mg Tablet, 325 MG PO Q4H PRN for PAIN-MILD (1-4), (Reported) Entered as Reported by: BROOKLYNN MAURICE on 05/28/211030 Last Action: Reviewed Albuterol Sulfate (Ventolin Hfa) 1 Puff Puff, 2 PUFF INH Q4H PRN for SHORTNESS OF BREATH, (Reported) Entered as Reported by: BROOKLYNN MAURICE on 12/11/221124 Last Action: Reviewed Aspirin (Aspirin EC) 81 Mg Tablet.dr, 81 MG PO HS, (Reported) Entered as Reported by: BROOKLYNN MAURICE on 05/28/211030 Last Action: Reviewed Atorvastatin Calcium (Atorvastatin Calcium) 20 Mg Tablet, 20 MG PO HS, (Reported) Entered as Reported by: BROOKLYNN MAURICE on 11/09/221038 Last Action: Reviewed Bifidobacterium Infantis (Align) 10.5 Mg (10 Million Cell) Tab.chew, 10.5 MG PO HS, (Reported) Entered as Reported by: BROOKLYNN MAURICE on 11/09/221038 Last Action: Reviewed Budesonide (Budesonide) 0.5 Mg/2 Ml Ampul.neb, 0.5 MG IH Q12H, (Reported) Entered as Reported by: BROOKLYNN MAURICE on 12/11/221124 Last Action: Reviewed Cholecalciferol (Vitamin D3) (Vitamin D3) 25 Mcg (1000 Unit) Capsule, 25 MCG PO HS, (Reported) Entered as Reported by: BROOKLYNN MAURICE on 05/28/211030 Last Action: Reviewed Cholecalciferol (Vitamin D3) (Vitamin D3) 50 Mcg (2000 Unit) Capsule, 50 MCG PO DAILY, (Reported) Entered as Reported by: BROOKLYNN MAURICE on 11/09/221038 Last Action: Reviewed Cyanocobalamin (Vitamin B-12) (Vitamin B-12) 500 Mcg Tablet, 500 MCG PO HS, (Reported) Entered as Reported by: BROOKLYNN MAURICE on 05/28/211030 Last Action: Reviewed Diltiazem HCl (Diltiazem 24Hr ER) 180 Mg Cap.er.24h, 180 MG PO 2100, (Reported) Entered as Reported by: BROOKLYNN MAURICE on 12/11/221124 Last Action: Reviewed Flecainide Acetate (Flecainide Acetate) 100 Mg Tablet, 100 MG PO 0800,1600, (Reported) Entered as Reported by: BROOKLYNN MAURICE on 12/11/221124 Last Action: Reviewed Fluocinonide (Fluocinonide) 0.05 % Gel..gram., 1 APPLIC TOP DAILY PRN for RASH, (Reported) Entered as Reported by: BROOKLYNN MAURICE on 12/11/221124 Last Action: Reviewed Formoterol Fumarate (Formoterol Fumarate) 20 Mcg/2 Ml Vial.neb, 20 MCG IH Q12H, (Reported) Entered as Reported by: BROOKLYNN MAURICE on 12/11/221124 Last Action: Reviewed Levothyroxine Sodium (Synthroid) 75 Mcg Tablet, 75 MCG PO MO,WE,FR, (Reported) Entered as Reported by: BROOKLYNN MAURICE on 11/09/221038 Last Action: Reviewed Levothyroxine Sodium (Synthroid) 88 Mcg Tablet, 88 MCG PO CHAVEZ,TU,TH,SA, (Reported) Entered as Reported by: BROOKLYNN MAURICE on 11/09/221038 Last Action: Reviewed Polyethylene Glycol 3350 (Miralax) 17 Gram Powd.pack, 17 GM PO DAILY, (Reported) Entered as Reported by: BROOKLYNN MAURICE on 12/11/221124 Last Action: Reviewed Rivaroxaban (Xarelto Tablet) 15 Mg Tablet, 15 MG PO 1800, (Reported) Entered as Reported by: BROOKLYNN MAURICE on 11/09/221038 Last Action: Reviewed Sertraline HCl (Sertraline HCl) 25 Mg Tablet, 12.5 MG PO HS, (Reported) Entered as Reported by: BROOKLYNN MAURICE on 11/09/221038 Last Action: Reviewed Discontinued Medications Diltiazem HCl (Diltiazem 24Hr ER) 180 Mg Cap.er.24h, 180 MG PO DAILY Discontinued Reason: Duplicate Order Prescribed by: MELINA BEAUCHAMP on 11/17/22 0587 Last Action: Discontinued Fexofenadine HCl (Janette Allergy) 180 Mg Tablet, 180 MG PO DAILY, (Reported) Discontinued Reason: No Longer Taking Entered as Reported by: BROOKLYNN MAURICE on 11/09/221038 Last Action: Discontinued Flecainide Acetate (Flecainide Acetate) 100 Mg Tablet, 100 MG PO BID Discontinued Reason: Duplicate Order Prescribed by: MELINA BEAUCHAMP on 11/17/22 0554 Last Action: Discontinued Physical Exam-Cardiology Physical Exam Vital Signs/I&O 12/11/22 12/11/22 12/11/22 12/11/22 04:00 04:00 04:00 05:00 Temp 37.0 Pulse 93 80 Resp 16 18 B/P (MAP) 144/76 (98) 145/70 (95) Pulse Ox 94 92 94 O2 Delivery NIV Bilevel NIV Bilevel NIV Bilevel O2 Flow Rate 30.00 30.00 FiO2 30 12/11/22 12/11/22 12/11/22 12/11/22 06:00 06:36 07:00 07:00 Pulse 90 78 83 79 Resp 28 12 B/P (MAP) 142/85 (104) 130/69 (92) Pulse Ox 94 95 95 O2 Delivery NIV Bilevel NIV Bilevel O2 Flow Rate 30.00 30.00 30.00 12/11/22 12/11/22 12/11/22 12/11/22 07:48 08:00 08:05 08:17 Temp 36.8 Pulse 85 Resp 14 B/P (MAP) 117/51 (80) Pulse Ox 95 95 O2 Delivery NIV Bilevel Nasal Cannula Nasal Cannula O2 Flow Rate 30.00 5.00 3.00 12/11/22 12/11/22 12/11/22 12/11/22 09:00 10:00 10:32 10:48 Pulse 81 92 80 Resp 22 21 B/P (MAP) 114/58 (79) 114/52 (76) 109/64 Pulse Ox 94 96 94 O2 Delivery Nasal Cannula Nasal Cannula Nasal Cannula O2 Flow Rate 5.00 5.00 3.50 12/11/22 12/11/22 12/11/22 12/11/22 11:00 11:58 12:00 12:00 Temp 36.7 Pulse 90 93 Resp 36 15 B/P (MAP) 101/63 (66) 123/73 (82) Pulse Ox 95 95 94 O2 Delivery Nasal Cannula Nasal Cannula Nasal Cannula O2 Flow Rate 5.00 5.00 3.00 12/11/22 12/11/22 12/11/22 12/11/22 12:27 13:00 14:00 15:00 Pulse 91 102 98 87 Resp 14 B/P (MAP) 105/78 (87) 109/69 (96) 114/68 (91) Pulse Ox 93 94 94 O2 Delivery Nasal Cannula Nasal Cannula Nasal Cannula O2 Flow Rate 5.00 5.00 5.00 12/11/22 15:05 Pulse Ox 94 O2 Delivery Nasal Cannula O2 Flow Rate 3.50 12/11/22 00:00 Intake Total 450 ml Output Total 1950 ml Balance -1500 ml Capillary Refill : Less Than 3 Seconds Constitutional: AAO x 3, well-developed, well-nourished HEENT: PERRL, hearing is well preserved, oral hygience is good Neck: No carotid bruit; carotid pulses are 2 + bilaterally Respiratory: No accessory muscle use, No respiratory distress; other (diminished lower lobes bilat) Cardiovascular: irregularly irregular; No JVD; S1 and S2 Gastrointestinal: No tender; soft; No guarding; audible bowel sounds Neurologic/Psychiatric: other (moves all extremities) Skin: No rash on exposed areas, No ulcerations on exposed areas Data Review Labs Laboratory Tests 12/10/22 15:53: Blood Gas Puncture Site RIGHT RADIAL, Blood Gas Patient Temperature 37.0, Arterial Blood pH 7.38, Arterial Blood Partial Pressure CO2 51H, Arterial Blood Partial Pressure O2 77L, Arterial Blood HCO3 29H, Arterial Blood Total CO2 30.6, Arterial Blood Oxygen Saturation 95, Arterial Blood Base Excess 4.2H, Steven Test N/A, Blood Gas Ventilator Setting NO, Blood Gas Inspired Oxygen 30% 12/10/22 16:59: SARS-CoV-2 RNA (RT-PCR) Not Detected 12/11/22 04:20: White Blood Count 5.0, Red Blood Count 3.38L, Hemoglobin 10.0L, Hematocrit 30L, Mean Corpuscular Volume 89, Mean Corpuscular Hemoglobin 30, Mean Corpuscular Hemoglobin Concent 33, Red Cell Distribution Width 13.2, Platelet Count 273, Mean Platelet Volume 8.8L, Immature Granulocyte % (Auto) 1, Neutrophils (%) (Auto) 92H, Lymphocytes (%) (Auto) 6L, Monocytes (%) (Auto) 2, Eosinophils (%) (Auto) 0, Basophils (%) (Auto) 0, Neutrophils # (Auto) 4.6, Lymphocytes # (Auto) 0.3L, Monocytes # (Auto) 0.1, Eosinophils # (Auto) 0.0, Basophils # (Auto) 0.0, Immature Granulocyte # (Auto) 0.0, Sodium Level 133L, Potassium Level 3.5L, Chloride Level 97L, Carbon Dioxide Level 24, Anion Gap 12, Blood Urea Nitrogen 12, Creatinine 0.73, Estimat Glomerular Filtration Rate 82, BUN/Creatinine Ratio 16, Glucose Level 141H, Calcium Level 8.6, Corrected Calcium 9.2, Phosphorus Level 4.0, Magnesium Level 1.9, Total Bilirubin 0.9, Aspartate Amino Transf (AST/SGOT) 21, Alanine Aminotransferase (ALT/SGPT) 18, Alkaline Phosphatase 80, Total Protein 5.8L, Albumin 3.3 12/11/22 04:24: Blood Gas Puncture Site RR, Blood Gas Patient Temperature 36.4, Arterial Blood pH 7.45H, Arterial Blood Partial Pressure CO2 46H, Arterial Blood Partial Pressure O2 59L, Arterial Blood HCO3 32H, Arterial Blood Total CO2 33.2H, Arterial Blood Oxygen Saturation 94, Arterial Blood Base Excess 7.4H, Steven Test YES-POS, Blood Gas Ventilator Setting NO, Blood Gas Inspired Oxygen 30% Microbiology 12/10/22 MRSA Screen - Final, Complete MRSA not isolated 12/10/22 Blood Culture - Preliminary, Resulted No growth A/P-Cardiology Assessment/Admission Diagnosis Acute on chronic diastolic CHF - treat with diuretics ?Pneumonia - management per medical services SSS and PAF - a-fib with RVR on EKG of 12-10-22 - S/P ILR implant 03-01-[address] Garnica - continuing intermittent PAF with RVR on ILR - OAC with Xarelto - this is being followed by Dr. Miller who has advised continued medical management, recommended starting Flecainide or Amiodarone per last note in Jul 2022. - MPI of 09-22-2022 showed no evidence of ischemia or infarction. No regional wall motion abnormality. MPI 56% - ECG on 10-14-22: NSR with LBBB and PACs - Underwent cardioversion on 11/16/[address] Green - was started on Flecainide 100mg BID Hypothyroidism,treated with thyroid replacement therapy. Managed by PCP Hypertension, labile blood pressure Excepting higher blood pressure reading to avoid hypotensive episodes. Carotid art disease, history of s/p R CEA by Dr Adams on 05/26/21 at [place], [place] Mild bilat dz per u/s of 09-10-2021 Mitral Regurg: Echocardiogram of 12-04-[address] Garnica showed LVEF 55-65%. LA mildly dilated. Mod to severe MR. PASP 40-45 mmHg Echocardiogram of 09-02-20 showed LVEF 55-60%. Grade 1 diastolic dysfunction. Mild MR. AoV sclerosis with mild regurg. PASP 40-45 mmHg COPD with nocturnal hypoxemia Extobaccoism, quit smoking when she was in her 40's Mild pulmonary hypertension, PASP 40-45 mmHg per echo of 09-02-[address] Brown on 02-14-21 did not indicate sleep apnea - a-fib seen during the test Chronic, bilateral leg swelling, likely related to venous insuff Chronic scoliosis and degenerative cervical spinal disease (chronically stiff neck and shoulders) Discussion and Recomendations Acute on chronic diastolic CHF - treat with diuretics - Echocardiogram today A-fib with RVR - d/t failed Flecainide tx we will stop it and change to Amiodarone for rate control - we will load with IV - continue OAC with Xarelto ?Pneumonia - management per medical services Monitor lab closely Replace electrolytes as indicated Further recs will be based on her hospital course We would like to thank medical services for this consult TINA BERG MD FACP FAC CCDS Dec 11, 2022 15:51
[2022-12-11] MEDS ORDERED: RIVAROXABAN 15 MG TABLET (XARELTO) PO SCH (17:00)
[2022-12-11] MEDS: RIVAROXABAN 15 MG TABLET (XARELTO) PO SCH (18:14)
[2022-12-12] MEDS: CEFEPIME INJECTION 1,000 MG in NS (IVPB) 50 ML IV SCH ×3 (02:45→17:00)
[2022-12-12] MEDS: RT-ALBUTEROL/IPRATROPIUM 3 ML (DUONEB) VIAL INH SCH ×6 (03:00→22:10)
[2022-12-12] MEDS ORDERED: NS (IVPB) 0 ML ONE (03:04)
[2022-12-12] MEDS: ACETAMINOPHEN 325 MG TABLET PO PRN (03:20)
[2022-12-12 05:03] LABS: BASOPHILS % (AUTO) 0 % (0-10); EOSINOPHILS % (AUTO) 0 % (0-10); HEMATOCRIT 31 % (35-52); HEMOGLOBIN 10.4 g/dL (11.5-16.0); LYMPHOCYTES # (AUTO) 0.4 10^3/uL (1.0-4.0); LYMPHOCYTES % (AUTO) 2 % (12-44); MEAN CORPUSCULAR HEMOGLOBIN 30 pg (25-34); MEAN CORPUSCULAR HGB CONC 33 g/dL (32-36); MEAN CORPUSCULAR VOLUME 89 fL (80-99); MEAN PLATELET VOLUME 8.9 fL (9.0-12.2); MONOCYTES # (AUTO) 0.7 10^3/uL (0.0-1.0); MONOCYTES % (AUTO) 4 % (0-12); NEUTROPHILS # (AUTO) 17.2 10^3/uL (1.8-7.8); NEUTROPHILS % (AUTO) 93 % (42-75); PLATELET COUNT 329 10^3/uL (130-400); WHITE BLOOD COUNT 18.5 10^3/uL (4.3-11.0)
[2022-12-12 05:25] LABS: ALBUMIN 3.5 GM/DL (3.2-4.5); BILIRUBIN,TOTAL 0.8 MG/DL (0.1-1.0); CALCIUM 8.7 MG/DL (8.5-10.1); CREATININE SERUM 0.86 MG/DL (0.60-1.30); MAGNESIUM 2.2 MG/DL (1.6-2.4); PHOSPHORUS 3.6 MG/DL (2.3-4.7); POTASSIUM 3.7 MMOL/L (3.6-5.0); TOTAL PROTEIN 6.2 GM/DL (6.4-8.2)
[2022-12-12] MEDS: MAGNESIUM 1 GM/100 ML IVPB 100 ML IV SCH (05:44)
[2022-12-12] MEDS: POTASSIUM CL 10MEQ/50ML IVPB 50 ML IV SCH (05:44)
[2022-12-12] MEDS: KCL 20 MEQ TAB (K-DUR) PO SCH (05:44)
[2022-12-12] MEDS ORDERED: POTASSIUM BICARB 20 MEQ (EFFER-K) TABLET PO ONE (05:45)
[2022-12-12 06:41] VITALS: BP 156/121
--- NOTE | 2022-12-12 07:23 | Progress Note ---
Subjective Date Seen by a Provider: Dec 12, 2022 Time Seen by a Provider: 11:00 Subjective/Events-last exam Patient had a complicated night BiPAP will be required Reviewed meds and labs No pain is reported Shortness of breath is an issue Review of Systems General: Fatigue, Malaise Pulmonary: Dyspnea, Cough Focused Exam Lactate Level 12/10/22 15:35: Lactic Acid Level 1.05 Objective Exam Last Set of Vital Signs Vital Signs Date Time Temp Pulse Resp B/P (MAP) Pulse Ox O2 Delivery O2 Flow Rate FiO2 12/12/22 06:41 110 12 96 50.00 12/12/22 06:00 156/121 (133) Nasal Cannula 12/11/22 15:58 37.2 12/11/22 04:00 30 Capillary Refill : Less Than 3 Seconds I&O Intake and Output 12/11/22 23:59 Intake Total 2163 ml Output Total 1700 ml Balance 463 ml Intake Oral 1310 ml IV Total 853 ml Output Urine Total 1700 ml General: Alert, Oriented X3, Cooperative, No Acute Distress Lungs: Clear to Auscultation, Normal Air Movement Heart: Normal S1, Normal S2, No Murmurs, Other (Irregular irregular) Psych/Mental Status: Mental Status NL, Mood NL Results Lab Laboratory Tests 12/12/22 04:42: White Blood Count 18.5H, Red Blood Count 3.51L, Hemoglobin 10.4L, Hematocrit 31L , Mean Corpuscular Volume 89, Mean Corpuscular Hemoglobin 30, Mean Corpuscular Hemoglobin Concent 33, Red Cell Distribution Width 13.4, Platelet Count 329, Mean Platelet Volume 8.9L, Immature Granulocyte % (Auto) 1, Neutrophils (%) (Auto) 93H, Lymphocytes (%) (Auto) 2L, Monocytes (%) (Auto) 4, Eosinophils (%) (Auto) 0, Basophils (%) (Auto) 0, Neutrophils # (Auto) 17.2H, Lymphocytes # (Auto) 0.4L, Monocytes # (Auto) 0.7, Eosinophils # (Auto) 0.0, Basophils # (Auto) 0.0, Immature Granulocyte # (Auto) 0.1, Sodium Level 132L, Potassium Level 3.7, Chloride Level 97L, Carbon Dioxide Level 24, Anion Gap 11, Blood Urea Nitrogen 19H, Creatinine 0.86, Estimat Glomerular Filtration Rate 67, BUN/Creatinine Ratio 22, Glucose Level 134H, Calcium Level 8.7, Corrected Calcium 9.1, Phosphorus Level 3.6, Magnesium Level 2.2, Total Bilirubin 0.8, Aspartate Amino Transf (AST/SGOT) 20, Alanine Aminotransferase (ALT/SGPT) 20, Alkaline Phosphatase 77, Total Protein 6.2L, Albumin 3.5 Microbiology 12/10/22 MRSA Screen - Final, Complete MRSA not isolated 12/10/22 Blood Culture - Preliminary, Resulted No growth Assessment/Plan Assessment/Plan Assess & Plan/Chief Complaint Assessment: Acute hypoxic hypercapneic resp failure requiring biPAP Congestive heart failure myopathy HAP Atrial fibrillation s/p cardioversion 11/16/22 Oral anticoagulation Hypothyroidism Hypertension Falls Recent left leg pain due to fall with hematoma from oral anticoagulation Orthostasis with near syncope on 11/11/22 Left-sided sciatica Plan: Continue ICU care Diagnosis/Problems Diagnosis/Problems (1) Chronic heart failure with preserved ejection fraction (HFpEF) (2) Respiratory distress Status: Acute (3) Pulmonary hypertension (4) Mitral regurgitation (5) Primary hypertension (6) Atrial fibrillation status post cardioversion (7) Paroxysmal atrial fibrillation Clinical Quality Measures Admission Status Admission Dx Assessment: Acute hypoxic hypercapneic resp failure requiring biPAP Congestive heart failure myopathy HAP Atrial fibrillation s/p cardioversion 11/16/22 Oral anticoagulation Hypothyroidism Hypertension Falls Recent left leg pain due to fall with hematoma from oral anticoagulation Orthostasis with near syncope on 11/11/22 Left-sided sciatica ELVA BEAUCHAMP DO Dec 12, 2022 07:23
[2022-12-12] MEDS: FUROSEMIDE 40 MG/4 ML INJ (LASIX) IVP SCH (08:39)
--- NOTE | 2022-12-12 08:51 | Diagnostic Imaging Report ---
EXAMINATION: Chest 1 view HISTORY: Pneumonia COMPARISON: 12/11/2022 FINDINGS: There are worsening bilateral airspace opacities and increasing pleural effusions. No pneumothorax. There is worsening interstitial opacities, as well. Heart size is enlarged. Loop recorder is present. No pneumothorax. IMPRESSION: 1. Worsening bilateral interstitial and airspace opacities with increasing pleural effusions. Findings likely represent a combination of pulmonary edema and pneumonia. Dictated by: Dictated on workstation # [id number]
[2022-12-12 09:06] VITALS: BP 107/59
[2022-12-12] MEDS: SENNOSIDES 8.6 MG (SENOKOT) TAB PO SCH ×2 (09:35→21:36)
[2022-12-12] MEDS: DOCUSATE SODIUM 100 MG (COLACE) CAP PO SCH ×2 (09:35→21:36)
[2022-12-12] MEDS: VANCOMYCIN 1 GM/NS 250 ML IVPB IV SCH ×2 (11:23)
[2022-12-12] MEDS: AMIODARONE 200 MG (CORDARONE) TAB PO SCH ×2 (11:50→20:29)
--- NOTE | 2022-12-12 13:48 | Tele-ICU Progress Note ---
Subjective Date Seen by a Provider: Dec 12, 2022 Time Seen by a Provider: 13:48 Subjective/Events-last exam (Tele-ICU Physician , Progress Note ) Service provided via interactive audio and video telecommunications E-CARE system to a patient admitted to ICU bed in [facility]. Patient is seen today due to persistent need of ICU care Available chart/ vitals / labs / Images reviewed Video assessment done using teleICU camera, rest of exam as per RN Discussed with RN Events overnight : Afebrile hemodynamically stable Respiratory - 3L I/O = Drips: Pressors- no Hospital course: A/P A fib RVR ( chronic , s/p ILR , cardioversions -OAC with Xarelto - cardizem gtt off , amio will be done today Acute on chronic diastolic CHF - treat with diuretics Acute resp failure- CHF and AECOPD/ infection - on diuretics , steroids , abx - off NIPPV - on 3 L o2 now AECOPD ( nocturnal hypoxemia, PSG - neg for CONSTANZA 2020 - nebs , IV steroids - as per bedside MD LRTI/ Possibl;e PNA - vanco , cefepime Mild pulmonary hypertension,-PASP 40-45 mmHg Mild anemia - stable Mild hyponatremia - stable Lines : , (Central Line Necessity Reviewed) Ham: OG: Nutrition: Analgesia: Anxiety/ delirium VTE Prophylaxis: xarelto Stress Ulcer Prophylaxis: Plans in collaboration with bedside consultants and IM MDs. Discussed with RN to reach out if any questions or concerns Case and care daily discussed on multidisciplinary rounds ( RN, PharmD, Internal Grinding Machine Operator , Respiratory Therapy, drawer hardware worker ) A total of 15 minutes of critical care time was devoted to this patient today, required to treat and/or prevent further deterioration of critical care condition ( as above ) . I am remotely monitoring this patient from another state. I am unable to do the bedside exam, and history/physical and pertinent information is taken from other notes in the computer and bedside staff. Sepsis Event Evaluation Height, Weight, BMI Height: 5'3.50" Weight: 157lbs. 0.9oz. 71.907529yl; 25.19 BMI Method: Focused Exam Lactate Level 12/10/22 15:35: Lactic Acid Level 1.05 Exam Exam Patient acknowledged, consented, and participated in this virtual visit which w as conducted using real time audio/video Vital Signs Date Time Temp Pulse Resp B/P (MAP) Pulse Ox O2 Delivery O2 Flow Rate FiO2 12/12/22 13:00 89 26 128/89 (98) 89 Nasal Cannula 3.00 12/12/22 12:44 105 12/12/22 12:00 97 26 132/85 (99) 94 Nasal Cannula 3.00 12/12/22 11:30 36.6 12/12/22 11:27 94 High Flow N/C 3.00 12/12/22 11:00 95 25 91 Nasal Cannula 3.00 12/12/22 10:00 113 17 128/94 (107) 98 Nasal Cannula 5.00 12/12/22 09:06 70 16 97 50.00 12/12/22 09:00 114 24 107/59 (66) 98 Nasal Cannula 5.00 12/12/22 08:47 36.5 12/12/22 08:44 98 NIV Bilevel 50 12/12/22 08:00 76 26 135/95 (119) 97 Nasal Cannula 5.00 12/12/22 07:34 68 146/101 12/12/22 07:00 148 12/12/22 07:00 93 21 146/101 (113) 96 Nasal Cannula 5.00 12/12/22 06:41 110 12 96 50.00 12/12/22 06:00 98 25 156/121 (133) 90 Nasal Cannula 5.00 12/12/22 05:00 113 23 137/93 (108) 95 Nasal Cannula 5.00 12/12/22 04:00 93 Nasal Cannula 3.00 12/12/22 04:00 113 19 145/89 (107) 94 Nasal Cannula 5.00 12/12/22 03:00 104 19 139/89 (106) 95 Nasal Cannula 5.00 12/12/22 02:00 120 16 136/94 (108) 93 Nasal Cannula 5.00 12/12/22 01:00 106 19 127/80 (96) 95 Nasal Cannula 5.00 12/12/22 01:00 109 12/12/22 00:00 113 18 151/72 (98) 95 Nasal Cannula 5.00 12/11/22 23:59 94 Nasal Cannula 3.00 12/11/22 23:00 121 23 141/84 (103) 93 Nasal Cannula 5.00 12/11/22 22:22 93 Nasal Cannula 3.50 12/11/22 22:00 113 23 118/105 (109) 96 Nasal Cannula 5.00 12/11/22 21:00 107 23 129/95 (106) 93 Nasal Cannula 5.00 12/11/22 20:00 101 21 138/87 (104) 96 Nasal Cannula 5.00 12/11/22 20:00 93 Nasal Cannula 3.00 12/11/22 19:00 123 12/11/22 19:00 122 31 123/69 (87) 95 Nasal Cannula 5.00 12/11/22 18:21 91 Nasal Cannula 3.50 12/11/22 18:00 93 34 111/74 (86) 94 Nasal Cannula 5.00 12/11/22 17:00 91 11 139/77 (97) 94 Nasal Cannula 5.00 12/11/22 16:00 113 18 115/67 (76) 94 Nasal Cannula 5.00 12/11/22 16:00 94 Nasal Cannula 3.00 12/11/22 15:58 37.2 12/11/22 15:05 94 Nasal Cannula 3.50 12/11/22 15:00 87 14 114/68 (91) 94 Nasal Cannula 5.00 12/11/22 14:00 98 109/69 (96) 94 Nasal Cannula 5.00 I & O 12/12/22 07:00 Intake Total 2453 ml Output Total 1525 ml Balance 928 ml Height & Weight Height: 5'3.50" Weight: 157lbs. 0.9oz. 71.513670mu; 25.19 BMI Method: General Appearance: No Apparent Distress, WD/WN HEENT: PERRL/EOMI, Moist Mucous Membranes Neck: Supple Respiratory: Chest Non Tender, No Accessory Muscle Use, Decreased Breath Sounds (bases bilaterally) Cardiovascular: Normal Peripheral Pulses, Irregularly Irregular, Tachycardia Capillary Refill: Less Than 3 Seconds Gastrointestinal: normal bowel sounds, non tender, soft Extremity: Pedal Edema, Swelling Neurologic/Psychiatric: Alert, Oriented x3, Normal Mood/Affect Skin: Normal Color, Warm/Dry Results Lab Laboratory Tests 12/10/22 15:35 12/11/22 04:20 12/12/22 04:42 Assessment/Plan Assessment/Plan 1 TOMA CORREIA MD Dec 12, 2022 13:48
--- NOTE | 2022-12-12 16:36 | Progress Note - Cardiology ---
Cardiology SOAP Progress Note Subjective: No cp or palp or syncope Shortness of breath improving No n/v/d No focal weakness Gen weakness present Objective: I&O/Vital Signs 12/12/22 12/12/22 12/12/22 12/12/22 05:00 06:00 06:41 07:00 Pulse 113 98 110 93 Resp 23 25 12 21 B/P (MAP) 137/93 (108) 156/121 (133) 146/101 (113) Pulse Ox 95 90 96 96 O2 Delivery Nasal Cannula Nasal Cannula Nasal Cannula O2 Flow Rate 5.00 5.00 50.00 5.00 12/12/22 12/12/22 12/12/22 12/12/22 07:00 07:34 08:00 08:44 Pulse 148 68 76 Resp 26 B/P (MAP) 146/101 135/95 (119) Pulse Ox 97 98 O2 Delivery Nasal Cannula NIV Bilevel O2 Flow Rate 5.00 FiO2 50 12/12/22 12/12/22 12/12/22 12/12/22 08:47 09:00 09:06 10:00 Temp 36.5 Pulse 114 70 113 Resp 24 16 17 B/P (MAP) 107/59 (66) 128/94 (107) Pulse Ox 98 97 98 O2 Delivery Nasal Cannula Nasal Cannula O2 Flow Rate 5.00 50.00 5.00 12/12/22 12/12/22 12/12/22 12/12/22 11:00 11:27 11:30 12:00 Temp 36.6 Pulse 95 97 Resp 25 26 B/P (MAP) 132/85 (99) Pulse Ox 91 94 94 O2 Delivery Nasal Cannula High Flow N/C Nasal Cannula O2 Flow Rate 3.00 3.00 3.00 12/12/22 12/12/22 12/12/22 12/12/22 12:44 13:00 14:00 15:00 Pulse 105 89 103 104 Resp 30 12 B/P (MAP) 128/89 (98) 115/69 (87) 102/77 (87) Pulse Ox 89 94 95 O2 Delivery Nasal Cannula Nasal Cannula Nasal Cannula O2 Flow Rate 3.00 3.00 3.00 12/12/22 12/12/22 12/12/22 15:19 15:30 16:00 Pulse 112 Resp 36 B/P (MAP) 121/74 (90) Pulse Ox 93 95 93 O2 Delivery Nasal Cannula High Flow N/C Nasal Cannula O2 Flow Rate 3.50 3.00 3.00 12/12/22 00:00 Intake Total 940 ml Output Total 625 ml Balance 315 ml Weight (Pounds): 157 Weight (Ounces): 0.9 Weight (Calculated Kilograms): 71.720672 Constitutional: AAO x 3, well-developed, well-nourished Respiratory: No accessory muscle use, No respiratory distress; other (diminished lower lobes bilat) Cardiovascular: irregularly irregular; No JVD; S1 and S2 Gastrointestional: No tender; soft; No guarding; audible bowel sounds Extremities: No swelling, No clubbing, No cyanosis Neurologic/Psychiatric: other (moves all extremities) Skin: No rash on exposed areas, No ulcerations on exposed areas Results/Procedures: Labs Laboratory Tests 12/12/22 04:42: White Blood Count 18.5H, Red Blood Count 3.51L, Hemoglobin 10.4L, Hematocrit 31L , Mean Corpuscular Volume 89, Mean Corpuscular Hemoglobin 30, Mean Corpuscular Hemoglobin Concent 33, Red Cell Distribution Width 13.4, Platelet Count 329, Mean Platelet Volume 8.9L, Immature Granulocyte % (Auto) 1, Neutrophils (%) (Auto) 93H, Lymphocytes (%) (Auto) 2L, Monocytes (%) (Auto) 4, Eosinophils (%) (Auto) 0, Basophils (%) (Auto) 0, Neutrophils # (Auto) 17.2H, Lymphocytes # (Auto) 0.4L, Monocytes # (Auto) 0.7, Eosinophils # (Auto) 0.0, Basophils # (Auto) 0.0, Immature Granulocyte # (Auto) 0.1, Sodium Level 132L, Potassium Level 3.7, Chloride Level 97L, Carbon Dioxide Level 24, Anion Gap 11, Blood Urea Nitrogen 19H, Creatinine 0.86, Estimat Glomerular Filtration Rate 67, BUN/Creatinine Ratio 22, Glucose Level 134H, Calcium Level 8.7, Corrected Calcium 9.1, Phosphorus Level 3.6, Magnesium Level 2.2, Total Bilirubin 0.8, Aspartate Amino Transf (AST/SGOT) 20, Alanine Aminotransferase (ALT/SGPT) 20, Alkaline Phosphatase 77, Total Protein 6.2L, Albumin 3.5 Microbiology 12/10/22 MRSA Screen - Final, Complete MRSA not isolated 12/10/22 Blood Culture - Preliminary, Resulted No growth Laboratory Tests 12/11/22 04:20 12/12/22 04:42 A/P: Assessment: Acute on chronic diastolic CHF ?Pneumonia - management per medical services SSS and PAF - S/P ILR implant 03-01-[address] Garnica that showed continuing intermittent PAF with RVR on ILR - OAC with Xarelto - EP consult with Dr. Miller who has advised continued medical management, recommended starting Flecainide or Amiodarone per last note in Jul 2022. - MPI of 09-22-2022 showed no evidence of ischemia or infarction. No regional wall motion abnormality. MPI 56% - ECG on 10-14-22: NSR with LBBB and PACs - Recurrent A Fib for which she underwent cardioversion on 11/16/[address] Green - was started on Flecainide 100mg BID - a-fib with RVR on EKG of 12-10-22. Flecainide d/c'd, amiodarone initiated on 12-11-22 Hypothyroidism,treated with thyroid replacement therapy. Managed by PCP Hypertension, labile blood pressure Carotid art disease, history of s/p R CEA by Dr Adams on 05/26/21 at [place], [place] Mild bilat dz per u/s of 09-10-2021 Mitral regurg and mild pulm htn - Echocardiogram of 12-04-[address] Garnica showed LVEF 55-65%. LA mildly dilated. Mod to severe MR. PASP 40-45 mmHg - Echocardiogram of 09-02-20 showed LVEF 55-60%. Grade 1 diastolic dysfunction. Mild MR. AoV sclerosis with mild regurg. PASP 40-45 mmHg - sleep studies by Dr. Brown on 02-14-21 did not indicate sleep apnea - a-fib seen during the test - Echo of 12-11-22: LVEF 55-60%, mod to sev enlargement of LA, mild enlargement of RA, mild to mod MR, triv AI, L pleural eff, PASP 45-50 mmHg COPD with nocturnal hypoxemia Quit smoking when she was in her 40's Chronic, bilateral leg swelling, likely related to venous insuff Chronic scoliosis and degenerative cervical spinal disease (chronically stiff neck and shoulders) Plan: * Diuretics as needed and as tolerated * Continue amiodarone. Change to oral * Another attempt at electrical cardioversion can be considered, but she does not want it yet * Continue chronic DOAC therapy * Monitor labs TINA BERG MD [facility] CCDS Dec 12, 2022 16:36
[2022-12-12] MEDS: RIVAROXABAN 15 MG TABLET (XARELTO) PO SCH (17:00)
[2022-12-13] MEDS: CEFEPIME INJECTION 1,000 MG in NS (IVPB) 50 ML IV SCH ×3 (02:00→17:40)
[2022-12-13] MEDS: RT-ALBUTEROL/IPRATROPIUM 3 ML (DUONEB) VIAL INH SCH ×6 (02:33→21:17)
[2022-12-13 05:16] LABS: BASOPHILS % (AUTO) 0 % (0-10); EOSINOPHILS # (AUTO) 0.2 10^3/uL (0.0-0.3); EOSINOPHILS % (AUTO) 1 % (0-10); HEMATOCRIT 35 % (35-52); HEMOGLOBIN 11.3 g/dL (11.5-16.0); LYMPHOCYTES # (AUTO) 0.4 10^3/uL (1.0-4.0); LYMPHOCYTES % (AUTO) 3 % (12-44); MEAN CORPUSCULAR HEMOGLOBIN 29 pg (25-34); MEAN CORPUSCULAR HGB CONC 33 g/dL (32-36); MEAN CORPUSCULAR VOLUME 90 fL (80-99); MONOCYTES # (AUTO) 0.7 10^3/uL (0.0-1.0); MONOCYTES % (AUTO) 4 % (0-12); NEUTROPHILS # (AUTO) 16.1 10^3/uL (1.8-7.8); NEUTROPHILS % (AUTO) 92 % (42-75); PLATELET COUNT 338 10^3/uL (130-400); WHITE BLOOD COUNT 17.5 10^3/uL (4.3-11.0)
[2022-12-13 05:31] LABS: ALBUMIN 3.5 GM/DL (3.2-4.5); BILIRUBIN,TOTAL 0.7 MG/DL (0.1-1.0); CALCIUM 8.9 MG/DL (8.5-10.1); CREATININE SERUM 0.85 MG/DL (0.60-1.30); MAGNESIUM 2.2 MG/DL (1.6-2.4); PHOSPHORUS 3.9 MG/DL (2.3-4.7); POTASSIUM 3.7 MMOL/L (3.6-5.0); TOTAL PROTEIN 6.4 GM/DL (6.4-8.2)
[2022-12-13] MEDS: POTASSIUM CL 10MEQ/50ML IVPB 50 ML IV SCH (06:22)
[2022-12-13] MEDS: MAGNESIUM 1 GM/100 ML IVPB 100 ML IV SCH (06:22)
[2022-12-13] MEDS: KCL 20 MEQ TAB (K-DUR) PO SCH (06:23)
[2022-12-13] MEDS ORDERED: RT-BUDESONIDE NEBS 0.5 MG/2ML (PULMICORT) AMP IH SCH (07:00)
--- NOTE | 2022-12-13 07:18 | Progress Note ---
Subjective Date Seen by a Provider: Dec 13, 2022 Time Seen by a Provider: 11:00 Subjective/Events-last exam Patient doing a little better today Less short of breath No pain is reported Cardioversion tomorrow Pneumonia treatment tolerated Review of Systems General: Fatigue, Malaise Focused Exam Lactate Level 12/10/22 15:35: Lactic Acid Level 1.05 Objective Exam Last Set of Vital Signs Vital Signs Date Time Temp Pulse Resp B/P (MAP) Pulse Ox O2 Delivery O2 Flow Rate FiO2 12/13/22 06:46 97 High Flow N/C 3.50 12/13/22 06:00 98 10 146/83 (104) 12/13/22 04:00 36.2 12/12/22 08:44 50 Capillary Refill : Less Than 3 Seconds I&O Intake and Output 12/13/22 00:00 Intake Total 1610 ml Output Total 2500 ml Balance -890 ml Intake Oral 1310 ml IV Total 300 ml Output Urine Total 2500 ml General: Alert, Oriented X3, Cooperative, No Acute Distress Lungs: Normal Air Movement, Other (Crackles) Heart: Other ( irregular and tachycardic) Psych/Mental Status: Mental Status NL, Mood NL Results Lab Laboratory Tests 12/13/22 04:44: White Blood Count 17.5H, Red Blood Count 3.86, Hemoglobin 11.3L, Hematocrit 35, Mean Corpuscular Volume 90, Mean Corpuscular Hemoglobin 29, Mean Corpuscular Hemoglobin Concent 33, Red Cell Distribution Width 13.7, Platelet Count 338, Mean Platelet Volume 9.0, Immature Granulocyte % (Auto) 1, Neutrophils (%) (Auto) 92H, Lymphocytes (%) (Auto) 3L, Monocytes (%) (Auto) 4, Eosinophils (%) (Auto) 1, Basophils (%) (Auto) 0, Neutrophils # (Auto) 16.1H, Lymphocytes # (Auto) 0.4L, Monocytes # (Auto) 0.7, Eosinophils # (Auto) 0.2, Basophils # (Auto) 0.0, Immature Granulocyte # (Auto) 0.1, Sodium Level 135, Potassium Level 3.7, Chloride Level 97L, Carbon Dioxide Level 25, Anion Gap 13, Blood Urea Nitrogen 22H, Creatinine 0.85, Estimat Glomerular Filtration Rate 68, BUN/Creatinine Ratio 26, Glucose Level 116H, Calcium Level 8.9, Corrected Calcium 9.3, Phosphorus Level 3.9, Magnesium Level 2.2, Total Bilirubin 0.7, Aspartate Amino Transf (AST/SGOT) 23, Alanine Aminotransferase (ALT/SGPT) 21, Alkaline Phosphatase 81, Total Protein 6.4, Albumin 3.5 Microbiology 12/10/22 MRSA Screen - Final, Complete MRSA not isolated 12/10/22 Blood Culture - Preliminary, Resulted No growth Assessment/Plan Assessment/Plan Assess & Plan/Chief Complaint Assessment: Acute hypoxic hypercapneic resp failure requiring biPAP Congestive heart failure myopathy HAP Atrial fibrillation s/p cardioversion 11/16/22 Oral anticoagulation Hypothyroidism Hypertension Falls Recent left leg pain due to fall with hematoma from oral anticoagulation Orthostasis with near syncope on 11/11/22 Left-sided sciatica Plan: Continue ICU care Cardioversion tomorrow Diagnosis/Problems Diagnosis/Problems (1) Chronic heart failure with preserved ejection fraction (HFpEF) (2) Respiratory distress Status: Acute (3) Pulmonary hypertension (4) Mitral regurgitation (5) Primary hypertension (6) Atrial fibrillation status post cardioversion (7) Paroxysmal atrial fibrillation Clinical Quality Measures Admission Status Admission Dx Assessment: Acute hypoxic hypercapneic resp failure requiring biPAP Congestive heart failure myopathy HAP Atrial fibrillation s/p cardioversion 11/16/22 Oral anticoagulation Hypothyroidism Hypertension Falls Recent left leg pain due to fall with hematoma from oral anticoagulation Orthostasis with near syncope on 11/11/22 Left-sided sciatica ELVA BEAUCHAMP DO Dec 13, 2022 07:18
[2022-12-13] MEDS: LEVOTHYROXINE 88 MCG (LEVOTHORID) TAB PO SCH (07:26)
[2022-12-13] MEDS: RT-BUDESONIDE NEBS 0.5 MG/2ML (PULMICORT) AMP IH SCH ×2 (07:32→21:17)
--- NOTE | 2022-12-13 08:06 | Tele-ICU Progress Note ---
Progress Note video rounds completed. Tele-ICU Physician , Progress Note ) Service provided via interactive audio and video telecommunications E-CARE system to a patient admitted to ICU bed in [facility]. Patient is seen today due to persistent need of ICU care Available chart/ vitals / labs / Images reviewed Video assessment done using teleICU camera, rest of exam as per RN Discussed with RN Events overnight : Afebrile lying bed comfortable On supplemental O2 HR: a fib, irregularly , irregular vent response 100-130 Hospital course: A/P A fib RVR ( chronic , s/p ILR , cardioversions -OAC with Xarelto - on PO amiodarone now Acute on chronic diastolic CHF - followed by cardiology Acute resp failure- CHF and AECOPD/ infection - on diuretics , steroids , abx - off NIPPV - on 3 L o2 now AECOPD ( nocturnal hypoxemia, PSG - neg for CONSTANZA 2020 - nebs , IV steroids - as per bedside MD LRTI/ Possibl;e PNA - vanco , cefepime Mild pulmonary hypertension,-PASP 40-45 mmHg Mild anemia - stable Mild hyponatremia - stable VTE Prophylaxis: xarelto for a fib Plans: as per cardiology may need digoxin or beta ramesh added I am remotely monitoring this patient from another state. I am unable to do the bedside exam, and history/physical and pertinent information is taken from other notes in the computer and bedside staff. Sepsis Event Evaluation Height, Weight, BMI Height: 5'3.50" Weight: 157lbs. 0.9oz. 71.797855rk; 25.19 BMI Method: Focused Exam Lactate Level 12/10/22 15:35: Lactic Acid Level 1.05 Exam Exam Patient acknowledged, consented, and participated in this virtual visit which was conducted using real time audio/video Vital Signs Date Time Temp Pulse Resp B/P (MAP) Pulse Ox O2 Delivery O2 Flow Rate FiO2 12/12/22 13:00 89 26 128/89 (98) 89 Nasal Cannula 3.00 12/12/22 12:44 105 12/12/22 12:00 97 26 132/85 (99) 94 Nasal Cannula 3.00 12/12/22 11:30 36.6 12/12/22 11:27 94 High Flow N/C 3.00 12/12/22 11:00 95 25 91 Nasal Cannula 3.00 12/12/22 10:00 113 17 128/94 (107) 98 Nasal Cannula 5.00 12/12/22 09:06 70 16 97 50.00 12/12/22 09:00 114 24 107/59 (66) 98 Nasal Cannula 5.00 12/12/22 08:47 36.5 12/12/22 08:44 98 NIV Bilevel 50 12/12/22 08:00 76 26 135/95 (119) 97 Nasal Cannula 5.00 12/12/22 07:34 68 146/101 12/12/22 07:00 148 12/12/22 07:00 93 21 146/101 (113) 96 Nasal Cannula 5.00 12/12/22 06:41 110 12 96 50.00 12/12/22 06:00 98 25 156/121 (133) 90 Nasal Cannula 5.00 12/12/22 05:00 113 23 137/93 (108) 95 Nasal Cannula 5.00 12/12/22 04:00 93 Nasal Cannula 3.00 12/12/22 04:00 113 19 145/89 (107) 94 Nasal Cannula 5.00 12/12/22 03:00 104 19 139/89 (106) 95 Nasal Cannula 5.00 12/12/22 02:00 120 16 136/94 (108) 93 Nasal Cannula 5.00 12/12/22 01:00 106 19 127/80 (96) 95 Nasal Cannula 5.00 12/12/22 01:00 109 12/12/22 00:00 113 18 151/72 (98) 95 Nasal Cannula 5.00 12/11/22 23:59 94 Nasal Cannula 3.00 12/11/22 23:00 121 23 141/84 (103) 93 Nasal Cannula 5.00 12/11/22 22:22 93 Nasal Cannula 3.50 12/11/22 22:00 113 23 118/105 (109) 96 Nasal Cannula 5.00 12/11/22 21:00 107 23 129/95 (106) 93 Nasal Cannula 5.00 12/11/22 20:00 101 21 138/87 (104) 96 Nasal Cannula 5.00 12/11/22 20:00 93 Nasal Cannula 3.00 12/11/22 19:00 123 12/11/22 19:00 122 31 123/69 (87) 95 Nasal Cannula 5.00 12/11/22 18:21 91 Nasal Cannula 3.50 12/11/22 18:00 93 34 111/74 (86) 94 Nasal Cannula 5.00 12/11/22 17:00 91 11 139/77 (97) 94 Nasal Cannula 5.00 12/11/22 16:00 113 18 115/67 (76) 94 Nasal Cannula 5.00 12/11/22 16:00 94 Nasal Cannula 3.00 12/11/22 15:58 37.2 12/11/22 15:05 94 Nasal Cannula 3.50 12/11/22 15:00 87 14 114/68 (91) 94 Nasal Cannula 5.00 12/11/22 14:00 98 109/69 (96) 94 Nasal Cannula 5.00 I & O 12/12/22 07:00 Intake Total 2453 ml Output Total 1525 ml Balance 928 ml Height & Weight Height: 5'3.50" Weight: 157lbs. 0.9oz. 71.714043dz; 25.19 BMI Method: General Appearance: No Apparent Distress, WD/WN HEENT: PERRL/EOMI, Moist Mucous Membranes Neck: Supple Respiratory: Chest Non Tender, No Accessory Muscle Use, Decreased Breath Sounds (bases bilaterally) Cardiovascular: Normal Peripheral Pulses, Irregularly Irregular, Tachycardia Capillary Refill: Less Than 3 Seconds Gastrointestinal: normal bowel sounds, non tender, soft Extremity: Pedal Edema, Swelling Neurologic/Psychiatric: Alert, Oriented x3, Normal Mood/Affect Skin: Normal Color, Warm/Dry ResulTs Focused Exam Lactate Level 12/10/22 15:35: Lactic Acid Level 1.05 Height, Weight, BMI Height: 5'3.50" Weight: 157lbs. 0.9oz. 71.912470fu; 25.19 BMI Method: Labs Laboratory Tests 12/13/22 04:44 Results Results/Procedures Labs Laboratory Tests 12/12/22 04:42 12/13/22 04:44 Patient resulted labs reviewed. Results Labs Labs Laboratory Tests 12/13/22 04:44: White Blood Count 17.5H, Red Blood Count 3.86, Hemoglobin 11.3L, Hematocrit 35, Mean Corpuscular Volume 90, Mean Corpuscular Hemoglobin 29, Mean Corpuscular Hemoglobin Concent 33, Red Cell Distribution Width 13.7, Platelet Count 338, Mean Platelet Volume 9.0, Immature Granulocyte % (Auto) 1, Neutrophils (%) (Auto) 92H, Lymphocytes (%) (Auto) 3L, Monocytes (%) (Auto) 4, Eosinophils (%) (Auto) 1, Basophils (%) (Auto) 0, Neutrophils # (Auto) 16.1H, Lymphocytes # (Auto) 0.4L, Monocytes # (Auto) 0.7, Eosinophils # (Auto) 0.2, Basophils # (Auto) 0.0, Immature Granulocyte # (Auto) 0.1, Sodium Level 135, Potassium Level 3.7, Chloride Level 97L, Carbon Dioxide Level 25, Anion Gap 13, Blood Urea Nitrogen 22H, Creatinine 0.85, Estimat Glomerular Filtration Rate 68, BUN/Creatinine Ratio 26, Glucose Level 116H, Calcium Level 8.9, Corrected Calcium 9.3, Phosphorus Level 3.9, Magnesium Level 2.2, Total Bilirubin 0.7, Aspartate Amino Transf (AST/SGOT) 23, Alanine Aminotransferase (ALT/SGPT) 21, Alkaline Phosphatase 81, Total Protein 6.4, Albumin 3.5 Microbiology 12/10/22 MRSA Screen - Final, Complete MRSA not isolated 12/10/22 Blood Culture - Preliminary, Resulted No growth REINALDO WEBSTER MD Dec 13, 2022 08:06
[2022-12-13] MEDS: CYANOCOBALAMIN 1,000 MCG (VITAMIN B-12) TABLET PO SCH (08:18)
[2022-12-13] MEDS: DOCUSATE SODIUM 100 MG (COLACE) CAP PO SCH ×2 (08:18→21:06)
[2022-12-13] MEDS: AMIODARONE 200 MG (CORDARONE) TAB PO SCH ×2 (08:18→21:06)
[2022-12-13] MEDS: SENNOSIDES 8.6 MG (SENOKOT) TAB PO SCH ×2 (08:18→21:05)
[2022-12-13] MEDS: ACETAMINOPHEN 325 MG TABLET PO PRN ×2 (08:19→22:52)
[2022-12-13] MEDS: FUROSEMIDE 40 MG/4 ML INJ (LASIX) IVP SCH (08:19)
[2022-12-13] MEDS: polyethylene glycoL POWDER 17 GM (MIRALAX) PACK PO SCH (08:25)
[2022-12-13] MEDS ORDERED: KCL 20 MEQ TAB (K-DUR) PO ONE (09:00)
--- NOTE | 2022-12-13 10:20 | Diagnostic Imaging Report ---
EXAMINATION: Chest radiograph, portable AP view. DATE: 12/13/2022 7:27 AM INDICATION: 82-year-old female, shortness of breath, pneumonia. COMPARISON: December 12, 2022. FINDINGS: Heart size and mediastinal contours are unchanged. There is no identified pneumothorax. There is multifocal bilateral lung consolidation with probable bilateral pleural effusions. This appears unchanged. IMPRESSION: 1. Unchanged nonspecific multifocal bilateral lung consolidation and bilateral pleural effusions. Dictated by: Dictated on workstation # [id number]
[2022-12-13 13:45] VITALS: BP 122/78
--- NOTE | 2022-12-13 13:51 | Progress Note - Cardiology ---
Cardiology SOAP Progress Note Subjective: Gen weakness and malaise Shortness of breath better but not resolved No cp or palp or syncope No n/v/d Objective: I&O/Vital Signs 12/13/22 12/13/22 12/13/22 12/13/22 02:00 02:34 03:00 04:00 Pulse 109 105 Resp 18 14 B/P (MAP) 135/102 (113) 144/85 (104) Pulse Ox 94 95 94 95 O2 Delivery Nasal Cannula Nasal Cannula Nasal Cannula High Flow N/C O2 Flow Rate 3.00 3.50 3.00 3.00 12/13/22 12/13/22 12/13/22 12/13/22 04:00 04:00 05:00 06:00 Temp 36.2 Pulse 109 113 98 Resp 24 18 10 B/P (MAP) 124/100 (108) 146/92 (110) 146/83 (104) Pulse Ox 95 93 95 O2 Delivery Nasal Cannula Nasal Cannula Nasal Cannula O2 Flow Rate 3.00 3.00 3.00 12/13/22 12/13/22 12/13/22 12/13/22 06:46 07:00 07:00 07:31 Pulse 108 113 B/P (MAP) 139/88 (110) Pulse Ox 97 94 93 O2 Delivery High Flow N/C Nasal Cannula High Flow N/C O2 Flow Rate 3.50 3.50 3.00 12/13/22 12/13/22 12/13/22 12/13/22 07:32 07:52 08:00 09:00 Temp 36.7 Pulse 109 125 Resp 22 B/P (MAP) 140/91 (98) 155/102 (125) Pulse Ox 93 92 92 O2 Delivery High Flow N/C Nasal Cannula Nasal Cannula O2 Flow Rate 3.00 3.50 3.50 12/13/22 12/13/22 12/13/22 12/13/22 10:00 10:32 11:00 11:45 Temp 36.0 Pulse 113 116 Resp 22 18 B/P (MAP) 111/69 (81) 121/73 (84) Pulse Ox 95 93 93 O2 Delivery Nasal Cannula High Flow N/C Nasal Cannula O2 Flow Rate 3.50 3.00 3.50 12/13/22 12/13/22 12/13/22 12/13/22 11:57 12:00 12:48 13:00 Pulse 121 127 111 Resp 16 29 B/P (MAP) 134/88 (106) 122/78 (99) Pulse Ox 95 92 95 O2 Delivery High Flow N/C Nasal Cannula Nasal Cannula O2 Flow Rate 3.00 3.50 3.50 12/13/22 00:00 Intake Total 1050 ml Output Total 1450 ml Balance -400 ml Weight (Pounds): 157 Weight (Ounces): 0.9 Weight (Calculated Kilograms): 71.997491 Constitutional: AAO x 3, well-developed, well-nourished Respiratory: No accessory muscle use, No respiratory distress; other (diminished lower lobes bilat) Cardiovascular: irregularly irregular; No JVD; S1 and S2 Gastrointestional: No tender; soft; No guarding; audible bowel sounds Extremities: No swelling, No clubbing, No cyanosis Neurologic/Psychiatric: other (moves all extremities) Skin: No rash on exposed areas, No ulcerations on exposed areas Results/Procedures: Labs Laboratory Tests 12/13/22 04:44: White Blood Count 17.5H, Red Blood Count 3.86, Hemoglobin 11.3L, Hematocrit 35, Mean Corpuscular Volume 90, Mean Corpuscular Hemoglobin 29, Mean Corpuscular Hemoglobin Concent 33, Red Cell Distribution Width 13.7, Platelet Count 338, Mean Platelet Volume 9.0, Immature Granulocyte % (Auto) 1, Neutrophils (%) (Auto) 92H, Lymphocytes (%) (Auto) 3L, Monocytes (%) (Auto) 4, Eosinophils (%) (Auto) 1, Basophils (%) (Auto) 0, Neutrophils # (Auto) 16.1H, Lymphocytes # (Auto) 0.4L, Monocytes # (Auto) 0.7, Eosinophils # (Auto) 0.2, Basophils # (Auto) 0.0, Immature Granulocyte # (Auto) 0.1, Sodium Level 135, Potassium Level 3.7, Chloride Level 97L, Carbon Dioxide Level 25, Anion Gap 13, Blood Urea Nitrogen 22H, Creatinine 0.85, Estimat Glomerular Filtration Rate 68, BUN/Creatinine Ratio 26, Glucose Level 116H, Calcium Level 8.9, Corrected Calcium 9.3, Phosphorus Level 3.9, Magnesium Level 2.2, Total Bilirubin 0.7, Aspartate Amino Transf (AST/SGOT) 23, Alanine Aminotransferase (ALT/SGPT) 21, Alkaline Phosphatase 81, Total Protein 6.4, Albumin 3.5 Microbiology 12/10/22 MRSA Screen - Final, Complete MRSA not isolated 12/10/22 Blood Culture - Preliminary, Resulted No growth A/P: Assessment: Acute on chronic diastolic CHF ?Pneumonia - management per medical services SSS and PAF - S/P ILR implant 03-01-[address] Garnica that showed continuing intermittent PAF with RVR on ILR - OAC with Xarelto - EP consult with Dr. Miller who has advised continued medical management, recommended starting Flecainide or Amiodarone per last note in Jul 2022. - MPI of 09-22-2022 showed no evidence of ischemia or infarction. No regional wall motion abnormality. MPI 56% - ECG on 10-14-22: NSR with LBBB and PACs - Recurrent A Fib for which she underwent cardioversion on 11/16/[address] Green - was started on Flecainide 100mg BID - a-fib with RVR on EKG of 12-10-22. Flecainide d/c'd, amiodarone initiated on 12-11-22 Hypothyroidism,treated with thyroid replacement therapy. Managed by PCP Hypertension, labile blood pressure Carotid art disease, history of s/p R CEA by Dr Adams on 05/26/21 at [place], [place] Mild bilat dz per u/s of 09-10-2021 Mitral regurg and mild pulm htn - Echocardiogram of 12-04-[address] Garnica showed LVEF 55-65%. LA mildly dilated. Mod to severe MR. PASP 40-45 mmHg - Echocardiogram of 09-02-20 showed LVEF 55-60%. Grade 1 diastolic dysfunction. Mild MR. AoV sclerosis with mild regurg. PASP 40-45 mmHg - sleep studies by Dr. Brown on 02-14-21 did not indicate sleep apnea - a-fib seen during the test - Echo of 12-11-22: LVEF 55-60%, mod to sev enlargement of LA, mild enlargement of RA, mild to mod MR, triv AI, L pleural eff, PASP 45-50 mmHg COPD with nocturnal hypoxemia Quit smoking when she was in her 40's Chronic, bilateral leg swelling, likely related to venous insuff Chronic scoliosis and degenerative cervical spinal disease (chronically stiff neck and shoulders) Plan: * Another attempt at electrical cardioversion planned for tomorrow. Has been on uninterrupted oral anticoag since uneventful elec CV of 11/16/22 * Continue chronic DOAC therapy * Monitor labs TINA BERG MD FACP [facility] CCDS Dec 13, 2022 13:51
[2022-12-13] MEDS: RIVAROXABAN 15 MG TABLET (XARELTO) PO SCH (17:39)
[2022-12-13] MEDS: SERTRALINE 50 MG (ZOLOFT) TABLET PO SCH (21:05)
[2022-12-13] MEDS: ASPIRIN E.C. 81 MG (ECOTRIN) TAB PO SCH (21:06)
[2022-12-14] MEDS: RT-ALBUTEROL/IPRATROPIUM 3 ML (DUONEB) VIAL INH SCH ×6 (02:30→22:04)
[2022-12-14] MEDS: CEFEPIME INJECTION 1,000 MG in NS (IVPB) 50 ML IV SCH ×3 (03:03→18:12)
[2022-12-14 04:09] LABS: BASOPHILS % (AUTO) 0 % (0-10); EOSINOPHILS # (AUTO) 0.1 10^3/uL (0.0-0.3); EOSINOPHILS % (AUTO) 0 % (0-10); HEMATOCRIT 35 % (35-52); HEMOGLOBIN 11.2 g/dL (11.5-16.0); LYMPHOCYTES # (AUTO) 0.7 10^3/uL (1.0-4.0); LYMPHOCYTES % (AUTO) 4 % (12-44); MEAN CORPUSCULAR HEMOGLOBIN 29 pg (25-34); MEAN CORPUSCULAR HGB CONC 33 g/dL (32-36); MEAN CORPUSCULAR VOLUME 89 fL (80-99); MEAN PLATELET VOLUME 9.2 fL (9.0-12.2); MONOCYTES # (AUTO) 0.9 10^3/uL (0.0-1.0); MONOCYTES % (AUTO) 5 % (0-12); NEUTROPHILS # (AUTO) 14.4 10^3/uL (1.8-7.8); NEUTROPHILS % (AUTO) 89 % (42-75); PLATELET COUNT 364 10^3/uL (130-400); WHITE BLOOD COUNT 16.1 10^3/uL (4.3-11.0)
[2022-12-14 04:27] LABS: ALBUMIN 3.5 GM/DL (3.2-4.5); BILIRUBIN,TOTAL 0.8 MG/DL (0.1-1.0); CALCIUM 8.9 MG/DL (8.5-10.1); CREATININE SERUM 0.87 MG/DL (0.60-1.30); PHOSPHORUS 3.3 MG/DL (2.3-4.7); POTASSIUM 3.9 MMOL/L (3.6-5.0); TOTAL PROTEIN 6.1 GM/DL (6.4-8.2)
[2022-12-14] MEDS: POTASSIUM CL 10MEQ/50ML IVPB 50 ML IV SCH ×3 (05:23→06:41)
[2022-12-14] MEDS: MAGNESIUM 1 GM/100 ML IVPB 100 ML IV SCH (06:00)
[2022-12-14] MEDS: KCL 20 MEQ TAB (K-DUR) PO SCH (06:00)
[2022-12-14] MEDS: LEVOTHYROXINE 75 MCG (LEVOTHROID) TABLET PO SCH ×2 (06:30→13:30)
[2022-12-14] MEDS: CYANOCOBALAMIN 1,000 MCG (VITAMIN B-12) TABLET PO SCH ×2 (06:42→13:29)
[2022-12-14] MEDS: RT-BUDESONIDE NEBS 0.5 MG/2ML (PULMICORT) AMP IH SCH ×2 (06:45→22:04)
[2022-12-14 06:58] VITALS: BP 145/96
[2022-12-14] MEDS ORDERED: LIDOCAINE 2% VISCOUS 15 ML UDC PO ONE (08:15)
--- NOTE | 2022-12-14 08:50 | Progress Note ---
Subjective Date Seen by a Provider: Dec 14, 2022 Time Seen by a Provider: 11:00 Subjective/Events-last exam Patient still in A-fib with RVR TIANNA with cardioversion planned for today Angel and his are at the bedside Still short of breath maintain on BiPAP Labs are stable Review of Systems Pulmonary: Dyspnea, Cough Objective Exam Last Set of Vital Signs Vital Signs Date Time Temp Pulse Resp B/P (MAP) Pulse Ox O2 Delivery O2 Flow Rate FiO2 12/14/22 08:00 36.1 NIV Bilevel 60.00 12/14/22 07:00 146 12/14/22 06:58 30 95 12/14/22 06:00 145/96 (115) 12/12/22 08:44 50 Capillary Refill : Less Than 3 Seconds I&O Intake and Output 12/14/22 00:00 Intake Total 1375 ml Output Total 2200 ml Balance -825 ml Intake Oral 1275 ml IV Total 100 ml Output Urine Total 2200 ml General: Alert, Oriented X3, Cooperative, No Acute Distress, Other (Anxious with BiPAP on) Lungs: Clear to Auscultation Heart: Other ( irregular irregular and tachycardic) Psych/Mental Status: Mental Status NL Results Lab Laboratory Tests 12/14/22 03:47: White Blood Count 16.1H, Red Blood Count 3.86, Hemoglobin 11.2L, Hematocrit 35, Mean Corpuscular Volume 89, Mean Corpuscular Hemoglobin 29, Mean Corpuscular Hemoglobin Concent 33, Red Cell Distribution Width 13.7, Platelet Count 364, Mean Platelet Volume 9.2, Immature Granulocyte % (Auto) 1, Neutrophils (%) (Auto) 89H, Lymphocytes (%) (Auto) 4L, Monocytes (%) (Auto) 5, Eosinophils (%) (Auto) 0, Basophils (%) (Auto) 0, Neutrophils # (Auto) 14.4H, Lymphocytes # (Auto) 0.7L, Monocytes # (Auto) 0.9, Eosinophils # (Auto) 0.1, Basophils # (Auto) 0.0, Immature Granulocyte # (Auto) 0.1, Sodium Level 135, Potassium Level 3.9, Chloride Level 96L, Carbon Dioxide Level 29, Anion Gap 10, Blood Urea Nitrogen 25H, Creatinine 0.87, Estimat Glomerular Filtration Rate 66, BUN/Creatinine Ratio 29, Glucose Level 114H, Calcium Level 8.9, Corrected Calcium 9.3, Phosphorus Level 3.3, Magnesium Level 2.0, Total Bilirubin 0.8, Aspartate Amino Transf (AST/SGOT) 27, Alanine Aminotransferase (ALT/SGPT) 27, Alkaline Phosphatase 76, Total Protein 6.1L, Albumin 3.5 Microbiology 12/10/22 MRSA Screen - Final, Complete MRSA not isolated 12/10/22 Blood Culture - Preliminary, Resulted No growth Assessment/Plan Assessment/Plan Assess & Plan/Chief Complaint Assessment: Acute hypoxic hypercapneic resp failure requiring biPAP Congestive heart failure myopathy HAP Atrial fibrillation s/p cardioversion 11/16/22 Oral anticoagulation Hypothyroidism Hypertension Falls Recent left leg pain due to fall with hematoma from oral anticoagulation Orthostasis with near syncope on 11/11/22 Left-sided sciatica Plan: Continue ICU care Cardioversion and TIANNA today Diagnosis/Problems Diagnosis/Problems (1) Chronic heart failure with preserved ejection fraction (HFpEF) (2) Respiratory distress Status: Acute (3) Pulmonary hypertension (4) Mitral regurgitation (5) Primary hypertension (6) Atrial fibrillation status post cardioversion (7) Paroxysmal atrial fibrillation Clinical Quality Measures Admission Status Admission Dx Assessment: Acute hypoxic hypercapneic resp failure requiring biPAP Congestive heart failure myopathy HAP Atrial fibrillation s/p cardioversion 11/16/22 Oral anticoagulation Hypothyroidism Hypertension Falls Recent left leg pain due to fall with hematoma from oral anticoagulation Orthostasis with near syncope on 11/11/22 Left-sided sciatica ELVA BEAUCHAMP DO Dec 14, 2022 08:50
[2022-12-14] MEDS ORDERED: proPOfol 200 MG/20 ML (DIPRIVAN) VIAL IV ONE (09:32)
--- NOTE | 2022-12-14 10:19 | Progress Note - Cardiology ---
Cardiology SOAP Progress Note Subjective: No cp or palp or syncope Shortness of breath with activity Gen weakness and malaise No n/v/d Objective: I&O/Vital Signs 12/13/22 12/13/22 12/14/22 12/14/22 23:00 23:59 00:00 00:48 Pulse 113 121 147 Resp 18 14 40 B/P (MAP) 135/94 (107) 150/112 (134) 150/102 (115) Pulse Ox 91 94 93 92 O2 Delivery Nasal Cannula High Flow N/C Nasal Cannula Nasal Cannula O2 Flow Rate 3.00 3.00 3.00 3.00 12/14/22 12/14/22 12/14/22 12/14/22 01:00 01:00 02:00 02:30 Pulse 92 92 88 Resp 23 19 B/P (MAP) 137/78 (106) 134/92 (107) Pulse Ox 94 95 94 O2 Delivery Nasal Cannula Nasal Cannula High Flow N/C O2 Flow Rate 3.00 3.00 3.00 12/14/22 12/14/22 12/14/22 12/14/22 03:00 04:00 04:00 05:00 Pulse 89 99 89 Resp 14 19 B/P (MAP) 137/93 (109) 145/89 (107) 149/90 (101) Pulse Ox 96 93 93 93 O2 Delivery Nasal Cannula High Flow N/C Nasal Cannula Nasal Cannula O2 Flow Rate 3.00 3.00 3.00 3.00 12/14/22 12/14/22 12/14/22 12/14/22 06:00 06:45 06:58 07:00 Pulse 111 143 146 Resp 30 B/P (MAP) 145/96 (115) Pulse Ox 91 90 95 O2 Delivery Nasal Cannula High Flow N/C O2 Flow Rate 3.00 6.00 60.00 12/14/22 12/14/22 12/14/22 12/14/22 07:00 08:00 08:00 09:00 Temp 36.1 Pulse 146 112 55 B/P (MAP) 159/107 (124) 147/123 (131) 138/99 (112) Pulse Ox 96 100 100 O2 Delivery Nasal Cannula NIV Bilevel Nasal Cannula Nasal Cannula O2 Flow Rate 3.00 60.00 3.00 3.00 12/14/22 00:00 Intake Total 850 ml Output Total 975 ml Balance -125 ml Weight (Pounds): 157 Weight (Ounces): 0.9 Weight (Calculated Kilograms): 71.347341 Constitutional: AAO x 3, well-developed, well-nourished Respiratory: No accessory muscle use, No respiratory distress; other (diminished lower lobes bilat) Cardiovascular: irregularly irregular; No JVD; S1 and S2 Gastrointestional: No tender; soft; No guarding; audible bowel sounds Extremities: No swelling, No clubbing, No cyanosis Neurologic/Psychiatric: other (moves all extremities) Skin: No rash on exposed areas, No ulcerations on exposed areas Results/Procedures: Labs Laboratory Tests 12/14/22 03:47: White Blood Count 16.1H, Red Blood Count 3.86, Hemoglobin 11.2L, Hematocrit 35, Mean Corpuscular Volume 89, Mean Corpuscular Hemoglobin 29, Mean Corpuscular Hemoglobin Concent 33, Red Cell Distribution Width 13.7, Platelet Count 364, Mean Platelet Volume 9.2, Immature Granulocyte % (Auto) 1, Neutrophils (%) (Auto) 89H, Lymphocytes (%) (Auto) 4L, Monocytes (%) (Auto) 5, Eosinophils (%) (Auto) 0, Basophils (%) (Auto) 0, Neutrophils # (Auto) 14.4H, Lymphocytes # (Auto) 0.7L, Monocytes # (Auto) 0.9, Eosinophils # (Auto) 0.1, Basophils # (Auto) 0.0, Immature Granulocyte # (Auto) 0.1, Sodium Level 135, Potassium Level 3.9, Chloride Level 96L, Carbon Dioxide Level 29, Anion Gap 10, Blood Urea Nitrogen 25H, Creatinine 0.87, Estimat Glomerular Filtration Rate 66, BUN/Creatinine Ratio 29, Glucose Level 114H, Calcium Level 8.9, Corrected Calcium 9.3, Phosphorus Level 3.3, Magnesium Level 2.0, Total Bilirubin 0.8, Aspartate Amino Transf (AST/SGOT) 27, Alanine Aminotransferase (ALT/SGPT) 27, Alkaline Phosphatase 76, Total Protein 6.1L, Albumin 3.5 Microbiology 12/10/22 MRSA Screen - Final, Complete MRSA not isolated 12/10/22 Blood Culture - Preliminary, Resulted No growth Laboratory Tests 12/13/22 04:44 12/14/22 03:47 A/P: Assessment: Acute on chronic diastolic CHF ?Pneumonia - management per medical services SSS and PAF - S/P ILR implant 03-01-[address] Garnica that showed continuing intermittent PAF with RVR on ILR - OAC with Xarelto - EP consult with Dr. Miller who has advised continued medical management, recommended starting Flecainide or Amiodarone per last note in Jul 2022. - MPI of 09-22-2022 showed no evidence of ischemia or infarction. No regional wall motion abnormality. MPI 56% - ECG on 10-14-22: NSR with LBBB and PACs - Recurrent A Fib for which she underwent cardioversion on 11/16/[address] Green - was started on Flecainide 100mg BID - a-fib with RVR on EKG of 12-10-22. Flecainide d/c'd, amiodarone initiated on 12-11-22 - ext elec CV to sinus rhythm on 12-14-22 after having obtained an informed consent Hypothyroidism,treated with thyroid replacement therapy. Managed by PCP Hypertension, labile blood pressure Carotid art disease, history of s/p R CEA by Dr Adams on 05/26/21 at [place], [place] Mild bilat dz per u/s of 09-10-2021 Mitral regurg and mild pulm htn - Echocardiogram of 12-04-[address] Garnica showed LVEF 55-65%. LA mildly dilated. Mod to severe MR. PASP 40-45 mmHg - Echocardiogram of 09-02-20 showed LVEF 55-60%. Grade 1 diastolic dysfunction. Mild MR. AoV sclerosis with mild regurg. PASP 40-45 mmHg - sleep studies by Dr. Brown on 02-14-21 did not indicate sleep apnea - a-fib seen during the test - Echo of 12-11-22: LVEF 55-60%, mod to sev enlargement of LA, mild enlargement of RA, mild to mod MR, triv AI, L pleural eff, PASP 45-50 mmHg COPD with nocturnal hypoxemia Quit smoking when she was in her 40's Chronic, bilateral leg swelling, likely related to venous insuff Chronic scoliosis and degenerative cervical spinal disease (chronically stiff neck and shoulders) Plan: * Elec CV to sinus today after a full discussion of rationale, procedure, risks, benefits, and potential complications with her and her family. Has been on uninterrupted oral anticoag since uneventful elec CV of 11/16/22 * Continue chronic DOAC therapy * Monitor labs TINA BERG MD FACP [facility] Dec 14, 2022 10:19
--- NOTE | 2022-12-14 11:51 | Tele-ICU Progress Note ---
Subjective Date Seen by a Provider: Dec 14, 2022 Time Seen by a Provider: 11:50 Subjective/Events-last exam 1 Sepsis Event Evaluation Height, Weight, BMI Height: 5'3.50" Weight: 157lbs. 0.9oz. 71.698989jj; 23.97 BMI Method: Exam Exam Patient acknowledged, consented, and participated in this virtual visit which was conducted using real time audio/video Vital Signs Date Time Temp Pulse Resp B/P (MAP) Pulse Ox O2 Delivery O2 Flow Rate FiO2 12/14/22 11:44 37.0 NIV Bilevel 60.00 12/14/22 10:27 91 High Flow N/C 6.00 12/14/22 09:00 55 138/99 (112) 100 Nasal Cannula 3.00 12/14/22 08:00 112 147/123 (131) 100 Nasal Cannula 3.00 12/14/22 08:00 36.1 NIV Bilevel 60.00 12/14/22 07:00 146 159/107 (124) 96 Nasal Cannula 3.00 12/14/22 07:00 146 12/14/22 06:58 143 30 95 60.00 12/14/22 06:45 90 High Flow N/C 6.00 12/14/22 06:00 111 145/96 (115) 91 Nasal Cannula 3.00 12/14/22 05:00 89 149/90 (101) 93 Nasal Cannula 3.00 12/14/22 04:00 99 19 145/89 (107) 93 Nasal Cannula 3.00 12/14/22 04:00 93 High Flow N/C 3.00 12/14/22 03:00 89 14 137/93 (109) 96 Nasal Cannula 3.00 12/14/22 02:30 94 High Flow N/C 3.00 12/14/22 02:00 88 19 134/92 (107) 95 Nasal Cannula 3.00 12/14/22 01:00 92 12/14/22 01:00 92 23 137/78 (106) 94 Nasal Cannula 3.00 12/14/22 00:48 147 40 150/102 (115) 92 Nasal Cannula 3.00 12/14/22 00:00 121 14 150/112 (134) 93 Nasal Cannula 3.00 12/13/22 23:59 94 High Flow N/C 3.00 12/13/22 23:00 113 18 135/94 (107) 91 Nasal Cannula 3.00 12/13/22 22:00 95 25 138/83 (97) 94 Nasal Cannula 3.00 12/13/22 21:18 95 High Flow N/C 3.00 12/13/22 21:00 112 24 126/79 (92) 94 Nasal Cannula 3.00 12/13/22 20:00 36.8 12/13/22 20:00 122 22 127/88 (102) 92 Nasal Cannula 3.00 12/13/22 20:00 95 High Flow N/C 3.00 12/13/22 19:00 124 12/13/22 19:00 137 32 129/87 (96) 92 Nasal Cannula 3.00 12/13/22 18:35 94 High Flow N/C 3.00 12/13/22 18:00 122 36 133/91 (105) 91 Nasal Cannula 3.50 12/13/22 17:00 128 51 147/87 (107) 88 Nasal Cannula 3.50 12/13/22 16:00 36.7 12/13/22 16:00 94 High Flow N/C 3.00 12/13/22 16:00 111 45 128/89 (102) 94 Nasal Cannula 3.50 12/13/22 15:00 112 53 143/82 (97) 90 Nasal Cannula 3.50 12/13/22 14:36 94 High Flow N/C 3.00 12/13/22 14:00 112 22 132/91 (106) 93 Nasal Cannula 3.50 12/13/22 13:45 36.0 111 95 12/13/22 13:00 111 29 122/78 (99) 95 Nasal Cannula 3.50 12/13/22 12:48 127 12/13/22 12:00 121 16 134/88 (106) 92 Nasal Cannula 3.50 12/13/22 11:57 95 High Flow N/C 3.00 I & O 12/14/22 07:00 Intake Total 1410 ml Output Total 2100 ml Balance -690 ml Height & Weight Height: 5'3.50" Weight: 157lbs. 0.9oz. 71.962538vx; 23.97 BMI Method: General Appearance: No Apparent Distress, WD/WN HEENT: PERRL/EOMI, Moist Mucous Membranes Neck: Supple Respiratory: Chest Non Tender, No Accessory Muscle Use, Decreased Breath Sounds (bases bilaterally) Cardiovascular: Normal Peripheral Pulses, Irregularly Irregular, Tachycardia Capillary Refill: Less Than 3 Seconds Gastrointestinal: normal bowel sounds, non tender, soft Extremity: Pedal Edema, Swelling Neurologic/Psychiatric: Alert, Oriented x3, Normal Mood/Affect Skin: Normal Color, Warm/Dry Results Lab Laboratory Tests 12/13/22 04:44 12/14/22 03:47 Assessment/Plan Assessment/Plan 1 TOMA CORREIA MD Dec 14, 2022 11:51
[2022-12-14] MEDS: FUROSEMIDE 40 MG/4 ML INJ (LASIX) IVP SCH (13:27)
[2022-12-14] MEDS: ACETAMINOPHEN 325 MG TABLET PO PRN (13:27)
[2022-12-14] MEDS: polyethylene glycoL POWDER 17 GM (MIRALAX) PACK PO SCH (13:28)
[2022-12-14] MEDS: AMIODARONE 200 MG (CORDARONE) TAB PO SCH ×2 (13:28→21:20)
[2022-12-14] MEDS: SENNOSIDES 8.6 MG (SENOKOT) TAB PO SCH ×3 (13:28→21:21)
[2022-12-14] MEDS: DOCUSATE SODIUM 100 MG (COLACE) CAP PO SCH ×2 (13:29→21:20)
[2022-12-14 14:17] VITALS: BP 74/52
--- NOTE | 2022-12-14 14:36 | Diagnostic Imaging Report ---
INDICATION: Pneumonia. COMPARISON: 12/13/2022. FINDINGS: A single frontal radiographic view of the chest was obtained and demonstrates persistent cardiomegaly and pulmonary vascular congestion. There is also persistent diffuse coarse prominence of the interstitium with more patchy alveolar opacities in the bilateral perihilar regions. These may be slightly improved compared to the prior exam. Bibasilar effusions persist and appear stable. There is no pneumothorax. IMPRESSION: 1. Bilateral perihilar alveolar opacities appear slightly improved. Findings could be on the basis of improving pulmonary edema although pneumonia is not entirely excluded. 2. Cardiomegaly with probable sequela of CHF including interstitial pulmonary edema and bilateral pleural effusions. Dictated by: Dictated on workstation # [id number]
--- NOTE | 2022-12-14 18:10 | OPERATIVE REPORT ---
PROCEDURE: External electrical cardioversion. PREOPERATIVE DIAGNOSIS: Atrial flutter/fibrillation. POSTOPERATIVE DIAGNOSIS: Sinus rhythm. PROCEDURE: External electrical cardioversion. Informed consent was obtained before the procedure. This was after a full discussion of rationale, procedure, risks, benefits, potential complications, and alternatives of external electrical cardioversion with her and with her family, including her son. Transesophageal echocardiography was attempted, but we were not able to pass the probe into the esophagus. Because of chronic anticoagulation, we did not make further attempts (given risk of bleeding). We spoke with her son and proceeded with external electrical cardioversion because she has been on uninterrupted anticoagulation since her last external electrical cardioversion of 11/16/2022. A 120 joules of synchronized shock was delivered through external patches. This converted atrial fibrillation/flutter to sinus rhythm and she tolerated the procedure well. Short-acting anesthesia was provided by the nurse training representative during this procedure. Job ID: [id number] DocumentID: [id number] Dictated Date: 12/14/2022 10:16:10 Research Staff Member Date: 12/14/2022 18:08:00 Dictated By: TINA BERG MD; MIRANDA; FACP; FACC;
[2022-12-14] MEDS: RIVAROXABAN 15 MG TABLET (XARELTO) PO SCH (18:13)
--- NOTE | 2022-12-14 19:53 | Physician Query-Final Dx ---
JANAY CASTANEDA 12/14/221952: Final Diagnosis Give Final Diagnosis Please give Final Diagnosis The medical record reflects the following clinical scenario: The patient, in the setting of History/Risk factors, Hx HTN and CHF, At. fib on admission, Clinical Findings BNP 652 on admission, LE swelling, Short of Breath, Treatment IV Lasix, Ground[employer] Monitoring Technician consult, Cardioversion for At. Fib Question: Do you agree with the impression of acute on chronic diastolic CHF, per Dr. Katy Lopez and Dr. Belen Acevedo? Yes; will document Acute on Chronic Diastolic CHF, present on admission in the Progress Notes No; will continue current documentation in the Progress Notes Other; will document explanation of clinical findings Clinically undetermined; no explanation for clinical findings Please clarify and document your clinical opinion in the Progress Notes and Discharge Summary including the definitive and/or presumptive diagnosis, (suspected or probable), related to the above clinical findings. Please include clinical findings supporting your diagnosis. In responding to this query, please exercise your independent professional judgment. The purpose of this communication is to more accurately reflect the complexity of your patients condition. The fact that a question is asked does not imply that any particular answer is desired or expected. Thank you for timely response to this clarification. Janay Castaneda, MSN, RN Clinical Automotive Accessory Installer [phone] [email or web address] ELVA BEAUCHAMP DO 12/14/222008: Final Diagnosis Give Final Diagnosis Yes; will document Acute on Chronic Diastolic CHF, present on admission in the Progress Notes JANAY CASTANEDA Dec 14, 2022 19:53 ELVA BEAUCHAMP DO Dec 14, 2022 20:09
[2022-12-14] MEDS ORDERED: ALPRAZolam 0.25 MG (XANAX) TAB PO ONE (20:30)
[2022-12-14] MEDS ORDERED: ALPRAZolam 0.25 MG (XANAX) TAB ONE (21:17)
[2022-12-14] MEDS: ASPIRIN E.C. 81 MG (ECOTRIN) TAB PO SCH (21:19)
[2022-12-14] MEDS: SERTRALINE 50 MG (ZOLOFT) TABLET PO SCH (21:20)
[2022-12-15] MEDS: CEFEPIME INJECTION 1,000 MG in NS (IVPB) 50 ML IV SCH ×2 (01:33→09:18)
[2022-12-15] MEDS: RT-ALBUTEROL/IPRATROPIUM 3 ML (DUONEB) VIAL INH SCH ×6 (02:37→21:55)
[2022-12-15 04:01] LABS: BASOPHILS % (AUTO) 0 % (0-10); EOSINOPHILS % (AUTO) 0 % (0-10); HEMATOCRIT 36 % (35-52); HEMOGLOBIN 11.6 g/dL (11.5-16.0); LYMPHOCYTES # (AUTO) 0.5 10^3/uL (1.0-4.0); LYMPHOCYTES % (AUTO) 4 % (12-44); MEAN CORPUSCULAR HEMOGLOBIN 29 pg (25-34); MEAN CORPUSCULAR HGB CONC 32 g/dL (32-36); MEAN CORPUSCULAR VOLUME 90 fL (80-99); MEAN PLATELET VOLUME 9.3 fL (9.0-12.2); MONOCYTES # (AUTO) 0.5 10^3/uL (0.0-1.0); MONOCYTES % (AUTO) 4 % (0-12); NEUTROPHILS # (AUTO) 10.1 10^3/uL (1.8-7.8); NEUTROPHILS % (AUTO) 91 % (42-75); PLATELET COUNT 323 10^3/uL (130-400); WHITE BLOOD COUNT 11.2 10^3/uL (4.3-11.0)
[2022-12-15 04:16] LABS: ALBUMIN 3.6 GM/DL (3.2-4.5); BILIRUBIN,TOTAL 0.9 MG/DL (0.1-1.0); CALCIUM 8.9 MG/DL (8.5-10.1); CREATININE SERUM 0.89 MG/DL (0.60-1.30); MAGNESIUM 2.1 MG/DL (1.6-2.4); PHOSPHORUS 3.5 MG/DL (2.3-4.7); POTASSIUM 3.8 MMOL/L (3.6-5.0); TOTAL PROTEIN 6.3 GM/DL (6.4-8.2)
[2022-12-15] MEDS: MAGNESIUM 1 GM/100 ML IVPB 100 ML IV SCH (04:30)
[2022-12-15] MEDS: POTASSIUM CL 10MEQ/50ML IVPB 50 ML IV SCH (04:30)
[2022-12-15] MEDS: KCL 20 MEQ TAB (K-DUR) PO SCH (04:30)
[2022-12-15] MEDS: LEVOTHYROXINE 88 MCG (LEVOTHORID) TAB PO SCH (05:31)
--- NOTE | 2022-12-15 05:42 | Progress Note ---
Subjective Date Seen by a Provider: Dec 15, 2022 Time Seen by a Provider: 11:00 Subjective/Events-last exam Doing better No pain Cardioversion yesterday Anxiety increases and hypoxia occurs No BIPAP Xanax ordered Review of Systems General: Fatigue, Malaise Pulmonary: Dyspnea, Cough Objective Exam Last Set of Vital Signs Vital Signs Date Time Temp Pulse Resp B/P (MAP) Pulse Ox O2 Delivery O2 Flow Rate FiO2 12/15/22 05:29 High Flow N/C 4.00 12/15/22 05:08 82 21 162/86 (111) 93 12/15/22 04:03 36.5 12/12/22 08:44 50 Capillary Refill : Less Than 3 Seconds I&O Intake and Output 12/15/22 00:00 Intake Total 1110 ml Output Total 1900 ml Balance -790 ml Intake Oral 860 ml IV Total 250 ml Output Urine Total 1900 ml General: Alert, Oriented X3, Cooperative, No Acute Distress, Other (frail) Lungs: Clear to Auscultation Heart: Regular Rate Psych/Mental Status: Mental Status NL Results Lab Laboratory Tests 12/15/22 03:39: White Blood Count 11.2H, Red Blood Count 4.00, Hemoglobin 11.6, Hematocrit 36, Mean Corpuscular Volume 90, Mean Corpuscular Hemoglobin 29, Mean Corpuscular Hemoglobin Concent 32, Red Cell Distribution Width 13.7, Platelet Count 323, Mean Platelet Volume 9.3, Immature Granulocyte % (Auto) 1, Neutrophils (%) (Auto) 91H, Lymphocytes (%) (Auto) 4L, Monocytes (%) (Auto) 4, Eosinophils (%) (Auto) 0, Basophils (%) (Auto) 0, Neutrophils # (Auto) 10.1H, Lymphocytes # (Auto) 0.5L, Monocytes # (Auto) 0.5, Eosinophils # (Auto) 0.0, Basophils # (Auto) 0.0, Immature Granulocyte # (Auto) 0.1, Sodium Level 136, Potassium Level 3.8, Chloride Level 96L, Carbon Dioxide Level 29, Anion Gap 11, Blood Urea Nitrogen 27H, Creatinine 0.89, Estimat Glomerular Filtration Rate 65, BUN/Creatinine Ratio 30, Glucose Level 117H, Calcium Level 8.9, Corrected Calcium 9.2, Phosphorus Level 3.5, Magnesium Level 2.1, Total Bilirubin 0.9, Aspartate Amino Transf (AST/SGOT) 22, Alanine Aminotransferase (ALT/SGPT) 26, Alkaline Phosphatase 72, Total Protein 6.3L, Albumin 3.6 Microbiology 12/10/22 MRSA Screen - Final, Complete MRSA not isolated 12/10/22 Blood Culture - Preliminary, Resulted No growth Assessment/Plan Assessment/Plan Assess & Plan/Chief Complaint Assessment: Acute hypoxic hypercapneic resp failure requiring biPAP Congestive heart failure myopathy HAP Atrial fibrillation s/p cardioversion 11/16/22 and again 12/14/22 Oral anticoagulation Hypothyroidism Hypertension Falls Recent left leg pain due to fall with hematoma from oral anticoagulation Orthostasis with near syncope on 11/11/22 Left-sided sciatica Anxiety Frail status Plan: Continue ICU care Cardioversion and TIANNA done Xanax Diagnosis/Problems Diagnosis/Problems (1) Chronic heart failure with preserved ejection fraction (HFpEF) (2) Respiratory distress Status: Acute (3) Pulmonary hypertension (4) Mitral regurgitation (5) Primary hypertension (6) Atrial fibrillation status post cardioversion (7) Paroxysmal atrial fibrillation Clinical Quality Measures Admission Status Admission Dx Assessment: Acute hypoxic hypercapneic resp failure requiring biPAP Congestive heart failure myopathy HAP Atrial fibrillation s/p cardioversion 11/16/22 Oral anticoagulation Hypothyroidism Hypertension Falls Recent left leg pain due to fall with hematoma from oral anticoagulation Orthostasis with near syncope on 11/11/22 Left-sided sciatica ELVA BEAUCHAMP DO Dec 15, 2022 05:42
[2022-12-15] MEDS: RT-BUDESONIDE NEBS 0.5 MG/2ML (PULMICORT) AMP IH SCH ×2 (07:52→21:55)
[2022-12-15 07:53] VITALS: BP 148/80
--- NOTE | 2022-12-15 08:07 | Tele-ICU Progress Note ---
Subjective Date Seen by a Provider: Dec 15, 2022 Time Seen by a Provider: 08:01 Subjective/Events-last exam (Tele-ICU Physician , Progress Note ) Service provided via interactive audio and video telecommunications E-CARE system to a patient admitted to ICU bed in [facility]. Patient is seen today due to persistent need of ICU care Available chart/ vitals / labs / Images reviewed Video assessment done using teleICU camera, rest of exam as per RN Discussed with RN Events overnight : Afebrile hemodynamically stable Respiratory - 3L I/O = Drips: Pressors- no 82 yo F admitted with a fib with RVR on po amiodarone, V rate now in 75 with NSR with PVC, PAC's , Now on Decadron 2 mg IV q 12, IV Cefepime, IV Lasix 40 mg IVP, was on NIV 12/6 FiO2 60%, now on NC @ 4 lpm with SpO2 92-94%, I reviewed CXR from today still shows bilateral opacities R > L probably CHF but could also be a PNA Sepsis Event Evaluation Height, Weight, BMI Height: 5'3.50" Weight: 157lbs. 0.9oz. 71.022013vz; 23.79 BMI Method: Exam Exam Patient acknowledged, consented, and participated in this virtual visit which was conducted using real time audio/video Vital Signs Date Time Temp Pulse Resp B/P (MAP) Pulse Ox O2 Delivery O2 Flow Rate FiO2 12/15/22 07:56 36.0 12/15/22 07:53 64 14 100 60.00 12/15/22 07:00 67 12/15/22 06:19 NIV Bilevel 60.00 12/15/22 06:00 84 17 166/89 (114) 93 High Flow N/C 2.00 12/15/22 05:29 High Flow N/C 4.00 12/15/22 05:08 82 21 162/86 (111) 93 High Flow N/C 2.00 12/15/22 04:03 36.5 12/15/22 04:00 94 High Flow N/C 2.00 12/15/22 04:00 73 15 153/78 (96) 93 High Flow N/C 2.00 12/15/22 03:00 79 167/88 (120) 91 High Flow N/C 2.00 12/15/22 02:29 High Flow N/C 2.00 12/15/22 02:00 82 14 148/64 (92) 97 High Flow N/C 4.00 12/15/22 01:09 36.4 12/15/22 01:00 81 12/15/22 01:00 77 23 138/64 (103) 94 High Flow N/C 4.00 12/15/22 00:00 80 40 159/74 (102) 95 High Flow N/C 4.00 12/15/22 00:00 95 High Flow N/C 4.00 12/14/22 23:21 36.7 12/14/22 23:00 73 10 159/74 (105) 94 High Flow N/C 4.00 12/14/22 22:05 97 High Flow N/C 4.00 12/14/22 22:00 75 18 141/73 (103) 97 High Flow N/C 4.00 12/14/22 21:00 89 133/69 (94) 97 High Flow N/C 4.00 12/14/22 20:00 76 12 117/53 (77) 94 High Flow N/C 4.00 12/14/22 19:25 92 High Flow N/C 4.00 12/14/22 19:00 36.8 82 18 149/89 (109) 90 High Flow N/C 4.00 12/14/22 19:00 80 12/14/22 18:55 93 High Flow N/C 4.00 12/14/22 18:00 81 25 145/78 (100) 94 High Flow N/C 4.00 12/14/22 17:00 67 12 116/66 (83) 100 High Flow N/C 4.00 12/14/22 16:00 70 125/68 (87) 100 Nasal Cannula 3.00 12/14/22 16:00 94 High Flow N/C 4.00 12/14/22 15:53 36.6 12/14/22 15:00 70 128/70 (89) 99 Nasal Cannula 3.00 12/14/22 14:35 66 89/57 12/14/22 14:17 64 13 98 60.00 12/14/22 14:00 77 74/52 (59) 100 Nasal Cannula 3.00 12/14/22 13:55 114 157/92 12/14/22 13:00 101 157/92 (113) 99 Nasal Cannula 3.00 12/14/22 12:00 123 153/75 (101) 100 Nasal Cannula 3.00 12/14/22 12:00 93 High Flow N/C 5.00 12/14/22 11:44 37.0 NIV Bilevel 60.00 12/14/22 11:00 87 156/72 (100) 90 Nasal Cannula 3.00 12/14/22 10:27 91 High Flow N/C 6.00 12/14/22 10:00 68 150/75 (100) 94 Nasal Cannula 3.00 12/14/22 09:00 55 138/99 (112) 100 Nasal Cannula 3.00 I & O 12/15/22 07:00 Intake Total 1325 ml Output Total 2000 ml Balance -675 ml Height & Weight Height: 5'3.50" Weight: 157lbs. 0.9oz. 71.048891ci; 23.79 BMI Method: General Appearance: No Apparent Distress, WD/WN HEENT: PERRL/EOMI, Moist Mucous Membranes Neck: Supple Respiratory: Chest Non Tender, No Accessory Muscle Use, Decreased Breath Sounds (bases bilaterally) Cardiovascular: Regular Rate, Rhythm, Normal Peripheral Pulses, Irregularly Irregular, Tachycardia, Other (right now in NSR) Capillary Refill: Less Than 3 Seconds Gastrointestinal: normal bowel sounds, non tender, soft Extremity: No Pedal Edema (no ankle edema), Pedal Edema, Swelling, Other Neurologic/Psychiatric: Alert, Oriented x3, Normal Mood/Affect Skin: Normal Color, Warm/Dry Results Lab Laboratory Tests 12/14/22 03:47 12/15/22 03:39 Assessment/Plan Assessment/Plan CHF, AECOPD, PNA continue on 4 lpm NC for now continue IV Cefepime, IV Lasix, steroids, Critical Care: Critically Ill Patient Time spent with patient (mins): 25 REINALDO BOO MD Dec 15, 2022 08:07
[2022-12-15] MEDS: DOCUSATE SODIUM 100 MG (COLACE) CAP PO SCH ×2 (08:19→21:03)
[2022-12-15] MEDS: polyethylene glycoL POWDER 17 GM (MIRALAX) PACK PO SCH (08:20)
[2022-12-15] MEDS: FUROSEMIDE 40 MG/4 ML INJ (LASIX) IVP SCH (08:20)
[2022-12-15] MEDS: AMIODARONE 200 MG (CORDARONE) TAB PO SCH ×2 (08:20→21:03)
[2022-12-15] MEDS ORDERED: KCL 20 MEQ TAB (K-DUR) PO ONE (08:30)
[2022-12-15] MEDS ORDERED: FUROSEMIDE 40 MG/4 ML INJ (LASIX) IVP NR (09:00)
--- NOTE | 2022-12-15 10:22 | Progress Note - Cardiology ---
Cardiology SOAP Progress Note Subjective: Sitting up in bed C/O increasing SOB this morning No c/o CP or palpitations Objective: I&O/Vital Signs 12/15/22 12/15/22 12/15/22 12/15/22 21:00 21:00 21:55 22:00 Pulse 70 69 81 Resp 29 18 19 B/P (MAP) 126/67 (86) 126/67 (86) 135/60 (85) Pulse Ox 97 98 97 97 O2 Delivery High Flow N/C High Flow N/C High Flow N/C High Flow N/C O2 Flow Rate 4.00 4.00 4.00 4.00 12/15/22 12/15/22 12/15/22 12/16/22 23:00 23:55 23:55 00:00 Temp 36.7 Pulse 74 68 70 Resp 11 14 11 B/P (MAP) 126/62 (83) 110/54 (72) Pulse Ox 95 91 91 91 O2 Delivery High Flow N/C High Flow N/C High Flow N/C High Flow N/C O2 Flow Rate 4.00 4.00 4.00 4.00 12/16/22 12/16/22 12/16/22 12/16/22 00:26 01:00 02:00 02:55 Pulse 75 73 85 Resp 12 22 B/P (MAP) 144/69 (94) 145/74 (97) Pulse Ox 94 92 95 O2 Delivery High Flow N/C High Flow N/C High Flow N/C O2 Flow Rate 4.00 4.00 4.00 12/16/22 12/16/22 12/16/22 12/16/22 03:00 04:00 04:00 05:00 Temp 36.2 Pulse 70 66 65 Resp 15 12 B/P (MAP) 152/75 (100) 133/62 (85) 138/64 (88) Pulse Ox 99 94 94 90 O2 Delivery High Flow N/C High Flow N/C High Flow N/C High Flow N/C O2 Flow Rate 4.00 4.00 4.00 4.00 12/16/22 12/16/22 12/16/22 12/16/22 06:00 06:10 06:18 06:37 Pulse 75 Resp 16 B/P (MAP) 160/79 (106) Pulse Ox 96 93 94 O2 Delivery High Flow N/C High Flow N/C High Flow N/C High Flow N/C O2 Flow Rate 4.00 4.00 3.00 3.00 12/16/22 12/16/22 07:00 07:26 Temp 36.5 Pulse 72 12/16/22 00:00 Intake Total 800 ml Output Total 2250 ml Balance -1450 ml Weight (Pounds): 157 Weight (Ounces): 0.9 Weight (Calculated Kilograms): 71.131330 Constitutional: AAO x 3, well-developed, well-nourished Respiratory: No accessory muscle use, No respiratory distress; other (diminished lower lobes bilat) Cardiovascular: irregularly irregular; No JVD; S1 and S2 Gastrointestional: No tender; soft; No guarding; audible bowel sounds Extremities: No swelling, No clubbing, No cyanosis Neurologic/Psychiatric: other (moves all extremities) Skin: No rash on exposed areas, No ulcerations on exposed areas Results/Procedures: Labs Laboratory Tests 12/16/22 03:00: White Blood Count 16.5H, Red Blood Count 3.85, Hemoglobin 10.9L, Hematocrit 35, Mean Corpuscular Volume 90, Mean Corpuscular Hemoglobin 28, Mean Corpuscular Hemoglobin Concent 32, Red Cell Distribution Width 13.8, Platelet Count 325, Mean Platelet Volume 8.9L, Immature Granulocyte % (Auto) 1, Neutrophils (%) (Auto) 91H, Lymphocytes (%) (Auto) 3L, Monocytes (%) (Auto) 5, Eosinophils (%) (Auto) 0, Basophils (%) (Auto) 0, Neutrophils # (Auto) 15.1H, Lymphocytes # (Auto) 0.5L, Monocytes # (Auto) 0.8, Eosinophils # (Auto) 0.0, Basophils # (Auto) 0.0, Immature Granulocyte # (Auto) 0.1, Neutrophils % (Manual) 92, Lymphocytes % (Manual) 3, Monocytes % (Manual) 5, Hypochromasia SLIGHT, Sodium Level 137, Potassium Level 4.2, Chloride Level 94L, Carbon Dioxide Level 34H, Anion Gap 9, Blood Urea Nitrogen 36H, Creatinine 0.78, Estimat Glomerular Filtration Rate 76, BUN/Creatinine Ratio 46, Glucose Level 110H, Calcium Level 9.4, Corrected Calcium 10.0, Phosphorus Level 2.8, Magnesium Level 2.1, Total Bilirubin 0.8, Aspartate Amino Transf (AST/SGOT) 19, Alanine Aminotransferase (ALT/SGPT) 21, Alkaline Phosphatase 71, Total Protein 5.9L, Albumin 3.3 Microbiology 12/10/22 MRSA Screen - Final, Complete MRSA not isolated 12/10/22 Blood Culture - Preliminary, Resulted No growth A/P: Assessment: Acute on chronic diastolic CHF ?Pneumonia - management per medical services SSS and PAF - S/P ILR implant 03-01-[address] Garnica that showed continuing intermittent PAF with RVR on ILR - OAC with Xarelto - EP consult with Dr. Miller who has advised continued medical management, recommended starting Flecainide or Amiodarone per last note in Jul 2022. - MPI of 09-22-2022 showed no evidence of ischemia or infarction. No regional wall motion abnormality. MPI 56% - ECG on 10-14-22: NSR with LBBB and PACs - Recurrent A Fib for which she underwent cardioversion on 11/16/[address] Green - was started on Flecainide 100mg BID - a-fib with RVR on EKG of 12-10-22. Flecainide d/c'd, amiodarone initiated on 12-11-22 - ext elec CV to sinus rhythm on 12-14-22 after having obtained an informed consent Hypothyroidism,treated with thyroid replacement therapy. Managed by PCP Hypertension, labile blood pressure Carotid art disease, history of s/p R CEA by Dr Adams on 05/26/21 at [place], [place] Mild bilat dz per u/s of 09-10-2021 Mitral regurg and mild pulm htn - Echocardiogram of 12-04-[address] Garnica showed LVEF 55-65%. LA mildly dilated. Mod to severe MR. PASP 40-45 mmHg - Echocardiogram of 09-02-20 showed LVEF 55-60%. Grade 1 diastolic dysfunction. Mild MR. AoV sclerosis with mild regurg. PASP 40-45 mmHg - sleep studies by Dr. Brown on 02-14-21 did not indicate sleep apnea - a-fib seen during the test - Echo of 12-11-22: LVEF 55-60%, mod to sev enlargement of LA, mild enlargement of RA, mild to mod MR, triv AI, L pleural eff, PASP 45-50 mmHg COPD with nocturnal hypoxemia Quit smoking when she was in her 40's Chronic, bilateral leg swelling, likely related to venous insuff Chronic scoliosis and degenerative cervical spinal disease (chronically stiff neck and shoulders) Plan: * Elec CV on 12-14-22 - maintaining SR * Continue chronic DOAC therapy * Monitor labs BRITTANEY PERRIN [facility] Dec 15, 2022 10:22
--- NOTE | 2022-12-15 11:05 | Diagnostic Imaging Report ---
EXAMINATION: Chest 1 view HISTORY: Pneumonia COMPARISON: 12/14/2022 FINDINGS: Heart size and pulmonary vasculature are stable. Stable patchy interstitial and airspace opacities within the lungs. Stable bilateral pleural effusions. No pneumothorax. Degenerative changes of the thoracic spine. Osseous structures are otherwise intact. IMPRESSION: 1. Stable patchy interstitial airspace opacities throughout both lungs with small bilateral pleural effusions. Dictated by: Dictated on workstation # [id number]
[2022-12-15] MEDS: RIVAROXABAN 15 MG TABLET (XARELTO) PO SCH (16:05)
--- NOTE | 2022-12-15 17:15 | Progress Note - Cardiology ---
Cardiology SOAP Progress Note Subjective: Notes anxiety Gen malaise and weakness No focal weakness No n/v/d No cp or palp or syncope Objective: I&O/Vital Signs 12/15/22 12/15/22 12/15/22 12/15/22 05:29 06:00 06:19 07:00 Pulse 84 67 Resp 17 B/P (MAP) 166/89 (114) Pulse Ox 93 O2 Delivery High Flow N/C High Flow N/C NIV Bilevel O2 Flow Rate 4.00 2.00 60.00 12/15/22 12/15/22 12/15/22 12/15/22 07:00 07:53 07:56 08:00 Temp 36.0 Pulse 67 64 65 Resp 12 14 14 B/P (MAP) 148/80 (102) 155/86 (109) Pulse Ox 100 100 100 O2 Delivery NIV Bilevel NIV Bilevel O2 Flow Rate 60.00 60.00 60.00 12/15/22 12/15/22 12/15/22 12/15/22 08:00 09:00 10:00 10:16 Pulse 79 76 Resp 17 21 B/P (MAP) 154/85 (108) 125/76 (92) Pulse Ox 94 93 92 95 O2 Delivery High Flow N/C NIV Bilevel NIV Bilevel High Flow N/C O2 Flow Rate 4.00 60.00 60.00 4.00 12/15/22 12/15/22 12/15/22 12/15/22 11:00 11:48 12:00 12:00 Temp 36.0 Pulse 85 83 Resp 20 B/P (MAP) 135/71 (92) 129/61 (83) Pulse Ox 91 94 O2 Delivery NIV Bilevel High Flow N/C NIV Bilevel O2 Flow Rate 60.00 4.00 60.00 12/15/22 12/15/22 12/15/22 12/15/22 13:00 13:00 14:00 15:07 Pulse 73 79 83 B/P (MAP) 111/48 (69) 128/66 (86) Pulse Ox 98 O2 Delivery NIV Bilevel Nasal Cannula High Flow N/C O2 Flow Rate 60.00 5.00 4.00 12/15/22 12/15/22 15:44 16:00 Temp 36.8 Pulse Ox 93 O2 Delivery High Flow N/C O2 Flow Rate 4.00 12/15/22 00:00 Intake Total 800 ml Output Total 1550 ml Balance -750 ml Weight (Pounds): 157 Weight (Ounces): 0.9 Weight (Calculated Kilograms): 71.144670 Constitutional: AAO x 3, well-developed, well-nourished Respiratory: No accessory muscle use, No respiratory distress; other (diminished lower lobes bilat) Cardiovascular: irregularly irregular; No JVD; S1 and S2 Gastrointestional: No tender; soft; No guarding; audible bowel sounds Extremities: No swelling, No clubbing, No cyanosis Neurologic/Psychiatric: other (moves all extremities) Skin: No rash on exposed areas, No ulcerations on exposed areas Results/Procedures: Labs Laboratory Tests 12/15/22 03:39: White Blood Count 11.2H, Red Blood Count 4.00, Hemoglobin 11.6, Hematocrit 36, Mean Corpuscular Volume 90, Mean Corpuscular Hemoglobin 29, Mean Corpuscular Hemoglobin Concent 32, Red Cell Distribution Width 13.7, Platelet Count 323, Mean Platelet Volume 9.3, Immature Granulocyte % (Auto) 1, Neutrophils (%) (Auto) 91H, Lymphocytes (%) (Auto) 4L, Monocytes (%) (Auto) 4, Eosinophils (%) (Auto) 0, Basophils (%) (Auto) 0, Neutrophils # (Auto) 10.1H, Lymphocytes # (Auto) 0.5L, Monocytes # (Auto) 0.5, Eosinophils # (Auto) 0.0, Basophils # (Auto) 0.0, Immature Granulocyte # (Auto) 0.1, Sodium Level 136, Potassium Level 3.8, Chloride Level 96L, Carbon Dioxide Level 29, Anion Gap 11, Blood Urea Nitrogen 27H, Creatinine 0.89, Estimat Glomerular Filtration Rate 65, BUN/Creatinine Ratio 30, Glucose Level 117H, Calcium Level 8.9, Corrected Calcium 9.2, Phosphorus Level 3.5, Magnesium Level 2.1, Total Bilirubin 0.9, Aspartate Amino Transf (AST/SGOT) 22, Alanine Aminotransferase (ALT/SGPT) 26, Alkaline Phosphatase 72, Total Protein 6.3L, Albumin 3.6 Microbiology 12/10/22 MRSA Screen - Final, Complete MRSA not isolated 12/10/22 Blood Culture - Preliminary, Resulted No growth Procedures Laboratory Tests 12/14/22 03:47 12/15/22 03:39 A/P: Assessment: Acute on chronic diastolic CHF - MPI of 09-22-2022 showed no evidence of ischemia or infarction. No regional wall motion abnormality. MPI 56% ?Pneumonia - management per medical services SSS and PAF - S/P ILR implant 03-01-[address] Garnica - OAC with Xarelto - EP consult with Dr. Miller who has advised continued medical management, recommended starting Flecainide or Amiodarone per last note in Jul 2022. - ECG on 10-14-22: NSR with LBBB and PACs - Recurrent A Fib for which she underwent cardioversion on 11/16/[address] Green - was started on Flecainide 100mg BID - a-fib with RVR on EKG of 12-10-22. Flecainide d/c'd, amiodarone initiated on 12-11-22 - ext elec CV to sinus rhythm on 12-14-22 Hypothyroidism,treated with thyroid replacement therapy. Managed by PCP Hypertension, labile blood pressure Carotid art disease, history of s/p R CEA by Dr Adams on 05/26/21 at [facility], [place], [place] Mild bilat dz per u/s of 09-10-2021 Mitral regurg and mild pulm htn - Echocardiogram of 12-04-[address] Garnica showed LVEF 55-65%. LA mildly dilated. Mod to severe MR. PASP 40-45 mmHg - Echocardiogram of 09-02-20 showed LVEF 55-60%. Grade 1 diastolic dysfunction. Mild MR. AoV sclerosis with mild regurg. PASP 40-45 mmHg - sleep studies by Dr. Brown on 02-14-21 did not indicate sleep apnea - a-fib seen during the test - Echo of 12-11-22: LVEF 55-60%, mod to sev enlargement of LA, mild enlargement of RA, mild to mod MR, triv AI, L pleural eff, PASP 45-50 mmHg COPD with nocturnal hypoxemia Quit smoking when she was in her 40's Chronic, bilateral leg swelling, likely related to venous insuff Chronic scoliosis and degenerative cervical spinal disease (chronically stiff neck and shoulders) Plan: * Elec CV on 12-14-22 - maintaining SR * Continue chronic DOAC therapy * Continue amiodarone * Monitor labs * I discussed her CV issues with her and answered questions TINA BERG MD FACP FAC CCDS Dec 15, 2022 17:15
[2022-12-15] MEDS: SERTRALINE 50 MG (ZOLOFT) TABLET PO SCH (21:03)
[2022-12-15] MEDS: SENNOSIDES 8.6 MG (SENOKOT) TAB PO SCH (21:03)
[2022-12-15] MEDS: ALPRAZolam 0.25 MG (XANAX) TAB PO PRN (21:04)
[2022-12-15] MEDS: ASPIRIN E.C. 81 MG (ECOTRIN) TAB PO SCH (21:04)
[2022-12-16] MEDS: RT-ALBUTEROL/IPRATROPIUM 3 ML (DUONEB) VIAL INH SCH ×5 (02:56→21:32)
[2022-12-16 03:12] LABS: BASOPHILS % (AUTO) 0 % (0-10); EOSINOPHILS % (AUTO) 0 % (0-10); HEMATOCRIT 35 % (35-52); HEMOGLOBIN 10.9 g/dL (11.5-16.0); LYMPHOCYTES # (AUTO) 0.5 10^3/uL (1.0-4.0); LYMPHOCYTES % (AUTO) 3 % (12-44); MEAN CORPUSCULAR HEMOGLOBIN 28 pg (25-34); MEAN CORPUSCULAR HGB CONC 32 g/dL (32-36); MEAN CORPUSCULAR VOLUME 90 fL (80-99); MEAN PLATELET VOLUME 8.9 fL (9.0-12.2); MONOCYTES # (AUTO) 0.8 10^3/uL (0.0-1.0); MONOCYTES % (AUTO) 5 % (0-12); NEUTROPHILS # (AUTO) 15.1 10^3/uL (1.8-7.8); NEUTROPHILS % (AUTO) 91 % (42-75); PLATELET COUNT 325 10^3/uL (130-400); WHITE BLOOD COUNT 16.5 10^3/uL (4.3-11.0)
[2022-12-16 03:30] LABS: ALBUMIN 3.3 GM/DL (3.2-4.5); POTASSIUM 4.2 MMOL/L (3.6-5.0)
[2022-12-16 03:31] LABS: CALCIUM 9.4 MG/DL (8.5-10.1)
[2022-12-16 03:32] LABS: TOTAL PROTEIN 5.9 GM/DL (6.4-8.2)
[2022-12-16 03:34] LABS: BILIRUBIN,TOTAL 0.8 MG/DL (0.1-1.0)
[2022-12-16 03:35] LABS: PHOSPHORUS 2.8 MG/DL (2.3-4.7)
[2022-12-16 03:36] LABS: CREATININE SERUM 0.78 MG/DL (0.60-1.30)
[2022-12-16 03:38] LABS: MAGNESIUM 2.1 MG/DL (1.6-2.4)
[2022-12-16] MEDS: KCL 20 MEQ TAB (K-DUR) PO SCH (03:43)
[2022-12-16] MEDS: MAGNESIUM 1 GM/100 ML IVPB 100 ML IV SCH (03:43)
[2022-12-16] MEDS: POTASSIUM CL 10MEQ/50ML IVPB 50 ML IV SCH (03:43)
[2022-12-16 03:48] LABS: LYMPHOCYTES % (MANUAL) 3 %; MONOCYTES % (MANUAL) 5 %; NEUTROPHILS % (MANUAL) 92 %
[2022-12-16 03:49] LABS: HYPOCHROMASIA SLIGHT
[2022-12-16] MEDS: LEVOTHYROXINE 75 MCG (LEVOTHROID) TABLET PO SCH (05:32)
[2022-12-16] MEDS: CYANOCOBALAMIN 1,000 MCG (VITAMIN B-12) TABLET PO SCH (05:33)
[2022-12-16] MEDS: RT-BUDESONIDE NEBS 0.5 MG/2ML (PULMICORT) AMP IH SCH ×2 (06:09→21:33)
[2022-12-16] MEDS: polyethylene glycoL POWDER 17 GM (MIRALAX) PACK PO SCH (07:56)
[2022-12-16] MEDS: AMIODARONE 200 MG (CORDARONE) TAB PO SCH ×2 (07:56→20:09)
[2022-12-16] MEDS: ACETAMINOPHEN 325 MG TABLET PO PRN (07:56)
[2022-12-16] MEDS: FUROSEMIDE 40 MG/4 ML INJ (LASIX) IVP SCH (07:56)
[2022-12-16] MEDS: SENNOSIDES 8.6 MG (SENOKOT) TAB PO SCH ×2 (07:56→20:09)
[2022-12-16] MEDS: DOCUSATE SODIUM 100 MG (COLACE) CAP PO SCH ×2 (07:57→20:09)
--- NOTE | 2022-12-16 08:44 | Progress Note - Cardiology ---
Cardiology SOAP Progress Note Subjective: Sitting up in bed States she is feeling much better today Breathing has improved No c/o CP or palpitations C/O gen weakness Objective: I&O/Vital Signs 12/15/22 12/15/22 12/15/22 12/15/22 21:00 21:00 21:55 22:00 Pulse 70 69 81 Resp 29 18 19 B/P (MAP) 126/67 (86) 126/67 (86) 135/60 (85) Pulse Ox 97 98 97 97 O2 Delivery High Flow N/C High Flow N/C High Flow N/C High Flow N/C O2 Flow Rate 4.00 4.00 4.00 4.00 12/15/22 12/15/22 12/15/22 12/16/22 23:00 23:55 23:55 00:00 Temp 36.7 Pulse 74 68 70 Resp 11 14 11 B/P (MAP) 126/62 (83) 110/54 (72) Pulse Ox 95 91 91 91 O2 Delivery High Flow N/C High Flow N/C High Flow N/C High Flow N/C O2 Flow Rate 4.00 4.00 4.00 4.00 12/16/22 12/16/22 12/16/22 12/16/22 00:26 01:00 02:00 02:55 Pulse 75 73 85 Resp 12 22 B/P (MAP) 144/69 (94) 145/74 (97) Pulse Ox 94 92 95 O2 Delivery High Flow N/C High Flow N/C High Flow N/C O2 Flow Rate 4.00 4.00 4.00 12/16/22 12/16/22 12/16/22 12/16/22 03:00 04:00 04:00 05:00 Temp 36.2 Pulse 70 66 65 Resp 15 12 B/P (MAP) 152/75 (100) 133/62 (85) 138/64 (88) Pulse Ox 99 94 94 90 O2 Delivery High Flow N/C High Flow N/C High Flow N/C High Flow N/C O2 Flow Rate 4.00 4.00 4.00 4.00 12/16/22 12/16/22 12/16/22 12/16/22 06:00 06:10 06:18 06:37 Pulse 75 Resp 16 B/P (MAP) 160/79 (106) Pulse Ox 96 93 94 O2 Delivery High Flow N/C High Flow N/C High Flow N/C High Flow N/C O2 Flow Rate 4.00 4.00 3.00 3.00 12/16/22 12/16/22 07:00 07:26 Temp 36.5 Pulse 72 12/16/22 00:00 Intake Total 800 ml Output Total 2250 ml Balance -1450 ml Weight (Pounds): 157 Weight (Ounces): 0.9 Weight (Calculated Kilograms): 71.219916 Constitutional: AAO x 3, well-developed, well-nourished Respiratory: No accessory muscle use, No respiratory distress; other (diminished lower lobes bilat) Cardiovascular: irregularly irregular; No JVD; S1 and S2 Gastrointestional: No tender; soft; No guarding; audible bowel sounds Extremities: No swelling, No clubbing, No cyanosis; no lower extremity edema bilateral Neurologic/Psychiatric: other (moves all extremities) Skin: No rash on exposed areas, No ulcerations on exposed areas Results/Procedures: Labs Laboratory Tests 12/16/22 03:00: White Blood Count 16.5H, Red Blood Count 3.85, Hemoglobin 10.9L, Hematocrit 35, Mean Corpuscular Volume 90, Mean Corpuscular Hemoglobin 28, Mean Corpuscular Hemoglobin Concent 32, Red Cell Distribution Width 13.8, Platelet Count 325, Mean Platelet Volume 8.9L, Immature Granulocyte % (Auto) 1, Neutrophils (%) (Auto) 91H, Lymphocytes (%) (Auto) 3L, Monocytes (%) (Auto) 5, Eosinophils (%) (Auto) 0, Basophils (%) (Auto) 0, Neutrophils # (Auto) 15.1H, Lymphocytes # (Auto) 0.5L, Monocytes # (Auto) 0.8, Eosinophils # (Auto) 0.0, Basophils # (Auto) 0.0, Immature Granulocyte # (Auto) 0.1, Neutrophils % (Manual) 92, Lymphocytes % (Manual) 3, Monocytes % (Manual) 5, Hypochromasia SLIGHT, Sodium Level 137, Potassium Level 4.2, Chloride Level 94L, Carbon Dioxide Level 34H, Anion Gap 9, Blood Urea Nitrogen 36H, Creatinine 0.78, Estimat Glomerular Filtration Rate 76, BUN/Creatinine Ratio 46, Glucose Level 110H, Calcium Level 9.4, Corrected Calcium 10.0, Phosphorus Level 2.8, Magnesium Level 2.1, Total Bilirubin 0.8, Aspartate Amino Transf (AST/SGOT) 19, Alanine Aminotransferase (ALT/SGPT) 21, Alkaline Phosphatase 71, Total Protein 5.9L, Albumin 3.3 Microbiology 12/10/22 MRSA Screen - Final, Complete MRSA not isolated 12/10/22 Blood Culture - Preliminary, Resulted No growth Laboratory Tests 12/15/22 03:39 12/16/22 03:00 A/P: Assessment: Acute on chronic diastolic CHF - MPI of 09-22-2022 showed no evidence of ischemia or infarction. No regional wall motion abnormality. MPI 56% - clinically improving ?Pneumonia - management per medical services SSS and PAF - S/P ILR implant 03-01-[address] Garnica - OAC with Xarelto - EP consult with Dr. Miller who has advised continued medical management, recommended starting Flecainide or Amiodarone per last note in Jul 2022. - ECG on 10-14-22: NSR with LBBB and PACs - Recurrent A Fib for which she underwent cardioversion on 11/16/[address] Green - was started on Flecainide 100mg BID - a-fib with RVR on EKG of 12-10-22. Flecainide d/c'd, amiodarone initiated on 12-11-22 - ext elec CV to sinus rhythm on 12-14-22 Hypothyroidism,treated with thyroid replacement therapy. Managed by PCP Hypertension, labile blood pressure Carotid art disease, history of s/p R CEA by Dr Adams on 05/26/21 at [place], [place] Mild bilat dz per u/s of 09-10-2021 Mitral regurg and mild pulm htn - Echocardiogram of 12-04-[address] Garnica showed LVEF 55-65%. LA mildly dilated. Mod to severe MR. PASP 40-45 mmHg - Echocardiogram of 09-02-20 showed LVEF 55-60%. Grade 1 diastolic dysfunction. Mild MR. AoV sclerosis with mild regurg. PASP 40-45 mmHg - sleep studies by Dr. Brown on 02-14-21 did not indicate sleep apnea - a-fib seen during the test - Echo of 12-11-22: LVEF 55-60%, mod to sev enlargement of LA, mild enlargement of RA, mild to mod MR, triv AI, L pleural eff, PASP 45-50 mmHg COPD with nocturnal hypoxemia Quit smoking when she was in her 40's Chronic, bilateral leg swelling, likely related to venous insuff Chronic scoliosis and degenerative cervical spinal disease (chronically stiff neck and shoulders) Plan: * Elec CV on 12-14-22 - maintaining SR * Continue chronic DOAC therapy * Continue amiodarone * Acute on chronic diastolic CHF - clinically improving * Monitor labs * Advise PT/OT d/t gen weakness * I discussed her CV issues with her and answered questions BRITTANEY PERRIN [facility] Dec 16, 2022 08:44
--- NOTE | 2022-12-16 08:45 | Diagnostic Imaging Report ---
EXAMINATION: Chest, 1 view. HISTORY: Pneumonia. COMPARISON: 12/15/2022. FINDINGS: There are moderate to severe bilateral interstitial and airspace opacities with small pleural effusions, similar to prior exam. No pneumothorax. Heart size is normal. IMPRESSION: Unchanged moderate to severe bilateral interstitial and airspace opacities with small pleural effusions in keeping with history of pneumonia. Dictated by: Dictated on workstation # [id number]
[2022-12-16 09:12] VITALS: BP 160/79
--- NOTE | 2022-12-16 10:27 | Progress Note ---
SANDEEP PEREZ 12/16/22 1027: Subjective Date Seen by a Provider: Dec 16, 2022 Time Seen by a Provider: 08:25 Subjective/Events-last exam Patient seen and examined at bedside this morning. She reports that she feels less short of breath today. She is complaining of some back discomfort. Denies fever/chills overnight. Denies cough. Denies any palpitations. Remains in SR during exam with rate in the 70s, occasional PVC. Review of Systems General: No Chills, No Night Sweats HEENT: No Head Aches, No Visual Changes Pulmonary: Dyspnea (improved); No Cough Cardiovascular: No: Chest Pain, Palpitations Gastrointestinal: No: Nausea, Vomiting, Abdominal Pain Genitourinary: No Dysuria, No Hematuria Neurological: No: Change in speech, Confusion Objective Exam Last Set of Vital Signs Vital Signs Date Time Temp Pulse Resp B/P (MAP) Pulse Ox O2 Delivery O2 Flow Rate FiO2 12/16/22 10:15 93 High Flow N/C 3.00 12/16/22 09:12 36.5 72 32 12/16/22 09:00 26 141/72 (95) Capillary Refill : Less Than 3 Seconds I&O Intake and Output 12/16/22 00:00 Intake Total 1375 ml Output Total 3875 ml Balance -2500 ml Intake Oral 1325 ml IV Total 50 ml Output Urine Total 3875 ml General: Alert, Oriented X3, Cooperative HEENT: Atraumatic, EOMI Neck: Supple Lungs: Other Heart: Regular Rate, Normal S1, Normal S2 Abdomen: Soft, No Tenderness Extremities: No Edema (maybe 1+ bilaterally, much improved from admission), Normal Pulses Psych/Mental Status: Mental Status NL, Mood NL Results Lab Laboratory Tests 12/16/22 03:00: White Blood Count 16.5H, Red Blood Count 3.85, Hemoglobin 10.9L, Hematocrit 35, Mean Corpuscular Volume 90, Mean Corpuscular Hemoglobin 28, Mean Corpuscular Hemoglobin Concent 32, Red Cell Distribution Width 13.8, Platelet Count 325, Mean Platelet Volume 8.9L, Immature Granulocyte % (Auto) 1, Neutrophils (%) (Auto) 91H, Lymphocytes (%) (Auto) 3L, Monocytes (%) (Auto) 5, Eosinophils (%) (Auto) 0, Basophils (%) (Auto) 0, Neutrophils # (Auto) 15.1H, Lymphocytes # (Auto) 0.5L, Monocytes # (Auto) 0.8, Eosinophils # (Auto) 0.0, Basophils # (Auto) 0.0, Immature Granulocyte # (Auto) 0.1, Neutrophils % (Manual) 92, Lymphocytes % (Manual) 3, Monocytes % (Manual) 5, Hypochromasia SLIGHT, Sodium Level 137, Potassium Level 4.2, Chloride Level 94L, Carbon Dioxide Level 34H, Anion Gap 9, Blood Urea Nitrogen 36H, Creatinine 0.78, Estimat Glomerular Filtration Rate 76, BUN/Creatinine Ratio 46, Glucose Level 110H, Calcium Level 9.4, Corrected Calcium 10.0, Phosphorus Level 2.8, Magnesium Level 2.1, Total Bilirubin 0.8, Aspartate Amino Transf (AST/SGOT) 19, Alanine Aminotransferase (ALT/SGPT) 21, Alkaline Phosphatase 71, Total Protein 5.9L, Albumin 3.3 Microbiology 12/10/22 MRSA Screen - Final, Complete MRSA not isolated 12/10/22 Blood Culture - Preliminary, Resulted No growth Assessment/Plan Assessment/Plan Assess & Plan/Chief Complaint Acute exacerbation of CHF with myopathy Acute hypoxic hypercapneic respiratory failure requiring bipap Lower extremity edema COPD exacerbation Weaned off bipap now on nasal cannula, continue oxygen supplementation 40mg IV lasix daily, monitor urine output fluid restriction monitor kidney function and urine output, normal BUN and creatinine as of now Continue duonebs and decadron Afib with RVR S/P cardioversion Cardiology consulted appreciate recs Tele ICU consulted and appreciate recs Was on cardizem drip switched to amiodarone has been on flecanaide in the past, failed continue telemetry monitoring Successful cardioversion on 12/14 remains in SR Rate improved Oral anticoagulation wth xarelto 15mg daily HAP bibasilar infiltrates present on CXR finished cefepime yesterday Normal WBC count Lactic acid normal at 1.05 Hypothyroidism Anxiety xanax prn HTN blood pressure at acceptable range now, continue to monitor Diet- regular DVT ppx- anticoagulated w xarelto Code status- full move to 4th floor Clinical Quality Measures Admission Status Admission Dx Acute exacerbation of CHF Acute respiratory distress requiring bipap Lower extremity edema COPD exacerbation Weaned off bipap now on nasal cannula, continue oxygen supplementation 40mg IV lasix daily, monitor urine output fluid restriction monitor kidney function and urine output, normal BUN and creatinine as of now Continue duonebs and decadron Afib with RVR Cardiology consulted appreciate recs Tele ICU consulted and appreciate recs Was on cardizem drip switched to amiodarone has been on flecanaide in the past, failed continue telemetry monitoring Rate improved Echo today Oral anticoagulation wth xarelto 15mg daily Possible CAP bibasilar infiltrates present on CXR Cefepime 1gm and Vanc 1gm Normal WBC count Lactic acid normal at 1.05 Hypothyroidism HTN blood pressure at acceptable range now, continue to monitor Diet- regular DVT ppx- anticoagulated w xarelto Code status- full MELINA BEAUCHAMP DO 12/16/221956: Supervisory-Addendum Brief Verification & Attestation Participated in pt care: history, MDM, physical Personally performed: exam, history, MDM, supervision of care Care discussed with: Medical Student Procedures: n/a Results interpretation: Verified all documentation Verification and Attestation of Medical Student E/M Service A medical student performed and documented this service in my presence. I reviewed and verified all information documented by the medical student and made modifications to such information, when appropriate. I personally performed the physical exam and medical decision making. Melina Beauchamp Dec 16, 2022,19:57 SANDEEP PEREZ Dec 16, 2022 10:27 MELINA BEAUCHAMP DO Dec 16, 2022 19:57
--- NOTE | 2022-12-16 12:56 | Progress Note - Cardiology ---
Cardiology SOAP Progress Note Subjective: Shortness of breath improving No cp or palp or syncope No n/v/d Gen weakness and malaise present No focal weakness No leg swelling Objective: I&O/Vital Signs 12/16/22 12/16/22 12/16/22 12/16/22 01:00 02:00 02:55 03:00 Pulse 73 85 70 Resp 12 22 B/P (MAP) 144/69 (94) 145/74 (97) 152/75 (100) Pulse Ox 94 92 95 99 O2 Delivery High Flow N/C High Flow N/C High Flow N/C High Flow N/C O2 Flow Rate 4.00 4.00 4.00 4.00 12/16/22 12/16/22 12/16/22 12/16/22 04:00 04:00 05:00 06:00 Temp 36.2 Pulse 66 65 75 Resp 15 12 16 B/P (MAP) 133/62 (85) 138/64 (88) 160/79 (106) Pulse Ox 94 94 90 96 O2 Delivery High Flow N/C High Flow N/C High Flow N/C High Flow N/C O2 Flow Rate 4.00 4.00 4.00 4.00 12/16/22 12/16/22 12/16/22 12/16/22 06:10 06:18 06:37 07:00 Pulse 77 Resp 20 B/P (MAP) 153/79 (103) Pulse Ox 93 94 93 O2 Delivery High Flow N/C High Flow N/C High Flow N/C High Flow N/C O2 Flow Rate 4.00 3.00 3.00 4.00 12/16/22 12/16/22 12/16/22 12/16/22 07:00 07:26 08:00 08:00 Temp 36.5 Pulse 72 66 Resp 20 B/P (MAP) 135/68 (90) Pulse Ox 95 94 O2 Delivery High Flow N/C High Flow N/C O2 Flow Rate 3.00 3.00 12/16/22 12/16/22 12/16/22 12/16/22 09:00 09:12 10:00 10:15 Temp 36.5 Pulse 71 72 82 Resp 26 26 B/P (MAP) 141/72 (95) Pulse Ox 92 94 94 93 O2 Delivery High Flow N/C High Flow N/C High Flow N/C O2 Flow Rate 3.00 3.00 3.00 FiO2 32 12/16/22 11:00 Pulse 68 Resp 37 B/P (MAP) 100/49 (66) Pulse Ox 97 O2 Delivery High Flow N/C O2 Flow Rate 3.00 12/16/22 00:00 Intake Total 800 ml Output Total 2250 ml Balance -1450 ml Weight (Pounds): 157 Weight (Ounces): 0.9 Weight (Calculated Kilograms): 71.476598 Constitutional: AAO x 3, well-developed, well-nourished Respiratory: No accessory muscle use, No respiratory distress; other (diminished lower lobes bilat) Cardiovascular: irregularly irregular; No JVD; S1 and S2 Gastrointestional: No tender; soft; No guarding; audible bowel sounds Extremities: No swelling, No clubbing, No cyanosis; no lower extremity edema bilateral Neurologic/Psychiatric: other (moves all extremities) Skin: No rash on exposed areas, No ulcerations on exposed areas Results/Procedures: Labs Laboratory Tests 12/16/22 03:00: White Blood Count 16.5H, Red Blood Count 3.85, Hemoglobin 10.9L, Hematocrit 35, Mean Corpuscular Volume 90, Mean Corpuscular Hemoglobin 28, Mean Corpuscular Hemoglobin Concent 32, Red Cell Distribution Width 13.8, Platelet Count 325, Mean Platelet Volume 8.9L, Immature Granulocyte % (Auto) 1, Neutrophils (%) (Auto) 91H, Lymphocytes (%) (Auto) 3L, Monocytes (%) (Auto) 5, Eosinophils (%) (Auto) 0, Basophils (%) (Auto) 0, Neutrophils # (Auto) 15.1H, Lymphocytes # (Auto) 0.5L, Monocytes # (Auto) 0.8, Eosinophils # (Auto) 0.0, Basophils # (Auto) 0.0, Immature Granulocyte # (Auto) 0.1, Neutrophils % (Manual) 92, Lymphocytes % (Manual) 3, Monocytes % (Manual) 5, Hypochromasia SLIGHT, Sodium Level 137, Potassium Level 4.2, Chloride Level 94L, Carbon Dioxide Level 34H, Anion Gap 9, Blood Urea Nitrogen 36H, Creatinine 0.78, Estimat Glomerular Filtration Rate 76, BUN/Creatinine Ratio 46, Glucose Level 110H, Calcium Level 9.4, Corrected Calcium 10.0, Phosphorus Level 2.8, Magnesium Level 2.1, Total B ilirubin 0.8, Aspartate Amino Transf (AST/SGOT) 19, Alanine Aminotransferase (ALT/SGPT) 21, Alkaline Phosphatase 71, Total Protein 5.9L, Albumin 3.3 Microbiology 12/10/22 MRSA Screen - Final, Complete MRSA not isolated 12/10/22 Blood Culture - Preliminary, Resulted No growth Laboratory Tests 12/15/22 03:39 12/16/22 03:00 A/P: Assessment: Acute on chronic diastolic CHF - MPI of 09-22-2022 showed no evidence of ischemia or infarction. No regional wall motion abnormality. MPI 56% - clinically improving ?Pneumonia - management per medical services SSS and PAF - S/P ILR implant 03-01-[address] Garnica - OAC with Xarelto - EP consult with Dr. Miller who has advised continued medical management, recommended starting Flecainide or Amiodarone per last note in Jul 2022. - ECG on 10-14-22: NSR with LBBB and PACs - Recurrent A Fib for which she underwent cardioversion on 11/16/[address] Green - was started on Flecainide 100mg BID - a-fib with RVR on EKG of 12-10-22. Flecainide d/c'd, amiodarone initiated on 12-11-22 - ext elec CV to sinus rhythm on 12-14-22 Hypothyroidism,treated with thyroid replacement therapy. Managed by PCP Hypertension, labile blood pressure Carotid art disease, history of s/p R CEA by Dr Adams on 05/26/21 at [place], [place] Mild bilat dz per u/s of 09-10-2021 Mitral regurg and mild pulm htn - Echocardiogram of 12-04-[address] Garnica showed LVEF 55-65%. LA mildly dilated. Mod to severe MR. PASP 40-45 mmHg - Echocardiogram of 09-02-20 showed LVEF 55-60%. Grade 1 diastolic dysfunction. Mild MR. AoV sclerosis with mild regurg. PASP 40-45 mmHg - sleep studies by Dr. Brown on 02-14-21 did not indicate sleep apnea - a-fib seen during the test - Echo of 12-11-22: LVEF 55-60%, mod to sev enlargement of LA, mild enlargement of RA, mild to mod MR, triv AI, L pleural eff, PASP 45-50 mmHg COPD with nocturnal hypoxemia Quit smoking when she was in her 40's Chronic, bilateral leg swelling, likely related to venous insuff Chronic scoliosis and degenerative cervical spinal disease (chronically stiff neck and shoulders) Plan: * Elec CV on 12-14-22 - maintaining SR * Continue chronic DOAC therapy * Continue amiodarone * Acute on chronic diastolic CHF - clinically improving * Monitor labs * Advise PT/OT d/t gen weakness * I discussed her CV issues with her and her family and answered questions TINA BERG MD FACP FAC CCDS Dec 16, 2022 12:56
--- NOTE | 2022-12-16 14:32 | Tele-ICU Progress Note ---
Subjective Date Seen by a Provider: Dec 16, 2022 Time Seen by a Provider: 10:29 Subjective/Events-last exam (Tele-ICU Physician , Progress Note ) Service provided via interactive audio and video telecommunications E-CARE system to a patient admitted to ICU bed in [facility]. Patient is seen today due to persistent need of ICU care Available chart/ vitals / labs / Images reviewed Video assessment done using teleICU camera, rest of exam as per RN Discussed with RN Events overnight : Afebrile hemodynamically stable Respiratory - 3L I/O = Drips: Pressors- no A/P A fib RVR ( chronic , s/p ILR , s/p cardioversions 12/14 -OAC with Xarelto - cardizem gtt off , amio po Acute on chronic diastolic CHF - treat with diuretics Acute resp failure- CHF and AECOPD/ infection - on diuretics , steroid - off NIPPV last night for 1 h - as per RN report - patient did asked for it - will readress anxiety prn , try off NIPPV - on 3 L o2 now AECOPD ( nocturnal hypoxemia, PSG - neg for CONSTANZA 2020 - nebs , IV steroids - iv - ? TO PO -? DECREASE THE DOSE as per bedside MD LRTI/ Possible PNA - vanco , cefepime - FINISHED THEW COURSE Mild pulmonary hypertension,-PASP 40-45 mmHg - con diuresis Mild anemia - stable Mild hyponatremia - stable Lines : , (Central Line Necessity Reviewed) Ham: + OG: Nutrition: po Analgesia: Anxiety/ delirium na VTE Prophylaxis: xarelto Stress Ulcer Prophylaxis: na Plans in collaboration with bedside consultants and IM MDs. Discussed with RN to reach out if any questions or concerns Case and care daily discussed on multidisciplinary rounds ( RN, PharmD, Operations Planner , Respiratory Therapy, gas worker ) A total of 15 minutes of critical care time was devoted to this patient today, required to treat and/or prevent further deterioration of critical care condition ( as above ) . I am remotely monitoring this patient from another state. I am unable to do the bedside exam, and history/physical and pertinent information is taken from other notes in the computer and bedside staff. Sepsis Event Evaluation Height, Weight, BMI Height: 5'3.50" Weight: 157lbs. 0.9oz. 71.081127gd; 23.29 BMI Method: Exam Exam Patient acknowledged, consented, and participated in this virtual visit which was conducted using real time audio/video Vital Signs Date Time Temp Pulse Resp B/P (MAP) Pulse Ox O2 Delivery O2 Flow Rate FiO2 12/16/22 13:00 80 34 110/54 (72) 95 High Flow N/C 3.00 12/16/22 12:57 74 12/16/22 12:00 93 High Flow N/C 3.00 12/16/22 12:00 68 15 108/69 (82) 97 High Flow N/C 3.00 12/16/22 11:00 68 37 100/49 (66) 97 High Flow N/C 3.00 12/16/22 10:15 93 High Flow N/C 3.00 12/16/22 10:00 82 26 94 High Flow N/C 3.00 12/16/22 09:12 36.5 72 94 32 12/16/22 09:00 71 26 141/72 (95) 92 High Flow N/C 3.00 12/16/22 08:00 66 20 135/68 (90) 94 High Flow N/C 3.00 12/16/22 08:00 95 High Flow N/C 3.00 12/16/22 07:26 36.5 12/16/22 07:00 72 12/16/22 07:00 77 20 153/79 (103) 93 High Flow N/C 4.00 12/16/22 06:37 High Flow N/C 3.00 12/16/22 06:18 94 High Flow N/C 3.00 12/16/22 06:10 93 High Flow N/C 4.00 12/16/22 06:00 75 16 160/79 (106) 96 High Flow N/C 4.00 12/16/22 05:00 65 12 138/64 (88) 90 High Flow N/C 4.00 12/16/22 04:00 94 High Flow N/C 4.00 12/16/22 04:00 36.2 66 15 133/62 (85) 94 High Flow N/C 4.00 12/16/22 03:00 70 152/75 (100) 99 High Flow N/C 4.00 12/16/22 02:55 95 High Flow N/C 4.00 7/12/23 02:00 85 22 145/74 (97) 92 High Flow N/C 4.00 12/16/22 01:00 73 12 144/69 (94) 94 High Flow N/C 4.00 12/16/22 00:26 75 12/16/22 00:00 70 11 110/54 (72) 91 High Flow N/C 4.00 12/15/22 23:55 36.7 68 14 91 High Flow N/C 4.00 12/15/22 23:55 91 High Flow N/C 4.00 12/15/22 23:00 74 11 126/62 (83) 95 High Flow N/C 4.00 12/15/22 22:00 81 19 135/60 (85) 97 High Flow N/C 4.00 12/15/22 21:55 97 High Flow N/C 4.00 12/15/22 21:00 69 18 126/67 (86) 98 High Flow N/C 4.00 12/15/22 21:00 70 29 126/67 (86) 97 High Flow N/C 4.00 12/15/22 20:00 80 14 134/66 (88) 92 High Flow N/C 4.00 12/15/22 19:42 36.6 12/15/22 19:15 91 High Flow N/C 4.00 12/15/22 19:00 36.8 86 22 127/69 (88) 91 High Flow N/C 4.00 12/15/22 19:00 87 12/15/22 18:46 96 High Flow N/C 4.00 12/15/22 18:00 85 20 133/68 (89) 94 Nasal Cannula 5.00 12/15/22 17:00 77 22 117/64 (81) 91 Nasal Cannula 5.00 12/15/22 16:00 81 19 127/75 (92) 92 Nasal Cannula 5.00 12/15/22 16:00 93 High Flow N/C 4.00 12/15/22 15:44 36.8 12/15/22 15:07 98 High Flow N/C 4.00 12/15/22 15:00 69 16 129/57 (81) 97 Nasal Cannula 5.00 I & O 12/16/22 07:00 Intake Total 1475 ml Output Total 3925 ml Balance -2450 ml Height & Weight Height: 5'3.50" Weight: 157lbs. 0.9oz. 71.340379gr; 23.29 BMI Method: General Appearance: No Apparent Distress, WD/WN HEENT: PERRL/EOMI, Moist Mucous Membranes Neck: Supple Respiratory: Chest Non Tender, No Accessory Muscle Use, Decreased Breath Sounds (bases bilaterally) Cardiovascular: Regular Rate, Rhythm, Normal Peripheral Pulses, Irregularly Irregular, Tachycardia, Other (right now in NSR) Capillary Refill: Less Than 3 Seconds Gastrointestinal: normal bowel sounds, non tender, soft Extremity: No Pedal Edema (no ankle edema), Pedal Edema, Swelling, Other Neurologic/Psychiatric: Alert, Oriented x3, Normal Mood/Affect Skin: Normal Color, Warm/Dry Results Lab Laboratory Tests 12/15/22 03:39 12/16/22 03:00 Assessment/Plan Assessment/Plan 1 TOMA CORREIA MD Dec 16, 2022 14:31
--- NOTE | 2022-12-16 14:34 | Physical Therapy Evaluation ---
PT Evaluation-General Medical Diagnosis Admission Date Dec 10, 2022 at 17:24 Medical Diagnosis: CHF, Hypoxia Onset Date: Dec 10, 2022 Therapy Diagnosis Therapy Diagnosis: Gait [id number] Height/Weight Height (Feet): 5 Height (Inches): 3.50 Weight (Pounds): 157 Weight (Ounces): 0.9 Precautions Precautions/Isolations: Fall Prevention, Standard Precautions Weight Bear Status Right Lower Extremity: Right Full Weight Bearing Left Lower Extremity: Left Full Weight Bearing Referral Physician: Dr. Benjamin Reason for Referral: Evaluation/Treatment Medical History Pertinent Medical History: Atrial Fib, COPD, Heart Failure, HTN, Hypothroidism Social History Home: Single Level Current Living Status: Alone Entry Into Home: Stairs With Railing PT Steps Into Home: 4 Prior Prior Level of Function SCALE: Activities may be completed with or without assistive devices. 1-Dcrnbwwavj-yhcljfg completes the activity by him/herself with no assistance from a helper. 5-Set-up or Clean-up Assistance-helper sets up or cleans up; patient completes activity. [place] assists only prior to or following the activity. 4-Supervision or Touching Assistance-helper provides verbal cues and/or touching/steadying and/or contact guard assistance as patient completes activity. Assistance may be provided throughout the activity or intermittently. 3-Partial/Moderate Assistance-helper does LESS THAN HALF the effort. [place] lifts, holds or supports trunk or limbs, but provides less than half the effort. 2-Substantial/Maximal Assistance-helper does MORE THAN HALF the effort. [place] lifts or holds trunk or limbs and provides more than half the effort. 3-Amknvartg-giaymk does ALL the effort. Patient does none of the effort to complete the activity. Or, the assistance of 2 or more helpers is required for the patient to complete the activity. If activity was not attempted, code reason: 7-Patient Refused. 9-Not Applicable-not attempted and the patient did not perform the activity before the current illness, exacerbation or injury. 10-Not Attempted due to Environmental Limitations-(lack of equipment, weather restraints, etc.). 88-Not Attempted due to Medical Conditions or Safety Concerns. Bed Mobility: 6 Transfers (B,C,W/C): 6 Gait: 6 Stairs: 6 Indoor Mobility (Ambulation): Independent Stairs: Independent Prior Devices Use: Walker PT Evaluation-Current Subjective Patient lying supine in bed with OT in the room upon PT arrival, patient agreeable to treatment. Patient rates pain at 0/10. Objective Patient Orientation: Person, Place, Time, Situation ROM/Strength ROM Lower Extremities WFLs BLEs Strength Lower Extremities 3+/5 BLEs all planes Sensory Vision: Functional Hearing: Functional Sensation Right Lower Extremit: Intact Sensation Left Lower Extremity: Intact Transfers Roll Left to Right (QC): 3 Sit to Lying (QC): 3 Lying to Sitting/Side of Bed(Q: 3 Sit to Stand (QC): 2 Chair/Djb-dc-Lgerc Xfer(QC): 3 Gait Does the Patient Walk?: Yes Mode of Locomotion: Walk Anticipated Mode of Locomotion: Walk Distance: 2' Gait Assistive Device: FWW Balance Sitting Static: Fair Sitting Dynamic: Fair Standing Static: Poor Standing Dynamic: Poor Assessment/Needs Patient requires frequent verbal cues throughout treatment for safety, progression, proper use of FWW. Patient performs all bed mobility and transfers with mod to max A. Patient ambulates 2 -3 feet with FWW, with mod A very slowly and unsafely to the chair. Patient requires mod A frequently to avoid falling backwards. Patient in chair post treatment with all needs met, nursing notified, call light in hand. Rehab Potential: Fair PT Factorer Goals Senior Care Goals PT Senior Care Goals Time Frame: Jan 30, 2023 Roll Left & Right (QC): 6 Sit to Lying (QC): 6 Lying-Sitting on Side/Bed(QC): 6 Sit to Stand (QC): 6 Chair/Dzc-io-Cdatt Xfer(QC): 6 Does the Patient Walk: Yes Walk 10 feet (QC): 4 Walk 50ft with 2 Turns (QC): 4 Walk 150 ft (QC): 4 PT Plan Problem List Problem List: Activity Tolerance, Functional Strength, Safety, Balance, Gait, Transfer, Bed Mobility, ROM Treatment/Plan Treatment Plan: Continue Plan of Care Treatment Plan: Bed Mobility, Education, Functional Activity Samy, Functional Strength, Group Therapy, Gait, Safety, Therapeutic Exercise, Transfers Treatment Duration: Jan 30, 2023 Frequency: 6 times per week Estimated Hrs Per Day: .25 hour per day Patient and/or Family Agrees t: Yes Safety Risks/Education Patient Education: Gait Training, Transfer Techniques Teaching Recipient: Patient Teaching Methods: Demonstration, Discussion Response to Teaching: Reinforcement Needed Time Time In: 1357 Time Out: 1412 DATE: Dec 16, 2022 Total Billed Treatment Time: 15 Total Billed Treatment Visit, TRAVIS HEWITT PT Dec 16, 2022 14:34
--- NOTE | 2022-12-16 14:35 | Occupational Therapy Eval ---
OT Evaluation-General/PLF Medical Diagnosis Admission Date Dec 10, 2022 at 17:24 Medical Diagnosis: AFIB RVR, HYPOXIA, CHF Onset Date: Dec 10, 2022 Therapy Diagnosis Therapy Diagnosis: weakness Height/Weight Height (Feet): 5 Height (Inches): 3.50 Weight (Pounds): 157 Weight (Ounces): 0.9 Precautions Precautions/Isolations: Fall Prevention, Standard Precautions Weight Bear Status Weight Bearing Restriction: Full Weight Bearing Location Restriction: LE Bilateral, UE Bilateral Referral Referral Reason: Activity Tolerance, Self Care, Evaluation/Treatment Medical History Pertinent Medical History: Atrial Fib, COPD, Heart Failure, HTN, Hypothroidism Additional Medical History Patient with recent hospitalization 11/08/22 with a transfer to ARU 11/09/22 through 11/18/22. Discharge from ARU independent w/ ADLS to home. 11/23 per chart SW mailed list of SNF and resource for additional assistance at home to patient pending further therapy needs w/i [address] Poole d/t inability to manage being home. Direct admit to SNF [facility]. Current History 82yo F with past medical hx of COPD, CHF, HLD, hypothyroidism, afib, and carotid stenosis who presented to the ED on 12/10 after presenting to her primary care provider with a 1 week history of worsening shortness of breath. She was found to be in afib w RVR and showed bibasilar infiltrates on CXR. Her BNP was elevated to 652. She was placed on bipap overnight with improvement in her oxygenation. She was admitted to the ICU for management of her afib w RVR and volume overload. This morning she is off bipap now on nasal cannula and reports breathing better and feeling less short of breath. Her symptoms began about 1 week ago with shortness of breath requiring her to wear oxygen at all times when she usually wears it at night only. She also noticed some LE swelling. She recalls being around a sick contact at her facility . She never felt any fever or upper respiratory infection symptoms. She does not any palpitations or chest pain. She has gone into RVR in the past and does not notice when she does. No N/V/D or fever/chills. Reviewed History: Yes Social History Home: Single Level Current Living Status: Alone ADL-Prior Level of Function SCALE: Activities may be completed with or without assistive devices. 9-Vfkeillaox-weovhbb completes the activity by him/herself with no assistance from a helper. 5-Set-up or Clean-up Assistance-helper sets up or cleans up; patient completes activity. [place] assists only prior to or following the activity. 4-Supervision or Touching Assistance-helper provides verbal cues and/or touching/steadying and/or contact guard assistance as patient completes activity. Assistance may be provided throughout the activity or intermittently. 3-Partial/Moderate Assistance-helper does LESS THAN HALF the effort. [place] lifts, holds or supports trunk or limbs, but provides less than half the effort. 2-Substantial/Maximal Assistance-helper does MORE THAN HALF the effort. [place] lifts or holds trunk or limbs and provides more than half the effort. 9-Lcioarewb-xdbnek does ALL the effort. Patient does none of the effort to complete the activity. Or, the assistance of 2 or more helpers is required for the patient to complete the activity. If activity was not attempted, code reason: 7-Patient Refused. 9-Not Applicable-not attempted and the patient did not perform the activity before the current illness, exacerbation or injury. 10-Not Attempted due to Environmental Limitations-(lack of equipment, weather restraints, etc.). 88-Not Attempted due to Medical Conditions or Safety Concerns. Self Care: Independent Functional Cognition: Independent OT Current Status Subjective Agreeable to OT, friend present in room and patient is unable to recall events leading to ICU admit from previous discharge 11/18/22 Mental Status/Objective Patient Orientation: Person, Confused, Place Attachments: Ham Catheter (to beDC'd), Telemetry (to be DC'd) Current Glasses/Contacts: Yes Hand Dominance: Right Upper Extremity ROM BUE ROM WFLS Upper Extremity Strength +3/5 grossly ADL-Treatment Eating (QC): 6 Oral Hygiene (QC): 6 Shower/Bathe Self (QC): 7 Upper Body Dressing (QC): 4 Lower Body Dressing (QC): 4 On/Off Footwear (QC): 5 Toileting Hygiene (QC): 4 Education OT Patient Education: Correct positioning, Exercise program, Modified ADL techniques, Progress toward Goal/Update tx plan, Purpose of tx/functional activities, Reviewed precautions, Rehab process, Safety issues, Transfer techniques Teaching Recipient: Patient Teaching Methods: Demonstration, Discussion Response to Teaching: Verbalize Understanding, Reinforcement Needed OT Conduit Reamer Operator Goals Conduit Reamer Operator Goals Eating (QC): 6 Oral Hygiene (QC): 6 Toileting Hygiene (QC): 6 Shower/Bathe Self (QC): 5 Upper Body Dressing (QC): 6 Lower Body Dressing (QC): 6 On/Off Footwear (QC): 6 1=Demonstrate adherence to instructed precautions during ADL tasks. 2=Patient will verbalize/demonstrate understanding of assistive devices/modifications for ADL. 3=Patient will improve strength/tolerance for activity to enable patient to perform ADL's. OT Education/Plan Problem List/Assessment Assessment: Decreased Activ Tolerance, Decreased Safety Aware, Decreased UE Strength, Impaired Coordination, Impaired Funct Balance, Impaired I ADL's, Impaired Self-Care Skills Discharge Recommendations Plan/Recommendations: Continue POC Treatment Plan/Plan of Care Treatment,Training & Education: Yes Patient would benefit from OT for education, treatment and training to promote independence in ADL's, mobility, safety and/or upper extremity function for ADL's. Plan of Care: ADL Retraining, Functional Mobility, Group Exercise/Act as Ind, UE Funct Exercise/Act Treatment Duration: Dec 18, 2022 Frequency: 3 times per week (3-5 times per week) Estimated Hrs Per Day: .25 hour per day Agreement: Yes Rehab Potential: Guarded Time Start Time: 13:15 Stop Time: 13:35 DATE: Dec 16, 2022 Total Time Billed (hr/min): 20 Billed Treatment Time EVM 20 min FELICIANO JOHNSON OT Dec 16, 2022 14:35
[2022-12-16 16:43] VITALS: BP 126/60
[2022-12-16] MEDS: RIVAROXABAN 15 MG TABLET (XARELTO) PO SCH (17:08)
[2022-12-16 19:22] VITALS: BP 93/55
[2022-12-16 20:08] VITALS: BP 109/56
[2022-12-16] MEDS: ASPIRIN E.C. 81 MG (ECOTRIN) TAB PO SCH (20:09)
[2022-12-16] MEDS: SERTRALINE 50 MG (ZOLOFT) TABLET PO SCH (20:09)
[2022-12-16 23:56] VITALS: BP 110/62
[2022-12-17] MEDS: ACETAMINOPHEN 325 MG TABLET PO PRN (02:33)
[2022-12-17 03:11] VITALS: BP 135/62
[2022-12-17] MEDS: RT-ALBUTEROL/IPRATROPIUM 3 ML (DUONEB) VIAL INH SCH ×4 (04:17→19:39)
[2022-12-17] MEDS: CYANOCOBALAMIN 1,000 MCG (VITAMIN B-12) TABLET PO SCH (05:33)
[2022-12-17] MEDS: predniSONE 20 MG TAB PO SCH (05:33)
[2022-12-17] MEDS: LEVOTHYROXINE 88 MCG (LEVOTHORID) TAB PO SCH (05:33)
[2022-12-17 05:41] LABS: BASOPHILS % (AUTO) 0 % (0-10); EOSINOPHILS # (AUTO) 0.3 10^3/uL (0.0-0.3); EOSINOPHILS % (AUTO) 2 % (0-10); HEMATOCRIT 32 % (35-52); HEMOGLOBIN 10.4 g/dL (11.5-16.0); LYMPHOCYTES # (AUTO) 1.7 10^3/uL (1.0-4.0); LYMPHOCYTES % (AUTO) 12 % (12-44); MEAN CORPUSCULAR HEMOGLOBIN 29 pg (25-34); MEAN CORPUSCULAR HGB CONC 32 g/dL (32-36); MEAN CORPUSCULAR VOLUME 90 fL (80-99); MEAN PLATELET VOLUME 8.8 fL (9.0-12.2); MONOCYTES # (AUTO) 1.1 10^3/uL (0.0-1.0); MONOCYTES % (AUTO) 8 % (0-12); NEUTROPHILS # (AUTO) 11.2 10^3/uL (1.8-7.8); NEUTROPHILS % (AUTO) 78 % (42-75); PLATELET COUNT 292 10^3/uL (130-400); WHITE BLOOD COUNT 14.4 10^3/uL (4.3-11.0)
[2022-12-17 05:51] LABS: ALBUMIN 3.2 GM/DL (3.2-4.5)
[2022-12-17 05:52] LABS: POTASSIUM 3.2 MMOL/L (3.6-5.0)
[2022-12-17 05:53] LABS: CALCIUM 8.8 MG/DL (8.5-10.1)
[2022-12-17 05:54] LABS: TOTAL PROTEIN 5.6 GM/DL (6.4-8.2)
[2022-12-17 05:56] LABS: BILIRUBIN,TOTAL 0.9 MG/DL (0.1-1.0)
[2022-12-17 05:58] LABS: CREATININE SERUM 0.83 MG/DL (0.60-1.30)
[2022-12-17 07:31] VITALS: BP 138/60
[2022-12-17] MEDS: AMIODARONE 200 MG (CORDARONE) TAB PO SCH ×2 (09:16→19:59)
[2022-12-17] MEDS: DOCUSATE SODIUM 100 MG (COLACE) CAP PO SCH ×2 (09:17→19:59)
[2022-12-17] MEDS: FUROSEMIDE 40 MG/4 ML INJ (LASIX) IVP SCH (09:17)
[2022-12-17] MEDS: SENNOSIDES 8.6 MG (SENOKOT) TAB PO SCH ×2 (09:17→19:59)
[2022-12-17] MEDS: polyethylene glycoL POWDER 17 GM (MIRALAX) PACK PO SCH (09:21)
[2022-12-17] MEDS: RT-BUDESONIDE NEBS 0.5 MG/2ML (PULMICORT) AMP IH SCH ×2 (09:54→19:39)
--- NOTE | 2022-12-17 10:12 | Physical Therapy Daily Note ---
PT Daily Note-Current Subjective Patient agrees to PT. Pain Section J - Health Conditions 1. Rarely or not at all 2. Occasionally 3. Frequently 4. Almost constantly 8. Unable to answer Pain Effect on Sleep: 1 Pain Interference with Therapy: 1 Pain Interference w/Day-to-Day: 1 Mental Status Attachments: Oxygen Transfers SCALE: Activities may be completed with or without assistive devices. 4-Brdozidhue-zugyywr completes the activity by him/herself with no assistance from a helper. 5-Set-up or Clean-up Assistance-helper sets up or cleans up; patient completes activity. [place] assists only prior to or following the activity. 4-Supervision or Touching Assistance-helper provides verbal cues and/or touching/steadying and/or contact guard assistance as patient completes activity. Assistance may be provided throughout the activity or intermittently. 3-Partial/Moderate Assistance-helper does LESS THAN HALF the effort. [place] lifts, holds or supports trunk or limbs, but provides less than half the effort. 2-Substantial/Maximal Assistance-helper does MORE THAN HALF the effort. [place] lifts or holds trunk or limbs and provides more than half the effort. 5-Ykqobvitv-ovexsb does ALL the effort. Patient does none of the effort to complete the activity. Or, the assistance of 2 or more helpers is required for the patient to complete the activity. If activity was not attempted, code reason: 7-Patient Refused. 9-Not Applicable-not attempted and the patient did not perform the activity before the current illness, exacerbation or injury. 10-Not Attempted due to Environmental Limitations-(lack of equipment, weather restraints, etc.). 88-Not Attempted due to Medical Conditions or Safety Concerns. Lying to Sitting/Side of Bed(Q: 4 Sit to Stand (QC): 4 Chair/Vol-he-Wrofg Xfer(QC): 4 SBA with all mobility Weight Bearing Right Lower Extremity: Right Full Weight Bearing Left Lower Extremity: Left Full Weight Bearing Gait Training Distance: 300' Walk 10 feet (QC): 4 Walk 50 ft with 2 Turns(QC): 4 Walk 150 ft (QC): 4 Gait Assistive Device: FWW SBA/steady gait sequence with no deviation Assessment It appears, when patient is distracted, she is able to perform all mobility safely and SBA . Patient is up in recliner with needs met. PT Short Term Goals Short Term Goals Time Frame: Dec 17, 2022 PT Assembler Fitter Goals Assembler Fitter Goals PT Alf Goals Time Frame: Jan 30, 2023 Roll Left & Right (QC): 6 Sit to Lying (QC): 6 Lying-Sitting on Side/Bed(QC): 6 Sit to Stand (QC): 6 Chair/Ygw-ix-Yscpr Xfer(QC): 6 Does the Patient Walk: Yes Walk 10 feet (QC): 4 Walk 50ft with 2 Turns (QC): 4 Walk 150 ft (QC): 4 PT Plan Treatment/Plan Treatment Plan: Continue Plan of Care Treatment Plan: Bed Mobility, Education, Functional Activity Samy, Functional Strength, Group Therapy, Gait, Safety, Therapeutic Exercise, Transfers Treatment Duration: Jan 30, 2023 Frequency: 6 times per week Estimated Hrs Per Day: .25 hour per day Patient and/or Family Agrees t: Yes Time Time In: 925 Time Out: 944 DATE: Dec 17, 2022 Total Billed Treatment Time: 19 Total Billed Treatment 1 visit FA 19 min MIRIAM JEWELL PT Dec 17, 2022 10:12
--- NOTE | 2022-12-17 10:49 | Occupational Ther Daily Note ---
OT Current Status-Daily Note Subjective High anxiety level and inconsistent report of patient physical agility and mental coping skills to live alone. Mental Status/Objective Patient Orientation: Person, Confused, Place, Situation ADL-Treatment Patient applies socks, EOB, adjusts hospital gown in standing. Therapy Code Descriptions/Definitions Functional [place] Measure: 0=Not Assessed/NA 4=Minimal Assistance 1=Total Assistance 5=Supervision or Setup 2=Maximal Assistance 6=Modified [place] 3=Moderate Assistance 7=Complete IndependenceSCALE: Activities may be completed with or without assistive devices. 8-Qkyukijhzx-efafcrx completes the activity by him/herself with no assistance from a helper. 5-Set-up or Clean-up Assistance-helper sets up or cleans up; patient completes activity. [place] assists only prior to or following the activity. 4-Supervision or Touching Assistance-helper provides verbal cues and/or touching/steadying and/or contact guard assistance as patient completes activity. Assistance may be provided throughout the activity or intermittently. 3-Partial/Moderate Assistance-helper does LESS THAN HALF the effort. [place] lifts, holds or supports trunk or limbs, but provides less than half the effort. 2-Substantial/Maximal Assistance-helper does MORE THAN HALF the effort. [place] lifts or holds trunk or limbs and provides more than half the effort. 6-Whytbcobz-zkwwbu does ALL the effort. Patient does none of the effort to complete the activity. Or, the assistance of 2 or more helpers is required for the patient to complete the activity. If activity was not attempted, code reason: 7-Patient Refused. 9-Not Applicable-not attempted and the patient did not perform the activity before the current illness, exacerbation or injury. 10-Not Attempted due to Environmental Limitations-(lack of equipment, weather restraints, etc.). 88-Not Attempted due to Medical Conditions or Safety Concerns. Eating (QC): 6 Oral Hygiene (QC): 5 Upper Body Dressing (QC): 5 Lower Body Dressing (QC): 5 On/Off Footwear: 5 Toileting Hygiene (QC): 5 Toilet Transfer (QC): 5 Patient has difficulty talking and performing tasks simultaneously. Required redirection to complete functional tasks. Education OT Patient Education: Correct positioning, Modified ADL techniques, Progress toward Goal/Update tx plan, Purpose of tx/functional activities, Reviewed precautions, Rehab process, Safety issues, Transfer techniques, Use of adapted equipment Teaching Recipient: Patient Teaching Methods: Demonstration Response to Teaching: Verbalize Understanding, Reinforcement Needed OT Shelter Goals Shelter Goals Eating (QC): 6 Oral Hygiene (QC): 6 Toileting Hygiene (QC): 6 Shower/Bathe Self (QC): 5 Upper Body Dressing (QC): 6 Lower Body Dressing (QC): 6 On/Off Footwear (QC): 6 1=Demonstrate adherence to instructed precautions during ADL tasks. 2=Patient will verbalize/demonstrate understanding of assistive devices/modifications for ADL. 3=Patient will improve strength/tolerance for activity to enable patient to perform ADL's. OT Education/Plan Problem List/Assessment Assessment: Decreased Activ Tolerance, Decreased Safety Aware, Decreased UE Strength, Impaired Cognition, Impaired Self-Care Skills Discharge Recommendations Plan/Recommendations: Continue POC Patient/Family Goals Needs higher complexity goals for IADLS at home, discussed transition to RYAN possibility Treatment Plan/Plan of Care Treatment,Training & Education: Yes Patient would benefit from OT for education, treatment and training to promote independence in ADL's, mobility, safety and/or upper extremity function for ADL's. Plan of Care: ADL Retraining, Functional Mobility, Group Exercise/Act as Ind, UE Funct Exercise/Act Treatment Duration: Dec 18, 2022 Frequency: 3 times per week (3-5 times per week) Estimated Hrs Per Day: .25 hour per day Agreement: Yes Rehab Potential: Guarded Time Start Time: 09:25 Stop Time: 09:44 DATE: Dec 17, 2022 Total Time Billed (hr/min): 19 Billed Treatment Time ADL 19 min FELICIANO JOHNSON OT Dec 17, 2022 10:49
[2022-12-17 11:30] VITALS: BP 112/65
--- NOTE | 2022-12-17 11:43 | Progress Note ---
Subjective Date Seen by a Provider: Dec 17, 2022 Time Seen by a Provider: 11:00 Subjective/Events-last exam Patient doing a lot better Requiring catheter due to urinary retention Walking 400 feet No falls No shortness of breath Telemetry remains Review of Systems General: Fatigue, Malaise Pulmonary: Dyspnea Objective Exam Last Set of Vital Signs Vital Signs Date Time Temp Pulse Resp B/P (MAP) Pulse Ox O2 Delivery O2 Flow Rate FiO2 12/17/22 11:30 36.9 70 18 112/65 (81) 94 High Flow N/C 2.00 12/16/22 09:12 32 Capillary Refill : Less Than 3 Seconds I&O Intake and Output 12/17/22 00:00 Intake Total 2245 ml Output Total 2400 ml Balance -155 ml Intake Oral 2025 ml IV Total 220 ml Output Urine Total 2400 ml Bladder Scan Volume Amount 258 ml # Bowel Movements 1 General: Alert, Oriented X3, Cooperative, No Acute Distress Lungs: Clear to Auscultation, Normal Air Movement Heart: Regular Rate, Normal S1, Normal S2, No Murmurs Psych/Mental Status: Mental Status NL, Mood NL Results Lab Laboratory Tests 12/17/22 05:28: White Blood Count 14.4H, Red Blood Count 3.61L, Hemoglobin 10.4L, Hematocrit 32L , Mean Corpuscular Volume 90, Mean Corpuscular Hemoglobin 29, Mean Corpuscular Hemoglobin Concent 32, Red Cell Distribution Width 13.9, Platelet Count 292, Mean Platelet Volume 8.8L, Immature Granulocyte % (Auto) 1, Neutrophils (%) (Auto) 78H, Lymphocytes (%) (Auto) 12, Monocytes (%) (Auto) 8, Eosinophils (%) ( Auto) 2, Basophils (%) (Auto) 0, Neutrophils # (Auto) 11.2H, Lymphocytes # (Auto) 1.7, Monocytes # (Auto) 1.1H, Eosinophils # (Auto) 0.3, Basophils # (Auto) 0.0, Immature Granulocyte # (Auto) 0.1, Sodium Level 138, Potassium Level 3.2L, Chloride Level 93L, Carbon Dioxide Level 35H, Anion Gap 10, Blood Urea Nitrogen 30H, Creatinine 0.83, Estimat Glomerular Filtration Rate 70, BUN/Crea tinine Ratio 36, Glucose Level 95, Calcium Level 8.8, Corrected Calcium 9.4, Magnesium Level 2.0, Total Bilirubin 0.9, Aspartate Amino Transf (AST/SGOT) 17, Alanine Aminotransferase (ALT/SGPT) 18, Alkaline Phosphatase 66, Total Protein 5.6L, Albumin 3.2 Microbiology 12/10/22 MRSA Screen - Final, Complete MRSA not isolated 12/10/22 Blood Culture - Final, Complete No growth Assessment/Plan Assessment/Plan Assess & Plan/Chief Complaint Assessment: Acute hypoxic hypercapneic resp failure requiring biPAP Congestive heart failure myopathy HAP Atrial fibrillation s/p cardioversion 11/16/22 and again 12/14/22 Oral anticoagulation Hypothyroidism Hypertension Falls Recent left leg pain due to fall with hematoma from oral anticoagulation Orthostasis with near syncope on 11/11/22 Left-sided sciatica Anxiety Frail status Urinary retention requiring catheterizations Plan: Continue MedSurg care Cardioversion and TIANNA done Xanax Diagnosis/Problems Diagnosis/Problems (1) Chronic heart failure with preserved ejection fraction (HFpEF) (2) Respiratory distress Status: Acute (3) Pulmonary hypertension (4) Mitral regurgitation (5) Primary hypertension (6) Atrial fibrillation status post cardioversion (7) Paroxysmal atrial fibrillation Clinical Quality Measures Admission Status Admission Dx Assessment: Acute hypoxic hypercapneic resp failure requiring biPAP Congestive heart failure myopathy HAP Atrial fibrillation s/p cardioversion 11/16/22 Oral anticoagulation Hypothyroidism Hypertension Falls Recent left leg pain due to fall with hematoma from oral anticoagulation Orthostasis with near syncope on 11/11/22 Left-sided sciatica ELVA BEAUCHAMP DO Dec 17, 2022 11:43
[2022-12-17] MEDS ORDERED: KCL 20 MEQ TAB (K-DUR) PO NR (12:00)
[2022-12-17 16:08] VITALS: BP 116/53
--- NOTE | 2022-12-17 16:53 | Progress Note - Cardiology ---
Cardiology SOAP Progress Note Subjective: Gen weakness and malaise present No focal weakness No n/v/d No cp or palp or syncope No leg swelling Shortness of breath is better Objective: I&O/Vital Signs 12/17/22 12/17/22 12/17/22 12/17/22 07:31 07:42 08:00 09:54 Temp 36.4 Pulse 79 67 Resp 16 B/P (MAP) 138/60 (86) Pulse Ox 96 94 O2 Delivery Nasal Cannula High Flow N/C High Flow N/C O2 Flow Rate 2.50 3.00 2.50 12/17/22 12/17/22 12/17/22 12/17/22 10:03 11:30 15:53 16:08 Temp 36.9 37.1 Pulse 70 68 Resp 18 17 B/P (MAP) 112/65 (81) 116/53 (74) Pulse Ox 94 95 94 O2 Delivery High Flow N/C High Flow N/C High Flow N/C Nasal Cannula O2 Flow Rate 2.50 2.00 2.50 2.50 12/17/22 00:00 Intake Total 990 ml Output Total 1250 ml Balance -260 ml Weight (Pounds): 157 Weight (Ounces): 0.9 Weight (Calculated Kilograms): 71.111182 Constitutional: AAO x 3, well-developed, well-nourished Respiratory: No accessory muscle use, No respiratory distress; other (diminish ed lower lobes bilat) Cardiovascular: irregularly irregular; No JVD; S1 and S2 Gastrointestional: No tender; soft; No guarding; audible bowel sounds Extremities: No swelling, No clubbing, No cyanosis; no lower extremity edema bilateral Neurologic/Psychiatric: other (moves all extremities) Skin: No rash on exposed areas, No ulcerations on exposed areas Results/Procedures: Labs Laboratory Tests 12/17/22 05:28: White Blood Count 14.4H, Red Blood Count 3.61L, Hemoglobin 10.4L, Hematocrit 32L , Mean Corpuscular Volume 90, Mean Corpuscular Hemoglobin 29, Mean Corpuscular Hemoglobin Concent 32, Red Cell Distribution Width 13.9, Platelet Count 292, Mean Platelet Volume 8.8L, Immature Granulocyte % (Auto) 1, Neutrophils (%) (Auto) 78H, Lymphocytes (%) (Auto) 12, Monocytes (%) (Auto) 8, Eosinophils (%) (Auto) 2, Basophils (%) (Auto) 0, Neutrophils # (Auto) 11.2H, Lymphocytes # (Auto) 1.7, Monocytes # (Auto) 1.1H, Eosinophils # (Auto) 0.3, Basophils # (Auto) 0.0, Immature Granulocyte # (Auto) 0.1, Sodium Level 138, Potassium Level 3.2L, Chloride Level 93L, Carbon Dioxide Level 35H, Anion Gap 10, Blood Urea Nitrogen 30H, Creatinine 0.83, Estimat Glomerular Filtration Rate 70, BUN/Creatinine Ratio 36, Glucose Level 95, Calcium Level 8.8, Corrected Calcium 9.4, Magnesium Level 2.0, Total Bilirubin 0.9, Aspartate Amino Transf (AST/SGOT) 17, Alanine Aminotransferase (ALT/SGPT) 18, Alkaline Phosphatase 66, Total Protein 5.6L, Albumin 3.2 Microbiology 12/10/22 MRSA Screen - Final, Complete MRSA not isolated 12/10/22 Blood Culture - Final, Complete No growth Laboratory Tests 12/16/22 03:00 12/17/22 05:28 A/P: Assessment: Acute on chronic diastolic CHF - MPI of 09-22-2022 showed no evidence of ischemia or infarction. No regional wall motion abnormality. MPI 56% - clinically improving ?Pneumonia - management per medical services SSS and PAF - S/P ILR implant 03-01-[address] Garnica - OAC with Xarelto - EP consult with Dr. Miller who has advised continued medical management, rec ommended starting Flecainide or Amiodarone per last note in Jul 2022. - ECG on 10-14-22: NSR with LBBB and PACs - Recurrent A Fib for which she underwent cardioversion on 11/16/[address] Green - was started on Flecainide 100mg BID - a-fib with RVR on EKG of 12-10-22. Flecainide d/c'd, amiodarone initiated on 12-11-22 - ext elec CV to sinus rhythm on 12-14-22 Hypothyroidism,treated with thyroid replacement therapy. Managed by PCP Hypertension, labile blood pressure Carotid art disease, history of s/p R CEA by Dr Adams on 05/26/21 at [facility] Mild bilat dz per u/s of 09-10-2021 Mitral regurg and mild pulm htn - Echocardiogram of 12-04-[address] Garnica showed LVEF 55-65%. LA mildly dilated. Mod to severe MR. PASP 40-45 mmHg - Echocardiogram of 09-02-20 showed LVEF 55-60%. Grade 1 diastolic dysfunction. Mild MR. AoV sclerosis with mild regurg. PASP 40-45 mmHg - sleep studies by Dr. Brown on 02-14-21 did not indicate sleep apnea - a-fib seen during the test - Echo of 12-11-22: LVEF 55-60%, mod to sev enlargement of LA, mild enlargement of RA, mild to mod MR, triv AI, L pleural eff, PASP 45-50 mmHg COPD with nocturnal hypoxemia Quit smoking when she was in her 40's Chronic, bilateral leg swelling, likely related to venous insuff Chronic scoliosis and degenerative cervical spinal disease (chronically stiff neck and shoulders) Plan: * Elec CV on 12-14-22 - maintaining SR * Continue chronic DOAC therapy * Continue amiodarone * Acute on chronic diastolic CHF - clinically improving * Replenish K * Monitor labs * Advise PT/OT d/t gen weakness TINA BERG MD FACP [facility] Dec 17, 2022 16:53
[2022-12-17] MEDS: RIVAROXABAN 15 MG TABLET (XARELTO) PO SCH (17:33)
[2022-12-17] MEDS: ASPIRIN E.C. 81 MG (ECOTRIN) TAB PO SCH (19:59)
[2022-12-17] MEDS: SERTRALINE 50 MG (ZOLOFT) TABLET PO SCH (19:59)
[2022-12-17 20:04] VITALS: BP 134/59
[2022-12-17 23:20] VITALS: BP 127/72
[2022-12-18] MEDS: RT-ALBUTEROL/IPRATROPIUM 3 ML (DUONEB) VIAL INH SCH ×4 (02:32→20:58)
[2022-12-18 04:05] LABS: BASOPHILS % (AUTO) 0 % (0-10); EOSINOPHILS % (AUTO) 0 % (0-10); HEMATOCRIT 31 % (35-52); HEMOGLOBIN 10.1 g/dL (11.5-16.0); LYMPHOCYTES # (AUTO) 1.1 10^3/uL (1.0-4.0); LYMPHOCYTES % (AUTO) 8 % (12-44); MEAN CORPUSCULAR HEMOGLOBIN 29 pg (25-34); MEAN CORPUSCULAR HGB CONC 33 g/dL (32-36); MEAN CORPUSCULAR VOLUME 89 fL (80-99); MEAN PLATELET VOLUME 9.2 fL (9.0-12.2); MONOCYTES % (AUTO) 8 % (0-12); NEUTROPHILS # (AUTO) 10.8 10^3/uL (1.8-7.8); NEUTROPHILS % (AUTO) 83 % (42-75); PLATELET COUNT 305 10^3/uL (130-400)
[2022-12-18 04:16] LABS: ALBUMIN 3.3 GM/DL (3.2-4.5); POTASSIUM 3.4 MMOL/L (3.6-5.0)
[2022-12-18 04:17] LABS: CALCIUM 9.4 MG/DL (8.5-10.1)
[2022-12-18 04:18] LABS: TOTAL PROTEIN 5.9 GM/DL (6.4-8.2)
[2022-12-18 04:20] LABS: BILIRUBIN,TOTAL 0.8 MG/DL (0.1-1.0)
[2022-12-18 04:22] LABS: CREATININE SERUM 0.88 MG/DL (0.60-1.30)
[2022-12-18 04:57] VITALS: BP 150/66
[2022-12-18] MEDS: CYANOCOBALAMIN 1,000 MCG (VITAMIN B-12) TABLET PO SCH (06:06)
[2022-12-18] MEDS: LEVOTHYROXINE 75 MCG (LEVOTHROID) TABLET PO SCH (06:06)
[2022-12-18] MEDS: KCL 20 MEQ TAB (K-DUR) PO SCH (06:06)
[2022-12-18] MEDS: predniSONE 20 MG TAB PO SCH (06:06)
[2022-12-18] MEDS: RT-BUDESONIDE NEBS 0.5 MG/2ML (PULMICORT) AMP IH SCH ×2 (07:09→20:58)
[2022-12-18] MEDS: DOCUSATE SODIUM 100 MG (COLACE) CAP PO SCH ×2 (08:04→20:21)
[2022-12-18] MEDS: SENNOSIDES 8.6 MG (SENOKOT) TAB PO SCH ×2 (08:04→20:21)
[2022-12-18] MEDS: FUROSEMIDE 40 MG/4 ML INJ (LASIX) IVP SCH (08:18)
[2022-12-18] MEDS: AMIODARONE 200 MG (CORDARONE) TAB PO SCH ×2 (08:18→20:22)
[2022-12-18] MEDS: polyethylene glycoL POWDER 17 GM (MIRALAX) PACK PO SCH (08:20)
[2022-12-18 08:23] VITALS: BP 126/63
--- NOTE | 2022-12-18 09:56 | Physical Therapy Daily Note ---
PT Daily Note-Current Subjective Patient agrees to PT. Pain Section J - Health Conditions 1. Rarely or not at all 2. Occasionally 3. Frequently 4. Almost constantly 8. Unable to answer Pain Effect on Sleep: 1 Pain Interference with Therapy: 1 Pain Interference w/Day-to-Day: 1 Transfers SCALE: Activities may be completed with or without assistive devices. 7-Rgnywogbke-xqqupgu completes the activity by him/herself with no assistance from a helper. 5-Set-up or Clean-up Assistance-helper sets up or cleans up; patient completes activity. [place] assists only prior to or following the activity. 4-Supervision or Touching Assistance-helper provides verbal cues and/or touching/steadying and/or contact guard assistance as patient completes activity. Assistance may be provided throughout the activity or intermittently. 3-Partial/Moderate Assistance-helper does LESS THAN HALF the effort. [place] lifts, holds or supports trunk or limbs, but provides less than half the effort. 2-Substantial/Maximal Assistance-helper does MORE THAN HALF the effort. [place] lifts or holds trunk or limbs and provides more than half the effort. 1-Hbvpgqykj-zcmvbj does ALL the effort. Patient does none of the effort to complete the activity. Or, the assistance of 2 or more helpers is required for the patient to complete the activity. If activity was not attempted, code reason: 7-Patient Refused. 9-Not Applicable-not attempted and the patient did not perform the activity before the current illness, exacerbation or injury. 10-Not Attempted due to Environmental Limitations-(lack of equipment, weather restraints, etc.). 88-Not Attempted due to Medical Conditions or Safety Concerns. Sit to Stand (QC): 4 SBA with all mobility Weight Bearing Right Lower Extremity: Right Full Weight Bearing Left Lower Extremity: Left Full Weight Bearing Gait Training Distance: 275' Walk 10 feet (QC): 4 Walk 50 ft with 2 Turns(QC): 4 Walk 150 ft (QC): 4 Gait Assistive Device: FWW SBA/steady gait sequence with no deviation Assessment Patient tolerated treatment well and transferred to [facility] with OT present to assist. Patient is SBA with all functional mobility. PT Short Term Goals Short Term Goals Time Frame: Dec 17, 2022 PT Bridge Instructor Goals Bridge Instructor Goals PT Bridge Instructor Goals Time Frame: Jan 30, 2023 Roll Left & Right (QC): 6 Sit to Lying (QC): 6 Lying-Sitting on Side/Bed(QC): 6 Sit to Stand (QC): 6 Chair/Myo-to-Jgorg Xfer(QC): 6 Does the Patient Walk: Yes Walk 10 feet (QC): 4 Walk 50ft with 2 Turns (QC): 4 Walk 150 ft (QC): 4 PT Plan Treatment/Plan Treatment Plan: Continue Plan of Care Treatment Plan: Bed Mobility, Education, Functional Activity Samy, Functional Strength, Group Therapy, Gait, Safety, Therapeutic Exercise, Transfers Treatment Duration: Jan 30, 2023 Frequency: 6 times per week Estimated Hrs Per Day: .25 hour per day Patient and/or Family Agrees t: Yes Time Time In: 847 Time Out: 903 DATE: Dec 18, 2022 Total Billed Treatment Time: 16 Total Billed Treatment 1 visit FA 16 min MIRIAM JEWELL PT Dec 18, 2022 09:56
--- NOTE | 2022-12-18 10:02 | Occupational Ther Daily Note ---
OT Current Status-Daily Note Subjective PATIENT EDUCATED TO MINIMIZE COMMUNICATION DURING TASKS TO ALLOW SELF SAFETY AWARENESS AND BREATH SUPPORT TO COMPLETE TASKS, PERSEVERANCES ON EVENTS HOWEVER IS INACCURATE IN SEQUENCE OF EVENTS AND TIME LAPSES DETAILS Mental Status/Objective Patient Orientation: Person, Confused, Situation Attachments: IV, Oxygen, Telemetry (DISCONNECTED FOR SHOWER, STAFF INFORMED) ADL-Treatment PERFORMS ALL ADL AND TRANSFER SBA W/ STEP BY STEP INSTRUCTION AND PATIENTS ABLE TO VERBALIZE NEXT STEP TO THERAPIST Therapy Code Descriptions/Definitions Functional [place] Measure: 0=Not Assessed/NA 4=Minimal Assistance 1=Total Assistance 5=Supervision or Setup 2=Maximal Assistance 6=Modified [place] 3=Moderate Assistance 7=Complete IndependenceSCALE: Activities may be completed with or without assistive devices. 8-Esoledggqb-lvmyret completes the activity by him/herself with no assistance from a helper. 5-Set-up or Clean-up Assistance-helper sets up or cleans up; patient completes activity. [place] assists only prior to or following the activity. 4-Supervision or Touching Assistance-helper provides verbal cues and/or touching/steadying and/or contact guard assistance as patient completes activity. Assistance may be provided throughout the activity or intermittently. 3-Partial/Moderate Assistance-helper does LESS THAN HALF the effort. [place] lifts, holds or supports trunk or limbs, but provides less than half the effort. 2-Substantial/Maximal Assistance-helper does MORE THAN HALF the effort. [place] lifts or holds trunk or limbs and provides more than half the effort. 7-Nwqjinlbb-pbetsd does ALL the effort. Patient does none of the effort to comp lete the activity. Or, the assistance of 2 or more helpers is required for the patient to complete the activity. If activity was not attempted, code reason: 7-Patient Refused. 9-Not Applicable-not attempted and the patient did not perform the activity before the current illness, exacerbation or injury. 10-Not Attempted due to Environmental Limitations-(lack of equipment, weather restraints, etc.). 88-Not Attempted due to Medical Conditions or Safety Concerns. Eating (QC): 6 (PATIENT IS ABLE TO REMOVE LIDS TO CONTAINER, POUIR ICE /WATER FROM STYROFAOM CUP INTO VC MUG AND CLOSE LID) Oral Hygiene (QC): 5 (STANDING AT SINK W/ FWW,VC FOR 02 TUBE MANAGEMENT) Bathing Location: L Arm, R Arm, L Upper Leg, R Upper Leg, L Lower Leg (including foot), R Lower Leg (including foot), Chest, Abdomen, Buttocks, Perineal Area Shower/Bathe Self (QC): 5 (SBA W/ VERBAL; CUES AND ITEMS SET BESIDE HER ON SHOWER BENCH, PATEINT ADJUSTS TEMPERTURE OF WATER AND MANAGES HYGIENE SUPPLIES, HHSH AND GBS.) Upper Body Dressing (QC): 5 (VCS FOR SEQUENCES TO UNTIE STRING AND REMOVE TELEMTRY PACK) Lower Body Dressing (QC): 5 (NO BRIEF, DONNS ANN SOCKS SITTING ON SHOWER BENCH W/ OT STANDING FOR SUPERVISON) On/Off Footwear: 5 (SOCKS HANDED TO PATIEN PATIENT DONNED WITH THERAPST STANDING ACROSS ROOM) Toileting Hygiene (QC): 5 (MARVIN BRITT DEMONSTRATED APPROPRIATE REACH FOR CLEANSE ALL AREA FOR GRACIELA CARE) Toilet Transfer (QC): 5 (GB, FWW AND VERABL CUES) Education OT Patient Education: Correct positioning, Energy conservation, Modified ADL techniques, Progress toward Goal/Update tx plan, Purpose of tx/functional activities, Reviewed precautions, Rehab process, Safety issues, Use of adapted equipment Teaching Recipient: Patient Teaching Methods: Discussion Response to Teaching: Return Demonstration SELF LIMITS D/T ANXIETY OT Short Term Goals Short Term Goals Time Frame: Dec 18, 2022 OT Epic Analyst Goals [facility] Goals Eating (QC): 6 Oral Hygiene (QC): 6 Toileting Hygiene (QC): 6 Shower/Bathe Self (QC): 5 Upper Body Dressing (QC): 6 Lower Body Dressing (QC): 6 On/Off Footwear (QC): 6 1=Demonstrate adherence to instructed precautions during ADL tasks. 2=Patient will verbalize/demonstrate understanding of assistive devices/modifications for ADL. 3=Patient will improve strength/tolerance for activity to enable patient to perform ADL's. OT Education/Plan Problem List/Assessment Assessment: Impaired Cognition, Impaired Self-Care Skills Discharge Recommendations Plan/Recommendations: Continue POC Treatment Plan/Plan of Care Treatment,Training & Education: Yes Patient would benefit from OT for education, treatment and training to promote independence in ADL's, mobility, safety and/or upper extremity function for ADL's. Plan of Care: ADL Retraining, Functional Mobility, Group Exercise/Act as Ind, UE Funct Exercise/Act Treatment Duration: Dec 18, 2022 Frequency: 3 times per week (3-5 times per week) Estimated Hrs Per Day: .25 hour per day Agreement: Yes Rehab Potential: Guarded Time Start Time: 08:47 Stop Time: 09:30 DATE: Dec 18, 2022 Total Time Billed (hr/min): 53 Billed Treatment Time adl 53 MIN FELICIANO JOHNSON OT Dec 18, 2022 10:01
[2022-12-18] MEDS ORDERED: LACTULOSE SYRUP 10GM/15ML (ENULOSE) 30ML UDC PO NR (12:00)
--- NOTE | 2022-12-18 12:19 | Progress Note ---
Subjective Date Seen by a Provider: Dec 18, 2022 Time Seen by a Provider: 11:00 Subjective/Events-last exam No major issues Urinary retention is an issue Labs stable Cardiology assessed her to be stable DC VCV Wednesday Review of Systems General: Fatigue, Malaise Pulmonary: Dyspnea, Cough Objective Exam Last Set of Vital Signs Vital Signs Date Time Temp Pulse Resp B/P (MAP) Pulse Ox O2 Delivery O2 Flow Rate FiO2 12/18/22 08:23 36.7 71 18 126/63 (84) 97 Nasal Cannula 2.50 12/16/22 09:12 32 Capillary Refill : Less Than 3 Seconds I&O Intake and Output 12/18/22 00:00 Intake Total 2250 ml Output Total 1780 ml Balance 470 ml Intake Oral 2250 ml Output Urine Total 1780 ml Bladder Scan Volume Amount 214 ml # Voids 1 General: Alert, Oriented X3, Cooperative, No Acute Distress Lungs: Clear to Auscultation, Normal Air Movement Heart: Regular Rate, Normal S1, Normal S2, No Murmurs Psych/Mental Status: Mental Status NL, Mood NL Results Lab Laboratory Tests 12/18/22 03:55: White Blood Count 13.0H, Red Blood Count 3.51L, Hemoglobin 10.1L, Hematocrit 31L , Mean Corpuscular Volume 89, Mean Corpuscular Hemoglobin 29, Mean Corpuscular Hemoglobin Concent 33, Red Cell Distribution Width 14.2, Platelet Count 305, Mean Platelet Volume 9.2, Immature Granulocyte % (Auto) 1, Neutrophils (%) (Auto) 83H, Lymphocytes (%) (Auto) 8L, Monocytes (%) (Auto) 8, Eosinophils (%) (Auto) 0, Basophils (%) (Auto) 0, Neutrophils # (Auto) 10.8H, Lymphocytes # (Auto) 1.1, Monocytes # (Auto) 1.0, Eosinophils # (Auto) 0.0, Basophils # (Auto) 0.0, Immature Granulocyte # (Auto) 0.1, Sodium Level 137, Potassium Level 3.4L, Chloride Level 92L, Carbon Dioxide Level 35H, Anion Gap 10, Blood Urea Nitrogen 39H, Creatinine 0.88, Estimat Glomerular Filtration Rate 66, BUN/Creatinine Ratio 44, Glucose Level 103, Calcium Level 9.4, Corrected Calcium 10.0, Magnesium Level 2.0, Total Bilirubin 0.8, Aspartate Amino Transf (AST/SGOT) 21, Alanine Aminotransferase (ALT/SGPT) 19, Alkaline Phosphatase 67, Total Protein 5.9L, Albumin 3.3 Microbiology 12/10/22 MRSA Screen - Final, Complete MRSA not isolated 12/10/22 Blood Culture - Final, Complete No growth Assessment/Plan Assessment/Plan Assess & Plan/Chief Complaint Assessment: Acute hypoxic hypercapneic resp failure requiring biPAP Congestive heart failure myopathy HAP Atrial fibrillation s/p cardioversion 11/16/22 and again 12/14/22 Oral anticoagulation Hypothyroidism Hypertension Falls Recent left leg pain due to fall with hematoma from oral anticoagulation Orthostasis with near syncope on 11/11/22 Left-sided sciatica Anxiety Frail status Urinary retention requiring catheterization Plan: Continue MedSurg care Cardioversion and TIANNA done Xanax VCV Wednesday Diagnosis/Problems Diagnosis/Problems (1) Chronic heart failure with preserved ejection fraction (HFpEF) (2) Respiratory distress Status: Acute (3) Pulmonary hypertension (4) Mitral regurgitation (5) Primary hypertension (6) Atrial fibrillation status post cardioversion (7) Paroxysmal atrial fibrillation Clinical Quality Measures Admission Status Admission Dx Assessment: Acute hypoxic hypercapneic resp failure requiring biPAP Congestive heart failure myopathy HAP Atrial fibrillation s/p cardioversion 11/16/22 Oral anticoagulation Hypothyroidism Hypertension Falls Recent left leg pain due to fall with hematoma from oral anticoagulation Orthostasis with near syncope on 11/11/22 Left-sided sciatica ELVA BEAUCHAMP DO Dec 18, 2022 12:19
[2022-12-18 12:31] VITALS: BP 124/70
--- NOTE | 2022-12-18 15:10 | Progress Note - Cardiology ---
Cardiology SOAP Progress Note Subjective: No cp or palp or syncope Breathing better No n/v/d Gen weakness No focal weakness Objective: I&O/Vital Signs 12/18/22 12/18/22 12/18/22 12/18/22 04:57 07:00 07:13 08:00 Temp 36.4 Pulse 85 74 Resp 16 B/P (MAP) 150/66 (94) Pulse Ox 97 93 O2 Delivery Nasal Cannula High Flow N/C High Flow N/C O2 Flow Rate 2.50 2.50 3.00 12/18/22 12/18/22 12/18/22 08:23 12:31 13:00 Temp 36.7 36.2 Pulse 71 72 70 Resp 18 18 B/P (MAP) 126/63 (84) 124/70 (88) Pulse Ox 97 98 O2 Delivery Nasal Cannula Nasal Cannula O2 Flow Rate 2.50 2.50 12/18/22 00:00 Intake Total 2050 ml Output Total 1580 ml Balance 470 ml Weight (Pounds): 157 Weight (Ounces): 0.9 Weight (Calculated Kilograms): 71.010472 Constitutional: AAO x 3, well-developed, well-nourished Respiratory: No accessory muscle use, No respiratory distress; other (dim inished lower lobes bilat) Cardiovascular: irregularly irregular; No JVD; S1 and S2 Gastrointestional: No tender; soft; No guarding; audible bowel sounds Extremities: No swelling, No clubbing, No cyanosis; no lower extremity edema bilateral Neurologic/Psychiatric: other (moves all extremities) Skin: No rash on exposed areas, No ulcerations on exposed areas Results/Procedures: Labs Laboratory Tests 12/18/22 03:55: White Blood Count 13.0H, Red Blood Count 3.51L, Hemoglobin 10.1L, Hematocrit 31L , Mean Corpuscular Volume 89, Mean Corpuscular Hemoglobin 29, Mean Corpuscular Hemoglobin Concent 33, Red Cell Distribution Width 14.2, Platelet Count 305, Mean Platelet Volume 9.2, Immature Granulocyte % (Auto) 1, Neutrophils (%) (Auto) 83H, Lymphocytes (%) (Auto) 8L, Monocytes (%) (Auto) 8, Eosinophils (%) (Auto) 0, Basophils (%) (Auto) 0, Neutrophils # (Auto) 10.8H, Lymphocytes # (Auto) 1.1, Monocytes # (Auto) 1.0, Eosinophils # (Auto) 0.0, Basophils # (Auto) 0.0, Immature Granulocyte # (Auto) 0.1, Sodium Level 137, Potassium Level 3.4L, Chloride Level 92L, Carbon Dioxide Level 35H, Anion Gap 10, Blood Urea Nitrogen 39H, Creatinine 0.88, Estimat Glomerular Filtration Rate 66, BUN/Creatinine Ratio 44, Glucose Level 103, Calcium Level 9.4, Corrected Calcium 10.0, Magnesium Level 2.0, Total Bilirubin 0.8, Aspartate Amino Transf (AST/SGOT) 21, Alanine Aminotransferase (ALT/SGPT) 19, Alkaline Phosphatase 67, Total Protein 5.9L, Albumin 3.3 Microbiology 12/10/22 MRSA Screen - Final, Complete MRSA not isolated 12/10/22 Blood Culture - Final, Complete No growth Laboratory Tests 12/17/22 05:28 12/18/22 03:55 A/P: Assessment: Acute on chronic diastolic CHF - MPI of 09-22-2022 showed no evidence of ischemia or infarction. No regional wall motion abnormality. MPI 56% - clinically improving ?Pneumonia - management per medical services SSS and PAF - S/P ILR implant 03-01-[address] Garnica - OAC with Xarelto - EP consult with Dr. Miller who has advised continued medical management, recommended starting Flecainide or Amiodarone per last note in Jul 2022. - ECG on 10-14-22: NSR with LBBB and PACs - Recurrent A Fib for which she underwent cardioversion on 11/16/[address] Green - was started on Flecainide 100mg BID - a-fib with RVR on EKG of 12-10-22. Flecainide d/c'd, amiodarone initiated on 12-11-22 - ext elec CV to sinus rhythm on 12-14-22 Hypothyroidism,treated with thyroid replacement therapy. Managed by PCP Hypertension, labile blood pressure Carotid art disease, history of s/p R CEA by Dr Adams on 05/26/21 at [place], [place] Mild bilat dz per u/s of 09-10-2021 Mitral regurg and mild pulm htn - Echocardiogram of 12-04-[address] Garnica showed LVEF 55-65%. LA mildly dilated. Mod to severe MR. PASP 40-45 mmHg - Echocardiogram of 09-02-20 showed LVEF 55-60%. Grade 1 diastolic dysfunction. Mild MR. AoV sclerosis with mild regurg. PASP 40-45 mmHg - sleep studies by Dr. Brown on 02-14-21 did not indicate sleep apnea - a-fib seen during the test - Echo of 12-11-22: LVEF 55-60%, mod to sev enlargement of LA, mild enlargement of RA, mild to mod MR, triv AI, L pleural eff, PASP 45-50 mmHg COPD with nocturnal hypoxemia Quit smoking when she was in her 40's Chronic, bilateral leg swelling, likely related to venous insuff Chronic scoliosis and degenerative cervical spinal disease (chronically stiff neck and shoulders) Plan: * Elec CV on 12-14-22 - maintaining SR * Continue chronic DOAC therapy * Continue amiodarone * Acute on chronic diastolic CHF - clinically improving * Replenish K * Monitor labs * Advise PT/OT d/t gen weakness TINA BERG MD FACP FAC CCDS Dec 18, 2022 15:10
[2022-12-18 16:24] VITALS: BP 125/62
[2022-12-18] MEDS: RIVAROXABAN 15 MG TABLET (XARELTO) PO SCH (16:59)
[2022-12-18 19:28] VITALS: BP 120/54
[2022-12-18] MEDS: LACTULOSE SYRUP 10GM/15ML (ENULOSE) 30ML UDC PO SCH (20:20)
[2022-12-18] MEDS: ASPIRIN E.C. 81 MG (ECOTRIN) TAB PO SCH (20:21)
[2022-12-18] MEDS: SERTRALINE 50 MG (ZOLOFT) TABLET PO SCH (20:22)
[2022-12-18 23:19] VITALS: BP 155/67
[2022-12-19] VITALS (7 sets, daily range): BP systolic 130–150; BP diastolic 50–70
[2022-12-19] MEDS: RT-ALBUTEROL/IPRATROPIUM 3 ML (DUONEB) VIAL INH SCH ×3 (02:25→19:57)
[2022-12-19 03:41] LABS: BASOPHILS % (AUTO) 0 % (0-10); EOSINOPHILS % (AUTO) 0 % (0-10); HEMATOCRIT 31 % (35-52); HEMOGLOBIN 9.9 g/dL (11.5-16.0); LYMPHOCYTES # (AUTO) 1.6 10^3/uL (1.0-4.0); LYMPHOCYTES % (AUTO) 13 % (12-44); MEAN CORPUSCULAR HEMOGLOBIN 29 pg (25-34); MEAN CORPUSCULAR HGB CONC 32 g/dL (32-36); MEAN CORPUSCULAR VOLUME 90 fL (80-99); MEAN PLATELET VOLUME 9.3 fL (9.0-12.2); MONOCYTES # (AUTO) 0.9 10^3/uL (0.0-1.0); MONOCYTES % (AUTO) 7 % (0-12); NEUTROPHILS # (AUTO) 9.7 10^3/uL (1.8-7.8); NEUTROPHILS % (AUTO) 79 % (42-75); PLATELET COUNT 292 10^3/uL (130-400); WHITE BLOOD COUNT 12.3 10^3/uL (4.3-11.0)
[2022-12-19 03:52] LABS: ALBUMIN 3.4 GM/DL (3.2-4.5); POTASSIUM 3.7 MMOL/L (3.6-5.0)
[2022-12-19 03:53] LABS: CALCIUM 9.1 MG/DL (8.5-10.1)
[2022-12-19 03:55] LABS: TOTAL PROTEIN 6.1 GM/DL (6.4-8.2)
[2022-12-19 03:56] LABS: BILIRUBIN,TOTAL 0.8 MG/DL (0.1-1.0)
[2022-12-19 03:58] LABS: CREATININE SERUM 0.85 MG/DL (0.60-1.30)
[2022-12-19 04:01] LABS: MAGNESIUM 2.1 MG/DL (1.6-2.4)
[2022-12-19] MEDS: predniSONE 20 MG TAB PO SCH (05:56)
[2022-12-19] MEDS: CYANOCOBALAMIN 1,000 MCG (VITAMIN B-12) TABLET PO SCH (05:56)
[2022-12-19] MEDS: LEVOTHYROXINE 88 MCG (LEVOTHORID) TAB PO SCH (05:59)
[2022-12-19] MEDS: RT-BUDESONIDE NEBS 0.5 MG/2ML (PULMICORT) AMP IH SCH ×2 (06:48→19:57)
[2022-12-19] MEDS: FUROSEMIDE 40 MG/4 ML INJ (LASIX) IVP SCH (07:46)
[2022-12-19] MEDS: LACTULOSE SYRUP 10GM/15ML (ENULOSE) 30ML UDC PO SCH ×2 (07:46→19:26)
[2022-12-19] MEDS: polyethylene glycoL POWDER 17 GM (MIRALAX) PACK PO SCH (07:46)
[2022-12-19] MEDS: DOCUSATE SODIUM 100 MG (COLACE) CAP PO SCH ×2 (07:47→19:26)
[2022-12-19] MEDS: SENNOSIDES 8.6 MG (SENOKOT) TAB PO SCH ×2 (07:47→19:27)
[2022-12-19] MEDS: KCL 20 MEQ TAB (K-DUR) PO SCH (07:47)
[2022-12-19] MEDS: AMIODARONE 200 MG (CORDARONE) TAB PO SCH ×2 (07:52→19:31)
--- NOTE | 2022-12-19 08:46 | Physical Therapy Daily Note ---
PT Daily Note-Current Subjective Patient agrees to PT. Pain Section J - Health Conditions 1. Rarely or not at all 2. Occasionally 3. Frequently 4. Almost constantly 8. Unable to answer Pain Effect on Sleep: 1 Pain Interference with Therapy: 1 Pain Interference w/Day-to-Day: 1 Mental Status Attachments: Oxygen, Ham Catheter Transfers SCALE: Activities may be completed with or without assistive devices. 3-Nbjagpkrar-vhzeqsi completes the activity by him/herself with no assistance from a helper. 5-Set-up or Clean-up Assistance-helper sets up or cleans up; patient completes activity. [place] assists only prior to or following the activity. 4-Supervision or Touching Assistance-helper provides verbal cues and/or touching/steadying and/or contact guard assistance as patient completes activity. Assistance may be provided throughout the activity or intermittently. 3-Partial/Moderate Assistance-helper does LESS THAN HALF the effort. [place] lifts, holds or supports trunk or limbs, but provides less than half the effort. 2-Substantial/Maximal Assistance-helper does MORE THAN HALF the effort. [place] lifts or holds trunk or limbs and provides more than half the effort. 4-Lyvqyoofi-cifubi does ALL the effort. Patient does none of the effort to complete the activity. Or, the assistance of 2 or more helpers is required for the patient to complete the activity. If activity was not attempted, code reason: 7-Patient Refused. 9-Not Applicable-not attempted and the patient did not perform the activity before the current illness, exacerbation or injury. 10-Not Attempted due to Environmental Limitations-(lack of equipment, weather restraints, etc.). 88-Not Attempted due to Medical Conditions or Safety Concerns. Sit to Stand (QC): 4 Weight Bearing Right Lower Extremity: Right Full Weight Bearing Left Lower Extremity: Left Full Weight Bearing Gait Training Distance: 275' Walk 10 feet (QC): 4 Walk 50 ft with 2 Turns(QC): 4 Walk 150 ft (QC): 4 Gait Assistive Device: FWW steady pace/reciprocal pattern Assessment Patient tolerated treatment well and remains up in recliner with chair alarm activated. PT to increase activity as tolerated by patient. PT Short Term Goals Short Term Goals Time Frame: Dec 17, 2022 PT Iuss Analyst Goals Usp Goals PT Iuss Analyst Goals Time Frame: Jan 30, 2023 Roll Left & Right (QC): 6 Sit to Lying (QC): 6 Lying-Sitting on Side/Bed(QC): 6 Sit to Stand (QC): 6 Chair/Nox-pw-Ofsze Xfer(QC): 6 Does the Patient Walk: Yes Walk 10 feet (QC): 4 Walk 50ft with 2 Turns (QC): 4 Walk 150 ft (QC): 4 PT Plan Treatment/Plan Treatment Plan: Continue Plan of Care Treatment Plan: Bed Mobility, Education, Functional Activity Samy, Functional Strength, Group Therapy, Gait, Safety, Therapeutic Exercise, Transfers Treatment Duration: Jan 30, 2023 Frequency: 6 times per week Estimated Hrs Per Day: .25 hour per day Patient and/or Family Agrees t: Yes Time Time In: 832 Time Out: 842 DATE: Dec 19, 2022 Total Billed Treatment Time: 10 Total Billed Treatment 1 visit FA 10 min MIRIAM JEWELL PT Dec 19, 2022 08:46
--- NOTE | 2022-12-19 14:28 | Cardiology Progress Note ---
Cardiology SOAP Progress Note Subjective: Improved shortness of breath. Objective: I&O/Vital Signs 12/19/22 12/19/22 12/19/22 12/19/22 03:26 06:48 06:51 07:00 Temp 36.7 36.7 Pulse 71 71 77 Resp 20 B/P (MAP) 140/59 (86) Pulse Ox 99 98 98 O2 Delivery Nasal Cannula High Flow N/C O2 Flow Rate 2.50 2.50 12/19/22 12/19/22 12/19/22 12/19/22 08:15 08:15 11:50 12:17 Temp 37.0 36.8 Pulse 71 70 75 Resp 18 18 B/P (MAP) 148/64 (92) 130/62 (84) Pulse Ox 98 97 O2 Delivery Nasal Cannula High Flow N/C Nasal Cannula O2 Flow Rate 2.50 2.50 2.50 12/19/22 00:00 Intake Total 1160 ml Output Total 1175 ml Balance -15 ml Weight (Pounds): 157 Weight (Ounces): 0.9 Weight (Calculated Kilograms): 71.089631 Constitutional: AAO x 3, well-developed, well-nourished Respiratory: No accessory muscle use, No respiratory distress; other (diminished lower lobes bilat) Cardiovascular: irregularly irregular; No JVD; S1 and S2 Gastrointestional: No tender; soft; No guarding; audible bowel sounds Extremities: No swelling, No clubbing, No cyanosis; no lower extremity edema bilateral Neurologic/Psychiatric: other (moves all extremities) Skin: No rash on exposed areas, No ulcerations on exposed areas Results/Procedures: Labs Laboratory Tests 12/19/22 03:34: White Blood Count 12.3H, Red Blood Count 3.43L, Hemoglobin 9.9L, Hematocrit 31L, Mean Corpuscular Volume 90, Mean Corpuscular Hemoglobin 29, Mean Corpuscular Hemoglobin Concent 32, Red Cell Distribution Width 14.4, Platelet Count 292, Mean Platelet Volume 9.3, Immature Granulocyte % (Auto) 1, Neutrophils (%) (Auto) 79H, Lymphocytes (%) (Auto) 13, Monocytes (%) (Auto) 7, Eosinophils (%) (Auto) 0, Basophils (%) (Auto) 0, Neutrophils # (Auto) 9.7H, Lymphocytes # (Auto) 1.6, Monocytes # (Auto) 0.9, Eosinophils # (Auto) 0.0, Basophils # (Auto) 0.0, Immature Granulocyte # (Auto) 0.1, Sodium Level 138, Potassium Level 3.7, Chloride Level 95L, Carbon Dioxide Level 32, Anion Gap 11, Blood Urea Nitrogen 33H, Creatinine 0.85, Estimat Glomerular Filtration Rate 68, BUN/Creatinine Ratio 39, Glucose Level 91, Calcium Level 9.1, Corrected Calcium 9.6, Magnesium Level 2.1, Total Bilirubin 0.8, Aspartate Amino Transf (AST/SGOT) 25, Alanine Aminotransferase (ALT/SGPT) 22, Alkaline Phosphatase 62, Total Protein 6.1L, Albumin 3.4 Microbiology 12/10/22 MRSA Screen - Final, Complete MRSA not isolated 12/10/22 Blood Culture - Final, Complete No growth A/P: Assessment/Dx: Acute on chronic diastolic CHF - MPI of 09-22-2022 showed no evidence of ischemia or infarction. No regional wall motion abnormality. MPI 56% - clinically improving ; shortness of breath significantly improved ?Pneumonia - management per medical services SSS and PAF - S/P ILR implant 03-01-[address] Garnica - OAC with Xarelto - EP consult with Dr. Miller who has advised continued medical management, recommended starting Flecainide or Amiodarone per last note in Jul 2022. - ECG on 10-14-22: NSR with LBBB and PACs - Recurrent A Fib for which she underwent cardioversion on 11/16/[address] Green - was started on Flecainide 100mg BID - a-fib with RVR on EKG of 12-10-22. Flecainide d/c'd, amiodarone initiated on 12-11-22 - ext elec CV to sinus rhythm on 12-14-22 Hypothyroidism,treated with thyroid replacement therapy. Managed by PCP Hypertension, labile blood pressure Carotid art disease, history of s/p R CEA by Dr Adams on 05/26/21 at [place], [place] Mild bilat dz per u/s of 09-10-2021 Mitral regurg and mild pulm htn - Echocardiogram of 12-04-[address] Garnica showed LVEF 55-65%. LA mildly dilated. Mod to severe MR. PASP 40-45 mmHg - Echocardiogram of 09-02-20 showed LVEF 55-60%. Grade 1 diastolic dysfunction. Mild MR. AoV sclerosis with mild regurg. PASP 40-45 mmHg - sleep studies by Dr. Brown on 02-14-21 did not indicate sleep apnea - a-fib seen during the test - Echo of 12-11-22: LVEF 55-60%, mod to sev enlargement of LA, mild enlargement of RA, mild to mod MR, triv AI, L pleural eff, PASP 45-50 mmHg COPD with nocturnal hypoxemia Quit smoking when she was in her 40's Chronic, bilateral leg swelling, likely related to venous insuff Chronic scoliosis and degenerative cervical spinal disease (chronically stiff neck and shoulders) Plan: Plan: * Elec CV on 12-14-22 - maintaining SR * Continue chronic oral anticoagulation * Continue amiodarone * Acute on chronic diastolic CHF - clinically improving; shortness of breath significantly improved. * Replenish electrolytes * Monitor labs * Advise PT/OT d/t gen Ban Trimble MD Dec 19, 2022 14:28
[2022-12-19] MEDS: RIVAROXABAN 15 MG TABLET (XARELTO) PO SCH (17:21)
[2022-12-19] MEDS: SERTRALINE 50 MG (ZOLOFT) TABLET PO SCH (19:30)
[2022-12-19] MEDS: ASPIRIN E.C. 81 MG (ECOTRIN) TAB PO SCH (19:31)
[2022-12-20] MEDS: ALPRAZolam 0.25 MG (XANAX) TAB PO PRN ×2 (00:37→17:23)
[2022-12-20] MEDS: ACETAMINOPHEN 325 MG TABLET PO PRN ×2 (00:37→17:24)
[2022-12-20 03:10] VITALS: BP 144/65
[2022-12-20] MEDS: predniSONE 20 MG TAB PO SCH (05:59)
[2022-12-20] MEDS: CYANOCOBALAMIN 1,000 MCG (VITAMIN B-12) TABLET PO SCH (05:59)
[2022-12-20] MEDS: LEVOTHYROXINE 88 MCG (LEVOTHORID) TAB PO SCH (06:03)
[2022-12-20 06:14] LABS: BASOPHILS % (AUTO) 0 % (0-10); EOSINOPHILS # (AUTO) 0.1 10^3/uL (0.0-0.3); EOSINOPHILS % (AUTO) 1 % (0-10); HEMATOCRIT 30 % (35-52); HEMOGLOBIN 9.5 g/dL (11.5-16.0); LYMPHOCYTES % (AUTO) 18 % (12-44); MEAN CORPUSCULAR HEMOGLOBIN 29 pg (25-34); MEAN CORPUSCULAR HGB CONC 32 g/dL (32-36); MEAN CORPUSCULAR VOLUME 89 fL (80-99); MONOCYTES # (AUTO) 0.8 10^3/uL (0.0-1.0); MONOCYTES % (AUTO) 7 % (0-12); NEUTROPHILS # (AUTO) 8.4 10^3/uL (1.8-7.8); NEUTROPHILS % (AUTO) 74 % (42-75); PLATELET COUNT 290 10^3/uL (130-400); WHITE BLOOD COUNT 11.3 10^3/uL (4.3-11.0)
[2022-12-20 06:22] LABS: ALBUMIN 3.2 GM/DL (3.2-4.5); POTASSIUM 3.5 MMOL/L (3.6-5.0)
[2022-12-20 06:23] LABS: CALCIUM 8.6 MG/DL (8.5-10.1)
[2022-12-20 06:24] LABS: TOTAL PROTEIN 5.2 GM/DL (6.4-8.2)
[2022-12-20 06:26] LABS: BILIRUBIN,TOTAL 0.7 MG/DL (0.1-1.0)
[2022-12-20 06:28] LABS: CREATININE SERUM 0.87 MG/DL (0.60-1.30)
[2022-12-20] MEDS: RT-BUDESONIDE NEBS 0.5 MG/2ML (PULMICORT) AMP IH SCH ×2 (06:39→19:25)
[2022-12-20] MEDS: RT-ALBUTEROL/IPRATROPIUM 3 ML (DUONEB) VIAL INH SCH ×2 (06:39→19:25)
[2022-12-20 07:46] VITALS: BP 137/64
[2022-12-20] MEDS: KCL 20 MEQ TAB (K-DUR) PO SCH (07:57)
[2022-12-20] MEDS: AMIODARONE 200 MG (CORDARONE) TAB PO SCH ×2 (07:58→20:39)
[2022-12-20] MEDS: LACTULOSE SYRUP 10GM/15ML (ENULOSE) 30ML UDC PO SCH ×2 (07:59→20:42)
[2022-12-20] MEDS: polyethylene glycoL POWDER 17 GM (MIRALAX) PACK PO SCH (07:59)
[2022-12-20] MEDS: SENNOSIDES 8.6 MG (SENOKOT) TAB PO SCH ×2 (07:59→20:42)
[2022-12-20] MEDS: DOCUSATE SODIUM 100 MG (COLACE) CAP PO SCH ×2 (07:59→20:42)
[2022-12-20] MEDS: FUROSEMIDE 40 MG/4 ML INJ (LASIX) IVP SCH (07:59)
[2022-12-20 11:21] VITALS: BP 146/66
--- NOTE | 2022-12-20 13:15 | Progress Note - Hospitalist ---
Subjective HPI/CC On Admission Date Seen by Provider: Dec 19, 2022 Time Seen by Provider: 13:30 Subjective/Events-last exam Patient reports feeling better no chest pain palpitations or symptoms to suggest recurrence of atrial fibrillation and no evidence for this on telemetry. Stamina improving. Objective Exam Vital Signs Vital Signs Date Time Temp Pulse Resp B/P (MAP) Pulse Ox O2 Delivery O2 Flow Rate FiO2 12/20/22 12:17 54 12/20/22 11:21 36.6 18 146/66 (92) 98 High Flow N/C 2.00 12/16/22 09:12 32 Capillary Refill : Less Than 3 Seconds General Appearance: No Apparent Distress Respiratory: Chest Non Tender, Lungs Clear, Normal Breath Sounds, No Accessory Muscle Use, No Respiratory Distress Cardiovascular: Regular Rate, Rhythm, No Edema, No Gallop, No JVD, No Murmur, Normal Peripheral Pulses Gastrointestinal: Normal Bowel Sounds, No Organomegaly, No Pulsatile Mass, Non Tender, Soft Results/Procedures Lab Laboratory Tests 12/20/22 06:08 Patient resulted labs reviewed. Assessment/Plan Assessment and Plan Assess & Plan/Chief Complaint Assessment: Acute hypoxic hypercapneic resp failure requiring biPAP Congestive heart failure myopathy HAP Atrial fibrillation s/p cardioversion 11/16/22 and again 12/14/22 Oral anticoagulation Hypothyroidism Hypertension Falls Recent left leg pain due to fall with hematoma from oral anticoagulation Orthostasis with near syncope on 11/11/22 Left-sided sciatica Anxiety Frail status Urinary retention requiring catheterization Plan: Continue MedSurg care Cardioversion and TIANNA done Xanax VCV Tuesday 12/19: No evidence for recurrence of atrial fibrillation no evidence for heart failure at this time plan for transfer back to [facility] Wednesday. Critical Care Critically Ill Patient ZAHIDA BEAUCHAMP MD Dec 20, 2022 13:15
--- NOTE | 2022-12-20 13:16 | Progress Note - Hospitalist ---
Subjective HPI/CC On Admission Date Seen by Provider: Dec 20, 2022 Time Seen by Provider: 13:15 Subjective/Events-last exam Patient reports feeling stronger no chest pain or palpitations no shortness of breath. Objective Exam Vital Signs Vital Signs Date Time Temp Pulse Resp B/P (MAP) Pulse Ox O2 Delivery O2 Flow Rate FiO2 12/20/22 12:17 54 12/20/22 11:21 36.6 18 146/66 (92) 98 High Flow N/C 2.00 12/16/22 09:12 32 Capillary Refill : Less Than 3 Seconds General Appearance: No Apparent Distress Respiratory: Chest Non Tender, Lungs Clear, Normal Breath Sounds, No Accessory Muscle Use, No Respiratory Distress Cardiovascular: Regular Rate, Rhythm, No Edema, No Gallop, No JVD, No Murmur, Normal Peripheral Pulses Gastrointestinal: Normal Bowel Sounds, No Organomegaly, No Pulsatile Mass, Non Tender, Soft Results/Procedures Lab Laboratory Tests 12/20/22 06:08 Patient resulted labs reviewed. Assessment/Plan Assessment and Plan Assess & Plan/Chief Complaint Assessment: Acute hypoxic hypercapneic resp failure requiring biPAP Congestive heart failure myopathy HAP Atrial fibrillation s/p cardioversion 11/16/22 and again 12/14/22 Oral anticoagulation Hypothyroidism Hypertension Falls Recent left leg pain due to fall with hematoma from oral anticoagulation Orthostasis with near syncope on 11/11/22 Left-sided sciatica Anxiety Frail status Urinary retention requiring catheterization Plan: Continue MedSurg care Cardioversion and TIANNA done Xanax [facility] Tuesday 12/19: No evidence for recurrence of atrial fibrillation no evidence for heart failure at this time plan for transfer back to [facility] Wednesday. 12/20: Condition stable no change see above. No evidence to suggest recurrence of atrial fibrillation no evidence for heart failure. Critical Care Critically Ill Patient ZAHIDA BEAUCHAMP MD Dec 20, 2022 13:16
[2022-12-20 15:30] VITALS: BP 138/65
--- NOTE | 2022-12-20 17:03 | Cardiology Progress Note ---
Cardiology SOAP Progress Note Subjective: Improved shortness of breath. Objective: I&O/Vital Signs 12/21/22 12/21/22 12/21/22 12/21/22 03:28 07:00 07:28 07:45 Temp 36.7 36.9 Pulse 74 65 65 Resp 16 20 B/P (MAP) 148/60 (89) 156/75 (102) Pulse Ox 100 98 O2 Delivery High Flow N/C High Flow N/C High Flow N/C O2 Flow Rate 2.00 2.00 2.50 12/21/22 12/21/22 11:45 13:00 Temp 37.1 Pulse 67 67 Resp 20 B/P (MAP) 113/80 (91) Pulse Ox 97 O2 Delivery High Flow N/C O2 Flow Rate 3.00 12/21/22 00:00 Intake Total 990 ml Output Total 1000 ml Balance -10 ml Weight (Pounds): 157 Weight (Ounces): 0.9 Weight (Calculated Kilograms): 71.808415 Constitutional: AAO x 3, well-developed, well-nourished Respiratory: No accessory muscle use, No respiratory distress; other (diminishe d lower lobes bilat) Cardiovascular: irregularly irregular; No JVD; S1 and S2 Gastrointestional: No tender; soft; No guarding; audible bowel sounds Extremities: No swelling, No clubbing, No cyanosis; no lower extremity edema bilateral Neurologic/Psychiatric: other (moves all extremities) Skin: No rash on exposed areas, No ulcerations on exposed areas Results/Procedures: Labs Laboratory Tests 12/21/22 05:20: White Blood Count 13.0H, Red Blood Count 3.62L, Hemoglobin 10.6L, Hematocrit 32L , Mean Corpuscular Volume 89, Mean Corpuscular Hemoglobin 29, Mean Corpuscular Hemoglobin Concent 33, Red Cell Distribution Width 14.5, Platelet Count 318, Mean Platelet Volume 9.4, Immature Granulocyte % (Auto) 1, Neutrophils (%) (Auto) 80H, Lymphocytes (%) (Auto) 14, Monocytes (%) (Auto) 6, Eosinophils (%) (Auto) 0, Basophils (%) (Auto) 0, Neutrophils # (Auto) 10.3H, Lymphocytes # (Auto) 1.8, Monocytes # (Auto) 0.7, Eosinophils # (Auto) 0.0, Basophils # (Auto) 0.0, Immature Granulocyte # (Auto) 0.1, Sodium Level 137, Potassium Level 3.8, Chloride Level 95L, Carbon Dioxide Level 32, Anion Gap 10, Blood Urea Nitrogen 36H, Creatinine 1.01, Estimat Glomerular Filtration Rate 56, BUN/Creatinine Ratio 36, Glucose Level 82, Calcium Level 8.7, Corrected Calcium 9.3, Magnesium Level 2.0, Total Bilirubin 0.7, Aspartate Amino Transf (AST/SGOT) 28, Alanine Aminotransferase (ALT/SGPT) 23, Alkaline Phosphatase 57, Total Protein 5.7L, Albumin 3.3 Microbiology 12/10/22 MRSA Screen - Final, Complete MRSA not isolated 12/10/22 Blood Culture - Final, Complete No growth A/P: Assessment/Dx: Acute on chronic diastolic CHF - MPI of 09-22-2022 showed no evidence of ischemia or infarction. No regional wall motion abnormality. MPI 56% - clinically improving ; shortness of breath significantly improved ?Pneumonia - management per medical services SSS and PAF - S/P ILR implant 03-01-[address] Garnica - OAC with Xarelto - EP consult with Dr. Miller who has advised continued medical management, recommended starting Flecainide or Amiodarone per last note in Jul 2022. - ECG on 10-14-22: NSR with LBBB and PACs - Recurrent A Fib for which she underwent cardioversion on 11/16/[address] Green - was started on Flecainide 100mg BID - a-fib with RVR on EKG of 12-10-22. Flecainide d/c'd, amiodarone initiated on 12-11-22 - ext elec CV to sinus rhythm on 12-14-22 Hypothyroidism,treated with thyroid replacement therapy. Managed by PCP Hypertension, labile blood pressure Carotid art disease, history of s/p R CEA by Dr Adams on 05/26/21 at [place], [place] Mild bilat dz per u/s of 09-10-2021 Mitral regurg and mild pulm htn - Echocardiogram of 12-04-[address] Garnica showed LVEF 55-65%. LA mildly dilated. Mod to severe MR. PASP 40-45 mmHg - Echocardiogram of 09-02-20 showed LVEF 55-60%. Grade 1 diastolic dysfunction. Mild MR. AoV sclerosis with mild regurg. PASP 40-45 mmHg - sleep studies by Dr. Brown on 02-14-21 did not indicate sleep apnea - a-fib seen during the test - Echo of 12-11-22: LVEF 55-60%, mod to sev enlargement of LA, mild enlargement of RA, mild to mod MR, triv AI, L pleural eff, PASP 45-50 mmHg COPD with nocturnal hypoxemia Quit smoking when she was in her 40's Chronic, bilateral leg swelling, likely related to venous insuff Chronic scoliosis and degenerative cervical spinal disease (chronically stiff neck and shoulders) Plan: Plan: * Elec CV on 12-14-22 - maintaining SR * Continue chronic oral anticoagulation * Continue amiodarone * Acute on chronic diastolic CHF - clinically improving; shortness of breath significantly improved. * Replenish electrolytes * Monitor labs * Advise PT/OT d/t gen weakness Thank you for your consultation. Please call me if you have any questions. Danilo Garnica MD, FACP, FACC, FSCAI, FHRS, CCDS Interventional Cardiology Cardiac Electrophysiology Vascular Medicine and Endovascular Interventions Ban GARNICA MD Dec 20, 2022 17:03
[2022-12-20] MEDS: RIVAROXABAN 15 MG TABLET (XARELTO) PO SCH (17:24)
[2022-12-20 19:36] VITALS: BP 128/65
[2022-12-20] MEDS: ASPIRIN E.C. 81 MG (ECOTRIN) TAB PO SCH (20:39)
[2022-12-20] MEDS: SERTRALINE 50 MG (ZOLOFT) TABLET PO SCH (20:39)
[2022-12-20 23:23] VITALS: BP 162/69
[2022-12-21 03:28] VITALS: BP 148/60
[2022-12-21] MEDS: LEVOTHYROXINE 75 MCG (LEVOTHROID) TABLET PO SCH (05:15)
[2022-12-21] MEDS: CYANOCOBALAMIN 1,000 MCG (VITAMIN B-12) TABLET PO SCH (05:15)
[2022-12-21] MEDS: predniSONE 20 MG TAB PO SCH (05:15)
[2022-12-21 05:33] LABS: BASOPHILS % (AUTO) 0 % (0-10); EOSINOPHILS % (AUTO) 0 % (0-10); HEMATOCRIT 32 % (35-52); HEMOGLOBIN 10.6 g/dL (11.5-16.0); LYMPHOCYTES # (AUTO) 1.8 10^3/uL (1.0-4.0); LYMPHOCYTES % (AUTO) 14 % (12-44); MEAN CORPUSCULAR HEMOGLOBIN 29 pg (25-34); MEAN CORPUSCULAR HGB CONC 33 g/dL (32-36); MEAN CORPUSCULAR VOLUME 89 fL (80-99); MEAN PLATELET VOLUME 9.4 fL (9.0-12.2); MONOCYTES # (AUTO) 0.7 10^3/uL (0.0-1.0); MONOCYTES % (AUTO) 6 % (0-12); NEUTROPHILS # (AUTO) 10.3 10^3/uL (1.8-7.8); NEUTROPHILS % (AUTO) 80 % (42-75); PLATELET COUNT 318 10^3/uL (130-400)
[2022-12-21 05:49] LABS: ALBUMIN 3.3 GM/DL (3.2-4.5)
[2022-12-21 05:50] LABS: POTASSIUM 3.8 MMOL/L (3.6-5.0)
[2022-12-21 05:51] LABS: CALCIUM 8.7 MG/DL (8.5-10.1)
[2022-12-21 05:52] LABS: TOTAL PROTEIN 5.7 GM/DL (6.4-8.2)
[2022-12-21 05:54] LABS: BILIRUBIN,TOTAL 0.7 MG/DL (0.1-1.0)
[2022-12-21 05:56] LABS: CREATININE SERUM 1.01 MG/DL (0.60-1.30)
[2022-12-21 07:28] VITALS: BP 156/75
[2022-12-21] MEDS: AMIODARONE 200 MG (CORDARONE) TAB PO SCH (08:23)
[2022-12-21] MEDS: LACTULOSE SYRUP 10GM/15ML (ENULOSE) 30ML UDC PO SCH (08:23)
[2022-12-21] MEDS: KCL 20 MEQ TAB (K-DUR) PO SCH (08:23)
[2022-12-21] MEDS: FUROSEMIDE 40 MG/4 ML INJ (LASIX) IVP SCH (08:23)
[2022-12-21] MEDS: SENNOSIDES 8.6 MG (SENOKOT) TAB PO SCH (08:23)
[2022-12-21] MEDS: DOCUSATE SODIUM 100 MG (COLACE) CAP PO SCH (08:23)
[2022-12-21] MEDS: polyethylene glycoL POWDER 17 GM (MIRALAX) PACK PO SCH (08:24)
--- NOTE | 2022-12-21 09:19 | Physical Therapy Daily Note ---
PT Daily Note-Current Subjective Patient agrees to therapy. Pain Section J - Health Conditions 1. Rarely or not at all 2. Occasionally 3. Frequently 4. Almost constantly 8. Unable to answer Pain Effect on Sleep: 1 Pain Interference with Therapy: 1 Pain Interference w/Day-to-Day: 1 Transfers SCALE: Activities may be completed with or without assistive devices. 7-Nwgmdcidxn-zsvpnjr completes the activity by him/herself with no assistance from a helper. 5-Set-up or Clean-up Assistance-helper sets up or cleans up; patient completes activity. [place] assists only prior to or following the activity. 4-Supervision or Touching Assistance-helper provides verbal cues and/or touching/steadying and/or contact guard assistance as patient completes activity. Assistance may be provided throughout the activity or intermittently. 3-Partial/Moderate Assistance-helper does LESS THAN HALF the effort. [place] lifts, holds or supports trunk or limbs, but provides less than half the effort. 2-Substantial/Maximal Assistance-helper does MORE THAN HALF the effort. [place] lifts or holds trunk or limbs and provides more than half the effort. 7-Gcrxijfqi-ovwloy does ALL the effort. Patient does none of the effort to complete the activity. Or, the assistance of 2 or more helpers is required for the patient to complete the activity. If activity was not attempted, code reason: 7-Patient Refused. 9-Not Applicable-not attempted and the patient did not perform the activity before the current illness, exacerbation or injury. 10-Not Attempted due to Environmental Limitations-(lack of equipment, weather restraints, etc.). 88-Not Attempted due to Medical Conditions or Safety Concerns. Sit to Stand (QC): 4 Chair/Pie-hr-Jaeew Xfer(QC): 4 Toilet Transfer (QC): 4 Weight Bearing Right Lower Extremity: Right Full Weight Bearing Left Lower Extremity: Left Full Weight Bearing Gait Training Distance: 250' Walk 10 feet (QC): 4 Walk 50 ft with 2 Turns(QC): 4 Walk 150 ft (QC): 4 Gait Assistive Device: FWW very slow, steady gait sequence Assessment Patient is SBA with all functional mobility and tasks, however, requires time and redirection to remain and complete tasks. Patient remains up in recliner with needs met. PT Short Term Goals Short Term Goals Time Frame: Dec 17, 2022 PT Dermatologist And Dermatopathologist Goals Dermatologist And Dermatopathologist Goals PT [facility] Goals Time Frame: Jan 30, 2023 Roll Left & Right (QC): 6 Sit to Lying (QC): 6 Lying-Sitting on Side/Bed(QC): 6 Sit to Stand (QC): 6 Chair/Gnk-nj-Mivui Xfer(QC): 6 Does the Patient Walk: Yes Walk 10 feet (QC): 4 Walk 50ft with 2 Turns (QC): 4 Walk 150 ft (QC): 4 PT Plan Treatment/Plan Treatment Plan: Continue Plan of Care Treatment Plan: Bed Mobility, Education, Functional Activity Samy, Functional Strength, Group Therapy, Gait, Safety, Therapeutic Exercise, Transfers Treatment Duration: Jan 30, 2023 Frequency: 6 times per week Estimated Hrs Per Day: .25 hour per day Patient and/or Family Agrees t: Yes Time Time In: 758 Time Out: 822 DATE: Dec 21, 2022 Total Billed Treatment Time: 24 Total Billed Treatment 1 visit FA x 2 24 min MIRIAM JEWELL PT Dec 21, 2022 09:19
--- NOTE | 2022-12-21 09:20 | Occupational Ther Daily Note ---
OT Current Status-Daily Note Subjective Up in recliner, BM incont without awareness, agreeable to OT Pain Numeric Pain Scale: 0-No Pain Mental Status/Objective Patient Orientation: Person, Place, Time, Situation ADL-Treatment BM incon tin recliner, ambulation to bathroom for completion and hygiene needs. Patient requires constant simple step cues for transitional to transfer and for hand placement. Therapy Code Descriptions/Definitions Functional [place] Measure: 0=Not Assessed/NA 4=Minimal Assistance 1=Total Assistance 5=Supervision or Setup 2=Maximal Assistance 6=Modified Ogle 3=Moderate Assistance 7=Complete IndependenceSCALE: Activities may be completed with or without assistive devices. 9-Fdxnrumtys-vqxdncq completes the activity by him/herself with no assistance from a helper. 5-Set-up or Clean-up Assistance-helper sets up or cleans up; patient completes activity. [place] assists only prior to or following the activity. 4-Supervision or Touching Assistance-helper provides verbal cues and/or touching/steadying and/or contact guard assistance as patient completes activity. Assistance may be provided throughout the activity or intermittently. 3-Partial/Moderate Assistance-helper does LESS THAN HALF the effort. [place] lifts, holds or supports trunk or limbs, but provides less than half the effort. 2-Substantial/Maximal Assistance-helper does MORE THAN HALF the effort. [place] lifts or holds trunk or limbs and provides more than half the effort. 1-Fwlobozcl-exukdb does ALL the effort. Patient does none of the effort to complete the activity. Or, the assistance of 2 or more helpers is required for the patient to complete the activity. If activity was not attempted, code reason: 7-Patient Refused. 9-Not Applicable-not attempted and the patient did not perform the activity before the current illness, exacerbation or injury. 10-Not Attempted due to Environmental Limitations-(lack of equipment, weather restraints, etc.). 88-Not Attempted due to Medical Conditions or Safety Concerns. Eating (QC): 6 Oral Hygiene (QC): 6 Upper Body Dressing (QC): 5 Lower Body Dressing (QC): 5 On/Off Footwear: 5 (rolls socks to gripper side on bottom of foot.) Toileting Hygiene (QC): 4 Toilet Transfer (QC): 5 Education OT Patient Education: Correct positioning, Exercise program, Modified ADL techniques, Progress toward Goal/Update tx plan, Purpose of tx/functional activities, Reviewed precautions, Rehab process, Safety issues, Transfer techniques, Use of adapted equipment Teaching Recipient: Patient Teaching Methods: Demonstration Response to Teaching: Verbalize Understanding, Return Demonstration, Reinforcement Needed OT Short Term Goals Short Term Goals Time Frame: Dec 18, 2022 OT Log Buyer Goals [facility] Goals Eating (QC): 6 Oral Hygiene (QC): 6 Toileting Hygiene (QC): 6 Shower/Bathe Self (QC): 5 Upper Body Dressing (QC): 6 Lower Body Dressing (QC): 6 On/Off Footwear (QC): 6 1=Demonstrate adherence to instructed precautions during ADL tasks. 2=Patient will verbalize/demonstrate understanding of assistive devices/modifications for ADL. 3=Patient will improve strength/tolerance for activity to enable patient to perform ADL's. OT Education/Plan Problem List/Assessment Assessment: Decreased Activ Tolerance, Impaired Self-Care Skills Discharge Recommendations Plan/Recommendations: Continue POC Treatment Plan/Plan of Care Treatment,Training & Education: Yes Patient would benefit from OT for education, treatment and training to promote independence in ADL's, mobility, safety and/or upper extremity function for ADL's. Plan of Care: ADL Retraining, Functional Mobility, Group Exercise/Act as Ind, UE Funct Exercise/Act Treatment Duration: Dec 22, 2022 Frequency: 3 times per week (3-5 times per week) Estimated Hrs Per Day: .25 hour per day Agreement: Yes Rehab Potential: Guarded Time Start Time: 07:58 Stop Time: 08:21 DATE: Dec 21, 2022 Total Time Billed (hr/min): 23 Billed Treatment Time ADL 2 23 min FELICIANO JOHNSON OT Dec 21, 2022 09:20
[2022-12-21] MEDS: RT-ALBUTEROL/IPRATROPIUM 3 ML (DUONEB) VIAL INH SCH (09:37)
[2022-12-21] MEDS: RT-BUDESONIDE NEBS 0.5 MG/2ML (PULMICORT) AMP IH SCH (09:37)
[2022-12-21] MEDS ORDERED: IPRA3AMP31 INH (09:49)
[2022-12-21] MEDS ORDERED: ATOR20TA66 PO (09:49)
[2022-12-21] MEDS ORDERED: RIVA15TA2 PO (09:49)
[2022-12-21] MEDS ORDERED: CYAN500T8 PO (09:49)
[2022-12-21] MEDS ORDERED: RT-ALBUINH INH (09:49)
[2022-12-21] MEDS ORDERED: ACET325T38 PO (09:49)
[2022-12-21] MEDS ORDERED: FORM20VI3 IH (09:49)
[2022-12-21] MEDS ORDERED: POLY17PO6 PO (09:49)
[2022-12-21] MEDS ORDERED: ASPI-1238 PO (09:49)
[2022-12-21] MEDS ORDERED: CHOL20002 PO (09:49)
[2022-12-21] MEDS ORDERED: AMIO200T65 PO (09:49)
[2022-12-21] MEDS ORDERED: SERT-412 PO (09:49)
[2022-12-21] MEDS ORDERED: PRD20T PO (09:49)
[2022-12-21] MEDS ORDERED: LEVO88TA2 PO (09:49)
[2022-12-21] MEDS ORDERED: BIFI10.5 PO (09:49)
[2022-12-21] MEDS ORDERED: BUDE0.5A IH (09:49)
[2022-12-21] MEDS ORDERED: POTA-169 PO (09:49)
[2022-12-21] MEDS ORDERED: LEVO75TA PO (09:49)
--- NOTE | 2022-12-21 09:51 | Discharge Inst-Skilled Nursing ---
Discharge Inst-Skilled NF Reconcile Patient Problems Problems Reviewed?: Yes Patient Instructions Patient Problems: Debility Resp failure Consult/Follow Up/Orders Follow Up Appt.: PCP 1 week Skilled NF Admit to: [facility] Certification ([facility]) I certify that [facility] services are required to be given on an inpatient basis because of the above named patient's need for alf care on a continuing basis for the conditions(s) for which he/she was receiving inpatient hospital services prior to his/her transfer to the [facility]. Group Home Facility Order: Nursing Services, [employer]-Evaluate & Treat, Physical Therapy-Evaluate & Treat Oxygen Delivery Method: High Flow N/C Discharge Diet: No Restrictions Resuscitation Status: Full Code New & Resume Previous Orders New Medications: Amiodarone HCl (Amiodarone HCl) 200 Mg Tablet 400 MG PO BID, #60 TAB Ipratropium/Albuterol Sulfate (Iprat-Albut 0.5-3(2.5) mg/3 ml) 0.5 Mg-3 Mg (2.5 Mg Base)/3 Ml Ampul.neb 3 ML INH RTBID, #60 INHALER Potassium Chloride (Klor-Con M20) 20 Meq Tab.er.prt 20 MEQ PO DAILY@0900, #30 EA Prednisone (Prednisone) 20 Mg Tab 20 MG PO DAILY@0700, #4 TAB Changed Medications: Sertraline HCl (Sertraline HCl) 25 Mg Tablet 12.5 MG PO HS, #30 TAB (Changed from: Removed Instructions) Continued Medications: Acetaminophen (Tylenol) 325 Mg Tablet 325 MG PO Q4H PRN for PAIN-MILD (1-4), #30 TAB (This prescription has been renewed) Albuterol Sulfate (Ventolin Hfa) 1 Puff Puff 2 PUFF INH Q4H PRN for SHORTNESS OF BREATH, #1 EA (This prescription has been renewed) Aspirin (Aspirin EC) 81 Mg Tablet.dr 81 MG PO HS, #30 TAB (This prescription has been renewed) Atorvastatin Calcium (Atorvastatin Calcium) 20 Mg Tablet 20 MG PO HS, #30 TAB (This prescription has been renewed) Bifidobacterium Infantis (Align) 10.5 Mg (10 Million Cell) Tab.chew 10.5 MG PO HS, #30 TAB (This prescription has been renewed) Budesonide (Budesonide) 0.5 Mg/2 Ml Ampul.neb 0.5 MG IH Q12H, #60 EA (This prescription has been renewed) Cholecalciferol (Vitamin D3) (Vitamin D3) 50 Mcg (2000 Unit) Capsule 50 MCG PO DAILY, #30 CAP (This prescription has been renewed) Cyanocobalamin (Vitamin B-12) (Vitamin B-12) 500 Mcg Tablet 500 MCG PO HS, #30 TAB (This prescription has been renewed) Formoterol Fumarate (Formoterol Fumarate) 20 Mcg/2 Ml Vial.neb 20 MCG IH Q12H, #1 EA (This prescription has been renewed) Levothyroxine Sodium (Synthroid) 75 Mcg Tablet 75 MCG PO ,,, #30 TAB (This prescription has been renewed) Levothyroxine Sodium (Synthroid) 88 Mcg Tablet 88 MCG PO ,,,SA, #30 TAB (This prescription has been renewed) Polyethylene Glycol 3350 (Miralax) 17 Gram Powd.pack 17 GM PO DAILY, #30 EACH (This prescription has been renewed) Rivaroxaban (Xarelto Tablet) 15 Mg Tablet 15 MG PO 1800, #30 TAB (This prescription has been renewed) Discontinued Medications: Cholecalciferol (Vitamin D3) (Vitamin D3) 25 Mcg (1000 Unit) Capsule 25 MCG PO HS, CAP Diltiazem HCl (Diltiazem 24Hr ER) 180 Mg Cap.er.24h 180 MG PO 2100, CAP Flecainide Acetate (Flecainide Acetate) 100 Mg Tablet 100 MG PO 0800,1600, TAB Fluocinonide (Fluocinonide) 0.05 % Gel..gram. 1 APPLIC TOP DAILY PRN for RASH, EA Melina Benjamin Dec 21, 2022 09:49 MELINA BENJAMIN DO Dec 21, 2022 09:51
[2022-12-21] MEDS ORDERED: FURO-124 PO (09:52)
--- NOTE | 2022-12-21 09:53 | Discharge Summary ---
Diagnosis/Chief Complaint Date of Admission Dec 10, 2022 at 17:24 Date of Discharge Discharge Date: Dec 21, 2022 Discharge Diagnosis Assessment: Acute hypoxic hypercapneic resp failure requiring biPAP Congestive heart failure myopathy HAP Atrial fibrillation s/p cardioversion 11/16/22 Oral anticoagulation Hypothyroidism Hypertension Falls Recent left leg pain due to fall with hematoma from oral anticoagulation Orthostasis with near syncope on 11/11/22 Left-sided sciatica Discharge Summary Discharge Physical Examination Allergies: Coded Allergies: codeine (Unverified Allergy, Mild, Vomiting, 02/18/22) adhesive tape (Unverified Allergy, Unknown, 02/18/22) amoxicillin (Unverified Allergy, Unknown, 02/18/22) Vitals & I&Os Vital Signs Date Time Temp Pulse Resp B/P (MAP) Pulse Ox O2 Delivery O2 Flow Rate FiO2 12/21/22 14:00 37.1 67 20 113/80 97 High Flow N/C 3.00 12/16/22 09:12 32 General Appearance: Alert, Oriented X3, Cooperative Respiratory: Clear to Auscultation Cardiovascular: Regular Rate Psych/Mental Status: Mental Status NL Hospital Course Was the Problem List Reviewed?: Yes Patient seen and examined at bedside this morning. Reports improved breathing still on 2L by nasal cannula. She denies any chest pain or palpitations. Reports she is ready to go to back to [facility] today. Urine output appropriate with catheter still in place. Will do home O2 eval due to new oxygen requirements. Hospital Course: Tanna Mendoza was admitted for CHF exacerbation, acute respiratory failure, Afib with RVR, COPD exacerbation HPI from admission "Tanna Mendoza is a 82yo F with past medical hx of COPD, CHF, HLD, hypothyroidism, afib, and carotid stenosis who presented to the ED on 12/10 after presenting to her primary care provider with a 1 week history of worsening shortness of breath. She was found to be in afib w RVR and showed bibasilar infiltrates on CXR. Her BNP was elevated to 652. She was placed on bipap overnight with improvement in her oxygenation. She was admitted to the ICU for management of her afib w RVR and volume overload. This morning she is off bipap now on nasal cannula and reports breathing better and feeling less short of breath. Her symptoms began about 1 week ago with shortness of breath requiring her to wear oxygen at all times when she usually wears it at night only. She also noticed some LE swelling that began a few days ago. She recalls being around a sick contact at her facility about 1 week ago. She never felt any fever or upper respiratory infection symptoms. She does not any palpitations or chest pain. She has gone into RVR in the past and does not notice when she does. No N/V/D or fever/chills." She was treated with diuretics and urine output was monitored closely with gradual decrease in her shortness of breath, improvement of CXR findings, and less O2 requirements. She was treated with duonebs, budesonide, and prednisone with improvement in breathing and cough. She was initially tachycardic. Cardiology switched her home flecainide to amiodarone which controlled rate. She was successfully cardioverted on 12/14 and remained in sinus rhythm with appropriate rate afterwards. Maintain oral anticoagulation. Echo revealed normal EF with atrial enlargement and pulmonary hypertension. She developed bibasilar infiltrates on cxr and was treated with a course of cefepime. Vitals and labs remained stable with no signs of sepsis and/or shock. She was moved out of the ICU and transferred to 4th floor on 12/16 with improvement of her condition. She began working with PT/OT on the floor to improve strength and function. She is being discharged on 12/21 to [facility] with close follow up with her PCP and cardiology. Will likely need around the clock O2 instead of just at night while she continues to recover. Labs (last 24 hrs) Laboratory Tests 12/10/22 15:35: White Blood Count 10.1, Red Blood Count 4.00, Hemoglobin 11.7, Hematocrit 36, Mean Corpuscular Volume 91, Mean Corpuscular Hemoglobin 29, Mean Corpuscular Hemoglobin Concent 32, Red Cell Distribution Width 13.2, Platelet Count 352, Mean Platelet Volume 8.6L, Immature Granulocyte % (Auto) 0, Neutrophils (%) (Auto) 83H, Lymphocytes (%) (Auto) 8L, Monocytes (%) (Auto) 8, Eosinophils (%) (Auto) 1, Basophils (%) (Auto) 0, Neutrophils # (Auto) 8.4H, Lymphocytes # (Auto) 0.9L, Monocytes # (Auto) 0.8, Eosinophils # (Auto) 0.1, Basophils # (Auto) 0.0, Immature Granulocyte # (Auto) 0.0, Neutrophils % (Manual) 88, Lymphocytes % (Manual) 4, Monocytes % (Manual) 3, Eosinophils % (Manual) 1, Band Neutrophils 4, Acanthocytes SLIGHT, Sodium Level 133L, Potassium Level 3.8, Chloride Level 94L, Carbon Dioxide Level 26, Anion Gap 13, Blood Urea Nitrogen 11, Creatinine 0.74, Estimat Glomerular Filtration Rate 81, BUN/Creatinine Ratio 15, Glucose Level 111H, Lactic Acid Level 1.05, Calcium Level 9.8, Corrected Calcium 9.6, Total Bilirubin 1.1H, Aspartate Amino Transf (AST/SGOT) 28, Alanine Aminotransferase (ALT/SGPT) 21, Alkaline Phosphatase 100, Troponin I < 0.028, B- Type Natriuretic Peptide 652.2H, Total Protein 7.6, Albumin 4.2 12/10/22 15:53: Blood Gas Puncture Site RIGHT RADIAL, Blood Gas Patient Temperature 37.0, Arterial Blood pH 7.38, Arterial Blood Partial Pressure CO2 51H, Arterial Blood Partial Pressure O2 77L, Arterial Blood HCO3 29H, Arterial Blood Total CO2 30.6, Arterial Blood Oxygen Saturation 95, Arterial Blood Base Excess 4.2H, Steven Test N/A, Blood Gas Ventilator Setting NO, Blood Gas Inspired Oxygen 30% 12/10/22 16:59: SARS-CoV-2 RNA (RT-PCR) Not Detected 12/11/22 04:20: White Blood Count 5.0, Red Blood Count 3.38L, Hemoglobin 10.0L, Hematocrit 30L, Mean Corpuscular Volume 89, Mean Corpuscular Hemoglobin 30, Mean Corpuscular Hemoglobin Concent 33, Red Cell Distribution Width 13.2, Platelet Count 273, Me an Platelet Volume 8.8L, Immature Granulocyte % (Auto) 1, Neutrophils (%) (Auto) 92H, Lymphocytes (%) (Auto) 6L, Monocytes (%) (Auto) 2, Eosinophils (%) (Auto) 0, Basophils (%) (Auto) 0, Neutrophils # (Auto) 4.6, Lymphocytes # (Auto) 0.3L, Monocytes # (Auto) 0.1, Eosinophils # (Auto) 0.0, Basophils # (Auto) 0.0, Immature Granulocyte # (Auto) 0.0, Sodium Level 133L, Potassium Level 3.5L, Chloride Level 97L, Carbon Dioxide Level 24, Anion Gap 12, Blood Urea Nitrogen 12, Creatinine 0.73, Estimat Glomerular Filtration Rate 82, BUN/Creatinine Ratio 16, Glucose Level 141H, Calcium Level 8.6, Corrected Calcium 9.2, Total Bilirubin 0.9, Aspartate Amino Transf (AST/SGOT) 21, Alanine Aminotransferase (ALT/SGPT) 18, Alkaline Phosphatase 80, Total Protein 5.8L, Albumin 3.3, Phosphorus Level 4.0, Magnesium Level 1.9 12/11/22 04:24: Blood Gas Puncture Site RR, Blood Gas Patient Temperature 36.4, Arterial Blood pH 7.45H, Arterial Blood Partial Pressure CO2 46H, Arterial Blood Partial Pressure O2 59L, Arterial Blood HCO3 32H, Arterial Blood Total CO2 33.2H, Arterial Blood Oxygen Saturation 94, Arterial Blood Base Excess 7.4H, Steven Test YES-POS, Blood Gas Ventilator Setting NO, Blood Gas Inspired Oxygen 30% 12/12/22 04:42: White Blood Count 18.5H, Red Blood Count 3.51L, Hemoglobin 10.4L, Hematocrit 31L , Mean Corpuscular Volume 89, Mean Corpuscular Hemoglobin 30, Mean Corpuscular Hemoglobin Concent 33, Red Cell Distribution Width 13.4, Platelet Count 329, Mean Platelet Volume 8.9L, Immature Granulocyte % (Auto) 1, Neutrophils (%) (Auto) 93H, Lymphocytes (%) (Auto) 2L, Monocytes (%) (Auto) 4, Eosinophils (%) (Auto) 0, Basophils (%) (Auto) 0, Neutrophils # (Auto) 17.2H, Lymphocytes # (Auto) 0.4L, Monocytes # (Auto) 0.7, Eosinophils # (Auto) 0.0, Basophils # (Auto) 0.0, Immature Granulocyte # (Auto) 0.1, Sodium Level 132L, Potassium Level 3.7, Chloride Level 97L, Carbon Dioxide Level 24, Anion Gap 11, Blood Urea Nitrogen 19H, Creatinine 0.86, Estimat Glomerular Filtration Rate 67, BUN/Creatinine Ratio 22, Glucose Level 134H, Calcium Level 8.7, Corrected Calcium 9.1, Phosphorus Level 3.6, Magnesium Level 2.2, Total Bilirubin 0.8, Aspartate Amino Transf (AST/SGOT) 20, Alanine Aminotransferase (ALT/SGPT) 20, Alkaline Phosphatase 77, Total Protein 6.2L, Albumin 3.5 12/13/22 04:44: White Blood Count 17.5H, Red Blood Count 3.86, Hemoglobin 11.3L, Hematocrit 35, Mean Corpuscular Volume 90, Mean Corpuscular Hemoglobin 29, Mean Corpuscular Hemoglobin Concent 33, Red Cell Distribution Width 13.7, Platelet Count 338, Mean Platelet Volume 9.0, Immature Granulocyte % (Auto) 1, Neutrophils (%) (Auto) 92H, Lymphocytes (%) (Auto) 3L, Monocytes (%) (Auto) 4, Eosinophils (%) (Auto) 1, Basophils (%) (Auto) 0, Neutrophils # (Auto) 16.1H, Lymphocytes # (Auto) 0.4L, Monocytes # (Auto) 0.7, Eosinophils # (Auto) 0.2, Basophils # (Auto ) 0.0, Immature Granulocyte # (Auto) 0.1, Sodium Level 135, Potassium Level 3.7, Chloride Level 97L, Carbon Dioxide Level 25, Anion Gap 13, Blood Urea Nitrogen 22H, Creatinine 0.85, Estimat Glomerular Filtration Rate 68, BUN/Creatinine Ratio 26, Glucose Level 116H, Calcium Level 8.9, Corrected Calcium 9.3, Phosphorus Level 3.9, Magnesium Level 2.2, Total Bilirubin 0.7, Aspartate Amino Transf (AST/SGOT) 23, Alanine Aminotransferase (ALT/SGPT) 21, Alkaline Phosphatase 81, Total Protein 6.4, Albumin 3.5 12/14/22 03:47: White Blood Count 16.1H, Red Blood Count 3.86, Hemoglobin 11.2L, Hematocrit 35, Mean Corpuscular Volume 89, Mean Corpuscular Hemoglobin 29, Mean Corpuscular Hemoglobin Concent 33, Red Cell Distribution Width 13.7, Platelet Count 364, Mean Platelet Volume 9.2, Immature Granulocyte % (Auto) 1, Neutrophils (%) (Auto) 89H, Lymphocytes (%) (Auto) 4L, Monocytes (%) (Auto) 5, Eosinophils (%) (Auto) 0, Basophils (%) (Auto) 0, Neutrophils # (Auto) 14.4H, Lymphocytes # (Auto) 0.7L, Monocytes # (Auto) 0.9, Eosinophils # (Auto) 0.1, Basophils # (Auto) 0.0, Immature Granulocyte # (Auto) 0.1, Sodium Level 135, Potassium Level 3.9, Chloride Level 96L, Carbon Dioxide Level 29, Anion Gap 10, Blood Urea Nitrogen 25H, Creatinine 0.87, Estimat Glomerular Filtration Rate 66, BUN/Creatinine Ratio 29, Glucose Level 114H, Calcium Level 8.9, Corrected Calcium 9.3, Phosphorus Level 3.3, Magnesium Level 2.0, Total Bilirubin 0.8, Aspartate Amino Transf (AST/SGOT) 27, Alanine Aminotransferase (ALT/SGPT) 27, Alkaline Phosphatase 76, Total Protein 6.1L, Albumin 3.5 12/15/22 03:39: White Blood Count 11.2H, Red Blood Count 4.00, Hemoglobin 11.6, Hematocrit 36, Mean Corpuscular Volume 90, Mean Corpuscular Hemoglobin 29, Mean Corpuscular Hemoglobin Concent 32, Red Cell Distribution Width 13.7, Platelet Count 323, Mean Platelet Volume 9.3, Immature Granulocyte % (Auto) 1, Neutrophils (%) (Auto) 91H, Lymphocytes (%) (Auto) 4L, Monocytes (%) (Auto) 4, Eosinophils (%) (Auto) 0, Basophils (%) (Auto) 0, Neutrophils # (Auto) 10.1H, Lymphocytes # (Auto) 0.5L, Monocytes # (Auto) 0.5, Eosinophils # (Auto) 0.0, Basophils # (Auto) 0.0, Immature Granulocyte # (Auto) 0.1, Sodium Level 136, Potassium Level 3.8, Chloride Level 96L, Carbon Dioxide Level 29, Anion Gap 11, Blood Urea Nitrogen 27H, Creatinine 0.89, Estimat Glomerular Filtration Rate 65, BUN/Creatinine Ratio 30, Glucose Level 117H, Calcium Level 8.9, Corrected Calcium 9.2, Phosphorus Level 3.5, Magnesium Level 2.1, Total Bilirubin 0.9, Aspartate Amino Transf (AST/SGOT) 22, Alanine Aminotransferase (ALT/SGPT) 26, Alkaline Phosphatase 72, Total Protein 6.3L, Albumin 3.6 12/16/22 03:00: White Blood Count 16.5H, Red Blood Count 3.85, Hemoglobin 10.9L, Hematocrit 35, Mean Corpuscular Volume 90, Mean Corpuscular Hemoglobin 28, Mean Corpuscular Hemoglobin Concent 32, Red Cell Distribution Width 13.8, Platelet Count 325, Mean Platelet Volume 8.9L, Immature Granulocyte % (Auto) 1, Neutrophils (%) (Auto) 91H, Lymphocytes (%) (Auto) 3L, Monocytes (%) (Auto) 5, Eosinophils (%) (Auto) 0, Basophils (%) (Auto) 0, Neutrophils # (Auto) 15.1H, Lymphocytes # (Auto) 0.5L, Monocytes # (Auto) 0.8, Eosinophils # (Auto) 0.0, Basophils # (Auto) 0.0, Immature Granulocyte # (Auto) 0.1, Sodium Level 137, Potassium Level 4.2, Chloride Level 94L, Carbon Dioxide Level 34H, Anion Gap 9, Blood Urea Nitrogen 36H, Creatinine 0.78, Estimat Glomerular Filtration Rate 76, BUN /Creatinine Ratio 46, Glucose Level 110H, Calcium Level 9.4, Corrected Calcium 10.0, Phosphorus Level 2.8, Magnesium Level 2.1, Total Bilirubin 0.8, Aspartate Amino Transf (AST/SGOT) 19, Alanine Aminotransferase (ALT/SGPT) 21, Alkaline Phosphatase 71, Total Protein 5.9L, Albumin 3.3, Neutrophils % (Manual) 92, Lymphocytes % (Manual) 3, Monocytes % (Manual) 5, Hypochromasia SLIGHT 12/17/22 05:28: White Blood Count 14.4H, Red Blood Count 3.61L, Hemoglobin 10.4L, Hematocrit 32L , Mean Corpuscular Volume 90, Mean Corpuscular Hemoglobin 29, Mean Corpuscular Hemoglobin Concent 32, Red Cell Distribution Width 13.9, Platelet Count 292, Mean Platelet Volume 8.8L, Immature Granulocyte % (Auto) 1, Neutrophils (%) (Auto) 78H, Lymphocytes (%) (Auto) 12, Monocytes (%) (Auto) 8, Eosinophils (%) (Auto) 2, Basophils (%) (Auto) 0, Neutrophils # (Auto) 11.2H, Lymphocytes # (Auto) 1.7, Monocytes # (Auto) 1.1H, Eosinophils # (Auto) 0.3, Basophils # ( Auto) 0.0, Immature Granulocyte # (Auto) 0.1, Sodium Level 138, Potassium Level 3.2L, Chloride Level 93L, Carbon Dioxide Level 35H, Anion Gap 10, Blood Urea Nitrogen 30H, Creatinine 0.83, Estimat Glomerular Filtration Rate 70, BUN/Creatinine Ratio 36, Glucose Level 95, Calcium Level 8.8, Corrected Calcium 9.4, Magnesium Level 2.0, Total Bilirubin 0.9, Aspartate Amino Transf (AST/SGOT) 17, Alanine Aminotransferase (ALT/SGPT) 18, Alkaline Phosphatase 66, Total Protein 5.6L, Albumin 3.2 12/18/22 03:55: White Blood Count 13.0H, Red Blood Count 3.51L, Hemoglobin 10.1L, Hematocrit 31L , Mean Corpuscular Volume 89, Mean Corpuscular Hemoglobin 29, Mean Corpuscular Hemoglobin Concent 33, Red Cell Distribution Width 14.2, Platelet Count 305, Mean Platelet Volume 9.2, Immature Granulocyte % (Auto) 1, Neutrophils (%) (Auto) 83H, Lymphocytes (%) (Auto) 8L, Monocytes (%) (Auto) 8, Eosinophils (%) (Auto) 0, Basophils (%) (Auto) 0, Neutrophils # (Auto) 10.8H, Lymphocytes # (Auto) 1.1, Monocytes # (Auto) 1.0, Eosinophils # (Auto) 0.0, Basophils # (Auto) 0.0, Immature Granulocyte # (Auto) 0.1, Sodium Level 137, Potassium Level 3.4L, Chloride Level 92L, Carbon Dioxide Level 35H, Anion Gap 10, Blood Urea Nitrogen 39H, Creatinine 0.88, Estimat Glomerular Filtration Rate 66, BUN/Creatinine Ratio 44, Glucose Level 103, Calcium Level 9.4, Corrected Calcium 10.0, Magnesium Level 2.0, Total Bilirubin 0.8, Aspartate Amino Transf (AST/SGOT) 21, Alanine Aminotransferase (ALT/SGPT) 19, Alkaline Phosphatase 67, Total Protein 5.9L, Albumin 3.3 12/19/22 03:34: White Blood Count 12.3H, Red Blood Count 3.43L, Hemoglobin 9.9L, Hematocrit 31L, Mean Corpuscular Volume 90, Mean Corpuscular Hemoglobin 29, Mean Corpuscular Hemoglobin Concent 32, Red Cell Distribution Width 14.4, Platelet Count 292, Mean Platelet Volume 9.3, Immature Granulocyte % (Auto) 1, Neutrophils (%) (Auto) 79H, Lymphocytes (%) (Auto) 13, Monocytes (%) (Auto) 7, Eosinophils (%) (Auto) 0, Basophils (%) (Auto) 0, Neutrophils # (Auto) 9.7H, Lymphocytes # (Auto) 1.6, Monocytes # (Auto) 0.9, Eosinophils # (Auto) 0.0, Basophils # (Auto) 0.0, Immature Granulocyte # (Auto) 0.1, Sodium Level 138, Potassium Level 3.7, Chloride Level 95L, Carbon Dioxide Level 32, Anion Gap 11, Blood Urea Nitrogen 33H, Creatinine 0.85, Estimat Glomerular Filtration Rate 68, BUN/Creatinine Ratio 39, Glucose Level 91, Calcium Level 9.1, Corrected Calcium 9.6, Magnesium Level 2.1, Total Bilirubin 0.8, Aspartate Amino Transf (AST/SGOT) 25, Alanine Aminotransferase (ALT/SGPT) 22, Alkaline Phosphatase 62, Total Protein 6.1L, Albumin 3.4 12/20/22 06:08: White Blood Count 11.3H, Red Blood Count 3.31L, Hemoglobin 9.5L, Hematocrit 30L, Mean Corpuscular Volume 89, Mean Corpuscular Hemoglobin 29, Mean Corpuscular Hemoglobin Concent 32, Red Cell Distribution Width 14.5, Platelet Count 290, Mean Platelet Volume 9.0, Immature Granulocyte % (Auto) 1, Neutrophils (%) (Auto) 74, Lymphocytes (%) (Auto) 18, Monocytes (%) (Auto) 7, Eosinophils (%) (Auto) 1, Basophils (%) (Auto) 0, Neutrophils # (Auto) 8.4H, Lymphocytes # (Au to) 2.0, Monocytes # (Auto) 0.8, Eosinophils # (Auto) 0.1, Basophils # (Auto) 0.0, Immature Granulocyte # (Auto) 0.1, Sodium Level 138, Potassium Level 3.5L, Chloride Level 95L, Carbon Dioxide Level 34H, Anion Gap 9, Blood Urea Nitrogen 38H, Creatinine 0.87, Estimat Glomerular Filtration Rate 66, BUN/Creatinine Ratio 44, Glucose Level 85, Calcium Level 8.6, Corrected Calcium 9.2, Magnesium Level 2.0, Total Bilirubin 0.7, Aspartate Amino Transf (AST/SGOT) 21, Alanine Aminotransferase (ALT/SGPT) 21, Alkaline Phosphatase 56, Total Protein 5.2L, Albumin 3.2 12/21/22 05:20: White Blood Count 13.0H, Red Blood Count 3.62L, Hemoglobin 10.6L, Hematocrit 32L , Mean Corpuscular Volume 89, Mean Corpuscular Hemoglobin 29, Mean Corpuscular Hemoglobin Concent 33, Red Cell Distribution Width 14.5, Platelet Count 318, Mean Platelet Volume 9.4, Immature Granulocyte % (Auto) 1, Neutrophils (%) (Auto) 80H, Lymphocytes (%) (Auto) 14, Monocytes (%) (Auto) 6, Eosinophils (%) (Auto) 0, Basophils (%) (Auto) 0, Neutrophils # (Auto) 10.3H, Lymphocytes # (Auto) 1.8, Monocytes # (Auto) 0.7, Eosinophils # (Auto) 0.0, Basophils # (Auto) 0.0, Immature Granulocyte # (Auto) 0.1, Sodium Level 137, Potassium Level 3.8, Chloride Level 95L, Carbon Dioxide Level 32, Anion Gap 10, Blood Urea Nitrogen 36H, Creatinine 1.01, Estimat Glomerular Filtration Rate 56, BUN/Creatinine Ratio 36, Glucose Level 82, Calcium Level 8.7, Corrected Calcium 9.3, Magnesium Level 2.0, Total Bilirubin 0.7, Aspartate Amino Transf (AST/SGOT) 28, Alanine Aminotransferase (ALT/SGPT) 23, Alkaline Phosphatase 57, Total Protein 5.7L, Albumin 3.3 Microbiology 12/10/22 MRSA Screen - Final, Complete MRSA not isolated 12/10/22 Blood Culture - Final, Complete No growth Pending Labs Microbiology Date/Time Source Procedure Growth Status 12/10/22 19:10 Nasal MRSA Screen - Final MRSA not isolated Complete 12/10/22 16:51 Peripheral Rt Hand Blood Culture - Final No growth Complete 12/10/22 15:35 Peripheral Lt Ac Blood Culture - Final No growth Complete Laboratory Tests 12/10/22 15:35: White Blood Count 10.1, Red Blood Count 4.00, Hemoglobin 11.7, Hematocrit 36, Mean Corpuscular Volume 91, Mean Corpuscular Hemoglobin 29, Mean Corpuscular Hemoglobin Concent 32, Red Cell Distribution Width 13.2, Platelet Count 352, Mean Platelet Volume 8.6, Immature Granulocyte % (Auto) 0, Neutrophils (%) (Auto) 83, Lymphocytes (%) (Auto) 8, Monocytes (%) (Auto) 8, Eosinophils (%) (Auto) 1, Basophils (%) (Auto) 0, Neutrophils # (Auto) 8.4, Lymphocytes # (Auto) 0.9, Monocytes # (Auto) 0.8, Eosinophils # (Auto) 0.1, Basophils # (Auto) 0.0, Immature Granulocyte # (Auto) 0.0, Neutrophils % (Manual) 88, Lymphocytes % (Manual) 4, Monocytes % (Manual) 3, Eosinophils % (Manual) 1, Band Neutrophils 4, Acanthocytes SLIGHT, Sodium Level 133, Potassium Level 3.8, Chloride Level 94, Carbon Dioxide Level 26, Anion Gap 13, Blood Urea Nitrogen 11, Creatinine 0.74, Estimat Glomerular Filtration Rate 81, BUN/Creatinine Ratio 15, Glucose Level 111, Lactic Acid Level 1.05, Calcium Level 9.8, Corrected Calcium 9.6, Tot al Bilirubin 1.1, Aspartate Amino Transf (AST/SGOT) 28, Alanine Aminotransferase (ALT/SGPT) 21, Alkaline Phosphatase 100, Troponin I < 0.028, B-Type Natriuretic Peptide 652.2, Total Protein 7.6, Albumin 4.2 12/10/22 15:53: Blood Gas Puncture Site RIGHT RADIAL, Blood Gas Patient Temperature 37.0, Arterial Blood pH 7.38, Arterial Blood Partial Pressure CO2 51, Arterial Blood Partial Pressure O2 77, Arterial Blood HCO3 29, Arterial Blood Total CO2 30.6, Arterial Blood Oxygen Saturation 95, Arterial Blood Base Excess 4.2, Steven Test N/A, Blood Gas Ventilator Setting NO, Blood Gas Inspired Oxygen 30% 12/10/22 16:59: SARS-CoV-2 RNA (RT-PCR) Not Detected 12/11/22 04:20: White Blood Count 5.0, Red Blood Count 3.38, Hemoglobin 10.0, Hematocrit 30, Mean Corpuscular Volume 89, Mean Corpuscular Hemoglobin 30, Mean Corpuscular Hemoglobin Concent 33, Red Cell Distribution Width 13.2, Platelet Count 273, Mean Platelet Volume 8.8, Immature Granulocyte % (Auto) 1, Neutrophils (%) (Auto) 92, Lymphocytes (%) (Auto) 6, Monocytes (%) (Auto) 2, Eosinophils (%) (Auto) 0, Basophils (%) (Auto) 0, Neutrophils # (Auto) 4.6, Lymphocytes # (Auto) 0.3, Monocytes # (Auto) 0.1, Eosinophils # (Auto) 0.0, Basophils # (Auto) 0.0, Immature Granulocyte # (Auto) 0.0, Sodium Level 133, Potassium Level 3.5, Chloride Level 97, Carbon Dioxide Level 24, Anion Gap 12, Blood Urea Nitrogen 12, Creatinine 0.73, Estimat Glomerular Filtration Rate 82, BUN/Creatinine Ratio 16, Glucose Level 141, Calcium Level 8.6, Corrected Calcium 9.2, Total Bilirubin 0.9, Aspartate Amino Transf (AST/SGOT) 21, Alanine Aminotransferase (ALT/SGPT) 18, Alkaline Phosphatase 80, Total Protein 5.8, Albumin 3.3, Phosphorus Level 4.0, Magnesium Level 1.9 12/11/22 04:24: Blood Gas Puncture Site RR, Blood Gas Patient Temperature 36.4, Arterial Blood pH 7.45, Arterial Blood Partial Pressure CO2 46, Arterial Blood Partial Pressure O2 59, Arterial Blood HCO3 32, Arterial Blood Total CO2 33.2, Arterial Blood Oxygen Saturation 94, Arterial Blood Base Excess 7.4, Steven Test YES-POS, Blood Gas Ventilator Setting NO, Blood Gas Inspired Oxygen 30% 12/12/22 04:42: White Blood Count 18.5, Red Blood Count 3.51, Hemoglobin 10.4, Hematocrit 31, Mean Corpuscular Volume 89, Mean Corpuscular Hemoglobin 30, Mean Corpuscular Hemoglobin Concent 33, Red Cell Distribution Width 13.4, Platelet Count 329, Mean Platelet Volume 8.9, Immature Granulocyte % (Auto) 1, Neutrophils (%) (Auto) 93, Lymphocytes (%) (Auto) 2, Monocytes (%) (Auto) 4, Eosinophils (%) (Auto) 0, Basophils (%) (Auto) 0, Neutrophils # (Auto) 17.2, Lymphocytes # (Auto) 0.4, Monocytes # (Auto) 0.7, Eosinophils # (Auto) 0.0, Basophils # (Auto) 0.0, Immature Granulocyte # (Auto) 0.1, Sodium Level 132, Potassium Level 3.7, Chloride Level 97, Carbon Dioxide Level 24, Anion Gap 11, Blood Urea Nitrogen 19, Creatinine 0.86, Estimat Glomerular Filtration Rate 67, BUN/Creatinine Ratio 22, Glucose Level 134, Calcium Level 8.7, Corrected Calcium 9.1, Phosphorus Le cathy 3.6, Magnesium Level 2.2, Total Bilirubin 0.8, Aspartate Amino Transf (AST/SGOT) 20, Alanine Aminotransferase (ALT/SGPT) 20, Alkaline Phosphatase 77, Total Protein 6.2, Albumin 3.5 12/13/22 04:44: White Blood Count 17.5, Red Blood Count 3.86, Hemoglobin 11.3, Hematocrit 35, Mean Corpuscular Volume 90, Mean Corpuscular Hemoglobin 29, Mean Corpuscular Hemoglobin Concent 33, Red Cell Distribution Width 13.7, Platelet Count 338, Mean Platelet Volume 9.0, Immature Granulocyte % (Auto) 1, Neutrophils (%) (Auto) 92, Lymphocytes (%) (Auto) 3, Monocytes (%) (Auto) 4, Eosinophils (%) (Auto) 1, Basophils (%) (Auto) 0, Neutrophils # (Auto) 16.1, Lymphocytes # (Auto) 0.4, Monocytes # (Auto) 0.7, Eosinophils # (Auto) 0.2, Basophils # (Auto) 0.0, Immature Granulocyte # (Auto) 0.1, Sodium Level 135, Potassium Level 3.7, Chloride Level 97, Carbon Dioxide Level 25, Anion Gap 13, Blood Urea Nitrogen 22, Creatinine 0.85, Estimat Glomerular Filtration Rate 68, BUN/Creatinine Ratio 26, Glucose Level 116, Calcium Level 8.9, Corrected Calcium 9.3, Phosphorus Level 3.9, Magnesium Level 2.2, Total Bilirubin 0.7, Aspartate Amino Transf ( AST/SGOT) 23, Alanine Aminotransferase (ALT/SGPT) 21, Alkaline Phosphatase 81, Total Protein 6.4, Albumin 3.5 12/14/22 03:47: White Blood Count 16.1, Red Blood Count 3.86, Hemoglobin 11.2, Hematocrit 35, Mean Corpuscular Volume 89, Mean Corpuscular Hemoglobin 29, Mean Corpuscular Hemoglobin Concent 33, Red Cell Distribution Width 13.7, Platelet Count 364, Mean Platelet Volume 9.2, Immature Granulocyte % (Auto) 1, Neutrophils (%) (Auto) 89, Lymphocytes (%) (Auto) 4, Monocytes (%) (Auto) 5, Eosinophils (%) (Auto) 0, Basophils (%) (Auto) 0, Neutrophils # (Auto) 14.4, Lymphocytes # (Auto) 0.7, Monocytes # (Auto) 0.9, Eosinophils # (Auto) 0.1, Basophils # (Auto) 0.0, Immature Granulocyte # (Auto) 0.1, Sodium Level 135, Potassium Level 3.9, Chloride Level 96, Carbon Dioxide Level 29, Anion Gap 10, Blood Urea Nitrogen 25, Creatinine 0.87, Estimat Glomerular Filtration Rate 66, BUN/Creatinine Ratio 29, Glucose Level 114, Calcium Level 8.9, Corrected Calcium 9.3, Phosphorus Level 3.3, Magnesium Level 2.0, Total Bilirubin 0.8, Aspartate Amino Transf (AST/SGOT) 27, Alanine Aminotransferase (ALT/SGPT) 27, Alkaline Phosphatase 76, Total Protein 6.1, Albumin 3.5 12/15/22 03:39: White Blood Count 11.2, Red Blood Count 4.00, Hemoglobin 11.6, Hematocrit 36, Mean Corpuscular Volume 90, Mean Corpuscular Hemoglobin 29, Mean Corpuscular Hemoglobin Concent 32, Red Cell Distribution Width 13.7, Platelet Count 323, Mean Platelet Volume 9.3, Immature Granulocyte % (Auto) 1, Neutrophils (%) (Aut o) 91, Lymphocytes (%) (Auto) 4, Monocytes (%) (Auto) 4, Eosinophils (%) (Auto) 0, Basophils (%) (Auto) 0, Neutrophils # (Auto) 10.1, Lymphocytes # (Auto) 0.5, Monocytes # (Auto) 0.5, Eosinophils # (Auto) 0.0, Basophils # (Auto) 0.0, Immature Granulocyte # (Auto) 0.1, Sodium Level 136, Potassium Level 3.8, Chloride Level 96, Carbon Dioxide Level 29, Anion Gap 11, Blood Urea Nitrogen 27, Creatinine 0.89, Estimat Glomerular Filtration Rate 65, BUN/Creatinine Ratio 30, Glucose Level 117, Calcium Level 8.9, Corrected Calcium 9.2, Phosphorus Level 3.5, Magnesium Level 2.1, Total Bilirubin 0.9, Aspartate Amino Transf (AST/SGOT) 22, Alanine Aminotransferase (ALT/SGPT) 26, Alkaline Phosphatase 72, Total Protein 6.3, Albumin 3.6 12/16/22 03:00: White Blood Count 16.5, Red Blood Count 3.85, Hemoglobin 10.9, Hematocrit 35, Mean Corpuscular Volume 90, Mean Corpuscular Hemoglobin 28, Mean Corpuscular Hemoglobin Concent 32, Red Cell Distribution Width 13.8, Platelet Count 325, Mean Platelet Volume 8.9, Immature Granulocyte % (Auto) 1, Neutrophils (%) (Auto) 91, Lymphocytes (%) (Auto) 3, Monocytes (%) (Auto) 5, Eosinophils (%) ( Auto) 0, Basophils (%) (Auto) 0, Neutrophils # (Auto) 15.1, Lymphocytes # (Auto) 0.5, Monocytes # (Auto) 0.8, Eosinophils # (Auto) 0.0, Basophils # (Auto) 0.0, Immature Granulocyte # (Auto) 0.1, Sodium Level 137, Potassium Level 4.2, Chloride Level 94, Carbon Dioxide Level 34, Anion Gap 9, Blood Urea Nitrogen 36, Creatinine 0.78, Estimat Glomerular Filtration Rate 76, BUN/Creatinine Ratio 46, Glucose Level 110, Calcium Level 9.4, Corrected Calcium 10.0, Phosphorus Level 2.8, Magnesium Level 2.1, Total Bilirubin 0.8, Aspartate Amino Transf (AST/SGOT) 19, Alanine Aminotransferase (ALT/SGPT) 21, Alkaline Phosphatase 71, Total Protein 5.9, Albumin 3.3, Neutrophils % (Manual) 92, Lymphocytes % (Manual) 3, Monocytes % (Manual) 5, Hypochromasia SLIGHT 12/17/22 05:28: White Blood Count 14.4, Red Blood Count 3.61, Hemoglobin 10.4, Hematocrit 32, Mean Corpuscular Volume 90, Mean Corpuscular Hemoglobin 29, Mean Corpuscular Hemoglobin Concent 32, Red Cell Distribution Width 13.9, Platelet Count 292, Mean Platelet Volume 8.8, Immature Granulocyte % (Auto) 1, Neutrophils (%) (Auto) 78, Lymphocytes (%) (Auto) 12, Monocytes (%) (Auto) 8, Eosinophils (%) (Auto) 2, Basophils (%) (Auto) 0, Neutrophils # (Auto) 11.2, Lymphocytes # (Auto) 1.7, Monocytes # (Auto) 1.1, Eosinophils # (Auto) 0.3, Basophils # (Auto) 0.0, Immature Granulocyte # (Auto) 0.1, Sodium Level 138, Potassium Level 3.2, Chloride Level 93, Carbon Dioxide Level 35, Anion Gap 10, Blood Urea Nitrogen 30, Creatinine 0.83, Estimat Glomerular Filtration Rate 70, BUN/Creatinine Ratio 36, Glucose Level 95, Calcium Level 8.8, Corrected Calcium 9.4, Magnesium Level 2.0, Total Bilirubin 0.9, Aspartate Amino Transf (AST/SGOT) 17, Alanine Aminotransferase (ALT/SGPT) 18, Alkaline Phosphatase 66, Total Protein 5.6, Albumin 3.2 12/18/22 03:55: White Blood Count 13.0, Red Blood Count 3.51, Hemoglobin 10.1, Hematocrit 31, Mean Corpuscular Volume 89, Mean Corpuscular Hemoglobin 29, Mean Corpuscular Hemoglobin Concent 33, Red Cell Distribution Width 14.2, Platelet Count 305, Mean Platelet Volume 9.2, Immature Granulocyte % (Auto) 1, Neutrophils (%) (Auto) 83, Lymphocytes (%) (Auto) 8, Monocytes (%) (Auto) 8, Eosinophils (%) (Auto) 0, Basophils (%) (Auto) 0, Neutrophils # (Auto) 10.8, Lymphocytes # (Auto) 1.1, Monocytes # (Auto) 1.0, Eosinophils # (Auto) 0.0, Basophils # (Auto) 0.0, Immature Granulocyte # (Auto) 0.1, Sodium Level 137, Potassium Level 3.4, Chloride Level 92, Carbon Dioxide Level 35, Anion Gap 10, Blood Urea Nitrogen 39, Creatinine 0.88, Estimat Glomerular Filtration Rate 66, BUN/Creatinine Ratio 44, Glucose Level 103, Calcium Level 9.4, Corrected Calcium 10.0, Magnesium Level 2.0, Total Bilirubin 0.8, Aspartate Amino Transf (AST/SGOT) 21, Alanine Aminotransferase (ALT/SGPT) 19, Alkaline Phosphatase 67, Total Protein 5.9, Albumin 3.3 12/19/22 03:34: White Blood Count 12.3, Red Blood Count 3.43, Hemoglobin 9.9, Hematocrit 31, Mean Corpuscular Volume 90, Mean Corpuscular Hemoglobin 29, Mean Corpuscular Hemoglobin Concent 32, Red Cell Distribution Width 14.4, Platelet Count 292, Mean Platelet Volume 9.3, Immature Granulocyte % (Auto) 1, Neutrophils (%) (Auto) 79, Lymphocytes (%) (Auto) 13, Monocytes (%) (Auto) 7, Eosinophils (%) (Auto) 0, Basophils (%) (Auto) 0, Neutrophils # (Auto) 9.7, Lymphocytes # (Auto) 1.6, Monocytes # (Auto) 0.9, Eosinophils # (Auto) 0.0, Basophils # (Auto) 0.0, Immature Granulocyte # (Auto) 0.1, Sodium Level 138, Potassium Level 3.7, Chloride Level 95, Carbon Dioxide Level 32, Anion Gap 11, Blood Urea Nitrogen 33, Creatinine 0.85, Estimat Glomerular Filtration Rate 68, BUN/Creatinine Ratio 39, Glucose Level 91, Calcium Level 9.1, Corrected Calcium 9.6, Magnesium Level 2.1, Total Bilirubin 0.8, Aspartate Amino Transf (AST/SGOT) 25, Alanine Aminot ransferase (ALT/SGPT) 22, Alkaline Phosphatase 62, Total Protein 6.1, Albumin 3.4 12/20/22 06:08: White Blood Count 11.3, Red Blood Count 3.31, Hemoglobin 9.5, Hematocrit 30, Mean Corpuscular Volume 89, Mean Corpuscular Hemoglobin 29, Mean Corpuscular Hemoglobin Concent 32, Red Cell Distribution Width 14.5, Platelet Count 290, Mean Platelet Volume 9.0, Immature Granulocyte % (Auto) 1, Neutrophils (%) (Auto) 74, Lymphocytes (%) (Auto) 18, Monocytes (%) (Auto) 7, Eosinophils (%) (Auto) 1, Basophils (%) (Auto) 0, Neutrophils # (Auto) 8.4, Lymphocytes # (Auto) 2.0, Monocytes # (Auto) 0.8, Eosinophils # (Auto) 0.1, Basophils # (Auto) 0.0, Immature Granulocyte # (Auto) 0.1, Sodium Level 138, Potassium Level 3.5, Chloride Level 95, Carbon Dioxide Level 34, Anion Gap 9, Blood Urea Nitrogen 38, Creatinine 0.87, Estimat Glomerular Filtration Rate 66, BUN/Creatinine Ratio 44, Glucose Level 85, Calcium Level 8.6, Corrected Calcium 9.2, Magnesium Level 2.0, Total Bilirubin 0.7, Aspartate Amino Transf (AST/SGOT) 21, Alanine Aminotransferase (ALT/SGPT) 21, Alkaline Phosphatase 56, Total Protein 5.2, Albumin 3.2 12/21/22 05:20: White Blood Count 13.0, Red Blood Count 3.62, Hemoglobin 10.6, Hematocrit 32, Mean Corpuscular Volume 89, Mean Corpuscular Hemoglobin 29, Mean Corpuscular Hemoglobin Concent 33, Red Cell Distribution Width 14.5, Platelet Count 318, Mean Platelet Volume 9.4, Immature Granulocyte % (Auto) 1, Neutrophils (%) (Auto) 80, Lymphocytes (%) (Auto) 14, Monocytes (%) (Auto) 6, Eosinophils (%) (Auto) 0, Basophils (%) (Auto) 0, Neutrophils # (Auto) 10.3, Lymphocytes # (Auto) 1.8, Monocytes # (Auto) 0.7, Eosinophils # (Auto) 0.0, Basophils # (Auto) 0.0, Immature Granulocyte # (Auto) 0.1, Sodium Level 137, Potassium Level 3.8, Chloride Level 95, Carbon Dioxide Level 32, Anion Gap 10, Blood Urea Nitrogen 36, Creatinine 1.01, Estimat Glomerular Filtration Rate 56, BUN/Creatinine Ratio 36, Glucose Level 82, Calcium Level 8.7, Corrected Calcium 9.3, Magnesium Level 2.0, Total Bilirubin 0.7, Aspartate Amino Transf (AST/SGOT) 28, Alanine Aminotransferase (ALT/SGPT) 23, Alkaline Phosphatase 57, Total Protein 5.7, Albumin 3.3 Discharge Home Medications: Active Scripts Active Lasix (Furosemide) 40 Mg Tablet 40 Mg PO DAILY Prednisone 20 Mg Tab 20 Mg PO DAILY@0700 Klor-Con M20 (Potassium Chloride) 20 Meq Tab.er.prt 20 Meq PO DAILY@0900 Amiodarone HCl 200 Mg Tablet 400 Mg PO BID Iprat-Albut 0.5-3(2.5) mg/3 ml (Ipratropium/Albuterol Sulfate) 0.5 Mg-3 Mg (2.5 Mg Base)/3 Ml Ampul.neb 3 Ml INH RTBID Ventolin Hfa (Albuterol Sulfate) 1 Puff Puff 2 Puff INH Q4H PRN Miralax (Polyethylene Glycol 3350) 17 Gram Powd.pack 17 Gm PO DAILY Formoterol Fumarate 20 Mcg/2 Ml Vial.neb 20 Mcg IH Q12H Budesonide 0.5 Mg/2 Ml Ampul.neb 0.5 Mg IH Q12H Align (Bifidobacterium Infantis) 10.5 Mg (10 Million Cell) Tab.chew 10.5 Mg PO HS Xarelto Tablet (Rivaroxaban) 15 Mg Tablet 15 Mg PO 1800 Synthroid (Levothyroxine Sodium) 88 Mcg Tablet 88 Mcg PO ,,, Sertraline HCl 25 Mg Tablet 12.5 Mg PO HS Synthroid (Levothyroxine Sodium) 75 Mcg Tablet 75 Mcg PO MO,WE,FR Atorvastatin Calcium 20 Mg Tablet 20 Mg PO HS Vitamin D3 (Cholecalciferol (Vitamin D3)) 50 Mcg (2000 Unit) Capsule 50 Mcg PO DAILY Aspirin EC (Aspirin) 81 Mg Tablet.dr 81 Mg PO HS Vitamin B-12 (Cyanocobalamin (Vitamin B-12)) 500 Mcg Tablet 500 Mcg PO HS Tylenol (Acetaminophen) 325 Mg Tablet 325 Mg PO Q4H PRN Instructions to patient/family Please see electronic discharge instructions given to patient. Diagnosis/Problems Diagnosis/Problems (1) Chronic heart failure with preserved ejection fraction (HFpEF) (2) Respiratory distress Status: Acute (3) Pulmonary hypertension (4) Mitral regurgitation (5) Primary hypertension (6) Atrial fibrillation status post cardioversion (7) Paroxysmal atrial fibrillation ELVA BEAUCHAMP DO Dec 21, 2022 09:53
[2022-12-21 11:45] VITALS: BP 113/80
--- NOTE | 2022-12-21 11:49 | Progress Note ---
SANDEEP PEREZ 12/21/22 1149: Subjective Date Seen by a Provider: Dec 21, 2022 Time Seen by a Provider: 08:10 Subjective/Events-last exam Patient seen and examined at bedside this morning. Reports improved breathing still on 2L by nasal cannula. She denies any chest pain or palpitations. Reports she is ready to go to back to [facility] today. Urine output appropriate with catheter still in place. Will do home O2 eval due to new oxygen requirements. Hospital Course: Tanna Mendoza was admitted for CHF exacerbation, acute respiratory failure, Afib with RVR, COPD exacerbation HPI from admission "Tanna Mendoza is a 82yo F with past medical hx of COPD, CHF, HLD, hypothyroidism, afib, and carotid stenosis who presented to the ED on 12/10 after presenting to her primary care provider with a 1 week history of worsening shortness of breath. She was found to be in afib w RVR and showed bibasilar infiltrates on CXR. Her BNP was elevated to 652. She was placed on bipap overnight with improvement in her oxygenation. She was admitted to the ICU for management of her afib w RVR and volume overload. This morning she is off bipap now on nasal cannula and reports breathing better and feeling less short of breath. Her symptoms began about 1 week ago with shortness of breath requiring her to wear oxygen at all times when she usually wears it at night only. She also noticed some LE swelling that began a few days ago. She recalls being around a sick contact at her facility about 1 week ago. She never felt any fever or upper respiratory infection symptoms. She does not any palpitations or chest pain. She has gone into RVR in the past and does not notice when she does. No N/V/D or fever/chills." She was treated with diuretics and urine output was monitored closely with gradual decrease in her shortness of breath, improvement of CXR findings, and less O2 requirements. She was treated with duonebs, budesonide, and prednisone with improvement in breathing and cough. She was initially tachycardic. Cardiology switched her home flecainide to amiodarone which controlled rate. She was successfully cardioverted on 12/14 and remained in sinus rhythm with appropriate rate afterwards. Maintain oral anticoagulation. Echo revealed normal EF with atrial enlargement and pulmonary hypertension. She developed bibasilar infiltrates on cxr and was treated with a course of cefepime. Vitals and labs remained stable with no signs of sepsis and/or shock. She was moved out of the ICU and transferred to 4th floor on 12/16 with improvement of her condition. She began working with PT/OT on the floor to improve strength and function. She is being discharged on 12/21 to [facility] with close follow up with her PCP and cardiology. Will likely need around the clock O2 instead of just at night while she continues to recover. Review of Systems General: No Chills, No Night Sweats HEENT: No Head Aches, No Visual Changes Pulmonary: No Dyspnea, No Cough Cardiovascular: No: Chest Pain, Palpitations Gastrointestinal: No: Nausea, Vomiting, Abdominal Pain Genitourinary: No Dysuria, No Hematuria Neurological: Weakness; No: Change in speech, Confusion Objective Exam Last Set of Vital Signs Vital Signs Date Time Temp Pulse Resp B/P (MAP) Pulse Ox O2 Delivery O2 Flow Rate FiO2 12/21/22 07:45 High Flow N/C 2.50 12/21/22 07:28 36.9 65 20 156/75 (102) 98 12/16/22 09:12 32 Capillary Refill : Less Than 3 Seconds I&O Intake and Output 12/21/22 00:00 Intake Total 1240 ml Output Total 1225 ml Balance 15 ml Intake Oral 1240 ml Output Urine Total 1225 ml # Bowel Movements 1 General: Alert, Oriented X3, Cooperative HEENT: Atraumatic, EOMI Neck: Supple Lungs: Clear to Auscultation, Normal Air Movement Heart: Regular Rate, Normal S1, Normal S2 Abdomen: Soft, No Tenderness Extremities: No Cyanosis, No Edema Psych/Mental Status: Mental Status NL, Mood NL Results Lab Laboratory Tests 12/21/22 05:20: White Blood Count 13.0H, Red Blood Count 3.62L, Hemoglobin 10.6L, Hematocrit 32L , Mean Corpuscular Volume 89, Mean Corpuscular Hemoglobin 29, Mean Corpuscular Hemoglobin Concent 33, Red Cell Distribution Width 14.5, Platelet Count 318, Mean Platelet Volume 9.4, Immature Granulocyte % (Auto) 1, Neutrophils (%) (Auto) 80H, Lymphocytes (%) (Auto) 14, Monocytes (%) (Auto) 6, Eosinophils (%) (Auto) 0, Basophils (%) (Auto) 0, Neutrophils # (Auto) 10.3H, Lymphocytes # (Auto) 1.8, Monocytes # (Auto) 0.7, Eosinophils # (Auto) 0.0, Basophils # (Auto) 0.0, Immature Granulocyte # (Auto) 0.1, Sodium Level 137, Potassium Level 3.8, Chloride Level 95L, Carbon Dioxide Level 32, Anion Gap 10, Blood Urea Nitrogen 36H, Creatinine 1.01, Estimat Glomerular Filtration Rate 56, BUN/Creatinine Ratio 36, Glucose Level 82, Calcium Level 8.7, Corrected Calcium 9.3, Magnesium Level 2.0, Total Bilirubin 0.7, Aspartate Amino Transf (AST/SGOT) 28, Alanine Aminotransferase (ALT/SGPT) 23, Alkaline Phosphatase 57, Total Protein 5.7L, Albumin 3.3 Microbiology 12/10/22 MRSA Screen - Final, Complete MRSA not isolated 12/10/22 Blood Culture - Final, Complete No growth Assessment/Plan Assessment/Plan Assess & Plan/Chief Complaint Acute exacerbation of CHF with myopathy Acute hypoxic hypercapneic respiratory failure requiring bipap Lower extremity edema COPD exacerbation Weaned off bipap now on nasal cannula, continue oxygen supplementation 40mg IV lasix daily, monitor urine output fluid restriction monitor kidney function and urine output, normal BUN and creatinine as of now Continue duonebs and budesonide prednisone 40mg daily Afib with RVR S/P cardioversion Cardiology consulted appreciate recs Was on cardizem drip switched to amiodarone has been on flecanaide in the past, failed continue telemetry monitoring Successful cardioversion on 12/14 remains in SR Rate improved Oral anticoagulation wth xarelto 15mg daily HAP bibasilar infiltrates present on CXR finished cefepime Normal WBC count Lactic acid normal at 1.05 Hypothyroidism Anxiety xanax prn HTN blood pressure at acceptable range now, continue to monitor Diet- regular DVT ppx- anticoagulated w xarelto Code status- full Clinical Quality Measures Admission Status Admission Dx Acute exacerbation of CHF Acute respiratory distress requiring bipap Lower extremity edema COPD exacerbation Weaned off bipap now on nasal cannula, continue oxygen supplementation 40mg IV lasix daily, monitor urine output fluid restriction monitor kidney function and urine output, normal BUN and creatinine as of now Continue duonebs and decadron Afib with RVR Cardiology consulted appreciate recs Tele ICU consulted and appreciate recs Was on cardizem drip switched to amiodarone has been on flecanaide in the past, failed continue telemetry monitoring Rate improved Echo today Oral anticoagulation wth xarelto 15mg daily Possible CAP bibasilar infiltrates present on CXR Cefepime 1gm and Vanc 1gm Normal WBC count Lactic acid normal at 1.05 Hypothyroidism HTN blood pressure at acceptable range now, continue to monitor Diet- regular DVT ppx- anticoagulated w xarelto Code status- full MELINA BEAUCHAMP DO 12/21/222035: Supervisory-Addendum Brief Verification & Attestation Participated in pt care: history, MDM, physical Personally performed: exam, history, MDM, supervision of care Care discussed with: Medical Student Procedures: n/a Results interpretation: Verified all documentation Verification and Attestation of Medical Student E/M Service A medical student performed and documented this service in my presence. I reviewed and verified all information documented by the medical student and made modifications to such information, when appropriate. I personally performed the physical exam and medical decision making. Melina Beauchamp Dec 21, 2022,20:36 SANDEEP PEREZ Dec 21, 2022 11:49 MELINA BEAUCHAMP DO Dec 21, 2022 20:36
[2022-12-21 14:00] VITALS: BP 113/80
[2022-12-22] MEDS ORDERED: predniSONE 20 MG TAB PO SCH (07:00)
== END 2022-12-21 14:58 | DRG 291 ==
LOC: EDUNIT# 15:26 → ER 15:27 → ICU 17:24 → 4TH 12-16 15:35
PROVIDERS: ADMIT Internal Medicine; ATTEND Internal Medicine
PROC: 5A0955A Assistance with Respiratory Ventilation, Greater than 96 Consecutive Hours, High Flow/Velocity Cannula (ICD-10-PCS; 2022-12-10)
PROC: 5A2204Z Restoration of Cardiac Rhythm, Single (ICD-10-PCS; principal; 2022-12-14)
DX: I50.33 Acute on chronic diastolic (congestive) heart failure (principal); J18.9 Pneumonia, unspecified organism; J96.01 Acute respiratory failure with hypoxia; J96.02 Acute respiratory failure with hypercapnia; J44.1 Chronic obstructive pulmonary disease with (acute) exacerbation; J44.0 Chronic obstructive pulmonary disease with (acute) lower respiratory infection; E87.1 Hypo-osmolality and hyponatremia; I48.92 Unspecified atrial flutter; Z20.822 Contact with and (suspected) exposure to COVID-19; M41.9 Scoliosis, unspecified; E03.9 Hypothyroidism, unspecified; F41.9 Anxiety disorder, unspecified; G72.9 Myopathy, unspecified; Z79.82 Long term (current) use of aspirin; Z79.899 Other long term (current) drug therapy; Z99.81 Dependence on supplemental oxygen; Z79.01 Long term (current) use of anticoagulants; Z87.891 Personal history of nicotine dependence; I48.0 Paroxysmal atrial fibrillation; I27.20 Pulmonary hypertension, unspecified; M54.32 Sciatica, left side; D64.9 Anemia, unspecified; I34.0 Nonrheumatic mitral (valve) insufficiency; I49.5 Sick sinus syndrome
CPT/HCPCS: 36410; 36415; 36600; 71045; 76937; 80053; 82805; 83605; 83735; 83880; 84100; 84484; 85007; 85025; 85027; 87040; 87081; 87636; 93005; 93306; 94640; 94660; 94664; 94760; 94761; 96365; 96375

== ENCOUNTER 2023-01-29 11:47 | Inpatient (IN) | payer MEDICARE ==
[2023-01-29] VITALS (10 sets, daily range): BP systolic 132–163; BP diastolic 55–76
[~2023-01-29] VITALS: Ht 160 cm; Wt 61.4 kg
[~2023-01-29 11:47] MED LIST changes: +BUDE0.5A IH; +FLUO60GE TOP; +FORM20VI3 IH; +FURO-124 PO; +POLY17PO6 PO; +RT-ALBUINH INH
[2023-01-29 12:09] LABS: BASOPHILS % (AUTO) 0 % (0-10); EOSINOPHILS # (AUTO) 0.1 10^3/uL (0.0-0.3); EOSINOPHILS % (AUTO) 1 % (0-10); HEMATOCRIT 23 % (35-52); HEMOGLOBIN 7.6 g/dL (11.5-16.0); LYMPHOCYTES # (AUTO) 1.1 10^3/uL (1.0-4.0); LYMPHOCYTES % (AUTO) 8 % (12-44); MEAN CORPUSCULAR HEMOGLOBIN 29 pg (25-34); MEAN CORPUSCULAR HGB CONC 33 g/dL (32-36); MEAN CORPUSCULAR VOLUME 89 fL (80-99); MEAN PLATELET VOLUME 8.7 fL (9.0-12.2); MONOCYTES # (AUTO) 0.6 10^3/uL (0.0-1.0); MONOCYTES % (AUTO) 4 % (0-12); NEUTROPHILS # (AUTO) 12.3 10^3/uL (1.8-7.8); NEUTROPHILS % (AUTO) 86 % (42-75); PLATELET COUNT 421 10^3/uL (130-400); WHITE BLOOD COUNT 14.3 10^3/uL (4.3-11.0)
--- NOTE | 2023-01-29 12:11 | ED General ---
General Chief Complaint: General Problems/Pain Stated Complaint: ALTERED MENTAL STATUS Source of Information: Patient, Halfway Records, Old Records History of Present Illness Date Seen by Provider: Jan 29, 2023 Time Seen by Provider: 11:50 Initial Comments PT ARRIVES VIA EMS FROM VIA [facility] PT TESTED + FOR COVID 10 DAYS AGO SHE HAS BEEN ON O2 CONTINUOUSLY SINCE THEN. PT STATES SHE WAS NOT ON OXYGEN BEFORE THAT. ( RESIDENTIAL RECORDS LIST O2 AT 3L/NC SINCE SHE WAS ADMITTED THERE 12/21/22 ) SHE TESTED NEGATIVE FOR COVID TODAY TODAY, SHE GOT UP TO GO TO THE BATHROOM AND SHE GOT WEAK AND DIZZY AND PASSED OUT--NO INJURY PER PT. IT IS NOT KNOWN IF THE EVENT WAS WITNESSED. SYSTOLIC BP WAS IN THE 80'S AT THE TIME PT HAS NO COMPLAINTS AT THIS TIME. PER RESIDENTIAL RECORDS, PT HAS CHRONIC GENERALIZED WEAKNESS, DIFFICULTY WALKING, FALLS, NEEDS ASSISTANCE WITH ADL'S SHE ALSO HAS COPD, CHF, HTN, A FIB SHE IS ON XARELTO AND ASPIRIN PT HAS HAD MULTIPLE RECENT VISITS/ADMITS AND WAS ADMITTED TO VIA [facility] LAST MONTH PCP; DR. GROSSMAN Allergies and Home Medications Allergies Coded Allergies: codeine (Unverified Allergy, Mild, Vomiting, 02/18/22) adhesive tape (Unverified Allergy, Unknown, 02/18/22) amoxicillin (Unverified Allergy, Unknown, 02/18/22) Patient Home Medication List Home Medication List Reviewed: Yes Acetaminophen (Tylenol) 325 Mg Tablet, 325 MG PO Q4H PRN for PAIN-MILD (1-4) Prescribed by: ELVA BEAUCHAMP on 12/21/22948 Albuterol Sulfate (Ventolin Hfa) 1 Puff Puff, 2 PUFF INH Q4H PRN for SHORTNESS OF BREATH Prescribed by: ELVA BEAUCHAMP on 12/21/22948 Amiodarone HCl (Amiodarone HCl) 200 Mg Tablet, 400 MG PO BID Prescribed by: ELVA BEAUCHAMP on 12/21/22948 Aspirin (Aspirin EC) 81 Mg Tablet.dr 81 MG PO HS Prescribed by: ELVA BEAUCHAMP on 12/21/22948 Atorvastatin Calcium (Atorvastatin Calcium) 20 Mg Tablet, 20 MG PO HS Prescribed by: ELVA BEAUCHAMP on 12/21/22948 Bifidobacterium Infantis (Align) 10.5 Mg (10 Million Cell) Tab.chew, 10.5 MG PO HS Prescribed by: ELVA BEAUCHAMP on 12/21/22948 Budesonide (Budesonide) 0.5 Mg/2 Ml Ampul.neb, 0.5 MG IH Q12H Prescribed by: ELVA BEAUCHAMP on 12/21/22948 Cholecalciferol (Vitamin D3) (Vitamin D3) 50 Mcg (2000 Unit) Capsule, 50 MCG PO DAILY Prescribed by: ELVA BEAUCHAMP on 12/21/22948 Cyanocobalamin (Vitamin B-12) (Vitamin B-12) 500 Mcg Tablet, 500 MCG PO HS Prescribed by: ELVA BEAUCHAMP on 12/21/22948 Formoterol Fumarate (Formoterol Fumarate) 20 Mcg/2 Ml Vial.neb, 20 MCG IH Q12H Prescribed by: ELVA BEAUCHAMP on 12/21/22948 Furosemide (Lasix) 40 Mg Tablet, 40 MG PO DAILY Prescribed by: ELVA BEAUCHAMP on 12/21/22951 Ipratropium/Albuterol Sulfate (Iprat-Albut 0.5-3(2.5) mg/3 ml) 0.5 Mg-3 Mg (2.5 Mg Base)/3 Ml Ampul.neb, 3 ML INH RTBID Prescribed by: ELVA BEAUCHAMP on 12/21/22948 Levothyroxine Sodium (Synthroid) 75 Mcg Tablet, 75 MCG PO MO,WE,FR Prescribed by: ELVA BEAUCHAMP on 12/21/22948 Levothyroxine Sodium (Synthroid) 88 Mcg Tablet, 88 MCG PO ,,,SA Prescribed by: ELVA BEAUCHAMP on 12/21/22948 Polyethylene Glycol 3350 (Miralax) 17 Gram Powd.pack, 17 GM PO DAILY Prescribed by: ELVA BEAUCHAMP on 12/21/22948 Potassium Chloride (Klor-Con M20) 20 Meq Tab.er.prt, 20 MEQ PO DAILY@0900 Prescribed by: ELVA BEAUCHAMP on 12/21/22948 Prednisone (Prednisone) 20 Mg Tab, 20 MG PO DAILY@0700 Prescribed by: ELVA BEAUCHAMP on 12/21/22948 Rivaroxaban (Xarelto Tablet) 15 Mg Tablet, 15 MG PO 1800 Prescribed by: ELVA BEAUCHAMP on 12/21/22948 Sertraline HCl (Sertraline HCl) 25 Mg Tablet, 12.5 MG PO HS Prescribed by: ELVA BEAUCHAMP on 12/21/22948 Review of Systems Review of Systems Constitutional: see HPI, dizziness, weakness Respiratory: see HPI Cardiovascular: see HPI; No chest pain; syncope Gastrointestinal: no symptoms reported Genitourinary: no symptoms reported Musculoskeletal: no symptoms reported Skin: no symptoms reported Psychiatric/Neurological: See HPI Hematologic/Lymphatic: No Symptoms Reported Immunological/Allergic: no symptoms reported Past Prhwisn-Wkfafd-Okquqi Hx Patient Social History Tobacco Use?: No Substance use?: No Alcohol Use?: No Immunizations Up To Date Tetanus Booster (TDap): Unknown First/Initial COVID19 Vaccinat: 07/04/20 Second COVID19 Vaccination Neo: 07/25/20 Third COVID19 Vaccination Date: 04/04/21 Seasonal Allergies Seasonal Allergies: No Past Medical History Surgery/Hospitalization HX: Rt CAROTID, placement LOOP RECORDER, A FIB Conversion x2 Surgeries: Yes (BASAL CELL CA REMOVED, SX FOR ENDOMETRIOSIS) Cardiac, Vascular Surgery Respiratory: Yes Pneumonia, COPD Currently Using CPAP: No Currently Using BIPAP: No Cardiac: Yes (LBBB) Atrial Fibrillation, Chronic Edema/Swelling, High Cholesterol, Hypertension Neurological: No Reproductive Disorders: No Genitourinary: Yes Kidney Infection, Bladder Infection Gastrointestinal: No Musculoskeletal: Yes (FALLS, GEN WEAKNESS, DIFFICULTY WALKIKNG. ) Endocrine: Yes Hypothyroidsim HEENT: Yes (CATARACTS REMOVED) Cataract Hearing Impairment: Hard of Hearing Cancer: Yes Skin Did You Recieve Any Treatments: Yes What Type of Treatment Did You: Surgical Intervention Psychosocial: Yes Sleep Difficulties, Anxiety Integumentary: No Blood Disorders: No Adverse Reaction/Blood Tranf: No Family Medical History Asthma Colon cancer Deafness or hearing loss Diabetes mellitus Hypertension Neoplasm Thyroid disease Asthma, Cancer, Diabetes, Hypertension Physical Exam Vital Signs Vital Signs - First Documented 01/29/23 01/29/23 11:47 14:00 Temp 36.4 Pulse 63 Resp 20 B/P (MAP) 102/48 (66) Pulse Ox 98 O2 Delivery Room Air Capillary Refill : Height, Weight, BMI Height: 5'3.50" Weight: 157lbs. 0.9oz. [id number]; 22.61 BMI Method: General Appearance: No Apparent Distress, WD/WN HEENT: PERRL/EOMI, Pale Conjunctivae (L), Pale Conjunctivae (R) Neck: Normal Inspection Respiratory: Normal Breath Sounds, No Accessory Muscle Use, No Respiratory Distress Cardiovascular: Regular Rate, Rhythm, No Murmur Gastrointestinal: Non Tender, Soft Back: No CVA Tenderness Extremity: Normal Capillary Refill, Normal Inspection, No Pedal Edema Neurologic/Psychiatric: Alert, Oriented x3, No Motor/Sensory Deficits, Normal Mood/Affect, titrator II-XII Norm as Tested Skin: Normal Color, Warm/Dry; No Ecchymosis, No [place] Progress/Results/Core Measures Suspected Sepsis SIRS Temperature: Pulse: Respiratory Rate: Laboratory Tests 01/29/23 11:50: White Blood Count 14.3H Blood Pressure / Mean: Laboratory Tests 01/29/23 11:50: Creatinine 1.44H, INR Comment 2.0H, Platelet Count 421H, Total Bilirubin 0.6 Results/Orders Lab Results Laboratory Tests Test 01/29/23 11:50 01/29/23 12:17 Range/Units White Blood Count 14.3 H 4.3-11.0 10^3/uL Red Blood Count 2.64 L 3.80-5.11 10^6/uL Hemoglobin 7.6 L 11.5-16.0 g/dL Hematocrit 23 L 35-52 % Mean Corpuscular Volume 89 80-99 fL Mean Corpuscular Hemoglobin 29 25-34 pg Mean Corpuscular Hemoglobin Concent 33 32-36 g/dL Red Cell Distribution Width 17.2 H 10.0-14.5 % Platelet Count 421 H 130-400 10^3/uL Mean Platelet Volume 8.7 L 9.0-12.2 fL Immature Granulocyte % (Auto) 1 % Neutrophils (%) (Auto) 86 H 42-75 % Lymphocytes (%) (Auto) 8 L 12-44 % Monocytes (%) (Auto) 4 0-12 % Eosinophils (%) (Auto) 1 0-10 % Basophils (%) (Auto) 0 0-10 % Neutrophils # (Auto) 12.3 H 1.8-7.8 10^3/uL Lymphocytes # (Auto) 1.1 1.0-4.0 10^3/uL Monocytes # (Auto) 0.6 0.0-1.0 10^3/uL Eosinophils # (Auto) 0.1 0.0-0.3 10^3/uL Basophils # (Auto) 0.0 0.0-0.1 10^3/uL Immature Granulocyte # (Auto) 0.2 H 0.0-0.1 10^3/uL Neutrophils % (Manual) 91 % Lymphocytes % (Manual) 3 % Monocytes % (Manual) 4 % Eosinophils % (Manual) 1 % Myelocytes % 1 % Clumped Platelets OCCASIONAL Anisocytosis SLIGHT Joe Cells MODERATE Acanthocytes MODERATE Schistocytes SLIGHT Erythrocyte Sedimentation Rate 63 H 0-30 MM/HR Prothrombin Time 23.0 H 12.2-14.7 SEC INR Comment 2.0 H 0.8-1.4 Activated Partial Thromboplast Time 35 24-35 SEC D-Dimer 0.34 0.00-0.49 UG/ML Sodium Level 140 135-145 MMOL/L Potassium Level 3.2 L 3.6-5.0 MMOL/L Chloride Level 100 98-107 MMOL/L Carbon Dioxide Level 33 H 21-32 MMOL/L Anion Gap 7 5-14 MMOL/L Blood Urea Nitrogen 33 H 7-18 MG/DL Creatinine 1.44 H 0.60-1.30 MG/DL Estimat Glomerular Filtration Rate 36 BUN/Creatinine Ratio 23 Glucose Level 115 H 70-105 MG/DL Calcium Level 8.4 L 8.5-10.1 MG/DL Corrected Calcium 9.1 8.5-10.1 MG/DL Magnesium Level 2.0 1.6-2.4 MG/DL Total Bilirubin 0.6 0.1-1.0 MG/DL Aspartate Amino Transf (AST/SGOT) 20 5-34 U/L Alanine Aminotransferase (ALT/SGPT) 35 0-55 U/L Alkaline Phosphatase 59 40-136 U/L Total Creatine Kinase 28 L 29-168 U/L Creatine Kinase MB 2.9 <6.6 NG/ML Myoglobin 56.3 10.0-92.0 NG/ML Troponin I 0.031 H <0.028 NG/ML C-Reactive Protein High Sensitivity 4.93 H 0.00-0.50 MG/DL B-Type Natriuretic Peptide 150.4 H <100.0 PG/ML Total Protein 5.8 L 6.4-8.2 GM/DL Albumin 3.1 L 3.2-4.5 GM/DL Urine Color YELLOW Urine Clarity CLEAR Urine pH 5.5 5-9 Urine Specific [place] 1.020 1.016-1.022 Urine Protein 1+ H NEGATIVE Urine Glucose (UA) NEGATIVE NEGATIVE Urine Ketones NEGATIVE NEGATIVE Urine Nitrite NEGATIVE NEGATIVE Urine Bilirubin 1+ H NEGATIVE Urine Urobilinogen 1.0 < = 1.0 MG/DL Urine Leukocyte Esterase NEGATIVE NEGATIVE Urine RBC (Auto) NEGATIVE NEGATIVE Urine RBC RARE /HPF Urine WBC 0-2 /HPF Urine Squamous Epithelial Cells 5-10 /HPF Urine Crystals PRESENT H /LPF Urine Amorphous Sediment MOD ESTEFANI URATES H /LPF Urine Bacteria NEGATIVE /HPF Urine Casts PRESENT /LPF Urine Hyaline Casts 10-25 H /LPF Urine Mucus NEGATIVE /LPF Urine Culture Indicated NO My Orders Orders - HODA WAGNER DO Ed Iv/Invasive Line Start (01/29/23 12:01) Ekg Tracing (01/29/23 12:01) O2 (01/29/23 12:01) Monitor-Rhythm Ecg Trace Only (01/29/23 12:01) Straight Cath For Spec.-Adult (01/29/23 12:01) Chest 1 View, Ap/Pa Only (01/29/23 12:01) Bnp Ellis (01/29/23 12:01) Cbc With Automated Diff (01/29/23 12:01) Comprehensive Metabolic Panel (01/29/23 12:01) Creatine Kinase (01/29/23 12:01) Creatine Kinase Mb (01/29/23 12:01) Hs C Reactive Protein (01/29/23 12:01) Fibrin Degradation Products (01/29/23 12:01) Magnesium (01/29/23 12:01) Protime With Inr (01/29/23 12:01) Partial Thromboplastin Time (01/29/23 12:01) Ua Culture If Indicated (01/29/23 12:01) Erythrocyte Sedimentation Rate (01/29/23 12:01) Myoglobin Serum (01/29/23 12:01) Troponin I [place] (01/29/23 12:01) Ct Head Wo-R/O Stroke (01/29/23 12:15) Manual Differential (01/29/23 11:50) Red Cells Leukocytes Reduced (01/29/23 12:29) Type And Screen (01/29/23 12:29) Ed Admission (Communication) (01/29/23 13:11) Ed Iv/Invasive Line Start (01/29/23 13:18) Lactated Ringers 1,000 Ml (Lactated Ring (01/29/23 13:30) Ns Iv 1000 Ml (Ns Iv 1000 Ml) (01/29/23 13:30) Medications Given in ED Current Medications Medications Dose Ordered Sig/Elida Route Start Time Stop Time Status Last Admin Dose Admin Lactated Ringer's 1,000 ml @ 0 mls/hr Q0M ONCE IV 01/29/23 13:30 01/29/23 13:31 DC 01/29/23 13:41 999 MLS/HR Vital Signs/I&O 01/29/23 01/29/23 11:47 14:00 Temp 36.4 Pulse 63 65 Resp 20 20 B/P (MAP) 102/48 (66) 142/63 Pulse Ox 98 O2 Delivery Room Air Room Air Capillary Refill : Progress Note : Progress Note VITALS ON ARRIVAL: TEMP 36.4=97.6, HR63, RR 20, BP 102/48 BP DID DROP INTO THE 80'S/40'S, UP TO 120'S SYSTOLIC AT TIME OF ADMIT PT HAD NO SYMPTOMS DURING ER STAY LABS: -CBC WITH WBC 14.3, HGB 7.6, PLT 421,000 -CMP WITH NA 140, K 3.2, CO2 33, ANION GAP 7, BUN 33, CR 1.44, GLU 115, CA 8.4. LFT'S NORMAL. ALB 3.1 -TROPONIN 0.031, BNP 150.4 -PT/PTT/INR 23/35/2.0 -D-DIMER 0.34 -SED RATE 63, CRP 4.93 -UA 1+BILI, 1+ PROTEIN CT HEAD-NO ACUTE PROCESS CXR--NO ACUTE PROCESS PT IS DNR REVIEWED RESIDENTIAL PAPERWORK, PRIOR MEDICAL RECORDS INCLUDING ER VISITS, ADMITS/H&P'S/CONSULTS/DISCHARGE SUMMARIES, TESTS/PROCEDURES ECG Initial ECG Impression Date: Jan 29, 2023 Initial ECG Impression Time: 12:11 Initial ECG Rate: 59 Initial ECG Rhythm: Normal Sinus (LBBB) Initial ECG Intervals OK 94 QRS 169 QT/QTC 513/513 Initial ECG Comparisson: Unchanged Comment INTERPRETED BY ME Diagnostic Imaging Comments CT HEAD--PER RADIOLOGIST VIA PHONE AT 1300 Comparison: Head CT without contrast dated 11/09/2022. Findings: There is no evidence of acute cerebral infarct, intracranial hemorrhage, or gross mass effect. There is no dense vessel sign seen. Stable diffuse brain parenchymal volume loss. There is no significant change to the diffuse patchy and confluent areas of low-attenuation white matter changes involving both cerebral hemispheres. There is normal cope-white matter distinction. There is no significant midline shift or herniation. There is no evidence of hydrocephalus. The basal cisterns are unremarkable. The skull, extracranial soft tissue, and orbits are unremarkable. The paranasal sinuses are unremarkable. Temporal bones show no significant abnormality. Impression: Stable CT scan of the brain with no interval evidence of acute intracranial process. There is no dense vessel sign. CXR--PER RADIOLOGIST REPORT AT 1315 FINDINGS: A loop recorder projects over the heart. Heart size is normal. Lungs are hyperinflated. Previously seen opacities resolved. No edema or pneumonia. IMPRESSION: 1. Hyperinflated but clear lungs. Reviewed: Reviewed by Me, Discussed w/Radiologist Departure Communication (Admissions) 1308--SPOKE WITH DR. BEAUCHAMP, HOSPITALIST FOR DR. GROSSMAN'S PATIENTS. ACCEPTS PT FOR ADMIT. SHE WILL DO ADMIT ORDERS. SHE WILL SPEAK WITH DR. DICKSON. WOULD LIKE DR. CARLSON CONSULTED 1322--SPOKE WITH DR. CARLSON, NURSING STAFFING COORDINATOR AND INFORMED OF CONSULT. HE ADVISES TO HOLD XARELTO Impression Primary Impression: SYNCOPE Additional Impressions: Anemia RECENT COVID 19 INFECTION ANTICOAGULATION THRAPY Paroxysmal atrial fibrillation Disposition: ADMITTED INPATIENT Condition: Stable Admissions Decision to Admit Reason: Admit from ER (General) Decision to Admit/Date: Jan 29, 2023 Time/Decision to Admit Time: 13:10 Departure-Patient Inst. Referrals: GENA GROSSMAN DO (PCP/Family) Primary Care Physician HODA WAGNER DO Jan 29, 2023 12:11
[2023-01-29 12:18] LABS: FIBRIN DEGRADATION PRODUCTS 0.34 UG/ML (0.00-0.49)
[2023-01-29 12:26] LABS: EOSINOPHILS % (MANUAL) 1 %; LYMPHOCYTES % (MANUAL) 3 %; MONOCYTES % (MANUAL) 4 %; MYELOCYTES % 1 %; NEUTROPHILS % (MANUAL) 91 %
[2023-01-29 12:27] LABS: ACANTHOCYTES MODERATE; ANISOCYTOSIS SLIGHT; BURR CELLS MODERATE; PLATELET CLUMPS OCCASIONAL; SCHISTOCYTES SLIGHT
[2023-01-29 12:28] LABS: ERYTHROCYTE SEDIMENTATION RATE 63 MM/HR (0-30)
[2023-01-29 12:29] LABS: ALBUMIN 3.1 GM/DL (3.2-4.5); BILIRUBIN,TOTAL 0.6 MG/DL (0.1-1.0); CALCIUM 8.4 MG/DL (8.5-10.1); CREATININE SERUM 1.44 MG/DL (0.60-1.30); POTASSIUM 3.2 MMOL/L (3.6-5.0); TOTAL PROTEIN 5.8 GM/DL (6.4-8.2)
[2023-01-29 12:39] LABS: CREATINE KINASE MB 2.9 NG/ML (<6.6)
--- NOTE | 2023-01-29 12:47 | Diagnostic Imaging Report ---
EXAMINATION: Chest 1 view HISTORY: Short of breath, prior Covid-19. COMPARISON: 12/16/2022 FINDINGS: A loop recorder projects over the heart. Heart size is normal. Lungs are hyperinflated. Previously seen opacities resolved. No edema or pneumonia. IMPRESSION: 1. Hyperinflated but clear lungs. Dictated by: Dictated on workstation # [id number]
[2023-01-29 12:54] LABS: BILIRUBIN,URINE 1+ (NEGATIVE); CLARITY,URINE CLEAR; COLOR,URINE YELLOW; GLUCOSE, URINE (UA) NEGATIVE (NEGATIVE); KETONES,URINE NEGATIVE (NEGATIVE); LEUKOCYTE ESTERASE ,URINE NEGATIVE (NEGATIVE); NITRITE,URINE NEGATIVE (NEGATIVE); PH,URINE 5.5 (5-9); PROTEIN,URINE 1+ (NEGATIVE); RBC,URINE RARE /HPF; WBC,URINE 0-2 /HPF
[2023-01-29 12:55] LABS: AMORPHOUS SEDIMENT,UR MOD AMOR URATES /LPF; BACTERIA,URINE NEGATIVE /HPF
--- NOTE | 2023-01-29 13:08 | Diagnostic Imaging Report ---
Clinical indication: Patient with neuro deficit. Syncopal episode on Xeralta. concern for head injury. Exam: Axial CT scan of the brain without IV contrast with coronal and sagittal reformatted images. Auto Exposure Controls were utilized during the CT exam to meet ALARA standards for radiation dose reduction. Comparison: Head CT without contrast dated 11/09/2022. Findings: There is no evidence of acute cerebral infarct, intracranial hemorrhage, or gross mass effect. There is no dense vessel sign seen. Stable diffuse brain parenchymal volume loss. There is no significant change to the diffuse patchy and confluent areas of low-attenuation white matter changes involving both cerebral hemispheres. There is normal cope-white matter distinction. There is no significant midline shift or herniation. There is no evidence of hydrocephalus. The basal cisterns are unremarkable. The skull, extracranial soft tissue, and orbits are unremarkable. The paranasal sinuses are unremarkable. Temporal bones show no significant abnormality. Impression: Stable CT scan of the brain with no interval evidence of acute intracranial process. There is no dense vessel sign. Results of this report discussed with Dr. Marixa Herrera via the telephone on 01/28/2023 at 1300 hours Dictated by: Dictated on workstation # [id number]
--- NOTE | 2023-01-29 13:17 | History & Physical ---
History of Present Illness HPI/Chief Complaint Chief complaint: Hypovolemic shock HPI: This is an 83-year-old female usp patient of Dr. Poole known to me from prior hospital stays which include A-fib with RVR and respiratory failure with pneumonia and congestive heart failure who presented due to dizziness and weakness and near syncope found to have hemoglobin of 7.4 consistent with acute blood loss. NSTEMI was diagnosed cardiology consulted and I did confer with general surgery who will be monitoring for need of EGD and colonoscopy. We will hold anticoagulation and aspirin. Source: patient, RN/MD, old records Exam Limitations: no limitations Date Seen 01/29/23 Time Seen by a Provider: 13:00 Attending Physician Cony Poole DO PCP Admitting Physician: Attending Physician: Referring Physician Date of Admission Home Medications & Allergies Home Medications Reviewed patient Home Medication Reconciliation performed by pharmacy medication reconciliations accessibility lift technician and/or nursing. Patients Allergies have been reviewed. Allergies Allergies Coded Allergies codeine (Unverified Allergy, Mild, Vomiting, 02/18/22) adhesive tape (Unverified Allergy, Unknown, 02/18/22) amoxicillin (Unverified Allergy, Unknown, 02/18/22) Past Dwgrjdb-Vnedsi-Tyjjgy Hx Past Med/Social Hx: Reviewed Nursing Past Med/Soc Hx, Reviewed and Corrections made Patient Social History Marrital Status: Employed/Student: retired Alcohol Use: Denies Use Smoking Status: Never a Smoker Former Smoker, Quit: Nov 26, 1984 Recent Hopitalizations: No Immunizations Up To Date Tetanus Booster (TDap): Unknown Date of Pneumonia Vaccine: Jan 13, 2016 Date of Influenza Vaccine: May 28, 2021 Seasonal Allergies Seasonal Allergies: No Past Medical History Surgeries: Cardiac, Vascular Surgery Respiratory: COPD, Pneumonia Currently Using CPAP: No Currently Using BIPAP: No Cardiac: Atrial Fibrillation, Chronic Edema/Swelling, High Cholesterol, Hypertension Reproductive: No Genitourinary: Kidney Infection, Bladder Infection Endocrine: Hypothyroidsim HEENT: Cataract Hearing Impairment: Hard of Hearing Cancer: Skin Did You Recieve Any Treatments: Yes What Type of Treatment Did You: Surgical Intervention Psychosocial: Sleep Difficulties, Anxiety History of Blood Disorders: No Adverse Reaction to Blood Drake: No Family History Asthma Colon cancer Deafness or hearing loss Diabetes mellitus Hypertension Neoplasm Thyroid disease Asthma, Cancer, Diabetes, Hypertension Review of Systems Constitutional: see HPI, dizziness, malaise, weakness Respiratory: dyspnea on exertion Cardiovascular: palpitations Physical Exam Physical Exam Vital Signs Vital Signs - First Documented 01/29/23 01/29/23 01/29/23 01/29/23 11:47 14:00 15:57 16:00 Temp 36.4 Pulse 63 Resp 20 B/P (MAP) 102/48 (66) Pulse Ox 98 O2 Delivery Room Air O2 Flow Rate 2.00 FiO2 21 Capillary Refill : Less Than 3 Seconds Height, Weight, BMI Height: 5'3.50" Weight: 157lbs. 0.9oz. 71.896673ni; 21.00 BMI Method: General Appearance: No Apparent Distress, WD/WN, Anxious, Chronically ill HEENT: PERRL/EOMI Neck: Normal Inspection Respiratory: Lungs Clear, Normal Breath Sounds, No Accessory Muscle Use, No Respiratory Distress Cardiovascular: Regular Rate, Rhythm, No Murmur Gastrointestinal: Non Tender, Soft Back: No CVA Tenderness Extremity: Normal Capillary Refill, Normal Inspection, No Pedal Edema Neurologic/Psychiatric: Alert, Oriented x3, No Motor/Sensory Deficits, Normal Mood/Affect, student teaching coordinator II-XII Norm as Tested Skin: Normal Color, Warm/Dry Results Results/Procedures Labs Laboratory Tests 01/29/23 11:50 Patient resulted labs reviewed. Assessment/Plan Admission Diagnosis Assessment: Hypovolemic shock suspected GI bleed on anticoagulation History of hypercapnic respiratory failure requiring BiPAP 12/2022 Lower extremity edema Chronic COPD Afib with RVR history status post cardioversion Hypothyroidism Anxiety HTN Plan: ICU Cardiology consult General surgery consult Transfuse Proton pump inhibitor Hold anticoagulation Admission Status: Inpatient Order (span 2 midnights) Reason for Inpatient Admission: hypovolemic shock suspected GI bleed ELVA BEAUCHAMP DO Jan 29, 2023 13:17
[2023-01-29] MEDS ORDERED: LACTATED RINGERS 1,000 ML 1,000 ML IV ONE (13:30)
[2023-01-29] MEDS ORDERED: NS IV 1000 ML 1,000 ML IV SCH (13:30)
--- NOTE | 2023-01-29 15:03 | CONSULTATION REPORT ---
DATE OF SERVICE: 01/29/2023 ATTENDING PRIMARY CARE PHYSICIAN: Cony Poole DO ADMITTING PHYSICIAN: Melina Benjamin DO. HISTORY OF PRESENT ILLNESS: The patient is an 83-year-old female who was brought to the Emergency Department from [facility] due to obtundation and low oxygen saturations. She states that she got up to go the bathroom, felt weak and dizzy and then did lose consciousness. The patient was evaluated and found to have a systolic blood pressure in the 80s. Since the incident, she has been awake and alert and does answer questions appropriate. The patient was found to be anemic with a hemoglobin of 7.6. She does not recall any issues with red blood per rectum nor any dark tarry stools. She does have a history of atrial fibrillation and is anticoagulated with Xarelto 15 mg daily as well as aspirin 81 mg daily. PAST MEDICAL HISTORY: Hypertension, atrial fibrillation, hypercholesterolemia, bilateral lower extremity edema, chronic urinary tract infection, bilateral cataracts, peripheral vascular disease, history of pneumonia, COPD. PAST SURGICAL HISTORY: Right carotid endarterectomy, cardiac catheterization and ablation procedure x2. ALLERGIES: CODEINE, AMOXICILLIN. MEDICATIONS: Albuterol 2 puffs q.4 hours p.r.n., amiodarone 400 mg b.i.d., aspirin 81 mg daily, rivaroxaban 15 mg daily, atorvastatin 20 mg daily, budesonide inhaler 0.5 mg q.12 hours, formoterol fumarate 20 mcg q.12 hours, furosemide 40 mg daily, ipratropium/albuterol breathing treatments b.i.d.; levothyroxine 75 mcg 3 days a week, 88 mcg 4 days a week. Prednisone 20 mg daily, sertraline 12.5 mg daily. SOCIAL HISTORY: Previous history of smoking. No known alcohol. VITAL SIGNS: Temperature 36.4, blood pressure 102/48, pulse 63, respirations 20, pulse ox 95% on room air. REVIEW OF SYSTEMS: A well-nourished female, currently in no acute distress. She is not experiencing any shortness of breath or difficulty breathing. She did have significant weakness and felt dizzy after getting up to go to the bathroom and did lose consciousness briefly. She has had a history of constipation. No known red blood per rectum, nor any dark tarry stools. No nausea, vomiting. No fever or chills, no recent inadvertent weight loss. All other review of systems negative. PHYSICAL EXAMINATION: CHEST: Distant breath sounds and scattered wheezes bilaterally. HEART: Regular. No murmurs. EXTREMITIES: +1/3 bilateral lower extremity edema. Negative Homans sign. HEENT: No scleral icterus. No cervical lymphadenopathy. ABDOMEN: Soft, nontender, nondistended. SKIN: Warm, dry. LABORATORY DATA: WBC 14.3, hemoglobin 7.6, hematocrit 23, platelets 421. BUN 33, creatinine 1.44. INR 2.0. ASSESSMENT AND PLAN: An 83-year-old female with a syncopal episode. The patient also was found to be anemic with hemoglobin 7.6. She does have history of COPD as well as mild issues with reflux. She does not recall when her last colonoscopy was. Due to her symptomatology as well as anemia, we will proceed with resuscitation, and once stable, proceed with an EGD and colonoscopy on this admission. Job ID: [id number] DocumentID: [id number] Dictated Date: 01/29/2023 14:40:08 Dispute Specialist Date: 01/29/2023 15:01:00 Dictated By: ERNA DICKSON MD
[2023-01-29] MEDS ORDERED: diphenhydrAMINE 25 MG TABLET PO PRN (15:15)
[2023-01-29] MEDS ORDERED: HYDROmorphone INJECTION 2 MG/ML VIAL IV PRN (15:15)
[2023-01-29] MEDS ORDERED: ONDANSETRON INJECTION 4 MG/2 ML (SDV) IV PRN (15:15)
[2023-01-29] MEDS ORDERED: oxyCODONE IMMEDIATE RELEASE 5 MG TABLET PO PRN (15:15)
[2023-01-29] MEDS ORDERED: diphenhydrAMINE INJ 50 MG/ML VIAL IVP PRN (15:15)
[2023-01-29] MEDS ORDERED: LACTULOSE SYRUP 10GM/15ML 30ML UDC PO PRN (15:15)
[2023-01-29] MEDS ORDERED: CALCIUM CARBONATE 500 MG CHEW TABLET PO PRN (15:15)
[2023-01-29] MEDS ORDERED: BISACODYL 10 MG SUPPOSITORY PR PRN (15:15)
[2023-01-29] MEDS ORDERED: NS IV 500 ML 500 ML IV PRN (15:15)
[2023-01-29] MEDS ORDERED: MELATONIN 3 MG TABLET PO PRN (15:15)
[2023-01-29] MEDS ORDERED: ANTACID SUSPENSION 30 ML UDC PO PRN (15:15)
[2023-01-29] MEDS ORDERED: MILK OF MAGNESIA 400 MG/5 ML 30 ML UDC PO PRN (15:15)
[2023-01-29] MEDS ORDERED: ONDANSETRON 4 MG ORAL DISSOLVE TABLET PO PRN (15:15)
[2023-01-29] MEDS: NOREPINEPHRINE 8 MG/250 ML 250 ML IV SCH (15:35)
--- NOTE | 2023-01-29 16:56 | Tele-ICU Progress Note ---
Subjective Date Seen by a Provider: Jan 29, 2023 Subjective/Events-last exam This virtual visit was conducted using real time audio/video. Thank you for asking us to see this patient for critical care services due to syncope and HB 7.6.: PMH: COPD, CHF, CEA PE: Pale, comfortable. VSS. O2 sat 100% on 2LPM HEENT: No obvious masses, adenopathy or JVD. Chest: clear to auscultation. CV: RRR S1 S2 No murmur or added sounds. Abd: Non-tender. Bowel sounds Y. : Unremarkable. Ham N. FUEL QUALITY TECH/psychiatric: Grossly intact. No obvious focal findings. Extremities: No edema. Capillary refill < 3 seconds. Skin: unremarkable. Results: Elevated WCC 14.3, BG 115, BUN 33, Creat 1.44, Trop 0.031. Decreased Hb 7.6. CXR: Hyperinflated, clear.. Available chart/ vitals / labs / images reviewed. Video assessment done using teleICU camera, rest of exam as per RN. A/P: . Critical Care: critically ill patient. Cont. PPI, PRN O2, PRN Duonebs. replace Seb aj. For colonoscopy. Discussed with PIETER Maxwell. Asked RN to reach out to eICU if any questions or concerns later. Time spent with patient/coordination of care with other health professionals (mins): 20 Sepsis Event Evaluation Height, Weight, BMI Height: 5'3.50" Weight: 157lbs. 0.9oz. 71.207657hi; 23.35 BMI Method: Exam Exam Patient acknowledged, consented, and participated in this virtual visit which was conducted using real time audio/video Vital Signs Date Time Temp Pulse Resp B/P (MAP) Pulse Ox O2 Delivery O2 Flow Rate FiO2 01/29/23 16:08 98 Room Air 0.00 01/29/23 16:00 71 19 130/65 (101) 100 Room Air 01/29/23 16:00 36.4 65 98 21 01/29/23 15:57 100 Nasal Cannula 2.00 01/29/23 15:00 68 33 148/73 (100) 100 Room Air 01/29/23 14:00 65 20 142/63 98 Room Air 01/29/23 11:47 36.4 63 20 102/48 (66) Room Air Height & Weight Height: 5'3.50" Weight: 157lbs. 0.9oz. 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 Critical Care: Critically Ill Patient RONY GAMEZ MD Jan 29, 2023 16:56
[2023-01-29] MEDS ORDERED: RT-Ipratropium/Albuterol NEB 3 ML VIAL INH PRN (17:00)
[2023-01-29] MEDS: NS IV 1000 ML 1,000 ML IV SCH (17:49)
[2023-01-29] MEDS: RT-Ipratropium/Albuterol NEB 3 ML VIAL INH SCH (20:16)
[2023-01-29] MEDS: DOCUSATE SODIUM 100 MG CAPSULE PO SCH (21:16)
[2023-01-29] MEDS: PANTOPRAZOLE INJECTION 40 MG VIAL IV SCH (21:16)
[2023-01-29] MEDS: SENNOSIDES 8.6 MG TABLET PO SCH (21:16)
[2023-01-30] MEDS: NS IV 1000 ML 1,000 ML IV SCH ×3 (04:41→11:06)
[2023-01-30 04:53] LABS: BASOPHILS # (AUTO) 0.1 10^3/uL (0.0-0.1); BASOPHILS % (AUTO) 0 % (0-10); EOSINOPHILS # (AUTO) 0.3 10^3/uL (0.0-0.3); EOSINOPHILS % (AUTO) 2 % (0-10); HEMATOCRIT 26 % (35-52); HEMOGLOBIN 8.3 g/dL (11.5-16.0); LYMPHOCYTES # (AUTO) 0.7 10^3/uL (1.0-4.0); LYMPHOCYTES % (AUTO) 6 % (12-44); MEAN CORPUSCULAR HEMOGLOBIN 29 pg (25-34); MEAN CORPUSCULAR HGB CONC 32 g/dL (32-36); MEAN CORPUSCULAR VOLUME 89 fL (80-99); MEAN PLATELET VOLUME 8.7 fL (9.0-12.2); MONOCYTES # (AUTO) 0.6 10^3/uL (0.0-1.0); MONOCYTES % (AUTO) 5 % (0-12); NEUTROPHILS % (AUTO) 84 % (42-75); PLATELET COUNT 286 10^3/uL (130-400); WHITE BLOOD COUNT 11.9 10^3/uL (4.3-11.0)
[2023-01-30 05:05] LABS: ALBUMIN 2.6 GM/DL (3.2-4.5); POTASSIUM 2.9 MMOL/L (3.6-5.0)
[2023-01-30 05:07] LABS: CALCIUM 7.5 MG/DL (8.5-10.1)
[2023-01-30 05:08] LABS: TOTAL PROTEIN 4.9 GM/DL (6.4-8.2)
[2023-01-30 05:10] LABS: BILIRUBIN,TOTAL 1.1 MG/DL (0.1-1.0)
[2023-01-30 05:11] LABS: PHOSPHORUS 2.6 MG/DL (2.3-4.7)
[2023-01-30 05:12] LABS: CREATININE SERUM 0.95 MG/DL (0.60-1.30)
[2023-01-30 05:14] LABS: MAGNESIUM 1.7 MG/DL (1.6-2.4)
[2023-01-30] MEDS: MAGNESIUM 1 GM/100 ML IVPB 100 ML IV SCH ×5 (05:23→09:16)
[2023-01-30] MEDS: POTASSIUM CL 10MEQ/50ML IVPB 50 ML IV SCH ×7 (05:23→13:48)
[2023-01-30] MEDS: POTASSIUM CHLORIDE 20 MEQ TABLET PO SCH (05:24)
[2023-01-30] MEDS ORDERED: MAGNESIUM 1 GM/100 ML IVPB 400 ML IV ONE (05:50)
[2023-01-30] MEDS ORDERED: POTASSIUM CL 10MEQ/50ML IVPB 400 ML IV ONE (05:51)
--- NOTE | 2023-01-30 06:23 | Progress Note ---
Subjective Date Seen by a Provider: Jan 30, 2023 Time Seen by a Provider: 11:00 Subjective/Events-last exam Patient doing a little better Up in a chair today Maintained in ICU today Transfusion was well-tolerated yesterday General surgery consult for GI bleed suspected Holding anticoagulation Supportive care Review of Systems General: Fatigue, Malaise Objective Exam Last Set of Vital Signs Vital Signs Date Time Temp Pulse Resp B/P (MAP) Pulse Ox O2 Delivery O2 Flow Rate FiO2 01/30/23 04:00 65 13 154/65 (94) 96 Nasal Cannula 1.00 01/29/23 21:10 37.0 01/29/23 16:00 21 Capillary Refill : Less Than 3 Seconds I&O Intake and Output 01/30/23 00:00 Intake Total 2750 ml Output Total 0 ml Balance 2750 ml Intake Oral 750 ml IV Total 2000 ml Output Urine Total 0 ml Daily Weight Change Unsure General: Alert, Oriented X3, Cooperative, No Acute Distress, Other (Chronically ill and pale) Lungs: Clear to Auscultation, Normal Air Movement Heart: Regular Rate, Normal S1, Normal S2, No Murmurs Psych/Mental Status: Mental Status NL, Mood NL Results Lab Laboratory Tests 01/29/23 11:50: White Blood Count 14.3H, Red Blood Count 2.64L, Hemoglobin 7.6L, Hematocrit 23L, Mean Corpuscular Volume 89, Mean Corpuscular Hemoglobin 29, Mean Corpuscular Hemoglobin Concent 33, Red Cell Distribution Width 17.2H, Platelet Count 421H, Mean Platelet Volume 8.7L, Immature Granulocyte % (Auto) 1, Neutrophils (%) ( Auto) 86H, Lymphocytes (%) (Auto) 8L, Monocytes (%) (Auto) 4, Eosinophils (%) (Auto) 1, Basophils (%) (Auto) 0, Neutrophils # (Auto) 12.3H, Lymphocytes # (Auto) 1.1, Monocytes # (Auto) 0.6, Eosinophils # (Auto) 0.1, Basophils # (Auto) 0.0, Immature Granulocyte # (Auto) 0.2H, Neutrophils % (Manual) 91, Lymphocytes % (Manual) 3, Monocytes % (Manual) 4, Eosinophils % (Manual) 1, Myelocytes % 1, Clumped Platelets OCCASIONAL, Anisocytosis SLIGHT, Bushnell Cells MODERATE, Acanthocytes MODERATE, Schistocytes SLIGHT, Erythrocyte Sedimentation Rate 63H, Prothrombin Time 23.0H, INR Comment 2.0H, Activated Partial Thromboplast Time 35, D-Dimer 0.34, Sodium Level 140, Potassium Level 3.2L, Chloride Level 100, Carbon Dioxide Level 33H, Anion Gap 7, Blood Urea Nitrogen 33H, Creatinine 1.44H , Estimat Glomerular Filtration Rate 36, BUN/Creatinine Ratio 23, Glucose Level 115H, Calcium Level 8.4L, Corrected Calcium 9.1, Magnesium Level 2.0, Iron Level 26L, Total Bilirubin 0.6, Aspartate Amino Transf (AST/SGOT) 20, Alanine Aminotransferase (ALT/SGPT) 35, Alkaline Phosphatase 59, Total Creatine Kinase 28L, Creatine Kinase MB 2.9, Myoglobin 56.3, Troponin I 0.031H, C-Reactive Protein High Sensitivity 4.93H, B-Type Natriuretic Peptide 150.4H, Total Protein 5.8L, Albumin 3.1L, Vitamin B12 Level >2000H 01/29/23 12:17: Urine Color YELLOW, Urine Clarity CLEAR, Urine pH 5.5, Urine Specific [place] 1.020, Urine Protein 1+H, Urine Glucose (UA) NEGATIVE, Urine Ketones NEGATIVE, Urine Nitrite NEGATIVE, Urine Bilirubin 1+H, Urine Urobilinogen 1.0, Urine Leukocyte Esterase NEGATIVE, Urine RBC (Auto) NEGATIVE, Urine RBC RARE, Urine WBC 0-2, Urine Squamous Epithelial Cells 5-10, Urine Crystals PRESENTH, Urine Amorphous Sediment MOD ESTEFANI URATESH, Urine Bacteria NEGATIVE, Urine Casts PRESENT, Urine Hyaline Casts 10-25H, Urine Mucus NEGATIVE, Urine Culture Indicated NO 01/30/23 04:18: White Blood Count 11.9H, Red Blood Count 2.89L, Hemoglobin 8.3L, Hematocrit 26L, Mean Corpuscular Volume 89, Mean Corpuscular Hemoglobin 29, Mean Corpuscular Hemoglobin Concent 32, Red Cell Distribution Width 16.0H, Platelet Count 286, Mean Platelet Volume 8.7L, Immature Granulocyte % (Auto) 2, Neutrophils (%) (Auto) 84H, Lymphocytes (%) (Auto) 6L, Monocytes (%) (Auto) 5, Eosinophils (%) (Auto) 2, Basophils (%) (Auto) 0, Neutrophils # (Auto) 10.0H, Lymphocytes # (Auto) 0.7L, Monocytes # (Auto) 0.6, Eosinophils # (Auto) 0.3, Basophils # (Auto) 0.1, Immature Granulocyte # (Auto) 0.2H, Sodium Level 139, Potassium Level 2.9L, Chloride Level 105, Carbon Dioxide Level 25, Anion Gap 9, Blood Urea Nitrogen 21H, Creatinine 0.95, Estimat Glomerular Filtration Rate 59, BUN /Creatinine Ratio 22, Glucose Level 79, Calcium Level 7.5L, Corrected Calcium 8.6, Magnesium Level 1.7, Total Bilirubin 1.1H, Aspartate Amino Transf (AST/SGOT) 22, Alanine Aminotransferase (ALT/SGPT) 30, Alkaline Phosphatase 53, Total Protein 4.9L, Albumin 2.6L, Phosphorus Level 2.6 Assessment/Plan Assessment/Plan Assess & Plan/Chief Complaint Assessment: Hypovolemic shock suspected GI bleed on anticoagulation wth symptomatic anemia causing syncopal episode at long-term when on bedside commode Severe anemia requiring 1 unit of blood consulting surgery for GI bleed eval History of hypercapnic respiratory failure requiring BiPAP 12/2022 Lower extremity edema Chronic COPD Afib with RVR history status post cardioversion in the past Hypothyroidism Anxiety HTN Plan: ICU Cardiology consult General surgery consult Transfuse prn Proton pump inhibitor Hold anticoagulation Clinical Quality Measures DVT/VTE Risk/Contraindication: Contraindications-Pharm: Other *list below* Other: ELVA GREGORY DO Jan 30, 2023 06:23
[2023-01-30] MEDS: RT-Ipratropium/Albuterol NEB 3 ML VIAL INH SCH ×2 (07:15→19:42)
--- NOTE | 2023-01-30 08:16 | Diagnostic Imaging Report ---
EXAMINATION: Chest radiograph, portable AP view. DATE: 01/30/2023 6:15 AM INDICATION: 83-year-old female, hypoxia. COMPARISON: January 29, 2023. FINDINGS: Heart size and mediastinal contours are unchanged. There is no identified pneumothorax. There is a right pleural effusion. There are bilateral interstitial and/or alveolar opacities. The right upper lobe alveolar consolidation is an interval change. There is interval worsening of consolidation in the right lung base. IMPRESSION: 1. New right upper lobe airspace consolidation as well as increased right basilar airspace consolidation which may relate to pneumonia or other alveolar consolidative process. There is also likely a right pleural effusion. Dictated by: Dictated on workstation # [id number]
[2023-01-30] MEDS: DOCUSATE SODIUM 100 MG CAPSULE PO SCH ×2 (09:16→20:26)
[2023-01-30] MEDS: SENNOSIDES 8.6 MG TABLET PO SCH ×2 (09:16→20:26)
[2023-01-30] MEDS: PANTOPRAZOLE INJECTION 40 MG VIAL IV SCH ×2 (09:16→20:26)
[2023-01-30] MEDS ORDERED: IRON SUCROSE 200 MG/10 ML VIAL IV NR (11:00)
[2023-01-30] MEDS: NOREPINEPHRINE 8 MG/250 ML 250 ML IV SCH (11:04)
--- NOTE | 2023-01-30 12:11 | Progress Note ---
Subjective Date Seen by a Provider: Jan 30, 2023 Time Seen by a Provider: 11:30 Subjective/Events-last exam Patient seen with Dr. Tracy. Patient reports doing ok. Denies any N/V or abdominal pain. Tolerating diet. Objective Exam Vital Signs Date Time Temp Pulse Resp B/P (MAP) Pulse Ox O2 Delivery O2 Flow Rate FiO2 01/30/23 12:00 65 18 110/48 (72) 99 Nasal Cannula 1.00 01/30/23 11:00 68 22 119/47 (78) 94 Nasal Cannula 1.00 01/30/23 10:00 65 12 118/45 (70) 95 Nasal Cannula 1.00 01/30/23 09:00 72 26 92 Nasal Cannula 1.00 01/30/23 08:00 71 22 121/78 (102) 91 Nasal Cannula 1.00 01/30/23 07:41 36.7 01/30/23 07:17 95 Nasal Cannula 2.00 01/30/23 07:00 66 01/30/23 07:00 66 14 159/69 (99) 94 Nasal Cannula 1.00 01/30/23 06:00 67 32 165/70 (101) 93 Nasal Cannula 1.00 01/30/23 05:00 64 12 162/88 (112) 91 Nasal Cannula 1.00 01/30/23 04:00 65 13 154/65 (94) 96 Nasal Cannula 1.00 01/30/23 04:00 Room Air 01/30/23 03:00 68 13 162/63 (96) 93 Nasal Cannula 1.00 01/30/23 02:00 66 15 170/68 (102) 98 Nasal Cannula 1.00 01/30/23 01:00 70 01/30/23 01:00 66 20 166/64 (98) 97 Nasal Cannula 1.00 01/30/23 00:00 65 16 126/52 (76) 98 Nasal Cannula 1.00 01/29/23 23:49 Room Air 01/29/23 23:03 Nasal Cannula 1.00 01/29/23 23:00 68 14 148/59 (88) 98 Room Air 01/29/23 22:00 73 23 136/66 (89) 97 Room Air 01/29/23 21:30 77 17 144/60 71 Room Air 01/29/23 21:10 37.0 74 17 144/60 97 Room Air 01/29/23 21:00 75 21 161/68 (99) 95 Room Air 01/29/23 21:00 75 52 150/61 92 01/29/23 20:30 74 20 151/55 94 Room Air 01/29/23 20:16 100 Nasal Cannula 2.00 01/29/23 20:13 Room Air 01/29/23 20:06 36.9 68 25 153/75 (101) 100 Nasal Cannula 2.00 01/29/23 20:00 70 19 153/75 99 Room Air 01/29/23 20:00 Room Air 01/29/23 19:30 36.9 163/65 99 Room Air 01/29/23 19:00 71 01/29/23 19:00 70 29 166/74 (104) 100 Nasal Cannula 2.00 01/29/23 19:00 78 161/76 100 Room Air 01/29/23 18:00 70 152/60 (101) 100 Nasal Cannula 2.00 01/29/23 17:45 36.6 67 16 137/67 Nasal Cannula 2.00 01/29/23 17:33 Nasal Cannula 2.00 01/29/23 17:30 36.6 70 20 132/71 100 Nasal Cannula 2.00 01/29/23 17:00 70 122/56 (83) 90 Room Air 01/29/23 16:08 98 Room Air 0.00 01/29/23 16:00 71 19 130/65 (101) 100 Room Air 01/29/23 16:00 36.4 65 98 21 01/29/23 15:57 100 Nasal Cannula 2.00 01/29/23 15:00 68 33 148/73 (100) 100 Room Air 01/29/23 14:00 65 20 142/63 98 Room Air I & O 01/30/23 07:00 Intake Total 3925 ml Output Total 500 ml Balance 3425 ml Capillary Refill : Less Than 3 Seconds General Appearance: No Apparent Distress, WD/WN Neck: Normal Inspection, Supple Respiratory: No Accessory Muscle Use, No Respiratory Distress Gastrointestinal: normal bowel sounds, non tender, soft Extremity: Normal Inspection, Normal Range of Motion Neurologic/Psychiatric: Alert, Oriented x3 Skin: Normal Color, Warm/Dry Results Lab Laboratory Tests 01/29/23 12:17: Urine Color YELLOW, Urine Clarity CLEAR, Urine pH 5.5, Urine Specific [place] 1.020, Urine Protein 1+H, Urine Glucose (UA) NEGATIVE, Urine Ketones NEGATIVE, Urine Nitrite NEGATIVE, Urine Bilirubin 1+H, Urine Urobilinogen 1.0, Urine Leukocyte Esterase NEGATIVE, Urine RBC (Auto) NEGATIVE, Urine RBC RARE, Urine WBC 0-2, Urine Squamous Epithelial Cells 5-10, Urine Crystals PRESENTH, Urine Amorphous Sediment MOD ESTEFANI URATESH, Urine Bacteria NEGATIVE, Urine Casts PRESENT, Urine Hyaline Casts 10-25H, Urine Mucus NEGATIVE, Urine Culture Indicated NO 01/30/23 04:18: White Blood Count 11.9H, Red Blood Count 2.89L, Hemoglobin 8.3L, Hematocrit 26L, Mean Corpuscular Volume 89, Mean Corpuscular Hemoglobin 29, Mean Corpuscular Hemoglobin Concent 32, Red Cell Distribution Width 16.0H, Platelet Count 286, Mean Platelet Volume 8.7L, Immature Granulocyte % (Auto) 2, Neutrophils (%) (Auto) 84H, Lymphocytes (%) (Auto) 6L, Monocytes (%) (Auto) 5, Eosinophils (%) (Auto) 2, Basophils (%) (Auto) 0, Neutrophils # (Auto) 10.0H, Lymphocytes # (Auto) 0.7L, Monocytes # (Auto) 0.6, Eosinophils # (Auto) 0.3, Basophils # (Auto) 0.1, Immature Granulocyte # (Auto) 0.2H, Sodium Level 139, Potassium Level 2.9L, Chloride Level 105, Carbon Dioxide Level 25, Anion Gap 9, Blood Urea Nitrogen 21H, Creatinine 0.95, Estimat Glomerular Filtration Rate 59, BUN/Creatinine Ratio 22, Glucose Level 79, Calcium Level 7.5L, Corrected Calcium 8.6, Phosphorus Level 2.6, Magnesium Level 1.7, Total Bilirubin 1.1H, Aspartate Amino Transf (AST/SGOT) 22, Alanine Aminotransferase (ALT/SGPT) 30, Alkaline Phosphatase 53, Total Protein 4.9L, Albumin 2.6L Assessment/Plan Assessment/Plan Assess & Plan/Chief Complaint An 83-year-old female with a syncopal episode as well as anemia VSS WBC 11.9 Hbg 8.3 Continue with PPI Will proceed with colonic prep today and proceed with EGD and colonoscopy tomorrow Clinical Quality Measures DVT/VTE Risk/Contraindication: Contraindications-Pharm: Other *list below* Other: PATRICIA SANCHEZ HYDROGENATION OPERATOR Jan 30, 2023 12:10
--- NOTE | 2023-01-30 12:15 | Tele-ICU Progress Note ---
Subjective Date Seen by a Provider: Jan 30, 2023 Time Seen by a Provider: 12:14 Subjective/Events-last exam (Tele-ICU Physician , Progress Note ) Service provided via interactive audio and video telecommunications E-CARE system to a patient admitted to ICU bed in [facility]. Patient is seen today due to persistent need of ICU care Available chart/ vitals / labs / Images reviewed Video assessment done using teleICU camera, rest of exam as per RN Discussed with RN Events overnight : Afebrile hemodynamically stable Respiratory - 1L I/O = Drips: ns 70 Pressors- no Hospital course: (01/29) 83F Admitted from MD for syncope, recent COVID infection 10 days ago-CXR NEG now. Anemia (on xarelto), KAY. COPD hx. Plan EGD/colonoscopy this admit A/P Syncope - presume due to anemia- monitor - CTH - neg Anemia - Hb 7.6 - > s/p 1 u PRBC 01/29 --> hb 8.3 - PPI bid iv - EGD + -colonoscoy 01/31 in plans RUL PNA . R effusion tiny - reported on cxr 01/30 - as per patiemnt minimal cough - not new - afebrile - will monitor carefully off abx KAY - resolved with resuscitation PAF - chronic , s/p ILR , s/p cardioversions 12/14 -OAC with Xarelto COPD ( nocturnal hypoxemia, PSG - neg for CONSTANZA 2020 -moderately advanced emphysematous changes on CT 2019 Mild pulmonary hypertension,-PASP 40-45 mmHg replace lytes Lines : periph , (Central Line Necessity Reviewed) Ham: void OG: Nutrition: po Analgesia: Anxiety/ delirium VTE Prophylaxis: scd , xarelto on gold for amnemia Stress Ulcer Prophylaxis: ppi Plans in collaboration with bedside consultants and IM MDs. Discussed with RN to reach out if any questions or concerns Case and care daily discussed on multidisciplinary rounds ( RN, PharmD, Chief Mate , Respiratory Therapy, shortage worker ) A total of 31 minutes of critical care time was devoted to this patient today, required to treat and/or prevent further deterioration of critical care condition ( as above ) . I am remotely monitoring this patient from another state. I am unable to do the bedside exam, and history/physical and pertinent information is taken from other notes in the computer and bedside staff. Sepsis Event Evaluation Height, Weight, BMI Height: 5'3.50" Weight: 157lbs. 0.9oz. 71.180639ri; 23.28 BMI Method: Exam Exam Patient acknowledged, consented, and participated in this virtual visit which was conducted using real time audio/video Vital Signs Date Time Temp Pulse Resp B/P (MAP) Pulse Ox O2 Delivery O2 Flow Rate FiO2 01/30/23 12:00 36.8 01/30/23 12:00 65 18 110/48 (72) 99 Nasal Cannula 1.00 01/30/23 11:00 68 22 119/47 (78) 94 Nasal Cannula 1.00 01/30/23 10:00 65 12 118/45 (70) 95 Nasal Cannula 1.00 01/30/23 09:00 72 26 92 Nasal Cannula 1.00 01/30/23 08:00 71 22 121/78 (102) 91 Nasal Cannula 1.00 01/30/23 07:41 36.7 01/30/23 07:17 95 Nasal Cannula 2.00 01/30/23 07:00 66 01/30/23 07:00 66 14 159/69 (99) 94 Nasal Cannula 1.00 01/30/23 06:00 67 32 165/70 (101) 93 Nasal Cannula 1.00 01/30/23 05:00 64 12 162/88 (112) 91 Nasal Cannula 1.00 01/30/23 04:00 65 13 154/65 (94) 96 Nasal Cannula 1.00 01/30/23 04:00 Room Air 01/30/23 03:00 68 13 162/63 (96) 93 Nasal Cannula 1.00 01/30/23 02:00 66 15 170/68 (102) 98 Nasal Cannula 1.00 01/30/23 01:00 70 01/30/23 01:00 66 20 166/64 (98) 97 Nasal Cannula 1.00 01/30/23 00:00 65 16 126/52 (76) 98 Nasal Cannula 1.00 01/29/23 23:49 Room Air 01/29/23 23:03 Nasal Cannula 1.00 01/29/23 23:00 68 14 148/59 (88) 98 Room Air 01/29/23 22:00 73 23 136/66 (89) 97 Room Air 01/29/23 21:30 77 17 144/60 71 Room Air 01/29/23 21:10 37.0 74 17 144/60 97 Room Air 01/29/23 21:00 75 21 161/68 (99) 95 Room Air 01/29/23 21:00 75 52 150/61 92 01/29/23 20:30 74 20 151/55 94 Room Air 01/29/23 20:16 100 Nasal Cannula 2.00 01/29/23 20:13 Room Air 01/29/23 20:06 36.9 68 25 153/75 (101) 100 Nasal Cannula 2.00 01/29/23 20:00 70 19 153/75 99 Room Air 01/29/23 20:00 Room Air 01/29/23 19:30 36.9 163/65 99 Room Air 01/29/23 19:00 71 01/29/23 19:00 70 29 166/74 (104) 100 Nasal Cannula 2.00 01/29/23 19:00 78 161/76 100 Room Air 01/29/23 18:00 70 152/60 (101) 100 Nasal Cannula 2.00 01/29/23 17:45 36.6 67 16 137/67 Nasal Cannula 2.00 01/29/23 17:33 Nasal Cannula 2.00 01/29/23 17:30 36.6 70 20 132/71 100 Nasal Cannula 2.00 01/29/23 17:00 70 122/56 (83) 90 Room Air 01/29/23 16:08 98 Room Air 0.00 01/29/23 16:00 71 19 130/65 (101) 100 Room Air 01/29/23 16:00 36.4 65 98 21 01/29/23 15:57 100 Nasal Cannula 2.00 01/29/23 15:00 68 33 148/73 (100) 100 Room Air 01/29/23 14:00 65 20 142/63 98 Room Air I & O 01/30/23 07:00 Intake Total 3925 ml Output Total 500 ml Balance 3425 ml Height & Weight Height: 5'3.50" Weight: 157lbs. 0.9oz. 71.653847mg; 23.28 BMI Method: General Appearance: No Apparent Distress, WD/WN HEENT: PERRL/EOMI Neck: Normal Inspection, Supple Respiratory: No Accessory Muscle Use, No Respiratory Distress Cardiovascular: Regular Rate, Rhythm, No Murmur Capillary Refill: Less Than 3 Seconds Gastrointestinal: normal bowel sounds, non tender, soft Extremity: Normal Inspection, Normal Range of Motion Neurologic/Psychiatric: Alert, Oriented x3 Skin: Normal Color, Warm/Dry Results Lab Laboratory Tests 01/29/23 11:50 01/30/23 04:18 Assessment/Plan Assessment/Plan 1 TOMA CORREIA MD Jan 30, 2023 12:15
--- NOTE | 2023-01-30 13:08 | Consultation-Cardiology ---
HPI-Cardiology Cardiology Consultation: Date of Consultation 01/30/23 Date of Admission Attending Physician Cony Poole DO Admitting Physician Admitting Physician: Melina Beauchapm DO Attending Physician: Melina Beauchamp DO Consulting Physician Ban GARNICA MD HPI: Time Seen by a Provider: 11:30 Chief Complaint: Syncope This is a 83-year-old lady who was recently seen by cardiology. She has history of paroxysmal atrial fibrillation. Currently in sinus rhythm. On oral anticoagulation. Presented with syncope and significant anemia. Review of Systems-Cardiology Review of Systems Constitutional: no symptoms reported Eyes: no symptoms reported Ears/Nose/Throat: no symptoms reported Respiratory: no symptoms reported Cardiovascular: no symptoms reported Hematologic: anemia [id number] Hx Patient Social History Marrital Status: Employed/Student: retired Smoking Status: Never a Smoker Alcohol Use?: No Pt feels they are or have been: No Immunizations Up To Date Tetanus Booster (TDap): Unknown Date of Pneumonia Vaccine: Jan 13, 2016 Date of Influenza Vaccine: May 28, 2021 Past Medical History PMH As described under Assessment. Family Medical History Family Medical History: She denies any family h/o CAD. Family History: Asthma Colon cancer Deafness or hearing loss Diabetes mellitus Hypertension Neoplasm Thyroid disease Allergies and Home Medications Allergies Coded Allergies: codeine (Unverified Allergy, Mild, Vomiting, 02/18/22) adhesive tape (Unverified Allergy, Unknown, 02/18/22) amoxicillin (Unverified Allergy, Unknown, 02/18/22) Patient Home Medication List Home Medication List Reviewed: Yes Acetaminophen (Tylenol) 325 Mg Tablet, 325 MG PO Q4H PRN for PAIN-MILD (1-4) Prescribed by: MELINA BEAUCHAMP on 12/21/22948 Albuterol Sulfate (Ventolin Hfa) 1 Puff Puff, 2 PUFF INH Q4H PRN for SHORTNESS OF BREATH Prescribed by: MELINA BEAUCHAMP on 12/21/22948 Amiodarone HCl (Amiodarone HCl) 200 Mg Tablet, 400 MG PO BID Prescribed by: MELINA BEAUCHAMP on 12/21/22948 Aspirin (Aspirin EC) 81 Mg Tablet.dr, 81 MG PO HS Prescribed by: MELINA BEAUCHAMP on 12/21/22948 Atorvastatin Calcium (Atorvastatin Calcium) 20 Mg Tablet, 20 MG PO HS Prescribed by: MELINA BEAUCHAMP on 12/21/22948 Bifidobacterium Infantis (Align) 10.5 Mg (10 Million Cell) Tab.chew, 10.5 MG PO HS Prescribed by: MELINA BEAUCHAMP on 12/21/22948 Budesonide (Budesonide) 0.5 Mg/2 Ml Ampul.neb, 0.5 MG IH Q12H Prescribed by: MELINA BEAUCHAMP on 12/21/22948 Cholecalciferol (Vitamin D3) (Vitamin D3) 50 Mcg (2000 Unit) Capsule, 50 MCG PO DAILY Prescribed by: MELINA BEAUCHAMP on 12/21/22948 Cyanocobalamin (Vitamin B-12) (Vitamin B-12) 500 Mcg Tablet, 500 MCG PO HS Prescribed by: MELINA BEAUCHAMP on 12/21/22948 Formoterol Fumarate (Formoterol Fumarate) 20 Mcg/2 Ml Vial.neb, 20 MCG IH Q12H Prescribed by: MELINA BEAUCHAMP on 12/21/22948 Furosemide (Lasix) 40 Mg Tablet, 40 MG PO DAILY Prescribed by: MELINA BEAUCHAMP on 12/21/22951 Ipratropium/Albuterol Sulfate (Iprat-Albut 0.5-3(2.5) mg/3 ml) 0.5 Mg-3 Mg (2.5 Mg Base)/3 Ml Ampul.neb, 3 ML INH RTBID Prescribed by: MELINA BEAUCHAMP on 12/21/22948 Levothyroxine Sodium (Synthroid) 75 Mcg Tablet, 75 MCG PO MO,,FR Prescribed by: MELINA BEAUCHAMP on 12/21/22948 Levothyroxine Sodium (Synthroid) 88 Mcg Tablet, 88 MCG PO CHAVEZ,,,SA Prescribed by: MELINA BEAUCHAMP on 12/21/22948 Polyethylene Glycol 3350 (Miralax) 17 Gram Powd.pack, 17 GM PO DAILY Prescribed by: MELINA BEAUCHAMP on 12/21/22948 Potassium Chloride (Klor-Con M20) 20 Meq Tab.er.prt, 20 MEQ PO DAILY@0900 Prescribed by: MELINA BEAUCHAMP on 12/21/22948 Prednisone (Prednisone) 20 Mg Tab, 20 MG PO DAILY@0700 Prescribed by: MELINA BEAUCHAMP on 12/21/22 0949 Rivaroxaban (Xarelto Tablet) 15 Mg Tablet, 15 MG PO 1800 Prescribed by: MELINA BEAUCHAMP on 12/21/22 0949 Sertraline HCl (Sertraline HCl) 25 Mg Tablet, 12.5 MG PO HS Prescribed by: MELINA BEAUCHAMP on 12/21/22 0949 Exam Vital Signs Vital Signs Date Time Temp Pulse Resp B/P (MAP) Pulse Ox O2 Delivery O2 Flow Rate FiO2 01/30/23 20:00 65 19 153/67 (95) 94 Nasal Cannula 1.00 01/30/23 19:29 37.0 01/29/23 16:00 21 Physical Exam Constitutional: No respiratory distress. Chest: Bilateral breath sounds. CVS: Regular rate and rhythm. No significant murmur. Abdomen: Soft Nonfocal neuro exam. No pedal edema Labs Laboratory Tests Test 01/30/23 04:18 01/30/23 19:05 01/30/23 20:17 Range/Units White Blood Count 11.9 H 4.3-11.0 10^3/uL Red Blood Count 2.89 L 3.80-5.11 10^6/uL Hemoglobin 8.3 L 11.5-16.0 g/dL Hematocrit 26 L 35-52 % Mean Corpuscular Volume 89 80-99 fL Mean Corpuscular Hemoglobin 29 25-34 pg Mean Corpuscular Hemoglobin Concent 32 32-36 g/dL Red Cell Distribution Width 16.0 H 10.0-14.5 % Platelet Count 286 130-400 10^3/uL Mean Platelet Volume 8.7 L 9.0-12.2 fL Immature Granulocyte % (Auto) 2 % Neutrophils (%) (Auto) 84 H 42-75 % Lymphocytes (%) (Auto) 6 L 12-44 % Monocytes (%) (Auto) 5 0-12 % Eosinophils (%) (Auto) 2 0-10 % Basophils (%) (Auto) 0 0-10 % Neutrophils # (Auto) 10.0 H 1.8-7.8 10^3/uL Lymphocytes # (Auto) 0.7 L 1.0-4.0 10^3/uL Monocytes # (Auto) 0.6 0.0-1.0 10^3/uL Eosinophils # (Auto) 0.3 0.0-0.3 10^3/uL Basophils # (Auto) 0.1 0.0-0.1 10^3/uL Immature Granulocyte # (Auto) 0.2 H 0.0-0.1 10^3/uL Sodium Level 139 136 135-145 MMOL/L Potassium Level 2.9 L 4.3 3.6-5.0 MMOL/L Chloride Level 105 102 98-107 MMOL/L Carbon Dioxide Level 25 25 21-32 MMOL/L Anion Gap 9 9 5-14 MMOL/L Blood Urea Nitrogen 21 H 17 7-18 MG/DL Creatinine 0.95 0.84 0.60-1.30 MG/DL Estimat Glomerular Filtration Rate 59 69 BUN/Creatinine Ratio 22 20 Glucose Level 79 94 70-105 MG/DL Calcium Level 7.5 L 7.9 L 8.5-10.1 MG/DL Corrected Calcium 8.6 8.5-10.1 MG/DL Phosphorus Level 2.6 2.3-4.7 MG/DL Magnesium Level 1.7 1.6-2.4 MG/DL Total Bilirubin 1.1 H 0.1-1.0 MG/DL Aspartate Amino Transf (AST/SGOT) 22 5-34 U/L Alanine Aminotransferase (ALT/SGPT) 30 0-55 U/L Alkaline Phosphatase 53 40-136 U/L Total Protein 4.9 L 6.4-8.2 GM/DL Albumin 2.6 L 3.2-4.5 GM/DL Stool Occult Blood Immunoassay POSITIVE H NEGATIVE ECG Impression ECG Initial ECG Rhythm: Normal Sinus A/P-Cardiology Assessment/Admission Diagnosis Severe anemia, syncope. Awaiting upper and lower endoscopy with Dr. DICKSON. Hold oral anticoagulation. Acute on chronic diastolic CHF - MPI of 09-22-2022 showed no evidence of ischemia or infarction. No regional wall motion abnormality. MPI 56% - clinically improving ; shortness of breath significantly improved ?Pneumonia - management per medical services SSS and PAF - S/P ILR implant 03-01-[address] Garnica - OAC with Xarelto -hold due to severe anemia and possible bleeding. - EP consult with Dr. Miller who has advised continued medical management, recommended starting Flecainide or Amiodarone per last note in Jul 2022. - ECG on 10-14-22: NSR with LBBB and PACs - Recurrent A Fib for which she underwent cardioversion on 11/16/[address] Green - was started on Flecainide 100mg BID - a-fib with RVR on EKG of 12-10-22. Flecainide d/c'd, amiodarone initiated on 12-11-22 - ext elec CV to sinus rhythm on 12-14-22 Hypothyroidism,treated with thyroid replacement therapy. Managed by PCP Hypertension, stable Carotid art disease, history of s/p R CEA by Dr Adams on 05/26/21 at [facility] [place] Mild bilat dz per u/s of 09-10-2021 Mitral regurg and mild pulm htn - Echocardiogram of 12-04-[address] Garnica showed LVEF 55-65%. LA mildly dilated. Mod to severe MR. PASP 40-45 mmHg - Echocardiogram of 09-02-20 showed LVEF 55-60%. Grade 1 diastolic dysfunction. Mild MR. AoV sclerosis with mild regurg. PASP 40-45 mmHg - sleep studies by Dr. Brown on 02-14-21 did not indicate sleep apnea - a-fib seen during the test - Echo of 12-11-22: LVEF 55-60%, mod to sev enlargement of LA, mild enlargement of RA, mild to mod MR, triv AI, L pleural eff, PASP 45-50 mmHg COPD with nocturnal hypoxemia Quit smoking when she was in her 40's Chronic, bilateral leg swelling, likely related to venous insuff Chronic scoliosis and degenerative cervical spinal disease (chronically stiff neck and shoulders) Plan Awaiting upper and lower GI endoscopy with Dr. DICKSON. Hold oral anticoagulation. Ban GARNICA MD Jan 30, 2023 13:08
--- NOTE | 2023-01-30 13:18 | Progress Note-Pre Operative ---
Pre-Operative Progress Note Date of Available H&P: Jan 30, 2023 Date H&P Reviewed: Jan 30, 2023 Time H&P Reviewed: 13:00 History & Physical: No changes noted Pre-Operative Diagnosis: syncope, anemia ERNA DICKSON MD Jan 30, 2023 13:18
[2023-01-30] MEDS: MILK OF MAGNESIA 400 MG/5 ML 30 ML UDC PO SCH ×5 (14:56→23:00)
[2023-01-30 20:36] LABS: POTASSIUM 4.3 MMOL/L (3.6-5.0)
[2023-01-30 20:37] LABS: CALCIUM 7.9 MG/DL (8.5-10.1)
[2023-01-30 20:42] LABS: CREATININE SERUM 0.84 MG/DL (0.60-1.30)
[2023-01-31] MEDS: MILK OF MAGNESIA 400 MG/5 ML 30 ML UDC PO SCH ×7 (00:49→12:06)
[2023-01-31 04:18] LABS: BASOPHILS # (AUTO) 0.1 10^3/uL (0.0-0.1); BASOPHILS % (AUTO) 1 % (0-10); EOSINOPHILS # (AUTO) 0.3 10^3/uL (0.0-0.3); EOSINOPHILS % (AUTO) 3 % (0-10); HEMATOCRIT 27 % (35-52); HEMOGLOBIN 8.8 g/dL (11.5-16.0); LYMPHOCYTES # (AUTO) 0.5 10^3/uL (1.0-4.0); LYMPHOCYTES % (AUTO) 5 % (12-44); MEAN CORPUSCULAR HEMOGLOBIN 29 pg (25-34); MEAN CORPUSCULAR HGB CONC 33 g/dL (32-36); MEAN CORPUSCULAR VOLUME 89 fL (80-99); MEAN PLATELET VOLUME 8.9 fL (9.0-12.2); MONOCYTES # (AUTO) 0.5 10^3/uL (0.0-1.0); MONOCYTES % (AUTO) 4 % (0-12); NEUTROPHILS # (AUTO) 10.1 10^3/uL (1.8-7.8); NEUTROPHILS % (AUTO) 87 % (42-75); PLATELET COUNT 307 10^3/uL (130-400); WHITE BLOOD COUNT 11.6 10^3/uL (4.3-11.0)
[2023-01-31] MEDS: NS IV 1000 ML 1,000 ML IV SCH ×3 (04:19→21:56)
[2023-01-31 04:31] LABS: ALBUMIN 2.6 GM/DL (3.2-4.5); POTASSIUM 3.6 MMOL/L (3.6-5.0)
[2023-01-31 04:33] LABS: CALCIUM 7.7 MG/DL (8.5-10.1)
[2023-01-31 04:34] LABS: TOTAL PROTEIN 5.2 GM/DL (6.4-8.2)
[2023-01-31 04:36] LABS: BILIRUBIN,TOTAL 0.8 MG/DL (0.1-1.0)
[2023-01-31 04:38] LABS: CREATININE SERUM 0.79 MG/DL (0.60-1.30)
[2023-01-31 04:40] LABS: MAGNESIUM 2.7 MG/DL (1.6-2.4)
[2023-01-31] MEDS ORDERED: POTASSIUM CL 10MEQ/50ML IVPB 200 ML IV ONE (04:57)
[2023-01-31] MEDS: POTASSIUM CL 10MEQ/50ML IVPB 50 ML IV SCH ×5 (05:00→07:58)
[2023-01-31] MEDS: NOREPINEPHRINE 8 MG/250 ML 250 ML IV SCH (05:11)
[2023-01-31] MEDS: MAGNESIUM 1 GM/100 ML IVPB 100 ML IV SCH (06:06)
[2023-01-31] MEDS: POTASSIUM CHLORIDE 20 MEQ TABLET PO SCH (06:06)
--- NOTE | 2023-01-31 06:25 | Progress Note ---
Subjective Date Seen by a Provider: Jan 31, 2023 Time Seen by a Provider: 11:00 Subjective/Events-last exam Patient doing much better Gastritis revealed on EGD and colonoscopy as source of bleed During colon prep it was noted she had dark stools Patient drowsy but much improved Review of Systems General: Fatigue, Malaise Objective Exam Last Set of Vital Signs Vital Signs Date Time Temp Pulse Resp B/P (MAP) Pulse Ox O2 Delivery O2 Flow Rate FiO2 01/31/23 06:00 70 18 147/101 (116) 95 Nasal Cannula 1.00 01/30/23 19:29 37.0 01/29/23 16:00 21 Capillary Refill : Less Than 3 Seconds I&O Intake and Output 01/31/23 00:00 Intake Total 3375 ml Output Total 700 ml Balance 2675 ml Intake Oral 1475 ml IV Total 1900 ml Output Urine Total 700 ml # Voids 4 # Bowel Movements 1 General: Alert, Oriented X3, Cooperative, No Acute Distress Lungs: Clear to Auscultation, Normal Air Movement Heart: Regular Rate, Normal S1, Normal S2, No Murmurs Psych/Mental Status: Mental Status NL, Mood NL Results Lab Laboratory Tests 01/30/23 19:05: Stool Occult Blood Immunoassay POSITIVEH 01/30/23 20:17: Sodium Level 136, Potassium Level 4.3, Chloride Level 102, Carbon Dioxide Level 25, Anion Gap 9, Blood Urea Nitrogen 17, Creatinine 0.84, Estimat Glomerular Filtration Rate 69, BUN/Creatinine Ratio 20, Glucose Level 94, Calcium Level 7.9L 01/31/23 03:39: Sodium Level 139, Potassium Level 3.6, Chloride Level 102, Carbon Dioxide Level 29, Anion Gap 8, Blood Urea Nitrogen 12, Creatinine 0.79, Estimat Glomerular Filtration Rate 74, BUN/Creatinine Ratio 15, Glucose Level 91, Calcium Level 7.7L, White Blood Count 11.6H, Red Blood Count 3.03L, Hemoglobin 8.8L, Hematocrit 27L, Mean Corpuscular Volume 89, Mean Corpuscular Hemoglobin 29, Mean Corpuscular Hemoglobin Concent 33, Red Cell Distribution Width 16.4H, Platelet Count 307, Mean Platelet Volume 8.9L, Immature Granulocyte % (Auto) 1, Neutrophils (%) (Auto) 87H, Lymphocytes (%) (Auto) 5L, Monocytes (%) (Auto) 4, Eosinophils (%) (Auto) 3, Basophils (%) (Auto) 1, Neutrophils # (Auto) 10.1H, Lymphocytes # (Auto) 0.5L, Monocytes # (Auto) 0.5, Eosinophils # (Auto) 0.3, Basophils # (Auto) 0.1, Immature Granulocyte # (Auto) 0.1, Corrected Calcium 8.8, Phosphorus Level 2.0L, Magnesium Level 2.7H, Total Bilirubin 0.8, Aspartate Amino Transf (AST/SGOT) 21, Alanine Aminotransferase (ALT/SGPT) 25, Alkaline Phosphatase 57, Total Protein 5.2L, Albumin 2.6L Microbiology 01/29/23 MRSA Screen - Final, Complete MRSA not isolated Assessment/Plan Assessment/Plan Assess & Plan/Chief Complaint Assessment: Hypovolemic shock suspected GI bleed on anticoagulation wth symptomatic anemia causing syncopal episode at care home when on bedside commode-EGD showed gastritis likely source of blood in stool Severe anemia requiring 1 unit of blood consulting surgery for GI bleed eval History of hypercapnic respiratory failure requiring BiPAP 12/2022 Lower extremity edema Chronic COPD Afib with RVR history status post cardioversion in the past Hypothyroidism Anxiety HTN Plan: ICU Cardiology consult General surgery consult Transfuse prn Proton pump inhibitor Hold anticoagulation Clinical Quality Measures DVT/VTE Risk/Contraindication: Contraindications-Pharm: Other *list below* Other: ELVA GREGORY DO Jan 31, 2023 06:25
[2023-01-31] MEDS: RT-Ipratropium/Albuterol NEB 3 ML VIAL INH SCH (08:35)
[2023-01-31] MEDS: PANTOPRAZOLE INJECTION 40 MG VIAL IV SCH ×2 (08:55→21:36)
[2023-01-31] MEDS ORDERED: LACTATED RINGERS 1,000 ML 1,000 ML IV STA (09:43)
[2023-01-31] MEDS ORDERED: HURRICAINE EXT TUBE (BENZOCAINE) XX PRN (09:45)
[2023-01-31] MEDS ORDERED: LIDOCAINE JELLY 2% 6 ML SYRINGE MM PRN (09:45)
[2023-01-31] MEDS: DOCUSATE SODIUM 100 MG CAPSULE PO SCH ×2 (09:49→21:00)
[2023-01-31] MEDS: SENNOSIDES 8.6 MG TABLET PO SCH ×2 (09:50→21:00)
[2023-01-31] MEDS ORDERED: LIDOCAINE JELLY 2% 6 ML SYRINGE ONE (10:08)
[2023-01-31] MEDS ORDERED: PHENYLEPHRINE 100 MCG/ML 10 ML (ANESTHESIA) SYR ONE (10:21)
[2023-01-31 10:55] VITALS: BP 137/64
--- NOTE | 2023-01-31 10:58 | Progress Note-Post Operative ---
Post-Operative Progess Note Surgeon (s)/Chemistry Specialist (s) Surgeon ERNA DICKSON MD Chemistry Specialist: none Pre-Operative Diagnosis syncope, anemia Post-Operative Diagnosis reflux esophagitis(grade C) with mild dist esoph stricture, small HH(2cm), moderate-severe gastritis. moderate sigmoid diverticulosis. Procedure & Operative Findings Date of Procedure 01/31/23 Procedure Performed/Findings EGD with bx. Colonoscopy. Anesthesia Type mac Estimated Blood Loss Estimated blood loss (mL): minimal Specimens/Packing Specimens Removed ge jxn, antrum ERNA DICKSON MD Jan 31, 2023 10:58
[2023-01-31 11:00] VITALS: BP 128/55
--- NOTE | 2023-01-31 11:06 | Anesthesia-General Post-Op ---
MAC Patient Condition Mental Status/LOC: Same as Preop Cardiovascular: Satisfactory Nausea/Vomiting: Absent Respiratory: Satisfactory Pain: Controlled Complications: Absent Post Op Complications Complications None Follow Up Care/Instructions Patient Instructions None needed. Anesthesiology Discharge Order Discharge Order Patient is doing well, no complaints, stable vital signs, no apparent adverse anesthesia problems. No complications reported per nursing. ANGÉLICA CAREY CRNA Jan 31, 2023 11:06
--- NOTE | 2023-01-31 14:37 | OPERATIVE REPORT ---
DATE OF SERVICE: 01/31/2023 ATTENDING PRIMARY CARE PHYSICIAN: Dr. Cony Poole. ADMITTING PHYSICIAN: Dr. Melina Benjamin. PREOPERATIVE DIAGNOSIS: Anemia with syncopal episode. POSTOPERATIVE DIAGNOSES: Reflux esophagitis, Hale grade C with a mild distal esophageal stricture, small hiatal hernia 2 cm in size, moderate to severe gastritis, no active bleed, moderate sigmoid diverticulosis. PROCEDURES: EGD with biopsy, colonoscopy. SURGEON: Erna Tracy MD. ANESTHESIA: Monitored anesthesia care. ESTIMATED BLOOD LOSS: Minimal. FINDINGS: Reflux esophagitis, Hale grade C with a mild distal esophageal stricture, small hiatal hernia 2 cm in size, moderate to severe gastritis, no active bleed, moderate sigmoid diverticulosis. DISPOSITION: The patient tolerated the procedure well. INDICATIONS: The patient is an 83-year-old female brought to the emergency department from [facility] due to obtundation and low oxygen saturations. She states that she had gotten up to go to the bathroom, felt weak, dizzy and did lose consciousness. The patient was evaluated in the emergency department and found to be hypotensive with a systolic blood pressure in the 80s. Since the incident, she has been awake and alert and does answer questions appropriate. The patient was found to be anemic with a hemoglobin of 7.6. She does not recall any red blood per rectum, nor any dark tarry stools. She does have a history of atrial fibrillation and is anticoagulated with Xarelto 15 mg daily as well as aspirin 81 mg daily as well. She does report a mild reflux as well as acid indigestion; however, not severe. DESCRIPTION OF PROCEDURE: The patient was brought to the endoscopy suite and laid in the left lateral decubitus position. After adequate IV pain and sedative medications and monitored anesthesia care, the mouthpiece was applied. The endoscope was placed in the mouth, visualizing the pharynx and hypopharyngeal region. Vocal cords, epiglottis and vallecula identified and appeared to be normal. The endoscope was then gently intubated in the esophageal opening and esophagus insufflated. The endoscope was then advanced through the first, second, and third portions of the esophagus at the level of the GE junction, reflux esophagitis, Hale grade C identified with a mild distal esophageal stricture and Schatzki's ring. A biopsy was taken with forceps with visualization of good hemostasis. The endoscope was then advanced into the stomach and endoscope retroflexed, visualizing a small hiatal hernia approximately 2 cm in size. There was a diffuse moderate to severe gastritis noted. There were no formal ulcerations, polyps or any neoplasms as well as no active bleeding. A biopsy was taken of the antrum to rule out H. pylori with visualization of good hemostasis. The endoscope was then advanced through the pylorus into the first and second portion of the duodenum, which appeared normal with no bleeding sources. The endoscope was then slowly withdrawn while taking a second look and suctioning of residual air with no additional findings. A digital rectal examination was performed. No significant hemorrhoids identified. Normal sphincter tone was felt and there were no palpable masses. The endoscope was then intubated into the anus, rectum gently insufflated. The endoscope was then advanced through the valves of Tejeda of the rectum with no polyps or any neoplasms identified. Through the sigmoid colon, a moderate sigmoid diverticulosis identified. There were no mucosal inflammatory changes to indicate any active diverticulitis. The endoscope was then advanced through the remainder of the descending, transverse and ascending colon to the cecum, which were normal. There were no polyps or any neoplasms as well as no mucosal inflammatory changes or any bleeding sources identified. The endoscope was then slowly withdrawn while taking a second look and suctioning of residual air with no additional findings. The patient tolerated the procedure well. We will recommend the necessary lifestyle and dietary accommodation including small and more frequent meals, avoidance of eating at night as well as head elevation while lying supine. She also needs to avoid caffeinated beverages, spicy, greasy and acidic foods. 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 For her diverticulosis, we will recommend a high-fiber diet with addition of a fiber supplement, which are equal or exceed 25 grams daily as well as significant amounts of water to promote soft consistency stools on a daily basis and prevent any further propagation of diverticulosis as well as complications related to diverticulosis and diverticulitis. Job ID: [id number] DocumentID: [id number] Dictated Date: 01/31/2023 11:05:13 Store Consultant Date: 01/31/2023 14:35:00 Dictated By: ERNA TRACY MD
--- NOTE | 2023-01-31 17:36 | Cardiology Progress Note ---
Cardiology SOAP Progress Note Subjective: No cardiac complaints. Objective: I&O/Vital Signs 01/31/23 01/31/23 01/31/23 01/31/23 06:00 07:00 07:00 08:00 Pulse 70 63 63 65 Resp 18 13 15 B/P (MAP) 147/101 (116) 150/59 (93) Pulse Ox 95 97 96 O2 Delivery Nasal Cannula Nasal Cannula Nasal Cannula O2 Flow Rate 1.00 1.00 1.00 01/31/23 01/31/23 01/31/23 01/31/23 08:00 08:00 08:35 09:00 Temp 36.6 Pulse 71 Resp 13 B/P (MAP) 174/70 (112) Pulse Ox 94 98 98 O2 Delivery Nasal Cannula Nasal Cannula Nasal Cannula O2 Flow Rate 2.00 2.00 1.00 01/31/23 01/31/23 01/31/23 01/31/23 10:55 11:00 12:00 12:00 Temp 36.3 Pulse 78 76 66 Resp 16 16 12 B/P (MAP) 166/72 (110) Pulse Ox 98 98 95 O2 Delivery OxyMask OxyMask Nasal Cannula O2 Flow Rate 2.00 2.00 1.00 01/31/23 01/31/23 01/31/23 01/31/23 12:00 12:31 13:00 14:00 Pulse 68 76 71 Resp 11 12 B/P (MAP) 142/99 (116) 152/72 (109) Pulse Ox 94 93 93 O2 Delivery Nasal Cannula Nasal Cannula Nasal Cannula O2 Flow Rate 2.00 1.00 1.00 01/31/23 01/31/23 01/31/23 01/31/23 15:00 16:00 16:00 17:00 Pulse 63 64 63 Resp 13 25 17 B/P (MAP) 143/67 (101) 142/62 (88) 154/61 (92) Pulse Ox 100 94 98 99 O2 Delivery Nasal Cannula Nasal Cannula Nasal Cannula Nasal Cannula O2 Flow Rate 1.00 2.00 1.00 1.00 01/31/23 00:00 Intake Total 1550 ml Balance 1550 ml Weight (Pounds): 157 Weight (Ounces): 0.9 Weight (Calculated Kilograms): 71.349371 Constitutional: AAO x 3 Respiratory: lungs clear to auscultation Cardiovascular: regular rate-rhythm Neurologic/Psychiatric: alert, normal mood/affect, oriented x 3 Results/Procedures: Labs Laboratory Tests 01/30/23 19:05: Stool Occult Blood Immunoassay POSITIVEH 01/30/23 20:17: Sodium Level 136, Potassium Level 4.3, Chloride Level 102, Carbon Dioxide Level 25, Anion Gap 9, Blood Urea Nitrogen 17, Creatinine 0.84, Estimat Glomerular Filtration Rate 69, BUN/Creatinine Ratio 20, Glucose Level 94, Calcium Level 7.9L 01/31/23 03:39: Sodium Level 139, Potassium Level 3.6, Chloride Level 102, Carbon Dioxide Level 29, Anion Gap 8, Blood Urea Nitrogen 12, Creatinine 0.79, Estimat Glomerular Filtration Rate 74, BUN/Creatinine Ratio 15, Glucose Level 91, Calcium Level 7.7L, White Blood Count 11.6H, Red Blood Count 3.03L, Hemoglobin 8.8L, Hematocrit 27L, Mean Corpuscular Volume 89, Mean Corpuscular Hemoglobin 29, Mean Corpuscular Hemoglobin Concent 33, Red Cell Distribution Width 16.4H, Platelet Count 307, Mean Platelet Volume 8.9L, Immature Granulocyte % (Auto) 1, Neutrophils (%) (Auto) 87H, Lymphocytes (%) (Auto) 5L, Monocytes (%) (Auto) 4, Eosinophils (%) (Auto) 3, Basophils (%) (Auto) 1, Neutrophils # (Auto) 10.1H, Lymphocytes # (Auto) 0.5L, Monocytes # (Auto) 0.5, Eosinophils # (Auto) 0.3, Basophils # (Auto) 0.1, Immature Granulocyte # (Auto) 0.1, Corrected Calcium 8.8, Phosphorus Level 2.0L, Magnesium Level 2.7H, Total Bilirubin 0.8, Aspartate Amino Transf (AST/SGOT) 21, Alanine Aminotransferase (ALT/SGPT) 25, Alkaline Phosphatase 57, Total Protein 5.2L, Albumin 2.6L Microbiology 01/29/23 MRSA Screen - Final, Complete MRSA not isolated A/P: Assessment/Dx: Severe anemia, syncope. Awaiting upper and lower endoscopy with Dr. DICKSON. Hold oral anticoagulation. Acute on chronic diastolic CHF - MPI of 09-22-2022 showed no evidence of ischemia or infarction. No regional wall motion abnormality. MPI 56% - clinically improving ; shortness of breath significantly improved ?Pneumonia - management per medical services SSS and PAF - S/P ILR implant 03-01-[address] Garnica - OAC with Xarelto -hold due to severe anemia and possible bleeding. - EP consult with Dr. Miller who has advised continued medical management, recommended starting Flecainide or Amiodarone per last note in Jul 2022. - ECG on 10-14-22: NSR with LBBB and PACs - Recurrent A Fib for which she underwent cardioversion on 11/16/[address] Green - was started on Flecainide 100mg BID - a-fib with RVR on EKG of 12-10-22. Flecainide d/c'd, amiodarone initiated on 12-11-22 - ext elec CV to sinus rhythm on 12-14-22 Hypothyroidism,treated with thyroid replacement therapy. Managed by PCP Hypertension, stable Carotid art disease, history of s/p R CEA by Dr Adams on 05/26/[place] Mild bilat dz per u/s of 09-10-2021 Mitral regurg and mild pulm htn - Echocardiogram of 12-04-[address] Garnica showed LVEF 55-65%. LA mildly dilated. Mod to severe MR. PASP 40-45 mmHg - Echocardiogram of 09-02-20 showed LVEF 55-60%. Grade 1 diastolic dysfunction. Mild MR. AoV sclerosis with mild regurg. PASP 40-45 mmHg - sleep studies by Dr. Brown on 02-14-21 did not indicate sleep apnea - a-fib seen during the test - Echo of 12-11-22: LVEF 55-60%, mod to sev enlargement of LA, mild enlargement of RA, mild to mod MR, triv AI, L pleural eff, PASP 45-50 mmHg COPD with nocturnal hypoxemia Quit smoking when she was in her 40's Chronic, bilateral leg swelling, likely related to venous insuff Chronic scoliosis and degenerative cervical spinal disease (chronically stiff neck and shoulders) Plan: Upper and lower GI endoscopy with Dr. DICKSON. Restart oral anticoagulation if okay with general surgery, especially if there is no active bleeding or in their opinion there is no active bleeding. Ban GARNICA MD Jan 31, 2023 17:36
[2023-01-31 18:40] VITALS: BP 157/60
[2023-02-01] MEDS: NOREPINEPHRINE 8 MG/250 ML 250 ML IV SCH ×2 (00:24→20:52)
[2023-02-01 04:42] LABS: BASOPHILS # (AUTO) 0.1 10^3/uL (0.0-0.1); BASOPHILS % (AUTO) 1 % (0-10); EOSINOPHILS # (AUTO) 0.4 10^3/uL (0.0-0.3); EOSINOPHILS % (AUTO) 2 % (0-10); HEMATOCRIT 30 % (35-52); HEMOGLOBIN 9.6 g/dL (11.5-16.0); LYMPHOCYTES # (AUTO) 0.7 10^3/uL (1.0-4.0); LYMPHOCYTES % (AUTO) 4 % (12-44); MEAN CORPUSCULAR HEMOGLOBIN 29 pg (25-34); MEAN CORPUSCULAR HGB CONC 32 g/dL (32-36); MEAN CORPUSCULAR VOLUME 91 fL (80-99); MEAN PLATELET VOLUME 8.4 fL (9.0-12.2); MONOCYTES # (AUTO) 0.7 10^3/uL (0.0-1.0); MONOCYTES % (AUTO) 4 % (0-12); NEUTROPHILS # (AUTO) 14.5 10^3/uL (1.8-7.8); NEUTROPHILS % (AUTO) 88 % (42-75); PLATELET COUNT 312 10^3/uL (130-400); WHITE BLOOD COUNT 16.4 10^3/uL (4.3-11.0)
[2023-02-01 04:56] LABS: ALBUMIN 2.6 GM/DL (3.2-4.5); POTASSIUM 3.3 MMOL/L (3.6-5.0)
[2023-02-01 04:57] LABS: CALCIUM 8.2 MG/DL (8.5-10.1)
[2023-02-01 04:58] LABS: TOTAL PROTEIN 5.3 GM/DL (6.4-8.2)
[2023-02-01 05:00] LABS: BILIRUBIN,TOTAL 0.7 MG/DL (0.1-1.0)
[2023-02-01 05:01] LABS: PHOSPHORUS 2.4 MG/DL (2.3-4.7)
[2023-02-01 05:02] LABS: CREATININE SERUM 0.83 MG/DL (0.60-1.30)
[2023-02-01 05:05] LABS: MAGNESIUM 2.4 MG/DL (1.6-2.4)
[2023-02-01] MEDS: POTASSIUM CHLORIDE 20 MEQ TABLET PO SCH (05:20)
[2023-02-01] MEDS: POTASSIUM CL 10MEQ/50ML IVPB 50 ML IV SCH (05:20)
[2023-02-01] MEDS: MAGNESIUM 1 GM/100 ML IVPB 100 ML IV SCH (05:20)
[2023-02-01] MEDS: POTASSIUM BICARB 20 MEQ effervescent TABLET PO SCH ×3 (06:21→13:26)
[2023-02-01] MEDS: PANTOPRAZOLE INJECTION 40 MG VIAL IV SCH ×2 (08:10→21:20)
[2023-02-01] MEDS: IRON SUCROSE 200 MG/10 ML VIAL IV SCH (08:10)
--- NOTE | 2023-02-01 08:31 | Cardiology Progress Note ---
Subjective Date Seen by Provider: Feb 01, 2023 Time Seen by Provider: 08:28 Subjective/Events-last exam Patient was seen at bedside, laying down comfortably, feeling better Hypoxemic Review of Systems General: No Chills, No Night Sweats; Fatigue; No Malaise, No Appetite, No Other HEENT: No Head Aches, No Visual Changes, No Eye Pain, No Ear Pain, No Dysphasia, No Sinus Congestion, No Post Nasal Drip, No Sore Throat, No Other Pulmonary: Dyspnea; No Cough, No Pleuritic Chest Pain, No Other Cardiovascular: No: Chest Pain, Palpitations, Orthopnea, Paroxysmal Noc. Dyspnea, Edema, Lt Headedness, Other Objective-Cardiology Exam Last Set of Vital Signs Vital Signs 01/29/23 02/01/23 02/01/23 02/01/23 16:00 06:00 07:01 07:33 Temp 36.7 Pulse 70 Resp 13 B/P (MAP) 147/68 (94) Pulse Ox 95 O2 Delivery Nasal Cannula O2 Flow Rate 5.00 FiO2 21 I&O Intake and Output 02/01/23 00:00 Intake Total 4440 ml Output Total 1400 ml Balance 3040 ml Intake Oral 490 ml IV Total 3950 ml Output Urine Total 1400 ml # Voids 6 # Bowel Movements 6 General: Alert, Oriented X3, Cooperative, No Acute Distress HEENT: Atraumatic, PERRLA Neck: Supple Lungs: Clear to Auscultation, Normal Air Movement Heart: Regular Rate, Normal S1, Normal S2, No Murmurs Abdomen: Normal Bowel Sounds Extremities: No Clubbing, No Cyanosis Skin: No Rashes, No Breakdown Neuro: Normal Speech Psych/Mental Status: Mental Status NL, Mood NL Results Lab Laboratory Tests 02/01/23 04:35 A/P-Cardiology Admission Diagnosis Anemia Syncope Paroxysmal atrial fibrillation Hypertension Assessment/Plan Severe anemia, syncope. Status post EGD and colonoscopy done by Dr. Tracy Continue to monitor H&H GI bleed Status post miller endoscopy showing severe gastritis, hiatal hernia and esophageal stricture and sigmoid diverticulosis. No active bleeding was reported during scope Currently oral anticoagulation on hold. Continue to monitor Acute on chronic diastolic CHF - MPI of 09-22-2022 showed no evidence of ischemia or infarction. No regional wall motion abnormality. MPI 56% - clinically improving ; shortness of breath significantly improved Possible pneumonia, chest x-ray ordered. Requiring higher dose of oxygen. - management per medical services SSS and PAF - S/P ILR implant 03-01-[address] Garnica - OAC with Xarelto -hold due to severe anemia and possible bleeding. - EP consult with Dr. Miller who has advised continued medical management, recommended starting Flecainide or Amiodarone per last note in Jul 2022. - ECG on 10-14-22: NSR with LBBB and PACs - Recurrent A Fib for which she underwent cardioversion on 11/16/[address] Green - was started on Flecainide 100mg BID - a-fib with RVR on EKG of 12-10-22. Flecainide d/c'd, amiodarone initiated on 12-11-22 - ext elec CV to sinus rhythm on 12-14-22 Hypothyroidism,treated with thyroid replacement therapy. Managed by PCP Hypertension, stable Carotid art disease, history of s/p R CEA by Dr Adams on 05/26/21 at [place], [place] Mild bilat dz per u/s of 09-10-2021 Mitral regurg and mild pulm htn - Echocardiogram of 12-04-[address] Garnica showed LVEF 55-65%. LA mildly dilated. Mod to severe MR. PASP 40-45 mmHg - Echocardiogram of 09-02-20 showed LVEF 55-60%. Grade 1 diastolic dysfunction. M ild MR. AoV sclerosis with mild regurg. PASP 40-45 mmHg - sleep studies by Dr. Brown on 02-14-21 did not indicate sleep apnea - a-fib seen during the test - Echo of 12-11-22: LVEF 55-60%, mod to sev enlargement of LA, mild enlargement of RA, mild to mod MR, triv AI, L pleural eff, PASP 45-50 mmHg COPD with nocturnal hypoxemia Quit smoking when she was in her 40's Chronic, bilateral leg swelling, likely related to venous insuff Chronic scoliosis and degenerative cervical spinal disease (chronically stiff neck and shoulders) RITO GREEN MD Feb 01, 2023 08:31
[2023-02-01] MEDS: ACETAMINOPHEN 325 MG TABLET PO PRN ×3 (08:32→17:53)
[2023-02-01] MEDS: SENNOSIDES 8.6 MG TABLET PO SCH ×2 (08:39→21:20)
[2023-02-01] MEDS: DOCUSATE SODIUM 100 MG CAPSULE PO SCH ×2 (08:39→21:20)
--- NOTE | 2023-02-01 08:54 | Diagnostic Imaging Report ---
INDICATION: Respiratory distress. TECHNIQUE/COMPARISON: A frontal chest was obtained at 5:34 AM and compared to 01/30/2023. FINDINGS: There is cardiomegaly. There is worsening infiltrate throughout the right lung with unchanged infiltrate in the left perihilar region. There is no pneumothorax. There is some minimal right pleural fluid versus thickening. IMPRESSION: Cardiomegaly. Worsening infiltrate throughout the right lung with minimal right pleural fluid versus thickening. No pneumothorax. Mild left perihilar infiltrate, unchanged. Dictated by: Dictated on workstation # [id number]
[2023-02-01] MEDS ORDERED: FUROSEMIDE INJECTION 40 MG/4 ML VIAL IVP NR (09:30)
[2023-02-01] MEDS: CEFEPIME INJECTION 1,000 MG in NS (IVPB) 50 ML 50 ML IV SCH ×2 (09:45→17:32)
[2023-02-01] MEDS: AZITHROMYCIN INJECTION 500 MG in NS (IVPB) 250 ML 250 ML IV SCH (09:46)
--- NOTE | 2023-02-01 10:27 | Progress Note ---
VIOLA REESE 02/01/23 1027: Subjective Date Seen by a Provider: Feb 01, 2023 Time Seen by a Provider: 07:45 Subjective/Events-last exam This is a 83-year-old female who presented with dizziness, near syncope, and found to have anemia with acute blood loss. EGD found gastritis which is believed to be source of bleed. On patient visit, she reports feeling weak and is having back pain from laying down for so long. Reported no pain, fever, chills, nausea or vomiting. Has not been able to ambulate at all. Thinks her last BM was during her colonoscopy yesterday. She couldn't comment on having any dizziness as she hasn't been able to get out of bed. CXR shows possible pneumonia. Review of Systems General: No Chills, No Night Sweats; Fatigue, Malaise; No Appetite, No Other HEENT: No Head Aches, No Visual Changes, No Eye Pain, No Ear Pain, No Dysphasia, No Sinus Congestion, No Post Nasal Drip, No Sore Throat, No Other Pulmonary: No Dyspnea, No Cough, No Pleuritic Chest Pain, No Other Cardiovascular: No: Chest Pain, Palpitations, Orthopnea, Paroxysmal Noc. Dyspnea, Edema, Lt Headedness, Other Gastrointestinal: No: Nausea, Vomiting, Abdominal Pain, Diarrhea, Constipation, Melena, Hematochezia, Other Genitourinary: No Dysuria, No Frequency, No Incontinence, No Hematuria, No Retention, No Other Musculoskeletal: back pain; No: other, neck pain, shoulder pain, arm pain, hand pain, leg pain, foot pain Neurological: No: Weakness, Numbness, Incoordination, Change in speech, Confusion, Seizures, Other Objective Exam Last Set of Vital Signs Vital Signs Date Time Temp Pulse Resp B/P (MAP) Pulse Ox O2 Delivery O2 Flow Rate FiO2 02/01/23 10:00 69 33 94 Nasal Cannula 5.00 02/01/23 07:33 36.7 01/29/23 16:00 21 Capillary Refill : Less Than 3 Seconds I&O Intake and Output 02/01/23 00:00 Intake Total 4440 ml Output Total 1400 ml Balance 3040 ml Intake Oral 490 ml IV Total 3950 ml Output Urine Total 1400 ml # Voids 6 # Bowel Movements 6 General: Alert, Oriented X3, Cooperative, Mild Distress HEENT: Atraumatic, PERRLA, EOMI, Mucous Memb Moist/[place] Lungs: Clear to Auscultation, Normal Air Movement Heart: Regular Rate, Normal S1, Normal S2, No Murmurs Extremities: No Clubbing, No Cyanosis Neuro: Normal Speech Psych/Mental Status: Mental Status NL, Mood NL Results Lab Laboratory Tests 02/01/23 04:35: White Blood Count 16.4H, Red Blood Count 3.28L, Hemoglobin 9.6L, Hematocrit 30L, Mean Corpuscular Volume 91, Mean Corpuscular Hemoglobin 29, Mean Corpuscular Hemoglobin Concent 32, Red Cell Distribution Width 16.6H, Platelet Count 312, Mean Platelet Volume 8.4L, Immature Granulocyte % (Auto) 1, Neutrophils (%) (Auto) 88H, Lymphocytes (%) (Auto) 4L, Monocytes (%) (Auto) 4, Eosinophils (%) (Auto) 2, Basophils (%) (Auto) 1, Neutrophils # (Auto) 14.5H, Lymphocytes # (Auto) 0.7L, Monocytes # (Auto) 0.7, Eosinophils # (Auto) 0.4H, Basophils # (Auto) 0.1, Immature Granulocyte # (Auto) 0.2H, Sodium Level 136, Potassium Level 3.3L, Chloride Level 101, Carbon Dioxide Level 28, Anion Gap 7, Blood Urea Nitrogen 9, Creatinine 0.83, Estimat Glomerular Filtration Rate 70, BUN/Creatinine Ratio 11, Glucose Level 99, Calcium Level 8.2L, Corrected Calcium 9.3, Phosphorus Level 2.4, Magnesium Level 2.4, Total Bilirubin 0.7, Aspartate Amino Transf (AST/SGOT) 22, Alanine Aminotransferase (ALT/SGPT) 23, Alkaline Phosphatase 62, Total Protein 5.3L, Albumin 2.6L Microbiology 01/29/23 MRSA Screen - Final, Complete MRSA not isolated Assessment/Plan Assessment/Plan Assess & Plan/Chief Complaint Assessment: Hypovolemic shock & suspected GI bleed on anticoagulant Worsening chest infiltrate on CXR, possible pneumonia Symptomatic anemia causing syncope Severe anemia requiring 1 PRBC Hx of hypercapnic respiratory failure requiring BiPAP Chronic lower extremity edema COPD Afib w/ RVR hx status post cardioconversion Hypothyroidism Anxiety HTN Plan: Blood culture Cefepime & azithromycin Hold anticoagulant Surgery consult Monitor in ICU Clinical Quality Measures DVT/VTE Risk/Contraindication: Contraindications-Pharm: Other *list below* Other: MELINA GREGORY DO 02/01/23 2009: Subjective Subjective/Events-last exam Patient doing a little better New pneumonia on chest x-ray We will initiate IV antibiotics Objective Exam General: Alert, Oriented X3, Cooperative, No Acute Distress, Other (Chronically ill) Heart: Regular Rate Psych/Mental Status: Mental Status NL Assessment/Plan Assessment/Plan Assess & Plan/Chief Complaint Facility acquired pneumonia placed on IV antibiotics Monitor hemoglobin Monitor respiratory status Supervisory-Addendum Brief Verification & Attestation Participated in pt care: history, MDM, physical Personally performed: exam, history, MDM, supervision of care Care discussed with: Medical Student Procedures: n/a Results interpretation: Verified all documentation Verification and Attestation of Medical Student E/M Service A medical student performed and documented this service in my presence. I reviewed and verified all information documented by the medical student and made modifications to such information, when appropriate. I personally performed the physical exam and medical decision making. Melina Benjamin Feb 01, 2023,20:08 VIOLA REESE Feb 01, 2023 10:27 MELINA BENJAMIN DO Feb 01, 2023 20:09
--- NOTE | 2023-02-01 10:40 | Tele-ICU Progress Note ---
Subjective Date Seen by a Provider: Feb 01, 2023 Time Seen by a Provider: 10:40 Subjective/Events-last exam (Tele-ICU Physician , Progress Note ) Service provided via interactive audio and video telecommunications E-CARE system to a patient admitted to ICU bed in [facility]. Patient is seen today due to persistent need of ICU care Available chart/ vitals / labs / Images reviewed Video assessment done using teleICU camera, rest of exam as per RN Discussed with RN Events overnight : Afebrile hemodynamically stable Respiratory - 1L I/O = Drips: ns 70 Pressors- no Hospital course: (01/29) 83F Admitted from [place] for syncope, recent COVID infection 10 days ago-CXR NEG now. Anemia (on xarelto), KYA. COPD hx. Plan EGD/colonoscopy this admit A/P Syncope - presume due to anemia- monitor - CTH - neg Anemia - Hb 7.6 - > s/p 1 u PRBC 01/29 --> hb 8.3 - PPI bid iv - EGD + -colonoscoy 01/31 in plans RUL PNA . R effusion tiny - reported on cxr 01/30 - WORSENING TODAY - as per patiemnt minimal cough - not new , BUT WBC INCREASING - started abx 02/01 - to cont KAY - resolved with resuscitation PAF - chronic , s/p ILR , s/p cardioversions 12/14 -OAC with Xarelto COPD ( nocturnal hypoxemia, PSG - neg for CONSTANZA 2020 -moderately advanced emphysematous changes on CT 2019 Mild pulmonary hypertension,-PASP 40-45 mmHg replace lytes Lines : periph , (Central Line Necessity Reviewed) Ham: void OG: Nutrition: po Analgesia: Anxiety/ delirium VTE Prophylaxis: scd , xarelto on gold for amnemia Stress Ulcer Prophylaxis: ppi Plans in collaboration with bedside consultants and IM MDs. Discussed with RN to reach out if any questions or concerns Case and care daily discussed on multidisciplinary rounds ( RN, PharmD, Court Advocate , Respiratory Therapy, acid conditioning worker ) A total of 15 minutes of critical care time was devoted to this patient today, required to treat and/or prevent further deterioration of critical care condition ( as above ) . I am remotely monitoring this patient from another state. I am unable to do the bedside exam, and history/physical and pertinent information is taken from other notes in the computer and bedside staff. Sepsis Event Evaluation Height, Weight, BMI Height: 5'3.50" Weight: 157lbs. 0.9oz. [id number]; 22.61 BMI Method: Exam Exam Patient acknowledged, consented, and participated in this virtual visit which was conducted using real time audio/video Vital Signs Date Time Temp Pulse Resp B/P (MAP) Pulse Ox O2 Delivery O2 Flow Rate FiO2 02/01/23 10:00 69 33 94 Nasal Cannula 5.00 02/01/23 09:00 75 16 124/52 (76) 90 Nasal Cannula 5.00 02/01/23 08:00 77 16 146/68 (94) 92 Nasal Cannula 5.00 02/01/23 07:45 92 Nasal Cannula 4.00 02/01/23 07:33 36.7 02/01/23 07:01 70 02/01/23 07:00 70 14 152/62 (92) 100 Nasal Cannula 5.00 02/01/23 06:00 72 13 147/68 (94) 95 Nasal Cannula 5.00 02/01/23 05:00 75 13 155/63 (93) 96 Nasal Cannula 5.00 02/01/23 04:00 93 Nasal Cannula 4.00 02/01/23 04:00 75 16 136/62 (86) 93 Nasal Cannula 5.00 02/01/23 03:00 98 29 157/71 (99) 91 Nasal Cannula 5.00 02/01/23 02:00 80 12 150/66 (94) 98 Nasal Cannula 4.00 02/01/23 01:01 80 02/01/23 01:00 79 28 146/60 (88) 97 Nasal Cannula 4.00 02/01/23 00:00 82 33 171/69 (103) 92 Nasal Cannula 4.00 01/31/23 23:59 94 Nasal Cannula 4.00 01/31/23 23:00 77 17 150/91 (110) 95 Nasal Cannula 1.00 01/31/23 22:00 76 33 151/68 (95) 89 Nasal Cannula 1.00 01/31/23 21:00 75 16 161/71 (101) 91 Nasal Cannula 1.00 01/31/23 20:20 67 14 157/66 (96) 99 Nasal Cannula 1.00 01/31/23 20:00 69 13 170/71 (104) 96 Nasal Cannula 1.00 01/31/23 20:00 93 Nasal Cannula 4.00 01/31/23 19:08 65 01/31/23 19:00 66 13 165/68 (100) 97 Nasal Cannula 1.00 01/31/23 18:54 98 Nasal Cannula 2.00 01/31/23 18:40 67 99 01/31/23 18:00 67 14 157/66 (96) 99 Nasal Cannula 1.00 01/31/23 17:00 63 17 154/61 (92) 99 Nasal Cannula 1.00 01/31/23 16:00 64 25 142/62 (88) 98 Nasal Cannula 1.00 01/31/23 16:00 94 Nasal Cannula 2.00 01/31/23 15:00 63 13 143/67 (101) 100 Nasal Cannula 1.00 01/31/23 14:00 71 12 152/72 (109) 93 Nasal Cannula 1.00 01/31/23 13:00 76 11 142/99 (116) 93 Nasal Cannula 1.00 01/31/23 12:31 68 01/31/23 12:00 94 Nasal Cannula 2.00 01/31/23 12:00 36.3 01/31/23 12:00 66 12 166/72 (110) 95 Nasal Cannula 1.00 01/31/23 11:00 76 16 98 OxyMask 2.00 01/31/23 10:55 78 16 98 OxyMask 2.00 I & O 02/01/23 07:00 Intake Total 2490 ml Output Total 1500 ml Balance 990 ml Height & Weight Height: 5'3.50" Weight: 157lbs. 0.9oz. [id number]; 22.61 BMI Method: General Appearance: No Apparent Distress, WD/WN HEENT: PERRL/EOMI Neck: Normal Inspection, Supple Respiratory: No Accessory Muscle Use, No Respiratory Distress Cardiovascular: Regular Rate, Rhythm, No Murmur Capillary Refill: Less Than 3 Seconds Gastrointestinal: normal bowel sounds, non tender, soft Extremity: Normal Inspection, Normal Range of Motion Neurologic/Psychiatric: Alert, Oriented x3 Skin: Normal Color, Warm/Dry Results Lab Laboratory Tests 01/30/23 20:17 01/31/23 03:39 02/01/23 04:35 Assessment/Plan Assessment/Plan 1 TOMA CORREIA MD Feb 01, 2023 10:40
[2023-02-01] MEDS ORDERED: DOCU-143 PO (10:58)
[2023-02-01] MEDS ORDERED: AMIO400T5 PO (10:58)
[2023-02-01] MEDS ORDERED: PRD20T PO (10:58)
[2023-02-01] MEDS ORDERED: BIFI10.52 PO (10:58)
[2023-02-01] MEDS ORDERED: IPRA3AMP31 IH (10:58)
[2023-02-01] MEDS ORDERED: BETH25TA2 PO (10:58)
[2023-02-01] MEDS ORDERED: POTA-169 PO (10:58)
--- NOTE | 2023-02-01 13:53 | Physical Therapy Evaluation ---
PT Evaluation-General Medical Diagnosis Admission Date Jan 29, 2023 at 14:10 Medical Diagnosis: Syncope Onset Date: Jan 29, 2023 Therapy Diagnosis Therapy Diagnosis: Gait deficit, strength deficit Height/Weight Height (Feet): 5 Height (Inches): 3.50 Weight (Pounds): 157 Weight (Ounces): 0.9 Precautions Precautions/Isolations: Fall Prevention Weight Bear Status Right Lower Extremity: Right Weight Bearing/Tolerated Left Lower Extremity: Left Weight Bearing/Tolerated Referral Physician: Dr. Benjamin Reason for Referral: Evaluation/Treatment Medical History Pertinent Medical History: Atrial Fib, COPD, Heart Failure, HTN, Hypothroidism Reviewed History: Yes Social History Home: Single Level Current Living Status: Alone Entry Into Home: Stairs With Railing PT Steps Into Home: 4 Prior Prior Level of Function SCALE: Activities may be completed with or without assistive devices. 7-Zutwqpajnz-xonalaf completes the activity by him/herself with no assistance from a helper. 5-Set-up or Clean-up Assistance-helper sets up or cleans up; patient completes activity. Benld assists only prior to or following the activity. 4-Supervision or Touching Assistance-helper provides verbal cues and/or touching/steadying and/or contact guard assistance as patient completes activity. Assistance may be provided throughout the activity or intermittently. 3-Partial/Moderate Assistance-helper does LESS THAN HALF the effort. Benld lifts, holds or supports trunk or limbs, but provides less than half the effort. 2-Substantial/Maximal Assistance-helper does MORE THAN HALF the effort. Benld lifts or holds trunk or limbs and provides more than half the effort. 5-Ehhrnpmyv-mwlfba does ALL the effort. Patient does none of the effort to complete the activity. Or, the assistance of 2 or more helpers is required for the patient to complete the activity. If activity was not attempted, code reason: 7-Patient Refused. 9-Not Applicable-not attempted and the patient did not perform the activity before the current illness, exacerbation or injury. 10-Not Attempted due to Environmental Limitations-(lack of equipment, weather restraints, etc.). 88-Not Attempted due to Medical Conditions or Safety Concerns. Bed Mobility: 6 Transfers (B,C,W/C): 6 Gait: 6 Stairs: 6 Indoor Mobility (Ambulation): Independent Stairs: Independent Prior Devices Use: Walker PT Evaluation-Current Subjective Patient lying supine in bed upon PT arrival, agreeable to treatment. Patient rates pain currently at 0/10. Patient very fatigued from being up in the chair this am per her report and has difficulty staying awake. Objective Patient Orientation: Person, Place, Time, Situation Attachments: Oxygen, Ham Catheter, IV ROM/Strength ROM Lower Extremities WFLs BLEs all planes Strength Lower Extremities 3/5 BLEs all planes Sensory Vision: Wears Glasses Hearing: Impaired Sensation Right Lower Extremit: Intact Sensation Left Lower Extremity: Intact Transfers Roll Left to Right (QC): 2 Sit to Lying (QC): 2 Lying to Sitting/Side of Bed(Q: 2 Sit to Stand (QC): 2 Gait Does the Patient Walk?: No and Walking Goal IS indicated Mode of Locomotion: Walk Anticipated Mode of Locomotion: Walk Gait Assistive Device: FWW Balance Sitting Static: Fair Sitting Dynamic: Poor Standing Static: Poor Standing Dynamic: Poor Assessment/Needs Patient tolerated treatment poorly, but admits she is fatigued from activity this morning. Patient requires max A for all observed bed mobility and transfers. Patient performs sit to stand with max A, with FWW. Upon standing patient began to have a BM. Patient was unable to stop and placed backed in bed with call light activated. Patient again performed sit to stand with max A and Total A from Nurse for cleaning. Patient in bed post treatment with all needs met, nurse in the room and call light in reach. Rehab Potential: Fair PT [place] [facility]als [facility] Goals PT [facility]itentiary Goals Time Frame: Mar 06, 2023 Roll Left & Right (QC): 5 Sit to Lying (QC): 5 Lying-Sitting on Side/Bed(QC): 5 Sit to Stand (QC): 4 Chair/[id number]-xb-Vhuhv Xfer(QC): 4 Toilet Transfer (QC): 4 Car Transfer (QC): 4 Does the Patient Walk: Yes Walk 10 feet (QC): 4 Walk 50ft with 2 Turns (QC): 4 Walk 150 ft (QC): 4 1 Step (curb) (QC): 3 4 Steps (QC): 3 PT Plan Problem List Problem List: Activity Tolerance, Functional Strength, Safety, Balance, Gait, Bed Mobility, ROM Treatment/Plan Treatment Plan: Continue Plan of Care Treatment Plan: Bed Mobility, Education, Functional Activity Samy, Functional Strength, Group Therapy, Gait, Safety, Therapeutic Exercise, Transfers Treatment Duration: Mar 06, 2023 Frequency: 6 times per week Estimated Hrs Per Day: .25 hour per day Safety Risks/Education Patient Education: Gait Training, Transfer Techniques Teaching Recipient: Patient Teaching Methods: Demonstration, Discussion Response to Teaching: Reinforcement Needed Time Time In: 1321 Time Out: 1345 DATE: Feb 01, 2023 Total Billed Treatment Time: 24 Total Billed Treatment Visit, EYHUDA JENKINS JOHN A PT Feb 01, 2023 13:53
--- NOTE | 2023-02-01 15:05 | Occupational Therapy Eval ---
OT Evaluation-General/PLF Medical Diagnosis Admission Date Jan 29, 2023 at 14:10 Medical Diagnosis: Syncope Onset Date: Jan 29, 2023 Therapy Diagnosis Therapy Diagnosis: weakness Height/Weight Height (Feet): 5 Height (Inches): 3.50 Weight (Pounds): 157 Weight (Ounces): 0.9 Precautions Precautions/Isolations: Fall Prevention Referral Physician: Dr. Benjamin Referral Reason: Evaluation/Treatment Medical History Pertinent Medical History: Atrial Fib, COPD, Heart Failure, HTN, Hypothroidism Current History Patient reports she walked to [facility] bathroom independently and fell off toielt reaching to clean up poo from the floor. Reviewed History: Yes Social History Home: Intermediate Current Living Status: Alone Entry Into Home: Stairs With Railing, Level Entry VC, SNF ADL-Prior Level of Function SCALE: Activities may be completed with or without assistive devices. 8-Qgubuwkarh-ltxneul completes the activity by him/herself with no assistance from a helper. 5-Set-up or Clean-up Assistance-helper sets up or cleans up; patient completes activity. [place] assists only prior to or following the activity. 4-Supervision or Touching Assistance-helper provides verbal cues and/or touching/steadying and/or contact guard assistance as patient completes activity. Assistance may be provided throughout the activity or intermittently. 3-Partial/Moderate Assistance-helper does LESS THAN HALF the effort. [place] li fts, holds or supports trunk or limbs, but provides less than half the effort. 2-Substantial/Maximal Assistance-helper does MORE THAN HALF the effort. [place] lifts or holds trunk or limbs and provides more than half the effort. 4-Cabhhnnvi-xmrjju does ALL the effort. Patient does none of the effort to complete the activity. Or, the assistance of 2 or more helpers is required for the patient to complete the activity. If activity was not attempted, code reason: 7-Patient Refused. 9-Not Applicable-not attempted and the patient did not perform the activity before the current illness, exacerbation or injury. 10-Not Attempted due to Environmental Limitations-(lack of equipment, weather restraints, etc.). 88-Not Attempted due to Medical Conditions or Safety Concerns. Self Care: Needed Some Help Functional Cognition: Needed Some Help Drive Self: No OT Current Status Subjective VERY TIRED Mental Status/Objective Patient Orientation: Person, Confused, Place Attachments: IV, Oxygen, SCD's Current Glasses/Contacts: Yes Upper Extremity ROM unable to fully assess d/t patient not follow commands and fatigue Upper Extremity Coordination unable to fully assess d/t patient not follow commands and fatigue Upper Extremity Sensation WFLs Upper Extremity Strength unable to fully assess d/t patient not follow commands and fatigue Edema: BUE s ADL-Treatment Eating (QC): 88 Oral Hygiene (QC): 88 Shower/Bathe Self (QC): 88 Upper Body Dressing (QC): 2 Lower Body Dressing (QC): 1 On/Off Footwear (QC): 1 Toileting Hygiene (QC): 1 Education OT Patient Education: Correct positioning, Exercise program, Modified ADL techniques, Progress toward Goal/Update tx plan, Purpose of tx/functional activities, Reviewed precautions, Rehab process, Safety issues, Transfer techniques, Use of adapted equipment Teaching Recipient: Patient, Significant Other Teaching Methods: Demonstration Response to Teaching: Unable to Return Demonstration, Reinforcement Needed OT [facility] Goals [facility] Goals Time Frame: Feb 08, 2023 Eating (QC): 6 Oral Hygiene (QC): 6 Toileting Hygiene (QC): 4 Shower/Bathe Self (QC): 4 Upper Body Dressing (QC): 5 Lower Body Dressing (QC): 4 On/Off Footwear (QC): 4 1=Demonstrate adherence to instructed precautions during ADL tasks. 2=Patient will verbalize/demonstrate understanding of assistive devices/modifications for ADL. 3=Patient will improve strength/tolerance for activity to enable patient to perform ADL's. OT Education/Plan Problem List/Assessment Assessment: Decreased Activ Tolerance, Decreased Safety Aware, Decreased UE Strength, Dependent Transfers, Impaired Bed Mobility, Impaired Cognition, Impaired Coordination, Impaired Funct Balance, Impaired Self-Care Skills Discharge Recommendations Plan/Recommendations: Continue POC Therapy Discharge Recommendati: Post Acute OT Treatment Plan/Plan of Care Treatment,Training & Education: Yes Patient would benefit from OT for education, treatment and training to promote independence in ADL's, mobility, safety and/or upper extremity function for ADL's. Plan of Care: ADL Retraining, Cognitive Retraining, Concurrent Therapy, Functional Mobility, Group Exercise/Act as Ind, UE Funct Exercise/Act Treatment Duration: Feb 08, 2023 Frequency: 3 times per week Estimated Hrs Per Day: .25 hour per day Agreement: Yes Rehab Potential: Fair Time Start Time: 14:30 Stop Time: 14:50 DATE: Feb 01, 2023 Total Time Billed (hr/min): 20 Billed Treatment Time EVM 20 min FELICIANO JOHNSON OT Feb 01, 2023 15:05
[2023-02-02] MEDS: CEFEPIME INJECTION 1,000 MG in NS (IVPB) 50 ML 50 ML IV SCH ×3 (02:35→17:55)
[2023-02-02 03:25] LABS: BASOPHILS # (AUTO) 0.1 10^3/uL (0.0-0.1); BASOPHILS % (AUTO) 0 % (0-10); EOSINOPHILS # (AUTO) 0.4 10^3/uL (0.0-0.3); EOSINOPHILS % (AUTO) 3 % (0-10); HEMATOCRIT 27 % (35-52); HEMOGLOBIN 8.7 g/dL (11.5-16.0); LYMPHOCYTES # (AUTO) 0.6 10^3/uL (1.0-4.0); LYMPHOCYTES % (AUTO) 3 % (12-44); MEAN CORPUSCULAR HEMOGLOBIN 29 pg (25-34); MEAN CORPUSCULAR HGB CONC 32 g/dL (32-36); MEAN CORPUSCULAR VOLUME 91 fL (80-99); MEAN PLATELET VOLUME 8.3 fL (9.0-12.2); MONOCYTES # (AUTO) 0.5 10^3/uL (0.0-1.0); MONOCYTES % (AUTO) 3 % (0-12); NEUTROPHILS # (AUTO) 14.4 10^3/uL (1.8-7.8); NEUTROPHILS % (AUTO) 90 % (42-75); PLATELET COUNT 297 10^3/uL (130-400); WHITE BLOOD COUNT 16.1 10^3/uL (4.3-11.0)
[2023-02-02 03:37] LABS: ALBUMIN 2.3 GM/DL (3.2-4.5)
[2023-02-02 03:38] LABS: POTASSIUM 3.5 MMOL/L (3.6-5.0)
[2023-02-02 03:39] LABS: CALCIUM 8.1 MG/DL (8.5-10.1)
[2023-02-02 03:40] LABS: TOTAL PROTEIN 4.9 GM/DL (6.4-8.2)
[2023-02-02 03:42] LABS: BILIRUBIN,TOTAL 0.6 MG/DL (0.1-1.0)
[2023-02-02 03:43] LABS: PHOSPHORUS 2.8 MG/DL (2.3-4.7)
[2023-02-02 03:44] LABS: CREATININE SERUM 0.82 MG/DL (0.60-1.30)
[2023-02-02 03:47] LABS: MAGNESIUM 1.9 MG/DL (1.6-2.4)
[2023-02-02] MEDS: POTASSIUM CL 10MEQ/50ML IVPB 50 ML IV SCH (05:33)
[2023-02-02] MEDS: POTASSIUM CHLORIDE 20 MEQ TABLET PO SCH (05:52)
[2023-02-02] MEDS: MAGNESIUM 1 GM/100 ML IVPB 100 ML IV SCH ×3 (05:52→06:37)
[2023-02-02] MEDS: ACETAMINOPHEN 325 MG TABLET PO PRN ×2 (07:45→16:47)
--- NOTE | 2023-02-02 08:06 | Cardiology Progress Note ---
Subjective Date Seen by Provider: Feb 02, 2023 Time Seen by Provider: 08:05 Subjective/Events-last exam Patient is laying down in bed, feeling better Complaining of back pain and generalized body ache Review of Systems General: No Chills, No Night Sweats; Fatigue, Malaise; No Appetite, No Other HEENT: No Head Aches, No Visual Changes, No Eye Pain, No Ear Pain, No Dy sphasia, No Sinus Congestion, No Post Nasal Drip, No Sore Throat, No Other Pulmonary: No Dyspnea, No Cough, No Pleuritic Chest Pain, No Other Cardiovascular: No: Chest Pain, Palpitations, Orthopnea, Paroxysmal Noc. Dyspnea, Edema, Lt Headedness, Other Objective-Cardiology Exam Last Set of Vital Signs Vital Signs 01/29/23 02/01/23 02/02/23 02/02/23 16:00 19:41 07:00 07:12 Temp 36.5 Pulse 67 Resp 13 B/P (MAP) 157/73 (101) Pulse Ox 99 O2 Delivery Nasal Cannula O2 Flow Rate 5.00 FiO2 21 I&O Intake and Output 02/02/23 00:00 Intake Total 1810 ml Output Total 1075 ml Balance 735 ml Intake Oral 1110 ml IV Total 700 ml Output Urine Total 1075 ml # Voids 3 # Bowel Movements 3 General: Alert, Oriented X3, Cooperative, No Acute Distress, Other (Chronically ill) HEENT: Atraumatic, PERRLA, EOMI, Mucous Memb Moist/[place] Neck: Supple Lungs: Clear to Auscultation, Normal Air Movement Heart: Regular Rate, Normal S1, Normal S2 Abdomen: Normal Bowel Sounds Extremities: No Clubbing, No Cyanosis Skin: No Rashes, No Breakdown Neuro: Normal Speech Psych/Mental Status: Mental Status NL Results Lab Laboratory Tests 02/02/23 03:00 A/P-Cardiology Admission Diagnosis Anemia Syncope Paroxysmal atrial fibrillation Hypertension Assessment/Plan Severe anemia, syncope. Status post EGD and colonoscopy done by Dr. Tracy Continue to monitor H&H GI bleed Status post miller endoscopy showing severe gastritis, hiatal hernia and esophageal stricture and sigmoid diverticulosis. No active bleeding was reported during scope Currently oral anticoagulation on hold. Continue to monitor Acute on chronic diastolic CHF - MPI of 09-22-2022 showed no evidence of ischemia or infarction. No regional wall motion abnormality. MPI 56% - clinically improving ; shortness of breath significantly improved Possible pneumonia, chest x-ray ordered. Requiring higher dose of oxygen. - management per medical services SSS and PAF - S/P ILR implant 03-01-[address] Garnica - OAC with Xarelto -hold due to severe anemia and possible bleeding. - EP consult with Dr. Miller who has advised continued medical management, recommended starting Flecainide or Amiodarone per last note in Jul 2022. - ECG on 10-14-22: NSR with LBBB and PACs - Recurrent A Fib for which she underwent cardioversion on 11/16/[address] Green - was started on Flecainide 100mg BID - a-fib with RVR on EKG of 12-10-22. Flecainide d/c'd, amiodarone initiated on 12-11-22 - ext elec CV to sinus rhythm on 12-14-22 Hypothyroidism,treated with thyroid replacement therapy. Managed by PCP Hypertension, stable Carotid art disease, history of s/p R CEA by Dr Adams on 05/26/21 at [place] Mild bilat dz per u/s of 09-10-2021 Mitral regurg and mild pulm htn - Echocardiogram of 12-04-[address] Garnica showed LVEF 55-65%. LA mildly dilated. Mod to severe MR. PASP 40-45 mmHg - Echocardiogram of 09-02-20 showed LVEF 55-60%. Grade 1 diastolic dysfunction. Mild MR. AoV sclerosis with mild regurg. PASP 40-45 mmHg - sleep studies by Dr. Brown on 02-14-21 did not indicate sleep apnea - a-fib seen during the test - Echo of 12-11-22: LVEF 55-60%, mod to sev enlargement of LA, mild enlargement of RA, mild to mod MR, triv AI, L pleural eff, PASP 45-50 mmHg COPD with nocturnal hypoxemia Quit smoking when she was in her 40's Chronic, bilateral leg swelling, likely related to venous insuff Chronic scoliosis and degenerative cervical spinal disease (chronically stiff neck and shoulders) RITO GREEN MD Feb 02, 2023 08:06
--- NOTE | 2023-02-02 08:43 | Diagnostic Imaging Report ---
INDICATION: Hypoxia, ICU care/management. TECHNIQUE: Single view chest at 6:28 AM. CORRELATION STUDY: 02/01/2023. FINDINGS: The heart size is borderline enlarged. The vasculature remains prominent. Extensive 5 lobe pulmonary infiltrate-like opacity is again demonstrated, right greater than left. Overall, this appears increased, particularly in the right suprahilar region. Small effusions. IMPRESSION: Increasing 5 lobed pulmonary infiltrate, right greater than left, which may reflect worsening edema versus pneumonia. Dictated by: Dictated on workstation # [id number]
--- NOTE | 2023-02-02 08:51 | Tele-ICU Progress Note ---
Subjective Date Seen by a Provider: Feb 02, 2023 Subjective/Events-last exam (Tele-ICU Physician , Progress Note ) Service provided via interactive audio and video telecommunications E-CARE system to a patient admitted to ICU bed in [facility]. Patient is seen today due to persistent need of ICU care Available chart/ vitals / labs / Images reviewed Video assessment done using teleICU camera, rest of exam as per RN Discussed with RN Events overnight : c/o back and hip pain releived with Tylenol At times confused Afebrile hemodynamically stable Respiratory - 1L I/O = Drips: ns 70 Pressors- no Hospital course: (01/29) 83F Admitted from [place] for syncope, recent COVID infection 10 days ago-CXR NEG now. Anemia (on xarelto), KAY. COPD hx. EGD showed reflux esophagitis(grade C) with mild dist esoph stricture, small HH(2cm), moderate-severe gastritis. moderate sigmoid diverticulosis A/P Syncope - presume due to anemia- monitor - CTH - neg Anemia - Hb 8.7 - > - PPI bid iv - Reflux esophagitis, will continue on IV PPI Sepsis Event Evaluation Height, Weight, BMI Height: 5'3.50" Weight: 157lbs. 0.9oz. [id number]; 23.00 BMI Method: Exam Exam Patient acknowledged, consented, and participated in this virtual visit which was conducted using real time audio/video Vital Signs Date Time Temp Pulse Resp B/P (MAP) Pulse Ox O2 Delivery O2 Flow Rate FiO2 02/02/23 08:00 36.4 02/02/23 08:00 68 14 155/63 (93) 92 Nasal Cannula 5.00 02/02/23 07:12 67 02/02/23 07:00 65 13 157/73 (101) 99 Nasal Cannula 5.00 02/02/23 06:00 72 24 137/67 (90) 92 Nasal Cannula 5.00 02/02/23 05:09 68 13 137/77 (95) 98 Nasal Cannula 5.00 02/02/23 05:00 67 17 92/67 (79) 99 Nasal Cannula 5.00 02/02/23 04:30 71 20 103/77 (83) 90 Nasal Cannula 5.00 02/02/23 04:00 71 13 169/78 (113) 96 Nasal Cannula 5.00 02/02/23 04:00 93 Nasal Cannula 4.00 02/02/23 03:30 70 17 173/74 (95) 98 Nasal Cannula 5.00 02/02/23 03:00 65 12 168/61 (78) 99 Nasal Cannula 5.00 02/02/23 02:00 64 14 150/53 (97) 96 Nasal Cannula 5.00 02/02/23 01:00 60 13 145/57 (96) 100 Nasal Cannula 5.00 02/02/23 01:00 60 02/02/23 00:00 68 38 156/65 (95) 100 Nasal Cannula 5.00 02/01/23 23:59 98 Nasal Cannula 4.00 02/01/23 23:30 64 12 126/57 (80) 100 Nasal Cannula 5.00 02/01/23 23:00 65 30 157/75 (85) 100 Nasal Cannula 5.00 02/01/23 22:00 64 10 153/50 (86) 100 Nasal Cannula 5.00 02/01/23 21:00 61 12 141/61 (88) 97 Nasal Cannula 5.00 02/01/23 20:55 98 Nasal Cannula 4.00 02/01/23 20:30 64 128/59 (75) 99 Nasal Cannula 5.00 02/01/23 20:00 66 14 145/66 (90) 97 Nasal Cannula 5.00 02/01/23 19:41 36.5 02/01/23 19:30 70 13 144/72 (77) 97 Nasal Cannula 5.00 02/01/23 19:00 65 02/01/23 19:00 65 15 151/63 (89) 100 Nasal Cannula 5.00 02/01/23 18:00 80 26 156/91 (112) 92 Nasal Cannula 5.00 02/01/23 17:00 64 11 145/59 (87) 98 Nasal Cannula 5.00 02/01/23 16:18 94 Nasal Cannula 4.00 02/01/23 16:06 36.7 02/01/23 16:00 79 15 128/45 (72) 100 Nasal Cannula 5.00 02/01/23 15:00 67 14 91/45 (60) 96 Nasal Cannula 5.00 02/01/23 14:00 70 14 109/46 (67) 94 Nasal Cannula 5.00 02/01/23 13:00 73 17 99/51 (67) 91 Nasal Cannula 5.00 02/01/23 12:39 75 02/01/23 12:15 93 Nasal Cannula 4.00 02/01/23 12:00 76 11 98/52 (67) 99 Nasal Cannula 5.00 02/01/23 11:00 76 11 117/50 (72) 92 Nasal Cannula 5.00 02/01/23 10:46 98 Nasal Cannula 2.00 02/01/23 10:30 65 13 143/58 (86) 95 Nasal Cannula 5.00 02/01/23 10:00 69 33 94 Nasal Cannula 5.00 02/01/23 09:00 75 16 124/52 (76) 90 Nasal Cannula 5.00 I & O 02/02/23 07:00 Intake Total 2320 ml Output Total 1775 ml Balance 545 ml Height & Weight Height: 5'3.50" Weight: 157lbs. 0.9oz. [id number]; 23.00 BMI Method: General Appearance: No Apparent Distress, WD/WN HEENT: PERRL/EOMI Neck: Normal Inspection, Supple Respiratory: No Accessory Muscle Use, No Respiratory Distress, Decreased Breath Sounds, Rhonci Cardiovascular: Regular Rate, Rhythm, No Murmur Capillary Refill: Less Than 3 Seconds Gastrointestinal: normal bowel sounds, non tender, soft, other (some diarrhea yesterday) Extremity: Normal Inspection, Normal Range of Motion, No Pedal Edema Neurologic/Psychiatric: Alert, Oriented x3 Skin: Normal Color, Warm/Dry Results Lab Laboratory Tests 02/01/23 04:35 02/02/23 03:00 Assessment/Plan Assessment/Plan reflux esophagitis, gastritis, to go to floor continue on IV PPI, monitor Hb Critical Care: Critically Ill Patient Time spent with patient (mins): 25 REINALDO BOO MD Feb 02, 2023 08:51
[2023-02-02] MEDS: SENNOSIDES 8.6 MG TABLET PO SCH ×2 (08:58→21:32)
[2023-02-02] MEDS: PANTOPRAZOLE INJECTION 40 MG VIAL IV SCH ×2 (08:58→21:35)
[2023-02-02] MEDS: DOCUSATE SODIUM 100 MG CAPSULE PO SCH (08:58)
[2023-02-02] MEDS: AZITHROMYCIN INJECTION 500 MG in NS (IVPB) 250 ML 250 ML IV SCH (08:58)
--- NOTE | 2023-02-02 10:06 | Progress Note ---
VIOLA REESE 02/02/23 1006: Subjective Date Seen by a Provider: Feb 02, 2023 Time Seen by a Provider: 08:25 Subjective/Events-last exam Patient is doing worse than yesterday. She is having pain, especially in her back and hips. Still having weakness and is loosing her appetite, has not been able to eat last night or this morning. Nurse reported that she has had diarrhea 7x since last patient visit. Patient was alert & oriented x3, but was answering questions in short answers. She would look up, answer, and then lay her head back onto the pillow with every question asked. Denied any dizziness, fever, chills, nausea, or vomiting. Review of Systems General: No Chills, No Night Sweats; Fatigue, Malaise, Appetite; No Other HEENT: No Head Aches, No Visual Changes, No Eye Pain, No Ear Pain, No Dysphasia, No Sinus Congestion, No Post Nasal Drip, No Sore Throat, No Other Pulmonary: No Dyspnea, No Cough, No Pleuritic Chest Pain, No Other Cardiovascular: No: Chest Pain, Palpitations, Orthopnea, Paroxysmal Noc. Dyspnea, Edema, Lt Headedness, Other Gastrointestinal: Diarrhea; No: Nausea, Vomiting, Abdominal Pain, Constipation, Melena, Hematochezia, Other Genitourinary: No Dysuria, No Frequency, No Incontinence, No Hematuria, No Retention, No Other Musculoskeletal: back pain; No: other, neck pain, shoulder pain, arm pain, hand pain, leg pain, foot pain Neurological: No: Weakness, Numbness, Incoordination, Change in speech, Confusion, Seizures, Other Objective Exam Last Set of Vital Signs Vital Signs Date Time Temp Pulse Resp B/P (MAP) Pulse Ox O2 Delivery O2 Flow Rate FiO2 02/02/23 09:00 68 14 135/68 (90) 94 Nasal Cannula 5.00 02/02/23 08:00 36.4 01/29/23 16:00 21 Capillary Refill : Less Than 3 Seconds I&O Intake and Output 02/02/23 00:00 Intake Total 1810 ml Output Total 1075 ml Balance 735 ml Intake Oral 1110 ml IV Total 700 ml Output Urine Total 1075 ml # Voids 3 # Bowel Movements 3 Results Lab Laboratory Tests 02/01/23 13:02: Lab Scanned Report Transfusion Reaction Form 02/02/23 03:00: White Blood Count 16.1H, Red Blood Count 2.97L, Hemoglobin 8.7L, Hematocrit 27L, Mean Corpuscular Volume 91, Mean Corpuscular Hemoglobin 29, Mean Corpuscular Hemoglobin Concent 32, Red Cell Distribution Width 16.3H, Platelet Count 297, Mean Platelet Volume 8.3L, Immature Granulocyte % (Auto) 1, Neutrophils (%) (Auto) 90H, Lymphocytes (%) (Auto) 3L, Monocytes (%) (Auto) 3, Eosinophils (%) (Auto) 3, Basophils (%) (Auto) 0, Neutrophils # (Auto) 14.4H, Lymphocytes # (Auto) 0.6L, Monocytes # (Auto) 0.5, Eosinophils # (Auto) 0.4H, Basophils # (Auto) 0.1, Immature Granulocyte # (Auto) 0.2H, Sodium Level 133L, Potassium Level 3.5L, Chloride Level 97L, Carbon Dioxide Level 30, Anion Gap 6, Blood Urea Nitrogen 12, Creatinine 0.82, Estimat Glomerular Filtration Rate 71, BUN/Creatinine Ratio 15, Glucose Level 88, Calcium Level 8.1L, Corrected Calcium 9.5, Phosphorus Level 2.8, Magnesium Level 1.9, Total Bilirubin 0.6, Aspartate Amino Transf (AST/SGOT) 24, Alanine Aminotransferase (ALT/SGPT) 22, Alkaline Phosphatase 64, Total Protein 4.9L, Albumin 2.3L Microbiology 02/01/23 Blood Culture - Preliminary, Resulted Probable Coag Negative Staph 01/29/23 MRSA Screen - Final, Complete MRSA not isolated Assessment/Plan Assessment/Plan Assess & Plan/Chief Complaint Assessment: Hypovolemic shock & suspected GI bleed on anticoagulant Facility acquired pneumonia on IV antibiotics Symptomatic anemia causing syncope Severe anemia requiring 1 PRBC Hx of hypercapnic respiratory failure requiring BiPAP Chronic lower extremity edema COPD Afib w/ RVR hx status post cardioconversion Hypothyroidism Anxiety HTN Plan: Continue IV antibiotics Hold anticoagulant Move to 4th floor Ambulate Monitor hemoglobin Clinical Quality Measures DVT/VTE Risk/Contraindication: Contraindications-Pharm: Other *list below* Other: MELINA GREGORY DO 02/02/23 2004: Subjective Subjective/Events-last exam No major issues Stable but very complicated Less dyspnea IV abx maintained Move to 4th floor Review of Systems General: Fatigue, Malaise Pulmonary: Dyspnea Objective Exam General: Alert, Oriented X3, Cooperative, No Acute Distress Lungs: Clear to Auscultation, Normal Air Movement Heart: Regular Rate, Normal S1, Normal S2, No Murmurs Psych/Mental Status: Mental Status NL, Mood NL Assessment/Plan Assessment/Plan Assess & Plan/Chief Complaint End goal discussion would be ideal Stable but very declined Supervisory-Addendum Brief Verification & Attestation Participated in pt care: history, MDM, physical Personally performed: exam, history, MDM, supervision of care Care discussed with: Medical Student Procedures: n/a Results interpretation: Verified all documentation Verification and Attestation of Medical Student E/M Service A medical student performed and documented this service in my presence. I reviewed and verified all information documented by the medical student and made modifications to such information, when appropriate. I personally performed the physical exam and medical decision making. Melina Benjamin, Feb 02, 2023,20:02 VIOLA REESE Feb 02, 2023 10:06 MELINA BENJAMIN DO Feb 02, 2023 20:04
[2023-02-02] MEDS: BETHANECHOL 25 MG TABLET PO SCH ×2 (10:44→21:32)
[2023-02-02] MEDS: LEVOTHYROXINE 88 MCG TABLET PO SCH (10:47)
[2023-02-02 12:52] VITALS: BP 145/66
--- NOTE | 2023-02-02 12:54 | Physical Therapy Daily Note ---
PT Daily Note-Current Subjective Patient agrees to therapy. Pain Section J - Health Conditions 1. Rarely or not at all 2. Occasionally 3. Frequently 4. Almost constantly 8. Unable to answer Pain Effect on Sleep: 8 Pain Interference with Therapy: 8 Pain Interference w/Day-to-Day: 8 Mental Status Attachments: Oxygen, Ham Catheter Transfers SCALE: Activities may be completed with or without assistive devices. 2-Mzkolaandm-obhsuan completes the activity by him/herself with no assistance from a helper. 5-Set-up or Clean-up Assistance-helper sets up or cleans up; patient completes activity. [place] assists only prior to or following the activity. 4-Supervision or Touching Assistance-helper provides verbal cues and/or touching/steadying and/or contact guard assistance as patient completes activity. Assistance may be provided throughout the activity or intermittently. 3-Partial/Moderate Assistance-helper does LESS THAN HALF the effort. [place] lifts, holds or supports trunk or limbs, but provides less than half the effort. 2-Substantial/Maximal Assistance-helper does MORE THAN HALF the effort. [place] lifts or holds trunk or limbs and provides more than half the effort. 1-Qbncxkgrh-bjagyr does ALL the effort. Patient does none of the effort to complete the activity. Or, the assistance of 2 or more helpers is required for the patient to complete the activity. If activity was not attempted, code reason: 7-Patient Refused. 9-Not Applicable-not attempted and the patient did not perform the activity before the current illness, exacerbation or injury. 10-Not Attempted due to Environmental Limitations-(lack of equipment, weather restraints, etc.). 88-Not Attempted due to Medical Conditions or Safety Concerns. Lying to Sitting/Side of Bed(Q: 2 Sit to Stand (QC): 2 Chair/Khm-sc-Wzzit Xfer(QC): 2 Weight Bearing Right Lower Extremity: Right Weight Bearing/Tolerated Left Lower Extremity: Left Weight Bearing/Tolerated Gait Training Distance: 5 steps Gait Assistive Device: FWW retropulsive/PT correct/mod assist with all upright mobility Exercises Seated Therapy Exercises: Sit to stand Seated Reps: 2 (to FWW with noted retropulsion) Assessment Patient requires redirection to remain on and complete all functional tasks. Patient up in recliner with lunch in situ. PT Medical Records Auditor Goals Fdc Goals PT Fdc Goals Time Frame: Mar 06, 2023 Roll Left & Right (QC): 5 Sit to Lying (QC): 5 Lying-Sitting on Side/Bed(QC): 5 Sit to Stand (QC): 4 Chair/Qye-um-Xwecq Xfer(QC): 4 Toilet Transfer (QC): 4 Car Transfer (QC): 4 Does the Patient Walk: Yes Walk 10 feet (QC): 4 Walk 50ft with 2 Turns (QC): 4 Walk 150 ft (QC): 4 1 Step (curb) (QC): 3 4 Steps (QC): 3 PT Plan Treatment/Plan Treatment Plan: Continue Plan of Care Treatment Plan: Bed Mobility, Education, Functional Activity Samy, Functional Strength, Group Therapy, Gait, Safety, Therapeutic Exercise, Transfers Treatment Duration: Mar 06, 2023 Frequency: 6 times per week Estimated Hrs Per Day: .25 hour per day Time Time In: 1130 Time Out: 1157 DATE: Feb 02, 2023 Total Billed Treatment Time: 27 Total Billed Treatment 1 visit FA x 2 27 min MIRIAM JEWELL PT Feb 02, 2023 12:54
--- NOTE | 2023-02-02 13:01 | Occupational Ther Daily Note ---
OT Current Status-Daily Note Subjective Patient reports she does not recall yesterday and she report she hasn't walked in weeks. Mental Status/Objective Patient Orientation: Person, Place, Time Attachments: IV, Oxygen, SCD's, Other-See Comments (NIGEL MATA) ADL-Treatment Patient required moderate encouragement to perform bed mobility on bed to remove SCD and apply socks EOB. Required extensive amount of time to process mobility plan. Required multiple redirection cues to keep eyes open. Patient demonstrates impaired FMC w/ manipulation of unfolding socks to apply to feet. Requires step by step instruction w/ hand placement cues and scooting forward on bed. Holds sock out to foot and says, "I can't" OT encouraged multile sitting positions for success and OT applied sock over toes of each foot. Patient again demonstrated FMC difficulty w/ socks. At conclusion of session patient is able to cut meat selection and spoon side entrees w/ assistance Therapy Code Descriptions/Definitions Functional [place] Measure: 0=Not Assessed/NA 4=Minimal Assistance 1=Total Assistance 5=Supervision or Setup 2=Maximal Assistance 6=Modified [place] 3=Moderate Assistance 7=Complete IndependenceSCALE: Activities may be completed with or without assistive devices. 5-Kcyciyjrzh-vdxjsaq completes the activity by him/herself with no assistance from a helper. 5-Set-up or Clean-up Assistance-helper sets up or cleans up; patient completes activity. [place] assists only prior to or following the activity. 4-Supervision or Touching Assistance-helper provides verbal cues and/or touching/steadying and/or contact guard assistance as patient completes activity. Assistance may be provided throughout the activity or intermittently. 3-Partial/Moderate Assistance-helper does LESS THAN HALF the effort. [place] lifts, holds or supports trunk or limbs, but provides less than half the effort. 2-Substantial/Maximal Assistance-helper does MORE THAN HALF the effort. [place] lifts or holds trunk or limbs and provides more than half the effort. 4-Rmscbflou-hglely does ALL the effort. Patient does none of the effort to complete the activity. Or, the assistance of 2 or more helpers is required for the patient to complete the activity. If activity was not attempted, code reason: 7-Patient Refused. 9-Not Applicable-not attempted and the patient did not perform the activity before the current illness, exacerbation or injury. 10-Not Attempted due to Environmental Limitations-(lack of equipment, weather restraints, etc.). 88-Not Attempted due to Medical Conditions or Safety Concerns. Eating (QC): 6 Oral Hygiene (QC): 4 Lower Body Dressing (QC): 88 (no brief) On/Off Footwear: 2 Toileting Hygiene (QC): 2 (residual BM noted in seating surface, patient unable to release hold on FWW to perfom hygiene tasks) Required 2 persons for bed transfer from bed to recliner Education OT Patient Education: Correct positioning, Modified ADL techniques, Progress toward Goal/Update tx plan, Purpose of tx/functional activities, Reviewed precautions, Rehab process, Safety issues, Transfer techniques, Use of adapted equipment Teaching Recipient: Patient Teaching Methods: Demonstration, Discussion Response to Teaching: Verbalize Understanding OT Molded Frames Assembler Goals Snf Goals 1=Demonstrate adherence to instructed precautions during ADL tasks. 2=Patient will verbalize/demonstrate understanding of assistive devices/modifications for ADL. 3=Patient will improve strength/tolerance for activity to enable patient to perform ADL's. OT Education/Plan Problem List/Assessment Assessment: Decreased Activ Tolerance, Decreased Safety Aware, Decreased UE Strength, Dependent Transfers, Impaired Bed Mobility, Impaired Cognition, Impaired Coordination, Impaired Funct Balance, Impaired Self-Care Skills Discharge Recommendations Plan/Recommendations: Continue POC Therapy Discharge Recommendati: Post Acute OT Treatment Plan/Plan of Care Treatment,Training & Education: Yes Patient would benefit from OT for education, treatment and training to promote independence in ADL's, mobility, safety and/or upper extremity function for ADL's. Plan of Care: ADL Retraining, Cognitive Retraining, Concurrent Therapy, Functional Mobility, Group Exercise/Act as Ind, UE Funct Exercise/Act, UE Neuromus Re-Ed/Coord Treatment Duration: Feb 08, 2023 Frequency: 3 times per week (3-5 times per week) Estimated Hrs Per Day: .25 hour per day Agreement: Yes Rehab Potential: Fair Up in recliner eating, all needs met Time Start Time: 11:32 Stop Time: 12:00 DATE: Feb 02, 2023 Total Time Billed (hr/min): 28 Billed Treatment Time ADL 28 min FELICIANO JOHNSON OT Feb 02, 2023 13:01
[2023-02-02 15:22] VITALS: BP 145/71
[2023-02-02 20:02] VITALS: BP 100/61
[2023-02-02] MEDS: RT-BUDESONIDE NEBS 0.5 MG/2ML VIAL IH SCH (20:53)
[2023-02-02] MEDS: ASPIRIN enteric coated 81MG TABLET PO SCH (21:32)
[2023-02-02 23:50] VITALS: BP 152/66
[2023-02-03] VITALS (7 sets, daily range): BP systolic 135–170; BP diastolic 60–72
[2023-02-03] MEDS: CEFEPIME INJECTION 1,000 MG in NS (IVPB) 50 ML 50 ML IV SCH ×3 (02:56→17:54)
[2023-02-03] MEDS: RT-BUDESONIDE NEBS 0.5 MG/2ML VIAL IH SCH ×3 (02:57→20:39)
[2023-02-03] MEDS: ACETAMINOPHEN 325 MG TABLET PO PRN ×4 (02:57→21:03)
[2023-02-03 06:00] LABS: BASOPHILS # (AUTO) 0.1 10^3/uL (0.0-0.1); BASOPHILS % (AUTO) 1 % (0-10); EOSINOPHILS # (AUTO) 0.4 10^3/uL (0.0-0.3); EOSINOPHILS % (AUTO) 3 % (0-10); HEMATOCRIT 27 % (35-52); HEMOGLOBIN 8.8 g/dL (11.5-16.0); LYMPHOCYTES # (AUTO) 0.6 10^3/uL (1.0-4.0); LYMPHOCYTES % (AUTO) 4 % (12-44); MEAN CORPUSCULAR HEMOGLOBIN 30 pg (25-34); MEAN CORPUSCULAR HGB CONC 33 g/dL (32-36); MEAN CORPUSCULAR VOLUME 91 fL (80-99); MEAN PLATELET VOLUME 8.7 fL (9.0-12.2); MONOCYTES # (AUTO) 0.5 10^3/uL (0.0-1.0); MONOCYTES % (AUTO) 3 % (0-12); NEUTROPHILS # (AUTO) 12.4 10^3/uL (1.8-7.8); NEUTROPHILS % (AUTO) 88 % (42-75); PLATELET COUNT 318 10^3/uL (130-400); WHITE BLOOD COUNT 14.1 10^3/uL (4.3-11.0)
[2023-02-03 06:28] LABS: ALBUMIN 2.3 GM/DL (3.2-4.5); BILIRUBIN,TOTAL 0.6 MG/DL (0.1-1.0); CALCIUM 8.3 MG/DL (8.5-10.1); CREATININE SERUM 0.89 MG/DL (0.60-1.30); MAGNESIUM 2.1 MG/DL (1.6-2.4); POTASSIUM 3.9 MMOL/L (3.6-5.0); TOTAL PROTEIN 4.7 GM/DL (6.4-8.2)
[2023-02-03] MEDS ORDERED: LEVOTHYROXINE 75 MCG TABLET PO SCH (06:30)
[2023-02-03] MEDS: POTASSIUM CHLORIDE 20 MEQ TABLET PO SCH (08:41)
[2023-02-03] MEDS: PANTOPRAZOLE 40 MG TABLET PO SCH ×2 (08:41→20:56)
[2023-02-03] MEDS: IRON SUCROSE 200 MG/10 ML VIAL IV SCH (08:41)
[2023-02-03] MEDS: AZITHROMYCIN INJECTION 500 MG in NS (IVPB) 250 ML 250 ML IV SCH (08:42)
[2023-02-03] MEDS: DOCUSATE SODIUM 100 MG CAPSULE PO SCH (08:44)
[2023-02-03] MEDS: SENNOSIDES 8.6 MG TABLET PO SCH ×2 (08:45→20:58)
[2023-02-03] MEDS: BETHANECHOL 25 MG TABLET PO SCH ×2 (10:31→21:55)
--- NOTE | 2023-02-03 10:33 | Cardiology Progress Note ---
Subjective Date Seen by Provider: Feb 03, 2023 Time Seen by Provider: 10:32 Subjective/Events-last exam Patient is in bed, complaining of generalized weakness. Objective-Cardiology Exam Last Set of Vital Signs Vital Signs 01/29/23 02/03/23 16:00 11:26 Temp 36.5 Pulse 68 Resp 17 B/P (MAP) 135/60 (85) Pulse Ox 96 O2 Delivery Nasal Cannula O2 Flow Rate 3.00 FiO2 21 I&O Intake and Output 02/03/23 00:00 Intake Total 1900 ml Output Total 1050 ml Balance 850 ml Intake Oral 1250 ml IV Total 650 ml Output Urine Total 1050 ml # Voids 1 General: Alert, Oriented X3, Cooperative, No Acute Distress HEENT: Atraumatic, PERRLA, EOMI, Mucous Memb Moist/[place] Neck: Supple Lungs: Clear to Auscultation, Normal Air Movement Heart: Regular Rate, Normal S1, Normal S2, No Murmurs Abdomen: Normal Bowel Sounds Extremities: No Clubbing, No Cyanosis Skin: No Rashes, No Breakdown Neuro: Normal Speech Psych/Mental Status: Mental Status NL, Mood NL Results Lab Laboratory Tests 02/03/23 05:50 A/P-Cardiology Admission Diagnosis Anemia Syncope Paroxysmal atrial fibrillation Hypertension Assessment/Plan Severe anemia, syncope. Status post EGD and colonoscopy done by Dr. Tracy Continue to monitor H&H GI bleed Status post miller endoscopy showing severe gastritis, hiatal hernia and esophageal stricture and sigmoid diverticulosis. No active bleeding was reported during scope Currently oral anticoagulation on hold. Continue to monitor Acute on chronic diastolic CHF - MPI of 09-22-2022 showed no evidence of ischemia or infarction. No regional wall motion abnormality. MPI 56% - clinically improving ; shortness of breath significantly improved Pneumonis, management per medical services SSS and PAF - S/P ILR implant 03-01-[address] Garnica - OAC with Xarelto -holding due to severe anemia - EP consult with Dr. Miller who has advised continued medical management, recommended starting Flecainide or Amiodarone per last note in Jul 2022. - ECG on 10-14-22: NSR with LBBB and PACs - Recurrent A Fib for which she underwent cardioversion on 11/16/[address] Green - was started on Flecainide 100mg BID - a-fib with RVR on EKG of 12-10-22. Flecainide d/c'd, amiodarone initiated on 12-11-22 - ext elec CV to sinus rhythm on 12-14-22 Hypothyroidism,treated with thyroid replacement therapy. Managed by PCP Hypertension, stable Carotid art disease, history of s/p R CEA by Dr Adams on 05/26/21 at [place], [place] Mild bilat dz per u/s of 09-10-2021 Mitral regurg and mild pulm htn - Echocardiogram of 12-04-[address] Garnica showed LVEF 55-65%. LA mildly dilated. Mod to severe MR. PASP 40-45 mmHg - Echocardiogram of 09-02-20 showed LVEF 55-60%. Grade 1 diastolic dysfunction. Mild MR. AoV sclerosis with mild regurg. PASP 40-45 mmHg - sleep studies by Dr. Brown on 02-14-21 did not indicate sleep apnea - a-fib seen during the test - Echo of 12-11-22: LVEF 55-60%, mod to sev enlargement of LA, mild enlargement of RA, mild to mod MR, triv AI, L pleural eff, PASP 45-50 mmHg COPD with nocturnal hypoxemia Extobaccoism Chronic, bilateral leg swelling, likely related to venous insuff Chronic scoliosis and degenerative cervical spinal disease (chronically stiff neck and shoulders) Supervisory-Addendum Brief Supervisory Addendum Participated in pt care: history, MDM, physical Personally performed: exam, history, MDM Care discussed with: THEO Results interpretation: Verified all documentation Notes: Patient was seen and evaluated with Luis, examination performed, management plan was discussed, agree with the current scribed note, I made few changes to the note using Italic font Patient was seen at bedside, sitting comfortably No new complain Continue to monitor H&H Continue to hold LUIS Estes Feb 03, 2023 10:33 RITO GREEN MD Feb 03, 2023 13:52
--- NOTE | 2023-02-03 11:53 | Occupational Ther Daily Note ---
OT Current Status-Daily Note Subjective Up in chair, request oral care assistance and fresh water, slightly confused w/ orientation of time Mental Status/Objective Patient Orientation: Person, Place ADL-Treatment Grooming of face, hair and oral care set up for patient w/ one step command to complete Therapy Code Descriptions/Definitions Functional [place] Measure: 0=Not Assessed/NA 4=Minimal Assistance 1=Total Assistance 5=Supervision or Setup 2=Maximal Assistance 6=Modified [place] 3=Moderate Assistance 7=Complete IndependenceSCALE: Activities may be completed with or without assistive devices. 2-Ubsmmmqcai-khvhkxn completes the activity by him/herself with no assistance from a helper. 5-Set-up or Clean-up Assistance-helper sets up or cleans up; patient completes activity. [place] assists only prior to or following the activity. 4-Supervision or Touching Assistance-helper provides verbal cues and/or touching/steadying and/or contact guard assistance as patient completes activity. Assistance may be provided throughout the activity or intermittently. 3-Partial/Moderate Assistance-helper does LESS THAN HALF the effort. [place] lifts, holds or supports trunk or limbs, but provides less than half the effort. 2-Substantial/Maximal Assistance-helper does MORE THAN HALF the effort. [place] lifts or holds trunk or limbs and provides more than half the effort. 3-Chqcxisgt-nluhis does ALL the effort. Patient does none of the effort to complete the activity. Or, the assistance of 2 or more helpers is required for the patient to complete the activity. If activity was not attempted, code reason: 7-Patient Refused. 9-Not Applicable-not attempted and the patient did not perform the activity before the current illness, exacerbation or injury. 10-Not Attempted due to Environmental Limitations-(lack of equipment, weather restraints, etc.). 88-Not Attempted due to Medical Conditions or Safety Concerns. Eating (QC): 6 Oral Hygiene (QC): 4 Education OT Patient Education: Disease process, Exercise program, Modified ADL techniques, Progress toward Goal/Update tx plan, Purpose of tx/functional activities, Reviewed precautions, Rehab process, Safety issues, Transfer techniques, Use of adapted equipment Teaching Recipient: Patient Teaching Methods: Demonstration Response to Teaching: Verbalize Understanding, Reinforcement Needed OT Horse Shoer Goals Fpc Goals Time Frame: Feb 08, 2023 Eating (QC): 6 Oral Hygiene (QC): 6 Toileting Hygiene (QC): 4 Shower/Bathe Self (QC): 4 Upper Body Dressing (QC): 5 Lower Body Dressing (QC): 4 On/Off Footwear (QC): 4 1=Demonstrate adherence to instructed precautions during ADL tasks. 2=Patient will verbalize/demonstrate understanding of assistive devices/modifications for ADL. 3=Patient will improve strength/tolerance for activity to enable patient to perform ADL's. OT Education/Plan Problem List/Assessment Assessment: Decreased Activ Tolerance, Decreased Safety Aware, Decreased UE Strength, Dependent Transfers, Impaired Bed Mobility, Impaired Cognition, Impaired Coordination, Impaired Funct Balance, Impaired Self-Care Skills, Restricted Funct UE ROM Discharge Recommendations Plan/Recommendations: Continue POC Treatment Plan/Plan of Care Treatment,Training & Education: Yes Patient would benefit from OT for education, treatment and training to promote independence in ADL's, mobility, safety and/or upper extremity function for ADL's. Plan of Care: ADL Retraining, Cognitive Retraining, Concurrent Therapy, Functional Mobility, Group Exercise/Act as Ind, UE Funct Exercise/Act Treatment Duration: Feb 08, 2023 Frequency: 3 times per week (3-5 times per week) Estimated Hrs Per Day: .25 hour per day Agreement: Yes Rehab Potential: Fair Time Start Time: 11:00 Stop Time: 11:16 DATE: Feb 03, 2023 Total Time Billed (hr/min): 16 Billed Treatment Time ADL 16 min FELICIANO JOHNSON OT Feb 03, 2023 11:53
--- NOTE | 2023-02-03 12:48 | Progress Note ---
VIOLA REESE 02/03/23 1248: Subjective Date Seen by a Provider: Feb 03, 2023 Time Seen by a Provider: 09:00 Subjective/Events-last exam Patient states that she feels better than yesterday. She looks a lot better than yesterday and her skin color is coming back to her. She was alert & oriented and able to answer any question. She still complains about pain in her hips and back. Reports no BM since last seen. Has been able to get out of bed and be moved to the chair. Has not been able to get up and walk around. Reports no chest pain, no nausea, no vomiting, and no dizziness. Still having weakness and some loss of appetite. Review of Systems General: No Chills, No Night Sweats; Fatigue, Malaise, Appetite; No Other HEENT: No Head Aches, No Visual Changes, No Eye Pain, No Ear Pain, No Dysphasia, No Sinus Congestion, No Post Nasal Drip, No Sore Throat, No Other Pulmonary: No Dyspnea, No Cough, No Pleuritic Chest Pain, No Other Cardiovascular: No: Chest Pain, Palpitations, Orthopnea, Paroxysmal Noc. Dyspnea, Edema, Lt Headedness, Other Gastrointestinal: No: Nausea, Vomiting, Abdominal Pain, Diarrhea, Constipation, Melena, Hematochezia, Other Genitourinary: No Dysuria, No Frequency, No Incontinence, No Hematuria, No Retention, No Other Musculoskeletal: other (Hip pain), back pain Neurological: No: Weakness, Numbness, Incoordination, Change in speech, Confusion, Seizures, Other Objective Exam Last Set of Vital Signs Vital Signs Date Time Temp Pulse Resp B/P (MAP) Pulse Ox O2 Delivery O2 Flow Rate FiO2 02/03/23 11:26 36.5 68 17 135/60 (85) 96 Nasal Cannula 3.00 01/29/23 16:00 21 Capillary Refill : Less Than 3 Seconds I&O Intake and Output 02/03/23 00:00 Intake Total 1900 ml Output Total 1050 ml Balance 850 ml Intake Oral 1250 ml IV Total 650 ml Output Urine Total 1050 ml # Voids 1 General: Alert, Oriented X3, Cooperative, No Acute Distress HEENT: Atraumatic, PERRLA, EOMI, Mucous Memb Moist/[place] Heart: Regular Rate, Normal S1, Normal S2 Extremities: No Clubbing, No Cyanosis Neuro: Normal Speech Psych/Mental Status: Mental Status NL, Mood NL Results Lab Laboratory Tests 02/03/23 05:50: White Blood Count 14.1H, Red Blood Count 2.97L, Hemoglobin 8.8L, Hematocrit 27L, Mean Corpuscular Volume 91, Mean Corpuscular Hemoglobin 30, Mean Corpuscular Hemoglobin Concent 33, Red Cell Distribution Width 16.7H, Platelet Count 318, Mean Platelet Volume 8.7L, Immature Granulocyte % (Auto) 1, Neutrophils (%) (Auto) 88H, Lymphocytes (%) (Auto) 4L, Monocytes (%) (Auto) 3, Eosinophils (%) (Auto) 3, Basophils (%) (Auto) 1, Neutrophils # (Auto) 12.4H, Lymphocytes # (Auto) 0.6L, Monocytes # (Auto) 0.5, Eosinophils # (Auto) 0.4H, Basophils # (Auto) 0.1, Immature Granulocyte # (Auto) 0.1, Sodium Level 133L, Potassium Level 3.9, Chloride Level 98, Carbon Dioxide Level 28, Anion Gap 7, Blood Urea Nitrogen 15, Creatinine 0.89, Estimat Glomerular Filtration Rate 64, BUN/Creatinine Ratio 17, Glucose Level 78, Calcium Level 8.3L, Corrected Calcium 9.7, Magnesium Level 2.1, Total Bilirubin 0.6, Aspartate Amino Transf (AST/SGOT) 19, Alanine Aminotransferase (ALT/SGPT) 20, Alkaline Phosphatase 79, Total Prot ein 4.7L, Albumin 2.3L Microbiology 02/01/23 Blood Culture - Preliminary, Resulted No growth 01/29/23 MRSA Screen - Final, Complete MRSA not isolated Assessment/Plan Assessment/Plan Assess & Plan/Chief Complaint Assessment: Hypovolemic shock & suspected GI bleed on anticoagulant Facility acquired pneumonia on IV antibiotics Symptomatic anemia causing syncope Severe anemia requiring 1 PRBC Hx of hypercapnic respiratory failure requiring BiPAP Chronic lower extremity edema COPD Afib w/ RVR hx status post cardioconversion Hypothyroidism Anxiety HTN Plan: Continue IV antibiotics Hold anticoagulant Monitor 4th floor Ambulate terminal worker consult Clinical Quality Measures DVT/VTE Risk/Contraindication: Contraindications-Pharm: Other *list below* Other: MELINA GREGORY DO 02/03/231948: Subjective Subjective/Events-last exam Much improved but remains very debilitated In my opinion she is now a hospice candidate Will DC tomorrow to [facility] Review of Systems General: Fatigue Pulmonary: Dyspnea Objective Exam General: Alert, Oriented X3, Cooperative, No Acute Distress Lungs: Clear to Auscultation, Normal Air Movement Heart: Regular Rate, Normal S1, Normal S2, No Murmurs Psych/Mental Status: Mental Status NL, Mood NL Assessment/Plan Assessment/Plan Assess & Plan/Chief Complaint DC tomorrow to [facility] Needs palliative care but patient not interested Supervisory-Addendum Brief Verification & Attestation Participated in pt care: history, MDM, physical Personally performed: exam, history, MDM, supervision of care Care discussed with: Medical Student Procedures: n/a Results interpretation: Verified all documentation Verification and Attestation of Medical Student E/M Service A medical student performed and documented this service in my presence. I reviewed and verified all information documented by the medical student and made modifications to such information, when appropriate. I personally performed the physical exam and medical decision making. Melina Benjamin Feb 03, 2023,19:47 VIOLA REESE Feb 03, 2023 12:48 MELINA BENJAMIN DO Feb 03, 2023 19:49
--- NOTE | 2023-02-03 16:03 | Physical Therapy Daily Note ---
PT Daily Note-Current Subjective Patient lying supine in bed upon PT arrival, agreeable to treatment. Patient rates pain at 0/10. Pain Section J - Health Conditions 1. Rarely or not at all 2. Occasionally 3. Frequently 4. Almost constantly 8. Unable to answer Pain Effect on Sleep: 8 Pain Interference with Therapy: 8 Pain Interference w/Day-to-Day: 8 Transfers SCALE: Activities may be completed with or without assistive devices. 0-Grtoppafgj-iuavbmj completes the activity by him/herself with no assistance from a helper. 5-Set-up or Clean-up Assistance-helper sets up or cleans up; patient completes activity. [place] assists only prior to or following the activity. 4-Supervision or Touching Assistance-helper provides verbal cues and/or touching/steadying and/or contact guard assistance as patient completes activity. Assistance may be provided throughout the activity or intermittently. 3-Partial/Moderate Assistance-helper does LESS THAN HALF the effort. [place] lifts, holds or supports trunk or limbs, but provides less than half the effort. 2-Substantial/Maximal Assistance-helper does MORE THAN HALF the effort. [place] lifts or holds trunk or limbs and provides more than half the effort. 5-Pgcpwowao-rcztcd does ALL the effort. Patient does none of the effort to complete the activity. Or, the assistance of 2 or more helpers is required for the patient to complete the activity. If activity was not attempted, code reason: 7-Patient Refused. 9-Not Applicable-not attempted and the patient did not perform the activity before the current illness, exacerbation or injury. 10-Not Attempted due to Environmental Limitations-(lack of equipment, weather restraints, etc.). 88-Not Attempted due to Medical Conditions or Safety Concerns. Roll Left & Right (QC): 2 Sit to Lying (QC): 2 Lying to Sitting/Side of Bed(Q: 2 Sit to Stand (QC): 2 Chair/Wrm-xj-Kejhj Xfer(QC): 2 Weight Bearing Right Lower Extremity: Right Weight Bearing/Tolerated Left Lower Extremity: Left Weight Bearing/Tolerated Assessment Current Status: Poor Progress Patient requires max A for all bed mobility and transfers. Patient very drowsy and has difficulty staying awake. Patient in chair post treatment with all needs met, nursing notified, call light in hand. PT Curriculum Designer Goals Halfway Goals PT Halfway Goals Time Frame: Mar 06, 2023 Roll Left & Right (QC): 5 Sit to Lying (QC): 5 Lying-Sitting on Side/Bed(QC): 5 Sit to Stand (QC): 4 Chair/Tes-if-Gmlhr Xfer(QC): 4 Toilet Transfer (QC): 4 Car Transfer (QC): 4 Does the Patient Walk: Yes Walk 10 feet (QC): 4 Walk 50ft with 2 Turns (QC): 4 Walk 150 ft (QC): 4 1 Step (curb) (QC): 3 4 Steps (QC): 3 PT Plan Treatment/Plan Treatment Plan: Continue Plan of Care Treatment Plan: Bed Mobility, Education, Functional Activity Samy, Functional Strength, Group Therapy, Gait, Safety, Therapeutic Exercise, Transfers Treatment Duration: Mar 06, 2023 Frequency: 6 times per week Estimated Hrs Per Day: .25 hour per day Safety Risks/Education Patient Education: Transfer Techniques Teaching Recipient: Patient Teaching Methods: Demonstration, Discussion Response to Teaching: Reinforcement Needed Time Time In: 1039 Time Out: 1049 DATE: Feb 03, 2023 Total Billed Treatment Time: 10 Total Billed Treatment Visit, TRAVIS NOVA PT Feb 03, 2023 16:03
[2023-02-03] MEDS: ASPIRIN enteric coated 81MG TABLET PO SCH (20:56)
[2023-02-03] MEDS ORDERED: SERTRALINE 50 MG TABLET PO SCH (21:00)
[2023-02-04] MEDS: CEFEPIME INJECTION 1,000 MG in NS (IVPB) 50 ML 50 ML IV SCH ×2 (01:18→10:37)
[2023-02-04 03:42] VITALS: BP 160/65
[2023-02-04] MEDS: LEVOTHYROXINE 88 MCG TABLET PO SCH (05:00)
[2023-02-04] MEDS: ACETAMINOPHEN 325 MG TABLET PO PRN (06:55)
[2023-02-04] MEDS: RT-BUDESONIDE NEBS 0.5 MG/2ML VIAL IH SCH (06:59)
[2023-02-04 07:25] LABS: BASOPHILS # (AUTO) 0.1 10^3/uL (0.0-0.1); BASOPHILS % (AUTO) 1 % (0-10); EOSINOPHILS # (AUTO) 0.5 10^3/uL (0.0-0.3); EOSINOPHILS % (AUTO) 3 % (0-10); HEMATOCRIT 33 % (35-52); HEMOGLOBIN 10.4 g/dL (11.5-16.0); LYMPHOCYTES # (AUTO) 0.7 10^3/uL (1.0-4.0); LYMPHOCYTES % (AUTO) 5 % (12-44); MEAN CORPUSCULAR HEMOGLOBIN 29 pg (25-34); MEAN CORPUSCULAR HGB CONC 32 g/dL (32-36); MEAN CORPUSCULAR VOLUME 92 fL (80-99); MEAN PLATELET VOLUME 8.7 fL (9.0-12.2); MONOCYTES # (AUTO) 0.6 10^3/uL (0.0-1.0); MONOCYTES % (AUTO) 4 % (0-12); NEUTROPHILS # (AUTO) 12.8 10^3/uL (1.8-7.8); NEUTROPHILS % (AUTO) 86 % (42-75); PLATELET COUNT 376 10^3/uL (130-400); WHITE BLOOD COUNT 14.8 10^3/uL (4.3-11.0)
[2023-02-04 07:46] LABS: ALBUMIN 2.8 GM/DL (3.2-4.5); BILIRUBIN,TOTAL 0.7 MG/DL (0.1-1.0); CALCIUM 8.9 MG/DL (8.5-10.1); CREATININE SERUM 0.87 MG/DL (0.60-1.30); MAGNESIUM 1.9 MG/DL (1.6-2.4); POTASSIUM 4.1 MMOL/L (3.6-5.0)
[2023-02-04 08:10] LABS: ACANTHOCYTES SLIGHT; EOSINOPHILS % (MANUAL) 2 %; LYMPHOCYTES % (MANUAL) 3 %; MONOCYTES % (MANUAL) 7 %; NEUTROPHILS % (MANUAL) 88 %
[2023-02-04 08:11] LABS: BURR CELLS SLIGHT; PLATELET CLUMPS OCCASIONAL
[2023-02-04 08:12] VITALS: BP 157/65
--- NOTE | 2023-02-04 08:26 | Cardiology Progress Note ---
Subjective Date Seen by Provider: Feb 04, 2023 Time Seen by Provider: 08:25 Subjective/Events-last exam Patient was seen at bedside, laying down comfortably, complaining of fatigue and weakness Objective-Cardiology Exam Last Set of Vital Signs Vital Signs 01/29/23 02/04/23 16:00 08:12 Temp 35.8 Pulse 70 Resp 17 B/P (MAP) 157/65 (95) Pulse Ox 92 O2 Delivery Nasal Cannula O2 Flow Rate 3.00 FiO2 21 I&O l Intake and Output 02/04/23 00:00 Intake Total 2125 ml Output Total 1150 ml Balance 975 ml Intake Oral 1825 ml IV Total 300 ml Output Urine Total 1150 ml # Voids 4 General: Alert, Oriented X3, Cooperative, No Acute Distress HEENT: Atraumatic, PERRLA, EOMI, Mucous Memb Moist/[place] Neck: Supple Lungs: Clear to Auscultation, Normal Air Movement Heart: Regular Rate, Normal S1, Normal S2, No Murmurs Abdomen: Normal Bowel Sounds Extremities: No Clubbing, No Cyanosis Skin: No Rashes, No Breakdown Neuro: Normal Speech Psych/Mental Status: Mental Status NL, Mood NL Results Lab Laboratory Tests 02/04/23 06:49 A/P-Cardiology Admission Diagnosis Anemia Syncope Paroxysmal atrial fibrillation Hypertension Assessment/Plan Anemia, syncope. Status post EGD and colonoscopy done by Dr. Tracy Continue to monitor H&H GI bleed Status post miller endoscopy showing severe gastritis, hiatal hernia and esophageal stricture and sigmoid diverticulosis. No active bleeding was reported during scope Currently oral anticoagulation on hold. Continue to monitor Acute on chronic diastolic CHF - MPI of 09-22-2022 showed no evidence of ischemia or infarction. No regional wall motion abnormality. MPI 56% - clinically improving ; shortness of breath significantly improved Pneumonis, management per medical services SSS and PAF - S/P ILR implant 03-01-[address] Garnica - OAC with Xarelto -holding due to severe anemia - EP consult with Dr. Miller who has advised continued medical management, recommended starting Flecainide or Amiodarone per last note in Jul 2022. - ECG on 10-14-22: NSR with LBBB and PACs - Recurrent A Fib for which she underwent cardioversion on 11/16/[address] Green - was started on Flecainide 100mg BID - a-fib with RVR on EKG of 12-10-22. Flecainide d/c'd, amiodarone initiated on 12-11-22 - ext elec CV to sinus rhythm on 12-14-22 Hypothyroidism,treated with thyroid replacement therapy. Managed by PCP Hypertension, stable Carotid art disease, history of s/p R CEA by Dr Adams on 05/26/21 at [place] Mild bilat dz per u/s of 09-10-2021 Mitral regurg and mild pulm htn - Echocardiogram of 12-04-[address] Garnica showed LVEF 55-65%. LA mildly dilated. Mod to severe MR. PASP 40-45 mmHg - Echocardiogram of 09-02-20 showed LVEF 55-60%. Grade 1 diastolic dysfunction. Mild MR. AoV sclerosis with mild regurg. PASP 40-45 mmHg - sleep studies by Dr. Brown on 02-14-21 did not indicate sleep apnea - a-fib s een during the test - Echo of 12-11-22: LVEF 55-60%, mod to sev enlargement of LA, mild enlargement of RA, mild to mod MR, triv AI, L pleural eff, PASP 45-50 mmHg COPD with nocturnal hypoxemia Extobaccoism Chronic, bilateral leg swelling, likely related to venous insuff Chronic scoliosis and degenerative cervical spinal disease (chronically stiff neck and shoulders) RITO GREEN MD Feb 04, 2023 08:26
[2023-02-04] MEDS: POTASSIUM CHLORIDE 20 MEQ TABLET PO SCH (08:45)
[2023-02-04] MEDS: DOCUSATE SODIUM 100 MG CAPSULE PO SCH ×2 (08:46→08:49)
[2023-02-04] MEDS: SENNOSIDES 8.6 MG TABLET PO SCH ×2 (08:46→08:49)
[2023-02-04] MEDS: PANTOPRAZOLE 40 MG TABLET PO SCH (08:46)
[2023-02-04] MEDS ORDERED: AZITHROMYCIN 250 MG TABLET PO SCH (09:00)
--- NOTE | 2023-02-04 10:16 | Physical Therapy Daily Note ---
PT Daily Note-Current Subjective Patient reluctantly agrees to therapy. Pain Section J - Health Conditions 1. Rarely or not at all 2. Occasionally 3. Frequently 4. Almost constantly 8. Unable to answer Pain Effect on Sleep: 8 Pain Interference with Therapy: 8 Pain Interference w/Day-to-Day: 8 Mental Status Attachments: Oxygen Transfers SCALE: Activities may be completed with or without assistive devices. 8-Aqsbzqlzfn-hdnsmjl completes the activity by him/herself with no assistance from a helper. 5-Set-up or Clean-up Assistance-helper sets up or cleans up; patient completes activity. [place] assists only prior to or following the activity. 4-Supervision or Touching Assistance-helper provides verbal cues and/or touching/steadying and/or contact guard assistance as patient completes activity. Assistance may be provided throughout the activity or intermittently. 3-Partial/Moderate Assistance-helper does LESS THAN HALF the effort. [place] lift s, holds or supports trunk or limbs, but provides less than half the effort. 2-Substantial/Maximal Assistance-helper does MORE THAN HALF the effort. [place] lifts or holds trunk or limbs and provides more than half the effort. 4-Kckjllvmc-wcfsyl does ALL the effort. Patient does none of the effort to complete the activity. Or, the assistance of 2 or more helpers is required for the patient to complete the activity. If activity was not attempted, code reason: 7-Patient Refused. 9-Not Applicable-not attempted and the patient did not perform the activity before the current illness, exacerbation or injury. 10-Not Attempted due to Environmental Limitations-(lack of equipment, weather restraints, etc.). 88-Not Attempted due to Medical Conditions or Safety Concerns. Lying to Sitting/Side of Bed(Q: 2 Sit to Stand (QC): 2 Chair/Pqt-or-Nkqtu Xfer(QC): 2 Toilet Transfer (QC): 2 Weight Bearing Right Lower Extremity: Right Weight Bearing/Tolerated Left Lower Extremity: Left Weight Bearing/Tolerated Gait Training Distance: 15' x 2 Walk 10 feet (QC): 2 Gait Assistive Device: FWW very unsteady, forward lean with PT correct Assessment Patient required continuous VC's for body placement in FWW and for posture. Patient is very delayed with all responses and becomes slightly agitated when asked to perform OOB activities. PT [facility] Goals Insurance Marketing Specialist Goals PT Insurance Marketing Specialist Goals Time Frame: Mar 06, 2023 Roll Left & Right (QC): 5 Sit to Lying (QC): 5 Lying-Sitting on Side/Bed(QC): 5 Sit to Stand (QC): 4 Chair/Apr-jx-Lupww Xfer(QC): 4 Toilet Transfer (QC): 4 Car Transfer (QC): 4 Does the Patient Walk: Yes Walk 10 feet (QC): 4 Walk 50ft with 2 Turns (QC): 4 Walk 150 ft (QC): 4 1 Step (curb) (QC): 3 4 Steps (QC): 3 PT Plan Treatment/Plan Treatment Plan: Continue Plan of Care Treatment Plan: Bed Mobility, Education, Functional Activity Samy, Functional Strength, Group Therapy, Gait, Safety, Therapeutic Exercise, Transfers Treatment Duration: Mar 06, 2023 Frequency: 6 times per week Estimated Hrs Per Day: .25 hour per day Time Time In: 855 Time Out: 918 DATE: Feb 04, 2023 Total Billed Treatment Time: 23 Total Billed Treatment 1 visit GT x 2 23 min MIRIAM JEWELL PT Feb 04, 2023 10:16
--- NOTE | 2023-02-04 10:19 | Occupational Ther Daily Note ---
OT Current Status-Daily Note Subjective C/O food and choices of food, reports only having an ENSURE, Patient is strongly encouraged to be out of bed for meals and sitting in a chair. Linens and gown are saturated. OT prepares for change of linen and new gown Mental Status/Objective Patient Orientation: Person, Place, Time ADL-Treatment Patient sittinfg EOB w/ feet on floor, socks on. Patient instructed 1-2 step sequence commands to remove gown and replace wiht new gown, Patient required moderate assist as does not complete tacks and sits with hands in lap and closes her eyes. She reports she can hear instruction provided however does something completely different than instructed or offers an answer pertaining to nothing being discussed.Patient exhibits greater energy reisiting therapy than energy exited to perform tasks Therapy Code Descriptions/Definitions Functional [place] Measure: 0=Not Assessed/NA 4=Minimal Assistance 1=Total Assistance 5=Supervision or Setup 2=Maximal Assistance 6=Modified [place] 3=Moderate Assistance 7=Complete IndependenceSCALE: Activities may be completed with or without assistive devices. 2-Hhtfmlwzkl-ndhsvyp completes the activity by him/herself with no assistance from a helper. 5-Set-up or Clean-up Assistance-helper sets up or cleans up; patient completes activity. [place] assists only prior to or following the activity. 4-Supervision or Touching Assistance-helper provides verbal cues and/or touching/steadying and/or contact guard assistance as patient completes activity. Assistance may be provided throughout the activity or intermittently. 3-Partial/Moderate Assistance-helper does LESS THAN HALF the effort. [place] lifts, holds or supports trunk or limbs, but provides less than half the effort. 2-Substantial/Maximal Assistance-helper does MORE THAN HALF the effort. [place] lifts or holds trunk or limbs and provides more than half the effort. 3-Rptrgnccj-dktgqc does ALL the effort. Patient does none of the effort to complete the activity. Or, the assistance of 2 or more helpers is required for the patient to complete the activity. If activity was not attempted, code reason: 7-Patient Refused. 9-Not Applicable-not attempted and the patient did not perform the activity before the current illness, exacerbation or injury. 10-Not Attempted due to Environmental Limitations-(lack of equipment, weather restraints, etc.). 88-Not Attempted due to Medical Conditions or Safety Concerns. Eating (QC): 6 Oral Hygiene (QC): 5 Upper Body Dressing (QC): 3 Lower Body Dressing (QC): 1 On/Off Footwear: 1 Toileting Hygiene (QC): 2 Toilet Transfer (QC): 1 Education OT Patient Education: Correct positioning, Exercise program, Modified ADL techniques, Progress toward Goal/Update tx plan, Purpose of tx/functional activities, Reviewed precautions, Rehab process, Safety issues, Transfer techniques, Use of adapted equipment Teaching Recipient: Patient Teaching Methods: Demonstration Response to Teaching: Verbalize Understanding, Return Demonstration OT Care Home Goals [place] Goals Time Frame: Feb 08, 2023 Eating (QC): 6 Oral Hygiene (QC): 6 Toileting Hygiene (QC): 4 Shower/Bathe Self (QC): 4 Upper Body Dressing (QC): 5 Lower Body Dressing (QC): 4 On/Off Footwear (QC): 4 1=Demonstrate adherence to instructed precautions during ADL tasks. 2=Patient will verbalize/demonstrate understanding of assistive devices/modifications for ADL. 3=Patient will improve strength/tolerance for activity to enable patient to perform ADL's. OT Education/Plan Problem List/Assessment Assessment: Decreased Activ Tolerance, Decreased Safety Aware, Decreased UE Strength, Impaired Bed Mobility, Impaired Cognition, Impaired Coordination, Impaired Funct Balance, Impaired I ADL's, Restricted Funct UE ROM Discharge Recommendations Plan/Recommendations: Continue POC Therapy Discharge Recommendati: Post Acute OT Barriers to Progress cognition, problem solving Treatment Plan/Plan of Care Treatment,Training & Education: Yes Patient would benefit from OT for education, treatment and training to promote independence in ADL's, mobility, safety and/or upper extremity function for ADL's. Plan of Care: ADL Retraining, Cognitive Retraining, Concurrent Therapy, Functional Mobility, Group Exercise/Act as Ind, UE Funct Exercise/Act Treatment Duration: Feb 08, 2023 Frequency: 3 times per week (3-5 times per week) Estimated Hrs Per Day: .25 hour per day Agreement: Yes Rehab Potential: Fair Time Start Time: 08:52 Stop Time: 09:21 DATE: Feb 04, 2023 Total Time Billed (hr/min): 29 Billed Treatment Time ADL 2, 29 min FELICIANO JOHNSON OT Feb 04, 2023 10:19
[2023-02-04] MEDS: BETHANECHOL 25 MG TABLET PO SCH (10:37)
[2023-02-04] MEDS ORDERED: LEVO75TA PO (11:58)
[2023-02-04] MEDS ORDERED: BUDE0.5A IH (11:58)
[2023-02-04] MEDS ORDERED: IPRA3AMP31 IH (11:58)
[2023-02-04] MEDS ORDERED: CHOL20002 PO (11:58)
[2023-02-04] MEDS ORDERED: CYAN500T8 PO (11:58)
[2023-02-04] MEDS ORDERED: ATOR20TA66 PO (11:58)
[2023-02-04] MEDS ORDERED: ACET325T38 PO (11:58)
[2023-02-04] MEDS ORDERED: POLY17PO6 PO (11:58)
[2023-02-04] MEDS ORDERED: BIFI10.52 PO (11:58)
[2023-02-04] MEDS ORDERED: POTA-169 PO (11:58)
[2023-02-04] MEDS ORDERED: FORM20VI3 IH (11:58)
[2023-02-04] MEDS ORDERED: FURO-124 PO (11:58)
[2023-02-04] MEDS ORDERED: ASPI-1238 PO (11:58)
[2023-02-04] MEDS ORDERED: RT-ALBUINH INH (11:58)
[2023-02-04] MEDS ORDERED: PANT40TA52 PO (11:58)
[2023-02-04] MEDS ORDERED: SERT-412 PO (11:58)
[2023-02-04] MEDS ORDERED: LEVO88TA2 PO (11:58)
[2023-02-04] MEDS ORDERED: BETH25TA2 PO (11:58)
[2023-02-04] MEDS ORDERED: DOCU-143 PO (11:58)
--- NOTE | 2023-02-04 12:00 | Discharge Inst-Skilled Nursing ---
Discharge Inst-Skilled NF Reconcile Patient Problems Problems Reviewed?: Yes Chief Complaint Chief complaint: Hypovolemic shock HPI: This is an 83-year-old female long term patient of Dr. Poole known to me from prior hospital stays which include A-fib with RVR and respiratory failure with pneumonia and congestive heart failure who presented due to dizziness and weakness and near syncope found to have hemoglobin of 7.4 consistent with acute blood loss. NSTEMI was diagnosed cardiology consulted and I did confer with general surgery who will be monitoring for need of EGD and colonoscopy. We will hold anticoagulation and aspirin. Patient Instructions Patient Problems: GIB Anemia AF COPD PNA Consult/Follow Up/Orders Follow Up Appt.: PCP NM rounds Skilled NF Admit to: [facility] ([facility]) I certify that [facility] services are required to be given on an inpatient basis because of the above named patient's need for residential care on a con tinuing basis for the conditions(s) for which he/she was receiving inpatient hospital services prior to his/her transfer to the SNF. Long Term Facility Order: Nursing Services, Industrial Refrigeration Mechanic-Evaluate & Treat, Physical Therapy-Evaluate & Treat Oxygen Delivery Method: Nasal Cannula Discharge Diet: No Restrictions Resuscitation Status: Full Code New & Resume Previous Orders New Medications: Pantoprazole Sodium (Pantoprazole Sodium) 40 Mg Tablet.dr 40 MG PO BID, #60 TAB Changed Medications: Furosemide (Lasix) 40 Mg Tablet 20 MG PO Q48H, #30 TAB (Changed from: 40 MG; DAILY) Continued Medications: Acetaminophen (Tylenol) 325 Mg Tablet 325 MG PO Q4H PRN for PAIN-MILD (1-4), #30 TAB (This prescription has been renewed) Albuterol Sulfate (Ventolin Hfa) 1 Puff Puff 2 PUFF INH Q4H PRN for SHORTNESS OF BREATH, #1 EA (This prescription has been renewed) Aspirin (Aspirin EC) 81 Mg Tablet.dr 81 MG PO HS, #30 TAB (This prescription has been renewed) Atorvastatin Calcium (Atorvastatin Calcium) 20 Mg Tablet 20 MG PO HS, #30 TAB (This prescription has been renewed) Bethanechol Chloride (Bethanechol Chloride) 25 Mg Tablet 25 MG PO Q12H, #60 TAB (This prescription has been renewed) Bifidobacterium Infantis (Align Jr) 10.5 Mg (10 Million Cell) Tab.chew 10.5 MG PO HS, #20 TAB (This prescription has been renewed) Budesonide (Budesonide) 0.5 Mg/2 Ml Ampul.neb 0.5 MG IH Q12H, #60 EA (This prescription has been renewed) Cholecalciferol (Vitamin D3) (Vitamin D3) 50 Mcg (2000 Unit) Capsule 50 MCG PO DAILY, #30 CAP (This prescription has been renewed) Cyanocobalamin (Vitamin B-12) (Vitamin B-12) 500 Mcg Tablet 500 MCG PO HS, #30 TAB (This prescription has been renewed) Docusate Sodium (Colace) 100 Mg Capsule 100 MG PO DAILY, #30 CAP (This prescription has been renewed) Formoterol Fumarate (Formoterol Fumarate) 20 Mcg/2 Ml Vial.neb 20 MCG IH Q12H, #1 EA (This prescription has been renewed) Ipratropium/Albuterol Sulfate (Iprat-Albut 0.5-3(2.5) mg/3 ml) 0.5 Mg-3 Mg (2.5 Mg Base)/3 Ml Ampul.neb 3 ML IH Q4H PRN for SHORTNESS OF BREATH, #30 EACH (This prescription has been renewed) Levothyroxine Sodium (Synthroid) 75 Mcg Tablet 75 MCG PO ,,, #30 TAB (This prescription has been renewed) Levothyroxine Sodium (Synthroid) 88 Mcg Tablet 88 MCG PO ,,,SA, #30 TAB (This prescription has been renewed) Polyethylene Glycol 3350 (Miralax) 17 Gram Powd.pack 17 GM PO DAILY, #30 EACH (This prescription has been renewed) Potassium Chloride (Klor-Con M20) 20 Meq Tab.er.prt 20 MEQ PO DAILY, #30 EACH (This prescription has been renewed) Sertraline HCl (Sertraline HCl) 25 Mg Tablet 12.5 MG PO HS, #30 TAB (This prescription has been renewed) Discontinued Medications: Amiodarone HCl (Amiodarone HCl) 400 Mg Tablet 400 MG PO Q12H, TAB Prednisone (Prednisone) 20 Mg Tab 20 MG PO DAILY, TAB Take 3 tabs(60mg)daily, decrease by 1/2 tab(10mg)daily. Rivaroxaban (Xarelto Tablet) 15 Mg Tablet 15 MG PO 1800, #30 TAB Melina Benjamin Feb 04, 2023 11:59 MELINA BENJAMIN DO Feb 04, 2023 12:00
--- NOTE | 2023-02-04 12:05 | Discharge Summary ---
Diagnosis/Chief Complaint Date of Admission Jan 29, 2023 at 14:10 Date of Discharge Discharge Date: Feb 04, 2023 Discharge Diagnosis Assessment: Hypovolemic shock & suspected GI bleed on anticoagulant Facility acquired pneumonia on IV antibiotics Symptomatic anemia causing syncope Severe anemia requiring 1 PRBC Hx of hypercapnic respiratory failure requiring BiPAP Chronic lower extremity edema COPD Afib w/ RVR hx status post cardioconversion Hypothyroidism Anxiety HTN Discharge Summary Discharge Physical Examination Allergies: Coded Allergies: codeine (Unverified Allergy, Mild, Vomiting, 02/18/22) adhesive tape (Unverified Allergy, Unknown, 02/18/22) amoxicillin (Unverified Allergy, Unknown, 02/01/23) PT HAS TOLERATED CEPHALOSPORINS IN PAST (ROCEPHIN, CEFEPIME, CEFDINIR) Vitals & I&Os Vital Signs Date Time Temp Pulse Resp B/P (MAP) Pulse Ox O2 Delivery O2 Flow Rate FiO2 02/04/23 12:36 36.0 65 18 100/55 (70) 94 Nasal Cannula 2.50 General Appearance: Alert, Oriented X3, Cooperative Respiratory: Clear to Auscultation Cardiovascular: Regular Rate Psych/Mental Status: Mental Status NL Hospital Course Was the Problem List Reviewed?: Yes Hospital course: 83-year-old female with previous hospital stays of Afib with RVR & respiratory failure with pneumonia & CHF presented to the ED with dizziness, near syncope, and found to have a Hgb of 7.4 with acute blood loss. Patient was admitted to ICU on 01/29/23 with hypovolemic shock with suspected GI bleed on anticoagulation. She was found to have an NSTEMI and an EGD & colonoscopy showed reflux esophagitis with mild distal esophageal stricture, moderate-severe gastritis, and moderate sigmoid diverticulosis. During her stay, anticoagulation and aspirin were put on hold due to active bleed and her Hgb was treated with 1 PRBC & iron sucrose injection (200 mg). On 01/29/23, CXR showed a new right upper lobe consolidation and was diagnosed with facility acquired pneumonia and placed on IV azithromycin (500 mg) & IV cefepime (1,000 mg). After patient stabilized, she was moved to [facility] where she made a slow recovery and was able to get better, but was still experiencing weakness. No other complications occurred and patient's Hgb was 10.4 on the day of discharge. She was started on 2 dose of azithromycin (250 mg, daily, PO) and was discharged on 02/04/23. VIOLA REESE Labs (last 24 hrs) Laboratory Tests 01/29/23 11:50: White Blood Count 14.3H, Red Blood Count 2.64L, Hemoglobin 7.6L, Hematocrit 23L, Mean Corpuscular Volume 89, Mean Corpuscular Hemoglobin 29, Mean Corpuscular Hemoglobin Concent 33, Red Cell Distribution Width 17.2H, Platelet Count 421H, Mean Platelet Volume 8.7L, Immature Granulocyte % (Auto) 1, Neutrophils (%) (Auto) 86H, Lymphocytes (%) (Auto) 8L, Monocytes (%) (Auto) 4, Eosinophils (%) (Auto) 1, Basophils (%) (Auto) 0, Neutrophils # (Auto) 12.3H, Lymphocytes # (Auto) 1.1, Monocytes # (Auto) 0.6, Eosinophils # (Auto) 0.1, Basophils # (Auto) 0.0, Immature Granulocyte # (Auto) 0.2H, Neutrophils % (Manual) 91, Lymphocytes % (Manual) 3, Monocytes % (Manual) 4, Eosinophils % (Manual) 1, Myelocytes % 1, Clumped Platelets OCCASIONAL, Anisocytosis SLIGHT, [place] Cells MODERATE, Acanthocytes MODERATE, Schistocytes SLIGHT, Erythrocyte Sedimentation Rate 63H, Prothrombin Time 23.0H, INR Comment 2.0H, Activated Partial Thromboplast Time 35, D-Dimer 0.34, Sodium Level 140, Potassium Level 3.2L, Chloride Level 100, Carbon Dioxide Level 33H, Anion Gap 7, Blood Urea Nitrogen 33H, Creatinine 1.44H , Estimat Glomerular Filtration Rate 36, BUN/Creatinine Ratio 23, Glucose Level 115H, Calcium Level 8.4L, Corrected Calcium 9.1, Magnesium Level 2.0, Iron Level 26L, Total Bilirubin 0.6, Aspartate Amino Transf (AST/SGOT) 20, Alanine Aminotransferase (ALT/SGPT) 35, Alkaline Phosphatase 59, Total Creatine Kinase 28L, Creatine Kinase MB 2.9, Myoglobin 56.3, Troponin I 0.031H, C-Reactive Protein High Sensitivity 4.93H, B-Type Natriuretic Peptide 150.4H, Total Protein 5.8L, Albumin 3.1L, Vitamin B12 Level >2000H 01/29/23 12:17: Urine Color YELLOW, Urine Clarity CLEAR, Urine pH 5.5, Urine Specific [place] 1.020, Urine Protein 1+H, Urine Glucose (UA) NEGATIVE, Urine Ketones NEGATIVE, Urine Nitrite NEGATIVE, Urine Bilirubin 1+H, Urine Urobilinogen 1.0, Urine Leukocyte Esterase NEGATIVE, Urine RBC (Auto) NEGATIVE, Urine RBC RARE, Urine WBC 0-2, Urine Squamous Epithelial Cells 5-10, Urine Crystals PRESENTH, Urine Amorphous Sediment MOD ESTEFANI URATESH, Urine Bacteria NEGATIVE, Urine Casts PRESENT, Urine Hyaline Casts 10-25H, Urine Mucus NEGATIVE, Urine Culture Indicated NO 01/30/23 04:18: White Blood Count 11.9H, Red Blood Count 2.89L, Hemoglobin 8.3L, Hematocrit 26L, Mean Corpuscular Volume 89, Mean Corpuscular Hemoglobin 29, Mean Corpuscular Hemoglobin Concent 32, Red Cell Distribution Width 16.0H, Platelet Count 286, Mean Platelet Volume 8.7L, Immature Granulocyte % (Auto) 2, Neutrophils (%) (Auto) 84H, Lymphocytes (%) (Auto) 6L, Monocytes (%) (Auto) 5, Eosinophils (%) (Auto) 2, Basophils (%) (Auto) 0, Neutrophils # (Auto) 10.0H, Lymphocytes # (Auto) 0.7L, Monocytes # (Auto) 0.6, Eosinophils # (Auto) 0.3, Basophils # (Auto) 0.1, Immature Granulocyte # (Auto) 0.2H, Sodium Level 139, Potassium Level 2.9L, Chloride Level 105, Carbon Dioxide Level 25, Anion Gap 9, Blood Urea Nitrogen 21H, Creatinine 0.95, Estimat Glomerular Filtration Rate 59, BUN/Creatinine Ratio 22, Glucose Level 79, Calcium Level 7.5L, Corrected Calcium 8.6, Magnesium Level 1.7, Total Bilirubin 1.1H, Aspartate Amino Transf (AST/SGOT) 22, Alanine Aminotransferase (ALT/SGPT) 30, Alkaline Phosphatase 53, Total Protein 4.9L, Albumin 2.6L, Phosphorus Level 2.6 01/30/23 19:05: Stool Occult Blood Immunoassay POSITIVEH 01/30/23 20:17: Sodium Level 136, Potassium Level 4.3, Chloride Level 102, Carbon Dioxide Level 25, Anion Gap 9, Blood Urea Nitrogen 17, Creatinine 0.84, Estimat Glomerular Filtration Rate 69, BUN/Creatinine Ratio 20, Glucose Level 94, Calcium Level 7.9L 01/31/23 03:39: Sodium Level 139, Potassium Level 3.6, Chloride Level 102, Carbon Dioxide Level 29, Anion Gap 8, Blood Urea Nitrogen 12, Creatinine 0.79, Estimat Glomerular Filtration Rate 74, BUN/Creatinine Ratio 15, Glucose Level 91, Calcium Level 7.7L, White Blood Count 11.6H, Red Blood Count 3.03L, Hemoglobin 8.8L, Hematocrit 27L, Mean Corpuscular Volume 89, Mean Corpuscular Hemoglobin 29, Mean Corpuscular Hemoglobin Concent 33, Red Cell Distribution Width 16.4H, Platelet Count 307, Mean Platelet Volume 8.9L, Immature Granulocyte % (Auto) 1, Neutrophils (%) (Auto) 87H, Lymphocytes (%) (Auto) 5L, Monocytes (%) (Auto) 4, Eosinophils (%) (Auto) 3, Basophils (%) (Auto) 1, Neutrophils # (Auto) 10.1H, Lymphocytes # (Auto) 0.5L, Monocytes # (Auto) 0.5, Eosinophils # (Auto) 0.3, Basophils # (Auto) 0.1, Immature Granulocyte # (Auto) 0.1, Corrected Calcium 8.8, Phosphorus Level 2.0L, Magnesium Level 2.7H, Total Bilirubin 0.8, Aspartate Amino Transf (AST/SGOT) 21, Alanine Aminotransferase (ALT/SGPT) 25, Alkaline Phosphatase 57, Total Protein 5.2L, Albumin 2.6L 02/01/23 04:35: Sodium Level 136, Potassium Level 3.3L, Chloride Level 101, Carbon Dioxide Level 28, Anion Gap 7, Blood Urea Nitrogen 9, Creatinine 0.83, Estimat Glomerular Filtration Rate 70, BUN/Creatinine Ratio 11, Glucose Level 99, Calcium Level 8.2L, White Blood Count 16.4H, Red Blood Count 3.28L, Hemoglobin 9.6L, Hematocrit 30L, Mean Corpuscular Volume 91, Mean Corpuscular Hemoglobin 29, Mean Corpuscular Hemoglobin Concent 32, Red Cell Distribution Width 16.6H, Platelet Count 312, Mean Platelet Volume 8.4L, Immature Granulocyte % (Auto) 1, Neutrophils (%) (Auto) 88H, Lymphocytes (%) (Auto) 4L, Monocytes (%) (Auto) 4, Eosinophils (%) (Auto) 2, Basophils (%) (Auto) 1, Neutrophils # (Auto) 14.5H, Lymphocytes # (Auto) 0.7L, Monocytes # (Auto) 0.7, Eosinophils # (Auto) 0.4H, Basophils # (Auto) 0.1, Immature Granulocyte # (Auto) 0.2H, Corrected Calcium 9.3, Phosphorus Level 2.4, Magnesium Level 2.4, Total Bilirubin 0.7, Aspartate Amino Transf (AST/SGOT) 22, Alanine Aminotransferase (ALT/SGPT) 23, Alkaline Phosphatase 62, Total Protein 5.3L, Albumin 2.6L 02/01/23 13:02: Lab Scanned Report Transfusion Reaction Form 02/02/23 03:00: White Blood Count 16.1H, Red Blood Count 2.97L, Hemoglobin 8.7L, Hematocrit 27L, Mean Corpuscular Volume 91, Mean Corpuscular Hemoglobin 29, Mean Corpuscular Hemoglobin Concent 32, Red Cell Distribution Width 16.3H, Platelet Count 297, Mean Platelet Volume 8.3L, Immature Granulocyte % (Auto) 1, Neutrophils (%) (Auto) 90H, Lymphocytes (%) (Auto) 3L, Monocytes (%) (Auto) 3, Eosinophils (%) (Auto) 3, Basophils (%) (Auto) 0, Neutrophils # (Auto) 14.4H, Lymphocytes # (Auto) 0.6L, Monocytes # (Auto) 0.5, Eosinophils # (Auto) 0.4H, Basophils # (Auto) 0.1, Immature Granulocyte # (Auto) 0.2H, Sodium Level 133L, Potassium Level 3.5L, Chloride Level 97L, Carbon Dioxide Level 30, Anion Gap 6, Blood Urea Nitrogen 12, Creatinine 0.82, Estimat Glomerular Filtration Rate 71, BUN/Creatinine Ratio 15, Glucose Level 88, Calcium Level 8.1L, Corrected Calcium 9.5, Phosphorus Level 2.8, Magnesium Level 1.9, Total Bilirubin 0.6, Aspartate Amino Transf (AST/SGOT) 24, Alanine Aminotransferase (ALT/SGPT) 22, Alkaline Phosphatase 64, Total Protein 4.9L, Albumin 2.3L 02/03/23 05:50: White Blood Count 14.1H, Red Blood Count 2.97L, Hemoglobin 8.8L, Hematocrit 27L, Mean Corpuscular Volume 91, Mean Corpuscular Hemoglobin 30, Mean Corpuscular Hemoglobin Concent 33, Red Cell Distribution Width 16.7H, Platelet Count 318, Mean Platelet Volume 8.7L, Immature Granulocyte % (Auto) 1, Neutrophils (%) (Auto) 88H, Lymphocytes (%) (Auto) 4L, Monocytes (%) (Auto) 3, Eosinophils (%) (Auto) 3, Basophils (%) (Auto) 1, Neutrophils # (Auto) 12.4H, Lymphocytes # (Auto) 0.6L, Monocytes # (Auto) 0.5, Eosinophils # (Auto) 0.4H, Basophils # (Auto) 0.1, Immature Granulocyte # (Auto) 0.1, Sodium Level 133L, Potassium Level 3.9, Chloride Level 98, Carbon Dioxide Level 28, Anion Gap 7, Blood Urea Nitrogen 15, Creatinine 0.89, Estimat Glomerular Filtration Rate 64, BUN/Creatinine Ratio 17, Glucose Level 78, Calcium Level 8.3L, Corrected Calcium 9.7, Magnesium Level 2.1, Total Bilirubin 0.6, Aspartate Amino Transf (AST/SGOT) 19, Alanine Aminotransferase (ALT/SGPT) 20, Alkaline Phosphatase 79, Total Protein 4.7L, Albumin 2.3L 02/04/23 06:49: White Blood Count 14.8H, Red Blood Count 3.57L, Hemoglobin 10.4L, Hematocrit 33L , Mean Corpuscular Volume 92, Mean Corpuscular Hemoglobin 29, Mean Corpuscular Hemoglobin Concent 32, Red Cell Distribution Width 17.0H, Platelet Count 376, Mean Platelet Volume 8.7L, Immature Granulocyte % (Auto) 1, Neutrophils (%) (Auto) 86H, Lymphocytes (%) (Auto) 5L, Monocytes (%) (Auto) 4, Eosinophils (%) (Auto) 3, Basophils (%) (Auto) 1, Neutrophils # (Auto) 12.8H, Lymphocytes # (Auto) 0.7L, Monocytes # (Auto) 0.6, Eosinophils # (Auto) 0.5H, Basophils # (Auto) 0.1, Immature Granulocyte # (Auto) 0.2H, Sodium Level 133L, Potassium Level 4.1, Chloride Level 97L, Carbon Dioxide Level 26, Anion Gap 10, Blood Urea Nitrogen 14, Creatinine 0.87, Estimat Glomerular Filtration Rate 66, BUN/Creatinine Ratio 16, Glucose Level 70, Calcium Level 8.9, Corrected Calcium 9.9, Magnesium Level 1.9, Total Bilirubin 0.7, Aspartate Amino Transf (AST/SGOT) 27, Alanine Aminotransferase (ALT/SGPT) 26, Alkaline Phosphatase 99, Total Protein 6.0L, Albumin 2.8L, Neutrophils % (Manual) 88, Lymphocytes % (Manual) 3, Monocytes % (Manual) 7, Eosinophils % (Manual) 2, Clumped Platelets OCCASIONAL, Joe Cells SLIGHT, Acanthocytes SLIGHT Microbiology 02/01/23 Blood Culture - Preliminary, Resulted No growth 01/29/23 MRSA Screen - Final, Complete MRSA not isolated Pending Labs Microbiology Date/Time Source Procedure Growth Status 02/01/23 10:15 Peripheral Left Forearm Blood Culture - Preliminary No growth Resulted 02/01/23 09:58 Peripheral Lt Ac Blood Culture - Preliminary Staph, Coag Neg (HEAD BONE GRINDER) See Comments Resulted 01/29/23 16:10 Nasal MRSA Screen - Final MRSA not isolated Complete Laboratory Tests 01/29/23 11:50: White Blood Count 14.3, Red Blood Count 2.64, Hemoglobin 7.6, Hematocrit 23, Mean Corpuscular Volume 89, Mean Corpuscular Hemoglobin 29, Mean Corpuscular Hemoglobin Concent 33, Red Cell Distribution Width 17.2, Platelet Count 421, Mean Platelet Volume 8.7, Immature Granulocyte % (Auto) 1, Neutrophils (%) (Auto) 86, Lymphocytes (%) (Auto) 8, Monocytes (%) (Auto) 4, Eosinophils (%) (Auto) 1, Basophils (%) (Auto) 0, Neutrophils # (Auto) 12.3, Lymphocytes # (Auto) 1.1, Monocytes # (Auto) 0.6, Eosinophils # (Auto) 0.1, Basophils # (Auto) 0.0, Immature Granulocyte # (Auto) 0.2, Neutrophils % (Manual) 91, Lymphocytes % (Manual) 3, Monocytes % (Manual) 4, Eosinophils % (Manual) 1, Myelocytes % 1, Clumped Platelets OCCASIONAL, Anisocytosis SLIGHT, Joe Cells MODERATE, Acanthocytes MODERATE, Schistocytes SLIGHT, Erythrocyte Sedimentation Rate 63, Prothrombin Time 23.0, INR Comment 2.0, Activated Partial Thromboplast Time 35, D-Dimer 0.34, Sodium Level 140, Potassium Level 3.2, Chloride Level 100, Carbon Dioxide Level 33, Anion Gap 7, Blood Urea Nitrogen 33, Creatinine 1.44, Estimat Glomerular Filtration Rate 36, BUN/Creatinine Ratio 23, Glucose Level 115, Calcium Level 8.4, Corrected Calcium 9.1, Magnesium Level 2.0, Iron Level 26, Total Bilirubin 0.6, Aspartate Amino Transf (AST/SGOT) 20, Alanine Aminotransferase (ALT/SGPT) 35, Alkaline Phosphatase 59, Total Creatine Kinase 28, Creatine Kinase MB 2.9, Myoglobin 56.3, Troponin I 0.031, C-Reactive Protein High Sensitivity 4.93, B-Type Natriuretic Peptide 150.4, Total Protein 5.8, Albumin 3.1, Vitamin B12 Level >2000 01/29/23 12:17: Urine Color YELLOW, Urine Clarity CLEAR, Urine pH 5.5, Urine Specific [place] 1.020, Urine Protein 1+, Urine Glucose (UA) NEGATIVE, Urine Ketones NEGATIVE, Urine Nitrite NEGATIVE, Urine Bilirubin 1+, Urine Urobilinogen 1.0, Urine Leukocyte Esterase NEGATIVE, Urine RBC (Auto) NEGATIVE, Urine RBC RARE, Urine WBC 0-2, Urine Squamous Epithelial Cells 5-10, Urine Crystals PRESENT, Urine Amorphous Sediment MOD ESTEFANI URATES, Urine Bacteria NEGATIVE, Urine Casts PRESENT, Urine Hyaline Casts 10-25, Urine Mucus NEGATIVE, Urine Culture Indicated NO 01/30/23 04:18: White Blood Count 11.9, Red Blood Count 2.89, Hemoglobin 8.3, Hematocrit 26, Mean Corpuscular Volume 89, Mean Corpuscular Hemoglobin 29, Mean Corpuscular Hemoglobin Concent 32, Red Cell Distribution Width 16.0, Platelet Count 286, Mean Platelet Volume 8.7, Immature Granulocyte % (Auto) 2, Neutrophils (%) (Auto) 84, Lymphocytes (%) (Auto) 6, Monocytes (%) (Auto) 5, Eosinophils (%) (Auto) 2, Basophils (%) (Auto) 0, Neutrophils # (Auto) 10.0, Lymphocytes # (Auto) 0.7, Monocytes # (Auto) 0.6, Eosinophils # (Auto) 0.3, Basophils # (Auto) 0.1, Immature Granulocyte # (Auto) 0.2, Sodium Level 139, Potassium Level 2.9, Chloride Level 105, Carbon Dioxide Level 25, Anion Gap 9, Blood Urea Nitrogen 21, Creatinine 0.95, Estimat Glomerular Filtration Rate 59, BUN/Creatinine Ratio 22, Glucose Level 79, Calcium Level 7.5, Corrected Calcium 8.6, Magnesium Level 1.7, Total Bilirubin 1.1, Aspartate Amino Transf (AST/SGOT) 22, Alanine Aminotransferase (ALT/SGPT) 30, Alkaline Phosphatase 53, Total Protein 4.9, Albumin 2.6, Phosphorus Level 2.6 01/30/23 19:05: Stool Occult Blood Immunoassay POSITIVE 01/30/23 20:17: Sodium Level 136, Potassium Level 4.3, Chloride Level 102, Carbon Dioxide Level 25, Anion Gap 9, Blood Urea Nitrogen 17, Creatinine 0.84, Estimat Glomerular Filtration Rate 69, BUN/Creatinine Ratio 20, Glucose Level 94, Calcium Level 7.9 01/31/23 03:39: Sodium Level 139, Potassium Level 3.6, Chloride Level 102, Carbon Dioxide Level 29, Anion Gap 8, Blood Urea Nitrogen 12, Creatinine 0.79, Estimat Glomerular Filtration Rate 74, BUN/Creatinine Ratio 15, Glucose Level 91, Calcium Level 7.7, White Blood Count 11.6, Red Blood Count 3.03, Hemoglobin 8.8, Hematocrit 27, Mean Corpuscular Volume 89, Mean Corpuscular Hemoglobin 29, Mean Corpuscular Hemoglobin Concent 33, Red Cell Distribution Width 16.4, Platelet Count 307, Mean Platelet Volume 8.9, Immature Granulocyte % (Auto) 1, Neutrophils (%) (Auto) 87, Lymphocytes (%) (Auto) 5, Monocytes (%) (Auto) 4, Eosinophils (%) (Auto) 3, Basophils (%) (Auto) 1, Neutrophils # (Auto) 10.1, Lymphocytes # (Auto) 0.5, Monocytes # (Auto) 0.5, Eosinophils # (Auto) 0.3, Basophils # (Auto) 0.1, Immature Granulocyte # (Auto) 0.1, Corrected Calcium 8.8, Phosphorus Level 2.0, Magnesium Level 2.7, Total Bilirubin 0.8, Aspartate Amino Transf (AST/SGOT) 21, Alanine Aminotransferase (ALT/SGPT) 25, Alkaline Phosphatase 57, Total Protein 5.2, Albumin 2.6 02/01/23 04:35: Sodium Level 136, Potassium Level 3.3, Chloride Level 101, Carbon Dioxide Level 28, Anion Gap 7, Blood Urea Nitrogen 9, Creatinine 0.83, Estimat Glomerular Filtration Rate 70, BUN/Creatinine Ratio 11, Glucose Level 99, Calcium Level 8.2, White Blood Count 16.4, Red Blood Count 3.28, Hemoglobin 9.6, Hematocrit 30, Mean Corpuscular Volume 91, Mean Corpuscular Hemoglobin 29, Mean Corpuscular Hemoglobin Concent 32, Red Cell Distribution Width 16.6, Platelet Count 312, Mean Platelet Volume 8.4, Immature Granulocyte % (Auto) 1, Neutrophils (%) (Auto) 88, Lymphocytes (%) (Auto) 4, Monocytes (%) (Auto) 4, Eosinophils (%) (Auto) 2, Basophils (%) (Auto) 1, Neutrophils # (Auto) 14.5, Lymphocytes # (Auto) 0.7, Monocytes # (Auto) 0.7, Eosinophils # (Auto) 0.4, Basophils # (Auto) 0.1, Immature Granulocyte # (Auto) 0.2, Corrected Calcium 9.3, Phosphorus Level 2.4, Magnesium Level 2.4, Total Bilirubin 0.7, Aspartate Amino Transf (AST/SGOT) 22, Alanine Aminotransferase (ALT/SGPT) 23, Alkaline Phosphatase 62, Total Protein 5.3, Albumin 2.6 02/01/23 13:02: Lab Scanned Report Transfusion Reaction Form 02/02/23 03:00: White Blood Count 16.1, Red Blood Count 2.97, Hemoglobin 8.7, Hematocrit 27, Mean Corpuscular Volume 91, Mean Corpuscular Hemoglobin 29, Mean Corpuscular Hemoglobin Concent 32, Red Cell Distribution Width 16.3, Platelet Count 297, Mean Platelet Volume 8.3, Immature Granulocyte % (Auto) 1, Neutrophils (%) (Auto) 90, Lymphocytes (%) (Auto) 3, Monocytes (%) (Auto) 3, Eosinophils (%) (Auto) 3, Basophils (%) (Auto) 0, Neutrophils # (Auto) 14.4, Lymphocytes # (Auto) 0.6, Monocytes # (Auto) 0.5, Eosinophils # (Auto) 0.4, Basophils # (Auto) 0.1, Immature Granulocyte # (Auto) 0.2, Sodium Level 133, Potassium Level 3.5, Chloride Level 97, Carbon Dioxide Level 30, Anion Gap 6, Blood Urea Nitrogen 12, Creatinine 0.82, Estimat Glomerular Filtration Rate 71, BUN/Creatinine Ratio 15, Glucose Level 88, Calcium Level 8.1, Corrected Calcium 9.5, Phosphorus Level 2.8, Magnesium Level 1.9, Total Bilirubin 0.6, Aspartate Amino Transf (AST/SGOT) 24, Alanine Aminotransferase (ALT/SGPT) 22, Alkaline Phosphatase 64, Total Protein 4.9, Albumin 2.3 02/03/23 05:50: White Blood Count 14.1, Red Blood Count 2.97, Hemoglobin 8.8, Hematocrit 27, Mean Corpuscular Volume 91, Mean Corpuscular Hemoglobin 30, Mean Corpuscular Hemoglobin Concent 33, Red Cell Distribution Width 16.7, Platelet Count 318, Mean Platelet Volume 8.7, Immature Granulocyte % (Auto) 1, Neutrophils (%) (Auto) 88, Lymphocytes (%) (Auto) 4, Monocytes (%) (Auto) 3, Eosinophils (%) (Auto) 3, Basophils (%) (Auto) 1, Neutrophils # (Auto) 12.4, Lymphocytes # (Auto) 0.6, Monocytes # (Auto) 0.5, Eosinophils # (Auto) 0.4, Basophils # (Auto) 0.1, Immature Granulocyte # (Auto) 0.1, Sodium Level 133, Potassium Level 3.9, Chloride Level 98, Carbon Dioxide Level 28, Anion Gap 7, Blood Urea Nitrogen 15, Creatinine 0.89, Estimat Glomerular Filtration Rate 64, BUN/Creatinine Ratio 17, Glucose Level 78, Calcium Level 8.3, Corrected Calcium 9.7, Magnesium Level 2.1, Total Bilirubin 0.6, Aspartate Amino Transf (AST/SGOT) 19, Alanine Aminotransferase (ALT/SGPT) 20, Alkaline Phosphatase 79, Total Protein 4.7, Albumin 2.3 02/04/23 06:49: White Blood Count 14.8, Red Blood Count 3.57, Hemoglobin 10.4, Hematocrit 33, Mean Corpuscular Volume 92, Mean Corpuscular Hemoglobin 29, Mean Corpuscular Hemoglobin Concent 32, Red Cell Distribution Width 17.0, Platelet Count 376, Mean Platelet Volume 8.7, Immature Granulocyte % (Auto) 1, Neutrophils (%) (Auto) 86, Lymphocytes (%) (Auto) 5, Monocytes (%) (Auto) 4, Eosinophils (%) (Auto) 3, Basophils (%) (Auto) 1, Neutrophils # (Auto) 12.8, Lymphocytes # (Auto) 0.7, Monocytes # (Auto) 0.6, Eosinophils # (Auto) 0.5, Basophils # (Auto) 0.1, Immature Granulocyte # (Auto) 0.2, Sodium Level 133, Potassium Level 4.1, Chloride Level 97, Carbon Dioxide Level 26, Anion Gap 10, Blood Urea Nitrogen 14, Creatinine 0.87, Estimat Glomerular Filtration Rate 66, BUN/Creatinine Ratio 16, Glucose Level 70, Calcium Level 8.9, Corrected Calcium 9.9, Magnesium Level 1.9, Total Bilirubin 0.7, Aspartate Amino Transf (AST/SGOT) 27, Alanine Aminotransferase (ALT/SGPT) 26, Alkaline Phosphatase 99, Total Protein 6.0, Albumin 2.8, Neutrophils % (Manual) 88, Lymphocytes % (Manual) 3, Monocytes % (Manual) 7, Eosinophils % (Manual) 2, Clumped Platelets OCCASIONAL, [place] Cells SLIGHT, Acanthocytes SLIGHT Discharge Home Medications: Active Scripts Active Pantoprazole Sodium 40 Mg Tablet.dr 40 Mg PO BID Colace (Docusate Sodium) 100 Mg Capsule 100 Mg PO DAILY Iprat-Albut 0.5-3(2.5) mg/3 ml (Ipratropium/Albuterol Sulfate) 0.5 Mg-3 Mg (2.5 Mg Base)/3 Ml Ampul.neb 3 Ml IH Q4H PRN Bethanechol Chloride 25 Mg Tablet 25 Mg PO Q12H Align Jr (Bifidobacterium Infantis) 10.5 Mg (10 Million Cell) Tab.chew 10.5 Mg PO HS Klor-Con M20 (Potassium Chloride) 20 Meq Tab.er.prt 20 Meq PO DAILY Lasix (Furosemide) 40 Mg Tablet 20 Mg PO Q48H Ventolin Hfa (Albuterol Sulfate) 1 Puff Puff 2 Puff INH Q4H PRN Miralax (Polyethylene Glycol 3350) 17 Gram Powd.pack 17 Gm PO DAILY Formoterol Fumarate 20 Mcg/2 Ml Vial.neb 20 Mcg IH Q12H Budesonide 0.5 Mg/2 Ml Ampul.neb 0.5 Mg IH Q12H Synthroid (Levothyroxine Sodium) 88 Mcg Tablet 88 Mcg PO ,,,SA Sertraline HCl 25 Mg Tablet 12.5 Mg PO HS Synthroid (Levothyroxine Sodium) 75 Mcg Tablet 75 Mcg PO MO,WE,FR Atorvastatin Calcium 20 Mg Tablet 20 Mg PO HS Vitamin D3 (Cholecalciferol (Vitamin D3)) 50 Mcg (2000 Unit) Capsule 50 Mcg PO DAILY Aspirin EC (Aspirin) 81 Mg Tablet.dr 81 Mg PO HS Vitamin B-12 (Cyanocobalamin (Vitamin B-12)) 500 Mcg Tablet 500 Mcg PO HS Tylenol (Acetaminophen) 325 Mg Tablet 325 Mg PO Q4H PRN Instructions to patient/family Please see electronic discharge instructions given to patient. Clinical Quality Measures DVT/VTE Risk/Contraindication: Contraindications-Pharm: Other *list below* Other: ELVA GREGORY DO Feb 04, 2023 12:05
--- NOTE | 2023-02-04 12:08 | Progress Note ---
VIOLA REESE 02/04/23 1208: Progress Note Hospital course: 83-year-old female with previous hospital stays of Afib with RVR & respiratory failure with pneumonia & CHF presented to the ED with dizziness, near syncope, and found to have a Hgb of 7.4 with acute blood loss. Patient was admitted to ICU on 01/29/23 with hypovolemic shock with suspected GI bleed on anticoagulation. She was found to have an NSTEMI and an EGD & colonoscopy showed reflux esophagitis with mild distal esophageal stricture, moderate-severe gastritis, and moderate sigmoid diverticulosis. During her stay, anticoagulation and aspirin were put on hold due to active bleed and her Hgb was treated with 1 PRBC & iron sucrose injection (200 mg). On 01/29/23, CXR showed a new right upper lobe consolidation and was diagnosed with facility acquired pneumonia and placed on IV azithromycin (500 mg) & IV cefepime (1,000 mg). After patient stabilized, she was moved to [facility] where she made a slow recovery and was able to get better, but was still experiencing weakness. No other complications occurred and patient's Hgb was 10.4 on the day of discharge. She was started on 2 dose of azithromycin (250 mg, daily, PO) and was discharged on 02/04/23. MELINA BEAUCHAMP DO 02/05/23 0525: Supervisory-Addendum Brief Verification & Attestation Participated in pt care: history, MDM, physical Personally performed: exam, history, MDM, supervision of care Care discussed with: Medical Student Procedures: n/a Results interpretation: Verified all documentation Verification and Attestation of Medical Student E/M Service A medical student performed and documented this service in my presence. I reviewed and verified all information documented by the medical student and made modifications to such information, when appropriate. I personally performed the physical exam and medical decision making. Melina Beauchamp Feb 05, 2023,05:25 VIOLA REESE Feb 04, 2023 12:08 MELINA BEAUCHAMP DO Feb 05, 2023 05:25
[2023-02-04 12:36] VITALS: BP 100/55
== END 2023-02-04 14:50 | DRG 377 ==
LOC: EDUNIT# 11:47 → ER 11:49 → CSD 14:10 → ICU 16:16 → 4TH 02-02 12:58
PROVIDERS: ADMIT Internal Medicine; ATTEND Internal Medicine
PROC: 0DJD8ZZ Inspection of Lower Intestinal Tract, Via Natural or Artificial Opening Endoscopic (ICD-10-PCS; 2023-01-31)
PROC: 0DB48ZX Excision of Esophagogastric Junction, Via Natural or Artificial Opening Endoscopic, Diagnostic (ICD-10-PCS; principal; 2023-01-31 10:00)
PROC: 0DB78ZX Excision of Stomach, Pylorus, Via Natural or Artificial Opening Endoscopic, Diagnostic (ICD-10-PCS; 2023-01-31 10:00)
DX: K29.71 Gastritis, unspecified, with bleeding (principal); I21.4 Non-ST elevation (NSTEMI) myocardial infarction; R57.1 Hypovolemic shock; I50.33 Acute on chronic diastolic (congestive) heart failure; J18.9 Pneumonia, unspecified organism; N17.9 Acute kidney failure, unspecified; D62 Acute posthemorrhagic anemia; I11.0 Hypertensive heart disease with heart failure; Z66 Do not resuscitate; K21.00 Gastro-esophageal reflux disease with esophagitis, without bleeding; K22.2 Esophageal obstruction; K57.30 Diverticulosis of large intestine without perforation or abscess without bleeding; R26.2 Difficulty in walking, not elsewhere classified; J43.9 Emphysema, unspecified; I48.0 Paroxysmal atrial fibrillation; I44.7 Left bundle-branch block, unspecified; I27.20 Pulmonary hypertension, unspecified; I49.5 Sick sinus syndrome; I87.2 Venous insufficiency (chronic) (peripheral); I08.0 Rheumatic disorders of both mitral and aortic valves; Z91.81 History of falling; Z99.81 Dependence on supplemental oxygen; Z86.16 Personal history of COVID-19; Z79.01 Long term (current) use of anticoagulants; E78.00 Pure hypercholesterolemia, unspecified
CPT/HCPCS: 36410; 36415; 51701; 70450; 71045; 76937; 80048; 80053; 81000; 82274; 82550; 82553; 82607; 83540; 83735; 83874; 83880; 84100; 84484; 85007; 85025; 85027; 85379; 85610; 85652; 85730; 86141; 86850; 86900; 86901; 86920; 87040; 87081; 88305; 93005; 93041; 94640; 94664; 94760

== ENCOUNTER 2023-04-09 12:23 | Inpatient (IN) | payer MEDICARE ==
[~2023-04-09] VITALS: Ht 161 cm; Wt 58.0 kg
[~2023-04-09 12:23] MED LIST changes: +AMIO400T5 PO; +BETH25TA2 PO; +BIFI10.52 PO; +DOCU-143 PO; +IPRA3AMP31 IH; +PANT40TA52 PO
--- NOTE | 2023-04-09 12:35 | History & Physical-Hospitalist ---
History of Present Illness Date Seen 04/09/23 Attending Physician Cony Poole DO PCP Admitting Physician: Melina Benjamin DO Attending Physician: Melina Benjamin DO Referring Physician Date of Admission Home Medications & Allergies Home Medications Reviewed patient Home Medication Reconciliation performed by pharmacy medication reconciliations exercise equipment repair technician and/or nursing. Patients Allergies have been reviewed. Allergies Allergies Coded Allergies codeine (Unverified Allergy, Mild, Vomiting, 02/18/22) adhesive tape (Unverified Allergy, Unknown, 02/18/22) amoxicillin (Unverified Allergy, Unknown, 02/01/23) PT HAS TOLERATED CEPHALOSPORINS IN PAST (ROCEPHIN, CEFEPIME, CEFDINIR) Past Wtgrina-Ndlujn-Zsdfei Hx Immunizations Up To Date Date of Influenza Vaccine: May 28, 2021 First/Initial COVID19 Vaccinat: 07/04/20 Second COVID19 Vaccination Neo: 07/25/20 Tetanus Booster (TDap): More Than 5 Years Hepatitis A: No Hepatitis B: No Date of Pneumonia Vaccine: Jan 13, 2016 Seasonal Allergies Seasonal Allergies: No Current Status Primary Language: Bulgarian Past Medical History Surgeries: Cardiac, Vascular Surgery Pneumonia, COPD Currently Using CPAP: No Currently Using BIPAP: No Atrial Fibrillation, Chronic Edema/Swelling, High Cholesterol, Hypertension Kidney Infection, Bladder Infection Hypothyroidsim Cataract Hearing Impairment: Hard of Hearing Skin Did You Recieve Any Treatments: Yes What Type of Treatment Did You: Surgical Intervention Sleep Difficulties, Anxiety Blood Disorders: No Adverse Reaction/Blood Tranf: No Family Medical History Asthma Colon cancer Deafness or hearing loss Diabetes mellitus Hypertension Neoplasm Thyroid disease Asthma, Cancer, Diabetes, Hypertension Physical Exam Physical Exam Vital Signs Capillary Refill : Height, Weight, BMI Height: 5'3.50" Weight: 157lbs. 0.9oz. 71.610711pi; 23.08 BMI Method: Results Results/Procedures Labs Patient resulted labs reviewed. AGUSTO LEA MD, RESIDENT Apr 09, 2023 12:35
--- OUTSIDE RECORDS SUMMARY | 2023-04-09 12:59 | XMS REPORT | Encounter Summary ---
Author Author [facility] Organization [facility] Address Unknown Phone Unavailable Care Team Providers Care Upholstery Repairer Name Role Phone Cony Poole MD PCP [phone] Reason for Visit * Reason Onset Date Comments Remote Monitoring Questions 12/24/2022 Disc onnected monitor Encounter Details Date Type Department Care Team Description 12/24/2022 Telephone Cardiovascular Medicine: [facility] [address] [place] [address] Jessica Smallwood Remote Monitoring Questions (Disconnected monitor ) Social History Tobacco Use Types Packs/Day Years Used Date Smoking Tobacco: Former Cigarettes Q uit: 1983 Smokeless Tobacco: Never Alcohol Use Standard Drinks/Week Comments Never 0 (1 standard drink = 0.6 oz pur e alcohol) Alcohol Use Answer Date Recorded Alcohol Use No 06/19/2022 Male: 9+ ounces (15+ Standard Drinks) per week T hreshold Not on file 06/19/2022 Female: 4.8+ ounces (8+ Standard Drinks) per wee k Threshold 0 06/19/2022 Sex and Gender Information Value Date Recorded Sex Assigned at Female 06/19/2022 10:19 AM MEETING COORDINATOR Gender Identity Female 06/19/2022 10:19 AM MEETING COORDINATOR Sexual Orientation Straight 06/19/2022 10 :19 AM MEETING COORDINATOR documented as of this encounter Miscellaneous Notes * Telephone Encounter - Jessica Smallwood - 03/16/2023 1:51 PM CDT ILR was reconnected. No further action is required at this time. BC * Telephone Encounter - Jessica Smallwood - 03/02/2023 11:06 AM CDT Called and spoke with pts son Aric. He will be going down to see his mother in a few weeks. She is currently in rehab. He will take the monitor with him and get it reconnected. BC * Telephone Encounter - Jessica Smallwood - 03/02/2023 11:06 AM CDT Images from the original note were not included. Call back regarding device ( ILR) Received: Yesterday Call patient Mary Lou Chua, PIETER P Cvm Hrm Device Coordination Pt son LVM today about letters received regarding disconnected monitor. Mom has been in and out of ICU and rehab and wanting to help her get reconnected. Call Aric @ [phone]. Thanks, Laury/Device * Telephone Encounter - Jessica Smallwood - 02/25/2023 11:47 AM CDT LVM for pt to reconnect to bedside monitor. BC * Telephone Encounter - Jessica Smallwood - 02/18/2023 11:58 AM CDT Unable To reach pt at time of call. BC * Telephone Encounter - Guy Armas - 02/05/2023 6:48 AM CDT Certified letter card was returned with a signature, card sent to be scanned, tracking is below. CDJ Tracking Delivered Delivered, [place] [id number] January 27, 2023, 12:43 pm Reminder to Schedule Redelivery of your item January 26, 2023 Notice Left (No Authorized Recipient Available) [place] [id number] January 21, 2023, 1:37 pm Departed [facility] January 20, 2023, 5:16 pm Arrived at [facility] January 19, 2023, 7:44 pm * Telephone Encounter - Guy Armas - 2023 9:10 AM CDT Images from the original note were not included. Contact patient regarding disconnected monitor Received: Yesterday Call patient RiazMoriah moeller Airam Cvm Hrm Device Coordination Certified letter was sent to patient's residence and her neighbor signed for it. She just returned from the hospital and left message on the device line wishing to discuss the disconnected monitor further with someone. Please reach out her at your convenience at [phone]. Thank you, Moriah/Device Team Received above in basket, placed call to preferred phone number, Got no answer LVM. CDJ * Telephone Encounter - Guy Armas - 01/14/2023 6:36 AM CDT Certified letter [id number] CDJ * Telephone Encounter - Jessica Smallwood - 01/14/2023 6:27 AM CDT No communication has been received from patient. Certified letter has been sent to patient in follow up. BC * Telephone Encounter - Jessica Smallwood - 12/31/2022 3:24 AM CDT Letter sent to patient due to disconnected transmitter. BC * Telephone Encounter - Jessica Smallwood - 12/24/2022 11:01 AM CDT Received notification that [employer] Carelink has not been connected since 12/08/22. Patient was instructed to look at his/her transmitter to make sure that it is plugged into power and send a manual transmission to reconnect the transmitter. If he/she has any questions about how to send a transmission or if the transmitter does not appear to be working properly, they need to contact the device company directly. Patient was provided with that contact number. Requested the patient send us a [employer] message or contact our device nurses at [phone] to let us know after they have sent their transmission. LVM for pt to reconnect. BC Note: Patient needs to send a manual remote interrogation to reestablish communication to his/her remote transmitter. documented in this encounter Plan of Treatment Not on file documented as of this encounter Visit Diagnoses Not on filedocumented in this encounter Care Teams Upholstery Repairer Relationship Specialty Start Date End Date Cony Poole MD [address] [place] [address] PCP - General Family Medicine 05/15/22 documented as of this encounter
--- OUTSIDE RECORDS SUMMARY | 2023-04-09 12:59 | XMS REPORT | Clinical Summary ---
Author Author [facility] Organization [facility] Address Unknown Phone Unavailable Care Team Providers Care Performance Makeup Artist Name Role Phone Cony Poole MD PCP [phone] Source Comments Some departments are not documenting in the electronic medical record. If you do not see the information that you expected, contact Release of Information in the Health Information Management department at [phone] for further assistance in locating additional records.[facility] Allergies Active Allergy Reactions Criticality Noted Date Comments Amlodipine REDNESS,EDEMA Medium 07/30/2022 burning Cephalexin DIARRHEA Low 06/08/2022 Clindamycin DIARRHEA Low 06/08/2022 Codeine VOMITING Low 06/08/2022 Medications Medication Sig Dispensed Refills Start Date End Date Status albuterol sulfate (PROAIR HFA) 90 mcg/actuation HFA aerosol inhaler Inhale 2 puffs by mouth into the lungs every 4 hours as needed for Wheezing or Shortness of Breath. Shake well before use. 0 Active aspirin EC 81 mg tablet Take 81 mg by mouth daily. Take with food. 0 Active atorvastatin (LIPITOR) 20 mg tablet Take 20 mg by mouth daily. 0 Active budesonide (PULMICORT) 0.25 mg/2 mL nebulizer solution Inhale 0.25 mg solution by nebulizer as directed twice daily. 0 Active formoterol fumarate (PERFOROMIST) 20 mcg/2 mL nebulizer vial Inhale 20 mcg solution by nebulizer as directed twice daily. 0 Active carboxymethylcellulos /glycerin (REFRESH OPTIVE OP) Place into or around eye(s) twice daily. 0 Active levothyroxine (SYNTHROID) 88 mcg tablet Take 88 mcg by mouth daily 30 minutes before breakfast. 0 Active cyanocobalamin (vitamin B-12) 500 mcg tablet Take 500 mcg by mouth daily. 0 Active CHOLEcalciferoL (vitamin D3) (VITAMIN D3) 1,000 units tablet Take by mouth. 2000 units qam and 1000 units in the evening. 0 Active rivaroxaban (XARELTO) 15 mg tablet Take 15 mg by mouth daily. Take with food. 0 Active cetirizine (ZYRTEC) 10 mg tablet Take 10 mg by mouth every morning. 0 Active dilTIAZem CD (CARDIZEM CD) 180 mg capsule Take one capsule by mouth daily. 0 11/17/2022 Active flecainide (TAMBOCOR) 100 mg tablet Take one tablet by mouth twice daily. 0 11/17/2022 Active magnesium oxide (MAGOX) 400 mg (241.3 mg magnesium) tablet Take one tablet by mouth at bedtime daily. 0 Active Active Problems Problem Noted Date Diagnosed Date Malaise 06/08/2022 Overview: Per OV note on 04/27/[address] Roxy Lopez ([facility]) Postural dizziness 06/08/2022 Overview: Per OV note on 04/27/[address] Roxy Lopez ([facility]) SSS (sick sinus syndrome) 06/08/2022 Overview: Per OV note on 04/27/[address] Roxy Lopez ([facility]) PAF (paroxysmal atrial fibrillation) 06/08/2022 Overview: Per OV note on 04/27/[address] Roxy Lopez ([facility]) 01/15/2020 - EVM: ([facility]) SR, ST. Low burden of ectopy. No arrhythmias. 09/02/2020 - ECHO: ([facility]) LV cavity is normal. LV wall thickness is normal. LV systolic function is normal. EF ~ 55-60%. There were no regional wall motion abnormalities identified. Doppler parameters are consistent with abnormal LV relaxation (grade 1 diastolic dysfunction). LA is mildly dilated. Mild MVR. AV thickening, consistent with sclerosis. Mild AVR. PASP is in the range of 40-45 mmHg. 09/24/2020 - Regadenoson MPI: ([facility]) No evidence of any significant myocardial ischemia or infarction on this study. Normal regional wall motion. Normal global LV systolic function with EF of 57%. 02/14/2021 - Sleep Study: ( A diagnostic sleep study was performed. The patient did not exhibit CONSTANZA during this study. She had mild primary snoring. She had periodic leg movements which caused 9 cortical arousals/hour. Status post placement of implantable loop record er 06/08/2022 Overview: Per OV note on 04/27/[address] Roxy Lopez ([facility]) Hypothyroid 06/08/2022 Overview: Per OV note on 04/27/[address] Roxy Lopez ([facility]) Primary hypertension 06/08/2022 Overview: Per OV note on 04/27/[address] Roxy Lopez ([facility]) Carotid artery disease 06/08/2022 Overview: Per OV note on 04/27/[address] Roxy Lopez ([facility]) 03/04/2021 - Carotid Artery Duplex: ([facility]) Moderate bilateral carotid plaque, greatest on the right. Velocity measurements in the right internal carotid artery are consistent with greater than 69% diameter stenosis. 03/13/2021 - CTA of Neck: ([facility]) Approximately 80% stenosis in the proximal right ICA secondary to atherosclerotic plaque. No significant stenosis is seen in the left carotid system. No stenosis or dissection in the bilateral vertebral arteries. 09/10/2021 - Carotid Artery Duplex: ([facility]) Mild bilateral carotid arterial plaque without evidence of hemodynamic significance. COPD (chronic obstructive pulmonary disease) 07/2022 Overview: Per OV note on 04/27/[address] Roxy Lopez ([facility]) Localized swelling of both lower legs 06/08/2022 Overview: Per OV note on 04/27/[address] Roxy Lopez ([facility]) Encounters Date Type Department Care Team Description 03/24/2023 Telephone [facility] [address] [place] [address]. [address] [place] [address] Radha Bender Remote Monitoring Questions 03/23/2023 12:03 PM CDT - 03/23/2023 11:59 PM CDT Hospital Encounter Cardiovascular Medicine Remote Device Check [phone] Discharge Disposition: Home or Self Care from Last 3 Months Surgical History Surgery Date Site/Laterality Comments ELECTROCARDIOGRAM CARDIOVERSION RHYTHM DEVICE PLACEMENT DOPPLER ECHOCARDIOGRAPHY EVENT MONITOR CARDIOVASCULAR STRESS TEST Medical History Medical History Date Comments Malaise 06/08/2022 Postural dizziness 06/08/2022 SSS (sick sinus syndrome) (HCC) 06/08/2022 PAF (paroxysmal atrial fibrillation) (HCC) 023 Status post placement of implantable loop record er 06/08/2022 Hypothyroid 06/08/2022 Primary hypertension 06/08/2022 Carotid artery disease (HCC) 06/08/2022 COPD (chronic obstructive pulmonary disease) ([facility]) 06/08/2022 Localized swelling of both lower legs 06/08/2022 Social History Tobacco Use Types Packs/Day Years Used Date Smoking Tobacco: Former Cigarettes Q uit: 1983 Smokeless Tobacco: Never Tobacco Cessation:Counseling Given: No Alcohol Use Standard Drinks/Week Comments Never 0 [...] Sex Assigned at Female 06/19/2022 10:19 AM OVEN STRIPPER Gender Identity Female 06/19/2022 10:19 AM OVEN STRIPPER Sexual Orientation Straight 06/19/2022 10 :19 AM OVEN STRIPPER Obstetrics History Last Filed Vital Signs Vital Sign Reading Time Taken Comments Blood Pressure 181/86 06/19/2022 1:39 PM OVEN STRIPPER Pulse 68 06/19/2022 1:39 PM OVEN STRIPPER Temperature 36.3 C (97.3 F) 06/19/2022 1:39 PM OVEN STRIPPER Respiratory Rate 18 06/19/2022 1:3 9 PM OVEN STRIPPER Oxygen Saturation 96% 06/19/2022 1: 39 PM OVEN STRIPPER Inhaled Oxygen Concentration - - Weight 60.2 kg (132 lb 12.8 oz) 023 1:39 PM OVEN STRIPPER Height 160 cm (5' 3") 06/19/2022 1:39 PM OVEN STRIPPER Body Mass Index 23.52 06/19/2022 1:39 PM OVEN STRIPPER Plan of Treatment Health Maintenance Due Date Last Done Comments MEDICARE ANNUAL WELLNESS VISIT 1940 DTAP/TDAP VACCINES (1 - Tdap) 01/28/1958 PHYSICAL (COMPREHENSIVE) EXAM 01/28/1958 SHINGLES RECOMBINANT VACCINE (1 of 2) 01/28/1990 OSTEOPOROSIS SCREENING/MONITORING 01/28/2005 PNEUMOCOCCAL VACCINE 65+ YRS (2 - PPSV23 or PCV20) 03/09/2016 01/13/2016 ADVANCE CARE PLANNING DISCUS ZAN AND DOCUMENTATION 06/07/2022 DEPRESSION SCREENING 06/07/2022 COVID-19 VACCINE (6 - 2022-2 4 season) 2023 03/20/2022, 09/26/2021, 04/04/2021, Additional history exists INFLUENZA VACCINE Completed 03/01/2023, , 02/27/2021, Additional history exists Procedures Procedure Name Priority Date/Time Associated Diagnosis Comments DEVICE EVALUATION - REMOTE ILR Routine 03/23/2023 12:03 PM CDT PAF (paroxysmal atrial fibrillation) (HCC) from Last 3 Months Results * DEVICE EVALUATION - REMOTE ILR NO CHARGES (03/23/2023 12:03 PM CDT) Device Type ILR MURJ Generator Dry Cleaner Helper Fusion Coolant Systemstronic MURJ Generator Model # [id number] MURJ Generator Serial # [id number] MURJ Generator Implnat Date [id number] MURJ On Anticoagulation yes MURJ Anatomical Region Laterality Modality MAC CV Heart Rhy thm 03/23/2023 11:5 8 AM CDT Narrative 03/26/2023 7:46 AM CDT Title: Normal Remote: No Events # SUMMARY REPORT * Battery data was reviewed * Battery status: OK * Presenting rhythm reviewed * Heart Rate Histograms reviewed Additional Notes: location, [facility] Reji Miller MD HEART RHYTHM MANAGEM ENT ORDERABLES from Last 3 Months Care Teams Performance Makeup Artist Relationship Specialty Start Date End Date Cony Poole MD [address] [place] [address] PCP - General Family Medicine 05/15/22
--- OUTSIDE RECORDS SUMMARY | 2023-04-09 12:59 | XMS REPORT | Encounter Summary ---
Author Author [facility] Organization [facility] Address Unknown Phone Unavailable Care Team Providers Care Skiff Operator Name Role Phone Cony Poole MD PCP [phone] Reason for Visit * Reason Onset Date Comments Implantable Loop Recorder-Abnormal Results(Rhyth m) 12/09/2022 Encounter Details Date Type Department Care Team Description 12/09/2022 Telephone Cardiovascular Medicine: [facility] [address] [place] [address] Adriana Fajardo BSN Implantable Loop Recorder-Abnormal Results(Rhythm) Social History Tobacco Use Types Packs/Day Years [...] Sex Assigned at Female 06/19/2022 10:19 AM DATA ANALYST REPORT WRITER Gender Identity Female 06/19/2022 10:19 AM DATA ANALYST REPORT WRITER Sexual Orientation Straight 06/19/2022 10 :19 AM DATA ANALYST REPORT WRITER documented as of this encounter Miscellaneous Notes * Telephone Encounter - Adriana Fajardo BSN - 12/10/2022 8:55 AM CDT RC. LVM to CB. * Telephone Encounter - Adriana Fajardo BSN - 12/09/2022 9:03 AM CDT Called patient to discuss. Per last alert we received, "At this time I would just continue monitoring through her ILR. If her burden increases significantly then could consider as needed Flecainide if it is infrequent episodes or reinitiation of Amiodarone, assuming she would not get bradycardicon amiodarone. That of course would require dose adjustment of her Toprol. ...this could be done by Dr. Lopez if needed. Patient would like to think about it. If she wants to see MPE I think we should review with him." No answer/Unable to LVM * Telephone Encounter - Adriana Fajardo BSN - 12/09/2022 9:02 AM CDT ----- Message from Radha Bender sent at 12/08/2022 7:58 AM CDT ----- Regarding: MPE LINQ pt with numerous AFL events with RVR Open the attached PDF for the MURJ device report and data sheets. Please review ILR findings and advise for AF alerts moving forward: manager printing was notified for V rates in AF > 100 bpm. documented in this encounter Plan of Treatment Not on file documented as of this encounter Visit Diagnoses Not on filedocumented in this encounter Care Teams Skiff Operator Relationship Specialty Start Date End Date Cony Poole MD [address] [place], [place] [address] PCP - General Family Medicine 05/15/22 documented as of this encounter
--- OUTSIDE RECORDS SUMMARY | 2023-04-09 12:59 | XMS REPORT | Encounter Summary ---
Author Author [facility] Organization [facility] Address Unknown Phone Unavailable Care Team Providers Care Head Field Hockey Coach Name Role Phone Cony Poole MD PCP [phone] Encounter Details Date Type Department Care Team Description 03/23/2023 12:03 PM CDT - 03/23/2023 11:59 PM CDT Hospital Encounter Cardiovascular Medicine Remote Device Check [phone] Discharge Disposition: Home or Self Care Social History Tobacco Use Types Packs/Day Years [...] Sex Assigned at Female 06/19/2022 10:19 AM DOCKWORKER Gender Identity Female 06/19/2022 10:19 AM DOCKWORKER Sexual Orientation Straight 06/19/2022 10 :19 AM DOCKWORKER documented as of this encounter Medications at Time of Discharge Medication Sig Dispensed Refills Start Date End Date albuterol sulfate (PROAIR HFA) 90 mcg/actuation HFA aerosol inhaler Inhale 2 puffs by mouth into the lungs every 4 hours as needed for Wheezing or Shortness of Breath. Shake well before use. 0 aspirin EC 81 mg tablet Take 81 mg by mouth daily. Take with food. 0 atorvastatin (LIPITOR) 20 mg tablet Take 20 mg by mouth daily. 0 budesonide (PULMICORT) 0.25 mg/2 mL nebulizer solution Inhale 0.25 mg solution by nebulizer as directed twice daily. 0 carboxymethylcellulos/gl ycerin (REFRESH OPTIVE OP) Place into or around eye(s) twice daily. 0 cetirizine (ZYRTEC) 10 mg tablet Take 10 mg by mouth every morning. 0 CHOLEcalciferoL (vitamin D3) (VITAMIN D3) 1,000 units tablet Take by mouth. 2000 units qam and 1000 units in the evening. 0 cyanocobalamin (vitamin B-12) 500 mcg tablet Take 500 mcg by mouth daily. 0 dilTIAZem CD (CARDIZEM CD) 180 mg capsule Take one capsule by mouth daily. 0 11/17/2022 flecainide (TAMBOCOR) 100 mg tablet Take one tablet by mouth twice daily. 0 11/17/2022 formoterol fumarate (PERFOROMIST) 20 mcg/2 mL nebulizer vial Inhale 20 mcg solution by nebulizer as directed twice daily. 0 levothyroxine (SYNTHROID) 88 mcg tablet Take 88 mcg by mouth daily 30 minutes before breakfast. 0 magnesium oxide (MAGOX) 400 mg (241.3 mg magnesium) tablet Take one tablet by mouth at bedtime daily. 0 rivaroxaban (XARELTO) 15 mg tablet Take 15 mg by mouth daily. Take with food. 0 documented as of this encounter Discharge Disposition Disposition Code Departure Means Destination Home or Self Skilled Nursing documented in this encounter Plan of Treatment Not on file documented as of this encounter Procedures Procedure Name Priority Date/Time Associated Diagnosis Comments DEVICE EVALUATION - REMOTE ILR Routine 03/23/2023 12:03 PM CDT PAF (paroxysmal atrial fibrillation) (HCC) documented in this encounter Results * DEVICE EVALUATION - REMOTE ILR NO CHARGES (03/23/2023 12:03 PM CDT) Device Type ILR MURJ Generator Caustic Mixer [employer] MURJ Generator Model # [id number] MURJ Generator Serial # [id number] MURJ Generator Implnat Date 20200301 MURJ On [...] Miller MD HEART RHYTHM MANAGEM ENT ORDERABLES documented in this encounter Visit Diagnoses Not on filedocumented in this encounter Care Teams Head Field Hockey Coach Relationship Specialty [place] [address] [place] [address] PCP - General Family Medicine 05/15/22 documented as of this encounter
--- OUTSIDE RECORDS SUMMARY | 2023-04-09 12:59 | XMS REPORT | Encounter Summary ---
Author Author [facility] Organization [facility] Address Unknown Phone Unavailable Care Team Providers Care Naphthalene Still Operator Name Role Phone Cony Poole MD PCP [phone] Reason for Visit * Reason Onset Date Comments Remote Monitoring Questions 03/24/2023 Encounter Details Date Type Department Care Team Description 03/24/2023 Telephone Cardiovascular Medicine: [facility], [address] [place] [address]. [address], [address] [place] [address] Radha Bender Remote Monitoring Questions Social History Tobacco Use Types Packs/Day Years [...] Sex Assigned at Female 06/19/2022 10:19 AM SHREDDED FILLER HOPPER FEEDER Gender Identity Female 06/19/2022 10:19 AM SHREDDED FILLER HOPPER FEEDER Sexual Orientation Straight 06/19/2022 10 :19 AM SHREDDED FILLER HOPPER FEEDER documented as of this encounter Miscellaneous Notes * Telephone Encounter - Radha Bender - 03/24/2023 10:49 AM CDT Spoke with pt's son (Aric) and asked if we can get the pt to send a remote transmission from bedside monitor. He requested an email with instructions to send to the group home she is in. I will send the information to [email or web address] and he will send over these instructions to the RN to salma shanks pt. documented in this encounter Plan of Treatment Not on file documented as of this encounter Visit Diagnoses Not on filedocumented in this encounter Care Teams Naphthalene Still Operator Relationship Specialty Start Date End Date Cony Poole MD [address] [place] [address] PCP - General Family Medicine 05/15/22 documented as of this encounter
--- OUTSIDE RECORDS SUMMARY | 2023-04-09 12:59 | XMS REPORT | Encounter Summary ---
Author Author [facility] Organization [facility] Address Unknown Phone Unavailable Care Team Providers Care Supervisor Blood Donor Recruiters Name Role Phone Cnoy Poole MD PCP [phone] Encounter Details Date Type Department Care Team Description 12/22/2022 7:25 AM CDT - 12/22/2022 11:59 PM CDT Hospital Encounter Cardiovascular Medicine Remote Device Check [phone] Discharge Disposition: Home or Self Care Social [...] Sex Assigned at Female 06/19/2022 10:19 AM CHILD AND ADOLESCENT THERAPIST Gender Identity Female 06/19/2022 10:19 AM CHILD AND ADOLESCENT THERAPIST Sexual Orientation Straight 06/19/2022 10 :19 AM CHILD AND ADOLESCENT THERAPIST documented as of this encounter Medications at [...] Code Departure Means Destination Home or Self Alf documented in this encounter Plan of Treatment Not on file documented as of this encounter Procedures Procedure Name Priority Date/Time Associated Diagnosis Comments DEVICE EVALUATION - REMOTE ILR Routine 12/22/2022 7:25 AM CDT PAF (paroxysmal atrial fibrillation) (HCC) documented in this encounter Results * DEVICE EVALUATION - REMOTE ILR NO CHARGES (12/22/2022 7:25 AM CDT) Device Type ILR MURJ Generator Food Equipment Service Technician [employer] MURJ Generator Model # [id number] MURJ Generator Serial # [id number] MURJ Generator Implnat Date 20200301 MURJ On Anticoagulation yes MURJ Anatomical Region Laterality Modality MAC CV Heart Rhy thm 12/19/2022 6:5 1 PM CDT Narrative 12/31/2022 12:39 PM CDT Title: Remote Check * Diagnostic device interrogation reviewed by technical staff * Alerts or Events: 0 * Battery: , * Programmed parameters reviewed * Presenting rhythm reviewed * Heart Rate Histograms reviewed Additional Notes: reviewing location remote Reji Miller MD HEART RHYTHM MANAGEM ENT ORDERABLES documented in this encounter Visit Diagnoses Not on filedocumented in this encounter Care Teams Supervisor Blood Donor Recruiters Relationship Specialty Start Date End Date Cony Poole MD [address] [place] [address] PCP - General Family Medicine 05/15/22 documented as of this encounter
--- OUTSIDE RECORDS SUMMARY | 2023-04-09 12:59 | XMS REPORT | Encounter Summary ---
Author Author [facility] Organization [facility] Address Unknown Phone Unavailable Care Team Providers Care Registered Respiratory Technician Name Role Phone Cony Poole MD PCP [phone] Encounter Details Date Type Department Care Team Description 12/08/2022 8:02 AM CDT - 12/08/2022 11:59 PM CDT Hospital Encounter Cardiovascular Medicine Remote Device Check [phone] Discharge Disposition: Home or Self Care Social [...] Sex Assigned at Female 06/19/2022 10:19 AM CRIMINAL LAWYER Gender Identity Female 06/19/2022 10:19 AM CRIMINAL LAWYER Sexual Orientation Straight 06/19/2022 10 :19 AM CRIMINAL LAWYER documented as of this encounter Medications at [...] Code Departure Means Destination Home or Self Mcfp documented in this encounter Plan of Treatment Not on file documented as of this encounter Procedures Procedure Name Priority Date/Time Associated Diagnosis Comments DEVICE EVALUATION - REMOTE ILR CHARGES Routine 12/20/2022 8:02 AM CDT PAF (paroxysmal atrial fibrillation) (HCC) documented in this encounter Results * DEVICE EVALUATION - REMOTE ILR CHARGES (12/20/2022 8:02 AM CDT) Device Type ILR MURJ Generator Advertising Statistical Clerk [employer] MURJ Generator Model # LNQ11 MURJ Generator Serial # [id number] MURJ Generator Implnat Date 20200301 MURJ On Anticoagulation yes MURJ Anatomical Region Laterality Modality MAC CV Heart Rhy thm 12/08/2022 12:0 5 AM CDT Narrative 12/23/2022 8:51 AM CDT Title: Tachycardia: AF * Stored EGMs are consistent with or suggestive of Atrial Fibrillation lasting 3 hours 2 minutes * Total episodes: 1 * AT burden: 72.36% Title: Tachycardia: AF * Stored EGMs are consistent with or suggestive of Atrial Fibrillation lasting 3 hours 4 minutes. avg V rate 92 bpm * Total episodes: 1 * AT burden: 47.78% Title: Tachycardia: AF * Stored EGMs are consistent with or suggestive of Atrial Fibrillation lasting 8 minutes * Total episodes: 1 * AT burden: 21.81% Title: Tachycardia: AFL # EP NURSE (C TEAM) WAS FLAGGED TO REVIEW AND F/U * Stored EGMs 12/04-12/07 are consistent with or suggestive of Atrial Flutter with some RVR * Total episodes: 229 * AT burden: 66.39% Additional Notes: Location: [facility] Reji Miller MD HEART RHYTHM MANAGEM ENT ORDERABLES documented in this encounter Visit Diagnoses Not on filedocumented in this encounter Care Teams Registered Respiratory Technician Relationship Specialty Start Date End Date Cony Poole MD [address] [place], [place] [address] PCP - General Family Medicine 05/15/22 documented as of this encounter
--- OUTSIDE RECORDS SUMMARY | 2023-04-09 13:00 | XMS REPORT | Encounter Summary ---
Author Author [facility] Organization [facility] Address Unknown Phone Unavailable Care Team Providers Care Leather Currier Name Role Phone Cony Poole MD PCP [phone] Reason for Visit * Reason Onset Date Comments Implantable Loop Recorder-Abnormal Results(Rhyth m) 11/26/2022 AF daily Encounter Details Date Type Department Care Team Description 11/26/2022 Telephone Cardiovascular Medicine: [facility] [address] [facility] [address] [place] [address] Tamia Paul RN Implantable Loop Recorder-Abnormal Results(Rhythm) (AF daily) Social History Tobacco Use Types Packs/Day Years [...] Sex Assigned at Female 06/19/2022 10:19 AM STRUCTURAL FITTER Gender Identity Female 06/19/2022 10:19 AM STRUCTURAL FITTER Sexual Orientation Straight 06/19/2022 10 :19 AM STRUCTURAL FITTER documented as of this encounter Miscellaneous Notes * Telephone Encounter - Juan A Leong RN - 11/27/2022 1:08 PM CDT Images from the original note were not included. WALLY KEYES Received: Today Call patient Stephanie, Kaila, PAYROLL SUPERVISOR P Cvm Nurse Ep Team C VM on triage line from patient at 9:24am. Said that she is leaving to go to shelter for 2-3 weeks and wanted to know if [facility]PE will be her doctor. Call her on cell #[phone]. 11/27/2022 1:17 PM: Called and spoke to patient. I thought she was asking if [facility]PE was going to be seeing her at the SNF but that is actually not what she was asking. She was asking if MPE is going to be her Dr. or Dr. Lopez. She said her kids told her that she wants MPE because he will be able to help her more. I told patient that we do need to get this clarified. I told her that he only sees new patients in [place] and not return patients. If she wants to continue to follow with MPE then she will need tosee him in and any procedures (DCCV, ablations etc) would need to be done in . His OV note from June made it seem like he was having her go back to Dr. Lopez. He did not schedule any follow up with himself (Dr. Miller). But I think somewhere along the way there was some confusion and we requested to have her ILRs sent to us. Arthur OV note from 06/19 says: We discussed options at this point. At this time I would just continue monitoring through her ILR. If her burden increases significantly then could consider as needed Flecainide if it is infrequent episodes or reinitiation of Amiodarone, assuming she would not get bradycardic on amiodarone. That of course would require dose adjustment of her Toprol. ...this could be done by Dr. Lopez if needed. Patient would like to think about it. If she wants to see MPE I think we should review with him. * Telephone Encounter - Tamia Paul RN - 11/26/2022 9:49 AM CDT Remote showing pt is having daily AF episodes with some V rates 100-120s. Spoke to pt. She is not aware when in Afib. Denies any presyncopal feelings in the last week. Denies SOA, dizzy, lightheaded, chest pain. Taking diltiazem 180mg daily, flecainide 100mg BID, and Xarelto 15mg daily. BP 127/81, HR 89. She is in the planning phases of being admitted to shelter. Has PCP appt this afternoon. Latest remote faxed to her. Dr. Lopez is her local labor contract analyst. I will reach out to Dr. Green office to let them know about remotes. She will follow up with local cards in regards to AF. Spoke to PIETER Quarles for Dr. Lopez.She requests report be faxed to them. She will f/u w provider. Faxed to [phone]. * Telephone Encounter - Tamia Paul RN - 11/26/2022 9:48 AM CDT ----- Message from Kaila Stock sent at 11/26/2022 8:47 AM CDT ----- Regarding: [facility]PE LINQ Continued AF see today's remote documented in this encounter Plan of Treatment Not on file documented as of this encounter Visit Diagnoses Not on filedocumented in this encounter Care Teams Leather Currier Relationship Specialty Start Date End Date Cony Poole MD [address] [place] [address] PCP - General Family Medicine 05/15/22 documented as of this encounter
--- OUTSIDE RECORDS SUMMARY | 2023-04-09 13:00 | XMS REPORT | Encounter Summary ---
Author Author [facility] Organization [facility] Address Unknown Phone Unavailable Care Team Providers Care Adjunct Psychology Instructor Name Role Phone Cony Poole MD PCP [phone] Encounter Details Date Type Department Care Team Description 12/01/2022 7:53 AM CDT - 12/01/2022 11:59 PM CDT Hospital Encounter Cardiovascular Medicine Remote Device Check [phone] Discharge Disposition: Home or Self Care Social [...] Sex Assigned at Female 06/19/2022 10:19 AM HEAD CASHIER Gender Identity Female 06/19/2022 10:19 AM HEAD CASHIER Sexual Orientation Straight 06/19/2022 10 :19 AM HEAD CASHIER documented as of this encounter Medications at [...] Code Departure Means Destination Home or Self Residential documented in this encounter Plan of Treatment Not on file documented as of this encounter Procedures Procedure Name Priority Date/Time Associated Diagnosis Comments DEVICE EVALUATION - REMOTE ILR Routine 12/01/2022 7:53 AM CDT PAF (paroxysmal atrial fibrillation) (HCC) documented in this encounter Results * DEVICE EVALUATION - REMOTE ILR NO CHARGES (12/01/2022 7:53 AM CDT) Device Type ILR MURJ Generator Hat And Cap Drying Room Attendant [employer] MURJ Generator Model # [id number] MURJ Generator Serial # [id number] MURJ Generator Implnat Date 20200301 MURJ On Anticoagulation yes MURJ Anatomical Region Laterality Modality MAC CV Heart Rhy thm 12/01/2022 12:0 5 AM CDT Narrative 12/10/2022 1:55 PM CDT Title: Remote Check * Diagnostic device interrogation reviewed by technical staff * Alerts or Events: 43. full report * Battery: OK, * Programmed parameters reviewed * Presenting rhythm reviewed * Heart Rate Histograms reviewed Title: Normal Remote: No Events * This is a normal remote diagnostic device check * Alerts or events: None * Battery data was reviewed * Battery status: OK, * Presenting rhythm reviewed * Heart Rate Histograms reviewed Title: Tachycardia: AF * Stored EGMs are consistent with or suggestive of Atrial Fibrillation * Total episodes: 1 * AT burden: 77.92% Title: Tachycardia: AF * Stored EGMs are consistent with or suggestive of Atrial Fibrillation * Total episodes: 1 * AT burden: 89.17% Title: Tachycardia: AF * Stored EGMs are consistent with or suggestive of Atrial Fibrillation lasting 7 hours 8 minutes with avg V rate 100 bpm * Total episodes: 1 * AT burden: 96.11% Additional Notes: reviewing location remote Reji Miller MD HEART RHYTHM MANAGEM ENT ORDERABLES documented in this encounter Visit Diagnoses Not on filedocumented in this encounter Care Teams Adjunct Psychology Instructor Relationship Specialty Start Date End Date Cony Poole MD [address] [place] [address] PCP - General Family Medicine 05/15/22 documented as of this encounter
--- OUTSIDE RECORDS SUMMARY | 2023-04-09 13:00 | XMS REPORT | Encounter Summary ---
Author Author [facility] Organization [facility] Address Unknown Phone Unavailable Care Team Providers Care Lathe Operator Name Role Phone Cony Poole MD PCP [phone] Encounter Details Date Type Department Care Team Description 11/26/2022 8:49 AM CDT - 11/26/2022 11:59 PM CDT Hospital Encounter Cardiovascular Medicine Remote Device Check [phone] Discharge Disposition: Home or Self Care Social [...] Sex Assigned at Female 06/19/2022 10:19 AM OPTOMECHANICAL ENGINEER Gender Identity Female 06/19/2022 10:19 AM OPTOMECHANICAL ENGINEER Sexual Orientation Straight 06/19/2022 10 :19 AM OPTOMECHANICAL ENGINEER documented as of this encounter Medications at [...] Code Departure Means Destination Home or Self Usp documented in this encounter Plan of Treatment Not on file documented as of this encounter Procedures Procedure Name Priority Date/Time Associated Diagnosis Comments DEVICE EVALUATION - REMOTE ILR Routine 11/26/2022 8:49 AM CDT PAF (paroxysmal atrial fibrillation) (HCC) documented in this encounter Results * DEVICE EVALUATION - REMOTE ILR NO CHARGES (11/26/2022 8:49 AM CDT) Device Type ILR MURJ Generator Damage Inside Adjuster [employer] MURJ Generator Model # LNQ11 MURJ Generator Serial # [id number] MURJ Generator Implnat Date 20200301 MURJ On Anticoagulation yes MURJ Anatomical Region Laterality Modality MAC CV Heart Rhy thm 11/26/2022 12:0 5 AM CDT Narrative 12/09/2022 11:25 AM CDT Title: Oversensing * Stored EGMs are consistent with or suggestive of oversensing of the baseline ECG rhythm * No new clinically significant arrhythmia Title: Tachycardia: AF * Stored EGMs are consistent with or suggestive of Atrial Fibrillation lasting 5 hours 22 minutes avg V rates * Total episodes: 1 * AT burden: 59.31% Title: Oversensing multiple tachy alerts- 1 for review showing oversenting Title: Tachycardia: AF * Stored EGMs are consistent with or suggestive of Atrial Fibrillation * Total episodes: 1 * AT burden: 71.53% Trends report shows AF daily since ~ 11/21 daily burden 8-16 hours. avg V rates appear to be 100s-120s Title: Alert: Roman DE LA CRUZ RN notified of AF Additional Notes: reviewing location remote Reji Miller MD HEART RHYTHM MANAGEM ENT ORDERABLES documented in this encounter Visit Diagnoses Not on filedocumented in this encounter Care Teams Lathe Operator Relationship Specialty Start Date End Date Cony Poole MD [address] [place] [address] PCP - General Family Medicine 05/15/22 documented as of this encounter
--- OUTSIDE RECORDS SUMMARY | 2023-04-09 13:00 | XMS REPORT | Encounter Summary ---
Author Author [facility] Organization [facility] Address Unknown Phone Unavailable Care Team Providers Care Tool Radial Drill Press Set Up Operator Name Role Phone Cony Poole MD PCP [phone] Encounter Details Date Type Department Care Team Description 10/20/2022 3:37 PM CDT - 10/20/2022 11:59 PM CDT Hospital Encounter Cardiovascular Medicine Remote Device Check [phone] Discharge Disposition: Home or Self Care Social [...] Sex Assigned at Female 06/19/2022 10:19 AM SPRAY RIG OPERATOR Gender Identity Female 06/19/2022 10:19 AM SPRAY RIG OPERATOR Sexual Orientation Straight 06/19/2022 10 :19 AM SPRAY RIG OPERATOR documented as of this encounter Medications at [...] by nebulizer as directed twice daily. 0 carboxymethylcellulos/ glycerin (REFRESH OPTIVE OP) Place into or around eye(s) twice daily. 0 cetirizine (ZYRTEC) 10 mg tablet Take 10 mg by mouth every morning. 0 CHOLEcalciferoL (vitamin D3) (VITAMIN D3) 1,000 units tablet Take by mouth. 2000 units qam and 1000 units in the evening. 0 cyanocobalamin (vitamin B-12) 500 mcg tablet Take 500 mcg by mouth daily. 0 formoterol fumarate (PERFOROMIST) 20 mcg/2 mL nebulizer vial Inhale 20 mcg solution by nebulizer as directed twice daily. 0 levothyroxine (SYNTHROID) 88 mcg tablet Take 88 mcg by mouth daily 30 minutes before breakfast. 0 rivaroxaban (XARELTO) 15 mg tablet Take 15 mg by mouth daily. Take with food. 0 hydrALAZINE (APRESOLINE) 10 mg tablet Take one tablet by mouth twice daily. 180 tablet 1 07/30/2022 11/23/2022 losartan (COZAAR) 50 mg tablet Take 50 mg by mouth twice daily. 0 11/23/2022 metoprolol succinate XL (TOPROL XL) 100 mg extended release tablet Take 100 mg by mouth daily. 0 11/23/2022 documented as of this encounter Discharge Disposition Disposition Code Departure Means Destination Home or Self Mcfp documented in this encounter Plan of Treatment Not on file documented as of this encounter Procedures Procedure Name Priority Date/Time Associated Diagnosis Comments DEVICE EVALUATION - REMOTE ILR CHARGES Routine 10/19/2022 3:37 PM CDT Status post placement of implantable loop recorder documented in this encounter Results * DEVICE EVALUATION - REMOTE ILR CHARGES (10/19/2022 3:37 PM CDT) Device Type ILR MURJ Generator Brake Operator Sheet Metal [employer] MURJ Generator Model # LNQ11 MURJ Generator Serial # [id number] MURJ Generator Implnat Date 20200301 MURJ On Anticoagulation yes MURJ Anatomical Region Laterality Modality MAC CV Heart Rhy thm 10/18/2022 6:4 3 PM CDT Narrative 11/16/2022 11:29 AM CDT Title: Normal Remote: No Events * SUMMARY REPORT * Alerts or events: None * Battery data was reviewed * Battery status: OK * Presenting rhythm reviewed * Heart Rate Histograms reviewed Additional Notes: Location: [facility] Reji Miller MD HEART RHYTHM MANAGEM ENT ORDERABLES documented in this encounter Visit Diagnoses Not on filedocumented in this encounter Care Teams Tool Radial Drill Press Set Up Operator Relationship Specialty Start Date End Date Cony Poole MD [address] [place], [place] [address] PCP - General Family Medicine 05/15/22 documented as of this encounter
--- OUTSIDE RECORDS SUMMARY | 2023-04-09 13:00 | XMS REPORT | Encounter Summary ---
Author Author [facility] Organization [facility] Address Unknown Phone Unavailable Care Team Providers Care Binder Operator Name Role Phone Cony Poole MD PCP [phone] Encounter Details Date Type Department Care Team Description 11/23/2022 Orders Only Cardiovascular [facility]: [facility] [address] [facility] [address] [place] [address] Tamia Paul RN PAF (paroxysmal atrial fibrillation) (HCC) (Primary Dx) Social History Tobacco Use Types Packs/Day Years [...] Sex Assigned at Female 06/19/2022 10:19 AM SENIOR VALIDATION ENGINEER Gender Identity Female 06/19/2022 10:19 AM SENIOR VALIDATION ENGINEER Sexual Orientation Straight 06/19/2022 10 :19 AM SENIOR VALIDATION ENGINEER documented as of this encounter Plan of Treatment Scheduled Orders Name Type Priority Associated Diagnoses Orde r Schedule DEVICE EVALUATION - REMOTE ILR Device Check Remote Routine PAF (paroxysmal atrial fibrillation) (HCC) Every 4 weeks for 150 Occurrences starting 11/23/2022 until 11/24/2023, 11 completed documented as of this encounter Procedures Procedure Name Priority Date/Time Associated Diagnosis Comments DEVICE EVALUATION - REMOTE ILR Routine 03/23/2023 12:03 PM CDT PAF (paroxysmal atrial fibrillation) (HCC) DEVICE EVALUATION - REMOTE ILR Routine 12/22/2022 7:34 AM CDT PAF (paroxysmal atrial fibrillation) (HCC) DEVICE EVALUATION - REMOTE ILR Routine 12/22/2022 7:25 AM CDT PAF (paroxysmal atrial fibrillation) (HCC) DEVICE EVALUATION - REMOTE ILR CHARGES Routine 12/20/2022 8:02 AM CDT PAF (paroxysmal atrial fibrillation) (HCC) DEVICE EVALUATION - REMOTE ILR Routine 12/01/2022 7:53 AM CDT PAF (paroxysmal atrial fibrillation) (HCC) DEVICE EVALUATION - REMOTE ILR Routine 11/26/2022 8:49 AM CDT PAF (paroxysmal atrial fibrillation) (HCC) DEVICE EVALUATION - REMOTE ILR Routine 11/24/2022 8:35 AM CDT PAF (paroxysmal atrial fibrillation) (HCC) DEVICE EVALUATION - REMOTE ILR Routine 11/23/2022 1:23 PM CDT PAF (paroxysmal atrial fibrillation) (HCC) DEVICE EVALUATION - REMOTE ILR Routine 11/23/2022 1:22 PM CDT PAF (paroxysmal atrial fibrillation) (HCC) DEVICE EVALUATION - REMOTE ILR Routine 11/23/2022 1:08 PM CDT PAF (paroxysmal atrial fibrillation) (HCC) DEVICE EVALUATION - REMOTE ILR CHARGES Routine 11/19/2022 1:07 PM CDT PAF (paroxysmal atrial fibrillation) (HCC) documented in this encounter Results * DEVICE EVALUATION - REMOTE ILR NO CHARGES (03/23/2023 12:03 PM CDT) Device Type ILR MURJ Generator Municipal Services Manager spigit MURJ Generator Model # LNQ11 MURJ Generator Serial # [id number] MURJ Generator Implnat Date 20200301 MURJ On [...] Miller MD HEART RHYTHM MANAGEM ENT ORDERABLES * DEVICE EVALUATION - REMOTE ILR NO CHARGES (12/22/2022 7:34 AM CDT) Device Type ILR MURJ Generator Municipal Services Manager Medtronic MURJ Generator Model # LNQ11 MURJ Generator Serial # [id number] MURJ Generator Implnat Date 20200301 MURJ On [...] Miller MD HEART RHYTHM MANAGEM ENT ORDERABLES * DEVICE EVALUATION - REMOTE ILR NO CHARGES (12/22/2022 7:25 AM CDT) Device Type ILR MURJ Generator Municipal Services Manager [employer] MURJ Generator Model # LNQ11 MURJ Generator Serial # [id number] MURJ Generator Implnat Date 20200301 MURJ On [...] Miller MD HEART RHYTHM MANAGEM ENT ORDERABLES * DEVICE EVALUATION - REMOTE ILR CHARGES (12/20/2022 8:02 AM CDT) Device Type ILR MURJ Generator Municipal Services Manager [employer] MURJ Generator Model # LNQ11 MURJ Generator Serial # [id number] MURJ Generator Implnat Date 20200301 MURJ On [...] Miller MD HEART RHYTHM MANAGEM ENT ORDERABLES * DEVICE EVALUATION - REMOTE ILR NO CHARGES (12/01/2022 7:53 AM CDT) Device Type ILR MURJ Generator Municipal Services Manager [employer] MURJ Generator Model # LNQ11 MURJ Generator Serial # [id number] MURJ Generator Implnat Date 20200301 MURJ On [...] Miller MD HEART RHYTHM MANAGEM ENT ORDERABLES * DEVICE EVALUATION - REMOTE ILR NO CHARGES (11/26/2022 8:49 AM CDT) Device Type ILR MURJ Generator Municipal Services Manager spigit MURJ Generator Model # LNQ11 MURJ Generator Serial # [id number] MURJ Generator Implnat Date 20200301 MURJ On [...] rates appear to be 100s-120s Title: Alert: Yellow EP RN notified of AF Additional Notes: reviewing location remote Reji Miller MD HEART RHYTHM MANAGEM ENT ORDERABLES * DEVICE EVALUATION - REMOTE ILR NO CHARGES (11/24/2022 8:35 AM CDT) Pathologist [facility] Device Type ILR MURJ Generator Municipal Services Manager [employer] MURJ Generator Model # LNQ11 MURJ Generator Serial # [id number] MURJ Generator Implnat Date 20200301 MURJ On Anticoagulation yes MURJ Anatomical Region Laterality Modality MAC CV Heart Rhy thm 11/24/2022 12:0 5 AM CDT Narrative 11/24/2022 12:09 PM CDT Title: Tachycardia: AF * Stored EGMs are consistent with or suggestive of Atrial Fibrillation lasting 5 hours 22 minutes with avg V rate of 11 bpm * Total episodes: 1 * AT burden: 54.93% Additional Notes: reviewing location remote Title: Oversensing * Stored EGMs are consistent with or suggestive of oversensing of the baseline ECG rhythm * No new clinically significant arrhythmia Reji Miller MD HEART RHYTHM MANAGEM ENT ORDERABLES * DEVICE EVALUATION - REMOTE ILR NO CHARGES (11/23/2022 1:23 PM CDT) Pathologist [facility] Device Type ILR MURJ Generator Municipal Services Manager [employer] MURJ Generator Model # LNQ11 MURJ Generator Serial # [id number] MURJ Generator Implnat Date 20200301 MURJ On Anticoagulation yes MURJ Anatomical Region Laterality Modality [facility] CV Heart Rhy thm 11/08/2022 6:3 1 PM CDT Narrative 12/09/2022 11:06 AM CDT Title: Alert: Roman EP RN notified of AF Additional Notes: reviewing location remote Title: Tachycardia: AF * Stored EGMs are consistent with or suggestive of Atrial Fibrillation ongoing since 11/08 @ 0659 with avg V rate of 90 bpm Additional Notes: reviewing location remote Reji Miller MD HEART RHYTHM MANAGEM ENT ORDERABLES * DEVICE EVALUATION - REMOTE ILR NO CHARGES (11/23/2022 1:22 PM CDT) Device Type ILR MURJ Generator Municipal Services Manager [employer] MURJ Generator Model # LNQ11 MURJ Generator Serial # [id number] MURJ Generator Implnat Date 20200301 MURJ On Anticoagulation yes MURJ Anatomical Region Laterality Modality MAC CV Heart Rhy thm 10/30/2022 12:0 5 AM CDT Narrative 11/24/2022 12:23 PM CDT Title: Alert: Yellow EP RN notified of pause event Additional Notes: reviewing location remote remote update delay d/t MURJ/[facility] outage Title: Pause * Stored EGMs are consistent with or suggestive of a Pause * Total episodes: 1 SB with PVCs and 3.5 second pause Reji Miller MD HEART RHYTHM MANAGEM ENT ORDERABLES * DEVICE EVALUATION - REMOTE ILR NO CHARGES (11/23/2022 1:08 PM CDT) Device Type ILR MURJ Generator Municipal Services Manager [employer] MURJ Generator Model # LNQ11 MURJ Generator Serial # [id number] MURJ Generator Implnat Date 20200301 MURJ On Anticoagulation yes MURJ Anatomical Region Laterality Modality MAC CV Heart Rhy thm 11/22/2022 12:0 5 AM CDT Narrative 12/09/2022 11:06 AM CDT Title: Tachycardia: AF * Stored EGMs are consistent with or suggestive of Atrial Fibrillation lasting 2 hours 36 minutes with avg V rate of 128 bpm * Total episodes: 1 * AT burden: 9.12% Title: Alert: Roman EP RN notified of AF Additional Notes: reviewing location remote Reji Miller MD HEART RHYTHM MANAGEM ENT ORDERABLES * DEVICE EVALUATION - REMOTE ILR CHARGES (11/19/2022 1:07 PM CDT) Device Type ILR MURJ Generator Municipal Services Manager [employer] MURJ Generator Model # LNQ11 MURJ Generator Serial # [id number] MURJ Generator Implnat Date 20200301 MURJ On Anticoagulation yes MURJ Anatomical Region Laterality Modality MAC CV Heart Rhy thm 11/19/2022 12:0 5 AM CDT Narrative 11/24/2022 12:15 PM CDT Title: Normal Remote: No Events * This is a normal remote diagnostic device check * Alerts or events: None * Battery data was reviewed * Battery status: OK, * Presenting rhythm reviewed * Heart Rate Histograms reviewed Title: Oversensing * Stored EGMs are consistent with or suggestive of oversensing of the baseline ECG rhythm * No new clinically significant arrhythmia Additional Notes: reviewing location remote Reji Miller MD HEART RHYTHM MANAGEM ENT ORDERABLES documented in this encounter Visit Diagnoses Diagnosis PAF (paroxysmal atrial fibrillation) (HCC)- Primary Atrial fibrillation documented in this encounter Care Teams Binder Operator Relationship Specialty Start Date End Date Cony Poole MD [address] [place] [id number] PCP - General Family Medicine 05/15/22 documented as of this encounter
--- OUTSIDE RECORDS SUMMARY | 2023-04-09 13:00 | XMS REPORT | Encounter Summary ---
Author Author [facility] Organization [facility] Address Unknown Phone Unavailable Care Team Providers Care Promotions Executive Name Role Phone Cony Poole MD PCP [phone] Encounter Details Date Type Department Care Team Description 11/24/2022 8:35 AM CDT - 11/24/2022 11:59 PM CDT Hospital Encounter Cardiovascular Medicine Remote Device Check [phone] Discharge Disposition: Home or Self Care Social [...] Sex Assigned at Female 06/19/2022 10:19 AM CROZER OPERATOR Gender Identity Female 06/19/2022 10:19 AM CROZER OPERATOR Sexual Orientation Straight 06/19/2022 10 :19 AM CROZER OPERATOR documented as of this encounter Medications [...] Code Departure Means Destination Home or Self Group Home documented in this encounter Plan of Treatment Not on file documented as of this encounter Procedures Procedure Name Priority Date/Time Associated Diagnosis Comments DEVICE EVALUATION - REMOTE ILR Routine 11/24/2022 8:35 AM CDT PAF (paroxysmal atrial fibrillation) (HCC) documented in this encounter Results * DEVICE EVALUATION - REMOTE ILR NO CHARGES (11/24/2022 8:35 AM CDT) Device Type ILR MURJ Generator Ship Purser [employer] MURJ Generator Model # LNQ11 MURJ Generator Serial # [id number] MURJ Generator Implnat Date 20200301 MURJ On [...] on filedocumented in this encounter Care Teams Promotions Executive Relationship Specialty [place] [address] [place] [id number] PCP - General Family Medicine 05/15/22 documented as of this encounter
--- OUTSIDE RECORDS SUMMARY | 2023-04-09 13:00 | XMS REPORT | Encounter Summary ---
Author Author [facility] Organization [facility] Address Unknown Phone Unavailable Care Team Providers Care Director External Communications Name Role Phone Cony Poole MD PCP [phone] Reason for Visit * Reason Onset Date Comments Implantable Loop Recorder-Abnormal Results(Rhyth m) 11/23/2022 Encounter Details Date Type Department Care Team Description 11/23/2022 Telephone Cardiovascular Medicine: [facility] [address] [facility] [address] [place] [address] Tamia Paul RN Implantable Loop Recorder-Abnormal Results(Rhythm) Social History Tobacco [...] Sex Assigned at Female 06/19/2022 10:19 AM EQUIPMENT MAINTENANCE TECHNICIAN Gender Identity Female 06/19/2022 10:19 AM EQUIPMENT MAINTENANCE TECHNICIAN Sexual Orientation Straight 06/19/2022 10 :19 AM EQUIPMENT MAINTENANCE TECHNICIAN documented as of this encounter Miscellaneous Notes * Telephone Encounter - Tamia Paul RN - 11/23/2022 2:18 PM CDT Several ILR reports came through today with new orders. 10/29 3.5 second pause that it looks like mike spoke to local sprinkler fitter about. One showing about 12 hours of Afib on November 08 with controlled V rates. Spoke to pt. On 10/29 she had syncopal episode in the shower when we saw a sinus pause on her remotes. She went to urgent care that day then to the hospital that night and was there for about a week.She was told she had orthostasis. Has had several near syncopal episodes that she can recall. She says her HR is regular today. BP 100-120s/50-80s, HR 80-96. Med list updated from hospitalization. Pt has our number if she has further issues/concerns. * Telephone Encounter - Tamia Paul RN - 11/23/2022 2:17 PM CDT ----- Message from Kaila Stock sent at 11/23/2022 10:03 AM CDT ----- Regarding: MERI DALTON AF event- see PDF documented in this encounter Plan of Treatment Not on file documented as of this encounter Visit Diagnoses Not on filedocumented in this encounter Discontinued Medications Medication Sig Discontinue Reason Start Date End Da te hydrALAZINE (APRESOLINE) 10 mg tablet Take one tablet by mouth twice daily. Per Provider 07/30/2022 11/23/2022 losartan (COZAAR) 50 mg tablet Take 50 mg by mouth twice daily. Per Provider 11/23/2022 metoprolol succinate XL (TOPROL XL) 100 mg extended release tablet Take 100 mg by mouth daily. Per Provider 11/23/2022 documented as of this encounter Historical Medications * This list may reflect changes made after this encounter. Medication Sig Dispensed Refills Start Date End Date magnesium oxide (MAGOX) 400 mg (241.3 mg magnesium) tablet Take one tablet by mouth at bedtime daily. 0 flecainide (TAMBOCOR) 100 mg tablet Take one tablet by mouth twice daily. 0 11/17/2022 dilTIAZem CD (CARDIZEM CD) 180 mg capsule Take one capsule by mouth daily. 0 11/17/2022 added in this encounter Care Teams Director External Communications Relationship Specialty Start Date End Date Cony Poole MD [address] [place], [place] [phone] PCP - General Family Medicine 05/15/22 documented as of this encounter
--- OUTSIDE RECORDS SUMMARY | 2023-04-09 13:00 | XMS REPORT | Encounter Summary ---
Author Author [facility] Organization [facility] Address Unknown Phone Unavailable Care Team Providers Care Management Manager Name Role Phone Cony Poole MD PCP [phone] Encounter Details Date Type Department Care Team Description 11/23/2022 1:07 PM CDT - 11/23/2022 11:59 PM CDT Hospital Encounter Cardiovascular Medicine Remote Device Check [phone] Discharge Disposition: Home or Self Care Social [...] Sex Assigned at Female 06/19/2022 10:19 AM INTERFACE ANALYST Gender Identity Female 06/19/2022 10:19 AM INTERFACE ANALYST Sexual Orientation Straight 06/19/2022 10 :19 AM INTERFACE ANALYST documented as of this encounter Medications at [...] Code Departure Means Destination Home or Self Intermediate documented in this encounter Plan of Treatment Not on file documented as of this encounter Procedures Procedure Name Priority Date/Time Associated Diagnosis Comments DEVICE EVALUATION - REMOTE ILR CHARGES Routine 11/19/2022 1:07 PM CDT PAF (paroxysmal atrial fibrillation) (HCC) documented in this encounter Results * DEVICE EVALUATION - REMOTE ILR CHARGES (11/19/2022 1:07 PM CDT) Device Type ILR MURJ Generator Collections Technician [employer] MURJ Generator Model # [id number] MURJ Generator Serial # [id number] MURJ Generator Implnat Date 20200301 MURJ On [...] on filedocumented in this encounter Care Teams Management Manager Relationship Specialty Start Date End Date Cony Poole MD [address] [place] [id number] PCP - General Family Medicine 05/15/22 documented as of this encounter
--- OUTSIDE RECORDS SUMMARY | 2023-04-09 13:00 | XMS REPORT | Encounter Summary ---
Author Author [facility] Organization [facility] Address Unknown Phone Unavailable Care Team Providers Care Railcar Mechanic Name Role Phone Cony Poole MD PCP [phone] Reason for Visit * Reason Onset Date Comments Follow-up Phone Call 11/09/2022 Encounter Details Date Type Department Care Team Description 11/09/2022 Telephone Cardiovascular Medicine: [facility] [address] [facility] [address] [place] [address] Mckenna Kulkarni, PIETER Follow-up Phone Call Social History Tobacco Use Types Packs/Day Years [...] Sex Assigned at Female 06/19/2022 10:19 AM AUTOMOTIVE PARTS COUNTER ASSISTANT Gender Identity Female 06/19/2022 10:19 AM AUTOMOTIVE PARTS COUNTER ASSISTANT Sexual Orientation Straight 06/19/2022 10 :19 AM AUTOMOTIVE PARTS COUNTER ASSISTANT documented as of this encounter Miscellaneous Notes * Telephone Encounter - Adriana Fajardo BSN - 11/09/2022 3:07 PM CDT ILR reports faxed at this time. * Telephone Encounter - Mckenna Kulkarni RN - 11/09/2022 9:05 AM CDT Called Richard at Dr. Smith office, pt is hospitalized for syncopal episode in [place], [place] and they would like a copy of the device transmission reports faxed to them at [phone].The reports have not yet uploaded to chart, I have reached out to the device team for assistance. * Telephone Encounter - Mckenna Kulkarni RN - 11/09/2022 9:05 AM CDT Richard from Dr. Smith office called wanting to speak to MPE Nurse about [place] Patient. Please call @ [phone] * Telephone Encounter - Mckenna Kulkarni RN [...] on filedocumented in this encounter Care Teams Railcar Mechanic Relationship Specialty Start Date End Date Cony Poole MD [address] [place], [place] [phone] PCP - General Family Medicine 05/15/22 documented as of this encounter
[2023-04-09] MEDS ORDERED: diphenhydrAMINE INJ 50 MG/ML VIAL IVP PRN ×2 (13:30→21:00)
[2023-04-09] MEDS ORDERED: ANTACID SUSPENSION 30 ML UDC PO PRN ×2 (13:30→21:00)
[2023-04-09] MEDS ORDERED: ACETAMINOPHEN 325 MG TABLET PO PRN ×2 (13:30→21:00)
[2023-04-09] MEDS ORDERED: ONDANSETRON 4 MG ORAL DISSOLVE TABLET PO PRN ×2 (13:30→21:00)
[2023-04-09] MEDS ORDERED: MILK OF MAGNESIA 400 MG/5 ML 30 ML UDC PO PRN ×2 (13:30→21:00)
[2023-04-09] MEDS ORDERED: ONDANSETRON INJECTION 4 MG/2 ML (SDV) IV PRN ×2 (13:30→21:00)
[2023-04-09] MEDS ORDERED: NALOXONE 0.4 MG/ML 1 ML VIAL IV PRN (13:30)
[2023-04-09] MEDS ORDERED: LACTULOSE SYRUP 10GM/15ML 30ML UDC PO PRN ×2 (13:30→21:00)
[2023-04-09] MEDS ORDERED: CALCIUM CARBONATE 500 MG CHEW TABLET PO PRN ×2 (13:30→21:00)
[2023-04-09] MEDS ORDERED: MELATONIN 3 MG TABLET PO PRN ×2 (13:30→21:00)
[2023-04-09] MEDS ORDERED: BISACODYL 10 MG SUPPOSITORY PR PRN ×2 (13:30→21:00)
[2023-04-09] MEDS ORDERED: diphenhydrAMINE 25 MG TABLET PO PRN (13:30)
[2023-04-09 13:31] VITALS: BP 178/73
[2023-04-09 13:53] LABS: BASOPHILS # (AUTO) 0.1 10^3/uL (0.0-0.1); BASOPHILS % (AUTO) 1 % (0-10); EOSINOPHILS # (AUTO) 0.3 10^3/uL (0.0-0.3); EOSINOPHILS % (AUTO) 4 % (0-10); HEMATOCRIT 35 % (35-52); HEMOGLOBIN 11.3 g/dL (11.5-16.0); LYMPHOCYTES # (AUTO) 1.5 10^3/uL (1.0-4.0); LYMPHOCYTES % (AUTO) 20 % (12-44); MEAN CORPUSCULAR HEMOGLOBIN 30 pg (25-34); MEAN CORPUSCULAR HGB CONC 32 g/dL (32-36); MEAN CORPUSCULAR VOLUME 93 fL (80-99); MONOCYTES # (AUTO) 0.6 10^3/uL (0.0-1.0); MONOCYTES % (AUTO) 8 % (0-12); NEUTROPHILS # (AUTO) 4.9 10^3/uL (1.8-7.8); NEUTROPHILS % (AUTO) 66 % (42-75); PLATELET COUNT 247 10^3/uL (130-400); WHITE BLOOD COUNT 7.4 10^3/uL (4.3-11.0)
--- NOTE | 2023-04-09 13:53 | History & Physicial ---
AGUSTO LEA MD, RESIDENT 04/09/23 1353: History of Present Illness History of Present Illness Reason for visit/HPI CC: Blindness Patient presents as a direct admit from ophthalmology clinic for concerns for giant cell arteritis. Patient states that she has been having changes in her vision that started Wednesday. She notes that on Wednesday it started with her right eye where she noted some cloudiness at the bottom of her eye. She states this progressed into being red-colored with dots the next day. She also notes that she had similar findings in her left eye and then began to lose the ability to see. She was evaluated by ophthalmology today who was concerned for giant cell arteritis versus stroke and thus sent her to the hospital for further work-up. She has a history of atrial fibrillation, hypothyroidism, has a loop recorder in place. She has been hospitalized multiple times for various reasons in the past year. 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 Is also on a blood thinner due to her atrial fibrillation but has not been on it for the last 3 months and has not been restarted on this medication yet. Denies any other symptoms at this time other than a runny nose. Date of Admission Apr 09, 2023 at 12:55 Date Seen by a Provider: Apr 09, 2023 Time Seen by a Provider: 13:45 I consulted on this patient on 04/09/23 13:53 Attending Physician Cony Poole DO Admitting Physician Admitting Physician: Melina Beauchamp DO Attending Physician: Melina Beauchamp DO Consult Allergies and Home Medications Allergies Coded Allergies: codeine (Unverified Allergy, Mild, Vomiting, 02/18/22) adhesive tape (Unverified Allergy, Unknown, 02/18/22) amoxicillin (Unverified Allergy, Unknown, 02/01/23) PT HAS TOLERATED CEPHALOSPORINS IN PAST (ROCEPHIN, CEFEPIME, CEFDINIR) Patient Home Medication List Home Medication List Reviewed: Yes Acetaminophen (Tylenol) 325 Mg Tablet, 325 MG PO Q4H PRN for PAIN-MILD (1-4) Prescribed by: MELINA BEAUCHAMP on 02/04/23 1158 Albuterol Sulfate (Ventolin Hfa) 1 Puff Puff, 2 PUFF INH Q4H PRN for SHORTNESS OF BREATH Prescribed by: MELINA BEAUCHAMP on 02/04/231157 Aspirin (Aspirin EC) 81 Mg Tablet.dr, 81 MG PO HS Prescribed by: MELINA BEAUCHAMP on 02/04/231157 Atorvastatin Calcium (Atorvastatin Calcium) 20 Mg Tablet, 20 MG PO HS Prescribed by: MELINA BEAUCHAMP on 02/04/231157 Bethanechol Chloride (Bethanechol Chloride) 25 Mg Tablet, 25 MG PO Q12H Prescribed by: MELINA BEAUCHAMP on 02/04/231157 Bifidobacterium Infantis (Align Jr) 10.5 Mg (10 Million Cell) Tab.chew, 10.5 MG PO HS Prescribed by: MELINA BEAUCHAMP on 02/04/231157 Budesonide (Budesonide) 0.5 Mg/2 Ml Ampul.neb, 0.5 MG IH Q12H Prescribed by: MELINA BEAUCHAMP on 02/04/231157 Cholecalciferol (Vitamin D3) (Vitamin D3) 50 Mcg (2000 Unit) Capsule, 50 MCG PO DAILY Prescribed by: MELINA BEAUCHAMP on 02/04/231157 Cyanocobalamin (Vitamin B-12) (Vitamin B-12) 500 Mcg Tablet, 500 MCG PO HS Prescribed by: MELINA BEAUCHAMP on 02/04/231157 Docusate Sodium (Colace) 100 Mg Capsule, 100 MG PO DAILY Prescribed by: MELINA BEAUCHAMP on 02/04/231157 Formoterol Fumarate (Formoterol Fumarate) 20 Mcg/2 Ml Vial.neb, 20 MCG IH Q12H Prescribed by: MELINA BEAUCHAMP on 02/04/231157 Furosemide (Lasix) 40 Mg Tablet, 20 MG PO Q48H Prescribed by: MELINA BEAUCHAMP on 02/04/231157 Ipratropium/Albuterol Sulfate (Iprat-Albut 0.5-3(2.5) mg/3 ml) 0.5 Mg-3 Mg (2.5 Mg Base)/3 Ml Ampul.neb, 3 ML IH Q4H PRN for SHORTNESS OF BREATH Prescribed by: MELINA BEAUCHAMP on 02/04/231157 Levothyroxine Sodium (Synthroid) 75 Mcg Tablet, 75 MCG PO MO,WE,FR Prescribed by: MELINA BEAUCHAMP on 02/04/231157 Levothyroxine Sodium (Synthroid) 88 Mcg Tablet, 88 MCG PO CHAVEZ,,,SA Prescribed by: MELINA BEAUCHAMP on 02/04/231157 Pantoprazole Sodium (Pantoprazole Sodium) 40 Mg Tablet.dr, 40 MG PO BID Prescribed by: MELINA BEAUCHAMP on 02/04/231157 Polyethylene Glycol 3350 (Miralax) 17 Gram Powd.pack, 17 GM PO DAILY Prescribed by: MELINA BEAUCHAMP on 02/04/231157 Potassium Chloride (Klor-Con M20) 20 Meq Tab.er.prt, 20 MEQ PO DAILY Prescribed by: MELINA BEAUCHAMP on 02/04/231157 Sertraline HCl (Sertraline HCl) 25 Mg Tablet, 12.5 MG PO HS Prescribed by: MELINA BEAUCHAMP on 02/04/231157 Past Mxogkvt-Jfluxl-Vmrxox Hx Patient Social History Former Smoker, Quit: Nov 26, 1984 Recent Hopitalizations: No Immunizations Up To Date Tetanus Booster (TDap): Unknown Date of Pneumonia Vaccine: Jan 13, 2016 Date of Influenza Vaccine: May 28, 2021 Seasonal Allergies Seasonal Allergies: No Surgeries Yes (BASAL CELL CA REMOVED, SX FOR ENDOMETRIOSIS) Cardiac, Vascular Surgery Respiratory Yes COPD, Pneumonia Currently Using CPAP: No Currently Using BIPAP: No Cardiovascular Yes (LBBB) Atrial Fibrillation, Chronic Edema/Swelling, High Cholesterol, Hypertension Neurological No Reproductive System Hx Reproductive Disorders: No Genitourinary Yes Kidney Infection, Bladder Infection Gastrointestinal No Musculoskeletal Yes (FALLS, GEN WEAKNESS, DIFFICULTY WALKIKNG. ) Endocrine History of Endocrine Disorders: Yes Endocrine Disorders: Hypothyroidsim HEENT History of HEENT Disorders: Yes (CATARACTS REMOVED) HEENT Disorders: Cataract Hearing Impairment: Hard of Hearing Cancer Yes Skin Did You Recieve Any Treatments: Yes Type of Treatment: Surgical Intervention Psychosocial History of Psychiatric Problem: Yes Behavioral Health Disorders: Sleep Difficulties, Anxiety Integumentary History of Skin or Integumenta: No Blood Transfusions History of Blood Disorders: No Adverse Reaction to a Blood Tr: No Family Medical History Significant Family History: Asthma, Cancer, Diabetes, Hypertension Family Hx: Asthma Colon cancer Deafness or hearing loss Diabetes mellitus Hypertension Neoplasm Thyroid disease Review of Systems Constitutional: No no symptoms reported EENTM: blurred vision, nose congestion Respiratory: No cough, No dyspnea on exertion, No short of breath Cardiovascular: No chest pain, No edema, No palpitations Gastrointestinal: No abdominal pain, No constipation, No diarrhea, No nausea, No vomiting Genitourinary: No dysuria Musculoskeletal: No no symptoms reported Skin: No no symptoms reported Psychiatric/Neurological: Denies No Symptoms Reported Physical Exam Vital Signs Vital Signs - First Documented 04/09/23 13:31 Pulse 82 Resp 20 B/P (MAP) 178/73 (108) Pulse Ox 96 O2 Delivery Room Air Capillary Refill : Height, Weight, BMI Height: 5'3.50" Weight: 157lbs. 0.9oz. 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 Plan: Obtain CT head to rule out stroke Obtain MRI and MRA head to rule out any sinus related problems Starting Solu-Medrol 500 mg daily due to giant cell arteritis concerns Obtaining inflammatory labs, D-dimer Consulted general surgery for possible temporal artery biopsy on Wednesday with Dr. Tracy (2) Chronic heart failure with preserved ejection fraction (HFpEF) Status: Chronic Assessment & Plan: We will continue home meds once med rec has been completed. 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 Lopez cardiology. (3) Primary hypertension Status: Chronic Assessment & Plan: We will restart home meds once med rec has been completed. (4) Paroxysmal atrial fibrillation Status: Chronic Assessment & Plan: Monitor on telemetry given stroke concerns. We will restart home meds once med rec is been completed. Admission Diagnosis Admission Status: Inpatient Order (span 2 midnights) Reason for Inpatient Admission: Blindness, concern for giant cell arteritis MELINA BEAUCHAMP DO 04/10/23 0613: History of Present Illness History of Present Illness Reason for visit/HPI CC: Blindness referred for urgent admit from Dr Barrie Lei [facility] HPI: This is an 83yoWF clinic patient of Dr Poole who is well known to me from multiple admits from COVID to AF RVR episodes who presented as a direct admit from Dr Barrie Lei office in [place] due to concern for giant cell arteritis versus sinus venous thrombosis as sources of severe decreased vision. She can't read due to low vision and this happened relatively abruptly. Papillditis is in the differential since Dr Lei did not see evidence of pappiledema so steroids were indicated along with inflammatory disease w/o and temporal artery biopsy will be performed. Date of Admission 04/09/23 Date Seen by a Provider: Apr 09, 2023 Time Seen by a Provider: 18:00 Allergies and Home Medications Allergies Coded Allergies: codeine (Unverified Allergy, Mild, Vomiting, 02/18/22) adhesive tape (Unverified Allergy, Unknown, 02/18/22) amoxicillin (Unverified Allergy, Unknown, 02/01/23) PT HAS TOLERATED CEPHALOSPORINS IN PAST (ROCEPHIN, CEFEPIME, CEFDINIR) Patient Home Medication List Home Medication List Reviewed: Yes Acetaminophen (Tylenol) 325 Mg Tablet, 325 MG PO Q4H PRN for PAIN-MILD (1-4) Prescribed by: MELINA BEAUCHAMP on 02/04/23 1158 Albuterol Sulfate (Ventolin Hfa) 1 Puff Puff, 2 PUFF INH Q4H PRN for SHORTNESS OF BREATH Prescribed by: MELINA BEAUCHAMP on 02/04/23 1158 Aspirin (Aspirin EC) 81 Mg Tablet.dr, 81 MG PO HS Prescribed by: MELINA BEAUCHAMP on 02/04/23 1158 Atorvastatin Calcium (Atorvastatin Calcium) 20 Mg Tablet, 20 MG PO HS Prescribed by: MELINA BEAUCHAMP on 02/04/23 1158 Bethanechol Chloride (Bethanechol Chloride) 25 Mg Tablet, 25 MG PO Q12H Prescribed by: MELINA BEAUCHAMP on 02/04/23 1158 Bifidobacterium Infantis (Align Jr) 10.5 Mg (10 Million Cell) Tab.chew, 10.5 MG PO HS Prescribed by: MELINA BEAUCHAMP on 02/04/231157 Budesonide (Budesonide) 0.5 Mg/2 Ml Ampul.neb, 0.5 MG IH Q12H Prescribed by: MELINA BEAUCHAMP on 02/04/231157 Cholecalciferol (Vitamin D3) (Vitamin D3) 50 Mcg (2000 Unit) Capsule, 50 MCG PO DAILY Prescribed by: MELINA BEAUCHAMP on 02/04/231157 Cyanocobalamin (Vitamin B-12) (Vitamin B-12) 500 Mcg Tablet, 500 MCG PO HS Prescribed by: MELINA BEAUCHAMP on 02/04/231157 Docusate Sodium (Colace) 100 Mg Capsule, 100 MG PO DAILY Prescribed by: MELINA BEAUCHAMP on 02/04/231157 Formoterol Fumarate (Formoterol Fumarate) 20 Mcg/2 Ml Vial.neb, 20 MCG IH Q12H Prescribed by: MELINA BEAUCHAMP on 02/04/231157 Furosemide (Lasix) 40 Mg Tablet, 20 MG PO Q48H Prescribed by: MELINA BEAUCHAMP on 02/04/231157 Ipratropium/Albuterol Sulfate (Iprat-Albut 0.5-3(2.5) mg/3 ml) 0.5 Mg-3 Mg (2.5 Mg Base)/3 Ml Ampul.neb, 3 ML IH Q4H PRN for SHORTNESS OF BREATH Prescribed by: MELINA BEAUCHAMP on 02/04/231157 Levothyroxine Sodium (Synthroid) 75 Mcg Tablet, 75 MCG PO MO,,FR Prescribed by: MELINA BEAUCHAMP on 02/04/231157 Levothyroxine Sodium (Synthroid) 88 Mcg Tablet, 88 MCG PO CHAVEZ,,,SA Prescribed by: MELINA BEAUCHAMP on 02/04/231157 Pantoprazole Sodium (Pantoprazole Sodium) 40 Mg Tablet.dr, 40 MG PO BID Prescribed by: MELINA BEAUCHAMP on 02/04/231157 Polyethylene Glycol 3350 (Miralax) 17 Gram Powd.pack, 17 GM PO DAILY Prescribed by: MELINA BEAUCHAMP on 02/04/231157 Potassium Chloride (Klor-Con M20) 20 Meq Tab.er.prt, 20 MEQ PO DAILY Prescribed by: MELINA BEAUCHAMP on 8/31/23 1158 Sertraline HCl (Sertraline HCl) 25 Mg Tablet, 12.5 MG PO HS Prescribed by: MELINA BEAUCHAMP on 02/04/23 1158 Past Niqirdn-Ahcjhw-Opyckn Hx Patient Social History Marrital Status: single Employed/Student: retired Smoking Status: Never a Smoker Respiratory Pneumonia Cardiovascular Atrial Fibrillation, Coronary Artery Disease Genitourinary Kidney Infection, Bladder Infection Family Medical History Family Hx: Asthma Colon cancer Deafness or hearing loss Diabetes mellitus Hypertension Neoplasm Thyroid disease Review of Systems Constitutional: see HPI, malaise, weakness EENTM: blurred vision, double vision, vision loss Respiratory: no symptoms reported Cardiovascular: no symptoms reported Gastrointestinal: no symptoms reported Genitourinary: no symptoms reported Musculoskeletal: no symptoms reported Skin: no symptoms reported Psychiatric/Neurological: No Symptoms Reported All Other Systems Reviewed Negative Unless Noted: Yes Physical Exam General Appearance: No Apparent Distress, WD/WN, Chronically ill, Thin Eyes: Bilateral Eye Normal Inspection, Bilateral Eye PERRL, Bilateral Eye EOMI HEENT: PERRL/EOMI, Normal ENT Inspection, Pharynx Normal Neck: Full Range of Motion, Normal Inspection, Non Tender, Supple, Carotid Bruit Respiratory: Chest Non Tender, Lungs Clear, Normal Breath Sounds, No Accessory Muscle Use, No Respiratory Distress Cardiovascular: Regular Rate, Rhythm, No Edema, No Gallop, No JVD, No Murmur, Normal Peripheral Pulses Gastrointestinal: Normal Bowel Sounds, No Organomegaly, No Pulsatile Mass, Non Tender, Soft Back: Normal Inspection, No CVA Tenderness, No Vertebral Tenderness Extremity: Normal Capillary Refill, Normal Inspection, Normal Range of Motion, Non Tender, No Calf Tenderness, No Pedal Edema Neurologic/Psychiatric: Alert, Oriented x3, No Motor/Sensory Deficits, Normal Mood/Affect Skin: Normal Color, Warm/Dry Lymphatic: No Adenopathy Assessment/Plan Assessment and Plan Assessment: Abrupt vision loss referred from [facility] office after exam h/o severe anemia Hx of hypercapnic respiratory failure requiring BiPAP Chronic lower extremity edema COPD h/o Afib w/ RVR hx status post cardioconversion Hypothyroidism Anxiety HTN Plan: Steroids Admit Temporal artery biopsy Wednesday Home meds Anticoagulation Admission Diagnosis Admission Status: Inpatient Order (span 2 midnights) Reason for Inpatient Admission: abrupt blindness AGUSTO LEA MD, RESIDENT Apr 09, 2023 13:53 MELINA BEAUCHAMP DO Apr 10, 2023 06:13
[2023-04-09 14:04] LABS: ALBUMIN 3.5 GM/DL (3.2-4.5); POTASSIUM 3.8 MMOL/L (3.6-5.0)
[2023-04-09 14:06] LABS: CALCIUM 8.8 MG/DL (8.5-10.1); PROTHROMBIN TIME PATIENT 13.5 SEC (12.2-14.7)
[2023-04-09 14:07] LABS: TOTAL PROTEIN 6.7 GM/DL (6.4-8.2)
[2023-04-09 14:09] LABS: BILIRUBIN,TOTAL 0.5 MG/DL (0.1-1.0); FIBRIN DEGRADATION PRODUCTS 1.31 UG/ML (0.00-0.49)
[2023-04-09 14:10] LABS: PHOSPHORUS 3.6 MG/DL (2.3-4.7)
[2023-04-09 14:11] LABS: CREATININE SERUM 0.95 MG/DL (0.60-1.30)
[2023-04-09 14:14] LABS: ERYTHROCYTE SEDIMENTATION RATE 19 MM/HR (0-30)
--- NOTE | 2023-04-09 14:14 | Diagnostic Imaging Report ---
EXAMINATION: CT head without contrast. TECHNIQUE: Multiple contiguous axial images were obtained through the brain without the use of intravenous contrast. All CT scans use one or more of the following dose optimizing techniques: Automated exposure control, MA and/or KvP adjustment based on patient size and exam type or iterative reconstruction. HISTORY: Loss of vision in the right eye. Vision loss in the left eye now. COMPARISON: 01/29/2023. FINDINGS: No large acute territorial ischemia, mass, or hemorrhage. No midline shift or mass effect. Decreased attenuation is seen in the periventricular and subcortical white matter. The ventricles and cortical sulci are prominent. The basilar cisterns are patent and unremarkable. The orbits are normal. Paranasal sinuses are normal. Mastoid air cells are clear. No soft tissue abnormality is seen. No osseous lesions or fractures are seen. IMPRESSION: 1. No large acute territorial ischemia, mass, or hemorrhage. 2. Chronic microvascular disease. 3. Generalized parenchymal volume loss. Dictated by: Dictated on workstation # [id number]
[2023-04-09] MEDS ORDERED: GADOTERATE 0.5 MMOL/ML (CLARISCAN) 15 ML VIAL IV ONE (14:30)
[2023-04-09] MEDS: ACETAMINOPHEN 500 MG TABLET PO SCH ×2 (15:00→23:13)
--- NOTE | 2023-04-09 15:44 | Diagnostic Imaging Report ---
PROCEDURE: MR angiography of the brain without the use of contrast. TECHNIQUE: 3D [id number] non contrast enhanced MR angiography of the head was performed. A source data was reformatted into rotating MIP projections. DATE: April 09, 2023. INDICATION: 83-year-old female, decreased vision. COMPARISON: CT head without contrast April 09, 2023. FINDINGS: The imaged portions of the left internal carotid artery are patent. The left middle cerebral artery is patent. The left anterior cerebral artery is patent. The right anterior cerebral artery is very small in caliber in its A1 segment and predominantly supplied via patent anterior communicating artery. The right A2 segment is patent. The right middle cerebral artery is patent. The imaged portions of the right internal carotid artery are patent. The imaged portions of the bilateral vertebral arteries are patent. The basilar artery is patent. There is a right posterior communicating artery predominantly supplying blood flow to the right posterior cerebral artery which is patent. The left posterior cerebral artery is patent. There is no identified aneurysm. IMPRESSION: 1. 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 The right anterior cerebral artery is predominantly supplied via a patent anterior communicating artery which is patent. 2. Additional arterial head vasculature is patent with the right posterior cerebral artery being supplied predominantly via a right posterior communicating artery. 3. No identified aneurysm. Dictated by: Dictated on workstation # [id number]
[2023-04-09 15:45] VITALS: BP 178/80
[2023-04-09] MEDS ORDERED: NS 100 ML (IVPB) BAG IV ONE (16:00)
[2023-04-09] MEDS ORDERED: IOHEXOL 350 MG/ML 100 ML (OMNIPAQUE 350) VIAL IV ONE (16:00)
[2023-04-09] MEDS ORDERED: HOLD METFORMIN - RECEIVED CONTRAST 20 ML VIAL IV SCH (16:00)
[2023-04-09] MEDS ORDERED: CATHETER FLUSH 10 ML SYR IV PRN (16:00)
--- NOTE | 2023-04-09 16:01 | Diagnostic Imaging Report ---
PROCEDURE: MR imaging of the brain with and without contrast. TECHNIQUE: Multiplanar, multisequence MR imaging of the brain was performed with and without contrast. DATE: April 09, 2023. COMPARISON: CT head without contrast April 09, 2023. HISTORY: 83-year-old female, decreased vision. FINDINGS: There is no restricted diffusion. There are no areas of abnormal intracranial susceptibility. There is proportional prominence of the ventricles and additional CSF spaces, consistent with moderate cerebral volume loss. There is no abnormal extra axial fluid collection. There is no acute intracranial hemorrhage. There is no mass effect or midline shift. There are extensive areas of confluent T2 and FLAIR hyperintense signal in the periventricular and subcortical white matter as well as T2 hyperintense foci within the bhaskar. These are nonspecific but may reflect extensive findings of chronic small vessel ischemic disease. There are some motion limitations on the post contrast images. There is no identified area of abnormal intracranial enhancement. There is no enhancement of the optic nerves. There is no identified suprasellar mass. The optic chiasm is unremarkable in appearance. There is no abnormal fluid in the optic nerve sheaths. There is no cupping of the optic discs. The globes are grossly unremarkable in appearance. There is no identified abnormality of the extraocular muscles. There is partial opacification in the right mastoid air cells. The paranasal sinuses are well-aerated. IMPRESSION: 1. No evidence of an acute infarct or other acute intracranial abnormality. 2. Moderate cerebral volume loss with probable extensive findings of chronic small vessel ischemic disease. 3. No abnormal enhancement of the optic nerves or apparent abnormality within the orbits on standard MRI brain protocol without and with intravenous contrast. Dictated by: Dictated on workstation # [id number]
[2023-04-09] MEDS ORDERED: ENOXAPARIN 40 MG/0.4 ML SYRINGE SC SCH (16:30)
[2023-04-09] MEDS: METHYLPREDNISOLONE SOD SUCC IV SCH (16:38)
[2023-04-09] MEDS: NS IV SCH (16:38)
[2023-04-09] MEDS: IBUPROFEN 200 MG TABLET PO SCH ×2 (17:55→23:49)
--- NOTE | 2023-04-09 18:21 | Diagnostic Imaging Report ---
EXAMINATION: CT angiography of the chest. TECHNIQUE: Contrast enhanced thin section helical images were obtained through the chest with intravenous contrast timed for the optimal opacification of the arterial structures per CTA protocol. Post-processing, reconstructions and interpretation of angiographic images of the vessels was performed. 3D MIP reconstructions were performed and reviewed. All CT scans use one or more of the following dose optimizing techniques: automated exposure control, MA and/or KvP adjustment based on a patient size and exam type, or iterative reconstruction. HISTORY: Atrial fibrillation, elevated D-Dimer. COMPARISON: 04/08/2020. FINDINGS: Vascular: There are no filling defects within the pulmonary arteries. The thoracic aorta is normal in caliber. Thyroid: The thyroid is normal. Mediastinum: Heart size is normal without significant pericardial effusion. No suspicious lymphadenopathy. Lungs and airways: There are bilateral pleural effusions, right greater than left. There are mild groundglass opacities seen within the lungs with some peripheral predominant reticulation or scarring, greatest within the right upper lobe and lung bases. There appears to be some septal thickening in the lung bases. No pneumothorax. Likely mucous plugging is present within the airways. Upper abdomen: The subphrenic structures are normal. Musculoskeletal: Degenerative changes of the spine without suspicious osseous lesion or compression fracture. IMPRESSION: 1. No findings of pulmonary embolus. 2. Bilateral pleural effusions, right greater than left. 3. Groundglass opacities and septal thickening which could be secondary to pulmonary edema or atypical pneumonia. There is some peripheral predominant reticulation, greatest in the right upper lobe, which could be related to consolidation or scarring. Dictated by: Dictated on workstation # [id number]
[2023-04-09 19:36] VITALS: BP 170/76
[2023-04-09] MEDS: DOCUSATE SODIUM 100 MG CAPSULE PO SCH ×2 (20:15→23:14)
[2023-04-09] MEDS: SENNOSIDES 8.6 MG TABLET PO SCH ×2 (20:15→23:14)
[2023-04-09] MEDS ORDERED: cloNIDine 0.1 MG TABLET PO PRN (21:00)
[2023-04-09] MEDS ORDERED: oxyCODONE IMMEDIATE RELEASE 5 MG TABLET PO PRN (21:00)
[2023-04-09] MEDS ORDERED: morphine INJ 4 MG/ML 1 ML (VIAL/SYRINGE) IV PRN (21:00)
[2023-04-09 22:07] VITALS: BP 178/73
[2023-04-09] MEDS ORDERED: RT-Ipratropium/Albuterol NEB 3 ML VIAL INH PRN (22:15)
[2023-04-10] VITALS (7 sets, daily range): BP systolic 127–176; BP diastolic 62–80
[2023-04-10] MEDS: IBUPROFEN 200 MG TABLET PO SCH ×4 (05:31→22:55)
[2023-04-10] MEDS: ACETAMINOPHEN 500 MG TABLET PO SCH ×3 (05:31→20:02)
[2023-04-10 05:38] LABS: POTASSIUM 3.8 MMOL/L (3.6-5.0)
[2023-04-10 05:39] LABS: CALCIUM 8.5 MG/DL (8.5-10.1)
[2023-04-10 05:40] LABS: BASOPHILS % (AUTO) 0 % (0-10); EOSINOPHILS % (AUTO) 0 % (0-10); HEMATOCRIT 31 % (35-52); HEMOGLOBIN 9.9 g/dL (11.5-16.0); LYMPHOCYTES # (AUTO) 0.5 10^3/uL (1.0-4.0); LYMPHOCYTES % (AUTO) 15 % (12-44); MEAN CORPUSCULAR HEMOGLOBIN 30 pg (25-34); MEAN CORPUSCULAR HGB CONC 32 g/dL (32-36); MEAN CORPUSCULAR VOLUME 93 fL (80-99); MEAN PLATELET VOLUME 9.2 fL (9.0-12.2); MONOCYTES % (AUTO) 1 % (0-12); NEUTROPHILS # (AUTO) 2.9 10^3/uL (1.8-7.8); NEUTROPHILS % (AUTO) 84 % (42-75); PLATELET COUNT 260 10^3/uL (130-400); TOTAL PROTEIN 5.7 GM/DL (6.4-8.2); WHITE BLOOD COUNT 3.5 10^3/uL (4.3-11.0)
[2023-04-10 05:42] LABS: BILIRUBIN,TOTAL 0.4 MG/DL (0.1-1.0)
[2023-04-10 05:44] LABS: CREATININE SERUM 0.97 MG/DL (0.60-1.30)
[2023-04-10] MEDS: SENNOSIDES 8.6 MG TABLET PO SCH ×3 (08:40→20:01)
[2023-04-10] MEDS: DOCUSATE SODIUM 100 MG CAPSULE PO SCH ×3 (08:40→20:01)
[2023-04-10 09:02] LABS: CLARITY,URINE CLEAR; COLOR,URINE YELLOW; GLUCOSE, URINE (UA) NEGATIVE (NEGATIVE); KETONES,URINE NEGATIVE (NEGATIVE); PROTEIN,URINE 1+ (NEGATIVE)
[2023-04-10 09:03] LABS: BILIRUBIN,URINE NEGATIVE (NEGATIVE); LEUKOCYTE ESTERASE ,URINE NEGATIVE (NEGATIVE); NITRITE,URINE NEGATIVE (NEGATIVE)
[2023-04-10 09:04] LABS: BACTERIA,URINE TRACE /HPF; SQUAMOUS EPITHELIAL CELL,UR 0-2 /HPF
--- NOTE | 2023-04-10 10:11 | Physical Therapy Evaluation ---
PT Evaluation-General Medical Diagnosis Admission Date Apr 09, 2023 at 12:55 Medical Diagnosis: temporal arteritis Onset Date: Apr 09, 2023 Therapy Diagnosis Therapy Diagnosis: difficulty walking Height/Weight Height (Feet): 5 Height (Inches): 3.50 Weight (Pounds): 157 Weight (Ounces): 0.9 Precautions Precautions/Isolations: Standard Precautions Weight Bear Status Full Weight Bearing Full Weight Bearing Referral Physician: Cassidy Reason for Referral: Evaluation/Treatment Medical History Pertinent Medical History: Atrial Fib, COPD, Heart Failure, HTN, Hypothroidism Social History Home: Single Level Current Living Status: Alone PT Steps Into Home: 4 Prior Prior Level of Function SCALE: Activities may be completed with or without assistive devices. 2-Yazgrkasds-fqliswy completes the activity by him/herself with no assistance from a helper. 5-Set-up or Clean-up Assistance-helper sets up or cleans up; patient completes activity. [place] assists only prior to or following the activity. 4-Supervision or Touching Assistance-helper provides verbal cues and/or touching/steadying and/or contact guard assistance as patient completes activity. Assistance may be provided throughout the activity or intermittently. 3-Partial/Moderate Assistance-helper does LESS THAN HALF the effort. [place] lifts, holds or supports trunk or limbs, but provides less than half the effort. 2-Substantial/Maximal Assistance-helper does MORE THAN HALF the effort. [place] lifts or holds trunk or limbs and provides more than half the effort. 8-Psbrlmcyh-aatwyk does ALL the effort. Patient does none of the effort to complete the activity. Or, the assistance of 2 or more helpers is required for the patient to complete the activity. If activity was not attempted, code reason: 7-Patient Refused. 9-Not Applicable-not attempted and the patient did not perform the activity before the current illness, exacerbation or injury. 10-Not Attempted due to Environmental Limitations-(lack of equipment, weather restraints, etc.). 88-Not Attempted due to Medical Conditions or Safety Concerns. Bed Mobility: 6 Transfers (B,C,W/C): 6 Gait: 6 Stairs: 6 Indoor Mobility (Ambulation): Independent Stairs: Independent Prior Devices Use: Walker PT Evaluation-Current Subjective The patient states that she has been having vision issues for the past week. She states that she was at the eye doctor who thought she might be having a stroke in her eyes and had her admitted. She states that she has had several hospitilizations as well as a IRF and SNF stays and was currently in SNF. Pain Numeric Pain Scale: 0-No Pain ROM/Strength Strength Lower Extremities 3+/5 grossly Sensory Vision: Transfers Roll Left to Right (QC): 5 Sit to Lying (QC): 5 Lying to Sitting/Side of Bed(Q: 5 Sit to Stand (QC): 5 Chair/Nid-be-Biikb Xfer(QC): 5 Gait Does the Patient Walk?: Yes Mode of Locomotion: Walk Anticipated Mode of Locomotion: Walk Walk 10 feet (QC): 5 Walk 50 ft with 2 Turns(QC): 5 Walk 150 ft (QC): 5 Gait Assistive Device: FWW Balance Sitting Static: Normal Sitting Dynamic: Good Standing Static: Fair Standing Dynamic: Fair Assessment/Needs 83 y.o. female with a diagnosis of temporal arteritis. The patient has gait and balance limitations that require skilled therapy. Rehab Potential: Good PT Mcfp Goals Mcfp Goals PT Mcfp Goals Time Frame: Apr 17, 2023 Roll Left & Right (QC): 6 Sit to Lying (QC): 6 Lying-Sitting on Side/Bed(QC): 6 Sit to Stand (QC): 6 Chair/Zig-kw-Hcdli Xfer(QC): 6 Toilet Transfer (QC): 6 Car Transfer (QC): 6 Does the Patient Walk: Yes Walk 10 feet (QC): 6 Walk 50ft with 2 Turns (QC): 6 Walk 150 ft (QC): 6 Walking 10ft on Uneven Surface: 6 1 Step (curb) (QC): 6 4 Steps (QC): 6 12 Steps (QC): 6 Picking up an Object (QC): 6 PT Plan Problem List Problem List: Activity Tolerance, Functional Strength, Safety, Balance, Gait, Transfer, Bed Mobility, ROM Treatment/Plan Treatment Plan: Continue Plan of Care Treatment Plan: Bed Mobility, Education, Functional Activity Samy, Functional Strength, Gait, Safety, Therapeutic Exercise, Transfers Treatment Duration: Apr 17, 2023 Frequency: 11 times per week Time Time In: 0945 Time Out: 1000 DATE: Apr 10, 2023 Total Billed Treatment Time: 15 Total Billed Treatment 1, EV low complexity x 15' ADAM FRAGOSO PT Apr 10, 2023 10:10
[2023-04-10] MEDS ORDERED: ENOXAPARIN 40 MG/0.4 ML SYRINGE SC SCH (11:30)
--- NOTE | 2023-04-10 11:40 | Progress Note ---
Subjective Date Seen by a Provider: Apr 10, 2023 Time Seen by a Provider: 11:15 Subjective/Events-last exam Patient doing well Patient is still not intact IV steroids maintained Temporal artery biopsy tomorrow Lovenox will be given Review of Systems General: Fatigue, Malaise HEENT: Visual Changes Objective Exam Last Set of Vital Signs Vital Signs Date Time Temp Pulse Resp B/P (MAP) Pulse Ox O2 Delivery O2 Flow Rate FiO2 04/10/23 08:06 Room Air 04/10/23 07:31 36.8 83 16 176/80 (112) 92 04/09/23 22:07 21 Capillary Refill : I&O Intake and Output 04/10/23 00:00 Intake Total 1600 ml Balance 1600 ml Intake Oral 1600 ml # Voids 4 Daily Weight Change No General: Alert, Oriented X3, Cooperative, No Acute Distress Lungs: Clear to Auscultation, Normal Air Movement Heart: Regular Rate, Normal S1, Normal S2, No Murmurs Psych/Mental Status: Mental Status NL, Mood NL Results Lab Laboratory Tests 04/09/23 13:45: White Blood Count 7.4, Red Blood Count 3.79L, Hemoglobin 11.3L, Hematocrit 35, Mean Corpuscular Volume 93, Mean Corpuscular Hemoglobin 30, Mean Corpuscular Hemoglobin Concent 32, Red Cell Distribution Width 13.6, Platelet Count 247, Mean Platelet Volume 9.0, Immature Granulocyte % (Auto) 0, Neutrophils (%) (Auto) 66, Lymphocytes (%) (Auto) 20, Monocytes (%) (Auto) 8, Eosinophils (%) (Auto) 4, Basophils (%) (Auto) 1, Neutrophils # (Auto) 4.9, Lymphocytes # (Auto) 1.5, Monocytes # (Auto) 0.6, Eosinophils # (Auto) 0.3, Basophils # (Auto) 0.1, Immature Granulocyte # (Auto) 0.0, Erythrocyte Sedimentation Rate 19, Prothrombin Time 13.5, INR Comment 1.0, Activated Partial Thromboplast Time 29, D-Dimer 1.31H, Sodium Level 138, Potassium Level 3.8, Chloride Level 101, Carbon Dioxide Level 27, Anion Gap 10, Blood Urea Nitrogen 15, Creatinine 0.95, Estimat Glomerular Filtration Rate 59, BUN/Creatinine Ratio 16, Glucose Level 86, Calcium Level 8.8, Corrected Calcium 9.2, Phosphorus Level 3.6, Total Bilirubin 0.5, Aspartate Amino Transf (AST/SGOT) 20, Alanine Aminotransferase (ALT/SGPT) 13, Alkaline Phosphatase 78, C-Reactive Protein High Sensitivity 0.97H, Total Protein 6.7, Total Protein (PEP) 6.9, Albumin 3.5, Vitamin D 25-Hydroxy 53.3 04/10/23 05:05: White Blood Count 3.5L, Red Blood Count 3.29L, Hemoglobin 9.9L, Hematocrit 31L, Mean Corpuscular Volume 93, Mean Corpuscular Hemoglobin 30, Mean Corpuscular Hemoglobin Concent 32, Red Cell Distribution Width 13.4, Platelet Count 260, Mean Platelet Volume 9.2, Immature Granulocyte % (Auto) 1, Neutrophils (%) (Auto) 84H, Lymphocytes (%) (Auto) 15, Monocytes (%) (Auto) 1, Eosinophils (%) (Auto) 0, Basophils (%) (Auto) 0, Neutrophils # (Auto) 2.9, Lymphocytes # (Auto) 0.5L, Monocytes # (Auto) 0.0, Eosinophils # (Auto) 0.0, Basophils # (Auto) 0.0, Immature Granulocyte # (Auto) 0.0, Sodium Level 138, Potassium Level 3.8, Chloride Level 102, Carbon Dioxide Level 26, Anion Gap 10, Blood Urea Nitrogen 17, Creatinine 0.97, Estimat Glomerular Filtration Rate 58, BUN/Creatinine Ratio 18, Glucose Level 161H, Calcium Level 8.5, Corrected Calcium 9.3, Total Bilirubin 0.4, Aspartate Amino Transf (AST/SGOT) 18, Alanine Aminotransferase (ALT/SGPT) 12, Alkaline Phosphatase 68, Total Protein 5.7L, Albumin 3.0L 04/10/23 08:45: Urine Color YELLOW, Urine Clarity CLEAR, Urine pH 7.0, Urine Specific [place] 1.020, Urine Protein 1+H, Urine Glucose (UA) NEGATIVE, Urine Ketones NEGATIVE, Urine Nitrite NEGATIVE, Urine Bilirubin NEGATIVE, Urine Urobilinogen 0.2, Urine Leukocyte Esterase NEGATIVE, Urine RBC (Auto) NEGATIVE, Urine RBC NONE, Urine WBC NONE, Urine Squamous Epithelial Cells 0-2, Urine Crystals NONE, Urine Bacteria TRACE, Urine Casts NONE, Urine Mucus NEGATIVE, Urine Culture Indicated NO Assessment/Plan Assessment/Plan Assess & Plan/Chief Complaint Assessment: Abrupt vision loss referred from [facility] [employer] [facility] office after exam h/o severe anemia Hx of hypercapnic respiratory failure requiring BiPAP Chronic lower extremity edema COPD h/o Afib w/ RVR hx status post cardioconversion Hypothyroidism Anxiety HTN Plan: Steroids Admit Temporal artery biopsy Wednesday Home meds Anticoagulation Clinical Quality Measures Admission Status Admission Dx Assessment: Abrupt vision loss referred from [facility] office after exam h/o severe anemia Hx of hypercapnic respiratory failure requiring BiPAP Chronic lower extremity edema COPD h/o Afib w/ RVR hx status post cardioconversion Hypothyroidism Anxiety HTN Plan: Steroids Admit Temporal artery biopsy Wednesday Home meds Anticoagulation ELVA BEAUCHAMP DO Apr 10, 2023 11:40
[2023-04-10] MEDS ORDERED: SERT-413 PO (11:59)
[2023-04-10] MEDS: METHYLPREDNISOLONE SOD SUCC IV SCH (15:04)
[2023-04-10] MEDS: NS IV SCH (15:04)
[2023-04-10] MEDS ORDERED: APIXABAN 2.5 MG TABLET PO SCH (21:00)
[2023-04-11 03:52] VITALS: BP 179/80
[2023-04-11] MEDS: hydrALAZINE 25 MG TABLET PO PRN ×2 (04:01→23:56)
[2023-04-11] MEDS: IBUPROFEN 200 MG TABLET PO SCH ×4 (05:10→23:57)
[2023-04-11] MEDS: ACETAMINOPHEN 500 MG TABLET PO SCH ×3 (05:10→23:57)
[2023-04-11 05:37] LABS: BASOPHILS % (AUTO) 0 % (0-10); EOSINOPHILS % (AUTO) 0 % (0-10); HEMATOCRIT 33 % (35-52); HEMOGLOBIN 10.6 g/dL (11.5-16.0); LYMPHOCYTES # (AUTO) 0.8 10^3/uL (1.0-4.0); LYMPHOCYTES % (AUTO) 6 % (12-44); MEAN CORPUSCULAR HEMOGLOBIN 30 pg (25-34); MEAN CORPUSCULAR HGB CONC 33 g/dL (32-36); MEAN CORPUSCULAR VOLUME 92 fL (80-99); MEAN PLATELET VOLUME 9.1 fL (9.0-12.2); MONOCYTES # (AUTO) 0.3 10^3/uL (0.0-1.0); MONOCYTES % (AUTO) 2 % (0-12); NEUTROPHILS # (AUTO) 12.9 10^3/uL (1.8-7.8); NEUTROPHILS % (AUTO) 91 % (42-75); PLATELET COUNT 295 10^3/uL (130-400); WHITE BLOOD COUNT 14.2 10^3/uL (4.3-11.0)
[2023-04-11 05:47] LABS: ALBUMIN 3.4 GM/DL (3.2-4.5)
[2023-04-11 05:48] LABS: POTASSIUM 3.5 MMOL/L (3.6-5.0)
[2023-04-11 05:49] LABS: CALCIUM 8.5 MG/DL (8.5-10.1)
[2023-04-11 05:50] LABS: TOTAL PROTEIN 6.6 GM/DL (6.4-8.2)
[2023-04-11 05:51] LABS: ACANTHOCYTES SLIGHT; ANISOCYTOSIS SLIGHT; LYMPHOCYTES % (MANUAL) 5 %; MONOCYTES % (MANUAL) 1 %; NEUTROPHILS % (MANUAL) 94 %
[2023-04-11 05:52] LABS: BILIRUBIN,TOTAL 0.3 MG/DL (0.1-1.0)
[2023-04-11 05:54] LABS: CREATININE SERUM 0.89 MG/DL (0.60-1.30)
--- NOTE | 2023-04-11 05:59 | Progress Note ---
Subjective Date Seen by a Provider: Apr 11, 2023 Time Seen by a Provider: 11:00 Subjective/Events-last exam Patient doing well Tolerating steroids Temporal artery biopsy tomorrow We will place n.p.o. after midnight Review of Systems General: Fatigue, Malaise Objective Exam Last Set of Vital Signs Vital Signs Date Time Temp Pulse Resp B/P (MAP) Pulse Ox O2 Delivery O2 Flow Rate FiO2 04/11/23 03:52 37.2 90 20 179/80 (113) 93 Room Air 04/09/23 22:07 21 Capillary Refill : I&O Intake and Output 04/11/23 00:00 Intake Total 1300 ml Output Total 300 ml Balance 1000 ml Intake Oral 1300 ml Output Urine Total 300 ml # Voids 7 # Bowel Movements 1 General: Alert, Oriented X3, Cooperative, No Acute Distress Lungs: Clear to Auscultation, Normal Air Movement Heart: Regular Rate, Normal S1, Normal S2, No Murmurs Psych/Mental Status: Mental Status NL, Mood NL Results Lab Laboratory Tests 04/10/23 08:45: Urine Color YELLOW, Urine Clarity CLEAR, Urine pH 7.0, Urine Specific [place] 1.020, Urine Protein 1+H, Urine Glucose (UA) NEGATIVE, Urine Ketones NEGATIVE, Urine Nitrite NEGATIVE, Urine Bilirubin NEGATIVE, Urine Urobilinogen 0.2, Urine Leukocyte Esterase NEGATIVE, Urine RBC (Auto) NEGATIVE, Urine RBC NONE, Urine WBC NONE, Urine Squamous Epithelial Cells 0-2, Urine Crystals NONE, Urine Bacteria TRACE, Urine Casts NONE, Urine Mucus NEGATIVE, Urine Culture Indicated NO 04/11/23 05:19: White Blood Count 14.2H, Red Blood Count 3.54L, Hemoglobin 10.6L, Hematocrit 33L , Mean Corpuscular Volume 92, Mean Corpuscular Hemoglobin 30, Mean Corpuscular Hemoglobin Concent 33, Red Cell Distribution Width 13.5, Platelet Count 295, Mean Platelet Volume 9.1, Immature Granulocyte % (Auto) 1, Neutrophils (%) (Auto) 91H, Lymphocytes (%) (Auto) 6L, Monocytes (%) (Auto) 2, Eosinophils (%) ( Auto) 0, Basophils (%) (Auto) 0, Neutrophils # (Auto) 12.9H, Lymphocytes # (Auto) 0.8L, Monocytes # (Auto) 0.3, Eosinophils # (Auto) 0.0, Basophils # (Auto) 0.0, Immature Granulocyte # (Auto) 0.1, Neutrophils % (Manual) 94, Lymphocytes % (Manual) 5, Monocytes % (Manual) 1, Anisocytosis SLIGHT, Acanthocytes SLIGHT, Sodium Level 137, Potassium Level 3.5L, Chloride Level 100, Carbon Dioxide Level 26, Anion Gap 11, Blood Urea Nitrogen 22H, Creatinine 0.89, Estimat Glomerular Filtration Rate 64, BUN/Creatinine Ratio 25, Glucose Level 134H, Calcium Level 8.5, Corrected Calcium 9.0, Total Bilirubin 0.3, Aspartate Amino Transf (AST/SGOT) 17, Alanine Aminotransferase (ALT/SGPT) 14, Alkaline Phosphatase 71, Total Protein 6.6, Albumin 3.4 Assessment/Plan Assessment/Plan Assess & Plan/Chief Complaint Assessment: Abrupt vision loss referred from [employer] [facility] office after exam h/o severe anemia Hx of hypercapnic respiratory failure requiring BiPAP Chronic lower extremity edema COPD h/o Afib w/ RVR hx status post cardioconversion Hypothyroidism Anxiety HTN Plan: Steroids Temporal artery biopsy Wednesday Home meds Anticoagulation held until after surgery Clinical Quality Measures Admission Status Admission Dx Assessment: Abrupt vision loss referred from [facility] office after exam h/o severe anemia Hx of hypercapnic respiratory failure requiring BiPAP Chronic lower extremity edema COPD h/o Afib w/ RVR hx status post cardioconversion Hypothyroidism Anxiety HTN Plan: Steroids Admit Temporal artery biopsy Wednesday Home meds Anticoagulation ELVA BEAUCHAMP DO Apr 11, 2023 05:59
[2023-04-11 08:26] VITALS: BP 167/72
[2023-04-11] MEDS: SENNOSIDES 8.6 MG TABLET PO SCH ×2 (08:37→20:33)
[2023-04-11] MEDS: DOCUSATE SODIUM 100 MG CAPSULE PO SCH (08:37)
[2023-04-11] MEDS ORDERED: RT-ALBUTEROL SULF 2.5 MG/3 ML PRE-MIX VIAL INH PRN (10:15)
[2023-04-11] MEDS ORDERED: RT-Ipratropium/Albuterol NEB 3 ML VIAL IH PRN (10:15)
[2023-04-11] MEDS ORDERED: POTASSIUM CHLORIDE 10 MEQ TABLET PO NR (10:15)
[2023-04-11] MEDS ORDERED: hydrALAZINE 25 MG TABLET PO PRN (10:15)
[2023-04-11] MEDS: diphenhydrAMINE 25 MG TABLET PO PRN (10:39)
[2023-04-11] MEDS: FUROSEMIDE 40 MG TABLET PO SCH (10:56)
[2023-04-11] MEDS: LEVOTHYROXINE 88 MCG TABLET PO SCH (10:56)
[2023-04-11 12:00] VITALS: BP 123/61
[2023-04-11 15:48] VITALS: BP 138/67
[2023-04-11] MEDS: METHYLPREDNISOLONE SOD SUCC IV SCH (15:55)
[2023-04-11] MEDS: NS IV SCH (15:55)
[2023-04-11 20:18] VITALS: BP 157/65
[2023-04-11] MEDS: PANTOPRAZOLE 40 MG TABLET PO SCH (20:30)
[2023-04-11] MEDS: BETHANECHOL 25 MG TABLET PO SCH (20:30)
[2023-04-11 23:58] VITALS: BP 164/76
[2023-04-12 03:37] VITALS: BP 153/67
[2023-04-12] MEDS: ACETAMINOPHEN 500 MG TABLET PO SCH ×3 (04:22→20:48)
[2023-04-12] MEDS: IBUPROFEN 200 MG TABLET PO SCH ×4 (04:22→23:12)
[2023-04-12] MEDS: POTASSIUM CHLORIDE 10 MEQ TABLET PO SCH (04:22)
[2023-04-12 04:42] LABS: BASOPHILS % (AUTO) 0 % (0-10); EOSINOPHILS % (AUTO) 0 % (0-10); HEMATOCRIT 33 % (35-52); HEMOGLOBIN 10.6 g/dL (11.5-16.0); LYMPHOCYTES # (AUTO) 0.5 10^3/uL (1.0-4.0); LYMPHOCYTES % (AUTO) 5 % (12-44); MEAN CORPUSCULAR HEMOGLOBIN 30 pg (25-34); MEAN CORPUSCULAR HGB CONC 33 g/dL (32-36); MEAN CORPUSCULAR VOLUME 92 fL (80-99); MEAN PLATELET VOLUME 8.8 fL (9.0-12.2); MONOCYTES # (AUTO) 0.1 10^3/uL (0.0-1.0); MONOCYTES % (AUTO) 1 % (0-12); NEUTROPHILS # (AUTO) 9.7 10^3/uL (1.8-7.8); NEUTROPHILS % (AUTO) 93 % (42-75); PLATELET COUNT 296 10^3/uL (130-400); WHITE BLOOD COUNT 10.4 10^3/uL (4.3-11.0)
[2023-04-12 04:49] LABS: ALBUMIN 3.3 GM/DL (3.2-4.5)
[2023-04-12 04:50] LABS: POTASSIUM 3.8 MMOL/L (3.6-5.0)
[2023-04-12 04:51] LABS: CALCIUM 8.4 MG/DL (8.5-10.1)
[2023-04-12 04:52] LABS: TOTAL PROTEIN 6.2 GM/DL (6.4-8.2)
[2023-04-12 04:54] LABS: BILIRUBIN,TOTAL 0.3 MG/DL (0.1-1.0)
[2023-04-12 04:55] LABS: CREATININE SERUM 1.07 MG/DL (0.60-1.30)
[2023-04-12 07:47] VITALS: BP 175/79
[2023-04-12] MEDS: DOCUSATE SODIUM 100 MG CAPSULE PO SCH (08:53)
[2023-04-12] MEDS: SENNOSIDES 8.6 MG TABLET PO SCH ×2 (08:53→20:49)
[2023-04-12] MEDS: PANTOPRAZOLE 40 MG TABLET PO SCH ×2 (08:53→20:47)
[2023-04-12] MEDS: BETHANECHOL 25 MG TABLET PO SCH ×2 (08:53→20:47)
[2023-04-12] MEDS ORDERED: POTASSIUM CHLORIDE 20 MEQ TABLET PO SCH (09:00)
--- NOTE | 2023-04-12 10:31 | Occupational Therapy Eval ---
OT Evaluation-General/PLF Medical Diagnosis Admission Date Apr 09, 2023 at 12:55 Medical Diagnosis: temporal arteritis Onset Date: Apr 09, 2023 Therapy Diagnosis Therapy Diagnosis: visually impaired Height/Weight Height (Feet): 5 Height (Inches): 3.50 Weight (Pounds): 157 Weight (Ounces): 0.9 Precautions Precautions/Isolations: Fall Prevention, Standard Precautions Weight Bear Status Weight Bearing Restriction: Full Weight Bearing Referral Physician: Cassidy Referral Reason: Activity Tolerance, Evaluation/Treatment Medical History Pertinent Medical History: Atrial Fib, COPD, Heart Failure, HTN, Hypothroidism Additional Medical History Assessment: Abrupt vision loss referred from [facility] office after exam h/o severe anemia Hx of hypercapnic respiratory failure requiring BiPAP Chronic lower extremity edema COPD h/o Afib w/ RVR hx status post cardioconversion Hypothyroidism Anxiety HTN Reviewed History: Yes Social History Home: [facility] Current Living Status: Alone Entry Into Home: Level Entry ADL-Prior Level of Function SCALE: Activities may be completed with or without assistive devices. 3-Njtsszcepc-ganesiw completes the activity by him/herself with no assistance from a helper. 5-Set-up or Clean-up Assistance-helper sets up or cleans up; patient completes activity. [place] assists only prior to or following the activity. 4-Supervision or Touching Assistance-helper provides verbal cues and/or touching/steadying and/or contact guard assistance as patient completes activ ity. Assistance may be provided throughout the activity or intermittently. 3-Partial/Moderate Assistance-helper does LESS THAN HALF the effort. [place] lifts, holds or supports trunk or limbs, but provides less than half the effort. 2-Substantial/Maximal Assistance-helper does MORE THAN HALF the effort. [place] lifts or holds trunk or limbs and provides more than half the effort. 5-Wlgbzfqay-qnltsn does ALL the effort. Patient does none of the effort to complete the activity. Or, the assistance of 2 or more helpers is required for the patient to complete the activity. If activity was not attempted, code reason: 7-Patient Refused. 9-Not Applicable-not attempted and the patient did not perform the activity before the current illness, exacerbation or injury. 10-Not Attempted due to Environmental Limitations-(lack of equipment, weather restraints, etc.). 88-Not Attempted due to Medical Conditions or Safety Concerns. Self Care: Needed Some Help Functional Cognition: Needed Some Help OT Current Status Subjective Sitting in recliner spreading butter on pancakes, agreeable to OT Mental Status/Objective Patient Orientation: Person, Place, Time, Situation Current Glasses/Contacts: Yes Hearing Aids: No Hand Dominance: Right Upper Extremity ROM BUE ROM WFLS Upper Extremity Coordination INTACT BUE Upper Extremity Strength +3/5 grossly ADL-Treatment ADL-Current Sitting in recliner, OT observed patient open butter containers, spread butter on 3 pancakes,open syrup, separate pancakes and cut pancakes w/o help Eating (QC): 6 Oral Hygiene (QC): 5 Shower/Bathe Self (QC): 7 Upper Body Dressing (QC): 4 Lower Body Dressing (QC): 4 On/Off Footwear (QC): 5 Toileting Hygiene (QC): 4 Education OT Patient Education: Exercise program, Modified ADL techniques, Progress toward Goal/Update tx plan, Purpose of tx/functional activities, Reviewed precautions, Rehab process, Safety issues, Transfer techniques Teaching Recipient: Patient Teaching Methods: Demonstration Response to Teaching: Reinforcement Needed OT Jail Goals Fighting Vehicle Systems Maintainer Goals Eating (QC): 6 Oral Hygiene (QC): 5 Toileting Hygiene (QC): 5 Shower/Bathe Self (QC): 5 Upper Body Dressing (QC): 5 Lower Body Dressing (QC): 5 On/Off Footwear (QC): 5 1=Demonstrate adherence to instructed precautions during ADL tasks. 2=Patient will verbalize/demonstrate understanding of assistive devices/modifications for ADL. 3=Patient will improve strength/tolerance for activity to enable patient to perform ADL's. OT Education/Plan Problem List/Assessment Assessment: Decreased Activ Tolerance, Impaired Self-Care Skills Discharge Recommendations Plan/Recommendations: Continue POC Treatment Plan/Plan of Care Patient would benefit from OT for education, treatment and training to promote independence in ADL's, mobility, safety and/or upper extremity function for ADL's. Plan of Care: ADL Retraining, Functional Mobility, Group Exercise/Act as Ind, UE Funct Exercise/Act Treatment Duration: Apr 16, 2023 Frequency: 3 times per week (3-5 times per week) Rehab Potential: Good Time Start Time: 09:35 Stop Time: 09:48 DATE: Apr 12, 2023 Total Time Billed (hr/min): 13 Billed Treatment Time EVM 13 FELICIANO JOHNSON OT Apr 12, 2023 10:31
--- NOTE | 2023-04-12 10:34 | Progress Note ---
JOHNTAMI 04/12/23 1034: Subjective Date Seen by a Provider: Apr 12, 2023 Time Seen by a Provider: 08:15 Subjective/Events-last exam Ms. Mendoza is doing well today. She denies any vision changes since being admitted on 04/09. Her vision is blurry in both eyes, and she feels as if she is looking through a red wine glass in her right eye. She has no headache, lightheadedness, dizziness, or hearing changes. She also denies CP/SOB or a history of DM. She is ready for her temporal artery biopsy today and was NPO overnight. She has no issues with bowel movements or urinating. Objective Exam Last Set of Vital Signs Vital Signs Date Time Temp Pulse Resp B/P (MAP) Pulse Ox O2 Delivery O2 Flow Rate FiO2 04/12/23 08:00 Room Air 04/12/23 07:47 35.8 87 16 175/79 (111) 93 04/09/23 22:07 21 Capillary Refill : I&O Intake and Output 04/12/23 00:00 Intake Total 1980 ml Balance 1980 ml Intake Oral 1980 ml # Voids 7 # Bowel Movements 3 General: Alert, Oriented X3, Cooperative HEENT: Atraumatic, EOMI Neck: Supple Lungs: Clear to Auscultation, Normal Air Movement Heart: Regular Rate, No Murmurs Abdomen: Normal Bowel Sounds, No Tenderness Extremities: No Cyanosis, Normal Pulses Skin: No Rashes Neuro: Normal Speech Psych/Mental Status: Mental Status NL Results Lab Laboratory Tests 04/12/23 04:28: White Blood Count 10.4, Red Blood Count 3.55L, Hemoglobin 10.6L, Hematocrit 33L, Mean Corpuscular Volume 92, Mean Corpuscular Hemoglobin 30, Mean Corpuscular Hemoglobin Concent 33, Red Cell Distribution Width 13.5, Platelet Count 296, Mean Platelet Volume 8.8L, Immature Granulocyte % (Auto) 1, Neutrophils (%) (Auto) 93H, Lymphocytes (%) (Auto) 5L, Monocytes (%) (Auto) 1, Eosinophils (%) (Auto) 0, Basophils (%) (Auto) 0, Neutrophils # (Auto) 9.7H, Lymphocytes # (Auto) 0.5L, Monocytes # (Auto) 0.1, Eosinophils # (Auto) 0.0, Basophils # (Auto) 0.0, Immature Granulocyte # (Auto) 0.1, Sodium Level 138, Potassium Level 3.8, Chloride Level 101, Carbon Dioxide Level 26, Anion Gap 11, Blood Urea Nitrogen 31H, Creatinine 1.07, Estimat Glomerular Filtration Rate 52, BUN/Creatinine Ratio 29, Glucose Level 151H, Calcium Level 8.4L, Corrected Calcium 9.0, Total Bilirubin 0.3, Aspartate Amino Transf (AST/SGOT) 14, Alanine Aminotransferase (ALT/SGPT) 13, Alkaline Phosphatase 60, Total Protein 6.2L, Albumin 3.3 Assessment/Plan Assessment/Plan Assess & Plan/Chief Complaint Assessment: Ms. Mendoza is a 83 y/o female presented for visual changes in both eyes. 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 -on IV methylprednisolone -pending temporal artery biopsy KAY -BUN 31 -CR 1.07 -IV fluids -encourage oral fluid intake A Fib -anticoagulants held til after surgery -loop recorder Hypothyroid -managed with home medications Anemia -Hbg 10.6 -continue to monitor MELINA BEAUCHAMP DO 04/13/232051: Subjective Subjective/Events-last exam Patient doing well Awaiting temporal artery biopsy Walking around pretty well Blindness has not changed Objective Exam General: Alert, Oriented X3, Cooperative, No Acute Distress Lungs: Clear to Auscultation, Normal Air Movement Heart: Regular Rate, Normal S1, Normal S2, No Murmurs Psych/Mental Status: Mental Status NL, Mood NL Assessment/Plan Assessment/Plan Assess & Plan/Chief Complaint Supportive care Monitor labs Steroids Supervisory-Addendum Brief Verification & Attestation Participated in pt care: history, MDM, physical Personally performed: exam, history, MDM, supervision of care Care discussed with: Medical Student Procedures: n/a Results interpretation: Verified all documentation Verification and Attestation of Medical Student E/M Service A medical student performed and documented this service in my presence. I reviewed and verified all information documented by the medical student and made modifications to such information, when appropriate. I personally performed the physical exam and medical decision making. Melina Beauchamp, Apr 13, 2023,20:52 TAMI LOPEZ Apr 12, 2023 10:34 MELINA BEAUCHAMP DO Apr 13, 2023 20:52
[2023-04-12 12:00] VITALS: BP 132/60
[2023-04-12] MEDS: diphenhydrAMINE 25 MG TABLET PO PRN (12:25)
--- NOTE | 2023-04-12 13:55 | Physical Therapy Daily Note ---
PT Daily Note-Current Subjective Pt found seated in recliner upon entry. Agreed to PT. Reports that she is not having any pain today. Pain Section J - Health Conditions 1. Rarely or not at all 2. Occasionally 3. Frequently 4. Almost constantly 8. Unable to answer Pain Effect on Sleep: 88 Pain Interference with Therapy: 88 Pain Interference w/Day-to-Day: 88 Mental Status Patient Orientation: Person, Place Transfers SCALE: Activities may be completed with or without assistive devices. 5-Cvhqrszuwi-kncdztu completes the activity by him/herself with no assistance from a helper. 5-Set-up or Clean-up Assistance-helper sets up or cleans up; patient completes activity. [place] assists only prior to or following the activity. 4-Supervision or Touching Assistance-helper provides verbal cues and/or touching/steadying and/or contact guard assistance as patient completes activity. Assistance may be provided throughout the activity or intermittently. 3-Partial/Moderate Assistance-helper does LESS THAN HALF the effort. [place] lifts, holds or supports trunk or limbs, but provides less than half the effort. 2-Substantial/Maximal Assistance-helper does MORE THAN HALF the effort. [place] lifts or holds trunk or limbs and provides more than half the effort. 9-Dwgkdxtgt-rqwcnr does ALL the effort. Patient does none of the effort to com plete the activity. Or, the assistance of 2 or more helpers is required for the patient to complete the activity. If activity was not attempted, code reason: 7-Patient Refused. 9-Not Applicable-not attempted and the patient did not perform the activity before the current illness, exacerbation or injury. 10-Not Attempted due to Environmental Limitations-(lack of equipment, weather restraints, etc.). 88-Not Attempted due to Medical Conditions or Safety Concerns. Sit to Stand (QC): 4 Weight Bearing Full Weight Bearing Full Weight Bearing Gait Training Does the Patient Walk?: Yes Distance: 250 Walk 10 feet (QC): 4 Walk 50 ft with 2 Turns(QC): 4 Walk 150 ft (QC): 4 Gait Persons Needed: 1 Gait Assistive Device: FWW Assessment Current Status: Good Progress Pt performs sit to stand transfer /c CGA for safety due to strength deficits. She ambulates /c use of a FWW up to 250 feet and required CGA due to vision and balance deficits. Occasionally required verbal cues to avoid objects on R-hand side. No loss of balance demonstrated throughout visit. Displays a slow gait pattern /c good step lengths. Increased fatigue reported post-treatment. Pt left in recliner /c call light in place and all needs met post-treatment. Continue to progress pt per POC. PT Detention Goals Conservation Engineer Goals PT Conservation Engineer Goals Time Frame: Apr 17, 2023 Roll Left & Right (QC): 6 Sit to Lying (QC): 6 Lying-Sitting on Side/Bed(QC): 6 Sit to Stand (QC): 6 Chair/Cst-ys-Xcwja Xfer(QC): 6 Toilet Transfer (QC): 6 Car Transfer (QC): 6 Does the Patient Walk: Yes Walk 10 feet (QC): 6 Walk 50ft with 2 Turns (QC): 6 Walk 150 ft (QC): 6 Walking 10ft on Uneven Surface: 6 1 Step (curb) (QC): 6 4 Steps (QC): 6 12 Steps (QC): 6 Picking up an Object (QC): 6 PT Plan Treatment/Plan Treatment Plan: Continue Plan of Care Treatment Plan: Bed Mobility, Education, Functional Activity Smay, Functional Strength, Gait, Safety, Therapeutic Exercise, Transfers Treatment Duration: Apr 17, 2023 Frequency: 11 times per week Time Time In: 1324 Time Out: 1337 DATE: Apr 12, 2023 Total Billed Treatment Time: 13 Total Billed Treatment 1 visit GT x 1 SONNY SPARROW RESIDENT CARE ASSOCIATE Apr 12, 2023 13:55
[2023-04-12] MEDS: NS IV SCH (14:17)
[2023-04-12] MEDS: METHYLPREDNISOLONE SOD SUCC IV SCH (14:17)
[2023-04-12 16:06] VITALS: BP 143/68
--- NOTE | 2023-04-12 17:42 | Progress Note-Pre Operative ---
Pre-Operative Progress Note Date of Available H&P: Apr 12, 2023 Date H&P Reviewed: Apr 12, 2023 Time H&P Reviewed: 18:00 History & Physical: No changes noted Pre-Operative Diagnosis: Right eye loss of vision ERNA DICKSON MD Apr 12, 2023 17:42
--- NOTE | 2023-04-12 18:32 | CONSULTATION REPORT ---
DATE OF SERVICE: 04/12/2023 ATTENDING PRIMARY CARE PHYSICIAN: Cony Poole DO ADMITTING PHYSICIAN: Melina Benjamin DO HISTORY OF PRESENT ILLNESS:. The patient is an 83-year-old female who was directly admitted from her ophthalmology clinic for concerns of giant cell temporal arteritis. She states that she began having right eye visual changes about 1 week before presentation. She noted a cloudiness on the inferior aspect of her right eye and this then progressed to what she describes as red colored dots. She reports that she did have similar symptoms before of her left eye and then did lose majority of her vision in her left eye. She was evaluated by Ophthalmology with a concern for giant cell arteritis versus either a transient ischemic attack or possible stroke. The patient underwent a head MRI as well as a CT arteriogram of the cerebral vasculature, which did not show any acute infarcts, aneurysms, or any other deficits only a small vessel arterial sclerosis. The patient does have a history of atrial fibrillation and has had a rapid ventricular response in the past. She is currently on Xarelto for this. The patient also does have a history of peripheral vascular disease and underwent a right carotid endarterectomy at [facility] in 05/2021. Upon admission, her laboratory work did show slight elevation of inflammatory markers. She is currently on high dose steroids. PAST MEDICAL HISTORY: History of endometriosis, atrial fibrillation with rapid ventricular response, peripheral vascular disease, COPD, history of pneumonia, bilateral lower extremity edema, hypercholesterolemia, hypertension, chronic urinary tract infection, hypothyroid, congestive heart failure. PAST SURGICAL HISTORY: Right carotid endarterectomy, endometrial ablation, excision of skin basal cell cancer. ALLERGIES: Codeine, amoxicillin. MEDICATIONS: Aspirin 81 mg daily, albuterol inhaler 1 puff q.4 hours p.r.n., atorvastatin 20 mg daily, bethanechol 25 mg b.i.d., budesonide breathing treatment q.12 hours, Colace 100 mg daily, formoterol fumarate 20 mcg q.12 hours, furosemide 20 mg every other day, ipratropium/albuterol breathing treatment q.4 hours p.r.n., levothyroxine 75 mcg 3 days a week and 88 mcg 4 days a week, Protonix 40 mg b.i.d., potassium 20 mEq daily, sertraline 25 mg daily. SOCIAL HISTORY: Negative smoke, negative alcohol. FAMILY HISTORY: Diabetes, hypertension, thyroid disease, history of colon cancer. VITAL SIGNS: Temperature 36.9, blood pressure 143/68, pulse 71, respirations 16, pulse ox 96% on room air. REVIEW OF SYSTEMS: A well-nourished female, currently in no acute distress. She is not experiencing shortness of breath or difficulty in breathing. No chest pain, palpitations, or diaphoresis. No nausea, vomiting, with history of reflux, with epigastric crampy pain. History of constipation, no red blood per rectum, no dark tarry stools. No fever, chills, no recent inadvertent weight loss. She does report a change in her vision of her right eye recently with blurriness as well as red spot in the inferior aspect of her visual field. All other review of systems are negative. PHYSICAL EXAMINATION: CHEST: Few scattered rales bilaterally. HEART: Regular. No murmurs. EXTREMITIES: Plus 1/3 bilateral lower extremity edema. Negative Homans sign. HEENT: No scleral icterus. No cervical lymphadenopathy. Palpable temporal arteries bilaterally. ABDOMEN: Soft, nontender, nondistended. SKIN: Warm, dry. NEUROLOGIC: No lateral or medial ocular or visual hemianopsia that would indicate potential arterial ischemic insult. LABORATORY DATA: WBC 10.4, hemoglobin 10.6, hematocrit 33, platelets 296. BUN 31, creatinine 1.07. C-reactive protein 0.97, D-dimer 1.31. ESR 19. ASSESSMENT AND PLAN: An 83-year-old female with right eye visual changes as well as history of atrial fibrillation, congestive heart failure and hypertension. CT scan as well as MRI of the brain did not show any abnormalities. She does have elevation of C-reactive protein as well as D-dimer. She is currently being treated for giant cell temporal arteritis and to rule in or rule out a diagnosis, we will proceed with right temporal artery biopsy. She is currently being treated appropriately with high dose steroids and states that since admission, she has not had any other visual changes. Her cardiac rhythm, heart rate as well as blood pressure are also stable. We will also get bilateral carotid artery u/s while here. Job ID: [id number] DocumentID: [id number] Dictated Date: 04/12/2023 17:55:40 Environmental Emergencies Assistant Date: 04/12/2023 18:30:00 Dictated By: ERNA DICKSON MD [facility]
[2023-04-12 19:47] VITALS: BP 150/62
[2023-04-12 23:09] VITALS: BP 165/79
[2023-04-12] MEDS: hydrALAZINE 25 MG TABLET PO PRN (23:12)
[2023-04-13] VITALS (11 sets, daily range): BP systolic 127–185; BP diastolic 55–84
[2023-04-13 05:12] LABS: BASOPHILS % (AUTO) 0 % (0-10); EOSINOPHILS % (AUTO) 0 % (0-10); HEMATOCRIT 32 % (35-52); HEMOGLOBIN 10.4 g/dL (11.5-16.0); LYMPHOCYTES # (AUTO) 0.6 10^3/uL (1.0-4.0); LYMPHOCYTES % (AUTO) 8 % (12-44); MEAN CORPUSCULAR HEMOGLOBIN 30 pg (25-34); MEAN CORPUSCULAR HGB CONC 33 g/dL (32-36); MEAN CORPUSCULAR VOLUME 91 fL (80-99); MEAN PLATELET VOLUME 10.6 fL (9.0-12.2); MONOCYTES # (AUTO) 0.1 10^3/uL (0.0-1.0); MONOCYTES % (AUTO) 2 % (0-12); NEUTROPHILS # (AUTO) 6.8 10^3/uL (1.8-7.8); NEUTROPHILS % (AUTO) 90 % (42-75); PLATELET COUNT 260 10^3/uL (130-400); WHITE BLOOD COUNT 7.6 10^3/uL (4.3-11.0)
[2023-04-13] MEDS: ACETAMINOPHEN 500 MG TABLET PO SCH ×3 (05:17→20:04)
[2023-04-13] MEDS: LEVOTHYROXINE 88 MCG TABLET PO SCH (05:18)
[2023-04-13] MEDS: IBUPROFEN 200 MG TABLET PO SCH ×4 (05:18→23:53)
[2023-04-13] MEDS: POTASSIUM CHLORIDE 10 MEQ TABLET PO SCH (05:18)
[2023-04-13 06:09] LABS: ALBUMIN 3.3 GM/DL (3.2-4.5)
[2023-04-13 06:10] LABS: POTASSIUM 3.8 MMOL/L (3.6-5.0)
[2023-04-13 06:11] LABS: CALCIUM 8.3 MG/DL (8.5-10.1)
[2023-04-13 06:12] LABS: TOTAL PROTEIN 6.1 GM/DL (6.4-8.2)
[2023-04-13 06:14] LABS: BILIRUBIN,TOTAL 0.3 MG/DL (0.1-1.0)
[2023-04-13 06:16] LABS: CREATININE SERUM 0.96 MG/DL (0.60-1.30)
[2023-04-13] MEDS: hydrALAZINE 25 MG TABLET PO PRN (07:43)
--- NOTE | 2023-04-13 09:21 | Physical Therapy Daily Note ---
PT Daily Note-Current Subjective Pt found lying in bed upon entry. Agreed to PT. States that she will have a biopsy today. Reports that she does not know how well she will do /c PT treatment due to mouth being very dry. Pain Section J - Health Conditions 1. Rarely or not at all 2. Occasionally 3. Frequently 4. Almost constantly 8. Unable to answer Pain Effect on Sleep: 88 Pain Interference with Therapy: 88 Pain Interference w/Day-to-Day: 88 Mental Status Patient Orientation: Person, Place Transfers SCALE: Activities may be completed with or without assistive devices. 5-Vtezfwuyeu-luulzki completes the activity by him/herself with no assistance from a helper. 5-Set-up or Clean-up Assistance-helper sets up or cleans up; patient completes activity. [place] assists only prior to or following the activity. 4-Supervision or Touching Assistance-helper provides verbal cues and/or touching/steadying and/or contact guard assistance as patient completes a ctivity. Assistance may be provided throughout the activity or intermittently. 3-Partial/Moderate Assistance-helper does LESS THAN HALF the effort. [place] lifts, holds or supports trunk or limbs, but provides less than half the effort. 2-Substantial/Maximal Assistance-helper does MORE THAN HALF the effort. [place] lifts or holds trunk or limbs and provides more than half the effort. 4-Djutggxgg-lueorb does ALL the effort. Patient does none of the effort to complete the activity. Or, the assistance of 2 or more helpers is required for the patient to complete the activity. If activity was not attempted, code reason: 7-Patient Refused. 9-Not Applicable-not attempted and the patient did not perform the activity before the current illness, exacerbation or injury. 10-Not Attempted due to Environmental Limitations-(lack of equipment, weather restraints, etc.). 88-Not Attempted due to Medical Conditions or Safety Concerns. Sit to Lying (QC): 6 Lying to Sitting/Side of Bed(Q: 6 Sit to Stand (QC): 6 Weight Bearing Full Weight Bearing Full Weight Bearing Gait Training Does the Patient Walk?: Yes Distance: 250 Walk 10 feet (QC): 4 Walk 50 ft with 2 Turns(QC): 4 Walk 150 ft (QC): 4 Gait Persons Needed: 1 Gait Assistive Device: FWW Assessment Current Status: Good Progress Pt performed sitting to lying and lying to sitting transfer independently /c use of bed railing. Sit to stand transfer also performed independently /c use of UEs for push off from edge of bed. Pt ambulated /c use of a FWW 250 feet before returning to room. Pt required no cues today to avoid objects in hallway. Demonstrated a slow gait pattern /c decent step lengths. CGA provided for safety due to vision and balance deficits. Near end of treatment pt reported shortness of breath and requested that RN check her O2 saturations. O2 measured at 92-94%. Pt left supine in bed post-treatment /c call light in place and all needs met. Continue to progress pt per POC. PT Metal Grinder Goals Metal Grinder Goals PT Care Home Goals Time Frame: Apr 17, 2023 Roll Left & Right (QC): 6 Sit to Lying (QC): 6 Lying-Sitting on Side/Bed(QC): 6 Sit to Stand (QC): 6 Chair/Yst-ww-Tnnri Xfer(QC): 6 Toilet Transfer (QC): 6 Car Transfer (QC): 6 Does the Patient Walk: Yes Walk 10 feet (QC): 6 Walk 50ft with 2 Turns (QC): 6 Walk 150 ft (QC): 6 Walking 10ft on Uneven Surface: 6 1 Step (curb) (QC): 6 4 Steps (QC): 6 12 Steps (QC): 6 Picking up an Object (QC): 6 PT Plan Treatment/Plan Treatment Plan: Continue Plan of Care Treatment Plan: Bed Mobility, Education, Functional Activity Samy, Functional Strength, Gait, Safety, Therapeutic Exercise, Transfers Treatment Duration: Apr 17, 2023 Frequency: 11 times per week Time Time In: 0832 Time Out: 0850 DATE: Apr 13, 2023 Total Billed Treatment Time: 18 Total Billed Treatment 1 visit GT x 1 SONNY SPARROW BOTTOM FINISHER Apr 13, 2023 09:21
--- NOTE | 2023-04-13 10:36 | Progress Note ---
TAMI LOPEZ 04/13/23 1036: Subjective Date Seen by a Provider: Apr 13, 2023 Time Seen by a Provider: 09:30 Subjective/Events-last exam Ms. Mendoza is doing well today. She has no complaints. Biopsy was unable to be performed yesterday. Hopefully will go today. She denies any changes in her vis ion since presenting on Wednesday. Objective Exam Last Set of Vital Signs Vital Signs Date Time Temp Pulse Resp B/P (MAP) Pulse Ox O2 Delivery O2 Flow Rate FiO2 04/13/23 08:15 136/78 (97) 04/13/23 08:00 Room Air 04/13/23 07:28 36.7 76 20 94 04/09/23 22:07 21 Capillary Refill : I&O Intake and Output 04/12/23 23:59 Intake Total 1500 ml Balance 1500 ml Intake Oral 1500 ml # Voids 8 # Bowel Movements 2 General: Alert, Oriented X3, Cooperative HEENT: Atraumatic, EOMI Neck: Supple Lungs: Clear to Auscultation, Normal Air Movement Heart: Regular Rate, No Murmurs Abdomen: Normal Bowel Sounds, Soft, No Tenderness, No Masses Extremities: No Clubbing, No Cyanosis, No Edema, No Tenderness/Swelling Skin: No Rashes Neuro: Normal Speech Psych/Mental Status: Mental Status NL Results Lab Laboratory Tests 04/13/23 05:00: White Blood Count 7.6, Red Blood Count 3.47L, Hemoglobin 10.4L, Hematocrit 32L, Mean Corpuscular Volume 91, Mean Corpuscular Hemoglobin 30, Mean Corpuscular Hemoglobin Concent 33, Red Cell Distribution Width 13.7, Platelet Count 260, Mean Platelet Volume 10.6, Immature Granulocyte % (Auto) 1, Neutrophils (%) (Auto) 90H, Lymphocytes (%) (Auto) 8L, Monocytes (%) (Auto) 2, Eosinophils (%) (Auto) 0, Basophils (%) (Auto) 0, Neutrophils # (Auto) 6.8, Lymphocytes # (Auto) 0.6L, Monocytes # (Auto) 0.1, Eosinophils # (Auto) 0.0, Basophils # (Auto) 0.0, Immature Granulocyte # (Auto) 0.1 04/13/23 05:45: Sodium Level 136, Potassium Level 3.8, Chloride Level 101, Carbon Dioxide Level 26, Anion Gap 9, Blood Urea Nitrogen 30H, Creatinine 0.96, Estimat Glomerular Filtration Rate 59, BUN/Creatinine Ratio 31, Glucose Level 144H, Calcium Level 8.3L, Corrected Calcium 8.9, Total Bilirubin 0.3, Aspartate Amino Transf (AST/SGOT) 16, Alanine Aminotransferase (ALT/SGPT) 15, Alkaline Phosphatase 58, Total Protein 6.1L, Albumin 3.3 Assessment/Plan Assessment/Plan Assess & Plan/Chief Complaint Assessment: Ms. Mendoza is a 83 y/o female presented for visual changes in both eyes. 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 -on IV methylprednisolone -pending temporal artery biopsy. Hopefully will go today KAY -BUN 31->30 -CR 1.07->0.96 -IV fluids -encourage oral fluid intake when not NPO for biopsy A Fib -anticoagulants held til after surgery -loop recorder Hypothyroid -managed with home medications Anemia -Hbg 10.6->10.4 -continue to monitor MELINA BEAUCHAMP DO 04/13/232114: Subjective Subjective/Events-last exam Going for biopsy currently Denies any new issues Will await for approval after biopsy to restart oral anticoagulation Objective Exam General: Alert, Oriented X3, Cooperative, No Acute Distress Lungs: Clear to Auscultation, Normal Air Movement Heart: Regular Rate, Normal S1, Normal S2, No Murmurs Psych/Mental Status: Mental Status NL, Mood NL Assessment/Plan Assessment/Plan Assess & Plan/Chief Complaint Temporal artery biopsy Transition steroids to p.o. Supervisory-Addendum Brief Verification & Attestation Participated in pt care: history, MDM, physical Personally performed: exam, history, MDM, supervision of care Care discussed with: Medical Student Procedures: n/a Results interpretation: Verified all documentation Verification and Attestation of Medical Student E/M Service A medical student performed and documented this service in my presence. I re viewed and verified all information documented by the medical student and made modifications to such information, when appropriate. I personally performed the physical exam and medical decision making. Melina Beauchamp, Apr 13, 2023,21:15 TAMI LOPEZ Apr 13, 2023 10:36 MELINA BEAUCHAMP DO Apr 13, 2023 21:15
[2023-04-13] MEDS ORDERED: MUPIROCIN 2% OINTMENT 22 GM TUBE ONE (10:40)
[2023-04-13] MEDS ORDERED: LIDOCAINE 2% w/EPI 1:100,000 20 ML VIAL ONE (10:40)
--- NOTE | 2023-04-13 11:14 | Occupational Ther Daily Note ---
OT Current Status-Daily Note Subjective Patient is NPO, declines oral care, agrees for bathroom ADLS, wait for eye biopsy Mental Status/Objective Patient Orientation: Person, Place, Time, Situation ADL-Treatment standing hair and face grooming. toileting w/ FWW and GB assist for transfers. Patient demonstrated ability to visually locate all items w/o tactile or verbal cues. Therapy Code Descriptions/Definitions Functional [place] Measure: 0=Not Assessed/NA 4=Minimal Assistance 1=Total Assistance 5=Supervision or Setup 2=Maximal Assistance 6=Modified [place] 3=Moderate Assistance 7=Complete IndependenceSCALE: Activities may be completed with or without assistive devices. 8-Xpzrpkrdaj-zgjlrnb completes the activity by him/herself with no assistance from a helper. 5-Set-up or Clean-up Assistance-helper sets up or cleans up; patient completes activity. [place] assists only prior to or following the activity. 4-Supervision or Touching Assistance-helper provides verbal cues and/or touching/steadying and/or contact guard assistance as patient completes activity. Assistance may be provided throughout the activity or intermittently. 3-Partial/Moderate Assistance-helper does LESS THAN HALF the effort. [place] lifts, holds or supports trunk or limbs, but provides less than half the effort. 2-Substantial/Maximal Assistance-helper does MORE THAN HALF the effort. [place] lifts or holds trunk or limbs and provides more than half the effort. 8-Zudqvrdpp-xivymx does ALL the effort. Patient does none of the effort to complete the activity. Or, the assistance of 2 or more helpers is required for the patient to complete the activity. If activity was not attempted, code reason: 7-Patient Refused. 9-Not Applicable-not attempted and the patient did not perform the activity before the current illness, exacerbation or injury. 10-Not Attempted due to Environmental Limitations-(lack of equipment, weather restraints, etc.). 88-Not Attempted due to Medical Conditions or Safety Concerns. Eating (QC): 88 (NPO) Oral Hygiene (QC): 7 On/Off Footwear: 5 Toileting Hygiene (QC): 5 Toilet Transfer (QC): 5 Patient very talkative and required redirection to attend to tasks Education OT Patient Education: Correct positioning, Modified ADL techniques, Progress toward Goal/Update tx plan, Purpose of tx/functional activities, Reviewed precautions, Rehab process, Safety issues, Transfer techniques, Use of adapted equipment Teaching Recipient: Patient Teaching Methods: Demonstration, Discussion Response to Teaching: Reinforcement Needed OT Jail Goals Jail Goals Eating (QC): 6 Oral Hygiene (QC): 5 Toileting Hygiene (QC): 5 Shower/Bathe Self (QC): 5 Upper Body Dressing (QC): 5 Lower Body Dressing (QC): 5 On/Off Footwear (QC): 5 1=Demonstrate adherence to instructed precautions during ADL tasks. 2=Patient will verbalize/demonstrate understanding of assistive devices/modifications for ADL. 3=Patient will improve strength/tolerance for activity to enable patient to pe rform ADL's. OT Education/Plan Problem List/Assessment Assessment: Decreased Activ Tolerance, Decreased Safety Aware, Impaired Self- Care Skills Discharge Recommendations Plan/Recommendations: Continue POC Treatment Plan/Plan of Care Patient would benefit from OT for education, treatment and training to promote independence in ADL's, mobility, safety and/or upper extremity function for ADL's. Plan of Care: ADL Retraining, Functional Mobility, Group Exercise/Act as Ind, UE Funct Exercise/Act Treatment Duration: Apr 16, 2023 Frequency: 3 times per week (3-5 times per week) Rehab Potential: Good Up in recliner all needs met Time Start Time: 08:55 Stop Time: 09:17 DATE: Apr 13, 2023 Total Time Billed (hr/min): 22 Billed Treatment Time ADL 22 min FELICIANO JOHNSON OT Apr 13, 2023 11:14
[2023-04-13] MEDS ORDERED: ceFAZolin INJECTION 1,000 MG ONE (11:57)
[2023-04-13] MEDS ORDERED: morphine INJ 10 MG/ML 1ML (SYR OR VIAL) IVP ONE (13:00)
[2023-04-13] MEDS ORDERED: ONDANSETRON INJECTION 4 MG/2 ML (SDV) IVP PRN (13:00)
--- NOTE | 2023-04-13 13:03 | Progress Note-Post Operative ---
Post-Operative Progess Note Surgeon (s)/University Librarian (s) Surgeon ERNA DICKSON MD University Librarian: none Pre-Operative Diagnosis Right eye loss of vision Post-Operative Diagnosis same Procedure & Operative Findings Date of Procedure 04/13/23 Procedure Performed/Findings excisional biopsy right temporal artery. Anesthesia Type mac with local Estimated Blood Loss Estimated blood loss (mL): minimal Specimens/Packing Specimens Removed right temporal artery ERNA DICKSON MD Apr 13, 2023 13:03
[2023-04-13] MEDS: DOCUSATE SODIUM 100 MG CAPSULE PO SCH (13:29)
[2023-04-13] MEDS: SENNOSIDES 8.6 MG TABLET PO SCH ×2 (13:29→20:04)
[2023-04-13] MEDS: FUROSEMIDE 40 MG TABLET PO SCH (13:31)
[2023-04-13] MEDS: predniSONE 20 MG TABLET PO SCH (13:31)
[2023-04-13] MEDS: BETHANECHOL 25 MG TABLET PO SCH ×2 (13:34→20:04)
[2023-04-13] MEDS: PANTOPRAZOLE 40 MG TABLET PO SCH ×2 (13:34→20:04)
--- NOTE | 2023-04-13 13:46 | Diagnostic Imaging Report ---
PROCEDURE: US carotid duplex, bilateral. TECHNIQUE: Multiple real-time grayscale images were obtained over the carotid arteries in various projections, bilaterally. Additional spectral analysis and color Doppler duplex images were also obtained. INDICATION: Amaurosis fugax. FINDINGS: There is mild plaquing in the distal common carotid arteries bilaterally as well as bilateral carotid bulbs and proximal internal and external carotid arteries. However, velocities are normal bilaterally. No high-grade stenosis or occlusion is identified. Both vertebral arteries demonstrate antegrade flow. IMPRESSION: Mild bilateral carotid plaque. There is no evidence of a hemodynamically significant stenosis. Parameters based on the consensus panel Mendoza-Scale and Doppler ultrasound criteria published April 2003, Radiology, Volume 229. DOPPLER (peak systolic velocity M/S Right Left CCA 0.76 1.16 ICA Proximal 1.11 1.16 ICA Mid 1.07 1.04 ICA Distal 1.00 0.81 RATIO 1.46 1.00 ECA 0.83 1.01 VERT 0.62 0.62 Dictated by: Dictated on workstation # [id number]
--- NOTE | 2023-04-13 22:31 | OPERATIVE REPORT ---
DATE OF SERVICE: 04/13/2023 ATTENDING PRIMARY CARE PHYSICIAN: Cony Poole DO ADMITTING PHYSICIAN: Melina Benjamin MD PREOPERATIVE DIAGNOSIS: Right eye visual loss. POSTOPERATIVE DIAGNOSIS: Right eye visual loss. PROCEDURE: Excisional biopsy, right temporal artery. SURGEON: Erna Dickson MD ANESTHESIA: Monitored anesthesia care with local. ESTIMATED BLOOD LOSS: Minimal. FINDINGS: Normal-appearing temporal artery and vein. DISPOSITION: The patient tolerated the procedure well. INDICATIONS: The patient is a 83-year-old female who was directly admitted from her ophthalmology clinic for concerns of giant cell temporal arteritis. She states that she began having right eye visual changes about 1 week before presentation. She reported a cloudiness on the inferior aspect of her right eye, which progressed to what she described as red colored dots. She reports that she also has had left eye symptoms in the past as well on an intermittent basis. The patient was admitted and underwent a head MRI as well as CT arteriogram of the cerebral vasculature, which did not show any acute infarcts, aneurysms, or any other deficits, only a small vessel arterial sclerosis. The patient also does have a history of atrial fibrillation with rapid ventricular response in the past. She is currently on Xarelto for this. The patient also does have a history of peripheral vascular disease and underwent a right carotid endarterectomy at [facility] in 05/27. She also reports that she has had some odd neurologic symptoms in recent months as well. Upon admission, her laboratory work did show some elevation in inflammatory markers and she is currently on high dose steroids. DESCRIPTION OF PROCEDURE: The patient was brought to the operating room, laid supine on the table. After adequate IV pain and sedative medications and monitored anesthesia care, the left mandaen was prepped and draped in standard surgical fashion. With 2% lidocaine with epinephrine was then used to anesthetize the overlying skin just anterior to the right ear. A vertical skin incision was then made using a #15 blade and the subcutaneous tissue dissected using electrocautery. We then proceeded with identification of temporal artery and vein and proceeded with a dissection of these 2 structures using Metzenbaum scissors as well as electrocautery with visualization of good hemostasis. Once the temporal artery were skeletonized, the proximal and distal ends were tied with 3-0 silk sutures. A 1 cm segment was then excised using Metzenbaum scissors and sent to pathology with visualization of good hemostasis. The good hemostasis was observed. The skin was closed using 4-0 Monocryl in running subcuticular sutures. The patient tolerated the procedure well. We will resume all of her previous medical therapy. She may restart her anticoagulation at any time. From our standpoint, she may also return to her assisted facility at any time. We will also await the biopsy results. Job ID: [id number] DocumentID: [id number] Dictated Date: 04/13/2023 13:09:35 Assembly Line Worker Date: 04/13/2023 22:29:00 Dictated By: ERNA DICKSON MD
[2023-04-14] VITALS (7 sets, daily range): BP systolic 136–182; BP diastolic 68–78
[2023-04-14] MEDS: IBUPROFEN 200 MG TABLET PO SCH ×4 (05:26→23:52)
[2023-04-14] MEDS: POTASSIUM CHLORIDE 10 MEQ TABLET PO SCH (05:26)
[2023-04-14] MEDS: ACETAMINOPHEN 500 MG TABLET PO SCH ×3 (05:26→19:41)
[2023-04-14 05:46] LABS: BASOPHILS % (AUTO) 0 % (0-10); EOSINOPHILS % (AUTO) 0 % (0-10); HEMATOCRIT 36 % (35-52); HEMOGLOBIN 11.6 g/dL (11.5-16.0); LYMPHOCYTES # (AUTO) 1.1 10^3/uL (1.0-4.0); LYMPHOCYTES % (AUTO) 9 % (12-44); MEAN CORPUSCULAR HEMOGLOBIN 30 pg (25-34); MEAN CORPUSCULAR HGB CONC 33 g/dL (32-36); MEAN CORPUSCULAR VOLUME 92 fL (80-99); MEAN PLATELET VOLUME 9.5 fL (9.0-12.2); MONOCYTES # (AUTO) 0.7 10^3/uL (0.0-1.0); MONOCYTES % (AUTO) 6 % (0-12); NEUTROPHILS # (AUTO) 9.5 10^3/uL (1.8-7.8); NEUTROPHILS % (AUTO) 84 % (42-75); PLATELET COUNT 315 10^3/uL (130-400); WHITE BLOOD COUNT 11.3 10^3/uL (4.3-11.0)
[2023-04-14 06:03] LABS: ALBUMIN 3.3 GM/DL (3.2-4.5); POTASSIUM 3.3 MMOL/L (3.6-5.0)
[2023-04-14 06:04] LABS: CALCIUM 8.3 MG/DL (8.5-10.1)
[2023-04-14 06:06] LABS: TOTAL PROTEIN 6.3 GM/DL (6.4-8.2)
[2023-04-14 06:07] LABS: BILIRUBIN,TOTAL 0.3 MG/DL (0.1-1.0)
[2023-04-14 06:09] LABS: CREATININE SERUM 0.93 MG/DL (0.60-1.30)
[2023-04-14] MEDS: predniSONE 20 MG TABLET PO SCH (08:35)
[2023-04-14] MEDS: SENNOSIDES 8.6 MG TABLET PO SCH ×2 (08:35→19:40)
[2023-04-14] MEDS: PANTOPRAZOLE 40 MG TABLET PO SCH ×2 (08:35→19:41)
[2023-04-14] MEDS: DOCUSATE SODIUM 100 MG CAPSULE PO SCH (08:35)
[2023-04-14] MEDS: BETHANECHOL 25 MG TABLET PO SCH ×2 (08:36→19:40)
--- NOTE | 2023-04-14 09:49 | Progress Note ---
TAMI LOPEZ 04/14/23 0949: Progress Note Ms. Mendoza is an 83 y/o female w/ PMH COPD, A Fib, CHF, HTN, anemia, hypothyroidism presenting as a direct admit from her ophthalmology clinic with Dr. Lei for concerns of giant cell arteritis on 04/09. She notes that it started with the bottom of her right eye, with some cloudiness which progressed to red in color with dots throughout. She had similar visual changes in her left eye a day later, and she has began losing the ability to see/read. She has not taken her blood thinner for 3 months. She was placed on IV methyprednisolone. Initial coag labs showed normal PT, INR, PTT, but D dimer of 1.31. Head CT/MRI, and Brain MRA on 04/09 showed no evidence of acute infarction or aneurysm, but was positive for chronic microvascular disease, a very small caliber right A1 segment, and the right anterior cerebral artery supplied predominantly via patent anterior communicating artery. She has not had any visual changes since her initial presentation to [facility]. A carotid ultrasound and temporal artery biopsy were performed 04/13. Carotid US showed mild bilateral plaques, with no hemodynamically significant stenosis. Ms. Mendoza is doing well today and will be discharged back to [facility]. Biopsy will be reviewed once results are available. She denies any pain today or changes in vision since admission. She denies SOB/CP or palpitations. She is ready to be going home. Per cardiology, she will be started on her blood thinners again. MELINA BEAUCHAMP DO 04/14/231910: Supervisory-Addendum Brief Verification & Attestation Participated in pt care: history, MDM, physical Personally performed: exam, history, MDM, supervision of care Care discussed with: Medical Student Procedures: n/a Results interpretation: Verified all documentation Verification and Attestation of Medical Student E/M Service A medical student performed and documented this service in my presence. I reviewed and verified all information documented by the medical student and made modifications to such information, when appropriate. I personally performed the physical exam and medical decision making. Melina Beauchamp Apr 14, 2023,19:11 TAMI LOPEZ Apr 14, 2023 09:49 MELINA BEAUCHAMP DO Apr 14, 2023 19:11
--- NOTE | 2023-04-14 10:38 | Physical Therapy Daily Note ---
PT Daily Note-Current Subjective Pt found lying in bed /c staff present upon entry. Agreed to PT. No reports of pain pre-treatment. States that she hopes her vision comes back. Also states that she is able to read at close distances but that may just be because she is looking at familiar objects. Pain Section J - Health Conditions 1. Rarely or not at all 2. Occasionally 3. Frequently 4. Almost constantly 8. Unable to answer Pain Effect on Sleep: 88 Pain Interference with Therapy: 88 Pain Interference w/Day-to-Day: 88 Mental Status Patient Orientation: Person, Place Transfers SCALE: Activities may be completed with or without assistive devices. 7-Jpgucvwbqd-eyykiry completes the activity by him/herself with no assistance from a helper. 5-Set-up or Clean-up Assistance-helper sets up or cleans up; patient completes activity. [place] assists only prior to or following the activity. 4-Supervision or Touching Assistance-helper provides verbal cues and/or touching/steadying and/or contact guard assistance as patient completes activity. Assistance may be provided throughout the activity or intermittently. 3-Partial/Moderate Assistance-helper does LESS THAN HALF the effort. [place] lifts, holds or supports trunk or limbs, but provides less than half the effort. 2-Substantial/Maximal Assistance-helper does MORE THAN HALF the effort. [place] lifts or holds trunk or limbs and provides more than half the effort. 9-Dsmzvabld-gzgwui does ALL the effort. Patient does none of the effort to complete the activity. Or, the assistance of 2 or more helpers is required for the patient to complete the activity. If activity was not attempted, code reason: 7-Patient Refused. 9-Not Applicable-not attempted and the patient did not perform the activity before the current illness, exacerbation or injury. 10-Not Attempted due to Environmental Limitations-(lack of equipment, weather restraints, etc.). 88-Not Attempted due to Medical Conditions or Safety Concerns. Sit to Lying (QC): 6 Lying to Sitting/Side of Bed(Q: 6 Sit to Stand (QC): 6 Weight Bearing Full Weight Bearing Full Weight Bearing Gait Training Does the Patient Walk?: Yes Distance: 300 Walk 10 feet (QC): 4 Walk 50 ft with 2 Turns(QC): 4 Walk 150 ft (QC): 4 Gait Persons Needed: 1 Gait Assistive Device: FWW Assessment Current Status: Good Progress Pt performs all bed mobility and sit to stand transfers independently. She ambulated 300 feet /c use of a FWW but does require occasional short standing rest breaks due to reported fatigue. CGA required for safety due to vision and balance deficits. Pt able to navigate hallways without verbal cues to avoid objects. Displays a steady gait pattern /c good step lengths. Pt left supine in bed /c call light in place and all needs met post-treatment. Continue to progress pt per POC. PT Imaging Administrator Goals Imaging Administrator Goals PT Correction Goals Time Frame: Apr 17, 2023 Roll Left & Right (QC): 6 Sit to Lying (QC): 6 Lying-Sitting on Side/Bed(QC): 6 Sit to Stand (QC): 6 Chair/Kfq-lu-Rqfbr Xfer(QC): 6 Toilet Transfer (QC): 6 Car Transfer (QC): 6 Does the Patient Walk: Yes Walk 10 feet (QC): 6 Walk 50ft with 2 Turns (QC): 6 Walk 150 ft (QC): 6 Walking 10ft on Uneven Surface: 6 1 Step (curb) (QC): 6 4 Steps (QC): 6 12 Steps (QC): 6 Picking up an Object (QC): 6 PT Plan Treatment/Plan Treatment Plan: Continue Plan of Care Treatment Plan: Bed Mobility, Education, Functional Activity Samy, Functional Strength, Gait, Safety, Therapeutic Exercise, Transfers Treatment Duration: Apr 17, 2023 Frequency: 11 times per week Time Time In: 1014 Time Out: 1031 DATE: Apr 14, 2023 Total Billed Treatment Time: 17 Total Billed Treatment 1 visit GT x 1 SONNY SPARROW PATTERN ROOM ATTENDANT Apr 14, 2023 10:38
--- NOTE | 2023-04-14 11:45 | Consultation-Cardiology ---
HPI-Cardiology Cardiology Consultation: Date of Consultation 04/14/23 Time Seen by a Provider: 11:40 Date of Admission 04-09-23 Attending Physician Cony Poole DO Admitting Physician Admitting Physician: Melina Benjamin DO Attending Physician: Melina Benjamin DO Consulting Physician Roxy Lopez MD HPI: Chief Complaint: OAC management Provider requesting consult: Dr. Benjamin Ms. Lozano is an 83 yr old female who I have seen in room 405. She reports she has been residing at [facility] since her hospitalization in January 2023. She states she woke up last with blurred vision in her right eye. She reports then on Wednesday morning she woke up with blurred vision in her left eye. She states she was seen by Dr. Lei and then sent to the hospital. She reports she has been off of her Xarelto since January. She reports she continues to have bilat blurred vision. She denies any c/o CP, palpitations, dyspnea, syncope or near syncope. Review of Systems-Cardiology Review of Systems Constitutional: No chills, No fever Eyes: As described under HPI Ears/Nose/Throat: No epistaxis, No nasal drainage Respiratory: As described under HPI Cardiovascular: As described under HPI Gastrointestinal: No constipation, No diarrhea, No nausea, No vomiting Genitourinary: No dysuria, No hematuria Musculoskeletal: no symptoms reported Psychiatric/Neurological: No anxiety, No depression, No seizure, No focal weakness, No syncope Hematologic: No bleeding abnormalities All Other Systems Reviewed Negative Unless Noted: Yes KML-Sqfyng-Cvmubm Hx Patient Social History Marrital Status: single Employed/Student: retired Smoking Status: Never a Smoker Alcohol Use?: No Pt feels they are or have been: No Immunizations Up To Date Tetanus Booster (TDap): Unknown Date of Pneumonia Vaccine: Jan 13, 2016 Date of Influenza Vaccine: May 28, 2021 Past Medical History PMH As described under Assessment. Family Medical History Family Medical History: She denies any family h/o CAD. Family History: Asthma Colon cancer Deafness or hearing loss Diabetes mellitus Hypertension Neoplasm Thyroid disease Allergies and Home Medications Allergies Coded Allergies: codeine (Unverified Allergy, Mild, Vomiting, 02/18/22) adhesive tape (Unverified Allergy, Unknown, 02/18/22) amoxicillin (Unverified Allergy, Unknown, 02/01/23) PT HAS TOLERATED CEPHALOSPORINS IN PAST (ROCEPHIN, CEFEPIME, CEFDINIR) Patient Home Medication List Acetaminophen (Tylenol) 325 Mg Tablet, 325 MG PO Q4H PRN for PAIN-MILD (1-4) Prescribed by: MELINA BENJAMIN on 02/04/231157 Last Action: Reviewed Albuterol Sulfate (Ventolin Hfa) 1 Puff Puff, 2 PUFF INH Q4H PRN for SHORTNESS OF BREATH Prescribed by: MELINA BENJAMIN on 02/04/231157 Last Action: Reviewed Aspirin (Aspirin EC) 81 Mg Tablet.dr, 81 MG PO HS Prescribed by: MELINA BENJAMIN on 02/04/231157 Last Action: Reviewed Atorvastatin Calcium (Atorvastatin Calcium) 20 Mg Tablet, 20 MG PO HS Prescribed by: MELINA BENJAMIN on 02/04/231157 Last Action: Reviewed Bethanechol Chloride (Bethanechol Chloride) 25 Mg Tablet, 25 MG PO Q12H Prescribed by: MELINA BENJAMIN on 02/04/231157 Last Action: Reviewed Bifidobacterium Infantis (Align Jr) 10.5 Mg (10 Million Cell) Tab.chew, 10.5 MG PO HS Prescribed by: MELINA BENJAMIN on 02/04/231157 Last Action: Reviewed Cholecalciferol (Vitamin D3) (Vitamin D3) 50 Mcg (2000 Unit) Capsule, 50 MCG PO DAILY Prescribed by: MELINA BENJAMIN on 02/04/231157 Last Action: Reviewed Cyanocobalamin (Vitamin B-12) (Vitamin B-12) 500 Mcg Tablet, 500 MCG PO HS Prescribed by: MELINA BENJAMIN on 02/04/231157 Last Action: Reviewed Docusate Sodium (Colace) 100 Mg Capsule, 100 MG PO DAILY Prescribed by: MELINA BENJAMIN on 02/04/231157 Last Action: Reviewed Furosemide (Lasix) 40 Mg Tablet, 20 MG PO Q48H Prescribed by: MELINA BENJAMIN on 02/04/231157 Last Action: Reviewed Ipratropium/Albuterol Sulfate (Iprat-Albut 0.5-3(2.5) mg/3 ml) 0.5 Mg-3 Mg (2.5 Mg Base)/3 Ml Ampul.neb, 3 ML IH Q4H PRN for SHORTNESS OF BREATH Prescribed by: MELINA BENJAMIN on 02/04/231157 Last Action: Reviewed Levothyroxine Sodium (Synthroid) 75 Mcg Tablet, 75 MCG PO MO,WE,FR Prescribed by: MELINA BENJAMIN on 02/04/231157 Last Action: Reviewed Levothyroxine Sodium (Synthroid) 88 Mcg Tablet, 88 MCG PO CHAVEZ,,TH,SA Prescribed by: MELINA BENJAMIN on 02/04/231157 Last Action: Reviewed Pantoprazole Sodium (Pantoprazole Sodium) 40 Mg Tablet.dr, 40 MG PO BID Prescribed by: MELINA BENJAMIN on 02/04/231157 Last Action: Reviewed Polyethylene Glycol 3350 (Miralax) 17 Gram Powd.pack, 17 GM PO DAILY Prescribed by: MELINA BENJAMIN on 02/04/231157 Last Action: Reviewed Potassium Chloride (Klor-Con M20) 20 Meq Tab.er.prt, 20 MEQ PO DAILY Prescribed by: MELINA BENJAMIN on 02/04/231157 Last Action: Reviewed Sertraline HCl (Sertraline HCl) 50 Mg Tablet, 50 MG PO HS, (Reported) Entered as Reported by: Sara Vidales on 04/10/231158 Last Action: Reviewed Discontinued Medications Sertraline HCl (Sertraline HCl) 25 Mg Tablet, 12.5 MG PO HS Discontinued Reason: No Longer Taking Prescribed by: MELINA BENJAMIN on 02/04/231157 Last Action: Discontinued Physical Exam-Cardiology Physical Exam Vital Signs/I&O 04/13/23 04/14/23 04/14/23 04/14/23 23:52 01:00 03:41 07:43 Temp 36.8 36.5 Pulse 79 62 78 62 Resp 18 18 B/P (MAP) 132/74 (93) 136/68 (90) Pulse Ox 96 96 O2 Delivery Room Air Room Air O2 Flow Rate 0.00 0.00 0.00 0.00 04/14/23 04/14/23 04/14/23 08:00 08:25 11:05 Temp 36.5 36.4 Pulse 69 67 Resp 16 16 B/P (MAP) 142/72 (95) 150/68 (95) Pulse Ox 96 96 96 O2 Delivery Room Air Room Air Room Air O2 Flow Rate 0.00 04/14/23 00:00 Intake Total 1142 ml Output Total 300 ml Balance 842 ml Capillary Refill : Data Review Labs Laboratory Tests 04/14/23 05:30: White Blood Count 11.3H, Red Blood Count 3.89, Hemoglobin 11.6, Hematocrit 36, Mean Corpuscular Volume 92, Mean Corpuscular Hemoglobin 30, Mean Corpuscular Hemoglobin Concent 33, Red Cell Distribution Width 13.5, Platelet Count 315, Mean Platelet Volume 9.5, Immature Granulocyte % (Auto) 1, Neutrophils (%) (Auto) 84H, Lymphocytes (%) (Auto) 9L, Monocytes (%) (Auto) 6, Eosinophils (%) (Auto) 0, Basophils (%) (Auto) 0, Neutrophils # (Auto) 9.5H, Lymphocytes # (Auto) 1.1, Monocytes # (Auto) 0.7, Eosinophils # (Auto) 0.0, Basophils # (Auto) 0.0, Immature Granulocyte # (Auto) 0.1, Sodium Level 137, Potassium Level 3.3L, Chloride Level 101, Carbon Dioxide Level 26, Anion Gap 10, Blood Urea Nitrogen 29H, Creatinine 0.93, Estimat Glomerular Filtration Rate 61, BUN/Creatinine Ratio 31, Glucose Level 118H, Calcium Level 8.3L, Corrected Calcium 8.9, Total Bilirubin 0.3, Aspartate Amino Transf (AST/SGOT) 17, Alanine Aminotransferase (ALT/SGPT) 15, Alkaline Phosphatase 56, Total Protein 6.3L, Albumin 3.3 Laboratory Tests 04/13/23 05:00 04/13/23 05:45 04/14/23 05:30 Radiology NAME: LATRICE LOZANO [facility] REC#: [id number] PT STATUS: ADM IN : 1940 PHYSICIAN: ERNA TRACY MD ADMIT DATE: 04/09/23 Signed Date of Exam:04/13/23 US CAROTID YURIDIA COMPLETE [id number] PROCEDURE: US carotid duplex, bilateral. TECHNIQUE: Multiple real-time grayscale images were obtained over the carotid arteries in various projections, bilaterally. Additional spectral analysis and color Doppler duplex images were also obtained. INDICATION: Amaurosis fugax. FINDINGS: There is mild plaquing in the distal common carotid arteries bilaterally as well as bilateral carotid bulbs and proximal internal and external carotid arteries. However, velocities are normal bilaterally. No high-grade stenosis or occlusion is identified. Both vertebral arteries demonstrate antegrade flow. IMPRESSION: Mild bilateral carotid plaque. There is no evidence of a hemodynamically significant stenosis. Parameters based on the consensus panel Mendoza-Scale and Doppler ultrasound criteria published April 2003, Radiology, Volume 229. DOPPLER (peak systolic velocity M/S Right Left CCA 0.76 1.16 ICA Proximal 1.11 1.16 ICA Mid 1.07 1.04 ICA Distal 1.00 0.81 RATIO 1.46 1.00 ECA 0.83 1.01 VERT 0.62 0.62 Dictated by: Dictated on workstation # [id number] Dict: 04/13/23 1342 Trans: 04/13/23 1611 [id number] Interpreted by: JESSE SCHAEFFER MD Electronically signed by: JESSE SCHAEFFER MD 04/13/23 1611 NAME: LATRICE LOZANO [facility] REC#: [id number] PT STATUS: ADM IN : 1940 PHYSICIAN: AGUSOT LEA MD ADMIT DATE: 04/09/23 Signed Date of Exam:04/09/23 CT ANGIO CHEST W EXAMINATION: CT angiography of the chest. TECHNIQUE: Contrast enhanced thin section helical images were obtained through the chest with intravenous contrast timed for the optimal opacification of the arterial structures per CTA protocol. Post-processing, reconstructions and interpretation of angiographic images of the vessels was performed. 3D MIP reconstructions were performed and reviewed. All CT scans use one or more of the following dose optimizing techniques: automated exposure control, MA and/or KvP adjustment based on a patient size and exam type, or iterative reconstruction. HISTORY: Atrial fibrillation, elevated D-Dimer. COMPARISON: 04/08/2020. FINDINGS: Vascular: There are no filling defects within the pulmonary arteries. The thoracic aorta is normal in caliber. Thyroid: The thyroid is normal. Mediastinum: Heart size is normal without significant pericardial effusion. No suspicious lymphadenopathy. Lungs and airways: There are bilateral pleural effusions, right greater than left. There are mild groundglass opacities seen within the lungs with some peripheral predominant reticulation or scarring, greatest within the right upper lobe and lung bases. There appears to be some septal thickening in the lung bases. No pneumothorax. Likely mucous plugging is present within the airways. Upper abdomen: The subphrenic structures are normal. Musculoskeletal: Degenerative changes of the spine without suspicious osseous lesion or compression fracture. IMPRESSION: 1. No findings of pulmonary embolus. 2. Bilateral pleural effusions, right greater than left. 3. Groundglass opacities and septal thickening which could be secondary to pulmonary edema or atypical pneumonia. There is some peripheral predominant reticulation, greatest in the right upper lobe, which could be related to consolidation or scarring. Dictated by: Dictated on workstation # [id number] Dict: 04/09/231813 Trans: 04/09/231825 [id number] Interpreted by: KALEB MAGANA DO Electronically signed by: KALEB MAGANA DO 04/09/231825 NAME: LATRICE LOZANO [facility] REC#: [id number] PT STATUS: ADM IN : 1940 PHYSICIAN: AGUSTO LEA MD ADMIT DATE: 04/09/23 Signed Date of Exam:04/09/23 MRA HEAD W/O CONTRAST PROCEDURE: MR angiography of the brain without the use of contrast. TECHNIQUE: 3D [id number] non contrast enhanced MR angiography of the head was performed. A source data was reformatted into rotating MIP projections. DATE: April 09, 2023. INDICATION: 83-year-old female, decreased vision. COMPARISON: CT head without contrast April 09, 2023. FINDINGS: The imaged portions of the left internal carotid artery are patent. The left middle cerebral artery is patent. The left anterior cerebral artery is patent. The right anterior cerebral artery is very small in caliber in its A1 segment and predominantly supplied via patent anterior communicating artery. The right A2 segment is patent. The right middle cerebral artery is patent. The imaged portions of the right internal carotid artery are patent. The imaged portions of the bilateral vertebral arteries are patent. The basilar artery is patent. There is a right posterior communicating artery predominantly supplying blood flow to the right posterior cerebral artery which is patent. The left posterior cerebral artery is patent. There is no identified aneurysm. IMPRESSION: 1. 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 The right anterior cerebral artery is predominantly supplied via a patent anterior communicating artery which is patent. 2. Additional arterial head vasculature is patent with the right posterior cerebral artery being supplied predominantly via a right posterior communicating artery. 3. No identified aneurysm. Dictated by: Dictated on workstation # [id number] Dict: 04/09/23 1516 Trans: 04/09/231700 [id number] Interpreted by: MICHAELLE FISHER MD Electronically signed by: MICHAELLE FISHER MD 04/09/231700 NAME: LATRICE LOZANO [facility] REC#: [id number] PT STATUS: ADM IN : 1940 PHYSICIAN: AGUSTO LEA MD ADMIT DATE: 04/09/23 Signed Date of Exam:04/09/23 MRI BRAIN W/WO CONTRAST PROCEDURE: MR imaging of the brain with and without contrast. TECHNIQUE: Multiplanar, multisequence MR imaging of the brain was performed with and without contrast. DATE: April 09, 2023. COMPARISON: CT head without contrast April 09, 2023. HISTORY: 83-year-old female, decreased vision. FINDINGS: There is no restricted diffusion. There are no areas of abnormal intracranial susceptibility. There is proportional prominence of the ventricles and additional CSF spaces, consistent with moderate cerebral volume loss. There is no abnormal extra axial fluid collection. There is no acute intracranial hemorrhage. There is no mass effect or midline shift. There are extensive areas of confluent T2 and FLAIR hyperintense signal in the periventricular and subcortical white matter as well as T2 hyperintense foci within the bhaskar. These are nonspecific but may reflect extensive findings of chronic small vessel ischemic disease. There are some motion limitations on the post contrast images. There is no identified area of abnormal intracranial enhancement. There is no enhancement of the optic nerves. There is no identified suprasellar mass. The optic chiasm is unremarkable in appearance. There is no abnormal fluid in the optic nerve sheaths. There is no cupping of the optic discs. The globes are grossly unremarkable in appearance. There is no identified abnormality of the extraocular muscles. There is partial opacification in the right mastoid air cells. The paranasal sinuses are well-aerated. IMPRESSION: 1. No evidence of an acute infarct or other acute intracranial abnormality. 2. Moderate cerebral volume loss with probable extensive findings of chronic small vessel ischemic disease. 3. No abnormal enhancement of the optic nerves or apparent abnormality within the orbits on standard MRI brain protocol without and with intravenous contrast. Dictated by: Dictated on workstation # [id number] Dict: 04/09/23 1519 Trans: 04/09/231700 [id number] Interpreted by: MICHAELLE FISHER MD Electronically signed by: MICHAELLE FISHER MD 04/09/23 1701 A/P-Cardiology Assessment/Admission Diagnosis Right eye vision loss with concern for Giant Cell Arteritis - Excisional biopsy, right temporal artery by Dr. Tracy on 04-13-23 H/O GI bleed in January 2023 - [facility] endoscopy showing severe gastritis, hiatal hernia and esophageal stricture and sigmoid diverticulosis. No active bleeding was reported during scope - OAC was stoppped at time of discharge by medical services Acute on chronic diastolic CHF - MPI of 09-22-2022 showed no evidence of ischemia or infarction. No regional wall motion abnormality. MPI 56% - clinically improving ; shortness of breath significantly improved SSS and PAF - S/P ILR implant 03-01-[address] Garnica - OAC with Xarelto - had been held d/t GIB with signif anemia in January 2023 and stopped at time of discharge by medical services - EP consult with Dr. Miller who has advised continued medical management, recommended starting Flecainide or Amiodarone per last note in Jul 2022. - ECG on 10-14-22: NSR with LBBB and PACs - Recurrent A Fib for which she underwent cardioversion on 11/16/[address] Green - was started on Flecainide 100mg BID - a-fib with RVR on EKG of 12-10-22. Flecainide d/c'd, amiodarone initiated on 12-11-22 - ext elec CV to sinus rhythm on 12-14-22 Hypothyroidism,treated with thyroid replacement therapy. Managed by PCP Hypertension, stable Carotid art disease, history of s/p R CEA by Dr Adams on 05/26/21 at [place] Mild bilat dz per u/s of 09-10-2021 Mitral regurg and mild pulm htn - Echocardiogram of 12-04-[address] Garnica showed LVEF 55-65%. LA mildly dilated. Mod to severe MR. PASP 40-45 mmHg - Echocardiogram of 09-02-20 showed LVEF 55-60%. Grade 1 diastolic dysfunction. Mild MR. AoV sclerosis with mild regurg. PASP 40-45 mmHg - sleep studies by Dr. Brown on 02-14-21 did not indicate sleep apnea - a-fib seen during the test - Echo of 12-11-22: LVEF 55-60%, mod to sev enlargement of LA, mild enlargement of RA, mild to mod MR, triv AI, L pleural eff, PASP 45-50 mmHg COPD with nocturnal hypoxemia Extobaccoism Chronic, bilateral leg swelling, likely related to venous insuff Chronic scoliosis and degenerative cervical spinal disease (chronically stiff neck and shoulders) Discussion and Recomendations S/P excisional biopsy of the right temporal artery d/t concern for giant cell arteritis on 04-13-[address] Tracy Known h/o PAF - previously had been on OAC up until hospitalization for GIB and anemia in Jan 2023 (see endo reports above) - we advise resumption of OAC with Eliquis for stroke prophylaxis when ok with medical/surgical services Monitor lab closely Continue all other medications Further recs will be based on her hospital course We would like to thank Dr. Benjamin for this consult BRITTANEY PERRIN Apr 14, 2023 11:44
--- NOTE | 2023-04-14 14:32 | Occupational Ther Daily Note ---
OT Current Status-Daily Note Subjective Patient reports eyes are recovering from surgery. Still blurry but able to familiarize forms to numbers and letters Mental Status/Objective Patient Orientation: Person, Place, Time, Situation ADL-Treatment Declines she is too tired for ADLS and agrees to Sitting EOB ther ex Therapy Code Descriptions/Definitions Functional [place] Measure: 0=Not Assessed/NA 4=Minimal Assistance 1=Total Assistance 5=Supervision or Setup 2=Maximal Assistance 6=Modified [place] 3=Moderate Assistance 7=Complete IndependenceSCALE: Activities may be completed with or without assistive devices. 9-Cjigezrqnz-nckbrhg completes the activity by him/herself with no assistance fr om a helper. 5-Set-up or Clean-up Assistance-helper sets up or cleans up; patient completes activity. [place] assists only prior to or following the activity. 4-Supervision or Touching Assistance-helper provides verbal cues and/or touching/steadying and/or contact guard assistance as patient completes activity. Assistance may be provided throughout the activity or intermittently. 3-Partial/Moderate Assistance-helper does LESS THAN HALF the effort. [place] lifts, holds or supports trunk or limbs, but provides less than half the effort. 2-Substantial/Maximal Assistance-helper does MORE THAN HALF the effort. [place] lifts or holds trunk or limbs and provides more than half the effort. 7-Pgqtmxvfo-jmeztc does ALL the effort. Patient does none of the effort to complete the activity. Or, the assistance of 2 or more helpers is required for the patient to complete the activity. If activity was not attempted, code reason: 7-Patient Refused. 9-Not Applicable-not attempted and the patient did not perform the activity before the current illness, exacerbation or injury. 10-Not Attempted due to Environmental Limitations-(lack of equipment, weather restraints, etc.). 88-Not Attempted due to Medical Conditions or Safety Concerns. Other Treatment Upright sitting w/ BUE extended 90 degrees flexion. scissor and ARM jacks motions, 10 reps each Education OT Patient Education: Correct positioning, Modified ADL techniques, Progress toward Goal/Update tx plan, Purpose of tx/functional activities, Reviewed precautions, Rehab process, Safety issues, Transfer techniques Teaching Recipient: Patient Teaching Methods: Demonstration, Discussion Response to Teaching: Return Demonstration, Reinforcement Needed OT Longterm Goals Glue Spreading Machine Operator Goals Eating (QC): 6 Oral Hygiene (QC): 5 Toileting Hygiene (QC): 5 Shower/Bathe Self (QC): 5 Upper Body Dressing (QC): 5 Lower Body Dressing (QC): 5 On/Off Footwear (QC): 5 1=Demonstrate adherence to instructed precautions during ADL tasks. 2=Patient will verbalize/demonstrate understanding of assistive devices/modifications for ADL. 3=Patient will improve strength/tolerance for activity to enable patient to perform ADL's. OT Education/Plan Problem List/Assessment Assessment: Decreased Activ Tolerance Discharge Recommendations Plan/Recommendations: Continue POC Treatment Plan/Plan of Care Patient would benefit from OT for education, treatment and training to promote independence in ADL's, mobility, safety and/or upper extremity function for ADL's. Plan of Care: ADL Retraining, Functional Mobility, Group Exercise/Act as Ind, UE Funct Exercise/Act Treatment Duration: Apr 16, 2023 Frequency: 3 times per week (3-5 times per week) Rehab Potential: Good Time Start Time: 14:00 Stop Time: 14:21 DATE: Apr 14, 2023 Total Time Billed (hr/min): 21 Billed Treatment Time EX 21 min FELICIANO JOHNSON OT Apr 14, 2023 14:32
--- NOTE | 2023-04-14 16:06 | Anesthesia-General Post-Op ---
General Patient Condition Mental Status/LOC: Same as Preop Cardiovascular: Satisfactory Nausea/Vomiting: Absent Respiratory: Satisfactory Pain: Controlled Complications: Absent Post Op Complications Complications None Follow Up Care/Instructions Patient Instructions None needed. Anesthesia/Patient Condition Patient Condition Patient is doing well, no complaints, stable vital signs, no apparent adverse anesthesia problems. No complications reported per nursing. GUS FRAGOSO DO Apr 14, 2023 16:06
[2023-04-14] MEDS: hydrALAZINE 25 MG TABLET PO PRN (19:40)
[2023-04-14] MEDS: APIXABAN 5 MG TABLET PO SCH (19:40)
--- NOTE | 2023-04-14 21:58 | Consultation-Cardiology ---
HPI-Cardiology Cardiology Consultation: Date of Consultation 04/14/23 Time Seen by a Provider: 18:00 Date of Admission Attending Physician Cony Poole DO Admitting Physician Admitting Physician: Melina Beauchamp DO Attending Physician: Melina Beauchamp DO Consulting Physician TINA BERG MD, MA, FACP, FACC, FSCAI, CCDS HPI: Chief Complaint: OAC management Provider requesting consult: Dr. Beauchamp Ms. Mendoza is an 83 yr old female who I have seen in room 405. She reports she has been residing at [facility] since her hospitalization in January 2023. She states she woke up last with blurred vision in her right eye. She reports then on Wednesday morning she woke up with blurred vision in her left eye. She states she was seen by Dr. Lei and then sent to the hospital. She reports she has been off of her Xarelto since January. She reports she continues to have bilat blurred vision. She denies any c/o CP, palpitations, dyspnea, syncope or near syncope. Review of Systems-Cardiology Review of Systems Constitutional: No chills, No fever Eyes: As described under HPI Ears/Nose/Throat: No epistaxis, No nasal drainage Respiratory: As described under HPI Cardiovascular: As described under HPI Gastrointestinal: No constipation, No diarrhea, No nausea, No vomiting Genitourinary: No dysuria, No hematuria Musculoskeletal: no symptoms reported Psychiatric/Neurological: No anxiety, No depression, No seizure, No focal weakness, No syncope Hematologic: No bleeding abnormalities All Other Systems Reviewed Negative Unless Noted: Yes [id number] Hx Patient Social History Marrital Status: single Employed/Student: retired Smoking Status: Never a Smoker Alcohol Use?: No Pt feels they are or have been: No Immunizations Up To Date Tetanus Booster (TDap): Unknown Date of Pneumonia Vaccine: Jan 13, 2016 Date of Influenza Vaccine: May 28, 2021 Past Medical History PMH As described under Assessment. Family Medical History Family Medical History: She denies any family h/o CAD. Family History: Asthma Colon cancer Deafness or hearing loss Diabetes mellitus Hypertension Neoplasm Thyroid disease Allergies and Home Medications Allergies Coded Allergies: codeine (Unverified Allergy, Mild, Vomiting, 02/18/22) adhesive tape (Unverified Allergy, Unknown, 9/14/22) amoxicillin (Unverified Allergy, Unknown, 02/01/23) PT HAS TOLERATED CEPHALOSPORINS IN PAST (ROCEPHIN, CEFEPIME, CEFDINIR) Patient Home Medication List Home Medication List Reviewed: Yes Acetaminophen (Tylenol) 325 Mg Tablet, 325 MG PO Q4H PRN for PAIN-MILD (1-4) Prescribed by: MELINA BEAUCHAMP on 02/04/231157 Last Action: Reviewed Albuterol Sulfate (Ventolin Hfa) 1 Puff Puff, 2 PUFF INH Q4H PRN for SHORTNESS OF BREATH Prescribed by: MELINA BEAUCHAMP on 02/04/231157 Last Action: Reviewed Aspirin (Aspirin EC) 81 Mg Tablet.dr, 81 MG PO HS Prescribed by: MELINA BEAUCHAMP on 02/04/231157 Last Action: Reviewed Atorvastatin Calcium (Atorvastatin Calcium) 20 Mg Tablet, 20 MG PO HS Prescribed by: MELINA BEAUCHAMP on 02/04/231157 Last Action: Reviewed Bethanechol Chloride (Bethanechol Chloride) 25 Mg Tablet, 25 MG PO Q12H Prescribed by: MELINA BEAUCHAMP on 02/04/231157 Last Action: Reviewed Bifidobacterium Infantis (Align Jr) 10.5 Mg (10 Million Cell) Tab.chew, 10.5 MG PO HS Prescribed by: MELINA BEAUCHAMP on 02/04/231157 Last Action: Reviewed Cholecalciferol (Vitamin D3) (Vitamin D3) 50 Mcg (2000 Unit) Capsule, 50 MCG PO DAILY Prescribed by: MELINA BEAUCHAMP on 02/04/231157 Last Action: Reviewed Cyanocobalamin (Vitamin B-12) (Vitamin B-12) 500 Mcg Tablet, 500 MCG PO HS Prescribed by: MELINA BEAUCHAMP on 02/04/231157 Last Action: Reviewed Docusate Sodium (Colace) 100 Mg Capsule, 100 MG PO DAILY Prescribed by: MELINA BEAUCHAMP on 02/04/231157 Last Action: Reviewed Furosemide (Lasix) 40 Mg Tablet, 20 MG PO Q48H Prescribed by: MELINA BEAUCHAMP on 02/04/231157 Last Action: Reviewed Ipratropium/Albuterol Sulfate (Iprat-Albut 0.5-3(2.5) mg/3 ml) 0.5 Mg-3 Mg (2.5 Mg Base)/3 Ml Ampul.neb, 3 ML IH Q4H PRN for SHORTNESS OF BREATH Prescribed by: MELINA BEAUCHAMP on 02/04/231157 Last Action: Reviewed Levothyroxine Sodium (Synthroid) 75 Mcg Tablet, 75 MCG PO MO,WE,FR Prescribed by: MELINA BEAUCHAMP on 02/04/231157 Last Action: Reviewed Levothyroxine Sodium (Synthroid) 88 Mcg Tablet, 88 MCG PO CHAVEZ,TU,TH,SA Prescribed by: MELINA BEAUCHAMP on 02/04/231157 Last Action: Reviewed Pantoprazole Sodium (Pantoprazole Sodium) 40 Mg Tablet.dr, 40 MG PO BID Prescribed by: MELINA BEAUCHAMP on 02/04/231157 Last Action: Reviewed Polyethylene Glycol 3350 (Miralax) 17 Gram Powd.pack, 17 GM PO DAILY Prescribed by: MELINA BEAUCHAMP on 02/04/231157 Last Action: Reviewed Potassium Chloride (Klor-Con M20) 20 Meq Tab.er.prt, 20 MEQ PO DAILY Prescribed by: MELINA BEAUCHAMP on 02/04/231157 Last Action: Reviewed Sertraline HCl (Sertraline HCl) 50 Mg Tablet, 50 MG PO HS, (Reported) Entered as Reported by: Sara Vidales on 04/10/231158 Last Action: Reviewed Discontinued Medications Sertraline HCl (Sertraline HCl) 25 Mg Tablet, 12.5 MG PO HS Discontinued Reason: No Longer Taking Prescribed by: MELINA BEAUCHAMP on 02/04/231157 Last Action: Discontinued Physical Exam-Cardiology Physical Exam Vital Signs/I&O 04/14/23 04/14/23 04/14/23 04/14/23 11:05 12:13 17:06 17:39 Temp 36.4 36.8 Pulse 67 80 67 Resp 16 20 B/P (MAP) 150/68 (95) 148/76 (100) Pulse Ox 96 94 O2 Delivery Room Air Room Air 04/14/23 04/14/23 04/14/23 19:00 19:25 19:44 Temp 36.9 Pulse 69 63 Resp 20 B/P (MAP) 173/73 (106) Pulse Ox 96 O2 Delivery Room Air Room Air 04/14/23 00:00 Intake Total 1142 ml Output Total 300 ml Balance 842 ml Capillary Refill : Data Review Labs Laboratory Tests 04/14/23 05:30: White Blood Count 11.3H, Red Blood Count 3.89, Hemoglobin 11.6, Hematocrit 36, Mean Corpuscular Volume 92, Mean Corpuscular Hemoglobin 30, Mean Corpuscular Hemoglobin Concent 33, Red Cell Distribution Width 13.5, Platelet Count 315, Mean Platelet Volume 9.5, Immature Granulocyte % (Auto) 1, Neutrophils (%) (Auto) 84H, Lymphocytes (%) (Auto) 9L, Monocytes (%) (Auto) 6, Eosinophils (%) (Auto) 0, Basophils (%) (Auto) 0, Neutrophils # (Auto) 9.5H, Lymphocytes # (Auto) 1.1, Monocytes # (Auto) 0.7, Eosinophils # (Auto) 0.0, Basophils # (Auto) 0.0, Immature Granulocyte # (Auto) 0.1, Sodium Level 137, Potassium Level 3.3L, Chloride Level 101, Carbon Dioxide Level 26, Anion Gap 10, Blood Urea Nitrogen 29H, Creatinine 0.93, Estimat Glomerular Filtration Rate 61, BUN/Creatinine Ratio 31, Glucose Level 118H, Calcium Level 8.3L, Corrected Calcium 8.9, Total Bilirubin 0.3, Aspartate Amino Transf (AST/SGOT) 17, Alanine Aminotransferase (ALT/SGPT) 15, Alkaline Phosphatase 56, Total Protein 6.3L, Albumin 3.3 A/P-Cardiology Assessment/Admission Diagnosis Right eye vision loss with concern for Giant Cell Arteritis - Excisional biopsy, right temporal artery by Dr. Tracy on 04-13-23 H/O GI bleed in January 2023 - [facility] endoscopy showing severe gastritis, hiatal hernia and esophageal stricture and sigmoid diverticulosis. No active bleeding was reported during scope - OAC was stoppped at time of discharge by Dr Beauchamp Acute on chronic diastolic CHF - MPI of 09-22-2022 showed no evidence of ischemia or infarction. No regional wall motion abnormality. MPI 56% - clinically improving ; shortness of breath significantly improved SSS and PAF - S/P ILR implant 03-01-[address] Garnica - OAC with Xarelto - had been held d/t GIB with signif anemia in January 2023 and stopped at time of discharge by Dr Beauchamp - EP consult with Dr. Miller who has advised continued medical management, recommended starting Flecainide or Amiodarone per last note in Jul 2022. - ECG on 10-14-22: NSR with LBBB and PACs - Recurrent A Fib for which she underwent cardioversion on 11/16/[address] Green - was started on Flecainide 100mg BID - a-fib with RVR on EKG of 12-10-22. Flecainide d/c'd, amiodarone initiated on 12-11-22 - ext elec CV to sinus rhythm on 12-14-22 Hypothyroidism,treated with thyroid replacement therapy. Managed by PCP Hypertension, stable Carotid art disease, history of s/p R CEA by Dr Adams on 05/26/21 at [place], [place] Mild bilat dz per u/s of 09-10-2021 Mitral regurg and mild pulm htn - Echocardiogram of 12-04-[address] Garnica showed LVEF 55-65%. LA mildly dilated. Mod to severe MR. PASP 40-45 mmHg - Echocardiogram of 09-02-20 showed LVEF 55-60%. Grade 1 diastolic dysfunction. Mild MR. AoV sclerosis with mild regurg. PASP 40-45 mmHg - sleep studies by Dr. Brown on 02-14-21 did not indicate sleep apnea - a-fib seen during the test - Echo of 12-11-22: LVEF 55-60%, mod to sev enlargement of LA, mild enlargement of RA, mild to mod MR, triv AI, L pleural eff, PASP 45-50 mmHg COPD with nocturnal hypoxemia Extobaccoism Chronic, bilateral leg swelling, likely related to venous insuff Chronic scoliosis and degenerative cervical spinal disease (chronically stiff neck and shoulders) Discussion and Recomendations S/P excisional biopsy of the right temporal artery d/t concern for giant cell arteritis on 04-13-[address] Tracy Known h/o PAF - previously had been on OAC up until hospitalization for GIB and anemia in Jan 2023 (see endo reports above) - we advise resumption of OAC with Eliquis for stroke prophylaxis when ok with medical/surgical services Monitor lab closely Continue all other medications Further recs will be based on her hospital course We would like to thank Dr. Beauchamp for this consult TINA BERG MD FACP FAC CCDS Apr 14, 2023 21:58
[2023-04-15 04:00] VITALS: BP 135/68
[2023-04-15] MEDS ORDERED: PRD20T PO (04:57)
[2023-04-15] MEDS ORDERED: APIX5TAB PO (04:57)
--- NOTE | 2023-04-15 04:58 | Discharge Inst-Skilled Nursing ---
Discharge Inst-Skilled NF Reconcile Patient Problems Problems Reviewed?: Yes Patient Instructions Patient Problems: Blindness Consult/Follow Up/Orders Follow Up Appt.: Dr Poole at [place] [facility] Skilled NF Admit to: [facility] Certification ([facility]) I certify that SNF services are required to be given on an inpatient basis because of the above named patient's need for penitentiary care on a continuing basis for the conditions(s) for which he/she was receiving inpatient hospital services prior to his/her transfer to the SNF. [facility] Order: Nursing Services, Cytology Supervisor-Evaluate & Treat, Physical Therapy-Evaluate & Treat Oxygen Delivery Method: Room Air Discharge Diet: No Restrictions Resuscitation Status: Full Code New & Resume Previous Orders New Medications: Apixaban (Eliquis) 5 Mg Tablet 5 MG PO BID, #60 TAB 11 Refills Prednisone (Prednisone) 20 Mg Tab 60 MG PO DAILY, #60 TAB 3 pills once daily for 7 days then 2.5 (50mg) pills once daily for [address] Poole for dosing Continued Medications: Acetaminophen (Tylenol) 325 Mg Tablet 325 MG PO Q4H PRN for PAIN-MILD (1-4), #30 TAB Albuterol Sulfate (Ventolin Hfa) 1 Puff Puff 2 PUFF INH Q4H PRN for SHORTNESS OF BREATH, #1 EA Aspirin (Aspirin EC) 81 Mg Tablet.dr 81 MG PO HS, #30 TAB Atorvastatin Calcium (Atorvastatin Calcium) 20 Mg Tablet 20 MG PO HS, #30 TAB Bethanechol Chloride (Bethanechol Chloride) 25 Mg Tablet 25 MG PO Q12H, #60 TAB Bifidobacterium Infantis (Align Jr) 10.5 Mg (10 Million Cell) Tab.chew 10.5 MG PO HS, #20 TAB Cholecalciferol (Vitamin D3) (Vitamin D3) 50 Mcg (2000 Unit) Capsule 50 MCG PO DAILY, #30 CAP Cyanocobalamin (Vitamin B-12) (Vitamin B-12) 500 Mcg Tablet 500 MCG PO HS, #30 TAB Docusate Sodium (Colace) 100 Mg Capsule 100 MG PO DAILY, #30 CAP Furosemide (Lasix) 40 Mg Tablet 20 MG PO Q48H, #30 TAB Ipratropium/Albuterol Sulfate (Iprat-Albut 0.5-3(2.5) mg/3 ml) 0.5 Mg-3 Mg (2.5 Mg Base)/3 Ml Ampul.neb 3 ML IH Q4H PRN for SHORTNESS OF BREATH, #30 EACH Levothyroxine Sodium (Synthroid) 75 Mcg Tablet 75 MCG PO ,,, #30 TAB Levothyroxine Sodium (Synthroid) 88 Mcg Tablet 88 MCG PO CHAVEZ,,,SA, #30 TAB Pantoprazole Sodium (Pantoprazole Sodium) 40 Mg Tablet.dr 40 MG PO BID, #60 TAB Polyethylene Glycol 3350 (Miralax) 17 Gram Powd.pack 17 GM PO DAILY, #30 EACH Potassium Chloride (Klor-Con M20) 20 Meq Tab.er.prt 20 MEQ PO DAILY, #30 EACH Sertraline HCl (Sertraline HCl) 50 Mg Tablet 50 MG PO HS, TAB Melina Benjamin Apr 15, 2023 04:58 MELINA BENJAMIN DO Apr 15, 2023 04:58
--- NOTE | 2023-04-15 04:59 | Discharge Summary ---
Diagnosis/Chief Complaint Date of Admission Apr 09, 2023 at 12:55 Date of Discharge Discharge Date: Apr 15, 2023 Discharge Diagnosis Assessment: Ms. Mendoza is a 83 y/o female presented for visual changes in both eyes. 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 -on IV methylprednisolone -pending temporal artery biopsy. Hopefully will go today KAY -BUN 31->30 -CR 1.07->0.96 -IV fluids -encourage oral fluid intake when not NPO for biopsy A Fib -anticoagulants held til after surgery -loop recorder Hypothyroid -managed with home medications Anemia -Hbg 10.6->10.4 -continue to monitor Reason Hospital Visit CC: Blindness referred for urgent admit from Dr Barrie Lei [employer] HPI: This is an 83yoWF clinic patient of Dr Poole who is well known to me from multiple admits from COVID to AF RVR episodes who presented as a direct admit from Dr Barrie Lei office in [place] due to concern for giant cell arteritis versus sinus venous thrombosis as sources of severe decreased vision. She can't read due to low vision and this happened relatively abruptly. Papillditis is in the differential since Dr Lei did not see evidence of pappiledema so steroids were indicated along with inflammatory disease w/o and temporal artery biopsy will be performed. Discharge Summary Discharge Physical Examination Allergies: Coded Allergies: codeine (Unverified Allergy, Mild, Vomiting, 02/18/22) adhesive tape (Unverified Allergy, Unknown, 02/18/22) amoxicillin (Unverified Allergy, Unknown, 02/01/23) PT HAS TOLERATED CEPHALOSPORINS IN PAST (ROCEPHIN, CEFEPIME, CEFDINIR) Vitals & I&Os Vital Signs Date Time Temp Pulse Resp B/P (MAP) Pulse Ox O2 Delivery O2 Flow Rate FiO2 04/15/23 12:48 71 04/15/23 11:46 36.5 16 167/74 95 Room Air 0.00 04/09/23 22:07 21 General Appearance: Alert, Oriented X3, Cooperative Hospital Course Was the Problem List Reviewed?: Yes Ms. Mendoza is an 83 y/o female w/ PMH COPD, A Fib, CHF, HTN, anemia, hypothyroidism presenting as a direct admit from her ophthalmology clinic with Dr. Lei for concerns of giant cell arteritis on 04/09. She notes that it started with the bottom of her right eye, with some cloudiness which progressed to red in color with dots throughout. She had similar visual changes in her left eye a day later, and she has began losing the ability to see/read. She has not taken her blood thinner for 3 months. She was placed on IV methyprednisolone. Initial coag labs showed normal PT, INR, PTT, but D dimer of 1.31. Head CT/MRI, and Brain MRA on 04/09 showed no evidence of acute infarction or aneurysm, but was positive for chronic microvascular disease, a very small caliber right A1 segment, and the right anterior cerebral artery supplied predominantly via patent anterior communicating artery. She has not had any visual changes since her initial presentation to [facility]. A carotid ultrasound and temporal artery biopsy were performed 04/13. Carotid US showed mild bilateral plaques, with no hemodynamically significant stenosis. Ms. Mendoza is doing well today and will be discharged back to [facility]. Biopsy will be reviewed once results are available. She denies any pain today or changes in vision since admission. She denies SOB/CP or palpitations. She is ready to be going home. Per cardiology, she will be started on her blood thinners again. Labs (last 24 hrs) Laboratory Tests 04/09/23 13:45: White Blood Count 7.4, Red Blood Count 3.79L, Hemoglobin 11.3L, Hematocrit 35, Mean Corpuscular Volume 93, Mean Corpuscular Hemoglobin 30, Mean Corpuscular Hemoglobin Concent 32, Red Cell Distribution Width 13.6, Platelet Count 247, Mean Platelet Volume 9.0, Immature Granulocyte % (Auto) 0, Neutrophils (%) (Auto) 66, Lymphocytes (%) (Auto) 20, Monocytes (%) (Auto) 8, Eosinophils (%) (Auto) 4, Basophils (%) (Auto) 1, Neutrophils # (Auto) 4.9, Lymphocytes # (Auto) 1.5, Monocytes # (Auto) 0.6, Eosinophils # (Auto) 0.3, Basophils # (Auto) 0.1, Immature Granulocyte # (Auto) 0.0, Erythrocyte Sedimentation Rate 19, Prothrombin Time 13.5, INR Comment 1.0, Activated Partial Thromboplast Time 29, D-Dimer 1.31H, Sodium Level 138, Potassium Level 3.8, Chloride Level 101, Carbon Dioxide Level 27, Anion Gap 10, Blood Urea Nitrogen 15, Creatinine 0.95, Estimat Glomerular Filtration Rate 59, BUN/Creatinine Ratio 16, Glucose Level 86, Calcium Level 8.8, Corrected Calcium 9.2, Phosphorus Level 3.6, Total Bilirubin 0.5, Aspartate Amino Transf (AST/SGOT) 20, Alanine Aminotransferase (ALT/SGPT) 13, Alkaline Phosphatase 78, C-Reactive Protein High Sensitivity 0.97H, Total Protein 6.7, Total Protein (PEP) 6.9, Albumin 3.5, Vitamin D 25-Hydroxy 53.3 04/10/23 05:05: White Blood Count 3.5L, Red Blood Count 3.29L, Hemoglobin 9.9L, Hematocrit 31L, Mean Corpuscular Volume 93, Mean Corpuscular Hemoglobin 30, Mean Corpuscular Hemoglobin Concent 32, Red Cell Distribution Width 13.4, Platelet Count 260, Mean Platelet Volume 9.2, Immature Granulocyte % (Auto) 1, Neutrophils (%) (Auto) 84H, Lymphocytes (%) (Auto) 15, Monocytes (%) (Auto) 1, Eosinophils (%) (Auto) 0, Basophils (%) (Auto) 0, Neutrophils # (Auto) 2.9, Lymphocytes # (Auto) 0.5L, Monocytes # (Auto) 0.0, Eosinophils # (Auto) 0.0, Basophils # (Auto) 0.0, Immature Granulocyte # (Auto) 0.0, Sodium Level 138, Potassium Level 3.8, Chloride Level 102, Carbon Dioxide Level 26, Anion Gap 10, Blood Urea Nitrogen 17, Creatinine 0.97, Estimat Glomerular Filtration Rate 58, BUN/Creatinine Ratio 18, Glucose Level 161H, Calcium Level 8.5, Corrected Calcium 9.3, Total Bilirubin 0.4, Aspartate Amino Transf (AST/SGOT) 18, Alanine Aminotransferase (ALT/SGPT) 12, Alkaline Phosphatase 68, Total Protein 5.7L, Albumin 3.0L 04/10/23 08:45: Urine Color YELLOW, Urine Clarity CLEAR, Urine pH 7.0, Urine Specific [place] 1.020, Urine Protein 1+H, Urine Glucose (UA) NEGATIVE, Urine Ketones NEGATIVE, Urine Nitrite NEGATIVE, Urine Bilirubin NEGATIVE, Urine Urobilinogen 0.2, Urine Leukocyte Esterase NEGATIVE, Urine RBC (Auto) NEGATIVE, Urine RBC NONE, Urine WBC NONE, Urine Squamous Epithelial Cells 0-2, Urine Crystals NONE, Urine Bacteria TRACE, Urine Casts NONE, Urine Mucus NEGATIVE, Urine Culture Indicated NO 04/11/23 05:19: White Blood Count 14.2H, Red Blood Count 3.54L, Hemoglobin 10.6L, Hematocrit 33L , Mean Corpuscular Volume 92, Mean Corpuscular Hemoglobin 30, Mean Corpuscular Hemoglobin Concent 33, Red Cell Distribution Width 13.5, Platelet Count 295, Mean Platelet Volume 9.1, Immature Granulocyte % (Auto) 1, Neutrophils (%) (Auto) 91H, Lymphocytes (%) (Auto) 6L, Monocytes (%) (Auto) 2, Eosinophils (%) (Auto) 0, Basophils (%) (Auto) 0, Neutrophils # (Auto) 12.9H, Lymphocytes # (Auto) 0.8L, Monocytes # (Auto) 0.3, Eosinophils # (Auto) 0.0, Basophils # (Auto) 0.0, Immature Granulocyte # (Auto) 0.1, Sodium Level 137, Potassium Level 3.5L, Chloride Level 100, Carbon Dioxide Level 26, Anion Gap 11, Blood Urea Nitrogen 22H, Creatinine 0.89, Estimat Glomerular Filtration Rate 64, BUN/Creatinine Ratio 25, Glucose Level 134H, Calcium Level 8.5, Corrected Calcium 9.0, Total Bilirubin 0.3, Aspartate Amino Transf (AST/SGOT) 17, Alanine Aminotransferase (ALT/SGPT) 14, Alkaline Phosphatase 71, Total Protein 6.6, Albumin 3.4, Neutrophils % (Manual) 94, Lymphocytes % (Manual) 5, Monocytes % (Manual) 1, Anisocytosis SLIGHT, Acanthocytes SLIGHT 04/12/23 04:28: White Blood Count 10.4, Red Blood Count 3.55L, Hemoglobin 10.6L, Hematocrit 33L, Mean Corpuscular Volume 92, Mean Corpuscular Hemoglobin 30, Mean Corpuscular Hemoglobin Concent 33, Red Cell Distribution Width 13.5, Platelet Count 296, Mean Platelet Volume 8.8L, Immature Granulocyte % (Auto) 1, Neutrophils (%) (Auto) 93H, Lymphocytes (%) (Auto) 5L, Monocytes (%) (Auto) 1, Eosinophils (%) (Auto) 0, Basophils (%) (Auto) 0, Neutrophils # (Auto) 9.7H, Lymphocytes # (Auto) 0.5L, Monocytes # (Auto) 0.1, Eosinophils # (Auto) 0.0, Basophils # (Auto) 0.0, Immature Granulocyte # (Auto) 0.1, Sodium Level 138, Potassium Level 3.8, Chloride Level 101, Carbon Dioxide Level 26, Anion Gap 11, Blood Urea Nitrogen 31H, Creatinine 1.07, Estimat Glomerular Filtration Rate 52, BUN/Creatinine Ratio 29, Glucose Level 151H, Calcium Level 8.4L, Corrected Ca lcium 9.0, Total Bilirubin 0.3, Aspartate Amino Transf (AST/SGOT) 14, Alanine Aminotransferase (ALT/SGPT) 13, Alkaline Phosphatase 60, Total Protein 6.2L, Albumin 3.3 04/13/23 05:00: White Blood Count 7.6, Red Blood Count 3.47L, Hemoglobin 10.4L, Hematocrit 32L, Mean Corpuscular Volume 91, Mean Corpuscular Hemoglobin 30, Mean Corpuscular Hemoglobin Concent 33, Red Cell Distribution Width 13.7, Platelet Count 260, Mean Platelet Volume 10.6, Immature Granulocyte % (Auto) 1, Neutrophils (%) (Auto) 90H, Lymphocytes (%) (Auto) 8L, Monocytes (%) (Auto) 2, Eosinophils (%) (Auto) 0, Basophils (%) (Auto) 0, Neutrophils # (Auto) 6.8, Lymphocytes # (Auto) 0.6L, Monocytes # (Auto) 0.1, Eosinophils # (Auto) 0.0, Basophils # (Auto) 0.0, Immature Granulocyte # (Auto) 0.1 04/13/23 05:45: Sodium Level 136, Potassium Level 3.8, Chloride Level 101, Carbon Dioxide Level 26, Anion Gap 9, Blood Urea Nitrogen 30H, Creatinine 0.96, Estimat Glomerular F iltration Rate 59, BUN/Creatinine Ratio 31, Glucose Level 144H, Calcium Level 8.3L, Corrected Calcium 8.9, Total Bilirubin 0.3, Aspartate Amino Transf (AST/SGOT) 16, Alanine Aminotransferase (ALT/SGPT) 15, Alkaline Phosphatase 58, Total Protein 6.1L, Albumin 3.3 04/14/23 05:30: White Blood Count 11.3H, Red Blood Count 3.89, Hemoglobin 11.6, Hematocrit 36, Mean Corpuscular Volume 92, Mean Corpuscular Hemoglobin 30, Mean Corpuscular Hemoglobin Concent 33, Red Cell Distribution Width 13.5, Platelet Count 315, Mean Platelet Volume 9.5, Immature Granulocyte % (Auto) 1, Neutrophils (%) (Auto) 84H, Lymphocytes (%) (Auto) 9L, Monocytes (%) (Auto) 6, Eosinophils (%) (Auto) 0, Basophils (%) (Auto) 0, Neutrophils # (Auto) 9.5H, Lymphocytes # (Auto) 1.1, Monocytes # (Auto) 0.7, Eosinophils # (Auto) 0.0, Basophils # (Auto) 0.0, Immature Granulocyte # (Auto) 0.1, Sodium Level 137, Potassium Level 3.3L, Chloride Level 101, Carbon Dioxide Level 26, Anion Gap 10, Blood Urea Nitrogen 29H, Creatinine 0.93, Estimat Glomerular Filtration Rate 61, BUN/Creatinine Ratio 31, Glucose Level 118H, Calcium Level 8.3L, Corrected Calcium 8.9, Total Bilirubin 0.3, Aspartate Amino Transf (AST/SGOT) 17, Alanine Aminotransferase (ALT/SGPT) 15, Alkaline Phosphatase 56, Total Protein 6.3L, Albumin 3.3 04/15/23 05:10: White Blood Count 10.7, Red Blood Count 3.81, Hemoglobin 11.4L, Hematocrit 35, Mean Corpuscular Volume 91, Mean Corpuscular Hemoglobin 30, Mean Corpuscular Hemoglobin Concent 33, Red Cell Distribution Width 13.3, Platelet Count 287, Mean Platelet Volume 9.3, Immature Granulocyte % (Auto) 1, Neutrophils (%) (Auto ) 77H, Lymphocytes (%) (Auto) 15, Monocytes (%) (Auto) 7, Eosinophils (%) (Auto) 0, Basophils (%) (Auto) 0, Neutrophils # (Auto) 8.2H, Lymphocytes # (Auto) 1.6, Monocytes # (Auto) 0.8, Eosinophils # (Auto) 0.0, Basophils # (Auto) 0.0, Immature Granulocyte # (Auto) 0.1, Sodium Level 137, Potassium Level 3.1L, Chloride Level 100, Carbon Dioxide Level 28, Anion Gap 9, Blood Urea Nitrogen 25H, Creatinine 0.86, Estimat Glomerular Filtration Rate 67, BUN/Creatinine Ratio 29, Glucose Level 102, Calcium Level 8.0L, Corrected Calcium 8.7, Total Bilirubin 0.4, Aspartate Amino Transf (AST/SGOT) 14, Alanine Aminotransferase (ALT/SGPT) 13, Alkaline Phosphatase 51, Total Protein 5.7L, Albumin 3.1L Pending Labs Laboratory Tests 04/09/23 13:45: White Blood Count 7.4, Red Blood Count 3.79, Hemoglobin 11.3, Hematocrit 35, Mean Corpuscular Volume 93, Mean Corpuscular Hemoglobin 30, Mean Corpuscular Hemoglobin Concent 32, Red Cell Distribution Width 13.6, Platelet Count 247, Edel n Platelet Volume 9.0, Immature Granulocyte % (Auto) 0, Neutrophils (%) (Auto) 66, Lymphocytes (%) (Auto) 20, Monocytes (%) (Auto) 8, Eosinophils (%) (Auto) 4, Basophils (%) (Auto) 1, Neutrophils # (Auto) 4.9, Lymphocytes # (Auto) 1.5, Monocytes # (Auto) 0.6, Eosinophils # (Auto) 0.3, Basophils # (Auto) 0.1, Immature Granulocyte # (Auto) 0.0, Erythrocyte Sedimentation Rate 19, Prot hrombin Time 13.5, INR Comment 1.0, Activated Partial Thromboplast Time 29, D- Dimer 1.31, Sodium Level 138, Potassium Level 3.8, Chloride Level 101, Carbon Dioxide Level 27, Anion Gap 10, Blood Urea Nitrogen 15, Creatinine 0.95, Estimat Glomerular Filtration Rate 59, BUN/Creatinine Ratio 16, Glucose Level 86, Calcium Level 8.8, Corrected Calcium 9.2, Phosphorus Level 3.6, Total Bilirubin 0.5, Aspartate Amino Transf (AST/SGOT) 20, Alanine Aminotransferase (ALT/SGPT) 13, Alkaline Phosphatase 78, C-Reactive Protein High Sensitivity 0.97, Total Protein 6.7, Total Protein (PEP) 6.9, Albumin 3.5, Vitamin D 25-Hydroxy 53.3 04/10/23 05:05: White Blood Count 3.5, Red Blood Count 3.29, Hemoglobin 9.9, Hematocrit 31, Mean Corpuscular Volume 93, Mean Corpuscular Hemoglobin 30, Mean Corpuscular Hemoglobin Concent 32, Red Cell Distribution Width 13.4, Platelet Count 260, Mean Platelet Volume 9.2, Immature Granulocyte % (Auto) 1, Neutrophils (%) (Auto) 84, Lymphocytes (%) (Auto) 15, Monocytes (%) (Auto) 1, Eosinophils (%) (Auto) 0, Basophils (%) (Auto) 0, Neutrophils # (Auto) 2.9, Lymphocytes # (Auto) 0.5, Monocytes # (Auto) 0.0, Eosinophils # (Auto) 0.0, Basophils # (Auto) 0.0, Immature Granulocyte # (Auto) 0.0, Sodium Level 138, Potassium Level 3.8, Ch loride Level 102, Carbon Dioxide Level 26, Anion Gap 10, Blood Urea Nitrogen 17, Creatinine 0.97, Estimat Glomerular Filtration Rate 58, BUN/Creatinine Ratio 18, Glucose Level 161, Calcium Level 8.5, Corrected Calcium 9.3, Total Bilirubin 0.4, Aspartate Amino Transf (AST/SGOT) 18, Alanine Aminotransferase (ALT/SGPT) 12, Alkaline Phosphatase 68, Total Protein 5.7, Albumin 3.0 04/10/23 08:45: Urine Color YELLOW, Urine Clarity CLEAR, Urine pH 7.0, Urine Specific [place] 1.020, Urine Protein 1+, Urine Glucose (UA) NEGATIVE, Urine Ketones NEGATIVE, Urine Nitrite NEGATIVE, Urine Bilirubin NEGATIVE, Urine Urobilinogen 0.2, Urine Leukocyte Esterase NEGATIVE, Urine RBC (Auto) NEGATIVE, Urine RBC NONE, Urine WBC NONE, Urine Squamous Epithelial Cells 0-2, Urine Crystals NONE, Urine Bacteria TRACE, Urine Casts NONE, Urine Mucus NEGATIVE, Urine Culture Indicated NO 04/11/23 05:19: White Blood Count 14.2, Red Blood Count 3.54, Hemoglobin 10.6, Hematocrit 33, Mean Corpuscular Volume 92, Mean Corpuscular Hemoglobin 30, Mean Corpuscular Hemoglobin Concent 33, Red Cell Distribution Width 13.5, Platelet Count 295, Mean Platelet Volume 9.1, Immature Granulocyte % (Auto) 1, Neutrophils (%) (Auto) 91, Lymphocytes (%) (Auto) 6, Monocytes (%) (Auto) 2, Eosinophils (%) (Auto) 0, Basophils (%) (Auto) 0, Neutrophils # (Auto) 12.9, Lymphocytes # (Auto) 0.8, Monocytes # (Auto) 0.3, Eosinophils # (Auto) 0.0, Basophils # (Auto) 0.0, Immature Granulocyte # (Auto) 0.1, Sodium Level 137, Potassium Level 3.5, Chloride Level 100, Carbon Dioxide Level 26, Anion Gap 11, Blood Urea Nitrogen 22, Creatinine 0.89, Estimat Glomerular Filtration Rate 64, BUN/Creatinine Ratio 25, Glucose Level 134, Calcium Level 8.5, Corrected Calcium 9.0, Total Bilirubin 0.3, Aspartate Amino Transf (AST/SGOT) 17, Alanine Aminotransferase (ALT/SGPT) 14, Alkaline Phosphatase 71, Total Protein 6.6, Albumin 3.4, Neutrophils % (Manual) 94, Lymphocytes % (Manual) 5, Monocytes % (Manual) 1, Anisocytosis SLIGHT, Acanthocytes SLIGHT 04/12/23 04:28: White Blood Count 10.4, Red Blood Count 3.55, Hemoglobin 10.6, Hematocrit 33, Mean Corpuscular Volume 92, Mean Corpuscular Hemoglobin 30, Mean Corpuscular Hemoglobin Concent 33, Red Cell Distribution Width 13.5, Platelet Count 296, Mean Platelet Volume 8.8, Immature Granulocyte % (Auto) 1, Neutrophils (%) (Auto) 93, Lymphocytes (%) (Auto) 5, Monocytes (%) (Auto) 1, Eosinophils (%) (Auto) 0, Basophils (%) (Auto) 0, Neutrophils # (Auto) 9.7, Lymphocytes # (Auto) 0.5, Monocytes # (Auto) 0.1, Eosinophils # (Auto) 0.0, Basophils # (Auto) 0.0, Immature Granulocyte # (Auto) 0.1, Sodium Level 138, Potassium Level 3.8, Chloride Level 101, Carbon Dioxide Level 26, Anion Gap 11, Blood Urea Nitrogen 31, Creatinine 1.07, Estimat Glomerular Filtration Rate 52, BUN/Creatinine Ratio 29, Glucose Level 151, Calcium Level 8.4, Corrected Calcium 9.0, Total Bilirubin 0.3, Aspartate Amino Transf (AST/SGOT) 14, Alanine Aminotransferase (ALT/SGPT) 13, Alkaline Phosphatase 60, Total Protein 6.2, Albumin 3.3 04/13/23 05:00: White Blood Count 7.6, Red Blood Count 3.47, Hemoglobin 10.4, Hematocrit 32, Mean Corpuscular Volume 91, Mean Corpuscular Hemoglobin 30, Mean Corpuscular Hemoglobin Concent 33, Red Cell Distribution Width 13.7, Platelet Count 260, Mean Platelet Volume 10.6, Immature Granulocyte % (Auto) 1, Neutrophils (%) (Auto) 90, Lymphocytes (%) (Auto) 8, Monocytes (%) (Auto) 2, Eosinophils (%) (Auto) 0, Basophils (%) (Auto) 0, Neutrophils # (Auto) 6.8, Lymphocytes # (Auto) 0.6, Monocytes # (Auto) 0.1, Eosinophils # (Auto) 0.0, Basophils # (Auto) 0.0, Immature Granulocyte # (Auto) 0.1 04/13/23 05:45: Sodium Level 136, Potassium Level 3.8, Chloride Level 101, Carbon Dioxide Level 26, Anion Gap 9, Blood Urea Nitrogen 30, Creatinine 0.96, Estimat Glomerular Filtration Rate 59, BUN/Creatinine Ratio 31, Glucose Level 144, Calcium Level 8.3, Corrected Calcium 8.9, Total Bilirubin 0.3, Aspartate Amino Transf (AST/SGOT) 16, Alanine Aminotransferase (ALT/SGPT) 15, Alkaline Phosphatase 58, Total Protein 6.1, Albumin 3.3 04/14/23 05:30: White Blood Count 11.3, Red Blood Count 3.89, Hemoglobin 11.6, Hematocrit 36, Mean Corpuscular Volume 92, Mean Corpuscular Hemoglobin 30, Mean Corpuscular Hemoglobin Concent 33, Red Cell Distribution Width 13.5, Platelet Count 315, Mean Platelet Volume 9.5, Immature Granulocyte % (Auto) 1, Neutrophils (%) (Auto) 84, Lymphocytes (%) (Auto) 9, Monocytes (%) (Auto) 6, Eosinophils (%) (Auto) 0, Basophils (%) (Auto) 0, Neutrophils # (Auto) 9.5, Lymphocytes # (Auto) 1.1, Monocytes # (Auto) 0.7, Eosinophils # (Auto) 0.0, Basophils # (Auto) 0.0, Immature Granulocyte # (Auto) 0.1, Sodium Level 137, Potassium Level 3.3, Chloride Level 101, Carbon Dioxide Level 26, Anion Gap 10, Blood Urea Nitrogen 29, Creatinine 0.93, Estimat Glomerular Filtration Rate 61, BUN/Creatinine Ratio 31, Glucose Level 118, Calcium Level 8.3, Corrected Calcium 8.9, Total Bilirubin 0.3, Aspartate Amino Transf (AST/SGOT) 17, Alanine Aminotransferase (ALT/SGPT) 15, Alkaline Phosphatase 56, Total Protein 6.3, Albumin 3.3 04/15/23 05:10: White Blood Count 10.7, Red Blood Count 3.81, Hemoglobin 11.4, Hematocrit 35, Mean Corpuscular Volume 91, Mean Corpuscular Hemoglobin 30, Mean Corpuscular Hem oglobin Concent 33, Red Cell Distribution Width 13.3, Platelet Count 287, Mean Platelet Volume 9.3, Immature Granulocyte % (Auto) 1, Neutrophils (%) (Auto) 77, Lymphocytes (%) (Auto) 15, Monocytes (%) (Auto) 7, Eosinophils (%) (Auto) 0, Basophils (%) (Auto) 0, Neutrophils # (Auto) 8.2, Lymphocytes # (Auto) 1.6, Monocytes # (Auto) 0.8, Eosinophils # (Auto) 0.0, Basophils # (Auto) 0.0, Immature Granulocyte # (Auto) 0.1, Sodium Level 137, Potassium Level 3.1, Chloride Level 100, Carbon Dioxide Level 28, Anion Gap 9, Blood Urea Nitrogen 25, Creatinine 0.86, Estimat Glomerular Filtration Rate 67, BUN/Creatinine Ratio 29, Glucose Level 102, Calcium Level 8.0, Corrected Calcium 8.7, Total Bilirubin 0.4, Aspartate Amino Transf (AST/SGOT) 14, Alanine Aminotransferase (ALT/SGPT) 13, Alkaline Phosphatase 51, Total Protein 5.7, Albumin 3.1 Discharge Home Medications: Active Scripts Active Toprol Xl (Metoprolol Succinate) 100 Mg Tab.er.24h 100 Mg PO DAILY Prednisone 20 Mg Tab 60 Mg PO DAILY 3 pills once daily for 7 days then 2.5 (50mg) pills once daily for [address] Poole for dosing Eliquis (Apixaban) 5 Mg Tablet 5 Mg PO BID Pantoprazole Sodium 40 Mg Tablet. 40 Mg PO BID Colace (Docusate Sodium) 100 Mg Capsule 100 Mg PO DAILY Iprat-Albut 0.5-3(2.5) mg/3 ml (Ipratropium/Albuterol Sulfate) 0.5 Mg-3 Mg (2.5 Mg Base)/3 Ml Ampul.neb 3 Ml IH Q4H PRN Bethanechol Chloride 25 Mg Tablet 25 Mg PO Q12H Align Jr (Bifidobacterium Infantis) 10.5 Mg (10 Million Cell) Tab.chew 10.5 Mg PO HS Klor-Con M20 (Potassium Chloride) 20 Meq Tab.er.prt 20 Meq PO DAILY Lasix (Furosemide) 40 Mg Tablet 20 Mg PO Q48H Ventolin Hfa (Albuterol Sulfate) 1 Puff Puff 2 Puff INH Q4H PRN Miralax (Polyethylene Glycol 3350) 17 Gram Powd.pack 17 Gm PO DAILY Synthroid (Levothyroxine Sodium) 88 Mcg Tablet 88 Mcg PO CHAVEZ,,,SA Synthroid (Levothyroxine Sodium) 75 Mcg Tablet 75 Mcg PO MO,,FR Atorvastatin Calcium 20 Mg Tablet 20 Mg PO HS Vitamin D3 (Cholecalciferol (Vitamin D3)) 50 Mcg (2000 Unit) Capsule 50 Mcg PO DAILY Aspirin EC (Aspirin) 81 Mg Tablet.dr 81 Mg PO HS Vitamin B-12 (Cyanocobalamin (Vitamin B-12)) 500 Mcg Tablet 500 Mcg PO HS Tylenol (Acetaminophen) 325 Mg Tablet 325 Mg PO Q4H PRN Reported Sertraline HCl 50 Mg Tablet 50 Mg PO HS Instructions to patient/family Please see electronic discharge instructions given to patient. ELVA BEAUCHAMP DO Apr 15, 2023 04:59
[2023-04-15] MEDS: POTASSIUM CHLORIDE 10 MEQ TABLET PO SCH (05:09)
[2023-04-15] MEDS: LEVOTHYROXINE 88 MCG TABLET PO SCH (05:09)
[2023-04-15] MEDS: IBUPROFEN 200 MG TABLET PO SCH ×2 (05:10→12:05)
[2023-04-15] MEDS: ACETAMINOPHEN 500 MG TABLET PO SCH (05:10)
[2023-04-15 05:22] LABS: BASOPHILS % (AUTO) 0 % (0-10); EOSINOPHILS % (AUTO) 0 % (0-10); HEMATOCRIT 35 % (35-52); HEMOGLOBIN 11.4 g/dL (11.5-16.0); LYMPHOCYTES # (AUTO) 1.6 10^3/uL (1.0-4.0); LYMPHOCYTES % (AUTO) 15 % (12-44); MEAN CORPUSCULAR HEMOGLOBIN 30 pg (25-34); MEAN CORPUSCULAR HGB CONC 33 g/dL (32-36); MEAN CORPUSCULAR VOLUME 91 fL (80-99); MEAN PLATELET VOLUME 9.3 fL (9.0-12.2); MONOCYTES # (AUTO) 0.8 10^3/uL (0.0-1.0); MONOCYTES % (AUTO) 7 % (0-12); NEUTROPHILS # (AUTO) 8.2 10^3/uL (1.8-7.8); NEUTROPHILS % (AUTO) 77 % (42-75); PLATELET COUNT 287 10^3/uL (130-400); WHITE BLOOD COUNT 10.7 10^3/uL (4.3-11.0)
[2023-04-15 05:28] LABS: ALBUMIN 3.1 GM/DL (3.2-4.5); POTASSIUM 3.1 MMOL/L (3.6-5.0)
[2023-04-15 05:31] LABS: TOTAL PROTEIN 5.7 GM/DL (6.4-8.2)
[2023-04-15 05:33] LABS: BILIRUBIN,TOTAL 0.4 MG/DL (0.1-1.0)
[2023-04-15 05:34] LABS: CREATININE SERUM 0.86 MG/DL (0.60-1.30)
[2023-04-15 07:44] VITALS: BP 181/78
[2023-04-15 07:56] VITALS: BP 150/74
[2023-04-15] MEDS: SENNOSIDES 8.6 MG TABLET PO SCH (09:01)
[2023-04-15] MEDS: PANTOPRAZOLE 40 MG TABLET PO SCH (09:01)
[2023-04-15] MEDS: APIXABAN 5 MG TABLET PO SCH (09:01)
[2023-04-15] MEDS: DOCUSATE SODIUM 100 MG CAPSULE PO SCH (09:01)
[2023-04-15] MEDS: BETHANECHOL 25 MG TABLET PO SCH (09:01)
[2023-04-15] MEDS: predniSONE 20 MG TABLET PO SCH (09:02)
[2023-04-15] MEDS ORDERED: POTASSIUM CHLORIDE 20 MEQ TABLET PO ONE (10:00)
--- NOTE | 2023-04-15 10:38 | Physical Therapy Daily Note ---
PT Daily Note-Current Subjective Pt is agreeable to PT. Denies pain. Pain Numeric Pain Scale: 0-No Pain Location: No Pain Reported Section J - Health Conditions 1. Rarely or not at all 2. Occasionally 3. Frequently 4. Almost constantly 8. Unable to answer Pain Effect on Sleep: 88 Pain Interference with Therapy: 88 Pain Interference w/Day-to-Day: 88 Transfers SCALE: Activities may be completed with or without assistive devices. 2-Xfenhejqgt-lvhrxux completes the activity by him/herself with no assistance from a helper. 5-Set-up or Clean-up Assistance-helper sets up or cleans up; patient completes activity. [place] assists only prior to or following the activity. 4-Supervision or Touching Assistance-helper provides verbal cues and/or touching/steadying and/or contact guard assistance as patient completes activity. Assistance may be provided throughout the activity or intermittently. 3-Partial/Moderate Assistance-helper does LESS THAN HALF the effort. [place] lifts, holds or supports trunk or limbs, but provides less than half the effort. 2-Substantial/Maximal Assistance-helper does MORE THAN HALF the effort. [place] lifts or holds trunk or limbs and provides more than half the effort. 0-Fdzalbbxf-mbzwvt does ALL the effort. Patient does none of the effort to complete the activity. Or, the assistance of 2 or more helpers is required for the patient to complete the activity. If activity was not attempted, code reason: 7-Patient Refused. 9-Not Applicable-not attempted and the patient did not perform the activity before the current illness, exacerbation or injury. 10-Not Attempted due to Environmental Limitations-(lack of equipment, weather restraints, etc.). 88-Not Attempted due to Medical Conditions or Safety Concerns. Lying to Sitting/Side of Bed(Q: 4 Sit to Stand (QC): 4 Weight Bearing Right Lower Extremity: Right Full Weight Bearing Left Lower Extremity: Left Full Weight Bearing Gait Training Does the Patient Walk?: Yes Distance: 350ft Walk 10 feet (QC): 4 Walk 50 ft with 2 Turns(QC): 4 Walk 150 ft (QC): 4 Gait Persons Needed: 1 Gait Assistive Device: FWW Treatments Pt completed supine to sit with SBA/Mod I. Pt completed functional transfers with SBA. Pt ambulated 350ft with the FWW and CGA. After treatment session, pt was left with nursing for a shower. All needs met. 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 PT Half-Way Goals Time Frame: Apr 17, 2023 Roll Left & Right (QC): 6 Sit to Lying (QC): 6 Lying-Sitting on Side/Bed(QC): 6 Sit to Stand (QC): 6 Chair/Lss-yb-Fbvsy Xfer(QC): 6 Toilet Transfer (QC): 6 Car Transfer (QC): 6 Does the Patient Walk: Yes Walk 10 feet (QC): 6 Walk 50ft with 2 Turns (QC): 6 Walk 150 ft (QC): 6 Walking 10ft on Uneven Surface: 6 1 Step (curb) (QC): 6 4 Steps (QC): 6 12 Steps (QC): 6 Picking up an Object (QC): 6 PT Plan Problem List Problem List: Activity Tolerance, Functional Strength, Safety, Balance, Gait, Transfer, Bed Mobility, ROM Treatment/Plan Treatment Plan: Continue Plan of Care, Discontinue PT, goals met Treatment Plan: Bed Mobility, Education, Functional Activity Samy, Functional Strength, Gait, Safety, Therapeutic Exercise, Transfers Treatment Duration: Apr 17, 2023 Frequency: 5 times per week Estimated Hrs Per Day: .25 hour per day Patient and/or Family Agrees t: Yes Safety Risks/Education Patient Education: Gait Training, Transfer Techniques, Correct Positioning, Sa fety Issues Teaching Recipient: Patient Teaching Methods: Demonstration, Discussion Response to Teaching: Reinforcement Needed Discharge Recommendations Therapy Discharge Recommendati: Post Acute PT Time Time In: 826 Time Out: 842 DATE: Apr 15, 2023 Total Billed Treatment Time: 16 Total Billed Treatment 16 min 1 visit GT x 1 ADALBERTO ROCHA PT Apr 15, 2023 10:38
[2023-04-15] MEDS ORDERED: METO100T6 PO ×2 (11:28→11:30)
[2023-04-15 11:38] VITALS: BP 167/74
[2023-04-15 11:46] VITALS: BP 167/74
[2023-04-15] MEDS: FUROSEMIDE 40 MG TABLET PO SCH (12:05)
[2023-04-19] MEDS ORDERED: LEVOTHYROXINE 75 MCG TABLET PO SCH (06:30)
--- NOTE | 2023-04-21 12:33 | Physician Query Clarification ---
PQ-Further Specificity Admission/Discharge Admission Date: Apr 09, 2023 at 12:55 Discharge Date: Apr 15, 2023 at 13:32 Dr. Benjamin, The medical record reflects the following clinical scenario: History/Risk Factors: HTN w/acute on chronic diastolic CHF, KYA, PAF, SSS, Pulmonary HTN Clinical Findings: started with the bottom of her right eye, with some cloudiness which progressed to red in color with dots throughout. She had similar visual changes in her left eye a day later, and she has began losing the ability to see/read. focal disruption of the internal elastic lamina; no active inflammation or giant cells identified Treatment: IV Methylprednisolone, temporal artery biopsy Question: Can you further specify per the clinical indicators above? What is the underlying cause of the bilateral vision loss after study? Please document a response in the Progress Notes or Discharge Summary. 1. bilateral vision loss not further specified 2. Other, with explanation of the clinical findings. Please specify the underlying cause of the bilateral vision loss after study. 3. Clinically undetermined, no explanation for the clinical findings. PHYSICIAN RESPONSE Can you specify per above: 1 In responding to this query, please exercise your independent professional judgment. The purpose of this communication is to more accurately reflect the complexity of your patients condition. The fact that a question is asked does not imply that any particular answer is desired or expected. Thank you for your timely response to this clarification. Requestors name: Ross THIS PHYSICIAN QUERY FORM IS A PERMANENT PART OF THE MEDICAL RECORD ROSS MARISCAL Apr 21, 2023 12:33 ELVA BENJAMIN DO Apr 21, 2023 17:10
--- NOTE | 2023-04-22 09:20 | Physician Query Clarification ---
PQ-Further Specificity Admission/Discharge Admission Date: Apr 09, 2023 at 12:55 Discharge Date: Apr 15, 2023 at 13:32 Dr. Lopez, The medical record reflects the following clinical scenario: History/Risk Factors: jose de jesus vision loss, KAY, chronic diastolic heart failure, PAF, Pulmonary HTN Clinical Findings: MPI of 09-22-2022 showed no evidence of ischemia or infarction. No regional wall motion abnormality. MPI 56% - clinically improving ; shortness of breath significantly improved No edema Treatment: Furosemide 20 mg PO Question: Can you clarify the acuity of the diastolic CHF for this patient stay per the clinical indicators above? H&P states chronic diastolic CHF and the cardiology consult states acute on chronic diastolic CHF Please document a response in the Progress Notes or Discharge Summary. 1. chronic diastolic CHF 2. acute on chronic diastolic CHF 3. Other, with explanation of the clinical findings. 4. Clinically undetermined, no explanation for the clinical findings. In responding to this query, please exercise your independent professional judgment. The purpose of this communication is to more accurately reflect the complexity of your patients condition. The fact that a question is asked does not imply that any particular answer is desired or expected. Thank you for your timely response to this clarification. Requestors name: Ross THIS PHYSICIAN QUERY FORM IS A PERMANENT PART OF THE MEDICAL RECORD ROSS MARISCAL Apr 22, 2023 09:20
== END 2023-04-15 13:32 | DRG 115 ==
LOC: 4TH 12:55
PROVIDERS: ADMIT Internal Medicine; ATTEND Internal Medicine
PROC: 03BS0ZX Excision of Right Temporal Artery, Open Approach, Diagnostic (ICD-10-PCS; principal; 2023-04-13 12:01)
DX: H54.3 Unqualified visual loss, both eyes (principal); N17.9 Acute kidney failure, unspecified; I50.32 Chronic diastolic (congestive) heart failure; I11.0 Hypertensive heart disease with heart failure; I48.0 Paroxysmal atrial fibrillation; I49.5 Sick sinus syndrome; J44.9 Chronic obstructive pulmonary disease, unspecified; I44.7 Left bundle-branch block, unspecified; I34.0 Nonrheumatic mitral (valve) insufficiency; I27.20 Pulmonary hypertension, unspecified; I87.2 Venous insufficiency (chronic) (peripheral); E03.9 Hypothyroidism, unspecified; E78.00 Pure hypercholesterolemia, unspecified; H91.90 Unspecified hearing loss, unspecified ear; F41.9 Anxiety disorder, unspecified; D64.9 Anemia, unspecified; I73.9 Peripheral vascular disease, unspecified; M41.9 Scoliosis, unspecified; M47.812 Spondylosis without myelopathy or radiculopathy, cervical region; I77.9 Disorder of arteries and arterioles, unspecified; Z87.891 Personal history of nicotine dependence; Z79.899 Other long term (current) drug therapy; Z79.82 Long term (current) use of aspirin; Z88.1 Allergy status to other antibiotic agents; Z88.5 Allergy status to narcotic agent
CPT/HCPCS: 36410; 36415; 70450; 70544; 70553; 71275; 76937; 80053; 81000; 82306; 84100; 84155; 84165; 85007; 85025; 85027; 85379; 85610; 85652; 85730; 86141; 88305; 93880; 94760